=== PATIENT | female | born 1980 | race Caucasian/White ===

== ENCOUNTER 2020-03-01 20:25 | Emergency (ER) | payer BC, SELFPAY ==
--- NOTE | ~2020-03-01 | CT_ITS ---
EXAMINATION: CT abdomen pelvis wo con DATE: 03/01/2020 22:30 INDICATION: Left flank pain TECHNIQUE: Computed tomography (CT) of the abdomen and pelvis was performed without intravenous contr ast. The dose-length product (DLP) was 443.23 mGy-cm. Automated exposure control and iterative recons truction technique were employed. COMPARISON: 12/14/2018 FINDINGS: The lung bases are clear. The heart size is normal. The liver, spleen, pancreas, gallbladde r, and adrenal glands are normal. The right kidney is unremarkable. There are nonobstructing stones o f the left kidney measuring up to 2 mm. No stones are identified in the ureters or bladder. There is no hydronephrosis or hydroureter. No pathologically enlarged abdominal or pelvic lymph nodes are iden tified. There is no free intraperitoneal gas or evidence of bowel obstruction. There is calcified ath erosclerosis of the aorta and many of the other arteries. There is liquid stool throughout much of th e colon which can reflect diarrhea. IMPRESSION: 1. Nonobstructing left nephrolithiasis. No correlate for left flank pain. No hydronephrosis or hydrou reter. Reviewed, dictated and finalized at location A. IMPRESSION: 1. Nonobstructing left nephrolithiasis. No correlate for left flank pain. No hy dronephrosis or hydroureter.
[2020-03-01 20:27] VITALS: BP 136/99; PULSE 77; RESP 19; TEMP 36.9; O2SAT 100
[2020-03-01 20:37] LABS: Basophils Absolute Auto 0.1 K/mm3 (0.0-0.1); Basophils Percent Auto 0.5 % (0.2-1.2); Eosinophils Absolute Auto 0.2 K/mm3 (0-0.3); Eosinophils Percent Auto 1.3 % (0-4.4); Hemoglobin 15.6 g/dL (12.0-15.0); Immature Granulocyte Absolute 0.05 K/mm3 (0.00-0.031); Immature Granulocyte Percent A 0.4 % (0-0.5); Lymphocytes Percent Auto 26.8 % (18.3-44.2); Mean Corpuscular HGB Conc 35.5 g/dl (32-36); Mean Corpuscular Volume 90.3 fl (80-100); Monocytes Absolute Auto 1.1 K/mm3 (0.1-0.6); Monocytes Percent Auto 7.6 % (2.6-8.5); Neutrophils Absolute Auto 8.8 K/mm3 (1.3-6.7); Neutrophils Percent Auto 63.4 % (45.5-73.1); Platelet Count Result 275 k/mm3 (150-375); Red Blood Count 4.87 M/mm3 (4.2-5.4); Red Cell Distribution Width 12.4 % (11.5-14.5); White Blood Count 13.8 K/mm3 (4.5-10.0)
[2020-03-01 20:48] LABS: Add Urine Microscopic? YES; Appearance Urine Clear (Clear); Bacteria Urine Trace /hpf; Bilirubin Urine Negative (Negative); Blood Urine 1+ (Negative); Color Urine Yellow (Yellow); Glucose Urine UA Negative (Negative); Ketones Urine Negative (Negative); Leukocyte Esterase Ur Negative LEU/UL (Negative); Mucus Urine Rare /lpf; Nitrate Urine Negative (Negative); Protein Urine Negative (Negative); RBC Urine 0-2 /hpf (0-2); Specific Grav Ur 1.021 (1.001-1.035); Squamous Epithelial Cell Urine Occasional /hpf (Few); Urobilinogen Urine Negative mg/dL (<2.0); WBC Urine 0-3 /hpf
[2020-03-01 20:50] LABS: Blood Urea Nitrogen 16 mg/dL (7-17); Calcium 9.4 mg/dL (8.4-10.2); Carbon Dioxide 21 mmol/L (22-30); Chloride 105 mmol/L (98-107); Estimated CRCL calculation 90 ml/min; Estimated Glomerular Filt Rate > 60; Glucose 91 mg/dL (65-105); Potassium 3.9 mmol/L (3.4-5.0); Sodium 138 mmol/L (137-145)
--- NOTE | 2020-03-01 21:51 | ED.ABDPAIN ---
HPI - Abdominal Pain General Chief Complaint: Abdominal Pain Stated Complaint: kidney stone left side Time Seen by Provider: 03/01/20 21:50 History of Present Illness HPI narrative: Left flank pain for a couple days. Radiating to the LLQ. Associated with nausea. Feels like a kidney stone. Additionally she noted darker urine. She does report urinary frequency, but no more than usual. No fever, dysuria. Related Data Home Medications Medication Instructions Recorded Confirmed Daily Multivitamin 09/02/19 lisinopril 09/02/19 omeprazole 09/02/19 Allergies Allergy/AdvReac Type Severity Reaction Status Date / Time ketorolac Allergy Mild VOMIT Verified 05/31/19 13:03 tramadol Allergy Mild VOMITING Verified 05/31/19 13:03 Review of Systems Review of Systems: All systems reviewed & are unremarkable except as noted in HPI and below Constitutional: Constitutional: Denies fever(s) Cardiovascular: Cardiovascular: Denies chest pain Respiratory: Respiratory: Denies dyspnea Gastrointestinal: Gastrointestinal: Reports nausea Genitourinary: Genitourinary: Denies hematuria, Reports nocturia, Denies dysuria and Reports flank pain Neurologic: Denies numbness and Denies weakness [facility] Past Medical History Medical History Cholecystitis Depression GERD (gastroesophageal reflux disease) HTN (hypertension) Multiple kidney stones Neuropathy Documented in past medical history, patient unsure induced hypertension Radial head fracture Seasonal allergies Surgical History Surgical History H/O: X3 H/O: hysterectomy Status post cystoscopy with ureteral stent placement Family History Family History Mother Diabetes mellitus Social History Social History Smoking status: Current every day smoker Tobacco type: cigarettes Alcohol intake: current Substance use: never Gender identity (if verbalized by the patient): Female Exam Const: General: healthy appearing, no acute distress and alert Orientation/consciousness: patient oriented x3 HENMT: Head: normal to inspection Neck: Neck: normal visual inspection and no lymphadenopathy Chest: Chest palpation & inspection: no tenderness Resp: Effort & Inspection: normal respiratory effort Auscultation: clear to auscultation bilaterally, no rales, no rhonchi and no wheezes Cardio: Jugular venous distension: no JVD Rate: regular rate Rhythm: regular rhythm Heart sounds: no murmurs GI: Inspection: non-distended GI Palp: Yes Soft to palpation and No Tenderness to palpation present (GI) Skin: General skin exam: normal color Neuro: General: patient oriented x3 and moves all extremities Speech: normal speech Extrem: General: no edema Psych: Appearance: well kempt Affect: normal affect Course Vital Signs Vital signs: Vital Signs Temperature 36.9 C 03/01/20 20:27 Pulse Rate 77 03/01/20 20:27 Respiratory Rate 19 03/01/20 20:27 Blood Pressure 136/99 H 03/01/20 20:27 Pulse Oximetry 100 03/01/20 20:27 Temperature 36.9 C 03/01/20 20:27 Pulse Rate 77 03/01/20 20:27 Respiratory Rate 19 03/01/20 20:27 Blood Pressure 136/99 H 03/01/20 20:27 Pulse Oximetry 100 03/01/20 20:27 MDM - Abdominal Pain Differential Diagnosis Differential diagnosis: Likely calculus of kidney, constipation and diverticulitis Medical Records Attestation: I reviewed the patient's medical records. Lab Data Attestation: I reviewed the patient's lab results. Result diagrams: 03/01/20 20:30 03/01/20 20:30 Labs: Lab Results 03/01/20 03/01/20 03/01/20 Range/Units 20:30 20:30 20:37 WBC 13.8 H (4.5-10.0) K/mm3 RBC 4.87 (4.2-5.4) M/mm3 Hgb 15.6 H (12.0-15.0) g
--- NOTE | 2020-03-02 | PC.NURSE ---
LATE ENTRY; ON 03/01/2020 AT APPROX 2341 PT STATES THAT HER PAIN IS UNCHANGED AFTER THE 1G OFIRMEV. THIS RN INSTRUCTED PT THAT THE EDP HAS HER UP FOR ADMISSION. PT STATES NO, THERE IS SOMETHING WRONG WITH MY KIDNEY, I NEED SOMETHING FOR THIS PAIN . EDP AWARE.
== END 2020-03-02 00:15 | disposition home or self-care (01) ==
PROVIDERS: Emergency Provider Emergency Medicine; PCP Internal Medicine
DX: R10.9 Unspecified abdominal pain (principal); Z87.442 Personal history of urinary calculi; F17.210 Nicotine dependence, cigarettes, uncomplicated; K21.9 Gastro-esophageal reflux disease without esophagitis; I10 Essential (primary) hypertension
CPT/HCPCS: 36415; 74176; 80048; 81001; 85025; 96374; 96375; 99284; J0131; J3010

== ENCOUNTER 2020-11-26 17:04 | Emergency (ER) | payer BC, MEDICAID, SELFPAY ==
[2020-11-26 17:06] VITALS: PULSE 120; RESP 18; TEMP 36.4; O2SAT 98
[2020-11-26 17:55] LABS: Add Urine Microscopic? YES; Appearance Urine Clear (Clear); Bacteria Urine 1+ /hpf; Bilirubin Urine Negative (Negative); Blood Urine Negative (Negative); Color Urine Colorless (Yellow); Glucose Urine UA Negative (Negative); Ketones Urine Negative (Negative); Leukocyte Esterase Ur 1+ LEU/UL (Negative); Mucus Urine Rare /lpf; Nitrate Urine Negative (Negative); Protein Urine Negative (Negative); RBC Urine 0-2 /hpf (0-2); Specific Grav Ur 1.005 (1.001-1.035); Squamous Epithelial Cell Urine Few /hpf (Few); Urobilinogen Urine Negative mg/dL (<2.0)
[2020-11-26] MEDS: ONDANSETRON HCL ODT 4 MG TABLET PO (18:19)
[2020-11-26] MEDS: HYDROmorphone HCL INJ (*CRX) 1 MG/ML SYR IM (18:20)
[2020-11-26] MEDS: predniSONE 20 MG TABLET 60 MG PO (18:20)
--- NOTE | 2020-11-26 18:22 | ED.GENADULT ---
HPI - General Adult General Chief complaint: Extremity Injury, Lower Stated complaint: LEFT LEG PAIN/DECREASED URINE OUTPUT Time Seen by Provider: 11/26/20 17:18 Source: patient Mode of arrival: ambulatory Limitations: no limitations History of Present Illness HPI narrative: Patient is 40 years old white female presented to the ED with sharp stabbing pain at the left thigh posteriorly started roughly 6 days ago. Gets worse with standing, better with ice and the steroid. Few days ago patient started on penicillin and prednisone for dental abscess and is telling me that the prednisone make her leg pain less potent. This morning patient noted that her urine output is not enough as usual. patient denies bowel dysfunction, bladder dysfunction, altered sensation, focal weakness, or saddle numbness, as well Patient denies any fever, chills, nausea, vomiting, diarrhea, constipation, abdominal pain. Patient had history of chronic lower back pain for years. He is to have an injection at L5-S1. Patient is telling me that she had lower back pain almost daily for years, sometime please once a month which lasted for about 10 days. History of hypertension, and smoking. Patient drove to the emergency room by her . Related Data Home Medications Medication Instructions Recorded Confirmed lisinopril 09/02/19 cyclobenzaprine mg 11/26/20 penicillin V potassium 11/26/20 Allergies Allergy/AdvReac Type Severity Reaction Status Date / Time ketorolac Allergy Mild VOMIT Verified 11/26/20 17:08 tramadol Allergy Mild VOMITING Verified 11/26/20 17:08 Review of Systems Review of Systems: Narrative: CONSTITUTIONAL: Denies fever, chills, or sweats. EYES: Denies visual changes, redness, or discharge. ENT: Denies rhinorrhea, congestion, sore throat, or otalgia. CARDIOVASCULAR: Denies chest pain, palpitations, or edema. RESPIRATORY: Denies cough or dyspnea. GASTROINTESTINAL: Denies abdominal pain, nausea, vomiting, or diarrhea. GENITOURINARY: Denies dysuria or hematuria. SKIN: Denies rash or itching. MUSCULOSKELETAL: Denies back pain, joint pain, or myalgia. NEUROLOGIC: Denies headache, numbness, or weakness. PSYCHIATRIC: Denies anxiety or depression. [facility] Past Medical History Medical History (Updated 11/26/20 @ 18:30 by Nataliia Santiago MD) Cholecystitis Depression GERD (gastroesophageal reflux disease) HTN (hypertension) Multiple kidney stones Neuropathy Documented in past medical history, patient unsure induced hypertension Radial head fracture Seasonal allergies Surgical History Surgical History H/O: X3 H/O: hysterectomy Status post cystoscopy with ureteral stent placement Family History Family History Mother Diabetes mellitus Social History Social History Smoking status: Current every day smoker Tobacco type: cigarettes Alcohol intake: current Substance use: never Gender identity (if verbalized by the patient): Female Exam Narrative: Exam Narrative: General appearance: Well-developed, well-nourished Skin: Normal color Head: Normocephalic, nontraumatic Eyes: Clear conjunctiva ENT: Oropharynx normal, ears normal, nose normal Neck: Supple, nontender Chest and respiratory: Airway patent, no respiratory distress, no accessory muscle use Heart: Regular rate/rhythm Abdomen: Soft, nontender, no organomegaly, quiet bowel sounds Vascular: Normal peripheral pulses, normal capillary refill. Musculoskeletal: Slight limited range of motion of left hip because of pain. Diffuse tenderness across lumbar area and in the middle of left buttock. Neurologic: Alert and oriented ?3, CALCULATION REVIEWER is normal as tested, no gross motor deficit, positive leg straight test on the left side.
[2020-11-26 18:48] VITALS: BP 150/90; PULSE 75; O2SAT 100
== END 2020-11-26 18:49 | disposition home or self-care (01) ==
PROVIDERS: Emergency Provider Emergency Medicine; PCP Internal Medicine
DX: M54.16 Radiculopathy, lumbar region (principal); I10 Essential (primary) hypertension; K21.9 Gastro-esophageal reflux disease without esophagitis; Z87.442 Personal history of urinary calculi; F17.210 Nicotine dependence, cigarettes, uncomplicated; Z96.0 Presence of urogenital implants
CPT/HCPCS: 81001; 96372; 99283; A9270; J1170; J7512

== ENCOUNTER 2020-12-26 21:44 | Emergency (ER) | payer BC, MEDICAID, SELFPAY ==
--- NOTE | ~2020-12-26 | CT_ITS ---
EXAMINATION: CT abdomen pelvis wo con DATE: 12/26/2020 23:02 INDICATION: Left flank pain TECHNIQUE: Computed tomography (CT) of the abdomen and pelvis was performed without intravenous contr ast. The dose-length product (DLP) was 231.06 mGy-cm. Automated exposure control and iterative recons truction technique were employed. COMPARISON: 03/01/2020 FINDINGS: The lung bases are clear. The heart size is normal. The liver, spleen, pancreas, gallbladde r, and adrenal glands are normal. There is a 6 mm nonobstructing stone of the left kidney. The right kidney is normal. There is a 6 mm stone in the proximal left ureter with mild hydroureter. No patholo gically enlarged abdominal or pelvic lymph nodes are identified. Colonic diverticulosis is present wi thout evidence of diverticulitis. The appendix is normal. There is mild lumbar spondylosis. IMPRESSION: 1. 6 mm stone of the left proximal ureter causing mild left hydroureter. Consider KUB for treatment p cecil purposes. 2. Nonobstructing left nephrolithiasis. Reviewed, dictated and finalized at location A. IMPRESSION: 1. 6 mm stone of the left proximal ureter causing mild left hydroureter. Consid er KUB for treatment planning purposes. 2. Nonobstructing left nephrolithiasis.
[2020-12-26 21:47] VITALS: BP 186/117; PULSE 70; RESP 18; TEMP 36.4; O2SAT 98
[2020-12-26 22:20] LABS: Anion Gap 7 mmol/L (8-16); Blood Urea Nitrogen 13 mg/dL (7-17); Calcium 9.2 mg/dL (8.4-10.2); Carbon Dioxide 20 mmol/L (22-30); Chloride 110 mmol/L (98-107); Estimated CRCL calculation 103 ml/min; Estimated Glomerular Filt Rate > 60; Glucose 83 mg/dL (65-105); Potassium 3.7 mmol/L (3.4-5.0); Sodium 137 mmol/L (137-145)
[2020-12-26 22:34] VITALS: PULSE 61; RESP 18; O2SAT 98
[2020-12-26] MEDS: SODIUM CHLORIDE 0.9% IV 1,000 ML 999 ML IV CONT (22:52)
[2020-12-26] MEDS: ONDANSETRON INJ 4 MG/2 ML VIAL IV PUSH (22:53)
[2020-12-26 22:54] LABS: Basophils Percent Auto 0.3 % (0.2-1.2); Eosinophils Absolute Auto 0.2 K/mm3 (0-0.3); Hematocrit 38.6 % (37.0-47.0); Hemoglobin 13.8 g/dL (12.0-15.0); Immature Granulocyte Absolute 0.02 K/mm3 (0.00-0.031); Immature Granulocyte Percent A 0.2 % (0-0.5); Lymphocytes Absolute Auto 3.65 K/mm3 (0.9-3.2); Lymphocytes Percent Auto 38.3 % (18.3-44.2); Mean Corpuscular HGB Conc 35.8 g/dl (32-36); Mean Corpuscular Hemoglobin 31.7 pg (26-34); Mean Corpuscular Volume 88.7 fl (80-100); Mean Platelet Volume 10.2 fl (7.4-10.4); Monocytes Absolute Auto 0.8 K/mm3 (0.1-0.6); Monocytes Percent Auto 8.7 % (2.6-8.5); Neutrophils Absolute Auto 4.8 K/mm3 (1.3-6.7); Neutrophils Percent Auto 50.5 % (45.5-73.1); Platelet Count Result 293 k/mm3 (150-375); Red Blood Count 4.35 M/mm3 (4.2-5.4); White Blood Count 9.5 K/mm3 (4.5-10.0)
[2020-12-26] MEDS: MORPHINE SULFATE (*CRX) 4 MG/ML INJ IV PUSH ×2 (22:54→23:54)
[2020-12-26 23:07] LABS: Add Urine Microscopic? YES; Appearance Urine Cloudy (Clear); Bacteria Urine Trace /hpf; Bilirubin Urine Negative (Negative); Blood Urine 1+ (Negative); Calcium Oxalate Crystals Urine Present /hpf; Color Urine Yellow (Yellow); Glucose Urine UA Negative (Negative); Ketones Urine Negative (Negative); Leukocyte Esterase Ur Trace LEU/UL (Negative); Mucus Urine Heavy /lpf; Nitrate Urine Negative (Negative); Protein Urine 2+ mg/dL (Negative); RBC Urine 21-50 /hpf (0-2); Specific Grav Ur 1.028 (1.001-1.035); Squamous Epithelial Cell Urine Many /hpf (Few); WBC Urine 16-20 /hpf
--- NOTE | 2020-12-26 23:13 | PC.NURSE ---
Report to KHADAR Savage, to continue care.
--- NOTE | 2020-12-26 23:36 | ED.GENADULT ---
HPI - General Adult General Chief complaint: Abdominal Pain Stated complaint: kidney stone Time Seen by Provider: 12/26/20 22:34 History of Present Illness HPI narrative: Patient 40-year-old female who presents to emergency department chief complaint of flank pain. Patient reports she has pain on the left side reports it feels similar to whenever she had kidney stones before in the past. Reports that she has had up to a 7 mm stone is been able to pass independently but has required stents before in the past and also other urological procedures stone patient reports that she has a urologist that she is well-known to and is of started taking her Flomax at home already. Related Data Home Medications Medication Instructions Recorded Confirmed lisinopril 09/02/19 cyclobenzaprine mg 11/26/20 penicillin V potassium 11/26/20 Allergies Allergy/AdvReac Type Severity Reaction Status Date / Time ketorolac AdvReac Mild VOMIT Verified 12/26/20 22:52 tramadol AdvReac Mild VOMITING Verified 12/26/20 22:52 Review of Systems Review of Systems: Narrative: A 10 system review of systems was completed on the patient and is negative except for what is stated in the HPI. Nursing and ancillary documentation was reviewed. [facility] Past Medical History Medical History (Updated 12/26/20 @ 23:39 by Jose Roa MD) Cholecystitis Depression GERD (gastroesophageal reflux disease) HTN (hypertension) Multiple kidney stones Neuropathy Documented in past medical history, patient unsure induced hypertension Radial head fracture Seasonal allergies Surgical History Surgical History H/O: X3 H/O: hysterectomy Status post cystoscopy with ureteral stent placement Family History Family History Mother Diabetes mellitus Social History Social History Smoking status: Current every day smoker Tobacco type: cigarettes Alcohol intake: current Substance use: never Gender identity (if verbalized by the patient): Female Exam Narrative: Exam Narrative: GENERAL: Well-appearing, well-nourished, and in no acute distress. HEAD: Normocephalic, atraumatic. EYES: PERRLA and EOMI. ENT: Nares clear, no rhinorrhea or epistaxis. Mucous membranes moist. NECK: Supple. CHEST: Clear to auscultation. No respiratory distress. HEART: Regular rate and rhythm. No murmur heard. Normal peripheral pulses. ABDOMEN: Soft, nontender, nondistended, normal active bowel sounds. EXTREMITIES: Normal range of motion. No edema. SKIN: Warm, dry, no rash. NEURO: No focal deficits. Alert and oriented x3. PSYCH: Normal mood and affect. Course Course Emergency Course: Patient is feeling much better at this time. Vital Signs Vital signs: Vital Signs Temperature 36.4 C L 12/26/20 21:47 Pulse Rate 70 12/26/20 21:47 Respiratory Rate 18 12/26/20 21:47 Blood Pressure 186/117 H 12/26/20 21:47 Pulse Oximetry 98 12/26/20 21:47 Temperature 36.4 C L 12/26/20 21:47 Pulse Rate 61 12/26/20 22:34 Respiratory Rate 18 12/26/20 22:34 Blood Pressure 186/117 H 12/26/20 21:47 Pulse Oximetry 98 12/26/20 22:34 Medical Decision Making Vital Signs Vital Signs: Vital Signs Temperature 36.4 C L 12/26/20 21:47 Pulse Rate 70 12/26/20 21:47 Respiratory Rate 18 12/26/20 21:47 Blood Pressure 186/117 H 12/26/20 21:47 Pulse Oximetry 98 12/26/20 21:47 Temperature 36.4 C L 12/26/20 21:47 Pulse Rate 61 12/26/20 22:34 Respiratory Rate 18 12/26/20 22:34 Blood Pressure 186/117 H 12/26/20 21:47 Pulse Oximetry 98 12/26/20 22:34 Lab Data Result diagrams: 12/26/20 22:46 12/26/20 21:59 Labs: Lab Results 12/26/20 12/26/20 12/26/20 Range/Units 21:59 22:46 22:47 WBC 9
[2020-12-26] MEDS: CIPROFLOXACIN 500 MG TAB PO (23:55)
[2020-12-27] VITALS: BP 180/110; PULSE 57; RESP 12; O2SAT 96
== END 2020-12-27 | disposition home or self-care (01) ==
PROVIDERS: Emergency Provider Emergency Medicine; PCP Internal Medicine
DX: N20.1 Calculus of ureter (principal); N39.0 Urinary tract infection, site not specified; K21.9 Gastro-esophageal reflux disease without esophagitis; I10 Essential (primary) hypertension; G62.9 Polyneuropathy, unspecified
CPT/HCPCS: 36415; 74176; 80048; 81001; 85025; 87086; 87088; 96361; 96374; 96375; 99284; A9270; J2270; J2405; J7030

== ENCOUNTER 2020-12-28 12:42 | Outpatient (CLI) | payer BC, MEDICAID, SELFPAY ==
--- NOTE | ~2020-12-28 | XR_ITS ---
EXAMINATION: XR abdomen/kub 1V INDICATION: Left ureteral stone TECHNIQUE: Supine views of the abdomen were obtained on 2 radiographs. COMPARISON: CT, 12/26/2020 FINDINGS: A subtle 6 mm calcification projects between the left L2 and L3 transverse processes in the expected location of the proximal left ureter and corresponding to the expected position of the left ureteral stone identified on the comparison CT. No additional urolithiasis is identified. There are phleboliths of the pelvis. The bowel gas pattern is normal. The lung bases are clear. The visualized osseous structures are unremarkable. IMPRESSION: 1. 6 mm stone projecting in the expected location of the proximal left ureter. Reviewed, dictated and finalized at location A.
== END 2020-12-28 12:43 | disposition home or self-care (01) ==
PROVIDERS: PCP Internal Medicine; Visit Provider Nurse Practitioner Adult Health
DX: N20.1 Calculus of ureter (principal)
CPT/HCPCS: 74018

== ENCOUNTER 2020-12-29 02:12 | Day surgery (SDC) | payer BC, MEDICAID, SELFPAY ==
[2020-12-28 13:42] VITALS: BMI 30.1
[2020-12-29] VITALS (9 sets, daily range): BP systolic 156–194; BP diastolic 103–119; PULSE 60–83; RESP 13–20; TEMP 36.4–36.6; O2SAT 95–99
--- NOTE | ~2020-12-29 | XR_ITS ---
EXAMINATION: XR fluoroscopy no charge INDICATION: Left-sided stone extraction TECHNIQUE: Four intraoperative fluoroscopic images are submitted for review. Total fluoroscopic time was 23.8 seconds. COMPARISON: 12/28/2020 FINDINGS: The central melt specialist fluoroscopic image is unremarkable. The left ureter is cannulated on one of the p rovided fluoroscopic images. IMPRESSION: 1. Please refer to procedure note for full details. Reviewed, dictated and finalized at location A.
--- NOTE | 2020-12-29 06:25 | ECG_ITS ---
Measurements Intervals [place] Rate: 66 P: -2 [place]: 177 QRS: 12 QRSD: 101 T: 20 QT: 415 QTc: 437 Interpretive Statements SINUS RHYTHM NORMAL ECG Electronically Signed On 12-29-2020 14:15:47 CDT by Leonel Méndez D.O.
--- NOTE | 2020-12-29 06:43 | WPDHPUPDATE1 ---
History and Physical Update Update Date/Time: 12/29/20 06:43 History and Physical has been reviewed, including an updated exam of the patient. There are NO changes in the patient's condition. Risks, benefits, and alternatives have been discussed and questions answered. Patient agrees to proceed with procedure.
--- NOTE | 2020-12-29 06:49 | WPDHPUPDATE1 ---
History and Physical Update Update Date/Time: 12/29/20 06:49 History and Physical has been reviewed, including an updated exam of the patient. There are NO changes in the patient's condition. Risks, benefits, and alternatives have been discussed and questions answered. Patient agrees to proceed with procedure.
--- NOTE | 2020-12-29 13:21 | WPDANESEPPF ---
Anes - Initial Pre Proc Eval Procedure: Operation Date: 12/29/20 15:30 Proposed Procedures p Cystoscopy, Left Ureteroscopy, Left Retrograde Pyelogram, Left Stone Extraction, Left Stent Placement - Maximino Gonzalez MD s Possible Holmium Laser Procedure - Maximino Gonzalez MD Date/Time: 12/29/20 13:21 Surgeon: Maximino Gonzalez MD Pre Op Diagnosis: left renal stone/Ureteral Stone Patient Data Age: 40 Gender: F Height: 1.6 m Weight: 77.11 kg Allergies Allergy/AdvReac Type Severity Reaction Status Date / Time ketorolac AdvReac Mild VOMITING/HE Verified 12/29/20 13:39 ADACHE tramadol AdvReac Mild VOMITING/HE Verified 12/29/20 13:39 ADACHE Home Medications Medication Instructions Recorded Confirmed Type hydrocodone-acetaminophen 1 tablet PO Q6H PRN 3 Days #12 12/26/20 12/29/20 Rx tablet ondansetron 4 mg PO Q8H PRN #10 tablet 12/26/20 12/29/20 Rx ciprofloxacin HCl [Cipro] 500 mg PO BID 12/28/20 12/29/20 History lisinopril-hydrochlorothiazide 1 tablet PO BID 12/28/20 12/29/20 History omeprazole 20 mg PO DAILY 12/28/20 12/29/20 History tamsulosin [Flomax] 0.4 mg PO DAILY 12/28/20 12/29/20 History Patient hx anesthesia problems: none Family hx anesthesia problems: none PMFSH Past Medical History Medical History Cholecystitis Depression GERD (gastroesophageal reflux disease) HTN (hypertension) Multiple kidney stones Neuropathy Documented in past medical history, patient unsure Obesity induced hypertension Radial head fracture Seasonal allergies Smoker Surgical History Surgical History H/O: X3 H/O: hysterectomy Status post cystoscopy with ureteral stent placement Family History Family History Mother Diabetes mellitus Social History Social History Smoking packs per day: 0.5 Smoking cigarettes per day: 10.0 Years smoked: 25 Smoking pack-years: 12.50 Smoking status: Current every day smoker Tobacco type: cigarettes Alcohol intake: never Substance use: never Substance use type: does not use Living arrangements: with family Gender identity (if verbalized by the patient): Female Spiritual care concerns: No Anes - Eval Final PreProcedure Day of Procedure 12/29/20 13:21 Patient weight: obese Heart: regular rate and rhythm Lungs: clear to auscultation and normal air movement Airway: Mallampati scale class II Neurological: alert and oriented Last oral intake: >/= 8 hours ASA classification: III Emergent: no Anesthetic plan: proceed Anesthesia type and monitoring: general LMA Informed Consent: The patient's anesthetic plan and its attendant risks and benefits were discussed with the patient/family/POA. Questions were solicited and answers provided to the satisfaction of the patient/family/POA.
[2020-12-29] MEDS: LACTATED RINGERS 1,000 ML 30 ML IV CONT (14:35)
[2020-12-29] MEDS: fentaNYL CITRATE INJ (*CRX) 100 MCG/2 ML VIAL 50 MCG IV PUSH (14:36)
[2020-12-29] MEDS: ceFAZolin 2 GM/D5W 50 ML 2 GM/50 ML BAG IVPB (17:17)
[2020-12-29] MEDS: LIDOCAINE HCL 2% GEL UROJET 10 ML PKG MUCOUS MEM (17:44)
--- NOTE | 2020-12-29 17:48 | PM.PROC ---
Procedure Note - Detailed Date of procedure: 12/29/20 Pre-op diagnosis: left renal stone/Ureteral Stone Post-op diagnosis: same Procedure performed: Cystoscopy, left ureteroscopy with stone extraction Description of procedure: The patient was brought to the operative suite where she is prepped and draped in a routine sterile fashion while in the dorsal lithotomy position after the uneventful induction of a general LMA anesthetic. A 19F rigid cystoscope was placed in the bladder. The patient had no evidence of urethral stricture or bladder neck contracture. The bladder mucosa was endoscopically normal without hyperemia or neoplasm. There was a single, orthotopic ureteral orifice bilaterally. A 0.035 glidewire was advanced into the left renal pelvis under fluoroscopy. The distal ureter was dilated with an 8F/10F ureteral dilator. Ureteroscopy was undertaken with a short, tapered, semi-rigid ureteroscope and the left proximal ureteal stone was extracted with ease using a 1.9F Escape disposable stone basket. Due to the ease of this manipulation I opted not to place a ureteral stent. The patient's bladder was emptied and was taken to the recovery room having tolerated this procedure well. Anesthesia: GLMA Surgeon: Maximino Gonzalez MD Estimated blood loss (mL): 0 Drains: No Packing: No Pathology: yes Complications: No immediate complications Condition: stable Disposition: PACU
[2020-12-29] MEDS: fentaNYL CITRATE INJ (*CRX) 100 MCG/2 ML VIAL 25 MCG IV PUSH ×5 (17:57→18:35)
[2020-12-29] MEDS: hydrALAZINE HCL 20 MG/ML VIAL 10 MG IV PUSH (18:17)
[2020-12-29] MEDS: oxyCODONE HCL (*CRX) 5 MG TAB IR PO (19:05)
== END 2020-12-29 19:32 | disposition home or self-care (01) ==
PROVIDERS: PCP Internal Medicine; Visit Provider Urology
PROC: (CPT 52352; principal; 2020-12-29 15:30)
DX: N20.1 Calculus of ureter (principal); I10 Essential (primary) hypertension; K21.9 Gastro-esophageal reflux disease without esophagitis; F32.9 Major depressive disorder, single episode, unspecified; F17.210 Nicotine dependence, cigarettes, uncomplicated; E66.9 Obesity, unspecified; Z68.30 Body mass index [BMI] 30.0-30.9, adult
CPT/HCPCS: 52352; 82365; 88300; 93005; A9270; C1769; J0131; J0360; J0690; J1100; J2250; J2405; J2704; J3010; J7120; Q9966

== ENCOUNTER 2021-06-27 17:09 | Emergency (ER) | payer MEDICAID, SELFPAY ==
[2021-06-27 17:36] VITALS: BP 151/125; PULSE 106; RESP 17; TEMP 36.4; O2SAT 99
--- NOTE | 2021-06-27 19:59 | PC.NURSE ---
Pt called for XY at 1929, no answer. Pt called for vitals at 1958, no answer.
== END 2021-06-28 02:23 | disposition left against medical advice (07) ==
LOC: ANHED 20:09
PROVIDERS: PCP Internal Medicine
DX: M79.601 Pain in right arm (principal)
CPT/HCPCS: 99199

== ENCOUNTER 2021-08-08 21:33 | Emergency (ER) | payer OTHER, SELFPAY ==
[2021-08-08 21:52] VITALS: BP 192/132; PULSE 90; RESP 20; TEMP 36.3; O2SAT 98
== END 2021-08-09 03:28 | disposition left against medical advice (07) ==
PROVIDERS: PCP Internal Medicine
DX: Z53.21 Procedure and treatment not carried out due to patient leaving prior to being seen by health care provider (principal)
CPT/HCPCS: 99199

== ENCOUNTER 2021-08-20 14:29 | Emergency (ER) | payer OTHER, SELFPAY ==
[2021-08-20] VITALS (34 sets, daily range): BP systolic 136–202; BP diastolic 96–139; PULSE 65–190; RESP 11–26; TEMP 36.4; O2SAT 95–100
--- NOTE | ~2021-08-20 | CT_ITS ---
EXAMINATION: CT abdomen pelvis w con INDICATION: Severe right flank pain TECHNIQUE: Computed tomographic images of the abdomen and pelvis were obtained after the administrati on of 100 cc of Omnipaque 350 intravenous contrast. The dose-length product (DLP) was 595.13 mGy-cm. Automated exposure control and iterative reconstruction technique were employed. COMPARISON: CT from today and multiple prior abdomen and pelvis CT FINDINGS: The lung bases are clear. The heart size is normal. The liver, spleen, pancreas, gallbladde r, and adrenal glands are normal. The kidneys are unremarkable. No pathologically enlarged abdominal or pelvic lymph nodes are identified. There is no free intraperitoneal gas or evidence of bowel obstr uction. There is a small volume of liquid stool in the proximal colon. The appendix is normal. A romero us luteum is noted in the left ovary. There is mild lumbar spondylosis. IMPRESSION: 1. No CT correlate for the patient's symptoms. Reviewed, dictated and finalized at location F. S AND MARKETING AGENT
--- NOTE | ~2021-08-20 | CT_ITS ---
EXAMINATION: CT abdomen pelvis wo con DATE: 08/20/2021 16:52 INDICATION: Right flank pain TECHNIQUE: Computed tomography (CT) of the abdomen and pelvis was performed without intravenous contr ast. The dose-length product (DLP) was 232.04 mGy-cm. Automated exposure control and iterative recons truction technique were employed. COMPARISON: 12/26/2020 FINDINGS: The lung bases are clear. The heart size is normal. The liver, spleen, pancreas, gallbladde r, and adrenal glands are normal. The kidneys are unremarkable. No stones are identified in the kidne ys, ureters, or bladder. There is no hydronephrosis or hydroureter. Phleboliths are noted in the pelv is. No pathologically enlarged abdominal or pelvic lymph nodes are identified. There is no free intra peritoneal gas or evidence of bowel obstruction. There is mild lumbar spondylosis. IMPRESSION: 1. No CT correlate for the patient's symptoms. Reviewed, dictated and finalized at location F. ING MACHINE OPERATOR HELPER
--- NOTE | ~2021-08-20 | XR_ITS ---
EXAMINATION: XR chest 2V DATE: 08/20/2021 14:58 INDICATION: Heart palpitations TECHNIQUE: PA and lateral views of the chest are obtained. COMPARISON: 04/16/2017 FINDINGS: The lungs are free of acute opacities. There is no pleural effusion or pneumothorax. The ca rdiomediastinal silhouette is normal. There is mild thoracic spondylosis. IMPRESSION: 1. No acute cardiopulmonary abnormality. Reviewed, dictated and finalized at location F. MBLY LEAD PERSON
--- NOTE | 2021-08-20 14:36 | ECG_ITS ---
Measurements Intervals [place] Rate: 83 P: -11 [place]: 158 QRS: 16 QRSD: 93 T: 26 QT: 358 QTc: 423 Interpretive Statements SINUS RHYTHM DELAYED PRECORDIAL R/S TRANSITION BASELINE ARTIFACT- III, AVF BORDERLINE ECG Electronically Signed On 08-20-2021 16:07:46 BRIM POUNCER MACHINE OPERATOR by Leonel Méndez D.O.
--- NOTE | 2021-08-20 14:37 | ED.ABDPAIN ---
HPI - Abdominal Pain General Chief Complaint: Abdominal Pain Stated Complaint: flank pain Time Seen by Provider: 08/20/21 14:37 Source: patient Mode of arrival: ambulatory Limitations: no limitations History of Present Illness HPI narrative: The patient is a 41 yo female with a history of HTN, nephrolithiasis, recurrent UTI, presenting for evaluation of right flank pain. Patient reports decreased urination, cloudy urine. No dysuria. Denies fever or chills. She does report nausea without vomiting. Denies diarrhea. Reports some radiation of the pain into the right upper quadrant. Pt denies any chest pain. Of note, patient reported palpitations in the waiting room as well as lightheadedness. Of note, patient noted that her heart rate was 190 in triage, but currently 70s in room. Pt without history of arrhythmia. Denies any symptoms at this time. Patient with ureteral stent and stone removal in December [address] Gonzalez. Related Data Home Medications Medication Instructions Recorded Confirmed acetaminophen-codeine tablet 08/20/21 amoxicillin-pot clavulanate tablet 08/20/21 lisinopril-hydrochlorothiazide 1 tablet PO BID 08/20/21 08/20/21 Allergies Allergy/AdvReac Type Severity Reaction Status Date / Time ketorolac AdvReac Mild VOMITING/HE Verified 08/20/21 14:40 ADACHE tramadol AdvReac Mild VOMITING/HE Verified 08/20/21 14:40 ADACHE Review of Systems Review of Systems: CONSTITUTIONAL: Denies fever, chills, or sweats. EYES: Denies visual changes, redness, or discharge. ENT: Denies rhinorrhea, congestion, sore throat, or otalgia. CARDIOVASCULAR: Denies chest pain, denies current palpitations, or edema. RESPIRATORY: Denies cough or dyspnea. GASTROINTESTINAL: Reports rifling pain, nausea without vomiting GENITOURINARY: Denies dysuria or hematuria. Reports urinary hesitancy. SKIN: Denies rash or itching. MUSCULOSKELETAL: Denies other back pain, joint pain, or myalgia. NEUROLOGIC: Denies headache, numbness, or weakness. [facility] Past Medical History Medical History Cholecystitis Depression GERD (gastroesophageal reflux disease) HTN (hypertension) Multiple kidney stones Neuropathy Documented in past medical history, patient unsure Obesity induced hypertension Radial head fracture Seasonal allergies Smoker Surgical History Surgical History H/O: X3 H/O: hysterectomy Status post cystoscopy with ureteral stent placement Family History Family History Mother Diabetes mellitus Social History Social History Smoking packs per day: 0.5 Smoking cigarettes per day: 10.0 Years smoked: 25 Smoking pack-years: 12.50 Smoking status: Current every day smoker Tobacco type: cigarettes Alcohol intake: never Alcohol use details: Socially Substance use: never Substance use type: does not use Gender identity (if verbalized by the patient): Female Spiritual care concerns: No Exam Narrative: GENERAL: Awake, alert, conversant HEAD: Normocephalic, atraumatic. EYES: PERRLA and EOMI. ENT: Nares clear, no rhinorrhea or epistaxis. Mucous membranes moist. NECK: Supple. CHEST: No respiratory distress, breathing even and non labored HEART: Regular rate, sinus rhythm ABDOMEN:Non distended, right flank pain on exam EXTREMITIES: Normal range of motion. No edema. SKIN: Warm, dry, no rash. NEURO:No focal deficits. Alert and oriented x3 Course Vital Signs Vital signs: Vital Signs Temperature 36.4 C L 08/20/21 14:30 Pulse Rate 190 H 08/20/21 14:30 Respiratory Rate 19 08/20/21 14:30 Blood Pressure 153/132 H 08/20/21 14:30 Pulse Oximetry 100 08/20/21 14:30 Temperature 36.4 C L 08/20/21 14:30 Pulse Rate 72 08/20/21 18:31 Respiratory Rate 15 08/20/21 18:31 Blood Pressure 153/113 H
[2021-08-20 15:28] LABS: Basophils Percent Auto 0.4 % (0.2-1.2); Eosinophils Absolute Auto 0.1 K/mm3 (0-0.3); Eosinophils Percent Auto 0.8 % (0-4.4); Hematocrit 44.9 % (37.0-47.0); Hemoglobin 15.7 g/dL (12.0-15.0); Immature Granulocyte Absolute 0.05 K/mm3 (0.00-0.031); Immature Granulocyte Percent A 0.5 % (0-0.5); Lymphocytes Absolute Auto 3.02 K/mm3 (0.9-3.2); Lymphocytes Percent Auto 31.7 % (18.3-44.2); Mean Corpuscular Hemoglobin 31.7 pg (26-34); Mean Corpuscular Volume 90.7 fl (80-100); Monocytes Absolute Auto 0.8 K/mm3 (0.1-0.6); Monocytes Percent Auto 8.5 % (2.6-8.5); Neutrophils Absolute Auto 5.5 K/mm3 (1.3-6.7); Neutrophils Percent Auto 58.1 % (45.5-73.1); Platelet Count Result 272 k/mm3 (150-375); Red Blood Count 4.95 M/mm3 (4.2-5.4); Red Cell Distribution Width 12.6 % (11.5-14.5); White Blood Count 9.5 K/mm3 (4.5-10.0)
[2021-08-20] MEDS: ONDANSETRON INJ 4 MG/2 ML VIAL (15:32)
[2021-08-20] MEDS: MORPHINE SULFATE (*CRX) 4 MG/ML INJ (15:32)
[2021-08-20] MEDS: SODIUM CHLORIDE 0.9% IV 1,000 ML 999 ML (15:33)
[2021-08-20 15:39] LABS: Lactic Acid Reflex 1.2 mmol/L (0.7-2.1)
[2021-08-20 15:40] LABS: Alanine Aminotransferase 34 U/L (4-35); Albumin Level 4.9 g/dL (3.5-5.1); Alkaline Phosphatase 76 U/L (38-126); Anion Gap 13 mmol/L (8-16); Aspartate Amino Transferase 37 U/L (14-36); Bilirubin,Total 0.8 mg/dL (0.2-1.3); Blood Urea Nitrogen 12 mg/dL (7-17); Calcium 9.5 mg/dL (8.4-10.2); Carbon Dioxide 20 mmol/L (22-30); Chloride 106 mmol/L (98-107); Estimated CRCL calculation 89 ml/min; Estimated Glomerular Filt Rate > 60; Glucose 86 mg/dL (65-110); Potassium 3.7 mmol/L (3.4-5.0); Sodium 139 mmol/L (137-145)
[2021-08-20 15:50] LABS: Troponin I < 0.012 ng/mL (0.000-0.034)
[2021-08-20 16:25] LABS: Add Urine Microscopic? YES; Appearance Urine Cloudy (Clear); Bacteria Urine Trace /hpf; Bilirubin Urine Negative (Negative); Blood Urine Negative (Negative); Color Urine Yellow (Yellow); Glucose Urine UA Negative (Negative); Ketones Urine Negative (Negative); Leukocyte Esterase Ur Negative LEU/UL (Negative); Mucus Urine Few /lpf; Nitrate Urine Negative (Negative); Protein Urine Negative (Negative); Squamous Epithelial Cell Urine Many /hpf (Few); Urobilinogen Urine Negative mg/dL (<2.0); WBC Urine 0-3 /hpf
[2021-08-20 16:41] LABS: Troponin I < 0.012 ng/mL (0.000-0.034)
[2021-08-20] MEDS: HYDROmorphone HCL INJ (*CRX) 1 MG/ML SYR (17:11)
== END 2021-08-20 20:13 | disposition home or self-care (01) ==
PROVIDERS: Emergency Provider Emergency Medicine; PCP Internal Medicine
DX: R10.9 Unspecified abdominal pain (principal); I10 Essential (primary) hypertension; K21.9 Gastro-esophageal reflux disease without esophagitis; Z87.442 Personal history of urinary calculi; G62.9 Polyneuropathy, unspecified; E66.9 Obesity, unspecified; Z68.30 Body mass index [BMI] 30.0-30.9, adult; F17.210 Nicotine dependence, cigarettes, uncomplicated
CPT/HCPCS: 36415; 71046; 74176; 74177; 74178; 80053; 81001; 81025; 83605; 84443; 84484; 85025; 93005; 96361; 96374; 96375; 99284; J1170; J2270; J2405; J7030; Q9967

== ENCOUNTER 2021-11-28 17:08 | Emergency (ER) | payer OTHER, SELFPAY ==
--- NOTE | ~2021-11-28 | XR_ITS ---
EXAM: XR abdomen/kub 1V HISTORY: evaluate for resolved urolithiasis, RT SIDED PAIN X 2 DAYS COMPARISON: 12/28/2020. CT abdomen pelvis 08/20/2021. FINDINGS: Clear lung bases. Paucity of small bowel gas. Normal-appearing large bowel gas pattern. He patomegaly. Pelvic phleboliths. Regional bones and soft tissues normal for age. IMPRESSION: No radiographic evidence of nephrolithiasis. Reviewed, dictated and finalized at location K.
[2021-11-28 17:10] VITALS: BP 162/123; PULSE 98; RESP 17; TEMP 37.2; O2SAT 100
--- NOTE | 2021-11-28 19:47 | ED.ABDPAIN ---
HPI - Abdominal Pain General Chief Complaint: Abdominal Pain Stated Complaint: kidney stone Time Seen by Provider: 11/28/21 19:39 History of Present Illness HPI narrative: 41-year-old female presented the emergency room with complaints of right flank pain for 2 days. Patient has a known history of urolithiasis. Patient was seen at an outside emergency room and diagnosed with a kidney stone measuring 3 x 3 at the right UVJ. Patient states that she thinks she might of passed it following her emergency room visit the other day. But reports the pain is returned. Associated with decreased urine flow and nausea. Related Data Home Medications Medication Instructions Recorded Confirmed acetaminophen-codeine tablet 08/20/21 amoxicillin-pot clavulanate tablet 08/20/21 lisinopril-hydrochlorothiazide 1 tablet PO BID 08/20/21 08/20/21 Allergies Allergy/AdvReac Type Severity Reaction Status Date / Time tramadol AdvReac Mild VOMITING/HE Verified 08/20/21 14:40 ADACHE Review of Systems Review of Systems: CONSTITUTIONAL: Denies fever, chills, or sweats. EYES: Denies visual changes, redness, or discharge. ENT: Denies rhinorrhea, congestion, sore throat, or otalgia. CARDIOVASCULAR: Denies chest pain, palpitations, or edema. RESPIRATORY: Denies cough or dyspnea. GASTROINTESTINAL: Reports right flank pain, nausea GENITOURINARY: Denies dysuria or hematuria. SKIN: Denies rash or itching. MUSCULOSKELETAL: Denies back pain, joint pain, or myalgia. NEUROLOGIC: Denies headache, numbness, dizziness, or weakness. PSYCHIATRIC: Denies anxiety or depression. [facility] Past Medical History Medical History Cholecystitis Depression GERD (gastroesophageal reflux disease) HTN (hypertension) Multiple kidney stones Neuropathy Documented in past medical history, patient unsure Obesity induced hypertension Radial head fracture Seasonal allergies Smoker Surgical History Surgical History H/O: X3 H/O: hysterectomy Status post cystoscopy with ureteral stent placement Family History Family History Mother Diabetes mellitus Social History Social History Smoking packs per day: 0.5 Smoking cigarettes per day: 10.0 Years smoked: 25 Smoking pack-years: 12.50 Smoking status: Current every day smoker Tobacco type: cigarettes Alcohol intake: never Alcohol use details: Socially Substance use: never Substance use type: does not use Gender identity (if verbalized by the patient): Female Spiritual care concerns: No Exam Narrative: GENERAL: Well-appearing, well-nourished, and in no acute distress. HEAD: Normocephalic, atraumatic. EYES: PERRLA and EOMI. CHEST: Clear to auscultation. No respiratory distress. No wheezes rales or rhonchi HEART: Regular rate and rhythm. No murmur heard. Normal peripheral pulses. ABDOMEN: Soft, nontender, nondistended, normal active bowel sounds. Right CVA tenderness EXTREMITIES: Normal range of motion. No edema. SKIN: Warm, dry, no rash. NEURO: No focal deficits. Alert and oriented x3. PSYCH: Normal mood and affect. Course Vital Signs Vital signs: Vital Signs Temperature 37.2 C 11/28/21 17:10 Pulse Rate 98 11/28/21 17:10 Respiratory Rate 17 11/28/21 17:10 Blood Pressure 162/123 H 11/28/21 17:10 Pulse Oximetry 100 11/28/21 17:10 Temperature 37.2 C 11/28/21 17:10 Pulse Rate 75 11/28/21 20:17 Respiratory Rate 15 11/28/21 20:17 Blood Pressure 175/132 H 11/28/21 20:17 Pulse Oximetry 100 11/28/21 20:17 MDM - Abdominal Pain MDM Narrative Medical decision making narrative: 41-year-old female presented the emergency room with complaints of right flank pain. Patient states that she was seen at an outside emergency room 2 days ago, diagnosed with a urolithiasi
[2021-11-28] MEDS: KETOROLAC 30 MG/ML VIAL (*BKC) IV PUSH (20:08)
[2021-11-28] MEDS: ONDANSETRON INJ 4 MG/2 ML VIAL IV PUSH (20:09)
[2021-11-28] MEDS: diphenhydrAMINE HCl INJ 50 MG/ML VIAL 25 MG IV PUSH (20:09)
[2021-11-28] MEDS: SODIUM CHLORIDE 0.9% IV 1,000 ML 999 ML IV CONT (20:09)
[2021-11-28 20:17] VITALS: BP 175/132; PULSE 75; RESP 15; O2SAT 100
[2021-11-28 20:21] LABS: Basophils Absolute Auto 0.1 K/mm3 (0.0-0.1); Basophils Percent Auto 0.6 % (0.2-1.2); Eosinophils Absolute Auto 0.1 K/mm3 (0-0.3); Hematocrit 42.4 % (37.0-47.0); Hemoglobin 14.7 g/dL (12.0-15.0); Immature Granulocyte Absolute 0.04 K/mm3 (0.00-0.031); Immature Granulocyte Percent A 0.4 % (0-0.5); Lymphocytes Absolute Auto 3.88 K/mm3 (0.9-3.2); Lymphocytes Percent Auto 37.5 % (18.3-44.2); Mean Corpuscular HGB Conc 34.7 g/dl (32-36); Mean Corpuscular Hemoglobin 31.3 pg (26-34); Mean Corpuscular Volume 90.2 fl (80-100); Mean Platelet Volume 9.5 fl (7.4-10.4); Monocytes Absolute Auto 0.8 K/mm3 (0.1-0.6); Monocytes Percent Auto 7.3 % (2.6-8.5); Neutrophils Absolute Auto 5.5 K/mm3 (1.3-6.7); Neutrophils Percent Auto 53.2 % (45.5-73.1); Platelet Count Result 245 k/mm3 (150-375); White Blood Count 10.3 K/mm3 (4.5-10.0)
[2021-11-28 20:22] LABS: Appearance Urine Clear (Clear); Bilirubin Urine Negative (Negative); Blood Urine Negative (Negative); Color Urine Yellow (Yellow); Glucose Urine UA Negative (Negative); Ketones Urine Negative (Negative); Leukocyte Esterase Ur Negative LEU/UL (Negative); Nitrate Urine Negative (Negative); Protein Urine Negative (Negative); Urobilinogen Urine 0.2 mg/dL (<2.0); pH Urine 5.5 (5.0-9.0)
[2021-11-28 20:24] LABS: Add Urine Microscopic? NO
[2021-11-28 20:30] LABS: Alanine Aminotransferase 29 U/L (4-35); Albumin Level 4.7 g/dL (3.5-5.1); Alkaline Phosphatase 73 U/L (38-126); Anion Gap 8 mmol/L (8-16); Aspartate Amino Transferase 26 U/L (14-36); Bilirubin,Total 0.3 mg/dL (0.2-1.3); Blood Urea Nitrogen 10 mg/dL (7-17); Calcium 9.4 mg/dL (8.4-10.2); Carbon Dioxide 24 mmol/L (22-30); Chloride 106 mmol/L (98-107); Estimated CRCL calculation 89 ml/min; Estimated Glomerular Filt Rate > 60; Glucose 86 mg/dL (65-110); Potassium 3.7 mmol/L (3.4-5.0); Sodium 138 mmol/L (137-145)
[2021-11-28] MEDS: FAMOTIDINE 20 MG/2 ML VIAL IV PUSH (20:33)
[2021-11-28] MEDS: methylPREDNISolone SOD SUCC 125 MG VIAL IV PUSH (20:34)
[2021-11-28 21:53] VITALS: BP 169/88; PULSE 81; RESP 16; O2SAT 100
[2021-11-28] MEDS: MORPHINE SULFATE (*CRX) 4 MG/ML INJ IV PUSH (21:53)
== END 2021-11-28 22:36 | disposition home or self-care (01) ==
LOC: ANHED 19:54
PROVIDERS: Emergency Provider Nurse Practitioner Family; PCP Internal Medicine
DX: R10.9 Unspecified abdominal pain (principal); I10 Essential (primary) hypertension; K21.9 Gastro-esophageal reflux disease without esophagitis; E66.9 Obesity, unspecified; Z68.30 Body mass index [BMI] 30.0-30.9, adult; F17.210 Nicotine dependence, cigarettes, uncomplicated; Z87.442 Personal history of urinary calculi
CPT/HCPCS: 36415; 74018; 80053; 81003; 85025; 96361; 96374; 96375; 99284; J1200; J1885; J2270; J2405; J2930; J7030

== ENCOUNTER 2022-03-27 20:18 | Emergency (ER) | payer OTHER, SELFPAY ==
[2022-03-27] VITALS (12 sets, daily range): BP systolic 179–212; BP diastolic 109–135; PULSE 61–87; RESP 13–22; TEMP 36.7; O2SAT 96–100
--- NOTE | ~2022-03-27 | US_ITS ---
EXAMINATION: US pelvic complete w TV DATE: 03/27/2022 23:46 INDICATION: Left lower quadrant pain. Abnormal CT. Left ovarian cyst. Comparison:CT dated 03/27/2022 TECHNIQUE: Multiple transabdominal and endovaginal sonographic images of the pelvis performed. FINDINGS: The uterus and right ovary are surgically absent. Left ovary measures 4 x 3.8 x 3.7 cm and contains a cyst measuring 4 x 3.4 x 2.9 cm. There is no free fluid in the pelvis. There are no abnor mal masses seen on either side. IMPRESSION: 1. Slightly complicated 4 cm left ovarian cysts, likely benign. Follow-up ultrasound in 6-8 weeks rec ommended to assess resolution. Reviewed, dictated and finalized at location B. IMPRESSION: 1. Slightly complicated 4 cm left ovarian cysts, likely benign. Follow-up ultra sound in 6-8 weeks recommended to assess resolution.
--- NOTE | ~2022-03-27 | XR_ITS ---
EXAMINATION: XR abdomen/kub 1V DATE: 03/28/2022 01:01 INDICATION: 3 mm proximal left ureteral stone TECHNIQUE: A supine view of the abdomen on 2 radiographs was obtained. COMPARISON: CT dated 03/27/2022 FINDINGS: Subtle symmetric bilateral renal left grams and excreted contrast in the bilateral renal collecting s ystems, proximal ureters and in the bladder from the earlier contrast-enhanced CT. The stone previous ly noted in the proximal left ureter is unable to be identified and may be obscured by the excreted c ontrast. No hydronephrosis. Unchanged phleboliths in the left hemipelvis. Normal bowel gas pattern. L howie bases are clear. Heart size within normal limits for AP technique. Mild lumbar levocurvature. IMPRESSION: 1. Previous identified proximal left ureteral stone is unable to be identified but may be obscured by excreted contrast. No hydronephrosis or asymmetrically delayed left nephrogram to suggest a signific ant obstruction. Reviewed, dictated and finalized at location A. IMPRESSION: 1. Previous identified proximal left ureteral stone is unable to be identified but may be obscured by excreted contrast. No hydronephrosis or asymmetrically d elayed left nephrogram to suggest a significant obstruction.
--- NOTE | ~2022-03-27 | CT_ITS ---
EXAMINATION: CT abdomen pelvis w con DATE: 03/27/2022 21:45 INDICATION: Left lower quadrant abdominal pain. Left flank pain. TECHNIQUE: Computed tomography (CT) of the abdomen and pelvis was performed with 100 mL Omnipaque 350 intravenous contrast. Automated exposure control and iterative reconstruction technique were employe d. The dose-length product was 472.69 mGy-cm. COMPARISON: CT abdomen and pelvis 08/20/2021 FINDINGS: The visualized portions of the lung bases demonstrate mild atelectasis. No pleural effusion . The heart size is normal. No pericardial effusion. There is diffuse hepatic steatosis. The gallblad debra, spleen, pancreas, adrenal glands, and right kidney are normal. There is a 3 mm stone in proximal left ureter. There is a 3.3 cm cyst in left ovary. There is diverticulosis of the colon without evid ence of diverticulitis. There are no dilated loops of bowel. The appendix is normal. There are no pat hologically enlarged lymph nodes. There is no free intraperitoneal fluid. IMPRESSION: 1. 3 mm stone in proximal left ureter. No hydronephrosis. 2. 3.3 cm cyst in left ovary, likely a follicular cyst. Reviewed, dictated and finalized at location A.
--- NOTE | 2022-03-27 20:54 | ED.ABDPAIN ---
HPI - Abdominal Pain General Chief Complaint: Abdominal Pain Stated Complaint: flank pain Time Seen by Provider: 03/27/22 20:42 Source: patient Mode of arrival: ambulatory Limitations: no limitations History of Present Illness HPI narrative: Patient is a 42-year-old female who presents the ED with report of left flank pain, radiating around to her left lateral/left lower quadrant abdomen. Patient reports the pain began 3 days ago, but became worse tonight, prompting her presentation to the ED. Patient has history of numerous kidney stones, states pain feels similar, but does not feel like it has been traveling. She does also report diarrhea, urinary urgency, small volume urine, but denies dysuria, hematuria, rectal bleeding, nausea, vomiting, fevers. Patient sees Dr. Gonzalez and has an appointment next week with him. Related Data Home Medications Medication Instructions Recorded Confirmed acetaminophen 300 mg-codeine 30 mg tablet 08/20/21 tablet amoxicillin 875 mg-potassium tablet 08/20/21 clavulanate 125 mg tablet lisinopril 20 1 tablet PO BID 08/20/21 08/20/21 mg-hydrochlorothiazide 12.5 mg tablet Allergies Allergy/AdvReac Type Severity Reaction Status Date / Time tramadol AdvReac Mild VOMITING/HE Verified 03/27/22 21:20 ADACHE Review of Systems Review of Systems: CONSTITUTIONAL: Denies fever, chills, or sweats. CARDIOVASCULAR: Denies chest pain. RESPIRATORY: Denies dyspnea. GASTROINTESTINAL: Reports left lower quadrant abdominal pain, diarrhea. Denies constipation, rectal bleeding, nausea, vomiting. GENITOURINARY: Reports urinary frequency, small void urines. Denies dysuria or hematuria. MUSCULOSKELETAL: Reports left flank pain. All systems reviewed & are unremarkable except as noted in HPI and below PMFSH Past Medical History Medical History Cholecystitis Depression GERD (gastroesophageal reflux disease) HTN (hypertension) Multiple kidney stones Neuropathy Documented in past medical history, patient unsure Obesity induced hypertension Radial head fracture Seasonal allergies Smoker Surgical History Surgical History H/O: X3 H/O: hysterectomy Status post cystoscopy with ureteral stent placement Family History Family History Mother Diabetes mellitus Social History Social History Smoking packs per day: 0.5 Smoking cigarettes per day: 10.0 Years smoked: 25 Smoking pack-years: 12.50 Smoking status: Current every day smoker Tobacco type: cigarettes Alcohol intake: never Alcohol use details: Socially Substance use: never Substance use type: does not use Gender identity (if verbalized by the patient): Female Spiritual care concerns: No Exam Narrative: GENERAL: Well appearing, obese, non-toxic, in mild acute distress. HEAD: Normocephalic, atraumatic. NECK: Supple. No adenopathy, no masses. RESPIRATORY: Airway patent, respirations nonlabored. Clear to auscultation bilaterally, no rales, rhonchi, wheezing. CARDIOVASCULAR: Regular rate and rhythm without murmurs, rubs, or gallops. Peripheral pulses 2+ and equal bilaterally. ABDOMINAL: Soft, significant tenderness in LLQ, L lateral abdomen, L lower back/flank. Nondistended, no hepatosplenomegaly. Normoactive BS. MUSCULOSKELETAL: Moves all extremities. Strength/ROM intact without gross deformities. SKIN: Warm, dry, normal color. No rashes. NEURO: A&O X3. Speech clear. Cranial nerves II-XII grossly intact. Steady gait. No ataxic movements. PSYCHIATRIC: Appropriate mood and affect. Normal interaction. Course Vital Signs Vital signs: Vital Signs Temperature 98.1 F 03/27/22 20:34 Pulse Rate 70 03/27/22 20:34 Respiratory Rate 16 03/27/22 20:34 Blood Pressure 212/135 H 03/27/22 20:34 Pulse Oximetry 100 03/27
[2022-03-27] MEDS: SODIUM CHLORIDE 0.9% IV 1,000 ML 999 ML IV CONT (21:14)
[2022-03-27] MEDS: ONDANSETRON INJ 4 MG/2 ML VIAL IV PUSH (21:14)
[2022-03-27] MEDS: MORPHINE SULFATE (*CRX) 4 MG/ML INJ IV PUSH (21:14)
[2022-03-27 21:23] LABS: Basophils Absolute Auto 0.1 K/mm3 (0.0-0.1); Basophils Percent Auto 0.5 % (0.2-1.2); Eosinophils Absolute Auto 0.2 K/mm3 (0-0.3); Eosinophils Percent Auto 1.3 % (0-4.4); Hematocrit 44.3 % (37.0-47.0); Hemoglobin 15.5 g/dL (12.0-15.0); Immature Granulocyte Absolute 0.03 K/mm3 (0.00-0.031); Immature Granulocyte Percent A 0.3 % (0-0.5); Lymphocytes Absolute Auto 3.56 K/mm3 (0.9-3.2); Lymphocytes Percent Auto 30.9 % (18.3-44.2); Mean Corpuscular Hemoglobin 31.4 pg (26-34); Mean Corpuscular Volume 89.7 fl (80-100); Mean Platelet Volume 9.4 fl (7.4-10.4); Monocytes Absolute Auto 0.8 K/mm3 (0.1-0.6); Monocytes Percent Auto 6.8 % (2.6-8.5); Neutrophils Absolute Auto 6.9 K/mm3 (1.3-6.7); Neutrophils Percent Auto 60.2 % (45.5-73.1); Platelet Count Result 260 k/mm3 (150-375); Red Blood Count 4.94 M/mm3 (4.2-5.4); Red Cell Distribution Width 12.2 % (11.5-14.5); White Blood Count 11.5 K/mm3 (4.5-10.0)
[2022-03-27 21:25] LABS: Appearance Urine Cloudy (Clear); Bilirubin Urine 1+ (Negative); Blood Urine 3+ (Negative); Color Urine Yellow (Yellow); Glucose Urine UA Negative (Negative); Ketones Urine Negative (Negative); Leukocyte Esterase Ur Negative LEU/UL (Negative); Nitrate Urine Negative (Negative); Protein Urine 1+ mg/dL (Negative); Specific Grav Ur >= 1.030 (1.001-1.035); Urobilinogen Urine 0.2 mg/dL (<2.0); pH Urine 5.5 (5.0-9.0)
[2022-03-27 21:32] LABS: Bacteria Urine Trace /hpf; Calcium Oxalate Crystals Urine Present /hpf; Mucus Urine Heavy /lpf; RBC Urine >75 /hpf (0-2); Squamous Epithelial Cell Urine Occasional /hpf (Few)
[2022-03-27 21:33] LABS: Add Urine Microscopic? YES
[2022-03-27 21:34] LABS: Alanine Aminotransferase 59 U/L (6-35); Albumin Level 4.7 g/dL (3.5-5.1); Alkaline Phosphatase 76 U/L (38-126); Anion Gap 12 mmol/L (8-16); Aspartate Amino Transferase 46 U/L (14-36); Bilirubin,Total 0.4 mg/dL (0.2-1.3); Blood Urea Nitrogen 10 mg/dL (7-17); Calcium 8.8 mg/dL (8.4-10.2); Carbon Dioxide 22 mmol/L (22-30); Chloride 105 mmol/L (98-107); Estimated CRCL calculation 89 ml/min; Estimated Glomerular Filt Rate > 60; Glucose 92 mg/dL (65-110); Lipase 82 U/L (23-300); Potassium 3.6 mmol/L (3.4-5.0); Sodium 139 mmol/L (137-145)
[2022-03-27] MEDS: HYDROmorphone HCL INJ (*CRX) 1 MG/ML SYR 0.5 MG IV PUSH (22:54)
[2022-03-27] MEDS: lisinopriL 20 MG TABLET PO (22:55)
[2022-03-27] MEDS: hydroCHLOROthiazide 12.5 MG CAPSULE PO (23:10)
[2022-03-28] VITALS (8 sets, daily range): BP systolic 140–206; BP diastolic 98–115; PULSE 70–88; RESP 16–20; O2SAT 97–100
[2022-03-28] MEDS: hydrALAZINE HCL 20 MG/ML VIAL 10 MG IV PUSH (00:20)
--- NOTE | 2022-03-28 00:47 | PC.NURSE ---
Talked to [place] in lab at 00:47 to add on UC
[2022-03-28] MEDS: HYDROmorphone HCL INJ (*CRX) 1 MG/ML SYR IV PUSH (01:12)
[2022-03-28] MEDS: HYDROcodone/acetaminophen (*CRX) 5-325 MG TABLET 1 TAB PO (02:41)
[2022-03-28] MEDS: TAMSULOSIN HCL 0.4 MG CAPSULE PO (02:42)
== END 2022-03-28 03:14 | disposition home or self-care (01) ==
PROVIDERS: Physician Assistant; Emergency Provider Emergency Medicine; PCP Internal Medicine
DX: N20.1 Calculus of ureter (principal); N83.202 Unspecified ovarian cyst, left side; I10 Essential (primary) hypertension; K21.9 Gastro-esophageal reflux disease without esophagitis; E66.9 Obesity, unspecified; Z68.31 Body mass index [BMI] 31.0-31.9, adult; Z87.442 Personal history of urinary calculi; Z90.710 Acquired absence of both cervix and uterus; F17.210 Nicotine dependence, cigarettes, uncomplicated
CPT/HCPCS: 36415; 74018; 74177; 76830; 76856; 80053; 81001; 83690; 85025; 87086; 96361; 96365; 96374; 96375; 99284; A9270; J0131; J0360; J1170; J2270; J2405; J7030; Q9967

== ENCOUNTER 2022-03-30 00:44 | Day surgery (SDC) | payer OTHER, MEDICAID, SELFPAY ==
[2022-03-29 15:01] VITALS: BMI 31.2
--- NOTE | 2022-03-29 15:18 | PC.NURSE ---
Report to the Outpatient Waiting Room, entrance under the green pavilion located off [facility], at time _1300_ on date __03/30/22__. OR Time: __1500__. - You and your visitor will be asked to self-screen and do not enter if you have any COVID symptoms. - Only one visitor and NO children visitors are allowed at this time. - The patient visitor is requested to leave or wait in car when not with patient due to restrictions. - A mask is required within the hospital. Patients may have clear liquids (water, carbonated beverages, clear teas, apple juice) until 3 hours prior to surgery with a maximum of 20 ounces. - No food from midnight until time of surgery - Take the following medications with a SIP of water the morning of surgery: __N/A Medications to discontinue per physician N/A Date to take last dose Please no make-up, nail italian, hairspray, perfume, deodorant, or body powder the day of surgery. No jewelry (including any body piercings) or valuables the day of surgery, leave them at home. Please take a shower or bath the night before, or the morning of, surgery with an antibacterial soap. Wear comfortable, loose fitting clothing. - Jewelry must be removed prior to entering the operating room. Rings and piercings that are not removed may be cut off. - The hospital will not accept responsibility for valuables. - Please leave all valuables, including medications, at home the day of surgery. If you are going home after surgery, a licensed wedding transportation driver must drive you home. - NO public transportation without another adult. - We recommend that an adult stay with you for 24 hours following discharge. - We also recommend that you do not drive, make important decision, drink alcoholic beverages, or take any drugs that were not prescribed by your health care provider for at least 24 hours after your discharge time. Follow any additional instructions given to you from your surgeon. If you or anyone in your household have experienced Covid symptoms in the past week, please notify your surgeon or the nurse liaison at the phone number below for possible testing. Telephone instructions given to __TITA and asked if any additional questions and then verbalized understanding. Patient advised to call surgeon office or pre surgery nurse liaison [phone] if any additional questions.
[2022-03-30] VITALS (10 sets, daily range): BP systolic 158–186; BP diastolic 102–124; PULSE 64–87; RESP 10–16; TEMP 36.9–37; O2SAT 92–100
--- NOTE | ~2022-03-30 | XR_ITS ---
EXAMINATION: XR retrograde pyelo w/stent LT DATE: 03/30/2022 14:55 INDICATION: Left ureteral stent placement. TECHNIQUE: Fluoroscopic images from a left internal ureteral stent placement are submitted for review . 29 seconds of fluoroscopy time. 7 fluoroscopic images. FINDINGS: There is a left double-J internal ureteral stent projecting in expected position, with proximal Ellsworth loop at the level of the renal pelvis and distal loop in the pelvis within the bladder lumen. IMPRESSION: 1. Left internal ureteral stent placement. Please refer to real-time procedural findings for detail s. Reviewed, dictated and finalized at location B. IMPRESSION: 1. Left internal ureteral stent placement. Please refer to real-time procedur al findings for details.
--- NOTE | 2022-03-30 12:46 | WPDHPUPDATE1 ---
History and Physical Update Update Date/Time: 03/30/22 12:46 History and Physical has been reviewed, including an updated exam of the patient. There are NO changes in the patient's condition. Risks, benefits, and alternatives have been discussed and questions answered. Patient agrees to proceed with procedure. Proceed with cystoscopy, left retrograde pyelogram, left ureteroscopy with stone extraction, left ureteral stent placement, possible laser
--- NOTE | 2022-03-30 13:35 | WPDANESEPPF ---
Anes - Initial Pre Proc Eval Procedure: Operation Date: 03/30/22 15:00 Proposed Procedures p Cystoscopy, Left Ureteroscopy with Stone Extraction, Left Retrograde Pyelogram, Left Stent Placement, Possible Holmium Laser Procedure - Drew Alejandro MD Date/Time: 03/30/22 13:35 Surgeon: Drew Alejandro MD Pre Op Diagnosis: left ureteral stone Patient Data Age: 42 Gender: F Height: 1.6 m Weight: 83.25 kg Allergies Allergy/AdvReac Type Severity Reaction Status Date / Time tramadol AdvReac Mild VOMITING/HE Verified 03/30/22 13:28 ADACHE Home Medications Medication Instructions Recorded Confirmed Type lisinopril 20 1 tablet PO BID 08/20/21 03/30/22 History mg-hydrochlorothiazide 12.5 mg tablet Patient hx anesthesia problems: none Family hx anesthesia problems: none Results Review: All pre-operative results and documents have been reviewed as part of the pre-operative evaluation. [facility] Past Medical History Medical History Cholecystitis Depression GERD (gastroesophageal reflux disease) HTN (hypertension) Multiple kidney stones Neuropathy Documented in past medical history, patient unsure Obesity induced hypertension Radial head fracture Seasonal allergies Smoker Surgical History Surgical History H/O: X3 H/O: hysterectomy Status post cystoscopy with ureteral stent placement Family History Family History Mother Diabetes mellitus Social History Social History Smoking packs per day: 0.5 Smoking cigarettes per day: 10.0 Years smoked: 25 Smoking pack-years: 12.50 Smoking status: Light tobacco smoker Tobacco type: cigarettes Alcohol intake: never Alcohol use details: Socially Substance use: never Substance use type: does not use Living arrangements: with family Gender identity (if verbalized by the patient): Female Spiritual care concerns: No Anes - Eval Final PreProcedure Day of Procedure 03/30/22 13:35 Patient weight: obese Heart: regular rate and rhythm Lungs: clear to auscultation Airway: Mallampati scale class II Neurological: alert and oriented Last oral intake: >/= 8 hours ASA classification: II Emergent: no Anesthetic plan: proceed Anesthesia type and monitoring: general LMA and standard monitoring Results Review: All pre-operative results and documents have been reviewed as part of the pre-operative evaluation. Informed Consent: The patient's anesthetic plan and its attendant risks and benefits were discussed with the patient/family/POA. Questions were solicited and answers provided to the satisfaction of the patient/family/POA.
[2022-03-30] MEDS: fentaNYL CITRATE INJ (*CRX) 100 MCG/2 ML VIAL 50 MCG IV PUSH (13:39)
--- NOTE | 2022-03-30 13:47 | SUR.PREOP ---
dr hernandez aware elevated bp also pain to left flank 02/18,ordered pain med and given.
[2022-03-30] MEDS: LACTATED RINGERS 1,000 ML 30 ML IV CONT ×2 (13:49→15:14)
--- NOTE | 2022-03-30 13:55 | SUR.PREOP ---
dr hernandez aware of current bp 171/108 after 50mcg fentanyl and pain 12/19. no further orders.
[2022-03-30] MEDS: ceFAZolin 2 GM/D5W 50 ML 2 GM/50 ML BAG IVPB (14:23)
[2022-03-30] MEDS: LIDOCAINE HCL 2% GEL UROJET 10 ML PKG MUCOUS MEM (14:24)
--- NOTE | 2022-03-30 14:28 | SUR.OPER ---
LEFT URETER STENT 4.8FR 2025-01-15 EXP
--- NOTE | 2022-03-30 14:34 | W.PM.PROC2 ---
Procedure Note - Detailed Date of Procedure 03/30/22 Pre-op Diagnosis left ureteral stone Post-op Diagnosis Same Procedure Performed Cystoscopy, left retrograde pyelogram, left ureteroscopy with stone extraction, left ureteral stent placement 4.8 Faroese contour Surgeon Drew Alejandro MD Anesthesia General Description of Procedure Patient is taken to the operative suite correctly identified. Once anesthesia was obtained she was placed in the dorsal lithotomy position and prepped and draped usual sterile fashion. Twenty-two Faroese scope was inserted into the bladder. There were no tumors noted. The left orifice was cannulated with a guidewire. We dilated with an 8/10 dilator. The flexible ureteral scope was then inserted into left ureteral orifice. There were no ureteral stones as it may have been pushed back into the kidney. Inspection of the kidney reveals a small 3 mm stone. Using escape basket retrieved it and sent for analysis. Reinspection revealed no residual stones. Pyelogram was then performed. 4.8 Faroese contour stent was placed with proximal end coiled in the left renal pelvis and the distal in the bladder. Bladder was drained. 2% viscous lidocaine was inserted urethra patient is taken recovery stable condition. I should state that a string was left attached to the stent. Patient may removed that stent on Saturday if does not tolerated but would prefer to have her remove it on Saturday. Drains Yes Packing No Pathology Yes Complications No immediate complications Condition Stable Disposition PACU
[2022-03-30] MEDS: fentaNYL CITRATE INJ (*CRX) 100 MCG/2 ML VIAL 25 MCG IV PUSH ×6 (14:52→15:36)
[2022-03-30] MEDS: ONDANSETRON INJ 4 MG/2 ML VIAL IV PUSH (14:57)
[2022-03-30] MEDS: LABETALOL HCL INJ 100 MG/20 ML VIAL 10 MG IV PUSH (14:58)
[2022-03-30] MEDS: hydrALAZINE HCL 20 MG/ML VIAL 10 MG IV PUSH (15:35)
--- NOTE | 2022-03-30 16:45 | SUR.PHASEII ---
1649- Notified Dr. Sheets patient's BP remains elevated 168/[address] Sheets can discharge patient home. Instruct patient to take home dose of lisinopril.
== END 2022-03-30 17:01 | disposition home or self-care (01) ==
PROVIDERS: PCP Internal Medicine; Visit Provider Urology
PROC: (CPT 52352; principal; 2022-03-30 15:00)
DX: N20.1 Calculus of ureter (principal); R10.9 Unspecified abdominal pain; N39.0 Urinary tract infection, site not specified; F32.A Depression, unspecified; K21.9 Gastro-esophageal reflux disease without esophagitis; I10 Essential (primary) hypertension; G62.9 Polyneuropathy, unspecified; F17.210 Nicotine dependence, cigarettes, uncomplicated; E66.9 Obesity, unspecified; Z68.32 Body mass index [BMI] 32.0-32.9, adult
CPT/HCPCS: 52332; 52352; 74420; 82365; 88300; C1769; C2617; J0360; J0690; J1100; J2250; J2405; J2704; J3010; J7120; Q9966

== ENCOUNTER 2022-05-18 18:54 | Emergency (ER) | payer OTHER, MEDICAID, SELFPAY ==
[2022-05-18] VITALS (7 sets, daily range): BP systolic 229–239; BP diastolic 119–144; PULSE 72–101; RESP 13–23; TEMP 36.4; O2SAT 94–100
--- NOTE | ~2022-05-18 | XR_ITS ---
XR abdomen/kub 1V 05/18/2022 20:16 INDICATION: Right flank pain TECHNIQUE: KUB COMPARISON: Comparison to multiple prior studies sequentially, with oldest reviewed study dated 11/28. FINDINGS: Bowel gas pattern is normal. There is no evidence of free air, mass, organomegaly, ascites or obstruction. No abnormal calculi are seen. The bones appear intact. IMPRESSION: 1: No acute abdominal abnormality identified. Reviewed, dictated and finalized at location A.
--- NOTE | ~2022-05-18 | CT_ITS ---
EXAMINATION: CT abdomen pelvis wo con DATE: 05/18/2022 20:24 INDICATION: TECHNIQUE: Computed tomography (CT) of the abdomen and pelvis was performed without intravenous contr ast. The dose-length product was 266.16 mGy-cm. Automated exposure control and iterative reconstructi on technique were employed. COMPARISON: CT dated 03/27/2022 FINDINGS: Lung bases are unremarkable. Heart size is normal. The liver, spleen, pancreas, adrenal gla nds and kidneys are unremarkable. Punctate 2 mm nonobstructing left renal stone. No right renal stone s. No hydronephrosis. Stable appearance to pelvic phleboliths. Bladder is decompressed. No abnormal p elvic masses or fluid collections.. Normal appendix. No evidence for aortic aneurysm. No lymphadenopa thy. No free air or free fluid. Nonobstructive bowel pattern. No evidence for hernia. IMPRESSION: 1. Punctate 2 mm nonobstructing left renal stone. Reviewed, dictated and finalized at location A.
--- NOTE | 2022-05-18 19:20 | ECG_ITS ---
Measurements Intervals [place] Rate: 76 P: 14 MO: 171 QRS: 23 QRSD: 82 T: 27 QT: 389 QTc: 437 Interpretive Statements SINUS RHYTHM NONSPECIFIC ST ABNORMALITY COMPARED TO ECG 08/20/2021 14:39:27 NO SIGNIFICANT DIFFERENCE Electronically Signed On 05-19-2022 7:55:18 CDT by Damian Begum M.D.
--- NOTE | 2022-05-18 19:22 | ED.BACK ---
HPI - Back Pain/Injury General Chief Complaint: Back Pain/Injury Stated Complaint: right flank pain Time Seen by Provider: 05/18/22 19:09 Source: patient, RN notes reviewed and old records reviewed Mode of arrival: ambulatory Limitations: no limitations History of Present Illness HPI Narrative: This is a 42 year old female with history of hypertension and kidney stones who presents for evaluation of right flank pain. She developed pain approximately 4 hours ago and it has been constant. She reports pain is radiating around to her right side. She has not taken any medication for her pain. She reports nausea without vomiting. She denies fever or chills. She also reports she had some hematuria. Related Data Home Medications Medication Instructions Recorded Confirmed lisinopril 20 1 tablet PO BID 08/20/21 04/04/22 mg-hydrochlorothiazide 12.5 mg tablet multivitamin 1 tablet PO DAILY 04/04/22 04/04/22 omeprazole 20 mg capsule,delayed 20 mg PO DAILY 04/04/22 04/04/22 release Allergies Allergy/AdvReac Type Severity Reaction Status Date / Time ketorolac [From Toradol] Allergy Headache Verified 04/04/22 08:14 tramadol AdvReac Mild VOMITING/HE Verified 04/04/22 08:14 ADACHE Review of Systems Review of Systems: All systems reviewed & are unremarkable except as noted in HPI and below Constitutional: Constitutional: Denies chills, Denies fatigue and Denies fever(s) Cardiovascular: Cardiovascular: Denies chest pain and Denies radiating jaw, neck or arm pain Respiratory: Respiratory: Denies chest congestion, Denies cough and Denies dyspnea Gastrointestinal: Gastrointestinal: Reports abdominal pain, Reports nausea and Denies vomiting Genitourinary: Genitourinary: Reports hematuria and Reports flank pain Musculoskeletal: Musculoskeletal: Reports back pain [facility] Past Medical History Medical History Cholecystitis Depression GERD (gastroesophageal reflux disease) HTN (hypertension) Multiple kidney stones Neuropathy Documented in past medical history, patient unsure Obesity induced hypertension Radial head fracture Seasonal allergies Smoker Surgical History Surgical History H/O elbow surgery Screws in left elbow 2012 H/O: X3, 2001, 2002, 2009 H/O: hysterectomy 2016 Status post cystoscopy with ureteral stent placement Family History Family History Mother Diabetes mellitus Depression Alcoholism Father Hypertension Sibling Heart disease Son Asthma Grandparent Diabetes mellitus Cerebrovascular accident Social History Social History Smoking packs per day: 0.5 Smoking cigarettes per day: 10.0 Years smoked: 25 Smoking pack-years: 12.50 Smoking status: Current every day smoker Tobacco type: cigarettes Alcohol intake: never Alcohol use details: Socially Substance use: never Substance use type: does not use Gender identity (if verbalized by the patient): Female Sexual Orientation (if Verbalized by the Patient): Straight or Heterosexual Spiritual care concerns: No Exam Const: General: no acute distress and alert Nutritional Appearance: well nourished Orientation/consciousness: patient oriented x3 Limitations: no limitations HENMT: Head: normal to inspection Mouth: Yes Normal oral and palatal mucosa present Eyes: EOM: EOMs intact bilaterally Chest: Chest palpation & inspection: normal inspection of the chest Resp: Effort & Inspection: normal respiratory effort Auscultation: clear to auscultation bilaterally Cardio: Rate: regular rate Rhythm: regular rhythm Heart sounds: no murmurs GI: GI Palp: Yes Soft to palpation, No Tenderness to palpation present (GI), No Guarding due to palpation present (GI) and No Rigid due to palpation Auscultation: no
[2022-05-18] MEDS: HYDROmorphone HCL INJ (*CRX) 1 MG/ML SYR IV PUSH (19:52)
[2022-05-18] MEDS: ONDANSETRON INJ 4 MG/2 ML VIAL IV PUSH (19:52)
[2022-05-18 19:59] LABS: Basophils Percent Auto 0.5 % (0.2-1.2); Eosinophils Absolute Auto 0.1 K/mm3 (0-0.3); Eosinophils Percent Auto 1.6 % (0-4.4); Hematocrit 41.7 % (37.0-47.0); Hemoglobin 14.7 g/dL (12.0-15.0); Immature Granulocyte Absolute 0.03 K/mm3 (0.00-0.031); Immature Granulocyte Percent A 0.3 % (0-0.5); Lymphocytes Absolute Auto 3.09 K/mm3 (0.9-3.2); Lymphocytes Percent Auto 34.9 % (18.3-44.2); Mean Corpuscular HGB Conc 35.3 g/dl (32-36); Mean Corpuscular Hemoglobin 30.9 pg (26-34); Mean Corpuscular Volume 87.8 fl (80-100); Mean Platelet Volume 9.7 fl (7.4-10.4); Monocytes Absolute Auto 0.9 K/mm3 (0.1-0.6); Monocytes Percent Auto 10.3 % (2.6-8.5); Neutrophils Absolute Auto 4.7 K/mm3 (1.3-6.7); Neutrophils Percent Auto 52.4 % (45.5-73.1); Platelet Count Result 264 k/mm3 (150-375); Red Blood Count 4.75 M/mm3 (4.2-5.4); White Blood Count 8.9 K/mm3 (4.5-10.0)
[2022-05-18 20:06] LABS: Add Urine Microscopic? YES; Appearance Urine Cloudy (Clear); Bacteria Urine Trace /hpf; Bilirubin Urine Negative (Negative); Blood Urine Negative (Negative); Calcium Oxalate Crystals Urine Present /hpf; Color Urine Yellow (Yellow); Glucose Urine UA Negative (Negative); Ketones Urine Trace mg/dL (Negative); Leukocyte Esterase Ur Negative LEU/UL (Negative); Mucus Urine Few /lpf; Nitrate Urine Negative (Negative); Protein Urine Negative (Negative); Squamous Epithelial Cell Urine Rare /hpf (Few); Urobilinogen Urine Negative mg/dL (<2.0); WBC Urine 0-3 /hpf
[2022-05-18 20:08] LABS: Specific Grav Ur 1.032 (1.001-1.035)
[2022-05-18 20:09] LABS: INR 1.2; Prothrombin Time 14.6 Seconds (11.1-14.7)
[2022-05-18 20:10] LABS: Partial Thromboplastin Time 27.6 SECONDS (22.3-36.8)
[2022-05-18 20:11] LABS: Alanine Aminotransferase 43 U/L (6-35); Albumin Level 4.4 g/dL (3.5-5.1); Alkaline Phosphatase 78 U/L (38-126); Anion Gap 10 mmol/L (8-16); Aspartate Amino Transferase 34 U/L (14-36); Bilirubin,Total 0.2 mg/dL (0.2-1.3); Blood Urea Nitrogen 13 mg/dL (7-17); Calcium 8.9 mg/dL (8.4-10.2); Carbon Dioxide 22 mmol/L (22-30); Chloride 107 mmol/L (98-107); Estimated CRCL calculation 103 ml/min; Estimated Glomerular Filt Rate > 60; Glucose 83 mg/dL (65-110); Potassium 3.5 mmol/L (3.4-5.0); Sodium 139 mmol/L (137-145)
== END 2022-05-18 22:50 | disposition home or self-care (01) ==
PROVIDERS: Emergency Provider General Practice; PCP Internal Medicine
DX: N20.0 Calculus of kidney (principal); R10.9 Unspecified abdominal pain; I10 Essential (primary) hypertension; K21.9 Gastro-esophageal reflux disease without esophagitis; F32.A Depression, unspecified; E66.9 Obesity, unspecified; Z68.31 Body mass index [BMI] 31.0-31.9, adult; F17.210 Nicotine dependence, cigarettes, uncomplicated
CPT/HCPCS: 36415; 74018; 74176; 80053; 81001; 85025; 85610; 85730; 93005; 96374; 96375; 99284; J1170; J2405

== ENCOUNTER 2022-06-23 03:18 | Emergency (ER) | payer OTHER, MEDICAID, SELFPAY ==
[2022-06-23 03:23] VITALS: BP 187/142; PULSE 113; RESP 18; TEMP 36.6; O2SAT 98
[2022-06-23 04:39] LABS: Basophils Percent Auto 0.4 % (0.2-1.2); Eosinophils Absolute Auto 0.1 K/mm3 (0-0.3); Eosinophils Percent Auto 0.7 % (0-4.4); Hemoglobin 14.5 g/dL (12.0-15.0); Immature Granulocyte Absolute 0.02 K/mm3 (0.00-0.031); Immature Granulocyte Percent A 0.2 % (0-0.5); Lymphocytes Absolute Auto 2.19 K/mm3 (0.9-3.2); Lymphocytes Percent Auto 21.3 % (18.3-44.2); Mean Corpuscular HGB Conc 35.4 g/dl (32-36); Mean Corpuscular Hemoglobin 31.2 pg (26-34); Mean Corpuscular Volume 88.2 fl (80-100); Mean Platelet Volume 9.7 fl (7.4-10.4); Monocytes Absolute Auto 0.8 K/mm3 (0.1-0.6); Monocytes Percent Auto 8.1 % (2.6-8.5); Neutrophils Absolute Auto 7.2 K/mm3 (1.3-6.7); Neutrophils Percent Auto 69.3 % (45.5-73.1); Platelet Count Result 264 k/mm3 (150-375); Red Blood Count 4.65 M/mm3 (4.2-5.4); Red Cell Distribution Width 12.6 % (11.5-14.5); White Blood Count 10.3 K/mm3 (4.5-10.0)
[2022-06-23 04:47] LABS: Appearance Urine Clear (Clear); Bilirubin Urine 1+ (Negative); Blood Urine Negative (Negative); Color Urine Yellow (Yellow); Glucose Urine UA Negative (Negative); Ketones Urine 1+ mg/dL (Negative); Leukocyte Esterase Ur Negative LEU/UL (Negative); Nitrate Urine Negative (Negative); Protein Urine 1+ mg/dL (Negative); Specific Grav Ur 1.025 (1.001-1.035); Urobilinogen Urine 0.2 mg/dL (<2.0); pH Urine 5.5 (5.0-9.0)
[2022-06-23 04:50] LABS: Calcium Oxalate Crystals Urine Present /hpf; Mucus Urine Moderate /lpf; RBC Urine 0-2 /hpf (0-2); Squamous Epithelial Cell Urine Moderate /hpf (Few)
[2022-06-23 04:51] LABS: Add Urine Microscopic? YES
[2022-06-23 04:53] LABS: Alanine Aminotransferase 30 U/L (6-35); Albumin Level 4.4 g/dL (3.5-5.1); Alkaline Phosphatase 80 U/L (38-126); Anion Gap 10 mmol/L (8-16); Aspartate Amino Transferase 31 U/L (14-36); Bilirubin,Total 0.4 mg/dL (0.2-1.3); Blood Urea Nitrogen 14 mg/dL (7-17); Calcium 9.3 mg/dL (8.4-10.2); Carbon Dioxide 22 mmol/L (22-30); Chloride 105 mmol/L (98-107); Creatine Kinase 66 U/L (30-135); Estimated CRCL calculation 102 ml/min; Estimated Glomerular Filt Rate > 60; Glucose 104 mg/dL (65-110); Magnesium 1.9 mg/dL (1.6-2.3); Potassium 3.6 mmol/L (3.4-5.0); Sodium 137 mmol/L (137-145)
[2022-06-23 05:15] LABS: Influenza A QL RT-PCR Negative (Negative); Influenza B QL RT-PCR Negative (Negative); SARS-CoV-2 RNA PCR Negative
--- NOTE | 2022-06-23 05:17 | ED.GENADULT ---
HPI - General Adult General Chief complaint: Unspecified Stated complaint: bilateral leg/ arm pain Time Seen by Provider: 06/23/22 04:01 History of Present Illness HPI narrative: 42-year-old female presented to the emergency department for evaluation of numbness to her right arm for 4 months and decree sensation to her left leg for the last 4 days. Patient states that she began having decrease in station of the left leg over the last few days. Patient states it feels like the leg is asleep. Patient denies any falls or injuries. Patient does have history of previous back surgery. Patient denies any recent falls or injuries. Patient denies any loss of bowel or bladder control. Patient denies any changes in medications other than stopping her hydrochlorothiazide. Patient denies any recent immunizations. Patient denies any prior history of Asya Murdock. Related Data Home Medications Medication Instructions Recorded Confirmed lisinopril 20 1 tablet PO BID 08/20/21 04/04/22 mg-hydrochlorothiazide 12.5 mg tablet multivitamin 1 tablet PO DAILY 04/04/22 04/04/22 omeprazole 20 mg capsule,delayed 20 mg PO DAILY 04/04/22 04/04/22 release Allergies Allergy/AdvReac Type Severity Reaction Status Date / Time ketorolac [From Toradol] Allergy Headache Verified 06/23/22 05:51 tramadol AdvReac Mild VOMITING/HE Verified 06/23/22 05:51 ADACHE Review of Systems Review of Systems: CONSTITUTIONAL: Denies fever, chills, or sweats. EYES: Denies visual changes, redness, or discharge. ENT: Denies rhinorrhea, congestion, sore throat, or otalgia. CARDIOVASCULAR: Denies chest pain, palpitations, or edema. RESPIRATORY: Denies cough or dyspnea. GASTROINTESTINAL: Denies abdominal pain, nausea, vomiting, or diarrhea. GENITOURINARY: Denies dysuria or hematuria. SKIN: Denies rash or itching. MUSCULOSKELETAL: Denies back pain, joint pain, or myalgia. NEUROLOGIC: See HPI [facility] Past Medical History Medical History Cholecystitis Depression GERD (gastroesophageal reflux disease) HTN (hypertension) Multiple kidney stones Neuropathy Documented in past medical history, patient unsure Obesity induced hypertension Radial head fracture Seasonal allergies Smoker Surgical History Surgical History H/O elbow surgery Screws in left elbow 2012 H/O: X3, 2001, 2001, 2009 H/O: hysterectomy 2016 Status post cystoscopy with ureteral stent placement Family History Family History Mother Diabetes mellitus Depression Alcoholism Father Hypertension Sibling Heart disease Son Asthma Grandparent Diabetes mellitus Cerebrovascular accident Social History Social History Smoking packs per day: 0.5 Smoking cigarettes per day: 10.0 Years smoked: 25 Smoking pack-years: 12.50 Smoking status: Current every day smoker Tobacco type: cigarettes Alcohol intake: never Alcohol use details: Socially Substance use: never Substance use type: does not use Gender identity (if verbalized by the patient): Female Sexual Orientation (if Verbalized by the Patient): Straight or Heterosexual Spiritual care concerns: No Exam Narrative: APPEARANCE: Well appearing, no pain, no distress, well-nourished. HEAD: normocephalic, atraumatic. EYES: PERRLA/EOMI, conjunctivae clear. NOSE: Normal no drainage NECK: Supple. No adenopathy, no masses. RESPIRATORY: Airway patent, respirations nonlabored. Clear to auscultation bilaterally, no rales, rhonchi, wheezing. CARDIOVASCULAR: Regular rate and rhythm without murmurs rubs or gallops. ABDOMINAL: Soft, nontender, nondistended, normal bowel sounds MUSCULOSKELETAL: Moves all extremities. Strength/ROM intact, No edema, No calf tenderness. NEURO: Alert. Cranial nerves II through XII intact. Normal stren
[2022-06-23 05:51] VITALS: BP 210/108; PULSE 79; RESP 18; O2SAT 99
[2022-06-23] MEDS: lisinopriL 20 MG TABLET PO (05:54)
[2022-06-23] MEDS: IBUPROFEN 600 MG TABLET PO (05:59)
--- NOTE | 2022-06-23 06:05 | PC.NURSE ---
Talked to Connie in lab to add on UC at 06:04
[2022-06-23 06:32] VITALS: BP 198/110
== END 2022-06-23 06:33 | disposition home or self-care (01) ==
PROVIDERS: Emergency Provider Emergency Medicine; PCP Internal Medicine
DX: R20.0 Anesthesia of skin (principal); I10 Essential (primary) hypertension; F17.210 Nicotine dependence, cigarettes, uncomplicated; Z20.822 Contact with and (suspected) exposure to COVID-19
CPT/HCPCS: 36415; 80053; 81001; 82550; 83735; 84443; 85025; 87086; 87088; 87636; 99283; A9270

== ENCOUNTER 2022-08-19 21:11 | Emergency (ER) | payer OTHER, MEDICAID, SELFPAY ==
--- NOTE | ~2022-08-19 | XR_ITS ---
EXAMINATION: XR abdomen/kub 1V DATE: 08/20/2022 01:24 INDICATION: Right kidney stone. TECHNIQUE: A supine view of the abdomen was obtained. COMPARISON: CT abdomen and pelvis 05/18/2022 FINDINGS: There are no dilated loops of bowel. There are phleboliths in the pelvis. IMPRESSION: 1. No visible urolithiasis. Reviewed, dictated and finalized at location A. 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 No visible urolithiasis.
[2022-08-19 21:41] VITALS: BP 197/136; PULSE 120; RESP 20; TEMP 36.7; O2SAT 99
[2022-08-19 22:15] LABS: Add Urine Microscopic? NO; Appearance Urine Clear (Clear); Basophils Absolute Auto 0.1 K/mm3 (0.0-0.1); Basophils Percent Auto 0.5 % (0.2-1.2); Bilirubin Urine Negative (Negative); Blood Urine Negative (Negative); Color Urine Yellow (Yellow); Eosinophils Absolute Auto 0.1 K/mm3 (0-0.3); Glucose Urine UA Negative (Negative); Hematocrit 44.3 % (37.0-47.0); Hemoglobin 15.4 g/dL (12.0-15.0); Immature Granulocyte Absolute 0.03 K/mm3 (0.00-0.031); Immature Granulocyte Percent A 0.3 % (0-0.5); Ketones Urine Negative (Negative); Leukocyte Esterase Ur Negative LEU/UL (Negative); Mean Corpuscular HGB Conc 34.8 g/dl (32-36); Mean Corpuscular Hemoglobin 31.6 pg (26-34); Mean Platelet Volume 9.3 fl (7.4-10.4); Monocytes Percent Auto 8.8 % (2.6-8.5); Neutrophils Absolute Auto 6.7 K/mm3 (1.3-6.7); Neutrophils Percent Auto 62.4 % (45.5-73.1); Nitrate Urine Negative (Negative); Platelet Count Result 303 k/mm3 (150-375); Protein Urine Negative (Negative); Red Blood Count 4.87 M/mm3 (4.2-5.4); Red Cell Distribution Width 12.3 % (11.5-14.5); Specific Grav Ur 1.015 (1.001-1.035); Urobilinogen Urine 0.2 mg/dL (<2.0); White Blood Count 10.8 K/mm3 (4.5-10.0); pH Urine 7.5 (5.0-9.0)
[2022-08-19 22:21] LABS: Mucus Urine Rare /lpf; RBC Urine 0-2 /hpf (0-2); Squamous Epithelial Cell Urine Rare /hpf (Few); WBC Urine 0-3 /hpf
[2022-08-19 22:24] LABS: Alanine Aminotransferase 36 U/L (6-35); Albumin Level 4.7 g/dL (3.5-5.1); Alkaline Phosphatase 84 U/L (38-126); Anion Gap 9 mmol/L (8-16); Aspartate Amino Transferase 34 U/L (14-36); Bilirubin,Total 0.3 mg/dL (0.2-1.3); Blood Urea Nitrogen 13 mg/dL (7-17); Calcium 9.3 mg/dL (8.4-10.2); Carbon Dioxide 25 mmol/L (22-30); Chloride 103 mmol/L (98-107); Estimated CRCL calculation 123 ml/min; Estimated Glomerular Filt Rate > 60; Glucose 100 mg/dL (65-110); Potassium 3.8 mmol/L (3.4-5.0); Sodium 137 mmol/L (137-145)
--- NOTE | 2022-08-20 00:17 | ECG_ITS ---
Measurements Intervals [place] Rate: 80 P: 2 WV: 187 QRS: 10 QRSD: 97 T: 26 QT: 382 QTc: 442 Interpretive Statements SINUS RHYTHM DELAYED PRECORDIAL R/S TRANSITION NONSPECIFIC T-WAVE ABNORMALITY- INF/LAT LEADS BORDERLINE ECG COMPARED TO ECG 05/18/2022 19:35:55 T-WAVE ABNORMALITY NOW PRESENT Electronically Signed On 08-20-2022 6:39:16 [employer] by Leonel Méndez D.O.
[2022-08-20] MEDS: SODIUM CHLORIDE 0.9% IV 2,000 ML 999 ML IV CONT (00:51)
[2022-08-20] MEDS: HYDROmorphone HCL INJ (*CRX) 1 MG/ML SYR 0.5 MG IV PUSH (00:51)
[2022-08-20] MEDS: ONDANSETRON INJ 4 MG/2 ML VIAL IV PUSH (00:53)
[2022-08-20 00:57] LABS: Basophils Absolute Auto 0.1 K/mm3 (0.0-0.1); Basophils Percent Auto 0.6 % (0.2-1.2); Eosinophils Absolute Auto 0.1 K/mm3 (0-0.3); Eosinophils Percent Auto 1.1 % (0-4.4); Hematocrit 44.6 % (37.0-47.0); Hemoglobin 15.4 g/dL (12.0-15.0); Immature Granulocyte Absolute 0.04 K/mm3 (0.00-0.031); Immature Granulocyte Percent A 0.4 % (0-0.5); Lymphocytes Percent Auto 27.3 % (18.3-44.2); Mean Corpuscular HGB Conc 34.5 g/dl (32-36); Mean Corpuscular Hemoglobin 31.2 pg (26-34); Mean Corpuscular Volume 90.5 fl (80-100); Mean Platelet Volume 9.1 fl (7.4-10.4); Monocytes Percent Auto 8.7 % (2.6-8.5); Neutrophils Absolute Auto 6.8 K/mm3 (1.3-6.7); Neutrophils Percent Auto 61.9 % (45.5-73.1); Platelet Count Result 298 k/mm3 (150-375); Red Blood Count 4.93 M/mm3 (4.2-5.4); Red Cell Distribution Width 12.4 % (11.5-14.5)
[2022-08-20 01:13] LABS: Anion Gap 11 mmol/L (8-16); Blood Urea Nitrogen 14 mg/dL (7-17); Calcium 9.2 mg/dL (8.4-10.2); Carbon Dioxide 25 mmol/L (22-30); Chloride 105 mmol/L (98-107); Estimated CRCL calculation 123 ml/min; Estimated Glomerular Filt Rate > 60; Glucose 99 mg/dL (65-110); Potassium 3.7 mmol/L (3.4-5.0); Sodium 141 mmol/L (137-145)
--- NOTE | 2022-08-20 01:37 | ED.GENADULT ---
HPI - General Adult General Chief complaint: Urogenital-Female Stated complaint: right flank pain Time Seen by Provider: 08/19/22 23:54 History of Present Illness HPI narrative: this is a 42-year-old female presenting ED with right flank pain. The patient was seen at [facility] for pyelonephritis and kidney stones. She was admitted and treated with IV antibiotics and discharged. This morning she started to have right lower back pain and nausea and vomiting. She did take [place] during that time which controlled her pain but she is concerned that she has infected kidney stone. she was not given Zofran. She is almost out of [place]. She came to our emergency department [facility] because we are closer to her home. The patient's urologist is Dr. Gonzalez. Patient is currently denying fever, chills, urinary symptoms, diarrhea, body aches. Related Data Home Medications Medication Instructions Recorded Confirmed lisinopril 20 1 tablet PO BID 08/20/21 04/04/22 mg-hydrochlorothiazide 12.5 mg tablet multivitamin 1 tablet PO DAILY 04/04/22 04/04/22 omeprazole 20 mg capsule,delayed 20 mg PO DAILY 04/04/22 04/04/22 release Allergies Allergy/AdvReac Type Severity Reaction Status Date / Time ketorolac [From Toradol] Allergy Headache Verified 06/23/22 05:51 tramadol AdvReac Mild VOMITING/HE Verified 06/23/22 05:51 ADACHE PMFSH Past Medical History Medical History Cholecystitis Depression GERD (gastroesophageal reflux disease) HTN (hypertension) Multiple kidney stones Neuropathy Documented in past medical history, patient unsure Obesity induced hypertension Radial head fracture Seasonal allergies Smoker Surgical History Surgical History H/O elbow surgery Screws in left elbow 2012 H/O: X3, 2001, 2002, 2010 H/O: hysterectomy 2016 Status post cystoscopy with ureteral stent placement Family History Family History Mother Diabetes mellitus Depression Alcoholism Father Hypertension Sibling Heart disease Son Asthma Grandparent Diabetes mellitus Cerebrovascular accident Social History Social History Smoking packs per day: 0.5 Smoking cigarettes per day: 10.0 Years smoked: 25 Smoking pack-years: 12.50 Smoking status: Current every day smoker Tobacco type: cigarettes Alcohol intake: never Alcohol use details: Socially Substance use: never Substance use type: does not use Gender identity (if verbalized by the patient): Female Sexual Orientation (if Verbalized by the Patient): Straight or Heterosexual Spiritual care concerns: No Exam Narrative: APPEARANCE: No apparent distress. Head: atraumatic. EYES: EOMI, NOSE: Atraumatic NECK: Trachea midline RESPIRATORY: No increased rate of breathing CARDIOVASCULAR: RRR, ABDOMINAL: Abdomen is soft and nontender no guarding or rebound. There is CVA tenderness on the right. MUSCULOSKELETAL: No obvious deformities NEURO: Alert. Moving 4/4 extremities SKIN:: Warm, dry. Normal color PSYCHIATRIC: Normal affect Course Vital Signs Vital signs: Vital Signs Temperature 98.0 F 08/19/22 21:41 Pulse Rate 120 H 08/19/22 21:41 Respiratory Rate 20 08/19/22 21:41 Blood Pressure 197/136 H 08/19/22 21:41 Pulse Oximetry 99 08/19/22 21:41 Oxygen Delivery Room Air 08/19/22 21:41 Temperature 98.0 F 08/19/22 21:41 Pulse Rate 120 H 08/19/22 21:41 Respiratory Rate 20 08/19/22 21:41 Blood Pressure 197/136 H 08/19/22 21:41 Pulse Oximetry 99 08/19/22 21:41 Oxygen Delivery Room Air 08/19/22 21:41 Medical Decision Making [facility] Narrative Medical decision making narrative: -Presentation: 42-year-old with known kidney stones presenting ED with flank pain and concerns for infection. -DDX includes bu
== END 2022-08-20 02:16 | disposition home or self-care (01) ==
PROVIDERS: Emergency Provider Emergency Medicine; PCP Internal Medicine
DX: N20.0 Calculus of kidney (principal); F41.9 Anxiety disorder, unspecified; I10 Essential (primary) hypertension; K21.9 Gastro-esophageal reflux disease without esophagitis; E66.9 Obesity, unspecified; Z68.31 Body mass index [BMI] 31.0-31.9, adult; Z90.710 Acquired absence of both cervix and uterus; F17.210 Nicotine dependence, cigarettes, uncomplicated; Z87.442 Personal history of urinary calculi; R94.31 Abnormal electrocardiogram [ECG] [EKG]
CPT/HCPCS: 36415; 74018; 80048; 80053; 81003; 85025; 93005; 96361; 96365; 96375; 99284; J0131; J1170; J2405; J7030

== ENCOUNTER 2022-10-17 18:33 | Emergency (ER) | payer OTHER, SELFPAY ==
[2022-10-17] VITALS (12 sets, daily range): BP systolic 194–235; BP diastolic 113–127; PULSE 80; RESP 18; TEMP 36.8; O2SAT 95–100
--- NOTE | ~2022-10-17 | CT_ITS ---
EXAMINATION: CT abdomen pelvis wo con DATE: 10/17/2022 20:45 INDICATION: R/O kidney stone TECHNIQUE: Computed tomography (CT) of the abdomen and pelvis was performed without intravenous contr ast. Automated exposure control and iterative reconstruction technique were employed. The dose-length product was 390.25 mGy-cm. COMPARISON: None. FINDINGS: Lower thorax: Unremarkable Liver: Enlarged. Biliary/Gallbladder: Gallbladder is collapsed. No bile duct dilation. Pancreas: No mass or duct dilation. Spleen: Normal. Adrenals:No mass. Kidneys: Punctate nonobstructing left midpole calcification. No suspicious mass. No hydronephrosis. GI tract: No small or large bowel dilation. Normal appendix. Diverticulosis without diverticulitis. Mesentery/Peritoneum: No ascites, mass, or free air. Retroperitoneum: No mass. Atherosclerotic abdominal aortic and/or arterial calcifications. Pelvis: Uterus surgically absent. Decompressed urinary bladder. Multiple left ovarian cysts, the larg est measures up to 3.7 cm, not definitively simple in this CT exam. Right ovary not confidently visua lized. Stable pelvic phleboliths. Soft Tissues: Soft tissues and body wall unremarkable. Bones: No acute osseous finding. IMPRESSION: No acute abdominopelvic process. Hepatomegaly. Collapsed gallbladder, not well evaluated. Multiple le ft ovarian cysts, largest measuring 3.7 cm, recommend nonemergent, outpatient pelvic ultrasound for f urther characterization. Reviewed, dictated and finalized at location K. 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 Hepatomegaly. Collapsed gallbladder, not well evaluated. Multiple left ovarian cysts, largest measuring 3.7 cm, recommend non emergent, outpatient pelvic ultrasound for further characterization.
--- NOTE | ~2022-10-17 | CT_ITS ---
EXAMINATION: CT brain wo con DATE: 10/17/2022 19:22 INDICATION: headache . TECHNIQUE: Computed tomography (CT) of the head was performed without intravenous contrast. The mA wa s adjusted according to patient size. Iterative reconstruction technique was employed. The dose-lengt h product was 605.33 mGy-cm. COMPARISON: 09/02/2019. FINDINGS: No acute intracranial hemorrhage or extra-axial fluid collection. No hydrocephalus, mass, or herniation. No acute ischemic infarct. Unremarkable dural venous sinus attenuation. No acute osseous abnormality. Trace left mastoid fluid, the remaining aerated spaces are clear. IMPRESSION: No acute intracranial process. Reviewed, dictated and finalized at location K. ER
--- NOTE | 2022-10-17 19:04 | ECG_ITS ---
Measurements Intervals [place] Rate: 72 P: 28 GA: 168 QRS: 38 QRSD: 84 T: 1 QT: 401 QTc: 440 Interpretive Statements SINUS RHYTHM NONSPECIFIC ST & T-WAVE ABNORMALITY- DIFFUSE LEADS BORDERLINE ECG COMPARED TO ECG 08/20/2022 01:28:21 NO SIGNIFICANT CHANGES Electronically Signed On 10-18-2022 14:56:44 EXPERT WITNESS by Leonel Méndez D.O.
[2022-10-17 19:43] LABS: Basophils Absolute Auto 0.1 K/mm3 (0.0-0.1); Basophils Percent Auto 0.5 % (0.2-1.2); Eosinophils Absolute Auto 0.2 K/mm3 (0-0.3); Eosinophils Percent Auto 1.5 % (0-4.4); Hemoglobin 15.2 g/dL (12.0-15.0); Immature Granulocyte Absolute 0.02 K/mm3 (0.00-0.031); Immature Granulocyte Percent A 0.2 % (0-0.5); Lymphocytes Absolute Auto 2.93 K/mm3 (0.9-3.2); Lymphocytes Percent Auto 29.1 % (18.3-44.2); Mean Corpuscular HGB Conc 35.3 g/dl (32-36); Mean Corpuscular Hemoglobin 30.9 pg (26-34); Mean Corpuscular Volume 87.4 fl (80-100); Mean Platelet Volume 9.4 fl (7.4-10.4); Monocytes Absolute Auto 0.9 K/mm3 (0.1-0.6); Monocytes Percent Auto 9.2 % (2.6-8.5); Neutrophils Percent Auto 59.5 % (45.5-73.1); Platelet Count Result 300 k/mm3 (150-375); Red Blood Count 4.92 M/mm3 (4.2-5.4); Red Cell Distribution Width 12.1 % (11.5-14.5); White Blood Count 10.1 K/mm3 (4.5-10.0)
[2022-10-17 19:53] LABS: Alanine Aminotransferase 35 U/L (6-35); Albumin Level 4.6 g/dL (3.5-5.1); Alkaline Phosphatase 98 U/L (38-126); Anion Gap 7 mmol/L (8-16); Aspartate Amino Transferase 32 U/L (14-36); Bilirubin,Total 0.4 mg/dL (0.2-1.3); Blood Urea Nitrogen 11 mg/dL (7-17); Calcium 9.3 mg/dL (8.4-10.2); Carbon Dioxide 26 mmol/L (22-30); Chloride 103 mmol/L (98-107); Estimated CRCL calculation 122 ml/min; Estimated Glomerular Filt Rate > 60; Glucose 89 mg/dL (65-110); Potassium 3.2 mmol/L (3.4-5.0); Sodium 136 mmol/L (137-145)
[2022-10-17 20:34] LABS: Appearance Urine Slightly Cloudy (Clear); Bilirubin Urine 1+ (Negative); Blood Urine Trace-lysed (Negative); Color Urine Amber (Yellow); Glucose Urine UA Negative (Negative); Ketones Urine 1+ mg/dL (Negative); Leukocyte Esterase Ur Negative LEU/UL (Negative); Nitrate Urine Negative (Negative); Protein Urine 1+ mg/dL (Negative); Specific Grav Ur >= 1.030 (1.001-1.035); Urobilinogen Urine 0.2 mg/dL (<2.0)
--- NOTE | 2022-10-17 20:36 | ED.GENADULT ---
HPI - General Adult General Chief complaint: Abdominal Pain Stated complaint: stone or severe infection in right kidney Time Seen by Provider: 10/17/22 20:14 History of Present Illness HPI narrative: This is a 42-year-old female presenting ED with chief complaint of right-sided flank pain. Patient has history of multiple kidney stones in the past. Pain started 2:00 a.m. this morning stabbing pain in the right flank that radiates down to her right groin. It is 8/10 intensity and constant. She says this feels like when she has had kidney stones in the past. It is worse with movement and there are no alleviating factors. She took Motrin at 2:30 a.m. with minimal relief. She has nausea but no vomiting. No fever no chills no diarrhea no dysuria urgency or frequency. Related Data Home Medications Medication Instructions Recorded Confirmed lisinopril 20 1 tablet PO BID 08/20/21 04/04/22 mg-hydrochlorothiazide 12.5 mg tablet multivitamin 1 tablet PO DAILY 04/04/22 04/04/22 omeprazole 20 mg capsule,delayed 20 mg PO DAILY 04/04/22 04/04/22 release Allergies Allergy/AdvReac Type Severity Reaction Status Date / Time ketorolac [From Toradol] Allergy Headache Verified 06/23/22 05:51 tramadol AdvReac Mild VOMITING/HE Verified 06/23/22 05:51 ADACHE PMFSH Past Medical History Medical History Cholecystitis Depression GERD (gastroesophageal reflux disease) HTN (hypertension) Multiple kidney stones Neuropathy Documented in past medical history, patient unsure Obesity induced hypertension Radial head fracture Seasonal allergies Smoker Surgical History Surgical History H/O elbow surgery Screws in left elbow 2012 H/O: X3, 2001, 2002, 2010 H/O: hysterectomy 2016 Status post cystoscopy with ureteral stent placement Family History Family History Mother Diabetes mellitus Depression Alcoholism Father Hypertension Sibling Heart disease Son Asthma Grandparent Diabetes mellitus Cerebrovascular accident Social History Social History Smoking packs per day: 0.5 Smoking cigarettes per day: 10.0 Years smoked: 25 Smoking pack-years: 12.50 Smoking status: Current every day smoker Tobacco type: cigarettes Alcohol intake: never Alcohol use details: Socially Substance use: never Substance use type: does not use Living arrangements: with family Gender identity (if verbalized by the patient): Female Sexual Orientation (if Verbalized by the Patient): Straight or Heterosexual Spiritual care concerns: No Exam Narrative: APPEARANCE: No apparent distress. Head: atraumatic. EYES: EOMI, NOSE: Atraumatic NECK: Trachea midline RESPIRATORY: No increased rate of breathing CARDIOVASCULAR: RRR, ABDOMINAL: Right CVA tenderness, abdomen is soft nontender with no guarding or rebound MUSCULOSKELETAl: No obvious deformities NEURO: Alert. Moving 4/4 extremities SKIN:: Warm, dry. Normal color PSYCHIATRIC: Normal affect Course Vital Signs Vital signs: Vital Signs Temperature 98.3 F 10/17/22 18:58 Pulse Rate 80 10/17/22 18:58 Respiratory Rate 18 10/17/22 18:58 Blood Pressure 235/127 H 10/17/22 18:58 Pulse Oximetry 100 10/17/22 18:58 Oxygen Delivery Room Air 10/17/22 18:58 Temperature 98.3 F 10/17/22 18:58 Pulse Rate 80 10/17/22 18:58 Respiratory Rate 18 10/17/22 18:58 Blood Pressure 194/127 H 10/17/22 21:31 Pulse Oximetry 97 10/17/22 21:59 Oxygen Delivery Room Air 10/17/22 18:58 Medical Decision Making MDM Narrative Medical decision making narrative: -Presentation: 42-year-old female with a history of kidney stones and pyelonephritis presenting with right-sided flank pain. CT on pelvis without contrast, lab work and urinalysis been ordered.
[2022-10-17 20:47] LABS: Troponin I < 0.012 ng/mL (0.000-0.034)
[2022-10-17 21:14] LABS: Add Urine Microscopic? YES; RBC Urine 0-2 /hpf (0-2); WBC Urine 0-3 /hpf
[2022-10-17 21:15] LABS: Mucus Urine Moderate /lpf; Squamous Epithelial Cell Urine Moderate /hpf (Few)
[2022-10-17] MEDS: HYDROmorphone HCL INJ (*CRX) 1 MG/ML SYR 0.5 MG IV PUSH (21:24)
[2022-10-17] MEDS: POTASSIUM CHLORIDE 20 MEQ TABLET 40 MEQ PO (23:31)
== END 2022-10-17 23:40 | disposition home or self-care (01) ==
PROVIDERS: Emergency Medicine; Emergency Provider Emergency Medicine; PCP Internal Medicine
DX: R10.9 Unspecified abdominal pain (principal); N83.202 Unspecified ovarian cyst, left side; I10 Essential (primary) hypertension; E66.9 Obesity, unspecified; K21.9 Gastro-esophageal reflux disease without esophagitis; Z68.31 Body mass index [BMI] 31.0-31.9, adult; F17.210 Nicotine dependence, cigarettes, uncomplicated; Z87.442 Personal history of urinary calculi; Z90.710 Acquired absence of both cervix and uterus; R16.0 Hepatomegaly, not elsewhere classified; K82.8 Other specified diseases of gallbladder
CPT/HCPCS: 36415; 70450; 74176; 80053; 81001; 84484; 85025; 93005; 96365; 96375; 99284; A9270; J0131; J1170

== ENCOUNTER 2022-12-05 20:39 | Emergency (ER) | payer OTHER, SELFPAY ==
[2022-12-05 20:41] VITALS: BP 145/116; PULSE 89; RESP 19; TEMP 36.6; O2SAT 100
[2022-12-05] MEDS: METOCLOPRAMIDE HCL INJ 10 MG/2 ML VIAL IV PUSH (22:16)
[2022-12-05] MEDS: diphenhydrAMINE HCl INJ 50 MG/ML VIAL 25 MG IV PUSH (22:16)
[2022-12-05] MEDS: SODIUM CHLORIDE 0.9% IV 1,000 ML 999 ML IV CONT (22:17)
--- NOTE | 2022-12-05 22:34 | ED.HA ---
HPI - Headache General Chief Complaint: Headache <ASHA Velasquez Last Filed: 12/06/22 01:28> Stated Complaint: headache <ASHA Velasquez Last Filed: 12/06/22 01:28> Time Seen by Provider: 12/05/22 21:29 <ASHA Velasquez Last Filed: 12/06/22 01:28> Source: patient <ASHA Velasuqez Last Filed: 12/06/22 01:28> Mode of arrival: ambulatory <ASHA Velasquez Last Filed: 12/06/22 01:28> Limitations: no limitations <ASHA Velasquez Last Filed: 12/06/22 01:28> History of Present Illness HPI Narrative: Patient is a 42-year-old female who presents ED with report of headache. Patient reports she has been dealing with sinus issues for the last 2 weeks. She was seen at [facility] this morning for this at which time she was also noted to have elevated blood pressures. Patient does have a history of hypertension and takes amlodipine and hydralazine. She states she was given additional hydralazine in the ED there and pressures improved. She notes her pressures typically run around 140s to 150s systolic. She tested negative for strep, COVID, influenza, had a negative chest x-ray, and was discharged. She woke up from a nap around 12:30 PM this afternoon at which time she reported having a frontal headache. She took ibuprofen and Benadryl at home, but denied improvement. Pain continued to worsen and patient developed nausea and vomiting, which prompted her presentation. She does have a history of migraines and states this feels similar. She complains of photophobia and phonophobia, but denies vision changes, dizziness, lightheadedness, abdominal pain, chest pain, difficulty breathing, weakness, numbness, fevers, neck pain. <ASHA Velasquez Last Filed: 12/06/22 01:28> Related Data Home Medications: Home Medications Medication Instructions Recorded Confirmed multivitamin 1 tablet PO DAILY 04/04/22 10/22/22 omeprazole 20 mg capsule,delayed 20 mg PO DAILY 04/04/22 10/22/22 release amlodipine 10 mg tablet 10 mg PO DAILY 10/22/22 10/22/22 hydralazine 25 mg tablet 25 mg PO TID 10/22/22 10/22/22 <Nubia Gomez PA-C - Last Filed: 12/06/22 01:28> Allergies/Adverse Reactions: Allergies Allergy/AdvReac Type Severity Reaction Status Date / Time ketorolac [From Toradol] Allergy Headache Verified 10/22/22 11:12 tramadol AdvReac Mild VOMITING/HE Verified 10/22/22 11:12 ADACHE <Nubia Gomez PA-C - Last Filed: 12/06/22 01:28> Review of Systems Review of Systems: CONSTITUTIONAL: Denies fever, chills, or sweats. EYES: See HPI. ENT: See HPI. CARDIOVASCULAR: Denies chest pain, palpitations, or edema. RESPIRATORY: Denies cough or dyspnea. GASTROINTESTINAL: See HPI. GENITOURINARY: Denies dysuria or hematuria. SKIN: Denies rash or itching. MUSCULOSKELETAL: Denies back pain, joint pain, or myalgia. NEUROLOGIC: See HPI. <Nubia Gomez PA-C - Last Filed: 12/06/22 01:28> All systems reviewed & are unremarkable except as noted in HPI and below <ASHA Velasquez Last Filed: 12/06/22 01:28> [facility] Past Medical History Medical History: Medical History Cholecystitis Depression GERD (gastroesophageal reflux disease) HTN (hypertension) Multiple kidney stones Neuropathy Documented in past medical history, patient unsure Obesity induced hypertension Radial head fracture Seasonal allergies Sleep paralysis, recurrent isolated Smoker <Nubia Gomez PA-C - Last Filed: 12/06/22 01:28> Surgical History Surgical History: Surgical History H/O elbow surgery Screws in left elbow 2012 H/O: X3, 2001, 2002, 2010 H/O: hysterectomy 2016 Status post cystoscopy with ureteral stent placement <Nubia Gomez PA-C - Last Filed: 12/06/22 01:28>
[2022-12-05] MEDS: IBUPROFEN IV 400 MG in SODIUM CHLORIDE 0.9% IV 100 ML 208 MG IVPB (23:11)
[2022-12-06 01:24] VITALS: BP 171/94; PULSE 77; RESP 18; TEMP 36.6; O2SAT 99
== END 2022-12-06 01:24 | disposition home or self-care (01) ==
PROVIDERS: Emergency Provider Physician Assistant; PCP Internal Medicine
DX: G43.009 Migraine without aura, not intractable, without status migrainosus (principal); I10 Essential (primary) hypertension; K21.9 Gastro-esophageal reflux disease without esophagitis; Z87.442 Personal history of urinary calculi; E66.9 Obesity, unspecified; Z68.30 Body mass index [BMI] 30.0-30.9, adult; Z90.710 Acquired absence of both cervix and uterus; F17.210 Nicotine dependence, cigarettes, uncomplicated
CPT/HCPCS: 96360; 96365; 96367; 96375; 99283; 99284; J0131; J1100; J1200; J1741; J2765; J7030

== ENCOUNTER 2022-12-11 11:29 | Outpatient (CLI) | payer OTHER, SELFPAY ==
[2022-12-11 19:39] LABS: Anion Gap 4 mmol/L (8-16); Blood Urea Nitrogen 11 mg/dL (7-17); CRP 0.6 mg/dL (<1.0); Carbon Dioxide 29 mmol/L (22-30); Chloride 103 mmol/L (98-107); Estimated Glomerular Filt Rate > 60; Glucose 79 mg/dL (65-110); Potassium 3.8 mmol/L (3.4-5.0); Sodium 136 mmol/L (137-145)
[2022-12-11 19:51] LABS: Immunoglobulin G 774 mg/dL (700-1600); Rheumatoid Factor < 12.0 IU/ML (<12)
[2022-12-11 20:16] LABS: Erythrocyte Sedimentation Rate 9 mm/hr (0-20)
[2022-12-11 21:33] LABS: Hepatitis C Virus Antibody Negative (Negative)
[2022-12-14 12:14] LABS: ANA Cascade Screen Negative (Negative)
[2022-12-15 02:31] LABS: Albumin 4.1 g/dL (3.8-4.8); Alpha 1 Globulin 0.3 g/dL (0.2-0.3); Alpha 2 Globulin 0.7 g/dL (0.5-0.9); Beta 1 Globulin 0.5 g/dL (0.4-0.6); Gamma Globulin 0.8 g/dL (0.8-1.7); Protein, Total 6.9 g/dL (6.1-8.1)
[2022-12-15 12:05] LABS: Kappa\\Lambda Light Chains 1.23 (0.26-1.65)
== END 2022-12-11 11:30 | disposition home or self-care (01) ==
LOC: ANHGOSHLAB 11:31
PROVIDERS: PCP Internal Medicine; Visit Provider Internal Medicine
DX: M25.50 Pain in unspecified joint (principal); G62.9 Polyneuropathy, unspecified; R10.9 Unspecified abdominal pain; E87.6 Hypokalemia
CPT/HCPCS: 36415; 80048; 82607; 82784; 83883; 84155; 84165; 85652; 86038; 86140; 86430; 86803

== ENCOUNTER 2022-12-25 16:17 | Emergency (ER) | payer OTHER, SELFPAY ==
[2022-12-25] VITALS (7 sets, daily range): BP systolic 152–176; BP diastolic 103–126; PULSE 73–90; RESP 16–20; TEMP 36.6; O2SAT 96–100
--- NOTE | ~2022-12-25 | CT_ITS ---
EXAMINATION: CT abdomen pelvis wo con DATE: 12/25/2022 19:50 INDICATION: Right flank pain TECHNIQUE: Computed tomography (CT) of the abdomen and pelvis was performed without intravenous contr ast. Automated exposure control and iterative reconstruction technique were employed. The dose-length product was 557.62 mGy-cm. COMPARISON: 10/17/2022 FINDINGS: Mild atelectasis at the medial right middle lobe. Heart size is normal. No pericardial or pleural eff usion. Diffuse hepatic steatosis with focal sparing along the gallbladder fossa. Gallbladder, spleen, pancreas, bilateral adrenal glands and right kidney are normal. 2 mm nonobstructing stone at an uppe r pole calyx of the left kidney. No ureteral stones or hydronephrosis. There are few phleboliths in t he pelvis and one along the right gonadal vein. There is some mild wall thickening along the sigmoid colon with mild hyperemia along the associated vascular activity suspicious for a distal colitis. The re are also few sigmoid diverticula but without focal surrounding inflammatory stranding to suggest d iverticulitis. The more proximal colon, small bowel and appendix are normal. 2.7 cm left adnexal cyst /follicle. Uterus and right ovary are not visualized and have likely been resected. Bladder is normal . No free intraperitoneal gas or fluid. No pathologically enlarged abdominal or pelvic lymphadenopath y. Mild lumbar and moderate lower thoracic spondylosis. IMPRESSION: 1. Suggestion of a mild distal colitis. 2. 2 mm nonobstructing left renal stone. 3. Diffuse hepatic steatosis. Reviewed, dictated and finalized at location A.
[2022-12-25 17:08] LABS: Basophils Percent Auto 0.5 % (0.2-1.2); Eosinophils Absolute Auto 0.2 K/mm3 (0-0.3); Eosinophils Percent Auto 1.8 % (0-4.4); Hematocrit 42.4 % (37.0-47.0); Hemoglobin 14.8 g/dL (12.0-15.0); Immature Granulocyte Absolute 0.02 K/mm3 (0.00-0.031); Immature Granulocyte Percent A 0.2 % (0-0.5); Lymphocytes Absolute Auto 2.66 K/mm3 (0.9-3.2); Mean Corpuscular HGB Conc 34.9 g/dl (32-36); Mean Corpuscular Hemoglobin 30.8 pg (26-34); Mean Corpuscular Volume 88.3 fl (80-100); Mean Platelet Volume 9.3 fl (7.4-10.4); Monocytes Absolute Auto 0.7 K/mm3 (0.1-0.6); Monocytes Percent Auto 7.8 % (2.6-8.5); Neutrophils Absolute Auto 5.3 K/mm3 (1.3-6.7); Neutrophils Percent Auto 59.7 % (45.5-73.1); Platelet Count Result 251 k/mm3 (150-375); Red Cell Distribution Width 12.8 % (11.5-14.5); White Blood Count 8.9 K/mm3 (4.5-10.0)
[2022-12-25 17:11] LABS: Appearance Urine Clear (Clear); Bilirubin Urine Negative (Negative); Blood Urine Negative (Negative); Color Urine Yellow (Yellow); Glucose Urine UA Negative (Negative); Ketones Urine Negative (Negative); Leukocyte Esterase Ur Negative LEU/UL (Negative); Nitrate Urine Negative (Negative); Protein Urine Negative (Negative); Specific Grav Ur 1.016 (1.001-1.035); Urobilinogen Urine 0.2 mg/dL (<2.0); pH Urine 5.5 (5.0-9.0)
[2022-12-25 17:20] LABS: Add Urine Microscopic? NO
[2022-12-25 17:21] LABS: Alanine Aminotransferase 39 U/L (6-35); Albumin Level 4.4 g/dL (3.5-5.1); Alkaline Phosphatase 73 U/L (38-126); Anion Gap 8 mmol/L (8-16); Aspartate Amino Transferase 33 U/L (14-36); Bilirubin,Total 0.4 mg/dL (0.2-1.3); Blood Urea Nitrogen 11 mg/dL (7-17); Calcium 9.2 mg/dL (8.4-10.2); Carbon Dioxide 27 mmol/L (22-30); Chloride 103 mmol/L (98-107); Estimated CRCL calculation 104 ml/min; Estimated Glomerular Filt Rate > 60; Glucose 98 mg/dL (65-110); Potassium 3.5 mmol/L (3.4-5.0); Sodium 138 mmol/L (137-145)
[2022-12-25] MEDS: IBUPROFEN 400 MG TABLET 800 MG PO (19:34)
[2022-12-25] MEDS: ACETAMINOPHEN 500 MG TABLET 1000 MG PO (19:35)
[2022-12-25] MEDS: ONDANSETRON INJ 4 MG/2 ML VIAL IV PUSH (19:35)
[2022-12-25] MEDS: HYDROmorphone HCL INJ (*CRX) 1 MG/ML SYR 0.5 MG IV PUSH ×2 (19:35→20:49)
[2022-12-25] MEDS: SODIUM CHLORIDE 0.9% IV 1,000 ML 999 ML IV CONT (19:36)
--- NOTE | 2022-12-25 20:57 | ED.GENADULT ---
HPI - General Adult General Chief complaint: Back Pain/Injury Stated complaint: Flank pain Time Seen by Provider: 12/25/22 19:07 History of Present Illness HPI narrative: This is a 42-year-old female with a history of kidney stones presenting with right flank pain. Patient says that at 10:00 a.m. while she was working start of a stabbing pain and right flank. It is nonradiating 10 out 10 intensity getting worse. Feels similar to previous kidney stones. No exacerbating alleviating factors. She has had some nausea but no vomiting. No fever chills or urinary symptoms. Related Data Home Medications Medication Instructions Recorded Confirmed multivitamin 1 tablet PO DAILY 04/04/22 10/22/22 omeprazole 20 mg capsule,delayed 20 mg PO DAILY 04/04/22 10/22/22 release amlodipine 10 mg tablet 10 mg PO DAILY 10/22/22 10/22/22 hydralazine 25 mg tablet 25 mg PO TID 10/22/22 10/22/22 Allergies Allergy/AdvReac Type Severity Reaction Status Date / Time ketorolac [From Toradol] Allergy Headache Verified 10/22/22 11:12 tramadol AdvReac Mild VOMITING/HE Verified 10/22/22 11:12 ADACHE PMFSH Past Medical History Medical History Cholecystitis Depression GERD (gastroesophageal reflux disease) HTN (hypertension) Multiple kidney stones Neuropathy Documented in past medical history, patient unsure Obesity induced hypertension Radial head fracture Seasonal allergies Sleep paralysis, recurrent isolated Smoker Surgical History Surgical History H/O elbow surgery Screws in left elbow 2012 H/O: X3, 2001, 2002, 2009 H/O: hysterectomy 2016 Status post cystoscopy with ureteral stent placement Family History Family History Mother Diabetes mellitus Depression Alcoholism Father Hypertension Sibling Heart disease Son Asthma Grandparent Diabetes mellitus Cerebrovascular accident Social History Social History Smoking packs per day: 0.5 Smoking cigarettes per day: 10.0 Years smoked: 25 Smoking pack-years: 12.50 Smoking status: Current every day smoker Tobacco type: cigarettes Alcohol intake: never Alcohol use details: Socially Substance use: never Substance use type: does not use Lack of Transportation: No Lack of Food: Never True Current Housing: I Have Housing Concerned About Future Housing: No Difficulty Paying Gas/Electric Bills: No Difficulty Paying for Meds: No Currently Unemployed: No Education: High School Diploma/GED Difficulty w/ Childcare or Family Care: No Living arrangements: with family Gender identity (if verbalized by the patient): Female Sexual Orientation (if Verbalized by the Patient): Straight or Heterosexual Spiritual care concerns: No Exam Narrative: APPEARANCE: No apparent distress. Head: atraumatic. EYES: EOMI, NOSE: Atraumatic NECK: Trachea midline RESPIRATORY: No increased rate of breathing CTAB CARDIOVASCULAR: RRR, ABDOMINAL: Non-distended soft nontender no guarding or rebound, right CVA tenderness MUSCULOSKELETAl: No obvious deformities NEURO: Alert. Moving 4/4 extremities SKIN:: Warm, dry. Normal color PSYCHIATRIC: Normal affect Course Vital Signs Vital signs: Vital Signs Temperature 97.9 F 12/25/22 16:39 Pulse Rate 90 12/25/22 16:39 Respiratory Rate 20 12/25/22 16:39 Blood Pressure 166/107 H 12/25/22 16:39 Pulse Oximetry 99 12/25/22 16:39 Oxygen Delivery Room Air 12/25/22 16:39 Temperature 97.9 F 12/25/22 16:39 Pulse Rate 73 12/25/22 20:16 Respiratory Rate 16 12/25/22 20:16 Blood Pressure 152/103 H 12/25/22 20:16 Pulse Oximetry 97 12/25/22 20:16 Oxygen Delivery Room Air 12/25/22 16:39 Medical Decision Making [facility] Narrative Medical decision making narrative: -Presentatio
[2022-12-25] MEDS: methocarbamoL 750 MG TABLET 1500 MG PO (21:22)
== END 2022-12-25 21:26 | disposition home or self-care (01) ==
PROVIDERS: Emergency Medicine; Emergency Provider Emergency Medicine; PCP Internal Medicine
DX: R10.9 Unspecified abdominal pain (principal); I10 Essential (primary) hypertension; E66.9 Obesity, unspecified; Z68.31 Body mass index [BMI] 31.0-31.9, adult; Z90.710 Acquired absence of both cervix and uterus; K21.9 Gastro-esophageal reflux disease without esophagitis; F17.210 Nicotine dependence, cigarettes, uncomplicated; Z87.442 Personal history of urinary calculi; K76.0 Fatty (change of) liver, not elsewhere classified; N20.0 Calculus of kidney; R93.3 Abnormal findings on diagnostic imaging of other parts of digestive tract
CPT/HCPCS: 36415; 74176; 80053; 81003; 81025; 85025; 96361; 96374; 96375; 99284; A9270; J1170; J2405; J7030

== ENCOUNTER 2022-12-31 10:21 | Observation (INO) | payer OTHER, SELFPAY ==
[2022-12-31] VITALS (24 sets, daily range): BP systolic 136–223; BP diastolic 79–129; PULSE 61–110; RESP 13–20; TEMP 35.9–36.8; O2SAT 94–99; BMI 30.5
--- NOTE | ~2022-12-31 | US_ITS ---
EXAMINATION: US retroperitoneal duplex ltd DATE: 01/01/2023 13:35 INDICATION: Hypertension. TECHNIQUE: Multiple grayscale, color Doppler, and pulsed Doppler images of the kidneys and renal rian rick were obtained. COMPARISON: CT abdomen and pelvis 03/27/2022 FINDINGS: The aorta peak systolic velocity is 109 cm/s. The right renal artery peak systolic velocity is 84 cm/ s in the proximal segment, 146 cm/s in the mid segment, and 241 cm/s in the distal segment. The left renal artery peak systolic velocity is 87 cm/s in the proximal segment, 98 cm/s in the mid segment, a nd 59 cm/s in the distal segment. IMPRESSION: 1. Increased peak systolic velocity in distal right renal artery suspicious for renal artery stenosi s. Consider abdomen CTA. Reviewed, dictated and finalized at location A. IMPRESSION: 1. Increased peak systolic velocity in distal right renal artery suspicious fo r renal artery stenosis. Consider abdomen CTA.
--- NOTE | ~2022-12-31 | US_ITS ---
EXAMINATION: US right upper quadrant DATE: 01/01/2023 13:37 INDICATION: Right upper quadrant abdominal pain. TECHNIQUE: Multiple grayscale and Doppler ultrasound images of the abdomen were obtained. COMPARISON: CT abdomen and pelvis 12/25/2022 FINDINGS: The visualized portions of the head and body of the pancreas are normal. There is diffuse h epatic steatosis. No liver surface nodularity. There is normal flow in main portal vein. There is nor mal flow in main portal vein. The gallbladder is normal in size. No gallstones or gallbladder wall th ickening. There is no sonographic Palm sign. The common duct is normal and measures 5 mm. IMPRESSION: 1. Diffuse hepatic steatosis. Reviewed, dictated and finalized at location A.
--- NOTE | ~2022-12-31 | XR_ITS ---
EXAMINATION: XR chest 2V 12/31/2022 11:09 INDICATION: Hypertension. Right-sided chest pain. Blurred vision. PROCEDURE: 2 view chest COMPARISON: 08/20/2021 FINDINGS: The lungs are clear. The cardiomediastinal silhouette is within normal limits. There are no pleural effusions. There is no pneumothorax suspected. IMPRESSION: 1: NO ACUTE CARDIOPULMONARY DISEASE. Reviewed, dictated and finalized at location B.
--- NOTE | ~2022-12-31 | CT_ITS ---
EXAMINATION: CTA abdomen DATE: 01/02/2023 08:46 INDICATION: Abdominal aortic aneurysm TECHNIQUE: Computed tomographic angiography (CTA) of the abdomen was performed with 100 mL Omnipaque- 350 intravenous contrast. Volume-rendered 3D-reconstructions of the aorta and large arteries were con structed by the technologist on a separate workstation. Automated exposure control and iterative daniel nstruction technique were employed. The dose-length product was 267.46 mGy-cm. COMPARISON: None FINDINGS: Lung bases are clear. Heart size is normal. No pericardial or pleural effusion. Diffuse hepatic steat osis. Gallbladder, spleen, pancreas, bilateral adrenal glands and kidneys are normal. Visualized port ions of bowels are unremarkable. No pathologically enlarged abdominal lymphadenopathy. Abdominal aort a is normal in caliber with minimal atherosclerotic calcification along the infrarenal aorta. No evid ent plaque or hemodynamically significant stenosis at the celiac axis, superior mesenteric, inferior mesenteric or the left or right renal arteries including smaller caliber left accessory renal artery which supplies the lower pole of the left kidney. Chronic likely physiologic mild anterior wedging at T11 and T12. Mild to moderate lower thoracic spondylosis. IMPRESSION: 1. Normal caliber abdominal aorta with minimal nonhemodynamically significant plaque in the infrarena l aorta. The arteries arising from the aorta including the bilateral renal arteries and accessory lef t renal artery all appear widely patent. Reviewed, dictated and finalized at location A. IMPRESSION: 1. Normal caliber abdominal aorta with minimal nonhemodynamically significant p laque in the infrarenal aorta. The arteries arising from the aorta including th e bilateral renal arteries and accessory left renal artery all appear widely pa tent.
--- NOTE | 2022-12-31 10:47 | ECG_ITS ---
Measurements Intervals [place] Rate: 71 P: 2 NE: 174 QRS: 3 QRSD: 87 T: 60 QT: 388 QTc: 423 Interpretive Statements SINUS RHYTHM DELAYED PRECORDIAL R/S TRANSITION LEFT VENTRICULAR HYPERTROPHY WITH ST-T CHANGES BORDERLINE ECG COMPARED TO ECG 10/17/2022 19:13:09 NO SIGNIFICANT CHANGES Electronically Signed On 12-31-2022 11:36:40 CDT by Leonel Méndez D.O.
[2022-12-31 11:27] LABS: Basophils Absolute Auto 0.1 K/mm3 (0.0-0.1); Basophils Percent Auto 0.7 % (0.2-1.2); Eosinophils Absolute Auto 0.1 K/mm3 (0-0.3); Eosinophils Percent Auto 1.7 % (0-4.4); Hematocrit 41.8 % (37.0-47.0); Hemoglobin 14.6 g/dL (12.0-15.0); Immature Granulocyte Absolute 0.01 K/mm3 (0.00-0.031); Immature Granulocyte Percent A 0.1 % (0-0.5); Lymphocytes Percent Auto 29.3 % (18.3-44.2); Mean Corpuscular HGB Conc 34.9 g/dl (32-36); Mean Corpuscular Hemoglobin 30.7 pg (26-34); Mean Platelet Volume 9.3 fl (7.4-10.4); Monocytes Absolute Auto 0.6 K/mm3 (0.1-0.6); Monocytes Percent Auto 7.7 % (2.6-8.5); Neutrophils Absolute Auto 4.5 K/mm3 (1.3-6.7); Neutrophils Percent Auto 60.5 % (45.5-73.1); Platelet Count Result 252 k/mm3 (150-375); Red Blood Count 4.75 M/mm3 (4.2-5.4); Red Cell Distribution Width 12.5 % (11.5-14.5); White Blood Count 7.5 K/mm3 (4.5-10.0)
[2022-12-31] MEDS: hydrALAZINE HCL 20 MG/ML VIAL 10 MG IV PUSH ×2 (11:33→15:07)
[2022-12-31 11:37] LABS: Alanine Aminotransferase 36 U/L (6-35); Albumin Level 4.5 g/dL (3.5-5.1); Alkaline Phosphatase 78 U/L (38-126); Anion Gap 6 mmol/L (8-16); Aspartate Amino Transferase 28 U/L (14-36); Bilirubin,Total 0.5 mg/dL (0.2-1.3); Blood Urea Nitrogen 10 mg/dL (7-17); Calcium 8.7 mg/dL (8.4-10.2); Carbon Dioxide 26 mmol/L (22-30); Chloride 105 mmol/L (98-107); Estimated CRCL calculation 121 ml/min; Estimated Glomerular Filt Rate > 60; Glucose 82 mg/dL (65-110); Potassium 3.9 mmol/L (3.4-5.0); Sodium 137 mmol/L (137-145)
[2022-12-31 11:44] LABS: Prothrombin Time 13.9 Seconds (11.1-14.7)
[2022-12-31 11:45] LABS: Partial Thromboplastin Time 27.6 SECONDS (22.3-36.8)
[2022-12-31 11:49] LABS: Troponin I < 0.012 ng/mL (0.000-0.034)
[2022-12-31 12:06] LABS: Amphetamine Screen Urine Negative (Negative); Barbiturate Screen Urine Negative (Negative); Benzodiazepines Screen Urine Negative (Negative); Cannabinoid Screen Urine Negative (Negative); Cocaine Screen Urine Negative (Negative); Methadone Screen Urine Negative (Negative); Opiate Screen Urine Positive (Negative); Phencyclidine Screen Urine Negative (Negative)
--- NOTE | 2022-12-31 12:34 | ED.GENADULT ---
HPI - General Adult General Chief complaint: Recheck/Abnormal Lab/Rx Stated complaint: high BP Time Seen by Provider: 12/31/22 10:46 History of Present Illness HPI narrative: Patient is a 42-year-old female who presents ER with elevated blood pressure from her PCPs office. Blood pressure running in the 220s systolic after multiple checks. Patient reports she has had mild headache behind her eyes for the last 4 days and when she blinks over the last 3 days she will see some white spots. No chest pain or chest pressure. No difficulty breathing. No nausea or vomiting. She takes hydralazine at home as well as amlodipine. She took her last dose of amlodipine yesterday evening and she took her morning dose of hydralazine already. Related Data Home Medications Medication Instructions Recorded Confirmed multivitamin 1 tablet PO DAILY 04/04/22 12/31/22 omeprazole 20 mg capsule,delayed 20 mg PO DAILY 04/04/22 12/31/22 release hydralazine 25 mg tablet 25 mg PO TID 10/22/22 12/31/22 acetaminophen 650 mg 650 mg PO Q8H 12/31/22 12/31/22 tablet,extended release amlodipine 10 mg tablet 10 mg PO BID 12/31/22 12/31/22 Allergies Allergy/AdvReac Type Severity Reaction Status Date / Time ketorolac [From Toradol] Allergy Headache Verified 10/22/22 11:12 tramadol AdvReac Mild VOMITING/HE Verified 10/22/22 11:12 ADACHE Review of Systems Review of Systems: All systems reviewed & are unremarkable except as noted in HPI and below Constitutional: Constitutional: Denies chills, Denies fatigue and Denies fever(s) Eyes: Comments: White spots when blinking the eyes ENT: Denies nasal congestion and Denies sore throat Cardiovascular: Cardiovascular: Denies chest pain and Denies radiating jaw, neck or arm pain Respiratory: Respiratory: Denies cough and Denies dyspnea Gastrointestinal: Gastrointestinal: Denies abdominal pain, Denies nausea and Denies vomiting Neurologic: Reports headache(s), Denies focal weakness and Denies numbness PMFSH Past Medical History Medical History Cholecystitis Depression GERD (gastroesophageal reflux disease) HTN (hypertension) Multiple kidney stones Neuropathy Documented in past medical history, patient unsure Obesity induced hypertension Radial head fracture Seasonal allergies Sleep paralysis, recurrent isolated Smoker Surgical History Surgical History H/O elbow surgery Screws in left elbow 2012 H/O: X3, 2001, 2002, 2009 H/O: hysterectomy 2016 Status post cystoscopy with ureteral stent placement Family History Family History Mother Diabetes mellitus Depression Alcoholism Father Hypertension Sibling Heart disease Son Asthma Grandparent Diabetes mellitus Cerebrovascular accident Social History Social History (Updated 12/31/22 @ 09:09 by Connie Orlando [facility]) Smoking packs per day: 0.5 Smoking cigarettes per day: 10.0 Years smoked: 25 Smoking pack-years: 12.50 Smoking status: Current every day smoker Tobacco type: cigarettes Alcohol intake: never Alcohol use details: Socially Substance use: never Substance use type: does not use Lack of Transportation: No Lack of Food: Never True Current Housing: I Have Housing Concerned About Future Housing: No Difficulty Paying Gas/Electric Bills: No Difficulty Paying for Meds: No Currently Unemployed: No Education: Associate Degree Difficulty w/ Childcare or Family Care: No Living arrangements: with family Gender identity (if verbalized by the patient): Female Sexual Orientation (if Verbalized by the Patient): Straight or Heterosexual Spiritual care concerns: No Exam Narrative: GENERAL: Well-appearing, well-nourished, and in no acute distress. HEAD: Normocephalic, atraumatic. EYES: PERRL and EOMI. ENT: Mucous membranes moist. CHES
--- NOTE | 2022-12-31 14:28 | PM.IMHP ---
H&P: HPI History of Present Illness Date/Time: 12/31/22 14:30 Chief Complaint: High blood pressure with blurry vision and headache. Narrative: This is a 42-year-old female with historically poorly controlled hypertension who presented to the emergency department from her doctor's office for evaluation after she was found to have significantly elevated blood pressures in conjunction with blurry vision and headaches. Historically she has poorly controlled hypertension on review of her EMR. She was on lisinopril-hydrochlorothiazide but that apparently had no effect on her blood pressure and she was started on amlodipine and hydralazine while in the hospital at [facility] this year in which she was treated for a kidney infection. She is compliant with her medications but her blood pressures remain poorly controlled. She saw her doctor in the office today for follow-up after an ER visit for right flank pain which she thinks is related to her gallbladder. While at her doctor's office she mentioned that she was having headache and that she has been seeing floaters in her vision. Her blood pressure was as high as 223/129 and she was directed to the ER where she was given IV hydralazine with some improvement. She is being admitted in this setting for judicious lowering of her blood pressure. With further questioning it is not unusual for her to have headaches and she describes a pressure-like discomfort over the crown of the head. She does get floaters on occasion when her blood pressures are high. Her biggest complaint however is that of continued right-sided pain which seems to be related to meals. She has had an upper quadrant ultrasound done previously (not at this facility) and has no gallstones but she was told that she may have sludge in that her gallbladder does not seem to function well. She thinks the pain that she is having is likely driving up her blood pressures. She denies fever, chills, sweats, vertigo, focal weakness, paresthesias, facial droop, difficulty speaking and swallowing, chest pain, shortness a breath, orthopnea, lower extremity edema, hematuria, and foamy urine. Review of Systems Review of Systems: Twelve systems were reviewed and are negative except for as per HPI. [facility] Past Medical History Medical History Depression Gastroesophageal reflux disease Hypertension Multiple kidney stones Obesity Seasonal allergies Sleep paralysis, recurrent isolated Smoker Surgical History Surgical History (Updated 12/31/22 @ 14:31 by Pema Brantley PA-C) History of section 2000, 2002, 2010 History of endometrial ablation (2009) History of hysterectomy (2016) History of open reduction and internal fixation (ORIF) procedure (2012) Left elbow. History of tubal ligation Status post cystoscopy with ureteral stent placement Family History Family History Mother Diabetes mellitus Depression Alcoholism Father Hypertension Sibling Congenital heart disease Son Asthma Grandparent Diabetes mellitus Cerebrovascular accident Social History Social History (Updated 01/01/23 @ 20:47 by ePma Brantley PA-C) Social History: Surrogate medical decision maker: Bang Luke, spouse. Code status: Full code. Smoking packs per day: 0.5 Smoking cigarettes per day: 10.0 Years smoked: 30 Smoking pack-years: 15.00 Smoking status: Former smoker Tobacco type: cigarettes Alcohol intake: current Alcohol use details: Social alcohol use in moderation. Substance use: never Substance use type: does not use Lack of Transportation: No Lack of Food: Never True Current Housing: I Have Housing Concerned About Future Housing: No Difficulty Paying Gas/Electric Bills: No Difficulty Paying for Meds: No Currently Unemployed: No Education: High School Diploma/GED Difficulty w/ Childcare or Family Care: No Living a
[2022-12-31] MEDS: HYDROcodone/acetaminophen (*CRX) 5-325 MG TABLET 1 TAB PO (15:07)
[2022-12-31] MEDS: LOSARTAN POTASSIUM 25 MG TABLET PO (16:41)
[2022-12-31] MEDS: hydrALAZINE HCL 25 MG TABLET PO (16:42)
[2022-12-31] MEDS: amLODIPine BESYLATE 5 MG TABLET PO (16:42)
[2022-12-31] MEDS: ONDANSETRON INJ 4 MG/2 ML VIAL IV PUSH (16:45)
--- NOTE | 2022-12-31 19:03 | ADMGEN ---
This patient, Renee Luke, was admitted to IMU Room 201-01 at 1438. Patient/family oriented to hospital policies and general routines including ID bracelet, bed and alarms, visiting hours, pain management, procedures, bathroom and other care routines, personal items, smoking policy, room service/diet, and visiting hours. Information on how to activate the Rapid Response Team has been discussed. Patient/Family are encouraged to report perceived risks to care and to ask questions if they do not understand what they are told or what they should do.
[2022-12-31] MEDS: ACETAMINOPHEN 325 MG TABLET 650 MG PO (20:52)
[2022-12-31] MEDS: methocarbamoL 750 MG TABLET 1500 MG PO (20:52)
[2023-01-01] VITALS (15 sets, daily range): BP systolic 120–168; BP diastolic 80–109; PULSE 66–87; RESP 14–18; TEMP 36.2–36.7; O2SAT 94–99
[2023-01-01 05:19] LABS: Anion Gap 6 mmol/L (8-16); Blood Urea Nitrogen 10 mg/dL (7-17); Calcium 8.7 mg/dL (8.4-10.2); Carbon Dioxide 26 mmol/L (22-30); Chloride 105 mmol/L (98-107); Estimated CRCL calculation 120 ml/min; Estimated Glomerular Filt Rate > 60; Glucose 89 mg/dL (65-110); Magnesium 2.2 mg/dL (1.6-2.3); Potassium 3.8 mmol/L (3.4-5.0); Sodium 137 mmol/L (137-145)
[2023-01-01 06:04] LABS: Thyroid Stimulating Hormone Reflex 0.496 uIU/mL (0.465-4.68)
--- NOTE | 2023-01-01 08:00 | ECHO_ITS ---
Patient Info Name: Renee Luke Age: 42 years : 1980 Gender: Female Ht: 63 in Wt: 176 lbs BSA: 1.91 m2 HR: 73 bpm BP: 150 / 92 mmHg Technical Quality: Good Exam Date: 01/01/2023 11:23 AM Exam Location: [facility] Pulmonary Exam Room: 201 Patient Status: Inpatient Admit Date: 12/31/2022 Staff Ordering Physician: Pema Brantley PA-C Intake Clerk: Emma Mead RDCS Attending Provider: Celine Chavis DO Referring Physician: Karon LONG; Exam Type: CA echo doppler color flow Study Info Indications - hypertensive urgency ekg changes Complete two-dimensional, color flow and Doppler transthoracic echocardiogram is performed. Summary 1. Complete two-dimensional, color flow and Doppler transthoracic echocardiogram is performed. 2. Left ventricular chamber dimension is normal. 3. Left ventricular systolic function is normal, estimated at 60-65%. 4. There is mild concentric increased left ventricular wall thickness. 5. The left ventricular diastolic function is abnormal. 6. E/e' 12 is mildly elevated. 7. Left atrial chamber dimension is mildly enlarged. 8. There is trace mitral valve regurgitation. 9. There is trace tricuspid valve regurgitation. 10. No pulmonary hypertension, estimated pulmonary arterial systolic pressure is 27 mmHg. Left Ventricle E/e' 12 is mildly elevated. Left ventricular chamber dimension is normal. Left ventricular systolic function is normal, estimated at 60-65%. There is mild concentric increased left ventricular wall thickness. The left ventricular diastolic function is abnormal. Right Ventricle Right ventricular chamber dimension is normal. Right ventricular systolic function is normal. Left Atria Left atrial chamber dimension is mildly enlarged. Right Atria Right atrial chamber dimension is normal. Aortic Valve The aortic valve is trileaflet. There is no aortic valve stenosis. There is no aortic valve regurgitation. Pulmonic Valve There is no pulmonic regurgitation. Mitral Valve There is no mitral valve stenosis. There is trace mitral valve regurgitation. Tricuspid Valve There is trace tricuspid valve regurgitation. No pulmonary hypertension, estimated pulmonary arterial systolic pressure is 27 mmHg. Pericardium/Pleural There is no pericardial effusion. Inferior Vena Cava Normal inferior vena cava with >50% collapse upon inspiration consistent with normal right atrial pressure, 5 mmHg. Aorta The aortic root size at the sinus of Valsalva is normal. Left Ventricular Outflow Tract Name Value Normal LVOT 2D LVOT Diameter 2.0 cm LVOT Doppler LVOT Peak Gradient 5 mmHg LVOT Mean Gradient 3 mmHg LVOT VTI 20 cm LVOT VTI/AV VTI Ratio 0.9 LVOT Stroke Volume 62 ml LVOT CO 15.0 l/min LVOT CI 7.9 l/min/m2 Pulmonic Valve Name Value Normal RVOT D
[2023-01-01] MEDS: MULTIVITAMINS THERAPEUTIC TAB (*BKC) 1 TABLET PO (09:09)
[2023-01-01] MEDS: hydroCHLOROthiazide 12.5 MG CAPSULE PO (09:09)
[2023-01-01] MEDS: PANTOPRAZOLE 40 MG TABLET PO (09:09)
[2023-01-01] MEDS: LOSARTAN POTASSIUM 25 MG TABLET PO ×2 (09:09→13:48)
[2023-01-01] MEDS: amLODIPine BESYLATE 5 MG TABLET 10 MG PO (09:09)
--- NOTE | 2023-01-01 12:32 | PM.IMPN ---
Progress Note: A&P Assessment and Plan (1) Hypertensive urgency: Code(s): I16.0 - Hypertensive urgency Status: Acute Assessment and Plan: Previously on hydrochlorothiazide-lisinopril but that ?stopped working? in she was switched to amlodipine and hydralazine. Blood pressures remain poorly controlled in the low 200s over low 100s. Continue amlodipine. Add losartan and hydrochlorothiazide which can be titrated. Stop hydralazine if tolerated as this seems to make her heart race when she takes it. Echocardiogram ordered given changes noted on EKG. Renal duplex ordered as well. Will increase losartan to 50 mg continue hydrochlorothiazide and amlodipine as ordered (2) Abnormal EKG: Code(s): R94.31 - Abnormal electrocardiogram [ECG] [EKG] Status: Acute Assessment and Plan: Plan is as detailed above. Changes are likely related to longstanding history of poorly controlled hypertension. No chest pain. (3) Right sided abdominal pain: Code(s): R10.9 - Unspecified abdominal pain Status: Acute Assessment and Plan: An ongoing problem for the patient. She believes it is likely related to her gallbladder. She thinks her blood pressures continue to run high due to daily pain. No evidence of acute cholecystitis at this time. Get right upper quadrant ultrasound. Previous gallbladder ultrasound in the past showed diffuse hepatic steatosis. Subjective Date/time seen: 01/01/23 12:32 Interval history: Feeling better. Still has right upper quadrant pain. She has chronic hypertension on multiple different medications. Intermittent nausea and vomiting. Chart reviewed repeated ER visit for right flank pain. LFT normal troponin negative TSH normal. Chest x-ray is negative CT abdomen pelvis on 12/25/2022 with mild distal colitis on left side 2 mm nonobstructing left renal stone diffuse hepatic steatosis. No history of alcohol abuse. History of recurrent kidney stones with history of obstructive uropathy needing stent placement dated back in 03/2022. Removal of right ovary. History of left ovarian cyst Review of Systems Review of Systems: All systems reviewed & are unremarkable except as noted in HPI and below Exam Narrative: General: Well-developed, nontoxic-appearing female sitting up in bed. HEENT: PERRL, EOMI. Sclera anicteric. Oral mucosa moist. Neck: Supple. No carotid bruits. Respiratory: Lungs are clear to auscultation bilaterally. No respiratory distress Cardiovascular: Regular rate and rhythm with S1-S2. Gastrointestinal: Abdomen is soft, tender right upper quadrant, and nondistended with positive bowel sounds. Negative Palm sign. Skin: Warm and dry. No rash or lesions on limited exam. Extremities: No cyanosis, clubbing, or edema. Radial and pedal pulses intact. Neurological: Alert. Cranial nerves 2-12 are grossly intact. No gross focal deficits to casual conversation. Psychiatric: Pleasant and cooperative with normal mood and affect. Judgment and insight intact. Objective Data Vital Signs Vital Signs: Vital Signs - 24 hr 12/31/22 12:39 12/31/22 12:45 12/31/22 12:46 Temperature Pulse Rate 77 76 77 Respiratory Rate 16 18 20 Blood Pressure 186/113 H Pulse Oximetry 98 98 97 Oxygen Delivery 12/31/22 13:00 12/31/22 13:01 12/31/22 14:05 Temperature Pulse Rate 74 85 82 Respiratory Rate 15 14 18 Blood Pressure 165/116 H 163/107 H Pulse Oximetry 97 98 98 Oxygen Delivery 12/31/22 15:12 12/31/22 16:09 12/31/22 16:00 Temperature 96.8 F L 96.7 F L Pulse Rate 82 91 83 Respiratory Rate 20 20 Blood Pressure 216/117 H 175/106 H Pulse Oximetry 98 96 Oxygen Delivery 12/31/22 18:11 12/31/22 16:00 12/31/22 18:00 Temperature Pulse Rate 96 Respiratory Rate Blood Pressure 141/79 H Pulse Oximetry Oxygen Delivery Room Air 12/31/22 20:00 12/31/22 20:00 12/31/22 20:00 Temperature 97.0 F L Pulse Rate
[2023-01-01] MEDS: HYDROcodone/acetaminophen (*CRX) 5-325 MG TABLET 1 TAB PO ×2 (13:54→20:21)
[2023-01-01] MEDS: methocarbamoL 750 MG TABLET 1500 MG PO (20:21)
[2023-01-02] VITALS (8 sets, daily range): BP systolic 124–159; BP diastolic 84–106; PULSE 66–81; RESP 16–20; TEMP 36.2–36.7; O2SAT 93–96
[2023-01-02 05:15] LABS: Basophils Percent Auto 0.4 % (0.2-1.2); Eosinophils Absolute Auto 0.2 K/mm3 (0-0.3); Eosinophils Percent Auto 2.7 % (0-4.4); Hematocrit 41.5 % (37.0-47.0); Immature Granulocyte Absolute 0.02 K/mm3 (0.00-0.031); Immature Granulocyte Percent A 0.3 % (0-0.5); Lymphocytes Absolute Auto 2.62 K/mm3 (0.9-3.2); Lymphocytes Percent Auto 36.8 % (18.3-44.2); Mean Corpuscular HGB Conc 33.7 g/dl (32-36); Mean Corpuscular Hemoglobin 30.6 pg (26-34); Mean Corpuscular Volume 90.6 fl (80-100); Mean Platelet Volume 9.8 fl (7.4-10.4); Monocytes Absolute Auto 0.7 K/mm3 (0.1-0.6); Monocytes Percent Auto 9.3 % (2.6-8.5); Neutrophils Absolute Auto 3.6 K/mm3 (1.3-6.7); Neutrophils Percent Auto 50.5 % (45.5-73.1); Platelet Count Result 240 k/mm3 (150-375); Red Blood Count 4.58 M/mm3 (4.2-5.4); Red Cell Distribution Width 12.9 % (11.5-14.5); White Blood Count 7.1 K/mm3 (4.5-10.0)
[2023-01-02 05:28] LABS: Alanine Aminotransferase 32 U/L (6-35); Albumin Level 3.9 g/dL (3.5-5.1); Alkaline Phosphatase 68 U/L (38-126); Anion Gap 5 mmol/L (8-16); Aspartate Amino Transferase 25 U/L (14-36); Bilirubin,Total 0.6 mg/dL (0.2-1.3); Blood Urea Nitrogen 16 mg/dL (7-17); Calcium 8.5 mg/dL (8.4-10.2); Carbon Dioxide 27 mmol/L (22-30); Chloride 105 mmol/L (98-107); Estimated CRCL calculation 89 ml/min; Estimated Glomerular Filt Rate > 60; Glucose 84 mg/dL (65-110); Magnesium 2.1 mg/dL (1.6-2.3); Potassium 3.5 mmol/L (3.4-5.0); Sodium 137 mmol/L (137-145)
[2023-01-02] MEDS: MULTIVITAMINS THERAPEUTIC TAB (*BKC) 1 TABLET PO (08:22)
[2023-01-02] MEDS: HYDROcodone/acetaminophen (*CRX) 5-325 MG TABLET 1 TAB PO (08:22)
[2023-01-02] MEDS: amLODIPine BESYLATE 5 MG TABLET 10 MG PO (08:22)
[2023-01-02] MEDS: PANTOPRAZOLE 40 MG TABLET PO (08:23)
[2023-01-02] MEDS: hydroCHLOROthiazide 12.5 MG CAPSULE PO ×2 (08:23→09:31)
[2023-01-02] MEDS: LOSARTAN POTASSIUM 25 MG TABLET 50 MG PO (08:33)
[2023-01-02] MEDS: MORPHINE SULFATE (*CRX) 2 MG/ML INJ 1 MG IV PUSH (09:31)
--- NOTE | 2023-01-02 13:15 | PCCCNOTE ---
On 01/02/23, the student, [Claudia Paniagua], provided care and completed [facility] documentation on this patient. I have reviewed the student's documentation and agree with the findings.
--- NOTE | 2023-01-02 13:30 | PM.DS ---
DS: Admitting Diagnosis Discharge Date 01/02/23 Admitting Diagnosis HTN urgency DS: Discharge Diagnosis Discharge Diagnosis (1) Hypertensive urgency: Code(s): I16.0 - Hypertensive urgency Status: Acute (2) Right sided abdominal pain: Code(s): R10.9 - Unspecified abdominal pain Status: Acute DS: Summary Hospital Course Hospital Course: This is a 42-year-old female with historically poorly controlled hypertension who presented to the emergency department from her doctor's office for evaluation after she was found to have significantly elevated blood pressures in conjunction with blurry vision and headaches. She was on lisinopril-hydrochlorothiazide but that apparently had no effect on her blood pressure and she was started on amlodipine and hydralazine while in the hospital at [facility] this year in which she was treated for a kidney infection. She is compliant with her medications but her blood pressures remain poorly controlled. Her blood pressure was as high as 223/129 and she was directed to the ER where she was given IV hydralazine with some improvement. Her biggest complaint however is that of continued right-sided pain which seems to be related to meals.? She has had an upper quadrant ultrasound done which was unremarkable. For the blood pressure patient was started on hydrochlorothiazide and losartan. She had a renal artery duplex which showed possibility of a right renal artery stenosis. Patient underwent a CTA which is reported as: 1. Normal caliber abdominal aorta with minimal nonhemodynamically significant plaque in the infrarenal aorta. The arteries arising from the aorta including the bilateral renal arteries and accessory left renal artery all appear widely patent. Patient's blood pressure is much better now. it is not within normal limits but it is much improved. Patient has been advised that she needs to keep log of her blood pressure readings at home so her meds can be adjusted by primary care physician. She has right-sided tenderness to palpation upon her lower ribs, it is likely musculoskeletal. Patient is clinically stable and is being discharged home Time Spent with Patient Time attestation: Total time spent providing and/or coordinating discharge services: Exam Narrative: General: Well-developed, nontoxic-appearing female sitting up in bed. HEENT: PERRL, EOMI. Sclera anicteric. Oral mucosa moist. Neck: Supple. No carotid bruits. Respiratory: Lungs are clear to auscultation bilaterally. No respiratory distress Cardiovascular: Regular rate and rhythm with S1-S2. Gastrointestinal: Abdomen is soft, tender right upper quadrant, and nondistended with positive bowel sounds. Negative Palm sign. Skin: Warm and dry. No rash or lesions on limited exam. Extremities: No cyanosis, clubbing, or edema. Radial and pedal pulses intact. Neurological: Alert. Cranial nerves 2-12 are grossly intact. No gross focal deficits to casual conversation. Psychiatric: Pleasant and cooperative with normal mood and affect. Judgment and insight intact. DS: Data Data Completed and Pending Labs on day of discharge: Labs from last 24 hours 01/02/23 04:23 WBC 7.1 RBC 4.58 Hgb 14.0 Hct 41.5 MCV 90.6 MCH 30.6 MCHC 33.7 RDW 12.9 Plt Count 240 MPV 9.8 Immature Gran % (Auto) 0.3 Neut % (Auto) 50.5 Lymph % (Auto) 36.8 [place] % (Auto) 9.3 H Eos % (Auto) 2.7 Baso % (Auto) 0.4 Lymph # (Auto) 2.62 [place] # (Auto) 0.7 H Eos # (Auto) 0.2 Baso # (Auto) 0.0 Abs Immat Gran (auto) 0.02 Absolute Neuts (auto) 3.6 Absolute Nucleated RBC 0.0 Nucleated RBC % 0.0 Sodium 137 Potassium 3.5 Chloride 105 Carbon Dioxide 27 Anion Gap 5 L BUN 16 Creatinine 0.70 Estim Creat Clear Calc 89 Estimated GFR > 60 Glucose 84 Calcium 8.5 Magnesium 2.1 Total Bilirubin 0.6 AST 25 ALT 32 Alkaline Phosphatase 68 Total Protein 7.0 Albumin 3.9 Discharge
== END 2023-01-02 14:23 | disposition home or self-care (01) ==
LOC: ANHED 12:35 → ANHIMU 14:30
PROVIDERS: Internal Medicine; Physician Assistant; Admitting Provider Student in an Organized Health Care Education/Training Program; Emergency Provider Emergency Medicine; PCP Internal Medicine; Visit Provider Hospitalist
DX: I16.0 Hypertensive urgency (principal); R94.31 Abnormal electrocardiogram [ECG] [EKG]; R10.9 Unspecified abdominal pain; K76.0 Fatty (change of) liver, not elsewhere classified; R51.9 Headache, unspecified; H43.399 Other vitreous opacities, unspecified eye; F32.A Depression, unspecified; K21.9 Gastro-esophageal reflux disease without esophagitis; G62.9 Polyneuropathy, unspecified; E66.9 Obesity, unspecified; Z68.31 Body mass index [BMI] 31.0-31.9, adult; G47.53 Recurrent isolated sleep paralysis; F17.210 Nicotine dependence, cigarettes, uncomplicated; Z79.1 Long term (current) use of non-steroidal anti-inflammatories (NSAID); Z79.891 Long term (current) use of opiate analgesic; Z79.899 Other long term (current) 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; Z81.8 Family history of other mental and behavioral disorders; Z82.49 Family history of ischemic heart disease and other diseases of the circulatory system
CPT/HCPCS: 36415; 71046; 74175; 76705; 80048; 80053; 80307; 83735; 84443; 84484; 85025; 85610; 85730; 93005; 93306; 93976; 96374; 96375; 99285; A9270; G0378; G0379; J0360; J2270; J2405; Q9967

== ENCOUNTER 2023-02-07 09:28 | Outpatient (CLI) | payer OTHER, SELFPAY ==
--- NOTE | ~2023-02-07 | NM_ITS ---
EXAMINATION: NM hepatobiliary wo pharm DATE: 02/07/2023 11:59 INDICATION: Right upper quadrant abdominal pain COMPARISON: None. TECHNIQUE: 5 mCi Tc-99m mebrofenin (Choletec) was administered intravenously. Scintigraphic images o f the abdomen were obtained for one hour. At the 1 hour time point, the patient drank 8 oz Ensure, an d imaging was continued for 60 minutes. Gallbladder ejection fraction was calculated by the technolog ist. FINDINGS: There is normal clearance of radiotracer from the blood pool. There is homogeneous tracer u ptake by the liver. Activity progresses to the bowel and gallbladder. The gallbladder ejection fract ion (GBEF) is 46%. Note that with this technique, normal GBEF >= 33%. IMPRESSION: 1. Normal hepatobiliary scan. Reviewed, dictated and finalized at location A.
== END 2023-02-07 09:29 | disposition home or self-care (01) ==
PROVIDERS: PCP Internal Medicine; Visit Provider Clinical Nurse Specialist
DX: R10.11 Right upper quadrant pain (principal)
CPT/HCPCS: 78226; A9537

== ENCOUNTER 2023-03-12 18:34 | Emergency (ER) | payer OTHER, SELFPAY ==
--- NOTE | ~2023-03-12 | XR_ITS ---
EXAMINATION: XR chest 1V Exam Date/Time: 03/12/2023 20:05 CDT HISTORY: shortness of breath WITH FEELING OF ABDOMINAL FULLNESS Comparison: 12/31/2022. RESULT: Lines, tubes, and devices: None. Lungs and pleura: Clear. Cardiomediastinal silhouette: Stable. Other: No dilated small bowel in the upper abdomen. No acute osseous finding. IMPRESSION: No acute cardiopulmonary process. Small bowel ileus or obstruction. Consider three-view radiograph series for further evaluation. Reviewed, dictated and finalized at location K. IMPRESSION: No acute cardiopulmonary process. Small bowel ileus or obstruction. Consider three-view radiograph series for fur ther evaluation.
--- NOTE | ~2023-03-12 | CT_ITS ---
EXAMINATION: CT abdomen pelvis wo con DATE: 03/12/2023 19:59 INDICATION: abdominal pain/flank pain hx of stones TECHNIQUE: Computed tomography (CT) of the abdomen and pelvis was performed without intravenous contr ast. Automated exposure control and iterative reconstruction technique were employed. The dose-length product was 558.14 mGy-cm. COMPARISON: 12/25/2022. FINDINGS: Lower thorax: Scattered areas of atelectasis. Liver: Diffuse fatty infiltration. Biliary/Gallbladder: Gallbladder is partially contracted. No bile duct dilation. Pancreas: No mass or duct dilation. Spleen: Normal. Adrenals:No mass. Kidneys: No suspicious mass. No hydronephrosis. Punctate nonobstructing left midpole calcification GI tract: No small or large bowel dilation. Normal appendix. Diverticulosis without diverticulitis. Mesentery/Peritoneum: No ascites, mass, or free air. Retroperitoneum: No mass. Atherosclerotic abdominal aortic and/or arterial calcifications. Pelvis: Pelvic organs are within normal limits. Stable benign left ovarian cyst. Soft Tissues: Soft tissues and body wall unremarkable. Bones: No acute osseous finding. IMPRESSION: Hepatic steatosis. Left nephrolithiasis. No evidence of obstructive uropathy. Reviewed, dictated and finalized at location K.
[2023-03-12 18:37] VITALS: BP 146/102; PULSE 87; RESP 20; TEMP 36.6; O2SAT 100
[2023-03-12 19:15] LABS: Basophils Percent Auto 0.5 % (0.2-1.2); Eosinophils Absolute Auto 0.2 K/mm3 (0-0.3); Eosinophils Percent Auto 1.9 % (0-4.4); Hematocrit 40.7 % (37.0-47.0); Hemoglobin 14.1 g/dL (12.0-15.0); Immature Granulocyte Absolute 0.02 K/mm3 (0.00-0.031); Immature Granulocyte Percent A 0.2 % (0-0.5); Lymphocytes Absolute Auto 3.53 K/mm3 (0.9-3.2); Lymphocytes Percent Auto 40.9 % (18.3-44.2); Mean Corpuscular HGB Conc 34.6 g/dl (32-36); Mean Corpuscular Hemoglobin 30.9 pg (26-34); Mean Corpuscular Volume 89.3 fl (80-100); Mean Platelet Volume 9.6 fl (7.4-10.4); Monocytes Absolute Auto 0.8 K/mm3 (0.1-0.6); Monocytes Percent Auto 9.4 % (2.6-8.5); Neutrophils Absolute Auto 4.1 K/mm3 (1.3-6.7); Neutrophils Percent Auto 47.1 % (45.5-73.1); Platelet Count Result 281 k/mm3 (150-375); Red Blood Count 4.56 M/mm3 (4.2-5.4); Red Cell Distribution Width 12.8 % (11.5-14.5); White Blood Count 8.6 K/mm3 (4.5-10.0)
[2023-03-12 19:25] VITALS: PULSE 86; RESP 18; O2SAT 97
[2023-03-12 19:27] LABS: Alanine Aminotransferase 46 U/L (6-35); Albumin Level 4.4 g/dL (3.5-5.1); Alkaline Phosphatase 68 U/L (38-126); Anion Gap 7 mmol/L (8-16); Aspartate Amino Transferase 37 U/L (14-36); Bilirubin,Total 0.3 mg/dL (0.2-1.3); Blood Urea Nitrogen 10 mg/dL (7-17); Carbon Dioxide 22 mmol/L (22-30); Chloride 104 mmol/L (98-107); Estimated CRCL calculation 84 ml/min; Estimated Glomerular Filt Rate > 60; Glucose 82 mg/dL (65-110); Potassium 3.8 mmol/L (3.4-5.0); Sodium 133 mmol/L (137-145)
--- NOTE | 2023-03-12 19:44 | ECG_ITS ---
Measurements Intervals [place] Rate: 78 P: -8 TX: 178 QRS: -3 QRSD: 105 T: 15 QT: 397 QTc: 452 Interpretive Statements SINUS RHYTHM VOLTAGE CRITERIA FOR LVH [MEETS CRITERIA IN ONE OF: R(aVL), S(V1), R(V5), R(V5/V6)+S(V1)] BORDERLINE ECG COMPARED TO ECG 12/31/2022 11:14:10 NO SIGNIFICANT CHANGES Electronically Signed On 03-13-2023 7:44:56 CDT by Damian Begum M.D.
[2023-03-12 19:51] LABS: Appearance Urine Clear (Clear); Bilirubin Urine Negative (Negative); Blood Urine Negative (Negative); Color Urine Yellow (Yellow); Glucose Urine UA Negative (Negative); Ketones Urine Negative (Negative); Leukocyte Esterase Ur Negative LEU/UL (Negative); Nitrate Urine Negative (Negative); Protein Urine Negative (Negative); Specific Grav Ur 1.028 (1.001-1.035); Urobilinogen Urine 0.2 mg/dL (<2.0); pH Urine 5.5 (5.0-9.0)
[2023-03-12 19:56] LABS: Add Urine Microscopic? NO
[2023-03-12 20:01] LABS: Lipase 95 U/L (23-300)
[2023-03-12 20:15] LABS: NT Pro B Type Natriuretic Pept < 20 pg/mL (19.9-100); Troponin I < 0.012 ng/mL (0.000-0.034)
[2023-03-12 20:20] LABS: Beta HCG Quantitative < 2.39 mIU/ML
--- NOTE | 2023-03-12 20:36 | ED.GENADULT ---
HPI - General Adult General Chief complaint: Urogenital-Female Stated complaint: suprapubic pain Time Seen by Provider: 03/12/23 19:33 History of Present Illness HPI narrative: Patient 43-year-old female who presents the emergency department with chief complaint of abdominal discomfort and feeling bloated. Patient reports that she started having some discomfort in her bladder and reports that she was concerned that she may have a kidney stone the patient reports she started drinking lots of fluids and had multiple bottles of water and drink about 80 ounces of water today patient reports that she feels bloated and feels as though her abdomen is full and reports she feels like she is a little swollen. Related Data Home Medications Medication Instructions Recorded Confirmed multivitamin 1 tablet PO DAILY 04/04/22 01/30/23 omeprazole 20 mg capsule,delayed 20 mg PO DAILY 04/04/22 01/30/23 release acetaminophen 650 mg 650 mg PO Q8H 12/31/22 01/30/23 tablet,extended release ibuprofen 800 mg tablet 200 mg PO TID PRN pain 12/31/22 01/30/23 methocarbamol 750 mg tablet 1,500 mg PO HS 12/31/22 01/30/23 Allergies Allergy/AdvReac Type Severity Reaction Status Date / Time ketorolac [From Toradol] Allergy Headache Verified 01/30/23 07:59 tramadol AdvReac Mild VOMITING/HE Verified 01/30/23 07:59 ADACHE Review of Systems Review of Systems: A 10 system review of systems was completed on the patient and is negative except for what is stated in the HPI. Nursing and ancillary documentation was reviewed. PMFSH Past Medical History Medical History Depression Gastroesophageal reflux disease Hypertension Multiple kidney stones Obesity Seasonal allergies Sleep paralysis, recurrent isolated Smoker Surgical History Surgical History History of section 2001, 2002, 2010 History of endometrial ablation (2009) History of hysterectomy (2015) History of open reduction and internal fixation (ORIF) procedure (2012) Left elbow. History of tubal ligation Status post cystoscopy with ureteral stent placement Family History Family History Mother Diabetes mellitus Depression Alcoholism Father Hypertension Sibling Congenital heart disease Son Asthma Grandparent Diabetes mellitus Cerebrovascular accident Social History Social History Social History: Surrogate medical decision maker: Bang Luke, spouse. Code status: Full code. Smoking packs per day: 0.5 Smoking cigarettes per day: 10.0 Years smoked: 30 Smoking pack-years: 15.00 Smoking status: Current every day smoker Tobacco type: cigarettes Alcohol intake: current Alcohol use details: Social alcohol use in moderation. Substance use: never Substance use type: does not use Lack of Transportation: No Lack of Food: Never True Current Housing: I Have Housing Concerned About Future Housing: No Difficulty Paying Gas/Electric Bills: No Difficulty Paying for Meds: No Currently Unemployed: No Education: High School Diploma/GED Difficulty w/ Childcare or Family Care: No Living arrangements: with family Spiritual care concerns: No Exam Narrative: GENERAL: Well-appearing, well-nourished, and in no acute distress. HEAD: Normocephalic, atraumatic. EYES: PERRLA and EOMI. ENT: Nares clear, no rhinorrhea or epistaxis. Mucous membranes moist. NECK: Supple. CHEST: Clear to auscultation. No respiratory distress. HEART: Regular rate and rhythm. No murmur heard. Normal peripheral pulses. ABDOMEN: Soft, nontender, nondistended, normal active bowel sounds. EXTREMITIES: Normal range of motion. No edema. SKIN: Warm, dry, no rash. NEURO: No focal deficits. Alert and oriented x3. PSYCH: Normal mood and affect. Course Vital
== END 2023-03-12 20:52 | disposition home or self-care (01) ==
PROVIDERS: Emergency Medicine; Emergency Provider Emergency Medicine; PCP Internal Medicine
DX: R10.84 Generalized abdominal pain (principal); R39.89 Other symptoms and signs involving the genitourinary system; I10 Essential (primary) hypertension; F17.210 Nicotine dependence, cigarettes, uncomplicated
CPT/HCPCS: 36415; 71045; 74176; 80053; 81003; 83690; 83880; 84484; 84702; 85025; 93005; 99284

== ENCOUNTER 2023-03-19 10:42 | Outpatient (CLI) | payer OTHER, SELFPAY ==
[2023-03-19 11:23] LABS: CRP < 0.5 mg/dL (<1.0)
[2023-03-23 10:01] LABS: Immunoglobulin A 451 mg/dL (47-310); TTG IGA AB <1.0 U/mL (<15.0)
[2023-03-25 22:10] LABS: ANCA Screen Negative (Negative); Myeloperoxidase Ab <1.0 AI (<1.0); Proteinase-3 Ab <1.0 AI (<1.0); S cerevisiae Ab (IgA) 11.4 U (<=20.0); S cerevisiae Ab (IgG) 6.6 U (<=20.0)
== END 2023-03-19 10:43 | disposition home or self-care (01) ==
LOC: ANHLAB 10:44
PROVIDERS: PCP Internal Medicine; Visit Provider Internal Medicine Gastroenterology
DX: R19.4 Change in bowel habit (principal)
CPT/HCPCS: 36415; 82784; 86036; 86140; 86364; 86671

== ENCOUNTER 2023-04-20 09:29 | Outpatient (CLI) | payer OTHER, SELFPAY ==
[2023-04-20 09:58] LABS: Alanine Aminotransferase 73 U/L (6-35); Albumin Level 4.3 g/dL (3.5-5.1); Alkaline Phosphatase 59 U/L (38-126); Amylase 64 U/L (30-110); Anion Gap 8 mmol/L (8-16); Aspartate Amino Transferase 52 U/L (14-36); Bilirubin,Total 0.5 mg/dL (0.2-1.3); Blood Urea Nitrogen 13 mg/dL (7-17); Calcium 8.6 mg/dL (8.4-10.2); Carbon Dioxide 23 mmol/L (22-30); Chloride 107 mmol/L (98-107); Estimated Glomerular Filt Rate > 60; Glucose 90 mg/dL (65-110); Potassium 4.3 mmol/L (3.4-5.0); Sodium 138 mmol/L (137-145)
== END 2023-04-20 09:30 | disposition home or self-care (01) ==
LOC: ANHSURGERY 09:31
PROVIDERS: Anesthesiology; PCP Internal Medicine; Visit Provider Surgery
DX: K81.1 Chronic cholecystitis (principal); I10 Essential (primary) hypertension; Z01.818 Encounter for other preprocedural examination
CPT/HCPCS: 36415; 80048; 80076; 82150; 86850; 86900; 86901

== ENCOUNTER 2023-04-22 14:55 | Emergency (ER) | payer OTHER, SELFPAY ==
[2023-04-22] VITALS (12 sets, daily range): BP systolic 173–206; BP diastolic 110–140; PULSE 76–97; RESP 13–23; TEMP 36.8; O2SAT 96–100
--- NOTE | ~2023-04-22 | CT_ITS ---
EXAMINATION: CT abdomen pelvis w con DATE: 04/22/2023 21:56 INDICATION: RUQ pain, n/v, hx GB issues TECHNIQUE: Computed tomography (CT) of the abdomen and pelvis was performed with 100 mL Omnipaque-350 intravenous contrast. Automated exposure control and iterative reconstruction technique were employe d. The dose-length product was 650.04 mGy-cm. COMPARISON: 03/12/2023. FINDINGS: Lower thorax: Enlarged, diffusely fatty infiltrated Liver: Normal. Biliary/Gallbladder: Gallbladder is normal. No bile duct dilation. Pancreas: No mass or duct dilation. Spleen: Normal. Adrenals:No mass. Kidneys: Punctate bilateral nonobstructing calculi. Subcentimeter right midpole hypodensity, too smal l to characterize but most likely represents a cyst No suspicious mass, obstructing stone, or hydrone phrosis. GI tract: No small or large bowel dilation. Normal appendix. Diverticulosis without diverticulitis. Mesentery/Peritoneum: No ascites, mass, or free air. Retroperitoneum: No mass. Atherosclerotic abdominal aortic and/or arterial calcifications. Pelvis: Surgically absent uterus. The right ovary is not confidently visualized and may be surgically absent. 2.7 cm simple appearing left appearing cyst. Normal appearing urinary bladder Soft Tissues: Soft tissues and body wall unremarkable. Bones: No acute osseous finding. IMPRESSION: Hepatomegaly with steatosis. Nonobstructive left nephrolithiasis. Mild diverticulosis, without CT evidence of diverticulitis. Simple appearing 2.7 cm left ovarian cyst, requiring no additional imaging at this time. Reviewed, dictated and finalized at location K. IMPRESSION: Hepatomegaly with steatosis. Nonobstructive left nephrolithiasis. Mild diverticulosis, without CT evidence of diverticulitis. Simple appearing 2.7 cm left ovarian cyst, requiring no additional imaging at t his time.
--- NOTE | 2023-04-22 19:09 | ECG_ITS ---
Measurements Intervals [place] Rate: 88 P: 18 NE: 181 QRS: 12 QRSD: 100 T: 28 QT: 377 QTc: 457 Interpretive Statements SINUS RHYTHM DELAYED PRECORDIAL R/S TRANSITION VOLTAGE CRITERIA FOR LVH BORDERLINE ECG COMPARED TO ECG 03/12/2023 19:51:14 NO SIGNIFICANT CHANGES Electronically Signed On 04-22-2023 19:44:09 CDT by Leonel Méndez D.O.
[2023-04-22 19:35] LABS: Appearance Urine Clear (Clear); Blood Urine Negative (Negative); Color Urine Yellow (Yellow); Glucose Urine UA Negative (Negative); Ketones Urine Negative (Negative); Nitrate Urine Negative (Negative); Protein Urine Negative (Negative); Specific Grav Ur 1.015 (1.001-1.035); pH Urine 5.5 (5.0-9.0)
[2023-04-22 19:36] LABS: Bilirubin Urine Negative (Negative); Leukocyte Esterase Ur Negative LEU/UL (Negative); Urobilinogen Urine 0.2 mg/dL (<2.0)
[2023-04-22 19:38] LABS: Basophils Percent Auto 0.3 % (0.2-1.2); Eosinophils Absolute Auto 0.1 K/mm3 (0-0.3); Eosinophils Percent Auto 1.4 % (0-4.4); Hematocrit 40.9 % (37.0-47.0); Hemoglobin 14.3 g/dL (12.0-15.0); Immature Granulocyte Absolute 0.02 K/mm3 (0.00-0.031); Immature Granulocyte Percent A 0.2 % (0-0.5); Lymphocytes Absolute Auto 2.22 K/mm3 (0.9-3.2); Lymphocytes Percent Auto 25.1 % (18.3-44.2); Mean Corpuscular Hemoglobin 31.5 pg (26-34); Mean Corpuscular Volume 90.1 fl (80-100); Mean Platelet Volume 9.9 fl (7.4-10.4); Monocytes Absolute Auto 0.7 K/mm3 (0.1-0.6); Monocytes Percent Auto 7.5 % (2.6-8.5); Neutrophils Absolute Auto 5.8 K/mm3 (1.3-6.7); Neutrophils Percent Auto 65.5 % (45.5-73.1); Platelet Count Result 224 k/mm3 (150-375); Red Blood Count 4.54 M/mm3 (4.2-5.4); White Blood Count 8.9 K/mm3 (4.5-10.0)
[2023-04-22 19:45] LABS: Alanine Aminotransferase 66 U/L (6-35); Albumin Level 4.3 g/dL (3.5-5.1); Alkaline Phosphatase 68 U/L (38-126); Anion Gap 9 mmol/L (8-16); Aspartate Amino Transferase 50 U/L (14-36); Bilirubin,Total 0.4 mg/dL (0.2-1.3); Blood Urea Nitrogen 14 mg/dL (7-17); Calcium 9.2 mg/dL (8.4-10.2); Carbon Dioxide 23 mmol/L (22-30); Chloride 108 mmol/L (98-107); Estimated CRCL calculation 104 ml/min; Estimated Glomerular Filt Rate > 60; Glucose 85 mg/dL (65-110); Lipase 120 U/L (23-300); Potassium 3.6 mmol/L (3.4-5.0); Sodium 140 mmol/L (137-145)
[2023-04-22 19:49] LABS: Add Urine Microscopic? NO
--- NOTE | 2023-04-22 20:42 | ED.ABDPAIN ---
HPI - Abdominal Pain General Chief Complaint: Abdominal Pain Stated Complaint: abdominal pain Time Seen by Provider: 04/22/23 19:07 Source: patient and old records reviewed Mode of arrival: ambulatory Limitations: no limitations History of Present Illness HPI narrative: Patient is a 43-year-old female who presents to the ED with report of right upper quadrant abdominal pain. Patient reports she has had chronic issues with her gallbladder. She is scheduled to undergo elective cholecystectomy with Dr. Boyd on , 04/25. Patient reports she developed worsening pain in her right upper quadrant this morning, which has been constant all day. She tried taking Tylenol, but was unable to keep this down. She reports frequent vomiting today with persistent nausea upon my evaluation. She contacted Dr. Boyd's office today and was referred here for further evaluation. Patient denies any diarrhea, constipation, fevers, urinary symptoms. Related Data Home Medications Medication Instructions Recorded Confirmed multivitamin 1 tablet PO DAILY 04/04/22 04/19/23 omeprazole 20 mg capsule,delayed 20 mg PO DAILY 04/04/22 04/19/23 release acetaminophen 650 mg 650 mg PO Q8H PRN Pain 12/31/22 04/19/23 tablet,extended release ibuprofen 800 mg tablet 200 mg PO TID PRN pain 12/31/22 04/19/23 dicyclomine 10 mg capsule 10 mg PO BID 04/19/23 04/19/23 Allergies Allergy/AdvReac Type Severity Reaction Status Date / Time ketorolac [From Toradol] Allergy Headache Verified 04/22/23 19:13 tramadol AdvReac Mild VOMITING/HE Verified 04/22/23 19:13 ADACHE Review of Systems Review of Systems: CONSTITUTIONAL: Denies fever, chills, or sweats. CARDIOVASCULAR: Denies chest pain. RESPIRATORY: Denies dyspnea. GASTROINTESTINAL: See HPI. GENITOURINARY: Denies dysuria or hematuria. MUSCULOSKELETAL: Denies back pain, joint pain, or myalgia. NEUROLOGIC: Denies headache, numbness, or weakness. All systems reviewed & are unremarkable except as noted in HPI and below PMFSH Past Medical History Medical History Depression Gastroesophageal reflux disease Hypertension Multiple kidney stones Obesity Seasonal allergies Sleep paralysis, recurrent isolated Smoker Surgical History Surgical History History of section 2000, 2002, 2010 History of endometrial ablation (2010) History of hysterectomy (2016) History of open reduction and internal fixation (ORIF) procedure (2013) Left elbow. History of tubal ligation Status post cystoscopy with ureteral stent placement Family History Family History Mother Diabetes mellitus Depression Alcoholism Father Hypertension Sibling Congenital heart disease Son Asthma Grandparent Diabetes mellitus Cerebrovascular accident Social History Social History Social History: Surrogate medical decision maker: Bang Luke, spouse. Code status: Full code. Smoking packs per day: 0.5 Smoking cigarettes per day: 10.0 Years smoked: 25 Smoking pack-years: 12.50 Smoking status: Current every day smoker Tobacco type: cigarettes Alcohol intake: never Alcohol use details: Social alcohol use in moderation. Substance use: never Substance use type: does not use Lack of Transportation: No Lack of Food: Never True Current Housing: I Have Housing Concerned About Future Housing: No Difficulty Paying Gas/Electric Bills: No Difficulty Paying for Meds: No Currently Unemployed: No Education: High School Diploma/GED Difficulty w/ Childcare or Family Care: No Living arrangements: with family Spiritual care concerns: No Exam Narrative: GENERAL: Well appearing, obese with BMI of 32.8, non-toxic, in no acute distress. HEAD: Normocephalic, atraumatic. NECK: Supple. No adenopathy,
[2023-04-22] MEDS: SODIUM CHLORIDE 0.9% IV 1,000 ML 999 ML IV CONT (21:02)
[2023-04-22] MEDS: MORPHINE SULFATE (*CRX) 4 MG/ML INJ IV PUSH (21:04)
[2023-04-22] MEDS: ONDANSETRON INJ 4 MG/2 ML VIAL IV PUSH ×2 (21:04→22:52)
[2023-04-22] MEDS: HYDROmorphone HCL INJ (*CRX) 1 MG/ML SYR 0.5 MG IV PUSH (22:52)
[2023-04-22] MEDS: LOSARTAN POTASSIUM 50 MG TABLET PO (22:53)
[2023-04-22] MEDS: amLODIPine BESYLATE 5 MG TABLET 10 MG PO (22:53)
== END 2023-04-22 23:30 | disposition home or self-care (01) ==
PROVIDERS: Emergency Provider Physician Assistant; PCP Internal Medicine
DX: K81.1 Chronic cholecystitis (principal); R10.11 Right upper quadrant pain; I10 Essential (primary) hypertension; K21.9 Gastro-esophageal reflux disease without esophagitis; E66.9 Obesity, unspecified; Z68.32 Body mass index [BMI] 32.0-32.9, adult; F17.210 Nicotine dependence, cigarettes, uncomplicated
CPT/HCPCS: 36415; 74177; 80053; 81003; 83690; 85025; 93005; 96361; 96374; 96375; 96376; 99284; A9270; J1170; J2270; J2405; J7030; Q9967

== ENCOUNTER 2023-04-25 01:20 | Day surgery (SDC) | payer OTHER, SELFPAY ==
[2023-04-19 15:24] VITALS: BMI 32.8
--- NOTE | 2023-04-19 15:39 | PC.NURSE ---
Report to the Outpatient Waiting Room, entrance under the green pavilion located off [facility], at time 0630__ on date _04/25/23__. Planned Procedure Time: __0830 . Time changes happen often and if your time is changed the preop area will call you the afternoon before. - You and your visitor will be asked to self-screen and do not enter if you have any COVID symptoms. - A mask is optional within the hospital at this time. Patients may have clear liquids (water, carbonated beverages, clear teas, apple juice) until 3 hours prior to surgery with a maximum of 20 ounces. - No food from midnight until time of surgery. Take the following medications with a SIP of water the morning of surgery: ___N/A DO NOT STOP ANY OF YOUR OTHER PRESCRIPTION MEDICATIONS PRIOR TO SURGERY ?EXCEPT THE FOLLOWING Medications to discontinue per physician _STOP VITAMINS AND IBUPROFFEN____04/22/23 Date to take last dose__04/22/23___ Please no make-up, nail hebrew, hairspray, perfume, deodorant, or body powder the day of surgery. No jewelry (including any body piercings) or valuables the day of surgery, leave them at home. Please take a shower or bath the night before, or the morning of, surgery with HIBICLENS or CHLORHEXIDINE GLUCONATE soap. Wear comfortable, loose fitting clothing. - Jewelry must be removed prior to entering the operating room. Rings and piercings that are not removed may be cut off. - The hospital will not accept responsibility for valuables. - Please leave all valuables, including medications, at home the day of surgery. If you are going home after surgery, a licensed ambulance driver must drive you home. - NO public transportation without another adult if you receive anesthesia. - We recommend that an adult stay with you for 24 hours following discharge. - We also recommend that you do not drive, make important decision, drink alcoholic beverages, or take any drugs that were not prescribed by your health care provider for at least 24 hours after your discharge time. Follow any additional instructions given to you from your surgeon. If you or anyone in your household have experienced Covid symptoms in the past week, please notify your surgeon or the nurse liaison at the phone number below for possible testing. Telephone instructions given to __TITA__and asked if any additional questions and then verbalized understanding. Patient advised to call surgeon office or pre surgery nurse liaison [phone] if any additional questions.
[2023-04-25] VITALS (11 sets, daily range): BP systolic 114–188; BP diastolic 73–132; PULSE 66–83; RESP 12–19; TEMP 36.1–36.4; O2SAT 99–100
[2023-04-25] MEDS: ACETAMINOPHEN 500 MG TABLET 1000 MG PO (07:02)
[2023-04-25] MEDS: hydrALAZINE HCL 20 MG/ML VIAL 10 MG IV PUSH (07:18)
--- NOTE | 2023-04-25 07:25 | WPDHPUPDATE1 ---
History and Physical Update Update Date/Time: 04/25/23 07:25 History and Physical has been reviewed, including an updated exam of the patient. There are NO changes in the patient's condition. Risks, benefits, and alternatives have been discussed and questions answered. Patient agrees to proceed with procedure.
[2023-04-25] MEDS: LABETALOL HCL INJ 100 MG/20 ML VIAL IV PUSH (08:09)
--- NOTE | 2023-04-25 08:33 | WPDANESEPPF ---
Anes - Initial Pre Proc Eval Procedure: Operation Date: 04/25/23 08:30 Proposed Procedures p Laparoscopic Cholecystectomy - Naomie Boyd MD Date/Time: 04/25/23 08:33 Surgeon: Naomie Boyd MD Pre Op Diagnosis: chronic cholecystitis Patient Data Age: 43 Gender: F Height: 1.6 m Weight: 84.4 kg Last Vital Signs Temp 36.4 C 04/25/23 06:43 Pulse 76 04/25/23 06:43 Resp 16 04/25/23 06:43 BP 167/107 H 04/25/23 08:31 Pulse Ox 100 04/25/23 06:43 O2 Del Method Room Air 04/25/23 06:43 Allergies Allergy/AdvReac Type Severity Reaction Status Date / Time ketorolac [From Toradol] Allergy Headache Verified 04/25/23 06:51 tramadol AdvReac Mild VOMITING/HE Verified 04/25/23 06:51 ADACHE Home Medications Medication Instructions Recorded Confirmed Type multivitamin 1 tablet PO DAILY 04/04/22 04/25/23 History omeprazole 20 mg capsule,delayed 20 mg PO DAILY 04/04/22 04/25/23 History release ondansetron 4 mg disintegrating 4 mg PO Q8H PRN nausea and 08/20/22 04/25/23 Rx tablet vomiting #30 tabs acetaminophen 650 mg 650 mg PO Q8H PRN Pain 12/31/22 04/25/23 History tablet,extended release ibuprofen 800 mg tablet 200 mg PO TID PRN pain 12/31/22 04/25/23 History hydrochlorothiazide 25 mg tablet 25 mg PO QAM #90 tabs 02/08/23 04/25/23 Rx losartan 50 mg tablet 50 mg PO BID #180 tabs 02/08/23 04/25/23 Rx dicyclomine 10 mg capsule 10 mg PO BID 04/19/23 04/25/23 History hydrocodone 5 mg-acetaminophen 325 1 tablet PO Q6H PRN pain #6 tabs 04/22/23 Rx mg tablet ondansetron 4 mg disintegrating 4 mg PO Q8H PRN nausea and 04/22/23 04/25/23 Rx tablet vomiting #10 tabs amlodipine 10 mg tablet 10 mg PO HS 04/25/23 04/25/23 History Patient hx anesthesia problems: none Family hx anesthesia problems: none Results Review: All pre-operative results and documents have been reviewed as part of the pre-operative evaluation. [facility] Past Medical History Medical History Depression Gastroesophageal reflux disease Hypertension Multiple kidney stones Obesity Seasonal allergies Sleep paralysis, recurrent isolated Smoker Surgical History Surgical History History of section 2000, 2001, 2009 History of endometrial ablation (2009) History of hysterectomy (2015) History of open reduction and internal fixation (ORIF) procedure (2012) Left elbow. History of tubal ligation Status post cystoscopy with ureteral stent placement Family History Family History Mother Diabetes mellitus Depression Alcoholism Father Hypertension Sibling Congenital heart disease Son Asthma Grandparent Diabetes mellitus Cerebrovascular accident Social History Social History Social History: Surrogate medical decision maker: Bang Luke, spouse. Code status: Full code. Smoking packs per day: 0.5 Smoking cigarettes per day: 10.0 Years smoked: 25 Smoking pack-years: 12.50 Smoking status: Current every day smoker Tobacco type: cigarettes Alcohol intake: never Alcohol use details: Social alcohol use in moderation. Substance use: never Substance use type: does not use Lack of Transportation: No Lack of Food: Never True Current Housing: I Have Housing Concerned About Future Housing: No Difficulty Paying Gas/Electric Bills: No Difficulty Paying for Meds: No Currently Unemployed: No Education: High School Diploma/GED Difficulty w/ Childcare or Family Care: No Living arrangements: with family Spiritual care concerns: No Anes - Eval Final PreProcedure Day of Procedure 04/25/23 08:33 Patient weight: obese Heart: regular rate and rhythm Lungs: clear to auscultation Airway: Mallampati scale class II Neurological: alert and oriented Last oral intake: >/= 8 hours ASA class
[2023-04-25] MEDS: ceFAZolin 2 GM/D5W 50 ML 2 GM/50 ML BAG IVPB (08:40)
[2023-04-25] MEDS: BUPIVACAINE/EPINEPHRINE 0.5% 50 ML VIAL 30 ML INFILTRATE (09:18)
--- NOTE | 2023-04-25 09:39 | W.PM.PROC2 ---
Procedure Note - Detailed Date of Procedure 04/25/23 Pre-op Diagnosis chronic cholecystitis Post-op Diagnosis Same Procedure Performed Laparoscopic cholecystectomy Surgeon Naomie Boyd MD Anesthesia General Indications 43-year-old female presented to the office complaining of postprandial right upper quadrant abdominal pain associated with nausea and vomiting. Workup including imaging significant for chronic cholecystitis. Findings chronic cholecystitis Description of Procedure The patient was taken to the operating room placed in the supine position. After adequate induction of general anesthesia, the patient was prepped and draped in normal sterile fashion. A time-out was then performed to verify the patient's identity as well as the procedure being performed. I then made a 5 mm incision in the infraumbilical region. Through this, a Veress needle was placed into the peritoneal cavity and CO2 gas was then insufflated. After adequate pneumoperitoneum was achieved, the Veress needle was removed and a 5 mm optiview trocar was placed through this incision under direct visualization. I then placed the laparoscope through this trocar site and under direct visualization placed a further 12 mm subxiphoid port as well as 2 additional 5 mm ports in the right upper abdomen. The gallbladder was then identified and was noted to be moderately inflamed and distended. I was able to place a grasper at the dome of the gallbladder and this was retracted anterior and cephalad up over the liver. A 2nd retractor was then placed at the infundibulum and retracted laterally, this allowed visualization of the triangle of Calot. I then was able to visualize the cystic duct in its entirety from its proximal insertion into the gallbladder, to its distal junction with the common hepatic/common bile duct junction. At this point, I carefully skeletonized the proximal cystic duct with the [place] dissector. I then clipped and transected the proximal cystic duct. Next I visualized the cystic artery. Again the artery was skeletonized, clipped, and transected. I then used the Bovie cautery to take down the peritoneal attachments of the gallbladder off the liver bed. Once the gallbladder specimen was completely detached, an endo-pouch was placed through the 12 mm port site. I then placed the gallbladder specimen into the Endo pouch and removed the endo-pouch from the 12 mm port site. The specimen will now be sent to pathology for further review. I then copiously irrigated the right upper quadrant. Some mild oozing was noted in the liver bed and this was controlled with the bovie cautery. Hemostasis was noted in the liver bed, the clips were noted to be in good position on both the cystic duct stump and the cystic artery stump. No other pathology was noted in the right upper quadrant. I then moved the laparoscope to the subxiphoid port. No iatrogenic injury or other pathology was noted in the lower abdomen. I then closed the 12 mm trocar site under direct visualization using the Alireza cone and 0 Vicryl suture. At this point, the abdomen was desufflated and all ports removed. All port sites were then closed with 4.O Monocryl subcuticular sutures. Dermabond was placed on each incision. The patient tolerated the procedure well, was extubated in the operating room postoperative and will be transferred to the recovery room in stable condition Estimated Blood Loss 10 Drains No Packing No Pathology Yes Complications No immediate complications Condition Stable Disposition PACU [facility] Billing Surgery - Charge Forward: Surgery Billing
[2023-04-25] MEDS: LACTATED RINGERS 1,000 ML 30 ML IV CONT (09:40)
[2023-04-25] MEDS: fentaNYL CITRATE INJ (*CRX) 100 MCG/2 ML VIAL 25 MCG IV PUSH ×8 (10:02→10:27)
[2023-04-25] MEDS: ONDANSETRON INJ 4 MG/2 ML VIAL IV PUSH (10:13)
[2023-04-25] MEDS: oxyCODONE HCL (*CRX) 5 MG TAB IR PO (10:47)
== END 2023-04-25 11:30 | disposition home or self-care (01) ==
PROVIDERS: PCP Internal Medicine; Visit Provider Surgery
PROC: 0FT44ZZ Resection of Gallbladder, Percutaneous Endoscopic Approach (ICD-10-PCS; CPT 47562; principal; 2023-04-25 08:30)
DX: K81.1 Chronic cholecystitis (principal); K76.0 Fatty (change of) liver, not elsewhere classified; I10 Essential (primary) hypertension; K21.9 Gastro-esophageal reflux disease without esophagitis; F17.210 Nicotine dependence, cigarettes, uncomplicated
CPT/HCPCS: 47562; 36415; 80048; 80076; 82150; 86850; 86900; 86901; 88304; A9270; J0360; J0690; J1100; J2250; J2405; J2704; J3010; J7030; J7120

== ENCOUNTER 2023-07-29 17:34 | Emergency (ER) | payer BC, MEDICAID, SELFPAY ==
[2023-07-29 18:06] VITALS: BP 215/125; PULSE 86; RESP 20; TEMP 36.9; O2SAT 98
== END 2023-07-30 | disposition left against medical advice (07) ==
LOC: ANHED 07-30 01:09
PROVIDERS: PCP Internal Medicine
DX: R10.9 Unspecified abdominal pain (principal)
CPT/HCPCS: 99199

== ENCOUNTER 2023-09-18 13:31 | Emergency (ER) | payer BC, MEDICAID, SELFPAY ==
[2023-09-18] VITALS (10 sets, daily range): BP systolic 202–232; BP diastolic 106–137; PULSE 67–110; RESP 15–20; TEMP 36.5–36.8; O2SAT 96–100
--- NOTE | ~2023-09-18 | US_ITS ---
EXAMINATION: US pelvic complete DATE: 09/18/2023 16:43 INDICATION: Left lower quadrant abdominal pain. TECHNIQUE: Multiple transabdominal sonographic images of the pelvis were obtained. COMPARISON: CT abdomen and pelvis 04/22/2023 FINDINGS: The uterus is absent. There is no free fluid in the pelvis. The right ovary is absent. The left ovary measures 3.5 x 3.9 x 3.1 cm. There is normal vascular flow in left ovary. IMPRESSION: 1. Normal left ovary. 2. Absent uterus and right ovary. Reviewed, dictated and finalized at location E. RONMENTAL MAINTENANCE WORKER
--- NOTE | ~2023-09-18 | CT_ITS ---
EXAMINATION: CT abdomen pelvis w con DATE: 09/18/2023 17:40 INDICATION: Left lower quadrant abdominal pain. TECHNIQUE: Computed tomography (CT) of the abdomen and pelvis was performed with 100 mL Omnipaque 350 intravenous contrast. Automated exposure control and iterative reconstruction technique were employe d. The dose-length product was 609.55 mGy-cm. COMPARISON: CT abdomen and pelvis 04/22/2023 FINDINGS: The visualized portions of the lung bases demonstrate mild atelectasis. No pleural effusion . The heart size is normal. No pericardial effusion. There is diffuse hepatic steatosis. There are ch anges of cholecystectomy. The spleen, pancreas, adrenal glands, and kidneys are normal. There is a 4 mm stone at left ureteropelvic junction. There are no dilated loops of bowel. The appendix is normal. Mild aortic atherosclerosis is noted. There are no pathologically enlarged lymph nodes. There is no free intraperitoneal fluid. There is a 2.3 cm dominant follicle in left ovary. There is mild thoracic and lumbar spondylosis. IMPRESSION: 1. 4 mm stone at left ureteropelvic junction. No hydronephrosis. Reviewed, dictated and finalized at location E. HEAD HAND
[2023-09-18 14:29] LABS: Appearance Urine Clear (Clear); Bilirubin Urine Negative (Negative); Blood Urine Negative (Negative); Color Urine Yellow (Yellow); Glucose Urine UA Negative (Negative); Ketones Urine Negative (Negative); Leukocyte Esterase Ur Negative LEU/UL (Negative); Nitrate Urine Negative (Negative); Protein Urine Negative (Negative); Urobilinogen Urine 0.2 mg/dL (<2.0); pH Urine 5.5 (5.0-9.0)
[2023-09-18 14:33] LABS: Add Urine Microscopic? NO
[2023-09-18 15:24] LABS: Basophils Absolute Auto 0.1 K/mm3 (0.0-0.1); Basophils Percent Auto 0.5 % (0.2-1.2); Eosinophils Absolute Auto 0.1 K/mm3 (0-0.3); Eosinophils Percent Auto 1.3 % (0-4.4); Hematocrit 40.5 % (37.0-47.0); Hemoglobin 14.3 g/dL (12.0-15.0); Immature Granulocyte Absolute 0.03 K/mm3 (0.00-0.031); Immature Granulocyte Percent A 0.3 % (0-0.5); Lymphocytes Absolute Auto 1.98 K/mm3 (0.9-3.2); Lymphocytes Percent Auto 20.2 % (18.3-44.2); Mean Corpuscular HGB Conc 35.3 g/dl (32-36); Mean Corpuscular Hemoglobin 31.2 pg (26-34); Mean Corpuscular Volume 88.2 fl (80-100); Mean Platelet Volume 9.5 fl (7.4-10.4); Monocytes Absolute Auto 0.7 K/mm3 (0.1-0.6); Monocytes Percent Auto 7.2 % (2.6-8.5); Neutrophils Absolute Auto 6.9 K/mm3 (1.3-6.7); Neutrophils Percent Auto 70.5 % (45.5-73.1); Platelet Count Result 237 k/mm3 (150-375); Red Blood Count 4.59 M/mm3 (4.2-5.4); Red Cell Distribution Width 12.1 % (11.5-14.5); White Blood Count 9.8 K/mm3 (4.5-10.0)
[2023-09-18 15:36] LABS: Alanine Aminotransferase 33 U/L (6-35); Albumin Level 3.8 g/dL (3.5-5.1); Alkaline Phosphatase 81 U/L (38-126); Anion Gap 7 mmol/L (8-16); Aspartate Amino Transferase 30 U/L (14-36); Bilirubin,Total 0.4 mg/dL (0.2-1.3); Blood Urea Nitrogen 13 mg/dL (7-17); Calcium 9.2 mg/dL (8.4-10.2); Carbon Dioxide 22 mmol/L (22-30); Chloride 108 mmol/L (98-107); Estimated CRCL calculation 103 ml/min; Estimated Glomerular Filt Rate > 60; Glucose 84 mg/dL (65-110); Lipase 88 U/L (23-300); Potassium 3.8 mmol/L (3.4-5.0); Sodium 137 mmol/L (137-145)
--- NOTE | 2023-09-18 16:13 | ED.FEMALEGU ---
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 Patient states that for the last 3 days she has had severe left lower quadrant pain. States that it feels similar to an episode of ovarian torsion that ultimately required her to have an oophorectomy on the right. Complains of nausea but no vomiting. No dysuria or hematuria. States that she has had kidney stones in the past and this feels differently. No constipation or diarrhea. No vaginal discharge or bleeding. No further complaints. Related Data Home Medications Medication Instructions Recorded Confirmed multivitamin 1 tablet PO DAILY 04/04/22 09/21/23 acetaminophen 650 mg 650 mg PO Q8H PRN Pain 12/31/22 09/21/23 tablet,extended release ibuprofen 800 mg tablet 200 mg PO TID PRN pain 12/31/22 09/21/23 tamsulosin 0.4 mg capsule (Flomax) 0.4 mg PO DAILY 09/21/23 09/21/23 Allergies Allergy/AdvReac Type Severity Reaction Status Date / Time ketorolac [From Toradol] Allergy Headache,Rash, Verified 09/21/23 11:58 Swollen tongue tramadol AdvReac Mild VOMITING/HE Verified 09/18/23 14:15 ADACHE hydralazine AdvReac Headache Verified 09/18/23 14:15 Review of Systems Review of Systems: All systems reviewed & are unremarkable except as noted in HPI and below PMFSH Past Medical History Medical History Depression Gastroesophageal reflux disease Hypertension Multiple kidney stones Obesity Seasonal allergies Sleep paralysis, recurrent isolated Smoker Surgical History Surgical History History of section 2000, 2002, 2010 History of endometrial ablation (2009) History of hysterectomy (2015) History of laparoscopic cholecystectomy on 04/25/23 PDC History of open reduction and internal fixation (ORIF) procedure (2012) Left elbow. History of tubal ligation Status post cystoscopy with ureteral stent placement Family History Family History Mother Diabetes mellitus Depression Alcoholism Father Hypertension Sibling Congenital heart disease Son Asthma Grandparent Diabetes mellitus Cerebrovascular accident Social History Social History Social History: Surrogate medical decision maker: Bang Luke, spouse. Code status: Full code. Smoking packs per day: 0.5 Smoking cigarettes per day: 10.0 Years smoked: 32 Smoking pack-years: 16.00 Smoking status: Current every day smoker Tobacco type: cigarettes Alcohol intake: never Alcohol use details: Social alcohol use in moderation. Substance use: never Substance use type: does not use Do You Feel Safe in your Home?: Yes Lack of Transportation: No Lack of Food: Never True Current Housing: I Have Housing Concerned About Future Housing: No Difficulty Paying Gas/Electric Bills: No Difficulty Paying for Meds: No Currently Unemployed: No Education: High School Diploma/GED Difficulty w/ Childcare or Family Care: No Living arrangements: with family Spiritual care concerns: No Exam Narrative: GENERAL: Well-appearing, in no acute distress, pleasant cooperative HEAD: Normocephalic, atraumatic. EYES: PERRLA and EOMI. ENT: Mucous membranes moist. NECK: Supple. CHEST: Clear to auscultation. No respiratory distress. HEART: Regular rate and rhythm. No murmur heard. Normal peripheral pulses. ABDOMEN: Soft, +LLQ tenderness, no guarding or rebound, no CVA tenderness EXTREMITIES: Normal range of motion. No edema. SKIN: Warm, dry, no rash. NEURO: No focal deficits. Alert and oriented x3. PSYCH: Normal mood and affect. Course Vital Signs Vital signs: Vital Signs
[2023-09-18] MEDS: SODIUM CHLORIDE 0.9% IV 1,000 ML 999 ML IV CONT (16:19)
[2023-09-18] MEDS: MORPHINE SULFATE (*CRX) 4 MG/ML INJ IV PUSH (16:23)
[2023-09-18] MEDS: ONDANSETRON INJ 4 MG/2 ML VIAL IV PUSH (16:23)
--- NOTE | 2023-09-18 16:27 | PC.NURSE ---
a hard stop came up on OCT prior to morphine administration stating similarity to tramadol. pt states they have had morphine several times and have never had an adverse reaction or allergy and would like the pain medication. notified
[2023-09-18] MEDS: oxyCODONE/ACETAMINOPHEN (*CRX) 5-325 MG TABLET 1 TABLET PO (19:10)
== END 2023-09-18 20:56 | disposition home or self-care (01) ==
PROVIDERS: Student in an Organized Health Care Education/Training Program; Emergency Provider Emergency Medicine; PCP Internal Medicine
DX: N20.1 Calculus of ureter (principal); I10 Essential (primary) hypertension; F17.210 Nicotine dependence, cigarettes, uncomplicated; Z79.899 Other long term (current) 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; Z79.1 Long term (current) use of non-steroidal anti-inflammatories (NSAID)
CPT/HCPCS: 36415; 74177; 76856; 80053; 81003; 83690; 85025; 96361; 96374; 96375; 99284; A9270; J2270; J2405; J7030; Q9967

== ENCOUNTER 2023-09-20 19:51 | Observation (INO) | payer BC, MEDICAID, SELFPAY ==
--- NOTE | ~2023-09-20 | CT_ITS ---
EXAMINATION: CT brain wo con INDICATION: Headache, hypertension COMPARISON: 10/17/2022 TECHNIQUE: Standard unenhanced head CT. The dose-length product (DLP) was 681.00 mGy-cm. The mA was a djusted according to patient size. Iterative reconstruction technique was employed. FINDINGS: No intracranial hemorrhage, acute infarction, or abnormal mass lesion. The ventricles are n ormal. No abnormal mass effect or midline shift. The basilio-white matter differentiation is normal. The basal cisterns are patent. The orbits are normal. The paranasal sinuses, mastoids and calvarium are normal. IMPRESSION: 1. No acute intracranial abnormality. Reviewed, dictated and finalized at location F. L ENGINE SPECIALIST
--- NOTE | ~2023-09-20 | CT_ITS ---
EXAMINATION: CT abdomen pelvis wo con DATE: 09/21/2023 01:29 INDICATION: Left in the stomach TECHNIQUE: Computed tomography (CT) of the abdomen and pelvis was performed without intravenous contr ast. The dose-length product (DLP) was 584.56 mGy-cm. Automated exposure control and iterative recons truction technique were employed. COMPARISON: 09/18/2023 FINDINGS: Minimal dependent atelectasis is present in the lung bases. The heart size is normal. The l iver is diffusely low in attenuation when compared with the spleen, consistent with hepatic steatosis . Changes of cholecystectomy. The spleen, pancreas, and adrenal glands are normal. The kidneys are un remarkable. Again noted is a 4 mm stone at the left ureteropelvic junction. No pathologically enlarge d abdominal or pelvic lymph nodes are identified. No free intraperitoneal gas or evidence of bowel ob struction. There is liquid stool throughout the colon to the level of the rectum. Colonic diverticulo sis is present without evidence of diverticulitis. There is mild lumbar spondylosis. IMPRESSION: 1. 4 mm stone at the left ureteropelvic junction. 2. Liquid stool in the colon to the level of the rectum which could reflect diarrhea. 3. Diffuse hepatic steatosis. Reviewed, dictated and finalized at location F. OWAVE RADIO TECHNICIAN IMPRESSION: 1. 4 mm stone at the left ureteropelvic junction. 2. Liquid stool in the colon to the level of the rectum which could reflect you rrhea. 3. Diffuse hepatic steatosis.
--- NOTE | ~2023-09-20 | XR_ITS ---
EXAMINATION: XR retrograde pyelo w/stent LT DATE: 09/21/2023 14:16 INDICATION: Left ureteral stone. TECHNIQUE: 16 intraoperative fluoroscopic views of the abdomen and pelvis were obtained. I was not pr esent. Fluoroscopy exposure time was 51 seconds. COMPARISON: CT abdomen and pelvis 09/21/2023 FINDINGS: The left-sided retrograde pyelogram is unremarkable. The final images demonstrate a left in ternal ureteral stent in expected position. IMPRESSION: 1. Left internal ureteral stent in expected position. Reviewed, dictated and finalized at location A. FARM WORKER
[2023-09-20 20:05] VITALS: BP 154/140; PULSE 84; RESP 15; TEMP 36.4; O2SAT 100
[2023-09-20 20:31] LABS: Basophils Percent Auto 0.4 % (0.2-1.2); Eosinophils Absolute Auto 0.2 K/mm3 (0-0.3); Eosinophils Percent Auto 1.8 % (0-4.4); Hematocrit 41.1 % (37.0-47.0); Hemoglobin 14.4 g/dL (12.0-15.0); Immature Granulocyte Absolute 0.03 K/mm3 (0.00-0.031); Immature Granulocyte Percent A 0.3 % (0-0.5); Lymphocytes Absolute Auto 2.09 K/mm3 (0.9-3.2); Lymphocytes Percent Auto 21.5 % (18.3-44.2); Mean Corpuscular Volume 88.4 fl (80-100); Mean Platelet Volume 9.5 fl (7.4-10.4); Monocytes Absolute Auto 0.7 K/mm3 (0.1-0.6); Neutrophils Absolute Auto 6.7 K/mm3 (1.3-6.7); Platelet Count Result 237 k/mm3 (150-375); Red Blood Count 4.65 M/mm3 (4.2-5.4); Red Cell Distribution Width 12.4 % (11.5-14.5); White Blood Count 9.7 K/mm3 (4.5-10.0)
[2023-09-20 20:41] LABS: Alanine Aminotransferase 31 U/L (6-35); Albumin Level 4.2 g/dL (3.5-5.1); Alkaline Phosphatase 81 U/L (38-126); Anion Gap 8 mmol/L (8-16); Aspartate Amino Transferase 31 U/L (14-36); Bilirubin,Total 0.6 mg/dL (0.2-1.3); Blood Urea Nitrogen 8 mg/dL (7-17); Calcium 8.9 mg/dL (8.4-10.2); Carbon Dioxide 21 mmol/L (22-30); Chloride 107 mmol/L (98-107); Estimated CRCL calculation 121 ml/min; Estimated Glomerular Filt Rate > 60; Glucose 79 mg/dL (65-110); Potassium 3.4 mmol/L (3.4-5.0); Sodium 136 mmol/L (137-145)
[2023-09-20 20:43] LABS: Appearance Urine Cloudy (Clear); Bacteria Urine 1+ /hpf; Bilirubin Urine Negative (Negative); Blood Urine Trace (Negative); Color Urine Yellow (Yellow); Glucose Urine UA Negative (Negative); Ketones Urine Negative (Negative); Leukocyte Esterase Ur Trace LEU/UL (Negative); Nitrate Urine Negative (Negative); Non Pathogenic Casts 0-2; Protein Urine Negative (Negative); RBC Urine 0-2 /hpf (0-2); Specific Grav Ur 1.008 (1.001-1.035); Squamous Epithelial Cell Urine Many /hpf (Few); Urobilinogen Urine 0.2 mg/dL (<2.0)
[2023-09-20 21:00] LABS: Add Urine Microscopic? YES
[2023-09-21] VITALS (33 sets, daily range): BP systolic 122–236; BP diastolic 82–168; PULSE 59–91; RESP 12–20; TEMP 36–36.9; O2SAT 93–100; BMI 32.2
--- NOTE | 2023-09-21 01:12 | ECG_ITS ---
Measurements Intervals [place] Rate: 55 P: 10 IN: 191 QRS: 5 QRSD: 95 T: 16 QT: 456 QTc: 439 Interpretive Statements SINUS BRADYCARDIA MODERATE VOLTAGE CRITERIA FOR LVH, CONSIDER NORMAL VARIANT [MEETS CRITERIA IN ONE OF: R(aVL), S(V1), R(V5), R(V5/V6)+S(V1)] ABNORMAL ECG COMPARED TO ECG 04/22/2023 19:33:26 SINUS BRADYCARDIA NOW PRESENT Electronically Signed On 09-21-2023 8:04:45 SENIOR [employer] NET DEVELOPER by Kevin Quiroz M.D.
--- NOTE | 2023-09-21 01:19 | ED.ABDPAIN ---
HPI - Abdominal Pain General Chief Complaint: Abdominal Pain Stated Complaint: left flank pain Time Seen by Provider: 09/21/23 00:30 Source: patient and old records reviewed Mode of arrival: ambulatory Limitations: no limitations History of Present Illness HPI narrative: Patient is a 43 y/o female, with pmh of kidney stones, poorly controlled HTN, who presents to the ED with c/o L flank pain and HTN. Patient reports she was seen in the ED here on 09/18 and diagnosed with 4mm L proximal stone. She was scheduled to f/u with urology today but began having worsening pain, N/V around dinner time. She has been taking oxycodone at home without much improvement. Still feels nauseous currently. Patient reports the pain is causing her blood pressure to become elevated. Patient has been seen in the ED several times for elevated blood pressures. She does report she has been having headaches and intermittent black spots in her vision, which she has experienced in the past with her BP being elevated. patient takes amlodipine, hydrochlorothiazide, losartan for her blood pressure. Reports compliance with these medications. Also reports oliguria, denies hematuria, fevers. Related Data Home Medications Medication Instructions Recorded Confirmed multivitamin 1 tablet PO DAILY 04/04/22 09/21/23 acetaminophen 650 mg 650 mg PO Q8H PRN Pain 12/31/22 09/21/23 tablet,extended release ibuprofen 800 mg tablet 200 mg PO TID PRN pain 12/31/22 09/21/23 tamsulosin 0.4 mg capsule (Flomax) 0.4 mg PO DAILY 09/21/23 09/21/23 Allergies Allergy/AdvReac Type Severity Reaction Status Date / Time ketorolac [From Toradol] Allergy Headache,Rash, Verified 09/21/23 11:58 Swollen tongue tramadol AdvReac Mild VOMITING/HE Verified 09/18/23 14:15 ADACHE hydralazine AdvReac Headache Verified 09/18/23 14:15 Review of Systems Review of Systems: CONSTITUTIONAL: Denies fever, chills, or sweats. EENT: See HPI CARDIOVASCULAR: Denies chest pain. RESPIRATORY: Denies dyspnea. GASTROINTESTINAL: See HPI. GENITOURINARY: Denies dysuria or hematuria. MUSCULOSKELETAL: See HPI. NEUROLOGIC: See HPI. All systems reviewed & are unremarkable except as noted in HPI and below PMFSH Past Medical History Medical History Depression Gastroesophageal reflux disease Hypertension Multiple kidney stones Obesity Seasonal allergies Sleep paralysis, recurrent isolated Smoker Surgical History Surgical History History of section 2000, 2001, 2009 History of endometrial ablation (2009) History of hysterectomy (2016) History of laparoscopic cholecystectomy on 04/25/23 PDC History of open reduction and internal fixation (ORIF) procedure (2012) Left elbow. History of tubal ligation Status post cystoscopy with ureteral stent placement Family History Family History Mother Diabetes mellitus Depression Alcoholism Father Hypertension Sibling Congenital heart disease Son Asthma Grandparent Diabetes mellitus Cerebrovascular accident Social History Social History Social History: Surrogate medical decision maker: Bang Luke, spouse. Code status: Full code. Smoking packs per day: 0.5 Smoking cigarettes per day: 10.0 Years smoked: 32 Smoking pack-years: 16.00 Smoking status: Current every day smoker Tobacco type: cigarettes Alcohol intake: never Alcohol use details: Social alcohol use in moderation. Substance use: never Substance use type: does not use Do You Feel Safe in your Home?: Yes Lack of Transportation: No Lack of Food: Never True Current Housing: I Have Housing Concerned About Future Housing: No Difficulty Paying Gas/Electric Bills: No Difficulty Paying for Meds: No Currently Unemployed: No Education: High School Diploma/GE
[2023-09-21] MEDS: ONDANSETRON INJ 4 MG/2 ML VIAL IV PUSH ×3 (01:31→15:54)
[2023-09-21] MEDS: SODIUM CHLORIDE 0.9% IV 1,000 ML 999 ML IV CONT (01:31)
[2023-09-21] MEDS: MORPHINE SULFATE (*CRX) 4 MG/ML INJ IV PUSH ×2 (01:32→08:08)
[2023-09-21] MEDS: hydrALAZINE HCL 20 MG/ML VIAL 10 MG IV PUSH ×2 (02:06→06:34)
[2023-09-21] MEDS: HYDROmorphone HCL INJ (*CRX) 1 MG/ML SYR IV PUSH ×5 (03:13→22:13)
[2023-09-21 03:17] LABS: Troponin I < 0.012 ng/mL (0.000-0.034)
[2023-09-21] MEDS: LOSARTAN POTASSIUM 50 MG TABLET PO ×2 (03:41→08:55)
[2023-09-21] MEDS: amLODIPine BESYLATE 5 MG TABLET 10 MG PO (03:41)
--- NOTE | 2023-09-21 06:08 | PC.NURSE ---
This patient, Renee Luke, was admitted to Virtual Bed 3rd Floor-1. Patient/family oriented to hospital policies and general routines including ID bracelet, bed and alarms, visiting hours, pain management, procedures, bathroom and other care routines, personal items, smoking policy, room service/diet, and visiting hours. Information on how to activate the Rapid Response Team has been discussed. Patient/Family are encouraged to report perceived risks to care and to ask questions if they do not understand what they are told or what they should do.
[2023-09-21] MEDS: ACETAMINOPHEN 325 MG TABLET 650 MG PO ×2 (12:22→21:00)
--- NOTE | 2023-09-21 12:58 | WPDURCON ---
Assessment and Plan Assessment and plan (1) Flank pain, acute: Code(s): R10.9 - Unspecified abdominal pain Status: Acute (2) Left ureteral stone: Code(s): N20.1 - Calculus of ureter Status: Acute Plan 43 year old female with persistent 4 mm L UPJ stone requiring multiple doses of narcotics. Due to ongoing pain, she elects to proceed with cystoscopy, left ureteroscopy with possible laser lithotripsy, and left stent placement today. She understood the risks including but not limited to bleeding, infection, damage to urinary tract, stent irritation, and risks of anesthesia. She understands that if I am not able to advance the ureteroscope to the level of the ureteral stone, I will place a stent and plan for definitive ureteroscopy with Dr Gonzalez once the ureter passively dilates. Anticipate she will be OK to d/c from perspective later today but will defer to hospitalist re: BP issues and dispo planning Urology Consult Note HPI Date Seen: 09/21/23 Requesting Physician: Chalino Contreras MD Primary Care Provider: Lucas Carter DO Consult Narrative Narrative: Renee Luke is a 43 year old female who initially presented to ER 09/18/23 with left flank pain. At that time, was diagnosed with 4 mm L UPJ stone. Pain was controlled and was discharged home. Has long history of stones and follows up with Dr. Gonzalez. Has required ureteroscopies and ESWL in the past. Also having issues with blood pressure control. She represented overnight with worsening left lower back pain radiating to left lower quadrant. Has has associated nausea but no emesis. No fevers, chills, dysuria or hematuria. CT this AM shows stable 4 mm L UPJ stone with minimal left hydro. Was admitted for BP control. Is requiring multiple doses of IV narcotics for her renal colic. Review of Systems Review of Systems: CONSTITUTIONAL: Denies fever, chills, or sweats. EENT: See HPI CARDIOVASCULAR: Denies chest pain. RESPIRATORY: Denies dyspnea. GASTROINTESTINAL: See HPI. GENITOURINARY: Denies dysuria or hematuria. MUSCULOSKELETAL: See HPI. NEUROLOGIC: See HPI. All systems reviewed & are unremarkable except as noted in HPI and below PMFSH Past Medical History Medical History Depression Gastroesophageal reflux disease Hypertension Multiple kidney stones Obesity Seasonal allergies Sleep paralysis, recurrent isolated Smoker Surgical History Surgical History History of section 2001, 2001, 2009 History of endometrial ablation (2009) History of hysterectomy (2015) History of laparoscopic cholecystectomy on 04/25/23 PDC History of open reduction and internal fixation (ORIF) procedure (2012) Left elbow. History of tubal ligation Status post cystoscopy with ureteral stent placement Family History Family History Mother Diabetes mellitus Depression Alcoholism Father Hypertension Sibling Congenital heart disease Son Asthma Grandparent Diabetes mellitus Cerebrovascular accident Social History Social History Social History: Surrogate medical decision maker: Bang Luke, spouse. Code status: Full code. Smoking packs per day: 0.5 Smoking cigarettes per day: 10.0 Years smoked: 32 Smoking pack-years: 16.00 Smoking status: Current every day smoker Tobacco type: cigarettes Alcohol intake: never Alcohol use details: Social alcohol use in moderation. Substance use: never Substance use type: does not use Do You Feel Safe in your Home?: Yes Lack of Transportation: No Lack of Food: Never True Current Housing: I Have Housing Concerned About Future Housing: No Difficulty Paying Gas/Electric Bills: No Difficulty Paying for Meds: No Currently Unemployed: No Education: High School Diplo
--- NOTE | 2023-09-21 13:12 | WPDANESEPP ---
Anes - Eval Pre Procedure Procedure: Cystoscopy, left ureteral stent, poss laser Date/Time: 09/21/23 13:12 Surgeon: Radu Preop Diagnosis: left ureteral stone Pre Op Diagnosis: left flank pain Patient Data Age: 43 Gender: F Height: 1.6 m Weight: 82.6 kg Last Vital Signs Temp 97.1 F L 09/21/23 08:00 Pulse 74 09/21/23 08:00 Resp 20 09/21/23 08:00 BP 142/95 H 09/21/23 08:00 Pulse Ox 98 09/21/23 08:00 O2 Del Method Room Air 09/21/23 08:00 Allergies Allergy/AdvReac Type Severity Reaction Status Date / Time ketorolac [From Toradol] Allergy Headache,Rash, Verified 09/21/23 11:58 Swollen tongue tramadol AdvReac Mild VOMITING/HE Verified 09/18/23 14:15 ADACHE hydralazine AdvReac Headache Verified 09/18/23 14:15 Home Medications Medication Instructions Recorded Confirmed Type multivitamin 1 tablet PO DAILY 04/04/22 09/21/23 History ondansetron 4 mg disintegrating 4 mg PO Q8H PRN nausea and 08/20/22 09/21/23 Rx tablet vomiting #30 tabs acetaminophen 650 mg 650 mg PO Q8H PRN Pain 12/31/22 09/21/23 History tablet,extended release ibuprofen 800 mg tablet 200 mg PO TID PRN pain 12/31/22 09/21/23 History losartan 50 mg tablet 50 mg PO BID #180 tabs 02/08/23 09/21/23 Rx hydrochlorothiazide 25 mg tablet 25 mg PO QAM #90 tabs 05/06/23 09/21/23 Rx oxycodone-acetaminophen 5 mg-325 1 tablet PO Q6H PRN pain #14 tabs 09/18/23 09/21/23 Rx mg tablet (Endocet) tamsulosin 0.4 mg capsule (Flomax) 0.4 mg PO DAILY 09/21/23 09/21/23 History Laboratory Tests 09/20/23 09/20/23 20:23 20:33 WBC 9.7 K/mm3 (4.5-10.0) RBC 4.65 M/mm3 (4.2-5.4) Hgb 14.4 g/dL (12.0-15.0) Hct 41.1 % (37.0-47.0) MCV 88.4 fl (80-100) MCH 31.0 pg (26-34) MCHC 35.0 g/dl (32-36) RDW 12.4 % (11.5-14.5) Plt Count 237 k/mm3 (150-375) MPV 9.5 fl (7.4-10.4) Immature Gran % (Auto) 0.3 % (0-0.5) Neut % (Auto) 69.0 % (45.5-73.1) Lymph % (Auto) 21.5 % (18.3-44.2) [place] % (Auto) 7.0 % (2.6-8.5) Eos % (Auto) 1.8 % (0-4.4) Baso % (Auto) 0.4 % (0.2-1.2) Lymph # (Auto) 2.09 K/mm3 (0.9-3.2) [place] # (Auto) 0.7 H K/mm3 (0.1-0.6) Eos # (Auto) 0.2 K/mm3 (0-0.3) Baso # (Auto) 0.0 K/mm3 (0.0-0.1) Abs Immat Gran (auto) 0.03 K/mm3 (0.00-0.031) Absolute Neuts (auto) 6.7 K/mm3 (1.3-6.7) Absolute Nucleated RBC 0.0 K/mm3 (0.0-0.012) Nucleated RBC % 0.0 % (0.0-0.2) Sodium 136 L mmol/L (137-145) Potassium 3.4 mmol/L (3.4-5.0) Chloride 107 mmol/L (98-107) Carbon Dioxide 21 L mmol/L (22-30) Anion Gap 8 mmol/L (8-16) BUN 8 D mg/dL (7-17) Creatinine 0.50 L mg/dL (0.7-1.0) Estim Creat Clear Calc 121 ml/min Estimated GFR > 60 (59 - ) Glucose 79 mg/dL (65-110) Calcium 8.9 mg/dL (8.4-10.2) Total Bilirubin 0.6 mg/dL (0.2-1.3) AST 31 U/L (14-36) ALT 31 U/L (6-35) Alkaline Phosphatase 81 U/L (38-126) Troponin I < 0.012 ng/mL (0.000-0.034) Total Protein 7.0 g/dL (6.3-8.2) Albumin 4.2 g/dL (3.5-5.1) Urine Color Yellow (Yellow) Urine Appearance Cloudy H (Clear) Urine pH 6.0 (5.0-9.0) Ur Specific [place] 1.008 (1.001-1.035) Urine Protein Negative mg/dL (Negative) Urine Glucose (UA) Negative mg/dL (Negative) Urine Ketones Negative mg/dL (Negative) Ur Blood (Man) Trace (Negative) Urine Nitrate Negative (Negative) Urine Bilirubin Negative (Negative) Urine Urobilinogen 0.2 mg/dL (<2.0) Leukocyte Esterase Rfl Trace H ALEKSANDRA/UL (Negative) Urine RBC 0-2 /hpf (0-2) Urine WBC 6-10 H /hpf Ur Squamous Epith Cells Many H /hpf (Few) Urine Bacteria 1+ H /h
--- NOTE | 2023-09-21 13:50 | WPDANESEPPF ---
Anes - Initial Pre Proc Eval Procedure: Operation Date: 09/21/23 14:00 Proposed Procedures p Cysto, RPG, Stone Ext, Stent Placement(Left) - Darcy Lovelace MD Date/Time: 09/21/23 13:50 Surgeon: Chalino Contreras MD Pre Op Diagnosis: left flank pain Patient Data Age: 43 Gender: F Height: 1.6 m Weight: 82.6 kg Last Vital Signs Temp 36.2 C L 09/21/23 08:00 Pulse 74 09/21/23 08:00 Resp 20 09/21/23 08:00 BP 142/95 H 09/21/23 08:00 Pulse Ox 98 09/21/23 08:00 O2 Del Method Room Air 09/21/23 08:00 Allergies Allergy/AdvReac Type Severity Reaction Status Date / Time ketorolac [From Toradol] Allergy Headache,Rash, Verified 09/21/23 11:58 Swollen tongue tramadol AdvReac Mild VOMITING/HE Verified 09/18/23 14:15 ADACHE hydralazine AdvReac Headache Verified 09/18/23 14:15 Home Medications Medication Instructions Recorded Confirmed Type multivitamin 1 tablet PO DAILY 04/04/22 09/21/23 History ondansetron 4 mg disintegrating 4 mg PO Q8H PRN nausea and 08/20/22 09/21/23 Rx tablet vomiting #30 tabs acetaminophen 650 mg 650 mg PO Q8H PRN Pain 12/31/22 09/21/23 History tablet,extended release ibuprofen 800 mg tablet 200 mg PO TID PRN pain 12/31/22 09/21/23 History losartan 50 mg tablet 50 mg PO BID #180 tabs 02/08/23 09/21/23 Rx hydrochlorothiazide 25 mg tablet 25 mg PO QAM #90 tabs 05/06/23 09/21/23 Rx oxycodone-acetaminophen 5 mg-325 1 tablet PO Q6H PRN pain #14 tabs 09/18/23 09/21/23 Rx mg tablet (Endocet) tamsulosin 0.4 mg capsule (Flomax) 0.4 mg PO DAILY 09/21/23 09/21/23 History Laboratory Tests 09/20/23 09/20/23 20:23 20:33 WBC 9.7 K/mm3 (4.5-10.0) RBC 4.65 M/mm3 (4.2-5.4) Hgb 14.4 g/dL (12.0-15.0) Hct 41.1 % (37.0-47.0) MCV 88.4 fl (80-100) MCH 31.0 pg (26-34) MCHC 35.0 g/dl (32-36) RDW 12.4 % (11.5-14.5) Plt Count 237 k/mm3 (150-375) MPV 9.5 fl (7.4-10.4) Immature Gran % (Auto) 0.3 % (0-0.5) Neut % (Auto) 69.0 % (45.5-73.1) Lymph % (Auto) 21.5 % (18.3-44.2) [place] % (Auto) 7.0 % (2.6-8.5) Eos % (Auto) 1.8 % (0-4.4) Baso % (Auto) 0.4 % (0.2-1.2) Lymph # (Auto) 2.09 K/mm3 (0.9-3.2) [place] # (Auto) 0.7 H K/mm3 (0.1-0.6) Eos # (Auto) 0.2 K/mm3 (0-0.3) Baso # (Auto) 0.0 K/mm3 (0.0-0.1) Abs Immat Gran (auto) 0.03 K/mm3 (0.00-0.031) Absolute Neuts (auto) 6.7 K/mm3 (1.3-6.7) Absolute Nucleated RBC 0.0 K/mm3 (0.0-0.012) Nucleated RBC % 0.0 % (0.0-0.2) Sodium 136 L mmol/L (137-145) Potassium 3.4 mmol/L (3.4-5.0) Chloride 107 mmol/L (98-107) Carbon Dioxide 21 L mmol/L (22-30) Anion Gap 8 mmol/L (8-16) BUN 8 D mg/dL (7-17) Creatinine 0.50 L mg/dL (0.7-1.0) Estim Creat Clear Calc 121 ml/min Estimated GFR > 60 (59 - ) Glucose 79 mg/dL (65-110) Calcium 8.9 mg/dL (8.4-10.2) Total Bilirubin 0.6 mg/dL (0.2-1.3) AST 31 U/L (14-36) ALT 31 U/L (6-35) Alkaline Phosphatase 81 U/L (38-126) Troponin I < 0.012 ng/mL (0.000-0.034) Total Protein 7.0 g/dL (6.3-8.2) Albumin 4.2 g/dL (3.5-5.1) Urine Color Yellow (Yellow) Urine Appearance Cloudy H (Clear) Urine pH 6.0 (5.0-9.0) Ur Specific [place] 1.008 (1.001-1.035) Urine Protein Negative mg/dL (Negative) Urine Glucose (UA) Negative mg/dL (Negative) Urine Ketones Negative mg/dL (Negative) Ur Blood (Man) Trace (Negative) Urine Nitrate Negative (Negative) Urine Bilirubin Negative (Negative) Urine Urobilinogen 0.2 mg/dL (<2.0) Leukocyte Esterase Rfl Trace H ALEKSANDRA/UL (Negative) Urine RBC 0-2 /hpf (0-2) Urine WBC 6-10 H /hpf Ur Squa
[2023-09-21] MEDS: ceFAZolin 2 GM/D5W 50 ML 2 GM/50 ML BAG IVPB (13:53)
[2023-09-21] MEDS: LACTATED RINGERS 1,000 ML 30 ML IV CONT (13:53)
[2023-09-21] MEDS: LIDOCAINE HCL 2% GEL UROJET 10 ML PKG MUCOUS MEM (14:06)
--- NOTE | 2023-09-21 14:17 | P.OP_ITS ---
Procedure Note - Detailed Date of Procedure 09/21/23 Pre-op Diagnosis left proximal ureteral stone and renal colic Post-op Diagnosis Same Procedure Performed cystoscopy, left ureteroscopy with stone extraction, left retrograde pyelogram a nd placement of left 4.8Fr VL stent Surgeon Darcy Lovelace MD Anesthesia General and Local Indications 43 yr old female with 4 mm left UPJ stone with ongoing renal colic. After discussion regarding options, she elects for ureteroscopic stone extraction and stent placement. She understands the risks including but not limited to bleeding, infection, damage to urinary tract, stent irritation, and risks of anesthesia. She elects to proceed. Findings 4 mm left proximal ureteral stone Description of Procedure Patient was corrected identified and informed consent was obtained. She was brought to the OR and a formal timeout was performed. General anesthesia was induced. She received intravenous antibiotics. She was placed in the dorsal lithotomy position and was prepped and draped in a sterile fashion. A rigid cystoscope was inserted through the urethra into the bladder. There were no masses, stones or tumors identified. The left UO was intubated with a sensor wire which was advanced under fluoroscopy into the left kidney. I then dilated the ureter with an 8/10 coaxial dilator. I advanced the rigid ureteroscope up to the level of the proximal ureter and encountered the 4 mm left proximal ureteral stone. Using a nitinol basket, the stone was grasped and removed intact. No additional ureteral fragments were seen. I used the 8fr coaxial dilator to shoot a gentle retrograde pyelogram to delineate the renal anatomy. She was noted to have mild left hydronephrosis. I then placed a 4.8Fr VL stent under fluoroscopic guidance with a curl in the renal pelvic and another curl in the bladder. The bladder was drained of its contents. 2% lidocaine jelly was instilled. She was awaken and taken to the recovery room in a stable condition. Implants 4.8Fr VL stent Estimated Blood Loss 5 Pathology Yes (stone for chemical analysis) Condition Stable Disposition PACU
[2023-09-21] MEDS: fentaNYL CITRATE INJ (*CRX) 100 MCG/2 ML VIAL 25 MCG IV PUSH (14:20)
--- NOTE | 2023-09-21 16:52 | PM.IMHP ---
H&P: HPI History of Present Illness Date/Time: 09/21/23 16:53 Chief Complaint: Left flank pain, >1 week Narrative: Renee Luke is a 43 y/o female, with pmh of kidney stones, poorly controlled HTN, who presents to the ED with c/o L flank pain. After presenting to the ED on 09/18/23, during that encounter Exam demonstrated left flank tenderness.? Blood work is unremarkable.? UA without any evidence of blood.? Pelvic Ultrasound without acute abnormalities.? CT abdomen pelvis shows a 4 mm stone at the left UVJ.? No hydro.? Her urine is clean. Her pain was controlled with Percocet.? Patient has Flomax and Zofran at home.? She is safe for outpatient management.? She was advised to f/u with Dr. Gonzalez and she was discharged in stable condition. She was scheduled to f/u with urology on 09/20/23 but began having worsening pain, N/V around dinner time. ? She has been taking oxycodone at home without much improvement.? Still feels nauseous currently.? Patient reports the pain is causing her blood pressure to become elevated.? During the ED evaluation, her BP was found to be elevated and this improved with Hydralazine; at home she takes amlodipine, hydrochlorothiazide, losartan for her blood pressure.? Reports compliance with these medications.? Also reports oliguria, denies hematuria, fevers. She smokes about 0.5-1ppd of cigarettes, denies alcohol or recreational drug use; her family Hx is not contributory to the PC Significant findings: UA: Trace LE; 6-10 WBC, +bacteria WBC 9.7 Hb 14 PLT 237 Na 136 K 3.4 AG 8 GFR >60 CTAP: 1. 4 mm stone at the left ureteropelvic junction. 2. Liquid stool in the colon to the level of the rectum which could reflect diarrhea. 3. Diffuse hepatic steatosis. CT head: 1. No acute intracranial abnormality. She will be admitted, evaluated and managed for left flank pain, nephrolithiasis. Review of Systems Review of Systems: All systems reviewed & are unremarkable except as noted in HPI and below Constitutional: Constitutional: Reports fatigue Eyes: Eyes: Reports no additional eye complaints ENT: Reports system reviewed and no additional complaints, except as documented Cardiovascular: Cardiovascular: Reports no additional cardiovascular complaints Respiratory: Respiratory: Reports no additional respiratory complaints Gastrointestinal: Gastrointestinal: Reports no additional gastrointestinal complaints Genitourinary: Genitourinary: Denies hematuria, Reports flank pain (Left) and Denies urinary incontinence Musculoskeletal: Musculoskeletal: Reports no additional musculoskeletal complaints Integumentary/Breasts: Skin/Breast: Reports system reviewed and no additional complaints, except as docu Neurologic: Reports system reviewed and no additional complaints, except as documented Psychiatric: Psychiatric: Reports no additional psychiatric complaints PMFSH Past Medical History Medical History Depression Gastroesophageal reflux disease Hypertension Multiple kidney stones Obesity Seasonal allergies Sleep paralysis, recurrent isolated Smoker Surgical History Surgical History History of section 2000, 2001, 2009 History of endometrial ablation (2009) History of hysterectomy (2015) History of laparoscopic cholecystectomy on 04/25/23 PDC History of open reduction and internal fixation (ORIF) procedure (2012) Left elbow. History of tubal ligation Status post cystoscopy with ureteral stent placement Family History Family History Mother Diabetes mellitus Depression Alcoholism Father Hypertension Sibling Congenital heart disease Son Asthma Grandparent Diabetes mellitus Cerebrovascular accident Social History Social History Social History: Surrogate medical decision maker: Bang Luke, spouse. Code sta
[2023-09-21] MEDS: LORazepam INJ (*CRX) 2 MG/ML VIAL 0.5 MG IV PUSH (17:52)
[2023-09-21] MEDS: HYDROcodone/acetaminophen (*CRX) 5-325 MG TABLET 1 TAB PO (21:00)
[2023-09-22] VITALS (12 sets, daily range): BP systolic 158–198; BP diastolic 85–107; PULSE 70–97; RESP 16–19; TEMP 36.3–37.1; O2SAT 96–98
[2023-09-22] MEDS: HYDROmorphone HCL INJ (*CRX) 1 MG/ML SYR IV PUSH ×5 (03:42→20:45)
[2023-09-22] MEDS: hydrALAZINE HCL 20 MG/ML VIAL 10 MG IV PUSH (05:37)
[2023-09-22 06:57] LABS: Basophils Percent Auto 0.2 % (0.2-1.2); Eosinophils Absolute Auto 0.1 K/mm3 (0-0.3); Eosinophils Percent Auto 0.5 % (0-4.4); Hematocrit 40.7 % (37.0-47.0); Hemoglobin 14.1 g/dL (12.0-15.0); Immature Granulocyte Absolute 0.04 K/mm3 (0.00-0.031); Immature Granulocyte Percent A 0.3 % (0-0.5); Lymphocytes Absolute Auto 2.13 K/mm3 (0.9-3.2); Lymphocytes Percent Auto 18.3 % (18.3-44.2); Mean Corpuscular HGB Conc 34.6 g/dl (32-36); Mean Corpuscular Volume 89.5 fl (80-100); Mean Platelet Volume 9.7 fl (7.4-10.4); Monocytes Absolute Auto 0.9 K/mm3 (0.1-0.6); Monocytes Percent Auto 7.5 % (2.6-8.5); Neutrophils Absolute Auto 8.5 K/mm3 (1.3-6.7); Neutrophils Percent Auto 73.2 % (45.5-73.1); Platelet Count Result 224 k/mm3 (150-375); Red Blood Count 4.55 M/mm3 (4.2-5.4); Red Cell Distribution Width 12.4 % (11.5-14.5); White Blood Count 11.6 K/mm3 (4.5-10.0)
[2023-09-22 07:16] LABS: Alanine Aminotransferase 25 U/L (6-35); Albumin Level 3.9 g/dL (3.5-5.1); Alkaline Phosphatase 81 U/L (38-126); Anion Gap 10 mmol/L (8-16); Aspartate Amino Transferase 26 U/L (14-36); Blood Urea Nitrogen 7 mg/dL (7-17); Calcium 8.7 mg/dL (8.4-10.2); Carbon Dioxide 21 mmol/L (22-30); Chloride 105 mmol/L (98-107); Estimated CRCL calculation 122 ml/min; Estimated Glomerular Filt Rate > 60; Glucose 96 mg/dL (65-110); Potassium 3.1 mmol/L (3.4-5.0); Sodium 136 mmol/L (137-145)
[2023-09-22] MEDS: LOSARTAN POTASSIUM 50 MG TABLET PO ×2 (08:39→17:37)
[2023-09-22] MEDS: SUMAtriptan SUCCINATE 25 MG TABLET 50 MG PO (08:40)
[2023-09-22] MEDS: hydroCHLOROthiazide 25 MG TABLET PO (08:40)
[2023-09-22] MEDS: ENOXAPARIN 40 MG/0.4 ML SYRINGE SUB-Q (08:48)
[2023-09-22] MEDS: amLODIPine BESYLATE 2.5 MG, amLODIPine BESYLATE 5 MG 7.5 MG PO (10:39)
--- NOTE | 2023-09-22 10:50 | WPDUROPN2 ---
Progress Note: A&P Assessment and Plan (1) Renal colic on left side: Code(s): N23 - Unspecified renal colic Status: Acute (2) Left ureteral stone: Code(s): N20.1 - Calculus of ureter Status: Acute Plan POD#1 s/p left ureteroscopy with stone extraction and left stent placement - having stent pain and has allergy to toradol. Switched her from norco to percocet - issues with uncontrolled BP- will defer to hospitalist - she will f/u with Carlos or Javon later this week for stent removal in the office Subjective Subjective Date/Time Seen: 09/22/23 10:50 Interval history: Having stent pain. States norco does not help enough. Still having issues with uncontrolled BP Review of Systems Review of Systems: CONSTITUTIONAL: Denies fever, chills, or sweats. EENT: See HPI CARDIOVASCULAR: Denies chest pain. RESPIRATORY: Denies dyspnea. GASTROINTESTINAL: See HPI. GENITOURINARY: Denies dysuria or hematuria. MUSCULOSKELETAL: See HPI. NEUROLOGIC: See HPI. All systems reviewed & are unremarkable except as noted in HPI and below Exam Narrative: GENERAL: Well appearing, obese with BMI of 31.9, non-toxic, in no acute distress. HEAD: Normocephalic, atraumatic. EYES: EOMI, conjunctiva clear RESPIRATORY: Airway patent, respirations nonlabored. CARDIOVASCULAR: Regular rate. ABDOMINAL: Soft, mild L CVAT MUSCULOSKELETAL: Moves all extremities. No gross deformities. SKIN: Warm, dry, normal color. NEURO: A&O X3. Speech clear. Cranial nerves II-XII grossly intact. Steady gait. No ataxic movements. No focal deficits. PSYCHIATRIC: Appropriate mood and affect. Normal interaction. Objective Data Vital Signs Vital Signs: Vital Signs - 24 hr 09/21/23 13:50 09/21/23 14:19 09/21/23 14:33 Temperature 36.0 C L 36.1 C L Pulse Rate 61 70 75 Respiratory Rate 18 16 14 Blood Pressure 149/82 H 122/85 135/94 H Pulse Oximetry 98 100 100 Oxygen Delivery Simple Face Mask Simple Face Mask Oxygen Flow Rate 6 6 09/21/23 14:45 09/21/23 15:00 09/21/23 14:00 Temperature 36.0 C L Pulse Rate 74 67 61 Respiratory Rate 16 15 18 Blood Pressure 150/97 H 154/95 H 149/82 H Pulse Oximetry 97 98 98 Oxygen Delivery Room Air Room Air Oxygen Flow Rate 09/21/23 12:00 09/21/23 21:00 09/21/23 20:00 Temperature 36.9 C Pulse Rate 67 69 Respiratory Rate 14 Blood Pressure 187/106 H Pulse Oximetry 97 Oxygen Delivery Room Air Oxygen Flow Rate 09/21/23 20:00 09/22/23 00:00 09/22/23 01:00 Temperature 37.1 C Pulse Rate 74 74 72 Respiratory Rate 16 Blood Pressure 158/85 H Pulse Oximetry 96 Oxygen Delivery Oxygen Flow Rate 09/22/23 04:00 09/22/23 06:00 09/22/23 07:00 Temperature 37.1 C Pulse Rate 73 80 Respiratory Rate 16 Blood Pressure 198/103 H 178/85 H Pulse Oximetry 98 Oxygen Delivery Oxygen Flow Rate Intake/Output Intake/Output: Intake & Output 09/19/23 09/20/23 09/21/23 09/22/23 23:59 23:59 23:59 23:59 Intake Total 1490 480 Output Total 400 750 Balance 1090 -270 Meds/Results Medications: Active Medications Generic Name Dose Route Start Last Admin Trade Name Freq PRN Reason Stop Dose Admin Acetaminophen 650 mg 09/21/23 10:55 09/21/23 21:00 Acetaminophen 325 Mg Tablet PO 650 mg Q4H PRN Administration Headache Amlodipine Besylate 2.5 mg/ 7.5 mg 09/22/23 09:00 09/22/23 10:39 Amlodipine Besylate 5 mg PO 7.5 mg DAILY MARINA Administration Enoxaparin Sodium 40 mg 09/22/23 09:00 09/22/23 08:48 Enoxaparin 40 Mg/0.4 Ml Syringe SUB-Q 40 mg DAILY MARINA Administration Hydralazine HCl 10 mg 09/21/23 03:26 09/22/23 05:37 Hydralazine Hcl 20 Mg/Ml Vial IV PUSH 10 mg Q8H PRN Administration systolic BP > 190 Hydrochlorothiazide 25 mg 09/22/23 09:00 09/22/23 08:40 Hydrochlorothiazide 25 Mg Tablet PO 25 mg QAM MARINA Administration Ceftriaxone Sodium 1 gm in 50 mls @ 100
[2023-09-22] MEDS: oxyCODONE/ACETAMINOPHEN (*CRX) 5-325 MG TABLET 1 TABLET PO ×2 (12:18→17:36)
--- NOTE | 2023-09-22 17:09 | PM.IMPN ---
Progress Note: A&P Assessment and Plan (1) Renal colic on left side: Code(s): N23 - Unspecified renal colic Status: Acute (2) Left flank mass: Code(s): R19.00 - Intra-abdominal and pelvic swelling, mass and lump, unspecified site Status: Acute (3) Obesity (BMI 30-39.9): Code(s): E66.9 - Obesity, unspecified Status: Acute Assessment and Plan: Diet and lifestyle modification (4) Tobacco abuse: Code(s): Z72.0 - Tobacco use Status: Acute (5) Hypertensive urgency: Code(s): I16.0 - Hypertensive urgency Status: Acute Assessment and Plan: Amlodipine, Losartan, HCTZ Plan Acute and principal conditions 1. Left renal colic 2. Left nephrolithiasis 3. UTI 4. Migraines 5. Hypertensive Urgency s/p cystoscopy, left ureteroscopy with stone extraction, left retrograde pyelogram and placement of left 4.8Fr VL stent. 09/21/23 Losartan, Amlodipine, Hydralazine Ceftriaxone Ativan for bladder spasms 09/22/23: Amlodipine, Losartan, Nephrology consulted Chronic and stable conditions 1. Nicotine dependence with current daily use 2. Obesity,BMI 32 3. Hypertension Time Spent With Patient Time with patient: 25 - 35 minutes Subjective Date/time seen: 09/22/23 17:09 Interval history: Having stent pain. States norco does not help enough. Still having issues with uncontrolled BP Review of Systems Review of Systems: All systems reviewed & are unremarkable except as noted in HPI and below Constitutional: Constitutional: Reports fatigue Eyes: Eyes: Reports no additional eye complaints ENT: Reports system reviewed and no additional complaints, except as documented Cardiovascular: Cardiovascular: Reports no additional cardiovascular complaints Respiratory: Respiratory: Reports no additional respiratory complaints Gastrointestinal: Gastrointestinal: Reports no additional gastrointestinal complaints Genitourinary: Genitourinary: Denies hematuria, Reports flank pain (Left) and Denies urinary incontinence Musculoskeletal: Musculoskeletal: Reports no additional musculoskeletal complaints Integumentary/Breasts: Skin/Breast: Reports system reviewed and no additional complaints, except as docu Neurologic: Reports system reviewed and no additional complaints, except as documented Psychiatric: Psychiatric: Reports no additional psychiatric complaints Endocrine: Endocrine: Reports fatigue Exam Const: General: in distress HENMT: Ears: TM's normal bilaterally Eyes: General: appearance normal, both eyes and all related structures Pupils: Equal, round and reactive pupils present Neck: Neck: supple Resp: Effort & Inspection: normal respiratory effort Cardio: Rate: regular rate Skin: General skin exam: normal color Neuro: General: gait normal Cranial nerves: Yes Equal, round and reactive pupils present Motor exam (neuro): 5/5 motor strength present throughout Extrem: General: normal to inspection Psych: Mental Status: mental status grossly normal Objective Data Vital Signs Vital Signs: Vital Signs - 24 hr 09/21/23 21:00 09/21/23 20:00 09/21/23 20:00 Temperature 98.5 F Pulse Rate 69 74 Respiratory Rate 14 Blood Pressure 187/106 H Pulse Oximetry 97 Oxygen Delivery Room Air 09/22/23 00:00 09/22/23 01:00 09/22/23 04:00 Temperature 98.8 F Pulse Rate 74 72 73 Respiratory Rate 16 Blood Pressure 158/85 H Pulse Oximetry 96 Oxygen Delivery 09/22/23 06:00 09/22/23 07:00 09/22/23 12:20 Temperature 98.7 F Pulse Rate 80 Respiratory Rate 16 Blood Pressure 198/103 H 178/85 H 171/107 H Pulse Oximetry 98 Oxygen Delivery 09/22/23 14:00 09/22/23 08:10 Temperature 97.4 F L Pulse Rate 97 Respiratory Rate 19 Blood Pressure 162/107 H Pulse Oximetry 97 Oxygen Delivery Room Air Intake/Output Intake/Output: Intake & Output 09/19/23 09/20/23 09/21/23 09/22/23 23:59 23:59 23:59 23:5
[2023-09-23] VITALS (8 sets, daily range): BP systolic 128–155; BP diastolic 87–102; PULSE 69–98; RESP 14–16; TEMP 36.6; O2SAT 95
[2023-09-23] MEDS: HYDROmorphone HCL INJ (*CRX) 1 MG/ML SYR IV PUSH ×4 (00:47→15:38)
[2023-09-23] MEDS: oxyCODONE/ACETAMINOPHEN (*CRX) 5-325 MG TABLET 1 TABLET PO ×2 (03:18→11:38)
[2023-09-23 06:40] LABS: Basophils Percent Auto 0.4 % (0.2-1.2); Eosinophils Absolute Auto 0.2 K/mm3 (0-0.3); Hematocrit 41.7 % (37.0-47.0); Hemoglobin 14.4 g/dL (12.0-15.0); Immature Granulocyte Absolute 0.03 K/mm3 (0.00-0.031); Immature Granulocyte Percent A 0.3 % (0-0.5); Lymphocytes Absolute Auto 2.68 K/mm3 (0.9-3.2); Lymphocytes Percent Auto 25.4 % (18.3-44.2); Mean Corpuscular HGB Conc 34.5 g/dl (32-36); Mean Corpuscular Hemoglobin 30.8 pg (26-34); Mean Corpuscular Volume 89.1 fl (80-100); Mean Platelet Volume 9.4 fl (7.4-10.4); Monocytes Absolute Auto 0.9 K/mm3 (0.1-0.6); Monocytes Percent Auto 8.8 % (2.6-8.5); Neutrophils Absolute Auto 6.7 K/mm3 (1.3-6.7); Neutrophils Percent Auto 63.1 % (45.5-73.1); Platelet Count Result 235 k/mm3 (150-375); Red Blood Count 4.68 M/mm3 (4.2-5.4); Red Cell Distribution Width 12.5 % (11.5-14.5); White Blood Count 10.5 K/mm3 (4.5-10.0)
[2023-09-23 07:01] LABS: Alanine Aminotransferase 24 U/L (6-35); Alkaline Phosphatase 66 U/L (38-126); Anion Gap 8 mmol/L (8-16); Aspartate Amino Transferase 32 U/L (14-36); Bilirubin,Total 0.9 mg/dL (0.2-1.3); Blood Urea Nitrogen 12 mg/dL (7-17); Calcium 8.8 mg/dL (8.4-10.2); Carbon Dioxide 25 mmol/L (22-30); Chloride 101 mmol/L (98-107); Estimated CRCL calculation 104 ml/min; Estimated Glomerular Filt Rate > 60; Glucose 92 mg/dL (65-110); Sodium 134 mmol/L (137-145)
[2023-09-23] MEDS: ENOXAPARIN 40 MG/0.4 ML SYRINGE SUB-Q (08:42)
[2023-09-23] MEDS: LOSARTAN POTASSIUM 50 MG TABLET PO (08:42)
[2023-09-23] MEDS: amLODIPine BESYLATE 2.5 MG, amLODIPine BESYLATE 5 MG 7.5 MG PO (08:42)
[2023-09-23] MEDS: hydroCHLOROthiazide 25 MG TABLET PO (08:42)
--- NOTE | 2023-09-23 09:44 | WPDUROPN2 ---
Progress Note: A&P Assessment and Plan (1) Renal colic on left side: Code(s): N23 - Unspecified renal colic Status: Acute (2) Left ureteral stone: Code(s): N20.1 - Calculus of ureter Status: Acute Plan POD#2 s/p left ureteroscopy with stone extraction and left stent placement - reports improvement in stent pain - issues with uncontrolled BP - will defer to hospitalist - she will be scheduled for outpatient follow-up with Dr. Gonzalez for stent removal in the office Subjective Subjective Date/Time Seen: 09/23/23 09:44 Interval history: Reene is feeling improved today. She does complain of some stent discomfort and bladder spasms with urination. States her urine is light pink. Denies dysuria. Does complain of some suprapubic tenderness. Denies nausea vomiting, fever, or chills. She is tolerating her diet. WBC has improved to 10.5. Creatinine remaining stable, 0.6. She is afebrile. BP remains elevated Review of Systems Review of Systems: All systems reviewed & are unremarkable except as noted in HPI and below Exam Narrative: General: Awake, alert, comfortable, no acute distress HEENT: Normocephalic, atraumatic, sclerae anicteric Respiratory: Normal respiratory effort, no accessory muscle use Abdomen: Nondistended, soft, nontender Skin: Normal coloration, warm and dry Neurologic: No focal neuro deficits noted Psychiatric: Appropriate mood and affect, judgment and insight intact Objective Data Vital Signs Vital Signs: Vital Signs - 24 hr 09/22/23 12:20 09/22/23 14:00 09/22/23 12:00 Temperature 97.4 F L Pulse Rate 97 87 Respiratory Rate 19 Blood Pressure 171/107 H 162/107 H Pulse Oximetry 97 Oxygen Delivery 09/22/23 16:00 09/22/23 20:00 09/22/23 20:00 Temperature Pulse Rate 70 81 Respiratory Rate Blood Pressure Pulse Oximetry Oxygen Delivery Room Air 09/22/23 22:00 09/23/23 00:00 09/23/23 04:00 Temperature 97.3 F L Pulse Rate 75 69 73 Respiratory Rate 16 Blood Pressure 162/94 H Pulse Oximetry 98 Oxygen Delivery 09/23/23 06:00 Temperature 97.8 F Pulse Rate 98 Respiratory Rate 16 Blood Pressure 155/102 H Pulse Oximetry 95 Oxygen Delivery Intake/Output Intake/Output: Intake & Output 09/20/23 09/21/23 09/22/23 09/23/23 23:59 23:59 23:59 23:59 Intake Total 1490 1010 Output Total 400 1350 Balance 1090 -340 Meds/Results Medications: Active Medications Generic Name Dose Route Start Last Admin Trade Name Freq PRN Reason Stop Dose Admin Acetaminophen 650 mg 09/21/23 10:55 09/21/23 21:00 Acetaminophen 325 Mg Tablet PO 650 mg Q4H PRN Administration Headache Amlodipine Besylate 2.5 mg/ 7.5 mg 09/22/23 09:00 09/23/23 08:42 Amlodipine Besylate 5 mg PO 7.5 mg DAILY MARINA Administration Enoxaparin Sodium 40 mg 09/22/23 09:00 09/23/23 08:42 Enoxaparin 40 Mg/0.4 Ml Syringe SUB-Q 40 mg DAILY MARINA Administration Hydralazine HCl 10 mg 09/21/23 03:26 09/22/23 05:37 Hydralazine Hcl 20 Mg/Ml Vial IV PUSH 10 mg Q8H PRN Administration systolic BP > 190 Hydrochlorothiazide 25 mg 09/22/23 09:00 09/23/23 08:42 Hydrochlorothiazide 25 Mg Tablet PO 25 mg QAM MARINA Administration Hydromorphone HCl 1 mg 09/22/23 10:50 09/23/23 08:45 Hydromorphone Hcl Inj (*Crx) 1 Mg/Ml Syr IV PUSH 1 mg Q2H PRN Administration Pain Rated 7-10 Ceftriaxone Sodium 1 gm in 50 mls @ 100 mls/hr 09/21/23 18:00 09/22/23 18:07 Rocephin 1 Gm/Ns 50 Ml IVPB 09/25/23 18:29 Infused Q24H MARINA Infusion Losartan Potassium 50 mg 09/22/23 09:00 09/23/23 08:42 Losartan Potassium 50 Mg Tablet PO 50 mg BID MARINA Administration Ondansetron HCl 4 mg 09/21/23 11:53 09/21/23 15:54 Ondansetron Inj 4 Mg/2 Ml Vial IV PUSH 4 mg Q4H PRN Administration Nausea And Vomiting Oxycodone/Acetaminophen 1 tablet 09/22/23 10:50 09/23/23 03:18
--- NOTE | 2023-09-23 10:35 | PM.CNNEP ---
Assessment and Plan Assessment and plan (1) HTN (hypertension): Qualifiers: Hypertension type: primary hypertension Qualified Code(s): I10 - Essential (primary) hypertension Code(s): I10 - Essential (primary) hypertension Status: Acute Assessment and Plan: has had hypertension for at least 10 years or more reports home readings running ~ 150/90s range with home medications of losartan and HCTZ states that pain issues have notoriously caused higher BP readings in the past amlodipine recently added - would maximize this versus considering adding another agent follow trend of hemodynamics (2) Left ureteral stone: Code(s): N20.1 - Calculus of ureter Status: Acute Assessment and Plan: Urology following s/p cystoscopy, left ureteroscopy with stone extraction, left retrograde pyelogram and placement of left ureteral stent on 09/21/23 (3) Renal colic on left side: Code(s): N23 - Unspecified renal colic Status: Acute Assessment and Plan: presumably due to left nephrolithiasis and stenting pain is apparently quite persistently per nursing on narcotics for pain control I will continue follow the patient with you while she remains hospitalized make further recommendations as deemed necessary. Thank you for allowing me to participate in care of this patient. History of Present Illness Reason for Consult Consult date: 09/23/23 Reason for consult: Other (hypertension) Chief Complaint Chief complaint: left flank pain History of Present Illness Narrative: The patient is a 43-year-old female with a past medical history as outlined below who presented to [facility] Emergency room due to complaints of left flank pain. The flank pain had been going on for at least 5-7 days if not longer and as the pain continued to get worse, she finally decided to come to the emergency room for further assessment. Subsequent workup and evaluation demonstrated no significant laboratory abnormalities and a urinalysis without blood. She did undergo a pelvic ultrasound also showed no abnormalities because of the persistence of her flank pain, she had a CT scan of the abdomen pelvis which demonstrated a 4 mm kidney stone at the left ureterovesical junction. There is no evidence of hydronephrosis on this imaging study. She was given pain medications as well as Flomax and Zofran and she was discharged with the plan for outpatient follow-up with Urology. Unfortunately, her left flank continued to worsen in association with nausea and vomiting after she was discharged. The pain medication she was given did not seem to help with her left flank pain. she return to the emergency room on the day of admission with the same symptoms. Workup and evaluation at that time demonstrated her blood pressure be quite elevated and she was given IV hydralazine with improvement. Repeat urinalysis demonstrated trace leukocyte esterase, pyuria, and bacteria. Given the persistence of her left flank pain and her 2nd ER visit at this time, she was admitted the hospital for further evaluation and therapy. Since her admission, Urology was consulted and she underwent cystoscopy as well as left ureteral stent placement for definitive treatment of her left kidney stone. Unfortunately, her blood pressure remains elevated during this hospital stay with her current medications. Nephrology was consulted due to concerns of her blood pressure and persistent elevation despite ongoing medical therapy. From my discussion with the patient, she has had high blood pressure least 10+ years and her blood pressure normally runs in the 150s/90s with her current home medications. She remains on her home medications with the addition of amlodipine and her blood pressure seems to be running around what she normally does at home although she freely admits that when she has any type of pain in general, her blood pressure ri
--- NOTE | 2023-09-23 15:37 | PM.DS ---
DS: Admitting Diagnosis Discharge Date 09/23/23 Admitting Diagnosis 1. Left renal colic 2. Left nephrolithiasis 3. UTI 4. Migraines 5. Hypertensive Urgency DS: Discharge Diagnosis Discharge Diagnosis (1) Renal colic on left side: Code(s): N23 - Unspecified renal colic Status: Acute (2) Left ureteral stone: Code(s): N20.1 - Calculus of ureter Status: Acute (3) Hypertensive urgency, malignant: Code(s): I16.0 - Hypertensive urgency Status: Acute (4) Obesity (BMI 30-39.9): Code(s): E66.9 - Obesity, unspecified Status: Acute Plan 1. Left renal colic 2. Left nephrolithiasis 3. UTI 4. Migraines 5. Hypertensive Urgency DS: Summary Hospital Course Reason for hospitalization: 1. Left renal colic 2. Left nephrolithiasis 3. UTI 4. Migraines 5. Hypertensive Urgency Hospital Course: Chief Complaint: Left flank pain, >1 week Narrative: Renee Luke is a 43 y/o female, with pmh of kidney stones, poorly controlled HTN, who presents to the ED with c/o L flank pain. After presenting to the ED on 09/18/23, during that encounter Exam demonstrated left flank tenderness.? Blood work is unremarkable.? UA without any evidence of blood.? Pelvic Ultrasound without acute abnormalities.? CT abdomen pelvis shows a 4 mm stone at the left UVJ.? No hydro.? Her urine is clean. Her pain was controlled with Percocet.? Patient has Flomax and Zofran at home.? She is safe for outpatient management.? She was advised to f/u with? Dr. Gonzalez and she was discharged in stable condition. ?She was scheduled to f/u with urology on 09/20/23 but began having worsening pain, N/V around dinner time. ? She has been taking oxycodone at home without much improvement.? Still feels nauseous currently.? Patient reports the pain is causing her blood pressure to become elevated.? During the ED evaluation, her BP was found to be elevated and this improved with Hydralazine; at home she takes amlodipine, hydrochlorothiazide, losartan for her blood pressure.? Reports compliance with these medications.? Also reports oliguria, denies hematuria, fevers. She smokes about 0.5-1ppd of cigarettes, denies alcohol or recreational drug use; her family Hx is not contributory to the PC Significant findings: UA: Trace LE; 6-10 WBC, +bacteria WBC 9.7 Hb 14 PLT 237 Na 136 K 3.4 AG 8 GFR >60 CTAP: 1. 4 mm stone at the left ureteropelvic junction. 2. Liquid stool in the colon to the level of the rectum which could reflect diarrhea. 3. Diffuse hepatic steatosis. CT head: 1. No acute intracranial abnormality. She will be admitted, evaluated and managed for left flank pain, nephrolithiasis. Acute and principal conditions 1. Left renal colic 2. Left nephrolithiasis 3. UTI 4. Migraines 5. Hypertensive Urgency s/p?cystoscopy, left ureteroscopy with stone extraction, left retrograde pyelogram and placement of left 4.8Fr VL stent. 09/21/23 Losartan, Amlodipine, Hydralazine Ceftriaxone Ativan for bladder spasms 09/22/23: Amlodipine, Losartan, Nephrology consulted Chronic and stable conditions 1. Nicotine dependence with current daily use 2.?Obesity,BMI 32 3.?Hypertension Treatment rendered: Sumatriptan; s/p?cystoscopy, left ureteroscopy with stone extraction, left retrograde pyelogram and placement of left 4.8Fr VL stent. 09/21/23 Procedures performed: s/p?cystoscopy, left ureteroscopy with stone extraction, left retrograde pyelogram and placement of left 4.8Fr VL stent. 09/21/23 Status at Discharge Functional status at discharge: independent ambulation Overall status at discharge: patient is progressing back to baseline Time Spent with Patient Time attestation: Total time spent providing and/or coordinating discharge services: Time spent: Greater than 30 minutes Exam Narrative: General: Awake, alert, comfortable, no acute distress HEENT: Normocephalic, atraumatic, sclerae anicteric Respiratory: Normal respiratory effort, n
--- NOTE | 2023-09-23 17:16 | PC.NURSE ---
iv out, d/c instructions discussed, all belongings with her. leaving with in private car.
== END 2023-09-23 16:45 | disposition home or self-care (01) ==
LOC: ANHED 09-21 03:05 → ANH3MEDSUR 09-21 05:35
PROVIDERS: Emergency Medicine; Urology; Admitting Provider Internal Medicine; Emergency Provider Physician Assistant; PCP Internal Medicine; Visit Provider Internal Medicine
PROC: (CPT 52352; principal; 2023-09-21 14:00)
DX: N23 Unspecified renal colic (principal); N20.1 Calculus of ureter; N39.0 Urinary tract infection, site not specified; F32.A Depression, unspecified; G43.909 Migraine, unspecified, not intractable, without status migrainosus; I16.0 Hypertensive urgency; K76.0 Fatty (change of) liver, not elsewhere classified; R94.31 Abnormal electrocardiogram [ECG] [EKG]; I10 Essential (primary) hypertension; K21.9 Gastro-esophageal reflux disease without esophagitis; E66.9 Obesity, unspecified; Z68.32 Body mass index [BMI] 32.0-32.9, adult; Z98.890 Other specified postprocedural states; F17.210 Nicotine dependence, cigarettes, uncomplicated; Z79.1 Long term (current) use of non-steroidal anti-inflammatories (NSAID); Z79.891 Long term (current) use of opiate analgesic; Z79.899 Other long term (current) 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; Z82.49 Family history of ischemic heart disease and other diseases of the circulatory system
CPT/HCPCS: 52352; 52332; 36415; 70450; 74176; 74420; 80053; 81001; 82365; 84484; 85025; 87086; 88300; 93005; 96361; 96374; 96375; 96376; 99285; A9270; C1769; C2617; G0378; J0360; J0690; J0696; J1170; J1650; J2060; J2250; J2270; J2405; J2704; J3010; J7030; J7120; Q9966

== ENCOUNTER 2023-10-14 12:43 | Emergency (ER) | payer BC, MEDICAID, SELFPAY ==
--- NOTE | ~2023-10-14 | CT_ITS ---
EXAMINATION: CT abdomen pelvis wo con DATE: 10/14/2023 14:30 INDICATION: Flank pain TECHNIQUE: Computed tomography (CT) of the abdomen and pelvis was performed without intravenous contr ast. The dose-length product (DLP) was 241.89 mGy-cm. Automated exposure control and iterative recons truction technique were employed. COMPARISON: 09/21/2023 FINDINGS: Minimal dependent atelectasis is present in the lung bases. The heart size is normal. Jackson es of cholecystectomy are noted. The liver is diffusely low in attenuation when compared with the spl een, consistent with hepatic steatosis. The spleen, pancreas, and adrenal glands are normal. The kidn eys are unremarkable. No stones are identified in the kidneys, ureters, or bladder. No hydronephrosis or hydroureter. There has been interval treatment of the previously described left ureteropelvic carlyn ction stone. No pathologically enlarged abdominal or pelvic lymph nodes are identified. No free intra peritoneal gas or evidence of bowel obstruction. There is mild lumbar spondylosis. IMPRESSION: 1. Interval treatment of the previously described left ureteropelvic junction stone. 2. Diffuse hepatic steatosis. Reviewed, dictated and finalized at location B. OGICAL TECHNICAL OFFICER IMPRESSION: 1. Interval treatment of the previously described left ureteropelvic junction s tone. 2. Diffuse hepatic steatosis.
[2023-10-14 12:50] VITALS: BP 148/121; PULSE 110; RESP 20; TEMP 36.4; O2SAT 100
[2023-10-14 13:41] LABS: Appearance Urine Cloudy (Clear); Bacteria Urine 2+ /hpf; Bilirubin Urine Negative (Negative); Blood Urine 1+ (Negative); Color Urine Yellow (Yellow); Glucose Urine UA Negative (Negative); Ketones Urine Negative (Negative); Leukocyte Esterase Ur 3+ LEU/UL (Negative); Nitrate Urine Negative (Negative); Protein Urine Trace mg/dL (Negative); Squamous Epithelial Cell Urine Occasional /hpf (Few); Urobilinogen Urine 0.2 mg/dL (<2.0); WBC Urine >100 /hpf; pH Urine 5.5 (5.0-9.0)
[2023-10-14 13:42] LABS: Add Urine Microscopic? YES
[2023-10-14 14:13] VITALS: BP 152/121; PULSE 85; RESP 22; O2SAT 98
[2023-10-14 14:31] LABS: Basophils Percent Auto 0.3 % (0.2-1.2); Eosinophils Absolute Auto 0.1 K/mm3 (0-0.3); Eosinophils Percent Auto 1.1 % (0-4.4); Hematocrit 42.3 % (37.0-47.0); Hemoglobin 14.6 g/dL (12.0-15.0); Immature Granulocyte Absolute 0.02 K/mm3 (0.00-0.031); Immature Granulocyte Percent A 0.2 % (0-0.5); Lymphocytes Absolute Auto 1.88 K/mm3 (0.9-3.2); Lymphocytes Percent Auto 21.5 % (18.3-44.2); Mean Corpuscular HGB Conc 34.5 g/dl (32-36); Mean Corpuscular Hemoglobin 30.9 pg (26-34); Mean Corpuscular Volume 89.6 fl (80-100); Mean Platelet Volume 9.5 fl (7.4-10.4); Monocytes Absolute Auto 0.6 K/mm3 (0.1-0.6); Monocytes Percent Auto 6.8 % (2.6-8.5); Neutrophils Absolute Auto 6.1 K/mm3 (1.3-6.7); Neutrophils Percent Auto 70.1 % (45.5-73.1); Platelet Count Result 275 k/mm3 (150-375); Red Blood Count 4.72 M/mm3 (4.2-5.4); Red Cell Distribution Width 11.8 % (11.5-14.5); White Blood Count 8.7 K/mm3 (4.5-10.0)
[2023-10-14 14:34] VITALS: BP 132/109; PULSE 93; RESP 21; O2SAT 96
[2023-10-14] MEDS: SODIUM CHLORIDE 0.9% IV 1,000 ML 999 ML IV CONT (14:39)
[2023-10-14] MEDS: ONDANSETRON INJ 4 MG/2 ML VIAL IV PUSH (14:39)
[2023-10-14] MEDS: HYDROmorphone HCL INJ (*CRX) 1 MG/ML SYR IV PUSH (14:41)
[2023-10-14 14:43] LABS: Alanine Aminotransferase 32 U/L (6-35); Albumin Level 4.5 g/dL (3.5-5.1); Alkaline Phosphatase 80 U/L (38-126); Anion Gap 6 mmol/L (8-16); Aspartate Amino Transferase 26 U/L (14-36); Bilirubin,Total 0.4 mg/dL (0.2-1.3); Blood Urea Nitrogen 15 mg/dL (7-17); Calcium 9.5 mg/dL (8.4-10.2); Carbon Dioxide 24 mmol/L (22-30); Chloride 108 mmol/L (98-107); Estimated CRCL calculation 102 ml/min; Estimated Glomerular Filt Rate > 60; Glucose 112 mg/dL (65-110); Potassium 3.7 mmol/L (3.4-5.0); Sodium 138 mmol/L (137-145)
[2023-10-14 14:46] VITALS: BP 146/104; PULSE 72; RESP 18; O2SAT 97
--- NOTE | 2023-10-14 14:58 | ED.GENADULT ---
HPI - General Adult General Chief complaint: Urogenital-Female Stated complaint: Decrease urine Time Seen by Provider: 10/14/23 14:10 History of Present Illness HPI narrative: 43-year-old female with history of kidney stones presented to the emergency department for evaluation of worsening left flank pain and suprapubic abdominal pain. Patient states approximately 3 days ago she began having some left flank pain. Two weeks ago patient had a stent placed by Dr Gonzalez, stent was removed and patient states she did feel improved. Patient reports over the last week she began having increased left flank pain and increased urinary frequency that has continued to worsen over the last 3 days. Related Data Home Medications Medication Instructions Recorded Confirmed multivitamin 1 tablet PO DAILY 04/04/22 09/21/23 acetaminophen 650 mg 650 mg PO Q8H PRN Pain 12/31/22 09/21/23 tablet,extended release ibuprofen 800 mg tablet 200 mg PO TID PRN pain 12/31/22 09/21/23 tamsulosin 0.4 mg capsule (Flomax) 0.4 mg PO DAILY 09/21/23 09/21/23 Allergies Allergy/AdvReac Type Severity Reaction Status Date / Time ketorolac [From Toradol] Allergy Headache,Rash, Verified 10/14/23 12:54 Swollen tongue tramadol AdvReac Mild VOMITING/HE Verified 10/14/23 12:54 ADACHE hydralazine AdvReac Headache Verified 10/14/23 12:54 Review of Systems Review of Systems: All systems reviewed & are unremarkable except as noted in HPI and below PMFSH Past Medical History Medical History Depression Gastroesophageal reflux disease Hypertension Multiple kidney stones Obesity Seasonal allergies Sleep paralysis, recurrent isolated Smoker Surgical History Surgical History History of section 2000, 2002, 2009 History of endometrial ablation (2009) History of hysterectomy (2015) History of laparoscopic cholecystectomy on 04/25/23 PDC History of open reduction and internal fixation (ORIF) procedure (2012) Left elbow. History of tubal ligation Status post cystoscopy with ureteral stent placement Family History Family History Mother Diabetes mellitus Depression Alcoholism Father Hypertension Sibling Congenital heart disease Son Asthma Grandparent Diabetes mellitus Cerebrovascular accident Social History Social History Social History: Surrogate medical decision maker: Bang Luke, spouse. Code status: Full code. Smoking packs per day: 0.5 Smoking cigarettes per day: 10.0 Years smoked: 32 Smoking pack-years: 16.00 Smoking status: Current every day smoker Tobacco type: cigarettes Alcohol intake: never Alcohol use details: Social alcohol use in moderation. Substance use: never Substance use type: does not use Do You Feel Safe in your Home?: Yes Lack of Transportation: No Lack of Food: Never True Current Housing: I Have Housing Concerned About Future Housing: No Difficulty Paying Gas/Electric Bills: No Difficulty Paying for Meds: No Currently Unemployed: No Education: High School Diploma/GED Difficulty w/ Childcare or Family Care: No Living arrangements: with family Spiritual care concerns: No Exam Narrative: APPEARANCE: Well appearing, no pain, no distress, well-nourished. HEAD: normocephalic, atraumatic. EYES: PERRLA/EOMI, conjunctivae clear. NOSE: Normal no drainage EARS:TMS clear with good light reflex. THROAT: Pharynx clear, no exudate. NECK: Supple. No adenopathy, no masses. RESPIRATORY: Airway patent, respirations nonlabored. Clear to auscultation bilaterally, no rales, rhonchi, wheezing. CARDIOVASCULAR: Regular rate and rhythm without murmurs rubs or gallops. ABDOMINAL: Suprapubic abdominal pain MUSCULOSKELETAL: Moves all extremities. Strength/ROM intact, No edema, No calf tenderness. NEURO
[2023-10-14] MEDS: PHENAZOPYRIDINE HCL 100 MG TABLET 200 MG PO (15:14)
[2023-10-14 15:16] VITALS: BP 153/110; O2SAT 95
[2023-10-14 15:56] VITALS: BP 131/101; PULSE 69; RESP 16; TEMP 36.8; O2SAT 99
== END 2023-10-14 15:58 | disposition home or self-care (01) ==
PROVIDERS: Emergency Medicine; Emergency Provider Emergency Medicine; PCP Internal Medicine
DX: N39.0 Urinary tract infection, site not specified (principal); I10 Essential (primary) hypertension; E66.9 Obesity, unspecified; Z68.31 Body mass index [BMI] 31.0-31.9, adult; K21.9 Gastro-esophageal reflux disease without esophagitis; F17.210 Nicotine dependence, cigarettes, uncomplicated; Z87.442 Personal history of urinary calculi; Z90.710 Acquired absence of both cervix and uterus; K76.0 Fatty (change of) liver, not elsewhere classified
CPT/HCPCS: 36415; 74176; 80053; 81001; 85025; 87077; 87086; 87088; 87186; 96361; 96374; 96375; 99284; A9270; J0696; J1170; J2405; J7030

== ENCOUNTER 2023-11-11 03:17 | Emergency (ER) | payer BC, MEDICAID, SELFPAY ==
--- NOTE | ~2023-11-11 | CT_ITS ---
EXAMINATION: CT abdomen pelvis wo con DATE: 11/11/2023 05:31 INDICATION: Left flank pain. TECHNIQUE: Computed tomography (CT) of the abdomen and pelvis was performed without intravenous contr ast. Automated exposure control and iterative reconstruction technique were employed. The dose-length product was 475.44 mGy-cm. COMPARISON: CT abdomen and pelvis 10/14/2023 FINDINGS: The visualized portions of the lung bases demonstrate minimal atelectasis. No pleural effus ion. The heart size is normal. No pericardial effusion. There is diffuse hepatic steatosis. There are changes of cholecystectomy. The spleen, pancreas, adrenal glands, and kidneys are normal. There is a urolithiasis. There are no dilated loops of bowel. The appendix is normal. There is mild aortic athe rosclerosis. There are no pathologically enlarged lymph nodes. There is no free intraperitoneal fluid . There is mild chronic anterior wedging of multiple vertebral bodies. There is mild lumbar and thora cic spondylosis. IMPRESSION: 1. No urolithiasis. 2. Diffuse hepatic steatosis. Reviewed, dictated and finalized at location A.
[2023-11-11 03:18] VITALS: BP 193/114; PULSE 76; RESP 16; TEMP 36.6; O2SAT 100
[2023-11-11 03:29] VITALS: BP 165/117
[2023-11-11 03:33] LABS: Basophils Absolute Auto 0.1 K/mm3 (0.0-0.1); Basophils Percent Auto 0.6 % (0.2-1.2); Eosinophils Absolute Auto 0.2 K/mm3 (0-0.3); Eosinophils Percent Auto 1.8 % (0-4.4); Hematocrit 44.5 % (37.0-47.0); Hemoglobin 15.6 g/dL (12.0-15.0); Immature Granulocyte Absolute 0.01 K/mm3 (0.00-0.031); Immature Granulocyte Percent A 0.1 % (0-0.5); Lymphocytes Absolute Auto 3.96 K/mm3 (0.9-3.2); Lymphocytes Percent Auto 41.3 % (18.3-44.2); Mean Corpuscular HGB Conc 35.1 g/dl (32-36); Mean Corpuscular Hemoglobin 31.1 pg (26-34); Mean Corpuscular Volume 88.8 fl (80-100); Mean Platelet Volume 9.5 fl (7.4-10.4); Monocytes Absolute Auto 0.8 K/mm3 (0.1-0.6); Neutrophils Absolute Auto 4.6 K/mm3 (1.3-6.7); Neutrophils Percent Auto 48.2 % (45.5-73.1); Platelet Count Result 304 k/mm3 (150-375); Red Blood Count 5.01 M/mm3 (4.2-5.4); Red Cell Distribution Width 12.6 % (11.5-14.5); White Blood Count 9.6 K/mm3 (4.5-10.0)
[2023-11-11 03:46] LABS: Alanine Aminotransferase 45 U/L (6-35); Albumin Level 4.9 g/dL (3.5-5.1); Alkaline Phosphatase 101 U/L (38-126); Anion Gap 9 mmol/L (4-12); Aspartate Amino Transferase 31 U/L (14-36); Bilirubin,Total 0.6 mg/dL (0.2-1.3); Blood Urea Nitrogen 13 mg/dL (7-17); Calcium 9.7 mg/dL (8.4-10.2); Carbon Dioxide 24 mmol/L (22-30); Chloride 105 mmol/L (98-107); Estimated CRCL calculation 102 ml/min; Estimated Glomerular Filt Rate > 60; Glucose 91 mg/dL (65-110); Lipase 152 U/L (23-300); Potassium 3.4 mmol/L (3.4-5.0); Sodium 138 mmol/L (137-145)
[2023-11-11 03:53] LABS: Appearance Urine Cloudy (Clear); Bacteria Urine None Seen /hpf; Bilirubin Urine Negative (Negative); Blood Urine Negative (Negative); Color Urine Yellow (Yellow); Glucose Urine UA Negative (Negative); Ketones Urine Negative (Negative); Leukocyte Esterase Ur Negative LEU/UL (Negative); Nitrate Urine Negative (Negative); Non Pathogenic Casts 0-2; Protein Urine Trace mg/dL (Negative); RBC Urine 0-2 /hpf (0-2); Squamous Epithelial Cell Urine Few /hpf (Few); pH Urine 5.5 (5.0-9.0)
[2023-11-11 04:31] LABS: Specific Grav Ur 1.034 (1.001-1.035)
[2023-11-11 04:32] VITALS: BP 196/122; PULSE 77; RESP 14; TEMP 36.6; O2SAT 99
[2023-11-11 04:32] LABS: Add Urine Microscopic? YES
[2023-11-11] MEDS: SODIUM CHLORIDE 0.9% IV 1,000 ML 999 ML IV CONT (05:12)
[2023-11-11] MEDS: ONDANSETRON INJ 4 MG/2 ML VIAL IV PUSH (05:13)
[2023-11-11] MEDS: HYDROmorphone HCL INJ (*CRX) 1 MG/ML SYR IV PUSH (05:14)
[2023-11-11] MEDS: ACETAMINOPHEN 500 MG TABLET 1000 MG PO (05:15)
[2023-11-11 06:35] VITALS: BP 173/107; PULSE 66; RESP 17; O2SAT 97
--- NOTE | 2023-11-11 06:53 | ED.GENADULT ---
HPI - General Adult General Chief complaint: Abdominal Pain Stated complaint: kidney stone Time Seen by Provider: 11/11/23 05:07 History of Present Illness HPI narrative: This is a 43-year-old female history of frequent kidney stones and urinary tract infections presenting with left-sided flank pain. Woke up from sleep at 3:00 a.m.. Sharp pain in the left lower quadrant and left lower back. She relates this to previous kidney stone pain. Patient notes urinary urgency and frequency but no dysuria. Related Data Home Medications Medication Instructions Recorded Confirmed multivitamin 1 tablet PO DAILY 04/04/22 09/21/23 acetaminophen 650 mg 650 mg PO Q8H PRN Pain 12/31/22 09/21/23 tablet,extended release ibuprofen 800 mg tablet 200 mg PO TID PRN pain 12/31/22 09/21/23 tamsulosin 0.4 mg capsule (Flomax) 0.4 mg PO DAILY 09/21/23 09/21/23 Allergies Allergy/AdvReac Type Severity Reaction Status Date / Time ketorolac [From Toradol] Allergy Headache,Rash, Verified 10/14/23 12:54 Swollen tongue tramadol AdvReac Mild VOMITING/HE Verified 10/14/23 12:54 ADACHE hydralazine AdvReac Headache Verified 10/14/23 12:54 PMFSH Past Medical History Medical History Depression Gastroesophageal reflux disease Hypertension Multiple kidney stones Obesity Seasonal allergies Sleep paralysis, recurrent isolated Smoker Surgical History Surgical History History of section 2000, 2001, 2009 History of endometrial ablation (2009) History of hysterectomy (2015) History of laparoscopic cholecystectomy on 04/25/23 PDC History of open reduction and internal fixation (ORIF) procedure (2012) Left elbow. History of tubal ligation Status post cystoscopy with ureteral stent placement Family History Family History Mother Diabetes mellitus Depression Alcoholism Father Hypertension Sibling Congenital heart disease Son Asthma Grandparent Diabetes mellitus Cerebrovascular accident Social History Social History Social History: Surrogate medical decision maker: Bang Luke, spouse. Code status: Full code. Smoking packs per day: 0.5 Smoking cigarettes per day: 10.0 Years smoked: 32 Smoking pack-years: 16.00 Smoking status: Current every day smoker Tobacco type: cigarettes Alcohol intake: never Alcohol use details: Social alcohol use in moderation. Substance use: never Substance use type: does not use Do You Feel Safe in your Home?: Yes Lack of Transportation: No Lack of Food: Never True Current Housing: I Have Housing Concerned About Future Housing: No Difficulty Paying Gas/Electric Bills: No Difficulty Paying for Meds: No Currently Unemployed: No Education: High School Diploma/GED Difficulty w/ Childcare or Family Care: No Living arrangements: with family Spiritual care concerns: No Exam Narrative: APPEARANCE: No apparent distress. Head: atraumatic. EYES: EOMI, NOSE: Atraumatic NECK: Trachea midline RESPIRATORY: No increased rate of breathing CARDIOVASCULAR: RRR, ABDOMINAL: Abdomen is soft nontender no guarding or rebound, no CVA time MUSCULOSKELETAl: No obvious deformities NEURO: Alert. Moving 4/4 extremities SKIN:: Warm, dry. Normal color PSYCHIATRIC: Normal affect Course Vital Signs Vital signs: Vital Signs Temperature 97.8 F 11/11/23 03:18 Pulse Rate 76 11/11/23 03:18 Respiratory Rate 16 11/11/23 03:18 Blood Pressure 193/114 H 11/11/23 03:18 Pulse Oximetry 100 11/11/23 03:18 Oxygen Delivery Room Air 11/11/23 03:18 Temperature 97.8 F 11/11/23 04:32 Pulse Rate 66 11/11/23 06:35 Respiratory Rate 17 11/11/23 06:35 Blood Pressure 173/107 H 11/11/23 06:35 Pulse Oximetry 97 11/11/23 06:35 Oxygen Delivery Room Air 11/11/23 03
== END 2023-11-11 07:17 | disposition home or self-care (01) ==
PROVIDERS: Emergency Provider Emergency Medicine; PCP Internal Medicine
DX: R10.32 Left lower quadrant pain (principal); M54.50 Low back pain, unspecified; I10 Essential (primary) hypertension; E66.9 Obesity, unspecified; Z68.31 Body mass index [BMI] 31.0-31.9, adult; K21.9 Gastro-esophageal reflux disease without esophagitis; G47.53 Recurrent isolated sleep paralysis; F17.210 Nicotine dependence, cigarettes, uncomplicated; Z87.442 Personal history of urinary calculi; Z90.49 Acquired absence of other specified parts of digestive tract; Z90.710 Acquired absence of both cervix and uterus; K76.0 Fatty (change of) liver, not elsewhere classified
CPT/HCPCS: 36415; 74176; 80053; 81001; 81025; 83690; 85025; 87086; 96361; 96374; 96375; 99284; A9270; J1170; J2405; J7030

== ENCOUNTER 2023-12-14 15:38 | Emergency (ER) | payer MEDICAID, SELFPAY ==
[2023-12-14] VITALS (20 sets, daily range): BP systolic 175–227; BP diastolic 110–147; PULSE 69–96; RESP 10–24; TEMP 36.7; O2SAT 92–99
--- NOTE | ~2023-12-14 | CT_ITS ---
EXAMINATION: CT abdomen pelvis w con DATE: 12/14/2023 17:14 INDICATION: left flank pain, vomiting TECHNIQUE: Computed tomography (CT) of the abdomen and pelvis was performed with 100 mL Omnipaque-350 intravenous contrast. Automated exposure control and iterative reconstruction technique were employe d. The dose-length product was 530.24 mGy-cm. COMPARISON: 11/11/2023. FINDINGS: Lower thorax: Unremarkable Liver: Enlarged. Diffusely low-density parenchyma. Biliary/Gallbladder: Gallbladder is absent. No bile duct dilation. Pancreas: No mass or duct dilation. Spleen: Normal. Adrenals:No mass. Kidneys: No suspicious mass, obstructing stone, or hydronephrosis. Right midpole hypodensity, too sma ll to characterize but likely represents a cyst. GI tract: Fat fluid levels noted in multiple loops of small bowel. No small or large bowel dilation o r wall thickening. Normal appendix. Diverticulosis without diverticulitis. Mesentery/Peritoneum: No ascites, mass, or free air. Retroperitoneum: No mass. Pelvis: Absent uterus. Normal left ovary with a simple appearing 3.6 cm ovarian cyst. Right ovary not visualized. Mostly empty urinary bladder. Soft Tissues: Soft tissues and body wall unremarkable. Bones: No acute osseous finding. IMPRESSION: Hepatomegaly with steatosis. Fat fluid levels in multiple loops of small bowel, may represent ingested material or some component of acute/chronic malabsorption. Reviewed, dictated and finalized at location K. IMPRESSION: Hepatomegaly with steatosis. Fat fluid levels in multiple loops of small bowel, may represent ingested mater ial or some component of acute/chronic malabsorption.
--- NOTE | ~2023-12-14 | US_ITS ---
EXAMINATION: US pelvic limited DATE: 12/14/2023 18:28 INDICATION: left abdominal pain/flank pain, r/o torsion TECHNIQUE: Multiple transabdominal and endovaginal sonographic images of the pelvis were obtained. COMPARISON: CT abdomen and pelvis, same date. FINDINGS: Uterus: Surgically absent. Right Ovary: Surgically absent. No adnexal mass. Left Ovary: 4.3 x 3.5 x 2.8 cm. Vascular flow is present. 3.5 cm simple cyst. There is no free fluid in the pelvis. IMPRESSION: Status post hysterectomy and right oophorectomy. Otherwise normal pelvic ultrasound findings. Reviewed, dictated and finalized at location K. IMPRESSION: Status post hysterectomy and right oophorectomy. Otherwise normal pelvic ultras ound findings.
--- NOTE | 2023-12-14 15:52 | PC.NURSE ---
Notified Glo Marrufo of patient blood pressure being 200s/100s. Patient has history of HTN and denies any other complaints besides left flank pain at this time. Patient alert and oriented x4.
[2023-12-14] MEDS: MORPHINE SULFATE (*CRX) 4 MG/ML INJ IV PUSH (16:04)
[2023-12-14] MEDS: ONDANSETRON INJ 4 MG/2 ML VIAL IV PUSH (16:05)
[2023-12-14 16:06] LABS: Basophils Absolute Auto 0.1 K/mm3 (0.0-0.1); Basophils Percent Auto 0.6 % (0.2-1.2); Eosinophils Absolute Auto 0.1 K/mm3 (0-0.3); Eosinophils Percent Auto 1.3 % (0-4.4); Hematocrit 42.9 % (37.0-47.0); Hemoglobin 14.8 g/dL (12.0-15.0); Immature Granulocyte Absolute 0.03 K/mm3 (0.00-0.031); Immature Granulocyte Percent A 0.3 % (0-0.5); Lymphocytes Absolute Auto 2.13 K/mm3 (0.9-3.2); Lymphocytes Percent Auto 21.7 % (18.3-44.2); Mean Corpuscular HGB Conc 34.5 g/dl (32-36); Mean Corpuscular Hemoglobin 30.9 pg (26-34); Mean Corpuscular Volume 89.6 fl (80-100); Mean Platelet Volume 9.5 fl (7.4-10.4); Monocytes Absolute Auto 0.8 K/mm3 (0.1-0.6); Neutrophils Absolute Auto 6.7 K/mm3 (1.3-6.7); Neutrophils Percent Auto 68.1 % (45.5-73.1); Platelet Count Result 262 k/mm3 (150-375); Red Blood Count 4.79 M/mm3 (4.2-5.4); Red Cell Distribution Width 12.5 % (11.5-14.5); White Blood Count 9.8 K/mm3 (4.5-10.0)
[2023-12-14 16:20] LABS: Appearance Urine Cloudy (Clear); Bacteria Urine Rare /hpf; Bilirubin Urine Negative (Negative); Blood Urine Negative (Negative); Color Urine Yellow (Yellow); Glucose Urine UA Negative (Negative); Ketones Urine Trace mg/dL (Negative); Leukocyte Esterase Ur Negative LEU/UL (Negative); Nitrate Urine Negative (Negative); Non Pathogenic Casts 0-2; Protein Urine Negative (Negative); RBC Urine 0-2 /hpf (0-2); Specific Grav Ur 1.028 (1.001-1.035); Squamous Epithelial Cell Urine Few /hpf (Few); WBC Urine 0-5 /hpf (0-3); pH Urine 5.5 (5.0-9.0)
[2023-12-14 16:24] LABS: Alanine Aminotransferase 45 U/L (6-35); Albumin Level 4.7 g/dL (3.5-5.1); Alkaline Phosphatase 83 U/L (38-126); Anion Gap 10 mmol/L (4-12); Aspartate Amino Transferase 35 U/L (14-36); Bilirubin,Total 0.6 mg/dL (0.2-1.3); Blood Urea Nitrogen 14 mg/dL (7-17); Calcium 9.5 mg/dL (8.4-10.2); Carbon Dioxide 20 mmol/L (22-30); Chloride 111 mmol/L (98-107); Estimated CRCL calculation 103 ml/min; Estimated Glomerular Filt Rate > 60; Glucose 96 mg/dL (65-110); Lipase 128 U/L (23-300); Potassium 3.6 mmol/L (3.4-5.0); Sodium 141 mmol/L (137-145)
--- NOTE | 2023-12-14 16:25 | ED.BACK ---
HPI - Back Pain/Injury General Chief Complaint: Back Pain/Injury Stated Complaint: left flank pain Time Seen by Provider: 12/14/23 15:48 Source: patient Mode of arrival: ambulatory Limitations: no limitations History of Present Illness HPI Narrative: This is a 43 year old female that presents to the ER for left flank pain. Ongoing since yesterday. Associated with nausea and vomiting. Reports history of kidney stones. Reports some difficulty urinating. Denies fever or hematuria. Related Data Home Medications Medication Instructions Recorded Confirmed multivitamin 1 tablet PO DAILY 04/04/22 09/21/23 acetaminophen 650 mg 650 mg PO Q8H PRN Pain 12/31/22 09/21/23 tablet,extended release ibuprofen 800 mg tablet 200 mg PO TID PRN pain 12/31/22 09/21/23 tamsulosin 0.4 mg capsule (Flomax) 0.4 mg PO DAILY 09/21/23 09/21/23 Allergies Allergy/AdvReac Type Severity Reaction Status Date / Time ketorolac [From Toradol] Allergy Headache,Rash, Verified 12/14/23 15:43 Swollen tongue tramadol AdvReac Mild VOMITING/HE Verified 12/14/23 15:43 ADACHE hydralazine AdvReac Headache Verified 12/14/23 15:43 Review of Systems Review of Systems: CONSTITUTIONAL: Denies fever GASTROINTESTINAL: Reports abdominal pain, nausea, vomiting GENITOURINARY: Denies dysuria or hematuria. All systems reviewed & are unremarkable except as noted in HPI and below PMFSH Past Medical History Medical History Depression Gastroesophageal reflux disease Hypertension Multiple kidney stones Obesity Seasonal allergies Sleep paralysis, recurrent isolated Smoker Surgical History Surgical History History of section 2001, 2002, 2010 History of endometrial ablation (2009) History of hysterectomy (2015) History of laparoscopic cholecystectomy on 04/25/23 PDC History of open reduction and internal fixation (ORIF) procedure (2012) Left elbow. History of tubal ligation Status post cystoscopy with ureteral stent placement Family History Family History Mother Diabetes mellitus Depression Alcoholism Father Hypertension Sibling Congenital heart disease Son Asthma Grandparent Diabetes mellitus Cerebrovascular accident Social History Social History Social History: Surrogate medical decision maker: Bang Luke, spouse. Code status: Full code. Smoking packs per day: 0.5 Smoking cigarettes per day: 10.0 Years smoked: 32 Smoking pack-years: 16.00 Smoking status: Current every day smoker Tobacco type: cigarettes Alcohol intake: never Alcohol use details: Social alcohol use in moderation. Substance use: never Substance use type: does not use Do You Feel Safe in your Home?: Yes Lack of Transportation: No Lack of Food: Never True Current Housing: I Have Housing Concerned About Future Housing: No Difficulty Paying Gas/Electric Bills: No Difficulty Paying for Meds: No Currently Unemployed: No Education: High School Diploma/GED Difficulty w/ Childcare or Family Care: No Living arrangements: with family Spiritual care concerns: No Exam Narrative: GENERAL: Well-appearing, well-nourished, and in no acute distress. HEAD: Normocephalic, atraumatic. EYES: EOMI. CHEST: Clear to auscultation. No respiratory distress. No wheezes rales or rhonchi HEART: Regular rate and rhythm. No murmur heard. Normal peripheral pulses. ABDOMEN: Soft, nontender, nondistended, normal active bowel sounds. No CVA tenderness EXTREMITIES: Normal range of motion. No edema. SKIN: Warm, dry, no rash. NEURO: No focal deficits. Alert and oriented x3. Normal gait PSYCH: Normal mood and affect Course Vital Signs Vital signs: Vital Signs Temperature 98.0 F 12/14/23 15:40 Pulse Rate 91 12/14/23 15:40 Respiratory Rate 18 0
[2023-12-14 16:42] LABS: Add Urine Microscopic? YES
[2023-12-14] MEDS: SODIUM CHLORIDE 0.9% IV 1,000 ML 999 ML IV CONT (16:55)
[2023-12-14] MEDS: HYDROmorphone HCL INJ (*CRX) 1 MG/ML SYR 0.5 MG IV PUSH (17:27)
[2023-12-14] MEDS: LOSARTAN POTASSIUM 50 MG TABLET PO (19:20)
[2023-12-14] MEDS: diazePAM INJ (*CRX) 10 MG/2 ML SYRINGE 5 MG IV PUSH (19:20)
== END 2023-12-14 19:45 | disposition home or self-care (01) ==
PROVIDERS: Emergency Provider Physician Assistant; PCP Internal Medicine
DX: R10.9 Unspecified abdominal pain (principal); G89.29 Other chronic pain; I10 Essential (primary) hypertension; E66.9 Obesity, unspecified; Z68.31 Body mass index [BMI] 31.0-31.9, adult; K21.9 Gastro-esophageal reflux disease without esophagitis; G47.53 Recurrent isolated sleep paralysis; F17.210 Nicotine dependence, cigarettes, uncomplicated; Z87.442 Personal history of urinary calculi; Z90.710 Acquired absence of both cervix and uterus; K76.0 Fatty (change of) liver, not elsewhere classified; Z90.721 Acquired absence of ovaries, unilateral
CPT/HCPCS: 36415; 74177; 76857; 80053; 81001; 81025; 83690; 85025; 96361; 96374; 96375; 99284; A9270; J1170; J2270; J2405; J3360; J7030; Q9967

== ENCOUNTER 2024-02-07 19:57 | Emergency (ER) | payer OTHER, SELFPAY ==
--- NOTE | ~2024-02-07 | CT_ITS ---
CT abdomen pelvis wo con Ordering provider: Jose Roa MD History: 43 years Female with . Right flank pain, recent kidney stone . Comparison: December 14, 2023 Technique: CT abdomen and pelvis with IV and without oral contrast. Automated exposure control and it erative reconstruction technique were employed. The dose-length product was 464.73 mGy-cm. Findings: VISUALIZED LOWER CHEST: Normal. UPPER ABDOMINAL ORGANS: Liver: Fat infiltration. Hepatomegaly. Gallbladder: Status post cholecystectomy Spleen: Normal. Stomach/duodenum: Normal. Pancreas: Normal. Adrenals: Normal. Kidneys: Normal. PELVIC ORGANS: The bladder is normal. Left ovarian cyst measuring 3.4 cm. BOWEL AND MESENTERY: Colon: Mild sigmoid diverticulosis without diverticulitis. Fluid seen in the large bowel which may in dicate diarrhea. Normal appendix. Small Bowel: Fluid seen in the small bowel with minimal dilatation the genital area. Enteritis is not excluded. Follow-up advised. No obstruction. Peritoneum/mesentery: No free air or free fluid. No mesenteric lymphadenopathy. RETROPERITONEUM: Mild atheromatous disease of the abdominal aorta. No retroperitoneal lymphadenopat hy. MUSCULOSKELETAL: Superficial soft tissues: The superficial soft tissues are normal. Bones: Age appropriate degenerative changes of the spine. Left sacroiliitis. IMPRESSION: 1. Fluid in the right side of the colon with fluid in the small bowel and minimal dilatation of the jejunal loops which may indicate enteritis. Follow-up advised. The area is also possible. Clinical co rrelation advised. 2. Hepatomegaly. Fat infiltration. 3. No kidney stones. Reviewed, dictated and finalized at location A. IMPRESSION: 1. Fluid in the right side of the colon with fluid in the small bowel and mini mal dilatation of the jejunal loops which may indicate enteritis. Follow-up adv ised. The area is also possible. Clinical correlation advised. 2. Hepatomegaly. Fat infiltration. 3. No kidney stones.
[2024-02-07 20:26] VITALS: BP 174/117; PULSE 90; RESP 19; TEMP 36.5; O2SAT 100
[2024-02-07 22:35] LABS: Basophils Percent Auto 0.4 % (0.2-1.2); Eosinophils Absolute Auto 0.2 K/mm3 (0-0.3); Hematocrit 40.7 % (37.0-47.0); Hemoglobin 14.4 g/dL (12.0-15.0); Immature Granulocyte Absolute 0.02 K/mm3 (0.00-0.031); Immature Granulocyte Percent A 0.2 % (0-0.5); Lymphocytes Absolute Auto 2.15 K/mm3 (0.9-3.2); Lymphocytes Percent Auto 26.7 % (18.3-44.2); Mean Corpuscular HGB Conc 35.4 g/dl (32-36); Mean Corpuscular Hemoglobin 30.6 pg (26-34); Mean Corpuscular Volume 86.6 fl (80-100); Mean Platelet Volume 9.1 fl (7.4-10.4); Monocytes Absolute Auto 0.8 K/mm3 (0.1-0.6); Monocytes Percent Auto 9.7 % (2.6-8.5); Neutrophils Absolute Auto 4.9 K/mm3 (1.3-6.7); Platelet Count Result 232 k/mm3 (150-375); Red Cell Distribution Width 11.8 % (11.5-14.5); White Blood Count 8.1 K/mm3 (4.5-10.0)
[2024-02-07 22:55] LABS: Alanine Aminotransferase 53 U/L (6-35); Albumin Level 4.2 g/dL (3.5-5.1); Alkaline Phosphatase 83 U/L (38-126); Anion Gap 7 mmol/L (4-12); Aspartate Amino Transferase 31 U/L (14-36); Bilirubin,Total 0.5 mg/dL (0.2-1.3); Blood Urea Nitrogen 13 mg/dL (7-17); Calcium 9.1 mg/dL (8.4-10.2); Carbon Dioxide 27 mmol/L (22-30); Chloride 105 mmol/L (98-107); Estimated CRCL calculation 103 ml/min; Estimated Glomerular Filt Rate > 60; Glucose 80 mg/dL (65-110); Potassium 3.3 mmol/L (3.4-5.0); Sodium 139 mmol/L (137-145)
[2024-02-07] MEDS: HYDROmorphone HCL INJ (*CRX) 1 MG/ML SYR IV PUSH (23:05)
[2024-02-07] MEDS: ONDANSETRON INJ 4 MG/2 ML VIAL IV PUSH (23:05)
[2024-02-07] MEDS: SODIUM CHLORIDE 0.9% IV 1,000 ML 999 ML IV CONT (23:05)
--- NOTE | 2024-02-08 00:03 | ED.GENADULT ---
HPI - General Adult General Chief complaint: Urogenital-Female Stated complaint: flank pain Time Seen by Provider: 02/07/24 22:30 History of Present Illness HPI narrative: Patient a 43-year-old female presents emergency department with chief complaint of flank pain. Patient reports he is having pain in the right flank area patient reports she was seen [facility] and found to have a small 2 mm stone patient reports that she called her urologist and reports she was still having worsening pain and some nausea vomiting patient denies fever denies blood in her urine denies dysuria Related Data Home Medications Medication Instructions Recorded Confirmed multivitamin 1 tablet PO DAILY 04/04/22 12/31/23 acetaminophen 650 mg 650 mg PO Q8H PRN Pain 12/31/22 12/31/23 tablet,extended release ibuprofen 800 mg tablet 200 mg PO TID PRN pain 12/31/22 12/31/23 tamsulosin 0.4 mg capsule (Flomax) 0.4 mg PO DAILY 09/21/23 12/31/23 Allergies Allergy/AdvReac Type Severity Reaction Status Date / Time ketorolac [From Toradol] Allergy Headache,Rash, Verified 02/07/24 20:32 Swollen tongue tramadol AdvReac Mild VOMITING/HE Verified 02/07/24 20:32 ADACHE hydralazine AdvReac Headache Verified 02/07/24 20:32 Review of Systems Review of Systems: A 10 system review of systems was completed on the patient and is negative except for what is stated in the HPI. Nursing and ancillary documentation was reviewed. PMFSH Past Medical History Medical History Depression Gastroesophageal reflux disease Hypertension Multiple kidney stones Obesity Seasonal allergies Sleep paralysis, recurrent isolated Smoker Surgical History Surgical History History of section 2001, 2002, 2010 History of endometrial ablation (2009) History of hysterectomy (2015) History of laparoscopic cholecystectomy on 04/25/23 PDC History of open reduction and internal fixation (ORIF) procedure (2012) Left elbow. History of tubal ligation Status post cystoscopy with ureteral stent placement Family History Family History Mother Diabetes mellitus Depression Alcoholism Father Hypertension Sibling Congenital heart disease Son Asthma Grandparent Diabetes mellitus Cerebrovascular accident Social History Social History Social History: Surrogate medical decision maker: Bang Luke, spouse. Code status: Full code. Smoking packs per day: 0.5 Smoking cigarettes per day: 10.0 Years smoked: 32 Smoking pack-years: 16.00 Smoking status: Current every day smoker Tobacco type: cigarettes Alcohol intake: never Alcohol use details: Social alcohol use in moderation. Substance use: never Substance use type: does not use Do You Feel Safe in your Home?: Yes Lack of Transportation: No Lack of Food: Never True Current Housing: I Have Housing Concerned About Future Housing: No Difficulty Paying Gas/Electric Bills: No Difficulty Paying for Meds: No Currently Unemployed: No Education: High School Diploma/GED Difficulty w/ Childcare or Family Care: No Living arrangements: with family Spiritual care concerns: No Exam Narrative: GENERAL: Well-appearing, well-nourished, and in no acute distress. HEAD: Normocephalic, atraumatic. EYES: PERRLA and EOMI. ENT: Nares clear, no rhinorrhea or epistaxis. Mucous membranes moist. NECK: Supple. CHEST: Clear to auscultation. No respiratory distress. HEART: Regular rate and rhythm. No murmur heard. Normal peripheral pulses. ABDOMEN: Soft, nontender, nondistended, normal active bowel sounds. EXTREMITIES: Normal range of motion. No edema. SKIN: Warm, dry, no rash. NEURO: No focal deficits. Alert and oriented x3. PSYCH: Normal mood and affect. Course Vital Si
[2024-02-08 01:36] LABS: Appearance Urine Turbid (Clear); Bacteria Urine 2+ /hpf; Bilirubin Urine Negative (Negative); Blood Urine Non-Hemolyzed Trace (Negative); Calcium Oxalate Crystals Urine Present /hpf; Color Urine Yellow (Yellow); Glucose Urine UA Negative (Negative); Ketones Urine Trace mg/dL (Negative); Leukocyte Esterase Ur Negative LEU/UL (Negative); Need Manual Microscopic Reviewed; Nitrate Urine Negative (Negative); Non Pathogenic Casts 0-2; Protein Urine Negative (Negative); Specific Grav Ur 1.028 (1.001-1.035); Squamous Epithelial Cell Urine Few /hpf (Few); Urobilinogen Urine 0.2 mg/dL (<2.0); WBC Urine 0-5 /hpf (0-3); pH Urine 5.5 (5.0-9.0)
[2024-02-08 01:42] LABS: Add Urine Microscopic? YES
[2024-02-08] MEDS: HYDROmorphone HCL INJ (*CRX) 1 MG/ML SYR IV PUSH (02:00)
== END 2024-02-08 02:35 | disposition home or self-care (01) ==
PROVIDERS: Emergency Provider Emergency Medicine; PCP Internal Medicine
DX: R10.9 Unspecified abdominal pain (principal); I10 Essential (primary) hypertension; E66.9 Obesity, unspecified; Z68.31 Body mass index [BMI] 31.0-31.9, adult; K21.9 Gastro-esophageal reflux disease without esophagitis; G47.53 Recurrent isolated sleep paralysis; F17.210 Nicotine dependence, cigarettes, uncomplicated; Z87.442 Personal history of urinary calculi; Z90.49 Acquired absence of other specified parts of digestive tract; Z90.710 Acquired absence of both cervix and uterus; Z79.899 Other long term (current) 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; K76.0 Fatty (change of) liver, not elsewhere classified
CPT/HCPCS: 36415; 74176; 80053; 81001; 81025; 85025; 96361; 96374; 96375; 99284; J1170; J2405; J7030

== ENCOUNTER 2024-02-14 19:40 | Emergency (ER) | payer OTHER, SELFPAY ==
[2024-02-14 19:55] VITALS: BP 218/125; PULSE 89; RESP 20; TEMP 36.4; O2SAT 100
[2024-02-14 20:42] LABS: Appearance Urine Cloudy (Clear); Bacteria Urine None Seen /hpf; Bilirubin Urine Negative (Negative); Blood Urine 2+ (Negative); Color Urine Yellow (Yellow); Glucose Urine UA Negative (Negative); Ketones Urine Negative (Negative); Leukocyte Esterase Ur Trace LEU/UL (Negative); Nitrate Urine Negative (Negative); Non Pathogenic Casts 0-2; Protein Urine Negative (Negative); RBC Urine 21-50 /hpf (0-2); Specific Grav Ur 1.015 (1.001-1.035); Squamous Epithelial Cell Urine Moderate /hpf (Few); Urobilinogen Urine 0.2 mg/dL (<2.0); pH Urine 5.5 (5.0-9.0)
[2024-02-14] MEDS: LABETALOL HCL INJ 100 MG/20 ML VIAL 20 MG IV PUSH (20:51)
[2024-02-14 20:54] LABS: Basophils Percent Auto 0.3 % (0.2-1.2); Eosinophils Absolute Auto 0.1 K/mm3 (0-0.3); Eosinophils Percent Auto 1.7 % (0-4.4); Hematocrit 40.9 % (37.0-47.0); Hemoglobin 14.4 g/dL (12.0-15.0); Immature Granulocyte Absolute 0.03 K/mm3 (0.00-0.031); Immature Granulocyte Percent A 0.4 % (0-0.5); Lymphocytes Absolute Auto 1.57 K/mm3 (0.9-3.2); Lymphocytes Percent Auto 20.8 % (18.3-44.2); Mean Corpuscular HGB Conc 35.2 g/dl (32-36); Mean Corpuscular Hemoglobin 30.8 pg (26-34); Mean Corpuscular Volume 87.4 fl (80-100); Mean Platelet Volume 9.2 fl (7.4-10.4); Monocytes Absolute Auto 0.5 K/mm3 (0.1-0.6); Monocytes Percent Auto 6.6 % (2.6-8.5); Neutrophils Absolute Auto 5.3 K/mm3 (1.3-6.7); Neutrophils Percent Auto 70.2 % (45.5-73.1); Platelet Count Result 236 k/mm3 (150-375); Red Blood Count 4.68 M/mm3 (4.2-5.4); Red Cell Distribution Width 12.1 % (11.5-14.5); White Blood Count 7.6 K/mm3 (4.5-10.0)
[2024-02-14 20:57] LABS: Add Urine Microscopic? YES
[2024-02-14 21:05] LABS: Alanine Aminotransferase 41 U/L (6-35); Albumin Level 4.4 g/dL (3.5-5.1); Alkaline Phosphatase 82 U/L (38-126); Anion Gap 7 mmol/L (4-12); Aspartate Amino Transferase 34 U/L (14-36); Bilirubin,Total 0.4 mg/dL (0.2-1.3); Blood Urea Nitrogen 10 mg/dL (7-17); Calcium 9.5 mg/dL (8.4-10.2); Carbon Dioxide 25 mmol/L (22-30); Chloride 107 mmol/L (98-107); Estimated CRCL calculation 104 ml/min; Estimated Glomerular Filt Rate > 60; Glucose 123 mg/dL (65-110); Potassium 3.6 mmol/L (3.4-5.0); Sodium 139 mmol/L (137-145)
[2024-02-14 21:08] VITALS: BP 192/109; PULSE 71; RESP 18; O2SAT 95
[2024-02-14] MEDS: LABETALOL HCL INJ 100 MG/20 ML VIAL 40 MG IV PUSH (21:32)
[2024-02-14] MEDS: SODIUM CHLORIDE 0.9% IV 1,000 ML 999 ML IV CONT (21:34)
[2024-02-14] MEDS: HYDROcodone/acetaminophen (*CRX) 5-325 MG TABLET 1 TAB PO (21:39)
--- NOTE | 2024-02-14 21:41 | ED.ABDPAIN ---
HPI - Abdominal Pain General Chief Complaint: Abdominal Pain Stated Complaint: kidney stones Time Seen by Provider: 02/14/24 20:30 History of Present Illness HPI narrative: Patient is a 43-year-old female who presents to the emergency department this afternoon complaining of left flank pain. Patient states that she has a long history of kidney stones and follows up with Dr. Murphy. Patient states that she was here approximately 1 week ago and prior to that she passed a kidney stone and since then she has been having some residual pain on her right flank but worse on her left flank. Patient believes that she is now developing another small kidney stone on the left flank. She admits that lot of the times due to some scar tissue and the size of her kidney stones which are usually pretty small, CTs is not always pick them up. Patient states that she is currently taking the Flomax and ibuprofen for the pain but it is not completely helping and that she ran out of her [place] and has an appointment with Dr. Gonzalez in 3 days. She called his office today but he is not a office until. Patient is requesting pain control and a refill for her [place] until she can see her urologist. Denies any fevers or chills at home, any urinary symptoms including dysuria and denies any additional symptoms or concerns at this time. Patient recently finished a course of antibiotics that her urologist put her on. Related Data Home Medications Medication Instructions Recorded Confirmed multivitamin 1 tablet PO DAILY 04/04/22 12/31/23 acetaminophen 650 mg 650 mg PO Q8H PRN Pain 12/31/22 12/31/23 tablet,extended release ibuprofen 800 mg tablet 200 mg PO TID PRN pain 12/31/22 12/31/23 tamsulosin 0.4 mg capsule (Flomax) 0.4 mg PO DAILY 09/21/23 12/31/23 Allergies Allergy/AdvReac Type Severity Reaction Status Date / Time ketorolac [From Toradol] Allergy Headache,Rash, Verified 02/14/24 19:59 Swollen tongue tramadol AdvReac Mild VOMITING/HE Verified 02/14/24 19:59 ADACHE hydralazine AdvReac Headache Verified 02/14/24 19:59 Review of Systems Review of Systems: All systems are reviewed and are negative unless stated otherwise in the HPI. [facility] Past Medical History Medical History Depression Gastroesophageal reflux disease Hypertension Multiple kidney stones Obesity Seasonal allergies Sleep paralysis, recurrent isolated Smoker Surgical History Surgical History History of section 2001, 2001, 2009 History of endometrial ablation (2009) History of hysterectomy (2015) History of laparoscopic cholecystectomy on 04/25/23 PDC History of open reduction and internal fixation (ORIF) procedure (2012) Left elbow. History of tubal ligation Status post cystoscopy with ureteral stent placement Family History Family History Mother Diabetes mellitus Depression Alcoholism Father Hypertension Sibling Congenital heart disease Son Asthma Grandparent Diabetes mellitus Cerebrovascular accident Social History Social History Social History: Surrogate medical decision maker: Bang Luke, spouse. Code status: Full code. Smoking packs per day: 0.5 Smoking cigarettes per day: 10.0 Years smoked: 32 Smoking pack-years: 16.00 Smoking status: Current every day smoker Tobacco type: cigarettes Alcohol intake: never Alcohol use details: Social alcohol use in moderation. Substance use: never Substance use type: does not use Do You Feel Safe in your Home?: Yes Lack of Transportation: No Lack of Food: Never True Current Housing: I Have Housing Concerned About Future Housing: No Difficulty Paying Gas/Electric Bills: No Difficulty Paying for Meds: No Currently Unemployed: No Education: High School Diploma/GED Difficulty w/
[2024-02-14 22:00] VITALS: BP 191/109; PULSE 78; RESP 16; O2SAT 99
--- NOTE | 2024-02-14 22:05 | PC.NURSE ---
Patient's blood pressure at discharge was 191/109. Notified EDP Dr. Dillon who advised that patient cab be discharge and is instructed to take her blood pressure medications as soon as she gets home. Patient instructed to take her blood pressure medication and agrees to do so when she gets home.
== END 2024-02-14 22:07 | disposition home or self-care (01) ==
LOC: ANHED 21:48
PROVIDERS: Student in an Organized Health Care Education/Training Program; Emergency Provider Emergency Medicine; PCP Internal Medicine
DX: R10.9 Unspecified abdominal pain (principal); R31.9 Hematuria, unspecified; I10 Essential (primary) hypertension; E66.9 Obesity, unspecified; Z68.32 Body mass index [BMI] 32.0-32.9, adult; K21.9 Gastro-esophageal reflux disease without esophagitis; F17.210 Nicotine dependence, cigarettes, uncomplicated; Z87.442 Personal history of urinary calculi; Z90.710 Acquired absence of both cervix and uterus; Z90.49 Acquired absence of other specified parts of digestive tract; Z79.899 Other long term (current) 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
CPT/HCPCS: 36415; 80053; 81001; 81025; 85025; 87086; 96361; 96374; 96375; 99284; A9270; J7030

== ENCOUNTER 2024-03-21 16:39 | Emergency (ER) | payer MEDICAID, SELFPAY ==
--- NOTE | ~2024-03-21 | XR_ITS ---
EXAMINATION: XR elbow RT min 3V DATE: 03/21/2024 17:07 INDICATION: Right elbow pain. TECHNIQUE: 5 views of right elbow were obtained. COMPARISON: None. FINDINGS: Bone alignment is normal. No fracture. There is mild elbow joint osteoarthritis. No elbow j oint effusion. IMPRESSION: 1. Mild elbow joint osteoarthritis. Reviewed, dictated and finalized at location E.
[2024-03-21 16:40] VITALS: BP 153/113; PULSE 105; RESP 20; TEMP 36.8; O2SAT 99
--- NOTE | 2024-03-21 16:43 | PC.NURSE ---
ice pack provided
--- NOTE | 2024-03-21 19:07 | ED.UPPEXIN ---
HPI - Extremity Injury (Upper) General Chief Complaint: Extremity Injury, Upper Stated Complaint: FALL-ELBOW PAIN Time Seen by Provider: 03/21/24 18:56 History of Present Illness HPI narrative: 44-year-old female presents emergency department for right elbow pain. States prior to arrival she was about 3 ft on a step stool when she turned too quickly and stepped off a step stool, lost her balance and landed on her right upper extremity. She denies hitting her head or losing consciousness. She is reporting pain to her elbow that shoots up into her shoulder and down her forearm. She states she has tingling in her 1st through 3rd fingers and does report a known history of carpal tunnel. States it feels like carpal tunnel. She denies neck pain. She is reporting mild pain to her low back but states this is chronic. Denies saddle anesthesia, bowel or bladder incontinence or retention, lower extremity weakness. Denies other injuries acquired. She is not anticoagulated. Related Data Home Medications Medication Instructions Recorded Confirmed multivitamin 1 tablet PO DAILY 04/04/22 02/21/24 acetaminophen 650 mg 650 mg PO Q8H PRN Pain 12/31/22 02/21/24 tablet,extended release ibuprofen 800 mg tablet 200 mg PO TID PRN pain 12/31/22 02/21/24 tamsulosin 0.4 mg capsule (Flomax) 0.4 mg PO DAILY 09/21/23 02/21/24 amlodipine 10 mg tablet 10 mg PO DAILY 02/21/24 02/21/24 pregabalin 150 mg capsule 150 mg PO ONCE 02/21/24 02/21/24 Allergies Allergy/AdvReac Type Severity Reaction Status Date / Time ketorolac [From Toradol] Allergy Headache,Rash, Verified 03/21/24 16:42 Swollen tongue tramadol AdvReac Mild VOMITING/HE Verified 03/21/24 16:42 ADACHE hydralazine AdvReac Headache Verified 03/21/24 16:42 Review of Systems Review of Systems: All systems reviewed & are unremarkable except as noted in HPI and below PMFSH Past Medical History Medical History Depression Gastroesophageal reflux disease Hypertension Multiple kidney stones Obesity Seasonal allergies Sleep paralysis, recurrent isolated Smoker Surgical History Surgical History History of section 2000, 2001, 2009 History of endometrial ablation (2010) History of hysterectomy (2016) History of laparoscopic cholecystectomy on 04/25/23 PDC History of open reduction and internal fixation (ORIF) procedure (2012) Left elbow. History of tubal ligation Status post cystoscopy with ureteral stent placement Family History Family History Mother Diabetes mellitus Depression Alcoholism Father Hypertension Sibling Congenital heart disease Son Asthma Grandparent Diabetes mellitus Cerebrovascular accident Social History Social History Social History: Surrogate medical decision maker: Bang Ti, spouse. Code status: Full code. Smoking packs per day: 0.5 Smoking cigarettes per day: 10.0 Years smoked: 32 Smoking pack-years: 16.00 Smoking status: Current every day smoker Tobacco type: cigarettes Alcohol intake: never Alcohol use details: Social alcohol use in moderation. Substance use: never Substance use type: does not use Do You Feel Safe in your Home?: Yes Lack of Transportation: No Lack of Food: Never True Current Housing: I Have Housing Concerned About Future Housing: No Difficulty Paying Gas/Electric Bills: No Difficulty Paying for Meds: No Currently Unemployed: No Education: High School Diploma/GED Difficulty w/ Childcare or Family Care: No Living arrangements: with family Spiritual care concerns: No Exam Narrative: GENERAL: Well-appearing, well-nourished, and in no acute distress. HEAD: Normocephalic, atraumatic. EYES: PERRLA and EOMI. ENT: Nares clear, no rhinorrhea or epistaxis. Mucous membrane
== END 2024-03-21 19:47 | disposition home or self-care (01) ==
PROVIDERS: Emergency Provider Physician Assistant; PCP Internal Medicine
DX: M25.521 Pain in right elbow (principal); G56.01 Carpal tunnel syndrome, right upper limb; I10 Essential (primary) hypertension; F17.210 Nicotine dependence, cigarettes, uncomplicated
CPT/HCPCS: 73080; 99283

== ENCOUNTER 2024-03-23 03:29 | Emergency (ER) | payer MEDICAID, SELFPAY ==
[2024-03-23] VITALS (8 sets, daily range): BP systolic 176–224; BP diastolic 111–130; PULSE 73–103; RESP 14–22; TEMP 36.6; O2SAT 95–99
--- NOTE | ~2024-03-23 | CT_ITS ---
EXAMINATION: CT abdomen pelvis wo con DATE: 03/23/2024 04:06 INDICATION: Left flank pain. TECHNIQUE: Computed tomography (CT) of the abdomen and pelvis was performed without intravenous contr ast. Automated exposure control and iterative reconstruction technique were employed. The dose-length product was 580.35 mGy-cm. COMPARISON: CT abdomen and pelvis 02/07/2024 FINDINGS: The visualized portions of lung bases demonstrate mild atelectasis. No pleural effusion. Th e heart size is normal. No pericardial effusion. There is diffuse hepatic steatosis. There are change s of cholecystectomy. The spleen, pancreas, adrenal glands, and kidneys are normal. There is no uroli thiasis. There is diverticulosis of the colon without evidence of diverticulitis. There are no dilate d loops of bowel. The appendix is normal. There are no pathologically enlarged lymph nodes. There is no free intraperitoneal fluid. There is mild chronic anterior wedging of T12 and T11 vertebral bodies . There is moderate thoracic and lumbar spondylosis. IMPRESSION: 1. No urolithiasis. 2. Diffuse hepatic steatosis. Reviewed, dictated and finalized at location A.
[2024-03-23 03:57] LABS: Basophils Absolute Auto 0.1 K/mm3 (0.0-0.1); Basophils Percent Auto 0.5 % (0.2-1.2); Eosinophils Absolute Auto 0.3 K/mm3 (0-0.3); Eosinophils Percent Auto 2.5 % (0-4.4); Hematocrit 43.4 % (37.0-47.0); Hemoglobin 15.3 g/dL (12.0-15.0); Immature Granulocyte Absolute 0.03 K/mm3 (0.00-0.031); Immature Granulocyte Percent A 0.3 % (0-0.5); Lymphocytes Absolute Auto 3.59 K/mm3 (0.9-3.2); Lymphocytes Percent Auto 36.5 % (18.3-44.2); Mean Corpuscular HGB Conc 35.3 g/dl (32-36); Mean Corpuscular Hemoglobin 31.2 pg (26-34); Mean Corpuscular Volume 88.4 fl (80-100); Mean Platelet Volume 9.7 fl (7.4-10.4); Monocytes Absolute Auto 0.9 K/mm3 (0.1-0.6); Monocytes Percent Auto 8.7 % (2.6-8.5); Neutrophils Absolute Auto 5.1 K/mm3 (1.3-6.7); Neutrophils Percent Auto 51.5 % (45.5-73.1); Platelet Count Result 281 k/mm3 (150-375); Red Blood Count 4.91 M/mm3 (4.2-5.4); Red Cell Distribution Width 13.1 % (11.5-14.5); White Blood Count 9.8 K/mm3 (4.5-10.0)
[2024-03-23] MEDS: ONDANSETRON INJ 4 MG/2 ML VIAL IV PUSH (03:57)
[2024-03-23] MEDS: LACTATED RINGERS 1,000 ML 999 ML IV CONT (03:57)
[2024-03-23] MEDS: MORPHINE SULFATE (*CRX) 4 MG/ML INJ IV PUSH (03:57)
--- NOTE | 2024-03-23 04:01 | PC.NURSE ---
Patient taken to CT at this time via stretcher.
[2024-03-23 04:14] LABS: Alanine Aminotransferase 57 U/L (6-35); Albumin Level 4.8 g/dL (3.5-5.1); Alkaline Phosphatase 83 U/L (38-126); Anion Gap 14 mmol/L (4-12); Aspartate Amino Transferase 44 U/L (14-36); Bilirubin,Total 0.5 mg/dL (0.2-1.3); Blood Urea Nitrogen 13 mg/dL (7-17); Calcium 9.4 mg/dL (8.4-10.2); Carbon Dioxide 23 mmol/L (22-30); Chloride 103 mmol/L (98-107); Estimated CRCL calculation 102 ml/min; Estimated Glomerular Filt Rate > 60; Glucose 115 mg/dL (65-110); Lipase 141 U/L (23-300); Potassium 3.3 mmol/L (3.4-5.0); Sodium 140 mmol/L (137-145)
--- NOTE | 2024-03-23 04:29 | PC.NURSE ---
ERP aware of patients BP, no new orders.
[2024-03-23 04:42] LABS: Add Urine Microscopic? YES; Appearance Urine Cloudy (Clear); Bacteria Urine 1+ /hpf; Bilirubin Urine Negative (Negative); Blood Urine Negative (Negative); Color Urine Yellow (Yellow); Glucose Urine UA Negative (Negative); Ketones Urine Trace mg/dL (Negative); Leukocyte Esterase Ur Negative LEU/UL (Negative); Need Manual Microscopic Reviewed; Nitrate Urine Negative (Negative); Non Pathogenic Casts 0-2; Protein Urine Trace mg/dL (Negative); Specific Grav Ur 1.035 (1.001-1.035); Squamous Epithelial Cell Urine Moderate /hpf (Few); pH Urine 5.5 (5.0-9.0)
[2024-03-23] MEDS: HYDROmorphone HCL INJ (*CRX) 1 MG/ML SYR 0.5 MG IV PUSH (04:57)
--- NOTE | 2024-03-23 05:13 | ED.FEMALEGU ---
HPI - Female Genitourinary General Chief complaint: Urogenital-Female Stated complaint: flank pain Time Seen by Provider: 03/23/24 03:40 History of Present Illness HPI Narrative: Patient with history of kidney stones presents with sudden onset severe left flank pain with nausea vomiting, feels like her kidney stones. Related Data Home Medications Medication Instructions Recorded Confirmed multivitamin 1 tablet PO DAILY 04/04/22 02/21/24 acetaminophen 650 mg 650 mg PO Q8H PRN Pain 12/31/22 02/21/24 tablet,extended release ibuprofen 800 mg tablet 200 mg PO TID PRN pain 12/31/22 02/21/24 tamsulosin 0.4 mg capsule (Flomax) 0.4 mg PO DAILY 09/21/23 02/21/24 amlodipine 10 mg tablet 10 mg PO DAILY 02/21/24 02/21/24 pregabalin 150 mg capsule 150 mg PO ONCE 02/21/24 02/21/24 Allergies Allergy/AdvReac Type Severity Reaction Status Date / Time ketorolac [From Toradol] Allergy Headache,Rash, Verified 03/23/24 03:38 Swollen tongue tramadol AdvReac Mild VOMITING/HE Verified 03/23/24 03:38 ADACHE hydralazine AdvReac Headache Verified 03/23/24 03:38 Review of Systems Review of Systems: All systems reviewed & are unremarkable except as noted in HPI and below PMFSH Past Medical History Medical History Depression Gastroesophageal reflux disease Hypertension Multiple kidney stones Obesity Seasonal allergies Sleep paralysis, recurrent isolated Smoker Surgical History Surgical History History of section 2000, 2001, 2009 History of endometrial ablation (2009) History of hysterectomy (2015) History of laparoscopic cholecystectomy on 04/25/23 PDC History of open reduction and internal fixation (ORIF) procedure (2012) Left elbow. History of tubal ligation Status post cystoscopy with ureteral stent placement Family History Family History Mother Diabetes mellitus Depression Alcoholism Father Hypertension Sibling Congenital heart disease Son Asthma Grandparent Diabetes mellitus Cerebrovascular accident Social History Social History Social History: Surrogate medical decision maker: Bang Luke, spouse. Code status: Full code. Smoking packs per day: 0.5 Smoking cigarettes per day: 10.0 Years smoked: 32 Smoking pack-years: 16.00 Smoking status: Current every day smoker Tobacco type: cigarettes Alcohol intake: never Alcohol use details: Social alcohol use in moderation. Substance use: never Substance use type: does not use Do You Feel Safe in your Home?: Yes Lack of Transportation: No Lack of Food: Never True Current Housing: I Have Housing Concerned About Future Housing: No Difficulty Paying Gas/Electric Bills: No Difficulty Paying for Meds: No Currently Unemployed: No Education: High School Diploma/GED Difficulty w/ Childcare or Family Care: No Living arrangements: with family Spiritual care concerns: No Exam Narrative: EXAMINATION OF ORGAN SYSTEMS/BODY AREAS: Constitutional: Vital signs per nursing GENERAL: Appears extremely uncomfortable HEAD: Normal with no signs of head trauma. EYES: EOMI, conjunctiva normal ENT: Hearing grossly intact LUNGS: Nonlabored breathing. HEART: [Regular rate and rhythm] ABD: [Soft], CVA tenderness left EXT: Normal range of motion SKIN: [No rashes or lesions.] NEURO: [Alert and oriented x 3. No gross focal sensory or strength deficits.] PSYCH: Normal affect Course Vital Signs Vital signs: Vital Signs Temperature 97.8 F 03/23/24 03:32 Pulse Rate 96 03/23/24 03:32 Respiratory Rate 22 H 03/23/24 03:32 Blood Pressure 224/130 H 03/23/24 03:32 Pulse Oximetry 99 03/23/24 03:32 Oxygen Delivery Room Air 03/23/24 03:32 Temperature 97.8 F 03/23/24 03:32 Pulse Rate 73 03/23/24 05:3
[2024-03-23] MEDS: POTASSIUM CHLORIDE 20 MEQ ER TABLET 40 MEQ PO (05:47)
== END 2024-03-23 06:21 | disposition home or self-care (01) ==
PROVIDERS: Emergency Provider Emergency Medicine; PCP Internal Medicine
DX: N39.0 Urinary tract infection, site not specified (principal); R10.9 Unspecified abdominal pain; I10 Essential (primary) hypertension; E66.9 Obesity, unspecified; Z68.31 Body mass index [BMI] 31.0-31.9, adult; K21.9 Gastro-esophageal reflux disease without esophagitis; G47.53 Recurrent isolated sleep paralysis; F51.9 Sleep disorder not due to a substance or known physiological condition, unspecified; Z87.442 Personal history of urinary calculi; F17.210 Nicotine dependence, cigarettes, uncomplicated; Z90.710 Acquired absence of both cervix and uterus; Z90.49 Acquired absence of other specified parts of digestive tract; Z79.899 Other long term (current) 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; K76.0 Fatty (change of) liver, not elsewhere classified
CPT/HCPCS: 36415; 74176; 80053; 81001; 83690; 85025; 87086; 87088; 96361; 96365; 96375; 99284; A9270; J0696; J1170; J2270; J2405; J7120

== ENCOUNTER 2024-04-25 15:35 | Emergency (ER) | payer MEDICAID, SELFPAY ==
[2024-04-25] VITALS (10 sets, daily range): BP systolic 162; BP diastolic 111; PULSE 79–86; RESP 13–19; O2SAT 94–99
--- NOTE | ~2024-04-25 | CT_ITS ---
CT abdomen pelvis w con Ordering provider: Cecelia Fall APRN History: 44 years Female with . abdominal, back pain . Comparison: None. Technique: CT abdomen and pelvis with IV and without oral contrast. Automated exposure control and it erative reconstruction technique were employed. The dose-length product was 587.61 mGy-cm. 100 mL Omn ipaque 350 was given IV. Findings: VISUALIZED LOWER CHEST: Normal. UPPER ABDOMINAL ORGANS: Liver: Fat infiltration. Hepatomegaly. CBD measures 1 cm. Gallbladder: Status post cholecystectomy. Spleen: Normal. Stomach/duodenum: Normal. Pancreas: Normal. Adrenals: Normal. Kidneys: Normal. PELVIC ORGANS: The bladder is normal. Left ovarian cyst measuring 3.6 cm. BOWEL AND MESENTERY: Colon: No evidence of diverticulitis. Normal appendix. Small Bowel: Normal. No obstruction. Peritoneum/mesentery: No free air or free fluid. No mesenteric lymphadenopathy. RETROPERITONEUM: Mild atheromatous disease of the abdominal aorta. No retroperitoneal lymphadenopat hy. MUSCULOSKELETAL: Superficial soft tissues: The superficial soft tissues are normal. Bones: Age appropriate degenerative changes of the spine. Bilateral facet joint disease at the level of L4-L5 and L5-S1. IMPRESSION: 1. No evidence of appendicitis, diverticulitis or intestinal obstruction. 2. Fat infiltration of the liver. Hepatomegaly. 3. Left ovarian cyst. Reviewed, dictated and finalized at location A.
--- NOTE | ~2024-04-25 | XR_ITS ---
XR abdomen/kub 1V Ordering provider: Cecelia Fall APRN History: . R flank pain . Comparison: August 20, 2022 FINDINGS: BOWEL: Nonobstructive bowel gas pattern. ORGANOMEGALY: None. SIGNIFICANT PATHOLOGIC CALCIFICATIONS: Calcification of postoperative changes seen projecting over th e right kidney. OTHER: No free air is seen under the diaphragm. Contrast is seen In both pelvic calyceal systems and in the urinary bladder. No evidence of obstruction is seen in the pelvic calyceal system. IMPRESSION: NO ACUTE ABDOMINAL FINDINGS. Calcific area projecting over the right kidney which may be a stone, artifact or postoperative change . No obstruction seen in the pelvic calyceal system bilaterally. Reviewed, dictated and finalized at location A. IMPRESSION: NO ACUTE ABDOMINAL FINDINGS. Calcific area projecting over the right kidney which may be a stone, artifact o r postoperative change. No obstruction seen in the pelvic calyceal system bilaterally.
[2024-04-25 16:20] LABS: Basophils Absolute Auto 0.1 K/mm3 (0.0-0.1); Basophils Percent Auto 0.5 % (0.2-1.2); Eosinophils Absolute Auto 0.3 K/mm3 (0-0.3); Eosinophils Percent Auto 2.7 % (0-4.4); Hematocrit 39.2 % (37.0-47.0); Hemoglobin 14.2 g/dL (12.0-15.0); Immature Granulocyte Absolute 0.04 K/mm3 (0.00-0.031); Immature Granulocyte Percent A 0.3 % (0-0.5); Lymphocytes Absolute Auto 2.76 K/mm3 (0.9-3.2); Lymphocytes Percent Auto 23.4 % (18.3-44.2); Mean Corpuscular HGB Conc 36.2 g/dl (32-36); Mean Corpuscular Hemoglobin 31.3 pg (26-34); Mean Corpuscular Volume 86.3 fl (80-100); Mean Platelet Volume 9.4 fl (7.4-10.4); Monocytes Absolute Auto 0.9 K/mm3 (0.1-0.6); Monocytes Percent Auto 7.6 % (2.6-8.5); Neutrophils Absolute Auto 7.7 K/mm3 (1.3-6.7); Neutrophils Percent Auto 65.5 % (45.5-73.1); Platelet Count Result 250 k/mm3 (150-375); Red Blood Count 4.54 M/mm3 (4.2-5.4); Red Cell Distribution Width 12.2 % (11.5-14.5); White Blood Count 11.8 K/mm3 (4.5-10.0)
[2024-04-25 16:38] LABS: Add Urine Microscopic? YES; Appearance Urine Cloudy (Clear); Bacteria Urine Rare /hpf; Bilirubin Urine Negative (Negative); Blood Urine 1+ (Negative); Color Urine Yellow (Yellow); Glucose Urine UA Negative (Negative); Ketones Urine Trace mg/dL (Negative); Leukocyte Esterase Ur Negative LEU/UL (Negative); Nitrate Urine Negative (Negative); Non Pathogenic Casts 0-2; Protein Urine Trace mg/dL (Negative); Specific Grav Ur 1.027 (1.001-1.035); Squamous Epithelial Cell Urine Moderate /hpf (Few); WBC Urine 0-5 /hpf (0-3); pH Urine 5.5 (5.0-9.0)
[2024-04-25 16:44] LABS: Alanine Aminotransferase 49 U/L (6-35); Albumin Level 4.4 g/dL (3.5-5.1); Alkaline Phosphatase 87 U/L (38-126); Anion Gap 12 mmol/L (4-12); Aspartate Amino Transferase 40 U/L (14-36); Bilirubin,Total 0.7 mg/dL (0.2-1.3); Blood Urea Nitrogen 15 mg/dL (7-17); Calcium 9.2 mg/dL (8.4-10.2); Carbon Dioxide 20 mmol/L (22-30); Chloride 104 mmol/L (98-107); Estimated CRCL calculation 103 ml/min; Estimated Glomerular Filt Rate > 60; Glucose 88 mg/dL (65-110); Potassium 3.5 mmol/L (3.4-5.0); Sodium 136 mmol/L (137-145)
[2024-04-25] MEDS: SODIUM CHLORIDE 0.9% IV 1,000 ML 999 ML IV CONT ×2 (17:57→23:17)
[2024-04-25] MEDS: MORPHINE SULFATE (*CRX) 4 MG/ML INJ IV PUSH (17:57)
[2024-04-25] MEDS: ONDANSETRON INJ 4 MG/2 ML VIAL IV PUSH (17:57)
--- NOTE | 2024-04-25 18:17 | ED.BACK ---
HPI - Back Pain/Injury General Chief Complaint: Back Pain/Injury Stated Complaint: kidney stone Time Seen by Provider: 04/25/24 15:57 Source: patient Mode of arrival: ambulatory Limitations: no limitations History of Present Illness HPI Narrative: Patient is a 44-year-old female who presents to the ER with complaints right-sided flank pain. She endorses a history of multiple kidney stones in the past, high blood pressure, and diabetes. Her last kidney stone was diagnosed in August 2023. Patient reports her pain came on abruptly around 12:30 p.m. today. She has concerns that she is dehydrated. Pt denies any visible blood in her urine. Patient denies shortness of breath and chest pain. She does endorse a mild headache. MD elicited complaint: back pain Pertinent past history: kidney stones Onset (ago): hour(s) Timing: constant Severity: severe Pain scale (0-10): 10 Related Data Home Medications Medication Instructions Recorded Confirmed multivitamin 1 tablet PO DAILY 04/04/22 02/21/24 acetaminophen 650 mg 650 mg PO Q8H PRN Pain 12/31/22 02/21/24 tablet,extended release ibuprofen 800 mg tablet 200 mg PO TID PRN pain 12/31/22 02/21/24 tamsulosin 0.4 mg capsule (Flomax) 0.4 mg PO DAILY 09/21/23 02/21/24 amlodipine 10 mg tablet 10 mg PO DAILY 02/21/24 02/21/24 pregabalin 150 mg capsule 150 mg PO ONCE 02/21/24 02/21/24 Allergies Allergy/AdvReac Type Severity Reaction Status Date / Time ketorolac [From Toradol] Allergy Headache,Rash, Verified 04/25/24 16:04 Swollen tongue tramadol AdvReac Mild VOMITING/HE Verified 04/25/24 16:04 ADACHE hydralazine AdvReac Headache Verified 04/25/24 16:04 Review of Systems Review of Systems: All systems reviewed & are unremarkable except as noted in HPI and below PMFSH Past Medical History Medical History Depression Gastroesophageal reflux disease Hypertension Multiple kidney stones Obesity Seasonal allergies Sleep paralysis, recurrent isolated Smoker Surgical History Surgical History History of section 2000, 2001, 2009 History of endometrial ablation (2009) History of hysterectomy (2016) History of laparoscopic cholecystectomy on 04/25/23 PDC History of open reduction and internal fixation (ORIF) procedure (2013) Left elbow. History of tubal ligation Status post cystoscopy with ureteral stent placement Family History Family History Mother Diabetes mellitus Depression Alcoholism Father Hypertension Sibling Congenital heart disease Son Asthma Grandparent Diabetes mellitus Cerebrovascular accident Social History Social History Social History: Surrogate medical decision maker: Bang Luke, spouse. Code status: Full code. Smoking packs per day: 0.5 Smoking cigarettes per day: 10.0 Years smoked: 32 Smoking pack-years: 16.00 Smoking status: Current every day smoker Tobacco type: cigarettes Alcohol intake: never Alcohol use details: Social alcohol use in moderation. Substance use: never Substance use type: does not use Do You Feel Safe in your Home?: Yes Lack of Transportation: No Lack of Food: Never True Current Housing: I Have Housing Concerned About Future Housing: No Difficulty Paying Gas/Electric Bills: No Difficulty Paying for Meds: No Currently Unemployed: No Education: High School Diploma/GED Difficulty w/ Childcare or Family Care: No Living arrangements: with family Spiritual care concerns: No Exam Narrative: GENERAL: Well appearing, well-nourished, non-toxic, in no acute distress. RESPIRATORY: Airway patent, respirations nonlabored. Clear to auscultation bilaterally, no rales, rhonchi, wheezing. CARDIOVASCULAR: Regular rate and rhythm without murmurs, rubs, or gallops. Periphe
[2024-04-25 19:06] LABS: INR 1.1; Partial Thromboplastin Time 27.4 Seconds (22.3-36.8); Prothrombin Time 14.8 Seconds (11.1-14.7)
[2024-04-25 19:13] LABS: Lactic Acid Reflex 1.4 mmol/L (0.7-2.0)
[2024-04-25] MEDS: cefTRIAXone 1 GM VIAL 0.5 GM IM (19:15)
[2024-04-25] MEDS: LIDOCAINE HCL 1% LOCAL INJ 2 ML AMPUL 2.1 ML XX (19:17)
[2024-04-25] MEDS: HYDROmorphone HCL INJ (*CRX) 1 MG/ML SYR IV PUSH ×2 (19:38→23:17)
[2024-04-26 01:01] VITALS: BP 167/102; PULSE 81; RESP 16; TEMP 36.8; O2SAT 98
== END 2024-04-26 01:02 | disposition home or self-care (01) ==
PROVIDERS: Emergency Medicine; Emergency Provider Registered Nurse; PCP Internal Medicine
DX: R10.9 Unspecified abdominal pain (principal); I10 Essential (primary) hypertension; E11.9 Type 2 diabetes mellitus without complications; E66.9 Obesity, unspecified; Z68.32 Body mass index [BMI] 32.0-32.9, adult; K21.9 Gastro-esophageal reflux disease without esophagitis; G47.53 Recurrent isolated sleep paralysis; F17.210 Nicotine dependence, cigarettes, uncomplicated; Z87.442 Personal history of urinary calculi; Z90.710 Acquired absence of both cervix and uterus; Z90.49 Acquired absence of other specified parts of digestive tract; N83.202 Unspecified ovarian cyst, left side; K76.0 Fatty (change of) liver, not elsewhere classified; Z79.899 Other long term (current) 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
CPT/HCPCS: 36415; 74018; 74177; 80053; 81001; 83605; 85025; 85610; 85730; 87040; 96361; 96372; 96374; 96375; 96376; 99284; J0696; J1170; J2270; J2405; J7030; Q9967

== ENCOUNTER 2024-05-13 09:14 | Emergency (ER) | payer OTHER, SELFPAY ==
[2024-05-13 09:25] VITALS: BP 181/122; PULSE 106; RESP 16; TEMP 36.4; O2SAT 98
--- NOTE | 2024-05-13 11:40 | PC.NURSE ---
Patient not found in lobby when called for.
--- NOTE | 2024-05-13 11:50 | PC.NURSE ---
called out @ [id number]. no answer.
== END 2024-05-13 13:17 | disposition left against medical advice (07) ==
LOC: ANHED 12:40
PROVIDERS: PCP Internal Medicine
DX: R10.9 Unspecified abdominal pain (principal)
CPT/HCPCS: 99199

== ENCOUNTER 2024-05-21 05:18 | Emergency (ER) | payer OTHER, SELFPAY ==
--- NOTE | ~2024-05-21 | CT_ITS ---
Non-contrast CT scan of the Abdomen and Pelvis Clinical indication: UTI, kidney stone Technique: 2.5 mm axial scans were obtained through the abdomen and pelvis without intravenous or or al contrast. Dose reduction technique was used on this scan by utilizing automated exposure control a nd iterative reconstruction technique. The dose-length product (DLP) was 265.24 mGy-cm. COMPARISON: 04/25/2024 Findings: Images through the lung bases reveal no abnormalities. There is no evidence of renal or ureteral calculi. The kidneys and the ureters are nondilated. Diffuse hepatic steatosis noted. Cholecystectomy clips are present. The spleen, pancreas, and adrenal s appear normal. There is no aortic aneurysm. There is no evidence of bowel obstruction. Images through the pelvis were performed. There is no evidence of ascites or lymphadenopathy. Urinary bladder unremarkable. No pelvic mass seen. Impression: No renal, ureteral, or bladder stone seen. No hydronephrosis. Diffuse hepatic steatosis. Reviewed, dictated and finalized at [facility]. Impression: No renal, ureteral, or bladder stone seen. No hydronephrosis. Diffuse hepatic steatosis.
[2024-05-21 05:19] VITALS: BP 198/82; PULSE 100; RESP 14; TEMP 36.1; O2SAT 98
[2024-05-21 05:49] VITALS: BP 176/127; PULSE 97; RESP 16; TEMP 36.5; O2SAT 97
[2024-05-21 05:50] LABS: BEDSIDEPREGUCG Negative (Negative)
[2024-05-21 05:51] LABS: Basophils Absolute Auto 0.1 K/mm3 (0.0-0.1); Basophils Percent Auto 0.5 % (0.2-1.2); Eosinophils Absolute Auto 0.2 K/mm3 (0-0.3); Eosinophils Percent Auto 2.2 % (0-4.4); Hematocrit 43.1 % (37.0-47.0); Hemoglobin 15.6 g/dL (12.0-15.0); Immature Granulocyte Absolute 0.03 K/mm3 (0.00-0.031); Immature Granulocyte Percent A 0.3 % (0-0.5); Lymphocytes Absolute Auto 3.22 K/mm3 (0.9-3.2); Lymphocytes Percent Auto 29.6 % (18.3-44.2); Mean Corpuscular HGB Conc 36.2 g/dl (32-36); Mean Corpuscular Hemoglobin 31.5 pg (26-34); Mean Corpuscular Volume 86.9 fl (80-100); Mean Platelet Volume 9.4 fl (7.4-10.4); Monocytes Absolute Auto 0.8 K/mm3 (0.1-0.6); Monocytes Percent Auto 7.3 % (2.6-8.5); Neutrophils Absolute Auto 6.5 K/mm3 (1.3-6.7); Neutrophils Percent Auto 60.1 % (45.5-73.1); Platelet Count Result 255 k/mm3 (150-375); Red Blood Count 4.96 M/mm3 (4.2-5.4); Red Cell Distribution Width 12.3 % (11.5-14.5); White Blood Count 10.9 K/mm3 (4.5-10.0)
[2024-05-21 06:06] LABS: Alanine Aminotransferase 59 U/L (6-35); Albumin Level 4.7 g/dL (3.5-5.1); Alkaline Phosphatase 80 U/L (38-126); Anion Gap 7 mmol/L (4-12); Aspartate Amino Transferase 42 U/L (14-36); Bilirubin,Total 0.4 mg/dL (0.2-1.3); Blood Urea Nitrogen 12 mg/dL (7-17); Calcium 10.1 mg/dL (8.4-10.2); Carbon Dioxide 26 mmol/L (22-30); Chloride 102 mmol/L (98-107); Estimated CRCL calculation 103 ml/min; Estimated Glomerular Filt Rate > 60; Glucose 109 mg/dL (65-110); Potassium 3.7 mmol/L (3.4-5.0); Sodium 135 mmol/L (137-145)
[2024-05-21 06:28] LABS: Add Urine Microscopic? YES; Appearance Urine Cloudy (Clear); Bacteria Urine 2+ /hpf; Bilirubin Urine Negative (Negative); Blood Urine 1+ (Negative); Color Urine Yellow (Yellow); Glucose Urine UA Negative (Negative); Ketones Urine Negative (Negative); Leukocyte Esterase Ur Negative LEU/UL (Negative); Mucus Urine Present /lpf; Need Manual Microscopic Reviewed; Nitrate Urine Negative (Negative); Non Pathogenic Casts 0-2; Protein Urine Negative (Negative); Specific Grav Ur 1.013 (1.001-1.035); Squamous Epithelial Cell Urine Many /hpf (Few); Urobilinogen Urine 0.2 mg/dL (<2.0); pH Urine 5.5 (5.0-9.0)
--- NOTE | 2024-05-21 07:30 | ED.FEMALEGU ---
HPI - Female Genitourinary General Chief complaint: Urogenital-Female Stated complaint: kidney stone Time Seen by Provider: 05/21/24 07:03 History of Present Illness HPI Narrative: Patient with history of kidney stones presents here with several days of increasing pain to her right side that feels like her kidney stone pain, developing some nausea. history of stones and stents Related Data Home Medications Medication Instructions Recorded Confirmed multivitamin 1 tablet PO DAILY 04/04/22 02/21/24 acetaminophen 650 mg 650 mg PO Q8H PRN Pain 12/31/22 02/21/24 tablet,extended release ibuprofen 800 mg tablet 200 mg PO TID PRN pain 12/31/22 02/21/24 tamsulosin 0.4 mg capsule (Flomax) 0.4 mg PO DAILY 09/21/23 02/21/24 amlodipine 10 mg tablet 10 mg PO DAILY 02/21/24 02/21/24 pregabalin 150 mg capsule 150 mg PO ONCE 02/21/24 02/21/24 Allergies Allergy/AdvReac Type Severity Reaction Status Date / Time ketorolac [From Toradol] Allergy Headache,Rash, Verified 05/21/24 05:18 Swollen tongue tramadol AdvReac Mild VOMITING/HE Verified 05/21/24 05:18 ADACHE hydralazine AdvReac Headache Verified 05/21/24 05:18 Review of Systems Review of Systems: All systems reviewed & are unremarkable except as noted in HPI and below PMFSH Past Medical History Medical History Depression Gastroesophageal reflux disease Hypertension Multiple kidney stones Obesity Seasonal allergies Sleep paralysis, recurrent isolated Smoker Surgical History Surgical History History of section 2000, 2002, 2009 History of endometrial ablation (2009) History of hysterectomy (2015) History of laparoscopic cholecystectomy on 04/25/23 PDC History of open reduction and internal fixation (ORIF) procedure (2012) Left elbow. History of tubal ligation Status post cystoscopy with ureteral stent placement Family History Family History Mother Diabetes mellitus Depression Alcoholism Father Hypertension Sibling Congenital heart disease Son Asthma Grandparent Diabetes mellitus Cerebrovascular accident Social History Social History Social History: Surrogate medical decision maker: Bang Luke, spouse. Code status: Full code. Smoking packs per day: 0.5 Smoking cigarettes per day: 10.0 Years smoked: 32 Smoking pack-years: 16.00 Smoking status: Current every day smoker Tobacco type: cigarettes Alcohol intake: never Alcohol use details: Social alcohol use in moderation. Substance use: never Substance use type: does not use Do You Feel Safe in your Home?: Yes Lack of Transportation: No Lack of Food: Never True Current Housing: I Have Housing Concerned About Future Housing: No Difficulty Paying Gas/Electric Bills: No Difficulty Paying for Meds: No Currently Unemployed: No Education: High School Diploma/GED Difficulty w/ Childcare or Family Care: No Living arrangements: with family Spiritual care concerns: No Exam Narrative: EXAMINATION OF ORGAN SYSTEMS/BODY AREAS: Constitutional: Vital signs per nursing GENERAL: appears slightly uncomfortable in the bed HEAD: Normal with no signs of head trauma. EYES: EOMI, conjunctiva normal ENT: Hearing grossly intact LUNGS: Nonlabored breathing. HEART: [Regular rate and rhythm] ABD: [Soft], [nontender to palpation] EXT: Normal range of motion SKIN: [No rashes or lesions.] NEURO: [Alert and oriented x 3. No gross focal sensory or strength deficits.] PSYCH: Normal affect Course Vital Signs Vital signs: Vital Signs Temperature 97.0 F L 05/21/24 05:19 Pulse Rate 100 05/21/24 05:19 Respiratory Rate 14 05/21/24 05:19 Blood Pressure 198/82 H 05/21/24 05:19 Pulse Oximetry 98 05/21/24 05:19 Oxygen Delivery Room Air 05/21/24 05:19
[2024-05-21] MEDS: MORPHINE SULFATE (*CRX) 4 MG/ML INJ IV PUSH (07:38)
[2024-05-21] MEDS: cefTRIAXone 2 GM/NS 100 ML 2 GM/100 ML BAG IVPB (07:38)
[2024-05-21] MEDS: ONDANSETRON INJ 4 MG/2 ML VIAL IV PUSH (07:38)
[2024-05-21 08:25] VITALS: BP 158/108; PULSE 86; RESP 20; TEMP 37; O2SAT 100
== END 2024-05-21 08:27 | disposition home or self-care (01) ==
LOC: ANHED 08:02
PROVIDERS: Emergency Medicine; Emergency Provider Emergency Medicine; PCP Internal Medicine
DX: N12 Tubulo-interstitial nephritis, not specified as acute or chronic (principal); I10 Essential (primary) hypertension; E66.9 Obesity, unspecified; Z68.32 Body mass index [BMI] 32.0-32.9, adult; G47.53 Recurrent isolated sleep paralysis; K21.9 Gastro-esophageal reflux disease without esophagitis; F17.210 Nicotine dependence, cigarettes, uncomplicated; Z87.442 Personal history of urinary calculi; Z90.710 Acquired absence of both cervix and uterus; Z90.49 Acquired absence of other specified parts of digestive tract; Z79.899 Other long term (current) 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; K76.0 Fatty (change of) liver, not elsewhere classified
CPT/HCPCS: 36415; 74176; 80053; 81001; 81025; 85025; 87086; 96365; 96375; 99284; J0696; J2270; J2405

== ENCOUNTER 2024-06-23 17:36 | Emergency (ER) | payer OTHER, SELFPAY ==
--- NOTE | ~2024-06-23 | CT_ITS ---
CLINICAL INDICATION: Right flank pain and hematuria COMPARISON: . TECHNIQUE: Multiple contiguous axial images of the abdomen and pelvis were performed without the admi nistration of intravenous contrast The dose-length product (DLP) was 497.15 mGy-cm. Automated exposure control and iterative reconstruction technique were employed. FINDINGS/OBSERVATIONS: Visualized lower thorax: The bilateral lung bases are clear. The heart is of normal size, without pericardial effusion. Small hiatal hernia is present. Liver: The liver is enlarged measuring 21 cm in longitudinal dimension. The liver demonstrates homogeneous a ttenuation. Gallbladder and biliary system: The gallbladder is surgically absent. Pancreas: Limited evaluation of the pancreas secondary to the lack of intravenous contrast. Spleen: The spleen demonstrates homogeneous attenuation and is not enlarged measuring 10 cm in longitudinal d imension. Kidneys: 3 mm calculus within the upper pole of the right kidney. 2 mm calculus within the lower pole of the left kidney. 2 mm calculus within the interpolar region of the left kidney. Mild bilateral hydroureteronephrosis without a calcified obstructing stone detected. Adrenal glands: Unremarkable. Gastrointestinal tract: Colonic diverticulosis without surrounding inflammatory change. Fecal stasis within the colon. Appendix: The appendix is not definitively visualized. However, no pericecal inflammatory change is identified suggest the presence of acute appendicitis. Vasculature: Unremarkable. Lymph nodes: No pathologically enlarged or morphologically suspicious lymph nodes within the retroperitoneum or at the root of the mesentery. Pelvic structures: The bladder is distended, and otherwise unremarkable. Multiple phleboliths are identified within the pelvis, unchanged in positioning and morphology since previous examination dated 05/21/2024. The uterus is either surgically absent or markedly atrophic. Body wall and musculoskeletal: Small fat-containing umbilical hernia. No significant degenerative disease within the lower thoracic or lumbosacral spine. IMPRESSION: No obstructive uropathy. Small bilateral renal calculi, an interval change from 05/21/2024 examination. Hepatomegaly Reviewed, dictated and finalized at location [facility]. [facility]
[2024-06-23 17:38] VITALS: BP 200/125; PULSE 113; RESP 16; TEMP 36.4; O2SAT 98
--- NOTE | 2024-06-23 17:41 | ED_ITS ---
HPI - Abdominal Pain General Chief Complaint: Urogenital-Female <Glo Marrufo PA-C - Last Filed: 06/24/24 09:53> Stated Complaint: hematuria, R flank pain <Glo Marrufo PA-C - Last Filed: 06/24/24 09:53> Time Seen by Provider: 06/23/24 17:41 <Glo Marrufo PA-C - Last Filed: 06/24/24 09:53> Focused HPI: This is a 44 year old female that presents to the ER for flank pain. Ongoing over the last week. Reports history of kidney stones and her pain feels similar. Reports hematuria and nausea. GENERAL: Well-appearing, well-nourished, and in no acute distress. HEAD: Normocephalic, atraumatic. CHEST: Clear to auscultation. ?No respiratory distress. HEART: Regular rate and rhythm.? NEURO: ?Alert and oriented x3. Patient screened in triage and initial orders placed.? ?Additional care and disposition to be based upon?diagnostic testing and treatment. <Glo Marrufo PA-C - Last Filed: 06/24/24 09:53> History of Present Illness HPI narrative: 44-year-old female with history of recurrent kidney stones in subtle previous stent placements presents to emergency department for right flank pain for the past few days, worsening yesterday. Please reports she nausea or vomiting. States she is concerned she has a kidney stone. Also reporting some left-sided pain. Her urologist is Dr. Gonzalez. She has not have any current stents placed. She denies dysuria, hematuria, frequency urgency, fever. States she ran out of her Flomax she takes regularly as well as her pain medications and Zofran.. <Winnie Bowers PA-C - Last Filed: 06/24/24 01:15> Related Data Home Medications: Home Medications Medication Instructions Recorded Confirmed multivitamin 1 tablet PO DAILY 04/04/22 02/21/24 acetaminophen 650 mg 650 mg PO Q8H PRN Pain 12/31/22 02/21/24 tablet,extended release ibuprofen 800 mg tablet 200 mg PO TID PRN pain 12/31/22 02/21/24 tamsulosin 0.4 mg capsule (Flomax) 0.4 mg PO DAILY 09/21/23 02/21/24 amlodipine 10 mg tablet 10 mg PO DAILY 02/21/24 02/21/24 pregabalin 150 mg capsule 150 mg PO ONCE 02/21/24 02/21/24 <Glo Marrufo PA-C - Last Filed: 06/24/24 09:53> Allergies/Adverse Reactions: Allergies Allergy/AdvReac Type Severity Reaction Status Date / Time ketorolac [From Toradol] Allergy Headache,Rash, Verified 05/21/24 05:18 Swollen tongue tramadol AdvReac Mild VOMITING/HE Verified 05/21/24 05:18 ADACHE hydralazine AdvReac Headache Verified 05/21/24 05:18 <Glo Marrufo PA-C - Last Filed: 06/24/24 09:53> Review of Systems Review of Systems: All systems reviewed & are unremarkable except as noted in HPI and below <Winnie Bowers PA-C - Last Filed: 06/24/24 01:15> [facility] Past Medical History Medical History: Medical History Depression Gastroesophageal reflux disease Hypertension Multiple kidney stones Obesity Seasonal allergies Sleep paralysis, recurrent isolated Smoker <Glo Marrufo PA-C - Last Filed: 06/24/24 09:53> Surgical History Surgical History: Surgical History History of section 2000, 2001, 2009 History of endometrial ablation (2009) History of hysterectomy (2015) History of laparoscopic cholecystectomy on 04/25/23 PDC History of open reduction and internal fixation (ORIF) procedure (2012) Left elbow. History of tubal ligation Status post cystoscopy with ureteral stent placement <Glo Marrufo PA-C - Last Filed: 06/24/24 09:53> Family History Family History: Family History Mother Diabetes mellitus Depression Alcoholism Father Hypertension Sibling Congenital heart disease Son Asthma Grandparent Diabetes mellitus Cerebrovascular accident <Glo Marrufo PA-C - Last Filed: 06/24/24 09:53> Social History Social History: Social History Social History: Surrogate medical decision maker: Bang Luke, spouse. Code status: Full code. Smoking packs per day: 0.5 Smoking cigarettes per day: 10.0 Years smoked: 32 Smoking pack-years: 16.00 Smoking status: Current every day smoker Tobacco type: cigarettes Alcohol intake: never Alcohol use details: Social alcohol use in moderation. Substance use: never Substance use type: does not use Do You Feel Safe in your Home?: Yes Lack of Transportation: No Lack of Food: Never True Current Housing: I Have Housing Concerned About Future Housing: No Difficulty Paying Gas/Electric Bills: No Difficulty Paying for Meds: No Currently Unemployed: No Education: High School Diploma/GED Difficulty w/ Childcare or Family Care: No Living arrangements: with family Spiritual care concerns: No <Glo Marrufo PA-C - Last Filed: 06/24/24 09:53> Exam Narrative: GENERAL: Well-appearing, well-nourished, and in no acute distress. HEAD: Normocephalic, atraumatic. EYES: EOMI. ENT: Nares clear, no rhinorrhea or epistaxis. Mucous membranes moist. NECK: Supple. CHEST: Clear to auscultation. No respiratory distress. HEART: Regular rate and rhythm. No murmur heard. Normal peripheral pulses. ABDOMEN: Soft, nontender, nondistended, normal active bowel sounds. No rebound, guarding or rigidity. Right CVA tenderness EXTREMITIES: Normal range of motion. No edema. SKIN: Warm, dry, no rash. NEURO: No focal deficits. Alert and oriented x3 <Winnie Bowers PA-C - Last Filed: 06/24/24 01:15> Course Vital Signs Vital signs: Vital Signs Temperature 97.5 F L 06/23/24 17:38 Pulse Rate 113 H 06/23/24 17:38 Respiratory Rate 16 06/23/24 17:38 Blood Pressure 200/125 H 06/23/24 17:38 Pulse Oximetry 98 06/23/24 17:38 Oxygen Delivery Room Air 06/23/24 17:38 Temperature 97.9 F 06/23/24 21:09 Pulse Rate 96 06/23/24 21:09 Respiratory Rate 14 06/23/24 21:09 Blood Pressure 126/61 06/23/24 21:09 Pulse Oximetry 100 06/23/24 21:09 Oxygen Delivery Room Air 06/23/24 17:38 <Glo Marrufo PA-C - Last Filed: 06/24/24 09:53> Vital Signs Temperature 97.5 F L 06/23/24 17:38 Pulse Rate 113 H 06/23/24 17:38 Respiratory Rate 16 06/23/24 17:38 Blood Pressure 200/125 H 06/23/24 17:38 Pulse Oximetry 98 06/23/24 17:38 Oxygen Delivery Room Air 06/23/24 17:38 Temperature 97.9 F 06/23/24 21:09 Pulse Rate 96 06/23/24 21:09 Respiratory Rate 14 06/23/24 21:09 Blood Pressure 126/61 06/23/24 21:09 Pulse Oximetry 100 06/23/24 21:09 Oxygen Delivery Room Air 06/23/24 17:38 <Winnie Bowers PA-C - Last Filed: 06/24/24 01:15> MDM - Abdominal Pain MDM Narrative Medical decision making narrative: 44-year-old female with history of recurrent kidney stones presents to emergency department for right-sided flank pain and abdominal pain for the past few days, worsening yesterday. Vital signs remarkable for tachycardia 113 and hypertension of 200/125. Patient is afebrile nontoxic appearing. She is prescribed several antihypertensives which she states she has been taking r egularly. She is due for her nighttime doses. She denies chest pain or shortness of breath, vision changes, headache. Plan to provide her with her nighttime doses of blood pressure medications and will obtain UA, labs and CT with contrast to evaluate for ureterolithiasis. CBC shows no leukocytosis. She is hemoconcentrated hemoglobin of 16 point Rue 20 secondary to dehydration. Chemistries also revealed mild hypokalemia of 3, this is been orally repleted. Magnesium is within normal limits. AST and ALT are chronically elevated. UA without infection or hematuria. Lipase is normal. CT without contrast shows no obstructive uropathy, small bilateral renal calculi and hepatomegaly. Patient updated on workup. She received ibuprofen and Zofran. She is tolerating p.o. intake. Her blood pressure has improved after her nighttime medication to 128/57. Tachycardia resolved. Discussed at pain may be secondary to MSK etiology advised her to take Flexeril and ibuprofen at home. Patient is prescribed these. She is requesting refill on her Flomax and Zofran which is been provided. Advised to follow-up with her PCP and urologist. Return precautions discussed. She is agreeable to plan verbalized understanding. Discharged in stable condition. <Winnie Bowers PA-C - Last Filed: 06/24/24 01:15> Lab Data Result diagrams: 06/23/24 18:05 06/23/24 18:05 <Glo Marrufo PA-C - Last Filed: 06/24/24 09:53> Labs: Lab Results 06/23/24 Range/Units 18:05 WBC 9.8 (4.5-10.0) K/mm3 RBC 5.18 (4.2-5.4) M/mm3 Hgb 16.3 H (12.0-15.0) g/dL Hct 45.0 (37.0-47.0) % MCV 86.9 (80-100) fl MCH 31.5 (26-34) pg MCHC 36.2 H (32-36) g/dl RDW 12.3 (11.5-14.5) % Plt Count 246 (150-375) k/mm3 MPV 9.7 (7.4-10.4) fl Immature Gran % (Auto) 0.2 (0-0.5) % Neut % (Auto) 73.4 H (45.5-73.1) % Lymph % (Auto) 19.7 (18.3-44.2) % [place] % (Auto) 5.6 (2.6-8.5) % Eos % (Auto) 0.6 (0-4.4) % Baso % (Auto) 0.5 (0.2-1.2) % Lymph # (Auto) 1.92 (0.9-3.2) K/mm3 [place] # (Auto) 0.6 (0.1-0.6) K/mm3 Eos # (Auto) 0.1 (0-0.3) K/mm3 Baso # (Auto) 0.1 (0.0-0.1) K/mm3 Abs Immat Gran (auto) 0.02 (0.00-0.031) K/mm3 Absolute Neuts (auto) 7.2 H (1.3-6.7) K/mm3 Absolute Nucleated RBC 0.000 (0.0-0.012) K/mm3 Nucleated RBC % 0.0 (0.0-0.2) % Sodium 138 (137-145) mmol/L Potassium 3.0 L (3.4-5.0) mmol/L Chloride 105 (98-107) mmol/L Carbon Dioxide 22 (22-30) mmol/L Anion Gap 11 (4-12) mmol/L BUN 12 (7-17) mg/dL Creatinine 0.70 (0.7-1.0) mg/dL Estim Creat Clear Calc 89 ml/min Estimated GFR > 60 (59 - ) Glucose 115 H (65-110) mg/dL Calcium 10.1 (8.4-10.2) mg/dL Magnesium 1.8 (1.6-2.3) mg/dL Total Bilirubin 0.7 (0.2-1.3) mg/dL AST 56 H (14-36) U/L ALT 71 H (6-35) U/L Alkaline Phosphatase 82 (38-126) U/L Total Protein 9.0 H (6.3-8.2) g/dL Albumin 4.9 (3.5-5.1) g/dL Lipase 125 (23-300) U/L Urine Color Yellow (Yellow) Urine Appearance Clear (Clear) Urine pH 6.0 (5.0-9.0) Ur Specific [place] 1.006 (1.001-1.035) Urine Protein Negative (Negative) mg/dL Urine Glucose (UA) Negative (Negative) mg/dL Urine Ketones Negative (Negative) mg/dL Ur Blood (Man) Negative (Negative) Urine Nitrate Negative (Negative) Urine Bilirubin Negative (Negative) Urine Urobilinogen 0.2 (<2.0) mg/dL Leukocyte Esterase Rfl Negative (Negative) ALEKSANDRA/UL <Glo Marrufo PA-C - Last Filed: 06/24/24 09:53> Lab Results 06/23/24 Range/Units 18:05 WBC 9.8 (4.5-10.0) K/mm3 RBC 5.18 (4.2-5.4) M/mm3 Hgb 16.3 H (12.0-15.0) g/dL Hct 45.0 (37.0-47.0) % MCV 86.9 (80-100) fl MCH 31.5 (26-34) pg MCHC 36.2 H (32-36) g/dl RDW 12.3 (11.5-14.5) % Plt Count 246 (150-375) k/mm3 MPV 9.7 (7.4-10.4) fl Immature Gran % (Auto) 0.2 (0-0.5) % Neut % (Auto) 73.4 H (45.5-73.1) % Lymph % (Auto) 19.7 (18.3-44.2) % [place] % (Auto) 5.6 (2.6-8.5) % Eos % (Auto) 0.6 (0-4.4) % Baso % (Auto) 0.5 (0.2-1.2) % Lymph # (Auto) 1.92 (0.9-3.2) K/mm3 [place] # (Auto) 0.6 (0.1-0.6) K/mm3 Eos # (Auto) 0.1 (0-0.3) K/mm3 Baso # (Auto) 0.1 (0.0-0.1) K/mm3 Abs Immat Gran (auto) 0.02 (0.00-0.031) K/mm3 Absolute Neuts (auto) 7.2 H (1.3-6.7) K/mm3 Absolute Nucleated RBC 0.000 (0.0-0.012) K/mm3 Nucleated RBC % 0.0 (0.0-0.2) % Sodium 138 (137-145) mmol/L Potassium 3.0 L (3.4-5.0) mmol/L Chloride 105 (98-107) mmol/L Carbon Dioxide 22 (22-30) mmol/L Anion Gap 11 (4-12) mmol/L BUN 12 (7-17) mg/dL Creatinine 0.70 (0.7-1.0) mg/dL Estim Creat Clear Calc 89 ml/min Estimated GFR > 60 (59 - ) Glucose 115 H (65-110) mg/dL Calcium 10.1 (8.4-10.2) mg/dL Magnesium 1.8 (1.6-2.3) mg/dL Total Bilirubin 0.7 (0.2-1.3) mg/dL AST 56 H (14-36) U/L ALT 71 H (6-35) U/L Alkaline Phosphatase 82 (38-126) U/L Total Protein 9.0 H (6.3-8.2) g/dL Albumin 4.9 (3.5-5.1) g/dL Lipase 125 (23-300) U/L Urine Color Yellow (Yellow) Urine Appearance Clear (Clear) Urine pH 6.0 (5.0-9.0) Ur Specific [place] 1.006 (1.001-1.035) Urine Protein Negative (Negative) mg/dL Urine Glucose (UA) Negative (Negative) mg/dL Urine Ketones Negative (Negative) mg/dL Ur Blood (Man) Negative (Negative) Urine Nitrate Negative (Negative) Urine Bilirubin Negative (Negative) Urine Urobilinogen 0.2 (<2.0) mg/dL Leukocyte Esterase Rfl Negative (Negative) ALEKSANDRA/UL <Winnie Bowres PA-C - Last Filed: 06/24/24 01:15> Imaging Data Radiologist's impression: ITS Impressions Abdomen/Pelvis CT 06/23/24 18:02 IMPRESSION: No obstructive uropathy. Small bilateral renal calculi, an interval change from 05/21/2024 examination. Hepatomegaly <ASHA Jiménez Last Filed: 06/24/24 09:53> ITS Impressions Abdomen/Pelvis CT 06/23/24 18:02 IMPRESSION: No obstructive uropathy. Small bilateral renal calculi, an interval change from 05/21/2024 examination. Hepatomegaly <ASHA Man Last Filed: 06/24/24 01:15> Critical Care Time Critical Care Time Critical Care Time: No <ASHA Jiménez Last Filed: 06/24/24 09:53> Discharge Plan Discharge Clinical Impression: Acute right flank pain, Acute hypokalemia <ASHA Jiménez Last Filed: 06/24/24 09:53> Patient Disposition: Home, Self-Care <ASHA Jiménez Last Filed: 06/24/24 09:53> Condition: Stable <Glo Marrufo PA-C - Last Filed: 06/24/24 09:53> Instructions: Antibiotic Form, Flank Pain (ED) <Glo Marrufo PA-C - Last Filed: 06/24/24 09:53> Additional Instructions: Your evaluated in the emergency department for right flank pain. Her lab work showed dehydration and low potassium which has been repleted. Please make sure to drink plenty of fluids including water, Gatorade and Pedialyte. The CT scan shows small kidney stones in both kidneys but now obstructive uropathy as discussed. There is no evidence of UTI. Please take medications as directed follow-up with your PCP and urologist. Return to the emergency department if you develop worsening pain, fever, you are unable to tolerate food or fluids, or other concerning symptoms. <Glo Marrufo PA-C - Last Filed: 06/24/24 09:53> Prescriptions: New tamsulosin [Flomax] 0.4 mg capsule 0.4 mg PO HS Qty: 14 0RF ondansetron 4 mg tablet,disintegrating 4 mg PO Q8H Qty: 14 0RF No Action multivitamin Tablet 1 tablet PO DAILY acetaminophen 650 mg tablet extended release 650 mg PO Q8H PRN (Reason: Pain) Rx Instructions: take with 800mg ibuprofen pregabalin 150 mg capsule 150 mg PO ONCE varenicline [Chantix Starting Month Box] 0.5 mg (11)- 1 mg (42) tablets,dose pack See Rx Instructions PO PER PKG DIR Qty: 53 0RF Rx Instructions: PO PER PKG DIR amlodipine 10 mg tablet 10 mg PO DAILY nebivolol [Bystolic] 10 mg tablet 10 mg PO BID 30 Days Qty: 60 1RF ondansetron 4 mg tablet,disintegrating 4 mg PO Q8H PRN (Reason: nausea and vomiting) Qty: 30 0RF ondansetron 4 mg tablet,disintegrating 4 mg PO Q8H PRN (Reason: nausea and vomiting) Qty: 10 0RF cefdinir 300 mg capsule 300 mg PO Q12H Qty: 14 0RF dicyclomine 20 mg tablet 20 mg PO TID PRN (Reason: abdominal pain) Qty: 30 0RF cefdinir 300 mg capsule 300 mg PO Q12H Qty: 14 0RF ondansetron 4 mg tablet,disintegrating 4 mg PO Q8H PRN (Reason: nausea and vomiting) Qty: 10 0RF ibuprofen 800 mg tablet 200 mg PO TID PRN (Reason: pain) tamsulosin [Flomax] 0.4 mg Capsule 0.4 mg PO DAILY potassium chloride 20 mEq tablet extended release 20 meq PO DAILY Qty: 30 0RF phenazopyridine [Pyridium] 100 mg tablet 100 mg PO TID PRN (Reason: pain) Qty: 6 0RF cyclobenzaprine 10 mg tablet 10 mg PO TID PRN (Reason: muscle spasm) Qty: 14 0RF ondansetron 4 mg tablet,disintegrating 4 mg PO Q8H PRN (Reason: nausea and vomiting) Qty: 10 0RF hydrocodone-acetaminophen 5-325 mg tablet 1 tablet PO Q6H PRN (Reason: pain) Qty: 7 0RF hydrochlorothiazide 25 mg tablet 25 mg PO QAM Qty: 90 1RF losartan 50 mg tablet 50 mg PO BID Qty: 180 0RF <Glo Marrufo PA-C - Last Filed: 06/24/24 09:53> Follow-up/Referrals: Lucas Carter DO [Primary Care Provider] - <Glo Marrufo PA-C - Last Filed: 06/24/24 09:53>
[2024-06-23 18:15] LABS: Basophils Absolute Auto 0.1 K/mm3 (0.0-0.1); Basophils Percent Auto 0.5 % (0.2-1.2); Eosinophils Absolute Auto 0.1 K/mm3 (0-0.3); Eosinophils Percent Auto 0.6 % (0-4.4); Hemoglobin 16.3 g/dL (12.0-15.0); Immature Granulocyte Absolute 0.02 K/mm3 (0.00-0.031); Immature Granulocyte Percent A 0.2 % (0-0.5); Lymphocytes Absolute Auto 1.92 K/mm3 (0.9-3.2); Lymphocytes Percent Auto 19.7 % (18.3-44.2); Mean Corpuscular HGB Conc 36.2 g/dl (32-36); Mean Corpuscular Hemoglobin 31.5 pg (26-34); Mean Corpuscular Volume 86.9 fl (80-100); Mean Platelet Volume 9.7 fl (7.4-10.4); Monocytes Absolute Auto 0.6 K/mm3 (0.1-0.6); Monocytes Percent Auto 5.6 % (2.6-8.5); Neutrophils Absolute Auto 7.2 K/mm3 (1.3-6.7); Neutrophils Percent Auto 73.4 % (45.5-73.1); Platelet Count Result 246 k/mm3 (150-375); Red Blood Count 5.18 M/mm3 (4.2-5.4); Red Cell Distribution Width 12.3 % (11.5-14.5); White Blood Count 9.8 K/mm3 (4.5-10.0)
[2024-06-23 18:21] LABS: Add Urine Microscopic? NO; Appearance Urine Clear (Clear); Bilirubin Urine Negative (Negative); Blood Urine Negative (Negative); Color Urine Yellow (Yellow); Glucose Urine UA Negative (Negative); Ketones Urine Negative (Negative); Leukocyte Esterase Ur Negative LEU/UL (Negative); Nitrate Urine Negative (Negative); Protein Urine Negative (Negative); Specific Grav Ur 1.006 (1.001-1.035); Urobilinogen Urine 0.2 mg/dL (<2.0)
[2024-06-23 18:28] LABS: Alanine Aminotransferase 71 U/L (6-35); Albumin Level 4.9 g/dL (3.5-5.1); Alkaline Phosphatase 82 U/L (38-126); Anion Gap 11 mmol/L (4-12); Aspartate Amino Transferase 56 U/L (14-36); Bilirubin,Total 0.7 mg/dL (0.2-1.3); Blood Urea Nitrogen 12 mg/dL (7-17); Calcium 10.1 mg/dL (8.4-10.2); Carbon Dioxide 22 mmol/L (22-30); Chloride 105 mmol/L (98-107); Estimated CRCL calculation 89 ml/min; Estimated Glomerular Filt Rate > 60; Glucose 115 mg/dL (65-110); Lipase 125 U/L (23-300); Sodium 138 mmol/L (137-145)
[2024-06-23 19:05] LABS: Magnesium 1.8 mg/dL (1.6-2.3)
[2024-06-23 19:10] VITALS: BP 175/135; PULSE 100; RESP 16; TEMP 36.6; O2SAT 98
[2024-06-23 19:22] VITALS: PULSE 100
[2024-06-23] MEDS: NEBIVOLOL HCL 5 MG TABLET 10 MG PO (19:22)
[2024-06-23] MEDS: IBUPROFEN 400 MG TABLET 800 MG PO (19:22)
[2024-06-23] MEDS: amLODIPine BESYLATE 10 MG TABLET PO (19:23)
[2024-06-23] MEDS: POTASSIUM CHLORIDE 20 MEQ PACKET (FOR LIQUID) 40 MEQ PO (19:23)
[2024-06-23] MEDS: ONDANSETRON HCL ODT 4 MG TABLET PO (19:23)
[2024-06-23] MEDS: LOSARTAN POTASSIUM 50 MG TABLET PO (19:23)
[2024-06-23 20:14] VITALS: BP 128/57; PULSE 103; RESP 20; O2SAT 98
[2024-06-23 21:09] VITALS: BP 126/61; PULSE 96; RESP 14; TEMP 36.6; O2SAT 100
== END 2024-06-23 21:09 | disposition home or self-care (01) ==
PROVIDERS: Physician Assistant; Emergency Provider Physician Assistant; PCP Internal Medicine
DX: E87.6 Hypokalemia (principal); R10.9 Unspecified abdominal pain; F17.210 Nicotine dependence, cigarettes, uncomplicated; F32.A Depression, unspecified; K21.9 Gastro-esophageal reflux disease without esophagitis; I10 Essential (primary) hypertension; Z87.442 Personal history of urinary calculi
CPT/HCPCS: 36415; 74176; 80053; 81003; 83690; 83735; 85025; 99284; A9270

== ENCOUNTER 2024-08-09 22:30 | Emergency (ER) | payer OTHER, SELFPAY ==
--- NOTE | ~2024-08-09 | CT_ITS ---
Non-contrast CT scan of the Abdomen and Pelvis Clinical indication: Left flank pain Technique: 2.5 mm axial scans were obtained through the abdomen and pelvis without intravenous or or al contrast. Dose reduction technique was used on this scan by utilizing automated exposure control a nd iterative reconstruction technique. The dose-length product (DLP) was 543.79 mGy-cm. COMPARISON: 06/23/2024 Findings: Images through the lung bases reveal no abnormalities. Small bilateral nonobstructing renal stones are present, largest measuring 3 mm the right kidney. No ureteral stone or hydronephrosis on either side. There is diffuse hepatic steatosis. Cholecystectomy clips are present. The spleen, pancreas, and adre nals appear normal. There is no aortic aneurysm. There is no evidence of bowel obstruction. Images through the pelvis were performed. There is no evidence of ascites or lymphadenopathy. Urinary bladder unremarkable. No pelvic mass seen. Impression: Small bilateral nonobstructing renal stones. No ureteral stone or hydronephrosis on either side. Diffuse hepatic steatosis. Reviewed, dictated and finalized at [facility]. PER FEEDER Impression: Small bilateral nonobstructing renal stones. No ureteral stone or hydronephrosi s on either side. Diffuse hepatic steatosis.
[2024-08-09 22:32] VITALS: BP 216/138; PULSE 87; RESP 18; O2SAT 100
--- NOTE | 2024-08-09 22:39 | ECG_ITS ---
Test Date: 2024-08-09 22:43:42 Measurements Intervals Busy Rate: 83 P: 18 ND: 189 QRS: 22 QRSD: 82 T: 43 QT: 376 QTc: 442 Interpretive Statements SINUS RHYTHM NONSPECIFIC T-WAVE ABNORMALITY No previous ECG available for comparison Electronically Signed On 08-10-2024 18:19:57 [employer] by Chelsey Acosta M.D.
[2024-08-09 23:08] VITALS: BP 208/113; PULSE 91; RESP 14; O2SAT 100
[2024-08-09 23:23] LABS: Basophils Absolute Auto 0.1 K/mm3 (0.0-0.1); Basophils Percent Auto 0.8 % (0.2-1.2); Eosinophils Absolute Auto 0.2 K/mm3 (0-0.3); Eosinophils Percent Auto 2.5 % (0-4.4); Hematocrit 40.3 % (37.0-47.0); Hemoglobin 14.5 g/dL (12.0-15.0); Immature Granulocyte Absolute 0.02 K/mm3 (0.00-0.031); Immature Granulocyte Percent A 0.3 % (0-0.5); Lymphocytes Absolute Auto 2.81 K/mm3 (0.9-3.2); Lymphocytes Percent Auto 37.7 % (18.3-44.2); Mean Corpuscular Hemoglobin 31.4 pg (26-34); Mean Corpuscular Volume 87.2 fl (80-100); Mean Platelet Volume 9.5 fl (7.4-10.4); Monocytes Absolute Auto 0.7 K/mm3 (0.1-0.6); Monocytes Percent Auto 9.1 % (2.6-8.5); Neutrophils Absolute Auto 3.7 K/mm3 (1.3-6.7); Neutrophils Percent Auto 49.6 % (45.5-73.1); Platelet Count Result 234 k/mm3 (150-375); Red Blood Count 4.62 M/mm3 (4.2-5.4); Red Cell Distribution Width 12.6 % (11.5-14.5); White Blood Count 7.5 K/mm3 (4.5-10.0)
[2024-08-09 23:42] LABS: Alanine Aminotransferase 43 U/L (6-35); Albumin Level 4.3 g/dL (3.5-5.1); Alkaline Phosphatase 81 U/L (38-126); Anion Gap 3 mmol/L (4-12); Aspartate Amino Transferase 36 U/L (14-36); Bilirubin,Total 0.4 mg/dL (0.2-1.3); Blood Urea Nitrogen 18 mg/dL (7-17); Calcium 9.4 mg/dL (8.4-10.2); Carbon Dioxide 26 mmol/L (22-30); Chloride 107 mmol/L (98-107); Estimated CRCL calculation 90 ml/min; Estimated Glomerular Filt Rate > 60; Glucose 96 mg/dL (65-110); Potassium 3.9 mmol/L (3.4-5.0); Sodium 136 mmol/L (137-145)
[2024-08-10 00:17] LABS: BEDSIDEPREGUCG Negative (Negative)
--- NOTE | 2024-08-10 00:37 | ED.GENADULT ---
HPI - General Adult General Chief complaint: Back Pain/Injury Stated complaint: L kidney pain, swelling in L leg/foot Time Seen by Provider: 08/10/24 00:05 History of Present Illness HPI narrative: Patient is a 44-year-old female who presents emergency department with chief complaint of flank pain patient reports she has prior history of kidney stones reports that she has a large stone on the left side reports she sees Urology locally and reports that she started having severe pain Related Data Home Medications ?Medication ?Instructions ?Recorded ?Confirmed ?Last Taken ?Type multivitamin 1 tablet PO DAILY 04/04/22 02/21/24 Unknown History acetaminophen 650 mg 650 mg PO Q8H PRN Pain 12/31/22 02/21/24 Unknown History tablet,extended release ibuprofen 800 mg tablet 200 mg PO TID PRN pain 12/31/22 02/21/24 Unknown History tamsulosin 0.4 mg capsule (Flomax) 0.4 mg PO DAILY 09/21/23 02/21/24 Unknown History amlodipine 10 mg tablet 10 mg PO DAILY 02/21/24 02/21/24 Unknown History pregabalin 150 mg capsule 150 mg PO ONCE 02/21/24 02/21/24 Unknown History Allergies Allergy/AdvReac Type Severity Reaction Status Date / Time ketorolac (From Toradol) Allergy Headache,Rash, Verified 05/21/24 05:18 Swollen tongue tramadol AdvReac Mild VOMITING/HE Verified 05/21/24 05:18 ADACHE hydralazine AdvReac Headache Verified 05/21/24 05:18 Review of Systems Review of Systems: A 10 system review of systems was completed on the patient and is negative except for what is stated in the HPI. Nursing and ancillary documentation was reviewed. [facility] Past Medical History Medical History Hypertension Gastroesophageal reflux disease Sleep paralysis, recurrent isolated Smoker Obesity Depression Multiple kidney stones Seasonal allergies Surgical History Surgical History History of laparoscopic cholecystectomy on 04/25/23 PDC History of tubal ligation History of endometrial ablation (2009) History of hysterectomy (2015) History of open reduction and internal fixation (ORIF) procedure (2012) Left elbow. History of section 2000, 2001, 2009 Status post cystoscopy with ureteral stent placement Family History Family History Mother Diabetes mellitus Depression Alcoholism Father Hypertension Sibling Congenital heart disease Son Asthma Grandparent Diabetes mellitus Cerebrovascular accident Social History Social History Social History: Surrogate medical decision maker: Bang Luke, spouse. Code status: Full code. Smoking packs per day: 0.5 Smoking cigarettes per day: 10.0 Years smoked: 32 Smoking pack-years: 16.00 Smoking status: Current every day smoker Tobacco type: cigarettes Alcohol intake: never Alcohol use details: Social alcohol use in moderation. Substance use: never Substance use type: does not use Do You Feel Safe in your Home?: Yes Lack of Transportation: No Lack of Food: Never True Current Housing: I Have Housing Concerned About Future Housing: No Difficulty Paying Gas/Electric Bills: No Difficulty Paying for Meds: No Currently Unemployed: No Education: High School Diploma/GED Difficulty w/ Childcare or Family Care: No Living arrangements: with family Spiritual care concerns: No Exam Narrative: GENERAL: Well-appearing, well-nourished, and in no acute distress. HEAD: Normocephalic, atraumatic. EYES: PERRLA and EOMI. ENT: Nares clear, no rhinorrhea or epistaxis. Mucous membranes moist. NECK: Supple. CHEST: Clear to auscultation. No respiratory distress. HEART: Regular rate and rhythm. No murmur heard. Normal peripheral pulses. ABDOMEN: Soft, nontender, nondistended, normal active bowel sounds. EXTREMITIES: Normal range of motion. No edema. SKIN: Warm, dry, no rash. NEURO: No focal deficits. Alert and oriented x3. PSYCH: Normal mood and affect. Course Vital Signs Vital signs: Vital Signs Pulse Rate 87 08/09/24 22:32 Respiratory Rate 18 08/09/24 22:32 Blood Pressure 216/138 H 08/09/24 22:32 Pulse Oximetry 100 08/09/24 22:32 Oxygen Delivery Room Air 08/09/24 22:32 Temperature 36.6 C 08/10/24 00:47 Pulse Rate 78 08/10/24 03:42 Respiratory Rate 19 08/10/24 03:42 Blood Pressure 203/129 H 08/10/24 03:42 Pulse Oximetry 98 08/10/24 03:42 Oxygen Delivery Room Air 08/09/24 22:32 Medical Decision Making MDM Narrative Medical decision making narrative: Differential diagnosis includes ureterolithiasis UTI, pyelonephritis Laboratory studies were obtained on the patient showed evidence of a UTI with 21-50 white blood cells in the urine electrolytes showed normal renal function with a creatinine is 0.7 CBC showed white count 7.5 CT scan of the abdomen pelvis showed no evidence of obstructing stone. Vital Signs Vital Signs: Vital Signs Pulse Rate 87 08/09/24 22:32 Respiratory Rate 18 08/09/24 22:32 Blood Pressure 216/138 H 08/09/24 22:32 Pulse Oximetry 100 08/09/24 22:32 Oxygen Delivery Room Air 08/09/24 22:32 Temperature 36.6 C 08/10/24 00:47 Pulse Rate 78 08/10/24 03:42 Respiratory Rate 19 08/10/24 03:42 Blood Pressure 203/129 H 08/10/24 03:42 Pulse Oximetry 98 08/10/24 03:42 Oxygen Delivery Room Air 08/09/24 22:32 Lab Data 08/09/24 23:17 08/09/24 23:17 Labs: Lab Results 08/09/24 08/10/24 08/10/24 Range/Units 23:17 00:07 00:09 WBC 7.5 (4.5-10.0) K/mm3 RBC 4.62 (4.2-5.4) M/mm3 Hgb 14.5 (12.0-15.0) g/dL Hct 40.3 (37.0-47.0) % MCV 87.2 (80-100) fl MCH 31.4 (26-34) pg MCHC 36.0 (32-36) g/dl RDW 12.6 (11.5-14.5) % Plt Count 234 (150-375) k/mm3 MPV 9.5 (7.4-10.4) fl Immature Gran % (Auto) 0.3 (0-0.5) % Neut % (Auto) 49.6 (45.5-73.1) % Lymph % (Auto) 37.7 (18.3-44.2) % Randall % (Auto) 9.1 H (2.6-8.5) % Eos % (Auto) 2.5 (0-4.4) % Baso % (Auto) 0.8 (0.2-1.2) % Lymph # (Auto) 2.81 (0.9-3.2) K/mm3 Randall # (Auto) 0.7 H (0.1-0.6) K/mm3 Eos # (Auto) 0.2 (0-0.3) K/mm3 Baso # (Auto) 0.1 (0.0-0.1) K/mm3 Abs Immat Gran (auto) 0.02 (0.00-0.031) K/mm3 Absolute Neuts (auto) 3.7 (1.3-6.7) K/mm3 Absolute Nucleated RBC 0.000 (0.0-0.012) K/mm3 Nucleated RBC % 0.0 (0.0-0.2) % Sodium 136 L (137-145) mmol/L Potassium 3.9 (3.4-5.0) mmol/L Chloride 107 (98-107) mmol/L Carbon Dioxide 26 (22-30) mmol/L Anion Gap 3 L (4-12) mmol/L BUN 18 H (7-17) mg/dL Creatinine 0.70 (0.7-1.0) mg/dL Estim Creat Clear Calc 90 ml/min Estimated GFR > 60 (59 - ) Glucose 96 (65-110) mg/dL Calcium 9.4 (8.4-10.2) mg/dL Total Bilirubin 0.4 (0.2-1.3) mg/dL AST 36 (14-36) U/L ALT 43 H (6-35) U/L Alkaline Phosphatase 81 (38-126) U/L Total Protein 7.0 (6.3-8.2) g/dL Albumin 4.3 (3.5-5.1) g/dL Urine Color Yellow (Yellow) Urine Appearance Cloudy H (Clear) Urine pH 6.0 (5.0-9.0) Ur Specific [place] 1.024 (1.001-1.035) Urine Protein Negative (Negative) mg/dL Urine Glucose (UA) Negative (Negative) mg/dL Urine Ketones Negative (Negative) mg/dL Ur Blood (Man) Negative (Negative) Urine Nitrate Negative (Negative) Urine Bilirubin Negative (Negative) Urine Urobilinogen 0.2 (<2.0) mg/dL Add Ur Microanalysis Reviewed Leukocyte Esterase Rfl Negative (Negative) ALEKSANDRA/UL Urine RBC 3-5 H (0-2) /hpf Urine WBC 21-50 H (0-3) /hpf Ur Squamous Epith Cells Many H (Few) /hpf Urine Bacteria 3+ H /hpf Urine Casts 0-2 POC Urine HCG, Qual Negative (Negative) Discharge Plan Discharge Clinical Impression: UTI (urinary tract infection) Patient Disposition: Home, Self-Care Condition: Stable Instructions: Antibiotic Form, Urinary Tract Infection in Women (ED), Back Pain (ED) Patient Language: [place] Prescriptions: New cefdinir 300 mg capsule 300 mg PO Q12H 10 Days Qty: 20 0RF tamsulosin [Flomax] 0.4 mg capsule 0.4 mg PO DAILY Qty: 20 0RF hydrocodone-acetaminophen 5-325 mg tablet 1 tablet PO Q6H PRN (Reason: pain) 3 Days Qty: 12 0RF No Action multivitamin Tablet 1 tablet PO DAILY acetaminophen 650 mg tablet extended release 650 mg PO Q8H PRN (Reason: Pain) Rx Instructions: take with 800mg ibuprofen pregabalin 150 mg capsule 150 mg PO ONCE varenicline [Chantix Starting Month Box] 0.5 mg (11)- 1 mg (42) tablets,dose pack See Rx Instructions PO PER PKG DIR Qty: 53 0RF Rx Instructions: PO PER PKG DIR amlodipine 10 mg tablet 10 mg PO DAILY nebivolol [Bystolic] 10 mg tablet 10 mg PO BID 30 Days Qty: 60 1RF ondansetron 4 mg tablet,disintegrating 4 mg PO Q8H PRN (Reason: nausea and vomiting) Qty: 30 0RF ondansetron 4 mg tablet,disintegrating 4 mg PO Q8H PRN (Reason: nausea and vomiting) Qty: 10 0RF cefdinir 300 mg capsule 300 mg PO Q12H Qty: 14 0RF dicyclomine 20 mg tablet 20 mg PO TID PRN (Reason: abdominal pain) Qty: 30 0RF cefdinir 300 mg capsule 300 mg PO Q12H Qty: 14 0RF ondansetron 4 mg tablet,disintegrating 4 mg PO Q8H PRN (Reason: nausea and vomiting) Qty: 10 0RF ibuprofen 800 mg tablet 200 mg PO TID PRN (Reason: pain) tamsulosin [Flomax] 0.4 mg Capsule 0.4 mg PO DAILY potassium chloride 20 mEq tablet extended release 20 meq PO DAILY Qty: 30 0RF phenazopyridine [Pyridium] 100 mg tablet 100 mg PO TID PRN (Reason: pain) Qty: 6 0RF cyclobenzaprine 10 mg tablet 10 mg PO TID PRN (Reason: muscle spasm) Qty: 14 0RF ondansetron 4 mg tablet,disintegrating 4 mg PO Q8H PRN (Reason: nausea and vomiting) Qty: 10 0RF hydrocodone-acetaminophen 5-325 mg tablet 1 tablet PO Q6H PRN (Reason: pain) Qty: 7 0RF tamsulosin [Flomax] 0.4 mg capsule 0.4 mg PO HS Qty: 14 0RF ondansetron 4 mg tablet,disintegrating 4 mg PO Q8H Qty: 14 0RF hydrochlorothiazide 25 mg tablet 25 mg PO QAM Qty: 90 1RF losartan 50 mg tablet 50 mg PO BID Qty: 180 0RF Follow-up/Referrals: Lucas Carter DO [Primary Care Provider] -
[2024-08-10] MEDS: SODIUM CHLORIDE 0.9% IV 1,000 ML 999 ML IV CONT (00:38)
[2024-08-10] MEDS: ONDANSETRON INJ 4 MG/2 ML VIAL IV PUSH (00:38)
[2024-08-10] MEDS: HYDROmorphone HCL INJ (*CRX) 1 MG/ML SYR IV PUSH (00:38)
[2024-08-10 00:39] VITALS: PULSE 83; RESP 15; O2SAT 99
[2024-08-10 00:41] LABS: Add Urine Microscopic? YES; Appearance Urine Cloudy (Clear); Bacteria Urine 3+ /hpf; Bilirubin Urine Negative (Negative); Blood Urine Negative (Negative); Color Urine Yellow (Yellow); Glucose Urine UA Negative (Negative); Ketones Urine Negative (Negative); Leukocyte Esterase Ur Negative LEU/UL (Negative); Need Manual Microscopic Reviewed; Nitrate Urine Negative (Negative); Non Pathogenic Casts 0-2; Protein Urine Negative (Negative); Specific Grav Ur 1.024 (1.001-1.035); Squamous Epithelial Cell Urine Many /hpf (Few); Urobilinogen Urine 0.2 mg/dL (<2.0); WBC Urine 21-50 /hpf (0-3)
[2024-08-10 00:47] VITALS: TEMP 36.6
[2024-08-10 01:17] VITALS: BP 156/127; PULSE 80; RESP 16; O2SAT 95
[2024-08-10 03:42] VITALS: BP 203/129; PULSE 78; RESP 19; O2SAT 98
[2024-08-10] MEDS: HYDROcodone/acetaminophen (*CRX) 5-325 MG TABLET 1 TAB PO (03:43)
[2024-08-10] MEDS: FUROSEMIDE 20 MG TABLET PO (03:53)
--- NOTE | 2024-08-10 03:59 | PC.NURSE ---
provider aware of patient blood pressure at time of discharge. pt verbalized understanding. pt verbalized being okay. pt states she will take her blood pressure medication when she arrives at home. edp dr. love ordered 20mg lasix prior to patient discharge as requested by patient.
--- OUTSIDE RECORDS SUMMARY | 2024-08-17 01:52 | XMS_ITS | Encounter Summary ---
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 - s tarted 1 year ago Headache at least 2x a week Fatigue a lot Encounter Details Date Type Department Care Team (Late st Contact Info) Description 08/27/2016 2:00 PM CROP OR 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 FARMER Office Visit [facility] [id number] [address] [place] [address] [facility] [address] [address] Headache disorder (Primary Dx); Numbness; Leg weakness, bilateral; Arm weakness Social History Tobacco Use Types Packs/Day Years Used Date Smoking Tobacco: Every Day Cigarettes Smokeless Tobacco: Never Alcohol Use Standard Drinks/Week Comments No 0 (1 standard drink = 0.6 oz pur e alcohol) Sex and Gender Information Value Date Recorded Sex Assigned at Not on file Gender Identity Not on file Sexual Orientation Not on file documented as of this encounter Last Filed Vital Signs Vital Sign Reading Time Taken Comments Blood Pressure 142/96 08/27/2016 2:29 PM CROP OR GRAIN FARMER Pulse 88 08/27/2016 2:29 PM CROP OR GRAIN FARMER Temperature - - Respiratory Rate 16 08/27/2016 2:29 PM CROP OR GRAIN FARMER Oxygen Saturation - - Inhaled Oxygen Concentration - - Weight 74.8 kg (165 lb) 08/27/2016 2:29 PM CROP OR GRAIN FARMER Height 160 cm (5' 3 ) 08/27/2016 2:29 PM CROP OR GRAIN FARMER Body Mass Index 29.23 08/27/2016 2:29 PM CROP OR GRAIN FARMER documented in this encounter Patient Instructions * Patient Instructions* Dunia Diez - 08/27/2016 3:22 PM CROP OR GRAIN FARMER Call physician if symptoms worsen or with any questions. Take Medications as prescribed. For descriptions of a variety of neurological conditions please visit: [email or web address] Scheduling department will contact you to schedule your MRI. If you have not heard from them [email or web address] hours then please contact [phone]. *Please contact our office 48 hours after MRI testing is complete for results. Blood work can be done at your convenience. You can walk in or call [facility] to make an appointment if need be. *Please contact our office 1 week after blood work is complete for results. GABAPENTIN INSTRUCTIONS: Step 1 - Take 1 cap at bedtime for 3 days Step 2 - Take 1 cap in the morning and 1 cap at bedtime for 3 days Step 3 - Take 1 cap in the morning, 1 cap at noon, and 1 cap at bedtime for 3 days Until you reach your daily dosage of: Gabapentin 100 mg cap - take 1 caps by mouth TID. EMG INSTRUCTIONS: PLEASE DO NOT PUT ANY LOTIONS. CREAMS, OILS, OR VASELINE ON THE EXTREMITIES BEING TESTED. OR GRAIN FARMER documented in this encounter Progress Notes * Dunia Diez - 09/06/2016 4:54 PM CST Called patient left detailed message of results per HIPAA. OR GRAIN FARMER * Albert Hutchinson MD - 09/05/2016 12:48 PM CST TSH is slightly low,have her follow up with her pcp regarding this. May need a repeat study. IgA Slightly high, will watch for now .other labs normal OR GRAIN FARMER * Albert Hutchinson MD - 08/27/2016 2:36 PM CST 08/27/2016 Renee Luke 36 y.o. Referring Physician: Dr. Damian Sadler MD MD Chief Complaint: Chief Complaint Patient presents with ??? Consultation ??? Numbness both arms and legs - constantly ??? Pain both arms and legs - different types of pain everyday ??? 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 Headache at least 2x a week ??? Fatigue a lot HPI: Renee Lukeis a 36 y.o. white woman was consulted for headache, arm/leg pain for over 1 year. Headache is at the back of head, up to 7/10 stabbing pain, Not associated with nausea/vomiting or light sensitivity. 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 She had heavy leg pain from tail bone to her heels with weakness . Her hands intermittently sleep and go numb/tingling at times. She also had numbness/tingling in her feet and up to her knee cap. She has noneck pain. She has lower back pain. She had mr spine at [facility] 05/27 reporting mass without pushing onspinal cord or fluids. No surgery was recommended. 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 She had cervical injection with some relief. She was given steroids, hydrocodone and gabapentin without much pain for about 4-5 weeks. She drinks some herb teas in the morning with relief of her pain. She denies double-vision, slurred speech, incontinence of bowel bladder, tremor, unsteady gait, memory loss. Past Medical History Diagnosis Date ??? Hypertension ??? Migraine headache pressure ??? Tension headache Past Surgical History Procedure Laterality Date ??? section ??? section ??? section ??? Hysterectomy Right ??? Elbow procedure/surgery Left 2 SCREWS Current Outpatient Prescriptions Medication Sig Dispense Refill ??? ibuprofen (MOTRIN) 800 MG tablet Take 800 mg by mouth every 6 hours as needed 0 ??? ondansetron (ZOFRAN) 4 MG tablet Take 4 mg by mouth every 4 hours as needed 0 ??? lisinopril (PRINIVIL; ZESTRIL) 20 MG tablet Take 20 mg by mouth once daily ??? omeprazole (PRILOSEC) 20 MG capsule Take 20 mg by mouth daily 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 ??? HYDROcodone-acetaminophen (NORCO) 5-325 MG tablet Take 1 Tab by mouth 3 times daily as needed Reported on 08/27/2016 0 ??? acetaminophen-codeine (TYLENOL #3) 300-30 MG tablet Take 1-2 Tabs by mouth every 4 hours as needed Reported on 08/27/2016 0 ??? oxyCODONE-acetaminophen (PERCOCET) 5-325 MG tablet Take 1 Tab by mouth every 6 hours as needed Reported on 08/27/2016 0 No current facility-administered medications for this visit. Allergies Allergen Reactions ??? Tramadol Urticaria History Social History ??? Marital status: Spouse name: BANG ??? Number of children: 3 ??? Years of education: N/A Occupational History ??? DISPATCH/OPERATIONS Social History Main Topics ??? Smoking status: Current Every Day Smoker Packs/day: 0.50 Types: Cigarettes ??? Smokeless tobacco: Never Used ??? Alcohol use: No ??? Drug use: No ??? Sexual activity: Not on file Other Topics Concern ??? Not on file Social History Narrative Family Status Relation Status ??? Mother ??? Father Family History Problem Relation Age of Onset ??? Hypertension Mother ??? Hypertension Father Current Outpatient Prescriptions Medication ??? ibuprofen (MOTRIN) 800 MG tablet ??? ondansetron (ZOFRAN) 4 MG tablet ??? lisinopril (PRINIVIL; ZESTRIL) 20 MG tablet ??? omeprazole (PRILOSEC) 20 MG capsule ??? HYDROcodone-acetaminophen (NORCO) 5-325 MG tablet ??? acetaminophen-codeine (TYLENOL #3) 300-30 MG tablet ??? oxyCODONE-acetaminophen (PERCOCET) 5-325 MG tablet No current facility-administered medications for this visit. REVIEW OF SYSTEMS: Bolded are positive: Review of Systems Constitutional: Excessive sweating, weight loss, fever Eyes: Blurred vision, double vision, cataracts, glaucoma. Ears, Nose, Mouth, Throat: Ringing in ears, hearing loss, vertigo Cardiovascular: Irregular heartbeat, chest pain, fainting Respiratory: Asthma, shortness of breath, cough Genitourinary: Pain with urination, difficulty urinating, incontinence, kidney stone. Endocrine: hot/cold intolerance, increased urination, skin changes. Gastrointestinal: Abdominal pain, Nausea, vomiting Musculoskeletal: Joint pain, muscle pain, back pain, neck pain, limb pain Psychiatric: Anxiety, Depression, Mood swings. Contraception (For child-bearing woman): Pills, Depo, IUD, tubal ligation, partner had vasectomy, hysterectomy. EXAMINATION: BP 142/96 (BP SITE: LEFT ARM, BP POSITION: SITTING, BP CUFF SIZE: Large Adult) Pulse 88 Resp 16 Ht 1.6 m (5' 3 ) Wt 74.8 kg (165 lb) BMI 29.23 kg/m2 General: General appearance: well developed, in no distress CVS: No carotid bruit. Resp: Lung clear bilaterally. Abd: Non Tender. Neurological Examination: Mental Status: Awake, Alert. Oriented. Follows commands, Speech clear. Has good fund of knowledge, attention, comprehension and insight. Cranial Nerves: VFF to confrontation, Fundi normal, PERRL, EOMI, no ptosis, nystagmus or diplopia. Facial sensationintact bilaterally; Face symmetric, hearing intact bilaterally, palate symmetric Uvula, shoulder shrug symmetric, and tongue midline. Motor: Strength normal bl UEs/LEs. No asterixis, tremor or myoclonus. Normal tone. No atrophy. No Clonus. Sensation: Intact to light touch, temperature. + allodynia at bl UEs/LEs. Vibration intact. Sensorylevel to pp at bl T2-T6 in the back. Reflexes: DTRs 1. Triceps(C7) -trace-1 2. Biceps (C5,6) - 2+ 2. Brachioradialis (C6) 1+ 3. Patellar (L4) - 2+ 4. Achilles (S1) - 1+ 5. Plantar responses down going bilaterally. Coordination/Cerebellar: Intact to [id number]. Gait: walks heel and toe without difficulty, normal tandem gait and Romberg test. Station: steady. Imaging/Laboratory review: No results for input(s): SODIUM, POTASSIUM, CHLORIDE, CO2, BUN, CREATININE, GLUCOSE, CALCIUM in thelast 75432 hours. No results for input(s): WBC, HGB, HCT, PLTCOUNT in the last 46331 hours. No results for input(s): TSH in the last 97019 hours. No results for input(s): CK in the last 35572 hours. No results for input(s): PHENYTOIN in the last 38364 hours. No results for input(s): VPA in the last 80351 hours. No results for input(s): ALBUMIN, ALKPHOS, ALT, AST, TBIL, DBIL, TPROT in the last 22799 hours. No results for input(s): CHOL, TRIG, HDL, LDLCALC, LDLDIRECT in the last 18931 hours. No results for input(s): HGBA1C in the last 56480 hours. No results for input(s): WPSJTEYX61 in the last 68476 hours. No results for input(s): AMMONIA in the last 06684 hours. No results for input(s): IJZJRBZRA9VJ, NOSSEVAS9RN, WJGCUDQZ7HK, ELZ3SUMX24, JHGLUJQKLM6R, IKKFBCWRCG8C, RFZQPJUNTX1H, SSWHVSPNB7RM, CNNNCEBAR2KP, JIFRVL8CV, VKNALSRIDK9P in the last 36350 hours. No results for input(s): COLORUA, CLARITYUA, SPECGRAVUA, PHUA, PROTEINUA, BLOODUA, LEUKOCYTEUA, NITRITEUA, GLUCOSEUA, KETONEUA, BILIRUBINUA, UROBILINUA, REDSUBUA, WBCUA, RBCUA, EPITHUA, MUCUSUA, BACTUA, YEASTUA, TRICHUA in the last 45749 hours. No results for input(s): WBC, RBC, HGB, HCT, MCV, MCHC, RDW, RDWCV, PLTCOUNT, NEUTPCT, LYMPHPCT, MONOCYTPCT, EOSINPCT, BASOPHILPCT, GRANSIMMPCT, LYMPHABS, MONOCYTABS, EOSINABS, BASOABS, IMMGRANSABS, NRBCAUTO in the last 88768 hours. No results for input(s): SEDRATE in the last 24270 hours. No results for input(s): CRP in the last 42400 hours. No results for input(s): INR in the last 04199 hours. Imaging No results found. Impression: 1) headache Possible neuropathic pain 2) numbness 3) weakness Possible T2-T6 sensory level Possible spine mass Discussion: Pt came with multiple complaints as in HPI. Will need brain imaging for possible acute intracranial process contributing to headaches and numbness. This will be further evaluated by labs (for possible metabolic/nutritional/inflammatory/paraproeinmia etiology contributing to numbness) and EMG nerve conduction studies for numbness and possible neuropathy. On exam she has some sensory level around T2-T6 with decreased PP, this will be further evaluated with MR c/T spine for possible mass, given that report of T11- T12 mass on prior study. I made the following recommendations: 1) MR brain for possible acute intracranial process contributing to headache and nubmenss. 2) MR C/T spine for possible spinal lesions. 3) labs. Emg/ncv of bl UEs/LEs. Gabapentin 300mg po tid. Add 1 Pill every one to three days to target dose as tolerated. No drivingwhen drowsy. RTC 6 weeks. come to ER for neurologic deficit call for questions. The prescribed medications were discussed with the patient. Dosage and usage was explained. Warnings in regard to side effects and adverse reactions were given. The patient was advised to contact theprescribing physician with questions or concerns. When applicable, the need, benefit and risk of procedures were explained in detail, agreeable with patient. Sig. time was spent reviewing imaging and laboratory results as well as discussion of the pathophysiology of disease process, diagnostic studies and prognosis of the diagnosed condition. All pertinent questions were answered to patient's satisfaction during this clinical visit. Patient is to closely follow with primary physician for the medical needs. Thank you for involving me in Renee Luke's care Albert Hutchinson MD PhD OR GRAIN FARMER documented in this encounter Plan of Treatment Not on file documented as of this encounter Procedures Procedure Name Priority Date/Time Associated Diagnosis Comments IMMUNOFIXATION BLOOD Routine 08/27/2016 3:46 PM CROP OR GRAIN FARMER Numbness RPR Routine 08/27/2016 3:46 PM CROP OR GRAIN FARMER Numbness C-REACTIVE PROTEIN Routine 08/27/2016 3: 46 PM CROP OR GRAIN FARMER Numbness VITAMIN B6 Routine 08/27/2016 3:46 PM CROP OR GRAIN FARMER Numbness ERYTHROCYTE SEDIMENTATION RATE Routine 08/27/2016 3:46 PM CROP OR GRAIN FARMER Numbness VITAMIN B12 FOLATE PANEL Routine 08/27/2016 3:46 PM CROP OR GRAIN FARMER Numbness TSH Routine 08/27/2016 3:46 PM CROP OR GRAIN FARMER Numbness PROTEIN ELECTROPHORESIS BLOOD Routine 08/27/2016 3:46 PM CROP OR GRAIN FARMER Numbness documented in this encounter Results * VITAMIN B6 (08/27/2016 3:46 PM CROP OR GRAIN FARMER) Vitamin B6 14.9 2.0 - 32.8 ug/L [facility] ACCOUNT BILL Blood BLOOD SPECIMEN / Unknown 08/27/2016 3:46 PM CROP OR GRAIN FARMER 08/27/2016 Narrative Resulting Agency Comment [facility] [address] ??[facility] [phone] Albert Hutchinson MD LAB - CHEMISTRY TOBY BILLY [facility] Organization Address City/State/ZIP Co de Phone Number [facility] ACCOUNT BILL [address] [place] [address] * PROTEIN ELECTROPHORESIS BLOOD (08/27/2016 3:46 PM CROP OR GRAIN FARMER) Protein Total 6.9 6.0 - 8.5 g/dL [facility] ACCOUNT BILL Albumin 3.8 2.9 - 4.4 g/dL [facility] ACCOUNT BILL Alpha-1 Globulin 0.2 0.0 - 0.4 g/dL [facility] ACCOUNT BILL Gdkrp-1-Pruiannj 0.7 0.4 - 1.0 g/dL [facility] ACCOUNT BILL Beta-Globulin 1.3 0.7 - 1.3 g/dL [facility] ACCOUNT BILL Gamma Globulin 0.9 0.4 - 1.8 g/dL [facility] ACCOUNT BILL M-Juan Antonio Not Observed Not Observed g/dL [facility] ACCOUNT BILL Globulin Total 3.1 2.2 - 3.9 g/dL [facility] ACCOUNT BILL Albumin/Globulin Ratio 1.2 0.7 - 1.7 [facility] ACCOUNT BILL Please Note [facility] ACCOUNT BILL Comment: Protein electrophoresis scan will follow via computer, mail, or driving instructor delivery. P E Interpretation, S [facility] ACCOUNT BILL Comment: The SPE pattern appears essentially unremarkable. Evidence of monoclonal protein is not apparent. Blood BLOOD SPECIMEN / Unknown 08/27/2016 3:46 PM CROP OR GRAIN FARMER 08/27/2016 Narrative Resulting Agency Comment [facility] [place] [address] ??[facility], [facility] [phone] Albert Hutchinson MD LAB - CHEMISTRY TOBY BILLY Performing Organization Address [facility]/ZIP Co de Phone Number [facility] ACCOUNT BILL [address] [place] [address] * (ABNORMAL) IMMUNOFIXATION (08/27/2016 3:46 PM CROP OR GRAIN FARMER) Immunofixation Result [facility] ACCOUNT BILL Comment:No monoclonality det ected. IgG Quantitative 720 700 - 1,600 mg/dL [facility] ACCOUNT BILL IgA Quantitative 369(H) 87 - 352 mg/dL [facility] ACCOUNT BILL IgM Quantitative 115 26 - 217 mg/dL [facility] ACCOUNT BILL Blood BLOOD SPECIMEN / Unknown 08/27/2016 3:46 PM CROP OR GRAIN FARMER 08/27/2016 Narrative Resulting Agency Comment [facility] [place] [address] ??[facility], [facility] [phone] Albert Hutchinson MD LAB - CHEMISTRY TBOY BILLY Performing Organization Address [facility] Co de Phone Number [facility] ACCOUNT BILL [address] [place] [address] * VITAMIN B12 FOLATE PANEL (08/27/2016 3:46 PM CROP OR GRAIN FARMER) Vitamin B12 879 211 - 911 pg/mL [facility] ACCOUNT BILL Folate 13.6 3.1 - 17.5 ng/mL [facility] ACCOUNT BILL Blood BLOOD SPECIMEN / Unknown 08/27/2016 3:46 PM CROP OR GRAIN FARMER 08/27/2016 Narrative Resulting Agency Comment [facility] [address] [address] ??[place] [phone] Albert Hutchinson MD LAB - CHEMISTRY TOBY BILLY Performing Organization Address City/[facility]/ZIP Co de Phone Number [facility] ACCOUNT BILL [address] [place] [address] * (ABNORMAL) TSH (08/27/2016 3:46 PM CROP OR GRAIN FARMER) TSH 0.280(L) 0.358 - 3.740 uIU/mL [facility] ACCOUNT BILL Blood BLOOD SPECIMEN / Unknown 08/27/2016 3:46 PM CROP OR GRAIN FARMER 08/27/2016 Narrative Resulting Agency Comment [facility] [address] ??[place] [id number] Albert Hutchinson MD LAB - CHEMISTRY TOBY BILLY [facility] ACCOUNT BILL [address] [place] [address] * RPR (08/27/2016 3:46 PM CROP OR GRAIN FARMER) RPR Non Reactive Non Reactive [facility] ACCOUNT BILL Blood BLOOD SPECIMEN / Unknown 08/27/2016 3:46 PM CROP OR GRAIN FARMER 08/27/2016 Narrative Resulting Agency Comment [facility] [address] ??[place] [phone] Albert Hutchinson MD LAB - CHEMISTRY TOBY BILLY [facility] ACCOUNT BILL [address] [place] [address] * C-REACTIVE PROTEIN (08/27/2016 3:46 PM CROP OR GRAIN FARMER) C-Reactive Protein <0.29 <0.30 mg/dL [facility] ACCOUNT BILL Blood BLOOD SPECIMEN / Unknown 08/27/2016 3:46 PM CROP OR GRAIN FARMER 08/27/2016 Narrative Resulting Agency Comment [facility] [address] ??[place] [id number] Albert Hutchinson MD LAB - CHEMISTRY TOBY BILLY [facility] ACCOUNT BILL [address] [place] [address] * SED RATE WESTERGREN (08/27/2016 3:46 PM CROP OR GRAIN FARMER) Erythrocyte Sedimentation Rate Westergren 5 0 - 20 mm/hr [facility] ACCOUNT BILL Blood BLOOD SPECIMEN / Unknown 08/27/2016 3:46 PM CROP OR GRAIN FARMER 08/27/2016 Narrative Resulting Agency Comment [facility] [address] [facility] ??[place] [phone] Albert Hutchinson MD LAB - HEMATOLOGY ORD ERABLES [facility] ACCOUNT BILL [address] [place] [address] documented in this encounter Visit Diagnoses Diagnosis Headache disorder- Primary Headache Numbness Disturbance of skin sensation Leg weakness, bilateral Other musculoskeletal symptoms referable to limbs Arm weakness Other musculoskeletal symptoms referable to limbs documented in this encounter Care Teams [employer]ision Instrument Maker And Repairer Relationship Specialty Start Date End Date Damian Sadler MD PCP - General Internal Medicine 07/04/16 documented as of this encounter
--- OUTSIDE RECORDS SUMMARY | 2024-08-17 01:52 | XMS_ITS | Encounter Summary ---
Author Organization [facility] Healthcare Address [address] [place] [address] Care Team Providers Care Document Reviewer Name Role Phone Lucas Carter DO Primary Care Provider [phone] Reason for Visit * Auth/Cert (Routine) Specialty Diagnoses / Procedures Referred By Contac t Referred To Contact Diagnoses Left carpal tunnel syndrome Left carpal tunnel syndrome [G56.02] Procedures [facility] N/CARPAL TUNNEL SURG LEFT CARPAL TUNNEL RELEASE Referral ID Status Reason Start Date Expiration Date Visits Re quested Visits Authorized [id number] 1 1 Encounter Details Date Type Department Care Team (Late st Contact Info) Description 06/29/2024 9:00 AM FREELANCE COPYWRITER - 06/29/2024 9:30 AM FREELANCE COPYWRITER [facility] [address] [place] [id number] Mynor Francisco MD [facility] [address] [place] [address] LEFT CARPAL TUNNEL RELEASE Surgery Details Date/Time Status Location OR Service Patient Class Case Class Case Type Trauma Case? 06/29/2024 9:00 AM Posted [facility] OPERATING ROOM OR 4 Orthopaedics Outpatient Elective Panel 1 Procedure LRB Anes Op Region Wound Class Comments LEFT CARPAL TUNNEL RELEASE Left Choice Wrist Cla ss I - Clean Surgeon Surgeon Role Service Panel Mynor Francisco MD Primary Orthopaedics 1 Rylie Poole MD Resident - Assisting Ortho paedics 1 documented in this encounter Social History Tobacco Use Types Packs/Day Years Used Date Smoking Tobacco: Every Day Cigarettes 0.8 32.8 Started: 11/11/1991 Smokeless Tobacco: Never Alcohol Use Standard Drinks/Week Comments No 0 (1 standard drink = 0.6 oz pur e alcohol) AUDIT-C Answer Date Recorded Q1: How often do you have a drink containing alcohol? Never 06/23/2024 Q2: How many drinks containi ng alcohol do you have on a typical day when you are drinking? Patient does not drink Q3: How often do you have si x or more drinks on one occasion? Never 06/23/2024 Personal Safety Answer Date Recorded Have you ever been in or are you currently in a harmful physical or emotional relationship or is someone making you feel afraid or unsafe? Denies 06/29/2024 Comments No Sex and Gender Information Value Date Recorded Sex Assigned at Not on file Legal Sex Female 9:06 PM FREELANCE COPYWRITER Gender Identity Female 10/01/2023 8:44 AM FREELANCE COPYWRITER Sexual Orientation Straight 10/01/2023 8: 44 AM FREELANCE COPYWRITER documented as of this encounter Last Filed Vital Signs Vital Sign Reading Time Taken Comments Blood Pressure 118/85 06/29/2024 9:28 AM FREELANCE COPYWRITER Pulse 68 06/29/2024 9:30 AM FREELANCE COPYWRITER Temperature 36.2 ??C (97.2 ??F) 06/29/2024 9:28 AM CS T Respiratory Rate 19 06/29/2024 9:30 AM FREELANCE COPYWRITER Oxygen Saturation 99% 06/29/2024 9:30 AM FREELANCE COPYWRITER Inhaled Oxygen Concentration - - Weight 83.4 kg (183 lb 12.8 oz) 06/29/2024 7:50 AM FREELANCE COPYWRITER Height 160 cm (5' 3 ) 06/29/2024 7:50 AM FREELANCE COPYWRITER Body Mass Index 32.56 06/29/2024 7:50 AM FREELANCE COPYWRITER documented in this encounter Discharge Instructions * Discharge Instructions* Elizabeth Escobar CMA - 06/22/2024 11:10 AM FREELANCE COPYWRITER [facility] Postoperative Instructions Although you are typically numb when you go home I would recommend taking Tylenol and ibuprofen on a consistent basis today and tomorrow if you normally tolerate those medications. This will keep pain more controlled when the anesthesia wears off. POSTOPERATIVE PHYSICAL THERAPY APPOINTMENT Not needed DRESSING/WOUND CARE A large dressing has been placed on your arm to reduce motion and control swelling. Keep your dressing clean and dry. You may remove the dressing 5 days after surgery and replace with Band-Aids. Keep wound dry. No showering/bathing - do not get it wet until the sutures are removed in the office. Wear a plastic bag over your dressing/splint whenever you take a shower or bath SWELLING Swelling is normal after surgery, the amount of which is highly variable. ELEVATE the extremity above the level of your heart whenever possible to decrease swelling after surgery. For hand surgery, your hand should be higher than your elbow to take swelling away from the hand. Swelling is like water; it runs downhill. Prop hand/arm up on pillows to elevate with your fingers pointing towards the ceiling. If you are experiencing pain, be sure you are elevating as often as possible. If dressing feels too tight in spite of elevation, you may loosen outer wrap but do not remove the entire dressing. COLD THERAPY Icing is very important and should begin immediately after surgery to help limit pain and reduce swelling. Be sure cold therapy (ice bags, gel packs, or ice machine) is waterproof so that it does not leak on your dressing.A simple ice pack can be made by adding ten cubes and a small amount of water in a small zip-lock bag. Seal this small bag tightly. Place this small bag in a larger zip lock bag. Applyto the area in pain. Once dressing is removed, make sure there is a barrier between ice & skin to reduce risk of skin irritation. Discontinue the cold therapy if you develop blisters or other symptoms attributable to the cold therapy. Cold therapy can be used for 20min every hour while awake. ACTIVITIES Rest today, take it easy. Do not return to intense exercise until after MD clearance. If you had anesthesia, do not drive or make major decisions today and a responsible adult should bewith you for 24 hours Bend and straighten the parts of your hand/arm that are not included in your surgical dressing or splint. Do this at least 6 times a day, as this will help decrease swelling and speed up your recovery. This includes your fingers when exposed so that you make a full fist. If your fingers are not covered in the dressing please work on making a full fist and fully straightening them. You can use your other hand to help them along as needed. DIET Begin with clear liquids and light diet today, advance as you are able. Avoid greasy & spicy foods. Please be aware that nausea can commonly follow anesthesia and pain medications for the first few days. Always take narcotics with food to assist with nausea, DO NOT take on an empty stomach. If vomitingoccurs and does not resolve, please contact your doctor's office to obtain a nausea medication prescription. Be sure to drink plenty of liquids and NO ALCOHOLIC BEVERAGES FOR 24 HOURS or while taking narcotics. SPECIAL INSTRUCTION When taking medication, be careful as you walk, drive, climb stairs. Dizziness is not unusual, drowsiness is common. Driving should be undertaken carefully due to the effects of narcotic medications, pain, and diminished reflexes. We cannot formally approve your ability to drive. You should not drive on the day of surgery due to the effects of anesthesia. Constipation is common following anesthesia and while on narcotics. You may use over the counter stool softeners (like Colace or Senna Katarzyna) while taking narcotics to assist with constipation and difficult bowel movements. You may experience temporary numbness if you received a nerve block on the day of surgery (usually lasting 12-24 hours) or local anesthetic (usually lasting 6- 8 hours), this is normal (it is not uncommon for patients to encounter more pain on the 1st or 2nd day after surgery as anesthetic wears offand swelling peaks). Call your provider or seek immediate medical attention if you experience any of the following: Difficulty breathing Chest pain, heaviness or tightness Chills or fever over 101 degrees F Persistent nausea or vomiting Persistent or increased pain not resolved with medication PLEASE CALL if you develop symptoms of: Excessive bleeding that is expanding. (A small amount of bleeding within the first 48 hours after surgery can be expected, but DO NOT be alarmed. If bleeding is noted, ana luisa the dressing with a pen and if the amount is excessive or is expanding outside of pen marking, please call your doctor.) Excessive swelling/circulation issues. If the affected extremity becomes cold to touch, blue, tingly or numb, if you have excessive swelling/pain, or if the dressing feels too tight, you may loosen the outer dressing and elevate immediately for 20-30 minutes. If it does not improve, please call theoffice. Signs and symptoms of infection: redness, swelling, foul odor or drainage from the dressing, fever of 101-102F a few days following surgery. (Or drainage lasting longer than 5 days for shoulder surgery.) Severe and unmanageable pain despite pain medications, ice, and elevation. Pain is a normal part ofrecovery following surgery. You will NOT be pain free. Pain medication helps to decrease the discomfort and make pain more tolerable but will not completely eliminate pain. Our goal is to get your pain to a tolerable level (5 or less on 1-10 pain scale and ability to be distracted). If pain is excessive and unrelenting, please contact the surgeon's office. PAIN MEDICATION Do not take any prescription pain medication on an empty stomach. You should not drive while taking narcotic pain medication Your pain should decrease over the first few days after surgery which will allow you to take less pain medicine, increase the time between doses of medication, or stop taking all pain medicine Any request for medication refill will only be handled during normal business hours Questions - OFFICE CONTACT NUMBERS: DURING BUSINESS HOURS: Saturday - Saturday 8:00 - 4:30 Supervisor [employer] Handling: Tania phone: [phone] AFTER HOURS/WEEKEND - EMERGENCIES ONLY (NO MEDICATION REFILLS): [employer]: [phone] or toll-free The designated on-call physician will contact you. (- it may or may not be your surgeon, since all the surgeons rotate call). If you have an emergency that requires immediate attention, please proceed to the nearest emergency room. Perioperative Narcotic Considerations The Orthopedic hand surgeons of [facility] manage perioperative pain as wellas the pain after an acute injury. Our surgeons do not manage chronic pain (pain three months afterthe injury/surgery), and will refer patients seeking longer term care for their painful condition to a pain management service or their primary physician as those physicians typically establish chcf treatment relationships with patients. Following elective hand and upper extremity surgery, a prescription for an opioid-based medication may be provided. ???Minor??? procedures such as carpal tunnel release, trigger finger release and ganglion excisions will often just have over the counter medications recommended. Your surgeon will decide what is most appropriate. There are many things that a patient can do to manage their pain after surgery or after an acute injury: Move the shoulder, elbow and all other joints that are not immobilized by the post-operative dressing as much as possible. Elevate the operated hand and wrist so that swelling can be reduced. Place ice and a few ounces of tap water in a small sealed plastic bag, and place it on the outside of the surgical dressing. Keep it there until the operated part under the ice bag starts to feel cold. This can reduce both pain and swelling. Anti-inflammatory pain medication such as Advil, Aleve, generic Ibuprofen, generic Naproxen or generic Naprosyn can all be used in addition to any narcotic. Prescription anti-inflammatory pain medication can be called in to your pharmacy if ???ufpu-jso-wrijiup??? anti-inflammatory pain medication do not decrease the pain even when taken on a regular basis. These can be called in during the hours 9am to 4pm, during the workweek. ???Alternative??? treatments such as acupuncture, meditation and biofeedback can all be used to decrease post-operative pain. The Orthopedic hand surgeons of [facility] want you to be as comfortable as possible following your operation, and we want you to return to your level of active function as quickly as possible. Although narcotics (opioid medications) can have a role in obtaining pain relief after surgery or injury, the prolonged use of these highly addictive medications can- and do- have severe side effects. Even in patients who are not addicted, narcotics become less effective over time as the body becomes tolerant to the drug and there is evidence that prolonged use may increase the body???s interpretation of pain. The ???opioid epidemic??? in [place] is very real, and we as physicians are duty-bound to be as appropriate as can be in the administration of narcotics. When prescribed narcotics, you should start with a plan of how to wean off of them and where you will keep the drug to avoid any misuse by those around you. If you have any questions about our philosophy regarding the prescriptions of narcotic medications for the relief of pain following surgery orinjury, please talk to your surgeon or his/her nurse or MA. LANCE COPYWRITER documented in this encounter Medications at Time of Discharge amLODIPine (NORVASC) 10 mg tabletIndications:hy pertension Take 1 tablet (10 mg total) by mouth nightly 03/03/2024 cyclobenzaprine (FLEXERIL) 10 mg tablet Take 1 tablet (10 mg total) by mouth 3 (three) times a day as needed for muscle spasms 90 tablet 1 01/29/2024 hydroCHLOROthiazide (HYDRODIURIL) 25 mg tabletIndications:hy pertension Take 1 tablet (25 mg total) by mouth caddy 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 ibuprofen 200 mg tab/cap Take 2 tablet/capsule (400 mg total) by mouth every 6 (six) hours as needed for pain losartan (COZAAR) 50 mg tabletIndications:hy pertension Take 1 tablet (50 mg total) by mouth 2 (two) times a day MULTIVIT-MINERALS/FE RROUS FUM (MULTI VITAMIN ORAL)Indications:hea lth Take 1 tablet by mouth caddy 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 nebivoloL (BYSTOLIC) 10 mg tabletIndications:hy pertension Take 1 tablet (10 mg total) by mouth every other day 01/03/2024 omeprazole (PriLOSEC) 20 mg capsuleIndications:T reatment of Non-Bleeding Gastric Disorder Take 1 capsule (20 mg total) by mouth caddy 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 pregabalin (LYRICA) 150 mg capsule TAKE 1 CAPSULE(150 MG) BY MOUTH TWICE DAILY 60 capsule 3 05/08/2024 ondansetron ODT (ZOFRAN-ODT) 4 mg disintegrating tablet Take 1 tablet (4 mg total) by mouth every 8 (eight) hours as needed for nausea or vomiting 20 tablet 08/10/2023 HYDROcodone-acetamin ophen (NORCO) 5-325 mg per tabletIndications:Pa in Take 1 tablet by mouth every 6 (six) hours as needed for pain for up to 5 doses 5 tablet 06/29/2024 4 documented as of this encounter Ordered Prescriptions Prescription Sig Dispense Quantity Refills Last Filled Start Date End Date HYDROcodone-acetam inophen (NORCO) 5-325 mg per tabletIndications: Pain Take 1 tablet by mouth every 6 (six) hours as needed for pain for up to 5 doses 5 tablet 06/29/2024 06/30/2024 documented in this encounter Discharge Disposition Disposition Code Departure Means Destination Comment s Discharge to home or self care documented in this encounter H&P Notes * Sparkle Drake NP - 06/29/2024 7:51 AM CST Outpatient Pre-Procedure History and Physical Subjective Patient is a 44 y.o. female with chief complaint of left hand pain. Indication For Procedure: Pre-op Diagnosis * Left carpal tunnel syndrome [G56.02] Planned Procedure LEFT CARPAL TUNNEL RELEASE (L) HPI: 44 yo female with left carpal tunnel syndrome presents today for left carpal tunnel release. Past Medical History: Diagnosis Date GERD (gastroesophageal reflux disease) Hypertension Kidney stone Migraine Past Surgical History: Procedure Laterality Date CARPAL TUNNEL RELEASE Right 04/2024 SECTION x3 CHOLECYSTECTOMY 03/2023 ELBOW SURGERY Left 2012 HYSTERECTOMY 2016 KIDNEY SURGERY 2022 multiple procedures for Kidney stones Medications Prior to Admission Medication Sig Dispense Refill Last Dose/Taking amLODIPine (NORVASC) 10 mg tablet Take 1 tablet (10 mg total) by mouth nightly 06/28/2024 cyclobenzaprine (FLEXERIL) 10 mg tablet Take 1 tablet (10 mg total) by mouth 3 (three) times a day as needed for muscle spasms (Patient taking differently: Take 1 tablet (10 mg total) by mouth 3 (three) times a day as needed for muscle spasms) 90 tablet 1 Past Month hydroCHLOROthiazide (HYDRODIURIL) 25 mg tablet Take 1 tablet (25 mg total) by mouth caddy 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 06/28/2024 ibuprofen 200 mg tab/cap Take 2 tablet/capsule (400 mg total) by mouth every 6 (six) hours as needed for pain 06/28/2024 losartan (COZAAR) 50 mg tablet Take 1 tablet (50 mg total) by mouth 2 (two) times a day 06/29/2024 Morning MULTIVIT-MINERALS/FERROUS FUM (MULTI VITAMIN ORAL) Take 1 tablet by mouth caddy 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 06/28/2024 nebivoloL (BYSTOLIC) 10 mg tablet Take 1 tablet (10 mg total) by mouth every other day 06/28/2024 omeprazole (PriLOSEC) 20 mg capsule Take 1 capsule (20 mg total) by mouth caddy 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 06/28/2024 pregabalin (LYRICA) 150 mg capsule TAKE 1 CAPSULE(150 MG) BY MOUTH TWICE DAILY (Patient taking differently: Take 1 capsule (150 mg total) by mouth 2 (two) times a day as needed (neuropathy)) 60 capsule 3 Past Month ondansetron ODT (ZOFRAN-ODT) 4 mg disintegrating tablet Take 1 tablet (4 mg total) by mouth every 8(eight) hours as needed for nausea or vomiting 20 tablet 0 More than a month Allergies Allergen Reactions Ketorolac Hives and Itching Tramadol Hives and Urticaria Hydralazine Headache and Vomiting Social History Tobacco Use Smoking status: Every Day Current packs/day: 0.75 Average packs/day: 0.8 packs/day for 32.6 years (24.5 ttl pk-yrs) Types: Cigarettes Start date: 11/11/1991 Smokeless tobacco: Never Substance and Sexual Activity Drug use: Not Currently Sexual activity: Yes Partners: Male control/protection: Surgical Comment: hysterectomy Alcohol Use: Not At Risk (06/23/2024) AUDIT-C Frequency of Alcohol Consumption: Never Average Number of Drinks: Patient does not drink Frequency of Binge Drinking: Never Social History Substance and Sexual Activity Drug Use Not Currently Vitals: 06/23/24 1545 06/29/24 0750 BP: 147/99 BP Location: Right arm Patient Position: Lying Pulse: 70 Resp: 15 Temp: 36.2 ??C (97.2 ??F) TempSrc: Temporal SpO2: 95% Weight: 81.6 kg (180 lb) 83.4 kg (183 lb 12.8 oz) Height: 160 cm (5' 3 ) 160 cm (5' 3 ) Review of Systems: Review of systems per HPI and otherwise all other systems are negative Physical exam: Lungs: clear to auscultation bilaterally Heart: regular rate and rhythm, S1, S2 normal, no murmur, click, rub or gallop Neurologic: Alert and oriented x4, grossly intact Sparkle Drake NP Cosigned by Mynor Francisco MD at 06/29/2024 8:51 AM FREELANCE COPYWRITER LANCE COPYWRITER LANCE COPYWRITER documented in this encounter Miscellaneous Notes * Perioperative Nursing Note - Shira Rodriguez RN - 06/29/2024 9:47 AM FREELANCE COPYWRITER 0928 - Pt arrived to PACU w/ anesthesia and [employer]. Received report from [employer]. Pt is (arousalable or still sedated?) with spontaneous respirations on 6l mask O2. VS stable and within normal range. Surgical dressing in place on left wrist, left arm elevated on pillow. Left radial pulse 3+ with good capillary refill present left fingers warm and dry w/ good capillaryrefill. Ice applied to left wrist. Pt in bed in lowest position locked with both side rails up, nonslip socks applied, curtain open and patient near nurses station. Pt will not be left behind curtainalone. Pt assisted in all cares in recovery. Marcos score based on pre-op condition. 0949 - Pt alert and calm. Pt stated pain is 0. Pt tolerating PO liquids and crackers. Pt moved to phase II of care. 0955 - Daughter-John is at bedside. C/o pain norco 1 given. 1010 - AVS reviewed. Pt and family verbalized understanding of D/C instructions. Pt and family informed that patient is to not drive/operate heavy machinery for 24 hours. Do not make sign/authorize major decision for 24 hours. A responsible adult must be present for the first 24 hours after surgery. Have assistance with ambulation for first 24 hours after surgery. All questions answered. Pt stated pain is now 5 and nausea tolerable for D/C. No changes since previous assessment. To prepare for D/C. 1017 - Desires discharge, IV removed insyte intact dressing placed. Monitors discontinued assisted with dressing for discharge. 1030 - Pt assisted via wheelchair by RN to bathroom to void and then to car to discharge home with lamar Lopez LANCE COPYWRITER * Op Note - Mynor Francisco MD - 06/29/2024 9:12 AM CST SURGEON Mynor Francisco MD HALFWAY HOUSE COUNSELOR Rylie Poole MD PREOPERATIVE DIAGNOSIS left carpal tunnel syndrome. POSTOPERATIVE DIAGNOSIS Left carpal tunnel syndrome. PROCEDURE Left carpal tunnel release. ANESTHESIA [place] block. COMPLICATIONS None. CONDITION Stable to recovery. COUNTS Correct. SPECIMENS None. FLUIDS Per the anesthesia record. EBL: None OPERATIVE FINDINGS Thick transverse carpal ligament PREOPERATIVE INDICATION This patient has had carpal tunnel syndrome on the left side. I offered them the above release at this point. I went over the risks and benefits of surgery with risks including but not limited to risk of anesthesia, bleeding, infection, nerve injury, tendon injury, possibility of persistent pain or symptoms. They understood and wished to proceed. OPERATIVE COURSE After consent was reviewed and the operative site was marked, the patient was brought to the operating room and placed upon the operative stretcher. They underwent induction of [place] block anesthesia with a forearm tourniquet on the left side. Prepped and draped with chlorhexidine. We had a verbal time-out to verify the above information. I made a longitudinal incision in the palm radial to the hook of the hamate. This was carried sharply through the skin, subcutaneous tissue, and palmar fascia. I visualized the transverse carpal ligament. There were no aberrant motor nerve branches seen. I incised the ligament under direct vision along its ulnar border into the fat pad of the palm distally and through the antebrachial fascia of the forearm proximally. Contents of canal were normal. The transverse carpal ligament was thick and fibrotic. We irrigated the wound. Closed the skin with nylon suture. Local anesthetic injected. Soft dressing applied. Tourniquet let down. The patient was taken to recovery in stable condition. I was present for the entire case. LANCE COPYWRITER * Perioperative Nursing Note - Liudmila Mcgrath RN - 06/29/2024 7:46 AM FREELANCE COPYWRITER Pt in bed in lowest position locked with both side rails up, nonslip socks applied, curtain open and patient near nurses station. Pt will not be left behind curtain alone. Pt's dtr, john with pt. Pt states daughter, Tania, will care for and remain with pt for 24 hours post surgery. LANCE COPYWRITER * Pre-Procedure Instructions - Chasity Tafoya RN - 06/26/2024 11:42 AM FREELANCE COPYWRITER We are pleased that you and your doctor have chosen [facility] for your surgery. We hope the following information will help make your visit a pleasant one. The name of the building is [facility] [place] in [place]. Directions to facility ([place] [address] [place] [address] When you enter the building, look directly to your left, you will see 2 glass double doors. These double doors say [address]. Go through those double doors and check in with the legal receptionist. PT STATES SHE WAS SEEN IN ED ON 06/24 FOR HIGH KIDNEY STONES. STATES NO INTERVENTION WAS REQUIRED AND WAS TOLD HER [facility]A SHOWED NO SX OF INFECTION. NO MEDICATIONS PRESCRIBED. STATES PAIN HAS RESOLVEDAND CONT TO DENY SX OF UTI. PT WILL CALL OVER THE WEEKEND IF PAIN OR SX OF UTI OCCUR. Bring pillows, leave in car. Wear loose-fitting clothes. Something with an elastic waist on the bottom, such as gym shorts or sweat pants depending on the weather. T-shirt on top or a shirt with a loose sleeve unless you are having shoulder surgery then wear a loose- fitting button-down shirt or a shirt that zips up the front. Pt instructed by CPAP not to eat anything after Midnight. CPAP instructed pt.-->You may have clear liquids on the day of surgery until two hours before your arrival to the Orthopedic center, clear liquids until 0500. Acceptable clear liquids include water, clear sports drinks, unsweetened tea, black coffee or clear soda. Do NOT drink Milk, creamer or Alcohol. You MUST STOP drinking two hours before you arrive to the Orthopedic center. No gum, no mints , no candy, no cough drops, no CBD oil, no marijuana, no Chewing tobacco, or vaping. No ice or water. You may brush your teeth, just make sure you spit it all out. Instructed to patient to refer to [facility] surgery guide page 6 for any questions regarding eating and drinking day of surgery. For medications that the Nurse Practitioner instructed you to take on the morning of surgery, take the medications with a few sips of water. Pt's. ADULT DAUGHTER JOHN [phone] will be with patient and HER WILL care for patientfor the first 24 hours post-op. Pt. Instructed to arrive at 0700 for 0900 procedure. Procedure is scheduled for 1/2 hour(s). Pt. Denies any of the following symptoms: Nausea/vomiting/diarrhea, loss of taste or smell, rash orsores, body/muscle/joint aches, cough, sore throat, fever/chills, severe headache or Shortness of breath. Pt. is asymptomatic and denies any exposure to Covid or any Covid symptoms. Explained to patient, if you develop any symptoms of fever, chills, headache, cough, sore throat, body aches or is exposed to anyone that has been diagnosed, tested or quarantined for the COVID-19 you will not be allowed to enter the building or to have your surgery per anesthesia's guidelines. Explained to patient to please call the morning of surgery, any time after 5:30 a.m. if you or your caregiver develops any of these symptoms or is exposed to anyone that has been diagnosed, tested or quarantined for COVID-19. Pt. Reports understanding. Once your physician has completed your surgery, he will call your caregiver to notify them your surgery is complete, and you are heading to the Recovery room. Your caregiver will not be called back to be with you until you are awake and ready for discharge. The nurse who is caring for you will callyour caregiver to come back to be with you for discharge instructions. Explained to patient that the self-serve cafe is across the park from the surgery center. Explainedto patient if their caregiver would like anything to eat or drink, they may bring their own or purchase it from the refreshment area. LANCE COPYWRITER * Pre-Procedure Instructions - Blanquita Centeno NP - 06/24/2024 2:58 PM CST [facility] Location: [facility] The night before your surgery: * Do not eat anything after midnight the night before your procedure. The morning of your surgery: * You may have clear liquids on your surgery day. You must stop drinking two hours before you arrive to the surgery facility. Acceptable clear liquids include water, clear sports drinks, black coffee, tea, or clear soda. DO NOT drink any milk, creamer, or alcohol. * Your surgeon's office may have provided additional instructions or restrictions. Please follow those instructions. * You may brush your teeth and rinse your mouth out. * Do not glue your dentures. * Do not wear jewelry, body piercings, makeup, hairpins, false eyelashes or contact lenses to the hospital. * Leave any valuables at home or with your family. * If you are still having menstrual cycles, you should come with a full bladder on the morning of surgery in order to provide a urine sample. Outpatient Surgery: * You must have a responsible adult drive you home and stay with you for 24 hours after your surgery * You cannot be alone at home or in a hotel * Please call your surgeon's office if you do not have someone to drive you home and/or stay with you after surgery * Please bring any items you may need to spend the night in the hospital. Sometimes patients need to be cared for in the hospital overnight. If you are a smoker: * You should prepare for your surgery and recovery well ahead of time. Stop smoking at least 2 weeks before surgery to help prevent infection and help your body recover faster. Ask your surgeon for tools to help you quit or call 5-390-XMHSDQN ( ). Visit Smokefree.gov for more information. * Do not smoke during the 24 hours before surgery. Instructions For Your Medications: Pre-Surgery Instructions: Medication Instructions amLODIPine (NORVASC) 10 mg tablet Per usual schedule cyclobenzaprine (FLEXERIL) 10 mg tablet Don't take on day of surgery hydroCHLOROthiazide (HYDRODIURIL) 25 mg tablet Per usual schedule ibuprofen 200 mg tab/cap Don't take on day of surgery losartan (COZAAR) 50 mg tablet Per usual schedule MULTIVIT-MINERALS/FERROUS FUM (MULTI VITAMIN ORAL) Don't take on day of surgery nebivoloL (BYSTOLIC) 10 mg tablet Per usual schedule omeprazole (PriLOSEC) 20 mg capsule Per usual schedule ondansetron ODT (ZOFRAN-ODT) 4 mg disintegrating tablet Take on day of surgery if needed pregabalin (LYRICA) 150 mg capsule Take on day of surgery if needed General Instructions For Medications: For medications that you are instructed to take on the morning of surgery, take the medications with a few sips of water. Stop all of these medications 7-14 days prior to your surgery: Vitamin E, Herbal medicines, Diet Pills If you have pain, you may take tylenol (acetaminophen). Do not take more than 6 tablets or 3000 mg (3 g) within a 24 period. Call your surgeon and the CPAP clinic if any of the following happens before surgery: Any changes in your health You have a fever You have any signs of an infection (chest, urinary tract or tooth) You have been to the Emergency Room or were in the hospital You have started taking any new medications If laboratory testing was completed during your visit, we will only contact you regarding any results that require you to take additional action prior to your planned procedure. LANCE COPYWRITER LANCE COPYWRITER * Perioperative Nursing Note - Judit Iniguez RN - 06/23/2024 3:53 PM FREELANCE COPYWRITER [place] for Preoperative Assessment and Planning Perioperative Nursing Note Telephone Preoperative Evaluation ([facility]) - TELEPHONE ONLY, NO PHYSICAL EXAM Date: 06/23/24 This assessment was completed with the patient. Vitals: 06/23/24 1545 Weight: 81.6 kg (180 lb) Height: 160 cm (5' 3 ) CHEST CIRCUMFERENCE: Social History Tobacco Use Smoking Status Every Day Current packs/day: 0.75 Average packs/day: 0.8 packs/day for 32.6 years (24.5 ttl pk-yrs) Types: Cigarettes Start date: 11/11/1991 Smokeless Tobacco Never Substance and Sexual Activity Drug Use Never Alcohol Use Q1: How often do you have a drink containing alcohol?: Never Q2: How many drinks containing alcohol do you have on a typical day when you are drinking?: Patientdoes not drink Q3: How often do you have six or more drinks on one occasion?: Never Outpatient Medications Marked as Taking for the 06/29/24 encounter (Hospital Encounter) Medication Sig Dispense Refill ibuprofen 200 mg tab/cap Take 2 tablet/capsule (400 mg total) by mouth every 6 (six) hours as needed for pain amLODIPine (NORVASC) 10 mg tablet Take 1 tablet (10 mg total) by mouth nightly cyclobenzaprine (FLEXERIL) 10 mg tablet Take 1 tablet (10 mg total) by mouth 3 (three) times a day as needed for muscle spasms (Patient taking differently: Take 1 tablet (10 mg total) by mouth 3 (three) times a day as needed for muscle spasms) 90 tablet 1 hydroCHLOROthiazide (HYDRODIURIL) 25 mg tablet Take 1 tablet (25 mg total) by mouth caddy 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 losartan (COZAAR) 50 mg tablet Take 1 tablet (50 mg total) by mouth 2 (two) times a day MULTIVIT-MINERALS/FERROUS FUM (MULTI VITAMIN ORAL) Take 1 tablet by mouth caddy 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 nebivoloL (BYSTOLIC) 10 mg tablet Take 1 tablet (10 mg total) by mouth every other day omeprazole (PriLOSEC) 20 mg capsule Take 1 capsule (20 mg total) by mouth caddy 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 ondansetron ODT (ZOFRAN-ODT) 4 mg disintegrating tablet Take 1 tablet (4 mg total) by mouth every 8(eight) hours as needed for nausea or vomiting 20 tablet 0 pregabalin (LYRICA) 150 mg capsule TAKE 1 CAPSULE(150 MG) BY MOUTH TWICE DAILY (Patient taking differently: Take 1 capsule (150 mg total) by mouth 2 (two) times a day as needed (neuropathy)) 60 capsule 3 Implants Type Not Specified Screw - Implanted (Left) Elbow As of 04/20/2024 Status: Implanted SKIN Piercings Remaining: Yes Wound (LDAs) Type of Wound (LDA): (none) SCREENINGS Sohail index score: 100 NUTRITION PATIENT CARE PLANNING Advance Directives (For Healthcare) Have you reviewed your Advance Directive and is it valid for this stay?: Not applicable Advance Directive: Patient does not have advance directive Information Provided on Healthcare Directives: No Communication/[employer] Needs Communication Needs: Glasses Does caregiver's language differ from patient's?: No Assistive Devices/DME: Eyeglasses Discharge Planning Type of Residence: Private residence Living Arrangements: Spouse/significant other Support Systems: Spouse/significant other Assistance Needed: Daughter to provide discharge transportation Patient expects to be discharged to: Private residence 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 Arrival time and surgical time will be provided to the patient by their surgeon. You should wear clothing that is clean, loose, comfortable and easy to get in and out of on the dayof surgery. You should remove nail coverings, artificial nails and nail mexican prior to the day of surgery. This is to lower your risk of infection and to allow the day of surgery team to monitor your oxygen levels. You should leave your valuables and any jewelry at home. No metal or piercings are allowed in the operating room. You should bring your insurance card, a photo ID (example: Reproductive Healthcare Assistant's License) and a method of payment for any insurance copay, deductible or copay for discharge medications. You should bring a complete, up-to-date, list of all your medications on the day of surgery, including any over the counter medications or supplements you may take. Please note on your medication list, the last date & time you took each medication. The healthcare team, on the day of surgery, will ask for this information. You should bring your Advanced Directive and/or Living Will with you on the day of surgery if you have not verified a copy is already in your Epic Chart. If you are having surgery at [facility], please arrive on the day of surgery with the name and phone number of your local 24 hour pharmacy. Due to evening discharges, your routine pharmacy may be closed. In order to obtain your prescriptions that evening, your surgeon may need to send prescriptions to this pharmacy or have you take prescriptions to this pharmacy when you are discharged. Without this information, you may not be able to obtain your prescriptions that evening. A Guide for Patients Having Surgery: Your Pathway to Excellent Care OUR GOAL IS TO PROVIDE YOU WITH EXCELLENT CARE Use this guide to learn about what you can do before, during and after surgery to help your recovery. You are the most important person on your health care team. By becoming informed and involved, you can contribute to the success of your surgery. If your surgeon's directions are different than those in this guide, talk with your nurse or surgeon to confirm the information. It is important that you understand how to take care of yourself at home after surgery. Be sure to bring this guide with you on the day of surgery and take it home with you after surgery. Write down questions for your nurse or surgeon on the last page of this booklet. Important pages to be reviewed BEFORE surgery: Page 1: QR codes for Surgery Center maps Page 3: Types of Anesthesia Page 5: Tips for the day & night before surgery Page 6: When to stop eating BEFORE surgery and examples of clear liquids Page 7-10: Preventing Infection: Chlorhexidine Gluconate (CHG) Bathing Instructions You may access A Guide for Patients Having Surgery: Your Pathway to Excellent Care by the followinglink: [email or web address] How To Prepare Your Skin For Surgery Below is the Pre-Surgical Bathing Protocol you should follow for your surgery. If your surgeon provides you different bathing instructions, please follow your surgeon's orders. Normal Bathing Normal Bathing Protocol Bathe with your normal soap the night before and/or the morning of surgery. Wear clean clothes or pajamas to sleep in. After showering DO NOT put on deodorant, hair products, conditioners, lotions, creams, powders, Vaseline or any non-essential products. Remove nail coverings, artificial nails and nail mexican. Place clean linens on your bed the night before surgery. Shaving: You may shave your face, legs and underarms during your evening shower. Avoid shaving on the day of surgery. Travel/Exposure Screening: Travel Screening Have you traveled outside the [place] in the last 6 months?: No Exposure Screening Have you been exposed to anyone who is sick in the last 30 days?: No Have you been exposed to or tested positive for COVID-19 within the last 10 days?: No Infectious Disease Screening Are you having any of the following:: None As of 06/05/2022 any COVID TESTING required for surgery will be set up by your surgeon's office. Please reach out to your surgeon's office if you develop any COVID symptoms, test positive for COVID or are exposed to a COVID positive person. If you have questions, please call the CPAP Staff at [phone], Saturday-Saturday 8am-4:30pm. All patients should read the below section: Information on [facility] & the Orthopedic Center: Please view [email or web address] (Patient & Visitor Information) for additional details regarding Advanced Directive forms, AWARE, directions, parking information, lodging, Internet access, dining and more. Information on [facility] or [facility] ([facility]): Please view [email or web address] (Patient and Visitor Information) for parking, directions, lodging and more. For MyChart information, to activate account or password recovery, please go to [email or web address] or call [phone] (toll-free: [phone]), Sat- Saturday 8am-5pm. Information for Suicide Prevention: National Suicide Prevention Lifeline (4-802- 935-LGUZ (3491)) or call or text 078. Zkatter resources: [email or web address] [email or web address]. Surgery Times: For patients having surgery @ The [facility], if your surgeon's office has not notified you of your surgery time by NOON THE BUSINESS DAY BEFORE your surgery, please call the surgery center [phone]. The [facility] for Preoperative Assessment & Planning ([facility]) does not provide arrival times for theday of surgery or provide the duration of surgery. This information is provided by your surgeon's office or by the center where you are having surgery. We appreciate your understanding. LANCE COPYWRITER documented in this encounter Plan of Treatment Not on file documented as of this encounter Goals Goal Patient Goal Type Associated Problems Recent Progress Patient-Stated? Author CCM Chronic Pain Care Plan Chronic Care Management No Steph Millard, KHADAR Note: Problem: Chronic Pain Goals: 1. Minimize further functional decline 2. Maximize quality of life 3. Control pain Strategies: - Activity/exercise program recommendation - Conservative stepwise pain medicine strategy with multi-disciplinary approach - Recommend healthy lifestyle strategies and compensatory methods as needed Reduce the likelihood of falling Lifestyle No Steph Millard, KHADAR Note: Below are four things you can do to prevent falls: Begin an exercise program to improve your leg strength & balance Ask your doctor or pharmacist to review your medicines Get annual eye check-ups & update your eyeglasses Make your home safer by: Removing clutter & tripping hazards Putting railings on all stairs & adding grab bars in the bathroom Having good lighting, especially on stairs Contact your local community or senior center for information on exercise, fall prevention programs, or options for improving home safety. documented as of this encounter Procedures Procedure Name Priority Date/Time Associated Diagnosis Comments RELEASE CARPAL TUNNEL 06/29/2024 9:03 AM FREELANCE COPYWRITER Left carpal tunnel syndrome POCT PREOP SCREEN ([id number]- HBG-HCT) Routine 06/29/2024 8:12 AM FREELANCE COPYWRITER documented in this encounter Results * POCT Preop screen ([id number]) (06/29/2024 8:12 AM FREELANCE COPYWRITER) K POC 3.7 3.3 - 4.9 mmol/L Comment: Interpretive Data This method is not able to assess for hemolysis, which may falsely increase potassium concentrations. If further testing is needed to evaluate this result, consider in-laboratory plasma potassium. Current Interpretive Data was last revised on 2022. Blood 06/29/2024 8:12 AM FREELANCE COPYWRITER 06/29/2024 8:12 AM FREELANCE COPYWRITER us Mynor Francisco MD LAB POCT ORDERABLES - DEV ICE Final Result [facility] Department [place] [address] documented in this encounter Visit Diagnoses Diagnosis Left carpal tunnel syndrome- Primary Carpal tunnel syndrome Left carpal tunnel syndrome Carpal tunnel syndrome Left carpal tunnel syndrome Carpal tunnel syndrome documented in this encounter Admitting Diagnoses Diagnosis Left carpal tunnel syndrome Carpal tunnel syndrome documented in this encounter Administered Medications Inactive Administered Medications - up to 3 most recent administrations Medication Order MAR Action Action Date Dose Rate Site HYDROcodone-acetaminophen (NORCO) 5-325 mg per tablet 1 tablet 1 tablet, oral, Every 30 min PRN, 2nd line for pain, Starting on Sat06/29/24 at 0935, For 2 doses, Phase I, Indications: PainIndications:Pain Given 06/29/2024 9:55 AM FREELANCE COPYWRITER 1 tablet Lactated Ringer's (LR) infusion 30 mL/hr, intravenous, Continuous, Starting on Sat06/29/24 at 0815, Pre-Op, Use a 500 ml bag for End Stage Renal Disease Patients Restarted 06/29/2024 9:01 AM FREELANCE COPYWRITER New Bag 06/29/2024 8:12 AM FREELANCE COPYWRITER 30 mL/hr 30 mL/hr lidocaine (PF) (XYLOCAINE) 10 mg/mL (1 %) preservative free injection 2-10 mg 2-10 mg (0.2-1 mL), subcutaneous, Once as needed, pain with IV placement, Starting on Sat06/29/24 at 0740, For 1 dose, Pre-Op, Administer volume needed to infiltrate IV site. Given 06/29/2024 8:12 AM FREELANCE COPYWRITER 2 mg Right Hand ROPivacaine (NAROPIN) 5 mg/mL (0.5 %) preservative free injection As needed, Starting on Sat06/29/24 at 0922, Intra-Op Given 06/29/2024 9:22 AM FREELANCE COPYWRITER 8 mL Surgical Site sodium chloride 0.9% irrigation As needed, Starting on Sat06/29/24 at 0920, Intra-Op Given 06/29/2024 9:20 AM FREELANCE COPYWRITER 500 mL Surgical Site documented in this encounter Discontinued Medications Medication Sig Discontinue Reason Start Date End Da te HYDROcodone-acetaminophe n (NORCO) 5-325 mg per tabletIndications:Pain Take 1 tablet by mouth every 6 (six) hours as needed for pain Therapy completed 04/20/2024 06/23/2024 documented as of this encounter Historical Medications * This list may reflect changes made after this encounter. ibuprofen 200 mg tab/cap Take 2 tablet/capsul e (400 mg total) by mouth every 6 (six) hours as needed for pain added in this encounter Active and Recently Administered Medications Times are shown in FREELANCE COPYWRITER. Scheduled Medication Order 06/27/2024 06/28/2024 06/29/2024 scopolamine patch 72 hour 1 patch 1 patch, transdermal, Administer over 72 Hours, Once, On Sat06/29/24 at 0815, For 1 dose, Pre-Op, Apply for patients with motion sickness, h/o PONV, and for beach-chair shoulder cases Avoid for patients with BPH or glaucoma. , Indications: Prevention of Post-Operative Nausea and Vomiting 0815 (Due) Continuous Medication Order 06/27/2024 06/28/2024 06/29/2024 Lactated Ringer's (LR) infusion 30 mL/hr, intravenous, Continuous, Starting on Sat06/29/24 at 0815, Pre-Op, Use a 500 ml bag for End Stage Renal Disease Patients 0812 (New Bag - Prov ider: Liudmila Mcgrtah RN)0900 (Paused - Provider: Priscilla Connolly CRNA - Comment: Switch to gravity)09 (Restarted - Provider: Priscilla Connolly CRNA)09 (Anesthesia Volume Adjustment - Provider: Priscilla Connolly CRNA)0935 (Stopped - Provider: Shira Rodriguez RN) Lactated Ringer's (LR) infusion 125 mL/hr, intravenous, Continuous, Starting on Sat06/29/24 at 1015, Phase I 09 (Continued from OR - Provider: Shira Rodriguez RN)101 (Stopped - Provider: Shira Rodriguez RN) PRN Medication Order 06/27/2024 06/28/2024 06/29/2024 diphenhydrAMINE (BENADRYL) 50 mg/mL injection 12.5 mg 12.5 mg, intravenous, Administer over 1 Minutes, Every 5 min PRN, itching, other, For Nausea, administer 25 mg IV., Starting on Sat06/29/24 at 0935, For 4 doses, Phase I, Max cumulative dose 50 mg., Indications: Itching fentaNYL (SUBLIMAZE) preservative free syringe 25 mcg 25 mcg, intravenous, Every 10 min PRN, 1st line for pain, Starting on Sat06/29/24 at 0935, For 4 doses, Phase I, Notify anesthesiologist if total PACU dose reaches 100 mcg AND pain score 5/10 or more. When patient able to tolerate PO, proceed to 2nd line analgesic agent for pain management., Indications: Pain hydrALAZINE (APRESOLINE) injection 5 mg 5 mg, intravenous, Administer over 2 Minutes, Every 5 min PRN, high blood pressure, Starting on Sat06/29/24 at 0935, Phase I, Max cumulative dose 20 mg. Dose if systolic BP greater than 180 AND heart rate less than 70., Indications: hypertension HYDROcodone-acetaminophen (NORCO) 5-325 mg per tablet 1 tablet 1 tablet, oral, Every 30 min PRN, 2nd line for pain, Starting on Sat06/29/24 at 0935, For 2 doses, Phase I, Indications: Pain 0955 (Given - Provid er: Shira Rodriguez RN) labetaloL (NORMODYNE,TRANDATE) injection 5 mg 5 mg, intravenous, Every 5 min PRN, high blood pressure, Starting on Sat06/29/24 at 0935, For 4 doses, Phase I, Max cumulative dose 20 mg. Dose if systolic blood pressure greater than 180 AND HR greater than 70. lidocaine (PF) (XYLOCAINE) 10 mg/mL (1 %) preservative free injection 2-10 mg (COMPLETED) 2-10 mg (0.2-1 mL), subcutaneous, Once as needed, pain with IV placement, Starting on Sat06/29/24 at 0740, For 1 dose, Pre-Op, Administer volume needed to infiltrate IV site. 0812 (Given - Provid er: Liudmila Mcgrath RN) meperidine (DEMEROL) preservative free injection 12.5 mg 12.5 mg, intravenous, Administer over 5 Minutes, Every 10 min PRN, shivering, Starting on Sat06/29/24 at 0935, For 2 doses, Phase I, Max cumulative dose 25 mg., Indications: Shivering naloxone (NARCAN) 0.4 mg/mL injection 0.04-0.4 mg 0.04-0.4 mg, intravenous, Once as needed, other, excessive sedation/respiratory depression, Starting on Sat06/29/24 at 0935, For 1 dose, Phase I, Dilute 0.4 mg with 9 mL NS (final concentration 0.04 mg/mL). For respiratory depression (respiratory rate less than 6), administer 0.4 mg IVP over 30 seconds. For excessive sedation administer 0.04 mg (1 mL) every 1 minute until desired level of alertness. Consult with Anesthesiologist before administration. Administer 40 mics at a time. For IV, administer over 30 seconds., Indications: Opioid Toxicity ondansetron (ZOFRAN) injection 4 mg 4 mg, intravenous, Administer over 2 Minutes, Once as needed, nausea, vomiting, Starting on Sat06/29/24 at 0935, For 1 dose, Phase I, Proceed to prochlorperazine if ondansetron has been given within the last 6 hours. prochlorperazine (COMPAZINE) injection 5 mg 5 mg, intravenous, Administer over 2 Minutes, Once as needed, nausea, vomiting, May give second 5 mg dose if nausea not improved after 15 minutes., Starting on Sat06/29/24 at 0935, For 2 doses, Phase I, If nausea/vomiting not relieved by ondansetron within 30 minutes or if ondansetron has been given within the last 6 hours. ROPivacaine (NAROPIN) 5 mg/mL (0.5 %) preservative free injection (CANCELED) As needed, Starting on Sat06/29/24 at 0922, Intra-Op 0922 (Given - Provid er: Mynor Francisco MD) sodium chloride 0.9% flush 0.5-20 mL 0.5-20 mL, intra-catheter, As needed, line care, Flush Kelly Block Hep Locks to keep vein open., Starting on Sat06/29/24 at 0740, Pre-Op, Flush volume based on line type and size. Flush before and after each use. , Indications: Flushing sodium chloride 0.9% irrigation (CANCELED) As needed, Starting on Sat06/29/24 at 0920, Intra-Op 0920 (Given - Provid er: Mynor Francisco MD) documented in this encounter Orders Medications Ordered That Noe ht Not Have Been Administered Count Last Ordered Date First Ordered Date diphenhydrAMINE (BENADRYL) 5 0 mg/mL injection 12.5 mg 1 06/29/2024 fentaNYL (SUBLIMAZE) preserv ative free syringe 25 mcg 1 06/29/2024 hydrALAZINE (APRESOLINE) injection 5 mg 1 1 08/29/2023 labetaloL (NORMODYNE,TRANDAT E) injection 5 mg 1 06/29/2024 Lactated Ringer's (LR) infusion 1 meperidine (DEMEROL) preserv ative free injection 12.5 mg 1 06/29/2024 naloxone (NARCAN) 0.4 mg/mL injection 0.04-0.4 mg 1 06/29/2024 ondansetron (ZOFRAN) injection 4 mg 1 06/29 prochlorperazine (COMPAZINE) injection 5 mg 1 06/29/2024 scopolamine patch 72 hour 1 patch 1 024 sodium chloride 0.9% flush 0.5-20 mL 1 06/12 documented in this encounter Care Teams Document Reviewer Relationship Specialty Start Date End Date Lucas Carter DO PCP - General Internal Medicine 08/15/22 documented as of this encounter
--- OUTSIDE RECORDS SUMMARY | 2024-08-17 01:52 | XMS_ITS | Patient Health Summary ---
Author Organization [facility] Address [address] [place] [address] Care Team Providers Care Marriage Performer Name Role Phone Damian Sadler MD Primary Care Provider [phone] Note from [facility],non-owned Affiliates and Associated Physician Practices is amultiple site organization consisting of ambulatory clinics and hospital sitesin [place], [place], [place] and [place]. This disclosure is being madepursuant to the Care Everywhere program and may not contain all information available regarding this patient. Last updated 18.[facility] Allergies * Hydralazine(Vomiting) * Ketorolac(Itching) * Tramadol(Urticaria) -Medium Criticality Medications * Be aware that medications may not be up to date on this document. Alwaysverify current medications with the patient. * omeprazole (PRILOSEC) 20 MG capsule Take 1 (one) capsule by mouth daily 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 * tamsulosin (Flomax) 0.4 MG capsule(Started 02/03/2024) Take 1 (one) capsule by mouth once daily after breakfast At the same time every day after a meal. * ondansetron, disintegrating, (Zofran ODT) 4 MG tablet(Started 02/03/2024) Take 1 (one) tablet by mouth every 6 hours as needed for Nausea/Vomiting Allow tablet to dissolve on the tongue Active Problems Problem Noted Date Diagnosed Date Headache disorder 08/27/2016 Numbness 08/27/2016 Arm weakness 08/27/2016 Leg weakness, bilateral 08/27/2016 Social History Tobacco Use Types Packs/Day Years Used Date Smoking Tobacco: Every Day Cigarettes Smokeless Tobacco: Never Tobacco Cessation:Ready to Q uit: Not Asked; Counseling Given: Not Answered Alcohol Use Standard Drinks/Week Comments No 0 (1 standard drink = 0.6 oz pur e alcohol) AUDIT-C Answer Date Recorded Frequency of Alcohol Consumption Not on file 02/02/2024 Q2: How many drinks containi ng alcohol do you have on a typical day when you are drinking? Patient does not drink Frequency of Binge Drinking Not on file 01/11 Sex and Gender Information Value Date Recorded Sex Assigned at Not on file Gender Identity Not on file Sexual Orientation Not on file Last Filed Vital Signs Vital Sign Reading Time Taken Comments Blood Pressure 172/92 02/20/2024 9:18 AM CDT Pulse 86 02/20/2024 9:18 AM CDT Temperature 36.2 ??C (97.1 ??F) 02/03/2024 2:00 AM CD T Respiratory Rate 16 02/20/2024 9:18 AM CDT Oxygen Saturation 97% 02/20/2024 9:18 AM CDT Inhaled Oxygen Concentration - - Weight 81.6 kg (180 lb) 02/20/2024 9:18 AM CDT Height 160 cm (5' 3 ) 02/20/2024 9:18 AM CDT Body Mass Index 31.89 02/20/2024 9:18 AM CDT Procedures * XR SI JOINTS 3VW OR MORE(Performed 02/20/2024) Performed for Polyarthralgia, Numbness, Myalgia, multiple sites, Other low back pain, Cervicalgia, Other fatigue, Encounter for long-term (current) use of high- risk medication * XR LUMBAR SPINE 2 OR 3VW(Performed 02/20/2024) Performed for Polyarthralgia, Numbness, Myalgia, multiple sites, Other low back pain, Cervicalgia, Other fatigue, Encounter for long-term (current) use of high- risk medication * XR HAND BILAT 2VW(Performed 02/20/2024) Performed for Polyarthralgia, Numbness, Myalgia, multiple sites, Other low back pain, Cervicalgia, Other fatigue, Encounter for long-term (current) use of high- risk medication * FERRITIN(Performed 02/20/2024) Performed for Polyarthralgia, Numbness, Myalgia, multiple sites, Other low back pain, Cervicalgia, Other fatigue, Encounter for long-term (current) use of high- risk medication * INTERPRETATION REFLEXED(Performed 02/20/2024) Performed for Polyarthralgia, Numbness, Myalgia, multiple sites, Other low back pain, Cervicalgia, Other fatigue, Encounter for long-term (current) use of high- risk medication * RHEUMATOID FACTOR BLOOD QUANTITATIVE(Performed 02/20/2024) Performed for Polyarthralgia, Numbness, Myalgia, multiple sites, Other low back pain, Cervicalgia, Other fatigue, Encounter for long-term (current) use of high- risk medication * PROTEIN ELECTROPHORESIS BLOOD(Performed 02/20/2024) Performed for Polyarthralgia, Numbness, Myalgia, multiple sites, Other low back pain, Cervicalgia, Other fatigue, Encounter for long-term (current) use of high- risk medication * RHEUMATOID ARTHRITIS 14-3-3 ETA(Performed 02/20/2024) Performed for Polyarthralgia, Numbness, Myalgia, multiple sites, Other low back pain, Cervicalgia, Other fatigue, Encounter for long-term (current) use of high- risk medication * IMMUNOFIXATION BLOOD(Performed 02/20/2024) Performed for Polyarthralgia, Numbness, Myalgia, multiple sites, Other low back pain, Cervicalgia, Other fatigue, Encounter for long-term (current) use of high- risk medication * HLA TYPING B27(Performed 02/20/2024) Performed for Polyarthralgia, Numbness, Myalgia, multiple sites, Other low back pain, Cervicalgia, Other fatigue, Encounter for long-term (current) use of high- risk medication * HEPATITIS SCREEN ACUTE ([facility])(Performed 02/20/2024) Performed for Polyarthralgia, Numbness, Myalgia, multiple sites, Other low back pain, Cervicalgia, Other fatigue, Encounter for long-term (current) use of high- risk medication * ERYTHROCYTE SEDIMENTATION RATE(Performed 02/20/2024) Performed for Polyarthralgia, Numbness, Myalgia, multiple sites, Other low back pain, Cervicalgia, Other fatigue, Encounter for long-term (current) use of high- risk medication * CYCLIC CITRULLINATED PEPTIDE([facility]P) AB IGG(Performed 02/20/2024) Performed for Polyarthralgia, Numbness, Myalgia, multiple sites, Other low back pain, Cervicalgia, Other fatigue, Encounter for long-term (current) use of high- risk medication * C-REACTIVE PROTEIN(Performed 02/20/2024) Performed for Polyarthralgia, Numbness, Myalgia, multiple sites, Other low back pain, Cervicalgia, Other fatigue, Encounter for long-term (current) use of high- risk medication * COMPLEMENT C4(Performed 02/20/2024) Performed for Polyarthralgia, Numbness, Myalgia, multiple sites, Other low back pain, Cervicalgia, Other fatigue, Encounter for long-term (current) use of high- risk medication * COMPLEMENT C3(Performed 02/20/2024) Performed for Polyarthralgia, Numbness, Myalgia, multiple sites, Other low back pain, Cervicalgia, Other fatigue, Encounter for long-term (current) use of high- risk medication * CK BLOOD(Performed 02/20/2024) Performed for Polyarthralgia, Numbness, Myalgia, multiple sites, Other low back pain, Cervicalgia, Other fatigue, Encounter for long-term (current) use of high- risk medication * ANGIOTENSIN CONVERTING ENZYME BLOOD(Performed 02/20/2024) Performed for Polyarthralgia, Numbness, Myalgia, multiple sites, Other low back pain, Cervicalgia, Other fatigue, Encounter for long-term (current) use of high- risk medication * ALDOLASE(Performed 02/20/2024) Performed for Polyarthralgia, Numbness, Myalgia, multiple sites, Other low back pain, Cervicalgia, Other fatigue, Encounter for long-term (current) use of high- risk medication * MERLIN PANEL COMPREHENSIVE(Performed 02/20/2024) Performed for Polyarthralgia, Numbness, Myalgia, multiple sites, Other low back pain, Cervicalgia, Other fatigue, Encounter for long-term (current) use of high- risk medication * ANCA VASCULITIS PANEL(Performed 02/20/2024) Performed for Polyarthralgia, Numbness, Myalgia, multiple sites, Other low back pain, Cervicalgia, Other fatigue, Encounter for long-term (current) use of high- risk medication * THIOPURINE METHYLTRANSFERASE(Performed 02/20/2024) Performed for Polyarthralgia, Numbness, Myalgia, multiple sites, Other low back pain, Cervicalgia, Other fatigue, Encounter for long-term (current) use of high- risk medication * IRON + TIBC PANEL(Performed 02/20/2024) Performed for Polyarthralgia, Numbness, Myalgia, multiple sites, Other low back pain, Cervicalgia, Other fatigue, Encounter for long-term (current) use of high- risk medication * COMPREHENSIVE METABOLIC PANEL(Performed 02/03/2024) * CBC W AUTO DIFFERENTIAL(Performed 02/03/2024) * URINALYSIS W/MICROSCOPIC NO CULTURE(Performed 02/03/2024) * CT RENAL STONE(Performed 02/03/2024) Performed for Flank pain * HCG URINE QUAL POCT NOTIFICATION(Performed 06/04/2019) * CT ABDOMEN PELVIS W CONTRAST(Performed 06/04/2019) Performed for Abdominal pain, right lower quadrant * URINALYSIS REFLEX MICROSCOPIC REFLEX CULTURE(Performed 06/04/2019) * HCG URINE QUALITATIVE - POCT (IP) INTERFACED(Performed 06/04/2019) * LIPASE BLOOD(Performed 06/04/2019) * COMPREHENSIVE METABOLIC PANEL(Performed 06/04/2019) * CBC W AUTO DIFFERENTIAL(Performed 06/04/2019) * VITAMIN B6(Performed 08/27/2016) Performed for Numbness * PROTEIN ELECTROPHORESIS BLOOD(Performed 08/27/2016) Performed for Numbness * IMMUNOFIXATION BLOOD(Performed 08/27/2016) Performed for Numbness * VITAMIN B12 FOLATE PANEL(Performed 08/27/2016) Performed for Numbness * TSH(Performed 08/27/2016) Performed for Numbness * RPR(Performed 08/27/2016) Performed for Numbness * C-REACTIVE PROTEIN(Performed 08/27/2016) Performed for Numbness * ERYTHROCYTE SEDIMENTATION RATE(Performed 08/27/2016) Performed for Numbness * IMAGING/RADIOLOGY/XRAY RESULTS ORDER(Performed 10/20/2009) * CHROMOSOME ANALYSIS AMNIOTIC FLUID(Performed 08/31/2009) Performed for Unspecified Complication of , Antepartum (HCC) * SONOGRAM - COMPLETE(Performed 08/31/2009) Results * XR HAND BILAT 2VW (02/20/2024 11:45 AM CDT) Anatomical Region Laterality Modality Wrist / Hand, Upper Extremity Ra diographic Imaging 02/20/2024 12:0 2 PM CDT Impressions 02/20/2024 12:05 PM CDT IMPRESSION: Normal hand radiographs. > Interpreting Provider: Darcy Alfaro MD on 02/20/2024 12:05 PM Narrative 02/20/2024 12:05 PM CDT PROCEDURE: ??XR HAND BILAT 2VW DATE/TIME OF EXAM: ??02/20/2024 11:46 AM CLINICAL INFORMATION: None relevant/not provided if blank. Indication: M25.50: Pain in unspecified joint R20.0: Anesthesia of skin M79.18: Myalgia, other site M54.59: Other low back pain M54.2: Cervicalgia R53.83: Other fatigue Z79.899: Other fci (current) 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 Additional History: COMPARISON: None. FINDINGS: There is no fracture. Alignment is normal. Joint spaces are normal. There is no appreciable soft tissue abnormality. There are no erosions. Procedure Note Darcy Alfaro MD - 02/20/2024 PROCEDURE: XR HAND BILAT 2VW DATE/TIME OF EXAM: 02/20/2024 11:46 AM CLINICAL INFORMATION: None relevant/not provided if blank. Indication: M25.50: Pain in unspecified joint R20.0: Anesthesia of skin M79.18: Myalgia, other site M54.59: Other low back pain M54.2: Cervicalgia R53.83: Other fatigue Z79.899: Other supervisor intermediates (current) 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 Additional History: COMPARISON: None. FINDINGS: There is no fracture. Alignment is normal. Joint spaces are normal. There is no appreciable soft tissue abnormality. There are no erosions. IMPRESSION: Normal hand radiographs. > Interpreting Provider: Darcy Alfaro MD on 02/20/2024 12:05 PM Nancy Cotto MD DIAGNOSTIC IMAGING O RDERABLES * XR SI JOINTS 3VW OR MORE (02/20/2024 11:45 AM CDT) Anatomical Region Laterality Modality Pelvis, Lower Extremity Radiogra phic Imaging 02/20/2024 12:0 0 PM CDT Impressions 02/20/2024 12:18 PM CDT IMPRESSION: 1. Radiographically normal sacroiliac joints. 2. Lumbar degenerative change. Edited by Olivia Salter on 02/20/2024 12:03 PM > Interpreting Provider: Darcy Alfaro MD on 02/20/2024 12:18 PM Narrative 02/20/2024 12:18 PM CDT PROCEDURE: ??XR SI JOINTS 3VW OR MORE, XR LUMBAR SPINE 2 OR 3VW DATE/TIME OF EXAM: ??02/20/2024 11:46 AM CLINICAL INFORMATION: None relevant/not provided if blank. Indication: M25.50: Pain in unspecified joint. R20.0: Anesthesia of skin. M79.18: Myalgia, other site. M54.59: Other low back pain. M54.2: Cervicalgia. R53.83: Other fatigue. Z79.899: Other supervisor intermediates (current) 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. Additional History: COMPARISON: None. FINDINGS: SACROILIAC JOINTS: The sacroiliac joints are radiographically normal. There is no ankylosis or sclerosis. There is no erosion or widening. LUMBAR SPINE: There is mild multilevel disc space narrowing. There is mid and lower lumbar facet arthritis. Alignment is normal with the exception of exaggerated kyphosis at the thoracolumbar junction. Vertebral body heights are normal. Procedure Note Darcy Alfaro MD - 02/20/2024 PROCEDURE: XR SI JOINTS 3VW OR MORE, XR LUMBAR SPINE 2 OR 3VW DATE/TIME OF EXAM: 02/20/2024 11:46 AM CLINICAL INFORMATION: None relevant/not provided if blank. Indication: M25.50: Pain in unspecified joint. R20.0: Anesthesia of skin. M79.18: Myalgia, other site. M54.59: Other low back pain. M54.2: Cervicalgia. R53.83: Other fatigue. Z79.899: Other fci (current) 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. Additional History: COMPARISON: None. FINDINGS: SACROILIAC JOINTS: The sacroiliac joints are radiographically normal. There is no ankylosisor sclerosis. There is no erosion or widening. LUMBAR SPINE: There is mild multilevel disc space narrowing. There is mid and lower lumbar facet arthritis. Alignment is normal with the exception of exaggerated kyphosis at the thoracolumbar junction. Vertebral bodyheights are normal. IMPRESSION: 1. Radiographically normal sacroiliac joints. 2. Lumbar degenerative change. Edited by Olivia Salter on 02/20/2024 12:03 PM > Interpreting Provider: Darcy Alfaro MD on 02/20/2024 12:18 PM Nancy Cotto MD DIAGNOSTIC IMAGING O RDERABLES * XR LUMBAR SPINE 2 OR 3VW (02/20/2024 11:45 AM CDT) Anatomical Region Laterality Modality Spine Radiographic Sweta ging 02/20/2024 12:0 0 PM CDT Impressions 02/20/2024 12:18 PM CDT IMPRESSION: 1. Radiographically normal sacroiliac joints. 2. Lumbar degenerative change. Edited by Olivia Salter on 02/20/2024 12:03 PM > Interpreting Provider: Darcy Alfaro MD on 02/20/2024 12:18 PM Narrative 02/20/2024 12:18 PM CDT PROCEDURE: ??XR SI JOINTS 3VW OR MORE, XR LUMBAR SPINE 2 OR 3VW DATE/TIME OF EXAM: ??02/20/2024 11:46 AM CLINICAL INFORMATION: None relevant/not provided if blank. Indication: M25.50: Pain in unspecified joint. R20.0: Anesthesia of skin. M79.18: Myalgia, other site. M54.59: Other low back pain. M54.2: Cervicalgia. R53.83: Other fatigue. Z79.899: Other fci (current) 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. Additional History: COMPARISON: None. FINDINGS: SACROILIAC JOINTS: The sacroiliac joints are radiographically normal. There is no ankylosis or sclerosis. There is no erosion or widening. LUMBAR SPINE: There is mild multilevel disc space narrowing. There is mid and lower lumbar facet arthritis. Alignment is normal with the exception of exaggerated kyphosis at the thoracolumbar junction. Vertebral body heights are normal. Procedure Note Darcy Alfaro MD - 02/20/2024 PROCEDURE: XR SI JOINTS 3VW OR MORE, XR LUMBAR SPINE 2 OR 3VW DATE/TIME OF EXAM: 02/20/2024 11:46 AM CLINICAL INFORMATION: None relevant/not provided if blank. Indication: M25.50: Pain in unspecified joint. R20.0: Anesthesia of skin. M79.18: Myalgia, other site. M54.59: Other low back pain. M54.2: Cervicalgia. R53.83: Other fatigue. Z79.899: Other supervisor intermediates (current) 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. Additional History: COMPARISON: None. FINDINGS: SACROILIAC JOINTS: The sacroiliac joints are radiographically normal. There is no ankylosisor sclerosis. There is no erosion or widening. LUMBAR SPINE: There is mild multilevel disc space narrowing. There is mid and lower lumbar facet arthritis. Alignment is normal with the exception of exaggerated kyphosis at the thoracolumbar junction. Vertebral bodyheights are normal. IMPRESSION: 1. Radiographically normal sacroiliac joints. 2. Lumbar degenerative change. Edited by Olivia Salter on 02/20/2024 12:03 PM > Interpreting Provider: Darcy Alfaro MD on 02/20/2024 12:18 PM Nancy Cotto MD DIAGNOSTIC IMAGING O RDERABLES * FERRITIN (02/20/2024 10:48 AM CDT) Ferritin 53 15 - 150 ng/mL [facility] INSURANCE BILL Blood BLOOD SPECIMEN / Unknown 02/20/2024 10:48 AM CDT 02/20/2024 Narrative Resulting Agency Comment Lab Testing performed at: [facility] [address] ??[facility] [phone] Nancy Cotto MD LAB - CHEMISTRY TOBY BILLY [facility] Organization Address City/State/ZIP Co de Phone Number [facility] INSURANCE BILL [address] [place] [address] * HEPATITIS SCREEN ACUTE ([facility]) (02/20/2024 10:47 AM CDT) Hepatitis A Virus Antibody IgM Negative Negative [facility] INSURANCE BILL Hepatitis B Virus Surface Antigen Negative Negative [facility] INSURANCE BILL Hepatitis B Core Virus Antibody IgM Negative Negative [facility] INSURANCE BILL Hepatitis C Antibody Non Reactive Non Reactive [facility] INSURANCE BILL Blood BLOOD SPECIMEN / Unknown 02/20/2024 10:47 AM CDT 02/20/2024 Narrative Resulting Agency Comment Lab Testing performed at: [facility] [address] ??[facility] [id number] Nancy Cotto MD LAB - CHEMISTRY TOBY BILLY [facility] INSURANCE BILL [address] [place] [address] * RHEUMATOID ARTHRITIS 14-3-3 ETA (02/20/2024 10:47 AM CDT) Pathologist [facility] 14.3.3 eta Protein <0.20 ng/mL [facility] INSURANCE BILL Comment: Reference Range: < 0.20 Comments: 14-3-3 eta protein is a joint-derived, proinflammatory retail merchandising specialist that is implicated in the joint erosion process and pathogenesis of RA. ??Serum 14-3-3 eta is elevated in both early and established RA. - Diagnostic value: ??14-3-3 eta is highly specific for RA. ??Serum 14-3-3 eta may be especially helpful in identifying ??patients with early RA where it provides a 15% incremental ??benefit to the diagnostic sensitivity of markers, ??Rheumatoid Arthritis (RA) Factor and Cyclic Citrullinated ??Peptide (CCP) Antibodies, i.e. An additional 15% of early ??RA patients may be detected by 14-3-3 eta (1). - Correlation with radiographic evidence of joint damage. ??Positive serum 14-3-3 eta levels are associated with ??higher rates of joint damage as measured by radiographic ??assessments (Sharp/van debra Heijde Score) (2). - Serum 14-3-3 eta levels above a threshold of 0.50 ng/ml ??identify RA patients who will have more rapid radiographic ??progression, even those who may be in SDAI remission (1). References: 1. Faustina Gold, et al. Serum levels of 14-3-3 eta protein ?? supplement C-reactive protein and rheumatoid arthritis- ?? associated antibodies to predict clinical and ?? radiographic outcomes in a ??prospective cohort of ?? patients with recent-onset inflammatory polyarthritis. ?? Arthritis Res Ther 2016;18:37 2. Rivas SOTO, et al. 14-3-3 eta is a novel retail merchandising specialist ?? associated with the pathogenesis of rheumatoid arthritis ?? and joint damage. Arthritis Res Ther 2014;16:R99. This test was developed and its performance characteristics determined by [facility]. It has not been cleared or approved by the Food and Drug Administration. Blood BLOOD SPECIMEN / Unknown 02/20/2024 10:47 AM CDT 02/20/2024 Narrative Resulting Agency Comment Lab Testing performed at: [facility] [address] [place] [address] ??[facility] [phone] Nancy Cotto MD LAB - CHEMISTRY ORDE WENCESLAO Performing Organization Address City/[facility] Co de Phone Number [facility] INSURANCE BILL [address] [place] [address] * INTERPRETATION REFLEXED (02/20/2024 10:47 AM CDT) Interpretation [facility] INSURANCE BILL Comment: Not infected with HCV unless early or acute infection is suspected (which may be delayed in an immunocompromised individual), or other evidence exists to indicate HCV infection. 02/20/2024 10:4 7 AM CDT 02/20/2024 Narrative Resulting Agency Comment Lab Testing performed at: [facility] [address] ??[facility] [phone] Nancy Cotto MD LAB - SEROLOGY ORDER ROLANDA Performing Organization Address City/[facility]/ZIP Co de Phone Number [facility] INSURANCE BILL [address] [place] [address] * (ABNORMAL) IMMUNOFIXATION BLOOD (02/20/2024 10:47 AM CDT) Only the most recent of2 resultswithin the time period is included. Immunofixation Result [facility] INSURANCE BILL Comment:No monoclonality det ected. IgG Quantitative 814 586 - 1,602 mg/dL [facility] INSURANCE BILL IgA Quantitative 429(H) 87 - 352 mg/dL [facility] INSURANCE BILL IgM Quantitative 112 26 - 217 mg/dL [facility] INSURANCE BILL Blood BLOOD SPECIMEN / Unknown 02/20/2024 10:47 AM CDT 02/20/2024 Narrative Resulting Agency Comment Lab Testing performed at: [facility] [address] ??[facility] [id number] Nancy Cotto MD LAB - CHEMISTRY TOBY BILLY [facility] INSURANCE BILL [address] [place] [address] * RHEUMATOID FACTOR BLOOD QUANTITATIVE (02/20/2024 10:47 AM CDT) Rheumatoid Factor <10.0 <14.0 IU/mL [facility] INSURANCE BILL Blood BLOOD SPECIMEN / Unknown 02/20/2024 10:47 AM CDT 02/20/2024 Narrative Resulting Agency Comment Lab Testing performed at: [facility] [address] ??[facility] [id number] Nancy Cotto MD LAB - CHEMISTRY TOBY BILLY [facility] INSURANCE BILL [address] [place] [address] * C-REACTIVE PROTEIN (02/20/2024 10:47 AM CDT) Only the most recent of2 resultswithin the time period is included. C-Reactive Protein <1 0 - 10 mg/L [facility] INSURANCE BILL Blood BLOOD SPECIMEN / Unknown 02/20/2024 10:47 AM CDT 02/20/2024 Narrative Resulting Agency Comment Lab Testing performed at: [facility] [address] ??[facility] [id number] Nancy Cotto MD LAB - CHEMISTRY TOBY BILLY [facility] INSURANCE BILL [address] [place] [address] * HLA TYPING B27 (02/20/2024 10:47 AM CDT) HLA-B27 Negative [facility] INSURANCE BILL Comment: HLA-B*27 Negative B27 allele interpretation for all loci based on IMGT/HLA database version 3.51.0 This test was developed and its performance characteristics determined by [facility]. ??It has not been cleared or approved by the Food and Drug Administration. [facility] CLIA ID Number [id number] This test was performed using Polymerase Chain Reaction (PCR) and Sequence Specific Oligonucleotide Probes (SSOP) technique. Sequence Based Typing (SBT) may be used as a supplemental method when necessary. If you have questions, please call [facility] customer service at or email at [email or web address] Blood BLOOD SPECIMEN / Unknown 02/20/2024 10:47 AM CDT 02/20/2024 Narrative Resulting Agency Comment Lab Testing performed at: [facility] 7967[facility] ??[facility] [id number] Nancy Cotot MD LAB - CHEMISTRY TOBY BILLY [facility] INSURANCE BILL [address] [place] [address] * ANGIOTENSIN CONVERTING ENZYME BLOOD (02/20/2024 10:47 AM CDT) Pathologist [facility] Angiotensin-Con verting Enzyme 77 14 - 82 U/L [facility] Blood BLOOD SPECIMEN / Unknown 02/20/2024 10:47 AM CDT 02/20/2024 Narrative Resulting Agency Comment Lab Testing performed at: [facility] [address] ??[facility] [id number] Nancy Cotto MD LAB - CHEMISTRY TOBY BILLY [facility] INSURANCE BILL [address] [place] [address] * ALDOLASE (02/20/2024 10:47 AM CDT) Pathologist [facility] Aldolase 6.9 3.3 - 10.3 U/L [facility] INSURANCE BILL Blood BLOOD SPECIMEN / Unknown 02/20/2024 10:47 AM CDT 02/20/2024 Narrative Resulting Agency Comment Lab Testing performed at: [facility] [address] ??[facility] [phone] Nancy Cotto MD LAB - CHEMISTRY TOBY BILLY Performing Organization Address City/[facility]/ZIP Co de Phone Number [facility] INSURANCE BILL [address] [place] [address] * CYCLIC CITRULLINATED PEPTIDE(CCP) AB IGG (02/20/2024 10:47 AM CDT) CCP Antibodies IgG/IgA <20 <20 Units [facility] INSURANCE BILL Comment: ? Negative: <20 ? Weak Positive: 20-39 ? Moderate Positive: 40-59 ??Strong Positive: >59 Blood BLOOD SPECIMEN / Unknown 02/20/2024 10:47 AM CDT 02/20/2024 Narrative Resulting Agency Comment Lab Testing performed at: [facility] [address] [place] [address] ??[facility] [id number] Nancy Cotto MD LAB - CHEMISTRY TOBY BILLY Performing Organization Address City/[facility]/ZIP Co de Phone Number [facility] INSURANCE BILL [address] [place] [address] * ERYTHROCYTE SEDIMENTATION RATE (02/20/2024 10:47 AM CDT) Only the most recent of2 resultswithin the time period is included. Erythrocyte Sedimentation Rate Westergren 10 0 - 32 mm/hr [facility] INSURANCE BILL Blood BLOOD SPECIMEN / Unknown 02/20/2024 10:47 AM CDT 02/20/2024 Narrative Resulting Agency Comment Lab Testing performed at: [facility] [address] [facility] ??[facility] [phone] Nancy Cotto MD LAB - HEMATOLOGY ORD ERABLES [facility] INSURANCE BILL [address] [place] [address] * COMPLEMENT C4 (02/20/2024 10:47 AM CDT) Complement C4 26 14 - 44 mg/dL [facility] INSURANCE BILL Blood BLOOD SPECIMEN / Unknown 02/20/2024 10:47 AM CDT 02/20/2024 Narrative Resulting Agency Comment Lab Testing performed at: [facility] [address] [place] [address] ??[facility] [phone] Nancy Cotto MD LAB - SEROLOGY ORDER ROLANDA Performing Organization Address City/[facility] Co de Phone Number [facility] INSURANCE BILL [address] [place] [address] * CK BLOOD (02/20/2024 10:47 AM CDT) CK 73 32 - 182 U/L [facility] INSURANCE BILL Blood BLOOD SPECIMEN / Unknown 02/20/2024 10:47 AM CDT 02/20/2024 Narrative Resulting Agency Comment Lab Testing performed [facility]: [facility] [address] ??[facility] [phone] Nancy Cotto MD LAB - CHEMISTRY ORDE RABLES Performing Organization Address City/[facility] Co de Phone Number [facility] INSURANCE BILL [address] [place] [address] * PROTEIN ELECTROPHORESIS BLOOD (02/20/2024 10:47 AM CDT) Only the most recent of2 resultswithin the time period is included. Protein Total 6.7 6.0 - 8.5 g/dL [facility] INSURANCE BILL Albumin 3.8 2.9 - 4.4 g/dL [facility] INSURANCE BILL Alpha-1 Globulin 0.2 0.0 - 0.4 g/dL [facility] INSURANCE BILL Vbzfg-7-Icstjixj 0.6 0.4 - 1.0 g/dL [facility] INSURANCE BILL Beta-Globulin 1.3 0.7 - 1.3 g/dL [facility] INSURANCE BILL Gamma Globulin 0.8 0.4 - 1.8 g/dL [facility] INSURANCE BILL M-Juan Antonio Not Observed Not Observed g/dL [facility] INSURANCE BILL Globulin Total 2.9 2.2 - 3.9 g/dL [facility] INSURANCE BILL Albumin/Globulin Ratio 1.3 0.7 - 1.7 [facility] INSURANCE BILL Please Note [facility] INSURANCE BILL Comment: Protein electrophoresis scan will follow via computer, mail, or esthetician/owner delivery. P E Interpretation, S [facility] INSURANCE BILL Comment: The SPE pattern appears unremarkable. Evidence of monoclonal protein is not apparent. Blood BLOOD SPECIMEN / Unknown 02/20/2024 10:47 AM CDT 02/20/2024 Narrative Resulting Agency Comment Lab Testing performed at: [facility] ??[facility] [phone] Nancy Cotto MD LAB - CHEMISTRY TOBY BILLY Performing Organization Address [facility] de Phone Number [facility] INSURANCE BILL [address] [place] [address] * (ABNORMAL) COMPLEMENT C3 (02/20/2024 10:47 AM CDT) Complement C3 187(H) 82 - 167 mg/dL [facility] INSURANCE BILL Blood BLOOD SPECIMEN / Unknown 02/20/2024 10:47 AM CDT 02/20/2024 Narrative Resulting Agency Comment Lab Testing performed at: [facility] [address] [place] [address] ??[facility] [phone] Nancy Cotto MD LAB - CHEMISTRY TOBY BILLY Performing Organization Address [facility] Co de Phone Number [facility] INSURANCE BILL [address] [place] [address] * MERLIN PANEL COMPREHENSIVE (02/20/2024 10:46 AM CDT) Anti-dsDNA Quantitative <1 0 - 9 IU/mL [facility] INSURANCE BILL Comment: ?Negative ?<5 ?Equivocal ??5 - 9 ?Positive ?>9 EXECUTIVE VICE PRESIDENT Antibody 0.2 0.0 - 0.9 AI [facility] INSURANCE BILL Tellez (AFTAB) Antibody <0.2 0.0 - 0.9 AI [facility] INSURANCE BILL Antiscleroderma-70 Antibody <0.2 0.0 - 0.9 AI [facility] INSURANCE BILL Sjogren's Antibodies (SSA) <0.2 0.0 - 0.9 AI [facility] INSURANCE BILL Sjogren's Antibodies (SSB) <0.2 0.0 - 0.9 AI [facility] INSURANCE BILL Antichromatin Antibodies <0.2 0.0 - 0.9 AI [facility] INSURANCE BILL Lorna-1 Antibody <0.2 0.0 - 0.9 AI [facility] INSURANCE BILL Centromere B Antibody <0.2 0.0 - 0.9 AI [facility] INSURANCE BILL See Below [facility] INSURANCE BILL Comment: Autoantibody ? Disease Association ?Condition ?Frequency ? --------- Antinuclear Antibody, ?SLE, mixed connective Direct (MERLIN-D) ? tissue diseases ? --------- dsDNA ?SLE ?40 - 60% ? --------- Chromatin ?Drug induced SLE ?90% ? SLE ?48 - 97% ? --------- SSA (Ro) ? SLE ?25 - 35% ? Sjogren's Syndrome ? 40 - 70% ? Lupus ? 100% ? --------- SSB (La) ? SLE ? 10% ? Sjogren's Syndrome ?30% ?--------- Sm (anti-Tellez) ?SLE ?15 - 30% ?--------- EXECUTIVE VICE PRESIDENT ?Mixed Connective Tissue ? Disease ? 95% (U1 nRNP, ?SLE ?30 - 50% anti-ribonucleoprotein) ??Polymyositis and/or ? Dermatomyositis ? 20% ? --------- Scl-70 (antiDNA ?Scleroderma (diffuse) ?20 - 35% topoisomerase) ? Crest ? 13% ? --------- Lorna-1 ? Polymyositis and/or ? Dermatomyositis ?20 - 40% ? --------- Centromere B ? Scleroderma - Crest ? variant ? 80% Blood BLOOD SPECIMEN / Unknown 02/20/2024 10:46 AM CDT 02/20/2024 Narrative Resulting Agency Comment Lab Testing performed at: [facility] [address] ??[facility] [phone] Nancy Cotto MD LAB - SEROLOGY ORDER ROLANDA [facility] INSURANCE BILL [address] [place] [address] * ANCA VASCULITIS PANEL (02/20/2024 10:46 AM CDT) Myeloperoxidase Antibody <0.2 0.0 - 0.9 units [facility] INSURANCE BILL Proteinase 3 Antibody <0.2 0.0 - 0.9 units [facility] INSURANCE BILL Cytoplasmic (C-ANCA) <1:20 Neg:<1:20 titer [facility] INSURANCE BILL p-ANCA Titer <1:20 Neg:<1:20 titer [facility] INSURANCE BILL Comment: The presence of positive fluorescence exhibiting P-ANCA or C-ANCA patterns alone is not specific for the diagnosis of Horacio's Granulomatosis (WG) or microscopic polyangiitis. Decisions about treatment should not be based solely on ANCA IFA results. ??The International ANCA Group Consensus recommends follow up testing of positive sera with both DE-3 and MPO-ANCA enzyme immunoassays. As many as 5% serum samples are positive only by EIA. Ref. AM J Clin Pathol 1999;111:507-513. Atypical p-ANCA Titer <1:20 Neg:<1:20 titer [facility] INSURANCE BILL Comment: The atypical pANCA pattern has been observed in a significant percentage of patients with ulcerative colitis, primary sclerosing cholangitis and autoimmune hepatitis. Blood BLOOD SPECIMEN / Unknown 02/20/2024 10:46 AM CDT 02/20/2024 Narrative Resulting Agency Comment Lab Testing performed at: [address] ??[facility] [phone] Nancy Cotto MD LAB - CHEMISTRY TOBY BILLY [facility] INSURANCE BILL [address] [place] [address] * THIOPURINE METHYLTRANSFERASE (02/20/2024 10:46 AM CDT) TPMT Activity 25.6 Units/mL RBC [facility] INSURANCE BILL Comment: Reference Range: Normal: 15.1 - 26.4 Heterozygous for low TPMT variant: 6.3 - 15.0 Homozygous for low TPMT variant: <6.3 Interpretation [facility] INSURANCE BILL Comment: The above results can be interpreted as Normal for red blood cell Thiopurine Methyltransferase activity. For patients having an intrinsic low level of TPMT, recent RBC transfusion can variably increase their assayed enzymatic activity depending on the amount and circulating half-life of the transfused red blood cells. This test was developed and its performance characteristics determined by [employer]. It has not been cleared or approved by the Food and Drug Administration. This case has been reviewed, approved, interpreted and electronically signed by Kodi Weldon, PhD, [facility]. Methodology [facility] INSURANCE BILL Comment: Enzymatic Endpoint/Liquid Chromatography - Tandem Mass Spectrometry (LC-MS/MS) Blood BLOOD SPECIMEN / Unknown 02/20/2024 10:46 AM CDT 02/20/2024 Narrative Resulting Agency Comment Lab Testing performed at: [facility] [address] [place] [address] ??[facility] [phone] Nancy Cotto MD LAB - CHEMISTRY TOBY BILLY Performing Organization Address City/[facility]/ZIP Co de Phone Number [facility] INSURANCE BILL [address] [place] [address] * IRON + TIBC PANEL (02/20/2024 10:46 AM CDT) TIBC 391 250 - 450 ug/dL [facility] INSURANCE BILL UIBC 325 131 - 425 ug/dL [facility] INSURANCE BILL Iron 66 27 - 159 ug/dL [facility] INSURANCE BILL Iron Saturation 17 15 - 55 % [facility] INSURANCE BILL Blood BLOOD SPECIMEN / Unknown 02/20/2024 10:46 AM CDT 02/20/2024 Narrative Resulting Agency Comment Lab Testing performed at: [employer] [address] ??[facility] [phone] Nancy Cotto MD LAB - CHEMISTRY TOBY BILLY Performing Organization Address City/[facility]/ZIP Co de Phone Number [facility] INSURANCE BILL [address] [place] [address] * CBC W AUTO DIFFERENTIAL (02/03/2024 1:03 AM CDT) Only the most recent of2 resultswithin the time period is included. WBC 7.8 4.0 - 10.7 x10E9/L 02/03/2024 1:27 AM [facility] RBC Count 5.03 3.90 - 5.20 x10E12/L 02/03/2024 1:27 AM [facility] Hemoglobin 15.3 11.9 - 15.8 g/dL 02/03/2024 1:27 AM [facility] Hematocrit 42.7 34.8 - 46.1 % 02/03/2024 1:27 AM [facility] MCV 84.9 80.0 - 98.0 fL 02/03/2024 1:27 AM [facility] MCH 30.4 26.7 - 33.6 pg 02/03/2024 1:27 AM [facility] MCHC 35.8 31.7 - 36.3 g/dL 02/03/2024 1:27 AM [facility] RDW-CV 11.7 11.3 - 14.8 % 02/03/2024 1:27 AM [facility] Platelet Count 273 150 - 420 x10E9/L 02/03/2024 1:27 AM [facility] MPV 9.4 7.8 - 11.4 fL 02/03/2024 1:27 AM [facility] Neutrophil % 61.8 41.0 - 74.0 % 02/03/2024 1:27 AM [facility] Lymphocyte % 28.0 17.0 - 47.0 % 02/03/2024 1:27 AM [facility] Monocyte % 7.7 3.0 - 11.0 % 02/03/2024 1:27 AM [facility] Eosinophil % 2.0 0.0 - 7.0 % 02/03/2024 1:27 AM [facility] Basophil % 0.4 0.0 - 1.6 % 02/03/2024 1:27 AM [facility] Immature Granulocytes % 0.1 0.0 - 1.0 % 02/03/2024 1:27 AM [facility] Neutrophil Absolute 4.84 1.60 - 7.50 x10E9/L 02/03/2024 1:27 AM [facility] Lymphocyte Absolute 2.19 1.00 - 4.40 x10E9/L 02/03/2024 1:27 AM [facility] Monocyte Absolute 0.60 0.15 - 1.00 x10E9/L 02/03/2024 1:27 AM [facility] Eosinophil Absolute 0.16 0.00 - 0.60 x10E9/L 02/03/2024 1:27 AM [facility] Basophil Absolute 0.03 0.00 - 0.13 x10E9/L 02/03/2024 1:27 AM [facility] Blood BLOOD SPECIMEN / Unknown Venipuncture / Unknown 02/03/2024 1:03 AM CDT 02/03/2024 1:17 AM T Kaylee Reyes MD LAB - HEMATOLOGY ORD ERABLES [facility] [address] [place] [address], [facility] [phone] * (ABNORMAL) COMPREHENSIVE METABOLIC PANEL (02/03/2024 1:03 AM T) Only the most recent of2 resultswithin the time period is included. BUN 9 7 - 26 mg/dL 02/03/2024 1:45 AM [facility] Creatinine 0.64 0.56 - 0.96 mg/dL 02/03/2024 1:45 AM [facility] Sodium 139 136 - 145 mmol/L 02/03/2024 1:45 AM [facility] Potassium 3.4(L) 3.5 - 4.5 mmol/L 02/03/2024 1:45 AM [facility] Chloride 107 98 - 107 mmol/L 02/03/2024 1:45 AM [facility] CO2 21(L) 22 - 29 mmol/L 02/03/2024 1:45 AM [facility] Glucose 78 70 - 115 mg/dL 02/03/2024 1:45 AM [facility] Calcium 9.9 8.4 - 10.2 mg/dL 02/03/2024 1:45 AM [facility] Protein Total 7.7 6.0 - 8.3 g/dL 02/03/2024 1:45 AM [facility] Albumin 4.4 3.4 - 5.0 g/dL 02/03/2024 1:45 AM [facility] Bilirubin Total 0.4 0.2 - 1.2 mg/dL 02/03/2024 1:45 AM [facility] Alkaline Phosphatase 81 40 - 150 U/L 02/03/2024 1:45 AM [facility] ALT 58(H) 5 - 55 U/L 02/03/2024 1:45 AM [facility] AST 33 5 - 34 U/L 02/03/2024 1:45 AM [facility] Anion Gap 11 6 - 16 02/03/2024 1:45 AM [facility] BUN/Creatinine Ratio 14 7 - 23 02/03/2024 1:45 AM [facility] Osmolality Calculated 286 275 - 295 mOsm/kg 02/03/2024 1:45 AM [facility] Albumin/Globulin Ratio 1.3 1.1 - 2.3 02/03/2024 1:45 AM [facility] eGFR by CKD-EPI >90 >=90 mL/min/1.7 3 m2 02/03/2024 1:45 AM [facility] Blood BLOOD SPECIMEN / Unknown Venipuncture / Unknown 02/03/2024 1:03 AM CDT 02/03/2024 1:17 AM T Kaylee Reyes MD LAB - CHEMISTRY TOBY [facility] Organization Address City/State/[facility] Co de Phone Number [facility] [address] [place] [address], [facility] [phone] * (ABNORMAL) URINALYSIS W/MICROSCOPIC NO CULTURE (02/03/2024 12:57 AM T) Color UA Yellow Straw, Yellow 02/03/2024 1:40 AM [facility] Clarity UA t Cloudy(A) Clear 02/03/2024 1:40 AM [facility] Specific Belden UA 1.020 1.005 - 1.030 02/03/2024 1:40 AM [facility] pH UA 5.0 5.0 - 8.0 pH 02/03/2024 1:40 AM [facility] Protein UA Negative Negative 02/03/2024 1:40 AM [facility] Glucose UA Negative Negative 02/03/2024 1:40 AM [facility] Ketone UA Negative Negative 02/03/2024 1:40 AM [facility] Bilirubin UA Negative Negative 02/03/2024 1:40 AM [facility] Blood UA Negative Negative 02/03/2024 1:40 AM [facility] Nitrite UA Negative Negative 02/03/2024 1:40 AM [facility] Leukocyte Esterase Negative Negative 02/03/2024 1:40 AM [facility] Urobilinogen UA Negative Negative mg/dL 02/03/2024 1:40 AM [facility] RBC UA 6-10(A) None Seen, 0-2, 3-5 /HPF 02/03/2024 1:40 AM [facility] WBC UA 0-5 None Seen, 0-5 /HPF 02/03/2024 1:40 AM [facility] Squamous Epithelial Cells UA 6-10(A) None Seen, 0-2, 3-5 /HPF 02/03/2024 1:40 AM [facility] Mucus UA 2+ /LPF 02/03/2024 1:40 AM [facility] Urine URINE SPECIMEN OBTAINED BY CLEAN CATCH PROCEDURE / Unknown Collection / Unknown 02/03/2024 12:57 AM CDT 02/03/2024 1:13 AM [facility] - 02/03/2024 1:40 AM T Kaylee Reyes MD LAB - URINALYSIS ORD ERABLES [facility] [address] [place] [address], [facility] [phone] * CT RENAL STONE (02/03/2024 12:19 AM CDT) Anatomical Region Laterality Modality Abdomen Computed Tomogra phy 02/03/2024 1:57 AM CDT Impressions 02/03/2024 10:15 AM CDT Impression: 1.A 2 mm radiopaque shadows noted in the retroperitoneum adjacent to the course of the right ureter (image 99 series 1). Another small calcification is noted immediately inferior to the larger one. This could be small phleboliths; however, correlation with clinical data is suggested to exclude small ureteric stones. 2.No renal stones seen. 3.No acute process in the abdomen or pelvis. > Dictated by Samy Johnson MD, PhD (presidential helicopter crew chief). I, Haylee Lopez MD have personally reviewed and interpreted this examination/study. > Interpreting Provider: Haylee Lopez MD on 02/03/2024 10:15 AM Narrative 02/03/2024 10:15 AM CDT PROCEDURE: ??CT RENAL STONE, DATE/TIME OF EXAM: ??02/03/2024 12:19 AM, LOCATION ??[facility] INDICATION: R10.9: Flank pain ADDITIONAL CLINICAL INFORMATION: Ordering Provider Reason For Exam: ??r/o stone/ Technologist Note: Additional: COMPARISON: None. TECHNIQUE: CT of the abdomen and pelvis was performed without contrast according to renal stone protocol. MIP reformats were produced. Findings: Evaluation of visceral and vascular structures is degraded due to lack of intravenous contrast administration. Lower Chest: Normal. Liver: Hepatomegaly with diffuse fatty change in the liver. Gallbladder and Bile Ducts: The gallbladder is absent. Spleen: Normal. Pancreas: Normal. Adrenals: Normal. Right Genitourinary Kidney: No calculi. Ureter: A 2 mm radiopaque shadows noted in the retroperitoneum adjacent to the course of the right ureter (image 99 series 1). A small calcification is noted immediately inferior to the larger one. This could be small phleboliths; however, correlation with clinical data is suggested to exclude small ureteric stones. Obstruction/Hydronephrosis: None. Left Genitourinary Kidney: No calculi. Ureter: No calculi. Obstruction/Hydronephrosis: None. Urinary Bladder: Bladder decompressed limiting evaluation. No calculi. Gastrointestinal: The stomach and visualized loops of small bowel are unremarkable. Colonic diverticulosis without evidence of diverticulitis is seen. Normal appendix. Mesentery/Peritoneum/Retroperitoneum: Normal. Reproductive Organs: The uterus is not seen. Vasculature: No vascular abnormality is present. Bones: Bone windows demonstrate no suspicious lytic or blastic lesions. The visible osseous structures are intact. Degenerative changes are seen in the spine. Soft tissues: Normal. Procedure Note Haylee Lopez MD - 02/03/2024 PROCEDURE: CT RENAL STONE, DATE/TIME OF EXAM: 02/03/2024 12:19 AM, LOCATION [facility] INDICATION: R10.9: Flank pain ADDITIONAL CLINICAL INFORMATION: Ordering Provider Reason For Exam: r/o stone/ Technologist Note: Additional: COMPARISON: None. TECHNIQUE: CT of the abdomen and pelvis was performed without contrast according to renal stone protocol. MIP reformats were produced. Findings: Evaluation of visceral and vascular structures is degraded due to lackof intravenous contrast administration. Lower Chest: Normal. Liver: Hepatomegaly with diffuse fatty change in the liver. Gallbladder and Bile Ducts: The gallbladder is absent. Spleen: Normal. Pancreas: Normal. Adrenals: Normal. Right Genitourinary Kidney: No calculi. Ureter: A 2 mm radiopaque shadows noted in the retroperitoneum adjacentto the course of the right ureter (image 99 series 1). A smallcalcification is noted immediately inferior to the larger one. This could be small phleboliths; however, correlation with clinical data is suggested to exclude small ureteric stones. Obstruction/Hydronephrosis: None. Left Genitourinary Kidney: No calculi. Ureter: No calculi. Obstruction/Hydronephrosis: None. Urinary Bladder: Bladder decompressed limiting evaluation. No calculi. Gastrointestinal: The stomach and visualized loops of small bowel are unremarkable.Colonic diverticulosis without evidence of diverticulitis is seen. Normalappendix. Mesentery/Peritoneum/Retroperitoneum: Normal. Reproductive Organs: The uterus is not seen. Vasculature: No vascular abnormality is present. Bones: Bone windows demonstrate no suspicious lytic or blastic lesions. The visible osseous structures are intact. Degenerative changes are seen inthe spine. Soft tissues: Normal. Impression: 1.A 2 mm radiopaque shadows noted in the retroperitoneum adjacent to the course of the right ureter (image 99 series 1). Another smallcalcification is noted immediately inferior to the larger one. This could be small phleboliths; however, correlation with clinical data is suggested to exclude small ureteric stones. 2.No renal stones seen. 3.No acute process in the abdomen or pelvis. > Dictated by Samy Johnson MD, PhD (presidential helicopter crew chief). I, Haylee Lopez MD have personally reviewed and interpreted this examination/study. > Interpreting Provider: Haylee Lopez MD on 410:15 AM Kaylee Reyes MD CT ORDERABLES * HCG URINE QUAL POCT NOTIFICATION (06/04/2019 1:02 PM CDT) Comment Notification Label Only - See Separate Report 06/04/2019 1:02 PM CDT [facility] Urine URINE / Unknown 11:47 AM CDT Tarun Garcia MD LAB - URINALYSIS OR DERABLES [facility] [address] [place] [address] * CT ABDOMEN AND PELVIS WITH IV CONTRAST (06/04/2019 12:56 PM CDT) Anatomical Region Laterality Modality Abdomen, Pelvis Computed Tomogra phy 06/04/2019 1:02 PM CDT Impressions 06/04/2019 1:11 PM CDT Bilateral ovarian cysts which may be mildly complicated with the largest measuring approximately 1.8 cm and are probably incidental. No acute changes are seen. Reading Radiologist: Laurie Rendon MD on 06/04/2019 at 1:11 PM Narrative 06/04/2019 1:11 PM CDT Examination: CT abdomen and pelvis with contrast HISTORY: Right lower quadrant abdominal pain There are no prior studies available for comparison. Patient was injected with 1 cc of Isovue-370 IV. Lung bases and lower mediastinal structures appear be unremarkable. Liver demonstrates no mass or biliary dilatation. The spleen, gallbladder, pancreas and adrenal glands are unremarkable. The kidneys demonstrate no mass, hydronephrosis or calculi. The visualized GI structures demonstrates no obstruction. No inflammatory changes are seen. The appendix is visualized and appears to be unremarkable. The bladder is unremarkable. Patient is status post hysterectomy. Small bilateral ovarian cysts noted with the larger cyst measuring approximately 1.8 cm on the right and may be mildly complicated. Procedure Note Valentin Rendon MD - 06/04/2019 Examination: CT abdomen and pelvis with contrast HISTORY: Right lower quadrant abdominal pain There are no prior studies available for comparison. Patient was injected with 1 cc of Isovue-370 IV. Lung bases and lower mediastinal structures appear be unremarkable. Liver demonstrates no mass or biliary dilatation. The spleen, gallbladder, pancreas and adrenal glands are unremarkable. The kidneys demonstrate no mass, hydronephrosis or calculi. The visualized GI structures demonstrates no obstruction. No inflammatory changes are seen. The appendix is visualized and appears to be unremarkable. The bladder is unremarkable. Patient is status post hysterectomy. Small bilateral ovarian cysts noted with the larger cyst measuring approximately 1.8 cm on the right and may be mildly complicated. IMPRESSION Bilateral ovarian cysts which may be mildly complicated with the largest measuring approximately 1.8 cm and are probably incidental. No acute changes are seen. Reading Radiologist: Laurie Rendon MD on 06/04/2019 at 1:11 PM Luna Durant [employer] CT ORDERABLES * URINALYSIS REFLEX MICROSCOPIC REFLEX CULTURE (06/04/2019 12:07 PM CDT) Color UA Straw Straw, Yellow 06/04/2019 12:14 PM [facility] Clarity UA Clear Clear 06/04/2019 12:14 PM CDT [facility] Glucose UA Negative Negative 06/04/2019 12:14 PM CDT [facility] Bilirubin UA Negative Negative 06/04/2019 12:14 PM CDT [facility] Ketone UA Negative Negative 06/04/2019 12:14 [facility] Specific Belden UA 1.006 1.005 - 1.030 06/04/2019 12:14 PM CDT [facility] Blood UA Negative Negative 06/04/2019 12:14 PM CDT [facility] pH UA 7.0 5.0 - 8.0 pH 06/04/2019 12:14 PM CDT [facility] Protein UA Negative Negative 06/04/2019 12:14 PM CDT [facility] Urobilinogen UA Negative Negative mg/dL 06/04/2019 12:14 PM CDT [facility] Nitrite UA Negative Negative 06/04/2019 12:14 PM CDT [facility] Leukocyte UA Negative Negative 06/04/2019 12:14 PM CDT [facility] Urine Microscopy Urine microscopy not indicated 06/04/2019 12:14 PM CDT [facility] Reflex Status Culture not indicated 06/04/2019 12:14 PM CDT [facility] Urine URINE SPECIMEN OBTAINED BY CLEAN CATCH PROCEDURE / Unknown Collection / Unknown 06/04/2019 12:07 PM CDT 06/04/2019 12:09 PM CDT Narrative [facility] - 06/04/2019 12:14 PM CDT Tarun Garcia MD LAB - URINALYSIS OR DERABLES [facility] [address] [place] [address] * HCG URINE QUALITATIVE - POCT (IP) INTERFACED (06/04/2019 12:06 PM CDT) HCG Qual Urine Negative Negative 06/04/2019 12:12 PM CDT [facility] Urine URINE / Unknown 06/04/2019 1 2:06 PM CDT 06/04/2019 12:12 PM CDT Provider Unknown LAB - POINT OF CARE ORDERABLES [facility] [facility] [address] [place] [address] * LIPASE BLOOD (06/04/2019 11:56 AM CDT) Lipase 29 8 - 78 U/L 06/04/2019 12:59 PM CDT [facility] Blood BLOOD SPECIMEN / Unknown Venipuncture / Unknown 06/04/2019 11:56 AM CDT 06/04/2019 12:06 PM CDT Luna Durant [employer] LAB - CHEMISTRY O RDERABLES [facility] [address] [place] [address] * RPR (08/27/2016 3:46 PM BRANCH LENDING MANAGER) RPR Non Reactive Non Reactive [facility] ACCOUNT BILL Blood BLOOD SPECIMEN / Unknown 08/27/2016 3:46 PM BRANCH LENDING MANAGER 08/27/2016 Narrative Resulting Agency Comment [facility] [address] [address] ??Diony GOULD [phone] Albert Hutchinson MD LAB - CHEMISTRY TOBY BILLY Performing Organization Address City/[facility]/ZIP Co de Phone Number [facility] ACCOUNT BILL [address] [place] [address] * VITAMIN B6 (08/27/2016 3:46 PM BRANCH LENDING MANAGER) Vitamin B6 14.9 2.0 - 32.8 ug/L [facility] ACCOUNT BILL Blood BLOOD SPECIMEN / Unknown 08/27/2016 3:46 PM BRANCH LENDING MANAGER 08/27/2016 Narrative Resulting Agency Comment [facility] [address] ??[facility] [phone] Albert Hutchinson MD LAB - CHEMISTRY TOBY BILLY Performing Organization Address [facility] Co de Phone Number [facility] ACCOUNT BILL [address] [place] [address] * VITAMIN B12 FOLATE PANEL (08/27/2016 3:46 PM BRANCH LENDING MANAGER) Vitamin B12 879 211 - 911 pg/mL [facility] ACCOUNT BILL Folate 13.6 3.1 - 17.5 ng/mL [facility] ACCOUNT BILL Blood BLOOD SPECIMEN / Unknown 08/27/2016 3:46 PM BRANCH LENDING MANAGER 08/27/2016 Narrative Resulting Agency Comment [facility] [address] [address] ??Diony GOULD [phone] Albert Hutchinson MD LAB - CHEMISTRY TOBY BILLY [facility] ACCOUNT BILL [address] [place] [address] * (ABNORMAL) TSH (08/27/2016 3:46 PM BRANCH LENDING MANAGER) TSH 0.280(L) 0.358 - 3.740 uIU/mL [facility] ACCOUNT BILL Blood BLOOD SPECIMEN / Unknown 08/27/2016 3:46 PM BRANCH LENDING MANAGER 08/27/2016 Narrative Resulting Agency Comment [facility] [address] [facility] ??[facility] [phone] Albert Hutchinson MD LAB - CHEMISTRY TOBY BILLY [facility] ACCOUNT BILL [address] [address] * IMAGING/RADIOLOGY/XRAY RESULTS ORDER (10/20/2009 6:02 AM BRANCH LENDING MANAGER) Anatomical Region Laterality Modality Other Narrative 10/20/2009 6:02 AM BRANCH LENDING MANAGER Ordered by an unspecified provider. Transcriptions Document, Scanned - 09/20/2009 12:00 AM BRANCH LENDING MANAGER Scanned Document IMAGING * CHROMOSOME ANALYSIS AMNIO PANEL (08/31/2009 12:00 PM BRANCH LENDING MANAGER) Chromosome Analysis Amniotic Fluid See Scanned Report [facility] Comment Amniotic Fluid [facility] AMNIOTIC FLUID SPECIMEN / Unknown 08/31/2009 12:00 PM BRANCH LENDING MANAGER 08/31/2009 12:40 PM BRANCH LENDING MANAGER Arvin Anderson MD LAB - PATHOLOGY/CYTO LOGY ORDERABLES [facility] [address] [place] [address] Care Teams Marriage Performer Relationship Specialty Start Date End Date Damian Sadler MD PCP - General Internal Medicine 07/04/16
--- OUTSIDE RECORDS SUMMARY | 2024-08-17 01:52 | XMS_ITS | Encounter Summary ---
Author Organization [facility] Address [address] [place] [address] Care Team Providers Care Insole Doubler Name Role Phone Damian Sadler MD Primary Care Provider [phone] Reason for Visit * Reason Comments Polyarthralgia Encounter Details Date Type Department Care Team (Late st Contact Info) Description 02/20/2024 9:20 AM CDT Office Visit [facility] - Rheumatology [address], [address] [place] [address] [place] [address] [place] [address] [address] [place] [address] Polyarthralgia (Primary Dx); Numbness; Myalgia, multiple sites; Other low back pain; Cervicalgia; Other fatigue; Encounter for long-term (current) use of high-risk medication Social History Tobacco Use Types Packs/Day Years [...] Pulse 86 02/20/2024 9:18 AM CDT Temperature - - Respiratory Rate 16 02/20/2024 9:18 AM CDT Oxygen Saturation 97% 02/20/2024 9:18 AM CDT Inhaled Oxygen Concentration - - Weight 81.6 kg (180 lb) 02/20/2024 9:18 AM CDT Height 160 cm (5' 3 ) 02/20/2024 9:18 AM CDT Body Mass Index 31.89 02/20/2024 9:18 AM CDT documented in this encounter Patient Instructions * Patient Instructions* Nancy Cotto MD - 02/20/2024 9:32 AM CDT Please contact your primary care physician regarding blood pressure. Please go to the emergency room if you develop chest pain shortness of breath severe headache, dizziness, vision issues, one-sided weakness. Labs and x-rays today Please read information on osteoarthritis, rheumatoid arthritis lupus psoriatic arthritis hydroxychloroquine methotrexate azathioprine. Please quit smoking and talk to your PCP regarding help. We will call you with the lab results in about 3-4 weeks. Please call us if you do not hear from usin a month. documented in this encounter Progress Notes * Nancy Cotto MD - 02/24/2024 11:11 PM CDT Initial Rheumatology Office Note Date of Visit: February 20, 2024 Patient's Primary Care Physician: Damian Sadler MD Referring physician: PCP Chief Complaint/History of Present Illness Subjective Renee Luke is a 43 year old female here sent by PCP regarding joint pains Long history of chronic low back pain worse with activity for which she sees pain management and has had steroid injections. Recently having more muscle pain joint pain weakness. She saw a hand surgeon for decreased strength and rn urgent care of the hands. Has noticed some swelling of the small joints of the hands feet and wrists. She had some nodules on the hands and the wrist which went away after trauma. She was told by her mother that her father also had these nodules which would disappear after hitby a book She is chronic pain and has not worked for a while. Takes Flexeril. Previously she took gabapentin and Lyrica. She was given prednisone few times which seemed to help joint pains. Morning stiffness is for 1 hour Family history is positive for mother with psoriasis history of DVT pulmonary embolism stroke No miscarriages She smokes cigarettes, advised to quit, no alcohol Previous Report(s) Reviewed: I reviewed patient's past medical history, past surgical history,family history,allergies, social history, OBGYN history in females in [facility]. They are noted as follows. Past Medical History: Diagnosis Date Hypertension Kidney stones Migraine headache pressure Tension headache Past Surgical History: Procedure Laterality Date Section Section Section Cholecystectomy ELBOW PROCEDURE/SURGERY Left 2 SCREWS Hysterectomy Right Family History Problem Relation Name Age of Onset Hypertension Mother Hypertension Father Allergies Allergen Reactions Tramadol Urticaria Hydralazine Vomiting Toradol [Ketorolac] Itching Social History Socioeconomic History Marital status: Spouse name: MANSI Number of children: 3 Years of education: Not on file Highest education level: Not on file Occupational History 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 Review of Systems Positive for joint pain swelling morning stiffness neck pain midback pain low back pain muscle weakness muscle pain fatigue headaches numbness blood in the urine. Negative for fever more than 101 deafness sudden blindness dry eyes dry mouth multiple mucosal ulcers malar rash Raynaud's phenomena seizures anxiety depression blood in the stool dysphagia diabetes thyroid parathyroid problems shortness of breath hemoptysis Objective Objective: BP 172/92 Pulse 86 Resp 16 Ht 1.6 m (5' 3 ) Wt 81.6 kg (180 lb) SpO2 97% GENERAL: no distress , overweight HEENT: No obvious abnormality or lesion SKIN: No rash or vasculitic lesion visible NEURO: nonfocal examination PSYCH: alert and oriented into 3 EXTREMITIES: no edema clubbing or cyanosis MUSCULOSKELETAL: Mild tenderness over multiple small joints of the hands. Hard to evaluate for synovitis due to her weight Lab Review Recent Labs Component Name 02/03/24 0103 WBC 7.8 Recent Labs Component Name 02/03/24 0103 06/04/19 1156 WBC 7.8 10.3 HGB 15.3 14.7 HCT 42.7 41.4 PLTCOUNT 273 317 Neutrophil Absolute Date Value Ref Range Status 02/03/2024 4.84 1.60 - 7.50 x10E9/L Final Recent Labs Component Name 02/20/24 1047 02/03/24 0103 06/04/19 1156 SODIUM - - 142 POTASSIUM - 3.4* 3.9 CHLORIDE - - 108* CO2 - 21* 23 BUN - 9 10 CREATININE - 0.64 0.72 CALCIUM - 9.9 9.9 ALBUMIN 3.8 - 4.4 ALT - 58* 25 AST - 33 16 GLUCOSE - 78 75 Recent Labs Component Name 02/03/24 0103 06/04/19 1156 SODIUM - 142 POTASSIUM 3.4* 3.9 CHLORIDE - 108* CO2 21* 23 BUN 9 10 CREATININE 0.64 0.72 EGFR >90 >60 GLUCOSE 78 75 CALCIUM 9.9 9.9 Assessment Assessment: Polyarthralgia - Plan: ALDOLASE, ANGIOTENSIN CONVERTING ENZYME BLOOD, CK BLOOD, COMPLEMENT C3, COMPLEMENT C4, C-REACTIVE PROTEIN, CYCLIC CITRULLINATED PEPTIDE([facility]) AB IGG, ERYTHROCYTE SEDIMENTATION RATE, HEPATITIS SCREEN ACUTE ([facility]), HLA TYPING B27, IMMUNOFIXATION BLOOD, RHEUMATOID ARTHRITIS 14-3-3 ETA, PROTEIN ELECTROPHORESIS BLOOD, RHEUMATOID FACTOR BLOOD QUANTITATIVE, XR HAND BILAT 2VW, XRLUMBAR SPINE 2 OR 3VW, XR SI JOINTS 3VW OR MORE, FERRITIN, IRON + TIBC PANEL, THIOPURINE METHYLTRANSFERASE, ANCA VASCULITIS PANEL, MERLIN PANEL COMPREHENSIVE, INTERPRETATION REFLEXED Numbness - Plan: ALDOLASE, ANGIOTENSIN CONVERTING ENZYME BLOOD, CK BLOOD, COMPLEMENT C3, COMPLEMENTC4, C-REACTIVE PROTEIN, CYCLIC CITRULLINATED PEPTIDE([facility]) AB IGG, ERYTHROCYTE SEDIMENTATION RATE, HEPATITIS SCREEN ACUTE ([facility]), HLA TYPING B27, IMMUNOFIXATION BLOOD, RHEUMATOID ARTHRITIS 14-3-3 ET A, PROTEIN ELECTROPHORESIS BLOOD, RHEUMATOID FACTOR BLOOD QUANTITATIVE, XR HAND BILAT 2VW, XR LUMBAR SPINE 2 OR 3VW, XR SI JOINTS 3VW OR MORE, FERRITIN, IRON + TIBC PANEL, THIOPURINE METHYLTRANSFERASE, ANCA VASCULITIS PANEL, MERLIN PANEL COMPREHENSIVE, INTERPRETATION REFLEXED Myalgia, multiple sites - Plan: ALDOLASE, ANGIOTENSIN CONVERTING ENZYME BLOOD, CK BLOOD, COMPLEMENTC3, COMPLEMENT C4, C-REACTIVE PROTEIN, CYCLIC CITRULLINATED PEPTIDE([facility]) AB IGG, ERYTHROCYTE SEDIMENTATION RATE, HEPATITIS SCREEN ACUTE ([facility]), HLA TYPING B27, IMMUNOFIXATION BLOOD, RHEUMATOID ARTHRITIS 14-3-3 ETA, PROTEIN ELECTROPHORESIS BLOOD, RHEUMATOID FACTOR BLOOD QUANTITATIVE, XR HAND BILAT 2VW, XR LUMBAR SPINE 2 OR 3VW, XR SI JOINTS 3VW OR MORE, FERRITIN, IRON + TIBC PANEL, THIOPURINE METHYLTRANSFERASE, ANCA VASCULITIS PANEL, MERLIN PANEL COMPREHENSIVE, INTERPRETATION REFLEXED Other low back pain - Plan: ALDOLASE, ANGIOTENSIN CONVERTING ENZYME BLOOD, CK BLOOD, COMPLEMENT C3,COMPLEMENT C4, C-REACTIVE PROTEIN, CYCLIC CITRULLINATED PEPTIDE([facility]) AB IGG, ERYTHROCYTE SEDIMENTATION RATE, HEPATITIS SCREEN ACUTE ([facility]), HLA TYPING B27, IMMUNOFIXATION BLOOD, RHEUMATOID ARTHRITIS 14-3-3 ETA, PROTEIN ELECTROPHORESIS BLOOD, RHEUMATOID FACTOR BLOOD QUANTITATIVE, XR HAND BILAT 2VW, XR LUMBAR SPINE 2 OR 3VW, XR SI JOINTS 3VW OR MORE, FERRITIN, IRON + TIBC PANEL, THIOPURINE METHYLTRANSFERASE, ANCA VASCULITIS PANEL, MERLIN PANEL COMPREHENSIVE, INTERPRETATION REFLEXED Cervicalgia - Plan: ALDOLASE, ANGIOTENSIN CONVERTING ENZYME BLOOD, CK BLOOD, COMPLEMENT C3, COMPLEMENT C4, C-REACTIVE PROTEIN, CYCLIC CITRULLINATED PEPTIDE([facility]) AB IGG, ERYTHROCYTE SEDIMENTATION RATE, HEPATITIS SCREEN ACUTE ([facility]), HLA TYPING B27, IMMUNOFIXATION BLOOD, RHEUMATOID ARTHRITIS 14-3-3 ETA, PROTEIN ELECTROPHORESIS BLOOD, RHEUMATOID FACTOR BLOOD QUANTITATIVE, XR HAND BILAT 2VW, XR LUMBAR SPINE 2 OR 3VW, XR SI JOINTS 3VW OR MORE, FERRITIN, IRON + TIBC PANEL, THIOPURINE METHYLTRANSFERASE, ANCA VASCULITIS PANEL, MERLIN PANEL COMPREHENSIVE, INTERPRETATION REFLEXED Other fatigue - Plan: ALDOLASE, ANGIOTENSIN CONVERTING ENZYME BLOOD, CK BLOOD, COMPLEMENT C3, COMPLEMENT C4, C-REACTIVE PROTEIN, CYCLIC CITRULLINATED PEPTIDE([facility]P) AB IGG, ERYTHROCYTE SEDIMENTATION RATE, HEPATITIS SCREEN ACUTE ([facility]), HLA TYPING B27, IMMUNOFIXATION BLOOD, RHEUMATOID ARTHRITIS 14-3-3 ETA, PROTEIN ELECTROPHORESIS BLOOD, RHEUMATOID FACTOR BLOOD QUANTITATIVE, XR HAND BILAT 2VW, XR LUMBAR SPINE 2 OR 3VW, XR SI JOINTS 3VW OR MORE, FERRITIN, IRON + TIBC PANEL, THIOPURINE METHYLTRANSFERASE, ANCA VASCULITIS PANEL, MERLIN PANEL COMPREHENSIVE, INTERPRETATION REFLEXED Encounter for long-term (current) use of high-risk medication - Plan: ALDOLASE, ANGIOTENSIN CONVERTING ENZYME BLOOD, CK BLOOD, COMPLEMENT C3, COMPLEMENT C4, C- REACTIVE PROTEIN, CYCLIC CITRULLINATED PEPTIDE([facility]P) AB IGG, ERYTHROCYTE SEDIMENTATION RATE, HEPATITIS SCREEN ACUTE ([facility]), HLA TYPING B27, IMMUNOFIXATION BLOOD, RHEUMATOID ARTHRITIS 14-3-3 ETA, PROTEIN ELECTROPHORESIS BLOOD, RHEUMATOID FACTOR BLOOD QUANTITATIVE, XR HAND BILAT 2VW, XR LUMBAR SPINE 2 OR 3VW, XR SI JOINTS 3VW OR MORE, FERRITIN, IRON + TIBC PANEL, THIOPURINE METHYLTRANSFERASE, ANCA VASCULITIS PANEL, MERLIN PANEL COMPREHENSIVE, INTERPRETATION REFLEXED Long history of aches and pains which is getting worse. Previous use of Flexeril gabapentin Lyrica for chronic pain. Differential diagnoses include noninflammatory pain like osteoarthritis versus inflammatory arthritis and connective tissue disease like lupus rheumatoid arthritis vasculitis and paraneoplastic syndrome. I have advised routine medical care and cancer screening appropriate for age and risk factors through PCP. We discussed doing work-up to rule out autoimmune diseases the patient agrees. I will make further plan regarding diagnosis and follow-up and treatment after going over the workup ordered today. If she is found to have inflammatory arthritis or autoimmune disease we will have her come back to discuss diagnosis and treatment. If workup negative for autoimmune disease she will follow up with PCP. Advised to keep ideal body weight and do daily stretching. Patient should keep on seeing Primary Care Provider for routine medical care and cancer screening appropriate for age and risk factors Thank you for referral, I hope that I will be off benefit in care for this pleasant patient. Pleasefeel free to call for any questions. Plan Plan: Medications Discontinued During This Encounter Medication Reason acetaminophen-codeine (TYLENOL #3) 300-30 MG tablet No Pharm No AV[facility] gabapentin (NEURONTIN) 100 MG capsule No Pharm No AVS HYDROcodone-acetaminophen ([place]) 5-325 MG tablet No Pharm No [facility] ibuprofen (MOTRIN) 800 MG tablet No Pharm No [facility] lisinopril (PRINIVIL; ZESTRIL) 20 MG tablet No Pharm No [facility]S ondansetron (ZOFRAN) 4 MG tablet No Pharm No AVS oxyCODONE-acetaminophen (PERCOCET) 5-325 MG tablet No Pharm No AVS Current Outpatient Medications Medication Sig Dispense Refill omeprazole (PRILOSEC) 20 MG capsule Take 1 (one) capsule by mouth daily 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 ondansetron, disintegrating, (Zofran ODT) 4 MG tablet Take 1 (one) tablet by mouth every 6 hours asneeded for Nausea/Vomiting Allow tablet to dissolve on the tongue 20 tablet 0 tamsulosin (Flomax) 0.4 MG capsule Take 1 (one) capsule by mouth once daily after breakfast At the same time every day after a meal. 30 capsule 0 No current facility-administered medications for this visit. Orders Placed This Encounter XR HAND BILAT 2VW Standing Status: Future Number of Occurrences: 1 Standing Expiration Date: 02/19/2025 Order Specific Question: Release to patient Answer: Immediate XR LUMBAR SPINE 2 OR 3VW Standing Status: Future Number of Occurrences: 1 Standing Expiration Date: 02/19/2025 Order Specific Question: Release to patient Answer: Immediate Order Specific Question: Which views are required? Answer: Radiologist Protocol Views XR SI JOINTS 3VW OR MORE Standing Status: Future Number of Occurrences: 1 Standing Expiration Date: 02/19/2025 Order Specific Question: Release to patient Answer: Immediate ALDOLASE Order Specific Question: Release to patient Answer: Immediate ANGIOTENSIN CONVERTING ENZYME BLOOD Order Specific Question: Release to patient Answer: Immediate CK BLOOD Order Specific Question: Release to patient Answer: Immediate COMPLEMENT C3 Order Specific Question: Release to patient Answer: Immediate COMPLEMENT C4 Order Specific Question: Release to patient Answer: Immediate C-REACTIVE PROTEIN Order Specific Question: Release to patient Answer: Immediate CYCLIC CITRULLINATED PEPTIDE([facility]) AB IGG Order Specific Question: Release to patient Answer: Immediate ERYTHROCYTE SEDIMENTATION RATE Order Specific Question: Release to patient Answer: Immediate HEPATITIS SCREEN ACUTE ([facility]) Order Specific Question: Release to patient Answer: Immediate HLA TYPING B27 Order Specific Question: Release to patient Answer: Immediate IMMUNOFIXATION BLOOD Order Specific Question: Release to patient Answer: Immediate RHEUMATOID ARTHRITIS 14-3-3 ETA Order Specific Question: Release to patient Answer: Immediate PROTEIN ELECTROPHORESIS BLOOD Order Specific Question: Release to patient Answer: Immediate RHEUMATOID FACTOR BLOOD QUANTITATIVE Order Specific Question: Release to patient Answer: Immediate FERRITIN Order Specific Question: Release to patient Answer: Immediate IRON + TIBC PANEL Order Specific Question: Release to patient Answer: Immediate THIOPURINE METHYLTRANSFERASE Order Specific Question: Release to patient Answer: Immediate ANCA VASCULITIS PANEL Order Specific Question: Release to patient Answer: Immediate MERLIN PANEL COMPREHENSIVE Order Specific Question: Release to patient Answer: Immediate INTERPRETATION REFLEXED Patient will call us in 4 weeks if she does not hear from us Return if symptoms worsen or fail to improve. Cc PCP documented in this encounter Plan of Treatment Not on file documented as of this encounter Procedures Procedure Name Priority Date/Time Associated Diagnosis Comments FERRITIN Routine 02/20/2024 10:48 AM CDT Polyarthralgia Numbness Myalgia, multiple sites Other low back pain Cervicalgia Other fatigue Encounter for long-term (current) use of high-risk medication HEPATITIS SCREEN ACUTE ([facility]) Routine 02/20/2024 10:47 AM CDT Polyarthralgia Numbness Myalgia, multiple sites Other low back pain Cervicalgia Other fatigue Encounter for long-term (current) use of high-risk medication RHEUMATOID ARTHRITIS 14-3-3 ETA Routine 02/20/2024 10:47 AM CDT Polyarthralgia Numbness Myalgia, multiple sites Other low back pain Cervicalgia Other fatigue Encounter for long-term (current) use of high-risk medication INTERPRETATION REFLEXED Routine 02/20/20 10:47 AM CDT Polyarthralgia Numbness Myalgia, multiple sites Other low back pain Cervicalgia Other fatigue Encounter for long-term (current) use of high-risk medication IMMUNOFIXATION BLOOD Routine 02/20/2024 10:47 AM CDT Polyarthralgia Numbness Myalgia, multiple sites Other low back pain Cervicalgia Other fatigue Encounter for long-term (current) use of high-risk medication RHEUMATOID FACTOR BLOOD QUANTITATIVE Routine 02/20/2024 10:47 AM CDT Polyarthralgia Numbness Myalgia, multiple sites Other low back pain Cervicalgia Other fatigue Encounter for long-term (current) use of high-risk medication C-REACTIVE PROTEIN Routine 02/20/2024 10 :47 AM CDT Polyarthralgia Numbness Myalgia, multiple sites Other low back pain Cervicalgia Other fatigue Encounter for long-term (current) use of high-risk medication HLA TYPING B27 Routine 02/20/2024 10:47 AM CDT Polyarthralgia Numbness Myalgia, multiple sites Other low back pain Cervicalgia Other fatigue Encounter for long-term (current) use of high-risk medication ANGIOTENSIN CONVERTING ENZYME BLOOD Routine 02/20/2024 10:47 AM CDT Polyarthralgia Numbness Myalgia, multiple sites Other low back pain Cervicalgia Other fatigue Encounter for long-term (current) use of high-risk medication ALDOLASE Routine 02/20/2024 10:47 AM CDT Polyarthralgia Numbness Myalgia, multiple sites Other low back pain Cervicalgia Other fatigue Encounter for long-term (current) use of high-risk medication CYCLIC CITRULLINATED PEPTIDE([facility]P) AB IGG Routine 02/20/2024 10:47 AM CDT Polyarthralgia Numbness Myalgia, multiple sites Other low back pain Cervicalgia Other fatigue Encounter for long-term (current) use of high-risk medication ERYTHROCYTE SEDIMENTATION RATE Routine 02/20/2024 10:47 AM CDT Polyarthralgia Numbness Myalgia, multiple sites Other low back pain Cervicalgia Other fatigue Encounter for long-term (current) use of high-risk medication COMPLEMENT C4 Routine 02/20/2024 10:47 AM CDT Polyarthralgia Numbness Myalgia, multiple sites Other low back pain Cervicalgia Other fatigue Encounter for long-term (current) use of high-risk medication CK BLOOD Routine 02/20/2024 10:47 AM CDT Polyarthralgia Numbness Myalgia, multiple sites Other low back pain Cervicalgia Other fatigue Encounter for long-term (current) use of high-risk medication PROTEIN ELECTROPHORESIS BLOOD Routine 02/20/2024 10:47 AM CDT Polyarthralgia Numbness Myalgia, multiple sites Other low back pain Cervicalgia Other fatigue Encounter for long-term (current) use of high-risk medication COMPLEMENT C3 Routine 02/20/2024 10:47 AM CDT Polyarthralgia Numbness Myalgia, multiple sites Other low back pain Cervicalgia Other fatigue Encounter for long-term (current) use of high-risk medication MERLIN PANEL COMPREHENSIVE Routine 02/20/20 10:46 AM CDT Polyarthralgia Numbness Myalgia, multiple sites Other low back pain Cervicalgia Other fatigue Encounter for long-term (current) use of high-risk medication ANCA VASCULITIS PANEL Routine 02/20/2024 10:46 AM CDT Polyarthralgia Numbness Myalgia, multiple sites Other low back pain Cervicalgia Other fatigue Encounter for long-term (current) use of high-risk medication THIOPURINE METHYLTRANSFERASE Routine 02/20/2024 10:46 AM CDT Polyarthralgia Numbness Myalgia, multiple sites Other low back pain Cervicalgia Other fatigue Encounter for long-term (current) use of high-risk medication IRON + TIBC PANEL Routine 02/20/2024 10: 46 AM CDT Polyarthralgia Numbness Myalgia, multiple sites Other low back pain Cervicalgia Other fatigue Encounter for long-term (current) use of high-risk medication documented in this encounter Results * XR SI JOINTS 3VW OR MORE (02/20/2024 11:45 AM CDT) Anatomical Region Laterality Modality Pelvis, Lower Extremity [facility] 02/20/2024 12:0 0 PM CDT Impressions [...] M54.2: Cervicalgia. R53.83: Other fatigue. Z79.899: Other custodial (current) 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. Additional History: COMPARISON: None. [...] M54.2: Cervicalgia. R53.83: Other fatigue. 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 Additional History: COMPARISON: None. [...] M54.2: Cervicalgia. R53.83: Other fatigue. 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 Additional History: COMPARISON: None. [...] M54.2: Cervicalgia. R53.83: Other fatigue. 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 Additional History: COMPARISON: None. [...] MD DIAGNOSTIC IMAGING O RDERABLES * XR HAND BILAT 2VW (02/20/2024 11:45 [...] M54.2: Cervicalgia R53.83: Other fatigue Z79.899: Other custodial (current) 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 Additional History: COMPARISON: None. 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 [...] Resulting Agency Comment Lab Testing performed at: [facility] ??[facility] [id number] Nancy Cotto MD LAB - [facility] INSURANCE BILL [address] [place] [address] * INTERPRETATION REFLEXED (02/20/2024 10:47 AM CDT) Interpretation [facility] INSURANCE BILL Comment: Not infected with HCV unless early or acute infection is suspected (which may be delayed in an immunocompromised individual), or other evidence exists to indicate HCV infection. 02/20/2024 10:4 7 AM CDT 02/20/2024 Narrative Resulting Agency Comment Lab Testing performed at: [facility] [address] ??[facility] [id number] Nancy Cotto MD LAB - SEROLOGY ORDER ROLANDA [facility] INSURANCE BILL [address] [place] [address] * RHEUMATOID FACTOR BLOOD QUANTITATIVE (02/20/2024 10:47 AM CDT) Pathologist [facility] Rheumatoid Factor <10.0 <14.0 IU/mL [facility] INSURANCE BILL Blood BLOOD SPECIMEN / Unknown 02/20/2024 10:47 AM CDT 02/20/2024 Narrative Resulting Agency Comment Lab Testing performed at: [facility] [address] [place] [address] ??[facility] [id number] Nancy Cotto MD LAB - CHEMISTRY ORDE RABLES Performing Organization Address City/[facility]/ZIP Co de Phone Number [facility] INSURANCE BILL [address] [place] [address] * PROTEIN ELECTROPHORESIS BLOOD (02/20/2024 10:47 AM CDT) Protein Total 6.7 6.0 - 8.5 g/dL [facility] INSURANCE BILL Albumin 3.8 2.9 - 4.4 g/dL [facility] INSURANCE BILL Alpha-1 Globulin 0.2 0.0 - 0.4 g/dL [facility] INSURANCE BILL Txuxg-0-Wedecyvp 0.6 0.4 - 1.0 g/dL [facility] INSURANCE [...] scan will follow via computer, mail, or boss dyer delivery. P E Interpretation, S [facility] INSURANCE BILL Comment: The SPE pattern appears unremarkable. Evidence of monoclonal protein is not apparent. Blood BLOOD SPECIMEN / Unknown 02/20/2024 10:47 AM CDT 02/20/2024 Narrative Resulting Agency Comment [facility]: [facility] [address] ??[place] [id number] Nancy Cotto MD LAB - CHEMISTRY TOBY BILLY [facility] INSURANCE BILL [address] [place] [address] * RHEUMATOID ARTHRITIS 14-3-3 ETA (02/20/2024 10:47 AM CDT) 14.3.3 eta Protein <0.20 ng/mL [facility] INSURANCE BILL Comment: Reference Range: < 0.20 Comments: 14-3-3 eta protein is a joint-derived, proinflammatory neurology tech that is implicated in the joint erosion [...] in SDAI remission (1). References: 1. Faustina N, et al. Serum levels of 14-3-3 eta protein ?? supplement C-reactive protein and rheumatoid arthritis- ?? associated antibodies to predict clinical and ?? radiographic outcomes in a ??prospective cohort of ?? patients with recent-onset inflammatory polyarthritis. ?? Arthritis Res Ther 2016;18:37 2. Rivas SOTO, et al. 14-3-3 eta is a novel neurology tech ?? associated with the pathogenesis of rheumatoid arthritis ?? and joint damage. Arthritis Res Ther 2014;16:R99. This test was developed and its performance characteristics determined by [facility]. It has not been cleared or approved by the Food and Drug Administration. Blood BLOOD SPECIMEN / Unknown 02/20/2024 10:47 AM CDT 02/20/2024 Narrative Resulting Agency Comment Lab Testing performed at: [facility] [address] [place] [address] ??[facility] [id number] Nancy Cotto MD LAB - CHEMISTRY TOBY BILLY Performing Organization Address [facility] [facility] Co de Phone Number [facility] INSURANCE BILL [address] [place] [address] * (ABNORMAL) IMMUNOFIXATION BLOOD (02/20/2024 10:47 AM CDT) Immunofixation Result [facility] INSURANCE BILL Comment:No monoclonality det ected. IgG Quantitative 814 586 - 1,602 mg/dL [facility] INSURANCE BILL IgA Quantitative 429(H) 87 - 352 mg/dL [facility] INSURANCE BILL IgM Quantitative 112 26 - 217 mg/dL [facility] INSURANCE BILL Blood BLOOD SPECIMEN / Unknown 02/20/2024 10:47 AM CDT 02/20/2024 Narrative Resulting Agency Comment Lab Testing performed at: [facility] [address] ??[facility] [id number] Nancy Cotto MD LAB - CHEMISTRY TOBY BILLY Performing Organization Address City/[facility]/ZIP Co de Phone Number [facility] INSURANCE BILL [address] [place] [address] * HLA TYPING B27 (02/20/2024 10:47 AM CDT) HLA-B27 Negative [facility] INSURANCE BILL Comment: HLA-B*27 Negative B27 allele interpretation for all loci based on IMGT/HLA database version 3.51.0 This test was developed and its performance characteristics determined by [facility]. ??It has not been cleared or approved by the Food and Drug Administration. HLA Lab CLIA ID Number [id number] This test was performed using Polymerase Chain Reaction (PCR) and Sequence Specific Oligonucleotide Probes (SSOP) technique. Sequence Based Typing (SBT) may be used as a supplemental method when necessary. If you have questions, please call [facility] customer service at or email at [email or web address] Blood BLOOD SPECIMEN / Unknown 02/20/2024 10:47 AM CDT 02/20/2024 Narrative Resulting Agency Comment Lab Testing performed at: [facility] ??[facility] [id number] Nancy Cotto MD LAB - CHEMISTRY TOBY BILLY Performing Organization Address City/[facility]/ZIP Co de Phone Number [facility] INSURANCE BILL [address] [place] [address] * HEPATITIS SCREEN ACUTE ([facility]) (02/20/2024 10:47 AM CDT) Hepatitis A Virus Antibody IgM Negative Negative [facility] INSURANCE BILL Hepatitis B Virus Surface Antigen Negative Negative [facility] INSURANCE BILL Hepatitis B Core Virus Antibody IgM Negative Negative [facility] INSURANCE BILL Hepatitis C Antibody Non Reactive Non Reactive [facility] INSURANCE BILL Blood BLOOD SPECIMEN / Unknown 02/20/2024 10:47 AM CDT 02/20/2024 Narrative Resulting Agency Comment Lab Testing performed at: [facility] [address] [place] [address] ??[facility] [phone] Nancy Cotto MD LAB - CHEMISTRY TOBY BILLY Performing Organization Address City/[facility]/ZIP Co de Phone Number [facility] INSURANCE BILL [address] [place] [address] * ERYTHROCYTE SEDIMENTATION RATE (02/20/2024 10:47 AM CDT) Erythrocyte Sedimentation Rate Westergren 10 0 - 32 mm/hr [facility] INSURANCE BILL Blood BLOOD SPECIMEN / Unknown 02/20/2024 10:47 AM CDT 02/20/2024 Narrative Resulting Agency Comment Lab Testing performed at: [facility] [address] ??[facility] [phone] Nancy Cotto MD LAB - HEMATOLOGY ORD ERAJAZZMINE [facility] INSURANCE BILL [address] [place] [address] * CYCLIC CITRULLINATED PEPTIDE(CCP) AB IGG (02/20/2024 10:47 AM CDT) CCP Antibodies IgG/IgA <20 <20 Units [facility] INSURANCE BILL Comment: ? Negative: <20 ? Weak Positive: 20-39 ? Moderate Positive: 40-59 ??Strong Positive: >59 Blood BLOOD SPECIMEN / Unknown 02/20/2024 10:47 AM CDT 02/20/2024 Narrative Resulting Agency Comment Lab Testing performed at: [facility] [address] [place] [address] ??[facility] [phone] Nancy Cotto MD LAB - CHEMISTRY TOBY BILLY Performing Organization Address City/[facility]/ZIP Co de Phone Number [facility] INSURANCE BILL [address] [place] [address] * C-REACTIVE PROTEIN (02/20/2024 10:47 AM CDT) C-Reactive Protein <1 0 - 10 mg/L [facility] INSURANCE BILL Blood BLOOD SPECIMEN / Unknown 02/20/2024 10:47 AM CDT 02/20/2024 Narrative Resulting Agency Comment Lab Testing performed at: [facility] [address] ??[facility] [phone] Nancy Cotto MD LAB - CHEMISTRY TOBY BILLY [facility] INSURANCE BILL [address] [place] [address] * COMPLEMENT C4 (02/20/2024 10:47 AM CDT) Complement C4 26 14 - 44 mg/dL [facility] INSURANCE BILL Blood BLOOD SPECIMEN / Unknown 02/20/2024 10:47 AM CDT 02/20/2024 Narrative Resulting Agency Comment Lab Testing performed at: [facility] [facility] [address] [place] [address] ??[facility] [phone] Nancy Cotto MD LAB - SEROLOGY ORDER ROLANDA [facility] INSURANCE BILL [address] [place] [address] * (ABNORMAL) COMPLEMENT C3 (02/20/2024 10:47 AM CDT) Complement C3 187(H) 82 - 167 mg/dL [facility] INSURANCE BILL Blood BLOOD SPECIMEN / Unknown 02/20/2024 10:47 AM CDT 02/20/2024 Narrative Resulting Agency Comment Lab Testing performed at: [employer] [address] [place] [address] ??[facility] [phone] Nancy Cotto MD LAB - CHEMISTRY TOBY BILLY Performing Organization Address [facility]/ZIP Co de Phone Number [facility] INSURANCE BILL [address] [place] [address] * CK BLOOD (02/20/2024 10:47 AM CDT) CK 73 32 - 182 U/L [facility] INSURANCE BILL Blood BLOOD SPECIMEN / Unknown 02/20/2024 10:47 AM CDT 02/20/2024 Narrative Resulting Agency Comment Lab Testing performed at: [facility] [address] ??[facility] [id number] Nancy Cotto MD LAB - CHEMISTRY TOBY BILLY Performing Organization Address City/[facility]/ZIP Co de Phone Number [facility] INSURANCE BILL [address] [place] [address] * ANGIOTENSIN CONVERTING ENZYME BLOOD (02/20/2024 10:47 AM CDT) Angiotensin-Con verting Enzyme 77 14 - 82 U/L [facility] INSURANCE BILL Blood BLOOD SPECIMEN / Unknown 02/20/2024 10:47 AM CDT 02/20/2024 Narrative Resulting Agency Comment Lab Testing performed at: [facility] [address] ??[place] [id number] Nancy Cotto MD LAB - CHEMISTRY TOBY BILLY Performing Organization Address [facility]/ZIP Co de Phone Number [facility] INSURANCE BILL [address] [place] [address] * ALDOLASE (02/20/2024 10:47 AM CDT) Pathologist [facility] Aldolase 6.9 3.3 - 10.3 U/L [facility] INSURANCE BILL Blood BLOOD SPECIMEN / Unknown 02/20/2024 10:47 AM CDT 02/20/2024 Narrative Resulting Agency Comment Lab Testing performed at: [facility] [address] ??[place] [phone] Nancy Cotto MD LAB - CHEMISTRY TOBY BILLY Performing Organization Address [facility] Co de Phone Number [facility] INSURANCE BILL [address] [place] [address] * MERLIN PANEL COMPREHENSIVE (02/20/2024 10:46 AM CDT) Pathologist [facility] Anti-dsDNA Quantitative <1 0 - 9 IU/mL [facility] INSURANCE BILL Comment: ?Negative ?<5 ?Equivocal ??5 - 9 ?Positive ?>9 GEOLOGICAL MANAGER Antibody 0.2 0.0 - 0.9 AI [facility] [...] Sm (anti-Tellez) ?SLE ?15 - 30% ?--------- GEOLOGICAL MANAGER ?Mixed Connective Tissue ? Disease ? 95% [...] Resulting Agency Comment Lab Testing performed at: [facility] [address] ??[facility] [phone] Nancy Cotto MD LAB - SEROLOGY ORDER ROLANDA [facility] INSURANCE BILL [address] [place] [address] * ANCA VASCULITIS PANEL (02/20/2024 10:46 AM [...] up testing of positive sera with both SC-3 and MPO-ANCA enzyme immunoassays. As many as 5% serum samples are positive only by EIA. Ref. AM J Clin Pathol 1999;111:507-513. Atypical p-ANCA Titer <1:20 Neg:<1:20 titer [facility] Comment: The atypical pANCA pattern has been observed in a significant percentage of patients with ulcerative colitis, primary sclerosing cholangitis and autoimmune hepatitis. Blood BLOOD SPECIMEN / Unknown 02/20/2024 10:46 AM CDT 02/20/2024 Narrative Resulting Agency Comment Lab Testing performed at: [address] ??[facility] [id number] Nancy Cotto MD LAB - CHEMISTRY TOBY BILLY [facility] INSURANCE BILL [address] [place] [address] * THIOPURINE METHYLTRANSFERASE (02/20/2024 10:46 AM CDT) TPMT Activity 25.6 Units/mL RBC [facility] Comment: Reference Range: Normal: 15.1 - 26.4 Heterozygous for low TPMT variant: 6.3 - 15.0 Homozygous for low TPMT variant: <6.3 Interpretation [facility] Comment: The above results can be interpreted as Normal for red blood cell Thiopurine Methyltransferase activity. For patients having an intrinsic low level of TPMT, recent RBC transfusion can variably increase their assayed enzymatic activity depending on the amount and circulating half-life of the transfused red blood cells. This test was developed and its performance characteristics determined by [facility]. It has not been cleared or approved by the Food and Drug Administration. This case has been reviewed, approved, interpreted and electronically signed by Kodi Weldon, PhD, [facility]. Methodology [facility] INSURANCE BILL Comment: Enzymatic Endpoint/Liquid Chromatography - Tandem Mass Spectrometry (LC-MS/MS) Blood BLOOD SPECIMEN / Unknown 02/20/2024 10:46 AM CDT 02/20/2024 Narrative Resulting Agency Comment Lab Testing performed at: [employer] [address] [facility] ??[facility] [id number] Nancy Cotto MD LAB - CHEMISTRY TOBY BILLY [facility] INSURANCE BILL [address] [place] [address] * IRON + TIBC PANEL (02/20/2024 10:46 [...] Resulting Agency Comment Lab Testing performed at: [facility] ??[facility] [id number] Nancy Cotto MD LAB - CHEMISTRY TOBY BILLY Performing Organization Address [facility] Co de Phone Number [facility] INSURANCE BILL [address] [place] [address] documented in this encounter Visit Diagnoses Diagnosis Polyarthralgia- Primary Pain in joint, multiple sites Numbness Disturbance of skin sensation Myalgia, multiple sites Other low back pain Cervicalgia Other fatigue Encounter for long-term (current) use of high-risk medication Encounter for long-term (current) use of other medications Polyarthralgia Pain in joint, multiple sites Numbness Disturbance of skin sensation Myalgia, multiple sites Other low back pain Cervicalgia Other fatigue Encounter for long-term (current) use of high-risk medication Encounter for long-term (current) use of other medications documented in this encounter Care Teams Insole Doubler Relationship Specialty Start Date End Date Damian Sadler MD PCP - General Internal Medicine 07/04/16 documented as of this encounter
--- OUTSIDE RECORDS SUMMARY | 2024-08-17 01:52 | XMS_ITS | Clinical Summary ---
Author Organization [facility] Address [address] [place] [address] Care Team Providers Care Quill Machine Operator Name Role Phone Damian Sadler MD Primary Care Provider [phone] Source Comments [facility],non-owned Affiliates and Associated Physician Practices is amultiple site organization consisting of ambulatory clinics and hospital sitesin [place], [place], [place] and [place]. This disclosure is being madepursuant to the Care Everywhere program and may not contain all information available regarding this patient. Last updated 18.[facility] Allergies Active Allergy Reactions Criticality Noted Date Comments Hydralazine Vomiting 02/02/2024 Ketorolac Itching 06/04/2019 Tramadol Urticaria Medium 08/27/2016 Medications * Be aware that medications may not be up to date on this document. Always verify current medications with the patient. Medication Sig Dispensed Refills Start Date End Date Status omeprazole (PRILOSEC) 20 MG capsule Take 1 (one) capsule by mouth daily 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 Active tamsulosin (Flomax) 0.4 MG capsule Take 1 (one) capsule by mouth once daily after breakfast At the same time every day after a meal. 30 capsule 02/03/2024 Active ondansetron, disintegrating, (Zofran ODT) 4 MG tablet Take 1 (one) tablet by mouth every 6 hours as needed for Nausea/Vomiting Allow tablet to dissolve on the tongue 20 tablet 02/03/2024 Active Active Problems Problem Noted Date Diagnosed Date Headache disorder 08/27/2016 Numbness 08/27/2016 Arm weakness 08/27/2016 Leg weakness, bilateral 08/27/2016 Family History Medical History Relation Name Comments Hypertension Father Hypertension Mother Relation Name Status Comments Father Mother Social History Tobacco Use Types Packs/Day Years [...] Mass Index 31.89 02/20/2024 9:18 AM CDT Plan of Treatment Health Maintenance Due Date Last Done Comments COLOGUARD (AGES 45-75) - COL ON CA SCREENING 1979 COLON MONITORING 1979 COLONOSCOPY - COLON CA SCREENING 1979 CT COLONOGRAPHY - COLON CA SCREENING 1979 Colorectal Cancer Screening 1979 FIT - COLON CA SCREENING 1979 FLEX SIG - COLON CA SCREENING 1979 LIPID TESTING 1979 MAMMOGRAM 1979 PAP SMEAR 1979 PNEUMOCOCCAL VACCINE (1 of 2 - PCV) 1985 HIV SCREENING 1994 DTAP/TDAP/TD VACCINES (1 - Tdap) 1998 HEPATITIS B VACCINE (1 of 3 - 19+ 3-dose series) 1998 DEPRESSION SCREENING 08/12/2023 COVID-19 VACCINE (1 2023-2 5 season) 2024 INFLUENZA VACCINE (#1) 2024 5, 05/12/2015 SCREENING FOR DIABETES 02/02/2027 4, 06/04/2019 ZOSTER VACCINE (1 of 2) 2029 HEPATITIS C SCREENING Completed 02/20/2024 HIB VACCINE Aged Out No longer eligi ble based on patient's age to complete this topic HPV VACCINE Aged Out No longer eligi ble based on patient's age to complete this topic MENINGOCOCCAL VACCINE Aged Out No huyen afua eligible based on patient's age to complete this topic Procedures Procedure Name Priority Date/Time Associated Diagnosis Comments HEPATITIS SCREEN ACUTE ([facility]) Routine 02/20/2024 10:47 AM CDT Polyarthralgia Numbness Myalgia, multiple sites Other low back pain Cervicalgia Other fatigue Encounter for long-term (current) use of high-risk medication COMPREHENSIVE METABOLIC PANEL STAT 02/03/2024 1:03 AM CDT from Last 3 Months or Most Recently Relevant to Health Maintenance Results * HEPATITIS SCREEN ACUTE ([facility]) (02/20/2024 10:47 [...] Resulting Agency Comment [facility]: [facility] [address] [facility] ??[facility] [phone] Nancy Cotto MD LAB - CHEMISTRY TOBY BILLY [facility] INSURANCE BILL [address] [place] [address] * (ABNORMAL) COMPREHENSIVE METABOLIC PANEL (02/03/2024 1:03 AM CDT) BUN 9 7 - 26 mg/dL 02/03/2024 1:45 AM [facility] Creatinine 0.64 0.56 - 0.96 mg/dL 02/03/2024 1:45 AM [facility] Sodium 139 136 - 145 mmol/L 02/03/2024 1:45 AM [facility] Potassium 3.4(L) 3.5 - 4.5 mmol/L 02/03/2024 1:45 AM [facility] Chloride 107 98 - 107 mmol/L 02/03/2024 1:45 AM [facility] CO2 21(L) 22 - 29 mmol/L 02/03/2024 1:45 AM [facility] Glucose 78 70 - 115 mg/dL 02/03/2024 1:45 AM [facility] Calcium 9.9 8.4 - 10.2 mg/dL 02/03/2024 1:45 AM [facility] Protein Total 7.7 6.0 - 8.3 g/dL 02/03/2024 1:45 AM [facility] Albumin 4.4 3.4 - 5.0 g/dL 02/03/2024 1:45 AM [facility] Bilirubin Total 0.4 0.2 - 1.2 mg/dL 02/03/2024 1:45 AM [facility] Alkaline Phosphatase 81 40 - 150 U/L 02/03/2024 1:45 AM [facility] ALT 58(H) 5 - 55 U/L 02/03/2024 1:45 AM [facility] AST 33 5 - 34 U/L 02/03/2024 1:45 AM [facility] Anion Gap 11 6 - 16 02/03/2024 1:45 AM [facility] BUN/Creatinine Ratio 14 7 - 23 02/03/2024 1:45 AM [facility] Osmolality Calculated 286 275 - 295 mOsm/kg 02/03/2024 1:45 AM [facility] Albumin/Globulin Ratio 1.3 1.1 - 2.3 02/03/2024 1:45 AM [facility] eGFR by CKD-EPI >90 >=90 mL/min/1.7 3 m2 02/03/2024 1:45 AM CDT [facility] Blood BLOOD SPECIMEN / Unknown Venipuncture / Unknown 02/03/2024 1:03 AM CDT 02/03/2024 1:17 AM CDT Kaylee Reyes MD LAB - CHEMISTRY TOBY BILLY [facility] [address] [place] [address], [facility] [phone] from Last 3 Months or Most Recently Relevant to Health Maintenance Care Teams Quill Machine Operator Relationship Specialty Start Date End Date Damian Sadler MD PCP - General Internal Medicine 07/04/16
--- OUTSIDE RECORDS SUMMARY | 2024-08-17 01:52 | XMS_ITS | Encounter Summary ---
Author Organization [facility] Address [address] [place] [address] Care Team Providers Care Dining Chair Seat Cushion Trimmer Name Role Phone Damian Sadler MD Primary Care Provider [phone] Reason for Visit * Reason Comments Pain Flank right sided flank hx kidney stones reports hematuria denies frequency urgency and dysuria low grade fevers Diarrhea has abscess in her m outh and has been on augmentin denies abdminal pain Encounter Details Date Type Department Care Team (Late st Contact Info) Description 06/04/2019 11:06 AM CDT - 06/04/2019 1:55 PM CDT Emergency ER at [facility] [address] [place] [address] Flank pain (Primary Dx); Abdominal pain, right lower quadrant; Bilateral ovarian cysts Discharge Disposition: Home or Self Care Social History Tobacco Use Types Packs/Day Years [...] Sign Reading Time Taken Comments Blood Pressure 158/99 06/04/2019 1:30 PM CDT Pulse 85 06/04/2019 11:23 AM CDT Temperature 37.2 ??C (98.9 ??F) 06/04/2019 11:23 AM C DT Respiratory Rate 16 06/04/2019 11:23 AM CDT Oxygen Saturation 100% 06/04/2019 1:30 PM CDT Inhaled Oxygen Concentration - - Weight 76.9 kg (169 lb 9.6 oz) 06/04/2019 11:27 AM CDT Height 160 cm (5' 3 ) 06/04/2019 11:23 AM CDT Body Mass Index 30.04 06/04/2019 11:23 AM CDT documented in this encounter Discharge Instructions * Discharge Instructions* Luna Durant APRN-CNP - 06/04/2019 1:43 PM CDT Follow up with your OBGYN regarding bilateral ovarian cysts. I suspect your flank pain may be from passing a kidney stone. Take ibuprofen for residual pain. Increase water intake. If any worsening pain, fever, chills or vomiting, come back to the ER. * Attachments The following attachments cannot be sent through Care Everywhere. * Ovarian Cyst (AfterCare(R) Instructions(ER/ED)) (Haitian) * Acute Abdominal Pain (AfterCare(R) Instructions(ER/ED)) (Haitian) documented in this encounter Medications at Time of Discharge Medication Sig Dispensed Refills Start Date End Date omeprazole (PRILOSEC) 20 MG capsule Take 1 (one) capsule by mouth daily 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 acetaminophen-codeine (TYLENOL #3) 300-30 MG tablet Take 1-2 Tabs by mouth every 4 hours as needed Reported on 08/27/2016 0 04/30/2016 02/20/2024 gabapentin (NEURONTIN) 100 MG capsuleIndications:Head ache disorder Take 1 Cap by mouth 3 times daily 270 Cap 3 08/27/2016 02/20/2024 HYDROcodone-acetaminoph en (NORCO) 5-325 MG tablet Take 1 Tab by mouth 3 times daily as needed Reported on 08/27/2016 0 07/03/2016 02/03/2024 ibuprofen (MOTRIN) 800 MG tablet Take 800 mg by mouth every 6 hours as needed 0 06/12/2016 02/20/2024 lisinopril (PRINIVIL; ZESTRIL) 20 MG tablet Take 20 mg by mouth once daily 02/20/2024 ondansetron (ZOFRAN) 4 MG tablet Take 4 mg by mouth every 4 hours as needed 0 05/15/2016 02/20/2024 oxyCODONE-acetaminophen (PERCOCET) 5-325 MG tablet Take 1 Tab by mouth every 6 hours as needed Reported on 08/27/2016 0 05/15/2016 02/20/2024 documented as of this encounter ED Notes * Bang Paniagua RN - 06/04/2019 1:53 PM CDT Pt verbalized understanding of dc instructions all questions answered at time of dc. Pt able to ambulate out of the ed without any problems. * Luna Durant, GROMMET WORKER-RADIO MESSAGE ROUTER - 06/04/2019 12:32 PM CDT Renee Luke [id number] [facility] EMERGENCY DEPARTMENT History Chief Complaint Patient presents with ??? Pain Flank right sided flank hx kidney stones reports hematuria denies frequency urgency and dysuria low gradefevers ??? Diarrhea has abscess in her mouth and has been on augmentin denies abdminal pain HPI 39-year-old female presents to the ED complaining of intermittent right flank pain that radiates tothe right lower quadrant of her abdomen since yesterday afternoon. States that she had this same pain that occurred 4 days ago for few hours but then resolved. The 1st episode she did have some some nausea and vomiting with it. She has not had any vomiting since pain started last night. History of kidney stones and states this feels the same. She did have some hematuria with this today. She does note that she has been on 3 different antibiotics in the past couple weeks for dental infections. Was on penicillin, amoxicillin and lastly Augmentin. Stopped Augmentin for 6 days ago. States she has had mild diarrhea since being on Augmentin. No longer having dental pain or abscess. She denies any fever, blood in stool, body aches, chills, back pain, dysuria, urinary urgency, urinary frequency and all other symptoms at this time. Past Medical History: Diagnosis Date ??? Hypertension ??? Migraine headache pressure ??? Tension headache Past Surgical History: Procedure Laterality Date ??? Section ??? Section ??? Section ??? ELBOW PROCEDURE/SURGERY Left 2 SCREWS ??? Hysterectomy Right Family History Problem Relation Age of Onset ??? Hypertension Mother ??? Hypertension Father Social History Socioeconomic History ??? Marital status: Spouse name: BANG ??? Number of children: 3 ??? Years of education: Not on file ??? Highest education level: Not on file Occupational History ??? 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 Financial resource strain: Not on file ??? Food insecurity: Worry: Not on file Inability: Not on file ??? Transportation needs: Medical: Not on file Non-medical: Not on file Tobacco Use ??? Smoking status: Current Every Day Smoker Packs/day: 0.50 Types: Cigarettes ??? Smokeless tobacco: Never Used Substance and Sexual Activity ??? Alcohol use: No ??? Drug use: No ??? Sexual activity: Not on file Lifestyle ??? Physical activity: Days per week: Not on file Minutes per session: Not on file ??? Stress: Not on file Relationships ??? Social connections: Talks on phone: Not on file Gets together: Not on file Attends taoism service: Not on file Active member of club or organization: Not on file Attends meetings of clubs or organizations: Not on file Relationship status: Not on file ??? Intimate partner violence: Fear of current or ex partner: Not on file Emotionally abused: Not on file Physically abused: Not on file Forced sexual activity: Not on file Other Topics Concern ??? Not on file Social History Narrative ??? Not on file Review of Systems Review of Systems Constitutional: Negative for chills, fever and malaise/fatigue. HENT: Negative for sore throat. Respiratory: Negative for shortness of breath. Cardiovascular: Negative for chest pain and palpitations. Gastrointestinal: Positive for abdominal pain, diarrhea, nausea and vomiting. Negative for blood instool, constipation and heartburn. Genitourinary: Positive for flank pain and hematuria. Negative for dysuria, frequency and urgency. Musculoskeletal: Negative for back pain, myalgias and neck pain. Skin: Negative for rash. Neurological: Negative for dizziness, weakness and headaches. All other systems reviewed and are negative. Physical Exam BP 158/99 Pulse 85 Temp 98.9 ??F (37.2 ??C) (Oral) Resp 16 Ht 1.6 m (5' 3 ) Wt 76.9 kg (169 lb 9.6 oz) SpO2 100% BMI 30.04 kg/m?? Physical Exam Constitutional: She is oriented to person, place, and time. Vital signs are normal. She appears well-developed and well-nourished. She is cooperative. Non- toxic appearance. She does not have a sicklyappearance. She does not appear ill. No distress. HENT: Head: Normocephalic and atraumatic. Cardiovascular: Normal rate, regular rhythm, S1 normal, S2 normal and normal heart sounds. No murmur heard. Pulmonary/Chest: Effort normal and breath sounds normal. No accessory muscle usage. No tachypnea. No respiratory distress. She has no decreased breath sounds. She has no wheezes. She has no rhonchi. She has no rales. Abdominal: Soft. Normal appearance and bowel sounds are normal. She exhibits no distension and no mass. There is no hepatosplenomegaly. There is tenderness in the right lower quadrant. There is no rigidity, no rebound, no guarding, no CVA tenderness, no tenderness at McBurney's point and negative Palm's sign. No hernia. Musculoskeletal: Normal range of motion. Neurological: She is alert and oriented to person, place, and time. Skin: Skin is warm. She is not diaphoretic. Psychiatric: She has a normal mood and affect. Her behavior is normal. Judgment and thought contentnormal. Nursing note and vitals reviewed. Medications Current Outpatient Medications Medication Sig Dispense Refill ??? acetaminophen-codeine (TYLENOL #3) 300-30 MG tablet Take 1-2 Tabs by mouth every 4 hours as needed Reported on 08/27/2016 0 ??? gabapentin (NEURONTIN) 100 MG capsule Take 1 Cap by mouth 3 times daily 270 Cap 3 ??? HYDROcodone-acetaminophen (NORCO) 5-325 MG tablet Take 1 Tab by mouth 3 times daily as needed Reported on 08/27/2016 0 ??? ibuprofen (MOTRIN) 800 MG tablet Take 800 mg by mouth every 6 hours as needed 0 ??? lisinopril (PRINIVIL; ZESTRIL) 20 MG tablet Take 20 mg by mouth once daily ??? omeprazole (PRILOSEC) 20 MG capsule Take 20 mg by mouth daily 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 ??? ondansetron (ZOFRAN) 4 MG tablet Take 4 mg by mouth every 4 hours as needed 0 ??? oxyCODONE-acetaminophen (PERCOCET) 5-325 MG tablet Take 1 Tab by mouth every 6 hours as needed Reported on 08/27/2016 0 Procedures Procedures Lab/SPO2 Interpretation Hospital Encounter on 06/04/19 CBC W AUTO DIFFERENTIAL Result Value Ref Range WBC 10.3 4.4 - 10.7 x10E9/L WBC Corrected RBC 4.81 3.80 - 5.20 x10E12/L Hemoglobin 14.7 12.0 - 15.6 gm/dL Hematocrit 41.4 35.9 - 45.5 % MCV 86.1 80.7 - 98.3 fl MCH 30.6 26.7 - 34.0 pg MCHC 35.5 30.8 - 35.9 gm/dL Platelet Count 317 153 - 416 x10E9/L RDW-CV 11.4 (L) 12.1 - 14.9 % MPV 9.4 9.4 - 12.9 fl Neutrophils % 68.9 44.0 - 73.0 % Lymphocytes % 23.6 20.0 - 43.0 % Monocytes % 6.4 5.0 - 13.0 % Eosinophils % 0.5 0.0 - 6.0 % Basophils % 0.4 0.0 - 2.0 % Immature Granulocytes 0.2 0 - 1 % Neutrophil Absolute 7.08 2.01 - 7.14 x10E9/L Lymphocytes Absolute 2.43 1.07 - 3.94 x10E9/L Monocytes Absolute 0.66 0.26 - 1.07 x10E9/L Eosinophils Absolute 0.05 0 - 0.47 x10E9/L Basophils Absolute 0.04 0 - 0.08 x10E9/L Immature Granulocytes Absolute 0.02 0.00 - 0.06 x10E9/L nRBC Auto 0 /100 WBC COMPREHENSIVE METABOLIC PANEL Result Value Ref Range Glucose 75 70 - 105 mg/dL Sodium 142 136 - 145 mmol/L Potassium 3.9 3.5 - 4.7 mmol/L Chloride 108 (H) 98 - 107 mmol/L CO2 23 23 - 31 mmol/L Calcium 9.9 8.4 - 10.4 mg/dL Anion Gap 11 8 - 16 mmol/L BUN 10 7 - 18.7 mg/dL Creatinine 0.72 0.57 - 1.11 mg/dL Alkaline Phosphatase 81 40 - 150 U/L ALT 25 0 - 61 U/L AST 16 5 - 34 U/L Protein Total 7.6 6.4 - 8.3 gm/dL Albumin 4.4 3.5 - 5.2 gm/dL Bilirubin Total 0.3 0.2 - 1.0 mg/dL eGFR by MDRD >60 >60 mL/min/1.73m2 eGFR by MDRD >60 >60 mL/min/1.73m2 URINALYSIS REFLEX MICROSCOPIC REFLEX CULTURE Result Value Ref Range Color UA Straw Straw, Yellow Clarity UA Clear Clear Glucose UA Negative Negative Bilirubin UA Negative Negative Ketone UA Negative Negative Specific [place] UA 1.006 1.005 - 1.030 Blood UA Negative Negative pH UA 7.0 5.0 - 8.0 pH Protein UA Negative Negative Urobilinogen UA Negative Negative mg/dL Nitrite UA Negative Negative Leukocyte UA Negative Negative Urine Microscopy Urine microscopy not indicated Reflex Status Culture not indicated HCG URINE QUAL POCT NOTIFICATION Result Value Ref Range Comment Notification Label Only - See Separate Report LIPASE BLOOD Result Value Ref Range Lipase 29 8 - 78 U/L HCG URINE QUALITATIVE - POCT (IP) INTERFACED Result Value Ref Range HCG Qual Urine Negative Negative CT ABDOMEN AND PELVIS WITH IV CONTRAST Final Result Examination: CT abdomen and pelvis with contrast [...] Rendon MD on 06/04/2019 at 1:11 PM Progress Notes CBC, CMP, UA negative. Re-eval-- pain improved w/ pain medication. Informed of normal lab work. CT completely negative. Incidental ovarian cysts found. Discussed with patient that her pain is unlikely due to these ovarian cyst. May have been a kidney stone that passed but is no longer evident on CT. She appears comfortable and no longer in pain. Okay to discharge. Advised following up with OBGYN regarding ovarian cysts. ED Course Follow up with your OBGYN regarding bilateral ovarian cysts. I suspect your flank pain may be from passing a kidney stone. Take ibuprofen for residual pain. Increase water intake. If any worsening pain, fever, chills or vomiting, come back to the ER. Clinical Impressions as of Jun 04 1812 Abdominal pain, right lower quadrant Flank pain Bilateral ovarian cysts Medical Decision Making I have reviewed the: Previous Chart, Nursing Notes, Vitals. I have interpreted the following results: Labs, CT Scans and Oxygen Saturation. Orders Placed This Encounter ??? CT ABDOMEN AND PELVIS WITH IV CONTRAST ??? CBC W AUTO DIFFERENTIAL ??? COMPREHENSIVE METABOLIC PANEL ??? URINALYSIS REFLEX MICROSCOPIC REFLEX CULTURE ??? HCG URINE QUAL POCT NOTIFICATION ??? LIPASE BLOOD ??? DISCONTD: 0.9% NaCl injection 3 mL ??? DISCONTD: 0.9% NaCl injection 1-10 mL ??? ondansetron (ZOFRAN) injection 4 mg ??? 0.9% NaCl IV Bolus ??? morphine injection 4 mg ??? DISCONTD: 0.9% NaCl injection 3 mL ??? DISCONTD: 0.9% NaCl injection 1-10 mL ??? DISCONTD: iopamidol (ISOVUE 370) 76 % contrast Follow-up Information Follow-up With Details Why Contact Info Damian Sadler MD In 1 week [address] [phone] OBGYN In 1 week User Date/Time Luna Durant, GROMMET WORKER-RADIO MESSAGE ROUTER [place] Jun 04, 2019 1:41 PM * Celina Hernandez, RN - 06/04/2019 12:03 PM CDT Pt c/o R flank pain, R back pain and LRQ abdominal pain that radiates up above my belly button Onset Saturday. Pt has had extreme diarrhea x4 days. Pt denies N/V. Pt reports 7/10 pain att. Pt states that pressing on it seems to make the pain better. Pt reports low grade fevers of 99-101 off and on . documented in this encounter Plan of Treatment Not on file documented as of this encounter Procedures Procedure Name Priority Date/Time Associated Diagnosis Comments HCG URINE QUAL POCT NOTIFICATION STAT 06/04/2019 1:[address] ABDOMEN PELVIS W CONTRAST STAT 06/04/2019 12:56 PM CDT Abdominal pain, right lower quadrant URINALYSIS REFLEX MICROSCOPIC REFLEX CULTURE STAT 06/04/2019 12:07 PM CDT HCG URINE QUALITATIVE - POCT (IP) INTERFACED Routine 06/04/2019 12:06 PM CDT CBC W AUTO DIFFERENTIAL STAT 06/04/2019 11:56 AM CDT COMPREHENSIVE METABOLIC PANEL STAT 06/04/2019 11:56 AM CDT LIPASE BLOOD Add on 06/04/2019 11:56 AM CDT documented in this encounter Results * HCG URINE QUAL POCT NOTIFICATION (06/04/2019 1:02 PM CDT) Comment Notification Label Only - See Separate Report 06/04/2019 1:02 PM CDT [facility] Urine URINE / Unknown 9 11:47 AM CDT Tarun Garcia MD LAB - URINALYSIS OR DERABLES [facility] [address] [place] [address] * CT ABDOMEN AND PELVIS WITH IV [...] MD on 06/04/2019 at 1:11 PM Luna Donald Durant GROMMET WORKER-RADIO MESSAGE ROUTER CT ORDERABLES * URINALYSIS REFLEX MICROSCOPIC REFLEX CULTURE (06/04/2019 12:07 PM CDT) Color UA Straw Straw, Yellow 06/04/2019 12:14 PM CDT [facility] Clarity UA Clear Clear 06/04/2019 12:14 PM CDT [facility] Glucose UA Negative Negative 06/04/2019 12:14 PM CDT [facility] Bilirubin UA Negative Negative 06/04/2019 12:14 PM CDT [facility] Ketone UA Negative Negative 06/04/2019 12:14 PM CDT [facility] Specific [place] UA 1.006 1.005 - 1.030 06/04/2019 12:14 PM CDT [facility] Blood UA Negative Negative 06/04/2019 12:14 PM CDT [facility] pH UA 7.0 5.0 - 8.0 pH 06/04/2019 12:14 PM CDT [facility] Protein UA Negative Negative 06/04/2019 12:14 PM CDT [facility] Urobilinogen UA Negative Negative mg/dL 06/04/2019 12:14 PM CDT [facility] Nitrite UA Negative Negative 06/04/2019 12:14 PM CDT [facility] Leukocyte UA Negative Negative 06/04/2019 12:14 PM CDT [facility] Urine Microscopy Urine microscopy not indicated 06/04/2019 12:14 PM CDT [facility] Reflex Status Culture not indicated 06/04/2019 12:14 PM CDT [facility] Urine URINE SPECIMEN OBTAINED BY CLEAN CATCH PROCEDURE / Unknown Collection / Unknown 06/04/2019 12:07 PM CDT 06/04/2019 12:09 PM CDT Narrative [facility] - 06/04/2019 12:14 PM CDT Tarun Garcia MD LAB - URINALYSIS OR DERABLES [facility] [address] [place] [address] * HCG URINE QUALITATIVE - POCT (IP) INTERFACED (06/04/2019 12:06 PM CDT) HCG Qual Urine Negative Negative 06/04/2019 12:12 PM CDT [facility] Urine URINE / Unknown 06/04/2019 1 2:06 PM CDT 06/04/2019 12:12 PM CDT Provider Unknown LAB - POINT OF CARE ORDERABLES Performing Organization Address [facility]/ZIP Co de Phone Number [facility] [address] [place] [address] * LIPASE BLOOD (06/04/2019 11:56 AM CDT) [facility] Lipase 29 8 - 78 U/L 06/04/2019 12:59 PM T [facility] Blood BLOOD SPECIMEN / Unknown Venipuncture / Unknown 06/04/2019 11:56 AM CDT 06/04/2019 12:06 PM CDT Luna Durant GROMMET WORKER-RADIO MESSAGE ROUTER LAB - CHEMISTRY O RDERABLES Performing Organization Address [facility]/ZIP Co de Phone Number [facility] [address] [place] [address] * (ABNORMAL) COMPREHENSIVE METABOLIC PANEL (06/04/2019 11:56 AM CDT) [facility] Glucose 75 70 - 105 mg/dL 06/04/2019 12:26 PM [facility] Sodium 142 136 - 145 mmol/L 06/04/2019 12:26 PM [facility] Potassium 3.9 3.5 - 4.7 mmol/L 06/04/2019 12:26 PM [facility] Chloride 108(H) 98 - 107 mmol/L 06/04/2019 12:26 PM [facility] CO2 23 23 - 31 mmol/L 06/04/2019 12:26 PM T [facility] Calcium 9.9 8.4 - 10.4 mg/dL 06/04/2019 12:26 PM [facility] Anion Gap 11 8 - 16 mmol/L 06/04/2019 12:26 PM [facility] BUN 10 7 - 18.7 mg/dL 06/04/2019 12:26 PM [facility] Creatinine 0.72 0.57 - 1.11 mg/dL 06/04/2019 12:26 PM CDT [facility] Alkaline Phosphatase 81 40 - 150 U/L 06/04/2019 12:26 PM CDT [facility] ALT 25 0 - 61 U/L 06/04/2019 12:26 PM CDT [facility] AST 16 5 - 34 U/L 06/04/2019 12:26 PM CDT [facility] Protein Total 7.6 6.4 - 8.3 gm/dL 06/04/2019 12:26 PM CDT [facility] Albumin 4.4 3.5 - 5.2 gm/dL 06/04/2019 12:26 PM CDT [facility] Bilirubin Total 0.3 0.2 - 1.0 mg/dL 06/04/2019 12:26 PM CDT [facility] eGFR by MDRD >60 >60 mL/min/1.7 3m2 06/04/2019 12:26 PM CDT [facility] eGFR by MDRD >60 >60 mL/min/1.7 3m2 06/04/2019 12:26 PM CDT [facility] Blood BLOOD SPECIMEN / Unknown Venipuncture / Unknown 06/04/2019 11:56 AM CDT 06/04/2019 12:06 PM CDT Tarun Garcia MD LAB - CHEMISTRY ORD ERABLES [facility] [address] [place], [place] [id number] * (ABNORMAL) CBC W AUTO DIFFERENTIAL (06/04/2019 11:56 AM CDT) WBC 10.3 4.4 - 10.7 x10E9/L 06/04/2019 12:08 PM CDT [facility] WBC Corrected 06/04/2019 12:08 PM CDT [facility] RBC 4.81 3.80 - 5.20 x10E12/L 06/04/2019 12:08 PM CDT [facility] Hemoglobin 14.7 12.0 - 15.6 gm/dL 06/04/2019 12:08 PM CDT [facility] Hematocrit 41.4 35.9 - 45.5 % 06/04/2019 12:08 PM CDT [facility] MCV 86.1 80.7 - 98.3 fl 06/04/2019 12:08 PM [facility] MCH 30.6 26.7 - 34.0 pg 06/04/2019 12:08 PM [facility] MCHC 35.5 30.8 - 35.9 gm/dL 06/04/2019 12:08 PM [facility] Platelet Count 317 153 - 416 x10E9/L 06/04/2019 12:08 PM [facility] RDW-CV 11.4(L) 12.1 - 14.9 % 06/04/2019 12:08 PM [facility] MPV 9.4 9.4 - 12.9 fl 06/04/2019 12:08 PM [facility] Neutrophils % 68.9 44.0 - 73.0 % 06/04/2019 12:08 PM [facility] Lymphocytes % 23.6 20.0 - 43.0 % 06/04/2019 12:08 PM [facility] Monocytes % 6.4 5.0 - 13.0 % 06/04/2019 12:08 PM [facility] Eosinophils % 0.5 0.0 - 6.0 % 06/04/2019 12:08 PM [facility] Basophils % 0.4 0.0 - 2.0 % 06/04/2019 12:08 PM [facility] Immature Granulocytes 0.2 0 - 1 % 06/04/2019 12:08 PM [facility] Neutrophil Absolute 7.08 2.01 - 7.14 x10E9/L 06/04/2019 12:08 PM [facility] Lymphocytes Absolute 2.43 1.07 - 3.94 x10E9/L 06/04/2019 12:08 PM [facility] Monocytes Absolute 0.66 0.26 - 1.07 x10E9/L 06/04/2019 12:08 PM [facility] Eosinophils Absolute 0.05 0 - 0.47 x10E9/L 06/04/2019 12:08 PM [facility] Basophils Absolute 0.04 0 - 0.08 x10E9/L 06/04/2019 12:08 PM [facility] Immature Granulocytes Absolute 0.02 0.00 - 0.06 x10E9/L 06/04/2019 12:08 PM CDT [facility] nRBC Auto 0 /100 WBC 06/04/2019 12:08 PM CDT [facility] Blood BLOOD SPECIMEN / Unknown Venipuncture / Unknown 06/04/2019 11:56 AM CDT 06/04/2019 12:06 PM CDT Tarun Garcia MD LAB - HEMATOLOGY OR DERABLES [facility] [address] [place] [address] documented in this encounter Visit Diagnoses Diagnosis Flank pain- Primary Abdominal pain, unspecified site Abdominal pain, right lower quadrant Bilateral ovarian cysts Other and unspecified ovarian cyst documented in this encounter Administered Medications Inactive Administered Medications - up to 3 most recent administrations Medication Order MAR Action Action Date Dose Rate Site 0.9% NaCl injection 1-10 mL 1-10 mL, Intracatheter, PRN, Other, peripheral line flush, Starting on Sat06/04/19 at 1124, Until Sat06/04/19 at 1456, Flush peripheral IV catheter with 1-10 mL of normal saline before and after medications and prn to clear blood from the line or to verify patency. 0.9% NaCl injection 1-10 mL 1-10 mL, Intracatheter, PRN, Other, peripheral line flush, Starting on Sat06/04/19 at 1235, Until Sat06/04/19 at 1456, Flush peripheral IV catheter with 1-10 mL of normal saline before and after medications and prn to clear blood from the line or to verify patency. 0.9% NaCl injection 3 mL 3 mL, Intracatheter, EVERY 8 HOURS, First dose on Sat06/04/19 at 1400, Until Discontinued, Flush peripheral IV catheter with 3 mL of normal saline every 8 hours. 0.9% NaCl injection 3 mL 3 mL, Intracatheter, EVERY 8 HOURS, First dose on Sat06/04/19 at 1400, Until Discontinued, Flush peripheral IV catheter with 3 mL of normal saline every 8 hours. 0.9% NaCl IV Bolus 1,000 mL, at 983.61 mL/hr, Administer over 61 Minutes, NOW, 1 dose, On Sat06/04/19 at 1245 $ New Bag/Syringe 06/04/2019 1:12 PM CDT 1,000 mL 983.61 mL/hr iopamidol (ISOVUE 370) 76 % contrast Intravenous, CONTRAST ONCE, Starting on [place] 06/04/19 at 1235, Until [place] 06/04/19 at 1456 $ Given - Contrast 06/04/2019 12:56 PM CDT 100 mL morphine injection 4 mg 4 mg, Intravenous, NOW, 1 dose, On [place] 06/04/19 at 1245 $ Given 06/04/2019 1:12 PM CDT 4 mg ondansetron (ZOFRAN) injection 4 mg 4 mg, Intravenous, NOW, 1 dose, On [place] 06/04/19 at 1245, Administer over 2 to 5 minutes. $ Given 06/04/2019 1:12 PM CDT 4 mg documented in this encounter Active and Recently Administered Medications Times are shown in CDT. Scheduled Medication Order 06/02/2019 06/03/2019 06/04/2019 0.9% NaCl injection 3 mL(Linked Group 1) 3 mL, Intracatheter, EVERY 8 HOURS, First dose on Seble 06/04/19 at 1400, Until Discontinued, Flush peripheral IV catheter with 3 mL of normal saline every 8 hours. 0.9% NaCl injection 3 mL(Linked Group 2) 3 mL, Intracatheter, EVERY 8 HOURS, First dose on Seble 06/04/19 at 1400, Until Discontinued, Flush peripheral IV catheter with 3 mL of normal saline every 8 hours. 0.9% NaCl IV Bolus (COMPLETED) 1,000 mL, at 983.61 mL/hr, Administer over 61 Minutes, NOW, 1 dose, On Seble 06/04/19 at 1245 1312 ($ New Bag/Syri nge - Provider: Bang Paniagua, RN)1355 (Stopped - Provider: Bang Paniagua, RN) iopamidol (ISOVUE 370) 76 % contrast Intravenous, CONTRAST ONCE, Starting on Seble 06/04/19 at 1235, Until Seble 06/04/19 at 1456 1256 ($ Given - Cont rast - Provider: Arlen Win, RT(R)) morphine injection 4 mg (COMPLETED) 4 mg, Intravenous, NOW, 1 dose, On Seble 06/04/19 at 1245 1312 ($ Given - Prov ider: Bang Paniagua, RN) ondansetron (ZOFRAN) injection 4 mg (COMPLETED) 4 mg, Intravenous, NOW, 1 dose, On Seble 06/04/19 at 1245, Administer over 2 to 5 minutes. 1312 ($ Given - Prov ider: Bang Paniagua RN) PRN Medication Order 06/02/2019 06/03/2019 06/04/2019 0.9% NaCl injection 1-10 mL(Linked Group 1) 1-10 mL, Intracatheter, PRN, Other, peripheral line flush, Starting on Seble 06/04/19 at 1124, Until Seble 06/04/19 at 1456, Flush peripheral IV catheter with 1-10 mL of normal saline before and after medications and prn to clear blood from the line or to verify patency. 0.9% NaCl injection 1-10 mL(Linked Group 2) 1-10 mL, Intracatheter, PRN, Other, peripheral line flush, Starting on Seble 06/04/19 at 1235, Until Seble 06/04/19 at 1456, Flush peripheral IV catheter with 1-10 mL of normal saline before and after medications and prn to clear blood from the line or to verify patency. Linked Groups Order Group 1: SALINE LOCK, INSERT AND MAINTAIN (COMPLETED) Routine, CONTINUOUS, Starting on Seble 06/04/19 at 1130, Until Specified, New collection And 0.9% NaCl injection 3 mLJump to med 3 mL, Intracatheter, EVERY 8 HOURS, First dose on Seble 06/04/19 at 1400, Until Discontinued, Flush peripheral IV catheter with 3 mL of normal saline every 8 hours. And 0.9% NaCl injection 1-10 mLJump to med 1-10 mL, Intracatheter, PRN, Other, peripheral line flush, Starting on Seble 06/04/19 at 1124, Until Seble 06/04/19 at 1456, Flush peripheral IV catheter with 1-10 mL of normal saline before and after medications and prn to clear blood from the line or to verify patency. Group 2: SALINE LOCK, INSERT AND MAINTAIN (CANCELED) Routine, CONTINUOUS, Starting on Seble 06/04/19 at 1245, Until Specified, New collection And 0.9% NaCl injection 3 mLJump to med 3 mL, Intracatheter, EVERY 8 HOURS, First dose on Seble 06/04/19 at 1400, Until Discontinued, Flush peripheral IV catheter with 3 mL of normal saline every 8 hours. And 0.9% NaCl injection 1-10 mLJump to med 1-10 mL, Intracatheter, PRN, Other, peripheral line flush, Starting on Seble 06/04/19 at 1235, Until Seble 06/04/19 at 1456, Flush peripheral IV catheter with 1-10 mL of normal saline before and after medications and prn to clear blood from the line or to verify patency. documented in this encounter Care Teams Dining Chair Seat Cushion Trimmer Relationship Specialty Start Date End Date Damian Sadler MD PCP - General Internal Medicine 07/04/16 documented as of this encounter
--- OUTSIDE RECORDS SUMMARY | 2024-08-17 01:52 | XMS_ITS | Encounter Summary ---
Author Organization [facility] Address [address] [place] [address] Phone Care Team Providers Care Special Deputy Sheriff Name Role Phone Lucas Carter DO Primary Care Provider [phone] Encounter Details Date Type Department Care Team (Late st Contact Info) Description 04/21/2024 Telephone [facility] Orthopaedic Surgery [address] [facility] 2nd [address] [place] [address] Mynor Francisco MD [address] [facility] [address] [place] [address] Social History Tobacco Use Types Packs/Day Years Used Date Smoking Tobacco: Every Day Cigarettes 0.8 32.8 Started: 11/11/1991 Smokeless Tobacco: Never Alcohol Use Standard Drinks/Week Comments No 0 (1 standard drink = 0.6 oz pur e alcohol) AUDIT-C Answer Date Recorded Q1: How often do you have a drink containing alcohol? Never 04/20/2024 Q2: How many drinks containi ng alcohol do you have on a typical day when you are drinking? Patient does not drink Q3: How often do you have si x or more drinks on one occasion? Never 04/20/2024 Personal Safety Answer Date Recorded Have you ever been in or are you currently in a harmful physical or emotional relationship or is someone making you feel afraid or unsafe? Denies 04/20/2024 Comments No Sex and Gender Information Value Date Recorded Sex Assigned at Not on file Legal Sex Female 9:06 PM HEAD WAITER Gender Identity Female 10/01/2023 8:44 AM HEAD WAITER Sexual Orientation Straight 10/01/2023 8: 44 AM HEAD WAITER documented as of this encounter Miscellaneous Notes * Telephone Encounter - Elizabeth Escobar CMA - 04/21/2024 6:39 AM CDT I spoke with manuel yesterday new script has been sent to [facility]. Follow up following her my chart message below. I called patient. 78, I had my surgery today, Dr francisco sent over a prescription for hydrocodone 5mg, which the pharmacy has on backorder. The pharmacy does have 10mg hydrocodone and they have 5mg oxycodone. Can you please send over a new prescription for one of these two medications to the [facility] on [facility] in [place]. Please advise here, or call me...I also left you a message. documented in this encounter Plan of Treatment [...] home safety. documented as of this encounter Visit Diagnoses Not on filedocumented in this encounter Care Teams Special Deputy Sheriff Relationship Specialty Start Date End Date Lucas Carter DO PCP - General Internal Medicine 08/15/22 documented as of this encounter
--- OUTSIDE RECORDS SUMMARY | 2024-08-17 01:52 | XMS_ITS | Referral Summary ---
Author Organization [facility] Address [address] [place] [address] Care Team Providers Care Sports Broadcasting Internship Name Role Phone Damian Sadler MD Primary Care Provider [phone] Source Comments [facility],non-owned Affiliates and Associated Physician Practices is amultiple site organization consisting of ambulatory clinics and hospital sitesin [place], [place], [place] and [place]. This disclosure is being madepursuant to the Care Everywhere program and may not contain all information available regarding this patient. Last updated 18.[facility] Allergies Active Allergy Reactions Criticality Noted Date Comments Hydralazine Vomiting 02/02/2024 Ketorolac Itching 06/04/2019 Tramadol Urticaria Medium 08/27/2016 Medications * Be aware that medications may not be up to date on this document. Alwaysverify current medications with the patient. Medication Sig [...] 02/20/2024 9:18 AM CDT Plan of Treatment Not on file Procedures Procedure Name Priority Date/Time Associated Diagnosis [...] Resulting Agency Comment [facility]: [facility] [address] ??[facility] [id number] Nancy Cotto MD LAB - CHEMISTRY [facility] INSURANCE BILL [address] [place] [address] * (ABNORMAL) COMPREHENSIVE METABOLIC PANEL (02/03/2024 1:03 AM CDT) BUN 9 7 - 26 mg/dL 02/03/2024 1:45 AM [facility] Creatinine 0.64 0.56 - 0.96 mg/dL 02/03/2024 1:45 AM [facility] Sodium 139 136 - 145 mmol/L 02/03/2024 1:45 AM [facility] Potassium 3.4(L) 3.5 - 4.5 mmol/L 02/03/2024 1:45 AM [facility] Chloride 107 98 - 107 mmol/L 02/03/2024 1:45 AM [facility] CO2 21(L) 22 - 29 mmol/L 02/03/2024 1:45 AM [facility] Glucose 78 70 - 115 mg/dL 02/03/2024 1:45 AM [facility] Calcium 9.9 8.4 - 10.2 mg/dL 02/03/2024 1:45 AM [facility] Protein Total 7.7 6.0 - 8.3 g/dL 02/03/2024 1:45 AM [facility] Albumin 4.4 3.4 - 5.0 g/dL 02/03/2024 1:45 AM [facility] Bilirubin Total 0.4 0.2 - 1.2 mg/dL 02/03/2024 1:45 AM [facility] Alkaline Phosphatase 81 40 - 150 U/L 02/03/2024 1:45 AM [facility] ALT 58(H) 5 - 55 U/L 02/03/2024 1:45 AM [facility] AST 33 5 - 34 U/L 02/03/2024 1:45 AM [facility] Anion Gap 11 6 - 16 02/03/2024 1:45 AM [facility] BUN/Creatinine Ratio 14 7 - 23 02/03/2024 1:45 AM [facility] Osmolality Calculated 286 275 - 295 mOsm/kg 02/03/2024 1:45 AM [facility] Albumin/Globulin Ratio 1.3 1.1 - 2.3 02/03/2024 1:45 AM [facility] eGFR by CKD-EPI >90 >=90 mL/min/1.7 3 m2 02/03/2024 1:45 AM [facility] Blood BLOOD SPECIMEN / Unknown Venipuncture / Unknown 02/03/2024 1:03 AM T 02/03/2024 1:17 AM [facility] Kaylee Reyes MD LAB - CHEMISTRY [facility] Organization Address City/State/ZIP Co de Phone Number [facility] [address] [place] [address], [facility] [phone] from Last 3 Months or Most Recently Relevant to Health Maintenance Care Teams Sports Broadcasting Internship Relationship Specialty Start Date End Date Damian Sadler MD PCP - General Internal Medicine 07/04/16
--- OUTSIDE RECORDS SUMMARY | 2024-08-17 01:52 | XMS_ITS | Encounter Summary ---
Author Organization [facility] Address [address] [place] [address] Care Team Providers Care Real Estate Marketing Coordinator Name Role Phone Lucas Carter DO Primary Care Provider [phone] Reason for Visit * Auth/Cert (Routine) Specialty Diagnoses / Procedures Referred By Lluvia t Referred To Contact Diagnoses Right carpal tunnel syndrome Right carpal tunnel syndrome [G56.01] Procedures ME REVISE MEDIAN N/CARPAL TUNNEL SURG ME NEUROPLASTY &/TRANSPOS MEDIAN NRV CARPAL TUNNE RIGHT CARPAL TUNNEL RELEASE Referral ID Status Reason Start Date Expiration Date Visits Re quested Visits Authorized [id number] 1 1 Encounter Details Date Type Department Care Team (Latest Contact Info) Description 04/20/2024 11:56 AM CDT - 04/20/2024 2:41 PM CDT Hospital Encounter [facility] [address] [place] [id number] Mynor Francisco MD [address] [facility] [address] [place] [address] Right carpal tunnel syndrome (Primary Dx) Discharge Disposition: Discharge to home or self care Social History Tobacco Use Types Packs/Day Years [...] on file Legal Sex Female 9:06 PM PERSONAL SUPPORT WORKER Gender Identity Female 10/01/2023 8:44 AM PERSONAL SUPPORT WORKER Sexual Orientation Straight 10/01/2023 8: 44 AM PERSONAL SUPPORT WORKER documented as of this encounter Last Filed Vital Signs Vital Sign Reading Time Taken Comments Blood Pressure 118/85 04/20/2024 2:10 PM CDT Pulse 77 04/20/2024 2:35 PM CDT Temperature 36.4 ??C (97.5 ??F) 04/20/2024 1:45 PM CD T Respiratory Rate 12 04/20/2024 2:35 PM CDT Oxygen Saturation 99% 04/20/2024 2:35 PM CDT Inhaled Oxygen Concentration - - Weight 80.6 kg (177 lb 9.6 oz) 04/20/2024 12:17 PM CDT Height 160 cm (5' 3 ) 04/20/2024 12:17 PM CDT Body Mass Index 31.46 04/20/2024 12:17 PM CDT documented in this encounter Discharge Instructions * Discharge Instructions* Sudha Larose RN - 04/20/2024 1:38 PM CDT [facility] Hand [facility] Division Do not drive/operate heavy machinery for 24 hours. Do not make sign/authorize major decision for 24 hours. A responsible adult must be present for the first 24 hours after surgery. Have assistance with ambulation for first 24 hours after surgery Postoperative Instructions Although you are typically numb when you go home I would recommend taking Tylenol and ibuprofen on a consistent basis today and tomorrow if you normally tolerate those medications. This will keep thepain more controlled when the anesthesia wears off. POSTOPERATIVE PHYSICAL THERAPY APPOINTMENT: Not needed Dressing/Wound Care: A large dressing has been placed on [...] whenever you take a shower or bath Swelling is normal after surgery. Elevate your hand/arm so the surgical site is above your heart todecrease the swelling. Swelling is like water, it runs downhill. This is especially important for the first 72 hours after surgery. The best way to elevate your hand/arm is with your fingers pointing towards the ceiling and your hand/arm above the level of the heart. You can use pillows to help prop your hand/arm up when sitting or lying down. If you are experiencing pain, be sure you are elevating your hand/arm as often as possible. Apply an ice pack over your dressing/splint for 20 minutes of every hour for the first few days when you are awake. This can help to reduce swelling and inflammation. Be sure the ice pack is waterproof so it does not leak on the dressing/splint. A simple ice pack can be made by adding ten cubes bienvenido small amount of water in a small zip-lock bag. Seal this small bag tightly. Place this small bag in a larger zip lock bag. Apply to the area in pain. If the dressing feels too tight in spite of elevation, loosen the outer wrap but do not remove the entire dressing. ACTIVITIES: Bend and straighten the parts of your [...] hand to help them along as needed. DIET: Please feel free to eat as tolerated, no specific restrictions are needed. You may just want to start gradually as you can have some nausea after surgery. POSTOPERATIVE CARE/CONCERNS: You may experience some temporary numbness in your fingers. You should have very little to no bleeding on your dressing. Notify the office for any of the following: Excessive pain not relieved by rest, elevation, and pain medications Feeling that the dressing is too tight in spite of adequately elevating hand/arm Active bleeding through the dressing Drainage from the wound site or pin sites Foul odor from the dressing/wound Temperature greater that 101? F or chills Blue or excessively cold fingertips Numbness of the fingertips that does not improve in spite of adequately elevating hand/arm PAIN MEDICATION: Do not take any prescription pain medication on an empty stomach. You should not drive while taking narcotic pain medication Pain is a normal part of the recovery after surgery. The pain medication provided to you will help to decrease the discomfort but will not completely eliminate the pain. Your pain should decrease over the first few days after surgery which will allow you to take less pain medicine, increase the time between doses of medication, or stop taking all pain medicine Any request for medication refill will only be handled during normal business hours OFFICE CONTACT NUMBERS: DURING BUSINESS HOURS: Saturday - Saturday 8:00 - 4:30 Recording Clerk: Tania phone: [phone] AFTER HOURS/WEEKEND - EMERGENCIES ONLY (NO MEDICATION REFILLS): Medical Exchange: [phone] or toll-free Perioperative Narcotic Considerations The Orthopedic hand surgeons of [facility] manage perioperative pain as wellas the pain after an acute injury. Our surgeons do not manage chronic pain (pain three months afterthe injury/surgery), and will refer patients seeking longer term care for their painful condition to a pain management service or their primary physician as those physicians typically establish superintendent container terminal treatment relationships with patients. Following elective hand and upper extremity surgery, a prescription for an opioid-based medication may be given to the patient. ???Minor??? procedures such as carpal tunnel release, [...] to any narcotic. Prescription anti-inflammatory pain medication such as Celebrex, Indocin or Toradol can be called in to your pharmacy if ???jnvc-oly-jiynuir??? anti- inflammatory pain medication do not decrease the pain even when taken on a regular basis. These can be called in during the hours 9am to 4pm, during the workweek. ???Alternative??? treatments such as acupuncture, meditation and biofeedback can all be used to decrease post-operative pain. The Orthopedic hand surgeons of [facility] want you to be as comfortable as possible following your operation or your injury, and we want you to return to [...] and there is evidence that prolonged use mayincrease the body???s interpretation of pain. The ???opioid epidemic??? in [place] is very real, and we as physicians [...] your surgeon or his/her nurse or MA. documented in this encounter Medications at Time [...] 1 tablet (25 mg total) by mouth early childhood director 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 losartan (COZAAR) 50 mg tabletIndications:hy pertension Take 1 tablet (50 mg total) by mouth 2 (two) times a day MULTIVIT-MINERALS/FE RROUS FUM (MULTI VITAMIN ORAL)Indications:hea lth Take 1 tablet by mouth early childhood director 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 nebivoloL (BYSTOLIC) 10 mg tabletIndications:hy pertension Take 1 tablet (10 mg total) by mouth every other day 01/03/2024 omeprazole (PriLOSEC) 20 mg capsuleIndications:T reatment of Non-Bleeding Gastric Disorder Take 1 capsule (20 mg total) by mouth early childhood director 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 ondansetron ODT (ZOFRAN-ODT) 4 mg disintegrating tablet Take 1 tablet (4 mg total) by mouth every 8 (eight) hours as needed for nausea or vomiting 20 tablet 08/10/2023 pregabalin (LYRICA) 150 mg capsule Take 1 capsule (150 mg total) by mouth 2 (two) times a day 60 capsule 2 01/29/2024 4 documented as of this encounter Discharge Disposition Disposition Code Departure Means Destination Comment s Discharge to home or self care Car documented in this encounter H&P Notes * Mynor Francisco MD - 04/20/2024 1:11 PM CDT I have reviewed the H&P, examined the patient, and endorse the findings as written. Plan of Care : Based on the above findings, I consider Renee Luke to be an acceptable risk for : Procedure(s): RIGHT CARPAL TUNNEL RELEASE Source Note - Keara Cee MD - 04/20/2024 12:46 PM CDT Images from the original note were not included. Anesthesia Evaluation Renee Luke is a 44 y.o. female RIGHT CARPAL TUNNEL RELEASE (Right: Wrist) Pre-Op Diagnosis Codes: * Right carpal tunnel syndrome [G56.01] Patient Active Problem List Diagnosis Date Noted Right carpal tunnel syndrome 04/01/2024 Pyelonephritis 08/15/2022 Hypertensive urgency 08/15/2022 Acute right flank pain 11/11/2018 Strain of flank 11/11/2018 Atypical migraine 10/17/2017 Hypertension 10/17/2017 Arm weakness 08/27/2016 Leg weakness, bilateral 08/27/2016 Numbness 08/27/2016 Arachnoid cyst 06/07/2016 Degeneration of intervertebral disc of cervical region 06/07/2016 Neck pain 06/04/2016 Surgical follow-up care 02/20/2016 Female genital symptoms 01/13/2016 Torsion of ovary 01/13/2016 Abdominal pain 01/06/2016 Increased frequency of urination 01/06/2016 Pain in female pelvis 01/06/2016 Fracture of head of radius 08/31/2014 Past Medical History: Diagnosis Date GERD (gastroesophageal reflux disease) Hypertension Kidney stone Migraine Past Surgical History: Procedure Laterality Date SECTION x3 CHOLECYSTECTOMY 03/2023 ELBOW SURGERY Left 2013 HYSTERECTOMY 2016 KIDNEY SURGERY 2022 multiple procedures for Kidney stones OB History 3 Para 3 Term 3 AB Living 3 SAB IAB Ectopic Multiple Live Births 3 Allergies Allergen Reactions Ketorolac Hives and Itching Tramadol Hives and Urticaria Hydralazine Headache and Vomiting Taking? Last Dose Start Date End Date Provider amLODIPine (NORVASC) 10 mg tablet 04/19/2024 03/03/24 -- Margarita Bunch MD cyclobenzaprine (FLEXERIL) 10 mg tablet 04/19/2024 01/29/24 -- Kevin Dunn MD Take 1 tablet (10 mg total) by mouth 3 (three) times a day as needed for muscle spasms Patient taking differently: Take 1 tablet (10 mg total) by mouth 3 (three) times a day as needed for muscle spasms hydroCHLOROthiazide (HYDRODIURIL) 25 mg tablet 04/20/2024 -- -- Margarita Bunch MD losartan (COZAAR) 50 mg tablet 04/20/2024 -- -- Margarita Bunch MD MULTIVIT-MINERALS/FERROUS FUM (MULTI VITAMIN ORAL) 04/20/2024 -- -- Margarita Bunch MD nebivoloL (BYSTOLIC) 10 mg tablet 04/19/2024 01/03/24 -- ProviderMargarita MD omeprazole (PriLOSEC) 20 mg capsule 04/19/2024 -- -- ProviderMargarita MD ondansetron ODT (ZOFRAN-ODT) 4 mg disintegrating tablet Past Month 08/10/23 -- Jamila Clements PA Take 1 tablet (4 mg total) by mouth every 8 (eight) hours as needed for nausea or vomiting pregabalin (LYRICA) 150 mg capsule Past Week 01/29/24 -- Kevin Dunn MD Take 1 capsule (150 mg total) by mouth 2 (two) times a day Patient taking differently: Take 1 capsule (150 mg total) by mouth 2 (two) times a day Current Facility-Administered Medications: Lactated Ringer's (LR) infusion, 30 mL/hr, intravenous, Continuous, Last Rate: 30 mL/hr at 235, 30 mL/hr at 04/20/24 1235 scopolamine patch 72 hour 1 patch, 1 patch, transdermal, Once PRN Social History Tobacco Use Smoking Status Every Day Current packs/day: 0.75 Average packs/day: 0.8 packs/day for 32.4 years (24.3 ttl pk-yrs) Types: Cigarettes Start date: 11/11/1991 Smokeless Tobacco Never Alcohol Use: Not At Risk (04/20/2024) AUDIT-C Frequency of Alcohol Consumption: Never Average Number of Drinks: Patient does not drink Frequency of Binge Drinking: Never Substance and Sexual Activity Drug Use No Family History Problem Relation Age of Onset Hypertension Father Alcohol abuse Mother Arthritis Mother COPD Mother Depression Mother Hearing loss Mother Obesity Mother Diabetes Maternal Grandfather Heart attack Maternal Grandfather Heart disease Maternal Grandfather Hearing loss Maternal Grandmother Stroke Paternal Grandfather Obesity Sister Obesity Brother Vitals: 04/20/24 1217 04/20/24 1230 BP: 122/99 Pulse: 101 Resp: 18 Temp: 36.3 ??C (97.3 ??F) SpO2: 97% PT: No results found for requested labs within last 30 days. INR: No results found for requested labs within last 30 days. APTT: No results found for requested labs within last 30 days. Hgb A1C: No results found for requested labs within last 30 days. CBC RBC: No results found for requested labs within last 30 days. RDW: No results found for requested labs within last 30 days. MCHC: No results found for requested labs within last 30 days. MCH: No results found for requested labs within last 30 days. MCV: No results found for requested labs within last 30 days. Hct: No results found for requested labs within last 30 days. Hgb: No results found for requested labs within last 30 days. WBC: No results found for requested labs within last 30 days. MPV: No results found for requested labs within last 30 days. Platelets: No results found for requested labs within last 30 days. RDW CV: No results found for requested labs within last 30 days. RDW Sd: No results found for requested labs within last 30 days. BMP Glucose: No results found for requested labs within last 30 days. Calcium: No results found for requested labs within last 30 days. Sodium: No results found for requested labs within last 30 days. Potassium: No results found for requested labs within last 30 days. CO2: No results found for requested labs within last 30 days. Chloride: No results found for requested labs within last 30 days. BUN: No results found for requested labs within last 30 days. Creatinine: No results found for requested labs within last 30 days. DOS Physical Exam Medical history, medications, and allergies reviewed. Attestation: This PAT evaluation Airway Exam: Mallampati: II Cervical ROM: FROM Patient presents with thick neck. Cardiovascular Exam: Rate: regular Rhythm: regular Pulmonary Exam: LCTA, bilat Anesthesia Plan ASA 2 My patient is approved for the Anesthesia Controlled Medication protocol when under care of a GAMING MANAGER Planned anesthesia: Regional as primary anesthetic and IV regional Informed Consent: Anesthesia plan and risks discussed with patient. Consent and Attending signature: I and/or my designee have discussed the anesthesia plan, benefits, possible alternatives, parental presence at time of induction (if indicated), and clinically relevant risks that may include dental injury, unintentional awareness, and/or other complications. The patient and/or parent/legal guardian understand, and agree to proceed. All questions answered. * Mynor Francisco MD - 04/20/2024 12:19 PM CDT I have reviewed the H&P, examined the patient, and endorse the findings as written. Plan of Care : Based on the above findings, I consider Renee Luke to be an acceptable risk for : Procedure(s): RIGHT CARPAL TUNNEL RELEASE Source Note - Mynor Francisco MD - 04/01/2024 2:40 PM CDT CHIEF COMPLAINT Carpal tunnel syndrome HISTORY OF PRESENT ILLNESS This patient is right-hand dominant not currently working. She has been out of work since October. 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 The right side is terrible and worse than the left. She does not have diabetes. She says she got a workup with her neck showing some pinching because she has had neck pain but they did not think it explains the hand and she was recommended to come get the hand treated before the neck. She says that she has had symptoms for probably 2 years with numbness and tingling. Getting worse over the last 6 months. Left side bothers her 2 to 3 times a week the right side is constant thumbthrough long finger always numb. This has been constantly numb for about 3-4 months now. Sometimes it pain really comes through the right hand it shoots up to the elbow. She gets pains that are keeping her up at night. She also has trouble with right-sided neck pain although it does not seem to shoot down to the hands. She does have some numbness in her feet related to her vertebrae in the low jacob k. She did have a fall injuring the right side but got x-rays there was no fracture she says that is okay. She does take half of a Flexeril tablet that she was given for her back sometimes it helps the cramping in the hand at night. She also has right shoulder and neck pain that prevents her from lifting the arm easily above her head on the right side. She has been on multiple anti inflammatory medications and Lyrica. Very happy with her left elbow that I did fixation for a fracture 10 years ago. PAST MEDICAL HISTORY She has a past medical history of GERD (gastroesophageal reflux disease), Hypertension, Kidney stone, and Migraine. PAST SURGICAL HISTORY She has a past surgical history that includes Hysterectomy; section; Kidney surgery; and Cholecystectomy. INITIAL REVIEW OF MEDICATIONS She has a current medication list which includes the following prescription(s): varenicline tartrate, amlodipine, celecoxib, cyclobenzaprine, hydrochlorothiazide, losartan, multivit-min/ferrous fumarate, nebivolol, omeprazole, ondansetron odt, pregabalin, sulfamethoxazole-trimethoprim, and tamsulosin. DRUG ALLERGIES She is allergic to ketorolac, tramadol, and hydralazine. FAMILY HISTORY Her family history includes Alcohol abuse in her mother; Arthritis in her mother; COPD in her mother; Depression in her mother; Diabetes in her maternal grandfather; Hearing loss in her maternal grandmother and mother; Heart attack in her maternal grandfather; Heart disease in her maternal grandfather; Hypertension in her father; Obesity in her brother, mother, and sister; Stroke in her paternal grandfather. SOCIAL HISTORY reports that she has been smoking cigarettes. She started smoking about 32 years ago. She has a 16.2 pack-year smoking history. She has never used smokeless tobacco. She reports that she does not usedrugs. PHYSICAL EXAM The patient was alert and oriented normally. Normal affect. Skin is intact, pulses normal, and neurologically notable for constant numbness thumb through long finger on the right. No atrophy noted. Good thenar strength and interosseous strength on the right. Positive Durkan's test negative Tinel test over the carpal tunnel. At the elbow good motion negative Tinel over the cubital tunnel. Spurlingmaneuver causes pain on the right side of the neck but nothing shooting down into the hand. I did review the report of her MRI from October demonstrating some central prominent C4-5 and then some degeneration C5 through C7 but mild ASSESSMENT AND PLAN: This patient has a lot of nerve symptoms which I believe is mainly carpal tunnel syndrome right worse than left. She does have some neck pain and probably has some comorbid cervical radiculopathy in that area but really it does seem like to things that are going on. She was recommended to come see us after the neck evaluation I think it would be proper to offer a carpal tunnel release given the fact that she has been bracing for some time and still unable to sleep and having constant numbness especially on the right hand. I would start on the right side. She would like to get this done as soon as possible. She knows that the nighttime symptoms probably will improve but the numbness that is constant may take a long time to see what will happen with that. Unfortunately her mother just yesterday. They are going to have a service over the weekend she would otherwise after that like to get this done as soon as possible. I explained that this would be an outpatient surgery done under sedation and numbing the arm from the elbow down. I would make an inch and a half incision in the palm to release the pressure on the carpal tunnel. They would get a few stitches and Forrest wrap and gauze. They would keep the area clean and dry for at least a week. We would probably be protecting the hand a little bit for about a month or so from anything heavy because it would be sore. Sometimes we can get some early improvement in nerve function but other times we may be watching for up to year to see what the nerve can do in terms of healing itself. As surgeons, we can get pressure off of the nerve but there isn't any way to make the nerve heal itself so we have to see what the body can do. I know that they are always risks with surgery including this one but it is rare to see things like infection or hurting nerves or tendons or having something not heal. There can be an aching at the surgery site for many months but that is expected to resolve over time. Dr. Mynor Francisco dictating with [employer]. Wood Floor Layer variances may occur. Mynor Francisco M.D. Professor Hand and Upper Extremity Surgery [facility] documented in this encounter Miscellaneous Notes * Perioperative Nursing Note - Sudha Larose RN - 04/20/2024 1:45 PM CDT Pt in bed in lowest position locked with both side rails up, nonslip socks applied, curtain open and patient near nurses station. Pt will not be left behind curtain alone. Pt assisted in all cares inrecovery. Marcos score based on pre-op condition. 1355 Patient awake and alert, tolerating po. Friend Roberto called to bedside, will care for patient at home until patient arrives home. 1415Pt and family verbalized understanding of D/C instructions. All questions answered. Pt stated pain and nausea tolerable for D/C. No changes since previous assessment. To prepare for D/C. For 24 hrs. After surgery and while on narcotics; no driving, drinking alcohol, operating power tools or hazardous machinery or signing legal documents. Ice pack given for home use. Voided prior to discharge. * Op Note - Nolan, Mynor Gibbs MD - 04/20/2024 1:30 PM CDT SURGEON Mynor Francisco MD BEAD WORKER SEWING Nola Alarcon MD PREOPERATIVE DIAGNOSIS Right carpal tunnel syndrome. POSTOPERATIVE DIAGNOSIS Right carpal tunnel syndrome. PROCEDURE Right carpal tunnel release. ANESTHESIA Kelly block. COMPLICATIONS None. CONDITION Stable to recovery. COUNTS Correct. SPECIMENS None. FLUIDS Per the anesthesia record. EBL: None OPERATIVE FINDINGS Thick transverse carpal ligament PREOPERATIVE INDICATION This patient has had carpal tunnel syndrome on the right side. I offered them the above release [...] the operative stretcher. They underwent induction of Kelly block anesthesia with a forearm tourniquet on the right side. Prepped and draped with chlorhexidine. We [...] the forearm proximally. Contents of canal were normal although the median nerve was a bit hyperemic. The transverse carpal ligament was thickened throughout. We irrigated the wound. Closed the skin with nylon suture. Local anesthetic injected. Soft dressing applied. Tourniquet let down. The patient was taken to recovery in stable condition. I was present for the entire case. * Perioperative Nursing Note - Jana Lombardo RN - 04/20/2024 12:50 PM CDT Pt in bed in lowest position locked with both side rails up, nonslip socks applied, curtain open and patient near nurses station. Pt will not be left behind curtain alone. Pt's daughter, Roberto, with pt. Pt states will care for and remain with pt for 24 hours post surgery. * Pre-Procedure Instructions - Chasity Tafoya RN - 04/17/2024 2:37 PM CDT We are pleased that you and your doctor have chosen [facility] for your surgery. We hope the following information will help make your visit a pleasant one. The name of the building is [facility] in [place]. Directions to facility (address [address] [address] [address], [address] [facility] exit. Zip [address] When you enter the building, look directly to your left, you will see 2 glass double doors. These double doors say [address]. Go through those double doors and check in with the office receptionist. [facility] ARE NOW 120'S/80'S. Bring pillows, leave in car. Wear loose-fitting [...] to the Orthopedic center, clear liquids until 1015. Acceptable clear liquids include water, clear sports [...] out. Instructed to patient to refer to [facility] surgery guide page 6 for any questions regarding eating and drinking day of surgery. For medications that the Nurse Practitioner instructed you to take on the morning of surgery, take the medications with a few sips of water. Pt's. MANSI [phone] OR BEST FRIEND ROBERTO will be with patient and HER WILL care for patient for the first 24 hours post-op. Pt. Instructed to arrive at 1215 for 1415 procedure. Procedure is scheduled for 1/2 hour(s). [...] or purchase it from the refreshment area. documented in this encounter Plan of Treatment Not on file documented as of this encounter Goals Goal Patient Goal Type Associated Problems Recent Progress Patient-Stated? Author CCM Chronic Pain Care Plan Chronic Care Management No Steph Millard RN Note: Problem: Chronic Pain Goals: 1. Minimize [...] on stairs Contact your local community or [facility] for information on exercise, fall prevention programs, or options for improving home safety. documented as of this encounter Procedures Procedure Name Priority Date/Time Associated Diagnosis Comments RELEASE CARPAL TUNNEL 04/20/2024 1:18 PM CDT Right carpal tunnel syndrome documented in this encounter Visit Diagnoses Diagnosis Right carpal tunnel syndrome- Primary Carpal tunnel syndrome Right carpal tunnel syndrome Carpal tunnel syndrome documented in this encounter Admitting Diagnoses Diagnosis Right carpal tunnel syndrome Carpal tunnel syndrome documented in this encounter Administered Medications Inactive Administered Medications - up to 3 most recent administrations Medication Order MAR Action Action Date Dose Rate Site Lactated Ringer's (LR) infusion 30 mL/hr, intravenous, Continuous, Starting on Sat04/20/24 at 1245, Pre-Op Restarted 04/20/2024 1:38 PM CDT Rate/Dose Verify 04/20/2024 1:14 PM CDT 30 mL/h r New Bag 04/20/2024 12:35 PM CDT 30 mL/hr 30 mL/hr documented in this encounter Discontinued Medications Medication Sig Discontinue Reason Start Date End Da te celecoxib (CeleBREX) 200 mg capsule Take 1 capsule (200 mg total) by mouth daily Therapy completed 03/26/2024 04/20/2024 sulfamethoxazole-trimeth oprim (BACTRIM DS) 800-160 mg per tabletIndications:Upper Respiratory/HEENT Infection Take 1 tablet by mouth as needed Therapy completed 01/20/2024 04/20/2024 tamsulosin (FLOMAX) 0.4 mg extended release capsuleIndications:Uroli thiasis Take 1 capsule (0.4 mg total) by mouth daily as needed (Kidney stones) Therapy completed 04/20/2024 documented as of this encounter Active and Recently Administered Medications Times are shown in CDT. Continuous Medication Order 04/18/2024 04/19/2024 04/20/2024 Lactated Ringer's (LR) infusion 30 mL/hr, intravenous, Continuous, Starting on Sat04/20/24 at 1245, Pre-Op 1235 (New Bag - Prov ider: Jana Lombardo RN)1314 (Rate/Dose Verify - Provider: Janice Giles CRNA)1337 (Paused - Provider: Janice Giles CRNA - Comment: Switch to gravity)1338 (Restarted - Provider: Janice Giles CRNA)1340 (Anesthesia Volume Adjustment - Provider: Janice Giles CRNA)1345 (Stopped - Provider: Sudha Larose RN) Lactated Ringer's (LR) infusion 125 mL/hr, intravenous, Continuous, Starting on Sat04/20/24 at 1430, Phase I 1345 (Continued from OR - Provider: Sudha Larose RN)1430 (Due)1435 (Stopped - Provider: Sudha Larose RN) PRN Medication Order 04/18/2024 04/19/2024 04/20/2024 BUPivacaine (MARCAINE) 0.5 % (5 mg/mL) preservative free injection (CANCELED) As needed, Starting on Sat04/20/24 at 1339, Intra-Op 1339 (Given - Provid er: Mynor Francisco MD) diphenhydrAMINE (BENADRYL) 50 mg/mL injection 12.5 mg 12.5 mg, intravenous, Administer over 1 Minutes, Every 5 min PRN, itching, other, For Nausea, administer 25 mg IV., Starting on Sat04/20/24 at 1350, For 4 doses, Phase I, Max cumulative dose 50 mg., Indications: Itching fentaNYL (SUBLIMAZE) preservative free syringe 25 mcg 25 mcg, intravenous, Every 10 min PRN, 1st line for pain, Starting on Sat04/20/24 at 1350, For 4 doses, Phase I, Notify anesthesiologist if total PACU dose reaches 100 mcg AND pain score 5/10 or more. When patient able to tolerate PO, proceed to 2nd line analgesic agent for pain management., Indications: Pain hydrALAZINE (APRESOLINE) injection 5 mg 5 mg, intravenous, Administer over 2 Minutes, Every 5 min PRN, high blood pressure, Starting on Sat04/20/24 at 1350, Phase I, Max cumulative dose 20 mg. Dose if systolic BP greater than 180 AND heart rate less than 70., Indications: hypertension HYDROcodone-acetaminophen (NORCO) 5-325 mg per tablet 1 tablet 1 tablet, oral, Every 30 min PRN, 2nd line for pain, Starting on Sat04/20/24 at 1350, For 2 doses, Phase I, Indications: Pain labetaloL (NORMODYNE,TRANDATE) injection 5 mg 5 mg, intravenous, Every 5 min PRN, high blood pressure, Starting on Sat04/20/24 at 1350, For 4 doses, Phase I, Max cumulative dose 20 mg. Dose if systolic blood pressure greater than 180 AND HR greater than 70. meperidine (DEMEROL) preservative free injection 12.5 mg 12.5 mg, intravenous, Administer over 5 Minutes, Every 10 min PRN, shivering, Starting on Sat04/20/24 at 1350, For 2 doses, Phase I, Max cumulative dose 25 mg., Indications: Shivering naloxone (NARCAN) 0.4 mg/mL injection 0.04-0.4 mg 0.04-0.4 mg, intravenous, Once as needed, other, excessive sedation/respiratory depression, Starting on Sat04/20/24 at 1350, For 1 dose, Phase I, Dilute 0.4 [...] Once as needed, nausea, vomiting, Starting on Sat04/20/24 at 1350, For 1 dose, Phase I, Proceed to prochlorperazine if ondansetron has been given within the last 6 hours. prochlorperazine (COMPAZINE) injection 5 mg 5 mg, intravenous, Administer over 2 Minutes, Once as needed, nausea, vomiting, May give second 5 mg dose if nausea not improved after 15 minutes., Starting on Sat04/20/24 at 1350, For 2 doses, Phase I, If nausea/vomiting not relieved by ondansetron within 30 minutes or if ondansetron has been given within the last 6 hours. scopolamine patch 72 hour 1 patch 1 patch, transdermal, Administer over 72 Hours, Once as needed, Apply only after consulting Anesthesiologist, Starting on Sat04/20/24 at 1214, For 1 dose, Pre-Op, Please place for all shoulder surgeries, patients with history of PONV and Motion Sickness, unless history of BPH, urinary retention, or Glaucoma., Indications: Prevention of Post-Operative Nausea and Vomiting sodium chloride 0.9% irrigation (CANCELED) As needed, Starting on Sat04/20/24 at 1335, Intra-Op 1335 (Given - Provid er: Mynor Francisco MD) documented in this encounter Orders Medications Ordered That Noe ht Not Have Been Administered Count Last Ordered Date First Ordered Date BUPivacaine (MARCAINE) 0.5 % (5 mg/mL) preservative free injection 1 04/20/2024 diphenhydrAMINE (BENADRYL) 5 0 mg/mL injection 12.5 mg 1 04/20/2024 fentaNYL (SUBLIMAZE) preserv ative free syringe 25 mcg 1 04/20/2024 hydrALAZINE (APRESOLINE) injection 5 mg 1 0 04/20/2024 HYDROcodone-acetaminophen (N ORCO) 5-325 mg per tablet 1 tablet 1 04/20/2024 labetaloL (NORMODYNE,TRANDAT E) injection 5 mg 1 04/20/2024 Lactated Ringer's (LR) infusion 1 meperidine (DEMEROL) preserv ative free injection 12.5 mg 1 04/20/2024 naloxone (NARCAN) 0.4 mg/mL injection 0.04-0.4 mg 1 04/20/2024 ondansetron (ZOFRAN) injection 4 mg 1 04/20 prochlorperazine (COMPAZINE) injection 5 mg 1 04/20/2024 scopolamine patch 72 hour 1 patch 1 024 sodium chloride 0.9% irrigation 1 4 documented in this encounter Care Teams Real Estate Marketing Coordinator Relationship Specialty Start Date End Date Lucas Carter DO PCP - General Internal Medicine 08/15/22 documented as of this encounter
--- OUTSIDE RECORDS SUMMARY | 2024-08-17 01:52 | XMS_ITS | Encounter Summary ---
Author Organization [facility] Address [address] [place] [address] Care Team Providers Care Serging Machine Operator Name Role Phone Unknown, Provider Primary Care Provider Unavaila ble Encounter Details Date Type Department Care Team (Latest Contact Info) Description 08/31/2009 9:54 AM REDUCING MACHINE OPERATOR - 08/31/2009 11:59 PM REDUCING MACHINE OPERATOR Hospital Encounter HC EVAL/TRTMNT [address] [place] [address] Arvin Anderson MD [address] [place] [address] Obstetrics Discharge Disposition: Home or Self Care Social History Tobacco Use Types Packs/Day Years Used Date Smoking Tobacco: Never Assessed Sex and Gender Information Value Date Recorded Sex Assigned at Not on file Gender Identity Not on file Sexual Orientation Not on file documented as of this encounter Progress Notes * Cynthia Cabrales - 08/31/2009 11:40 AM CST Genetic counseling for risk of Down syndrome and family history of congenital heart defect. See Letters. CING MACHINE OPERATOR * Document, Scanned - 08/31/2009 12:00 AM REDUCING MACHINE OPERATOR documented in this encounter Procedure Notes * Sis Amaro RN - 08/31/2009 12:32 PM CST Patient was seen on 08/31/2009 for ultrasound order# [id number] CING MACHINE OPERATOR documented in this encounter Consult Notes * Destinee King S - 10/25/2009 2:51 PM CDT Amnio results are normal, 46XX. Result communicated to patient on 09/20/09. Please see result letter. documented in this encounter Miscellaneous Notes * Miscellaneous Scans - Document, Scanned - 08/31/2009 12:00 AM REDUCING MACHINE OPERATOR * Miscellaneous Scans - Document, Scanned - 08/31/2009 12:00 AM REDUCING MACHINE OPERATOR documented in this encounter Plan of Treatment Pending Results Name Type Priority Associated Diagnoses Date /Time SONOGRAM - COMPLETE [facility] MED Routine 08/31/2009 documented as of this encounter Procedures Procedure Name Priority Date/Time Associated Diagnosis Comments CHROMOSOME ANALYSIS AMNIOTIC FLUID STAT 08/31/2009 12:00 PM REDUCING MACHINE OPERATOR Unspecified Complication of , Antepartum (HCC) SONOGRAM - COMPLETE Routine 08/31/2009 documented in this encounter Results * CHROMOSOME ANALYSIS AMNIO PANEL (08/31/2009 12:00 PM REDUCING MACHINE OPERATOR) Chromosome Analysis Amniotic Fluid See Scanned Report [facility] Comment Amniotic Fluid [facility] AMNIOTIC FLUID SPECIMEN / Unknown 08/31/2009 12:00 PM REDUCING MACHINE OPERATOR 08/31/2009 12:40 PM REDUCING MACHINE OPERATOR Arvin Anderson MD LAB - PATHOLOGY/CYTO LOGY ORDERABLES [facility] [address] [place] [address] documented in this encounter Visit Diagnoses Diagnosis Unspecified complication of , antepartum (HCC) Unspecified complication of , antepartum documented in this encounter Care Teams Serging Machine Operator Relationship Specialty Start Date End Date Unknown, Provider PCP - General 08/31/09 12/29/13 documented as of this encounter
--- OUTSIDE RECORDS SUMMARY | 2024-08-17 01:52 | XMS_ITS | Clinical Summary ---
Author Organization [facility] al Address [address] [place] [address] Care Team Providers Care Hobbing Press Operator Name Role Phone Lucas Carter DO Primary Care Provider [phone] Allergies Active Allergy Reactions Criticality Noted Date Comments Hydralazine Headache,Vomiting Low 01/21/2024 Ketorolac Hives,Itching Medium 10/17/2017 Tramadol Hives,Urticaria Medium 08/27/2016 Medications omeprazole (PriLOSEC) 20 mg capsuleIndications :Treatment of Non-Bleeding Gastric Disorder Take 1 capsule (20 mg total) by mouth machine sander 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 Active MULTIVIT-MINERALS/ FERROUS FUM (MULTI VITAMIN ORAL)Indications:h ealth Take 1 tablet by mouth machine sander 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 Active ondansetron ODT (ZOFRAN-ODT) 4 mg disintegrating tablet Take 1 tablet (4 mg total) by mouth every 8 (eight) hours as needed for nausea or vomiting 20 tablet 08/10/20 23 Active losartan (COZAAR) 50 mg tabletIndications: hypertension Take 1 tablet (50 mg total) by mouth 2 (two) times a day Active hydroCHLOROthiazid e (HYDRODIURIL) 25 mg tabletIndications: hypertension Take 1 tablet (25 mg total) by mouth machine sander 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 Active nebivoloL (BYSTOLIC) 10 mg tabletIndications: hypertension Take 1 tablet (10 mg total) by mouth every other day 01/03/20 24 Active cyclobenzaprine (FLEXERIL) 10 mg tablet Take 1 tablet (10 mg total) by mouth 3 (three) times a day as needed for muscle spasms 90 tablet 1 01/29/20 24 Active Additional Information Patient taking differently:10 mg oral 3 times daily PRN, muscle spasms,Indications: Muscle Spasm, Informant: Self, Reported on 06/23/2024 amLODIPine (NORVASC) 10 mg tabletIndications: hypertension Take 1 tablet (10 mg total) by mouth nightly 03/03/20 Active pregabalin (LYRICA) 150 mg capsule TAKE 1 CAPSULE(150 MG) BY MOUTH TWICE DAILY 60 capsule 3 05/08/20 24 Active Additional Information Patient taking differently: 150 mg oral 2 times daily PRN, neuropathy, Informant: Self, Reported on 06/29/2024 ibuprofen 200 mg tab/cap Take 2 tablet/capsule (400 mg total) by mouth every 6 (six) hours as needed for pain Active HYDROcodone-acetam inophen (NORCO) 5-325 mg per tabletIndications: Pain Take 1 tablet by mouth every 6 (six) hours as needed for pain 8 tablet 07/01/20 24 Active Active Problems Problem Noted Date Diagnosed Date Left carpal tunnel syndrome 06/22/2024 Right carpal tunnel syndrome 04/01/2024 Pyelonephritis 08/15/2022 [...] 01/06/2016 Fracture of head of radius 08/31/2014 Encounters Date Type Department Care Team Description 07/07/2024 10:10 AM TECHNICIANS AND TRADES WORKERS Office Visit [facility] Orthopaedic Surgery [address] [place] [address] Floor [address] [place] [phone] Mynor Francisco MD Carpal tunnel syndrome, bilateral (Primary Dx) 07/01/2024 Orders Only [facility] Orthopaedic Surgery [address] [place] [address] Floor [address] [place] [address] Mynor Francisco MD 06/29/2024 9:01 AM TECHNICIANS AND TRADES WORKERS Anesthesia Event [facility] [address] [place] [id number] Mynor Perez MD Sargent, Brooke Lynae, NP 06/29/2024 9:00 AM TECHNICIANS AND TRADES WORKERS - 06/29/2024 9:30 AM TECHNICIANS AND TRADES WORKERS Surgery [facility] [address] [place] [id number] Mynor Francisco MD LEFT CARPAL TUNNEL RELEASE 06/29/2024 7:02 AM TECHNICIANS AND TRADES WORKERS - 06/29/2024 10:31 AM TECHNICIANS AND TRADES WORKERS Hospital Encounter [facility] [address] [place] [phone] Mynor Francisco MD Left carpal tunnel syndrome (Primary Dx) Discharge Disposition: Discharge to home or self care from Last 3 Months Immunizations Name Administration Dates Next Due Influenza, Trivalent, Preservative Free, Intramu scular 05/12/2015 Surgical History Surgery Date Site/Laterality Comments HYSTERECTOMY 08/12/2015 - 08/11/2016 SECTION x3 KIDNEY SURGERY 08/12/2022 - 08/11/2023 multiple procedures for Kidney stones CHOLECYSTECTOMY 03/12/2023 - 04/11/2023 ELBOW SURGERY 08/12/2012 - 08/11/2013 Left CARPAL TUNNEL RELEASE 04/12/2024 - 05/11/2024 Right Medical History Medical History Date Comments Hypertension Migraine GERD (gastroesophageal reflux disease) Kidney stone Family History Medical History Relation Name Comments Obesity Brother Dusty Hypertension Father Israel Diabetes Maternal Grandfather Beka Sr. Heart attack Maternal Grandfather Beka Sr. Heart disease Maternal Grandfather Beka Sr. Hearing loss Maternal Grandmother [place] Alcohol abuse Mother Melodye Arthritis Mother Melodye COPD Mother Melodye Depression Mother Melodye Hearing loss Mother Melodye Obesity Mother Melodye Stroke Paternal Grandfather Dusty Obesity Sister Sarai Relation Name Status Comments Brother Dusty Father Israel Maternal Grandfather Beka Sr. Maternal Grandmother Cinthya Mother Melodye Paternal Grandfather Dusty Sister Sarai Social History Tobacco Use Types Packs/Day Years Used Date Smoking Tobacco: Every Day Cigarettes 0.8 32.8 Started: 11/11/1991 Smokeless Tobacco: Never Tobacco Cessation:Ready to Q [...] on file Legal Sex Female 9:06 PM TECHNICIANS AND TRADES WORKERS Gender Identity Female 10/01/2023 8:44 AM TECHNICIANS AND TRADES WORKERS Sexual Orientation Straight 10/01/2023 8: 44 AM TECHNICIANS AND TRADES WORKERS Obstetrics History Para Term AB IAB SAB Ectopic Multiple Livin g Live Births 3 3 3 3 3 Date Outcome GA Total Labor Labor/2nd/3rd Weight Sex Type Anes PTL Marcie A1 A5 Name Clin 2000 Term F CS-Un spec Living Complications:Gestational hy pertension 2001 Term M CS-Un spec Living Complications:None 2009 Term F CS-Un spec Living Complications:None Last Filed Vital Signs Vital Sign Reading Time Taken Comments Blood Pressure 125/82 06/29/2024 10:05 AM TECHNICIANS AND TRADES WORKERS Pulse 75 06/29/2024 10:05 AM TECHNICIANS AND TRADES WORKERS Temperature 36.2 ??C (97.2 ??F) 06/29/2024 9:28 AM CS T Respiratory Rate 15 06/29/2024 10:0 5 AM TECHNICIANS AND TRADES WORKERS Oxygen Saturation 96% 06/29/2024 10: 05 AM TECHNICIANS AND TRADES WORKERS Inhaled Oxygen Concentration - - Weight 83.4 kg (183 lb 12.8 oz) 06/29/2024 7:50 AM TECHNICIANS AND TRADES WORKERS Height 160 cm (5' 3 ) 06/29/2024 7:50 AM TECHNICIANS AND TRADES WORKERS Body Mass Index 32.56 06/29/2024 7:50 AM TECHNICIANS AND TRADES WORKERS Plan of Treatment Health Maintenance Due Date Last Done Comments Breast Cancer Screening-Mammogram 1979 Colon Cancer Screening-Colonoscopy 1979 Depression Screening 1979 Hepatitis C Screening 1979 Pneumococcal vaccine <65 (1 of 2 - PCV) 1985 DTaP/Tdap/Td Vaccine (1 - Tdap) 1990 Hepatitis B Screening 1997 Regular Well Visit/Exam 18-64 10/08/2020 10/08/2019 Influenza Vaccine (#1) 2024 5, 05/12/2015 HPV Vaccines Aged Out No longer eligi ble based on patient's age to complete this topic Goals Goal Patient Goal Type Associated Problems Recent Progress Patient-Stated? Author CCM Chronic Pain Care Plan Chronic Care Management No Steph Millard, RN Note: Problem: Chronic Pain Goals: 1. Minimize further functional decline 2. Maximize quality of life 3. Control pain Strategies: - Activity/exercise program recommendation - Conservative stepwise pain medicine strategy with multi-disciplinary approach - Recommend healthy lifestyle strategies and compensatory methods as needed Reduce the likelihood of falling Lifestyle No Steph Millard, RN Note: Below are four things you can [...] programs, or options for improving home safety. Medical Devices Implanted Type Area Student Support Advisor Device Identifier Shelf Expiration Date Model / Serial / Lot Screw Left: Elbow Procedures Procedure Name Priority Date/Time Associated Diagnosis Comments AK AN PROCEDURE PLACEHOLDER Routine 06/29/2024 9:09 AM TECHNICIANS AND TRADES WORKERS RELEASE CARPAL TUNNEL 06/29/2024 9:03 AM TECHNICIANS AND TRADES WORKERS Left carpal tunnel syndrome POCT PREOP SCREEN ([id number]) Routine 06/29/2024 8:12 AM TECHNICIANS AND TRADES WORKERS from Last 3 Months Results * AK AN PROCEDURE PLACEHOLDER (06/29/2024 9:09 AM TECHNICIANS AND TRADES WORKERS) Narrative Priscilla Connolly CRNA - 06/29/2024 9:09 AM TECHNICIANS AND TRADES WORKERS Priscilla Connolly CRNA ? 06/29/2024 ??9:10 AM Kelly Block Anesthesia Reason for block: primary anesthetic Staff: Placed by: BURIAL NEEDS SALESPERSON: Priscilla Connolly CRNA Procedure prep: Preprocedure checklist: ??patient identified, patient appropriate for plan, informed consent obtained, surgical consent, risks and benefits discussed, monitors and equipment checked and timeout performed Prep solution: chlorhexadine/alcohol [place] block: Site: left upper extremity Medication injected through: IV placed preoperatively IV gauge: 22g Procedure details: tourniquet - single cuff, esmarch applied to extremity, tourniquet inflation verified, local anesthetic injected, injection IV removed and patient tolerated procedure well Assessment: Events: patient tolerated procedure well without complications us Mynor Perez MD ANESTHESIA ORDERABLES Final Resu lt * POCT Preop screen ([id number]-Hct) (06/29/2024 8:12 AM TECHNICIANS AND TRADES WORKERS) [facility] K POC 3.7 3.3 - 4.9 mmol/L Comment: Interpretive Data This method is not able to assess for hemolysis, which may falsely increase potassium concentrations. If further testing is needed to evaluate this result, consider in-laboratory plasma potassium. Current Interpretive Data was last revised on 2022. Blood 06/29/2024 8:12 AM TECHNICIANS AND TRADES WORKERS 06/29/2024 8:12 AM TECHNICIANS AND TRADES WORKERS us Mynor Francisco MD LAB POCT ORDERABLES - DEV ICE Final Result [facility] Department [place] [address] from Last 3 Months Insurance IDPA [facility] CHOICE PLUS [facility] Advance Directives For more information, please contact: [phone] * Full Code (Latest Code Status on File) Date Activated Date Inactivated Comments 08/15/2022 3:10 PM 08/18/2022 6:09 PM Care Teams Hobbing Press Operator Relationship Specialty Start Date End Date Lucas Carter DO PCP - General Internal Medicine 08/15/22
--- OUTSIDE RECORDS SUMMARY | 2024-08-17 01:52 | XMS_ITS | Encounter Summary ---
Author Organization [facility] Address [address] [place] [address] Phone Care Team Providers Care Supervisor Cytogenetic Laboratory Name Role Phone Lucas Carter DO Primary Care Provider [phone] Encounter Details Date Type Department Care Team (Late st Contact Info) Description 07/07/2024 10:10 AM TOP COLLAR MAKER Office Visit [facility] Orthopaedic Surgery [address] [place] [address] Mynor Francisco MD [facility] [place] [address] Carpal tunnel syndrome, bilateral (Primary Dx) Social History Tobacco Use Types Packs/Day Years [...] on file Legal Sex Female 9:06 PM TOP COLLAR MAKER Gender Identity Female 10/01/2023 8:44 AM TOP COLLAR MAKER Sexual Orientation Straight 10/01/2023 8: 44 AM TOP COLLAR MAKER documented as of this encounter Progress Notes * Mynor Francisco MD - 07/07/2024 10:10 AM CST SUBJECTIVE 44-year-old female returning for follow up after left carpal tunnel release on 06/29/2024. She reports no issues postoperatively. She did not use any pain medications. She says that her other incision from her prior contralateral carpal tunnel was somewhat slow to heal. She has had more swelling and bruising with the surgery though is able to move her hand better than the previous and better thanshe was doing on the right side after surgery. PHYSICAL EXAM The patient was alert and oriented normally. Normal affect. Her incision is healing well with no surrounding erythema or warmth. There is no drainage. She has a DPC of 0 in his moving her fingers very well. Her sensation is intact to light touch. Her fingers are warm and well perfused. ASSESSMENT AND PLAN 44-year-old female status post left carpal tunnel release on 06/29/2020 104. We discussed that she is doing very well. She may begin to shower and wash her hands. She may let water run over her incisions but should not scrub in to them or do any soaking. Once her wound is well healed, she may beginscar massage. She can progress her activity as tolerated but should take it easy over the next couple weeks to allow her incision to heal. All questions were answered. We will see her back as needed. Rylie Poole MD Orthopaedic Surgery PGY-3 I was present for the critical portion of the history, physical examination and all radiographic studies were personally interpreted by me and I determined the diagnosis and treatment plan and communicated them to the patient. I agree with this report which was generated with the assistance of Dr. Tom. Mynor Francisco MD COLLAR MAKER documented in this encounter Plan of Treatment [...] on stairs Contact your local community or [facility] for information on exercise, fall prevention programs, or options for improving home safety. documented as of this encounter Visit Diagnoses Diagnosis Carpal tunnel syndrome, bilateral- Primary Carpal tunnel syndrome documented in this encounter Care Teams Supervisor Cytogenetic Laboratory Relationship Specialty Start Date End Date Lucas Carter DO PCP - General Internal Medicine 08/15/22 documented as of this encounter
--- OUTSIDE RECORDS SUMMARY | 2024-08-17 01:52 | XMS_ITS | Encounter Summary ---
Author Organization [facility] Address [address] [place] [address] Care Team Providers Care Practical Nursing Teacher Name Role Phone Damian Sadler MD Primary Care Provider [phone] Reason for Visit * Reason Comments Pain Back pt c/o of chronic ba ck pain that is worse today than usual after moving over the weekend. pt also c/o of numbness that she sometimes gets from her back pain that is worse. pt states he does not have feeling in her R lower leg or L foot. Encounter Details Date Type Department Care Team (Late st Contact Info) Description 08/26/2019 11:54 AM NUTRITION CLUB AMBASSADOR - 08/26/2019 1:02 PM [facility] Emergency [facility] EMERGENCY DEPARTMENT [address] [place] [address] Rocio Thompson MD [facility] [facility] [place] [address] Exacerbation of chronic back pain; Sciatica of right side Discharge Disposition: Home or Self Care Social [...] Sign Reading Time Taken Comments Blood Pressure 184/100 08/26/2019 1:01 PM NUTRITION CLUB AMBASSADOR Pulse 75 08/26/2019 1:01 PM NUTRITION CLUB AMBASSADOR Temperature 36.7 ??C (98.1 ??F) 08/26/2019 8:36 AM CS T Respiratory Rate 18 08/26/2019 1:01 PM NUTRITION CLUB AMBASSADOR Oxygen Saturation 99% 08/26/2019 1:01 PM NUTR[facility]UB AMBASSADOR Inhaled Oxygen Concentration - - Weight 79.4 kg (175 lb) 08/26/2019 8:36 AM NUTRITION CLUB AMBASSADOR Height 160 cm (5' 3 ) 08/26/2019 8:36 AM NUTRITION CLUB AMBASSADOR Body Mass Index 31 08/26/2019 8:36 AM NUTRITION CLUB AMBASSADOR documented in this encounter Discharge Instructions * Attachments The following attachments cannot be sent through Care Everywhere. * Back Pain (AfterCare(R) Instructions(ER/ED)) (Namibian) * Sciatica (General Information) (Namibian) documented in this encounter Medications at Time [...] as of this encounter ED Notes * Pili Ferguson, KHADAR - 08/26/2019 1:02 PM CST Pt to be discharged at this time. Given D/C paperwork. Pt educated on follow up and signs and symptoms to require return trip to ED. All questions answered. Pt verbalized understanding. Pt visualizedambulating out of department with steady gait. [employer] AMBASSADOR * Rocio Thompson MD - 08/26/2019 11:55 AM CST Renee Luke [id number] [facility] EM[facility]PART[facility] History Chief Complaint Patient presents with ??? Pain Back pt c/o of chronic back pain that is worse today than usual after moving over the weekend. pt also c/o of numbness that she sometimes gets from her back pain that is worse. pt states he does not have feeling in her R lower leg or L foot. Sis Luke is a 39-year-old female with a PMHx of HTN, migraines and chronic back pain presents today with constant sharp central back pain, numbness, and bilateral LE swelling for the past 4 days. Denies injury, heavy lifting. Patient states she has had chronic back pain for the past 3 years. Called PCP but unable to get in because he is out of town . She has tried Ibuprofen without relief. Last took 800mg at 8am with no relief. She has numbness in lower extremities with R>L, and abdominal pain described as squeezing with breathing. She has had prior similar back pain 3 months ago Shedenies, bowel or bladder incontinence. No focal weakness.. Smokes half a pack a day, denies alcohol. These symptoms are effecting her sleep. She has tingling, right foot numbness, and left toe numbness. Denies saddle anesthesia, CP, SOB, blood in the urine, dysuria, fever, chills, weight loss. Past Medical History: Diagnosis Date ??? Hypertension ??? Migraine headache pressure ??? Tension headache Past Surgical History: Procedure Laterality Date ??? Section ??? Section ??? Section ??? ELBOW PROCEDURE/SURGERY Left 2 SCREWS ??? Hysterectomy Right Family History Problem Relation Name Age of Onset ??? Hypertension Mother ??? [...] file Gets together: Not on file Attends voodoo service: Not on file Active member of [...] Review of Systems Review of Systems Constitutional: Negative. HENT: Negative. Eyes: Negative. Respiratory: Negative. Negative for shortness of breath. Cardiovascular: Negative. Negative for chest pain and palpitations. Gastrointestinal: Negative. Negative for blood in stool and diarrhea. Genitourinary: Negative. Negative for dysuria, frequency, hematuria and urgency. Musculoskeletal: Positive for back pain. Negative for falls. Skin: Negative. Neurological: Positive for tingling. Negative for dizziness, speech change and focal weakness. Numbness R foot, L toe. Endo/Heme/Allergies: Negative. Psychiatric/Behavioral: Negative. Negative for substance abuse. Physical Exam BP (!) 194/116 Pulse 77 Temp 98.1 ??F (36.7 ??C) (Oral) Resp 20 Ht 1.6 m (5' 3 ) Wt 79.4 kg (175 lb) SpO2 98% BMI 31.00 kg/m?? Physical Exam Constitutional: She is oriented to person, place, and time. She appears well- developed and well-nourished. No distress. HENT: Head: Normocephalic and atraumatic. Mouth/Throat: Oropharynx is clear and moist. Eyes: Pupils are equal, round, and reactive to light. EOM are normal. Neck: Normal range of motion. Neck supple. No c-spine tenderness Cardiovascular: Normal rate, regular rhythm, normal heart sounds and intact distal pulses. Pulmonary/Chest: Effort normal and breath sounds normal. She exhibits no tenderness. Abdominal: Soft. There is no tenderness. There is no guarding. Musculoskeletal: Normal range of motion. She exhibits no edema, tenderness or deformity. No spine tenderness/step-offs Neurological: She is alert and oriented to person, place, and time. No cranial nerve deficit or sensory deficit. She exhibits normal muscle tone. Coordination normal. Sensation is intact and symmetrical to touch, MS 5/5 and sym., patellar reflexes 1+and sym., c/o tingling in right LE and toe (subjective) Skin: Skin is warm and dry. No rash noted. She is not diaphoretic. Psychiatric: She has a normal mood and affect. Her behavior is normal. Medications Current Outpatient Medications Medication Sig Dispense Refill ??? acetaminophen-codeine (TYLENOL #3) 300-30 MG tablet Take 1-2 Tabs by mouth every 4 hours as needed Reported on 08/27/2016 0 ??? gabapentin (NEURONTIN) 100 MG capsule Take 1 Cap by mouth 3 times daily (Patient not taking: Reported on 08/26/2019) 270 Cap 3 ??? HYDROcodone-acetaminophen (NORCO) 5-325 [...] hours as needed Reported on 08/27/2016 0 Lab Interpretation Oxygen Saturation Interpretation The oxygen saturation level is: 98%. The patient was on Room Air for the saturation measurement. Measurement frequency: Spot Check. Oxygen saturation interpretation is Normal. No results found for this visit on 08/26/19. No orders to display Progress Notes A: 39 year old female with chronic back pain and HTN here with c/o subjective feeling of leg swelling, exacerbation of back pain and radiating tingling c/w with sciatic. Plan: PE unremarkable. Has been treated with steroids in the past for the pain. Would like pain meds. Offered pain meds and an injection of steroids to decrease inflammation and pain. Recommended that she call her PCP's office and possible see the person covering for her PCP. Patient is agreeable to this plan. Also advised cool or warm compresses or topical analgesia as needed. ED Course Clinical Impressions as of Aug 26 1243 Exacerbation of chronic back pain Sciatica of right side Orders Placed This Encounter ??? HIV-1 HIV-2 ANTIGEN/ANTIBODY ??? predniSONE (DELTASONE) tablet 20 mg ??? acetaminophen (TYLENOL) tablet 975 mg ??? DISCONTD: lidocaine (LIDODERM) 5 % patch 1 patch Disposition Discharge [employer] AMBASSADOR documented in this encounter Plan of Treatment Not on file documented as of this encounter Visit Diagnoses Diagnosis Exacerbation of chronic back pain Backache, unspecified Sciatica of right side Sciatica Dorsalgia, unspecified Other chronic pain documented in this encounter Administered Medications Inactive Administered Medications - up to 3 most recent administrations Medication Order MAR Action Action Date Dose Rate Site acetaminophen (TYLENOL) tablet 975 mg 975 mg, Oral, NOW, 1 dose, On Sat08/26/19 at 1245 $ Given 08/26/2019 12:43 PM NUTRITION CLUB AMBASSADOR 975 mg lidocaine (LIDODERM) 5 % patch 1 patch 1 patch, Administer over 12 Hours, NOW, 1 dose, On Sat08/26/19 at 1245, Apply to affected area and remove patch after a max of 12 hours of application within a 24 hour period. $ Applied 08/26/2019 12:44 PM NUTRITION CLUB AMBASSADOR 1 patch Back predniSONE (DELTASONE) tablet 20 mg 20 mg, Oral, NOW, 1 dose, On Sat08/26/19 at 1245 $ Given 08/26/2019 12:43 PM NUTRITION CLUB AMBASSADOR 20 mg documented in this encounter Active and Recently Administered Medications Times are shown in NUTRITION CLUB AMBASSADOR. Scheduled Medication Order 08/24/2019 08/25/2019 08/26/2019 acetaminophen (TYLENOL) tablet 975 mg (COMPLETED) 975 mg, Oral, NOW, 1 dose, On Sat08/26/19 at 1245 1243 ($ Given - Prov ider: Pili Ferguson RN) lidocaine (LIDODERM) 5 % patch 1 patch 1 patch, Administer over 12 Hours, NOW, 1 dose, On Sat08/26/19 at 1245, Apply to affected area and remove patch after a max of 12 hours of application within a 24 hour period. 1244 ($ Applied - Pr ovider: Pili Ferguson RN) predniSONE (DELTASONE) tablet 20 mg (COMPLETED) 20 mg, Oral, NOW, 1 dose, On Sat08/26/19 at 1245 1243 ($ Given - Prov ider: Pili Ferguson RN) documented in this encounter Care Teams Practical Nursing Teacher Relationship Specialty Start Date End Date Damian Sadler MD PCP - General Internal Medicine 07/04/16 documented as of this encounter
--- OUTSIDE RECORDS SUMMARY | 2024-08-17 01:52 | XMS_ITS | Encounter Summary ---
Author Organization [facility] Healthcare Address [address] [place] [address] Care Team Providers Care Shredder Picker Name Role Phone Lucas Carter DO Primary Care Provider [phone] Reason for Visit * Auth/Cert (Routine) Specialty Diagnoses / Procedures Referred By Contac t Referred To Contact Diagnoses Left carpal tunnel syndrome Left carpal tunnel syndrome [G56.02] Procedures [place] REVISE MEDIAN N/CARPAL TUNNEL SURG LEFT CARPAL TUNNEL RELEASE Referral ID Status Reason Start Date Expiration Date Visits Re quested Visits Authorized [id number] 1 1 Encounter Details Date Type Department Care Team (Late st Contact Info) Description 06/29/2024 9:01 AM CHILD SPECIALIST Anesthesia Event [facility] [address] [place] [id number] Mynor Perez MD [address] [place] [address] Blanquita Centeno NP [address] [facility] [id number] [place] [address] Anesthesia Record Procedure Summary Procedure Name Responsible Anesthesiologist Anesthesia Start Time Anesthesia Stop Time LEFT CARPAL TUNNEL RELEASE (Left: Wrist) Mynor Perez MD 06/29/24 0901 06/29/24 0929 Events Date Time Event Comment 06/29/2024 0842 0842 AN Equip Check 0901 An Start 0903 An Start Data 0903 In Room 0904 Start Supplemental O2 0904 Time out - Regional 0904 An Block Induction The patie nt was reevaluated immediately before moderate or deep sedation and before anesthesia induction. 0907 Mecca block placed 09 Anesthesia Ready 910 Proc Start 911 Incision Start 922 an stop data 09 Proc Fin 09 Out of Room 0929 Handoff to RN I completed my handoff to the receiving nurse during which we: 1. Patient identified 2. Responsible provider identified 3. Pertinent medical history reviewed 4. Procedure type and surgical course discussed 5. Intraoperative anesthetic management and any significant issues discussed 6. Expectations and concerns for postop period discussed 7. Questions solicited from receiving nurse 8. Patient disposition at the time of handoff: PACU 928 An Stop Meds Name Total midazolam 2 mg/2 mL 2 mg fentaNYL PF 100 mcg propofol 150 mg lidocaine 0.5% PF 30 mL ondansetron PF 4 mg lidocaine 2 % 20 mg Lactated Ringer's (LR) infusion 300 mL * Agents Name O2 N2O Air * Blood No blood administrations on file. Lines, Drains, and Airways Type Details Placement Removal Peripheral IV Placement Date: 06/12 04/04; Placement Time: 0800; Catheter Size: 20 G; Orientation: Right; Location: Hand; Site Prep: Chlorhexidine; Insertion Attempts: 1; Patient Tolerance: Tolerated well; Removal Date: 06/29/24; Removal Time: 101; Removal Reason: Discharge 06/29/24 0800 by Liudmila Mcgrath RN 06/29/24 1012 by Shira Rodriguez RN Peripheral IV Placement Date: 06/12 04/04; Placement Time: 08; Catheter Size: 22 G; Orientation: Left; Location: Hand; Site Prep: Chlorhexidine; Insertion Attempts: 1; Patient Tolerance: Tolerated well; Removal Date: 06/29/24; Removal Time: 0912; Removal Reason: Therapy completed 06/29/24 0806 by Liudmila Mcgrath RN 06/29/24 09 by Pili Oseguera RN Wound 06/29/24; 0917; N; Incision; Palm; Left; 06/29/24; 1012 06/29/24 0917 by Pili Oseguera RN 06/29/24 1012 by Shira Rodriguez RN documented in this encounter Social History Tobacco [...] on file Legal Sex Female 9:06 PM CHILD SPECIALIST Gender Identity Female 10/01/2023 8:44 AM CHILD SPECIALIST Sexual Orientation Straight 10/01/2023 8: 44 AM CHILD SPECIALIST documented as of this encounter OR Notes * Anesthesia Postprocedure Evaluation - Mynor Perez MD - 06/29/2024 10:08 AM CST Patient: Renee Luke Procedure Summary Date: 06/29/24 Room / Location: [facility] OPERATING ROOM 4 / [facility] OPERATING ROOM Anesthesia Start: 900 Anesthesia Stop: 928 Procedure: LEFT CARPAL TUNNEL RELEASE (Left: Wrist) Diagnosis: Left carpal tunnel syndrome (Left carpal tunnel syndrome [G56.02]) Providers: Mynor Francisco MD Responsible Provider: Mynor Perez MD Anesthesia Type: MAC, regional as primary anesthetic, IV regional ASA Status: 2 Anesthesia Type: MAC, regional as primary anesthetic, IV regional Last vitals BP 118/85 (BP Location: Right arm, Patient Position: HOB 30 degrees) Pulse 70 Temp 36.2 ??C (97.2 ??F) (Temporal) Resp 15 SpO2 95% Anesthesia Post Evaluation Patient location during evaluation: PACU Patient participation: complete - patient participated Level of consciousness: fully awake Pain management: satisfactory to patient Airway patency: adequate Evidence of recall: no Cardiovascular status: hemodynamically stable Respiratory status: non-labored ventilation Hydration status: stable Pt is: normothermic Nausea/Vomiting status: none No notable events documented. D SPECIALIST * Anesthesia Procedure Notes - Priscilla Connolly CRNA - 06/29/2024 9:09 AM CSTAssociated Order(s): Kelly Block Anesthesia Kelly Block Anesthesia Reason for block: primary anesthetic Staff: Placed by: WOOD SHOP TEACHER: Priscilla Connolly CRNA Procedure prep: Preprocedure checklist: patient identified, patient appropriate for plan, informed consent obtained, surgical consent, risks and benefits discussed, monitors and equipment checked and timeout performed Prep solution: chlorhexadine/alcohol Kelly block: Site: left upper extremity Medication injected through: IV placed preoperatively IV gauge: 22g Procedure details: tourniquet - single cuff, esmarch applied to extremity, tourniquet inflation verified, local anesthetic injected, injection IV removed and patient tolerated procedure well Assessment: Events: patient tolerated procedure well without complications D SPECIALIST * Anesthesia Preprocedure Evaluation - Mynor Perez MD - 06/24/2024 3:01 PM CHILD SPECIALIST Images from the original note were not included. [facility] Preoperative [facility] and Planning Preoperative Evaluation Record Evaluation type/location: [facility] from [facility] Planned procedure site: [facility] Date: 06/24/24 Anesthesia Evaluation Renee Luke is a 44 y.o. female LEFT CARPAL TUNNEL RELEASE (Left: Wrist) Pre-Op Diagnosis Codes: * Left carpal tunnel syndrome [G56.02] HISTORY HPI Renee Lkue is a 44 yo female who is being evaluated prior to undergoing LEFT CARPAL TUNNEL RELEASE. Past Medical History Information obtained from: patient and chart. Information obtained during: Telephone Visit NOTE: This note represents a preoperative evaluation initiated via virtual (video or telephone) interview. NO PHYSICAL EXAM was performed at the time of initial assessment. A physical exam may be added to this note and documented below. Neurological Pertinent negatives: neuromuscular disease; CVA/stroke and TIA Cardiovascular + Hypertension (Elevated with pain) Typical systolic BP - 127 Typical diastolic BP - 87 Pertinent negatives: CAD ; AK ; CABG ; valvular heart disease; atrial fibrillation; pacemaker/ICD; DVT/PE; negative for CHF; drug-eluting stent(s) and bare metal stent(s) Respiratory + Current smoker - Counseled to abstain from smoking the day of surgery. Pertinent negatives: COPD; sleep apnea (CARIDAD); pulmonary hypertension; no O2 use outside the hospital and no tracheostomy Hepatic / Heme Pertinent negatives: liver disease Gastrointestinal + GERD - on daily therapy. Asymptomatic. Renal / + Nephrolithiasis (history of) Pertinent negatives: renal disease and dialysis Musculoskeletal/Pain + Chronic pain (Generalized. F/b pain management.) - neck pain and back pain. + Osteoarthritis Endocrine / Other + Obesity (BMI >30) (BMI 31.89) Pertinent negatives: diabetes mellitus; thyroid disease; cancer history; transplanted organ and infectious disease Functional Capacity Functional capacity: 4-6 METs Comments: No formal activity, independent with general ophthalmologist and ADLs. No CP.SOB with grocery shopping, vacuuming, laundry. Denies functional limitations. Day of Surgery assessments + Possibility of assessed (s/p hysterectomy) - ruled out by patient's provided history. Review of Systems + chronic pain (Generalized. F/b pain management.) + numbness/tingling (r/t surgical etiology) Pertinent negatives: productive cough; SOB; recent cold/flu; fever; chest pain; orthopnea; PND; previous transfusion; bleeding problems and syncope PAT Summary and Plans Cardiac risk classification of planned procedure: low cardiac risk. Preoperative assessment status: complete. Additional comments: Renee Luke is a 44 y.o. female who is being evaluated prior to undergoing a low cardiac risk surgery. Revised Cardiac Risk Index factors are (none) for a total RCRI of 0 out of6. Functional capacity is 4-6 METs. Obstructive sleep apnea (CARIDAD) screening status is STOP-BANG incomplete but suspected to be 0-2 suggesting low risk for CARIDAD. Neck circumference pending.. This assessment was performed via telephone. Therefore the physical exam has been deferred to the day of surgery team. The patient was provided with preoperative instructions for their medications. The patient was informed that instructions regarding stopping any therapeutic antiplatelet or anticoagulant medications will be provided by the surgeon's office. Patient instructions were provided by telephone and electronically sent via [employer]. Patient verbalized understanding of instructions. Blood bank needs for day of procedure: No type and screen needed Pending labs/tests include: None >>Pt R CTR was cancelled 03/2024 d/t elevated BP. Pt reports after PCP eval was started on bystolic. Case was rescheduled on 04/20/24 with BP 130/88 and no anesthesia complications. Pt reports complaint with all BP meds and instructed to continue usual schedule on DOS. She reports BP at home last night was 127/87. Preoperative evaluation performed by Blanquita Centeno NP on 06/24/24 at 3:06 PM . Patient Active Problem List Diagnosis Date Noted Left carpal tunnel syndrome 06/22/2024 Right carpal [...] Date Provider amLODIPine (NORVASC) 10 mg tablet 06/22/2024 03/03/24 -- Margarita Bunch MD cyclobenzaprine (FLEXERIL) 10 mg tablet Past Month 01/29/24 -- Kevin Dunn MD Take 1 tablet (10 mg total) by mouth 3 (three) times a day as needed for muscle spasms Patient taking differently: Take 1 tablet (10 mg total) by mouth 3 (three) times a day as needed for muscle spasms hydroCHLOROthiazide (HYDRODIURIL) 25 mg tablet 06/23/2024 -- -- Margarita Bunch MD ibuprofen 200 mg tab/cap 06/22/2024 -- -- Margarita Bunch MD losartan (COZAAR) 50 mg tablet 06/23/2024 -- -- Margarita Bunch MD MULTIVIT-MINERALS/FERROUS FUM (MULTI VITAMIN ORAL) 06/23/2024 -- -- Margarita Bunch MD nebivoloL (BYSTOLIC) 10 mg tablet 06/23/2024 01/03/24 -- Margarita Bunch MD omeprazole (PriLOSEC) 20 mg capsule 06/23/2024 -- -- Margarita Bunch MD ondansetron ODT (ZOFRAN-ODT) 4 mg disintegrating tablet -- 08/10/23 -- Jamila Clements PA Take 1 tablet (4 mg total) by mouth every 8 (eight) hours as needed for nausea or vomiting pregabalin (LYRICA) 150 mg capsule Past Week 05/08/24 -- Kevin Dunn MD TAKE 1 CAPSULE(150 MG) BY MOUTH TWICE DAILY Patient taking differently: Take 1 capsule (150 mg total) by mouth 2 (two) times a day as needed (neuropathy) No current facility-administered medications for this encounter. Current Outpatient Medications: amLODIPine (NORVASC) 10 mg tablet cyclobenzaprine (FLEXERIL) 10 mg tablet hydroCHLOROthiazide (HYDRODIURIL) 25 mg tablet ibuprofen 200 mg tab/cap losartan (COZAAR) 50 mg tablet MULTIVIT-MINERALS/FERROUS FUM (MULTI VITAMIN ORAL) nebivoloL (BYSTOLIC) 10 mg tablet omeprazole (PriLOSEC) 20 mg capsule ondansetron ODT (ZOFRAN-ODT) 4 mg disintegrating tablet pregabalin (LYRICA) 150 mg capsule Social History Tobacco Use Smoking Status Every Day Current packs/day: 0.75 Average packs/day: 0.8 packs/day for 32.6 years (24.5 ttl pk-yrs) Types: Cigarettes Start date: 11/11/1991 Smokeless Tobacco Never Alcohol Use: Not At Risk (06/23/2024) AUDIT-C Frequency of Alcohol Consumption: Never Average Number of Drinks: Patient does not drink Frequency of Binge Drinking: Never Substance and Sexual Activity Drug Use Never Family History Problem Relation Age of Onset Hypertension Father Alcohol abuse Mother Arthritis Mother COPD Mother Depression Mother Hearing loss Mother Obesity Mother Diabetes Maternal Grandfather Heart attack Maternal Grandfather Heart disease Maternal Grandfather Hearing loss Maternal Grandmother Stroke Paternal Grandfather Obesity Sister Obesity Brother There were no vitals filed for this visit. PT: No results found for requested labs [...] for requested labs within last 30 days. Sohail index score: 100 DOS Physical Exam Medical history, medications, and allergies reviewed. Attestation: This PAT evaluation Airway Exam: Mallampati: III Cervical ROM: FROM Cardiovascular Exam: Rate: regular Rhythm: regular Pulmonary Exam: LCTA Anesthesia Plan ASA 2 My patient is approved for the Anesthesia Controlled Medication protocol when under care of a WOOD SHOP TEACHER Planned anesthesia: MAC Consent and Attending signature: I and/or my designee have discussed the anesthesia plan, benefits, possible alternatives, parental presence at time of induction (if indicated), and clinically relevant risks that may include dental injury, unintentional awareness, and/or other complications. The patient and/or parent/legal guardian understand, and agree to proceed. All questions answered. D SPECIALIST D SPECIALIST documented in this encounter Plan of Treatment [...] the likelihood of falling Lifestyle No Steph Millard RN Note: Below are four things you [...] stairs Contact your local community or senior [place] for information on exercise, fall prevention programs, or options for improving home safety. documented as of this encounter Procedures Procedure Name Priority Date/Time Associated Diagnosis Comments [place] AN PROCEDURE PLACEHOLDER Routine 06/29/2024 9:09 AM CHILD SPECIALIST documented in this encounter Results * [place] AN PROCEDURE PLACEHOLDER (06/29/2024 9:09 AM CHILD SPECIALIST) Narrative Priscilla Connolly CRNA - 06/29/2024 9:09 AM CHILD SPECIALIST Priscilla Connolly CRNA ? 06/29/2024 ??9:10 AM Kelly Block Anesthesia Reason for block: primary anesthetic Staff: Placed by: SOURAV: Priscilla Connolly CRNA Procedure prep: Preprocedure checklist: ??patient identified, patient appropriate for plan, informed consent obtained, surgical consent, risks and benefits discussed, monitors and equipment checked and timeout performed Prep solution: chlorhexadine/alcohol Kelly block: Site: left upper extremity Medication injected through: IV placed preoperatively IV gauge: 22g Procedure details: tourniquet - single cuff, esmarch applied to extremity, tourniquet inflation verified, local anesthetic injected, injection IV removed and patient tolerated procedure well Assessment: Events: patient tolerated procedure well without complications Mynor Peerz MD ANESTHESIA ORDERABLES Final Resu lt documented in this encounter Visit Diagnoses Not on filedocumented in this encounter Administered Medications Inactive Administered Medications - up to 3 most recent administrations Medication Order MAR Action Action Date Dose Rate Site fentaNYL (SUBLIMAZE) preservative free injection intravenous, As needed, Starting on Sat06/29/24 at 0901, Anesthesia Intra-op Given 06/29/2024 9:01 AM CHILD SPECIALIST 100 mcg Lactated Ringer's (LR) infusion 30 mL/hr, intravenous, Continuous, Starting on Sat06/29/24 at 0815, Pre-Op, Use a 500 ml bag for End Stage Renal Disease Patients Restarted 06/29/2024 9:01 AM CHILD SPECIALIST New Bag 06/29/2024 8:12 AM CHILD SPECIALIST 30 mL/hr 30 mL/hr lidocaine (PF) (XYLOCAINE) 5 mg/mL (0.5 %) preservative free injection intravenous, As needed, Starting on Sat06/29/24 at 0907, Anesthesia Intra-op, Indications: Administration of Local AnesthesiaIndications:Administration of Local Anesthesia Given 06/29/2024 9:07 AM CHILD SPECIALIST 30 mL lidocaine (XYLOCAINE) 20 mg/mL (2 %) injection intravenous, As needed, Starting on Sat06/29/24 at 0907, Anesthesia Intra-op, Indications: Administration of Local AnesthesiaIndications:Administration of Local Anesthesia Given 06/29/2024 9:07 AM CHILD SPECIALIST 20 mg midazolam (VERSED) 1 mg/mL injection intravenous, As needed, Starting on Sat06/29/24 at 0901, Anesthesia Intra-op Given 06/29/2024 9:01 AM CHILD SPECIALIST 2 mg ondansetron (ZOFRAN) injection intravenous, Administer over 2 Minutes, As needed, Starting on Sat06/29/24 at 0908, Anesthesia Intra-op Given 06/29/2024 9:08 AM CHILD SPECIALIST 4 mg propofoL (DIPRIVAN) 10 mg/mL IV intravenous, As needed, Starting on Sat06/29/24 at 0907, Anesthesia Intra-op Given 06/29/2024 9:21 AM CHILD SPECIALIST 50 mg Given 06/29/2024 9:13 AM CHILD SPECIALIST 50 mg Given 06/29/2024 9:07 AM CHILD SPECIALIST 50 mg documented in this encounter Care Teams Shredder Picker Relationship Specialty Start Date End Date Lucas Carter DO PCP - General Internal Medicine 08/15/22 documented as of this encounter
--- OUTSIDE RECORDS SUMMARY | 2024-08-17 01:52 | XMS_ITS | Encounter Summary ---
Author Organization [facility] Address [address] [place] [address] Care Team Providers Care Forester Aide Name Role Phone Damian Sadler MD Primary Care Provider Reason for Visit * Reason Comments Pain Urinary Pt BIBself for urina ry pain. Pt states she has a history of kidney stones and says it feels like she is passing one. Pt states her urine is dark. Aox4. Pt states she has not been urinating as much as she usually does. Encounter Details Date Type Department Care Team (Late st Contact Info) Description 02/03/2024 3:30 AM CDT - 02/03/2024 5:34 AM CDT Emergency [facility] EMERGENCY DEPARTMENT [address] [place] [phone] Eh Villar MD [address] [place] [address] [place] [phone] Nephrolithiasis (Primary Dx); Flank pain; Hypertension, unspecified type Discharge Disposition: Home or Self Care Social [...] Sign Reading Time Taken Comments Blood Pressure 184/125 02/03/2024 5:31 AM CDT Pulse 95 02/03/2024 2:00 AM CDT Temperature 36.2 ??C (97.1 ??F) 02/03/2024 2:00 AM CD T Respiratory Rate 18 02/03/2024 5:31 AM CDT Oxygen Saturation 96% 02/03/2024 5:31 AM CDT Inhaled Oxygen Concentration - - Weight 81.6 kg (180 lb) 02/02/2024 11:16 PM CDT Height 160 cm (5' 3 ) 02/02/2024 11:16 PM CDT Body Mass Index 31.89 02/02/2024 11:16 PM CDT documented in this encounter Discharge Instructions * Discharge Instructions* Melvin Goss MD - 02/03/2024 4:44 AM CDT You were seen at the [facility] Emergency Department for flank pain. The diagnostic studies obtained during this visit showed a kidney stone on the right side. Use the [place] as needed for pain. Use the Flomax as prescribed to help pass the stone. Use the Zofran as needed for nausea. Follow up with your primary doctor right away to discuss this visit and any follow-up appointments with them. Return to [facility] Emergency Department as needed for worsening of your symptoms or new fevers, chest pain, shortness of breath, or injury. documented in this encounter Medications at Time of Discharge Medication Sig Dispensed Refills Start Date End Date omeprazole (PRILOSEC) 20 MG capsule Take 1 (one) capsule by mouth daily 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 ondansetron, disintegrating, (Zofran ODT) 4 MG tablet Take 1 (one) tablet by mouth every 6 hours as needed for Nausea/Vomiting Allow tablet to dissolve on the tongue 20 tablet 02/03/2024 tamsulosin (Flomax) 0.4 MG capsule Take 1 (one) capsule by mouth once daily after breakfast At the same time every day after a meal. 30 capsule 02/03/2024 acetaminophen-codeine (TYLENOL #3) 300-30 MG tablet Take 1-2 Tabs by mouth every 4 hours as needed Reported on 08/27/2016 0 04/30/2016 02/20/2024 gabapentin (NEURONTIN) 100 MG capsuleIndications:Hea dache disorder Take 1 Cap by mouth 3 times daily 270 Cap 3 08/27/2016 02/20/2024 HYDROcodone-acetaminop hen ([place]) 5-325 MG tabletIndications:Neph rolithiasis Take 1 (one) tablet by mouth every 6 hours as needed for Pain 12 tablet 02/03/2024 02/20/2024 ibuprofen (MOTRIN) 800 MG tablet Take 800 mg by mouth every 6 hours as needed 0 06/12/2016 02/20/2024 lisinopril (PRINIVIL; ZESTRIL) 20 MG tablet Take 20 mg by mouth once daily 02/20/2024 ondansetron (ZOFRAN) 4 MG tablet Take 4 mg by mouth every 4 hours as needed 0 05/15/2016 02/20/2024 oxyCODONE-acetaminophe n (PERCOCET) 5-325 MG tablet Take 1 Tab by mouth every 6 hours as needed Reported on 08/27/2016 0 05/15/2016 02/20/2024 documented as of this encounter ED Notes * Eh Villar MD - 02/03/2024 5:34 AM CDT Emergency Physician note I have performed an independent history and physical examination and discussed the patient's management with the resident. I agree with the findings, assessment and plan of care as documented by the resident except as noted below. Any radiology studies performed during the patient's Emergency Department stay were ordered and reviewed directly under my supervision. History: Patient presents with complaint of acute onset severe low back pain especially on the right. Patient has been feeling some pain similar to previous kidney stones but was not severe until just prior to arrival. Patient was visiting at the [facility] across the street and when pain struck suddenly she came for evaluation. Denies fever denies nausea vomiting denies diarrhea. Past medical history positive for renal stones, patient states multiple previous procedures Past Medical History: Diagnosis Date Hypertension Migraine headache pressure Tension headache Past Surgical History: Procedure Laterality Date Section Section Section ELBOW PROCEDURE/SURGERY Left 2 SCREWS Hysterectomy Right Social History Tobacco Use Smoking status: Every Day Packs/day: .5 Types: Cigarettes Smokeless tobacco: Never Substance Use Topics Alcohol use: No Drug use: No Allergies Allergen Reactions Tramadol Urticaria Hydralazine Vomiting Toradol [Ketorolac] Itching No current facility-administered medications for this encounter. Current Outpatient Medications Medication Sig acetaminophen-codeine (TYLENOL #3) 300-30 MG tablet Take 1-2 Tabs by mouth every 4 hours as needed Reported on 08/27/2016 gabapentin (NEURONTIN) 100 MG capsule Take 1 Cap by mouth 3 times daily (Patient not taking: Reported on 08/26/2019) HYDROcodone-acetaminophen ([place]) 5-325 MG tablet Take 1 (one) tablet by mouth every 6 hours as needed for Pain ibuprofen (MOTRIN) 800 MG tablet Take 800 mg by mouth every 6 hours as needed lisinopril (PRINIVIL; ZESTRIL) 20 MG tablet Take 20 mg by mouth once daily omeprazole (PRILOSEC) 20 MG capsule Take 20 mg by mouth daily 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 ondansetron (ZOFRAN) 4 MG tablet Take 4 mg by mouth every 4 hours as needed ondansetron, disintegrating, (Zofran ODT) 4 MG tablet Take 1 (one) tablet by mouth every 6 hours asneeded for Nausea/Vomiting Allow tablet to dissolve on the tongue oxyCODONE-acetaminophen (PERCOCET) 5-325 MG tablet Take 1 Tab by mouth every 6 hours as needed Reported on 08/27/2016 tamsulosin (Flomax) 0.4 MG capsule Take 1 (one) capsule by mouth once daily after breakfast At the same time every day after a meal. Exam: Vitals: 02/02/24 2316 02/03/24 0200 02/03/24 0531 BP: (!) 194/136 (!) 195/143 (!) 184/125 Pulse: 107 95 Resp: 16 18 Temp: 97.6 ??F (36.4 ??C) 97.1 ??F (36.2 ??C) SpO2: 100% 99% 96% Weight: 81.6 kg (180 lb) Height: 1.6 m (5' 3 ) Gen- seen after pain meds, afebrile, no acute distress Eyes- normal conjunctiva Ent- no neck swelling Cv- heart without murmur, normal pulses bilateral radial Resp- lung clear to auscultation Abd- soft, nontender, normal bowel sounds Back- nontender Ms- no ext swelling Neuro- normal motor all 4 MDM: DDx: Back pain-kidney stone versus UTI versus pyelo versus muscle strain versus other Plan: Labs and CT DATA REVIEW: Labs Reviewed COMPREHENSIVE METABOLIC PANEL - Abnormal; Notable for the following components: Result Value Potassium 3.4 (*) CO2 21 (*) ALT 58 (*) All other components within normal limits URINALYSIS W/MICROSCOPIC NO CULTURE - Abnormal; Notable for the following components: Clarity UA Slt Cloudy (*) RBC UA 6-10 (*) Squamous Epithelial Cells UA 6-10 (*) All other components within normal limits Narrative: CBC W AUTO DIFFERENTIAL - Normal Lab interpret: Benign by my review CT RENAL STONE (Results Pending) Rad interpret: CT by my review and per Radiology with 1-2 mm right distal ureter stone without obstruction ED COURSE Patient presented with acute onset pain. Workup revealed nonobstructing kidney stone. Patient be discharged with symptomatic care and outpatient follow-up. pt counseled on findings and plan Clinical Impression: Acute right renal stone Disposition: Discharged Eh Villar MD 02/03/2024 8:32 AM * Gwen Mcdonnell RN - 02/03/2024 5:33 AM CDT Pt is awake and alert GCS 15. Breathing is regular and nonlabored. Skin is warm and dry. Gait is steady with no assistance. Proper discharge clothing. Discharge teaching successful as evidence by no further questions/concerns/needs. Pt ready for discharge. * Melvin Goss MD - 02/03/2024 3:43 AM CDT [facility] Emergency Department Emergency Medicine Resident Note Chief Complaint Patient presents with Pain Urinary Pt BIBself for urinary pain. Pt states she has a history of kidney stones and says it feels like she is passing one. Pt states her urine is dark. Aox4. Pt states she has not been urinating as much asshe usually does. HISTORY History obtained from: Patient Renee Luke is a 43 year old female with h/o HTN, recurrent kidney stones who presents with c/o 2 days of right-sided flank pain that acutely worsened prior to arrival as well as 1 day of nausea. She states that this feels like kidney stone she has had in the past. She denies dysuria but reports decreased urine output. She denies fevers, chills, abdominal pain, vomiting, chest pain, shortness of breath. Past Medical History: Diagnosis Date Hypertension Migraine headache pressure Tension headache Past Surgical History: Procedure Laterality Date Section Section Section ELBOW PROCEDURE/SURGERY Left 2 SCREWS Hysterectomy Right Family History Problem Relation Name Age of Onset Hypertension Mother Hypertension Father Social History Socioeconomic History Marital status: Spouse [...] on file Housing Stability: Not on file ROS -See HPI PHYSICAL EXAM BP (!) 184/125 Pulse 95 Temp 97.1 ??F (36.2 ??C) Resp 18 Ht 1.6 m (5' 3 ) Wt 81.6 kg (180lb) SpO2 96% Physical Exam Constitutional: General: She is not in acute distress. Appearance: She is normal weight. HENT: Head: Normocephalic and atraumatic. Nose: Nose normal. No congestion. Mouth/Throat: Mouth: Mucous membranes are moist. Pharynx: Oropharynx is clear. Eyes: Extraocular Movements: Extraocular movements intact. Pupils: Pupils are equal, round, and reactive to light. Cardiovascular: Rate and Rhythm: Normal rate and regular rhythm. Pulses: Normal pulses. Heart sounds: Normal heart sounds. No murmur heard. Pulmonary: Effort: Pulmonary effort is normal. Breath sounds: Normal breath sounds. No wheezing. Abdominal: General: Abdomen is flat. There is no distension. Palpations: Abdomen is soft. Tenderness: There is no abdominal tenderness. There is right CVA tenderness. There is no guarding. Musculoskeletal: General: Normal range of motion. Cervical back: Normal range of motion. Right lower leg: No edema. Left lower leg: No edema. Skin: General: Skin is warm and dry. Capillary Refill: Capillary refill takes less than 2 seconds. Coloration: Skin is not jaundiced. Neurological: General: No focal deficit present. Mental Status: She is alert and oriented to person, place, and time. Cranial Nerves: No cranial nerve deficit. Psychiatric: Mood and Affect: Mood normal. Behavior: Behavior normal. Medical Decision Making: Problem List: Flank pain Differential Diagnosis: Pyelonephritis, nephrolithiasis, UTI, other Plan: Labs, Imaging, symptom control, re-evaluation Pulse Oximetry: Saturation: 99% Oxygen Delivery: Room Air Interpretation: No hypoxia at this time RESULTS Labs Reviewed COMPREHENSIVE METABOLIC PANEL - Abnormal; Notable for the following components: Result Value Potassium 3.4 (*) CO2 21 (*) ALT 58 (*) All other components within normal limits URINALYSIS W/MICROSCOPIC NO CULTURE - Abnormal; Notable for the following components: Clarity UA Slt Cloudy (*) RBC UA 6-10 (*) Squamous Epithelial Cells UA 6-10 (*) All other components within normal limits Narrative: CBC W AUTO DIFFERENTIAL - Normal CT RENAL STONE (Results Pending) INTERVENTIONS Medications ondansetron (Zofran) injection 4 mg (4 mg Intravenous $ Given 02/03/24410) 0.9% NaCl IV bolus (1,000 mL Intravenous $ New Bag/Syringe 02/03/24410) tamsulosin (Flomax) capsule 0.4 mg (0.4 mg Oral $ Given 02/03/24410) HYDROmorphone (Dilaudid) injection 0.5 mg (0.5 mg Intravenous $ Given 02/03/24411) Procedures ED Course and Summary: 3:43 AM Patient seen and evaluated, available studies reviewed and interpreted by me. Labs obtained in triage are largely unremarkable, UA shows no signs of infection, CT imaging shows a nonobstructing 2 mm stone in the right ureter.. Patient was given IV fluids and symptomatic control and discharged supportive care and urology follow-up. I personally discussed this case with the following Physicians/consultants: N/A Medications given in ED: Yes - see MAR Medications prescribed: Yes Revised home medications: No Social determinants of health: No Limiting social determinants of health: None. Amount and/or Complexity of Data Reviewed medical complexity: medical complexity, Triage notes and available nursing notes reviewed , Clinical lab tests: ordered and reviewed, Tests in the radiology section of CPT??: ordered and independent interpretation, and Independent visualization of images: yes . ED FINAL DIAGNOSIS 1. Nephrolithiasis 2. Flank pain 3. Hypertension, unspecified type DISPOSITION Discharge Melvin Goss MD Emergency Medicine, PGY-3 * Melvin Goss MD - 02/03/2024 3:30 AM CDT Bed: [facility] Expected date: Expected time: Means of arrival: Comments: Meme Luke * Placido Rudd - 02/03/2024 12:11 AM CDT Call x1 for labs * Evette Ness RN - 02/02/2024 11:42 PM CDT Pt BIBself for urinary pain. Pt states she has a history of kidney stones and says it feels like she is passing one. Pt states her urine is dark. Aox4. Pt states she has not been urinating as much asshe usually does. documented in this encounter Plan of Treatment Not on file documented as of this encounter Procedures Procedure Name Priority Date/Time Associated Diagnosis Comments CBC W AUTO DIFFERENTIAL STAT 02/03/2024 1:03 AM CDT COMPREHENSIVE METABOLIC PANEL STAT 02/03/2024 1:03 AM CDT URINALYSIS W/MICROSCOPIC NO CULTURE STAT 02/03/2024 12:[address] RENAL STONE STAT 02/03/2024 12:19 AM CDT Flank pain documented in this encounter Results * (ABNORMAL) COMPREHENSIVE METABOLIC PANEL (02/03/2024 1:03 AM CDT) BUN 9 7 - 26 mg/dL 02/03/2024 1:45 AM [facility] Creatinine 0.64 0.56 - 0.96 mg/dL 02/03/2024 1:45 AM [facility] Sodium 139 136 - 145 mmol/L 02/03/2024 1:45 AM [facility] Potassium 3.4(L) 3.5 - 4.5 mmol/L 02/03/2024 1:45 AM [facility] Chloride 107 98 - 107 mmol/L 02/03/2024 1:45 AM [facility] CO2 21(L) 22 - 29 mmol/L 02/03/2024 1:45 AM [facility] Glucose 78 70 - 115 mg/dL 02/03/2024 1:45 AM [facility] Calcium 9.9 8.4 - 10.2 mg/dL 02/03/2024 1:45 AM [facility] Protein Total 7.7 6.0 - 8.3 g/dL 02/03/2024 1:45 AM [facility] Albumin 4.4 3.4 - 5.0 g/dL 02/03/2024 1:45 AM [facility] Bilirubin Total 0.4 0.2 - 1.2 mg/dL 02/03/2024 1:45 AM [facility] Alkaline Phosphatase 81 40 - 150 U/L 02/03/2024 1:45 AM [facility] ALT 58(H) 5 - 55 U/L 02/03/2024 1:45 AM [facility] AST 33 5 - 34 U/L 02/03/2024 1:45 AM [facility] Anion Gap 11 6 - 16 02/03/2024 1:45 AM [facility] BUN/Creatinine Ratio 14 7 - 23 02/03/2024 1:45 AM [facility] Osmolality Calculated 286 275 - 295 mOsm/kg 02/03/2024 1:45 AM [facility] Albumin/Globulin Ratio 1.3 1.1 - 2.3 02/03/2024 1:45 AM [facility] eGFR by CKD-EPI >90 >=90 mL/min/1.7 3 m2 02/03/2024 1:45 AM [facility] Blood BLOOD SPECIMEN / Unknown Venipuncture / Unknown 02/03/2024 1:03 AM CDT 02/03/2024 1:17 AM T Kaylee Reyes MD LAB - CHEMISTRY ORDE WENCES[place]O [facility] Organization Address City/State/ZIP Co de Phone Number [facility] [address] [place] [phone], [facility] [phone] * CBC W AUTO DIFFERENTIAL (02/03/2024 1:03 AM [facility]) WBC 7.8 4.0 - 10.7 x10E9/L 02/03/2024 1:27 AM [facility] RBC Count 5.03 3.90 - 5.20 x10E12/L 02/03/2024 1:27 AM [facility] Hemoglobin 15.3 11.9 - 15.8 g/dL 02/03/2024 1:27 AM [facility] Hematocrit 42.7 34.8 - 46.1 % 02/03/2024 1:27 AM [facility] MCV 84.9 80.0 - 98.0 fL 02/03/2024 1:27 AM [facility] MCH 30.4 26.7 - 33.6 pg 02/03/2024 1:27 AM [facility] MCHC 35.8 31.7 - 36.3 g/dL 02/03/2024 1:27 AM [facility] RDW-CV 11.7 11.3 - 14.8 % 02/03/2024 1:27 AM [facility] Platelet Count 273 150 - 420 x10E9/L 02/03/2024 1:27 AM [facility] MPV 9.4 7.8 - 11.4 fL 02/03/2024 1:27 AM [facility] Neutrophil % 61.8 41.0 - 74.0 % 02/03/2024 1:27 AM [facility] Lymphocyte % 28.0 17.0 - 47.0 % 02/03/2024 1:27 AM [facility] Monocyte % 7.7 3.0 - 11.0 % 02/03/2024 1:27 AM [facility] Eosinophil % 2.0 0.0 - 7.0 % 02/03/2024 1:27 AM [facility] Basophil % 0.4 0.0 - 1.6 % 02/03/2024 1:27 AM [facility] Immature Granulocytes % 0.1 0.0 - 1.0 % 02/03/2024 1:27 AM [facility] Neutrophil Absolute 4.84 1.60 - 7.50 x10E9/L 02/03/2024 1:27 AM [facility] Lymphocyte Absolute 2.19 1.00 - 4.40 x10E9/L 02/03/2024 1:27 AM [facility] Monocyte Absolute 0.60 0.15 - 1.00 x10E9/L 02/03/2024 1:27 AM [facility] Eosinophil Absolute 0.16 0.00 - 0.60 x10E9/L 02/03/2024 1:27 AM [facility] Basophil Absolute 0.03 0.00 - 0.13 x10E9/L 02/03/2024 1:27 AM [facility] Blood BLOOD SPECIMEN / Unknown Venipuncture / Unknown 02/03/2024 1:03 AM [facility] 02/03/2024 1:17 AM [facility] Kaylee Reyes MD LAB - HEMATOLOGY ORD ERABLES [facility] [address] [place] [address] [phone] * (ABNORMAL) URINALYSIS W/MICROSCOPIC NO CULTURE (02/03/2024 12:57 AM T) Color UA Yellow Straw, Yellow 02/03/2024 1:40 AM [facility] Clarity UA t Cloudy(A) Clear 02/03/2024 1:40 AM [facility] Specific [place] UA 1.020 1.005 - 1.030 02/03/2024 1:40 AM [facility] pH UA 5.0 5.0 - 8.0 pH 02/03/2024 1:40 AM [facility] Protein UA Negative Negative 02/03/2024 1:40 AM [facility] Glucose UA Negative Negative 02/03/2024 1:40 AM [facility] Ketone UA Negative Negative 02/03/2024 1:40 AM [facility] Bilirubin UA Negative Negative 02/03/2024 1:40 AM [facility] Blood UA Negative Negative 02/03/2024 1:40 AM [facility] Nitrite UA Negative Negative 02/03/2024 1:40 AM [facility] Leukocyte Esterase Negative Negative 02/03/2024 1:40 AM [facility] Urobilinogen UA Negative Negative mg/dL 02/03/2024 1:40 AM [facility] RBC UA 6-10(A) None Seen, 0-2, 3-5 /HPF 02/03/2024 1:40 AM [facility] WBC UA 0-5 None Seen, 0-5 /HPF 02/03/2024 1:40 AM [facility] Squamous Epithelial Cells UA 6-10(A) None Seen, 0-2, 3-5 /HPF 02/03/2024 1:40 AM [facility] Mucus UA 2+ /LPF 02/03/2024 1:40 AM [facility] Urine URINE SPECIMEN OBTAINED BY CLEAN CATCH PROCEDURE / Unknown Collection / Unknown 02/03/2024 12:57 AM T 02/03/2024 1:13 AM [facility] - 02/03/2024 1:40 AM CDT Kaylee Reyes MD LAB - URINALYSIS ORD ERABLES [facility] [address] [place] [address], [facility] [phone] * CT RENAL STONE (02/03/2024 12:19 AM [...] > Dictated by Samy Johnson MD, PhD (residential roofer). I, Haylee Lopez MD have personally reviewed and interpreted this examination/study. > Interpreting Provider: Haylee Lopez MD on 02/03/2024 10:15 AM Narrative 02/03/2024 10:15 AM CDT PROCEDURE: ??CT RENAL STONE, DATE/TIME OF EXAM: ??02/03/2024 12:19 AM, LOCATION ??[facility] INDICATION: R10.9: Flank pain [...] DATE/TIME OF EXAM: 02/03/2024 12:19 AM, LOCATION [facility] INDICATION: R10.9: Flank pain [...] > Dictated by Samy Johnson MD, PhD (residential roofer). I, Haylee Lopez MD have personally reviewed and interpreted this examination/study. > Interpreting Provider: Haylee Lopez MD on 410:15 AM Kaylee Reyes MD [address] ORDERABLES documented in this encounter Visit Diagnoses Diagnosis Nephrolithiasis- Primary Calculus of kidney Flank pain Abdominal pain, unspecified site Hypertension, unspecified type documented in this encounter Administered Medications Inactive Administered Medications - up to 3 most recent administrations Medication Order MAR Action Action Date Dose Rate Site 0.9% NaCl IV bolus 1,000 mL, at 1,935.48 mL/hr, Administer over 31 Minutes, ONCE, 1 dose, On Sat02/03/24 at 0000 $ New Bag/Syringe 02/03/2024 4:11 AM CDT 1,000 mL 1935.48 mL/hr HYDROmorphone (Dilaudid) injection 0.5 mg 0.5 mg, Intravenous, NOW, 1 dose, On Sat02/03/24 at 0400, Patient preference for lesser PRN pain meds may be honored when the patient requests a less strong medication, a lower dose, or a less intrusive route of administration when the lesser drug, dose and route have been ordered for the patient. This patient request must be documented in the MAR. If both oral and IV options are ordered for the same pain severity, give oral first unless patient cannot tolerate oral intake $ Given 02/03/2024 4:12 AM CDT 0.5 mg ondansetron (Zofran) injection 4 mg 4 mg, Intravenous, NOW, 1 dose, On Sat02/02/24 at 2345, Administer over 2 to 5 minutes. $ Given 02/03/2024 4:11 AM CDT 4 mg tamsulosin (Flomax) capsule 0.4 mg 0.4 mg, Oral, NOW, 1 dose, On Sat02/03/24 at 0400, At the same time every day after a meal. Do not crush or chew. May open capsule and administer contents per tube. J-tube administration is not appropriate as the small lumen would necessitate crushing of granules. $ Given 02/03/2024 4:11 AM CDT 0.4 mg documented in this encounter Active and Recently Administered Medications Times are shown in CDT. Scheduled Medication Order 02/01/2024 02/02/2024 02/03/2024 0.9% NaCl IV bolus (COMPLETED) 1,000 mL, at 1,935.48 mL/hr, Administer over 31 Minutes, ONCE, 1 dose, On Sat02/03/24 at 0000 0411 ($ New Bag/Syri nge - Provider: Keith Freedman Nurse)0442 (Due: Stopped - Provider: Keith Freedman Nurse) HYDROmorphone (Dilaudid) injection 0.5 mg (COMPLETED) 0.5 mg, Intravenous, NOW, 1 dose, On Sat02/03/24 at 0400, Patient preference for lesser PRN pain meds may be honored when the patient requests a less strong medication, a lower dose, or a less intrusive route of administration when the lesser drug, dose and route have been ordered for the patient. This patient request must be documented in the MAR. If both oral and IV options are ordered for the same pain severity, give oral first unless patient cannot tolerate oral intake 0412 ($ Given - Prov ider: Keith Freedman Nurse) ondansetron (Zofran) injection 4 mg (COMPLETED) 4 mg, Intravenous, NOW, 1 dose, On Sat02/02/24 at 2345, Administer over 2 to 5 minutes. 0411 ($ Given - Prov ider: Keith Freedman Nurse) tamsulosin (Flomax) capsule 0.4 mg (COMPLETED) 0.4 mg, Oral, NOW, 1 dose, On Sat02/03/24 at 0400, At the same time every day after a meal. Do not crush or chew. May open capsule and administer contents per tube. J-tube administration is not appropriate as the small lumen would necessitate crushing of granules. 0411 ($ Given - Prov ider: Keith Freedman) documented in this encounter Care Teams Forester Aide Relationship Specialty Start Date End Date Damian Sadler MD PCP - General Internal Medicine 07/04/16 documented as of this encounter
--- OUTSIDE RECORDS SUMMARY | 2024-08-17 01:52 | XMS_ITS | Encounter Summary ---
Author Organization [facility] Address [address] [place] [address] Care Team Providers Care Barrel Washer Machine Name Role Phone Unavailable Primary Care Provider Unavailabl e Encounter Details Date Type Department Care Team (Latest Contact Info) Description 08/21/2009 3:33 PM WARD ASSISTANT - 08/21/2009 3:34 PM WARD ASSISTANT Hospital Encounter [facility] [address] [place] [address] Unknown, Provider Medical Inpatient Discharge Disposition: Home or Self Care Social History Tobacco Use Types Packs/Day Years Used Date Smoking Tobacco: Never Assessed Sex and Gender Information Value Date Recorded Sex Assigned at Not on file Gender Identity Not on file Sexual Orientation Not on file documented as of this encounter Miscellaneous Notes * Miscellaneous Scans - Document, Scanned - 07/11/2010 11:10 AM WARD ASSISTANT documented in this encounter Plan of Treatment Not on file documented as of this encounter Visit Diagnoses Not on filedocumented in this encounter
--- OUTSIDE RECORDS SUMMARY | 2024-08-17 01:52 | XMS_ITS | Encounter Summary ---
Author Organization [facility] Healthcare Address [address] [place] [address] Care Team Providers Care Animal Rehabilitator Name Role Phone Lucas Carter DO Primary Care Provider [phone] Reason for Visit * Auth/Cert (Routine) Specialty Diagnoses / Procedures Referred By Lluvia t Referred To Contact Diagnoses Left carpal tunnel syndrome Left carpal tunnel syndrome [G56.02] Procedures MS REVISE MEDIAN N/CARPAL TUNNEL SURG LEFT CARPAL TUNNEL RELEASE Referral ID Status Reason Start Date Expiration Date Visits Re quested Visits Authorized [id number] 1 1 Encounter Details Date Type Department Care Team (Latest Contact Info) Description 06/29/2024 7:02 AM INSTRUCTOR BRIDGE - 06/29/2024 10:31 AM INSTRUCTOR BRIDGE Hospital Encounter [facility] [address] [place] [id number] Mynor Francisco MD [address] [facility] [place] [address] Left carpal tunnel syndrome (Primary Dx) Discharge [...] on file Legal Sex Female 9:06 PM INSTRUCTOR BRIDGE Gender Identity Female 10/01/2023 8:44 AM INSTRUCTOR BRIDGE Sexual Orientation Straight 10/01/2023 8: 44 AM INSTRUCTOR BRIDGE documented as of this encounter Last Filed Vital Signs Vital Sign Reading Time Taken Comments Blood Pressure 125/82 06/29/2024 10:05 AM INSTRUCTOR BRIDGE Pulse 75 06/29/2024 10:05 AM INSTRUCTOR BRIDGE Temperature 36.2 ??C (97.2 ??F) 06/29/2024 9:28 AM CS T Respiratory Rate 15 06/29/2024 10:0 5 AM INSTRUCTOR BRIDGE Oxygen Saturation 96% 06/29/2024 10: 05 AM INSTRUCTOR BRIDGE Inhaled Oxygen Concentration - - Weight 83.4 kg (183 lb 12.8 oz) 06/29/2024 7:50 AM INSTRUCTOR BRIDGE Height 160 cm (5' 3 ) 06/29/2024 7:50 AM INSTRUCTOR BRIDGE Body Mass Index 32.56 06/29/2024 7:50 AM INSTRUCTOR BRIDGE documented in this encounter Discharge Instructions * Discharge Instructions* Elizabeth Escobar, ELECTRONICS INSTRUCTOR - 06/22/2024 11:10 AM INSTRUCTOR BRIDGE [facility] Postoperative Instructions [...] HOURS: Saturday - Saturday 8:00 - 4:30 Votator Machine Operator: Tania phone: [phone] AFTER HOURS/WEEKEND - EMERGENCIES ONLY (NO MEDICATION REFILLS): Medical Exchange: [phone] or toll-free The designated on-call physician will contact you. (- it may or may not be your surgeon, since all the surgeons rotate call). If you have an emergency that requires immediate attention, please proceed to the nearest emergency room. Perioperative Narcotic Considerations The Orthopedic hand surgeons of [facility] manage perioperative pain as wellas the pain after an acute injury. Our surgeons do not manage chronic pain (pain three months afterthe injury/surgery), and will refer patients seeking longer term care for their painful condition to a pain management service or their primary physician as those physicians typically establish alf treatment relationships with patients. Following elective hand [...] be called in to your pharmacy if ???[id number]-[id number]??? anti-inflammatory pain medication do not decrease the pain even when taken on a regular basis. These can be called in during the hours 9am to 4pm, during the workweek. ???Alternative??? treatments such as acupuncture, meditation and biofeedback can all be used to decrease post-operative pain. The Orthopedic hand surgeons of [facility] want you to be as comfortable [...] of pain. The ???opioid epidemic??? in [place] is very real, and we as physicians [...] your surgeon or his/her nurse or MA. RUCTOR BRIDGE documented in this encounter Medications at Time [...] 1 tablet (25 mg total) by mouth office assistance 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 ibuprofen 200 mg tab/cap Take 2 tablet/capsule (400 mg total) by mouth every 6 (six) hours as needed for pain losartan (COZAAR) 50 mg tabletIndications:hy pertension Take 1 tablet (50 mg total) by mouth 2 (two) times a day MULTIVIT-MINERALS/FE RROUS FUM (MULTI VITAMIN ORAL)Indications:hea lth Take 1 tablet by mouth office assistance 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 nebivoloL (BYSTOLIC) 10 mg tabletIndications:hy pertension Take 1 tablet (10 mg total) by mouth every other day 01/03/2024 omeprazole (PriLOSEC) 20 mg capsuleIndications:T reatment of Non-Bleeding Gastric Disorder Take 1 capsule (20 mg total) by mouth office assistance 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 pregabalin (LYRICA) 150 mg capsule [...] 1 tablet (25 mg total) by mouth office assistance 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 06/28/2024 ibuprofen 200 mg tab/cap Take 2 tablet/capsule (400 mg total) by mouth every 6 (six) hours as needed for pain 06/28/2024 losartan (COZAAR) 50 mg tablet Take 1 tablet (50 mg total) by mouth 2 (two) times a day 06/29/2024 Morning MULTIVIT-MINERALS/FERROUS FUM (MULTI VITAMIN ORAL) Take 1 tablet by mouth office assistance 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 06/28/2024 nebivoloL (BYSTOLIC) 10 mg tablet Take 1 tablet (10 mg total) by mouth every other day 06/28/2024 omeprazole (PriLOSEC) 20 mg capsule Take 1 capsule (20 mg total) by mouth office assistance 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 06/28/2024 pregabalin (LYRICA) 150 mg [...] Mynor Francisco MD at 06/29/2024 8:51 AM INSTRUCTOR BRIDGE RUCTOR BRIDGE RUCTOR BRIDGE documented in this encounter Miscellaneous Notes * Perioperative Nursing Note - Shira Rodriguez RN - 06/29/2024 9:47 AM INSTRUCTOR BRIDGE 0928 - Pt arrived to PACU w/ anesthesia and MANAGER LIFE SCIENCES. Received report from MANAGER LIFE SCIENCES. Pt is (arousalable or still sedated?) with [...] car to discharge home with lamar Lopez RUCTOR BRIDGE * Op Note - Mynor Francisco MD - 06/29/2024 9:12 AM CST SURGEON Mynor Francisco MD CYLINDER STEAMER Rylie Poole MD PREOPERATIVE DIAGNOSIS left carpal tunnel syndrome. POSTOPERATIVE DIAGNOSIS Left carpal tunnel syndrome. PROCEDURE Left carpal tunnel release. ANESTHESIA Kelly block. COMPLICATIONS [...] the operative stretcher. They underwent induction of Foxworth block anesthesia with a forearm tourniquet on [...] I was present for the entire case. RUCTOR BRIDGE * Perioperative Nursing Note - Liudmila Mcgrath RN - 06/29/2024 7:46 AM INSTRUCTOR BRIDGE Pt in bed in lowest position locked with both side rails up, nonslip socks applied, curtain open and patient near nurses station. Pt will not be left behind curtain alone. Pt's dtr, john with pt. Pt states daughter, Tania, will care for and remain with pt for 24 hours post surgery. RUCTOR BRIDGE * Pre-Procedure Instructions - Chasity Tafoya RN - 06/26/2024 11:42 AM INSTRUCTOR BRIDGE We are pleased that you and your doctor have chosen [facility] for your surgery. We hope the following information will help make your visit a pleasant one. The name of the building is [facility] [place] in [place]. Directions to facility (address [place] [id number] [place] [address], [address]). [facility] exit. Zip [address] When you enter the building, look directly to your left, you will see 2 glass double doors. These double doors say [address]. Go through those double doors and check in with the trackmobile operator. PT STATES SHE WAS SEEN IN ED [...] out. Instructed to patient to refer to [facility] surgery guide page 6 for any questions regarding eating and drinking day of surgery. For medications that the Nurse Practitioner instructed you to take on the morning of surgery, take the medications with a few sips of water. Pt's. ADULT DAUGHTER JOHN [phone] will be with patient and HER WILL [...] or purchase it from the refreshment area. RUCTOR BRIDGE * Pre-Procedure Instructions - Blanquita Centeno NP - 06/24/2024 2:58 PM CST [facility] CPAP Clinic Location: [facility] The night before your surgery: [...] tools to help you quit or call 9-633-OOAMOZL ( ). Visit Smokefree.gov for more information. [...] additional action prior to your planned procedure. RUCTOR BRIDGE RUCTOR BRIDGE * Perioperative Nursing Note - Judit Iniguez RN - 06/23/2024 3:53 PM INSTRUCTOR BRIDGE [facility] Perioperative Nursing Note Telephone Preoperative Evaluation ([facility]) - TELEPHONE ONLY, NO PHYSICAL EXAM [...] 1 tablet (25 mg total) by mouth office assistance 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 losartan (COZAAR) 50 mg tablet Take 1 tablet (50 mg total) by mouth 2 (two) times a day MULTIVIT-MINERALS/FERROUS FUM (MULTI VITAMIN ORAL) Take 1 tablet by mouth office assistance 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 nebivoloL (BYSTOLIC) 10 mg tablet Take 1 tablet (10 mg total) by mouth every other day omeprazole (PriLOSEC) 20 mg capsule Take 1 capsule (20 mg total) by mouth office assistance 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 ondansetron ODT (ZOFRAN-ODT) 4 mg [...] directive Information Provided on Healthcare Directives: No Communication/Reproduction Machine Loader Needs Communication Needs: Glasses Does caregiver's language differ from patient's?: No Assistive Devices/DME: Eyeglasses Discharge Planning Type of Residence: Private residence Living Arrangements: Spouse/significant other Support Systems: Spouse/significant other Assistance Needed: Daughter to provide discharge transportation Patient expects to be discharged to: Private residence BROOM MAKER NO ADDITIONAL COMMENTS/ FOLLOW UP RUCTOR BRIDGE * Pre-Procedure Instructions - Judit Iniguez RN - 06/23/2024 3:53 PM INSTRUCTOR BRIDGE [facility] (CPAP) [...] remove nail coverings, artificial nails and nail honduran prior to the day of surgery. This is to lower your risk of infection and to allow the day of surgery team to monitor your oxygen levels. You should leave your valuables and any jewelry at home. No metal or piercings are allowed in the operating room. You should bring your insurance card, a photo ID (example: Lab Director's License) and a method of payment for [...] Chart. If you are having surgery at [facility], please arrive on the day of surgery [...] Remove nail coverings, artificial nails and nail honduran. Place clean linens on your bed the [...] questions, please call the CPAP Staff at [phone], Saturday-Saturday 8am-4:30pm. All patients should read the below section: Information on [facility] & the Orthopedic Center: Please view [email or web address] (Patient & Visitor Information) for additional details regarding Advanced Directive forms, AWARE, directions, parking information, lodging, Internet access, dining and more. Information on [facility] or [facility] ([facility]): Please view [email or web address] (Patient and Visitor Information) for parking, directions, lodging and more. For MyChart information, to activate account or password recovery, please go to [email or web address] or call [phone] (toll-free: [phone]), Sat- Saturday 8am-5pm. Information for Suicide Prevention: National Suicide Prevention Lifeline (1-641- 725-DWCY (6964)) or call or text 514. Chat resources: Intaleline.org. Surgery Times: For patients having surgery @ The [facility], if your surgeon's office has not notified you of your surgery time by NOON THE BUSINESS DAY BEFORE your surgery, please call the surgery center [phone]. The [facility] Planning ([facility]) does not provide arrival times for theday of surgery or provide the duration of surgery. This information is provided by your surgeon's office or by the center where you are having surgery. We appreciate your understanding. RUCTOR BRIDGE documented in this encounter Plan of Treatment [...] on stairs Contact your local community or [facility] for information on exercise, fall prevention programs, or options for improving home safety. documented as of this encounter Procedures Procedure Name Priority Date/Time Associated Diagnosis Comments RELEASE CARPAL TUNNEL 06/29/2024 9:03 AM INSTRUCTOR BRIDGE Left carpal tunnel syndrome POCT PREOP SCREEN (TYL-FB-HHS-BUN-CR- HBG-HCT) Routine 06/29/2024 8:12 AM INSTRUCTOR BRIDGE documented in this encounter Results * POCT Preop screen (ckord-It-Phi-VQO-Vu-Lnl-Hct) (06/29/2024 8:12 AM INSTRUCTOR BRIDGE) K POC 3.7 3.3 - 4.9 mmol/L Comment: Interpretive Data This method is not able to assess for hemolysis, which may falsely increase potassium concentrations. If further testing is needed to evaluate this result, consider in-laboratory plasma potassium. Current Interpretive Data was last revised on 2022. Blood 06/29/2024 8:12 AM INSTRUCTOR BRIDGE 06/29/2024 8:12 AM INSTRUCTOR BRIDGE us Mynor Francisco MD LAB POCT ORDERABLES - DEV ICE Final Result [facility] [address] [facility] Department [place] [address] documented in this encounter Visit Diagnoses Diagnosis [...] I, Indications: PainIndications:Pain Given 06/29/2024 9:55 AM INSTRUCTOR BRIDGE 1 tablet Lactated Ringer's (LR) infusion 30 mL/hr, intravenous, Continuous, Starting on Sat06/29/24 at 0815, Pre-Op, Use a 500 ml bag for End Stage Renal Disease Patients Restarted 06/29/2024 9:01 AM INSTRUCTOR BRIDGE New Bag 06/29/2024 8:12 AM INSTRUCTOR BRIDGE 30 mL/hr 30 mL/hr lidocaine (PF) (XYLOCAINE) 10 mg/mL (1 %) preservative free injection 2-10 mg 2-10 mg (0.2-1 mL), subcutaneous, Once as needed, pain with IV placement, Starting on Sat06/29/24 at 0740, For 1 dose, Pre-Op, Administer volume needed to infiltrate IV site. Given 06/29/2024 8:12 AM INSTRUCTOR BRIDGE 2 mg Right Hand documented in this encounter Discontinued Medications Medication [...] Recently Administered Medications Times are shown in INSTRUCTOR BRIDGE. Scheduled Medication Order 06/27/2024 06/28/2024 06/29/2024 scopolamine [...] 0812 (New Bag - Prov ider: Liudmila Mcgrath RN)0900 (Paused - Provider: Priscilla Connolly CRNA - Comment: Switch to gravity)0901 (Restarted - Provider: Priscilla Connolly CRNA)0923 (Anesthesia Volume Adjustment - Provider: Priscilla Connolly CRNA)0935 (Stopped - Provider: Shira Rodriguez RN) Lactated Ringer's (LR) infusion 125 mL/hr, intravenous, Continuous, Starting on Sat06/29/24 at 1015, Phase I 0935 (Continued from OR - Provider: Shira Rodriguez RN)1011 (Stopped - Provider: Shira Rodriguez RN) PRN [...] mL, intra-catheter, As needed, line care, Flush Foxworth Block Hep Locks to keep vein open., [...] prochlorperazine (COMPAZINE) injection 5 mg 1 06/29/2024 ROPivacaine (NAROPIN) 5 mg/m L (0.5 %) preservative free injection 1 06/29/2024 scopolamine patch 72 hour 1 patch 1 024 sodium chloride 0.9% flush 0.5-20 mL 1 06/12 sodium chloride 0.9% irrigation 1 4 documented in this encounter Care Teams Animal Rehabilitator Relationship Specialty Start Date End Date Lucas Carter DO PCP - General Internal Medicine 08/15/22 documented as of this encounter
--- OUTSIDE RECORDS SUMMARY | 2024-08-17 01:52 | XMS_ITS | Encounter Summary ---
Author Organization [facility] Health Address [address] [place] [address] Care Team Providers Care Professor Of Theater Name Role Phone Damian Sadler MD Primary Care Provider [phone] Encounter Details Date Type Department Care Team (Latest Contact Info) Description 02/20/2024 11:25 AM CDT - 02/20/2024 11:59 PM T Hospital Encounter [facility] Imaging Services [address] [place] [address] Unknown, Provider Discharge Disposition: Home or Self Care Social [...] on file documented as of this encounter Medications at Time of Discharge [...] day after a meal. 30 capsule 02/03/2024 documented as of this encounter Plan of Treatment Not on file documented as of this encounter Procedures Procedure Name Priority Date/Time Associated Diagnosis Comments XR HAND BILAT 2VW Routine 02/20/2024 11: 45 AM CDT Polyarthralgia Numbness Myalgia, multiple sites Other low back pain Cervicalgia Other fatigue Encounter for long-term (current) use of high-risk medication XR SI JOINTS 3VW OR MORE Routine 02/20/2024 11:45 AM CDT Polyarthralgia Numbness Myalgia, multiple sites Other low back pain Cervicalgia Other fatigue Encounter for long-term (current) use of high-risk medication XR LUMBAR SPINE 2 OR 3VW Routine 02/20/2024 11:45 AM CDT Polyarthralgia Numbness Myalgia, multiple sites Other low back pain Cervicalgia Other fatigue Encounter for long-term (current) use of high-risk medication documented in this encounter Results * XR SI JOINTS 3VW OR MORE (02/20/2024 11:45 AM CDT) Anatomical Region Laterality Modality Pelvis, Lower Extremity [facility] 02/20/2024 12:0 0 PM CDT Impressions [...] M54.2: Cervicalgia. R53.83: Other fatigue. Z79.899: Other assisted (current) 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. Additional History: COMPARISON: None. [...] M54.2: Cervicalgia. R53.83: Other fatigue. Z79.899: Other assisted (current) 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. Additional History: COMPARISON: None. [...] M54.2: Cervicalgia. R53.83: Other fatigue. Z79.899: Other intermediate teacher (current) 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. Additional History: COMPARISON: None. [...] M54.2: Cervicalgia. R53.83: Other fatigue. Z79.899: Other assisted (current) 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. Additional History: COMPARISON: None. [...] M54.2: Cervicalgia R53.83: Other fatigue Z79.899: Other assisted (current) 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 Additional History: COMPARISON: None. [...] M54.2: Cervicalgia R53.83: Other fatigue Z79.899: Other intermediate teacher (current) 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 Additional History: COMPARISON: None. FINDINGS: There is no fracture. Alignment is normal. Joint spaces are normal. There is no appreciable soft tissue abnormality. There are no erosions. IMPRESSION: Normal hand radiographs. > Interpreting Provider: Darcy Alfaro MD on 02/20/2024 12:05 PM Nancy Cotto MD DIAGNOSTIC IMAGING O RDERABLES documented in this encounter Visit Diagnoses Diagnosis Polyarthralgia Pain in joint, multiple sites Numbness Disturbance of skin sensation Myalgia, multiple sites Other low back pain Cervicalgia Other fatigue Encounter for long-term (current) use of high-risk medication Encounter for long-term (current) use of other medications documented in this encounter Care Teams Professor Of Theater Relationship Specialty Start Date End Date Damian Sadler MD PCP - General Internal Medicine 07/04/16 documented as of this encounter
--- OUTSIDE RECORDS SUMMARY | 2024-08-17 01:52 | XMS_ITS | Encounter Summary ---
Author Organization [facility] Address [address] [place] [address] Phone Care Team Providers Care Air Motor Repairer Name Role Phone Lucas Carter DO Primary Care Provider [phone] Reason for Visit * Reason Comments Carpal Tunnel Follow-up Encounter Details Date Type Department Care Team (Late st Contact Info) Description 04/28/2024 8:50 AM CDT Office Visit [facility] Orthopaedic Surgery [address] [place] [address] Mynor Francisco MD [address] [facility] [address] Carpal tunnel syndrome, bilateral (Primary Dx) Social [...] on file Legal Sex Female 9:06 PM GOLF CART ATTENDANT Gender Identity Female 10/01/2023 8:44 AM GOLF CART ATTENDANT Sexual Orientation Straight 10/01/2023 8: 44 AM GOLF CART ATTENDANT documented as of this encounter Progress Notes * Mynor Francisco MD - 04/28/2024 8:50 AM CDT Images from the original note were not included. Subjective: Feeling well since surgery. No fevers or chills. No new injury. Not awakening at night with symptoms. Thumb still has some numbness but the others are good she says. Physical Examination: The patients hand has a well healing incision. Sutures are removed and steri-strips applied. No signs of infection. The patient can make a full fist and fires the thenar musculature normally. Assessment and Plan: The patient is doing very well following right carpal tunnel release. They have been instructed on scar massage and can expect aching to go down over the next month. I will see the patient back in 6 weeks. She also mentions having left knee pain that is really bothering her after sitting down awkwardly and really jamming the left knee. I gave her the phone number for an appointment with 1 of our other partners who treats knees. documented in this encounter Plan of Treatment [...] syndrome documented in this encounter Care Teams Air Motor Repairer Relationship Specialty Start Date End Date Lucas Carter DO PCP - General Internal Medicine 08/15/22 documented as of this encounter
--- OUTSIDE RECORDS SUMMARY | 2024-08-17 01:52 | XMS_ITS | Encounter Summary ---
Author Organization [facility] Healthcare Address [address] [place] [address] Care Team Prov[address] Care [address] Manager Name Role Phone Lucas Carter DO Primary Care Provider +1- [phone] Reason for Visit * Auth/Cert (Routine) Specialty Diagnoses / Procedures Referred By Lluvia t Referred To Contact Diagnoses Right carpal tunnel syndrome Right carpal tunnel syndrome [G56.01] Procedures [place] REVISE MEDIAN N/CARPAL TUNNEL SURG [place] NEUROPLASTY &/TRANSPOS MEDIAN NRV CARPAL TUNNE RIGHT CARPAL TUNNEL RELEASE Referral ID Status Reason Start Date Expiration Date Visits Re quested Visits Authorized [id number] 1 1 Encounter Details Date Type Department Care Team (Late st Contact Info) Description 04/20/2024 2:15 PM CDT - 04/20/2024 2:45 PM CDT Surgery [facility] [address] [place] [address] Mynor Francisco MD [address] [facility] [address] [place] [address] RIGHT CARPAL TUNNEL RELEASE Surgery Details Date/Time Status Location OR Service Patient Class Case Class Case Type Trauma Case? 04/20/2024 2:15 PM Posted [facility] OPERATING ROOM OR 5 Orthopaedics Outpatient Elective Panel 1 Procedure LRB Anes Op Region Wound Class Comments RIGHT CARPAL TUNNEL RELEASE Right Choice Wrist Cl ass I - Clean Surgeon Surgeon Role Service Panel Mynor Francisco MD Primary Orthopaedics 1 Nola Alarcon MD Resident - Assisting Orthopae dics 1 documented in this encounter Social History [...] on file Legal Sex Female 9:06 PM EXECUTIVE ADMIN Gender Identity Female 10/01/2023 8:44 AM EXECUTIVE ADMIN Sexual Orientation Straight 10/01/2023 8: 44 AM EXECUTIVE ADMIN documented as of this encounter Last Filed [...] Larose RN - 04/20/2024 1:[address] [facility] Hand & Microsurgery Division Do not [...] HOURS: Saturday - Saturday 8:00 - 4:30 Art Supervisor: Tania phone: [phone] AFTER HOURS/WEEKEND - EMERGENCIES ONLY (NO MEDICATION REFILLS): Medical Exchange: [phone] or toll-free Perioperative Narcotic Considerations The Orthopedic hand surgeons of [facility] manage perioperative pain as wellas the pain after an acute injury. Our surgeons do not manage chronic pain (pain three months afterthe injury/surgery), and will refer patients seeking longer term care for their painful condition to a pain management service or their primary physician as those physicians typically establish fpc treatment relationships with patients. Following elective hand [...] be called in to your pharmacy if ???[id number]-[id number]-[id number]??? anti- inflammatory pain medication do not decrease the pain even when taken on a regular basis. These can be called in during the hours 9am to 4pm, during the workweek. ???Alternative??? treatments such as acupuncture, meditation and biofeedback can all be used to decrease post-operative pain. The Orthopedic hand surgeons of [facility] want you to be as comfortable [...] interpretation of pain. The ???opioid epidemic??? in [place] is very real, and we as physicians [...] 1 tablet (25 mg total) by mouth county sheriff 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 losartan (COZAAR) 50 mg tabletIndications:hy pertension Take 1 tablet (50 mg total) by mouth 2 (two) times a day MULTIVIT-MINERALS/FE RROUS FUM (MULTI VITAMIN ORAL)Indications:hea lth Take 1 tablet by mouth county sheriff 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 nebivoloL (BYSTOLIC) 10 mg tabletIndications:hy pertension Take 1 tablet (10 mg total) by mouth every other day 01/03/2024 omeprazole (PriLOSEC) 20 mg capsuleIndications:T reatment of Non-Bleeding Gastric Disorder Take 1 capsule (20 mg total) by mouth county sheriff 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 ondansetron ODT (ZOFRAN-ODT) 4 mg [...] (NORVASC) 10 mg tablet 04/19/2024 03/03/24 -- Provider, MD Margarita cyclobenzaprine (FLEXERIL) 10 mg tablet 04/19/2024 01/29/24 -- Kevin Dunn MD Take 1 tablet (10 mg total) by mouth 3 (three) times a day as needed for muscle spasms Patient taking differently: Take 1 tablet (10 mg total) by mouth 3 (three) times a day as needed for muscle spasms hydroCHLOROthiazide (HYDRODIURIL) 25 mg tablet 04/20/2024 -- -- ProviderMargarita MD losartan (COZAAR) 50 mg tablet 04/20/2024 -- -- ProviderMargarita MD MULTIVIT-MINERALS/FERROUS FUM (MULTI VITAMIN ORAL) 04/20/2024 -- -- Margarita Bunch MD nebivoloL (BYSTOLIC) 10 mg tablet 04/19/2024 01/03/24 -- Margarita Bunch MD omeprazole (PriLOSEC) 20 mg capsule 04/19/2024 [...] Medication protocol when under care of a CAD INTERN Planned anesthesia: Regional as primary anesthetic and [...] the left. She does not have diabetes. Shesays she got a workup with her neck showing some pinching because she has had neck pain but they did not think it explains the hand and she was recommended to come get the hand treated before the neck. She says that she has had symptoms for probably 2 years with numbness and tingling. Getting worseover the last 6 months. Left side bothers her 2 to 3 times a week the right side is constant thumb through long finger always numb. This has been [...] related to her vertebrae in the low back. She did have a fall injuring the right side but got x-rays there was no fracture she says that isokay. She does take half of a Flexeril [...] motion negative Tinel over the cubital tunnel. Spurling maneuver causes pain on the right side of [...] Dr. Mynor Francisco dictating with Fluency Direct. Autocad Technician variances may occur. Mynor Francisco M.D. Professor Hand and Upper Extremity Surgery [facility] documented in this encounter Miscellaneous Notes [...] prior to discharge. * Op Note - Mynor Francisco MD - 04/20/2024 1:30 PM CDT SURGEON Mynor Francisco MD SALES SERVICE COORDINATOR Nola Alarcon MD PREOPERATIVE DIAGNOSIS Right carpal [...] that you and your doctor have chosen [facility] for your surgery. We hope the following information will help make your visit a pleasant one. The name of the building is [facility] in [place]. Directions to facility (address [place] [id number] [place] [address], [address] [facility] exit. Zip [address] When you enter the building, look directly to your left, you will see 2 glass double doors. These double doors say [address]. Go through those double doors and check in with the legal secretary receptionist. STATES HOME BP'S ARE NOW 120'S/80'S. [...] out. Instructed to patient to refer to [facility] surgery guide page 6 for any questions regarding eating and drinking day of surgery. For medications that the Nurse Practitioner instructed you to take on the morning of surgery, take the medications with a few sips of water. Pt's. MANSI [phone] OR BEST FRIEND ROBERTO will be with [...] Right carpal tunnel syndrome Carpal tunnel syndrome Right carpal tunnel syndrome Carpal tunnel syndrome documented in this encounter Admitting Diagnoses Diagnosis Right carpal tunnel syndrome Carpal tunnel syndrome documented in this encounter Administered Medications Inactive Administered Medications - up to 3 most recent administrations Medication Order MAR Action Action Date Dose Rate Site BUPivacaine (MARCAINE) 0.5 % (5 mg/mL) preservative free injection As needed, Starting on Sat04/20/24 at 1339, Intra-Op Given 04/20/2024 1:39 PM CDT 7 mL Surgical Site Lactated Ringer's (LR) infusion 30 mL/hr, intravenous, Continuous, Starting on Sat04/20/24 at 1245, Pre-Op Restarted 04/20/2024 1:38 PM CDT Rate/Dose Verify 04/20/2024 1:14 PM CDT 30 mL/h r New Bag 04/20/2024 12:35 PM CDT 30 mL/hr 30 mL/hr sodium chloride 0.9% irrigation As needed, Starting on Sat04/20/24 at 1335, Intra-Op Given 04/20/2024 1:35 PM CDT 120 mL documented in this encounter Discontinued Medications Medication [...] 0.9% irrigation (CANCELED) As needed, Starting on 04/20/24 at 1335, Intra-Op 1335 (Given - Provid er: Mnyor Francisco MD) documented in this encounter Orders Medications Ordered That Neo ht Not Have Been Administered Count Last [...] patch 72 hour 1 patch 1 024 documented in this encounter Care Teams Rd Manager Relationship Specialty Start Date End Date Lucas Carter DO PCP - General Internal Medicine 08/15/22 documented as of this encounter
--- OUTSIDE RECORDS SUMMARY | 2024-08-17 01:52 | XMS_ITS | Encounter Summary ---
Author Organization [facility] Health Address [address] [facility] [place] [address] Care Team Providers Care Commercial Engineer Name Role Phone Unknown, Provider Primary Care Provider Unavaila ble Encounter Details Date Type Department Care Team (Late st Contact Info) Description 08/31/2009 Hospital Encounter CG DEFAULT [address] [place] [address] Unknown, Provider Medical Inpatient Discharge Disposition: Home or Self Care Social History Tobacco Use Types Packs/Day Years Used Date Smoking Tobacco: Never Assessed Sex and Gender Information Value Date Recorded Sex Assigned at Not on file Gender Identity Not on file Sexual Orientation Not on file documented as of this encounter Miscellaneous Notes * Miscellaneous Scans - Document, Scanned - 05/24/2010 6:13 PM CDT documented in this encounter Plan of Treatment Not on file documented as of this encounter Visit Diagnoses Not on filedocumented in this encounter Care Teams Commercial Engineer Relationship Specialty Start Date End Date Unknown, Provider PCP - General 08/31/09 12/29/13 documented as of this encounter
--- OUTSIDE RECORDS SUMMARY | 2024-08-17 01:52 | XMS_ITS | CONTINUITY OF CARE DOCUMENT ---
Author Name [email or web address] Address Unknown Organization [facility] Address [address] [facility] [address] [place] [address] Phone [phone] Care Team Providers Care Family Preservation Worker Name Role Phone William CURIEL, Herlinda Unavailable SHAWNEE CURIEL, NABIL Schmidt Unavailable INSURANCE PROVIDERS Payer name Policy type / Coverage type Bj red libertarian [place] [employer] Medicaid [id number] [facility] [id number]
--- OUTSIDE RECORDS SUMMARY | 2024-08-17 01:52 | XMS_ITS | Encounter Summary ---
Author Organization [facility] Address [address] [place] [address] Phone Care Team Providers Care Wired Music Operator Name Role Phone Lucas Carter DO Primary Care Provider +1- [phone] Encounter Details Date Type Department Care Team (Late st Contact Info) Description 07/01/2024 Orders Only [facility] Orthopaedic Surgery [address] [facility] 2nd Floor [address] [place] [address] Mynor Francisco MD [address] [facility] [address] [place] [address] Social History Tobacco Use Types [...] on file Legal Sex Female 9:06 PM MESSENGER FLOORPERSON Gender Identity Female 10/01/2023 8:44 AM MESSENGER FLOORPERSON Sexual Orientation Straight 10/01/2023 8: 44 AM MESSENGER FLOORPERSON documented as of this encounter Plan of [...] on filedocumented in this encounter Care Teams Wired Music Operator Relationship Specialty Start Date End Date Lucas Carter DO PCP - General Internal Medicine 08/15/22 documented as of this encounter
--- OUTSIDE RECORDS SUMMARY | 2024-08-17 01:52 | XMS_ITS | Referral Summary ---
Author Organization [facility] Address [address] [place] [address] Care Team Providers Care Terrazzo Roller Name Role Phone Lucas Carter DO Primary Care Provider +1- [phone] Encounters Date Type Department Care Team Description 07/07/2024 10:10 AM INTERACTIVE MEDIA SPECIALIST Office Visit [facility] Orthopaedic Surgery [address] [place] [address] 2nd Floor [address] [place] [phone] Mynor Francisco MD Carpal tunnel syndrome, bilateral (Primary Dx) 07/01/2024 Orders Only [facility] Orthopaedic Surgery [address] [place] [address] Floor [address] [place] [phone] Mynor Francisco MD 06/29/2024 9:00 AM INTERACTIVE MEDIA SPECIALIST - 06/29/2024 9:30 AM INTERACTIVE MEDIA SPECIALIST Surgery [facility] Operating Room at the Orthopedic [address] [address] Mynor Francisco MD LEFT CARPAL TUNNEL RELEASE 06/29/2024 9:01 AM INTERACTIVE MEDIA SPECIALIST Anesthesia Event [facility] Operating Room at the Orthopedic [address] [address] Mynor Perez MD Sargent, Brooke Lynae, NP 06/29/2024 7:02 AM INTERACTIVE MEDIA SPECIALIST - 06/29/2024 10:31 AM INTERACTIVE MEDIA SPECIALIST Hospital Encounter [facility] [address] [place] [id number] Mynor Francisco MD Left carpal tunnel syndrome (Primary Dx) Discharge Disposition: Discharge to home or self care from Last 3 Months Allergies Active Allergy Reactions Criticality Noted Date Comments Hydralazine Headache,Vomiting Low 01/21/2024 Ketorolac Hives,Itching Medium 10/17/2017 Tramadol Hives,Urticaria Medium 08/27/2016 Medications omeprazole (PriLOSEC) 20 mg capsuleIndications :Treatment of Non-Bleeding Gastric Disorder Take 1 capsule (20 mg total) by mouth special certificate dictator 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 Active MULTIVIT-MINERALS/ FERROUS FUM (MULTI VITAMIN ORAL)Indications:h ealth Take 1 tablet by mouth special certificate dictator 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 Active ondansetron ODT (ZOFRAN-ODT) 4 [...] 1 tablet (25 mg total) by mouth special certificate dictator 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 Active nebivoloL (BYSTOLIC) 10 mg [...] (10 mg total) by mouth nightly 03/03/20 24 Active pregabalin (LYRICA) 150 mg capsule TAKE [...] as needed for pain 8 tablet 07/01/20 Active Active Problems Problem Noted Date Diagnosed [...] 01/06/2016 Fracture of head of radius 08/31/2014 Immunizations Name Administration Dates Next Due Influenza, Trivalent, Preservative Free, Intramu scular 05/12/2015 Social History Tobacco Use Types Packs/Day Years [...] on file Legal Sex Female 9:06 PM INTERACTIVE MEDIA SPECIALIST Gender Identity Female 10/01/2023 8:44 AM INTERACTIVE MEDIA SPECIALIST Sexual Orientation Straight 10/01/2023 8: 44 AM INTERACTIVE MEDIA SPECIALIST Last Filed Vital Signs Vital Sign Reading Time Taken Comments Blood Pressure 125/82 06/29/2024 10:05 AM INTERACTIVE MEDIA SPECIALIST Pulse 75 06/29/2024 10:05 AM INTERACTIVE MEDIA SPECIALIST Temperature 36.2 ??C (97.2 ??F) 06/29/2024 9:28 AM CS T Respiratory Rate 15 06/29/2024 10:0 5 AM INTERACTIVE MEDIA SPECIALIST Oxygen Saturation 96% 06/29/2024 10: 05 AM INTERACTIVE MEDIA SPECIALIST Inhaled Oxygen Concentration - - Weight 83.4 kg (183 lb 12.8 oz) 06/29/2024 7:50 AM INTERACTIVE MEDIA SPECIALIST Height 160 cm (5' 3 ) 06/29/2024 7:50 AM INTERACTIVE MEDIA SPECIALIST Body Mass Index 32.56 06/29/2024 7:50 AM INTERACTIVE MEDIA SPECIALIST Plan of Treatment Not on file Goals Goal Patient Goal Type Associated Problems [...] home safety. Medical Devices Implanted Type Area Cinder Pit Worker Device Identifier Shelf Expiration Date Model / Serial / Lot Screw Left: Elbow Procedures Procedure Name Priority Date/Time Associated Diagnosis Comments NE AN PROCEDURE PLACEHOLDER Routine 06/29/2024 9:09 AM INTERACTIVE MEDIA SPECIALIST RELEASE CARPAL TUNNEL 06/29/2024 9:03 AM INTERACTIVE MEDIA SPECIALIST Left carpal tunnel syndrome POCT PREOP SCREEN ([id number] BG-HCT) Routine 06/29/2024 8:12 AM INTERACTIVE MEDIA SPECIALIST from Last 3 Months Results * NE AN PROCEDURE PLACEHOLDER (06/29/2024 9:09 AM INTERACTIVE MEDIA SPECIALIST) Narrative Priscilla Connolly CRNA - 06/29/2024 9:09 AM INTERACTIVE MEDIA SPECIALIST Priscilla Connolly CRNA ? 06/29/2024 ??9:10 AM [place] Block Anesthesia Reason for block: primary anesthetic Staff: Placed by: LABORER [employer]Y [employer]ARM: Priscilla Connolly CRNA Procedure prep: Preprocedure checklist: ??patient identified, patient appropriate for plan, informed consent obtained, surgical consent, risks and benefits discussed, monitors and equipment checked and timeout performed Prep solution: chlorhexadine/alcohol [place] block: Site: left upper extremity Medication injected through: IV placed preoperatively IV gauge: 22g Procedure details: tourniquet - single cuff, esmarch applied to extremity, tourniquet inflation verified, local anesthetic injected, injection IV removed and patient tolerated procedure well Assessment: Events: patient tolerated procedure well without complications us Mynor Perez MD ANESTHESIA ORDERABLES Final Resu lt * POCT Preop screen ([id number]-[id number]-Em-Def-Hct) (06/29/2024 8:12 AM INTERACTIVE MEDIA SPECIALIST) [facility] K POC 3.7 3.3 - 4.9 mmol/L Comment: Interpretive Data This method is not able to assess for hemolysis, which may falsely increase potassium concentrations. If further testing is needed to evaluate this result, consider in-laboratory plasma potassium. Current Interpretive Data was last revised on 2022. Blood 06/29/2024 8:12 AM INTERACTIVE MEDIA SPECIALIST 06/29/2024 8:12 AM INTERACTIVE MEDIA SPECIALIST us Mynor Francisco MD LAB POCT ORDERABLES - DEV ICE Final Result [facility] [address] [facility] [place] [address] from Last 3 Months Insurance [employer] CHOICE PLUS [facility] Advance Directives For more information, please contact: [phone] * Full Code (Latest Code Status on File) Date Activated Date Inactivated Comments 08/15/2022 3:10 PM 08/18/2022 6:09 PM Care Teams Terrazzo Roller Relationship Specialty Start Date End Date Lucas Carter DO PCP - General Internal Medicine 08/15/22
--- OUTSIDE RECORDS SUMMARY | 2024-08-17 01:52 | XMS_ITS | Encounter Summary ---
Author Organization [facility] Healthcare Address [address] [place] [address] Care Team Providers Care Clinical Instructor Name Role Phone Lucas Carter DO Primary Care Provider [phone]- [phone] Reason for Visit * Auth/Cert (Routine) Specialty Diagnoses / Procedures Referred By Contsandhya t Referred To Contact Diagnoses Right carpal tunnel syndrome Right carpal tunnel syndrome [G56.01] Procedures NM REVISE MEDIAN N/CARPAL TUNNEL SURG NM NEUROPLASTY &/TRANSPOS MEDIAN NRV CARPAL TUNNE RIGHT CARPAL TUNNEL RELEASE Referral ID Status Reason Start Date Expiration Date Visits Re quested Visits Authorized [id number] 1 1 Encounter Details Date Type Department Care Team (Late st Contact Info) Description 04/20/2024 1:14 PM CDT Anesthesia Event [facility] [address] [place] [id number] Keara Cee MD [address] [place] [address] Alejandra Quispe NP [address] [facility] [phone] [place] [address] Anesthesia Record Procedure Summary Procedure Name Responsible Anesthesiologist Anesthesia Start Time Anesthesia Stop Time RIGHT CARPAL TUNNEL RELEASE (Right: Wrist) Keara Cee MD 04/20/24 1314 04/20/24 1346 Events Date Time Event Comment 04/20/2024 1220 AN Equip Check 1246 1314 An Start 1318 In Room 1318 An Start Data 1318 Start Supplemental O2 1320 Time out - Regional 1322 An Block Induction The patie nt was reevaluated immediately before moderate or deep sedation and before anesthesia induction. 1322 Kelly block placed 1322 Proc Start 1324 Anesthesia Ready 1330 Incision Start 1340 Proc Fin 1341 an stop data 1342 Out of Room 1346 Handoff to RN I completed my handoff [...] Patient disposition at the time of handoff: No value filed. 1346 An Stop Meds Name Total midazolam 2 mg/2 mL 2 mg fentaNYL PF 100 mcg propofol 40 mg lidocaine 0.5% PF 30 mL Lactated Ringer's (LR) infusion 600 mL * Agents Name O2 N2O Air * Blood No blood administrations on file. Lines, Drains, and Airways Type Details Placement Removal Peripheral IV Placement Date: 05/05; Placement Time: 1235; Catheter Size: 20 G; Orientation: Left, Posterior; Location: Hand; Site Prep: Chlorhexidine; Technique: Anatomical landmarks; Inserted by: KHADAR Bates; Insertion Attempts: 1; Patient Tolerance: Tolerated well; Removal Date: 04/20/24; Removal Time: 1435 (angiocth intact, no redness at site, dressing applied) 04/20/24 1235 by Jana Lombardo RN 04/20/24 1435 by Sudha Larose RN Peripheral IV Placement Date: 05/05; Placement Time: 1240; Catheter Size: 22 G; Orientation: Posterior, Right; Location: Hand; Site Prep: Chlorhexidine; Technique: Anatomical landmarks; Inserted by: KHADAR Bates; Insertion Attempts: 1; Patient Tolerance: Tolerated well; Removal Date: 04/20/24; Removal Time: 1340; Removal Reason: Therapy completed 04/20/24 1240 by Jana Lombardo RN 04/20/24 1340 by Sudha Larose RN Wound 04/20/24; 1330; N; Incision; Palm; Right; 04/20/24; 1438 04/20/24 1330 by Raine Lang RN 04/20/24 1438 by Sudha Larose RN documented in this encounter Social History [...] on file Legal Sex Female 9:06 PM CASINO HOST Gender Identity Female 10/01/2023 8:44 AM CASINO HOST Sexual Orientation Straight 10/01/2023 8: 44 AM CASINO HOST documented as of this encounter OR Notes * Anesthesia Postprocedure Evaluation - Keara Cee MD - 04/20/2024 2:08 PM CDT Patient: Renee Luke Procedure Summary Date: 04/20/24 Room / Location: [facility] OPERATING ROOM 5 / [facility]PER[facility] Anesthesia Start: 1314 Anesthesia Stop: 1346 Procedure: RIGHT CARPAL TUNNEL RELEASE (Right: Wrist) Diagnosis: Right carpal tunnel syndrome (Right carpal tunnel syndrome [G56.01]) Providers: Mynor Francisco MD Responsible Provider: Keara Cee MD Anesthesia Type: regional as primary anesthetic, IV regional ASA Status: 2 Anesthesia Type: regional as primary anesthetic, IV regional Last vitals BP 124/93 Pulse 88 Temp 36.4 ??C (97.5 ??F) (Temporal) Resp 19 SpO2 94% Anesthesia Post Evaluation Patient location during evaluation: PACU Patient participation: complete - patient participated Level of consciousness: fully awake Pain score: 0 Pain management: adequate Airway patency: adequate Evidence of recall: no Cardiovascular status: hemodynamically stable and acceptable Respiratory status: acceptable and room air Hydration status: acceptable Pt is: normothermic Nausea/Vomiting status: none No notable events documented. * Anesthesia Procedure Notes - Janice Giles CRNA - 04/20/2024 1:25 PM CDTAssociated Order(s): [place] Block Anesthesia [place] Block Anesthesia Reason for block: primary anesthetic Procedure prep: Preprocedure checklist: patient identified, patient appropriate for plan, informed consent obtained, surgical consent, risks and benefits discussed, monitors and equipment checked and timeout performed Prep solution: alcohol Kelly block: Site: right upper extremity Other site: forearm Medication injected through: IV placed preoperatively IV gauge: 22g Procedure details: tourniquet - single cuff, esmarch applied to extremity, tourniquet inflation verified, local anesthetic injected, injection IV removed and patient tolerated procedure well Tourniquet inflation pressure: 250 mmHg Assessment: Events: patient tolerated procedure well without complications * Anesthesia Preprocedure Evaluation - Keara Cee MD - 04/20/2024 12:46 [...] (NORVASC) 10 mg tablet 04/19/2024 03/03/24 -- ProviderMargarita MD cyclobenzaprine (FLEXERIL) 10 mg tablet 04/19/2024 [...] FUM (MULTI VITAMIN ORAL) 04/20/2024 -- -- ProviderMargarita MD nebivoloL (BYSTOLIC) 10 mg tablet 04/19/2024 01/03/24 -- Margarita Bunch MD omeprazole (PriLOSEC) 20 mg capsule 04/19/2024 -- -- Margarita Bunch MD ondansetron ODT (ZOFRAN-ODT) 4 mg disintegrating tablet Past Month 08/10/23 -- Jamila Clements PA Take 1 tablet (4 mg total) by mouth every 8 (eight) hours as needed for nausea or vomiting pregabalin (LYRICA) 150 mg capsule Past Week 01/29/24 -- SanKevin rizzo MD Take 1 capsule (150 mg total) [...] Medication protocol when under care of a SALES COMPENSATION ANALYST Planned anesthesia: Regional as primary anesthetic and [...] and agree to proceed. All questions answered. documented in this encounter Plan of Treatment [...] on stairs Contact your local community or [facility] for information on exercise, fall prevention programs, or options for improving home safety. documented as of this encounter Procedures Procedure Name Priority Date/Time Associated Diagnosis Comments NM AN PROCEDURE PLACEHOLDER Routine 04/20/2024 1:25 PM CDT documented in this encounter Results * NM AN PROCEDURE PLACEHOLDER (04/20/2024 1:25 PM CDT) Narrative Janice Giles CRNA - 04/20/2024 1:25 PM CDT Janice Giles CRNA ? 04/20/2024 ??1:25 PM [place] Block Anesthesia Reason for block: primary anesthetic Procedure prep: Preprocedure checklist: ??patient identified, patient appropriate for plan, informed consent obtained, surgical consent, risks and benefits discussed, monitors and equipment checked and timeout performed Prep solution: alcohol Kelly block: Site: right upper extremity Other site: forearm Medication injected through: IV placed preoperatively IV gauge: 22g Procedure details: tourniquet - single cuff, esmarch applied to extremity, tourniquet inflation verified, local anesthetic injected, injection IV removed and patient tolerated procedure well Tourniquet inflation pressure: 250 mmHg Assessment: Events: patient tolerated procedure well without complications Keara Cee MD ANESTHESIA ORDERABLES Fi nal Result documented in this encounter Visit Diagnoses Not on filedocumented in this encounter Administered Medications Inactive Administered Medications - up to 3 most recent administrations Medication Order MAR Action Action Date Dose Rate Site fentaNYL (SUBLIMAZE) preservative free injection intravenous, As needed, Starting on Sat04/20/24 at 1314, Anesthesia Intra-op Given 04/20/2024 1:14 PM CDT 100 mcg Lactated Ringer's (LR) infusion 30 mL/hr, intravenous, Continuous, Starting on Sat04/20/24 at 1245, Pre-Op Restarted 04/20/2024 1:38 PM CDT Rate/Dose Verify 04/20/2024 1:14 PM CDT 30 mL/h r New Bag 04/20/2024 12:35 PM CDT 30 mL/hr 30 mL/hr lidocaine (PF) (XYLOCAINE) 5 mg/mL (0.5 %) preservative free injection intravenous, As needed, Starting on Sat04/20/24 at 1322, Anesthesia Intra-op, Indications: Administration of Local AnesthesiaIndications:Administration of Local Anesthesia Given 04/20/2024 1:22 PM CDT 30 mL midazolam (VERSED) 1 mg/mL injection intravenous, As needed, Starting on Sat04/20/24 at 1314, Anesthesia Intra-op Given 04/20/2024 1:14 PM CDT 2 mg propofoL (DIPRIVAN) 10 mg/mL IV intravenous, As needed, Starting on Sat04/20/24 at 1320, Anesthesia Intra-op Given 04/20/2024 1:33 PM CDT 10 mg Given 04/20/2024 1:29 PM CDT 10 mg Given 04/20/2024 1:26 PM CDT 5 mg documented in this encounter Care Teams Clinical Instructor Relationship Specialty Start Date End Date Lucas Carter DO PCP - General Internal Medicine 08/15/22 documented as of this encounter
--- OUTSIDE RECORDS SUMMARY | 2024-08-17 01:52 | XMS_ITS | Encounter Summary ---
Author Organization [facility] Address [address] [place] [address] Care Team Providers Care Litigation Services Manager Name Role Phone Damian Sadler MD Primary Care Provider [phone] Reason for Visit * Reason Onset Date Comments Referral 02/12/2024 Encounter Details Date Type Department Care Team (Late st Contact Info) Description 02/12/2024 Telephone [facility] Medical [facility] - Rheumatology [address] [place] [address], [address] [place] [address] Group, [facility] Medical Referral Social History Tobacco Use Types Packs/Day Years [...] encounter Miscellaneous Notes * Telephone Encounter - Mynor Ambrosio RN - 02/19/2024 9:52 AM CDT Patient scheduled for 02/20/[address] 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 * Telephone Encounter - Mynor Ambrosio RN - 02/18/2024 10:09 AM CDT Patient called, no answer, unable to LMOR for patient to contact the office back in order to request additional office notes to support referral and labs if drawn. Called referral x2. * Telephone Encounter - Mynor Ambrosio RN - 02/12/2024 10:25 AM CDT Received a referral in the electronic workque from Dr. Lucas Carter requesting patient be evaluated by rheumatology for polyarthralgia. Patient called, no answer, unable to LMOR for patient to contact the office back in order to request additional office notes to support referral and labs if drawn. Called referral x1. documented in this encounter Plan of Treatment Not on file documented as of this encounter Visit Diagnoses Not on filedocumented in this encounter Care Teams Litigation Services Manager Relationship Specialty Start Date End Date Damian Sadler MD PCP - General Internal Medicine 07/04/16 documented as of this encounter
--- OUTSIDE RECORDS SUMMARY | 2024-08-17 01:52 | XMS_ITS | Encounter Summary ---
Author Organization [facility] Address [address] [facility] [place] [address] Care Team Providers Care Wet Machine Cutter Name Role Phone Unknown, Provider Primary Care Provider Unavaila ble Encounter Details Date Type Department Care Team (Latest Contact Info) Description 09/20/2009 10:15 AM ADDICTION NURSE - 09/20/2009 11:59 PM ADDICTION NURSE Hospital Encounter HC EVAL/TRTMNT [address] [place] [address] Arvin Anderson MD [address] [facility] [address] [place] [address] Obstetrics Discharge Disposition: Home or Self Care Social History Tobacco Use Types Packs/Day Years Used Date Smoking Tobacco: Never Assessed Sex and Gender Information Value Date Recorded Sex Assigned at Not on file Gender Identity Not on file Sexual Orientation Not on file documented as of this encounter Progress Notes * Nan Ashley MD - 09/20/2009 11:25 AM CST Echocardiography Report: Institution: [facility] Tape/CD Number: Perinatologist: Referring Physician: Arvin Andesron Indications: Family history of CHD : single Estimated Date of Delivery: 12/23/2009 Age 25 w 4 d Doppler Pulsatility Index Umbillical artery 1.61 Ductus arteriosus 2.71 Aortic isthmus 3.12 Ductus venosus 1.19 Middle cerebral artery Umbillical artery (systolic/diastolic): Doppler Velocity (meters/second) E wave A wave Biventricular Diameter 2.5 mm Mitral valve 39 cm/sec 43 cm/sec Heart Rate bpm Tricuspid valve 32 cm/sec 49 cm/sec Cardiac thoracic ratio 0.5 Maximal velocity Aortic valve cm/sec Left Ventricular shortening fraction Pulmonic valve cm/sec Functional Studies Rt. ventricle: Myocardial performance index GA interval heart failure score 10 Lft. ventrical: Myocardial perf. index Oxygen Test Done (via non-rebreather mask) Room Air With oxygen Right Pulmonary artery pulsatility index 3.63 Left pulmonary arteryPA Plx Ductal Plx 2.71 Morphology Normal: There was normal heart anatomy and hemodynamics. There was normal heart size and situs. There was normal atrio-ventricular and ventriculo-arterial connections. There was normal systemicvenous and pulmonary venous return. There was normal relatonship of the great vessels with normal flow velocity across the outlow tract. A normal ductus arteriosus and aortic arch was appreciated. There was normal sinus rhythm. There was normal flow in the umbilical vessels and ductus venosus. Diagnosis: Normal intracardiac anatomy. Recommendations Follow as needed. Limitations of Echocardiography: Follwing factors may interfere with optimum evaluation of the heart: 1. Poor acoustic window due to increased amniotic fluid, acoustic impedance and scatter due to adipose tissue, lie and multiple pregnancies. 2. Some cardiac malformations may not be ruled out or diagnosed with certainty due to false positive and false negative findings: e.g., small ventricular septal defect, mild valvular and supravalvular lesions of outflow tracts, coarctation of the aorta, total anomalous pulmonary venous connections,ect. CTION NURSE documented in this encounter Procedure Notes * Document, Scanned - 09/20/2009 12:00 AM CSTAssociated Order(s): IMAGING/RADIOLOGY/XRAY RESULTS ORDER documented in this encounter Miscellaneous Notes * Miscellaneous Scans - Document, Scanned - 09/20/2009 12:00 AM ADDICTION NURSE * Miscellaneous Scans - Document, Scanned - 09/20/2009 12:00 AM ADDICTION NURSE documented in this encounter Plan of Treatment Not on file documented as of this encounter Procedures Procedure Name Priority Date/Time Associated Diagnosis Comments IMAGING/RADIOLOGY/X RAY RESULTS ORDER 10/20/2009 6:02 AM ADDICTION NURSE documented in this encounter Results * IMAGING/RADIOLOGY/XRAY RESULTS ORDER (10/20/2009 6:02 AM ADDICTION NURSE) Anatomical Region Laterality Modality Other Narrative 10/20/2009 6:02 AM ADDICTION NURSE Ordered by an unspecified provider. Transcriptions Document, Scanned - 09/20/2009 12:00 AM ADDICTION NURSE Scanned Document IMAGING documented in this encounter Visit Diagnoses Not on filedocumented in this encounter Care Teams Wet Machine Cutter Relationship Specialty Start Date End Date Unknown, Provider PCP - General 08/31/09 12/29/13 documented as of this encounter
--- OUTSIDE RECORDS SUMMARY | 2024-08-17 01:53 | XMS_ITS | Encounter Summary ---
Author Organization [facility] Address [address] [facility] [address] [place] [address] Phone Care Team Providers Care Proctologist Name Role Phone Lucas Carter DO Primary Care Provider [phone] Reason for Visit * Reason Onset Date Comments Referral [facility] 11/14/2023 Encounter Details Date Type Department Care Team (Late st Contact Info) Description 11/14/2023 Telephone [facility] Orthopaedic Surgery [address] [facility] [address]th [place] [address] [place] [address] Lucas Das MD [address] [facility] [id number] [place] [address] Referral [facility] Social History Tobacco Use Types Packs/Day Years Used Date Smoking Tobacco: Every Day Cigarettes 0.5 32.8 Started: 11/11/1991 Smokeless Tobacco: Never Alcohol Use Standard Drinks/Week Comments No 0 (1 standard drink = 0.6 oz pur e alcohol) Personal Safety Answer Date Recorded Have you ever been in or are you currently in a harmful physical or emotional relationship or is someone making you feel afraid or unsafe? Denies 11/11/2023 Comments No Sex and Gender Information Value Date Recorded Sex Assigned at Not on file Legal Sex Female 9:06 PM UNIVERSITY REGISTRAR Gender Identity Female 10/01/2023 8:44 AM UNIVERSITY REGISTRAR Sexual Orientation Straight 10/01/2023 8: 44 AM UNIVERSITY REGISTRAR documented as of this encounter Miscellaneous Notes * Telephone Encounter - Bernabe Hensley CMA - 11/19/2023 12:40 PM CDT I tried calling Renee once again but got her vm. I left her another message with my p# for a r/t call to get scheduled with the [facility]. * Telephone Encounter - Bernabe Hensley CMA - 11/14/2023 1:05 PM CDT I tried calling to get Renee scheduled with the [facility] but had to leave a message for a return call. I left my ph# for a the return call. documented in this encounter Plan of Treatment Not on file documented as of this encounter Visit Diagnoses Not on filedocumented in this encounter Care Teams Proctologist Relationship Specialty Start Date End Date Lucas Carter DO PCP - General Internal Medicine 08/15/22 documented as of this encounter
--- OUTSIDE RECORDS SUMMARY | 2024-08-17 01:53 | XMS_ITS | Encounter Summary ---
Author Organization [facility] Address [address] [place] [address] Phone Care Team Providers Care Head Bone Grinder Name Role Phone Lucas Carter DO Primary Care Provider [phone] Encounter Details Date Type Department Care Team (Late st Contact Info) Description 04/02/2024 Telephone [facility] Orthopaedic Surgery [address] [facility] 1st [address] [place] [address] Mynor Francisco MD [address] [place] [address] Social History Tobacco Use Types Packs/Day Years Used Date Smoking Tobacco: Every Day Cigarettes 0.5 32.8 Started: 11/11/1991 Smokeless Tobacco: Never Alcohol Use Standard Drinks/Week Comments No 0 (1 standard drink = 0.6 oz pur e alcohol) AUDIT-C Answer Date Recorded Q1: How often do you have a drink containing alcohol? Never 04/01/2024 Q2: How many drinks containi ng alcohol do you have on a typical day when you are drinking? Patient does not drink Q3: How often do you have si x or more drinks on one occasion? Never 04/01/2024 Personal Safety Answer Date Recorded Have you ever been in or are you currently in a harmful physical or emotional relationship or is someone making you feel afraid or unsafe? Denies 01/21/2024 Comments No Sex and Gender Information Value Date Recorded Sex Assigned at Not on file Legal Sex Female 9:06 PM FILER METAL PATTERNS Gender Identity Female 10/01/2023 8:44 AM FILER METAL PATTERNS Sexual Orientation Straight 10/01/2023 8: 44 AM FILER METAL PATTERNS documented as of this encounter Miscellaneous Notes * Telephone Encounter - Elizabeth Escobar CMA - 04/02/2024 8:14 AM CDT I tried to reach out to Renee in regard to her insurance. It looks like currently she does not haveany active insurance on file. I attempted to reach her to see if she is going to do the surgery as self pay? I was unable to reach her and her mailbox is full. I will try to reach her via my chart. documented in this encounter Plan of Treatment [...] on filedocumented in this encounter Care Teams Head Bone Grinder Relationship Specialty Start Date End Date Lucas Carter DO PCP - General Internal Medicine 08/15/22 documented as of this encounter
--- OUTSIDE RECORDS SUMMARY | 2024-08-17 01:53 | XMS_ITS | Encounter Summary ---
Author Organization [facility] Healthcare Address [address] [place] [address] Care Team Providers Care Bone Grinder Name Role Phone Lucas Carter DO Primary Care Provider [phone]- [phone] Reason for Visit * Reason Comments Follow-up Encounter Details Date Type Department Care Team (Latest Contact Info) Description 03/26/2024 9:58 AM CDT - 03/26/2024 11:59 PM CDT Hospital Encounter [facility] [address], [address] [place] [address] Kevin Dunn MD [address] [address] Chronic pain syndrome (Primary Dx); Cervicalgia Discharge Disposition: Discharge to home or self [...] on file Legal Sex Female 9:06 PM [employer] Gender Identity Female 10/01/2023 8:44 AM [employer] Sexual Orientation Straight 10/01/2023 8: 44 AM [employer] documented as of this encounter Last Filed Vital Signs Vital Sign Reading Time Taken Comments Blood Pressure - - Pulse 86 03/26/2024 10:01 AM CDT Temperature 36.4 ??C (97.6 ??F) 03/26/2024 10:01 AM C DT Respiratory Rate 18 03/26/2024 10:01 AM CDT Oxygen Saturation 96% 03/26/2024 10:01 AM CDT Inhaled Oxygen Concentration - - Weight 81.6 kg (180 lb) 03/26/2024 10:01 AM CDT Height - - Body Mass Index 31.89 11/11/2023 9:51 PM CDT documented in this encounter Discharge Instructions * Patient Instructions* Usha Curiel RN - 03/26/2024 10:00 AM CDT [facility] DISCHARGE INSTRUCTIONS [phone] (Saturday-Saturday 7:30 am - 4:00 pm) PLAN: Start Celebrex 200 mg once a day FOLLOW UP: 6 weeks The [facility] is committed to providing your medication refills in a timely manner. When submitting a refill request, please note the following guidelines: Federal guidelines recommend patients with chronic pain, for whom opioid medications are prescribed, be evaluated at least once every two-three months.The [facility] adheres to these guidelines and patients should plan to be seen at least every two-three months (or more frequently, as deemed appropriate by the prescribing provider). To allow timely scheduling of evaluations, please contact the office to schedule your appointment 6-8 weeks in advance. For all opioid/narcotic prescription refills, please contact the [facility] at least 7 days prior to the date of need. Call [phone] choose option #5 and leave the following information: Name, date of , and phone number Name(s) of the medication(s) needing refill Name and number for the pharmacy where the refill(s) should be sent All non-opioid/non-narcotic refill requests should be submitted directly to the pharmacy. The pharmacy will then contact the [facility] with the necessary information. For any questions about your visit or your procedure, please call the [facility] Management Center [phone] (Saturday-Saturday 7:30 am - 4:00 pm). Please leave a message on the Nurse Line for ALL Non Urgent matters (option #5). If you have an urgent matter during normal business hours please choose option #4 for current patients. If you need urgent attention after 4 pm, on the weekends, or a holiday that can not wait until the office opens: Please call 911 or go to the nearest Emergency Room. * Attachments The following attachments cannot be sent through Care Everywhere. * Celecoxib (By mouth) (Gambian) documented in this encounter Medications at Time [...] 1 tablet (25 mg total) by mouth metal reclamation kettle tender 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 losartan (COZAAR) 50 mg tabletIndications:hy pertension Take 1 tablet (50 mg total) by mouth 2 (two) times a day MULTIVIT-MINERALS/FE RROUS FUM (MULTI VITAMIN ORAL)Indications:hea lth Take 1 tablet by mouth metal reclamation kettle tender 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 nebivoloL (BYSTOLIC) 10 mg tabletIndications:hy pertension Take 1 tablet (10 mg total) by mouth every other day 01/03/2024 omeprazole (PriLOSEC) 20 mg capsuleIndications:T reatment of Non-Bleeding Gastric Disorder Take 1 capsule (20 mg total) by mouth metal reclamation kettle tender 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 ondansetron ODT (ZOFRAN-ODT) 4 mg disintegrating tablet Take 1 tablet (4 mg total) by mouth every 8 (eight) hours as needed for nausea or vomiting 20 tablet 08/10/2023 celecoxib (CeleBREX) 200 mg capsule Take 1 capsule (200 mg total) by mouth daily 30 capsule 03/26/2024 4 pregabalin (LYRICA) 150 mg capsule Take 1 capsule (150 mg total) by mouth 2 (two) times a day 60 capsule 2 01/29/2024 4 sulfamethoxazole-tri methoprim (BACTRIM DS) 800-160 mg per tabletIndications:Up per Respiratory/HEENT Infection Take 1 tablet by mouth as needed 01/20/2024 4 tamsulosin (FLOMAX) 0.4 mg extended release capsuleIndications:U rolithiasis Take 1 capsule (0.4 mg total) by mouth daily as needed (Kidney stones) 4 varenicline tartrate (CHANTIX RON) 0.5 mg (11)- 1 mg (42) tablet Take by mouth as directed 02/21/2024 4 documented as of this encounter Ordered Prescriptions Prescription Sig Dispense Quantity Refills Last Filled Start Date End Date celecoxib (CeleBREX) 200 mg capsule Take 1 capsule (200 mg total) by mouth daily 30 capsule 03/26/2024 4 documented in this encounter Discharge Disposition Disposition Code Departure Means Destination Discharge to home or self care documented in this encounter Progress Notes * Kevin Dunn MD - 03/26/2024 10:00 AM CDT Patient Name: Renee Luke : 1980 Today's Date: 03/26/2024 PCP: Lucas Carter DO Referring: Lucas Carter DO Chief Complaint Patient presents with Follow-up Historical Information: Ms. Renee Luke is a 44 y.o. female who was referred for consultation regarding treatment recommendations for management of low back pain and neck pain. Patient has a very long history of this dating back at least a decade. Patient was previously seen by Dr. Brown and underwent some sort of cervical injections which she reports helped for about 3 months at a time. Patient was also seen by physiatry somewhat briefly here. The worst of her pain is in her neck. Patient reports limited range of motion turning her neck [id number] in addition to looking up. Patient reports that when she looks down she feels a shooting pain traveled down her back down the bilateral lower extremities. Fortunately, the patient has had an MRI of her cervical spine--as well as lumbar and thoracic spines--which does not show any demyelinating lesions that would necessarily explain that symptom. In addition, she has had cervical spine films that show no translation on flexion or extension. I also did try to discuss some of her findings of the MRI cervical spine that while she does have some age-related changes that they are overall pretty mild. For the patient's low back pain, she reports that this is overall a little bit more manageable for her--we did not talk all that much about this--however, she describes this as more like sciatica. Finally, patient reports hqazr-drfmhns-khfx-left symptoms consistent with carpal tunnel. She will be evaluated by ortho surgery for this. Patient reports previously being on Flexeril, hydrocodone, and gabapentin which he feels as though the combination of those medications essentially eliminated her pain--or at least that is what she reports today. Previous injections: Unknown cervical Prior pain medications: Gabapentin Lyrica Duloxetine Tramadol APAP Ibuprofen Naproxen Meloxicam Flexeril Physical Therapy: Has completed 6 weeks of PT within the past 6 months October 2023 for neck, November 2023 for low back Imaging: IMPRESSION: 1. Slight interval increase in left central C4-C5 disc protrusion now effacing the anterior and posterior thecal sac and creating subtle deformity of the anterior margin of the spinal cord. Cervical spinal cord signal intensity remains normal. Stable mild C5-C6 degenerative disc disease above a C6-C7 congenital interbody fusion. 2. T10-T11 and T11-T12 leptomeningeal cyst exerting mass effect on the right posterior lateral thecal sac. This in combination with a T11-T12 disc herniation causes mild distal thoracic spinal cord compression without cord signal abnormality. See additional details above. Appearance is unchanged compared to the previous study. 3. Stable lumbar facet arthropathies and L5-S1 degenerative disc disease with mild exiting left L4 nerve root impingement and disc osteophyte complex in contact with the descending left S1 nerve root in the lateral recess without compression. Interval History (03/26/2024) Patient returns to the [facility] today for ongoing management of chronic widespread body pain worse in the neck and arms. At the patient's last visit she was started on Lyrica which she feels has been helpful for her at night; however, she is unable to take the 150 mg in the morning secondary to fatigue. Patient has a similar issue with the Flexeril. Pain Assessment Pain Score: 7 Pain Location: Back (Cervical) Pain Descriptors: Aching, Burning, Sharp, Shooting Pain Frequency: Constant/continuous Pain Onset: Ongoing Patient's Medications New Prescriptions CELECOXIB (CELEBREX) 200 MG CAPSULE Take 1 capsule (200 mg total) by mouth daily Authorizing Provider: Kevin Dunn MD Notes: -- Previous Medications AMLODIPINE (NORVASC) 10 MG TABLET Take 1 tablet (10 mg total) by mouth daily Authorizing Provider: Margarita Bunch MD Notes: -- CYCLOBENZAPRINE (FLEXERIL) 10 MG TABLET Take 1 tablet (10 mg total) by mouth 3 (three) times a day as needed for muscle spasms Authorizing Provider: Kevin Dunn MD Notes: -- HYDROCHLOROTHIAZIDE (HYDRODIURIL) 25 MG TABLET Take 1 tablet (25 mg total) by mouth daily Authorizing Provider: Margarita Bunch MD Notes: -- LOSARTAN (COZAAR) 50 MG TABLET Take 1 tablet (50 mg total) by mouth 2 (two) times a day Authorizing Provider: Margarita Bunch MD Notes: -- MULTIVIT-MINERALS/FERROUS FUM (MULTI VITAMIN ORAL) Take 1 tablet by mouth daily Authorizing Provider: Margarita Bunch MD Notes: -- NEBIVOLOL (BYSTOLIC) 10 MG TABLET Take 1 tablet (10 mg total) by mouth daily Authorizing Provider: Margarita Bunch MD Notes: -- OMEPRAZOLE (PRILOSEC) 20 MG CAPSULE Take 1 capsule (20 mg total) by mouth daily Authorizing Provider: Margarita Bunch MD Notes: -- ONDANSETRON ODT (ZOFRAN-ODT) 4 MG DISINTEGRATING TABLET Take 1 tablet (4 mg total) by mouth every 8(eight) hours as needed for nausea or vomiting Authorizing Provider: Jamila Clements PA Notes: -- PREGABALIN (LYRICA) 150 MG CAPSULE Take 1 capsule (150 mg total) by mouth 2 (two) times a day Authorizing Provider: Kevin Dunn MD Notes: -- SULFAMETHOXAZOLE-TRIMETHOPRIM (BACTRIM DS) 800-160 MG PER TABLET Take 1 tablet by mouth every 12 (twelve) hours for 10 days Authorizing Provider: Margarita Bunch MD Notes: -- TAMSULOSIN (FLOMAX) 0.4 MG EXTENDED RELEASE CAPSULE Take 1 capsule (0.4 mg total) by mouth daily asneeded (Kidney stones) Authorizing Provider: Margarita Bunch MD Notes: -- Modified Medications No medications on file Discontinued Medications CELECOXIB (CELEBREX) 50 MG CAPSULE Take 1 capsule (50 mg total) by mouth 2 (two) times a day Authorizing Provider: Laci Vo MD Notes: -- HYDROCODONE-ACETAMINOPHEN (NORCO) 5-325 MG PER TABLET Take 1 tablet by mouth every 6 (six) hours asneeded for pain Authorizing Provider: Brice Carmona PA Notes: -- MELOXICAM (MOBIC) 15 MG TABLET TAKE 1 TABLET(15 MG) BY MOUTH DAILY Authorizing Provider: Catherine Teague MD Notes: -- Allergies Allergen Reactions Ketorolac Hives and Itching Tramadol Hives and Urticaria Hydralazine Headache Past Medical History: Diagnosis Date GERD (gastroesophageal reflux disease) Hypertension Kidney stone Migraine Past Surgical History: Procedure Laterality Date SECTION CHOLECYSTECTOMY HYSTERECTOMY KIDNEY SURGERY Family History Problem Relation Age of Onset Hypertension Father Alcohol abuse Mother Arthritis Mother COPD Mother Depression Mother Hearing loss Mother Obesity Mother Diabetes Maternal Grandfather Heart attack Maternal Grandfather Heart disease Maternal Grandfather Hearing loss Maternal Grandmother Stroke Paternal Grandfather Obesity Sister Obesity Brother Social History Tobacco Use Smoking status: Every Day Current packs/day: 0.50 Average packs/day: 0.5 packs/day for 32.4 years (16.2 ttl pk-yrs) Types: Cigarettes Start date: 11/11/1991 Smokeless tobacco: Never Substance and Sexual Activity Drug use: No Sexual activity: Yes Partners: Male control/protection: Surgical Comment: hysterectomy Alcohol Use: Unknown (02/02/2024) Received from [facility] Health AUDIT-C Frequency of Alcohol Consumption: Not on file Average Number of Drinks: Patient does not drink Frequency of Binge Drinking: Not on file Review of Systems: ROS Lab Results Component Value Date WBC 7.2 01/21/2024 HGB 14.7 01/21/2024 HCT 43.3 01/21/2024 MCV 89.6 01/21/2024 LABPLAT 249 01/21/2024 Most Recent : Vitals Pulse 86 Temp 97.6 ??F (36.4 ??C) (Transdermal) Resp 18 Wt 81.6 kg (180 lb) SpO2 96% BMI 31.89 kg/m?? Physical Exam: General: No acute distress, conversant HEENT: Anicteric sclerae. Normocephalic, atraumatic. Hearing grossly normal. Neck: Trachea midline. Cardiovascular: No edema or cyanosis noted Respiratory: Unlabored breathing. Normal effort. No audible wheeze/stridor. Abdomen: Not examined Musculoskeletal: Gait: normal Paraspinal muscle tenderness on palpation of the cervical paraspinal muscles. Neurologic: Motor: 5/5 Lobo UEs and LEs. Tinel's over the right carpal tunnel positive Clemente's negative bilaterally. No ankle clonus. Psychiatric: Normal mood, affect, insight. Skin: Warm. No rashes or lesions in the visible skin. Lab/Radiology/Diagnostic Review: Lab and Radiology Findings reviewed, Clinical significance noticed. Lab Results Component Value Date CREATININE 0.66 01/21/2024 CT Abdomen Pelvis WO Contrast Result Date: 01/22/2024 Narrative: EXAMINATION: CT ABDOMEN PELVIS WO CONTRAST DATE: 01/22/2024 3:00 AM CLINICAL HISTORY: Flank pain, kidney stone suspected TECHNIQUE: Axial CT imaging of the abdomen and pelvis performed without oral or intravenous contrast. 2-D Reformatted images are obtained. Evaluation of solid organs, bowel wall and vascular structures is limited due to the lack of IV contrast. COMPARISON: CT ABDOMEN PELVIS W CONTRAST 11/12/2023 FINDINGS: Liver: Enlarged liver with suggestion diffuse fatty infiltration. Gallbladder and bile ducts: Status post cholecystectomy. Pancreas: Unremarkable. No ductal dilation. Spleen: Unremarkable. No mass. Adrenal glands: Unremarkable. No mass. Kidneys and ureters: Unremarkable. No stone or hydronephrosis. Stomach and bowel: Colonic diverticulosis. No acute diverticulitis. No significant mucosal thickening. No bowel obstruction. Appendix: No evidence of appendicitis.Intraperitoneal space: No free air. No significant fluid collection. Vasculature: No abdominal aortic aneurysm. Lymph nodes: No enlarged lymph nodes. Urinary bladder: Unremarkable as visualized. Reproductive: Status post hysterectomy. Bones/joints: No acute fracture. No suspicious lesion. Soft tissues: No bowel containing hernia. Impression: 1. No renal stones or hydronephrosis. 2. Enlarged fatty liver. 3. Colonic diverticulosis. Electronically signed by: Kevan Jones M.D. ASSESSMENTS: No diagnosis found. The above note documents my personal evaluation of this patient. In addition, I have reviewed and confirmed with the patient and nurse the supportive information documented in today's scanned PatientHealth Questionnaire and Office Note. PLAN: Following treatment recommendations were discussed in detail with patient. Analgesics: Stop Mobic. Start Celebrex 200 mg once daily. Continue Lyrica at night. Potential to split dose this to 3 times a day--50mg TID. Interventions: Defer at this time. Could consider cervical epidural steroid injections in the future given previous benefit PT and Pain Psychology: Encourage HEP Images and Labs: Reviewed Referrals including surgery, neurology, rheumatology and other specialty referrals: None Other modalities (including implants) None Follow ups: 8 weeks Kevin Dunn MD Attending Physician, Pain Management [facility], [facility] documented in this encounter Miscellaneous Notes * Perioperative Nursing Note - Usha Curiel RN - 03/26/2024 10:43 AM CDT Patient's blood pressure was 236/115. Recheck with manual blood pressure was 210/120. Patient states she is in a lot of pain. Denies blurry vision, ringing in ears, headache. MD aware. * Perioperative Nursing Note - Usha Curiel RN - 03/26/2024 10:39 AM CDT Escorted patient to exam room. Obtained vital signs. Reviewed patient's allergies and current medications. Obtained and verified patient's simple medical/surgical history. Confirmed the reason for visit with the patient. Obtained the following screening assessments: [x] Modified Oswestry Low Back Pain Questionnaire [] PMC Intake Questionnaire [x] PMC Follow up Questionnaire [x] Fall Risk Assessment (Macie Guzman Steadi) [] Depression/Anxiety Assessment (GAD7, PHQ-9, [place] Suicide, [place] Depression) [] Disability Scale [] CAGE [] SOAPP-R Additional tasks included: [] Random medication adherence check (pill verification by two nurses) [] Work/school note written [] Pended CT/MRI/MRA order [] Pain assessment for multiple sites [] Vital Signs Temp: 97.6 ??F (36.4 ??C) Temp src: Transdermal Pulse: 86 Resp: 18 SpO2: 96 % Post-visit transport confirmed with the patient. Total time spent for patient care, education, and care coordination was approximately 11-20 minutes. documented in this encounter Plan of Treatment [...] as of this encounter Visit Diagnoses Diagnosis Chronic pain syndrome- Primary Cervicalgia documented in this encounter Discontinued Medications Medication Sig Discontinue Reason Start Date End Da te HYDROcodone-acetaminophe n (NORCO) 5-325 mg per tabletIndications:Pain Take 1 tablet by mouth every 6 (six) hours as needed for pain Therapy completed 01/22/2024 03/26/2024 celecoxib (CeleBREX) 50 mg capsule Take 1 capsule (50 mg total) by mouth 2 (two) times a day 06/26/2022 07/26/2022 meloxicam (MOBIC) 15 mg tablet TAKE 1 TABLET(15 MG) BY MOUTH DAILY 02/27/2024 03/26/2024 documented as of this encounter Historical Medications * This list may reflect changes made after this encounter. amLODIPine (NORVASC) 10 mg tabletIndications :hypertension Take 1 tablet (10 mg total) by mouth nightly 03/03/2024 added in this encounter Care Teams Bone Grinder Relationship Specialty Start Date End Date Lucas Carter DO PCP - General Internal Medicine 08/15/22 documented as of this encounter
--- OUTSIDE RECORDS SUMMARY | 2024-08-17 01:53 | XMS_ITS | Encounter Summary ---
Author Organization [facility] Healthcare Address [address] [place] [address] Care Team Providers Care Paediatrician Name Role Phone Lucas Carter DO Primary Care Provider [phone] Reason for Visit * Reason Comments Abdominal Pain Encounter Details Date Type Department Care Team (Late st Contact Info) Description 11/11/2023 11:37 PM CDT - 11/12/2023 3:49 AM CDT Emergency [facility] Emergency Department [address] [place] [address] Carlyle Miranda Jr., MD [address] 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 REPAIRER Sexual Orientation Straight 10/01/2023 8: 44 AM AIRCRAFT INSTRUMENT REPAIRER documented as of this encounter Last Filed Vital Signs Vital Sign Reading Time Taken Comments Blood Pressure 164/111 11/12/2023 3:00 AM CDT Pulse 73 11/12/2023 3:00 AM CDT Temperature 36.6 ??C (97.9 ??F) 11/11/2023 11:05 PM C DT Respiratory Rate 17 11/12/2023 3:00 AM CDT Oxygen Saturation 95% 11/12/2023 3:00 AM CDT Inhaled Oxygen Concentration - - Weight 81.6 kg (180 lb) 11/11/2023 9:51 PM CDT Height 160 cm (5' 3 ) 11/11/2023 9:51 PM CDT Body Mass Index 31.89 11/11/2023 9:51 PM CDT documented in this encounter Discharge Instructions * Discharge Instructions* Damian Robles MD - 11/12/2023 3:37 AM CDT Your test results today did not show any signs of a worrying cause for your belly pain. Take [id number]-[id number] pain medication as needed, drink plenty of fluids to stay hydrated, and call your primarydoctor tomorrow to follow up. If you start having unbearable pain even with medicines, severe nausea and vomiting and cannot keepany fluids down, new black or bloody stools, or other worrying symptoms, you may be having a serious medical complication and should come back to the ER as soon as possible. We recommend you take 400mg ibuprofen every 6 hours or tylenol 1000 mg every 6 hours as needed for pain. If needed, you can alternate these medications so that you take one medication every 3 hours. For instance, at noon take ibuprofen, then at 3pm take tylenol, then at 6pm take ibuprofen. * Attachments The following attachments cannot be sent through Care Everywhere. * Ovarian Cyst ([place]) * Headache, Unspecified ([place]) documented in this encounter Medications at Time of Discharge hydroCHLOROthiazide (HYDRODIURIL) 25 mg tabletIndications:h ypertension Take 1 tablet (25 mg total) by mouth early childhood associate teacher 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 losartan (COZAAR) 50 mg tabletIndications:h ypertension Take 1 tablet (50 mg total) by mouth 2 (two) times a day MULTIVIT-MINERALS/F ERROUS FUM (MULTI VITAMIN ORAL)Indications:he alth Take 1 tablet by mouth early childhood associate teacher 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 omeprazole (PriLOSEC) 20 mg capsuleIndications: Treatment of Non-Bleeding Gastric Disorder Take 1 capsule (20 mg total) by mouth early childhood associate teacher 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 ondansetron ODT (ZOFRAN-ODT) 4 mg disintegrating tablet Take 1 tablet (4 mg total) by mouth every 8 (eight) hours as needed for nausea or vomiting 20 tablet 08/10/2023 acetaminophen (TYLENOL) 500 mg tablet Take 1 tablet (500 mg total) by mouth every 6 (six) hours as needed for pain, headaches or fever 30 tablet 08/23/2023 4 amLODIPine (NORVASC) 10 mg tablet Take 1 tablet (10 mg total) by mouth daily 30 tablet 08/19/2022 4 cyclobenzaprine (FLEXERIL) 10 mg tablet Take 10 mg by mouth nightly as needed for muscle spasms 4 dicyclomine (BENTYL) 20 mg tablet Take 1 tablet (20 mg total) by mouth every 6 (six) hours as needed (abdominal pain) 30 tablet 08/23/2023 4 fluconazole (DIFLUCAN) 150 mg tablet Take 1 tablet orally as directed. 1 tablet 11/07/2022 4 gabapentin (NEURONTIN) 300 mg capsule Take 1 capsule (300 mg total) by mouth 3 (three) times a day For post-herpetic neuralgia: Take 1 tablet on day 1, Then take 2 tablets on day 2, Then take 3 tablets on day 3 and every day after that as instructed by your doctor. 90 capsule 11 06/26/2022 4 hydrALAZINE (APRESOLINE) 25 mg tabletIndications:h ypertension Take 1 tablet (25 mg total) by mouth 3 (three) times a day 90 tablet 08/18/2022 4 HYDROcodone-acetami nophen (NORCO) 5-325 mg per tabletIndications:P ain Take 1 tablet by mouth every 6 (six) hours as needed for pain for up to 8 doses 8 tablet 08/10/2023 4 ibuprofen (ADVIL,MOTRIN) 400 mg tablet Take 1 tablet (400 mg total) by mouth every 6 (six) hours as needed for pain 30 tablet 08/23/2023 4 meloxicam (MOBIC) 15 mg tabletIndications:a nti-inflammatory Take 1 tablet (15 mg total) by mouth daily 30 tablet 09/13/2023 4 oxyCODONE (ROXICODONE) 5 mg immediate release tabletIndications:P ain Take 1 tablet (5 mg total) by mouth every 6 (six) hours as needed (severe pain) 12 tablet 08/23/2023 4 predniSONE (DELTASONE) 10 mg tablet 3 tabs bid x 3 days, 2 tabs bid x 3 days, 1 tab bid x 3 days, 1 tab every day then stop. Take with food. 39 tablet 11/01/2023 4 tamsulosin (FLOMAX) 0.4 mg extended release capsuleIndications: Urolithiasis Take 1 capsule (0.4 mg total) by mouth daily as needed (Kidney stones) 4 documented as of this encounter Discharge Disposition Disposition Code Departure Means Destination Comment s Discharge to home or self care documented in this encounter Consult Notes * Glenda Daniels MD - 11/12/2023 12:32 AM CDT Hyperacute Stroke Team - HASTE Consult Note Initial information: Narrative: Ms. Luke is a 43 y.o. female who presents as an acute stroke page. Requesting provider: Dr. Miranda Reason for consult: Acute stroke suspected Page time (24h format): 11/12/20234 Last known well Date Last Known Well : 11/11/23 Time Last Known Well: 2300 Discovery of Symptoms - Date: 11/11/23 Discovery of Symptoms - Time: 2300 (11/11/232320) Chief complaint: L eye flashers, posterior headache HPI Renee Luke is a 43yr F PMHx HTN, chart history of migraines however patient denies, chronic low back pain presenting to the emergency room initially for left lower quadrant pain. The patient notes that she has experienced this kind of pain before in her right lower quadrant in the past and had to have her right ovary and uterus removed. She initially notes spots in her visionstarting around 4:00 p.m. today. While she was waiting in the emergency room, she had felt this spots and flashing lights in her left eye had worsened and she now had a worse posterior headache. For this reason stroke pager was activated. The patient denies symptoms like this happening before, she notes that she does typically get headaches like this with her blood pressure being very high however it has never back to her vision. She denies any dizziness, feeling like the room spinning. She endorses feeling shaky in her left arm and leg and does endorse nausea. Stroke risk factors: Hypertension Notable home meds (i.e., anticoagulation): none Past medical history, past surgical history, current medications, allergies, family history and social history were reviewed, and are noted at the end of this note. Vitals: 11/11/23 2355 BP: Pulse: 80 Resp: Temp: SpO2: 96% NIH Stroke Scale Level of Consciousness (1a.): Alert, keenly responsive LOC Questions (1b.): Answers both questions correctly LOC Commands (1c.): Performs both tasks correctly Best Gaze (2.): Normal Visual (3.): Partial hemianopia Facial Palsy (4.): Normal symmetrical movements Motor Arm, Left (5a.): No drift Motor Arm, Right (5b.): No drift Motor Leg, Left (6a.): No drift Motor Leg, Right (6b.): No drift Limb Ataxia (7.): Absent Sensory (8.): Normal, no sensory loss Best Language (9.): No aphasia Dysarthria (10.): Normal Extinction and Inattention (11.) (Formerly Neglect): No abnormality Total: 1 (11/12/23 0018) Martinez labs (FSBG, INR, platelets, Xa): Lab Results Lab Value Date/Time GLUCOSE 106 11/11/2023 2344 GLUCOSE 115 11/11/2023 2325 INR 1.1 05/21/2022 1746 HCT findings: no acute intracranial abnormality Thrombolytic (alteplase/tenecteplase) decision: Thrombolytic decision: NO GO. Rationale: Diagnosis is not likely stroke, more likely a stroke mimic Thrombolytic decision time (24 hour format): 2325 Thrombolytic bolus time (24 hour format): N/A, thrombolytics not given BP prior to thrombolytic bolus: N/A, thrombolytics not given Reason for thrombolytic delay (>30 mins [id number], if applicable): N/A, patient did not receive thrombolytics Thrombectomy decision: LVO on CTA?: N/A, patient did not have a CTA CTA read time/fellow: N/A, patient was not a candidate for CTA CTP: Core volume: N/A, CT perfusion not performed mL Penumbra volume: N/A, CT perfusion not performed mL Mismatch ratio: N/A, CT perfusion not performed Baseline functional status: MRS 0: The patient has no symptoms. Intervention: NO-GO: Rationale: NIHSS <6 Neuro-IR contact time: N/A, Patient NO-GO for intervention Reason for thrombectomy attempt delay (>90 minutes [id number], if applicable): N/A: Patient did not receive thrombectomy or no significant delays Hyperacute MRI: Hyperacute MRI Indication: Not performed Findings: N/A, not performed Wake-up stroke: Time of symptom discovery (24h format): N/A, patient not a candidate for WAKE-UP protocol DWI-FLAIR mismatch: N/A, patient not a candidate for protocol MRI read time/fellow: N/A, patient was not a candidate for protocol Physical Examination: BP (!) 181/138 Pulse 80 Temp 36.6 ??C (97.9 ??F) (Oral) Resp 20 Ht 160 cm (5' 3 ) Wt 81.6 kg (180 lb) SpO2 96% BMI 31.89 kg/m?? GEN: NAD HEENT: NC/AT, MMM CV: Regular rate and rhythm PULM: No increased work of breathing ABD: Soft, nontender, nondistended EXT: Warm and well-perfused SKIN: Warm and dry Neurologic Examination: Mental status: Awake, Alert, Oriented x 3 (person, place and time) Speech: Normal fluency, repetition, and comprehension. Cranial Nerves: II: Pupils equal and reactive bilaterally, visual moreno full, III/IV/: Extraocular movements intact without nystagmus but with pain on L gaze, V: Facial sensation normal bilaterally, VII: Facial muscle activation normal bilaterally, and VIII: hearing intact bilaterally Motor: Normal bulk and tone of the four extremities. 5/5 strength in the bilateral upper and lower extremities, no pronator drift Sensory: Normal sensation to light touch in the four extremities Coordination Gait: Finger to nose intact bilaterally without ataxia, Heel to ricardo intact bilaterally without ataxia, Normal gait and station Inattention: No extinction/inattention to double simultaneous tactile stimulation Other: Able to ambulate to CT scanner with slight hesitancy but with no ataxia Assessment & Plan: Ms. Luke is a 43 y.o. year old female PMHx HTN, chart history of migraines however patient denies, chronic low back pain presenting to the emergency room initially for left lower quadrant pain. NIHSS1 for partial hemianopia in the setting of flashing lights in the left visual field of her L eye. Her NIHSS otherwise unremarkable and she had no concerning findings of a posterior circulation strokesuch as nystagmus, vertigo, ocular misalignment, ataxia, gait imbalance. CTH was unremarkable and CTA H&N was not pursued due to low NIHSS, no other posterior circulation signs, and low suspicionfor stroke. NO GO x2. Her symptoms were thought to be most likely due to HTN urgency/emergency, as her systolic blood pressure was >200 on arrival and was complicated by the significant amount of pain that the patient endorsed being in. Recommendations: - blood pressure and pain control per primary Disposition: per ED We will staff this patient in the morning with Dr. Jay. Please do not hesitate to contact us with any questions or concerns. Recommendations are preliminary until staffed. If the patient is to be discharged from the ED, please inform the neurology consult team so this patient can be staffed for discharge. Case discussed with chief overnight, Dr. Ton Daniels MD 11/12/2023, 12:32 AM Subjective Past Medical History: Past Medical History: Diagnosis Date GERD (gastroesophageal reflux disease) Hypertension Kidney stone Migraine Past Surgical History: Past Surgical History: Procedure Laterality Date SECTION CHOLECYSTECTOMY HYSTERECTOMY KIDNEY SURGERY Medications: No current facility-administered medications on file prior to encounter. Current Outpatient Medications on File Prior to Encounter Medication Sig Dispense Refill acetaminophen (TYLENOL) 500 mg tablet Take 1 tablet (500 mg total) by mouth every 6 (six) hours as needed for pain, headaches or fever 30 tablet 0 amLODIPine (NORVASC) 10 mg tablet Take 1 tablet (10 mg total) by mouth daily 30 tablet 0 cyclobenzaprine (FLEXERIL) 10 mg tablet Take 10 mg by mouth nightly as needed for muscle spasms (Patient not taking: Reported on 09/10/2023) dicyclomine (BENTYL) 20 mg tablet Take 1 tablet (20 mg total) by mouth every 6 (six) hours as needed (abdominal pain) (Patient not taking: Reported on 09/10/2023) 30 tablet 0 fluconazole (DIFLUCAN) 150 mg tablet Take 1 tablet orally as directed. (Patient not taking: Reported on 09/10/2023) 1 tablet 0 gabapentin (NEURONTIN) 300 mg capsule Take 1 capsule (300 mg total) by mouth 3 (three) times a day For post-herpetic neuralgia: Take 1 tablet on day 1, Then take 2 tablets on day 2, Then take 3 tablets on day 3 and every day after that as instructed by your doctor. (Patient taking differently: [id number] mg by mouth daily as needed) 90 capsule 11 hydrALAZINE (APRESOLINE) 25 mg tablet Take 1 tablet (25 mg total) by mouth 3 (three) times a day 90tablet 0 hydroCHLOROthiazide (HYDRODIURIL) 25 mg tablet Take 1 tablet (25 mg total) by mouth daily HYDROcodone-acetaminophen (NORCO) 5-325 mg per tablet Take 1 tablet by mouth every 6 (six) hours asneeded for pain for up to 8 doses 8 tablet 0 ibuprofen (ADVIL,MOTRIN) 400 mg tablet Take 1 tablet (400 mg total) by mouth every 6 (six) hours asneeded for pain 30 tablet 0 losartan (COZAAR) 50 mg tablet Take 1 tablet (50 mg total) by mouth 2 (two) times a day meloxicam (MOBIC) 15 mg tablet Take 1 tablet (15 mg total) by mouth daily 30 tablet 0 MULTIVIT-MINERALS/FERROUS FUM (MULTI VITAMIN ORAL) Take 1 tablet by mouth daily omeprazole (PriLOSEC) 20 mg capsule Take 1 capsule (20 mg total) by mouth daily ondansetron ODT (ZOFRAN-ODT) 4 mg disintegrating tablet Take 1 tablet (4 mg total) by mouth every 8(eight) hours as needed for nausea or vomiting 20 tablet 0 oxyCODONE (ROXICODONE) 5 mg immediate release tablet Take 1 tablet (5 mg total) by mouth every 6 (six) hours as needed (severe pain) (Patient not taking: Reported on 09/10/2023) 12 tablet 0 predniSONE (DELTASONE) 10 mg tablet 3 tabs bid x 3 days, 2 tabs bid x 3 days, 1 tab bid x 3 days, 1tab every day then stop. Take with food. 39 tablet 0 tamsulosin (FLOMAX) 0.4 mg extended release capsule Take 1 capsule (0.4 mg total) by mouth daily asneeded (Kidney stones) Allergies: Allergies Allergen Reactions Ketorolac Hives and Itching Tramadol Hives and Urticaria Family History: Family History Problem Relation Age of Onset Hypertension Father Alcohol abuse Mother Arthritis Mother COPD Mother Depression Mother Hearing loss Mother Obesity Mother Diabetes Maternal Grandfather Heart attack Maternal Grandfather Heart disease Maternal Grandfather Hearing loss Maternal Grandmother Stroke Paternal Grandfather Obesity Sister Obesity Brother Social History: Social History Tobacco Use Smoking status: Every Day Current packs/day: 0.50 Average packs/day: 0.5 packs/day for 32.0 years (16.0 ttl pk-yrs) Types: Cigarettes Start date: 11/11/1991 Smokeless tobacco: Never Substance and Sexual Activity Drug use: No Sexual activity: Yes Partners: Male control/protection: Surgical Comment: hysterectomy Alcohol Use: Not on file Review of Systems: A complete review of systems was performed including symptoms pertaining to the following systems: constitutional, cardiovascular, respiratory, gastrointestinal, genitourinary, musculoskeletal, neurological, psychiatric, endocrine, immunologic, integumentary, hematological, eyes, and ears, nose, rich th, and throat. All systems were negative except as noted in the History of Presenting Illness (HPI). Cosigned by Brice Mckeon MD at 11/12/2023 8:29 AM CDT Associated attestation - Brice Mckeon MD - 11/12/2023 8:29 AM CDT Patient was discharged from the ER prior to discussion with Neurology resident. I did not personally examine the patient. Brice Jay MD, MSc Boiler Control Room Operator of Neurology Movement Disorders Department of Neurology [facility] documented in this encounter ED Notes * Kim Willoughby RN - 11/11/2023 11:37 PM CDT Bed: [facility] Expected date: Expected time: Means of arrival: Comments: Triage/stroke Kim Willoughby RN 11/11/23 5031 * Carlyle Miranda Jr., MD - 11/11/2023 11:23 PM CDT HPI Chief Complaint Patient presents with ??? Abdominal Pain TRIAGE NOTE: Patient BIB car to ED. Patient with left lower abdominal pain. Patient believes it is her ovarian cyst. Patient has right ovary and uterus removed. Patient with nausea. Patient in visible discomfort. Hypertensive and tachycardic on arrival. Ambulatory. GCS 15. PMHx kidney stones, HTN. ???Portions of the record may have been created with voice recognition software. Occasional wrong-word or ???[id number]??? substitutions may have occurred due to the inherent limitations of voice recognition software. Read the chart carefully and recognize, using context, where substitutions haveoccurred.?? HPI 43F with a PMH of HTN, obesity, GERD, RSO and TLH in 2016 here w/ a chief complaint of abdominal pain. Patient has developed left lower quadrant pain similar to prior episodes. She was last seen for this chief complaint in August of this year, assessed by OBGYN, and determine at that time (per chart review) to not have ovarian torsion. She was instructed to follow-up with OBGYN on outpatient basis, but has not had an opportunity to see them. She denies nausea or vomiting. Patient also notes a headache with white flashes in her left visual field. Patient otherwise denies nausea or vomiting. She denies vaginal bleeding or discharge. Patient History: Patient Active Problem List Diagnosis Date Noted ??? Pyelonephritis 08/15/2022 ??? Hypertensive urgency 08/15/2022 ??? Acute right flank pain 11/11/2018 ??? Strain of flank 11/11/2018 ??? Atypical migraine 10/17/2017 ??? Hypertension 10/17/2017 ??? Arm weakness 08/27/2016 ??? Leg weakness, bilateral 08/27/2016 ??? Numbness 08/27/2016 ??? Arachnoid cyst 06/07/2016 ??? Degeneration of intervertebral disc of cervical region 06/07/2016 ??? Neck pain 06/04/2016 ??? Surgical follow-up care 02/20/2016 ??? Female genital symptoms 01/13/2016 ??? Torsion of ovary 01/13/2016 ??? Abdominal pain 01/06/2016 ??? Increased frequency of urination 01/06/2016 ??? Pain in female pelvis 01/06/2016 ??? Fracture of head of radius 08/31/2014 Past Medical History: Diagnosis Date ??? GERD (gastroesophageal reflux disease) ??? Hypertension ??? Kidney stone ??? Migraine Past Surgical History: Procedure Laterality Date ??? SECTION ??? CHOLECYSTECTOMY ??? HYSTERECTOMY ??? KIDNEY SURGERY Family History Problem Relation Age of Onset ??? Hypertension Father ??? Alcohol abuse Mother ??? Arthritis Mother ??? COPD Mother ??? Depression Mother ??? Hearing loss Mother ??? Obesity Mother ??? Diabetes Maternal Grandfather ??? Heart attack Maternal Grandfather ??? Heart disease Maternal Grandfather ??? Hearing loss Maternal Grandmother ??? Stroke Paternal Grandfather ??? Obesity Sister ??? Obesity Brother Social History Tobacco Use ??? Smoking status: Every Day Current packs/day: 0.50 Average packs/day: 0.5 packs/day for 32.0 years (16.0 ttl pk-yrs) Types: Cigarettes Start date: 11/11/1991 ??? Smokeless tobacco: Never Substance and Sexual Activity ??? Alcohol use: No ??? Drug use: No ??? Sexual activity: Yes Partners: Male control/protection: Surgical Comment: hysterectomy Social History Social History Narrative ??? Not on file Review of Systems Review of Systems Physical Exam ED Triage Vitals Temp Pulse Resp BP SpO2 11/11/23214711/11/23214711/11/23214711/11/23214711/11/232147 36.6 ??C (97.9 ??F) 109 16 (!) 200/129 98 % Temp src Heart Rate Source Patient Position BP Location FiO2 (%) 11/11/232147 -- -- -- -- Oral Height Height Method Weight Weight Method 11/11/23215011/11/23215011/11/232150 -- 1.6 m (5' 3 ) Stated 81.6 kg (180 lb) Physical Exam Constitutional: General: She is not in acute distress. Appearance: Normal appearance. She is obese. HENT: Head: Normocephalic and atraumatic. Right Ear: External ear normal. Left Ear: External ear normal. Nose: Nose normal. No congestion or rhinorrhea. Mouth/Throat: Mouth: Mucous membranes are moist. Pharynx: No oropharyngeal exudate or posterior oropharyngeal erythema. Eyes: General: No scleral icterus. Conjunctiva/sclera: Conjunctivae normal. Cardiovascular: Rate and Rhythm: Normal rate and regular rhythm. Heart sounds: Normal heart sounds. No murmur heard. Pulmonary: Effort: Pulmonary effort is normal. No respiratory distress. Breath sounds: Normal breath sounds. Abdominal: General: Abdomen is flat. Bowel sounds are normal. There is no distension. Tenderness: There is abdominal tenderness (LLQ TTP). Musculoskeletal: General: No swelling, tenderness or deformity. Normal range of motion. Cervical back: Normal range of motion. Skin: General: Skin is warm and dry. Coloration: Skin is not jaundiced. Neurological: General: No focal deficit present. Mental Status: She is alert and oriented to person, place, and time. Cranial Nerves: No cranial nerve deficit. Motor: No weakness. Psychiatric: Mood and Affect: Mood normal. Behavior: Behavior normal. MDM NIH Score Interval: Baseline Level of Consciousness (1a.): 0 LOC Questions (1b.): 0 LOC Commands (1c.): 0 Best Gaze (2.): 0 Visual (3.): 1 Facial Palsy (4.): 0 Motor Arm, Left (5a.): 0 Motor Arm, Right (5b.): 0 Motor Leg, Left (6a.): 0 Motor Leg, Right (6b.): 0 Limb Ataxia (7.): 0 Sensory (8.): 0 Best Language (9.): 0 Dysarthria (10.): 0 Extinction and Inattention (11.) (Formerly Neglect): 0 Total: 1 Medical Decision Making 43F with a PMH of HTN, obesity, GERD, RSO and TLH in 2016 here w/ a chief complaint of abdominal pain. Patient has developed left lower quadrant pain similar to prior episodes. She was last seen for this chief complaint in August of this year, assessed by OBGYN, and determine at that time (per chart review) to not have ovarian torsion. She was instructed to follow-up with OBGYN on outpatient basis, but has not had an opportunity to see them. She denies nausea or vomiting. Patient also notes a headache with white flashes in her left visual field. Patient otherwise denies nausea or vomiting. She denies vaginal bleeding or discharge. On exam, the patient has an intact neurologic exam with an NIH stroke scale 1. Low suspicion of stroke based on the patient's exam. CT scan without any acute intracranial pathology eliminating the possibility of subarachnoid hemorrhage as etiology of the patient's headache. Patient is markedly hypertensive on her vital signs, and her symptoms may be due to hypertensive urgency. Plan to treat the patient's blood pressure. With respect to the patient's abdominal pain, prior CT scan did not revealany acute pathology or explanation of the patient's pain. However due to the patient's known ovarian cyst on the left, history of ovarian torsion, plan to obtain CT scan to evaluate for evidence of edema of the ovary that may suggest torsion. Anticipate OBGYN consult prior to likely discharge pending symptomatic improvement. Amount and/or Complexity of Data Reviewed External Data Reviewed: notes. Details: Reviewed prior OBGYN notes Labs: ordered. Decision-making details documented in ED Course. Radiology: ordered. ECG/medicine tests: ordered and independent interpretation performed. Risk Prescription drug management. Decision regarding hospitalization. Attending Summary of Care ED Course as of 11/12/23 1116 Time: 11/10 2335 Comment: IMPRESSION: No acute intracranial process. By: Damian Robles MD Time: 11/10 2341 Comment: 43 yo female originally arrived to the ED with LLQ maybe slight vision changes started around 4:15pm. Pt states the LLQ significant pain makes her blood pressure elevate, Pain feels similar to the pain she had a couple months ago on the opposite side she had followed-up with [facility] about, At 11:00pm pt developed a posterior headache and more prominent left sided visual changes, she was made a code stroke. NIHSS was 1, symptoms atypical of a CVA, Head CT done, pt evaluated by EM and stroke and pt not a tPA or a thrombectomy candidate., Plan- workup of lower abdominal pain, headache, vision changes, control blood pressure, By: Carlyle Miranda Jr., MD Time: 11/11 020 Comment: Patient reassessed. Headache is now gone and her vision is back to normal. Her left lower quadrant pain was briefly relieved by dose of morphine, but is now coming back. By: Damian Robles MD Time: 11/11 238 Comment: IMPRESSION: 1. No acute findings in abdomen or pelvis. 2. Left ovarian cyst is slightly decreased in size. By: Damian Robles MD Time: 11/11 245 Comment: Patient discussed with [facility]. Given small size of cyst and reassuring past work-up, low concern for torsion. Recommend symptomatic treatment and outpatient follow-up for further pelvic painworkup. By: Damian Robles MD Time: 11/11 312 Value: Urinalysis reflex to microscopic(!): Color, ur Straw Clarity, ur Clear Specific gravity, ur >1.042(!) pH, urine 6.5 Protein, ur ql 1+(!) Glucose, ur ql Negative Ketones, ur Negative Bilirubin, ur Negative Blood, ur Negative Urobilinogen, ur <2.0 Nitrite, ur Negative Leukocyte esterase, ur Negative UA reflex comment Reflex to microscopic UA will be performed. Comment: Low concern for cystitis based on urine. By: Damian Robles MD Time: 11/11 336 Comment: I discussed the patient's reassuring workup with her. I discussed return precautions as well as instruct the patient to follow-up with OBGYN for further evaluation of her pelvic pain. Patient was agreeable with plan voiced understanding. All questions answered. By: Damian Robles MD Time: 11/12 339 Comment: Patients visual symptoms and headache improved and resolved throughout the ED visit. Patient's head CT showed nothing acute. Abdominal CT showed nothing acute. BP gradually lowered with medication pain control and labetalol. Patient states when she is in pain her blood pressure typically raises significantly. Pt stable for discharge to closely monitor her blood pressure an discuss further management with her primary care provider, pt to follow-up with OBGYN in regards to her acute on chronic lower abdominal pain. Lab work reviewed, NO STD symptoms, pt will return to the ED if she develops any neuro deficits, stroke symptoms, and/or abdominal pain worsens, Patient with chronic LLQ abdominal pain and back pain, pt follows with PM&R and pain management and has previously seen [facility] for the LLQ pain, see previous EPIC notes detailing the visits with these specialists over the past few months. Pt with no visual field deficits, vision back to baseline at discharge, PERRLA, EOMI, no corneal or retinal issues noted. Pt to f/u as instructed. By: Carlyle Miranda Jr., MD Abdominal pain Left lower quadrant pain Cyst of left ovary Nonintractable headache, unspecified chronicity pattern, unspecified headache type Damian Robles MD Resident 11/12/23 0338 I have seen and examined the patient on 11/11/2023 and 11/12/2023. I agree with the findings and plan of care as documented in the resident's note. Carlyle Miranda Jr., MD 11/12/23 1103 * Gerardo Carvalho RN - 11/11/2023 9:44 PM CDT Patient BIB car to ED. Patient with left lower abdominal pain. Patient believes it is her ovarian cyst. Patient has right ovary and uterus removed. Patient with nausea. Patient in visible discomfort. Hypertensive and tachycardic on arrival. Ambulatory. GCS 15. PMHx kidney stones, HTN. documented in this encounter Miscellaneous Notes * ED Procedure Note - Carlyle Miranda Jr., MD - 11/12/2023 3:49 AM CDT Associated Order(s): Critical Care Procedure Critical Care Performed by: Carlyle Miranda Jr., MD Authorized by: Carlyle Miranda Jr., MD Critical care provider statement: As reflected in the history, physical exam, orders, notes, and/or MDM, I was personally present while the patient was critically ill and provided critical care services for 32 minutes, excluding timeinvolved in separately billable procedures. Critical care was necessary to treat or prevent imminent or life- threatening deterioration of the following condition(s): Acute code stroke activation, eval and reeval Critical care was time spent by me providing the following: continuous telemetry, continuous pulse oximetry, interpretation of bedside monitors, imaging, and arterial/venous lab draws and serial bedside patient exams frequent neurologic exams and decision regarding acute lytic therapy Eval and reeval, acute code stroke eval, d/w neuro code stroke team, making decision no go for thrombolytics, evaluating acute abdominal pain, d/w [employer] given previous workup and management by information security engineer, d/wpatient, reviewing workup results, multiple d/w patient. serial abdominal exams acute pain control I provided emergent necessary critical care medicine services to this patient. I ordered and reviewed test results and/or imaging studies. I spent time discussing the management of this critically ill patient with consultants and the medical staff. I spent time discussing the management and therapeutic options for this critically ill patient with the patient themselves or with the appropriate designated surrogate decision-maker. I spent time documenting in the medical record. Carlyle Miranda Jr., MD 11/12/23 1120 * ED Procedure Note - Carlyle Miranda Jr., MD - 11/12/2023 12:50 AM CDT Associated Order(s): ECG 12 lead Procedure ECG 12 lead Date/Time: 11/12/2023 12:50 AM Performed by: Damian Robles MD Authorized by: Dmaian Robles MD Quality: Tracing quality: Limited by artifact Rate: ECG rate: 75 ECG rate assessment: normal Rhythm: Rhythm: sinus rhythm Ectopy: Ectopy: none QRS: QRS axis: Normal QRS intervals: Normal Conduction: Conduction: normal ST segments: ST segments: Non-specific Elevation: AVR T waves: T waves: flattening and inverted Flattening: III Inverted: AVR Q waves: Q waves: AVR and V1 Previous ECG: Previous ECG: Compared to current Date of previous EC11/11/2023 Similarity: No change Recommended Follow-up: Recommended follow up: further workup in the ED Normal sinus rhythm with a ventricular rate of 75. QRS duration 82 milliseconds. QTC 435 milliseconds. Normal QRS axis. No ST segment elevation or depression. No abnormal T-wave morphology. Interpretation: Normal EKG No change compared to prior EKG obtained 06/25/2022. Indication for EKG: Stroke workup Damian Robles MD Resident 11/12/23 0051 I have personally reviewed the tracing and the resident's interpretation. I agree with the findings. Carlyle Miranda Jr., MD 11/12/23 0149 * ED Procedure Note - Shaquille Alfonso MD - 11/11/2023 10:06 PM CDT Associated Order(s): ECG 12 lead Procedure ECG 12 lead Date/Time: 11/11/2023 10:06 PM Performed by: Shaquille Alfonso MD Authorized by: Casey Benton MD Comments: Electrocardiogram manifest normal sinus rhythm with sinus arrhythmia rate of 84; normal MI, QRS, QTC interval; normal P, R, T-wave axis; no evidence of atrial enlargement or ventricular hypertrophy; nonspecific ST abnormalities noted in limb leads 3 and AVF but without evidence of active myocardialischemia; no Q- waves premature loss of R-wave to suggest prior myocardial infarction indeterminate age. Compared with prior electrocardiogram from June 25, 2022 no significant changes are noted. Moderate risk for acute coronary syndrome Shaquille Alfonso MD 11/11/23 documented in this encounter Plan of Treatment Not on file documented as of this encounter Procedures Procedure Name Priority Date/Time Associated Diagnosis Comments [place] CRITICAL CARE ILL/INJURED PATIENT INIT 30-74 MIN Routine 11/12/2023 3:49 AM CDT DRUGS OF ABUSE SCREEN, URINE WITHOUT CONFIRMATION STAT 11/12/2023 3:32 AM CDT TROPONIN I HIGH-SENSITIVITY 2-HOUR Timed 11/12/2023 1:27 AM CDT N. GONORRHOEAE/C. TRACHOMATIS AMPLIFICATION STAT 11/12/2023 1:15 AM CDT TRICHOMONAS VAGINALIS PCR STAT 11/12/2023 1:15 AM CDT URINALYSIS AND REFLEX TO MICROSCOPIC STAT 11/12/2023 1:15 AM CDT URINALYSIS, MICROSCOPIC ONLY STAT 11/12/2023 1:[address] ABDOMEN PELVIS W CONTRAST ED 11/12/2023 12:55 AM CDT ECG 12-LEAD STAT 11/12/2023 12:50 AM CDT EGFR STAT 11/11/2023 11:44 PM CDT DIFFERENTIAL AUTO STAT 11/11/2023 11: 44 PM CDT CBC WITH AUTO DIFFERENTIAL STAT 11/11/2023 11:44 PM CDT RPR STAT 11/11/2023 11:44 PM CDT COMPREHENSIVE METABOLIC PANEL STAT 11/11/2023 11:[address] STROKE PROTOCOL WO CONTRAST Critical/Life-T hreatening 11/11/2023 11:29 PM CDT TROPONIN I HIGH-SENSITIVITY SERIES (BASELINE, 2HR, 4HR, 6HR) STAT 11/11/2023 11:26 PM CDT EGFR STAT 11/11/2023 11:26 PM CDT DIFFERENTIAL AUTO STAT 11/11/2023 11: 26 PM CDT CBC WITH AUTO DIFFERENTIAL STAT 11/11/2023 11:26 PM CDT APTT STAT 11/11/2023 11:26 PM CDT COMPREHENSIVE METABOLIC PANEL STAT 11/11/2023 11:26 PM CDT POCT GLUCOSE DEVICE Routine 11/11/2023 1 1:25 PM CDT ECG 12-LEAD STAT 11/11/2023 10:06 PM CDT documented in this encounter Results * [place] CRITICAL CARE ILL/INJURED PATIENT INIT 30-74 MIN (11/12/2023 3:49 AM CDT) Narrative Carlyle Miranda Jr., MD - 11/12/2023 3:49 AM CDT Carlyle Miranda Jr., MD ? 11/12/2023 11:20 AM Critical Care Performed by: Carlyle Miranda Jr., MD Authorized by: Carlyle Miranda Jr., MD ?? Critical care provider statement: As reflected in the history, physical exam, orders, notes, and/or MDM, I was personally present while the patient was critically ill and provided critical care services for 32 minutes, excluding time involved in separately billable procedures. ??Critical care was necessary to treat or prevent imminent or life-threatening deterioration of the following condition(s): ?? Acute code stroke activation, eval and reeval ??Critical care was time spent by me providing the following: ? continuous telemetry, continuous pulse oximetry, interpretation of bedside monitors, imaging, and arterial/venous lab draws and serial bedside patient exams ?? frequent neurologic exams and decision regarding acute lytic therapy ?? Eval and reeval, acute code stroke eval, d/w neuro code stroke team, making decision no go for thrombolytics, evaluating acute abdominal pain, d/w [employer] given previous workup and management by information security engineer, d/w patient, reviewing workup results, multiple d/w patient. ?? serial abdominal exams ?? acute pain control ?? I provided emergent necessary critical care medicine services to this patient. I ordered and reviewed test results and/or imaging studies. I spent time discussing the management of this critically ill patient with consultants and the medical staff. I spent time discussing the management and therapeutic options for this critically ill patient with the patient themselves or with the appropriate designated surrogate decision-maker. I spent time documenting in the medical record. us Carlyle Miranda Jr., MD [facility] Final Result * (ABNORMAL) Drugs of Abuse Screen, Urine without Confirmation (11/12/2023 3:32 AM CDT) Amphetamine, ur Not Detected CutOff 500ng/mL Comment: Interpretive Data - Amphetamines: ??Samples containing greater than 500 ng/mL d-methamphetamine ??or other cross-reacting amphetamine compounds are reported as positive. ??Amphetamine immunoassays are subject to significant false positive rates due to cross-reactivity of non-amphetamine drugs. Confirmatory testing required for definitive results. Current Interpretive Data was last reviewed 2023. Barbiturates, ur Not Detected CutOff 200ng/mL [facility] Comment: Interpretive Data - Barbiturates: ??Samples containing greater than 200 ng/mL secobarbital or other cross-reacting barbiturate compounds are reported as positive. ??False positive and false negative results are possible. Confirmatory testing required for definitive results. Current Interpretive Data was last reviewed 2023. Benzodiazepines, ur Not Detected CutOff 100ng/mL [facility] Comment: Interpretive Data - Benzodiazepines: ??Samples containing greater than 100 ng/mL nordiazepam or other cross-reacting compounds are reported as positive. False positive and false negative results are possible. Confirmatory testing required for definitive results. Current Interpretive Data was last reviewed 2023. Cannabinoids, ur Not Detected CutOff 50 ng/mL [facility] Comment: Interpretive Data - Cannabinoids: ??Samples containing greater than 50 ng/mL delta-9 THC -COOH or other cross-reacting compounds are reported as positive. ??False positive and false negative results are possible. ??Confirmatory testing required for definitive results. Current Interpretive Data was last reviewed 2023. Cocaine, ur Not Detected CutOff 150ng/mL [facility] Comment: Interpretive Data - Cocaine: ??Samples containing greater than 150 ng/mL benzoylecgonine or other cross-reacting compounds are reported as positive. False positive and false negative results are possible. Confirmatory testing required for definitive results. Current Interpretive Data was last reviewed 2023. Fentanyl, Ur Not Detected Cutoff 1 ng/mL [facility] Comment: Interpretive Data - Fentanyl: ??Samples containing greater than 1 ng/mL fentanyl or other cross-reacting fentanyl compounds are reported as positive. ??False positive and false negative results are possible. Confirmatory testing required for definitive results. Current Interpretive Data was last reviewed 2023. Methadone, ur Not Detected CutOff 300ng/mL [facility] Comment: Interpretive Data - Methadone: ??Samples containing greater than 300 ng/mL d,l-methadone or other cross-reacting compounds are reported as positive. ??False positive and false negative results are possible. Confirmatory testing required for definitive results. Current Interpretive Data was last reviewed 2023. Opiates, ur Screen Positive, presumptive (A) CutOff 300ng/mL [facility] Comment: Interpretive Data - Opiates: ??Samples containing greater than 300 ng/mL morphine or other cross-reacting compounds are reported as positive. ??False positive and false negative results are possible. Confirmatory testing required for definitive results. Current Interpretive Data was last reviewed 2023. Oxycodone, ur Not Detected CutOff 100ng/mL [facility] Comment: Interpretive Data - Oxycodone: ??Samples containing greater than 100 ng/mL oxycodone or other cross-reacting compounds are reported as ??positive. ??False positive and false negative results are possible. Confirmatory testing required for definitive results. Current Interpretive Data was last reviewed 2023. Phencyclidine, ur Not Detected CutOff 25 ng/mL [facility] Comment: Interpretive Data - Phencyclidine: ??Samples containing greater than 25 ng/mL phencyclidine or other cross-reacting compounds are reported as positive. ??False positive and false negative results are possible. Confirmatory testing required for definitive results. Current Interpretive Data was last reviewed 2023. Urine Creatinine 140 mg/dL [facility] Comment: Interpretive Data Urine Creatinine: < 10 mg/dL is extremely dilute = or > 10 but < 20 mg/dL is dilute = or > 20 mg/dL is normal Current Interpretive Data was last revised on 2017. Urine 11/12/2023 3:32 AM CDT 11/12/2023 3:46 AM CDT Narrative [facility] - 11/12/2023 4:34 AM CDT Drug of Abuse screening is performed by immunoassay for medical purposes only. ??This is not to be used for Pain Management purposes. us Carlyle Miranda Jr., MD LAB URINE ORDERABLES F inal Result Performing Organization Address City/[facility] Co de Phone Number [facility] Department [place] [address] * Troponin I high-sensitivity 2-hour (11/12/2023 1:27 AM CDT) Trop I hs <4 <=17 ng/L Comment: Interpretive Data For further [facility] resources including the diagnostic algorithm and an aid in interpretation, copy and paste this link: https://[email or web address].testcatalog.org/show/[email or web address] Current Interpretive Data last revised 2020. Trop I hs delta 0 ng/L [facility] Trop I hs interp Insignificant [facility] Blood 11/12/2023 1:27 AM CDT 11/12/2023 1:42 AM CDT us Damian Robles MD LAB BLOOD [place] [address] * (ABNORMAL) Urinalysis, microscopic only (11/12/2023 1:15 AM CDT) WBC, ur 0-5 0 - 5 /HPF RBC, ur 6-10(A) 0 - 2 /HPF [facility] Epithelial cells, squamous, ur 11-20(A) 0 - 5 /HPF [facility] Comment:Suggestive of contam ination. Consider recollection by clean catch. Bacteria, ur Trace(A) [facility] Mucous, ur Present(A ) [facility] Urine 11/12/2023 1:15 AM CDT 11/12/2023 1:23 AM CDT Damian Robles MD LAB URINE ORDERABLES Sandra l Result Performing Organization Address [facility] [place] [address] * Trichomonas vaginalis PCR Urine (11/12/2023 1:15 AM CDT) Pathologist [facility] Trichomonas DNA Not Detected Not Detected [facility] Comment: Interpretive Data This assay detects Trichomonas vaginalis by nucleic acid amplification testing (NAAT). This assay has been cleared by the [place] Food and Drug administration. The performance characteristics of this test have been verified by the [facility] Molecular Infectious Disease laboratory. Excess blood in specimens may be inhibitory and result in false negative results. ??The performance of this test has not been evaluated in women or individuals less than 18 years of age. Current Interpretive Data last revised 2023. Urine 11/12/2023 1:15 AM CDT 11/12/2023 1:25 AM CDT Damian Robles MD LAB MICROBIOLOGY - GENERA L ORDERABLES Final Result Performing Organization Address [facility] de Phone Number [facility] [place] [address] [facility] * N. gonorrhoeae/C. trachomatis Amplification Urine (11/12/2023 1:15 AM CDT) Pathologist [facility] C. trachomatis Not Detected Not Detected [facility] N. gonorrhoeae Not Detected Not Detected [facility] Comment: Interpretive Data This assay detects Chlamydia trachomatis and Neisseria gonorrhoeae by nucleic acid amplification testing (NAAT). This assay has been cleared by the [place] Food and Drug administration. The performance characteristics of this test have been verified by the [facility] Molecular Infectious Disease laboratory. The performance characteristics of this test have not been evaluated in individuals less than 14 years of age. Current Interpretive Data last revised 2023. Urine (None) 11/12/2023 1:15 AM CDT 11/12/2023 1:26 AM CDT Damian Robles MD LAB MICROBIOLOGY - GENERA L ORDERABLES Final Result [facility] [place] [address] [facility] * (ABNORMAL) Urinalysis reflex to microscopic (11/12/2023 1:15 AM CDT) Pathologist [facility] Color, ur Straw Yellow Clarity, ur Clear Clear [facility] Specific gravity, ur >1.042(H) 1.003 - 1.030 [facility] pH, urine 6.5 [facility] Comment: Interpretive Data ? Urine pH is affected by diet, medications, systemic acid-base disturbances, and renal tubular function. ??pH may affect urinary stone formation. ??For example, urine pH below 6.0 may help reduce the tendency for calcium phosphate stones and pH greater than 6.0 may reduce the tendency for uric acid stone formation. Source: [facility] [employer] Current Interpretive Data was last revised on 2017 Protein, ur ql 1+(A) Negative [facility] Glucose, ur ql Negative Negative [facility] Ketones, ur Negative Negative [facility] Bilirubin, ur Negative Negative [facility] Blood, ur Negative Negative [facility] Urobilinogen, ur <2.0 <2.0 mg/dL [facility] Nitrite, ur Negative Negative [facility] Leukocyte esterase, ur Negative Negative [facility] UA reflex comment Reflex to microscopic UA will be performed. [facility] Urine 11/12/2023 1:15 AM CDT 11/12/2023 1:23 AM CDT us Damian Robles MD LAB URINE ORDERABLES Sandra clifton Result [facility] Department [place] [address] * CT Abdomen Pelvis W Contrast (11/12/2023 12:55 AM CDT) Anatomical Region Laterality Modality Body N/A Computed Tomogra phy 11/12/2023 2:29 AM CDT Impressions 11/12/2023 11:33 AM CDT 1. ??No acute findings in abdomen or pelvis. 2. ??Left ovarian cyst is slightly decreased in size. 3. ??Hepatic steatosis. Dictated by: Kevin Hummel M.D. The radiology attending physician has personally reviewed this study, and had reviewed and/or edited this written report and agrees with it. Electronically signed by: Cam Smith M.D. Narrative 11/12/2023 11:33 AM CDT EXAMINATION: ??Computed tomography of the abdomen and pelvis with intravenous contrast HISTORY: Left lower quadrant abdominal pain TECHNIQUE: ??Transaxial computed tomographic images of the abdomen and pelvis were obtained with intravenous contrast according to the standard protocol after the uneventful administration of 75 mL Opti-Ray 350 intravenous contrast. COMPARISON: 08/23/2023 CT FINDINGS: Lung bases are clear. ??Heart size is normal. Hepatic steatosis. Liver otherwise normal. Gallbladder is absent. Spleen, pancreas, adrenal glands appear normal. Kidneys enhance symmetrically without hydronephrosis. ??Mild ureteral mucosal enhancement and stranding. ??Urinary bladder appears normal. Uterus is absent. ??Slightly decreased size of a 2.5 cm left adnexal cyst. ??No new suspicious adnexal lesions. The colon and small bowel are normal in course and caliber. ??Appendix appears normal. ??Colonic diverticulosis without evidence of diverticulitis. Abdominal aorta is normal in course and caliber. ??No pathologically enlarged abdominal or pelvic lymph nodes. No suspicious osseous lesions. ??Mild multilevel degenerative changes of the spine. Procedure Note Cam Smith MD - 11/12/2023 EXAMINATION: Computed tomography of the abdomen and pelvis with intravenous contrast HISTORY: Left lower quadrant abdominal pain TECHNIQUE: Transaxial computed tomographic images of the abdomen and pelvis were obtained with intravenous contrast according to the standard protocol after the uneventful administration of 75 mL Opti-Ray 350 intravenous contrast. COMPARISON: 08/23/2023 CT FINDINGS: Lung bases are clear. Heart size is normal. Hepatic steatosis. Liver otherwise normal. Gallbladder is absent. Spleen, pancreas, adrenal glands appear normal. Kidneys enhance symmetrically without hydronephrosis. Mild ureteral mucosal enhancement and stranding. Urinary bladder appears normal. Uterus is absent. Slightly decreased size of a 2.5 cm left adnexal cyst. No new suspicious adnexal lesions. The colon and small bowel are normal in course and caliber. Appendix appears normal. Colonic diverticulosis without evidence of diverticulitis. Abdominal aorta is normal in course and caliber. No pathologically enlarged abdominal or pelvic lymph nodes. No suspicious osseous lesions. Mild multilevel degenerative changes of the spine. IMPRESSION: 1. No acute findings in abdomen or pelvis. 2. Left ovarian cyst is slightly decreased in size. 3. Hepatic steatosis. Dictated by: Kevin Hummel M.D. The radiology attending physician has personally reviewed this study, and had reviewed and/or edited this written report and agrees with it. Electronically signed by: Cam Smith M.D. us Damian Robles MD IM CT PROCEDURES Final R esult * ECG 12-LEAD (11/12/2023 12:50 AM CDT) Narrative [facility] - 11/12/2023 12:50 AM CDT Carlyle Miranda Jr., MD ? 11/12/2023 ??1:49 AM ECG 12 lead Date/Time: 11/12/2023 12:50 AM Performed by: Damian Robles MD Authorized by: Damian Robles MD ?? Quality: ??Tracing quality: ??Limited by artifact Rate: ??ECG rate: ??75 ??ECG rate assessment: normal ?? Rhythm: ??Rhythm: sinus rhythm ?? Ectopy: ??Ectopy: none ?? QRS: ??QRS axis: ??Normal ??QRS intervals: ??Normal Conduction: ??Conduction: normal ?? ST segments: ??ST segments: ??Non-specific ??Elevation: ??AVR T waves: ??T waves: flattening and inverted ?Flattening: ??III ??Inverted: ??AVR Q waves: ??Q waves: ??AVR and V1 Previous ECG: ??Previous ECG: ??Compared to current ??Date of previous ECG: ??11/11/2023 ??Similarity: ??No change Recommended Follow-up: ??Recommended follow up: further workup in the ED ?? Procedure Note Carlyle Miranda Jr., MD - 11/12/2023 12:50 AM CDT Procedure ECG 12 lead Date/Time: 11/12/2023 12:50 AM Performed by: Damian Robles MD Authorized by: Damian Robles MD Quality: Tracing quality: Limited by artifact Rate: ECG rate: 75 ECG rate assessment: normal Rhythm: Rhythm: sinus rhythm Ectopy: Ectopy: none QRS: QRS axis: Normal QRS intervals: Normal Conduction: Conduction: normal ST segments: ST segments: Non-specific Elevation: AVR T waves: T waves: flattening and inverted Flattening: III Inverted: AVR Q waves: Q waves: AVR and V1 Previous ECG: Previous ECG: Compared to current Date of previous EC11/11/2023 Similarity: No change Recommended Follow-up: Recommended follow up: further workup in the ED Normal sinus rhythm with a ventricular rate of 75. QRS duration 82milliseconds. QTC 435 milliseconds. Normal QRS axis. No ST segmentelevation or depression. No abnormal T-wave morphology. Interpretation: Normal EKG No change compared to prior EKG obtained 06/25/2022. Indication for EKG: Stroke workup Damian Robles MD Resident 11/12/23 0051 I have personally reviewed the tracing and the resident's interpretation.I agree with the findings. Carlyle Miranda Jr., MD 11/12/23 0149 us Damian Robles MD ECG ORDERABLES Final Res ult Performing Organization Address [facility] Co de Phone Number [facility] * eGFR (11/11/2023 11:44 PM CDT) eGFR >90 >=60 mL/min/1. 73 m2 Comment: Interpretive Data Reference Interval Normal ?>/= 90 mL/min/1.73m2 Mildly decreased* ? 60 - 89 mL/min/1.73m2 Mildly to moderately decreased ?45 - 59 mL/min/1.73m2 Moderately to severely decreased ??30 - 44 mL/min/1.73m2 Severely decreased ?15 - 29 mL/min/1.73m2 Kidney Failure ?< 15 ??mL/min/1.73m2 *Relative to young adult level Estimated glomerular filtration rate is determined by the 2020 CKD-EPI equation recommended by the National Kidney Foundation (A Unifying Approach to GFR Estimation: Recommendations of the NKF-ASK Task Force on Reassessing the Inclusion of Race in Diagnosing Kidney Disease, JASN 2020). The CKD-EPI equation should not be used for patients with unstable renal function and has not been validated in children and those over 70. Current interpretive data was last reviewed 2021. Blood 11/11/2023 11:4 4 PM CDT 11/11/2023 11:57 PM CDT us Casey Benton MD LAB BLOOD ORDERABLES Final Res ult Performing Organization Address [facility] Co de Phone Number [facility] Department [place] [address] * (ABNORMAL) Differential, auto (11/11/2023 11:44 PM CDT) Neutrophil abs 7.7(H) 1.5 - 6.5 K/cumm Imm gran abs 0.0 0.0 - 0.1 K/cumm [facility] Lymphocyte abs 2.2 0.8 - 3.3 K/cumm [facility] Monocyte abs 0.5 0.2 - 0.8 K/cumm [facility] Eosinophil abs 0.1 0.0 - 0.5 K/cumm [facility] Basophil abs 0.0 0.0 - 0.1 K/cumm [facility] Neutrophil pct 73.0 % [facility] Comment: Interpretive Data Percent cell count reference ranges are not reported, since discordance with absolute values may lead to misinterpretation of CBC data. Current Interpretive Data was last revised on 2017. Imm gran pct 0.3 % [facility] Comment: Interpretive Data Percent cell count reference ranges are not reported, since discordance with absolute values may lead to misinterpretation of CBC data. Current Interpretive Data was last revised on 2017. Lymphocyte pct 20.9 % [facility] Comment: Interpretive Data Percent cell count reference ranges are not reported, since discordance with absolute values may lead to misinterpretation of CBC data. Current Interpretive Data was last revised on 2017. Monocyte pct 4.8 % [facility] Comment: Interpretive Data Percent cell count reference ranges are not reported, since discordance with absolute values may lead to misinterpretation of CBC data. Current Interpretive Data was last revised on 2017. Eosinophil pct 0.6 % [facility] Comment: Interpretive Data Percent cell count reference ranges are not reported, since discordance with absolute values may lead to misinterpretation of CBC data. Current Interpretive Data was last revised on 2017. Basophil pct 0.4 % [facility] Comment: Interpretive Data Percent cell count reference ranges are not reported, since discordance with absolute values may lead to misinterpretation of CBC data. Current Interpretive Data was last revised on 2017. Blood 11/11/2023 11:4 4 PM CDT 11/11/2023 11:57 PM CDT Casey Benton MD LAB BLOOD ORDERABLES Final Res ult Performing Organization Address [facility] Co de Phone Number [facility] Department [place] [address] * RPR Blood (11/11/2023 11:44 PM CDT) Pathologist [facility] RPR Nonreactive Nonreactive Blood 11/11/2023 11:4 4 PM CDT 11/11/2023 11:57 PM CDT Damian Robles MD LAB MICROBIOLOGY - GENERA L ORDERABLES Final Result Performing Organization Address [facility] de Phone Number [facility] Department [place] [address] * Comprehensive metabolic panel (11/11/2023 11:44 PM CDT) [facility] Sodium 141 135 - 145 mmol/L Potassium, pl 3.5 3.3 - 4.9 mmol/L [facility] Chloride 107 97 - 110 mmol/L [facility] CO2 24 22 - 32 mmol/L [facility] Anion gap 10 2 - 15 mmol/L [facility] BUN 9 6 - 25 mg/dL [facility] Creatinine 0.76 0.60 - 1.10 mg/dL [facility] Glucose 106 70 - 199 mg/dL [facility] Comment: Interpretive Data Fasting glucose >/= 126 mg/dl is diagnostic for diabetes. ?? Fasting is defined as no caloric intake for at least 8 hours. Fasting glucose between 100 mg/dl to 125 mg/dl is diagnostic of prediabetes. In a patient with classic symptoms of hyperglycemia or hyperglycemic crisis, a random glucose >/= 200 mg/dl is diagnostic for diabetes. In the absence of unequivocal hyperglycemia, results should be confirmed by repeat testing. The classification and Diagnosis of Diabetes Diabetes Care 2021; 46: S19-S40. Current interpretive data was last revised 2022. Calcium 9.4 8.5 - 10.3 mg/dL [facility] Bilirubin, total 0.3 0.1 - 1.2 mg/dL [facility] Protein, pl 6.8 6.5 - 8.5 g/dL [facility] Albumin 3.9 3.5 - 5.0 g/dL [facility] Alk phos 85 40 - 130 Units/L [facility] ALT 38 7 - 45 Units/L [facility] AST 28 10 - 45 Units/L [facility] Blood (Blood, Venous) 11/11/2023 11:44 PM CDT 11/11/2023 11:57 PM CDT us Carlyle Miranda Jr., MD LAB BLOOD ORDERABLES F inal Result [facility] Department [place] [address] * (ABNORMAL) CBC with auto differential (11/11/2023 11:44 PM CDT) WBC 10.6(H) 3.8 - 9.9 K/cumm Hgb 13.9 11.9 - 15.5 g/dL [facility] Hct 38.7 35.6 - 45.5 % [facility] Plt 273 150 - 400 K/cumm [facility] MPV 9.6 9.1 - 12.3 fL [facility] RBC 4.46 3.90 - 5.20 M/cumm [facility] MCV 86.8 81.3 - 96.4 fL [facility] MCH 31.2 27.1 - 33.3 pg [facility] MCHC 35.9(H) 32.3 - 35.7 g/dL [facility] RDW CV 12.3 11.1 - 14.9 % [facility] RDW SD 39.0 35.7 - 48.1 fL [facility] NRBC abs 0.00 0.00 - 0.01 K/cumm [facility] Blood (Blood, Venous) 11/11/2023 11:44 PM CDT 11/11/2023 11:57 PM CDT us Carlyle Miranda Jr., MD LAB BLOOD ORDERABLES F inal Result [facility] Department [place] [address] * CT Stroke Head WO Contrast (11/11/2023 11:29 PM CDT) Anatomical Region Laterality Modality Head N/A Computed Tomogra phy 11/11/2023 11:3 3 PM CDT Impressions 11/12/2023 3:31 PM CDT No acute intracranial process. The Non Critical results were discussed with Dr. Daniels by Dr. Prince on 11/11/2023 11:30 PM Dictated by: Levy Prince M.D. The radiology attending physician has personally reviewed this study, and had reviewed and/or edited this written report and agrees with it. Electronically signed by: Johan Lake MD, PHD Narrative 11/12/2023 3:31 PM CDT EXAMINATION: CT head without contrast HISTORY: Left-sided vision changes TECHNIQUE: CT of the head was performed with images acquired from skull base to vertex without intravenous contrast. COMPARISON: None Available. FINDINGS: No acute intracranial hemorrhage. ??No surrounding mass effect or midline shift. ??Encarnacion-white matter differentiation is preserved. Orbits, mastoids, and paranasal sinuses are within normal limits with the exception of minimal mucosal thickening in the left maxillary sinus. ??No acute fracture. Procedure Note Johan Lake MD PhD - 11/12/2023 EXAMINATION: CT head without contrast HISTORY: Left-sided vision changes TECHNIQUE: CT of the head was performed with images acquired from skull base to vertex without intravenous contrast. COMPARISON: None Available. FINDINGS: No acute intracranial hemorrhage. No surrounding mass effect or midline shift. Encarnacion-white matter differentiation is preserved. Orbits, mastoids, and paranasal sinuses are within normal limits with the exception of minimal mucosal thickening in the left maxillary sinus. No acute fracture. IMPRESSION: No acute intracranial process. The Non Critical results were discussed with Dr. Daniels by Dr. Prince on 11/11/2023 11:30 PM Dictated by: Levy Prince M.D. The radiology attending physician has personally reviewed this study, and had reviewed and/or edited this written report and agrees with it. Electronically signed by: Johan Lake MD, PHD Damian Robles MD IMG CT PROCEDURES Final R esult * eGFR (11/11/2023 11:26 PM CDT) [facility] eGFR >90 >=60 mL/min/1. 73 m2 Comment: Interpretive Data Reference Interval Normal ?>/= 90 mL/min/1.73m2 Mildly decreased* ? 60 - 89 mL/min/1.73m2 Mildly to moderately decreased ?45 - 59 mL/min/1.73m2 Moderately to severely decreased ??30 - 44 mL/min/1.73m2 Severely decreased ?15 - 29 mL/min/1.73m2 Kidney Failure ?< 15 ??mL/min/1.73m2 *Relative to young adult level Estimated glomerular filtration rate is determined by the 2020 CKD-EPI equation recommended by the National Kidney Foundation (A Unifying Approach to GFR Estimation: Recommendations of the NKF-ASK Task Force on Reassessing the Inclusion of Race in Diagnosing Kidney Disease, JASN 2020). The CKD-EPI equation should not be used for patients with unstable renal function and has not been validated in children and those over 70. Current interpretive data was last reviewed 2021. Blood 11/11/2023 11:2 6 PM CDT 11/11/2023 11:31 PM CDT Damian Robles MD LAB BLOOD ORDERABLES Sandra clifton Result [facility] Department [place] [address] * (ABNORMAL) Differential, auto (11/11/2023 11:26 PM CDT) Neutrophil abs 9.1(H) 1.5 - 6.5 K/cumm Imm gran abs 0.0 0.0 - 0.1 K/cumm [facility] Lymphocyte abs 2.4 0.8 - 3.3 K/cumm [facility] Monocyte abs 0.7 0.2 - 0.8 K/cumm [facility] Eosinophil abs 0.1 0.0 - 0.5 K/cumm [facility] Basophil abs 0.0 0.0 - 0.1 K/cumm [facility] Neutrophil pct 73.4 % [facility] Comment: Interpretive Data Percent cell count reference ranges are not reported, since discordance with absolute values may lead to misinterpretation of CBC data. Current Interpretive Data was last revised on 2017. Imm gran pct 0.2 % [facility] Comment: Interpretive Data Percent cell count reference ranges are not reported, since discordance with absolute values may lead to misinterpretation of CBC data. Current Interpretive Data was last revised on 2017. Lymphocyte pct 19.6 % [facility] Comment: Interpretive Data Percent cell count reference ranges are not reported, since discordance with absolute values may lead to misinterpretation of CBC data. Current Interpretive Data was last revised on 2017. Monocyte pct 5.9 % [facility] Comment: Interpretive Data Percent cell count reference ranges are not reported, since discordance with absolute values may lead to misinterpretation of CBC data. Current Interpretive Data was last revised on 2017. Eosinophil pct 0.6 % [facility] Comment: Interpretive Data Percent cell count reference ranges are not reported, since discordance with absolute values may lead to misinterpretation of CBC data. Current Interpretive Data was last revised on 2017. Basophil pct 0.3 % [facility] Comment: Interpretive Data Percent cell count reference ranges are not reported, since discordance with absolute values may lead to misinterpretation of CBC data. Current Interpretive Data was last revised on 2017. Blood 11/11/2023 11:2 6 PM CDT 11/11/2023 11:31 PM CDT Damian Robles MD LAB BLOOD ORDERABLES Sandra l Result Performing Organization Address [facility] de Phone Number [facility] [place] [address] * Troponin I high-sensitivity series (baseline, 2hr, 4hr, 6hr) (11/11/2023 11:26 PM CDT) Trop I hs 4 <=17 ng/L Comment: Code Blue Specimen Interpretive Data For further hscTnI resources including the diagnostic algorithm and an aid in interpretation, copy and paste this link: https://bjhlab.testcatalog.org/show/[email or web address] Current Interpretive Data last revised 2020. Blood 11/11/2023 11:2 6 PM CDT 11/11/2023 11:31 PM CDT Damian Robles MD LAB BLOOD ORDERABLES Sandra l Result Performing Organization Address [facility] de Phone Number [facility] [place] [place] [address] * aPTT (11/11/2023 11:26 PM CDT) aPTT 31 28 - 38 sec Comment: Interpretive Data Heparin therapeutic range: 66.0 - 100.0 seconds. Range based on correlation with therapeutic heparin activity range of 0.3 - 0.7 Units/mL. Current interpretive data was last revised on 2023. Blood (Blood, Venous) 11/11/2023 11:26 PM CDT 11/11/2023 11:31 PM CDT Narrative [facility] - 11/11/2023 11:46 PM CDT Potential stroke patient. Damian Robles MD LAB BLOOD ORDERABLES Sandra clifton Result [facility] Department [place] [address] * Comprehensive metabolic panel (11/11/2023 11:26 PM CDT) Sodium 144 135 - 145 mmol/L Comment:Code Blue Specimen Potassium, pl 3.7 3.3 - 4.9 mmol/L [facility] Comment:Code Blue Specimen Chloride 106 97 - 110 mmol/L [facility] Comment:Code Blue Specimen CO2 27 22 - 32 mmol/L [facility] Comment:Code Blue Specimen Anion gap 11 2 - 15 mmol/L [facility] Comment:Code Blue Specimen BUN 9 6 - 25 mg/dL [facility] Comment:Code Blue Specimen Creatinine 0.79 0.60 - 1.10 mg/dL [facility] Comment:Code Blue Specimen Glucose 115 70 - 199 mg/dL [facility] Comment: Code Blue Specimen Interpretive Data Fasting glucose >/= 126 mg/dl is diagnostic for diabetes. ?? Fasting is defined as no caloric intake for at least 8 hours. Fasting glucose between 100 mg/dl to 125 mg/dl is diagnostic of prediabetes. In a patient with classic symptoms of hyperglycemia or hyperglycemic crisis, a random glucose >/= 200 mg/dl is diagnostic for diabetes. In the absence of unequivocal hyperglycemia, results should be confirmed by repeat testing. The classification and Diagnosis of Diabetes Diabetes Care 2021; 46: S19-S40. Current interpretive data was last revised 2022. Calcium 9.5 8.5 - 10.3 mg/dL [facility] Comment:Code Blue Specimen Bilirubin, total 0.3 0.1 - 1.2 mg/dL [facility] Comment:Code Blue Specimen Protein, pl 7.0 6.5 - 8.5 g/dL [facility] Comment:Code Blue Specimen Albumin 4.2 3.5 - 5.0 g/dL [facility] Comment:Code Blue Specimen Alk phos 87 40 - 130 Units/L [facility] Comment:Code Blue Specimen ALT 41 7 - 45 Units/L [facility] Comment:Code Blue Specimen AST 34 10 - 45 Units/L [facility] Comment:Code Blue Specimen Blood (Blood, Venous) 11/11/2023 11:26 PM CDT 11/11/2023 11:31 PM CDT Narrative [facility] - 11/12/2023 12:03 AM CDT Potential Stroke Patient Damian Robles MD LAB BLOOD ORDERABLES Sandra l Result [facility] Department [place] [address] * (ABNORMAL) CBC with auto differential (11/11/2023 11:26 PM CDT) WBC 12.4(H) 3.8 - 9.9 K/cumm Comment:Code Blue Specimen Hgb 14.5 11.9 - 15.5 g/dL [facility] Hct 40.1 35.6 - 45.5 % [facility] Plt 289 150 - 400 K/cumm [facility] MPV 9.4 9.1 - 12.3 fL [facility] RBC 4.60 3.90 - 5.20 M/cumm [facility] MCV 87.2 81.3 - 96.4 fL [facility] MCH 31.5 27.1 - 33.3 pg [facility] MCHC 36.2(H) 32.3 - 35.7 g/dL [facility] RDW CV 12.5 11.1 - 14.9 % [facility] RDW SD 39.4 35.7 - 48.1 fL [facility] NRBC abs 0.00 0.00 - 0.01 K/cumm [facility] Blood (Blood, Venous) 11/11/2023 11:26 PM CDT 11/11/2023 11:31 PM CDT Narrative [facility] - 11/11/2023 11:38 PM CDT Potential Stroke Patient Damian Robles MD LAB BLOOD ORDERABLES Sandra l Result [facility] Department [place] [address] * POCT glucose (11/11/2023 11:25 PM CDT) Glucose, POC 115 70 - 199 mg/dL Blood 11/11/2023 11:2 5 PM CDT 11/11/2023 11:25 PM CDT us Notinfile Unknown LAB POCT ORDERABLES - DEVICE F inal Result [facility] Department [place] [address] * ECG 12-LEAD (11/11/2023 10:06 PM CDT) Narrative [facility] - 11/11/2023 10:06 PM CDT Shaquille Alfonso MD ? 11/11/2023 10:07 PM ECG 12 lead Date/Time: 11/11/2023 10:06 PM Performed by: Shaquille Alfonso MD Authorized by: Casey Benton MD ?? Comments: ?? Electrocardiogram manifest normal sinus rhythm with sinus arrhythmia rate of 84; normal MI, QRS, QTC interval; normal P, R, T-wave axis; no evidence of atrial enlargement or ventricular hypertrophy; nonspecific ST abnormalities noted in limb leads 3 and AVF but without evidence of active myocardial ischemia; no Q-waves premature loss of R-wave to suggest prior myocardial infarction indeterminate age. ??Compared with prior electrocardiogram from June 25, 2022 no significant changes are noted. Moderate risk for acute coronary syndrome Procedure Note Shaquille Alfonso MD - 11/11/2023 10:06 PM CDT Procedure ECG 12 lead Date/Time: 11/11/2023 10:06 PM Performed by: Shaquille Alfonso MD Authorized by: Casey Benton MD Comments: Electrocardiogram manifest normal sinus rhythm with sinus arrhythmiarate of 84; normal MI, QRS, QTC interval; normal P, R, T-wave axis; noevidence of atrial enlargement or ventricular hypertrophy; nonspecific STabnormalities noted in limb leads 3 and AVF but without evidence of activemyocardial ischemia; no Q-waves premature loss of R-wave to suggest priormyocardial infarction indeterminate age. Compared with priorelectrocardiogram from June 25, 2022 no significant changes are noted.Moderate risk for acute coronary syndrome Shaquille Alfonso MD 11/11/232 us Carlyle Miranda Jr., MD ECG ORDERABLES Final Result [facility] documented in this encounter Visit Diagnoses Diagnosis Abdominal pain- Primary Abdominal pain, unspecified site Left lower quadrant pain Abdominal pain, left lower quadrant Cyst of left ovary Other and unspecified ovarian cyst Nonintractable headache, unspecified chronicity pattern, unspecified headache type Vision changes Hypertensive emergency documented in this encounter Administered Medications Inactive Administered Medications - up to 3 most recent administrations Medication Order MAR Action Action Date Dose Rate Site al & mag hydroxide nxknxhuqagj-dkcvbohju-dbrlot mine (GI COCKTAIL WITH ANTISPASMODIC) suspension 45 mL 45 mL, oral, Once, On Sat11/11/23 at 2229, For 1 dose, shake well Given 11/11/2023 11:59 PM CDT 45 mL droPERidol (INAPSINE) injection 2.5 mg 2.5 mg, intravenous, Administer over 5 Minutes, Once, On Sat11/11/23 at 2351, For 1 dose Given 11/11/2023 11:58 PM CDT 2.5 mg ioversoL (OPTIRAY 350) syringe 75 mL 75 mL, intravenous, Once in imaging, contrast, Starting on Sat11/12/23 at 0055, For 1 dose Contrast Given 11/12/2023 12:55 AM CDT 75 mL labetaloL (NORMODYNE,TRANDATE) injection 10 mg 10 mg, intravenous, at 60 mL/hr, Administer over 2 Minutes, Once, On Sat11/11/23 at 2339, For 1 dose Given 11/11/2023 11:58 PM CDT 10 mg 60 mL/hr Lactated Ringer's (LR) bolus 1,000 mL 1,000 mL, intravenous, Once, On Sat11/11/23 at 2351, For 1 dose New Bag 11/11/2023 11:58 PM CDT 1,000 mL morphine injection 4 mg 4 mg, intravenous, Administer over 4 Minutes, Once, On Sat11/12/23 at 0035, For 1 dose Given 11/12/2023 12:41 AM CDT 4 mg ondansetron (ZOFRAN) injection 4 mg 4 mg, intravenous, Administer over 2 Minutes, Once as needed, nausea, vomiting, If patient unable to tolerate PO, Starting on Sat11/11/23 at 2150, For 1 dose, Do not administer if patient had 8mg administered within 6 hours of patient presenting to ED Do not administer if patient was formally diagnosed with prolonged QT syndrome ondansetron ODT (ZOFRAN-ODT) disintegrating tablet 4 mg 4 mg, oral, Once as needed, nausea, vomiting, If able to tolerate PO, Starting on Sat11/11/23 at 2150, For 1 dose, Do not administer if patient had 8mg administered within 6 hours of patient presenting to ED Do not administer if patient was formally diagnosed with prolonged QT syndrome documented in this encounter Active and Recently Administered Medications Times are shown in CDT. Scheduled Medication Order 11/10/2023 11/11/2023 11/12/2023 acetaminophen (TYLENOL) tablet 1,000 mg 1,000 mg, oral, Once, On Sat11/11/23 at 2229, For 1 dose 0041 (Not Given - Provider: Vanessa Guillory RN - Reason: Patient/family refused) al & mag hydroxide iivvknjidcx-jnzvqrtti-xqc scamine (GI COCKTAIL WITH ANTISPASMODIC) suspension 45 mL (COMPLETED) 45 mL, oral, Once, On Sat11/11/23 at 2229, For 1 dose, shake well 2359 (Given - Provider: Vanessa Guillory, KHADAR) droPERidol (INAPSINE) injection 2.5 mg (COMPLETED) 2.5 mg, intravenous, Administer over 5 Minutes, Once, On Sat11/11/23 at 2351, For 1 dose 2358 (Given - Provider: Vanessa Guillory, KHADAR) labetaloL (NORMODYNE,TRANDATE) injection 10 mg (COMPLETED) 10 mg, intravenous, at 60 mL/hr, Administer over 2 Minutes, Once, On Sat11/11/23 at 2339, For 1 dose 2358 (Given - Provider: Vanessa Guillory RN) Lactated Ringer's (LR) bolus 1,000 mL (COMPLETED) 1,000 mL, intravenous, Once, On Sat11/11/23 at 2351, For 1 dose 2358 (New Bag - Provider: Vanessa Guillory RN) 0200 (Stopped - Provider: Vanessa Guillory RN) morphine injection 4 mg (COMPLETED) 4 mg, intravenous, Administer over 4 Minutes, Once, On Sat11/12/23 at 0035, For 1 dose 0041 (Given - Provid er: Vanessa Guillory RN) PRN Medication Order 11/10/2023 11/11/2023 11/12/2023 ioversoL (OPTIRAY 350) syringe 75 mL (COMPLETED) 75 mL, intravenous, Once in imaging, contrast, Starting on Sat11/12/23 at 0055, For 1 dose 0055 (Contrast Given - Provider: Blanquita Lamar RT) ondansetron (ZOFRAN) injection 4 mg 4 mg, intravenous, Administer over 2 Minutes, Once as needed, nausea, vomiting, If patient unable to tolerate PO, Starting on Sat11/11/23 at 2150, For 1 dose, Do not administer if patient had 8mg administered within 6 hours of patient presenting to ED Do not administer if patient was formally diagnosed with prolonged QT syndrome ondansetron ODT (ZOFRAN-ODT) disintegrating tablet 4 mg 4 mg, oral, Once as needed, nausea, vomiting, If able to tolerate PO, Starting on Sat11/11/23 at 2150, For 1 dose, Do not administer if patient had 8mg administered within 6 hours of patient presenting to ED Do not administer if patient was formally diagnosed with prolonged QT syndrome documented in this encounter Orders Medications Ordered That Noe ht Not Have Been Administered Count Last Ordered Date First Ordered Date acetaminophen (TYLENOL) tablet 1,000 mg 1 0 11/11/2023 ondansetron (ZOFRAN) injection 4 mg 1 11/10 ondansetron ODT (ZOFRAN-ODT) disintegrating tablet 4 mg 1 11/11/2023 Lab Orders Without Results Count Last Ordered D ate First Ordered Date POCT GLUCOSE DEVICE 1 11/11/2023 POCT PROTHROMBIN TIME, WHOLE BLOOD 1 2023 Nursing Count Last Ordered Date First Orde red Date CARDIORESPIRATORY MONITOR 1 11/11/2023 NURSING SWALLOW ASSESSMENT 1 11/11/2023 WEIGH PATIENT 1 11/11/2023 IV Count Last Ordered Date First Orde red Date SALINE LOCK IV 3 11/11/2023 documented in this encounter Care Teams Paediatrician Relationship Specialty Start Date End Date Lucas Carter DO PCP - General Internal Medicine 08/15/22 documented as of this encounter
--- OUTSIDE RECORDS SUMMARY | 2024-08-17 01:53 | XMS_ITS | Encounter Summary ---
Author Organization [facility] Healthcare Address [address] [place] [address] Care Team Providers Care Wrong Address Clerk Name Role Phone Lucas Carter DO Primary Care Provider [phone] Reason for Visit * Auth/Cert (Routine) Specialty Diagnoses / Procedures Referred By Lluvia t Referred To Contact Diagnoses Right carpal tunnel syndrome Right carpal tunnel syndrome [G56.01] Procedures [facility] N/CARPAL TUNNEL SURG RIGHT CARPAL TUNNEL RELEASE Referral ID Status Reason Start Date Expiration Date Visits Re quested Visits Authorized [id number] 1 1 Encounter Details Date Type Department Care Team (Latest Contact Info) Description 04/06/2024 1:40 PM CDT - 04/06/2024 3:12 PM CDT Hospital Encounter [facility] [address] [place] [id number] Mynor Francisco MD [address] [facility] [place] [address] Discharge Disposition: Discharge to home or self [...] often do you have a drink containing alc ohol? Monthly or less 04/06/2024 Q2: How many drinks containi ng alcohol do you have on a typical day when you are drinking? 1 or 2 04/06/2024 Q3: How often do you have si x or more drinks on one occasion? Never 04/06/2024 Personal Safety Answer Date Recorded Have you ever been in or are you currently in a harmful physical or emotional relationship or is someone making you feel afraid or unsafe? Denies 04/06/2024 Comments No Sex and Gender Information Value Date Recorded Sex Assigned at Not on file Legal Sex Female 9:06 PM CAVALRY OFFICER Gender Identity Female 10/01/2023 8:44 AM CAVALRY OFFICER Sexual Orientation Straight 10/01/2023 8: 44 AM CAVALRY OFFICER documented as of this encounter Last Filed Vital Signs Vital Sign Reading Time Taken Comments Blood Pressure 197/120 04/06/2024 2:46 PM CDT Pulse 75 04/06/2024 2:50 PM CDT Temperature 36.5 ??C (97.7 ??F) 04/06/2024 1:44 PM CD T Respiratory Rate 18 04/06/2024 1:55 PM CDT Oxygen Saturation 97% 04/06/2024 2:50 PM CDT Inhaled Oxygen Concentration - - Weight 81.7 kg (180 lb 1.6 oz) 04/06/2024 1:44 P M CDT Height 160 cm (5' 3 ) 04/06/2024 1:44 PM CDT Body Mass Index 31.9 04/06/2024 1:44 PM CDT documented in this encounter Discharge Instructions * Discharge Instructions* Elizabeth Escobar, [facility] - 04/01/2024 3:23 PM CDT [facility] Hand & Microsurgery Division Postoperative Instructions [...] HOURS: Saturday - Saturday 8:00 - 4:30 Hull Drafter: Tania phone: [phone] AFTER HOURS/WEEKEND - EMERGENCIES ONLY (NO MEDICATION REFILLS): Medical Exchange: [phone] or toll-free Perioperative Narcotic Considerations The Orthopedic hand surgeons of [facility] manage perioperative pain as wellas the pain after an acute injury. Our surgeons do not manage chronic pain (pain three months afterthe injury/surgery), and will refer patients seeking longer term care for their painful condition to a pain management service or their primary physician as those physicians typically establish trim setter helper treatment relationships with patients. Following elective hand [...] be called in to your pharmacy if ???xysy-saq-hiqziwz??? anti- inflammatory pain medication do not decrease the pain even when taken on a regular basis. These can be called in during the hours 9am to 4pm, during the workweek. ???Alternative??? treatments such as acupuncture, meditation and biofeedback can all be used to decrease post-operative pain. The Orthopedic hand surgeons of [facility] want you to be as comfortable [...] interpretation of pain. The ???opioid epidemic??? in [place] is very real, and we as physicians [...] 1 tablet (25 mg total) by mouth blasting entryman 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 losartan (COZAAR) 50 mg tabletIndications:hy pertension Take 1 tablet (50 mg total) by mouth 2 (two) times a day MULTIVIT-MINERALS/FE RROUS FUM (MULTI VITAMIN ORAL)Indications:hea lth Take 1 tablet by mouth blasting entryman 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 nebivoloL (BYSTOLIC) 10 mg tabletIndications:hy pertension Take 1 tablet (10 mg total) by mouth every other day 01/03/2024 omeprazole (PriLOSEC) 20 mg capsuleIndications:T reatment of Non-Bleeding Gastric Disorder Take 1 capsule (20 mg total) by mouth blasting entryman 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 ondansetron ODT (ZOFRAN-ODT) 4 mg [...] in this encounter H&P Notes * Sparkle Drake, CARLO - 04/06/2024 1:49 PM CDT Outpatient Pre-Procedure History and Physical Subjective Patient is a 44 y.o. female with chief complaint of right hand pain. Indication For Procedure: Pre-op Diagnosis * Right carpal tunnel syndrome [G56.01] Planned Procedure RIGHT CARPAL TUNNEL RELEASE (R) HPI: Patient is a 44 year old female wotj right carpal tunnel syndrome who presents today for rightcarpal tunnel release. Past Medical History: Diagnosis Date GERD (gastroesophageal reflux disease) Hypertension Kidney stone Migraine Past Surgical History: Procedure Laterality Date SECTION x3 CHOLECYSTECTOMY 03/2023 ELBOW SURGERY Left 2013 HYSTERECTOMY 2016 KIDNEY SURGERY 2022 multiple procedures for Kidney stones Medications Prior to Admission Medication Sig Dispense Refill Last Dose amLODIPine (NORVASC) 10 mg tablet Take 1 tablet (10 mg total) by mouth nightly 04/05/2024 cyclobenzaprine (FLEXERIL) 10 mg tablet Take 1 tablet (10 mg total) by mouth 3 (three) times a day as needed for muscle spasms (Patient taking differently: Take 1 tablet (10 mg total) by mouth 3 (three) times a day as needed for muscle spasms) 90 tablet 1 Past Week hydroCHLOROthiazide (HYDRODIURIL) 25 mg tablet Take 1 tablet (25 mg total) by mouth blasting entryman 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 04/05/2024 losartan (COZAAR) 50 mg tablet Take 1 tablet (50 mg total) by mouth 2 (two) times a day 04/05/2024 MULTIVIT-MINERALS/FERROUS FUM (MULTI VITAMIN ORAL) Take 1 tablet by mouth blasting entryman 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 04/05/2024 nebivoloL (BYSTOLIC) 10 mg tablet Take 1 tablet (10 mg total) by mouth every other day 04/05/2024 omeprazole (PriLOSEC) 20 mg capsule Take 1 capsule (20 mg total) by mouth blasting entryman 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 04/05/2024 ondansetron ODT (ZOFRAN-ODT) 4 mg disintegrating tablet Take 1 tablet (4 mg total) by mouth every 8(eight) hours as needed for nausea or vomiting 20 tablet 0 Past Month pregabalin (LYRICA) 150 mg capsule Take 1 capsule (150 mg total) by mouth 2 (two) times a day (Patient taking differently: Take 1 capsule (150 mg total) by mouth 2 (two) times a day) 60 capsule 2 Past Week celecoxib (CeleBREX) 200 mg capsule Take 1 capsule (200 mg total) by mouth daily (Patient taking differently: Take 1 capsule (200 mg total) by mouth blasting entryman 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) 30 capsule 0 sulfamethoxazole-trimethoprim (BACTRIM DS) 800-160 mg per tablet Take 1 tablet by mouth as needed More than a month tamsulosin (FLOMAX) 0.4 mg extended release capsule Take 1 capsule (0.4 mg total) by mouth daily asneeded (Kidney stones) More than a month Allergies Allergen Reactions [...] Comment: hysterectomy Alcohol Use: Not At Risk (04/06/2024) AUDIT-C Frequency of Alcohol Consumption: Monthly or less Average Number of Drinks: 1 or 2 Frequency of Binge Drinking: Never Social History Substance and Sexual Activity Drug Use No Vitals: 04/06/24 1420 04/06/24 1425 04/06/24 1430 04/06/24 1435 BP: (!) 195/115 (!) 210/122 BP Location: Right arm Right arm Pulse: 73 73 73 75 Resp: Temp: TempSrc: SpO2: 95% 94% 96% 97% Weight: Height: -- Elevated BP. Denies symptoms. Being treated per anesthesia, Dr Murray at bedside. Review of Systems: Review of systems per HPI and otherwise all other systems are negative Physical exam: Lungs: clear to auscultation bilaterally Heart: regular rate and rhythm, S1, S2 normal, no murmur, click, rub or gallop Neurologic: Alert and oriented x4, grossly intact S/P HYSTERECTOMY Sparkle Drake NP Cosigned by Mynor Francisco MD at 04/06/2024 3:55 PM CDT documented in this encounter Miscellaneous Notes * Perioperative Nursing Note - Jana Lombardo RN - 04/06/2024 2:54 PM CDT Pt BP noted to be elevated. Dr. Murray aware. Multiple IV medications administered without improvement in BP. Dr. Murray at the bedside to update on need to cancel surgery at this time. * Perioperative Nursing Note - Shira Rodriguez RN - 04/03/2024 1:21 PM CDT We are pleased that you and your doctor have chosen [facility] for your surgery. We hope the following information will help make your visit a pleasant one. The name of the building is [facility] and [facility] in [place]. Directions to facility (address [place] [address] [place]. [place] [address] When you enter the building, look directly to your left, you will see 2 glass double doors. These double doors say [address]. Go through those double doors and check in with the painter bottom. Bring glass case Bring pillows, leave in car. Patient has ice/gel packs for home. Remove make-up, perfume, lotions, powders, lipstick and nail malian. Shower the night before and morning of surgery with anti-bacterial soap such as Dial or Phisohex/ Hibiclens. Any soap that says Anti-bacterial. Change linens and pillow cases on bed. Wear clean pajamas to bed. This is for infection prevention. All jewelry and piercings MUST be removed prior to arrival for surgery. Leave jewelry and valuables at home EXCEPT [employer] Copyist's license and Insurance card. You may bring your cell phone, family will hold onto it while you have your procedure. Wear loose-fitting clothes. Something with an elastic waist on the bottom, such as gym shorts or sweat pants depending on the weather. T-shirt on top or a shirt with a loose sleeve unless you are having shoulder surgery then wear a loose fitting button down shirt or a shirt that zips up the front. You may have clear liquids on the day of surgery until two hours before your arrival (1145) to the Orthopedic center. Acceptable clear liquids include water, clear sports drinks, unsweetened tea, black coffee or clear soda. Do Not drink Milk, creamer or Alcohol. You MUST STOP drinking two hours before you arrive to the Orthopedic center. No gums, mints, candy, cough drops, CBD oil, marijuana or chewing tobacco. No ice or water. You may brush your teeth, just make sure you spit it all out. Nothing to eat after Midnight. For medications that the Nurse Practitioner instructed you to take on the morning of surgery, take the medications with a few sips of water t's. will be with patient and care for patient for the first 24 hours post-op. Pt. Instructed to arrive at 1345 for 1545 procedure. Procedure is scheduled for .5 hour(s). Explained to patient, if you develop any [...] or purchase it from the refreshment area. * Perioperative Nursing Note - Anjelica Gallegos RN - 04/01/2024 4:11 PM CDT [facility] Perioperative Nursing Note Telephone Preoperative Evaluation ([facility]) - TELEPHONE ONLY, NO PHYSICAL EXAM Date: 04/01/24 This assessment was completed with the patient. Vitals: 04/01/24 1610 Weight: 81.6 kg (180 lb) Height: 160 cm (5' 3 ) CHEST CIRCUMFERENCE: Social History Tobacco Use Smoking Status Every Day Current packs/day: 0.50 Average packs/day: 0.5 packs/day for 32.4 years (16.2 ttl pk-yrs) Types: Cigarettes Start date: 11/11/1991 Smokeless Tobacco Never Substance and Sexual Activity Drug Use No Alcohol Use Q1: How often do you have a drink containing alcohol?: Never Q2: How many drinks containing alcohol do you have on a typical day when you are drinking?: Patientdoes not drink Q3: How often do you have six or more drinks on one occasion?: Never Outpatient Medications Marked as Taking for the 04/06/24 encounter (Hospital Encounter) Medication Sig Dispense Refill amLODIPine (NORVASC) 10 mg tablet Take 1 [...] 1 tablet (25 mg total) by mouth blasting entryman 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 losartan (COZAAR) 50 mg tablet Take 1 tablet (50 mg total) by mouth 2 (two) times a day MULTIVIT-MINERALS/FERROUS FUM (MULTI VITAMIN ORAL) Take 1 tablet by mouth blasting entryman 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 nebivoloL (BYSTOLIC) 10 mg tablet Take 1 tablet (10 mg total) by mouth every other day omeprazole (PriLOSEC) 20 mg capsule Take 1 capsule (20 mg total) by mouth blasting entryman 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 ondansetron ODT (ZOFRAN-ODT) 4 mg disintegrating tablet Take 1 tablet (4 mg total) by mouth every 8(eight) hours as needed for nausea or vomiting 20 tablet 0 pregabalin (LYRICA) 150 mg capsule Take 1 capsule (150 mg total) by mouth 2 (two) times a day (Patient taking differently: Take 1 capsule (150 mg total) by mouth 2 (two) times a day) 60 capsule 2 tamsulosin (FLOMAX) 0.4 mg extended release capsule Take 1 capsule (0.4 mg total) by mouth daily asneeded (Kidney stones) Implants No active implants to display in this view. SKIN Piercings Remaining: Yes Wound (LDAs) Type of Wound (LDA): (denies) SCREENINGS Sohail index score: 100 PATIENT CARE PLANNING Advance Directives (For Healthcare) Have you reviewed your Advance Directive and is it valid for this stay?: No Advance Directive: Patient does not have advance directive Communication/Skin Peeling Machine Operator Needs Communication Needs: Glasses Assistive Devices/DME: Eyeglasses Hearing - Right Ear: Functional Hearing - Left Ear: Functional Discharge Planning Type of Residence: Private residence Living Arrangements: Spouse/significant other Support Systems: Spouse/significant other 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 This is to lower your risk of infection and to allow the day of surgery team to monitor your oxygen levels. You should leave your valuables and any jewelry at home. No metal or piercings are allowed in the operating room. You should bring your insurance card, a photo ID (example: [employer] Copyist's License) and a method of payment for [...] copy is already in your Epic Chart. A Guide for Patients Having Surgery: Your [...] instructions, please follow your surgeon's orders. Normal Bathing: Bathe with regular soap the night before and/or day of surgery. Normal Bathing Protocol Bathe with your normal soap the night before and/or the morning of surgery. Wear clean clothes or pajamas to sleep in. After showering DO NOT put on deodorant, hair products, conditioners, lotions, creams, powders, Vaseline or any non-essential products. Remove nail coverings, artificial nails and nail malian. Place clean linens on your bed the [...] questions, please call the CPAP Staff at [phone], Saturday-Saturday 8am-4:30pm. All patients should read the below section: Information on [facility] & the Orthopedic Center: Please view [email or web address] (Patient & Visitor Information) for additional details regarding Advanced Directive forms, AWARE, directions, parking information, lodging, Internet access, dining and more. Information on [facility] or [facility] ([facility]): Please view [email or web address] (Patient and Visitor Information) for parking/directions and more. For MyChart information, to activate account or password recovery, please go to [email or web address] or call [phone] (toll-free: [phone]), Sat- Saturday 8am-5pm. Information for Suicide Prevention: National Suicide Prevention Lifeline (2-240- 721-NFVW (1353)) or call or text 857. Chat resources: [employer]. Surgery Times: For patients having surgery @ The [facility], if your surgeon's office has not notified you of your surgery time by NOON THE BUSINESS DAY BEFORE your surgery, please call the surgery center [phone]. The [facility] ([facility]) does not provide arrival times for the day of surgery or provide the duration of surgery. This information is provided by your surgeon'soffice or by the center where you are having surgery. We appreciate your understanding. documented in this encounter Plan of Treatment [...] as of this encounter Visit Diagnoses Diagnosis Right carpal tunnel syndrome- Primary Carpal tunnel syndrome documented in this encounter Admitting Diagnoses Diagnosis Right carpal tunnel syndrome Carpal tunnel syndrome documented in this encounter Administered Medications Inactive Administered Medications - up to 3 most recent administrations Medication Order MAR Action Action Date Dose Rate Site enalaprilat (VASOTEC) injection 1.25 mg 1.25 mg, intravenous, Administer over 5 Minutes, Once, On Sat04/06/24 at 1500, For 1 dose, Pre-Op Given 04/06/2024 2:30 PM CDT 1.25 mg labetaloL (NORMODYNE,TRANDATE) injection 10 mg 10 mg, intravenous, at 60 mL/hr, Administer over 2 Minutes, As needed, high blood pressure, diastolic over 100, Starting on Sat04/06/24 at 1405, For 3 doses, Pre-Op Given 04/06/2024 2:13 PM CDT 10 mg 60 mL/hr Lactated Ringer's (LR) infusion 30 mL/hr, intravenous, Continuous, Starting on Sat04/06/24 at 1415, Pre-Op, Use a 500 ml bag for End Stage Renal Disease Patients New Bag 04/06/2024 2:10 PM CDT 30 mL/hr 30 mL/hr lidocaine (PF) (XYLOCAINE) 10 mg/mL (1 %) preservative free injection 2-10 mg 2-10 mg (0.2-1 mL), subcutaneous, Once as needed, pain with IV placement, Starting on Sat04/06/24 at 1342, For 1 dose, Pre-Op, Administer volume needed to infiltrate IV site. Given 04/06/2024 2:10 PM CDT 2 mg Left Forearm documented in this encounter Discontinued Medications Medication Sig Discontinue Reason Start Date End Da te varenicline tartrate (CHANTIX RON) 0.5 mg (11)- 1 mg (42) tablet Take by mouth as directed 02/21/2024 04/01/2024 documented as of this encounter Active and Recently Administered Medications Times are shown in CDT. Scheduled Medication Order 04/04/2024 04/05/2024 04/06/2024 enalaprilat (VASOTEC) injection 1.25 mg (COMPLETED) 1.25 mg, intravenous, Administer over 5 Minutes, Once, On Sat04/06/24 at 1500, For 1 dose, Pre-Op 1430 (Given - Provid er: Jana Lombardo RN) scopolamine patch 72 hour 1 patch 1 patch, transdermal, Administer over 72 Hours, Once, On Sat04/06/24 at 1415, For 1 dose, Pre-Op, Apply to beach-chair position shoulder surgery patients, and to patients with a history of PONV and/or Motion Sickness. Do NOT administer to patients with a history of BPH or Glaucoma. Consult Anesthesiologist with any questions. In case of urinary retention, remove patch immediately and clean patch site with alcohol., Indications: Motion Sickness, Prevention of Motion Sickness, Prevention of Post-Operative Nausea and Vomiting 141 (Due) Continuous Medication Order 04/04/2024 04/05/2024 04/06/2024 Lactated Ringer's (LR) infusion 30 mL/hr, intravenous, Continuous, Starting on Sat04/06/24 at 1415, Pre-Op, Use a 500 ml bag for End Stage Renal Disease Patients 141 (New Bag - Prov ider: Jana Lombardo RN)1913 (Due: Stopped) PRN Medication Order 04/04/2024 04/05/2024 04/06/2024 labetaloL (NORMODYNE,TRANDATE) injection 10 mg 10 mg, intravenous, at 60 mL/hr, Administer over 2 Minutes, As needed, high blood pressure, diastolic over 100, Starting on Sat04/06/24 at 1405, For 3 doses, Pre-Op 1413 (Given - Provid er: Jana Lombardo RN) lidocaine (PF) (XYLOCAINE) 10 mg/mL (1 %) preservative free injection 2-10 mg (COMPLETED) 2-10 mg (0.2-1 mL), subcutaneous, Once as needed, pain with IV placement, Starting on Sat04/06/24 at 1342, For 1 dose, Pre-Op, Administer volume needed to infiltrate IV site. 1410 (Given - Provid er: Jana Lombardo RN) sodium chloride 0.9% flush 0.5-20 mL 0.5-20 mL, intra-catheter, As needed, line care, Flush [place] Block Hep Locks to keep vein open., Starting on 04/06/24 at 1342, Pre-Op, Flush volume based on line type and size. Flush before and after each use. , Indications: Flushing documented in this encounter Orders Medications Ordered That Noe ht Not Have Been Administered Count Last Ordered Date First Ordered Date scopolamine patch 72 hour 1 patch 1 024 sodium chloride 0.9% flush 0.5-20 mL 1 03/13 documented in this encounter Care Teams Wrong Address Clerk Relationship Specialty Start Date End Date Lucas Carter DO PCP - General Internal Medicine 08/15/22 documented as of this encounter
--- OUTSIDE RECORDS SUMMARY | 2024-08-17 01:53 | XMS_ITS | Encounter Summary ---
Author Organization [facility] Address [address] [place] [address] Phone Care Team Providers Care Inspector And Hand Packager Name Role Phone Lucas Carter DO Primary Care Provider +1- [phone] Reason for Visit * Reason Comments Pain Numbness * Consultation (Routine) - Pending Review Specialty Diagnoses / Procedures Referred By Lluvia webb Referred To Contact Orthopedic Surgery Diagnoses B[place] [address] [place] [address] Phone: tel: fax: Mynor Francisco MD [address] [facility] [address] [place] [address] Phone: tel: fax: Referral ID Status Reason Start Date Expiration Date Visits Requested Visits Authorized [id number] Pending Review Specialty Services Required 12/31/2023 01/29/2025 1 1 Encounter Details Date Type Department Care Team (Late st Contact Info) Description 04/01/2024 2:40 PM CDT Office Visit [facility] Orthopaedic Surgery [address] [place] [address] 6th [place] [address] [place] [id number] Mynor Francisco MD [address] [facility] [address] [place] [address] Carpal tunnel syndrome, bilateral (Primary Dx); Bilateral hand numbness Social History Tobacco Use Types Packs/Day Years Used Date Smoking Tobacco: Every Day Cigarettes 0.5 32.8 Started: 11/11/1991 Smokeless Tobacco: Never Tobacco Cessation:Ready to Q uit: Yes; Counseling Given: Not Answered Alcohol Use Standard [...] on file Legal Sex Female 9:06 PM 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 Very happy with her left [...] Dr. Mynor Francisco dictating with [employer]. Internet Webmaster variances may occur. Mynor Francisco M.D. Professor Hand and Upper Extremity Surgery [facility] Orthopedics documented in this encounter Plan of Treatment [...] on stairs Contact your local community or [facility] for information on exercise, fall prevention programs, or options for improving home safety. documented as of this encounter Visit Diagnoses Diagnosis Carpal tunnel syndrome, bilateral- Primary Carpal tunnel syndrome Bilateral hand numbness Disturbance of skin sensation documented in this encounter Historical Medications * This list may reflect changes made after this encounter. varenicline tartrate (CHANTIX RON) 0.5 mg (11)- 1 mg (42) tablet Take by mouth as directed 02/21/2024 04/01/2024 added in this encounter Orders Outpatient Referral Count Last Ordered Date Fir st Ordered Date AMB REFERRAL TO ORTHOPEDIC HAND 1 4 documented in this encounter Care Teams Inspector And Hand Packager Relationship Specialty Start Date End Date Lucas Carter DO PCP - General Internal Medicine 08/15/22 documented as of this encounter
--- OUTSIDE RECORDS SUMMARY | 2024-08-17 01:53 | XMS_ITS | Encounter Summary ---
Author Organization [facility] Healthcare Address [address] [place] [address] Care Team Providers Care Medical Communication Specialist Name Role Phone Lucas Carter DO Primary Care Provider [phone]- [phone] Reason for Visit * Reason Onset Date Comments PMC Intake Assessment 11/11/2023 Encounter Details Date Type Department Care Team (Late st Contact Info) Description 11/11/2023 Telephone [facility] [place] [id number] [address], [address] [place] [id number] Darlene Galindo RN [facility] Intake Assessment Social History Tobacco Use Types Packs/Day Years [...] on file Legal Sex Female 9:06 PM AUTOMOTIVE WHOLESALE 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 Neck pain , lower back pain Do you have any numbness, tingling, or weakness? Right and left hand numbness. Numbness is primarily in the left hand-1st through 3rd digits , some weakness in the legs How long have has the pain been going on? Chronic Was there any accident or injury that started the pain? Denies What would you rate your pain on the number scale 1-10 with 10 being the most severe/ you can give me a range from your best to your worst? 6-8/10 Have you had any physical therapy/ when did you complete it/ how many sessions/was it helpful? Has had PT in the past but not recently Are you doing home exercises? Yes What medications are you currently taking for the pain and what medications have you tried? Has tried cyclobenzaprine, gabapentin- had bad side effects, oral steroids, hydrocodone-apap 5/325 mg * discussed medication policy with pt, no opioids would be prescribed- pt verbalized understanding Have you had pain management before? Yes What is the name and location of previous pain management? Approx 10 years ago, had both cervical and lumbar injections, lumbar inj helped the most : pt expressed interest in trying injections again Have you had any injections in the past 12 months? Denies Have you had any imaging done? EXAMINATION: 1. Magnetic resonance imaging (MRI) of the cervical spine without contrast 2. Magnetic resonance imaging (MRI) of the thoracic spine without contrast 3. Magnetic resonance imaging (MRI) of the lumbar spine without contrast HISTORY: Spinal stenosis. TECHNIQUE: Multiplanar multi-weighted MRI of the cervical spine was performed without intravenous contrast using the standard protocol. Multiplanar multi-weighted MRI of the thoracic spine was performed without intravenous contrast using the standard protocol. Multiplanar multi-weighted MRI of the lumbar spine was performed without intravenous contrast using the standard protocol. COMPARISON: 05/15/2016 FINDINGS: CERVICAL SPINE: Normal craniocervical junction. 2 mm of C4 on C5 and C5 on C6 posterior subluxation is stable. Congenital interbody C6-C7 fusion again noted. Bone marrow signal intensity is normal. Cervical spinal cord signal intensity is normal. Slight interval enlargement of left central C4-C5 disc protrusion with a punctate T2 hyperintense annular fissure effacing the anterior and posterior thecal sac with subtle deformity of the anterior spinal cord margin. Normal spinal cord signal intensity. No neural foraminal stenosis at this level. The facets are normal despite the subluxation. Stable small C5-C6 posterior disc osteophyte complex with mild bilateral neural foraminal stenosis resulting from uncovertebral hypertrophy with normal facet joints. Moderate bilateral C7-T1 facet arthropathy. No edema. The cervical spine is otherwise unremarkable. THORACIC SPINE: Thoracic alignment is normal. Bone marrow signal intensity is normal. Spinal cord signal intensity is normal. See details of mild compression below. Slight interval enlargement of T6-T7 central disc protrusion with no central canal stenosis. T10-T11 and T11-T12 central disc extrusions are stable. A multilobulated right posterior lateral leptomeningeal cyst measuring 3.8 cm craniocaudal x8.3 mm transverse is unchanged. The fluid collection insinuates into the right T12 pedicle where there is smooth margination within the bone. Thin septa are visible within the cyst. The cyst exerts mass effect on the right posterior lateral thecal sac which in combination with disc herniation creates mild distal spinal cord compression at the T11-T12 interspace. Buckling of the ligamentum flavum and disc herniation T8-T10-T11 effaces the anterior and posterior thecal sac but there is no cord compression at this level. Moderate right facet arthropathy again noted at T10-T11. LUMBAR SPINE: Alignment is normal. No fracture. Bone marrow signal intensity is normal. Next Small posteriorly directed left L2-L3 cyst associated with the lateral facet joint not seen on the previous study. Stable mild bilateral L3-L4 facet arthropathy. Next Moderate bilateral L4-L5 facet arthropathy with tiny joint effusions but no associated marrow edema. The facets appears similar on the previous study. L5-S1 disc desiccation and left lateral recess/foraminal disc osteophyte complex abutting the left descending S1 nerve root without compression in the lateral recess. No central canal or right lateral recess stenosis. Moderate left L5-S1 neural foraminal stenosis results from endplate spur which mildly deforms the inferior margin of the exiting L5 nerve root. A thin rim of fat is still visible anterior, superior and inferior to the nerve root. IMPRESSION: 1. Slight interval increase in left [...] root in the lateral recess without compression. Are you on a prescription blood thinner/ who prescribes? denies You have been referred for evaluation NPP mailed * Telephone Encounter - Darlene Galindo RN - 11/11/2023 9:43 AM CDT Unable to leave voicemail, mailbox full. documented in this encounter Plan of Treatment Not on file documented as of this encounter Visit Diagnoses Not on filedocumented in this encounter Care Teams Medical Communication Specialist Relationship Specialty Start Date End Date Lucas Carter DO PCP - General Internal Medicine 08/15/22 documented as of this encounter
--- OUTSIDE RECORDS SUMMARY | 2024-08-17 01:53 | XMS_ITS | Encounter Summary ---
Author Organization [facility] Healthcare Address [address] [place] [address] Care Team Providers Care Air Valve Mechanic Name Role Phone Lucas Carter DO Primary Care Provider [phone]- [phone] Reason for Referral * MRI/CAT/PET Scan (Routine) - Closed Specialty Diagnoses / Procedures Referred By Contac t Referred To Contact Radiology Diagnoses Spinal stenosis, multiple sites in spine Procedures MRI Spine [place] [address] [place] [address] Phone: tel: fax: [address] [address] Referral ID Status Reason Start Date Expiration Date Visits Re quested Visits Authorized [id number] Closed 10/11/2023 12/09/2023 1 1 Reason for Visit * MRI/CAT/PET Scan (Routine) - Closed Specialty Diagnoses / Procedures Referred By Contac t Referred To Contact Radiology Diagnoses Spinal stenosis, multiple sites in spine Procedures MRI Spine [place] [address] [place] [address] Phone: tel: fax: [address] [address] Referral ID Status Reason Start Date Expiration Date Visits Re quested Visits Authorized [id number] Closed 10/11/2023 12/09/2023 1 1 Encounter Details Date Type Department Care Team (Latest Contact Info) Description 10/21/2023 4:32 PM CDT - 10/21/2023 11:59 PM CDT Hospital Encounter [facility] [id number] [place] [id number] Spinal stenosis, multiple sites in spine Discharge Disposition: Discharge to home or self [...] making you feel afraid or unsafe? Denies 08/23/2023 Comments No Sex and Gender Information Value Date Recorded Sex Assigned at Not on file Legal Sex Female 9:06 PM DECORATOR MANNEQUIN Gender Identity Female 10/01/2023 8:44 AM DECORATOR MANNEQUIN Sexual Orientation Straight 10/01/2023 8: 44 AM DECORATOR MANNEQUIN documented as of this encounter Medications at Time of Discharge hydroCHLOROthiazide (HYDRODIURIL) 25 mg tabletIndications:h ypertension Take 1 tablet (25 mg total) by mouth early childhood educator aide 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 losartan (COZAAR) 50 mg tabletIndications:h ypertension Take 1 tablet (50 mg total) by mouth 2 (two) times a day MULTIVIT-MINERALS/F ERROUS FUM (MULTI VITAMIN ORAL)Indications:he alth Take 1 tablet by mouth early childhood educator aide 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 omeprazole (PriLOSEC) 20 mg capsuleIndications: Treatment of Non-Bleeding Gastric Disorder Take 1 capsule (20 mg total) by mouth early childhood educator aide 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 ondansetron ODT (ZOFRAN-ODT) 4 mg disintegrating tablet Take 1 tablet (4 mg total) by mouth every 8 (eight) hours as needed for nausea or vomiting 20 tablet 3 acetaminophen (TYLENOL) 500 mg tablet Take 1 tablet (500 mg total) by mouth every 6 (six) hours as needed for pain, headaches or fever 30 tablet 4 01/29/20 24 amLODIPine (NORVASC) 10 mg tablet Take 1 tablet (10 mg total) by mouth daily 30 tablet 3 01/29/20 24 cyclobenzaprine (FLEXERIL) 10 mg tablet Take 10 mg by mouth nightly as needed for muscle spasms 01/29/20 24 dicyclomine (BENTYL) 20 mg tablet Take 1 tablet (20 mg total) by mouth every 6 (six) hours as needed (abdominal pain) 30 tablet 4 01/29/20 24 fluconazole (DIFLUCAN) 150 mg tablet Take 1 tablet orally as directed. 1 tablet 3 01/29/20 24 gabapentin (NEURONTIN) 300 mg capsule Take 1 capsule (300 mg total) by mouth 3 (three) times a day For post-herpetic neuralgia: Take 1 tablet on day 1, Then take 2 tablets on day 2, Then take 3 tablets on day 3 and every day after that as instructed by your doctor. 90 capsule 11 2 01/29/20 24 hydrALAZINE (APRESOLINE) 25 mg tabletIndications:h ypertension Take 1 tablet (25 mg total) by mouth 3 (three) times a day 90 tablet 3 01/29/20 24 HYDROcodone-acetami nophen (NORCO) 5-325 mg per tabletIndications:P ain Take 1 tablet by mouth every 6 (six) hours as needed for pain for up to 8 doses 8 tablet 3 01/29/20 24 ibuprofen (ADVIL,MOTRIN) 400 mg tablet Take 1 tablet (400 mg total) by mouth every 6 (six) hours as needed for pain 30 tablet 4 01/29/20 24 meloxicam (MOBIC) 15 mg tabletIndications:a nti-inflammatory Take 1 tablet (15 mg total) by mouth daily 30 tablet 4 02/27/20 24 methylPREDNISolone (MEDROL DOSEPACK) 4 mg Dosepack Use as directed by package instructions 21 tablet 4 11/01/19 24 oxyCODONE (ROXICODONE) 5 mg immediate release tabletIndications:P ain Take 1 tablet (5 mg total) by mouth every 6 (six) hours as needed (severe pain) 12 tablet 4 01/29/20 24 tamsulosin (FLOMAX) 0.4 mg extended release capsuleIndications: Urolithiasis Take 1 capsule (0.4 mg total) by mouth daily as needed (Kidney stones) 04/20/20 24 documented as of this encounter Discharge Disposition Disposition Code Departure Means Destination Discharge to home or self care documented in this encounter Plan of Treatment Not on file documented as of this encounter Procedures Procedure Name Priority Date/Time Associated Diagnosis Comments MRI SPINE TOTAL COMPLETE WO CONTRAST Schedule Routine, Read Routine (OP Routine) 10/21/2023 6:45 PM CDT Spinal stenosis, multiple sites in spine documented in this encounter Results * MRI Spine Total Complete WO Contrast (10/21/2023 6:45 PM CDT) Anatomical Region Laterality Modality Spine N/A Magnetic Resonan ce 10/22/2023 8:08 AM CDT Impressions 10/22/2023 8:08 AM CDT 1. ??Slight interval increase in left central C4-C5 disc protrusion now effacing the anterior and posterior thecal sac and creating subtle deformity of the anterior margin of the spinal cord. ??Cervical spinal cord signal intensity remains normal. ??Stable mild C5-C6 degenerative disc disease above a C6-C7 congenital interbody fusion. 2. T10-T11 and T11-T12 leptomeningeal cyst exerting mass effect on the right posterior lateral thecal sac. ??This in combination with a T11-T12 disc herniation causes mild distal thoracic spinal cord compression without cord signal abnormality. ??See additional details above. ??Appearance is unchanged compared to the previous study. 3. Stable lumbar facet arthropathies and L5-S1 degenerative disc disease with mild exiting left L4 nerve root impingement and disc osteophyte complex in contact with the descending left S1 nerve root in the lateral recess without compression. Electronically signed by: MD Braden Mclean 10/22/2023 8:08 AM CDT EXAMINATION: 1. Magnetic resonance imaging (MRI) of [...] 05/15/2016 FINDINGS: CERVICAL SPINE: Normal craniocervical junction. ??2 mm of C4 on C5 and C5 on C6 posterior subluxation is stable. ??Congenital interbody C6-C7 fusion again noted. ??Bone marrow signal intensity is normal. ?? Cervical spinal cord signal intensity is normal. Slight interval enlargement of left central C4-C5 disc protrusion with a punctate T2 hyperintense annular fissure effacing the anterior and posterior thecal sac with subtle deformity of the anterior spinal cord margin. ??Normal spinal cord signal intensity. ??No neural foraminal stenosis at this level. ??The facets are normal despite the subluxation. Stable small C5-C6 posterior disc osteophyte complex with mild bilateral neural foraminal stenosis resulting from uncovertebral hypertrophy with normal facet joints. Moderate bilateral C7-T1 facet arthropathy. ??No edema. The cervical spine is otherwise unremarkable. THORACIC SPINE: Thoracic alignment is normal. ??Bone marrow signal intensity is normal. Spinal cord signal intensity is normal. ??See details of mild compression below. Slight interval enlargement of T6-T7 central disc protrusion with no central canal stenosis. T10-T11 and T11-T12 central disc extrusions are stable. ??A multilobulated right posterior lateral leptomeningeal cyst measuring 3.8 cm craniocaudal x8.3 mm transverse is unchanged. ??The fluid collection insinuates into the right T12 pedicle where there is smooth margination within the bone. ??Thin septa are visible within the cyst. ??The cyst exerts mass effect on the right posterior lateral thecal sac which in combination with disc herniation creates mild distal spinal cord compression at the T11-T12 interspace. ??Buckling of the ligamentum flavum and disc herniation T8-T10-T11 effaces the anterior and posterior thecal sac but there is no cord compression at this level. ??Moderate right facet arthropathy again noted at T10-T11. LUMBAR SPINE: Alignment is normal. ??No fracture. ??Bone marrow signal intensity is normal. ??Next Small posteriorly directed left L2-L3 cyst associated with the lateral facet joint not seen on the previous study. Stable mild bilateral L3-L4 facet arthropathy. ??Next Moderate bilateral L4-L5 facet arthropathy with tiny joint effusions but no associated marrow edema. ??The facets appears similar on the previous study. L5-S1 disc desiccation and left lateral recess/foraminal disc osteophyte complex abutting the left descending S1 nerve root without compression in the lateral recess. ??No central canal or right lateral recess stenosis. ??Moderate left L5-S1 neural foraminal stenosis results from endplate spur which mildly deforms the inferior margin of the exiting L5 nerve root. ??A thin rim of fat is still visible anterior, superior and inferior to the nerve root. ?? Procedure Note Lucas Phillips MD PhD - 10/22/2023 EXAMINATION: 1. Magnetic resonance imaging (MRI) of [...] root in the lateral recess without compression. Electronically signed by: Lucas Phillips MD Catherine Teague MD IMG MRI PROCEDURES Final Result documented in this encounter Visit Diagnoses Diagnosis Spinal stenosis, multiple sites in spine documented in this encounter Care Teams Air Valve Mechanic Relationship Specialty Start Date End Date Lucas Carter DO PCP - General Internal Medicine 08/15/22 documented as of this encounter
--- OUTSIDE RECORDS SUMMARY | 2024-08-17 01:53 | XMS_ITS | Encounter Summary ---
Author Organization [facility] Healthcare Address [address] [place] [address] Care Team Providers Care Director Of Student Aid Name Role Phone Lucas Carter DO Primary Care Provider [phone]- [phone] Encounter Details Date Type Department Care Team (Late st Contact Info) Description 02/18/2024 Telephone [facility] [place] [facility] [address] [facility] [address] [place] [address] Kevin Dunn MD [address] [facility] [address] [place], [place] [id number] Social History Tobacco Use Types Packs/Day Years [...] on file Legal Sex Female 9:06 PM PRINCIPAL NETWORK ENGINEER Gender Identity Female 10/01/2023 8:44 AM PRINCIPAL NETWORK ENGINEER Sexual Orientation Straight 10/01/2023 8: 44 AM PRINCIPAL NETWORK ENGINEER documented as of this encounter Miscellaneous Notes * Telephone Encounter - Keisha Johnson RN - 02/18/2024 4:36 PM CDT See MyChart message dated 01/29/24. Thread goes through 02/18/24. documented in this encounter Plan of Treatment [...] on filedocumented in this encounter Care Teams Director Of Student Aid Relationship Specialty Start Date End Date Lucas Carter DO PCP - General Internal Medicine 08/15/22 documented as of this encounter
--- OUTSIDE RECORDS SUMMARY | 2024-08-17 01:53 | XMS_ITS | Encounter Summary ---
Author Organization [facility] Healthcare Address [address] [place] [address] Care Team Providers Care Head Of Academic Technology Name Role Phone Lucas Carter DO Primary Care Provider [phone]- [phone] Reason for Visit * Auth/Cert (Routine) Specialty Diagnoses / Procedures Referred By Contsandhya t Referred To Contact Diagnoses Right carpal tunnel syndrome Right carpal tunnel syndrome [G56.01] Procedures ME REVISE MEDIAN N/CARPAL TUNNEL SURG RIGHT CARPAL TUNNEL RELEASE Referral ID Status Reason Start Date Expiration Date Visits Re quested Visits Authorized [id number] 1 1 Encounter Details Date Type Department Care Team (Late st Contact Info) Description 04/06/2024 3:45 PM CDT Anesthesia Event [facility] [address] [place] [id number] Valeriano Murray MD [address] [place] [address] Olivia Monk NP [address] [facility] [phone] [place] [address] Anesthesia Record Procedure Summary Procedure Name Responsible Anesthesiologist Anesthesia Start Time Anesthesia Stop Time RIGHT CARPAL TUNNEL RELEASE (Right: Wrist) Events Date Time Event Comment 04/06/2024 1358 AN Equip Check [phone] Case Cancelled in Pre-op Pat ient's blood pressure elevated despite treatment. Case canceled. Attempted to contact her primary MD but was unsuccessful. Patient communicates regularly with his office on [place] so she was advised to take all her BP meds today as usual and contact her physician to get meds adjusted. She states her blood pressure runs where she is today despite taking medications as directed. Meds Name Total Lactated Ringer's (LR) infusion 0 mL * Agents No agents on file. * Blood No blood administrations on file. Lines, Drains, and Airways No LDAs on file. 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 [facility] Pre[facility] Planning Preoperative Evaluation Record Evaluation type/location: TPAP from [facility] Planned procedure site: [facility] Date: 04/03/24 NOTE: This note represents a preoperative evaluation initiated via telephone interview. NO PHYSICALEXAM was performed at the time of initial assessment. A physical exam may be added to this note anddocumented below. Anesthesia Evaluation Renee Luke is a 44 y.o. female RIGHT CARPAL TUNNEL RELEASE (Right: Wrist) Pre-Op Diagnosis Codes: * Right carpal tunnel syndrome [G56.01] HISTORY HPI Renee Luke is a 44 yo female who is being evaluated prior to undergoing right CTR for CTS Past Medical History Information obtained from: patient [...] (Elevated with pain) Typical systolic BP - 140 Typical diastolic BP - 90 Pertinent negatives: CAD ; NE ; CABG ; valvular heart disease; atrial fibrillation; pacemaker/ICD; DVT/PE; negative for CHF; drug-eluting stent(s) and bare metal stent(s) Respiratory + Current smoker - Counseled to abstain from smoking the day of surgery. Patient smoked on day of surgery. Pertinent negatives: COPD; sleep apnea (CARIDAD); pulmonary hypertension; no O2 use outside the hospital and no tracheostomy Hepatic / Heme Pertinent negatives: liver disease Gastrointestinal + GERD - on daily therapy. Asymptomatic. Renal / + Nephrolithiasis (history) Pertinent negatives: renal disease and dialysis Musculoskeletal/Pain + Chronic pain (Generalized. F/b pain management.) - neck pain and back pain. 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 No CP.SOB with grocery shopping, [...] problems and syncope PAT Summary and Plans Additional comments: Renee Luke is a 44 y.o. female who is being evaluated prior to undergoing a low cardiac risk surgery. Revised Cardiac Risk Index factors are (none) for a total RCRI of 0 out of6. Functional capacity is 4-6 METs. NOTE: This note represents a preoperative evaluation initiated via telephone interview. NO PHYSICALEXAM was performed at the time of initial assessment. A physical exam may be added to this note anddocumented below. Obstructive sleep apnea (CARIDAD) screening status is STOP-BANG incomplete but suspected to be 0-2 suggesting low risk for CARIDAD. Neck circumference pending.. Blood bank needs for day of procedure: No type and screen needed Pending labs/tests include: None Patient instructions were provided via telephone and in writing sent via [employer]. Patient verbalized understanding of DOS instruction. -Pt with elevated BP on chart review- BP at pain management appt 03/26 was 236/115. Recheck with manual blood pressure was 210/120. Pt reports elevated BP when she does not take BP medications and with increased pain and bouts of inflammation. Reports pain is better controlled after visit with pain m anagement- home BP Good with average of 130-140/90 when taking BP medication. Instructed patient to continue all BP medication and pain medication perioperatively, at risk for cancellation on DOS if BP significantly elevated. Pt verbalized understanding. TPAP Complete Preoperative evaluation performed by Olivia Monk NP on 04/03/24 at 8:19 AM . Patient Active Problem List Diagnosis Date [...] Hives and Urticaria Hydralazine Headache and Vomiting Med List Status: Nurse Complete Set By: Anjelica Gallegos RN at 04/01/2024 4:07 PM Taking? 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 Notes: Has not started cyclobenzaprine (FLEXERIL) 10 mg tablet 03/31/2024 01/29/24 -- Kevin Dunn MD Take 1 tablet (10 mg total) by mouth 3 (three) times a day as needed for muscle spasms Patient taking differently: Take 1 tablet (10 mg total) by mouth 3 (three) times a day as needed for muscle spasms hydroCHLOROthiazide (HYDRODIURIL) 25 mg tablet 04/01/2024 -- -- ProviderMargarita MD losartan (COZAAR) 50 mg tablet 04/01/2024 -- -- Margarita Bunch MD MULTIVIT-MINERALS/FERROUS FUM (MULTI VITAMIN ORAL) 04/01/2024 -- -- Margarita Bunch MD nebivoloL (BYSTOLIC) 10 mg tablet 03/31/2024 01/03/24 -- Margarita Bunch MD omeprazole (PriLOSEC) 20 mg capsule 04/01/2024 -- -- Margarita Bunch MD ondansetron ODT (ZOFRAN-ODT) 4 mg disintegrating tablet Past Month 08/10/23 -- Jamila Clements PA Take 1 tablet (4 mg total) by mouth every 8 (eight) hours as needed for nausea or vomiting pregabalin (LYRICA) 150 mg capsule 04/01/2024 01/29/24 -- Kevin Dunn MD Take 1 capsule (150 mg total) by mouth 2 (two) times a day Patient taking differently: Take 1 capsule (150 mg total) by mouth 2 (two) times a day sulfamethoxazole-trimethoprim (BACTRIM DS) 800-160 mg per tablet More than a month 01/20/24 -- ProviderMargarita MD tamsulosin (FLOMAX) 0.4 mg extended release capsule Past Month -- -- ProviderMargarita MD No current facility-administered medications for this encounter. Current Outpatient Medications: amLODIPine (NORVASC) 10 mg tablet cyclobenzaprine (FLEXERIL) 10 mg tablet hydroCHLOROthiazide (HYDRODIURIL) 25 mg tablet losartan (COZAAR) 50 mg tablet MULTIVIT-MINERALS/FERROUS FUM (MULTI VITAMIN ORAL) nebivoloL (BYSTOLIC) 10 mg tablet omeprazole (PriLOSEC) 20 mg capsule ondansetron ODT (ZOFRAN-ODT) 4 mg disintegrating tablet pregabalin (LYRICA) 150 mg capsule tamsulosin (FLOMAX) 0.4 mg extended release capsule celecoxib (CeleBREX) 200 mg capsule sulfamethoxazole-trimethoprim (BACTRIM DS) 800-160 mg per tablet Social History Tobacco Use Smoking Status Every Day Current packs/day: 0.50 Average packs/day: 0.5 packs/day for 32.4 years (16.2 ttl pk-yrs) Types: Cigarettes Start date: 11/11/1991 Smokeless Tobacco Never Alcohol Use: Not At Risk (04/01/2024) AUDIT-C Frequency of Alcohol Consumption: Never Average [...] and allergies reviewed. Attestation: This PAT evaluation 04/06/2024. Airway Exam: Mallampati: II Cervical ROM: FROM TM distance: 3 Cardiovascular Exam: Rate: regular Rhythm: regular Pulmonary Exam: LCTA, bilat Dental Exam: Appears intact Anesthesia Plan ASA 3 My patient is approved for the Anesthesia Controlled Medication protocol when under care of a POLYSOMNOGRAPHIC TECH Planned anesthesia: Regional as primary anesthetic and [...] stairs Contact your local community or senior jackson for information on exercise, fall prevention programs, or options for improving home safety. documented as of this encounter Visit Diagnoses Not on filedocumented in this encounter Care Teams Head Of Academic Technology Relationship Specialty Start Date End Date Lucas Carter DO PCP - General Internal Medicine 08/15/22 documented as of this encounter
--- OUTSIDE RECORDS SUMMARY | 2024-08-17 01:53 | XMS_ITS | Encounter Summary ---
Author Organization [facility] Address [address] [place] [address] Phone Care Team Providers Care Biomedical Engineer Name Role Phone Lucas Carter DO Primary Care Provider +1- [phone] Reason for Referral * Consultation (Routine) - Pending Review Specialty Diagnoses / Procedures Referred By Lluvia webb Referred To Contact Pain Management Diagnoses Chronic bilateral low back pain without sciatica Chronic neck pain Bilateral [place] [address] [place] [address] Phone: tel: fax: [place] [address] [place] [id number] Referral ID Status Reason Start Date Expiration Date Visits Requested Visits Authorized [id number] Pending Review Specialty Services Required 11/07/2023 12/06/2024 1 1 Question Answer Please select the performing region: [facility] [[id number]] # of visits: 1 Comments First available for Medication Management for neck, low back pain and hand numbness Encounter Details Date Type Department Care Team (Late st Contact Info) Description 11/07/2023 Orders Only [facility] Orthopaedic Surgery [facility] Office Building [address] [place] [address] [place] [address] [place] [address] Chronic bilateral low back pain without sciatica (Primary Dx); Chronic neck pain; Bilateral hand numbness Social History Tobacco Use [...] on file 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 Gender Identity Female 10/01/2023 8:44 AM PURE PAK MACHINE OPERATOR Sexual Orientation Straight 10/01/2023 8: 44 AM PURE PAK MACHINE OPERATOR documented as of this encounter Plan of Treatment Scheduled Referrals Name Type Priority Associated Diagnoses Order Schedule Ambulatory referral to Pain Management Outpatient Referral Routine Chronic bilateral low back pain without sciatica Chronic neck pain Bilateral hand numbness Expected: 11/21/2023 (Approximate), Expires: 11/06/2024 documented as of this encounter Visit Diagnoses Diagnosis Chronic bilateral low back pain without sciatica- Primary Chronic neck pain Cervicalgia Bilateral hand numbness Disturbance of skin sensation documented in this encounter Care Teams Biomedical Engineer Relationship Specialty Start Date End Date Lucas Carter DO PCP - General Internal Medicine 08/15/22 documented as of this encounter
--- OUTSIDE RECORDS SUMMARY | 2024-08-17 01:53 | XMS_ITS | Encounter Summary ---
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 Please call us at your earliest convenience to discuss scheduling your appointment with our [facility]. If you have insurance, please be prepared to provide us with your most recent, active insurance information. We will also need you to provide a working phone number, when you call. We can be contacted at [phone]. We look forward to hearing from you. Sincerely, [facility] documented in this encounter Plan of Treatment Not on file documented as of this encounter Visit Diagnoses Not on filedocumented in this encounter Care Teams Wardsperson Relationship Specialty Start Date End Date Lucas Carter DO PCP - General Internal Medicine 08/15/22 documented as of this encounter
--- OUTSIDE RECORDS SUMMARY | 2024-08-17 01:53 | XMS_ITS | Encounter Summary ---
Author Organization [facility] Healthcare Address [address] [place] [address] Care Team Providers Care [employer] Repairer Name Role Phone Lucas Carter DO Primary Care Provider [phone] Reason for Visit * Reason Comments Flank Pain Numbness Encounter Details Date Type Department Care Team (Late st Contact Info) Description 01/21/2024 10:32 PM CDT - 01/22/2024 5:16 AM CDT Emergency [facility] Emergency Department [address] [place] [address] Acute cystitis without hematuria; Flank pain Discharge Disposition: Discharge to home or self [...] on file Legal Sex Female 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 [employer] Gender Identity Female 10/01/2023 8:44 AM SALESPERSON [employer] Sexual Orientation Straight 10/01/2023 8: 44 AM SALESPERSON [employer] documented as of this encounter Last Filed Vital Signs Vital Sign Reading Time Taken Comments Blood Pressure 157/113 01/22/2024 4:40 AM CDT Pulse 67 01/22/2024 4:40 AM CDT Temperature 36.7 ??C (98 ??F) 01/21/2024 8:19 PM CDT Respiratory Rate 18 01/21/2024 8:19 PM CDT Oxygen Saturation 95% 01/22/2024 4:40 AM CDT Inhaled Oxygen Concentration - - Weight - - Height - - Body Mass Index - - documented in this encounter Discharge Instructions * Attachments The following attachments cannot be sent through Care Everywhere. * Flank Pain, Uncertain Cause (Slovenian) documented in this encounter Medications at Time of Discharge hydroCHLOROthiazide (HYDRODIURIL) 25 mg tabletIndications:h ypertension Take 1 tablet (25 mg total) by mouth scrap wheeler 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 losartan (COZAAR) 50 mg tabletIndications:h ypertension Take 1 tablet (50 mg total) by mouth 2 (two) times a day MULTIVIT-MINERALS/F ERROUS FUM (MULTI VITAMIN ORAL)Indications:he alth Take 1 tablet by mouth scrap wheeler 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 nebivoloL (BYSTOLIC) 10 mg tabletIndications:h ypertension Take 1 tablet (10 mg total) by mouth every other day 01/03/2024 omeprazole (PriLOSEC) 20 mg capsuleIndications: Treatment of Non-Bleeding Gastric Disorder Take 1 capsule (20 mg total) by mouth scrap wheeler 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 ondansetron ODT (ZOFRAN-ODT) 4 mg disintegrating tablet Take 1 tablet (4 mg total) by mouth every 8 (eight) hours as needed for nausea or vomiting 20 tablet 08/10/2023 cephalexin (KEFLEX) 500 mg capsule Take 1 capsule (500 mg total) by mouth 2 (two) times a day for 7 days 14 capsule 01/22/2024 4 acetaminophen (TYLENOL) 500 mg tablet Take 1 [...] to 8 doses 8 tablet 08/10/2023 4 HYDROcodone-acetami nophen (NORCO) 5-325 mg per tabletIndications:P ain Take 1 tablet by mouth every 6 (six) hours as needed for pain 10 tablet 01/22/2024 4 ibuprofen (ADVIL,MOTRIN) 400 mg tablet Take [...] Take with food. 39 tablet 11/01/2023 4 pregabalin (LYRICA) 75 mg capsule Take 1 capsule (75 mg total) by mouth 2 (two) times a day 12/31/2023 4 sulfamethoxazole-tr imethoprim (BACTRIM DS) 800-160 mg per tabletIndications:U pper Respiratory/HEENT Infection Take 1 tablet by mouth as needed 01/20/2024 4 tamsulosin (FLOMAX) 0.4 mg extended release capsuleIndications: Urolithiasis Take 1 capsule (0.4 mg total) by mouth daily as needed (Kidney stones) 4 documented as of this encounter Ordered Prescriptions Prescription Sig Dispense Quantity Refills Last Filled Start Date End Date HYDROcodone-acetam inophen (NORCO) 5-325 mg per tabletIndications: Pain Take 1 tablet by mouth every 6 (six) hours as needed for pain 10 tablet 01/22/2024 4 acetaminophen-code ine (TYLENOL with CODEINE #3) 300-30 mg per tablet Take 1 tablet by mouth every 4 (four) hours as needed for pain 10 tablet 01/22/2024 4 cephalexin (KEFLEX) 500 mg capsule Take 1 capsule (500 mg total) by mouth 2 (two) times a day for 7 days 14 capsule 01/22/2024 4 documented in this encounter Discharge Disposition Disposition Code Departure Means Destination Comment s Discharge to home or self care documented in this encounter ED Notes * Brice Carmona PA - 01/22/2024 2:49 AM CDT Renee Luke [id number] History Chief Complaint Patient presents with Flank Pain Numbness 43 F presents with several days of left-sided flank pain. Associated darker colored urine. Patient reports a frequent history of kidney stones and suspects having another. Patient reports previous stent placement and scarring to her kidneys. Denies fever, dysuria, or hematuria. Past Medical History: Diagnosis Date GERD (gastroesophageal [...] Stroke Paternal Grandfather Obesity Sister Obesity Brother Review of Systems ROS Physical Exam Vitals: 01/22/24 0215 01/22/24 0230 01/22/24 0245 01/22/24 0440 BP: (!) 183/106 (!) 164/126 (!) 180/124 (!) 157/113 Pulse: 80 70 82 67 Resp: Temp: TempSrc: SpO2: 97% 98% 99% 95% Physical Exam Vitals and nursing note reviewed. Constitutional: General: She is not in acute distress. Appearance: She is well-developed. HENT: Head: Normocephalic and atraumatic. Eyes: Conjunctiva/sclera: Conjunctivae normal. Cardiovascular: Rate and Rhythm: Normal rate and regular rhythm. Heart sounds: No murmur heard. Pulmonary: Effort: Pulmonary effort is normal. No respiratory distress. Breath sounds: Normal breath sounds. Abdominal: Palpations: Abdomen is soft. Tenderness: There is no abdominal tenderness. There is left CVA tenderness. There is no right CVA tenderness or guarding. Negative signs include Palm's sign and McBurney's sign. Musculoskeletal: Cervical back: Neck supple. Skin: General: Skin is warm and dry. Neurological: Mental Status: She is alert. Procedures Procedures Results for orders placed or performed during the hospital encounter of 01/21/24 Urinalysis reflex to microscopic and culture Urine Specimen: Urine Result Value Ref Range Color, ur Yellow Yellow Clarity, ur Clear Clear Specific gravity, ur 1.021 1.003 - 1.030 pH, urine 6.0 Protein, ur ql Negative Negative Glucose, ur ql Negative Negative Ketones, ur Negative Negative Bilirubin, ur Negative Negative Blood, ur Negative Negative Urobilinogen, ur <2.0 <2.0 mg/dL Nitrite, ur Negative Negative Leukocyte esterase, ur 1+ (A) Negative UA reflex comment Reflex to microscopic UA will be performed. Comprehensive metabolic panel Result Value Ref Range Sodium 139 135 - 145 mmol/L Potassium, pl 3.6 3.3 - 4.9 mmol/L Chloride 103 97 - 110 mmol/L CO2 22 22 - 32 mmol/L Anion gap 14 2 - 15 mmol/L BUN 12 6 - 25 mg/dL Creatinine 0.66 0.60 - 1.10 mg/dL Glucose 87 70 - 199 mg/dL Calcium 9.6 8.5 - 10.3 mg/dL Bilirubin, total 0.3 0.1 - 1.2 mg/dL Protein, pl 7.1 6.5 - 8.5 g/dL Albumin 4.3 3.5 - 5.0 g/dL Alk phos 88 40 - 130 Units/L ALT 53 (H) 7 - 45 Units/L AST 37 10 - 45 Units/L CBC with auto differential Result Value Ref Range WBC 7.2 3.8 - 9.9 K/cumm Hgb 14.7 11.9 - 15.5 g/dL Hct 43.3 35.6 - 45.5 % Plt 249 150 - 400 K/cumm MPV 10.0 9.1 - 12.3 fL RBC 4.83 3.90 - 5.20 M/cumm MCV 89.6 81.3 - 96.4 fL MCH 30.4 27.1 - 33.3 pg MCHC 33.9 32.3 - 35.7 g/dL RDW CV 11.9 11.1 - 14.9 % RDW SD 38.6 35.7 - 48.1 fL NRBC abs 0.00 0.00 - 0.01 K/cumm Differential, auto Result Value Ref Range Neutrophil abs 3.8 1.5 - 6.5 K/cumm Imm gran abs 0.0 0.0 - 0.1 K/cumm Lymphocyte abs 2.6 0.8 - 3.3 K/cumm Monocyte abs 0.6 0.2 - 0.8 K/cumm Eosinophil abs 0.2 0.0 - 0.5 K/cumm Basophil abs 0.1 0.0 - 0.1 K/cumm Neutrophil pct 52.4 % Imm gran pct 0.1 % Lymphocyte pct 35.7 % Monocyte pct 8.0 % Eosinophil pct 3.1 % Basophil pct 0.7 % Urinalysis, microscopic only Result Value Ref Range WBC, ur 11-20 (A) 0 - 5 /HPF RBC, ur 3-5 (A) 0 - 2 /HPF Epithelial cells, squamous, ur 11-20 (A) 0 - 5 /HPF Mucous, ur Present (A) Calcium oxalate crystals, ur 1+ (A) Culture Reflex Comment Reflex to urine culture will be performed. eGFR Result Value Ref Range eGFR >90 >=60 mL/min/1.[address] Abdomen Pelvis WO Contrast ED Interpretation PROCEDURE INFORMATION: Exam: CT Abdomen And Pelvis Without Contrast Exam date and time: 01/22/2024 2:57 AM Age: 43 years old Clinical indication: Abdominal pain; Additional info: Flank pain, kidney stone suspected TECHNIQUE: Imaging protocol: Computed tomography of the abdomen and pelvis without contrast. COMPARISON: CT ABDOMEN PELVIS W CONTRAST 11/12/2023 12:48 AM FINDINGS: Liver: Enlarged liver with suggestion diffuse fatty infiltration. Gallbladder and bile ducts: Status post cholecystectomy. Pancreas: Unremarkable. No ductal dilation. Spleen: Unremarkable. No mass. Adrenal glands: Unremarkable. No mass. Kidneys and ureters: Unremarkable. No stone or hydronephrosis. Stomach and bowel: Colonic diverticulosis. No acute diverticulitis. No significant mucosal thickening. No bowel obstruction. Appendix: No evidence of appendicitis. Intraperitoneal space: No free air. No significant fluid collection. Vasculature: No abdominal aortic aneurysm. Lymph nodes: No enlarged lymph nodes. Urinary bladder: Unremarkable as visualized. Reproductive: Status post hysterectomy. Bones/joints: No acute fracture. No suspicious lesion. Soft tissues: No bowel containing hernia. IMPRESSION: 1. No renal stones or hydronephrosis. 2. Enlarged fatty liver. 3. Colonic diverticulosis. THIS DOCUMENT HAS BEEN ELECTRONICALLY SIGNED BY COLEMAN POWELL MD THIS DOCUMENT WAS READ BY A AD RADIOLOGIST, ANY QUESTIONS PLEASE CALL [phone] Medical Decision Making Amount and/or Complexity of Data Reviewed Radiology: ordered and independent interpretation performed. Risk Prescription drug management. Medical Decision Making Sources of Information Patient information was obtained via the patient I reviewed records in Care Everywhere from an external health system which showed procedures, test results and clinic visits. I reviewed nursing triage notes and vital signs. I performed a limited review of the electronic medical record, including allergies, past medical history, prior labs, imaging, and recent ED notes if applicable. This is a 43 y.o. female presenting to the ED with flank pain. Relevant PE findings: see above Differential diagnosis includes nephrolithiasis, UTI, pyelonephritis, musculoskeletal pain, other. Plan: Labs, CT, disposition pending Code status patient/POA: Full code Studies and Interpretation Vital Signs: BP (!) 157/113 Pulse 67 Temp 36.7 ??C (98 ??F) (Tympanic) Resp 18 SpO2 95% NL Lab: (pertinent labs reviewed), Significant for: CBC and CMP unremarkable. UA consistent with possible infection and calcium oxalate crystals present Conclusion and Disposition: 5:57 AM: CT is unremarkable. UA with calcium oxalate crystals present also with leukocytes and 11-20 WBCs. Possibly passed stone. Will provide outpatient antibiotics. Patient is otherwise afebrile and nontoxic in appearance. Pt is medically stable for discharge. I have given patient discharge instructions regarding their diagnosis and results. Patient has beeninformed to return to the ED with any worsening/persisting symptoms and to follow up with their PCPor their provided follow up provider. All questions answered. Critical Care (if any): located in the CC section of the chart Management Discussions, Medical Complexity, and Risk See applicable ED consultations above. Orders Placed This Encounter Procedures Urinalysis reflex to microscopic and culture Urine Urine culture CT Abdomen Pelvis WO Contrast Comprehensive metabolic panel CBC with auto differential Differential, auto Urinalysis, microscopic only eGFR Final Diagnosis: 1. Acute cystitis without hematuria 2. Flank pain Discharge Medication List as of 01/22/2024 4:21 AM START taking these medications Details cephalexin (KEFLEX) 500 mg capsule Take 1 capsule (500 mg total) by mouth 2 (two) times a day for 7days, Starting 01/22/2024, Until Sat01/29/2024, Print Lucas Carter, DO [address] [facility] [place] [id number] [facility] Emergency Department [address] [facility] [id number] Go today If symptoms worsen Disposition: Discharged This note was created with the aid of dictation software, please excuse any word substitutions or errors. Brice Carmona PA 01/22/24 0557 Cosigned by Bernabe Rose DO at 01/24/2024 7:00 AM CDT Associated attestation - Bernabe Rose DO - 01/24/2024 7:00 AM CDT ED Attestation Based on the medical record the care appears appropriate. * Evangelina Nugent, KHADAR - 01/21/2024 8:20 PM CDT Pt states she has had left flank pain x4 days. Hx of kidney stones. Pt states she was doing the dishes around 1600 when she had a pop at the base of her neck and since then she has been having numbness in both hands, unable to turn neck from side to side, unable to lift arms above head and seeing squiggles in her vision. Pt ambulatory to triage A&Ox4 documented in this encounter Plan of Treatment Not on file documented as of this encounter Procedures Procedure Name Priority Date/Time Associated Diagnosis Comments CT ABDOMEN PELVIS WO CONTRAST ED 01/22/2024 3:04 AM CDT EGFR STAT 01/21/2024 10:59 PM CDT DIFFERENTIAL AUTO STAT 01/21/2024 10: 59 PM CDT URINALYSIS AND REFLEX TO MICROSCOPIC AND CULTURE STAT 01/21/2024 10:59 PM CDT CBC WITH AUTO DIFFERENTIAL STAT 01/21/2024 10:59 PM CDT URINALYSIS, MICROSCOPIC ONLY STAT 01/21/2024 10:59 PM CDT URINE CULTURE STAT 01/21/2024 10:59 PM CDT COMPREHENSIVE METABOLIC PANEL STAT 01/21/2024 10:59 PM CDT documented in this encounter Results * CT Abdomen Pelvis WO Contrast (01/22/2024 3:04 AM CDT) Anatomical Region Laterality Modality Body N/A Computed Tomogra phy 01/22/2024 2:57 AM CDT Impressions 01/22/2024 8:59 AM CDT 1. ?? No renal stones or hydronephrosis. 2. ?? Enlarged fatty liver. 3. ?? Colonic diverticulosis. Electronically signed by: Kevan Jones M.D. Narrative 01/22/2024 8:59 AM CDT EXAMINATION: CT ABDOMEN PELVIS WO CONTRAST DATE: 01/22/2024 3:00 AM CLINICAL HISTORY: Flank pain, kidney stone suspected TECHNIQUE: Axial CT imaging of the abdomen and pelvis performed without oral or intravenous contrast. ??2-D Reformatted images are obtained. Evaluation of solid [...] No bowel obstruction. Appendix: No evidence of appendicitis. Intraperitoneal space: No free air. No significant fluid collection. Vasculature: No abdominal aortic aneurysm. Lymph nodes: No enlarged lymph nodes. Urinary bladder: Unremarkable as visualized. Reproductive: Status post hysterectomy. Bones/joints: No acute fracture. No suspicious lesion. ?? Soft tissues: No bowel containing hernia. ?? Procedure Note Kevan Jones MD - 01/22/2024 EXAMINATION: CT ABDOMEN PELVIS WO CONTRAST DATE: [...] No bowel obstruction. Appendix: No evidence of appendicitis. Intraperitoneal space: No free air. No significant fluid collection. Vasculature: No abdominal aortic aneurysm. Lymph nodes: No enlarged lymph nodes. Urinary bladder: Unremarkable as visualized. Reproductive: Status post hysterectomy. Bones/joints: No acute fracture. No suspicious lesion. Soft tissues: No bowel containing hernia. IMPRESSION: 1. No renal stones or hydronephrosis. 2. Enlarged fatty liver. 3. Colonic diverticulosis. Electronically signed by: Kevan Jones M.D. [facility] PROCEDURES Fin al Result * eGFR (01/21/2024 10:59 PM CDT) eGFR >90 >=60 mL/min/1. 73 [...] of Race in Diagnosing Kidney Disease, JASN 202). The CKD-EPI equation should not be used for patients with unstable renal function and has not been validated in children and those over 70. Current interpretive data was last reviewed 2021. Blood 01/21/2024 10:5 9 PM CDT 01/21/2024 11:04 PM CDT us Chey Vidales MD LAB BLOOD ORDERABLES F inal Result [facility] [place]LL [address] Department [place] [address] * Urine culture Urine (01/21/2024 10:59 PM CDT) Report Final Report: Less than 100,000 colonies/mL (clinically insignificant growth based on current clinical standards) Comment:Testing performed by : [facility], [address] [place]., [address] Organism (CLINICALLY INSIGNIFICANT GROWTH [facility] Urine 01/21/2024 10:5 9 PM CDT 01/22/2024 7:43 AM CDT Narrative [facility] - 01/23/2024 5:46 PM CDT Urine culture reflexed based upon urinalysis results. Testing performed by [facility] ([phone]) us Chey Vidales MD LAB MICROBIOLOGY - GEN ERAL ORDERABLES Final Result [facility] [place]LL [address] Department [place] [address] * (ABNORMAL) Urinalysis, microscopic only (01/21/2024 10:59 PM CDT) WBC, ur 11-20(A) 0 - 5 /HPF RBC, ur 3-5(A) 0 - 2 /HPF [facility] Epithelial cells, squamous, ur 11-20(A) 0 - 5 /HPF [facility] Comment:Suggestive of contam ination. Consider recollection by clean catch. Mucous, ur Present(A) [facility] Calcium oxalate crystals, ur 1+(A) [facility] Reflex Comment Reflex to urine culture will be performed. [facility] Urine 01/21/2024 10:5 9 PM CDT 01/21/2024 11:02 PM CDT us Chey Vidales MD LAB URINE ORDERABLES F inal Result [facility] [address] Department [place] [address] * Differential, auto (01/21/2024 10:59 PM CDT) Neutrophil abs 3.8 1.5 - 6.5 K/cumm Imm gran abs 0.0 0.0 - 0.1 K/cumm [facility] Lymphocyte abs 2.6 0.8 - 3.3 K/cumm [facility] Monocyte abs 0.6 0.2 - 0.8 K/cumm [facility] Eosinophil abs 0.2 0.0 - 0.5 K/cumm [facility] Basophil abs 0.1 0.0 - 0.1 K/cumm [facility] Neutrophil pct 52.4 % [facility] Comment: Interpretive Data Percent cell count reference ranges are not reported, since discordance with absolute values may lead to misinterpretation of CBC data. Current Interpretive Data was last revised on 2017. Imm gran pct 0.1 % [facility] Comment: Interpretive Data Percent cell count reference ranges are not reported, since discordance with absolute values may lead to misinterpretation of CBC data. Current Interpretive Data was last revised on 2017. Lymphocyte pct 35.7 % [facility] Comment: Interpretive Data Percent cell count reference ranges are not reported, since discordance with absolute values may lead to misinterpretation of CBC data. Current Interpretive Data was last revised on 2017. Monocyte pct 8.0 % [facility] Comment: Interpretive Data Percent cell count reference ranges are not reported, since discordance with absolute values may lead to misinterpretation of CBC data. Current Interpretive Data was last revised on 2017. Eosinophil pct 3.1 % [facility] Comment: Interpretive Data Percent cell count reference ranges are not reported, since discordance with absolute values may lead to misinterpretation of CBC data. Current Interpretive Data was last revised on 2017. Basophil pct 0.7 % [facility] Comment: Interpretive Data Percent cell count reference ranges are not reported, since discordance with absolute values may lead to misinterpretation of CBC data. Current Interpretive Data was last revised on 2017. Blood 01/21/2024 10:5 9 PM CDT 01/21/2024 11:02 PM CDT Chey Vidales MD LAB BLOOD ORDERABLES F inal Result Performing Organization Address [facility] Co de Phone Number CHARLEEN [address] [place] [address] * (ABNORMAL) Urinalysis reflex to microscopic and culture Urine (01/21/2024 10:59 PM CDT) Color, ur Yellow Yellow Clarity, ur Clear Clear [facility] Specific gravity, ur 1.021 1.003 - 1.030 [facility] pH, urine 6.0 [facility] Comment: Interpretive Data ? Urine pH is affected by diet, medications, systemic acid-base disturbances, and renal tubular function. ??pH may affect urinary stone formation. ??For example, urine pH below 6.0 may help reduce the tendency for calcium phosphate stones and pH greater than 6.0 may reduce the tendency for uric acid stone formation. Source: [facility] Current Interpretive Data was last revised on 2017 Protein, ur ql Negative Negative [facility] Glucose, ur ql Negative Negative [facility] Ketones, ur Negative Negative [facility] Bilirubin, ur Negative Negative [facility] Blood, ur Negative Negative [facility] Urobilinogen, ur <2.0 <2.0 mg/dL [facility] Nitrite, ur Negative Negative [facility] Leukocyte esterase, ur 1+(A) Negative [facility] UA reflex comment Reflex to microscopic UA will be performed. [facility] Urine 01/21/2024 10:5 9 PM CDT 01/21/2024 11:01 PM CDT Chey Vidales MD LAB MICROBIOLOGY - GEN ERAL ORDERABLES Final Result Performing Organization Address [facility]/ZIP Co de Phone Number CHARLEEN [address] [place] [address] * CBC with auto differential (01/21/2024 10:59 PM CDT) Pathologist [facility] WBC 7.2 3.8 - 9.9 K/cumm Hgb 14.7 11.9 - 15.5 g/dL [facility] Hct 43.3 35.6 - 45.5 % [facility] Plt 249 150 - 400 K/cumm [facility] MPV 10.0 9.1 - 12.3 fL [facility] RBC 4.83 3.90 - 5.20 M/cumm [facility] MCV 89.6 81.3 - 96.4 fL [facility] MCH 30.4 27.1 - 33.3 pg [facility] MCHC 33.9 32.3 - 35.7 g/dL [facility] RDW CV 11.9 11.1 - 14.9 % [facility] RDW SD 38.6 35.7 - 48.1 fL [facility] NRBC abs 0.00 0.00 - 0.01 K/cumm [facility] Blood (Blood, Venous) 01/21/2024 10:59 PM CDT 01/21/2024 11:02 PM CDT Chey Vidales MD LAB BLOOD ORDERABLES F inal Result [facility] [address] Department [place] [address] * (ABNORMAL) Comprehensive metabolic panel (01/21/2024 10:59 PM CDT) Pathologist [facility] [place] Sodium 139 135 - 145 mmol/L Potassium, pl 3.6 3.3 - 4.9 mmol/L [facility] Chloride 103 97 - 110 mmol/L [facility] CO2 22 22 - 32 mmol/L [facility] Anion gap 14 2 - 15 mmol/L [facility] BUN 12 6 - 25 mg/dL [facility] Creatinine 0.66 0.60 - 1.10 mg/dL [facility] Glucose 87 70 - 199 mg/dL [facility] Comment: Interpretive Data Fasting glucose >/= 126 [...] interpretive data was last revised 2022. Calcium 9.6 8.5 - 10.3 mg/dL [facility] Bilirubin, total 0.3 0.1 - 1.2 mg/dL [facility] Protein, pl 7.1 6.5 - 8.5 g/dL [facility] Albumin 4.3 3.5 - 5.0 g/dL [facility] Alk phos 88 40 - 130 Units/L [facility] ALT 53(H) 7 - 45 Units/L [facility] AST 37 10 - 45 Units/L [facility] Blood 01/21/2024 10:5 9 PM CDT 01/21/2024 11:02 PM CDT us Chey Vidales MD LAB BLOOD ORDERABLES F inal Result CHAR[facility]EN [address] [place] [address] documented in this encounter Visit Diagnoses Diagnosis Acute cystitis without hematuria Flank pain Abdominal pain, unspecified site documented in this encounter Administered Medications Inactive Administered Medications - up to 3 most recent administrations Medication Order MAR Action Action Date Dose Rate Site morphine injection 4 mg 4 mg, intravenous, Administer over 4 Minutes, Every 2 hours PRN, 1st line for pain, Starting on Sat01/22/24 at 0246 Given 01/22/2024 2:51 AM CDT 4 mg ondansetron (ZOFRAN) injection 4 mg 4 mg, intravenous, Administer over 2 Minutes, Once, On Sat01/22/24 at 0207, For 1 dose, Indications: Nausea, VomitingIndications:Nausea, Vomiting Given 01/22/2024 2:26 AM CDT 4 mg sodium chloride 0.9% bolus 1,000 mL 1,000 mL, intravenous, at 1,000 mL/hr, Administer over 1 Hours, Once, On Sat01/22/24 at 0205, For 1 dose New Bag 01/22/2024 2:27 AM CDT 1,000 mL 100 0 mL/hr documented in this encounter Discontinued Medications Medication Sig Discontinue Reason Start Date End Da te acetaminophen-codeine (TYLENOL with CODEINE #3) 300-30 mg per tablet Take 1 tablet by mouth every 4 (four) hours as needed for pain Other 01/22/2024 01/22/2024 documented as of this encounter Active and Recently Administered Medications Times are shown in CDT. Scheduled Medication Order 01/20/2024 01/21/2024 01/22/2024 ondansetron (ZOFRAN) injection 4 mg (COMPLETED) 4 mg, intravenous, Administer over 2 Minutes, Once, On Sat01/22/24 at 0207, For 1 dose, Indications: Nausea, Vomiting 0226 (Given - Provid er: Thea Glass RN) sodium chloride 0.9% bolus 1,000 mL (COMPLETED) 1,000 mL, intravenous, at 1,000 mL/hr, Administer over 1 Hours, Once, On Sat01/22/24 at 0205, For 1 dose 0227 (New Bag - Prov ider: Thea Glass RN)0418 (Stopped - Provider: Thea Glass RN) PRN Medication Order 01/20/2024 01/21/2024 01/22/2024 morphine injection 4 mg 4 mg, intravenous, Administer over 4 Minutes, Every 2 hours PRN, 1st line for pain, Starting on Sat01/22/24 at 0246 0251 (Given - Provid er: Thea Glass RN) documented in this encounter Care Teams Venetian Blind Cleaner And Repairer Relationship Specialty Start Date End Date Lucas Carter DO PCP - General Internal Medicine 08/15/22 documented as of this encounter
--- OUTSIDE RECORDS SUMMARY | 2024-08-17 01:53 | XMS_ITS | Encounter Summary ---
Author Organization [facility] Address [address] [place] [address] Phone Care Team Providers Care Research Nurse Practitioner Name Role Phone Lucas Carter DO Primary Care Provider [phone]- [phone] Encounter Details Date Type Department Care Team (Late st Contact Info) Description 11/01/[address] [facility] Orthopaedic Surgery [address] [facility] [address] [place] [address] Annette Longoria MD [facility] 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 Take with food. 39 tablet 11/01/2023 01/29/2024 documented in this encounter Plan of Treatment Not on file documented as of this encounter Visit Diagnoses Not on filedocumented in this encounter Discontinued Medications Medication Sig Discontinue Reason Start Date End Da te methylPREDNISolone (MEDROL DOSEPACK) 4 mg Dosepack Use as directed by package instructions Alternate therapy 10/01/2023 11/01/2023 documented as of this encounter Care Teams Research Nurse Practitioner Relationship Specialty Start Date End Date Lucas Carter DO PCP - General Internal Medicine 08/15/22 documented as of this encounter
--- OUTSIDE RECORDS SUMMARY | 2024-08-17 01:53 | XMS_ITS | Encounter Summary ---
Author Organization [facility] Address [address] [place] [address] Care Team Providers Care Skilled Nursing Case Manager Name Role Phone Lucas Carter DO Primary Care Provider [phone]- [phone] Reason for Referral * Consultation (Routine) - Pending Review Specialty Diagnoses / Procedures Referred By Lluvia t Referred To Contact Pain Management Diagnoses Chronic bilateral low back pain without sciatica Chronic neck pain B[place] [address] [place] [address] Phone: tel: fax: [place] [address] [place] [address] Referral ID Status Reason Start Date Expiration Date Visits Requested Visits Authorized [id number] Pending Review Specialty Services Required 11/07/2023 12/06/2024 1 1 Question Answer Please select the performing region: [facility] [[id number]] # of visits: 1 Comments First available for Medication Management for neck, low back pain and hand numbness Reason for Visit * Reason Comments Initial Consult * Consultation (Routine) - Closed Specialty Diagnoses / Procedures Referred By Contac t Referred To Contact Pain Management Diagnoses Chronic pain syndrome Arthralgia, unspecified joint Polymyalgia rheumatica (CMS/HCC) (HCC) Lucas Carter, Phone: tel: fax: Juan Rodriguez MD PhD [address] [facility] [address] [facility] [id number] [place] [address] Phone: tel: fax: Referral ID Status Reason Start Date Expiration Date V isits Requested Visits Authorized [id number] Closed Specialty Services Required 08/17/2023 09/15/2024 1 1 Encounter Details Date Type Department Care Team (Latest Contact Info) Description 01/29/2024 8:15 AM CDT - 01/29/2024 11:59 PM CDT Hospital Encounter [facility] [address] [place] [address] Kevin Dunn MD [address] [facility] [place] [address] Chronic bilateral low back pain without sciatica; Chronic neck pain; Bilateral hand numbness Discharge Disposition: Discharge to home or self [...] on file 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 Gender Identity Female 10/01/2023 8:44 AM PRODUCE LABORER Sexual Orientation Straight 10/01/2023 8: 44 AM PRODUCE LABORER documented as of this encounter Last Filed Vital Signs Vital Sign Reading Time Taken Comments Blood Pressure 180/90 01/29/2024 8:22 AM CDT Pulse 83 01/29/2024 8:22 AM CDT Temperature 36.3 ??C (97.3 ??F) 01/29/2024 8:22 AM CD T Respiratory Rate 18 01/29/2024 8:22 AM CDT Oxygen Saturation 98% 01/29/2024 8:22 AM CDT Inhaled Oxygen Concentration - - Weight 81.6 kg (180 lb) 01/29/2024 8:22 AM CDT Height - - Body Mass Index 31.89 11/11/2023 9:51 PM CDT documented in this encounter Discharge Instructions * Patient Instructions* Sheila Grace RN - 01/29/2024 8:15 AM CDT [facility] DISCHARGE INSTRUCTIONS [phone] (Saturday-Saturday 7:30 am - 4:00 pm) PLAN: Lyrica 150 mg 2 x a day. Flexeril 10 mg 3 x a day as needed. FOLLOW UP: 8 weeks The [facility] Management [facility] is committed [...] prior to the date of need. Call [phone] choose option #5 and leave the following [...] procedure, please call the Pain Management Center [phone] (Saturday-Saturday 7:30 am - 4:00 pm). Please [...] cannot be sent through Care Everywhere. * Pregabalin (By mouth) (Iranian) * Cyclobenzaprine (By mouth) (Iranian) documented in this encounter Medications at Time of Discharge cyclobenzaprine (FLEXERIL) 10 mg tablet Take 1 tablet (10 mg total) by mouth 3 (three) times a day as needed for muscle spasms 90 tablet 1 01/29/2024 hydroCHLOROthiazide (HYDRODIURIL) 25 mg tabletIndications:hy pertension Take 1 tablet (25 mg total) by mouth hydro plant technician 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 losartan (COZAAR) 50 mg tabletIndications:hy pertension Take 1 tablet (50 mg total) by mouth 2 (two) times a day MULTIVIT-MINERALS/FE RROUS FUM (MULTI VITAMIN ORAL)Indications:hea lth Take 1 tablet by mouth hydro plant technician 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 nebivoloL (BYSTOLIC) 10 mg tabletIndications:hy pertension Take 1 tablet (10 mg total) by mouth every other day 01/03/2024 omeprazole (PriLOSEC) 20 mg capsuleIndications:T reatment of Non-Bleeding Gastric Disorder Take 1 capsule (20 mg total) by mouth hydro plant technician 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 ondansetron ODT (ZOFRAN-ODT) 4 mg disintegrating tablet Take 1 tablet (4 mg total) by mouth every 8 (eight) hours as needed for nausea or vomiting 20 tablet 08/10/2023 pregabalin (LYRICA) 150 mg capsule Take 1 capsule (150 mg total) by mouth 2 (two) times a day 60 capsule 2 01/29/2024 4 HYDROcodone-acetamin ophen (NORCO) 5-325 mg per tabletIndications:Pa in Take 1 tablet by mouth every 6 (six) hours as needed for pain 10 tablet 01/22/2024 4 meloxicam (MOBIC) 15 mg tabletIndications:an ti-inflammatory Take 1 tablet (15 mg total) by mouth daily 30 tablet 09/13/2023 4 sulfamethoxazole-tri methoprim (BACTRIM DS) 800-160 mg per tabletIndications:Up per Respiratory/HEENT Infection Take 1 tablet by mouth as needed 01/20/2024 4 tamsulosin (FLOMAX) 0.4 mg extended release capsuleIndications:U rolithiasis Take 1 capsule (0.4 mg total) by mouth daily as needed (Kidney stones) 4 documented as of this encounter Ordered Prescriptions Prescription Sig Dispense Quantity Refills Last Filled Start Date End Date cyclobenzaprine (FLEXERIL) 10 mg tablet Take 1 tablet (10 mg total) by mouth 3 (three) times a day as needed for muscle spasms 90 tablet 1 01/29/2024 pregabalin (LYRICA) 150 mg capsule Take 1 capsule (150 mg total) by mouth 2 (two) times a day 60 capsule 2 01/29/2024 4 documented in this encounter Discharge Disposition Disposition Code Departure Means Destination Discharge to home or self care documented in this encounter Progress Notes * Kevin Dunn MD - 01/29/2024 8:15 AM CDT Patient Name: Renee Luke : 1980 Today's Date: 01/29/2024 PCP: Lucas Carter DO Referring: Catherine Teague MD Chief Complaint Patient presents with Initial Consult HPI: Ms. Renee Luke is a 43 y.o. female who was referred for consultation [...] limited range of motion turning her neck [id number] in addition to looking up. Patient reports [...] as more like sciatica. Finally, patient reports bfdxn-iqmowwb-qure-left symptoms consistent with carpal tunnel. She will be evaluated by ortho surgery for this. Patient reports previously being on Flexeril, hydrocodone, and gabapentin which he feels as though the combination of those medications essentially eliminated her pain--or at least that is what she reports today. Pain Assessment Pain Score: 7 Pain Location: Back (Cervical) Pain Radiating Towards: bilat shoulders Pain Descriptors: Aching, Burning, Sharp, Shooting, Radiating Pain Frequency: Constant/continuous Pain Onset: Ongoing Previous injections: Unknown cervical Prior pain medications: [...] root in the lateral recess without compression. Patient's Medications New Prescriptions No medications on file Previous Medications CEPHALEXIN (KEFLEX) 500 MG CAPSULE Take 1 capsule (500 mg total) by mouth 2 (two) times a day for 7days Authorizing Provider: Brice Carmona PA Notes: -- HYDROCHLOROTHIAZIDE (HYDRODIURIL) 25 MG TABLET Take 1 tablet (25 mg total) by mouth daily Authorizing Provider: Margarita Bunch MD Notes: -- HYDROCODONE-ACETAMINOPHEN (NORCO) 5-325 MG PER TABLET Take 1 tablet by mouth every 6 (six) hours asneeded for pain Authorizing Provider: Brice Carmona PA Notes: -- LOSARTAN (COZAAR) 50 MG TABLET Take 1 tablet (50 mg total) by mouth 2 (two) times a day Authorizing Provider: Margarita Bunch MD Notes: -- MELOXICAM (MOBIC) 15 MG TABLET Take 1 tablet (15 mg total) by mouth daily Authorizing Provider: Catherine Teague MD Notes: -- MULTIVIT-MINERALS/FERROUS FUM (MULTI VITAMIN [...] Authorizing Provider: Jamila Clements PA Notes: -- SULFAMETHOXAZOLE-TRIMETHOPRIM (BACTRIM DS) 800-160 MG PER TABLET Take 1 tablet by mouth every 12 (twelve) hours for 10 days Authorizing Provider: Margarita Bunch MD Notes: -- TAMSULOSIN (FLOMAX) 0.4 MG EXTENDED RELEASE CAPSULE Take 1 capsule (0.4 mg total) by mouth daily asneeded (Kidney stones) Authorizing Provider: Margarita Bunch MD Notes: -- Modified Medications Modified Medication Previous Medication CYCLOBENZAPRINE (FLEXERIL) 10 MG TABLET cyclobenzaprine (FLEXERIL) 10 mg tablet Take 1 tablet (10 mg total) by mouth 3 (three) times a day as needed for muscle spasms Take 10 mg by mouth nightly as needed for muscle spasms Authorizing Provider: Kevin Dunn MD Authorizing Provider: Margarita Bunch MD Notes: -- Notes: -- PREGABALIN (LYRICA) 150 MG CAPSULE pregabalin (LYRICA) 75 mg capsule Take 1 capsule (150 mg total) by mouth 2 (two) times a day Take 1 capsule (75 mg total) by mouth 2 (two) times a day Authorizing Provider: Kevin Dunn MD Authorizing Provider: Margarita Bunch MD Notes: -- Notes: -- Discontinued Medications ACETAMINOPHEN (TYLENOL) 500 MG TABLET Take 1 tablet (500 mg total) by mouth every 6 (six) hours as needed for pain, headaches or fever Authorizing Provider: Rebecca Hudson MD Notes: -- AMLODIPINE (NORVASC) 10 MG TABLET Take 1 tablet (10 mg total) by mouth daily Authorizing Provider: Maryann Lima MD Notes: -- DICYCLOMINE (BENTYL) 20 MG TABLET Take 1 tablet (20 mg total) by mouth every 6 (six) hours as needed (abdominal pain) Authorizing Provider: Rebecca Hudson MD Notes: -- FLUCONAZOLE (DIFLUCAN) 150 MG TABLET Take 1 tablet orally as directed. Authorizing Provider: Crow Rosa MD Notes: -- GABAPENTIN (NEURONTIN) 300 MG CAPSULE Take 1 capsule (300 mg total) by mouth 3 (three) times a day For post-herpetic neuralgia: Take 1 tablet on day 1, Then take 2 tablets on day 2, Then take 3 tablets on day 3 and every day after that as instructed by your doctor. Authorizing Provider: Laci Vo MD Notes: -- HYDRALAZINE (APRESOLINE) 25 MG TABLET Take 1 tablet (25 mg total) by mouth 3 (three) times a day Authorizing Provider: Maryann Lima MD Notes: -- HYDROCODONE-ACETAMINOPHEN (NORCO) 5-325 MG PER TABLET Take 1 tablet by mouth every 6 (six) hours asneeded for pain for up to 8 doses Authorizing Provider: Jamila Clements PA Notes: -- IBUPROFEN (ADVIL,MOTRIN) 400 MG TABLET Take 1 tablet (400 mg total) by mouth every 6 (six) hours asneeded for pain Authorizing Provider: Rebecca Hudson MD Notes: -- OXYCODONE (ROXICODONE) 5 MG IMMEDIATE RELEASE TABLET Take 1 tablet (5 mg total) by mouth every 6 (six) hours as needed (severe pain) Authorizing Provider: Rebecca Hudson MD Notes: -- PREDNISONE (DELTASONE) 10 MG TABLET 3 tabs bid x 3 days, 2 tabs bid x 3 days, 1 tab bid x 3 days, 1tab every day then stop. Take with food. Authorizing Provider: Annette Longoria MD Notes: -- Allergies Allergen Reactions Ketorolac [...] packs/day: 0.50 Average packs/day: 0.5 packs/day for 32.2 years (16.1 ttl pk-yrs) Types: Cigarettes Start date: 11/11/1991 Smokeless tobacco: Never Substance and Sexual Activity Drug use: No Sexual activity: Yes Partners: Male control/protection: Surgical Comment: hysterectomy Alcohol Use: Not on file Review of Systems: ROS Lab Results Component Value Date WBC 7.2 01/21/2024 HGB 14.7 01/21/2024 HCT 43.3 01/21/2024 MCV 89.6 01/21/2024 LABPLAT 249 01/21/2024 Most Recent : Vitals BP (!) 180/90 Pulse 83 Temp 97.3 ??F (36.3 ??C) (Transdermal) Resp 18 Wt 81.6 kg (180 lb) SpO2 98% BMI 31.89 kg/m?? Physical Exam: General: No [...] Results Component Value Date CREATININE 0.66 01/21/2024 X-ray cervical spine complete 4 or 5 vw 09/10/2023 CT Abdomen Pelvis WO Contrast Result Date: [...] Electronically signed by: Kevan Jones M.D. ASSESSMENTS: Encounter Diagnoses Name Primary? Chronic bilateral low back pain without sciatica Chronic neck pain Bilateral hand numbness The above note documents my personal evaluation of this patient. In addition, I have reviewed and confirmed with the patient and nurse the supportive information documented in today's scanned PatientHealth Questionnaire and Office Note. PLAN: Following treatment recommendations were discussed in detail with patient. Analgesics: Flexeril 10 mg t.i.d.. Increase Lyrica to 150 mg b.i.d. Interventions: Defer at this time. Could consider cervical epidural steroid injections in the future given previous benefit PT and Pain Psychology: Encourage HEP Images and Labs: Reviewed Referrals including surgery, neurology, rheumatology and other specialty referrals: None Other modalities (including implants) None Follow ups: 8 weeks Kevin Dunn MD Attending Physician, Pain Management [facility] documented in this encounter Plan of Treatment Scheduled Referrals Name Type Priority Associated Diagnoses Order Schedule Ambulatory referral to Pain Management Outpatient Referral Routine Chronic bilateral low back pain without sciatica Chronic neck pain Bilateral hand numbness Once for 1 Occurrences starting 01/29/2024 until 01/29/2024 documented as of this encounter Goals Goal [...] Diagnosis Chronic bilateral low back pain without sciatica Chronic neck pain Cervicalgia Bilateral hand numbness Disturbance of skin sensation documented in this encounter Discontinued Medications Medication Sig Discontinue Reason Start Date End Da te acetaminophen (TYLENOL) 500 mg tablet Take 1 tablet (500 mg total) by mouth every 6 (six) hours as needed for pain, headaches or fever Therapy completed 08/23/2023 01/29/2024 amLODIPine (NORVASC) 10 mg tablet Take 1 tablet (10 mg total) by mouth daily Therapy completed 08/19/2022 01/29/2024 dicyclomine (BENTYL) 20 mg tablet Take 1 tablet (20 mg total) by mouth every 6 (six) hours as needed (abdominal pain) Therapy completed 08/23/2023 01/29/2024 fluconazole (DIFLUCAN) 150 mg tablet Take 1 tablet orally as directed. Therapy completed 11/07/2022 01/29/2024 gabapentin (NEURONTIN) 300 mg capsule Take 1 capsule (300 mg total) by mouth 3 (three) times a day For post-herpetic neuralgia: Take 1 tablet on day 1, Then take 2 tablets on day 2, Then take 3 tablets on day 3 and every day after that as instructed by your doctor. Therapy completed 06/26/2022 01/29/2024 hydrALAZINE (APRESOLINE) 25 mg tabletIndications:hype rtension Take 1 tablet (25 mg total) by mouth 3 (three) times a day Therapy completed 08/18/2022 01/29/2024 HYDROcodone-acetaminop hen (NORCO) 5-325 mg per tabletIndications:Pain Take 1 tablet by mouth every 6 (six) hours as needed for pain for up to 8 doses Therapy completed 08/10/2023 01/29/2024 ibuprofen (ADVIL,MOTRIN) 400 mg tablet Take 1 tablet (400 mg total) by mouth every 6 (six) hours as needed for pain Therapy completed 08/23/2023 01/29/2024 oxyCODONE (ROXICODONE) 5 mg immediate release tabletIndications:Pain Take 1 tablet (5 mg total) by mouth every 6 (six) hours as needed (severe pain) Therapy completed 08/23/2023 01/29/2024 predniSONE (DELTASONE) 10 mg tablet 3 tabs bid x 3 days, 2 tabs bid x 3 days, 1 tab bid x 3 days, 1 tab every day then stop. Take with food. Therapy completed 11/01/2023 01/29/2024 cyclobenzaprine (FLEXERIL) 10 mg tablet Take 10 mg by mouth nightly as needed for muscle spasms Reorder 01/29/2024 pregabalin (LYRICA) 75 mg capsule Take 1 capsule (75 mg total) by mouth 2 (two) times a day Reorder 12/31/2023 01/29/2024 documented as of this encounter Historical Medications * This list may reflect changes made after this encounter. nebivoloL (BYSTOLIC) 10 mg tabletIndications :hypertension Take 1 tablet (10 mg total) by mouth every other day 01/03/2024 sulfamethoxazole- trimethoprim (BACTRIM DS) 800-160 mg per tabletIndications :Upper Respiratory/HEENT Infection Take 1 tablet by mouth as needed 01/20/2024 04/20/2024 pregabalin (LYRICA) 75 mg capsule Take 1 capsule (75 mg total) by mouth 2 (two) times a day 12/31/2023 01/29/2024 added in this encounter Care Teams Skilled Nursing Case Manager Relationship Specialty Start Date End Date Lucas Carter DO PCP - General Internal Medicine 08/15/22 documented as of this encounter
--- OUTSIDE RECORDS SUMMARY | 2024-08-17 01:53 | XMS_ITS | Encounter Summary ---
Author Organization [facility] Address [address] [place] [address] Phone Care Team Providers Care Paint Spray Tender Name Role Phone Lucas Carter DO Primary Care Provider [phone]- [phone] Reason for Referral * Consultation (Routine) - Pending Review Specialty Diagnoses / Procedures Referred By Lluvia webb Referred To Contact Orthopedic Surgery Diagnoses [place] [address] [place] [address] Phone: tel: fax: Pooja Francisco MD [address] [facility] [address] [place] [address] Phone: tel: fax: Referral ID Status Reason Start Date Expiration Date Visits Requested Visits Authorized [id number] Pending Review Specialty Services Required 12/31/2023 01/29/2025 1 1 Question Answer Please select the performing region: [facility] (All Locations) [[id number]] To provider: POOJA FRANCISCO [[id number]] # of visits: 1 Comments Eval for CTS (R) Encounter Details Date Type Department Care Team (Late st Contact Info) Description 12/31/2023 Orders Only [facility] Orthopaedic Surgery [address] [facility] [address] [place] [address] [place] [address] [place] [address] Bilateral hand numbness (Primary Dx) Social History Tobacco Use Types [...] on file 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 Gender Identity Female 10/01/2023 8:44 AM LEATHER WORKER Sexual Orientation Straight 10/01/2023 8: 44 AM LEATHER WORKER documented as of this encounter Plan of Treatment Scheduled Referrals Name Type Priority Associated Diagnoses Order Schedule Ambulatory referral to Orthopedic Hand Outpatient Referral Routine Bilateral hand numbness Expected: 01/14/2024 (Approximate), Expires: 12/30/2024 documented as of this encounter Visit Diagnoses Diagnosis Bilateral hand numbness- Primary Disturbance of skin sensation documented in this encounter Care Teams Paint Spray Tender Relationship Specialty Start Date End Date Lucas Carter DO PCP - General Internal Medicine 08/15/22 documented as of this encounter
--- OUTSIDE RECORDS SUMMARY | 2024-08-17 01:53 | XMS_ITS | Encounter Summary ---
Author Organization [facility] Address [address] [place] [address] Phone Care Team Providers Care Care Management Specialist Name Role Phone Lucas Carter DO Primary Care Provider [phone]- [phone] Reason for Referral * Consultation (Routine) - Pending Review Specialty Diagnoses / Procedures Referred By Lluvia webb Referred To Contact Orthopedic Surgery Diagnoses Chronic neck pain Bilateral hand numbness Thoracic stenosis Spinal stenosis [place] [address] [place] [address] Phone: tel: fax: [facility] [address] [facility] [address] [place] [address] Phone: tel: fax: Referral ID Status Reason Start Date Expiration Date Visits Requested Visits Authorized [id number] Pending Review Specialty Services Required 11/11/2023 12/10/2024 1 1 Question Answer Please select the performing region: [facility] (All Locations) [[id number]] # of visits: 1 Comments Juani Cervical and Thoracic Stenosis Encounter Details Date Type Department Care Team (Late st Contact Info) Description 11/11/2023 Orders Only [facility] Orthopaedic Surgery [address] [facility] [address] [place] [address] [place] [address] [place] [address] Chronic neck pain (Primary Dx); Bilateral hand numbness; Thoracic stenosis; Spinal stenosis in cervical region Social History Tobacco Use Types Packs/Day Years [...] on file 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 Gender Identity Female 10/01/2023 8:44 AM CUSTOMER LOGISTICS MANAGER Sexual Orientation Straight 10/01/2023 8: 44 AM CUSTOMER LOGISTICS MANAGER documented as of this encounter Plan of Treatment Scheduled Referrals Name Type Priority Associated Diagnoses Order Schedule Ambulatory referral to Orthopedic Spine Outpatient Referral Routine Chronic neck pain Bilateral hand numbness Thoracic stenosis Spinal stenosis in cervical region Expected: 11/25/2023 (Approximate), Expires: 11/10/2024 documented as of this encounter Visit Diagnoses Diagnosis Chronic neck pain- Primary Cervicalgia Bilateral hand numbness Disturbance of skin sensation Thoracic stenosis Spinal stenosis of thoracic region Spinal stenosis in cervical region documented in this encounter Care Teams Care Management Specialist Relationship Specialty Start Date End Date Lucas Carter DO PCP - General Internal Medicine 08/15/22 documented as of this encounter
--- OUTSIDE RECORDS SUMMARY | 2024-08-17 01:54 | XMS_ITS | Encounter Summary ---
Author Organization [facility] Healthcare Address [address] [place] [address] Care Team Providers Care Tool Hardener Name Role Phone Lucas Carter DO Primary Care Provider [phone] Reason for Visit * Reason Comments Flank Pain * Auth/Cert Specialty Diagnoses / Procedures Referred By Contac t Referred To Contact Diagnoses Pyelonephritis Procedures NA Referral ID Status Reason Start Date Expiration Date Visits Re quested Visits Authorized [id number] 1 1 Encounter Details Date Type Department Care Team (Latest Contact Info) Description 08/15/2022 9:54 AM ROBOTIC MAINTENANCE TECHNICIAN - 08/18/2022 2:03 PM ROBOTIC MAINTENANCE TECHNICIAN Hospital Encounter [address] [id number] Juliette Thomas MD [address] [place] [id number] Maryann Lima MD [address] [place] [phone] Pyelonephritis (Primary Dx) Discharge Disposition: Discharge to home or self care Social History Tobacco Use Types Packs/Day Years Used Date Smoking Tobacco: Every Day Cigarettes Smokeless Tobacco: Never Alcohol Use Standard Drinks/Week Comments No 0 (1 standard drink = 0.6 oz pur e alcohol) Comments No Sex and Gender Information Value Date Recorded Sex Assigned at Not on file Legal Sex Female 9:06 PM ROBOTIC MAINTENANCE TECHNICIAN Gender Identity Female 10/01/2023 8:44 AM ROBOTIC MAINTENANCE TECHNICIAN Sexual Orientation Straight 10/01/2023 8: 44 AM ROBOTIC MAINTENANCE TECHNICIAN documented as of this encounter Last Filed Vital Signs Vital Sign Reading Time Taken Comments Blood Pressure 131/75 08/18/2022 10:54 AM ROBOTIC MAINTENANCE TECHNICIAN Pulse 88 08/18/2022 10:54 AM ROBOTIC MAINTENANCE TECHNICIAN Temperature 36.9 ??C (98.5 ??F) 08/18/2022 10:[address] Respiratory Rate 16 08/18/2022 10:54 AM ROBOTIC MAINTENANCE TECHNICIAN Oxygen Saturation 95% 08/18/2022 10:54 AM ROBOTIC MAINTENANCE TECHNICIAN Inhaled Oxygen Concentration - - Weight 77.6 kg (171 lb) 08/15/2022 5:15 PM ROBOTIC MAINTENANCE TECHNICIAN Height 160 cm (5' 3 ) 08/15/2022 5:15 PM ROBOTIC MAINTENANCE TECHNICIAN Body Mass Index 30.29 08/15/2022 5:15 PM ROBOTIC MAINTENANCE TECHNICIAN documented in this encounter Discharge Summaries * Maryann Lima MD - 08/18/2022 10:21 AM CST Inpatient Discharge Summary Patient Name - Renee Marsh Patient Age - 42 yrs Patient - [id number] [facility] - [id number] Document Creation Date: 08/18/2022 Admitting Provider, MD: Juliette Thomas MD Discharge Provider, MD: Maryann Lima MD Primary Care Physician at Discharge: Lucas Carter DO [phone] Admission Date: 08/15/2022 Discharge Date/time: 08/18/2022 Admission Location: [facility] LOS - LOS: 3 days DETAILS OF HOSPITAL STAY Hospital Problems/Diagnoses Principal Problem: Pyelonephritis Active Problems: Acute right flank pain Hypertensive urgency Reason for Hospitalization: Acute pyelonephritis Acute right flank pain Asymptomatic hypertensive urgency Tobacco dependence Hospital Course: This is 42-year-old female with past medical history of kidney stones who presented to emergency room with complaint of right flank pain and was found to have punctate stone with no hydronephrosis but right-sided pyelonephritis. Patient admitted initial assessment of acute pyelonephritis. Was started on IV fluids, IV antibiotic, urine as well as blood cultures were obtained. Blood pressure was elevated at time of presentation to ED likely due to pain and underlying historyof hypertension. Patient was started on amlodipine and p.o. hydralazine while inpatient for elevated blood pressure. Patient remains hemodynamically stable Remains afebrile Leukocytosis resolved Blood cultures are negative Urine culture is growing E coli which is sensitive to Rocephin and cefdinir. Electrolytes are within acceptable range. Flank pain has resolved. Patient is hemodynamically stable for discharge. She will be discharged home on oral antibiotics. Patient is requested to make a follow-up appointment with her urologist as soon as possible upon discharge from hospital. Patient verbalized understanding of given instructions. Discharge Details Physical Exam at Discharge: Discharge Condition: stable Pulse: 81 Resp: 16 BP: 158/99 Temp: 36.6 ??C (97.8 ??F) Weight: 77.6 kg (171 lb) Pertinent Exam Findings at Discharge: No acute distress Resting comfortably in bed Does not appear to be in pain Ear nose throat: Normal Mucosa is moist Neck supple Cardiovascular S2 Chest: Clear to auscultation bilaterally, bowel sounds present, minimal right flank tenderness Neuro: No focal deficit Psych: Alert and oriented x3 Discharge Disposition: Discharge to home or self long-term Code Status at Discharge: Full Code Active Issues & Recommended Plan for Follow-up: urologist Allergies: Ketorolac and Tramadol Discharge Medications: Your medication list START taking these medications Instructions Last Dose Given Next Dose Due amLODIPine 10 mg tablet Commonly known as: NORVASC Start taking on: August 19, 2022 10 mg, oral, Daily cefdinir 300 mg capsule Commonly known as: OMNICEF 300 mg, oral, 2 times daily hydrALAZINE 25 mg tablet Commonly known as: APRESOLINE 25 mg, oral, 3 times daily HYDROcodone-acetaminophen 5-325 mg per tablet Commonly known as: NORCO 1 tablet, oral, Every 8 hours PRN CONTINUE taking these medications Instructions Last Dose Given Next Dose Due cyclobenzaprine 10 mg tablet Commonly known as: FLEXERIL 10 mg, oral, Nightly PRN MULTI VITAMIN ORAL 1 tablet, oral, Daily omeprazole 20 mg capsule Commonly known as: PriLOSEC 20 mg, oral, Daily ondansetron ODT 4 mg disintegrating tablet Commonly known as: ZOFRAN-ODT 4 mg, oral, Every 8 hours PRN tamsulosin 0.4 mg extended release capsule Commonly known as: FLOMAX 0.4 mg, oral, Daily PRN ASK your doctor about these medications Instructions Last Dose Given Next Dose Due gabapentin 300 mg capsule Commonly known as: NEURONTIN 300 mg, oral, 3 times daily, For post-herpetic neuralgia: Take 1 tablet on day 1, Then take 2 tablets on day 2, Then take 3 tablets on day 3 and every day after that as instructed by your doctor. Where to Get Your Medications These medications were sent to [id number] - [place], [place] - [address], [facility] [id number] amLODIPine 10 mg tablet cefdinir 300 mg capsule hydrALAZINE 25 mg tablet HYDROcodone-acetaminophen 5-325 mg per tablet Time Spent in Discharge Process: I have spent 35 minutes on discharge planning activities. Test Results Pending at Discharge (If Blank, None Found): Pending Labs Order Current Status Blood culture Blood Preliminary result Blood culture Blood Antecubital, right Preliminary result Operative Procedures Performed (If Blank, None Found): Outpatient Follow-Up: Contact Information for Follow-ups Urologist Next Steps: Schedule an appointment as soon as possible for a visit Instructions: Please make an appointment to follow-up with urologist as soon as possible upon discharge from hospital. Please schedule an appointment with the following provider(s): Urologist Schedule an appointment as soon as possible for a visit Please make an appointment to follow-up with urologist as soon as possible upon discharge from hospital. ANCILLARY INFORMATION Other Procedures & Diagnostic Tests: CT Abdomen Pelvis WO Contrast Result Date: 08/15/2022 EXAM DESCRIPTION: CT ABDOMEN PELVIS WO CONTRAST REASON FOR STUDY: Flank pain, kidney stone suspected Pt states onset of R sided flank pain yesterday. Pt states hx of stents due to stones. Surg hx: , hysterectomy TECHNIQUE: CT scan of the abdomen and pelvis performed without intravenous andwithout oral contrast using helical scanning technique. Reconstructed coronal and sagittal MPR images reviewed. All images stored on PACS. Automated exposure control was used as a dose optimization technique for this examination. COMPARISON: 06/25/2022 FINDINGS: The sensitivity for detection of visceral lesions is diminished without the use of intravenous contrast. LOWER CHEST: No significant pulmonary abnormalities. No effusion. LIVER: The liver is normal in size. There is likely hepatic steatosis. No definite liver lesion is seen. GALLBLADDER: Gallbladder is partially distended. Sludge or cholelithiasis. No wall thickening, stranding or pericholecystic fluid to suggest acute cholecystitis. BILE DUCTS: No gross biliary ductal dilatation. SPLEEN: Spleen is normal in size. PANCREAS: Pancreas is normal in size. No significant peripancreatic stranding or main ductal dilatation. ADRENALS: Normal. KIDNEYS/URINARY TRACT: The kidneys are normal in size mild right perinephric and periureteralstranding. There is no associated right hydronephrosis. There are possible punctate stones within the distal right ureter (122). No right renal stone is seen. No left hydronephrosis or nephrolithiasis. The urinary bladder is partially distended without substantial thickening or stranding. GI: Scattered colonic diverticula without CT evidence of diverticulitis. Appendix is nondilated. The small bowel is nondilated minimal. Borderline thickening of loops of jejunum within the left upper quadrant,likely due to under distension. No evidence of bowel obstruction. PERITONEUM: No free air. No ascites. No mesenteric lymphadenopathy. RETROPERITONEUM: No retroperitoneal or inguinal lymphadenopathy is seen. REPRODUCTIVE: Uterus is absent. Grossly stable 3 cm left ovarian cyst. VASCULATURE: Aorta isnormal caliber. MUSCULOSKELETAL: Bone windows demonstrate no suspicious lytic or sclerotic lesion. No acute fracture seen. OTHER: No other abnormality. IMPRESSION: 1. Mild right perinephric/periureteral stranding. This is evidence for inflammation which may be due to possible punctate stones within the distal right ureter or pyelonephritis. Recommend correlation with urinalysis. No right hydronephrosis. REFERENCE: Unless otherwise specified, no follow-up imaging is recommended for incidental renal and adrenal lesions per consensus recommendations based on imaging criteria. Further lab evaluation could be pursued based on clinical findings. Management of the Incidental Renal Mass on CT: A White Paper of the ACR Incidental Findings Committee. J Am Haris Radiol. 2018 Sep;15(2):264-273. Management of Incidental Adrenal Masses: A White Paper of the ACR Incidental Findings Committee. J Am CollRadiol. 2017 Mar;14(8):5462-7024. THIS IS AN ELECTRONICALLY VERIFIED FINAL REPORT 08/15/2022 11:43 AM- Electronically signed by Laci Alonso M.D. AG T: Report ID: [id number] Reading Location: [id number] Recent Labs: Recent Labs Lab Units 08/18/22 0739 08/17/22 0650 08/16/22 0746 WBC K/cumm 7.6 9.9 10.0* HEMOGLOBIN g/dL 13.8 14.4 12.9 HEMATOCRIT % 40.0 41.4 37.4 PLATELETS K/cumm 256 227 218 Recent Labs Lab Units 08/18/22 0739 08/17/22 0650 08/16/22 0746 WBC K/cumm 7.6 9.9 10.0* HEMOGLOBIN g/dL 13.8 14.4 12.9 HEMATOCRIT % 40.0 41.4 37.4 PLATELETS K/cumm 256 227 218 NEUTROS PCT % 64.5 81.3 70.0 LYMPHS PCT % 25.4 12.7 19.9 MONOS PCT % 8.3 5.0 8.8 EOS PCT % 1.2 0.3 0.7 Recent Labs Lab Units 08/18/2239 08/17/22 0650 08/16/22 0746 SODIUM mmol/L 138 137 134* POTASSIUM PLASMA mmol/L 3.6 4.3 3.2* CHLORIDE mmol/L 104 104 103 CO2 mmol/L 26 24 25 BUN SERUM mg/dL 7* 6* 11 CREATININE mg/dL 0.60 0.50* 0.60 GGP-[id number]-GBLGOGL mL/min/1.73 m2 114 119 114 GLUCOSE mg/dL 93 122 94 CALCIUM mg/dL 9.5 9.3 8.7 ALBUMIN g/dL 4.0 4.1 3.6 Recent Labs Lab Units 08/18/22 0739 08/17/22 0650 08/16/22 0746 SODIUM mmol/L 138 137 134* POTASSIUM PLASMA mmol/L 3.6 4.3 3.2* CHLORIDE mmol/L 104 104 103 CO2 mmol/L 26 24 25 ANIONGAP mmol/L 8 9 6 GLUCOSE mg/dL 93 122 94 BUN SERUM mg/dL 7* 6* 11 CREATININE mg/dL 0.60 0.50* 0.60 CALCIUM mg/dL 9.5 9.3 8.7 ALBUMIN g/dL 4.0 4.1 3.6 ALK PHOS Units/L 86 88 111 ALT Units/L 23 22 16 AST Units/L 21 21 14 BILIRUBIN TOTAL mg/dL 0.5 0.3 0.4 Recent Labs Lab Units 08/18/22 0739 08/17/22 0650 08/16/22 0746 ALK PHOS Units/L 86 88 111 BILIRUBIN TOTAL mg/dL 0.5 0.3 0.4 TOTAL PROTEIN g/dL 6.9 7.0 6.2* ALT Units/L 23 22 16 AST Units/L 21 21 14 Recent Labs Lab Units 08/18/22 0739 08/17/22 0650 08/16/22 0746 MAGNESIUM mg/dL 2.1 2.2 2.0 Lab Results Component Value Date GLUCOSE 93 08/18/2022 GLUCOSE 122 08/17/2022 GLUCOSE 94 08/16/2022 Implant: Implants No active implants to display in this view. General Precautions (If Blank, None Found): Isolation Status: No active isolations Nutritional Status and in-house recommendations: Dietary Orders (From admission, onward) Start Ordered 08/18/22 08 Diet message Once (Routine) Comments: Please send tray now 08/18/22 0826 08/15/22 1720 Diet message Once (Routine) Comments: Send dinner tray please 08/15/22 1719 08/15/22 1612 Adult Diet Regular Diet effective now Question: (MHB/MHE/SKILLED NURSING) Diet type Answer: Regular 08/15/22 1611 Anticoagulation Indication: INR: No results found for requested labs within last 720 hours. Warfarin Administrations (last 168 hours) None Oxygen Status: O2 Therapy for the past 12 hrs: O2 Therapy 08/18/22 0704 None (Room air) Wound Care Instructions Active LDAs (If Blank, None Found): Peripheral IV 08/15/22 18 G Left Antecubital (Active) Placement Date: 08/15/22 Type: Angiocath Size (Gauge): 18 G Location Orientation: Left Location: Antecubital Technique: Anatomical landmarks Inserted by: Janiya RUBALCAVA Insertion attempts: 1 Patient Emergency Contact: Primary Emergency Contact: MANSI MARSH Immunization Status at Discharge Immunization History Administered Date(s) Administered Influenza, Trivalent, Preservative Free, Intramuscular 05/12/2015 Maryann Lima MD TIC MAINTENANCE TECHNICIAN documented in this encounter Discharge Instructions * Appointments* Sandra Kimble RN - 08/18/2022 12:10 PM ROBOTIC MAINTENANCE TECHNICIAN See primary care Dr in 1 week Continue to hydrate self, strain urine for stones See urologist within 2 weeks Return to hospital if bloody urine or inability to pass urine TIC MAINTENANCE TECHNICIAN * Attachments The following attachments cannot be sent through Care Everywhere. * Kidney Infection (AfterCare(R) Instructions(ER/ED)) (Botswanan) * Kidney Stones (Head Pumper) (Botswanan) documented in this encounter Medications at Time of Discharge MULTIVIT-MINERALS/F ERROUS FUM (MULTI VITAMIN ORAL)Indications:he alth Take 1 tablet by mouth care advocate 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 omeprazole (PriLOSEC) 20 mg capsuleIndications: Treatment of Non-Bleeding Gastric Disorder Take 1 capsule (20 mg total) by mouth care advocate 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 cefdinir (OMNICEF) 300 mg capsule Take 1 capsule (300 mg total) by mouth 2 (two) times a day for 7 days 14 capsule 08/18/2022 3 amLODIPine (NORVASC) 10 mg tablet Take 1 tablet (10 mg total) by mouth daily 30 tablet 08/19/2022 4 cyclobenzaprine (FLEXERIL) 10 mg tablet Take 10 mg by mouth nightly as needed for muscle spasms 4 gabapentin (NEURONTIN) 300 mg capsule Take [...] ain Take 1 tablet by mouth every 8 (eight) hours as needed for pain for up to 8 doses 8 tablet 08/18/2022 3 ondansetron ODT (ZOFRAN-ODT) 4 mg disintegrating tablet Take 1 tablet (4 mg total) by mouth every 8 (eight) hours as needed for nausea or vomiting 20 tablet 04/10/2022 3 tamsulosin (FLOMAX) 0.4 mg extended release capsuleIndications: Urolithiasis Take 1 capsule (0.4 mg total) by mouth daily as needed (Kidney stones) 4 documented as of this encounter Ordered Prescriptions Prescription Sig Dispense Quantity Refills Last Filled Start Date End Date cefdinir (OMNICEF) 300 mg capsule Take 1 capsule (300 mg total) by mouth 2 (two) times a day for 7 days 14 capsule 08/18/2022 3 HYDROcodone-acetam inophen (NORCO) 5-325 mg per tabletIndications: Pain Take 1 tablet by mouth every 8 (eight) hours as needed for pain for up to 8 doses 8 tablet 08/18/2022 3 hydrALAZINE (APRESOLINE) 25 mg tabletIndications: hypertension Take 1 tablet (25 mg total) by mouth 3 (three) times a day 90 tablet 08/18/2022 4 amLODIPine (NORVASC) 10 mg tablet Take 1 tablet (10 mg total) by mouth daily 30 tablet 08/19/2022 4 documented in this encounter Discharge Disposition Disposition Code Departure Means Destination Discharge to home or self care documented in this encounter Progress Notes * Sumaya Nuñez RN - 08/17/2022 1:09 PM CST CM Initial Assessment Interview Note Information Obtained From: Patient (08/17/22 1309) Admission Source: ED Impression: Presented to the ED from home with abdominal and flank pain. Patient is A/Ox4, VSS on RA. Found to have pyelonephritis with positive E. Coli. Waiting on sensitivity. Labs in chart were reviewed. Lab Results Component Value Date WBC 9.9 08/17/2022 HGB 14.4 08/17/2022 HCT 41.4 08/17/2022 MCV 90.4 08/17/2022 LABPLAT 227 08/17/2022 Lab Results Component Value Date GLUCOSE 122 08/17/2022 CALCIUM 9.3 08/17/2022 SODIUM 137 08/17/2022 POTASSIUM 4.3 08/17/2022 CO2 24 08/17/2022 CHLORIDE 104 08/17/2022 BUNSER 6 (L) 08/17/2022 CREATININE 0.50 (L) 08/17/2022 Lab Results Component Value Date AST 21 08/17/2022 ALT 22 08/17/2022 ALKPHOS 88 08/17/2022 No results found for: APTT, INR Lab Results Component Value Date COLORU Yellow 08/15/2022 CLARITYU Cloudy (A) 08/15/2022 KETONESU Negative 08/15/2022 BILIRUBINUR Negative 08/15/2022 UROBILINOGEN <2.0 08/15/2022 No results found for: CK, TROPONINT, TROPTHS, TROPONINI, BNP No components found for: HGBA1C;2 No components found for: TSH;2 @LASTURINETOX@ @LASTCHEMISTRY@ Lab Results Component Value Date TROPONINI <0.03 10/08/2017 Plan Includes: IVF, IV Abx, blood pressure control Primary Source of Transportation: Does the patient need discharge transport arranged?: No Has discharge transport been arranged?: No (08/17/22 130) Health Insurance Coverage: [employer] Prescription Coverage: same Pharmacy: [id number] - [place], [place] - [facility] [place] [id number] [facility] [id number] Primary Care Provider: Lucas Carter DO Prior to Admission: Primary Caregiver: Self Who does the patient or legal guardian want to receive education instruction and discharge plans for after care assistance?: Decline Support System: Spouse/Significant Other Home Care Services: No Durable Medical Equipment: None Living Arrangements: Spouse/significant other Type of Residence: Private residence (08/17/22 1309) Potential discharge needs include: no needs at this time Patient expects to be Discharged to: Private residence, (08/17/22 130) Patient's Identified Problem/Goal Problem: Ensure acute medical needs are met and that patient has a safe discharge plan. Goal: Secure a discharge plan that patient/family are agreeable with and ensure patient has continuum of care. Case management will follow for discharge planning and send referrals as needed. Goals include: To assure continuity of care, To maximize coping skills, To assure patient is in a safe environment and To assure access to community resources. Plan includes: 1. Collaboration with patient, MD, direct care nurse, Glass Blowing Instructor, and other members of the health care team to assure needed interventions completed. 2. Return patient to optimal level of self-care post discharge. 3. Net Software Developer will follow for Discharge Planning - interventions as needed 4. Anticipated level of care at discharge 5. Planned Discharge Disposition Sumaya Nuñez RN TIC MAINTENANCE TECHNICIAN * Juliette Thomas MD - 08/17/2022 9:02 AM CST Images from the original note were not included. General Medicine Daily Progress Subjective Chief complaint of right flank pain Interval History: flank pain has resolved, headache, episode of vomiting overnight Past Medical History: Diagnosis Date Hypertension Migraine Objective Vitals: 24hr Min/Max: Temp Min: 36.6 ??C (97.8 ??F) Max: 36.9 ??C (98.4 ??F) Pulse Min: 71 Max: 82 BP Min: 146/95 Max: 171/135 Resp Min: 16 Max: 18 SpO2 Min: 94 % Max: 97 % Most Recent : Vitals: 08/17/22 0733 BP: 152/88 Pulse: 82 Resp: 16 Temp: 36.7 ??C (98 ??F) SpO2: 97% No intake/output data recorded. No intake/output data recorded. Physical Exam: Physical Exam Constitutional: General: She is not in acute distress. HENT: Head: Normocephalic and atraumatic. Mouth/Throat: Pharynx: Oropharynx is clear. No oropharyngeal exudate. Eyes: General: No scleral icterus. Pupils: Pupils are equal, round, and reactive to light. Cardiovascular: Rate and Rhythm: Normal rate and regular rhythm. Pulmonary: Breath sounds: Normal breath sounds. No wheezing or rhonchi. Abdominal: General: Bowel sounds are normal. Palpations: Abdomen is soft. Tenderness: There is no left or right CVA tenderness. Musculoskeletal: Cervical back: Neck supple. Right lower leg: No edema. Left lower leg: No edema. Skin: General: Skin is warm and dry. Neurological: General: No focal deficit present. Mental Status: She is alert and oriented to person, place, and time. Psychiatric: Mood and Affect: Mood normal. Lab/Radiology/Diagnostic Review: Recent Results (from the past 24 hour(s)) CBC with auto differential Collection Time: 08/17/22 6:50 AM Result Value Ref Range WBC 9.9 3.8 - 9.9 K/cumm Hgb 14.4 11.9 - 15.5 g/dL Hct 41.4 35.6 - 45.5 % Plt 227 150 - 400 K/cumm MPV 9.8 9.1 - 12.3 fL RBC 4.58 3.90 - 5.20 M/cumm MCV 90.4 81.3 - 96.4 fL MCH 31.4 27.1 - 33.3 pg MCHC 34.8 32.3 - 35.7 g/dL RDW CV 12.7 11.1 - 14.9 % RDW SD 41.9 35.7 - 48.1 fL NRBC abs 0.00 0.00 - 0.01 K/cumm Comprehensive metabolic panel Collection Time: 08/17/22 6:50 AM Result Value Ref Range Sodium 137 135 - 145 mmol/L Potassium, pl 4.3 3.3 - 4.9 mmol/L Chloride 104 97 - 110 mmol/L CO2 24 22 - 32 mmol/L Anion gap 9 2 - 15 mmol/L BUN 6 (L) 8 - 25 mg/dL Creatinine 0.50 (L) 0.60 - 1.10 mg/dL Glucose 122 70 - 199 mg/dL Calcium 9.3 8.5 - 10.3 mg/dL Bilirubin, total 0.3 0.1 - 1.2 mg/dL Protein, pl 7.0 6.5 - 8.5 g/dL Albumin 4.1 3.5 - 5.0 g/dL Alk phos 88 40 - 130 Units/L ALT 22 7 - 45 Units/L AST 21 10 - 45 Units/L Magnesium Collection Time: 08/17/22 6:50 AM Result Value Ref Range Magnesium 2.2 1.4 - 2.5 mg/dL Differential, auto Collection Time: 08/17/22 6:50 AM Result Value Ref Range Neutrophil abs 8.1 (H) 1.7 - 6.5 K/cumm Imm gran abs 0.0 0.0 - 0.1 K/cumm Lymphocyte abs 1.3 0.8 - 3.3 K/cumm Monocyte abs 0.5 0.2 - 0.8 K/cumm Eosinophil abs 0.0 0.0 - 0.5 K/cumm Basophil abs 0.0 0.0 - 0.1 K/cumm Neutrophil pct 81.3 % Imm gran pct 0.3 % Lymphocyte pct 12.7 % Monocyte pct 5.0 % Eosinophil pct 0.3 % Basophil pct 0.4 % eGFR Collection Time: 08/17/22 6:50 AM Result Value Ref Range eGFR 119 mL/min/1.73 m2 Current Facility-Administered Medications Medication Dose Route Frequency Provider Last Rate Last Admin amLODIPine (NORVASC) tablet 10 mg 10 mg oral Daily Juliette Thomas MD sodium chloride 0.9% flush 0.5-20 mL 0.5-20 mL intra-catheter Q8H [facility] Jo Ann Tolbert NP 10 mL at 08/16/22 1610 And sodium chloride 0.9% flush 0.5-20 mL 0.5-20 mL intra-catheter PRN Jo Ann Tolbert NP And Carrier Fluids for Secondary Infusion - 0.9% Sodium Chloride 30 mL intravenous PRN Jo Ann Tolbert NP cefTRIAXone (ROCEPHIN) 2,000 mg/20 mL in sterile water (premix) 2,000 mg 2,000 mg intravenous Q24H [facility] Juliette Thomas MD 2,000 mg at 08/17/22 0822 docusate sodium (COLACE) capsule 100 mg 100 mg oral BID PRN Jo Ann Tolbert NP enoxaparin (LOVENOX) syringe 40 mg 40 mg subcutaneous Daily-2100 Jo Ann Tolbert NP 40 mg at 08/16/22 2030 hydrALAZINE (APRESOLINE) injection 10 mg 10 mg intravenous Q4H PRN Juliette Thomas MD 10 mg at 08/17/22 0507 hydrALAZINE (APRESOLINE) tablet 25 mg 25 mg oral TID Juliette Thomas MD HYDROmorphone (DILAUDID) injection 0.5 mg 0.5 mg intravenous Q2H PRN Juliette Thomas MD 0.5 mg at 08/17/22 0821 ibuprofen (ADVIL,MOTRIN) tablet 400 mg 400 mg oral TID PRN Juliette Thomas MD ondansetron ODT (ZOFRAN-ODT) disintegrating tablet 4 mg 4 mg oral Q6H PRN Jo Ann Tolbert NP Or ondansetron (ZOFRAN) injection 4 mg 4 mg intravenous Q6H PRN Jo Ann Tolbert NP 4 mg at 08/17/22 0217 oxyCODONE-acetaminophen (PERCOCET) 5-325 mg per tablet 1 tablet 1 tablet oral Q4H PRN Juliette Thomas MD 1 tablet at 08/17/22 0112 prochlorperazine (COMPAZINE) injection 5 mg 5 mg intravenous Q6H PRN Juliette Thomas MD 5 mg at 08/15/22 1726 tamsulosin (FLOMAX) extended release capsule 0.4 mg 0.4 mg oral Daily with dinner Juliette Thomas MD 0.4 mg at 08/16/22 1742 Assessment/Plan 42 years old F with PMH of kidney stone presented with right flank pain, found to have punctate stone with no hydronephrosis but right sided pyelonephritis. 1)Acute Right Sided Pyelonephritis: Improving symptoms Urine culture growing E.coli Blood culture negative till date C/w Ceftriaxone C/w flomax D/c IV fluids Pain control 2)HTN: C/w Hydralazine(increased dose) Add Norvasc 3)DVT ppx: Lovenox 4)Code:Full 5)Dispo:anticipate discharge in AM if doing ok Juliette Thomas MD 08/17/2022 1:52 PM TIC MAINTENANCE TECHNICIAN * Juliette Thomas MD - 08/16/2022 8:32 AM CST Images from the original note were not included. General Medicine Daily Progress Subjective Chief complaint of right flank pain Interval History: feeling much better today, pain is remarkably better Past Medical History: Diagnosis Date Hypertension Migraine Objective Vitals: 24hr Min/Max: Temp Min: 36.9 ??C (98.4 ??F) Max: 37.2 ??C (99 ??F) Pulse Min: 76 Max: 98 BP Min: 129/82 Max: 191/110 Resp Min: 16 Max: 20 SpO2 Min: 94 % Max: 99 % Most Recent : Vitals: 08/16/22 0903 BP: 156/99 Pulse: 94 Resp: Temp: SpO2: 95% I/O last 2 completed shifts: In: 360 [P.O.:360] Out: 1000 [Urine:1000] No intake/output data recorded. Physical Exam: Physical Exam Constitutional: General: She is not in acute distress. HENT: Head: Normocephalic and atraumatic. Mouth/Throat: Pharynx: Oropharynx is clear. No oropharyngeal exudate. Eyes: General: No scleral icterus. Pupils: Pupils are equal, round, and reactive to light. Cardiovascular: Rate and Rhythm: Normal rate and regular rhythm. Pulmonary: Breath sounds: Normal breath sounds. No wheezing or rhonchi. Abdominal: General: Bowel sounds are normal. Palpations: Abdomen is soft. Tenderness: There is right CVA tenderness. There is no left CVA tenderness. Musculoskeletal: Cervical back: Neck supple. Right lower leg: No edema. Left lower leg: No edema. Skin: General: Skin is warm and dry. Neurological: General: No focal deficit present. Mental Status: She is alert and oriented to person, place, and time. Psychiatric: Mood and Affect: Mood normal. Lab/Radiology/Diagnostic Review: Recent Results (from the past 24 hour(s)) Influenza A/B, RSV, and COVID-19 PCR Nasopharyngeal Collection Time: 08/15/22 3:28 PM Specimen: Nasopharyngeal Result Value Ref Range COVID-19 RNA Negative Negative Influenza A RNA Negative Negative Influenza B RNA Negative Negative RSV RNA Negative Negative Blood culture Blood Antecubital, right Collection Time: 08/15/22 4:07 PM Specimen: Antecubital, right; Blood Result Value Ref Range Report Preliminary Report: No growth to date. CBC with auto differential Collection Time: 08/16/22 7:46 AM Result Value Ref Range WBC 10.0 (H) 3.8 - 9.9 K/cumm Hgb 12.9 11.9 - 15.5 g/dL Hct 37.4 35.6 - 45.5 % Plt 218 150 - 400 K/cumm MPV 10.0 9.1 - 12.3 fL RBC 4.13 3.90 - 5.20 M/cumm MCV 90.6 81.3 - 96.4 fL MCH 31.2 27.1 - 33.3 pg MCHC 34.5 32.3 - 35.7 g/dL RDW CV 12.9 11.1 - 14.9 % RDW SD 42.4 35.7 - 48.1 fL NRBC abs 0.00 0.00 - 0.01 K/cumm Comprehensive metabolic panel Collection Time: 08/16/22 7:46 AM Result Value Ref Range Sodium 134 (L) 135 - 145 mmol/L Potassium, pl 3.2 (L) 3.3 - 4.9 mmol/L Chloride 103 97 - 110 mmol/L CO2 25 22 - 32 mmol/L Anion gap 6 2 - 15 mmol/L BUN 11 8 - 25 mg/dL Creatinine 0.60 0.60 - 1.10 mg/dL Glucose 94 70 - 199 mg/dL Calcium 8.7 8.5 - 10.3 mg/dL Bilirubin, total 0.4 0.1 - 1.2 mg/dL Protein, pl 6.2 (L) 6.5 - 8.5 g/dL Albumin 3.6 3.5 - 5.0 g/dL Alk phos 111 40 - 130 Units/L ALT 16 7 - 45 Units/L AST 14 10 - 45 Units/L Magnesium Collection Time: 08/16/22 7:46 AM Result Value Ref Range Magnesium 2.0 1.4 - 2.5 mg/dL Differential, auto Collection Time: 08/16/22 7:46 AM Result Value Ref Range Neutrophil abs 7.0 (H) 1.7 - 6.5 K/cumm Imm gran abs 0.0 0.0 - 0.1 K/cumm Lymphocyte abs 2.0 0.8 - 3.3 K/cumm Monocyte abs 0.9 (H) 0.2 - 0.8 K/cumm Eosinophil abs 0.1 0.0 - 0.5 K/cumm Basophil abs 0.0 0.0 - 0.1 K/cumm Neutrophil pct 70.0 % Imm gran pct 0.3 % Lymphocyte pct 19.9 % Monocyte pct 8.8 % Eosinophil pct 0.7 % Basophil pct 0.3 % eGFR Collection Time: 08/16/22 7:46 AM Result Value Ref Range eGFR 114 mL/min/1.73 m2 Current Facility-Administered Medications Medication Dose Route Frequency Provider Last Rate Last Admin sodium chloride 0.9% flush 0.5-20 mL 0.5-20 mL intra-catheter Q8H [facility] Jo Ann Tolbert NP And sodium chloride 0.9% flush 0.5-20 mL 0.5-20 mL intra-catheter PRN Jo Ann Tolbert NP And Carrier Fluids for Secondary Infusion - 0.9% Sodium Chloride 30 mL intravenous PRN Jo Ann Tolbert NP cefTRIAXone (ROCEPHIN) 2,000 mg/20 mL in sterile water (premix) 2,000 mg 2,000 mg intravenous Q24H [facility] Juliette Thomas MD docusate sodium (COLACE) capsule 100 mg 100 mg oral BID PRN Jo Ann Tolbert NP enoxaparin (LOVENOX) syringe 40 mg 40 mg subcutaneous Daily-2100 Jo Ann Tolbert NP 40 mg at 08/15/222126 hydrALAZINE (APRESOLINE) injection 10 mg 10 mg intravenous Q4H PRN Juliette Thomas MD hydrALAZINE (APRESOLINE) tablet 10 mg 10 mg oral TID Jo Ann Tolbert NP 10 mg at 08/15/222126 HYDROmorphone (DILAUDID) injection 0.5 mg 0.5 mg intravenous Q2H PRN Juliette Thomas MD 0.5 mg at 08/15/22 172 ondansetron ODT (ZOFRAN-ODT) disintegrating tablet 4 mg 4 mg oral Q6H PRN Jo Ann Tolbert NP Or ondansetron (ZOFRAN) injection 4 mg 4 mg intravenous Q6H PRN Jo Ann Tolbert NP oxyCODONE-acetaminophen (PERCOCET) 5-325 mg per tablet 1 tablet 1 tablet oral Q4H PRN Juliette Thomas MD prochlorperazine (COMPAZINE) injection 5 mg 5 mg intravenous Q6H PRN Juliette Thomas MD 5 mg at 08/15/22 1726 sodium chloride 0.9% infusion 75 mL/hr intravenous Continuous Juliette Thomas MD 75 mL/hr at 08/16/22 0225 75 mL/hr at 08/16/22 0225 tamsulosin (FLOMAX) extended release capsule 0.4 mg 0.4 mg oral Daily with dinner Juliette Thomas MD 0.4 mg at 08/15/22 1726 Assessment/Plan 42 years old F with PMH of kidney stone presented with right flank pain, found to have punctate stone with no hydronephrosis but right sided pyelonephritis. 1)Acute Right Sided Pyelonephritis: Improving symptoms F/u urine and blood culture C/w Ceftriaxone C/w flomax C/w IV fluids Supplement mag Pain control 2)HTN: C/w Hydralazine 3)DVT ppx: Lovenox 4)Code:Full 5)Dispo:pending improvement Juliette Thomas MD 08/16/2022 1:10 PM TIC MAINTENANCE TECHNICIAN * Christina Lilly, KHADAR - 08/15/2022 5:15 PM CST Pt arrives to room 256 via stretcher with transport staff. Pt A/Ox4 with c/o 7/10 pain to R flank and nausea. Pt BP elevated; will recheck after pain medication administration. Pt oriented to room and call light. TIC MAINTENANCE TECHNICIAN documented in this encounter H&P Notes * Jo Ann Tolbert NP - 08/15/2022 3:25 PM CST Images from the original note were not included. History and Physical Date of Service: 08/15/2022 Primary Care Physician: Lucas Carter DO [phone] CHIEF COMPLAINT: Presents to the ED with a chief complaint of severe right flank pain. HPI: Patient is a 42 y.o. female with a PMHx significant for hypertension, migraines, nephrolithiasis with stents, and GERD. The patient states that her right-sided flank pain started around noon yesterday and has not been associated with fever or chills. She also says she was not experiencing any dysuria but was experiencing frequency. On presentation to the emergency department she stated that her pain was a 7/10, she states that it worsened to a 10/10 and that she received a dose of Dilaudid which decreased it to a 5/10 which is the lowest she has noted since yesterday. She describes her pain as shooting and sharp like being stabbed. She also endorses nausea without vomiting or diarrhea. She denies any known sick contacts. She has had stones requiring stenting in the past. Lab evaluation onadmission was significant for leukocytosis with a white blood cell count of 12.5 and a positive UA.CT of the abdomen and pelvis demonstrated perinephritic stranding with possible punctate stones in the right distal ureter without evidence of hydronephrosis. She is a half a pack per day smoker for the last 25 years but denies a need of a nicotine patch on admission. Additionally, the patient has been significantly hypertensive with a blood pressure of 207/150 in the emergency department. She has received 10 mg of IV hydralazine with some improvement. Improvement has also been noted with pain medication. She received 2 g of IV Rocephin in the emergency department. Past Medical History: Diagnosis Date Hypertension Migraine Past Surgical History: Procedure Laterality Date SECTION HYSTERECTOMY KIDNEY SURGERY (Not in a hospital admission) Allergies Allergen Reactions Ketorolac Hives and Itching Tramadol Hives and Urticaria Social History Tobacco Use Smoking status: Every Day Packs/day: 0.50 Types: Cigarettes Smokeless tobacco: Never Substance and Sexual Activity Drug use: No Sexual activity: Yes Partners: Male control/protection: Hysterectomy Alcohol Use: Not on file Family History Problem Relation Age of Onset Hypertension Father Diabetes Neg Hx Review of Systems: Review of Systems Constitutional: Positive for fatigue. Negative for activity change, appetite change, chills, diaphoresis and fever. HENT: Negative. Eyes: Negative. Respiratory: Negative. Cardiovascular: Negative for chest pain, palpitations and leg swelling. Hypertension Gastrointestinal: Positive for nausea. Negative for constipation, diarrhea and vomiting. Endocrine: Negative. Genitourinary: Positive for flank pain (Right-sided, severe), frequency and urgency. Negative for dysuria. Musculoskeletal: Positive for back pain. Negative for joint swelling and myalgias. Skin: Negative. Neurological: Negative. Psychiatric/Behavioral: Negative. OBJECTIVE: Vitals: Arrival Vitals [08/15/22 0929] Temp 36.7 ??C (98 ??F) Pulse 80 Resp 18 BP (!) 207/150 SpO2 96 % Temp src Oral Heart Rate Source Monitor Patient Position Sitting BP Location Right arm FiO2 (%) Most Recent : Vitals: 08/15/22 1300 08/15/22 1417 08/15/22 1446 08/15/22 1455 BP: (!) 177/125 (!) 191/110 (!) 169/109 (!) 156/105 BP Location: Right arm Right arm Patient Position: Sitting Pulse: 79 76 81 Resp: 19 18 20 Temp: TempSrc: SpO2: 97% 96% 99% Weight: Height: No intake/output data recorded. No intake/output data recorded. Physical Exam: Physical Exam Vitals and nursing note reviewed. Constitutional: Appearance: Normal appearance. She is obese. HENT: Head: Normocephalic and atraumatic. Nose: Nose normal. Mouth/Throat: Mouth: Mucous membranes are dry. Eyes: Extraocular Movements: Extraocular movements intact. Conjunctiva/sclera: Conjunctivae normal. Pupils: Pupils are equal, round, and reactive to light. Cardiovascular: Rate and Rhythm: Normal rate and regular rhythm. Pulses: Normal pulses. Heart sounds: Normal heart sounds. Pulmonary: Effort: Pulmonary effort is normal. Breath sounds: Normal breath sounds. Comments: On room air Abdominal: General: Bowel sounds are normal. There is no distension. Palpations: Abdomen is soft. Tenderness: There is right CVA tenderness. Musculoskeletal: Cervical back: Normal range of motion and neck supple. Skin: General: Skin is warm and dry. Capillary Refill: Capillary refill takes less than 2 seconds. Neurological: General: No focal deficit present. Mental Status: She is alert and oriented to person, place, and time. Psychiatric: Mood and Affect: Mood normal. Behavior: Behavior normal. Lab/Radiology/Diagnostic Review: Recent Results (from the past 24 hour(s)) CBC with auto differential Collection Time: 08/15/22 9:47 AM Result Value Ref Range WBC 12.5 (H) 3.8 - 9.9 K/cumm Hgb 15.9 (H) 11.9 - 15.5 g/dL Hct 44.8 35.6 - 45.5 % Plt 267 150 - 400 K/cumm MPV 9.2 9.1 - 12.3 fL RBC 5.05 3.90 - 5.20 M/cumm MCV 88.7 81.3 - 96.4 fL MCH 31.5 27.1 - 33.3 pg MCHC 35.5 32.3 - 35.7 g/dL RDW CV 12.6 11.1 - 14.9 % RDW SD 40.6 35.7 - 48.1 fL NRBC abs 0.00 0.00 - 0.01 K/cumm Comprehensive metabolic panel Collection Time: 08/15/22 9:47 AM Result Value Ref Range Sodium 136 135 - 145 mmol/L Potassium, pl 4.0 3.3 - 4.9 mmol/L Chloride 103 97 - 110 mmol/L CO2 25 22 - 32 mmol/L Anion gap 8 2 - 15 mmol/L BUN 15 8 - 25 mg/dL Creatinine 0.70 0.60 - 1.10 mg/dL Glucose 97 70 - 199 mg/dL Calcium 9.7 8.5 - 10.3 mg/dL Bilirubin, total 0.7 0.1 - 1.2 mg/dL Protein, pl 7.7 6.5 - 8.5 g/dL Albumin 4.5 3.5 - 5.0 g/dL Alk phos 102 40 - 130 Units/L ALT 23 7 - 45 Units/L AST 19 10 - 45 Units/L Lipase Collection Time: 08/15/22 9:47 AM Result Value Ref Range Lipase 22 10 - 99 Units/L Differential, auto Collection Time: 08/15/22 9:47 AM Result Value Ref Range Neutrophil abs 8.9 (H) 1.7 - 6.5 K/cumm Imm gran abs 0.0 0.0 - 0.1 K/cumm Lymphocyte abs 2.5 0.8 - 3.3 K/cumm Monocyte abs 0.9 (H) 0.2 - 0.8 K/cumm Eosinophil abs 0.1 0.0 - 0.5 K/cumm Basophil abs 0.1 0.0 - 0.1 K/cumm Neutrophil pct 70.7 % Imm gran pct 0.3 % Lymphocyte pct 20.1 % Monocyte pct 7.4 % Eosinophil pct 1.0 % Basophil pct 0.5 % eGFR Collection Time: 08/15/22 9:47 AM Result Value Ref Range eGFR 110 mL/min/1.73 m2 Urinalysis reflex to microscopic and culture Urine Collection Time: 08/15/22 10:25 AM Specimen: Urine Result Value Ref Range Color, ur Yellow Yellow Clarity, ur Cloudy (A) Clear Specific gravity, ur 1.018 1.003 - 1.030 pH, urine 5.0 Protein, ur ql 2+ (A) Negative Glucose, ur ql Negative Negative Ketones, ur Negative Negative Bilirubin, ur Negative Negative Blood, ur 3+ (A) Negative Urobilinogen, ur <2.0 <2.0 mg/dL Nitrite, ur Positive (A) Negative Leukocyte esterase, ur 4+ (A) Negative UA reflex comment Reflex to microscopic UA will be performed. Urinalysis, microscopic only Collection Time: 08/15/22 10:25 AM Result Value Ref Range WBC, ur >50 (A) 0 - 5 /HPF RBC, ur >50 (A) 0 - 2 /HPF Epithelial cells, squamous, ur 1-5 0 - 5 /HPF Mucous, ur Present (A) Culture Reflex Comment Reflex to urine culture will be performed. CT Abdomen Pelvis WO Contrast Result Date: 08/15/2022 Narrative: EXAM DESCRIPTION: CT ABDOMEN PELVIS WO CONTRAST REASON FOR STUDY: Flank pain, kidney stone suspected Pt states onset of R sided flank pain yesterday. Pt states hx of stents due to stones. Surg hx: , hysterectomy TECHNIQUE: CT scan of the abdomen and pelvis performed without intravenous and without oral contrast using helical scanning technique. Reconstructed coronal and sagittal MPR images reviewed. All images stored on PACS. Automated exposure control was used as a dose optimization technique for this examination. COMPARISON: 06/25/2022 FINDINGS: The sensitivity for detection of visceral lesions is diminished without the use of intravenous contrast. LOWER CHEST: No significant pulmonary abnormalities. No effusion. LIVER: The liver is normal in size. There is likely hepatic steatosis. No definite liver lesion is seen. GALLBLADDER: Gallbladder is partially distended. Sludge or cholelithiasis. No wall thickening, stranding or pericholecystic fluid to suggest acute cho lecystitis. BILE DUCTS: No gross biliary ductal dilatation. SPLEEN: Spleen is normal in size. PANCREAS: Pancreas is normal in size. No significant peripancreatic stranding or main ductal dilatation. ADRENALS: Normal. KIDNEYS/URINARY TRACT: The kidneys are normal in size mild right perinephric and periureteral stranding. There is no associated right hydronephrosis. There are possible punctate stones within the distal right ureter (122). No right renal stone is seen. No left hydronephrosis or nephrolithiasis. The urinary bladder is partially distended without substantial thickening or stranding. GI: Scattered colonic diverticula without CT evidence of diverticulitis. Appendix is nondilated. The small bowel is nondilated minimal. Borderline thickening of loops of jejunum within the left upper quadrant, likely due to under distension. No evidence of bowel obstruction. PERITONEUM: No free air. No ascites. No mesenteric lymphadenopathy. RETROPERITONEUM: No retroperitoneal or inguinal lymphadenopathy is seen. REPRODUCTIVE: Uterus is absent. Grossly stable 3 cm left ovarian cyst. VASCULATURE: Aorta is normal caliber. MUSCULOSKELETAL: Bone windows demonstrate no suspicious lytic or sclerotic lesion. No acute fracture seen. OTHER: No other abnormality. IMPRESSION: 1. Mild right perinephric /periureteral stranding. This is evidence for inflammation which may be due to possible punctate stones within the distal right ureter or pyelonephritis. Recommend correlation with urinalysis. No right hydronephrosis. REFERENCE: Unless otherwise specified, no follow-up imaging is recommended for incidental renal and adrenal lesions per consensus recommendations based on imaging criteria. Further lab evaluation could be pursued based on clinical findings. Management of the Incidental Renal Mass on CT: A White Paper of the ACR Incidental Findings Committee. J Am Haris Radiol. 2018 Sep;15(2):264-273. Management of Incidental Adrenal Masses: A White Paper of the ACR Incidental Findings Committee. J Am Haris Radiol. 2017 Mar;14(8):7756-4313. THIS IS AN ELECTRONICALLY VERIFIED FINAL REPORT 08/15/2022 11:43 AM - Electronically signed by Laci Alonso M.D. AG T: Report ID: [id number] Reading Location: [place] [address] ASSESSMENT/PLAN: Principal Problem: Pyelonephritis Active Problems: Acute right flank pain Hypertensive urgency Resolved Problems: No resolved hospital problems. Full Code 1. Pyelonephritis -IV Rocephin -CT abdomen and pelvis reviewed, no evidence of hydronephrosis -maintenance IV fluids with LR at 75 -advance diet as tolerated -Compazine 2. Acute right flank pain -pain control -acetaminophen p.r.n. -oxycodone p.r.n. -Dilaudid p.r.n. 3. Asymptomatic hypertensive urgency -IV hydralazine p.r.n. -hold home lisinopril-HCTZ secondary to decreased fluid volume status and risk for kidney injury -p.o. hydralazine t.i.d. scheduled -likely partially due to severe pain 4. Tobacco dependence -half a pack per day smoker times 25 years -tobacco cessation counseling -patient declined nicotine patch ESTIMATED LENGTH OF STAY: Greater than 2 midnights Approximate time spent for chart review, assessment, interview, and note - 30 min DVT prophylaxis: [employer]-Sn[employer]! Voice recognition software [employer] may have been used to dictate and transcribe this document. Candy Supervisor variances may occur. Despite proofreading, typographical errors may occur. Jo Ann Tolbert NP 08/15/2022 3:34 PM Cosigned by Juliette Thomas MD at 08/15/2022 5:39 PM ROBOTIC MAINTENANCE TECHNICIAN TIC MAINTENANCE TECHNICIAN TIC MAINTENANCE TECHNICIAN Associated attestation - Juliette Thomas MD - 08/15/2022 5:39 PM ROBOTIC MAINTENANCE TECHNICIAN I saw and evaluated the patient independently and agree with plan outlined. Briefly 42 years old F with PMH of recurrent kidney stone presented with severe right flank pain which started yesterday. Associated with nausea, but no fever, or vomiting. Exam: General: in distress due to pain, diaphoretic HEENT:SARAH,EOMI CVS:S1S2 present Resp:B/L CTA Abd:Soft, right flank tenderness+ Ext: no edema A&P: 42 years old F with PMH of kidney stone presented with right flank pain, found to have punctate stone with no hydronephrosis but right sided pyelonephritis. 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 Juliette Thomas MD 08/15/2022 documented in this encounter Nursing Notes * Sandra Kimble RN - 08/18/2022 2:03 PM CST Pt ready for discharge and all belongings with pt. Alert and discharged per ambulatory per request and jhon well TIC MAINTENANCE TECHNICIAN * Sandra Kimble RN - 08/18/2022 1:19 PM CST Pt alert and up in room without hematuria or temp. Reviewed all discharge instructions and gave herstrainer and cup if passing stone at home. Pt understands and no questions. Medicated earlier for pain and encouraging fluids TIC MAINTENANCE TECHNICIAN * Miranda Gordillo RN - 08/17/2022 1:48 PM CST Patient was offered an opportunity to wash up at the bedside or to take a shower independently and she refused all throughout the shift. Will monitor. TIC MAINTENANCE TECHNICIAN documented in this encounter ED Notes * Rocky Rosen NP - 08/15/2022 3:21 PM CST HPI Chief Complaint Patient presents with Flank Pain HPI 3:24 PM Renee Marsh is a 42 y.o. female presenting to the ED c/o right flank pain. She states thatsince last night she is having right flank pain along with urinary hesitancy that is progressively getting worse. She also complaining of nausea. She states that she is a history of frequent kidney stone and this appeared to be kidney stone. She denies any fever or chill. Denies any urinary urgencyor dysuria or frequency or hematuria. Denies any chest pain, shortness of breath, dizziness or weakness. Denies any other complaint. Patient History: Past Medical History: Diagnosis Date Hypertension Migraine Past Surgical History: Procedure Laterality Date SECTION HYSTERECTOMY KIDNEY SURGERY Family History Problem Relation Age of Onset Hypertension Father Diabetes Neg Hx Social History Tobacco Use Smoking status: Every Day Packs/day: 0.50 Types: Cigarettes Smokeless tobacco: Never Substance and Sexual Activity Drug use: No Sexual activity: Yes Partners: Male control/protection: Hysterectomy Alcohol Use: Not on file Current Facility-Administered Medications: acetaminophen (TYLENOL) tablet 975 mg, 975 mg, oral, Q6H PRN [START ON 08/16/2022] cefTRIAXone (ROCEPHIN) 2,000 mg/20 mL in sterile water (premix) 2,000 mg, 2,000mg, intravenous, Q24H [facility] hydrALAZINE (APRESOLINE) injection 10 mg, 10 mg, intravenous, Q4H PRN HYDROmorphone (DILAUDID) injection 0.5 mg, 0.5 mg, intravenous, Q2H PRN oxyCODONE-acetaminophen (PERCOCET) 5-325 mg per tablet 1 tablet, 1 tablet, oral, Q4H PRN prochlorperazine (COMPAZINE) injection 5 mg, 5 mg, intravenous, Q6H PRN sodium chloride 0.9% infusion, 75 mL/hr, intravenous, Continuous tamsulosin (FLOMAX) extended release capsule 0.4 mg, 0.4 mg, oral, Daily with dinner Current Outpatient Medications: diclofenac sodium (VOLTAREN) 1 % gel gabapentin (NEURONTIN) 300 mg capsule HYDROcodone-acetaminophen (NORCO) 5-325 mg per tablet hydrocortisone (Anusol-HC) 2.5 % rectal cream lidocaine (GLYDO) 2 % jelly in applicator lisinopril-hydroCHLOROthiazide (ZESTORETIC) 20-12.5 mg per tablet mesalamine (CANASA) 1,000 mg suppository MULTIVIT-MINERALS/FERROUS FUM (MULTI VITAMIN ORAL) omeprazole (PriLOSEC) 20 mg capsule ondansetron ODT (ZOFRAN-ODT) 4 mg disintegrating tablet oxyCODONE-acetaminophen (PERCOCET) 5-325 mg per tablet Review of Systems Review of Systems Constitutional: Negative for chills and fever. HENT: Negative for ear pain and sore throat. Eyes: Negative for pain and visual disturbance. Respiratory: Negative for cough and shortness of breath. Cardiovascular: Negative for chest pain and palpitations. Gastrointestinal: Positive for abdominal pain and nausea. Negative for vomiting. Genitourinary: Positive for decreased urine volume and flank pain. Negative for dysuria and hematuria. Musculoskeletal: Negative for arthralgias and back pain. Skin: Negative for color change and rash. Neurological: Negative for seizures and syncope. All other systems reviewed and are negative. Physical Exam ED Triage Vitals [08/15/22 0929] Temp Pulse Resp BP SpO2 36.7 ??C (98 ??F) 80 18 (!) 207/150 96 % Temp src Heart Rate Source Patient Position BP Location FiO2 (%) Oral Monitor Sitting Right arm -- Height Height Method Weight Weight Method 1.6 m (5' 3 ) Stated 78 kg (171 lb 15.3 oz) Standing scale Physical Exam Vitals and nursing note reviewed. Constitutional: General: She is not in acute distress. Appearance: Normal appearance. She is well-developed. She is not ill-appearing, toxic-appearing or diaphoretic. HENT: Head: Normocephalic and atraumatic. Jaw: There is normal jaw occlusion. Right Ear: Hearing and external ear normal. Left Ear: Hearing and external ear normal. Nose: Nose normal. Mouth/Throat: Mouth: Mucous membranes are dry. Eyes: General: Lids are normal. Vision grossly intact. Extraocular Movements: Extraocular movements intact. Conjunctiva/sclera: Conjunctivae normal. Neck: Trachea: Trachea and phonation normal. Cardiovascular: Rate and Rhythm: Normal rate and regular rhythm. Pulses: Normal pulses. Radial pulses are 2+ on the right side and 2+ on the left side. Heart sounds: Normal heart sounds. No murmur heard. Pulmonary: Effort: Pulmonary effort is normal. No respiratory distress. Breath sounds: Normal breath sounds and air entry. Abdominal: General: Bowel sounds are normal. There is no distension. Palpations: Abdomen is soft. Tenderness: There is right CVA tenderness. There is no guarding. Musculoskeletal: Cervical back: Full passive range of motion without pain, normal range of motion and neck supple. Skin: General: Skin is warm and dry. Capillary Refill: Capillary refill takes less than 2 seconds. Neurological: General: No focal deficit present. Mental Status: She is alert and oriented to person, place, and time. GCS: GCS eye subscore is 4. GCS verbal subscore is 5. GCS motor subscore is 6. Cranial Nerves: Cranial nerves 2-12 are intact. Sensory: Sensation is intact. Motor: Motor function is intact. Coordination: Coordination is intact. Gait: Gait is intact. Psychiatric: Attention and Perception: Attention normal. Mood and Affect: Mood normal. Speech: Speech normal. Behavior: Behavior normal. Behavior is cooperative. Thought Content: Thought content normal. Procedures [facility] Labs Reviewed URINALYSIS AND REFLEX TO MICROSCOPIC AND CULTURE - Abnormal Result Value Color, ur Yellow Clarity, ur Cloudy (*) Specific gravity, ur 1.018 pH, urine 5.0 Protein, ur ql 2+ (*) Glucose, ur ql Negative Ketones, ur Negative Bilirubin, ur Negative Blood, ur 3+ (*) Urobilinogen, ur <2.0 Nitrite, ur Positive (*) Leukocyte esterase, ur 4+ (*) UA reflex comment Reflex to microscopic UA will be performed. Narrative: Urine pH is affected by diet, medications, systemic acid-base disturbances, and renal tubular function. pH may affect urinary stone formation. For example, urine pH below 6.0 may help reduce the tendency for calcium phosphate stones and pH greater than 6.0 may reduce the tendency for uric acid stone formation. Source: [facility] [employer].Last revised 08-22-2017 CBC WITH AUTO DIFFERENTIAL - Abnormal WBC 12.5 (*) Hgb 15.9 (*) Hct 44.8 Plt 267 MPV 9.2 RBC 5.05 MCV 88.7 MCH 31.5 MCHC 35.5 RDW CV 12.6 RDW SD 40.6 NRBC abs 0.00 DIFFERENTIAL AUTO - Abnormal Neutrophil abs 8.9 (*) Imm gran abs 0.0 Lymphocyte abs 2.5 Monocyte abs 0.9 (*) Eosinophil abs 0.1 Basophil abs 0.1 Neutrophil pct 70.7 Imm gran pct 0.3 Lymphocyte pct 20.1 Monocyte pct 7.4 Eosinophil pct 1.0 Basophil pct 0.5 URINALYSIS, MICROSCOPIC ONLY - Abnormal WBC, ur >50 (*) RBC, ur >50 (*) Epithelial cells, squamous, ur 1-5 Mucous, ur Present (*) Culture Reflex Comment Reflex to urine culture will be performed. URINE CULTURE BLOOD CULTURE BLOOD CULTURE COMPREHENSIVE METABOLIC PANEL Sodium 136 Potassium, pl 4.0 Chloride 103 CO2 25 Anion gap 8 BUN 15 Creatinine 0.70 Glucose 97 Calcium 9.7 Bilirubin, total 0.7 Protein, pl 7.7 Albumin 4.5 Alk phos 102 ALT 23 AST 19 LIPASE Lipase [address] Abdomen Pelvis WO Contrast Final Result BP (!) 156/105 Pulse 81 Temp 36.7 ??C (98 ??F) (Oral) Resp 20 Ht 160 cm (5' 3 ) Wt 78 kg (171 lb 15.3 oz) SpO2 99% BMI 30.46 kg/m?? ED Course: Disposition: This examination was transcribed using the [employer] voice recognition system without human staff assistant. In an effort to expedite patient care, this report has not been adjusted for typographical, grammatical, and syntax by a trained medical voucher clerk. Clinical Impression: Pyelonephritis Rocky Rosen NP 08/15/22 1524 Cosigned by Jorge Rodrigez II, MD at 08/15/2022 3:29 PM ROBOTIC MAINTENANCE TECHNICIAN TIC MAINTENANCE TECHNICIAN TIC MAINTENANCE TECHNICIAN * Janiya Díaz RN - 08/15/2022 9:35 AM CST Pt states onset of R sided flank pain yesterday. Pt states hx of stents due to stones. Pt reports use of flomax yesterday. TIC MAINTENANCE TECHNICIAN documented in this encounter Miscellaneous Notes * Plan of Care - Sandra Kimble RN - 08/18/2022 11:57 AM CST Problem: Facility Isolation Psychosocial Wellbeing Description: Resident at risk for psychosocial wellbeing concern related to medical and visitation restrictions secondary to COVID-19 Goal: Resident will not show a decline in psychosocial wellbeing or experience adverse effects through next review Description: 1. Educate resident, family, resident representatives, staff and visitors of COVID-19 signs and symptoms and precautions 2. Provide emotional support and allow resident to express feelings, fears, and concerns 3. Observe for psychosocial and mental status changes, document and update high school social studies teacher and MD as needed 4. Provide in room activities of choice if indicated 5. Provide alternative methods of communication with family/visitors 6. Assure resident, family, and resident representatives facility is taking precautions to keep them safe 7. Update resident, family, and resident representatives as needed Outcome: Progressing Problem: COVID-19 Prevention and Monitoring Description: Resident requires monitoring and prevention as they relate to COVID-19 Goal: Resident will show no signs or symptoms of COVID-19 Description: 1. Monitor frequently for potential symptoms including fever and respiratory symptoms 2. Educate resident, family, resident representatives, staff and visitors of COVID-19 signs and symptoms and precautions 3. Remind residents to report if they feel feverish or have symptoms of respiratory infection 4. Reinforce no visitor policy and non-essential health care personnel policy, except for certain compassionate care situations 5. When visitors are necessary and meet exception to no visitor policy, limit to a specified room, encourage social distancing with no handshakes, physical contact, and remaining 6 feet apart 6. Update resident, family, and resident representatives as needed Outcome: Progressing Problem: Lack of Knowledge: Goal: Ability to develop a pain control plan will improve Outcome: Progressing Goal: Ability to identify pain intensity on a pain scale and rate it consistently will improve Outcome: Progressing Goal: Ability to notify healthcare provider of pain before it becomes unmanageable or unbearable will improve Outcome: Progressing Problem: Medication: Goal: Satisfaction with pain management regimen will improve Outcome: Progressing Problem: Sensory: Goal: Ability to identify factors that increase the pain will improve Outcome: Progressing Goal: Pain level will decrease Outcome: Progressing Problem: Activity: Goal: Ability to return to normal activity level will improve Outcome: Progressing Problem: Lack of Knowledge: Goal: Knowledge of the prescribed therapeutic regimen will improve Outcome: Progressing Problem: Coping: Goal: Ability to cope will improve Outcome: Progressing Problem: Health Behavior: Goal: Identification of resources available to assist in meeting health care needs will improve Outcome: Progressing Problem: Sensory: Goal: Pain level will decrease Outcome: Progressing Problem: Health Behavior: Goal: Understanding of discharge needs will improve Outcome: Progressing Goals: Clinical Goals for the Shift: pain control, VSS, restful night Summary:review urinary care, stones TIC MAINTENANCE TECHNICIAN * Plan of Care - Clouser, Joycelyn, RN - 08/18/2022 4:06 AM CST Goals: Clinical Goals for the Shift: pain control, VSS, restful night Problem: Lack of Knowledge: Goal: Ability to develop a pain control plan will improve Outcome: Progressing Goal: Ability to identify pain intensity on a pain scale and rate it consistently will improve Outcome: Progressing Goal: Ability to notify healthcare provider of pain before it becomes unmanageable or unbearable will improve Outcome: Progressing Problem: Medication: Goal: Satisfaction with pain management regimen will improve Outcome: Progressing Summary: VSS. Patient complaining of abdominal discomfort and given PRN medications. Still straining urine. No complaints at this time. Currently resting in bed. TIC MAINTENANCE TECHNICIAN * Plan of Care - Miranda Gordillo RN - 08/17/2022 4:41 PM CST Problem: Facility Isolation Psychosocial Wellbeing Description: Resident at risk for psychosocial wellbeing concern related to medical and visitation restrictions secondary to COVID-19 Goal: Resident will not show a decline in psychosocial wellbeing or experience adverse effects through next review Description: 1. Educate resident, family, resident representatives, staff and visitors of COVID-19 signs and symptoms and precautions 2. Provide emotional support and allow resident to express feelings, fears, and concerns 3. Observe for psychosocial and mental status changes, document and update high school social studies teacher and MD as needed 4. Provide in room activities of choice if indicated 5. Provide alternative methods of communication with family/visitors 6. Assure resident, family, and resident representatives facility is taking precautions to keep them safe 7. Update resident, family, and resident representatives as needed Outcome: Progressing Problem: COVID-19 Prevention and Monitoring Description: Resident requires monitoring and prevention as they relate to COVID-19 Goal: Resident will show no signs or symptoms of COVID-19 Description: 1. Monitor frequently for potential symptoms including fever and respiratory symptoms 2. Educate resident, family, resident representatives, staff and visitors of COVID-19 signs and symptoms and precautions 3. Remind residents to report if they feel feverish or have symptoms of respiratory infection 4. Reinforce no visitor policy and non-essential health care personnel policy, except for certain compassionate care situations 5. When visitors are necessary and meet exception to no visitor policy, limit to a specified room, encourage social distancing with no handshakes, physical contact, and remaining 6 feet apart 6. Update resident, family, and resident representatives as needed Outcome: Progressing Problem: Lack of Knowledge: Goal: Ability to develop a pain control plan will improve Outcome: Progressing Goal: Ability to identify pain intensity on a pain scale and rate it consistently will improve Outcome: Progressing Goal: Ability to notify healthcare provider of pain before it becomes unmanageable or unbearable will improve Outcome: Progressing Problem: Medication: Goal: Satisfaction with pain management regimen will improve Outcome: Progressing Problem: Sensory: Goal: Ability to identify factors that increase the pain will improve Outcome: Progressing Goal: Pain level will decrease Outcome: Progressing Problem: Activity: Goal: Ability to return to normal activity level will improve Outcome: Progressing Problem: Lack of Knowledge: Goal: Knowledge of the prescribed therapeutic regimen will improve Outcome: Progressing Problem: Coping: Goal: Ability to cope will improve Outcome: Progressing Problem: Health Behavior: Goal: Identification of resources available to assist in meeting health care needs will improve Outcome: Progressing Problem: Sensory: Goal: Pain level will decrease Outcome: Progressing Problem: Health Behavior: Goal: Understanding of discharge needs will improve Outcome: Progressing Goals: Clinical Goals for the Shift: stablilize BP; pain and nausea control TIC MAINTENANCE TECHNICIAN * Plan of Care - Van Braxton RN - 08/16/2022 8:15 PM CST Problem: Facility Isolation Psychosocial Wellbeing Description: Resident at risk for psychosocial wellbeing concern related to medical and visitation restrictions secondary to COVID-19 Goal: Resident will not show a decline in psychosocial wellbeing or experience adverse effects through next review Description: 1. Educate resident, family, resident representatives, staff and visitors of COVID-19 signs and symptoms and precautions 2. Provide emotional support and allow resident to express feelings, fears, and concerns 3. Observe for psychosocial and mental status changes, document and update high school social studies teacher and MD as needed 4. Provide in room activities of choice if indicated 5. Provide alternative methods of communication with family/visitors 6. Assure resident, family, and resident representatives facility is taking precautions to keep them safe 7. Update resident, family, and resident representatives as needed 08/16/20222014 by Van Braxton RN Outcome: Progressing 08/16/20222014 by Van Braxton RN Outcome: Progressing Problem: COVID-19 Prevention and Monitoring Description: Resident requires monitoring and prevention as they relate to COVID-19 Goal: Resident will show no signs or symptoms of COVID-19 Description: 1. Monitor frequently for potential symptoms including fever and respiratory symptoms 2. Educate resident, family, resident representatives, staff and visitors of COVID-19 signs and symptoms and precautions 3. Remind residents to report if they feel feverish or have symptoms of respiratory infection 4. Reinforce no visitor policy and non-essential health care personnel policy, except for certain compassionate care situations 5. When visitors are necessary and meet exception to no visitor policy, limit to a specified room, encourage social distancing with no handshakes, physical contact, and remaining 6 feet apart 6. Update resident, family, and resident representatives as needed 08/16/20222014 by Van Braxton RN Outcome: Progressing 08/16/20222014 by Van Braxton RN Outcome: Progressing Problem: Lack of Knowledge: Goal: Ability to develop a pain control plan will improve 08/16/20222014 by Van Braxton RN Outcome: Progressing 08/16/20222014 by Van Braxton RN Outcome: Progressing Goal: Ability to identify pain intensity on a pain scale and rate it consistently will improve 08/16/20222014 by Van Braxton RN Outcome: Progressing 08/16/20222014 by Van Braxton RN Outcome: Progressing Goal: Ability to notify healthcare provider of pain before it becomes unmanageable or unbearable will improve 08/16/20222014 by Van Braxton RN Outcome: Progressing 08/16/20222014 by Van Braxton RN Outcome: Progressing Problem: Medication: Goal: Satisfaction with pain management regimen will improve 08/16/20222014 by Van Braxton RN Outcome: Progressing 08/16/20222014 by Van Braxton RN Outcome: Progressing Problem: Sensory: Goal: Ability to identify factors that increase the pain will improve 08/16/20222014 by Van Braxton RN Outcome: Progressing 08/16/20222014 by Van Braxton RN Outcome: Progressing Goal: Pain level will decrease 08/16/20222014 by Van Braxton RN Outcome: Progressing 08/16/20222014 by Van Braxton RN Outcome: Progressing Problem: Activity: Goal: Ability to return to normal activity level will improve 08/16/20222014 by Van Braxton RN Outcome: Progressing 08/16/20222014 by Van Braxton RN Outcome: Progressing Problem: Lack of Knowledge: Goal: Knowledge of the prescribed therapeutic regimen will improve 08/16/20222014 by Van Braxton RN Outcome: Progressing 08/16/20222014 by Van Braxton RN Outcome: Progressing Problem: Coping: Goal: Ability to cope will improve 08/16/20222014 by Van Braxton RN Outcome: Progressing 08/16/20222014 by Van Braxton RN Outcome: Progressing Problem: Health Behavior: Goal: Identification of resources available to assist in meeting health care needs will improve 08/16/20222014 by Van Braxton RN Outcome: Progressing 08/16/20222014 by Van Braxton RN Outcome: Progressing Problem: Sensory: Goal: Pain level will decrease 08/16/20222014 by Van Braxton RN Outcome: Progressing 08/16/20222014 by Van Braxton RN Outcome: Progressing Goals: Clinical Goals for the Shift: stablilize BP; pain and nausea control Summary: TIC MAINTENANCE TECHNICIAN * Plan of Care - Van Braxton RN - 08/16/2022 8:15 PM CST Problem: Facility Isolation Psychosocial Wellbeing Description: Resident at risk for psychosocial wellbeing concern related to medical and visitation restrictions secondary to COVID-19 Goal: Resident will not show a decline in psychosocial wellbeing or experience adverse effects through next review Description: 1. Educate resident, family, resident representatives, staff and visitors of COVID-19 signs and symptoms and precautions 2. Provide emotional support and allow resident to express feelings, fears, and concerns 3. Observe for psychosocial and mental status changes, document and update high school social studies teacher and MD as needed 4. Provide in room activities of choice if indicated 5. Provide alternative methods of communication with family/visitors 6. Assure resident, family, and resident representatives facility is taking precautions to keep them safe 7. Update resident, family, and resident representatives as needed Outcome: Progressing Problem: COVID-19 Prevention and Monitoring Description: Resident requires monitoring and prevention as they relate to COVID-19 Goal: Resident will show no signs or symptoms of COVID-19 Description: 1. Monitor frequently for potential symptoms including fever and respiratory symptoms 2. Educate resident, family, resident representatives, staff and visitors of COVID-19 signs and symptoms and precautions 3. Remind residents to report if they feel feverish or have symptoms of respiratory infection 4. Reinforce no visitor policy and non-essential health care personnel policy, except for certain compassionate care situations 5. When visitors are necessary and meet exception to no visitor policy, limit to a specified room, encourage social distancing with no handshakes, physical contact, and remaining 6 feet apart 6. Update resident, family, and resident representatives as needed Outcome: Progressing Problem: Lack of Knowledge: Goal: Ability to develop a pain control plan will improve Outcome: Progressing Goal: Ability to identify pain intensity on a pain scale and rate it consistently will improve Outcome: Progressing Goal: Ability to notify healthcare provider of pain before it becomes unmanageable or unbearable will improve Outcome: Progressing Problem: Medication: Goal: Satisfaction with pain management regimen will improve Outcome: Progressing Problem: Sensory: Goal: Ability to identify factors that increase the pain will improve Outcome: Progressing Goal: Pain level will decrease Outcome: Progressing Problem: Activity: Goal: Ability to return to normal activity level will improve Outcome: Progressing Problem: Lack of Knowledge: Goal: Knowledge of the prescribed therapeutic regimen will improve Outcome: Progressing Problem: Coping: Goal: Ability to cope will improve Outcome: Progressing Problem: Health Behavior: Goal: Identification of resources available to assist in meeting health care needs will improve Outcome: Progressing Problem: Sensory: Goal: Pain level will decrease Outcome: Progressing Goals: Clinical Goals for the Shift: stablilize BP; pain and nausea control Summary: TIC MAINTENANCE TECHNICIAN * Plan of Care Miranda Anaya RN - 08/16/2022 2:17 PM CST Problem: Facility Isolation Psychosocial Wellbeing Description: Resident at risk for psychosocial wellbeing concern related to medical and visitation restrictions secondary to COVID-19 Goal: Resident will not show a decline in psychosocial wellbeing or experience adverse effects through next review Description: 1. Educate resident, family, resident representatives, staff and visitors of COVID-19 signs and symptoms and precautions 2. Provide emotional support and allow resident to express feelings, fears, and concerns 3. Observe for psychosocial and mental status changes, document and update high school social studies teacher and MD as needed 4. Provide in room activities of choice if indicated 5. Provide alternative methods of communication with family/visitors 6. Assure resident, family, and resident representatives facility is taking precautions to keep them safe 7. Update resident, family, and resident representatives as needed Outcome: Progressing Problem: COVID-19 Prevention and Monitoring Description: Resident requires monitoring and prevention as they relate to COVID-19 Goal: Resident will show no signs or symptoms of COVID-19 Description: 1. Monitor frequently for potential symptoms including fever and respiratory symptoms 2. Educate resident, family, resident representatives, staff and visitors of COVID-19 signs and symptoms and precautions 3. Remind residents to report if they feel feverish or have symptoms of respiratory infection 4. Reinforce no visitor policy and non-essential health care personnel policy, except for certain compassionate care situations 5. When visitors are necessary and meet exception to no visitor policy, limit to a specified room, encourage social distancing with no handshakes, physical contact, and remaining 6 feet apart 6. Update resident, family, and resident representatives as needed Outcome: Progressing Problem: Lack of Knowledge: Goal: Ability to develop a pain control plan will improve Outcome: Progressing Goal: Ability to identify pain intensity on a pain scale and rate it consistently will improve Outcome: Progressing Goal: Ability to notify healthcare provider of pain before it becomes unmanageable or unbearable will improve Outcome: Progressing Problem: Medication: Goal: Satisfaction with pain management regimen will improve Outcome: Progressing Problem: Sensory: Goal: Ability to identify factors that increase the pain will improve Outcome: Progressing Goal: Pain level will decrease Outcome: Progressing Problem: Activity: Goal: Ability to return to normal activity level will improve Outcome: Progressing Problem: Lack of Knowledge: Goal: Knowledge of the prescribed therapeutic regimen will improve Outcome: Progressing Problem: Coping: Goal: Ability to cope will improve Outcome: Progressing Problem: Health Behavior: Goal: Identification of resources available to assist in meeting health care needs will improve Outcome: Progressing Problem: Sensory: Goal: Pain level will decrease Outcome: Progressing Goals: Clinical Goals for the Shift: stablilize BP; pain and nausea control TIC MAINTENANCE TECHNICIAN * Plan of Care - Nicole Ramirez RN - 08/16/2022 5:19 AM CST Patient reports right flank pain rated 6, declined pain medication. No nausea. Good appetite. Up adlib. Urine yellow, cloudy. TIC MAINTENANCE TECHNICIAN * Plan of Care - Christina Lilly RN - 08/15/2022 7:01 PM CST Goals: Clinical Goals for the Shift: stablilize BP; pain and nausea control Summary: BP was elevated on arrival. PRN pain and nausea medication given. BP now stable and pt reports pain and nausea relief Problem: Facility Isolation Psychosocial Wellbeing Description: Resident at risk for psychosocial wellbeing concern related to medical and visitation restrictions secondary to COVID-19 Goal: Resident will not show a decline in psychosocial wellbeing or experience adverse effects through next review Description: 1. Educate resident, family, resident representatives, staff and visitors of COVID-19 signs and symptoms and precautions 2. Provide emotional support and allow resident to express feelings, fears, and concerns 3. Observe for psychosocial and mental status changes, document and update high school social studies teacher and MD as needed 4. Provide in room activities of choice if indicated 5. Provide alternative methods of communication with family/visitors 6. Assure resident, family, and resident representatives facility is taking precautions to keep them safe 7. Update resident, family, and resident representatives as needed Outcome: Progressing Problem: COVID-19 Prevention and Monitoring Description: Resident requires monitoring and prevention as they relate to COVID-19 Goal: Resident will show no signs or symptoms of COVID-19 Description: 1. Monitor frequently for potential symptoms including fever and respiratory symptoms 2. Educate resident, family, resident representatives, staff and visitors of COVID-19 signs and symptoms and precautions 3. Remind residents to report if they feel feverish or have symptoms of respiratory infection 4. Reinforce no visitor policy and non-essential health care personnel policy, except for certain compassionate care situations 5. When visitors are necessary and meet exception to no visitor policy, limit to a specified room, encourage social distancing with no handshakes, physical contact, and remaining 6 feet apart 6. Update resident, family, and resident representatives as needed Outcome: Progressing Problem: Lack of Knowledge: Goal: Ability to develop a pain control plan will improve Outcome: Progressing Goal: Ability to identify pain intensity on a pain scale and rate it consistently will improve Outcome: Progressing Goal: Ability to notify healthcare provider of pain before it becomes unmanageable or unbearable will improve Outcome: Progressing Problem: Medication: Goal: Satisfaction with pain management regimen will improve Outcome: Progressing Problem: Sensory: Goal: Ability to identify factors that increase the pain will improve Outcome: Progressing Goal: Pain level will decrease Outcome: Progressing Problem: Activity: Goal: Ability to return to normal activity level will improve Outcome: Progressing Problem: Lack of Knowledge: Goal: Knowledge of the prescribed therapeutic regimen will improve Outcome: Progressing Problem: Coping: Goal: Ability to cope will improve Outcome: Progressing Problem: Health Behavior: Goal: Identification of resources available to assist in meeting health care needs will improve Outcome: Progressing Problem: Sensory: Goal: Pain level will decrease Outcome: Progressing TIC MAINTENANCE TECHNICIAN documented in this encounter Plan of Treatment Not on file documented as of this encounter Procedures Procedure Name Priority Date/Time Associated Diagnosis Comments EGFR Routine 08/18/2022 7:39 AM ROBOTIC MAINTENANCE TECHNICIAN DIFFERENTIAL AUTO Routine 08/18/2022 7:3 9 AM ROBOTIC MAINTENANCE TECHNICIAN CBC WITH AUTO DIFFERENTIAL Routine 08/18/2022 7:39 AM ROBOTIC MAINTENANCE TECHNICIAN MAGNESIUM Routine 08/18/2022 7:39 AM ROBOTIC MAINTENANCE TECHNICIAN COMPREHENSIVE METABOLIC PANEL Routine 08/18/2022 7:39 AM ROBOTIC MAINTENANCE TECHNICIAN EGFR Routine 08/17/2022 6:50 AM ROBOTIC MAINTENANCE TECHNICIAN DIFFERENTIAL AUTO Routine 08/17/2022 6:5 0 AM ROBOTIC MAINTENANCE TECHNICIAN CBC WITH AUTO DIFFERENTIAL Routine 08/17/2022 6:50 AM ROBOTIC MAINTENANCE TECHNICIAN MAGNESIUM Routine 08/17/2022 6:50 AM ROBOTIC MAINTENANCE TECHNICIAN COMPREHENSIVE METABOLIC PANEL Routine 08/17/2022 6:50 AM ROBOTIC MAINTENANCE TECHNICIAN EGFR Routine 08/16/2022 7:46 AM ROBOTIC MAINTENANCE TECHNICIAN DIFFERENTIAL AUTO Routine 08/16/2022 7:4 6 AM ROBOTIC MAINTENANCE TECHNICIAN CBC WITH AUTO DIFFERENTIAL Routine 08/16/2022 7:46 AM ROBOTIC MAINTENANCE TECHNICIAN BLOOD CULTURE Routine 08/16/2022 7:46 AM ROBOTIC MAINTENANCE TECHNICIAN MAGNESIUM Routine 08/16/2022 7:46 AM ROBOTIC MAINTENANCE TECHNICIAN COMPREHENSIVE METABOLIC PANEL Routine 08/16/2022 7:46 AM ROBOTIC MAINTENANCE TECHNICIAN BLOOD CULTURE Routine 08/15/2022 4:07 PM ROBOTIC MAINTENANCE TECHNICIAN INFLUENZA A/B, RSV, AND COVID-19 PCR Routine 08/15/2022 3:28 PM ROBOTIC MAINTENANCE TECHNICIAN CT ABDOMEN PELVIS WO CONTRAST ED 08/15/2022 11:30 AM ROBOTIC MAINTENANCE TECHNICIAN URINALYSIS AND REFLEX TO MICROSCOPIC AND CULTURE STAT 08/15/2022 10:25 AM ROBOTIC MAINTENANCE TECHNICIAN URINALYSIS, MICROSCOPIC ONLY STAT 08/15/2022 10:25 AM ROBOTIC MAINTENANCE TECHNICIAN URINE CULTURE STAT 08/15/2022 10:25 AM ROBOTIC MAINTENANCE TECHNICIAN EGFR STAT 08/15/2022 9:47 AM ROBOTIC MAINTENANCE TECHNICIAN DIFFERENTIAL AUTO STAT 08/15/2022 9:4 7 AM ROBOTIC MAINTENANCE TECHNICIAN CBC WITH AUTO DIFFERENTIAL STAT 08/15/2022 9:47 AM ROBOTIC MAINTENANCE TECHNICIAN LIPASE STAT 08/15/2022 9:47 AM ROBOTIC MAINTENANCE TECHNICIAN COMPREHENSIVE METABOLIC PANEL STAT 08/15/2022 9:47 AM ROBOTIC MAINTENANCE TECHNICIAN documented in this encounter Results * eGFR (08/18/2022 7:39 AM ROBOTIC MAINTENANCE TECHNICIAN) Pathologist [facility] eGFR 114 mL/min/1. 73 m2 [facility] WILKINSON Comment: Interpretive Data Reference Interval Normal ?>/= [...] interpretive data was last reviewed 2021. Blood 08/18/2022 7:39 AM ROBOTIC MAINTENANCE TECHNICIAN 08/18/2022 8:07 AM ROBOTIC MAINTENANCE TECHNICIAN us Juliette Thomas MD LAB BLOOD ORDERABLES Final Resu lt [facility] [address] [facility] Department [place] [address] * Differential, auto (08/18/2022 7:39 AM ROBOTIC MAINTENANCE TECHNICIAN) Neutrophil abs 4.9 1.7 - 6.5 K/cumm [facility] Imm gran abs 0.0 0.0 - 0.1 K/cumm [facility] Lymphocyte abs 1.9 0.8 - 3.3 K/cumm [facility] Monocyte abs 0.6 0.2 - 0.8 K/cumm [facility] Eosinophil abs 0.1 0.0 - 0.5 K/cumm [facility] Basophil abs 0.0 0.0 - 0.1 K/cumm [facility] Neutrophil pct 64.5 % [facility] Comment: Interpretive Data Percent cell count reference ranges are not reported, since discordance with absolute values may lead to misinterpretation of CBC data. Current Interpretive Data was last revised on 2017. Imm gran pct 0.3 % [facility] Comment: Interpretive Data Percent cell count reference ranges are not reported, since discordance with absolute values may lead to misinterpretation of CBC data. Current Interpretive Data was last revised on 2017. Lymphocyte pct 25.4 % [facility] Comment: Interpretive Data Percent cell count reference ranges are not reported, since discordance with absolute values may lead to misinterpretation of CBC data. Current Interpretive Data was last revised on 2017. Monocyte pct 8.3 % [facility] Comment: Interpretive Data Percent cell count reference ranges are not reported, since discordance with absolute values may lead to misinterpretation of CBC data. Current Interpretive Data was last revised on 2017. Eosinophil pct 1.2 % [facility] Comment: Interpretive Data Percent cell count reference ranges are not reported, since discordance with absolute values may lead to misinterpretation of CBC data. Current Interpretive Data was last revised on 2017. Basophil pct 0.3 % [facility] Comment: Interpretive Data Percent cell count reference ranges are not reported, since discordance with absolute values may lead to misinterpretation of CBC data. Current Interpretive Data was last revised on 2017. Blood 08/18/2022 7:39 AM ROBOTIC MAINTENANCE TECHNICIAN 08/18/2022 8:07 AM ROBOTIC MAINTENANCE TECHNICIAN us Juliette Tohmas MD LAB BLOOD ORDERABLES Final Resu lt [facility] [address] [facility] [place] [address] * Magnesium (08/18/2022 7:39 AM ROBOTIC MAINTENANCE TECHNICIAN) [facility] Magnesium 2.1 1.4 - 2.5 mg/dL [facility] Blood 08/18/2022 7:39 AM ROBOTIC MAINTENANCE TECHNICIAN 08/18/2022 8:07 AM ROBOTIC MAINTENANCE TECHNICIAN us Juliette Thomas MD LAB BLOOD ORDERABLES Final Resu lt Performing Organization Address City/State/[facility] Co de Phone Number [facility] [address] [place] [address] * (ABNORMAL) Comprehensive metabolic panel (08/18/2022 7:39 AM ROBOTIC MAINTENANCE TECHNICIAN) [facility] Sodium 138 135 - 145 mmol/L [facility] Potassium, pl 3.6 3.3 - 4.9 mmol/L [facility] Chloride 104 97 - 110 mmol/L [facility] CO2 26 22 - 32 mmol/L [facility] Anion gap 8 2 - 15 mmol/L [facility] BUN 7(L) 8 - 25 mg/dL [facility] Creatinine 0.60 0.60 - 1.10 mg/dL [facility] Glucose 93 70 - 199 mg/dL [facility] Comment: Interpretive Data Fasting glucose >/= 126 [...] classification and Diagnosis of Diabetes Diabetes Care 2017;40 (Suppl. 1):S11. Current interpretive data was last revised 2017. Calcium 9.5 8.5 - 10.3 mg/dL [facility] Bilirubin, total 0.5 0.1 - 1.2 mg/dL [facility] Protein, pl 6.9 6.5 - 8.5 g/dL [facility] Albumin 4.0 3.5 - 5.0 g/dL [facility] Alk phos 86 40 - 130 Units/L [facility] ALT 23 7 - 45 Units/L [facility] AST 21 10 - 45 Units/L [facility] Blood 08/18/2022 7:39 AM ROBOTIC MAINTENANCE TECHNICIAN 08/18/2022 8:07 AM ROBOTIC MAINTENANCE TECHNICIAN Juliette Thomas MD LAB BLOOD ORDERABLES Final Resu lt Performing Organization Address [facility] Co de Phone Number CHARLEEN [address] [place] [employer] [place] [address] * CBC with auto differential (08/18/2022 7:39 AM ROBOTIC MAINTENANCE TECHNICIAN) WBC 7.6 3.8 - 9.9 K/cumm [facility] Hgb 13.8 11.9 - 15.5 g/dL [facility] Hct 40.0 35.6 - 45.5 % [facility] Plt 256 150 - 400 K/cumm [facility] MPV 9.7 9.1 - 12.3 fL [facility] RBC 4.45 3.90 - 5.20 M/cumm [facility] MCV 89.9 81.3 - 96.4 fL [facility] MCH 31.0 27.1 - 33.3 pg [facility] MCHC 34.5 32.3 - 35.7 g/dL [facility] RDW CV 12.4 11.1 - 14.9 % [facility] RDW SD 40.8 35.7 - 48.1 fL [facility] NRBC abs 0.00 0.00 - 0.01 K/cumm [facility] Blood 08/18/2022 7:39 AM ROBOTIC MAINTENANCE TECHNICIAN 08/18/2022 8:07 AM ROBOTIC MAINTENANCE TECHNICIAN Juliette Thomas MD LAB BLOOD ORDERABLES Final Resu lt Performing Organization Address [facility] Co de Phone Number CHARLEEN [address] [place] [address] * eGFR (08/17/2022 6:50 AM ROBOTIC MAINTENANCE TECHNICIAN) Pathologist [facility] eGFR 119 mL/min/1. 73 m2 [facility] Comment: Interpretive Data Reference Interval Normal ?>/= [...] interpretive data was last reviewed 2021. Blood 08/17/2022 6:50 AM ROBOTIC MAINTENANCE TECHNICIAN 08/17/2022 7:17 AM ROBOTIC MAINTENANCE TECHNICIAN us Juliette Thomas MD LAB BLOOD ORDERABLES Final Resu lt [facility] [address] [facility] Department [place] [address] * (ABNORMAL) Differential, auto (08/17/2022 6:50 AM ROBOTIC MAINTENANCE TECHNICIAN) Neutrophil abs 8.1(H) 1.7 - 6.5 K/cumm [facility] Imm gran abs 0.0 0.0 - 0.1 K/cumm [facility] Lymphocyte abs 1.3 0.8 - 3.3 K/cumm [facility] Monocyte abs 0.5 0.2 - 0.8 K/cumm [facility] Eosinophil abs 0.0 0.0 - 0.5 K/cumm [facility] Basophil abs 0.0 0.0 - 0.1 K/cumm [facility] Neutrophil pct 81.3 % [facility] Comment: Interpretive Data Percent cell count reference ranges are not reported, since discordance with absolute values may lead to misinterpretation of CBC data. Current Interpretive Data was last revised on 2017. Imm gran pct 0.3 % [facility] Comment: Interpretive Data Percent cell count reference ranges are not reported, since discordance with absolute values may lead to misinterpretation of CBC data. Current Interpretive Data was last revised on 2017. Lymphocyte pct 12.7 % [facility] Comment: Interpretive Data Percent cell count reference ranges are not reported, since discordance with absolute values may lead to misinterpretation of CBC data. Current Interpretive Data was last revised on 2017. Monocyte pct 5.0 % [facility] Comment: Interpretive Data Percent cell count reference ranges are not reported, since discordance with absolute values may lead to misinterpretation of CBC data. Current Interpretive Data was last revised on 2017. Eosinophil pct 0.3 % [facility] Comment: Interpretive Data Percent cell count reference ranges are not reported, since discordance with absolute values may lead to misinterpretation of CBC data. Current Interpretive Data was last revised on 2017. Basophil pct 0.4 % [facility] Comment: Interpretive Data Percent cell count reference ranges are not reported, since discordance with absolute values may lead to misinterpretation of CBC data. Current Interpretive Data was last revised on 2017. Blood 08/17/2022 6:50 AM ROBOTIC MAINTENANCE TECHNICIAN 08/17/2022 7:17 AM ROBOTIC MAINTENANCE TECHNICIAN us Juliette Thomas MD LAB BLOOD ORDERABLES Final Resu lt [facility] [address] [facility] Department [place] [address] * Magnesium (08/17/2022 6:50 AM ROBOTIC MAINTENANCE TECHNICIAN) Magnesium 2.2 1.4 - 2.5 mg/dL [facility] Blood 08/17/2022 6:50 AM ROBOTIC MAINTENANCE TECHNICIAN 08/17/2022 7:17 AM ROBOTIC MAINTENANCE TECHNICIAN Juliette Thomas MD LAB BLOOD ORDERABLES Final Resu lt [facility] [address] [facility] Department [place] [address] * (ABNORMAL) Comprehensive metabolic panel (08/17/2022 6:50 AM ROBOTIC MAINTENANCE TECHNICIAN) Pathologist [facility] Sodium 137 135 - 145 mmol/L [facility] Potassium, pl 4.3 3.3 - 4.9 mmol/L [facility] Comment:Delta - Results Revi ewed Chloride 104 97 - 110 mmol/L [facility] CO2 24 22 - 32 mmol/L [facility] Anion gap 9 2 - 15 mmol/L [facility] BUN 6(L) 8 - 25 mg/dL [facility] Creatinine 0.50(L) 0.60 - 1.10 mg/dL [facility] Glucose 122 70 - 199 mg/dL [facility] Comment: Interpretive Data Fasting glucose >/= 126 [...] classification and Diagnosis of Diabetes Diabetes Care 2017;40 (Suppl. 1):S11. Current interpretive data was last revised 2017. Calcium 9.3 8.5 - 10.3 mg/dL [facility] Bilirubin, total 0.3 0.1 - 1.2 mg/dL [facility] Protein, pl 7.0 6.5 - 8.5 g/dL [facility] Albumin 4.1 3.5 - 5.0 g/dL [facility] Alk phos 88 40 - 130 Units/L [facility] ALT 22 7 - 45 Units/L [facility] AST 21 10 - 45 Units/L [facility] Blood 08/17/2022 6:50 AM ROBOTIC MAINTENANCE TECHNICIAN 08/17/2022 7:17 AM ROBOTIC MAINTENANCE TECHNICIAN Juliette Thomas MD LAB BLOOD ORDERABLES Final Resu lt Performing Organization Address [facility] de Phone Number [facility] [address] [facility] [employer] [place] [address] * CBC with auto differential (08/17/2022 6:50 AM ROBOTIC MAINTENANCE TECHNICIAN) Pathologist [facility] WBC 9.9 3.8 - 9.9 K/cumm [facility] Hgb 14.4 11.9 - 15.5 g/dL [facility] Hct 41.4 35.6 - 45.5 % [facility] Plt 227 150 - 400 K/cumm [facility] MPV 9.8 9.1 - 12.3 fL [facility] RBC 4.58 3.90 - 5.20 M/cumm [facility] MCV 90.4 81.3 - 96.4 fL [facility] MCH 31.4 27.1 - 33.3 pg [facility] MCHC 34.8 32.3 - 35.7 g/dL [facility] RDW CV 12.7 11.1 - 14.9 % [facility] RDW SD 41.9 35.7 - 48.1 fL [facility] NRBC abs 0.00 0.00 - 0.01 K/cumm [facility] Blood 08/17/2022 6:50 AM ROBOTIC MAINTENANCE TECHNICIAN 08/17/2022 7:17 AM ROBOTIC MAINTENANCE TECHNICIAN Juliette Thomas MD LAB BLOOD ORDERABLES Final Resu lt Performing Organization Address [facility] de Phone Number [facility] [address] [facility] [place] [address] * eGFR (08/16/2022 7:46 AM ROBOTIC MAINTENANCE TECHNICIAN) eGFR 114 mL/min/1. 73 m2 [facility] Comment: Interpretive Data Reference Interval Normal ?>/= [...] interpretive data was last reviewed 2021. Blood 08/16/2022 7:46 AM ROBOTIC MAINTENANCE TECHNICIAN 08/16/2022 9:53 AM ROBOTIC MAINTENANCE TECHNICIAN us Juliette Thomas MD LAB BLOOD ORDERABLES Final Resu lt [facility] [address] [facility] Department [place] [address] * (ABNORMAL) Differential, auto (08/16/2022 7:46 AM ROBOTIC MAINTENANCE TECHNICIAN) Pathologist [facility] Neutrophil abs 7.0(H) 1.7 - 6.5 K/cumm [facility] Imm gran abs 0.0 0.0 - 0.1 K/cumm [facility] Lymphocyte abs 2.0 0.8 - 3.3 K/cumm [facility] Monocyte abs 0.9(H) 0.2 - 0.8 K/cumm [facility] Eosinophil abs 0.1 0.0 - 0.5 K/cumm [facility] Basophil abs 0.0 0.0 - 0.1 K/cumm [facility] Neutrophil pct 70.0 % [facility] Comment: Interpretive Data Percent cell count reference ranges are not reported, since discordance with absolute values may lead to misinterpretation of CBC data. Current Interpretive Data was last revised on 2017. Imm gran pct 0.3 % [facility] Comment: Interpretive Data Percent cell count reference ranges are not reported, since discordance with absolute values may lead to misinterpretation of CBC data. Current Interpretive Data was last revised on 2017. Lymphocyte pct 19.9 % [facility] Comment: Interpretive Data Percent cell count reference ranges are not reported, since discordance with absolute values may lead to misinterpretation of CBC data. Current Interpretive Data was last revised on 2017. Monocyte pct 8.8 % [facility] Comment: Interpretive Data Percent cell count reference ranges are not reported, since discordance with absolute values may lead to misinterpretation of CBC data. Current Interpretive Data was last revised on 2017. Eosinophil pct 0.7 % [facility] Comment: Interpretive Data Percent cell count reference ranges are not reported, since discordance with absolute values may lead to misinterpretation of CBC data. Current Interpretive Data was last revised on 2017. Basophil pct 0.3 % [facility] Comment: Interpretive Data Percent cell count reference ranges are not reported, since discordance with absolute values may lead to misinterpretation of CBC data. Current Interpretive Data was last revised on 2017. Blood 08/16/2022 7:46 AM ROBOTIC MAINTENANCE TECHNICIAN 08/16/2022 9:53 AM ROBOTIC MAINTENANCE TECHNICIAN us Juliette Thomas MD LAB BLOOD ORDERABLES Final Resu lt [facility] [address] [facility] Department [place] [address] * (ABNORMAL) Comprehensive metabolic panel (08/16/2022 7:46 AM ROBOTIC MAINTENANCE TECHNICIAN) Sodium 134(L) 135 - 145 mmol/L [facility] Potassium, pl 3.2(L) 3.3 - 4.9 mmol/L [facility] Chloride 103 97 - 110 mmol/L [facility] CO2 25 22 - 32 mmol/L [facility] Anion gap 6 2 - 15 mmol/L [facility] BUN 11 8 - 25 mg/dL [facility] Creatinine 0.60 0.60 - 1.10 mg/dL [facility] Glucose 94 70 - 199 mg/dL [facility] Comment: Interpretive Data Fasting glucose >/= 126 [...] classification and Diagnosis of Diabetes Diabetes Care 2017;40 (Suppl. 1):S11. Current interpretive data was last revised 2017. Calcium 8.7 8.5 - 10.3 mg/dL [facility] Bilirubin, total 0.4 0.1 - 1.2 mg/dL [facility] Protein, pl 6.2(L) 6.5 - 8.5 g/dL [facility] Albumin 3.6 3.5 - 5.0 g/dL [facility] Alk phos 111 40 - 130 Units/L [facility] ALT 16 7 - 45 Units/L [facility] AST 14 10 - 45 Units/L [facility] Blood 08/16/2022 7:46 AM ROBOTIC MAINTENANCE TECHNICIAN 08/16/2022 9:53 AM ROBOTIC MAINTENANCE TECHNICIAN us Juliette Thomas MD LAB BLOOD ORDERABLES Final Resu lt [facility] [address] [facility] Department of Laboratories [place], [place] [id number] * (ABNORMAL) CBC with auto differential (08/16/2022 7:46 AM ROBOTIC MAINTENANCE TECHNICIAN) WBC 10.0(H) 3.8 - 9.9 K/cumm [facility] Hgb 12.9 11.9 - 15.5 g/dL [facility] Hct 37.4 35.6 - 45.5 % [facility] Plt 218 150 - 400 K/cumm [facility] MPV 10.0 9.1 - 12.3 fL [facility] RBC 4.13 3.90 - 5.20 M/cumm [facility] MCV 90.6 81.3 - 96.4 fL [facility] MCH 31.2 27.1 - 33.3 pg [facility] MCHC 34.5 32.3 - 35.7 g/dL [facility] RDW CV 12.9 11.1 - 14.9 % [facility] RDW SD 42.4 35.7 - 48.1 fL [facility] NRBC abs 0.00 0.00 - 0.01 K/cumm [facility] Blood 08/16/2022 7:46 AM ROBOTIC MAINTENANCE TECHNICIAN 08/16/2022 9:53 AM ROBOTIC MAINTENANCE TECHNICIAN Juliette Thomas MD LAB BLOOD ORDERABLES Final Resu lt Performing Organization Address City/[facility]/ZIP Co de Phone Number [address] [place] [address] * Magnesium (08/16/2022 7:46 AM ROBOTIC MAINTENANCE TECHNICIAN) Magnesium 2.0 1.4 - 2.5 mg/dL [facility] Blood 08/16/2022 7:46 AM ROBOTIC MAINTENANCE TECHNICIAN 08/16/2022 9:53 AM ROBOTIC MAINTENANCE TECHNICIAN Jo Ann Tolbert NP LAB BLOOD ORDERABLES Sandra l Result Performing Organization Address [facility] Co de Phone Number [address] [employer] [place] [address] * Blood culture Blood (08/16/2022 7:46 AM ROBOTIC MAINTENANCE TECHNICIAN) Report Final Report: No growth [facility] Comment:Testing performed by : [facility], [address] [facility], [place]., [address] Blood 08/16/2022 7:46 AM ROBOTIC MAINTENANCE TECHNICIAN 08/16/2022 1:11 PM ROBOTIC MAINTENANCE TECHNICIAN Narrative [facility] - 08/20/2022 4:00 PM ROBOTIC MAINTENANCE TECHNICIAN From a different site than #1. 1. ?Blood cultures are incubated for 4 days on a continuously monitored blood culture system. The first report of a negative culture is issued within 24 hours of receipt of the specimen in the laboratory. 2. ?Positive culture results are reported as soon as they are detected. 3. ?The most important factor for detection of microbes in the setting of bloodstream infection is the volume of blood submitted for culture. Failure to collect an optimal blood volume can result in false negative blood cultures. For pediatric patients, the recommended blood volume to collect is 1 mL of blood per year of patient age (up to 20 mL) per blood culture set. For adult patients, 20 mL of blood, divided equally between aerobic and anaerobic blood culture bottles, is recommended for each blood culture set. 4. ?For blood cultures with Gram-positive cocci, a rapid molecular test for organism identification may be performed using the [email or web address] Gram-Positive Blood Culture Assay. This assay detects microbial DNA in positive blood culture broth via hybridization of target DNA to capture oligonucleotides on a microarray. This assay has been cleared by the [place] Food and Drug Administration and its performance characteristics have been verified by the [facility] Microbiology Laboratory. 5. ?For questions about this culture, contact the Microbiology Laboratory at [phone]. Interpretive data was last revised on 2019. Juliette Thomas MD LAB MICROBIOLOGY - GENERAL [facility] Final Result [facility] WILKINSON [address] [facility] Department [place] [address] * Blood culture Blood Antecubital, right (08/15/2022 4:07 PM ROBOTIC MAINTENANCE TECHNICIAN) Report Final Report: No growth [facility]IN[facility] Comment:Testing performed by : [facility], [address] [place] [address] Blood (Antecubital, right) 08/15/2022 4:07 PM ROBOTIC MAINTENANCE TECHNICIAN 08/15/2022 8:57 PM ROBOTIC MAINTENANCE TECHNICIAN Narrative [facility] WILKINSON - 08/20/2022 7:00 AM ROBOTIC MAINTENANCE TECHNICIAN 1. ?Blood cultures are incubated for 4 days on a continuously monitored blood culture system. The first report of a negative culture is issued within 24 hours of receipt of the specimen in the laboratory. 2. ?Positive culture results are reported as soon as they are detected. 3. ?The most important factor for detection of microbes in the setting of bloodstream infection is the volume of blood submitted for culture. Failure to collect an optimal blood volume can result in false negative blood cultures. For pediatric patients, the recommended blood volume to collect is 1 mL of blood per year of patient age (up to 20 mL) per blood culture set. For adult patients, 20 mL of blood, divided equally between aerobic and anaerobic blood culture bottles, is recommended for each blood culture set. 4. ?For blood cultures with Gram-positive cocci, a rapid molecular test for organism identification may be performed using the [email or web address] Gram-Positive Blood Culture Assay. This assay detects microbial DNA in positive blood culture broth via hybridization of target DNA to capture oligonucleotides on a microarray. This assay has been cleared by the [place] Food and Drug Administration and its performance characteristics have been verified by the [facility] Microbiology Laboratory. 5. ?For questions about this culture, contact the Microbiology Laboratory at [phone]. Interpretive data was last revised on 2019. Juliette Thomas MD LAB MICROBIOLOGY - [facility]AL [facility] Final Result [facility] [address] [facility] Department [place] [address] * Influenza A/B, RSV, and COVID-19 PCR Nasopharyngeal (08/15/2022 3:28 PM ROBOTIC MAINTENANCE TECHNICIAN) COVID-19 RNA Negative Negative [facility] Influenza A RNA Negative Negative [facility] Influenza B RNA Negative Negative [facility] RSV RNA Negative Negative [facility] Comment: Interpretive data: This test is performed using the [employer] Xpert Xpress CoV-2/Flu/RSV plus assay. This is a multiplex, real-time reverse transcriptase PCR assay intended for the qualitative detection of nucleic acid from SARS-CoV-2, influenza A, influenza B, and respiratory syncytial virus. This assay has been reviewed by the FDA for Emergency Use Authorization (EUA). The performance characteristics have been verified by the performing laboratory. Results must be considered in the clinical context, and a negative result does not rule out infection. Interpretive Data last revised 2021. Nasopharyngeal 08/15/2022 3: 28 PM ROBOTIC MAINTENANCE TECHNICIAN 08/15/2022 3:30 PM ROBOTIC MAINTENANCE TECHNICIAN Narrative CHARLEEN WILKINSON - 08/15/2022 4:10 PM ROBOTIC MAINTENANCE TECHNICIAN Is the Patient experiencing symptoms consistent with COVID?->No Reason for testing?->Bed placement or semi-private room Juliette Thomas MD LAB MICROBIOLOGY - GENERAL TOBY BILLY Final Result CHARLEEN WILKINSON [address] [facility] Department [place] [address] * CT Abdomen Pelvis WO Contrast (08/15/2022 11:30 AM ROBOTIC MAINTENANCE TECHNICIAN) Anatomical Region Laterality Modality Body N/A Computed Tomogra phy 08/15/2022 11:3 3 AM ROBOTIC MAINTENANCE TECHNICIAN Narrative 08/15/2022 11:43 AM ROBOTIC MAINTENANCE TECHNICIAN EXAM DESCRIPTION: ?? CT ABDOMEN PELVIS WO CONTRAST REASON FOR STUDY: ?? Flank pain, kidney stone suspected ?? Pt states onset of R sided flank pain yesterday. Pt states hx of stents due to stones. ? Surg hx: , hysterectomy ? TECHNIQUE: CT scan of the abdomen and pelvis performed without intravenous and ??without ??oral contrast using helical scanning technique. Reconstructed coronal and sagittal MPR images reviewed. All images stored on PACS. ?? Automated exposure control was used as a dose optimization technique for this examination. COMPARISON: ?? 06/25/2022 FINDINGS: The sensitivity for detection of visceral lesions is diminished without the use of intravenous contrast. LOWER CHEST: ?? No significant pulmonary abnormalities. No effusion. LIVER: ?? The liver is normal in size. ??There is likely hepatic steatosis. ??No definite liver lesion is seen. GALLBLADDER: ?? Gallbladder is partially distended. ??Sludge or cholelithiasis. ?? No wall thickening, stranding or pericholecystic fluid to suggest acute cholecystitis. BILE DUCTS: ?? No gross biliary ductal dilatation. SPLEEN: ?? Spleen is normal in size. PANCREAS: ?? Pancreas is normal in size. ??No significant peripancreatic stranding or main ductal dilatation. ADRENALS: ?? Normal. KIDNEYS/URINARY TRACT: ?? The kidneys are normal in size mild right perinephric and periureteral stranding. ??There is no associated right hydronephrosis. ?? There are possible punctate stones within the distal right ureter (122). ??No right renal stone is seen. ??No left hydronephrosis or nephrolithiasis. ??The urinary bladder is partially distended without substantial thickening or stranding. GI: ?? Scattered colonic diverticula without CT evidence of diverticulitis. ?? Appendix is nondilated. ??The small bowel is nondilated minimal. ??Borderline thickening of loops of jejunum within the left upper quadrant, likely due to under distension. ??No evidence of bowel obstruction. PERITONEUM: ?? No free air. ??No ascites. ??No mesenteric lymphadenopathy. RETROPERITONEUM: ?? No retroperitoneal or inguinal lymphadenopathy is seen. REPRODUCTIVE: ?? Uterus is absent. ??Grossly stable 3 cm left ovarian cyst. VASCULATURE: ?? Aorta is normal caliber. MUSCULOSKELETAL: ?? Bone windows demonstrate no suspicious lytic or sclerotic lesion. ??No acute fracture seen. OTHER: ?? No other abnormality. IMPRESSION: 1. ?? Mild right perinephric/periureteral stranding. ??This is evidence for inflammation which may be due to possible punctate stones within the distal right ureter or pyelonephritis. ??Recommend correlation with urinalysis. ??No right hydronephrosis. REFERENCE: Unless otherwise specified, no follow-up imaging is recommended for incidental renal and adrenal lesions per consensus recommendations based on imaging criteria. Further lab evaluation could be pursued based on clinical findings. Management of the Incidental Renal Mass on CT: A White Paper of the ACR Incidental Findings Committee. J Am Harsi Radiol. 2018 Sep;15(2):264-273. Management of Incidental Adrenal Masses: A White Paper of the ACR Incidental Findings Committee. J Am Haris Radiol. 2017 Mar;14(8):7836-7352. THIS IS AN ELECTRONICALLY VERIFIED FINAL REPORT 08/15/2022 11:43 AM - Electronically signed by ??Laci BAILEY D: ??08/15/2022 11:43 AM T: Report ID: [id number] Reading Location: ??[id number] Procedure Note Laci Alonso MD - 08/15/2022 EXAM DESCRIPTION: CT ABDOMEN PELVIS WO CONTRAST REASON FOR STUDY: Flank pain, kidney stone suspected Pt states onset of R sided flank pain yesterday. Pt states hx of stentsdue to stones. Surg hx: , hysterectomy TECHNIQUE: CT scan of the abdomen and pelvis performed without intravenousand without oral contrast using helical scanning technique. Reconstructed coronal and sagittal MPR images reviewed. All images stored on PACS. Automated exposure control was used as a dose optimization technique forthis examination. COMPARISON: 06/25/2022 FINDINGS: The sensitivity for detection of visceral lesions is diminished without the use of intravenous contrast. LOWER CHEST: No significant pulmonary abnormalities. No effusion. LIVER: The liver is normal in size. There is likely hepatic steatosis.No definite liver lesion is seen. GALLBLADDER: Gallbladder is partially distended. Sludge orcholelithiasis. No wall thickening, stranding or pericholecystic fluid to suggest acute cholecystitis. BILE DUCTS: No gross biliary ductal dilatation. SPLEEN: Spleen is normal in size. PANCREAS: Pancreas is normal in size. No significant peripancreatic stranding or main ductal dilatation. ADRENALS: Normal. KIDNEYS/URINARY TRACT: The kidneys are normal in size mild rightperinephric and periureteral stranding. There is no associated right hydronephrosis. There are possible punctate stones within the distal right ureter (122).No right renal stone is seen. No left hydronephrosis or nephrolithiasis.The urinary bladder is partially distended without substantial thickening or stranding. GI: Scattered colonic diverticula without CT evidence of diverticulitis. Appendix is nondilated. The small bowel is nondilated minimal.Borderline thickening of loops of jejunum within the left upper quadrant, likely dueto under distension. No evidence of bowel obstruction. PERITONEUM: No free air. No ascites. No mesenteric lymphadenopathy. RETROPERITONEUM: No retroperitoneal or inguinal lymphadenopathy is seen. REPRODUCTIVE: Uterus is absent. Grossly stable 3 cm left ovarian cyst. VASCULATURE: Aorta is normal caliber. MUSCULOSKELETAL: Bone windows demonstrate no suspicious lytic orsclerotic lesion. No acute fracture seen. OTHER: No other abnormality. IMPRESSION: 1. Mild right perinephric/periureteral stranding. This is evidence for inflammation which may be due to possible punctate stones within thedistal right ureter or pyelonephritis. Recommend correlation with urinalysis.No right hydronephrosis. REFERENCE: Unless otherwise specified, no follow-up imaging is recommendedfor incidental renal and adrenal lesions per consensus recommendations basedon imaging criteria. Further lab evaluation could be pursued based onclinical findings. Management of the Incidental Renal Mass on CT: A White Paper of the ACR Incidental Findings Committee. J Am Haris Radiol. 2018 Sep;15(2):264-273. Management of Incidental Adrenal Masses: A White Paper of the ACRIncidental Findings Committee. J Am Haris Radiol. 2017 Mar;14(8):2764-5600. THIS IS AN ELECTRONICALLY VERIFIED FINAL REPORT 08/15/2022 11:43 AM - Electronically signed by Laci Alonso M.D. AG T: Report ID: [id number] Reading Location: [place] [address] Rocky Rosen NP IMG [address] PROCEDURES Final Result * (ABNORMAL) Urine culture Urine (08/15/2022 10:25 AM ROBOTIC MAINTENANCE TECHNICIAN) Report Final Report: Greater than or equal to 100,000 colonies/mL of Escherichia coli Plus growth of clinically insignificant bacterial kalyani. (.) CHARLEEN WILKINSON Comment:Testing performed by : [facility], [address] [place] [address] Organism ESCHERICHIA COLI CHARLEEN Organism PLUS GROWTH OF CLINICALLY INSIGNIFICANT KALYANI. CHARLEEN WILKINSON Urine 08/15/2022 10:2 5 AM ROBOTIC MAINTENANCE TECHNICIAN 08/15/2022 1:12 PM ROBOTIC MAINTENANCE TECHNICIAN Narrative CHARLEEN - 08/17/2022 2:18 PM ROBOTIC MAINTENANCE TECHNICIAN Urine culture reflexed based upon urinalysis results. Testing performed by [facility] Microbiology Laboratory ([phone]) Organism Antibiotic Method Susceptibility Escherichia coli Ampicillin INTERPRETATION Resistant Escherichia coli Cefazolin INTERPRETATION Susceptible Escherichia coli Nitrofurantoin INTERPRETATION Susceptible Escherichia coli Gentamicin INTERPRETATION Resistant Escherichia coli Trimethoprim with Sulfamethoxazole IN TERPRETATION Resistant Escherichia coli Meropenem INTERPRETATION Susceptible Escherichia coli Cefepime INTERPRETATION Susceptible Escherichia coli Ceftazidime INTERPRETATION Susceptible Escherichia coli Ceftriaxone INTERPRETATION Susceptible Escherichia coli Piperacillin/Tazobactam INTERPRETATIO N Susceptible Escherichia coli Cephalexin INTERPRETATION Susceptible Escherichia coli Cefuroxime-axetil INTERPRETATION Susceptible Escherichia coli Cefdinir INTERPRETATION Susceptible Escherichia coli Levofloxacin INTERPRETATION Susceptible us Rocky Rosen NP LAB MICROBIOLOGY - GENERAL ORDER ROLANDA Final Result Performing Organization Address [facility] de Phone Number [address] [address] * (ABNORMAL) Urinalysis, microscopic only (08/15/2022 10:25 AM ROBOTIC MAINTENANCE TECHNICIAN) WBC, ur >50(A) 0 - 5 /HPF [facility] RBC, ur >50(A) 0 - 2 /HPF [facility] Epithelial cells, squamous, ur 1-5 0 - 5 /HPF [facility] Mucous, ur Present(A) [facility] Culture Reflex Comment Reflex to urine culture will be performed. [facility] Urine 08/15/2022 10:2 5 AM ROBOTIC MAINTENANCE TECHNICIAN 08/15/2022 10:27 AM ROBOTIC MAINTENANCE TECHNICIAN us Juliette Thomas MD LAB URINE ORDERABLES Final Resu lt Performing Organization Address [facility] de Phone Number [address] [address] * (ABNORMAL) Urinalysis reflex to microscopic and culture Urine (08/15/2022 10:25 AM ROBOTIC MAINTENANCE TECHNICIAN) Color, ur Yellow Yellow [facility] Clarity, ur Cloudy(A) Clear [facility] Specific gravity, ur 1.018 1.003 - 1.030 [facility] pH, urine 5.0 [facility] Protein, ur ql 2+(A) Negative [facility] Glucose, ur ql Negative Negative [facility] Ketones, ur Negative Negative [facility] Bilirubin, ur Negative Negative [facility] Blood, ur 3+(A) Negative [facility] Urobilinogen, ur <2.0 <2.0 mg/dL [facility] Nitrite, ur Positive(A) Negative [facility] Leukocyte esterase, ur 4+(A) Negative [facility] UA reflex comment Reflex to microscopic UA will be performed. [facility] Urine 08/15/2022 10:2 5 AM ROBOTIC MAINTENANCE TECHNICIAN 08/15/2022 10:27 AM ROBOTIC MAINTENANCE TECHNICIAN Narrative CHARLEEN - 08/15/2022 10:34 AM ROBOTIC MAINTENANCE TECHNICIAN ?? Urine pH is affected by diet, medications, systemic acid-base disturbances, and renal tubular function. ??pH may affect urinary stone formation. ??For example, urine pH below 6.0 may help reduce the tendency for calcium phosphate stones and pH greater than 6.0 may reduce the tendency for uric acid stone formation. Source: [facility] [employer]. Last revised 08-22-2017 Juliette Thomas MD LAB MICROBIOLOGY - GENERAL TOBY BILLY Final Result CHARLEEN [address] [facility] Department [place] [address] * eGFR (08/15/2022 9:47 AM ROBOTIC MAINTENANCE TECHNICIAN) eGFR 110 mL/min/1. 73 m2 CHARLEEN Comment: Interpretive Data Reference Interval Normal ?>/= [...] interpretive data was last reviewed 2021. Blood 08/15/2022 9:47 AM ROBOTIC MAINTENANCE TECHNICIAN 08/15/2022 9:50 AM ROBOTIC MAINTENANCE TECHNICIAN us Juliette Thomas MD LAB BLOOD ORDERABLES Final Resu lt CHARLEEN [address] [facility] Department [place] [address] * (ABNORMAL) Differential, auto (08/15/2022 9:47 AM ROBOTIC MAINTENANCE TECHNICIAN) Neutrophil abs 8.9(H) 1.7 - 6.5 K/cumm [facility] Imm gran abs 0.0 0.0 - 0.1 K/cumm [facility] Lymphocyte abs 2.5 0.8 - 3.3 K/cumm [facility] Monocyte abs 0.9(H) 0.2 - 0.8 K/cumm [facility] Eosinophil abs 0.1 0.0 - 0.5 K/cumm [facility] Basophil abs 0.1 0.0 - 0.1 K/cumm [facility] Neutrophil pct 70.7 % [facility] Comment: Interpretive Data Percent cell count reference ranges are not reported, since discordance with absolute values may lead to misinterpretation of CBC data. Current Interpretive Data was last revised on 2017. Imm gran pct 0.3 % [facility] Comment: Interpretive Data Percent cell count reference ranges are not reported, since discordance with absolute values may lead to misinterpretation of CBC data. Current Interpretive Data was last revised on 2017. Lymphocyte pct 20.1 % [facility] Comment: Interpretive Data Percent cell count reference ranges are not reported, since discordance with absolute values may lead to misinterpretation of CBC data. Current Interpretive Data was last revised on 2017. Monocyte pct 7.4 % [facility] Comment: Interpretive Data Percent cell count reference ranges are not reported, since discordance with absolute values may lead to misinterpretation of CBC data. Current Interpretive Data was last revised on 2017. Eosinophil pct 1.0 % [facility] Comment: Interpretive Data Percent cell count reference ranges are not reported, since discordance with absolute values may lead to misinterpretation of CBC data. Current Interpretive Data was last revised on 2017. Basophil pct 0.5 % [facility] Comment: Interpretive Data Percent cell count reference ranges are not reported, since discordance with absolute values may lead to misinterpretation of CBC data. Current Interpretive Data was last revised on 2017. Blood 08/15/2022 9:47 AM ROBOTIC MAINTENANCE TECHNICIAN 08/15/2022 9:50 AM ROBOTIC MAINTENANCE TECHNICIAN Juliette Thomas MD LAB BLOOD ORDERABLES Final Resu lt Performing Organization Address [facility] de Phone Number [address] [employer] [place] [address] * Lipase (08/15/2022 9:47 AM ROBOTIC MAINTENANCE TECHNICIAN) Pathologist [facility] Lipase 22 10 - 99 Units/L [facility] Blood (Blood, Venous) 08/15/2022 9:47 AM ROBOTIC MAINTENANCE TECHNICIAN 08/15/2022 9:50 AM ROBOTIC MAINTENANCE TECHNICIAN Juliette Thomas MD LAB BLOOD ORDERABLES Final Resu lt Performing Organization Address [facility] de Phone Number [address] [employer] [place] [address] * Comprehensive metabolic panel (08/15/2022 9:47 AM ROBOTIC MAINTENANCE TECHNICIAN) [facility] Sodium 136 135 - 145 mmol/L [facility] Potassium, pl 4.0 3.3 - 4.9 mmol/L [facility] Chloride 103 97 - 110 mmol/L [facility] CO2 25 22 - 32 mmol/L [facility] Anion gap 8 2 - 15 mmol/L [facility] BUN 15 8 - 25 mg/dL [facility] Creatinine 0.70 0.60 - 1.10 mg/dL [facility] Glucose 97 70 - 199 mg/dL [facility] Comment: Interpretive Data Fasting glucose >/= 126 [...] classification and Diagnosis of Diabetes Diabetes Care 2017;40 (Suppl. 1):S11. Current interpretive data was last revised 2017. Calcium 9.7 8.5 - 10.3 mg/dL [facility] Bilirubin, total 0.7 0.1 - 1.2 mg/dL [facility] Protein, pl 7.7 6.5 - 8.5 g/dL [facility] Albumin 4.5 3.5 - 5.0 g/dL [facility] Alk phos 102 40 - 130 Units/L [facility] ALT 23 7 - 45 Units/L [facility] AST 19 10 - 45 Units/L [facility] Blood (Blood, Venous) 08/15/2022 9:47 AM ROBOTIC MAINTENANCE TECHNICIAN 08/15/2022 9:50 AM ROBOTIC MAINTENANCE TECHNICIAN us Juliette Thomas MD LAB BLOOD ORDERABLES Final Resu lt [place] [id number] [facility] Department [place] [address] * (ABNORMAL) CBC with auto differential (08/15/2022 9:47 AM ROBOTIC MAINTENANCE TECHNICIAN) WBC 12.5(H) 3.8 - 9.9 K/cumm [facility] Hgb 15.9(H) 11.9 - 15.5 g/dL [facility] Hct 44.8 35.6 - 45.5 % [facility] Plt 267 150 - 400 K/cumm [facility] MPV 9.2 9.1 - 12.3 fL [facility] RBC 5.05 3.90 - 5.20 M/cumm [facility] MCV 88.7 81.3 - 96.4 fL [facility] MCH 31.5 27.1 - 33.3 pg [facility] MCHC 35.5 32.3 - 35.7 g/dL [facility] RDW CV 12.6 11.1 - 14.9 % [facility] RDW SD 40.6 35.7 - 48.1 fL [facility] NRBC abs 0.00 0.00 - 0.01 K/cumm [facility] Blood (Blood, Venous) 08/15/2022 9:47 AM ROBOTIC MAINTENANCE TECHNICIAN 08/15/2022 9:50 AM ROBOTIC MAINTENANCE TECHNICIAN us Juliette Thomas MD LAB BLOOD ORDERABLES Final Resu lt CHARLEEN WILKINSON [address] [facility] Department [place] [address] documented in this encounter Visit Diagnoses Diagnosis Pyelonephritis- Primary Unspecified pyelonephritis Pyelonephritis Unspecified pyelonephritis Hypertensive urgency Acute right flank pain documented in this encounter Admitting Diagnoses Diagnosis Pyelonephritis Unspecified pyelonephritis documented in this encounter Administered Medications Inactive Administered Medications - up to 3 most recent administrations Medication Order MAR Action Action Date Dose Rate Site amLODIPine (NORVASC) tablet 10 mg 10 mg, oral, Daily, First dose on Sat08/17/22 at 0945 Given 08/18/2022 8:19 AM ROBOTIC MAINTENANCE TECHNICIAN 10 mg Given 08/17/2022 10:11 AM ROBOTIC MAINTENANCE TECHNICIAN 10 mg Carrier Fluids for Secondary Infusion - 0.9% Sodium Chloride 30 mL, intravenous, As needed, For priming tubing and/or flushing, Starting on Sat08/15/22 at 1611, 0-250 ml/hr to flush line after IV infusions when no maintenance IV ordered. Infuse 30mL at the same rate as the secondary infusion. Run as primary IV, not intended for KVO. cefTRIAXone (ROCEPHIN) 2,000 mg/20 mL in sterile water (premix) 2,000 mg 2,000 mg, intravenous, at 1,200 mL/hr, Administer over 1 Minutes, Once, On Sat08/15/22 at 1107, For 1 dose, Indications: Urinary Tract/Genitourinary InfectionIndications:Urinary Tract/Genitourinary Infection Given 08/15/2022 11:32 AM ROBOTIC MAINTENANCE TECHNICIAN 2,000 mg 1200 mL/hr cefTRIAXone (ROCEPHIN) 2,000 mg/20 mL in sterile water (premix) 2,000 mg 2,000 mg, intravenous, at 1,200 mL/hr, Administer over 1 Minutes, Every 24 hours scheduled, First dose (after last reorder) on [place] 08/16/22 at 0900, Indications: Urinary Tract/Genitourinary InfectionIndications:Urinary Tract/Genitourinary Infection Given 08/18/2022 8:20 AM ROBOTIC MAINTENANCE TECHNICIAN 2,000 mg 1 200 mL/hr Given 08/17/2022 8:22 AM ROBOTIC MAINTENANCE TECHNICIAN 2,000 mg 1200 mL/hr Given 08/16/2022 9:03 AM ROBOTIC MAINTENANCE TECHNICIAN 2,000 mg 1200 mL/hr enoxaparin (LOVENOX) syringe 40 mg 40 mg, subcutaneous, Daily (for enoxaparin), First dose on Sat08/15/22 at 2100, Indications: Deep Vein Thrombosis PreventionIndications:Deep Vein Thrombosis Prevention Given 08/17/2022 8:33 PM ROBOTIC MAINTENANCE TECHNICIAN 40 mg Left Lower Abdomen Given 08/16/2022 8:30 PM ROBOTIC MAINTENANCE TECHNICIAN 40 mg Le ft Lower Abdomen Given 08/15/2022 9:27 PM ROBOTIC MAINTENANCE TECHNICIAN 40 mg Ri ght Upper Arm hydrALAZINE (APRESOLINE) injection 10 mg 10 mg, intravenous, Administer over 2 Minutes, Once, On Sat08/15/22 at 1349, For 1 dose, Indications: hypertensionIndications:hypertension Given 08/15/2022 2:20 PM ROBOTIC MAINTENANCE TECHNICIAN 10 mg hydrALAZINE (APRESOLINE) injection 10 mg 10 mg, intravenous, Administer over 2 Minutes, Every 4 hours PRN, high blood pressure, for BP>160/90, Starting on Sat08/15/22 at 1500, Indications: hypertensionIndications:hypertension Given 08/17/2022 5:07 AM ROBOTIC MAINTENANCE TECHNICIAN 10 mg Given 08/16/2022 11:57 PM ROBOTIC MAINTENANCE TECHNICIAN 10 mg hydrALAZINE (APRESOLINE) tablet 10 mg 10 mg, oral, 3 times daily, First dose on Sat08/15/22 at 1612, Indications: hypertensionIndications:hypertension Given 08/17/2022 8:21 AM ROBOTIC MAINTENANCE TECHNICIAN 10 mg Given 08/16/2022 8:30 PM ROBOTIC MAINTENANCE TECHNICIAN 10 mg Given 08/16/2022 4:09 PM ROBOTIC MAINTENANCE TECHNICIAN 10 mg hydrALAZINE (APRESOLINE) tablet 25 mg 25 mg, oral, 3 times daily, First dose (after last modification) on Sat08/17/22 at 1600, Indications: hypertensionIndications:hypertension Given 08/18/2022 8:19 AM ROBOTIC MAINTENANCE TECHNICIAN 25 mg Given 08/17/2022 8:33 PM ROBOTIC MAINTENANCE TECHNICIAN 25 mg Given 08/17/2022 5:32 PM ROBOTIC MAINTENANCE TECHNICIAN 25 mg HYDROmorphone (DILAUDID) injection 0.5 mg 0.5 mg, intravenous, Administer over 2 Minutes, Once, On Sat08/15/22 at 1459, For 1 dose, Indications: Severe Pain with Opioid ToleranceIndications:Severe Pain with Opioid Tolerance Given 08/15/2022 3:02 PM ROBOTIC MAINTENANCE TECHNICIAN 0.5 mg HYDROmorphone (DILAUDID) injection 0.5 mg 0.5 mg, intravenous, Administer over 2 Minutes, Every 2 hours PRN, 3rd line for pain, Starting on Sat08/15/22 at 1714 Given 08/17/2022 8:21 AM ROBOTIC MAINTENANCE TECHNICIAN 0.5 mg Given 08/17/2022 5:07 AM ROBOTIC MAINTENANCE TECHNICIAN 0.5 mg Given 08/17/2022 2:18 AM ROBOTIC MAINTENANCE TECHNICIAN 0.5 mg ibuprofen (ADVIL,MOTRIN) tablet 400 mg 400 mg, oral, 3 times daily PRN, 2nd line for pain, headaches, 1st line for pain, fever, Starting on Sat08/17/22 at 0901, For 5 doses, Do not crush, break, or open. Given 08/17/2022 10:10 AM ROBOTIC MAINTENANCE TECHNICIAN 400 mg labetaloL (NORMODYNE,TRANDATE) injection 10 mg 10 mg, intravenous, at 60 mL/hr, Administer over 2 Minutes, Once, On Sat08/15/22 at 1612, For 1 dose Given 08/15/2022 4:21 PM ROBOTIC MAINTENANCE TECHNICIAN 10 mg 60 mL/hr morphine injection 4 mg 4 mg, intravenous, Administer over 4 Minutes, Once, On Sat08/15/22 at 1107, For 1 dose Given 08/15/2022 11:11 AM ROBOTIC MAINTENANCE TECHNICIAN 4 mg morphine injection 4 mg 4 mg, intravenous, Administer over 4 Minutes, Once, On Sat08/15/22 at 1319, For 1 dose Given 08/15/2022 1:32 PM ROBOTIC MAINTENANCE TECHNICIAN 4 mg ondansetron (ZOFRAN) injection 4 mg 4 mg, intravenous, Administer over 2 Minutes, Once as needed, nausea, vomiting, If patient unable to tolerate PO, Starting on Sat08/15/22 at 0938, For 1 dose, Do not administer if patient had 8mg administered within 6 hours of patient presenting to ED Do not administer if patient was formally diagnosed with prolonged QT syndrome Given 08/15/2022 9:46 AM ROBOTIC MAINTENANCE TECHNICIAN 4 mg ondansetron (ZOFRAN) injection 4 mg 4 mg, intravenous, Administer over 2 Minutes, Once, On Sat08/15/22 at 1459, For 1 dose Given 08/15/2022 3:05 PM ROBOTIC MAINTENANCE TECHNICIAN 4 mg ondansetron (ZOFRAN) injection 4 mg 4 mg, intravenous, Administer over 2 Minutes, Every 6 hours PRN, nausea, vomiting, if not tolerating PO, Starting on Sat08/15/22 at 1611, Indications: Nausea and VomitingIndications:Nausea and Vomiting Given 08/17/2022 10:14 AM ROBOTIC MAINTENANCE TECHNICIAN 4 mg Given 08/17/2022 2:17 AM ROBOTIC MAINTENANCE TECHNICIAN 4 mg ondansetron ODT (ZOFRAN-ODT) disintegrating tablet 4 mg 4 mg, oral, Once as needed, nausea, vomiting, If able to tolerate PO, Starting on Sat08/15/22 at 0938, For 1 dose, Do not administer if patient had 8mg administered within 6 hours of patient presenting to ED Do not administer if patient was formally diagnosed with prolonged QT syndrome Given 08/15/2022 2:19 PM ROBOTIC MAINTENANCE TECHNICIAN 4 mg ondansetron ODT (ZOFRAN-ODT) disintegrating tablet 4 mg 4 mg, oral, Every 6 hours PRN, nausea, vomiting, Starting on Sat08/15/22 at 1611, Indications: Nausea and VomitingIndications:Nausea and Vomiting oxyCODONE-acetaminophen (PERCOCET) 5-325 mg per tablet 1 tablet 1 tablet, oral, Every 4 hours PRN, 2nd line for pain, 3rd line for pain, Starting on Sat08/15/22 at 1458, Indications: PainIndications:Pain Given 08/15/2022 4:20 PM ROBOTIC MAINTENANCE TECHNICIAN 1 tablet oxyCODONE-acetaminophen (PERCOCET) 5-325 mg per tablet 1 tablet 1 tablet, oral, Every 4 hours PRN, 2nd line for pain, Starting on Sat08/15/22 at 1714, Max 4,000 mg of acetaminophen in 24 hour period from all sources of acetaminophen. Be mindful of combination products that also contain acetaminophen., Indications: PainIndications:Pain Given 08/18/2022 12:45 PM ROBOTIC MAINTENANCE TECHNICIAN 1 tablet Given 08/18/2022 8:19 AM ROBOTIC MAINTENANCE TECHNICIAN 1 tablet Given 08/17/2022 9:33 PM ROBOTIC MAINTENANCE TECHNICIAN 1 tablet potassium chloride ER (KLOR-CON) extended release tablet 40 mEq 40 mEq, oral, Every 2 hours, First dose on [place] 08/16/23 at 1400, For 3 doses, Do not crush, chew, cut, dissolve, open or otherwise manipulate tablet/capsule. Given 08/16/2022 7:17 PM ROBOTIC MAINTENANCE TECHNICIAN 40 mEq Given 08/16/2022 5:02 PM ROBOTIC MAINTENANCE TECHNICIAN 40 mEq Given 08/16/2022 2:40 PM ROBOTIC MAINTENANCE TECHNICIAN 40 mEq prochlorperazine (COMPAZINE) injection 5 mg 5 mg, intravenous, Administer over 2 Minutes, Every 6 hours PRN, nausea, vomiting, Starting on Sat08/15/22 at 1512 Given 08/15/2022 5:26 PM ROBOTIC MAINTENANCE TECHNICIAN 5 mg sodium chloride 0.9% flush 0.5-20 mL 0.5-20 mL, intra-catheter, Every 8 hours scheduled, First dose on Sat08/15/22 at 1612, Flush volume based on line type and size. Given 08/16/2022 4:10 PM ROBOTIC MAINTENANCE TECHNICIAN 10 mL sodium chloride 0.9% flush 0.5-20 mL 0.5-20 mL, intra-catheter, As needed, line care, Starting on Sat08/15/22 at 1611, Flush volume based on line type and size. Flush before and after each use. sodium chloride 0.9% infusion 75 mL/hr, intravenous, Continuous, Starting on Sat08/15/22 at 1513 New Bag 08/16/2022 4:04 PM ROBOTIC MAINTENANCE TECHNICIAN 75 mL/hr 75 mL/hr New Bag 08/16/2022 2:25 AM ROBOTIC MAINTENANCE TECHNICIAN 75 mL/hr 75 mL/hr New Bag 08/15/2022 3:26 PM ROBOTIC MAINTENANCE TECHNICIAN 75 mL/hr 75 mL/hr tamsulosin (FLOMAX) extended release capsule 0.4 mg 0.4 mg, oral, Daily with dinner, First dose on Sat08/15/22 at 1800, Do not crush, chew, cut, dissolve, open or otherwise manipulate tablet/capsule. Given 08/17/2022 5:32 PM ROBOTIC MAINTENANCE TECHNICIAN 0.4 mg Given 08/16/2022 5:42 PM ROBOTIC MAINTENANCE TECHNICIAN 0.4 mg Given 08/15/2022 5:26 PM ROBOTIC MAINTENANCE TECHNICIAN 0.4 mg documented in this encounter Discontinued Medications Medication Sig Discontinue Reason Start Date End Da te lisinopril-hydroCHLORO thiazide (ZESTORETIC) 20-12.5 mg per tabletIndications:hype rtension Take 1 tablet by mouth 2 (two) times a day 08/15/2022 mesalamine (CANASA) 1,000 mg suppositoryIndications :Ulcerative Proctitis Insert 1 suppository (1,000 mg total) into the rectum nightly Therapy completed 05/19/2022 08/15/2022 oxyCODONE-acetaminophe n (PERCOCET) 5-325 mg per tabletIndications:Pain Take 1-2 tablets by mouth every 6 (six) hours as needed for pain Therapy completed 05/19/2022 08/15/2022 lidocaine (GLYDO) 2 % jelly in applicator Apply 10 mL (200 mg total) topically nightly Therapy completed 05/22/2022 08/15/2022 hydrocortisone (Anusol-HC) 2.5 % rectal cream Insert into the rectum 3 (three) times a day to affected areas Therapy completed 05/22/2022 08/15/2022 HYDROcodone-acetaminop hen (NORCO) 5-325 mg per tabletIndications:Pain Take 1-2 tablets by mouth every 4 (four) hours as needed for pain (1 tablet for mild to moderate pain or 2 tablets for severe pain) Do not exceed 8 tablets/day. Therapy completed 05/27/2022 08/15/2022 diclofenac sodium (VOLTAREN) 1 % gel Apply 2 g topically 3 (three) times a day Therapy completed 06/26/2022 08/15/2022 documented as of this encounter Historical Medications * This list may reflect changes made after this encounter. tamsulosin (FLOMAX) 0.4 mg extended release capsuleIndication s:Urolithiasis Take 1 capsule (0.4 mg total) by mouth daily as needed (Kidney stones) 04/20/2024 cyclobenzaprine (FLEXERIL) 10 mg tablet Take 10 mg by mouth nightly as needed for muscle spasms 01/29/2024 added in this encounter Active and Recently Administered Medications Times are shown in ROBOTIC MAINTENANCE TECHNICIAN. Scheduled Medication Order 08/16/2022 08/17/2022 08/18/2022 amLODIPine (NORVASC) tablet 10 mg 10 mg, oral, Daily, First dose on Sat08/17/22 at 0945 1011 (Given - Provider: Miranda Gordillo RN) 0819 (Given - Provider: Sandra Kimble, KHADAR) cefTRIAXone (ROCEPHIN) 2,000 mg/20 mL in sterile water (premix) 2,000 mg 2,000 mg, intravenous, at 1,200 mL/hr, Administer over 1 Minutes, Every 24 hours scheduled, First dose (after last reorder) on Sat08/16/22 at 0900, Indications: Urinary Tract/Genitourinary Infection 0903 (Given - Provider: Miranda Gordillo RN) 08 (Given - Provider: Miranda Gordillo RN) 08 (Given - Provider: Sandra Kimble, KHADAR) enoxaparin (LOVENOX) syringe 40 mg 40 mg, subcutaneous, Daily (for enoxaparin), First dose on Sat08/15/22 at 2100, Indications: Deep Vein Thrombosis Prevention 2030 (Given - Provider: Van Braxton RN) 2032 (Given - Provider: Joycelyn Welch RN) hydrALAZINE (APRESOLINE) tablet 10 mg (CANCELED) 10 mg, oral, 3 times daily, First dose on Sat08/15/22 at 1612, Indications: hypertension 0903 (Given - Provider: Miranda Gordillo RN)1609 (Given - Provider: Miranda Gordillo RN)2029 (Given - Provider: Van Braxton RN) 08 (Given - Provider: Miranda Gordillo RN) hydrALAZINE (APRESOLINE) tablet 25 mg 25 mg, oral, 3 times daily, First dose (after last modification) on Sat08/17/22 at 1600, Indications: hypertension 1732 (Given - Provider: Miranda Gordillo RN)2032 (Given - Provider: Joycelyn Welch RN) 08 (Given - Provider: Sandra Kimble, KHADAR) potassium chloride ER (KLOR-CON) extended release tablet 40 mEq (COMPLETED) 40 mEq, oral, Every 2 hours, First dose on Sat08/16/22 at 1400, For 3 doses, Do not crush, chew, cut, dissolve, open or otherwise manipulate tablet/capsule. 1440 (Given - Provider: Miranda Gordillo RN)1702 (Given - Provider: Miranda Gordillo RN)1917 (Given - Provider: Miranda Gordillo RN) sodium chloride 0.9% flush 0.5-20 mL(Linked Group 1) 0.5-20 mL, intra-catheter, Every 8 hours scheduled, First dose on Sat08/15/22 at 1612, Flush volume based on line type and size. 0518 (Not Given - Provider: Nicole Ramirez RN - Reason: IV Infusing)1610 (Given - Provider: Miranda Gordillo RN)203 (Not Given - Provider: Van Braxton RN - Reason: IV Infusing) 0413 (Not Given - Provider: Van Braxton RN - Reason: IV Infusing)1733 (Not Given - Provider: Miranda Gordillo RN - Reason: Other)203 (Not Given - Provider: Joycelyn Welch RN - Reason: Other) 0503 (Not Given - Provider: Joycelyn Welch RN - Reason: Other)1400 (Due) tamsulosin (FLOMAX) extended release capsule 0.4 mg 0.4 mg, oral, Daily with dinner, First dose on Sat08/15/22 at 1800, Do not crush, chew, cut, dissolve, open or otherwise manipulate tablet/capsule. 1742 (Given - Provider: Miranda Gordillo RN) 1732 (Given - Provider: Miranda Gordillo RN) Continuous Medication Order 08/16/2022 08/17/2022 08/18/2022 sodium chloride 0.9% infusion (CANCELED) 75 mL/hr, intravenous, Continuous, Starting on Sat08/15/22 at 1513 0225 (New Bag - Provider: Nicole Ramirez RN)1604 (New Bag - Provider: Miranda Gordillo RN) 0820 (Not Given - Provider: Miranda Gordillo RN - Reason: Other)0915 (Stopped - Provider: Miranda Gordillo RN) PRN Medication Order 08/16/2022 08/17/2022 08/18/2022 Carrier Fluids for Secondary Infusion - 0.9% Sodium Chloride(Linked Group 1) 30 mL, intravenous, As needed, For priming tubing and/or flushing, Starting on Sat08/15/22 at 1611, 0-250 ml/hr to flush line after IV infusions when no maintenance IV ordered. Infuse 30mL at the same rate as the secondary infusion. Run as primary IV, not intended for KVO. docusate sodium (COLACE) capsule 100 mg 100 mg, oral, 2 times daily PRN, constipation, Starting on Sat08/15/22 at 1611, Indications: constipation hydrALAZINE (APRESOLINE) injection 10 mg 10 mg, intravenous, Administer over 2 Minutes, Every 4 hours PRN, high blood pressure, for BP>160/90, Starting on Sat08/15/22 at 1500, Indications: hypertension 2357 (Given - Provider: Van Braxton RN) 0507 (Given - Provider: Van Braxton RN) HYDROmorphone (DILAUDID) injection 0.5 mg (CANCELED) 0.5 mg, intravenous, Administer over 2 Minutes, Every 2 hours PRN, 3rd line for pain, Starting on Sat08/15/22 at 1714 0903 (Given - Provider: Miranda Gordillo RN)1444 (Given - Provider: Miranda Gordillo RN)2030 (Given - Provider: Van Braxton RN) 0218 (Given - Provider: Van Braxton RN)0507 (Given - Provider: Van Braxton RN)0821 (Given - Provider: Miranda Gordillo RN) ibuprofen (ADVIL,MOTRIN) tablet 400 mg 400 mg, oral, 3 times daily PRN, 2nd line for pain, headaches, 1st line for pain, fever, Starting on Sat08/17/22 at 0901, For 5 doses, Do not crush, break, or open. 1010 (Given - Provider: Miranda Gordillo RN) ondansetron (ZOFRAN) injection 4 mg(Linked Group 2) 4 mg, intravenous, Administer over 2 Minutes, Every 6 hours PRN, nausea, vomiting, if not tolerating PO, Starting on Sat08/15/22 at 1611, Indications: Nausea and Vomiting 0217 (Given - Provider: Van Braxton RN)1014 (Given - Provider: Miranda Gordillo RN) ondansetron ODT (ZOFRAN-ODT) disintegrating tablet 4 mg(Linked Group 2) 4 mg, oral, Every 6 hours PRN, nausea, vomiting, Starting on Sat08/15/22 at 1611, Indications: Nausea and Vomiting 0217 (See Alternative - Provider: Van Braxton RN)1014 (See Alternative - Provider: Miranda Gordillo RN) oxyCODONE-acetaminophen (PERCOCET) 5-325 mg per tablet 1 tablet 1 tablet, oral, Every 4 hours PRN, 2nd line for pain, Starting on Sat08/15/22 at 1714, Max 4,000 mg of acetaminophen in 24 hour period from all sources of acetaminophen. Be mindful of combination products that also contain acetaminophen., Indications: Pain 1203 (Given - Provider: Miranda Gordillo RN)1742 (Given - Provider: Miranda Gordillo RN) 0112 (Given - Provider: Van rBaxton RN)1304 (Given - Provider: Miranda Gordillo RN)1732 (Given - Provider: Miranda Gordillo RN)2133 (Given - Provider: Joycelyn Welch RN) 0819 (Given - Provider: Sandra Kimble RN - Comment: r flank)1244 (Canceled Entry - Provider: Sandra Kimble RN)1245 (Given - Provider: Sandra Kimble RN - Comment: headache/r flank) prochlorperazine (COMPAZINE) injection 5 mg 5 mg, intravenous, Administer over 2 Minutes, Every 6 hours PRN, nausea, vomiting, Starting on Sat08/15/22 at 1512 sodium chloride 0.9% flush 0.5-20 mL(Linked Group 1) 0.5-20 mL, intra-catheter, As needed, line care, Starting on Sat08/15/22 at 1611, Flush volume based on line type and size. Flush before and after each use. Linked Groups Order Group 1: Saline lock IV (COMPLETED) Routine, Once (Routine), On Sat08/15/22 at 1612, For 1 occurrence And sodium chloride 0.9% flush 0.5-20 mLJump to med 0.5-20 mL, intra-catheter, Every 8 hours scheduled, First dose on Sat08/15/22 at 1612, Flush volume based on line type and size. And sodium chloride 0.9% flush 0.5-20 mLJump to med 0.5-20 mL, intra-catheter, As needed, line care, Starting on Sat08/15/22 at 1611, Flush volume based on line type and size. Flush before and after each use. And Carrier Fluids for Secondary Infusion - 0.9% Sodium ChlorideJump to med 30 mL, intravenous, As needed, For priming tubing and/or flushing, Starting on Sat08/15/22 at 1611, 0-250 ml/hr to flush line after IV infusions when no maintenance IV ordered. Infuse 30mL at the same rate as the secondary infusion. Run as primary IV, not intended for KVO. Group 2: ondansetron ODT (ZOFRAN-ODT) disintegrating tablet 4 mgJump to med 4 mg, oral, Every 6 hours PRN, nausea, vomiting, Starting on Sat08/15/22 at 1611, Indications: Nausea and Vomiting Or ondansetron (ZOFRAN) injection 4 mgJump to med 4 mg, intravenous, Administer over 2 Minutes, Every 6 hours PRN, nausea, vomiting, if not tolerating PO, Starting on Sat08/15/22 at 1611, Indications: Nausea and Vomiting documented in this encounter Orders Medications Ordered That Noe ht Not Have Been Administered Count Last Ordered Date First Ordered Date acetaminophen (TYLENOL) tablet 975 mg 1 11/2022 Carrier Fluids for Secondary Infusion - 0.9% Sodium Chloride 1 08/15/2022 docusate sodium (COLACE) capsule 100 mg 1 0 08/15/2022 HYDROmorphone (DILAUDID) injection 0.5 mg 1 08/15/2022 morphine injection 2 mg 1 08/15/2022 ondansetron ODT (ZOFRAN-ODT) disintegrating tablet 4 mg 1 08/15/2022 sodium chloride 0.9% flush 0.5-20 mL 1 11/2022 Nursing Count Last Ordered Date First Orde red Date ACTIVITY 1 08/15/2022 NOTIFY PROVIDER (SPECIFY) 08/15/2022 WEIGH PATIENT 1 08/15/2022 IV Count Last Ordered Date First Orde red Date SALINE LOCK IV 2 08/15/2022 Admission Count Last Ordered Date First Orde red Date ADMIT TO INPATIENT 1 08/15/2022 Transfer Count Last Ordered Date First Orde red Date ED TO FLOOR BED REQUEST 1 08/15/2022 Discharge Count Last Ordered Date First Orde red Date DISCHARGE PATIENT 1 08/18/2022 documented in this encounter Care Teams Tool Hardener Relationship Specialty Start Date End Date Lucas Carter DO PCP - General Internal Medicine 08/15/22 documented as of this encounter
--- OUTSIDE RECORDS SUMMARY | 2024-08-17 01:54 | XMS_ITS | Encounter Summary ---
Author Organization [facility] Address [address] [place] [address] Phone Care Team Providers Care Hand Tufter Name Role Phone Lucas Carter DO Primary Care Provider [phone]- [phone] Reason for Referral * MRI/CAT/PET Scan (Routine) - Closed Specialty Diagnoses / Procedures Referred By Lluvia t Referred To Contact Radiology Diagnoses Spinal stenosis, multiple sites in spine Procedures MRI Spine [place] [id number] [place] [address] Phone: tel: fax: [address] [address] Referral ID Status Reason Start Date Expiration Date Visits Re quested Visits Authorized [id number] Closed 10/11/2023 12/09/2023 1 1 ONAL ASSISTANT Encounter Details Date Type Department Care Team (Late st Contact Info) Description 10/11/2023 Orders Only [facility] Orthopaedic Surgery [address] [place] [address] [place] [address] [place] [address] Spinal stenosis, multiple sites in spine (Primary Dx) Social History Tobacco Use Types [...] file Legal Sex Female 9:06 PM PERSONAL ASSISTANT Gender Identity Female 10/01/2023 8:44 AM PERSONAL ASSISTANT Sexual Orientation Straight 10/01/2023 8: 44 AM PERSONAL ASSISTANT documented as of this encounter Plan of Treatment Not on file documented as of this encounter Results * MRI Spine Total [...] Diagnoses Diagnosis Spinal stenosis, multiple sites in spine- Primary Spinal stenosis, multiple sites in spine documented in this encounter Care Teams Hand Tufter Relationship Specialty Start Date End Date Lucas Carter DO PCP - General Internal Medicine 08/15/22 documented as of this encounter
--- OUTSIDE RECORDS SUMMARY | 2024-08-17 01:54 | XMS_ITS | Encounter Summary ---
Author Organization [facility] Healthcare Address [address] [place] [address] Care Team Providers Care Traveling Electrician Name Role Phone Lucas Carter DO Primary Care Provider [phone]- [phone] Encounter Details Date Type Department Care Team (Latest Contact Info) Description 09/10/2023 11:43 AM WILDLIFE TECHNICIAN - 09/10/2023 11:59 PM WILDLIFE TECHNICIAN Hospital Encounter [id number] Radiology [address] [place] [id number] Discharge Disposition: Discharge to home or self [...] on file Legal Sex Female 9:06 PM WILDLIFE TECHNICIAN Gender Identity Female 10/01/2023 8:44 AM WILDLIFE TECHNICIAN Sexual Orientation Straight 10/01/2023 8: 44 AM WILDLIFE TECHNICIAN documented as of this encounter Medications at Time of Discharge hydroCHLOROthiazide (HYDRODIURIL) 25 mg tabletIndications:h ypertension Take 1 tablet (25 mg total) by mouth human services supervisor 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 losartan (COZAAR) 50 mg tabletIndications:h ypertension Take 1 tablet (50 mg total) by mouth 2 (two) times a day MULTIVIT-MINERALS/F ERROUS FUM (MULTI VITAMIN ORAL)Indications:he alth Take 1 tablet by mouth human services supervisor 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 omeprazole (PriLOSEC) 20 mg capsuleIndications: Treatment of Non-Bleeding Gastric Disorder Take 1 capsule (20 mg total) by mouth human services supervisor 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 ondansetron ODT (ZOFRAN-ODT) 4 mg [...] needed for pain 30 tablet 08/23/2023 4 oxyCODONE (ROXICODONE) 5 mg immediate release tabletIndications:P ain Take 1 tablet (5 mg total) by mouth every 6 (six) hours as needed (severe pain) 12 tablet 08/23/2023 4 tamsulosin (FLOMAX) 0.4 mg extended release [...] Name Priority Date/Time Associated Diagnosis Comments XR SPINE CERVICAL COMPLETE 4 OR 5 VW Schedule Routine, Read Routine (OP Routine) 09/10/2023 11:50 AM WILDLIFE TECHNICIAN Chronic neck pain documented in this encounter Results * X-ray cervical spine complete 4 or 5 vw (09/10/2023 11:50 AM WILDLIFE TECHNICIAN) Anatomical Region Laterality Modality Spine N/A Computed Radiogr aphy 09/10/2023 12:3 8 PM WILDLIFE TECHNICIAN Impressions 09/10/2023 12:38 PM WILDLIFE TECHNICIAN 1. ??Mild multilevel degenerative disc in the cervical spine. Electronically signed by: Antoni Ayala MD Narrative 09/10/2023 12:38 PM WILDLIFE TECHNICIAN EXAMINATION: XR SPINE CERVICAL COMPLETE 4 OR 5 VW HISTORY: ??Neck pain TECHNIQUE: 4 radiographs of the cervical spine COMPARISON: 06/07/2016 FINDINGS: Vertebral body heights are normal. ??There is mild multilevel degenerative disc disease. ??Nonulcerated fusion C6-C7. ??No significant listhesis. ??No significant abnormal translation on flexion or extension. ??Vascular calcifications. Procedure Note Antoni Ayala MD - 09/10/2023 EXAMINATION: XR SPINE CERVICAL COMPLETE 4 OR 5 VW HISTORY: Neck pain TECHNIQUE: 4 radiographs of the cervical spine COMPARISON: 06/07/2016 FINDINGS: Vertebral body heights are normal. There is mild multilevel degenerative disc disease. Nonulcerated fusion C6-C7. No significant listhesis. No significant abnormal translation on flexion or extension. Vascular calcifications. IMPRESSION: 1. Mild multilevel degenerative disc in the cervical spine. Electronically signed by: Antoni Ayala MD Catherine Teague MD IMG XR PROCEDURES Final Result documented in this encounter Visit Diagnoses Not on filedocumented in this encounter Care Teams Traveling Electrician Relationship Specialty Start Date End Date Lucas Carter DO PCP - General Internal Medicine 08/15/22 documented as of this encounter
--- OUTSIDE RECORDS SUMMARY | 2024-08-17 01:54 | XMS_ITS | Encounter Summary ---
Author Organization [facility] Healthcare Address [address] [place] [address] Care Team Providers Care Restaurant Hourly Team Member Name Role Phone Lucas Carter DO Primary Care Provider [phone]- [phone] Reason for Visit * Reason Comments Abdominal Pain Encounter Details Date Type Department Care Team (Late st Contact Info) Description 11/07/2022 9:38 AM CDT - 11/07/2022 3:08 PM CDT Emergency [facility] Emergency Department [address] [place] [address] Valeriano Danielson MD [address] [facility] [address] [place] [address] Vulvovaginal candidiasis (Primary Dx); Abdominal pain; Primary hypertension Discharge Disposition: Discharge to home or self care Social History Tobacco Use Types Packs/Day Years Used Date Smoking Tobacco: Every Day Cigarettes Smokeless Tobacco: Never Alcohol Use Standard Drinks/Week Comments No 0 (1 standard drink = 0.6 oz pur e alcohol) Comments No Sex and Gender Information Value Date Recorded Sex Assigned at Not on file Legal Sex Female 9:06 PM ENVIRONMENTAL CONFLICT MANAGER Gender Identity Female 10/01/2023 8:44 AM ENVIRONMENTAL CONFLICT MANAGER Sexual Orientation Straight 10/01/2023 8: 44 AM ENVIRONMENTAL CONFLICT MANAGER documented as of this encounter Last Filed Vital Signs Vital Sign Reading Time Taken Comments Blood Pressure 216/131 11/07/2022 10:00 AM CDT Pulse 83 11/07/2022 10:00 AM CDT Temperature 36.9 ??C (98.5 ??F) 11/07/2022 9:07 AM CD T Respiratory Rate 15 11/07/2022 10:00 AM CDT Oxygen Saturation 97% 11/07/2022 10:00 AM CDT Inhaled Oxygen Concentration - - Weight 79.4 kg (175 lb) 11/07/2022 8:17 AM CDT Height 160 cm (5' 3 ) 11/07/2022 8:17 AM CDT Body Mass Index 31 11/07/2022 8:17 AM CDT documented in this encounter Discharge Instructions * Discharge Instructions* Crow Rosa MD - 11/07/2022 1:44 PM CDT You came to the emergency department for acute onset abdominal pain concerning for ovarian problems. We obtained labs and various imaging to rule out any serious problem in your bladder, ovary, or colon that could explain your symptoms. A pelvic exam was performed, and findings were concerning for nestor (yeast infection). You were prescribed one dose of fluconazole that should treat your symptoms. Please take tylenol and ibuprofen as needed for pain control and follow up with your TRIM AND BURR OPERATOR to discuss possible next steps. Please return to the ER if you experience fevers, chills, worsening pain, continued vaginal discharge/pain. Please follow up with your PCP as soon as able. documented in this encounter Medications at Time of Discharge MULTIVIT-MINERALS/F ERROUS FUM (MULTI VITAMIN ORAL)Indications:he alth Take 1 tablet by mouth research professor 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 omeprazole (PriLOSEC) 20 mg capsuleIndications: Treatment of Non-Bleeding Gastric Disorder Take 1 capsule (20 mg total) by mouth research professor 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 amLODIPine (NORVASC) 10 mg tablet Take 1 tablet (10 mg total) by mouth daily 30 tablet 08/19/2022 4 cyclobenzaprine (FLEXERIL) 10 mg tablet Take 10 mg by mouth nightly as needed for muscle spasms 4 fluconazole (DIFLUCAN) 150 mg tablet Take [...] Refills Last Filled Start Date End Date fluconazole (DIFLUCAN) 150 mg tablet Take 1 tablet orally as directed. 1 tablet 11/07/2022 01/29/2024 documented in this encounter Discharge Disposition Disposition Code Departure Means Destination Comment s Discharge to home or self care documented in this encounter ED Notes * Shaye Roberts RN - 11/07/2022 1:44 PM CDT Bed: ED1-13 Expected date: 11/07/22 Expected time: Means of arrival: Comments: Meme Luke Kara Brennan, RN 11/07/22 1344 * Crow Rosa MD - 11/07/2022 9:46 AM CDT HPI Chief Complaint Patient presents with Abdominal Pain 42F PMH left ovarian cyst, right salpingectomy with hysterectomy, recurrent kidney stones, HTN who presents with acute onset LLQ pain starting at 230AM 11/07. Woke her out of deep sleep. Constant, throbbing pain associated with nausea and one episode of vomiting after taking morning medications. Pain is in different location than prior stones, and does not radiate. Denies any hematuria, dysuria, fevers, chills, back pain, constipation, diarrhea, BRBPR, melena. History provided by: Patient Patient History: Patient Active Problem List Diagnosis Date Noted Pyelonephritis 08/15/2022 Hypertensive urgency 08/15/2022 Acute right [...] radius 08/31/2014 Past Medical History: Diagnosis Date Hypertension Migraine Past Surgical History: Procedure Laterality Date SECTION HYSTERECTOMY KIDNEY SURGERY Family History Problem Relation Age of Onset Hypertension Father Diabetes Neg Hx Social History Tobacco Use Smoking status: Every Day Packs/day: 0.50 Types: Cigarettes Smokeless tobacco: Never Substance and Sexual Activity Alcohol use: No Drug use: No Sexual activity: Yes Partners: Male control/protection: Hysterectomy Social History Social History Narrative Not on file Review of Systems Review of Systems Physical Exam ED Triage Vitals [11/07/22 0817] Temp Pulse Resp BP SpO2 36.4 ??C (97.6 ??F) 86 18 (!) 230/148 97 % Temp src Heart Rate Source Patient Position BP Location FiO2 (%) Oral -- -- -- -- Height Height Method Weight Weight Method 1.6 m (5' 3 ) Stated 79.4 kg (175 lb) Stated Physical Exam Constitutional: General: She is in acute distress. Appearance: She is well-developed. HENT: Head: Normocephalic and atraumatic. Cardiovascular: Rate and Rhythm: Normal rate and regular rhythm. Heart sounds: Normal heart sounds. Pulmonary: Effort: Pulmonary effort is normal. Breath sounds: Normal breath sounds. Abdominal: General: Abdomen is flat. There is abdominal bruit. There is no distension. There are no signs of injury. Tenderness: There is no right CVA tenderness or left CVA tenderness. Hernia: No hernia is present. Comments: LLQ TTP on superficial and deep palpation, voluntary guarding. No peritoneal signs Skin: General: Skin is warm and dry. Neurological: Mental Status: She is alert and oriented to person, place, and time. Motor: No weakness. Psychiatric: Mood and Affect: Mood normal. Behavior: Behavior normal. [facility] Medical Decision Making 42F with PMH known 3cm left ovarian cyst, recurrent kidney stones presenting with acute onset LLQ pain starting early this morning with nausea. No other symptoms. Hypertensive on arrival, unable to tolerate PO meds this morning. PE with LLQ TTP without peritonitis. DDx ovarian torsion, cyst rupture, TOA, diverticulitis, renal stone. Labs: cbc, bmp, lipase, UA Imaging: CTAP Amount and/or Complexity of Data Reviewed Labs: ordered. Radiology: ordered. Risk OTC drugs. Prescription drug management. Attending Summary of Care ED Course as of 11/07/22 1446 Time: 11/07 1341 Comment: CT scan without any acute findings, TVUS without torsion. By: Crow Rosa MD Time: 11/07 1342 Comment: Plan for tylenol/ibuprofen for pain control By: Crow Rosa MD Time: 11/07 1342 Comment: Pelvic exam with thick, white discharge concerning for candidal vaginitis. Prescribe outpatient diflucan and discharge. By: Crow Rosa MD Vulvovaginal candidiasis Abdominal pain Primary hypertension Crow Rosa MD Resident 11/07/22 1446 Cosigned by Valeriano Danielson MD at 11/08/2022 11:34 PM CDT Associated attestation - Valeriano Danielson MD - 11/08/2022 11:34 PM CDT I have seen and examined the patient on 11/07/2022. I agree with the findings and plan of care as documented in the resident's note. * Natalie Sarabia RN - 11/07/2022 9:38 AM CDT Bed: ED1-13 Expected date: Expected time: Means of arrival: Comments: Natalie Persaud RN 11/07/22 0938 * Jana Mccain RN - 11/07/2022 8:13 AM CDT Pt to ED d/t LLQ 10/10 abdominal pain starting 2:30 this morning, N/V. Pt took zofran this am. Elevated BP possibly d/t vomiting BP and pain meds. Pt has h/o hysterectomy and right ovary removal about 6 years ago. documented in this encounter Plan of Treatment Not on file documented as of this encounter Procedures Procedure Name Priority Date/Time Associated Diagnosis Comments US TRANSVAGINAL ED Urgent/IP Urgent 11/07/2022 1:[address] ABDOMEN PELVIS W CONTRAST ED Urgent/IP Urgent 11/07/2022 10:46 AM CDT POCT HCG, URINE Routine 11/07/2022 9:08 AM CDT URINALYSIS AND REFLEX TO MICROSCOPIC STAT 11/07/2022 9:01 AM CDT EGFR STAT 11/07/2022 8:58 AM CDT DIFFERENTIAL AUTO STAT 11/07/2022 8:5 8 AM CDT CBC WITH AUTO DIFFERENTIAL STAT 11/07/2022 8:58 AM CDT LIPASE STAT 11/07/2022 8:58 AM CDT COMPREHENSIVE METABOLIC PANEL STAT 11/07/2022 8:58 AM CDT documented in this encounter Results * US Transvaginal (11/07/2022 1:20 PM CDT) Anatomical Region Laterality Modality Pelvis N/A Ultrasound 11/07/2022 1:26 PM CDT Impressions 11/07/2022 1:35 PM CDT 1. ??Normal examination. ??No change from prior CT and no findings suspicious for ovarian torsion. Dictated by: Tere Pang M.D. The radiology attending physician has personally reviewed this study, and had reviewed and/or edited this written report and agrees with it. Electronically signed by: Bang Bruce M.D. Narrative 11/07/2022 1:35 PM CDT EXAMINATION: TRANSVAGINAL PELVIC SONOGRAM AND DOPPLER HISTORY: ??42-year-old female with history of hysterectomy, right salpingectomy, left ovarian cyst, presenting with left lower quadrant abdominal pain. ??Evaluate for ovarian torsion. ??A simple cyst that had enlarged slightly over a 3 month. ??Was noted on same-day CT COMPARISON: ??Same day 11/07/[address] Prior 08/15/[address]22 CT examination. FINDINGS: PELVIC SONOGRAM: Uterus: The uterus is surgically absent. ?? Right ovary: The right ovary is surgically absent. Left ovary: The left ovary measures ??4.6 cm x 3.6 cm x 2.9 cm. The dominant left ovarian cyst in on CT measures 3.0 cm x 3.0 cm x 2.2 cm. Other: No abnormal masses or fluid collections are visualized in either adnexal region. PELVIC DOPPLER: 2-D color Doppler imaging and pulse Doppler spectral analysis was performed. ??There is detectable arterial and venous flow in the left ovary. Procedure Note Bang Bruce MD - 11/07/2022 EXAMINATION: TRANSVAGINAL PELVIC SONOGRAM AND DOPPLER HISTORY: 42-year-old female with history of hysterectomy, right salpingectomy, left ovarian cyst, presenting with left lower quadrant abdominal pain. Evaluate for ovarian torsion. A simple cyst that had enlarged slightly over a 3 month. Was noted on same-day CT COMPARISON: Same day 11/07/[address] Prior 08/15/2022 CT examination. FINDINGS: PELVIC SONOGRAM: Uterus: The uterus is surgically absent. Right ovary: The right ovary is surgically absent. Left ovary: The left ovary measures 4.6 cm x 3.6 cm x 2.9 cm. The dominant left ovarian cyst in on CT measures 3.0 cm x 3.0 cm x 2.2 cm. Other: No abnormal masses or fluid collections are visualized in either adnexal region. PELVIC DOPPLER: 2-D color Doppler imaging and pulse Doppler spectral analysis was performed. There is detectable arterial and venous flow in the left ovary. IMPRESSION: 1. Normal examination. No change from prior CT and no findings suspicious for ovarian torsion. Dictated by: Tere Pang M.D. The radiology attending physician has personally reviewed this study, and had reviewed and/or edited this written report and agrees with it. Electronically signed by: Bang Bruce M.D. Crow Rosa MD IMG US PROCEDURE S Final Result * CT Abdomen Pelvis W Contrast (11/07/2022 10:46 AM CDT) Anatomical Region Laterality Modality Body N/A Computed Tomogra phy 11/07/2022 11:3 4 AM CDT Impressions 11/07/2022 11:34 AM CDT 3.5 cm left ovarian simple cyst, mildly increased in size from the prior study dated 08/15/2022. ??There is a 1.4 cm left ovarian simple cyst that is new. Otherwise, no acute finding in the abdomen or pelvis. Electronically signed by: Taryn Villanueva M.D. Narrative 11/07/2022 11:34 AM CDT EXAMINATION: CT ABDOMEN PELVIS W CONTRAST HISTORY: LLQ abdominal pain, diverticulitis suspected, nausea and one episode of vomiting; history of hysterectomy and right Nephrectomy TECHNIQUE: Transaxial computed tomographic images of the abdomen and pelvis were obtained with intravenous contrast according to the standard protocol after the uneventful administration of 72 mL Opti-Ray 350 intravenous contrast. COMPARISON: 08/15/2022 FINDINGS: There is a 3.2 cm right to left by 3.6 cm AP (series 2 image 176) by 3.3 cm CC (sagittal image 55) simple cyst within the left ovary, mildly increased in size. There is a separate 1.1 cm transverse (series 2 image 161) by 1.4 cm CC (sagittal image 55) simple cyst within left ovary, new from the prior study. There is no adjacent fluid. The uterus and right ovary are surgically absent. No hydronephrosis, nephrolithiasis, or ureterolithiasis is seen. There are multiple calcified phleboliths within the pelvis, unchanged The liver is enlarged and demonstrates diffusely decreased density, consistent with fat deposition, with areas of sparing around the gallbladder fossa. The abdominal and pelvic solid viscera are otherwise unremarkable. The gallbladder and urinary bladder are unremarkable. There is fluid within the proximal ascending colon without significant wall thickening. The rest the colon is decompressed. There are scattered distal colonic diverticula without evidence of diverticulitis. There is no small bowel dilatation or bowel wall thickening. The appendix is identified and is normal. There is no free fluid or pneumoperitoneum. There is no lymphadenopathy. The vasculature is unremarkable. The lung bases demonstrate mosaic attenuation, likely representing focal areas of air trapping related to small airways disease. No significant skeletal abnormalities are identified. Procedure Note Taryn Villanueva MD - 11/07/2022 EXAMINATION: CT ABDOMEN PELVIS W CONTRAST HISTORY: LLQ abdominal pain, diverticulitis suspected, nausea and one episode of vomiting; history of hysterectomy and right Nephrectomy TECHNIQUE: Transaxial computed tomographic images of the abdomen and pelvis were obtained with intravenous contrast according to the standard protocol after the uneventful administration of 72 mL Opti-Ray 350 intravenous contrast. COMPARISON: 08/15/2022 FINDINGS: There is a 3.2 cm right to left by 3.6 cm AP (series 2 image 176) by 3.3 cm CC (sagittal image 55) simple cyst within the left ovary, mildly increased in size. There is a separate 1.1 cm transverse (series 2 image 161) by 1.4 cm CC (sagittal image 55) simple cyst within left ovary, new from the prior study. There is no adjacent fluid. The uterus and right ovary are surgically absent. No hydronephrosis, nephrolithiasis, or ureterolithiasis is seen. There are multiple calcified phleboliths within the pelvis, unchanged The liver is enlarged and demonstrates diffusely decreased density, consistent with fat deposition, with areas of sparing around the gallbladder fossa. The abdominal and pelvic solid viscera are otherwise unremarkable. The gallbladder and urinary bladder are unremarkable. There is fluid within the proximal ascending colon without significant wall thickening. The rest the colon is decompressed. There are scattered distal colonic diverticula without evidence of diverticulitis. There is no small bowel dilatation or bowel wall thickening. The appendix is identified and is normal. There is no free fluid or pneumoperitoneum. There is no lymphadenopathy. The vasculature is unremarkable. The lung bases demonstrate mosaic attenuation, likely representing focal areas of air trapping related to small airways disease. No significant skeletal abnormalities are identified. IMPRESSION: 3.5 cm left ovarian simple cyst, mildly increased in size from the prior study dated 08/15/2022. There is a 1.4 cm left ovarian simple cyst that is new. Otherwise, no acute finding in the abdomen or pelvis. Electronically signed by: Taryn Villanueva M.D. us Crow Rosa MD IMG CT PROCEDURE S Final Result * POCT hCG, urine (11/07/2022 9:08 AM CDT) HCG, ur, POC Negative Lot Number [id number] QC Backgroud Clear Acceptable QC Control Line Acceptable Urine 11/07/2022 9:08 AM CDT Valeriano Danielson MD POINT OF CARE TEST ORDERABLES Final Result * Urinalysis reflex to microscopic (11/07/2022 9:01 AM CDT) Color, ur Straw Yellow [facility] Clarity, ur Clear Clear [facility] Specific gravity, ur 1.012 1.003 - 1.030 [facility] pH, urine [facility].[address] [facility] Protein, ur ql Negative Negative [facility] Glucose, ur ql Negative Negative [facility] Ketones, ur Negative Negative [facility] Bilirubin, ur Negative Negative [facility] Blood, ur Negative Negative [facility] Urobilinogen, ur <2.0 <2.0 mg/dL [facility] Nitrite, ur Negative Negative [facility] Leukocyte esterase, ur Negative Negative [facility] UA reflex comment Reflex conditions for microscopic UA and culture not met. [facility] Urine 11/07/2022 9:01 AM CDT 11/07/2022 9:08 AM CDT Narrative [facility] - 11/07/2022 9:16 AM CDT ?? Urine pH is affected by diet, medications, systemic acid-base disturbances, and renal tubular function. ??pH may affect urinary stone formation. ??For example, urine pH below 6.0 may help reduce the tendency for calcium phosphate stones and pH greater than 6.0 may reduce the tendency for uric acid stone formation. Source: [facility]. Last revised 08-22-2017 us Valeriano Danielson MD LAB URINE ORDERABLES Final Re sult [facility] Department [place] [address] * eGFR (11/07/2022 8:58 AM CDT) eGFR >90 90 - 130 mL/min/1. 73 m2 [facility] Comment: Interpretive Data Reference Interval Normal ?>/= [...] interpretive data was last reviewed 2021. Blood 11/07/2022 8:58 AM CDT 11/07/2022 9:08 AM CDT us Valeriano Danielson MD LAB BLOOD ORDERABLES Final Re sult [facility] Department of Laboratories [place], [place] [id number] * Differential, auto (11/07/2022 8:58 AM CDT) Neutrophil abs 5.8 1.7 - 6.5 K/cumm [facility] Imm gran abs 0.0 0.0 - 0.1 K/cumm [facility] Lymphocyte abs 2.0 0.8 - 3.3 K/cumm [facility] Monocyte abs 0.5 0.2 - 0.8 K/cumm [facility] Eosinophil abs 0.2 0.0 - 0.5 K/cumm [facility] Basophil abs 0.1 0.0 - 0.1 K/cumm [facility] Neutrophil pct 67.4 % [facility] Comment: Interpretive Data Percent cell count reference ranges are not reported, since discordance with absolute values may lead to misinterpretation of CBC data. Current Interpretive Data was last revised on 2017. Imm gran pct 0.2 % [facility] Comment: Interpretive Data Percent cell count reference ranges are not reported, since discordance with absolute values may lead to misinterpretation of CBC data. Current Interpretive Data was last revised on 2017. Lymphocyte pct 23.7 % [facility] Comment: Interpretive Data Percent cell count reference ranges are not reported, since discordance with absolute values may lead to misinterpretation of CBC data. Current Interpretive Data was last revised on 2017. Monocyte pct 6.2 % [facility] Comment: Interpretive Data Percent cell count reference ranges are not reported, since discordance with absolute values may lead to misinterpretation of CBC data. Current Interpretive Data was last revised on 2017. Eosinophil pct 1.8 % [facility] Comment: Interpretive Data Percent cell count reference ranges are not reported, since discordance with absolute values may lead to misinterpretation of CBC data. Current Interpretive Data was last revised on 2017. Basophil pct 0.7 % [facility] Comment: Interpretive Data Percent cell count reference ranges are not reported, since discordance with absolute values may lead to misinterpretation of CBC data. Current Interpretive Data was last revised on 2017. Blood 11/07/2022 8:58 AM CDT 11/07/2022 9:08 AM CDT us Valeriano Danielson MD LAB BLOOD ORDERABLES Final Re sult [facility] Department [place] [address] * Lipase (11/07/2022 8:58 AM CDT) Lipase 31 10 - 99 Units/L [facility] Blood (Blood, Venous) 11/07/2022 8:58 AM CDT 11/07/2022 9:08 AM CDT Valeriano Danielson MD LAB BLOOD ORDERABLES Final Re sult [facility] Department [place] [address] * Comprehensive metabolic panel (11/07/2022 8:58 AM CDT) Pathologist [facility] Sodium 140 135 - 145 mmol/L [facility] Potassium, pl 4.2 3.3 - 4.9 mmol/L [facility] Chloride 106 97 - 110 mmol/L [facility] CO2 27 22 - 32 mmol/L [facility] Anion gap 7 2 - 15 mmol/L [facility] BUN 9 8 - 25 mg/dL [facility] Creatinine 0.64 0.60 - 1.10 mg/dL [facility] Glucose 86 70 - 199 mg/dL [facility] Comment: Interpretive Data Fasting glucose >/= 126 [...] interpretive data was last revised 2022. Calcium 9.0 8.5 - 10.3 mg/dL [facility] Bilirubin, total 0.3 0.1 - 1.2 mg/dL [facility] Protein, pl 7.2 6.5 - 8.5 g/dL [facility] Albumin 4.3 3.5 - 5.0 g/dL [facility] Alk phos 88 40 - 130 Units/L [facility] ALT 30 7 - 45 Units/L [facility] AST 29 10 - 45 Units/L [facility] Blood 11/07/2022 8:58 AM CDT 11/07/2022 9:08 AM CDT Valeriano Danielson MD LAB BLOOD ORDERABLES Final Re sult Performing Organization Address City/[facility]/ZIP Co de Phone Number [facility] Department of [facility] [place] [address] * CBC with auto differential (11/07/2022 8:58 AM CDT) WBC 8.6 3.8 - 9.9 K/cumm [facility] Hgb 14.8 11.9 - 15.5 g/dL [facility] Hct 42.1 35.6 - 45.5 % [facility] Plt 264 150 - 400 K/cumm [facility] MPV 9.9 9.1 - 12.3 fL [facility] RBC 4.89 3.90 - 5.20 M/cumm [facility] MCV 86.1 81.3 - 96.4 fL [facility] MCH 30.3 27.1 - 33.3 pg [facility] MCHC 35.2 32.3 - 35.7 g/dL [facility] RDW CV 12.3 11.1 - 14.9 % [facility] RDW SD 38.7 35.7 - 48.1 fL [facility] NRBC abs 0.00 0.00 - 0.01 K/cumm [facility] Blood (Blood, Venous) 11/07/2022 8:58 AM CDT 11/07/2022 9:08 AM CDT Valeriano Danielson MD LAB BLOOD ORDERABLES Final Re sult Performing Organization Address City/[facility]/ZIP Co de Phone Number [facility] [place] [address] documented in this encounter Visit Diagnoses Diagnosis Vulvovaginal candidiasis- Primary Abdominal pain Abdominal pain, unspecified site Primary hypertension Unspecified essential hypertension documented in this encounter Administered Medications Inactive Administered Medications - up to 3 most recent administrations Medication Order MAR Action Action Date Dose Rate Site acetaminophen (TYLENOL) tablet 1,000 mg 1,000 mg, oral, Every 6 hours scheduled, First dose on Sat11/07/22 at 1342 Given 11/07/2022 1:26 PM CDT 1,000 mg HYDROmorphone (DILAUDID) injection 0.5 mg 0.5 mg, intravenous, Administer over 2 Minutes, Once, On Sat11/07/22 at 0957, For 1 dose, Indications: PainIndications:Pain Given 11/07/2022 10:27 AM CDT 0.5 mg ibuprofen (ADVIL,MOTRIN) tablet 600 mg 600 mg, oral, 3 times daily, First dose on Sat11/07/22 at 1342, Do not crush, break, or open. Given 11/07/2022 1:51 PM CDT 600 mg ioversoL (OPTIRAY 350) syringe 75 mL 75 mL, intravenous, Once in imaging, contrast, Starting on Sat11/07/22 at 1044, For 1 dose Contrast Given 11/07/2022 10:45 AM CDT 72 mL ondansetron (ZOFRAN) injection 4 mg 4 mg, intravenous, Administer over 2 Minutes, Every 4 hours PRN, nausea, vomiting, Starting on Sat11/07/22 at 0955 Given 11/07/2022 10:24 AM CDT 4 mg documented in this encounter Active and Recently Administered Medications Times are shown in CDT. Scheduled Medication Order 11/05/2022 11/06/2022 11/07/2022 acetaminophen (TYLENOL) tablet 1,000 mg 1,000 mg, oral, Every 6 hours scheduled, First dose on Sat11/07/22 at 1342 1326 (Given - Provid er: Chris Umaña RN) HYDROmorphone (DILAUDID) injection 0.5 mg (COMPLETED) 0.5 mg, intravenous, Administer over 2 Minutes, Once, On Sat11/07/22 at 0957, For 1 dose, Indications: Pain 1027 (Given - Provid er: Chris Umaña RN - Comment: stop time 1030) ibuprofen (ADVIL,MOTRIN) tablet 600 mg 600 mg, oral, 3 times daily, First dose on Sat11/07/22 at 1342, Do not crush, break, or open. 1351 (Given - Provid er: Chris Umaña RN) PRN Medication Order 11/05/2022 11/06/2022 11/07/2022 ioversoL (OPTIRAY 350) syringe 75 mL (COMPLETED) 75 mL, intravenous, Once in imaging, contrast, Starting on Sat11/07/22 at 1044, For 1 dose 1045 (Contrast Given - Provider: Gerardo Vázquez, RT) ondansetron (ZOFRAN) injection 4 mg 4 mg, intravenous, Administer over 2 Minutes, Every 4 hours PRN, nausea, vomiting, Starting on Sat11/07/22 at 0955 1024 (Given - Provid er: Chris Umaña RN - Comment: stop time 1028) documented in this encounter Orders Medications Ordered That Noe ht Not Have Been Administered Count Last Ordered Date First Ordered Date fluconazole (DIFLUCAN) tablet 150 mg 1 10/11 documented in this encounter Care Teams [employer] Team Member Relationship Specialty Start Date End Date Lucas Carter DO PCP - General Internal Medicine 08/15/22 documented as of this encounter
--- OUTSIDE RECORDS SUMMARY | 2024-08-17 01:54 | XMS_ITS | Encounter Summary ---
Author Organization [facility] Healthcare Address [address] [place] [address] Care Team Providers Care Lead Retail Sales Associate Name Role Phone Damian Sadler MD Primary Care Provider [phone] Reason for Visit * Reason Comments Flank Pain Encounter Details Date Type Department Care Team (Late st Contact Info) Description 01/23/2022 1:32 PM CDT - 01/23/2022 5:33 PM CDT Emergency [facility] Emergency Department [address] [place] [address] Right flank pain (Primary Dx); Hypertension, unspecified type Discharge Disposition: Discharge to home or self care Social History Tobacco Use Types Packs/Day Years Used Date Smoking Tobacco: Every Day Cigarettes Smokeless Tobacco: Never Alcohol Use Standard Drinks/Week Comments No 0 (1 standard drink = 0.6 oz pur e alcohol) Comments No Sex and Gender Information Value Date Recorded Sex Assigned at Not on file Legal Sex Female 9:06 PM 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 MANAGER Gender Identity Female 10/01/2023 8:44 AM REPAIR DEPARTMENT MANAGER Sexual Orientation Straight 10/01/2023 8: 44 AM REPAIR DEPARTMENT MANAGER documented as of this encounter Last Filed Vital Signs Vital Sign Reading Time Taken Comments Blood Pressure 178/112 01/23/2022 5:15 PM CDT Pulse 74 01/23/2022 5:15 PM CDT Temperature 36.8 ??C (98.3 ??F) 01/23/2022 1:08 PM CD T Respiratory Rate 14 01/23/2022 5:15 PM CDT Oxygen Saturation 97% 01/23/2022 5:15 PM CDT Inhaled Oxygen Concentration - - Weight 82.6 kg (182 lb 1.6 oz) 01/23/2022 1:08 P M CDT Height 160 cm (5' 3 ) 01/23/2022 1:08 PM CDT Body Mass Index 32.26 01/23/2022 1:08 PM CDT documented in this encounter Discharge Instructions * Discharge Instructions* Glo Ford PA - 01/23/2022 5:18 PM CDT Continue previously prescribed hypertension medications and keep appointment with your urologist this week. Consider seeing a marketing coordinator for uncontrolled hypertension or follow-up with your primarycare provider in the next week for further evaluation. Return if you develop new or worsening symptoms. You can take [id number] Tylenol and ibuprofen for pain relief if needed. Follow-up as recommended is mandatory. You have received emergency care only at your visit today. This is not a substitute for ongoing care, further evaluation and treatment and therefore follow-up as directed is not optional but mandatory You MUST follow up for further evaluation of all incidental abnormal radiographic and laboratory findings, Have your physician obtain records from this visit and address all the incidental abnormal findings. This may include final results of lab testing, cultures, final x-ray reports which may not have been available during the time of the visit. Return immediately for any new symptoms, worsening of symptoms, or persistent symptoms * Attachments The following attachments cannot be sent through Care Everywhere. * Chronic Hypertension (AfterCare(R) Instructions(ER/ED)) (Tanzanian) documented in this encounter Medications at Time of Discharge MULTIVIT-MINERAL S/FERROUS FUM (MULTI VITAMIN ORAL)Indications :health Take 1 tablet by mouth medicine tech 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 omeprazole (PriLOSEC) 20 mg capsuleIndicatio ns:Treatment of Non-Bleeding Gastric Disorder Take 1 capsule (20 mg total) by mouth medicine tech 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 lisinopril-hydro CHLOROthiazide (ZESTORETIC) 20-12.5 mg per tabletIndication s:hypertension Take 1 tablet by mouth 2 (two) times a day 3 documented as of this encounter Discharge Disposition Disposition Code Departure Means Destination Discharge to home or self care documented in this encounter ED Notes * Glo Ford PA - 01/23/2022 2:36 PM CDT HPI Chief Complaint Patient presents with ??? Flank Pain HPI 2:36 PM Renee Luke is a 41 y.o. female presenting to the ED c/o right flank pain for the last 3 days but states that is getting worse. Patient states she has a history of kidney stones and has beentrying to drink a lot of water to flush it out. Also has a history of hypertension, denies any other health conditions. Patient states she took her blood pressure medication today. Denies nausea, vomiting, changes in vision. Denies pain or burning with urination, no noted blood in urine. Denies chest pain or shortness of breath, no other cardiac conditions. Patient states pain to her lower back is worse with weight-bearing on her right lower extremity. Patient History: Past Medical History: Diagnosis Date ??? Hypertension ??? Migraine Past Surgical History: Procedure Laterality Date ??? SECTION ??? HYSTERECTOMY ??? KIDNEY SURGERY Family History Problem Relation Age of Onset ??? Diabetes Neg Hx Social History Tobacco Use ??? Smoking status: Current Every Day Smoker Packs/day: 0.50 ??? Smokeless tobacco: Never Used Substance Use Topics ??? Alcohol use: No ??? Drug use: No Current Facility-Administered Medications: ??? lidocaine (LIDODERM) 5 % patch 1 patch, 1 patch, transdermal, Daily, 1 patch at 01/23/22 1413 Current Outpatient Medications: ??? lisinopril-hydroCHLOROthiazide (ZESTORETIC) 20-12.5 mg per tablet ??? MULTIVIT-MINERALS/FERROUS FUM (MULTI VITAMIN ORAL) ??? omeprazole (PriLOSEC) 20 mg capsule Review of Systems Review of Systems All systems reviewed and are neg or non contributory for this patients presentation today other than as stated in the HPI . Physical Exam ED Triage Vitals Temp Pulse Resp BP SpO2 01/23/22 1308 01/23/22 1308 01/23/22 1308 01/23/22 1310 01/23/22 1308 36.8 ??C (98.3 ??F) 97 20 (!) 196/153 96 % Temp src Heart Rate Source Patient Position BP Location FiO2 (%) -- 01/23/22 1348 01/23/22 1348 01/23/22 1348 -- Monitor Sitting Left arm Height Height Method Weight Weight Method 01/23/22 1308 01/23/22 1308 01/23/22 1308 01/23/22 1308 1.6 m (5' 3 ) Stated 82.6 kg (182 lb 1.6 oz) Standing scale Physical Exam Vitals and [...] Breath sounds: Normal breath sounds. Abdominal: General: There is no distension. Palpations: Abdomen is soft. Tenderness: There is no abdominal tenderness. There is no guarding. Musculoskeletal: Cervical back: Neck supple. Skin: General: Skin is warm and dry. Neurological: Mental Status: She is alert and oriented to person, place, and time. Procedures MDM Labs Reviewed DIFFERENTIAL AUTO - Abnormal Result Value Neutrophil abs 6.8 (*) Imm gran abs 0.0 Lymphocyte abs 2.1 Monocyte abs 0.7 Eosinophil abs 0.1 Basophil abs 0.0 Neutrophil pct 69.7 Imm gran pct 0.2 Lymphocyte pct 21.8 Monocyte pct 7.3 Eosinophil pct 0.7 Basophil pct 0.3 URINALYSIS AND REFLEX TO MICROSCOPIC AND CULTURE Color, ur Yellow Clarity, ur Clear Specific gravity, ur 1.015 pH, urine 8.5 Protein, ur ql Negative Glucose, ur ql Negative Ketones, ur Negative Bilirubin, ur Negative Blood, ur Negative Urobilinogen, ur 0.2 Nitrite, ur Negative Leukocyte esterase, ur Negative UA reflex comment Value: Reflex conditions for microscopic UA and culture not met. Narrative: Urine pH is affected by diet, medications, systemic acid-base disturbances, and renal tubular function. pH may affect urinary stone formation. For example, urine pH below 6.0 may help reduce the tendency for calcium phosphate stones and pH greater than 6.0 may reduce the tendency for uric acid stone formation. Source: [place] [employer].Last revised 08-22-2017 CBC WITH AUTO DIFFERENTIAL WBC 9.8 Hgb 15.2 Hct 43.0 Plt 294 MPV 9.2 RBC 4.97 MCV 86.5 MCH 30.6 MCHC 35.3 RDW CV 12.1 RDW SD 38.2 NRBC abs 0.00 COMPREHENSIVE METABOLIC PANEL Sodium 139 Potassium, pl 3.7 Chloride 104 CO2 24 Anion gap 11 BUN 11 Creatinine 0.60 Glucose 99 Calcium 9.6 Bilirubin, total 0.3 Protein, pl 7.7 Albumin 4.7 Alk phos 92 ALT 38 AST 31 TROPONIN T HIGH-SENSITIVITY SERIES (BASELINE, 2HR, 4HR, 6HR) Trop T hs <6 TROPONIN T HIGH-SENSITIVITY 2-HOUR Trop T hs 7 Trop T hs delta 1 Trop T hs interp Insignificant EGFR eGFR 115 TROPONIN T HIGH-SENSITIVITY 4-HR TROPONIN T HIGH-SENSITIVITY 6-HOUR CT Abdomen Pelvis WO Contrast Final Result EXAM DESCRIPTION: CT ABDOMEN PELVIS WO CONTRAST REASON FOR STUDY: Flank pain, kidney stone suspected ?? Rt flank pain for 3 days and getting worse. Hx Kidney stones. Drinking a lot of water to flush TECHNIQUE: CT scan of the abdomen and pelvis performed without intravenous and without oral contrast using helical scanning technique. Reconstructed coronal and sagittal MPR images reviewed. All images stored on PACS. Automated exposure control was used as a dose optimization technique for this examination. ? COMPARISON: Abdomen pelvis CT 11/26/2021 ? FINDINGS: The sensitivity for detection of visceral lesions is diminished without the use of intravenous contrast. ? LOWER CHEST: No significant pulmonary abnormalities. No effusion. ? LIVER: Hepatomegaly with diffuse hepatic steatosis and no focal lesion identified. ? GALLBLADDER: Normal size with subtle layering intraluminal hyperdensity that is nonspecific but suspect sludge and present on the 11/26/2021 exam. Otherwise unremarkable noncontrast appearance of the gallbladder. ? BILE DUCTS: No intrahepatic or extrahepatic ductal dilatation. ? SPLEEN: Normal size. No focal lesions. ? PANCREAS: No identified cystic or solid masses. No significant calcifications. No adjacent inflammation or peripancreatic fluid collections. Pancreatic duct not dilated. ? ADRENALS: Normal. ? KIDNEYS/URINARY TRACT: Kidneys are normal size without perinephric stranding. 4 mm left upper pole nonobstructive renal calculus. No additional renal or ureteral calculus. No hydronephrosis. Ureters normal diameter. Decompressed but otherwise normal appearance of the bladder. Noted several pelvic phleboliths around the bladder that do not represent distal ureteral calculi. ? GI: No dilated bowel loops. No obvious wall thickening. Normal appendix. Sigmoid colon diverticulosis without evidence of diverticulitis. ? PERITONEUM: No ascites or free air. ? RETROPERITONEUM: No mass or adenopathy. ? REPRODUCTIVE: No significant abnormality. ? VASCULATURE: No abdominal aortic aneurysm. ? MUSCULOSKELETAL: No acute finding or concerning lesion. Mild thoracolumbar degenerative disc disease. ? OTHER: No other abnormality. ? IMPRESSION: ? 1. No acute finding in the abdomen or pelvis. ?? 2. No obstructive uropathy or right-sided calculus. 4 mm left nonobstructing renal calculus. ?? 3. Hepatomegaly and hepatic steatosis. ?? 4. Sigmoid colon diverticulosis. BP (!) 178/112 (BP Location: Right arm, Patient Position: Sitting) Pulse 74 Temp 36.8 ??C (98.3??F) Resp 14 Ht 160 cm (5' 3 ) Wt 82.6 kg (182 lb 1.6 oz) SpO2 97% BMI 32.26 kg/m?? [facility] Course as of 01/23/22 1753 Time: 01/23 1359 Value: Urinalysis reflex to microscopic and culture Urine: Color, ur Yellow Clarity, ur Clear Specific gravity, ur 1.015 pH, urine 8.5 Protein, ur ql Negative Glucose, ur ql Negative Ketones, ur Negative Bilirubin, ur Negative Blood, ur Negative Urobilinogen, ur 0.2 Nitrite, ur Negative Leukocyte esterase, ur Negative UA reflex comment Reflex conditions for microscopic UA and culture not met. Comment: (Reviewed) By: Glo Ford PA Time: 01/23 1551 Value: Troponin T high-sensitivity 2-hour: Trop T hs 7 Trop T hs delta 1 Trop T hs interp Insignificant Comment: (Reviewed) By: Glo Ford PA Time: 01/23 1605 Value: CT Abdomen Pelvis WO Contrast Comment: IMPRESSION: ? 1. No acute finding in the abdomen or pelvis. ?? 2. No obstructive uropathy or right-sided calculus. 4 mm left nonobstructing renal calculus. ?? 3. Hepatomegaly and hepatic steatosis. ?? 4. Sigmoid colon diverticulosis. By: Glo Ford PA Time: 01/23 160 Comment: Blood pressure has decreased with medications given in ED, patient states pain is still about a 6/10. Discussed no CT findings to explain pain and kidney stones. Patient states she has an appointment with her urologist this Saturday. Discussed possible musculoskeletal relation of pain due toworse with certain movements. By: Glo Ford PA Time: 01/23 2990 Comment: All results were discussed with patient who states she has follow-up appointment with her urologist this Saturday. Instructed to keep this appointment for further evaluation of pain as well astake [id number] Tylenol and ibuprofen for further pain relief. Instructed to follow-up with PCP for further evaluation of hypertension, referral also sent to marketing coordinator for further evaluationand management of hypertension if it is persistent. Strict return precautions given. Patient expressed understanding and is agreeable to plan and discharge. All questions answered. By: Glo Ford PA This examination was transcribed using the Dot[employer] voice recognition system without human publication editor. In an effort to expedite patient care, this report has not been adjusted for typographical, grammatical, and syntax by a trained medical record coder. Close outpatient follow-up with a low threshold to return has been mandated , concerning symptoms have been emphasized in detail, and this patient expresses understanding Clinical Impression: Right flank pain Hypertension, unspecified type Glo Ford PA 01/23/22 676 Cosigned by Raghavendra Perdomo MD at 01/25/2022 7:32 AM CDT Associated attestation - Raghavendra Perdomo MD - 01/25/2022 7:32 AM CDT ED Attestation I did not see this patient. However, I was personally available for consultation in the ED for thispatient if the Advanced Practice Provider (ZE) needed any assistance. The ZE evaluated the patient independently and completed their own examination, documentation, and disposition. * Sandra Patel RN - 01/23/2022 1:07 PM CDT Rt flank pain for 3 days and getting worse. Hx Kidney stones. Drinking a lot of water to flush documented in this encounter Plan of Treatment Not on file documented as of this encounter Procedures Procedure Name Priority Date/Time Associated Diagnosis Comments TROPONIN T HIGH-SENSITIVITY 2-HOUR Timed 01/23/2022 3:[address] ABDOMEN PELVIS WO CONTRAST ED 01/23/2022 1:35 PM CDT URINALYSIS AND REFLEX TO MICROSCOPIC AND CULTURE STAT 01/23/2022 1:29 PM CDT ECG 12-LEAD STAT 01/23/2022 1:22 PM CDT TROPONIN T HIGH-SENSITIVITY SERIES (BASELINE, 2HR, 4HR, 6HR) STAT 01/23/2022 1:17 PM CDT EGFR STAT 01/23/2022 1:17 PM CDT DIFFERENTIAL AUTO STAT 01/23/2022 1:1 7 PM CDT CBC WITH AUTO DIFFERENTIAL STAT 01/23/2022 1:17 PM CDT COMPREHENSIVE METABOLIC PANEL STAT 01/23/2022 1:17 PM CDT documented in this encounter Results * Troponin T high-sensitivity 2-hour (01/23/2022 3:09 PM CDT) Trop T hs 7 <=14 ng/L CHARLEEN WILKINSON Comment: Interpretive Data For further hscTnT resources including the diagnostic algorithm and an aid in interpretation, copy and paste this link: https://nrl.testcatalog.org/show/hsTrop Current Interpretive Data last revised 2020. Testing performed by: [address] [address] Trop T hs delta 1 ng/L CHARLEEN Comment:Testing performed by : [address] [address] Trop T hs interp Insignificant CHARLEEN Comment:Testing performed by : [address] [address] Blood 01/23/2022 3:09 PM CDT 01/23/2022 3:13 PM CDT us [facility] BLOOD ORDERABLES Final Result CHARLEEN [address] [facility] Department [place] [address] * CT Abdomen Pelvis WO Contrast (01/23/2022 1:35 PM CDT) Anatomical Region Laterality Modality Body N/A Computed Tomogra phy 01/23/2022 1:42 PM CDT Narrative 01/23/2022 1:57 PM CDT EXAM DESCRIPTION: ?? CT ABDOMEN PELVIS WO CONTRAST REASON FOR STUDY: ?? Flank pain, kidney stone suspected ?? Rt flank pain for 3 days and getting worse. Hx Kidney stones. ??Drinking a lot of water to flush ?? TECHNIQUE: CT scan of the abdomen and pelvis performed without intravenous and ??without ??oral contrast using helical scanning technique. Reconstructed coronal and sagittal MPR images reviewed. All images stored on PACS. ?? Automated exposure control was used as a dose optimization technique for this examination. COMPARISON: ?? Abdomen pelvis CT 11/26/2021 FINDINGS: The sensitivity for detection of visceral lesions is diminished without the use of intravenous contrast. LOWER CHEST: ?? No significant pulmonary abnormalities. No effusion. LIVER: ?? Hepatomegaly with diffuse hepatic steatosis ??and no focal lesion identified. GALLBLADDER: ?? Normal size with subtle layering intraluminal hyperdensity ?? that is nonspecific but suspect sludge and present on the 11/26/2021 exam. ?? Otherwise unremarkable noncontrast appearance of the gallbladder. BILE DUCTS: ?? No intrahepatic or extrahepatic ductal dilatation. SPLEEN: ?? Normal size. ??No focal lesions. PANCREAS: ?? No identified cystic or solid masses. ??No significant calcifications. No adjacent inflammation or peripancreatic fluid collections. Pancreatic duct not dilated. ADRENALS: ?? Normal. KIDNEYS/URINARY TRACT: ?? Kidneys are normal size without perinephric stranding. ??4 mm left upper pole nonobstructive renal calculus. ??No additional renal or ureteral calculus. ??No hydronephrosis. ??Ureters normal diameter. ?? Decompressed but otherwise normal appearance of the bladder. ??Noted several pelvic phleboliths around the bladder that do not represent distal ureteral calculi. GI: ?? No dilated bowel loops. No obvious wall thickening. ??Normal appendix. ?? Sigmoid colon diverticulosis without evidence of diverticulitis. PERITONEUM: ?? No ascites or free air. RETROPERITONEUM: ?? No mass or adenopathy. REPRODUCTIVE: ?? No significant abnormality. VASCULATURE: ?? No abdominal aortic aneurysm. MUSCULOSKELETAL: ?? No acute finding or concerning lesion. ??Mild thoracolumbar degenerative disc disease. OTHER: ?? No other abnormality. IMPRESSION: 1. ?? No acute finding in the abdomen or pelvis. 2. ?? No obstructive uropathy or right-sided calculus. ??4 mm left nonobstructing renal calculus. 3. ?? Hepatomegaly and hepatic steatosis. 4. ?? Sigmoid colon diverticulosis. THIS IS AN ELECTRONICALLY VERIFIED FINAL REPORT 01/23/2022 1:57 PM - Electronically signed by ??Ishan Ernandez M.D. AG: AG D: ??01/23/2022 1:57 PM T: ??01/23/2022 1:57 PM Report ID: [id number] Reading Location: ??[id number] Procedure Note Ishan Ernandez MD - 01/23/2022 EXAM DESCRIPTION: CT ABDOMEN PELVIS WO CONTRAST REASON FOR STUDY: Flank pain, kidney stone suspected Rt flank pain for 3 days and getting worse. Hx Kidney stones. Drinking alot of water to flush TECHNIQUE: CT scan of the abdomen and pelvis performed without intravenousand without oral contrast using helical scanning technique. Reconstructed coronal and sagittal MPR images reviewed. All images stored on PACS. Automated exposure control was used as a dose optimization technique forthis examination. COMPARISON: Abdomen pelvis CT 11/26/2021 FINDINGS: The sensitivity for detection of visceral lesions is diminished without the use of intravenous contrast. LOWER CHEST: No significant pulmonary abnormalities. No effusion. LIVER: Hepatomegaly with diffuse hepatic steatosis and no focal lesion identified. GALLBLADDER: Normal size with subtle layering intraluminal hyperdensity that is nonspecific but suspect sludge and present on the 11/26/2021 exam. Otherwise unremarkable noncontrast appearance of the gallbladder. BILE DUCTS: No intrahepatic or extrahepatic ductal dilatation. SPLEEN: Normal size. No focal lesions. PANCREAS: No identified cystic or solid masses. No significant calcifications. No adjacent inflammation or peripancreatic fluidcollections. Pancreatic duct not dilated. ADRENALS: Normal. KIDNEYS/URINARY TRACT: Kidneys are normal size without perinephric stranding. 4 mm left upper pole nonobstructive renal calculus. Noadditional renal or ureteral calculus. No hydronephrosis. Ureters normal diameter. Decompressed but otherwise normal appearance of the bladder. Notedseveral pelvic phleboliths around the bladder that do not represent distalureteral calculi. GI: No dilated bowel loops. No obvious wall thickening. Normalappendix. Sigmoid colon diverticulosis without evidence of diverticulitis. PERITONEUM: No ascites or free air. RETROPERITONEUM: No mass or adenopathy. REPRODUCTIVE: No significant abnormality. VASCULATURE: No abdominal aortic aneurysm. MUSCULOSKELETAL: No acute finding or concerning lesion. Mildthoracolumbar degenerative disc disease. OTHER: No other abnormality. IMPRESSION: 1. No acute finding in the abdomen or pelvis. 2. No obstructive uropathy or right-sided calculus. 4 mm left nonobstructing renal calculus. 3. Hepatomegaly and hepatic steatosis. 4. Sigmoid colon diverticulosis. THIS IS AN ELECTRONICALLY VERIFIED FINAL REPORT 01/23/2022 1:57 PM - Electronically signed by Ishan Ernandez M.D. AG: LEO Report ID: [id number] Reading Location: [place] [address] [facility] CT PROCEDURES Final Res ult * Urinalysis reflex to microscopic and culture Urine (01/23/2022 1:29 PM CDT) Color, ur Yellow Yellow CHARLEEN WILKINSON Comment:Testing performed by : [address] [address] Clarity, ur Clear Clear CHARLEEN WILKINSON Comment:Testing performed by : [address] [address] Specific gravity, ur 1.015 1.003 - 1.030 CHARLEEN WILKINSON Comment:Testing performed by : [address] [address] pH, urine 8.5 CHARLEEN Comment:Testing performed by : [facility] [address] [place] [address], [place]., [address] Protein, ur ql Negative Negative CHARLEEN Comment:Testing performed by : [facility], [address] [place] [address], [place]., [address] Glucose, ur ql Negative Negative CHARLEEN Comment:Testing performed by : [address], [place]., [address] Ketones, ur Negative Negative CHARLEEN Comment:Testing performed by : [facility], [address] [place] [address], [place]., [address] Bilirubin, ur Negative Negative CHARLEEN Comment:Testing performed by : [address], [place]., [address] Blood, ur Negative Negative CHARLEEN Comment:Testing performed by : [address], [place]., [address] Urobilinogen, ur 0.2 <2.0 mg/dL CHARLEEN Comment:Testing performed by : [address], [place]., [address] Nitrite, ur Negative Negative CHARLEEN Comment:Testing performed by : [address], [place]., [address] Leukocyte esterase, ur Negative Negative CHARLEEN Comment:Testing performed by : [address], [place]., [address] UA reflex comment Reflex conditions for microscopic UA and culture not met. CHARLEEN Comment:Testing performed by : [address], [place]., [address] Urine 01/23/2022 1:29 PM CDT 01/23/2022 1:31 PM CDT Narrative CHARLEEN - 01/23/2022 1:40 PM CDT ?? Urine pH is affected by diet, medications, systemic acid-base disturbances, and renal tubular function. ??pH may affect urinary stone formation. ??For example, urine pH below 6.0 may help reduce the tendency for calcium phosphate stones and pH greater than 6.0 may reduce the tendency for uric acid stone formation. Source: [employer]. Last revised 08-22-2017 us [facility] MICROBIOLOGY - GENERAL ORDERABLES Final Result Performing Organization Address [facility] de Phone Number CHARLEEN [address] [facility] Department [place] [address] * ECG 12 lead (01/23/2022 1:22 PM CDT) Pathologist [facility] Ventricular Rate EKG/Min 87 BPM [facility] Atrial Rate 87 BPM [facility] DE-Interval (MSEC) 158 ms [facility] QRS-Interval (MSEC) 80 ms [facility] QT-Interval (MSEC) 382 ms [facility] QTc 459 ms [facility] P [place] 12 degrees [facility] R [place] 10 degrees [facility] T [place] 16 degrees [facility] Diagnosis Normal sinus rhythm Minimal voltage criteria for LVH, may be normal variant Borderline ECG No previous ECGs available [facility] 01/23/2022 1:22 PM CDT 01/23/2022 9:05 PM CDT us [facility] ECG ORDERABLES Final Resul t Performing Organization Address [facility] de Phone Number [facility] * eGFR (01/23/2022 1:17 PM CDT) Pathologist [facility] Health eGFR 115 mL/min/1. 73 m2 [facility] WILKINSON Comment: Interpretive [...] Current interpretive data was last reviewed 2021. Testing performed by: [address] [id number] Blood 01/23/2022 1:17 PM CDT 01/23/2022 1:25 PM CDT us [facility] BLO[facility] ORDERABLES Final Result [facility] [place] [address] * (ABNORMAL) Differential, auto (01/23/2022 1:17 PM CDT) Neutrophil abs 6.8(H) 1.7 - 6.5 K/cumm CHARLEEN Comment:Testing performed by : [address] [address] Imm gran abs 0.0 0.0 - 0.1 K/cumm CHARLEEN Comment:Testing performed by : [address] [address] Lymphocyte abs 2.1 0.8 - 3.3 K/cumm CHARLEEN Comment:Testing performed by : [address] [address] Monocyte abs 0.7 0.2 - 0.8 K/cumm CHARLEEN Comment:Testing performed by : [address] [address] Eosinophil abs 0.1 0.0 - 0.5 K/cumm CHARLEEN Comment:Testing performed by : [address] [address] Basophil abs 0.0 0.0 - 0.1 K/cumm CHARLEEN Comment:Testing performed by : [address] [address] Neutrophil pct 69.7 % [facility] Comment: Interpretive Data Percent cell count reference ranges are not reported, since discordance with absolute values may lead to misinterpretation of CBC data. Current Interpretive Data was last revised on 2017. Testing performed by: [address] [address] Imm gran pct 0.2 % [facility] Comment: Interpretive Data Percent cell count reference ranges are not reported, since discordance with absolute values may lead to misinterpretation of CBC data. Current Interpretive Data was last revised on 2017. Testing performed by: [address] [address] Lymphocyte pct 21.8 % [facility] Comment: Interpretive Data Percent cell count reference ranges are not reported, since discordance with absolute values may lead to misinterpretation of CBC data. Current Interpretive Data was last revised on 2017. Testing performed by: [address] [address] Monocyte pct 7.3 % [facility] Comment: Interpretive Data Percent cell count reference ranges are not reported, since discordance with absolute values may lead to misinterpretation of CBC data. Current Interpretive Data was last revised on 2017. Testing performed by: [address] [address] Eosinophil pct 0.7 % [facility] Comment: Interpretive Data Percent cell count reference ranges are not reported, since discordance with absolute values may lead to misinterpretation of CBC data. Current Interpretive Data was last revised on 2017. Testing performed by: [address] [address] Basophil pct 0.3 % [facility] Comment: Interpretive Data Percent cell count reference ranges are not reported, since discordance with absolute values may lead to misinterpretation of CBC data. Current Interpretive Data was last revised on 2017. Testing performed by: [address] [address] Blood 01/23/2022 1:17 PM CDT 01/23/2022 1:25 PM CDT [facility] ORDER[facility] Final Result Performing Organization Address [facility] Co de Phone Number [facility] [place] [address] * Troponin T high-sensitivity series (baseline, 2hr, 4hr, 6hr) (01/23/2022 1:17 PM CDT) Trop T hs <6 <=14 ng/L [facility]LEEN Comment: Interpretive Data For further hscTnT resources including the diagnostic algorithm and an aid in interpretation, copy and paste this link: https://nrl.testcatalog.org/show/hsTrop Current Interpretive Data last revised 2020. Testing performed by: [address] [address] Blood 01/23/2022 1:17 PM CDT 01/23/2022 1:25 PM CDT us [facility] ORDER[facility] Final Result Performing Organization Address [facility] Co de Phone Number CHARLEEN [address] [place] [address] * Comprehensive metabolic panel (01/23/2022 1:17 PM CDT) Sodium 139 135 - 145 mmol/L CHARLEEN Comment:Testing performed by : [address] [address] Potassium, pl 3.7 3.3 - 4.9 mmol/L [facility]LEEN Comment:Testing performed by : [address] [address] Chloride 104 97 - 110 mmol/L CHARLEEN Comment:Testing performed by : [address] [address] CO2 24 22 - 32 mmol/L [facility]EN Comment:Testing performed by : [address] [address] Anion gap 11 2 - 15 mmol/L [facility]EN Comment:Testing performed by : [address] [address] BUN 11 8 - 25 mg/dL [facility]LEEN Comment:Testing performed by : [address] [address] Creatinine 0.60 0.60 - 1.10 mg/dL [facility]LEEN Comment:Testing performed by : [address] [address] Glucose 99 70 - 199 mg/dL [facility] Comment: Interpretive Data Fasting glucose >/= 126 [...] Current interpretive data was last revised 2017. Testing performed by: [address] [address] Calcium 9.6 8.5 - 10.3 mg/dL CHARLEEN Comment:Testing performed by : [address] [address] Bilirubin, total 0.3 0.1 - 1.2 mg/dL [facility]EN Comment:Testing performed by : [address] [address] Protein, pl 7.7 6.5 - 8.5 g/dL [facility]LEEN Comment:Testing performed by : [address] [address] Albumin 4.7 3.5 - 5.0 g/dL [facility]EN Comment:Testing performed by : [address] [address] Alk phos 92 40 - 130 Units/L CHARLEEN Comment:Testing performed by : [address] [address] ALT 38 7 - 45 Units/L CHARLEEN Comment:Testing performed by : [address] [address] AST 31 10 - 45 Units/L CHARLEEN Comment:Testing performed by : [address] [address] Blood 01/23/2022 1:17 PM CDT 01/23/2022 1:25 PM CDT us [facility]LOOD ORDER[facility] Final Result [facility] [address] [facility] Department [place] [address] * CBC with auto differential (01/23/2022 1:17 PM CDT) WBC 9.8 3.8 - 9.9 K/cumm CHARLEEN Comment:Testing performed by : [address] [address] Hgb 15.2 11.9 - 15.5 g/dL [facility]LEEN Comment:Testing performed by : [address] [address] Hct 43.0 35.6 - 45.5 % [facility]LEEN Comment:Testing performed by : [address] [address] Plt 294 150 - 400 K/cumm CHARLEEN Comment:Testing performed by : [address] [address] MPV 9.2 9.1 - 12.3 fL CHARLEEN Comment:Testing performed by : [address] [address] RBC 4.97 3.90 - 5.20 M/cumm CHARLEEN Comment:Testing performed by : [address] [address] MCV 86.5 81.3 - 96.4 fL CHARLEEN Comment:Testing performed by : [address] [address] MCH 30.6 27.1 - 33.3 pg [facility] WILKINSON Comment:Testing performed by : [address], [address] MCHC 35.3 32.3 - 35.7 g/dL [facility] WILKINSON Comment:Testing performed by : [facility], [address] [place] [address]., [address] RDW CV 12.1 11.1 - 14.9 % CHARLEEN WILKINSON Comment:Testing performed by : [address] [address] RDW SD 38.2 35.7 - 48.1 fL CHARLEEN WILKINSON Comment:Testing performed by : [address] [address] NRBC abs 0.00 0.00 - 0.01 K/cumm CHARLEEN WILKINSON Comment:Testing performed by : [address] [address] Blood 01/23/2022 1:17 PM CDT 01/23/2022 1:25 PM CDT [facility]LOOD ORDER[facility] Final Result Performing Organization Address City/State/[facility] Co de Phone Number [facility]LE[facility] [address] [facility] Department [place] [address] documented in this encounter Visit Diagnoses Diagnosis Right flank pain- Primary Abdominal pain, unspecified site Hypertension, unspecified type documented in this encounter Administered Medications Inactive Administered Medications - up to 3 most recent administrations Medication Order MAR Action Action Date Dose Rate Site hydrALAZINE (APRESOLINE) injection 10 mg 10 mg, intravenous, Administer over 2 Minutes, Once, On Sat01/23/22 at 1316, For 1 dose, Indications: hypertensionIndicat ions:hypertension Given 01/23/2022 2:02 PM CDT 10 mg labetaloL (NORMODYNE,TRANDATE ) injection 20 mg 20 mg, intravenous, at 120 mL/hr, Administer over 2 Minutes, Once, On Sat01/23/22 at 1553, For 1 dose Given 01/23/2022 4:30 PM CDT 20 mg 120 mL/hr labetaloL (NORMODYNE,TRANDATE ) injection 40 mg 40 mg, intravenous, at 240 mL/hr, Administer over 2 Minutes, Once, On Sat01/23/22 at 1437, For 1 dose Given 01/23/2022 2:44 PM CDT 40 mg 240 mL/hr lidocaine (LIDODERM) 5 % patch 1 patch 1 patch, transdermal, Administer over 12 Hours, Daily, First dose on Sat01/23/22 at 1408, Do not cover the holes on the top side of the patch., Apply to affected area: back Medication Applied 01/23/2022 2:13 PM CDT 1 patch Other (Comment) morphine injection 2 mg 2 mg, intravenous, Administer over 4 Minutes, Once, On Sat01/23/22 at 1316, For 1 dose, Indications: PainIndications:Devante n Given 01/23/2022 1:28 PM CDT 2 mg morphine injection 2 mg 2 mg, intravenous, Administer over 4 Minutes, Once, On Sat01/23/22 at 1553, For 1 dose, Indications: PainIndications:Devante n Given 01/23/2022 4:28 PM CDT 2 mg documented in this encounter Discontinued Medications Medication Sig Discontinue Reason Start Date End Da te cyclobenzaprine (FLEXERIL) 10 mg tablet Take 1 tablet (10 mg total) by mouth every 8 (eight) hours as needed for muscle spasms Therapy completed 10/31/2020 01/23/2022 lisinopril (PRINIVIL,ZESTRIL) 20 mg tablet Take 20 mg by mouth daily. Alternate therapy 01/23/2022 ondansetron (ZOFRAN) 4 mg tablet Take 1 tablet (4 mg total) by mouth every 6 (six) hours Therapy completed 11/26/2021 01/23/2022 tamsulosin (FLOMAX) 0.4 mg extended release capsule Take 1 capsule (0.4 mg total) by mouth daily for 14 days Therapy completed 11/26/2021 01/23/2022 documented as of this encounter Historical Medications * This list may reflect changes made after this encounter. lisinopril-hydroC HLOROthiazide (ZESTORETIC) 20-12.5 mg per tabletIndications :hypertension Take 1 tablet by mouth 2 (two) times a day 08/15/2022 added in this encounter Active and Recently Administered Medications Times are shown in CDT. Scheduled Medication Order 01/21/2022 01/22/2022 01/23/2022 hydrALAZINE (APRESOLINE) injection 10 mg (COMPLETED) 10 mg, intravenous, Administer over 2 Minutes, Once, On Sat01/23/22 at 1316, For 1 dose, Indications: hypertension 1402 (Given - Provid er: Kelly Medina RN) labetaloL (NORMODYNE,TRANDATE) injection 20 mg (COMPLETED) 20 mg, intravenous, at 120 mL/hr, Administer over 2 Minutes, Once, On Sat01/23/22 at 1553, For 1 dose 1630 (Given - Provid er: Patti Bryan, KHADAR) labetaloL (NORMODYNE,TRANDATE) injection 40 mg (COMPLETED) 40 mg, intravenous, at 240 mL/hr, Administer over 2 Minutes, Once, On Sat01/23/22 at 1437, For 1 dose 1444 (Given - Provid er: Kelly Medina RN) lidocaine (LIDODERM) 5 % patch 1 patch 1 patch, transdermal, Administer over 12 Hours, Daily, First dose on Sat01/23/22 at 1408, Do not cover the holes on the top side of the patch., Apply to affected area: back 1413 (Medication Ze lied - Provider: Kelly Medina RN - Comment: right flank)1733 (Due: Medication Removed - Provider: Automatic Discharge Provider - Comment: Time automatically adjusted from order being discontinued) morphine injection 2 mg (COMPLETED) 2 mg, intravenous, Administer over 4 Minutes, Once, On Sat01/23/22 at 1316, For 1 dose, Indications: Pain 1328 (Given - Provid er: Tasia Díaz RN) morphine injection 2 mg (COMPLETED) 2 mg, intravenous, Administer over 4 Minutes, Once, On Sat01/23/22 at 1553, For 1 dose, Indications: Pain 1628 (Given - Provid er: Patti Bryan RN) documented in this encounter Care Teams Lead Retail Sales Associate Relationship Specialty Start Date End Date Damian Sadler MD PCP - General 11/29/16 05/18/22 documented as of this encounter
--- OUTSIDE RECORDS SUMMARY | 2024-08-17 01:54 | XMS_ITS | Encounter Summary ---
Author Organization [facility] Healthcare Address [address] [place] [address] Care Team Providers Care Power Reactor Supervisor Name Role Phone Miscellaneous, Not In File Primary Care Provider Unavailable Reason for Visit * Reason Comments Abdominal Pain Flank Pain Encounter Details Date Type Department Care Team (Late st Contact Info) Description 06/25/2022 10:50 AM REC THERAPIST - 06/25/2022 1:56 PM [facility] Emergency [facility] Emergency Department [facility] [place] [address] Ishan Rodriguez, DO [address] [facility] [place] [address] Pelvic pain (Primary Dx); Primary hypertension Discharge Disposition: Discharge to home or self care Social History Tobacco Use Types Packs/Day Years Used Date Smoking Tobacco: Every Day Cigarettes Smokeless Tobacco: Never Alcohol Use Standard Drinks/Week Comments No 0 (1 standard drink = 0.6 oz pur e alcohol) Comments No Sex and Gender Information Value Date Recorded Sex Assigned at Not on file Legal Sex Female 9:06 PM REC THERAPIST Gender Identity Female 10/01/2023 8:44 AM REC THERAPIST Sexual Orientation Straight 10/01/2023 8: 44 AM REC THERAPIST documented as of this encounter Last Filed Vital Signs Vital Sign Reading Time Taken Comments Blood Pressure 194/108 06/25/2022 1:35 PM REC THERAPIST Pulse 72 06/25/2022 1:35 PM REC THERAPIST Temperature 36.3 ??C (97.4 ??F) 06/25/2022 10:[address] Respiratory Rate 16 06/25/2022 1:35 PM REC THERAPIST Oxygen Saturation 95% 06/25/2022 1:35 PM REC THERAPIST Inhaled Oxygen Concentration - - Weight 79.9 kg (176 lb 2.4 oz) 06/25/2022 10:37 AM REC THERAPIST Height 160 cm (5' 3 ) 06/25/2022 10:37 AM REC THERAPIST Body Mass Index 31.2 06/25/2022 10:37 AM REC THERAPIST documented in this encounter Discharge Instructions * Discharge Instructions* Ishan Rodriguez DO - 06/25/2022 1:40 PM REC THERAPIST Call your primary care provider and transportation project manager to schedule follow-up for your high blood pressureand pelvic pain. Take ibuprofen as needed for pain. Return to the emergency room if new symptoms orconcerns. THERAPIST * Attachments The following attachments cannot be sent through Care Everywhere. * Chronic Hypertension (AfterCare(R) Instructions(ER/ED)) ([place]) * Pelvic Pain (AfterCare(R) Instructions(ER/ED)) ([place]) documented in this encounter Medications at Time of Discharge MULTIVIT-MINERALS/F ERROUS FUM (MULTI VITAMIN ORAL)Indications:he alth Take 1 tablet by mouth clinical documentation nurse 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 omeprazole (PriLOSEC) 20 mg capsuleIndications: Treatment of Non-Bleeding Gastric Disorder Take 1 capsule (20 mg total) by mouth clinical documentation nurse 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 lidocaine (GLYDO) 2 % jelly in applicator Apply 10 mL (200 mg total) topically nightly 1 applicator 2 06/26/20 22 HYDROcodone-acetami nophen (NORCO) 5-325 mg per tabletIndications:P ain Take 1-2 tablets by mouth every 4 (four) hours as needed for pain (1 tablet for mild to moderate pain or 2 tablets for severe pain) Do not exceed 8 tablets/day. 12 tablet 2 08/15/19 23 hydrocortisone (Anusol-HC) 2.5 % rectal cream Insert into the rectum 3 (three) times a day to affected areas 30 g 2 08/15/19 23 lidocaine (GLYDO) 2 % jelly in applicator Apply 10 mL (200 mg total) topically nightly 1 applicator 2 08/15/19 23 lisinopril-hydroCHL OROthiazide (ZESTORETIC) 20-12.5 mg per tabletIndications:h ypertension Take 1 tablet by mouth 2 (two) times a day 08/15/19 23 mesalamine (CANASA) 1,000 mg suppositoryIndicati ons:Ulcerative Proctitis Insert 1 suppository (1,000 mg total) into the rectum nightly 30 suppository 2 08/15/19 23 ondansetron ODT (ZOFRAN-ODT) 4 mg disintegrating tablet Take 1 tablet (4 mg total) by mouth every 8 (eight) hours as needed for nausea or vomiting 20 tablet 2 08/10/20 23 oxyCODONE-acetamino phen (PERCOCET) 5-325 mg per tabletIndications:P ain Take 1-2 tablets by mouth every 6 (six) hours as needed for pain 10 tablet 2 08/15/19 23 documented as of this encounter Discharge Disposition Disposition Code Departure Means Destination Discharge to home or self care documented in this encounter ED Notes * Ishan Rodriguez, DO - 06/25/2022 11:06 AM CST HPI Chief Complaint Patient presents with Abdominal Pain Flank Pain HPI 11:06 AM Renee Luke is a 42 y.o. female presenting to the ED c/o pelvic pain. Patient states pain in suprapubic region radiating to bilateral low back/flank. Pain is worse on the left. She states history of kidney stones. Pain started a 830 this morning. She denies any hematuria or other changesin urine. She has had some nausea, but attributes this to pain. No vomiting, diarrhea, constipation. She took her blood pressure medications this morning. Patient History: Past Medical History: Diagnosis Date Hypertension Migraine Past Surgical History: Procedure Laterality Date SECTION HYSTERECTOMY KIDNEY SURGERY Family History Problem Relation Age of Onset Diabetes Neg Hx Social History Tobacco Use Smoking status: Every Day Packs/day: 0.50 Types: Cigarettes Smokeless tobacco: Never Substance and Sexual Activity Drug use: No Sexual activity: Yes Partners: Male control/protection: Hysterectomy Alcohol Use: Not on file No current facility-administered medications for this encounter. Current Outpatient Medications: HYDROcodone-acetaminophen (NORCO) 5-325 mg per tablet hydrocortisone (Anusol-HC) 2.5 % rectal cream lidocaine (GLYDO) 2 % jelly in applicator lidocaine (GLYDO) 2 % jelly in applicator lisinopril-hydroCHLOROthiazide (ZESTORETIC) 20-12.5 mg per tablet mesalamine (CANASA) 1,000 mg suppository MULTIVIT-MINERALS/FERROUS FUM (MULTI VITAMIN ORAL) omeprazole (PriLOSEC) 20 mg capsule ondansetron ODT (ZOFRAN-ODT) 4 mg disintegrating tablet oxyCODONE-acetaminophen (PERCOCET) 5-325 mg per tablet Review of Systems Review of Systems Constitutional: Negative for fever. HENT: Negative for congestion. Eyes: Negative for visual disturbance. Respiratory: Negative for cough and shortness of breath. Cardiovascular: Negative for chest pain. Gastrointestinal: Positive for abdominal pain. Negative for vomiting. Genitourinary: Negative for difficulty urinating. Musculoskeletal: Negative for myalgias. Neurological: Negative for headaches. All other systems reviewed and are negative. Physical Exam ED Triage Vitals [06/25/22 1037] Temp Pulse Resp BP SpO2 36.3 ??C (97.4 ??F) 89 20 (!) 217/132 99 % Temp src Heart Rate Source Patient Position BP Location FiO2 (%) Oral -- -- -- -- Height Height Method Weight Weight Method 1.6 m (5' 3 ) Stated 79.9 kg (176 lb 2.4 oz) Standing scale Physical Exam Vitals and nursing note reviewed. Constitutional: Appearance: Normal appearance. She is well-developed. HENT: Head: Normocephalic and atraumatic. Nose: Nose normal. Mouth/Throat: Mouth: Mucous membranes are moist. Eyes: Pupils: Pupils are equal, round, and reactive to light. Cardiovascular: Rate and Rhythm: Normal rate and regular rhythm. Heart sounds: Normal heart sounds. Pulmonary: Effort: Pulmonary effort is normal. Breath sounds: Normal breath sounds. Abdominal: Palpations: Abdomen is soft. Tenderness: There is abdominal tenderness in the suprapubic area and left lower quadrant. There is no guarding or rebound. Musculoskeletal: General: No swelling. Cervical back: Neck supple. Skin: General: Skin is warm and dry. Neurological: Mental Status: She is alert. Mental status is at baseline. Psychiatric: Mood and Affect: Mood normal. Behavior: Behavior normal. Procedures MDM Labs Reviewed URINALYSIS AND REFLEX TO MICROSCOPIC AND CULTURE - Abnormal Result Value Color, ur Yellow Clarity, ur Clear Specific gravity, ur 1.015 pH, urine 5.0 Protein, ur ql Negative Glucose, ur ql 3+ (*) Ketones, ur Negative Bilirubin, ur Negative Blood, ur 1+ (*) Urobilinogen, ur <2.0 Nitrite, ur Negative Leukocyte [...] formation. Source: [facility] [employer].Last revised 08-22-2017 COMPREHENSIVE METABOLIC PANEL - Abnormal Sodium 142 Potassium, pl 3.9 Chloride 102 CO2 22 Anion gap 18 (*) BUN 9 Creatinine 0.50 (*) Glucose 138 Calcium 9.0 Bilirubin, total 0.2 Protein, pl 6.9 Albumin 4.3 Alk phos 85 ALT 27 AST 24 URINALYSIS, MICROSCOPIC ONLY - Abnormal WBC, ur 0-5 RBC, ur 0-2 Epithelial cells, squamous, ur 1-5 Bacteria, ur Trace (*) Mucous, ur Present (*) Culture Reflex Comment Value: Reflex conditions for urine culture (WBC >10) not met. CBC WITH AUTO DIFFERENTIAL WBC 8.6 Hgb 14.2 Hct 40.0 Plt 233 MPV 9.5 RBC 4.57 MCV 87.5 MCH 31.1 MCHC 35.5 RDW CV 12.3 RDW SD 39.5 NRBC abs 0.00 DIFFERENTIAL AUTO Neutrophil abs 6.2 Imm gran abs 0.0 Lymphocyte abs 1.7 Monocyte abs 0.5 Eosinophil abs 0.1 Basophil abs 0.0 Neutrophil pct 72.6 Imm gran pct 0.2 Lymphocyte pct 19.9 Monocyte pct 6.2 Eosinophil pct 0.8 Basophil pct 0.3 TROPONIN T HIGH-SENSITIVITY 2-HOUR Trop T hs <6 Trop T hs delta 0 Trop T hs interp Insignificant EGFR eGFR 119 TROPONIN T HIGH-SENSITIVITY SERIES (BASELINE, 2HR, 4HR, 6HR) Trop T hs <6 TROPONIN T HIGH-SENSITIVITY SERIES (BASELINE, 2HR, 4HR, 6HR) CT Abdomen Pelvis WO Contrast Final Result BP (!) 198/122 Pulse 59 Temp 36.3 ??C (97.4 ??F) (Oral) Resp 18 Ht 160 cm (5' 3 ) Wt 79.9kg (176 lb 2.4 oz) SpO2 97% BMI 31.20 kg/m?? MDM Amount and/or Complexity of Data Reviewed Clinical lab tests: reviewed Tests in the radiology section of CPT??: reviewed ED Course as of 06/25/22 1340 Time: 06/25 1337 Comment: Previous diagnosis states pelvic pain, but no documentation of kidney stones. Scan today negative with exception to simple appearing cyst of left ovary. Patient states history of hysterectomy and right ovary removal due to fibroids. Patient still sees gynecology for pelvic pain and monitoring of ovary. She is comfortable after pain medications. I am not concerned about torsion at this time. Stressed follow-up with gynecology and PCP for hypertension as blood pressure is still 194/108. By: Ishan Rodriguez DO This examination was transcribed using the [email or web address] voice recognition system without human grooming assistant. In an effort to expedite patient care, this report has not been adjusted for typographical, grammatical, and syntax by a trained medical assistant per diem. Clinical Impression: Pelvic pain Primary hypertension Ishan Rodriguez DO 06/25/22 1340 THERAPIST * Kelly Medina, KHADAR - 06/25/2022 10:36 AM CST Patient arrived to ED with complaints of bilateral flank pain that radiates into bilateral lower abdomen. Reports blood in stool but states it is from her hemorrhoid. Denies urinary symptoms. No painmedication taken prior to arrival. THERAPIST documented in this encounter Plan of Treatment Pending Results Name Type Priority Associated Diagnoses Date /Time Troponin T high-sensitivity series (baseline, 2hr, 4hr, 6hr) Lab STAT 2021 10:45 AM REC THERAPIST Scheduled Orders Name Type Priority Associated Diagnoses Orde r Schedule Troponin T high-sensitivity series (baseline, 2hr, 4hr, 6hr) Lab STAT Once for 1 Occur rences starting 06/25/2022 until 06/25/2022 documented as of this encounter Procedures Procedure Name Priority Date/Time Associated Diagnosis Comments TROPONIN T HIGH-SENSITIVITY 2-HOUR Timed 06/25/2022 12:[address] ABDOMEN PELVIS WO CONTRAST ED 06/25/2022 12:02 PM REC THERAPIST URINALYSIS AND REFLEX TO MICROSCOPIC AND CULTURE STAT 06/25/2022 11:11 AM REC THERAPIST URINALYSIS, MICROSCOPIC ONLY STAT 06/25/2022 11:11 AM REC THERAPIST ECG 12-LEAD STAT 06/25/2022 10:46 AM REC THERAPIST TROPONIN T HIGH-SENSITIVITY SERIES (BASELINE, 2HR, 4HR, 6HR) STAT 06/25/2022 10:45 AM REC THERAPIST EGFR STAT 06/25/2022 10:45 AM REC THERAPIST DIFFERENTIAL AUTO STAT 06/25/2022 10: 45 AM REC THERAPIST CBC WITH AUTO DIFFERENTIAL STAT 06/25/2022 10:45 AM REC THERAPIST COMPREHENSIVE METABOLIC PANEL STAT 06/25/2022 10:45 AM REC THERAPIST documented in this encounter Results * Troponin T high-sensitivity 2-hour (06/25/2022 12:19 PM REC THERAPIST) Trop T hs <6 <=14 ng/L CHARLEEN WILKINSON Comment: Interpretive Data For further hscTnT resources including the diagnostic algorithm and an aid in interpretation, copy and paste this link: https://nrl.testcatalog.org/show/hsTrop Current Interpretive Data last revised 2020. Testing performed by: [facility], [address] [place] [address]., [id number] Trop T hs delta 0 ng/L CHARLEEN WILKINSON Comment:Testing performed by : [facility], [address] [place] [address]., [id number] Trop T hs interp Insignificant CHARLEEN WILKINSON Comment:Testing performed by : [address] [address] Blood 06/25/2022 12:1 9 PM REC THERAPIST 06/25/2022 12:26 PM REC THERAPIST [facility] BLOOD ORDERABLES Sandra clifton Result Performing Organization Address City/State/[facility] Co de Phone Number CHARLEEN WILKINSON [address] [facility] Department [place] [address] * CT Abdomen Pelvis WO Contrast (06/25/2022 12:02 PM REC THERAPIST) Anatomical Region Laterality Modality Body N/A Computed Tomogra phy 06/25/2022 12:4 6 PM REC THERAPIST Narrative 06/25/2022 12:53 PM REC THERAPIST EXAM DESCRIPTION: ?? CT ABDOMEN PELVIS WO CONTRAST REASON FOR STUDY: ?? Flank pain, kidney stone suspected, Abdominal pain, acute, nonlocalized ?? c/o pelvic pain. ??Patient states pain in suprapubic region radiating to bilateral low back/flank. ??Pain is worse on the left. ??She states history of kidney stones. ??Pain started a 830 this morning. ??She denies any hematuria or other changes in urine. ?She has had some nausea, but attributes this to pain. ??No vomiting, diarrhea, constipation. ??She took her blood pressure medications this morning. ?? TECHNIQUE: CT scan of the abdomen and pelvis performed without intravenous and ??without ??oral contrast using helical scanning technique. Reconstructed coronal and sagittal MPR images reviewed. All images stored on PACS. ?? Automated exposure control was used as a dose optimization technique for this examination. COMPARISON: ?? 05/22/2022 FINDINGS: The sensitivity for detection of visceral lesions is diminished without the use of intravenous contrast. LOWER CHEST: ?? Lung bases are clear. ??The heart base appears normal. LIVER: ?? Mild hepatic steatosis. GALLBLADDER: ?? Mild sludge in the gallbladder. BILE DUCTS: ?? No intrahepatic or extrahepatic ductal dilatation. SPLEEN: ?? Normal size. ??No focal lesions. PANCREAS: ?? No identified cystic or solid masses. ??No significant calcifications. No adjacent inflammation or peripancreatic fluid collections. Pancreatic duct not dilated. ADRENALS: ?? Normal. KIDNEYS/URINARY TRACT: ?? No identified significant cystic or solid masses. No stones. No hydronephrosis or hydroureter. ?Urinary bladder is unremarkable. GI: ?? Normal appendix. ??No evidence of obstruction. ??No bowel wall thickening. Mild diverticulosis. PERITONEUM: ?? No ascites or free air. RETROPERITONEUM: ?? No mass or adenopathy. REPRODUCTIVE: ?? There is a 3.5 cm cyst in the left adnexa. ??The uterus is absent. VASCULATURE: ?? Atherosclerosis is seen in the great vessels, ??mild in severity. ?? MUSCULOSKELETAL: ?? No significant abnormality. OTHER: ?? No other abnormality. IMPRESSION: ?? 1. ?? No nephrolithiasis or acute abnormality. 2. ?? Simple, benign-appearing left adnexal cyst. REFERENCE: Unless otherwise specified, no follow-up imaging [...] Findings Committee. J Am Haris Radiol. 2017 Mar;14(8):8626-2939. THIS IS AN ELECTRONICALLY VERIFIED FINAL REPORT 06/25/2022 12:53 PM - Electronically signed by ??Jose R Acosta M.D. KN: DEMARCO D: ??06/25/2022 12:53 PM T: ??06/25/2022 12:53 PM Report ID: [id number] Reading Location: ??[id number] Procedure Note Jose R Acosta MD - 06/25/2022 EXAM DESCRIPTION: CT ABDOMEN PELVIS WO CONTRAST REASON FOR STUDY: Flank pain, kidney stone suspected, Abdominal pain,acute, nonlocalized c/o pelvic pain. Patient states pain in suprapubic region radiating to bilateral low back/flank. Pain is worse on the left. She states historyof kidney stones. Pain started a 830 this morning. She denies any hematuriaor other changes in urine. She has had some nausea, but attributes this to pain. No vomiting, diarrhea, constipation. She took her blood pressure medications this morning. TECHNIQUE: CT scan of the abdomen and pelvis performed without intravenousand without oral contrast using helical scanning technique. Reconstructed coronal and sagittal MPR images reviewed. All images stored on PACS. Automated exposure control was used as a dose optimization technique forthis examination. COMPARISON: 05/22/2022 FINDINGS: The sensitivity for detection of visceral lesions is diminished without the use of intravenous contrast. LOWER CHEST: Lung bases are clear. The heart base appears normal. LIVER: Mild hepatic steatosis. GALLBLADDER: Mild sludge in the gallbladder. BILE DUCTS: No intrahepatic or extrahepatic ductal dilatation. SPLEEN: Normal size. No focal lesions. PANCREAS: No identified cystic or solid masses. No significant calcifications. No adjacent inflammation or peripancreatic fluidcollections. Pancreatic duct not dilated. ADRENALS: Normal. KIDNEYS/URINARY TRACT: No identified significant cystic or solid masses.No stones. No hydronephrosis or hydroureter. Urinary bladder isunremarkable. GI: Normal appendix. No evidence of obstruction. No bowel wallthickening. Mild diverticulosis. PERITONEUM: No ascites or free air. RETROPERITONEUM: No mass or adenopathy. REPRODUCTIVE: There is a 3.5 cm cyst in the left adnexa. The uterus is absent. VASCULATURE: Atherosclerosis is seen in the great vessels, mild in severity. MUSCULOSKELETAL: No significant abnormality. OTHER: No other abnormality. IMPRESSION: 1. No nephrolithiasis or acute abnormality. 2. Simple, benign-appearing left adnexal cyst. REFERENCE: Unless otherwise specified, no follow-up imaging is recommendedfor incidental renal and adrenal lesions per consensus recommendations basedon imaging criteria. Further lab evaluation could be pursued based onclinical findings. Management of the Incidental Renal Mass on CT: A White Paper of the ACR Incidental Findings Committee. J Am Haris Radiol. 2018 Feb;15(2):264-273. Management of Incidental Adrenal Masses: A White Paper of the ACRIncidental Findings Committee. J Am Haris Radiol. 2017 Mar;14(8):6283-7915. THIS IS AN ELECTRONICALLY VERIFIED FINAL REPORT 06/25/2022 12:53 PM - Electronically signed by Jose R Acosta M.D. KN: DEMARCO Report ID: [id number] Reading Location: [place] [address] [facility] [address] PROCEDURES Final R esult * (ABNORMAL) Urinalysis, microscopic only (06/25/2022 11:11 AM REC THERAPIST) WBC, ur 0-5 0 - 5 /HPF CHARLEEN Comment:Testing performed by : [address] [address] RBC, ur 0-2 0 - 2 /HPF CHARLEEN Comment:Testing performed by : [address] [address] Epithelial cells, squamous, ur 1-5 0 - 5 /HPF CHARLEEN Comment:Testing performed by : [address] [address] Bacteria, ur Trace(A) CHARLEEN Comment:Testing performed by : [address] [address] Mucous, ur Present(A) CHARLEEN Comment:Testing performed by : [address] [address] Culture Reflex Comment Reflex conditions for urine culture (WBC >10) not met. CHARLEEN Comment:Testing performed by : [address] [address] Urine 06/25/2022 11:1 1 AM REC THERAPIST 06/25/2022 11:16 AM REC THERAPIST [facility] URINE ORDERABLES Sandra l Result CHARLEEN [address] [facility] Department [place] [address] * (ABNORMAL) Urinalysis reflex to microscopic and culture Urine (06/25/2022 11:11 AM REC THERAPIST) Color, ur Yellow Yellow CHARLEEN WILKINSON Comment:Testing performed by : [facility] [address] [place] [address]., [id number] Clarity, ur Clear Clear CHARLEEN Comment:Testing performed by : [address] [address] Specific gravity, ur 1.015 1.003 - 1.030 CHARLEEN Comment:Testing performed by : [address] [address] pH, urine 5.0 CHARLEEN Comment:Testing performed by : [address], [place]., [address] Protein, ur ql Negative Negative CHARLEEN Comment:Testing performed by : [address] [address] Glucose, ur ql 3+(A) Negative CHARLEEN Comment:Testing performed by : [address] [address] Ketones, ur Negative Negative CHARLEEN Comment:Testing performed by : [address] [address] Bilirubin, ur Negative Negative CHARLEEN Comment:Testing performed by : [address] [address] Blood, ur 1+(A) Negative CHARLEEN Comment:Testing performed by : [address] [address] Urobilinogen, ur <2.0 <2.0 mg/dL CHARLEEN Comment:Testing performed by : [address] [address] Nitrite, ur Negative Negative CHARLEEN Comment:Testing performed by : [address] [address] Leukocyte esterase, ur Negative Negative CHARLEEN Comment:Testing performed by : [address] [address] UA reflex comment Reflex to microscopic UA will be performed. CERNER Comment:Testing performed by : [facility], [address] [place] [address], [place]., [address] Urine 06/25/2022 11:1 1 AM REC THERAPIST 06/25/2022 11:16 AM REC THERAPIST Narrative CHARLEEN - 06/25/2022 11:53 AM REC THERAPIST ?? Urine pH is affected by diet, medications, systemic acid-base disturbances, and renal tubular function. ??pH may affect urinary stone formation. ??For example, urine pH below 6.0 may help reduce the tendency for calcium phosphate stones and pH greater than 6.0 may reduce the tendency for uric acid stone formation. Source: [facility] [employer]. Last revised 08-22-2017 [facility] MICROBIOLOGY - GENERA L ORDERABLES Final Result Performing Organization Address [facility] Co de Phone Number CHARLEEN [address] [facility] Department [place] [address] * ECG 12 lead (06/25/2022 10:46 AM REC THERAPIST) Ventricular Rate EKG/Min 73 BPM [facility] Atrial Rate 73 BPM [facility] PA-Interval (MSEC) 156 ms [facility] QRS-Interval (MSEC) 78 ms [facility] QT-Interval (MSEC) 388 ms [facility] QTc 427 ms [facility] P [place] 15 degrees [facility] R [place] 24 degrees [facility] T [place] 2 degrees [facility] Diagnosis Normal sinus rhythm Nonspecific ST abnormality Abnormal ECG When compared with ECG of 23-JAN-2022 13:22, No significant change was found [facility] 06/25/2022 10:4 6 AM REC THERAPIST 06/25/2022 6:51 PM REC THERAPIST Sh[facility] ORDERABLES Final Res ult Performing Organization Address [facility] Co de Phone Number [facility] * Troponin T high-sensitivity series (baseline, 2hr, 4hr, 6hr) (06/25/2022 10:45 AM REC THERAPIST) Trop T hs <6 <=14 ng/L CHARLEEN WILKINSON Comment: Interpretive Data For further hscTnT resources including the diagnostic algorithm and an aid in interpretation, copy and paste this link: https://nrl.testcatalog.org/show/hsTrop Current Interpretive Data last revised 2020. Testing performed by: [facility], [address] [place] [address]., [id number] Blood 06/25/2022 10:4 5 AM REC THERAPIST 06/25/2022 10:51 AM REC THERAPIST us Shab[facility] BLOOD ORDERABLES Sandra clifton Result CHARLEEN WILKINSON [address] [facility] Department [place] [address] * eGFR (06/25/2022 10:45 AM REC THERAPIST) [facility] eGFR 119 mL/min/1. 73 m2 CHARLEEN WILKINSON Comment: Interpretive [...] was last reviewed 2021. Testing performed by: [address] [address] Blood 06/25/2022 10:4 5 AM REC THERAPIST 06/25/2022 10:51 AM REC THERAPIST [facility] BLOOD ORDERABLES Sandra etienne Result [facility] [address] [facility] [facility] [place] [address] * Differential, auto (06/25/2022 10:45 AM REC THERAPIST) Neutrophil abs 6.2 1.7 - 6.5 K/cumm [facility] Comment:Testing performed by : [address] [address] Imm gran abs 0.0 0.0 - 0.1 K/cumm [facility] Comment:Testing performed by : [address] [address] Lymphocyte abs 1.7 0.8 - 3.3 K/cumm [facility] Comment:Testing performed by : [address] [address] Monocyte abs 0.5 0.2 - 0.8 K/cumm [facility] Comment:Testing performed by : [address] [address] Eosinophil abs 0.1 0.0 - 0.5 K/cumm [place] Comment:Testing performed by : [address] [address] Basophil abs 0.0 0.0 - 0.1 K/cumm [place] Comment:Testing performed by : [address] [address] Neutrophil pct 72.6 % [facility] Comment: Interpretive Data Percent cell count reference ranges are not reported, since discordance with absolute values may lead to misinterpretation of CBC data. Current Interpretive Data was last revised on 2017. Testing performed by: [address] [place] [address] Imm gran pct 0.2 % [facility] Comment: Interpretive Data Percent cell count reference ranges are not reported, since discordance with absolute values may lead to misinterpretation of CBC data. Current Interpretive Data was last revised on 2017. Testing performed by: [address] [address] Lymphocyte pct 19.9 % [facility] Comment: Interpretive Data Percent cell count reference ranges are not reported, since discordance with absolute values may lead to misinterpretation of CBC data. Current Interpretive Data was last revised on 2017. Testing performed by: [address] [address] Monocyte pct 6.2 % [facility] Comment: Interpretive Data Percent cell count reference ranges are not reported, since discordance with absolute values may lead to misinterpretation of CBC data. Current Interpretive Data was last revised on 2017. Testing performed by: [address] [address] Eosinophil pct 0.8 % [facility] Comment: Interpretive Data Percent cell count reference ranges are not reported, since discordance with absolute values may lead to misinterpretation of CBC data. Current Interpretive Data was last revised on 2017. Testing performed by: [address] [address] Basophil pct 0.3 % [facility] Comment: Interpretive Data Percent cell count reference ranges are not reported, since discordance with absolute values may lead to misinterpretation of CBC data. Current Interpretive Data was last revised on 2017. Testing performed by: [address] [address] Blood 06/25/2022 10:4 5 AM REC THERAPIST 06/25/2022 10:51 AM REC THERAPIST us Shabnam [facility] BLOOD ORDERABLES Sandra clifton Result [facility] [address] [facility] Department of Laboratories [place], [place] [id number] * CBC with auto differential (06/25/2022 10:45 AM REC THERAPIST) [facility] Signature WBC 8.6 3.8 - 9.9 K/cumm [facility] WIL[facility]INSON Comment:Testing performed by : [address], [address] Hgb 14.2 11.9 - 15.5 g/dL [facility] Comment:Testing performed by : [address], [address] Hct 40.0 35.6 - 45.5 % [facility] Comment:Testing performed by : [address], [address] Plt 233 150 - 400 K/cumm [facility] Comment:Testing performed by : [address], [address] MPV 9.5 9.1 - 12.3 fL [facility] Comment:Testing performed by : [address], [address] RBC 4.57 3.90 - 5.20 M/cumm [facility] Comment:Testing performed by : [address], [address] MCV 87.5 81.3 - 96.4 fL [facility] Comment:Testing performed by : [address], [address] MCH 31.1 27.1 - 33.3 pg [facility] Comment:Testing performed by : [address], [address] MCHC 35.5 32.3 - 35.7 g/dL [facility] Comment:Testing performed by : [address], [address] RDW CV 12.3 11.1 - 14.9 % [facility] Comment:Testing performed by : [address], [address] RDW SD 39.5 35.7 - 48.1 fL [facility] Comment:Testing performed by : [address], [address] NRBC abs 0.00 0.00 - 0.01 K/cumm [facility] Comment:Testing performed by : [address] [address] Blood 06/25/2022 10:4 5 AM REC THERAPIST 06/25/2022 10:51 AM REC THERAPIST us Shabnam [facility] BLOOD ORDERABLES Sandra l Result [facility] [address] [facility] Department [place] [address] * (ABNORMAL) Comprehensive metabolic panel (06/25/2022 10:45 AM REC THERAPIST) Sodium 142 135 - 145 mmol/L [facility] Comment:Testing performed by : [address] [address] Potassium, pl 3.9 3.3 - 4.9 mmol/L [facility] Comment:Testing performed by : [address] [address] Chloride 102 97 - 110 mmol/L [facility] Comment:Testing performed by : [address] [address] CO2 22 22 - 32 mmol/L [facility] Comment:Testing performed by : [address] [address] Anion gap 18(H) 2 - 15 mmol/L [facility] Comment:Testing performed by : [address] [address] BUN 9 8 - 25 mg/dL [facility] Comment:Testing performed by : [address] [address] Creatinine 0.50(L) 0.60 - 1.10 mg/dL [facility] Comment:Testing performed by : [address] [address] Glucose 138 70 - 199 mg/dL [facility] Comment: Interpretive [...] was last revised 2017. Testing performed by: [address] [address] Calcium 9.0 8.5 - 10.3 mg/dL [facility] Comment:Testing performed by : [address] [address] Bilirubin, total 0.2 0.1 - 1.2 mg/dL [facility] Comment:Testing performed by : [address] [address] Protein, pl 6.9 6.5 - 8.5 g/dL [facility] Comment:Testing performed by : [address] [address] Albumin 4.3 3.5 - 5.0 g/dL [place] Comment:Testing performed by : [address] [address] Alk phos 85 40 - 130 Units/L [facility] Comment:Testing performed by : [address] [address] ALT 27 7 - 45 Units/L [facility] Comment:Testing performed by : [address] [address] AST 24 10 - 45 Units/L [facility] Comment:Testing performed by : [address] [address] Blood 06/25/2022 10:4 5 AM REC THERAPIST 06/25/2022 10:51 AM REC THERAPIST us Shabnam [facility] BLOOD ORDERABLES Sandra clifton Result [facility] WILKIN[facility] [address] [facility] Department [place] [address] documented in this encounter Visit Diagnoses Diagnosis Pelvic pain- Primary Primary hypertension Unspecified essential hypertension documented in this encounter Administered Medications Inactive Administered Medications - up to 3 most recent administrations Medication Order MAR Action Action Date Dose Rate Site HYDROmorphone (DILAUDID) injection 0.5 mg 0.5 mg, intravenous, Administer over 2 Minutes, Once, On Sat06/25/22 at 1107, For 1 dose Given 06/25/2022 11:15 AM REC THERAPIST 0.5 mg documented in this encounter Active and Recently Administered Medications Times are shown in REC THERAPIST. 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
--- OUTSIDE RECORDS SUMMARY | 2024-08-17 01:54 | XMS_ITS | Encounter Summary ---
Author Organization [facility] Healthcare Address [address] [place] [address] Care Team Providers Care Information Assurance Engineer Name Role Phone Miscellaneous, Not In File Primary Care Provider Unavailable Reason for Visit * Reason Comments Abdominal Pain Encounter Details Date Type Department Care Team (Late st Contact Info) Description 05/27/2022 1:56 PM CDT - 05/27/2022 7:32 PM CDT Emergency [facility] Emergency Department [address] [place] [phone] Rectal bleeding (Primary Dx); LLQ abdominal pain; Proctitis Discharge Disposition: Discharge to home or self care Social History Tobacco Use Types Packs/Day Years Used Date Smoking Tobacco: Every Day Cigarettes Smokeless Tobacco: Never Alcohol Use Standard Drinks/Week Comments No 0 (1 standard drink = 0.6 oz pur e alcohol) Comments No Sex and Gender Information Value Date Recorded Sex Assigned at Not on file Legal Sex Female 9:06 PM CNC SERVICE ENGINEER Gender Identity Female 10/01/2023 8:44 AM CNC SERVICE ENGINEER Sexual Orientation Straight 10/01/2023 8: 44 AM CNC SERVICE ENGINEER documented as of this encounter Last Filed Vital Signs Vital Sign Reading Time Taken Comments Blood Pressure 201/120 05/27/2022 7:00 PM CDT Pulse 70 05/27/2022 7:00 PM CDT Temperature 36.8 ??C (98.2 ??F) 05/27/2022 1:40 PM CD T Respiratory Rate 16 05/27/2022 7:00 PM CDT Oxygen Saturation 96% 05/27/2022 7:00 PM CDT Inhaled Oxygen Concentration - - Weight 79.4 kg (175 lb) 05/27/2022 1:40 PM CDT Height 160 cm (5' 3 ) 05/27/2022 1:40 PM CDT Body Mass Index 31 05/27/2022 1:40 PM CDT documented in this encounter Discharge Instructions * Discharge Instructions* Glo Corey PA - 05/27/2022 7:02 PM CDT You were seen here today for abdominal pain and rectal bleeding. Continue to use hydrocortisone, rectal suppositories. We have refilled your lidocaine - use 10ml topically on the rectum nightly. You may take Hydrocodone for severe pain. Otherwise, use tylenol as needed for pain. The max dose of Tylenol daily is 4000 mg. Since hydrocodone does contain Tylenol please keep this in mind when taking additional doses of Tylenol. You have an appointment with colorectal surgery at the beginning of nextmonth. Please keep this appointment. Return to the ER if you notice severe worsening of pain, fever above 100 degrees, severe rectal bleeding or pain, nausea, vomiting, or if your vomit contains blood or looks like coffee grounds. * Attachments The following attachments cannot be sent through Care Everywhere. * Proctitis (AfterCare(R) Instructions(ER/ED)) (Jordanian) * Gastrointestinal Bleeding (AfterCare(R) Instructions(ER/ED)) (Jordanian) documented in this encounter Medications at Time of Discharge MULTIVIT-MINERALS/F ERROUS FUM (MULTI VITAMIN ORAL)Indications:he alth Take 1 tablet by mouth sr. social media & mobile manager 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 omeprazole (PriLOSEC) 20 mg capsuleIndications: Treatment of Non-Bleeding Gastric Disorder Take 1 capsule (20 mg total) by mouth sr. social media & mobile manager 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 lidocaine (GLYDO) 2 % jelly [...] 08/15/19 23 documented as of this encounter Ordered Prescriptions Prescription Sig Dispense Quantity Refills Last Filled Start Date End Date lidocaine (GLYDO) 2 % jelly in applicator Apply 10 mL (200 mg total) topically nightly 1 applicator 05/27/2022 2 HYDROcodone-acetam inophen (NORCO) 5-325 mg per tabletIndications: Pain Take 1-2 tablets by mouth every 4 (four) hours as needed for pain (1 tablet for mild to moderate pain or 2 tablets for severe pain) Do not exceed 8 tablets/day. 12 tablet 05/27/2022 3 documented in this encounter Discharge Disposition Disposition Code Departure Means Destination Discharge to home or self care documented in this encounter ED Notes * Glo Corey PA - 05/27/2022 7:32 PM CDT HPI Chief Complaint Patient presents with Abdominal Pain HPI Renee Luke is a 42 y.o. female with history of uncontrolled hypertension, migraines, kidney stones, ovarian cyst, and external hemorrhoids, who presents with abdominal pain and rectal bleeding. Pain is located in the LLQ described as a pressure, crampy sensation that is continuous but fluctuates in severity. Pain seems to be worse after eating. No other modifying or alleviating factors. She also notes bloody diarrhea for the past week. She notes several liquid bowel movements per day (about 3per hour, sometimes less and usually every other or every third episode contains blood, as well). She notes associated nausea, but no vomiting. She has been seen 2 times in the ER here for similar symptoms - first on 05/19 at which time she had CT suggestive of proctitis. She was discharged with Mesalamine nightly along with Oxycodone 5-325 mg every 6h PRN. She says these did provide some improvement of symptoms. She was also given referral to colorectal surgery and internal medicine and was able to get an appointment for June 18 with colorectal surgery. She however returned to the ER on05/22 due to ongoing pain and new onset of bloody BMs. She was noted to have internal and external hemorrhoids on exam. At that time, given her known follow-up with colorectal and stable VS and hgb, she was discharged home with follow-up as already scheduled. She was sent home with hydrocortisone rectal suppos, lidocaine, and another refill of Oxycodone 5 mg q4h PRN. She reports significant relief with lidocaine and hydrocortisone. She did mention that she has run out of the Oxycodone that was most recently prescribed. Of note, patient has not had a colonoscopy. Pt states she ultimately came here today due to ongoing pain and concern that she will be unable to make it to her appointment on 06/18. She denies fever, chills, dysuria, hematuria, pain or burning with urination, abnormal vaginal bleeding, sweats, or weight loss. No lightheadedness, dizziness, chest pain, or SOB. Patient History: Patient Active Problem List Diagnosis Date Noted Acute right flank pain 11/11/2018 Strain of [...] fever. HENT: Negative for ear pain and trouble swallowing. Eyes: Negative for visual disturbance. Respiratory: Negative for cough, shortness of breath and wheezing. Cardiovascular: Negative for chest pain, palpitations and leg swelling. Gastrointestinal: Positive for abdominal pain, blood in stool, diarrhea and nausea. Negative for constipation and vomiting. Genitourinary: Negative for difficulty urinating, dysuria and hematuria. Musculoskeletal: Negative for back pain and neck pain. Skin: Negative for rash and wound. Neurological: Negative for dizziness, syncope, weakness, light-headedness, numbness and headaches. All other systems reviewed and are negative. Physical Exam ED Triage Vitals [05/27/22 1340] Temp Pulse Resp BP SpO2 36.8 ??C (98.2 ??F) 94 18 (!) 207/149 100 % Temp src Heart Rate Source Patient Position BP Location FiO2 (%) Oral -- -- -- -- Height Height Method Weight Weight Method 1.6 m (5' 3 ) Stated 79.4 kg (175 lb) Stated Physical Exam Vitals and nursing note reviewed. Constitutional: General: She is not in acute distress. Appearance: She is not ill-appearing. HENT: Head: Normocephalic and atraumatic. Mouth/Throat: Mouth: Mucous membranes are moist. Pharynx: Oropharynx is clear. Eyes: Conjunctiva/sclera: Conjunctivae normal. Cardiovascular: Rate and Rhythm: Normal rate and regular rhythm. Pulses: Normal pulses. Heart sounds: Normal heart sounds. No murmur heard. Pulmonary: Effort: Pulmonary effort is normal. Breath sounds: Normal breath sounds. No wheezing, rhonchi or rales. Abdominal: General: Abdomen is flat. Bowel sounds are normal. Palpations: Abdomen is soft. There is no mass. Tenderness: There is no right CVA tenderness or left CVA tenderness. Comments: Mild tenderness with palpation of LLQ no rebound or guarding Genitourinary: Rectum: Guaiac result negative. Comments: Several external hemorrhoids that are not thrombosed, no active bleeding Musculoskeletal: General: No swelling or tenderness. Normal range of motion. Cervical back: Normal range of motion and neck supple. Right lower leg: No edema. Left lower leg: No edema. Skin: General: Skin is warm and dry. Capillary Refill: Capillary refill takes less than 2 seconds. Neurological: General: No focal deficit present. Mental Status: She is alert and oriented to person, place, and time. [facility] Renee Luke is a 42 y.o. female with history of uncontrolled hypertension, migraines, kidney stones, ovarian cyst, and external hemorrhoids, who presents with LLQ abdominal pain described as pressure, crampy sensation for the past 2-3 weeks and diarrhea occasionally bloody x 1 week. Has already been seen twice for similar symptoms, initially on 05/19 at which time she had CT suggestive of proctitis. She was discharged with Mesalamine nightly along with Oxycodone 5-325 mg every 6h PRN with someimprovement of pain. She was also given referral to colorectal surgery and internal medicine and was able to get an appointment for June 18 with colorectal surgery. She however returned to the ER on 05/22 due to ongoing pain and new onset of bloody BMs. She was noted to have internal and external hemorrhoids on exam. At that time, given her known follow-up with colorectal and stable VS and Hgb, she was discharged home with follow-up as already scheduled. She was sent home with hydrocortisone rectal suppos, lidocaine, and another refill of Oxycodone 5 mg q4h PRN. She reports significant relief with lidocaine and hydrocortisone and has run out of pain meds. She ultimately reports that she is unsure she will be able to make it until her appointment on 06/18. Pt is hypertensive, but is otherwise hemodynamically stable, afebrile. On exam, RRR no murmur, LCTAB, abdomen minimally ttp in LLQ, several non-thrombosed external hemorrhoids, guaiac negative. Differential diagnosis includes proctitis, external or internal hemorrhoids, diverticulosis (less likely diverticulitis), ovarian cyst, UTI. Plan for CBC, CMP, UA. Patient had a CT abdomen/pelvis when here 5 days ago for identical complaints. Discussed that there would be no utility of repeating this scan given her pain has not changed, and has actually improved slightly with pain regimen, and no new fever or worsening symptoms. Dispo pending results. ED Course as of 06/11/22 0938 Time: 05/27 1846 Comment: EKG with NSR, rate 62, LVH, similar to prior EKG 02/2022. It appears per review of chart that patient has had elevated BP on other visits with similar complaints - likely uncontrolled at baseline and elevated given current pain. Discussed that regardless this high of blood pressure is concerning and can predispose to stroke heart attack, etc. She was given her home doses of BP meds here.She does have an appointment with her primary to adjust these medications soon. By: Glo Corey PA Time: 05/27 1854 Comment: Discussed all results with patient including labs that are wnl (hemoglobin stable). Discussed that we will defer further imaging with CT since she just had one when she was here 5 days ago. Will provide refill of lidocaine suppos that she ran out of and a very short course of hydrocodone to get her to her appointment in June. Discussed that she should use this sparingly and only for severe breakthrough pain. Pt voices understanding and is in agreement with plan. Strict return precautions were provided. By: Glo Corey PA Final diagnoses: LLQ abdominal pain Rectal bleeding Proctitis Glo Corey PA 06/11/2236 Glo Corey PA 06/11/2238 * Becca Bates RN - 05/27/2022 1:56 PM CDT Bed: ED3- Expected date: Expected time: Means of arrival: Car Comments: Becca Bates RN 05/27/22 1356 * Justice Nieto RN - 05/27/2022 1:42 PM CDT Patient presents to the ED with complain of abdominal pain and bloody stools. Patient states she was seen on the and told to follow up with colorectal surgery. Patient states she cannot get in to see them until Jun 18. Patient states the abdominal pain has increased and she has intermittent bloody stools. +Nausea. Hypertensive in triage to 207/194. A/Ox4. documented in this encounter Miscellaneous Notes * ED Procedure Note - Jeanne Gimenez MD - 05/27/2022 6:33 PM CDT Associated Order(s): ECG 12 lead Procedure ECG 12 lead Date/Time: 05/27/2022 6:33 PM Performed by: Jeanne Gimenez MD Authorized by: Glo Corey PA Rate: ECG rate: 62 ECG rate assessment: normal Rhythm: Rhythm: sinus rhythm Ectopy: Ectopy: none QRS: QRS axis: Normal QRS intervals: Normal Conduction: Conduction: normal ST segments: ST segments: Normal T waves: T waves: normal Other findings: Other findings: LVH Previous ECG: Previous ECG: Compared to current Date of previous EC02/22/2022 Similarity: No change Interpretation: Interpretation: No significant change Recommended Follow-up: Recommended follow up: further workup in the ED Comments: ECG obtained for abdominal pain Jeanne Gimenez MD 05/27/22 1835 documented in this encounter Plan of Treatment Not on file documented as of this encounter Procedures Procedure Name Priority Date/Time Associated Diagnosis Comments ECG 12-LEAD Routine 05/27/2022 6:33 PM CDT URINALYSIS AND REFLEX TO MICROSCOPIC STAT 05/27/2022 3:04 PM CDT URINALYSIS, MICROSCOPIC ONLY STAT 05/27/2022 3:04 PM CDT EGFR STAT 05/27/2022 2:32 PM CDT DIFFERENTIAL AUTO STAT 05/27/2022 2:3 2 PM CDT CBC WITH AUTO DIFFERENTIAL STAT 05/27/2022 2:32 PM CDT LIPASE STAT 05/27/2022 2:32 PM CDT COMPREHENSIVE METABOLIC PANEL STAT 05/27/2022 2:32 PM CDT documented in this encounter Results * ECG 12-LEAD (05/27/2022 6:33 PM CDT) Narrative MUSE C - 05/27/2022 6:33 PM CDT Jeanne Gimenez MD ? 05/27/2022 ??6:35 PM ECG 12 lead Date/Time: 05/27/2022 6:33 PM Performed by: Jeanne Gimenez MD Authorized by: Glo Corey PA Rate: ??ECG rate: ??62 ??ECG rate assessment: normal ?? Rhythm: ??Rhythm: sinus rhythm ?? Ectopy: ??Ectopy: none ?? QRS: ??QRS axis: ??Normal ??QRS intervals: ??Normal Conduction: ??Conduction: normal ?? ST segments: ??ST segments: ??Normal T waves: ??T waves: normal ?? Other findings: ??Other findings: LVH ?? Previous ECG: ??Previous ECG: ??Compared to current ??Date of previous ECG: ??02/22/2022 ??Similarity: ??No change Interpretation: ??Interpretation: No significant change ?? Recommended Follow-up: ??Recommended follow up: further workup in the ED ?? Comments: ?? ECG obtained for abdominal pain us Glo [place] ECG ORDERABLES Final Result Performing Organization Address [facility] de Phone Number [facility] * (ABNORMAL) Urinalysis, microscopic only (05/27/2022 3:04 PM CDT) WBC, ur 0-5 0 - 5 /HPF [facility] RBC, ur 0-2 0 - 2 /HPF [facility] Epithelial cells, squamous, ur 11-20(A) 0 - 5 /HPF [facility] Comment:Suggestive of contam ination. Consider recollection by clean catch. Bacteria, ur 1+(A) [facility] Mucous, ur Present(A ) [facility] Calcium oxalate crystals, ur 2+(A) [facility] Urine 05/27/2022 3:04 PM CDT 05/27/2022 3:24 PM CDT us Jameel Irene MD LAB URINE ORDERABLES Sandra l Result Performing Organization Address [facility] de Phone Number [facility] Department [place] [address] * (ABNORMAL) Urinalysis reflex to microscopic (05/27/2022 3:04 PM CDT) Color, ur Yellow Yellow [facility] Clarity, ur Clear Clear [facility] Specific gravity, ur 1.032(H) 1.003 - 1.030 [facility] pH, urine 6.5 [facility] Protein, ur ql 1+(A) Negative [facility] Glucose, ur ql Trace(A) Negative [facility] Ketones, ur Negative Negative [facility] Bilirubin, ur Negative Negative [facility] Blood, ur Negative Negative [facility] Urobilinogen, ur <2.0 <2.0 mg/dL [facility] Nitrite, ur Negative Negative [facility] Leukocyte esterase, ur Negative Negative [facility] UA reflex comment Reflex to microscopic UA will be performed. [facility] Urine 05/27/2022 3:04 PM CDT 05/27/2022 3:24 PM CDT Narrative [facility] - 05/27/2022 3:31 PM CDT ?? Urine pH is affected by diet, medications, systemic acid-base disturbances, and renal tubular function. ??pH may affect urinary stone formation. ??For example, urine pH below 6.0 may help reduce the tendency for calcium phosphate stones and pH greater than 6.0 may reduce the tendency for uric acid stone formation. Source: [facility] [place]. Last revised 08-22-2017 us Jameel Irene MD LAB URINE ORDERABLES Sandra clifton Result [facility] Department [place] [address] * eGFR (05/27/2022 2:32 PM CDT) Pathologist [facility] eGFR >90 90 - 130 mL/min/1. 73 m2 [facility] Comment: Interpretive Data Reference Interval Normal ?>/= [...] interpretive data was last reviewed 2021. Blood 05/27/2022 2:32 PM CDT 05/27/2022 2:49 PM CDT us Jameel Irene MD LAB BLOOD ORDERABLES Sandra clifton Result [facility] Department [place] [address] * Differential, auto (05/27/2022 2:32 PM CDT) Pathologist [facility] Neutrophil abs 6.2 1.7 - 6.5 K/cumm [facility] Imm gran abs 0.0 0.0 - 0.1 K/cumm [facility] Lymphocyte abs 2.7 0.8 - 3.3 K/cumm [facility] Monocyte abs 0.8 0.2 - 0.8 K/cumm [facility] Eosinophil abs 0.2 0.0 - 0.5 K/cumm [facility] Basophil abs 0.0 0.0 - 0.1 K/cumm [facility] Neutrophil pct 62.4 % [facility] Comment: Interpretive Data Percent cell count reference ranges are not reported, since discordance with absolute values may lead to misinterpretation of CBC data. Current Interpretive Data was last revised on 2017. Imm gran pct 0.3 % [facility] Comment: Interpretive Data Percent cell count reference ranges are not reported, since discordance with absolute values may lead to misinterpretation of CBC data. Current Interpretive Data was last revised on 2017. Lymphocyte pct 27.2 % [facility] Comment: Interpretive Data Percent cell count reference ranges are not reported, since discordance with absolute values may lead to misinterpretation of CBC data. Current Interpretive Data was last revised on 2017. Monocyte pct 8.2 % [facility] Comment: Interpretive Data Percent cell count reference ranges are not reported, since discordance with absolute values may lead to misinterpretation of CBC data. Current Interpretive Data was last revised on 2017. Eosinophil pct 1.5 % [facility] Comment: Interpretive Data Percent cell count reference ranges are not reported, since discordance with absolute values may lead to misinterpretation of CBC data. Current Interpretive Data was last revised on 2017. Basophil pct 0.4 % [facility] Comment: Interpretive Data Percent cell count reference ranges are not reported, since discordance with absolute values may lead to misinterpretation of CBC data. Current Interpretive Data was last revised on 2017. Blood 05/27/2022 2:32 PM CDT 05/27/2022 2:49 PM CDT Jameel Irene MD LAB BLOOD ORDERABLES Sandra clifton Result [facility] Department [place] [address] * Lipase (05/27/2022 2:32 PM CDT) Lipase 28 10 - 99 Units/L [facility] Blood (Blood, Venous) 05/27/2022 2:32 PM CDT 05/27/2022 2:49 PM CDT Jameel Irene MD LAB BLOOD ORDERABLES Sandra clifton Result [facility] Department [place] [address] * (ABNORMAL) Comprehensive metabolic panel (05/27/2022 2:32 PM CDT) Sodium 140 135 - 145 mmol/L [facility] Potassium, pl 3.9 3.3 - 4.9 mmol/L [facility] Chloride 107 97 - 110 mmol/L [facility] CO2 24 22 - 32 mmol/L [facility] Anion gap 9 2 - 15 mmol/L [facility] BUN 12 8 - 25 mg/dL [facility] Creatinine 0.59(L) 0.60 - 1.10 mg/dL [facility] Glucose 93 70 - 199 mg/dL [facility] Comment: Interpretive Data Fasting glucose >/= 126 [...] interpretive data was last revised 2017. Calcium 9.0 8.5 - 10.3 mg/dL [facility] Bilirubin, total 0.2 0.1 - 1.2 mg/dL [facility] Protein, pl 6.9 6.5 - 8.5 g/dL [facility] Albumin 4.2 3.5 - 5.0 g/dL [facility] Alk phos 84 40 - 130 Units/L [facility] ALT 26 7 - 45 Units/L [facility] AST 19 10 - 45 Units/L [facility] Blood 05/27/2022 2:32 PM CDT 05/27/2022 2:49 PM CDT Jameel Irene MD LAB BLOOD ORDERABLES Sandra l Result Performing Organization Address [facility] Co de Phone Number [facility] [place] [address] * (ABNORMAL) CBC with auto differential (05/27/2022 2:32 PM CDT) [facility] WBC 10.0(H) 3.8 - 9.9 K/cumm [facility] Hgb 14.1 11.9 - 15.5 g/dL [facility] Hct 39.9 35.6 - 45.5 % [facility] Plt 262 150 - 400 K/cumm [facility] MPV 9.9 9.1 - 12.3 fL [facility] RBC 4.67 3.90 - 5.20 M/cumm [facility] MCV 85.4 81.3 - 96.4 fL [facility] MCH 30.2 27.1 - 33.3 pg [facility] MCHC 35.3 32.3 - 35.7 g/dL [facility] RDW CV 12.1 11.1 - 14.9 % [facility] RDW SD 37.4 35.7 - 48.1 fL [facility] NRBC abs 0.00 0.00 - 0.01 K/cumm [facility] Blood (Blood, Venous) 05/27/2022 2:32 PM CDT 05/27/2022 2:49 PM CDT Jameel Irene MD LAB BLOOD ORDERABLES Sandra l Result Performing Organization Address [facility] Co de Phone Number [facility] [place] [address] documented in this encounter Visit Diagnoses Diagnosis Rectal bleeding- Primary Hemorrhage of rectum and anus LLQ abdominal pain Abdominal pain, left lower quadrant Proctitis Other specified disorder of rectum and anus documented in this encounter Administered Medications Inactive Administered Medications - up to 3 most recent administrations Medication Order MAR Action Action Date Dose Rate Site hydroCHLOROthiazide (HYDRODIURIL) tablet 12.5 mg 12.5 mg, oral, Once, On 05/27/22 at 1620, For 1 dose Given 05/27/2022 4:57 PM CDT 12.5 mg lisinopriL (PRINIVIL,ZESTRIL) tablet 20 mg 20 mg, oral, Once, On 05/27/22 at 1900, For 1 dose Given 05/27/2022 7:18 PM CDT 20 mg morphine injection 4 mg 4 mg, intravenous, Administer over 4 Minutes, Once, On 05/27/22 at 1620, For 1 dose Given 05/27/2022 4:57 PM CDT 4 mg documented in this encounter Active and Recently Administered Medications Times are shown in CDT. Scheduled Medication Order 05/25/2022 05/26/2022 05/27/2022 hydroCHLOROthiazide (HYDRODIURIL) tablet 12.5 mg (COMPLETED) 12.5 mg, oral, Once, On 05/27/22 at 1620, For 1 dose 1657 (Given - Provid er: Marisabel García RN) lisinopriL (PRINIVIL,ZESTRIL) tablet 20 mg (COMPLETED) 20 mg, oral, Once, On 05/27/22 at 1900, For 1 dose 1918 (Given - Provid er: Marisabel García RN) morphine injection 4 mg (COMPLETED) 4 mg, intravenous, Administer over 4 Minutes, Once, On 05/27/22 at 1620, For 1 dose 1657 (Given - Provid er: Marisabel García RN - Comment: endtime 1701) documented in this encounter Orders Nursing Count Last Ordered Date First Orde red Date MISCELLANEOUS NURSING CARE ORDER (SPECIFY) 1 05/27/2022 IV Count Last Ordered Date First Orde red Date SALINE LOCK IV 1 05/27/2022 documented in this encounter Care Teams Information Assurance Engineer Relationship Specialty Start Date End Date Miscellaneous, Not In File PCP - General 05/19/2208/14/ 3 documented as of this encounter
--- OUTSIDE RECORDS SUMMARY | 2024-08-17 01:54 | XMS_ITS | Encounter Summary ---
Author Organization [facility] Healthcare Address [address] [place] [address] Care Team Providers Care Rheostat Assembler Name Role Phone Miscellaneous, Not In File Primary Care Provider Unavailable Reason for Visit * Reason Comments Abdominal Pain Leg Pain Arm Pain Encounter Details Date Type Department Care Team (Late st Contact Info) Description 06/26/2022 8:49 AM ECHOCARDIOGRAPHY TECH - 06/26/2022 10:46 AM ECHOCARDIOGRAPHY TECH Emergency [facility] Emergency Department [address] [place] [address] Laci Vo MD [address] [address] [place] [address] Pain (Primary Dx); Abdominal pain, left lower quadrant; Sciatic pain, left Discharge Disposition: Discharge to home or self care Social History Tobacco Use Types Packs/Day Years Used Date Smoking Tobacco: Every Day Cigarettes Smokeless Tobacco: Never Alcohol Use Standard Drinks/Week Comments No 0 (1 standard drink = 0.6 oz pur e alcohol) Comments No Sex and Gender Information Value Date Recorded Sex Assigned at Not on file Legal Sex Female 9:06 PM ECHOCARDIOGRAPHY TECH Gender Identity Female 10/01/2023 8:44 AM ECHOCARDIOGRAPHY TECH Sexual Orientation Straight 10/01/2023 8: 44 AM ECHOCARDIOGRAPHY TECH documented as of this encounter Last Filed Vital Signs Vital Sign Reading Time Taken Comments Blood Pressure 203/130 06/26/2022 8:06 AM ECHOCARDIOGRAPHY TECH Pulse 87 06/26/2022 8:05 AM ECHOCARDIOGRAPHY TECH Temperature 36.8 ??C (98.2 ??F) 06/26/2022 8:05 AM CS T Respiratory Rate 14 06/26/2022 8:05 AM ECHOCARDIOGRAPHY TECH Oxygen Saturation 97% 06/26/2022 8:05 AM ECHOCARDIOGRAPHY TECH Inhaled Oxygen Concentration - - Weight 81.6 kg (180 lb) 06/26/2022 8:05 AM ECHOCARDIOGRAPHY TECH Height 160 cm (5' 3 ) 06/26/2022 8:05 AM ECHOCARDIOGRAPHY TECH Body Mass Index 31.89 06/26/2022 8:05 AM ECHOCARDIOGRAPHY TECH documented in this encounter Discharge Instructions * Discharge Instructions* Laci Vo MD - 06/26/2022 10:36 AM ECHOCARDIOGRAPHY TECH As we discussed we are going to take him multimodal pain approach to your ongoing pain. This will include taking the prescribed gabapentin, celecoxib medicine, using the Voltaren gel. These are 3 prescription medicines. Please also take scheduled Tylenol. Lidocaine patches may also be helpful. These are more expensive as a prescription then buying them [id number]. You can purchase 4% lidocaine patches at [employer] or [employer] or other drug stores. Please follow up very closely with your GI specialist on Saturday and then your OBGYN and family medicine doctor and the weeks following as we discussed. If you have sudden other worsening change in symptoms that are concerning to you please returnto medical care. CARDIOGRAPHY TECH documented in this encounter Medications at Time of Discharge MULTIVIT-MINERALS/F ERROUS FUM (MULTI VITAMIN ORAL)Indications:he alth Take 1 tablet by mouth early childhood special educator 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 omeprazole (PriLOSEC) 20 mg capsuleIndications: Treatment of Non-Bleeding Gastric Disorder Take 1 capsule (20 mg total) by mouth early childhood special educator 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 lidocaine (GLYDO) 2 % jelly in applicator Apply 10 mL (200 mg total) topically nightly 1 applicator 2 06/26/20 22 celecoxib (CeleBREX) 50 mg capsule Take 1 capsule (50 mg total) by mouth 2 (two) times a day 60 capsule 2 07/26/20 22 diclofenac sodium (VOLTAREN) 1 % gel Apply 2 g topically 3 (three) times a day 100 g 2 08/15/19 23 gabapentin (NEURONTIN) 300 mg capsule Take 1 capsule (300 mg total) by mouth 3 (three) times a day For post-herpetic neuralgia: Take 1 tablet on day 1, Then take 2 tablets on day 2, Then take 3 tablets on day 3 and every day after that as instructed by your doctor. 90 capsule 11 2 01/29/20 24 HYDROcodone-acetami nophen (NORCO) 5-325 mg [...] Refills Last Filled Start Date End Date diclofenac sodium (VOLTAREN) 1 % gel Apply 2 g topically 3 (three) times a day 100 g 06/26/2022 3 celecoxib (CeleBREX) 50 mg capsule Take 1 capsule (50 mg total) by mouth 2 (two) times a day 60 capsule 06/26/2022 2 gabapentin (NEURONTIN) 300 mg capsule Take 1 capsule (300 mg total) by mouth 3 (three) times a day For post-herpetic neuralgia: Take 1 tablet on day 1, Then take 2 tablets on day 2, Then take 3 tablets on day 3 and every day after that as instructed by your doctor. 90 capsule 11 06/26/2022 4 documented in this encounter Discharge Disposition Disposition Code Departure Means Destination Discharge to home or self care documented in this encounter ED Notes * Errol Velasquez MD - 06/26/2022 9:40 AM CST HPI Chief Complaint Patient presents with Abdominal Pain Leg Pain Arm Pain HPI The patient is a 42-year-old male with a past medical history of hypertension, migraines, kidney stones, ovarian cyst, hemorrhoids presenting to the emergency room today due to left leg pain and abdominal pain. Patient has presented to the emergency room multiple times in the past several months for abdominal pain. The pain she is experiencing today is unchanged from previous visits. Pain is locat ed in the left lower quadrant. Her leg pain which he says is new as of yesterday. Pain is located in the posterior were less leg. The pain is worse when she is sitting and then going from a sitting from standing position. She describes the pain as a shooting electric pain that goes from her left back down her left leg. Yesterday patient took Tylenol ibuprofen and says the pain was improved for about 3 hours. Patient also endorses bloody stools although that is not present in her stool mostly present after she wipes. Patient also has known hemorrhoids which she is seen Colorectal surgery for this Saturday. Patient History: Patient Active Problem List Diagnosis [...] and palpitations. Gastrointestinal: Positive for abdominal pain, blood in stool and diarrhea. Negative for vomiting. Genitourinary: Negative for dysuria and hematuria. Musculoskeletal: Positive for arthralgias and back pain. Skin: Negative for color change and rash. Neurological: Negative for seizures and syncope. All other systems reviewed and are negative. Physical Exam ED Triage Vitals Temp Pulse Resp BP SpO2 06/26/2280406/26/2280406/26/2280406/26/22 0806/26/22804 36.8 ??C (98.2 ??F) 87 14 (!) 203/130 97 % Temp src Heart Rate Source Patient Position BP Location FiO2 (%) 06/26/22804 -- -- -- -- Oral Height Height Method Weight Weight Method 06/26/22804 -- 06/26/22804 -- 1.6 m (5' 3 ) 81.6 kg (180 lb) Physical Exam Vitals and nursing note reviewed. Constitutional: General: She is not in acute distress. Appearance: She is well-developed. She is not ill-appearing. HENT: Head: Normocephalic and atraumatic. Eyes: Conjunctiva/sclera: Conjunctivae normal. Cardiovascular: Rate and Rhythm: Normal rate and regular rhythm. Heart sounds: No murmur heard. Pulmonary: Effort: Pulmonary effort is normal. No respiratory distress. Breath sounds: Normal breath sounds. Abdominal: Palpations: Abdomen is soft. Tenderness: There is abdominal tenderness in the left lower quadrant. There is guarding. Musculoskeletal: General: No swelling. Cervical back: Neck supple. Comments: On straight leg raise test patient is only able to lift her left leg about 30?? before she experiences pain. On straight leg test patient is able to raise her right leg to about 60-70 degrees without pain. She does not have any pain in the contralateral leg when lifting this leg. Patient states this has a numb sensation in her left lower extremity. Although arm numbness does not follow anatomical distribution of any nerve. Patient does not have saddle paresthesia. Patient has 5/5 strength in lower extremities. Skin: General: Skin is warm and dry. Capillary Refill: Capillary refill takes less than 2 seconds. Neurological: Mental Status: She is alert. Psychiatric: Mood and Affect: Mood normal. MDM The patient is a 42-year-old male with a past medical history of hypertension, migraines, kidney stones, ovarian cyst, hemorrhoids presenting to the emergency room today due to left leg pain and abdominal pain. Vital signs on arrival are stable. Physical exam listed above. As far as her abdominal pain goes this has been unchanged from previous visits. It appears that she is received opioids multiple times in the past for this condition although I fear that this is not beneficial to her as it has not improved her pain there is a high risk of dependence. I do not think that the patient necessitates opioid pain medications at this time. As far as patient's rectal bleeding it was already been worked up in the emergency room determined to be hemorrhoids and she has outpatient follow-up with colorectal surgery on Saturday. Her symptoms most likely fit to a radiculopathy. At this time I do not feel that the patient needs any further imaging as her last CT scan yesterday did not show any concerning findings. She is also received CT scan about a month ago that did not show any findings. I believe that the patient would benefit from celecoxib therapy outpatient. She is a long and knownhistory of GI irritation and upset from nonselective NSAIDs. Also I believe this is a better optionthan opiate pain medications for this patient's pain. The patient would greatly benefit from selective NSAID. She will also be treated with lidocaine patch, Voltaren gel, Tylenol to help with her pain. At this time she is safe for discharge as she has follow-up with GI, OBGYN in her family physician in the next week. Errol Velasquez MD Emergency Medicine PGY 1 Portions of the record may have been created with voice recognition software. Occasional wrong-word or '[id number]' substitutions may have occurred due to the inherent limitations of voice recognition software. Read the chart carefully and recognize, using context, where substitutions have occurred. Attending Summary of Care Pain Abdominal pain, left lower quadrant Sciatic pain, left Errol Velasquez MD Resident 06/26/22 1511 Cosigned by Laci Vo MD at 06/26/2022 3:28 PM ECHOCARDIOGRAPHY TECH CARDIOGRAPHY TECH CARDIOGRAPHY TECH Associated attestation - Laci Vo MD - 06/26/2022 3:28 PM ECHOCARDIOGRAPHY TECH I have seen and examined the patient on 06/26/2022. I agree with the findings and plan of care as documented in the resident's note. * Yanni Suarez RN - 06/26/2022 8:49 AM CST Bed: ED2[facility] Expected date: Expected time: Means of arrival: Car Comments: Yanni Suarez RN 06/26/22 0849 CARDIOGRAPHY TECH * Sabas Vargas RN - 06/26/2022 8:03 AM CST Patient coming to the ED with complaints of lower abdominal pain x 3 days. Patient reports that gordy is starting to have stabbing pain to her right arm and her left leg starting from her abdomen. Patient also states she is being treated for a protruding hemorrhoid. Ambulatory in triage does not appear to be in any distress. CARDIOGRAPHY TECH documented in this encounter Plan of Treatment Not on file documented as of this encounter Procedures Procedure Name Priority Date/Time Associated Diagnosis Comments POCT HCG, URINE Routine 06/26/2022 9:25 AM ECHOCARDIOGRAPHY TECH URINALYSIS AND REFLEX TO MICROSCOPIC STAT 06/26/2022 9:03 AM ECHOCARDIOGRAPHY TECH EGFR STAT 06/26/2022 8:22 AM ECHOCARDIOGRAPHY TECH DIFFERENTIAL AUTO STAT 06/26/2022 8:2 2 AM ECHOCARDIOGRAPHY TECH CBC WITH AUTO DIFFERENTIAL STAT 06/26/2022 8:22 AM ECHOCARDIOGRAPHY TECH LIPASE STAT 06/26/2022 8:22 AM ECHOCARDIOGRAPHY TECH COMPREHENSIVE METABOLIC PANEL STAT 06/26/2022 8:22 AM ECHOCARDIOGRAPHY TECH documented in this encounter Results * POCT hCG, urine (06/26/2022 9:25 AM ECHOCARDIOGRAPHY TECH) HCG, ur, POC Negative Lot Number [id number] QC Backgroud Clear Acceptable QC Control Line Acceptable Urine 06/26/2022 9:25 AM ECHOCARDIOGRAPHY TECH Laci Vo MD POINT OF CARE TEST ORDERABLES Final Result * Urinalysis reflex to microscopic (06/26/2022 9:03 AM ECHOCARDIOGRAPHY TECH) Color, ur Straw Yellow [facility] Clarity, ur Clear Clear [facility] Specific gravity, ur 1.009 1.003 - 1.030 [facility] pH, urine 6.0 [facility] Protein, ur ql Negative Negative [facility] Glucose, ur ql Negative Negative [facility] Ketones, ur Negative Negative [facility] Bilirubin, ur Negative Negative [facility] Blood, ur Negative Negative [facility] Urobilinogen, ur <2.0 <2.0 mg/dL [facility] Nitrite, ur Negative Negative [facility] Leukocyte esterase, ur Negative Negative [facility] UA reflex comment Reflex conditions for microscopic UA not met. [facility] Urine 06/26/2022 9:03 AM ECHOCARDIOGRAPHY TECH 06/26/2022 9:20 AM ECHOCARDIOGRAPHY TECH Narrative [facility] - 06/26/2022 9:43 AM ECHOCARDIOGRAPHY TECH ?? Urine pH is affected by diet, medications, systemic acid-base disturbances, and renal tubular function. ??pH may affect urinary stone formation. ??For example, urine pH below 6.0 may help reduce the tendency for calcium phosphate stones and pH greater than 6.0 may reduce the tendency for uric acid stone formation. Source: [place] [employer]. Last revised 08-22-2017 us Laci Vo MD LAB URINE ORDERABLES Final Re sult [facility] Department [place] [address] * eGFR (06/26/2022 8:22 AM ECHOCARDIOGRAPHY TECH) eGFR >90 90 - 130 mL/min/1. 73 m2 [facility] Comment: Interpretive Data Reference Interval Normal ?>/= [...] Inclusion of Race in Diagnosing Kidney Disease, SILVIAN 2020). The CKD-EPI equation should not be used for patients with unstable renal function and has not been validated in children and those over 70. Current interpretive data was last reviewed 2021. Blood 06/26/2022 8:22 AM ECHOCARDIOGRAPHY TECH 06/26/2022 8:49 AM ECHOCARDIOGRAPHY TECH Melia Mcmahan MD LAB BLOOD ORDERABLES Final Result [facility] Department [place] [address] * (ABNORMAL) Differential, auto (06/26/2022 8:22 AM ECHOCARDIOGRAPHY TECH) Neutrophil abs 7.3(H) 1.7 - 6.5 K/cumm [facility] Imm gran abs 0.1 0.0 - 0.1 K/cumm [facility] Lymphocyte abs 2.2 0.8 - 3.3 K/cumm [facility] Monocyte abs 0.5 0.2 - 0.8 K/cumm [facility] Eosinophil abs 0.1 0.0 - 0.5 K/cumm [facility] Basophil abs 0.0 0.0 - 0.1 K/cumm [facility] Neutrophil pct 71.8 % [facility] Comment: Interpretive Data Percent cell count reference ranges are not reported, since discordance with absolute values may lead to misinterpretation of CBC data. Current Interpretive Data was last revised on 2017. Imm gran pct 0.6 % [facility] Comment: Interpretive Data Percent cell count reference ranges are not reported, since discordance with absolute values may lead to misinterpretation of CBC data. Current Interpretive Data was last revised on 2017. Lymphocyte pct 21.2 % [facility] Comment: Interpretive Data Percent cell count reference ranges are not reported, since discordance with absolute values may lead to misinterpretation of CBC data. Current Interpretive Data was last revised on 2017. Monocyte pct 5.1 % [facility] Comment: Interpretive Data Percent cell count reference ranges are not reported, since discordance with absolute values may lead to misinterpretation of CBC data. Current Interpretive Data was last revised on 2017. Eosinophil pct 0.9 % [facility] Comment: Interpretive Data Percent cell count reference ranges are not reported, since discordance with absolute values may lead to misinterpretation of CBC data. Current Interpretive Data was last revised on 2017. Basophil pct 0.4 % [facility] Comment: Interpretive Data Percent cell count reference ranges are not reported, since discordance with absolute values may lead to misinterpretation of CBC data. Current Interpretive Data was last revised on 2017. Blood 06/26/2022 8:22 AM ECHOCARDIOGRAPHY TECH 06/26/2022 8:50 AM ECHOCARDIOGRAPHY TECH Melia Mcmahan MD LAB BLOOD ORDERABLES Final Result Performing Organization Address [facility]/ZIP Co de Phone Number [facility] Department [place] [address] * Lipase (06/26/2022 8:22 AM ECHOCARDIOGRAPHY TECH) [facility] Lipase 23 10 - 99 Units/L [facility] Blood (Blood, Venous) 06/26/2022 8:22 AM ECHOCARDIOGRAPHY TECH 06/26/2022 8:49 AM ECHOCARDIOGRAPHY TECH Laci Vo MD LAB BLOOD ORDERABLES Final Re sult Performing Organization Address [facility]/ZIP Co de Phone Number [facility] Department [place] [address] * (ABNORMAL) Comprehensive metabolic panel (06/26/2022 8:22 AM ECHOCARDIOGRAPHY TECH) [facility] Sodium 139 135 - 145 mmol/L [facility] Potassium, pl 4.0 3.3 - 4.9 mmol/L [facility] Chloride 105 97 - 110 mmol/L [facility] CO2 25 22 - 32 mmol/L [facility] Anion gap 9 2 - 15 mmol/L [facility] BUN 7(L) 8 - 25 mg/dL [facility] Creatinine 0.67 0.60 - 1.10 mg/dL [facility] Glucose 86 70 - 199 mg/dL [facility] Comment: Interpretive Data Fasting glucose >/= 126 [...] 2017. Calcium 9.5 8.5 - 10.3 mg/dL [facility] Bilirubin, total 0.3 0.1 - 1.2 mg/dL [facility] Protein, pl 7.7 6.5 - 8.5 g/dL [facility] Albumin 4.5 3.5 - 5.0 g/dL [facility] Alk phos 91 40 - 130 Units/L [facility] ALT 40 7 - 45 Units/L [facility] AST 35 10 - 45 Units/L [facility] Blood 06/26/2022 8:22 AM ECHOCARDIOGRAPHY TECH 06/26/2022 8:49 AM ECHOCARDIOGRAPHY TECH us Laci Vo MD LAB BLOOD ORDERABLES Final Re sult [facility] Department [place] [address] * (ABNORMAL) CBC with auto differential (06/26/2022 8:22 AM ECHOCARDIOGRAPHY TECH) WBC 10.2(H) 3.8 - 9.9 K/cumm [facility] Hgb 15.3 11.9 - 15.5 g/dL [facility] Hct 45.4 35.6 - 45.5 % [facility] Plt 263 150 - 400 K/cumm [facility] MPV 10.3 9.1 - 12.3 fL [facility] RBC 5.19 3.90 - 5.20 M/cumm [facility] MCV 87.5 81.3 - 96.4 fL [facility] MCH 29.5 27.1 - 33.3 pg [facility] MCHC 33.7 32.3 - 35.7 g/dL [facility] RDW CV 12.3 11.1 - 14.9 % [facility] RDW SD 39.2 35.7 - 48.1 fL [facility] NRBC abs 0.00 0.00 - 0.01 K/cumm [facility] Blood (Blood, Venous) 06/26/2022 8:22 AM ECHOCARDIOGRAPHY TECH 06/26/2022 8:50 AM ECHOCARDIOGRAPHY TECH us Laci Vo MD LAB BLOOD ORDERABLES Final Re sult [facility] Department [place] [address] documented in this encounter Visit Diagnoses Diagnosis Pain- Primary Generalized pain Abdominal pain, left lower quadrant Sciatic pain, left documented in this encounter Administered Medications Inactive Administered Medications - up to 3 most recent administrations Medication Order MAR Action Action Date Dose Rate Site acetaminophen (TYLENOL) tablet 1,000 mg 1,000 mg, oral, Once, On Sat06/26/22 at 0920, For 1 dose Given 06/26/2022 9:28 AM ECHOCARDIOGRAPHY TECH 1,000 mg ibuprofen (ADVIL,MOTRIN) tablet 400 mg 400 mg, oral, Once, On Sat06/26/22 at 0920, For 1 dose, Do not crush, break, or open. Given 06/26/2022 9:28 AM ECHOCARDIOGRAPHY TECH 400 mg oxyCODONE (ROXICODONE) tablet 5 mg 5 mg, oral, Once, On Sat06/26/22 at 1020, For 1 dose, Indications: PainIndications:Pain Given 06/26/2022 10:21 AM ECHOCARDIOGRAPHY TECH 5 mg documented in this encounter Active and Recently Administered Medications Times are shown in ECHOCARDIOGRAPHY TECH. Scheduled Medication Order 06/24/2022 06/25/2022 06/26/2022 acetaminophen (TYLENOL) tablet 1,000 mg (COMPLETED) 1,000 mg, oral, Once, On Sat06/26/22 at 0920, For 1 dose 0928 (Given - Provid er: Ayla Alcantara RN) ibuprofen (ADVIL,MOTRIN) tablet 400 mg (COMPLETED) 400 mg, oral, Once, On Sat06/26/22 at 0920, For 1 dose, Do not crush, break, or open. 0928 (Given - Provid er: Ayla Alcantara RN) oxyCODONE (ROXICODONE) tablet 5 mg (COMPLETED) 5 mg, oral, Once, On Sat06/26/22 at 1020, For 1 dose, Indications: Pain 1021 (Given - Provid er: Ayla Alcantara RN) documented in this encounter Orders Nursing Count Last Ordered Date First Orde red Date MISCELLANEOUS NURSING CARE ORDER (SPECIFY) 06/26/2022 IV Count Last Ordered Date First Orde red Date SALINE LOCK IV 1 06/26/2022 documented in this encounter Care Teams Rheostat Assembler Relationship Specialty Start Date End Date Miscellaneous, Not In File PCP - General 05/19/2208/14/ 3 documented as of this encounter
--- OUTSIDE RECORDS SUMMARY | 2024-08-17 01:54 | XMS_ITS | Encounter Summary ---
Author Organization 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 Name Role Phone Lucas Carter DO Primary Care Provider [phone] Reason for Visit * Reason Comments Hypertension Abdominal Pain Encounter Details Date Type Department Care Team (Late st Contact Info) Description 08/23/2023 6:00 PM STUDENT FINANCE SPECIALIST - 08/24/2023 12:05 AM STUDENT FINANCE SPECIALIST Emergency [facility] Emergency Department [address] [place] [address] Rebecca Hudson MD [address] [facility] [address] [place], [place] [id number] Cyst of left ovary (Primary Dx); LLQ abdominal pain; Elevated blood pressure reading Discharge Disposition: Discharge to home or self [...] on file Legal Sex Female 9:06 PM STUDENT FINANCE SPECIALIST Gender Identity Female 10/01/2023 8:44 AM STUDENT FINANCE SPECIALIST Sexual Orientation Straight 10/01/2023 8: 44 AM STUDENT FINANCE SPECIALIST documented as of this encounter Last Filed Vital Signs Vital Sign Reading Time Taken Comments Blood Pressure 178/125 08/24/2023 12:00 AM STUDENT FINANCE SPECIALIST Pulse 70 08/24/2023 12:00 AM STUDENT FINANCE SPECIALIST Temperature 36.7 ??C (98 ??F) 08/23/2023 1:03 PM STUDENT FINANCE SPECIALIST Respiratory Rate 20 08/23/2023 1:03 PM STUDENT FINANCE SPECIALIST Oxygen Saturation 96% 08/24/2023 12:00 AM STUDENT FINANCE SPECIALIST Inhaled Oxygen Concentration - - Weight 81.6 kg (180 lb) 08/23/2023 1:03 PM STUDENT FINANCE SPECIALIST Height 160 cm (5' 3 ) 08/23/2023 1:03 PM STUDENT FINANCE SPECIALIST Body Mass Index 31.89 08/23/2023 1:03 PM STUDENT FINANCE SPECIALIST documented in this encounter Discharge Instructions * Discharge Instructions* Rebecca Hudson MD - 08/23/2023 11:48 PM STUDENT FINANCE SPECIALIST While you are in the emergency department, your blood pressure was noted to be elevated. You do have a history of high blood pressure. I would like you to continue taking the medications prescribed by your doctor and follow up to have it rechecked to determine if you need to have medication adjustments. ENT FINANCE SPECIALIST ENT FINANCE SPECIALIST * Attachments The following attachments cannot be sent through Care Everywhere. * Ovarian Cyst ([place]) documented in this encounter Medications at Time of Discharge MULTIVIT-MINERALS/F ERROUS FUM (MULTI VITAMIN ORAL)Indications:he alth Take 1 tablet by mouth feltmaker and weigher 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 omeprazole (PriLOSEC) 20 mg capsuleIndications: Treatment of Non-Bleeding Gastric Disorder Take 1 capsule (20 mg total) by mouth feltmaker and weigher 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 ondansetron ODT (ZOFRAN-ODT) 4 mg disintegrating tablet Take 1 tablet (4 mg total) by mouth every 8 (eight) hours as needed for nausea or vomiting 20 tablet 08/10/2023 acetaminophen (TYLENOL) 500 mg tablet Take 1 tablet (500 mg total) by mouth every 6 (six) hours as needed for pain, headaches or fever 30 tablet 08/23/2023 06/19/202 4 amLODIPine (NORVASC) 10 mg tablet Take [...] Refills Last Filled Start Date End Date dicyclomine (BENTYL) 20 mg tablet Take 1 tablet (20 mg total) by mouth every 6 (six) hours as needed (abdominal pain) 30 tablet 08/23/2023 4 oxyCODONE (ROXICODONE) 5 mg immediate release tabletIndications: Pain Take 1 tablet (5 mg total) by mouth every 6 (six) hours as needed (severe pain) 12 tablet 08/23/2023 4 acetaminophen (TYLENOL) 500 mg tablet Take 1 tablet (500 mg total) by mouth every 6 (six) hours as needed for pain, headaches or fever 30 tablet 08/23/2023 4 ibuprofen (ADVIL,MOTRIN) 400 mg tablet Take 1 tablet (400 mg total) by mouth every 6 (six) hours as needed for pain 30 tablet 08/23/2023 4 documented in this encounter Discharge Disposition Disposition Code Departure Means Destination Comment s Discharge to home or self care documented in this encounter Consult Notes * Julee Alvarado MD - 08/23/2023 11:57 PM CSTAssociated Order(s): IP CONSULT TO CAT TENDER [facility] ED3-12/ED3-12 Call back number: [phone] Pelvic bed Yes CC: left-sided pelvic pain HPI: 43 y.o. post-menopausal [place] [facility] [place] for complex ovarian cyst, [facility] for pelvic pain (01/2016) presents to ED w/ left-sided pelvic pain/discomfort in the setting of known left ovarian cyst. Has been having left-sided pelvic pain/discomfort for month in the setting of known left cyst (first noted 2021). Has been [facility] get [facility], but had been told unable to get appointment until November. Awoke today with acute onset L-sided pelvic pain that felt similar to when had issue with other ovary . Describes as sudden sharp, cramping pains lasting 1-2 minutes, self resolve. Seemed to be increasing in frequency throughout the day as frequently as every 4-5 minutes. Have decreased in frequently since arriving to ED, trying to not focus on it . Improved with pain medication, though still present. Associated nausea with acute pain, no episodes of emesis. Denies any fevers/chills. No changes in BMs. On evaluation in ED, patient in NAD vital signs notable for hypertensive otherwise within normal limits. Benign abdominal exam with mild tenderness in LLQ, no rebound or guarding and pelvic exam with left adnexal fullness/tenderness. Labs notable for WBC 9. Imaging with CT A/P with L ovarian cyst (3.5 x 2.8 x 3.7) and formal TVUS L-ovarian cyst (4.6 x 2.6 x 5.5 cm) with no evidence of ovarian torsion. Of note, had prior lsc RSO due to concern for ovarian torsion in the setting of R ovarian cyst withoperative findings notable for no evidence of torsion in 12/2015. Had persistent pelvic pain following RSO with subsequent TLH in 01/2016. 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 Patient has had a hysterectomy. Menses: S/p hyst Pap History: S/p hyst Contraception: NA HRT: pre-menopausal HOME MEDICATIONS : amLODIPine (NORVASC) 10 mg tablet cyclobenzaprine (FLEXERIL) 10 mg tablet fluconazole (DIFLUCAN) 150 mg tablet gabapentin (NEURONTIN) 300 mg capsule hydrALAZINE (APRESOLINE) 25 mg tablet HYDROcodone-acetaminophen (NORCO) 5-325 mg per tablet MULTIVIT-MINERALS/FERROUS FUM (MULTI VITAMIN ORAL) omeprazole (PriLOSEC) 20 mg capsule ondansetron ODT (ZOFRAN-ODT) 4 mg disintegrating tablet tamsulosin (FLOMAX) 0.4 mg extended release capsule Allergies as of 08/23/2023 - Reviewed 08/23/2023 Allergen Reaction Noted Ketorolac Hives and Itching 10/17/2017 Tramadol Hives and Urticaria 08/27/2016 Social History Tobacco Use Smoking status: Every Day Packs/day: .5 Types: Cigarettes Smokeless tobacco: Never Substance and Sexual Activity Drug use: No Sexual activity: Yes Partners: Male control/protection: Hysterectomy Alcohol Use: Not on file Safe at home Yes Physical Exam: Temp: [36.7 ??C (98 ??F)] 36.7 ??C (98 ??F) Pulse: [58-78] 58 Resp: [20] 20 BP: (160-193)/(105-119) 168/106 General: NAD, mood appropriate Pulmonary: non-labored Cardiovascular: Regular rate and rhythm Abdomen: soft, TTP in LLQ, non-distended, without rebound or guarding Extremities: Warm and well perfused GENITAL EXAM: External:normal appearing and no lesions Vagina: no lesions and no discharge Cervix: surgically absent Uterus: surgically absent Adnexa: Left adnexal fullness with tenderness on exam Pelvic muscle (obturator internus & levator ani) assessment Retropubic L: 0/10 Retropubic R: 0/10 Right OI: 6/10 Right LA: 0/10 Left LA: 0/10 Left OI: 8/10 Lab Results Component Value Date ABORH B Positive 05/21/2022 Laboratory review: Lab results in the last 24 hours: Recent Results (from the past 24 hour(s)) Urinalysis reflex to microscopic Collection Time: 08/23/23 2:28 PM Result Value Ref Range Color, ur Yellow Yellow Clarity, ur Clear Clear Specific gravity, ur 1.030 1.003 - 1.030 pH, urine 6.0 Protein, ur ql 1+ (A) Negative Glucose, ur ql Negative Negative Ketones, ur Negative Negative Bilirubin, ur Negative Negative Blood, ur Negative Negative Urobilinogen, ur <2.0 <2.0 mg/dL Nitrite, ur Negative Negative Leukocyte esterase, ur Negative Negative UA reflex comment Reflex to microscopic UA will be performed. Urinalysis, microscopic only Collection Time: 08/23/23 2:28 PM Result Value Ref Range WBC, ur 0-5 0 - 5 /HPF RBC, ur 11-20 (A) 0 - 2 /HPF Epithelial cells, squamous, ur 11-20 (A) 0 - 5 /HPF Mucous, ur Present (A) Calcium oxalate crystals, ur 1+ (A) Hyaline casts, ur 1-5 0 - 10 /LPF Basic metabolic panel Collection Time: 08/23/23 6:35 PM Result Value Ref Range Sodium 141 135 - 145 mmol/L Potassium, pl 3.6 3.3 - 4.9 mmol/L Chloride 106 97 - 110 mmol/L CO2 25 22 - 32 mmol/L Anion gap 10 2 - 15 mmol/L BUN 12 6 - 25 mg/dL Creatinine 0.64 0.60 - 1.10 mg/dL Glucose 80 70 - 199 mg/dL Calcium 8.8 8.5 - 10.3 mg/dL CBC with auto differential Collection Time: 08/23/23 6:35 PM Result Value Ref Range WBC 9.0 3.8 - 9.9 K/cumm Hgb 14.4 11.9 - 15.5 g/dL Hct 40.4 35.6 - 45.5 % Plt 269 150 - 400 K/cumm MPV 9.6 9.1 - 12.3 fL RBC 4.64 3.90 - 5.20 M/cumm MCV 87.1 81.3 - 96.4 fL MCH 31.0 27.1 - 33.3 pg MCHC 35.6 32.3 - 35.7 g/dL RDW CV 12.6 11.1 - 14.9 % RDW SD 39.8 35.7 - 48.1 fL NRBC abs 0.00 0.00 - 0.01 K/cumm Lipase Collection Time: 08/23/23 6:35 PM Result Value Ref Range Lipase 32 10 - 99 Units/L Differential, auto Collection Time: 08/23/23 6:35 PM Result Value Ref Range Neutrophil abs 4.9 1.5 - 6.5 K/cumm Imm gran abs 0.0 0.0 - 0.1 K/cumm Lymphocyte abs 3.3 0.8 - 3.3 K/cumm Monocyte abs 0.6 0.2 - 0.8 K/cumm Eosinophil abs 0.2 0.0 - 0.5 K/cumm Basophil abs 0.1 0.0 - 0.1 K/cumm Neutrophil pct 53.9 % Imm gran pct 0.2 % Lymphocyte pct 36.5 % Monocyte pct 6.7 % Eosinophil pct 2.1 % Basophil pct 0.6 % eGFR Collection Time: 08/23/23 6:35 PM Result Value Ref Range eGFR >90 >=60 mL/min/1.73 m2 Imaging review: I have reviewed the result(s) : US Transvaginal [[id number]] Collected: 08/23/231644 Order Status: Completed Updated: 08/23/231646 Narrative: EXAMINATION: TRANSVAGINAL PELVIC SONOGRAM HISTORY: Evaluate for ovarian torsion. Status post hysterectomy and right oophorectomy. COMPARISON: Ultrasound performed on 11/07/2022 FINDINGS: Uterus: The uterus is surgically absent. Right ovary: The right ovary is surgically absent Left ovary: The left ovary demonstrates normal echotexture with internal flow demonstrated. It measures 4.6 x 2.6 x 5.5 cm and contains physiologic follicles in addition to a 3.5 cm cyst. No need for further follow-up per ACR guidelines in a functional ovary. Other: No abnormal masses or fluid collections are visualized in either adnexal region. Impression: No evidence of left ovarian torsion. Electronically signed by: Piedad Galo M.D. CT Abdomen Pelvis W Contrast [[id number]] Collected: 08/23/231934 Order Status: Completed Updated: 08/23/231946 Narrative: EXAMINATION: CT ABDOMEN PELVIS W CONTRAST HISTORY: Lower quadrant pain COMPARISON: 08/10/2023 CT, same day sonogram FINDINGS: No acute process in the partially imaged lung bases. Partially imaged heart size normal. There is no pericardial effusion. Diffuse hepatic steatosis. Hepatomegaly. Portal veins patent. No intra or extrahepatic biliary ductal dilatation. [place] effect of the common bile duct is noted. Spleen bilateral adrenal glands and pancreas normal. Cholecystectomy. Kidneys are symmetric in size and enhance normally. Small nonobstructive left renal calculus. There is no hydroureteronephrosis. Bladder normal. Multiple bilateral pelvic phleboliths. Uterus is present. There is a 3.5 x 2.8 x 3.7 cm left ovarian cyst, slightly increased in size from August 2022 were measured 2.6 x 2.8 x 3.3 cm. No definite solid enhancing mural components. Uterus is absent with normal appearing vaginal cuff. Right ovary is not seen. Multiple scattered colonic diverticula without evidence of diverticulitis. Fluid is noted within the descending colon. Appendix is normal. There is no bowel obstruction. Multiple fluid-filled loops of small bowel are noted. No intra-abdominal free air or fluid. There are no aggressive osseous lesions. Impression: 1. Left ovarian cyst measuring 3.5 x 2.8 x 3.7 , which is better characterized on same day sonography. Otherwise, no acute intra-abdominal or pelvic abnormality. Dictated by: Pedro Pablo Lerma M.D. The radiology attending physician has personally reviewed this study, and had reviewed and/or edited this written report and agrees with it. PLAN: 43 y.o. post-menopausal s/p lsc RSO (12/2015) for complex ovarian cyst, TLH for pelvic pain (01/2016) presents to ED w/ left-sided pelvic pain/discomfort in the setting of known left ovarian cyst. #L-sided pelvic pain -S/p RSO/TLH -Known left ovarian cyst, appears similar in size to prior imaging -No evidence of torsion on TVUS -Benign abdominal exam -Pelvic exam with L adnexal fullness, tenderness to palpation, e/o PFMD with moderate to severe discomfort of bilateral OI -Suspect pain may be multifactorial, secondary to adhesive disease vs cyst vs PFMD -No concern for ovarian torsion at this time given benign exam and TVUS w/ no evidence of ovarian torsion Plan -Discussed with patient unlikely to have torsion in the setting of hysterectomy and physical exam reassuring with no evidence of torsion or acute abdomen -Recommend outpatient follow-up with OBGYN. Will message [facility] schedulers to see if could be seen sooner given ED visit -Symptom management with NSAIDs/APAP. Consider trial of flexeril vs robaxin. -Return precautions provided Phone number for follow up: [phone] Julee Alvarado MD Cosigned by Alejandra Knowles MD at 08/24/2023 12:27 PM STUDENT FINANCE SPECIALIST ENT FINANCE SPECIALIST ENT FINANCE SPECIALIST Associated attestation - Alejandra Knowles MD - 08/24/2023 12:27 PM STUDENT FINANCE SPECIALIST The resident/fellow saw and examined the patient, we discussed their findings, and I am in agreement with the plan based on the discussion with the resident/fellow. I did not personally examine the patient. documented in this encounter ED Notes * Rebecca Hudson MD - 08/23/2023 6:45 PM CST HPI Chief Complaint Patient presents with Hypertension Abdominal Pain HPI 43 yo F with hx of HTN, nephrolithiasis, known ovarian cyst, prior R sided torsion s/p hysterectomyand salpingo-oophorectomy presents emergency department with severe left-sided abdominal pain. Awoke from sleep at 6:00 a.m. with pain is described as sharp. Has been constant through the day at a 5/10 with periods of worsening pain rated at 9-10/10. Feels that her blood pressures have been higher today. Did take her a.m. medications. Denies any vomiting but has nausea. Has been having normal bowel movements. Reports some dark vaginal discharge that appears like the end of a menstrual period. Denies vaginal pain or trauma. Denies any Prior abdominal surgeries are notable for hysterectomy as well as laparoscopic cholecystectomy. Was seen the end of July at an outside hospital and notify that her left- sided ovarian cyst wasenlarging. She has not been able to get into see her weapons officer naval activity this is the 1st time she has had this typeof pain. Patient has had a colonoscopy that by report was unremarkable. Sexually active with 1 male partner Patient History: Patient Active Problem List Diagnosis [...] Systems Constitutional: Negative for chills and fever. Respiratory: Negative for chest tightness and shortness of breath. Cardiovascular: Negative for chest pain. Gastrointestinal: Positive for abdominal pain and nausea. Negative for blood in stool, constipationand vomiting. Genitourinary: Positive for vaginal discharge. Negative for dysuria. Skin: Negative for rash. Allergic/Immunologic: Negative for immunocompromised state. All other systems reviewed and are negative. Physical Exam ED Triage Vitals Temp Pulse Resp BP SpO2 08/23/23 1303 08/23/23 1303 08/23/23 1303 08/23/23 1304 08/23/23 1303 36.7 ??C (98 ??F) 74 20 (!) 175/109 97 % Temp src Heart Rate Source Patient Position BP Location FiO2 (%) 08/23/23 1303 -- -- -- -- Oral Height Height Method Weight Weight Method 08/23/23 1303 08/23/23 1303 08/23/23 1303 08/23/23 1303 1.6 m (5' 3 ) Stated 81.6 kg (180 lb) Stated Physical Exam Vitals and nursing note reviewed. Constitutional: General: She is not in acute distress. Appearance: She is not diaphoretic. HENT: Head: Normocephalic and atraumatic. Mouth/Throat: Mouth: Mucous membranes are moist. Cardiovascular: Rate and Rhythm: Normal rate. Pulmonary: Effort: Pulmonary effort is normal. Abdominal: General: Bowel sounds are normal. Palpations: Abdomen is soft. Tenderness: There is abdominal tenderness in the left lower quadrant. There is no guarding or rebound. Hernia: No hernia is present. Musculoskeletal: General: No deformity. Cervical back: Neck supple. Neurological: Mental Status: She is alert. MDM 43-year-old female presents emergency department for evaluation of sudden onset severe left lower abdominal pain. Has history of both nephrolithiasis as well as known ovarian cyst. She is status posthysterectomy and right oophorectomy. She was noted to be significantly hypertensive and does have history of hypertension likely exacerbated by pain at this time. Prior to my evaluation patient was re ceived urine studies that show epithelial cells and red blood cells, not consistent with infection as well as a transvaginal ultrasound that demonstrates a large left-sided ovarian cyst but no torsion. Given her history of nephrolithiasis in the lateral aspect of her pain, this could represent kidney stone. Will obtain CT to elucidate possible alternative etiology however intermittent torsion remains on the differential. Given patient's post hysterectomy state, preservation of fertility is not a significant concern and she does report that she has been undergoing menopausal symptoms for last 4 years. Will plan for weapons officer naval activity consult if CT does not give alternative etiology for her significant pain. At this time morphine and Zofran ordered for her pain. Remainder of labs are pending. Medical Decision Making Amount and/or Complexity of Data Reviewed Labs: ordered. Radiology: ordered. Risk OTC drugs. Prescription drug management. ED Course as of 08/25/232031 Time: 08/23 1824 Comment: Radiology imaging and accompanying radiologist read reviewed with interpretation noted as:EXAMINATION: TRANSVAGINAL PELVIC SONOGRAM HISTORY: Evaluate for ovarian torsion. Status post hysterectomy and right oophorectomy. COMPARISON: Ultrasound performed on 11/07/2022 FINDINGS: Uterus: The uterus is surgically absent. Right ovary: The right ovary is surgically absent Left ovary: The left ovary demonstrates normal echotexture with internal flow demonstrated. It measures 4.6 x 2.6 x 5.5 cm and contains physiologic follicles in addition to a 3.5 cm cyst. No need for further follow-up per ACR guidelines in a functional ovary. Other: No abnormal masses or fluid collections are visualized in either adnexal region. IMPRESSION: No evidence of left ovarian torsion. Electronically signed by: Piedad Galo M.D. By: Rebecca Hudson MD Time: 08/23 2006 Comment: Radiology imaging and accompanying radiologist read reviewed with interpretation noted as:IMPRESSION: 1. Left ovarian cyst measuring 3.5 x 2.8 x 3.7 , which is better characterized on same day sonography. Otherwise, no acute intra-abdominal or pelvic abnormality. Dictated by: Pedro Pablo Lerma M.D. The radiology attending physician has personally reviewed this study, and had reviewed and/or edited this written report and agrees with it. Electronically signed by: Beka Martell M.D. By: Rebecca Hudson MD Time: 08/23 2008 Comment: Discussed CT findings with the patient. Continues to have waves of severe pain. Will re-dose morphine. Consult Gynecology By: Rebecca Hudson MD Time: 08/23 2020 Comment: Discussed with weapons officer naval activity who will see patient in the emergency depart By: Rebecca Hudson MD Time: 08/23 2346 Comment: Discussed with weapons officer naval activity. Unlikely torsion given hysterectomy. Ok for dc with pain control and will assist with arranging earlier follow up for symptomatic cyst. By: Rebecca Hudson MD Final diagnoses: LLQ abdominal pain Cyst of left ovary Elevated blood pressure reading Rebecca Hudson MD 08/25/232031 ENT FINANCE SPECIALIST * Silvano Andrew RN - 08/23/2023 6:00 PM CST Bed: ED3-12 Expected date: Expected time: Means of arrival: Comments: Renee Luke Maxton Garner, RN 08/23/23 1800 ENT FINANCE SPECIALIST * Braden Ramirez RN - 08/23/2023 1:01 PM CST Pt coming in with complaints of abd pain. Pt has hx of ovarian cyst. Pt has been having increased pain so has been trying to get a outpatient appointment but was unable to get one. Pt then woke up with increased pain, describes it as sharp and was worried about cyst rupturing. Dark brown vaginal discharge. Nausea, denies vomiting. ENT FINANCE SPECIALIST documented in this encounter Miscellaneous Notes * ED Procedure Note - Rebecca Hudson MD - 08/24/2023 12:05 AM STUDENT FINANCE SPECIALIST Associated Order(s): Critical Care Procedure Critical Care Performed by: Rebecca Hudson MD Authorized by: Rebecca Hudson MD Critical care provider statement: As reflected in the history, physical exam, orders, notes, and/or MDM, I was personally present while the patient was critically ill and provided critical care services for 33 minutes, excluding timeinvolved in separately billable procedures. Critical care was necessary to treat or prevent imminent or life- threatening deterioration of the following condition(s): Evaluation for acute ovarian torsion Severe pain Critical care was time spent by me providing the following: serial bedside patient exams acute pain control I provided emergent necessary critical care medicine services to this patient. I spent time discussing the management of this critically ill patient with consultants and the medical staff. I ordered and reviewed test results and/or imaging studies. I spent time discussing the management and therapeutic options for this critically ill patient with the patient themselves or with the appropriate designated surrogate decision-maker. I spent time documenting in the medical record. Rebecca Hudson MD 08/25/232032 ENT FINANCE SPECIALIST * ED Pre-Arrival Note - Cherelle Ureña RN - 08/23/2023 12:31 PM STUDENT FINANCE SPECIALIST Pre-Arrival Note Pt arrives with concerns of a ovary cyst rupture. Pt also having HTN issues with complaints of a massive headache. Pt took home meds this morning. Cherelle Ureña, RN ENT FINANCE SPECIALIST documented in this encounter Plan of Treatment Not on file documented as of this encounter Procedures Procedure Name Priority Date/Time Associated Diagnosis Comments [place] CRITICAL CARE ILL/INJURED PATIENT INIT 30-74 MIN Routine 08/24/2023 12:[address] ABDOMEN PELVIS W CONTRAST ED 08/23/2023 7:17 PM STUDENT FINANCE SPECIALIST EGFR STAT 08/23/2023 6:35 PM STUDENT FINANCE SPECIALIST DIFFERENTIAL AUTO STAT 08/23/2023 6:3 5 PM STUDENT FINANCE SPECIALIST CBC WITH AUTO DIFFERENTIAL STAT 08/23/2023 6:35 PM STUDENT FINANCE SPECIALIST LIPASE STAT 08/23/2023 6:35 PM STUDENT FINANCE SPECIALIST BASIC METABOLIC PANEL STAT 08/23/2023 6:35 PM STUDENT FINANCE SPECIALIST US TRANSVAGINAL ED 08/23/2023 4:38 PM STUDENT FINANCE SPECIALIST URINALYSIS AND REFLEX TO MICROSCOPIC STAT 08/23/2023 2:28 PM STUDENT FINANCE SPECIALIST URINALYSIS, MICROSCOPIC ONLY STAT 08/23/2023 2:28 PM STUDENT FINANCE SPECIALIST documented in this encounter Results * [place] CRITICAL CARE ILL/INJURED PATIENT INIT 30-74 MIN (08/24/2023 12:05 AM STUDENT FINANCE SPECIALIST) Narrative Rebecca Hudson MD - 08/24/2023 12:05 AM STUDENT FINANCE SPECIALIST Rebecca Hudson MD ? 08/25/2023 ??8:33 PM Critical Care Performed by: Rebecca Hudson MD Authorized by: Rebecca Hudson MD ?? Critical care provider statement: As reflected in the history, physical exam, orders, notes, and/or MDM, I was personally present while the patient was critically ill and provided critical care services for 33 minutes, excluding time involved in separately billable procedures. ??Critical care was necessary to treat or prevent imminent or life-threatening deterioration of the following condition(s): ?? Evaluation for acute ovarian torsion Severe pain ??Critical care was time spent by me providing the following: ? serial bedside patient exams ?? acute pain control ?? I provided emergent necessary critical care medicine services to this patient. I spent time discussing the management of this critically ill patient with consultants and the medical staff. I ordered and reviewed test results and/or imaging studies. I spent time discussing the management and therapeutic options for this critically ill patient with the patient themselves or with the appropriate designated surrogate decision-maker. I spent time documenting in the medical record. us Rebecca Hudson MD IN CLINIC/BEDSIDE ORD ERABLES Final Result * CT Abdomen Pelvis W Contrast (08/23/2023 7:17 PM STUDENT FINANCE SPECIALIST) Anatomical Region Laterality Modality Body N/A Computed Tomogra phy 08/23/2023 7:35 PM STUDENT FINANCE SPECIALIST Impressions 08/23/2023 7:45 PM STUDENT FINANCE SPECIALIST 1. ??Left ovarian cyst measuring 3.5 x 2.8 x 3.7 , which is better characterized on same day sonography. ??Otherwise, no acute intra-abdominal or pelvic abnormality. Dictated by: Pedro Pablo Lerma M.D. The radiology attending physician has personally reviewed this study, and had reviewed and/or edited this written report and agrees with it. Electronically signed by: Beka Martell M.D. Narrative 08/23/2023 7:45 PM STUDENT FINANCE SPECIALIST EXAMINATION: CT ABDOMEN PELVIS W CONTRAST HISTORY: Lower quadrant pain COMPARISON: 08/10/2023 CT, same day sonogram FINDINGS: No acute process in the partially imaged lung bases. Partially imaged heart size normal. ??There is no pericardial effusion. Diffuse hepatic steatosis. ??Hepatomegaly. ??Portal veins patent. ??No intra or extrahepatic biliary ductal dilatation. ??[place] effect of the common bile duct is noted. ??Spleen bilateral adrenal glands and pancreas normal. ??Cholecystectomy. Kidneys are symmetric in size and enhance normally. ??Small nonobstructive left renal calculus. ??There is no hydroureteronephrosis. ??Bladder normal. ??Multiple bilateral pelvic phleboliths. ??Uterus is present. ??There is a 3.5 x 2.8 x 3.7 cm left ovarian cyst, slightly increased in size from August 2022 were measured 2.6 x 2.8 x 3.3 cm. ??No definite solid enhancing mural components. ??Uterus is absent with normal appearing vaginal cuff. Right ovary is not seen. Multiple scattered colonic diverticula without evidence of diverticulitis. ??Fluid is noted within the descending colon. Appendix is normal. ??There is no bowel obstruction. ??Multiple fluid-filled loops of small bowel are noted. ??No intra-abdominal free air or fluid. There are no aggressive osseous lesions. Procedure Note Beka Martell MD - 08/23/2023 EXAMINATION: CT ABDOMEN PELVIS W CONTRAST HISTORY: Lower quadrant pain COMPARISON: 08/10/2023 CT, same day sonogram FINDINGS: No acute process in the partially imaged lung bases. Partially imaged heart size normal. There is no pericardial effusion. Diffuse hepatic steatosis. Hepatomegaly. Portal veins patent. No intra or extrahepatic biliary ductal dilatation. [place] effect of the common bile duct is noted. Spleen bilateral adrenal glands and pancreas normal. Cholecystectomy. Kidneys are symmetric in size and enhance normally. Small nonobstructive left renal calculus. There is no hydroureteronephrosis. Bladder normal. Multiple bilateral pelvic phleboliths. Uterus is present. There is a 3.5 x 2.8 x 3.7 cm left ovarian cyst, slightly increased in size from August 2022 were measured 2.6 x 2.8 x 3.3 cm. No definite solid enhancing mural components. Uterus is absent with normal appearing vaginal cuff. Right ovary is not seen. Multiple scattered colonic diverticula without evidence of diverticulitis. Fluid is noted within the descending colon. Appendix is normal. There is no bowel obstruction. Multiple fluid-filled loops of small bowel are noted. No intra-abdominal free air or fluid. There are no aggressive osseous lesions. IMPRESSION: 1. Left ovarian cyst measuring 3.5 x 2.8 x 3.7 , which is better characterized on same day sonography. Otherwise, no acute intra-abdominal or pelvic abnormality. Dictated by: Pedro Pablo Lerma M.D. The radiology attending physician has personally reviewed this study, and had reviewed and/or edited this written report and agrees with it. Electronically signed by: Beka Martell M.D. us Rebecca Hudson MD IMG CT PROCEDURES Fin al Result * eGFR (08/23/2023 6:35 PM STUDENT FINANCE SPECIALIST) Pathologist [facility] eGFR >90 >=60 mL/min/1. 73 m2 [facility] Comment: Interpretive Data Reference Interval Normal ?>/= [...] interpretive data was last reviewed 2021. Blood 08/23/2023 6:35 PM STUDENT FINANCE SPECIALIST 08/23/2023 6:45 PM STUDENT FINANCE SPECIALIST us Israel Brizuela MD LAB BLOOD ORDERABLES Sandra l Result [facility] [place] [address] * Differential, auto (08/23/2023 6:35 PM STUDENT FINANCE SPECIALIST) Neutrophil abs 4.9 1.5 - 6.5 K/cumm [facility] Imm gran abs 0.0 0.0 - 0.1 K/cumm [facility] Lymphocyte abs 3.3 0.8 - 3.3 K/cumm [facility] Monocyte abs 0.6 0.2 - 0.8 K/cumm [facility] Eosinophil abs 0.2 0.0 - 0.5 K/cumm [facility] Basophil abs 0.1 0.0 - 0.1 K/cumm [facility] Neutrophil pct 53.9 % [facility] Comment: Interpretive Data Percent cell count reference ranges are not reported, since discordance with absolute values may lead to misinterpretation of CBC data. Current Interpretive Data was last revised on 2017. Imm gran pct 0.2 % [facility] Comment: Interpretive Data Percent cell count reference ranges are not reported, since discordance with absolute values may lead to misinterpretation of CBC data. Current Interpretive Data was last revised on 2017. Lymphocyte pct 36.5 % [facility] Comment: Interpretive Data Percent cell count reference ranges are not reported, since discordance with absolute values may lead to misinterpretation of CBC data. Current Interpretive Data was last revised on 2017. Monocyte pct 6.7 % [facility] Comment: Interpretive Data Percent cell count reference ranges are not reported, since discordance with absolute values may lead to misinterpretation of CBC data. Current Interpretive Data was last revised on 2017. Eosinophil pct 2.1 % [facility] Comment: Interpretive Data Percent cell count reference ranges are not reported, since discordance with absolute values may lead to misinterpretation of CBC data. Current Interpretive Data was last revised on 2017. Basophil pct 0.6 % [facility] Comment: Interpretive Data Percent cell count reference ranges are not reported, since discordance with absolute values may lead to misinterpretation of CBC data. Current Interpretive Data was last revised on 2017. Blood 08/23/2023 6:35 PM STUDENT FINANCE SPECIALIST 08/23/2023 6:45 PM STUDENT FINANCE SPECIALIST us Israel Brizuela MD LAB BLOOD ORDERABLES Sandra l Result [facility] [place] [address] * Lipase (08/23/2023 6:35 PM STUDENT FINANCE SPECIALIST) Pathologist [facility] Lipase 32 10 - 99 Units/L [facility] Blood (Blood, Venous) 08/23/2023 6:35 PM STUDENT FINANCE SPECIALIST 08/23/2023 6:45 PM STUDENT FINANCE SPECIALIST us Rebecca Hudson MD LAB BLOOD ORDERABLES Final Result Performing Organization Address [facility] de Phone Number [facility] Department [place] [address] * CBC with auto differential (08/23/2023 6:35 PM STUDENT FINANCE SPECIALIST) [facility] WBC 9.0 3.8 - 9.9 K/cumm [facility] Hgb 14.4 11.9 - 15.5 g/dL [facility] Hct 40.4 35.6 - 45.5 % [facility] Plt 269 150 - 400 K/cumm [facility] MPV 9.6 9.1 - 12.3 fL [facility] RBC 4.64 3.90 - 5.20 M/cumm [facility] MCV 87.1 81.3 - 96.4 fL [facility] MCH 31.0 27.1 - 33.3 pg [facility] MCHC 35.6 32.3 - 35.7 g/dL [facility] RDW CV 12.6 11.1 - 14.9 % [facility] RDW SD 39.8 35.7 - 48.1 fL [facility] NRBC abs 0.00 0.00 - 0.01 K/cumm [facility] Blood 08/23/2023 6:35 PM STUDENT FINANCE SPECIALIST 08/23/2023 6:45 PM STUDENT FINANCE SPECIALIST Israel Brizuela MD LAB BLOOD ORDERABLES Sandra l Result Performing Organization Address City/[facility]/ZIP Co de Phone Number [facility] Department [place] [address] * Basic metabolic panel (08/23/2023 6:35 PM STUDENT FINANCE SPECIALIST) Pathologist [facility] Sodium 141 135 - 145 mmol/L [facility] Potassium, pl 3.6 3.3 - 4.9 mmol/L [facility] Chloride 106 97 - 110 mmol/L [facility] CO2 25 22 - 32 mmol/L [facility] Anion gap 10 2 - 15 mmol/L [facility] BUN 12 6 - 25 mg/dL [facility] Creatinine 0.64 0.60 - 1.10 mg/dL [facility] Glucose 80 70 - 199 mg/dL [facility] Comment: Interpretive Data Fasting glucose >/= [...] interpretive data was last revised 2022. Calcium 8.8 8.5 - 10.3 mg/dL [facility] Blood 08/23/2023 6:35 PM STUDENT FINANCE SPECIALIST 08/23/2023 6:45 PM STUDENT FINANCE SPECIALIST Israel Brizuela MD LAB BLOOD ORDERABLES Sandra l Result Performing Organization Address [facility] Co de Phone Number [facility] Department [place] [address] * US Transvaginal (08/23/2023 4:38 PM STUDENT FINANCE SPECIALIST) Anatomical Region Laterality Modality Pelvis N/A Ultrasound 08/23/2023 4:45 PM STUDENT FINANCE SPECIALIST Impressions 08/23/2023 4:45 PM STUDENT FINANCE SPECIALIST No evidence of left ovarian torsion. Electronically signed by: Piedad Galo M.D. Narrative 08/23/2023 4:45 PM STUDENT FINANCE SPECIALIST EXAMINATION: TRANSVAGINAL PELVIC SONOGRAM HISTORY: ??Evaluate for ovarian torsion. ??Status post hysterectomy and right oophorectomy. COMPARISON: ??Ultrasound performed on 11/07/2022 FINDINGS: Uterus: The uterus is surgically absent. ?? Right ovary: The right ovary is surgically absent Left ovary: The left ovary demonstrates normal echotexture with internal flow demonstrated. ??It measures 4.6 x 2.6 x 5.5 cm and contains physiologic follicles in addition to a 3.5 cm cyst. ??No need for further follow-up per ACR guidelines in a functional ovary. Other: No abnormal masses or fluid collections are visualized in either adnexal region. Procedure Note Piedad Galo MD - 08/23/2023 EXAMINATION: TRANSVAGINAL PELVIC SONOGRAM HISTORY: Evaluate for ovarian torsion. Status post hysterectomy and right oophorectomy. COMPARISON: Ultrasound performed on 11/07/2022 FINDINGS: Uterus: The uterus is surgically absent. Right ovary: The right ovary is surgically absent Left ovary: The left ovary demonstrates normal echotexture with internal flow demonstrated. It measures 4.6 x 2.6 x 5.5 cm and contains physiologic follicles in addition to a 3.5 cm cyst. No need for further follow-up per ACR guidelines in a functional ovary. Other: No abnormal masses or fluid collections are visualized in either adnexal region. IMPRESSION: No evidence of left ovarian torsion. Electronically signed by: Piedad Galo M.D. us Camelia Ahn DO IMG US PROCEDURES Fi nal Result * (ABNORMAL) Urinalysis, microscopic only (08/23/2023 2:28 PM STUDENT FINANCE SPECIALIST) WBC, ur 0-5 0 - 5 /HPF [facility] RBC, ur 11-20(A) 0 - 2 /HPF [facility] Epithelial cells, squamous, ur 11-20(A) 0 - 5 /HPF [facility] Comment:Suggestive of contam ination. Consider recollection by clean catch. Mucous, ur Present(A ) [facility] Calcium oxalate crystals, ur 1+(A) [facility] Hyaline casts, ur 1-5 0 - 10 /LPF [facility] Urine 08/23/2023 2:28 PM STUDENT FINANCE SPECIALIST 08/23/2023 2:33 PM STUDENT FINANCE SPECIALIST Rebecca Hudson MD LAB URINE ORDERABLES Final Result [facility] [place] [address] * (ABNORMAL) Urinalysis reflex to microscopic (08/23/2023 2:28 PM STUDENT FINANCE SPECIALIST) Color, ur Yellow Yellow [facility] Clarity, ur Clear Clear [facility] Specific gravity, ur 1.030 1.003 - 1.030 [facility] pH, urine 6.0 [facility] Comment: Interpretive Data ? Urine pH is affected by diet, medications, systemic acid-base disturbances, and renal tubular function. ??pH may affect urinary stone formation. ??For example, urine pH below 6.0 may help reduce the tendency for calcium phosphate stones and pH greater than 6.0 may reduce the tendency for uric acid stone formation. Source: [facility] [employer] Current Interpretive Data was last revised on 2017 Protein, ur ql 1+(A) Negative [facility] Glucose, ur ql Negative Negative [facility] Ketones, ur Negative Negative [facility] Bilirubin, ur Negative Negative [facility] Blood, ur Negative Negative [facility] Urobilinogen, ur <2.0 <2.0 mg/dL [facility] Nitrite, ur Negative Negative [facility] Leukocyte esterase, ur Negative Negative [facility] UA reflex comment Reflex to microscopic UA will be performed. [facility] Urine 08/23/2023 2:28 PM STUDENT FINANCE SPECIALIST 08/23/2023 2:33 PM STUDENT FINANCE SPECIALIST us Rebecca Hudson MD LAB URINE ORDERABLES Final Result [facility] Department [place] [address] documented in this encounter Visit Diagnoses Diagnosis Cyst of left ovary- Primary Other and unspecified ovarian cyst LLQ abdominal pain Abdominal pain, left lower quadrant Elevated blood pressure reading Elevated blood pressure reading without diagnosis of hypertension documented in this encounter Administered Medications Inactive Administered Medications - up to 3 most recent administrations Medication Order MAR Action Action Date Dose Rate Site ioversoL (OPTIRAY 350) syringe 100 mL 100 mL, intravenous, Once in imaging, contrast, Starting on Sat08/23/23 at 1915, For 1 dose Contrast Given 08/23/2023 7:17 PM STUDENT FINANCE SPECIALIST 100 mL morphine injection 6 mg 6 mg, intravenous, Administer over 4 Minutes, Once, On Sat08/23/23 at 1847, For 1 dose Given 08/23/2023 7:09 PM STUDENT FINANCE SPECIALIST 6 mg morphine injection 6 mg 6 mg, intravenous, Administer over 4 Minutes, Once, On Sat08/23/23 at 2009, For 1 dose Given 08/23/2023 8:32 PM STUDENT FINANCE SPECIALIST 6 mg ondansetron (ZOFRAN) injection 4 mg 4 mg, intravenous, Administer over 2 Minutes, Once, On Sat08/23/23 at 1847, For 1 dose Given 08/23/2023 7:09 PM STUDENT FINANCE SPECIALIST 4 mg oxyCODONE (ROXICODONE) tablet 5 mg 5 mg, oral, Once, On Sat08/23/23 at 2236, For 1 dose, Indications: PainIndications:Pain Given 08/23/2023 10:39 PM STUDENT FINANCE SPECIALIST 5 mg documented in this encounter Active and Recently Administered Medications Times are shown in STUDENT FINANCE SPECIALIST. Scheduled Medication Order 08/22/2023 08/23/2023 08/24/2023 morphine injection 6 mg (COMPLETED) 6 mg, intravenous, Administer over 4 Minutes, Once, On Sat08/23/23 at 1847, For 1 dose 1908 (Given - Provider: Krystian Mendenhall, RN) morphine injection 6 mg (COMPLETED) 6 mg, intravenous, Administer over 4 Minutes, Once, On Sat08/23/23 at 2009, For 1 dose 2031 (Given - Provider: Krystian Mendenhall, KHADAR) ondansetron (ZOFRAN) injection 4 mg (COMPLETED) 4 mg, intravenous, Administer over 2 Minutes, Once, On Sat08/23/23 at 1847, For 1 dose 1909 (Given - Provider: Krystian Mendenhall, KHADAR) oxyCODONE (ROXICODONE) tablet 5 mg (COMPLETED) 5 mg, oral, Once, On Sat08/23/23 at 2236, For 1 dose, Indications: Pain 223 (Given - Provider: Krystian Mendenhall, KHADAR) PRN Medication Order 08/22/2023 08/23/2023 08/24/2023 ioversoL (OPTIRAY 350) syringe 100 mL (COMPLETED) 100 mL, intravenous, Once in imaging, contrast, Starting on Sat08/23/23 at 1915, For 1 dose 1916 (Contrast Given - Provider: Brice Grady RT) documented in this encounter Orders Nursing Count Last Ordered Date First Orde red Date MISCELLANEOUS NURSING CARE ORDER (SPECIFY) 1 08/23/2023 Consult Count Last Ordered Date First Orde red Date IP CONSULT TO CAT TENDER 1 08/23/2023 IV Count Last Ordered Date First Orde red Date SALINE LOCK IV 1 08/23/2023 documented in this encounter Care Teams Meat Sales And Storage Manager Relationship Specialty Start Date End Date Lucas Carter DO PCP - General Internal Medicine 08/15/22 documented as of this encounter
--- OUTSIDE RECORDS SUMMARY | 2024-08-17 01:54 | XMS_ITS | Encounter Summary ---
Author Organization [facility] Healthcare Address [address] [place] [address] Care Team Providers Care Major Appliance Assembly Supervisor Name Role Phone Lucas Carter DO Primary Care Provider [phone] Encounter Details Date Type Department Care Team (Late st Contact Info) Description 12/26/[address] [address] Kelly Hawkins RN Social History Tobacco Use Types Packs/Day Years Used Date Smoking Tobacco: Every Day Cigarettes Smokeless Tobacco: Never Alcohol Use Standard Drinks/Week Comments No 0 (1 standard drink = 0.6 oz pur e alcohol) Comments No Sex and Gender Information Value Date Recorded Sex Assigned at Not on file Legal Sex Female 9:06 PM ROPE LAYING MACHINE OPERATOR Gender Identity Female 10/01/2023 8:44 AM ROPE LAYING MACHINE OPERATOR Sexual Orientation Straight 10/01/2023 8: 44 AM ROPE LAYING MACHINE OPERATOR documented as of this encounter ED Notes * Kelly Hawkins RN - 12/26/2022 12:09 PM CDT This RN attempted to call the pt as a [facility] follow up with no success. VM left with call back numberprovided. Kelly Hawkins RN 12/26/22 1210 documented in this encounter Plan of Treatment Not on file documented as of this encounter Visit Diagnoses Not on filedocumented in this encounter Care Teams Major Appliance Assembly Supervisor Relationship Specialty Start Date End Date Lucas Carter DO PCP - General Internal Medicine 08/15/22 documented as of this encounter
--- OUTSIDE RECORDS SUMMARY | 2024-08-17 01:54 | XMS_ITS | Encounter Summary ---
Author Organization [facility] Healthcare Address [address] [place] [address] Care Team Providers Care Gatekeeper Name Role Phone Lucas Carter DO Primary Care Provider [phone]- [phone] Reason for Visit * Reason Comments Vaginal Discharge Entered automaticall y based on patient selection in [employer]. Encounter Details Date Type Department Care Team (Late st Contact Info) Description 08/27/2023 11:30 AM FRONT END APPLICATION DEVELOPER E-Visit [facility] Virtual Care [address] [place] [phone] Tamera Epstein NP [id number] [place] [address] E-Visit for Vaginal Discharge / Irritation Social History Tobacco Use Types Packs/Day Years [...] on file Legal Sex Female 9:06 PM FRONT END APPLICATION DEVELOPER Gender Identity Female 10/01/2023 8:44 AM FRONT END APPLICATION DEVELOPER Sexual Orientation Straight 10/01/2023 8: 44 AM FRONT END APPLICATION DEVELOPER documented as of this encounter Miscellaneous Notes * E-Visit Note - Tamera Epstein NP - 08/27/2023 11:37 AM CST Renee Luke 08/27/2023 E-Visit Submission Subjective/Objective: Renee Luke contacted the office today via e-visit for Vaginal discharge/irritation. The patient-submitted questionnaire was assessed for pertinent information and the patient's problem list, medication list, and allergies were reviewed as part of the e-visit. The chart was updated to identify any changes in these areas. Reports foul smelling vaginal discharge with vaginal pain and belly pain. Assessment: Needs to be seen in-person for vaginal exam and swabs No diagnosis found. Plan: The patient was given information regarding any new medication(s) prescribed, if applicable, as well as any [id number] remedies. She was given instructions regarding follow up and timeframe if symptoms worsen or don???t improve. These instructions were included in the [employer] message reply tothe patient. Patient Instructions were included in the message reply to patient. My total encounter time on 08/27/2023 was 3 minutes which was spent in the activities documented inthe note. Tamera Epstein NP T END APPLICATION DEVELOPER documented in this encounter Plan of Treatment Not on file documented as of this encounter Visit Diagnoses Not on filedocumented in this encounter Care Teams Gatekeeper Relationship Specialty Start Date End Date Lucas Carter DO PCP - General Internal Medicine 08/15/22 documented as of this encounter
--- OUTSIDE RECORDS SUMMARY | 2024-08-17 01:54 | XMS_ITS | Encounter Summary ---
Author Organization [facility] Address [address] [place] [address] Phone Care Team Providers Care Supervisor Of Way Name Role Phone Miscellaneous, Not In File Primary Care Provider Unavailable Reason for Visit * Reason Onset Date Comments Scheduling Appointments 06/01/2022 ER refer ral in que Encounter Details Date Type Department Care Team (Late st Contact Info) Description 06/01/2022 Telephone [facility] Department of Surgery, Section of Colon and Rectal Surgery [address], [place] [address] Felisa Jordan BS Scheduling Appointments (ER referral in que ) Social History Tobacco Use Types Packs/Day Years Used Date Smoking Tobacco: Every Day Cigarettes Smokeless Tobacco: Never Alcohol Use Standard Drinks/Week Comments No 0 (1 standard drink = 0.6 oz pur e alcohol) Comments No Sex and Gender Information Value Date Recorded Sex Assigned at Not on file Legal Sex Female 9:06 PM AUTOMATIC DATA PROCESSING PLANNER Gender Identity Female 10/01/2023 8:44 AM AUTOMATIC DATA PROCESSING PLANNER Sexual Orientation Straight 10/01/2023 8: 44 AM AUTOMATIC DATA PROCESSING PLANNER documented as of this encounter Miscellaneous Notes * Telephone Encounter - Felisa Jordan - 06/01/2022 1:47 PM CDT The phone number does not ring when called. Called 3 times today, the line clicks and never rings. Will send [employer] message to the patient. documented in this encounter Plan of Treatment Not on file documented as of this encounter Visit Diagnoses Not on filedocumented in this encounter Care Teams Supervisor Of Way Relationship Specialty Start Date End Date Miscellaneous, Not In File PCP - General 05/19/2208/14/ 3 documented as of this encounter
--- OUTSIDE RECORDS SUMMARY | 2024-08-17 01:54 | XMS_ITS | Encounter Summary ---
Author Organization [facility] Address [address] [place] [address] Care Team Providers Care Palliative Senior Np Name Role Phone Miscellaneous, Not In File Primary Care Provider Unavailable Reason for Visit * Reason Comments Abdominal Pain Encounter Details Date Type Department Care Team (Late st Contact Info) Description 05/19/2022 9:21 AM CDT - 05/19/2022 12:30 PM CDT Emergency [facility] Emergency Department [address] [place] [id number] Acute proctitis (Primary Dx); Acute left flank pain; Left lower quadrant abdominal pain Discharge Disposition: Discharge to home or self care Social History Tobacco Use Types Packs/Day Years Used Date Smoking Tobacco: Every Day Cigarettes Smokeless Tobacco: Never Alcohol Use Standard Drinks/Week Comments No 0 (1 standard drink = 0.6 oz pur e alcohol) Comments No Sex and Gender Information Value Date Recorded Sex Assigned at Not on file Legal Sex Female 9:06 PM 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 COREMAKER Gender Identity Female 10/01/2023 8:44 AM SHELL COREMAKER Sexual Orientation Straight 10/01/2023 8: 44 AM SHELL COREMAKER documented as of this encounter Last Filed Vital Signs Vital Sign Reading Time Taken Comments Blood Pressure 231/131 05/19/2022 12:16 PM CDT Pulse 62 05/19/2022 12:12 PM CDT Temperature 36.8 ??C (98.2 ??F) 05/19/2022 9:12 AM CD T Respiratory Rate 20 05/19/2022 12:12 PM CDT Oxygen Saturation 96% 05/19/2022 9:12 AM CDT Inhaled Oxygen Concentration - - Weight 79.4 kg (175 lb) 05/19/2022 9:09 AM CDT Height 160 cm (5' 3 ) 05/19/2022 9:09 AM CDT Body Mass Index 31 05/19/2022 9:09 AM CDT documented in this encounter Discharge Instructions * Discharge Instructions* Lucas Grajeda PA - 05/19/2022 11:47 AM CDT Return to the ER for: Fever Nausea and vomiting Follow up with the primary care clinic in the next 3-5 days for re-evaluation. Juli Simpson [facility] (3) [facility]- [address] [phone] (M, , Th, F 8-5; W 8-8) [place] [facility]- [address] [facility] [phone] (M-W, F 8-5; Th 8-8) [facility]- [address] [facility] [phone] (, , F 8-5; W 8-8) Min $20/visit w/o insurance [facility]. (4) Main Number [phone] [facility]- [address] [facility]- 2220 [facility]- [address] [facility]- [address] [facility] (M, , Th, F 830-530; W 830-7) (Sa 9-1 @ [facility]) Min $20/visit w/o insurance [facility] (4) [facility]- [address] [phone] (M-Sa) [facility]- [address] [facility] [phone] (M-Sa) [facility]- [address] [facility] [phone] (M 9-2; 10-6; W 9-3;Th 10-4; Sa 8-12) [facility]- [address]; *Ages 13-24* [phone] (M-F 1p-5p) [place] (Amharic-speaking) [address] (M-F 9-5, Sa 9-2, [place] 1p-5p) $25/visit w/o insurance [facility] (3) [facility]- [address] [phone] (M, W-F 8-530; 8-830) [facility]- [address] [phone] (M, , Th, F 8-530; W 8-830) [facility]- [address] [phone] (M-W, F 8-530; 11-8) Min $25/visit w/o insurance [facility] (2) [place]- [address] [phone] (M, W, F 8-5; , 8-8; Sa 8-1) [facility]- [address] [phone] (M, W-F 830-5; 830-7; Sa 9-1) Min $20/visit w/o insurance [facility] (3) [facility]- [address] [facility] [address] [phone] (M-W, F 8-5; 8-6) [facility]- [address] [phone] (M, , Th, F 8-5; W 8-6) [facility]- [address] [facility] [address] [phone] (M, W-F 8-5; 8-6) [facility] ([email or web address]) (~40 centers) [address] [place] [address] [place], [place] [phone] (M-F830-5; Quick Care M-F 5p-830p, Sa 9-1230) [facility]- [address] [phone] (M-F 830-5;Late Hours M,W,F 6p-10p) [facility]- [address] [place] [phone] (M-F 830-5) Call 211 or go to [email or web address] to get help from the [facility] [email or web address] Can't connect? Dial [phone] TTY:016.103.6552 They can help with: Basic needs food pantries shelters utility assistance Physical and mental health resources Medicaid Medicare care children's health insurance programs crisis intervention support groups counseling alcohol and drug rehabilitation Support for seniors and those with disabilities centers for independent living adult day care meals at home respite care transportation and recreation home health care Support for children, youth and families after-school programs tutoring mentorship programs family resource centers protective services counseling mixed crop and livestock farmer learning programs attendant child activity referral centers disaster and weather heating and cooling shelters tornado, flooding and other natural disaster resources and information * Attachments The following attachments cannot be sent through Care Everywhere. * Proctitis (AfterCare(R) Instructions(ER/ED)) (Salvadorean) * Acute Abdominal Pain (Plastics Fabrication Supervisor) (Salvadorean) documented in this encounter Medications at Time of Discharge MULTIVIT-MINERALS/F ERROUS FUM (MULTI VITAMIN ORAL)Indications:he alth Take 1 tablet by mouth owner/photographer 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 omeprazole (PriLOSEC) 20 mg capsuleIndications: Treatment of Non-Bleeding Gastric Disorder Take 1 capsule (20 mg total) by mouth owner/photographer 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 lisinopril-hydroCHL OROthiazide (ZESTORETIC) 20-12.5 mg per tabletIndications:h [...] Refills Last Filled Start Date End Date oxyCODONE-acetami nophen (PERCOCET) 5-325 mg per tabletIndications :Pain Take 1-2 tablets by mouth every 6 (six) hours as needed for pain 10 tablet 2 08/15/19 23 mesalamine (CANASA) 1,000 mg suppositoryIndica tions:Ulcerative Proctitis Insert 1 suppository (1,000 mg total) into the rectum nightly 30 suppository 2 08/15/19 23 documented in this encounter Discharge Disposition Disposition Code Departure Means Destination Discharge to home or self care documented in this encounter ED Notes * Lucas Grajeda PA - 05/19/2022 10:32 AM CDT Visit Date: 05/19/22 Triage Time: 920 Age: 42 y.o. Service: Emergency Medicine ER Provider: AMISH Landers Patient Name: Renee Luke : 1980 Gender: female PCP: Miscellaneous, Not In File Code Status: No Order Allergies: Allergies Allergen Reactions Ketorolac Hives and Itching Tramadol Hives and Urticaria Chief Complaint Patient presents with Abdominal Pain HISTORY OF PRESENT ILLNESS This is a 42-year-old female comes emergency room with past medical history of hypertension, migrainous headaches, kidney stones, ovarian cyst. Patient states she was woken from sleep approximately 2:00 a.m. in the morning (7 hours ago). She states that the pain in the left flank, and left lower abdomen woke her up from sleep, causing some nausea , and no vomiting. Patient states that she has hadsimilar pain with kidney stones previously, also, similar pain with ovarian cyst. Therefore, patient came to emergency room for evaluation of left flank and lower abdominal pain that began this morning at 2:00 a.m., causing nausea, no vomiting, and no diarrhea. Patient denies any fever, cough, congestion or other upper respiratory infection symptoms. 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 SUBJECTIVE Review of Systems Constitutional: Negative. HENT: Negative. Eyes: Negative. Respiratory: Negative. Cardiovascular: Negative. Gastrointestinal: Positive for abdominal pain and nausea. Negative for blood in stool, diarrhea andvomiting. Endocrine: Negative. Genitourinary: Positive for flank pain. Skin: Negative. Allergic/Immunologic: Negative. Neurological: Negative. Hematological: Negative. Psychiatric/Behavioral: Negative. All other systems reviewed and are negative. OBJECTIVE ED Triage Vitals Temp Pulse Resp BP SpO2 05/19/22 0912 05/19/2291105/19/2291105/19/2291105/19/22911 36.8 ??C (98.2 ??F) 74 18 (!) 187/140 96 % Temp src Heart Rate Source Patient Position BP Location FiO2 (%) -- -- -- -- -- Height Height Method Weight Weight Method 05/19/22908 -- 05/19/22908 -- 1.6 m (5' 3 ) 79.4 kg (175 lb) Physical Exam Vitals and nursing note reviewed. Constitutional: Appearance: She is well-developed. She is obese. HENT: Head: Normocephalic and atraumatic. Mouth/Throat: Mouth: [...] rhonchi or rales. Abdominal: General: Abdomen is protuberant. Bowel sounds are normal. Palpations: Abdomen is soft. Tenderness: There is abdominal tenderness in the left lower quadrant. There is left CVA tenderness and guarding. There is no rebound. Hernia: No hernia is present. Skin: General: Skin is warm and dry. Capillary Refill: Capillary refill takes less than 2 seconds. Neurological: General: No focal deficit present. Mental Status: She is alert and oriented to person, place, and time. Psychiatric: Mood and Affect: Mood normal. Behavior: Behavior normal. Labs Ordered Labs Reviewed CBC WITH AUTO DIFFERENTIAL - Abnormal Result Value WBC 8.2 Hgb 14.9 Hct 41.6 Plt 247 MPV 9.9 RBC 4.85 MCV 85.8 MCH 30.7 MCHC 35.8 (*) RDW CV 12.2 RDW SD 38.2 NRBC abs 0.00 POCT HCG, URINE - Normal HCG, ur, POC Negative Lot Number [id number] QC Backgroud Clear Acceptable QC Control Line Acceptable URINALYSIS AND REFLEX TO MICROSCOPIC AND CULTURE Color, ur Straw Clarity, ur Clear Specific gravity, ur 1.008 pH, urine 6.0 Protein, ur ql Negative Glucose, ur ql [...] tendency for uric acid stone formation. Source: [employer].Last revised 08-22-2017 COMPREHENSIVE METABOLIC PANEL Sodium 140 Potassium, pl 3.8 Chloride 107 CO2 23 Anion gap 10 BUN 10 Creatinine 0.69 Glucose 88 Calcium 8.8 Bilirubin, total 0.3 Protein, pl 7.0 Albumin 4.2 Alk phos 83 ALT 45 AST 36 DIFFERENTIAL AUTO Neutrophil abs 5.7 Imm gran abs 0.0 Lymphocyte abs 1.8 Monocyte abs 0.6 Eosinophil abs 0.1 Basophil abs 0.0 Neutrophil pct 69.1 Imm gran pct 0.2 Lymphocyte pct 22.1 Monocyte pct 7.1 Eosinophil pct 1.0 Basophil pct 0.5 EGFR eGFR >90 POCT LACTATE - DEVICE POCT CREATININE - DEVICE POCT CREATININE - DEVICE Creatinine POC 0.6 POCT LACTATE - DEVICE Lactate POC i-STAT 2.0 Images Ordered XR Chest Pa Lateral 2 Vw Final Result Comparison is made to 03/19/2018. There is no pneumonic consolidation, effusion, or pneumothorax. There is minimal basilar atelectasis. Electronically signed by: Drew Haile M.D. CT Abdomen Pelvis W Contrast Final Result Bone windows show no suspicious lytic or blastic lesions. IMPRESSION: 1. Findings suggestive of proctitis. 2. Diffuse hepatic steatosis. Electronically signed by: Drew Haile M.D. ASSESSMENT & CARE Sequential Vitals Patient Vitals for the past 24 hrs: BP Temp Pulse Resp SpO2 Height Weight 05/19/2212 (!) 187/140 36.8 ??C (98.2 ??F) 74 18 96 % -- -- 05/19/22 0909 -- -- -- -- -- 160 cm (5' 3 ) 79.4 kg (175 lb) ED Course Medications Given in the ED ED Medication Administration from 05/19/2022 0908 to 05/19/2022 1150 Date/Time Order Dose Route Action Action by 05/19/2022 0950 CDT sodium chloride 0.9% bolus 1,000 mL 1,000 mL intravenous New Bag Anai Raza 05/19/2022 0956 CDT morphine injection 4 mg 4 mg intravenous Given Anai Raza 05/19/2022 0952 CDT ondansetron (ZOFRAN) injection 4 mg 4 mg intravenous Given Anai Raza 05/19/2022 1026 CDT ioversoL (OPTIRAY 320) intravenous syringe 100 mL 93 mL intravenous Contrast Given [place] Medical Decision Making MDM Number of Diagnoses or Management Options Acute left flank pain Acute proctitis Left lower quadrant abdominal pain Diagnosis management comments: Differential: 1. Likely kidney stone left side 2. Less likely left ovarian cyst 3. Possible left pyelonephritis Plan: 1. IV, labs, urinalysis 2. CT scan abdomen pelvis 3. Disposition guided by radiologic and laboratory findings. DISPOSITION Disposition Decision Discharge Outpatient Medications Prescribed ED Prescriptions Medication Sig Dispense Start Date End Date Auth. Provider mesalamine (CANASA) 1,000 mg suppository Insert 1 suppository (1,000 mg total) into the rectum nightly 30 suppository 05/19/2022 05/19/2023 Lucas Grajeda PA oxyCODONE-acetaminophen (PERCOCET) 5-325 mg per tablet Take 1-2 tablets by mouth every 6 (six) hours as needed for pain 10 tablet 05/19/2022 -- Israel Brizuela MD Final Diagnosis and Plan Final diagnoses: Acute proctitis Acute left flank pain Left lower quadrant abdominal pain Discharge Instructions Discharge Instructions Return to the ER for: Fever Nausea and vomiting Follow up with the primary care clinic in the next 3-5 days for re-evaluation. Juli Simpson [facility] (3) [facility]- [address] [phone] (M, , , F 8-5; W 8-8) [facility]- [address] [facility] [phone] (-W, F 8-5; 03-19) [facility]- [address] [facility] [phone] (, , F 8-5; W 8-8) Min $20/visit w/o insurance [email or web address] [facility] (4) Main Number [phone] [facility]- [address] [facility]- 2220 [facility]- 39[address] [facility]- [address] [facility] (M, , , F 830-530; W 830-7) (Sa 9-1 @ [facility]) Min $20/visit w/o insurance [facility]roductive Health (4) [facility]- [address] [phone] (M-Sa) [facility]- [address] [facility] [phone] (M-Sa) [facility]- [address] [phone] (M 9-2; 10-6; W 9-3; 10-4; Sa 8-12) [facility]- [address]; *Ages 13-24* [phone] (M-F 1p-5p) [place] (Amharic-speaking) [address] (M-F 9-5, Sa 9-2, [place] 1p-5p) $25/visit w/o insurance [facility] (3) [facility]- [address] [phone] (M, W-F 8-530; 8-830) [facility]- [address] [phone] (M, , , F 8-530; W 8-830) [facility]- [address] [phone] (M-W, F 8-530; 11-8) Min $25/visit w/o insurance [facility] (2) [facility]- [address] [phone] (M, W, F 8-5; , 8-8; Sa 8-1) [facility]- [address] [phone] (M, W-F 830-5; 830-7; Sa 9-1) Min $20/visit w/o insurance [facility] (3) [facility]- [address] [facility] [address] [facility] [address] [phone] (M-W, F 8-5; 8-6) [facility]- [address] [phone] (M, , Th, F 8-5; W 8-6) [facility]- [address] [facility] [address] [phone] (M, W-F 8-5; Tu 8-6) [facility] Centers ([email or web address]) (~40 centers) [address] [facility]- [address] [place], [place] [phone] (M-F830-5; Quick Care M-F 5p-830p, Sa 9-1230) [facility]- [address] [phone] (M-F 830-5;Late Hours M,W,F 6p-10p) [facility]- [address] [place] [address] (M-F 830-5) Call 211 or go to www.[employer] to get help from the [facility] [email or web address]/ Can't connect? Dial [phone] TTY:278.277.7744 They can help with: Basic needs food pantries shelters utility assistance Physical and mental health resources Medicaid Medicare care children's health insurance programs crisis intervention support groups counseling alcohol and drug rehabilitation Support for seniors and those with disabilities centers for independent living adult day care meals at home respite care transportation and recreation home health care Support for children, youth and families after-school programs tutoring mentorship programs family resource centers protective services counseling mixed crop and livestock farmer learning programs attendant child activity referral centers disaster and weather heating and cooling shelters tornado, flooding and other natural disaster resources and information Patient Instructed to Follow Up With [facility] Department of Surgery, Section of Colon and Rectal Surgery [address] [facility] Advanced Medicine 12th Floor, [address] [facility] [phone] In 3 days [facility] [address] [facility] [address] [facility] [phone] In 3 days Condition on Departure Vitals: 05/19/22 0912 BP: (!) 187/140 Pulse: 74 Resp: 18 Temp: 36.8 ??C (98.2 ??F) SpO2: 96% Lucas Grajeda MS, PA-C Emergency Medicine Lucas Grajeda PA 05/19/22 1150 * Apoorva Roberson RN - 05/19/2022 9:21 AM CDT Bed: ED3-11 Expected date: Expected time: Means of arrival: Car Comments: Apoorva Roberson RN 05/19/22 0921 * Cass Smalls RN - 05/19/2022 9:09 AM CDT Pt presents to ED c/o LLQ abdominal pain that woke her from sleep this morning. Pt reports known left ovarian cyst, states it's been giving me trouble for about a year but the pain is worse today. Denies urinary problems. documented in this encounter Plan of Treatment Not on file documented as of this encounter Procedures Procedure Name Priority Date/Time Associated Diagnosis Comments XR CHEST PA LATERAL 2 VIEWS ED 05/19/2022 10:[address] ABDOMEN PELVIS W CONTRAST ED 05/19/2022 10:26 AM CDT POCT HCG, URINE Routine 05/19/2022 10:20 AM CDT POCT LACTATE - DEVICE Routine 05/19/2022 10:18 AM CDT POCT CREATININE - DEVICE Routine 05/19/2022 10:13 AM CDT EGFR STAT 05/19/2022 9:58 AM CDT DIFFERENTIAL AUTO STAT 05/19/2022 9:5 8 AM CDT URINALYSIS AND REFLEX TO MICROSCOPIC AND CULTURE STAT 05/19/2022 9:58 AM CDT CBC WITH AUTO DIFFERENTIAL STAT 05/19/2022 9:58 AM CDT COMPREHENSIVE METABOLIC PANEL STAT 05/19/2022 9:58 AM CDT documented in this encounter Results * XR Chest Pa Lateral 2 Vw (05/19/2022 10:35 AM CDT) Anatomical Region Laterality Modality Body, Chest N/A Computed Radiogr aphy 05/19/2022 10:4 1 AM CDT Impressions 05/19/2022 10:41 AM CDT Comparison is made to 03/19/2018. There is no pneumonic consolidation, effusion, or pneumothorax. There is minimal basilar atelectasis. Electronically signed by: Drew Haile M.D. Narrative 05/19/2022 10:41 AM CDT EXAMINATION: 2 view chest radiograph Procedure Note Drew Haile MD - 05/19/2022 EXAMINATION: 2 view chest radiograph IMPRESSION: Comparison is made to 03/19/2018. There is no pneumonic consolidation, effusion, or pneumothorax. There is minimal basilar atelectasis. Electronically signed by: Drew Haile M.D. [facility] IMG XR PROCEDURES Final Resu lt * CT Abdomen Pelvis W Contrast (05/19/2022 10:26 AM CDT) Anatomical Region Laterality Modality Body N/A Computed Tomogra phy 05/19/2022 10:3 5 AM CDT Impressions 05/19/2022 10:35 AM CDT Bone windows show no suspicious lytic or blastic lesions. IMPRESSION: 1. Findings suggestive of proctitis. 2. Diffuse hepatic steatosis. Electronically signed by: Drew Haile M.D. Narrative 05/19/2022 10:35 AM CDT EXAMINATION: ??Computed tomography of the abdomen/pelvis with intravenous contrast HISTORY: Evaluate for abscess TECHNIQUE: ??Transaxial computed tomographic images of the abdomen/pelvis ??were obtained with intravenous contrast according to the standard protocol after the uneventful administration of 100 mL Opti-Ray 350 intravenous contrast. COMPARISON: 04/10/2022 FINDINGS: ?? The lung bases are clear. The heart size is normal. There is diffuse hepatic steatosis. The portal and superior mesenteric veins are patent. Stones and sludge are seen within the gallbladder. There is no evidence of cholecystitis. There is no biliary ductal dilatation. The pancreas is normal appearing. Both adrenal glands and the spleen are normal. Normal appearance of the kidneys without findings of hydronephrosis or suspicious lesions. The bladder is normal appearing. The previously noted findings of duodenitis are not as well apparent on today's examination.. There is mild thickening of the rectum with adjacent soft tissue stranding. There are no additional areas of abnormal bowel wall thickening or dilatation. The appendix is normal appearing. There is no abdominal or pelvic lymphadenopathy. There are left ovarian follicles with apparent decrease in size of a previously noted cyst. No free fluid or gas. Procedure Note Drew Haile MD - 05/19/2022 EXAMINATION: Computed tomography of the abdomen/pelvis with intravenous contrast HISTORY: Evaluate for abscess TECHNIQUE: Transaxial computed tomographic images of the abdomen/pelvis were obtained with intravenous contrast according to the standard protocol after the uneventful administration of 100 mL Opti-Ray 350 intravenous contrast. COMPARISON: 04/10/2022 FINDINGS: The lung bases are clear. The heart size is normal. There is diffuse hepatic steatosis. The portal and superior mesenteric veins are patent. Stones and sludge are seen within the gallbladder. There is no evidence of cholecystitis. There is no biliary ductal dilatation. The pancreas is normal appearing. Both adrenal glands and the spleen are normal. Normal appearance of the kidneys without findings of hydronephrosis or suspicious lesions. The bladder is normal appearing. The previously noted findings of duodenitis are not as well apparent on today's examination.. There is mild thickening of the rectum with adjacent soft tissue stranding. There are no additional areas of abnormal bowel wall thickening or dilatation. The appendix is normal appearing. There is no abdominal or pelvic lymphadenopathy. There are left ovarian follicles with apparent decrease in size of a previously noted cyst. No free fluid or gas. IMPRESSION: Bone windows show no suspicious lytic or blastic lesions. IMPRESSION: 1. Findings suggestive of proctitis. 2. Diffuse hepatic steatosis. Electronically signed by: Drew Haile M.D. [facility] IMG CT PROCEDURES Final Resu lt * POCT hCG, urine (05/19/2022 10:20 AM CDT) [facility] HCG, ur, POC Negative Lot Number [id number] QC Backgroud Clear Acceptable QC Control Line Acceptable Urine 05/19/2022 10:2 0 AM CDT Lucas [facility] POINT OF CARE TEST ORDERABLE S Final Result * POCT lactate (05/19/2022 10:18 AM CDT) [facility] Lactate POC i-STAT 2.0 0.7 - 2.2 mmol/L [facility] Blood 05/19/2022 10:1 8 AM CDT 05/19/2022 10:18 AM CDT us Notinfile Unknown LAB POCT ORDERABLES - DEVICE F inal Result Performing Organization Address [facility] Co de Phone Number [facility] [place] [address] * POCT creatinine (05/19/2022 10:13 AM CDT) [facility] Creatinine POC 0.6 0.6 - 1.1 mg/dL [facility] Blood 05/19/2022 10:1 3 AM CDT 05/19/2022 10:13 AM CDT Notinfile Unknown LAB POCT ORDERABLES - DEVICE F inal Result Performing Organization Address City/[facility]/ZIP Co de Phone Number [facility] [place] [address] * eGFR (05/19/2022 9:58 AM CDT) [facility] eGFR >90 90 - 130 mL/min/1. 73 m2 [facility] Comment: Interpretive Data Reference Interval Normal [...] interpretive data was last reviewed 2021. Blood 05/19/2022 9:58 AM CDT 05/19/2022 10:37 AM CDT [facility] BLOOD ORDERABLES Final R esult Performing Organization Address City/State/[facility] Co de Phone Number [facility] Department [place] [address] * Differential, auto (05/19/2022 9:58 AM CDT) Neutrophil abs 5.7 1.7 - 6.5 K/cumm [facility] Imm gran abs 0.0 0.0 - 0.1 K/cumm [facility] Lymphocyte abs 1.8 0.8 - 3.3 K/cumm [facility] Monocyte abs 0.6 0.2 - 0.8 K/cumm [facility] Eosinophil abs 0.1 0.0 - 0.5 K/cumm [facility] Basophil abs 0.0 0.0 - 0.1 K/cumm [facility] Neutrophil pct 69.1 % [facility] Comment: Interpretive Data Percent cell count reference ranges are not reported, since discordance with absolute values may lead to misinterpretation of CBC data. Current Interpretive Data was last revised on 2017. Imm gran pct 0.2 % [facility] Comment: Interpretive Data Percent cell count reference ranges are not reported, since discordance with absolute values may lead to misinterpretation of CBC data. Current Interpretive Data was last revised on 2017. Lymphocyte pct 22.1 % [facility] Comment: Interpretive Data Percent cell count reference ranges are not reported, since discordance with absolute values may lead to misinterpretation of CBC data. Current Interpretive Data was last revised on 2017. Monocyte pct 7.1 % [facility] Comment: Interpretive Data Percent cell count reference ranges are not reported, since discordance with absolute values may lead to misinterpretation of CBC data. Current Interpretive Data was last revised on 2017. Eosinophil pct 1.0 % [facility] Comment: Interpretive Data Percent cell count reference ranges are not reported, since discordance with absolute values may lead to misinterpretation of CBC data. Current Interpretive Data was last revised on 2017. Basophil pct 0.5 % [facility] Comment: Interpretive Data Percent cell count reference ranges are not reported, since discordance with absolute values may lead to misinterpretation of CBC data. Current Interpretive Data was last revised on 2017. Blood 05/19/2022 9:58 AM CDT 05/19/2022 10:37 AM CDT us [facility] BLOOD ORDERABLES Final R esult [facility] Department [place] [address] * Urinalysis reflex to microscopic and culture Urine (05/19/2022 9:58 AM CDT) Color, ur Straw Yellow [facility] Clarity, ur Clear Clear [facility] Specific gravity, ur 1.008 1.003 - 1.030 [facility] pH, urine 6.0 [facility] Protein, ur ql Negative Negative [facility] Glucose, ur ql Negative Negative [facility] Ketones, ur Negative Negative [facility] Bilirubin, ur Negative Negative [facility] Blood, ur Negative Negative [facility] Urobilinogen, ur <2.0 <2.0 mg/dL [facility] Nitrite, ur Negative Negative [facility] Leukocyte esterase, ur Negative Negative [facility] UA reflex comment Reflex conditions for microscopic UA and culture not met. [facility] Urine 05/19/2022 9:58 AM CDT 05/19/2022 10:17 AM CDT Narrative [facility] - 05/19/2022 10:27 AM CDT ?? Urine pH is affected by diet, medications, systemic acid-base disturbances, and renal tubular function. ??pH may affect urinary stone formation. ??For example, urine pH below 6.0 may help reduce the tendency for calcium phosphate stones and pH greater than 6.0 may reduce the tendency for uric acid stone formation. Source: [facility] Mobile Complete. Last revised 08-22-2017 [facility] MICROBIOLOGY - GENERAL O RDERABLES Final Result [facility] Department [place] [address] * Comprehensive metabolic panel (05/19/2022 9:58 AM CDT) Sodium 140 135 - 145 mmol/L [facility] Potassium, pl 3.8 3.3 - 4.9 mmol/L [facility] Chloride 107 97 - 110 mmol/L [facility] CO2 23 22 - 32 mmol/L [facility] Anion gap 10 2 - 15 mmol/L [facility] BUN 10 8 - 25 mg/dL [facility] Creatinine 0.69 0.60 - 1.10 mg/dL [facility] Glucose 88 70 - 199 mg/dL [facility] Comment: Interpretive Data Fasting glucose >/= [...] interpretive data was last revised 2017. Calcium 8.8 8.5 - 10.3 mg/dL [facility] Bilirubin, total 0.3 0.1 - 1.2 mg/dL [facility] Protein, pl 7.0 6.5 - 8.5 g/dL [facility] Albumin 4.2 3.5 - 5.0 g/dL [facility] Alk phos 83 40 - 130 Units/L [facility] ALT 45 7 - 45 Units/L [facility] AST 36 10 - 45 Units/L [facility] Blood 05/19/2022 9:58 AM CDT 05/19/2022 10:37 AM CDT [facility] BLOOD ORDERABLES Final R esult [facility] Department [place] [address] * (ABNORMAL) CBC with auto differential (05/19/2022 9:58 AM CDT) Pathologist [facility] WBC 8.2 3.8 - 9.9 K/cumm [facility] Hgb 14.9 11.9 - 15.5 g/dL [facility] Hct 41.6 35.6 - 45.5 % [facility] Plt 247 150 - 400 K/cumm [facility] MPV 9.9 9.1 - 12.3 fL [facility] RBC 4.85 3.90 - 5.20 M/cumm [facility] MCV 85.8 81.3 - 96.4 fL [facility] MCH 30.7 27.1 - 33.3 pg [facility] MCHC 35.8(H) 32.3 - 35.7 g/dL [facility] RDW CV 12.2 11.1 - 14.9 % [facility] RDW SD 38.2 35.7 - 48.1 fL [facility] NRBC abs 0.00 0.00 - 0.01 K/cumm [facility] Blood 05/19/2022 9:58 AM CDT 05/19/2022 10:37 AM CDT us [facility] BLOOD ORDERABLES Final R esult [facility] Department [place] [address] documented in this encounter Visit Diagnoses Diagnosis Acute proctitis- Primary Acute left flank pain Left lower quadrant abdominal pain documented in this encounter Administered Medications Inactive Administered Medications - up to 3 most recent administrations Medication Order MAR Action Action Date Dose Rate Site ioversoL (OPTIRAY 320) intravenous syringe 100 mL 100 mL, intravenous, Once in imaging, contrast, Starting on 05/19/22 at 1026, For 1 dose Contrast Given 05/19/2022 10:26 AM CDT 93 mL lisinopriL (PRINIVIL,ZESTRIL) tablet 20 mg 20 mg, oral, Once, On 05/19/22 at 1213, For 1 dose Given 05/19/2022 12:16 PM CDT 20 mg morphine injection 4 mg 4 mg, intravenous, Administer over 4 Minutes, Every 1 hour PRN, 1st line for pain, Starting on 05/19/22 at 0934, For 3 doses Given 05/19/2022 9:56 AM CDT 4 mg Left Forearm ondansetron (ZOFRAN) injection 4 mg 4 mg, intravenous, Administer over 2 Minutes, Once, On 05/19/22 at 0936, For 1 dose Given 05/19/2022 9:52 AM CDT 4 mg Left Forearm sodium chloride 0.9% bolus 1,000 mL 1,000 mL, intravenous, at 1,000 mL/hr, Administer over 1 Hours, Once, On 05/19/22 at 0933, For 1 dose New Bag 05/19/2022 9:50 AM CDT 1,000 mL 1000 mL/hr Left Forearm documented in this encounter Active and Recently Administered Medications Times are shown in CDT. Scheduled Medication Order 05/17/2022 05/18/2022 05/19/2022 lisinopriL (PRINIVIL,ZESTRIL) tablet 20 mg (COMPLETED) 20 mg, oral, Once, On 05/19/22 at 1213, For 1 dose 1216 (Given - Provid er: Lucas Raza RN) ondansetron (ZOFRAN) injection 4 mg (COMPLETED) 4 mg, intravenous, Administer over 2 Minutes, Once, On 05/19/22 at 0936, For 1 dose 0952 (Given - Provid er: Lucas Raza, RN - Comment: Stop 0954) sodium chloride 0.9% bolus 1,000 mL (COMPLETED) 1,000 mL, intravenous, at 1,000 mL/hr, Administer over 1 Hours, Once, On 05/19/22 at 0933, For 1 dose 0950 (New Bag - Prov ider: Lucas Raza RN)1130 (Stopped - Provider: Lucas Raza RN) PRN Medication Order 05/17/2022 05/18/2022 05/19/2022 ioversoL (OPTIRAY 320) intravenous syringe 100 mL (COMPLETED) 100 mL, intravenous, Once in imaging, contrast, Starting on 05/19/22 at 1026, For 1 dose 1026 (Contrast Given - Provider: Lexi Sprague, RT) morphine injection 4 mg 4 mg, intravenous, Administer over 4 Minutes, Every 1 hour PRN, 1st line for pain, Starting on 05/19/22 at 0934, For 3 doses 0956 (Given - Provid er: Lucas Raza RN - Comment: Stop 1000) documented in this encounter Orders Lab Orders Without Results Count Last Ordered D ate First Ordered Date POCT CREATININE - DEVICE 1 05/19/2022 POCT LACTATE - DEVICE 1 05/19/2022 IV Count Last Ordered Date First Orde red Date INSERT PERIPHERAL IV 1 05/19/2022 SALINE LOCK IV 1 05/19/2022 documented in this encounter Care Teams Palliative Senior Np Relationship Specialty Start Date End Date Miscellaneous, Not In File PCP - General 05/19/2208/14/ 3 documented as of this encounter
--- OUTSIDE RECORDS SUMMARY | 2024-08-17 01:54 | XMS_ITS | Encounter Summary ---
Author Organization [facility] Healthcare Address [address] [place] [address] Care Team Providers Care Pulmonologist Name Role Phone Miscellaneous, Not In File Primary Care Provider Unavailable Reason for Visit * Reason Comments Rectal Bleeding Encounter Details Date Type Department Care Team (Late st Contact Info) Description 05/22/2022 3:24 AM CDT - 05/22/2022 6:17 AM CDT Emergency [facility] Emergency Department [address] [place] [address] Rafael Greene MD [address] [facility] [address] [place] [address] Rectal bleeding (Primary Dx) Discharge Disposition: Discharge to home or self care Social History Tobacco Use Types Packs/Day Years Used Date Smoking Tobacco: Every Day Cigarettes Smokeless Tobacco: Never Alcohol Use Standard Drinks/Week Comments No 0 (1 standard drink = 0.6 oz pur e alcohol) Comments No Sex and Gender Information Value Date Recorded Sex Assigned at Not on file 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 Gender Identity Female 10/01/2023 8:44 AM 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 Sexual Orientation Straight 10/01/2023 8: 44 AM 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 documented as of this encounter Last Filed Vital Signs Vital Sign Reading Time Taken Comments Blood Pressure 159/111 05/22/2022 5:00 AM CDT Pulse 69 05/22/2022 5:00 AM CDT Temperature 36 ??C (96.8 ??F) 05/21/2022 10:06 PM CDT Respiratory Rate 18 05/22/2022 2:13 AM CDT Oxygen Saturation 96% 05/22/2022 5:00 AM CDT Inhaled Oxygen Concentration - - Weight 79.4 kg (175 lb) 05/21/2022 5:38 PM CDT Height 160 cm (5' 3 ) 05/21/2022 5:38 PM CDT Body Mass Index 31 05/21/2022 5:38 PM CDT documented in this encounter Discharge Instructions * Discharge Instructions* Errol Velasquez MD - 05/22/2022 5:46 AM CDT You were seen at [facility] emergency department due to rectal bleeding. On laboratory work and CT examination you do not have findings that were concerning enough to need to be admitted inpatienttoday. For your pain we will prescribe you cream that you be able to put anterior rectum. We will also give you a follow-up with a GI specialist. They will call you within the next week to make an appointment. If you are not able to follow up with them please let your PCP know that you need a colonoscopy. He will also be prescribed a opiate pain medication. It is important that you do not drive or operate machinery on this medication. You can also take Tylenol and ibuprofen as directed on the bottle. Please return to the emergency room if you feel that the bleeding significantly increases. Please return if you develop fevers or chills. Please return if you become lightheaded or feel like you may pass out. 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 oxyCODONE (ROXICODONE) 5 mg immediate release tabletIndications:P ain Take 1 tablet (5 mg total) by mouth every 4 (four) hours as needed for pain for up to 1 day 12 tablet 2 05/23/20 22 hydrocortisone (Anusol-HC) 2.5 % rectal cream Insert [...] Refills Last Filled Start Date End Date oxyCODONE (ROXICODONE) 5 mg immediate release tabletIndications: Pain Take 1 tablet (5 mg total) by mouth every 4 (four) hours as needed for pain for up to 1 day 12 tablet 05/22/2022 2 lidocaine (GLYDO) 2 % jelly in applicator Apply 10 mL (200 mg total) topically nightly 1 applicator 05/22/2022 3 hydrocortisone (Anusol-HC) 2.5 % rectal cream Insert into the rectum 3 (three) times a day to affected areas 30 g 05/22/2022 3 documented in this encounter Discharge Disposition Disposition Code Departure Means Destination Discharge to home or self care documented in this encounter ED Notes * Rafael Greene MD - 05/22/2022 3:27 AM CDT HPI Chief Complaint Patient presents with Rectal Bleeding HPI Patient is a 42-year-old female with a past medical history of hypertension, migraines, kidney stones, external hemorrhoids presenting to the emergency room today due to lower left quadrant pain and blood per rectum. Patient was seen in the emergency room on the of this month and was diagnosed with proctitis. Patient was discharged at that time but since discharge she is had increasing pain in her left lower quadrant that she describes as a cramping pain. And then as of 2:00 a.m. on Saturday she started to have bloody bowel movements. She was having about 8 liquid bowel movements per hour with every other bowel movement having blood mixed into the stool. On presentation now she is having about 3 bowel movements per hour with blood with every 3rd bowel movement. She still endorses lower left quadrant pain that feels crampy. She denies fevers, chills, chest pain, shortness of breath, dysuria. Patient History: Patient Active Problem List Diagnosis [...] Systems Constitutional: Negative for chills and fever. Eyes: Negative for pain and visual disturbance. Respiratory: Negative for cough and shortness of breath. Cardiovascular: Negative for chest pain and palpitations. Gastrointestinal: Positive for abdominal pain, blood in stool and diarrhea. Negative for nausea andvomiting. Genitourinary: Negative for dysuria and hematuria. Musculoskeletal: Negative for arthralgias and back pain. Skin: Negative for color change and rash. Neurological: Positive for headaches. Negative for syncope. All other systems reviewed and are negative. Physical Exam ED Triage Vitals Temp Pulse Resp BP SpO2 05/21/22173705/21/22173705/21/22173705/21/22173805/21/221737 36.9 ??C (98.5 ??F) 90 18 (!) 221/146 95 % Temp src Heart Rate Source Patient Position BP Location FiO2 (%) 05/21/222205 -- -- -- -- Oral Height Height Method Weight Weight Method 05/21/22173705/21/22173705/21/22173705/21/221737 1.6 m (5' 3 ) Stated 79.4 [...] Breath sounds: Normal breath sounds. Abdominal: General: Bowel sounds are normal. There is no distension. Palpations: Abdomen is soft. Tenderness: There is abdominal tenderness (Lower left quadrant). There is no guarding. Genitourinary: Rectum: External hemorrhoid and internal hemorrhoid present. No tenderness or anal fissure. Comments: On anoscopy internal hemorrhoids were visualized although these were not bleeding at thistime. No areas of focal erythema or bleeding. There is extensive external hemorrhoids circumferentially surrounding the anus. External hemorrhoids were not bleeding. Musculoskeletal: Cervical back: Neck supple. Skin: General: Skin is warm and dry. Neurological: Mental Status: She is alert and oriented to person, place, and time. MDM Patient is a 42-year-old female with a past medical history of hypertension, migraines, kidney stones, external hemorrhoids presenting to the emergency room today due to lower left quadrant pain and blood per rectum. Vital signs on arrival significant for hypertension. Physical exam listed above. Differential diagnosis includes worsening proctitis, diverticulitis, nephrolithiasis, UTI, bleeding from external or internal hemorrhoids although this is unlikely as no bleeding was seen on anoscopy. The patient will be worked up with a CBC, CMP, UA, and a CT abdomen and pelvis. For symptomatic relief patient will be started on opiate pain medication as well as receive antibiotics. Patient has also received blood pressure medications lisinopril and hydrochlorothiazide since she is been in the emergency room. Errol Velasquez MD Emergency Medicine PGY 1 Portions of the record may have been created with voice recognition software. Occasional wrong-word or '[id number]' substitutions may have occurred due to the inherent limitations of voice recognition software. Read the chart carefully and recognize, using context, where substitutions have occurred. Attending Summary of Care Physical exam was not significant for any sources of obvious bleeding although she did have many internal and external hemorrhoids. She does have an upcoming appointment with Colorectal surgery to address this. Cross-sectional imaging came back benign as noted below. Given the fact that the patienthas good follow- up with Colorectal surgery and a normal hemoglobin level, we feel that the patient would be safe for outpatient follow-up. she is extremely reliable and promises to come back to the emergency department immediately for any new or worsening symptoms whatsoever. We have also placed a GI referral for colonoscopy in the near future. ED Course as of 05/23/22 0954 Time: 05/22 1030 Comment: CT findings did not show any active cause for the patient's rectal bleeding. There was actually an interval improvement of the proctitis seen on CT scan. Patient's hemoglobin is 15. Other vital signs are stable. At this time we believe patient is safe for discharge with close follow-up with GI and need for a colonoscopy in the near future. By: Errol Velasquez MD Rectal bleeding Errol Velasquez MD Resident 05/22/22 0726 Rafael Greene MD 05/23/22 1654 I have seen and examined the patient on 05/22/2022. I agree with the findings and plan of care as documented in the resident's note. Rafael Greene MD 05/23/22 2205 * Kim Willoughby RN - 05/22/2022 3:24 AM CDT Bed: ED2- Expected date: Expected time: Means of arrival: Car Comments: Kim Willoughby RN 05/22/22 0324 * Kathie Ahumada RN - 05/21/2022 5:39 PM CDT Pt arrived to ED via car dropped off by her c/o rectal bleeding and bloody stools x today. Pt reports she was seen here at [facility] on Saturday for abdominal pain and was dx with proctitis. Pt states she has left lower abdominal pain with nausea and fatigue. Pt reports bright red bloody stools x8 episodes x today. Pt reports her BP is elevated, hx HTN and is compliant with BP meds. BP 221/146here in triage. Hx GERD but no other GI hx. Pt denies any urinary complaints. Pt denies any other complaints. Pt does not currently take any blood thinners. documented in this encounter Plan of Treatment Not on file documented as of this encounter Procedures Procedure Name Priority Date/Time Associated Diagnosis Comments CT ABDOMEN PELVIS W WO CONTRAST ED 05/22/2022 5:21 AM CDT EGFR STAT 05/21/2022 5:46 PM CDT DIFFERENTIAL AUTO STAT 05/21/2022 5:4 6 PM CDT CBC WITH AUTO DIFFERENTIAL STAT 05/21/2022 5:46 PM CDT APTT STAT 05/21/2022 5:46 PM CDT PROTIME-INR STAT 05/21/2022 5:46 PM CDT HC ANTIBODY SCREEN RBC STAT 5:46 PM CDT COMPREHENSIVE METABOLIC PANEL STAT 05/21/2022 5:46 PM CDT documented in this encounter Results * CT Abdomen Pelvis W WO Contrast (05/22/2022 5:21 AM CDT) Anatomical Region Laterality Modality Body N/A Computed Tomogra phy 05/22/2022 5:33 AM CDT Impressions 05/22/2022 7:53 AM CDT [address] evidence of hemorrhage or active extravasation. 2. Previously described findings of proctitis are slightly improved on today's examination. Dictated by: Mynor Molina M.D. The radiology attending physician has personally reviewed this study, and had reviewed and/or edited this written report and agrees with it. Electronically signed by: Shankar De M.D. Narrative 05/22/2022 7:53 AM CDT EXAMINATION: ??Computed tomography of the abdomen and pelvis with and without intravenous contrast HISTORY: Blood per rectum, left lower quadrant pain TECHNIQUE: ??Transaxial computed tomographic images of the abdomen and pelvis were obtained with and without intravenous contrast according to the ischemic bowel/GI bleeding protocol after the uneventful administration of 120 mL Opti-Ray 350 intravenous contrast. COMPARISON: 05/19/2022 FINDINGS: Minimal bibasilar atelectasis. No pleural effusion. Heart size normal with no pericardial effusion. Abdomen/pelvis: No suspicious focal hepatic lesions. Diffuse hepatic steatosis. The spleen, adrenal glands, pancreas, and gallbladder are normal. Kidneys enhance symmetrically and there is no hydronephrosis. Urinary bladder is unremarkable. No free fluid or free gas within the abdomen or pelvis. No bowel obstruction. Previously described rectal thickening with adjacent soft tissue stranding is less conspicuous on today's examination. There is colonic diverticulosis with no CT evidence of acute diverticulitis. The appendix is normal. No findings to suggest hemorrhage or active extravasation. Normal course and caliber of the abdominal aorta with minimal atherosclerotic calcification. No suspicious osseous lesions. There are mild degenerative changes in the visualized spine. Procedure Note Shankar De MD - 05/22/2022 EXAMINATION: Computed tomography of the abdomen and pelvis with and without intravenous contrast HISTORY: Blood per rectum, left lower quadrant pain TECHNIQUE: Transaxial computed tomographic images of the abdomen and pelvis were obtained with and without intravenous contrast according to the ischemic bowel/GI bleeding protocol after the uneventful administration of 120 mL Opti-Ray 350 intravenous contrast. COMPARISON: 05/19/2022 FINDINGS: Minimal bibasilar atelectasis. No pleural effusion. Heart size normal with no pericardial effusion. Abdomen/pelvis: No suspicious focal hepatic lesions. Diffuse hepatic steatosis. The spleen, adrenal glands, pancreas, and gallbladder are normal. Kidneys enhance symmetrically and there is no hydronephrosis. Urinary bladder is unremarkable. No free fluid or free gas within the abdomen or pelvis. No bowel obstruction. Previously described rectal thickening with adjacent soft tissue stranding is less conspicuous on today's examination. There is colonic diverticulosis with no CT evidence of acute diverticulitis. The appendix is normal. No findings to suggest hemorrhage or active extravasation. Normal course and caliber of the abdominal aorta with minimal atherosclerotic calcification. No suspicious osseous lesions. There are mild degenerative changes in the visualized spine. IMPRESSION: 1. No CT evidence of hemorrhage or active extravasation. 2. Previously described findings of proctitis are slightly improved on today's examination. Dictated by: Mynor Molina M.D. The radiology attending physician has personally reviewed this study, and had reviewed and/or edited this written report and agrees with it. Electronically signed by: Shankar De M.D. Errol Velasquez MD IMG CT PROCEDURES Final Re sult * eGFR (05/21/2022 5:46 PM CDT) Pathologist [facility] eGFR >90 90 - 130 mL/min/1. 73 m2 [facility] Comment: Interpretive Data Reference Interval Normal [...] interpretive data was last reviewed 2021. Blood 05/21/2022 5:46 PM CDT 05/21/2022 5:57 PM CDT us Brice Oconnell MD LAB BLOOD ORDERABLES Final Result [facility] Department [place] [address] * (ABNORMAL) Differential, auto (05/21/2022 5:46 PM CDT) [facility] Neutrophil abs 5.5 1.7 - 6.5 K/cumm [facility] Imm gran abs 0.0 0.0 - 0.1 K/cumm [facility] Lymphocyte abs 3.6(H) 0.8 - 3.3 K/cumm [facility] Monocyte abs 0.8 0.2 - 0.8 K/cumm [facility] Eosinophil abs 0.2 0.0 - 0.5 K/cumm [facility] Basophil abs 0.1 0.0 - 0.1 K/cumm [facility] Neutrophil pct 54.5 % [facility] Comment: Interpretive Data Percent cell count reference ranges are not reported, since discordance with absolute values may lead to misinterpretation of CBC data. Current Interpretive Data was last revised on 2017. Imm gran pct 0.2 % [facility] Comment: Interpretive Data Percent cell count reference ranges are not reported, since discordance with absolute values may lead to misinterpretation of CBC data. Current Interpretive Data was last revised on 2017. Lymphocyte pct 35.5 % [facility] Comment: Interpretive Data Percent cell count reference ranges are not reported, since discordance with absolute values may lead to misinterpretation of CBC data. Current Interpretive Data was last revised on 2017. Monocyte pct 7.6 % [facility] Comment: Interpretive Data Percent cell count reference ranges are not reported, since discordance with absolute values may lead to misinterpretation of CBC data. Current Interpretive Data was last revised on 2017. Eosinophil pct 1.7 % [facility] Comment: Interpretive Data Percent cell count reference ranges are not reported, since discordance with absolute values may lead to misinterpretation of CBC data. Current Interpretive Data was last revised on 2017. Basophil pct 0.5 % [facility] Comment: Interpretive Data Percent cell count reference ranges are not reported, since discordance with absolute values may lead to misinterpretation of CBC data. Current Interpretive Data was last revised on 2017. Blood 05/21/2022 5:46 PM CDT 05/21/2022 5:57 PM CDT us Brice Oconnell MD LAB BLOOD ORDERABLES Final Result [facility] Department [place] [address] * Protime-INR (05/21/2022 5:46 PM CDT) [facility] PT 11.8 9.2 - 13.5 sec [facility] INR 1.1 0.9 - 1.2 [facility] Comment: Interpretive data Oral anticoagulant therapeutic ranges: Venous thromboembolism prophylaxis or treatment: 2.0-3.0 CARDIOLOGY Standard range: 2.0-3.0 High-intensity range: 2.5-3.5 Refer to indication-specific guidelines for appropriate target ranges for prosthetic heart valve replacement. Current interpretive data was last revised on 2019. Blood 05/21/2022 5:46 PM CDT 05/21/2022 5:52 PM CDT Brice Oconnell MD LAB BLOOD ORDERABLES Final Result Performing Organization Address City/[facility] Co de Phone Number [facility] Department [place] [address] * aPTT (05/21/2022 5:46 PM CDT) [facility] aPTT 30 27 - 37 sec [facility] Comment: Interpretive Data Therapeutic heparin range: 60.0 - 94.0 seconds. Based on correlation with therapeutic heparin activity range of 0.3-0.7 Units/mL. Current interpretive data was last revised on 2020. Blood 05/21/2022 5:46 PM CDT 05/21/2022 5:52 PM CDT Brice Oconnell MD LAB BLOOD ORDERABLES Final Result Performing Organization Address City/State/[facility] Co de Phone Number [facility] [place] [address] * Type and screen (05/21/2022 5:46 PM CDT) Jorge, indirect Negative [facility] ABO Rh B Positive [facility] Blood 05/21/2022 5:46 PM CDT 05/21/2022 6:22 PM CDT Narrative [facility] - 05/21/2022 7:32 PM CDT Has the patient had Daratumumab or Isatuximab in the past 6 months?->Unknown Brice Oconnell MD LAB BLOOD BANK TEST ORDERA BLES Final Result [facility] Department [place] [address] * Comprehensive metabolic panel (05/21/2022 5:46 PM CDT) Pathologist [facility] Sodium 141 135 - 145 mmol/L [facility] Potassium, pl 3.4 3.3 - 4.9 mmol/L [facility] Chloride 105 97 - 110 mmol/L [facility] CO2 25 22 - 32 mmol/L [facility] Anion gap 11 2 - 15 mmol/L [facility] BUN 9 8 - 25 mg/dL [facility] Creatinine 0.74 0.60 - 1.10 mg/dL [facility] Glucose 96 70 - 199 mg/dL [facility] Comment: Interpretive Data Fasting glucose >/= [...] interpretive data was last revised 2017. Calcium 9.2 8.5 - 10.3 mg/dL [facility] Bilirubin, total 0.2 0.1 - 1.2 mg/dL [facility] Protein, pl 7.4 6.5 - 8.5 g/dL [facility] Albumin 4.8 3.5 - 5.0 g/dL [facility] Alk phos 90 40 - 130 Units/L [facility] ALT 43 7 - 45 Units/L [facility] AST 26 10 - 45 Units/L [facility] Blood 05/21/2022 5:46 PM CDT 05/21/2022 5:57 PM CDT Brice Oconnell MD LAB BLOOD ORDERABLES Final Result [facility] [place] [address] * (ABNORMAL) CBC with auto differential (05/21/2022 5:46 PM CDT) Pathologist [facility] WBC 10.1(H) 3.8 - 9.9 K/cumm [facility] Hgb 15.6(H) 11.9 - 15.5 g/dL [facility] Hct 44.0 35.6 - 45.5 % [facility] Plt 266 150 - 400 K/cumm [facility] MPV 10.0 9.1 - 12.3 fL [facility] RBC 5.11 3.90 - 5.20 M/cumm [facility] MCV 86.1 81.3 - 96.4 fL [facility] MCH 30.5 27.1 - 33.3 pg [facility] MCHC 35.5 32.3 - 35.7 g/dL [facility] RDW CV 12.0 11.1 - 14.9 % [facility] RDW SD 37.9 35.7 - 48.1 fL [facility] NRBC abs 0.00 0.00 - 0.01 K/cumm [facility] Blood 05/21/2022 5:46 PM CDT 05/21/2022 5:57 PM CDT Brice Oconnell MD LAB BLOOD ORDERABLES Final Result Performing Organization Address City/[facility]/ZIP Co de Phone Number [facility] [place] [address] documented in this encounter Visit Diagnoses Diagnosis Rectal bleeding- Primary Hemorrhage of rectum and anus documented in this encounter Administered Medications Inactive Administered Medications - up to 3 most recent administrations Medication Order MAR Action Action Date Dose Rate Site acetaminophen (TYLENOL) tablet 1,000 mg 1,000 mg, oral, Once, On Sat05/22/22 at 0211, For 1 dose Given 05/22/2022 2:14 AM CDT 1,000 mg ampicillin-sulbactam (UNASYN) 3 g/110 mL in sodium chloride 0.9% (premix) 3 g 3 g, intravenous, Administer over 30 Minutes, Every 6 hours scheduled, First dose on Sat05/22/22 at 0418, Indications: proctitisIndications:proctit is New Bag 05/22/2022 4:25 AM CDT 3 g hydroCHLOROthiazide (HYDRODIURIL) tablet 12.5 mg 12.5 mg, oral, Once, On Sat05/22/22 at 0106, For 1 dose Given 05/22/2022 2:14 AM CDT 12.5 mg ioversoL (OPTIRAY 350) syringe 120 mL 120 mL, intravenous, Once in imaging, contrast, Starting on Sat05/22/22 at 0521, For 1 dose Contrast Given 05/22/2022 5:21 AM CDT 120 mL lisinopriL (PRINIVIL,ZESTRIL) tablet 20 mg 20 mg, oral, Once, On Sat05/22/22 at 0106, For 1 dose Given 05/22/2022 2:15 AM CDT 20 mg morphine injection 4 mg 4 mg, intravenous, Administer over 4 Minutes, Once, On Sat05/22/22 at 0411, For 1 dose Given 05/22/2022 4:25 AM CDT 4 mg ondansetron (ZOFRAN) injection 4 mg 4 mg, intravenous, Administer over 2 Minutes, Once, On Sat05/22/22 at 0411, For 1 dose Given 05/22/2022 4:25 AM CDT 4 mg oxyCODONE (ROXICODONE) tablet 5 mg 5 mg, oral, Every 4 hours PRN, 1st line for pain, Starting on Sat05/22/22 at 0344, Indications: PainIndications:Pain Given 05/22/2022 3:51 AM CDT 5 mg documented in this encounter Active and Recently Administered Medications Times are shown in CDT. Scheduled Medication Order 05/20/2022 05/21/2022 05/22/2022 acetaminophen (TYLENOL) tablet 1,000 mg (COMPLETED) 1,000 mg, oral, Once, On Sat05/22/22 at 0211, For 1 dose 0214 (Given - Provid er: Kathie Ahumada RN) ampicillin-sulbactam (UNASYN) 3 g/110 mL in sodium chloride 0.9% (premix) 3 g 3 g, intravenous, Administer over 30 Minutes, Every 6 hours scheduled, First dose on Sat05/22/22 at 0418, Indications: proctitis 0425 (New Bag - Prov ider: Julee Delgado RN)0504 (Stopped - Provider: Julee Delgado RN) hydroCHLOROthiazide (HYDRODIURIL) tablet 12.5 mg (COMPLETED) 12.5 mg, oral, Once, On Sat05/22/22 at 0106, For 1 dose 0214 (Given - Provid er: Kathie Ahumada RN) lisinopriL (PRINIVIL,ZESTRIL) tablet 20 mg (COMPLETED) 20 mg, oral, Once, On Sat05/22/22 at 0106, For 1 dose 0215 (Given - Provid er: Kathie Ahumada RN) morphine injection 4 mg (COMPLETED) 4 mg, intravenous, Administer over 4 Minutes, Once, On Sat05/22/22 at 0411, For 1 dose 0425 (Given - Provid er: Julee Delgado RN) ondansetron (ZOFRAN) injection 4 mg (COMPLETED) 4 mg, intravenous, Administer over 2 Minutes, Once, On Sat05/22/22 at 0411, For 1 dose 0425 (Given - Provid er: Julee Delgado RN) PRN Medication Order 05/20/2022 05/21/2022 05/22/2022 ioversoL (OPTIRAY 350) syringe 120 mL (COMPLETED) 120 mL, intravenous, Once in imaging, contrast, Starting on Sat05/22/22 at 0521, For 1 dose 0521 (Contrast Given - Provider: Sirisha Helms, RT) oxyCODONE (ROXICODONE) tablet 5 mg 5 mg, oral, Every 4 hours PRN, 1st line for pain, Starting on Sat05/22/22 at 0344, Indications: Pain 0351 (Given - Provid er: Julee Delgado RN) documented in this encounter Orders IV Count Last Ordered Date First Orde red Date INSERT PERIPHERAL IV 1 05/21/2022 documented in this encounter Care Teams Pulmonologist Relationship Specialty Start Date End Date Miscellaneous, Not In File PCP - General 05/19/2208/14/ 3 documented as of this encounter
--- OUTSIDE RECORDS SUMMARY | 2024-08-17 01:54 | XMS_ITS | Encounter Summary ---
Author Organization [facility] Address [address] [place] [address] Phone Care Team Providers Care Geoduck Diver Name Role Phone Lucas Carter DO Primary Care Provider [phone]- [phone] Reason for Referral * Consultation (Routine) - Pending Review Specialty Diagnoses / Procedures Referred By Lluvia webb Referred To Contact Physical Therapy Diagnoses Chronic bilateral low back pain without sciatica Chronic neck pain B[place] [address] [place] [address] Phone: tel: fax: [facility] [place] [address] [facility] [address] [place] [address] Phone: tel: fax: Referral ID Status Reason Start Date Expiration Date Visits Requested Visits Authorized [id number] Pending Review Evaluate and Treat 09/10/2023 10/09/2024 24 24 Question Answer PTRFR PT Evaluate and Treat Reason for Visit Chronic low back pain, chronic neck pain, bilateral hand numbness Therapy options discussed with patient? Yes Location provided for therapy services is: Patient requested/Patient preferred Please select the performing region: [facility] [[id number]] Please select the performing department: [facility] [[id number]] # of visits: 24 Comments Possible L5-S1 facet mediated pain. Possible R carpal tunnel syndrome versus R cervical radiculitis. UNTS PAYABLE CLERK Encounter Details Date Type Department Care Team (Late st Contact Info) Description 09/10/2023 11:00 AM ACCOUNTS PAYABLE CLERK Office Visit [facility] [address] [facility] [address] [address] [place] [address] [place] [address] [place] [address] Chronic bilateral low back pain without sciatica [...] on file Legal Sex Female 9:06 PM ACCOUNTS PAYABLE CLERK Gender Identity Female 10/01/2023 8:44 AM ACCOUNTS PAYABLE CLERK Sexual Orientation Straight 10/01/2023 8: 44 AM ACCOUNTS PAYABLE CLERK documented as of this encounter Progress Notes * Catherine Teague MD - 09/10/2023 11:00 AM CST NEW PATIENT VISIT CHIEF COMPLAINT Low back pain, right worse than left hand numbness HISTORY OF PRESENT ILLNESS This is a 43-year-old female presenting with 2 main complaints. First, she reports history of chronic low back issues. About 10 years ago, she had physical therapy and some injections that did help. Over time, her pain has gotten progressively worse. Activities such as vacuuming seemed to make the symptoms worse. She also reports that first thing in the mornings, her legs feel shaky and they do not function right. When she walks around a little bit the legs feel better. Patient gets episodic flare-ups of back pain that last 4-5 days at a time to the point where it is difficult for her to work. This occurs maybe 2 times a month. She did recently go to a chiropractor 2 weeks ago, but she has n ot sure if this was helpful. Second, patient complains of 1 year history of right worse than left hand numbness. Numbness is primarily in the 1st through 3rd digits. There is also some right periscapular discomfort. She reports difficulty with turning her head to the right. She notes that when she has her arms up such as typing, this tends to make her hands go to sleep. She also notes that if sheflexes her neck all way forward, she feels a shooting pain down both legs. PAST MEDICAL HISTORY She has a past medical history of GERD (gastroesophageal reflux disease), Hypertension, Kidney stone, and Migraine. PAST SURGICAL HISTORY She has a past surgical history that includes Hysterectomy; section; Kidney surgery; and Cholecystectomy. INITIAL REVIEW OF MEDICATIONS She has a current medication list which includes the following prescription(s): acetaminophen, hydrochlorothiazide, hydrocodone-acetaminophen, ibuprofen, losartan, multivit-min/ferrous fumarate, omeprazole, ondansetron odt, tamsulosin, amlodipine, cyclobenzaprine, dicyclomine, fluconazole, gabapentin, hydralazine, and oxycodone. DRUG ALLERGIES She is allergic to ketorolac and tramadol. SOCIAL HISTORY Patient notes that her job involves sitting in one place for 14 hours out of the day. PHYSICAL EXAMINATION CONSTITUTIONAL: In general, patient is well appearing in no apparent distress. PSYCH: Mood and affect are appropriate. RESPIRATORY: Breathing is nonlabored with no audible wheezing. NEURO: Manual muscle testing of the upper extremities revealed strength to be 5/5 in all muscles groups tested for C5-T1 myotomes. Manual muscle testing of the lower extremities revealed strength to be 5/5 in all muscle groups tested for L2-S1 myotomes. Dyer's is negative bilaterally. MSK: On exam of her low back, pain is worsened with lumbar flexion. She localizes pain to the bilateral L5-S1 region. HILDA on the right also causes some back discomfort. On exam of her neck, this isworsened with cervical flexion, rotation right. Pain localizes to the C7 spinous process region with these movements. Spurling's to the right does cause some radiation to the right shoulder region, but not down to the hand. Carpal compression test is positive on the right with reproduction of her right hand tingling. Tinel's at the carpal tunnel and cubital tunnel are negative bilaterally. REVIEW OF X-RAYS/STUDIES I ordered and personally reviewed x-rays today. My independent interpretation of x-rays of the cervical spine are that it shows multilevel degenerative disc disease. There is auto fusion at C6-7 withobliteration of the disc space in between, and fusion of the spinous processes posteriorly. There is anterior bridging osteophyte at C5-6. There is straightening of the normal cervical lordosis. CT scan of the abdomen pelvis from 08/23/2023 was personally reviewed. My independent interpretation is that this shows multilevel lumbar degenerative disc disease, no level with spondylolisthesis. There is significant degenerative disc disease at T10-11 with calcified disc fragment. This appears to cause some central canal stenosis. IMPRESSION/DIAGNOSIS 43-year-old female with chronic low back pain that manifests as episodic severe low back pain with some associated leg dysfunction and shakiness. CT scan of her lumbar spine does show a calcified disc fragment at T10-11 that may cause some central canal stenosis. She also complains of neck pain andright worse than left hand numbness. X-rays of her cervical spine show auto fusion at C6-7. On exam, her right hand numbness seems like it could be related to carpal tunnel syndrome. TREATMENT PLAN Physical therapy: Patient was written a prescription for physical therapy. FOLLOW UP Patient is told the message back in 6 weeks with an update. If still having same symptoms, would potentially consider ordering MRI of the entire spine. Catherine Teague MD UNTS PAYABLE CLERK documented in this encounter Plan of Treatment Scheduled Referrals Name Type Priority Associated Diagnoses Order Schedule Ambulatory referral order to Physical Therapy - Outpatient Referral Routine Chronic bilateral low back pain without sciatica Chronic neck pain Bilateral hand numbness Expected: 09/10/2023 (Approximate), Expires: 09/10/2024 documented as of this encounter Procedures Procedure Name Priority Date/Time Associated Diagnosis Comments XR SPINE CERVICAL COMPLETE 4 OR 5 VW Schedule Routine, Read Routine (OP Routine) 09/10/2023 11:50 AM ACCOUNTS PAYABLE CLERK Chronic neck pain documented in this encounter Results * X-ray cervical spine complete 4 or 5 vw (09/10/2023 11:50 AM ACCOUNTS PAYABLE CLERK) Anatomical Region Laterality Modality Spine N/A Computed Radiogr aphy 09/10/2023 12:3 8 PM ACCOUNTS PAYABLE CLERK Impressions 09/10/2023 12:38 PM ACCOUNTS PAYABLE CLERK 1. ??Mild multilevel degenerative disc in the cervical spine. Electronically signed by: Antoni Ayala MD Narrative 09/10/2023 12:38 PM ACCOUNTS PAYABLE CLERK EXAMINATION: XR SPINE CERVICAL COMPLETE 4 OR [...] documented in this encounter Visit Diagnoses Diagnosis Chronic bilateral low back pain without sciatica- Primary Chronic neck pain Cervicalgia Bilateral hand numbness Disturbance of skin sensation documented in this encounter Historical Medications * This list may reflect changes made after this encounter. hydroCHLOROthiaz sandeep (HYDRODIURIL) 25 mg tabletIndication s:hypertension Take 1 tablet (25 mg total) by mouth sheep boner 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 losartan (COZAAR) 50 mg tabletIndication s:hypertension Take 1 tablet (50 mg total) by mouth 2 (two) times a day added in this encounter Care Teams Geoduck Diver Relationship Specialty Start Date End Date Lucas Carter DO PCP - General Internal Medicine 08/15/22 documented as of this encounter
--- OUTSIDE RECORDS SUMMARY | 2024-08-17 01:54 | XMS_ITS | Encounter Summary ---
Author Organization [facility] Address [address] [place] [address] Care Team Providers Care Lyric Writer Name Role Phone Lucas Carter DO Primary Care Provider [phone]- [phone] Encounter Details Date Type Department Care Team (Late st Contact Info) Description 08/27/2023 Patient Self-Triage [facility] [address] [place] [address] [place], [facility] Provider [address] [place], [place] [id number] Social History Tobacco Use Types Packs/Day Years [...] on file Legal Sex Female 9:06 PM SUPERVISOR SPRING UP Gender Identity Female 10/01/2023 8:44 AM SUPERVISOR SPRING UP Sexual Orientation Straight 10/01/2023 8: 44 AM SUPERVISOR SPRING UP documented as of this encounter Plan of Treatment Not on file documented as of this encounter Visit Diagnoses Not on filedocumented in this encounter Care Teams Lyric Writer Relationship Specialty Start Date End Date Lucas Carter DO PCP - General Internal Medicine 08/15/22 documented as of this encounter
--- OUTSIDE RECORDS SUMMARY | 2024-08-17 01:54 | XMS_ITS | Encounter Summary ---
Author Organization [facility] Healthcare Address [address] [place] [address] Care Team Providers Care Garbage Collection Supervisor Name Role Phone Lucas Carter DO Primary Care Provider [phone] Reason for Visit * Reason Comments Urinary Problem Encounter Details Date Type Department Care Team (Late st Contact Info) Description 08/10/2023 8:13 PM HARDWOOD FLOOR INSTALLATION HELPER - 08/10/2023 10:53 PM HARDWOOD FLOOR INSTALLATION HELPER Emergency [facility] Emergency Department [address] [place] [id number] Flank pain (Primary Dx) Discharge Disposition: Discharge to home or self care Social History Tobacco Use Types Packs/Day Years Used Date Smoking Tobacco: Every Day Cigarettes Smokeless Tobacco: Never Alcohol Use Standard Drinks/Week Comments No 0 (1 standard drink = 0.6 oz pur e alcohol) Personal Safety Answer Date Recorded Getting School Help Needed Denies 08/10 Comments No Sex and Gender Information Value Date Recorded Sex Assigned at Not on file Legal Sex Female 9:06 PM HARDWOOD FLOOR INSTALLATION HELPER Gender Identity Female 10/01/2023 8:44 AM HARDWOOD FLOOR INSTALLATION HELPER Sexual Orientation Straight 10/01/2023 8: 44 AM HARDWOOD FLOOR INSTALLATION HELPER documented as of this encounter Last Filed Vital Signs Vital Sign Reading Time Taken Comments Blood Pressure 169/134 08/10/2023 6:39 PM HARDWOOD FLOOR INSTALLATION HELPER Pulse 95 08/10/2023 6:39 PM HARDWOOD FLOOR INSTALLATION HELPER Temperature 36.8 ??C (98.2 ??F) 08/10/2023 6:39 PM CS T Respiratory Rate 17 08/10/2023 6:39 PM HARDWOOD FLOOR INSTALLATION HELPER Oxygen Saturation 99% 08/10/2023 6:39 PM HARDWOOD FLOOR INSTALLATION HELPER Inhaled Oxygen Concentration - - Weight 81.6 kg (180 lb) 08/10/2023 6:39 PM HARDWOOD FLOOR INSTALLATION HELPER Height 160 cm (5' 3 ) 08/10/2023 6:39 PM HARDWOOD FLOOR INSTALLATION HELPER Body Mass Index 31.89 08/10/2023 6:39 PM HARDWOOD FLOOR INSTALLATION HELPER documented in this encounter Discharge Instructions * Discharge Instructions* Jamila Clements PA - 08/10/2023 10:33 PM HARDWOOD FLOOR INSTALLATION HELPER You were seen today for evaluation of nausea and bilateral flank pain. Your lab work and physical exam reassuring. Your CT showed no change in your kidney stone. It did show a slight increase of yourovarian cyst. Please follow up with Urology and Gynecology for further management. To help with symptoms in the meantime I have sent you home with Zofran to help with nausea and Paige to help with pain. It was a pleasure taking care of you today. We thank you for entrusting our team with your healthcare needs WOOD FLOOR INSTALLATION HELPER documented in this encounter Medications at Time of Discharge MULTIVIT-MINERALS/F ERROUS FUM (MULTI VITAMIN ORAL)Indications:he alth Take 1 tablet by mouth order desk clerk 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 omeprazole (PriLOSEC) 20 mg capsuleIndications: Treatment of Non-Bleeding Gastric Disorder Take 1 capsule (20 mg total) by mouth order desk clerk 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 ondansetron ODT (ZOFRAN-ODT) 4 mg disintegrating tablet Take 1 tablet (4 mg total) by mouth every 8 (eight) hours as needed for nausea or vomiting 20 tablet 08/10/2023 amLODIPine (NORVASC) 10 mg tablet Take 1 [...] to 8 doses 8 tablet 08/10/2023 4 tamsulosin (FLOMAX) 0.4 mg extended release capsuleIndications: Urolithiasis Take 1 capsule (0.4 mg total) by mouth daily as needed (Kidney stones) 4 documented as of this encounter Ordered Prescriptions Prescription Sig Dispense Quantity Refills Last Filled Start Date End Date ondansetron ODT (ZOFRAN-ODT) 4 mg disintegrating tablet Take 1 tablet (4 mg total) by mouth every 8 (eight) hours as needed for nausea or vomiting 20 tablet 08/10/2023 HYDROcodone-acetamin ophen (NORCO) 5-325 mg per tabletIndications:David in Take 1 tablet by mouth every 6 (six) hours as needed for pain for up to 8 doses 8 tablet 08/10/2023 4 documented in this encounter Discharge Disposition Disposition Code Departure Means Destination Comment s Discharge to home or self care documented in this encounter ED Notes * Jamila Clements PA - 08/10/2023 10:53 PM CST HPI Chief Complaint Patient presents with Urinary Problem 43-year-old A&O x4 female patient with past medical history multiple kidney stones, hypertension presents for evaluation of bilateral flank pain and nausea with dysuria since this morning. Deniesfever, chills, dizziness, dyspnea, chest pain, emesis, diarrhea. Patient History: Patient Active Problem List Diagnosis [...] file Review of Systems Review of Systems Gastrointestinal: Positive for nausea. Genitourinary: Positive for dysuria and flank pain. All other systems reviewed and are negative. Physical Exam ED Triage Vitals [08/10/23 1839] Temp Pulse Resp BP SpO2 36.8 ??C (98.2 ??F) 95 17 (!) 169/134 99 % Temp src Heart Rate Source Patient Position BP Location FiO2 (%) Temporal -- -- -- -- Height Height Method Weight Weight Method 1.6 m (5' 3 ) Stated 81.6 kg (180 lb) Stated Physical Exam Vitals and nursing note reviewed. Constitutional: General: She is not in acute distress. Appearance: Normal appearance. She is normal weight. She is not ill-appearing or toxic-appearing. HENT: Head: Normocephalic and atraumatic. Eyes: Pupils: Pupils are equal, round, and reactive to light. Cardiovascular: Rate and Rhythm: Normal rate. Pulses: Normal pulses. Heart sounds: Normal heart sounds. No murmur heard. No friction rub. No gallop. Pulmonary: Effort: Pulmonary effort is normal. No respiratory distress. Breath sounds: Normal breath sounds. No stridor. No wheezing, rhonchi or rales. Chest: Chest wall: No tenderness. Abdominal: Tenderness: There is no abdominal tenderness. There is no right CVA tenderness or left CVA tenderness. Musculoskeletal: General: No swelling or tenderness. Normal range of motion. Cervical back: Normal range of motion. Skin: General: Skin is warm and dry. Capillary Refill: Capillary refill takes less than 2 seconds. Findings: No bruising, erythema or rash. Neurological: General: No focal deficit present. Mental Status: She is alert and oriented to person, place, and time. Cranial Nerves: No cranial nerve deficit. Sensory: No sensory deficit. Motor: No weakness. Coordination: Coordination normal. Gait: Gait normal. Deep Tendon Reflexes: Reflexes normal. [facility] Medical Decision Making 43-year-old A&O x4 female patient with past medical history multiple kidney stones with resulting scarring, hysterectomy, hypertension, presents for evaluation of bilateral flank pain since this morning. She denies fever, chills, dizziness, dyspnea, emesis, diarrhea, constipation. Does endorse nausea without emesis. States pain is more sharp on left, more dull on right. Does endorse dysuria. Denies urgency, retention, pyuria, hematuria. Physical exam shows well-appearing female patient. Lungs clear all morneo. Heart tones normal. No CVA tenderness. Abdomen soft nontender all quadrants. No swelling lower extremities Differential: Cystitis, pyelonephritis, nephrolithiasis, ovarian cyst, gastritis Plan: Labs, UA, CT, pain control ED course: Patient feeling better. 2 mm stone unchanged from previous. Cyst slightly increased but nothing significantly. No signs of torsion. We will send home with Annabelle. She has not upcoming appointment with her urologist in 3-4 days. Return precautions given. All questions answered at this time. OBGYN info given Amount and/or Complexity of Data Reviewed Labs: Decision-making details documented in ED Course. Radiology: ordered. Decision-making details documented in ED Course. Risk Prescription drug management. ED Course as of 08/10/23 2349 Time: 08/10 2020 Value: RBC, ur(!): 3-5 Comment: (Reviewed) By: Jamila Clements PA Time: 08/10 2227 Value: CBC with auto differential: WBC 8.7 Hgb 14.2 Hct 40.0 Plt 238 MPV 9.6 RBC 4.59 MCV 87.1 MCH 30.9 MCHC 35.5 RDW CV 12.7 RDW SD 40.2 NRBC abs 0.00 Comment: Unremarkable By: Jamila Clements PA Time: 08/10 2227 Value: Comprehensive metabolic panel(!): Sodium 139 Potassium, pl 3.3 Chloride 105 CO2 22 Anion gap 12 BUN 13 Creatinine 0.58(!) Glucose 81 Calcium 9.6 Bilirubin, total 0.3 Protein, pl 6.8 Albumin 4.0 Alk phos 88 ALT 58(!) AST 40 Comment: Elevated ALT By: Jamila Clemnets PA Time: 08/10 2228 Value: CT Abdomen Pelvis WO Contrast Comment: 1. Nonobstructive 2 mm calculus in the interpolar region of the left kidney. No hydronephrosis or hydroureter. 2. Sigmoid colonic diverticulosis. No CT evidence of acute diverticulitis. Normal appendix. 3. Left ovarian hypoattenuating lesion measuring approximately 5.3 cm which has increased in size compared to prior study. Dedicated pelvic ultrasound could be considered for further evaluation. By: Jamila Clements PA Time: 08/10 2229 Comment: Previous measuring of left ovarian cyst was 4.8 By: Jamila Clements PA Final diagnoses: Flank pain Jamila Clements PA 08/10/232348 Cosigned by Jamila Ramey MD at 08/15/2023 4:16 PM HARDWOOD FLOOR INSTALLATION HELPER WOOD FLOOR INSTALLATION HELPER WOOD FLOOR INSTALLATION HELPER Associated attestation - Jamila Ramey MD - 08/15/2023 4:16 PM HARDWOOD FLOOR INSTALLATION HELPER I agree with the physician central supply assistant's assessment and plan * Celina Young RN - 08/10/2023 6:38 PM CST Pt states that she thinks she has a kidney infection or kidney stones. Pt states she didn't go verymuch yesterday. Pt states that she has right sided flank pain and pain in her lower abdomen. WOOD FLOOR INSTALLATION HELPER documented in this encounter Plan of Treatment Not on file documented as of this encounter Procedures Procedure Name Priority Date/Time Associated Diagnosis Comments EGFR STAT 08/10/2023 9:43 PM HARDWOOD FLOOR INSTALLATION HELPER DIFFERENTIAL AUTO STAT 08/10/2023 9:4 3 PM HARDWOOD FLOOR INSTALLATION HELPER CBC WITH AUTO DIFFERENTIAL STAT 08/10/2023 9:43 PM HARDWOOD FLOOR INSTALLATION HELPER COMPREHENSIVE METABOLIC PANEL STAT 08/10/2023 9:43 PM HARDWOOD FLOOR INSTALLATION HELPER CT ABDOMEN PELVIS WO CONTRAST ED 08/10/2023 9:14 PM HARDWOOD FLOOR INSTALLATION HELPER URINALYSIS AND REFLEX TO MICROSCOPIC AND CULTURE STAT 08/10/2023 6:52 PM HARDWOOD FLOOR INSTALLATION HELPER URINALYSIS, MICROSCOPIC ONLY STAT 08/10/2023 6:52 PM HARDWOOD FLOOR INSTALLATION HELPER documented in this encounter Results * eGFR (08/10/2023 9:43 PM HARDWOOD FLOOR INSTALLATION HELPER) Pathologist [facility] eGFR 114 mL/min/1. 73 m2 [facility] ([place]) Comment: Interpretive Data Reference Interval Normal ?>/= [...] interpretive data was last reviewed 2021. Blood 08/10/2023 9:43 PM HARDWOOD FLOOR INSTALLATION HELPER 08/10/2023 9:46 PM HARDWOOD FLOOR INSTALLATION HELPER us Jamila [facility] BLOOD ORDERABLES Final Resu lt [facility] ([place]) [facility] Department [place] [address] * (ABNORMAL) Differential, auto (08/10/2023 9:43 PM HARDWOOD FLOOR INSTALLATION HELPER) Pathologist [facility] Neutrophil abs 4.6 1.5 - 6.5 K/cumm [facility] ([place]) Imm gran abs 0.0 0.0 - 0.1 K/cumm [facility] ([place]) Lymphocyte abs 2.9 0.8 - 3.3 K/cumm [facility] ([place]) Monocyte abs 1.1(H) 0.2 - 0.8 K/cumm [facility] ([place]) Eosinophil abs 0.2 0.0 - 0.5 K/cumm [facility] ([place]) Basophil abs 0.0 0.0 - 0.1 K/cumm [facility] ([place]) Neutrophil pct 52.4 % [facility] ([place]) Comment: Interpretive Data Percent cell count reference ranges are not reported, since discordance with absolute values may lead to misinterpretation of CBC data. Current Interpretive Data was last revised on 2017. Imm gran pct 0.2 % [facility] ([place]) Comment: Interpretive Data Percent cell count reference ranges are not reported, since discordance with absolute values may lead to misinterpretation of CBC data. Current Interpretive Data was last revised on 2017. Lymphocyte pct 33.1 % [facility] ([place]) Comment: Interpretive Data Percent cell count reference ranges are not reported, since discordance with absolute values may lead to misinterpretation of CBC data. Current Interpretive Data was last revised on 2017. Monocyte pct 12.1 % [facility] ([place]) Comment: Interpretive Data Percent cell count reference ranges are not reported, since discordance with absolute values may lead to misinterpretation of CBC data. Current Interpretive Data was last revised on 2017. Eosinophil pct 1.9 % [facility] ([place]) Comment: Interpretive Data Percent cell count reference ranges are not reported, since discordance with absolute values may lead to misinterpretation of CBC data. Current Interpretive Data was last revised on 2017. Basophil pct 0.3 % [facility] ([place]) Comment: Interpretive Data Percent cell count reference ranges are not reported, since discordance with absolute values may lead to misinterpretation of CBC data. Current Interpretive Data was last revised on 2017. Blood 08/10/2023 9:43 PM HARDWOOD FLOOR INSTALLATION HELPER 08/10/2023 9:46 PM HARDWOOD FLOOR INSTALLATION HELPER us Jamila [facility] BLOOD ORDERABLES Final Resu lt [facility] ([place]) [facility] Department [place] [address] * (ABNORMAL) Comprehensive metabolic panel (08/10/2023 9:43 PM HARDWOOD FLOOR INSTALLATION HELPER) Sodium 139 135 - 145 mmol/L [facility] ([place]) Potassium, pl 3.3 3.3 - 4.9 mmol/L [facility] ([place]) Chloride 105 97 - 110 mmol/L [facility] ([place]) CO2 22 22 - 32 mmol/L [facility] ([place]) Anion gap 12 2 - 15 mmol/L [facility] ([place]) BUN 13 6 - 25 mg/dL [facility] ([place]) Creatinine 0.58(L) 0.60 - 1.10 mg/dL [facility] ([place]) Glucose 81 70 - 199 mg/dL [facility] ([place]) Comment: Interpretive Data Fasting glucose >/= 126 [...] Calcium 9.6 8.5 - 10.3 mg/dL [facility] ([place]) Bilirubin, total 0.3 0.1 - 1.2 mg/dL [facility] ([place]) Protein, pl 6.8 6.5 - 8.5 g/dL [facility] ([place]) Albumin 4.0 3.5 - 5.0 g/dL [facility] ([place]) Alk phos 88 40 - 130 Units/L [facility] ([place]) ALT 58(H) 7 - 45 Units/L [facility] ([place]) AST 40 10 - 45 Units/L [facility] ([place]) Blood 08/10/2023 9:43 PM HARDWOOD FLOOR INSTALLATION HELPER 08/10/2023 9:46 PM HARDWOOD FLOOR INSTALLATION HELPER us Jamila [facility] BLOOD ORDERABLES Final Resu lt [facility] ([place]) [facility] Department [place] [address] * CBC with auto differential (08/10/2023 9:43 PM HARDWOOD FLOOR INSTALLATION HELPER) WBC 8.7 3.8 - 9.9 K/cumm [facility] ([place]) Hgb 14.2 11.9 - 15.5 g/dL [facility] ([place]) Hct 40.0 35.6 - 45.5 % [facility] ([place]) Plt 238 150 - 400 K/cumm [facility] ([place]) MPV 9.6 9.1 - 12.3 fL [facility] ([place]) RBC 4.59 3.90 - 5.20 M/cumm [facility] ([place]) MCV 87.1 81.3 - 96.4 fL [facility] ([place]) MCH 30.9 27.1 - 33.3 pg [facility] ([place]) MCHC 35.5 32.3 - 35.7 g/dL [facility] ([place]) RDW CV 12.7 11.1 - 14.9 % [facility] ([place]) RDW SD 40.2 35.7 - 48.1 fL [facility] ([place]) NRBC abs 0.00 0.00 - 0.01 K/cumm [facility] ([place]) Blood 08/10/2023 9:43 PM HARDWOOD FLOOR INSTALLATION HELPER 08/10/2023 9:46 PM HARDWOOD FLOOR INSTALLATION HELPER us Jamila [facility] BLOOD ORDERABLES Final Resu lt [facility] ([place]) [facility] Department [place] [address] * CT Abdomen Pelvis WO Contrast (08/10/2023 9:14 PM HARDWOOD FLOOR INSTALLATION HELPER) Anatomical Region Laterality Modality Body N/A Computed Tomogra phy 08/10/2023 10:0 3 PM HARDWOOD FLOOR INSTALLATION HELPER Narrative 08/10/2023 10:12 PM HARDWOOD FLOOR INSTALLATION HELPER EXAM DESCRIPTION: ?? CT ABDOMEN PELVIS WO CONTRAST REASON FOR STUDY: ?? Flank pain, kidney stone suspected ?? C/o right lower back pain and lower abdominal cramping since 08/08/23. Hx of kidney stones/stents, c-sections, cholecystectomy ? TECHNIQUE: CT scan of the abdomen and pelvis performed without intravenous and without ??oral contrast using helical scanning technique. Reconstructed coronal and sagittal MPR images reviewed. All images stored on PACS. Automated exposure control was used as a dose optimization technique for this examination. COMPARISON: ?? 12/24/2022 , 11/07/2022 REFERENCE: Per ACR white paper recommendations, unless otherwise specified no follow-up imaging is recommended for incidental renal and adrenal lesions per consensus recommendations based on imaging criteria. Further lab evaluation could be pursued based on clinical findings. FINDINGS: The sensitivity for detection of visceral lesions is diminished without the use of intravenous contrast. LOWER CHEST: ?? Mild subsegmental atelectasis and slight right middle lobe scarring. ??There has been interval development of subtle geographic regions of ground-glass attenuation in both lower lobes and right middle lobe which could reflect early atypical pneumonia or inflammatory pneumonitis. ??No pleural effusion. ??Imaged portions of the heart are normal. LIVER: ?? Mild hepatomegaly. ??Mild diffuse hepatic steatosis with focal fatty sparing. ??No identified cystic or solid masses. GALLBLADDER: Interval cholecystectomy. BILE DUCTS: ?? No intrahepatic or extrahepatic ductal dilatation. SPLEEN: ?? Normal size. ??No focal lesions. PANCREAS: ?? No identified cystic or solid masses. ??No significant calcifications. No adjacent inflammation or peripancreatic fluid collections. Pancreatic duct not dilated. ADRENALS: ?? Normal. KIDNEYS/URINARY TRACT: ?? No identified significant cystic or solid masses. ?? There is an unchanged nonobstructive 2 mm calculus in the interpolar region of the left kidney.. ??No hydronephrosis or hydroureter. ?Urinary bladder is unremarkable. GI: ?? The stomach is normal. ??The small bowel and colon are normal in course and caliber with no evidence of obstruction or inflammation. ??Sigmoid colonic diverticulosis with no CT evidence of acute diverticulitis. ??The appendix is normal. PERITONEUM: ?? No ascites or free air. ?? No lymphadenopathy. RETROPERITONEUM: ?? No mass or adenopathy. REPRODUCTIVE: ?? Prior hysterectomy. ??There is a left ovarian hypoattenuating lesion measuring approximately 5.3 ??Cm which has increased in size compared to prior study. VASCULATURE: ?? No abdominal aortic aneurysm. MUSCULOSKELETAL: ?? No acute fractures or aggressive osseous lesions. IMPRESSION: 1. Nonobstructive 2 mm calculus in the interpolar region of the left kidney. ?? No hydronephrosis or hydroureter. 2. ??Sigmoid colonic diverticulosis. ??No CT evidence of acute diverticulitis. ?? Normal appendix. 3. Left ovarian hypoattenuating lesion measuring approximately 5.3 cm which has increased in size compared to prior study. ??Dedicated pelvic ultrasound could be considered for further evaluation. THIS IS AN ELECTRONICALLY VERIFIED FINAL REPORT 08/10/2023 10:12 PM - Electronically signed by ??Lisa Matute M.D. AT: AT D: ??08/10/2023 10:12 PM T: ??08/10/2023 10:12 PM Report ID: [id number] Reading Location: ??[id number] Procedure Note Lisa Matute MD - 08/10/2023 EXAM DESCRIPTION: CT ABDOMEN PELVIS WO CONTRAST REASON FOR STUDY: Flank pain, kidney stone suspected C/o right lower back pain and lower abdominal cramping since 08/08/23. Hxof kidney stones/stents, c-sections, cholecystectomy TECHNIQUE: CT scan of the abdomen and pelvis performed without intravenousand without oral contrast using helical scanning technique. Reconstructed coronal and sagittal MPR images reviewed. All images stored on PACS.Automated exposure control was used as a dose optimization technique for this examination. COMPARISON: 12/24/2022 , 11/07/2022 REFERENCE: Per ACR white paper recommendations, unless otherwise specifiedno follow-up imaging is recommended for incidental renal and adrenal lesionsper consensus recommendations based on imaging criteria. Further labevaluation could be pursued based on clinical findings. FINDINGS: The sensitivity for detection of visceral lesions is diminished withoutthe use of intravenous contrast. LOWER CHEST: Mild subsegmental atelectasis and slight right middle lobe scarring. There has been interval development of subtle geographicregions of ground-glass attenuation in both lower lobes and right middle lobe whichcould reflect early atypical pneumonia or inflammatory pneumonitis. No pleural effusion. Imaged portions of the heart are normal. LIVER: Mild hepatomegaly. Mild diffuse hepatic steatosis with focalfatty sparing. No identified cystic or solid masses. GALLBLADDER: Interval cholecystectomy. BILE DUCTS: No intrahepatic or extrahepatic ductal dilatation. SPLEEN: Normal size. No focal lesions. PANCREAS: No identified cystic or solid masses. No significant calcifications. No adjacent inflammation or peripancreatic fluidcollections. Pancreatic duct not dilated. ADRENALS: Normal. KIDNEYS/URINARY TRACT: No identified significant cystic or solid masses. There is an unchanged nonobstructive 2 mm calculus in the interpolarregion of the left kidney.. No hydronephrosis or hydroureter. Urinary bladder is unremarkable. GI: The stomach is normal. The small bowel and colon are normal incourse and caliber with no evidence of obstruction or inflammation. Sigmoidcolonic diverticulosis with no CT evidence of acute diverticulitis. The appendixis normal. PERITONEUM: No ascites or free air. No lymphadenopathy. RETROPERITONEUM: No mass or adenopathy. REPRODUCTIVE: Prior hysterectomy. There is a left ovarianhypoattenuating lesion measuring approximately 5.3 Cm which has increased in sizecompared to prior study. VASCULATURE: No abdominal aortic aneurysm. MUSCULOSKELETAL: No acute fractures or aggressive osseous lesions. IMPRESSION: 1. Nonobstructive 2 mm calculus in the interpolar region of the leftkidney. No hydronephrosis or hydroureter. 2. Sigmoid colonic diverticulosis. No CT evidence of acutediverticulitis. Normal appendix. 3. Left ovarian hypoattenuating lesion measuring approximately 5.3 cmwhich has increased in size compared to prior study. Dedicated pelvicultrasound could be considered for further evaluation. THIS IS AN ELECTRONICALLY VERIFIED FINAL REPORT 08/10/2023 10:12 PM - Electronically signed by Lisa Matute M.D. AT: AT Report ID: [id number] Reading Location: [id number] Jamila [facility] IMG CT PROCEDURES Final Result * (ABNORMAL) Urinalysis, microscopic only (08/10/2023 6:52 PM HARDWOOD FLOOR INSTALLATION HELPER) WBC, ur 0-5 0 - 5 /HPF [facility] ([place]) RBC, ur 3-5(A) 0 - 2 /HPF [facility] ([place]) Epithelial cells, squamous, ur 6-10(A) 0 - 5 /HPF [facility] ([place]) Mucous, ur Present(A) [facility] ([place]) Hyaline casts, ur 1-5 0 - 10 /LPF [facility] ([place]) Culture Reflex Comment Reflex conditions for urine culture (WBC >10) not met. [facility] ([place]) Urine, clean voided 08/10/2023 6:52 PM HARDWOOD FLOOR INSTALLATION HELPER 08/10/2023 6:55 PM HARDWOOD FLOOR INSTALLATION HELPER Jamila Ramey MD LAB URINE ORDERABLES Sandra l Result [facility] ([place]) [facility] Department of Laboratories [place], [place] [id number] * (ABNORMAL) Urinalysis reflex to microscopic and culture Urine, clean voided (08/10/2023 6:52 PM HARDWOOD FLOOR INSTALLATION HELPER) Color, ur Yellow Yellow [facility] ([place]) Clarity, ur Turbid(A) Clear [facility] ([place]) Specific gravity, ur 1.034(H) 1.003 - 1.030 [facility] ([place]) pH, urine 6.0 [facility] ([place]) Comment: Interpretive Data ? Urine pH is affected by diet, medications, systemic acid-base disturbances, and renal tubular function. ??pH may affect urinary stone formation. ??For example, urine pH below 6.0 may help reduce the tendency for calcium phosphate stones and pH greater than 6.0 may reduce the tendency for uric acid stone formation. Source: [facility] Current Interpretive Data was last revised on 2017 Protein, ur ql 1+(A) Negative [facility] ([place]) Glucose, ur ql Negative Negative [facility] ([place]) Ketones, ur Negative Negative [facility] ([place]) Bilirubin, ur Negative Negative [facility] ([place]) Blood, ur 1+(A) Negative [facility] ([place]) Urobilinogen, ur <2.0 <2.0 mg/dL [facility] ([place]) Nitrite, ur Negative Negative [facility] ([place]) Leukocyte esterase, ur Negative Negative [facility] ([place]) UA reflex comment Reflex to microscopic UA will be performed. [facility] ([place]) Urine, clean voided 08/10/2023 6:52 PM [employer] 08/10/2023 6:55 PM [employer] us Jamila Ramey MD LAB MICROBIOLOGY - GENERA L ORDERABLES Final Result [facility] ([place] [address] [facility] Department [place] [address] documented in this encounter Visit Diagnoses Diagnosis Flank pain- Primary Abdominal pain, unspecified site documented in this encounter Administered Medications Inactive Administered Medications - up to 3 most recent administrations Medication Order MAR Action Action Date Dose Rate Site HYDROcodone-acetaminophen (NORCO) 5-325 mg per tablet 1 tablet 1 tablet, oral, Once, On 08/10/23 at 2134, For 1 dose, Indications: PainIndications:Pain Given 08/10/2023 9:48 PM [employer] 1 tablet ondansetron (ZOFRAN) injection 4 mg 4 mg, intravenous, Administer over 2 Minutes, Once, On 08/10/23 at 2134, For 1 dose Given 08/10/2023 9:48 PM [employer] 4 mg ondansetron ODT (ZOFRAN-ODT) disintegrating tablet 4 mg 4 mg, oral, Once, On 08/10/23 at 1842, For 1 dose Given 08/10/2023 6:43 PM [employer] 4 mg documented in this encounter Discontinued Medications Medication Sig Discontinue Reason Start Date End Da te ondansetron ODT (ZOFRAN-ODT) 4 mg disintegrating tablet Take 1 tablet (4 mg total) by mouth every 8 (eight) hours as needed for nausea or vomiting 04/10/2022 08/10/2023 HYDROcodone-acetaminophen (NORCO) 5-325 mg per tabletIndications:Pain Take 1 tablet by mouth every 8 (eight) hours as needed for pain for up to 8 doses 08/18/2022 08/10/2023 documented as of this encounter Active and Recently Administered Medications Times are shown in [employer]. Scheduled Medication Order 08/08/2023 08/09/2023 08/10/2023 HYDROcodone-acetaminophen (NORCO) 5-325 mg per tablet 1 tablet (COMPLETED) 1 tablet, oral, Once, On 08/10/23 at 2134, For 1 dose, Indications: Pain 2147 (Given - Provid er: Dunia Hennessy RN) ondansetron (ZOFRAN) injection 4 mg (COMPLETED) 4 mg, intravenous, Administer over 2 Minutes, Once, On 08/10/23 at 2134, For 1 dose 2147 (Given - Provid er: Dunia Hennessy RN) ondansetron ODT (ZOFRAN-ODT) disintegrating tablet 4 mg (COMPLETED) 4 mg, oral, Once, On 08/10/23 at 1842, For 1 dose 1843 (Given - Provid er: Celina Young RN) documented in this encounter Orders IV Count Last Ordered Date First Orde red Date SALINE LOCK IV 1 08/10/2023 documented in this encounter 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
--- OUTSIDE RECORDS SUMMARY | 2024-08-17 01:54 | XMS_ITS | Encounter Summary ---
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 Hand Name Role Phone Damian Sadler MD Primary Care Provider [phone] Reason for Visit * Reason Comments Groin Pain Encounter Details Date Type Department Care Team (Late st Contact Info) Description 04/10/2022 9:07 AM CDT - 04/10/2022 2:42 PM CDT Emergency [facility] Emergency Department [address] [place] [address] Damian Escalera, [address] [place] [address] Cyst of left ovary (Primary Dx); Duodenitis; Uncontrolled hypertension Discharge Disposition: Discharge to home or self care Social History Tobacco Use Types Packs/Day Years Used Date Smoking Tobacco: Every Day Cigarettes Smokeless Tobacco: Never Alcohol Use Standard Drinks/Week Comments No 0 (1 standard drink = 0.6 oz pur e alcohol) Comments No Sex and Gender Information Value Date Recorded Sex Assigned at Not on file Legal Sex Female 9:06 PM SURVEILLANCE AGENT Gender Identity Female 10/01/2023 8:44 AM SURVEILLANCE AGENT Sexual Orientation Straight 10/01/2023 8: 44 AM SURVEILLANCE AGENT documented as of this encounter Last Filed Vital Signs Vital Sign Reading Time Taken Comments Blood Pressure 177/116 04/10/2022 2:00 PM CDT Pulse 60 04/10/2022 2:00 PM CDT Temperature 37 ??C (98.6 ??F) 04/10/2022 7:54 AM CDT Respiratory Rate 18 04/10/2022 7:54 AM CDT Oxygen Saturation 98% 04/10/2022 2:00 PM CDT Inhaled Oxygen Concentration - - Weight 77.1 kg (170 lb) 04/10/2022 11:37 AM CDT Height 160 cm (5' 3 ) 04/10/2022 11:37 AM CDT Body Mass Index 30.11 04/10/2022 11:37 AM CDT documented in this encounter Discharge Instructions * Attachments The following attachments cannot be sent through Care Everywhere. * Hypertension, Established ([place]) * Duodenitis (AfterCare(R) Instructions(ER/ED)) ([place]) * Diet, [place] (Adult) ([place]) * Ovarian Cyst (AfterCare(R) Instructions(ER/ED)) ([place]) documented in this encounter Medications at Time of Discharge MULTIVIT-MINERALS/FE RROUS FUM (MULTI VITAMIN ORAL)Indications:hea lth Take 1 tablet by mouth division controller 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 omeprazole (PriLOSEC) 20 mg capsuleIndications:T reatment of Non-Bleeding Gastric Disorder Take 1 capsule (20 mg total) by mouth division controller 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 lisinopril-hydroCHLO ROthiazide (ZESTORETIC) 20-12.5 mg per tabletIndications:hy pertension Take 1 tablet by mouth 2 (two) times a day 3 ondansetron ODT (ZOFRAN-ODT) 4 mg disintegrating tablet Take 1 tablet (4 mg total) by mouth every 8 (eight) hours as needed for nausea or vomiting 20 tablet 04/10/2022 3 documented as of this encounter Ordered Prescriptions Prescription Sig Dispense Quantity Refills Last Filled Start Date End Date ondansetron ODT (ZOFRAN-ODT) 4 mg disintegrating tablet Take 1 tablet (4 mg total) by mouth every 8 (eight) hours as needed for nausea or vomiting 20 tablet 04/10/2022 3 documented in this encounter Discharge Disposition Disposition Code Departure Means Destination Discharge to home or self care documented in this encounter ED Notes * Sabas Vargas RN - 04/10/2022 10:44 AM CDT Bed: ED2-26 Expected date: Expected time: Means of arrival: Comments: Sabas Hernandez RN 04/10/22 1044 * Damian Escalera, DO - 04/10/2022 9:29 AM CDT HPI Chief Complaint Patient presents with Groin Pain HPI 42-year-old female with a past medical history of hypertension, migraine and previous right ovariantorsion status post oophorectomy that presents to the emergency department complaining of sudden onset left pelvic pain that started this morning around 6:00 a.m. while she was in the shower. The pain is associated with nausea. She states the pain feels very similar to her previous torsion on the right. She went to bed and woke up feeling well. No treatment prior to arrival. Denies associated fevers, chills, diarrhea, previous abdominal pain, vomiting and dysuria. Denies , history of hysterectomy. Patient History: Past Medical History: Diagnosis Date Hypertension Migraine Past Surgical History: Procedure Laterality Date SECTION HYSTERECTOMY KIDNEY SURGERY Family History Problem Relation Age of Onset Diabetes Neg Hx Social History Tobacco Use Smoking status: Every Day Packs/day: 0.50 Types: Cigarettes Smokeless tobacco: Never Substance and Sexual Activity Drug use: No Sexual activity: Yes Partners: Male control/protection: Hysterectomy Alcohol Use: Not on file Review of Systems Review of Systems Constitutional: Negative for chills and fever. HENT: Negative for congestion and rhinorrhea. Eyes: Negative for visual disturbance. Respiratory: Negative for cough. Cardiovascular: Negative for chest pain. Gastrointestinal: Positive for abdominal pain (Left lower) and nausea. Negative for vomiting. Genitourinary: Positive for pelvic pain (Left lower). Negative for dysuria. Musculoskeletal: Negative for back pain. Skin: Negative for rash. Neurological: Negative for headaches. Hematological: Does not bruise/bleed easily. Physical Exam ED Triage Vitals Temp Pulse Resp BP SpO2 04/10/22 0754 04/10/22 0754 04/10/22 0754 04/10/22 0754 04/10/22 0754 37 ??C (98.6 ??F) 79 18 (!) 208/137 98 % Temp src Heart Rate Source Patient Position BP Location FiO2 (%) 04/10/22 0754 -- -- -- -- Skin Height Height Method Weight Weight Method 04/10/22 1137 -- 04/10/22 1137 -- 1.6 m (5' 3 ) 77.1 kg (170 lb) Physical Exam Vitals and nursing note reviewed. Constitutional: General: She is in acute distress (Appears uncomfortable and in pain). HENT: Head: Normocephalic and atraumatic. Right Ear: External ear normal. Left Ear: External ear normal. Nose: Nose normal. Mouth/Throat: Mouth: Mucous membranes are moist. Eyes: Pupils: Pupils are equal, round, and reactive to light. Cardiovascular: Rate and Rhythm: Normal rate and regular rhythm. Pulmonary: Effort: Pulmonary effort is normal. Breath sounds: Normal breath sounds. Abdominal: General: Abdomen is flat. Palpations: Abdomen is soft. Tenderness: There is abdominal tenderness (Left lower quadrant/left pelvis, percussion tenderness).There is guarding (Mild, involuntary). Musculoskeletal: General: No deformity. Normal range of motion. Cervical back: Normal range of motion and neck supple. Skin: General: Skin is warm. Capillary Refill: Capillary refill takes less than 2 seconds. Neurological: General: No focal deficit present. Mental Status: She is alert and oriented to person, place, and time. Motor: No weakness. Coordination: Coordination normal. Gait: Gait abnormal (mild atalgic gait but otherwise normal). Psychiatric: Mood and Affect: Mood normal. Procedures O2 SATURATION INTERPRETATION Date: 04/10/2022 Time: 2:29 PM Performed by Damian Escalera DO Sa02: SpO2 Readings from Last 1 Encounters: 04/10/22 98% Oxygen: Room Air Interpretation: Normal MDM Labs Reviewed CBC WITH AUTO DIFFERENTIAL - Abnormal Result Value WBC 8.6 Hgb 16.2 (*) Hct 46.3 (*) Plt 304 MPV 9.7 RBC 5.34 (*) MCV 86.7 MCH 30.3 MCHC 35.0 RDW CV 11.9 RDW SD 37.8 NRBC abs 0.00 APTT - Abnormal aPTT 23 (*) COMPREHENSIVE METABOLIC PANEL - Abnormal Sodium 137 Potassium, pl 4.0 Chloride 101 CO2 26 Anion gap 10 BUN 8 Creatinine 0.69 Glucose 85 Calcium 9.7 Bilirubin, total 0.3 Protein, pl 8.1 Albumin 4.8 Alk phos 92 ALT 48 (*) AST 35 SEPSIS LACTATE WITH REFLEX - Abnormal Sepsis Lactate 2.2 (*) URINALYSIS AND REFLEX TO MICROSCOPIC AND CULTURE Color, ur Straw Clarity, ur Clear Specific gravity, ur 1.014 pH, urine 6.0 Protein, ur ql Negative [...] for uric acid stone formation. Source: [facility] [employer].Last revised 08-22-2017 COVID-19 CORONAVIRUS RNA COVID-19 RNA Negative Narrative: Is the patient experiencing any symptoms consistent with COVID (eg. Fever, cough, shortness of breath)?->No What is the reason for testing?->Placement in post-acute care setting (Rapid) Interpretive data: Synonyms for this test include: PCR and NAAT . This test is performed using the [employer] Xpert Xpress plus assay. This is a real-time RT-PCR test intended for the qualitative detection of nucleic acid from the SARS-CoV-2. This assay has been reviewed by the FDA for Emergency Use Authorization (EUA). The performance characteristics have been verified by the performing laboratory. Results must be considered in the clinical context and a negative result does not rule out infection. Interpretive data last revised January 10, 2022. Interpretive data: Synonyms for this test include: PCR and NAAT . This test is performed using the [employer] Xpert Xpress plus assay. This is a real-time RT-PCR test intended for the qualitative detection of nucleic acid from the SARS-CoV-2. This assay has been reviewed by the FDA for Emergency Use Authorization (EUA). The performance characteristics have been verified by the performing laboratory. Results must be considered in the clinical context and a negative result does not rule out infection. Interpretive data last revised January 10, 2022. PROTIME-INR PT 11.8 INR 1.1 TYPE AND SCREEN Jorge, indirect Negative ABO Rh B Positive Narrative: Has the patient had Daratumumab or Isatuximab in the past 6 months?->Unknown DIFFERENTIAL AUTO Neutrophil abs 5.6 Imm gran abs 0.0 Lymphocyte abs 2.4 Monocyte abs 0.5 Eosinophil abs 0.1 Basophil abs 0.0 Neutrophil pct 64.6 Imm gran pct 0.2 Lymphocyte pct 27.5 Monocyte pct 6.3 Eosinophil pct 0.9 Basophil pct 0.5 EGFR eGFR >90 SEPSIS [address] WITH REFLEX [address] Abdomen Pelvis W Contrast Final Result Possible mild duodenitis. Otherwise no acute process in the abdomen or pelvis. Electronically signed by: Piedad Galo M.D. US Transvaginal Final Result 1. No evidence of left ovarian torsion. 2. Given patient's history of ureteral stones and stent, limited sonogram of the left kidney was performed and demonstrates no hydronephrosis. Dictated by: Eva Meier M.D. The radiology attending physician has personally reviewed this study, and had reviewed and/or edited this written report and agrees with it. Electronically signed by: Shankar De M.D. BP (!) 177/116 Pulse 60 Temp 37 ??C (98.6 ??F) (Skin) Resp 18 Ht 160 cm (5' 3 ) Wt 77.1 kg (170 lb) SpO2 98% BMI 30.11 kg/m?? [facility] ED Course as of 04/10/22 1429 Time: 04/10 1100 Value: US Transvaginal Comment: FINDINGS: Uterus: The uterus is surgically absent. Right ovary: The right ovary is surgically absent. Left ovary: The left ovary measures 4.3 cm x 4.0 cm x 2.8 cm. There are multiple left ovarian cysts, the largest measuring 2.9 cm x 2.8 cm x 2.3 cm. There is arterial flow to the left ovary. Other: No abnormal masses or fluid collections are visualized in either adnexal region. Limited view of the left kidney demonstrates no hydronephrosis. IMPRESSION: 1. No evidence of left ovarian torsion. 2. Given patient's history of ureteral stones and stent, limited sonogram of the left kidney was performed and demonstrates no hydronephrosis. Dictated by: Eva Meier M.D. By: Damian Escalera DO Time: 04/10 1427 Comment: 42-year-old female, nontoxic, non-ill appearing and afebrile however she does appear in pain presents to the emergency department complaining of sudden onset left lower quadrant pelvic pain.She stated it felt like previous right-sided torsion. Pelvic ultrasound did not show torsion, good arterial flow to ovaries. Left ovarian cysts were seen without free fluid. Abdomen pelvis CT was performed that did not show any significant pathology in the left lower quadrant but did show possible duodenitis. Discussed findings with patient. Made plans for bland diet and to increase diet slowly. Also discussed that pain may be related to ovarian cysts. Pain much improved after multiple analgesics. Instructed to follow up with primary care physician within 1 week for re- evaluation and to take NSAIDs as tolerated for the left lower quadrant pain. Anticipatory guidance and strict return precautions provided. Patient agreeable with plan. By: Damian Escalera DO Impression: Final diagnoses: Cyst of left ovary Duodenitis Uncontrolled hypertension Damian Escalera DO 04/10/22 1429 * Jeana Shaikh RN - 04/10/2022 9:07 AM CDT Bed: ED2-26 Expected date: Expected time: Means of arrival: Car Comments: Jeana Shaikh RN 04/10/22 0907 * Natalie Sarabia RN - 04/10/2022 7:51 AM CDT Pt to ED with L sided groin pain. States she only had L ovary left and was diagnosed with ovarian cysts on the L ovary, R ovary was removed in 2019 due to cysts as well. Pt is A/O x4, PMH of HTN. documented in this encounter Plan of Treatment Not on file documented as of this encounter Procedures Procedure Name Priority Date/Time Associated Diagnosis Comments CT ABDOMEN PELVIS W CONTRAST ED 04/10/2022 11:51 AM CDT US TRANSVAGINAL Critical/Life-T hreatening 04/10/2022 10:31 AM CDT URINALYSIS AND REFLEX TO MICROSCOPIC AND CULTURE STAT 04/10/2022 9:46 AM CDT HC ANTIBODY SCREEN RBC STAT 04/10/2022 9:46 AM CDT COVID-19 CORONAVIRUS RNA Routine 04/10/2022 9:44 AM CDT SEPSIS LACTATE WITH REFLEX STAT 04/10/2022 9:44 AM CDT EGFR STAT 04/10/2022 9:44 AM CDT DIFFERENTIAL AUTO STAT 04/10/2022 9:4 4 AM CDT CBC WITH AUTO DIFFERENTIAL STAT 04/10/2022 9:44 AM CDT APTT STAT 04/10/2022 9:44 AM CDT PROTIME-INR STAT 04/10/2022 9:44 AM CDT COMPREHENSIVE METABOLIC PANEL STAT 04/10/2022 9:44 AM CDT documented in this encounter Results * CT Abdomen Pelvis W Contrast (04/10/2022 11:51 AM CDT) Anatomical Region Laterality Modality Body N/A Computed Tomogra phy 04/10/2022 12:5 3 PM CDT Impressions 04/10/2022 12:53 PM CDT Possible mild duodenitis. Otherwise no acute process in the abdomen or pelvis. Electronically signed by: Piedad Galo M.D. Narrative 04/10/2022 12:53 PM CDT EXAMINATION: ??Computed tomography of the abdomen and pelvis with intravenous contrast HISTORY: Abdominal pain in the left lower quadrant, concerning for infection kidney stone TECHNIQUE: ??Transaxial computed tomographic images of the abdomen and pelvis were obtained with intravenous contrast according to the standard protocol after the uneventful administration of 100 mL Opti-Ray 350 intravenous contrast. COMPARISON: CT abdomen pelvis from on 01/23/2022 FINDINGS: Images through the lower chest demonstrate mild bibasilar atelectasis. There is diffuse hepatic steatosis with areas of focal sparing around the gallbladder and liver hilum. Spleen, adrenal glands, and pancreas are normal. No contour deforming renal masses or hydronephrosis. No hyperdense kidney stones within limits of contrast enhanced study. No hyperdense gallstones or biliary dilation. There is apparent hyperenhancement of the duodenal mucosa. There is colonic diverticulosis. Stomach and bowel are otherwise unremarkable. No free fluid or enlarged lymph nodes are seen in the abnormal pelvis. Physiologic follicles are noted in the left ovary. Status post hysterectomy. Bladder is unremarkable. Abdominal aorta is of normal caliber with mild atherosclerotic calcifications. Portal veins are patent. No aggressive bone lesions. Procedure Note Piedad Galo MD - 04/10/2022 EXAMINATION: Computed tomography of the abdomen and pelvis with intravenous contrast HISTORY: Abdominal pain in the left lower quadrant, concerning for infection kidney stone TECHNIQUE: Transaxial computed tomographic images of the abdomen and pelvis were obtained with intravenous contrast according to the standard protocol after the uneventful administration of 100 mL Opti-Ray 350 intravenous contrast. COMPARISON: CT abdomen pelvis from on 01/23/2022 FINDINGS: Images through the lower chest demonstrate mild bibasilar atelectasis. There is diffuse hepatic steatosis with areas of focal sparing around the gallbladder and liver hilum. Spleen, adrenal glands, and pancreas are normal. No contour deforming renal masses or hydronephrosis. No hyperdense kidney stones within limits of contrast enhanced study. No hyperdense gallstones or biliary dilation. There is apparent hyperenhancement of the duodenal mucosa. There is colonic diverticulosis. Stomach and bowel are otherwise unremarkable. No free fluid or enlarged lymph nodes are seen in the abnormal pelvis. Physiologic follicles are noted in the left ovary. Status post hysterectomy. Bladder is unremarkable. Abdominal aorta is of normal caliber with mild atherosclerotic calcifications. Portal veins are patent. No aggressive bone lesions. IMPRESSION: Possible mild duodenitis. Otherwise no acute process in the abdomen or pelvis. Electronically signed by: Piedad Galo M.D. Damian Escalera DO IMG CT PROCEDURES Final Result * US Transvaginal (04/10/2022 10:31 AM CDT) Anatomical Region Laterality Modality Pelvis N/A Ultrasound 04/10/2022 10:4 7 AM CDT Impressions 04/10/2022 12:39 PM CDT 1. ??No evidence of left ovarian torsion. 2. ??Given patient's history of ureteral stones and stent, limited sonogram of the left kidney was performed and demonstrates no hydronephrosis. Dictated by: Eva Meier M.D. The radiology attending physician has personally reviewed this study, and had reviewed and/or edited this written report and agrees with it. Electronically signed by: Shankar De M.D. Narrative 04/10/2022 12:39 PM CDT EXAMINATION: TRANSVAGINAL PELVIC SONOGRAM HISTORY: ??42-year-old woman with sudden onset left pelvic pain. Patient has history of prior right ovarian torsion status post right oophorectomy and hysterectomy. Additional history includes ureteral stent for ureterolithiasis. COMPARISON: ??CT abdomen pelvis 01/23/2022. FINDINGS: Uterus: The uterus is surgically absent. Right ovary: The right ovary is surgically absent. Left ovary: The left ovary measures ??4.3 cm x 4.0 cm x 2.8 cm. There are multiple left ovarian cysts, the largest measuring 2.9 cm x 2.8 cm x 2.3 cm. ??There is arterial flow to the left ovary. Other: No abnormal masses or fluid collections are visualized in either adnexal region. ??Limited view of the left kidney demonstrates no hydronephrosis. Procedure Note Shankar De MD - 04/10/2022 EXAMINATION: TRANSVAGINAL PELVIC SONOGRAM HISTORY: 42-year-old woman with sudden onset left pelvic pain. Patient has history of prior right ovarian torsion status post right oophorectomy and hysterectomy. Additional history includes ureteral stent for ureterolithiasis. COMPARISON: CT abdomen pelvis 01/23/2022. FINDINGS: Uterus: The uterus is surgically absent. Right ovary: The right ovary is surgically absent. Left ovary: The left ovary measures 4.3 cm x 4.0 cm x 2.8 cm. There are multiple left ovarian cysts, the largest measuring 2.9 cm x 2.8 cm x 2.3 cm. There is arterial flow to the left ovary. Other: No abnormal masses or fluid collections are visualized in either adnexal region. Limited view of the left kidney demonstrates no hydronephrosis. IMPRESSION: 1. No evidence of left ovarian torsion. 2. Given patient's history of ureteral stones and stent, limited sonogram of the left kidney was performed and demonstrates no hydronephrosis. Dictated by: Eva Meier M.D. The radiology attending physician has personally reviewed this study, and had reviewed and/or edited this written report and agrees with it. Electronically signed by: Shankar De M.D. Damian Escalera DO IMG US PROCEDURES Final Result * Type and screen (04/10/2022 9:46 AM CDT) Jorge, indirect Negative CHARLEEN SINGH ABO Rh B Positive CHARLEEN SINGH Blood 04/10/2022 9:46 AM CDT 04/10/2022 10:05 AM CDT Narrative CHARLEEN SINGH - 04/10/2022 11:07 AM CDT Has the patient had Daratumumab or Isatuximab in the past 6 months?->Unknown Damian Escalera DO LAB BLOOD BANK TEST ORD ERABLES Final Result CHARLEEN SINGH [facility] Department [place] [address] * Urinalysis reflex to microscopic and culture Urine (04/10/2022 9:46 AM CDT) Pathologist [facility] [place] Color, ur Straw Yellow [facility] Clarity, ur Clear Clear [facility] Specific gravity, ur 1.014 1.003 - 1.030 [facility] pH, urine 6.0 [facility] Protein, ur ql Negative Negative [facility] Glucose, ur ql Negative Negative [facility] Ketones, ur Negative Negative [facility] Bilirubin, ur Negative Negative [facility] Blood, ur Negative Negative [facility] Urobilinogen, ur <2.0 <2.0 mg/dL [facility] Nitrite, ur Negative Negative [facility] Leukocyte esterase, ur Negative Negative [facility] UA reflex comment Reflex conditions for microscopic UA and culture not met. [facility] Urine 04/10/2022 9:46 AM CDT 04/10/2022 9:58 AM CDT Narrative [facility] - 04/10/2022 10:09 AM CDT ?? Urine pH is affected by diet, medications, systemic acid-base disturbances, and renal tubular function. ??pH may affect urinary stone formation. ??For example, urine pH below 6.0 may help reduce the tendency for calcium phosphate stones and pH greater than 6.0 may reduce the tendency for uric acid stone formation. Source: [facility] [employer]. Last revised 08-22-2017 us Damian Escalera DO LAB MICROBIOLOGY - GENE RAL ORDERABLES Final Result CHARLEEN SINGH [facility] Department [place] [address] * eGFR (04/10/2022 9:44 AM CDT) Pathologist [facility] [place] eGFR >90 90 - 130 mL/min/1. 73 m2 [facility] Comment: Interpretive Data Reference Interval Normal ?>/= [...] interpretive data was last reviewed 2021. Blood 04/10/2022 9:44 AM CDT 04/10/2022 9:49 AM CDT us Damian Escalera DO LAB BLOOD ORDERABLES Fi nal Result Performing Organization Address City/State/[facility] Co de Phone Number [facility] Department [place] [address] * Differential, auto (04/10/2022 9:44 AM CDT) Neutrophil abs 5.6 1.7 - 6.5 K/cumm [facility] Imm gran abs 0.0 0.0 - 0.1 K/cumm [facility] Lymphocyte abs 2.4 0.8 - 3.3 K/cumm [facility] Monocyte abs 0.5 0.2 - 0.8 K/cumm [facility] Eosinophil abs 0.1 0.0 - 0.5 K/cumm [facility] Basophil abs 0.0 0.0 - 0.1 K/cumm [facility] Neutrophil pct 64.6 % [facility] Comment: Interpretive Data Percent cell count reference ranges are not reported, since discordance with absolute values may lead to misinterpretation of CBC data. Current Interpretive Data was last revised on 2017. Imm gran pct 0.2 % [facility] Comment: Interpretive Data Percent cell count reference ranges are not reported, since discordance with absolute values may lead to misinterpretation of CBC data. Current Interpretive Data was last revised on 2017. Lymphocyte pct 27.5 % [facility] Comment: Interpretive Data Percent cell count reference ranges are not reported, since discordance with absolute values may lead to misinterpretation of CBC data. Current Interpretive Data was last revised on 2017. Monocyte pct 6.3 % [facility] Comment: Interpretive Data Percent cell count reference ranges are not reported, since discordance with absolute values may lead to misinterpretation of CBC data. Current Interpretive Data was last revised on 2017. Eosinophil pct 0.9 % [facility] Comment: Interpretive Data Percent cell count reference ranges are not reported, since discordance with absolute values may lead to misinterpretation of CBC data. Current Interpretive Data was last revised on 2017. Basophil pct 0.5 % [facility] Comment: Interpretive Data Percent cell count reference ranges are not reported, since discordance with absolute values may lead to misinterpretation of CBC data. Current Interpretive Data was last revised on 2017. Blood 04/10/2022 9:44 AM CDT 04/10/2022 9:49 AM CDT Damian Escalera DO LAB BLOOD ORDERABLES Fi nal Result [facility] Department [place] [address] * COVID-19 Coronavirus RNA Nasopharyngeal (04/10/2022 9:44 AM CDT) COVID-19 RNA Negative Negative [facility] Nasopharyngeal 04/10/2022 9: 44 AM CDT 04/10/2022 9:58 AM CDT Narrative [facility] - 04/10/2022 10:57 AM CDT Is the patient experiencing any symptoms consistent with COVID (eg. Fever, cough, shortness of breath)?->No What is the reason for testing?->Placement in post-acute care setting??(Rapid) ??Interpretive data: Synonyms for this test include: PCR and NAAT . ??This test is performed using the [employer] Xpert Xpress plus assay. This is a real-time RT-PCR test intended for the qualitative detection of nucleic acid from the SARS-CoV-2. This assay has been reviewed by the FDA for Emergency Use Authorization (EUA). The performance characteristics have been verified by the performing laboratory. Results must be considered in the clinical context and a negative result does not rule out infection. Interpretive data last revised January 10, 2022. ??Interpretive data: Synonyms for this test include: PCR and NAAT . ??This test is performed using the [employer] Xpert Xpress plus assay. This is a real-time RT-PCR test intended for the qualitative detection of nucleic acid from the SARS-CoV-2. This assay has been reviewed by the FDA for Emergency Use Authorization (EUA). The performance characteristics have been verified by the performing laboratory. Results must be considered in the clinical context and a negative result does not rule out infection. Interpretive data last revised January 10, 2022. Damian Escalera DO LAB MICROBIOLOGY - GENE RAL ORDERABLES Final Result Performing Organization Address City/State/[facility] Co de Phone Number [facility] Department [place] [address] * (ABNORMAL) Sepsis Lactate w/ Reflex (04/10/2022 9:44 AM CDT) Sepsis Lactate 2.2(H) 0.7 - 2.0 mmol/L [facility] Blood 04/10/2022 9:44 AM CDT 04/10/2022 9:52 AM CDT Damian Escalera DO LAB BLOOD ORDERABLES Fi nal Result [facility] Department [place] [address] * (ABNORMAL) Comprehensive metabolic panel (04/10/2022 9:44 AM CDT) Sodium 137 135 - 145 mmol/L [facility] Potassium, pl 4.0 3.3 - 4.9 mmol/L [facility] Chloride 101 97 - 110 mmol/L [facility] CO2 26 22 - 32 mmol/L [facility] Anion gap 10 2 - 15 mmol/L [facility] BUN 8 8 - 25 mg/dL [facility] Creatinine 0.69 0.60 - 1.10 mg/dL [facility] Glucose 85 70 - 199 mg/dL [facility] Comment: Interpretive Data Fasting glucose >/= 126 [...] 2017. Calcium 9.7 8.5 - 10.3 mg/dL [facility] Bilirubin, total 0.3 0.1 - 1.2 mg/dL [facility] Protein, pl 8.1 6.5 - 8.5 g/dL [facility] Albumin 4.8 3.5 - 5.0 g/dL [facility] Alk phos 92 40 - 130 Units/L [facility] ALT 48(H) 7 - 45 Units/L [facility] AST 35 10 - 45 Units/L [facility] Blood 04/10/2022 9:44 AM CDT 04/10/2022 9:49 AM CDT us Damian Escalera DO LAB BLOOD ORDERABLES Fi nal Result [facility] [place] [address] * (ABNORMAL) aPTT (04/10/2022 9:44 AM CDT) aPTT 23(L) 27 - 37 sec [facility] Comment: Interpretive Data Therapeutic heparin range: 60.0 - 94.0 seconds. Based on correlation with therapeutic heparin activity range of 0.3-0.7 Units/mL. Current interpretive data was last revised on 2020. Blood 04/10/2022 9:44 AM CDT 04/10/2022 9:53 AM CDT Damian King [facility] LAB BLOOD ORDERABLES Fi nal Result Performing Organization Address [facility] [place] [address] * Protime-INR (04/10/2022 9:44 AM CDT) PT 11.8 9.2 - 13.5 sec [facility] INR 1.1 0.9 - 1.2 [facility] Comment: Interpretive data Oral anticoagulant therapeutic ranges: Venous thromboembolism prophylaxis or treatment: 2.0-3.0 CARDIOLOGY Standard range: 2.0-3.0 High-intensity range: 2.5-3.5 Refer to indication-specific guidelines for appropriate target ranges for prosthetic heart valve replacement. Current interpretive data was last revised on 2019. Blood 04/10/2022 9:44 AM CDT 04/10/2022 9:53 AM CDT Damian Malik [facility] LAB BLOOD ORDERABLES Fi nal Result Performing Organization Address [facility] de Phone Number [facility] [place] [address] * (ABNORMAL) CBC with auto differential (04/10/2022 9:44 AM CDT) WBC 8.6 3.8 - 9.9 K/cumm [facility] Hgb 16.2(H) 11.9 - 15.5 g/dL [facility] Hct 46.3(H) 35.6 - 45.5 % [facility] Plt 304 150 - 400 K/cumm [facility] MPV 9.7 9.1 - 12.3 fL [facility] RBC 5.34(H) 3.90 - 5.20 M/cumm [facility] MCV 86.7 81.3 - 96.4 fL [facility] MCH 30.3 27.1 - 33.3 pg [facility] MCHC 35.0 32.3 - 35.7 g/dL [facility] RDW CV 11.9 11.1 - 14.9 % [facility] RDW SD 37.8 35.7 - 48.1 fL [facility] NRBC abs 0.00 0.00 - 0.01 K/cumm [facility] Blood (Blood, Venous) 04/10/2022 9:44 AM CDT 04/10/2022 9:49 AM CDT Damian Escalera DO LAB BLOOD ORDERABLES nal Result [facility] Department [place] [address] documented in this encounter Visit Diagnoses Diagnosis Cyst of left ovary- Primary Other and unspecified ovarian cyst Duodenitis Uncontrolled hypertension documented in this encounter Administered Medications Inactive Administered Medications - up to 3 most recent administrations Medication Order MAR Action Action Date Dose Rate Site fentaNYL (SUBLIMAZE) preservative free injection 50 mcg 50 mcg, intravenous, Once, On Sat04/10/22 at 0929, For 1 dose Given 04/10/2022 9:49 AM CDT 50 mcg ioversoL (OPTIRAY 350) syringe 125 mL 125 mL, intravenous, Once in imaging, contrast, Starting on Sat04/10/22 at 1151, For 1 dose Contrast Given 04/10/2022 11:51 AM CDT 100 mL morphine injection 4 mg 4 mg, intravenous, Administer over 4 Minutes, Once, On 04/10/22 at 1126, For 1 dose Given 04/10/2022 11:36 AM CDT 4 mg ondansetron (ZOFRAN) injection 4 mg 4 mg, intravenous, Administer over 2 Minutes, Once, On e 04/10/22 at 0929, For 1 dose Given 04/10/2022 9:49 AM CDT 4 mg sodium chloride 0.9% bolus 1,000 mL 1,000 mL, intravenous, Once, On Sat04/10/22 at 0929, For 1 dose New Bag 04/10/2022 11:57 AM CDT 1,000 mL documented in this encounter Active and Recently Administered Medications Times are shown in CDT. Scheduled Medication Order 04/08/2022 04/09/2022 04/10/2022 fentaNYL (SUBLIMAZE) preservative free injection 50 mcg (COMPLETED) 50 mcg, intravenous, Once, On e 04/10/22 at 0929, For 1 dose 0949 (Given - Provid er: Jamila Dixon RN) morphine injection 4 mg (COMPLETED) 4 mg, intravenous, Administer over 4 Minutes, Once, On e 04/10/22 at 1126, For 1 dose 1136 (Given - Provid er: Jamila Dixon RN) ondansetron (ZOFRAN) injection 4 mg (COMPLETED) 4 mg, intravenous, Administer over 2 Minutes, Once, On e 04/10/22 at 0929, For 1 dose 0949 (Given - Provid er: Jamila Dixon RN) sodium chloride 0.9% bolus 1,000 mL (COMPLETED) 1,000 mL, intravenous, Once, On e 04/10/22 at 0929, For 1 dose 1157 (New Bag - Prov ider: Jamila Dixon RN)[id number] (Stopped - Provider: Jamila Dixon RN) PRN Medication Order 04/08/2022 04/09/2022 04/10/2022 ioversoL (OPTIRAY 350) syringe 125 mL (COMPLETED) 125 mL, intravenous, Once in imaging, contrast, Starting on e 04/10/22 at 1151, For 1 dose 1151 (Contrast Given - Provider: Jose R Duncan) documented in this encounter Care Teams Flatwork Finisher Hand Relationship Specialty Start Date End Date Damian Sadler MD PCP - General 11/29/16 05/18/22 documented as of this encounter
--- OUTSIDE RECORDS SUMMARY | 2024-08-17 01:54 | XMS_ITS | Encounter Summary ---
Author Organization [facility] Address [address] [place] [address] Phone Care Team Providers Care Caramel Candy Maker Name Role Phone Miscellaneous, Not In File Primary Care Provider Unavailable Reason for Visit * Reason Onset Date Comments office referral 05/28/2022 Encounter Details Date Type Department Care Team (Late st Contact Info) Description 05/28/2022 Telephone [facility] Department of Surgery, Section of Colon and Rectal Surgery [address] [address], [place] [address] Naomi Stauffer CMA office referral Social History Tobacco Use Types Packs/Day Years Used Date Smoking Tobacco: Every Day Cigarettes Smokeless Tobacco: Never Alcohol Use Standard Drinks/Week Comments No 0 (1 standard drink = 0.6 oz pur e alcohol) Comments No Sex and Gender Information Value Date Recorded Sex Assigned at Not on file Legal Sex Female 9:06 PM DIRECTOR OF COMPLIANCE Gender Identity Female 10/01/2023 8:44 AM DIRECTOR OF COMPLIANCE Sexual Orientation Straight 10/01/2023 8: 44 AM DIRECTOR OF COMPLIANCE documented as of this encounter Miscellaneous Notes * Telephone Encounter - Naomi Stauffer CMA - 05/28/2022 2:30 PM CDT Left a voicemail for a return call. Referral in que/chart/OnBase and deferred for 2 days. documented in this encounter Plan of Treatment Not on file documented as of this encounter Visit Diagnoses Not on filedocumented in this encounter Care Teams Caramel Candy Maker Relationship Specialty Start Date End Date Miscellaneous, Not In File PCP - General 05/19/2208/14/ 3 documented as of this encounter
--- OUTSIDE RECORDS SUMMARY | 2024-08-17 01:54 | XMS_ITS | Encounter Summary ---
Author Organization [facility] Healthcare Address [address] [place] [address] Care Team Providers Care Supervisor Central Supply Name Role Phone Lucas Carter DO Primary Care Provider [phone] Reason for Visit * Reason Comments Flank Pain Back Pain Encounter Details Date Type Department Care Team (Late st Contact Info) Description 12/24/2022 5:36 PM CDT - 12/25/2022 1:20 AM CDT Emergency [address] [address] Discharge Disposition: Left Against Medical Advice Social History Tobacco Use Types Packs/Day Years Used Date Smoking Tobacco: Every Day Cigarettes Smokeless Tobacco: Never Alcohol Use Standard Drinks/Week Comments No 0 (1 standard drink = 0.6 oz pur e alcohol) Comments No Sex and Gender Information Value Date Recorded Sex Assigned at Not on file Legal Sex Female 9:06 PM CRAP SHOOTER Gender Identity Female 10/01/2023 8:44 AM CRAP SHOOTER Sexual Orientation Straight 10/01/2023 8: 44 AM CRAP SHOOTER documented as of this encounter Last Filed Vital Signs Vital Sign Reading Time Taken Comments Blood Pressure 187/133 12/24/2022 11:06 PM CDT Pulse 87 12/24/2022 11:06 PM CDT Temperature 36.8 ??C (98.3 ??F) 12/24/2022 5:37 PM CD T Respiratory Rate 18 12/24/2022 11:06 PM CDT Oxygen Saturation 97% 12/24/2022 11:06 PM CDT Inhaled Oxygen Concentration - - Weight 81.6 kg (180 lb) 12/24/2022 5:37 PM CDT Height 160 cm (5' 3 ) 12/24/2022 5:37 PM CDT Body Mass Index 31.89 12/24/2022 5:37 PM CDT documented in this encounter Medications at Time of Discharge MULTIVIT-MINERALS/F ERROUS FUM (MULTI VITAMIN ORAL)Indications:he alth Take 1 tablet by mouth lot boss 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 omeprazole (PriLOSEC) 20 mg capsuleIndications: Treatment of Non-Bleeding Gastric Disorder Take 1 capsule (20 mg total) by mouth lot boss 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 amLODIPine (NORVASC) 10 mg tablet [...] Discharge Disposition Disposition Code Departure Means Destination Left Against Medical Advice documented in this encounter ED Notes * Blanquita Vicente RN - 12/24/2022 6:15 PM CDT Pt presents to ED for lower back pain that radiates to bilateral sides of abdomen x 1 day Endorses: bilateral flank pain, lower back pain, nausea, urge to pee Denies: diarrhea, abdominal pain, cp/sob, fevers/chills RR even/nl. NAD. AAOX4. Ambulatory with steady gait to triage. PMHx: kidney stones, HTN documented in this encounter Plan of Treatment Not on file documented as of this encounter Procedures Procedure Name Priority Date/Time Associated Diagnosis Comments CT ABDOMEN PELVIS WO CONTRAST ED 12/24/2022 6:41 PM CDT EGFR STAT 12/24/2022 6:26 PM CDT DIFFERENTIAL AUTO STAT 12/24/2022 6:2 6 PM CDT URINALYSIS AND REFLEX TO MICROSCOPIC AND CULTURE STAT 12/24/2022 6:26 PM CDT CBC WITH AUTO DIFFERENTIAL STAT 12/24/2022 6:26 PM CDT LIPASE STAT 12/24/2022 6:26 PM CDT COMPREHENSIVE METABOLIC PANEL STAT 12/24/2022 6:26 PM CDT documented in this encounter Results * CT Abdomen Pelvis WO Contrast (12/24/2022 6:41 PM CDT) Anatomical Region Laterality Modality Body N/A Computed Tomogra phy 12/24/2022 6:52 PM CDT Narrative 12/24/2022 6:58 PM CDT EXAM DESCRIPTION: ?? CT ABDOMEN PELVIS WO CONTRAST REASON FOR STUDY: ?? Flank pain, kidney stone suspected, bilateral flank pain ?? Pt presents to ED for lower back pain that radiates to bilateral sides of abdomen x 1 day, hx of Hysterectomy ?? TECHNIQUE: CT scan of the abdomen and pelvis performed without intravenous and ??without ??oral contrast using helical scanning technique. Reconstructed coronal and sagittal MPR images reviewed. All images stored on PACS. ?? Automated exposure control was used as a dose optimization technique for this examination. COMPARISON: ?? 11/07/2022 REFERENCE: Per ACR white paper recommendations, [...] atelectasis and slight right middle lobe scarring. ??No pleural effusion. ??Imaged portions of the heart are normal. LIVER: ?? Mild hepatomegaly. ??Mild diffuse hepatic steatosis with focal fatty sparing adjacent to the gallbladder fossa. ??No identified cystic or solid masses. GALLBLADDER: ?? Decompressed but normal. BILE DUCTS: ?? No intrahepatic or extrahepatic ductal dilatation. SPLEEN: ?? Normal size. ??No focal lesions. PANCREAS: ?? No identified cystic or solid masses. ??No significant calcifications. No adjacent inflammation or peripancreatic fluid collections. Pancreatic duct not dilated. ADRENALS: ?? Normal. KIDNEYS/URINARY TRACT: ?? No identified significant cystic or solid masses. ?? There is a nonobstructive 2 mm calculus in the interpolar [...] a left ovarian hypoattenuating lesion measuring approximately 3 cm which has not substantially changed compared to prior study. VASCULATURE: ?? No abdominal aortic aneurysm. MUSCULOSKELETAL: ?? No acute fractures or aggressive osseous lesions. IMPRESSION: 1. ??Nonobstructive 2 mm calculus in the interpolar region of the left kidney.. ??No hydronephrosis or hydroureter. 2. ??Sigmoid colonic diverticulosis. ??No CT evidence of acute diverticulitis. ?? Normal appendix. 3. Left ovarian hypoattenuating lesion measuring approximately 3 cm which has not substantially changed compared to prior study common best characterized on dedicated pelvic sonogram on 11/07/2022. THIS IS AN ELECTRONICALLY VERIFIED FINAL REPORT 12/24/2022 6:58 PM - Electronically signed by ??Lisa Matute M.D. AT D: ??12/24/2022 6:58 PM T: Report ID: [id number] Reading Location: ??[id number] Procedure Note Lisa Matute MD - 12/24/2022 EXAM DESCRIPTION: CT ABDOMEN PELVIS WO CONTRAST REASON FOR STUDY: Flank pain, kidney stone suspected, bilateral flankpain Pt presents to ED for lower back pain that radiates to bilateral sides of abdomen x 1 day, hx of Hysterectomy TECHNIQUE: CT scan of the abdomen and pelvis performed without intravenousand without oral contrast using helical scanning technique. Reconstructed coronal and sagittal MPR images reviewed. All images stored on PACS. Automated exposure control was used as a dose optimization technique forthis examination. COMPARISON: 11/07/2022 REFERENCE: Per ACR white paper recommendations, unless otherwise specifiedno follow-up imaging is recommended for incidental renal and adrenal lesionsper consensus recommendations based on imaging criteria. Further labevaluation could be pursued based on clinical findings. FINDINGS: The sensitivity for detection of visceral lesions is diminished without the use of intravenous contrast. LOWER CHEST: Mild subsegmental atelectasis and slight right middle lobe scarring. No pleural effusion. Imaged portions of the heart are normal. LIVER: Mild hepatomegaly. Mild diffuse hepatic steatosis with focalfatty sparing adjacent to the gallbladder fossa. No identified cystic or solid masses. GALLBLADDER: Decompressed but normal. BILE DUCTS: No intrahepatic or extrahepatic ductal dilatation. SPLEEN: Normal size. No focal lesions. PANCREAS: No identified cystic or solid masses. No significant calcifications. No adjacent inflammation or peripancreatic fluidcollections. Pancreatic duct not dilated. ADRENALS: Normal. KIDNEYS/URINARY TRACT: No identified significant cystic or solid masses. There is a nonobstructive 2 mm calculus in the interpolar region of theleft kidney.. No hydronephrosis or hydroureter. Urinary bladder [...] is a left ovarianhypoattenuating lesion measuring approximately 3 cm which has not substantially changed compared to prior study. VASCULATURE: No abdominal aortic aneurysm. MUSCULOSKELETAL: No acute fractures or aggressive osseous lesions. IMPRESSION: 1. Nonobstructive 2 mm calculus in the interpolar region ofthe left kidney.. No hydronephrosis or hydroureter. 2. Sigmoid colonic diverticulosis. No CT evidence of acutediverticulitis. Normal appendix. 3. Left ovarian hypoattenuating lesion measuring approximately 3 cm whichhas not substantially changed compared to prior study common bestcharacterized on dedicated pelvic sonogram on 11/07/2022. THIS IS AN ELECTRONICALLY VERIFIED FINAL REPORT 12/24/2022 6:58 PM - Electronically signed by Lisa Matute M.D. AT T: Report ID: [id number] Reading Location: [place] [address] [facility] [address] PROCEDURES Final Resu lt * eGFR (12/24/2022 6:26 PM CDT) eGFR 114 mL/min/1. 73 m2 CHARLEEN WILKINSON [...] interpretive data was last reviewed 2021. Blood 12/24/2022 6:26 PM CDT 12/24/2022 6:38 PM CDT [facility] BLOOD ORDERABLES Final R esult [place] [id number] [facility] [place] [address] * Differential, auto (12/24/2022 6:26 PM CDT) Pathologist [facility] [place] Neutrophil abs 4.4 1.7 - 6.5 K/cumm [facility] Imm gran abs 0.0 0.0 - 0.1 K/cumm [facility] Lymphocyte abs 3.2 0.8 - 3.3 K/cumm [facility] Monocyte abs 0.7 0.2 - 0.8 K/cumm [facility] Eosinophil abs 0.2 0.0 - 0.5 K/cumm [facility] Basophil abs 0.0 0.0 - 0.1 K/cumm [facility] Neutrophil pct 51.4 % [facility] Comment: Interpretive Data Percent cell count reference ranges are not reported, since discordance with absolute values may lead to misinterpretation of CBC data. Current Interpretive Data was last revised on 2017. Imm gran pct 0.2 % [facility] Comment: Interpretive Data Percent cell count reference ranges are not reported, since discordance with absolute values may lead to misinterpretation of CBC data. Current Interpretive Data was last revised on 2017. Lymphocyte pct 37.2 % [facility] Comment: Interpretive Data Percent cell count reference ranges are not reported, since discordance with absolute values may lead to misinterpretation of CBC data. Current Interpretive Data was last revised on 2017. Monocyte pct 8.5 % [facility] Comment: Interpretive Data Percent cell count reference ranges are not reported, since discordance with absolute values may lead to misinterpretation of CBC data. Current Interpretive Data was last revised on 2017. Eosinophil pct 2.2 % [facility] Comment: Interpretive Data Percent cell count reference ranges are not reported, since discordance with absolute values may lead to misinterpretation of CBC data. Current Interpretive Data was last revised on 2017. Basophil pct 0.5 % [facility] Comment: Interpretive Data Percent cell count reference ranges are not reported, since discordance with absolute values may lead to misinterpretation of CBC data. Current Interpretive Data was last revised on 2017. Blood 12/24/2022 6:26 PM CDT 12/24/2022 6:38 PM CDT [facility] BLOOD ORDERABLES Final R esult [place] [id number] [facility] Department of Laboratories [place], [place] [id number] * (ABNORMAL) Urinalysis reflex to microscopic and culture Urine (12/24/2022 6:26 PM CDT) Color, ur Yellow Yellow [facility] Clarity, ur Cloudy(A) Clear [facility] Specific gravity, ur 1.028 1.003 - 1.030 [facility] pH, urine 5.0 [facility] Protein, ur ql Negative Negative [facility] Glucose, ur ql Negative Negative [facility] Ketones, ur Negative Negative [facility] Bilirubin, ur Negative Negative [facility] Blood, ur Negative Negative [facility] Urobilinogen, ur <2.0 <2.0 mg/dL [facility] Nitrite, ur Negative Negative [facility] Leukocyte esterase, ur Negative Negative [facility] UA reflex comment Reflex conditions for microscopic UA and culture not met. [facility] Urine 12/24/2022 6:26 PM CDT 12/24/2022 6:38 PM CDT Narrative [facility] - 12/24/2022 6:46 PM CDT ?? Urine pH is affected by diet, medications, systemic acid-base disturbances, and renal tubular function. ??pH may affect urinary stone formation. ??For example, urine pH below 6.0 may help reduce the tendency for calcium phosphate stones and pH greater than 6.0 may reduce the tendency for uric acid stone formation. Source: [facility] [employer]. Last revised 08-22-2017 [facility] MICROBIOLOGY - GENERAL O RDERABLES Final Result Performing Organization Address [facility] Co de Phone Number [address] [place] [address] * Lipase (12/24/2022 6:26 PM CDT) Pathologist [facility] [place] Lipase 34 10 - 99 Units/L [facility] Blood 12/24/2022 6:26 PM CDT 12/24/2022 6:38 PM CDT [facility] BLO[facility] ORDERAB[facility] Final R esult Performing Organization Address [facility] Co de Phone Number [address] [address] * Comprehensive metabolic panel (12/24/2022 6:26 PM CDT) Sodium 139 135 - 145 mmol/L [facility] Potassium, pl 4.0 3.3 - 4.9 mmol/L [facility] Chloride 104 97 - 110 mmol/L [facility] CO2 22 22 - 32 mmol/L [facility] Anion gap 13 2 - 15 mmol/L [facility] BUN 12 8 - 25 mg/dL [facility] Creatinine 0.60 0.60 - 1.10 mg/dL [facility] Glucose 85 70 - 199 mg/dL [facility] [...] 2022. Calcium 9.5 8.5 - 10.3 mg/dL [facility] Bilirubin, total <0.2 0.1 - 1.2 mg/dL [facility] Protein, pl 7.3 6.5 - 8.5 g/dL [facility] Albumin 4.4 3.5 - 5.0 g/dL [facility] Alk phos 88 40 - 130 Units/L [facility] ALT 28 7 - 45 Units/L [facility] AST 22 10 - 45 Units/L [facility] Blood 12/24/2022 6:26 PM CDT 12/24/2022 6:38 PM CDT us [facility] BLOOD ORDERABLES Final R esult [facility] [address] [facility] Department [place] [address] * (ABNORMAL) CBC with auto differential (12/24/2022 6:26 PM CDT) Pathologist [facility] WBC 8.6 3.8 - 9.9 K/cumm [facility] Hgb 14.7 11.9 - 15.5 g/dL [facility] Hct 41.1 35.6 - 45.5 % [facility] Plt 258 150 - 400 K/cumm [facility] MPV 9.5 9.1 - 12.3 fL [facility] RBC 4.66 3.90 - 5.20 M/cumm [facility] MCV 88.2 81.3 - 96.4 fL [facility] MCH 31.5 27.1 - 33.3 pg [facility] MCHC 35.8(H) 32.3 - 35.7 g/dL [facility] RDW CV 12.8 11.1 - 14.9 % [facility] RDW SD 41.0 35.7 - 48.1 fL [facility] NRBC abs 0.00 0.00 - 0.01 K/cumm [facility] Blood 12/24/2022 6:26 PM CDT 12/24/2022 6:38 PM CDT [facility] BLOOD ORDERABLES Final R esult [place] [address] [facility] Department of Laboratories [place], [place] [id number] documented in this encounter Visit Diagnoses Not on filedocumented in this encounter Administered Medications Inactive Administered Medications - up to 3 most recent administrations Medication Order MAR Action Action Date Dose Rate Site amLODIPine (NORVASC) tablet 10 mg 10 mg, oral, Once, On Sat12/24/22 at 1818, For 1 dose Given 12/24/2022 6:31 PM CDT 10 mg cloNIDine (CATAPRES) tablet 0.1 mg 0.1 mg, oral, Once, On Sat12/24/22 at 2046, For 1 dose Given 12/24/2022 9:27 PM CDT 0.1 mg hydrALAZINE (APRESOLINE) tablet 25 mg 25 mg, oral, Once, On Sat12/24/22 at 1818, For 1 dose, Indications: hypertensionIndications:hyperten rodney Given 12/24/2022 6:31 PM CDT 25 mg HYDROcodone-acetaminophen (NORCO) 5-325 mg per tablet 1 tablet 1 tablet, oral, Once, On Sat12/24/22 at 1818, For 1 dose, Indications: PainIndications:Pain Given 12/24/2022 6:31 PM CDT 1 tablet documented in this encounter Active and Recently Administered Medications Times are shown in CDT. Scheduled Medication Order 12/23/2022 12/24/2022 12/25/2022 amLODIPine (NORVASC) tablet 10 mg (COMPLETED) 10 mg, oral, Once, On Sat12/24/22 at 1818, For 1 dose 1831 (Given - Provider: Smiley Mancia RN) cloNIDine (CATAPRES) tablet 0.1 mg (COMPLETED) 0.1 mg, oral, Once, On Sat12/24/22 at 2046, For 1 dose 2126 (Given - Provider: Darcy Boothe RN) hydrALAZINE (APRESOLINE) tablet 25 mg (COMPLETED) 25 mg, oral, Once, On Sat12/24/22 at 1818, For 1 dose, Indications: hypertension 183 (Given - Provider: Smiley Mancia RN) HYDROcodone-acetaminophen (NORCO) 5-325 mg per tablet 1 tablet (COMPLETED) 1 tablet, oral, Once, On Sat12/24/22 at 1818, For 1 dose, Indications: Pain 183 (Given - Provider: Smiley Mancia RN) documented in this encounter Care Teams Supervisor Central Supply Relationship Specialty Start Date End Date Lucas Carter DO PCP - General Internal Medicine 08/15/22 documented as of this encounter
--- OUTSIDE RECORDS SUMMARY | 2024-08-17 01:55 | XMS_ITS | Encounter Summary ---
Author Organization [facility] Healthcare Address [address] [place] [address] Care Team Providers Care Accounts Payable Supervisor Name Role Phone Damian Sadler MD Primary Care Provider [phone] Encounter Details Date Type Department Care Team (Late st Contact Info) Description 06/06/2018 Telephone [facility] Emergency Department [address] [place] [address] Kristi Lilly RN Social History Tobacco Use Types Packs/Day Years Used Date Smoking Tobacco: Every Day Cigarettes Smokeless Tobacco: Never Alcohol Use Standard Drinks/Week Comments No 0 (1 standard drink = 0.6 oz pur e alcohol) Comments No Sex and Gender Information Value Date Recorded Sex Assigned at Not on file Legal Sex Female 9:06 PM TAPPER HAND Gender Identity Female 10/01/2023 8:44 AM TAPPER HAND Sexual Orientation Straight 10/01/2023 8: 44 AM TAPPER HAND documented as of this encounter ED Notes * Kristi Lilly RN - 06/06/2018 12:17 PM CDT Certified letter returned undeliverable. Kristi Lilly RN 06/06/18 1217 documented in this encounter Plan of Treatment Not on file documented as of this encounter Visit Diagnoses Not on filedocumented in this encounter Care Teams Accounts Payable Supervisor Relationship Specialty Start Date End Date Damian Sadler MD PCP - General 11/29/16 05/18/22 documented as of this encounter
--- OUTSIDE RECORDS SUMMARY | 2024-08-17 01:55 | XMS_ITS | Encounter Summary ---
Author Organization [facility] Care Team Providers Care Light Bulb Tester Name Role Phone Damian Sadler MD Primary Care Provider [phone] Encounter Details Date Type Department Care Team (Latest Contact Info) Description 07/20/2019 Travel Social History Tobacco Use Types Packs/Day Years Used Date Smoking Tobacco: Every Day Cigarettes Smokeless Tobacco: Never Alcohol Use Standard Drinks/Week Comments No 0 (1 standard drink = 0.6 oz pur e alcohol) Comments No Sex and Gender Information Value Date Recorded Sex Assigned at Not on file Legal Sex Female 9:06 PM PHARMACY TECH CUSTOMER SERVICE Gender Identity Female 10/01/2023 8:44 AM PHARMACY TECH CUSTOMER SERVICE Sexual Orientation Straight 10/01/2023 8: 44 AM PHARMACY TECH CUSTOMER SERVICE documented as of this encounter Plan of Treatment Not on file documented as of this encounter Visit Diagnoses Not on filedocumented in this encounter Care Teams Light Bulb Tester Relationship Specialty Start Date End Date Damian Sadler MD PCP - General 11/29/16 05/18/22 documented as of this encounter
--- OUTSIDE RECORDS SUMMARY | 2024-08-17 01:55 | XMS_ITS | Encounter Summary ---
Author Organization [facility] Address [address] [place] [address] Care Team Providers Care Maritime Officer Name Role Phone Damian Sadler MD Primary Care Provider Reason for Visit * Reason Comments Back Pain Encounter Details Date Type Department Care Team (Late st Contact Info) Description 11/11/2018 1:53 PM CDT - 11/11/2018 3:44 PM CDT Emergency [facility] Emergency Department [address] [place] [id number] Acute right flank pain (Primary Dx); Strain of flank, initial encounter Discharge Disposition: Discharge to home or self care Social History Tobacco Use Types Packs/Day Years Used Date Smoking Tobacco: Every Day Cigarettes Smokeless Tobacco: Never Alcohol Use Standard Drinks/Week Comments No 0 (1 standard drink = 0.6 oz pur e alcohol) Comments No Sex and Gender Information Value Date Recorded Sex Assigned at Not on file Legal Sex Female 9:06 PM ELECTRIC DEICER INSPECTOR Gender Identity Female 10/01/2023 8:44 AM ELECTRIC DEICER INSPECTOR Sexual Orientation Straight 10/01/2023 8: 44 AM ELECTRIC DEICER INSPECTOR documented as of this encounter Last Filed Vital Signs Vital Sign Reading Time Taken Comments Blood Pressure 152/126 11/11/2018 1:58 PM CDT Pulse 87 11/11/2018 1:58 PM CDT Temperature 36.6 ??C (97.8 ??F) 11/11/2018 1:58 PM CD T Respiratory Rate 18 11/11/2018 1:58 PM CDT Oxygen Saturation 98% 11/11/2018 1:58 PM CDT Inhaled Oxygen Concentration - - Weight 77.1 kg (170 lb) 11/11/2018 1:58 PM CDT Height 160 cm (5' 3 ) 11/11/2018 1:58 PM CDT Body Mass Index 30.11 11/11/2018 1:58 PM CDT documented in this encounter Discharge Instructions * Attachments The following attachments cannot be sent through Care Everywhere. * Muscle Strain (Energy Risk Management Analyst) ([place]) documented in this encounter Medications at Time of Discharge MULTIVIT-MINERALS/FE RROUS FUM (MULTI VITAMIN ORAL)Indications:hea lth Take 1 tablet by mouth special education math teacher 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 omeprazole (PriLOSEC) 20 mg capsuleIndications:T reatment of Non-Bleeding Gastric Disorder Take 1 capsule (20 mg total) by mouth special education math teacher 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 acetaminophen-codein e (TYLENOL with CODEINE #3) 300-30 mg per tablet Take 1 tablet by mouth every 6 (six) hours as needed for pain Take with food as directed for pain. 15 tablet 11/11/2018 0 cyclobenzaprine (FLEXERIL) 10 mg tablet Take 1 tablet (10 mg total) by mouth 2 (two) times a day as needed for muscle spasms. 20 tablet 03/19/2018 1 lisinopril (PRINIVIL,ZESTRIL) 20 mg tablet Take 20 mg by mouth daily. 2 ondansetron ODT (ZOFRAN-ODT) 4 mg disintegrating tablet Dissolve 1 tablet oral every 4 hours as needed for nausea or vomiting. 15 tablet 05/20/2018 0 tiZANidine (ZANAFLEX) 4 mg tablet Take 1 tablet (4 mg total) by mouth every 6 (six) hours as needed (To relax muscles) 20 tablet 11/11/2018 0 documented as of this encounter Ordered Prescriptions Prescription Sig Dispense Quantity Refills Last Filled Start Date End Date tiZANidine (ZANAFLEX) 4 mg tablet Take 1 tablet (4 mg total) by mouth every 6 (six) hours as needed (To relax muscles) 20 tablet 11/11/2018 0 acetaminophen-code ine (TYLENOL with CODEINE #3) 300-30 mg per tablet Take 1 tablet by mouth every 6 (six) hours as needed for pain Take with food as directed for pain. 15 tablet 11/11/2018 0 documented in this encounter Discharge Disposition Disposition Code Departure Means Destination Discharge to home or self care documented in this encounter ED Notes * Anson Hutchinson PA - 11/11/2018 2:07 PM CDT HPI Chief Complaint Patient presents with ??? Back Pain 38-year-old female with history of kidney stones presents with chief complaint of right flank pain.Acute onset around 2:00 a.m. this morning. Describes the pain as a constant, moderate to severe at times, and stabbing. Aggravated by urinating. Denies burning with urination or urinary frequency. Urine has been darker than usual. Took [id number] ibuprofen with minimal relief. Denies fever oror chills. Denies nausea or vomiting. Has not passed a kidney stone in nearly 2 years. Patient History Patient Active Problem List Diagnosis Date Noted ??? Acute right flank pain 11/11/2018 ??? Strain of flank 11/11/2018 Past Medical History: Diagnosis Date ??? Hypertension Past Surgical History: Procedure Laterality Date ??? SECTION ??? HYSTERECTOMY ??? KIDNEY SURGERY History reviewed. No pertinent family history. Social History Tobacco Use ??? Smoking status: Current Every Day Smoker Packs/day: 0.50 ??? Smokeless tobacco: Never Used Substance Use Topics ??? Alcohol use: No ??? Drug use: No Social History Social History Narrative ??? Not on file Review of Systems Review of Systems Constitutional: Negative. HENT: Negative. Eyes: Negative. Cardiovascular: Negative. All other systems reviewed negative. All available allergies, past medical history, past surgical history, social history, and medications reviewed from the medical record, nursing notes, and with patient Physical Exam ED Triage Vitals [11/11/18 1358] Temp Pulse Resp BP SpO2 36.6 ??C (97.8 ??F) 87 18 (!) 152/126 98 % Temp src Heart Rate Source Patient Position BP Location FiO2 (%) Oral -- -- -- -- Physical Exam Constitutional: She is oriented to person, place, and time. She appears well- developed and well-nourished. No distress. HENT: Head: Normocephalic. Right Ear: External ear normal. Left Ear: External ear normal. Nose: Nose normal. Mouth/Throat: Oropharynx is clear and moist. Eyes: Pupils are equal, round, and reactive to light. Conjunctivae are normal. Neck: Normal range of motion. Cardiovascular: Normal rate, regular rhythm, normal heart sounds and intact distal pulses. Pulmonary/Chest: Effort normal and breath sounds normal. Abdominal: Soft. Bowel sounds are normal. She exhibits no distension. There is no rebound and no guarding. Right CVA tenderness. Neurological: She is alert and oriented to person, place, and time. Skin: Skin is warm and dry. She is not diaphoretic. Psychiatric: She has a normal mood and affect. Her behavior is normal. Judgment and thought contentnormal. Nursing note and vitals reviewed. [facility] ED Course as of Nov 12 1527 Time: 11/11 152 Comment: Pre-hypertension/Hypertension: The patient has been informed that they may have pre-hypertension or Hypertension based on a blood pressure reading in the emergency department. I recommend that the patient call the primary care provider listed on their discharge instructions or a physician of their choice this week to arrange follow up for further evaluation of possible pre- hypertension or Hypertension. By: AMISH Walters Time: 11/11 152 Comment: Discussed with pt all findings as well as plan of care. Pt understands and is agreeable with plan for discharge. All questions and concerns addressed By: AMISH Walters Acute right flank pain Strain of flank, initial encounter AMISH Walters 11/11/18 1528 Cosigned by William Kelly MD at 11/11/2018 6:00 PM CDT Associated attestation - William Kelly MD - 11/11/2018 6:00 PM CDT ED Attestation Based on the medical record the care appears appropriate. * Christina Roach RN - 11/11/2018 1:56 PM CDT 38 y.o. Female pt to ED with complaint of back pain. Pt reports this began at 2am, pt thought she had over done it, took 2 ibu and had no relief, stabbing pain to R flank area began around 1030 am today. Pt denies any pain/burning with urination. documented in this encounter Plan of Treatment Not on file documented as of this encounter Procedures Procedure Name Priority Date/Time Associated Diagnosis Comments CT KUB STONE WO CONTRAST ED 11/11/2018 2:49 PM CDT URINALYSIS AND REFLEX TO MICROSCOPIC AND CULTURE STAT 11/11/2018 2:09 PM CDT documented in this encounter Results * CT KUB Stone WO Contrast (11/11/2018 2:49 PM CDT) Anatomical Region Laterality Modality Abdomen N/A Computed Tomogra phy 11/11/2018 3:04 PM CDT Impressions 11/11/2018 3:11 PM CDT 1. ??No urinary tract abnormality seen. 2. ??2-3 mm right ovarian vein phlebolith anterior to right psoas muscle. 3. ??Normal appendix. 4. ??Status post hysterectomy. 5. ??No other significant abdominal or pelvic findings. Electronically signed by: Cruzito Beauchamp Jr., M.D. Narrative 11/11/2018 3:[address] KUB STONE WO CONTRAST HISTORY: Right-sided flank pain. ??History of stones. ??Prior hysterectomy. COMPARISON: CT abdomen pelvis with contrast on 05/20/2018. TECHNIQUE: Noncontrast spiral axial scans from above kidneys to ischial tuberosities. ??Coronal and sagittal reformatted images. FINDINGS: No renal calcification is seen. ??A few bilateral pelvic phleboliths are noted. ??A 2-3 mm calcification anterior to the right psoas muscle at lumbosacral junction appears lateral to the course of the right ureter and compatible with an ovarian vein phlebolith. No renal mass, cyst or hydronephrosis/hydroureter is demonstrated. Partially filled urinary bladder appears normal. Visualized portions of liver and spleen are normal. Gallbladder is normal. ??Bile ducts are not dilated. Pancreas and adrenal glands appear normal. Uterus and ovaries are surgically absent. Appendix is normal. Stool quantity is normal. ??No dilated or thickened loops of colon or small bowel are seen. ??Stomach appears normal. Abdominal aorta is minimally arteriosclerotic. No lymphadenopathy or ascites is seen. ??No other abnormal abdominal mass or fluid collection is seen. Abdominal and pelvic wall structures appear intact. Visualized bony structures are unremarkable. Procedure Note Cruzito Beauchamp Jr., MD - 11/11/2018 CT KUB STONE WO CONTRAST HISTORY: Right-sided flank pain. History of stones. Prior hysterectomy. COMPARISON: CT abdomen pelvis with contrast on 05/20/2018. TECHNIQUE: Noncontrast spiral axial scans from above kidneys to ischial tuberosities. Coronal and sagittal reformatted images. FINDINGS: No renal calcification is seen. A few bilateral pelvic phleboliths are noted. A 2-3 mm calcification anterior to the right psoas muscle at lumbosacral junction appears lateral to the course of the right ureter and compatible with an ovarian vein phlebolith. No renal mass, cyst or hydronephrosis/hydroureter is demonstrated. Partially filled urinary bladder appears normal. Visualized portions of liver and spleen are normal. Gallbladder is normal. Bile ducts are not dilated. Pancreas and adrenal glands appear normal. Uterus and ovaries are surgically absent. Appendix is normal. Stool quantity is normal. No dilated or thickened loops of colon or small bowel are seen. Stomach appears normal. Abdominal aorta is minimally arteriosclerotic. No lymphadenopathy or ascites is seen. No other abnormal abdominal mass or fluid collection is seen. Abdominal and pelvic wall structures appear intact. Visualized bony structures are unremarkable. IMPRESSION: 1. No urinary tract abnormality seen. 2. 2-3 mm right ovarian vein phlebolith anterior to right psoas muscle. 3. Normal appendix. 4. Status post hysterectomy. 5. No other significant abdominal or pelvic findings. Electronically signed by: Cruzito Beauchamp Jr., M.D. [facility] PROCEDURES Final Resu lt * Urinalysis reflex to microscopic and culture Urine (11/11/2018 2:09 PM CDT) Color, ur Yellow Yellow [facility] Clarity, ur Clear Clear [facility] Specific gravity, ur 1.013 1.010 - 1.025 [facility] pH, urine 6.0 [facility] Protein, ur ql Negative Negative [facility] Glucose, ur ql Negative Negative [facility] Ketones, ur Negative Negative [facility] Bilirubin, ur Negative Negative [facility] Blood, ur Negative Negative [facility] Urobilinogen, ur 0.2 mg/dL [facility] Nitrite, ur Negative Negative [facility] Leukocyte esterase, ur Negative Negative [facility] Urine 11/11/2018 2:09 PM CDT 11/11/2018 2:11 PM CDT Narrative [facility] - 11/11/2018 2:17 PM CDT ?? Urine pH is affected by diet, medications, systemic acid-base disturbances, and renal tubular function. ??pH may affect urinary stone formation. ??For example, urine pH below 6.0 may help reduce the tendency for calcium phosphate stones and pH greater than 6.0 may reduce the tendency for uric acid stone formation. Source: [employer]. Last revised 08-22-2017 [facility] MICROBIOLOGY - GENERAL O RDERABLES Final Result [facility] [place] [address] documented in this encounter Visit Diagnoses Diagnosis Acute right flank pain- Primary Acute right flank pain Strain of flank, initial encounter Strain of flank documented in this encounter Care Teams Maritime Officer Relationship Specialty Start Date End Date Damian Sadler MD PCP - General 11/29/16 05/18/22 documented as of this encounter
--- OUTSIDE RECORDS SUMMARY | 2024-08-17 01:55 | XMS_ITS | Encounter Summary ---
Author Organization [facility] Healthcare Address [address] [place] [address] Care Team Providers Care Bisque Kiln Placer Name Role Phone Damian Sadler MD Primary Care Provider Reason for Visit * Reason Comments Dental Pain Encounter Details Date Type Department Care Team (Late st Contact Info) Description 07/20/2019 6:58 PM APPLIANCE FIXER - 07/20/2019 9:18 PM APPLIANCE FIXER Emergency [facility] Emergency Department [address] [place] [address] Brice Oconnell MD [address] [facility] [address] [place] [address] Dental abscess (Primary Dx) Discharge Disposition: Discharge to home or self care Social History Tobacco Use Types Packs/Day Years Used Date Smoking Tobacco: Every Day Cigarettes Smokeless Tobacco: Never Alcohol Use Standard Drinks/Week Comments No 0 (1 standard drink = 0.6 oz pur e alcohol) Comments No Sex and Gender Information Value Date Recorded Sex Assigned at Not on file Legal Sex Female 9:06 PM APPLIANCE FIXER Gender Identity Female 10/01/2023 8:44 AM APPLIANCE FIXER Sexual Orientation Straight 10/01/2023 8: 44 AM APPLIANCE FIXER documented as of this encounter Last Filed Vital Signs Vital Sign Reading Time Taken Comments Blood Pressure 145/95 07/20/2019 9:17 PM APPLIANCE FIXER Pulse 78 07/20/2019 9:17 PM APPLIANCE FIXER Temperature 36.8 ??C (98.2 ??F) 07/20/2019 6:16 PM CS T Respiratory Rate 16 07/20/2019 6:16 PM APPLIANCE FIXER Oxygen Saturation 100% 07/20/2019 9:17 PM APPLIANCE FIXER Inhaled Oxygen Concentration - - Weight 78.7 kg (173 lb 6.4 oz) 07/20/2019 6:14 P M APPLIANCE FIXER Height 160 cm (5' 3 ) 07/20/2019 6:14 PM APPLIANCE FIXER Body Mass Index 30.72 07/20/2019 6:14 PM APPLIANCE FIXER documented in this encounter Discharge Diagnoses Diagnosis Periapical abscess without sinus - PERIAPICAL ABSCESS WITHOUT SINUS Essential (primary) hypertension - ESSENTIAL (PRIMARY) HYPERTENSION Unspecified essential hypertension Nicotine dependence, cigarettes, uncomplicated - NICOTINE DEPENDENCE, CIGARETTES, UNCOMPLICATED 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 Take the antibiotic given until it is finished. Call your regular dentist or one of the dentists on the list given today to get a follow up appointment after you finish the antibiotics. If you develop unbearable pain even with medications, fever >101F, inability to swallow because of pain or swelling, or other concerning symptoms, you may be developing a serious infection and should return to the ER immediately. IANCE FIXER * Attachments The following attachments cannot be sent through Care Everywhere. * Dental Abscess (Instrument Adjuster) ([place]icarag[place]) documented in this encounter Medications at Time of Discharge MULTIVIT-MINERALS/FE RROUS FUM (MULTI VITAMIN ORAL)Indications:hea lth Take 1 tablet by mouth soil expert 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 omeprazole (PriLOSEC) 20 mg capsuleIndications:T reatment of Non-Bleeding Gastric Disorder Take 1 capsule (20 mg total) by mouth soil expert 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 penicillin v potassium (VEETID) 500 mg tabletIndications:Up per Respiratory/HEENT Infection Take 1 tablet (500 mg total) by mouth 2 (two) times a day for 7 days 14 tablet 07/20/2019 9 acetaminophen (TYLENOL) 500 mg tablet Take 1-2 tablets (500-1,000 mg total) by mouth every 6 (six) hours as needed for pain (1 tablet for mild to moderate pain. 2 tablets for severe pain) 30 tablet 06/05/2019 0 acetaminophen-codein e (TYLENOL with CODEINE #3) 300-30 mg per tablet Take 1 tablet by mouth every 6 (six) hours as needed for pain Take with food as directed for pain. 15 tablet 11/11/2018 0 acetaminophen-codein e (TYLENOL with CODEINE #3) 300-30 mg per tablet Take 1-2 tablets by mouth every 6 (six) hours as needed for pain 12 tablet 07/20/2019 0 chlorhexidine (PERIDEX) 0.12 % solution Swish 15 mL in mouth for 30 seconds then spit out twice a day after brushing teeth, 473 mL 06/05/2019 0 cyclobenzaprine (FLEXERIL) 10 mg tablet Take [...] Refills Last Filled Start Date End Date penicillin v potassium (VEETID) 500 mg tabletIndications: Upper Respiratory/HEENT Infection Take 1 tablet (500 mg total) by mouth 2 (two) times a day for 7 days 14 tablet 07/20/2019 9 acetaminophen-code ine (TYLENOL with CODEINE #3) 300-30 mg per tablet Take 1-2 tablets by mouth every 6 (six) hours as needed for pain 12 tablet 07/20/2019 0 penicillin v potassium (VEETID) 500 mg tabletIndications: Upper Respiratory/HEENT Infection Take 1 tablet (500 mg total) by mouth 2 (two) times a day for 7 days 14 tablet 07/20/2019 9 documented in this encounter Discharge Disposition Disposition Code Departure Means Destination Discharge to home or self care documented in this encounter ED Notes * Crow Johnson MD - 07/20/2019 7:29 PM CST HPI Chief Complaint Patient presents with ??? Dental Pain 39 yo female hx HTN, prior dental procedures presents with worsening left upper dental pain and swelling for past 3 days. Had bridge 18 months ago, failed and fracture tooth 3 months ago, then above-noted symptoms progressing over the past few days. No outer face swelling, no airway swelling, no neck swelling. No fevers or chills. Nausea as she has not been able the tolerate oral intake secondaryto the pain. Called her dentist, directed her to the emergency department for acute management. Hasa procedure scheduled for the 07 of August. Nothing is helping with the pain or swelling. Patient History Patient Active Problem List Diagnosis [...] No ??? Drug use: No Social History Patient does not qualify to have social determinant information on file (likely too young). Social History Narrative ??? Not on file Review of Systems Review of Systems Constitutional: Negative for chills, fatigue and fever. HENT: Negative for ear pain, trouble swallowing and voice change. Eyes: Negative for pain and visual disturbance. Respiratory: Negative for cough, chest tightness, shortness of breath and wheezing. Cardiovascular: Negative for chest pain, palpitations and leg swelling. Gastrointestinal: Negative for abdominal pain, blood in stool, constipation, diarrhea, nausea and vomiting. Genitourinary: Negative for dysuria. Musculoskeletal: Negative for back pain and neck pain. Skin: Negative for rash and wound. Neurological: Negative for dizziness, syncope, weakness, light-headedness, numbness and headaches. Psychiatric/Behavioral: Negative for agitation. Physical Exam ED Triage Vitals [07/20/191815] Temp Pulse Resp BP SpO2 36.8 ??C (98.2 ??F) 81 16 (!) 154/108 100 % Temp src Heart Rate Source Patient Position BP Location FiO2 (%) Oral -- -- -- -- Physical Exam Vitals signs and nursing note reviewed. Constitutional: General: She is not in acute distress. Appearance: She is well-developed. HENT: Head: Normocephalic and atraumatic. Mouth/Throat: Comments: Teeth 14 and 15 chronic traumatic fracture, buccal gingiva with focal purulence and abscess. No lingual swelling. No outer face or neck swelling. No uvular swelling or deviaion. No stridor or dyspnea Eyes: Conjunctiva/sclera: Conjunctivae normal. Neck: Musculoskeletal: Neck supple. Cardiovascular: Rate and Rhythm: Normal rate and regular rhythm. Heart sounds: Normal heart sounds. No murmur. Pulmonary: Effort: Pulmonary effort is normal. No respiratory distress. Breath sounds: Normal breath sounds. Abdominal: General: Bowel sounds are normal. There is no distension. Palpations: Abdomen is soft. Tenderness: There is no tenderness. There is no guarding. Skin: General: Skin is warm and dry. Neurological: Mental Status: She is alert and oriented to person, place, and time. MDM MDM Number of Diagnoses or Management Options Diagnosis management comments: 39-year-old female with dental abscess to the left upper molars, no airway compromise, no evidence of neck involvement or Scott's angina. Will plan for anesthesia, drainage at the bedside, antibiotics, p.o. challenge and likely discharge home with dental follow-up. Attending Summary of Care ED Course as of Jul 20 2058 Time: 07/20 2057 Comment: The patient prefers to use a short course of oral opioids if needed, I counseled on the proper storage and use of oral opioids as well as a possible habit-forming quality of these medications, even for a short course. The patient expressed understanding and preferred to use these medication despite these risks. By: Crow Johnson MD Dental abscess Crow Johnson MD Resident 07/20/192057 Cosigned by Brice Oconnell MD at 07/21/2019 1:20 AM APPLIANCE FIXER IANCE FIXER IANCE FIXER Associated attestation - Brice Oconnell MD - 07/21/2019 1:20 AM APPLIANCE FIXER I have seen and examined the patient on 07/20/2019 . I agree with the findings and plan of care as documented in the resident's note. Abscess on the left upper molar region secondary to poor dentition. No in plan is to insert injury and discharge the patient on antibiotics. * Tonja Mcgrath RN - 07/20/2019 6:15 PM CST Patient to ED c/o a left upper dental abscess. IANCE FIXER documented in this encounter Miscellaneous Notes * ED Procedure Note - Crow Johnson MD - 07/20/2019 8:51 PM APPLIANCE FIXER Associated Order(s): Incision and Drainage Procedure Incision and Drainage Date/Time: 07/20/2019 8:51 PM Performed by: Crow Johnson MD Authorized by: Brice Oconnell MD RN Notified of Procedure: yes Informed consent: Risks, benefits, alternatives discussed Patient's stated name/ matches armband: Yes Allergies confirmed: yes Consent form signed, dated, timed; matches correct patient, intended procedure and site: No consentform due to emergent status Imaging: N/a Lab/Diag test results: N/a Supplies, devices and special equipment are available: yes Site/side marked: yes Type: Abscess Size: 2 cm Location: Mouth Mouth location: left upper molar. Anesthesia method: Local infiltration Local anesthetic: Bupivacaine 0.5% (periapical block, 4 cc. Complete anesthesia) Needle aspiration: no Incision types: Stab incision Incision depth: Dermal Scalpel blade: 11 Wound management: Probed and deloculated Drainage: Bloody Drainage amount: Scant Wound treatment: Wound left open Packing materials: None Patient tolerance of procedure: Tolerated well, no immediate complications All guidewires, needles, sponges or other items are accounted for: yes Any special post procedure monitoring, testing or other considerations: n/a All specimens identified, labeled and matched to patient identification: n/a Responsible republican for transporting specimen(s) to lab determined: n/a Crow Johnson MD Resident 07/20/192054 Cosigned by Brice Oconnell MD at 07/21/2019 12:10 AM APPLIANCE FIXER IANCE FIXER IANCE FIXER Associated attestation - Brice Oconnell MD - 07/21/2019 12:10 AM APPLIANCE FIXER I was present for the millard portions of the procedure: blade insertion and remained immediately available for the remainder of the procedure. documented in this encounter Plan of Treatment Not on file documented as of this encounter Procedures Procedure Name Priority Date/Time Associated Diagnosis Comments CT INCISION & DRAINAGE ABSCESS SIMPLE/SINGLE Routine 07/20/2019 8:51 PM APPLIANCE FIXER documented in this encounter Results * CT INCISION & DRAINAGE ABSCESS SIMPLE/SINGLE (07/20/2019 8:51 PM APPLIANCE FIXER) Narrative Brice Oconnell MD - 07/20/2019 8:51 PM APPLIANCE FIXER Crow Johnson MD ? 07/20/2019 ??8:55 PM Incision and Drainage Date/Time: 07/20/2019 8:51 PM Performed by: Crow Johnson MD Authorized by: Brice Oconnell MD RN Notified of Procedure: yes ?? Informed consent: ??Risks, benefits, alternatives discussed Patient's stated name/ matches armband: ??Yes Allergies confirmed: yes ?? Consent form signed, dated, timed; matches correct patient, intended procedure and site: ??No consent form due to emergent status Imaging: ??N/a Lab/Diag test results: ??N/a Supplies, devices and special equipment are available: yes ?? Site/side marked: yes ?? Type: ??Abscess Size: ??2 cm Location: ??Mouth Mouth location: left upper molar. Anesthesia method: ??Local infiltration Local anesthetic: ??Bupivacaine 0.5% (periapical block, 4 cc. Complete anesthesia) Needle aspiration: no ?? Incision types: ??Stab incision Incision depth: ??Dermal Scalpel blade: ??11 Wound management: ??Probed and deloculated Drainage: ??Bloody Drainage amount: ??Scant Wound treatment: ??Wound left open Packing materials: ??None Patient tolerance of procedure: ??Tolerated well, no immediate complications All guidewires, needles, sponges or other items are accounted for: yes ?? Any special post procedure monitoring, testing or other considerations: n/a ?? All specimens identified, labeled and matched to patient identification: n/a ?? Responsible republican for transporting specimen(s) to lab determined: n/a ?? us Brice Oconnell MD IN CLINIC/BEDSIDE ORDERABL ES Final Result documented in this encounter Visit Diagnoses Diagnosis Dental abscess- Primary Periapical abscess without sinus documented in this encounter Administered Medications Inactive Administered Medications - up to 3 most recent administrations Medication Order MAR Action Action Date Dose Rate Site bupivacaine (MARCAINE) 0.5 % (5 mg/mL) preservative free injection 50 mg 50 mg (10 mL), infiltration, Once, On Sat07/20/19 at 1924, For 1 dose Given 07/20/2019 8:05 PM APPLIANCE FIXER 50 mg penicillin v potassium (VEETID) tablet 500 mg 500 mg, oral, Once, On Sat07/20/19 at 1924, For 1 dose, Administer on an empty stomach, Indications: Upper Respiratory/HEENT InfectionIndications:Upper Respiratory/HEENT Infection Given 07/20/2019 7:39 PM APPLIANCE FIXER 500 mg documented in this encounter Discontinued Medications Medication Sig Discontinue Reason Start Date End Da te penicillin v potassium (VEETID) 500 mg tabletIndications:Upper Respiratory/HEENT Infection Take 1 tablet (500 mg total) by mouth 2 (two) times a day for 7 days Reorder 07/20/2019 07/20/2019 documented as of this encounter Active and Recently Administered Medications Times are shown in APPLIANCE FIXER. Scheduled Medication Order 07/18/2019 07/19/2019 07/20/2019 bupivacaine (MARCAINE) 0.5 % (5 mg/mL) preservative free injection 50 mg (COMPLETED) 50 mg (10 mL), infiltration, Once, On 07/20/19 at 1924, For 1 dose 2004 (Given - Provid er: Shanon Tam RN - Comment: given by provider) penicillin v potassium (VEETID) tablet 500 mg (COMPLETED) 500 mg, oral, Once, On 07/20/19 at 1924, For 1 dose, Administer on an empty stomach, Indications: Upper Respiratory/HEENT Infection 1938 (Given - Provid er: Nubia Baltazar RN) documented in this encounter Care Teams Bisque Kiln Placer Relationship Specialty Start Date End Date Damian Sadler MD PCP - General 11/29/16 05/18/22 documented as of this encounter
--- OUTSIDE RECORDS SUMMARY | 2024-08-17 01:55 | XMS_ITS | Encounter Summary ---
Author Organization [facility] Healthcare Address [address] [place] [address] Care Team Providers Care Automotive Parts Counterperson Name Role Phone Damian Sadler MD Primary Care Provider [phone] Encounter Details Date Type Department Care Team (Late st Contact Info) Description 05/22/2018 Telephone [facility] Emergency Department [address] [place] [address] Destinee Mcgrath, CARLO [address] [place] [address] Social History Tobacco Use Types Packs/Day Years Used Date Smoking Tobacco: Every Day Cigarettes Smokeless Tobacco: Never Alcohol Use Standard Drinks/Week Comments No 0 (1 standard drink = 0.6 oz pur e alcohol) Comments No Sex and Gender Information Value Date Recorded Sex Assigned at Not on file Legal Sex Female 9:06 PM REFRIGERATION PLANT CORK INSULATOR Gender Identity Female 10/01/2023 8:44 AM REFRIGERATION PLANT CORK INSULATOR Sexual Orientation Straight 10/01/2023 8: 44 AM REFRIGERATION PLANT CORK INSULATOR documented as of this encounter Plan of Treatment Not on file documented as of this encounter Visit Diagnoses Not on filedocumented in this encounter Care Teams Automotive Parts Counterperson Relationship Specialty Start Date End Date Damian Sadler MD PCP - General 11/29/16 05/18/22 documented as of this encounter
--- OUTSIDE RECORDS SUMMARY | 2024-08-17 01:55 | XMS_ITS | Encounter Summary ---
Author Organization [facility] Healthcare Address [address] [place] [address] Care Team Providers Care Front Desk Host Name Role Phone Damian Sadler MD Primary Care Provider Reason for Visit * Reason Comments Flank Pain Encounter Details Date Type Department Care Team (Late st Contact Info) Description 11/08/2017 9:15 AM CDT - 11/08/2017 10:58 AM CDT Emergency [facility] Emergency Department [address] [place] [address] Anaid Hidalgo MD [address] [place] [address] Acute right flank pain (Primary Dx) Discharge Disposition: Discharge to home or self care Social History Tobacco Use Types Packs/Day Years Used Date Smoking Tobacco: Every Day Cigarettes Smokeless Tobacco: Never Comments No Sex and Gender Information Value Date Recorded Sex Assigned at Not on file Legal Sex Female 9:06 PM MAGNETO ELECTRICIAN Gender Identity Female 10/01/2023 8:44 AM MAGNETO ELECTRICIAN Sexual Orientation Straight 10/01/2023 8: 44 AM MAGNETO ELECTRICIAN documented as of this encounter Last Filed Vital Signs Vital Sign Reading Time Taken Comments Blood Pressure 133/104 11/08/2017 9:35 AM CDT Pulse 97 11/08/2017 9:35 AM CDT Temperature 36.8 ??C (98.3 ??F) 11/08/2017 9:35 AM CD T Respiratory Rate 20 11/08/2017 9:35 AM CDT Oxygen Saturation 98% 11/08/2017 9:35 AM CDT Inhaled Oxygen Concentration - - Weight 77.1 kg (170 lb) 11/08/2017 9:35 AM CDT Height 160 cm (5' 3 ) 11/08/2017 9:35 AM CDT Body Mass Index 30.11 11/08/2017 9:35 AM CDT documented in this encounter Discharge Instructions * Discharge Instructions* Anaid Hidalgo MD - 11/08/2017 10:31 AM CDT Drink plenty of clear liquids. Use Zofran and hydrocodone as directed for nausea and pain as needed. * Attachments The following attachments cannot be sent through Care Everywhere. * Abdominal Pain, Unknown Cause, (Female) (Georgian) documented in this encounter Medications at Time of Discharge MULTIVIT-MINERALS/FE RROUS FUM (MULTI VITAMIN ORAL)Indications:hea lth Take 1 tablet by mouth director of early childhood education 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 omeprazole (PriLOSEC) 20 mg capsuleIndications:T reatment of Non-Bleeding Gastric Disorder Take 1 capsule (20 mg total) by mouth director of early childhood education 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 HYDROcodone-acetamin ophen (NORCO) 5-325 mg per tabletIndications:Pa in Take 1-2 tablets by mouth every 4 (four) hours as needed for pain (1 tablet for mild to moderate pain or 2 tablets for severe pain). Do not exceed 8 tablets/day. 20 tablet 11/08/2017 8 lisinopril (PRINIVIL,ZESTRIL) 20 mg tablet Take 20 mg by mouth daily. 2 ondansetron ODT (ZOFRAN-ODT) 4 mg disintegrating tablet Dissolve 1 tablet for mild to moderate nausea or vomiting or 2 tablets for severe nausea or vomiting oral twice a day as needed. 15 tablet 11/08/2017 8 documented as of this encounter Ordered Prescriptions Prescription Sig Dispense Quantity Refills Last Filled Start Date End Date ondansetron ODT (ZOFRAN-ODT) 4 mg disintegrating tablet Dissolve 1 tablet for mild to moderate nausea or vomiting or 2 tablets for severe nausea or vomiting oral twice a day as needed. 15 tablet 11/08/2017 8 HYDROcodone-acetamin ophen (NORCO) 5-325 mg per tabletIndications:Pa in Take 1-2 tablets by mouth every 4 (four) hours as needed for pain (1 tablet for mild to moderate pain or 2 tablets for severe pain). Do not exceed 8 tablets/day. 20 tablet 11/08/2017 8 documented in this encounter Discharge Disposition Disposition Code Departure Means Destination Comment s Discharge to home or self care Pt ambulatory to Nuc med for test with this RN. NAD. IV lock left in place for scan documented in this encounter ED Notes * Kristi Lilly RN - 11/08/2017 10:58 AM CDT Pt c/o right flank pain non radiating. Pt has hx of kidney stones and sees a urologist. 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 ERP at bedside for eval * Anaid Hidalgo MD - 11/08/2017 9:23 AM CDT HPI Chief Complaint Patient presents with ??? Flank Pain HPI 9:25 AM Renee Luke is a 37 y.o. female with a history of hypertension, presenting to the ED c/o right flank pain that began yesterday, but worsened today. Her pain is described as squeezing/spasming in nature. Patient states she has a history of kidney stones and reports her current pain is similar to kidney stones she has had in the past. She reports additional symptoms of nausea and decreasedurine output. She denies fever or hematuria. Patient has taken Ibuprofen and Flomax with mild relief of her symptoms. Patient History Past Medical History: Diagnosis Date ??? Hypertension Past Surgical History: Procedure Laterality Date ??? SECTION ??? HYSTERECTOMY ??? KIDNEY SURGERY History reviewed. No pertinent family history. Social History Substance Use Topics ??? Smoking status: Current Every Day Smoker Packs/day: 0.50 ??? Smokeless tobacco: Never Used ??? Alcohol use Not on file Review of Systems Review of Systems Constitutional: Negative for chills, fatigue and fever. HENT: Negative for congestion, ear pain, rhinorrhea, sneezing and sore throat. Respiratory: Negative for cough, shortness of breath and wheezing. Cardiovascular: Negative for chest pain and palpitations. Gastrointestinal: Positive for nausea. Negative for abdominal pain, constipation, diarrhea and vomiting. Genitourinary: Positive for difficulty urinating and flank pain. Negative for frequency and hematuria. Musculoskeletal: Negative for arthralgias, back pain, myalgias and neck pain. Skin: Negative for color change, pallor, rash and wound. Neurological: Negative for dizziness, syncope, weakness, light-headedness and headaches. All other systems reviewed and are negative. Physical Exam ED Triage Vitals Temp Pulse Resp BP SpO2 -- -- -- -- -- Temp src Heart Rate Source Patient Position BP Location FiO2 (%) -- -- -- -- -- Physical Exam Constitutional: She is oriented to person, place, and time. She appears well- developed and well-nourished. No distress. HENT: Head: Normocephalic and atraumatic. Mouth/Throat: Oropharynx is clear and moist. Eyes: Conjunctivae and EOM are normal. Right eye exhibits no discharge. Left eye exhibits no discharge. Neck: Normal range of motion. Neck supple. Cardiovascular: Normal rate, regular rhythm, normal heart sounds and intact distal pulses. Exam reveals no gallop and no friction rub. No murmur heard. Pulmonary/Chest: Effort normal and breath sounds normal. No respiratory distress. She has no wheezes. She has no rales. Abdominal: Soft. She exhibits no distension and no mass. Bowel sounds are decreased. There is tenderness (right flank ). No hernia. Musculoskeletal: Normal range of motion. She exhibits no edema, tenderness or deformity. Neurological: She is alert and oriented to person, place, and time. Skin: Skin is warm and dry. Capillary refill takes less than 2 seconds. No rash noted. No erythema.No pallor. Psychiatric: She has a normal mood and affect. Her behavior is normal. Nursing note and vitals reviewed. Procedures ED Course & MDM Labs Reviewed CBC WITH AUTO DIFFERENTIAL - Abnormal Result Value WBC 7.4 RBC 5.10 Hgb 15.9 (*) Hct 43.1 MCV 84.5 MCH 31.2 MCHC 36.9 (*) RDW CV 11.8 RDW SD 35.8 Platelets 278 MPV 9.5 NRBC Abs 0.00 Narrative: BASIC METABOLIC PANEL - Abnormal Sodium 139 Potassium 3.7 Chloride 104 CO2 21 (*) BUN 9 Glucose 109 Creatinine 0.60 Calcium 9.6 Anion Gap 14 Narrative: URINALYSIS AND REFLEX TO MICROSCOPIC AND CULTURE Color, ur Yellow Clarity, ur Clear Specific gravity, ur 1.016 pH, ur 6.0 Protein, ur Negative Glucose, ur Negative Ketones, ur Negative Bilirubin, ur Negative Blood, ur Negative Urobilinogen, ur 0.2 Nitrites, ur Negative Leukocyte esterase, ur Negative Narrative: HCG, URINE, QUALITATIVE HCG, ur Negative Narrative: DIFFERENTIAL AUTO Neutrophils 64.2 Immature granulocytes 0.1 Lymphocytes 24.7 Monos 9.6 Eosinophils 0.9 Basophils 0.5 Neutrophil absolute 4.72 Immature granulocyte, abs 0.01 Lymphocytes, abs 1.82 Monos, abs 0.71 Eosinophils, abs 0.07 Basophils, abs 0.04 Narrative: EGFR GFR >60 Narrative: No orders to display BP 129/94 (Patient Position: Sitting) Pulse 96 Temp 36.8 ??C (98.3 ??F) (Temporal) Resp 18 Ht 160 cm (5' 3 ) Wt 77.1 kg (170 lb) SpO2 100% BMI 30.11 kg/m?? [facility] ED Course as of Nov 08 2130SatNov 08, 2017 1019 Urine is clear, WBC normal. Will discharge home to have nuc med study. [AD] [address] Holliday, urology, states patient has a history of kidney stones and suspects patient may have a right UPJ obstruction. He reviewed records and states patient had a negativeCT earlier this month to evaluate her complaint of right flank pain. He recommends she have a nuclear medicine mag 3 with lasix wash out. Contacted nuc med and state they can do this test today as outpatient [AD] 0614 Pre-hypertension/Hypertension: The patient has been informed that they may have pre-hypertension or Hypertension based on a blood pressure reading in the Emergency Department. I recommend that the patient call the primary care provider listed on their discharge instructions or a physician of their choice this week to arrange follow up for further evaluation of possible pre- hypertension or Hypertension. BP: (!) 133/104 [AD] ED Course User Index [AD] Viraj Peraza scribed for Anaid Hidalgo MD in the doctor's presence. I electronically signed this note at 9:31 PM on 11/08/2017. I, Anaid Hidalgo MD, have personally performed the services described in the documentation , reviewed the documentation, as recorded by the scribe in my presence, and it accurately and completely records my words and actions. Clinical Impression: Acute right flank pain Anaid Hidalgo MD 11/08/172130 Anaid Hidalgo MD 11/08/172132 documented in this encounter Plan of Treatment Not on file documented as of this encounter Procedures Procedure Name Priority Date/Time Associated Diagnosis Comments URINALYSIS AND REFLEX TO MICROSCOPIC AND CULTURE STAT 11/08/2017 10:04 AM CDT HCG, URINE, QUALITATIVE STAT 11/08/2017 10:04 AM CDT EGFR STAT 11/08/2017 9:42 AM CDT DIFFERENTIAL AUTO STAT 11/08/2017 9:4 2 AM CDT CBC WITH AUTO DIFFERENTIAL STAT 11/08/2017 9:42 AM CDT BASIC METABOLIC PANEL STAT 11/08/2017 9:42 AM CDT DISCHARGE LABORATORY CUMULATIVE REPORT 11/08/2017 12:00 AM CDT documented in this encounter Results * HCG, urine, qualitative (11/08/2017 10:04 AM CDT) HCG, ur Negative Negative [facility] ([place]) Urine 11/08/2017 10:0 4 AM CDT 11/08/2017 10:06 AM CDT Narrative [facility] ([place]) - 11/08/2017 10:46 AM CDT us Anaid Hidalgo MD LAB URINE ORDERABLES Final Result Performing Organization Address [facility] Co de Phone Number [facility] ([place]) 1 [facility] [employer] [place] [address] * Urinalysis reflex to microscopic and culture (11/08/2017 10:04 AM CDT) Color, ur Yellow Yellow [facility] ([place]) Clarity, ur Clear Clear [facility] ([place]) Specific gravity, ur 1.016 1.003 - 1.030 [facility] ([place]) Comment:Normal Ranges: 1.003 -1.030 pH, ur 6.0 4.5 - 8.0 [facility] ([place]) Comment:Normal ranges: 4.5-8 .0 Protein, ur ql Negative Negative mg/dL [facility] ([place]) Glucose, ur ql Negative Negative mg/dL [facility] ([place]) Ketones, ur Negative Negative [facility] ([place]) Bilirubin, ur Negative Negative [facility] ([place]) Blood, ur Negative Negative [facility] ([place]) Urobilinogen, ur 0.2 0.2 - 1.0 EhrUnit/dL [facility] ([place]) Comment:Normal Ranges: 0.2-1 .0 EU/dL Nitrites, ur Negative Negative [facility] ([place]) Leukocyte esterase, ur Negative Negative [facility] ([place]) Urine 11/08/2017 10:0 4 AM CDT 11/08/2017 10:06 AM CDT Narrative [facility] ([place]) - 11/08/2017 10:12 AM CDT us Anaid Hidalgo MD LAB MICROBIOLOGY - GENERAL ORDERABLES Final Result Performing Organization Address [facility] Co de Phone Number [facility] ([place]) 1 [facility] [place] [address] * eGFR (11/08/2017 9:42 AM CDT) eGFR >60 mL/min/1.7 3 m2 [facility] ([place]) Comment: Interpretive Data Reference Interval Normal ?>/= 90 mL/min/1.73m2 Mildly decreased* ? 60 - 89 mL/min/1.73m2 Mildly to moderately decreased ?45 - 59 mL/min/1.73m2 Moderately to severely decreased ??30 - 44 mL/min/1.73m2 Severely decreased ?15 - 29 mL/min/1.73m2 Kidney Failure ?< 15 ??mL/min/1.73m2 *Relative to young adult level If -Guyanese multiply value by 1.16. Estimated glomerular filtration rate is determined by the CKD-EPI equation recommended by the National Kidney Foundation (KDIGO 2012 Clinical Practice Guideline for the Evaluation and Management of Chronic Kidney Disease. Kidney Intnl Suppl Aug 2012;3:1). The CKD-EPI equation should not be used for patients with unstable renal function and has not been validated in children and those over 70. Current interpretive data was last reviewed 2016. Blood specimen (specimen) 11/08/2017 9:42 AM CDT 11/08/2017 9:46 AM CDT Narrative [facility] ([place]) - 11/08/2017 10:01 AM CDT us Anaid Hidalgo MD LAB BLOOD ORDERABLES Final Result [facility] ([place]) 1 [facility] [place] [address] * Differential, auto (11/08/2017 9:42 AM CDT) Neutrophil pct 64.2 44.0 - 80.0 % [facility] ([place]) Imm gran pct 0.1 0.0 - 1.0 % [facility] ([place]) Lymphocyte pct 24.7 13.0 - 44.0 % [facility] ([place]) Monocyte pct 9.6 2.0 - 11.0 % [facility] ([place]) Eosinophil pct 0.9 0.0 - 6.0 % [facility] ([place]) Basophil pct 0.5 0.0 - 3.0 % [facility] ([place]) Neutrophil abs 4.72 1.60 - 7.00 K/cumm [facility] ([place]) Imm gran abs 0.01 0.00 - 0.20 K/cumm [facility] ([place]) Lymphocyte abs 1.82 0.50 - 4.30 K/cumm [facility] ([place]) Monocyte abs 0.71 0.10 - 1.00 K/cumm [facility] ([place]) Eosinophil abs 0.07 0.00 - 0.60 K/cumm [facility] ([place]) Basophil abs 0.04 0.00 - 0.30 K/cumm [facility] ([place]) Blood specimen (specimen) 11/08/2017 9:42 AM CDT 11/08/2017 9:46 AM CDT Narrative [facility] ([place]) - 11/08/2017 9:56 AM CDT us Anaid Hidalgo MD LAB BLOOD ORDERABLES Final Result [facility] ([place]) 1 [facility] Department [place] [address] * (ABNORMAL) Basic metabolic panel (11/08/2017 9:42 AM CDT) Sodium 139 135 - 145 mmol/L [facility] ([place]) Potassium, pl 3.7 3.3 - 4.9 mmol/L [facility] ([place]) Chloride 104 97 - 110 mmol/L [facility] ([place]) CO2 21(L) 22 - 32 mmol/L [facility] ([place]) BUN 9 8 - 25 mg/dL [facility] ([place]) Glucose 109 70 - 199 mg/dL [facility] ([place]) [...] Current interpretive data was last revised 2017. Creatinine 0.60 0.60 - 1.10 mg/dL [facility] ([place]) Calcium 9.6 8.5 - 10.3 mg/dL [facility] ([place]) Anion gap 14 2 - 15 mmol/L [facility] ([place]) Blood specimen (specimen) 11/08/2017 9:42 AM CDT 11/08/2017 9:46 AM CDT Narrative [facility] ([place]) - 11/08/2017 10:01 AM CDT us Anaid Hidalgo MD LAB BLOOD ORDERABLES Final Result [facility] ([place]) 1 [facility] Department [place] [address] * (ABNORMAL) CBC with auto differential (11/08/2017 9:42 AM CDT) WBC 7.4 3.8 - 9.9 K/cumm [facility] ([place]) RBC 5.10 3.90 - 5.20 M/cumm [facility] ([place]) Hgb 15.9(H) 11.9 - 15.5 g/dL [facility] ([place]) Hct 43.1 35.6 - 45.5 % [facility] ([place]) MCV 84.5 81.3 - 96.4 fL [facility] ([place]) MCH 31.2 27.1 - 33.3 pg [facility] ([place]) MCHC 36.9(H) 32.3 - 35.7 g/dL [facility] ([place]) RDW CV 11.8 11.1 - 14.9 % [facility] ([place]) RDW SD 35.8 35.7 - 48.1 fL [facility] ([place]) Plt 278 150 - 400 K/cumm [facility] ([place]) MPV 9.5 9.1 - 12.3 fL [facility] ([place]) NRBC abs 0.00 0.00 - 0.01 K/cumm [facility] ([place]) Blood specimen (specimen) 11/08/2017 9:42 AM CDT 11/08/2017 9:46 AM CDT Narrative [facility]) - 11/08/2017 9:56 AM CDT Anaid Hidalgo MD LAB BLOOD ORDERABLES Final Result [facility]) 1 [facility] Department [place] [address] * DISCHARGE LABORATORY CUMULATIVE REPORT (11/08/2017 12:00 AM CDT) Narrative 11/08/2017 12:00 AM CDT Ordered by an unspecified provider. Historical Provider LAB BLOOD ORDERABLES Sandra l Result documented in this encounter Visit Diagnoses Diagnosis Acute right flank pain- Primary documented in this encounter Administered Medications Inactive Administered Medications - up to 3 most recent administrations Medication Order MAR Action Action Date Dose Rate Site HYDROcodone-acetaminophen (NORCO) 5-325 mg per tablet 1 tablet 1 tablet, oral, Once, On Sat11/08/17 at 1030, For 1 dose, Indications: PainIndications:Pain Given 11/08/2017 10:32 AM CDT 1 tablet HYDROcodone-acetaminophen (NORCO) 5-325 mg per tablet 1 tablet 1 tablet, oral, Once, On Sat11/08/17 at 1030, For 1 dose, Indications: PainIndications:Pain Given 11/08/2017 10:32 AM CDT 1 tablet morphine injection 4 mg 4 mg, intravenous, Once, On Sat11/08/17 at 0945, For 1 dose Given 11/08/2017 9:51 AM CDT 4 mg Right Hand ondansetron ODT (ZOFRAN-ODT) disintegrating tablet 4 mg 4 mg, sublingual, Once, On Sat11/08/17 at 0945, For 1 dose Given 11/08/2017 9:50 AM CDT 4 mg sodium chloride 0.9% bolus 1,000 mL 1,000 mL, intravenous, at 1,000 mL/hr, Administer over 1 Hours, Once, On Sat11/08/17 at 0945, For 1 dose New Bag 11/08/2017 9:55 AM CDT 1,000 mL 1000 mL/hr documented in this encounter Historical Medications * This list may reflect changes made after this encounter. MULTIVIT-MINERAL S/FERROUS FUM (MULTI VITAMIN ORAL)Indications :health Take 1 tablet by mouth director of early childhood education 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 omeprazole (PriLOSEC) 20 mg capsuleIndicatio ns:Treatment of Non-Bleeding Gastric Disorder Take 1 capsule (20 mg total) by mouth director of early childhood education 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 lisinopril (PRINIVIL,ZESTRI L) 20 mg tablet Take 20 mg by mouth daily. 2 added in this encounter Active and Recently Administered Medications Times are shown in CDT. Scheduled Medication Order 11/06/2017 11/07/2017 11/08/2017 HYDROcodone-acetaminophen (NORCO) 5-325 mg per tablet 1 tablet (COMPLETED) 1 tablet, oral, Once, On Sat11/08/17 at 1030, For 1 dose, Indications: Pain 1032 (Given - Provid er: Joaquin Langley RN) HYDROcodone-acetaminophen (NORCO) 5-325 mg per tablet 1 tablet (COMPLETED) 1 tablet, oral, Once, On Sat11/08/17 at 1030, For 1 dose, Indications: Pain 1032 (Given - Provid er: Joaquin Langley RN) morphine injection 4 mg (COMPLETED) 4 mg, intravenous, Once, On Sat11/08/17 at 0945, For 1 dose 0951 (Given - Provid er: Joaquin Langley RN) ondansetron ODT (ZOFRAN-ODT) disintegrating tablet 4 mg (COMPLETED) 4 mg, sublingual, Once, On Sat11/08/17 at 0945, For 1 dose 0950 (Given - Provid er: Joaquin Langley RN) sodium chloride 0.9% bolus 1,000 mL (COMPLETED) 1,000 mL, intravenous, at 1,000 mL/hr, Administer over 1 Hours, Once, On Sat11/08/17 at 0945, For 1 dose 0955 (New Bag - Prov ider: Joaquin Langley RN - Comment: Alarus pump)1100 (Stopped - Provider: Kristi Lilly RN) documented in this encounter Orders Medications Ordered That Noe ht Not Have Been Administered Count Last Ordered Date First Ordered Date ondansetron (ZOFRAN) injection 4 mg 1 11/08 IV Count Last Ordered Date First Orde red Date INSERT PERIPHERAL IV 1 11/08/2017 documented in this encounter Care Teams Front Desk Host Relationship Specialty Start Date End Date Damian Sadler MD PCP - General 11/29/16 05/18/22 documented as of this encounter
--- OUTSIDE RECORDS SUMMARY | 2024-08-17 01:55 | XMS_ITS | Encounter Summary ---
Author Organization [facility] Care Team Providers Care Director Of Operations Name Role Phone Damian Sadler MD Primary Care Provider [phone] Encounter Details Date Type Department Care Team (Latest Contact Info) Description 06/05/2019 Travel Social History Tobacco Use Types Packs/Day Years Used Date Smoking Tobacco: Every Day Cigarettes Smokeless Tobacco: Never Alcohol Use Standard Drinks/Week Comments No 0 (1 standard drink = 0.6 oz pur e alcohol) Comments No Sex and Gender Information Value Date Recorded Sex Assigned at Not on file Legal Sex Female 9:06 PM TEST DESK SUPERVISOR Gender Identity Female 10/01/2023 8:44 AM TEST DESK SUPERVISOR Sexual Orientation Straight 10/01/2023 8: 44 AM TEST DESK SUPERVISOR documented as of this encounter Plan of Treatment Not on file documented as of this encounter Visit Diagnoses Not on filedocumented in this encounter Care Teams Director Of Operations Relationship Specialty Start Date End Date Damian Sadler MD PCP - General 11/29/16 05/18/22 documented as of this encounter
--- OUTSIDE RECORDS SUMMARY | 2024-08-17 01:55 | XMS_ITS | Encounter Summary ---
Author Organization [facility] Healthcare Address [address] [place] [address] Care Team Providers Care New Car Sales Manager Name Role Phone Damian Sadler MD Primary Care Provider [phone] Encounter Details Date Type Department Care Team (Late st Contact Info) Description 05/25/2018 Telephone [facility] Emergency Department [address] [place] [address] Brianna Novak RN Social History Tobacco Use Types Packs/Day Years Used Date Smoking Tobacco: Every Day Cigarettes Smokeless Tobacco: Never Alcohol Use Standard Drinks/Week Comments No 0 (1 standard drink = 0.6 oz pur e alcohol) Comments No Sex and Gender Information Value Date Recorded Sex Assigned at Not on file Legal Sex Female 9:06 PM REINSURANCE CLAIMS ANALYST Gender Identity Female 10/01/2023 8:44 AM REINSURANCE CLAIMS ANALYST Sexual Orientation Straight 10/01/2023 8: 44 AM REINSURANCE CLAIMS ANALYST documented as of this encounter ED Notes * Brianna Novak RN - 05/25/2018 8:17 AM CDT After multiple attempts to contact pt by phone, certified letter sent to address list on facesheet.Cert letter #[id number] [phone] Brianna Novak RN 05/25/18 0819 documented in this encounter Miscellaneous Notes * Telephone Encounter - Brianna Novak RN - 05/25/2018 8:16 AM CDT ----- Message from Destinee Mcgrath NP sent at 05/22/2018 2:07 PM CDT ----- Attempted to contact regarding urine culture. Need to contact and obtain pharmacy info. Call in Nitrofurantoin 100 mg PO BID x 5 days. documented in this encounter Plan of Treatment Not on file documented as of this encounter Visit Diagnoses Not on filedocumented in this encounter Care Teams New Car Sales Manager Relationship Specialty Start Date End Date Damian Sadler MD PCP - General 11/29/16 05/18/22 documented as of this encounter
--- OUTSIDE RECORDS SUMMARY | 2024-08-17 01:55 | XMS_ITS | Encounter Summary ---
Author Organization [facility] Healthcare Address [address] [place] [address] Care Team Providers Care Millroom Supervisor Name Role Phone Unavailable Primary Care Provider Unavailabl e Encounter Details Date Type Department Care Team (Late st Contact Info) Description 04/19/2016 5:06 PM CDT - 04/19/2016 8:10 PM CDT Hospital Encounter [facility] Tripp Seth MD [address] [place] [address] Abdominal pain Social History Tobacco Use Types Packs/Day Years Used Date Smoking Tobacco: Never Assessed Comments Unknown Sex and Gender Information Value Date Recorded Sex Assigned at Not on file 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 Gender Identity Female 10/01/2023 8:44 AM ENVIRONMENTAL MARKETER Sexual Orientation Straight 10/01/2023 8: 44 AM ENVIRONMENTAL MARKETER documented as of this encounter Last Filed Vital Signs Vital Sign Reading Time Taken Comments Blood Pressure 177/104 04/19/2016 5:07 PM CDT Pulse 74 04/19/2016 5:07 PM CDT Temperature 37 ??C (98.6 ??F) 04/19/2016 5:07 PM CDT Respiratory Rate - - Oxygen Saturation 100% 04/19/2016 5:07 PM CDT Inhaled Oxygen Concentration - - Weight 74.8 kg (165 lb) 04/19/2016 5:07 PM CDT Height 160 cm (5' 3 ) 04/19/2016 5:07 PM CDT Body Mass Index 29.23 04/19/2016 5:07 PM CDT documented in this encounter Plan of Treatment Not on file documented as of this encounter Procedures Procedure Name Priority Date/Time Associated Diagnosis Comments CBC WITH AUTO DIFFERENTIAL Routine 04/19/2016 5:21 PM CDT APTT Routine 04/19/2016 5:21 PM CDT PROTIME-INR Routine 04/19/2016 5:21 PM CDT LIPASE Routine 04/19/2016 5:21 PM CDT COMPREHENSIVE METABOLIC PANEL Routine 04/19/2016 5:21 PM CDT URINALYSIS AND REFLEX TO MICROSCOPIC AND CULTURE Routine 04/19/2016 5:[address] ABDOMEN PELVIS W CONTRAST Routine 04/19/2016 5:11 PM CDT documented in this encounter Results * Protime-INR (04/19/2016 5:21 PM CDT) PT 13.5 11.8 - 14.5 SECONDS 04/19/2016 5:55 PM CDT [facility] HISTORICAL RESULTS INR 1.02 0.01 - 5.99 04/19/2016 5:55 PM CDT [facility] HISTORICAL RESULTS Comment: Recommended Therapeutic range for Oral Anticoagulant Therapy No anti-coagulation therapy ? Normal Range: ?0.8-1.4 Anti-coagulation therapy ? Low intensity therapy ?2.0-3.0 ? High intensity therapy ?? 2.5-3.5 Critical Value ? Greater than or equal to 6.0 Patients should be monitored for serious bleeding. ?? 04/19/2016 5:21 PM CDT 04/19/2016 5:23 PM CDT us Historical Provider LAB BLOOD ORDERABLES Sandra clifton Result [facility] HISTORICAL RESULTS * aPTT (04/19/2016 5:21 PM CDT) APTT 27 26 - 33 SECONDS 04/19/2016 5:57 PM T [facility] HISTORICAL RESULTS 04/19/2016 5:21 PM CDT 04/19/2016 5:23 PM CDT Historical Provider LAB BLOOD ORDERABLES Sandra l Result Performing Organization Address [facility] Co de Phone Number [facility] HISTORICAL RESULTS * Lipase (04/19/2016 5:21 PM CDT) Pathologist [facility] Lipase 47 13 - 60 U/L 04/19/2016 6:30 PM T [facility] HISTORICAL RESULTS 04/19/2016 5:21 PM CDT 04/19/2016 5:23 PM CDT Historical Provider LAB BLOOD ORDERABLES Sandra l Result Performing Organization Address [facility] de Phone Number [facility] HISTORICAL RESULTS * (ABNORMAL) Comprehensive metabolic panel (04/19/2016 5:21 PM CDT) Pathologist [facility] Sodium 143 135 - 145 mmol/L Potassium 4.1 3.3 - 5.1 mmol/L Chloride 102 96 - 108 mmol/L Carbon Dioxide 24 22 - 32 mmol/L Anion Gap 17(H) 7 - 16 Glucose 76 70 - 100 mg/dL BUN 9 6 - 20 mg/dL Creatinine 0.6 0.5 - 1.1 mg/dL Comment: NOTE: Estimated GFR (Cockroft-Gault) will NOT be calculated unless patient Height and Weight were entered. Also, Kidney Disease Stage (GFR) and Estimated GFR (Cockroft-Gault) will NOT be calculated if Creatinine result is <0.2. Kidney Disease Stage > 90 mL/MIN Comment: NOTE; ??The GFR is an estimated value using the creatinine, sex, age, and race of the patient. THE ESTIMATED GFR IS VALIDATED FOR AGES 18-70 YEARS STAGE ?mL/Min ?DESCRIPTION ??1 ?90 mL/min or more ?Normal or elevated GFR ??2 ? 60-89 mL/min ?Mildly decreased GFR ??3 ? 30-59 mL/min ?Moderately decreased GFR ??4 ? 15-29 mL/min ?Severely decreased GFR ??5 ? <15 mL/min ? Kidney failure or on dialysis @ Est GFR (Cockcroft-G) 124 ml/MIN Calcium 9.2 8.6 - 10.0 mg/dL Total Protein 7.7 6.4 - 8.3 g/dL Albumin 4.6 3.5 - 5.2 g/dL Globulin 3.1 2.3 - 3.5 gm/dL Albumin/Globulin Ratio 1.5 1.1 - 1.8 Total Bilirubin 0.3 0.0 - 1.2 mg/dL 04/19/2016 6:30 PM CDT [facility] HISTORICAL RESULTS AST 25 0 - 32 U/L 04/19/2016 6:30 PM T [facility] HISTORICAL RESULTS ALT 40(H) 0 - 33 U/L 04/19/2016 6:30 PM CDT [facility] HISTORICAL RESULTS Alkaline Phosphatase 85 35 - 104 U/L 04/19/2016 6:30 PM T [facility] HISTORICAL RESULTS 04/19/2016 5:21 PM CDT 04/19/2016 5:23 PM CDT us Historical Provider LAB BLOOD ORDERABLES Sandra clifton Result [facility] HISTORICAL RESULTS * CBC with auto differential (04/19/2016 5:21 PM CDT) WBC 8.4 4.6 - 10.2 x10 3/ul 04/19/2016 5:27 PM T [facility] HISTORICAL RESULTS RBC 4.75 3.76 - 4.80 x10 6/ul 04/19/2016 5:27 PM T [facility] HISTORICAL RESULTS Hemoglobin 14.3 11.0 - 15.0 g/dl 04/19/2016 5:27 PM T [facility] HISTORICAL RESULTS Hct 40.7 33.0 - 43.0 % 04/19/2016 5:27 PM T [facility] HISTORICAL RESULTS MCV 85.7 80.0 - 97.0 fl 04/19/2016 5:27 PM T [facility] HISTORICAL RESULTS MCH 30.1 27.0 - 31.2 pg 04/19/2016 5:27 PM T [facility] HISTORICAL RESULTS MCHC 35.1 31.8 - 35.4 g/dl 04/19/2016 5:27 PM T [facility] HISTORICAL RESULTS RDW 11.9 11.6 - 14.8 % 04/19/2016 5:27 PM T [facility] HISTORICAL RESULTS Plt Count 273 124 - 400 x10 3/ul 04/19/2016 5:27 PM T [facility] HISTORICAL RESULTS MPV 9.1 7.4 - 10.4 fl 04/19/2016 5:27 PM T [facility] HISTORICAL RESULTS Neut % 55.7 37.0 - 85.0 % Immature Gran % 0.2 0.0 - 3.0 % Lymph % 32.9 5.0 - 45.0 % 04/19/2016 5:27 PM T [facility] HISTORICAL RESULTS [place] % 8.6 3.0 - 15.0 % Eos % 2.2 0.0 - 7.0 % Baso % 0.4 0.0 - 2.0 % Absolute Neuts (auto) 4.7 1.7 - 8.7 x10 3/ul Immature Gran # 0.0 0.0 - 0.3 x10 3/ul Absolute Lymphs (auto) 2.8 0.2 - 4.6 x10 3/ul Absolute Monos (auto) 0.7 0.1 - 1.5 x10 3/ul Absolute Eos (auto) 0.2 0.0 - 0.7 x10 3/ul Absolute Basos (auto) 0.0 0.0 - 0.2 x10 3/ul 04/19/2016 5:21 PM CDT 04/19/2016 5:23 PM CDT us Historical Provider LAB BLOOD ORDERABLES Sandra l Result [facility] HISTORICAL RESULTS * (ABNORMAL) Urinalysis reflex to microscopic and culture (04/19/2016 5:15 PM T) Ur Collection Type CLEAN CATCH Ur Culture Indicated? C&S NOT INDICATED Urine Color YELLOW YELLOW Urine Clarity CLEAR CLEAR Urine Glucose (UA) NORMAL NORMAL mg/dL Urine Bilirubin NEGATIVE NEGATIVE mg/dl Urine Ketones NEGATIVE NEGATIVE mg/dL Ur Specific [place] 1.004(L) 1.005 - 1.025 Urine Blood NEGATIVE NEGATIVE mg/dl Urine pH 6.0 5.0 - 8.0 Urine Protein NEGATIVE NEGATIVE mg/dL Urine Urobilinogen NORMAL NORMAL mg/dL Urine Nitrite NEGATIVE NEGATIVE Ur Leukocyte Esterase NEGATIVE NEGATIVE Matilde/ul Ur Microscopic Review Indicated or Ordered Urine RBC <1 0 - 2 /HPF Urine WBC 1 0 - 2 /HPF Urine Bacteria Rare /HPF Ur Squamous Epith Cells Rare /HPF 04/19/2016 5:15 PM CDT 04/19/2016 5:30 PM CDT us Historical Provider LAB MICROBIOLOGY - GENERA L ORDERABLES Final Result [facility] HISTORICAL RESULTS * CT Abdomen Pelvis W Contrast (04/19/2016 5:11 PM CDT) Anatomical Region Laterality Modality Body N/A Computed Tomogra phy 04/19/2016 5:11 PM CDT Impressions 04/19/2016 7:48 PM CDT ?? 1. ??No urinary tract stone, obstruction or abnormal enhancement. ??Probable sub centimeter cyst in the right kidney. ??Perhaps a short-term follow-up non emergent renal ultrasound to ensure stability and presumed cyst etiology may be appropriate. 2. ??Mild diffuse hepatic steatosis. 3. ??Colonic diverticula with no acute diverticulitis. THIS IS AN ELECTRONICALLY VERIFIED REPORT 04/19/2016 7:44 PM: ??Carlyle Mayfield M.D. ?? Carlyle Mayfield M.D. RN:ed 07:44 PM 07:44 PM MON [EOD] Narrative 04/19/2016 7:48 PM CDT EXAMINATION: CT ABDOMEN AND PELVIS WITH IV CONTRAST HISTORY: Right-sided flank pain for last 2 days, worsening today with urinary frequency and decreased output. ??Concern for urinary tract stone or pyelonephritis. COMPARISON: ??No prior exam. TECHNIQUE: Patient received 100 mL Omnipaque 350 via left antecubital fossa venous catheter. FINDINGS: ??Lung bases are grossly clear. ??There is no appreciable urinary tract stone, obstruction or abnormal enhancement to suggest pyelonephritis. Sub-centimeter probable cyst in the right kidney is noted. Ureters and urinary bladder appear unremarkable. Mild diffuse hepatic steatosis. ??Gallbladder is unremarkable. ??Spleen is not enlarged. ??Pancreas and adrenal glands are normal. ??Uterus and right ovary are surgically absent and/or atrophic. ??Left ovary is unremarkable. ??There is no bowel obstruction or free air. ??The appendix is normal. ??Colonic diverticula with no acute diverticulitis noted. ?? There is no adenopathy or free fluid. ??No abdominal aortic aneurysm. ??Skeletal structures are grossly intact. ?? Procedure Note Provider, Margarita, - 12/27/2020 EXAMINATION: CT ABDOMEN AND PELVIS WITH IV CONTRAST HISTORY: Right-sided flank pain for last 2 days, worsening today withurinary frequency and decreased output. Concern for urinary tract stone or pyelonephritis. COMPARISON: No prior exam. TECHNIQUE: Patient received 100 mL Omnipaque 350 via left antecubitalfossa venous catheter. FINDINGS: Lung bases are grossly clear. There is no appreciable urinary tract stone, obstruction or abnormal enhancement to suggestpyelonephritis. Sub-centimeter probable cyst in the right kidney is noted. Ureters andurinary bladder appear unremarkable. Mild diffuse hepatic steatosis. Gallbladderis unremarkable. Spleen is not enlarged. Pancreas and adrenal glands are normal. Uterus and right ovary are surgically absent and/or atrophic.Left ovary is unremarkable. There is no bowel obstruction or free air. The appendix is normal. Colonic diverticula with no acute diverticulitisnoted. There is no adenopathy or free fluid. No abdominal aortic aneurysm.Skeletal structures are grossly intact. IMPRESSION: 1. No urinary tract stone, obstruction or abnormal enhancement. Probablesub centimeter cyst in the right kidney. Perhaps a short-term follow-up non emergent renal ultrasound to ensure stability and presumed cyst etiologymay be appropriate. 2. Mild diffuse hepatic steatosis. 3. Colonic diverticula with no acute diverticulitis. THIS IS AN ELECTRONICALLY VERIFIED REPORT 04/19/2016 7:44 PM: Carlyle Mayfield M.D. Carlyle Mayfield M.D. RN:ed 07:44 PM 07:44 PM MON [EOD] Historical Provider MD [facility] CT PROCEDURES Final R esult documented in this encounter Visit Diagnoses Diagnosis Abdominal pain Abdominal pain, unspecified site documented in this encounter
--- OUTSIDE RECORDS SUMMARY | 2024-08-17 01:55 | XMS_ITS | Encounter Summary ---
Author Organization [facility] Healthcare Address [address] [place] [address] Care Team Providers Care Statistical Secretary Name Role Phone Unavailable Primary Care Provider Unavailabl e Encounter Details Date Type Department Care Team (Latest Contact Info) Description 04/25/2016 9:44 AM CDT Hospital Encounter [facility] Tripp Seth MD [address] [place] [address] Acquired cyst of kidney Social History Tobacco Use Types Packs/Day Years Used Date Smoking Tobacco: Never Assessed Comments Unknown Sex and Gender Information Value Date Recorded Sex Assigned at Not on file 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 ??Probable tiny cyst on the right. ??Normal appearing parenchyma. THIS IS AN ELECTRONICALLY VERIFIED REPORT 04/25/2016 2:05 PM: ??Lucas Bal M.D. ?? Lucas Bal M.D. DA:da 02:05 PM 02:05 PM SCM [EOD] Narrative 04/25/2016 2:08 PM CDT EXAMINATION: ??Renal ultrasound. HISTORY: ??Abnormal findings on CT. COMPARISON: ??CT scan of abdomen and pelvis 04/19/16. TECHNIQUE: ??Transverse and longitudinal basilio scale imaging. ??Color flow. FINDINGS: ??The right kidney measures 12.0 x 4.7 x 4.9 cm. ??The cortex measures 1.35 cm. ??The left kidney measures 11.4 x 5.3 x 6.1 cm. ??The cortex measures 2 cm. ??No hydronephrosis in either kidney. ??There are bilateral ureteral jets demonstrated in the urinary bladder. ??There is a 5 mm sonolucent lesion in the right kidney posteriorly. ??This probably represents a tiny cyst. Procedure Note Provider, MD Margarita - 12/27/2020 EXAMINATION: Renal ultrasound. HISTORY: Abnormal findings on CT. COMPARISON: CT scan of abdomen and pelvis 04/19/16. TECHNIQUE: Transverse and longitudinal basilio scale imaging. Color flow. FINDINGS: The right kidney measures 12.0 x 4.7 x 4.9 cm. The cortexmeasures 1.35 cm. The left kidney measures 11.4 x 5.3 x 6.1 cm. The cortexmeasures 2 cm. No hydronephrosis in either kidney. There are bilateral ureteraljets demonstrated in the urinary bladder. There is a 5 mm sonolucent lesion inthe right kidney posteriorly. This probably represents a tiny cyst. IMPRESSION: Normal sized kidneys. Probable tiny cyst on the right.Normal appearing parenchyma. THIS IS AN ELECTRONICALLY VERIFIED REPORT 04/25/2016 2:05 PM: Lucas Bal M.D. Lucas Bal M.D. DA:milly 02:05 PM 02:05 PM SCM [EOD] Tripp Seth MD [facility] PROCEDURES Fin al Result documented in this encounter Visit Diagnoses Diagnosis Acquired cyst of kidney documented in this encounter
--- OUTSIDE RECORDS SUMMARY | 2024-08-17 01:55 | XMS_ITS | Encounter Summary ---
Author Organization [facility] Healthcare Address [address] [place] [address] Care Team Providers Care Conservation Officer Name Role Phone Damian Sadler MD Primary Care Provider Encounter Details Date Type Department Care Team (Late st Contact Info) Description 09/24/2018 Telephone [facility] [address] [place] [address] [address] [place] [address] Huma Hensley Social History Tobacco Use Types Packs/Day Years Used Date Smoking Tobacco: Every Day Cigarettes Smokeless Tobacco: Never Alcohol Use Standard Drinks/Week Comments No 0 (1 standard drink = 0.6 oz pur e alcohol) Comments No Sex and Gender Information Value Date Recorded Sex Assigned at Not on file 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 Gender Identity Female 10/01/2023 8:44 AM DEMURRAGE WORKER Sexual Orientation Straight 10/01/2023 8: 44 AM DEMURRAGE WORKER documented as of this encounter Miscellaneous Notes * Telephone Encounter - Huma Hensley - 09/24/2018 9:27 AM CST [phone] [facility] pharmacy has a refill request Tearra RRAGE WORKER documented in this encounter Plan of Treatment Not on file documented as of this encounter Visit Diagnoses Not on filedocumented in this encounter Care Teams Conservation Officer Relationship Specialty Start Date End Date Damian Sadler MD PCP - General 11/29/16 05/18/22 documented as of this encounter
--- OUTSIDE RECORDS SUMMARY | 2024-08-17 01:55 | XMS_ITS | Encounter Summary ---
Author Organization [facility] Healthcare Address [address] [place] [address] Care Team Providers Care Tree Worker Name Role Phone Damian Sadler MD Primary Care Provider + [phone] Encounter Details Date Type Department Care Team (Late st Contact Info) Description 05/23/2018 Telephone [facility] Emergency Department [address] [place], [place] [id number] Maria Victoria Yee RN Social History Tobacco Use Types Packs/Day Years Used Date Smoking Tobacco: Every Day Cigarettes Smokeless Tobacco: Never Alcohol Use Standard Drinks/Week Comments No 0 (1 standard drink = 0.6 oz pur e alcohol) Comments No Sex and Gender Information Value Date Recorded Sex Assigned at Not on file 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 Maria Victoria Tellez RN 05/23/18 [id number] documented in this encounter Miscellaneous Notes * Telephone Encounter - Maria Victoria Tellez RN - 05/23/2018 6:05 PM CDT ----- Message from Destinee Mcgrath NP sent at 05/22/2018 2:07 PM CDT ----- Attempted to contact regarding urine culture. Need to contact and obtain pharmacy info. Call in Nitrofurantoin 100 mg PO BID x 5 days. * Telephone Encounter - Maria Victoria eTllez RN - 05/23/2018 2:19 PM CDT ----- Message from Destinee Mcgrath NP sent at 05/22/2018 2:07 PM CDT ----- Attempted to contact regarding urine culture. Need to contact and obtain pharmacy info. Call in Nitrofurantoin 100 mg PO BID x 5 days. documented in this encounter Plan of Treatment Not on file documented as of this encounter Visit Diagnoses Not on filedocumented in this encounter Care Teams Tree Worker Relationship Specialty Start Date End Date Damian Sadler MD PCP - General 11/29/16 05/18/22 documented as of this encounter
--- OUTSIDE RECORDS SUMMARY | 2024-08-17 01:55 | XMS_ITS | Encounter Summary ---
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 Name Role Phone Damian Sadler MD Primary Care Provider [phone] Reason for Visit * Reason Comments Back Pain Encounter Details Date Type Department Care Team (Late st Contact Info) Description 10/31/2020 2:27 PM CDT - 10/31/2020 7:42 PM CDT Emergency [facility] Emergency Department [address] [place] [address] Thoracic myofascial strain, initial encounter (Primary Dx); History of hypertension; Contusion of back, unspecified laterality, initial encounter Discharge Disposition: Discharge to home or self care Social History Tobacco Use Types Packs/Day Years Used Date Smoking Tobacco: Every Day Cigarettes Smokeless Tobacco: Never Alcohol Use Standard Drinks/Week Comments No 0 (1 standard drink = 0.6 oz pur e alcohol) Comments No Sex and Gender Information Value Date Recorded Sex Assigned at Not on file Legal Sex Female 9:06 PM TURN DOWN MAN Gender Identity Female 10/01/2023 8:44 AM TURN DOWN MAN Sexual Orientation Straight 10/01/2023 8: 44 AM TURN DOWN MAN documented as of this encounter Last Filed Vital Signs Vital Sign Reading Time Taken Comments Blood Pressure 113/73 10/31/2020 5:30 PM CDT Pulse 71 10/31/2020 5:30 PM CDT Temperature 36.7 ??C (98 ??F) 10/31/2020 2:12 PM CDT Respiratory Rate 16 10/31/2020 5:30 PM CDT Oxygen Saturation 96% 10/31/2020 5:30 PM CDT Inhaled Oxygen Concentration - - Weight 77.1 kg (170 lb) 10/31/2020 2:12 PM CDT Height 160 cm (5' 3 ) 10/31/2020 2:12 PM CDT Body Mass Index 30.11 10/31/2020 2:12 PM CDT documented in this encounter Discharge Diagnoses Diagnosis Essential (primary) hypertension - ESSENTIAL (PRIMARY) HYPERTENSION Unspecified essential hypertension Strain of muscle and tendon of back wall of thorax, initial encounter - STRAIN OF MUSCLE AND TENDON OF BACK WALL OF THORAX, INITIAL ENCOUNTER Contusion of unspecified back wall of thorax, initial encounter - CONTUSION OF UNSPECIFIED BACK WALL OF THORAX, INITIAL ENCOUNTER Fall on same level from slipping, tripping and stumbling without subsequent striking against object, initial encounter - FALL ON SAME LEVEL FROM SLIPPING, TRIPPING AND STUMBLING WITHOUT SUBSEQUENT STRIKING AGAINST OBJECT, Activity, unspecified - ACTIVITY, UNSPECIFIED Unspecified place or not applicable - UNSPECIFIED PLACE OR NOT APPLICABLE Nicotine dependence, cigarettes, uncomplicated - NICOTINE DEPENDENCE, CIGARETTES, UNCOMPLICATED Personal history of urinary calculi - PERSONAL HISTORY OF URINARY CALCULI Allergy status to narcotic agent - ALLERGY STATUS TO NARCOTIC AGENT Allergy status to other drugs, medicaments and biological substances - ALLERGY STATUS TO OTHER DRUGS, MEDICAMENTS AND BIOLOGICAL SUBSTANCES documented in this encounter Discharge Instructions * Attachments The following attachments cannot be sent through Care Everywhere. * Soft Tissue Contusion (Kyrgyz) * Back Pain (AfterCare(R) Instructions(ER/ED)) (Kyrgyz) documented in this encounter Medications at Time of Discharge MULTIVIT-MINERAL S/FERROUS FUM (MULTI VITAMIN ORAL)Indications :health Take 1 tablet by mouth systems operator 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 omeprazole (PriLOSEC) 20 mg capsuleIndicatio ns:Treatment of Non-Bleeding Gastric Disorder Take 1 capsule (20 mg total) by mouth systems operator 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 cyclobenzaprine (FLEXERIL) 10 mg tablet Take 1 tablet (10 mg total) by mouth every 8 (eight) hours as needed for muscle spasms 12 tablet 10/31/2020 2 HYDROcodone-acet aminophen (NORCO) 5-325 mg per tabletIndication s:Pain Take 1-2 tablets by mouth every 6 (six) hours as needed for pain 6 tablet 10/31/2020 1 lidocaine (LIDODERM) 5 % Apply 1 patch topically daily Remove after 12 hours (need 12 hour patch free period). 10 patch 10/31/2020 1 lisinopril (PRINIVIL,ZESTRI L) 20 mg tablet Take 20 mg by mouth daily. 2 documented as of this encounter Ordered Prescriptions Prescription Sig Dispense Quantity Refills Last Filled Start Date End Date HYDROcodone-acetam inophen (NORCO) 5-325 mg per tabletIndications: Pain Take 1-2 tablets by mouth every 6 (six) hours as needed for pain 6 tablet 10/31/2020 1 cyclobenzaprine (FLEXERIL) 10 mg tablet Take 1 tablet (10 mg total) by mouth every 8 (eight) hours as needed for muscle spasms 12 tablet 10/31/2020 2 lidocaine (LIDODERM) 5 % Apply 1 patch topically daily Remove after 12 hours (need 12 hour patch free period). 10 patch 10/31/2020 1 documented in this encounter Discharge Disposition Disposition Code Departure Means Destination Discharge to home or self care documented in this encounter ED Notes * Lucas Grajeda PA - 10/31/2020 5:45 PM CDT Visit Date: 10/31/20 Triage Time: 1427 Age: 40 y.o. Service: Emergency Medicine ER Provider: AMISH Landers Patient Name: Renee Luke : 1980 Gender: female PCP: Damian Sadler MD Code Status: No Order Allergies: Allergies Allergen Reactions ??? Ketorolac Hives and Itching ??? Tramadol Hives and Urticaria Chief Complaint Patient presents with ??? Back Pain HISTORY OF PRESENT ILLNESS This is a 40-year-old female comes emergency room with past medical history of hypertension, migrainous headaches, kidney stones, ovarian torsion. Patient states that she had a slip and fall on the 27 of October (4 days ago) while walking down the stairs. She states that she fell backwards and struck the area between the shoulder blades on the ground. She initially had onset of pain, however, over the last several days the pain has been radiating to the lower extremities in a ???spasm?? type scenario. Patient states that the pain is continued to occur between the shoulder blades, worse with standing and moving. She denies any numbness tingling or muscle weakness to any extremity. Also, she denies any loss of consciousness, or head injury during the fall. She has had no nausea or vomiting, however, she did note she had pain in the ???kidneys?? . Therefore, patient was concerned with kidney function as she has had kidney stones in the past and similar pain with the kidney stones. Patient denies any fever, no upper respiratory infection symptoms. Patient History: Patient [...] 08/31/2014 Past Medical History: Diagnosis Date ??? Hypertension [...] Social History Narrative ??? 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 SUBJECTIVE Review of Systems Constitutional: Negative. HENT: Negative. Eyes: Negative. Respiratory: Negative. Cardiovascular: Negative. Gastrointestinal: Negative. Endocrine: Negative. Genitourinary: Positive for flank pain. Musculoskeletal: Positive for back pain. Skin: Negative. Allergic/Immunologic: Negative. Neurological: Negative. Hematological: Negative. Psychiatric/Behavioral: Negative. All other systems reviewed and are negative. Breast: Negative. OBJECTIVE ED Triage Vitals [10/31/20 1412] Temp Pulse Resp BP SpO2 36.7 ??C (98 ??F) 103 16 (!) 158/114 98 % Temp src Heart Rate Source Patient Position BP Location FiO2 (%) Oral -- -- -- -- Physical Exam Vitals and nursing note reviewed. Constitutional: Appearance: Normal appearance. She is normal weight. HENT: Head: Normocephalic and atraumatic. Right Ear: External ear normal. Left Ear: External ear normal. Nose: Nose normal. Mouth/Throat: Mouth: Mucous membranes are moist. Pharynx: Oropharynx is clear. Eyes: Extraocular Movements: Extraocular movements intact. Conjunctiva/sclera: Conjunctivae normal. Pupils: Pupils are equal, round, and reactive to light. Cardiovascular: Rate and Rhythm: Normal rate and regular rhythm. Pulses: Normal pulses. Heart sounds: Normal heart sounds. Pulmonary: Effort: Pulmonary effort is normal. Breath sounds: Normal breath sounds. Abdominal: General: Bowel sounds are normal. Palpations: Abdomen is soft. Tenderness: There is no right CVA tenderness or left CVA tenderness. Musculoskeletal: General: Tenderness and signs of injury present. Normal range of motion. Cervical back: Normal range of motion and neck supple. Comments: Patient has tenderness to palpation to the upper thoracic spine, at the posterior spinousprocess, no pain with palpation to the posterior spinous process of the cervical and or lumbar spine. Patient also has mild pain with palpation to the paravertebral spinal muscles of the thoracic spine. Patient has negative straight leg raise, negative opposite straight leg raise. Patient has good strength bilaterally in upper extremities. Extremities are unremarkable for pain or tenderness to palpation. Skin: General: Skin is warm and dry. Capillary Refill: Capillary refill takes less than 2 seconds. Neurological: General: No focal deficit present. Mental Status: She is alert and oriented to person, place, and time. Sensory: No sensory deficit. Motor: No weakness. Gait: Gait normal. Psychiatric: Mood and Affect: Mood normal. Behavior: Behavior normal. Thought Content: Thought content normal. Judgment: Judgment normal. Labs Ordered Labs Reviewed URINALYSIS AND REFLEX TO MICROSCOPIC AND CULTURE - Abnormal Result Value Color, ur Yellow Clarity, ur Cloudy (*) Specific gravity, ur 1.040 (*) pH, urine 5 Protein, ur ql 2+ (*) Glucose, ur ql Negative Ketones, ur Trace Bilirubin, ur 1+ (*) Blood, ur Negative Urobilinogen, ur <2.0 Nitrite, [...] tendency for uric acid stone formation. Source: [employer] [employer].Last revised 08-22-2017 URINALYSIS, MICROSCOPIC ONLY - Abnormal WBC, ur 0-5 RBC, ur 0-2 Epithelial cells, squamous, ur 11-20 (*) Bacteria, ur Trace (*) Mucous, ur Present (*) Culture Reflex Comment Value: Reflex conditions for urine culture (WBC >10) not met. POCT HCG, URINE - Normal HCG, ur, POC Negative Lot Number [id number] QC Backgroud Clear Acceptable QC Control Line Acceptable CBC WITH AUTO DIFFERENTIAL WBC 9.4 Hgb 14.1 Hct 39.7 Plt 275 MPV 10.1 RBC 4.52 MCV 87.8 MCH 31.2 MCHC 35.5 RDW CV 12.5 RDW SD 40.5 NRBC abs 0.00 BASIC METABOLIC PANEL Sodium 142 Potassium, pl 3.6 Chloride 107 CO2 24 Anion gap 11 BUN 10 Creatinine 0.73 Glucose 104 Calcium 9.6 DIFFERENTIAL AUTO Neutrophil abs 6.4 Imm gran abs 0.0 Lymphocyte abs 2.3 Monocyte abs 0.7 Eosinophil abs 0.0 Basophil abs 0.0 Neutrophil pct 67.8 Imm gran pct 0.2 Lymphocyte pct 24.0 Monocyte pct 7.4 Eosinophil pct 0.4 Basophil pct 0.[address] Thoracic Spine WO Contrast Final Result No evidence of thoracic spine fracture. Dictated by: Marilu Cotter M.D. The radiology attending physician has personally reviewed this study, and had reviewed and/or edited this written report and agrees with it. Electronically signed by: Carlyle Bob M.D. XR Spine Thoracic 3 Vw Final Result 1. Mild multilevel thoracic spine degenerative disc disease. 2. No acute fracture. Dictated by: Diallo Martins M.D. The radiology attending physician has personally reviewed this study, and had reviewed and/or edited this written report and agrees with it. Electronically signed by: Slime Meek M.D. CT Lumbar Spine WO Contrast Final Result No acute fracture in the lumbar spine. 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 The radiology attending physician has personally reviewed this study, and had reviewed and/or edited this written report and agrees with it. Electronically signed by: Samy Donahue M.D. ASSESSMENT & CARE Sequential Vitals Patient Vitals for the past 24 hrs: BP Temp Temp src Pulse Resp SpO2 Height Weight 10/31/20 1730 113/73 -- -- 71 16 96 % -- -- 10/31/20 1530 (!) 157/117 -- -- 79 -- 95 % -- -- 10/31/20 1412 (!) 158/114 36.7 ??C (98 ??F) Oral 103 16 98 % 160 cm (5' 3 ) 77.1 kg (170 lb) ED Course ED Course as of Oct 31 1928 Time: 10/31 154 Comment: Reports pain improved By: Maya Ulloa NP Time: 10/31 206 Comment: Patient has point tenderness to the thoracic spine, no evidence of acute compression fracture, however, patient has increased pain with deep inspiration and movement of bilateral upper extremities. Therefore, patient is okay to stay for CT scan of thoracic spine to rule out possible fracture not visualized on plain x-ray films. By: Lucas Grajeda PA Medications Given in the ED ED Medication Administration from 10/31/2020 1410 to 10/31/2020 1929 Date/Time Order Dose Route Action Action by 10/31/2020 1500 acetaminophen (TYLENOL) tablet 1,000 mg 1,000 mg oral Given Ricky, Kaylan 10/31/2020 1500 cyclobenzaprine (FLEXERIL) tablet 10 mg 10 mg oral Given Ricky B 10/31/2020 1500 lisinopriL (PRINIVIL,ZESTRIL) tablet 20 mg 20 mg oral Given Ricky B 10/31/2020 1550 cloNIDine (CATAPRES) tablet 0.1 mg 0.1 mg oral Given Ricky, B 10/31/2020 1607 morphine injection 2 mg 2 mg intravenous Given Ricky, B 10/31/2020 1842 morphine injection 4 mg 4 mg intravenous Given Carlos Ramirez Medical Decision Making MDM Number of Diagnoses or Management Options History of hypertension Lumbar strain, initial encounter Diagnosis management comments: Differential: 1. Likely contusion thoracic and lumbar spine 2. Less likely fracture 3. Possible compression fracture 4. Likely sciatica secondary to lumbar /thoracic contusion Plan: 1. IV, labs, urinalysis 2. Analgesia 3. Patient will likely need follow-up with primary care Amount and/or Complexity of Data Reviewed Clinical lab tests: reviewed DISPOSITION Disposition Decision Discharge Outpatient Medications Prescribed ED Prescriptions Medication Sig Dispense Start Date End Date Auth. Provider lidocaine (LIDODERM) 5 % Apply 1 patch topically daily Remove after 12 hours (need 12 hour patch free period). 10 patch 10/31/2020 11/30/2020 Lucas Grajeda PA cyclobenzaprine (FLEXERIL) 10 mg tablet Take 1 tablet (10 mg total) by mouth every 8 (eight) hours as needed for muscle spasms 12 tablet 10/31/2020 Lucas Grajeda PA HYDROcodone-acetaminophen (NORCO) 5-325 mg per tablet Take 1-2 tablets by mouth every 6 (six) hoursas needed for pain 6 tablet 10/31/2020 Lucas Ramires MD Final Diagnosis and Plan Final diagnoses: History of hypertension Thoracic myofascial strain, initial encounter Contusion of back, unspecified laterality, initial encounter Discharge Instructions Discharge Instructions None Patient Instructed to Follow Up With Damian Sadler MD [address] [facility] [address] [place] [address] Schedule an appointment as soon as possible for a visit Condition on Departure Vitals: 10/31/20 1412 10/31/20 1530 10/31/20 1730 BP: (!) 158/114 (!) 157/117 113/73 Pulse: 103 79 71 Resp: 16 16 Temp: 36.7 ??C (98 ??F) SpO2: 98% 95% 96% Lucas Grajeda MS [facility], [facility] Lucas Grajeda PA 10/31/20 193 * Maya Ulloa, CARLO - 10/31/2020 2:36 PM CDT HPI 40 year old female with PMH of HTN, kidney stones, migraines, bilateral leg weakness, numbness,ovarian torsion and arachnoid cyst c/o low back pain since a slip and fall that occurred on 10/27/2020. Denies hitting head or LOC. Reports pain is pain that shoots and radiates in to bilateral legsthat make her feel weak . No saddle anesthesia and no incontinence. Reports that she took Tylenol a nd Ibuprofen 3-4 hours ago with minimal relief of pain. She also reports history of kidney stones and stents. She endorses having dark colored urine. No fevers, chills, hematuria. Or any other symptoms. Chief Complaint Patient presents with ??? Back Pain History provided by: Medical records and patient Patient History: Patient Active Problem List Diagnosis [...] 08/31/2014 Past Medical History: Diagnosis Date ??? Hypertension [...] Systems Constitutional: Negative for chills and fever. Gastrointestinal: Negative for abdominal pain. Genitourinary: Negative for dysuria, flank pain and hematuria. Musculoskeletal: Positive for back pain. All other systems reviewed and are negative. Physical Exam ED Triage Vitals [10/31/20 1412] Temp Pulse Resp BP SpO2 36.7 ??C (98 ??F) 103 16 (!) 158/114 98 % Temp src Heart Rate Source Patient Position BP Location FiO2 (%) Oral -- -- -- -- Physical Exam Vitals and nursing note reviewed. Constitutional: General: She is not in acute distress. Appearance: Normal appearance. She is not ill-appearing, toxic-appearing or diaphoretic. HENT: Head: Normocephalic and atraumatic. Cardiovascular: Rate and Rhythm: Normal rate and regular rhythm. Heart sounds: Normal heart sounds. No murmur. No gallop. Pulmonary: Effort: Pulmonary effort is normal. No respiratory distress. Breath sounds: Normal breath sounds. Abdominal: Palpations: Abdomen is soft. Tenderness: There is no abdominal tenderness. Musculoskeletal: Right lower leg: No edema. Left lower leg: No edema. Comments: Normal gait 5/5 BLE strength Skin: General: Skin is warm and dry. Findings: No rash. Neurological: General: No focal deficit present. Mental Status: She is alert and oriented to person, place, and time. Psychiatric: Mood and Affect: Mood normal. Behavior: Behavior normal. MDM Ddx: lumbar strain, bulging disc, herniated disc, DDD, UA, kidney stones Plan: CT L spine, labs, UA. Analgesics Anticipate discharge home. Medical Decision Making Reviewed previous records: Previous admission(s) Summarize previous history: 04/28/2020 pt was at [facility] with c/o right lower rib pain. Pt had labs and RUQ US to r/o cholecystitis. Pt work up with no significant fidings, pt was discharged home. Critical care performed: No ED Course as of Nov 04 911 Time: 10/31 1545 Comment: Reports pain improved By: Maya Ulloa NP Time: 10/31 1835 Comment: Patient has point tenderness to the thoracic spine, no evidence of acute compression fracture, however, patient has increased pain with deep inspiration and movement of bilateral upper extremities. Therefore, patient is okay to stay for CT scan of thoracic spine to rule out possible fracture not visualized on plain x-ray films. By: Lucas Grajeda PA Final diagnoses: History of hypertension Thoracic myofascial strain, initial encounter Contusion of back, unspecified laterality, initial encounter Maya Ulloa NP 10/31/20 1446 Maya Ulloa NP 11/03/20 0912 * Laura Wiley RN - 10/31/2020 2:27 PM CDT Bed: ED3-12 Expected date: Expected time: Means of arrival: Car Comments: Laura Wiley, KHADAR 10/31/20 1427 * Korin Murray RN - 10/31/2020 2:13 PM CDT Pt to ED c/o back pain starting in her L spine and going all the way down her back. Pt states 10/27 she slipped and fell on her porch and landed on her back. Pt states since then she has been having shooting pains down her spine and into her bilateral legs that make her feel weak. Pt also endorses what she describes as squeezing pains to her bilateral kidneys. Pt states she has had kidney stones before and this pain feels very different. Pt states her urine is dark in color. Pt hypertensive in triage. Other VSS documented in this encounter Plan of Treatment Not on file documented as of this encounter Procedures Procedure Name Priority Date/Time Associated Diagnosis Comments CT THORACIC SPINE WO CONTRAST ED 10/31/2020 6:57 PM CDT XR SPINE THORACIC 3 VIEWS ED 10/31/2020 6:04 PM CDT POCT HCG, URINE Routine 10/31/2020 6:[address] LUMBAR SPINE WO CONTRAST ED 10/31/2020 3:06 PM CDT DIFFERENTIAL AUTO STAT 10/31/2020 2:4 5 PM CDT URINALYSIS AND REFLEX TO MICROSCOPIC AND CULTURE STAT 10/31/2020 2:45 PM CDT CBC WITH AUTO DIFFERENTIAL STAT 10/31/2020 2:45 PM CDT URINALYSIS, MICROSCOPIC ONLY STAT 10/31/2020 2:45 PM CDT BASIC METABOLIC PANEL STAT 10/31/2020 2:45 PM CDT documented in this encounter Results * CT Thoracic Spine WO Contrast (10/31/2020 6:57 PM CDT) Anatomical Region Laterality Modality Spine N/A Computed Tomogra phy 10/31/2020 7:17 PM CDT Impressions 10/31/2020 7:25 PM CDT No evidence of thoracic spine fracture. Dictated by: Marilu Cotter M.D. The radiology attending physician has personally reviewed this study, and had reviewed and/or edited this written report and agrees with it. Electronically signed by: Carlyle Bob M.D. Narrative 10/31/2020 7:25 PM CDT EXAMINATION: CT of the thoracic spine without contrast HISTORY: Pain after fall TECHNIQUE: CT of the thoracic spine was performed according to standard protocol without intravenous contrast. COMPARISON: 05/15/2016 05/15/[address] of the abdomen and pelvis from 11/11/2018. FINDINGS: There are 12 rib-bearing thoracic vertebra. The alignment of the thoracic spine is normal. There is mild kyphosis of the lower lumbar spine, unchanged. There is no acute fracture. Vertebral bodies are normal in height without compression fractures. There is multilevel degenerative disc disease. There are nonobstructive left renal calculi. The thoracic aorta is normal. There is mild facet hypertrophy. There is no neuroforaminal stenosis. There is no spinal canal stenosis. Procedure Note Carlyle Bob III, MD PhD - 10/31/2020 EXAMINATION: CT of the thoracic spine without contrast HISTORY: Pain after fall TECHNIQUE: CT of the thoracic spine was performed according to standard protocol without intravenous contrast. COMPARISON: 05/15/2016 05/15/[address] of the abdomen and pelvis from 11/11/2018. FINDINGS: There are 12 rib-bearing thoracic vertebra. The alignment of the thoracic spine is normal. There is mild kyphosis of the lower lumbar spine, unchanged. There is no acute fracture. Vertebral bodies are normal in height without compression fractures. There is multilevel degenerative disc disease. There are nonobstructive left renal calculi. The thoracic aorta is normal. There is mild facet hypertrophy. There is no neuroforaminal stenosis. There is no spinal canal stenosis. IMPRESSION: No evidence of thoracic spine fracture. Dictated by: Marilu Cotter M.D. The radiology attending physician has personally reviewed this study, and had reviewed and/or edited this written report and agrees with it. Electronically signed by: Carlyle Bob M.D. [facility] CT PROCEDURES Final Resu lt * XR Spine Thoracic 3 Vw (10/31/2020 6:04 PM CDT) Anatomical Region Laterality Modality Spine N/A Computed Radiogr aphy 10/31/2020 6:08 PM CDT Impressions 10/31/2020 6:11 PM CDT 1. Mild multilevel thoracic spine degenerative disc disease. 2. No acute fracture. Dictated by: Diallo Martins M.D. The radiology attending physician has personally reviewed this study, and had reviewed and/or edited this written report and agrees with it. Electronically signed by: Slime Meek M.D. Narrative 10/31/2020 6:11 PM CDT EXAMINATION: XR SPINE THORACIC 3 VIEWS HISTORY: Back pain. COMPARISON: None. FINDINGS: 3 views of the thoracic spine are submitted for interpretation. Alignment of the thoracic spine is normal. Vertebral body heights are normal. There is mild multilevel degenerative disc disease. Procedure Note Slime Meek MD - 10/31/2020 EXAMINATION: XR SPINE THORACIC 3 VIEWS HISTORY: Back pain. COMPARISON: None. FINDINGS: 3 views of the thoracic spine are submitted for interpretation. Alignment of the thoracic spine is normal. Vertebral body heights are normal. There is mild multilevel degenerative disc disease. IMPRESSION: 1. Mild multilevel thoracic spine degenerative disc disease. 2. No acute fracture. Dictated by: Diallo Martins M.D. The radiology attending physician has personally reviewed this study, and had reviewed and/or edited this written report and agrees with it. Electronically signed by: Slime Meek M.D. [facility] XR PROCEDURES Final Resu lt * POCT hCG, urine (10/31/2020 6:00 PM CDT) HCG, ur, POC Negative Lot Number [id number] QC Backgroud Clear Acceptable QC Control Line Acceptable Urine 10/31/2020 6:00 PM CDT [facility] POINT OF CARE TEST ORDERABLE S Final Result * CT Lumbar Spine WO Contrast (10/31/2020 3:06 PM CDT) Anatomical Region Laterality Modality Spine N/A Computed Tomogra phy 10/31/2020 4:08 PM CDT Impressions 10/31/2020 4:46 PM CDT No acute fracture in the lumbar spine. 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 The radiology attending physician has personally reviewed this study, and had reviewed and/or edited this written report and agrees with it. Electronically signed by: Samy Donahue M.D. Narrative 10/31/2020 4:46 PM CDT EXAMINATION: CT of the lumbar spine without contrast HISTORY: Lumbar back pain status post slip and fall TECHNIQUE: CT of the lumbar spine was performed according to standard protocol without intravenous contrast. Contrast Information: None COMPARISON: MRI dated 05/15/2016 FINDINGS: The alignment of the lumbar spine is normal. There is no acute fracture. The vertebral bodies are normal in height without compression fractures. Mild multilevel degenerative disc disease, most pronounced and mild at L1-L2 vertebral bodies. 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 There is no soft tissue abnormality. The abdominal aorta appears normal. No acute fracture is seen. Procedure Note Samy Donahue MD PhD - 10/31/2020 EXAMINATION: CT of the lumbar spine without contrast HISTORY: Lumbar back pain status post slip and fall TECHNIQUE: CT of the lumbar spine was performed according to standard protocol without intravenous contrast. Contrast Information: None COMPARISON: MRI dated 05/15/2016 FINDINGS: The alignment of the lumbar spine is normal. There is no acute fracture. The vertebral bodies are normal in height without compression fractures. Mild multilevel degenerative disc disease, most pronounced and mild at L1-L2 vertebral bodies. 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 There is no soft tissue abnormality. The abdominal aorta appears normal. No acute fracture is seen. IMPRESSION: No acute fracture in the lumbar spine. 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 The radiology attending physician has personally reviewed this study, and had reviewed and/or edited this written report and agrees with it. Electronically signed by: Samy Donahue M.D. Maya Ulloa FAST FOOD DELIVERY DRIVER IMG CT PROCEDURES Final Res ult * (ABNORMAL) Urinalysis, microscopic only (10/31/2020 2:45 PM CDT) WBC, ur 0-5 0 - 5 /HPF [facility] RBC, ur 0-2 0 - 2 /HPF [facility] Epithelial cells, squamous, ur 11-20(A) 0 - 5 /HPF [facility] Comment:Suggestive of contam ination. Consider recollection by clean catch. Bacteria, ur Trace(A) [facility] Mucous, ur Present(A) [facility] Culture Reflex Comment Reflex conditions for urine culture (WBC >10) not met. [facility] Urine 10/31/2020 2:45 PM CDT 10/31/2020 3:00 PM CDT Maya Ulloa FAST FOOD DELIVERY DRIVER LAB URINE ORDERABLES Final Result [facility] [place] [address] * Differential, auto (10/31/2020 2:45 PM CDT) Neutrophil abs 6.4 1.7 - 6.5 K/cumm [facility] Imm gran abs 0.0 0.0 - 0.1 K/cumm [facility] Lymphocyte abs 2.3 0.8 - 3.3 K/cumm [facility] Monocyte abs 0.7 0.2 - 0.8 K/cumm [facility] Eosinophil abs 0.0 0.0 - 0.5 K/cumm [facility] Basophil abs 0.0 0.0 - 0.1 K/cumm [facility] Neutrophil pct 67.8 % [facility] Comment: Interpretive Data Percent cell count reference ranges are not reported, since discordance with absolute values may lead to misinterpretation of CBC data. Current Interpretive Data was last revised on 2017. Imm gran pct 0.2 % [facility] Comment: Interpretive Data Percent cell count reference ranges are not reported, since discordance with absolute values may lead to misinterpretation of CBC data. Current Interpretive Data was last revised on 2017. Lymphocyte pct 24.0 % [facility] Comment: Interpretive Data Percent cell count reference ranges are not reported, since discordance with absolute values may lead to misinterpretation of CBC data. Current Interpretive Data was last revised on 2017. Monocyte pct 7.4 % [facility] Comment: Interpretive Data Percent cell count reference ranges are not reported, since discordance with absolute values may lead to misinterpretation of CBC data. Current Interpretive Data was last revised on 2017. Eosinophil pct 0.4 % [facility] Comment: Interpretive Data Percent cell count reference ranges are not reported, since discordance with absolute values may lead to misinterpretation of CBC data. Current Interpretive Data was last revised on 2017. Basophil pct 0.2 % [facility] Comment: Interpretive Data Percent cell count reference ranges are not reported, since discordance with absolute values may lead to misinterpretation of CBC data. Current Interpretive Data was last revised on 2017. Blood specimen (specimen) 10/31/2020 2:45 PM CDT 10/31/2020 3:06 PM CDT us Maya Ulloa NP LAB BLOOD ORDERABLES Final Result [facility] [place] [address] * Basic metabolic panel (10/31/2020 2:45 PM CDT) [facility] Sodium 142 135 - 145 mmol/L [facility] Potassium, pl 3.6 3.3 - 4.9 mmol/L [facility] Chloride 107 97 - 110 mmol/L [facility] CO2 24 22 - 32 mmol/L [facility] Anion gap 11 2 - 15 mmol/L [facility] BUN 10 8 - 25 mg/dL [facility] Creatinine 0.73 0.60 - 1.10 mg/dL [facility] Glucose 104 70 - 199 mg/dL [facility] Comment: Interpretive Data Fasting glucose [...] interpretive data was last revised 2017. Calcium 9.6 8.5 - 10.3 mg/dL [facility] Blood specimen (specimen) 10/31/2020 2:45 PM CDT 10/31/2020 3:06 PM CDT Maya Ulloa NP LAB BLOOD ORDERABLES Final Result [facility] [place] [address] * CBC with auto differential (10/31/2020 2:45 PM CDT) [facility] WBC 9.4 3.8 - 9.9 K/cumm [facility] Hgb 14.1 11.9 - 15.5 g/dL [facility] Hct 39.7 35.6 - 45.5 % [facility] Plt 275 150 - 400 K/cumm [facility] MPV 10.1 9.1 - 12.3 fL [facility] RBC 4.52 3.90 - 5.20 M/cumm [facility] MCV 87.8 81.3 - 96.4 fL [facility] MCH 31.2 27.1 - 33.3 pg [facility] MCHC 35.5 32.3 - 35.7 g/dL [facility] RDW CV 12.5 11.1 - 14.9 % [facility] RDW SD 40.5 35.7 - 48.1 fL [facility] NRBC abs 0.00 0.00 - 0.01 K/cumm [facility] Blood specimen (specimen) 10/31/2020 2:45 PM CDT 10/31/2020 3:06 PM CDT us Maya Ulloa FAST FOOD DELIVERY DRIVER LAB BLOOD ORDERABLES Final Result [facility] [place] [address] * (ABNORMAL) Urinalysis reflex to microscopic and culture Urine (10/31/2020 2:45 PM CDT) Color, ur Yellow Yellow [facility] Clarity, ur Cloudy(A) Clear [facility] Specific gravity, ur 1.040(H) 1.010 - 1.025 [facility] pH, urine 5 [facility] Protein, ur ql 2+(A) Negative [facility] Glucose, ur ql Negative Negative [facility] Ketones, ur Trace Negative [facility] Bilirubin, ur 1+(A) Negative [facility] Blood, ur Negative Negative [facility] Comment:Ascorbic acid identi fied in urine; possible false negative blood result. A microscopic exam will be added to identify RBCs. Urobilinogen, ur <2.0 <2.0 mg/dL [facility] Nitrite, ur Negative Negative [facility] Leukocyte esterase, ur Negative Negative [facility] UA reflex comment Reflex to microscopic UA will be performed. [facility] Urine 10/31/2020 2:45 PM CDT 10/31/2020 3:00 PM CDT Narrative CHARLEEN PINTO - 10/31/2020 3:16 PM CDT ?? Urine pH is affected by diet, medications, systemic acid-base disturbances, and renal tubular function. ??pH may affect urinary stone formation. ??For example, urine pH below 6.0 may help reduce the tendency for calcium phosphate stones and pH greater than 6.0 may reduce the tendency for uric acid stone formation. Source: [employer] Last revised 08-22-2017 us Maya Ulloa NP LAB MICROBIOLOGY - GENERAL ORDERABLES Final Result [facility] [place] [address] documented in this encounter Visit Diagnoses Diagnosis Thoracic myofascial strain, initial encounter- Primary History of hypertension Personal history of other diseases of circulatory system Contusion of back, unspecified laterality, initial encounter documented in this encounter Administered Medications Inactive Administered Medications - up to 3 most recent administrations Medication Order MAR Action Action Date Dose Rate Site acetaminophen (TYLENOL) tablet 1,000 mg 1,000 mg, oral, Once, On Sat10/31/20 at 1445, For 1 dose Given 10/31/2020 3:00 PM CDT 1,000 mg cloNIDine (CATAPRES) tablet 0.1 mg 0.1 mg, oral, Once, On Sat10/31/20 at 1546, For 1 dose Given 10/31/2020 3:50 PM CDT 0.1 mg cyclobenzaprine (FLEXERIL) tablet 10 mg 10 mg, oral, Once, On Sat10/31/20 at 1445, For 1 dose Given 10/31/2020 3:00 PM CDT 10 mg lisinopriL (PRINIVIL,ZESTRIL) tablet 20 mg 20 mg, oral, Once, On Sat10/31/20 at 1446, For 1 dose Given 10/31/2020 3:00 PM CDT 20 mg morphine injection 2 mg 2 mg, intravenous, Administer over 4 Minutes, Once, On Sat10/31/20 at 1602, For 1 dose, Indications: PainIndications:Pain Given 10/31/2020 4:07 PM CDT 2 mg morphine injection 4 mg 4 mg, intravenous, Administer over 4 Minutes, Once, On Sat10/31/20 at 1839, For 1 dose Given 10/31/2020 6:42 PM CDT 4 mg documented in this encounter Discontinued Medications Medication Sig Discontinue Reason Start Date End Da te cyclobenzaprine (FLEXERIL) 10 mg tablet Take 1 tablet (10 mg total) by mouth 2 (two) times a day as needed for muscle spasms. 03/19/2018 10/31/2020 HYDROcodone-acetaminophe n (NORCO) 5-325 mg per tabletIndications:Pain Take 1 tablet by mouth every 6 (six) hours as needed for pain 04/28/2020 10/31/2020 documented as of this encounter Active and Recently Administered Medications Times are shown in CDT. Scheduled Medication Order 10/29/2020 10/30/2020 10/31/2020 acetaminophen (TYLENOL) tablet 1,000 mg (COMPLETED) 1,000 mg, oral, Once, On Sat10/31/20 at 1445, For 1 dose 1500 (Given - Provid er: Marisabel García RN) cloNIDine (CATAPRES) tablet 0.1 mg (COMPLETED) 0.1 mg, oral, Once, On Sat10/31/20 at 1546, For 1 dose 1550 (Given - Provid er: Marisabel García RN) cyclobenzaprine (FLEXERIL) tablet 10 mg (COMPLETED) 10 mg, oral, Once, On Sat10/31/20 at 1445, For 1 dose 1500 (Given - Provid er: Marisabel García RN) lisinopriL (PRINIVIL,ZESTRIL) tablet 20 mg (COMPLETED) 20 mg, oral, Once, On Sat10/31/20 at 1446, For 1 dose 1500 (Given - Provid er: Marisabel García RN) morphine injection 2 mg (COMPLETED) 2 mg, intravenous, Administer over 4 Minutes, Once, On Sat10/31/20 at 1602, For 1 dose, Indications: Pain 1607 (Given - Provid er: Marisabel García RN) morphine injection 4 mg (COMPLETED) 4 mg, intravenous, Administer over 4 Minutes, Once, On Sat10/31/20 at 1839, For 1 dose 1842 (Given - Provid er: Braden Ramirez, KHADAR) documented in this encounter Orders IV Count Last Ordered Date First Orde red Date INSERT PERIPHERAL IV 1 10/31/2020 SALINE LOCK IV 1 10/31/2020 documented in this encounter Care Teams Land Reclamation Specialist Relationship Specialty Start Date End Date Damian Sadler MD PCP - General 11/29/16 05/18/22 documented as of this encounter
--- OUTSIDE RECORDS SUMMARY | 2024-08-17 01:55 | XMS_ITS | Encounter Summary ---
Author Organization [facility] Healthcare Address [address] [place] [address] Care Team Providers Care Distillery Supervisor Name Role Phone Damian Sadler MD Primary Care Provider [phone] Encounter Details Date Type Department Care Team (Late st Contact Info) Description 05/24/2018 Telephone [facility] Emergency Department [address] [place] [address] Brianna Novak RN Social History Tobacco Use Types Packs/Day Years Used Date Smoking Tobacco: Every Day Cigarettes Smokeless Tobacco: Never Alcohol Use Standard Drinks/Week Comments No 0 (1 standard drink = 0.6 oz pur e alcohol) Comments No Sex and Gender Information Value Date Recorded Sex Assigned at Not on file Legal Sex Female 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 No answer but message left on voicemail. Brianna Novak RN 05/24/18 1320 documented in this encounter Miscellaneous Notes * Telephone Encounter - Brianna Novak RN - 05/24/2018 1:19 PM CDT ----- Message from Destinee Mcgrath NP sent at 05/22/2018 2:07 PM CDT ----- Attempted to contact regarding urine culture. Need to contact and obtain pharmacy info. Call in Nitrofurantoin 100 mg PO BID x 5 days. documented in this encounter Plan of Treatment Not on file documented as of this encounter Visit Diagnoses Not on filedocumented in this encounter Care Teams Distillery Supervisor Relationship Specialty Start Date End Date Damian Sadler MD PCP - General 11/29/16 05/18/22 documented as of this encounter
--- OUTSIDE RECORDS SUMMARY | 2024-08-17 01:55 | XMS_ITS | Encounter Summary ---
Author Organization [facility] Facility Care Team Providers Care Windows Laptop Technician Name Role Phone Unavailable Primary Care Provider Unavailabl e Encounter Details Date Type Department Care Team (Late st Contact Info) Description 06/07/2016 12:30 PM CDT - 06/07/2016 11:59 PM CDT Hospital Encounter [facility] Filiberto Dhaliwal MD [address] [address] Other cervical disc degeneration at C5-C6 level Social History Tobacco Use Types Packs/Day Years Used Date Smoking Tobacco: Never Assessed Comments Unknown Sex and Gender Information Value Date Recorded Sex Assigned at Not on file Legal Sex Female 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 ROOM 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 Gender Identity Female 10/01/2023 8:44 AM PRINT ROOM WORKER Sexual Orientation Straight 10/01/2023 8: 44 AM PRINT ROOM WORKER documented as of this encounter Plan of Treatment Not on file documented as of this encounter Procedures Procedure Name Priority Date/Time Associated Diagnosis Comments XR SPINE CERVICAL W FLEXION AND EXTENSION 6 OR MORE VIEWS Routine 06/07/2016 12:46 PM CDT documented in this encounter Results * XR Spine Cervical W Flexion And Extension 6 or More Views (06/07/2016 12:46 PM CDT) Anatomical Region Laterality Modality Spine N/A Radiographic Sweta ging 06/07/2016 12:4 6 PM CDT Narrative 06/07/2016 12:51 PM CDT GITA RODRIGUEZ M.D. FINAL REPORT ACC# ??Date Time ??Exam [id number] Jun 07, 2016 12:46:00 [id number] Spine Cerv 6 or more views EXAMINATION: ?? 1. Cervical spine 6 or more views HISTORY: Cervical spondylosis FINDINGS: A 6 view submitted with comparison 05/15/2016. 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 There no acute fractures. There is no prevertebral soft tissue swelling. There is mild C5-C6 degenerative disc disease. Flexion-extension views demonstrate no abnormal translation. The right-sided osseous neural foramina are patent. The left-sided are incompletely evaluated. IMPRESSION: ?? 1. Mild C5-C6 degenerative disc disease. Requested By: FILIBERTO DHALIWAL M.D. Dictated By: ?? GITA RODRIGUEZ M.D. ??on Jun 07 2016 12:51P This document has been electronically signed by: GITA RODRIGUEZ M.D. on Jun 07 2016 12:51P [id number] Procedure Note Provider, MD Margarita - 12/17/2016 GITA RODRIGUEZ M.D. FINAL REPORT ACC# Date Time Exam [id number] Jun 07, 2016 12:46:00 [id number] Spine Cerv 6 or more views EXAMINATION: 1. Cervical spine 6 or more views HISTORY: Cervical spondylosis FINDINGS: A 6 view submitted with comparison 05/15/2016. 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 There no acute fractures. There is no prevertebral soft tissue swelling. There is mild C5-C6 degenerative disc disease. Flexion-extension views demonstrate no abnormal translation. The right-sided osseous neural foramina are patent. The left-sided are incompletely evaluated. IMPRESSION: 1. Mild C5-C6 degenerative disc disease. Requested By: FILIBERTO DHALIWAL M.D. Dictated By: GITA RODRIGUEZ M.D. on Jun 07 2016 12:51P This document has been electronically signed by: GITA RODRIGUEZ M.D. on Jun 07 2016 12:51P [id number] us Historical Provider MD HOLDEN XR PROCEDURES Final R esult documented in this encounter Visit Diagnoses Diagnosis Other cervical disc degeneration at C5-C6 level documented in this encounter
--- OUTSIDE RECORDS SUMMARY | 2024-08-17 01:55 | XMS_ITS | Encounter Summary ---
Author Organization [facility] Healthcare Address [address] [place] [address] Care Team Providers Care Regrader Name Role Phone Damian Sadler MD Primary Care Provider Reason for Visit * Reason Comments Flank Pain Encounter Details Date Type Department Care Team (Late st Contact Info) Description 03/18/2018 9:12 PM CDT - 03/19/2018 2:54 AM CDT Emergency [facility] Emergency Department [address] [place] [address] Hayley Watkins MD [address] [place] [address] Damián Garcia MD [address] [place] [address] Chest wall pain (Primary Dx); Flank pain Discharge Disposition: Discharge to home or self care Social History Tobacco Use Types Packs/Day Years Used Date Smoking Tobacco: Every Day Cigarettes Smokeless Tobacco: Never Comments No Sex and Gender Information Value Date Recorded Sex Assigned at Not on file 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 Gender Identity Female 10/01/2023 8:44 AM SWAGE TOOLSETTER Sexual Orientation Straight 10/01/2023 8: 44 AM SWAGE TOOLSETTER documented as of this encounter Last Filed Vital Signs Vital Sign Reading Time Taken Comments Blood Pressure 127/79 03/19/2018 2:00 AM CDT Pulse 80 03/19/2018 2:00 AM CDT Temperature 37.2 ??C (99 ??F) 03/18/2018 2:59 PM CDT Respiratory Rate 18 03/19/2018 2:00 AM CDT Oxygen Saturation 99% 03/19/2018 2:00 AM CDT Inhaled Oxygen Concentration - - Weight 77.1 kg (170 lb) 03/18/2018 2:59 PM CDT Height 160 cm (5' 3 ) 03/18/2018 2:59 PM CDT Body Mass Index 30.11 03/18/2018 2:59 PM CDT documented in this encounter Discharge Instructions * Attachments The following attachments cannot be sent through Care Everywhere. 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 20 tablet 03/19/2018 1 lisinopril (PRINIVIL,ZESTRI L) 20 mg tablet Take 20 mg by mouth daily. 2 documented as of this encounter Ordered Prescriptions Prescription Sig Dispense Quantity Refills Last Filled Start Date End Date cyclobenzaprine (FLEXERIL) 10 mg tablet Take 1 tablet (10 mg total) by mouth 2 (two) times a day as needed for muscle spasms. 20 tablet 03/19/2018 10/31/2020 documented in this encounter Discharge Disposition Disposition Code Departure Means Destination Comment s Discharge to home or self care ambulatory, states understanding of discharge instructions, left with prescription and work note documented in this encounter ED Notes * Justo Nuñez MD - 03/18/2018 10:26 PM CDT HPI Chief Complaint Patient presents with ??? Flank Pain 38-year-old female with a past medical history of hypertension and renal colic presents with right axillary chest wall pain and right flank pain for 3 weeks. Axillary chest wall pain is described as sharp, 7/10, worse with palpation, better with laying in the left lateral decubitus. No associated trauma. Denied chest pain or shortness of breath. Her right flank pain is described as intermittent, colicky, 5/10, worse with palpation of the right costovertebral angle, slightly improved with [id number] pain medication. She denied dysuria, hematuria, vaginal discharge, pelvic pain, fevers, chills, nausea, vomiting. Patient History There are no active problems to display for this patient. Past Medical History: Diagnosis Date ??? Hypertension Past Surgical History: Procedure Laterality Date ??? SECTION ??? HYSTERECTOMY ??? KIDNEY SURGERY History reviewed. No pertinent family history. Social History Substance Use Topics ??? Smoking status: Current Every Day Smoker Packs/day: 0.50 ??? Smokeless tobacco: Never Used ??? Alcohol use Not on file Social History Social History Narrative ??? No narrative on file Review of Systems Review of Systems HENT: Negative. Eyes: Negative. Respiratory: Negative. Cardiovascular: Negative. Gastrointestinal: Negative. Endocrine: Negative. Genitourinary: Positive for flank pain. Negative for difficulty urinating, dyspareunia, dysuria, frequency, genital sores, hematuria, pelvic pain, urgency, vaginal bleeding, vaginal discharge and vaginal pain. Musculoskeletal: Positive for back pain. Skin: Negative. Allergic/Immunologic: Negative. Neurological: Negative. Hematological: Negative. Breast: Right lateral chest wall pain Physical Exam ED Triage Vitals [03/18/18 1459] Temp Pulse Resp BP SpO2 37.2 ??C (99 ??F) 77 19 (!) 139/110 96 % Temp src Heart Rate Source Patient Position BP Location FiO2 (%) Oral -- -- -- -- Physical Exam Constitutional: She is oriented to person, place, and time. She appears well- developed and well-nourished. HENT: Head: Normocephalic and atraumatic. Eyes: Pupils are equal, round, and reactive to light. EOM are normal. Neck: Normal range of motion. Neck supple. Cardiovascular: Normal rate, regular rhythm and normal heart sounds. Pulmonary/Chest: Effort normal and breath sounds normal. Abdominal: Soft. Bowel sounds are normal. Musculoskeletal: Tender to palpation in the right lateral chest wall, right CVA tenderness to palpation Neurological: She is alert and oriented to person, place, and time. Skin: Skin is warm and dry. MDM MDM Number of Diagnoses or Management Options Diagnosis management comments: 38-year-old female with above past medical history presents with right lateral chest wall pain, right flank pain for 3 weeks. Differential diagnosis for right flank pain includes nephrolithiasis (less likely given recent negative studies) versus ureterolithiasis (lesslikely given negative recent studies) versus renal infarct (moderate likelihood given continued flank pain in the absence of renal stones) versus urinary tract infection versus. Differential diagnosis for lateral chest wall pain includes musculoskeletal pain (moderate likelihood given reproducibility of pain) versus rib fracture (less likely given no history of trauma) versus muscle strain (moderate likelihood given pain with active movement). Will get CBC, BMP, UA, chest x-ray, CT abdomen and pelvis with contrast (to rule out stone versus renal infarct). Disposition pending workup. Attending Summary of Care ED Course as of Mar 19 2237 Time: 03/19 233 Comment: I explained to the patient her CT scan is negative. Explained that we look for any infectious or vascular causes of her pain. I explained to her that we have ruled out all the emergent causes of her pain that would need immediate treatment. She understands and is willing to go home. Her diagnosis is most likely musculoskeletal pain. I will send her home with a few doses of muscle relaxant to see if this helps with her symptoms. By: George Meehan MD Chest wall pain Flank pain Justo Nuñez MD Resident 03/18/182344 Justo Nuñez MD Resident 03/19/182236 Cosigned by Hayley Watkins MD at 03/20/2018 8:59 AM CDT Associated attestation - Hayley Watkins MD - 03/20/2018 8:59 AM CDT I have seen and examined the patient on 03/18/2018 . I agree with the findings and plan of care as documented in the resident's note. This is a 38 year old female with h/o renal colic in the past from kidney stones presenting with right sided chest pain, which is worse with movement, better with lying still, on going for last 3 weeks, constant, improved with some PO analgesics at home. Pain is slightly worse with deep breathing as well but resolves completely with rest. She also has right flank pain that she does not feel is similar to her prior episodes of renal colic. This particular pain started 3 days ago, constant, sudden onset. Our concern is for vascular etiology such as renal infarct, more so than infectious work upsuch as appendicitis. Will obtain infectious workup and CT abd w/contrast to evaluate for renal etiology of pain. PERC negative, lower concern for PE. Given CP has been on going for 3 weeks, and constant, lower concern for ACS. Much of workup pending however if the CT is normal and pt is improved symptomatically, likely ok for discharge with outpatient follow up. Labs / imaging pending. Pt was signed out to oncoming team. Jeb CURIEL * Alisha Corbin RN - 03/18/2018 9:12 PM CDT Bed: ED1-15 Expected date: Expected time: Means of arrival: Car Comments: Alisha Corbin RN 03/18/182111 * Florencia Stack RN - 03/18/2018 2:56 PM CDT Patient presents with right arm pain x3 weeks ago with numbness and tingling, special needs nanny strength is equal. Patient states she cannot raise her arm more than 90 degrees. Denies trauma. Right sided flank pain that wraps around the abdomen started x3 days ago. PMH of kidney stones. Denies urinary symptoms,but states her kidney just hurts . documented in this encounter Miscellaneous Notes * ED Re-evaluation Note - George Meehan MD - 03/18/2018 11:22 PM CDT ED Re-evaluation ED Course as of Mar 19 738 Time: 03/19 023 Comment: I explained to the patient her CT scan is negative. Explained that we look for any infectious or vascular causes of her pain. I explained to her that we have ruled out all the emergent causes of her pain that would need immediate treatment. She understands and is willing to go home. Her diagnosis is most likely musculoskeletal pain. I will send her home with a few doses of muscle relaxant to see if this helps with her symptoms. By: George Meehan MD 38F pmh htn, renal colic p/w right lateral chest wall pain x3 weeks, likely msk, worse with arm mvmt. Also right flank pain. No dysuria/hematuria and clear UA. CT a/p to evaluate for renal infarct. If negative, then d/c home with sx control. George Meehan MD Resident 03/19/18737 Cosigned by Damián Garcia MD at 03/21/2018 7:35 AM CDT Associated attestation - Damián Garcia MD - 03/21/2018 7:35 AM CDT I, Damián Garcia MD, personally reviewed the patient???s chart and discussed the case with the resident providing care for this encounter. I agree with the assessment, treatment plan and disposition of the patient as recorded by the resident. * ED Procedure Note - Hayley Watkins MD - 03/18/2018 10:19 PM CDTAssociated Order(s): ECG 12-LEAD Procedure ECG 12 lead Date/Time: 03/18/2018 10:19 PM Performed by: HAYLEY WATKINS Authorized by: HAYLEY WATKINS Rate: ECG rate assessment: normal Rhythm: Rhythm: sinus rhythm Ectopy: Ectopy: none QRS: QRS axis: Normal Conduction: Conduction: normal ST segments: ST segments: Normal T waves: T waves: normal Previous ECG: Previous ECG: Unavailable Interpretation: Interpretation: No significant change Recommended Follow-up: Recommended follow up: further workup in the ED Hayley Watkins MD 03/18/182219 documented in this encounter Plan of Treatment Not on file documented as of this encounter Procedures Procedure Name Priority Date/Time Associated Diagnosis Comments XR CHEST PA LATERAL 2 VIEWS ED 03/19/2018 1:[address] ABDOMEN PELVIS W CONTRAST ED 03/19/2018 12:49 AM CDT ECG 12-LEAD Routine 03/18/2018 10:19 PM CDT DIFFERENTIAL AUTO STAT 03/18/2018 9:5 6 PM CDT CBC WITH AUTO DIFFERENTIAL STAT 03/18/2018 9:56 PM CDT LIPASE STAT 03/18/2018 9:56 PM CDT HEPATIC FUNCTION PANEL STAT 03/18/2018 9:56 PM CDT BASIC METABOLIC PANEL STAT 03/18/2018 9:56 PM CDT POCT HCG, URINE Routine 03/18/2018 5:11 PM CDT URINALYSIS AND REFLEX TO MICROSCOPIC AND CULTURE STAT 03/18/2018 5:10 PM CDT documented in this encounter Results * XR Chest Pa Lateral 2 Vw (03/19/2018 1:46 AM CDT) Anatomical Region Laterality Modality Body, Chest N/A Computed Radiogr aphy 03/19/2018 1:52 AM CDT Impressions 03/19/2018 1:47 PM CDT 2 views of the chest are submitted for interpretation without comparison. The lungs are clear with no pneumothorax, pleural effusion, pulmonary edema, or focal consolidation. The cardiomediastinal silhouette is within normal limits. ??Contrast is noted in the renal collecting systems. Electronically signed by: Josh Haile M.D. Narrative 03/19/2018 1:47 PM CDT EXAMINATION: 2 view chest radiograph HISTORY: Chest wall pain Procedure Note Josh Haile MD - 03/19/2018 EXAMINATION: 2 view chest radiograph HISTORY: Chest wall pain IMPRESSION: 2 views of the chest are submitted for interpretation without comparison. The lungs are clear with no pneumothorax, pleural effusion, pulmonary edema, or focal consolidation. The cardiomediastinal silhouette is within normal limits. Contrast is noted in the renal collecting systems. Electronically signed by: Josh Haile M.D. Justo Nuñez MD IMG XR PROCEDURES Final Re sult * CT Abdomen Pelvis W Contrast (03/19/2018 12:49 AM CDT) Anatomical Region Laterality Modality Body N/A Computed Tomogra phy 03/19/2018 1:50 AM CDT Impressions 03/19/2018 1:29 PM CDT 1. ??No CT explanation for patient's right flank/chest wall pain. Electronically signed by: Josh Haile M.D. Narrative 03/19/2018 1:29 PM CDT EXAMINATION: ??Computed tomography of the abdomen and pelvis with intravenous contrast HISTORY: 38-year-old female with hypertension and renal colic presents with right axillary chest wall pain and right flank pain for 3 weeks TECHNIQUE: ??Transaxial computed tomographic images of the abdomen and pelvis were obtained with intravenous contrast according to the standard protocol after the uneventful administration of 100 mL Opti-Ray 350 intravenous contrast. COMPARISON: 12/29/2015 FINDINGS: The lung bases are clear. ??There is hepatic steatosis. ??The gallbladder, pancreas, spleen, adrenal glands and kidneys are normal in appearance. ??There is no hydronephrosis. ??The bladder is partially decompressed. ??1.2 cm left-sided corpus luteal cyst is noted with a small amount of surrounding hemorrhage or large and small bowel are normal in appearance without evidence of obstruction. ??The abdominal aorta is normal in course and caliber. ??There is no abdominal, pelvic or retroperitoneal lymphadenopathy. Mild multilevel degenerative disc disease is noted. ??There is mild anterior wedging at the T11 level unchanged compared to 12/29/2015. Procedure Note Josh Haile MD - 03/19/2018 EXAMINATION: Computed tomography of the abdomen and pelvis with intravenous contrast HISTORY: 38-year-old female with hypertension and renal colic presents with right axillary chest wall pain and right flank pain for 3 weeks TECHNIQUE: Transaxial computed tomographic images of the abdomen and pelvis were obtained with intravenous contrast according to the standard protocol after the uneventful administration of 100 mL Opti-Ray 350 intravenous contrast. COMPARISON: 12/29/2015 FINDINGS: The lung bases are clear. There is hepatic steatosis. The gallbladder, pancreas, spleen, adrenal glands and kidneys are normal in appearance. There is no hydronephrosis. The bladder is partially decompressed. 1.2 cm left-sided corpus luteal cyst is noted with a small amount of surrounding hemorrhage or large and small bowel are normal in appearance without evidence of obstruction. The abdominal aorta is normal in course and caliber. There is no abdominal, pelvic or retroperitoneal lymphadenopathy. Mild multilevel degenerative disc disease is noted. There is mild anterior wedging at the T11 level unchanged compared to 12/29/2015. IMPRESSION: 1. No CT explanation for patient's right flank/chest wall pain. Electronically signed by: Josh Haile M.D. us Justo Nuñez MD IM CT PROCEDURES Final Re sult * ECG 12-LEAD (03/18/2018 10:19 PM CDT) Narrative [facility] - 03/18/2018 10:19 PM CDT Hayley Watkins MD ? 03/18/2018 10:20 PM ECG 12 lead Date/Time: 03/18/2018 10:19 PM Performed by: HAYLEY WATKINS Authorized by: HAYLEY WATKINS Rate: ??ECG rate assessment: normal ?? Rhythm: ??Rhythm: sinus rhythm ?? Ectopy: ??Ectopy: none ?? QRS: ??QRS axis: ??Normal Conduction: ??Conduction: normal ?? ST segments: ??ST segments: ??Normal T waves: ??T waves: normal ?? Previous ECG: ??Previous ECG: ??Unavailable Interpretation: ??Interpretation: No significant change ?? Recommended Follow-up: ??Recommended follow up: further workup in the ED ?? Procedure Note Hayley Watkins MD - 03/18/2018 10:19 PM CDT Procedure ECG 12 lead Date/Time: 03/18/2018 10:19 PM Performed by: HAYLEY WATKINS Authorized by: HAYLEY WATKINS Rate: ECG rate assessment: normal Rhythm: Rhythm: sinus rhythm Ectopy: Ectopy: none QRS: QRS axis: Normal Conduction: Conduction: normal ST segments: ST segments: Normal T waves: T waves: normal Previous ECG: Previous ECG: Unavailable Interpretation: Interpretation: No significant change Recommended Follow-up: Recommended follow up: further workup in the ED Hayley Watkins MD 03/18/18 7680 us Hayley Watkins MD ECG ORDERABLES Final Result [facility] * Differential, auto (03/18/2018 9:56 PM CDT) Neutrophil abs 4.8 1.7 - 6.5 K/cumm [facility] Imm gran abs 0.0 0.0 - 0.1 K/cumm [facility] Lymphocyte abs 2.8 0.8 - 3.3 K/cumm [facility] Monocyte abs 0.6 0.2 - 0.8 K/cumm [facility] Eosinophil abs 0.1 0.0 - 0.5 K/cumm [facility] Basophil abs 0.0 0.0 - 0.1 K/cumm [facility] Neutrophil pct 57.4 % [facility] Comment: Interpretive Data Percent cell count reference ranges are not reported, since discordance with absolute values may lead to misinterpretation of CBC data. Current Interpretive Data was last revised on 2017. Imm gran pct 0.5 % [facility] Comment: Interpretive Data Percent cell count reference ranges are not reported, since discordance with absolute values may lead to misinterpretation of CBC data. Current Interpretive Data was last revised on 2017. Lymphocyte pct 33.8 % [facility] Comment: Interpretive Data Percent cell count reference ranges are not reported, since discordance with absolute values may lead to misinterpretation of CBC data. Current Interpretive Data was last revised on 2017. Monocyte pct 6.7 % [facility] Comment: Interpretive Data Percent cell count reference ranges are not reported, since discordance with absolute values may lead to misinterpretation of CBC data. Current Interpretive Data was last revised on 2017. Eosinophil pct 1.2 % [facility] Comment: Interpretive Data Percent cell count reference ranges are not reported, since discordance with absolute values may lead to misinterpretation of CBC data. Current Interpretive Data was last revised on 2017. Basophil pct 0.4 % [facility] Comment: Interpretive Data Percent cell count reference ranges are not reported, since discordance with absolute values may lead to misinterpretation of CBC data. Current Interpretive Data was last revised on 2017. Blood specimen (specimen) 03/18/2018 9:56 PM CDT 03/18/2018 10:22 PM CDT [facility] - 03/18/2018 10:32 PM CDT us Justo Nuñez MD LAB BLOOD ORDERABLES Final Result [facility] Department [place] [address] * (ABNORMAL) Hepatic function panel (03/18/2018 9:56 PM CDT) Bilirubin, total 0.5 0.1 - 1.2 mg/dL [facility] Bilirubin, direct <0.2 0.1 - 0.3 mg/dL [facility] Protein, pl 7.3 6.5 - 8.5 g/dL [facility] Albumin 4.3 3.5 - 5.0 g/dL [facility] Alk phos 61 40 - 130 Units/L [facility] ALT 53(H) 7 - 45 Units/L [facility] AST 30 10 - 45 Units/L [facility] Blood specimen (specimen) 03/18/2018 9:56 PM CDT 03/18/2018 10:22 PM CDT Narrative [facility] - 03/18/2018 10:54 PM CDT THE COLLECTION LOCATION IS [facility] ED1-15 Justo Nuñez MD LAB BLOOD ORDERABLES Final Result [facility] Department [place] [address] * Basic metabolic panel (03/18/2018 9:56 PM CDT) Sodium 139 135 - 145 mmol/L [facility] Potassium, pl 3.4 3.3 - 4.9 mmol/L [facility] Chloride 106 97 - 110 mmol/L [facility] CO2 23 22 - 32 mmol/L [facility] Anion gap 10 2 - 15 mmol/L [facility] BUN 10 8 - 25 mg/dL [facility] Creatinine 0.75 0.60 - 1.10 mg/dL [facility] Glucose 78 70 - 199 mg/dL [facility] Comment: Interpretive Data Fasting glucose >/= [...] interpretive data was last revised 2017. Calcium 9.1 8.5 - 10.3 mg/dL [facility] Blood specimen (specimen) 03/18/2018 9:56 PM CDT 03/18/2018 10:22 PM CDT Narrative [facility] - 03/18/2018 10:51 PM CDT THE [facility] COLLECTION LOCATION IS [facility] ED1-15 Justo Nuñez MD LAB BLOOD ORDERABLES Final Result Performing Organization Address City/[facility] Co de Phone Number [facility] [place] [address] * Lipase (03/18/2018 9:56 PM CDT) Pathologist [facility] Lipase 34 10 - 99 Units/L [facility] Blood specimen (specimen) 03/18/2018 9:56 PM CDT 03/18/2018 10:22 PM CDT Narrative [facility] - 03/18/2018 10:51 PM CDT THE COLLECTION LOCATION IS [facility] ED115 Justo Nuñez MD LAB BLOOD ORDERABLES Final Result Performing Organization Address [facility] Co de Phone Number [facility] [place] [address] * CBC with auto differential (03/18/2018 9:56 PM CDT) WBC 8.4 3.8 - 9.9 K/cumm [facility] Hgb 13.7 11.9 - 15.5 g/dL [facility] Hct 39.6 35.6 - 45.5 % [facility] Plt 253 150 - 400 K/cumm [facility] MPV 9.8 9.1 - 12.3 fL [facility] RBC 4.51 3.90 - 5.20 M/cumm [facility] MCV 87.8 81.3 - 96.4 fL [facility] MCH 30.4 27.1 - 33.3 pg [facility] MCHC 34.6 32.3 - 35.7 g/dL [facility] RDW CV 12.6 11.1 - 14.9 % [facility] RDW SD 39.9 35.7 - 48.1 fL [facility] NRBC abs 0.00 0.00 - 0.01 K/cumm [facility] Blood specimen (specimen) 03/18/2018 9:56 PM CDT 03/18/2018 10:22 PM CDT Narrative [facility] - 03/18/2018 10:32 PM CDT THE [facility] COLLECTION LOCATION IS [facility] ED1-15 Justo Nuñez MD LAB BLOOD ORDERABLES Final Result [facility] Department [place] [address] * POCT hCG, urine (03/18/2018 5:11 PM CDT) HCG, ur, POC Negative Lot Number [id number] QC Backgroud Clear Acceptable QC Control Line Acceptable Urine 03/18/2018 5:11 PM CDT Hayley Watkins MD POINT OF CARE TEST ORDERABLES Final Result * Urinalysis reflex to microscopic and culture Urine (03/18/2018 5:10 PM CDT) Color, ur Yellow Yellow [facility] Clarity, ur Clear Clear [facility] Specific gravity, ur 1.011 1.010 - 1.025 [facility] pH, urine 6.0 [facility] Protein, ur ql Negative Negative [facility] Glucose, ur ql Negative Negative [facility] Ketones, ur Negative Negative [facility] Bilirubin, ur Negative Negative [facility] Blood, ur Negative Negative [facility] Urobilinogen, ur <2.0 <2.0 mg/dL [facility] Nitrite, ur Negative Negative [facility] Leukocyte esterase, ur Negative Negative [facility] Urine 03/18/2018 5:10 PM CDT 03/18/2018 5:25 PM CDT Narrative [facility] - 03/18/2018 5:40 PM CDT THE [facility] COLLECTION LOCATION IS Urine pH is affected by diet, medications, systemic acid-base disturbances, and renal tubular function. ??pH may affect urinary stone formation. ??For example, urine pH below 6.0 may help reduce the tendency for calcium phosphate stones and pH greater than 6.0 may reduce the tendency for uric acid stone formation. Source: [place]. Last revised 08-22-2017 us Hayley Watkins MD LAB MICROBIOLOGY - GENERAL ORD ERABLES Final Result [facility] Department [place] [address] documented in this encounter Visit Diagnoses Diagnosis Chest wall pain- Primary Painful respiration Flank pain Abdominal pain, unspecified site documented in this encounter Administered Medications Inactive Administered Medications - up to 3 most recent administrations Medication Order MAR Action Action Date Dose Rate Site acetaminophen (TYLENOL) tablet 1,000 mg 1,000 mg, oral, Once, On Sat03/18/18 at 1503, For 1 dose, Indications: PainIndications:Pain Given 03/18/2018 3:05 PM CDT 1,000 mg diphenhydrAMINE (BENADRYL) injection 25 mg 25 mg, intravenous, Administer over 1 Minutes, Once, On Sat03/18/18 at 2310, For 1 dose Given 03/18/2018 11:22 PM CDT 25 mg ioversol (OPTIRAY 350) syringe syringe 100 mL 100 mL, intravenous, Once in imaging, contrast, Starting on Sat03/19/18 at 0036, For 1 dose Given 03/19/2018 12:50 AM CDT 100 mL Left Antecubital orphenadrine (NORFLEX) injection 60 mg 60 mg, intramuscular, Once, On Sat03/18/18 at 2157, For 1 dose, Indications: Muscle SpasmIndications:Muscle Spasm Given 03/18/2018 11:18 PM CDT 60 mg Right Deltoid prochlorperazine (COMPAZINE) injection 10 mg 10 mg, intravenous, Once, On Sat03/18/18 at 2310, For 1 dose Given 03/18/2018 11:21 PM CDT 10 mg documented in this encounter Discontinued Medications Medication Sig Discontinue Reason Start Date End Da te HYDROcodone-acetaminophen (NORCO) 5-325 mg per tabletIndications:Pain Take 1-2 tablets by mouth every 4 (four) hours as needed for pain (1 tablet for mild to moderate pain or 2 tablets for severe pain). Do not exceed 8 tablets/day. 11/08/2017 03/18/2018 ondansetron ODT (ZOFRAN-ODT) 4 mg disintegrating tablet Dissolve 1 tablet for mild to moderate nausea or vomiting or 2 tablets for severe nausea or vomiting oral twice a day as needed. 11/08/2017 03/18/2018 documented as of this encounter Active and Recently Administered Medications Times are shown in CDT. Scheduled Medication Order 03/17/2018 03/18/2018 03/19/2018 acetaminophen (TYLENOL) tablet 1,000 mg (COMPLETED) 1,000 mg, oral, Once, On Sat03/18/18 at 1503, For 1 dose, Indications: Pain 1505 (Given - Provider: Cash Stack RN) diphenhydrAMINE (BENADRYL) injection 25 mg (COMPLETED) 25 mg, intravenous, Administer over 1 Minutes, Once, On Sat03/18/18 at 2310, For 1 dose 2322 (Given - Provider: Priscilla Alexandre, KHADAR) orphenadrine (NORFLEX) injection 60 mg (COMPLETED) 60 mg, intramuscular, Once, On Sat03/18/18 at 2157, For 1 dose, Indications: Muscle Spasm 2318 (Given - Provider: Priscilla Alexandre, RN - Comment: from pharmacy) prochlorperazine (COMPAZINE) injection 10 mg (COMPLETED) 10 mg, intravenous, Once, On Sat03/18/18 at 2310, For 1 dose 2321 (Given - Provider: Priscilla Alexandre, RN) PRN Medication Order 03/17/2018 03/18/2018 03/19/2018 ioversol (OPTIRAY 350) syringe syringe 100 mL (COMPLETED) 100 mL, intravenous, Once in imaging, contrast, Starting on Sat03/19/18 at 0036, For 1 dose 0050 (Given - Provid er: Destinee Sal, RT) documented in this encounter Orders Nursing Count Last Ordered Date First Orde red Date NURSING COMMUNICATION 2 03/18/2018 documented in this encounter Care Teams Regrader Relationship Specialty Start Date End Date Damian Sadler MD PCP - General 11/29/16 05/18/22 documented as of this encounter
--- OUTSIDE RECORDS SUMMARY | 2024-08-17 01:55 | XMS_ITS | Encounter Summary ---
Author Organization [facility] Healthcare Address [address] [place] [address] Care Team Providers Care Preschool Special Education Teacher Name Role Phone Damian Sadler MD Primary Care Provider [phone] Encounter Details Date Type Department Care Team (Latest Contact Info) Description 10/08/2017 5:05 PM CYLINDER HONER - 10/08/2017 10:54 PM CYLINDER HONER Hospital Encounter [facility] Emergency Department [address] [place] [address] Vijay Mancini MD [address] [facility] [address] [place], [place] [id number] Discharge Disposition: Discharge to home or self care Social History Tobacco Use Types Packs/Day Years Used Date Smoking Tobacco: Never Assessed Comments Unknown Sex and Gender Information Value Date Recorded Sex Assigned at Not on file Legal Sex Female 9:06 PM CYLINDER HONER Gender Identity Female 10/01/2023 8:44 AM CYLINDER HONER Sexual Orientation Straight 10/01/2023 8: 44 AM CYLINDER HONER documented as of this encounter Discharge Disposition Disposition Code Departure Means Destination Discharge to home or self care documented in this encounter Plan of Treatment Not on file documented as of this encounter Procedures Procedure Name Priority Date/Time Associated Diagnosis Comments CT HEAD WO CONTRAST Routine 10/08/2017 1 1:30 PM CYLINDER HONER URINALYSIS AND REFLEX TO MICROSCOPIC STAT 10/08/2017 9:32 PM CYLINDER HONER URINALYSIS, MICROSCOPIC ONLY STAT 10/08/2017 9:32 PM CYLINDER HONER GLUCOSE POC Routine Gen Lab 10/08/2017 6:10 PM CYLINDER HONER TROPONIN I STAT 10/08/2017 5:34 PM CYLINDER HONER APTT STAT 10/08/2017 5:34 PM CYLINDER HONER CBC WITHOUT DIFFERENTIAL STAT 10/08/2017 5:34 PM CYLINDER HONER BASIC METABOLIC PANEL STAT 10/08/2017 5:34 PM CYLINDER HONER PT - PROTHROMBIN TIME, WHOLE BLOOD, POC Routine Gen Lab 10/08/2017 5:31 PM CYLINDER HONER DISCHARGE LABORATORY CUMULATIVE REPORT 10/08/2017 12:00 AM CYLINDER HONER documented in this encounter Results * CT Head WO Contrast (10/08/2017 11:30 PM CYLINDER HONER) Anatomical Region Laterality Modality Head and Neck N/A Computed Tomogra phy 10/08/2017 11:3 0 PM CYLINDER HONER Narrative 10/09/2017 3:02 PM CYLINDER HONER BRYNN SANDOVAL M.D. AARON VALENZUELA M.D. FINAL REPORT The radiology attending physician has personally reviewed this study, and has reviewed and/or edited this written report and agrees with it. ACC# ??Date Time ??Exam [id number] Oct 08, 2017 17:30:[id number] Head or Brain w/o cont EXAMINATION: ??Noncontrast head CT HISTORY: Left facial numbness and left eye double vision. TECHNIQUE: Noncontrast CT of the brain was performed with images acquired from skull base to vertex. COMPARISON: None available. FINDINGS: Topogram demonstrates no lytic lesions or fractures. There is no acute intracranial hemorrhage. Ventricles are of normal size and morphology. No mass effect or midline shift is present. The basilio-white matter differentiation is normal. The visualized portions of the orbits are normal. The visualized portions of the mastoids are normal. The visualized portions of the paranasal sinuses are normal. No fractures are identified. IMPRESSION: ??No acute intracranial abnormality. Electronically signed by: Brynn Sandoval M.D. Requested By: CASEY ACOSTA M.D. Dictated By: ?? AARON VALENZUELA M.D. ??on Oct 08 2017 ??5:41P This document has been electronically signed by: BRYNN SANDOVAL M.D. on Oct 09 2017 ??9:00A [id number] MOULTON M.D. FINAL REPORT The radiology attending physician has personally reviewed this study, and has reviewed and/or edited this written report and agrees with it. Attending: ??TYRA, ??VIJAY Requesting: ??DAVE, ??CASEY Requesting Fax: ?? Attending Fax: ?? Attending ID: ??[id number] Requesting ID: ??[id number] Report To 1 ID: ??[id number] ? Report To 1 Name: ??, ?? Report To 1 FAX: ?? NextGen Order #: ?? Procedure Note Miscellaneous, Not In File - 10/09/2017 Jillian MOULTON M.D. FINAL REPORT The radiology attending physician has personally reviewed this study, and has reviewed and/or edited this written report and agrees with it. ACC# Date Time Exam [id number] Oct 08, 2017 17:30:[id number] Head or Brain w/o cont EXAMINATION: Noncontrast head CT HISTORY: Left facial numbness and left eye double vision. TECHNIQUE: Noncontrast CT of the brain was performed with images acquired from skull base to vertex. COMPARISON: None available. FINDINGS: Topogram demonstrates no lytic lesions or fractures. There is no acute intracranial hemorrhage. Ventricles are of normal size and morphology. No mass effect or midline shift is present. The basilio-white matter differentiation is normal. The visualized portions of the orbits are normal. The visualized portions of the mastoids are normal. The visualized portions of the paranasal sinuses are normal. No fractures are identified. IMPRESSION: No acute intracranial abnormality. Electronically signed by: Brynn Sandoval M.D. Requested By: CASEY ACOSTA M.D. Dictated By: AARON VALENZUELA M.D. on Oct 08 2017 5:41P This document has been electronically signed by: BRYNN SANDOVAL M.D. on Oct 09 2017 9:00A [id number] EDDY M.D. FINAL REPORT The radiology attending physician has personally reviewed this study, and has reviewed and/or edited this written report and agrees with it. Attending: VIJAY MANCINI Requesting: CASEY ACOSTA Requesting Fax: Attending Fax: Attending ID: [id number] Requesting ID: [id number] Report To 1 ID: [id number] Report To 1 Name: , Report To 1 FAX: NextGen Order #: us Casey Acosta MD IMG CT PROCEDURES Final Result * (ABNORMAL) Urinalysis, microscopic only (10/08/2017 9:32 PM CYLINDER HONER) RBC, ur 0 0 - 3 /HPF [facility] WBC, ur 28(H) 0 - 5 /HPF [facility] Bacteria, ur 1+ Trace [facility] Epithelial cells, renal, ur 0 0 - 0 /HPF [facility] Epithelial cells, squamous, ur >20 /LPF [facility] Mucus, ur Small /HPF [facility] Hyaline casts, ur 1(H) 0 - 0 /LPF [facility] Urine 10/08/2017 9:32 PM CYLINDER HONER 10/08/2017 9:38 PM CYLINDER HONER Narrative [facility] - 10/08/2017 10:02 PM CYLINDER HONER us Casey Acosta MD LAB URINE ORDERABLES Final Res ult [facility] Department [place] [address] * (ABNORMAL) Urinalysis reflex to microscopic (10/08/2017 9:32 PM CYLINDER HONER) Pathologist [facility] Color, ur Straw Yellow [facility] Clarity, ur Cloudy(A) Clear [facility] Specific gravity, ur 1.006 1.003 - 1.030 [facility] pH, ur 6.0 5.0 - 8.0 [facility] Albumin, ur Negative Trace [facility] Glucose, ur ql Negative Negative [facility] Ketones, ur Negative Negative [facility] Bilirubin, ur Negative Negative [facility] Blood, ur Negative Negative [facility] Urobilinogen, ur <2.0 <2.0 mg/dL [facility] Nitrites, ur Negative Negative [facility] Leukocyte esterase, ur 3+(A) Negative [facility] Urine 10/08/2017 9:32 PM CYLINDER HONER 10/08/2017 9:38 PM CYLINDER HONER Narrative [facility] - 10/08/2017 9:51 PM CYLINDER HONER us Casey Acosta MD LAB URINE ORDERABLES Final Res ult [facility] Department [place] [address] * Glucose POC (10/08/2017 6:10 PM CYLINDER HONER) [facility] Glucose, POC 91 70 - 199 mg/dL [facility] Blood specimen (specimen) 10/08/2017 6:10 PM CYLINDER HONER 10/08/2017 6:10 PM CYLINDER HONER Narrative [facility] - 10/08/2017 6:32 PM CYLINDER HONER us Notinfile Unknown POINT OF CARE TEST ORDERABLES Final Result [facility] [place] [address] * Troponin I (10/08/2017 5:34 PM CYLINDER HONER) [facility] Troponin I <0.03 0.00 - 0.03 ng/mL [facility] Comment: Interpretive Data Serial determinations are recommended for the diagnosis of myocardial infarction (Third [place] Definition of Myocardial Infarction. ??J Am Haris Cardiol 2012;60:1581-98). Current interpretive data was last revised on 13. Blood specimen (specimen) 10/08/2017 5:34 PM CYLINDER HONER 10/08/2017 5:56 PM CYLINDER HONER Narrative [facility] - 10/08/2017 6:27 PM CYLINDER HONER us Casey Acosta MD LAB BLOOD ORDERABLES Final Res ult [facility] Department [place] [address] * Basic metabolic panel (10/08/2017 5:34 PM CYLINDER HONER) Sodium 140 135 - 145 mmol/L [facility] Potassium, pl 3.8 3.3 - 4.9 mmol/L [facility] Chloride 106 97 - 110 mmol/L [facility] CO2 24 22 - 32 mmol/L [facility] BUN 9 8 - 25 mg/dL [facility] Glucose 78 70 - 199 mg/dL [facility] Comment: Interpretive Data Fasting glucose >/= 126 [...] interpretive data was last revised 2017. Creatinine 0.65 0.60 - 1.10 mg/dL [facility] Calcium 9.4 8.5 - 10.3 mg/dL [facility] Anion gap 10 2 - 15 mmol/L [facility] Blood specimen (specimen) 10/08/2017 5:34 PM CYLINDER HONER 10/08/2017 5:56 PM CYLINDER HONER Narrative [facility] - 10/08/2017 6:22 PM CYLINDER HONER us Casey Acosta MD LAB BLOOD ORDERABLES Final Res ult Performing Organization Address [facility] Co de Phone Number [facility] Department [place] [address] * CBC without differential (10/08/2017 5:34 PM CYLINDER HONER) WBC 9.6 3.8 - 9.9 K/cumm [facility] RBC 4.79 3.90 - 5.20 M/cumm [facility] Hgb 14.4 11.9 - 15.5 g/dL [facility] Hct 42.1 35.6 - 45.5 % [facility] MCV 87.9 81.3 - 96.4 fL [facility] MCH 30.1 27.1 - 33.3 pg [facility] MCHC 34.2 32.3 - 35.7 g/dL [facility] RDW CV 12.4 11.1 - 14.9 % [facility] RDW SD 40.1 35.7 - 48.1 fL [facility] NRBC abs 0.00 0.00 - 0.01 K/cumm [facility] Plt 252 150 - 400 K/cumm [facility] MPV 9.9 9.1 - 12.3 fL [facility] Blood specimen (specimen) 10/08/2017 5:34 PM CYLINDER HONER 10/08/2017 5:56 PM CYLINDER HONER Narrative [facility] - 10/08/2017 6:04 PM CYLINDER HONER us Casey Acosta MD LAB BLOOD ORDERABLES Final Res ult Performing Organization Address City/[facility]/ZIP Co de Phone Number [facility] Department [place] [address] * aPTT (10/08/2017 5:34 PM CYLINDER HONER) aPTT 29.5 25.0 - 37.0 sec [facility] Comment: Interpretive Data Therapeutic heparin range:60.0 - 94.0 sec based on correlation with therapeutic heparin activity range of 0.3 -0.7 Units/mL. Current interpretive data was last revised on 2011. Blood specimen (specimen) 10/08/2017 5:34 PM CYLINDER HONER 10/08/2017 5:48 PM CYLINDER HONER Narrative [facility] - 10/08/2017 6:04 PM CYLINDER HONER Casey Acosta MD LAB BLOOD ORDERABLES Final Res ult Performing Organization Address City/[facility]/ZIP Co de Phone Number [facility] [place] [address] * PT - Prothrombin Time, Whole Blood, POC (10/08/2017 5:31 PM CYLINDER HONER) PT, POC 11.9 10.6 - 13.5 sec [facility] INR, bld, POC 1.0 0.8 - 1.2 [facility] Blood specimen (specimen) 10/08/2017 5:31 PM CYLINDER HONER 10/08/2017 5:31 PM CYLINDER HONER Narrative [facility] - 10/08/2017 5:43 PM CYLINDER HONER Notinfile Unknown LAB BLOOD ORDERABLES Final Res ult Performing Organization Address [facility]/ZIP Co de Phone Number [facility] Department [place] [address] * DISCHARGE LABORATORY CUMULATIVE REPORT (10/08/2017 12:00 AM CYLINDER HONER) Narrative 10/08/2017 12:00 AM CYLINDER HONER Ordered by an unspecified provider. Historical Provider LAB BLOOD ORDERABLES Sandra l Result documented in this encounter Visit Diagnoses Not on filedocumented in this encounter Care Teams Preschool Special Education Teacher Relationship Specialty Start Date End Date Damian Sadler MD PCP - General 11/29/16 05/18/22 documented as of this encounter
--- OUTSIDE RECORDS SUMMARY | 2024-08-17 01:55 | XMS_ITS | Encounter Summary ---
Author Organization [facility] Healthcare Address [address] [place] [address] Care Team Providers Care Event Producer Name Role Phone Damian Sadler MD Primary Care Provider [phone] Encounter Details Date Type Department Care Team (Late st Contact Info) Description 11/08/2017 11:07 AM CDT - 11/08/2017 11:59 PM CDT Hospital Encounter [facility] [address] [place] [address] Unknown, Anaid Burrell MD [address] [place] [id number] Right flank pain Discharge Disposition: Discharge to home or self care Social History Tobacco Use Types Packs/Day Years Used Date Smoking Tobacco: Every Day Cigarettes Smokeless Tobacco: Never Comments No Sex and Gender Information Value Date Recorded Sex Assigned at Not on file Legal Sex Female 9:06 PM PRODUCTION CONTROL MANAGER Gender Identity Female 10/01/2023 8:44 AM PRODUCTION CONTROL MANAGER Sexual Orientation Straight 10/01/2023 8: 44 AM PRODUCTION CONTROL MANAGER documented as of this encounter Medications at Time of Discharge MULTIVIT-MINERALS/FE RROUS FUM (MULTI VITAMIN ORAL)Indications:hea lth Take 1 tablet by mouth channeler outsole 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 omeprazole (PriLOSEC) 20 mg capsuleIndications:T reatment of Non-Bleeding Gastric Disorder Take 1 capsule (20 mg total) by mouth channeler outsole 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 HYDROcodone-acetamin ophen (NORCO) 5-325 mg [...] 11/08/2017 8 documented as of this encounter Discharge Disposition Disposition Code Departure Means Destination Discharge to home or self care documented in this encounter Plan of Treatment Not on file documented as of this encounter Procedures Procedure Name Priority Date/Time Associated Diagnosis Comments NM DIURETIC RENAL IMAGING (LASIX RENAL SCAN) Schedule Routine, Read Routine (OP Routine) 11/08/2017 12:03 PM CDT Right flank pain documented in this encounter Results * NM Renal Imaging Flow and Function W Pharmacologic Intervention (11/08/2017 12:03 PM CDT) Anatomical Region Laterality Modality Body N/A Nuclear Medicine Impressions 11/08/2017 2:31 PM CDT 1. ??NO EVIDENCE OF OBSTRUCTION. 2. ??EVIDENCE OF MILDLY DIMINISHED FUNCTION FOR BOTH KIDNEYS. Electronically signed by: Louise Key 11/08/2017 2:31 PM CDT NM RENAL IMAGING FLOW AND FUNCTION W PHARMACOLOGIC INTERVENTION HISTORY: Unspecified abdominal pain. ??Right flank pain. ??History of kidney stones. TECHNIQUE: 5.2 mCi technetium 99m MAG3. ??40 mg of Lasix administered intravenously. COMPARISON: CT from [facility] of 12/29/2015. FINDINGS: On the flow study prompt activity is seen for both kidneys bilaterally. ??On the renogram portion examination prompt uptake and excretion is seen by the kidneys bilaterally. The peak for the right kidney is at 9.60 minutes. ??The peak for the left kidney is at 8.73 minutes. ??Both peaks are somewhat delayed, supporting diminished renal function. ??Rapidly downgoing slow for both kidneys. ??Relative function gives 51% for the right kidney 49% for left kidney.. Procedure Note Anson Ritter MD - 11/08/2017 NM RENAL IMAGING FLOW AND FUNCTION W PHARMACOLOGIC INTERVENTION HISTORY: Unspecified abdominal pain. Right flank pain. History of kidney stones. TECHNIQUE: 5.2 mCi technetium 99m MAG3. 40 mg of Lasix administered intravenously. COMPARISON: CT from [facility] of 12/29/2015. FINDINGS: On the flow study prompt activity is seen for both kidneys bilaterally. On the renogram portion examination prompt uptake and excretion is seen by the kidneys bilaterally. The peak for the right kidney is at 9.60 minutes. The peak for the left kidney is at 8.73 minutes. Both peaks are somewhat delayed, supporting diminished renal function. Rapidly downgoing slow for both kidneys. Relative function gives 51% for the right kidney 49% for left kidney.. IMPRESSION: 1. NO EVIDENCE OF OBSTRUCTION. 2. EVIDENCE OF MILDLY DIMINISHED FUNCTION FOR BOTH KIDNEYS. Electronically signed by: Anson Ritter M.D us Notinfile Unknown IMG NM PROCEDURES Final Result documented in this encounter Visit Diagnoses Diagnosis Right flank pain Abdominal pain, unspecified site documented in this encounter Administered Medications Inactive Administered Medications - up to 3 most recent administrations Medication Order MAR Action Action Date Dose Rate Site furosemide (LASIX) injection 40 mg 40 mg, intravenous, Once, On Sat11/08/17 at 1300, For 1 dose, Room temperature only Given 11/08/2017 11:35 AM CDT 40 mg tc-99m mertiatide (MAG3) injection 5.2 millicurie 5.2 millicurie, intravenous, Once in imaging, radiopharmaceutical, Starting on Sat11/08/17 at 1130, For 1 dose Given 11/08/2017 11:25 AM CDT 5.2 millicuries documented in this encounter Care Teams Event Producer Relationship Specialty Start Date End Date Damian Sadler MD PCP - General 11/29/16 05/18/22 documented as of this encounter
--- OUTSIDE RECORDS SUMMARY | 2024-08-17 01:55 | XMS_ITS | Encounter Summary ---
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 Name Role Phone Unavailable Primary Care Provider Unavailabl e Encounter Details Date Type Department Care Team (Latest Contact Info) Description 05/14/2016 9:01 PM CDT - 05/15/2016 8:19 PM CDT Hospital Encounter [facility] Tomasz Ross MD PhD [address] [place] [address] Other dorsalgia; Other disturbances of skin sensation; Other disorders of meninges, not elsewhere classified; Disease of spinal cord (CMS/HCC); Cigarette nicotine dependence, uncomplicated; Acquired absence of both cervix and uterus Social History Tobacco Use Types Packs/Day Years Used Date Smoking Tobacco: Never Assessed Comments Unknown Sex and Gender Information Value Date Recorded Sex Assigned at Not on file Legal Sex Female 9:06 PM SOCIAL SERVICE ASSISTANT Gender Identity Female 10/01/2023 8:44 AM SOCIAL SERVICE ASSISTANT Sexual Orientation Straight 10/01/2023 8: 44 AM SOCIAL SERVICE ASSISTANT documented as of this encounter Consult Notes * Provider, MD Margarita - 05/15/2016 12:00 AM CDT Patient: TITA MARSH Reg No: [id number] U H #: [id number] Admit Dt.: 05/14/2016 : 1980 Room No: Attending: Tomasz Jane MD PHD Consulting: Filiberto Holt M.D. Dictating: Israel Knapp M.D. Service Dt: 05/15/2016 CONSULTATION REPORT REASON FOR CONSULTATION: Gait abnormality. BRIEF HISTORY: This is a 36-year-old right-handed female with a history of hypertension and gastroesophageal reflux who presents for evaluation of lower extremity instability, as well as bilateral upper and lower extremity paresthesias. She states that her symptoms began approximately two months ago with bilateral lower extremity paresthesias that travel down the backs of both legs to the bottoms of her feet. She states that these paresthesias have given her difficulty with ambulation and they have gotten worse over time. She also states she has had paresthesias in her bilateral upper extremities that radiate down the inner part of her arm to her third and fourth digits bilaterally. She says that these are intermittent and usually occur when exerting herself or holding her arms out in front of her against resistance. She presented to the emergency room for evaluation of these issues. On evaluation, a magnetic resonance imaging of the entire spine was performed. This demonstrated a couple of different findings. First, she was noted to have degenerative cervical disease primarily at C3-4 and C4-5 with evidence of autofusion at the area of C6-7. In addition to this, on her thoracic spine she was found to have an extradural cyst at T11 and T12 causing minimal compression. Cervical spine lesions also caused abutment of the cord but no specific compression and no T2 signal change. Initially, Orthopedic Surgery was consulted for evaluation and saw the patient. The Orthopedic Spine Team requested a second opinion from the Neurosurgery Team, which initiated this consult. On evaluation, the patient denies any back pain or neck pain. She denies any weakness or numbness in her bilateral upper or lower extremities. she does complain of gait instability. REVIEW OF SYSTEMS: A 10-point review of systems is negative unless otherwise indicated in the history of present illness. PAST MEDICAL HISTORY: 1. Hypertension. 2. Gastroesophageal reflux disease. PAST SURGICAL HISTORY: 1. Three prior sections. 2. Left elbow surgery. ALLERGIES: No known drug allergies. MEDICATIONS: 1. Lisinopril. 2. Omeprazole. FAMILY HISTORY: Father had trigeminal neuralgia. Paternal grandparents had strokes. Her mother's side of the family has diabetes. SOCIAL HISTORY: The patient is a uhya-blcs-yss-day smoker. She does not drink and does not use illicit drugs. 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 She is . She has six kids, three of whom are stepchildren. PHYSICAL EXAMINATION: Neurologic: The patient opens eyes spontaneously, follows commands, regards. Her speech is clear and fluent. She is alert and oriented times three to person, place and time. Pupils equal, reactive to light. Extraocular muscles intact. Face is symmetric. Tongue is midline. She has no pronator drift. Strength is 5/5 in bilateral upper and lower extremities, including intrinsic hand conservation enforcement officer, biceps, triceps, deltoids, iliopsoas, quadriceps, hamstrings, tibialis anterior and extensor hallucis longus. She has sensation intact to light touch and pinprick throughout upper and lower extremities. Reflexes are 1+ in biceps, 1+ in triceps, 1+ in brachioradialis, 3+ in patellar, 2+ in Achilles. She has a negative Dyer's, negative Babinski, no clonus. Her reflexes are all symmetric. Her gait is somewhat unstable. IMPRESSION: This is a 36-year-old female with evidence of cervical degenerative disk disease and a T11-T12 extradural minimally compressive cyst. RECOMMENDATIONS: Would recommend patient followup in Neurosurgery Clinic with Dr. Filiberto Holt for further evaluation of these abnormalities. No urgent neurosurgical intervention is indicated. This plan was discussed with the chief resident, Dr. Sara Wilson, as well as with the attending physician, Dr. Filiberto Holt, who agreed with the plan. Electronically Authenticated and Edited by: Filiberto Holt MD On 05/16/2016 04:02 PM CDT Israel Knapp M.D. Filiberto Holt M.D. PTS:lp #[id number] Editing MT: TD: 05/15/2016 10:29 PM cc: Jillian Lai MD PHD Filiberto Holt M.D. documented in this encounter Plan of Treatment Not on file documented as of this encounter Procedures Procedure Name Priority Date/Time Associated Diagnosis Comments CT LUMBAR SPINE WO CONTRAST Routine 05/15/2016 1:[address] THORACIC SPINE WO CONTRAST Routine 05/15/2016 1:10 PM CDT MRI LUMBAR SPINE W WO CONTRAST Routine 05/15/2016 9:45 AM CDT MRI THORACIC SPINE W WO CONTRAST Routine 05/15/2016 9:45 AM CDT MRI CERVICAL SPINE W WO CONTRAST Routine 05/15/2016 9:[address] CERVICAL SPINE WO CONTRAST Routine 05/15/2016 5:[address] HEAD WO CONTRAST Routine 05/15/2016 5 :49 AM CDT XR SPINE CERVICAL 2 OR 3 VIEWS Routine 05/14/2016 10:21 PM CDT XR SPINE LUMBAR 2 OR 3 VIEWS Routine 05/14/2016 10:18 PM CDT XR SPINE THORACIC 3 VIEWS Routine 05/14/2016 10:18 PM CDT documented in this encounter Results * CT Thoracic Spine WO Contrast (05/15/2016 1:10 PM CDT) Anatomical Region Laterality Modality Spine N/A Computed Tomogra phy 05/15/2016 1:10 PM CDT Narrative 05/15/2016 10:03 PM CDT QASIM ANDERSON M.D. CHANNING CORDOVA M.D. FINAL REPORT The radiology attending physician has personally reviewed this study, and has reviewed and/or edited this written report and agrees with it. ACC# ??Date Time ??Exam [id number] May 15, 2016 13:10:[id number] Thoracic Spine w/o con [id number] May 15, 2016 13:10:[id number] Lumbar Spine w/o con EXAMINATION: ?? CT of the thoracic spine without contrast CT of the lumbar spine without contrast HISTORY: 36-year-old woman that felt a pop in her neck and now has shooting pain down both legs. TECHNIQUE: CT of the thoracic and lumbar spine was performed according to standard protocols without intravenous contrast. 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 There is disc osteophyte complexes at C4-C5 and C5-C6. There are 12 rib-bearing thoracic vertebrae. The alignment of the thoracolumbar spine is normal. There is increased kyphosis at T11-T12. There is no acute fracture. Vertebral bodies are normal in height without compression fractures. Intervertebral disk heights are normal. There is a disc bulge at T10-T11 and T11-T12. ??There is no soft tissue abnormality. The aorta appears normal. The lumbar spine demonstrates normal alignment, normal disc configuration, no neuroforaminal stenosis, and no spinal canal stenosis. IMPRESSION: ?? 1. Disc bulge at T10-T11 and T11-T12 2. Normal lumbar spine. Requested By: ROSANNA RODRIGUEZ ANP Dictated By: ?? CHANNING CORDOVA M.D. ??on May?2015 ??3:48P This document has been electronically signed by: QASIM ANDERSON M.D. on May ??2015 10:03P [id number] Procedure Note Provider, MD Magrarita - 12/17/2016 QASIM ANDERSON M.D. CHANNING CORDOVA M.D. FINAL REPORT The radiology attending physician has personally reviewed this study, and has reviewed and/or edited this written report and agrees with it. ACC# Date Time Exam [id number] May 15, 2016 13:10:[id number] Thoracic Spine w/o con [id number] May 15, 2016 13:10:[id number] Lumbar Spine w/o con EXAMINATION: CT of the thoracic spine without contrast CT of the lumbar spine without contrast HISTORY: 36-year-old woman that felt a pop in her neck and now has shooting pain down both legs. TECHNIQUE: CT of the thoracic and lumbar spine was performed according to standard protocols without intravenous contrast. 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 There is disc osteophyte complexes at C4-C5 and C5-C6. There are 12 rib-bearing thoracic vertebrae. The alignment of the thoracolumbar spine is normal. There is increased kyphosis at T11-T12. There is no acute fracture. Vertebral bodies are normal in height without compression fractures. Intervertebral disk heights are normal. There is a disc bulge at T10-T11 and T11-T12. There is no soft tissue abnormality. The aorta appears normal. The lumbar spine demonstrates normal alignment, normal disc configuration, no neuroforaminal stenosis, and no spinal canal stenosis. IMPRESSION: 1. Disc bulge at T10-T11 and T11-T12 2. Normal lumbar spine. Requested By: ROSANNA RODRIGUEZ ANP Dictated By: CHANNING CORDOVA M.D. on May 15 2016 3:48P This document has been electronically signed by: QASIM ANDERSON M.D. on May 15 2016 10:03P [id number] Historical Provider MD HOLDEN CT PROCEDURES Final R esult * CT Lumbar Spine WO Contrast (05/15/2016 1:10 PM CDT) Anatomical Region Laterality Modality Spine N/A Computed Tomogra phy 05/15/2016 1:10 PM CDT Narrative 05/15/2016 10:03 PM CDT Jillian LEONG M.D. FINAL REPORT The radiology attending physician has personally reviewed this study, and has reviewed and/or edited this written report and agrees with it. ACC# ??Date Time ??Exam [id number] May 15, 2016 13:10:[id number] Thoracic Spine w/o con [id number] May 15, 2016 13:10:[id number] Lumbar Spine w/o con EXAMINATION: ?? CT of the thoracic spine without contrast CT of the lumbar spine without contrast HISTORY: 36-year-old woman that felt a pop in her neck and now has shooting pain down both legs. TECHNIQUE: CT of the thoracic and lumbar spine was performed according to standard protocols without intravenous contrast. 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 There is disc osteophyte complexes at C4-C5 and C5-C6. There are 12 rib-bearing thoracic vertebrae. The alignment of the thoracolumbar spine is normal. There is increased kyphosis at T11-T12. There is no acute fracture. Vertebral bodies are normal in height without compression fractures. Intervertebral disk heights are normal. There is a disc bulge at T10-T11 and T11-T12. ??There is no soft tissue abnormality. The aorta appears normal. The lumbar spine demonstrates normal alignment, normal disc configuration, no neuroforaminal stenosis, and no spinal canal stenosis. IMPRESSION: ?? 1. Disc bulge at T10-T11 and T11-T12 2. Normal lumbar spine. Requested By: ROSANNA RODRIGUEZ ANP Dictated By: ?? CHANNING CORDOVA M.D. ??on May?2015 ??3:48P This document has been electronically signed by: QASIM ANDERSON M.D. on May?2015 10:03P [id number] Procedure Note Provider, MD Margarita - 12/17/2016 QASIM ANDERSON M.D. CHANNING CORDOVA M.D. FINAL REPORT The radiology attending physician has personally reviewed this study, and has reviewed and/or edited this written report and agrees with it. ACC# Date Time Exam [id number] May 15, 2016 13:10:[id number] Thoracic Spine w/o con [id number] May 15, 2016 13:10:[id number] Lumbar Spine w/o con EXAMINATION: CT of the thoracic spine without contrast CT of the lumbar spine without contrast HISTORY: 36-year-old woman that felt a pop in her neck and now has shooting pain down both legs. TECHNIQUE: CT of the thoracic and lumbar spine was performed according to standard protocols without intravenous contrast. 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 There is disc osteophyte complexes at C4-C5 and C5-C6. There are 12 rib-bearing thoracic vertebrae. The alignment of the thoracolumbar spine is normal. There is increased kyphosis at T11-T12. There is no acute fracture. Vertebral bodies are normal in height without compression fractures. Intervertebral disk heights are normal. There is a disc bulge at T10-T11 and T11-T12. There is no soft tissue abnormality. The aorta appears normal. The lumbar spine demonstrates normal alignment, normal disc configuration, no neuroforaminal stenosis, and no spinal canal stenosis. IMPRESSION: 1. Disc bulge at T10-T11 and T11-T12 2. Normal lumbar spine. Requested By: ROSANNA RODRIGUEZ ANP Dictated By: CHANNING CORDOVA M.D. on May 15 2016 3:48P This document has been electronically signed by: QASIM ANDERSON M.D. on May 15 2016 10:03P [id number] us Historical Provider MD HOLDEN CT PROCEDURES Final R esult * MRI Cervical Spine W WO Contrast (05/15/2016 9:45 AM CDT) Anatomical Region Laterality Modality Spine N/A Magnetic Resonan ce 05/15/2016 9:45 AM CDT Narrative 05/15/2016 1:00 PM CDT HAMMAD MATOS M.D. SARA CARRASCO M.D. FINAL REPORT The radiology attending physician has personally reviewed this study, and has reviewed and/or edited this written report and agrees with it. ACC# ??Date Time ??Exam [id number] May 15, 2016 09:45:00 [id number] MRI Cervical Spn wo&wi con [id number] May 15, 2016 09:45:00 [id number] MRI ThoracicSpn wo&wi cont [id number] May 15, 2016 09:45:00 [id number] MRI Lumbar Spn wo&wi cont EXAMINATION: ?? Magnetic resonance imaging (MRI) of the cervical spine without and with contrast Magnetic resonance imaging (MRI) of the thoracic spine without and with contrast Magnetic resonance imaging (MRI) of the lumbar spine without and with contrast HISTORY: Sensory changes TECHNIQUE: Multiplanar multi-weighted MRI of the entire spine was performed without and with intravenous contrast using the standard total spine protocol. Contrast information: 20 mL Dotarem COMPARISON: None available. FINDINGS: CERVICAL SPINE: There is mild retrolisthesis of C4 and 5, C5 on 6. 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 Vertebral bodies demonstrate normal signal intensity on all sequences. No acute fracture is identified; however, if trauma is suspected, a CT scan would be a more sensitive examination for fractures. The craniocervical junction is normal. The visualized portions of the skull base and the posterior fossa are normal. The spinal cord demonstrates normal signal intensity on all sequences. There is multilevel degenerative disc disease of the cervical spine, most prominent at C4-C5, C5-C6.. There are no annular fissures identified. No soft tissue abnormality is identified. Normal signal voids are present in the vertebral arteries. There are no areas of abnormal contrast enhancement. C2-C3: The disk is normal in configuration. There is no facet arthropathy. There is no uncovertebral joint disease. There is no neuroforaminal stenosis. There is no spinal canal stenosis. C3-C4: The disk is normal in configuration. There is no facet arthropathy. There is no uncovertebral joint disease. There is no neuroforaminal stenosis. There is no spinal canal stenosis. C4-C5: Small paracentral disc protrusion. There is no facet arthropathy. There is no uncovertebral joint disease. There is no neuroforaminal stenosis. There is mild spinal canal stenosis. C5-C6: Minimal disc bulge. There is no facet arthropathy. There is mild bilateral uncovertebral joint disease. There is mild bilateral neuroforaminal stenosis. There is no spinal canal stenosis. C6-C7: The disk is normal in configuration. There is no facet arthropathy. There is no uncovertebral joint disease. There is no neuroforaminal stenosis. There is no spinal canal stenosis. C7-T1: The disk is normal in configuration. There is no facet arthropathy. There is no uncovertebral joint disease. There is no neuroforaminal stenosis. There is no spinal canal stenosis. THORACIC SPINE: The alignment of the thoracic spine is normal. Vertebral bodies demonstrate normal signal intensity on all sequences. There are no compression fractures. The spinal cord demonstrates normal signal intensity on all sequences. Mild multilevel disc desiccation and bulge, most prominent at T10-T11, T11-T12. Limited views of the chest and abdomen show no soft tissue abnormality. The aorta is normal. There are no areas of abnormal contrast enhancement. On the lateral aspect of the thecal sac at the level of T6-T7, there is a T2 hyperintense extradural mass, centered in the region of the lateral recess, which may represent a heike- neural cyst. 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 This lesions causes mild scalloping of the adjacent vertebral body and neuroforamen. This lesion demonstrates mild mass effect of the thecal sac in conjunction with disc bulge causing leftward displacement of the thecal sac, resulting in mild left neuroforaminal and spinal canal stenosis at T11-T12. There is no evidence of cord signal abnormality within the lower thoracic cord. LUMBAR SPINE: The alignment of the lumbar spine is normal. Vertebral bodies demonstrate normal signal intensity on all sequences. There are no compression fractures. The conus medullaris terminates at the level of L1-L2. The distal spinal cord signal intensity is normal. Intervertebral disks have normal height and signal intensity. There are no annular fissures identified. Limited views of the abdomen and pelvis show no soft tissue abnormality. The aorta is normal. There are no areas of abnormal contrast enhancement. L1-L2: The disc is normal in configuration. There is no facet arthropathy. There is no neuroforaminal stenosis. There is no spinal canal stenosis. L2-L3: The disc is normal in configuration. There is no facet arthropathy. There is no neuroforaminal stenosis. There is no spinal canal stenosis. L3-L4: The disc is normal in configuration. There is no facet arthropathy. There is no neuroforaminal stenosis. There is no spinal canal stenosis. L4-L5: The disc is normal in configuration. There is no facet arthropathy. There is no neuroforaminal stenosis. There is no spinal canal stenosis. L5-S1: The disc is normal in configuration. There is no facet arthropathy. There is no neuroforaminal stenosis. There is no spinal canal stenosis. IMPRESSION: ?? 1. 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 2. No abnormal cord signal abnormality in the entire spine. 3. Minimal degenerative changes of the lower cervical spine, most prominent at C4-C5, C5-C6, leading to mild spinal canal stenosis at C4-C5 an mild bilateral or foraminal stenosis at C5-C6. 4. No significant foraminal or spinal canal stenosis in the lumbar spine. Requested By: GUICHO DIAS M.D. Dictated By: ?? SARA CARRASCO M.D. ??on May ??2015 11:04A This document has been electronically signed by: HAMMAD MATOS M.D. on May ??2015 ??1:00P [id number] Procedure Note Provider, MD Margarita - 12/17/2016 HAMMAD MATOS M.D. SARA CARRASCO M.D. FINAL REPORT The radiology attending physician has personally reviewed this study, and has reviewed and/or edited this written report and agrees with it. ACC# Date Time Exam [id number] May 15, 2016 09:45:00 [id number] MRI Cervical Spn wo&wi con [id number] May 15, 2016 09:45:00 [id number] MRI ThoracicSpn wo&wi cont [id number] May 15, 2016 09:45:00 [id number] MRI Lumbar Spn wo&wi cont EXAMINATION: Magnetic resonance imaging (MRI) of the cervical spine without and with contrast Magnetic resonance imaging (MRI) of the thoracic spine without and with contrast Magnetic resonance imaging (MRI) of the lumbar spine without and with contrast HISTORY: Sensory changes TECHNIQUE: Multiplanar multi-weighted MRI of the entire spine was performed without and with intravenous contrast using the standard total spine protocol. Contrast information: 20 mL Dotarem COMPARISON: None available. FINDINGS: CERVICAL SPINE: There is mild retrolisthesis of C4 and 5, C5 on 6. 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 Vertebral bodies demonstrate normal signal intensity on all sequences. No acute fracture is identified; however, if trauma is suspected, a CT scan would be a more sensitive examination for fractures. The craniocervical junction is normal. The visualized portions of the skull base and the posterior fossa are normal. The spinal cord demonstrates normal signal intensity on all sequences. There is multilevel degenerative disc disease of the cervical spine, most prominent at C4-C5, C5-C6.. There are no annular fissures identified. No soft tissue abnormality is identified. Normal signal voids are present in the vertebral arteries. There are no areas of abnormal contrast enhancement. C2-C3: The disk is normal in configuration. There is no facet arthropathy. There is no uncovertebral joint disease. There is no neuroforaminal stenosis. There is no spinal canal stenosis. C3-C4: The disk is normal in configuration. There is no facet arthropathy. There is no uncovertebral joint disease. There is no neuroforaminal stenosis. There is no spinal canal stenosis. C4-C5: Small paracentral disc protrusion. There is no facet arthropathy. There is no uncovertebral joint disease. There is no neuroforaminal stenosis. There is mild spinal canal stenosis. C5-C6: Minimal disc bulge. There is no facet arthropathy. There is mild bilateral uncovertebral joint disease. There is mild bilateral neuroforaminal stenosis. There is no spinal canal stenosis. C6-C7: The disk is normal in configuration. There is no facet arthropathy. There is no uncovertebral joint disease. There is no neuroforaminal stenosis. There is no spinal canal stenosis. C7-T1: The disk is normal in configuration. There is no facet arthropathy. There is no uncovertebral joint disease. There is no neuroforaminal stenosis. There is no spinal canal stenosis. THORACIC SPINE: The alignment of the thoracic spine is normal. Vertebral bodies demonstrate normal signal intensity on all sequences. There are no compression fractures. The spinal cord demonstrates normal signal intensity on all sequences. Mild multilevel disc desiccation and bulge, most prominent at T10-T11, T11-T12. Limited views of the chest and abdomen show no soft tissue abnormality. The aorta is normal. There are no areas of abnormal contrast enhancement. On the lateral aspect of the thecal sac at the level of T6-T7, there is a T2 hyperintense extradural mass, centered in the region of the lateral recess, which may represent a heike- neural cyst. 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 This lesions causes mild scalloping of the adjacent vertebral body and neuroforamen. This lesion demonstrates mild mass effect of the thecal sac in conjunction with disc bulge causing leftward displacement of the thecal sac, resulting in mild left neuroforaminal and spinal canal stenosis at T11-T12. There is no evidence of cord signal abnormality within the lower thoracic cord. LUMBAR SPINE: The alignment of the lumbar spine is normal. Vertebral bodies demonstrate normal signal intensity on all sequences. There are no compression fractures. The conus medullaris terminates at the level of L1-L2. The distal spinal cord signal intensity is normal. Intervertebral disks have normal height and signal intensity. There are no annular fissures identified. Limited views of the abdomen and pelvis show no soft tissue abnormality. The aorta is normal. There are no areas of abnormal contrast enhancement. L1-L2: The disc is normal in configuration. There is no facet arthropathy. There is no neuroforaminal stenosis. There is no spinal canal stenosis. L2-L3: The disc is normal in configuration. There is no facet arthropathy. There is no neuroforaminal stenosis. There is no spinal canal stenosis. L3-L4: The disc is normal in configuration. There is no facet arthropathy. There is no neuroforaminal stenosis. There is no spinal canal stenosis. L4-L5: The disc is normal in configuration. There is no facet arthropathy. There is no neuroforaminal stenosis. There is no spinal canal stenosis. L5-S1: The disc is normal in configuration. There is no facet arthropathy. There is no neuroforaminal stenosis. There is no spinal canal stenosis. IMPRESSION: 1. 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 2. No abnormal cord signal abnormality in the entire spine. 3. Minimal degenerative changes of the lower cervical spine, most prominent at C4-C5, C5-C6, leading to mild spinal canal stenosis at C4-C5 an mild bilateral or foraminal stenosis at C5-C6. 4. No significant foraminal or spinal canal stenosis in the lumbarspine. Requested By: GUICHO DIAS M.D. Dictated By: SARA CARRASCO M.D. on May 15 2016 11:04A This document has been electronically signed by: HAMMAD MATOS M.D. on May 15 2016 1:00P [id number] us Historical Provider MD [facility] MRI PROCEDURES Final Result * MRI Thoracic Spine W WO Contrast (05/15/2016 9:45 AM CDT) Anatomical Region Laterality Modality Spine N/A Magnetic Resonan ce 05/15/2016 9:45 AM CDT Narrative 05/15/2016 1:00 PM CDT HAMMAD MATOS M.D. SARA CARRASCO M.D. FINAL REPORT The radiology attending physician has personally reviewed this study, and has reviewed and/or edited this written report and agrees with it. ACC# ??Date Time ??Exam [id number] May 15, 2016 09:45:00 [id number] MRI Cervical Spn wo&wi con [id number] May 15, 2016 09:45:00 [id number] MRI ThoracicSpn wo&wi cont [id number] May 15, 2016 09:45:00 [id number] MRI Lumbar Spn wo&wi cont EXAMINATION: ?? Magnetic resonance imaging (MRI) of the cervical spine without and with contrast Magnetic resonance imaging (MRI) of the thoracic spine without and with contrast Magnetic resonance imaging (MRI) of the lumbar spine without and with contrast HISTORY: Sensory changes TECHNIQUE: Multiplanar multi-weighted MRI of the entire spine was performed without and with intravenous contrast using the standard total spine protocol. Contrast information: 20 mL Dotarem COMPARISON: None available. FINDINGS: CERVICAL SPINE: There is mild retrolisthesis of C4 and 5, C5 on 6. 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 Vertebral bodies demonstrate normal signal intensity on all sequences. No acute fracture is identified; however, if trauma is suspected, a CT scan would be a more sensitive examination for fractures. The craniocervical junction is normal. The visualized portions of the skull base and the posterior fossa are normal. The spinal cord demonstrates normal signal intensity on all sequences. There is multilevel degenerative disc disease of the cervical spine, most prominent at C4-C5, C5-C6.. There are no annular fissures identified. No soft tissue abnormality is identified. Normal signal voids are present in the vertebral arteries. There are no areas of abnormal contrast enhancement. C2-C3: The disk is normal in configuration. There is no facet arthropathy. There is no uncovertebral joint disease. There is no neuroforaminal stenosis. There is no spinal canal stenosis. C3-C4: The disk is normal in configuration. There is no facet arthropathy. There is no uncovertebral joint disease. There is no neuroforaminal stenosis. There is no spinal canal stenosis. C4-C5: Small paracentral disc protrusion. There is no facet arthropathy. There is no uncovertebral joint disease. There is no neuroforaminal stenosis. There is mild spinal canal stenosis. C5-C6: Minimal disc bulge. There is no facet arthropathy. There is mild bilateral uncovertebral joint disease. There is mild bilateral neuroforaminal stenosis. There is no spinal canal stenosis. C6-C7: The disk is normal in configuration. There is no facet arthropathy. There is no uncovertebral joint disease. There is no neuroforaminal stenosis. There is no spinal canal stenosis. C7-T1: The disk is normal in configuration. There is no facet arthropathy. There is no uncovertebral joint disease. There is no neuroforaminal stenosis. There is no spinal canal stenosis. THORACIC SPINE: The alignment of the thoracic spine is normal. Vertebral bodies demonstrate normal signal intensity on all sequences. There are no compression fractures. The spinal cord demonstrates normal signal intensity on all sequences. Mild multilevel disc desiccation and bulge, most prominent at T10-T11, T11-T12. Limited views of the chest and abdomen show no soft tissue abnormality. The aorta is normal. There are no areas of abnormal contrast enhancement. On the lateral aspect of the thecal sac at the level of T6-T7, there is a T2 hyperintense extradural mass, centered in the region of the lateral recess, which may represent a heike- neural cyst. 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 This lesions causes mild scalloping of the adjacent vertebral body and neuroforamen. This lesion demonstrates mild mass effect of the thecal sac in conjunction with disc bulge causing leftward displacement of the thecal sac, resulting in mild left neuroforaminal and spinal canal stenosis at T11-T12. There is no evidence of cord signal abnormality within the lower thoracic cord. LUMBAR SPINE: The alignment of the lumbar spine is normal. Vertebral bodies demonstrate normal signal intensity on all sequences. There are no compression fractures. The conus medullaris terminates at the level of L1-L2. The distal spinal cord signal intensity is normal. Intervertebral disks have normal height and signal intensity. There are no annular fissures identified. Limited views of the abdomen and pelvis show no soft tissue abnormality. The aorta is normal. There are no areas of abnormal contrast enhancement. L1-L2: The disc is normal in configuration. There is no facet arthropathy. There is no neuroforaminal stenosis. There is no spinal canal stenosis. L2-L3: The disc is normal in configuration. There is no facet arthropathy. There is no neuroforaminal stenosis. There is no spinal canal stenosis. L3-L4: The disc is normal in configuration. There is no facet arthropathy. There is no neuroforaminal stenosis. There is no spinal canal stenosis. L4-L5: The disc is normal in configuration. There is no facet arthropathy. There is no neuroforaminal stenosis. There is no spinal canal stenosis. L5-S1: The disc is normal in configuration. There is no facet arthropathy. There is no neuroforaminal stenosis. There is no spinal canal stenosis. IMPRESSION: ?? 1. 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 2. No abnormal cord signal abnormality in the entire spine. 3. Minimal degenerative changes of the lower cervical spine, most prominent at C4-C5, C5-C6, leading to mild spinal canal stenosis at C4-C5 an mild bilateral or foraminal stenosis at C5-C6. 4. No significant foraminal or spinal canal stenosis in the lumbar spine. Requested By: GUICHO DIAS M.D. Dictated By: ?? SARA CARRASCO M.D. ??on May?2015 11:04A This document has been electronically signed by: HAMMAD MATOS M.D. on May ??2015 ??1:00P [id number] Procedure Note Provider, MD Margarita - 12/17/2016 HAMMAD MATOS M.D. SARA CARRASCO M.D. FINAL REPORT The radiology attending physician has personally reviewed this study, and has reviewed and/or edited this written report and agrees with it. ACC# Date Time Exam [id number] May 15, 2016 09:45:00 [id number] MRI Cervical Spn wo&wi con [id number] May 15, 2016 09:45:00 [id number] MRI ThoracicSpn wo&wi cont [id number] May 15, 2016 09:45:00 [id number] MRI Lumbar Spn wo&wi cont EXAMINATION: Magnetic resonance imaging (MRI) of the cervical spine without and with contrast Magnetic resonance imaging (MRI) of the thoracic spine without and with contrast Magnetic resonance imaging (MRI) of the lumbar spine without and with contrast HISTORY: Sensory changes TECHNIQUE: Multiplanar multi-weighted MRI of the entire spine was performed without and with intravenous contrast using the standard total spine protocol. Contrast information: 20 mL Dotarem COMPARISON: None available. FINDINGS: CERVICAL SPINE: There is mild retrolisthesis of C4 and 5, C5 on 6. 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 Vertebral bodies demonstrate normal signal intensity on all sequences. No acute fracture is identified; however, if trauma is suspected, a CT scan would be a more sensitive examination for fractures. The craniocervical junction is normal. The visualized portions of the skull base and the posterior fossa are normal. The spinal cord demonstrates normal signal intensity on all sequences. There is multilevel degenerative disc disease of the cervical spine, most prominent at C4-C5, C5-C6.. There are no annular fissures identified. No soft tissue abnormality is identified. Normal signal voids are present in the vertebral arteries. There are no areas of abnormal contrast enhancement. C2-C3: The disk is normal in configuration. There is no facet arthropathy. There is no uncovertebral joint disease. There is no neuroforaminal stenosis. There is no spinal canal stenosis. C3-C4: The disk is normal in configuration. There is no facet arthropathy. There is no uncovertebral joint disease. There is no neuroforaminal stenosis. There is no spinal canal stenosis. C4-C5: Small paracentral disc protrusion. There is no facet arthropathy. There is no uncovertebral joint disease. There is no neuroforaminal stenosis. There is mild spinal canal stenosis. C5-C6: Minimal disc bulge. There is no facet arthropathy. There is mild bilateral uncovertebral joint disease. There is mild bilateral neuroforaminal stenosis. There is no spinal canal stenosis. C6-C7: The disk is normal in configuration. There is no facet arthropathy. There is no uncovertebral joint disease. There is no neuroforaminal stenosis. There is no spinal canal stenosis. C7-T1: The disk is normal in configuration. There is no facet arthropathy. There is no uncovertebral joint disease. There is no neuroforaminal stenosis. There is no spinal canal stenosis. THORACIC SPINE: The alignment of the thoracic spine is normal. Vertebral bodies demonstrate normal signal intensity on all sequences. There are no compression fractures. The spinal cord demonstrates normal signal intensity on all sequences. Mild multilevel disc desiccation and bulge, most prominent at T10-T11, T11-T12. Limited views of the chest and abdomen show no soft tissue abnormality. The aorta is normal. There are no areas of abnormal contrast enhancement. On the lateral aspect of the thecal sac at the level of T6-T7, there is a T2 hyperintense extradural mass, centered in the region of the lateral recess, which may represent a heike- neural cyst. 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 This lesions causes mild scalloping of the adjacent vertebral body and neuroforamen. This lesion demonstrates mild mass effect of the thecal sac in conjunction with disc bulge causing leftward displacement of the thecal sac, resulting in mild left neuroforaminal and spinal canal stenosis at T11-T12. There is no evidence of cord signal abnormality within the lower thoracic cord. LUMBAR SPINE: The alignment of the lumbar spine is normal. Vertebral bodies demonstrate normal signal intensity on all sequences. There are no compression fractures. The conus medullaris terminates at the level of L1-L2. The distal spinal cord signal intensity is normal. Intervertebral disks have normal height and signal intensity. There are no annular fissures identified. Limited views of the abdomen and pelvis show no soft tissue abnormality. The aorta is normal. There are no areas of abnormal contrast enhancement. L1-L2: The disc is normal in configuration. There is no facet arthropathy. There is no neuroforaminal stenosis. There is no spinal canal stenosis. L2-L3: The disc is normal in configuration. There is no facet arthropathy. There is no neuroforaminal stenosis. There is no spinal canal stenosis. L3-L4: The disc is normal in configuration. There is no facet arthropathy. There is no neuroforaminal stenosis. There is no spinal canal stenosis. L4-L5: The disc is normal in configuration. There is no facet arthropathy. There is no neuroforaminal stenosis. There is no spinal canal stenosis. L5-S1: The disc is normal in configuration. There is no facet arthropathy. There is no neuroforaminal stenosis. There is no spinal canal stenosis. IMPRESSION: 1. 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 2. No abnormal cord signal abnormality in the entire spine. 3. Minimal degenerative changes of the lower cervical spine, most prominent at C4-C5, C5-C6, leading to mild spinal canal stenosis at C4-C5 an mild bilateral or foraminal stenosis at C5-C6. 4. No significant foraminal or spinal canal stenosis in the lumbarspine. Requested By: GUICHO DIAS M.D. Dictated By: SARA CARRASCO M.D. on May 15 2016 11:04A This document has been electronically signed by: HAMMAD MATOS M.D. on May 15 2016 1:00P [id number] us Historical Provider MD [facility] MRI PROCEDURES Final Result * MRI Lumbar Spine W WO Contrast (05/15/2016 9:45 AM CDT) Anatomical Region Laterality Modality Spine N/A Magnetic Resonan ce 05/15/2016 9:45 AM CDT Narrative 05/15/2016 1:00 PM CDT Jillian VERMA M.D. FINAL REPORT The radiology attending physician has personally reviewed this study, and has reviewed and/or edited this written report and agrees with it. ACC# ??Date Time ??Exam [id number] May 15, 2016 09:45:00 [id number] MRI Cervical Spn wo&wi con [id number] May 15, 2016 09:45:00 [id number] MRI ThoracicSpn wo&wi cont [id number] May 15, 2016 09:45:00 [id number] MRI Lumbar Spn wo&wi cont EXAMINATION: ?? Magnetic resonance imaging (MRI) of the cervical spine without and with contrast Magnetic resonance imaging (MRI) of the thoracic spine without and with contrast Magnetic resonance imaging (MRI) of the lumbar spine without and with contrast HISTORY: Sensory changes TECHNIQUE: Multiplanar multi-weighted MRI of the entire spine was performed without and with intravenous contrast using the standard total spine protocol. Contrast information: 20 mL Dotarem COMPARISON: None available. FINDINGS: CERVICAL SPINE: There is mild retrolisthesis of C4 and 5, C5 on 6. 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 Vertebral bodies demonstrate normal signal intensity on all sequences. No acute fracture is identified; however, if trauma is suspected, a CT scan would be a more sensitive examination for fractures. The craniocervical junction is normal. The visualized portions of the skull base and the posterior fossa are normal. The spinal cord demonstrates normal signal intensity on all sequences. There is multilevel degenerative disc disease of the cervical spine, most prominent at C4-C5, C5-C6.. There are no annular fissures identified. No soft tissue abnormality is identified. Normal signal voids are present in the vertebral arteries. There are no areas of abnormal contrast enhancement. C2-C3: The disk is normal in configuration. There is no facet arthropathy. There is no uncovertebral joint disease. There is no neuroforaminal stenosis. There is no spinal canal stenosis. C3-C4: The disk is normal in configuration. There is no facet arthropathy. There is no uncovertebral joint disease. There is no neuroforaminal stenosis. There is no spinal canal stenosis. C4-C5: Small paracentral disc protrusion. There is no facet arthropathy. There is no uncovertebral joint disease. There is no neuroforaminal stenosis. There is mild spinal canal stenosis. C5-C6: Minimal disc bulge. There is no facet arthropathy. There is mild bilateral uncovertebral joint disease. There is mild bilateral neuroforaminal stenosis. There is no spinal canal stenosis. C6-C7: The disk is normal in configuration. There is no facet arthropathy. There is no uncovertebral joint disease. There is no neuroforaminal stenosis. There is no spinal canal stenosis. C7-T1: The disk is normal in configuration. There is no facet arthropathy. There is no uncovertebral joint disease. There is no neuroforaminal stenosis. There is no spinal canal stenosis. THORACIC SPINE: The alignment of the thoracic spine is normal. Vertebral bodies demonstrate normal signal intensity on all sequences. There are no compression fractures. The spinal cord demonstrates normal signal intensity on all sequences. Mild multilevel disc desiccation and bulge, most prominent at T10-T11, T11-T12. Limited views of the chest and abdomen show no soft tissue abnormality. The aorta is normal. There are no areas of abnormal contrast enhancement. On the lateral aspect of the thecal sac at the level of T6-T7, there is a T2 hyperintense extradural mass, centered in the region of the lateral recess, which may represent a heike- neural cyst. 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 This lesions causes mild scalloping of the adjacent vertebral body and neuroforamen. This lesion demonstrates mild mass effect of the thecal sac in conjunction with disc bulge causing leftward displacement of the thecal sac, resulting in mild left neuroforaminal and spinal canal stenosis at T11-T12. There is no evidence of cord signal abnormality within the lower thoracic cord. LUMBAR SPINE: The alignment of the lumbar spine is normal. Vertebral bodies demonstrate normal signal intensity on all sequences. There are no compression fractures. The conus medullaris terminates at the level of L1-L2. The distal spinal cord signal intensity is normal. Intervertebral disks have normal height and signal intensity. There are no annular fissures identified. Limited views of the abdomen and pelvis show no soft tissue abnormality. The aorta is normal. There are no areas of abnormal contrast enhancement. L1-L2: The disc is normal in configuration. There is no facet arthropathy. There is no neuroforaminal stenosis. There is no spinal canal stenosis. L2-L3: The disc is normal in configuration. There is no facet arthropathy. There is no neuroforaminal stenosis. There is no spinal canal stenosis. L3-L4: The disc is normal in configuration. There is no facet arthropathy. There is no neuroforaminal stenosis. There is no spinal canal stenosis. L4-L5: The disc is normal in configuration. There is no facet arthropathy. There is no neuroforaminal stenosis. There is no spinal canal stenosis. L5-S1: The disc is normal in configuration. There is no facet arthropathy. There is no neuroforaminal stenosis. There is no spinal canal stenosis. IMPRESSION: ?? 1. 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 2. No abnormal cord signal abnormality in the entire spine. 3. Minimal degenerative changes of the lower cervical spine, most prominent at C4-C5, C5-C6, leading to mild spinal canal stenosis at C4-C5 an mild bilateral or foraminal stenosis at C5-C6. 4. No significant foraminal or spinal canal stenosis in the lumbar spine. Requested By: GUICHO DIAS M.D. Dictated By: ?? SARA CARRASCO M.D. ??on May ??2015 11:04A This document has been electronically signed by: HAMMAD MATOS M.D. on May?2015 ??1:00P [id number] Procedure Note Provider, MD Margarita - 12/17/2016 HAMMAD MATOS M.D. SARA CARRASCO M.D. FINAL REPORT The radiology attending physician has personally reviewed this study, and has reviewed and/or edited this written report and agrees with it. ACC# Date Time Exam [id number] May 15, 2016 09:45:00 [id number] MRI Cervical Spn wo&wi con [id number] May 15, 2016 09:45:00 [id number] MRI ThoracicSpn wo&wi cont [id number] May 15, 2016 09:45:00 [id number] MRI Lumbar Spn wo&wi cont EXAMINATION: Magnetic resonance imaging (MRI) of the cervical spine without and with contrast Magnetic resonance imaging (MRI) of the thoracic spine without and with contrast Magnetic resonance imaging (MRI) of the lumbar spine without and with contrast HISTORY: Sensory changes TECHNIQUE: Multiplanar multi-weighted MRI of the entire spine was performed without and with intravenous contrast using the standard total spine protocol. Contrast information: 20 mL Dotarem COMPARISON: None available. FINDINGS: CERVICAL SPINE: There is mild retrolisthesis of C4 and 5, C5 on 6. 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 Vertebral bodies demonstrate normal signal intensity on all sequences. No acute fracture is identified; however, if trauma is suspected, a CT scan would be a more sensitive examination for fractures. The craniocervical junction is normal. The visualized portions of the skull base and the posterior fossa are normal. The spinal cord demonstrates normal signal intensity on all sequences. There is multilevel degenerative disc disease of the cervical spine, most prominent at C4-C5, C5-C6.. There are no annular fissures identified. No soft tissue abnormality is identified. Normal signal voids are present in the vertebral arteries. There are no areas of abnormal contrast enhancement. C2-C3: The disk is normal in configuration. There is no facet arthropathy. There is no uncovertebral joint disease. There is no neuroforaminal stenosis. There is no spinal canal stenosis. C3-C4: The disk is normal in configuration. There is no facet arthropathy. There is no uncovertebral joint disease. There is no neuroforaminal stenosis. There is no spinal canal stenosis. C4-C5: Small paracentral disc protrusion. There is no facet arthropathy. There is no uncovertebral joint disease. There is no neuroforaminal stenosis. There is mild spinal canal stenosis. C5-C6: Minimal disc bulge. There is no facet arthropathy. There is mild bilateral uncovertebral joint disease. There is mild bilateral neuroforaminal stenosis. There is no spinal canal stenosis. C6-C7: The disk is normal in configuration. There is no facet arthropathy. There is no uncovertebral joint disease. There is no neuroforaminal stenosis. There is no spinal canal stenosis. C7-T1: The disk is normal in configuration. There is no facet arthropathy. There is no uncovertebral joint disease. There is no neuroforaminal stenosis. There is no spinal canal stenosis. THORACIC SPINE: The alignment of the thoracic spine is normal. Vertebral bodies demonstrate normal signal intensity on all sequences. There are no compression fractures. The spinal cord demonstrates normal signal intensity on all sequences. Mild multilevel disc desiccation and bulge, most prominent at T10-T11, T11-T12. Limited views of the chest and abdomen show no soft tissue abnormality. The aorta is normal. There are no areas of abnormal contrast enhancement. On the lateral aspect of the thecal sac at the level of T6-T7, there is a T2 hyperintense extradural mass, centered in the region of the lateral recess, which may represent a heike- neural cyst. 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 This lesions causes mild scalloping of the adjacent vertebral body and neuroforamen. This lesion demonstrates mild mass effect of the thecal sac in conjunction with disc bulge causing leftward displacement of the thecal sac, resulting in mild left neuroforaminal and spinal canal stenosis at T11-T12. There is no evidence of cord signal abnormality within the lower thoracic cord. LUMBAR SPINE: The alignment of the lumbar spine is normal. Vertebral bodies demonstrate normal signal intensity on all sequences. There are no compression fractures. The conus medullaris terminates at the level of L1-L2. The distal spinal cord signal intensity is normal. Intervertebral disks have normal height and signal intensity. There are no annular fissures identified. Limited views of the abdomen and pelvis show no soft tissue abnormality. The aorta is normal. There are no areas of abnormal contrast enhancement. L1-L2: The disc is normal in configuration. There is no facet arthropathy. There is no neuroforaminal stenosis. There is no spinal canal stenosis. L2-L3: The disc is normal in configuration. There is no facet arthropathy. There is no neuroforaminal stenosis. There is no spinal canal stenosis. L3-L4: The disc is normal in configuration. There is no facet arthropathy. There is no neuroforaminal stenosis. There is no spinal canal stenosis. L4-L5: The disc is normal in configuration. There is no facet arthropathy. There is no neuroforaminal stenosis. There is no spinal canal stenosis. L5-S1: The disc is normal in configuration. There is no facet arthropathy. There is no neuroforaminal stenosis. There is no spinal canal stenosis. IMPRESSION: 1. 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 2. No abnormal cord signal abnormality in the entire spine. 3. Minimal degenerative changes of the lower cervical spine, most prominent at C4-C5, C5-C6, leading to mild spinal canal stenosis at C4-C5 an mild bilateral or foraminal stenosis at C5-C6. 4. No significant foraminal or spinal canal stenosis in the lumbarspine. Requested By: GUICHO DIAS M.D. Dictated By: SARA CARRASCO M.D. on May 15 2016 11:04A This document has been electronically signed by: HAMMAD MATOS M.D. on May 15 2016 1:00P [id number] us Historical Provider MD [facility] MRI PROCEDURES Final Result * CT Head WO Contrast (05/15/2016 5:49 AM CDT) Anatomical Region Laterality Modality Head and Neck N/A Computed Tomogra phy 05/15/2016 5:49 AM CDT Narrative 05/15/2016 2:13 PM CDT CONCETTA LEUNG M.D. MARYBEL LANGLEY M.D. FINAL REPORT The radiology attending physician has personally reviewed this study, and has reviewed and/or edited this written report and agrees with it. ACC# ??Date Time ??Exam [id number] May 15, 2016 05:49:[id number] Head or Brain w/o cont [id number] May 15, 2016 05:49:[address] Cervical Spine w/o cont ACC# ??Date Time ??Exam [id number] May 15, 2016 05:49:[address] Head or Brain w/o cont [id number] May 15, 2016 05:49:[id number] Cervical Spine w/o cont EXAMINATION: Noncontrast head CT CT of the cervical spine without contrast HISTORY: Pop in neck, now pain shooting down legs. TECHNIQUE: Noncontrast CT of the brain was performed with images acquired from skull base to vertex. Computed tomography of the cervical spine was performed without contrast according to standard protocol. COMPARISON: None available. FINDINGS: Topogram demonstrates no [...] sinuses are normal. No fractures are identified. Mild focal kyphosis at C4-C5. There is no acute fracture. There is developmental lack of segmentation at C6-C7. Mild multilevel degenerative disc disease is seen with mild mid cervical uncovertebral joint osteoarthritis. Disc bulge is seen at C4-C5. ??There is no severe spinal canal stenosis. The craniocervical junction is normal. The facets are normal. No soft tissue abnormality is identified. ?? IMPRESSION: Normal noncontrast head CT. No evidence of acute fracture in the cervical spine with multilevel degenerative disc disease. If further evaluation for disc herniation is desired, recommend MRI. ?? Requested By: GUICHO DIAS M.D. Dictated By: ?? MARYBEL LANGLEY M.D. ??on May ??2015 ??8:59A This document has been electronically signed by: CONCETTA LEUNG M.D. on May ?? 2015 ??2:13P [id number] Procedure Note Provider, MD Margarita - 12/17/2016 CONCETTA LEUNG M.D. MARYBEL LANGLEY M.D. FINAL REPORT The radiology attending physician has personally reviewed this study, and has reviewed and/or edited this written report and agrees with it. ACC# Date Time Exam [id number] May 15, 2016 05:49:[id number] Head or Brain w/o cont [id number] May 15, 2016 05:49:[address] Cervical Spine w/o cont ACC# Date Time Exam [id number] May 15, 2016 05:49:[address] Head or Brain w/o cont [id number] May 15, 2016 05:49:[address] Cervical Spine w/o cont EXAMINATION: Noncontrast head CT CT of the cervical spine without contrast HISTORY: Pop in neck, now pain shooting down legs. TECHNIQUE: Noncontrast CT of the brain was performed with images acquired from skull base to vertex. Computed tomography of the cervical spine was performed without contrast according to standard protocol. COMPARISON: None available. FINDINGS: Topogram demonstrates no [...] sinuses are normal. No fractures are identified. Mild focal kyphosis at C4-C5. There is no acute fracture. There is developmental lack of segmentation at C6-C7. Mild multilevel degenerative disc disease is seen with mild mid cervical uncovertebral joint osteoarthritis. Disc bulge is seen at C4-C5. There is no severe spinal canal stenosis. The craniocervical junction is normal. The facets are normal. No soft tissue abnormality is identified. IMPRESSION: Normal noncontrast head CT. No evidence of acute fracture in the cervical spine with multilevel degenerative disc disease. If further evaluation for disc herniation is desired, recommend MRI. Requested By: GUICHO DIAS M.D. Dictated By: MARYBEL LANGLEY M.D. on May 15 2016 8:59A This document has been electronically signed by: CONCETTA LEUNG M.D. on May 15 2016 2:13P [id number] us Historical Provider [facility] CT PROCEDURES Final R esult * CT Cervical Spine WO Contrast (05/15/2016 5:49 AM CDT) Anatomical Region Laterality Modality Spine N/A Computed Tomogra phy 05/15/2016 5:49 AM CDT Narrative 05/15/2016 2:13 PM CDT Jillian CARROLL M.D. FINAL REPORT The radiology attending physician has personally reviewed this study, and has reviewed and/or edited this written report and agrees with it. ACC# ??Date Time ??Exam [id number] May 15, 2016 05:49:[address] Head or Brain w/o cont [id number] May 15, 2016 05:49:[address] Cervical Spine w/o cont ACC# ??Date Time ??Exam [id number] May 15, 2016 05:49:[address] Head or Brain w/o cont [id number] May 15, 2016 05:49:[address] Cervical Spine w/o cont EXAMINATION: Noncontrast head CT CT of the cervical spine without contrast HISTORY: Pop in neck, now pain shooting down legs. TECHNIQUE: Noncontrast CT of the brain was performed with images acquired from skull base to vertex. Computed tomography of the cervical spine was performed without contrast according to standard protocol. COMPARISON: None available. FINDINGS: Topogram demonstrates no [...] sinuses are normal. No fractures are identified. Mild focal kyphosis at C4-C5. There is no acute fracture. There is developmental lack of segmentation at C6-C7. Mild multilevel degenerative disc disease is seen with mild mid cervical uncovertebral joint osteoarthritis. Disc bulge is seen at C4-C5. ??There is no severe spinal canal stenosis. The craniocervical junction is normal. The facets are normal. No soft tissue abnormality is identified. ?? IMPRESSION: Normal noncontrast head CT. No evidence of acute fracture in the cervical spine with multilevel degenerative disc disease. If further evaluation for disc herniation is desired, recommend MRI. ?? Requested By: GUICOH DIAS M.D. Dictated By: ?? MARYBEL LANGLEY M.D. ??on May ??2015 ??8:59A This document has been electronically signed by: CONCETTA LEUNG M.D. on May ?? 2015 ??2:13P [id number] Procedure Note Provider, MD Margarita - 12/17/2016 Jillian CARROLL M.D. FINAL REPORT The radiology attending physician has personally reviewed this study, and has reviewed and/or edited this written report and agrees with it. ACC# Date Time Exam [id number] May 15, 2016 05:49:[id number] Head or Brain w/o cont [id number] May 15, 2016 05:49:[id number] Cervical Spine w/o cont ACC# Date Time Exam [id number] May 15, 2016 05:49:[address] Head or Brain w/o cont [id number] May 15, 2016 05:49:[id number] Cervical Spine w/o cont EXAMINATION: Noncontrast head CT CT of the cervical spine without contrast HISTORY: Pop in neck, now pain shooting down legs. TECHNIQUE: Noncontrast CT of the brain was performed with images acquired from skull base to vertex. Computed tomography of the cervical spine was performed without contrast according to standard protocol. COMPARISON: None available. FINDINGS: Topogram demonstrates no [...] sinuses are normal. No fractures are identified. Mild focal kyphosis at C4-C5. There is no acute fracture. There is developmental lack of segmentation at C6-C7. Mild multilevel degenerative disc disease is seen with mild mid cervical uncovertebral joint osteoarthritis. Disc bulge is seen at C4-C5. There is no severe spinal canal stenosis. The craniocervical junction is normal. The facets are normal. No soft tissue abnormality is identified. IMPRESSION: Normal noncontrast head CT. No evidence of acute fracture in the cervical spine with multilevel degenerative disc disease. If further evaluation for disc herniation is desired, recommend MRI. Requested By: GUICHO DIAS M.D. Dictated By: MARYBEL LANGLEY M.D. on May 15 2016 8:59A This document has been electronically signed by: CONCETTA LEUNG M.D. on May 15 2016 2:13P [id number] us Historical Provider MD [facility] CT PROCEDURES Final R esult * XR Spine Cervical 2 or 3 Views (05/14/2016 10:21 PM CDT) Anatomical Region Laterality Modality Spine N/A Radiographic Sweta ging 05/14/2016 10:2 1 PM CDT Narrative 05/15/2016 11:05 AM CDT MANUEL HENDRICKS M.D. KARIN VILLALOBOS M.D. FINAL REPORT The radiology attending physician has personally reviewed this study, and has reviewed and/or edited this written report and agrees with it. ACC# ??Date Time ??Exam [id number] May 14, 2016 22:18:00 [id number] Spine Lumbar 2 or 3 views [id number] May 14, 2016 22:18:00 37403 Spine Thoracic 3 views [id number] May 14, 2016 22:21:00 18494 Spine Cerv 3views or less EXAMINATION: ?? 1. Cervical spine 3 views or less 2. Thoracic spine 3 views 3. Lumbar spine 2 or 3 views HISTORY: ??[place] pop in neck, now pain shooting down legs. IMPRESSION: ?? Three views of the cervical spine are submitted for interpretation without comparison. There is straightening of the cervical lordosis. Fusion of C6-C7 is seen. No acute fracture is identified. Multilevel facet arthropathy is seen. Three views of the thoracic spine are submitted for interpretation without comparison. Minimal levocurvature of the thoracic spine is seen. The vertebral body heights are normal. Minimal degenerative disc changes are seen throughout the thoracic spine. Three views of the lumbar spine are submitted for interpretation without comparison. Alignment is normal. Vertebral body heights are normal. Degenerative disc changes are seen at T12-L1. A phlebolith is incidentally noted in the pelvis. Requested By: JESSICA DOBSON M.D. Dictated By: ?? KARIN VILLALOBOS M.D. ??on May?2015 ??7:46A This document has been electronically signed by: MANUEL HENDRICKS M.D. on May?2015 11:03A [id number] Procedure Note Provider, MD Margarita - 12/17/2016 MANUEL HENDRICKS M.D. KARIN VILLALOBOS M.D. FINAL REPORT The radiology attending physician has personally reviewed this study, and has reviewed and/or edited this written report and agrees with it. ACC# Date Time Exam [id number] May 14, 2016 22:18:00 [id number] Spine Lumbar 2 or 3 views [id number] May 14, 2016 22:18:00 [id number] Spine Thoracic 3 views [id number] May 14, 2016 22:21:00 70767 Spine Cerv 3views or less EXAMINATION: 1. Cervical spine 3 views or less 2. Thoracic spine 3 views 3. Lumbar spine 2 or 3 views HISTORY: [place] pop in neck, now pain shooting down legs. IMPRESSION: Three views of the cervical spine are submitted for interpretation without comparison. There is straightening of the cervical lordosis. Fusion of C6-C7 is seen. No acute fracture is identified. Multilevel facet arthropathy is seen. Three views of the thoracic spine are submitted for interpretation without comparison. Minimal levocurvature of the thoracic spine is seen. The vertebral body heights are normal. Minimal degenerative disc changes are seen throughout the thoracic spine. Three views of the lumbar spine are submitted for interpretation without comparison. Alignment is normal. Vertebral body heights are normal. Degenerative disc changes are seen at T12-L1. A phlebolith is incidentally noted in the pelvis. Requested By: JESSICA DOBSON M.D. Dictated By: KARIN VILLALOBOS M.D. on May 15 2016 7:46A This document has been electronically signed by: MANUEL HENDRICKS M.D. on May 15 2016 11:03A [id number] us Historical Provider IMG XR PROCEDURES Final R esult * XR Spine Lumbar 2 or 3 Views (05/14/2016 10:18 PM CDT) Anatomical Region Laterality Modality Spine N/A Radiographic Sweta ging 05/14/2016 10:1 8 PM CDT Narrative 05/15/2016 11:05 AM CDT MANUEL HENDRICKS M.D. KARIN VILLALOBOS M.D. FINAL REPORT The radiology attending physician has personally reviewed this study, and has reviewed and/or edited this written report and agrees with it. ACC# ??Date Time ??Exam [id number] May 14, 2016 22:18:00 73596 Spine Lumbar 2 or 3 views [id number] May 14, 2016 22:18:00 17738 Spine Thoracic 3 views [id number] May 14, 2016 22:21:00 26570 Spine Cerv 3views or less EXAMINATION: ?? 1. Cervical spine 3 views or less 2. Thoracic spine 3 views 3. Lumbar spine 2 or 3 views HISTORY: ??[place] pop in neck, now pain shooting down legs. IMPRESSION: ?? Three views of the cervical spine are submitted for interpretation without comparison. There is straightening of the cervical lordosis. Fusion of C6-C7 is seen. No acute fracture is identified. Multilevel facet arthropathy is seen. Three views of the thoracic spine are submitted for interpretation without comparison. Minimal levocurvature of the thoracic spine is seen. The vertebral body heights are normal. Minimal degenerative disc changes are seen throughout the thoracic spine. Three views of the lumbar spine are submitted for interpretation without comparison. Alignment is normal. Vertebral body heights are normal. Degenerative disc changes are seen at T12-L1. A phlebolith is incidentally noted in the pelvis. Requested By: JESSICA DOBSON M.D. Dictated By: ?? KARIN VILLALOBOS M.D. ??on May?2015 ??7:46A This document has been electronically signed by: MANUEL HENDRICKS M.D. on May ??2015 11:03A [id number] Procedure Note Provider, MD Margarita - 12/17/2016 Jillian MATA M.D. FINAL REPORT The radiology attending physician has personally reviewed this study, and has reviewed and/or edited this written report and agrees with it. ACC# Date Time Exam [id number] May 14, 2016 22:18:00 15615 Spine Lumbar 2 or 3 views [id number] May 14, 2016 22:18:00 78949 Spine Thoracic 3 views [id number] May 14, 2016 22:21:00 37062 Spine Cerv 3views or less EXAMINATION: 1. Cervical spine 3 views or less 2. Thoracic spine 3 views 3. Lumbar spine 2 or 3 views HISTORY: [place] pop in neck, now pain shooting down legs. IMPRESSION: Three views of the cervical spine are submitted for interpretation without comparison. There is straightening of the cervical lordosis. Fusion of C6-C7 is seen. No acute fracture is identified. Multilevel facet arthropathy is seen. Three views of the thoracic spine are submitted for interpretation without comparison. Minimal levocurvature of the thoracic spine is seen. The vertebral body heights are normal. Minimal degenerative disc changes are seen throughout the thoracic spine. Three views of the lumbar spine are submitted for interpretation without comparison. Alignment is normal. Vertebral body heights are normal. Degenerative disc changes are seen at T12-L1. A phlebolith is incidentally noted in the pelvis. Requested By: JESSICA DOBSON M.D. Dictated By: KARIN VILLALOBOS M.D. on May 15 2016 7:46A This document has been electronically signed by: MANUEL HENDRICKS M.D. on May 15 2016 11:03A [id number] us Historical Provider MD [facility] XR PROCEDURES Final R esult * XR Spine Thoracic 3 Vw (05/14/2016 10:18 PM CDT) Anatomical Region Laterality Modality Spine N/A Radiographic Sweta ging 05/14/2016 10:1 8 PM CDT Narrative 05/15/2016 11:05 AM CDT Jillian MATA M.D. FINAL REPORT The radiology attending physician has personally reviewed this study, and has reviewed and/or edited this written report and agrees with it. ACC# ??Date Time ??Exam [id number] May 14, 2016 22:18:00 18543 Spine Lumbar 2 or 3 views [id number] May 14, 2016 22:18:00 82332 Spine Thoracic 3 views [id number] May 14, 2016 22:21:00 25977 Spine Cerv 3views or less EXAMINATION: ?? 1. Cervical spine 3 views or less 2. Thoracic spine 3 views 3. Lumbar spine 2 or 3 views HISTORY: ??[place] pop in neck, now pain shooting down legs. IMPRESSION: ?? Three views of the cervical spine are submitted for interpretation without comparison. There is straightening of the cervical lordosis. Fusion of C6-C7 is seen. No acute fracture is identified. Multilevel facet arthropathy is seen. Three views of the thoracic spine are submitted for interpretation without comparison. Minimal levocurvature of the thoracic spine is seen. The vertebral body heights are normal. Minimal degenerative disc changes are seen throughout the thoracic spine. Three views of the lumbar spine are submitted for interpretation without comparison. Alignment is normal. Vertebral body heights are normal. Degenerative disc changes are seen at T12-L1. A phlebolith is incidentally noted in the pelvis. Requested By: JESSICA DOBSON M.D. Dictated By: ?? KARIN VILLALOBOS M.D. ??on May?2015 ??7:46A This document has been electronically signed by: MANUEL HENDRICKS M.D. on May?2015 11:03A [id number] Procedure Note Provider, Margarita, - 12/17/2016 MANUEL HENDRICKS M.D. KARIN VILLALOBOS M.D. FINAL REPORT The radiology attending physician has personally reviewed this study, and has reviewed and/or edited this written report and agrees with it. ACC# Date Time Exam [id number] May 14, 2016 22:18:00 [id number] Spine Lumbar 2 or 3 views [id number] May 14, 2016 22:18:00 24791 Spine Thoracic 3 views [id number] May 14, 2016 22:21:00 [id number] Spine Cerv 3views or less EXAMINATION: 1. Cervical spine 3 views or less 2. Thoracic spine 3 views 3. Lumbar spine 2 or 3 views HISTORY: [place] pop in neck, now pain shooting down legs. IMPRESSION: Three views of the cervical spine are submitted for interpretation without comparison. There is straightening of the cervical lordosis. Fusion of C6-C7 is seen. No acute fracture is identified. Multilevel facet arthropathy is seen. Three views of the thoracic spine are submitted for interpretation without comparison. Minimal levocurvature of the thoracic spine is seen. The vertebral body heights are normal. Minimal degenerative disc changes are seen throughout the thoracic spine. Three views of the lumbar spine are submitted for interpretation without comparison. Alignment is normal. Vertebral body heights are normal. Degenerative disc changes are seen at T12-L1. A phlebolith is incidentally noted in the pelvis. Requested By: JESSICA DOBSON M.D. Dictated By: KARIN VILLALOBOS M.D. on May 15 2016 7:46A This document has been electronically signed by: MANUEL HENDRICKS M.D. on May 15 2016 11:03A [id number] us Historical Provider IMG XR PROCEDURES Final R esult documented in this encounter Visit Diagnoses Diagnosis Other dorsalgia Other disturbances of skin sensation Other disorders of meninges, not elsewhere classified Disease of spinal cord (HCC) Unspecified disease of spinal cord Cigarette nicotine dependence, uncomplicated Acquired absence of both cervix and uterus documented in this encounter
--- OUTSIDE RECORDS SUMMARY | 2024-08-17 01:55 | XMS_ITS | Encounter Summary ---
Author Organization [facility] Healthcare Address [address] [place] [address] Care Team Providers Care Chopping Machine Operator Name Role Phone Damian Sadler MD Primary Care Provider + [phone] Encounter Details Date Type Department Care Team (Late st Contact Info) Description 01/21/2017 5:54 PM CDT - 01/22/2017 11:[address] [facility] Emergency Department [address] [place] [address] Sabas Ny MD [address] [facility] [address] [place] [address] Discharge Disposition: Discharge to home or self care Social History Tobacco Use Types Packs/Day Years Used Date Smoking Tobacco: Never Assessed Comments Unknown Sex and Gender Information Value Date Recorded Sex Assigned at Not on file Legal Sex Female 9:06 PM [employer] Gender Identity Female 10/01/2023 8:44 AM [employer] Sexual Orientation Straight 10/01/2023 8: 44 AM [employer] documented as of this encounter Discharge Disposition Disposition Code Departure Means Destination Discharge to home or self care documented in this encounter Plan of Treatment Not on file documented as of this encounter Procedures Procedure Name Priority Date/Time Associated Diagnosis Comments DIFFERENTIAL AUTO STAT 01/21/2017 8:0 6 PM CDT CBC WITH AUTO DIFFERENTIAL STAT 01/21/2017 8:06 PM CDT LIPASE STAT 01/21/2017 8:06 PM CDT HEPATIC FUNCTION PANEL STAT 01/21/2017 8:06 PM CDT BASIC METABOLIC PANEL STAT 01/21/2017 8:06 PM CDT HCG, QUAL, URINE, POC STAT 01/21/2017 7:52 PM CDT URINALYSIS AND REFLEX TO MICROSCOPIC STAT 01/21/2017 7:45 PM CDT DISCHARGE LABORATORY CUMULATIVE REPORT 01/21/2017 documented in this encounter Results * Hepatic function panel (01/21/2017 8:06 PM CDT) AST 29 10 - 45 Units/L [facility] ALT 31 7 - 45 Units/L [facility] Alk phos 86 40 - 130 Units/L [facility] Bilirubin, total 0.3 0.1 - 1.2 mg/dL [facility] Bilirubin, direct <0.2 0.1 - 0.3 mg/dL [facility] Protein, pl 8.0 6.5 - 8.5 g/dL [facility] Albumin 4.5 3.5 - 5.0 g/dL [facility] Blood specimen (specimen) 01/21/2017 8:06 PM CDT 01/21/2017 8:08 PM CDT Casey Benton MD LAB BLOOD ORDERABLES Final Res ult Performing Organization Address [facility]/State/ZIP Co de Phone Number [facility] Department [place] [address] * Lipase (01/21/2017 8:06 PM CDT) Lipase 52 10 - 99 Units/L [facility] Blood specimen (specimen) 01/21/2017 8:06 PM CDT 01/21/2017 8:08 PM CDT Casey Benton MD LAB BLOOD ORDERABLES Final Res ult Performing Organization Address City/[facility] Co de Phone Number [facility] Department [place] [address] * Basic metabolic panel (01/21/2017 8:06 PM CDT) [facility] Sodium 141 135 - 145 mmol/L [facility] Potassium, pl 4.0 3.3 - 4.9 mmol/L [facility] Chloride 108 97 - 110 mmol/L [facility] CO2 22 22 - 32 mmol/L [facility] BUN 13 8 - 25 mg/dL [facility] Glucose 92 70 - 199 mg/dL [facility] Creatinine 0.69 0.60 - 1.10 mg/dL [facility] Calcium 9.6 8.5 - 10.3 mg/dL [facility] Anion gap 11 2 - 15 mmol/L [facility] Blood specimen (specimen) 01/21/2017 8:06 PM CDT 01/21/2017 8:08 PM CDT us Casey Benton MD LAB BLOOD ORDERABLES Final Res ult Performing Organization Address [facility] Co de Phone Number [facility] Department [place] [address] * (ABNORMAL) Differential, auto (01/21/2017 8:06 PM CDT) [facility] Neutrophil pct 57.9 % [facility] Imm gran pct 0.3 % [facility] Lymphocyte pct 30.4 % [facility] Monocyte pct 9.8 % [facility] Eosinophil pct 1.2 % [facility] Basophil pct 0.4 % [facility] Neutrophil abs 5.32 1.70 - 6.50 K/cumm [facility] Imm gran abs 0.03 0.00 - 0.10 K/cumm [facility] Lymphocyte abs 2.80 0.80 - 3.30 K/cumm [facility] Monocyte abs 0.90(H) 0.20 - 0.80 K/cumm [facility] Eosinophil abs 0.11 0.00 - 0.50 K/cumm [facility] Basophil abs 0.04 0.00 - 0.10 K/cumm [facility] Blood specimen (specimen) 01/21/2017 8:06 PM CDT 01/21/2017 8:08 PM CDT us Casey Benton MD LAB BLOOD ORDERABLES Final Res ult Performing Organization Address [facility] de Phone Number [facility] Department [place] [employer] [place] [address] * CBC with auto differential (01/21/2017 8:06 PM CDT) Pathologist [facility] WBC 9.20 3.80 - 9.90 K/cumm [facility] RBC 4.89 3.90 - 5.20 M/cumm [facility] Hgb 14.1 11.9 - 15.5 g/dL [facility] Hct 41.4 35.6 - 45.5 % [facility] MCV 84.7 81.3 - 96.4 fL [facility] MCH 28.8 27.1 - 33.3 pg [facility] MCHC 34.1 32.3 - 35.7 g/dL [facility] RDW CV 12.5 11.1 - 14.9 % [facility] RDW SD 38.1 35.7 - 48.1 fL [facility] Plt 260 150 - 400 K/cumm [facility] MPV 9.8 9.1 - 12.3 fL [facility] NRBC 0.0 0.0 - 0.2 % [facility] NRBC abs 0.00 0.00 - 0.01 K/cumm [facility] Blood specimen (specimen) 01/21/2017 8:06 PM CDT 01/21/2017 8:08 PM CDT us Casey Benton MD LAB BLOOD ORDERABLES Final Res ult Performing Organization Address [facility]/ZIP Co de Phone Number [facility] [place] [employer] [place] [address] * hCG, Qual, Urine, POC (01/21/2017 7:52 PM CDT) HCG, ur, POC Negative [facility] Urine 01/21/2017 7:52 PM CDT 01/22/2017 10:08 AM CDT us Casey Benton MD LAB BLOOD ORDERABLES Final Res ult [facility] Department [place] [address] * Urinalysis reflex to microscopic (01/21/2017 7:45 PM CDT) Color, ur Yellow Yellow [facility] Clarity, ur Clear Clear [facility] Specific gravity, ur 1.026 1.003 - 1.030 [facility] pH, ur 5.0 5.0 - 8.0 [facility] Albumin, ur Negative Trace [facility] Glucose, ur ql Negative Negative [facility] Ketones, ur Negative Negative [facility] Bilirubin, ur Negative Negative [facility] Blood, ur Negative Negative [facility] Urobilinogen, ur <2.0 <2.0 mg/dL [facility] Nitrites, ur Negative Negative [facility] Leukocyte esterase, ur Negative Negative [facility] Urine 01/21/2017 7:45 PM CDT 01/21/2017 8:03 PM CDT us Casey Benton MD LAB URINE ORDERABLES Final Res ult Performing Organization Address City/[facility]/ZIP Co de Phone Number [facility] [place] [address] * DISCHARGE LABORATORY CUMULATIVE REPORT (01/21/2017) us Provider Scanning LAB BLOOD ORDERABLES Final Res ult documented in this encounter Visit Diagnoses Not on filedocumented in this encounter Care Teams Chopping Machine Operator Relationship Specialty Start Date End Date Damian Sadler MD PCP - General 11/29/16 05/18/22 documented as of this encounter
--- OUTSIDE RECORDS SUMMARY | 2024-08-17 01:55 | XMS_ITS | Encounter Summary ---
Author Organization [facility] Address [address] [place] [address] Phone Care Team Providers Care Engraver Pantograph Name Role Phone Damian Sadler MD Primary Care Provider [phone] Reason for Referral * Consultation (Routine) - Closed Specialty Diagnoses / Procedures Referred By Lluvia webb Referred To Contact Physical Therapy Diagnoses Urge incontinence Chronic bladder pain Emma Anderson NP Phone: tel: fax: [facility] (All Locations) Referral ID Status Reason Start Date Expiration Date V isits Requested Visits Authorized [id number] Closed Specialty Services Required 10/08/2019 04/18/2021 10 10 Question Answer PTRFR PT Evaluate and Treat Therapy options discussed with patient? Yes Location provided for therapy services is: Patient requested/Patient preferred Please select the performing region: [facility] (All Locations) [[id number]] # of visits: 10 TRIC INSTALLER Reason for Visit * Reason Comments Gynecologic Exam Right Breast Pain Encounter Details Date Type Department Care Team (Late st Contact Info) Description 10/08/2019 11:00 AM ELECTRIC INSTALLER Office Visit [facility] Obstetrics and Gynecology [address] [place] [address] Emma Anderson NP [address] [address] Encntr for crayon sawyer exam (general) (routine) w abnormal findings (Primary Dx); Screening for breast cancer; Breast pain, right; Urge incontinence; Tobacco abuse; Elevated blood pressure reading; Chronic bladder pain Social History Tobacco Use Types Packs/Day Years Used Date Smoking Tobacco: Every Day Cigarettes Smokeless Tobacco: Never Alcohol Use Standard Drinks/Week Comments No 0 (1 standard drink = 0.6 oz pur e alcohol) Comments No Sex and Gender Information Value Date Recorded Sex Assigned at Not on file Legal Sex Female 9:06 PM ELECTRIC INSTALLER Gender Identity Female 10/01/2023 8:44 AM ELECTRIC INSTALLER Sexual Orientation Straight 10/01/2023 8: 44 AM ELECTRIC INSTALLER documented as of this encounter Last Filed Vital Signs Vital Sign Reading Time Taken Comments Blood Pressure 157/113 10/08/2019 10:59 AM ELECTRIC INSTALLER Pulse 67 10/08/2019 10:59 AM ELECTRIC INSTALLER Temperature - - Respiratory Rate - - Oxygen Saturation - - Inhaled Oxygen Concentration - - Weight 79.4 kg (175 lb) 10/08/2019 10:59 AM ELECTRIC INSTALLER Height 160 cm (5' 3 ) 10/08/2019 10:59 AM ELECTRIC INSTALLER Body Mass Index 31 10/08/2019 10:59 AM ELECTRIC INSTALLER documented in this encounter Patient Instructions * Patient Instructions* Emma Anderson, CARLO - 10/08/2019 11:00 AM ELECTRIC INSTALLER Patient Education How to Stop Smoking VICE PRESIDENT AND PORTFOLIO MANAGER: You will improve your health and the health of others around you if you stop smoking. Your risk forheart and lung disease, cancer, stroke, heart attack, and vision problems will also decrease. You can benefit from quitting no matter how long you have smoked. Prepare to stop smoking: Nicotine is a highly addictive drug found in cigarettes. Withdrawal symptoms can happen when you stop smoking and make it hard to quit. These include anxiety, depression, irritability, trouble sleeping, and increased appetite. You increase your chances of success if you prepare to quit. ?? Set a quit date. Pick a date that is within the next 2 weeks. Do not pick a day that you think may be stressful or busy. Write down the day or [place] it on your calender. ?? Tell friends and family that you plan to quit. Explain that you may have withdrawal symptoms when you try to quit. Ask them to support you. They may be able to encourage you and help reduce your stress to make it easier for you to quit. ?? Make a list of your reasons for quitting. Put the list somewhere you will see it every day, suchas your refrigerator. You can look at the list when you have a craving. ?? Remove all tobacco and nicotine products from your home, car, and workplace. Also, remove anything else that will tempt you to smoke, such as lighters, matches, or ashtrays. Clean your car, home, and places at work that smell like smoke. The smell of smoke can trigger a craving. ?? Identify triggers that make you want to smoke. This may include activities, feelings, or people.Also write down 1 way you can deal with each of your triggers. For example, if you want to smoke assoon as you wake up, plan another activity during this time, such as exercise. ?? Make a plan for how you will quit. Learn about the tools that can help you quit, such as medicine, counseling, or nicotine replacement therapy. Choose at least 2 options to help you quit. Tools to help you stop smoking: ?? Counseling from a trained healthcare provider can provide you with support and skills to quit smoking. The provider will also teach you to manage your withdrawal symptoms and cravings. You may receive counseling from one counselor, in group therapy, or through phone therapy called a quit line. ?? Nicotine replacement therapy (NRT) such as nicotine patches, gum, or lozenges may help reduce your nicotine cravings. You may get these without a doctor's order. Do not use e-cigarettes or smokeless tobacco in place of cigarettes or to help you quit. They still contain nicotine. ?? Prescription medicines such as nasal sprays or nicotine inhalers may help reduce your withdrawalsymptoms. Other medicines may also be used to reduce your urge to smoke. Ask your healthcare provider about these medicines. You may need to start certain medicines 2 weeks before your quit date for them to work well. ?? Hypnosis is a practice that helps guide you through thoughts and feelings. Hypnosis may help decrease your cravings and make you more willing to quit. ?? Acupuncture therapy uses very thin needles to balance energy channels in the body. This is thought to help decrease cravings and symptoms of nicotine withdrawal. ?? Support groups let you talk to others who are trying to quit or have already quit. It may be helpful to speak with others about how they quit. Manage your cravings: ?? Avoid situations, people, and places that tempt you to smoke. Go to nonsmoking places, such as libraries or restaurants. Understand what tempts you and try to avoid these things. ?? Keep your hands busy. Hold things such as a stress ball or pen. ?? Put candy or toothpicks in your mouth. Keep lollipops, sugarless gum, or toothpicks with you at all times. ?? Do not have alcohol or caffeine. These drinks may tempt you to smoke. Drink healthy liquids suchas water or juice instead. ?? Reward yourself when you resist your cravings. Rewards will motivate you and help you stay positive. ?? Do an activity that distracts you from your craving. Examples include going for a walk, exercising, or cleaning. Prevent weight gain after you quit: You may gain a few pounds after you quit smoking. It is healthier for you to gain a few pounds than to continue to smoke. The following can help you prevent weightgain: ?? Eat healthy foods. These include fruits, vegetables, whole-grain breads, low- fat dairy products,beans, lean meats, and fish. Eat healthy snacks, such as low- fat yogurt, if you get hungry between meals. ?? Drink water before, during, and between meals. This will make your stomach feel full and help prevent you from overeating. Ask your healthcare provider how much liquid to drink each day and which liquids are best for you. ?? Exercise. Take a walk or do some kind of exercise every day. Ask your healthcare provider what exercise is right for you. This may help reduce your cravings and reduce stress. For more support and information: ?? Smokefree.gov Phone: Web Address: www.[employer].gov ?? 2017 [employer] Information is for End User's use only and may not be sold, redistributed or otherwise used for commercial purposes. All illustrations and images included in CareNotes?? are the copyrighted property of [employer] or [employer]. The above information is an educational assistant only. It is not intended as medical advice for individual conditions or treatments. Talk to your doctor, nurse or pharmacist before following any medical regimen to see if it is safe and effective for you. TRIC INSTALLER documented in this encounter Progress Notes * Emma Anderson NP - 10/08/2019 11:00 AM CST Images from the original note were not included. Well Woman Exam Patient ID: Renee Luke is a 39 y.o. female Subjective: Chief Complaint: Gynecologic Exam and Right Breast Pain HPI: Renee Luke is a 39 y.o. female who presents for a well woman exam. Former Dr. Pedersen pt. Last in office 2015. She complains of right breast and axilla pain since mid 06/2019. First noticed soreness when 9yo daughter gently leaned on patient. Worst has been 7:10 on pain scale. Currently 4:10. Denies any trauma, nipple d/c, breast skin change. Wearing a bra is painful. States It feels like something is stabbing me all of the way to my shoulder blade. Went to [facility] for eval. Given cyclobenzaprine which pt states did help but pt cannot take atc and work. S/p uterine ablation in 2009; 12/23/2015 EUA, Lap RSO for complex ov cyst, 01/24/2016 EUA; [facility] STI Screen: declines Bones: no routine exercise, consumes 2 servings of calcium in daily diet. 1/2pk/d smoker x 20 yrs; interested in quitting Family history of reproductive cancers: No HPV vaccine series completed: No Mamm: never Last saw PCP 12/2016, at [facility] extended b/p med Rx. Pt due to see PCP. Reports taking otc ibuprofen 800mg bid because my body hurts all over. No formal eval. Pt thinks ibuprofen use has contributed to need for omeprazole. 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 B/p 112/. Rare SUNNI, more UI when I have to go, I have to go If I have the least bit of urine in my bladder, sex is a no go. Too painful. Review of systems and past medical, surgical, social and family history reviewed as documented. Review of Systems Constitutional: Fatigue Eyes: Denies Eye Problems Cardiovascular: Denies Cardiovascular Problems Respiratory: Denies Respiratory Problems Gastrointestinal: Nausea, Vomiting, Diarrhea, Heartburn/GERD Genitourinary: (pelvic pain and painful intercourse) Sexual Dysfunction: No Musculoskeletal: Muscle Weakness, Joint Pain Skin/Breast/Axillae: Denies Skin/Axillae problems Breast: Breast Pain, Lumps Neurological: Headaches, Dizziness Psychosocial: Denies Psychiatric Problems Endocrine: Hot Flashes Hematologic/Lymphatic: Denies Hematologic/Lymphatic Problems Allergic/Immunologic: Denies Allergies All other Review of Systems are Negative: All other Review of Systems are negative Have you been to the emergency room, urgent care, or hospital for any reason since the last visit: No Histories: Medical Past Medical History: Diagnosis Date ??? Hypertension ??? Migraine Surgical Past Surgical History: Procedure Laterality Date ??? SECTION ??? HYSTERECTOMY ??? KIDNEY SURGERY Ob History OB History Para Term AB Living 3 3 3 3 SAB TAB Ectopic Multiple Live Births 3 # Outcome Date GA Lbr Jeffery/2nd Weight Sex Delivery Anes PTL Lv 3 Term 2009 F CS-Unspec PATRICIA 2 Term 2001 M CS-Unspec PATRICIA 1 Term 2000 F CS-Unspec PATRICIA Complications: Gestational hypertension Extension Service Supervisor History No LMP recorded. Patient has had a hysterectomy. Social History Substance and Sexual Activity Sexual Activity Yes ??? Partners: Male ??? control/protection: Hysterectomy Pap History: Previous PAP Tests Date of Last Pap if Known: 01/11/2016 Negative History of Abnormal Paps: No Menstrual history: Menstrual History Menarche Age: 8 years Period Pattern: None Reason: Hysterectomy Family Family History Problem Relation Age of Onset ??? Diabetes Neg Hx Social Social History Socioeconomic History ??? Marital status: Spouse name: None ??? Number of children: None ??? Years of education: None ??? Highest education level: None Occupational History ??? None Social Needs ??? Financial resource strain: None ??? Food insecurity Worry: None Inability: None ??? Transportation needs Medical: None Non-medical: None Tobacco Use ??? Smoking status: Current Every Day Smoker Packs/day: 0.50 ??? Smokeless tobacco: Never Used Substance and Sexual Activity ??? Alcohol use: No ??? Drug use: No ??? Sexual activity: Yes Partners: Male control/protection: Hysterectomy Lifestyle ??? Physical activity Days per week: None Minutes per session: None ??? Stress: None Relationships ??? Social connections Talks on phone: None Gets together: None Attends tenriism service: None Active member of club or organization: None Attends meetings of clubs or organizations: None Relationship status: None ??? Intimate partner violence Fear of current or ex partner: None Emotionally abused: None Physically abused: None Forced sexual activity: None Other Topics Concern ??? None Social History Narrative ??? None Medications: Current Outpatient Medications: ??? cyclobenzaprine (FLEXERIL) 10 mg tablet, Take 1 tablet (10 mg total) by mouth 2 (two) times a day as needed for muscle spasms., Disp: 20 tablet, Rfl: 0 ??? lisinopril (PRINIVIL,ZESTRIL) 20 mg tablet, Take 20 mg by mouth daily., Disp: , Rfl: ??? MULTIVIT-MINERALS/FERROUS FUM (MULTI VITAMIN ORAL), Take by mouth., Disp: , Rfl: ??? omeprazole (PriLOSEC) 20 mg capsule, Take 20 mg by mouth 2 (two) times a day., Disp: , Rfl: Allergies: Ketorolac and Tramadol Health Care Maintenance: Health Maintenance Topics with due status: Overdue Topic Date Due Depression Screening-PHQ 1979 Cervical Cancer Screening-Pap and HPV 1979 Regular Well Visit/Exam 1979 Breast Cancer Screening-Mammogram 1979 DTaP/Tdap/Td Vaccine 1990 Influenza Vaccine 04/12/2019 Pap smear: 2016 NILM Mammography: Never Colonoscopy: 2016, normal, done for eval of abd pain Objective: BP (!) 157/113 Pulse 67 Ht 160 cm (5' 3 ) Wt 175 lb (79.4 kg) BMI 31.00 kg/m?? Physical Exam Constitutional: Appearance: She is well-developed. HENT: Head: Normocephalic and atraumatic. Eyes: Pupils: Pupils are equal, round, and reactive to light. Neck: Musculoskeletal: Normal range of motion. Thyroid: No thyromegaly. Cardiovascular: Comments: Normal peripheral vascular exam Pulmonary: Effort: Pulmonary effort is normal. Chest: Breasts: Right: Tenderness present. No inverted nipple, mass, nipple discharge or skin change. Left: Normal. No inverted nipple, mass, nipple discharge or skin change. Comments: [place]: area of pain Abdominal: General: There is no distension. Palpations: Abdomen is soft. Tenderness: There is no abdominal tenderness. There is no guarding. Genitourinary: Pelvic exam was performed with patient supine. Rectum normal and vagina normal. Right labia: normal. There is no rash, tenderness or lesion on the left labia. Left Labia: normal. There is no rash, tenderness or lesion on the left labia. Left adnexa: normal. Cervix is absent. Cervix: Surgically Absent. Uterus is Surgically absent. Genitourinary Comments: Without myofascial tenderness Right inguinal canal: normal. Left inguinal canal: normal. Musculoskeletal: Normal range of motion. Lymphadenopathy: Upper Body: Right upper body: No supraclavicular or axillary adenopathy. Left upper body: No supraclavicular or axillary adenopathy. Skin: General: Skin is warm and dry. Neurological: Mental Status: She is alert and oriented to person, place, and time. Psychiatric: Speech: Speech normal. Behavior: Behavior normal. Thought Content: Thought content normal. Judgment: Judgment normal. Assessment/Plan: Renee Luke is a 39 y.o. female who presents for a well woman exam. Diagnoses and all orders for this visit: Encntr for crayon sawyer exam (general) (routine) w abnormal findings Screening for breast cancer - SCREENING MAMMOGRAM LEFT W JORGE LUIS UNILATERAL ONLY; Future Breast pain, right - Diagnostic Mammogram Right W Jorge Luis; Future - US if needed - Low suspicion of malignancy, more likely etiology is chest wall musculoskeletal pain. Urge incontinence - Ambulatory referral order to Physical Therapy - Tobacco abuse/Elevated blood pressure reading - Encouraged cessation, printed material given. Referred back to PCP for b/p mgmt and possible medsfor smoking cessation. - Pt denies Bhandari, CP, SOB, visual changes. States she needs to take b/p meds today. Chronic bladder pain - Ambulatory referral order to Physical Therapy - Recommended screenings and preventive care discussed: Pap smear: Not Indicated Breast health reviewed: SBE discussed, Mammogram: Recommended Sexually transmitted disease screening: patient declined Bone health: Calcium and vitamin D intake discussed. Dexa Scan: Not indicated Colon Cancer: Colonoscopy: not indicated Diet and exercise discussed. Body mass index is 31 kg/m??.; Reviewed recommendation/goal of >/= 150 minutes/week moderate-intensity aerobic exercise. Preventative health labs per PCP Smoking Cessation Discussed. Handouts provided: Smoking cessation, [facility] PF PT RTO 1 year/prn Emma Anderson APRN, WHNP, NCMP Cosigned by Meghan Adams MD at 10/08/2019 7:29 PM ELECTRIC INSTALLER TRIC INSTALLER TRIC INSTALLER Associated attestation - Meghan Adams MD - 10/08/2019 7:29 PM ELECTRIC INSTALLER I have reviewed the patient's history and physical and agree with the assessment and plan per Tello. documented in this encounter Plan of Treatment Scheduled Referrals Name Type Priority Associated Diagnoses Order Schedule Ambulatory referral order to Physical Therapy - Outpatient Referral Routine Urge incontinence Chronic bladder pain Ordered: 10/08/2019 documented as of this encounter Visit Diagnoses Diagnosis Encntr for crayon sawyer exam (general) (routine) w abnormal findings- Primary Breast pain, right Urge incontinence Tobacco abuse Tobacco use disorder Elevated blood pressure reading Elevated blood pressure reading without diagnosis of hypertension Chronic bladder pain documented in this encounter Discontinued Medications Medication Sig Discontinue Reason Start Date End Da te acetaminophen-codeine (TYLENOL with CODEINE #3) 300-30 mg per tablet Take 1-2 tablets by mouth every 6 (six) hours as needed for pain Patient Discharge 07/20/2019 10/08/2019 acetaminophen-codeine (TYLENOL with CODEINE #3) 300-30 mg per tablet Take 1 tablet by mouth every 6 (six) hours as needed for pain Take with food as directed for pain. Patient Discharge 11/11/2018 10/08/2019 acetaminophen (TYLENOL) 500 mg tablet Take 1-2 tablets (500-1,000 mg total) by mouth every 6 (six) hours as needed for pain (1 tablet for mild to moderate pain. 2 tablets for severe pain) Patient Discharge 06/05/2019 10/08/2019 chlorhexidine (PERIDEX) 0.12 % solution Swish 15 mL in mouth for 30 seconds then spit out twice a day after brushing teeth, Patient Discharge 06/05/2019 10/08/2019 ondansetron ODT (ZOFRAN-ODT) 4 mg disintegrating tablet Dissolve 1 tablet oral every 4 hours as needed for nausea or vomiting. Patient Discharge 05/20/2018 10/08/2019 tiZANidine (ZANAFLEX) 4 mg tablet Take 1 tablet (4 mg total) by mouth every 6 (six) hours as needed (To relax muscles) Patient Discharge 11/11/2018 10/08/2019 documented as of this encounter Care Teams Engraver Pantograph Relationship Specialty Start Date End Date Damian Sadler MD PCP - General 11/29/16 05/18/22 documented as of this encounter
--- OUTSIDE RECORDS SUMMARY | 2024-08-17 01:55 | XMS_ITS | Encounter Summary ---
Author Organization [facility] Address [address] [place] [address] Care Team Providers Care Account Development Specialist Name Role Phone Damian Sadler MD Primary Care Provider [phone] Encounter Details Date Type Department Care Team (Late st Contact Info) Description 05/29/2018 Telephone [facility] Emergency Department [address] [place], [place] [id number] Brianna Nvoak RN Social History Tobacco Use Types Packs/Day Years Used Date Smoking Tobacco: Every Day Cigarettes Smokeless Tobacco: Never Alcohol Use Standard Drinks/Week Comments No 0 (1 standard drink = 0.6 oz pur e alcohol) Comments No Sex and Gender Information Value Date Recorded Sex Assigned at Not on file Legal Sex Female 9:06 PM 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 Made aware of culture results and call Rxinto [facility] in [place] per pt request. Brianna Novak RN 05/29/18 190 documented in this encounter Plan of Treatment Not on file documented as of this encounter Visit Diagnoses Not on filedocumented in this encounter Care Teams Account Development Specialist Relationship Specialty Start Date End Date Damian Sadler MD PCP - General 11/29/16 05/18/22 documented as of this encounter
--- OUTSIDE RECORDS SUMMARY | 2024-08-17 01:55 | XMS_ITS | Encounter Summary ---
Author Organization [facility] Healthcare Address [address] [place] [address] Care Team Providers Care Historical Records Administrator Name Role Phone Damian Sadler MD Primary Care Provider Reason for Visit * Reason Comments Dental Pain Encounter Details Date Type Department Care Team (Late st Contact Info) Description 06/05/2019 4:34 PM CDT - 06/05/2019 6:20 PM CDT Emergency [facility] Emergency Department [address] [place] [phone] Dental abscess (Primary Dx) Discharge Disposition: Discharge [...] file Legal Sex Female 9:06 PM SUPERVISOR TESTING Gender Identity Female 10/01/2023 8:44 AM SUPERVISOR TESTING Sexual Orientation Straight 10/01/2023 8: 44 AM SUPERVISOR TESTING documented as of this encounter Last Filed Vital Signs Vital Sign Reading Time Taken Comments Blood Pressure 161/112 06/05/2019 6:20 PM CDT Pulse 67 06/05/2019 6:20 PM CDT Temperature 36.4 ??C (97.5 ??F) 06/05/2019 3:29 PM CD T Respiratory Rate 18 06/05/2019 6:20 PM CDT Oxygen Saturation 99% 06/05/2019 6:20 PM CDT Inhaled Oxygen Concentration - - Weight 77.1 kg (170 lb) 06/05/2019 3:29 PM CDT Height 160 cm (5' 3 ) 06/05/2019 3:29 PM CDT Body Mass Index 30.11 06/05/2019 3:29 PM CDT documented in this encounter Discharge Diagnoses Diagnosis Periapical abscess without sinus - PERIAPICAL ABSCESS WITHOUT SINUS Essential (primary) hypertension - ESSENTIAL (PRIMARY) HYPERTENSION Unspecified essential hypertension Nicotine dependence, cigarettes, uncomplicated - NICOTINE DEPENDENCE, CIGARETTES, UNCOMPLICATED documented in this encounter Discharge Instructions * Discharge Instructions* Evelyne Bowser NP - 06/05/2019 5:53 PM CDT Be sure to keep your dental appointment on for follow up. Be sure to complete the entire course of antibiotics. * Attachments The following attachments cannot be sent through Care Everywhere. * Dental Abscess (Property Administrator) (Georgian) documented in this encounter Medications at Time of Discharge MULTIVIT-MINERALS/FE RROUS FUM (MULTI VITAMIN ORAL)Indications:hea lth Take 1 tablet by mouth community health worker 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 omeprazole (PriLOSEC) 20 mg capsuleIndications:T reatment of Non-Bleeding Gastric Disorder Take 1 capsule (20 mg total) by mouth community health worker 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 clindamycin (CLEOCIN) 150 mg capsule Take 2 capsules (300 mg total) by mouth 4 (four) times a day for 10 days 80 capsule 06/05/2019 9 acetaminophen (TYLENOL) 500 mg tablet Take [...] directed for pain. 15 tablet 11/11/2018 0 chlorhexidine (PERIDEX) 0.12 % solution Swish [...] Refills Last Filled Start Date End Date acetaminophen (TYLENOL) 500 mg tablet Take 1-2 tablets (500-1,000 mg total) by mouth every 6 (six) hours as needed for pain (1 tablet for mild to moderate pain. 2 tablets for severe pain) 30 tablet 06/05/2019 0 clindamycin (CLEOCIN) 150 mg capsule Take 2 capsules (300 mg total) by mouth 4 (four) times a day for 10 days 80 capsule 06/05/2019 9 chlorhexidine (PERIDEX) 0.12 % solution Swish 15 mL in mouth for 30 seconds then spit out twice a day after brushing teeth, 473 mL 06/05/2019 0 documented in this encounter Discharge Disposition Disposition Code Departure Means Destination Discharge to home or self care documented in this encounter ED Notes * Evelyne Bowser, CARLO - 06/05/2019 5:22 PM CDT Images from the original note were not included. HPI Chief Complaint Patient presents with ??? Dental Pain Pt is a 39 y.o. WF here with the cc of left upper dental pain and swelling. Pt state she broke a upper molar approximately 1 month ago and has had 3 infections episodes since. Pt states she was seen at [facility] and had I&D which helped tremendously. Pt states she has had 3 rounds of antibiotics as soon as they are down it starts hurting again. Pt states she has an appointment with h dentist on June 23 but comes in today because I think it needs to be drained . Denies anyf/c/n/v/d. Denies any trismus. Denies any difficutly swallowing or eating. History provided by: Patient Patient History Patient Active Problem List Diagnosis [...] Systems Review of Systems Constitutional: Negative. HENT: Positive for dental problem. Negative for drooling and facial swelling. Eyes: Negative. Respiratory: Negative. Cardiovascular: Negative. Gastrointestinal: Negative. Skin: Negative. All other systems reviewed and are negative. Physical Exam ED Triage Vitals [06/05/19 1529] Temp Pulse Resp BP SpO2 36.4 ??C (97.5 ??F) 70 16 (!) 185/115 100 % Temp src Heart Rate Source Patient Position BP Location FiO2 (%) Oral -- -- -- -- Physical Exam Vitals signs and nursing note reviewed. Constitutional: General: She is not in acute distress. Appearance: Normal appearance. She is not ill-appearing, toxic-appearing or diaphoretic. HENT: Head: Normocephalic and atraumatic. Mouth/Throat: Neurological: Mental Status: She is alert. [facility] ED Course as of Jun 05 1753 Time: 06/05 1747 Comment: Discussed plan for discharge home with peridex, antibiotics, discussed keeping the scheduled appointment on 06/23. Pt agrees and stated understanding. By: Evelyne Bowser NP Dental abscess Evelyne Bowser NP 06/05/191752 Evelyne Bowser NP 06/05/191752 * Cass Smalls RN - 06/05/2019 3:32 PM CDT Pt presents to ED c/o dental pain. Pt reports broken upper left molar x1 month, was prescribed abx 3 times since symptom onset and completed treatments. Patient states the infection is coming back again, they wont pull the tooth until June 23. Airway intact, tolerating secretions. Denies fevers/chills/abd pain, confirms NV today-patient states I don't know if its from the pain or what. documented in this encounter Miscellaneous Notes * ED Procedure Note - Evelyne Bowser NP - 06/05/2019 5:43 PM CDTAssociated Order(s): Incision and Drainage Procedure Incision and Drainage Date/Time: 06/05/2019 5:43 PM Performed by: Evelyne Bowesr NP Authorized by: Elijah Hensley MD RN Notified of Procedure: yes Informed consent: Risks, benefits, alternatives discussed Patient's stated name/ matches armband: Yes Allergies confirmed: yes Consent form signed, dated, timed; matches correct patient, intended procedure and site: Yes (verbal consent) Imaging: N/a Lab/Diag test results: N/a Supplies, devices and special equipment are available: yes Site/side marked: yes Immediately prior to the procedure a time out was called: a verbal verification by the procedure participants confirmed correct patient identity, correct site/side marked and visible (if applicable);agreement on procedure to be done; and correct patient positioning Type: Abscess Location: Mouth Mouth location: gingival Anesthesia method: Topical application Topical anesthesia: benzicaine. Needle aspiration: no Incision types: Single straight Incision depth: Dermal Scalpel size: 18 G. Drainage: Purulent Drainage amount: Moderate Wound treatment: Wound left open Packing materials: None Patient tolerance of procedure: Tolerated well, no immediate complications All guidewires, needles, sponges or other items are accounted for: yes Any special post procedure monitoring, testing or other considerations: n/a All specimens identified, labeled and matched to patient identification: n/a Responsible democrat for transporting specimen(s) to lab determined: n/a Evelyne Bowser NP 06/05/19 1747 documented in this encounter Plan of Treatment Not on file documented as of this encounter Procedures Procedure Name Priority Date/Time Associated Diagnosis Comments MO INCISION & DRAINAGE ABSCESS SIMPLE/SINGLE Routine 06/05/2019 5:43 PM CDT documented in this encounter Results * MO INCISION & DRAINAGE ABSCESS SIMPLE/SINGLE (06/05/2019 5:43 PM CDT) Narrative Evelyne Bowser NP - 06/05/2019 5:43 PM CDT Evelyne Bowser NP ? 06/05/2019 ??5:47 PM Incision and Drainage Date/Time: 06/05/2019 5:43 PM Performed by: Evelyne Bowser NP Authorized by: Elijah Hensley MD RN Notified of Procedure: yes ?? Informed consent: ??Risks, benefits, alternatives discussed Patient's stated name/ matches armband: ??Yes Allergies confirmed: yes ?? Consent form signed, dated, timed; matches correct patient, intended procedure and site: ??Yes (verbal consent) Imaging: ??N/a Lab/Diag test results: ??N/a Supplies, devices and special equipment are available: yes ?? Site/side marked: yes ?? Immediately prior to the procedure a time out was called: a verbal verification by the procedure participants confirmed correct patient identity, correct site/side marked and visible (if applicable); agreement on procedure to be done; and correct patient positioning ?? Type: ??Abscess Location: ??Mouth Mouth location: gingival Anesthesia method: ??Topical application Topical anesthesia: benzicaine. Needle aspiration: no ?? Incision types: ??Single straight Incision depth: ??Dermal Scalpel size: 18 G. Drainage: ??Purulent Drainage amount: ??Moderate Wound treatment: ??Wound left open Packing materials: ??None Patient tolerance of procedure: ??Tolerated well, no immediate complications All guidewires, needles, sponges or other items are accounted for: yes ?? Any special post procedure monitoring, testing or other considerations: n/a ?? All specimens identified, labeled and matched to patient identification: n/a ?? Responsible democrat for transporting specimen(s) to lab determined: n/a ?? us Elijah Hensley MD IN CLINIC/BEDSIDE [facility] Final Result documented in this encounter Visit Diagnoses Diagnosis Dental abscess- Primary Periapical abscess without sinus documented in this encounter Care Teams Historical Records Administrator Relationship Specialty Start Date End Date Damian Sadler MD PCP - General 11/29/16 05/18/22 documented as of this encounter
--- OUTSIDE RECORDS SUMMARY | 2024-08-17 01:55 | XMS_ITS | Encounter Summary ---
Author Organization [facility] Healthcare Address [address] [place] [address] Care Team Providers Care [place] Hand Name Role Phone Damian Sadler MD Primary Care Provider [phone] Reason for Visit * Reason Comments Leg Pain Back Pain Encounter Details Date Type Department Care Team (Late st Contact Info) Description 11/27/2020 4:47 PM CDT - 11/27/2020 10:59 PM CDT Emergency [facility] Emergency Department [address] [place] [address] Left nephrolithiasis (Primary Dx); Left leg pain Discharge Disposition: Discharge to home or self care Social History Tobacco Use Types Packs/Day Years Used Date Smoking Tobacco: Every Day Cigarettes Smokeless Tobacco: Never Alcohol Use Standard Drinks/Week Comments No 0 (1 standard drink = 0.6 oz pur e alcohol) Comments No Sex and Gender Information Value Date Recorded Sex Assigned at Not on file 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 Gender Identity Female 10/01/2023 8:44 AM 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 Sexual Orientation Straight 10/01/2023 8: 44 AM 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 documented as of this encounter Last Filed Vital Signs Vital Sign Reading Time Taken Comments Blood Pressure 151/114 11/27/2020 3:43 PM CDT Pulse 92 11/27/2020 3:43 PM CDT Temperature 36.8 ??C (98.3 ??F) 11/27/2020 3:43 PM CD T Respiratory Rate 18 11/27/2020 3:43 PM CDT Oxygen Saturation 98% 11/27/2020 3:43 PM CDT Inhaled Oxygen Concentration - - Weight 77.1 kg (170 lb) 11/27/2020 2:01 PM CDT Height 160 cm (5' 3 ) 11/27/2020 2:01 PM CDT Body Mass Index 30.11 11/27/2020 2:01 PM CDT documented in this encounter Discharge Diagnoses Diagnosis Calculus of kidney with calculus of ureter - CALCULUS OF KIDNEY WITH CALCULUS OF URETER Pain in left leg - PAIN IN LEFT LEG Pain in left hip - PAIN IN LEFT HIP Essential (primary) hypertension - ESSENTIAL (PRIMARY) HYPERTENSION Unspecified essential hypertension Nicotine dependence, cigarettes, uncomplicated - NICOTINE DEPENDENCE, CIGARETTES, UNCOMPLICATED documented in this encounter Discharge Instructions * Discharge Instructions* Anaid Self PA - 11/27/2020 10:37 PM CDT Please stay hydrated with 2-4 liters of fluid a day. Return to the ER for fever 101.1 or greater or decrease urine output. * Attachments The following attachments cannot be sent through Care Everywhere. 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 omeprazole (PriLOSEC) 20 mg capsuleIndicatio ns:Treatment of Non-Bleeding Gastric Disorder Take 1 capsule (20 mg total) by mouth metallographer 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 sulfamethoxazole -trimethoprim (BACTRIM DS) 800-160 mg per tablet Take 2 tablets by mouth 2 (two) times a day for 7 days 28 tablet 11/27/2020 1 cyclobenzaprine (FLEXERIL) 10 mg tablet Take 1 tablet (10 mg total) by mouth every 8 (eight) hours as needed for muscle spasms 12 tablet 10/31/2020 2 HYDROcodone-acet aminophen (NORCO) 5-325 mg per tabletIndication s:Pain Take 1-2 tablets by mouth every 4 (four) hours as needed for pain 10 tablet 11/27/2020 2 lisinopril (PRINIVIL,ZESTRI L) 20 mg tablet Take 20 mg by mouth daily. 2 tamsulosin (FLOMAX) 0.4 mg extended release capsule Take 1 capsule (0.4 mg total) by mouth daily 30 capsule 11/27/2020 2 documented as of this encounter Ordered Prescriptions Prescription Sig Dispense Quantity Refills Last Filled Start Date End Date HYDROcodone-acetam inophen (NORCO) 5-325 mg per tabletIndications: Pain Take 1-2 tablets by mouth every 4 (four) hours as needed for pain 10 tablet 11/27/2020 2 sulfamethoxazole-t rimethoprim (BACTRIM DS) 800-160 mg per tablet Take 2 tablets by mouth 2 (two) times a day for 7 days 28 tablet 11/27/2020 1 tamsulosin (FLOMAX) 0.4 mg extended release capsule Take 1 capsule (0.4 mg total) by mouth daily 30 capsule 11/27/2020 2 documented in this encounter Discharge Disposition Disposition Code Departure Means Destination Discharge to home or self care documented in this encounter ED Notes * Anaid Self PA - 11/27/2020 5:47 PM CDT HPI Chief Complaint Patient presents with ??? Leg Pain ??? Back Pain HPI This is a 40-year-old female h/o dental abscess recently on penicillin prednisone, kidney stones followed by urologist currently at [facility] s/p urinary stents insertion and removal and lithotripsies, 3 Caesarean sections, hypertension who presents to the emergency room with low back and left leg pain. My leg has not hurt like this since my last then laid on my sciatic nerve. [place] and immediately had to sit back down. She denies falls or traumas. She reports she has not been doing any yard work, my does that. She denies falls or traumas. She denies bowel or bladder incontinence. Patient History: Patient Active Problem List Diagnosis [...] Constitutional: Negative for chills, fatigue and fever. Gastrointestinal: Negative for constipation, diarrhea, nausea and vomiting. Genitourinary: Positive for frequency and urgency. Negative for decreased urine volume, difficulty urinating, dyspareunia, dysuria, flank pain, hematuria and pelvic pain. Musculoskeletal: Left leg pain All other systems reviewed and are negative. Physical Exam ED Triage Vitals [11/27/20 1401] Temp Pulse Resp BP SpO2 36.9 ??C (98.4 ??F) 102 18 (!) 153/103 100 % Temp src Heart Rate Source Patient Position BP Location FiO2 (%) Oral -- -- -- -- Physical Exam Vitals and nursing note reviewed. Constitutional: Appearance: Normal appearance. She is not ill-appearing or toxic-appearing. HENT: Head: Normocephalic and atraumatic. Right Ear: External ear normal. Left Ear: External ear normal. Nose: Nose normal. Eyes: Extraocular Movements: Extraocular movements intact. Conjunctiva/sclera: Conjunctivae normal. Pupils: Pupils are equal, round, and reactive to light. Cardiovascular: Rate and Rhythm: Normal rate and regular rhythm. Heart sounds: No murmur. No friction rub. No gallop. Pulmonary: Effort: No respiratory distress. Breath sounds: No stridor. No wheezing or rales. Abdominal: General: Bowel sounds are normal. Palpations: Abdomen is soft. Tenderness: There is right CVA tenderness and left CVA tenderness. Musculoskeletal: General: No swelling or tenderness. Cervical back: Normal range of motion and neck supple. Right lower leg: No edema. Left lower leg: No edema. Comments: Pain with rotation of the left hip socket. No tenderness to palpation of the left bursa of the hip or IT Band. Skin: General: Skin is warm. Capillary Refill: Capillary refill takes less than 2 seconds. Neurological: Mental Status: She is alert and oriented to person, place, and time. Comments: Negative SLR bilateral MAEW 5/5 Negative Babinski bilateral Ambulates unassisted but does favor left leg. Sensation intact throughout her body to pinprick MDM Medical Decision Making Differential Diagnosis or Management Options: 40-year-old female who presents to the emergency roomwith low back pain and left leg pain that was nontraumatic in nature. On exam patient is well-appearing. Regular rate rhythm. Well warm perfused. Abdomen soft nontender.Clear to auscultation. Patient had tenderness CVA bilateral without midline or paraspinal muscle tenderness. Negative straight leg raise bilateral. Negative hip exam in right leg. Pain with rotation of left hip. No tenderness noted to left hip bursa or left iliotibial band. Given her exam findings I him suspicious for osteoarthritis of her left hip less likely fracture dislocation given the history. Leg pain does not follow a dermatomal pattern. She does carry a significant h/o bilateral kidney stones and she is actively being followed by urologist at an outside hospital at [place] she could actively have a urinary tract infection or pyelonephritis. Will get screening lab work CBC, BMP, UA and an x-ray of the left hip. Portions of the record may have been created with voice recognition software. Occasional wrong-word or '[id number]' substitutions may have occurred due to the inherent limitations of voice recognition software. Read the chart carefully and recognize, using context, where substitutions have occurred. ED Course as of Nov 28 2355 Time: 11/27 1824 Comment: Kayla Fernandez. By: Anaid Self PA Time: 11/27 2045 Comment: IMPRESSION: Normal left hip radiographs. By: Anaid Self PA Time: 11/27 2052 Comment: Pain has improved after the norco. By: Anaid Self PA Time: 11/27 2053 Comment: I reviewed her lab work in the x-ray of her hip with her. She is aware the next step is a CT of her abdomen and pelvis By: Anaid Self PA Time: 11/27 2220 Comment: IMPRESSION: 1. 2 mm stone within the left proximal ureter without evidence of hydronephrosis. Tiny hyperdensity within the region of the right ureter may represent a punctate stone. By: Anaid Self PA Time: 11/28 2231 Comment: Reviewed lab work with the patient, UA contaminated with epithelial cells but given the stone will treat her with an antibiotic prophylactically. Patient to contact her urologist tomorrow. Discussed her leg pain could be irritation of the nerve roots versus mechanical pain. This would not change my current workup at this point as she denies trauma soap x-ray would be of little use, I have a low suspicion of nontraumatic compression fracture given her age. I have asked her to contact her PCP to get a physical therapy prescription. Return precautions bowel or bladder incontinence or muscle weakness. Reviewed findings, plan of care and return precautions with pt. Shared decision making used. Pt verbalizes understanding of all and agrees with POC. By: Anaid Self PA Time: 11/27 2240 Comment: Due to the following reason, I printed a controlled substance for this patient: Technical issue with EPCS. By: Suman Lang MD PhD Final diagnoses: None Anaid Self PA 11/27/201908 Anaid Self PA 11/27/202231 Anaid Self PA 11/27/202233 Anaid Self PA 11/27/20 2356 * Yanni Suarez RN - 11/27/2020 4:47 PM CDT Bed: ED3-02 Expected date: Expected time: Means of arrival: Car Comments: Yanni Suarez RN 11/27/20 1647 * Laura Wiley RN - 11/27/2020 2:00 PM CDT Pt presents with left leg pain, also felt sharp pop over lower back, states she is also losing mobility to left leg that started this am, denies injury or fall documented in this encounter Plan of Treatment Not on file documented as of this encounter Procedures Procedure Name Priority Date/Time Associated Diagnosis Comments CT ABDOMEN PELVIS WO CONTRAST ED 11/27/2020 9:27 PM CDT XR HIP LEFT 2 OR 3 VIEWS ED 11/27/2020 8:11 PM CDT DIFFERENTIAL AUTO STAT 11/27/2020 6:5 0 PM CDT URINALYSIS AND REFLEX TO MICROSCOPIC AND CULTURE STAT 11/27/2020 6:50 PM CDT CBC WITH AUTO DIFFERENTIAL STAT 11/27/2020 6:50 PM CDT URINALYSIS, MICROSCOPIC ONLY STAT 11/27/2020 6:50 PM CDT BASIC METABOLIC PANEL STAT 11/27/2020 6:50 PM CDT POCT HCG, URINE Routine 11/27/2020 6:30 PM CDT documented in this encounter Results * CT Abdomen Pelvis WO Contrast (11/27/2020 9:27 PM CDT) Anatomical Region Laterality Modality Body N/A Computed Tomogra phy 11/27/2020 9:56 PM CDT Impressions 11/28/2020 9:58 AM CDT 1. 2 mm stone within the left proximal ureter without evidence of hydronephrosis. Tiny hyperdensity within the region of the right ureter may represent a punctate stone. Dictated by: Kain Tucker M.D. The radiology attending physician has personally reviewed this study, and had reviewed and/or edited this written report and agrees with it. Electronically signed by: Diallo Saab M.D. Narrative 11/28/2020 9:58 AM CDT EXAMINATION: CT abdomen and pelvis without intravenous contrast. HISTORY: 40-year-old woman with right lower rib pain. TECHNIQUE: Computed tomographic images of the abdomen and pelvis were obtained without the use of intravenous contrast according to standard protocol. COMPARISON: CT abdomen and pelvis dated 11/11/2018. FINDINGS: The lung bases are clear. The heart is normal in size without evidence of pericardial effusion. The liver is steatotic. ??The gallbladder is normal. An area of hypoattenuation within segment IVb of the liver may represent focal fatty infiltration of the liver. There is no biliary ductal dilation. The spleen, pancreas, adrenals, and kidneys are normal with the exception of a nonobstructing renal stone within the left renal collecting system. A 2 mm stone is present within the proximal left ureter. There may be a tiny punctate stone within the mid aspect of the right ureter (series 2 image 140) There is no hydronephrosis of either kidney. The bladder is normal. The uterus is surgically absent. No adnexal masses are seen. The large bowel is normal course and caliber without evidence of obstruction. The appendix is normal. The esophagus, stomach, and small bowel are normal. The abdominal aorta and its branches are normal course and caliber and contain scattered atherosclerotic calcifications. There is no free intra-abdominal air or free pelvic fluid. There is no suspicious retroperitoneal, mesenteric, or pelvic lymphadenopathy. There are no suspicious osseous lytic blastic lesions. There are no acute fractures. There is unchanged slight wedging of the T11 vertebral body. Procedure Note Diallo Saab MD - 11/28/2020 EXAMINATION: CT abdomen and pelvis without intravenous contrast. HISTORY: 40-year-old woman with right lower rib pain. TECHNIQUE: Computed tomographic images of the abdomen and pelvis were obtained without the use of intravenous contrast according to standard protocol. COMPARISON: CT abdomen and pelvis dated 11/11/2018. FINDINGS: The lung bases are clear. The heart is normal in size without evidence of pericardial effusion. The liver is steatotic. The gallbladder is normal. An area of hypoattenuation within segment IVb of the liver may represent focal fatty infiltration of the liver. There is no biliary ductal dilation. The spleen, pancreas, adrenals, and kidneys are normal with the exception of a nonobstructing renal stone within the left renal collecting system. A 2 mm stone is present within the proximal left ureter. There may be a tiny punctate stone within the mid aspect of the right ureter (series 2 image 140) There is no hydronephrosis of either kidney. The bladder is normal. The uterus is surgically absent. No adnexal masses are seen. The large bowel is normal course and caliber without evidence of obstruction. The appendix is normal. The esophagus, stomach, and small bowel are normal. The abdominal aorta and its branches are normal course and caliber and contain scattered atherosclerotic calcifications. There is no free intra-abdominal air or free pelvic fluid. There is no suspicious retroperitoneal, mesenteric, or pelvic lymphadenopathy. There are no suspicious osseous lytic blastic lesions. There are no acute fractures. There is unchanged slight wedging of the T11 vertebral body. IMPRESSION: 1. 2 mm stone within the left proximal ureter without evidence of hydronephrosis. Tiny hyperdensity within the region of the right ureter may represent a punctate stone. Dictated by: Kain Tucker M.D. The radiology attending physician has personally reviewed this study, and had reviewed and/or edited this written report and agrees with it. Electronically signed by: Diallo Saab M.D. [facility] CT PROCEDURES Final R esult * XR Hip Left 2 or 3 Views (11/27/2020 8:11 PM CDT) Anatomical Region Laterality Modality Lower Extremities, Hip, Pelvis Left C omputed Radiography 11/27/2020 8:18 PM CDT Impressions 11/27/2020 8:59 PM CDT Normal left hip radiographs. Dictated by: Diallo Martins M.D. The radiology attending physician has personally reviewed this study, and had reviewed and/or edited this written report and agrees with it. Electronically signed by: Zack Lake M.D. Narrative 11/27/2020 8:59 PM CDT EXAMINATION: XR HIP LEFT 2 OR 3 VIEWS HISTORY: Pain with manual rotation of the left hip. COMPARISON: None. FINDINGS: 2 views of the left hip are submitted for interpretation. Alignment of the left hip is normal. There is no acute fracture. Normal left hip joint spaces. Procedure Note Zack Lake MD PhD - 11/27/2020 EXAMINATION: XR HIP LEFT 2 OR 3 VIEWS HISTORY: Pain with manual rotation of the left hip. COMPARISON: None. FINDINGS: 2 views of the left hip are submitted for interpretation. Alignment of the left hip is normal. There is no acute fracture. Normal left hip joint spaces. IMPRESSION: Normal left hip radiographs. Dictated by: Diallo Martins M.D. The radiology attending physician has personally reviewed this study, and had reviewed and/or edited this written report and agrees with it. Electronically signed by: Zack Lake M.D. [facility] XR PROCEDURES Final R esult * (ABNORMAL) Differential, auto (11/27/2020 6:50 PM CDT) Neutrophil abs 10.2(H) 1.7 - 6.5 K/cumm [facility] Imm gran abs 0.1 0.0 - 0.1 K/cumm [facility] Lymphocyte abs 5.1(H) 0.8 - 3.3 K/cumm [facility] Monocyte abs 1.0(H) 0.2 - 0.8 K/cumm [facility] Eosinophil abs 0.2 0.0 - 0.5 K/cumm [facility] Basophil abs 0.1 0.0 - 0.1 K/cumm [facility] Neutrophil pct 61.6 % [facility] Comment: Confirmed by smear review Interpretive Data Percent cell count reference ranges are not reported, since discordance with absolute values may lead to misinterpretation of CBC data. Current Interpretive Data was last revised on 2017. Imm gran pct 0.4 % [facility] Comment: Interpretive Data Percent cell count reference ranges are not reported, since discordance with absolute values may lead to misinterpretation of CBC data. Current Interpretive Data was last revised on 2017. Lymphocyte pct 30.8 % [facility] Comment: Interpretive Data Percent cell count reference ranges are not reported, since discordance with absolute values may lead to misinterpretation of CBC data. Current Interpretive Data was last revised on 2017. Monocyte pct 5.8 % [facility] Comment: Interpretive Data Percent cell count reference ranges are not reported, since discordance with absolute values may lead to misinterpretation of CBC data. Current Interpretive Data was last revised on 2017. Eosinophil pct 1.0 % [facility] Comment: Interpretive Data Percent cell count reference ranges are not reported, since discordance with absolute values may lead to misinterpretation of CBC data. Current Interpretive Data was last revised on 2017. Basophil pct 0.4 % [facility] Comment: Interpretive Data Percent cell count reference ranges are not reported, since discordance with absolute values may lead to misinterpretation of CBC data. Current Interpretive Data was last revised on 2017. Blood specimen (specimen) 11/27/2020 6:50 PM CDT 11/27/2020 7:37 PM CDT us [facility] BLOOD ORDERABLES Sandra clifton Result [facility] Department [place] [address] * (ABNORMAL) Urinalysis, microscopic only (11/27/2020 6:50 PM CDT) WBC, ur 6-10(A) 0 - 5 /HPF [facility] RBC, ur 6-10(A) 0 - 2 /HPF [facility] Epithelial cells, squamous, ur 21-50(A) 0 - 5 /HPF [facility] Comment:Suggestive of contam ination. Consider recollection by clean catch. Bacteria, ur 4+(A) [facility] Mucous, ur Present(A) [facility] Calcium oxalate crystals, ur 1+(A) [facility] Culture Reflex Comment Reflex conditions for urine culture (WBC >10) not met. [facility] Urine, clean voided 11/27/2020 6:50 PM CDT 11/27/2020 7:20 PM CDT [facility] URINE ORDERABLES Sandra l Result Performing Organization Address City/State/[facility] Co de Phone Number [facility] Department [place] [address] * Basic metabolic panel (11/27/2020 6:50 PM CDT) Sodium 138 135 - 145 mmol/L [facility] Potassium, pl 3.7 3.3 - 4.9 mmol/L [facility] Chloride 104 97 - 110 mmol/L [facility] CO2 24 22 - 32 mmol/L [facility] Anion gap 10 2 - 15 mmol/L [facility] BUN 13 8 - 25 mg/dL [facility] Creatinine 0.66 0.60 - 1.10 mg/dL [facility] Glucose 76 70 - 199 mg/dL [facility] Comment: Interpretive Data Fasting glucose >/= [...] interpretive data was last revised 2017. Calcium 9.4 8.5 - 10.3 mg/dL [facility] Blood specimen (specimen) 11/27/2020 6:50 PM CDT 11/27/2020 7:37 PM CDT [facility] BLOOD ORDERABLES Sandra l Result Performing Organization Address City/[facility] de Phone Number [facility] Department [place] [address] * (ABNORMAL) CBC with auto differential (11/27/2020 6:50 PM CDT) WBC 16.5(H) 3.8 - 9.9 K/cumm [facility] Hgb 14.8 11.9 - 15.5 g/dL [facility] Hct 42.2 35.6 - 45.5 % [facility] Plt 282 150 - 400 K/cumm [facility] MPV 9.6 9.1 - 12.3 fL [facility] RBC 4.76 3.90 - 5.20 M/cumm [facility] MCV 88.7 81.3 - 96.4 fL [facility] MCH 31.1 27.1 - 33.3 pg [facility] MCHC 35.1 32.3 - 35.7 g/dL [facility] RDW CV 12.7 11.1 - 14.9 % [facility] RDW SD 41.4 35.7 - 48.1 fL [facility] NRBC abs 0.00 0.00 - 0.01 K/cumm [facility] Blood specimen (specimen) 11/27/2020 6:50 PM CDT 11/27/2020 7:37 PM CDT us An[facility] BLOOD ORDERABLES Sandra l Result Performing Organization Address [facility] Co de Phone Number [facility] Department [place] [address] * (ABNORMAL) Urinalysis reflex to microscopic and culture Urine, clean voided (11/27/2020 6:50 PM CDT) Color, ur Yellow Yellow [facility] Clarity, ur Cloudy(A) Clear [facility] Specific gravity, ur 1.026(H) 1.010 - 1.025 [facility] pH, urine 6 [facility] Protein, ur ql 2+(A) Negative [facility] Glucose, ur ql Negative Negative [facility] Ketones, ur Negative Negative [facility] Bilirubin, ur Negative Negative [facility] Blood, ur Negative Negative [facility] Urobilinogen, ur <2.0 <2.0 mg/dL [facility] Nitrite, ur Negative Negative [facility] Leukocyte esterase, ur 1+(A) Negative [facility] UA reflex comment Reflex to microscopic UA will be performed. [facility] Urine, clean voided 11/27/2020 6:50 PM CDT 11/27/2020 7:20 PM CDT Narrative [facility] - 11/27/2020 7:37 PM CDT ?? Urine pH is affected by diet, medications, systemic acid-base disturbances, and renal tubular function. ??pH may affect urinary stone formation. ??For example, urine pH below 6.0 may help reduce the tendency for calcium phosphate stones and pH greater than 6.0 may reduce the tendency for uric acid stone formation. Source: [employer]oo. Last revised 08-22-2017 [facility] MICROBIOLOGY - GENERA L ORDERABLES Final Result [facility] Department [place] [address] * POCT hCG, urine (11/27/2020 6:30 PM CDT) HCG, ur, POC Negative Lot Number [id number] QC Backgroud Clear Acceptable QC Control Line Acceptable Urine 11/27/2020 6:30 PM CDT [facility] POINT OF CARE TEST ORDERA BLES Final Result documented in this encounter Visit Diagnoses Diagnosis Left nephrolithiasis- Primary Left leg pain Pain in soft tissues of limb documented in this encounter Administered Medications Inactive Administered Medications - up to 3 most recent administrations Medication Order MAR Action Action Date Dose Rate Site acetaminophen (TYLENOL) tablet 650 mg 650 mg, oral, Once, On 11/27/20 at 1736, For 1 dose Given 11/27/2020 6:00 PM CDT 650 mg HYDROcodone-acetaminophen (NORCO) 5-325 mg per tablet 1 tablet 1 tablet, oral, Once, On 11/27/20 at 1913, For 1 dose, Indications: PainIndications:Pain Given 11/27/2020 7:53 PM CDT 1 tablet ondansetron ODT (ZOFRAN-ODT) disintegrating tablet 4 mg 4 mg, oral, Once, On 11/27/20 at 1736, For 1 dose Given 11/27/2020 6:00 PM CDT 4 mg documented in this encounter Discontinued Medications Medication Sig Discontinue Reason Start Date End Da te HYDROcodone-acetaminoph en (NORCO) 5-325 mg per tabletIndications:Pain Take 1-2 tablets by mouth every 6 (six) hours as needed for pain 10/31/2020 11/27/2020 lidocaine (LIDODERM) 5 % Apply 1 patch topically daily Remove after 12 hours (need 12 hour patch free period). 10/31/2020 11/27/2020 documented as of this encounter Active and Recently Administered Medications Times are shown in CDT. Scheduled Medication Order 11/25/2020 11/26/2020 11/27/2020 acetaminophen (TYLENOL) tablet 650 mg (COMPLETED) 650 mg, oral, Once, On 11/27/20 at 1736, For 1 dose 1800 (Given - Provid er: Lucas Raza RN) HYDROcodone-acetaminophen (NORCO) 5-325 mg per tablet 1 tablet (COMPLETED) 1 tablet, oral, Once, On 11/27/20 at 1913, For 1 dose, Indications: Pain 1952 (Given - Provid er: Lucas Raza RN) ondansetron ODT (ZOFRAN-ODT) disintegrating tablet 4 mg (COMPLETED) 4 mg, oral, Once, On 11/27/20 at 1736, For 1 dose 1800 (Given - Provid er: Lucas Raza RN) documented in this encounter Care Teams [place] Hand Relationship Specialty Start Date End Date Damian Sadler MD PCP - General 11/29/16 05/18/22 documented as of this encounter
--- OUTSIDE RECORDS SUMMARY | 2024-08-17 01:55 | XMS_ITS | Encounter Summary ---
Author Organization [facility] Facility Care Team Providers Care Client Relationship Manager Name Role Phone Damian Sadler MD Primary Care Provider [phone] Encounter Details Date Type Department Care Team (Latest Contact Info) Description 11/11/2018 Travel Social History Tobacco Use Types Packs/Day Years Used Date Smoking Tobacco: Every Day Cigarettes Smokeless Tobacco: Never Alcohol Use Standard Drinks/Week Comments No 0 (1 standard drink = 0.6 oz pur e alcohol) Comments No Sex and Gender Information Value Date Recorded Sex Assigned at Not on file Legal Sex Female 9:06 PM CHAPLAINCY Gender Identity Female 10/01/2023 8:44 AM CHAPLAINCY Sexual Orientation Straight 10/01/2023 8: 44 AM CHAPLAINCY documented as of this encounter Plan of Treatment Not on file documented as of this encounter Visit Diagnoses Not on filedocumented in this encounter Care Teams Client Relationship Manager Relationship Specialty Start Date End Date Damian Sadler MD PCP - General 11/29/16 05/18/22 documented as of this encounter
--- OUTSIDE RECORDS SUMMARY | 2024-08-17 01:55 | XMS_ITS | Encounter Summary ---
Author Organization [facility] Healthcare Address [address] [place] [address] Care Team Providers Care Stakeholder Manager Name Role Phone Damian Sadler MD Primary Care Provider [phone] Reason for Visit * Reason Comments Abdominal Pain Encounter Details Date Type Department Care Team (Late st Contact Info) Description 05/20/2018 9:42 AM CDT - 05/20/2018 1:04 PM CDT Emergency [facility] Emergency Department [address] [place] [address] Joao Hensley MD [address] [place] [id number] Gastroenteritis (Primary Dx) Discharge Disposition: Discharge to home or self care Social History Tobacco Use Types Packs/Day Years Used Date Smoking Tobacco: Every Day Cigarettes Smokeless Tobacco: Never Alcohol Use Standard Drinks/Week Comments No 0 (1 standard drink = 0.6 oz pur e alcohol) Comments No Sex and Gender Information Value Date Recorded Sex Assigned at Not on file 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[employer] Gender Identity Female 10/01/2023 8:44 AM [employer] Sexual Orientation Straight 10/01/2023 8: 44 AM [employer]SE[employer] documented as of this encounter Last Filed Vital Signs Vital Sign Reading Time Taken Comments Blood Pressure 149/107 05/20/2018 11:00 AM CDT Pulse 98 05/20/2018 9:52 AM CDT Temperature 37 ??C (98.6 ??F) 05/20/2018 9:52 AM CDT Respiratory Rate 18 05/20/2018 9:52 AM CDT Oxygen Saturation 99% 05/20/2018 11:00 AM CDT Inhaled Oxygen Concentration - - Weight 77.1 kg (170 lb) 05/20/2018 9:52 AM CDT Height 160 cm (5' 3 ) 05/20/2018 9:52 AM CDT Body Mass Index 30.11 05/20/2018 9:52 AM CDT documented in this encounter Discharge Instructions * Attachments The following attachments cannot be sent through Care Everywhere. * Gastroenteritis (AfterCare(R) Instructions(ER/ED)) (Romanian) documented in this encounter Medications at Time of Discharge MULTIVIT-MINERALS/FE RROUS FUM (MULTI VITAMIN ORAL)Indications:hea lth Take 1 tablet by mouth sandblaster paint sprayer 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 omeprazole (PriLOSEC) 20 mg capsuleIndications:T reatment of Non-Bleeding Gastric Disorder Take 1 capsule (20 mg total) by mouth sandblaster paint sprayer 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 cyclobenzaprine (FLEXERIL) 10 mg tablet [...] nausea or vomiting. 15 tablet 05/20/2018 0 documented as of this encounter Ordered Prescriptions Prescription Sig Dispense Quantity Refills Last Filled Start Date End Date ondansetron ODT (ZOFRAN-ODT) 4 mg disintegrating tablet Dissolve 1 tablet oral every 4 hours as needed for nausea or vomiting. 15 tablet 05/20/2018 0 documented in this encounter Discharge Disposition Disposition Code Departure Means Destination Discharge to home or self care documented in this encounter ED Notes * Asha Chris RN - 05/20/2018 9:49 AM CDT Pt C/O lower abdominal pain in her LLQ and RLQ that began Saturday and is accompanied by N/V/D. Pt denies fever and is afebrile upon assessment. Pt has hx of hysterectomy and states she cannot be . Pt reports that her was recently sick with fever and body aches, but no NVD. * Joao Hensley MD - 05/20/2018 9:44 AM CDT HPI No chief complaint on file. Patient is a 38-year-old female who presents emergency room complaining of bilateral lower abdominal pain which started 4 days ago. Patient also complains of nausea vomiting or diarrhea. No blood in stool or emesis. No fevers or chills. Patient does complain of urinary frequency. No flank pain. No chest pain or respiratory complaints. No aggravating or alleviating factors. There is no other complaints of further review of symptoms negative Patient History There are no active problems to display for this patient. Past Medical History: Diagnosis Date ??? Hypertension Past Surgical History: Procedure Laterality Date ??? SECTION ??? HYSTERECTOMY ??? KIDNEY SURGERY No family history on file. Social History Substance Use Topics ??? Smoking status: Current Every Day Smoker Packs/day: 0.50 ??? Smokeless tobacco: Never Used ??? Alcohol use Not on file Social History Social History Narrative ??? No narrative on file Review of Systems Review of Systems All other systems reviewed and are negative. Physical Exam ED Triage Vitals Temp Pulse Resp BP SpO2 -- -- -- -- -- Temp src Heart Rate Source Patient Position BP Location FiO2 (%) -- -- -- -- -- Physical Exam Constitutional: She appears well-developed and well-nourished. No distress. HENT: Head: Normocephalic and atraumatic. Right Ear: External ear normal. Left Ear: External ear normal. Mouth/Throat: Oropharynx is clear and moist. Eyes: Pupils are equal, round, and reactive to light. Conjunctivae and EOM are normal. Neck: Normal range of motion. Neck supple. Cardiovascular: Normal rate, regular rhythm, normal heart sounds and intact distal pulses. Pulmonary/Chest: Effort normal and breath sounds normal. No respiratory distress. Abdominal: Soft. Bowel sounds are normal. There is no tenderness. Musculoskeletal: Normal range of motion. Neurological: She is alert. Skin: Skin is warm and dry. Capillary refill takes less than 2 seconds. She is not diaphoretic. Psychiatric: She has a normal mood and affect. Nursing note and vitals reviewed. [facility] ED Course as of May 20 1210 Time: 05/20 115 Comment: Patient aware of test and CT results, sitting in examination room in no acute distress By: Joao Hensley MD No diagnosis found. Joao Hensley MD 05/20/18 1210 documented in this encounter Plan of Treatment Not on file documented as of this encounter Procedures Procedure Name Priority Date/Time Associated Diagnosis Comments CT ABDOMEN PELVIS W CONTRAST ED 05/20/2018 11:21 AM CDT EGFR STAT 05/20/2018 10:07 AM CDT DIFFERENTIAL AUTO STAT 05/20/2018 10: 07 AM CDT CBC WITH AUTO DIFFERENTIAL STAT 05/20/2018 10:07 AM CDT LIPASE STAT 05/20/2018 10:07 AM CDT COMPREHENSIVE METABOLIC PANEL STAT 05/20/2018 10:07 AM CDT URINALYSIS AND REFLEX TO MICROSCOPIC AND CULTURE STAT 05/20/2018 10:03 AM CDT URINALYSIS, MICROSCOPIC ONLY STAT 05/20/2018 10:03 AM CDT URINE CULTURE STAT 05/20/2018 10:03 AM CDT documented in this encounter Results * CT Abdomen Pelvis W Contrast (05/20/2018 11:21 AM CDT) Anatomical Region Laterality Modality Body N/A Computed Tomogra phy 05/20/2018 11:2 2 AM CDT Impressions 05/20/2018 11:24 AM CDT 1. ??Hepatomegaly and hepatic steatosis. Electronically signed by: Alfonso Veliz M.D. Narrative 05/20/2018 11:24 AM CDT EXAM: CT ABDOMEN PELVIS W CONTRAST HISTORY: Lower abdominal pain COMPARISON: 03/19/2018 at [facility] TECHNIQUE: Following administration of 100 mL Optiray 320 axial images of the abdomen and pelvis were obtained. Sagittal and coronal reconstructions were performed. FINDINGS: Abdomen: Views through the lung bases reveal no acute pulmonary findings. ??The attenuation of the liver is significantly lower than the spleen consistent with fatty change of the liver. ??Focal fat sparing along the gallbladder fossa is noted. ??The liver is enlarged as it measures 20.5 cm in the craniocaudal dimension. ??The gallbladder, spleen, pancreas, kidneys, and adrenal glands are normal. ??The large and small bowel appear overall normal in caliber and configuration. ??The appendix is not well seen. ??No secondary findings of acute appendicitis are evident. ??No free intraperitoneal air or obstruction is seen. ??The abdominal aorta appears overall normal in course and caliber. ??No significant mesenteric or retroperitoneal lymphadenopathy is noted. Pelvis: The urinary bladder is unremarkable. ??The pelvic viscera are normal. ??No free pelvic fluid is seen. ??No pelvic or lymphadenopathy is noted. Procedure Note Alfonso Veliz MD - 05/20/2018 EXAM: CT ABDOMEN PELVIS W CONTRAST HISTORY: Lower abdominal pain COMPARISON: 03/19/2018 at [facility] TECHNIQUE: Following administration of 100 mL Optiray 320 axial images of the abdomen and pelvis were obtained. Sagittal and coronal reconstructions were performed. FINDINGS: Abdomen: Views through the lung bases reveal no acute pulmonary findings. The attenuation of the liver is significantly lower than the spleen consistent with fatty change of the liver. Focal fat sparing along the gallbladder fossa is noted. The liver is enlarged as it measures 20.5 cm in the craniocaudal dimension. The gallbladder, spleen, pancreas, kidneys, and adrenal glands are normal. The large and small bowel appear overall normal in caliber and configuration. The appendix is not well seen. No secondary findings of acute appendicitis are evident. No free intraperitoneal air or obstruction is seen. The abdominal aorta appears overall normal in course and caliber. No significant mesenteric or retroperitoneal lymphadenopathy is noted. Pelvis: The urinary bladder is unremarkable. The pelvic viscera are normal. No free pelvic fluid is seen. No pelvic or lymphadenopathy is noted. IMPRESSION: 1. Hepatomegaly and hepatic steatosis. Electronically signed by: Alfonso Veliz M.D. us Joao Hensley MD IMG CT PROCEDURES Final Resul t * eGFR (05/20/2018 10:07 AM CDT) eGFR >60 mL/min/1.7 3 m2 [facility] ([place]) Comment: Interpretive Data Reference Interval Normal ?>/= 90 mL/min/1.73m2 Mildly decreased* ? 60 - 89 mL/min/1.73m2 Mildly to moderately decreased ?45 - 59 mL/min/1.73m2 Moderately to severely decreased ??30 - 44 mL/min/1.73m2 Severely decreased ?15 - 29 mL/min/1.73m2 Kidney Failure ?< 15 ??mL/min/1.73m2 *Relative to young adult level If -Armenian multiply value by 1.16. Estimated glomerular filtration [...] was last reviewed 2016. Blood specimen (specimen) 05/20/2018 10:07 AM CDT 05/20/2018 10:17 AM CDT Narrative [facility] ([place]) - 05/20/2018 10:45 AM CDT us Joao Hensley MD LAB BLOOD ORDERABLES Final Re sult [facility] ([place]) 1 [facility] Department [place] [address] * (ABNORMAL) Differential, auto (05/20/2018 10:07 AM CDT) Neutrophil abs 8.3(H) 1.7 - 6.5 K/cumm [facility] ([place]) Imm gran abs 0.0 0.0 - 0.1 K/cumm [facility] ([place]) Lymphocyte abs 1.9 0.8 - 3.3 K/cumm [facility] ([place]) Monocyte abs 0.6 0.2 - 0.8 K/cumm [facility] ([place]) Eosinophil abs 0.0 0.0 - 0.5 K/cumm [facility] ([place]) Basophil abs 0.1 0.0 - 0.1 K/cumm [facility] ([place]) Neutrophil pct 75.7 % [facility] ([place]) Comment: Interpretive Data Percent cell count reference ranges are not reported, since discordance with absolute values may lead to misinterpretation of CBC data. Current Interpretive Data was last revised on 2017. Imm gran pct 0.3 % [facility] ([place]) Comment: Interpretive Data Percent cell count reference ranges are not reported, since discordance with absolute values may lead to misinterpretation of CBC data. Current Interpretive Data was last revised on 2017. Lymphocyte pct 17.5 % [facility] ([place]) Comment: Interpretive Data Percent cell count reference ranges are not reported, since discordance with absolute values may lead to misinterpretation of CBC data. Current Interpretive Data was last revised on 2017. Monocyte pct 5.4 % [facility] ([place]) Comment: Interpretive Data Percent cell count reference ranges are not reported, since discordance with absolute values may lead to misinterpretation of CBC data. Current Interpretive Data was last revised on 2017. Eosinophil pct 0.5 % [facility] ([place]) Comment: Interpretive Data Percent cell count reference ranges are not reported, since discordance with absolute values may lead to misinterpretation of CBC data. Current Interpretive Data was last revised on 2017. Basophil pct 0.6 % [facility] ([place]) Comment: Interpretive Data Percent cell count reference ranges are not reported, since discordance with absolute values may lead to misinterpretation of CBC data. Current Interpretive Data was last revised on 2017. Blood specimen (specimen) 05/20/2018 10:07 AM CDT 05/20/2018 10:17 AM CDT Narrative [facility] ([place]) - 05/20/2018 10:22 AM CDT us Joao Hensley MD LAB BLOOD ORDERABLES Final Re sult Performing Organization Address [facility] Co de Phone Number [facility] ([place]) 1 [facility] [place] [address] * Lipase (05/20/2018 10:07 AM CDT) Lipase 35 10 - 99 Units/L [facility] ([place]) Blood specimen (specimen) 05/20/2018 10:07 AM CDT 05/20/2018 10:17 AM CDT Narrative [facility] ([place]) - 05/20/2018 10:45 AM CDT us Joao Hensley MD LAB BLOOD ORDERABLES Final Re sult Performing Organization Address [facility] Co de Phone Number [facility] ([place]) 1 [facility] [place] [address] * (ABNORMAL) Comprehensive metabolic panel (05/20/2018 10:07 AM CDT) Sodium 140 135 - 145 mmol/L [facility] ([place]) Potassium, pl 3.8 3.3 - 4.9 mmol/L [facility] ([place]) Chloride 108 97 - 110 mmol/L [facility] ([place]) CO2 17(L) 22 - 32 mmol/L [facility] ([place]) Anion gap 15 2 - 15 mmol/L [facility] ([place]) BUN 9 8 - 25 mg/dL [facility] ([place]) Creatinine 0.61 0.60 - 1.10 mg/dL [facility] ([place]) Glucose 103 70 - 199 mg/dL [facility] ([place]) [...] Calcium 9.7 8.5 - 10.3 mg/dL [facility] ([place]) Bilirubin, total 0.5 0.1 - 1.2 mg/dL [facility] ([place]) Protein, pl 7.8 6.5 - 8.5 g/dL [facility] ([place]) Albumin 4.7 3.5 - 5.0 g/dL [facility] ([place]) Alk phos 75 40 - 130 Units/L [facility] ([place]) ALT 49(H) 7 - 45 Units/L [facility] ([place]) AST 30 10 - 45 Units/L [facility] ([place]) Blood specimen (specimen) 05/20/2018 10:07 AM CDT 05/20/2018 10:17 AM CDT Narrative [facility] ([place]) - 05/20/2018 10:45 AM CDT us Joao Hensley MD LAB BLOOD ORDERABLES Final Re sult [facility] ([place]) 1 [facility] Department [place] [address] * (ABNORMAL) CBC with auto differential (05/20/2018 10:07 AM CDT) WBC 10.9(H) 3.8 - 9.9 K/cumm [facility] ([place]) Hgb 16.0(H) 11.9 - 15.5 g/dL [facility] ([place]) Hct 44.1 35.6 - 45.5 % [facility] ([place]) Plt 297 150 - 400 K/cumm [facility] ([place]) MPV 9.7 9.1 - 12.3 fL [facility] ([place]) RBC 5.15 3.90 - 5.20 M/cumm [facility] ([place]) MCV 85.6 81.3 - 96.4 fL [facility] ([place]) MCH 31.1 27.1 - 33.3 pg [facility] ([place]) MCHC 36.3(H) 32.3 - 35.7 g/dL [facility] ([place]) RDW CV 11.5 11.1 - 14.9 % [facility] ([place]) RDW SD 35.9 35.7 - 48.1 fL [facility] ([place]) NRBC abs 0.00 0.00 - 0.01 K/cumm [facility] ([place]) Blood specimen (specimen) 05/20/2018 10:07 AM CDT 05/20/2018 10:17 AM CDT Narrative [facility] ([place]) - 05/20/2018 10:22 AM CDT us Joao Hensley MD LAB BLOOD ORDERABLES Final Re sult [facility] ([place]) 1 [facility] Department [place] [address] * (ABNORMAL) Urine culture (05/20/2018 10:03 AM CDT) Report Final Report: Greater than or equal to 100,000 colonies/mL of Escherichia coli (.) [facility] ([place]) Comment:Testing performed by : [facility], [address] [facility], [place]., [address] Organism ESCHERICHIA COLI [facility] ([place]) Urine 05/20/2018 10:0 3 AM CDT 05/20/2018 2:38 PM CDT Narrative [facility] ([place]) - 05/21/2018 8:30 AM CDT Urine culture reflexed based upon urinalysis results. Testing performed by [facility] ([phone]) Organism Antibiotic Method Susceptibility Escherichia coli Ampicillin INTERPRETATION Susceptible Escherichia coli Cefazolin INTERPRETATION Susceptible Escherichia coli Nitrofurantoin INTERPRETATION Susceptible Escherichia coli Gentamicin INTERPRETATION Susceptible Escherichia coli Trimethoprim with Sulfamethoxazole IN TERPRETATION Susceptible Escherichia coli Meropenem INTERPRETATION Susceptible Escherichia coli Cefepime INTERPRETATION Susceptible Escherichia coli Ciprofloxacin INTERPRETATION Susceptible Escherichia coli Ceftazidime INTERPRETATION Susceptible Escherichia coli Ceftriaxone INTERPRETATION Susceptible Escherichia coli Piperacillin/Tazobactam INTERPRETATIO N Susceptible Escherichia coli Cephalexin INTERPRETATION Susceptible Escherichia coli Cefuroxime-axetil INTERPRETATION Susceptible Escherichia coli Cefdinir INTERPRETATION Susceptible Joao Hensley MD LAB MICROBIOLOGY - GENERAL OR DERABLES Final Result Performing Organization Address [facility]/ZIP Co de Phone Number [facility] ([place]) [address] [place] [address] [place] [address] * (ABNORMAL) Urinalysis, microscopic only (05/20/2018 10:03 AM CDT) WBC, ur 11-20(A) 0 - 5 /HPF [facility] ([place]) RBC, ur 0-5 0 - 5 /HPF [facility] ([place]) Epithelial cells, squamous, ur 1-5 0 - 5 /HPF [facility] ([place]) Bacteria, ur 2+(A) [facility] ([place]) Hyaline casts, ur 1-5 0 - 10 /LPF [facility] ([place]) Urine 05/20/2018 10:0 3 AM CDT 05/20/2018 10:06 AM CDT Narrative [facility] ([place]) - 05/20/2018 10:51 AM CDT Joao Hensley MD LAB URINE ORDERABLES Final Re sult Performing Organization Address City/[facility]/ZIP Co de Phone Number [facility] ([place]) [address] [place] [address] [place] [address] * (ABNORMAL) Urinalysis reflex to microscopic and culture Urine (05/20/2018 10:03 AM CDT) Color, ur Yellow Yellow [facility] ([place]) Clarity, ur Clear Clear [facility] ([place]) Specific gravity, ur 1.016 1.010 - 1.025 [facility] ([place]) pH, urine 5.0 [facility] ([place]) Protein, ur ql Negative Negative [facility] ([place]) Glucose, ur ql Negative Negative [facility] ([place]) Ketones, ur Negative Negative [facility] ([place]) Bilirubin, ur Negative Negative [facility] ([place]) Blood, ur Trace(A) Negative [facility] ([place]) Urobilinogen, ur 0.2 mg/dL [facility] ([place]) Nitrite, ur Negative Negative [facility] ([place]) Leukocyte esterase, ur 1+(A) Negative [facility] ([place]) Urine 05/20/2018 10:0 3 AM CDT 05/20/2018 10:06 AM CDT Narrative [facility] ([place]) - 05/20/2018 10:51 AM CDT ?? Urine pH is affected by diet, medications, systemic acid-base disturbances, and renal tubular function. ??pH may affect urinary stone formation. ??For example, urine pH below 6.0 may help reduce the tendency for calcium phosphate stones and pH greater than 6.0 may reduce the tendency for uric acid stone formation. Source: Cyphort. Last revised 08-22-2017 Joao Hensley MD LAB MICROBIOLOGY - GENERAL OR DERABLES Final Result [facility] ([place]) 1 [facility] Department [place] [address] documented in this encounter Visit Diagnoses Diagnosis Gastroenteritis- Primary Other and unspecified noninfectious gastroenteritis and colitis documented in this encounter Administered Medications Inactive Administered Medications - up to 3 most recent administrations Medication Order MAR Action Action Date Dose Rate Site acetaminophen (TYLENOL) tablet 1,000 mg 1,000 mg, oral, Once, On Sat05/20/18 at 1259, For 1 dose Given 05/20/2018 1:01 PM CDT 1,000 mg ioversol intravenous syringe 100 mL 100 mL, intravenous, Once in imaging, contrast, Starting on Sat05/20/18 at 1111, For 1 dose Given 05/20/2018 11:15 AM CDT 100 mL documented in this encounter Active and Recently Administered Medications Times are shown in CDT. Scheduled Medication Order 05/18/2018 05/19/2018 05/20/2018 acetaminophen (TYLENOL) tablet 1,000 mg (COMPLETED) 1,000 mg, oral, Once, On Sat05/20/18 at 1259, For 1 dose 1301 (Given - Provid er: Asha Chris RN) HYDROmorphone (DILAUDID) injection 0.5 mg 0.5 mg, intramuscular, Once, On Sat05/20/18 at 1210, For 1 dose 1210 (Due) ondansetron (ZOFRAN) injection 4 mg 4 mg, intramuscular, Once, On Sat05/20/18 at 1210, For 1 dose 1210 (Due) PRN Medication Order 05/18/2018 05/19/2018 05/20/2018 ioversol intravenous syringe 100 mL (COMPLETED) 100 mL, intravenous, Once in imaging, contrast, Starting on Sat05/20/18 at 1111, For 1 dose 1115 (Given - Provid er: Rosa Eric, R-RT) documented in this encounter Orders Medications Ordered That Noe ht Not Have Been Administered Count Last Ordered Date First Ordered Date acetaminophen (TYLENOL) 500 mg tablet - ADS Override Pull 1 05/20/2018 HYDROmorphone (DILAUDID) injection 0.5 mg 1 05/20/2018 ondansetron (ZOFRAN) injection 4 mg 1 05/20 documented in this encounter Care Teams Stakeholder Manager Relationship Specialty Start Date End Date Damian Sadler MD PCP - General 11/29/16 05/18/22 documented as of this encounter
--- OUTSIDE RECORDS SUMMARY | 2024-08-17 01:55 | XMS_ITS | Encounter Summary ---
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 Gender Identity Female 10/01/2023 8:44 AM SCRATCH FINISHER Sexual Orientation Straight 10/01/2023 8: 44 AM SCRATCH FINISHER documented as of this encounter Last Filed Vital Signs Vital Sign Reading Time Taken Comments Blood Pressure 138/96 04/28/2020 3:00 PM CDT Pulse 66 04/28/2020 3:10 PM CDT Temperature 36.6 ??C (97.9 ??F) 04/28/2020 11:59 AM C DT Respiratory Rate 18 04/28/2020 11:59 AM CDT Oxygen Saturation 100% 04/28/2020 3:10 PM CDT Inhaled Oxygen Concentration - - Weight - - Height - - Body Mass Index - - documented in this encounter Discharge Diagnoses Diagnosis Unspecified abdominal pain - UNSPECIFIED ABDOMINAL PAIN Calculus of kidney - CALCULUS OF KIDNEY Personal history of urinary calculi - PERSONAL HISTORY OF URINARY CALCULI Essential (primary) hypertension - ESSENTIAL (PRIMARY) HYPERTENSION Unspecified essential hypertension Nicotine dependence, cigarettes, uncomplicated - NICOTINE DEPENDENCE, CIGARETTES, UNCOMPLICATED 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 20 tablet 03/19/2018 1 HYDROcodone-acet aminophen (NORCO) 5-325 mg per tabletIndication s:Pain Take 1 tablet by mouth every 6 (six) hours as needed for pain 6 tablet 04/28/2020 1 lisinopril (PRINIVIL,ZESTRI L) 20 mg tablet Take 20 mg by mouth daily. 2 documented as of this encounter Ordered Prescriptions Prescription Sig Dispense Quantity Refills Last Filled Start Date End Date HYDROcodone-acetam inophen (NORCO) 5-325 mg per tabletIndications: Pain Take 1 tablet by mouth every 6 (six) hours as needed for pain 6 tablet 04/28/2020 10/31/2020 documented in this encounter Discharge Disposition Disposition Code Departure Means Destination Discharge to home or self care documented in this encounter ED Notes * Rebecca Arthur MD - 04/28/2020 2:39 PM CDT HPI Chief Complaint Patient presents with ??? Abdominal Pain 40-year-old female with complaint of right lower rib pain beginning of sudden onset at 4:00 a.m. today. Pain was intermittent at 1st and has become more constant since 9:00 a.m. this morning. Patientdescribes the pain as sharp and stabbing with radiation to her chest and back. Patient has had decreased appetite last meal was yesterday evening, ate a pork steak. Pain is rated at a 7/10 right now.Patient is nauseated and had 1 episode of emesis. Patient states that the pain is similar to her kidney stones and previous gallbladder pain. Past medical history includes hypertension, kidney stones and gallbladder pain. Past surgical history includes x3, hysterectomy and elbow surgery. Patient is allergic to tramadol and Toradol Patient smokes half a pack a day. Patient denies alcohol or drug use. Abdominal Pain Pain location: RUQ Pain quality: sharp and stabbing Pain radiates to: Chest and back Pain severity: Moderate Onset quality: Sudden Duration: 11 hours Timing: Constant Progression: Worsening Chronicity: Recurrent Context: awakening from sleep Worsened by: Nothing Relieved by: Pressure. Ineffective treatments: None tried Associated symptoms: anorexia, nausea and vomiting Associated symptoms: no chest pain, no chills, no cough, no diarrhea, no dysuria, no fever, no hematuria, no shortness of breath and no sore throat Risk factors: no alcohol abuse Patient History Patient Active Problem List Diagnosis [...] and palpitations. Gastrointestinal: Positive for abdominal pain, anorexia, nausea and vomiting. Negative for diarrhea. Genitourinary: Negative for dysuria and hematuria. Musculoskeletal: Negative for arthralgias and back pain. Skin: Negative for color change and rash. Neurological: Negative for seizures and syncope. All other systems reviewed and are negative. Physical Exam ED Triage Vitals Temp Pulse Resp BP SpO2 04/28/20 1159 04/28/20 1159 04/28/20 1159 04/28/20 1200 04/28/20 1159 36.6 ??C (97.9 ??F) 72 18 142/99 99 % Temp src Heart Rate Source Patient Position BP Location FiO2 (%) 04/28/20 1159 -- -- -- -- Temporal Physical Exam Vitals signs and nursing note reviewed. Constitutional: General: She is not in acute distress. Appearance: She is well-developed. HENT: Head: Normocephalic and atraumatic. Eyes: Conjunctiva/sclera: Conjunctivae normal. Neck: Musculoskeletal: Neck supple. Cardiovascular: Rate and Rhythm: Normal rate and regular rhythm. Heart sounds: Normal heart sounds. No murmur. Pulmonary: Effort: Pulmonary effort is normal. No respiratory distress. Breath sounds: Normal breath sounds. Abdominal: General: Bowel sounds are normal. There is no distension. Palpations: Abdomen is soft. Tenderness: There is abdominal tenderness in the right upper quadrant. There is no guarding. Skin: General: Skin is warm and dry. Neurological: Mental Status: She is alert and oriented to person, place, and time. Labs Reviewed DIFFERENTIAL AUTO - Abnormal Result Value Neutrophil abs 4.3 Imm gran abs 0.0 Lymphocyte abs 3.7 (*) Monocyte abs 0.6 Eosinophil abs 0.1 Basophil abs 0.0 Neutrophil pct 49.0 Imm gran pct 0.2 Lymphocyte pct 41.7 Monocyte pct 7.2 Eosinophil pct 1.4 Basophil pct 0.5 CBC WITH AUTO DIFFERENTIAL WBC 8.8 Hgb 14.8 Hct 42.7 Plt 262 MPV 9.8 RBC 4.77 MCV 89.5 MCH 31.0 MCHC 34.7 RDW CV 11.9 RDW SD 38.5 NRBC abs 0.00 COMPREHENSIVE METABOLIC PANEL Sodium 138 Potassium, pl 3.6 Chloride 100 CO2 26 Anion gap 12 BUN 15 Creatinine 0.75 Glucose 94 Calcium 9.7 Bilirubin, total 0.4 Protein, pl 7.3 Albumin 4.5 Alk phos 63 ALT 27 AST 20 EGFR GFR 99 LIPASE Lipase 31 FINDINGS: ?? Liver: The liver is normal in size. The echotexture is normal. The echogenicity is increased. There is no surface nodularity. No focal solid lesions are visualized. ?? Gallbladder: The gallbladder is normal in size. There are no stones or sludge within the gallbladder. There is no gallbladder wall thickening. ?? Bile Duct: There is no intrahepatic bile duct dilatation. The common duct measures 4 mm distally. ?? Right Kidney: There is no hydronephrosis in the visualized portions of the right kidney. ?? Pancreas: The visualized portions of the head and body of the pancreas are normal. ?? Inferior vena cava: The proximal IVC is normal. ?? Other Findings: There is no ascites. ? IMPRESSION: 1. Diffuse hepatic steatosis. ?? 2. Normal gallbladder without evidence of acute cholecystitis. ?? Electronically signed by: Damian Rizo M.D. [facility] Medical Decision Making Differential Diagnosis or Management Options: Will evaluate the patient for cholecystitis and pancreatitis. Labs will be ordered and analgesia ordered. I have ordered right upper quadrant ultrasound. 4:21 PM I have rechecked the patient and her pain has improved. She denies any further nausea. I have discussed the results of the labs and imaging studies with the patient she demonstrates understanding of her diagnosis. She states that she has an appointment with her primary care provider Dr. Sadler at the beginning of May and will follow-up with him tomorrow. The patient will continue with clear liquids and then advance to a bland diet this evening. She has been advised to return if her symptoms return, she develops fever or she is unable to tolerate p.o.. Patient is medically stable for discharge at this time. Final diagnoses: Abdominal pain Disposition: Discharged to home Rebecca Arthur MD 04/28/20 1624 documented in this encounter Plan of Treatment Not on file documented as of this encounter Procedures Procedure Name Priority Date/Time Associated Diagnosis Comments US ABDOMEN LIMITED ED 04/28/2020 3: 46 PM CDT LIPASE STAT 04/28/2020 3:21 PM CDT EGFR STAT 04/28/2020 12:20 PM CDT DIFFERENTIAL AUTO STAT 04/28/2020 12: 20 PM CDT CBC WITH AUTO DIFFERENTIAL STAT 04/28/2020 12:20 PM CDT COMPREHENSIVE METABOLIC PANEL STAT 04/28/2020 12:20 PM CDT documented in this encounter Results * US Abdomen Limited (04/28/2020 3:46 PM CDT) Anatomical Region Laterality Modality Abdomen N/A Ultrasound 04/28/2020 3:48 PM CDT Impressions 04/28/2020 3:53 PM CDT 1. Diffuse hepatic steatosis. 2. Normal gallbladder without evidence of acute cholecystitis. Electronically signed by: Damian Rizo M.D. Narrative 04/28/2020 3:53 PM CDT EXAMINATION: US ABDOMEN LIMITED ORDERING HEALTHCARE PROVIDER: REBECCA ARTHUR HISTORY: abdominal pain of unknown cause; RUQ pain. COMPARISON: CT on 11/11/2018 FINDINGS: ?? Liver: The liver is normal in size. ??The echotexture is normal. ??The echogenicity is increased. There is no surface nodularity. No focal solid lesions are visualized. ?? Gallbladder: The gallbladder is normal in size. There are no stones or sludge within the gallbladder. There is no gallbladder wall thickening. Bile Duct: There is no intrahepatic bile duct dilatation. The common duct measures 4 mm distally. ?? Right Kidney: There is no hydronephrosis in the visualized portions of the right kidney. Pancreas: The visualized portions of the head and body of the pancreas are normal. Inferior vena cava: The proximal IVC is normal. Other Findings: There is no ascites. Procedure Note Damian Rizo MD - 04/28/2020 EXAMINATION: US ABDOMEN LIMITED ORDERING HEALTHCARE PROVIDER: REBECCA ARTHUR HISTORY: abdominal pain of unknown cause; RUQ pain. COMPARISON: CT on 11/11/2018 FINDINGS: Liver: The liver is normal in size. The echotexture is normal. The echogenicity is increased. There is no surface nodularity. No focal solid lesions are visualized. Gallbladder: The gallbladder is normal in size. There are no stones or sludge within the gallbladder. There is no gallbladder wall thickening. Bile Duct: There is no intrahepatic bile duct dilatation. The common duct measures 4 mm distally. Right Kidney: There is no hydronephrosis in the visualized portions of the right kidney. Pancreas: The visualized portions of the head and body of the pancreas are normal. Inferior vena cava: The proximal IVC is normal. Other Findings: There is no ascites. IMPRESSION: 1. Diffuse hepatic steatosis. 2. Normal gallbladder without evidence of acute cholecystitis. Electronically signed by: Damian Rizo M.D. Rebecca Arthur MD [facility] US PROCEDURES Final Result * Lipase (04/28/2020 3:21 PM CDT) Lipase 31 10 - 99 Units/L [facility] ([place] Blood specimen (specimen) 04/28/2020 3:21 PM CDT 04/28/2020 3:22 PM CDT Rebecca Arthur MD LAB BLOOD ORDERABLES Final Resul t [facility] ([place]) [facility] [place] [address] * eGFR (04/28/2020 12:20 PM CDT) eGFR 99 mL/min/1.7 3 m2 [facility] ([place]) Comment: Interpretive Data Reference Interval Normal ?>/= 90 mL/min/1.73m2 Mildly decreased* ? 60 - 89 mL/min/1.73m2 Mildly to moderately decreased ?45 - 59 mL/min/1.73m2 Moderately to severely decreased ??30 - 44 mL/min/1.73m2 Severely decreased ?15 - 29 mL/min/1.73m2 Kidney Failure ?< 15 ??mL/min/1.73m2 *Relative to young adult level If -N[place]ian multiply value by 1.16. Estimated glomerular filtration [...] was last reviewed 2016. Blood specimen (specimen) 04/28/2020 12:20 PM CDT 04/28/2020 12:27 PM CDT us Rebecca Arthur MD LAB BLOOD ORDERABLES Final Resul t [facility] [address] [facility] [place] [address] * (ABNORMAL) Differential, auto (04/28/2020 12:20 PM CDT) Neutrophil abs 4.3 1.7 - 6.5 K/cumm [facility] ([place]) Imm gran abs 0.0 0.0 - 0.1 K/cumm [facility] ([place]) Lymphocyte abs 3.7(H) 0.8 - 3.3 K/cumm [facility] ([place]) Monocyte abs 0.6 0.2 - 0.8 K/cumm [facility] ([place]) Eosinophil abs 0.1 0.0 - 0.5 K/cumm [facility] ([place]) Basophil abs 0.0 0.0 - 0.1 K/cumm [facility] ([place]) Neutrophil pct 49.0 % [facility] ([place]) Comment: Interpretive [...] was last revised on 2017. Lymphocyte pct 41.7 % [facility] ([place]) Comment: Interpretive Data Percent cell count reference ranges are not reported, since discordance with absolute values may lead to misinterpretation of CBC data. Current Interpretive Data was last revised on 2017. Monocyte pct 7.2 % [facility] ([place]) Comment: Interpretive Data Percent cell count reference ranges are not reported, since discordance with absolute values may lead to misinterpretation of CBC data. Current Interpretive Data was last revised on 2017. Eosinophil pct 1.4 % [facility] ([place]) Comment: Interpretive Data Percent cell count reference ranges are not reported, since discordance with absolute values may lead to misinterpretation of CBC data. Current Interpretive Data was last revised on 2017. Basophil pct 0.5 % [facility] ([place]) Comment: Interpretive Data Percent cell count reference ranges are not reported, since discordance with absolute values may lead to misinterpretation of CBC data. Current Interpretive Data was last revised on 2017. Blood specimen (specimen) 04/28/2020 12:20 PM CDT 04/28/2020 12:27 PM CDT us Rebecca Arthur MD LAB BLOOD ORDERABLES Final Resul t [facility] ([place]) [address] [facility] [place] [address] * Comprehensive metabolic panel (04/28/2020 12:20 PM CDT) Sodium 138 135 - 145 mmol/L [facility] ([place]) Potassium, pl 3.6 3.3 - 4.9 mmol/L [facility] ([place]) Chloride 100 97 - 110 mmol/L [facility] ([place]) CO2 26 22 - 32 mmol/L [facility] ([place]) Anion gap 12 2 - 15 mmol/L [facility] ([place]) BUN 15 8 - 25 mg/dL [facility] ([place]) Creatinine 0.75 0.60 - 1.10 mg/dL [facility] ([place]) Glucose 94 70 - 199 mg/dL [facility] ([place] [...] 10.3 mg/dL [facility] ([place]) Bilirubin, total 0.4 0.1 - 1.2 mg/dL [facility] ([place]) Protein, pl 7.3 6.5 - 8.5 g/dL [facility] ([place]) Albumin 4.5 3.5 - 5.0 g/dL [facility] ([place]) Alk phos 63 40 - 130 Units/L [facility] ([place]) ALT 27 7 - 45 Units/L [facility]) AST 20 10 - 45 Units/L [facility] ([place]) Blood specimen (specimen) 04/28/2020 12:20 PM CDT 04/28/2020 12:27 PM CDT us Rebecca Arthur MD LAB BLOOD ORDERABLES Final Resul t [facility] ([place]) [address] [facility] [place] [address] * CBC with auto differential (04/28/2020 12:20 PM CDT) WBC 8.8 3.8 - 9.9 K/cumm [facility] ([place]) Hgb 14.8 11.9 - 15.5 g/dL [facility] ([place]) Hct 42.7 35.6 - 45.5 % [facility] ([place]) Plt 262 150 - 400 K/cumm [facility] ([place]) MPV 9.8 9.1 - 12.3 fL [facility] ([place]) RBC 4.77 3.90 - 5.20 M/cumm [facility] ([place]) MCV 89.5 81.3 - 96.4 fL [facility] ([place]) MCH 31.0 27.1 - 33.3 pg [facility] ([place]) MCHC 34.7 32.3 - 35.7 g/dL [facility] ([place]) RDW CV 11.9 11.1 - 14.9 % [facility] ([place]) RDW SD 38.5 35.7 - 48.1 fL [facility] ([place]) NRBC abs 0.00 0.00 - 0.01 K/cumm [facility] ([place]) Blood specimen (specimen) 04/28/2020 12:20 PM CDT 04/28/2020 12:27 PM CDT us Rebecca Arthur MD LAB BLOOD ORDERABLES Final Resul t [facility] ([place]) [address] [facility] [place] [address] documented in this encounter Visit Diagnoses Diagnosis Abdominal pain- Primary Abdominal pain, unspecified site documented in this encounter Administered Medications Inactive Administered Medications - up to 3 most recent administrations Medication Order MAR Action Action Date Dose Rate Site morphine injection 2 mg 2 mg, intravenous, Administer over 4 Minutes, Once, On [place] 04/28/20 at 1505, For 1 dose Given 04/28/2020 3:15 PM CDT 2 mg ondansetron (ZOFRAN) injection 4 mg 4 mg, intravenous, Administer over 2 Minutes, Once, On [place] 04/28/20 at 1505, For 1 dose Given 04/28/2020 3:15 PM CDT 4 mg sodium chloride 0.9% bolus 1,000 mL 1,000 mL, intravenous, at 500 mL/hr, Administer over 2 Hours, Once, On [place] 04/28/20 at 1505, For 1 dose New Bag 04/28/2020 4:12 PM CDT 1,000 mL 500 mL/hr documented in this encounter Active and Recently Administered Medications Times are shown in CDT. Scheduled Medication Order 04/26/2020 04/27/2020 04/28/2020 morphine injection 2 mg (COMPLETED) 2 mg, intravenous, Administer over 4 Minutes, Once, On Seble 04/28/20 at 1505, For 1 dose 1515 (Given - Provid er: Shelbi Domingo RN) ondansetron (ZOFRAN) injection 4 mg (COMPLETED) 4 mg, intravenous, Administer over 2 Minutes, Once, On Seble 04/28/20 at 1505, For 1 dose 1515 (Given - Provid er: Shelbi Domingo RN) sodium chloride 0.9% bolus 1,000 mL (COMPLETED) 1,000 mL, intravenous, at 500 mL/hr, Administer over 2 Hours, Once, On [place] 04/28/20 at 1505, For 1 dose 1612 (New Bag - Prov ider: Angelina Mendoza, RN - Comment: Pt was in [place])1638 (Stopped - Provider: Angelina Mendoza RN) documented in this encounter Care Teams Partition Notcher Relationship Specialty Start Date End Date Damian Sadler MD PCP - General 11/29/16 05/18/22 documented as of this encounter
--- OUTSIDE RECORDS SUMMARY | 2024-08-17 01:55 | XMS_ITS | Encounter Summary ---
Author Organization [facility] Healthcare Address [address] [place] [address] Care Team Providers Care Experimental Electronics Developer Name Role Phone Damian Sadler MD Primary Care Provider Reason for Visit * Reason Comments Flank Pain Encounter Details Date Type Department Care Team (Late st Contact Info) Description 11/26/2021 8:21 PM CDT - 11/26/2021 11:13 PM CDT Emergency [facility] Emergency Department [address] [place] [address] [place] [address] [id number] [place] [address] Kidney stone on right side (Primary Dx); Nausea; Right flank pain Discharge Disposition: Discharge to [...] on file Legal Sex Female 9:06 PM MEDICAL INSURANCE BILLER Gender Identity Female 10/01/2023 8:44 AM MEDICAL INSURANCE BILLER Sexual Orientation Straight 10/01/2023 8: 44 AM MEDICAL INSURANCE BILLER documented as of this encounter Last Filed Vital Signs Vital Sign Reading Time Taken Comments Blood Pressure 155/97 11/26/2021 11:00 PM CDT Pulse 87 11/26/2021 11:00 PM CDT Temperature 36.9 ??C (98.4 ??F) 11/26/2021 8:12 PM CD T Respiratory Rate 16 11/26/2021 11:00 PM CDT Oxygen Saturation 98% 11/26/2021 11:00 PM CDT Inhaled Oxygen Concentration - - Weight 81.8 kg (180 lb 5.4 oz) 11/26/2021 8:12 P M CDT Height 160 cm (5' 3 ) 11/26/2021 8:12 PM CDT Body Mass Index 31.95 11/26/2021 8:12 PM CDT documented in this encounter Discharge Instructions * Discharge Instructions* Glo Ford PA - 11/26/2021 10:52 PM CDT Begin taking Flomax daily to help facilitate passage of kidney stone. Take Tylenol ibuprofen [id number] for pain relief, if pain is persistent take Columbia as prescribed. Be cautious because thismedication does have addictive potential. You can take Zofran if needed for relief of nausea. Return if you develop new or worsening symptoms or pain is persistent with these of these medicines. Schedule appointment with your urologist for further evaluation if your symptoms persist. Follow-up as recommended is mandatory. You have [...] sent through Care Everywhere. * Kidney Stones (AfterCare(R) Instructions(ER/ED)) (Burmese) documented in this encounter Medications at Time of Discharge MULTIVIT-MINERAL S/FERROUS FUM (MULTI VITAMIN ORAL)Indications :health Take 1 tablet by mouth loan analyst 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 omeprazole (PriLOSEC) 20 mg capsuleIndicatio ns:Treatment of Non-Bleeding Gastric Disorder Take 1 capsule (20 mg total) by mouth loan analyst 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 HYDROcodone-acet aminophen (NORCO) 5-325 mg per tabletIndication s:Pain Take 1 tablet by mouth every 6 (six) hours as needed for pain for up to 10 days 10 tablet 11/26/2021 2 cyclobenzaprine (FLEXERIL) 10 mg tablet Take 1 tablet (10 mg total) by mouth every 8 (eight) hours as needed for muscle spasms 12 tablet 10/31/2020 2 lisinopril (PRINIVIL,ZESTRI L) 20 mg tablet Take 20 mg by mouth daily. 2 ondansetron (ZOFRAN) 4 mg tablet Take 1 tablet (4 mg total) by mouth every 6 (six) hours 12 tablet 11/26/2021 2 tamsulosin (FLOMAX) 0.4 mg extended release capsule Take 1 capsule (0.4 mg total) by mouth daily for 14 days 14 capsule 11/26/2021 2 documented as of this encounter Ordered Prescriptions Prescription Sig Dispense Quantity Refills Last Filled Start Date End Date ondansetron (ZOFRAN) 4 mg tablet Take 1 tablet (4 mg total) by mouth every 6 (six) hours 12 tablet 11/26/2021 2 HYDROcodone-acetam inophen (NORCO) 5-325 mg per tabletIndications: Pain Take 1 tablet by mouth every 6 (six) hours as needed for pain for up to 10 days 10 tablet 11/26/2021 2 tamsulosin (FLOMAX) 0.4 mg extended release capsule Take 1 capsule (0.4 mg total) by mouth daily for 14 days 14 capsule 11/26/2021 2 documented in this encounter Discharge Disposition Disposition Code Departure Means Destination Discharge to home or self care documented in this encounter ED Notes * Glo Ford PA - 11/26/2021 8:18 PM CDT HPI Chief Complaint Patient presents with ??? Flank Pain HPI 8:18 PM Renee Luke is a 41 y.o. female presenting to the ED c/o right-sided low back and flank pain that began today along with difficulty urinating since 4:00 a.m. this morning. Patient states shehas been able to urinate a little bit, states she has to bear down and it is only a trickle. Deniespain or burning with urination, no blood in urine. Has history of kidney stones and feels this painis similar. States she has had some nausea, denies fever, chills, vomiting. She has been taking ibuprofen at home for pain relief. Also has history of hypertension, BP is elevated on presentation. Patient History: Past Medical History: Diagnosis Date [...] Alcohol use: No ??? Drug use: No No current facility-administered medications for this encounter. Current Outpatient Medications: ??? cyclobenzaprine (FLEXERIL) 10 mg tablet ??? HYDROcodone-acetaminophen (NORCO) 5-325 mg per tablet ??? lisinopril (PRINIVIL,ZESTRIL) 20 mg tablet ??? MULTIVIT-MINERALS/FERROUS FUM (MULTI VITAMIN ORAL) ??? omeprazole (PriLOSEC) 20 mg capsule ??? ondansetron (ZOFRAN) 4 mg tablet ??? tamsulosin (FLOMAX) 0.4 mg extended release capsule Review of Systems Review of Systems All systems reviewed and are neg or non contributory for this patients presentation today other than as stated in the HPI . Physical Exam ED Triage Vitals Temp Pulse Resp BP SpO2 11/26/21201111/26/21201111/26/21201111/26/21201111/26/212011 36.9 ??C (98.4 ??F) 104 20 (!) 197/130 98 % Temp src Heart Rate Source Patient Position BP Location FiO2 (%) 11/26/21201111/26/21203511/26/21203511/26/212035 -- Oral Monitor Sitting Right arm Physical Exam Vitals and nursing note reviewed. [...] Abdomen is soft. Tenderness: There is abdominal tenderness. There is right CVA tenderness. There is no left CVA tenderness or guarding. Musculoskeletal: Cervical back: Neck supple. Skin: General: Skin is warm and dry. Neurological: Mental Status: She is alert and oriented to person, place, and time. Procedures MDM Labs Reviewed CBC WITH AUTO DIFFERENTIAL - Abnormal Result Value WBC 13.1 (*) Hgb 15.4 Hct 43.0 Plt 267 MPV 9.4 RBC 4.97 MCV 86.5 MCH 31.0 MCHC 35.8 (*) RDW CV 12.0 RDW SD 37.8 NRBC abs 0.00 COMPREHENSIVE METABOLIC PANEL - Abnormal Sodium 140 Potassium, pl 3.9 Chloride 107 CO2 20 (*) Anion gap 13 BUN 10 Creatinine 0.60 Glucose 99 Calcium 9.5 Bilirubin, total 0.2 Protein, pl 7.5 Albumin 4.9 Alk phos 85 ALT 30 AST 21 MANUAL DIFFERENTIAL - Abnormal Differential Manual Cells Counted 100 Neutrophil abs 6.7 (*) Lymphocyte abs 5.5 (*) Monocyte abs 0.9 (*) Neutrophil pct 51.0 Lymphocyte pct 31.0 Monocyte pct 7.0 Variant lymphs 11.0 (*) RBC morphology Normal Platelet estimate Adequate URINALYSIS AND REFLEX TO MICROSCOPIC AND CULTURE Color, ur Straw Clarity, ur Clear Specific gravity, ur 1.012 pH, urine 7.0 Protein, ur ql Negative Glucose, ur ql [...] tendency for uric acid stone formation. Source: [employer].Last revised 08-22-[address] Abdomen Pelvis WO Contrast Final Result FINDINGS: The sensitivity for detection of visceral lesions is diminished without the use of intravenous contrast. ? LOWER CHEST: No significant pulmonary abnormalities. No effusion. ? LIVER: Normal size. No identified cystic or solid masses. ? GALLBLADDER: The gallbladder is contracted limiting evaluation. No stones identified. No wall thickening or inflammatory changes. ? BILE DUCTS: No intrahepatic or extrahepatic ductal dilatation. ? SPLEEN: Normal size. No focal lesions. ? PANCREAS: No identified cystic or solid masses. No significant calcifications. No adjacent inflammation or peripancreatic fluid collections. Pancreatic duct not dilated. ? ADRENALS: Normal. ? KIDNEYS/URINARY TRACT: There is a 4 x 3 mm right ureteral vesicular junction stone. No significant right hydroureter or hydronephrosis. There is a nonobstructing left renal calculus measuring 3 mm within the superior pole. No left hydroureter or hydronephrosis. No identified significant cystic or solid masses. Urinary bladder is unremarkable. ? GI: No dilated bowel loops. No obvious wall thickening. Normal appendix. No significant diverticular disease. ? PERITONEUM: No ascites or free air. ? RETROPERITONEUM: No mass or adenopathy. ? REPRODUCTIVE: No significant abnormality. ? VASCULATURE: Mild aortoiliac atherosclerosis. No abdominal aortic aneurysm. ? MUSCULOSKELETAL: No acute abnormality. Mild multilevel degenerative changes of the thoracic spine. ? OTHER: No other abnormality. ? IMPRESSION: 1 4 x 3 mm right distal ureteral stone at the right UVJ. No significant hydroureter or hydronephrosis. ? 2. Left nephrolithiasis. ? 3. Additional findings, as detailed. ? THIS IS AN ELECTRONICALLY VERIFIED FINAL REPORT 11/26/2021 9:55 PM - Electronically signed by Damian Jean M.D. BP 155/97 (BP Location: Left arm, Patient Position: Lying) Pulse 87 Temp 36.9 ??C (98.4 ??F) (Oral) Resp 16 Ht 160 cm (5' 3 ) Wt 81.8 kg (180 lb 5.4 oz) SpO2 98% BMI 31.95 kg/m?? MDM ED Course as of 11/28/21904 Time: 11/26 2130 Value: WBC(!): 13.1 Comment: (Reviewed) By: Glo Ford PA Time: 11/263 Comment: IMPRESSION: 1 4 x 3 mm right distal ureteral stone at the right UVJ. No significant hydroureter or hydronephrosis. ? 2. Left nephrolithiasis. ? 3. Additional findings, as detailed. By: Glo oFrd PA Time: 11/26 3681 Comment: Patient states pain is improved with Columbia given. CT results and kidney stone discussed with patient, who feels she can be discharged home with Columbia prescription for pain control. Discharged home with Columbia, Zofran, and tamsulosin to help facilitate passage of a kidney stone. Advised follow-up with urologist if symptoms persist without improvement. Return symptoms discussed, patient expressed understanding and is agreeable to plan and discharge. All questions answered. By: Glo Ford PA This examination was transcribed using the [employer] voice recognition system without human research staff member. In an effort to expedite patient care, this report has not been adjusted for typographical, grammatical, and syntax by a trained emergency medical tech. Close outpatient follow-up with a low threshold to return has been mandated , concerning symptoms have been emphasized in detail, and this patient expresses understanding Clinical Impression: Kidney stone on right side Nausea Right flank pain Glo Ford PA 11/28/21 0905 Cosigned by Jana Rizo DO at 12/13/2021 2:53 AM CDT Associated attestation - Jana Rizo DO - 12/13/2021 2:53 AM CDT ED Attestation I did not see this patient. However, I was personally available for consultation in the ED for thispatient if the Advanced Practice Provider (RIA) needed any assistance. The RIA evaluated the patient independently and completed their own examination, documentation, and disposition. * Cynthia Barbour RN - 11/26/2021 8:09 PM CDT Pt reports R flank pain and difficulty urinating since 0 today. Pt reports that she has to bear down to get a small amount of urine out but feels like she need to pee. documented in this encounter Plan of Treatment Not on file documented as of this encounter Procedures Procedure Name Priority Date/Time Associated Diagnosis Comments CT ABDOMEN PELVIS WO CONTRAST ED 11/26/2021 8:43 PM CDT URINALYSIS AND REFLEX TO MICROSCOPIC AND CULTURE STAT 11/26/2021 8:28 PM CDT EGFR STAT 11/26/2021 8:25 PM CDT CBC WITH AUTO DIFFERENTIAL STAT 11/26/2021 8:25 PM CDT MANUAL DIFFERENTIAL STAT 11/26/2021 8 :25 PM CDT COMPREHENSIVE METABOLIC PANEL STAT 11/26/2021 8:25 PM CDT documented in this encounter Results * CT Abdomen Pelvis WO Contrast (11/26/2021 8:43 PM CDT) Anatomical Region Laterality Modality Body N/A Computed Tomogra phy 11/26/2021 9:33 PM CDT Narrative 11/26/2021 9:55 PM CDT EXAM DESCRIPTION: ?? CT ABDOMEN PELVIS WO CONTRAST REASON FOR STUDY: ?? Flank pain, kidney stone suspected ?? Right flank pain onset 0400 this am. Denies other complaints. History of hysterectomy ? TECHNIQUE: CT scan of the abdomen and pelvis performed without intravenous and ??without ??oral contrast using helical scanning technique. Reconstructed coronal and sagittal MPR images reviewed. All images stored on PACS. ?? Automated exposure control was used as a dose optimization technique for this examination. COMPARISON: CT of the abdomen and pelvis dated 11/27/2020. FINDINGS: The sensitivity for detection of visceral lesions is diminished without the use of intravenous contrast. LOWER CHEST: ?? No significant pulmonary abnormalities. No effusion. LIVER: ?? Normal size. ??No identified cystic or solid masses. GALLBLADDER: The gallbladder is contracted limiting evaluation. ?? No stones identified. No wall thickening or inflammatory changes. BILE DUCTS: ?? No intrahepatic or extrahepatic ductal dilatation. SPLEEN: ?? Normal size. ??No focal lesions. PANCREAS: ?? No identified cystic or solid masses. ??No significant calcifications. No adjacent inflammation or peripancreatic fluid collections. Pancreatic duct not dilated. ADRENALS: ?? Normal. KIDNEYS/URINARY TRACT: There is a 4 x 3 mm right ureteral vesicular junction stone. ??No significant right hydroureter or hydronephrosis. ??There is a nonobstructing left renal calculus measuring 3 mm within the superior pole. ?? No left hydroureter or hydronephrosis. ?? No identified significant cystic or solid masses. ?Urinary bladder is unremarkable. GI: ?? No dilated bowel loops. No obvious wall thickening. ??Normal appendix. ?? No significant diverticular disease. PERITONEUM: ?? No ascites or free air. RETROPERITONEUM: ?? No mass or adenopathy. REPRODUCTIVE: ?? No significant abnormality. VASCULATURE: Mild aortoiliac atherosclerosis. ?? No abdominal aortic aneurysm. MUSCULOSKELETAL: ?? No acute abnormality. ?? Mild multilevel degenerative changes of the thoracic spine. OTHER: ?? No other abnormality. IMPRESSION: 1 ??4 x 3 mm right distal ureteral stone at the right UVJ. ?? No significant hydroureter or hydronephrosis. 2. ??Left nephrolithiasis. 3. ??Additional findings, as detailed. THIS IS AN ELECTRONICALLY VERIFIED FINAL REPORT 11/26/2021 9:55 PM - Electronically signed by ??Damian Jean M.D. MF: CHALO D: ??11/26/2021 9:55 PM T: ??11/26/2021 9:55 PM Report ID: [id number] Reading Location: ??[id number] Procedure Note Damian Jean, DO - 11/26/2021 EXAM DESCRIPTION: CT ABDOMEN PELVIS WO CONTRAST REASON FOR STUDY: Flank pain, kidney stone suspected Right flank pain onset 0400 this am. Denies other complaints. History of hysterectomy TECHNIQUE: CT scan of the abdomen and pelvis performed without intravenousand without oral contrast using helical scanning technique. Reconstructed coronal and sagittal MPR images reviewed. All images stored on PACS. Automated exposure control was used as a dose optimization technique forthis examination. COMPARISON: CT of the abdomen and pelvis dated 11/27/2020. FINDINGS: The sensitivity for detection of visceral lesions is diminished without the use of intravenous contrast. LOWER CHEST: No significant pulmonary abnormalities. No effusion. LIVER: Normal size. No identified cystic or solid masses. GALLBLADDER: The gallbladder is contracted limiting evaluation. Nostones identified. No wall thickening or inflammatory changes. BILE DUCTS: No intrahepatic or extrahepatic ductal dilatation. SPLEEN: Normal size. No focal lesions. PANCREAS: No identified cystic or solid masses. No significant calcifications. No adjacent inflammation or peripancreatic fluidcollections. Pancreatic duct not dilated. ADRENALS: Normal. KIDNEYS/URINARY TRACT: There is a 4 x 3 mm right ureteral vesicularjunction stone. No significant right hydroureter or hydronephrosis. There is a nonobstructing left renal calculus measuring 3 mm within the superiorpole. No left hydroureter or hydronephrosis. No identified significant cysticor solid masses. Urinary bladder is unremarkable. GI: No dilated bowel loops. No obvious wall thickening. Normalappendix. No significant diverticular disease. PERITONEUM: No ascites or free air. RETROPERITONEUM: No mass or adenopathy. REPRODUCTIVE: No significant abnormality. VASCULATURE: Mild aortoiliac atherosclerosis. No abdominal aorticaneurysm. MUSCULOSKELETAL: No acute abnormality. Mild multilevel degenerative changes of the thoracic spine. OTHER: No other abnormality. IMPRESSION: 1 4 x 3 mm right distal ureteral stone at the right UVJ. No significant hydroureter or hydronephrosis. 2. Left nephrolithiasis. 3. Additional findings, as detailed. THIS IS AN ELECTRONICALLY VERIFIED FINAL REPORT 11/26/2021 9:55 PM - Electronically signed by Damian Jean M.D. MF: CHALO Report ID: [id number] Reading Location: [place] [address] [address] [facility] PROCEDURES Final Res ult * Urinalysis reflex to microscopic and culture Urine (11/26/2021 8:28 PM CDT) Color, ur Straw Yellow CHARLEEN Comment:Testing performed by : [address] [address] Clarity, ur Clear Clear CHARLEEN Comment:Testing performed by : [address] [address] Specific gravity, ur 1.012 1.003 - 1.030 CHARLEEN Comment:Testing performed by : [address] [address] pH, urine 7.0 CHARLEEN Comment:Testing performed by : [address] [address] Protein, ur ql Negative Negative CHARLEEN Comment:Testing performed by : [address] [address] Glucose, ur ql Negative Negative CHARLEEN Comment:Testing performed by : [address] [address] Ketones, ur Negative Negative CHARLEEN Comment:Testing performed by : [address] [address] Bilirubin, ur Negative Negative CHARLEEN Comment:Testing performed by : [facility], [address] [place] [address]., [address] Blood, ur Negative Negative CHARLEEN Comment:Testing performed by : [facility], [address] [place] [address], [place]., [address] Urobilinogen, ur <2.0 <2.0 mg/dL CHARLEEN Comment:Testing performed by : [address], [place]., [address] Nitrite, ur Negative Negative CHARLEEN Comment:Testing performed by : [address], [place]., [address] Leukocyte esterase, ur Negative Negative CHARLEEN Comment:Testing performed by : [address], [place]., [address] UA reflex comment Reflex conditions for microscopic UA and culture not met. CHARLEEN Comment:Testing performed by : [address], [place]., [address] Urine 11/26/2021 8:28 PM CDT 11/26/2021 8:32 PM CDT Narrative CHARLEEN - 11/26/2021 8:37 PM CDT ?? Urine pH is affected by diet, medications, systemic acid-base disturbances, and renal tubular function. ??pH may affect urinary stone formation. ??For example, urine pH below 6.0 may help reduce the tendency for calcium phosphate stones and pH greater than 6.0 may reduce the tendency for uric acid stone formation. Source: [facility]. Last revised 08-22-2017 us [facility] MICROBIOLOGY - GENERAL ORDERABLES Final Result CHARLEEN [address] [facility] Department [place] [address] * (ABNORMAL) Manual Differential (11/26/2021 8:25 PM CDT) Differential Manual CHARLEEN Comment:Testing performed by : [address], [place]., [address] Cells Counted 100 CHARLEEN Comment:Testing performed by : [address] [address] Neutrophil abs 6.7(H) 1.7 - 6.5 K/cumm CHARLEEN Comment:Testing performed by : [address] [address] Lymphocyte abs 5.5(H) 0.8 - 3.3 K/cumm CHARLEEN Comment:Testing performed by : [address] [address] Monocyte abs 0.9(H) 0.2 - 0.8 K/cumm CHARLEEN Comment:Testing performed by : [address] [address] Neutrophil pct 51.0 % CERKAY Comment: Interpretive Data Percent cell count reference ranges are not reported, since discordance with absolute values may lead to misinterpretation of CBC data. Current Interpretive Data was last revised on 2017. Testing performed by: [address] [address] Lymphocyte pct 31.0 % CHARLEEN Comment: Interpretive Data Percent cell count reference ranges are not reported, since discordance with absolute values may lead to misinterpretation of CBC data. Current Interpretive Data was last revised on 2017. Testing performed by: [address] [address] Monocyte pct 7.0 % CERKAY Comment: Interpretive Data Percent cell count reference ranges are not reported, since discordance with absolute values may lead to misinterpretation of CBC data. Current Interpretive Data was last revised on 2017. Testing performed by: [address] [address] Variant lymph pct 11.0(H) 0.0 - 0.0 % CERKAY Comment:Testing performed by : [address] [address] RBC morphology Normal CHARLEEN Comment:Testing performed by : [address] [address] Platelet estimate Adequate CHARLEEN Comment:Testing performed by : [address] [address] Blood 11/26/2021 8:25 PM CDT 11/26/2021 8:32 PM CDT us [facility] BLOOD ORDERABLES Final Result Performing Organization Address City/[facility]/ZIP Co de Phone Number CHARLEEN WILKINSON [address] [facility] Department [place] [address] * eGFR (11/26/2021 8:25 PM CDT) eGFR 115 mL/min/1. 73 m2 CHARLEEN WILKINSON [...] was last reviewed 2021. Testing performed by: [facility], [address] [place] [address], [place]., [address] Blood 11/26/2021 8:25 PM CDT 11/26/2021 8:32 PM CDT us [facility] BLOOD ORDERABLES Final Result CHARLEEN WILKINSON [address] [facility] Department [place] [address] * (ABNORMAL) Comprehensive metabolic panel (11/26/2021 8:25 PM CDT) Sodium 140 135 - 145 mmol/L CHARLEEN Comment:Testing performed by : [address] [address] Potassium, pl 3.9 3.3 - 4.9 mmol/L CHARLEEN Comment:Testing performed by : [address] [address] Chloride 107 97 - 110 mmol/L CHARLEEN Comment:Testing performed by : [address] [address] CO2 20(L) 22 - 32 mmol/L CHARLEEN Comment:Testing performed by : [address] [address] Anion gap 13 2 - 15 mmol/L CHARLEEN Comment:Testing performed by : [address] [address] BUN 10 8 - 25 mg/dL CHARLEEN Comment:Testing performed by : [address] [address] Creatinine 0.60 0.60 - 1.10 mg/dL CHARLEEN Comment:Testing performed by : [address] [address] Glucose 99 70 - 199 mg/dL CHARLEEN [...] was last revised 2017. Testing performed by: [address] [address] Calcium 9.5 8.5 - 10.3 mg/dL CHARLEEN WILKINSON Comment:Testing performed by : [address] [address] Bilirubin, total 0.2 0.1 - 1.2 mg/dL CHARLEEN WILKINSON Comment:Testing performed by : [address] [address] Protein, pl 7.5 6.5 - 8.5 g/dL CHARLEEN Comment:Testing performed by : [address] [address] Albumin 4.9 3.5 - 5.0 g/dL CHARLEEN Comment:Testing performed by : [address] [address] Alk phos 85 40 - 130 Units/L CHARLEEN Comment:Testing performed by : [address] [address] ALT 30 7 - 45 Units/L CHARLEEN Comment:Testing performed by : [address] [address] AST 21 10 - 45 Units/L CHARLEEN Comment:Testing performed by : [address] [address] Blood 11/26/2021 8:25 PM CDT 11/26/2021 8:32 PM CDT us [facility] BLOOD ORDERABLES Final Result Performing Organization Address City/State/[facility] Co de Phone Number CHARLEEN [address] [facility] Department [place] [address] * (ABNORMAL) CBC with auto differential (11/26/2021 8:25 PM CDT) WBC 13.1(H) 3.8 - 9.9 K/cumm CHARLEEN WILKINSON Comment:Testing performed by : [address] [address] Hgb 15.4 11.9 - 15.5 g/dL CHARLEEN WILKINSON Comment:Testing performed by : [address] [address] Hct 43.0 35.6 - 45.5 % CHARLEEN Comment:Testing performed by : [address] [address] Plt 267 150 - 400 K/cumm CHARLEEN WILKINSON Comment:Testing performed by : [address] [address] MPV 9.4 9.1 - 12.3 fL CHARLEEN Comment:Testing performed by : [address] [address] RBC 4.97 3.90 - 5.20 M/cumm CHARLEEN Comment:Testing performed by : [address] [address] MCV 86.5 81.3 - 96.4 fL CHARLEEN Comment:Testing performed by : [address] [address] MCH 31.0 27.1 - 33.3 pg CHARLEEN Comment:Testing performed by : [address] [address] MCHC 35.8(H) 32.3 - 35.7 g/dL CHARLEEN Comment:Testing performed by : [address] [address] RDW CV 12.0 11.1 - 14.9 % CHARLEEN Comment:Testing performed by : [address] [address] RDW SD 37.8 35.7 - 48.1 fL CHARLEEN Comment:Testing performed by : [address] [address] NRBC abs 0.00 0.00 - 0.01 K/cumm CHARLEEN Comment:Testing performed by : [address] [address] Blood 11/26/2021 8:25 PM CDT 11/26/2021 8:32 PM CDT us [facility] BLOOD ORDERABLES Edited Result - Final CHARLEEN [address] [facility] Department [place] [address] documented in this encounter Visit Diagnoses Diagnosis Kidney stone on right side- Primary Nausea Nausea alone Right flank pain Abdominal pain, unspecified site documented in this encounter Administered Medications Inactive Administered Medications - up to 3 most recent administrations Medication Order MAR Action Action Date Dose Rate Site hydrALAZINE (APRESOLINE) tablet 10 mg 10 mg, oral, Once, On 11/26/21 at 2044, For 1 dose, Indications: hypertensionIndications:hyp ertension Given 11/26/2021 8:35 PM CDT 10 mg HYDROcodone-acetaminophen (NORCO) 5-325 mg per tablet 1 tablet 1 tablet, oral, Once, On 11/26/21 at 2132, For 1 dose, Indications: PainIndications:Pain Given 11/26/2021 9:48 PM CDT 1 tablet lisinopriL (PRINIVIL,ZESTRIL) tablet 20 mg 20 mg, oral, Once, On 11/26/21 at 2208, For 1 dose Given 11/26/2021 10:13 PM CDT 20 mg sodium chloride 0.9% bolus 1,000 mL 1,000 mL, intravenous, at 1,000 mL/hr, Administer over 1 Hours, Once, On 11/26/21 at 2132, For 1 dose New Bag 11/26/2021 9:47 PM CDT 1,000 mL 100 0 mL/hr documented in this encounter Discontinued Medications Medication Sig Discontinue Reason Start Date End Da te tamsulosin (FLOMAX) 0.4 mg extended release capsule Take 1 capsule (0.4 mg total) by mouth daily 11/27/2020 11/26/2021 HYDROcodone-acetaminophe n (NORCO) 5-325 mg per tabletIndications:Pain Take 1-2 tablets by mouth every 4 (four) hours as needed for pain 11/27/2020 11/26/2021 documented as of this encounter Active and Recently Administered Medications Times are shown in CDT. Scheduled Medication Order 11/24/2021 11/25/2021 11/26/2021 hydrALAZINE (APRESOLINE) tablet 10 mg (COMPLETED) 10 mg, oral, Once, On 11/26/21 at 2044, For 1 dose, Indications: hypertension 2034 (Given - Provid er: Lupe Parker RN) HYDROcodone-acetaminophen (NORCO) 5-325 mg per tablet 1 tablet (COMPLETED) 1 tablet, oral, Once, On 11/26/21 at 2132, For 1 dose, Indications: Pain 2147 (Given - Provid er: Lupe Parker, KHADAR) lisinopriL (PRINIVIL,ZESTRIL) tablet 20 mg (COMPLETED) 20 mg, oral, Once, On 11/26/21 at 2208, For 1 dose 221 (Given - Provid er: Lupe Parker, KHADAR) sodium chloride 0.9% bolus 1,000 mL (COMPLETED) 1,000 mL, intravenous, at 1,000 mL/hr, Administer over 1 Hours, Once, On 11/26/21 at 2132, For 1 dose 2146 (New Bag - Prov ider: Lupe Parker RN)2312 (Stopped - Provider: Brendan Longoria RN) documented in this encounter Care Teams Experimental Electronics Developer Relationship Specialty Start Date End Date Dmaian Sadler MD PCP - General 11/29/16 05/18/22 documented as of this encounter
--- OUTSIDE RECORDS SUMMARY | 2024-08-17 01:56 | XMS_ITS | Encounter Summary ---
Author Organization [facility] Facility Care Team Providers Care Prep Manager Name Role Phone Unavailable Primary Care Provider Unavailabl e Encounter Details Date Type Department Care Team (Late st Contact Info) Description 08/06/2014 11:43 AM BUSINESS LIBRARIAN - 08/06/2014 4:00 PM BUSINESS LIBRARIAN Hospital Encounter [facility] Mynor Ruano MD [address] [place] [address] Closed fracture of head of radius; Degeneration of cervical intervertebral disc; Mononeuritis of upper limb; Mononeuritis of lower limb; Degeneration of lumbar or lumbosacral intervertebral disc; Essential hypertension; Tobacco use disorder; Tubal ligation status; Fall from roller skates; Activities involving roller skating (inline) and skateboarding Social History Tobacco Use Types Packs/Day Years Used Date Smoking Tobacco: Never Assessed Comments Unknown Sex and Gender Information Value Date Recorded Sex Assigned at Not on file Legal Sex Female 9:06 PM BUSINESS LIBRARIAN Gender Identity Female 10/01/2023 8:44 AM BUSINESS LIBRARIAN Sexual Orientation Straight 10/01/2023 8: 44 AM BUSINESS LIBRARIAN documented as of this encounter Miscellaneous Notes * Op Note - Provider, MD Margarita - 08/06/2014 12:00 AM CST Patient: Renee Luke Reg No: [id number] U H #: [id number] Admit Dt.: 08/06/2014 : 1980 Pt Type: 200 Room No: [facility] Attending: Mynor Francisco M.D. Surgeon: Mynor Francisco M.D. Dictating: Mynor Francisco M.D. Service Dt: 08/06/2014 OPERATIVE REPORT FIRST REGULATORY CONSULTANT: Darío Miranda. ANESTHESIA: General anesthesia. PREOPERATIVE DIAGNOSIS (ES): Left radial head fracture. POSTOPERATIVE DIAGNOSIS (ES): Left radial head fracture. NAME OF OPERATION: Open reduction and internal fixation of left radial head fracture using micro AcuTrak 2 screws. INDICATIONS FOR PROCEDURE: This patient presented to my office with a displaced radial head fracture. We went over the risks and benefits of the above surgery which I recommended. I explained the risks to include and not be limited to risk of anesthesia, bleeding, infection, nerve injury, tendon injury, possibility of persistent pain or problems healing. I did recommend she quit smoking. She understood and wished to proceed. DESCRIPTION OF PROCEDURE: After consent was reviewed and the operative site was marked, the patient was brought to the operating room and kept supine on the operative stretcher. She underwent induction of general anesthesia and preoperative antibiotics were given. The left arm was prepped and draped with Chlorhexidine with high arm tourniquet. We performed a verbal time out to verify the above information. We exsanguinated the limb and inflated to tourniquet. We began the case with a longitudinal incision over the line of the radiocapitellar joint. This was carried sharply through the skin and subcutaneous tissue down to the fascia layer. We again palpated the radiocapitellar and incised in its midline. We then carefully went down through the muscle and fascia. Visualized the leading edge of the supinator. We then incised deep capsule and supinator over the radiocapitellar joint equator. There was blood within the joint. We elevated the anterior tissues off the front of the lateral humerus keeping the lateral collateral ligament intact. We then saw the displaced radial head fracture which had an articular gap and step off. The anterior half of the joint was impacted. We gently worked with a [place] to get this off the radial neck and once we were able to move this piece, it was able to reduce it very nicely. We then put two micro AcuTrak guide pins. Each of these were placed. We measured. We drilled. Then, we placed two micro AcuTrak screws. Each of these were buried just under the subchondral bone of the fracture site. At this point then, we had full rotation of the forearm. There was no crepitance. We took AP, lateral and oblique FluoroScan images with rotation of the forearm and did not see any prominence of screws beyond the other side of the radial head. Articular reduction was nearly anatomic under direct vision as was the periphery which would provide supination and pronation. Happy with all of this, the wound was irrigated. We went ahead and closed the deep fascia with a #1 Ethibond suture. Superficial fascia also closed with that. Vicryl and Monocryl used to close the skin. 0.5% Marcaine and epinephrine injected subcutaneously. Soft dressing and splint applied. Of note, before the case, I also did a stress examination on the medial side of the elbow under fluoroscopy and it did not demonstrate any gapping on the medial side indicating the medial collateral ligament was intact. Once the patient was splinted. She was awakened, taken to the recovery room in stable condition. I was present for the entire case. SPECIMENS REMOVED: None. ESTIMATED BLOOD LOSS: Minimal. INTRAOPERATIVE FLUIDS: Per the anesthesia record. SPONGE/INSTRUMENT/NEEDLE COUNTS: Correct. CONDITION ON DISCHARGE FROM OPERATING ROOM: Stable to recovery. COMPLICATIONS: None. Electronically Signed By Mynor Francisco M.D. 08/25/2014 07:03 A Jillian Markham/nighat #[id number] Editing MT: TD: 08/06/2014 15:24:00 cc: Orthopedic Billing Mynor Francisco M.D. documented in this encounter Plan of Treatment Not on file documented as of this encounter Visit Diagnoses Diagnosis Closed fracture of head of radius Degeneration of cervical intervertebral disc Mononeuritis of upper limb Unspecified mononeuritis of upper limb Mononeuritis of lower limb Unspecified mononeuritis of lower limb Degeneration of lumbar or lumbosacral intervertebral disc Essential hypertension Unspecified essential hypertension Tobacco use disorder Tubal ligation status Fall from roller skates Activities involving roller skating (inline) and skateboarding documented in this encounter
--- OUTSIDE RECORDS SUMMARY | 2024-08-17 01:56 | XMS_ITS | Encounter Summary ---
Author Organization [facility] Facility Care Team Providers Care Wardrobe Attendant Name Role Phone Unavailable Primary Care Provider Unavailabl e Encounter Details Date Type Department Care Team (Latest Contact Info) Description 12/28/2015 7:16 PM CDT - 12/29/2015 6:24 AM CDT Hospital Encounter [facility] Boom Holley MD [address] [facility] [facility] [address] [place] [address] Lower abdominal pain; Cigarette nicotine dependence, uncomplicated; Essential (primary) hypertension; Other specified postprocedural state; 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 Social History Tobacco Use Types Packs/Day Years Used Date Smoking Tobacco: Never Assessed Comments Unknown Sex and Gender Information Value Date Recorded Sex Assigned at Not on file Legal Sex Female 9:06 PM SELF PROPELLED DREDGE OPERATOR Gender Identity Female 10/01/2023 8:44 AM SELF PROPELLED DREDGE OPERATOR Sexual Orientation Straight 10/01/2023 8: 44 AM SELF PROPELLED DREDGE OPERATOR documented as of this encounter Plan of Treatment Not on file documented as of this encounter Procedures Procedure Name Priority Date/Time Associated Diagnosis Comments CT ABDOMEN PELVIS W CONTRAST Routine 12/29/2015 5:01 AM CDT BLOOD LACTIC ACID Routine 12/29/2015 3:2 2 AM CDT URINE CHORIONIC GONADOTROPIN (HCG) Routine 12/29/2015 12:34 AM CDT URINALYSIS Routine 12/29/2015 12:05 AM CDT DISCHARGE LABORATORY CUMULATIVE REPORT 12/29/2015 SERUM LIPASE Routine 12/28/2015 9:09 PM CDT PLASMA HEPATIC FUNCTION PANEL Routine 12/28/2015 9:09 PM CDT PLASMA BASIC METABOLIC PANEL Routine 12/28/2015 9:09 PM CDT BLOOD CELL COUNT (CBC) Routine 12/28/2015 9:09 PM CDT BLOOD CELL MORPHOLOGIC EXAM Routine 12/28/2015 9:09 PM CDT documented in this encounter Results * CT Abdomen Pelvis W Contrast (12/29/2015 5:01 AM CDT) Anatomical Region Laterality Modality Body N/A Computed Tomogra phy 12/29/2015 5:01 AM CDT Narrative 12/29/2015 11:04 AM CDT SHARAD MONROY M.D. LEVY VELA M.D. FINAL REPORT The radiology attending physician has personally reviewed this study, and has reviewed and/or edited this written report and agrees with it. ACC# ??Date Time ??Exam [id number] December 29, 2015 05:01:[address] Abd & Pelvis with cont EXAMINATION: ?CT OF THE ABDOMEN AND PELVIS with INTRAVENOUS ??CONTRAST HISTORY: ??35-year-old woman 6 days postop from right salpingo-oophorectomy for ovarian torsion. The patient is now having severe suprapubic pain. TECHNIQUE: Transaxial computed tomographic images of the abdomen and pelvis were obtained following administration of 92 mL Optiray 350 intravenous ??contrast according to standard protocol. ??No immediate complications following contrast administration. FINDINGS: Comparison is made to prior study dated 12/22/2015. Mild mosaic attenuation within the lung bases bilaterally likely reflects small airways disease. The heart is normal in size without pericardial effusion. The liver enhances homogeneously without evidence of lesion. The spleen, pancreas, gallbladder, and adrenal glands are normal. No biliary ductal dilatation. The kidneys enhance homogeneously without hydronephrosis. No renal or ureteral stones. The bladder is unremarkable. There has been interval right salpingo-oophorectomy. No free pelvic fluid or free intraperitoneal gas. Follicles are present within the left ovary. Low-attenuation, tubular structure running along the broad ligament may represent a small focal fluid collection versus residual fallopian tube or ovarian tissue. The large and small bowel is normal in caliber without evidence of obstruction. The appendix is visualized in its entirety and is normal. The aorta is normal in course and caliber. No pelvic or abdominal lymphadenopathy. No suspicious osseous lytic or blastic lesions. IMPRESSION: ? 1. No CT explanation for the patient's abdominal pain. 2. Postoperative changes of right salpingo-oophorectomy. Requested By: NABIL ZAMORA M.D. Dictated By: ?? LEVY VELA M.D. ??on Dec 29 2015 ??5:20A This document has been electronically signed by: SHARAD MONROY M.D. on Dec 29 2015 11:03A [id number] Procedure Note Provider, MD Margarita - 12/09/2016 SHARAD MONROY M.D. LEVY VELA M.D. FINAL REPORT The radiology attending physician has personally reviewed this study, and has reviewed and/or edited this written report and agrees with it. [facility]# Date Time Exam [id number] December 29, 2015 05:01:[address] Abd & Pelvis with cont EXAMINATION: CT OF THE ABDOMEN AND PELVIS with INTRAVENOUS CONTRAST HISTORY: 35-year-old woman 6 days postop from right salpingo-oophorectomy for ovarian torsion. The patient is now having severe suprapubic pain. TECHNIQUE: Transaxial computed tomographic images of the abdomen and pelvis were obtained following administration of 92 mL Optiray 350 intravenous contrast according to standard protocol. No immediate complications following contrast administration. FINDINGS: Comparison is made to prior study dated 12/22/2015. Mild mosaic attenuation within the lung bases bilaterally likely reflects small airways disease. The heart is normal in size without pericardial effusion. The liver enhances homogeneously without evidence of lesion. The spleen, pancreas, gallbladder, and adrenal glands are normal. No biliary ductal dilatation. The kidneys enhance homogeneously without hydronephrosis. No renal or ureteral stones. The bladder isunremarkable. There has been interval right salpingo-oophorectomy. No free pelvic fluid or free intraperitoneal gas. Follicles are present within the left ovary. Low-attenuation, tubular structure running along the broad ligament may represent a small focal fluid collection versus residual fallopian tube or ovarian tissue. The large and small bowel is normal in caliber without evidence of obstruction. The appendix is visualized in its entirety and is normal. The aorta is normal in course and caliber. No pelvic or abdominal lymphadenopathy. No suspicious osseous lytic or blastic lesions. IMPRESSION: 1. No CT explanation for the patient's abdominal pain. 2. Postoperative changes of right salpingo-oophorectomy. Requested By: NABIL ZAMORA M.D. Dictated By: LEVY VELA M.D. on Dec 29 2015 5:20A This document has been electronically signed by: SHARAD MONROY M.D. on Dec 29 2015 11:03A [id number] Historical Provider IMG CT PROCEDURES Final R esult * Blood lactic acid (12/29/2015 3:22 AM CDT) Lactic acid 1.3 0.7 - 2.2 mmol/L HISTORICAL RESULTS Blood specimen (specimen) 12/29/2015 3:22 AM CDT Result [facility] Historical Julio C CURIEL LAB BLOOD ORDERABLES Sandra l Result HISTORICAL RESULTS * Urine chorionic gonadotropin (HCG) (12/29/2015 12:34 AM CDT) HCG, ur Negative HISTORICAL RESULTS Urine 12/29/2015 12:3 4 AM CDT Casey Benton MD LAB BLOOD ORDERABLES Final Res ult HISTORICAL RESULTS * (ABNORMAL) Urinalysis (12/29/2015 12:05 AM CDT) Color, ur Yellow Yellow HISTORICAL RESULTS Clarity, ur Cloudy(A) Clear HISTORIC AL RESULTS Specific gravity, ur 1.020 1.003 - 1.030 HISTORICAL RESULTS pH, ur 5.0 5.0 - 8.0 HISTORICAL RESULTS Protein, ur Negative Trace HISTORIC AL RESULTS Glucose, ur Negative Negative HISTORIC AL RESULTS Ketones, ur Negative Negative HISTORIC AL RESULTS Bilirubin, ur Negative Negative HISTOR ICAL RESULTS U Blood Negative Negative HISTORICAL RESULTS Urobilinogen, quant, ur <2.0 <2.0 mg/dl HISTORICAL RESULTS Nitrites, ur Negative Negative HISTORI SWTEA RESULTS Leukocyte esterase, ur Negative Negative HISTORICAL RESULTS Urine 12/29/2015 12:0 5 AM CDT Casey Benton MD LAB BLOOD ORDERABLES Final Res ult Performing Organization Address [facility] de Phone Number HISTORICAL RESULTS * DISCHARGE LABORATORY CUMULATIVE REPORT (12/29/2015) Narrative 12/29/2015 Ordered by an unspecified provider. Historical Provider LAB BLOOD ORDERABLES Sandra l Result * Plasma hepatic function panel (12/28/2015 9:09 PM CDT) Protein, pl 7.6 6.5 - 8.5 g/dl HISTORICAL RESULTS Alb 4.6 3.5 - 5.0 g/dl HISTORICAL RESULTS Bilirubin 0.3 0.1 - 1.2 mg/dl HISTORICAL RESULTS Alk phos 77 40 - 130 Units/L HISTORICAL RESULTS AST 32 10 - 45 Units/L HISTORICAL RESULTS ALT 30 7 - 45 Units/L HISTORICAL RESULTS Bilirubin, direct <0.2 0.1 - 0.3 mg/dl HISTORICAL RESULTS Plasma 12/28/2015 9:09 PM CDT Casey Benton MD LAB BLOOD ORDERABLES Final Res ult Performing Organization Address [facility] Co de Phone Number HISTORICAL RESULTS * Plasma basic metabolic panel (12/28/2015 9:09 PM CDT) Sodium 141 135 - 145 mmol/L HISTORICAL RESULTS K, pl 4.3 3.3 - 4.9 mmol/L HISTORICAL RESULTS Chloride 102 97 - 110 mmol/L HISTORICAL RESULTS CO2 25 22 - 32 mmol/L HISTORICAL RESULTS A. gap 14 2 - 15 mmol/L HISTORICAL RESULTS Glucose 83 70 - 199 mg/dl HISTORICAL RESULTS BUN 12 8 - 25 mg/dl HISTORICAL RESULTS Creatinine 0.71 0.60 - 1.10 mg/dl HISTORICAL RESULTS Calcium 9.8 8.5 - 10.3 mg/dl HISTORICAL RESULTS Plasma 12/28/2015 9:09 PM CDT Casey Benton MD LAB BLOOD ORDERABLES Final Res ult Performing Organization Address [facility] de Phone Number HISTORICAL RESULTS * Serum lipase (12/28/2015 9:09 PM CDT) Lip 32 10 - 99 Units/L HISTORICAL RESULTS Serum 12/28/2015 9:09 PM CDT Casey Benton MD LAB BLOOD ORDERABLES Final Res ult Performing Organization Address [facility] de Phone Number HISTORICAL RESULTS * Blood cell count (CBC) (12/28/2015 9:09 PM CDT) WBC 9.7 3.8 - 9.9 K/cumm HISTORICAL RESULTS RBC 4.66 3.90 - 5.20 M/cumm HISTORICAL RESULTS Hgb 14.2 11.9 - 15.5 g/dl HISTORICAL RESULTS Hct 41.2 35.6 - 45.5 % HISTORICAL RESULTS MCV 88.4 81.3 - 96.4 fl HISTORICAL RESULTS MCH 30.5 27.1 - 33.3 pg HISTORICAL RESULTS MCHC 34.5 32.3 - 35.7 g/dl HISTORICAL RESULTS Rdw 12.2 11.1 - 14.9 % HISTORICAL RESULTS RDW 38.9 35.7 - 48.1 fl HISTORICAL RESULTS Platelets 279 150 - 400 K/cumm HISTORICAL RESULTS MPV 9.5 9.1 - 12.3 fl HISTORICAL RESULTS NRBC 0.0 0.0 - 0.2 % HISTORIC AL RESULTS NRBC, abs 0.00 0.00 - 0.01 K/cumm HISTORICAL RESULTS Blood specimen (specimen) 12/28/2015 9:09 PM CDT Casey Benton MD LAB BLOOD ORDERABLES Final Res ult HISTORICAL RESULTS * Blood cell morphologic exam (12/28/2015 9:09 PM CDT) Neutrophils 58.2 % HISTORIC AL RESULTS Immature granulocytes 0.2 % HISTORICAL RESULTS Lymphocytes 32.0 % HISTORIC AL RESULTS Monos 7.3 % HISTORICAL RESULTS Eosinophils 1.8 % HISTORIC AL RESULTS Basophils 0.5 % HISTORICAL RESULTS Neutrophils, abs 5.6 1.7 - 6.5 K/cumm HISTORICAL RESULTS Immature granulocyte, abs 0.0 0.0 - 0.1 K/cumm HISTORICAL RESULTS Lymphocytes, abs 3.1 0.8 - 3.3 K/cumm HISTORICAL RESULTS Monocytes, absolute 0.7 0.2 - 0.8 K/cumm HISTORICAL RESULTS Eosinophils, abs 0.2 0.0 - 0.5 K/cumm HISTORICAL RESULTS Basophils, abs 0.0 0.0 - 0.1 K/cumm HISTORICAL RESULTS Blood specimen (specimen) 12/28/2015 9:09 PM CDT Casey Benton MD LAB BLOOD ORDERABLES Final Res ult Performing Organization Address [facility] Co de Phone Number HISTORICAL RESULTS documented in this encounter Visit Diagnoses Diagnosis Lower abdominal pain Abdominal pain, other specified site Cigarette nicotine dependence, uncomplicated Essential (primary) hypertension Unspecified essential hypertension Other specified postprocedural state 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
--- OUTSIDE RECORDS SUMMARY | 2024-08-17 01:56 | XMS_ITS | Encounter Summary ---
Author Organization [facility] Facility Care Team Providers Care Licensed Veterinary Technician Name Role Phone Unavailable Primary Care Provider Unavailabl e Encounter Details Date Type Department Care Team (Late st Contact Info) Description 12/22/2015 4:05 PM CDT - 12/23/2015 3:31 AM CDT Hospital Encounter [facility] Suman Cowan MD PhD [address] [facility] [address] [place] [address] Other ovarian cyst; Elevated white blood cell count; Essential (primary) hypertension; Gastro-esophageal reflux disease without esophagitis; Irritable bowel syndrome without diarrhea; Cigarette nicotine dependence, uncomplicated; 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) 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; Family history of ischemic heart disease and other diseases of the circulatory system Social History Tobacco Use Types Packs/Day Years Used Date Smoking Tobacco: Never Assessed Comments Unknown Sex and Gender Information Value Date Recorded Sex Assigned at Not on file Legal Sex Female 9:06 PM 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 Surgeon: Natalee Pedersen M.D. Dictating: Cherry Leiva M.D. Service Dt: 12/23/2015 OPERATIVE REPORT FACILITY: [facility] STE[employer] TENDERIZER MACHINE: Cherry Leiva MD ANESTHESIA: General endotracheal anesthesia. PREOPERATIVE DIAGNOSIS (ES): 1. Right adnexal mass. 2. Concern for ovarian torsion. POSTOPERATIVE DIAGNOSIS (ES): 1. Complex right ovarian cyst. 2. No ovarian torsion. NAME OF OPERATION: 1. Examination under anesthesia. 2. Laparoscopic right salpingo-oophorectomy. INDICATIONS FOR PROCEDURE: Ms. Luke is a 35-year-old, 3, para 3-0-0-3, with last menstrual period in 2009. She presented with sharp right lower quadrant pain. The patient stated that she had been developing the right lower quadrant pain over the last year that comes and goes and most recently has started to worsen. On 12/13, she was seen at [facility] where a CT of the abdomen and pelvis revealed a 3 cm right ovarian cyst with no other abdominal pelvic cause for her pain. The patient then reported that she developed the pain acutely yesterday morning and it suddenly became much worse today. She describes it as stabbing in her right side and radiating to her back. Nothing makes it better or worse. She did endorse nausea but no vomiting. She underwent a repeat CT scan which revealed enlargement of this right adnexal cyst to now 5.9 x 4.3 cm. The orientation of the cyst is now more posteriorly located near the midline with a small amount of free fluid adjacent to the ovary. The large and small bowel were found to be normal in caliber without wall thickening or obstruction. Given these CT findings, there was concern for possible ovarian torsion. A vaginal ultrasound subsequently revealed large posterior masses with septations with the first mass measuring 5.10 x 4.17 x 3.56 cm. The second mass which was adjacent to this with a septation measuring 3.57 x 3.46 x 4.28, and the last adnexal mass which is also adjacent to this structure by septation measured 2.73 x 3.0 x 2.53 cm. Overall, this structure appeared to be in the midline posterior cul-de-sac and was complex in character. Given this imaging finding in addition to acute onset of pelvic pain, as well as physical examination findings concerning for possible ovarian torsion, the decision was made to proceed to the operating room for an examination under anesthesia, diagnostic laparoscopy, and a possible unilateral oophorectomy. Consents had been signed prior to arrival to the operating room. OPERATIVE FINDINGS: Examination under anesthesia revealed a mass in the posterior cul-de-sac that was freely mobile. She was found to have a freely mobile anteverted uterus. There was no parametrial or nodularity noted. Laparoscopic findings revealed a normal-appearing anteverted uterus, normal-appearing left ovary and left fallopian tube. She was found to have a large complex right cystic-appearing ovarian mass. Her appendix appeared normal. She had normal-appearing liver, bowel, and gastric edge. She was found to have omental adhesion in the midline of her abdomen that was easily maneuverable in terms of operative visualization. There were no pelvic adhesions within the area of the uterus and the adnexa despite history of three prior sections. DESCRIPTION OF PROCEDURE: After obtaining the appropriate operative consents, the patient was taken to the operating room where general endotracheal anesthesia was obtained without difficulty. She was prepped and draped in the usual sterile fashion. Her examination under anesthesia revealed the above findings. The Jarrett catheter was placed and the anterior lip of the cervix was grasped with a tenaculum. She was subsequently dilated and a Hulka tenaculum was placed in the normal fashion for uterine manipulation. Attention was then turned to the abdomen where 0.25% Marcaine was injected into the caudad fold of the umbilicus. A 5 mm skin incision was then made in this location. A 5 mm umbilical visual trocar was then advanced into the peritoneal cavity while tenting up the abdominal wall under visualization. Intraperitoneal placement was confirmed with the laparoscope. Pneumoperitoneum was achieved to 15 mmHg with carbon dioxide gas. At this time, a survey of the abdomen and pelvis revealed the findings as above. The patient was placed in the Trendelenburg position to facilitate movement of the bowel into the upper abdomen. Even though there was found to be an omental adhesion in the midline of the abdomen, the adhesion was not significant such that it impaired operative visualization and maneuverability was excellent. As such, secondary port with 5 mm laparoscopic trocars were then placed after injection of local anesthesia similar to above and the scalpel was used to make the skin incisions. The trocars were placed in the left lower quadrant and the right lower quadrant in the usual fashion under visualization with care taken to avoid the abdominal wall vasculature. With operative ports in place, instruments were advanced into the abdomen. A thorough survey was made of the adnexal structures. She was found to not have a torsed right ovary but instead what appeared to be a large complex cystic-appearing mass. Given the patient's history of right lower quadrant pain and acute onset of pelvic pain and changes in the appearance of this mass over a short interval time, the decision was made to proceed with a right salpingo-oophorectomy. The right adnexa was then lifted so as to visualize the right ureter coursing distally. It was noted to be well posterior to the infundibulopelvic ligament. The infundibulopelvic ligament was then grasped with the EnSeal device and was desiccated and divided. The EnSeal device was then advanced along the infundibulopelvic ligament within the mesosalpinx so as to completely release the connection between the right tube and the right ovary from the infundibulopelvic ligament in the mesosalpinx. She was noted to have excellent hemostasis along the desiccation sites. At this time, the right lower quadrant port was removed and the skin incision was extended to 10 mm to allow accommodation for a 10 mm laparoscopic trocar. This was placed in the usual fashion under visualization with the laparoscope. The 10 mm EndoCatch bag was then placed in the abdomen where the right adnexal mass and tube were placed within the bag and this was removed via the right lower quadrant under direct visualization with no rupture within the abdomen. The specimen was then removed from the abdomen. Hemostasis was assured. The right lower quadrant secondary port was then closed with a Alireza-Andria fascial closure device using 0 Vicryl suture. Hemostasis and an air-tight closure was noted. The small amount of pelvic fluid was then removed from the abdomen. The pneumoperitoneum was then reduced to 5 mmHg and hemostasis was again assured across the infundibulopelvic ligament and the mesosalpinx. The pneumoperitoneum was then desufflated from the abdomen and the patient was given two large breaths from the anesthesia team to facilitate removal of any remaining pneumoperitoneum and the umbilical ports were then removed under visualization and noted to be hemostatic. The three skin incisions were then closed with 4-0 Monocryl in a running subcuticular fashion in addition to a subcuticular box stitch. Bandages were applied. The Hulka tenaculum was removed from the patient's cervix and the site was noted to be hemostatic. The patient's Jarrett was removed. The patient tolerated the procedure well. She was taken to the recovery room in stable condition. SPECIMENS REMOVED: Right ovary and portion of tube. ESTIMATED BLOOD LOSS: Less than 20 mL. URINE OUTPUT: 60 mL of clear yellow urine was seen at the end of the procedure. INTRAOPERATIVE FLUIDS: SPONGE/INSTRUMENT/NEEDLE COUNTS: Sponge, lap and needle counts were correct times two. CONDITION ON DISCHARGE FROM OPERATING ROOM: Stable. COMPLICATIONS: None. ATTESTATION STATEMENT: The attending Dr. Natalee Pedersen was present for the entire procedure. Electronically Authenticated by: Natalee Pedersen MD On 01/03/2016 10:07 AM CDT Electronically Authenticated by: Cherry Leiva MD On 04/05/2016 10:24 AM CDT Cherry Leiva M.D. Natalee Pedersen M.D. HOLLI:cl #[id number] Editing MT: TD: 12/23/2015 11:39 AM documented in this encounter Plan of Treatment Not on file documented as of this encounter Procedures Procedure Name Priority Date/Time Associated Diagnosis Comments DISCHARGE LABORATORY CUMULATIVE REPORT 12/23/2015 SURGICAL PATHOLOGY 12/23/2015 PLASMA PROTHROMBIN TIME (PT) Routine 12/22/2015 11:05 PM CDT PLASMA PARTIAL THROMBOPLASTIN TIME (PTT) Routine 12/22/2015 11:05 PM CDT BLOOD ABO, RH, INDIRECT AB SCREEN Routine 12/22/2015 11:[address] ABDOMEN PELVIS W CONTRAST Routine 12/22/2015 10:07 PM CDT URINE CHORIONIC GONADOTROPIN (HCG) Routine 12/22/2015 9:37 PM CDT SERUM LIPASE Routine 12/22/2015 4:54 PM CDT PLASMA HEPATIC FUNCTION PANEL Routine 12/22/2015 4:54 PM CDT PLASMA BASIC METABOLIC PANEL Routine 12/22/2015 4:54 PM CDT BLOOD CELL COUNT (CBC) Routine 6 4:54 PM CDT BLOOD CELL MORPHOLOGIC EXAM Routine 12/22/2015 4:54 PM CDT URINE CHORIONIC GONADOTROPIN (HCG) Routine 12/22/2015 4:32 PM CDT URINALYSIS Routine 12/22/2015 4:30 PM CDT documented in this encounter Results * Surgical pathology (12/23/2015) Narrative 12/23/2015 Ordered by an unspecified provider. Historical Provider MD LAB PATHOLOGY ORDERABLES Final Result * DISCHARGE LABORATORY CUMULATIVE REPORT (12/23/2015) Narrative 12/23/2015 Ordered by an unspecified provider. Historical Provider MD LAB BLOOD ORDERABLES Sandra l Result * Plasma partial thromboplastin time (PTT) (12/22/2015 11:05 PM CDT) APTT 29.3 25.0 - 37.0 seconds HISTORICAL RESULTS Comment: Interpretive Data Therapeutic heparin range:60.0 - 94.0 sec based on correlation with therapeutic heparin activity range of 0.3 -0.7 Units/mL. Current interpretive data was last revised on 2011. Plasma 12/22/2015 11:0 5 PM CDT Angi Hensley PRIVATE DUTY LPN LAB BLOOD ORDERABLES Final Result HISTORICAL RESULTS * Plasma prothrombin time (PT) (12/22/2015 11:05 PM CDT) Prothrombin time (PT) 12.6 9.2 - 13.0 seconds HISTORICAL RESULTS INR 1.16 0.90 - 1.20 HISTORIC AL RESULTS Comment: Interpretive Data Inpatient therapeutic ranges* Atrial fibrillation ?2.0-3.0 INR Venous thrombo-embolism ?2.0-3.0 INR Bioprosthetic heart valve ?* Mechanical heart valve, bileaflet or tilting disk,aortic position ? 2.0-3.0 INR All other,or bileaflet or tilting disk, in mitral position ? 2.5-3.5 INR *See the pharmacy resource directory (PHRED) for an updated copy of the Tool Book at [email or web address].nsf Current Interpretive Data was last revised 2011. Plasma 12/22/2015 11:0 5 PM CDT Result [facility] Angi Hensley PRIVATE D[employer]Y LPN LAB BLOOD ORDERABLES Final Result HISTORICAL RESULTS * Blood ABO, Rh, indirect ab screen (12/22/2015 11:05 PM CDT) Jorge, indirect Negative HISTORICAL RESULTS ABO, Rho(D) B Positive HISTORI SWETA RESULTS Blood specimen (specimen) 12/22/2015 11:05 PM CDT Result [facility] Angi Hensley [employer] LPN LAB BLOOD ORDERABLES Final Result HISTORICAL RESULTS * CT Abdomen Pelvis W Contrast (12/22/2015 10:07 PM CDT) Anatomical Region Laterality Modality Body N/A Computed Tomogra phy 12/22/2015 10:0 7 PM CDT Narrative 12/23/2015 8:51 AM CDT MANUEL HENDRICKS M.D. LEVY VELA M.D. FINAL REPORT The radiology attending physician has personally reviewed this study, and has reviewed and/or edited this written report and agrees with it. ACC# ??Date Time ??Exam [id number] December 22, 2015 22:07:[id number] Abd & Pelvis with cont EXAMINATION: ?CT OF THE ABDOMEN AND PELVIS with INTRAVENOUS ??CONTRAST HISTORY: ??Right flank pain, history of renal stents and renal stones. Rebound tenderness. TECHNIQUE: Transaxial computed tomographic images of the abdomen and pelvis were obtained following administration of 94 mL Optiray 350 intravenous ??contrast according to standard protocol. ??No immediate complications following contrast administration. FINDINGS: Comparison is made to prior study dated 12/14/2015 There are minimal groundglass opacities in the bilateral lung bases. No focal consolidation. The heart is normal in size without pericardial effusion. The liver enhances in a homogeneously without focal region. The spleen, pancreas and, gallbladder, and adrenal glands are normal. The kidneys enhance symmetrically without focal lesion. No renal or ureteral stones. There has been interval increase in the size of a right adnexal cyst, previously measuring 4.2 by 2.4 cm and now measuring 5.9 by 4.3 cm. The orientation of this cyst has now also changed, with the cyst present more posteriorly and near midline. A small amount of free fluid is present adjacent to the ovary. The large and small bowel is normal in caliber without wall thickening or obstruction. ??The appendix is visualized in its entirety and is normal. The aorta is normal in course and caliber. No abdominal, retroperitoneal or pelvic lymphadenopathy. ??No free intraperitoneal air. ?? No suspicious osseous lytic or blastic lesions. IMPRESSION: ? 1. Interval increase in size and change in position position of right ovarian cyst, which is now located midline with a small amount of surrounding free fluid. These findings can be seen in ovarian torsion. Recommend evaluation by gynecology and further evaluation with ultrasound as clinically warranted. Dr. Vela discussed the above findings with Dr. Major at 10:30 p.m. on 12/22/2015. Requested By: ALICIA MAJOR [facility] Dictated By: ?? LEVY VELA M.D. ??on Dec 22 2015 10:36P This document has been electronically signed by: MANUEL HENDRICKS M.D. on Dec 23 2015 ??8:51A [id number] Procedure Note Provider, MD Margarita - 12/09/2016 MANUEL HENDRICKS M.D. LEVY VELA M.D. FINAL REPORT The radiology attending physician has personally reviewed this study, and has reviewed and/or edited this written report and agrees with it. ACC# Date Time Exam [id number] December 22, 2015 22:07:[address] Abd & Pelvis with cont EXAMINATION: CT OF THE ABDOMEN AND PELVIS with INTRAVENOUS CONTRAST HISTORY: Right flank pain, history of renal stents and renal stones. Rebound tenderness. TECHNIQUE: Transaxial computed tomographic images of the abdomen and pelvis were obtained following administration of 94 mL Optiray 350 intravenous contrast according to standard protocol. No immediate complications following contrast administration. FINDINGS: Comparison is made to prior study dated 12/14/2015 There are minimal groundglass opacities in the bilateral lung bases. No focal consolidation. The heart is normal in size without pericardial effusion. The liver enhances in a homogeneously without focal region. The spleen, pancreas and, gallbladder, and adrenal glands are normal. The kidneys enhance symmetrically without focal lesion. No renal or ureteral stones. There has been interval increase in the size of a right adnexal cyst, previously measuring 4.2 by 2.4 cm and now measuring 5.9 by 4.3 cm. The orientation of this cyst has now also changed, with the cyst present more posteriorly and near midline. A small amount of free fluid is present adjacent to the ovary. The large and small bowel is normal in caliber without wall thickening or obstruction. The appendix is visualized in its entirety and is normal. The aorta is normal in course and caliber. No abdominal, retroperitoneal or pelvic lymphadenopathy. No free intraperitoneal air. No suspicious osseous lytic or blastic lesions. IMPRESSION: 1. Interval increase in size and change in position position of right ovarian cyst, which is now located midline with a small amount of surrounding free fluid. These findings can be seen in ovarian torsion. Recommend evaluation by gynecology and further evaluation with ultrasound as clinically warranted. Dr. Vela discussed the above findings with Dr. Major at 10:30 p.m. on 12/22/2015. Requested By: ALICIA MAJOR [facility] Dictated By: LEVY VELA M.D. on Dec 22 2015 10:36P This document has been electronically signed by: MANUEL HENDRICKS M.D. on Dec 23 2015 8:51A [id number] us Historical Provider IMG CT PROCEDURES Final R esult * Urine chorionic gonadotropin (HCG) (12/22/2015 9:37 PM CDT) HCG, ur Negative HISTORICAL RESULTS Urine 12/22/2015 9:37 PM CDT Alicia Major PR[employer] LPN LAB BLOOD ORDERABL ES Final Result HISTORICAL RESULTS * Plasma hepatic function panel (12/22/2015 4:54 PM CDT) Protein, pl 7.4 6.5 - 8.5 g/dl HISTORICAL RESULTS Alb 4.5 3.5 - 5.0 g/dl HISTORICAL RESULTS Bilirubin 0.2 0.1 - 1.2 mg/dl HISTORICAL RESULTS Bilirubin, direct <0.2 0.1 - 0.3 mg/dl HISTORICAL RESULTS Alk phos 79 40 - 130 Units/L HISTORICAL RESULTS AST 28 10 - 45 Units/L HISTORICAL RESULTS ALT 25 7 - 45 Units/L HISTORICAL RESULTS Plasma 12/22/2015 4:54 PM CDT Casey Benton MD LAB BLOOD ORDERABLES Final Res ult HISTORICAL RESULTS * Plasma basic metabolic panel (12/22/2015 4:54 PM CDT) Pathologist [facility] A. gap 14 2 - 15 mmol/L HISTORICAL RESULTS Sodium 141 135 - 145 mmol/L HISTORICAL RESULTS K, pl 4.3 3.3 - 4.9 mmol/L HISTORICAL RESULTS Chloride 104 97 - 110 mmol/L HISTORICAL RESULTS CO2 23 22 - 32 mmol/L HISTORICAL RESULTS Glucose 81 70 - 199 mg/dl HISTORICAL RESULTS BUN 13 8 - 25 mg/dl HISTORICAL RESULTS Creatinine 0.70 0.60 - 1.10 mg/dl HISTORICAL RESULTS Calcium 9.7 8.5 - 10.3 mg/dl HISTORICAL RESULTS Plasma 12/22/2015 4:54 PM CDT Casey Benton MD LAB BLOOD ORDERABLES Final Res ult Performing Organization Address [facility] de Phone Number HISTORICAL RESULTS * Serum lipase (12/22/2015 4:54 PM CDT) Pathologist [facility] Lip 44 10 - 99 Units/L HISTORICAL RESULTS Serum 12/22/2015 4:54 PM CDT Casey Benton MD LAB BLOOD ORDERABLES Final Res ult Performing Organization Address [facility] de Phone Number HISTORICAL RESULTS * (ABNORMAL) Blood cell count (CBC) (12/22/2015 4:54 PM CDT) [facility] WBC 11.1(H) 3.8 - 9.9 K/cumm HISTORICAL RESULTS RBC 4.35 3.90 - 5.20 M/cumm HISTORICAL RESULTS Hgb 13.4 11.9 - 15.5 g/dl HISTORICAL RESULTS Hct 38.8 35.6 - 45.5 % HISTORICAL RESULTS MCV 89.2 81.3 - 96.4 fl HISTORICAL RESULTS MCH 30.8 27.1 - 33.3 pg HISTORICAL RESULTS MCHC 34.5 32.3 - 35.7 g/dl HISTORICAL RESULTS Rdw 12.6 11.1 - 14.9 % HISTORICAL RESULTS RDW 41.0 35.7 - 48.1 fl HISTORICAL RESULTS Platelets 276 150 - 400 K/cumm HISTORICAL RESULTS MPV 9.9 9.1 - 12.3 fl HISTORICAL RESULTS NRBC 0.0 0.0 - 0.2 % HISTORIC AL RESULTS NRBC, abs 0.00 0.00 - 0.01 K/cumm HISTORICAL RESULTS Blood specimen (specimen) 12/22/2015 4:54 PM CDT Casey Benton MD LAB BLOOD ORDERABLES Final Res ult Performing Organization Address [facility]/ZIP Co de Phone Number HISTORICAL RESULTS * (ABNORMAL) Blood cell morphologic exam (12/22/2015 4:54 PM CDT) Neutrophils 61.6 % HISTORIC AL RESULTS Immature granulocytes 0.4 % HISTORICAL RESULTS Lymphocytes 28.6 % HISTORIC AL RESULTS Monos 7.5 % HISTORICAL RESULTS Eosinophils 1.4 % HISTORIC AL RESULTS Basophils 0.5 % HISTORICAL RESULTS Neutrophils, abs 6.8(H) 1.7 - 6.5 K/cumm HISTORICAL RESULTS Immature granulocyte, abs 0.0 0.0 - 0.1 K/cumm HISTORICAL RESULTS Lymphocytes, abs 3.2 0.8 - 3.3 K/cumm HISTORICAL RESULTS Monocytes, absolute 0.8(H) 0.2 - 0.8 K/cumm HISTORICAL RESULTS Eosinophils, abs 0.2 0.0 - 0.5 K/cumm HISTORICAL RESULTS Basophils, abs 0.0 0.0 - 0.1 K/cumm HISTORICAL RESULTS Blood specimen (specimen) 12/22/2015 4:54 PM CDT Casey Benton MD LAB BLOOD ORDERABLES Final Res ult Performing Organization Address [facility] de Phone Number HISTORICAL RESULTS * Urine chorionic gonadotropin (HCG) (12/22/2015 4:32 PM CDT) HCG, ur Negative HISTORICAL RESULTS Urine 12/22/2015 4:32 PM CDT Casey Benton MD LAB BLOOD ORDERABLES Final Res ult HISTORICAL RESULTS * Urinalysis (12/22/2015 4:30 PM CDT) Color, ur Yellow Yellow HISTORICAL RESULTS Clarity, ur Clear Clear HISTORIC AL RESULTS Specific gravity, ur 1.011 1.003 - 1.030 HISTORICAL RESULTS pH, ur 5.0 5.0 - 8.0 HISTORICAL RESULTS Protein, ur Negative Trace HISTORIC AL RESULTS Glucose, ur Negative Negative HISTORIC AL RESULTS Ketones, ur Negative Negative HISTORIC AL RESULTS Bilirubin, ur Negative Negative HISTOR ICAL RESULTS U Blood Negative Negative HISTORICAL RESULTS Urobilinogen, quant, ur <2.0 <2.0 mg/dl HISTORICAL RESULTS Nitrites, ur Negative Negative HISTORI SWETA RESULTS Leukocyte esterase, ur Negative Negative HISTORICAL RESULTS Urine 12/22/2015 4:30 PM CDT us Casey Benton MD LAB BLOOD ORDERABLES Final Res ult HISTORICAL RESULTS documented in this encounter Visit Diagnoses Diagnosis Other ovarian cyst Elevated white blood cell count Leukocytosis, unspecified Essential (primary) hypertension Unspecified essential hypertension Gastro-esophageal reflux disease without esophagitis Irritable bowel syndrome without diarrhea Cigarette nicotine dependence, uncomplicated Other halfway (current) 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 Family history of ischemic heart disease and other diseases of the circulatory system documented in this encounter
--- OUTSIDE RECORDS SUMMARY | 2024-08-17 01:56 | XMS_ITS | Encounter Summary ---
Author Organization [facility] Facility Care Team Providers Care Machine Taper Name Role Phone Unavailable Primary Care Provider Unavailabl e Encounter Details Date Type Department Care Team (Late st Contact Info) Description 01/13/2016 - 01/13/2016 11:59 PM CDT Hospital Encounter [facility] Natalee Montes MD [address] [facility] [phone] [place] [address] Pelvic and perineal pain; Abdominal pain Social History Tobacco Use Types Packs/Day Years Used Date Smoking Tobacco: Never Assessed Comments Unknown Sex and Gender Information Value Date Recorded Sex Assigned at Not on file Legal Sex Female 9:06 PM 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 Gender Identity Female 10/01/2023 8:44 AM 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 Sexual Orientation Straight 10/01/2023 8: 44 AM 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 documented as of this encounter Plan of Treatment Not on file documented as of this encounter Procedures Procedure Name Priority Date/Time Associated Diagnosis Comments PLASMA COMPREHENSIVE METABOLIC PANEL Routine 01/13/2016 9:36 AM CDT BLOOD CELL COUNT (CBC) Routine 6 9:36 AM CDT BLOOD CELL MORPHOLOGIC EXAM Routine 01/13/2016 9:36 AM CDT DISCHARGE LABORATORY CUMULATIVE REPORT 01/13/2016 documented in this encounter Results * Plasma comprehensive metabolic panel (01/13/2016 9:36 AM CDT) Sodium 141 135 - 145 mmol/L HISTORICAL RESULTS K, pl 4.4 3.3 - 4.9 mmol/L HISTORICAL RESULTS Chloride 107 97 - 110 mmol/L HISTORICAL RESULTS CO2 24 22 - 32 mmol/L HISTORICAL RESULTS A. gap 10 2 - 15 mmol/L HISTORICAL RESULTS Glucose 77 70 - 199 mg/dl HISTORICAL RESULTS BUN 10 8 - 25 mg/dl HISTORICAL RESULTS Creatinine 0.71 0.60 - 1.10 mg/dl HISTORICAL RESULTS Calcium 9.9 8.5 - 10.3 mg/dl HISTORICAL RESULTS Protein, pl 7.9 6.5 - 8.5 g/dl HISTORICAL RESULTS Alb 4.7 3.5 - 5.0 g/dl HISTORICAL RESULTS Bilirubin 0.7 0.1 - 1.2 mg/dl HISTORICAL RESULTS Alk phos 78 40 - 130 Units/L HISTORICAL RESULTS AST 21 10 - 45 Units/L HISTORICAL RESULTS ALT 23 7 - 45 Units/L HISTORICAL RESULTS Plasma 01/13/2016 9:36 AM CDT Natalee Pedersen MD LAB BLOOD ORDERABLES Final Re sult HISTORICAL RESULTS * (ABNORMAL) Blood cell count (CBC) (01/13/2016 9:36 AM CDT) Pathologist [facility] WBC 12.0(H) 3.8 - 9.9 K/cumm HISTORICAL RESULTS Platelets 274 150 - 400 K/cumm HISTORICAL RESULTS RBC 4.83 3.90 - 5.20 M/cumm HISTORICAL RESULTS MPV 10.1 9.1 - 12.3 fl HISTORICAL RESULTS Hgb 14.8 11.9 - 15.5 g/dl HISTORICAL RESULTS NRBC 0.0 0.0 - 0.2 % HISTORIC AL RESULTS Hct 42.0 35.6 - 45.5 % HISTORICAL RESULTS NRBC, abs 0.00 0.00 - 0.01 K/cumm HISTORICAL RESULTS MCV 87.0 81.3 - 96.4 fl HISTORICAL RESULTS MCH 30.6 27.1 - 33.3 pg HISTORICAL RESULTS MCHC 35.2 32.3 - 35.7 g/dl HISTORICAL RESULTS Rdw 12.1 11.1 - 14.9 % HISTORICAL RESULTS RDW 38.9 35.7 - 48.1 fl HISTORICAL RESULTS Blood specimen (specimen) 01/13/2016 9:36 AM CDT Natalee Pedersen MD LAB BLOOD ORDERABLES Final Re sult HISTORICAL RESULTS * (ABNORMAL) Blood cell morphologic exam (01/13/2016 9:36 AM CDT) Neutrophils 73.7 % HISTORIC AL RESULTS Immature granulocytes 0.4 % HISTORICAL RESULTS Lymphocytes 17.2 % HISTORIC AL RESULTS Monos 7.6 % HISTORICAL RESULTS Eosinophils 0.8 % HISTORIC AL RESULTS Basophils 0.3 % HISTORICAL RESULTS Neutrophils, abs 8.8(H) 1.7 - 6.5 K/cumm HISTORICAL RESULTS Immature granulocyte, abs 0.0 0.0 - 0.1 K/cumm HISTORICAL RESULTS Lymphocytes, abs 2.1 0.8 - 3.3 K/cumm HISTORICAL RESULTS Monocytes, absolute 0.9(H) 0.2 - 0.8 K/cumm HISTORICAL RESULTS Eosinophils, abs 0.1 0.0 - 0.5 K/cumm HISTORICAL RESULTS Basophils, abs 0.0 0.0 - 0.1 K/cumm HISTORICAL RESULTS Blood specimen (specimen) 01/13/2016 9:36 AM CDT Natalee Pedersen MD LAB BLOOD ORDERABLES Final Re sult HISTORICAL RESULTS * DISCHARGE LABORATORY CUMULATIVE REPORT (01/13/2016) Narrative 01/13/2016 Ordered by an unspecified provider. Historical Provider LAB BLOOD ORDERABLES Sandra l Result documented in this encounter Visit Diagnoses Diagnosis Pelvic and perineal pain Abdominal pain Abdominal pain, unspecified site documented in this encounter
--- OUTSIDE RECORDS SUMMARY | 2024-08-17 01:56 | XMS_ITS | Encounter Summary ---
Author Organization [facility] Facility Care Team Providers Care Auto Body Man Name Role Phone Unavailable Primary Care Provider Unavailabl e Encounter Details Date Type Department Care Team (Latest Contact Info) Description 01/24/2016 7:46 AM CDT - 01/25/2016 11:51 AM CDT Hospital Encounter [facility] Natalee Montes MD [address] [facility] [phone] [place], [place] [id number] Pelvic and perineal pain; Abnormal uterine and vaginal bleeding, unspecified; Essential (primary) hypertension; Nicotine dependence, uncomplicated Social History Tobacco Use Types Packs/Day Years Used Date Smoking Tobacco: Never Assessed Comments Unknown Sex and Gender Information Value Date Recorded Sex Assigned at Not on file Legal Sex 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 Gender Identity Female 10/01/2023 8:44 AM MATERIALS ASSISTANT Sexual Orientation Straight 10/01/2023 8: 44 AM MATERIALS ASSISTANT documented as of this encounter Last Filed Vital Signs Vital Sign Reading Time Taken Comments Blood Pressure 110/66 01/25/2016 8:01 AM CDT Pulse 61 01/25/2016 8:01 AM CDT Temperature - - Respiratory Rate - - Oxygen Saturation 99% 01/25/2016 8:01 AM CDT Inhaled Oxygen Concentration - - Weight 74.8 kg (164 lb 15.9 oz) 01/24/2016 4:19 PM CDT Height 160 cm (5' 3 ) 01/24/2016 4:19 PM CDT Body Mass Index 29.23 01/24/2016 4:19 PM CDT documented in this encounter Miscellaneous Notes * Op Note - Provider, MD Margarita - 01/24/2016 12:00 AM CDT Patient: TITA LUKE Reg No: [id number] [facility] #: [id number] Admit Dt.: 01/24/2016 : 1980 Pt Type: [facility] Room No: 99896-17 Attending: Natalee Pedersen M.D. Surgeon: Natalee Pedersen M.D. Dictating: Kaylee Diggs M.D. Service Dt: 01/24/2016 OPERATIVE REPORT FACILITY: [facility] CHUCKER: Kaylee Diggs M.D. ANESTHESIA: General endotracheal anesthesia. PREOPERATIVE DIAGNOSIS (ES): 1. Pelvic pain. 2. Abnormal uterine bleeding. POSTOPERATIVE DIAGNOSIS (ES): 1. Pelvic pain. 2. Abnormal uterine bleeding. NAME OF OPERATION: 1. Examination under anesthesia. 2. Total laparoscopic hysterectomy. 3. Cystoscopy. INDICATIONS FOR PROCEDURE: The patient is a 35-year-old 3, para 3, 0-0-3 with a history of three prior sections, status post endometrial ablation, who originally presented to the emergency department with right lower quadrant pain in December 2015. She was diagnosed with likely right ovarian torsion in the setting of a 6 cm right adnexal cyst and underwent laparoscopic right salpingo-oophorectomy. At her postoperative visit, she complained of persistent pelvic pain and significant tenderness of her uterus was noted on physical examination. She underwent formal ultrasound which revealed two myometrial foci of possible adenomyosis, but otherwise normal uterus and normal left ovary. Given a mildly elevated white blood cell count, she was treated empirically for possible pelvic inflammatory disease and postoperative endomyometritis with ceftriaxone, Flagyl, and doxycycline. This treatment resulted in minimal improvement in her pain, and after counseling on the risks, benefits, and alternatives of further surgery, she opted for further surgical management with total laparoscopic hysterectomy. The risks were discussed preoperatively, including bleeding, infection, and damage to surrounding structures, including bowel, bladder, and blood vessels. After reviewing these risks, the patient decided to proceed with surgery and consents were signed following preoperative counseling. OPERATIVE FINDINGS: On examination under anesthesia, normal size uterus with normal left adnexa. Operative findings - normal uterus and normal left fallopian tube and left ovary with evidence of previous left tubal ligation. Absent right tube and ovary consistent with patient's known history of right salpingo-oophorectomy. Small amount of filmy adhesions noted between the omentum and the anterior abdominal wall. Minimal adhesive disease between the bladder and lower uterine segment. Uterine manipulator placement complicated by uterine perforation in the anterior lower uterine segment, without injury to surrounding structures. DESCRIPTION OF PROCEDURE: After confirming appropriate operative consents, the patient was taken to the operating room where general anesthesia was obtained without difficulty and found to be adequate. She was positioned in the dorsal lithotomy position in [facility] and examined under anesthesia with the above findings. She was then prepped and draped in the normal sterile fashion after placing sequential compression devices for deep venous thrombosis prophylaxis. A Jarrett catheter was placed. A bivalve speculum was then placed in the patient's vagina and a single-tooth tenaculum placed on the anterior lip of the cervix. The cervix was serially dilated and a VCare uterine manipulator was placed and the balloon inflated. The single-tooth tenaculum and bivalve speculum were then removed. The patient received 2 grams of Ancef prior to skin incision. Attention was then turned to the patient's abdomen where 5 mL of 0.25% Marcaine was infiltrated into the inferior aspect of the umbilical fold. A 5 mm incision was made with a scalpel. The anterior abdominal wall was tented up and a 5 mm trocar was inserted into this infraumbilical incision using an optical trocar insertion technique. A pneumoperitoneum was obtained. After placement in steep Trendelenburg positioning, the above findings were noted. At this point, a uterine perforation at the anterior lower uterine segment with the uterine manipulator was noted. The manipulator balloon was therefore deflated and the manipulator removed. The speculum and what was replaced on the tenaculum placed on the posterior lip of the cervix to allow proper replacement of the uterine manipulator under direct visualization. Attention was then returned to the abdomen where additional 5 mm skin incisions were made in the right and left lower quadrants, approximately 10 cm from the midline, assisted between the anterior/superior iliac spine and the umbilicus. Two 5 mm trocars were then placed under direct visualization. The laparoscope was replaced in the lateral trocar to visualize the umbilical trocar which was found to be normal. At this time, the harmonic Forrest was used to coagulate and cut a small amount of filmy adhesions of the omentum to the anterior abdominal wall, with adequate hemostasis noted. The harmonic Forrest was used to coagulate and cut the round ligament on the left. The anterior and posterior leaflets of the broad were opened and the bladder flap was created. Continued slow bleeding was noted in the left mesosalpinx underlying the site of dissection of the round ligament which was controlled with further coagulation using the harmonic Forrest. The left uteroovarian ligament was then coagulated and cut and this dissection carried down to the level of the posterior leaf of the broad ligament. At this time, hemostasis was noted to be adequate, and attention was turned to the right round ligament which, in a similar fashion, was coagulated and cut. The anterior and posterior leaflets of the broad ligament were opened and the bladder flap was continued anteriorly. The posterior leaf of the broad was further taken down and the right uterine artery skeletonized, allowing the uterine artery to be coagulated and cut just above the level of the cup on the right. The exact same procedure was then repeated on the left after further skeletonization of the left uterine artery. The uterus was then inspected and noted to be devascularized. Dissection of the bladder flap was continued anteriorly until the pubovesicocervical fascia was exposed and the uterine pedicles were dropped down past the level of the cervical cup bilaterally. A colpotomy was then performed using the harmonic Forrest. The uterus and cervix were then pulled through the vagina. An Asepto bulb was placed in the vagina with an 0 V-Lock 180 suture to maintain the pneumoperitoneum. The vaginal cuff was then closed using 0 V-Lock 180 suture in a running fashion, with incorporation of bilateral uterosacral ligaments. Hemostasis was noted to be excellent. Cystoscopy was then performed, and bilateral ureteral jets were noted with no evidence of incidental cystotomy or suture noted in the bladder. A final survey of the abdomen and pelvis revealed excellent hemostasis after the intraabdominal pressure was dropped to 5 mmHg. The trocars were then removed after allowing all intraperitoneal gas to fully escape. The incisions were closed with 4-0 Monocryl and Band-Aids were applied. SPECIMENS REMOVED: Uterus and cervix. ESTIMATED BLOOD LOSS: 150 mL. INTRAOPERATIVE FLUIDS: 1,600 mL of crystalloid. URINE OUTPUT: 195 mL clear urine at the end of the procedure. SPONGE/INSTRUMENT/NEEDLE COUNTS: Sponge, instrument, and needle counts were correct x three. COMPLICATIONS: None. PRESENT STATEMENT: The attending, Dr. Natalee Pedersen, was present for the entire procedure. Electronically Authenticated by: Natalee Pedersen MD On 01/27/2016 06:15 AM CDT Kaylee Diggs M.D. Jillian Rutherford:francisco #[id number] Editing MT: TD: 01/26/2016 07:25 AM documented in this encounter Plan of Treatment Not on file documented as of this encounter Procedures Procedure Name Priority Date/Time Associated Diagnosis Comments DISCHARGE LABORATORY CUMULATIVE REPORT 01/25/2016 PLASMA BASIC METABOLIC PANEL Routine 01/24/2016 9:45 PM CDT BLOOD CELL COUNT Routine 01/24/2016 9:45 PM CDT URINE CHORIONIC GONADOTROPIN (HCG) Routine 01/24/2016 8:28 AM CDT BLOOD ABO, RH, INDIRECT AB SCREEN Routine 01/24/2016 7:12 AM CDT SURGICAL PATHOLOGY 01/24/2016 documented in this encounter Results * DISCHARGE LABORATORY CUMULATIVE REPORT (01/25/2016) Narrative 01/25/2016 Ordered by an unspecified provider. us Historical Provider LAB BLOOD ORDERABLES Sandra l Result * Plasma basic metabolic panel (01/24/2016 9:45 PM CDT) Sodium 137 135 - 145 mmol/L HISTORICAL RESULTS K, pl 4.4 3.3 - 4.9 mmol/L HISTORICAL RESULTS Chloride 103 97 - 110 mmol/L HISTORICAL RESULTS CO2 23 22 - 32 mmol/L HISTORICAL RESULTS A. gap 11 2 - 15 mmol/L HISTORICAL RESULTS Glucose 117 70 - 199 mg/dl HISTORICAL RESULTS BUN 10 8 - 25 mg/dl HISTORICAL RESULTS Creatinine 0.64 0.60 - 1.10 mg/dl HISTORICAL RESULTS Calcium 8.9 8.5 - 10.3 mg/dl HISTORICAL RESULTS Plasma 01/24/2016 9:45 PM CDT Kaylee Diggs MD LAB BLOOD ORDERABLES Final Result HISTORICAL RESULTS * (ABNORMAL) Blood cell count [CBC] express (01/24/2016 9:45 PM CDT) WBC 13.0(H) 3.8 - 9.9 K/cumm HISTORICAL RESULTS RBC 4.01 3.90 - 5.20 M/cumm HISTORICAL RESULTS Hgb 12.4 11.9 - 15.5 g/dl HISTORICAL RESULTS Hct 35.2(L) 35.6 - 45.5 % HISTORICAL RESULTS MCV 87.8 81.3 - 96.4 fl HISTORICAL RESULTS MCH 30.9 27.1 - 33.3 pg HISTORICAL RESULTS MCHC 35.2 32.3 - 35.7 g/dl HISTORICAL RESULTS Rdw 11.9 11.1 - 14.9 % HISTORICAL RESULTS RDW 38.6 35.7 - 48.1 fl HISTORICAL RESULTS NRBC 0.0 0.0 - 0.2 % HISTORIC AL RESULTS NRBC, abs 0.00 0.00 - 0.01 K/cumm HISTORICAL RESULTS Platelets 239 150 - 400 K/cumm HISTORICAL RESULTS MPV 10.0 9.1 - 12.3 fl HISTORICAL RESULTS Blood specimen (specimen) 01/24/2016 9:45 PM CDT Kaylee Diggs MD LAB BLOOD ORDERABLES Final Result HISTORICAL RESULTS * Urine chorionic gonadotropin (HCG) (01/24/2016 8:28 AM CDT) HCG, ur Negative HISTORICAL RESULTS Urine 01/24/2016 8:28 AM CDT Natalee Pedersen MD LAB BLOOD ORDERABLES Final Re sult HISTORICAL RESULTS * Blood ABO, Rh, indirect ab screen (01/24/2016 7:12 AM CDT) Jorge, indirect Negative HISTORICAL RESULTS ABO, Rho(D) B Positive HISTORI SWETA RESULTS Blood specimen (specimen) 01/24/2016 7:12 AM CDT Natalee Pedersen MD LAB BLOOD ORDERABLES Final Re sult Performing Organization Address [facility] Co de Phone Number HISTORICAL RESULTS * Surgical pathology (01/24/2016) Narrative 01/24/2016 Ordered by an unspecified provider. Historical Provider LAB PATHOLOGY ORDERABLES Final Result documented in this encounter Visit Diagnoses Diagnosis Pelvic and perineal pain Abnormal uterine and vaginal bleeding, unspecified Essential (primary) hypertension Unspecified essential hypertension Nicotine dependence, uncomplicated documented in this encounter
--- OUTSIDE RECORDS SUMMARY | 2024-08-17 01:56 | XMS_ITS | Encounter Summary ---
Author Organization [facility] Facility Care Team Providers Care Florist'S Decorator Name Role Phone Unavailable Primary Care Provider Unavailabl e Encounter Details Date Type Department Care Team (Latest Contact Info) Description 02/16/2014 9:51 AM CDT - 02/16/2014 2:29 PM CDT Hospital Encounter [facility] Brice Carroll MD [address] [facility] [address] [place] [address] Coxsackievirus infection; Gastritis and gastroduodenitis; Duodenitis; Tobacco use disorder; Encounter for long-term (current) use of other medications; Family history of other cardiovascular diseases Social History Tobacco Use Types Packs/Day Years Used Date Smoking Tobacco: Never Assessed Comments Unknown Sex and Gender Information Value Date Recorded Sex Assigned at Not on file 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 Gender Identity Female 10/01/2023 8:44 AM FIRESTOPPER TECHNICIAN Sexual Orientation Straight 10/01/2023 8: 44 AM FIRESTOPPER TECHNICIAN documented as of this encounter Plan of Treatment Not on file documented as of this encounter Procedures Procedure Name Priority Date/Time Associated Diagnosis Comments URINE CHORIONIC GONADOTROPIN (HCG) Routine 02/16/2014 1:07 PM CDT BLOOD CREATININE, POINT OF CARE Routine 02/16/2014 11:12 AM CDT URINALYSIS Routine 02/16/2014 11:12 AM CDT BLOOD GLUCOSE, POC Routine 02/16/2014 11 :06 AM CDT DISCHARGE LABORATORY CUMULATIVE REPORT Routine 02/16/2014 12:00 AM CDT documented in this encounter Results * Urine chorionic gonadotropin (HCG) (02/16/2014 1:07 PM CDT) HCG, ur Negative HISTORICAL RESULTS Urine 02/16/2014 1:07 PM CDT Brice Oconnell MD LAB BLOOD ORDERABLES Final Result Performing Organization Address [facility] de Phone Number HISTORICAL RESULTS * Blood creatinine, point of care (02/16/2014 11:12 AM CDT) Pathologist [facility] Creatinine, POC, bld 0.7 0.6 - 1.1 mg/dl HISTORICAL RESULTS Blood specimen (specimen) 02/16/2014 11:12 AM CDT Historical Provider LAB BLOOD ORDERABLES Sandra l Result Performing Organization Address [facility] de Phone Number HISTORICAL RESULTS * (ABNORMAL) Urinalysis (02/16/2014 11:12 AM CDT) Color, ur Yellow Yellow HISTORICAL RESULTS Clarity, ur Cloudy(A) Clear HISTORIC AL RESULTS Specific gravity, ur 1.019 1.003 - 1.030 HISTORICAL RESULTS pH, ur 5.0 5.0 - 8.0 HISTORICAL RESULTS Protein, ur Negative Trace HISTORIC AL RESULTS Glucose, ur Negative Negative HISTORIC AL RESULTS Ketones, ur Negative Negative HISTORIC AL RESULTS Bilirubin, ur Negative Negative HISTOR ICAL RESULTS U Blood Negative Negative HISTORICAL RESULTS Urobilinogen, quant, ur <2.0 0.0 - 2.0 mg/dl HISTORICAL RESULTS Nitrites, ur Negative Negative HISTORI SWETA RESULTS Leukocyte esterase, ur Negative Negative HISTORICAL RESULTS Urine 02/16/2014 11:1 2 AM CDT Brice Oconnell MD LAB BLOOD ORDERABLES Final Result Performing Organization Address [facility] Co de Phone Number HISTORICAL RESULTS * Blood glucose, POC (02/16/2014 11:06 AM CDT) Glucose, POC, bld 131 70 - 199 mg/dl HISTORICAL RESULTS Blood specimen (specimen) 02/16/2014 11:06 AM CDT us Historical Provider MD LAB BLOOD ORDERABLES Sandra l Result HISTORICAL RESULTS * Discharge Laboratory Cumulative Report (02/16/2014 12:00 AM CDT) 02/16/2014 Narrative HISTORICAL RESULTS - 02/17/2014 11:17 AM CDT ?[facility] ?Department of Laboratories ? [address] [facility] [address] ? [place] [address] Patient Name: ??TITA LUKE Med Rec Number: [id number] Fin Number: ?[id number] Date: ?1980 Sex/Age: ? Female 33 years Admit Date: ?02/16/2014 Discharge Date: 02/16/2014 Doctor: ?Brice Oconnell Facility: ?[facility] Location: ?EM-27 Chart Printed: 02/17/2014 11:17 ?? * Abnormal ?? C Critical ?? f Footnote ?? ^ Corrected ?? L Low ?? H High ? i Interp Data ?? @ Reference Lab ?Chart Type:Cumulative ?URINE HORMONES ?Test: hCG Ur Qual ? Reference: ? Units: 02/16/2014 ?? 13:07:00 ?? Negative ?URINALYSIS ?Macroscopic ?Test: Color ? Clarity ?Specific [place] ? Reference: [Yellow] ??[Clear] ?[1.003-1.030] ? Units: 02/16/2014 ?? 11:12:17 ?? Yellow ?Cloudy ??* ??1.019 ?Test: pH ? Albumin ?? Glucose ? Ketones ? Reference: [5.0-8.0] ??[Trace] ?? [Negative] ??[Negative] ? Units: 02/16/2014 ?? 11:12:17 ?? 5.0 ?Negative ??Negative ?Negative ?Test: Bilirubin ?? Blood ? Urobilinogen ? Reference: [Negative] ??[Negative] ??[0.0-2.0] ? Units: ? mg/dL 02/16/2014 ?? 11:12:17 ?? Negative ?Negative ?<2.0 ?Test: Nitrite ? Leuk Esterase ? Reference: [Negative] ??[Negative] ? Units: 02/16/2014 ?? 11:12:17 ?? Negative ?Negative ?POINT OF CARE TESTS ? Chemistry ?Test: Creat iPOC ??Glucose POC ? Reference: [0.6-1.1] ?? [70-199] ? Units: mg/dL ? mg/dL 02/16/2014 ?? 11:12:00 ?? 0.7 02/16/2014 ?? 11:06:00 ? 131 us Historical Provider LAB BLOOD ORDERABLES Sandra clifton Result HISTORICAL RESULTS documented in this encounter Visit Diagnoses Diagnosis Coxsackievirus infection Coxsackievirus infection in conditions classified elsewhere and of unspecified site Gastritis and gastroduodenitis Unspecified gastritis and gastroduodenitis without mention of hemorrhage Duodenitis Tobacco use disorder Encounter for long-term (current) use of other medications Family history of other cardiovascular diseases documented in this encounter
--- OUTSIDE RECORDS SUMMARY | 2024-08-17 01:56 | XMS_ITS | Encounter Summary ---
Author Organization [facility] Healthcare Address [address] [place] [address] Care Team Providers Care Dump Worker Name Role Phone Unavailable Primary Care Provider Unavailabl e Encounter Details Date Type Department Care Team (Late st Contact Info) Description 12/14/2015 6:09 PM CDT - 12/14/2015 10:06 PM CDT Hospital Encounter [facility] Jb Barton MD [address] [id number] Ovarian cyst; Encounter for test with result negative Social History Tobacco Use Types Packs/Day Years Used Date Smoking Tobacco: Never Assessed Comments Unknown Sex and Gender Information Value Date Recorded Sex Assigned at Not on file Legal Sex Female 9:06 PM COAL SHOVELER Gender Identity Female 10/01/2023 8:44 AM COAL SHOVELER Sexual Orientation Straight 10/01/2023 8: 44 AM COAL SHOVELER documented as of this encounter Plan of Treatment Not on file documented as of this encounter Procedures Procedure Name Priority Date/Time Associated Diagnosis Comments CT ABDOMEN PELVIS W CONTRAST Routine 12/14/2015 9:17 PM CDT SERUM LIPASE Routine 12/14/2015 7:08 PM CDT SERUM ESTIMATED GLOMERULAR FILTRATION RATE Routine 12/14/2015 7:08 PM CDT SERUM AMYLASE Routine 12/14/2015 7:08 PM CDT PLASMA COMPREHENSIVE METABOLIC PANEL Routine 12/14/2015 7:08 PM CDT BLOOD CELL COUNT (CBC), MORPHOLOGIC EXAM Routine 12/14/2015 7:08 PM CDT BLOOD CELL MORPHOLOGIC EXAM Routine 12/14/2015 7:08 PM CDT URINE CHORIONIC GONADOTROPIN (HCG) Routine 12/14/2015 6:45 PM CDT URINALYSIS Routine 12/14/2015 6:45 PM CDT DISCHARGE LABORATORY CUMULATIVE REPORT 12/14/2015 documented in this encounter Results * CT Abdomen Pelvis W Contrast (12/14/2015 9:17 PM CDT) Anatomical Region Laterality Modality Body N/A Computed Tomogra phy 12/14/2015 9:17 PM CDT Narrative 12/15/2015 11:[address] ABD/PEL W IV ONLY ??Acc#: ??[id number] DATE OF EXAM: ??December ??2015 CLINICAL HISTORY: Right lower quadrant and right flank pain. Normal white blood cell count. RESULT: Post IV contrast (100 mL Optiray 320), spiral axial scans were obtained from lung bases to ischial tuberosities. Axial as well as coronal and sagittal reformatted images were reviewed. Comparison was made to CT KUB stone on 26 April 2015. Partially visualized lung bases are clear. Liver, contracted gallbladder, bile ducts, pancreas, spleen, adrenal glands, kidneys, ureters and urinary bladder appear normal. Uterus and left ovary are normal. A 3 cm thin-walled cyst is present in the right ovary, a new finding since previous exam. A single phlebolith is present in the lower pelvis on the left and a tiny one even lower in the right side of the pelvis. These are old. The appendix is normal. No dilated or thickened loops of bowel are evident. There is no lymphadenopathy or ascites. Abdominal aorta and inferior vena cava are normal. Abdominal and pelvic wall structures are intact. IMPRESSION: 1. ??A 3 CM RIGHT OVARIAN CYST. 2. ??NO OTHER SIGNIFICANT ABDOMINAL OR PELVIC FINDINGS. REPORT CALLED TO NURSE PRACTITIONER, MEKHI IVERSON [facility] ON 14 DEC 2015 AT 2135 HOURS. Interpreting Physician: ??DR ALMITA DA SILVA M.D. ??Read on: ??May ??2015 9:40P Transcribed by: ??TXD ??On: May ??5 2016 ??8:42A Approved Electronically by: ??AVINASH Walsh, DR RECIO ??on: ??May ??2015 11:22A Attending: ??JB FARR Requesting: ??MEKHI IVERSON Requesting Fax: ??-- Attending Fax: ??-- Attending ID: ??[id number] Requesting ID: ??[id number] Report To 1 ID: ??[id number] Report To 1 Name: ??JB FARR Report To 1 FAX: ??-- NextGen Order #: Procedure Note Provider, MD Margarita - 12/09/2016 CT ABD/PEL W IV ONLY Acc#: [id number] DATE OF EXAM: Dec 14 2015 CLINICAL HISTORY: Right lower quadrant and right flank pain. Normal white blood cellcount. RESULT: Post IV contrast (100 mL Optiray 320), spiral axial scans were obtainedfrom lung bases to ischial tuberosities. Axial as well as coronal andsagittal reformatted images were reviewed. Comparison was made to CT KUBstone on 26 April 2015. Partially visualized lung bases are clear.Liver, contracted gallbladder, bile ducts, pancreas, spleen, adrenalglands, kidneys, ureters and urinary bladder appear normal. Uterus andleft ovary are normal. A 3 cm thin-walled cyst is present in the rightovary, a new finding since previous exam. A single phlebolith is presentin the lower pelvis on the left and a tiny one even lower in the rightside of the pelvis. These are old. The appendix is normal. No dilated orthickened loops of bowel are evident. There is no lymphadenopathy orascites. Abdominal aorta and inferior vena cava are normal. Abdominal andpelvic wall structures are intact. IMPRESSION: 1. A 3 CM RIGHT OVARIAN CYST. 2. NO OTHER SIGNIFICANT ABDOMINAL OR PELVIC FINDINGS. REPORT CALLED [facility] MEKHI MARQUIS IN [facility] ON 14 DEC 2015 AT 2135HOURS. Interpreting Physician: DR ALMITA DA SILVA M.D. Read on: Dec 14 20159:[id number] Transcribed by: TXD On: Dec 15 2015 8:42A Approved Electronically by: DR ALMITA DA SILVA M.D. on: Dec 15 201511:22A Attending: JB FARR Requesting: MEKHI IVERSON Requesting Fax: -- Attending Fax: -- Attending ID: [id number] Requesting ID: [id number] Report To 1 ID: [id number] Report To 1 Name: JB FARR Report To 1 FAX: -- NextGen Order #: Historical Provider MD HOLDEN CT PROCEDURES Final R esult * Serum lipase (12/14/2015 7:08 PM CDT) Pathologist [facility] Lip 41 10 - 70 Units/L HISTORICAL RESULTS Serum 12/14/2015 7:08 PM CDT Result [facility] SECONDARY ART TEACHER LAB BLOOD ORDERABLES Fi nal Result Performing Organization Address [facility] [[email or web address]] de Phone Number HISTORICAL RESULTS * Serum amylase (12/14/2015 7:08 PM CDT) [place], pl 77 30 - 100 Units/L HISTORICAL RESULTS Serum 12/14/2015 7:08 PM CDT Result [facility] SECONDARY ART TEACHER LAB BLOOD ORDERABLES Fi nal Result Performing Organization Address [facility] [[email or web address]] de Phone Number HISTORICAL RESULTS * (ABNORMAL) Plasma comprehensive metabolic panel (12/14/2015 7:08 PM CDT) Pathologist [facility] Sodium 141 135 - 145 mmol/L HISTORICAL RESULTS K, pl 4.1 3.5 - 5.1 mmol/L HISTORICAL RESULTS Chloride 102 97 - 110 mmol/L HISTORICAL RESULTS CO2 25 22 - 32 mmol/L HISTORICAL RESULTS A. gap 18(H) 8 - 16 mmol/L HISTORICAL RESULTS Glucose 88 70 - 199 mg/dl HISTORICAL RESULTS Comment: Interpretive Data Note:The glucose is assumed non fasting Fastin-99 mg/dL Random: ??70-199 mg/dL Either a fasting glucose > 126 mg/dL or a random glucose > 200 mg/dL plus symptoms is diagnostic of diabetes when confirmed on another day. Fasting values > 100 mg/dL but < 125 mg/dL are diagnostic of impaired fasting glucose. Current interpretive data was last revised on 2014. BUN 13.5 8.0 - 25.0 mg/dl HISTORICAL RESULTS Creatinine 0.70 0.60 - 1.10 mg/dl HISTORICAL RESULTS BUN/creat ratio 19 10 - 20 HIST ORICAL RESULTS Calcium 9.7 8.6 - 10.2 mg/dl HISTORICAL RESULTS Protein, sr 7.1 6.0 - 8.4 g/dl HISTORICAL RESULTS Alb 4.3 3.6 - 5.0 g/dl HISTORICAL RESULTS Alb/glob ratio 1.5 1.1 - 1.8 ratio HISTORICAL RESULTS Alk phos 79 40 - 130 Units/L HISTORICAL RESULTS ALT 23 5 - 45 Units/L HISTORICAL RESULTS AST 19 10 - 40 Units/L HISTORICAL RESULTS Bilirubin <0.2 <=1.2 mg/dl HISTORICAL RESULTS Plasma 12/14/2015 7:08 PM CDT us Historical Provider LAB BLOOD ORDERABLES Sandra l Result HISTORICAL RESULTS * Blood cell morphologic exam (12/14/2015 7:08 PM CDT) Neutrophils 56.9 44.0 - 80.0 % HISTORICAL RESULTS Immature granulocytes 0.3 0.0 - 1.0 % HISTORICAL RESULTS Lymphocytes 32.2 13.0 - 44.0 % HISTORICAL RESULTS Monos 8.5 2.0 - 11.0 % HISTORICAL RESULTS Eosinophils 1.7 0.0 - 6.0 % HISTORICAL RESULTS Basophils 0.4 0.0 - 3.0 % HISTORICAL RESULTS Neutrophils, abs 5.1 1.6 - 7.0 K/cumm HISTORICAL RESULTS Immature granulocyte, abs 0.0 0.0 - 0.2 K/cumm HISTORICAL RESULTS Lymphocytes, abs 2.9 0.5 - 4.3 K/cumm HISTORICAL RESULTS Monocytes, absolute 0.8 0.1 - 1.0 K/cumm HISTORICAL RESULTS Eosinophils, abs 0.2 0.0 - 0.6 K/cumm HISTORICAL RESULTS Basophils, abs 0.0 0.0 - 0.3 K/cumm HISTORICAL RESULTS Blood specimen (specimen) 12/14/2015 7:08 PM CDT Historical Provider LAB BLOOD ORDERABLES Sandra l Result HISTORICAL RESULTS * Blood cell count (CBC), morphologic exam (12/14/2015 7:08 PM CDT) Pathologist [facility] WBC 9.0 3.8 - 9.8 K/cumm HISTORICAL RESULTS RBC 4.15 3.90 - 5.00 M/cumm HISTORICAL RESULTS Hgb 12.8 12.1 - 15.1 g/dl HISTORICAL RESULTS Hct 37.0 36.1 - 44.3 % HISTORICAL RESULTS MCV 89.2 80.0 - 100.0 fl HISTORICAL RESULTS MCH 30.8 26.7 - 33.7 pg HISTORICAL RESULTS MCHC 34.6 32.7 - 36.0 g/dl HISTORICAL RESULTS Rdw 12.3 11.5 - 14.6 % HISTORICAL RESULTS Platelets 245 140 - 440 K/cumm HISTORICAL RESULTS MPV 9.7 8.0 - 12.0 fl HISTORICAL RESULTS NRBC 0.0 0.0 - 0.0 % HISTORIC AL RESULTS NRBC, abs 0.00 0.00 - 0.00 K/cumm HISTORICAL RESULTS Blood specimen (specimen) 12/14/2015 7:08 PM CDT Historical Provider LAB BLOOD ORDERABLES Sandra l Result Performing Organization Address City/[facility] [[email or web address]] Co de Phone Number HISTORICAL RESULTS * Serum estimated glomerular filtration rate (12/14/2015 7:08 PM CDT) Pathologist [facility] eGFR >60 ml/min/1.7 3 m2 HISTORICAL RESULTS Comment: Interpretation of Estimated GFR (eGFR): Normal ?>/= 60 mL/min/1.73m2 Possible Chronic Kidney Disease ??15 - 59 mL/min/1.73m2 Possible Kidney Failure ?< 15 ??mL/min/1.73m2 If -Armenian multiply value by 1.16. ??Estimated glomerular filtration rate is determined by the CKD-EPI equation recommended by the National Kidney Foundation (KDIGO 2012 Clinical Practice Guideline for the Evaluation and Management of Chronic Kidney Disease. ??Kidney Intnl Suppl Aug 2012;3:1). ??The CKD-EPI equation should not be used in acute renal failure or acute kidney injury and is not valid in children. Serum 12/14/2015 7:08 PM CDT Historical Provider LAB BLOOD ORDERABLES Sandra l Result Performing Organization Address [facility] [[email or web address]] de Phone Number HISTORICAL RESULTS * Urine chorionic gonadotropin (HCG) (12/14/2015 6:45 PM CDT) HCG, ur Negative Negative HISTORICAL RESULTS Urine 12/14/2015 6:45 PM CDT Result [facility] Historical Provider LAB BLOOD ORDERABLES Sandra l Result Performing Organization Address [facility] de Phone Number HISTORICAL RESULTS * Urinalysis (12/14/2015 6:45 PM CDT) Color, ur Yellow Yellow HISTORICAL RESULTS Clarity, ur Clear Clear HISTORIC AL RESULTS Specific gravity, ur 1.019 1.003 - 1.030 HISTORICAL RESULTS Comment:Normal Ranges: 1.003 -1.030 pH, ur 7.0 4.5 - 8.0 HISTORICAL RESULTS Comment:Normal ranges: 4.5-8 .0 Protein, ur, quant Negative Negative mg/dl HISTORICAL RESULTS Glucose, ur, quant Negative Negative mg/dl HISTORICAL RESULTS Ketones, ur Negative Negative HISTORIC AL RESULTS Bilirubin, ur Negative Negative HISTOR ICAL RESULTS U Blood Negative Negative HISTORICAL RESULTS Urobilinogen, quant, ur 0.2 0.2 - 1.0 Gurjit Units/dl HISTORICAL RESULTS Comment:Normal Ranges: 0.2-1 .0 EU/dL Nitrites, ur Negative Negative HISTORI SWETA RESULTS Leukocyte esterase, ur Negative Negative HISTORICAL RESULTS Urine 12/14/2015 6:45 PM CDT Historical Provider LAB BLOOD ORDERABLES Sandra l Result Performing Organization Address [facility] [[email or web address]] de Phone Number HISTORICAL RESULTS * DISCHARGE LABORATORY CUMULATIVE REPORT (12/14/2015) Narrative 12/14/2015 Ordered by an unspecified provider. us Historical Provider LAB BLOOD ORDERABLES Sandra l Result documented in this encounter Visit Diagnoses Diagnosis Ovarian cyst Other and unspecified ovarian cyst Encounter for test with result negative documented in this encounter
--- OUTSIDE RECORDS SUMMARY | 2024-08-17 01:56 | XMS_ITS | Encounter Summary ---
Author Organization [facility] Facility Care Team Providers Care Assistant Counsel Name Role Phone Unavailable Primary Care Provider Unavailabl e Encounter Details Date Type Department Care Team (Late st Contact Info) Description 02/22/2016 5:40 PM CDT - 02/23/2016 2:30 AM CDT Hospital Encounter [facility] Crow Pittman MD [address] [facility] [address] [place] [address] Low back pain; Myalgia; Dizziness and giddiness; Nausea; Essential (primary) hypertension; Gastro-esophageal reflux disease without esophagitis; Other chronic pain; Headache; Anesthesia of skin; Cigarette nicotine dependence, uncomplicated; Other prison (current) 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 Social History Tobacco Use Types Packs/Day Years Used Date Smoking Tobacco: Never Assessed Comments Unknown Sex and Gender Information Value Date Recorded Sex Assigned at Not on file Legal Sex Female 9:06 PM GUEST EXPERIENCE REPRESENTATIVE Gender Identity Female 10/01/2023 8:44 AM GUEST EXPERIENCE REPRESENTATIVE Sexual Orientation Straight 10/01/2023 8: 44 AM GUEST EXPERIENCE REPRESENTATIVE documented as of this encounter Plan of Treatment Not on file documented as of this encounter Procedures Procedure Name Priority Date/Time Associated Diagnosis Comments BLOOD D-DIMER Routine 02/23/2016 1:03 AM CDT SERUM TROPONIN I Routine 02/23/2016 12:3 4 AM CDT PLASMA BASIC METABOLIC PANEL Routine 02/23/2016 12:34 AM CDT BLOOD CELL COUNT (CBC) Routine 02/23/2016 12:34 AM CDT BLOOD CELL MORPHOLOGIC EXAM Routine 02/23/2016 12:34 AM CDT DISCHARGE LABORATORY CUMULATIVE REPORT 02/23/2016 documented in this encounter Results * Blood D-dimer (02/23/2016 1:03 AM CDT) Pathologist [facility] D-dimer 220 110 - 230 ng/ml D-DU CDR HISTORICAL RESULTS Comment: Interpretive Data This D-dimer test is approved by the FDA to exclude suspected PE and DVT in outpatients when the result is <230 ng/mL in conjunction with a pre-test probability score of low or moderate using the Wells criteria. Current Interpretive Data was last revised on 2012. Blood specimen (specimen) 02/23/2016 1:03 AM CDT Rafy Pulido MD LAB BLOOD ORDERABLES Final Result Performing Organization Address [facility] de Phone Number CDR HISTORICAL RESULTS * Plasma basic metabolic panel (02/23/2016 12:34 AM CDT) [facility] Sodium 140 135 - 145 mmol/L CDR HISTORICAL RESULTS K, pl 3.5 3.3 - 4.9 mmol/L CDR HISTORICAL RESULTS Chloride 104 97 - 110 mmol/L CDR HISTORICAL RESULTS CO2 24 22 - 32 mmol/L CDR HISTORICAL RESULTS A. gap 12 2 - 15 mmol/L CDR HISTORICAL RESULTS Glucose 88 70 - 199 mg/dl CDR HISTORICAL RESULTS BUN 13 8 - 25 mg/dl CDR HISTORICAL RESULTS Creatinine 0.65 0.60 - 1.10 mg/dl CDR HISTORICAL RESULTS Calcium 9.7 8.5 - 10.3 mg/dl CDR HISTORICAL RESULTS Plasma 02/23/2016 12:3 4 AM CDT Rafy Pulido MD LAB BLOOD ORDERABLES Final Result Performing Organization Address [facility] Co de Phone Number CDR HISTORICAL RESULTS * Serum troponin I (02/23/2016 12:34 AM CDT) Troponin I <0.03 0.00 - 0.03 ng/ml CDR HISTORICAL RESULTS Comment: Interpretive Data Serial determinations are recommended for the diagnosis of myocardial infarction (Third Ames Definition of Myocardial Infarction. ??J Am Haris Cardiol 2012;60:1581-98). Current interpretive data was last revised on 13. Serum 02/23/2016 12:3 4 AM CDT Rafy Pulido MD LAB BLOOD ORDERABLES Final Result Performing Organization Address City/[facility] Co de Phone Number CDR HISTORICAL RESULTS * Blood cell count (CBC) (02/23/2016 12:34 AM CDT) Pathologist [facility] WBC 7.7 3.8 - 9.9 K/cumm CDR HISTORICAL RESULTS RBC 4.47 3.90 - 5.20 M/cumm CDR HISTORICAL RESULTS Hgb 13.8 11.9 - 15.5 g/dl CDR HISTORICAL RESULTS Hct 39.1 35.6 - 45.5 % CDR HISTORICAL RESULTS MCV 87.5 81.3 - 96.4 fl CDR HISTORICAL RESULTS MCH 30.9 27.1 - 33.3 pg CDR HISTORICAL RESULTS MCHC 35.3 32.3 - 35.7 g/dl CDR HISTORICAL RESULTS Rdw 12.3 11.1 - 14.9 % CDR HISTORICAL RESULTS RDW 39.5 35.7 - 48.1 fl CDR HISTORICAL RESULTS Platelets 244 150 - 400 K/cumm CDR HISTORICAL RESULTS MPV 10.2 9.1 - 12.3 fl CDR HISTORICAL RESULTS NRBC 0.0 0.0 - 0.2 % CDR HIST ORICAL RESULTS NRBC, abs 0.00 0.00 - 0.01 K/cumm CDR HISTORICAL RESULTS Blood specimen (specimen) 02/23/2016 12:34 AM CDT Rafy Pulido MD LAB BLOOD ORDERABLES Final Result Performing Organization Address [facility] de Phone Number CDR HISTORICAL RESULTS * (ABNORMAL) Blood cell morphologic exam (02/23/2016 12:34 AM CDT) Pathologist [facility] Neutrophils 41.8 % CDR HIST ORICAL RESULTS Immature granulocytes 0.4 % CDR HISTORICAL RESULTS Lymphocytes 46.2 % CDR HIST ORICAL RESULTS Monos 9.3 % CDR HISTOR ICAL RESULTS Eosinophils 1.8 % CDR HIST ORICAL RESULTS Basophils 0.5 % CDR HISTOR ICAL RESULTS Neutrophils, abs 3.2 1.7 - 6.5 K/cumm CDR HISTORICAL RESULTS Immature granulocyte, abs 0.0 0.0 - 0.1 K/cumm CDR HISTORICAL RESULTS Lymphocytes, abs 3.6(H) 0.8 - 3.3 K/cumm CDR HISTORICAL RESULTS Monocytes, absolute 0.7 0.2 - 0.8 K/cumm CDR HISTORICAL RESULTS Eosinophils, abs 0.1 0.0 - 0.5 K/cumm CDR HISTORICAL RESULTS Basophils, abs 0.0 0.0 - 0.1 K/cumm CDR HISTORICAL RESULTS Blood specimen (specimen) 02/23/2016 12:34 AM CDT Rafy Pulido MD LAB BLOOD ORDERABLES Final Result CDR HISTORICAL RESULTS * DISCHARGE LABORATORY CUMULATIVE REPORT (02/23/2016) Narrative 02/23/2016 Ordered by an unspecified provider. Historical Provider LAB BLOOD ORDERABLES Sandra l Result documented in this encounter Visit Diagnoses Diagnosis Low back pain Lumbago Myalgia Unspecified myalgia and myositis Dizziness and giddiness Nausea Nausea alone Essential (primary) hypertension Unspecified essential hypertension Gastro-esophageal reflux disease without esophagitis Other chronic pain Headache Anesthesia of skin Disturbance of skin sensation Cigarette nicotine dependence, uncomplicated Other prison (current) 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 documented in this encounter
--- OUTSIDE RECORDS SUMMARY | 2024-08-17 01:56 | XMS_ITS | Encounter Summary ---
Author Organization [facility] Facility Care Team Providers Care Lead Data Entry Operator Name Role Phone Unavailable Primary Care Provider Unavailabl e Encounter Details Date Type Department Care Team (Latest Contact Info) Description 01/17/2016 4:17 PM CDT - 01/17/2016 11:59 PM CDT Hospital Encounter [facility] Natalee Montes MD [address] [facility] [id number] [place], [place] [id number] Encounter for other preprocedural examination; Other specified conditions associated with female genital organs and menstrual cycle; Torsion of ovary and ovarian pedicle; Essential (primary) hypertension; Gastro-esophageal reflux disease without esophagitis; Nicotine dependence, uncomplicated Social History Tobacco Use Types Packs/Day Years Used Date Smoking Tobacco: Never Assessed Comments Unknown Sex and Gender Information Value Date Recorded Sex Assigned at Not on file Legal Sex Female 9:06 PM CYTOTECHNOLOGIST/HISTOTECHNOLOGIST Gender Identity Female 10/01/2023 8:44 AM CYTOTECHNOLOGIST/HISTOTECHNOLOGIST Sexual Orientation Straight 10/01/2023 8: 44 AM CYTOTECHNOLOGIST/HISTOTECHNOLOGIST documented as of this encounter Plan of Treatment Not on file documented as of this encounter Procedures Procedure Name Priority Date/Time Associated Diagnosis Comments PLASMA BASIC METABOLIC PANEL Routine 01/17/2016 5:45 PM CDT BLOOD CELL COUNT (CBC) Routine 01/17/2016 5:45 PM CDT BLOOD ABO, RH, INDIRECT AB SCREEN Routine 01/17/2016 5:45 PM CDT BLOOD CELL MORPHOLOGIC EXAM Routine 01/17/2016 5:45 PM CDT documented in this encounter Results * Blood ABO, Rh, indirect ab screen (01/17/2016 5:45 PM CDT) Pathologist [facility] Jorge, indirect Negative HISTORICAL RESULTS ABO, Rho(D) B Positive HISTORI SWETA RESULTS Blood specimen (specimen) 01/17/2016 5:45 PM CDT Casandra Acevedo LAB BLOOD ORDERABLES Sandra l Result Performing Organization Address [facility] de Phone Number HISTORICAL RESULTS * (ABNORMAL) Plasma basic metabolic panel (01/17/2016 5:45 PM CDT) Pathologist [facility] Sodium 139 135 - 145 mmol/L HISTORICAL RESULTS K, pl 3.7 3.3 - 4.9 mmol/L HISTORICAL RESULTS Chloride 102 97 - 110 mmol/L HISTORICAL RESULTS CO2 21(L) 22 - 32 mmol/L HISTORICAL RESULTS A. gap 16(H) 2 - 15 mmol/L HISTORICAL RESULTS Glucose 61(L) 70 - 199 mg/dl HISTORICAL RESULTS BUN 16 8 - 25 mg/dl HISTORICAL RESULTS Creatinine 0.67 0.60 - 1.10 mg/dl HISTORICAL RESULTS Calcium 9.7 8.5 - 10.3 mg/dl HISTORICAL RESULTS Plasma 01/17/2016 5:45 PM CDT Casandra Acevedo SECURITY INTELLIGENCE ANALYST LAB BLOOD ORDERABLES Sandra l Result Performing Organization Address [facility] de Phone Number HISTORICAL RESULTS * (ABNORMAL) Blood cell count (CBC) (01/17/2016 5:45 PM CDT) Pathologist [facility] WBC 11.5(H) 3.8 - 9.9 K/cumm HISTORICAL RESULTS RBC 4.96 3.90 - 5.20 M/cumm HISTORICAL RESULTS Hgb 15.1 11.9 - 15.5 g/dl HISTORICAL RESULTS Hct 42.7 35.6 - 45.5 % HISTORICAL RESULTS MCV 86.1 81.3 - 96.4 fl HISTORICAL RESULTS MCH 30.4 27.1 - 33.3 pg HISTORICAL RESULTS MCHC 35.4 32.3 - 35.7 g/dl HISTORICAL RESULTS Rdw 12.3 11.1 - 14.9 % HISTORICAL RESULTS RDW 38.5 35.7 - 48.1 fl HISTORICAL RESULTS Platelets 278 150 - 400 K/cumm HISTORICAL RESULTS MPV 10.4 9.1 - 12.3 fl HISTORICAL RESULTS NRBC 0.0 0.0 - 0.2 % HISTORIC AL RESULTS NRBC, abs 0.00 0.00 - 0.01 K/cumm HISTORICAL RESULTS Blood specimen (specimen) 01/17/2016 5:45 PM CDT Casandra Acevedo SECURITY INTELLIGENCE ANALYST LAB BLOOD ORDERABLES Sandra l Result Performing Organization Address [facility] Co de Phone Number HISTORICAL RESULTS * (ABNORMAL) Blood cell morphologic exam (01/17/2016 5:45 PM CDT) Neutrophils 56.1 % HISTORIC AL RESULTS Immature granulocytes 0.4 % HISTORICAL RESULTS Lymphocytes 32.6 % HISTORIC AL RESULTS Monos 9.0 % HISTORICAL RESULTS Eosinophils 1.6 % HISTORIC AL RESULTS Basophils 0.3 % HISTORICAL RESULTS Neutrophils, abs 6.5 1.7 - 6.5 K/cumm HISTORICAL RESULTS Immature granulocyte, abs 0.0 0.0 - 0.1 K/cumm HISTORICAL RESULTS Lymphocytes, abs 3.8(H) 0.8 - 3.3 K/cumm HISTORICAL RESULTS Monocytes, absolute 1.0(H) 0.2 - 0.8 K/cumm HISTORICAL RESULTS Eosinophils, abs 0.2 0.0 - 0.5 K/cumm HISTORICAL RESULTS Basophils, abs 0.0 0.0 - 0.1 K/cumm HISTORICAL RESULTS Blood specimen (specimen) 01/17/2016 5:45 PM CDT Casandra Acevedo SECURITY INTELLIGENCE ANALYST LAB BLOOD ORDERABLES Sandra l Result Performing Organization Address [facility] de Phone Number HISTORICAL RESULTS documented in this encounter Visit Diagnoses Diagnosis Encounter for other preprocedural examination Other specified conditions associated with female genital organs and menstrual cycle Torsion of ovary and ovarian pedicle Essential (primary) hypertension Unspecified essential hypertension Gastro-esophageal reflux disease without esophagitis Nicotine dependence, uncomplicated documented in this encounter
--- OUTSIDE RECORDS SUMMARY | 2024-08-17 01:56 | XMS_ITS | Encounter Summary ---
Author Organization [facility] Healthcare Address [facility] [place] [address] Care Team Providers Care Logging Specialist Name Role Phone Unavailable Primary Care Provider Unavailabl e Encounter Details Date Type Department Care Team (Late st Contact Info) Description 04/26/2015 1:45 PM CDT - 04/26/2015 4:51 PM CDT Hospital Encounter [facility] Melvin Duff, DO [address] [place] [address] Calculus of gallbladder; Tobacco use disorder; Personal history of urinary calculi Social History Tobacco Use Types Packs/Day Years Used Date Smoking Tobacco: Never Assessed Comments Unknown Sex and Gender Information Value Date Recorded Sex Assigned at Not on file Legal Sex Female 9:06 PM PATIENT FINANCIAL ADVOCATE Gender Identity Female 10/01/2023 8:44 AM PATIENT FINANCIAL ADVOCATE Sexual Orientation Straight 10/01/2023 8: 44 AM PATIENT FINANCIAL ADVOCATE documented as of this encounter Plan of Treatment Not on file documented as of this encounter Procedures Procedure Name Priority Date/Time Associated Diagnosis Comments RENAL COMPUTED TOMOGRAPHY (CT) WITHOUT CONTRAST, STONE PROTOCOL Routine 04/26/2015 4:05 PM CDT SERUM ESTIMATED GLOMERULAR FILTRATION RATE Routine 04/26/2015 3:10 PM CDT PLASMA COMPREHENSIVE METABOLIC PANEL Routine 04/26/2015 3:10 PM CDT BLOOD CELL COUNT (CBC), MORPHOLOGIC EXAM Routine 04/26/2015 3:10 PM CDT BLOOD CELL MORPHOLOGIC EXAM Routine 04/26/2015 3:10 PM CDT SERUM LIPASE Routine 04/26/2015 2:50 PM CDT SERUM AMYLASE Routine 04/26/2015 2:50 PM CDT DISCHARGE LABORATORY CUMULATIVE REPORT 04/26/2015 documented in this encounter Results * RENAL COMPUTED TOMOGRAPHY (CT) WITHOUT CONTRAST, STONE PROTOCOL (04/26/2015 4:05 PM CDT) Anatomical Region Laterality Modality N/A Computed Tomogra phy 04/26/2015 4:05 PM CDT Narrative 04/27/2015 6:[address] ??[id number] ??Acc#: ??[id number] DATE OF EXAM: ??Apr 26 2015 CLINICAL HISTORY: Right flank and abdominal pain. RESULT: Noncontrast spiral axial scans were obtained from above kidneys to ischial tuberosities. ??Axial as well as coronal and sagittal reformatted images were reviewed. No urinary tract calcification is seen. ??A few phleboliths are seen on each side of the pelvis. ??No renal mass, cyst or hydronephrosis/hydroureter is demonstrated. ??Urinary bladder caliber and contour are normal. ??Uterus and ovaries appear normal. ??A few diverticula are present in the sigmoid colon. ??No dilated or thickened loops of bowel are evident. ??Normal appendix extends into midline presacral region. There is no lymphadenopathy or ascites. ??Abdominal aorta and inferior vena cava are normal. ??Visualized portions of liver and spleen are normal. ??Fluid-fluid level in gallbladder suggests the presence of sludge. ??No calculi or wall thickening are seen. ??Bile ducts are not dilated. ??Pancreas and adrenal glands are normal. ??Very small fat containing umbilical hernia is noted. ??Abdominal and pelvic wall structures are otherwise unremarkable. ??Bony structures are unremarkable. IMPRESSION: 1. NO URINARY TRACT CALCIFICATION OR OTHER ABNORMALITY SEEN. 2. NORMAL APPENDIX. 3. SMALL FAT CONTAINING UMBILICAL HERNIA. 4. VERY MINIMAL DIVERTICULOSIS SIGMOID COLON. 5. PROBABLE SLUDGE IN GALLBLADDER. ??SUGGEST CORRELATION REGARDING POSSIBLE FASTING. 6. NO OTHER SIGNIFICANT ABDOMINAL OR PELVIC FINDINGS. Report called to Dr. Duff in Emergency Dept on April 26 at 1620 hours. Interpreting Physician: ??DR ALMITA DA SILVA M.D. ??Read on: ??Apr 26 2015 4:23P Transcribed by: ??fabrice ??On: Apr 26 2015 ??7:56P Approved Electronically by: ??AVINASH Walsh, DR RECIO ??on: ??Apr 27 2015 6:31P Attending: ??MELVIN DUFF Requesting: ??ALANA ACOSTA Requesting Fax: ??-- Attending Fax: ??-- Attending ID: ??[id number] Requesting ID: ??[id number] Report To 1 ID: ??[id number] Report To 1 Name: ??MELVIN DUFF Report To 1 FAX: ??-- NextGen Order #: Procedure Note Provider, MD Margarita - 12/09/[address] [place] [id number] Acc#: [id number] DATE OF EXAM: Apr 26 2015 CLINICAL HISTORY: Right flank and abdominal pain. RESULT: Noncontrast spiral axial scans were obtained from above kidneys toischial tuberosities. Axial as well as coronal and sagittal reformattedimages were reviewed. No urinary tract calcification is seen. A fewphleboliths are seen on each side of the pelvis. No renal mass, cyst orhydronephrosis/hydroureter is demonstrated. Urinary bladder caliber andcontour are normal. Uterus and ovaries appear normal. A few diverticulaare present in the sigmoid colon. No dilated or thickened loops of bowelare evident. Normal appendix extends into midline presacral region. Thereis no lymphadenopathy or ascites. Abdominal aorta and inferior vena cavaare normal. Visualized portions of liver and spleen are normal.Fluid-fluid level in gallbladder suggests the presence of sludge. Nocalculi or wall thickening are seen. Bile ducts are not dilated.Pancreas and adrenal glands are normal. Very small fat containingumbilical hernia is noted. Abdominal and pelvic wall structures are otherwise unremarkable. Bony structures are unremarkable. IMPRESSION: 1. NO URINARY TRACT CALCIFICATION OR OTHER ABNORMALITY SEEN. 2. NORMAL APPENDIX. 3. SMALL FAT CONTAINING UMBILICAL HERNIA. 4. VERY MINIMAL DIVERTICULOSIS SIGMOID COLON. 5. PROBABLE SLUDGE IN GALLBLADDER. SUGGEST CORRELATION REGARDING POSSIBLEFASTING. 6. NO OTHER SIGNIFICANT ABDOMINAL OR PELVIC FINDINGS. Report called to in Emergency Dept on April 26 at 1620 hours. Interpreting Physician: DR ALMITA DA SILVA M.D. Read on: Apr 26 [id number] Transcribed by: fabrice On: Apr 26 2015 7:56P Approved Electronically by: AVINASH Walsh, DR RECIO on: Apr 27 20156:31P Attending: MELVIN DUFF Requesting: ALANA ACOSTA Requesting Fax: -- Attending Fax: -- Attending ID: [id number] Requesting ID: [id number] Report To 1 ID: [id number] Report To 1 Name: MELVIN DUFF Report To 1 FAX: -- NextGen Order #: us Historical Provider MD HOLDEN CT PROCEDURES Final R esult * (ABNORMAL) Plasma comprehensive metabolic panel (04/26/2015 3:10 PM CDT) Sodium 138 135 - 145 mmol/L HISTORICAL RESULTS K, pl 3.5 3.5 - 5.1 mmol/L HISTORICAL RESULTS Chloride 104 97 - 110 mmol/L HISTORICAL RESULTS CO2 21(L) 22 - 32 mmol/L HISTORICAL RESULTS A. gap 16 8 - 16 mmol/L HISTORICAL RESULTS Glucose 77 70 - 199 mg/dl HISTORICAL RESULTS Comment: [...] data was last revised on 2014. BUN 8.3 8.0 - 25.0 mg/dl HISTORICAL RESULTS Creatinine 0.59(L) 0.60 - 1.10 mg/dl HISTORICAL RESULTS BUN/creat ratio 14 10 - 20 HIST ORICAL RESULTS Calcium 8.9 8.6 - 10.2 mg/dl HISTORICAL RESULTS Protein, sr 6.9 6.0 - 8.4 g/dl HISTORICAL RESULTS Alb 4.4 3.6 - 5.0 g/dl HISTORICAL RESULTS Alb/glob ratio 1.8 1.1 - 1.8 ratio HISTORICAL RESULTS Alk phos 69 40 - 130 Units/L HISTORICAL RESULTS ALT 40 5 - 45 Units/L HISTORICAL RESULTS AST 27 10 - 40 Units/L HISTORICAL RESULTS Bilirubin 0.4 <=1.2 mg/dl HISTORICAL RESULTS Plasma 04/26/2015 3:10 PM CDT Result [facility] Historical Provider LAB BLOOD ORDERABLES Sandra l Result Performing Organization Address [facility] de Phone Number HISTORICAL RESULTS * Blood cell morphologic exam (04/26/2015 3:10 PM CDT) Neutrophils 62.4 44.0 - 80.0 % HISTORICAL RESULTS Immature granulocytes 0.1 0.0 - 1.0 % HISTORICAL RESULTS Lymphocytes 29.7 13.0 - 44.0 % HISTORICAL RESULTS Monos 6.3 2.0 - 11.0 % HISTORICAL RESULTS Eosinophils 1.2 0.0 - 6.0 % HISTORICAL RESULTS Basophils 0.3 0.0 - 3.0 % HISTORICAL RESULTS Neutrophils, abs 4.6 1.6 - 7.0 K/cumm HISTORICAL RESULTS Immature granulocyte, abs 0.0 0.0 - 0.2 K/cumm HISTORICAL RESULTS Lymphocytes, abs 2.2 0.5 - 4.3 K/cumm HISTORICAL RESULTS Monocytes, absolute 0.5 0.1 - 1.0 K/cumm HISTORICAL RESULTS Eosinophils, abs 0.1 0.0 - 0.6 K/cumm HISTORICAL RESULTS Basophils, abs 0.0 0.0 - 0.3 K/cumm HISTORICAL RESULTS Blood specimen (specimen) 04/26/2015 3:10 PM CDT Historical Provider LAB BLOOD ORDERABLES Sandra l Result HISTORICAL RESULTS * Blood cell count (CBC), morphologic exam (04/26/2015 3:10 PM CDT) WBC 7.3 3.8 - 9.8 K/cumm HISTORICAL RESULTS Rdw 11.7 11.5 - 14.6 % HISTORICAL RESULTS RBC 4.15 3.90 - 5.00 M/cumm HISTORICAL RESULTS Platelets 247 140 - 440 K/cumm HISTORICAL RESULTS Hgb 12.7 12.1 - 15.1 g/dl HISTORICAL RESULTS MPV 9.7 8.0 - 12.0 fl HISTORICAL RESULTS Hct 36.2 36.1 - 44.3 % HISTORICAL RESULTS NRBC 0.0 0.0 - 0.0 % HISTORIC AL RESULTS MCV 87.2 80.0 - 100.0 fl HISTORICAL RESULTS NRBC, abs 0.00 0.00 - 0.00 K/cumm HISTORICAL RESULTS MCH 30.6 26.7 - 33.7 pg HISTORICAL RESULTS MCHC 35.1 32.7 - 36.0 g/dl HISTORICAL RESULTS Blood specimen (specimen) 04/26/2015 3:10 PM CDT Historical Provider LAB BLOOD ORDERABLES Sandra l Result Performing Organization Address [facility] de Phone Number HISTORICAL RESULTS * Serum estimated glomerular filtration rate (04/26/2015 3:10 PM CDT) eGFR >60 ml/min/1.7 3 m2 HISTORICAL RESULTS Comment: Interpretation of Estimated GFR (eGFR): Normal ?>/= 60 mL/min/1.73m2 Possible Chronic Kidney Disease ??15 - 59 mL/min/1.73m2 Possible Kidney Failure ?< 15 ??mL/min/1.73m2 If -Libyan multiply value by 1.16. ??Estimated glomerular filtration rate is determined by the CKD-EPI equation recommended by the National Kidney Foundation (KDIGO 2012 Clinical Practice Guideline for the Evaluation and Management of Chronic Kidney Disease. ??Kidney Intnl Suppl Aug 2012;3:1). ??The CKD-EPI equation should not be used in acute renal failure or acute kidney injury and is not valid in children. Serum 04/26/2015 3:10 PM CDT Historical Provider LAB BLOOD ORDERABLES Sandra l Result Performing Organization Address [facility] Co de Phone Number HISTORICAL RESULTS * Serum lipase (04/26/2015 2:50 PM CDT) Lip 24 10 - 70 Units/L HISTORICAL RESULTS Serum 04/26/2015 2:50 PM CDT Historical Provider LAB BLOOD ORDERABLES Sandra l Result Performing Organization Address [facility] Co de Phone Number HISTORICAL RESULTS * Serum amylase (04/26/2015 2:50 PM CDT) [place], pl 40 30 - 100 Units/L HISTORICAL RESULTS Serum 04/26/2015 2:50 PM CDT Historical Provider LAB BLOOD ORDERABLES Sandra l Result Performing Organization Address [facility] Co de Phone Number HISTORICAL RESULTS * DISCHARGE LABORATORY CUMULATIVE REPORT (04/26/2015) Narrative 04/26/2015 Ordered by an unspecified provider. Historical Provider LAB BLOOD ORDERABLES Sandra l Result documented in this encounter Visit Diagnoses Diagnosis Calculus of gallbladder Calculus of gallbladder without mention of cholecystitis or obstruction Tobacco use disorder Personal history of urinary calculi documented in this encounter
== END 2024-08-10 04:03 | disposition home or self-care (01) ==
PROVIDERS: Emergency Provider Emergency Medicine; PCP Internal Medicine
DX: N39.0 Urinary tract infection, site not specified (principal); I10 Essential (primary) hypertension; K21.9 Gastro-esophageal reflux disease without esophagitis; F17.210 Nicotine dependence, cigarettes, uncomplicated
CPT/HCPCS: 36415; 74176; 80053; 81001; 81025; 85025; 87086; 93005; 96361; 96374; 96375; 99284; A9270; J1171; J2405; J7030

== ENCOUNTER 2024-08-23 01:52 | Emergency (ER) | payer OTHER, SELFPAY ==
--- NOTE | ~2024-08-23 | CT_ITS ---
EXAMINATION: CT abdomen pelvis wo con DATE: 08/23/2024 09:37 INDICATION: Flank pain TECHNIQUE: Computed tomography (CT) of the abdomen and pelvis was performed without intravenous contr ast. Automated exposure control and iterative reconstruction technique were employed. Exam dose: 229 .15 mGy-cm total exam DLP. COMPARISON: 08/10/2024 CT abdomen pelvis FINDINGS: The lung bases are clear. Normal heart size. No pericardial or pleural effusion. Diffuse hepatic steatosis. No hepatic space-occupying mass lesion. Status post cholecystectomy. No bile duct or pancreatic duct dilatation. No pancreatic mass lesion or calcification. Normal splenic size. Normal morphology of the adrenal glands. No renal mass lesion or scarring is detected. Small nonobstructing calculus in each kidney. No ureteral calculus or hydroureteronephrosis. The urinary bladder is unremarkable. Status post hysterectomy. Normal-appearing left ovary. There is atherosclerotic calcification but normal caliber of the abdominal aorta. No intraperitoneal or retroperitoneal or pelvic mass lesion or adenopathy or ascites. Normal appendix. Minimal sigmoid diverticulosis; no CT evidence of diverticulitis. No bowel obstruction, bowel wall thickening, pneumatosis or intraperitoneal free air. Included skeletal structures are unremarkable; no suspicious osteolytic or osteoblastic lesions. IMPRESSION: Small pinpoint nonobstructing calculus in each kidney; no urinary tract calculus or hydr oureteronephrosis Normal appendix Hepatic steatosis Status post cholecystectomy Status post hysterectomy Reviewed, dictated and finalized at [facility]. Reviewed, dictated and finalized at [facility]. [employer] WORK[employer] IMPRESSION: Small pinpoint nonobstructing calculus in each kidney; no urinary tract calculus or hydroureteronephrosis Normal appendix Hepatic steatosis Status post cholecystectomy Status post hysterectomy
[2024-08-23 01:58] VITALS: BP 168/120; PULSE 105; RESP 20; TEMP 36.7; O2SAT 100
[2024-08-23 03:09] LABS: Add Urine Microscopic? YES; Appearance Urine Cloudy (Clear); Bacteria Urine 1+ /hpf; Bilirubin Urine Negative (Negative); Blood Urine 1+ (Negative); Calcium Oxalate Crystals Urine Present /hpf; Color Urine Yellow (Yellow); Glucose Urine UA Negative (Negative); Ketones Urine Trace mg/dL (Negative); Leukocyte Esterase Ur Negative LEU/UL (Negative); Mucus Urine Present /lpf; Need Manual Microscopic Reviewed; Nitrate Urine Negative (Negative); Non Pathogenic Casts 0-2; Protein Urine Trace mg/dL (Negative); Specific Grav Ur 1.027 (1.001-1.035); Squamous Epithelial Cell Urine Moderate /hpf (Few); Urobilinogen Urine 0.2 mg/dL (<2.0); pH Urine 5.5 (5.0-9.0)
[2024-08-23 03:10] LABS: BEDSIDEPREGUCG Negative (Negative)
[2024-08-23 05:25] VITALS: BP 235/145; PULSE 92; RESP 18; TEMP 36.8; O2SAT 100
--- NOTE | 2024-08-23 05:34 | PC.NURSE ---
This RN informed feeder driver of patients BP with hypertensive hx. feeder driver requested patient be moved to next in line for room.
[2024-08-23 08:18] VITALS: BP 217/146; PULSE 85; RESP 16; TEMP 36.4; O2SAT 99
[2024-08-23 09:27] VITALS: BP 216/148; PULSE 80; RESP 18; O2SAT 97
[2024-08-23] MEDS: LOSARTAN POTASSIUM 50 MG TABLET PO (09:45)
[2024-08-23] MEDS: HYDROmorphone HCL INJ (*CRX) 1 MG/ML SYR IV PUSH (09:55)
[2024-08-23] MEDS: ONDANSETRON INJ 4 MG/2 ML VIAL IV PUSH (09:55)
[2024-08-23 10:18] VITALS: BP 173/119; PULSE 70; RESP 19; O2SAT 98
--- NOTE | 2024-08-23 11:44 | ED.GENADULT ---
HPI - General Adult General Chief complaint: Urogenital-Female Stated complaint: Left sided kidney stone Time Seen by Provider: 08/23/24 09:10 History of Present Illness HPI narrative: Patient is a 44-year-old female who presents ER with flank pain. Has history kidney stones. No fevers or chills or sweats. Has paroxysm is a pain with vomiting that are similar to passing previous kidney stones. No alleviating factors. Pain radiates into the abdomen. From a she is reporting right-sided pain, for triage she reported left-sided pain. Related Data Home Medications ?Medication ?Instructions ?Recorded ?Confirmed ?Last Taken ?Type multivitamin 1 tablet PO DAILY 04/04/22 02/21/24 Unknown History acetaminophen 650 mg 650 mg PO Q8H PRN Pain 12/31/22 02/21/24 Unknown History tablet,extended release ibuprofen 800 mg tablet 200 mg PO TID PRN pain 12/31/22 02/21/24 Unknown History tamsulosin 0.4 mg capsule (Flomax) 0.4 mg PO DAILY 09/21/23 02/21/24 Unknown History amlodipine 10 mg tablet 10 mg PO DAILY 02/21/24 02/21/24 Unknown History pregabalin 150 mg capsule 150 mg PO ONCE 02/21/24 02/21/24 Unknown History Allergies Allergy/AdvReac Type Severity Reaction Status Date / Time ketorolac (From Toradol) Allergy Headache,Rash, Verified 08/23/24 02:01 Swollen tongue tramadol AdvReac Mild VOMITING/HE Verified 08/23/24 02:01 ADACHE hydralazine AdvReac Headache Verified 08/23/24 02:01 Review of Systems Review of Systems: All systems reviewed & are unremarkable except as noted in HPI and below Constitutional: Constitutional: Reports no additional constitutional complaints ENT: Reports system reviewed and no additional complaints, except as documented Cardiovascular: Cardiovascular: Reports no additional cardiovascular complaints Respiratory: Respiratory: Reports no additional respiratory complaints Gastrointestinal: Gastrointestinal: Reports no additional gastrointestinal complaints Genitourinary: Genitourinary: Reports no additional female genitourinary complaints [facility] Past Medical History Medical History Hypertension Gastroesophageal reflux disease Sleep paralysis, recurrent isolated Smoker Obesity Depression Multiple kidney stones Seasonal allergies Surgical History Surgical History History of laparoscopic cholecystectomy on 04/25/23 PDC History of tubal ligation History of endometrial ablation (2009) History of hysterectomy (2016) History of open reduction and internal fixation (ORIF) procedure (2012) Left elbow. History of section 2000, 2001, 2009 Status post cystoscopy with ureteral stent placement Family History Family History Mother Diabetes mellitus Depression Alcoholism Father Hypertension Sibling Congenital heart disease Son Asthma Grandparent Diabetes mellitus Cerebrovascular accident Social History Social History Social History: Surrogate medical decision maker: Bang Luke, spouse. Code status: Full code. Smoking packs per day: 0.5 Smoking cigarettes per day: 10.0 Years smoked: 32 Smoking pack-years: 16.00 Smoking status: Current every day smoker Tobacco type: cigarettes Alcohol intake: never Alcohol use details: Social alcohol use in moderation. Substance use: never Substance use type: does not use Do You Feel Safe in your Home?: Yes Lack of Transportation: No Lack of Food: Never True Current Housing: I Have Housing Concerned About Future Housing: No Difficulty Paying Gas/Electric Bills: No Difficulty Paying for Meds: No Currently Unemployed: No Education: High School Diploma/GED Difficulty w/ Childcare or Family Care: No Living arrangements: with family Spiritual care concerns: No Exam Narrative: GENERAL: Well-appearing, obese, and in no acute distress. HEAD: Normocephalic, atraumatic. ENT: Mucous membranes moist. CHEST: Clear to auscultation. No respiratory distress. HEART: Regular rate and rhythm. Normal peripheral pulses. ABDOMEN: Soft, nontender, nondistended, no CVA tenderness. EXTREMITIES: Normal range of motion. No edema. SKIN: Warm, dry, no rash. NEURO: Alert and oriented x3. PSYCH: Normal mood and affect. Course Course Emergency Course: Pain improved with Dilaudid. Informed of imaging and lab results. Will discharge on a small supply of antibiotics given bacteria in urine and white blood cells. She has follow-up with Urology this week. Vital Signs Vital signs: Vital Signs Temperature 98.1 F 08/23/24 01:58 Pulse Rate 105 H 08/23/24 01:58 Respiratory Rate 20 08/23/24 01:58 Blood Pressure 168/120 H 08/23/24 01:58 Pulse Oximetry 100 08/23/24 01:58 Oxygen Delivery Room Air 08/23/24 01:58 Temperature 97.6 F 08/23/24 08:18 Pulse Rate 70 08/23/24 10:18 Respiratory Rate 19 08/23/24 10:18 Blood Pressure 173/119 H 08/23/24 10:18 Pulse Oximetry 98 08/23/24 10:18 Oxygen Delivery Room Air 08/23/24 01:58 Medical Decision Making Vital Signs Vital Signs: Vital Signs Temperature 98.1 F 08/23/24 01:58 Pulse Rate 105 H 08/23/24 01:58 Respiratory Rate 20 08/23/24 01:58 Blood Pressure 168/120 H 08/23/24 01:58 Pulse Oximetry 100 08/23/24 01:58 Oxygen Delivery Room Air 08/23/24 01:58 Temperature 97.6 F 08/23/24 08:18 Pulse Rate 70 08/23/24 10:18 Respiratory Rate 19 08/23/24 10:18 Blood Pressure 173/119 H 08/23/24 10:18 Pulse Oximetry 98 08/23/24 10:18 Oxygen Delivery Room Air 08/23/24 01:58 Lab Data Labs: Lab Results 08/23/24 08/23/24 Range/Units 02:48 03:08 Urine Color Yellow (Yellow) Urine Appearance Cloudy H (Clear) Urine pH 5.5 (5.0-9.0) Ur Specific Lawrence 1.027 (1.001-1.035) Urine Protein Trace (Negative) mg/dL Urine Glucose (UA) Negative (Negative) mg/dL Urine Ketones Trace H (Negative) mg/dL Ur Blood (Man) 1+ H (Negative) Urine Nitrate Negative (Negative) Urine Bilirubin Negative (Negative) Urine Urobilinogen 0.2 (<2.0) mg/dL Add Ur Microanalysis Reviewed Leukocyte Esterase Rfl Negative (Negative) ALEKSANDRA/UL Urine RBC 11-20 H (0-2) /hpf Urine WBC 6-10 H (0-3) /hpf Ur Squamous Epith Cells Moderate (Few) /hpf Calcium Oxalate Crystal Present (None) /hpf Urine Bacteria 1+ H /hpf Urine Casts 0-2 Urine Mucus Present /lpf POC Urine HCG, Qual Negative (Negative) Imaging Data Radiologist's impression: ITS Impressions Abdomen/Pelvis CT 08/23/24 09:53 IMPRESSION: Small pinpoint nonobstructing calculus in each kidney; no urinary tract calculus or hydroureteronephrosis Normal appendix Hepatic steatosis Status post cholecystectomy Status post hysterectomy Discharge Plan Discharge Clinical Impression: Flank pain, acute, UTI (urinary tract infection) Patient Disposition: Home, Self-Care Condition: Stable Instructions: Urinary Tract Infection in Women (ED) Additional Instructions: Return to the emergency department if you develop severe abdominal pain, severe nausea and vomiting to the point where you are unable to keep down fluids, if you develop chest pain or difficulty breathing, blood in your stool, dizziness or fainting, or if you develop any other new or concerning symptoms as these could be signs of more serious medical illness. Try to stay well hydrated. Patient Language: Serbian Prescriptions: New cephalexin 500 mg capsule 500 mg PO Q12H Qty: 10 0RF No Action multivitamin Tablet 1 tablet PO DAILY acetaminophen 650 mg tablet extended release 650 mg PO Q8H PRN (Reason: Pain) Rx Instructions: take with 800mg ibuprofen pregabalin 150 mg capsule 150 mg PO ONCE varenicline tartrate [Chantix Starting Month Box] 0.5 mg (11)- 1 mg (42) tablets,dose pack See Rx Instructions PO PER PKG DIR Qty: 53 0RF Rx Instructions: PO PER PKG DIR amlodipine 10 mg tablet 10 mg PO DAILY nebivolol [Bystolic] 10 mg tablet 10 mg PO BID 30 Days Qty: 60 1RF ondansetron 4 mg tablet,disintegrating 4 mg PO Q8H PRN (Reason: nausea and vomiting) Qty: 30 0RF ondansetron 4 mg tablet,disintegrating 4 mg PO Q8H PRN (Reason: nausea and vomiting) Qty: 10 0RF cefdinir 300 mg capsule 300 mg PO Q12H Qty: 14 0RF dicyclomine 20 mg tablet 20 mg PO TID PRN (Reason: abdominal pain) Qty: 30 0RF cefdinir 300 mg capsule 300 mg PO Q12H Qty: 14 0RF ondansetron 4 mg tablet,disintegrating 4 mg PO Q8H PRN (Reason: nausea and vomiting) Qty: 10 0RF ibuprofen 800 mg tablet 200 mg PO TID PRN (Reason: pain) tamsulosin [Flomax] 0.4 mg Capsule 0.4 mg PO DAILY potassium chloride 20 mEq tablet extended release 20 meq PO DAILY Qty: 30 0RF phenazopyridine [Pyridium] 100 mg tablet 100 mg PO TID PRN (Reason: pain) Qty: 6 0RF cyclobenzaprine 10 mg tablet 10 mg PO TID PRN (Reason: muscle spasm) Qty: 14 0RF ondansetron 4 mg tablet,disintegrating 4 mg PO Q8H PRN (Reason: nausea and vomiting) Qty: 10 0RF hydrocodone-acetaminophen 5-325 mg tablet 1 tablet PO Q6H PRN (Reason: pain) Qty: 7 0RF tamsulosin [Flomax] 0.4 mg capsule 0.4 mg PO HS Qty: 14 0RF ondansetron 4 mg tablet,disintegrating 4 mg PO Q8H Qty: 14 0RF cefdinir 300 mg capsule 300 mg PO Q12H 10 Days Qty: 20 0RF tamsulosin [Flomax] 0.4 mg capsule 0.4 mg PO DAILY Qty: 20 0RF hydrocodone-acetaminophen 5-325 mg tablet 1 tablet PO Q6H PRN (Reason: pain) 3 Days Qty: 12 0RF hydrochlorothiazide 25 mg tablet 25 mg PO QAM Qty: 90 1RF losartan 50 mg tablet 50 mg PO BID Qty: 180 0RF Follow-up/Referrals: Lucas Carter DO [Primary Care Provider] - 1 Week
[2024-08-23 12:19] VITALS: BP 178/102; PULSE 76; RESP 16; O2SAT 97
== END 2024-08-23 12:19 | disposition home or self-care (01) ==
PROVIDERS: Emergency Medicine; Emergency Provider Emergency Medicine; PCP Internal Medicine
DX: N39.0 Urinary tract infection, site not specified (principal); N20.0 Calculus of kidney; F17.210 Nicotine dependence, cigarettes, uncomplicated
CPT/HCPCS: 74176; 81001; 81025; 87086; 96374; 96375; 99284; A9270; J1171; J2405

== ENCOUNTER 2024-10-12 18:03 | Emergency (ER) | payer OTHER, SELFPAY ==
[2024-10-12 18:13] VITALS: BP 229/123; PULSE 80; RESP 20; TEMP 36.3; O2SAT 98
--- NOTE | 2024-10-12 18:20 | ED.HA ---
HPI - Headache General Chief Complaint: Abdominal Pain <Cecelia Fall APRN - Last Filed: 10/12/24 18:23> Stated Complaint: right flank pain <Cecelia Fall APRN - Last Filed: 10/12/24 18:23> Time Seen by Provider: 10/12/24 18:10 <Cecelia Fall SPECIALIST ICU - Last Filed: 10/12/24 18:23> Focused HPI: Patient is a 44-year-old female who presents to the ER with concerns of a left kidney stone, headache, elevated blood pressure, and ?vision changes. She reports her symptoms started approximately 4 days ago with left flank pain and streaks of blood in her urine. Patient endorses a history of kidney stones and reports she has a urologist. She reports this morning she took her blood pressure and it was elevated. Patient endorses her headache started this morning with the elevated BP. She reports this is the ?worst headache of my life. Patient denies any one-sided weakness/tingling/numbness, chest pain, abdominal pain, recent fevers. She does endorse vomiting twice prior to arrival. GENERAL: Well-appearing, well-nourished, and in no acute distress. HEAD: Normocephalic, atraumatic. CHEST: Clear to auscultation. ?No respiratory distress. HEART: Regular rate and rhythm.? NEURO: ?Alert and oriented x3. Patient screened in triage and initial orders placed.? ?Additional care and disposition to be based upon?diagnostic testing and treatment. <Cecelia Fall APRN - Last Filed: 10/12/24 18:23> History of Present Illness HPI Narrative: 44-year-old female presents emergency department with concerns for kidney stone. Patient states she began developing right flank pain that radiates to her right upper quadrant over the past few days. She reports a history kidney stones this is how they presented in the past. She states she developed nausea about 1 hour ago but has not had any vomiting. She denies dysuria, hematuria, urinary frequency urgency. Patient also found to be hypertensive upon arrival. She states she checked her blood pressure today after developing a right temporal headache and was found to be very elevated. She states that her blood pressure increases when she is in pain which is which she is attributing her acutely elevated blood pressure to. She takes losartan, nebivolol and amlodipine as directed and has not missed any doses, although she has yet to take her nighttime dose of nebivolol. She denies chest pain or shortness of breath. She does note some black spots in her vision but states this only occurs when her right flank pain increases, then resolves immediately when her pain wanes. She describes the vision changes as ?lightheadedness? that occurs with the kidney stone pain. Her urologist is Dr. Gonzalez. <Winnie Bowers PA-C - Last Filed: 10/12/24 23:56> Related Data Home Medications: Home Medications ?Medication ?Instructions ?Recorded ?Confirmed ?Last Taken ?Type multivitamin 1 tablet PO DAILY 04/04/22 02/21/24 Unknown History amlodipine 10 mg tablet 10 mg PO DAILY 02/21/24 02/21/24 Unknown History pregabalin 150 mg capsule 150 mg PO ONCE 02/21/24 02/21/24 Unknown History <Cecelia Fall, CHRISTINE - Last Filed: 10/12/24 18:23> Allergies/Adverse Reactions: Allergies Allergy/AdvReac Type Severity Reaction Status Date / Time ketorolac (From Toradol) Allergy Headache,Rash, Verified 08/23/24 02:01 Swollen tongue tramadol AdvReac Mild VOMITING/HE Verified 08/23/24 02:01 ADACHE hydralazine AdvReac Headache Verified 08/23/24 02:01 <Ceeclia Fall, SPECIALIST ICU - Last Filed: 10/12/24 18:23> Review of Systems Review of Systems: All systems reviewed & are unremarkable except as noted in HPI and below <Winnie Bowers PA-C - Last Filed: 10/12/24 23:56> PMFSH Past Medical History Medical History: Medical History Hypertension Gastroesophageal reflux disease Sleep paralysis, recurrent isolated Smoker Obesity Depression Multiple kidney stones Seasonal allergies <Cecelia Fall APRN - Last Filed: 10/12/24 18:23> Surgical History Surgical History: Surgical History History of laparoscopic cholecystectomy on 04/25/23 PDC History of tubal ligation History of endometrial ablation (2010) History of hysterectomy (2016) History of open reduction and internal fixation (ORIF) procedure (2012) Left elbow. History of section 2000, 2001, 2009 Status post cystoscopy with ureteral stent placement <Cecelia Fall, SPECIALIST ICU - Last Filed: 10/12/24 18:23> Family History Family History: Family History Mother Diabetes mellitus Depression Alcoholism Father Hypertension Sibling Congenital heart disease Son Asthma Grandparent Diabetes mellitus Cerebrovascular accident <Cecelia Fall, SPECIALIST ICU - Last Filed: 10/12/24 18:23> Social History Social History: Social History Social History: Surrogate medical decision maker: Bang Luke, spouse. Code status: Full code. Smoking packs per day: 0.5 Smoking cigarettes per day: 10.0 Years smoked: 32 Smoking pack-years: 16.00 Smoking status: Current every day smoker Tobacco type: cigarettes Alcohol intake: never Alcohol use details: Social alcohol use in moderation. Substance use: never Substance use type: does not use Do You Feel Safe in your Home?: Yes Lack of Transportation: No Lack of Food: Never True Current Housing: I Have Housing Concerned About Future Housing: No Difficulty Paying Gas/Electric Bills: No Difficulty Paying for Meds: No Currently Unemployed: No Education: High School Diploma/GED Difficulty w/ Childcare or Family Care: No Living arrangements: with family Spiritual care concerns: No <Cecelia Fall, SPECIALIST ICU - Last Filed: 10/12/24 18:23> Exam Narrative: GENERAL: Well-appearing, well-nourished, and in no acute distress. HEAD: Normocephalic, atraumatic. EYES: PERRLA and EOMI. ENT: Nares clear, no rhinorrhea or epistaxis. Mucous membranes moist. NECK: Supple. CHEST: Clear to auscultation. No respiratory distress. HEART: Regular rate and rhythm. No murmur heard. Normal peripheral pulses. ABDOMEN: Soft, nontender, nondistended, normal active bowel sounds. Right CVA tenderness EXTREMITIES: Normal range of motion. No edema. SKIN: Warm, dry, no rash. NEURO: No focal deficits. Alert and oriented x3. Cranial nerves 2-12 intact. Strength 5/5 in BUE and BLE. Sensation intact throughout <Winnie Bowers PA-C - Last Filed: 10/12/24 23:56> Course Vital Signs Vital signs: Vital Signs Temperature 97.3 F L 10/12/24 18:13 Pulse Rate 80 10/12/24 18:13 Respiratory Rate 20 10/12/24 18:13 Blood Pressure 229/123 H 10/12/24 18:13 Pulse Oximetry 98 10/12/24 18:13 Oxygen Delivery Room Air 10/12/24 18:13 Temperature 97.3 F L 10/12/24 18:13 Pulse Rate 80 10/12/24 18:13 Respiratory Rate 20 10/12/24 18:13 Blood Pressure 229/123 H 10/12/24 18:13 Pulse Oximetry 98 10/12/24 18:13 Oxygen Delivery Room Air 10/12/24 18:13 <Cecelia Fall, CHRISTINE - Last Filed: 10/12/24 18:23> Vital Signs Temperature 97.3 F L 10/12/24 18:13 Pulse Rate 80 10/12/24 18:13 Respiratory Rate 20 10/12/24 18:13 Blood Pressure 229/123 H 10/12/24 18:13 Pulse Oximetry 98 10/12/24 18:13 Oxygen Delivery Room Air 10/12/24 18:13 Temperature 97.3 F L 10/12/24 18:13 Pulse Rate 80 10/12/24 18:13 Respiratory Rate 20 10/12/24 18:13 Blood Pressure 229/123 H 10/12/24 18:13 Pulse Oximetry 98 10/12/24 18:13 Oxygen Delivery Room Air 10/12/24 18:13 <Winnie Bowers PA-C - Last Filed: 10/12/24 23:56> MDM - Headache MDM Narrative Medical decision making narrative: 44-year-old female with history of kidney stones and hypertension presents to the emergency department with concerns for right-sided kidney stone for 4 days. Patient reporting pain to the right flank and right upper abdomen with associated nausea. She also developed a right temporal headache today and checked her blood pressure which was found to be elevated. She is on 3 antihypertensives which she has been compliant with, however has not taken her nighttime dose of nebivolol. Upon arrival to the ED patient is hypertensive at 229/123. She denies chest pain shortness of breath. She does note ?vision changes?, however upon further questioning she describes vision changes that only occurred or when her kidney stone pain flares, then resolves when her pain resolves. She describes the vision changes that occur as lightheadedness due to the pain. Lab work stress no leukocytosis or anemia. Chemistries reveal mild hypokalemia of 3.3 which is been orally repleted. Magnesium within normal limits. Bicarb is 19 with an anion gap of 13 which is likely due to dehydration, fluids provided. AST and ALT are chronically elevated, normal bilirubin and alk-phos. UA shows trace ketones, trace leuk esterase, 3 5 RBCs and 21-50 wbc's. No nitrites. Urine cultures pending. EKG obtained in triage shows sinus rhythm with mild ST depressions in the lateral leads and lead 2 and AVF, no ST elevations. Again patient continues to denies chest pain and shortness of breath. Repeat EKG is unchanged. No significant changes when compared to prior EKG in July 2024. CT brain shows no acute intracranial hemorrhage or mass effect. CT abdomen pelvis shows right-sided hydroureteronephrosis secondary to a 4 mm calculus proximal right ureter. Patient updated on results. She received IV fluids, morphine and headache cocktail with improvement in symptoms. She is requesting to be discharged home. She was also given a nighttime dose of her nebivolol. Repeat blood pressure improved. Headache has resolved. I discussed findings with Urology on-call, Dr. Alejandro, who agrees to [place], Zofran, Flomax and urine strainer, advises outpatient follow-up and Keflex pending urine culture. I advised to follow closely with her urologist as well as PCP. Advised her to take a blood pressure log. Additionally given EKG findings, will provide cardiology follow-up. Discussed return precautions. She is agreeable to plan verbalized understanding. Discharged in stable condition. <Winnie Bowers PA-C - Last Filed: 10/12/24 23:56> Lab Data Result diagrams: 10/12/24 18:33 10/12/24 18:33 <Cecelia Fall, SPECIALIST ICU - Last Filed: 10/12/24 18:23> Labs: Lab Results 10/12/24 Range/Units 18:33 WBC 8.1 (4.5-10.0) K/mm3 RBC 4.82 (4.2-5.4) M/mm3 Hgb 14.8 (12.0-15.0) g/dL Hct 42.1 (37.0-47.0) % MCV 87.3 (80-100) fl MCH 30.7 (26-34) pg MCHC 35.2 (32-36) g/dl RDW 12.8 (11.5-14.5) % Plt Count 232 (150-375) k/mm3 MPV 9.3 (7.4-10.4) fl Immature Gran % (Auto) 0.2 (0-0.5) % Neut % (Auto) 60.3 (45.5-73.1) % Lymph % (Auto) 31.5 (18.3-44.2) % [place] % (Auto) 5.4 (2.6-8.5) % Eos % (Auto) 2.0 (0-4.4) % Baso % (Auto) 0.6 (0.2-1.2) % Lymph # (Auto) 2.55 (0.9-3.2) K/mm3 [place] # (Auto) 0.4 (0.1-0.6) K/mm3 Eos # (Auto) 0.2 (0-0.3) K/mm3 Baso # (Auto) 0.1 (0.0-0.1) K/mm3 Abs Immat Gran (auto) 0.02 (0.00-0.031) K/mm3 Absolute Neuts (auto) 4.9 (1.3-6.7) K/mm3 Absolute Nucleated RBC 0.000 (0.0-0.012) K/mm3 Nucleated RBC % 0.0 (0.0-0.2) % PT 14.6 (11.1-14.7) Seconds INR 1.1 APTT 26.8 (22.3-36.8) Seconds Sodium 138 (137-145) mmol/L Potassium 3.3 L (3.4-5.0) mmol/L Chloride 106 (98-107) mmol/L Carbon Dioxide 19 L (22-30) mmol/L Anion Gap 13 H (4-12) mmol/L BUN 11 D (7-17) mg/dL Creatinine 0.57 L (0.7-1.0) mg/dL Estim Creat Clear Calc 106 ml/min Estimated GFR > 60 (59 - ) Glucose 121 H (65-110) mg/dL Calcium 9.0 (8.4-10.2) mg/dL Total Bilirubin 0.7 (0.2-1.3) mg/dL AST 43 H (14-36) U/L ALT 58 H (6-35) U/L Alkaline Phosphatase 83 (38-126) U/L Troponin I < 0.012 (0.000-0.034) ng/mL Total Protein 7.0 (6.3-8.2) g/dL Albumin 4.2 (3.5-5.1) g/dL Lipase 91 (23-300) U/L Urine Color Dark yellow (Yellow) Urine Appearance Cloudy H (Clear) Urine pH 5.5 (5.0-9.0) Ur Specific [place] 1.030 (1.001-1.035) Urine Protein Trace (Negative) mg/dL Urine Glucose (UA) Negative (Negative) mg/dL Urine Ketones Trace H (Negative) mg/dL Ur Blood (Man) Negative (Negative) Urine Nitrate Negative (Negative) Urine Bilirubin Negative (Negative) Urine Urobilinogen 1.0 (<2.0) mg/dL Add Ur Microanalysis Reviewed Leukocyte Esterase Rfl Trace H (Negative) ALEKSANDRA/UL Urine RBC 3-5 H (0-2) /hpf Urine WBC 21-50 H (0-3) /hpf Ur Squamous Epith Cells Few (Few) /hpf Urine Bacteria Rare /hpf Urine Casts 0-2 <Cecelia Fall, SPECIALIST ICU - Last Filed: 10/12/24 18:23> Lab Results 10/12/24 Range/Units 18:33 WBC 8.1 (4.5-10.0) K/mm3 RBC 4.82 (4.2-5.4) M/mm3 Hgb 14.8 (12.0-15.0) g/dL Hct 42.1 (37.0-47.0) % MCV 87.3 (80-100) fl MCH 30.7 (26-34) pg MCHC 35.2 (32-36) g/dl RDW 12.8 (11.5-14.5) % Plt Count 232 (150-375) k/mm3 MPV 9.3 (7.4-10.4) fl Immature Gran % (Auto) 0.2 (0-0.5) % Neut % (Auto) 60.3 (45.5-73.1) % Lymph % (Auto) 31.5 (18.3-44.2) % [place] % (Auto) 5.4 (2.6-8.5) % Eos % (Auto) 2.0 (0-4.4) % Baso % (Auto) 0.6 (0.2-1.2) % Lymph # (Auto) 2.55 (0.9-3.2) K/mm3 [place] # (Auto) 0.4 (0.1-0.6) K/mm3 Eos # (Auto) 0.2 (0-0.3) K/mm3 Baso # (Auto) 0.1 (0.0-0.1) K/mm3 Abs Immat Gran (auto) 0.02 (0.00-0.031) K/mm3 Absolute Neuts (auto) 4.9 (1.3-6.7) K/mm3 Absolute Nucleated RBC 0.000 (0.0-0.012) K/mm3 Nucleated RBC % 0.0 (0.0-0.2) % PT 14.6 (11.1-14.7) Seconds INR 1.1 APTT 26.8 (22.3-36.8) Seconds Sodium 138 (137-145) mmol/L Potassium 3.3 L (3.4-5.0) mmol/L Chloride 106 (98-107) mmol/L Carbon Dioxide 19 L (22-30) mmol/L Anion Gap 13 H (4-12) mmol/L BUN 11 D (7-17) mg/dL Creatinine 0.57 L (0.7-1.0) mg/dL Estim Creat Clear Calc 106 ml/min Estimated GFR > 60 (59 - ) Glucose 121 H (65-110) mg/dL Calcium 9.0 (8.4-10.2) mg/dL Total Bilirubin 0.7 (0.2-1.3) mg/dL AST 43 H (14-36) U/L ALT 58 H (6-35) U/L Alkaline Phosphatase 83 (38-126) U/L Troponin I < 0.012 (0.000-0.034) ng/mL Total Protein 7.0 (6.3-8.2) g/dL Albumin 4.2 (3.5-5.1) g/dL Lipase 91 (23-300) U/L Urine Color Dark yellow (Yellow) Urine Appearance Cloudy H (Clear) Urine pH 5.5 (5.0-9.0) Ur Specific [place] 1.030 (1.001-1.035) Urine Protein Trace (Negative) mg/dL Urine Glucose (UA) Negative (Negative) mg/dL Urine Ketones Trace H (Negative) mg/dL Ur Blood (Man) Negative (Negative) Urine Nitrate Negative (Negative) Urine Bilirubin Negative (Negative) Urine Urobilinogen 1.0 (<2.0) mg/dL Add Ur Microanalysis Reviewed Leukocyte Esterase Rfl Trace H (Negative) ALEKSANDRA/UL Urine RBC 3-5 H (0-2) /hpf Urine WBC 21-50 H (0-3) /hpf Ur Squamous Epith Cells Few (Few) /hpf Urine Bacteria Rare /hpf Urine Casts 0-2 <Winnie Bowers PA-C - Last Filed: 10/12/24 23:56> Discharge Plan Discharge Clinical Impression: Asymptomatic hypertension, Hypokalemia, Right ureteral stone, Abnormal ECG <Cecelia Fall APRN - Last Filed: 10/12/24 18:23> Patient Disposition: Home, Self-Care <Cecelia Fall APRN - Last Filed: 10/12/24 18:23> Condition: Stable <Cecelia Fall APRN - Last Filed: 10/12/24 18:23> Instructions: Antibiotic Form, Kidney Stones (ED), Hypokalemia (ED), How to Strain Your Urine (ED), Hypertension (ED) <Cecelia Fall APRN - Last Filed: 10/12/24 18:23> Additional Instructions: Your evaluated in the emergency department for right flank pain. Your found have a 4 mm proximal right kidney stone as discussed. Please strain your urine as directed and take the stone to your urologist if you catch it. Take the medications as prescribed. You also found have elevated blood pressure, please continue taking her blood pressure medications. Take a blood pressure log daily and follow-up with primary care provider. Your EKG showed some findings that are concerning for underlying coronary artery disease. Please follow-up with the therapeutic case manager. Return to the emergency department if you develop chest pain, shortness of breath, fever, you are unable to tolerate food or fluids, or other concerning symptoms. <Cecelia Fall APRN - Last Filed: 10/12/24 18:23> Patient Language: [place]e <Cecelia Fall APRN - Last Filed: 10/12/24 18:23> Prescriptions: New tamsulosin [Flomax] 0.4 mg capsule 0.4 mg PO HS Qty: 14 0RF cephalexin 500 mg capsule 500 mg PO Q6H Qty: 28 0RF ondansetron 4 mg tablet,disintegrating 4 mg PO Q8H Qty: 14 0RF hydrocodone-acetaminophen 5-325 mg tablet 1 tablet PO Q8H PRN (Reason: pain) Qty: 14 0RF No Action multivitamin Tablet 1 tablet PO DAILY pregabalin 150 mg capsule 150 mg PO ONCE amlodipine 10 mg tablet 10 mg PO DAILY nebivolol [Bystolic] 10 mg tablet 10 mg PO BID 30 Days Qty: 60 1RF cephalexin 500 mg capsule 500 mg PO Q12H Qty: 10 0RF potassium chloride 20 mEq tablet extended release 20 meq PO DAILY Qty: 30 0RF losartan 50 mg tablet 50 mg PO BID Qty: 180 0RF <Cecelia Fall APRN - Last Filed: 10/12/24 18:23> Follow-up/Referrals: Volodymyr Alan MD [Physician] - Maximino Gonzalez MD [Physician] - Lucas Carter DO [Primary Care Provider] - <Cecelia Fall APRN - Last Filed: 10/12/24 18:23>
[2024-10-12 18:41] LABS: Basophils Absolute Auto 0.1 K/mm3 (0.0-0.1); Basophils Percent Auto 0.6 % (0.2-1.2); Eosinophils Absolute Auto 0.2 K/mm3 (0-0.3); Hematocrit 42.1 % (37.0-47.0); Hemoglobin 14.8 g/dL (12.0-15.0); Immature Granulocyte Absolute 0.02 K/mm3 (0.00-0.031); Immature Granulocyte Percent A 0.2 % (0-0.5); Lymphocytes Absolute Auto 2.55 K/mm3 (0.9-3.2); Lymphocytes Percent Auto 31.5 % (18.3-44.2); Mean Corpuscular HGB Conc 35.2 g/dl (32-36); Mean Corpuscular Hemoglobin 30.7 pg (26-34); Mean Corpuscular Volume 87.3 fl (80-100); Mean Platelet Volume 9.3 fl (7.4-10.4); Monocytes Absolute Auto 0.4 K/mm3 (0.1-0.6); Monocytes Percent Auto 5.4 % (2.6-8.5); Neutrophils Absolute Auto 4.9 K/mm3 (1.3-6.7); Neutrophils Percent Auto 60.3 % (45.5-73.1); Platelet Count Result 232 k/mm3 (150-375); Red Blood Count 4.82 M/mm3 (4.2-5.4); Red Cell Distribution Width 12.8 % (11.5-14.5); White Blood Count 8.1 K/mm3 (4.5-10.0)
[2024-10-12 18:54] LABS: Alanine Aminotransferase 58 U/L (6-35); Albumin Level 4.2 g/dL (3.5-5.1); Alkaline Phosphatase 83 U/L (38-126); Anion Gap 13 mmol/L (4-12); Aspartate Amino Transferase 43 U/L (14-36); Bilirubin,Total 0.7 mg/dL (0.2-1.3); Blood Urea Nitrogen 11 mg/dL (7-17); Carbon Dioxide 19 mmol/L (22-30); Chloride 106 mmol/L (98-107); Estimated CRCL calculation 106 ml/min; Estimated Glomerular Filt Rate > 60; Glucose 121 mg/dL (65-110); Lipase 91 U/L (23-300); Potassium 3.3 mmol/L (3.4-5.0); Sodium 138 mmol/L (137-145)
[2024-10-12 18:57] LABS: INR 1.1; Prothrombin Time 14.6 Seconds (11.1-14.7)
[2024-10-12 18:58] LABS: Partial Thromboplastin Time 26.8 Seconds (22.3-36.8)
[2024-10-12 19:05] LABS: Troponin I < 0.012 ng/mL (0.000-0.034)
[2024-10-12 19:06] LABS: Add Urine Microscopic? YES; Appearance Urine Cloudy (Clear); Bacteria Urine Rare /hpf; Bilirubin Urine Negative (Negative); Blood Urine Negative (Negative); Color Urine Dark Yellow (Yellow); Glucose Urine UA Negative (Negative); Ketones Urine Trace mg/dL (Negative); Leukocyte Esterase Ur Trace LEU/UL (Negative); Need Manual Microscopic Reviewed; Nitrate Urine Negative (Negative); Non Pathogenic Casts 0-2; Protein Urine Trace mg/dL (Negative); Squamous Epithelial Cell Urine Few /hpf (Few); WBC Urine 21-50 /hpf (0-3); pH Urine 5.5 (5.0-9.0)
[2024-10-12] MEDS: ACETAMINOPHEN 500 MG TABLET 1000 MG PO (23:21)
[2024-10-12] MEDS: SODIUM CHLORIDE 0.9% IV 1,000 ML 999 ML IV CONT (23:21)
[2024-10-12] MEDS: MORPHINE SULFATE (*CRX) 4 MG/ML INJ IV PUSH (23:22)
[2024-10-12] MEDS: diphenhydrAMINE HCl CAP 25 MG CAPSULE PO (23:26)
[2024-10-12] MEDS: METOCLOPRAMIDE HCL 10 MG TABLET PO (23:26)
[2024-10-12 23:53] VITALS: BP 192/140; PULSE 65; RESP 17; O2SAT 98
[2024-10-13] MEDS: POTASSIUM CHLORIDE 20 MEQ PACKET (FOR LIQUID) PO (00:03)
[2024-10-13] MEDS: CEPHALEXIN 500 MG CAPSULE PO (00:04)
[2024-10-13] MEDS: TAMSULOSIN HCL 0.4 MG CAPSULE PO (00:04)
[2024-10-13 00:05] VITALS: PULSE 66
[2024-10-13] MEDS: NEBIVOLOL HCL 5 MG TABLET 10 MG PO (00:05)
[2024-10-13 00:15] LABS: Magnesium 1.8 mg/dL (1.6-2.3)
[2024-10-13 00:44] VITALS: BP 208/112; PULSE 64; RESP 15; O2SAT 96
[2024-10-13 01:02] VITALS: BP 208/112; PULSE 64; RESP 15; O2SAT 96
== END 2024-10-13 01:03 | disposition home or self-care (01) ==
PROVIDERS: Registered Nurse; Emergency Provider Physician Assistant; PCP Internal Medicine
DX: N13.2 Hydronephrosis with renal and ureteral calculous obstruction (principal); E87.6 Hypokalemia; I10 Essential (primary) hypertension; R94.31 Abnormal electrocardiogram [ECG] [EKG]; K21.9 Gastro-esophageal reflux disease without esophagitis; G47.53 Recurrent isolated sleep paralysis; Z87.442 Personal history of urinary calculi; E66.9 Obesity, unspecified; Z68.31 Body mass index [BMI] 31.0-31.9, adult; Z90.49 Acquired absence of other specified parts of digestive tract; Z90.710 Acquired absence of both cervix and uterus; F17.210 Nicotine dependence, cigarettes, uncomplicated; Z79.899 Other long term (current) 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; I51.7 Cardiomegaly
CPT/HCPCS: 36415; 70450; 74176; 80053; 81001; 83690; 83735; 84484; 85025; 85610; 85730; 87086; 93005; 96361; 96374; 99284; A9270; J2270; J7030

== ENCOUNTER 2024-10-17 21:58 | Emergency (ER) | payer MEDICAID, SELFPAY ==
--- NOTE | ~2024-10-17 | CT_ITS ---
Non-contrast CT scan of the Abdomen and Pelvis Clinical indication: Right flank pain Technique: 2.5 mm axial scans were obtained through the abdomen and pelvis without intravenous or or al contrast. Dose reduction technique was used on this scan by utilizing automated exposure control a nd iterative reconstruction technique. The dose-length product (DLP) was 250.92 mGy-cm. COMPARISON: 10/12/2024 Findings: Images through the lung bases reveal no abnormalities. Small bilateral nonobstructing renal stones are present, measuring up to 2 mm. No definite ureteral s tones seen. No hydronephrosis. The liver, spleen, pancreas, and adrenals appear normal. Cholecystectomy clips are present. There is no aortic aneurysm. There is no evidence of bowel obstruction. Images through the pelvis were performed. There is no evidence of ascites or lymphadenopathy. Urinary bladder unremarkable no pelvic mass. No ascites. Impression: Nonobstructing renal stones measuring up to 2 mm. Proximal right ureteral stone seen on prior exam ap pears to have migrated retrograde back into the renal collecting system on the right side. No definit e ureteral stone or hydronephrosis seen currently. Reviewed, dictated and finalized at location . Impression: Nonobstructing renal stones measuring up to 2 mm. Proximal right ureteral stone seen on prior exam appears to have migrated retrograde back into the renal col lecting system on the right side. No definite ureteral stone or hydronephrosis seen currently.
--- OUTSIDE RECORDS SUMMARY | 2024-10-17 22:00 | XMS_ITS | Patient Health Summary ---
Author Organization [facility] Address [address] [place] [address] Care Team Providers Care Rn Oncology Research Name Role Phone Damian Sadler MD Primary Care Provider [phone] Note from Formerly named [facility],non-owned Affiliates and Associated Physician Practices is amultiple site organization consisting of ambulatory clinics and hospital sitesin [place], [place], [place] and [place]. This disclosure is being madepursuant to the Care Everywhere program and may not contain all information available regarding this patient. Last updated 18.[facility] Allergies * Hydralazine(Vomiting) * [...] 86 02/20/2024 9:18 AM CDT Temperature 36.2 C (97.1 F) 02/03/2024 2:00 AM CDT Respiratory Rate 16 02/20/2024 9:18 AM CDT [...] PM Narrative 02/20/2024 12:05 PM CDT PROCEDURE: XR HAND BILAT 2VW DATE/TIME OF EXAM: 02/20/2024 11:46 AM CLINICAL INFORMATION: None relevant/not provided if blank. Indication: M25.50: Pain in unspecified joint R20.0: Anesthesia of skin M79.18: Myalgia, other site M54.59: Other low back pain M54.2: Cervicalgia R53.83: Other fatigue Z79.899: Other shelter (current) 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 Additional History: COMPARISON: None. [...] M54.2: Cervicalgia R53.83: Other fatigue Z79.899: Other shelter (current) 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 Additional History: COMPARISON: None. [...] PM Narrative 02/20/2024 12:18 PM CDT PROCEDURE: XR SI JOINTS 3VW OR MORE, XR LUMBAR SPINE 2 OR 3VW DATE/TIME OF EXAM: 02/20/2024 11:46 AM CLINICAL INFORMATION: None relevant/not provided if blank. Indication: M25.50: Pain in unspecified joint. R20.0: Anesthesia of skin. M79.18: Myalgia, other site. M54.59: Other low back pain. M54.2: Cervicalgia. R53.83: Other fatigue. Z79.899: Other termination clerk (current) 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. Additional History: COMPARISON: None. [...] M54.2: Cervicalgia. R53.83: Other fatigue. Z79.899: Other termination clerk (current) 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. Additional History: COMPARISON: None. [...] PM Narrative 02/20/2024 12:18 PM CDT PROCEDURE: XR SI JOINTS 3VW OR MORE, XR LUMBAR SPINE 2 OR 3VW DATE/TIME OF EXAM: 02/20/2024 11:46 AM CLINICAL INFORMATION: None relevant/not provided if blank. Indication: M25.50: Pain in unspecified joint. R20.0: Anesthesia of skin. M79.18: Myalgia, other site. M54.59: Other low back pain. M54.2: Cervicalgia. R53.83: Other fatigue. Z79.899: Other shelter (current) 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. Additional History: COMPARISON: None. [...] M54.2: Cervicalgia. R53.83: Other fatigue. Z79.899: Other shelter (current) 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. Additional History: COMPARISON: None. [...] Resulting Agency Comment Lab Testing performed at: [facility] [address] [id number] Nancy Cotto MD LAB - CHEMISTRY TOBY BILLY [facility] Organization Address City/State/ZIP Co de Phone Number [facility] INSURANCE BILL [address] [place] [address] * HEPATITIS SCREEN ACUTE ([facility]) (02/20/2024 10:47 [...] Resulting Agency Comment Lab Testing performed [facility]: [facility] [address] [facility] [id number] Nancy Cotto MD LAB - CHEMISTRY TOBY BILLY [facility] INSURANCE BILL [address] [place] [address] * RHEUMATOID ARTHRITIS 14-3-3 ETA (02/20/2024 10:47 AM CDT) 14.3.3 eta Protein <0.20 ng/mL [facility] INSURANCE BILL Comment: Reference Range: < 0.20 Comments: 14-3-3 eta protein is a joint-derived, proinflammatory head of ethics and compliance that is implicated in the joint erosion process and pathogenesis of RA. Serum 14-3-3 eta is elevated in both early and established RA. - Diagnostic value: 14-3-3 eta is highly specific for RA. Serum 14-3-3 eta may be especially helpful in identifying patients with early RA where it provides a 15% incremental benefit to the diagnostic sensitivity of markers, Rheumatoid Arthritis (RA) Factor and Cyclic Citrullinated Peptide (CCP) Antibodies, i.e. An additional 15% of early RA patients may be detected by 14-3-3 eta (1). - Correlation with radiographic evidence of joint damage. Positive serum 14-3-3 eta levels are associated with higher rates of joint damage as measured by radiographic assessments (Sharp/van debra Heijde Score) (2). - Serum 14-3-3 eta levels above a threshold of 0.50 ng/ml identify RA patients who will have more rapid radiographic progression, even those who may be in SDAI remission (1). References: 1. Faustina Gold, et al. Serum levels of 14-3-3 eta protein supplement C-reactive protein and rheumatoid arthritis- associated antibodies to predict clinical and radiographic outcomes in a prospective cohort of patients with recent-onset inflammatory polyarthritis. Arthritis Res Ther 2016;18:37 2. Rivas SOTO, et al. 14-3-3 eta is a novel head of ethics and compliance associated with the pathogenesis of rheumatoid arthritis and joint damage. Arthritis Res Ther 2014;16:R99. This test was developed and its performance characteristics determined by [employer]. It has not been cleared or approved by the Food and Drug Administration. Blood BLOOD SPECIMEN / Unknown 02/20/2024 10:47 AM CDT 02/20/2024 Narrative Resulting Agency Comment Lab Testing performed at: [facility] [address] [place] [address] [phone] Nancy Cotto MD LAB - CHEMISTRY ORDE RABLES Performing Organization Address [facility]/ZIP Co de Phone Number [facility] INSURANCE BILL [address] [place] [address] * INTERPRETATION REFLEXED (02/20/2024 10:47 AM CDT) Interpretation [facility] INSURANCE BILL Comment: Not infected with HCV unless early or acute infection is suspected (which may be delayed in an immunocompromised individual), or other evidence exists to indicate HCV infection. 02/20/2024 10:4 7 AM CDT 02/20/2024 Narrative Resulting Agency Comment Lab Testing performed at: [facility] [address] [phone] Nancy Cotto MD LAB - SEROLOGY ORDER ROLANDA Performing Organization Address City/[facility] Co de Phone Number [facility] INSURANCE BILL [address] [place] [address] * (ABNORMAL) IMMUNOFIXATION BLOOD (02/20/2024 10:47 AM CDT) Only the most recent of2 resultswithin the time period is included. Immunofixation Result [facility] INSURANCE BILL Comment:No monoclonality det ected. IgG Quantitative 814 586 - 1,602 mg/dL [facility] INSURANCE BILL IgA Quantitative 429(H) 87 - 352 mg/dL [facility] INSURANCE BILL IgM Quantitative 112 26 - 217 mg/dL [facility] INSURANCE BILL Blood BLOOD SPECIMEN / Unknown 02/20/2024 10:47 AM CDT 02/20/2024 Narrative Resulting Agency Comment Lab Testing performed at: [facility] [address] [facility] [phone] Nancy Cotto MD LAB - CHEMISTRY TOBY BILLY [facility] INSURANCE BILL [address] [place] [address] * RHEUMATOID FACTOR BLOOD QUANTITATIVE (02/20/2024 10:47 AM CDT) Rheumatoid Factor <10.0 <14.0 IU/mL [facility] INSURANCE BILL Blood BLOOD SPECIMEN / Unknown 02/20/2024 10:47 AM CDT 02/20/2024 Narrative Resulting Agency Comment Lab Testing performed at: [address] [phone] Nancy Cotto MD LAB - CHEMISTRY TOBY BILLY Performing Organization Address [facility]/ZIP Co de Phone Number [facility] INSURANCE BILL [address] [place] [address] * C-REACTIVE PROTEIN (02/20/2024 10:47 AM CDT) Only the most recent of2 resultswithin the time period is included. C-Reactive Protein <1 0 - 10 mg/L [facility] INSURANCE BILL Blood BLOOD SPECIMEN / Unknown 02/20/2024 10:47 AM CDT 02/20/2024 Narrative Resulting Agency Comment Lab Testing performed at: [facility] [address] [facility] [phone] Nancy Cotto MD LAB - CHEMISTRY TOBY BILLY [facility] INSURANCE BILL [address] [place] [address] * HLA TYPING B27 (02/20/2024 10:47 AM CDT) HLA-B27 Negative [facility] INSURANCE BILL Comment: HLA-B*27 Negative B27 allele interpretation for all loci based on IMGT/HLA database version 3.51.0 This test was developed and its performance characteristics determined by [employer]. It has not been cleared or approved by the Food and Drug Administration. HLA Lab CLIA ID Number [id number] This test was performed using Polymerase Chain Reaction (PCR) and Sequence Specific Oligonucleotide Probes (SSOP) technique. Sequence Based Typing (SBT) may be used as a supplemental method when necessary. If you have questions, please call [facility] customer service at or email at [email or web address]. Blood BLOOD SPECIMEN / Unknown 02/20/2024 10:47 AM CDT 02/20/2024 Narrative Resulting Agency Comment Lab Testing performed at: [place] [id number] [facility] [phone] Nancy Cotto MD LAB - CHEMISTRY TOBY BILLY Performing Organization Address City/[facility]/ZIP Co de Phone Number [facility] [address] [place] [address] * ANGIOTENSIN CONVERTING ENZYME BLOOD (02/20/2024 10:47 AM CDT) Angiotensin-Con verting Enzyme 77 14 - 82 U/L [facility] Blood BLOOD SPECIMEN / Unknown 02/20/2024 10:47 AM CDT 02/20/2024 Narrative Resulting Agency Comment Lab Testing performed at: [place] [id number] [facility] [id number] Nancy Cotto MD LAB - CHEMISTRY TBOY BILLY Performing Organization Address City/[facility]/ZIP Co de Phone Number [facility] INSURANCE BILL [address] [place] [address] * ALDOLASE (02/20/2024 10:47 AM CDT) Aldolase 6.9 3.3 - 10.3 U/L [facility] INS[facility] Blood BLOOD SPECIMEN / Unknown 02/20/2024 10:47 AM CDT 02/20/2024 Narrative Resulting Agency Comment Lab Testing performed at: [place] [id number] [facility] [id number] Nancy Cotto MD LAB - CHEMISTRY TOBY BILLY Performing Organization Address [facility]/ZIP Co de Phone Number [facility] INSURANCE BILL [address] [place] [address] * CYCLIC CITRULLINATED PEPTIDE(CCP) AB IGG (02/20/2024 10:47 AM CDT) CCP Antibodies IgG/IgA <20 <20 Units [facility] INSURANCE BILL Comment: Negative: <20 Weak Positive: 20-39 Moderate Positive: 40-59 Strong Positive: >59 Blood BLOOD SPECIMEN / Unknown 02/20/2024 10:47 AM CDT 02/20/2024 Narrative Resulting Agency Comment Lab Testing performed at: [facility] [address] [place] [address] [phone] Nancy Cotto MD LAB - CHEMISTRY TOBY BILLY Performing Organization Address [facility] Co de Phone Number [facility] INSURANCE BILL [address] [place] [address] * ERYTHROCYTE SEDIMENTATION RATE (02/20/2024 10:47 AM CDT) Only the most recent of2 resultswithin the time period is included. Erythrocyte Sedimentation Rate Westergren 10 0 - 32 mm/hr [facility] INSURANCE BILL Blood BLOOD SPECIMEN / Unknown 02/20/2024 10:47 AM CDT 02/20/2024 Narrative Resulting Agency Comment Lab Testing performed at: [facility] [address] [facility] [phone] Nancy Cotto MD LAB - HEMATOLOGY ORD ERABLES Performing Organization Address City/[facility]/ZIP Co de Phone Number [facility] INSURANCE BILL [address] [place] [address] * COMPLEMENT C4 (02/20/2024 10:47 AM CDT) Complement C4 26 14 - 44 mg/dL [facility] INSURANCE BILL Blood BLOOD SPECIMEN / Unknown 02/20/2024 10:47 AM CDT 02/20/2024 Narrative Resulting Agency Comment Lab Testing performed at: [facility] [address] [facility] [phone] Nancy Cotto MD LAB - SEROLOGY ORDER ROLANDA [facility] INSURANCE BILL [address] [place] [address] * CK BLOOD (02/20/2024 10:47 AM CDT) Pathologist [facility] CK 73 32 - 182 U/L [facility] INSURANCE BILL Blood BLOOD SPECIMEN / Unknown 02/20/2024 10:47 AM CDT 02/20/2024 Narrative Resulting Agency Comment Lab Testing performed at: [facility] [place] [address] [id number] Nancy Cotto MD LAB - CHEMISTRY ORDE RABLES Performing Organization Address City/[facility]/ZIP Co de Phone Number [facility] INSURANCE BILL [address] [place] [address] * PROTEIN ELECTROPHORESIS BLOOD (02/20/2024 10:47 AM CDT) Only the most recent of2 resultswithin the time period is included. Pathologist [facility] Protein Total 6.7 6.0 - 8.5 g/dL [facility] INSURANCE BILL Albumin 3.8 2.9 - 4.4 g/dL [facility] INSURANCE BILL Alpha-1 Globulin 0.2 0.0 - 0.4 g/dL [facility] INSURANCE BILL Ygmaj-0-Aewggsjj 0.6 0.4 - 1.0 g/dL [facility] INSURANCE [...] scan will follow via computer, mail, or belt loop machine operator delivery. P E Interpretation, S [facility] INSURANCE BILL Comment: The SPE pattern appears unremarkable. Evidence of monoclonal protein is not apparent. Blood BLOOD SPECIMEN / Unknown 02/20/2024 10:47 AM CDT 02/20/2024 Narrative Resulting Agency Comment Lab Testing performed at: [facility] [address] [phone] Nancy Cotto MD LAB - CHEMISTRY TOBY BILLY Performing Organization Address [facility]/ZIP Co de Phone Number [facility] INSURANCE BILL [address] [place] [address] * (ABNORMAL) COMPLEMENT C3 (02/20/2024 10:47 AM CDT) Complement C3 187(H) 82 - 167 mg/dL [facility] INSURANCE BILL Blood BLOOD SPECIMEN / Unknown 02/20/2024 10:47 AM CDT 02/20/2024 Narrative Resulting Agency Comment Lab Testing performed at: [facility] [address] [facility] [id number] Nancy Cotto MD LAB - CHEMISTRY TOBY BILLY Performing Organization Address [facility]/ZIP Co de Phone Number [facility] INSURANCE BILL [address] [place] [address] * MERLIN PANEL COMPREHENSIVE (02/20/2024 10:46 AM CDT) Anti-dsDNA Quantitative <1 0 - 9 IU/mL [facility] INSURANCE BILL Comment: Negative <5 Equivocal 5 - 9 Positive >9 BRAIDING OPERATOR Antibody 0.2 0.0 - 0.9 AI [facility] [...] See Below [facility] INSURANCE BILL Comment: Autoantibody Disease Association Condition Frequency --------- Antinuclear Antibody, SLE, mixed connective Direct (MERLIN-D) tissue diseases --------- dsDNA SLE 40 - 60% --------- Chromatin Drug induced SLE 90% SLE 48 - 97% --------- SSA (Ro) SLE 25 - 35% Sjogren's Syndrome 40 - 70% Lupus 100% --------- SSB (La) SLE 10% Sjogren's Syndrome 30% --------- Sm (anti-Tellez) SLE 15 - 30% --------- BRAIDING OPERATOR Mixed Connective Tissue Disease 95% (U1 nRNP, SLE 30 - 50% anti-ribonucleoprotein) Polymyositis and/or Dermatomyositis 20% --------- Scl-70 (antiDNA Scleroderma (diffuse) 20 - 35% topoisomerase) Crest 13% --------- Lorna-1 Polymyositis and/or Dermatomyositis 20 - 40% --------- Centromere B Scleroderma - Crest variant 80% Blood BLOOD SPECIMEN / Unknown 02/20/2024 10:46 AM CDT 02/20/2024 Narrative Resulting Agency Comment Lab Testing performed at: [facility] [address] [id number] Nancy Cotto MD LAB - SEROLOGY ORDER ROLANDA [facility] INSURANCE BILL [address] [place] [address] * ANCA VASCULITIS PANEL (02/20/2024 10:46 AM [...] be based solely on ANCA IFA results. The International ANCA [employer] Consensus recommends follow up testing of positive sera with both CA-3 and MPO-ANCA enzyme immunoassays. As many as [...] Resulting Agency Comment Lab Testing performed at: [address] [phone] Nancy Cotto MD LAB - CHEMISTRY TOBY BILLY [facility] [address] [place] [address] * THIOPURINE METHYLTRANSFERASE (02/20/2024 10:46 AM CDT) TPMT Activity 25.6 Units/mL RBC [facility] Comment: Reference Range: Normal: 15.1 - 26.4 Heterozygous for low TPMT variant: 6.3 - 15.0 Homozygous for low TPMT variant: <6.3 Interpretation [facility] INSURANCE BILL Comment: The above results can be interpreted as Normal for red blood cell Thiopurine Methyltransferase activity. For patients having an intrinsic low level of TPMT, recent RBC transfusion can variably increase their assayed enzymatic activity depending on the amount and circulating half-life of the transfused red blood cells. This test was developed and its performance characteristics determined by [facility]. It has not been cleared or approved by the Food and Drug Administration. This case has been reviewed, approved, interpreted and electronically signed by Kodi Weldon, PhD, [facility]. Methodology [facility] Comment: Enzymatic Endpoint/Liquid Chromatography - Tandem Mass Spectrometry (LC-MS/MS) Blood BLOOD SPECIMEN / Unknown 02/20/2024 10:46 AM CDT 02/20/2024 Narrative Resulting Agency Comment Lab Testing performed at: [facility] [phone] Nancy Cotto MD LAB - CHEMISTRY TOBY BILLY Performing Organization Address City/[facility]/ZIP Co de Phone Number [facility] [address] [place] [address] * IRON + TIBC PANEL (02/20/2024 10:46 [...] Resulting Agency Comment Lab Testing performed at: [facility] [place] [address] [facility] [id number] Nancy Cotto MD LAB - CHEMISTRY TOBY BILLY Performing Organization Address City/[facility]/ZIP Co de Phone Number [facility] INSURANCE BILL [address] [place] [address] * CBC W AUTO DIFFERENTIAL (02/03/2024 1:03 AM CDT) Only the most recent of2 resultswithin the time period is included. WBC 7.8 4.0 - 10.7 x10E9/L 02/03/2024 1:27 AM CDT [facility] RBC Count 5.03 3.90 - 5.20 x10E12/L 02/03/2024 1:27 AM CDT [facility] Hemoglobin 15.3 11.9 - 15.8 g/dL 02/03/2024 1:27 AM CDT [facility] Hematocrit 42.7 34.8 - 46.1 % 02/03/2024 1:27 AM CDT [facility] MCV 84.9 80.0 - 98.0 fL 02/03/2024 1:27 AM [facility] MCH 30.4 26.7 - 33.6 pg 02/03/2024 1:27 AM [facility] MCHC 35.8 31.7 - 36.3 g/dL 02/03/2024 1:27 AM [facility] RDW-CV 11.7 11.3 - 14.8 % 02/03/2024 1:27 AM [facility] Platelet Count 273 150 - 420 x10E9/L 02/03/2024 1:27 AM [facility] MPV 9.4 7.8 - 11.4 fL 02/03/2024 1:27 AM [facility] Neutrophil % 61.8 41.0 - 74.0 % 02/03/2024 1:27 AM [facility] Lymphocyte % 28.0 17.0 - 47.0 % 02/03/2024 1:27 AM [facility] Monocyte % 7.7 3.0 - 11.0 % 02/03/2024 1:27 AM [facility] Eosinophil % 2.0 0.0 - 7.0 % 02/03/2024 1:27 AM [facility] Basophil % 0.4 0.0 - 1.6 % 02/03/2024 1:27 AM [facility] Immature Granulocytes % 0.1 0.0 - 1.0 % 02/03/2024 1:27 AM [facility] Neutrophil Absolute 4.84 1.60 - 7.50 x10E9/L 02/03/2024 1:27 AM [facility] Lymphocyte Absolute 2.19 1.00 - 4.40 x10E9/L 02/03/2024 1:27 AM [facility] Monocyte Absolute 0.60 0.15 - 1.00 x10E9/L 02/03/2024 1:27 AM [facility] Eosinophil Absolute 0.16 0.00 - 0.60 x10E9/L 02/03/2024 1:27 AM [facility] Basophil Absolute 0.03 0.00 - 0.13 x10E9/L 02/03/2024 1:27 AM [facility] Blood BLOOD SPECIMEN / Unknown Venipuncture / Unknown 02/03/2024 1:03 AM CDT 02/03/2024 1:17 AM CDT Kaylee Reyes MD LAB - HEMATOLOGY ORD ERABLES [facility] [address] [place] [address], [facility] [phone] * (ABNORMAL) COMPREHENSIVE METABOLIC PANEL (02/03/2024 1:03 AM CDT) Only the most recent of2 resultswithin the time period is included. BUN 9 7 - 26 mg/dL 02/03/2024 1:45 AM [facility] Creatinine 0.64 0.56 - 0.96 mg/dL 02/03/2024 1:45 AM [facility] Sodium 139 136 - 145 mmol/L 02/03/2024 1:45 AM [facility] Potassium 3.4(L) 3.5 - 4.5 mmol/L 02/03/2024 1:45 AM [facility] Chloride 107 98 - 107 mmol/L 02/03/2024 1:45 AM [facility] CO2 21(L) 22 - 29 mmol/L 02/03/2024 1:45 AM [facility] Glucose 78 70 - 115 mg/dL 02/03/2024 1:45 AM [facility] Calcium 9.9 8.4 - 10.2 mg/dL 02/03/2024 1:45 AM [facility] Protein Total 7.7 6.0 - 8.3 g/dL 02/03/2024 1:45 AM [facility] Albumin 4.4 3.4 - 5.0 g/dL 02/03/2024 1:45 AM [facility] Bilirubin Total 0.4 0.2 - 1.2 mg/dL 02/03/2024 1:45 AM [facility] Alkaline Phosphatase 81 40 - 150 U/L 02/03/2024 1:45 AM [facility] ALT 58(H) 5 - 55 U/L 02/03/2024 1:45 AM [facility] AST 33 5 - 34 U/L 02/03/2024 1:45 AM [facility] Anion Gap 11 6 - 16 02/03/2024 1:45 AM [facility] BUN/Creatinine Ratio 14 7 - 23 02/03/2024 1:45 AM [facility] Osmolality Calculated 286 275 - 295 mOsm/kg 02/03/2024 1:45 AM [facility] Albumin/Globulin Ratio 1.3 1.1 - 2.3 02/03/2024 1:45 AM [facility] eGFR by CKD-EPI >90 >=90 mL/min/1.7 3 m2 02/03/2024 1:45 AM [facility] Blood BLOOD SPECIMEN / Unknown Venipuncture / Unknown 02/03/2024 1:03 AM CDT 02/03/2024 1:17 AM [facility] Kaylee Reyes MD LAB - CHEMISTRY ORDRei [facility] Organization Address City/State/ZIP Co de Phone Number [facility] [address] [place] [phone], [facility] [phone] * (ABNORMAL) URINALYSIS W/MICROSCOPIC NO CULTURE (02/03/2024 12:57 AM T) Color UA Yellow Straw, Yellow 02/03/2024 1:40 AM [facility] Clarity UA t Cloudy(A) Clear 02/03/2024 1:40 AM [facility] Specific [place] UA 1.020 1.005 - 1.030 02/03/2024 1:40 AM [facility] pH UA 5.0 5.0 - 8.0 pH 02/03/2024 1:40 AM [facility] Protein UA Negative Negative 02/03/2024 1:40 AM [facility] Glucose UA Negative Negative 02/03/2024 1:40 AM [facility] Ketone UA Negative Negative 02/03/2024 1:40 AM [facility] Bilirubin UA Negative Negative 02/03/2024 1:40 AM CDT [facility] Blood UA Negative Negative 02/03/2024 1:40 AM CDT [facility] Nitrite UA Negative Negative 02/03/2024 1:40 AM CDT [facility] Leukocyte Esterase Negative Negative 02/03/2024 1:40 AM CDT [facility] Urobilinogen UA Negative Negative mg/dL 02/03/2024 1:40 AM CDT [facility] RBC UA 6-10(A) None Seen, 0-2, 3-5 /HPF 02/03/2024 1:40 AM CDT [facility] WBC UA 0-5 None Seen, 0-5 /HPF 02/03/2024 1:40 AM T [facility] Squamous Epithelial Cells UA 6-10(A) None Seen, 0-2, 3-5 /HPF 02/03/2024 1:40 AM CDT [facility] Mucus UA 2+ /LPF 02/03/2024 1:40 AM CDT [facility] Urine URINE SPECIMEN OBTAINED BY CLEAN CATCH PROCEDURE / Unknown Collection / Unknown 02/03/2024 12:57 AM CDT 02/03/2024 1:13 AM CDT Narrative [facility] - 02/03/2024 1:40 AM CDT Kaylee Reyes MD LAB - URINALYSIS ORD ERABLES [facility] [address] [place] [address], [facility] [phone] * CT RENAL STONE (02/03/2024 12:19 AM [...] > Dictated by Samy Johnson MD, PhD (sales and marketing vice president). I, Haylee Lopez MD have personally reviewed and interpreted this examination/study. > Interpreting Provider: Haylee Lopez MD on 02/03/2024 10:15 AM Narrative 02/03/2024 10:15 AM CDT PROCEDURE: CT RENAL STONE, DATE/TIME OF EXAM: 02/03/2024 12:19 AM, LOCATION [facility] INDICATION: R10.9: Flank pain ADDITIONAL CLINICAL INFORMATION: [...] DATE/TIME OF EXAM: 02/03/2024 12:19 AM, LOCATION [facility] INDICATION: R10.9: Flank pain ADDITIONAL CLINICAL INFORMATION: [...] > Dictated by Samy Johnson MD, PhD (sales and marketing vice president). I, Haylee Lopez MD have personally reviewed and interpreted this examination/study. > Interpreting Provider: Haylee Lopez MD on 410:15 AM Kaylee Reyes MD CT ORDERABLES * HCG URINE QUAL POCT NOTIFICATION (06/04/2019 1:02 PM CDT) Comment Notification Label Only - See Separate Report 06/04/2019 1:02 PM CDT [facility] Urine URINE / Unknown 11:47 AM CDT Tarun Garcia MD LAB - URINALYSIS OR DERABLES [facility] [address] [place] [address] * CT ABDOMEN AND PELVIS WITH IV [...] on 06/04/2019 at 1:11 PM Luna Durant PHYSICAL CHEMIST-EXECUTIVE ACCOUNT MANAGER CT ORDERABLES * URINALYSIS REFLEX MICROSCOPIC REFLEX CULTURE (06/04/2019 12:07 PM CDT) Color UA Straw Straw, Yellow 06/04/2019 12:14 PM CDT [facility] [facility] Clarity UA Clear Clear 06/04/2019 12:14 PM CDT [facility] Glucose UA Negative Negative 06/04/2019 12:14 PM [facility] Bilirubin UA Negative Negative 06/04/2019 12:14 PM [facility] Ketone UA Negative Negative 06/04/2019 12:14 PM [facility] Specific [place] UA 1.006 1.005 - 1.030 06/04/2019 12:14 PM CDT [facility] Blood UA Negative Negative 06/04/2019 12:14 PM [facility] pH UA 7.0 5.0 - 8.0 pH 06/04/2019 12:14 PM [facility] Protein UA Negative Negative 06/04/2019 12:14 PM CDT [facility] Urobilinogen UA Negative Negative mg/dL 06/04/2019 12:14 PM CDT [facility] Nitrite UA Negative Negative 06/04/2019 12:14 PM CDT [facility] Leukocyte UA Negative Negative 06/04/2019 12:14 PM [facility] Urine Microscopy Urine microscopy not indicated 06/04/2019 12:14 PM [facility] Reflex Status Culture not indicated 06/04/2019 12:14 PM CDT [facility] Urine URINE SPECIMEN OBTAINED BY CLEAN CATCH PROCEDURE / Unknown Collection / Unknown 06/04/2019 12:07 PM CDT 06/04/2019 12:09 PM CDT Narrative [facility] - 06/04/2019 12:14 PM CDT Tarun Garcia MD LAB - URINALYSIS OR DERABLES Performing Organization Address City/[facility]/ZIP Co de Phone Number [facility] [address] [place] [address] * HCG URINE QUALITATIVE - POCT (IP) INTERFACED (06/04/2019 12:06 PM CDT) HCG Qual Urine Negative Negative 06/04/2019 12:12 PM CDT [facility] Urine URINE / Unknown 06/04/2019 1 2:06 PM CDT 06/04/2019 12:12 PM CDT Provider Unknown LAB - POINT OF CARE ORDERABLES Performing Organization Address City/[facility]/ZIP Co de Phone Number [facility] [address] [place] [address] * LIPASE BLOOD (06/04/2019 11:56 AM CDT) Lipase 29 8 - 78 U/L 06/04/2019 12:59 PM CDT [facility] Blood BLOOD SPECIMEN / Unknown Venipuncture / Unknown 06/04/2019 11:56 AM CDT 06/04/2019 12:06 PM CDT Luna Durant PHYSICAL CHEMIST-EXECUTIVE ACCOUNT MANAGER LAB - CHEMISTRY O RDERABLES [facility] [address] [place] [address] * RPR (08/27/2016 3:46 PM CROP SUPERVISOR) RPR Non Reactive Non Reactive [facility] ACCOUNT BILL Blood BLOOD SPECIMEN / Unknown 08/27/2016 3:46 PM CROP SUPERVISOR 08/27/2016 Narrative Resulting Agency Comment [facility] [address] [id number] Albert Hutchinson MD LAB - CHEMISTRY TOBY BILLY Performing Organization Address City/[facility]/ZIP Co de Phone Number [facility] ACCOUNT BILL [address] [place] [address] * VITAMIN B6 (08/27/2016 3:46 PM CROP SUPERVISOR) Vitamin B6 14.9 2.0 - 32.8 ug/L [facility] ACCOUNT BILL Blood BLOOD SPECIMEN / Unknown 08/27/2016 3:46 PM CROP SUPERVISOR 08/27/2016 Narrative Resulting Agency Comment [facility] [address] [id number] Albert Hutchinson MD LAB - CHEMISTRY TOBY BILLY Performing Organization Address [facility] Co de Phone Number [facility] ACCOUNT BILL [address] [place] [address] * VITAMIN B12 FOLATE PANEL (08/27/2016 3:46 PM CROP SUPERVISOR) Vitamin B12 879 211 - 911 pg/mL [facility] ACCOUNT BILL Folate 13.6 3.1 - 17.5 ng/mL [facility] ACCOUNT BILL Blood BLOOD SPECIMEN / Unknown 08/27/2016 3:46 PM CROP SUPERVISOR 08/27/2016 Narrative Resulting Agency Comment [facility] [address] [address] [phone] Albert Hutchinson MD LAB - CHEMISTRY TOBY BILLY Performing Organization Address City/[facility] Co de Phone Number [facility] ACCOUNT BILL [address] [place] [address] * (ABNORMAL) TSH (08/27/2016 3:46 PM CROP SUPERVISOR) TSH 0.280(L) 0.358 - 3.740 uIU/mL [facility] ACCOUNT BILL Blood BLOOD SPECIMEN / Unknown 08/27/2016 3:46 PM CROP SUPERVISOR 08/27/2016 Narrative Resulting Agency Comment [facility] [address] [address] [id number] Albert Hutchinson MD LAB - CHEMISTRY DARIARei WENCESLAO [facility] ACCOUNT [place] [place] [address] * IMAGING/RADIOLOGY/XRAY RESULTS ORDER (10/20/2009 6:02 AM CROP SUPERVISOR) Anatomical Region Laterality Modality Other Narrative 10/20/2009 6:02 AM CROP SUPERVISOR Ordered by an unspecified provider. Transcriptions Document, Scanned - 09/20/2009 12:00 AM CROP SUPERVISOR Scanned Document IMAGING * CHROMOSOME ANALYSIS AMNIO PANEL (08/31/2009 12:00 PM CROP SUPERVISOR) Chromosome Analysis Amniotic Fluid See Scanned Report [facility] Comment Amniotic Fluid [facility] AMNIOTIC FLUID SPECIMEN / Unknown 08/31/2009 12:00 PM CROP SUPERVISOR 08/31/2009 12:40 PM CROP SUPERVISOR Arvin Anderson MD LAB - PATHOLOGY/CYTO LOGY ORDERABLES [facility] [address] [place] [address] Care Teams Rn Oncology Research Relationship Specialty Start Date End Date Damian Sadler MD PCP - General Internal Medicine 07/04/16
--- OUTSIDE RECORDS SUMMARY | 2024-10-17 22:00 | XMS_ITS | Referral Summary ---
Author Organization [facility] al Address [address] [place] [address] Care Team Providers Care Railroad Design Consultant Name Role Phone Lucas Carter DO Primary Care Provider [phone] Allergies Active Allergy Reactions Criticality Noted Date Comments Hydralazine Headache,Vomiting Low 01/21/2024 Ketorolac Hives,Itching Medium 10/17/2017 Tramadol Hives,Urticaria Medium 08/27/2016 Medications omeprazole (PriLOSEC) 20 mg capsuleIndications :Treatment of Non-Bleeding Gastric Disorder Take 1 capsule (20 mg total) by mouth mailer 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 Active MULTIVIT-MINERALS/ FERROUS FUM (MULTI VITAMIN ORAL)Indications:h ealth Take 1 tablet by mouth mailer 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 Active ondansetron ODT (ZOFRAN-ODT) 4 [...] 1 tablet (25 mg total) by mouth mailer 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 Active nebivoloL (BYSTOLIC) 10 mg [...] mg total) by mouth nightly 03/03/20 Active ibuprofen 200 mg tab/cap Take 2 tablet/capsule (400 mg total) by mouth every 6 (six) hours as needed for pain Active HYDROcodone-acetam inophen (NORCO) 5-325 mg per tabletIndications: Pain Take 1 tablet by mouth every 6 (six) hours as needed for pain 8 tablet 07/01/20 24 Active pregabalin (LYRICA) 150 mg capsule TAKE 1 CAPSULE(150 MG) BY MOUTH TWICE DAILY 60 capsule 09/14/19 Active Active Problems Problem Noted Date Diagnosed [...] Fracture of head of radius 08/31/2014 Immunizations Immunization Administration Dates Next Due Influenza, Trivalent, Preservative Free, Intramu scular 05/12/2015 Social History Tobacco Use Types Packs/Day Years Used Date Smoking Tobacco: Every Day Cigarettes 0.7 32.9 Started: 11/11/1991 Smokeless Tobacco: Never Tobacco Cessation:Ready [...] on file Legal Sex Female 9:06 PM BULK MATERIALS HANDLING PLANT OPERATOR Gender Identity Female 10/01/2023 8:44 AM BULK MATERIALS HANDLING PLANT OPERATOR Sexual Orientation Straight 10/01/2023 8: 44 AM BULK MATERIALS HANDLING PLANT OPERATOR Last Filed Vital Signs Vital Sign Reading Time Taken Comments Blood Pressure 125/82 06/29/2024 10:05 AM BULK MATERIALS HANDLING PLANT OPERATOR Pulse 75 06/29/2024 10:05 AM BULK MATERIALS HANDLING PLANT OPERATOR Temperature 36.2 C (97.2 F) 06/29/2024 9:28 AM BULK MATERIALS HANDLING PLANT OPERATOR Respiratory Rate 15 06/29/2024 10:0 5 AM BULK MATERIALS HANDLING PLANT OPERATOR Oxygen Saturation 96% 06/29/2024 10: 05 AM BULK MATERIALS HANDLING PLANT OPERATOR Inhaled Oxygen Concentration - - Weight 83.4 kg (183 lb 12.8 oz) 06/29/2024 7:50 AM BULK MATERIALS HANDLING PLANT OPERATOR Height 160 cm (5' 3 ) 06/29/2024 7:50 AM BULK MATERIALS HANDLING PLANT OPERATOR Body Mass Index 32.56 06/29/2024 7:50 AM BULK MATERIALS HANDLING PLANT OPERATOR Plan of Treatment Not on file Goals [...] home safety. Medical Devices Implanted Type Area Rehabilitation Services Director Device Identifier Shelf Expiration Date Model / Serial / Lot Screw Left: Elbow Insurance IDPA [facility] CHOICE PLUS [facility] Advance Directives For more information, please contact: [phone] * Full Code (Latest Code Status on File) Date Activated Date Inactivated Comments 08/15/2022 3:10 PM 08/18/2022 6:09 PM Care Teams Railroad Design Consultant Relationship Specialty Start Date End Date Lucas Carter DO PCP - General Internal Medicine 08/15/22
--- OUTSIDE RECORDS SUMMARY | 2024-10-17 22:00 | XMS_ITS | Clinical Summary ---
Author Organization [facility] al Address [address] [place] [address] Care Team Providers Care Beauty Shop Manager Name Role Phone Lucas Carter DO Primary Care Provider [phone] Allergies Active Allergy Reactions Criticality Noted Date Comments Hydralazine Headache,Vomiting Low 01/21/2024 Ketorolac Hives,Itching Medium 10/17/2017 Tramadol Hives,Urticaria Medium 08/27/2016 Medications omeprazole (PriLOSEC) 20 mg capsuleIndications :Treatment of Non-Bleeding Gastric Disorder Take 1 capsule (20 mg total) by mouth early intervention specialist 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 Active MULTIVIT-MINERALS/ FERROUS FUM (MULTI VITAMIN ORAL)Indications:h ealth Take 1 tablet by mouth early intervention specialist 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 Active ondansetron ODT (ZOFRAN-ODT) 4 [...] tablet (25 mg total) by mouth early intervention specialist 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 Active nebivoloL (BYSTOLIC) 10 mg [...] Grandfather Beka Sr. Hearing loss Maternal Grandmother Cinthya Alcohol abuse Mother Lisae Arthritis Mother Melelizabethe COPD Mother Melodye Depression Mother Melelizabethe Hearing loss Mother Melodye Obesity Mother Melelizabethe Stroke Paternal Grandfather Dusty Obesity Sister Sarai Relation Name Status Comments Brother Dusty Father Israel Maternal Grandfather Beka Sr. Maternal Grandmother [place] Mother Gretchen Paternal Grandfather Dusty Sister Sarai Social History [...] on file Legal Sex Female 9:06 PM CLINICAL SCIENTIST Gender Identity Female 10/01/2023 8:44 AM CLINICAL SCIENTIST Sexual Orientation Straight 10/01/2023 8: 44 AM CLINICAL SCIENTIST Obstetrics History Para Term AB IAB SAB [...] Comments Blood Pressure 125/82 06/29/2024 10:05 AM CLINICAL SCIENTIST Pulse 75 06/29/2024 10:05 AM CLINICAL SCIENTIST Temperature 36.2 C (97.2 F) 06/29/2024 9:28 AM CLINICAL SCIENTIST Respiratory Rate 15 06/29/2024 10:0 5 AM CLINICAL SCIENTIST Oxygen Saturation 96% 06/29/2024 10: 05 AM CLINICAL SCIENTIST Inhaled Oxygen Concentration - - Weight 83.4 kg (183 lb 12.8 oz) 06/29/2024 7:50 AM CLINICAL SCIENTIST Height 160 cm (5' 3 ) 06/29/2024 7:50 AM CLINICAL SCIENTIST Body Mass Index 32.56 06/29/2024 7:50 AM CLINICAL SCIENTIST Plan of Treatment Health Maintenance Due Date Last Done Comments Breast Cancer Screening-Mammogram 1979 Colon Cancer Screening-Colonoscopy 1979 Depression Screening 1979 Hepatitis C Screening 1979 DTaP/Tdap/Td Vaccine (1 - Tdap) 1990 Hepatitis B Screening 1997 Pneumococcal vaccine <65 (1 of 2 - PCV) 1998 Regular Well Visit/Exam 18-64 10/08/2020 10/08/2019 Influenza [...] on stairs Contact your local community or [facility] for information on exercise, fall prevention programs, or options for improving home safety. Medical Devices Implanted Type Area Portfolio Assistant Device Identifier Shelf Expiration Date Model / Serial / Lot Screw Left: Elbow Insurance IDPA [facility] CHOICE PLUS [facility] HMO/PPO Address: [address] [address] [place] [address] [facility] Advance Directives For more information, please contact: [phone] * Full Code (Latest Code Status on File) Date Activated Date Inactivated Comments 08/15/2022 3:10 PM 08/18/2022 6:09 PM Care Teams Beauty Shop Manager Relationship Specialty Start Date End Date Lucas Carter DO PCP - General Internal Medicine 08/15/22
--- OUTSIDE RECORDS SUMMARY | 2024-10-17 22:00 | XMS_ITS | CONTINUITY OF CARE DOCUMENT ---
Author Name [email or web address] Address Unknown Organization [facility] Address [address] [place] [address] Phone [phone] Care Team Providers Care Distribution Driver Name Role Phone William CURIEL, Herlinda Unavailable SHAWNEE CURIEL, NABIL Schmidt Unavailable INSURANCE PROVIDERS Payer name Policy type / Coverage type Bj red libertarian [place] [employer] Medicaid [id number] [facility] [id number]
--- OUTSIDE RECORDS SUMMARY | 2024-10-17 22:00 | XMS_ITS | Clinical Summary ---
Author Organization [facility] Address [address] [place] [address] Care Team Providers Care Undercar Specialist Name Role Phone Damian Sadler MD Primary Care Provider [phone] Source Comments [facility],non-owned Affiliates and Associated Physician Practices is amultiple site organization consisting of ambulatory clinics and hospital sitesin [place], [place], [place] and [place]. This disclosure is being madepursuant to the Care Everywhere program and may not contain all information available regarding this patient. Last updated 18.[facility] Allergies Active Allergy Reactions Criticality Noted Date [...] TESTING 1979 MAMMOGRAM 1979 PAP SMEAR 1979 HIV SCREENING 1994 DTAP/TDAP/TD VACCINES (1 - Tdap) 1998 HEPATITIS B VACCINE (1 of 3 - 19+ 3-dose series) 1998 PNEUMOCOCCAL VACCINE (1 of 2 - PCV) 1998 COVID-19 VACCINE (1 - 2023-2 5 season) 2024 INFLUENZA VACCINE (#1) 2024 5, 05/12/2015 DEPRESSION SCREENING 08/12/2024 SCREENING FOR DIABETES 02/02/2027 4, 06/04/2019 ZOSTER VACCINE (1 of 2) 2029 HEPATITIS C SCREENING Completed 02/20/2024 HIB VACCINE Aged Out No longer eligi ble based on patient's age to complete this topic HPV VACCINE Aged Out No longer eligi ble based on patient's age to complete this topic MENINGOCOCCAL (Group B) VACCINE Aged Out No longer eligible b ased on patient's age to complete this topic [...] Agency Comment Lab Testing performed at: [facility] [address] [id number] Nancy Cotto MD LAB - CHEMISTRY TOBY BILLY [facility] INSURANCE BILL [address] [place] [address] * (ABNORMAL) COMPREHENSIVE METABOLIC PANEL (02/03/2024 1:03 AM [facility]) BUN 9 7 - 26 mg/dL 02/03/2024 1:45 AM [facility] Creatinine 0.64 0.56 - 0.96 mg/dL 02/03/2024 1:45 AM [facility] Sodium 139 136 - 145 mmol/L 02/03/2024 1:45 AM [facility] Potassium 3.4(L) 3.5 - 4.5 mmol/L 02/03/2024 1:45 AM [facility] Chloride 107 98 - 107 mmol/L 02/03/2024 1:45 AM [facility] CO2 21(L) 22 - 29 mmol/L 02/03/2024 1:45 AM [facility] Glucose 78 70 - 115 mg/dL 02/03/2024 1:45 AM [facility] Calcium 9.9 8.4 - 10.2 mg/dL 02/03/2024 1:45 AM [facility] Protein Total 7.7 6.0 - 8.3 g/dL 02/03/2024 1:45 AM [facility] Albumin 4.4 3.4 - 5.0 g/dL 02/03/2024 1:45 AM [facility] Bilirubin Total 0.4 0.2 - 1.2 mg/dL 02/03/2024 1:45 AM [facility] Alkaline Phosphatase 81 40 - 150 U/L 02/03/2024 1:45 AM [facility] ALT 58(H) 5 - 55 U/L 02/03/2024 1:45 AM [facility] AST 33 5 - 34 U/L 02/03/2024 1:45 AM [facility] Anion Gap 11 6 - 16 02/03/2024 1:45 AM [facility] BUN/Creatinine Ratio 14 7 - 23 02/03/2024 1:45 AM [facility] Osmolality Calculated 286 275 - 295 mOsm/kg 02/03/2024 1:45 AM [facility] Albumin/Globulin Ratio 1.3 1.1 - 2.3 02/03/2024 1:45 AM CDT [facility] eGFR by CKD-EPI >90 >=90 mL/min/1.7 3 m2 02/03/2024 1:45 AM CDT [facility] Blood BLOOD SPECIMEN / Unknown Venipuncture / Unknown 02/03/2024 1:03 AM CDT 02/03/2024 1:17 AM CDT Kaylee Reyes MD LAB - CHEMISTRY TOBY BILLY [facility] [address] [place] [address], [facility] [phone] from Last 3 Months or Most Recently Relevant to Health Maintenance Care Teams Undercar Specialist Relationship Specialty Start Date End Date Damian Sadler MD PCP - General Internal Medicine 07/04/16
--- OUTSIDE RECORDS SUMMARY | 2024-10-17 22:00 | XMS_ITS | Referral Summary ---
Author Organization [facility] Address [address] [place] [address] Care Team Providers Care Account Services Representative Name Role Phone Damian Sadler MD Primary Care Provider [phone] Source Comments [facility],non-owned Affiliates and Associated Physician Practices is amultiple site organization consisting of ambulatory clinics and hospital sitesin [place], [place], [place] and [place]. This disclosure is being madepursuant to the Care Everywhere program and may not contain all information available regarding this patient. Last updated 18.[facility] Allergies Active Allergy Reactions Criticality Noted Date [...] Resulting Agency Comment [facility]: [facility] [address] [id number] Nancy Cotto MD LAB - CHEMISTRY TOBY BILLY [facility] INSURANCE BILL [address] [place] [address] * (ABNORMAL) COMPREHENSIVE METABOLIC PANEL (02/03/2024 1:03 AM CDT) BUN 9 7 - 26 mg/dL 02/03/2024 1:45 AM [facility] Creatinine 0.64 0.56 - 0.96 mg/dL 02/03/2024 1:45 AM [facility] Sodium 139 136 - 145 mmol/L 02/03/2024 1:45 AM [facility] Potassium 3.4(L) 3.5 - 4.5 mmol/L 02/03/2024 1:45 AM [facility] Chloride 107 98 - 107 mmol/L 02/03/2024 1:45 AM [facility] CO2 21(L) 22 - 29 mmol/L 02/03/2024 1:45 AM [facility] Glucose 78 70 - 115 mg/dL 02/03/2024 1:45 AM [facility] Calcium 9.9 8.4 - 10.2 mg/dL 02/03/2024 1:45 AM [facility] Protein Total 7.7 6.0 - 8.3 g/dL 02/03/2024 1:45 AM [facility] Albumin 4.4 3.4 - 5.0 g/dL 02/03/2024 1:45 AM [facility] Bilirubin Total 0.4 0.2 - 1.2 mg/dL 02/03/2024 1:45 AM [facility] Alkaline Phosphatase 81 40 - 150 U/L 02/03/2024 1:45 AM [facility] ALT 58(H) 5 - 55 U/L 02/03/2024 1:45 AM [facility] AST 33 5 - 34 U/L 02/03/2024 1:45 AM [facility] Anion Gap 11 6 - 16 02/03/2024 1:45 AM [facility] BUN/Creatinine Ratio 14 7 - 23 02/03/2024 1:45 AM [facility] Osmolality Calculated 286 275 - 295 mOsm/kg 02/03/2024 1:45 AM [facility] Albumin/Globulin Ratio 1.3 1.1 - 2.3 02/03/2024 1:45 AM [facility] eGFR by CKD-EPI >90 >=90 mL/min/1.7 3 m2 02/03/2024 1:45 AM [facility] Blood BLOOD SPECIMEN / Unknown Venipuncture / Unknown 02/03/2024 1:03 AM CDT 02/03/2024 1:17 AM [facility] Kaylee Reyes MD LAB - CHEMISTRY TOBY BILLY [facility] Organization Address City/State/ZIP Co de Phone Number [facility] [address] [place] [address], [facility] [phone] from Last 3 Months or Most Recently Relevant to Health Maintenance Care Teams Account Services Representative Relationship Specialty Start Date End Date Damian Sadler MD PCP - General Internal Medicine 07/04/16
[2024-10-17 22:06] VITALS: BP 230/113; PULSE 77; RESP 18; TEMP 36.4; O2SAT 100
--- OUTSIDE RECORDS SUMMARY | 2024-10-17 22:25 | XMS_ITS | Referral Summary ---
Author Organization [facility] al Address [address] [place] [address] Care Team Providers Care Mobile Plant Operators Name Role Phone Lucas Carter DO Primary Care Provider [phone] Allergies Active Allergy Reactions Criticality Noted Date Comments Hydralazine Headache,Vomiting Low 01/21/2024 Ketorolac Hives,Itching Medium 10/17/2017 Tramadol Hives,Urticaria Medium 08/27/2016 Medications omeprazole (PriLOSEC) 20 mg capsuleIndications :Treatment of Non-Bleeding Gastric Disorder Take 1 capsule (20 mg total) by mouth sap gatherer 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 Active MULTIVIT-MINERALS/ FERROUS FUM (MULTI VITAMIN ORAL)Indications:h ealth Take 1 tablet by mouth sap gatherer 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 Active ondansetron ODT (ZOFRAN-ODT) 4 [...] 1 tablet (25 mg total) by mouth sap gatherer 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 Active nebivoloL (BYSTOLIC) 10 mg [...] on file Legal Sex Female 9:06 PM PREKINDERGARTEN TEACHER Gender Identity Female 10/01/2023 8:44 AM PREKINDERGARTEN TEACHER Sexual Orientation Straight 10/01/2023 8: 44 AM PREKINDERGARTEN TEACHER Last Filed Vital Signs Vital Sign Reading Time Taken Comments Blood Pressure 125/82 06/29/2024 10:05 AM PREKINDERGARTEN TEACHER Pulse 75 06/29/2024 10:05 AM PREKINDERGARTEN TEACHER Temperature 36.2 C (97.2 F) 06/29/2024 9:28 AM PREKINDERGARTEN TEACHER Respiratory Rate 15 06/29/2024 10:0 5 AM PREKINDERGARTEN TEACHER Oxygen Saturation 96% 06/29/2024 10: 05 AM PREKINDERGARTEN TEACHER Inhaled Oxygen Concentration - - Weight 83.4 kg (183 lb 12.8 oz) 06/29/2024 7:50 AM PREKINDERGARTEN TEACHER Height 160 cm (5' 3 ) 06/29/2024 7:50 AM PREKINDERGARTEN TEACHER Body Mass Index 32.56 06/29/2024 7:50 AM PREKINDERGARTEN TEACHER Plan of Treatment Not on file Goals [...] home safety. Medical Devices Implanted Type Area Wind Turbine Blade Repair Technician Device Identifier Shelf Expiration Date Model / Serial / Lot Screw Left: Elbow Insurance IDPA [facility] CHOICE PLUS [facility] HMO/PPO Address: [address] [address] [place] [address] [facility] Advance Directives For more information, please contact: [phone] * Full Code (Latest Code Status on File) Date Activated Date Inactivated Comments 08/15/2022 3:10 PM 08/18/2022 6:09 PM Care Teams Mobile Plant Operators Relationship Specialty Start Date End Date Lucas Carter DO PCP - General Internal Medicine 08/15/22
--- OUTSIDE RECORDS SUMMARY | 2024-10-17 22:25 | XMS_ITS | Clinical Summary ---
Author Organization [facility] al Address [address] [place] [address] Care Team Providers Care Pizza Maker Name Role Phone Lucas Carter DO Primary Care Provider [phone] Allergies Active Allergy Reactions Criticality Noted Date Comments Hydralazine Headache,Vomiting Low 01/21/2024 Ketorolac Hives,Itching Medium 10/17/2017 Tramadol Hives,Urticaria Medium 08/27/2016 Medications omeprazole (PriLOSEC) 20 mg capsuleIndications :Treatment of Non-Bleeding Gastric Disorder Take 1 capsule (20 mg total) by mouth timber sizer operator 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 Active MULTIVIT-MINERALS/ FERROUS FUM (MULTI VITAMIN ORAL)Indications:h ealth Take 1 tablet by mouth timber sizer operator 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 Active ondansetron ODT (ZOFRAN-ODT) 4 [...] 1 tablet (25 mg total) by mouth timber sizer operator 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 Active nebivoloL (BYSTOLIC) 10 mg [...] [place] Maternal Grandfather Beka Sr. Maternal Grandmother Davison Mother Gretchen Paternal Grandfather Dusty Sister Sarai [...] file Legal Sex Female 9:06 PM SYSTEMS TECHNOLOGIST Gender Identity Female 10/01/2023 8:44 AM SYSTEMS TECHNOLOGIST Sexual Orientation Straight 10/01/2023 8: 44 AM SYSTEMS TECHNOLOGIST Obstetrics History Para Term AB IAB SAB [...] Comments Blood Pressure 125/82 06/29/2024 10:05 AM SYSTEMS TECHNOLOGIST Pulse 75 06/29/2024 10:05 AM SYSTEMS TECHNOLOGIST Temperature 36.2 C (97.2 F) 06/29/2024 9:28 AM SYSTEMS TECHNOLOGIST Respiratory Rate 15 06/29/2024 10:0 5 AM SYSTEMS TECHNOLOGIST Oxygen Saturation 96% 06/29/2024 10: 05 AM SYSTEMS TECHNOLOGIST Inhaled Oxygen Concentration - - Weight 83.4 kg (183 lb 12.8 oz) 06/29/2024 7:50 AM SYSTEMS TECHNOLOGIST Height 160 cm (5' 3 ) 06/29/2024 7:50 AM SYSTEMS TECHNOLOGIST Body Mass Index 32.56 06/29/2024 7:50 AM SYSTEMS TECHNOLOGIST Plan of Treatment Health Maintenance Due Date [...] on stairs Contact your local community or [facility] for information on exercise, fall prevention programs, or options for improving home safety. Medical Devices Implanted Type Area Service Secretary Device Identifier Shelf Expiration Date Model / Serial / Lot Screw Left: El[employer] Insurance [employer] [facility] CHOICE PLUS [facility] Advance Directives For more information, please contact: [phone] * Full Code (Latest Code Status on File) Date Activated Date Inactivated Comments 08/15/2022 3:10 PM 08/18/2022 6:09 PM Care Teams Pizza Maker Relationship Specialty Start Date End Date Lucas Carter DO PCP - General Internal Medicine 08/15/22
--- OUTSIDE RECORDS SUMMARY | 2024-10-17 22:25 | XMS_ITS | CONTINUITY OF CARE DOCUMENT ---
Author Name [email or web address] Address Unknown Organization [facility] Address [address] [place] [address] Phone [phone] Care Team Providers Care Rack Carrier Name Role Phone William CURIEL, Herlinda Unavailable [phone] [place] CURIEL, NABIL Schmidt Unavailable [phone] INSURANCE PROVIDERS Payer name Policy type / Coverage type Bj red democrat [place] [employer] Medicaid [id number] [facility] [id number]
--- OUTSIDE RECORDS SUMMARY | 2024-10-17 22:25 | XMS_ITS | Clinical Summary ---
Author Organization [facility] [employer] Address [address] [place] [address] Care Team Providers Care Core Sucker Name Role Phone Damian Sadler MD Primary Care Provider Source Comments [facility] [employer],non-owned Affiliates and Associated Physician Practices is amultiple site organization consisting of ambulatory clinics and hospital sitesin [place], [place], [place] and [place]. This disclosure is being madepursuant to the Care Everywhere program and may not contain all information available regarding this patient. Last updated 18.[facility] [employer] Allergies Active Allergy Reactions Criticality Noted Date [...] Resulting Agency Comment Lab Testing performed at: [facility] [address] [id number] Nancy Cotto MD LAB - CHEMISTRY TOBY BILLY [facility] INSURANCE BILL [address] [place] [address] * (ABNORMAL) COMPREHENSIVE METABOLIC PANEL (02/03/2024 1:03 AM [facility]) BUN 9 7 - 26 mg/dL 02/03/2024 1:45 AM [facility] Creatinine 0.64 0.56 - 0.96 mg/dL 02/03/2024 1:45 AM [facility] Sodium 139 136 - 145 mmol/L 02/03/2024 1:45 AM [facility] Potassium 3.4(L) 3.5 - 4.5 mmol/L 02/03/2024 1:45 AM [facility] Chloride 107 98 - 107 mmol/L 02/03/2024 1:45 AM [facility] CO2 21(L) 22 - 29 mmol/L 02/03/2024 1:45 AM [facility] Glucose 78 70 - 115 mg/dL 02/03/2024 1:45 AM [facility] Calcium 9.9 8.4 - 10.2 mg/dL 02/03/2024 1:45 AM [facility] Protein Total 7.7 6.0 - 8.3 g/dL 02/03/2024 1:45 AM [facility] Albumin 4.4 3.4 - 5.0 g/dL 02/03/2024 1:45 AM [facility] Bilirubin Total 0.4 0.2 - 1.2 mg/dL 02/03/2024 1:45 AM [facility] Alkaline Phosphatase 81 40 - 150 U/L 02/03/2024 1:45 AM [facility] ALT 58(H) 5 - 55 U/L 02/03/2024 1:45 AM [facility] AST 33 5 - 34 U/L 02/03/2024 1:45 AM [facility] Anion Gap 11 6 - 16 02/03/2024 1:45 AM [facility] BUN/Creatinine Ratio 14 7 - 23 02/03/2024 1:45 AM [facility] Osmolality Calculated 286 275 - 295 mOsm/kg 02/03/2024 1:45 AM [facility] Albumin/Globulin Ratio 1.3 1.1 - 2.3 02/03/2024 1:45 AM [facility]T [facility] eGFR by CKD-EPI >90 >=90 mL/min/1.7 3 m2 02/03/2024 1:45 AM CDT [facility] Blood BLOOD SPECIMEN / Unknown Venipuncture / Unknown 02/03/2024 1:03 AM CDT 02/03/2024 1:17 AM CDT Kaylee Reyes MD LAB - CHEMISTRY TOBY BILLY [facility] [address] [place] [address], [facility] [phone] from Last 3 Months or Most Recently Relevant to Health Maintenance Care Teams Core Sucker Relationship Specialty Start Date End Date Damian Sadler MD PCP - General Internal Medicine 07/04/16
--- OUTSIDE RECORDS SUMMARY | 2024-10-17 22:25 | XMS_ITS | Referral Summary ---
Author Organization [facility] [employer] Address [address] [place] [address] Care Team Providers Care Garment Looper Name Role Phone Damian Sadler MD Primary Care Provider [phone] Source Comments [facility] [employer],non-owned Affiliates and Associated Physician Practices is amultiple site organization consisting of ambulatory clinics and hospital sitesin [place], [place], [place] and [place]. This disclosure is being madepursuant to the Care Everywhere program and may not contain all information available regarding this patient. Last updated 18.[facility] [employer] Allergies Active Allergy Reactions Criticality Noted Date [...] Resulting Agency Comment Lab Testing performed at: [facility] [address] [facility] [address] [id number] Nancy Cotto MD LAB - CHEMISTRY TOBY BILLY [facility] INSURANCE BILL [address] [place] [address] * (ABNORMAL) COMPREHENSIVE METABOLIC PANEL (02/03/2024 1:03 AM CDT) BUN 9 7 - 26 mg/dL 02/03/2024 1:45 AM [facility] Creatinine 0.64 0.56 - 0.96 mg/dL 02/03/2024 1:45 AM [facility] Sodium 139 136 - 145 mmol/L 02/03/2024 1:45 AM [facility] Potassium 3.4(L) 3.5 - 4.5 mmol/L 02/03/2024 1:45 AM [facility] Chloride 107 98 - 107 mmol/L 02/03/2024 1:45 AM [facility] CO2 21(L) 22 - 29 mmol/L 02/03/2024 1:45 AM [facility] Glucose 78 70 - 115 mg/dL 02/03/2024 1:45 AM [facility] Calcium 9.9 8.4 - 10.2 mg/dL 02/03/2024 1:45 AM [facility] Protein Total 7.7 6.0 - 8.3 g/dL 02/03/2024 1:45 AM [facility] Albumin 4.4 3.4 - 5.0 g/dL 02/03/2024 1:45 AM [facility] Bilirubin Total 0.4 0.2 - 1.2 mg/dL 02/03/2024 1:45 AM [facility] Alkaline Phosphatase 81 40 - 150 U/L 02/03/2024 1:45 AM [facility] ALT 58(H) 5 - 55 U/L 02/03/2024 1:45 AM [facility] AST 33 5 - 34 U/L 02/03/2024 1:45 AM [facility] Anion Gap 11 6 - 16 02/03/2024 1:45 AM [facility] BUN/Creatinine Ratio 14 7 - 23 02/03/2024 1:45 AM [facility] Osmolality Calculated 286 275 - 295 mOsm/kg 02/03/2024 1:45 AM [facility] Albumin/Globulin Ratio 1.3 1.1 - 2.3 02/03/2024 1:45 AM [facility] eGFR by CKD-EPI >90 >=90 mL/min/1.7 3 m2 02/03/2024 1:45 AM [facility] Blood BLOOD SPECIMEN / Unknown Venipuncture / Unknown 02/03/2024 1:03 AM CDT 02/03/2024 1:17 AM [facility] Kaylee Reyes MD LAB - CHEMISTRY TOBY BILLY [facility] Organization Address City/State/ZIP Co de Phone Number [facility] [address] [place] [address], [facility] [phone] from Last 3 Months or Most Recently Relevant to Health Maintenance Care Teams Garment Looper Relationship Specialty Start Date End Date Damian Sadler MD PCP - General Internal Medicine 07/04/16
--- OUTSIDE RECORDS SUMMARY | 2024-10-17 22:25 | XMS_ITS | Patient Health Summary ---
Author Organization [facility] Address [address] [place] [address] Care Team Providers Care Principal Trainer Name Role Phone Damian Sadler MD Primary Care Provider [phone] Note from [facility],non-owned Affiliates and Associated Physician Practices is amultiple site organization consisting of ambulatory clinics and hospital sitesin [place], [place], [place] and [place]. This disclosure is being madepursuant to the Care Everywhere program and may not contain all information available regarding this patient. Last updated 18.[facility] Allergies * Hydralazine(Vomiting) * Ketorolac(Itching) * Tramadol(Urticaria) [...] M54.2: Cervicalgia R53.83: Other fatigue Z79.899: Other detention (current) 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 Additional History: COMPARISON: None. [...] M54.2: Cervicalgia R53.83: Other fatigue Z79.899: Other detention (current) 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 Additional History: COMPARISON: None. [...] M54.2: Cervicalgia. R53.83: Other fatigue. Z79.899: Other ad terminal makeup operator (current) 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. Additional History: COMPARISON: None. [...] M54.2: Cervicalgia. R53.83: Other fatigue. Z79.899: Other ad terminal makeup operator (current) 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. Additional History: COMPARISON: None. [...] M54.2: Cervicalgia. R53.83: Other fatigue. Z79.899: Other detention (current) 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. Additional History: COMPARISON: None. [...] M54.2: Cervicalgia. R53.83: Other fatigue. Z79.899: Other detention (current) 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. Additional History: COMPARISON: None. [...] Resulting Agency Comment Lab Testing performed at: [facility] [address] [facility] [id number] Nancy Cotto MD LAB - CHEMISTRY TBOY BILLY [facility] Organization Address City/State/ZIP Co de Phone Number [facility] INSURANCE BILL [address] [place] [address] * HEPATITIS SCREEN ACUTE ([facility]) (02/20/2024 10:47 [...] Agency Comment Lab Testing performed [facility]: [facility] [address] [facility] [id number] Nancy Cotto MD LAB - CHEMISTRY TOBY BILLY [facility] INSURANCE BILL [address] [place] [address] * RHEUMATOID ARTHRITIS 14-3-3 ETA (02/20/2024 10:47 AM CDT) 14.3.3 eta Protein <0.20 ng/mL [facility] INSURANCE BILL Comment: Reference Range: < 0.20 Comments: 14-3-3 eta protein is a joint-derived, proinflammatory fishing line winding machine operator that is implicated in the joint erosion [...] et al. 14-3-3 eta is a novel fishing line winding machine operator associated with the pathogenesis of rheumatoid arthritis and joint damage. Arthritis Res Ther 2014;16:R99. This test was developed and its performance characteristics determined by [employer]. It has not been cleared or approved by the Food and Drug Administration. Blood BLOOD SPECIMEN / Unknown 02/20/2024 10:47 AM CDT 02/20/2024 Narrative Resulting Agency Comment Lab Testing performed at: [employer] [employer] [address] [place] [address] [id number] Nancy Cotto MD LAB - CHEMISTRY ORDE RABLES Performing Organization Address [facility]/ZIP Co de Phone Number [facility] INSURANCE BILL [address] [place] [address] * INTERPRETATION REFLEXED (02/20/2024 10:47 AM CDT) Interpretation [facility] INSURANCE BILL Comment: Not infected with HCV unless early or acute infection is suspected (which may be delayed in an immunocompromised individual), or other evidence exists to indicate HCV infection. 02/20/2024 10:4 7 AM CDT 02/20/2024 Narrative Resulting Agency Comment Lab Testing performed at: [facility] [address] [facility] [phone] Nancy Cotto MD LAB - SEROLOGY ORDER ROLANDA Performing Organization Address City/[facility] Co de Phone Number [facility] INSURANCE BILL [address] [place] [address] * (ABNORMAL) IMMUNOFIXATION BLOOD (02/20/2024 10:47 AM [...] Agency Comment Lab Testing performed at: [facility] [address] [facility] [phone] Nancy Cotto MD LAB - CHEMISTRY TOBY BILLY [facility] INSURANCE BILL [address] [place] [address] * RHEUMATOID FACTOR BLOOD QUANTITATIVE (02/20/2024 10:47 AM CDT) Rheumatoid Factor <10.0 <14.0 IU/mL [facility] INSURANCE BILL Blood BLOOD SPECIMEN / Unknown 02/20/2024 10:47 AM CDT 02/20/2024 Narrative Resulting Agency Comment Lab Testing performed at: [address] [id number] Nancy Cotto MD LAB - CHEMISTRY TOBY BILLY Performing Organization Address [facility]/ZIP Co de Phone Number [facility] INSURANCE BILL [address] [place] [address] * C-REACTIVE PROTEIN (02/20/2024 10:47 AM CDT) Only the most recent of2 resultswithin the time period is included. C-Reactive Protein <1 0 - 10 mg/L [facility] INSURANCE BILL Blood BLOOD SPECIMEN / Unknown 02/20/2024 10:47 AM CDT 02/20/2024 Narrative Resulting Agency Comment Lab Testing performed at: [facility] [address] [facility] [phone] Nancy Cotto MD LAB - CHEMISTRY TOBY BILLY [facility] INSURANCE BILL [address] [place] [address] * HLA TYPING B27 (02/20/2024 10:47 AM CDT) HLA-B27 Negative [facility] INSURANCE BILL Comment: HLA-B*27 Negative B27 allele interpretation for all loci based on IMGT/HLA database version 3.51.0 This test was developed and its performance characteristics determined by [employer]. It has not been cleared or approved by the Food and Drug Administration. HLA Lab CLIA ID Number [id number] This test was performed using Polymerase Chain Reaction (PCR) and Sequence Specific Oligonucleotide Probes (SSOP) technique. Sequence Based Typing (SBT) may be used as a supplemental method when necessary. If you have questions, please call [facility] customer service at or email at [email or web address]. Blood BLOOD SPECIMEN / Unknown 02/20/2024 10:47 AM CDT 02/20/2024 Narrative Resulting Agency Comment Lab Testing performed at: [place] [address] [facility] [id number] Nancy Cotto MD LAB - CHEMISTRY TOBY BILLY Performing Organization Address City/[facility]/ZIP Co de Phone Number [facility] INSURANCE BILL [address] [place] [address] * ANGIOTENSIN CONVERTING ENZYME BLOOD (02/20/2024 10:47 AM CDT) Angiotensin-Con verting Enzyme 77 14 - 82 U/L [facility] INS[facility] BILL Blood BLOOD SPECIMEN / Unknown 02/20/2024 10:47 AM CDT 02/20/2024 Narrative Resulting Agency Comment Lab Testing performed at: [place] [id number] [facility] [id number] Nancy Cotto MD LAB - CHEMISTRY TOBY BILLY Performing Organization Address City/[facility]/ZIP Co de Phone Number [facility] INSURANCE BILL [address] [place] [address] * ALDOLASE (02/20/2024 10:47 AM CDT) Aldolase 6.9 3.3 - 10.3 U/L [facility] INSURANCE BILL Blood BLOOD SPECIMEN / Unknown 02/20/2024 10:47 AM CDT 02/20/2024 Narrative Resulting Agency Comment Lab Testing performed at: [place] [id number] [facility] [id number] Nancy Cotto MD LAB - CHEMISTRY TOBY BILLY Performing Organization Address [facility]/ZIP Co de Phone Number [facility] INSURANCE BILL [address] [place] [address] * CYCLIC CITRULLINATED PEPTIDE(CCP) AB IGG (02/20/2024 10:47 AM CDT) CCP Antibodies IgG/IgA <20 <20 Units [facility] INSURANCE BILL Comment: Negative: <20 Weak Positive: 20-39 Moderate Positive: 40-59 Strong Positive: >59 Blood BLOOD SPECIMEN / Unknown 02/20/2024 10:47 AM CDT 02/20/2024 Narrative Resulting Agency Comment Lab Testing performed at: [employer] [address] [place] [address] [id number] Nancy Cotto MD LAB - CHEMISTRY TOBY BILLY Performing Organization Address [facility] Co de Phone Number [facility] INSURANCE BILL [address] [place] [address] * ERYTHROCYTE SEDIMENTATION RATE (02/20/2024 10:47 AM CDT) Only the most recent of2 resultswithin the time period is included. Erythrocyte Sedimentation Rate Westergren 10 0 - 32 mm/hr [facility] INSURANCE BILL Blood BLOOD SPECIMEN / Unknown 02/20/2024 10:47 AM CDT 02/20/2024 Narrative Resulting Agency Comment Lab Testing performed at: [facility] [address] [facility] [id number] Nancy Cotto MD LAB - HEMATOLOGY ORD ERABLES Performing Organization Address City/[facility]/ZIP Co de Phone Number [facility] INSURANCE BILL [address] [place] [address] * COMPLEMENT C4 (02/20/2024 10:47 AM CDT) Complement C4 26 14 - 44 mg/dL [facility] INSURANCE BILL Blood BLOOD SPECIMEN / Unknown 02/20/2024 10:47 AM CDT 02/20/2024 Narrative Resulting Agency Comment Lab Testing performed at: [employer] [address] [facility] [id number] Nancy Cotto MD LAB - SEROLOGY ORDER ROLANDA [facility] INSURANCE BILL [address] [place] [address] * CK BLOOD (02/20/2024 10:47 AM CDT) Pathologist [facility] CK 73 32 - 182 U/L [facility] INSURANCE BILL Blood BLOOD SPECIMEN / Unknown 02/20/2024 10:47 AM CDT 02/20/2024 Narrative Resulting Agency Comment Lab Testing performed at: [email or web address] [place] [address] [facility] [phone] Nancy Cotto MD LAB - CHEMISTRY ORDE RABLES Performing Organization Address City/[facility]/ZIP Co de Phone Number [facility] INSURANCE BILL [address] [place] [address] * PROTEIN ELECTROPHORESIS BLOOD (02/20/2024 10:47 AM CDT) Only the most recent of2 resultswithin the time period is included. Pathologist [facility] Protein Total 6.7 6.0 - 8.5 g/dL [facility] INSURANCE BILL Albumin 3.8 2.9 - 4.4 g/dL [facility] INSURANCE BILL Alpha-1 Globulin 0.2 0.0 - 0.4 g/dL [facility] INSURANCE BILL Xcxdw-2-Lxkazmni 0.6 0.4 - 1.0 g/dL [facility] INSURANCE [...] scan will follow via computer, mail, or cardboard inserter delivery. P E Interpretation, S [facility] INSURANCE BILL Comment: The SPE pattern appears unremarkable. Evidence of monoclonal protein is not apparent. Blood BLOOD SPECIMEN / Unknown 02/20/2024 10:47 AM CDT 02/20/2024 Narrative Resulting Agency Comment Lab Testing performed at: [facility] [place] [address] [facility] [id number] Nancy Cotto MD LAB - CHEMISTRY TOBY BILLY Performing Organization Address [facility]/ZIP Co de Phone Number [facility] INSURANCE BILL [address] [place] [address] * (ABNORMAL) COMPLEMENT C3 (02/20/2024 10:47 AM CDT) Complement C3 187(H) 82 - 167 mg/dL [facility] INSURANCE BILL Blood BLOOD SPECIMEN / Unknown 02/20/2024 10:47 AM CDT 02/20/2024 Narrative Resulting Agency Comment Lab Testing performed at: [employer] [address] [facility] [id number] Nancy Cotto MD LAB - CHEMISTRY TOBY BILLY Performing Organization Address [facility]/ZIP Co de Phone Number [facility] INSURANCE BILL [address] [place] [address] * MERLIN PANEL COMPREHENSIVE (02/20/2024 10:46 AM CDT) Anti-dsDNA Quantitative <1 0 - 9 IU/mL [facility] INSURANCE BILL Comment: Negative <5 Equivocal 5 - 9 Positive >9 CHIEF CONTROLLER Antibody 0.2 0.0 - 0.9 AI [facility] [...] Sm (anti-Tellez) SLE 15 - 30% --------- CHIEF CONTROLLER Mixed Connective Tissue Disease 95% (U1 nRNP, SLE 30 - 50% anti-ribonucleoprotein) Polymyositis and/or Dermatomyositis 20% --------- Scl-70 (antiDNA Scleroderma (diffuse) 20 - 35% topoisomerase) Crest 13% --------- Lorna-1 Polymyositis and/or Dermatomyositis 20 - 40% --------- Centromere B Scleroderma - Crest variant 80% Blood BLOOD SPECIMEN / Unknown 02/20/2024 10:46 AM CDT 02/20/2024 Narrative Resulting Agency Comment Lab Testing performed at: [email or web address] [address] [facility] [id number] Nancy Cotto MD LAB - SEROLOGY ORDER ROLANDA [facility] INSURANCE BILL [address] [place] [address] * ANCA VASCULITIS PANEL (02/20/2024 10:46 AM [...] up testing of positive sera with both UT-3 and MPO-ANCA enzyme immunoassays. As many as [...] Resulting Agency Comment Lab Testing performed at: [address] [phone] Nancy Cotto MD LAB - CHEMISTRY TOBY BILLY [facility] INSURANCE BILL [address] [place] [address] * THIOPURINE METHYLTRANSFERASE (02/20/2024 10:46 AM CDT) TPMT Activity 25.6 Units/mL RBC [facility] INSURANCE BILL Comment: Reference Range: Normal: 15.1 - 26.4 Heterozygous for low TPMT variant: 6.3 - 15.0 Homozygous for low TPMT variant: <6.3 Interpretation [facility] INSURANCE BILL Comment: The above results can be interpreted as Normal for red blood cell Thiopurine Methyltransferase activity. For patients having an intrinsic low level of TPMT, recent RBC transfusion can variably increase their assayed enzymatic activity depending on the amount and circulating half-life of the transfused red blood cells. This test was developed and its performance characteristics determined by [facility]. It has not been cleared or approved by the Food and Drug Administration. This case has been reviewed, approved, interpreted and electronically signed by Kodi Weldon, PhD, [facility]. Methodology [facility] INSURANCE BILL Comment: Enzymatic Endpoint/Liquid Chromatography - Tandem Mass Spectrometry (LC-MS/MS) Blood BLOOD SPECIMEN / Unknown 02/20/2024 10:46 AM CDT 02/20/2024 Narrative Resulting Agency Comment Lab Testing performed at: [employer] [facility] [id number] Nancy Cotto MD LAB - CHEMISTRY TOBY BILLY Performing Organization Address City/[facility]/ZIP Co de Phone Number [facility] INSURANCE BILL [address] [place] [address] * IRON + TIBC PANEL (02/20/2024 10:46 [...] Resulting Agency Comment Lab Testing performed at: [employer] [place] [address] [facility] [phone] Nancy Cotto MD LAB - CHEMISTRY TOBY BILLY Performing Organization Address City/[facility]/ZIP Co de Phone Number [facility] INSURANCE BILL [address] [place] [address] * CBC W AUTO DIFFERENTIAL (02/03/2024 1:03 AM CDT) Only the most recent of2 resultswithin the time period is included. WBC 7.8 4.0 - 10.7 x10E9/L 02/03/2024 1:27 AM CDT [facility] RBC Count 5.03 3.90 - 5.20 x10E12/L 02/03/2024 1:27 AM CDT [facility] Hemoglobin 15.3 11.9 - 15.8 g/dL 02/03/2024 1:27 AM CDT [facility] Hematocrit 42.7 34.8 - 46.1 % 02/03/2024 1:27 AM CDT [facility] MCV 84.9 80.0 - 98.0 [...] Reyes MD LAB - HEMATOLOGY ORD ERABLES [facility] [address] [place] [address], [facility] [phone] * (ABNORMAL) COMPREHENSIVE METABOLIC PANEL (02/03/2024 1:03 [...] 02/03/2024 1:03 AM CDT 02/03/2024 1:17 AM [facility] Kaylee Reyes MD LAB - CHEMISTRY ORDRei [facility] Organization Address City/State/ZIP Co de Phone Number [facility] [address] [place] [address], [facility] [phone] * (ABNORMAL) URINALYSIS W/MICROSCOPIC NO CULTURE (02/03/2024 12:57 AM T) Color UA Yellow Straw, Yellow 02/03/2024 1:40 AM [facility] Clarity UA t Cloudy(A) Clear 02/03/2024 1:40 AM [facility] Specific [place] UA 1.020 1.005 - 1.030 02/03/2024 1:40 AM [facility] pH UA 5.0 5.0 - 8.0 pH 02/03/2024 1:40 AM [facility] Protein UA Negative Negative 02/03/2024 1:40 AM [facility] Glucose UA Negative Negative 02/03/2024 1:40 AM [facility] Ketone UA Negative Negative 02/03/2024 1:40 AM [facility] Bilirubin UA Negative Negative 02/03/2024 1:40 AM CDT [facility] Blood UA Negative Negative 02/03/2024 1:40 AM CDT [facility] Nitrite UA Negative Negative 02/03/2024 1:40 AM CDT [facility] Leukocyte Esterase Negative Negative 02/03/2024 1:40 AM CDT [facility] Urobilinogen UA Negative Negative mg/dL 02/03/2024 1:40 AM CDT [facility] RBC UA 6-10(A) None Seen, 0-2, 3-5 /HPF 02/03/2024 1:40 AM CDT [facility] WBC UA 0-5 None Seen, 0-5 /HPF 02/03/2024 1:40 AM T [facility] Squamous Epithelial Cells UA 6-10(A) None Seen, 0-2, 3-5 /HPF 02/03/2024 1:40 AM CDT [facility] Mucus UA 2+ /LPF 02/03/2024 1:40 AM CDT [facility] Urine URINE SPECIMEN OBTAINED BY CLEAN CATCH PROCEDURE / Unknown Collection / Unknown 02/03/2024 12:57 AM CDT 02/03/2024 1:13 AM CDT Narrative [facility] - 02/03/2024 1:40 AM CDT Kaylee Reyes MD LAB - URINALYSIS ORD ERABLES [facility] [address] [place] [address], [facility] [phone] * CT RENAL STONE (02/03/2024 12:19 AM [...] > Dictated by Samy Johnson MD, PhD (radiology orderly). I, Haylee Lopez MD have personally reviewed and interpreted this examination/study. > Interpreting Provider: Haylee Lopez MD on 02/03/2024 10:15 AM Narrative 02/03/2024 10:15 AM CDT PROCEDURE: CT RENAL STONE, DATE/TIME OF EXAM: 02/03/2024 12:19 AM, LOCATION [facility] INDICATION: R10.9: Flank pain ADDITIONAL CLINICAL INFORMATION: [...] DATE/TIME OF EXAM: 02/03/2024 12:19 AM, LOCATION [facility] INDICATION: R10.9: Flank pain ADDITIONAL CLINICAL INFORMATION: [...] > Dictated by Samy Johnson MD, PhD (radiology orderly). I, Haylee Lopez MD have personally reviewed and interpreted this examination/study. > Interpreting Provider: Haylee Lopez MD on 410:15 AM Kaylee Reyes MD CT ORDERABLES * HCG URINE QUAL POCT NOTIFICATION (06/04/2019 1:02 PM CDT) Comment Notification Label Only - See Separate Report 06/04/2019 1:02 PM CDT [facility] Urine URINE / Unknown 11:47 AM CDT Tarun Garcia MD LAB - URINALYSIS OR DERABLES [facility] [address] [place] [address] * CT ABDOMEN AND PELVIS WITH IV [...] on 06/04/2019 at 1:11 PM Luna Durant HR CLERK-PREVOCATIONAL/REHABILITATION COUNSELOR CT ORDERABLES * URINALYSIS REFLEX MICROSCOPIC REFLEX CULTURE (06/04/2019 12:07 PM CDT) Color UA Straw Straw, Yellow 06/04/2019 12:14 PM CDT [facility] Clarity UA Clear Clear 06/04/2019 12:14 PM CDT [facility] Glucose UA Negative Negative 06/04/2019 12:[address] [facility] Bilirubin UA Negative Negative 06/04/2019 12:14 [facility] Ketone UA Negative Negative 06/04/2019 12:14 PM [facility] Specific [place] UA 1.006 1.005 - 1.030 06/04/2019 12:14 PM CDT [facility] Blood UA Negative Negative 06/04/2019 12:14 PM [facility] pH UA 7.0 5.0 - 8.0 pH 06/04/2019 12:14 [facility] Protein UA Negative Negative 06/04/2019 12:14 PM CDT [facility] Urobilinogen UA Negative Negative mg/dL 06/04/2019 12:14 PM CDT [facility] Nitrite UA Negative Negative 06/04/2019 12:14 PM CDT [facility] Leukocyte UA Negative Negative 06/04/2019 12:14 [facility] Urine Microscopy Urine microscopy not indicated 06/04/2019 12:[address] [facility] Reflex Status Culture not indicated 06/04/2019 12:14 PM CDT [facility] Urine URINE SPECIMEN OBTAINED BY CLEAN CATCH PROCEDURE / Unknown Collection / Unknown 06/04/2019 12:07 PM CDT 06/04/2019 12:09 PM CDT Narrative [facility] - 06/04/2019 12:14 PM CDT Tarun Garcia MD LAB - URINALYSIS OR DERABLES Performing Organization Address City/[facility]/ZIP Co de Phone Number [facility] [address] [place] [address] * HCG URINE QUALITATIVE - POCT (IP) INTERFACED (06/04/2019 12:06 PM CDT) HCG Qual Urine Negative Negative 06/04/2019 12:12 PM CDT [facility] Urine URINE / Unknown 06/04/2019 1 2:06 PM CDT 06/04/2019 12:12 PM CDT Provider Unknown LAB - POINT OF CARE ORDERABLES Performing Organization Address City/[facility]/ZIP Co de Phone Number [facility] [address] [place] [address] * LIPASE BLOOD (06/04/2019 11:56 AM CDT) Lipase 29 8 - 78 U/L 06/04/2019 12:59 PM CDT [facility] Blood BLOOD SPECIMEN / Unknown Venipuncture / Unknown 06/04/2019 11:56 AM CDT 06/04/2019 12:06 PM CDT Luna Durant HR CLERK-PREVOCATIONAL/REHABILITATION COUNSELOR LAB - CHEMISTRY O RDERABLES [facility] [address] [place] [address] * RPR (08/27/2016 3:46 PM VOCATIONAL REHABILITATION SPECIALIST) RPR Non Reactive Non Reactive [facility] ACCOUNT BILL Blood BLOOD SPECIMEN / Unknown 08/27/2016 3:46 PM VOCATIONAL REHABILITATION SPECIALIST 08/27/2016 Narrative Resulting Agency Comment [facility] [address] [address] [place] [phone] Albert Hutchinson MD LAB - CHEMISTRY TOBY BILLY Performing Organization Address City/[facility]/ZIP Co de Phone Number [facility] ACCOUNT BILL [address] [place] [address] * VITAMIN B6 (08/27/2016 3:46 PM VOCATIONAL REHABILITATION SPECIALIST) Vitamin B6 14.9 2.0 - 32.8 ug/L [facility] ACCOUNT BILL Blood BLOOD SPECIMEN / Unknown 08/27/2016 3:46 PM VOCATIONAL REHABILITATION SPECIALIST 08/27/2016 Narrative Resulting Agency Comment [facility] [address] [phone] Albert Hutchinson MD LAB - CHEMISTRY TOBY BILLY Performing Organization Address [facility] Co de Phone Number [facility] ACCOUNT BILL [address] [place] [address] * VITAMIN B12 FOLATE PANEL (08/27/2016 3:46 PM VOCATIONAL REHABILITATION SPECIALIST) Vitamin B12 879 211 - 911 pg/mL [facility] ACCOUNT BILL Folate 13.6 3.1 - 17.5 ng/mL [facility] ACCOUNT BILL Blood BLOOD SPECIMEN / Unknown 08/27/2016 3:46 PM VOCATIONAL REHABILITATION SPECIALIST 08/27/2016 Narrative Resulting Agency Comment [facility] [address] [address] [place] [phone] Albert Hutchinson MD LAB - CHEMISTRY TOBY BILLY Performing Organization Address City/[facility] Co de Phone Number [facility] ACCOUNT BILL [address] [place] [address] * (ABNORMAL) TSH (08/27/2016 3:46 PM VOCATIONAL REHABILITATION SPECIALIST) TSH 0.280(L) 0.358 - 3.740 uIU/mL [facility] ACCOUNT BILL Blood BLOOD SPECIMEN / Unknown 08/27/2016 3:46 PM VOCATIONAL REHABILITATION SPECIALIST 08/27/2016 Narrative Resulting Agency Comment [facility] [address] [address] [place] [phone] Albert Hutchinson MD LAB - CHEMISTRY DARIARei WENCESLAO [facility] ACCOUNT [place] [address] * IMAGING/RADIOLOGY/XRAY RESULTS ORDER (10/20/2009 6:02 AM VOCATIONAL REHABILITATION SPECIALIST) Anatomical Region Laterality Modality Other Narrative 10/20/2009 6:02 AM VOCATIONAL REHABILITATION SPECIALIST Ordered by an unspecified provider. Transcriptions Document, Scanned - 09/20/2009 12:00 AM VOCATIONAL REHABILITATION SPECIALIST Scanned Document IMAGING * CHROMOSOME ANALYSIS AMNIO PANEL (08/31/2009 12:00 PM VOCATIONAL REHABILITATION SPECIALIST) Chromosome Analysis Amniotic Fluid See Scanned Report [facility] Comment Amniotic Fluid [facility] AMNIOTIC FLUID SPECIMEN / Unknown 08/31/2009 12:00 PM VOCATIONAL REHABILITATION SPECIALIST 08/31/2009 12:40 PM VOCATIONAL REHABILITATION SPECIALIST Arvin Anderson MD LAB - PATHOLOGY/CYTO LOGY ORDERABLES [facility] [address] [place] [address] Care Teams Principal Trainer Relationship Specialty Start Date End Date Damian Sadler MD PCP - General Internal Medicine 07/04/16
[2024-10-17] MEDS: ONDANSETRON INJ 4 MG/2 ML VIAL IV PUSH (22:52)
[2024-10-17] MEDS: MORPHINE SULFATE (*CRX) 4 MG/ML INJ IV PUSH (22:53)
[2024-10-17 22:54] LABS: BEDSIDEPREGUCG Negative (Negative)
[2024-10-17 22:57] LABS: Basophils Percent Auto 0.4 % (0.2-1.2); Eosinophils Absolute Auto 0.1 K/mm3 (0-0.3); Eosinophils Percent Auto 1.6 % (0-4.4); Hematocrit 39.5 % (37.0-47.0); Hemoglobin 13.9 g/dL (12.0-15.0); Immature Granulocyte Absolute 0.01 K/mm3 (0.00-0.031); Immature Granulocyte Percent A 0.1 % (0-0.5); Lymphocytes Absolute Auto 2.46 K/mm3 (0.9-3.2); Lymphocytes Percent Auto 35.7 % (18.3-44.2); Mean Corpuscular HGB Conc 35.2 g/dl (32-36); Mean Corpuscular Hemoglobin 30.8 pg (26-34); Mean Corpuscular Volume 87.4 fl (80-100); Mean Platelet Volume 9.5 fl (7.4-10.4); Monocytes Absolute Auto 0.7 K/mm3 (0.1-0.6); Monocytes Percent Auto 9.6 % (2.6-8.5); Neutrophils Absolute Auto 3.6 K/mm3 (1.3-6.7); Neutrophils Percent Auto 52.6 % (45.5-73.1); Platelet Count Result 221 k/mm3 (150-375); Red Blood Count 4.52 M/mm3 (4.2-5.4); Red Cell Distribution Width 12.4 % (11.5-14.5); White Blood Count 6.9 K/mm3 (4.5-10.0)
--- NOTE | 2024-10-17 23:00 | ED_ITS ---
HPI - Abdominal Pain General Chief Complaint: Urogenital-Female Stated Complaint: HTN, trying to pass 4mm kidney stone Time Seen by Provider: 10/17/24 22:05 Source: patient Mode of arrival: ambulatory Limitations: no limitations History of Present Illness HPI narrative: This is a 44-year-old female with history of hypertension and previous kidney stones requiring removal (the last happening 1 year ago) who returns to the emergency department complaining of right flank pain. Patient was seen here 5 days ago and diagnosed with a 4 mm ureteral stone. She states despite Flomax, her pain persists. She states her blood pressure remains high as a result. She denies fevers, chills, vomiting or bleeding. She complains of intermittent nausea with episodes of severe pain. She rates her baseline pain 6/10. Related Data Home Medications ?Medication ?Instructions ?Recorded ?Confirmed ?Last Taken ?Type multivitamin 1 tablet PO DAILY 04/04/22 02/21/24 Unknown History amlodipine 10 mg tablet 10 mg PO DAILY 02/21/24 02/21/24 Unknown History pregabalin 150 mg capsule 150 mg PO ONCE 02/21/24 02/21/24 Unknown History Allergies Allergy/AdvReac Type Severity Reaction Status Date / Time ketorolac (From Toradol) Allergy Headache,Rash, Verified 10/17/24 21:59 Swollen tongue tramadol AdvReac Mild VOMITING/HE Verified 10/17/24 21:59 ADACHE hydralazine AdvReac Headache Verified 10/17/24 21:59 Review of Systems 2 Review of Systems: All systems reviewed & are unremarkable except as noted in HPI and below PMFSH Past Medical History Medical History Hypertension Gastroesophageal reflux disease Sleep paralysis, recurrent isolated Smoker Obesity Depression Multiple kidney stones Seasonal allergies Surgical History Surgical History History of laparoscopic cholecystectomy on 04/25/23 PDC History of tubal ligation History of endometrial ablation (2009) History of hysterectomy (2015) History of open reduction and internal fixation (ORIF) procedure (2012) Left elbow. History of section 2000, 2001, 2009 Status post cystoscopy with ureteral stent placement Family History Family History Mother Diabetes mellitus Depression Alcoholism Father Hypertension Sibling Congenital heart disease Son Asthma Grandparent Diabetes mellitus Cerebrovascular accident Social History Social History Social History: Surrogate medical decision maker: Bang Luke, spouse. Code status: Full code. Smoking packs per day: 0.5 Smoking cigarettes per day: 10.0 Years smoked: 32 Smoking pack-years: 16.00 Smoking status: Current every day smoker Tobacco type: cigarettes Alcohol intake: never Alcohol use details: Social alcohol use in moderation. Substance use: never Substance use type: does not use Do You Feel Safe in your Home?: Yes Lack of Transportation: No Lack of Food: Never True Current Housing: I Have Housing Concerned About Future Housing: No Difficulty Paying Gas/Electric Bills: No Difficulty Paying for Meds: No Currently Unemployed: No Education: High School Diploma/GED Difficulty w/ Childcare or Family Care: No Living arrangements: with family Spiritual care concerns: No Exam 2 Narrative: GENERAL: Well-developed, well-nourished, and in no acute distress. Appears uncomfortable HEAD: Normocephalic, atraumatic. EYES: PERRLA and EOMI. CHEST: Clear to auscultation. No respiratory distress. No wheezes rales or rhonchi HEART: Regular rate and rhythm. No murmur heard. Normal peripheral pulses. ABDOMEN: Soft, nontender, nondistended, normal active bowel sounds. Right CVA tenderness to palpation. No left CVA tenderness EXTREMITIES: Normal range of motion. No edema. SKIN: Warm, dry, no rash. NEURO: Alert and oriented x3. No focal deficit. Moving all 4 limbs spontaneously PSYCH: Normal mood and affect. Course Course Emergency Course: 01:33 - CBC unremarkable. Chemistries unremarkable with creatinine of 0.49. Urinalysis demonstrates greater than 100 rbc's, 6-10 white blood cells but is not concerning for urinary tract infection. STAT Rad interpretation of CT abdomen pelvis demonstrates ?no hydronephrosis or visualized obstructing nephrolithiasis. Nonobstructing bilateral renal calculi are present. Hepatomegaly and fatty infiltration of the liver. ? An incidental finding of subtle airspace opacity is noted in the right lower lobe. ?Question atypical infection is noted. I have low suspicion for pneumonia. It appears the patient has passed this stone. I suspect residual pain. The patient's blood pressure improved to 181/103 after amlodipine and pain medications. The patient prefers to follow-up with her urologist. Will discharge with pain medications, tamsulosin and recommendation for primary care and Neurology follow-up. Vital Signs Vital signs: Vital Signs Temperature 97.6 F 10/17/24 22:06 Pulse Rate 77 10/17/24 22:06 Respiratory Rate 18 10/17/24 22:06 Blood Pressure 230/113 H 10/17/24 22:06 Pulse Oximetry 100 10/17/24 22:06 Oxygen Delivery Room Air 10/17/24 22:06 Temperature 97.6 F 10/17/24 22:06 Pulse Rate 82 10/18/24 01:29 Respiratory Rate 16 10/18/24 01:29 Blood Pressure 181/103 H 10/18/24 01:29 Pulse Oximetry 98 10/18/24 01:29 Oxygen Delivery Room Air 10/17/24 22:06 MDM - Abdominal Pain MDM Narrative Medical decision making narrative: Plan: Labs co-pay rigors roll, antihypertensives, imaging, reassess Differential Diagnosis Differential diagnosis: Likely abdominal pain, calculus of kidney, diverticulitis, gastroenteritis, pancreatitis, small bowel obstruction and other (Pyelonephritis, UTI, metabolic abnormality, uncontrolled hypertension, other) Lab Data 10/17/24 22:48 10/17/24 22:48 Labs: Lab Results 10/17/24 10/17/24 Range/Units 22:48 22:53 WBC 6.9 (4.5-10.0) K/mm3 RBC 4.52 (4.2-5.4) M/mm3 Hgb 13.9 (12.0-15.0) g/dL Hct 39.5 (37.0-47.0) % MCV 87.4 (80-100) fl MCH 30.8 (26-34) pg MCHC 35.2 (32-36) g/dl RDW 12.4 (11.5-14.5) % Plt Count 221 (150-375) k/mm3 MPV 9.5 (7.4-10.4) fl Immature Gran % (Auto) 0.1 (0-0.5) % Neut % (Auto) 52.6 (45.5-73.1) % Lymph % (Auto) 35.7 (18.3-44.2) % [place] % (Auto) 9.6 H (2.6-8.5) % Eos % (Auto) 1.6 (0-4.4) % Baso % (Auto) 0.4 (0.2-1.2) % Lymph # (Auto) 2.46 (0.9-3.2) K/mm3 [place] # (Auto) 0.7 H (0.1-0.6) K/mm3 Eos # (Auto) 0.1 (0-0.3) K/mm3 Baso # (Auto) 0.0 (0.0-0.1) K/mm3 Abs Immat Gran (auto) 0.01 (0.00-0.031) K/mm3 Absolute Neuts (auto) 3.6 (1.3-6.7) K/mm3 Absolute Nucleated RBC 0.000 (0.0-0.012) K/mm3 Nucleated RBC % 0.0 (0.0-0.2) % PT 14.3 (11.1-14.7) Seconds INR 1.1 Sodium 140 (137-145) mmol/L Potassium 3.7 (3.4-5.0) mmol/L Chloride 106 (98-107) mmol/L Carbon Dioxide 22 (22-30) mmol/L Anion Gap 12 (4-12) mmol/L BUN 11 (7-17) mg/dL Creatinine 0.49 L (0.7-1.0) mg/dL Estim Creat Clear Calc 122 ml/min Estimated GFR > 60 (59 - ) Glucose 91 (65-110) mg/dL Calcium 9.2 (8.4-10.2) mg/dL Total Bilirubin 0.3 (0.2-1.3) mg/dL AST 27 (14-36) U/L ALT 35 (6-35) U/L Alkaline Phosphatase 85 (38-126) U/L Total Protein 7.0 (6.3-8.2) g/dL Albumin 4.4 (3.5-5.1) g/dL Urine Color Yellow (Yellow) Urine Appearance Cloudy H (Clear) Urine pH 6.5 (5.0-9.0) Ur Specific [place] 1.021 (1.001-1.035) Urine Protein Negative (Negative) mg/dL Urine Glucose (UA) Negative (Negative) mg/dL Urine Ketones Negative (Negative) mg/dL Ur Blood (Man) 3+ H (Negative) Urine Nitrate Negative (Negative) Urine Bilirubin Negative (Negative) Urine Urobilinogen 0.2 (<2.0) mg/dL Leukocyte Esterase Rfl Negative (Negative) ALEKSANDRA/UL Urine RBC >100 H (0-2) /hpf Urine WBC 6-10 H (0-3) /hpf Ur Squamous Epith Cells Moderate (Few) /hpf Urine Bacteria 1+ H /hpf Urine Casts 0-2 POC Urine HCG, Qual Negative (Negative) Discharge Plan Discharge Clinical Impression: Acute right flank pain, Hypertension Patient Disposition: Home, Self-Care Condition: Stable Instructions: Antibiotic Form, Renal Colic (ED) Additional Instructions: You were seen in the emergency department. Your labs are not concerning for kidney injury. Urinalysis was not concerning for urinary tract infection. A CT scan did not show a kidney stone in the ureter. It appears you have passed the stone. I suspect your pain is due to soft tissue injuries from the stone. I recommend pain medications and follow-up with your urologist. If you develop fevers with severe abdominal pain, persistent vomiting, or if you have other emergent concerns for life, limb, or eyesight, return to the emergency department. Patient Language: Korean Prescriptions: New hydrocodone-acetaminophen 5-325 mg tablet 1 tablet PO Q8H PRN (Reason: pain) Qty: 15 0RF tamsulosin 0.4 mg capsule 0.4 mg PO DAILY Qty: 14 0RF No Action multivitamin Tablet 1 tablet PO DAILY pregabalin 150 mg capsule 150 mg PO ONCE amlodipine 10 mg tablet 10 mg PO DAILY nebivolol [Bystolic] 10 mg tablet 10 mg PO BID 30 Days Qty: 60 1RF cephalexin 500 mg capsule 500 mg PO Q12H Qty: 10 0RF tamsulosin [Flomax] 0.4 mg capsule 0.4 mg PO HS Qty: 14 0RF cephalexin 500 mg capsule 500 mg PO Q6H Qty: 28 0RF ondansetron 4 mg tablet,disintegrating 4 mg PO Q8H Qty: 14 0RF hydrocodone-acetaminophen 5-325 mg tablet 1 tablet PO Q8H PRN (Reason: pain) Qty: 14 0RF potassium chloride 20 mEq tablet extended release 20 meq PO DAILY Qty: 30 0RF losartan 50 mg tablet 50 mg PO BID Qty: 180 0RF Follow-up/Referrals: Maximino Gonzalez MD [Physician] - 1 Week Lucas Carter DO [Primary Care Provider] - 2 Weeks Time of Disposition: 01:38
[2024-10-17 23:04] LABS: Add Urine Microscopic? YES; Appearance Urine Cloudy (Clear); Bacteria Urine 1+ /hpf; Bilirubin Urine Negative (Negative); Blood Urine 3+ (Negative); Color Urine Yellow (Yellow); Glucose Urine UA Negative (Negative); Ketones Urine Negative (Negative); Leukocyte Esterase Ur Negative LEU/UL (Negative); Nitrate Urine Negative (Negative); Non Pathogenic Casts 0-2; Protein Urine Negative (Negative); RBC Urine >100 /hpf (0-2); Specific Grav Ur 1.021 (1.001-1.035); Squamous Epithelial Cell Urine Moderate /hpf (Few); Urobilinogen Urine 0.2 mg/dL (<2.0); pH Urine 6.5 (5.0-9.0)
[2024-10-17 23:10] LABS: INR 1.1; Prothrombin Time 14.3 Seconds (11.1-14.7)
[2024-10-17 23:17] LABS: Alanine Aminotransferase 35 U/L (6-35); Albumin Level 4.4 g/dL (3.5-5.1); Alkaline Phosphatase 85 U/L (38-126); Anion Gap 12 mmol/L (4-12); Aspartate Amino Transferase 27 U/L (14-36); Bilirubin,Total 0.3 mg/dL (0.2-1.3); Blood Urea Nitrogen 11 mg/dL (7-17); Calcium 9.2 mg/dL (8.4-10.2); Carbon Dioxide 22 mmol/L (22-30); Chloride 106 mmol/L (98-107); Estimated CRCL calculation 122 ml/min; Estimated Glomerular Filt Rate > 60; Glucose 91 mg/dL (65-110); Potassium 3.7 mmol/L (3.4-5.0); Sodium 140 mmol/L (137-145)
[2024-10-17] MEDS: amLODIPine BESYLATE 10 MG TABLET PO (23:37)
[2024-10-18] MEDS: HYDROmorphone HCL INJ (*CRX) 1 MG/ML SYR 0.5 MG IV PUSH (00:14)
[2024-10-18 00:30] VITALS: BP 207/110; PULSE 79; RESP 20; O2SAT 94
[2024-10-18 01:29] VITALS: BP 181/103; PULSE 82; RESP 16; O2SAT 98
== END 2024-10-18 01:51 | disposition home or self-care (01) ==
PROVIDERS: Emergency Provider Preventive Medicine Aerospace Medicine; PCP Internal Medicine
DX: R10.9 Unspecified abdominal pain (principal); I10 Essential (primary) hypertension; E66.9 Obesity, unspecified; Z68.31 Body mass index [BMI] 31.0-31.9, adult; K21.9 Gastro-esophageal reflux disease without esophagitis; G47.53 Recurrent isolated sleep paralysis; F17.210 Nicotine dependence, cigarettes, uncomplicated; Z87.442 Personal history of urinary calculi; Z90.49 Acquired absence of other specified parts of digestive tract; Z90.710 Acquired absence of both cervix and uterus; Z79.899 Other long term (current) 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; N20.2 Calculus of kidney with calculus of ureter
CPT/HCPCS: 36415; 74176; 80053; 81001; 81025; 85025; 85610; 96374; 96375; 99284; A9270; J1171; J2270; J2405

== ENCOUNTER 2024-10-20 22:29 | Observation (INO) | payer MEDICAID, SELFPAY ==
--- NOTE | ~2024-10-20 | XR_ITS ---
Supine and upright views of the abdomen Clinical history: Right UPJ stone Findings: Bowel gas pattern is nonspecific. No evidence for obstruction or free air. No abnormal mass lesion or calcification is seen. Osseous structures are intact. Impression: No definite stone seen on plain radiographs. Reviewed, dictated and finalized at [facility]. Impression: No definite stone seen on plain radiographs.
--- NOTE | ~2024-10-20 | XR_ITS ---
INTRAOPERATIVE FLUOROSCOPY: CLINICAL HISTORY: 44 years old Female; CYSTO RIGHT SPECIAL PROCEDURE COMMENTS: Limited intraoperative fluoroscopy of the pelvis was performed. CUMULATIVE DOSE: 8.9 mGy FLUOROSCOPY TIME: 23.5 seconds FINDINGS/IMPRESSION: Please refer to operative note for further details. Reviewed, dictated and finalized at location A.
--- NOTE | ~2024-10-20 | CT_ITS ---
Non-contrast CT scan of the Abdomen and Pelvis Clinical indication: Right flank pain Technique: 2.5 mm axial scans were obtained through the abdomen and pelvis without intravenous or or al contrast. Dose reduction technique was used on this scan by utilizing automated exposure control a nd iterative reconstruction technique. The dose-length product (DLP) was 693.44 mGy-cm. COMPARISON: 10/17/2024 Findings: Images through the lung bases reveal no abnormalities. Small bilateral nonobstructing renal stones are present, largest measuring 3 mm in the left kidney. T here is a 3 mm stone in the proximal right ureter (axial image 78). No distinct hydronephrosis. The liver, spleen, pancreas, and adrenals appear normal. Cholecystectomy clips are present. There is no aortic aneurysm. There is no evidence of bowel obstruction. Images through the pelvis were performed. There is no evidence of ascites or lymphadenopathy. Urinary bladder unremarkable. Status post hysterectomy. Impression: 3 mm proximal right ureteral stone, without hydronephrosis. Additional small bilateral nonobstructing renal stones, as above. Reviewed, dictated and finalized at location M. Impression: 3 mm proximal right ureteral stone, without hydronephrosis. Additional small bilateral nonobstructing renal stones, as above.
--- OUTSIDE RECORDS SUMMARY | 2024-10-20 22:31 | XMS_ITS | Clinical Summary ---
Author Organization [facility] al Address [address] [place] [address] Care Team Providers Care Diesel Lube Tech Name Role Phone Lucas Carter DO Primary Care Provider [phone] Allergies Active Allergy Reactions Criticality Noted Date Comments Hydralazine Headache,Vomiting Low 01/21/2024 Ketorolac Hives,Itching Medium 10/17/2017 Tramadol Hives,Urticaria Medium 08/27/2016 Medications omeprazole (PriLOSEC) 20 mg capsuleIndications :Treatment of Non-Bleeding Gastric Disorder Take 1 capsule (20 mg total) by mouth filemaker developer 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 Active MULTIVIT-MINERALS/ FERROUS FUM (MULTI VITAMIN ORAL)Indications:h ealth Take 1 tablet by mouth filemaker developer 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 Active ondansetron ODT (ZOFRAN-ODT) 4 [...] 1 tablet (25 mg total) by mouth filemaker developer 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 Active nebivoloL (BYSTOLIC) 10 mg [...] total) by mouth nightly 03/03/20 24 Active ibuprofen 200 mg tab/cap Take 2 [...] BY MOUTH TWICE DAILY 60 capsule 09/14/19 25 Active Active Problems Problem Noted Date Diagnosed [...] Grandfather Beka Sr. Hearing loss Maternal Grandmother [place] Alcohol abuse Mother Lisae Arthritis Mother Melodye COPD Mother Melodye Depression Mother Melodye Hearing loss Mother Melodye Obesity Mother Melelizabethe Stroke Paternal Grandfather Dusty Obesity Sister Sarai Relation Name Status Comments Brother Dusty Father Israel Maternal Grandfather Beka Sr. Maternal Grandmother [place] Mother Gretchen Paternal Grandfather Dusty Sister Sarai Social History Tobacco Use Types Packs/Day Years Used Date Smoking Tobacco: Every Day Cigarettes 0.8 32.9 Started: 11/11/1991 Smokeless Tobacco: Never Tobacco [...] on file Legal Sex Female 9:06 PM GIS CONSULTANT Gender Identity Female 10/01/2023 8:44 AM GIS CONSULTANT Sexual Orientation Straight 10/01/2023 8: 44 AM GIS CONSULTANT Obstetrics History Para Term AB IAB SAB [...] Comments Blood Pressure 125/82 06/29/2024 10:05 AM GIS CONSULTANT Pulse 75 06/29/2024 10:05 AM GIS CONSULTANT Temperature 36.2 C (97.2 F) 06/29/2024 9:28 AM GIS CONSULTANT Respiratory Rate 15 06/29/2024 10:0 5 AM GIS CONSULTANT Oxygen Saturation 96% 06/29/2024 10: 05 AM GIS CONSULTANT Inhaled Oxygen Concentration - - Weight 83.4 kg (183 lb 12.8 oz) 06/29/2024 7:50 AM GIS CONSULTANT Height 160 cm (5' 3 ) 06/29/2024 7:50 AM GIS CONSULTANT Body Mass Index 32.56 06/29/2024 7:50 AM GIS CONSULTANT Plan of Treatment Health Maintenance Due Date [...] on stairs Contact your local community or [facility] for information on exercise, fall prevention programs, or options for improving home safety. Medical Devices Implanted Type Area Building Inspector Device Identifier Shelf Expiration Date Model / Serial / Lot Screw Left: Elbow Insurance IDPA [facility] CHOICE [facility]US [facility] HMO/PPO Address: [address] [address] [place] [address] [facility] Advance Directives For more information, please contact: [phone] * Full Code (Latest Code Status on File) Date Activated Date Inactivated Comments 08/15/2022 3:10 PM 08/18/2022 6:09 PM Care Teams Diesel Lube Tech Relationship Specialty Start Date End Date Lucas Carter DO PCP - General Internal Medicine 08/15/22
--- OUTSIDE RECORDS SUMMARY | 2024-10-20 22:31 | XMS_ITS | CONTINUITY OF CARE DOCUMENT ---
Author Name [email or web address] Address Unknown Organization [facility] Address [address] [place] [address] Phone [phone] Care Team Providers Care Supervisor Process Testing Name Role Phone William CURIEL, Herlinda Unavailable [phone] SHAWNEE CURIEL, NABIL Schmidt Unavailable INSURANCE PROVIDERS Payer name Policy type / Coverage type Bj red green party ID [employer] Medicaid [id number] [facility] [id number]
--- OUTSIDE RECORDS SUMMARY | 2024-10-20 22:31 | XMS_ITS | Patient Health Summary ---
Author Organization [facility] Address [address] [place] [address] Care Team Providers Care Supervisor Color Making Name Role Phone Damian Sadler MD Primary Care Provider [phone] Note from [facility],non-owned Affiliates and Associated Physician Practices is amultiple site organization consisting of ambulatory clinics and hospital sitesin [place], [place], [place] and [place]. This disclosure is being madepursuant to the Care Everywhere program and may not contain all information available regarding this patient. 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 [...] M54.2: Cervicalgia. R53.83: Other fatigue. 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 Additional History: COMPARISON: None. [...] M54.2: Cervicalgia. R53.83: Other fatigue. 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 Additional History: COMPARISON: None. [...] M54.2: Cervicalgia. R53.83: Other fatigue. 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 Additional History: COMPARISON: None. [...] Resulting Agency Comment Lab Testing performed at: [facility] [address] [facility] [id number] Nancy Cotto MD LAB - CHEMISTRY TOBY BILLY [facility] Organization Address City/State/ZIP Co de Phone Number [facility] INSURANCE BILL [address] [place] [address] * HEPATITIS SCREEN ACUTE ([facility]) (02/20/2024 10:47 [...] Resulting Agency Comment Lab Testing performed at: [facility] [address] [facility] [phone] Nancy Cotto MD LAB - CHEMISTRY TOBY BILLY [facility] INSURANCE BILL [address] [place] [address] * RHEUMATOID ARTHRITIS 14-3-3 ETA (02/20/2024 10:47 AM CDT) 14.3.3 eta Protein <0.20 ng/mL [facility] INSURANCE BILL Comment: Reference Range: < 0.20 Comments: 14-3-3 eta protein is a joint-derived, proinflammatory risk officer that is implicated in the joint erosion [...] et al. 14-3-3 eta is a novel risk officer associated with the pathogenesis of rheumatoid arthritis and joint damage. Arthritis Res Ther 2014;16:R99. This test was developed and its performance characteristics determined by [employer]?. It has not been cleared or approved by the Food and Drug Administration. Blood BLOOD SPECIMEN / Unknown 02/20/2024 10:47 AM CDT 02/20/2024 Narrative Resulting Agency Comment Lab Testing performed at: [employer] [address] [place] [address] [phone] Nancy Cotto MD LAB - CHEMISTRY ORDE RABLES Performing Organization Address [facility]/ZIP Co de Phone Number [facility] INSURANCE BILL [address] [place] [address] * INTERPRETATION REFLEXED (02/20/2024 10:47 AM CDT) Interpretation [facility] INSURANCE BILL Comment: Not infected with HCV unless early or acute infection is suspected (which may be delayed in an immunocompromised individual), or other evidence exists to indicate HCV infection. 02/20/2024 10:4 7 AM CDT 02/20/2024 Narrative Resulting Agency Comment Lab Testing performed at: [facility] [facility] [address] [facility] [phone] Nancy Cotto MD LAB - SEROLOGY ORDER ROLANDA Performing Organization Address City/[facility]/RUST Co de Phone Number [facility] INSURANCE BILL [address] [place] [address] * (ABNORMAL) IMMUNOFIXATION BLOOD (02/20/2024 10:47 AM [...] Resulting Agency Comment Lab Testing performed at: [facility] [address] [facility] [phone] Nancy Cotto MD LAB - CHEMISTRY TOBY BILLY [facility] INSURANCE BILL [address] [place] [address] * RHEUMATOID FACTOR BLOOD QUANTITATIVE (02/20/2024 10:47 AM CDT) Rheumatoid Factor <10.0 <14.0 IU/mL [facility] INSURANCE BILL Blood BLOOD SPECIMEN / Unknown 02/20/2024 10:47 AM CDT 02/20/2024 Narrative Resulting Agency Comment Lab Testing performed at: [address] [phone] Nancy Cotto MD LAB - CHEMISTRY TOBY BILLY Performing Organization Address [facility]/ZIP Co de Phone Number [facility] INSURANCE BILL [address] [place] [address] * C-REACTIVE PROTEIN (02/20/2024 10:47 AM CDT) Only the most recent of2 resultswithin the time period is included. C-Reactive Protein <1 0 - 10 mg/L [facility] INSURANCE BILL Blood BLOOD SPECIMEN / Unknown 02/20/2024 10:47 AM CDT 02/20/2024 Narrative Resulting Agency Comment Lab Testing performed at: [facility] [address] [facility] [phone] Nancy Cotto MD LAB - CHEMISTRY TOBY BILLY [facility] INSURANCE BILL [address] [place] [address] * HLA TYPING B27 (02/20/2024 10:47 AM CDT) HLA-B27 Negative [facility] INSURANCE BILL Comment: HLA-B*27 Negative B27 allele interpretation for all loci based on IMGT/HLA database version 3.51.0 This test was developed and its performance characteristics determined by [employer]. It has not been cleared or approved by the Food and Drug Administration. HLA Lab CLIA ID Number [id number] This test was performed using Polymerase Chain Reaction (PCR) and Sequence Specific Oligonucleotide Probes (SSOP) technique. Sequence Based Typing (SBT) may be used as a supplemental method when necessary. If you have questions, please call [facility] customer service at or email at [email or web address]. Blood BLOOD SPECIMEN / Unknown 02/20/2024 10:47 AM CDT 02/20/2024 Narrative Resulting Agency Comment Lab Testing performed at: [place] [address] [facility] [phone] Nancy Cotto MD LAB - CHEMISTRY TOBY BILLY Performing Organization Address City/[facility]/ZIP Co de Phone Number [facility] B[facility] [address] [place] [address] * ANGIOTENSIN CONVERTING ENZYME BLOOD (02/20/2024 10:47 AM CDT) Angiotensin-Con verting Enzyme 77 14 - 82 U/L [facility] Blood BLOOD SPECIMEN / Unknown 02/20/2024 10:47 AM CDT 02/20/2024 Narrative Resulting Agency Comment Lab Testing performed at: [place] [id number] [facility] [id number] Nancy Cotto MD LAB - CHEMISTRY TOBY BILLY Performing Organization Address City/[facility]/ZIP Co de Phone Number [facility] INSURANCE BILL [address] [place] [address] * ALDOLASE (02/20/2024 10:47 AM CDT) Aldolase 6.9 3.3 - 10.3 U/L [facility] INSURANCE BILL Blood BLOOD SPECIMEN / Unknown 02/20/2024 10:47 AM CDT 02/20/2024 Narrative Resulting Agency Comment Lab Testing performed at: [place] [id number] [facility] [id number] Nancy Cotto MD LAB - CHEMISTRY TOBY BILLY Performing Organization Address [facility]/ZIP Co de Phone Number [facility] INSURANCE BILL [address] [place] [address] * CYCLIC CITRULLINATED PEPTIDE(CCP) AB IGG (02/20/2024 10:47 AM CDT) CCP Antibodies IgG/IgA <20 <20 Units [facility] INSURANCE BILL Comment: Negative: <20 Weak Positive: 20-39 Moderate Positive: 40-59 Strong Positive: >59 Blood BLOOD SPECIMEN / Unknown 02/20/2024 10:47 AM CDT 02/20/2024 Narrative Resulting Agency Comment Lab Testing performed at: [employer] [address] [place] [id number] Nancy Cotto MD LAB - CHEMISTRY TOBY BILLY Performing Organization Address [facility]/RUST Co de Phone Number [facility] INSURANCE BILL [address] [place] [address] * ERYTHROCYTE SEDIMENTATION RATE (02/20/2024 10:47 AM CDT) Only the most recent of2 resultswithin the time period is included. Erythrocyte Sedimentation Rate Westergren 10 0 - 32 mm/hr [facility] INSURANCE BILL Blood BLOOD SPECIMEN / Unknown 02/20/2024 10:47 AM CDT 02/20/2024 Narrative Resulting Agency Comment Lab Testing performed at: [facility] [address] [facility] [phone] Nancy Cotto MD LAB - HEMATOLOGY ORD ERABLES Performing Organization Address City/[facility]/ZIP Co de Phone Number [facility] INSURANCE BILL [address] [place] [address] * COMPLEMENT C4 (02/20/2024 10:47 AM CDT) Complement C4 26 14 - 44 mg/dL [facility] INSURANCE BILL Blood BLOOD SPECIMEN / Unknown 02/20/2024 10:47 AM CDT 02/20/2024 Narrative Resulting Agency Comment Lab Testing performed at: [employer] [address] [facility] [phone] Nancy Cotto MD LAB - SEROLOGY ORDER ROLANDA [facility] INSURANCE BILL [address] [place] [address] * CK BLOOD (02/20/2024 10:47 AM CDT) Pathologist [facility] CK 73 32 - 182 U/L [facility] INSURANCE BILL Blood BLOOD SPECIMEN / Unknown 02/20/2024 10:47 AM CDT 02/20/2024 Narrative Resulting Agency Comment Lab Testing performed at: [facility] [address] [facility] [phone] Nancy Cotto MD LAB - CHEMISTRY ORDE RABLES Performing Organization Address City/[facility]/ZIP Co de Phone Number [facility] INSURANCE BILL [address] [place] [address] * PROTEIN ELECTROPHORESIS BLOOD (02/20/2024 10:47 AM CDT) Only the most recent of2 resultswithin the time period is included. Pathologist [facility] Protein Total 6.7 6.0 - 8.5 g/dL [facility] INSURANCE BILL Albumin 3.8 2.9 - 4.4 g/dL [facility] INSURANCE BILL Alpha-1 Globulin 0.2 0.0 - 0.4 g/dL [facility] INSURANCE BILL Hfdif-6-Qifufwps 0.6 0.4 - 1.0 g/dL [facility] INSURANCE [...] scan will follow via computer, mail, or vp ancillary delivery. P E Interpretation, S [facility] INSURANCE BILL Comment: The SPE pattern appears unremarkable. Evidence of monoclonal protein is not apparent. Blood BLOOD SPECIMEN / Unknown 02/20/2024 10:47 AM CDT 02/20/2024 Narrative Resulting Agency Comment Lab Testing performed at: [facility] [address] [facility] [phone] Nancy Cotto MD LAB - CHEMISTRY TOBY BILLY Performing Organization Address [facility]/ZIP Co de Phone Number [facility] INSURANCE BILL [address] [place] [address] * (ABNORMAL) COMPLEMENT C3 (02/20/2024 10:47 AM CDT) Complement C3 187(H) 82 - 167 mg/dL [facility] INSURANCE BILL Blood BLOOD SPECIMEN / Unknown 02/20/2024 10:47 AM CDT 02/20/2024 Narrative Resulting Agency Comment Lab Testing performed at: [employer] [address] [facility] [phone] Nancy Cotto MD LAB - CHEMISTRY TOBY BILLY Performing Organization Address [facility]/ZIP Co de Phone Number [facility] INSURANCE BILL [address] [place] [address] * MERLIN PANEL COMPREHENSIVE (02/20/2024 10:46 AM CDT) Anti-dsDNA Quantitative <1 0 - 9 IU/mL [facility] INSURANCE BILL Comment: Negative <5 Equivocal 5 - 9 Positive >9 SCRAP WORKER Antibody 0.2 0.0 - 0.9 AI [facility] [...] Sm (anti-Tellez) SLE 15 - 30% --------- SCRAP WORKER Mixed Connective Tissue Disease 95% (U1 nRNP, SLE 30 - 50% anti-ribonucleoprotein) Polymyositis and/or Dermatomyositis 20% --------- Scl-70 (antiDNA Scleroderma (diffuse) 20 - 35% topoisomerase) Crest 13% --------- Lorna-1 Polymyositis and/or Dermatomyositis 20 - 40% --------- Centromere B Scleroderma - Crest variant 80% Blood BLOOD SPECIMEN / Unknown 02/20/2024 10:46 AM CDT 02/20/2024 Narrative Resulting Agency Comment Lab Testing performed at: [facility] [address] [facility] [phone] Nancy Cotto MD LAB - SEROLOGY ORDER ROLANDA [facility] INSURANCE BILL [address] [place] [address] * ANCA VASCULITIS PANEL (02/20/2024 10:46 AM [...] up testing of positive sera with both AR-3 and MPO-ANCA enzyme immunoassays. As many as [...] Resulting Agency Comment Lab Testing performed at: [address] [phone] Nancy Cotto MD LAB - CHEMISTRY TOBY BILLY [facility] [address] [place] [address] * THIOPURINE METHYLTRANSFERASE (02/20/2024 10:46 AM CDT) TPMT Activity 25.6 Units/mL RBC [facility] Comment: Reference Range: Normal: 15.1 - 26.4 Heterozygous for low TPMT variant: 6.3 - 15.0 Homozygous for low TPMT variant: <6.3 Interpretation [facility] INSURANCE BILL Comment: The above results can be interpreted as Normal for red blood cell Thiopurine Methyltransferase activity. For patients having an intrinsic low level of TPMT, recent RBC transfusion can variably increase their assayed enzymatic activity depending on the amount and circulating half-life of the transfused red blood cells. This test was developed and its performance characteristics determined by [facility]. It has not been cleared or approved by the Food and Drug Administration. This case has been reviewed, approved, interpreted and electronically signed by Kodi Weldon, PhD, [facility]. Methodology [facility] Comment: Enzymatic Endpoint/Liquid Chromatography - Tandem Mass Spectrometry (LC-MS/MS) Blood BLOOD SPECIMEN / Unknown 02/20/2024 10:46 AM CDT 02/20/2024 Narrative Resulting Agency Comment Lab Testing performed at: [employer] [address] [place] [facility] [phone] Nancy Cotto MD LAB - CHEMISTRY TOBY BILLY Performing Organization Address City/[facility]/ZIP Co de Phone Number [facility] [address] [place] [address] * IRON + TIBC PANEL (02/20/2024 10:46 [...] Resulting Agency Comment Lab Testing performed at: [facility] [address] [facility] [phone] Nancy Cotto MD LAB - CHEMISTRY TOBY BILLY Performing Organization Address City/[facility]/ZIP Co de Phone Number [facility] INSURANCE BILL [address] [place] [address] * CBC W AUTO DIFFERENTIAL (02/03/2024 1:03 AM CDT) Only the most recent of2 resultswithin the time period is included. WBC 7.8 4.0 - 10.7 x10E9/L 02/03/2024 1:27 AM CDT [facility] RBC Count 5.03 3.90 - 5.20 x10E12/L 02/03/2024 1:27 AM CDT [facility] Hemoglobin 15.3 11.9 - 15.8 g/dL 02/03/2024 1:27 AM CDT [facility] Hematocrit 42.7 34.8 - 46.1 % 02/03/2024 1:27 AM CDT [facility] MCV 84.9 80.0 - 98.0 fL 02/03/2024 1:27 AM [facility] MCH 30.4 26.7 - 33.6 pg 02/03/2024 1:27 AM [facility] MCHC 35.8 31.7 - 36.3 g/dL 02/03/2024 1:27 AM [facility] RDW-CV 11.7 11.3 - 14.8 % 02/03/2024 1:27 AM [facility] Platelet Count 273 150 - 420 x10E9/L 02/03/2024 1:27 AM [facility] MPV 9.4 7.8 - 11.4 fL 02/03/2024 1:27 AM [facility] Neutrophil % 61.8 41.0 - 74.0 % 02/03/2024 1:27 AM [facility] Lymphocyte % 28.0 17.0 - 47.0 % 02/03/2024 1:27 AM [facility] Monocyte % 7.7 3.0 - 11.0 % 02/03/2024 1:27 AM [facility] Eosinophil % 2.0 0.0 - 7.0 % 02/03/2024 1:27 AM [facility] Basophil % 0.4 0.0 - 1.6 % 02/03/2024 1:27 AM [facility] Immature Granulocytes % 0.1 0.0 - 1.0 % 02/03/2024 1:27 AM [facility] Neutrophil Absolute 4.84 1.60 - 7.50 x10E9/L 02/03/2024 1:27 AM [facility] Lymphocyte Absolute 2.19 1.00 - 4.40 x10E9/L 02/03/2024 1:27 AM [facility] Monocyte Absolute 0.60 0.15 - 1.00 x10E9/L 02/03/2024 1:27 AM [facility] Eosinophil Absolute 0.16 0.00 - 0.60 x10E9/L 02/03/2024 1:27 AM [facility] Basophil Absolute 0.03 0.00 - 0.13 x10E9/L 02/03/2024 1:27 AM [facility] Blood BLOOD SPECIMEN / Unknown Venipuncture / Unknown 02/03/2024 1:03 AM CDT 02/03/2024 1:17 AM CDT Kaylee Reyes MD LAB - HEMATOLOGY ORD ERABLES [facility] [address] [place] [address], [facility] [phone] * (ABNORMAL) COMPREHENSIVE METABOLIC PANEL (02/03/2024 1:03 AM CDT) Only the most recent of2 resultswithin the time period is included. BUN 9 7 - 26 mg/dL 02/03/2024 1:45 AM [facility] Creatinine 0.64 0.56 - 0.96 mg/dL 02/03/2024 1:45 AM [facility] Sodium 139 136 - 145 mmol/L 02/03/2024 1:45 AM [facility] Potassium 3.4(L) 3.5 - 4.5 mmol/L 02/03/2024 1:45 AM [facility] Chloride 107 98 - 107 mmol/L 02/03/2024 1:45 AM [facility] CO2 21(L) 22 - 29 mmol/L 02/03/2024 1:45 AM [facility] Glucose 78 70 - 115 mg/dL 02/03/2024 1:45 AM [facility] Calcium 9.9 8.4 - 10.2 mg/dL 02/03/2024 1:45 AM [facility] Protein Total 7.7 6.0 - 8.3 g/dL 02/03/2024 1:45 AM [facility] Albumin 4.4 3.4 - 5.0 g/dL 02/03/2024 1:45 AM [facility] Bilirubin Total 0.4 0.2 - 1.2 mg/dL 02/03/2024 1:45 AM [facility] Alkaline Phosphatase 81 40 - 150 U/L 02/03/2024 1:45 AM [facility] ALT 58(H) 5 - 55 U/L 02/03/2024 1:45 AM [facility] AST 33 5 - 34 U/L 02/03/2024 1:45 AM [facility] Anion Gap 11 6 - 16 02/03/2024 1:45 AM [facility] BUN/Creatinine Ratio 14 7 - 23 02/03/2024 1:45 AM [facility] Osmolality Calculated 286 275 - 295 mOsm/kg 02/03/2024 1:45 AM [facility] Albumin/Globulin Ratio 1.3 1.1 - 2.3 02/03/2024 1:45 AM [facility] eGFR by CKD-EPI >90 >=90 mL/min/1.7 3 m2 02/03/2024 1:45 AM [facility] Blood BLOOD SPECIMEN / Unknown Venipuncture / Unknown 02/03/2024 1:03 AM CDT 02/03/2024 1:17 AM [facility] Kaylee Reyes MD LAB - CHEMISTRY ORDRei [facility] Organization Address City/State/ZIP Co de Phone Number [facility] [address] [place] [address], [facility] [phone] * (ABNORMAL) URINALYSIS W/MICROSCOPIC NO CULTURE (02/03/2024 12:57 AM T) Color UA Yellow Straw, Yellow 02/03/2024 1:40 AM [facility] Clarity UA t Cloudy(A) Clear 02/03/2024 1:40 AM [facility] Specific Dunlo UA 1.020 1.005 - 1.030 02/03/2024 1:40 AM [facility] pH UA 5.0 5.0 - 8.0 pH 02/03/2024 1:40 AM [facility] Protein UA Negative Negative 02/03/2024 1:40 AM [facility] Glucose UA Negative Negative 02/03/2024 1:40 AM [facility] Ketone UA Negative Negative 02/03/2024 1:40 AM [facility] Bilirubin UA Negative Negative 02/03/2024 1:40 AM CDT [facility] Blood UA Negative Negative 02/03/2024 1:40 AM CDT [facility] Nitrite UA Negative Negative 02/03/2024 1:40 AM CDT [facility] Leukocyte Esterase Negative Negative 02/03/2024 1:40 AM CDT [facility] Urobilinogen UA Negative Negative mg/dL 02/03/2024 1:40 AM CDT [facility] RBC UA 6-10(A) None Seen, 0-2, 3-5 /HPF 02/03/2024 1:40 AM CDT [facility] WBC UA 0-5 None Seen, 0-5 /HPF 02/03/2024 1:40 AM T [facility] Squamous Epithelial Cells UA 6-10(A) None Seen, 0-2, 3-5 /HPF 02/03/2024 1:40 AM CDT [facility] Mucus UA 2+ /LPF 02/03/2024 1:40 AM CDT [facility] Urine URINE SPECIMEN OBTAINED BY CLEAN CATCH PROCEDURE / Unknown Collection / Unknown 02/03/2024 12:57 AM CDT 02/03/2024 1:13 AM CDT Narrative [facility] - 02/03/2024 1:40 AM CDT Kaylee Reyes MD LAB - URINALYSIS ORD ERABLES [facility] [address] [place] [address], [facility] [phone] * CT RENAL STONE (02/03/2024 12:19 AM [...] Dictated by Samy Johnson MD, PhD (residential subcontractor). I, Haylee Lopez MD have personally reviewed and interpreted this examination/study. > Interpreting Provider: Haylee Lopez MD on 02/03/2024 10:15 AM Narrative 02/03/2024 10:15 AM CDT PROCEDURE: CT RENAL STONE, DATE/TIME OF EXAM: 02/03/2024 12:19 AM, LOCATION [facility] INDICATION: R10.9: Flank pain ADDITIONAL CLINICAL INFORMATION: [...] DATE/TIME OF EXAM: 02/03/2024 12:19 AM, LOCATION [facility] INDICATION: R10.9: Flank pain ADDITIONAL CLINICAL INFORMATION: [...] Dictated by Samy Johnson MD, PhD (residential subcontractor). I, Haylee Lopez MD have personally reviewed and interpreted this examination/study. > Interpreting Provider: Haylee Lopez MD on 410:15 AM Kaylee Reyes MD CT ORDERABLES * HCG URINE QUAL POCT NOTIFICATION (06/04/2019 1:02 PM CDT) Comment Notification Label Only - See Separate Report 06/04/2019 1:02 PM CDT [facility] Urine URINE / Unknown 11:47 AM CDT Tarun Garcia MD LAB - URINALYSIS OR DERABLES [facility] [address] [place] [address] * CT ABDOMEN AND PELVIS WITH IV [...] on 06/04/2019 at 1:11 PM Luna Durant BOX PRINTING MACHINE OPERATOR-TICKET WRITER CT ORDERABLES * URINALYSIS REFLEX MICROSCOPIC REFLEX CULTURE (06/04/2019 12:07 PM CDT) Color UA Straw Straw, Yellow 06/04/2019 12:14 PM CDT [facility] Clarity UA Clear Clear 06/04/2019 12:14 PM CDT [facility] Glucose UA Negative Negative 06/04/2019 12:14 PM [facility] Bilirubin UA Negative Negative 06/04/2019 12:14 PM [facility] Ketone UA Negative Negative 06/04/2019 12:14 PM [facility] Specific Dunlo UA 1.006 1.005 - 1.030 06/04/2019 12:14 PM CDT [facility] Blood UA Negative Negative 06/04/2019 12:14 PM [facility] pH UA 7.0 5.0 - 8.0 pH 06/04/2019 12:14 PM [facility] Protein UA Negative Negative 06/04/2019 12:14 PM CDT [facility] Urobilinogen UA Negative Negative mg/dL 06/04/2019 12:14 PM CDT [facility] Nitrite UA Negative Negative 06/04/2019 12:14 PM CDT [facility] Leukocyte UA Negative Negative 06/04/2019 12:14 PM [facility] Urine Microscopy Urine microscopy not indicated 06/04/2019 12:14 PM [facility] Reflex Status Culture not indicated 06/04/2019 12:14 PM CDT [facility] Urine URINE SPECIMEN OBTAINED BY CLEAN CATCH PROCEDURE / Unknown Collection / Unknown 06/04/2019 12:07 PM CDT 06/04/2019 12:09 PM CDT Narrative [facility] - 06/04/2019 12:14 PM CDT Tarun Garcia MD LAB - URINALYSIS OR DERABLES Performing Organization Address City/[facility]/ZIP Co de Phone Number [facility] [address] [place] [address] * HCG URINE QUALITATIVE - POCT (IP) INTERFACED (06/04/2019 12:06 PM CDT) HCG Qual Urine Negative Negative 06/04/2019 12:12 PM CDT [facility] Urine URINE / Unknown 06/04/2019 1 2:06 PM CDT 06/04/2019 12:12 PM CDT Provider Unknown LAB - POINT OF CARE ORDERABLES Performing Organization Address City/[facility]/ZIP Co de Phone Number [facility] [address] [place] [address] * LIPASE BLOOD (06/04/2019 11:56 AM CDT) Lipase 29 8 - 78 U/L 06/04/2019 12:59 PM CDT [facility] Blood BLOOD SPECIMEN / Unknown Venipuncture / Unknown 06/04/2019 11:56 AM CDT 06/04/2019 12:06 PM CDT Luna Durant BOX PRINTING MACHINE OPERATOR-TICKET WRITER LAB - CHEMISTRY O RDERABLES [facility] [address] [place] [address] * RPR (08/27/2016 3:46 PM MECHANICAL INSPECTOR) RPR Non Reactive Non Reactive [facility] ACCOUNT BILL Blood BLOOD SPECIMEN / Unknown 08/27/2016 3:46 PM MECHANICAL INSPECTOR 08/27/2016 Narrative Resulting Agency Comment [facility] [address] [id number] Albert Hutchinson MD LAB - CHEMISTRY TOBY BILLY Performing Organization Address City/[facility]/ZIP Co de Phone Number [facility] ACCOUNT BILL [address] [place] [address] * VITAMIN B6 (08/27/2016 3:46 PM MECHANICAL INSPECTOR) Vitamin B6 14.9 2.0 - 32.8 ug/L [facility] ACCOUNT BILL Blood BLOOD SPECIMEN / Unknown 08/27/2016 3:46 PM MECHANICAL INSPECTOR 08/27/2016 Narrative Resulting Agency Comment [facility] [address] [id number] Albert Hutchinson MD LAB - CHEMISTRY TOBY BILLY Performing Organization Address [facility]/RUST Co de Phone Number [facility] ACCOUNT BILL [address] [place] [address] * VITAMIN B12 FOLATE PANEL (08/27/2016 3:46 PM MECHANICAL INSPECTOR) Vitamin B12 879 211 - 911 pg/mL [facility] ACCOUNT BILL Folate 13.6 3.1 - 17.5 ng/mL [facility] ACCOUNT BILL Blood BLOOD SPECIMEN / Unknown 08/27/2016 3:46 PM MECHANICAL INSPECTOR 08/27/2016 Narrative Resulting Agency Comment [facility] [address] [address] [phone] Albert Hutchinson MD LAB - CHEMISTRY TOBY BILLY Performing Organization Address City/[facility]/[place]UST Co de Phone Number [facility] ACCOUNT BILL [address] [place] [address] * (ABNORMAL) TSH (08/27/2016 3:46 PM MECHANICAL INSPECTOR) TSH 0.280(L) 0.358 - 3.740 uIU/mL [facility] ACCOUNT BILL Blood BLOOD SPECIMEN / Unknown 08/27/2016 3:46 PM MECHANICAL INSPECTOR 08/27/2016 Narrative Resulting Agency Comment [facility] [address] [address] [id number] Albert Hutchinson MD LAB - CHEMISTRY DARIARei WENCESLAO [facility] ACCOUNT BILL [place] [address] * IMAGING/RADIOLOGY/XRAY RESULTS ORDER (10/20/2009 6:02 AM MECHANICAL INSPECTOR) Anatomical Region Laterality Modality Other Narrative 10/20/2009 6:02 AM MECHANICAL INSPECTOR Ordered by an unspecified provider. Transcriptions Document, Scanned - 09/20/2009 12:00 AM MECHANICAL INSPECTOR Scanned Document IMAGING * CHROMOSOME ANALYSIS AMNIO PANEL (08/31/2009 12:00 PM MECHANICAL INSPECTOR) Chromosome Analysis Amniotic Fluid See Scanned Report [facility] Comment Amniotic Fluid [facility] AMNIOTIC FLUID SPECIMEN / Unknown 08/31/2009 12:00 PM MECHANICAL INSPECTOR 08/31/2009 12:40 PM MECHANICAL INSPECTOR Arvin Anderson MD LAB - PATHOLOGY/CYTO LOGY ORDERABLES [facility] [address] [place] [address] Care Teams Supervisor Color Making Relationship Specialty Start Date End Date Damian Sadler MD PCP - General Internal Medicine 07/04/16
--- OUTSIDE RECORDS SUMMARY | 2024-10-20 22:31 | XMS_ITS | Referral Summary ---
Author Organization [facility] [employer] Address [address] [place] [address] Care Team Providers Care Food Supervisor Name Role Phone Damian Sadler MD Primary Care Provider [phone] Source Comments [facility] [employer],non-owned Affiliates and Associated Physician Practices is amultiple site organization consisting of ambulatory clinics and hospital sitesin [place], [place], [place] and [place]. This disclosure is being madepursuant to the Care Everywhere program and may not contain all information available regarding this patient. Last updated 18.[facility] [employer] Allergies Active Allergy Reactions Criticality Noted Date [...] Resulting Agency Comment [facility]: [facility] [address] [facility] [phone] Nancy Cotto MD LAB - CHEMISTRY TOBY BILLY [facility] INSURANCE BILL [address] [place] [address] * (ABNORMAL) COMPREHENSIVE METABOLIC PANEL (02/03/2024 1:03 AM CDT) BUN 9 7 - 26 mg/dL 02/03/2024 1:45 AM [facility] Creatinine 0.64 0.56 - 0.96 mg/dL 02/03/2024 1:45 AM [facility] Sodium 139 136 - 145 mmol/L 02/03/2024 1:45 AM [facility] Potassium 3.4(L) 3.5 - 4.5 mmol/L 02/03/2024 1:45 AM [facility] Chloride 107 98 - 107 mmol/L 02/03/2024 1:45 AM [facility] CO2 21(L) 22 - 29 mmol/L 02/03/2024 1:45 AM [facility] Glucose 78 70 - 115 mg/dL 02/03/2024 1:45 AM [facility] Calcium 9.9 8.4 - 10.2 mg/dL 02/03/2024 1:45 AM [facility] Protein Total 7.7 6.0 - 8.3 g/dL 02/03/2024 1:45 AM [facility] Albumin 4.4 3.4 - 5.0 g/dL 02/03/2024 1:45 AM [facility] Bilirubin Total 0.4 0.2 - 1.2 mg/dL 02/03/2024 1:45 AM [facility] Alkaline Phosphatase 81 40 - 150 U/L 02/03/2024 1:45 AM [facility] ALT 58(H) 5 - 55 U/L 02/03/2024 1:45 AM [facility] AST 33 5 - 34 U/L 02/03/2024 1:45 AM [facility] Anion Gap 11 6 - 16 02/03/2024 1:45 AM [facility] BUN/Creatinine Ratio 14 7 - 23 02/03/2024 1:45 AM [facility] Osmolality Calculated 286 275 - 295 mOsm/kg 02/03/2024 1:45 AM [facility] Albumin/Globulin Ratio 1.3 1.1 - 2.3 02/03/2024 1:45 AM [facility] eGFR by CKD-EPI >90 >=90 mL/min/1.7 3 m2 02/03/2024 1:45 AM [facility] Blood BLOOD SPECIMEN / Unknown Venipuncture / Unknown 02/03/2024 1:03 AM CDT 02/03/2024 1:17 AM [facility] Kaylee Reyes MD LAB - CHEMISTRY TOBY BILLY [facility] Organization Address City/State/ZIP Co de Phone Number [facility] [address] [place] [address], [facility] [phone] from Last 3 Months or Most Recently Relevant to Health Maintenance Care Teams Food Supervisor Relationship Specialty Start Date End Date Damian Sadler MD PCP - General Internal Medicine 07/04/16
--- OUTSIDE RECORDS SUMMARY | 2024-10-20 22:31 | XMS_ITS | Referral Summary ---
Author Organization [facility] Address [address] [place] [address] Care Team Providers Care Staff Occupational Therapist Name Role Phone Lucas Carter DO Primary Care Provider [phone] Allergies Active Allergy Reactions Criticality Noted Date Comments Hydralazine Headache,Vomiting Low 01/21/2024 Ketorolac Hives,Itching Medium 10/17/2017 Tramadol Hives,Urticaria Medium 08/27/2016 Medications omeprazole (PriLOSEC) 20 mg capsuleIndications :Treatment of Non-Bleeding Gastric Disorder Take 1 capsule (20 mg total) by mouth early morning babysitter 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 Active MULTIVIT-MINERALS/ FERROUS FUM (MULTI VITAMIN ORAL)Indications:h ealth Take 1 tablet by mouth early morning babysitter 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 Active ondansetron ODT (ZOFRAN-ODT) 4 [...] tablet (25 mg total) by mouth early morning babysitter 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 Active nebivoloL (BYSTOLIC) 10 mg [...] on file Legal Sex Female 9:06 PM [employer] Gender Identity Female 10/01/2023 8:44 AM [employer]ADER AND TONER Sexual Orientation Straight 10/01/2023 8: 44 AM SHADER AND TONER Last Filed Vital Signs Vital Sign Reading Time Taken Comments Blood Pressure 125/82 06/29/2024 10:05 AM [employer]ER [employer]ONER Pulse 75 06/29/2024 10:05 AM [employer] Temperature 36.2 C (97.2 F) 06/29/2024 9:28 AM [employer]ER AND TONER Respiratory Rate 15 06/29/2024 10:0 5 AM [employer]ER [employer]ONER Oxygen Saturation 96% 06/29/2024 10: 05 AM [employer]ER [employer]ONER Inhaled Oxygen Concentration - - Weight 83.4 kg (183 lb 12.8 oz) 06/29/2024 7:50 AM [employer]ER [employer]ONER Height 160 cm (5' 3 ) 06/29/2024 7:50 AM [employer]ER [employer]ONER Body Mass Index 32.56 06/29/2024 7:50 AM [employer]ADER AND TONER Plan of Treatment Not on file Goals [...] home safety. Medical Devices Implanted Type Area Flexographic Press Set Up Operator Device Identifier Shelf Expiration Date Model / Serial / Lot Screw Left: Elbow Insurance IDPA [facility] CHOICE PLUS [facility] [employer] [place] [employer] [place] Advance Directives For more information, please contact: [phone] * Full Code (Latest Code Status on File) Date Activated Date Inactivated Comments 08/15/2022 3:10 PM 08/18/2022 6:09 PM Care Teams Staff Occupational Therapist Relationship Specialty Start Date End Date Lucas Carter DO PCP - General Internal Medicine 08/15/22
--- OUTSIDE RECORDS SUMMARY | 2024-10-20 22:31 | XMS_ITS | Clinical Summary ---
Author Organization [facility] [employer] Address [address] [place] [address] Care Team Providers Care Director Of Provider Relations Name Role Phone Damian Sadler MD Primary Care Provider [phone] Source Comments [facility] [employer],non-owned Affiliates and Associated Physician Practices is amultiple site organization consisting of ambulatory clinics and hospital sitesin [place], [place], [place] and [place]. This disclosure is being madepursuant to the Care Everywhere program and may not contain all information available regarding this patient. Last updated 18.[facility] [employer] Allergies Active Allergy Reactions Criticality Noted Date [...] Resulting Agency Comment [facility]: [facility] [address] [id number] Nancy Cotto MD LAB - CHEMISTRY TOBY BILLY [facility] INSURANCE BILL [address] [place] [address] * (ABNORMAL) COMPREHENSIVE METABOLIC PANEL (02/03/2024 1:03 AM [facility]) BUN 9 7 - 26 mg/dL 02/03/2024 [...] 1.1 - 2.3 02/03/2024 1:45 AM CDT [facility] eGFR by CKD-EPI >90 >=90 mL/min/1.7 3 m2 02/03/2024 1:45 AM CDT [facility] Blood BLOOD SPECIMEN / Unknown Venipuncture / Unknown 02/03/2024 1:03 AM CDT 02/03/2024 1:17 AM CDT Kaylee Reyes MD LAB - CHEMISTRY TOBY BILLY [facility] [address] [place] [address], [facility] [phone] from Last 3 Months or Most Recently Relevant to Health Maintenance Care Teams Director Of Provider Relations Relationship Specialty Start Date End Date Damian Sadler MD PCP - General Internal Medicine 07/04/16
[2024-10-20 22:34] VITALS: BP 223/132; PULSE 84; RESP 18; TEMP 36.4; O2SAT 98
--- NOTE | 2024-10-20 23:32 | ED_ITS ---
HPI - Recheck/Abnormal Lab/Rx General Chief Complaint: Recheck/Abnormal Lab/Rx <Sabas Elliott PA-C - Last Filed: 10/21/24 17:06> Stated Complaint: lodged kidney stone on left side <Sabas Elliott PA-C - Last Filed: 10/21/24 17:06> Time Seen by Provider: 10/20/24 23:23 <Sabas Elliott PA-C - Last Filed: 10/21/24 17:06> Source: patient <Sabas Elliott PA-C - Last Filed: 10/21/24 17:06> Mode of arrival: ambulatory <ASHA Adams Last Filed: 10/21/24 17:06> Limitations: no limitations <Sabas Elliott PA-C - Last Filed: 10/21/24 17:06> History of Present Illness HPI narrative: This is a 44-year-old female who presents to the ED for chief complaint of right flank pain over the past week. Patient states that she has been to this ER twice this week for right-sided 4 mm kidney stone. She follows with Dr. Gonzalez for stones in the past. States that she has been unable to control pain at home and is feeling nauseous. She has been taking her antibiotics as prescribed although she has not had any fever or systemic signs of infection. Denies diarrhea, chest pain, shortness of breath, cough. <Sabas Elliott PA-C - Last Filed: 10/21/24 17:06> Related Data Home Medications: Home Medications ?Medication ?Instructions ?Recorded ?Confirmed ?Last Taken ?Type multivitamin 1 tablet PO DAILY 04/04/22 10/21/24 10/20/24 History pregabalin 150 mg capsule 150 mg PO Q8H PRN pain 02/21/24 10/21/24 10/20/24 History hydrochlorothiazide 25 mg tablet 25 mg PO DAILY 10/21/24 10/21/24 10/20/24 History nebivolol 10 mg tablet (Bystolic) 10 mg PO DAILY 10/21/24 10/21/24 10/20/24 History <ASHA Adams Last Filed: 10/21/24 17:06> Allergies/Adverse Reactions: Allergies Allergy/AdvReac Type Severity Reaction Status Date / Time ketorolac (From Toradol) Allergy Headache,Rash, Verified 10/20/24 22:39 Swollen tongue tramadol AdvReac Mild VOMITING/HE Verified 10/20/24 22:39 ADACHE hydralazine AdvReac Headache Verified 10/20/24 22:39 <Sabas Elliott PA-C - Last Filed: 10/21/24 17:06> Review of Systems 2 Review of Systems: All systems as dictated in HPI <Sabas Elliott PA-C - Last Filed: 10/21/24 17:06> [facility] Past Medical History Medical History: Medical History Hypertension Gastroesophageal reflux disease Sleep paralysis, recurrent isolated Smoker Obesity Depression Multiple kidney stones Seasonal allergies <Sabas Elliott PA-C - Last Filed: 10/21/24 17:06> Surgical History Surgical History: Surgical History History of laparoscopic cholecystectomy on 04/25/23 PDC History of tubal ligation History of endometrial ablation (2009) History of hysterectomy (2015) History of open reduction and internal fixation (ORIF) procedure (2012) Left elbow. History of section 2000, 2001, 2009 Status post cystoscopy with ureteral stent placement <Sabas Elliott PA-C - Last Filed: 10/21/24 17:06> Family History Family History: Family History Mother Diabetes mellitus Depression Alcoholism Father Hypertension Sibling Congenital heart disease Son Asthma Grandparent Diabetes mellitus Cerebrovascular accident <ASHA Adams Last Filed: 10/21/24 17:06> Social History Social History: Social History Social History: Surrogate medical decision maker: Bang Luke, spouse. Code status: Full code. Smoking packs per day: 0.5 Smoking cigarettes per day: 10.0 Years smoked: 32 Smoking pack-years: 16.00 Smoking status: Current every day smoker Tobacco type: cigarettes Alcohol intake: never Alcohol use details: Social alcohol use in moderation. Substance use: never Substance use type: does not use Do You Feel Safe in your Home?: Yes Lack of Transportation: No Lack of Food: Never True Current Housing: I Have Housing Concerned About Future Housing: No Difficulty Paying Gas/Electric Bills: No Difficulty Paying for Meds: No Currently Unemployed: No Education: High School Diploma/GED Difficulty w/ Childcare or Family Care: No Living arrangements: with family Spiritual care concerns: No <Sabas Elliott PA-C - Last Filed: 10/21/24 17:06> Exam 2 Narrative: GENERAL: Well-appearing, well-nourished, and in no acute distress. HEAD: Normocephalic, atraumatic. EYES: PERRLA and EOMI. ENT: Nares clear, no rhinorrhea or epistaxis. Mucous membranes moist. Oropharynx without tonsillar hypertrophy exudate or other lesions. NECK: Supple. No adenopathy or masses. CHEST: No respiratory distress. Clear to auscultation. No wheezes rales or rhonchi HEART: Regular rate and rhythm. No murmur heard. Normal peripheral pulses. ABDOMEN: Right flank tenderness. Negative left flank tenderness. Soft, otherwise nontender, nondistended, normal active bowel sounds. MSK: Normal range of motion. No edema. SKIN: Warm, dry, no rash. NEURO: Alert and oriented x4. No focal deficits. PSYCH: Normal mood and affect. <Sabas Elliott PA-C - Last Filed: 10/21/24 17:06> Course GUARDIAN FAMILY MEMBER/PA Physician Supervision For this patient encounter, I reviewed the GUARDIAN FAMILY MEMBER or PA documentation, treatment plan, and medical decision making and had [id number] time with this patient. I performed all aspects of the MDM as documented. <Rebekah Dillon MD - Last Filed: 10/21/24 03:19> Vital Signs Vital signs: Vital Signs Temperature 97.5 F L 10/20/24 22:34 Pulse Rate 84 10/20/24 22:34 Respiratory Rate 18 10/20/24 22:34 Blood Pressure 223/132 H 10/20/24 22:34 Pulse Oximetry 98 10/20/24 22:34 Oxygen Delivery Room Air 10/20/24 22:34 Temperature 98.0 F 10/21/24 16:26 Pulse Rate 70 03/12/25 16:48 Respiratory Rate 18 10/21/24 16:26 Blood Pressure 210/132 H 10/21/24 16:26 Pulse Oximetry 93 10/21/24 16:26 Oxygen Delivery Room Air 10/21/24 14:15 Oxygen Flow Rate 2 10/21/24 14:10 <Sabas Elliott PA-C - Last Filed: 10/21/24 17:06> Vital Signs Temperature 97.5 F L 10/20/24 22:34 Pulse Rate 84 10/20/24 22:34 Respiratory Rate 18 10/20/24 22:34 Blood Pressure 223/132 H 10/20/24 22:34 Pulse Oximetry 98 10/20/24 22:34 Oxygen Delivery Room Air 10/20/24 22:34 Temperature 98.0 F 10/21/24 16:26 Pulse Rate 70 10/21/24 16:48 Respiratory Rate 18 10/21/24 16:26 Blood Pressure 210/132 H 10/21/24 16:26 Pulse Oximetry 93 10/21/24 16:26 Oxygen Delivery Room Air 10/21/24 14:15 Oxygen Flow Rate 2 10/21/24 14:10 <Rebekah Dillon MD - Last Filed: 10/21/24 03:19> MDM - Recheck/Abnormal Lab/Rx MDM Narrative Medical decision making narrative: This is a 44-year-old female who presents to the ED for chief complaint of right flank pain x1 week. This is her 3rd visit this week for the same ureteral stone. Vitals show elevated blood pressure on arrival. Exam remarkable for the above. Lab work shows normal white see kidney function preserved with creatinine of 0.63. Urinalysis shows evidence of some dehydration but no UTI. CT abdomen pelvis without contrast today from Stat Rad read shows there are small bilateral renal calcifications. There is mild right hydronephrosis due to a 5 mm calculus at the UPJ. Patient has gone through multiple rounds of pain medications here and is still uncomfortable. I spoke with urologist, Dr. Cabral recommends admission to the hospitalist keeping the patient NPO. They will likely proceed procedurally remove this stone in the coming morning. Patient is understanding and agreeable with the plan. She does not feel well enough to go home today and would like to stay in the hospital. Case was discussed with the on-call GUARDIAN FAMILY MEMBER moe at 0315 and she accepted admission. <Sabas Elliott PA-C - Last Filed: 10/21/24 17:06> This is a 44-year-old female who presents to the ED for chief complaint of right flank pain x1 week. This is her 3rd visit this week for the same ureteral stone. Vitals show elevated blood pressure on arrival. Exam remarkable for the above. Lab work shows normal white see kidney function preserved with creatinine of 0.63. Urinalysis shows evidence of some dehydration but no UTI. CT abdomen pelvis without contrast today from Stat Rad read shows there are small bilateral renal calcifications. There is mild right hydronephrosis due to a 5 mm calculus at the UPJ. Patient has gone through multiple rounds of pain medications here and is still uncomfortable. I spoke with urologist, Dr. Cabral recommends admission to the hospitalist keeping the patient NPO. They will likely proceed usually remove this stone in the coming morning. Patient is understanding and agreeable with the plan. She does not feel well enough to go home today and would like to stay in the hospital. Case was discussed with the on-call GUARDIAN FAMILY MEMBER moe at 0315 and she accepted admission. <Rebekah Dillon MD - Last Filed: 10/21/24 03:19> Lab Data Result diagrams: 10/21/24 06:37 10/21/24 06:37 <Sabas Elliott PA-C - Last Filed: 10/21/24 17:06> Labs: Lab Results 10/20/24 10/20/24 Range/Units 23:35 23:38 WBC 6.8 (4.5-10.0) K/mm3 RBC 4.69 (4.2-5.4) M/mm3 Hgb 14.6 (12.0-15.0) g/dL Hct 41.4 (37.0-47.0) % MCV 88.3 (80-100) fl MCH 31.1 (26-34) pg MCHC 35.3 (32-36) g/dl RDW 12.8 (11.5-14.5) % Plt Count 224 (150-375) k/mm3 MPV 9.5 (7.4-10.4) fl Immature Gran % (Auto) 0.1 (0-0.5) % Neut % (Auto) 45.8 (45.5-73.1) % Lymph % (Auto) 39.7 (18.3-44.2) % [place] % (Auto) 11.3 H (2.6-8.5) % Eos % (Auto) 2.5 (0-4.4) % Baso % (Auto) 0.6 (0.2-1.2) % Lymph # (Auto) 2.68 (0.9-3.2) K/mm3 [place] # (Auto) 0.8 H (0.1-0.6) K/mm3 Eos # (Auto) 0.2 (0-0.3) K/mm3 Baso # (Auto) 0.0 (0.0-0.1) K/mm3 Abs Immat Gran (auto) 0.01 (0.00-0.031) K/mm3 Absolute Neuts (auto) 3.1 (1.3-6.7) K/mm3 Absolute Nucleated RBC 0.000 (0.0-0.012) K/mm3 Nucleated RBC % 0.0 (0.0-0.2) % Sodium 140 (137-145) mmol/L Potassium 3.8 (3.4-5.0) mmol/L Chloride 107 (98-107) mmol/L Carbon Dioxide 21 L (22-30) mmol/L Anion Gap 12 (4-12) mmol/L BUN 16 (7-17) mg/dL Creatinine 0.63 L (0.7-1.0) mg/dL Estim Creat Clear Calc 98 ml/min Estimated GFR > 60 (59 - ) Glucose 101 (65-110) mg/dL Calcium 9.5 (8.4-10.2) mg/dL Magnesium 1.8 (1.6-2.3) mg/dL Total Bilirubin 0.3 (0.2-1.3) mg/dL AST 33 (14-36) U/L ALT 39 H (6-35) U/L Alkaline Phosphatase 82 (38-126) U/L Total Protein 7.0 (6.3-8.2) g/dL Albumin 4.4 (3.5-5.1) g/dL Lipase 112 (23-300) U/L Urine Color Yellow (Yellow) Urine Appearance Clear (Clear) Urine pH 5.5 (5.0-9.0) Ur Specific [place] 1.036 H (1.001-1.035) Urine Protein Trace (Negative) mg/dL Urine Glucose (UA) Negative (Negative) mg/dL Urine Ketones Trace H (Negative) mg/dL Ur Blood (Man) 1+ H (Negative) Urine Nitrate Negative (Negative) Urine Bilirubin Negative (Negative) Urine Urobilinogen 1.0 (<2.0) mg/dL Leukocyte Esterase Rfl Negative (Negative) ALEKSANDRA/UL Urine RBC 11-20 H (0-2) /hpf Urine WBC 6-10 H (0-3) /hpf Ur Squamous Epith Cells Few (Few) /hpf Urine Bacteria Rare /hpf Urine Casts 0-2 POC Urine HCG, Qual Negative (Negative) <Sabas Elliott PA-C - Last Filed: 10/21/24 17:06> Lab Results 10/20/24 10/20/24 Range/Units 23:35 23:38 WBC 6.8 (4.5-10.0) K/mm3 RBC 4.69 (4.2-5.4) M/mm3 Hgb 14.6 (12.0-15.0) g/dL Hct 41.4 (37.0-47.0) % MCV 88.3 (80-100) fl MCH 31.1 (26-34) pg MCHC 35.3 (32-36) g/dl RDW 12.8 (11.5-14.5) % Plt Count 224 (150-375) k/mm3 MPV 9.5 (7.4-10.4) fl Immature Gran % (Auto) 0.1 (0-0.5) % Neut % (Auto) 45.8 (45.5-73.1) % Lymph % (Auto) 39.7 (18.3-44.2) % [place] % (Auto) 11.3 H (2.6-8.5) % Eos % (Auto) 2.5 (0-4.4) % Baso % (Auto) 0.6 (0.2-1.2) % Lymph # (Auto) 2.68 (0.9-3.2) K/mm3 [place] # (Auto) 0.8 H (0.1-0.6) K/mm3 Eos # (Auto) 0.2 (0-0.3) K/mm3 Baso # (Auto) 0.0 (0.0-0.1) K/mm3 Abs Immat Gran (auto) 0.01 (0.00-0.031) K/mm3 Absolute Neuts (auto) 3.1 (1.3-6.7) K/mm3 Absolute Nucleated RBC 0.000 (0.0-0.012) K/mm3 Nucleated RBC % 0.0 (0.0-0.2) % Sodium 140 (137-145) mmol/L Potassium 3.8 (3.4-5.0) mmol/L Chloride 107 (98-107) mmol/L Carbon Dioxide 21 L (22-30) mmol/L Anion Gap 12 (4-12) mmol/L BUN 16 (7-17) mg/dL Creatinine 0.63 L (0.7-1.0) mg/dL Estim Creat Clear Calc 98 ml/min Estimated GFR > 60 (59 - ) Glucose 101 (65-110) mg/dL Calcium 9.5 (8.4-10.2) mg/dL Magnesium 1.8 (1.6-2.3) mg/dL Total Bilirubin 0.3 (0.2-1.3) mg/dL AST 33 (14-36) U/L ALT 39 H (6-35) U/L Alkaline Phosphatase 82 (38-126) U/L Total Protein 7.0 (6.3-8.2) g/dL Albumin 4.4 (3.5-5.1) g/dL Lipase 112 (23-300) U/L Urine Color Yellow (Yellow) Urine Appearance Clear (Clear) Urine pH 5.5 (5.0-9.0) Ur Specific [place] 1.036 H (1.001-1.035) Urine Protein Trace (Negative) mg/dL Urine Glucose (UA) Negative (Negative) mg/dL Urine Ketones Trace H (Negative) mg/dL Ur Blood (Man) 1+ H (Negative) Urine Nitrate Negative (Negative) Urine Bilirubin Negative (Negative) Urine Urobilinogen 1.0 (<2.0) mg/dL Leukocyte Esterase Rfl Negative (Negative) ALEKSANDRA/UL Urine RBC 11-20 H (0-2) /hpf Urine WBC 6-10 H (0-3) /hpf Ur Squamous Epith Cells Few (Few) /hpf Urine Bacteria Rare /hpf Urine Casts 0-2 POC Urine HCG, Qual Negative (Negative) <Rebekah Dillon MD - Last Filed: 10/21/24 03:19> Discharge Plan Discharge Clinical Impression: Calculus of proximal right ureter <Sabas Elliott PA-C - Last Filed: 10/21/24 17:06> Patient Disposition: Still a Patient <Sabas Elliott PA-C - Last Filed: 10/21/24 17:06> Condition: Stable <Sabas Elliott PA-C - Last Filed: 10/21/24 17:06>
[2024-10-20] MEDS: SODIUM CHLORIDE 0.9% IV 1,000 ML 999 ML IV CONT (23:33)
[2024-10-20] MEDS: ONDANSETRON INJ 4 MG/2 ML VIAL IV PUSH (23:33)
[2024-10-20] MEDS: MORPHINE SULFATE (*CRX) 2 MG/ML INJ IV PUSH (23:34)
[2024-10-20 23:40] LABS: BEDSIDEPREGUCG Negative (Negative)
[2024-10-20 23:42] LABS: Basophils Percent Auto 0.6 % (0.2-1.2); Eosinophils Absolute Auto 0.2 K/mm3 (0-0.3); Eosinophils Percent Auto 2.5 % (0-4.4); Hematocrit 41.4 % (37.0-47.0); Hemoglobin 14.6 g/dL (12.0-15.0); Immature Granulocyte Absolute 0.01 K/mm3 (0.00-0.031); Immature Granulocyte Percent A 0.1 % (0-0.5); Lymphocytes Absolute Auto 2.68 K/mm3 (0.9-3.2); Lymphocytes Percent Auto 39.7 % (18.3-44.2); Mean Corpuscular HGB Conc 35.3 g/dl (32-36); Mean Corpuscular Hemoglobin 31.1 pg (26-34); Mean Corpuscular Volume 88.3 fl (80-100); Mean Platelet Volume 9.5 fl (7.4-10.4); Monocytes Absolute Auto 0.8 K/mm3 (0.1-0.6); Monocytes Percent Auto 11.3 % (2.6-8.5); Neutrophils Absolute Auto 3.1 K/mm3 (1.3-6.7); Neutrophils Percent Auto 45.8 % (45.5-73.1); Platelet Count Result 224 k/mm3 (150-375); Red Blood Count 4.69 M/mm3 (4.2-5.4); Red Cell Distribution Width 12.8 % (11.5-14.5); White Blood Count 6.8 K/mm3 (4.5-10.0)
[2024-10-20 23:55] LABS: Alanine Aminotransferase 39 U/L (6-35); Albumin Level 4.4 g/dL (3.5-5.1); Alkaline Phosphatase 82 U/L (38-126); Anion Gap 12 mmol/L (4-12); Aspartate Amino Transferase 33 U/L (14-36); Bilirubin,Total 0.3 mg/dL (0.2-1.3); Blood Urea Nitrogen 16 mg/dL (7-17); Calcium 9.5 mg/dL (8.4-10.2); Carbon Dioxide 21 mmol/L (22-30); Chloride 107 mmol/L (98-107); Estimated CRCL calculation 98 ml/min; Estimated Glomerular Filt Rate > 60; Glucose 101 mg/dL (65-110); Lipase 112 U/L (23-300); Magnesium 1.8 mg/dL (1.6-2.3); Potassium 3.8 mmol/L (3.4-5.0); Sodium 140 mmol/L (137-145)
[2024-10-20 23:57] LABS: Add Urine Microscopic? YES; Appearance Urine Clear (Clear); Bacteria Urine Rare /hpf; Bilirubin Urine Negative (Negative); Blood Urine 1+ (Negative); Color Urine Yellow (Yellow); Glucose Urine UA Negative (Negative); Ketones Urine Trace mg/dL (Negative); Leukocyte Esterase Ur Negative LEU/UL (Negative); Nitrate Urine Negative (Negative); Non Pathogenic Casts 0-2; Protein Urine Trace mg/dL (Negative); Specific Grav Ur 1.036 (1.001-1.035); Squamous Epithelial Cell Urine Few /hpf (Few); pH Urine 5.5 (5.0-9.0)
[2024-10-21] VITALS (24 sets, daily range): BP systolic 119–210; BP diastolic 77–138; PULSE 59–78; RESP 13–20; TEMP 35.7–36.7; O2SAT 93–98; BMI 34.7
--- OUTSIDE RECORDS SUMMARY | 2024-10-21 00:34 | XMS_ITS | Referral Summary ---
Author Organization [facility] Address [address] [place] [address] Care Team Providers Care Slice Plug Cutter Operator Name Role Phone Damian Sadler MD Primary Care Provider [phone] Source Comments [facility],non-owned Affiliates and Associated Physician Practices is amultiple site organization consisting of ambulatory clinics and hospital sitesin [place], [place], [place] and [place]. This disclosure is being madepursuant to the Care Everywhere program and may not contain all information available regarding this patient. Last updated 18.[facility] Allergies Active Allergy Reactions Criticality Noted Date [...] Resulting Agency Comment Lab Testing performed at: [facility] [address] [id number] Nancy Cotto MD LAB - CHEMISTRY TOBY BILLY [facility] INSURANCE BILL [address] [place] [address] * (ABNORMAL) COMPREHENSIVE METABOLIC PANEL (02/03/2024 1:03 AM CDT) BUN 9 7 - 26 mg/dL 02/03/2024 1:45 AM [facility] Creatinine 0.64 0.56 - 0.96 mg/dL 02/03/2024 1:45 AM [facility] Sodium 139 136 - 145 mmol/L 02/03/2024 1:45 AM [facility] Potassium 3.4(L) 3.5 - 4.5 mmol/L 02/03/2024 1:45 AM [facility] Chloride 107 98 - 107 mmol/L 02/03/2024 1:45 AM [facility] CO2 21(L) 22 - 29 mmol/L 02/03/2024 1:45 AM [facility] Glucose 78 70 - 115 mg/dL 02/03/2024 1:45 AM [facility] Calcium 9.9 8.4 - 10.2 mg/dL 02/03/2024 1:45 AM [facility] Protein Total 7.7 6.0 - 8.3 g/dL 02/03/2024 1:45 AM [facility] Albumin 4.4 3.4 - 5.0 g/dL 02/03/2024 1:45 AM [facility] Bilirubin Total 0.4 0.2 - 1.2 mg/dL 02/03/2024 1:45 AM [facility] Alkaline Phosphatase 81 40 - 150 U/L 02/03/2024 1:45 AM [facility] ALT 58(H) 5 - 55 U/L 02/03/2024 1:45 AM [facility] AST 33 5 - 34 U/L 02/03/2024 1:45 AM [facility] Anion Gap 11 6 - 16 02/03/2024 1:45 AM [facility] BUN/Creatinine Ratio 14 7 - 23 02/03/2024 1:45 AM [facility] Osmolality Calculated 286 275 - 295 mOsm/kg 02/03/2024 1:45 AM [facility] Albumin/Globulin Ratio 1.3 1.1 - 2.3 02/03/2024 1:45 AM [facility] eGFR by CKD-EPI >90 >=90 mL/min/1.7 3 m2 02/03/2024 1:45 AM [facility] Blood BLOOD SPECIMEN / Unknown Venipuncture / Unknown 02/03/2024 1:03 AM CDT 02/03/2024 1:17 AM [facility] Kaylee Reyes MD LAB - CHEMISTRY TOBY BILLY [facility] Organization Address City/State/ZIP Co de Phone Number [facility] [address] [place] [address], [facility] [phone] from Last 3 Months or Most Recently Relevant to Health Maintenance Care Teams Slice Plug Cutter Operator Relationship Specialty Start Date End Date Damian Sadler MD PCP - General Internal Medicine 07/04/16
--- OUTSIDE RECORDS SUMMARY | 2024-10-21 00:34 | XMS_ITS | CONTINUITY OF CARE DOCUMENT ---
Author Name [email or web address] Address Unknown Organization [facility] Address [address] [place] [address] Phone [phone] Care Team Providers Care Outside Barrel Lathe Operator Name Role Phone William CURIEL, Herlinda Unavailable SHAWNEE CURIEL, NABIL Schmidt Unavailable [phone] INSURANCE PROVIDERS Payer name Policy type / Coverage type Bj red constitution party ID [employer] Medicaid [id number] [facility] [id number]
--- OUTSIDE RECORDS SUMMARY | 2024-10-21 00:34 | XMS_ITS | Clinical Summary ---
Author Organization [facility] Address [address] [place] [address] Care Team Providers Care Corporate Investigator Name Role Phone Damian Sadler MD Primary Care Provider [phone] Source Comments [facility],non-owned Affiliates and Associated Physician Practices is amultiple site organization consisting of ambulatory clinics and hospital sitesin [place], [place], [place] and [place]. This disclosure is being madepursuant to the Care Everywhere program and may not contain all information available regarding this patient. Last updated 18.[facility] Allergies Active Allergy Reactions Criticality Noted Date [...] Resulting Agency Comment [facility] at: [facility] [address] [id number] Nancy Cotto MD LAB - CHEMISTRY TOBY BILLY [facility] INSURANCE BILL [address] [place] [address] * (ABNORMAL) COMPREHENSIVE METABOLIC PANEL (02/03/2024 1:03 AM [facility]) BUN 9 7 - 26 mg/dL 02/03/2024 1:45 AM [facility] Creatinine 0.64 0.56 - 0.96 mg/dL 02/03/2024 1:45 AM [facility] Sodium 139 136 - 145 mmol/L 02/03/2024 1:45 AM [facility] Potassium 3.4(L) 3.5 - 4.5 mmol/L 02/03/2024 1:45 AM [facility] Chloride 107 98 - 107 mmol/L 02/03/2024 1:45 AM [facility] CO2 21(L) 22 - 29 mmol/L 02/03/2024 1:45 AM [facility] Glucose 78 70 - 115 mg/dL 02/03/2024 1:45 AM [facility] Calcium 9.9 8.4 - 10.2 mg/dL 02/03/2024 1:45 AM [facility] Protein Total 7.7 6.0 - 8.3 [...] 1.1 - 2.3 02/03/2024 1:45 AM CDT [facility] eGFR by CKD-EPI >90 >=90 mL/min/1.7 3 m2 02/03/2024 1:45 AM CDT [facility] Blood BLOOD SPECIMEN / Unknown Venipuncture / Unknown 02/03/2024 1:03 AM CDT 02/03/2024 1:17 AM CDT Kaylee Reyes MD LAB - CHEMISTRY TOBY BILLY [facility] [address] [place] [address], [facility] [phone] from Last 3 Months or Most Recently Relevant to Health Maintenance Care Teams Corporate Investigator Relationship Specialty Start Date End Date Damian Sadler MD PCP - General Internal Medicine 07/04/16
--- OUTSIDE RECORDS SUMMARY | 2024-10-21 00:34 | XMS_ITS | Patient Health Summary ---
Author Organization [facility] Address [address] [place] [address] Care Team Providers Care Wheelchair Rental Clerk Name Role Phone Damian Sadler MD Primary Care Provider [phone] [facility],non-owned Affiliates and Associated Physician Practices is amultiple site organization consisting of ambulatory clinics and hospital sitesin [place], [place], [place] and [place]. This disclosure is being madepursuant to the Care Everywhere program and may not contain all information available regarding this patient. Last updated 18.[facility] Allergies * Hydralazine(Vomiting) * Ketorolac(Itching) * Tramadol(Urticaria) [...] M54.2: Cervicalgia R53.83: Other fatigue Z79.899: Other joint terminal attack controller (current) 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 Additional History: COMPARISON: None. [...] M54.2: Cervicalgia R53.83: Other fatigue Z79.899: Other mcc (current) 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 Additional History: COMPARISON: None. [...] M54.2: Cervicalgia. R53.83: Other fatigue. Z79.899: Other mcc (current) 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. Additional History: COMPARISON: None. [...] M54.2: Cervicalgia. R53.83: Other fatigue. Z79.899: Other joint terminal attack controller (current) 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. Additional History: COMPARISON: None. [...] M54.2: Cervicalgia. R53.83: Other fatigue. Z79.899: Other joint terminal attack controller (current) 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. Additional History: COMPARISON: None. [...] M54.2: Cervicalgia. R53.83: Other fatigue. Z79.899: Other joint terminal attack controller (current) 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. Additional History: COMPARISON: None. [...] Resulting Agency Comment Lab Testing performed at: [facility] [address] [facility] [phone] Nancy Cotto MD LAB - CHEMISTRY TOBY BILLY [facility] Organization Address City/State/ZIP Co de Phone Number [facility] INSURANCE BILL [address] [place] [address] * HEPATITIS SCREEN ACUTE ([facility]) (02/20/2024 10:47 [...] Resulting Agency Comment Lab Testing performed at: [facility] [address] [facility] [phone] Nancy Cotto MD LAB - CHEMISTRY TOBY BILLY [facility] INSURANCE BILL [address] [place] [address] * RHEUMATOID ARTHRITIS 14-3-3 ETA (02/20/2024 10:47 AM CDT) 14.3.3 eta Protein <0.20 ng/mL [facility] INSURANCE BILL Comment: Reference Range: < 0.20 Comments: 14-3-3 eta protein is a joint-derived, proinflammatory plastic tile layer that is implicated in the joint erosion [...] et al. 14-3-3 eta is a novel plastic tile layer associated with the pathogenesis of rheumatoid arthritis and joint damage. Arthritis Res Ther 2014;16:R99. This test was developed and its performance characteristics determined by [employer]. It has not been cleared or approved by the Food and Drug Administration. Blood BLOOD SPECIMEN / Unknown 02/20/2024 10:47 AM CDT 02/20/2024 Narrative Resulting Agency Comment Lab Testing performed at: [facility] [address] [place] [address] [phone] Nancy Cotto MD LAB - CHEMISTRY ORDE RABLES Performing Organization Address [facility]/ZIP Co de Phone Number [facility] INSURANCE BILL [address] [place] [address] * INTERPRETATION REFLEXED (02/20/2024 10:47 AM CDT) Interpretation [facility] INSURANCE BILL Comment: Not infected with HCV unless early or acute infection is suspected (which may be delayed in an immunocompromised individual), or other evidence exists to indicate HCV infection. 02/20/2024 10:4 7 AM CDT 02/20/2024 Narrative Resulting Agency Comment Lab Testing performed at: [facility] [address] [facility] [phone] Nancy Cotto MD LAB - SEROLOGY ORDER ROLANDA Performing Organization Address City/[facility] Co de Phone Number [facility] INSURANCE BILL [address] [place] [address] * (ABNORMAL) IMMUNOFIXATION BLOOD (02/20/2024 10:47 AM [...] Resulting Agency Comment Lab Testing performed at: [facility] [address] [facility] [phone] Nancy Cotto MD LAB - CHEMISTRY TOBY BILLY [facility] INSURANCE BILL [address] [place] [address] * RHEUMATOID FACTOR BLOOD QUANTITATIVE (02/20/2024 10:47 AM CDT) Rheumatoid Factor <10.0 <14.0 IU/mL [facility] INSURANCE BILL Blood BLOOD SPECIMEN / Unknown 02/20/2024 10:47 AM CDT 02/20/2024 Narrative Resulting Agency Comment Lab Testing performed at: [address] [phone] Nancy Cotto MD LAB - CHEMISTRY TOBY BILLY Performing Organization Address [facility]/ZIP Co de Phone Number [facility] INSURANCE BILL [address] [place] [address] * C-REACTIVE PROTEIN (02/20/2024 10:47 AM CDT) Only the most recent of2 resultswithin the time period is included. C-Reactive Protein <1 0 - 10 mg/L [facility] INSURANCE BILL Blood BLOOD SPECIMEN / Unknown 02/20/2024 10:47 AM CDT 02/20/2024 Narrative Resulting Agency Comment Lab Testing performed at: [facility] [address] [facility] [phone] Nancy Cotto MD LAB - CHEMISTRY TOBY BILLY [facility] INSURANCE BILL [address] [place] [address] * HLA TYPING B27 (02/20/2024 10:47 AM CDT) HLA-B27 Negative [facility] INSURANCE BILL Comment: HLA-B*27 Negative B27 allele interpretation for all loci based on IMGT/HLA database version 3.51.0 This test was developed and its performance characteristics determined by [employer]. It has not been cleared or approved by the Food and Drug Administration. HLA Lab CLIA ID Number [id number] This test was performed using Polymerase Chain Reaction (PCR) and Sequence Specific Oligonucleotide Probes (SSOP) technique. Sequence Based Typing (SBT) may be used as a supplemental method when necessary. If you have questions, please call [facility] customer service at or email at [email or web address]. Blood BLOOD SPECIMEN / Unknown 02/20/2024 10:47 AM CDT 02/20/2024 Narrative Resulting Agency Comment Lab Testing performed at: [place] [id number] [facility] [phone] Nancy Cotto MD LAB - CHEMISTRY TOBY BILLY Performing Organization Address City/[facility]/ZIP Co de Phone Number [facility] INSURANCE BILL [address] [place] [address] * ANGIOTENSIN CONVERTING ENZYME BLOOD (02/20/2024 10:47 AM CDT) Angiotensin-Con verting Enzyme 77 14 - 82 U/L [facility] Blood BLOOD SPECIMEN / Unknown 02/20/2024 10:47 AM CDT 02/20/2024 Narrative Resulting Agency Comment Lab Testing performed at: [place] [id number] [facility] [phone] Nancy Cotto MD LAB - CHEMISTRY TOBY BILLY Performing Organization Address City/[facility]/ZIP Co de Phone Number [facility] INSURANCE BILL [address] [place] [address] * ALDOLASE (02/20/2024 10:47 AM CDT) Aldolase 6.9 3.3 - 10.3 U/L [facility] INSURANCE BILL Blood BLOOD SPECIMEN / Unknown 02/20/2024 10:47 AM CDT 02/20/2024 Narrative Resulting Agency Comment Lab Testing performed at: [place] [id number] [facility] [phone] Nancy Cotto MD LAB - CHEMISTRY TOBY BILLY Performing Organization Address [facility]/ZIP Co de Phone Number [facility] INSURANCE BILL [address] [place] [address] * CYCLIC CITRULLINATED PEPTIDE(CCP) AB IGG (02/20/2024 10:47 AM CDT) CCP Antibodies IgG/IgA <20 <20 Units [facility] INSURANCE BILL Comment: Negative: <20 Weak Positive: 20-39 Moderate Positive: 40-59 Strong Positive: >59 Blood BLOOD SPECIMEN / Unknown 02/20/2024 10:47 AM CDT 02/20/2024 Narrative Resulting Agency Comment Lab Testing performed at: [facility] [address] [place] [address] [phone] Nancy Cotto MD LAB - CHEMISTRY TOBY BILLY Performing Organization Address [facility] Co de Phone Number [facility] INSURANCE BILL [address] [place] [address] * ERYTHROCYTE SEDIMENTATION RATE (02/20/2024 10:47 AM CDT) Only the most recent of2 resultswithin the time period is included. Erythrocyte Sedimentation Rate Westergren 10 0 - 32 mm/hr [facility] INSURANCE BILL Blood BLOOD SPECIMEN / Unknown 02/20/2024 10:47 AM CDT 02/20/2024 Narrative Resulting Agency Comment Lab Testing performed at: [facility] [address] [facility] [phone] Nancy Cotto MD LAB - HEMATOLOGY ORD ERABLES Performing Organization Address City/[facility]/ZIP Co de Phone Number [facility] INSURANCE BILL [address] [place] [address] * COMPLEMENT C4 (02/20/2024 10:47 AM CDT) Complement C4 26 14 - 44 mg/dL [facility] INSURANCE BILL Blood BLOOD SPECIMEN / Unknown 02/20/2024 10:47 AM CDT 02/20/2024 Narrative Resulting Agency Comment Lab Testing performed at: [facility] [address] [facility] [phone] Nancy Cotto MD LAB - SEROLOGY ORDER ROLANDA [facility] INSURANCE BILL [address] [place] [address] * CK BLOOD (02/20/2024 10:47 AM CDT) Pathologist [facility] CK 73 32 - 182 U/L [facility] INSURANCE BILL Blood BLOOD SPECIMEN / Unknown 02/20/2024 10:47 AM CDT 02/20/2024 Narrative Resulting Agency Comment Lab Testing performed at: [facility] [place] [address] [facility] [phone] Nancy Cotto MD LAB - CHEMISTRY ORDE RABLES Performing Organization Address City/[facility]/ZIP Co de Phone Number [facility] INSURANCE BILL [address] [place] [address] * PROTEIN ELECTROPHORESIS BLOOD (02/20/2024 10:47 AM CDT) Only the most recent of2 resultswithin the time period is included. Pathologist [facility] Protein Total 6.7 6.0 - 8.5 g/dL [facility] INSURANCE BILL Albumin 3.8 2.9 - 4.4 g/dL [facility] INSURANCE BILL Alpha-1 Globulin 0.2 0.0 - 0.4 g/dL [facility] INSURANCE BILL Shove-6-Vktuargm 0.6 0.4 - 1.0 g/dL [facility] INSURANCE [...] scan will follow via computer, mail, or audit analyst delivery. P E Interpretation, S [facility] INSURANCE BILL Comment: The SPE pattern appears unremarkable. Evidence of monoclonal protein is not apparent. Blood BLOOD SPECIMEN / Unknown 02/20/2024 10:47 AM CDT 02/20/2024 Narrative Resulting Agency Comment Lab Testing performed at: [facility] [place] [address] [facility] [phone] Nancy Cotto MD LAB - CHEMISTRY TOBY BILLY Performing Organization Address [facility]/ZIP Co de Phone Number [facility] INSURANCE BILL [address] [place] [address] * (ABNORMAL) COMPLEMENT C3 (02/20/2024 10:47 AM CDT) Complement C3 187(H) 82 - 167 mg/dL [facility] INSURANCE BILL Blood BLOOD SPECIMEN / Unknown 02/20/2024 10:47 AM CDT 02/20/2024 Narrative Resulting Agency Comment Lab Testing performed at: [facility] [address] [facility] [phone] Nancy Cotto MD LAB - CHEMISTRY TOBY BILLY Performing Organization Address [facility]/ZIP Co de Phone Number [facility] INSURANCE BILL [address] [place] [address] * MERLIN PANEL COMPREHENSIVE (02/20/2024 10:46 AM CDT) Anti-dsDNA Quantitative <1 0 - 9 IU/mL [facility] INSURANCE BILL Comment: Negative <5 Equivocal 5 - 9 Positive >9 ASSISTANT SPA MANAGER Antibody 0.2 0.0 - 0.9 AI [...] Sm (anti-Tellez) SLE 15 - 30% --------- ASSISTANT SPA MANAGER Mixed Connective Tissue Disease 95% (U1 nRNP, SLE 30 - 50% anti-ribonucleoprotein) Polymyositis and/or Dermatomyositis 20% --------- Scl-70 (antiDNA Scleroderma (diffuse) 20 - 35% topoisomerase) Crest 13% --------- Lorna-1 Polymyositis and/or Dermatomyositis 20 - 40% --------- Centromere B Scleroderma - Crest variant 80% Blood BLOOD SPECIMEN / Unknown 02/20/2024 10:46 AM CDT 02/20/2024 Narrative Resulting Agency Comment Lab Testing performed at: [facility] [address] [facility] [phone] Nancy Cotto MD LAB - SEROLOGY ORDER ROLANDA [facility] INSURANCE BILL [address] [place] [address] * ANCA VASCULITIS PANEL (02/20/2024 10:46 AM [...] up testing of positive sera with both CO-3 and MPO-ANCA enzyme immunoassays. As many as [...] Resulting Agency Comment Lab Testing performed at: [address] [phone] Nancy Cotto MD LAB - CHEMISTRY TOBY BILLY [facility] [address] [place] [address] * THIOPURINE METHYLTRANSFERASE (02/20/2024 10:46 AM CDT) TPMT Activity 25.6 Units/mL RBC [facility] Comment: Reference Range: Normal: 15.1 - 26.4 Heterozygous for low TPMT variant: 6.3 - 15.0 Homozygous for low TPMT variant: <6.3 Interpretation [facility] INSURANCE BILL Comment: The above results can be interpreted as Normal for red blood cell Thiopurine Methyltransferase activity. For patients having an intrinsic low level of TPMT, recent RBC transfusion can variably increase their assayed enzymatic activity depending on the amount and circulating half-life of the transfused red blood cells. This test was developed and its performance characteristics determined by [facility]. It has not been cleared or approved by the Food and Drug Administration. This case has been reviewed, approved, interpreted and electronically signed by Kodi Weldon, PhD, [facility]. Methodology [facility] Comment: Enzymatic Endpoint/Liquid Chromatography - Tandem Mass Spectrometry (LC-MS/MS) Blood BLOOD SPECIMEN / Unknown 02/20/2024 10:46 AM CDT 02/20/2024 Narrative Resulting Agency Comment Lab Testing performed at: [facility] [phone] Nancy Cotto MD LAB - CHEMISTRY TOBY BILLY Performing Organization Address City/[facility]/ZIP Co de Phone Number [facility]ILL [address] [place] [address] * IRON + TIBC PANEL (02/20/2024 10:46 [...] Resulting Agency Comment Lab Testing performed at: [employer] [place] [address] [facility] [phone] Nancy Cotto MD LAB - CHEMISTRY TOBY BLILY Performing Organization Address City/[facility]/ZIP Co de Phone Number [facility] INSURANCE BILL [address] [place] [address] * CBC W AUTO DIFFERENTIAL (02/03/2024 1:03 AM CDT) Only the most recent of2 resultswithin the time period is included. WBC 7.8 4.0 - 10.7 x10E9/L 02/03/2024 1:27 AM CDT [facility] RBC Count 5.03 3.90 - 5.20 x10E12/L 02/03/2024 1:27 AM CDT [facility] Hemoglobin 15.3 11.9 - 15.8 g/dL 02/03/2024 1:27 AM CDT [facility] Hematocrit 42.7 34.8 - 46.1 % 02/03/2024 1:27 AM CDT [facility] MCV 84.9 80.0 - 98.0 fL 02/03/2024 1:27 AM [facility] MCH 30.4 26.7 - 33.6 pg 02/03/2024 1:27 AM [facility] MCHC 35.8 31.7 - 36.3 g/dL 02/03/2024 1:27 AM [facility] RDW-CV 11.7 11.3 - 14.8 % 02/03/2024 1:27 AM [facility] Platelet Count 273 150 - 420 x10E9/L 02/03/2024 1:27 AM [facility] MPV 9.4 7.8 - 11.4 fL 02/03/2024 1:27 AM [facility] Neutrophil % 61.8 41.0 - 74.0 % 02/03/2024 1:27 AM [facility] Lymphocyte % 28.0 17.0 - 47.0 % 02/03/2024 1:27 AM [facility] Monocyte % 7.7 3.0 - 11.0 % 02/03/2024 1:27 AM [facility] Eosinophil % 2.0 0.0 - 7.0 % 02/03/2024 1:27 AM [facility] Basophil % 0.4 0.0 - 1.6 % 02/03/2024 1:27 AM [facility] Immature Granulocytes % 0.1 0.0 - 1.0 % 02/03/2024 1:27 AM [facility] Neutrophil Absolute 4.84 1.60 - 7.50 x10E9/L 02/03/2024 1:27 AM [facility] Lymphocyte Absolute 2.19 1.00 - 4.40 x10E9/L 02/03/2024 1:27 AM [facility] Monocyte Absolute 0.60 0.15 - 1.00 x10E9/L 02/03/2024 1:27 AM [facility] Eosinophil Absolute 0.16 0.00 - 0.60 x10E9/L 02/03/2024 1:27 AM [facility] Basophil Absolute 0.03 0.00 - 0.13 x10E9/L 02/03/2024 1:27 AM [facility] Blood BLOOD SPECIMEN / Unknown Venipuncture / Unknown 02/03/2024 1:03 AM CDT 02/03/2024 1:17 AM CDT Kaylee Reyes MD LAB - HEMATOLOGY ORD ERABLES [facility] [address] [place] [address], [facility] [phone] * (ABNORMAL) COMPREHENSIVE METABOLIC PANEL (02/03/2024 1:03 AM CDT) Only the most recent of2 resultswithin the time period is included. BUN 9 7 - 26 mg/dL 02/03/2024 1:45 AM [facility] Creatinine 0.64 0.56 - 0.96 mg/dL 02/03/2024 1:45 AM [facility] Sodium 139 136 - 145 mmol/L 02/03/2024 1:45 AM [facility] Potassium 3.4(L) 3.5 - 4.5 mmol/L 02/03/2024 1:45 AM [facility] Chloride 107 98 - 107 mmol/L 02/03/2024 1:45 AM [facility] CO2 21(L) 22 - 29 mmol/L 02/03/2024 1:45 AM [facility] Glucose 78 70 - 115 mg/dL 02/03/2024 1:45 AM [facility] Calcium 9.9 8.4 - 10.2 mg/dL 02/03/2024 1:45 AM [facility] Protein Total 7.7 6.0 - 8.3 [...] 02/03/2024 1:03 AM CDT 02/03/2024 1:17 AM [facility] Kaylee [facility]yes MD [facility] Organization Address City/State/ZIP Co de Phone Number [facility] [address] [place] [address], [facility] [phone] * (ABNORMAL) URINALYSIS W/MICROSCOPIC NO CULTURE (02/03/2024 12:57 AM T) Color UA Yellow Straw, Yellow 02/03/2024 1:40 AM [facility] Clarity UA t Cloudy(A) Clear 02/03/2024 1:40 AM [facility] Specific [place] UA 1.020 1.005 - 1.030 02/03/2024 1:40 AM [facility] pH UA 5.0 5.0 - 8.0 pH 02/03/2024 1:40 AM [facility] Protein UA Negative Negative 02/03/2024 1:40 AM [facility] Glucose UA Negative Negative 02/03/2024 1:40 AM [facility] Ketone UA Negative Negative 02/03/2024 1:40 AM [facility] Bilirubin UA Negative Negative 02/03/2024 1:40 AM CDT [facility] Blood UA Negative Negative 02/03/2024 1:40 AM CDT [facility] Nitrite UA Negative Negative 02/03/2024 1:40 AM CDT [facility] Leukocyte Esterase Negative Negative 02/03/2024 1:40 AM CDT [facility] Urobilinogen UA Negative Negative mg/dL 02/03/2024 1:40 AM CDT [facility] RBC UA 6-10(A) None Seen, 0-2, 3-5 /HPF 02/03/2024 1:40 AM CDT [facility] WBC UA 0-5 None Seen, 0-5 /HPF 02/03/2024 1:40 AM T [facility] Squamous Epithelial Cells UA 6-10(A) None Seen, 0-2, 3-5 /HPF 02/03/2024 1:40 AM CDT [facility] Mucus UA 2+ /LPF 02/03/2024 1:40 AM CDT [facility] Urine URINE SPECIMEN OBTAINED BY CLEAN CATCH PROCEDURE / Unknown Collection / Unknown 02/03/2024 12:57 AM CDT 02/03/2024 1:13 AM CDT Narrative [facility] - 02/03/2024 1:40 AM CDT Kaylee Reyes MD LAB - URINALYSIS ORD ERABLES [facility] [address] [place] [address], [facility] [phone] * CT RENAL STONE (02/03/2024 12:19 AM [...] > Dictated by Samy Johnson MD, PhD (echocardiography radiology technologist). I, Haylee Lopez MD have personally reviewed and interpreted this examination/study. > Interpreting Provider: Haylee Lopez MD on 02/03/2024 10:15 AM Narrative 02/03/2024 10:15 AM CDT PROCEDURE: CT RENAL STONE, DATE/TIME OF EXAM: 02/03/2024 12:19 AM, LOCATION [facility] INDICATION: R10.9: Flank pain ADDITIONAL CLINICAL [...] DATE/TIME OF EXAM: 02/03/2024 12:19 AM, LOCATION [facility] INDICATION: R10.9: Flank pain ADDITIONAL CLINICAL [...] > Dictated by Samy Johnson MD, PhD (echocardiography radiology technologist). I, Haylee Lopez MD have personally reviewed [...] DERABLES [facility] [address] [place] [address] * CT ABDOMEN AND PELVIS WITH IV [...] on 06/04/2019 at 1:11 PM Luna Durant FOOD SAMPLER-COMMUNITY LIVING INSTRUCTOR CT ORDERABLES * URINALYSIS REFLEX MICROSCOPIC REFLEX CULTURE (06/04/2019 12:07 PM CDT) Color UA Straw Straw, Yellow 06/04/2019 12:14 PM CDT [facility] Clarity UA Clear Clear 06/04/2019 12:14 PM CDT [facility] Glucose UA Negative Negative 06/04/2019 12:14 PM [facility] Bilirubin UA Negative Negative 06/04/2019 12:14 PM [facility] Ketone UA Negative Negative 06/04/2019 12:14 PM [facility] Specific [place] UA 1.006 1.005 - 1.030 06/04/2019 12:14 PM CDT [facility] Blood UA Negative Negative 06/04/2019 12:14 PM [facility] pH UA 7.0 5.0 - 8.0 pH 06/04/2019 12:14 PM [facility] Protein UA Negative Negative 06/04/2019 12:14 PM CDT [facility] Urobilinogen UA Negative Negative mg/dL 06/04/2019 12:14 PM CDT [facility] Nitrite UA Negative Negative 06/04/2019 12:14 PM CDT [facility] Leukocyte UA Negative Negative 06/04/2019 12:14 PM [facility] Urine Microscopy Urine microscopy not indicated 06/04/2019 12:14 PM [facility] Reflex Status Culture not indicated 06/04/2019 12:14 PM CDT [facility] Urine URINE SPECIMEN OBTAINED BY CLEAN CATCH PROCEDURE / Unknown Collection / Unknown 06/04/2019 12:07 PM CDT 06/04/2019 12:09 PM CDT Narrative [facility] - 06/04/2019 12:14 PM CDT Tarun Garcia MD LAB - URINALYSIS OR DERABLES Performing Organization Address City/[facility]/ZIP Co de Phone Number [facility] [address] [place] [address] * HCG URINE QUALITATIVE - POCT (IP) INTERFACED (06/04/2019 12:06 PM CDT) HCG Qual Urine Negative Negative 06/04/2019 12:12 PM CDT [facility] Urine URINE / Unknown 06/04/2019 1 2:06 PM CDT 06/04/2019 12:12 PM CDT Provider Unknown LAB - POINT OF CARE ORDERABLES Performing Organization Address City/[facility]/ZIP Co de Phone Number [facility] [address] [place] [address] * LIPASE BLOOD (06/04/2019 11:56 AM CDT) Lipase 29 8 - 78 U/L 06/04/2019 12:59 PM CDT [facility] Blood BLOOD SPECIMEN / Unknown Venipuncture / Unknown 06/04/2019 11:56 AM CDT 06/04/2019 12:06 PM CDT Luna Durant FOOD SAMPLER-COMMUNITY LIVING INSTRUCTOR LAB - CHEMISTRY O RDERABLES [facility] [address] [place] [address] * RPR (08/27/2016 3:46 PM HOUSE DETECTIVE) RPR Non Reactive Non Reactive [facility] ACCOUNT BILL Blood BLOOD SPECIMEN / Unknown 08/27/2016 3:46 PM HOUSE DETECTIVE 08/27/2016 Narrative Resulting Agency Comment [facility] [address] [address] [phone] Albert Hutchinson MD LAB - CHEMISTRY TOBY BILLY Performing Organization Address City/[facility]/ZIP Co de Phone Number [facility] ACCOUNT BILL [address] [place] [address] * VITAMIN B6 (08/27/2016 3:46 PM HOUSE DETECTIVE) Vitamin B6 14.9 2.0 - 32.8 ug/L [facility] ACCOUNT BILL Blood BLOOD SPECIMEN / Unknown 08/27/2016 3:46 PM HOUSE DETECTIVE 08/27/2016 Narrative Resulting Agency Comment [facility] [address] [phone] Albert Hutchinson MD LAB - CHEMISTRY TOBY BILLY Performing Organization Address [facility] Co de Phone Number [facility] ACCOUNT BILL [address] [place] [address] * VITAMIN B12 FOLATE PANEL (08/27/2016 3:46 PM HOUSE DETECTIVE) Vitamin B12 879 211 - 911 pg/mL [facility] ACCOUNT BILL Folate 13.6 3.1 - 17.5 ng/mL [facility] ACCOUNT BILL Blood BLOOD SPECIMEN / Unknown 08/27/2016 3:46 PM HOUSE DETECTIVE 08/27/2016 Narrative Resulting Agency Comment [facility] [address] [address]OULD [phone] Albert Hutchinson MD LAB - CHEMISTRY TOBY BILLY Performing Organization Address City/[facility] Co de Phone Number [facility] ACCOUNT BILL [address] [place] [address] * (ABNORMAL) TSH (08/27/2016 3:46 PM HOUSE DETECTIVE) TSH 0.280(L) 0.358 - 3.740 uIU/mL [facility] ACCOUNT BILL Blood BLOOD SPECIMEN / Unknown 08/27/2016 3:46 PM HOUSE DETECTIVE 08/27/2016 Narrative Resulting Agency Comment [facility] [address] [address]OULD [id number] Albert Hutchinson MD LAB - CHEMISTRY DARIARei WENCESLAO [facility] ACCOUNT [place]ILL [place] [address] * IMAGING/RADIOLOGY/XRAY RESULTS ORDER (10/20/2009 6:02 AM HOUSE DETECTIVE) Anatomical Region Laterality Modality Other Narrative 10/20/2009 6:02 AM HOUSE DETECTIVE Ordered by an unspecified provider. Transcriptions Document, Scanned - 09/20/2009 12:00 AM HOUSE DETECTIVE Scanned Document IMAGING * CHROMOSOME ANALYSIS AMNIO PANEL (08/31/2009 12:00 PM HOUSE DETECTIVE) Chromosome Analysis Amniotic Fluid See Scanned Report [facility] Comment Amniotic Fluid [facility] AMNIOTIC FLUID SPECIMEN / Unknown 08/31/2009 12:00 PM HOUSE DETECTIVE 08/31/2009 12:40 PM HOUSE DETECTIVE Arvin Anderson MD LAB - PATHOLOGY/CYTO LOGY ORDERABLES [facility] [address] [place] [address] Care Teams Wheelchair Rental Clerk Relationship Specialty Start Date End Date Damian Sadler MD PCP - General Internal Medicine 07/04/16
--- OUTSIDE RECORDS SUMMARY | 2024-10-21 00:34 | XMS_ITS | Referral Summary ---
Author Organization [facility] al Address [address] [place] [address] Care Team Providers Care Cubing Machine Tender Name Role Phone Lucas Carter DO Primary Care Provider [phone]- [phone] Allergies Active Allergy Reactions Criticality Noted Date Comments Hydralazine Headache,Vomiting Low 01/21/2024 Ketorolac Hives,Itching Medium 10/17/2017 Tramadol Hives,Urticaria Medium 08/27/2016 Medications omeprazole (PriLOSEC) 20 mg capsuleIndications :Treatment of Non-Bleeding Gastric Disorder Take 1 capsule (20 mg total) by mouth reception manager 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 Active MULTIVIT-MINERALS/ FERROUS FUM (MULTI VITAMIN ORAL)Indications:h ealth Take 1 tablet by mouth reception manager 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 Active ondansetron ODT (ZOFRAN-ODT) 4 [...] 1 tablet (25 mg total) by mouth reception manager 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 Active nebivoloL (BYSTOLIC) 10 mg [...] on file Legal Sex Female 9:06 PM GLASS CRUSHER Gender Identity Female 10/01/2023 8:44 AM GLASS CRUSHER Sexual Orientation Straight 10/01/2023 8: 44 AM GLASS CRUSHER Last Filed Vital Signs Vital Sign Reading Time Taken Comments Blood Pressure 125/82 06/29/2024 10:05 AM GLASS CRUSHER Pulse 75 06/29/2024 10:05 AM GLASS CRUSHER Temperature 36.2 C (97.2 F) 06/29/2024 9:28 AM GLASS CRUSHER Respiratory Rate 15 06/29/2024 10:0 5 AM GLASS CRUSHER Oxygen Saturation 96% 06/29/2024 10: 05 AM GLASS CRUSHER Inhaled Oxygen Concentration - - Weight 83.4 kg (183 lb 12.8 oz) 06/29/2024 7:50 AM GLASS CRUSHER Height 160 cm (5' 3 ) 06/29/2024 7:50 AM GLASS CRUSHER Body Mass Index 32.56 06/29/2024 7:50 AM GLASS CRUSHER Plan of Treatment Not on file Goals [...] home safety. Medical Devices Implanted Type Area Medical Record Librarian Device Identifier Shelf Expiration Date Model / Serial / Lot Screw Left: Elbow Insurance IDPA [facility] CHOICE PLUS [facility] Advance Directives For more information, please contact: [phone] * Full Code (Latest Code Status on File) Date Activated Date Inactivated Comments 08/15/2022 3:10 PM 08/18/2022 6:09 PM Care Teams Cubing Machine Tender Relationship Specialty Start Date End Date Lucas Carter DO PCP - General Internal Medicine 08/15/22
--- OUTSIDE RECORDS SUMMARY | 2024-10-21 00:34 | XMS_ITS | Clinical Summary ---
Author Organization [facility] al Address [address] [place] [address] Care Team Providers Care Washroom Operator Name Role Phone Lucas Carter DO Primary Care Provider [phone]- [phone] Allergies Active Allergy Reactions Criticality Noted Date Comments Hydralazine Headache,Vomiting Low 01/21/2024 Ketorolac Hives,Itching Medium 10/17/2017 Tramadol Hives,Urticaria Medium 08/27/2016 Medications omeprazole (PriLOSEC) 20 mg capsuleIndications :Treatment of Non-Bleeding Gastric Disorder Take 1 capsule (20 mg total) by mouth flame cutter 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 Active MULTIVIT-MINERALS/ FERROUS FUM (MULTI VITAMIN ORAL)Indications:h ealth Take 1 tablet by mouth flame cutter 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 Active ondansetron ODT (ZOFRAN-ODT) 4 [...] 1 tablet (25 mg total) by mouth flame cutter 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 Active nebivoloL (BYSTOLIC) 10 mg [...] Grandfather Beka Sr. Hearing loss Maternal Grandmother [place] Alcohol abuse Mother Lisae Arthritis Mother Melodye COPD Mother Melodye Depression Mother Melodye Hearing loss Mother Melodye Obesity Mother Melelizabethe Stroke Paternal Grandfather Dusty Obesity Sister Sarai Relation Name Status Comments Brother Dusty Father Israel Maternal Grandfather Beka Sr. Maternal Grandmother [place] Mother Gretchen Paternal Grandfather Dusty Sister Sarai [...] on file Legal Sex Female 9:06 PM SNAKER DRIVING HORSES Gender Identity Female 10/01/2023 8:44 AM SNAKER DRIVING HORSES Sexual Orientation Straight 10/01/2023 8: 44 AM SNAKER DRIVING HORSES Obstetrics History Para Term AB IAB SAB [...] Comments Blood Pressure 125/82 06/29/2024 10:05 AM SNAKER DRIVING HORSES Pulse 75 06/29/2024 10:05 AM SNAKER DRIVING HORSES Temperature 36.2 C (97.2 F) 06/29/2024 9:28 AM SNAKER DRIVING HORSES Respiratory Rate 15 06/29/2024 10:0 5 AM SNAKER DRIVING HORSES Oxygen Saturation 96% 06/29/2024 10: 05 AM SNAKER DRIVING HORSES Inhaled Oxygen Concentration - - Weight 83.4 kg (183 lb 12.8 oz) 06/29/2024 7:50 AM SNAKER DRIVING HORSES Height 160 cm (5' 3 ) 06/29/2024 7:50 AM SNAKER DRIVING HORSES Body Mass Index 32.56 06/29/2024 7:50 AM SNAKER DRIVING HORSES Plan of Treatment Health Maintenance Due Date [...] on stairs Contact your local community or [facility] for information on exercise, fall prevention programs, or options for improving home safety. Medical Devices Implanted Type Area Cane Furniture Maker Device Identifier Shelf Expiration Date Model / Serial / Lot Screw Left: Elbow Insurance IDPA [facility] CHOICE PLUS [facility] Advance Directives For more information, please contact: [phone] * Full Code (Latest Code Status on File) Date Activated Date Inactivated Comments 08/15/2022 3:10 PM 08/18/2022 6:09 PM Care Teams Washroom Operator Relationship Specialty Start Date End Date Lucas Carter DO PCP - General Internal Medicine 08/15/22
[2024-10-21] MEDS: HYDROmorphone HCL INJ (*CRX) 1 MG/ML SYR 0.5 MG IV PUSH ×6 (00:37→14:54)
[2024-10-21] MEDS: SODIUM CHLORIDE 0.9% IV 1,000 ML 999 ML IV CONT (01:58)
[2024-10-21] MEDS: SODIUM CHLORIDE 0.9% IV 1,000 ML 100 ML IV CONT ×2 (03:24→06:32)
[2024-10-21] MEDS: LABETALOL HCL INJ 100 MG/20 ML VIAL 20 MG IV PUSH ×2 (04:01→16:48)
--- NOTE | 2024-10-21 04:33 | ADMGEN ---
This patient, Renee Luke, was admitted to [facility] Surg Room 311-01. Patient/family oriented to hospital policies and general routines including ID bracelet, bed and alarms, visiting hours, pain management, procedures, bathroom and other care routines, personal items, smoking policy, room service/diet, and visiting hours. Information on how to activate the Rapid Response Team has been discussed. Patient/Family are encouraged to report perceived risks to care and to ask questions if they do not understand what they are told or what they should do.
--- NOTE | 2024-10-21 06:12 | P.HP_ITS ---
H&P: HPI History of Present Illness Date/Time: 10/21/24 06:12 Chief Complaint: Right flank pain, nausea Narrative: This is a 44-year-old female with a significant past medical history of kidney stones, hypertension, GERD, obesity, depression, tobacco abuse who presented to the hospital with right flank pain and nausea. Patient is followed by Dr. Gonzalez for stones on an outpatient basis. She recently was in the ER on 10/17/2024 with right flank pain and was found to have a 4 mm ureteral stone. At that time she was on Flomax however her pain persisted and she had associated nausea. She was discharged from the emergency room as she wanted to follow-up with her urologist on an outpatient basis and she was discharged with pain medication and tamsulosin. She presented again today with right flank pain and nausea. Workup in the hospital included an abdomen pelvis CT which showed 3 mm proximal right ureteral stone without hydronephrosis, additional small bilateral nonobstructing renal stones. Abdominal x-ray did not reveal a definite stone. Initial labs showed a normal white blood cell count of 6.8, bicarb 21, creatinine 0.63, ALT 39. UA was obtained and showed a 1 point 036 urine specific gravity, trace urine ketone, 1+ urine blood, 11-20 urine RBC, 6-10 urine WBC, rare bacteria. Urine test was negative. Urine culture was obtained and pending. EKG showed sinus rhythm with a rate of 72, QTC 435. Patient was given 2 L of normal saline, Zofran, morphine, dilaudid, labetalol and started on maintenance IV fluids at 100 mL/hour while in the ED. Urology was consulted. Review of Systems Review of Systems: All systems reviewed & are unremarkable except as noted in HPI and below PMFSH Past Medical History Medical History Hypertension Gastroesophageal reflux disease Sleep paralysis, recurrent isolated Smoker Obesity Depression Multiple kidney stones Seasonal allergies Surgical History Surgical History History of laparoscopic cholecystectomy on 04/25/23 PDC History of tubal ligation History of endometrial ablation (2009) History of hysterectomy (2015) History of open reduction and internal fixation (ORIF) procedure (2012) Left elbow. History of section 2000, 2001, 2009 Status post cystoscopy with ureteral stent placement Family History Family History Mother Diabetes mellitus Depression Alcoholism Father Hypertension Sibling Congenital heart disease Son Asthma Grandparent Diabetes mellitus Cerebrovascular accident Social History Social History Social History: Surrogate medical decision maker: Bang Luke, spouse. Code status: Full code. Smoking packs per day: 0.5 Smoking cigarettes per day: 10.0 Years smoked: 32 Smoking pack-years: 16.00 Smoking status: Current every day smoker Tobacco type: cigarettes Alcohol intake: never Alcohol use details: Social alcohol use in moderation. Substance use: never Substance use type: does not use Do You Feel Safe in your Home?: Yes Lack of Transportation: No Lack of Food: Never True Current Housing: I Have Housing Concerned About Future Housing: No Difficulty Paying Gas/Electric Bills: No Difficulty Paying for Meds: No Currently Unemployed: No Education: High School Diploma/GED Difficulty w/ Childcare or Family Care: No Living arrangements: with family Spiritual care concerns: No Meds Home Medications and Allergies Home Medications ?Medication ?Instructions ?Recorded ?Confirmed ?Type multivitamin 1 tablet PO DAILY 04/04/22 10/21/24 History pregabalin 150 mg capsule 150 mg PO Q8H PRN pain 02/21/24 10/21/24 History losartan 50 mg tablet 50 mg PO BID #180 tabs 03/30/24 10/21/24 Rx cephalexin 500 mg capsule 500 mg PO Q12H #10 caps 08/23/24 10/21/24 Rx ondansetron 4 mg disintegrating 4 mg PO Q8H #14 tabs 10/12/24 10/21/24 Rx tablet hydrocodone 5 mg-acetaminophen 325 1 tablet PO Q8H PRN pain #15 tabs 10/18/24 10/21/24 Rx mg tablet tamsulosin 0.4 mg capsule 0.4 mg PO DAILY #14 caps 10/18/24 10/21/24 Rx hydrochlorothiazide 25 mg tablet 25 mg PO DAILY 10/21/24 10/21/24 History nebivolol 10 mg tablet (Bystolic) 10 mg PO DAILY 03/12/25 03/12/25 History Allergies Allergy/AdvReac Type Severity Reaction Status Date / Time ketorolac (From Toradol) Allergy Headache,Rash, Verified 10/20/24 22:39 Swollen tongue tramadol AdvReac Mild VOMITING/HE Verified 10/20/24 22:39 ADACHE hydralazine AdvReac Headache Verified 10/20/24 22:39 Vital Signs Vital Signs - 24 hr 10/20/24 22:34 10/21/24 01:21 10/21/24 03:10 Temperature 97.5 F L 98.1 F 97.9 F Pulse Rate 84 78 71 Respiratory Rate 18 19 16 Blood Pressure 223/132 H 185/117 H 195/106 H Pulse Oximetry 98 94 95 Oxygen Delivery Room Air 10/21/24 04:16 Temperature Pulse Rate 72 Respiratory Rate 16 Blood Pressure 169/104 H Pulse Oximetry 95 Oxygen Delivery Exam Narrative: General: In no acute distress, well nourished Head: atraumatic, no encephalopathy Eyes: PERRLA, sclera clear ENT: moist mucous membranes, nasal passages clear Neck: supple, no JVD, no adenopathy, trachea midline Cardiac: Normal S1 and S2. No murmur, gallops or friction rubs, peripheral pulses intact. Respiratory: Lungs clear to auscultation, no adventitious lung sounds, currently on room air Gastrointestinal: soft, non-distended, non-tender, normoactive bowel sounds. : Reporting right flank pain 9/10, urinating Extremities: moves all extremities well, no edema Skin: clean, dry, intact. No wounds or lesions. Neuro: Alert and oriented x4, cranial nerves intact, no neuro deficits. Psych: normal mood, normal affect, interactive H&P: Results Labs Labs: Short CBC 10/20/24 Range/Units 23:35 WBC 6.8 (4.5-10.0) K/mm3 Hgb 14.6 (12.0-15.0) g/dL Hct 41.4 (37.0-47.0) % Plt Count 224 (150-375) k/mm3 BMP 10/20/24 23:35 Sodium 140 Potassium 3.8 Chloride 107 Carbon Dioxide 21 L BUN 16 Creatinine 0.63 L Glucose 101 Calcium 9.5 Liver Function 10/20/24 Range/Units 23:35 Total Bilirubin 0.3 (0.2-1.3) mg/dL AST 33 (14-36) U/L ALT 39 H (6-35) U/L Alkaline Phosphatase 82 (38-126) U/L Albumin 4.4 (3.5-5.1) g/dL Urine 10/20/24 Range/Units 23:35 Urine Color Yellow (Yellow) Urine Appearance Clear (Clear) Urine pH 5.5 (5.0-9.0) Ur Specific [place] 1.036 H (1.001-1.035) Urine Protein Trace (Negative) mg/dL Urine Glucose (UA) Negative (Negative) mg/dL Imaging Abdomen/pelvis CT: Radiologist's impression: Non-contrast CT scan of the Abdomen and Pelvis Clinical indication: Right flank pain Technique: 2.5 mm axial scans were obtained through the abdomen and pelvis without intravenous or oral contrast. Dose reduction technique was used on this scan by utilizing automated exposure control and iterative reconstruction technique. The dose-length product (DLP) was 693.44 mGy-cm. COMPARISON: 10/17/2024 Findings: Images through the lung bases reveal no abnormalities. Small bilateral nonobstructing renal stones are present, largest measuring 3 mm in the left kidney. There is a 3 mm stone in the proximal right ureter (axial image 78). No distinct hydronephrosis. The liver, spleen, pancreas, and adrenals appear normal. Cholecystectomy clips are present. There is no aortic aneurysm. There is no evidence of bowel obstruction. Images through the pelvis were performed. There is no evidence of ascites or lymphadenopathy. Urinary bladder unremarkable. Status post hysterectomy. Impression: 3 mm proximal right ureteral stone, without hydronephrosis. Additional small bilateral nonobstructing renal stones, as above. Reviewed, dictated and finalized at [facility]. Assessment and Plan Assessment and plan (1) Calculus of distal right ureter: Code(s): N20.1 - Calculus of ureter Status: Acute Assessment and Plan: * Abdomen/pelvis CT shown 3 mm proximal right ureteral stone without hydronephrosis, additional small bilateral nonobstructing renal stones * Continue pain control * Continue nausea control * Continue tamsulosin * Urology consulted * Keep NPO for cystoscopy today at 1530 (2) Acute abdominal pain in right flank: Code(s): R10.9 - Unspecified abdominal pain Status: Acute Assessment and Plan: * Related to the above * Continue pain control (3) HTN (hypertension): Qualifiers: Hypertension type: primary hypertension Qualified Code(s): I10 - Essential (primary) hypertension Code(s): I10 - Essential (primary) hypertension Status: Acute Assessment and Plan: * Blood pressures ranging 169/104 to 223/132 * Patient was given 20 mg IV push labetalol while in the ED * Continue losartan 50 mg b.i.d. * Continue hydrochlorothiazide 25 mg daily * Continue Bystolic 10 mg daily (4) Gastroesophageal reflux disease: Qualifiers: Esophagitis presence: esophagitis presence not specified Qualified Code(s): K21.9 - Gastro-esophageal reflux disease without esophagitis Code(s): K21.9 - Gastro-esophageal reflux disease without esophagitis Status: Acute Assessment and Plan: * Protonix ordered (5) Tobacco abuse: Code(s): Z72.0 - Tobacco use Status: Acute Assessment and Plan: * Half pack smoker times 32 years * Encourage smoking cessation Quality VTE Prophylaxis VTE prophylaxis: mechanical ordered Hospitalist MIPS Advance Care Plan I have confirmed that the patient's Advanced Care Plan is present, code status is documented, or surrogate decision maker is listed in patient medical record.: Yes Medication Reconciliation I have utilized all available resources to obtain, update and review the patients current medications (includes all prescriptions, OTC, herbals, cannabis, and nutritional supplements).: Yes
[2024-10-21] MEDS: MORPHINE SULFATE (*CRX) 2 MG/ML INJ IV PUSH (06:32)
--- NOTE | 2024-10-21 06:55 | P.CONUR_ITS ---
Assessment and Plan Assessment and plan (1) Left nephrolithiasis: Code(s): N20.0 - Calculus of kidney Status: Inactive (2) Right ureteral stone: Code(s): N20.1 - Calculus of ureter Status: Inactive Assessment and Plan: * Cystoscopy, right ureteroscopy with stone extraction, possible laser lithotripsy, retrograde pyelography and stent placement Urology Consult Note HPI Date Seen: 10/21/24 Requesting Physician: Pamela Tao MD Primary Care Provider: Lucas Carter, Consult Narrative Narrative: Renee Luke is a 44 year old female with history of recurrent urolithiasis. She has been in the emergency department 3 times in the last several days with the obstructing painful small right proximal ureteral stone which is not progressed. This been associated with nausea but no fevers chills or gross hematuria. Review of Systems 2 Review of Systems: All systems reviewed & are unremarkable except as noted in HPI and below PMFSH Past Medical History Medical History Hypertension Gastroesophageal reflux disease Sleep paralysis, recurrent isolated Smoker Obesity Depression Multiple kidney stones Seasonal allergies Surgical History Surgical History History of laparoscopic cholecystectomy on 04/25/23 PDC History of tubal ligation History of endometrial ablation (2009) History of hysterectomy (2015) History of open reduction and internal fixation (ORIF) procedure (2012) Left elbow. History of section 2000, 2001, 2009 Status post cystoscopy with ureteral stent placement Family History Family History Mother Diabetes mellitus Depression Alcoholism Father Hypertension Sibling Congenital heart disease Son Asthma Grandparent Diabetes mellitus Cerebrovascular accident Social History Social History Social History: Surrogate medical decision maker: Bang Luke, spouse. Code status: Full code. Smoking packs per day: 0.5 Smoking cigarettes per day: 10.0 Years smoked: 32 Smoking pack-years: 16.00 Smoking status: Current every day smoker Tobacco type: cigarettes Alcohol intake: never Alcohol use details: Social alcohol use in moderation. Substance use: never Substance use type: does not use Do You Feel Safe in your Home?: Yes Lack of Transportation: No Lack of Food: Never True Current Housing: I Have Housing Concerned About Future Housing: No Difficulty Paying Gas/Electric Bills: No Difficulty Paying for Meds: No Currently Unemployed: No Education: High School Diploma/GED Difficulty w/ Childcare or Family Care: No Living arrangements: with family Spiritual care concerns: No Meds Home Medications and Allergies Home Medications ?Medication ?Instructions ?Recorded ?Confirmed ?Type multivitamin 1 tablet PO DAILY 04/04/22 10/21/24 History pregabalin 150 mg capsule 150 mg PO Q8H PRN pain 02/21/24 10/21/24 History losartan 50 mg tablet 50 mg PO BID #180 tabs 03/30/24 10/21/24 Rx cephalexin 500 mg capsule 500 mg PO Q12H #10 caps 08/23/24 10/21/24 Rx ondansetron 4 mg disintegrating 4 mg PO Q8H #14 tabs 10/12/24 10/21/24 Rx tablet hydrocodone 5 mg-acetaminophen 325 1 tablet PO Q8H PRN pain #15 tabs 10/18/24 10/21/24 Rx mg tablet tamsulosin 0.4 mg capsule 0.4 mg PO DAILY #14 caps 10/18/24 10/21/24 Rx hydrochlorothiazide 25 mg tablet 25 mg PO DAILY 10/21/24 10/21/24 History nebivolol 10 mg tablet (Bystolic) 10 mg PO DAILY 10/21/24 10/21/24 History Allergies Allergy/AdvReac Type Severity Reaction Status Date / Time ketorolac (From Toradol) Allergy Headache,Rash, Verified 10/20/24 22:39 Swollen tongue tramadol AdvReac Mild VOMITING/HE Verified 10/20/24 22:39 ADACHE hydralazine AdvReac Headache Verified 10/20/24 22:39 Vital Signs Vital Signs - 24 hr 10/20/24 22:34 10/21/24 01:21 10/21/24 03:10 Temperature 97.5 F L 98.1 F 97.9 F Pulse Rate 84 78 71 Respiratory Rate 18 19 16 Blood Pressure 223/132 H 185/117 H 195/106 H Pulse Oximetry 98 94 95 Oxygen Delivery Room Air 10/21/24 04:16 10/21/24 04:30 Temperature 97.6 F Pulse Rate 72 68 Respiratory Rate 16 20 Blood Pressure 169/104 H 180/100 H Pulse Oximetry 95 96 Oxygen Delivery Exam 2 Const: General: no acute distress Resp: Effort & Inspection: normal respiratory effort GI: Inspection: non-distended GI Palp: No abdominal tenderness and No Guarding due to palpation present (GI) Auscultation: normal bowel sounds Results Labs 10/20/24 23:35 10/20/24 23:35 Labs: Short CBC 10/20/24 Range/Units 23:35 WBC 6.8 (4.5-10.0) K/mm3 Hgb 14.6 (12.0-15.0) g/dL Hct 41.4 (37.0-47.0) % Plt Count 224 (150-375) k/mm3 BMP 10/20/24 23:35 Sodium 140 Potassium 3.8 Chloride 107 Carbon Dioxide 21 L BUN 16 Creatinine 0.63 L Glucose 101 Calcium 9.5 Liver Function 10/20/24 Range/Units 23:35 Total Bilirubin 0.3 (0.2-1.3) mg/dL AST 33 (14-36) U/L ALT 39 H (6-35) U/L Alkaline Phosphatase 82 (38-126) U/L Albumin 4.4 (3.5-5.1) g/dL Urine 10/20/24 Range/Units 23:35 Urine Color Yellow (Yellow) Urine Appearance Clear (Clear) Urine pH 5.5 (5.0-9.0) Ur Specific [place] 1.036 H (1.001-1.035) Urine Protein Trace (Negative) mg/dL Urine Glucose (UA) Negative (Negative) mg/dL
--- NOTE | 2024-10-21 06:59 | WPDHPUPDATE1 ---
History and Physical Update Update Date/Time: 10/21/24 06:59 History and Physical has been reviewed, including an updated exam of the patient. There are NO changes in the patient's condition. Risks, benefits, and alternatives have been discussed and questions answered. Patient agrees to proceed with procedure.
[2024-10-21 07:01] LABS: Basophils Percent Auto 0.6 % (0.2-1.2); Eosinophils Absolute Auto 0.2 K/mm3 (0-0.3); Eosinophils Percent Auto 2.8 % (0-4.4); Hemoglobin 12.7 g/dL (12.0-15.0); Immature Granulocyte Absolute 0.01 K/mm3 (0.00-0.031); Immature Granulocyte Percent A 0.2 % (0-0.5); Lymphocytes Absolute Auto 2.28 K/mm3 (0.9-3.2); Lymphocytes Percent Auto 42.1 % (18.3-44.2); Mean Corpuscular HGB Conc 33.4 g/dl (32-36); Mean Corpuscular Hemoglobin 30.7 pg (26-34); Mean Corpuscular Volume 91.8 fl (80-100); Mean Platelet Volume 9.7 fl (7.4-10.4); Monocytes Absolute Auto 0.6 K/mm3 (0.1-0.6); Monocytes Percent Auto 10.2 % (2.6-8.5); Neutrophils Absolute Auto 2.4 K/mm3 (1.3-6.7); Neutrophils Percent Auto 44.1 % (45.5-73.1); Platelet Count Result 204 k/mm3 (150-375); Red Blood Count 4.14 M/mm3 (4.2-5.4); White Blood Count 5.4 K/mm3 (4.5-10.0)
[2024-10-21 07:08] LABS: Magnesium 1.7 mg/dL (1.6-2.3)
[2024-10-21 07:10] LABS: Alanine Aminotransferase 34 U/L (6-35); Albumin Level 3.8 g/dL (3.5-5.1); Alkaline Phosphatase 75 U/L (38-126); Anion Gap 9 mmol/L (4-12); Aspartate Amino Transferase 30 U/L (14-36); Bilirubin,Total 0.2 mg/dL (0.2-1.3); Blood Urea Nitrogen 15 mg/dL (7-17); Calcium 8.5 mg/dL (8.4-10.2); Carbon Dioxide 24 mmol/L (22-30); Chloride 107 mmol/L (98-107); Estimated CRCL calculation 105 ml/min; Estimated Glomerular Filt Rate > 60; Glucose 85 mg/dL (65-110); Potassium 3.9 mmol/L (3.4-5.0); Sodium 140 mmol/L (137-145)
[2024-10-21] MEDS: HYDROcodone/acetaminophen (*CRX) 5-325 MG TABLET 1 TAB PO ×2 (07:31→16:23)
[2024-10-21] MEDS: NEBIVOLOL HCL 5 MG TABLET 10 MG PO (07:39)
--- OUTSIDE RECORDS SUMMARY | 2024-10-21 09:21 | XMS_ITS | Referral Summary ---
Author Organization [facility] [employer] Address [address] [place] [address] Care Team Providers Care Associate Agent Insurance Sales Name Role Phone Damian Sadler MD Primary Care Provider [phone] Source Comments [facility] [employer],non-owned Affiliates and Associated Physician Practices is amultiple site organization consisting of ambulatory clinics and hospital sitesin [place], [place], [place] and [place]. This disclosure is being madepursuant to the Care Everywhere program and may not contain all information available regarding this patient. Last updated 18.[facility] [employer] Allergies Active Allergy Reactions Criticality Noted Date [...] Resulting Agency Comment Lab Testing performed at: [facility] [address] [phone] Nancy Cotto MD LAB - CHEMISTRY TOBY BILLY [facility] INSURANCE BILL [address] [place] [address] * (ABNORMAL) COMPREHENSIVE METABOLIC PANEL (02/03/2024 1:03 AM CDT) BUN 9 7 - 26 mg/dL 02/03/2024 1:45 AM [facility] Creatinine 0.64 0.56 - 0.96 mg/dL 02/03/2024 1:45 AM [facility] Sodium 139 136 - 145 mmol/L 02/03/2024 1:45 AM [facility] Potassium 3.4(L) 3.5 - 4.5 mmol/L 02/03/2024 1:45 AM [facility] Chloride 107 98 - 107 mmol/L 02/03/2024 1:45 AM [facility] CO2 21(L) 22 - 29 mmol/L 02/03/2024 1:45 AM [facility] Glucose 78 70 - 115 mg/dL 02/03/2024 1:45 AM [facility] Calcium 9.9 8.4 - 10.2 mg/dL 02/03/2024 1:45 AM [facility] Protein Total 7.7 6.0 - 8.3 g/dL 02/03/2024 1:45 AM [facility] Albumin 4.4 3.4 - 5.0 g/dL 02/03/2024 1:45 AM [facility] Bilirubin Total 0.4 0.2 - 1.2 mg/dL 02/03/2024 1:45 AM [facility] Alkaline Phosphatase 81 40 - 150 U/L 02/03/2024 1:45 AM [facility] ALT 58(H) 5 - 55 U/L 02/03/2024 1:45 AM [facility] AST 33 5 - 34 U/L 02/03/2024 1:45 AM [facility] Anion Gap 11 6 - 16 02/03/2024 1:45 AM [facility] BUN/Creatinine Ratio 14 7 - 23 02/03/2024 1:45 AM [facility] Osmolality Calculated 286 275 - 295 mOsm/kg 02/03/2024 1:45 AM [facility] Albumin/Globulin Ratio 1.3 1.1 - 2.3 02/03/2024 1:45 AM [facility] eGFR by CKD-EPI >90 >=90 mL/min/1.7 3 m2 02/03/2024 1:45 AM [facility] Blood BLOOD SPECIMEN / Unknown Venipuncture / Unknown 02/03/2024 1:03 AM CDT 02/03/2024 1:17 AM [facility] Kaylee Reyes MD LAB - CHEMISTRY TOBY BILLY [facility] Organization Address City/State/ZIP Co de Phone Number [facility] [address] [place] [address], [facility] [phone] from Last 3 Months or Most Recently Relevant to Health Maintenance Care Teams Associate Agent Insurance Sales Relationship Specialty Start Date End Date Damian Sadler MD PCP - General Internal Medicine 07/04/16
--- OUTSIDE RECORDS SUMMARY | 2024-10-21 09:21 | XMS_ITS | Clinical Summary ---
Author Organization [facility] [employer] Address [address] [place] [address] Care Team Providers Care Customer Success Advocate Name Role Phone Damian Sadler MD Primary Care Provider [phone] Source Comments [facility] [employer],non-owned Affiliates and Associated Physician Practices is amultiple site organization consisting of ambulatory clinics and hospital sitesin [place], [place], [place] and [place]. This disclosure is being madepursuant to the Care Everywhere program and may not contain all information available regarding this patient. Last updated 18.[facility] [employer] Allergies Active Allergy Reactions Criticality Noted Date [...] of 2 - PCV) 1998 COVID-19 VACCINE (2023-2 5 season) 2024 INFLUENZA VACCINE (#1) 2024 [...] complete this topic MENINGOCOCCAL (Group B) VACCINE SHARED DECISION-MAKING Aged Out No longer eligible based on patient's age to complete this topic MENINGOCOCCAL GROUPS A/C/Y/W VACCINE Aged Out No longer eligible b [...] Resulting Agency Comment Lab Testing performed at: [address] [phone] Nancy Cotto MD LAB - CHEMISTRY [facility]BY BILLY [facility] INSURANCE BILL [address] [facility] [place] [address] * (ABNORMAL) COMPREHENSIVE METABOLIC PANEL (02/03/2024 1:03 AM [facility]) BUN 9 7 - 26 mg/dL 02/03/2024 1:45 AM [facility] Creatinine 0.64 0.56 - 0.96 mg/dL 02/03/2024 1:45 AM [facility] Sodium 139 136 - 145 mmol/L 02/03/2024 1:45 AM [facility] Potassium 3.4(L) 3.5 - 4.5 mmol/L 02/03/2024 1:45 AM [facility] Chloride 107 98 - 107 mmol/L 02/03/2024 1:45 AM [facility] CO2 21(L) 22 - 29 mmol/L 02/03/2024 1:45 AM [facility] Glucose 78 70 - 115 mg/dL 02/03/2024 1:45 AM [facility] Calcium 9.9 8.4 - 10.2 mg/dL 02/03/2024 1:45 AM [facility] Protein Total 7.7 6.0 - 8.3 g/dL 02/03/2024 1:45 AM [facility] Albumin 4.4 3.4 - 5.0 g/dL 02/03/2024 1:45 AM [facility] Bilirubin Total 0.4 0.2 - 1.2 mg/dL 02/03/2024 1:45 AM [facility] Alkaline Phosphatase 81 40 - 150 U/L 02/03/2024 1:45 AM [facility] ALT 58(H) 5 - 55 U/L 02/03/2024 1:45 AM [facility] AST 33 5 - 34 U/L 02/03/2024 1:45 AM [facility] Anion Gap 11 6 - 16 02/03/2024 1:45 AM [facility] BUN/Creatinine Ratio 14 7 - 23 02/03/2024 1:45 AM [facility] Osmolality Calculated 286 275 - 295 mOsm/kg 02/03/2024 1:45 AM [facility] Albumin/Globulin Ratio 1.3 1.1 - 2.3 02/03/2024 1:45 AM CDT [facility] eGFR by CKD-EPI >90 >=90 mL/min/1.7 3 m2 02/03/2024 1:45 AM [facility] Blood BLOOD SPECIMEN / Unknown Venipuncture / Unknown 02/03/2024 1:03 AM CDT 02/03/2024 1:17 AM CDT Kaylee Reyes MD LAB - CHEMISTRY TOBY BILLY [facility] [address] [place] [address], [facility] [phone] from Last 3 Months or Most Recently Relevant to Health Maintenance Care Teams Customer Success Advocate Relationship Specialty Start Date End Date Damian Sadler MD PCP - General Internal Medicine 07/04/16
--- OUTSIDE RECORDS SUMMARY | 2024-10-21 09:21 | XMS_ITS | CONTINUITY OF CARE DOCUMENT ---
Author Name [email or web address] Address Unknown Organization [facility] Address [address] [place] [address] Phone [phone] Care Team Providers Care Skein Bander Name Role Phone William CURIEL, Herlinda Unavailable SHAWNEE CURIEL, NABIL Schmidt Unavailable INSURANCE PROVIDERS Payer name Policy type / Coverage type Bj red constitution party ID [employer] Medicaid [id number] [facility] [id number]
--- OUTSIDE RECORDS SUMMARY | 2024-10-21 09:22 | XMS_ITS | Patient Health Summary ---
Author Organization [facility] Address [address] [place] [address] Care Team Providers Care Gauge Inspector Name Role Phone Damian Sadler MD Primary Care Provider [phone] Note from [facility],non-owned Affiliates and Associated Physician Practices is amultiple site organization consisting of ambulatory clinics and hospital sitesin [place], [place], [place] and [place]. This disclosure is being madepursuant to the Care Everywhere program and may not contain all information available regarding this patient. Last updated 18.[facility] Allergies * Hydralazine(Vomiting) * Ketorolac(Itching) * [...] M54.2: Cervicalgia R53.83: Other fatigue Z79.899: Other exterminator termite (current) 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 Additional History: COMPARISON: None. [...] M54.2: Cervicalgia R53.83: Other fatigue Z79.899: Other fpc (current) 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 Additional History: COMPARISON: None. [...] M54.2: Cervicalgia. R53.83: Other fatigue. Z79.899: Other fpc (current) 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. Additional History: COMPARISON: None. [...] M54.2: Cervicalgia. R53.83: Other fatigue. Z79.899: Other exterminator termite (current) 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. Additional History: COMPARISON: None. [...] Darcy Alfaro MD on 02/20/2024 12:18 PM Nnacy Cotto MD DIAGNOSTIC IMAGING O RDERABLES * [...] M54.2: Cervicalgia. R53.83: Other fatigue. Z79.899: Other exterminator termite (current) 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. Additional History: COMPARISON: None. [...] M54.2: Cervicalgia. R53.83: Other fatigue. Z79.899: Other exterminator termite (current) 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. Additional History: COMPARISON: None. [...] Resulting Agency Comment Lab Testing performed at: [facility] [address] [facility] [id number] Nancy Cotto MD LAB - CHEMISTRY TOBY BILLY [facility] Organization Address City/State/ZIP Co de Phone Number [facility] INSURANCE BILL [address] [place] [address] * HEPATITIS SCREEN ACUTE ([facility]) (02/20/2024 10:47 [...] Resulting Agency Comment Lab Testing performed at: [facility] [address] [facility] [phone] Nancy Cotto MD LAB - CHEMISTRY TOBY BILLY [facility] INSURANCE BILL [address] [place] [address] * RHEUMATOID ARTHRITIS 14-3-3 ETA (02/20/2024 10:47 AM CDT) 14.3.3 eta Protein <0.20 ng/mL [facility] INSURANCE BILL Comment: Reference Range: < 0.20 Comments: 14-3-3 eta protein is a joint-derived, proinflammatory multicraft operator that is implicated in the joint [...] et al. 14-3-3 eta is a novel multicraft operator associated with the pathogenesis of rheumatoid arthritis and joint damage. Arthritis Res Ther 2014;16:R99. This test was developed and its performance characteristics determined by [employer]. It has not been cleared or approved by the Food and Drug Administration. Blood BLOOD SPECIMEN / Unknown 02/20/2024 10:47 AM CDT 02/20/2024 Narrative Resulting Agency Comment Lab Testing performed at: [facility] [address] [place] [address] [phone] Nancy Cotto MD LAB - CHEMISTRY ORDE RABLES Performing Organization Address [facility]/ZIP Co de Phone Number [facility] INSURANCE BILL [address] [place] [address] * INTERPRETATION REFLEXED (02/20/2024 10:47 AM CDT) Interpretation [facility] INSURANCE BILL Comment: Not infected with HCV unless early or acute infection is suspected (which may be delayed in an immunocompromised individual), or other evidence exists to indicate HCV infection. 02/20/2024 10:4 7 AM CDT 02/20/2024 Narrative Resulting Agency Comment Lab Testing performed at: [facility] [address] [facility] [phone] Nancy Cotto MD LAB - SEROLOGY ORDER ROLANDA Performing Organization Address City/[facility] Co de Phone Number [facility] INSURANCE BILL [address] [place] [address] * (ABNORMAL) IMMUNOFIXATION BLOOD (02/20/2024 10:47 AM [...] Resulting Agency Comment Lab Testing performed at: [facility] [address] [facility] [phone] Nancy Cotto MD LAB - CHEMISTRY TOBY BILLY [facility] INSURANCE BILL [address] [place] [address] * RHEUMATOID FACTOR BLOOD QUANTITATIVE (02/20/2024 10:47 AM CDT) Rheumatoid Factor <10.0 <14.0 IU/mL [facility] INSURANCE BILL Blood BLOOD SPECIMEN / Unknown 02/20/2024 10:47 AM CDT 02/20/2024 Narrative Resulting Agency Comment Lab Testing performed at: [address] [phone] Nancy Cotto MD LAB - CHEMISTRY TOBY BILLY Performing Organization Address [facility]/ZIP Co de Phone Number [facility] INSURANCE BILL [address] [place] [address] * C-REACTIVE PROTEIN (02/20/2024 10:47 AM CDT) Only the most recent of2 resultswithin the time period is included. C-Reactive Protein <1 0 - 10 mg/L [facility] INSURANCE BILL Blood BLOOD SPECIMEN / Unknown 02/20/2024 10:47 AM CDT 02/20/2024 Narrative Resulting Agency Comment Lab Testing performed at: [facility] [address] [facility] [phone] Nancy Cotto MD LAB - CHEMISTRY TOBY BILLY [facility] INSURANCE BILL [address] [place] [address] * HLA TYPING B27 (02/20/2024 10:47 AM CDT) HLA-B27 Negative [facility] INSURANCE BILL Comment: HLA-B*27 Negative B27 allele interpretation for all loci based on IMGT/HLA database version 3.51.0 This test was developed and its performance characteristics determined by [employer]. It has not been cleared or approved by the Food and Drug Administration. HLA Lab CLIA ID Number [id number] This test was performed using Polymerase Chain Reaction (PCR) and Sequence Specific Oligonucleotide Probes (SSOP) technique. Sequence Based Typing (SBT) may be used as a supplemental method when necessary. If you have questions, please call [facility] customer service at or email at [email or web address]. Blood BLOOD SPECIMEN / Unknown 02/20/2024 10:47 AM CDT 02/20/2024 Narrative Resulting Agency Comment Lab Testing performed at: [place] [address] [facility] [phone] Nancy Cotto MD LAB - CHEMISTRY TOBY BILLY Performing Organization Address City/[facility]/ZIP Co de Phone Number [facility] [address] [place] [address] * ANGIOTENSIN CONVERTING ENZYME BLOOD (02/20/2024 10:47 AM CDT) Angiotensin-Con verting Enzyme 77 14 - 82 U/L [facility] Blood BLOOD SPECIMEN / Unknown 02/20/2024 10:47 AM CDT 02/20/2024 Narrative Resulting Agency Comment Lab Testing performed at: [place] [id number] [facility] [id number] Nancy Cotto MD LAB - CHEMISTRY TOBY BILLY Performing Organization Address City/[facility]/ZIP Co de Phone Number [facility] INSURANCE BILL [address] [place] [address] * ALDOLASE (02/20/2024 10:47 AM CDT) Aldolase 6.9 3.3 - 10.3 U/L [facility] INSURANCE BILL Blood BLOOD SPECIMEN / Unknown 02/20/2024 10:47 AM CDT 02/20/2024 Narrative Resulting Agency Comment Lab Testing performed at: [place] [id number] [facility] [phone] Nancy Cotto MD LAB - CHEMISTRY TOBY BILLY Performing Organization Address [facility]/ZIP Co de Phone Number [facility] INSURANCE BILL [address] [place] [address] * CYCLIC CITRULLINATED PEPTIDE(CCP) AB IGG (02/20/2024 10:47 AM CDT) CCP Antibodies IgG/IgA <20 <20 Units [facility] INSURANCE BILL Comment: Negative: <20 Weak Positive: 20-39 Moderate Positive: 40-59 Strong Positive: >59 Blood BLOOD SPECIMEN / Unknown 02/20/2024 10:47 AM CDT 02/20/2024 Narrative Resulting Agency Comment Lab Testing performed at: [facility] [address] [place] [address] [phone] Nancy Cotto MD LAB - CHEMISTRY TOBY BILLY Performing Organization Address [facility] Co de Phone Number [facility] INSURANCE BILL [address] [place] [address] * ERYTHROCYTE SEDIMENTATION RATE (02/20/2024 10:47 AM CDT) Only the most recent of2 resultswithin the time period is included. Erythrocyte Sedimentation Rate Westergren 10 0 - 32 mm/hr [facility] INSURANCE BILL Blood BLOOD SPECIMEN / Unknown 02/20/2024 10:47 AM CDT 02/20/2024 Narrative Resulting Agency Comment Lab Testing performed at: [facility] [address] [facility] [phone] Nancy Cotto MD LAB - HEMATOLOGY ORD ERABLES Performing Organization Address City/[facility]/ZIP Co de Phone Number [facility] INSURANCE BILL [address] [place] [address] * COMPLEMENT C4 (02/20/2024 10:47 AM CDT) Complement C4 26 14 - 44 mg/dL [facility] INSURANCE BILL Blood BLOOD SPECIMEN / Unknown 02/20/2024 10:47 AM CDT 02/20/2024 Narrative Resulting Agency Comment Lab Testing performed at: [facility] [address] [facility] [phone] Nancy Cotto MD LAB - SEROLOGY ORDER ROLANDA [facility] INSURANCE BILL [address] [place] [address] * CK BLOOD (02/20/2024 10:47 AM CDT) Pathologist [facility] CK 73 32 - 182 U/L [facility] INSURANCE BILL Blood BLOOD SPECIMEN / Unknown 02/20/2024 10:47 AM CDT 02/20/2024 Narrative Resulting Agency Comment Lab Testing performed at: [facility] [place] [address] [facility] [phone] Nancy Cotto MD LAB - CHEMISTRY ORDE RABLES Performing Organization Address City/[facility]/ZIP Co de Phone Number [facility] INSURANCE BILL [address] [place] [address] * PROTEIN ELECTROPHORESIS BLOOD (02/20/2024 10:47 AM CDT) Only the most recent of2 resultswithin the time period is included. Pathologist [facility] Protein Total 6.7 6.0 - 8.5 g/dL [facility] INSURANCE BILL Albumin 3.8 2.9 - 4.4 g/dL [facility] INSURANCE BILL Alpha-1 Globulin 0.2 0.0 - 0.4 g/dL [facility] INSURANCE BILL Hvscr-4-Wntqiyvu 0.6 0.4 - 1.0 g/dL [facility] INSURANCE [...] scan will follow via computer, mail, or plant machinist delivery. P E Interpretation, S [facility] INSURANCE BILL Comment: The SPE pattern appears unremarkable. Evidence of monoclonal protein is not apparent. Blood BLOOD SPECIMEN / Unknown 02/20/2024 10:47 AM CDT 02/20/2024 Narrative Resulting Agency Comment Lab Testing performed at: [facility] [place] [address] [facility] [phone] Nancy Cotto MD LAB - CHEMISTRY TOBY BILLY Performing Organization Address [facility]/ZIP Co de Phone Number [facility] INSURANCE BILL [address] [place] [address] * (ABNORMAL) COMPLEMENT C3 (02/20/2024 10:47 AM CDT) Complement C3 187(H) 82 - 167 mg/dL [facility] INSURANCE BILL Blood BLOOD SPECIMEN / Unknown 02/20/2024 10:47 AM CDT 02/20/2024 Narrative Resulting Agency Comment Lab Testing performed at: [facility] [address] [facility] [phone] Nancy Cotto MD LAB - CHEMISTRY TOBY BILLY Performing Organization Address [facility]/ZIP Co de Phone Number [facility] INSURANCE BILL [address] [place] [address] * MERLIN PANEL COMPREHENSIVE (02/20/2024 10:46 AM CDT) Anti-dsDNA Quantitative <1 0 - 9 IU/mL [facility] INSURANCE BILL Comment: Negative <5 Equivocal 5 - 9 Positive >9 EVS TECH Antibody 0.2 0.0 - 0.9 AI [facility] [...] Sm (anti-Tellez) SLE 15 - 30% --------- EVS TECH Mixed Connective Tissue Disease 95% (U1 nRNP, SLE 30 - 50% anti-ribonucleoprotein) Polymyositis and/or Dermatomyositis 20% --------- Scl-70 (antiDNA Scleroderma (diffuse) 20 - 35% topoisomerase) Crest 13% --------- Lorna-1 Polymyositis and/or Dermatomyositis 20 - 40% --------- Centromere B Scleroderma - Crest variant 80% Blood BLOOD SPECIMEN / Unknown 02/20/2024 10:46 AM CDT 02/20/2024 Narrative Resulting Agency Comment Lab Testing performed at: [facility] [address] [facility] [phone] Nancy Cotto MD LAB - SEROLOGY ORDER ROLANDA [facility] INSURANCE BILL [address] [place] [address] * ANCA VASCULITIS PANEL (02/20/2024 10:46 AM [...] Resulting Agency Comment Lab Testing performed at: [address] [phone] Nancy Cotto MD LAB - CHEMISTRY TOBY BILLY [facility] INS[facility] [address] [place] [address] * THIOPURINE METHYLTRANSFERASE (02/20/2024 10:46 AM CDT) TPMT Activity 25.6 Units/mL RBC [facility] Comment: Reference Range: Normal: 15.1 - 26.4 Heterozygous for low TPMT variant: 6.3 - 15.0 Homozygous for low TPMT variant: <6.3 Interpretation [facility] INSURANCE BILL Comment: The above results can be interpreted as Normal for red blood cell Thiopurine Methyltransferase activity. For patients having an intrinsic low level of TPMT, recent RBC transfusion can variably increase their assayed enzymatic activity depending on the amount and circulating half-life of the transfused red blood cells. This test was developed and its performance characteristics determined by [facility]. It has not been cleared or approved by the Food and Drug Administration. This case has been reviewed, approved, interpreted and electronically signed by Kodi Weldon, PhD, [facility]. Methodology [facility] Comment: Enzymatic Endpoint/Liquid Chromatography - Tandem Mass Spectrometry (LC-MS/MS) Blood BLOOD SPECIMEN / Unknown 02/20/2024 10:46 AM CDT 02/20/2024 Narrative Resulting Agency Comment Lab Testing performed at: [facility] [phone] Nancy Cotto MD LAB - CHEMISTRY TOBY BILLY Performing Organization Address City/[facility]/ZIP Co de Phone Number [facility] [address] [place] [address] * IRON + TIBC PANEL (02/20/2024 10:46 [...] Resulting Agency Comment Lab Testing performed at: [email or web address] [place] [address] [facility] [phone] Nancy Cotto MD LAB - CHEMISTRY TOBY BILLY Performing Organization Address City/[facility]/ZIP Co de Phone Number [facility] INSURANCE BILL [address] [place] [address] * CBC W AUTO DIFFERENTIAL (02/03/2024 1:03 AM CDT) Only the most recent of2 resultswithin the time period is included. WBC 7.8 4.0 - 10.7 x10E9/L 02/03/2024 1:27 AM CDT [facility] RBC Count 5.03 3.90 - 5.20 x10E12/L 02/03/2024 1:27 AM CDT [facility] Hemoglobin 15.3 11.9 - 15.8 g/dL 02/03/2024 1:27 AM CDT [facility] Hematocrit 42.7 34.8 - 46.1 % 02/03/2024 1:27 AM CDT [facility] MCV 84.9 80.0 - 98.0 fL 02/03/2024 1:27 AM [facility] MCH 30.4 26.7 - 33.6 pg 02/03/2024 1:27 AM [facility] MCHC 35.8 31.7 - 36.3 g/dL 02/03/2024 1:27 AM [facility] RDW-CV 11.7 11.3 - 14.8 % 02/03/2024 1:27 AM [facility] Platelet Count 273 150 - 420 x10E9/L 02/03/2024 1:27 AM [facility] MPV 9.4 7.8 - 11.4 fL 02/03/2024 1:27 AM [facility] Neutrophil % 61.8 41.0 - 74.0 % 02/03/2024 1:27 AM [facility] Lymphocyte % 28.0 17.0 - 47.0 % 02/03/2024 1:27 AM [facility] Monocyte % 7.7 3.0 - 11.0 % 02/03/2024 1:27 AM [facility] Eosinophil % 2.0 0.0 - 7.0 % 02/03/2024 1:27 AM [facility] Basophil % 0.4 0.0 - 1.6 % 02/03/2024 1:27 AM [facility] Immature Granulocytes % 0.1 0.0 - 1.0 % 02/03/2024 1:27 AM [facility] Neutrophil Absolute 4.84 1.60 - 7.50 x10E9/L 02/03/2024 1:27 AM [facility] Lymphocyte Absolute 2.19 1.00 - 4.40 x10E9/L 02/03/2024 1:27 AM [facility] Monocyte Absolute 0.60 0.15 - 1.00 x10E9/L 02/03/2024 1:27 AM [facility] Eosinophil Absolute 0.16 0.00 - 0.60 x10E9/L 02/03/2024 1:27 AM [facility] Basophil Absolute 0.03 0.00 - 0.13 x10E9/L 02/03/2024 1:27 AM [facility] Blood BLOOD SPECIMEN / Unknown Venipuncture / Unknown 02/03/2024 1:03 AM CDT 02/03/2024 1:17 AM CDT Kaylee Reyes MD LAB - HEMATOLOGY ORD ERABLES [facility] [address] [place] [address], [facility] [phone] * (ABNORMAL) COMPREHENSIVE METABOLIC PANEL (02/03/2024 1:03 AM CDT) Only the most recent of2 resultswithin the time period is included. BUN 9 7 - 26 mg/dL 02/03/2024 1:45 AM [facility] Creatinine 0.64 0.56 - 0.96 mg/dL 02/03/2024 1:45 AM [facility] Sodium 139 136 - 145 mmol/L 02/03/2024 1:45 AM [facility] Potassium 3.4(L) 3.5 - 4.5 mmol/L 02/03/2024 1:45 AM [facility] Chloride 107 98 - 107 mmol/L 02/03/2024 1:45 AM [facility] CO2 21(L) 22 - 29 mmol/L 02/03/2024 1:45 AM [facility] Glucose 78 70 - 115 mg/dL 02/03/2024 1:45 AM [facility] Calcium 9.9 8.4 - 10.2 mg/dL 02/03/2024 1:45 AM [facility] Protein Total 7.7 6.0 - 8.3 g/dL 02/03/2024 1:45 AM [facility] Albumin 4.4 3.4 - 5.0 g/dL 02/03/2024 1:45 AM [facility] Bilirubin Total 0.4 0.2 - 1.2 mg/dL 02/03/2024 1:45 AM [facility] Alkaline Phosphatase 81 40 - 150 U/L 02/03/2024 1:45 AM [facility] ALT 58(H) 5 - 55 U/L 02/03/2024 1:45 AM [facility] AST 33 5 - 34 U/L 02/03/2024 1:45 AM [facility] Anion Gap 11 6 - 16 02/03/2024 1:45 AM [facility] BUN/Creatinine Ratio 14 7 - 23 02/03/2024 1:45 AM [facility] Osmolality Calculated 286 275 - 295 mOsm/kg 02/03/2024 1:45 AM [facility] Albumin/Globulin Ratio 1.3 1.1 - 2.3 02/03/2024 1:45 AM [facility] eGFR by CKD-EPI >90 >=90 mL/min/1.7 3 m2 02/03/2024 1:45 AM [facility] Blood BLOOD SPECIMEN / Unknown Venipuncture / Unknown 02/03/2024 1:03 AM CDT 02/03/2024 1:17 AM [facility] Kaylee Reyes MD LAB - CHEMISTRY ORDRei [facility] Organization Address City/State/ZIP Co de Phone Number [facility] [address] [place] [address], [facility] [phone] * (ABNORMAL) URINALYSIS W/MICROSCOPIC NO CULTURE (02/03/2024 12:57 AM T) Color UA Yellow Straw, Yellow 02/03/2024 1:40 AM [facility] Clarity UA t Cloudy(A) Clear 02/03/2024 1:40 AM [facility] Specific [place] UA 1.020 1.005 - 1.030 02/03/2024 1:40 AM [facility] pH UA 5.0 5.0 - 8.0 pH 02/03/2024 1:40 AM [facility] Protein UA Negative Negative 02/03/2024 1:40 AM [facility] Glucose UA Negative Negative 02/03/2024 1:40 AM [facility] Ketone UA Negative Negative 02/03/2024 1:40 AM [facility] Bilirubin UA Negative Negative 02/03/2024 1:40 AM CDT [facility] Blood UA Negative Negative 02/03/2024 1:40 AM CDT [facility] Nitrite UA Negative Negative 02/03/2024 1:40 AM CDT [facility] Leukocyte Esterase Negative Negative 02/03/2024 1:40 AM CDT [facility] Urobilinogen UA Negative Negative mg/dL 02/03/2024 1:40 AM CDT [facility] RBC UA 6-10(A) None Seen, 0-2, 3-5 /HPF 02/03/2024 1:40 AM CDT [facility] WBC UA 0-5 None Seen, 0-5 /HPF 02/03/2024 1:40 AM T [facility] Squamous Epithelial Cells UA 6-10(A) None Seen, 0-2, 3-5 /HPF 02/03/2024 1:40 AM CDT [facility] Mucus UA 2+ /LPF 02/03/2024 1:40 AM CDT [facility] Urine URINE SPECIMEN OBTAINED BY CLEAN CATCH PROCEDURE / Unknown Collection / Unknown 02/03/2024 12:57 AM CDT 02/03/2024 1:13 AM CDT Narrative [facility] - 02/03/2024 1:40 AM CDT Kaylee Reyes MD LAB - URINALYSIS ORD ERABLES [facility] [address] [place] [address], [facility] [phone] * CT RENAL STONE (02/03/2024 12:19 AM [...] Dictated by Samy Johnson MD, PhD (radiology scheduler). I, Haylee Lopez MD have personally reviewed and interpreted this examination/study. > Interpreting Provider: Haylee Lopez MD on 02/03/2024 10:15 AM Narrative 02/03/2024 10:15 AM CDT PROCEDURE: CT RENAL STONE, DATE/TIME OF EXAM: 02/03/2024 12:19 AM, LOCATION [facility] INDICATION: R10.9: Flank pain ADDITIONAL CLINICAL [...] DATE/TIME OF EXAM: 02/03/2024 12:19 AM, LOCATION [facility] INDICATION: R10.9: Flank pain ADDITIONAL CLINICAL [...] Dictated by Samy Johnson MD, PhD (radiology scheduler). I, Haylee Lopez MD have personally reviewed and interpreted this examination/study. > Interpreting Provider: Haylee Lopez MD on 410:15 AM Kaylee Reyes MD CT ORDERABLES * HCG URINE QUAL POCT NOTIFICATION (06/04/2019 1:02 PM CDT) Comment Notification Label Only - See Separate Report 06/04/2019 1:02 PM CDT [facility] Urine URINE / Unknown 11:47 AM CDT Tarun Garcia MD LAB - URINALYSIS OR DERABLES [facility] [address] [place] [address] * CT ABDOMEN AND PELVIS WITH IV [...] on 06/04/2019 at 1:11 PM Luna Durant EXPERIENCE PLANNING STRATEGIST-CLINICAL REHABILITATION LIAISON CT ORDERABLES * URINALYSIS REFLEX MICROSCOPIC REFLEX CULTURE (06/04/2019 12:07 PM CDT) Color UA Straw Straw, Yellow 06/04/2019 12:14 PM CDT [facility] Clarity UA Clear Clear 06/04/2019 12:14 PM CDT [facility] Glucose UA Negative Negative 06/04/2019 12:14 PM [facility] Bilirubin UA Negative Negative 06/04/2019 12:14 PM [facility] Ketone UA Negative Negative 06/04/2019 12:14 PM [facility] Specific [place] UA 1.006 1.005 - 1.030 06/04/2019 12:14 PM CDT [facility] Blood UA Negative Negative 06/04/2019 12:14 PM [facility] pH UA 7.0 5.0 - 8.0 pH 06/04/2019 12:14 PM [facility] Protein UA Negative Negative 06/04/2019 12:14 PM CDT [facility] Urobilinogen UA Negative Negative mg/dL 06/04/2019 12:14 PM CDT [facility] Nitrite UA Negative Negative 06/04/2019 12:14 PM CDT [facility] Leukocyte UA Negative Negative 06/04/2019 12:14 PM [facility] Urine Microscopy Urine microscopy not indicated 06/04/2019 12:14 PM [facility] Reflex Status Culture not indicated 06/04/2019 12:14 PM CDT [facility] Urine URINE SPECIMEN OBTAINED BY CLEAN CATCH PROCEDURE / Unknown Collection / Unknown 06/04/2019 12:07 PM CDT 06/04/2019 12:09 PM CDT Narrative [facility] - 06/04/2019 12:14 PM CDT Tarun Garcia MD LAB - URINALYSIS OR DERABLES Performing Organization Address City/[facility]/ZIP Co de Phone Number [facility] [address] [place] [address] * HCG URINE QUALITATIVE - POCT (IP) INTERFACED (06/04/2019 12:06 PM CDT) HCG Qual Urine Negative Negative 06/04/2019 12:12 PM CDT [facility] Urine URINE / Unknown 06/04/2019 1 2:06 PM CDT 06/04/2019 12:12 PM CDT Provider Unknown LAB - POINT OF CARE ORDERABLES Performing Organization Address City/[facility]/ZIP Co de Phone Number [facility] [address] [place] [address] * LIPASE BLOOD (06/04/2019 11:56 AM CDT) Lipase 29 8 - 78 U/L 06/04/2019 12:59 PM CDT [facility] Blood BLOOD SPECIMEN / Unknown Venipuncture / Unknown 06/04/2019 11:56 AM CDT 06/04/2019 12:06 PM CDT Luna Durant EXPERIENCE PLANNING STRATEGIST-CLINICAL REHABILITATION LIAISON LAB - CHEMISTRY O RDERABLES [facility] [address] [place] [address] * RPR (08/27/2016 3:46 PM CRANK HAND) RPR Non Reactive Non Reactive [facility] ACCOUNT BILL Blood BLOOD SPECIMEN / Unknown 08/27/2016 3:46 PM CRANK HAND 08/27/2016 Narrative Resulting Agency Comment [facility] [address] [phone] Albert Hutchinson MD LAB - CHEMISTRY TOBY BILLY Performing Organization Address City/[facility]/ZIP Co de Phone Number [facility] ACCOUNT BILL [address] [place] [address] * VITAMIN B6 (08/27/2016 3:46 PM CRANK HAND) Vitamin B6 14.9 2.0 - 32.8 ug/L [facility] ACCOUNT BILL Blood BLOOD SPECIMEN / Unknown 08/27/2016 3:46 PM CRANK HAND 08/27/2016 Narrative Resulting Agency Comment [facility] [address] [phone] Albert Hutchinson MD LAB - CHEMISTRY TOBY BILLY Performing Organization Address [facility] Co de Phone Number [facility] ACCOUNT BILL [address] [place] [address] * VITAMIN B12 FOLATE PANEL (08/27/2016 3:46 PM CRANK HAND) Vitamin B12 879 211 - 911 pg/mL [facility] ACCOUNT BILL Folate 13.6 3.1 - 17.5 ng/mL [facility] ACCOUNT BILL Blood BLOOD SPECIMEN / Unknown 08/27/2016 3:46 PM CRANK HAND 08/27/2016 Narrative Resulting Agency Comment [facility] [address] [phone] Albert Hutchinson MD LAB - CHEMISTRY TOBY BILLY Performing Organization Address City/[facility] Co de Phone Number [facility] ACCOUNT BILL [address] [place] [address] * (ABNORMAL) TSH (08/27/2016 3:46 PM CRANK HAND) TSH 0.280(L) 0.358 - 3.740 uIU/mL [facility] ACCOUNT BILL Blood BLOOD SPECIMEN / Unknown 08/27/2016 3:46 PM CRANK HAND 08/27/2016 Narrative Resulting Agency Comment [facility] [address] [phone] Albert Hutchinson MD LAB - CHEMISTRY DARIARei WENCESLAO [facility] ACCOUNT [place] [address] * IMAGING/RADIOLOGY/XRAY RESULTS ORDER (10/20/2009 6:02 AM CRANK HAND) Anatomical Region Laterality Modality Other Narrative 10/20/2009 6:02 AM CRANK HAND Ordered by an unspecified provider. Transcriptions Document, Scanned - 09/20/2009 12:00 AM CRANK HAND Scanned Document IMAGING * CHROMOSOME ANALYSIS AMNIO PANEL (08/31/2009 12:00 PM CRANK HAND) Chromosome Analysis Amniotic Fluid See Scanned Report [facility] Comment Amniotic Fluid [facility] AMNIOTIC FLUID SPECIMEN / Unknown 08/31/2009 12:00 PM CRANK HAND 08/31/2009 12:40 PM CRANK HAND Arvin Anderson MD LAB - PATHOLOGY/CYTO LOGY ORDERABLES [facility] [address] [place] [address] Care Teams Gauge Inspector Relationship Specialty Start Date End Date Damian Sadler MD PCP - General Internal Medicine 07/04/16
[2024-10-21] MEDS: LACTATED RINGERS 1,000 ML 30 ML IV CONT (11:05)
--- NOTE | 2024-10-21 11:53 | P.PNAN_ITS ---
Anes - Initial Pre Proc Eval Procedure: Operation Date: 10/21/24 15:30 Proposed Procedures p Cystoscopy, Right Retrograde Pyelogram,Right Ureteroscopy, Right Stone Extraction, Possible Holmium Laser, Possible Stent Placement - Maximino Gonzalez MD Date/Time: 10/21/24 11:53 Surgeon: Pamela Tao MD Pre Op Diagnosis: Kidney Stone, nausea vomiting decreased p.o. intak Patient Data Age: 44 Gender: F Height: 1.6 m Weight: 88.8 kg Last Vital Signs Temp 36.3 C L 10/21/24 11:05 Pulse 63 10/21/24 11:05 Resp 18 10/21/24 11:05 BP 168/92 H 10/21/24 11:05 Pulse Ox 96 10/21/24 11:05 O2 Del Method Room Air 10/21/24 11:05 Allergies Allergy/AdvReac Type Severity Reaction Status Date / Time ketorolac (From Toradol) Allergy Headache,Rash, Verified 10/20/24 22:39 Swollen tongue tramadol AdvReac Mild VOMITING/HE Verified 10/20/24 22:39 ADACHE hydralazine AdvReac Headache Verified 10/20/24 22:39 Home Medications ?Medication ?Instructions ?Recorded ?Confirmed ?Type multivitamin 1 tablet PO DAILY 04/04/22 10/21/24 History pregabalin 150 mg capsule 150 mg PO Q8H PRN pain 02/21/24 10/21/24 History losartan 50 mg tablet 50 mg PO BID #180 tabs 03/30/24 10/21/24 Rx cephalexin 500 mg capsule 500 mg PO Q12H #10 caps 08/23/24 10/21/24 Rx ondansetron 4 mg disintegrating 4 mg PO Q8H #14 tabs 10/12/24 10/21/24 Rx tablet hydrocodone 5 mg-acetaminophen 325 1 tablet PO Q8H PRN pain #15 tabs 10/18/24 10/21/24 Rx mg tablet tamsulosin 0.4 mg capsule 0.4 mg PO DAILY #14 caps 10/18/24 10/21/24 Rx hydrochlorothiazide 25 mg tablet 25 mg PO DAILY 10/21/24 10/21/24 History nebivolol 10 mg tablet (Bystolic) 10 mg PO DAILY 10/21/24 10/21/24 History Laboratory Tests 10/20/24 10/20/24 10/21/24 23:35 23:38 06:37 WBC 6.8 K/mm3 5.4 K/mm3 (4.5-10.0) (4.5-10.0) RBC 4.69 M/mm3 4.14 L M/mm3 (4.2-5.4) (4.2-5.4) Hgb 14.6 g/dL 12.7 g/dL (12.0-15.0) (12.0-15.0) Hct 41.4 % 38.0 % (37.0-47.0) (37.0-47.0) MCV 88.3 fl 91.8 fl (80-100) (80-100) MCH 31.1 pg 30.7 pg (26-34) (26-34) MCHC 35.3 g/dl 33.4 g/dl (32-36) (32-36) RDW 12.8 % 13.0 % (11.5-14.5) (11.5-14.5) Plt Count 224 k/mm3 204 k/mm3 (150-375) (150-375) MPV 9.5 fl 9.7 fl (7.4-10.4) (7.4-10.4) Immature Gran % (Auto) 0.1 % 0.2 % (0-0.5) (0-0.5) Neut % (Auto) 45.8 % 44.1 L % (45.5-73.1) (45.5-73.1) Lymph % (Auto) 39.7 % 42.1 % (18.3-44.2) (18.3-44.2) Butts % (Auto) 11.3 H % 10.2 H % (2.6-8.5) (2.6-8.5) Eos % (Auto) 2.5 % 2.8 % (0-4.4) (0-4.4) Baso % (Auto) 0.6 % 0.6 % (0.2-1.2) (0.2-1.2) Lymph # (Auto) 2.68 K/mm3 2.28 K/mm3 (0.9-3.2) (0.9-3.2) Butts # (Auto) 0.8 H K/mm3 0.6 K/mm3 (0.1-0.6) (0.1-0.6) Eos # (Auto) 0.2 K/mm3 0.2 K/mm3 (0-0.3) (0-0.3) Baso # (Auto) 0.0 K/mm3 0.0 K/mm3 (0.0-0.1) (0.0-0.1) Abs Immat Gran (auto) 0.01 K/mm3 0.01 K/mm3 (0.00-0.031) (0.00-0.031) Absolute Neuts (auto) 3.1 K/mm3 2.4 K/mm3 (1.3-6.7) (1.3-6.7) Absolute Nucleated RBC 0.000 K/mm3 0.000 K/mm3 (0.0-0.012) (0.0-0.012) Nucleated RBC % 0.0 % 0.0 % (0.0-0.2) (0.0-0.2) Sodium 140 mmol/L 140 mmol/L (137-145) (137-145) Potassium 3.8 mmol/L 3.9 mmol/L (3.4-5.0) (3.4-5.0) Chloride 107 mmol/L 107 mmol/L (98-107) (98-107) Carbon Dioxide 21 L mmol/L 24 mmol/L (22-30) (22-30) Anion Gap 12 mmol/L 9 mmol/L (4-12) (4-12) BUN 16 mg/dL 15 mg/dL (7-17) (7-17) Creatinine 0.63 L mg/dL 0.61 L mg/dL (0.7-1.0) (0.7-1.0) Estim Creat Clear Calc 98 ml/min 105 ml/min Estimated GFR > 60 > 60 (59 - ) (59 - ) Glucose 101 mg/dL 85 mg/dL (65-110) (65-110) Calcium 9.5 mg/dL 8.5 mg/dL (8.4-10.2) (8.4-10.2) Magnesium 1.8 mg/dL 1.7 mg/dL (1.6-2.3) (1.6-2.3) Total Bilirubin 0.3 mg/dL 0.2 mg/dL (0.2-1.3) (0.2-1.3) AST 33 U/L 30 U/L (14-36) (14-36) ALT 39 H U/L 34 U/L (6-35) (6-35) Alkaline Phosphatase 82 U/L 75 U/L (38-126) (38-126) Total Protein 7.0 g/dL 7.0 g/dL (6.3-8.2) (6.3-8.2) Albumin 4.4 g/dL 3.8 g/dL (3.5-5.1) (3.5-5.1) Lipase 112 U/L (23-300) TSH 1.570 uIU/mL (0.465-4.680) Urine Color Yellow (Yellow) Urine Appearance Clear (Clear) Urine pH 5.5 (5.0-9.0) Ur Specific [place] 1.036 H (1.001-1.035) Urine Protein Trace mg/dL (Negative) Urine Glucose (UA) Negative mg/dL (Negative) Urine Ketones Trace H mg/dL (Negative) Ur Blood (Man) 1+ H (Negative) Urine Nitrate Negative (Negative) Urine Bilirubin Negative (Negative) Urine Urobilinogen 1.0 mg/dL (<2.0) Leukocyte Esterase Rfl Negative ALEKSANDRA/UL (Negative) Urine RBC 11-20 H /hpf (0-2) Urine WBC 6-10 H /hpf (0-3) Ur Squamous Epith Cells Few /hpf (Few) Urine Bacteria Rare /hpf Urine Casts 0-2 POC Urine HCG, Qual Negative (Negative) Patient hx anesthesia problems: none Family hx anesthesia problems: none Results Review: All pre-operative results and documents have been reviewed as part of the pre- operative evaluation. [facility] Past Medical History Medical History Hypertension Gastroesophageal reflux disease Sleep paralysis, recurrent isolated Smoker Obesity Depression Multiple kidney stones Seasonal allergies Surgical History Surgical History History of laparoscopic cholecystectomy on 04/25/23 PDC History of tubal ligation History of endometrial ablation (2009) History of hysterectomy (2016) History of open reduction and internal fixation (ORIF) procedure (2012) Left elbow. History of section 2000, 2001, 2010 Status post cystoscopy with ureteral stent placement Family History Family History Mother Diabetes mellitus Depression Alcoholism Father Hypertension Sibling Congenital heart disease Son Asthma Grandparent Diabetes mellitus Cerebrovascular accident Social History Social History Social History: Surrogate medical decision maker: Bang Luke, spouse. Code status: Full code. Smoking packs per day: 0.5 Smoking cigarettes per day: 10.0 Years smoked: 32 Smoking pack-years: 16.00 Smoking status: Current every day smoker Tobacco type: cigarettes Alcohol intake: never Alcohol use details: Social alcohol use in moderation. Substance use: never Substance use type: does not use Do You Feel Safe in your Home?: Yes Lack of Transportation: No Lack of Food: Never True Current Housing: I Have Housing Concerned About Future Housing: No Difficulty Paying Gas/Electric Bills: No Difficulty Paying for Meds: No Currently Unemployed: No Education: High School Diploma/GED Difficulty w/ Childcare or Family Care: No Living arrangements: with family Spiritual care concerns: No Anes - Eval Final PreProcedure Day of Procedure 10/21/24 11:53 Patient weight: obese Heart: regular rate and rhythm Lungs: clear to auscultation Airway: Mallampati scale class II Neurological: alert and oriented Last oral intake: >/= 8 hours ASA classification: III Emergent: no Anesthetic plan: proceed Anesthesia type and monitoring: general LMA and standard monitoring Results Review: All pre-operative results and documents have been reviewed as part of the pre- operative evaluation. Informed Consent: The patient's anesthetic plan and its attendant risks and benefits were discussed with the patient/family/POA. Questions were solicited and answers provided to the satisfaction of the patient/family/POA.
[2024-10-21] MEDS: ceFAZolin 2 GM/D5W 50 ML 2 GM/50 ML BAG IVPB (12:07)
--- NOTE | 2024-10-21 12:39 | W.PM.PROC2 ---
Procedure Note - Detailed Date of Procedure 10/21/24 Pre-op Diagnosis Right proximal ureteral stone Post-op Diagnosis Same Procedure Performed Cystoscopy, right ureteroscopy with stone extraction Surgeon Maximino Gonzalez MD Anesthesia General Description of Procedure Patient is brought to the operative suite where she was prepped and draped in routine sterile fashion while in dorsal lithotomy position after the uneventful induction of a general LMA anesthetic. Cystoscopy was undertaken with a 19 F rigid cystoscope. Bladder neck and urethra normal. Bladder mucosa is normal. There is no intravesical foreign body or neoplasm. 0.035 in glidewire was advanced into her solitary right ureteral orifice and into the right collecting system. Distal ureter was dilated with an 8 F 10 F dilator. Ureteroscopy was 1st undertaken with a short tapered semi-rigid ureteral scope. Could not reach the proximal ureteral stone. A 7.5 F flexible scope was placed. Stone was identified in the proximal ureter. With grasping the stone it immediately fractured into multiple small pieces all less than 1 mm. I did grab a couple ease with a 1.9 F disposable stone basket. Because of this ease of this manipulation and absence of any identifiable mucosal injury opted not to place ureteral stent. Scopes and wires removed she was taken recovery room good condition. Complications No immediate complications Condition Stable
--- NOTE | 2024-10-21 14:01 | SUR.PHASEI ---
1350 - dr. hernandez called and aware of b/p. 174/108. no orders at this time
[2024-10-21] MEDS: fentaNYL CITRATE INJ (*CRX) 100 MCG/2 ML VIAL 25 MCG IV PUSH ×2 (14:06→14:10)
[2024-10-21] MEDS: MULTIVITAMINS THERAPEUTIC TAB (*BKC) 1 TABLET PO (14:53)
[2024-10-21] MEDS: TAMSULOSIN HCL 0.4 MG CAPSULE PO (14:53)
[2024-10-21] MEDS: LOSARTAN POTASSIUM 50 MG TABLET PO (14:53)
[2024-10-21] MEDS: PANTOPRAZOLE 40 MG TABLET PO (14:53)
[2024-10-21] MEDS: hydroCHLOROthiazide 25 MG TABLET PO (14:53)
--- NOTE | 2024-10-21 14:57 | PC.NURSE ---
BP 198/130 Claudia De Jesus PLASTICS FITTER at bedside and aware.
--- NOTE | 2024-10-21 15:00 | P.DS_ITS ---
DS: Admitting Diagnosis Discharge Date 10/21/2024 Admitting Diagnosis 4 mm right ureteral stone DS: Discharge Diagnosis Discharge Diagnosis (1) Calculus of distal right ureter: Code(s): N20.1 - Calculus of ureter Status: Acute (2) Acute abdominal pain in right flank: Code(s): R10.9 - Unspecified abdominal pain Status: Acute (3) HTN (hypertension): Qualifiers: Hypertension type: primary hypertension Qualified Code(s): I10 - Essential (primary) hypertension Code(s): I10 - Essential (primary) hypertension Status: Acute (4) Gastroesophageal reflux disease: Qualifiers: Esophagitis presence: esophagitis presence not specified Qualified Code(s): K21.9 - Gastro-esophageal reflux disease without esophagitis Code(s): K21.9 - Gastro-esophageal reflux disease without esophagitis Status: Acute (5) Tobacco abuse: Code(s): Z72.0 - Tobacco use Status: Acute DS: Summary Hospital Course Reason for hospitalization: Right ureteral stone Hospital Course: Patient was a 44-year-old female with a significant past medical history of kidney stones, hypertension, GERD, obesity, depression, tobacco abuse who presented to the hospital with right flank pain and nausea. Patient is followed by Dr. Gonzalez for stones on an outpatient basis. She recently was in the ER on 10/17/2024 with right flank pain and was found to have a 4 mm ureteral stone. At that time she was on Flomax however her pain persisted and she had associated nausea. She was discharged from the emergency room as she wanted to follow-up with her urologist on an outpatient basis and she was discharged with pain medication and tamsulosin. She presented again today with right flank pain and nausea. Workup in the hospital included an abdomen pelvis CT which showed 3 mm proximal right ureteral stone without hydronephrosis, additional small bilateral nonobstructing renal stones. Abdominal x-ray did not reveal a definite stone. Patient was given 2 L of normal saline, Zofran, morphine, dilaudid, labetalol and started on maintenance IV fluids at 100 mL/hour while in the ED. Urology was consulted and patient was to the medical unit. Patient was then scheduled for cystoscopy with Urology and had a right ureteroscopy with stone extraction completed patient tolerated procedure well was seen after procedure no acute issues but did have some hypertension likely secondary to patient not getting her losartan prior to surgery. Resumed her losartan and improved. Patient was alert oriented prior to discharge and minimal right-sided pain postprocedure no acute issues or complaints at time of assessment. Patient had already completed 5 day course of Keflex UA negative for UTI. Patient was then discharged home after extraction stone with no stent placement I will have follow-up with Urology in 2-3 weeks. Patient is in no acute distress plan was discharged Status at Discharge Functional status at discharge: independent ambulation Overall status at discharge: patient is back to baseline Time Spent with Patient Time attestation: Total time spent providing and/or coordinating discharge services: Time spent: Greater than 30 minutes Exam Const: General: comfortable and no acute distress HENMT: Mouth: Yes moist mucous membranes Eyes: General: appearance normal, both eyes and all related structures Neck: Neck: supple and no JVD Resp: Effort & Inspection: normal respiratory effort Cardio: Rate: regular rate GI: GI Palp: Yes Soft to palpation Auscultation: normal bowel sounds Skin: General skin exam: normal color Neuro: Other: Alert and oriented, no neurological deficits noted DS: Data Data Completed and Pending Pending studies at discharge: Pending at discharge 10/21/24 12:35 Surgical [PTH] Routine Labs on day of discharge: Labs from last 24 hours 10/21/24 10/20/24 10/20/24 06:37 23:38 23:35 WBC 5.4 6.8 RBC 4.14 L 4.69 Hgb 12.7 14.6 Hct 38.0 41.4 MCV 91.8 88.3 MCH 30.7 31.1 MCHC 33.4 35.3 RDW 13.0 12.8 Plt Count 204 224 MPV 9.7 9.5 Immature Gran % (Auto) 0.2 0.1 Neut % (Auto) 44.1 L 45.8 Lymph % (Auto) 42.1 39.7 King % (Auto) 10.2 H 11.3 H Eos % (Auto) 2.8 2.5 Baso % (Auto) 0.6 0.6 Lymph # (Auto) 2.28 2.68 King # (Auto) 0.6 0.8 H Eos # (Auto) 0.2 0.2 Baso # (Auto) 0.0 0.0 Abs Immat Gran (auto) 0.01 0.01 Absolute Neuts (auto) 2.4 3.1 Absolute Nucleated RBC 0.000 0.000 Nucleated RBC % 0.0 0.0 Sodium 140 140 Potassium 3.9 3.8 Chloride 107 107 Carbon Dioxide 24 21 L Anion Gap 9 12 BUN 15 16 Creatinine 0.61 L 0.63 L Estim Creat Clear Calc 105 98 Estimated GFR > 60 > 60 Glucose 85 101 Calcium 8.5 9.5 Magnesium 1.7 1.8 Total Bilirubin 0.2 0.3 AST 30 33 ALT 34 39 H Alkaline Phosphatase 75 82 Total Protein 7.0 7.0 Albumin 3.8 4.4 Lipase 112 TSH 1.570 Urine Color Yellow Urine Appearance Clear Urine pH 5.5 Ur Specific [place] 1.036 H Urine Protein Trace Urine Glucose (UA) Negative Urine Ketones Trace H Ur Blood (Man) 1+ H Urine Nitrate Negative Urine Bilirubin Negative Urine Urobilinogen 1.0 Leukocyte Esterase Rfl Negative Urine RBC 11-20 H Urine WBC 6-10 H Ur Squamous Epith Cells Few Urine Bacteria Rare Urine Casts 0-2 POC Urine HCG, Qual Negative Imaging Radiologist's impression: Non-contrast CT scan of the Abdomen and Pelvis Clinical indication: Right flank pain Technique: 2.5 mm axial scans were obtained through the abdomen and pelvis without intravenous or oral contrast. Dose reduction technique was used on this scan by utilizing automated exposure control and iterative reconstruction technique. The dose-length product (DLP) was 693.44 mGy-cm. COMPARISON: 10/17/2024 Findings: Images through the lung bases reveal no abnormalities. Small bilateral nonobstructing renal stones are present, largest measuring 3 mm in the left kidney. There is a 3 mm stone in the proximal right ureter (axial image 78). No distinct hydronephrosis. The liver, spleen, pancreas, and adrenals appear normal. Cholecystectomy clips are present. There is no aortic aneurysm. There is no evidence of bowel obstruction. Images through the pelvis were performed. There is no evidence of ascites or lymphadenopathy. Urinary bladder unremarkable. Status post hysterectomy. Impression: 3 mm proximal right ureteral stone, without hydronephrosis. Additional small bilateral nonobstructing renal stones, as above INTRAOPERATIVE FLUOROSCOPY: CLINICAL HISTORY: 44 years old Female; CYSTO RIGHT SPECIAL PROCEDURE COMMENTS: Limited intraoperative fluoroscopy of the pelvis was performed. CUMULATIVE DOSE: 8.9 mGy FLUOROSCOPY TIME: 23.5 seconds FINDINGS/IMPRESSION: Please refer to operative note for further details. Discharge Plan Discharge Attending physician on discharge: Pamela Tao Consulting providers: Kaylee De Jesus; Maximino Gonzalez Discharging Clinician: Maximino Gonzalez Anticipated Discharge Date/Time: 10/21/24 14:37 Patient Disposition: Home, Self-Care Activity: other - see discharge instructions Diet: other - see discharge instructions Discharge Instructions: 1) Activity: no driving or important decisions x24 hours. 2) Diet: resume your normal, pre-admission diet. 3) Follow-up: 2-3 weeks / call for appointment ([phone]). Patient Instructions: Antibiotic Form Patient Language: Yi Stand Alone Forms: General Discharge Information Follow-up/Referrals: Maximino Gonzalez MD [Physician] - Discharge Medications: Continued multivitamin Tablet 1 tablet PO DAILY pregabalin 150 mg capsule 150 mg PO Q8H PRN (Reason: pain) ondansetron 4 mg tablet,disintegrating 4 mg PO Q8H Qty: 14 0RF hydrochlorothiazide 25 mg tablet 25 mg PO DAILY nebivolol [Bystolic] 10 mg tablet 10 mg PO DAILY cephalexin 500 mg capsule 500 mg PO Q12H Qty: 10 0RF hydrocodone-acetaminophen 5-325 mg tablet 1 tablet PO Q8H PRN (Reason: pain) Qty: 10 0RF tamsulosin 0.4 mg capsule 0.4 mg PO DAILY Qty: 14 0RF losartan 50 mg tablet 50 mg PO BID Qty: 180 0RF Date of admission: 10/21/24 03:18 Primary Care Provider: Lucas Carter Admitting Provider: Pamela Tao Attending physician on admission: Pamela Tao Condition: Stable Quality VTE Prophylaxis VTE prophylaxis: mechanical ordered -Patient's previous records reviewed on admission -ER notes reviewed in detail on admission -discussed all findings and current treatment plan with patient/Family/POA -Consultations reviewed for recommendations -Patient's disposition for safe discharge discussed with medical case manager Dictation performed by [email or web address] direct speech recognition software, therefore envelope adjuster variants and typographical errors may occur. Hospitalist MIPS Heart Failure (Exclusion) Patient has history of Heart Transplant or Left Ventricular Assistive Device?: No IF YES, STOP HERE Heart Failure (Qualifier) Patient has current or prior documentation of LVEF less than or equal to 40%, or mod/servere depressed LVSF?: No IF NO, STOP HERE
--- NOTE | 2024-10-21 16:33 | PC.NURSE ---
Bp still elevated 210/132, Claudia De Jesus DYE RANGE OPERATOR CLOTH notified new orders received.
--- NOTE | 2024-10-21 18:20 | PC.NURSE ---
Bp 158/108, Vika De Jesus ADVANCED DEVELOPER notified ok to discharge
== END 2024-10-21 19:12 | disposition home or self-care (01) ==
LOC: ANHED 10-21 03:00 → ANH3MEDSUR 10-21 07:06
PROVIDERS: Nurse Practitioner Acute Care; Urology; Admitting Provider Hospitalist; Emergency Provider Emergency Medicine; PCP Internal Medicine; Visit Provider Hospitalist
PROC: (CPT 52352; principal; 2024-10-21 15:30)
DX: N20.1 Calculus of ureter (principal); N20.0 Calculus of kidney; I10 Essential (primary) hypertension; F17.210 Nicotine dependence, cigarettes, uncomplicated; K21.9 Gastro-esophageal reflux disease without esophagitis; G47.53 Recurrent isolated sleep paralysis; F32.A Depression, unspecified; E66.9 Obesity, unspecified; Z68.34 Body mass index [BMI] 34.0-34.9, adult; Z79.899 Other long term (current) 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; Z98.51 Tubal ligation status; Z90.710 Acquired absence of both cervix and uterus; Z90.49 Acquired absence of other specified parts of digestive tract
CPT/HCPCS: 52352; 36415; 51600; 74018; 74176; 74430; 80053; 81001; 81025; 82365; 83690; 83735; 84443; 85025; 87086; 88300; 96361; 96374; 96375; 96376; 99285; A9270; C1769; G0378; G0379; J0690; J1100; J1171; J2250; J2270; J2405; J2704; J3010; J7030; J7120; Q9967

== ENCOUNTER 2024-10-24 23:35 | Emergency (ER) | payer MEDICAID, SELFPAY ==
--- NOTE | ~2024-10-24 | CT_ITS ---
CT abdomen pelvis wo con Ordering provider: Deirdre Oates MD History: 44 years Female with . kidney stone . Comparison: None. Technique: CT abdomen and pelvis without IV and without oral contrast. Automated exposure control and iterative reconstruction technique were employed. The dose-length product was 267.25 mGy-cm. Findings: VISUALIZED LOWER CHEST: Normal. UPPER ABDOMINAL ORGANS: Liver: Hepatomegaly. Liver measures 22 cm. Gallbladder: Status post cholecystectomy. Spleen: Normal. Stomach/duodenum: Normal. Pancreas: Normal. Adrenals: Normal. Kidneys: 2 mm Tiny stone in the left kidney lower pole. 4 mm stone in the left kidney upper pole is a lso noted. Tiny stone in the right kidney upper pole. Minimal fullness of the right renal pelvis. Calcifications seen adjacent to the right mid ureter which is most likely outside the ureter. PELVIC ORGANS: The bladder is underfilled. BOWEL AND MESENTERY: Colon: No evidence of diverticulitis. Normal appendix. Small Bowel: Normal. No obstruction. Peritoneum/mesentery: No free air or free fluid. No mesenteric lymphadenopathy. RETROPERITONEUM: Mild atheromatous disease of the abdominal aorta. No retroperitoneal lymphadenopat hy. MUSCULOSKELETAL: Superficial soft tissues: The superficial soft tissues are normal. Bones: Age appropriate degenerative changes of the spine. IMPRESSION: 1. Calcification seen near to the mid right ureter most likely outside the ureter. Minimal fullness of the right renal pelvis. Follow-up advised. 2. Bilateral kidney tiny stones. 3. Hepatomegaly. Reviewed, dictated and finalized at location A. IMPRESSION: 1. Calcification seen near to the mid right ureter most likely outside the ure ter. Minimal fullness of the right renal pelvis. Follow-up advised. 2. Bilateral kidney tiny stones. 3. Hepatomegaly.
[2024-10-24 23:37] VITALS: BP 179/128; PULSE 96; RESP 16; TEMP 36.1; O2SAT 100
--- OUTSIDE RECORDS SUMMARY | 2024-10-24 23:37 | XMS_ITS | Referral Summary ---
Author Organization [facility] Address [address] [address] Care Team Providers Care Economic Development Director Name Role Phone Damian Sadler MD Primary Care Provider [phone] Source Comments [facility],non-owned Affiliates and Associated Physician Practices is amultiple site organization consisting of ambulatory clinics and hospital sitesin [place], [place], [place] and [place]. This disclosure is being madepursuant to the Care Everywhere program and may not contain all information available regarding this patient. Last updated 18.[facility] Allergies Active Allergy Reactions Criticality Noted Date [...] Resulting Agency Comment Lab Testing performed at: [facility] [address] [id number] Nancy Cotto MD LAB - CHEMISTRY [facility] INSURANCE BILL [address] [place] [address] * (ABNORMAL) COMPREHENSIVE METABOLIC PANEL (02/03/2024 1:03 AM CDT) BUN 9 7 - 26 mg/dL 02/03/2024 1:45 AM [facility] Creatinine 0.64 0.56 - 0.96 mg/dL 02/03/2024 1:45 AM [facility] Sodium 139 136 - 145 mmol/L 02/03/2024 1:45 AM [facility] Potassium 3.4(L) 3.5 - 4.5 mmol/L 02/03/2024 1:45 AM [facility] Chloride 107 98 - 107 mmol/L 02/03/2024 1:45 AM [facility] CO2 21(L) 22 - 29 mmol/L 02/03/2024 1:45 AM [facility] Glucose 78 70 - 115 mg/dL 02/03/2024 1:45 AM [facility] Calcium 9.9 8.4 - 10.2 mg/dL 02/03/2024 1:45 AM [facility] Protein Total 7.7 6.0 - 8.3 g/dL 02/03/2024 1:45 AM [facility] Albumin 4.4 3.4 - 5.0 g/dL 02/03/2024 1:45 AM [facility] Bilirubin Total 0.4 0.2 - 1.2 mg/dL 02/03/2024 1:45 AM [facility] Alkaline Phosphatase 81 40 - 150 U/L 02/03/2024 1:45 AM [facility] ALT 58(H) 5 - 55 U/L 02/03/2024 1:45 AM [facility] AST 33 5 - 34 U/L 02/03/2024 1:45 AM [facility] Anion Gap 11 6 - 16 02/03/2024 1:45 AM [facility] BUN/Creatinine Ratio 14 7 - 23 02/03/2024 1:45 AM [facility] Osmolality Calculated 286 275 - 295 mOsm/kg 02/03/2024 1:45 AM [facility] Albumin/Globulin Ratio 1.3 1.1 - 2.3 02/03/2024 1:45 AM [facility] eGFR by CKD-EPI >90 >=90 mL/min/1.7 3 m2 02/03/2024 1:45 AM [facility] Blood BLOOD SPECIMEN / Unknown Venipuncture / Unknown 02/03/2024 1:03 AM CDT 02/03/2024 1:17 AM [facility] Kaylee Reyes MD LAB - CHEMISTRY [facility] Organization Address City/State/ZIP Co de Phone Number [facility] [address] [place] [address], [facility] [phone] from Last 3 Months or Most Recently Relevant to Health Maintenance Care Teams Economic Development Director Relationship Specialty Start Date End Date Damian Sadler MD PCP - General Internal Medicine 07/04/16
--- OUTSIDE RECORDS SUMMARY | 2024-10-24 23:37 | XMS_ITS | CONTINUITY OF CARE DOCUMENT ---
Author Name [email or web address] Address Unknown Organization [facility] Address [address] [place] [address] Phone [phone] Care Team Providers Care Practical Nursing Instructor Name Role Phone William CURIEL, Herlinda Unavailable SHAWNEE CURIEL, NABIL Schmidt Unavailable INSURANCE PROVIDERS Payer name Policy type / Coverage type Bj red constitution party ID [employer] Medicaid [id number] [facility] [id number]
--- OUTSIDE RECORDS SUMMARY | 2024-10-24 23:37 | XMS_ITS | Patient Health Summary ---
Author Organization [facility] Address [address] [place] [address] Care Team Providers Care Route Sales Specialist Name Role Phone Damian Sadler MD Primary Care Provider [phone] Note from [facility],non-owned Affiliates and Associated Physician Practices is amultiple site organization consisting of ambulatory clinics and hospital sitesin [place], [place], [place] and [place]. This disclosure is being madepursuant to the Care Everywhere program and may not contain all information available regarding this patient. 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 [...] M54.2: Cervicalgia R53.83: Other fatigue Z79.899: Other snf (current) 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 Additional History: COMPARISON: None. [...] M54.2: Cervicalgia. R53.83: Other fatigue. Z79.899: Other snf (current) 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. Additional History: COMPARISON: None. [...] M54.2: Cervicalgia. R53.83: Other fatigue. 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 Additional History: COMPARISON: None. [...] M54.2: Cervicalgia. R53.83: Other fatigue. 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 Additional History: COMPARISON: None. [...] M54.2: Cervicalgia. R53.83: Other fatigue. 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 Additional History: COMPARISON: None. [...] Resulting Agency Comment Lab Testing performed at: [facility] [address] [phone] Nancy Cotto MD LAB - CHEMISTRY TOBY BILLY [facility] Organization Address City/State/ZIP Co de Phone Number [facility] INSURANCE BILL [address] [place] [address] * HEPATITIS SCREEN ACUTE ([facility]) (02/20/2024 10:47 [...] Resulting Agency Comment Lab Testing performed at: [facility] [address] [id number] Nancy Cotto MD LAB - CHEMISTRY TOBY BILLY [facility] INSURANCE BILL [address] [place] [address] * RHEUMATOID ARTHRITIS 14-3-3 ETA (02/20/2024 10:47 AM CDT) 14.3.3 eta Protein <0.20 ng/mL [facility] INSURANCE BILL Comment: Reference Range: < 0.20 Comments: 14-3-3 eta protein is a joint-derived, proinflammatory environmental services floor tech that is implicated in the joint [...] et al. 14-3-3 eta is a novel environmental services floor tech associated with the pathogenesis of rheumatoid arthritis and joint damage. Arthritis Res Ther 2014;16:R99. This test was developed and its performance characteristics determined by [employer]. It has not been cleared or approved by the Food and Drug Administration. Blood BLOOD SPECIMEN / Unknown 02/20/2024 10:47 AM CDT 02/20/2024 Narrative Resulting Agency Comment Lab Testing performed at: [email or web address] [address] [place] [address] [phone] Nancy Cotto MD LAB - CHEMISTRY ORDE RABLES Performing Organization Address [facility]/ZIP Co de Phone Number [facility] INSURANCE BILL [address] [place] [address] * INTERPRETATION REFLEXED (02/20/2024 10:47 AM CDT) Interpretation [facility] INSURANCE BILL Comment: Not infected with HCV unless early or acute infection is suspected (which may be delayed in an immunocompromised individual), or other evidence exists to indicate HCV infection. 02/20/2024 10:4 7 AM CDT 02/20/2024 Narrative Resulting Agency Comment Lab Testing performed at: [facility] [address] [phone] Nancy Cotto MD LAB - SEROLOGY ORDER ROLANDA Performing Organization Address City/[facility] Co de Phone Number [facility] INSURANCE BILL [address] [place] [address] * (ABNORMAL) IMMUNOFIXATION BLOOD (02/20/2024 10:47 AM [...] Resulting Agency Comment Lab Testing performed at: [facility] [address] [id number] Nancy Cotto MD LAB - CHEMISTRY TOBY BILLY [facility] INSURANCE BILL [address] [place] [address] * RHEUMATOID FACTOR BLOOD QUANTITATIVE (02/20/2024 10:47 AM CDT) Rheumatoid Factor <10.0 <14.0 IU/mL [facility] INSURANCE BILL Blood BLOOD SPECIMEN / Unknown 02/20/2024 10:47 AM CDT 02/20/2024 Narrative Resulting Agency Comment Lab Testing performed at: [address] [id number] Nancy Cotto MD LAB - CHEMISTRY TOBY BILLY Performing Organization Address [facility]/ZIP Co de Phone Number [facility] INSURANCE BILL [address] [place] [address] * C-REACTIVE PROTEIN (02/20/2024 10:47 AM CDT) Only the most recent of2 resultswithin the time period is included. C-Reactive Protein <1 0 - 10 mg/L [facility] INSURANCE BILL Blood BLOOD SPECIMEN / Unknown 02/20/2024 10:47 AM CDT 02/20/2024 Narrative Resulting Agency Comment Lab Testing performed at: [facility] [address] [phone] Nancy Cotto MD LAB - CHEMISTRY TOBY BILLY [facility] INSURANCE BILL [address] [place] [address] * HLA TYPING B27 (02/20/2024 10:47 AM CDT) HLA-B27 Negative [facility] INSURANCE BILL Comment: HLA-B*27 Negative B27 allele interpretation for all loci based on IMGT/HLA database version 3.51.0 This test was developed and its performance characteristics determined by [employer]. It has not been cleared or approved by the Food and Drug Administration. HLA Lab CLIA ID Number [id number] This test was performed using Polymerase Chain Reaction (PCR) and Sequence Specific Oligonucleotide Probes (SSOP) technique. Sequence Based Typing (SBT) may be used as a supplemental method when necessary. If you have questions, please call [facility] customer service at or email at [email or web address]. Blood BLOOD SPECIMEN / Unknown 02/20/2024 10:47 AM CDT 02/20/2024 Narrative Resulting Agency Comment Lab Testing performed at: [place] [address] [facility] [id number] Nancy Cotto MD LAB - CHEMISTRY TOBY BILLY Performing Organization Address City/[facility]/ZIP Co de Phone Number [facility] [address] [place] [address] * ANGIOTENSIN CONVERTING ENZYME BLOOD (02/20/2024 10:47 AM CDT) Angiotensin-Con verting Enzyme 77 14 - 82 U/L [facility] Blood BLOOD SPECIMEN / Unknown 02/20/2024 10:47 AM CDT 02/20/2024 Narrative Resulting Agency Comment Lab Testing performed at: [place] [id number] [facility] [id number] Nancy Cotto MD LAB - CHEMISTRY TOBY BILLY Performing Organization Address City/[facility]/ZIP Co de Phone Number [facility] INSURANCE BILL [address] [place] [address] * ALDOLASE (02/20/2024 10:47 AM CDT) Aldolase 6.9 3.3 - 10.3 U/L [facility] INSURANCE BILL Blood BLOOD SPECIMEN / Unknown 02/20/2024 10:47 AM CDT 02/20/2024 Narrative Resulting Agency Comment Lab Testing performed at: [place] [id number] [facility] [phone] Nancy Cotto MD LAB - CHEMISTRY TOBY BILLY Performing Organization Address [facility]/ZIP Co de Phone Number [facility] INSURANCE BILL [address] [place] [address] * CYCLIC CITRULLINATED PEPTIDE(CCP) AB IGG (02/20/2024 10:47 AM CDT) CCP Antibodies IgG/IgA <20 <20 Units [facility] INSURANCE BILL Comment: Negative: <20 Weak Positive: 20-39 Moderate Positive: 40-59 Strong Positive: >59 Blood BLOOD SPECIMEN / Unknown 02/20/2024 10:47 AM CDT 02/20/2024 Narrative Resulting Agency Comment Lab Testing performed at: [email or web address] [address] [place] [address] [phone] Nancy Cotto MD LAB - CHEMISTRY TOBY BILLY Performing Organization Address [facility] Co de Phone Number [facility] INSURANCE BILL [address] [place] [address] * ERYTHROCYTE SEDIMENTATION RATE (02/20/2024 10:47 AM CDT) Only the most recent of2 resultswithin the time period is included. Erythrocyte Sedimentation Rate Westergren 10 0 - 32 mm/hr [facility] INSURANCE BILL Blood BLOOD SPECIMEN / Unknown 02/20/2024 10:47 AM CDT 02/20/2024 Narrative Resulting Agency Comment Lab Testing performed at: [facility] [address] [id number] Nancy Cotto MD LAB - HEMATOLOGY ORD ERABLES Performing Organization Address City/[facility]/ZIP Co de Phone Number [facility] INSURANCE BILL [address] [place] [address] * COMPLEMENT C4 (02/20/2024 10:47 AM CDT) Complement C4 26 14 - 44 mg/dL [facility] INSURANCE BILL Blood BLOOD SPECIMEN / Unknown 02/20/2024 10:47 AM CDT 02/20/2024 Narrative Resulting Agency Comment Lab Testing performed at: [email or web address] [address] [facility] [phone] Nancy Cotto MD LAB - SEROLOGY ORDER ROLANDA [facility] INSURANCE BILL [address] [place] [address] * CK BLOOD (02/20/2024 10:47 AM CDT) Pathologist [facility] CK 73 32 - 182 U/L [facility] INSURANCE BILL Blood BLOOD SPECIMEN / Unknown 02/20/2024 10:47 AM CDT 02/20/2024 Narrative Resulting Agency Comment Lab Testing performed at: [facility] [place] [address] [id number] Nancy Cotto MD LAB - CHEMISTRY ORDE RABLES Performing Organization Address City/[facility]/ZIP Co de Phone Number [facility] INSURANCE BILL [address] [place] [address] * PROTEIN ELECTROPHORESIS BLOOD (02/20/2024 10:47 AM CDT) Only the most recent of2 resultswithin the time period is included. Pathologist [facility] Protein Total 6.7 6.0 - 8.5 g/dL [facility] INSURANCE BILL Albumin 3.8 2.9 - 4.4 g/dL [facility] INSURANCE BILL Alpha-1 Globulin 0.2 0.0 - 0.4 g/dL [facility] INSURANCE BILL Yvvpp-9-Aucblisw 0.6 0.4 - 1.0 g/dL [facility] INSURANCE [...] scan will follow via computer, mail, or discharge specialist delivery. P E Interpretation, S [facility] INSURANCE BILL Comment: The SPE pattern appears unremarkable. Evidence of monoclonal protein is not apparent. Blood BLOOD SPECIMEN / Unknown 02/20/2024 10:47 AM CDT 02/20/2024 Narrative Resulting Agency Comment Lab Testing performed at: [facility] [place] [address] [id number] Nancy Cotto MD LAB - CHEMISTRY TOBY BILLY Performing Organization Address [facility]/ZIP Co de Phone Number [facility] INSURANCE BILL [address] [place] [address] * (ABNORMAL) COMPLEMENT C3 (02/20/2024 10:47 AM CDT) Complement C3 187(H) 82 - 167 mg/dL [facility] INSURANCE BILL Blood BLOOD SPECIMEN / Unknown 02/20/2024 10:47 AM CDT 02/20/2024 Narrative Resulting Agency Comment Lab Testing performed at: [email or web address] [address] [facility] [id number] Nancy Cotto MD LAB - CHEMISTRY TOBY BILLY Performing Organization Address [facility]/ZIP Co de Phone Number [facility] INSURANCE BILL [address] [place] [address] * MERLIN PANEL COMPREHENSIVE (02/20/2024 10:46 AM CDT) Anti-dsDNA Quantitative <1 0 - 9 IU/mL [facility] INSURANCE BILL Comment: Negative <5 Equivocal 5 - 9 Positive >9 JAVA SYBASE DEVELOPER Antibody 0.2 0.0 - 0.9 AI [facility] [...] Sm (anti-Tellez) SLE 15 - 30% --------- JAVA SYBASE DEVELOPER Mixed Connective Tissue Disease 95% (U1 nRNP, SLE 30 - 50% anti-ribonucleoprotein) Polymyositis and/or Dermatomyositis 20% --------- Scl-70 (antiDNA Scleroderma (diffuse) 20 - 35% topoisomerase) Crest 13% --------- Lorna-1 Polymyositis and/or Dermatomyositis 20 - 40% --------- Centromere B Scleroderma - Crest variant 80% Blood BLOOD SPECIMEN / Unknown 02/20/2024 10:46 AM CDT 02/20/2024 Narrative Resulting Agency Comment Lab Testing performed at: [facility] [address] [phone] Nancy Cotto MD LAB - SEROLOGY ORDER ROLANDA [facility] INSURANCE BILL [address] [place] [address] * ANCA VASCULITIS PANEL (02/20/2024 10:46 AM [...] up testing of positive sera with both WA-3 and MPO-ANCA enzyme immunoassays. As many as [...] Resulting Agency Comment Lab Testing performed at: [address] [phone] Nancy Cotto MD LAB - CHEMISTRY TOBY BILLY [facility] [address] [place] [address] * THIOPURINE METHYLTRANSFERASE (02/20/2024 10:46 AM CDT) TPMT Activity 25.6 Units/mL RBC [facility] Comment: Reference Range: Normal: 15.1 - 26.4 Heterozygous for low TPMT variant: 6.3 - 15.0 Homozygous for low TPMT variant: <6.3 Interpretation [facility] INSURANCE BILL Comment: The above results can be interpreted as Normal for red blood cell Thiopurine Methyltransferase activity. For patients having an intrinsic low level of TPMT, recent RBC transfusion can variably increase their assayed enzymatic activity depending on the amount and circulating half-life of the transfused red blood cells. This test was developed and its performance characteristics determined by [facility]. It has not been cleared or approved by the Food and Drug Administration. This case has been reviewed, approved, interpreted and electronically signed by Kodi Weldon, PhD, [facility]. Methodology [facility] INS[facility] Comment: Enzymatic Endpoint/Liquid Chromatography - Tandem Mass Spectrometry (LC-MS/MS) Blood BLOOD SPECIMEN / Unknown 02/20/2024 10:46 AM CDT 02/20/2024 Narrative Resulting Agency Comment Lab Testing performed at: [email or web address] [facility] [id number] Nancy Cotto MD LAB - CHEMISTRY TOBY BILLY Performing Organization Address City/[facility]/ZIP Co de Phone Number [facility] INS[facility] BILL [address] [place] [address] * IRON + TIBC PANEL (02/20/2024 10:46 [...] Resulting Agency Comment Lab Testing performed at: [facility] [place] [address] [id number] Nancy Cotto MD LAB - CHEMISTRY TOBY BILLY Performing Organization Address City/[facility]/ZIP Co de Phone Number [facility] INSURANCE BILL [address] [place] [address] * CBC W AUTO DIFFERENTIAL (02/03/2024 1:03 AM CDT) Only the most recent of2 resultswithin the time period is included. WBC 7.8 4.0 - 10.7 x10E9/L 02/03/2024 1:27 AM CDT [facility] RBC Count 5.03 3.90 - 5.20 x10E12/L 02/03/2024 1:27 AM CDT [facility] Hemoglobin 15.3 11.9 - 15.8 g/dL 02/03/2024 1:27 AM CDT [facility] Hematocrit 42.7 34.8 - 46.1 % 02/03/2024 1:27 AM CDT [facility] MCV 84.9 80.0 - 98.0 fL 02/03/2024 1:27 AM [facility] MCH 30.4 26.7 - 33.6 pg 02/03/2024 1:27 AM [facility] MCHC 35.8 31.7 - 36.3 g/dL 02/03/2024 1:27 AM [facility] RDW-CV 11.7 11.3 - 14.8 % 02/03/2024 1:27 AM [facility] Platelet Count 273 150 - 420 x10E9/L 02/03/2024 1:27 AM [facility] MPV 9.4 7.8 - 11.4 fL 02/03/2024 1:27 AM [facility] Neutrophil % 61.8 41.0 - 74.0 % 02/03/2024 1:27 AM [facility] Lymphocyte % 28.0 17.0 - 47.0 % 02/03/2024 1:27 AM [facility] Monocyte % 7.7 3.0 - 11.0 % 02/03/2024 1:27 AM [facility] Eosinophil % 2.0 0.0 - 7.0 % 02/03/2024 1:27 AM [facility] Basophil % 0.4 0.0 - 1.6 % 02/03/2024 1:27 AM [facility] Immature Granulocytes % 0.1 0.0 - 1.0 % 02/03/2024 1:27 AM [facility] Neutrophil Absolute 4.84 1.60 - 7.50 x10E9/L 02/03/2024 1:27 AM [facility] Lymphocyte Absolute 2.19 1.00 - 4.40 x10E9/L 02/03/2024 1:27 AM [facility] Monocyte Absolute 0.60 0.15 - 1.00 x10E9/L 02/03/2024 1:27 AM [facility] Eosinophil Absolute 0.16 0.00 - 0.60 x10E9/L 02/03/2024 1:27 AM [facility] Basophil Absolute 0.03 0.00 - 0.13 x10E9/L 02/03/2024 1:27 AM [facility] Blood BLOOD SPECIMEN / Unknown Venipuncture / Unknown 02/03/2024 1:03 AM CDT 02/03/2024 1:17 AM CDT Kaylee Reyes MD LAB - HEMATOLOGY ORD ERABLES [facility] [address] [place] [address], [facility] [phone] * (ABNORMAL) COMPREHENSIVE METABOLIC PANEL (02/03/2024 1:03 AM CDT) Only the most recent of2 resultswithin the time period is included. BUN 9 7 - 26 mg/dL 02/03/2024 1:45 AM [facility] Creatinine 0.64 0.56 - 0.96 mg/dL 02/03/2024 1:45 AM [facility] Sodium 139 136 - 145 mmol/L 02/03/2024 1:45 AM [facility] Potassium 3.4(L) 3.5 - 4.5 mmol/L 02/03/2024 1:45 AM [facility] Chloride 107 98 - 107 mmol/L 02/03/2024 1:45 AM [facility] CO2 21(L) 22 - 29 mmol/L 02/03/2024 1:45 AM [facility] Glucose 78 70 - 115 mg/dL 02/03/2024 1:45 AM [facility] Calcium 9.9 8.4 - 10.2 mg/dL 02/03/2024 1:45 AM [facility] Protein Total 7.7 6.0 - 8.3 g/dL 02/03/2024 1:45 AM [facility] Albumin 4.4 3.4 - 5.0 g/dL 02/03/2024 1:45 AM [facility] Bilirubin Total 0.4 0.2 - 1.2 mg/dL 02/03/2024 1:45 AM [facility] Alkaline Phosphatase 81 40 - 150 U/L 02/03/2024 1:45 AM [facility] ALT 58(H) 5 - 55 U/L 02/03/2024 1:45 AM [facility] AST 33 5 - 34 U/L 02/03/2024 1:45 AM [facility] Anion Gap 11 6 - 16 02/03/2024 1:45 AM [facility] BUN/Creatinine Ratio 14 7 - 23 02/03/2024 1:45 AM [facility] Osmolality Calculated 286 275 - 295 mOsm/kg 02/03/2024 1:45 AM [facility] Albumin/Globulin Ratio 1.3 1.1 - 2.3 02/03/2024 1:45 AM [facility] eGFR by CKD-EPI >90 >=90 mL/min/1.7 3 m2 02/03/2024 1:45 AM [facility] Blood BLOOD SPECIMEN / Unknown Venipuncture / Unknown 02/03/2024 1:03 AM CDT 02/03/2024 1:[address] [facility] Kaylee Reyes MD LAB - CHEMISTRY ORDRei [facility] Organization Address City/State/ZIP Co de Phone Number [facility] [address] [place] [address], [facility] [phone] * (ABNORMAL) URINALYSIS W/MICROSCOPIC NO CULTURE (02/03/2024 12:57 AM T) Color UA Yellow Straw, Yellow 02/03/2024 1:40 AM [facility] Clarity UA t Cloudy(A) Clear 02/03/2024 1:40 AM [facility] Specific Katy UA 1.020 1.005 - 1.030 02/03/2024 1:40 AM [facility] pH UA 5.0 5.0 - 8.0 pH 02/03/2024 1:40 AM [facility] Protein UA Negative Negative 02/03/2024 1:40 AM [facility] Glucose UA Negative Negative 02/03/2024 1:40 AM [facility] Ketone UA Negative Negative 02/03/2024 1:40 AM [facility] Bilirubin UA Negative Negative 02/03/2024 1:40 AM CDT [facility] Blood UA Negative Negative 02/03/2024 1:40 AM CDT [facility] Nitrite UA Negative Negative 02/03/2024 1:40 AM CDT [facility] Leukocyte Esterase Negative Negative 02/03/2024 1:40 AM CDT [facility] Urobilinogen UA Negative Negative mg/dL 02/03/2024 1:40 AM CDT [facility] RBC UA 6-10(A) None Seen, 0-2, 3-5 /HPF 02/03/2024 1:40 AM CDT [facility] WBC UA 0-5 None Seen, 0-5 /HPF 02/03/2024 1:40 AM T [facility] Squamous Epithelial Cells UA 6-10(A) None Seen, 0-2, 3-5 /HPF 02/03/2024 1:40 AM CDT [facility] Mucus UA 2+ /LPF 02/03/2024 1:40 AM CDT [facility] Urine URINE SPECIMEN OBTAINED BY CLEAN CATCH PROCEDURE / Unknown Collection / Unknown 02/03/2024 12:57 AM CDT 02/03/2024 1:13 AM CDT Narrative [facility] - 02/03/2024 1:40 AM CDT Kaylee Reyes MD LAB - URINALYSIS ORD ERABLES [facility] [address] [place] [address], [facility] [phone] * CT RENAL STONE (02/03/2024 12:19 AM [...] Dictated by Samy Johnson MD, PhD (radiology interventional physician). I, Haylee Lopez MD have personally reviewed and interpreted this examination/study. > Interpreting Provider: Haylee Lopez MD on 02/03/2024 10:15 AM Narrative 02/03/2024 10:15 AM CDT PROCEDURE: CT RENAL STONE, DATE/TIME OF EXAM: 02/03/2024 12:19 AM, LOCATION [facility] INDICATION: R10.9: Flank pain [...] DATE/TIME OF EXAM: 02/03/2024 12:19 AM, LOCATION [facility] INDICATION: R10.9: Flank pain [...] Dictated by Samy Johnson MD, PhD (radiology interventional physician). I, Haylee Lopez MD have personally reviewed and interpreted this examination/study. > Interpreting Provider: Haylee Lopez MD on 410:15 AM Kaylee Reyes MD CT ORDERABLES * HCG URINE QUAL POCT NOTIFICATION (06/04/2019 1:02 PM CDT) Comment Notification Label Only - See Separate Report 06/04/2019 1:02 PM CDT [facility] Urine URINE / Unknown 11:47 AM CDT Tarun Garcia MD LAB - URINALYSIS OR DERABLES [facility] [address] [place] [address] * CT ABDOMEN AND PELVIS WITH IV [...] on 06/04/2019 at 1:11 PM Luna Durant SOLAR ENERGY ADVISOR-COLLET MAKING MACHINE OPERATOR CT ORDERABLES * URINALYSIS REFLEX MICROSCOPIC REFLEX CULTURE (06/04/2019 12:07 PM CDT) Color UA Straw Straw, Yellow 06/04/2019 12:14 PM CDT [facility] Clarity UA Clear Clear 06/04/2019 12:14 PM CDT [facility] Glucose UA Negative Negative 06/04/2019 12:14 PM [facility] Bilirubin UA Negative Negative 06/04/2019 12:14 PM [facility] Ketone UA Negative Negative 06/04/2019 12:14 PM [facility] Specific Katy UA 1.006 1.005 - 1.030 06/04/2019 12:14 PM CDT [facility] Blood UA Negative Negative 06/04/2019 12:14 PM [facility] pH UA 7.0 5.0 - 8.0 pH 06/04/2019 12:14 PM [facility] Protein UA Negative Negative 06/04/2019 12:14 PM CDT [facility] Urobilinogen UA Negative Negative mg/dL 06/04/2019 12:14 PM CDT [facility] Nitrite UA Negative Negative 06/04/2019 12:14 PM CDT [facility] Leukocyte UA Negative Negative 06/04/2019 12:14 PM [facility] Urine Microscopy Urine microscopy not indicated 06/04/2019 12:14 PM [facility] Reflex Status Culture not indicated 06/04/2019 12:14 PM CDT [facility] Urine URINE SPECIMEN OBTAINED BY CLEAN CATCH PROCEDURE / Unknown Collection / Unknown 06/04/2019 12:07 PM CDT 06/04/2019 12:09 PM CDT Narrative [facility] - 06/04/2019 12:14 PM CDT Tarun Garcia MD LAB - URINALYSIS OR DERABLES Performing Organization Address City/[facility]/ZIP Co de Phone Number [facility] [address] [place] [address] * HCG URINE QUALITATIVE - POCT (IP) INTERFACED (06/04/2019 12:06 PM CDT) HCG Qual Urine Negative Negative 06/04/2019 12:12 PM CDT [facility] Urine URINE / Unknown 06/04/2019 1 2:06 PM CDT 06/04/2019 12:12 PM CDT Provider Unknown LAB - POINT OF CARE ORDERABLES Performing Organization Address City/[facility]/ZIP Co de Phone Number [facility] [address] [place] [address] * LIPASE BLOOD (06/04/2019 11:56 AM CDT) Lipase 29 8 - 78 U/L 06/04/2019 12:59 PM CDT [facility] Blood BLOOD SPECIMEN / Unknown Venipuncture / Unknown 06/04/2019 11:56 AM CDT 06/04/2019 12:06 PM CDT Luna Durant SOLAR ENERGY ADVISOR-COLLET MAKING MACHINE OPERATOR LAB - CHEMISTRY O RDERABLES [facility] [address] [place] [address] * RPR (08/27/2016 3:46 PM VOLCANOLOGY PROFESSOR) RPR Non Reactive Non Reactive [facility] ACCOUNT BILL Blood BLOOD SPECIMEN / Unknown 08/27/2016 3:46 PM VOLCANOLOGY PROFESSOR 08/27/2016 Narrative Resulting Agency Comment [facility] [address] [phone] Albert Hutchinson MD LAB - CHEMISTRY TOBY BILLY Performing Organization Address City/[facility]/ZIP Co de Phone Number [facility] ACCOUNT BILL [address] [place] [address] * VITAMIN B6 (08/27/2016 3:46 PM VOLCANOLOGY PROFESSOR) Vitamin B6 14.9 2.0 - 32.8 ug/L [facility] ACCOUNT BILL Blood BLOOD SPECIMEN / Unknown 08/27/2016 3:46 PM VOLCANOLOGY PROFESSOR 08/27/2016 Narrative Resulting Agency Comment [facility] [address] [phone] Albert Hutchinson MD LAB - CHEMISTRY TOBY BILLY Performing Organization Address [facility] Co de Phone Number [facility] ACCOUNT BILL [address] [place] [address] * VITAMIN B12 FOLATE PANEL (08/27/2016 3:46 PM VOLCANOLOGY PROFESSOR) Vitamin B12 879 211 - 911 pg/mL [facility] ACCOUNT BILL Folate 13.6 3.1 - 17.5 ng/mL [facility] ACCOUNT BILL Blood BLOOD SPECIMEN / Unknown 08/27/2016 3:46 PM VOLCANOLOGY PROFESSOR 08/27/2016 Narrative Resulting Agency Comment [facility] [address] [address] [phone] Albert Hutchinson MD LAB - CHEMISTRY TOBY BILLY Performing Organization Address City/[facility] Co de Phone Number [facility] ACCOUNT BILL [address] [place] [address] * (ABNORMAL) TSH (08/27/2016 3:46 PM VOLCANOLOGY PROFESSOR) TSH 0.280(L) 0.358 - 3.740 uIU/mL [facility] ACCOUNT BILL Blood BLOOD SPECIMEN / Unknown 08/27/2016 3:46 PM VOLCANOLOGY PROFESSOR 08/27/2016 Narrative Resulting Agency Comment [facility] [address] [address] [id number] Albert Hutchinson MD LAB - CHEMISTRY DARIARei WENCESLAO [facility] ACCOUNT [place] [place] [address] * IMAGING/RADIOLOGY/XRAY RESULTS ORDER (10/20/2009 6:02 AM VOLCANOLOGY PROFESSOR) Anatomical Region Laterality Modality Other Narrative 10/20/2009 6:02 AM VOLCANOLOGY PROFESSOR Ordered by an unspecified provider. Transcriptions Document, Scanned - 09/20/2009 12:00 AM VOLCANOLOGY PROFESSOR Scanned Document IMAGING * CHROMOSOME ANALYSIS AMNIO PANEL (08/31/2009 12:00 PM VOLCANOLOGY PROFESSOR) Chromosome Analysis Amniotic Fluid See Scanned Report [facility] Comment Amniotic Fluid [facility] AMNIOTIC FLUID SPECIMEN / Unknown 08/31/2009 12:00 PM VOLCANOLOGY PROFESSOR 08/31/2009 12:40 PM VOLCANOLOGY PROFESSOR Arvin Anderson MD LAB - PATHOLOGY/CYTO LOGY ORDERABLES [facility] [address] [place] [address] Care Teams Route Sales Specialist Relationship Specialty Start Date End Date Damian Sadler MD PCP - General Internal Medicine 07/04/16
--- OUTSIDE RECORDS SUMMARY | 2024-10-24 23:37 | XMS_ITS | Clinical Summary ---
Author Organization [facility] Address [address] [place] [address] Care Team Providers Care Sugar Chipper Machine Operator Name Role Phone Lucas Carter DO Primary Care Provider [phone] Allergies Active Allergy Reactions Criticality Noted Date Comments Hydralazine Headache,Vomiting Low 01/21/2024 Ketorolac Hives,Itching Medium 10/17/2017 Tramadol Hives,Urticaria Medium 08/27/2016 Medications omeprazole (PriLOSEC) 20 mg capsuleIndications :Treatment of Non-Bleeding Gastric Disorder Take 1 capsule (20 mg total) by mouth truck manager 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 Active MULTIVIT-MINERALS/ FERROUS FUM (MULTI VITAMIN ORAL)Indications:h ealth Take 1 tablet by mouth truck manager 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 Active ondansetron ODT (ZOFRAN-ODT) [...] 1 tablet (25 mg total) by mouth truck manager 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 Active nebivoloL (BYSTOLIC) 10 [...] Grandfather Beka Sr. Hearing loss Maternal Grandmother [place] Alcohol abuse Mother Lisae Arthritis Mother Melodye COPD Mother Melodye Depression Mother Melodye Hearing loss Mother Melodye Obesity Mother Melelizabethe Stroke Paternal Grandfather Dusty Obesity Sister Sarai Relation Name Status Comments Brother Dusty Father Israel Maternal Grandfather Beka Sr. Maternal Grandmother [place] Mother Gretchen Paternal Grandfather Dusty Sister Sarai Social History Tobacco Use Types Packs/Day Years Used Date Smoking Tobacco: Every Day Cigarettes 0.8 33 Started: 11/11/1991 Smokeless Tobacco: Never Tobacco Cessation:Ready [...] on file Legal Sex Female 9:06 PM EDGE CUTTER Gender Identity Female 10/01/2023 8:44 AM EDGE CUTTER Sexual Orientation Straight 10/01/2023 8: 44 AM EDGE CUTTER Obstetrics History Para Term AB IAB SAB [...] Comments Blood Pressure 125/82 06/29/2024 10:05 AM EDGE CUTTER Pulse 75 06/29/2024 10:05 AM EDGE CUTTER Temperature 36.2 C (97.2 F) 06/29/2024 9:28 AM EDGE CUTTER Respiratory Rate 15 06/29/2024 10:0 5 AM EDGE CUTTER Oxygen Saturation 96% 06/29/2024 10: 05 AM EDGE CUTTER Inhaled Oxygen Concentration - - Weight 83.4 kg (183 lb 12.8 oz) 06/29/2024 7:50 AM EDGE CUTTER Height 160 cm (5' 3 ) 06/29/2024 7:50 AM EDGE CUTTER Body Mass Index 32.56 06/29/2024 7:50 AM EDGE CUTTER Plan of Treatment Health Maintenance Due Date [...] on stairs Contact your local community or [facility] for information on exercise, fall prevention programs, or options for improving home safety. Medical Devices Implanted Type Area Restuarant Crew Worker Device Identifier Shelf Expiration Date Model / Serial / Lot Screw Left: Elbow Insurance IDPA [facility] CHOICE PLUS [facility] HMO/PPO Address: [address] [address] [place] [address] [facility] Member Subscriber Plan / Payer (Ef fective 2024-Present) Name:Renee Luke Relation to Subscriber:Self Name:Renee Luke Payer ID:[id number] (NAIC) Type:MEDICAID RISK OTHER Address: [place] [id number] Advance Directives For more information, please contact: [phone] * Full Code (Latest Code Status on File) Date Activated Date Inactivated Comments 08/15/2022 3:10 PM 08/18/2022 6:09 PM Care Teams Sugar Chipper Machine Operator Relationship Specialty Start Date End Date Lucas Carter DO PCP - General Internal Medicine 08/15/22
--- OUTSIDE RECORDS SUMMARY | 2024-10-24 23:37 | XMS_ITS | Clinical Summary ---
Author Organization [facility] Address [address] [place] [address] Care Team Providers Care Director Of Outpatient Services Name Role Phone Damian Sadler MD Primary Care Provider [phone] Source Comments [facility],non-owned Affiliates and Associated Physician Practices is amultiple site organization consisting of ambulatory clinics and hospital sitesin [place], [place], [place] and [place]. This disclosure is being madepursuant to the Care Everywhere program and may not contain all information available regarding this patient. Last updated 18.[facility] Allergies Active Allergy Reactions Criticality Noted Date [...] Resulting Agency Comment Lab Testing performed at: [address] [phone] Nancy Cotto MD LAB - CHEMISTRY TOBY BILLY [facility] INSURANCE BILL [address] [place] [address] * (ABNORMAL) COMPREHENSIVE METABOLIC PANEL (02/03/2024 1:03 AM [facility]) BUN 9 7 - 26 mg/dL 02/03/2024 [...] 1.1 - 2.3 02/03/2024 1:45 AM CDT [facility] eGFR by CKD-EPI >90 >=90 mL/min/1.7 3 m2 02/03/2024 1:45 AM T [facility] Blood BLOOD SPECIMEN / Unknown Venipuncture / Unknown 02/03/2024 1:03 AM CDT 02/03/2024 1:17 AM CDT Kaylee Reyes MD LAB - CHEMISTRY TOBY BILLY [facility] [address] [place] [address], [facility] [phone] from Last 3 Months or Most Recently Relevant to Health Maintenance Care Teams Director Of Outpatient Services Relationship Specialty Start Date End Date Damian Sadler MD PCP - General Internal Medicine 07/04/16
--- OUTSIDE RECORDS SUMMARY | 2024-10-24 23:37 | XMS_ITS | Referral Summary ---
Author Organization [facility] Address [address] [place] [address] Care Team Providers Care Shoe Handler Name Role Phone Lucas Carter DO Primary Care Provider [phone] Allergies Active Allergy Reactions Criticality Noted Date Comments Hydralazine Headache,Vomiting Low 01/21/2024 Ketorolac Hives,Itching Medium 10/17/2017 Tramadol Hives,Urticaria Medium 08/27/2016 Medications omeprazole (PriLOSEC) 20 mg capsuleIndications :Treatment of Non-Bleeding Gastric Disorder Take 1 capsule (20 mg total) by mouth iron carrier 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 Active MULTIVIT-MINERALS/ FERROUS FUM (MULTI VITAMIN ORAL)Indications:h ealth Take 1 tablet by mouth iron carrier 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 Active ondansetron ODT (ZOFRAN-ODT) 4 [...] 1 tablet (25 mg total) by mouth iron carrier 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 Active nebivoloL (BYSTOLIC) 10 mg [...] Legal Sex Female 9:06 PM DIRECTOR OF MARKETING [employer] PERFORMANCE ADS Gender Identity Female 10/01/2023 8:44 AM DIRECTOR OF MARKETING [employer] PERFORMANCE ADS Sexual Orientation Straight 10/01/2023 8: 44 AM DIRECTOR OF MARKETING [employer]FORMANCE ADS Last Filed Vital Signs Vital Sign Reading Time Taken Comments Blood Pressure 125/82 06/29/2024 10:05 AM DIRECTOR OF MARKETING [employer] PERFORMANCE ADS Pulse 75 06/29/2024 10:05 AM DIRECTOR OF MARKETING [employer] PERFORMANCE ADS Temperature 36.2 C (97.2 F) 06/29/2024 9:28 AM DIRECTOR OF MARKETING [employer] PERFORMANCE ADS Respiratory Rate 15 06/29/2024 10:0 5 AM DIRECTOR OF MARKETING [employer] PERFORMANCE ADS Oxygen Saturation 96% 06/29/2024 10: 05 AM DIRECTOR OF MARKETING [employer] PERFORMANCE ADS Inhaled Oxygen Concentration - - Weight 83.4 kg (183 lb 12.8 oz) 06/29/2024 7:50 AM DIRECTOR OF MARKETING [employer] PERFORMANCE ADS Height 160 cm (5' 3 ) 06/29/2024 7:50 AM DIRECTOR OF MARKETING [employer] PERFORMANCE ADS Body Mass Index 32.56 06/29/2024 7:50 AM DIRECTOR OF MARKETING [employer] PERFORMANCE ADS Plan of Treatment Not on file Goals [...] home safety. Medical Devices Implanted Type Area Material Expediter Device Identifier Shelf Expiration Date Model / Serial / Lot Screw Left: Elbow Insurance IDPA [facility] CHOICE PLUS [facility] Member Subscriber Plan / Payer ( fective 2024-Present) Name:Renee Luke Relation to Subscriber:Self Name:Renee Luke Payer ID:[id number] (NAIC) Type:MEDICAID RISK OTHER Address: [place] [id number] Advance Directives For more information, please contact: [phone] * Full Code (Latest Code Status on File) Date Activated Date Inactivated Comments 08/15/2022 3:10 PM 08/18/2022 6:09 PM Care Teams Shoe Handler Relationship Specialty Start Date End Date Lucas Carter DO PCP - General Internal Medicine 08/15/22
[2024-10-25] VITALS (25 sets, daily range): BP systolic 158–231; BP diastolic 110–139; PULSE 68–88; RESP 16–18; TEMP 36.5–36.6; O2SAT 94–99
[2024-10-25 01:46] LABS: BEDSIDEPREGUCG Negative (Negative)
[2024-10-25 01:50] LABS: Basophils Percent Auto 0.5 % (0.2-1.2); Eosinophils Absolute Auto 0.2 K/mm3 (0-0.3); Eosinophils Percent Auto 2.9 % (0-4.4); Hematocrit 43.1 % (37.0-47.0); Hemoglobin 15.1 g/dL (12.0-15.0); Immature Granulocyte Absolute 0.02 K/mm3 (0.00-0.031); Immature Granulocyte Percent A 0.2 % (0-0.5); Lymphocytes Absolute Auto 2.81 K/mm3 (0.9-3.2); Lymphocytes Percent Auto 33.6 % (18.3-44.2); Mean Corpuscular Hemoglobin 30.6 pg (26-34); Mean Corpuscular Volume 87.4 fl (80-100); Mean Platelet Volume 9.1 fl (7.4-10.4); Monocytes Percent Auto 12.3 % (2.6-8.5); Neutrophils Absolute Auto 4.2 K/mm3 (1.3-6.7); Neutrophils Percent Auto 50.5 % (45.5-73.1); Platelet Count Result 237 k/mm3 (150-375); Red Blood Count 4.93 M/mm3 (4.2-5.4); Red Cell Distribution Width 12.6 % (11.5-14.5); White Blood Count 8.4 K/mm3 (4.5-10.0)
--- OUTSIDE RECORDS SUMMARY | 2024-10-25 01:51 | XMS_ITS | Patient Health Summary ---
Author Organization [facility] Address [address] [place] [address] Care Team Providers Care Bonsai Culturist Name Role Phone Damian Sadler MD Primary Care Provider [phone] [facility],non-owned Affiliates and Associated Physician Practices is amultiple site organization consisting of ambulatory clinics and hospital sitesin [place], [place], [place] and [place]. This disclosure is being madepursuant to the Care Everywhere program and may not contain all information available regarding this patient. 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 [...] M54.2: Cervicalgia R53.83: Other fatigue Z79.899: Other longterm (current) 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 Additional History: COMPARISON: None. [...] M54.2: Cervicalgia. R53.83: Other fatigue. Z79.899: Other longterm (current) 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. Additional History: COMPARISON: None. [...] M54.2: Cervicalgia. R53.83: Other fatigue. 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 Additional History: COMPARISON: None. [...] M54.2: Cervicalgia. R53.83: Other fatigue. 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 Additional History: COMPARISON: None. [...] M54.2: Cervicalgia. R53.83: Other fatigue. 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 Additional History: COMPARISON: None. [...] Resulting Agency Comment Lab Testing performed at: [facility] [address] [phone] Nancy Cotto MD LAB - CHEMISTRY TOBY BILLY [facility] Organization Address City/State/ZIP Co de Phone Number [facility] INSURANCE BILL [address] [place] [address] * HEPATITIS SCREEN ACUTE ([facility]) (02/20/2024 10:47 [...] Resulting Agency Comment [facility] performed [facility]: [facility] [address] [phone] Nancy Cotto MD LAB - CHEMISTRY TOBY BILLY [facility] INSURANCE BILL [address] [place] [address] * RHEUMATOID ARTHRITIS 14-3-3 ETA (02/20/2024 10:47 AM CDT) 14.3.3 eta Protein <0.20 ng/mL [facility] INSURANCE BILL Comment: Reference Range: < 0.20 Comments: 14-3-3 eta protein is a joint-derived, proinflammatory promotional demonstrator that is implicated in the joint erosion [...] et al. 14-3-3 eta is a novel promotional demonstrator associated with the pathogenesis of rheumatoid arthritis and joint damage. Arthritis Res Ther 2014;16:R99. This test was developed and its performance characteristics determined by [facility]. It has not been cleared or approved by the Food and Drug Administration. Blood BLOOD SPECIMEN / Unknown 02/20/2024 10:47 AM CDT 02/20/2024 Narrative Resulting Agency Comment Lab Testing performed at: [facility] [address] [place] [address] [phone] Nancy Cotto MD LAB - CHEMISTRY ORDE RABLES Performing Organization Address [facility]/ZIP Co de Phone Number [facility] INSURANCE BILL [address] [place] [address] * INTERPRETATION REFLEXED (02/20/2024 10:47 AM CDT) Interpretation [facility] INSURANCE BILL Comment: Not infected with HCV unless early or acute infection is suspected (which may be delayed in an immunocompromised individual), or other evidence exists to indicate HCV infection. 02/20/2024 10:4 7 AM CDT 02/20/2024 Narrative Resulting Agency Comment Lab Testing performed at: [facility] [address] [facility] [phone] Nancy Cotto MD LAB - SEROLOGY ORDER ROLANDA Performing Organization Address City/[facility] Co de Phone Number [facility] INSURANCE BILL [address] [place] [address] * (ABNORMAL) IMMUNOFIXATION BLOOD (02/20/2024 10:47 AM [...] Resulting Agency Comment Lab Testing performed [facility]: [facility] [address] [facility] [phone] Nancy Cotto MD LAB - CHEMISTRY TOBY BILLY [facility] INSURANCE BILL [address] [place] [address] * RHEUMATOID FACTOR BLOOD QUANTITATIVE (02/20/2024 10:47 AM CDT) Rheumatoid Factor <10.0 <14.0 IU/mL [facility] INSURANCE BILL Blood BLOOD SPECIMEN / Unknown 02/20/2024 10:47 AM CDT 02/20/2024 Narrative Resulting Agency Comment Lab Testing performed at: [address] [phone] Nancy Cotto MD LAB - CHEMISTRY TOBY BILLY Performing Organization Address [facility]/ZIP Co de Phone Number [facility] INSURANCE BILL [address] [place] [address] * C-REACTIVE PROTEIN (02/20/2024 10:47 AM CDT) Only the most recent of2 resultswithin the time period is included. C-Reactive Protein <1 0 - 10 mg/L [facility] INSURANCE BILL Blood BLOOD SPECIMEN / Unknown 02/20/2024 10:47 AM CDT 02/20/2024 Narrative Resulting Agency Comment Lab Testing performed [facility]: [facility] [address] [facility] [facility] [address] [phone] Nancy Cotto MD LAB - CHEMISTRY TOBY BILLY [facility] INSURANCE BILL [address] [place] [address] * HLA TYPING B27 (02/20/2024 10:47 AM CDT) HLA-B27 Negative [facility] INSURANCE BILL Comment: HLA-B*27 Negative B27 allele interpretation for all loci based on IMGT/HLA database version 3.51.0 This test was developed and its performance characteristics determined by [employer]. It has not been cleared or approved by the Food and Drug Administration. HLA Lab CLIA ID Number [id number] This test was performed using Polymerase Chain Reaction (PCR) and Sequence Specific Oligonucleotide Probes (SSOP) technique. Sequence Based Typing (SBT) may be used as a supplemental method when necessary. If you have questions, please call [facility] customer service at or email at [email or web address] Blood BLOOD SPECIMEN / Unknown 02/20/2024 10:47 AM CDT 02/20/2024 Narrative Resulting Agency Comment Lab Testing performed at: [place] [address] [facility] [phone] Nancy Cotto MD LAB - CHEMISTRY TOBY BILLY Performing Organization Address City/[facility]/ZIP Co de Phone Number [facility] [address] [place] [address] * ANGIOTENSIN CONVERTING ENZYME BLOOD (02/20/2024 10:47 AM CDT) Angiotensin-Con verting Enzyme 77 14 - 82 U/L [facility] Blood BLOOD SPECIMEN / Unknown 02/20/2024 10:47 AM CDT 02/20/2024 Narrative Resulting Agency Comment Lab Testing performed at: [place] [id number] [facility] [id number] Nancy Cotto MD LAB - CHEMISTRY TOBY BILLY Performing Organization Address City/[facility]/ZIP Co de Phone Number [facility] INSURANCE BILL [address] [place] [address] * ALDOLASE (02/20/2024 10:47 AM CDT) Aldolase 6.9 3.3 - 10.3 U/L [facility] INSURANCE BILL Blood BLOOD SPECIMEN / Unknown 02/20/2024 10:47 AM CDT 02/20/2024 Narrative Resulting Agency Comment Lab Testing performed at: [place] [id number] [facility] [phone] Nancy Cotto MD LAB - CHEMISTRY TOBY BILLY Performing Organization Address [facility]/ZIP Co de Phone Number [facility] INSURANCE BILL [address] [place] [address] * CYCLIC CITRULLINATED PEPTIDE(CCP) AB IGG (02/20/2024 10:47 AM CDT) CCP Antibodies IgG/IgA <20 <20 Units [facility] INSURANCE BILL Comment: Negative: <20 Weak Positive: 20-39 Moderate Positive: 40-59 Strong Positive: >59 Blood BLOOD SPECIMEN / Unknown 02/20/2024 10:47 AM CDT 02/20/2024 Narrative Resulting Agency Comment Lab Testing performed at: [facility] [address] [place] [address] [phone] Nancy Cotto MD LAB - CHEMISTRY TOBY BILLY Performing Organization Address [facility] Co de Phone Number [facility] INSURANCE BILL [address] [place] [address] * ERYTHROCYTE SEDIMENTATION RATE (02/20/2024 10:47 AM CDT) Only the most recent of2 resultswithin the time period is included. Erythrocyte Sedimentation Rate Westergren 10 0 - 32 mm/hr [facility] INSURANCE BILL Blood BLOOD SPECIMEN / Unknown 02/20/2024 10:47 AM CDT 02/20/2024 Narrative Resulting Agency Comment Lab Testing performed at: [facility] [address] [facility] [facility] [phone] Nancy Cotto MD LAB - HEMATOLOGY ORD ERABLES Performing Organization Address City/[facility]/ZIP Co de Phone Number [facility] INSURANCE BILL [address] [place] [address] * COMPLEMENT C4 (02/20/2024 10:47 AM CDT) Complement C4 26 14 - 44 mg/dL [facility] INSURANCE BILL Blood BLOOD SPECIMEN / Unknown 02/20/2024 10:47 AM CDT 02/20/2024 Narrative Resulting Agency Comment Lab Testing performed at: [facility] [address] [facility] [phone] Nancy Cotto MD LAB - SEROLOGY ORDER ROLANDA [facility] INSURANCE BILL [address] [place] [address] * CK BLOOD (02/20/2024 10:47 AM CDT) Pathologist [facility] CK 73 32 - 182 U/L [facility] INSURANCE BILL Blood BLOOD SPECIMEN / Unknown 02/20/2024 10:47 AM CDT 02/20/2024 Narrative Resulting Agency Comment Lab Testing performed at: [facility] [place] [address] [facility] [facility] [phone] Nancy Cotto MD LAB - CHEMISTRY ORDE RABLES Performing Organization Address City/[facility]/ZIP Co de Phone Number [facility] INSURANCE BILL [address] [place] [address] * PROTEIN ELECTROPHORESIS BLOOD (02/20/2024 10:47 AM CDT) Only the most recent of2 resultswithin the time period is included. Pathologist [facility] Protein Total 6.7 6.0 - 8.5 g/dL [facility] INSURANCE BILL Albumin 3.8 2.9 - 4.4 g/dL [facility] INSURANCE BILL Alpha-1 Globulin 0.2 0.0 - 0.4 g/dL [facility] INSURANCE BILL Jzyfb-2-Ixaswyea 0.6 0.4 - 1.0 g/dL [facility] INSURANCE [...] scan will follow via computer, mail, or egg pasteurizer delivery. P E Interpretation, S [facility] INSURANCE BILL Comment: The SPE pattern appears unremarkable. Evidence of monoclonal protein is not apparent. Blood BLOOD SPECIMEN / Unknown 02/20/2024 10:47 AM CDT 02/20/2024 Narrative Resulting Agency Comment Lab Testing performed at: [facility] [place] [address] [facility] [facility] [phone] Nancy Cotto MD LAB - CHEMISTRY TOBY BILLY Performing Organization Address [facility]/ZIP Co de Phone Number [facility] INSURANCE BILL [address] [place] [address] * (ABNORMAL) COMPLEMENT C3 (02/20/2024 10:47 AM CDT) Complement C3 187(H) 82 - 167 mg/dL [facility] INSURANCE BILL Blood BLOOD SPECIMEN / Unknown 02/20/2024 10:47 AM CDT 02/20/2024 Narrative Resulting Agency Comment Lab Testing performed at: [facility] [address] [facility] [id number] Nancy Cotto MD LAB - CHEMISTRY TOBY BILLY Performing Organization Address [facility]/ZIP Co de Phone Number [facility] INSURANCE BILL [address] [place] [address] * MERLIN PANEL COMPREHENSIVE (02/20/2024 10:46 AM CDT) Anti-dsDNA Quantitative <1 0 - 9 IU/mL [facility] INSURANCE BILL Comment: Negative <5 Equivocal 5 - 9 Positive >9 INSTRUCTOR [employer]IVATE Antibody 0.2 0.0 - 0.9 AI [facility] [...] Sm (anti-Tellez) SLE 15 - 30% --------- INSTRUCTOR [employer] Mixed Connective Tissue Disease 95% (U1 nRNP, SLE 30 - 50% anti-ribonucleoprotein) Polymyositis and/or Dermatomyositis 20% --------- Scl-70 (antiDNA Scleroderma (diffuse) 20 - 35% topoisomerase) Crest 13% --------- Lorna-1 Polymyositis and/or Dermatomyositis 20 - 40% --------- Centromere B Scleroderma - Crest variant 80% Blood BLOOD SPECIMEN / Unknown 02/20/2024 10:46 AM CDT 02/20/2024 Narrative Resulting Agency Comment Lab Testing performed at: [facility] [address] [facility] [facility] [phone] Nancy Cotto MD LAB - SEROLOGY ORDER ROLANDA [facility] INSURANCE BILL [address] [place] [address] * ANCA VASCULITIS PANEL (02/20/2024 10:46 AM [...] up testing of positive sera with both HI-3 and MPO-ANCA enzyme immunoassays. As many as [...] Resulting Agency Comment Lab Testing performed at: [address] [phone] Nancy Cotto MD LAB - CHEMISTRY TOBY BILLY [facility] INS[facility] B[facility] [address] [place] [address] * THIOPURINE METHYLTRANSFERASE (02/20/2024 10:46 AM CDT) TPMT Activity 25.6 Units/mL RBC [facility] INS[facility] Comment: Reference Range: Normal: 15.1 - 26.4 Heterozygous for low TPMT variant: 6.3 - 15.0 Homozygous for low TPMT variant: <6.3 Interpretation [facility] INSURANCE BILL Comment: The above results can be interpreted as Normal for red blood cell Thiopurine Methyltransferase activity. For patients having an intrinsic low level of TPMT, recent RBC transfusion can variably increase their assayed enzymatic activity depending on the amount and circulating half-life of the transfused red blood cells. This test was developed and its performance characteristics determined by [facility]. It has not been cleared or approved by the Food and Drug Administration. This case has been reviewed, approved, interpreted and electronically signed by Kodi Weldon, PhD, [facility]. Methodology [facility] INS[facility] B[facility] Comment: Enzymatic Endpoint/Liquid Chromatography - Tandem Mass Spectrometry (LC-MS/MS) Blood BLOOD SPECIMEN / Unknown 02/20/2024 10:46 AM CDT 02/20/2024 Narrative Resulting Agency Comment Lab Testing performed at: [facility] [id number] Nancy Cotto MD LAB - CHEMISTRY TOBY BILLY Performing Organization Address City/[facility]/ZIP Co de Phone Number [facility] INS[facility] BILL [address] [place] [address] * IRON + TIBC PANEL (02/20/2024 10:46 [...] Resulting Agency Comment Lab Testing performed at: [facility] [place] [address] [facility] [phone] Nancy Cotto MD LAB - CHEMISTRY TOBY BILLY Performing Organization Address City/[facility]/ZIP Co de Phone Number [facility] INSURANCE BILL [address] [place] [address] * CBC W AUTO DIFFERENTIAL (02/03/2024 1:03 AM CDT) Only the most recent of2 resultswithin the time period is included. WBC 7.8 4.0 - 10.7 x10E9/L 02/03/2024 1:27 AM CDT [facility] RBC Count 5.03 3.90 - 5.20 x10E12/L 02/03/2024 1:27 AM CDT [facility] Hemoglobin 15.3 11.9 - 15.8 g/dL 02/03/2024 1:27 AM CDT [facility] Hematocrit 42.7 34.8 - 46.1 % 02/03/2024 1:27 AM CDT [facility] MCV 84.9 80.0 - 98.0 [...] Reyes MD LAB - HEMATOLOGY ORD ERABLES [facility] [address] [place] [address], [facility] [phone] * (ABNORMAL) COMPREHENSIVE METABOLIC PANEL (02/03/2024 1:03 [...] 02/03/2024 1:03 AM CDT 02/03/2024 1:17 AM [facility] Kaylee Reyes MD LAB - CHEMISTRY ORDRei [facility] Organization Address City/State/ZIP Co de Phone Number [facility] [address] [place] [address], [facility] [phone] * (ABNORMAL) URINALYSIS W/MICROSCOPIC NO CULTURE (02/03/2024 12:57 AM T) Color UA Yellow Straw, Yellow 02/03/2024 1:40 AM [facility] Clarity UA t Cloudy(A) Clear 02/03/2024 1:40 AM [facility] Specific Kewadin UA 1.020 1.005 - 1.030 02/03/2024 1:40 [...] UA Negative Negative 02/03/2024 1:40 AM CDT [facility] Blood UA Negative Negative 02/03/2024 1:40 AM CDT [facility] Nitrite UA Negative Negative 02/03/2024 1:40 AM CDT [facility] Leukocyte Esterase Negative Negative 02/03/2024 1:40 AM CDT [facility] Urobilinogen UA Negative Negative mg/dL 02/03/2024 1:40 AM CDT [facility] RBC UA 6-10(A) None Seen, 0-2, 3-5 /HPF 02/03/2024 1:40 AM CDT [facility] WBC UA 0-5 None Seen, 0-5 /HPF 02/03/2024 1:40 AM T [facility] Squamous Epithelial Cells UA 6-10(A) None Seen, 0-2, 3-5 /HPF 02/03/2024 1:40 AM CDT [facility] Mucus UA 2+ /LPF 02/03/2024 1:40 AM CDT [facility] Urine URINE SPECIMEN OBTAINED BY CLEAN CATCH PROCEDURE / Unknown Collection / Unknown 02/03/2024 12:57 AM CDT 02/03/2024 1:13 AM CDT Narrative [facility] - 02/03/2024 1:40 AM CDT Kaylee Reyes MD LAB - URINALYSIS ORD ERABLES [facility] [address] [place] [address], [facility] [phone] * CT RENAL STONE (02/03/2024 12:19 AM [...] Dictated by Samy Johnson MD, PhD (residential specialist). I, Haylee Lopez MD have personally reviewed and interpreted this examination/study. > Interpreting Provider: Haylee Lopez MD on 02/03/2024 10:15 AM Narrative 02/03/2024 10:15 AM CDT PROCEDURE: CT RENAL STONE, DATE/TIME OF EXAM: 02/03/2024 12:19 AM, LOCATION [facility] INDICATION: R10.9: Flank pain ADDITIONAL CLINICAL INFORMATION: [...] DATE/TIME OF EXAM: 02/03/2024 12:19 AM, LOCATION [facility] INDICATION: R10.9: Flank pain ADDITIONAL CLINICAL INFORMATION: [...] Dictated by Samy Johnson MD, PhD (residential specialist). I, Haylee Lopez MD have personally reviewed and interpreted this examination/study. > Interpreting Provider: Haylee Lopez MD on 410:15 AM Kaylee Reyes MD CT ORDERABLES * HCG URINE QUAL POCT NOTIFICATION (06/04/2019 1:02 PM CDT) Comment Notification Label Only - See Separate Report 06/04/2019 1:02 PM CDT [facility] Urine URINE / Unknown 11:47 AM CDT Tarun Garcia MD LAB - URINALYSIS OR DERABLES [facility] [address] [place] [address] * CT ABDOMEN AND PELVIS WITH IV [...] on 06/04/2019 at 1:11 PM Luna Durant ORGANIC LAB WORKER-JAVA TECHNICAL ARCHITECT CT ORDERABLES * URINALYSIS REFLEX MICROSCOPIC REFLEX CULTURE (06/04/2019 12:07 PM CDT) Color UA Straw Straw, Yellow 06/04/2019 12:14 PM CDT [facility] Clarity UA Clear Clear 06/04/2019 12:14 PM CDT [facility] Glucose UA Negative Negative 06/04/2019 12:14 PM [facility] Bilirubin UA Negative Negative 06/04/2019 12:14 PM [facility] Ketone UA Negative Negative 06/04/2019 12:14 PM [facility] Specific [place]ewadin UA 1.006 1.005 - 1.030 06/04/2019 12:14 PM CDT [facility] Blood UA Negative Negative 06/04/2019 12:14 PM [facility] pH UA 7.0 5.0 - 8.0 pH 06/04/2019 12:14 PM [facility] Protein UA Negative Negative 06/04/2019 12:14 PM CDT [facility] Urobilinogen UA Negative Negative mg/dL 06/04/2019 12:14 PM CDT [facility] Nitrite UA Negative Negative 06/04/2019 12:14 PM CDT [facility] Leukocyte UA Negative Negative 06/04/2019 12:14 PM [facility] Urine Microscopy Urine microscopy not indicated 06/04/2019 12:14 PM [facility] Reflex Status Culture not indicated 06/04/2019 12:14 PM CDT [facility] Urine URINE SPECIMEN OBTAINED BY CLEAN CATCH PROCEDURE / Unknown Collection / Unknown 06/04/2019 12:07 PM CDT 06/04/2019 12:09 PM CDT Narrative [facility] - 06/04/2019 12:14 PM CDT Tarun Garcia MD LAB - URINALYSIS OR DERABLES Performing Organization Address City/[facility]/ZIP Co de Phone Number [facility] [address] [place] [address] * HCG URINE QUALITATIVE - POCT (IP) INTERFACED (06/04/2019 12:06 PM CDT) HCG Qual Urine Negative Negative 06/04/2019 12:12 PM CDT [facility] Urine URINE / Unknown 06/04/2019 1 2:06 PM CDT 06/04/2019 12:12 PM CDT Provider Unknown LAB - POINT OF CARE ORDERABLES Performing Organization Address City/[facility]/ZIP Co de Phone Number [facility] [address] [place] [address] * LIPASE BLOOD (06/04/2019 11:56 AM CDT) Lipase 29 8 - 78 U/L 06/04/2019 12:59 PM CDT [facility] Blood BLOOD SPECIMEN / Unknown Venipuncture / Unknown 06/04/2019 11:56 AM CDT 06/04/2019 12:06 PM CDT Luna Durant ORGANIC LAB WORKER-JAVA TECHNICAL ARCHITECT LAB - CHEMISTRY O RDERABLES [facility] [address] [place] [address] * RPR (08/27/2016 3:46 PM MICROBIOLOGY MANAGER) RPR Non Reactive Non Reactive [facility] ACCOUNT BILL Blood BLOOD SPECIMEN / Unknown 08/27/2016 3:46 PM MICROBIOLOGY MANAGER 08/27/2016 Narrative Resulting Agency Comment [facility] [address] [address] [place] [phone] Albert Hutchinson MD LAB - CHEMISTRY TOBY BILLY Performing Organization Address City/[facility]/ZIP Co de Phone Number [facility] ACCOUNT BILL [address] [place] [address] * VITAMIN B6 (08/27/2016 3:46 PM MICROBIOLOGY MANAGER) Vitamin B6 14.9 2.0 - 32.8 ug/L [facility] ACCOUNT BILL Blood BLOOD SPECIMEN / Unknown 08/27/2016 3:46 PM MICROBIOLOGY MANAGER 08/27/2016 Narrative Resulting Agency Comment [facility] [address] [phone] Albert Hutchinson MD LAB - CHEMISTRY TOBY BILLY Performing Organization Address [facility] Co de Phone Number [facility] ACCOUNT BILL [address] [place] [address] * VITAMIN B12 FOLATE PANEL (08/27/2016 3:46 PM MICROBIOLOGY MANAGER) Vitamin B12 879 211 - 911 pg/mL [facility] ACCOUNT BILL Folate 13.6 3.1 - 17.5 ng/mL [facility] ACCOUNT BILL Blood BLOOD SPECIMEN / Unknown 08/27/2016 3:46 PM MICROBIOLOGY MANAGER 08/27/2016 Narrative Resulting Agency Comment [facility] [address] [address] [place] [phone] Albert Hutchinson MD LAB - CHEMISTRY TOBY BILLY Performing Organization Address City/[facility] Co de Phone Number [facility] ACCOUNT BILL [address] [place] [address] * (ABNORMAL) TSH (08/27/2016 3:46 PM MICROBIOLOGY MANAGER) TSH 0.280(L) 0.358 - 3.740 uIU/mL [facility] ACCOUNT BILL Blood BLOOD SPECIMEN / Unknown 08/27/2016 3:46 PM MICROBIOLOGY MANAGER 08/27/2016 Narrative Resulting Agency Comment [facility] [address] [address] [phone] Albert Hutchinson MD LAB - CHEMISTRY DARIARei WENCESLAO [facility] ACCOUNT [place] [place] [address] * IMAGING/RADIOLOGY/XRAY RESULTS ORDER (10/20/2009 6:02 AM MICROBIOLOGY MANAGER) Anatomical Region Laterality Modality Other Narrative 10/20/2009 6:02 AM MICROBIOLOGY MANAGER Ordered by an unspecified provider. Transcriptions Document, Scanned - 09/20/2009 12:00 AM MICROBIOLOGY MANAGER Scanned Document IMAGING * CHROMOSOME ANALYSIS AMNIO PANEL (08/31/2009 12:00 PM MICROBIOLOGY MANAGER) Chromosome Analysis Amniotic Fluid See Scanned Report [facility] Comment Amniotic Fluid [facility] AMNIOTIC FLUID SPECIMEN / Unknown 08/31/2009 12:00 PM MICROBIOLOGY MANAGER 08/31/2009 12:40 PM MICROBIOLOGY MANAGER Arvin Anderson MD LAB - PATHOLOGY/CYTO LOGY ORDERABLES [facility] [facility] [address] [place] [address] Care Teams Bonsai Culturist Relationship Specialty Start Date End Date Damian Sadler MD PCP - General Internal Medicine 07/04/16
--- OUTSIDE RECORDS SUMMARY | 2024-10-25 01:51 | XMS_ITS | Referral Summary ---
Author Organization [facility] Address [address] [facility] [place] [address] Care Team Providers Care Financial Aids Officer Name Role Phone Damian Sadler MD Primary Care Provider [phone] Source Comments [facility],non-owned Affiliates and Associated Physician Practices is amultiple site organization consisting of ambulatory clinics and hospital sitesin [place], [place], [place] and [place]. This disclosure is being madepursuant to the Care Everywhere program and may not contain all information available regarding this patient. Last updated 18.[facility] Allergies Active Allergy Reactions Criticality Noted Date [...] Resulting Agency Comment Lab Testing performed at: [facility] [address] [facility] [id number] Nancy Cotto MD LAB - CHEMISTRY TOBY BILLY [facility] INSURANCE BILL [address] [place] [address] * (ABNORMAL) COMPREHENSIVE METABOLIC PANEL (02/03/2024 1:03 AM CDT) BUN 9 7 - 26 mg/dL 02/03/2024 1:45 AM [facility] Creatinine 0.64 0.56 - 0.96 mg/dL 02/03/2024 1:45 AM [facility] Sodium 139 136 - 145 mmol/L 02/03/2024 1:45 AM [facility] Potassium 3.4(L) 3.5 - 4.5 mmol/L 02/03/2024 1:45 AM [facility] Chloride 107 98 - 107 mmol/L 02/03/2024 1:45 AM [facility] CO2 21(L) 22 - 29 mmol/L 02/03/2024 1:45 AM [facility] Glucose 78 70 - 115 mg/dL 02/03/2024 1:45 AM [facility] Calcium 9.9 8.4 - 10.2 mg/dL 02/03/2024 1:45 AM [facility] Protein Total 7.7 6.0 - 8.3 [...] 02/03/2024 1:03 AM CDT 02/03/2024 1:17 AM [facility] Kaylee Reyes MD LAB - CHEMISTRY TOBY BILLY [facility] Organization Address City/State/ZIP Co de Phone Number [facility] [address] [place] [address], [facility] [phone] from Last 3 Months or Most Recently Relevant to Health Maintenance Care Teams Financial Aids Officer Relationship Specialty Start Date End Date Damian Sadler MD PCP - General Internal Medicine 07/04/16
--- OUTSIDE RECORDS SUMMARY | 2024-10-25 01:51 | XMS_ITS | Clinical Summary ---
Author Organization [facility] Address [address] [facility] [place] [address] Care Team Providers Care Pillowcase Cutter Name Role Phone Damian Sadler MD Primary Care Provider [phone] Source Comments [facility],non-owned Affiliates and Associated Physician Practices is amultiple site organization consisting of ambulatory clinics and hospital sitesin [place], [place], [place] and [place]. This disclosure is being madepursuant to the Care Everywhere program and may not contain all information available regarding this patient. Last updated 18.[facility] Allergies Active Allergy Reactions Criticality Noted Date [...] Resulting Agency Comment Lab Testing performed at: [address] [id number] Nancy Cotto MD LAB - CHEMISTRY TOBY BILLY [facility] INSURANCE BILL [address] [facility] [place] [address] * (ABNORMAL) COMPREHENSIVE METABOLIC PANEL (02/03/2024 1:03 AM [facility]) BUN 9 7 - 26 mg/dL 02/03/2024 1:45 AM [facility] Creatinine 0.64 0.56 - 0.96 mg/dL 02/03/2024 1:45 AM [facility] Sodium 139 136 - 145 mmol/L 02/03/2024 1:45 AM [facility] Potassium 3.4(L) 3.5 - 4.5 mmol/L 02/03/2024 1:45 AM [facility] Chloride 107 98 - 107 mmol/L 02/03/2024 1:45 AM [facility] CO2 21(L) 22 - 29 mmol/L 02/03/2024 1:45 AM [facility] Glucose 78 70 - 115 mg/dL 02/03/2024 1:45 AM [facility] Calcium 9.9 8.4 - 10.2 mg/dL 02/03/2024 1:45 AM [facility] Protein Total 7.7 6.0 - 8.3 g/dL 02/03/2024 1:45 AM [facility] Albumin 4.4 3.4 - 5.0 g/dL 02/03/2024 1:45 AM [facility] Bilirubin Total 0.4 0.2 - 1.2 mg/dL 02/03/2024 1:45 AM [facility] Alkaline Phosphatase 81 40 - 150 U/L 02/03/2024 1:45 AM [facility] ALT 58(H) 5 - 55 U/L 02/03/2024 1:45 AM [facility] AST 33 5 - 34 U/L 02/03/2024 1:45 AM [facility] Anion Gap 11 6 - 16 02/03/2024 1:45 AM [facility] BUN/Creatinine Ratio 14 7 - 23 02/03/2024 1:45 AM [facility] Osmolality Calculated 286 275 - 295 mOsm/kg 02/03/2024 1:45 AM [facility] Albumin/Globulin Ratio 1.3 1.1 - 2.3 02/03/2024 1:45 AM CDT [facility] eGFR by CKD-EPI >90 >=90 mL/min/1.7 3 m2 02/03/2024 1:45 AM [facility] Blood BLOOD SPECIMEN / Unknown Venipuncture / Unknown 02/03/2024 1:03 AM CDT 02/03/2024 1:17 AM CDT Kaylee Reyes MD LAB - CHEMISTRY TOBY BILLY [facility] [address] [place] [address], [facility] [phone] from Last 3 Months or Most Recently Relevant to Health Maintenance Care Teams Pillowcase Cutter Relationship Specialty Start Date End Date Damian Sadler MD PCP - General Internal Medicine 07/04/16
--- OUTSIDE RECORDS SUMMARY | 2024-10-25 01:51 | XMS_ITS | Clinical Summary ---
Author Organization [facility] al Address [address] [place] [address] Care Team Providers Care Lamps Tester And Inspector Name Role Phone Lucas Carter DO Primary Care Provider [phone] Allergies Active Allergy Reactions Criticality Noted Date Comments Hydralazine Headache,Vomiting Low 01/21/2024 Ketorolac Hives,Itching Medium 10/17/2017 Tramadol Hives,Urticaria Medium 08/27/2016 Medications omeprazole (PriLOSEC) 20 mg capsuleIndications :Treatment of Non-Bleeding Gastric Disorder Take 1 capsule (20 mg total) by mouth locomotive mechanic 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 Active MULTIVIT-MINERALS/ FERROUS FUM (MULTI VITAMIN ORAL)Indications:h ealth Take 1 tablet by mouth locomotive mechanic 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 Active ondansetron ODT (ZOFRAN-ODT) 4 [...] 1 tablet (25 mg total) by mouth locomotive mechanic 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 Active nebivoloL (BYSTOLIC) 10 mg [...] Grandfather Beka Sr. Hearing loss Maternal Grandmother [place] Alcohol abuse Mother Lisae Arthritis Mother Melodye COPD Mother Melodye Depression Mother Melodye Hearing loss Mother Melodye Obesity Mother Melelizabethe Stroke Paternal Grandfather Dusty Obesity Sister Sarai Relation Name Status Comments Brother Dusty Father Israel Maternal Grandfather Beka Sr. Maternal Grandmother [place] Mother Gretchen Paternal Grandfather Dusty Sister Sarai [...] on file Legal Sex Female 9:06 PM FROZEN FOOD SELECTOR Gender Identity Female 10/01/2023 8:44 AM FROZEN FOOD SELECTOR Sexual Orientation Straight 10/01/2023 8: 44 AM FROZEN FOOD SELECTOR Obstetrics History Para Term AB IAB SAB [...] Comments Blood Pressure 125/82 06/29/2024 10:05 AM [employer]OZEN FOOD SELECTOR Pulse 75 06/29/2024 10:05 AM [employer]OZEN FOOD SELECTOR Temperature 36.2 C (97.2 F) 06/29/2024 9:28 AM [employer]ZEN FOOD SELECTOR Respiratory Rate 15 06/29/2024 10:0 5 AM FROZEN FOOD SELECTOR Oxygen Saturation 96% 06/29/2024 10: 05 AM FROZEN FOOD SELECTOR Inhaled Oxygen Concentration - - Weight 83.4 kg (183 lb 12.8 oz) 06/29/2024 7:50 AM FROZEN FOOD SELECTOR Height 160 cm (5' 3 ) 06/29/2024 7:50 AM FROZEN FOOD SELECTOR Body Mass Index 32.56 06/29/2024 7:50 AM FROZEN FOOD SELECTOR Plan of Treatment Health Maintenance Due Date [...] on stairs Contact your local community or [facility] for information on exercise, fall prevention programs, or options for improving home safety. Medical Devices Implanted Type Area Commercial Sales Consultant Device Identifier Shelf Expiration Date Model / Serial / Lot Screw Left: Elbow Insurance IDPA [facility] CHOICE PLUS [facility] HMO/PPO Address: [address] [address] [place] [address] [facility] Member Subscriber Plan / Payer (Ef fective 2024-Present) Name:Renee Luke Relation to Subscriber:Self Name:Renee Luke Payer ID:[id number] (NAIC) Type:MEDICAID RISK OTHER Address: [place] [id number] Advance Directives For more information, please contact: [phone] * Full Code (Latest Code Status on File) Date Activated Date Inactivated Comments 08/15/2022 3:10 PM 08/18/2022 6:09 PM Care Teams Lamps Tester And Inspector Relationship Specialty Start Date End Date Lucas Carter DO PCP - General Internal Medicine 08/15/22
--- OUTSIDE RECORDS SUMMARY | 2024-10-25 01:51 | XMS_ITS | Referral Summary ---
Author Organization [facility] al Address [address] [place] [address] Care Team Providers Care Safety Belt Installer Name Role Phone Lucas Carter DO Primary Care Provider [phone] Allergies Active Allergy Reactions Criticality Noted Date Comments Hydralazine Headache,Vomiting Low 01/21/2024 Ketorolac Hives,Itching Medium 10/17/2017 Tramadol Hives,Urticaria Medium 08/27/2016 Medications omeprazole (PriLOSEC) 20 mg capsuleIndications :Treatment of Non-Bleeding Gastric Disorder Take 1 capsule (20 mg total) by mouth gas torch solderer 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 Active MULTIVIT-MINERALS/ FERROUS FUM (MULTI VITAMIN ORAL)Indications:h ealth Take 1 tablet by mouth gas torch solderer 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 Active ondansetron ODT (ZOFRAN-ODT) 4 [...] 1 tablet (25 mg total) by mouth gas torch solderer 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 Active nebivoloL (BYSTOLIC) 10 mg [...] on file Legal Sex Female 9:06 PM DISTANCE EDUCATION DIRECTOR Gender Identity Female 10/01/2023 8:44 AM DISTANCE EDUCATION DIRECTOR Sexual Orientation Straight 10/01/2023 8: 44 AM DISTANCE EDUCATION DIRECTOR Last Filed Vital Signs Vital Sign Reading Time Taken Comments Blood Pressure 125/82 06/29/2024 10:05 AM DISTANCE EDUCATION DIRECTOR Pulse 75 06/29/2024 10:05 AM DISTANCE EDUCATION DIRECTOR Temperature 36.2 C (97.2 F) 06/29/2024 9:28 AM DISTANCE EDUCATION DIRECTOR Respiratory Rate 15 06/29/2024 10:0 5 AM DISTANCE EDUCATION DIRECTOR Oxygen Saturation 96% 06/29/2024 10: 05 AM DISTANCE EDUCATION DIRECTOR Inhaled Oxygen Concentration - - Weight 83.4 kg (183 lb 12.8 oz) 06/29/2024 7:50 AM DISTANCE EDUCATION DIRECTOR Height 160 cm (5' 3 ) 06/29/2024 7:50 AM DISTANCE EDUCATION DIRECTOR Body Mass Index 32.56 06/29/2024 7:50 AM DISTANCE EDUCATION DIRECTOR Plan of Treatment Not on file Goals [...] home safety. Medical Devices Implanted Type Area Loss Control Engineer Device Identifier Shelf Expiration Date Model / Serial / Lot Screw Left: Elbow Insurance IDPA [facility] CHOICE PLUS [facility] HMO/PPO Address: [address] [address] [place] [address] [facility] Member Subscriber Plan / Payer ( fective 2024-Present) Name:Renee Luke Relation to Subscriber:Self Name:Renee Luke Payer ID:[id number] (NAIC) Type:MEDICAID RISK OTHER Address: [place] [id number] Advance Directives For more information, please contact: [phone] * Full Code (Latest Code Status on File) Date Activated Date Inactivated Comments 08/15/2022 3:10 PM 08/18/2022 6:09 PM Care Teams Safety Belt Installer Relationship Specialty Start Date End Date Lucas Carter DO PCP - General Internal Medicine 08/15/22
--- OUTSIDE RECORDS SUMMARY | 2024-10-25 01:51 | XMS_ITS | CONTINUITY OF CARE DOCUMENT ---
Author Name [email or web address] Address Unknown Organization [facility] Address [address] [facility] [address] [place] [address] Phone [phone] Care Team Providers Care Pcb Design Engineer Name Role Phone William CURIEL, Herlinda Unavailable [phone] [place] CURIEL, NABIL Schmidt Unavailable INSURANCE PROVIDERS Payer name Policy type / Coverage type Bj red republican ID [employer] Medicaid [id number] [facility] [id number]
[2024-10-25 01:53] LABS: Add Urine Microscopic? NO; Appearance Urine Clear (Clear); Bacteria Urine None Seen /hpf; Bilirubin Urine Negative (Negative); Blood Urine Non-Hemolyzed Trace (Negative); Color Urine Yellow (Yellow); Glucose Urine UA Negative (Negative); Ketones Urine Negative (Negative); Leukocyte Esterase Ur Negative LEU/UL (Negative); Nitrate Urine Negative (Negative); Non Pathogenic Casts 0-2; Protein Urine Negative (Negative); Specific Grav Ur 1.012 (1.001-1.035); Squamous Epithelial Cell Urine None Seen /hpf (Few); Urobilinogen Urine 0.2 mg/dL (<2.0); WBC Urine 0-5 /hpf (0-3)
[2024-10-25 02:04] LABS: Alanine Aminotransferase 47 U/L (6-35); Albumin Level 4.5 g/dL (3.5-5.1); Alkaline Phosphatase 86 U/L (38-126); Anion Gap 11 mmol/L (4-12); Aspartate Amino Transferase 35 U/L (14-36); Bilirubin,Total 0.4 mg/dL (0.2-1.3); Blood Urea Nitrogen 14 mg/dL (7-17); Calcium 9.4 mg/dL (8.4-10.2); Carbon Dioxide 24 mmol/L (22-30); Chloride 103 mmol/L (98-107); Estimated CRCL calculation 103 ml/min; Estimated Glomerular Filt Rate > 60; Glucose 98 mg/dL (65-110); Lipase 82 U/L (23-300); Potassium 3.8 mmol/L (3.4-5.0); Sodium 138 mmol/L (137-145)
--- NOTE | 2024-10-25 04:10 | ED.FEMALEGU ---
HPI - Female Genitourinary General Chief complaint: Urogenital-Female Stated complaint: kidney stones on the left side Time Seen by Provider: 10/25/24 01:48 Source: patient Mode of arrival: ambulatory Limitations: no limitations History of Present Illness HPI Narrative: Patient presents with concern for kidney stone. She recently underwent lithotripsy and surgical procedure on the right but not requiring a stent with urologist Dr. Gonzalez. Shortly thereafter, she started having pain on the left. She notes she has history longstanding of kidney stones. She states that she has a known history of kidney stones on the left but they had not moved and were otherwise stable. Denies any fevers or chills. She had a headache initially but it was better known. She does note that she nauseated and clammy. She is concerned she may have an infection given that she was having dysuria. She took ibuprofen. She states that she recently was treated for an infection and is status post 10 day course of cephalexin which she finished 3 days ago. Denies fevers or chills. She notes that she has a history of hypertension but did not take her beta-soila. Related Data Home Medications ?Medication ?Instructions ?Recorded ?Confirmed ?Last Taken ?Type multivitamin 1 tablet PO DAILY 04/04/22 10/21/24 10/20/24 History pregabalin 150 mg capsule 150 mg PO Q8H PRN pain 02/21/24 10/21/24 10/20/24 History hydrochlorothiazide 25 mg tablet 25 mg PO DAILY 10/21/24 10/21/24 10/20/24 History nebivolol 10 mg tablet (Bystolic) 10 mg PO DAILY 10/21/24 10/21/24 10/20/24 History Allergies Allergy/AdvReac Type Severity Reaction Status Date / Time ketorolac (From Toradol) Allergy Headache,Rash, Verified 10/25/24 07:33 Swollen tongue tramadol AdvReac Mild VOMITING/HE Verified 10/25/24 07:33 ADACHE hydralazine AdvReac Headache Verified 10/25/24 07:33 COUNT INCLUDES THE [facility] Past Medical History Medical History (Updated 10/25/24 @ 08:30 by Deirdre Oates MD) Hypertension Gastroesophageal reflux disease Sleep paralysis, recurrent isolated Smoker Obesity Depression Multiple kidney stones Seasonal allergies Surgical History Surgical History H/O ureteroscopy 10/21/24 on the right due to proximal ureteral stone; Dr Gonzalez History of laparoscopic cholecystectomy on 04/25/23 PDC History of tubal ligation History of endometrial ablation (2009) History of hysterectomy (2016) History of open reduction and internal fixation (ORIF) procedure (2012) Left elbow. History of section 2000, 2001, 2009 Status post cystoscopy with ureteral stent placement Family History Family History Mother Diabetes mellitus Depression Alcoholism Father Hypertension Sibling Congenital heart disease Son Asthma Grandparent Diabetes mellitus Cerebrovascular accident Social History Social History Social History: Surrogate medical decision maker: Bang Luke, spouse. Code status: Full code. Smoking packs per day: 0.5 Smoking cigarettes per day: 10.0 Years smoked: 32 Smoking pack-years: 16.00 Smoking status: Current every day smoker Tobacco type: cigarettes Alcohol intake: never Alcohol use details: Social alcohol use in moderation. Substance use: never Substance use type: does not use Do You Feel Safe in your Home?: Yes Lack of Transportation: No Lack of Food: Never True Current Housing: I Have Housing Concerned About Future Housing: No Difficulty Paying Gas/Electric Bills: No Difficulty Paying for Meds: No Currently Unemployed: No Education: High School Diploma/GED Difficulty w/ Childcare or Family Care: No Living arrangements: with family Spiritual care concerns: No Exam Narrative: GENERAL: well-nourished,in mild acute distress. HEAD: Normocephalic, atraumatic. EYES: Non injected, non icteric ENT: Nares clear, no rhinorrhea or epistaxis. NECK: Supple. CHEST: Speaking in full sentences. No respiratory distress. HEART: Regular rate and rhythm. . ABDOMEN: Obese/protubererant but Soft, nondistended. : Left CVA tenderness. No CVA tenderness R. EXTREMITIES: Normal range of motion. No lower extremity edema. SKIN: Warm, dry, no rash. NEURO: No focal deficits. Alert and oriented x3. PSYCH: Normal mood and affect. Course Vital Signs Vital signs: Vital Signs Temperature 97 F L 10/24/24 23:37 Pulse Rate 96 10/24/24 23:37 Respiratory Rate 16 10/24/24 23:37 Blood Pressure 179/128 H 10/24/24 23:37 Pulse Oximetry 100 10/24/24 23:37 Oxygen Delivery Room Air 10/24/24 23:37 Temperature 97.9 F 10/25/24 08:57 Pulse Rate 68 10/25/24 08:57 Respiratory Rate 16 10/25/24 08:57 Blood Pressure 158/110 H 10/25/24 08:57 Pulse Oximetry 98 10/25/24 08:57 Oxygen Delivery Room Air 10/24/24 23:37 MDM - Female Genitourinary MDM Narrative Medical decision making narrative: Patient presents with left flank pain. History of multiple episodes of kidney stones and she recently underwent lithotripsy and surgical procedure with Dr. Gonzalez for ureteral stone on the right. In the emergency department she is afebrile with vital signs notable for hypertension although she does state that she has underlying hypertension and she was unable to take her beta soila. Isolated ALT elevation. Has been noted previously. Hematuria on urinalysis. Hemoglobin mildly elevated, likely due to a degree of hemoconcentration. Negative test. CT scan with renal calculi but based on this location the should not be painful. Patient reassessed approximately 6:45 a.m.. She states the nausea is gone. The pain is improving although not yet resolved. Patient lists an allergy to ketorolac. Will give acetaminophen and a small dose of Valium. Patient also remains hypertensive. Her home antihypertensives are ordered given it is now morning. Patient reassessed approximately 8 a.m.. She continues to state pain is still present although better. Now states it feels like it is in her LLQ, at my bladder. Will given another dose of Dilaudid while await over read of CT scan. Will also give Bentyl in case this is related GI tract spasm/cramping and a dose of Pyridium. Called radiologist to request this read be performed and discussed that she was continuing to have pain despite initial read being only renal calculi bilaterally. Read as a calcification external to/adjacent to ureter. However, out of an abundance of caution and given patient symptomatic, will treat as ureteral stone. Patient noticed she has plenty of tamsulosin at home. Analgesic meciation and Zofran prescribed. She has a follow-up appointment already scheduled with Dr. Gonzalez on Saturday. Differential Diagnosis Differential diagnosis: Likely urinary tract infection, ovarian cyst, ruptured ovarian cyst, cystitis and other (Kidney stone/ureteral stone, pyelonephritis, constipation) Lab Data Attestation: I reviewed the patient's lab results. 10/25/24 01:43 10/25/24 01:43 Labs: Lab Results 10/25/24 Range/Units 01:43 WBC 8.4 (4.5-10.0) K/mm3 RBC 4.93 (4.2-5.4) M/mm3 Hgb 15.1 H (12.0-15.0) g/dL Hct 43.1 (37.0-47.0) % MCV 87.4 (80-100) fl MCH 30.6 (26-34) pg MCHC 35.0 (32-36) g/dl RDW 12.6 (11.5-14.5) % Plt Count 237 (150-375) k/mm3 MPV 9.1 (7.4-10.4) fl Immature Gran % (Auto) 0.2 (0-0.5) % Neut % (Auto) 50.5 (45.5-73.1) % Lymph % (Auto) 33.6 (18.3-44.2) % [place]anan % (Auto) 12.3 H (2.6-8.5) % Eos % (Auto) 2.9 (0-4.4) % Baso % (Auto) 0.5 (0.2-1.2) % Lymph # (Auto) 2.81 (0.9-3.2) K/mm3 [place] # (Auto) 1.0 H (0.1-0.6) K/mm3 Eos # (Auto) 0.2 (0-0.3) K/mm3 Baso # (Auto) 0.0 (0.0-0.1) K/mm3 Abs Immat Gran (auto) 0.02 (0.00-0.031) K/mm3 Absolute Neuts (auto) 4.2 (1.3-6.7) K/mm3 Absolute Nucleated RBC 0.000 (0.0-0.012) K/mm3 Nucleated RBC % 0.0 (0.0-0.2) % Sodium 138 (137-145) mmol/L Potassium 3.8 (3.4-5.0) mmol/L Chloride 103 (98-107) mmol/L Carbon Dioxide 24 (22-30) mmol/L Anion Gap 11 (4-12) mmol/L BUN 14 (7-17) mg/dL Creatinine 0.59 L (0.7-1.0) mg/dL Estim Creat Clear Calc 103 ml/min Estimated GFR > 60 (59 - ) Glucose 98 (65-110) mg/dL Calcium 9.4 (8.4-10.2) mg/dL Total Bilirubin 0.4 (0.2-1.3) mg/dL AST 35 (14-36) U/L ALT 47 H (6-35) U/L Alkaline Phosphatase 86 (38-126) U/L Total Protein 8.0 (6.3-8.2) g/dL Albumin 4.5 (3.5-5.1) g/dL Lipase 82 (23-300) U/L Urine Color Yellow (Yellow) Urine Appearance Clear (Clear) Urine pH 7.0 (5.0-9.0) Ur Specific [place] 1.012 (1.001-1.035) Urine Protein Negative (Negative) mg/dL Urine Glucose (UA) Negative (Negative) mg/dL Urine Ketones Negative (Negative) mg/dL Ur Blood (Man) Non-hemolyzed trace H (Negative) Urine Nitrate Negative (Negative) Urine Bilirubin Negative (Negative) Urine Urobilinogen 0.2 (<2.0) mg/dL Leukocyte Esterase Rfl Negative (Negative) ALEKSANDRA/UL Urine RBC 6-10 H (0-2) /hpf Urine WBC 0-5 (0-3) /hpf Ur Squamous Epith Cells None seen (Few) /hpf Urine Bacteria None seen /hpf Urine Casts 0-2 POC Urine HCG, Qual Negative (Negative) Imaging Data Attestation: I personally reviewed and interpreted this imaging study as follows: My impression: I do appreciate kidney stones. No significant stool burden on left hemipelvis on my independent interpretation of CT scan Radiologist's impression: Stat Rad CT abd/pelvis: Bilateral obstructing renal calculi measuring up to 3 mm. No hydronephrosis or ureteral calculi. IMPRESSION: 1. Calcification seen near to the mid right ureter most likely outside the ureter. Minimal fullness of the right renal pelvis. Follow-up advised. 2. Bilateral kidney tiny stones. 3. Hepatomegaly. Discharge Plan Discharge Clinical Impression: Elevated ALT measurement, Bilateral renal stones, Hypertension, Left flank pain, Hepatomegaly, Abnormal computed tomography of abdomen and pelvis Patient Disposition: Home, Self-Care Condition: Stable Instructions: Antibiotic Form, Kidney Stones (ED), Narcotic Safety (ED), How to Strain Your Urine (ED), Hypertension (ED), Flank Pain (ED), Safe Disposal of Narcotics (ED) Additional Instructions: As we discussed, you do have evidence of kidney stones on both sides but they are in the kidneys themselves which tend not to be painful. It is safe to take a maximum of 4000 mg per day of acetaminophen/Tylenol. Given the questionable finding of calcification at/adjacent to the ureter, and that your symptoms otherwise sound consistent with ureteral stone, will treat as such. Prescribing opiate medication but remember that each of these contain 325mg acetaminophen/tylenol so take that into account so you don't accidentally overdose. Keep her follow-up appointment coming up on Saturday that is already scheduled with Dr. Gonzalez. Return to the emergency department with any new or worsening symptoms. Given your high blood pressure, you received your morning dose of your home blood pressure medications so no need to take them again this morning. Follow up with your primary care for continued management of this and otherwise take your medications as prescribed. Although no evidence of urinary tract infection, you were noting pain with urination and at your bladder. Pyridium/phenazopyridine can help with the pain . It can discolor your urine and tears (turn them orange). Do not wear contact lenses while taking this medication. You already receive a dose of this in the ED. Patient Language: Burundian Prescriptions: New acetaminophen 500 mg capsule 1,000 mg PO Q6H PRN (Reason: pain) Qty: 30 0RF phenazopyridine 100 mg tablet 100 mg PO TID PRN (Reason: pain) 2 Days Qty: 5 0RF Rx Instructions: after meals; received first dose in ED 3/16 AM hydrocodone-acetaminophen 5-325 mg tablet 1 tablet PO Q8H PRN (Reason: pain) Qty: 10 0RF ondansetron 4 mg tablet,disintegrating 4 mg PO Q8H PRN (Reason: nausea and vomiting) Qty: 7 0RF No Action multivitamin Tablet 1 tablet PO DAILY pregabalin 150 mg capsule 150 mg PO Q8H PRN (Reason: pain) ondansetron 4 mg tablet,disintegrating 4 mg PO Q8H Qty: 14 0RF hydrochlorothiazide 25 mg tablet 25 mg PO DAILY nebivolol [Bystolic] 10 mg tablet 10 mg PO DAILY cephalexin 500 mg capsule 500 mg PO Q12H Qty: 10 0RF hydrocodone-acetaminophen 5-325 mg tablet 1 tablet PO Q8H PRN (Reason: pain) Qty: 10 0RF tamsulosin 0.4 mg capsule 0.4 mg PO DAILY Qty: 14 0RF losartan 50 mg tablet 50 mg PO BID Qty: 180 0RF Follow-up/Referrals: Maximino Gonzalez MD [Physician] - (urology) Lucas Carter DO [Primary Care Provider] - Stand Alone Forms: Work/School Release IP Time of Disposition: 07:21
[2024-10-25] MEDS: ONDANSETRON INJ 4 MG/2 ML VIAL IV PUSH (04:46)
[2024-10-25] MEDS: HYDROmorphone HCL INJ (*CRX) 1 MG/ML SYR 0.5 MG IV PUSH (04:46)
[2024-10-25] MEDS: ACETAMINOPHEN 500 MG TABLET 1000 MG PO (07:22)
[2024-10-25] MEDS: diazePAM INJ (*CRX) 10 MG/2 ML SYRINGE 2.5 MG IV PUSH (07:23)
--- NOTE | 2024-10-25 07:34 | PC.NURSE ---
Assumed care of pt. Pt c/o pain to left flank, stabbing in nature. Pt remains hypertensive. Dr. Oates aware & orders received.
[2024-10-25] MEDS: hydroCHLOROthiazide 25 MG TABLET PO (07:42)
[2024-10-25] MEDS: NEBIVOLOL HCL 5 MG TABLET 10 MG PO (07:42)
[2024-10-25] MEDS: LOSARTAN POTASSIUM 50 MG TABLET PO (07:42)
[2024-10-25] MEDS: DICYCLOMINE HCL 10 MG CAPSULE 20 MG PO (08:10)
[2024-10-25] MEDS: HYDROmorphone HCL INJ (*CRX) 1 MG/ML SYR IV PUSH (08:11)
[2024-10-25] MEDS: TAMSULOSIN HCL 0.4 MG CAPSULE PO (08:33)
[2024-10-25] MEDS: PHENAZOPYRIDINE HCL 100 MG TABLET PO (08:33)
== END 2024-10-25 08:57 | disposition home or self-care (01) ==
PROVIDERS: Physician Assistant; Emergency Provider Student in an Organized Health Care Education/Training Program; PCP Internal Medicine
DX: N20.0 Calculus of kidney (principal); R74.01 Elevation of levels of liver transaminase levels; R16.0 Hepatomegaly, not elsewhere classified; I10 Essential (primary) hypertension; R93.41 Abnormal radiologic findings on diagnostic imaging of renal pelvis, ureter, or bladder; E66.9 Obesity, unspecified; Z68.31 Body mass index [BMI] 31.0-31.9, adult; K21.9 Gastro-esophageal reflux disease without esophagitis; G47.53 Recurrent isolated sleep paralysis; F32.A Depression, unspecified; F17.210 Nicotine dependence, cigarettes, uncomplicated; Z87.442 Personal history of urinary calculi; Z90.49 Acquired absence of other specified parts of digestive tract; Z90.710 Acquired absence of both cervix and uterus; Z79.899 Other long term (current) 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
CPT/HCPCS: 36415; 74176; 80053; 81003; 81025; 83690; 85025; 96374; 96375; 96376; 99284; A9270; J1171; J2405; J3360

== ENCOUNTER 2024-10-30 19:46 | Emergency (ER) | payer MEDICAID, SELFPAY ==
[2024-10-30] VITALS (10 sets, daily range): BP systolic 161–177; BP diastolic 107–131; PULSE 82–87; RESP 18–20; TEMP 36.6–36.7; O2SAT 97–100
--- NOTE | ~2024-10-30 | XR_ITS ---
Exam: Abdomen 1V HISTORY: concern for kidney stone, multiple recent CT scans COMPARISON: 10/25/2024 TECHNIQUE: Supine images of the abdomen FINDINGS: Bowel gas pattern is non-obstructive. There is no free air or deep sulci. No pathologic calcifications are seen. Clips projecting over the right upper quadrant consistent with prior cholecystectomy. Fecal stasis projects over the mid abdomen, to the left of midline, precluding adequate evaluation fo r the presence or absence of left renal calculi. On CT examination dated 10/25/2024, a 2 mm calculus was demonstrated in the lower pole of the left kid steve and a 4 mm calculus was demonstrated in the upper pole. Bones and soft tissues are unremarkable. IMPRESSION: Fecal stasis precludes adequate evaluation for the presence or absence of renal calculi, as detailed above. Reviewed, dictated and finalized at location A.
--- NOTE | ~2024-10-30 | CT_ITS ---
CLINICAL INDICATION: Left flank pain COMPARISON: 10/25/2024. TECHNIQUE: Multiple contiguous axial images of the abdomen and pelvis were performed following the ad ministration of with 100 mL Omnipaque-350 intravenous contrast The dose-length product (DLP) was 668.33 mGy-cm. Automated exposure control and iterative reconstruction technique were employed. FINDINGS/OBSERVATIONS: Visualized lower thorax: The bilateral lung bases are clear. The heart is of normal size, without pericardial effusion. Small hiatal hernia is present. Liver: The liver demonstrates homogeneously decreased enhancement (consistent with fatty infiltration) and i s enlarged measuring 22 cm in longitudinal dimension. Gallbladder and biliary system: The gallbladder is surgically absent Pancreas: The pancreas enhances homogeneously without ductal dilatation. Spleen: The spleen enhances homogeneously and is not enlarged measuring 11 cm in longitudinal dimension. Kidneys: The bilateral kidneys enhance symmetrically without hydronephrosis or obstructing renal calculi. Multiple nonobstructing stones within the bilateral kidneys, unchanged from 10/25/2024 2 mm calculus within the lower pole left kidney. 4 mm calculus within the upper pole of the left kidney. 3 mm calculus within the upper pole of the right kidney Adrenal glands: Unremarkable. Gastrointestinal tract: Rectosigmoid diverticulosis without surrounding inflammatory change. Appendix: The appendix is not definitively visualized. However, no pericecal inflammatory change is identified suggest the presence of acute appendicitis. Vasculature: Unremarkable. Lymph nodes: No pathologically enlarged or morphologically suspicious lymph nodes within the retroperitoneum or at the root of the mesentery. Pelvic structures: The bladder is decompressed and otherwise unremarkable. The uterus is either atrophic or surgically absent. Body wall and musculoskeletal: Small fat-containing umbilical hernia. No significant degenerative disease within the lower thoracic or lumbosacral spine. IMPRESSION: No obstructive uropathy. Redemonstration of nonobstructing 2, 3 and 4 mm calculi within the bilateral kidneys. Reviewed, dictated and finalized at location A. IMPRESSION: No obstructive uropathy. Redemonstration of nonobstructing 2, 3 and 4 mm calculi within the bilateral ki dneys.
--- OUTSIDE RECORDS SUMMARY | 2024-10-30 19:48 | XMS_ITS | CONTINUITY OF CARE DOCUMENT ---
Author Name sylviaisabelhugo Address Unknown Organization [facility] Address [address] [place] [address] Phone [phone] Care Team Providers Care Windows Consultant Name Role Phone William CURIEL, Herlinda Unavailable [phone] SHAWNEE CURIEL, NABIL Schmidt Unavailable [phone] INSURANCE PROVIDERS Payer name Policy type / Coverage type Bj red libertarian [place] [employer] MEDICA[employer] Medicaid [id number] [facility] [id number]
--- OUTSIDE RECORDS SUMMARY | 2024-10-30 19:48 | XMS_ITS | Clinical Summary ---
Author Organization [facility] al Address [address] [place] [address] Care Team Providers Care Oil Gas And Pipe Tester Name Role Phone Lucas Carter DO Primary Care Provider [phone] Allergies Active Allergy Reactions Criticality Noted Date Comments Hydralazine Headache,Vomiting Low 01/21/2024 Ketorolac Hives,Itching Medium 10/17/2017 Tramadol Hives,Urticaria Medium 08/27/2016 Medications omeprazole (PriLOSEC) 20 mg capsuleIndications :Treatment of Non-Bleeding Gastric Disorder Take 1 capsule (20 mg total) by mouth cashier checker 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 Active MULTIVIT-MINERALS/ FERROUS FUM (MULTI VITAMIN ORAL)Indications:h ealth Take 1 tablet by mouth cashier checker 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 Active ondansetron ODT (ZOFRAN-ODT) 4 [...] 1 tablet (25 mg total) by mouth cashier checker 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 Active nebivoloL (BYSTOLIC) 10 mg [...] Grandfather Beka Sr. Hearing loss Maternal Grandmother [place] Alcohol abuse Mother Lisae Arthritis Mother Melodye COPD Mother Melodye Depression Mother Melodye Hearing loss Mother Melodye Obesity Mother Melelizabethe Stroke Paternal Grandfather Dusty Obesity Sister Sarai Relation Name Status Comments Brother Dusty Father Israel Maternal Grandfather Beka Sr. Maternal Grandmother [place] Mother Gretchen Paternal Grandfather Dusty Sister Sarai [...] on file Legal Sex Female 9:06 PM SLICE CUTTING MACHINE OPERATOR Gender Identity Female 10/01/2023 8:44 AM SLICE CUTTING MACHINE OPERATOR Sexual Orientation Straight 10/01/2023 8: 44 AM SLICE CUTTING MACHINE OPERATOR Obstetrics History Para Term AB IAB SAB [...] Comments Blood Pressure 125/82 06/29/2024 10:05 AM SLICE CUTTING MACHINE OPERATOR Pulse 75 06/29/2024 10:05 AM SLICE CUTTING MACHINE OPERATOR Temperature 36.2 C (97.2 F) 06/29/2024 9:28 AM SLICE CUTTING MACHINE OPERATOR Respiratory Rate 15 06/29/2024 10:0 5 AM SLICE CUTTING MACHINE OPERATOR Oxygen Saturation 96% 06/29/2024 10: 05 AM SLICE CUTTING MACHINE OPERATOR Inhaled Oxygen Concentration - - Weight 83.4 kg (183 lb 12.8 oz) 06/29/2024 7:50 AM SLICE CUTTING MACHINE OPERATOR Height 160 cm (5' 3 ) 06/29/2024 7:50 AM SLICE CUTTING MACHINE OPERATOR Body Mass Index 32.56 06/29/2024 7:50 AM SLICE CUTTING MACHINE OPERATOR Plan of Treatment Health Maintenance Due Date [...] on stairs Contact your local community or [facility] for information on exercise, fall prevention programs, or options for improving home safety. Medical Devices Implanted Type Area Side Seam Envelope Machine Operator Device Identifier Shelf Expiration Date Model / Serial / Lot Screw Left: Elbow Insurance IDPA [facility] CHOICE PLUS [facility] IDPA IDPA Advance Directives For more information, please contact: [phone] * Full Code (Latest Code Status on File) Date Activated Date Inactivated Comments 08/15/2022 3:10 PM 08/18/2022 6:09 PM Care Teams Oil Gas And Pipe Tester Relationship Specialty Start Date End Date Lucas Carter DO PCP - General Internal Medicine 08/15/22
--- OUTSIDE RECORDS SUMMARY | 2024-10-30 19:48 | XMS_ITS | Referral Summary ---
Author Organization [facility] al Address [address] [place] [address] Care Team Providers Care Spring Upholsterer Name Role Phone Lucas Carter DO Primary Care Provider [phone] Allergies Active Allergy Reactions Criticality Noted Date Comments Hydralazine Headache,Vomiting Low 01/21/2024 Ketorolac Hives,Itching Medium 10/17/2017 Tramadol Hives,Urticaria Medium 08/27/2016 Medications omeprazole (PriLOSEC) 20 mg capsuleIndications :Treatment of Non-Bleeding Gastric Disorder Take 1 capsule (20 mg total) by mouth tour consultant 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 Active MULTIVIT-MINERALS/ FERROUS FUM (MULTI VITAMIN ORAL)Indications:h ealth Take 1 tablet by mouth tour consultant 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 Active ondansetron ODT (ZOFRAN-ODT) 4 [...] 1 tablet (25 mg total) by mouth tour consultant 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 Active nebivoloL (BYSTOLIC) 10 mg [...] on file Legal Sex Female 9:06 PM POWERTRAIN DESIGN ENGINEER Gender Identity Female 10/01/2023 8:44 AM POWERTRAIN DESIGN ENGINEER Sexual Orientation Straight 10/01/2023 8: 44 AM POWERTRAIN DESIGN ENGINEER Last Filed Vital Signs Vital Sign Reading Time Taken Comments Blood Pressure 125/82 06/29/2024 10:05 AM POWERTRAIN DESIGN ENGINEER Pulse 75 06/29/2024 10:05 AM POWERTRAIN DESIGN ENGINEER Temperature 36.2 C (97.2 F) 06/29/2024 9:28 AM POWERTRAIN DESIGN ENGINEER Respiratory Rate 15 06/29/2024 10:0 5 AM POWERTRAIN DESIGN ENGINEER Oxygen Saturation 96% 06/29/2024 10: 05 AM POWERTRAIN DESIGN ENGINEER Inhaled Oxygen Concentration - - Weight 83.4 kg (183 lb 12.8 oz) 06/29/2024 7:50 AM POWERTRAIN DESIGN ENGINEER Height 160 cm (5' 3 ) 06/29/2024 7:50 AM POWERTRAIN DESIGN ENGINEER Body Mass Index 32.56 06/29/2024 7:50 AM POWERTRAIN DESIGN ENGINEER Plan of Treatment Not on file Goals [...] home safety. Medical Devices Implanted Type Area Sports Statistician Device Identifier Shelf Expiration Date Model / Serial / Lot Screw Left: Elbow Insurance IDPA [facility] PLUS [facility] H[facility]PPO Address: [address] [address] [place] [address] [facility] IDPA IDPA Advance Directives For more information, please contact: [phone] * Full Code (Latest Code Status on File) Date Activated Date Inactivated Comments 08/15/2022 3:10 PM 08/18/2022 6:09 PM Care Teams Spring Upholsterer Relationship Specialty Start Date End Date Lucas Carter DO PCP - General Internal Medicine 08/15/22
--- OUTSIDE RECORDS SUMMARY | 2024-10-30 19:48 | XMS_ITS | Clinical Summary ---
Author Organization [facility] Address [address] [place] [address] Care Team Providers Care Kettle Operator Name Role Phone Damian Sadler MD Primary Care Provider [phone] Source Comments [facility],non-owned Affiliates and Associated Physician Practices is amultiple site organization consisting of ambulatory clinics and hospital sitesin [place], [place], [place] and [place]. This disclosure is being madepursuant to the Care Everywhere program and may not contain all information available regarding this patient. Last updated 18.[facility] Allergies Active Allergy Reactions Criticality Noted Date [...] of 2 - PCV) 1998 COVID-19 VACCINE ( - 2023-2 5 season) 2024 INFLUENZA VACCINE [...] Resulting Agency Comment Lab Testing performed at: [facility] [id number] [facility] [id number] Nancy Cotto MD LAB - CHEMISTRY [facility] INSURANCE BILL [address] [place] [address] * (ABNORMAL) COMPREHENSIVE METABOLIC PANEL (02/03/2024 1:03 AM [facility]) BUN 9 7 - 26 mg/dL 02/03/2024 [...] 1.1 - 2.3 02/03/2024 1:45 AM CDT [facility] eGFR by CKD-EPI >90 >=90 mL/min/1.7 3 m2 02/03/2024 1:45 AM CDT [facility] Blood BLOOD SPECIMEN / Unknown Venipuncture / Unknown 02/03/2024 1:03 AM CDT 02/03/2024 1:17 AM CDT Kaylee Reyes MD LAB - CHEMISTRY [facility] [address] [place] [address], [facility] [phone] from Last 3 Months or Most Recently Relevant to Health Maintenance Care Teams Kettle Operator Relationship Specialty Start Date End Date Damian Sadler MD PCP - General Internal Medicine 07/04/16
[2024-10-30 20:03] LABS: Add Urine Microscopic? NO; Appearance Urine Clear (Clear); Bilirubin Urine Negative (Negative); Blood Urine Negative (Negative); Color Urine Yellow (Yellow); Glucose Urine UA Negative (Negative); Ketones Urine Negative (Negative); Leukocyte Esterase Ur Negative LEU/UL (Negative); Nitrate Urine Negative (Negative); Protein Urine Negative (Negative); Specific Grav Ur 1.014 (1.001-1.035); Urobilinogen Urine 0.2 mg/dL (<2.0)
--- OUTSIDE RECORDS SUMMARY | 2024-10-30 20:31 | XMS_ITS | Referral Summary ---
Author Organization [facility] al Address [address] [place] [address] Care Team Providers Care Chain Builder Loom Control Name Role Phone Lucas Carter DO Primary Care Provider [phone] Allergies Active Allergy Reactions Criticality Noted Date Comments Hydralazine Headache,Vomiting Low 01/21/2024 Ketorolac Hives,Itching Medium 10/17/2017 Tramadol Hives,Urticaria Medium 08/27/2016 Medications omeprazole (PriLOSEC) 20 mg capsuleIndications :Treatment of Non-Bleeding Gastric Disorder Take 1 capsule (20 mg total) by mouth patient care associate 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 Active MULTIVIT-MINERALS/ FERROUS FUM (MULTI VITAMIN ORAL)Indications:h ealth Take 1 tablet by mouth patient care associate 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 Active ondansetron ODT (ZOFRAN-ODT) 4 [...] 1 tablet (25 mg total) by mouth patient care associate 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 Active nebivoloL (BYSTOLIC) 10 mg [...] on file Legal Sex Female 9:06 PM ORGANIC CHEMISTRY TEACHER Gender Identity Female 10/01/2023 8:44 AM ORGANIC CHEMISTRY TEACHER Sexual Orientation Straight 10/01/2023 8: 44 AM ORGANIC CHEMISTRY TEACHER Last Filed Vital Signs Vital Sign Reading Time Taken Comments Blood Pressure 125/82 06/29/2024 10:05 AM ORGANIC CHEMISTRY TEACHER Pulse 75 06/29/2024 10:05 AM ORGANIC CHEMISTRY TEACHER Temperature 36.2 C (97.2 F) 06/29/2024 9:28 AM ORGANIC CHEMISTRY TEACHER Respiratory Rate 15 06/29/2024 10:0 5 AM ORGANIC CHEMISTRY TEACHER Oxygen Saturation 96% 06/29/2024 10: 05 AM ORGANIC CHEMISTRY TEACHER Inhaled Oxygen Concentration - - Weight 83.4 kg (183 lb 12.8 oz) 06/29/2024 7:50 AM ORGANIC CHEMISTRY TEACHER Height 160 cm (5' 3 ) 06/29/2024 7:50 AM ORGANIC CHEMISTRY TEACHER Body Mass Index 32.56 06/29/2024 7:50 AM ORGANIC CHEMISTRY TEACHER Plan of Treatment Not on file [...] home safety. Medical Devices Implanted Type Area Etl Bi Developer Device Identifier Shelf Expiration Date Model / Serial / Lot Screw Left: Elbow Insurance IDPA [facility] CHOICE PLUS [facility] IDPA IDPA Advance Directives For more information, please contact: [phone] * Full Code (Latest Code Status on File) Date Activated Date Inactivated Comments 08/15/2022 3:10 PM 08/18/2022 6:09 PM Care Teams Chain Builder Loom Control Relationship Specialty Start Date End Date Lucas Carter DO PCP - General Internal Medicine 08/15/22
--- OUTSIDE RECORDS SUMMARY | 2024-10-30 20:31 | XMS_ITS | CONTINUITY OF CARE DOCUMENT ---
Author Name sylviaisabelhugo Address Unknown Organization [facility] Address [address] [place] [address] Phone [phone] Care Team Providers Care Cut Off Tender Glass Name Role Phone William CURIEL, Herlinda Unavailable SHAWNEE CURIEL, NABIL Schmidt Unavailable INSURANCE PROVIDERS Payer name Policy type / Coverage type Bj red democrat ID [employer] MEDICAID Medicaid [id number] [facility] [id number]
--- OUTSIDE RECORDS SUMMARY | 2024-10-30 20:31 | XMS_ITS | Clinical Summary ---
Author Organization [facility] al Address [address] [place] [address] Care Team Providers Care Space Systems Operations Superintendent Name Role Phone Lucas Carter DO Primary Care Provider [phone] Allergies Active Allergy Reactions Criticality Noted Date Comments Hydralazine Headache,Vomiting Low 01/21/2024 Ketorolac Hives,Itching Medium 10/17/2017 Tramadol Hives,Urticaria Medium 08/27/2016 Medications omeprazole (PriLOSEC) 20 mg capsuleIndications :Treatment of Non-Bleeding Gastric Disorder Take 1 capsule (20 mg total) by mouth early childhood associate 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 Active MULTIVIT-MINERALS/ FERROUS FUM (MULTI VITAMIN ORAL)Indications:h ealth Take 1 tablet by mouth early childhood associate 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 Active ondansetron ODT (ZOFRAN-ODT) [...] mg total) by mouth early childhood associate 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 Active nebivoloL (BYSTOLIC) 10 [...] Grandfather Beka Sr. Hearing loss Maternal Grandmother [place] Alcohol abuse Mother Lisae Arthritis Mother Melodye COPD Mother Melodye Depression Mother Melodye Hearing loss Mother Melodye Obesity Mother Melelizabethe Stroke Paternal Grandfather Dusty Obesity Sister Sarai Relation Name Status Comments Brother Dusty Father Israel Maternal Grandfather Beka Sr. Maternal Grandmother [place] Mother Gretchen Paternal Grandfather Dusty Sister Sarai [...] on file Legal Sex Female 9:06 PM [employer] Gender Identity Female 10/01/2023 8:44 AM [employer] Sexual Orientation Straight 10/01/2023 8: 44 AM [employer] Obstetrics History Para Term AB IAB SAB [...] Comments Blood Pressure 125/82 06/29/2024 10:05 AM [employer] Pulse 75 06/29/2024 10:05 AM [employer] Temperature 36.2 C (97.2 F) 06/29/2024 9:28 AM [employer] Respiratory Rate 15 06/29/2024 10:0 5 AM [employer] Oxygen Saturation 96% 06/29/2024 10: 05 AM [employer] Inhaled Oxygen Concentration - - Weight 83.4 kg (183 lb 12.8 oz) 06/29/2024 7:50 AM [employer] Height 160 cm (5' 3 ) 06/29/2024 7:50 AM [employer] Body Mass Index 32.56 06/29/2024 7:50 AM [employer] Plan of Treatment Health Maintenance Due Date [...] on stairs Contact your local community or [facility] for information on exercise, fall prevention programs, or options for improving home safety. Medical Devices Implanted Type Area Taxi Proprietor Device Identifier Shelf Expiration Date Model / Serial / Lot Screw Left: Elbow Insurance IDPA [facility] CHOICE PLUS [facility] IDPA IDPA Advance Directives For more information, please contact: [phone] * Full Code (Latest Code Status on File) Date Activated Date Inactivated Comments 08/15/2022 3:10 PM 08/18/2022 6:09 PM Care Teams Space Systems Operations Superintendent Relationship Specialty Start Date End Date Lucas Carter DO PCP - General Internal Medicine 08/15/22
--- OUTSIDE RECORDS SUMMARY | 2024-10-30 20:31 | XMS_ITS | Clinical Summary ---
Author Organization [facility] Address [address] [place] [address] Care Team Providers Care Yard Jacker Name Role Phone Damian Sadler MD Primary Care Provider [phone] Source Comments [facility],non-owned Affiliates and Associated Physician Practices is amultiple site organization consisting of ambulatory clinics and hospital sitesin [place], [place], [place] and [place]. This disclosure is being madepursuant to the Care Everywhere program and may not contain all information available regarding this patient. Last updated 18.[facility] Allergies Active Allergy Reactions Criticality Noted Date [...] Resulting Agency Comment Lab Testing performed at: [facility] [place] [id number] [facility] [id number] Nancy Cotto MD LAB - CHEMISTRY TOBY BILLY [facility] INSURANCE BILL [address] [place] [address] * (ABNORMAL) COMPREHENSIVE METABOLIC PANEL (02/03/2024 1:[address] [facility]) BUN 9 7 - 26 mg/dL 02/03/2024 1:45 AM [facility] Creatinine 0.64 0.56 - 0.96 mg/dL 02/03/2024 1:45 AM [facility] Sodium 139 136 - 145 mmol/L 02/03/2024 1:45 AM [facility] Potassium 3.4(L) 3.5 - 4.5 mmol/L 02/03/2024 1:45 AM [facility] Chloride 107 98 - 107 mmol/L 02/03/2024 1:45 AM [facility] CO2 21(L) 22 - 29 mmol/L 02/03/2024 1:45 AM [facility] Glucose 78 70 - 115 mg/dL 02/03/2024 1:45 AM [facility] Calcium 9.9 8.4 - 10.2 mg/dL 02/03/2024 1:45 AM [facility] Protein Total 7.7 6.0 - 8.3 g/dL 02/03/2024 1:45 AM [facility] Albumin 4.4 3.4 - 5.0 g/dL 02/03/2024 1:45 AM [facility] Bilirubin Total 0.4 0.2 - 1.2 mg/dL 02/03/2024 1:45 AM [facility] Alkaline Phosphatase 81 40 - 150 U/L 02/03/2024 1:45 AM [facility] ALT 58(H) 5 - 55 U/L 02/03/2024 1:45 AM [facility] AST 33 5 - 34 U/L 02/03/2024 1:45 AM [facility] Anion Gap 11 6 - 16 02/03/2024 1:45 AM [facility] BUN/Creatinine Ratio 14 7 - 23 02/03/2024 1:45 AM [facility] Osmolality Calculated 286 275 - 295 mOsm/kg 02/03/2024 1:45 AM [facility] Albumin/Globulin Ratio 1.3 1.1 - 2.3 02/03/2024 1:45 AM CDT [facility] eGFR by CKD-EPI >90 >=90 mL/min/1.7 3 m2 02/03/2024 1:45 AM CDT [facility] Blood BLOOD SPECIMEN / Unknown Venipuncture / Unknown 02/03/2024 1:03 AM CDT 02/03/2024 1:17 AM CDT Kaylee Reyes MD LAB - CHEMISTRY TOBY BILLY [facility] [address] [place] [address], [facility] [phone] from Last 3 Months or Most Recently Relevant to Health Maintenance Care Teams Yard Jacker Relationship Specialty Start Date End Date Damian Sadler MD PCP - General Internal Medicine 07/04/16
[2024-10-30] MEDS: HYDROcodone/acetaminophen (*CRX) 5-325 MG TABLET 1 TAB PO (21:30)
--- NOTE | 2024-10-30 21:46 | ED.FEMALEGU ---
HPI - Female Genitourinary General Chief complaint: Urogenital-Female Stated complaint: Left side flank pain Time Seen by Provider: 10/30/24 20:05 History of Present Illness HPI Narrative: Patient is a 44-year-old female who presents to the ER with complaints of left flank pain is been going on for the past 3 days. She has significant history of kidney stones. Patient recently had a lithotripsy on her right side. She presents to the ER today with increased pain along her left flank. Patient reports she is supposed to see Dr. Gonzalez this coming Saturday, although a note from her most recent visit indicates she was supposed to see him this past week. She also reports she finished a dose of Keflex 3 days ago, but she also reported this and her most recent visit on October 24, 2024 and no new antibiotic was prescribed at that time. Patient reports she has a follow-up appointment with her primary care provider on November 10, 2024. She endorses a history of kidney stones but no other significant medical history relevant to this ER visit. Patient denies any recent fevers, vaginal discharge, pelvic pain, rashes, urinary continence, concern of . Related Data Home Medications ?Medication ?Instructions ?Recorded ?Confirmed ?Last Taken ?Type multivitamin 1 tablet PO DAILY 04/04/22 10/21/24 10/20/24 History pregabalin 150 mg capsule 150 mg PO Q8H PRN pain 02/21/24 10/21/24 10/20/24 History hydrochlorothiazide 25 mg tablet 25 mg PO DAILY 10/21/24 10/21/24 10/20/24 History nebivolol 10 mg tablet (Bystolic) 10 mg PO DAILY 10/21/24 10/21/24 10/20/24 History Allergies Allergy/AdvReac Type Severity Reaction Status Date / Time ketorolac (From Toradol) Allergy Headache,Rash, Verified 10/25/24 07:33 Swollen tongue tramadol AdvReac Mild VOMITING/HE Verified 10/25/24 07:33 ADACHE hydralazine AdvReac Headache Verified 10/25/24 07:33 Review of Systems Review of Systems: All systems reviewed & are unremarkable except as noted in HPI and below PMFSH Past Medical History Medical History Hypertension Gastroesophageal reflux disease Sleep paralysis, recurrent isolated Smoker Obesity Depression Multiple kidney stones Seasonal allergies Surgical History Surgical History H/O ureteroscopy 10/21/24 on the right due to proximal ureteral stone; Dr Gonzalez History of laparoscopic cholecystectomy on 04/25/23 PDC History of tubal ligation History of endometrial ablation (2009) History of hysterectomy (2015) History of open reduction and internal fixation (ORIF) procedure (2012) Left elbow. History of section 2000, 2001, 2009 Status post cystoscopy with ureteral stent placement Family History Family History Mother Diabetes mellitus Depression Alcoholism Father Hypertension Sibling Congenital heart disease Son Asthma Grandparent Diabetes mellitus Cerebrovascular accident Social History Social History Social History: Surrogate medical decision maker: Bang Luke, spouse. Code status: Full code. Smoking packs per day: 0.5 Smoking cigarettes per day: 10.0 Years smoked: 32 Smoking pack-years: 16.00 Smoking status: Current every day smoker Tobacco type: cigarettes Alcohol intake: never Alcohol use details: Social alcohol use in moderation. Substance use: never Substance use type: does not use Do You Feel Safe in your Home?: Yes Lack of Transportation: No Lack of Food: Never True Current Housing: I Have Housing Concerned About Future Housing: No Difficulty Paying Gas/Electric Bills: No Difficulty Paying for Meds: No Currently Unemployed: No Education: High School Diploma/GED Difficulty w/ Childcare or Family Care: No Living arrangements: with family Spiritual care concerns: No Exam Narrative: GENERAL: Well appearing, well-nourished, non-toxic, in no acute distress. HEAD: Normocephalic, atraumatic. NECK: Supple. No adenopathy, no masses. RESPIRATORY: Airway patent, respirations nonlabored. Clear to auscultation bilaterally, no rales, rhonchi, wheezing. CARDIOVASCULAR: Regular rate and rhythm without murmurs, rubs, or gallops. Peripheral pulses 2+ and equal bilaterally. ABDOMINAL: Soft, tender L flank, nondistended, no hepatosplenomegaly. Normoactive BS. MUSCULOSKELETAL: Moves all extremities. Strength/ROM intact without gross deformities. SKIN: Warm, dry, normal color. No rashes. NEURO: A&O X3. Speech clear. Cranial nerves II-XII intact. No ataxic movements. PSYCHIATRIC: Appropriate mood and affect. Normal interaction. Course Vital Signs Vital signs: Vital Signs Temperature 36.6 C 10/30/24 19:47 Pulse Rate 87 10/30/24 19:47 Respiratory Rate 20 10/30/24 19:47 Blood Pressure 161/107 H 10/30/24 19:47 Pulse Oximetry 100 10/30/24 19:47 Oxygen Delivery Room Air 10/30/24 19:47 Temperature 36.7 C 10/30/24 21:27 Pulse Rate 86 10/30/24 23:01 Respiratory Rate 19 10/30/24 23:01 Blood Pressure 177/131 H 10/30/24 23:01 Pulse Oximetry 97 10/30/24 23:01 Oxygen Delivery Room Air 10/30/24 19:47 MDM - Female Genitourinary MDM Narrative Medical decision making narrative: Patient is a 44-year-old female who presents to the ER with complaints of left flank pain is been going on for the past 3 days. She has significant history of kidney stones. Patient recently had a lithotripsy on her right side. She presents to the ER today with increased pain along her left flank. Patient reports she is supposed to see Dr. Gonzalez this coming Saturday, although a note from her most recent visit indicates she was supposed to see him this past week. She also reports she finished a dose of Keflex 3 days ago, but she also reported this and her most recent visit on October 24, 2024 and no new antibiotic was prescribed at that time. Patient reports she has a follow-up appointment with her primary care provider on November 10, 2024. She endorses a history of kidney stones but no other significant medical history relevant to this ER visit. Patient denies any recent fevers, vaginal discharge, pelvic pain, rashes, urinary continence, concern of . Labs Ordered: CBC, CMP, UA Imaging Ordered: KUB, CT abdomen pelvis Medications Ordered: Korbel p.o., 1 L normal saline IV bolus Results: Pt's CT abdomen/pelvis indicates he bilateral kidneys enhance symmetrically without hydronephrosis or obstructing renal calculi. Multiple nonobstructing stones within the bilateral kidneys, unchanged from 10/25/2024 2 mm calculus within the lower pole left kidney. 4 mm calculus within the upper pole of the left kidney. 3 mm calculus within the upper pole of the right kidney Diagnosis: renal colic, nonobstructing kidney stones Consults: urology (outpatient) Patient Education/Shared MDM: Results of blood work and imaging shared with patient. She endorses improvement following medication administration. 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 She may take Tylenol and ibuprofen together short term for pain relief, which can be as effective as a narcotic when taken together. Patient strongly advised to maintain hydration status upon discharge and follow-up with her urologist on Saturday. Pt's blood pressure continues to remain elevated. She will be given her morning dose of blood pressure medications before she is discharged home. Pt was STRONGLY advised to call her PCP on Saturday to re-evaluate her blood pressure medication regime. She will be discharged home with a prescription for Pyridium and Zofran. Strict return precautions provided. Patient verbalized understanding is in agreement with plan. Vital signs stable at time of discharge. All questions answered. Differential Diagnosis Differential diagnosis: Likely urinary tract infection, cystitis, dysmenorrhea and other (kidney stone) Lab Data Attestation: I reviewed the patient's lab results. 10/30/24 22:56 10/30/24 22:56 Labs: Lab Results 10/30/24 10/30/24 10/30/24 Range/Units 19:55 22:55 22:56 WBC 8.5 (4.5-10.0) K/mm3 RBC 5.16 (4.2-5.4) M/mm3 Hgb 15.7 H (12.0-15.0) g/dL Hct 44.7 (37.0-47.0) % MCV 86.6 (80-100) fl MCH 30.4 (26-34) pg MCHC 35.1 (32-36) g/dl RDW 12.4 (11.5-14.5) % Plt Count 285 (150-375) k/mm3 MPV 9.0 (7.4-10.4) fl Immature Gran % (Auto) 0.4 (0-0.5) % Neut % (Auto) 54.3 (45.5-73.1) % Lymph % (Auto) 34.7 (18.3-44.2) % [place] % (Auto) 8.4 (2.6-8.5) % Eos % (Auto) 1.5 (0-4.4) % Baso % (Auto) 0.7 (0.2-1.2) % Lymph # (Auto) 2.93 (0.9-3.2) K/mm3 [place] # (Auto) 0.7 H (0.1-0.6) K/mm3 Eos # (Auto) 0.1 (0-0.3) K/mm3 Baso # (Auto) 0.1 (0.0-0.1) K/mm3 Abs Immat Gran (auto) 0.03 (0.00-0.031) K/mm3 Absolute Neuts (auto) 4.6 (1.3-6.7) K/mm3 Absolute Nucleated RBC 0.000 (0.0-0.012) K/mm3 Nucleated RBC % 0.0 (0.0-0.2) % Sodium 138 (137-145) mmol/L Potassium 3.8 (3.4-5.0) mmol/L Chloride 106 (98-107) mmol/L Carbon Dioxide 18 L (22-30) mmol/L Anion Gap 14 H (4-12) mmol/L BUN 12 (7-17) mg/dL Creatinine 0.67 L (0.7-1.0) mg/dL Estim Creat Clear Calc 92 ml/min Estimated GFR > 60 (59 - ) Glucose 91 (65-110) mg/dL Calcium 9.6 (8.4-10.2) mg/dL Total Bilirubin 0.7 (0.2-1.3) mg/dL AST 46 H (14-36) U/L ALT 65 H (6-35) U/L Alkaline Phosphatase 97 (38-126) U/L Total Protein 8.0 (6.3-8.2) g/dL Albumin 4.9 (3.5-5.1) g/dL Urine Color Yellow (Yellow) Urine Appearance Clear (Clear) Urine pH 5.0 (5.0-9.0) Ur Specific [place] 1.014 (1.001-1.035) Urine Protein Negative (Negative) mg/dL Urine Glucose (UA) Negative (Negative) mg/dL Urine Ketones Negative (Negative) mg/dL Ur Blood (Man) Negative (Negative) Urine Nitrate Negative (Negative) Urine Bilirubin Negative (Negative) Urine Urobilinogen 0.2 (<2.0) mg/dL Leukocyte Esterase Rfl Negative (Negative) ALEKSANDRA/UL POC Urine HCG, Qual Negative (Negative) Imaging Data Attestation: I personally reviewed and interpreted this imaging study as follows: Radiologist's impression: Impressions Abdomen X-Ray 10/30/24 22:16 IMPRESSION: Fecal stasis precludes adequate evaluation for the presence or absence of renal calculi, as detailed above. Abdomen/Pelvis CT 10/30/24 23:58 IMPRESSION: No obstructive uropathy. Redemonstration of nonobstructing 2, 3 and 4 mm calculi within the bilateral kidneys. Discharge Plan Discharge Clinical Impression: Renal colic, Kidney stone on right side Patient Disposition: Home, Self-Care Condition: Stable Instructions: Antibiotic Form, Kidney Stones (ED), Narcotic Use Disorder (ED) Additional Instructions: Please return to the ER with any worsening symptoms. Follow-up with your urologist on Saturday as discussed. Take all medications as prescribed, including regularly scheduled medications. Patient Language: Slovenian Prescriptions: New ondansetron 4 mg tablet,disintegrating 4 mg PO Q6H PRN (Reason: nausea and vomiting) Qty: 14 0RF phenazopyridine [Pyridium] 200 mg tablet 200 mg PO TID PRN (Reason: pain) Qty: 20 0RF No Action multivitamin Tablet 1 tablet PO DAILY pregabalin 150 mg capsule 150 mg PO Q8H PRN (Reason: pain) ondansetron 4 mg tablet,disintegrating 4 mg PO Q8H Qty: 14 0RF hydrochlorothiazide 25 mg tablet 25 mg PO DAILY nebivolol [Bystolic] 10 mg tablet 10 mg PO DAILY cephalexin 500 mg capsule 500 mg PO Q12H Qty: 10 0RF hydrocodone-acetaminophen 5-325 mg tablet 1 tablet PO Q8H PRN (Reason: pain) Qty: 10 0RF acetaminophen 500 mg capsule 1,000 mg PO Q6H PRN (Reason: pain) Qty: 30 0RF phenazopyridine 100 mg tablet 100 mg PO TID PRN (Reason: pain) 2 Days Qty: 5 0RF Rx Instructions: after meals; received first dose in ED 3/16 AM hydrocodone-acetaminophen 5-325 mg tablet 1 tablet PO Q8H PRN (Reason: pain) Qty: 10 0RF ondansetron 4 mg tablet,disintegrating 4 mg PO Q8H PRN (Reason: nausea and vomiting) Qty: 7 0RF tamsulosin 0.4 mg capsule 0.4 mg PO DAILY Qty: 14 0RF losartan 50 mg tablet 50 mg PO BID Qty: 180 0RF Follow-up/Referrals: Lucas Carter DO [Primary Care Provider] - Time of Disposition: 01:41
[2024-10-30 22:58] LABS: BEDSIDEPREGUCG Negative (Negative)
[2024-10-30] MEDS: SODIUM CHLORIDE 0.9% IV 1,000 ML 999 ML IV CONT (23:01)
[2024-10-30 23:02] LABS: Basophils Absolute Auto 0.1 K/mm3 (0.0-0.1); Basophils Percent Auto 0.7 % (0.2-1.2); Eosinophils Absolute Auto 0.1 K/mm3 (0-0.3); Eosinophils Percent Auto 1.5 % (0-4.4); Hematocrit 44.7 % (37.0-47.0); Hemoglobin 15.7 g/dL (12.0-15.0); Immature Granulocyte Absolute 0.03 K/mm3 (0.00-0.031); Immature Granulocyte Percent A 0.4 % (0-0.5); Lymphocytes Absolute Auto 2.93 K/mm3 (0.9-3.2); Lymphocytes Percent Auto 34.7 % (18.3-44.2); Mean Corpuscular HGB Conc 35.1 g/dl (32-36); Mean Corpuscular Hemoglobin 30.4 pg (26-34); Mean Corpuscular Volume 86.6 fl (80-100); Monocytes Absolute Auto 0.7 K/mm3 (0.1-0.6); Monocytes Percent Auto 8.4 % (2.6-8.5); Neutrophils Absolute Auto 4.6 K/mm3 (1.3-6.7); Neutrophils Percent Auto 54.3 % (45.5-73.1); Platelet Count Result 285 k/mm3 (150-375); Red Blood Count 5.16 M/mm3 (4.2-5.4); Red Cell Distribution Width 12.4 % (11.5-14.5); White Blood Count 8.5 K/mm3 (4.5-10.0)
--- NOTE | 2024-10-30 23:03 | PC.NURSE ---
care and report given to KHADAR Sandy. all questions answered.
[2024-10-30 23:12] LABS: Alanine Aminotransferase 65 U/L (6-35); Albumin Level 4.9 g/dL (3.5-5.1); Alkaline Phosphatase 97 U/L (38-126); Anion Gap 14 mmol/L (4-12); Aspartate Amino Transferase 46 U/L (14-36); Bilirubin,Total 0.7 mg/dL (0.2-1.3); Blood Urea Nitrogen 12 mg/dL (7-17); Calcium 9.6 mg/dL (8.4-10.2); Carbon Dioxide 18 mmol/L (22-30); Chloride 106 mmol/L (98-107); Estimated CRCL calculation 92 ml/min; Estimated Glomerular Filt Rate > 60; Glucose 91 mg/dL (65-110); Potassium 3.8 mmol/L (3.4-5.0); Sodium 138 mmol/L (137-145)
[2024-10-31] VITALS (13 sets, daily range): BP systolic 188–218; BP diastolic 128–150; O2SAT 94–99
[2024-10-31] MEDS: HYDROmorphone HCL INJ (*CRX) 1 MG/ML SYR 0.5 MG IV PUSH (00:13)
[2024-10-31] MEDS: ONDANSETRON INJ 4 MG/2 ML VIAL IV PUSH (00:13)
[2024-10-31] MEDS: hydroCHLOROthiazide 25 MG TABLET PO (01:42)
[2024-10-31] MEDS: LOSARTAN POTASSIUM 50 MG TABLET PO (01:42)
== END 2024-10-31 02:15 | disposition home or self-care (01) ==
PROVIDERS: Emergency Medicine; Emergency Provider Registered Nurse; PCP Internal Medicine
DX: N20.0 Calculus of kidney (principal); I10 Essential (primary) hypertension; E66.9 Obesity, unspecified; Z68.31 Body mass index [BMI] 31.0-31.9, adult; G47.53 Recurrent isolated sleep paralysis; K21.9 Gastro-esophageal reflux disease without esophagitis; F32.A Depression, unspecified; F17.210 Nicotine dependence, cigarettes, uncomplicated; Z87.442 Personal history of urinary calculi; Z90.49 Acquired absence of other specified parts of digestive tract; Z90.710 Acquired absence of both cervix and uterus; Z79.899 Other long term (current) 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
CPT/HCPCS: 36415; 74018; 74177; 80053; 81003; 81025; 85025; 96361; 96374; 96375; 99284; A9270; J1171; J2405; J7030; Q9967

== ENCOUNTER 2024-11-07 18:11 | Emergency (ER) | payer MEDICAID, SELFPAY ==
--- NOTE | ~2024-11-07 | CT_ITS ---
CLINICAL INDICATION: Flank pain COMPARISON: 10/30/2024. TECHNIQUE: Multiple contiguous axial images of the abdomen and pelvis were performed without the admi nistration of intravenous contrast The dose-length product (DLP) was 267.27 mGy-cm. Automated exposure control and iterative reconstruction technique were employed. FINDINGS/OBSERVATIONS: Visualized lower thorax: Trace left basilar atelectasis. The remainder of the bilateral lung moreno are clear. The heart is of normal size, without pericardial effusion. Small hiatal hernia is present. Liver: The liver demonstrates homogeneous attenuation and is enlarged measuring 22 cm in longitudinal dimens ion. Gallbladder and biliary system: The gallbladder is surgically absent. Pancreas: Limited evaluation of the pancreas secondary to the lack of intravenous contrast. Spleen: The spleen demonstrates homogeneous attenuation and is not enlarged. Kidneys: Redemonstration of a nonobstructing 2 mm calculus within the lower pole of the left kidney. Redemonst ration of a nonobstructing 3 mm calculus within the upper pole of the right kidney. Interval development of a 4 mm calculus within the proximal left ureter. A 3 mm calculus is identified within the distal right ureter, possibly adjacent to and not within, al though today's examination is more convincing than on prior. Limited evaluation of the more distal right and left ureters, with multiple calcifications within the pelvis, not believed to be along the path of either ureter. No discrete hydronephrosis or global enlargement of either kidney is present. Adrenal glands: Unremarkable. Gastrointestinal tract: Colonic diverticulosis without surrounding inflammatory change. Appendix: The appendix is not definitively visualized. However, no pericecal inflammatory change is identified suggest the presence of acute appendicitis. Vasculature: Unremarkable. Lymph nodes: Limited evaluation without intravenous contrast Pelvic structures: The bladder is decompressed, limiting its evaluation Uterus is retroverted and retroflexed. Body wall and musculoskeletal: Small fat-containing umbilical hernia. No significant degenerative disease within the lower thoracic or lumbosacral spine. IMPRESSION: Bilateral partially obstructing ureteral calculi, questionable on the right but definitively on the l eft. Multiple nonobstructing bilateral renal calculi, as detailed above. Reviewed, dictated and finalized at location A. IMPRESSION: Bilateral partially obstructing ureteral calculi, questionable on the right but definitively on the left. Multiple nonobstructing bilateral renal calculi, as detailed above.
--- OUTSIDE RECORDS SUMMARY | 2024-11-07 18:13 | XMS_ITS | Clinical Summary ---
Author Organization [facility] Address [address] [place] [address] Care Team Providers Care Lead Systems Engineer Name Role Phone Damian Sadler MD Primary Care Provider [phone] Source Comments [facility],non-owned Affiliates and Associated Physician Practices is amultiple site organization consisting of ambulatory clinics and hospital sitesin [place] and [place]. This disclosure is being madepursuant to the Care Everywhere program and may not contain all information available regarding this patient. Last updated 18.[facility] Allergies Active Allergy Reactions Criticality Noted Date [...] Resulting Agency Comment Lab Testing performed at: [facility] [id number] [facility] [id number] Nancy Cotto MD LAB - CHEMISTRY TOBY BILLY [facility] INSURANCE BILL [address] [place] [address] * (ABNORMAL) COMPREHENSIVE METABOLIC PANEL (02/03/2024 1:03 AM [facility]) BUN 9 7 - 26 [...] 1.1 - 2.3 02/03/2024 1:45 AM CDT [facility] eGFR by CKD-EPI >90 >=90 mL/min/1.7 3 m2 02/03/2024 1:45 AM CDT [facility] Blood BLOOD SPECIMEN / Unknown Venipuncture / Unknown 02/03/2024 1:03 AM CDT 02/03/2024 1:17 AM CDT Kaylee Reyes MD LAB - CHEMISTRY TOBY BILLY [facility] [address] [place] [address], [facility] [phone] from Last 3 Months or Most Recently Relevant to Health Maintenance Care Teams Lead Systems Engineer Relationship Specialty Start Date End Date Damian Sadler MD PCP - General Internal Medicine 07/04/16
--- OUTSIDE RECORDS SUMMARY | 2024-11-07 18:13 | XMS_ITS | CONTINUITY OF CARE DOCUMENT ---
Author Name [email or web address] Address Unknown Organization [facility] Address [address] [place] [address] Phone [phone] Care Team Providers Care Sales Center Manager Name Role Phone William CURIEL, Herlinda Unavailable SHAWNEE CURIEL, NABIL Schmidt Unavailable [phone] INSURANCE PROVIDERS Payer name Policy type / Coverage type Bj red alliance party ID [employer] Medicaid [id number] [facility] [address] [id number]
[2024-11-07 18:14] VITALS: BP 224/129; PULSE 102; RESP 18; TEMP 36.1; O2SAT 98
[2024-11-07 18:39] VITALS: BP 183/133; PULSE 110; RESP 18; TEMP 36.6; O2SAT 95
[2024-11-07 18:40] LABS: BEDSIDEPREGUCG Negative (Negative)
[2024-11-07 18:43] LABS: Basophils Percent Auto 0.6 % (0.2-1.2); Eosinophils Absolute Auto 0.1 K/mm3 (0-0.3); Hematocrit 41.1 % (37.0-47.0); Hemoglobin 14.5 g/dL (12.0-15.0); Immature Granulocyte Absolute 0.02 K/mm3 (0.00-0.031); Immature Granulocyte Percent A 0.3 % (0-0.5); Lymphocytes Absolute Auto 2.22 K/mm3 (0.9-3.2); Lymphocytes Percent Auto 34.6 % (18.3-44.2); Mean Corpuscular HGB Conc 35.3 g/dl (32-36); Mean Corpuscular Hemoglobin 30.7 pg (26-34); Mean Corpuscular Volume 87.1 fl (80-100); Mean Platelet Volume 9.4 fl (7.4-10.4); Monocytes Absolute Auto 0.5 K/mm3 (0.1-0.6); Neutrophils Absolute Auto 3.5 K/mm3 (1.3-6.7); Neutrophils Percent Auto 54.5 % (45.5-73.1); Platelet Count Result 233 k/mm3 (150-375); Red Blood Count 4.72 M/mm3 (4.2-5.4); Red Cell Distribution Width 12.8 % (11.5-14.5); White Blood Count 6.4 K/mm3 (4.5-10.0)
[2024-11-07 18:48] LABS: Add Urine Microscopic? YES; Appearance Urine Cloudy (Clear); Bacteria Urine 2+ /hpf; Bilirubin Urine Negative (Negative); Blood Urine 3+ (Negative); Color Urine Dark Yellow (Yellow); Glucose Urine UA Negative (Negative); Ketones Urine Trace mg/dL (Negative); Leukocyte Esterase Ur Negative LEU/UL (Negative); Nitrate Urine Negative (Negative); Protein Urine 1+ mg/dL (Negative); RBC Urine 51-100 /hpf (0-2); Specific Grav Ur 1.037 (1.001-1.035); Squamous Epithelial Cell Urine Moderate /hpf (Few); pH Urine 5.5 (5.0-9.0)
[2024-11-07 18:56] LABS: Alanine Aminotransferase 72 U/L (6-35); Albumin Level 4.5 g/dL (3.5-5.1); Alkaline Phosphatase 91 U/L (38-126); Anion Gap 12 mmol/L (4-12); Aspartate Amino Transferase 58 U/L (14-36); Bilirubin,Total 0.5 mg/dL (0.2-1.3); Blood Urea Nitrogen 15 mg/dL (7-17); Calcium 9.1 mg/dL (8.4-10.2); Carbon Dioxide 20 mmol/L (22-30); Chloride 106 mmol/L (98-107); Estimated CRCL calculation 101 ml/min; Estimated Glomerular Filt Rate > 60; Glucose 139 mg/dL (65-110); Potassium 3.3 mmol/L (3.4-5.0); Sodium 138 mmol/L (137-145)
[2024-11-07] MEDS: ONDANSETRON INJ 4 MG/2 ML VIAL IV PUSH (19:20)
[2024-11-07] MEDS: HYDROmorphone HCL INJ (*CRX) 1 MG/ML SYR IV PUSH ×2 (19:21→20:22)
--- OUTSIDE RECORDS SUMMARY | 2024-11-07 19:21 | XMS_ITS | Clinical Summary ---
Author Organization [facility] al Address [address] [place] [address] Care Team Providers Care Lottery Sales Clerk Name Role Phone Lucas Carter DO Primary Care Provider [phone] Allergies Active Allergy Reactions Criticality Noted Date Comments Hydralazine Headache,Vomiting Low 01/21/2024 Ketorolac Hives,Itching Medium 10/17/2017 Tramadol Hives,Urticaria Medium 08/27/2016 Medications omeprazole (PriLOSEC) 20 mg capsuleIndications :Treatment of Non-Bleeding Gastric Disorder Take 1 capsule (20 mg total) by mouth early childhood education coordinator 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 Active MULTIVIT-MINERALS/ FERROUS FUM (MULTI VITAMIN ORAL)Indications:h ealth Take 1 tablet by mouth early childhood education coordinator 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 Active ondansetron ODT (ZOFRAN-ODT) 4 [...] (25 mg total) by mouth early childhood education coordinator 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 Active nebivoloL (BYSTOLIC) 10 mg [...] Encounters Date Type Department Care Team Description 10/31/2024 4:48 PM CDT - 10/31/2024 10:51 PM CDT Emergency [facility] Emergency Department [address] [place] [address] Yanni Garcia MD Flank pain (Primary Dx) Discharge Disposition: Discharge to home or self care from Last 3 Months Immunizations Immunization Administration Dates Next Due Influenza, [...] Grandfather Beka Sr. Hearing loss Maternal Grandmother [place] Alcohol abuse Mother Melodye Arthritis Mother Melodye COPD Mother Melodye Depression Mother Melodye Hearing loss Mother Melodye Obesity Mother Melodye Stroke Paternal Grandfather Dusty Obesity Sister Sarai Relation Name Status Comments Brother Dusty Father Israel Maternal Grandfather Beka Sr. Maternal Grandmother Cinthya Mother Melelizabethe Paternal Grandfather Dusty Sister Sarai Social History [...] making you feel afraid or unsafe? Denies 10/31/2024 Comments No Sex and Gender Information Value Date Recorded Sex Assigned at Not on file Legal Sex Female 9:06 PM TOOL WORKER Gender Identity Female 10/01/2023 8:44 AM TOOL WORKER Sexual Orientation Straight 10/01/2023 8: 44 AM TOOL WORKER Obstetrics History Para Term AB IAB SAB [...] Sign Reading Time Taken Comments Blood Pressure 129/92 10/31/2024 10:00 PM CDT Pulse 76 10/31/2024 10:00 PM CDT Temperature 36.7 C (98 F) 10/31/2024 4:17 PM CDT Respiratory Rate 18 10/31/2024 10:0 0 PM CDT Oxygen Saturation 96% 10/31/2024 10: 00 PM CDT Inhaled Oxygen Concentration - - Weight 83.4 kg (183 lb 13.8 oz) 10/31/2024 4:17 PM CDT Height 160 cm (5' 3 ) 06/29/2024 7:50 AM TOOL WORKER Body Mass Index 32.57 06/29/2024 7:50 AM TOOL WORKER Plan of Treatment Health Maintenance Due Date [...] home safety. Medical Devices Implanted Type Area Driver/Guide Device Identifier Shelf Expiration Date Model / Serial / Lot Screw Left: Elbow Procedures Procedure Name Priority Date/Time Associated Diagnosis Comments CT ABDOMEN PELVIS WO CONTRAST ED 10/31/2024 7:02 PM CDT POCT HCG, URINE Routine 10/31/2024 6:32 PM CDT EGFR STAT 10/31/2024 5:42 PM CDT DIFFERENTIAL AUTO STAT 10/31/2024 5:4 2 PM CDT LIPASE STAT 10/31/2024 5:42 PM CDT COMPREHENSIVE METABOLIC PANEL STAT 10/31/2024 5:42 PM CDT CBC WITH AUTO DIFFERENTIAL STAT 10/31/2024 5:42 PM CDT URINALYSIS AND REFLEX TO MICROSCOPIC AND CULTURE STAT 10/31/2024 5:42 PM CDT ECG 12-LEAD STAT 10/31/2024 4:30 PM CDT from Last 3 Months Results * CT Abdomen Pelvis WO Contrast (10/31/2024 7:02 PM CDT) Anatomical Region Laterality Modality Body N/A Computed Tomogra phy 10/31/2024 7:09 PM CDT Impressions 10/31/2024 7:28 PM CDT 1. No acute abnormality within the abdomen or pelvis. No ureteral calculi or hydronephrosis. 2. Few small bilateral nonobstructing renal calculi measuring up to 2 mm in the right kidney and 3 mm in the left kidney. Dictated by: Paul Schneider MD The radiology attending physician has personally reviewed this study, and had reviewed and/or edited this written report and agrees with it. Electronically signed by: Mike Olmstead MD, PHD Narrative 10/31/2024 7:28 PM CDT EXAMINATION: Computed tomography of the abdomen and pelvis without intravenous contrast HISTORY: Flank pain, concern for stones TECHNIQUE: Transaxial computed tomographic images of the abdomen and pelvis were obtained without intravenous contrast according to the standard protocol. COMPARISON: 01/22/2024 FINDINGS: Heart size normal. Mild aortic and branch vessel calcifications. Minimal right basilar atelectasis. No pleural effusion. Diffuse hepatic steatosis. Cholecystectomy with reservoir effect. Pancreas, spleen, and adrenals are normal. Nonobstructing subcentimeter nephrolithiasis. No ureterolithiasis or hydronephrosis. Bladder is decompressed. Hysterectomy. No suspicious adnexal mass. No free pelvic fluid. Colonic diverticulosis. Appendix is normal. No bowel obstruction or free air. Distal esophagus, stomach, and duodenum are normal. No abdominal or pelvic lymphadenopathy. No suspicious osseous lesions. Procedure Note Mike Olmstead MD PhD - 10/31/2024 EXAMINATION: Computed tomography of the abdomen and pelvis without intravenous contrast HISTORY: Flank pain, concern for stones TECHNIQUE: Transaxial computed tomographic images of the abdomen and pelvis were obtained without intravenous contrast according to the standard protocol. COMPARISON: 01/22/2024 FINDINGS: Heart size normal. Mild aortic and branch vessel calcifications. Minimal right basilar atelectasis. No pleural effusion. Diffuse hepatic steatosis. Cholecystectomy with reservoir effect. Pancreas, spleen, and adrenals are normal. Nonobstructing subcentimeter nephrolithiasis. No ureterolithiasis or hydronephrosis. Bladder is decompressed. Hysterectomy. No suspicious adnexal mass. No free pelvic fluid. Colonic diverticulosis. Appendix is normal. No bowel obstruction or free air. Distal esophagus, stomach, and duodenum are normal. No abdominal or pelvic lymphadenopathy. No suspicious osseous lesions. IMPRESSION: 1. No acute abnormality within the abdomen or pelvis. No ureteral calculi or hydronephrosis. 2. Few small bilateral nonobstructing renal calculi measuring up to 2 mm in the right kidney and 3 mm in the left kidney. Dictated by: Paul Schneider MD The radiology attending physician has personally reviewed this study, and had reviewed and/or edited this written report and agrees with it. Electronically signed by: Mike Olmstead MD, PHD Minda Gurrola MD IMG CT PROCEDURES Final Result * POCT hCG, urine (10/31/2024 6:32 PM CDT) HCG, ur, POC Negative Negative Lot Number [id number] QC Backgroud Clear Acceptable QC Control Line Acceptable Urine 10/31/2024 6:32 PM CDT Yanni Garcia MD POINT OF CARE TEST ORDERABL ES Final Result * eGFR (10/31/2024 5:42 PM CDT) Pathologist [facility] eGFR >90 >=60 mL/min/1. 73 m2 Comment: Interpretive Data Reference Interval Normal >/= 90 mL/min/1.73m2 Mildly decreased* 60 - 89 mL/min/1.73m2 Mildly to moderately decreased 45 - 59 mL/min/1.73m2 Moderately to severely decreased 30 - 44 mL/min/1.73m2 Severely decreased 15 - 29 mL/min/1.73m2 Kidney Failure < 15 mL/min/1.73m2 *Relative to young adult level Estimated glomerular [...] interpretive data was last reviewed 2021. Blood 10/31/2024 5:42 PM CDT 10/31/2024 5:51 PM CDT Severo Mckeon MD LAB BLOOD ORDERABLES Final R esult [facility] Department [place] [address] * (ABNORMAL) Differential, auto (10/31/2024 5:42 PM CDT) Neutrophil abs 5.6 1.5 - 6.5 K/cumm Imm gran abs 0.0 0.0 - 0.1 K/cumm [facility] Lymphocyte abs 2.3 0.8 - 3.3 K/cumm [facility] Monocyte abs 0.9(H) 0.2 - 0.8 K/cumm [facility] Eosinophil abs 0.1 0.0 - 0.5 K/cumm [facility] Basophil abs 0.1 0.0 - 0.1 K/[facility]umm [facility] Neutrophil pct 62.4 % [facility] Comment: Interpretive Data Percent cell count reference ranges are not reported, since discordance with absolute values may lead to misinterpretation of CBC data. Current Interpretive Data was last revised on 2017. Imm gran pct 0.3 % [facility] Comment: Interpretive Data Percent cell count reference ranges are not reported, since discordance with absolute values may lead to misinterpretation of CBC data. Current Interpretive Data was last revised on 2017. Lymphocyte pct 25.2 % [facility] Comment: Interpretive Data Percent cell count reference ranges are not reported, since discordance with absolute values may lead to misinterpretation of CBC data. Current Interpretive Data was last revised on 2017. Monocyte pct 10.0 % [facility] Comment: Interpretive Data Percent cell count reference ranges are not reported, since discordance with absolute values may lead to misinterpretation of CBC data. Current Interpretive Data was last revised on 2017. Eosinophil pct 1.5 % [facility] Comment: Interpretive Data Percent cell count reference ranges are not reported, since discordance with absolute values may lead to misinterpretation of CBC data. Current Interpretive Data was last revised on 2017. Basophil pct 0.6 % [facility] Comment: Interpretive Data Percent cell count reference ranges are not reported, since discordance with absolute values may lead to misinterpretation of CBC data. Current Interpretive Data was last revised on 2017. Blood 10/31/2024 5:42 PM CDT 10/31/2024 5:51 PM CDT us Severo Mckeon MD LAB BLOOD ORDERABLES Final R esult [facility] Department [place] [address] * Urinalysis reflex to microscopic and culture Urine (10/31/2024 5:42 PM CDT) Color, ur Straw Yellow Clarity, ur Clear Clear [facility] Specific gravity, ur 1.011 1.003 - 1.030 [facility] pH, urine 5.5 [facility] Comment: Interpretive Data U rine pH is affected by diet, medications, systemic acid-base disturbances, and renal tubular function. pH may affect urinary stone formation. For example, urine pH below 6.0 may help reduce the tendency for calcium phosphate stones and pH greater than 6.0 may reduce the tendency for uric acid stone formation. Source: [facility] Current Interpretive Data was last revised on 2017 Protein, ur ql Negative Negative [facility] Glucose, ur ql Negative Negative [facility] Ketones, ur Negative Negative [facility] Bilirubin, ur Negative Negative [facility] Blood, ur Negative Negative [facility] Urobilinogen, ur <2.0 <2.0 mg/dL [facility] Nitrite, ur Negative Negative [facility] Leukocyte esterase, ur Negative Negative [facility] UA reflex comment Reflex conditions for microscopic UA and culture not met. [facility] Urine 10/31/2024 5:42 PM CDT 10/31/2024 5:49 PM CDT us Minda Gurrola MD LAB MICROBIOLOGY - GENER AL ORDERABLES Final Result [facility] Department [place] [address] * (ABNORMAL) CBC with auto differential (10/31/2024 5:42 PM CDT) [facility] WBC 8.9 3.8 - 9.9 K/cumm Hgb 16.1(H) 11.9 - 15.5 g/dL [facility] Hct 45.8(H) 35.6 - 45.5 % [facility] Plt 319 150 - 400 K/cumm [facility] MPV 9.2 9.1 - 12.3 fL [facility] RBC 5.35(H) 3.90 - 5.20 M/cumm [facility] MCV 85.6 81.3 - 96.4 fL [facility] MCH 30.1 27.1 - 33.3 pg [facility] MCHC 35.2 32.3 - 35.7 g/dL [facility] RDW CV 12.5 11.1 - 14.9 % [facility] RDW SD 38.8 35.7 - 48.1 fL [facility] NRBC abs 0.00 0.00 - 0.01 K/cumm [facility] Blood Venous blood specimen / Unknown 10/31/2024 5:42 PM CDT 10/31/2024 5:51 PM CDT us Yanni Garcia MD LAB BLOOD ORDERABLES Final Result [facility] [place] [address] * Lipase (10/31/2024 5:42 PM CDT) [facility] Lipase 41 10 - 99 Units/L Blood Venous blood specimen / Unknown 10/31/2024 5:42 PM CDT 10/31/2024 5:51 PM CDT us Yanni Garcia MD LAB BLOOD [place] [address] * (ABNORMAL) Comprehensive metabolic panel (10/31/2024 5:42 PM CDT) Sodium 142 135 - 145 mmol/L Potassium, pl 4.2 3.3 - 4.9 mmol/L [facility] Chloride 105 97 - 110 mmol/L [facility] CO2 24 22 - 32 mmol/L [facility] Anion gap 13 2 - 15 mmol/L [facility] BUN 9 6 - 25 mg/dL [facility] Creatinine 0.65 0.60 - 1.10 mg/dL [facility] Glucose 84 70 - 199 mg/dL [facility] Comment: Interpretive Data Fasting glucose >/= 126 mg/dl is diagnostic for diabetes. Fasting is defined as no caloric intake [...] classification and Diagnosis of Diabetes Diabetes Care 202; 46: S19-S40. Current interpretive data was last revised 2022. Calcium 10.3 8.5 - 10.3 mg/dL [facility] Bilirubin, total 0.3 0.1 - 1.2 mg/dL [facility] Protein, pl 8.3 6.5 - 8.5 g/dL [facility] Albumin 4.7 3.5 - 5.0 g/dL [facility] Alk phos 105 40 - 130 Units/L [facility] ALT 68(H) 7 - 45 Units/L [facility] AST 48(H) 10 - 45 Units/L [facility] Blood Venous blood specimen / Unknown 10/31/2024 5:42 PM CDT 10/31/2024 5:51 PM CDT us Yanni Garcia MD LAB BLOOD ORDERABLES Final Result [facility] Department [place] [address] * ECG 12-LEAD (10/31/2024 4:30 PM CDT) Narrative [facility] - 10/31/2024 4:30 PM CDT Yanni Garcia MD 10/31/2024 4:32 PM ECG 12 lead Date/Time: 10/31/2024 4:30 PM Performed by: Yanni Garcia MD Authorized by: Severo Mckeon MD Rate: ECG rate: 101 ECG rate assessment: tachycardic Rhythm: Rhythm: sinus tachycardia Ectopy: Ectopy: none QRS: QRS axis: Normal QRS intervals: Normal Conduction: Conduction: normal ST segments: ST segments: Abnormal Elevation: AVR Depression: II and I T waves: T waves: normal Previous ECG: Previous ECG: Compared to current Date of previous EC11/11/2023 Similarity: No change Interpretation: Interpretation: No acute injury pattern Recommended Follow-up: Recommended follow up: further workup in the ED Procedure Note Yanni Garcia MD - 10/31/2024 4:30 PM CDT Procedure ECG 12 lead Date/Time: 10/31/2024 4:30 PM Performed by: Yanni Garcia MD Authorized by: Severo Mckeon MD Rate: ECG rate: 101 ECG rate assessment: tachycardic Rhythm: Rhythm: sinus tachycardia Ectopy: Ectopy: none QRS: QRS axis: Normal QRS intervals: Normal Conduction: Conduction: normal ST segments: ST segments: Abnormal Elevation: AVR Depression: II and I T waves: T waves: normal Previous ECG: Previous ECG: Compared to current Date of previous EC11/11/2023 Similarity: No change Interpretation: Interpretation: No acute injury pattern Recommended Follow-up: Recommended follow up: further workup in the ED Yanni Garcia MD 10/31/24 [id number] us Yanni Garcia MD ECG ORDERABLES Final Resul t [facility] from Last 3 Months Insurance IDPA [facility] CHOICE PLUS [address] [employer] Advance Directives For more information, please contact: [phone] * Full Code (Latest Code Status on File) Date Activated Date Inactivated Comments 08/15/2022 3:10 PM 08/18/2022 6:09 PM Care Teams Lottery Sales Clerk Relationship Specialty Start Date End Date Lucas Carter DO PCP - General Internal Medicine 08/15/22
--- OUTSIDE RECORDS SUMMARY | 2024-11-07 19:21 | XMS_ITS | CONTINUITY OF CARE DOCUMENT ---
Author Name [email or web address] Address Unknown Organization [facility] Address [address] [place] [address] Phone [phone] Care Team Providers Care Media Liaison Officer Name Role Phone William CURIEL, Herlinda Unavailable [phone] [place] CURIEL, NABIL Schmidt Unavailable INSURANCE PROVIDERS Payer name Policy type / Coverage type Bj red democrat [place] [employer] Medicaid [id number] [facility] [id number]
--- OUTSIDE RECORDS SUMMARY | 2024-11-07 19:21 | XMS_ITS | Referral Summary ---
Author Organization [facility] Address [address] [place] [address] Care Team Providers Care Hvac Controls Technician Name Role Phone Lucas Carter DO Primary Care Provider [phone] Encounters Date Type Department Care Team Description 10/31/2024 4:48 PM CDT - 10/31/2024 10:51 PM CDT Emergency [facility] Emergency Department [address] [place] [address] Yanni Garcia MD Flank pain (Primary Dx) Discharge Disposition: Discharge to home or self care from Last 3 Months Allergies Active Allergy Reactions Criticality Noted Date Comments Hydralazine Headache,Vomiting Low 01/21/2024 Ketorolac Hives,Itching Medium 10/17/2017 Tramadol Hives,Urticaria Medium 08/27/2016 Medications omeprazole (PriLOSEC) 20 mg capsuleIndications :Treatment of Non-Bleeding Gastric Disorder Take 1 capsule (20 mg total) by mouth interlocking and signal mechanic 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 Active MULTIVIT-MINERALS/ FERROUS FUM (MULTI VITAMIN ORAL)Indications:h ealth Take 1 tablet by mouth interlocking and signal mechanic 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 Active ondansetron ODT (ZOFRAN-ODT) [...] 1 tablet (25 mg total) by mouth interlocking and signal mechanic 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 Active nebivoloL (BYSTOLIC) 10 [...] on file Legal Sex Female 9:06 PM SHIP PROPELLER FINISHER Gender Identity Female 10/01/2023 8:44 AM SHIP PROPELLER FINISHER Sexual Orientation Straight 10/01/2023 8: 44 AM SHIP PROPELLER FINISHER Last Filed Vital Signs Vital Sign Reading [...] cm (5' 3 ) 06/29/2024 7:50 AM SHIP PROPELLER FINISHER Body Mass Index 32.57 06/29/2024 7:50 AM SHIP PROPELLER FINISHER Plan of Treatment Not on file Goals Goal Patient Goal Type Associated Problems Recent Progress Patient-Stated? Author CCM Chronic Pain Care Plan Chronic Care Management Steph Wilson, RN Note: Problem: Chronic Pain Goals: 1. Minimize further functional decline 2. Maximize quality of life 3. Control pain Strategies: - Activity/exercise program recommendation - Conservative stepwise pain medicine strategy with multi-disciplinary approach - Recommend healthy lifestyle strategies and compensatory methods as needed Reduce the likelihood of falling Lifestyle Steph Wilson, KHADAR Note: Below are four things you [...] on stairs Contact your local community or [facility] for information on exercise, fall prevention programs, or options for improving home safety. Medical Devices Implanted Type Area Financial Advisor Trainee Device Identifier Shelf Expiration Date Model / [...] in the left kidney. Dictated by: Paul Schnieder MD The radiology attending physician has personally [...] Result * eGFR (10/31/2024 5:42 PM CDT) eGFR >90 >=60 mL/min/1. 73 [...] MD LAB BLOOD ORDERABLES Final R esult [facility] [place] [address] * (ABNORMAL) Differential, auto (10/31/2024 5:42 PM CDT) Neutrophil abs 5.6 1.5 - 6.5 K/cumm Imm gran abs 0.0 0.0 - 0.1 K/cumm [facility] Lymphocyte abs 2.3 0.8 - 3.3 K/cumm [facility] Monocyte abs 0.9(H) 0.2 - 0.8 K/cumm [facility] Eosinophil abs 0.1 0.0 - 0.5 K/cumm [facility] Basophil abs 0.1 0.0 - 0.1 K/cumm [facility] Neutrophil pct 62.4 % [facility] Comment: Interpretive Data Percent cell count reference ranges are not reported, since discordance with absolute values may lead to misinterpretation of CBC data. Current Interpretive Data was last revised on 2017. Imm gran pct 0.3 % [facility] Comment: Interpretive Data Percent cell count reference ranges are not reported, since discordance with absolute values may lead to misinterpretation of CBC data. Current Interpretive Data was last revised on 2017. Lymphocyte pct 25.2 % [facility] Comment: Interpretive Data Percent cell count reference ranges are not reported, since discordance with absolute values may lead to misinterpretation of CBC data. Current Interpretive Data was last revised on 2017. Monocyte pct 10.0 % [facility] Comment: Interpretive Data Percent cell count reference ranges are not reported, since discordance with absolute values may lead to misinterpretation of CBC data. Current Interpretive Data was last revised on 2017. Eosinophil pct 1.5 % [facility] Comment: Interpretive Data Percent cell count reference ranges are not reported, since discordance with absolute values may lead to misinterpretation of CBC data. Current Interpretive Data was last revised on 2017. Basophil pct 0.6 % [facility] Comment: Interpretive Data Percent cell count reference ranges are not reported, since discordance with absolute values may lead to misinterpretation of CBC data. Current Interpretive Data was last revised on 2017. Blood 10/31/2024 5:42 PM CDT 10/31/2024 5:51 PM CDT us Severo Mckeon MD LAB BLOOD ORDERABLES Final R esult [facility] [place] [address] * Urinalysis reflex to microscopic and culture Urine (10/31/2024 5:42 PM CDT) Color, ur Straw Yellow Clarity, ur Clear Clear [facility] Specific gravity, ur 1.011 1.003 - 1.030 [facility] pH, urine 5.5 [facility] Comment: Interpretive Data U rine pH is affected by diet, medications, systemic acid-base disturbances, and renal tubular function. pH may affect urinary stone formation. For example, urine pH below 6.0 may help reduce the tendency for calcium phosphate stones and pH greater than 6.0 may reduce the tendency for uric acid stone formation. Source: [facility] Laboratories Current Interpretive Data was last revised on 2017 Protein, ur ql Negative Negative [facility] Glucose, ur ql Negative Negative [facility] Ketones, ur Negative Negative [facility] Bilirubin, ur Negative Negative [facility] Blood, ur Negative Negative [facility] Urobilinogen, ur <2.0 <2.0 mg/dL [facility] Nitrite, ur Negative Negative [facility] Leukocyte esterase, ur Negative Negative [facility] UA reflex comment Reflex conditions for microscopic UA and culture not met. [facility] Urine 10/31/2024 5:42 PM CDT 10/31/2024 5:49 PM CDT Minda Gurrola MD LAB MICROBIOLOGY - GENER AL ORDERABLES Final Result Performing Organization Address [facility] Co de Phone Number [facility] Department [place] [address] * (ABNORMAL) CBC with auto differential (10/31/2024 5:42 PM CDT) Pathologist [facility] WBC 8.9 3.8 - 9.9 K/cumm Hgb 16.1(H) 11.9 - 15.5 g/dL [facility] Hct 45.8(H) 35.6 - 45.5 % [facility] Plt 319 150 - 400 K/cumm [facility] MPV 9.2 9.1 - 12.3 fL [facility] RBC 5.35(H) 3.90 - 5.20 M/cumm [facility] MCV 85.6 81.3 - 96.4 fL [facility] MCH 30.1 27.1 - 33.3 pg [facility] MCHC 35.2 32.3 - 35.7 g/dL [facility] RDW CV 12.5 11.1 - 14.9 % [facility] RDW SD 38.8 35.7 - 48.1 fL [facility] NRBC abs 0.00 0.00 - 0.01 K/cumm [facility] Blood Venous blood specimen / Unknown 10/31/2024 5:42 PM CDT 10/31/2024 5:51 PM CDT us Yanni Garcia MD LAB BLOOD ORDERABLES Final Result Performing Organization Address [facility]/ZIP Co de Phone Number [facility] Department [place] [address] * Lipase (10/31/2024 5:42 PM CDT) Pathologist [facility] Lipase 41 10 - 99 Units/L Blood Venous blood specimen / Unknown 10/31/2024 5:42 PM CDT 10/31/2024 5:51 PM CDT Yanni Garcia MD LAB BLOOD ORDERABLES Final Result [facility] [place] [address] * (ABNORMAL) Comprehensive metabolic panel (10/31/2024 5:42 PM CDT) Sodium 142 135 - 145 mmol/L Potassium, pl 4.2 3.3 - 4.9 mmol/L [facility] Chloride 105 97 - 110 mmol/L [facility] CO2 24 22 - 32 mmol/L [facility] Anion gap 13 2 - 15 mmol/L [facility] BUN 9 6 - 25 mg/dL [facility] Creatinine 0.65 0.60 - 1.10 mg/dL [facility] Glucose 84 70 - 199 mg/dL [facility] Comment: Interpretive Data Fasting glucose >/= 126 [...] 2022. Calcium 10.3 8.5 - 10.3 mg/dL [facility] Bilirubin, total 0.3 0.1 - 1.2 mg/dL [facility] Protein, pl 8.3 6.5 - 8.5 g/dL [facility] Albumin 4.7 3.5 - 5.0 g/dL [facility] Alk phos 105 40 - 130 Units/L [facility] ALT 68(H) 7 - 45 Units/L [facility] AST 48(H) 10 - 45 Units/L [facility] Blood Venous blood specimen / Unknown 10/31/2024 5:42 PM CDT 10/31/2024 5:51 PM CDT Yanni Garcia MD LAB BLOOD ORDERABLES Final Result [facility] [place] [address] * ECG 12-LEAD (10/31/2024 4:30 PM CDT) Narrative [facility] - 10/31/2024 4:30 PM CDT Yanni Garcia [...] in the ED Yanni Garcia MD 10/31/24 [id number] Yanni Garcia MD ECG ORDERABLES Final Resul t [facility] from Last 3 Months Insurance IDPA [facility] H[facility]/PPO Address: [address] [address] [place] [address] [facility] IDPA IDPA Advance Directives For more information, please contact: [phone] * Full Code (Latest Code Status on File) Date Activated Date Inactivated Comments 08/15/2022 3:10 PM 08/18/2022 6:09 PM Care Teams Hvac Controls Technician Relationship Specialty Start Date End Date Lucas Carter DO PCP - General Internal Medicine 08/15/22
--- OUTSIDE RECORDS SUMMARY | 2024-11-07 19:21 | XMS_ITS | Clinical Summary ---
Author Organization [facility] Address [address] [place] [address] Care Team Providers Care Manager Pacu Name Role Phone Damian Sadler MD Primary Care Provider [phone] Source Comments [facility],non-owned Affiliates and Associated Physician Practices is amultiple site organization consisting of ambulatory clinics and hospital sitesin [place], [place], [place]. This disclosure is being madepursuant to the Care Everywhere program and may not contain all information available regarding this patient. Last updated 18.[facility] Allergies Active Allergy Reactions Criticality Noted Date [...] Resulting Agency Comment Lab Testing performed at: [facility] [place] [id number] [facility] [id number] Nancy Cotto MD LAB - CHEMISTRY [facility] INSURANCE BILL [address] [place] [address] * (ABNORMAL) COMPREHENSIVE METABOLIC PANEL (02/03/2024 1:03 AM [facility] BUN 9 7 - 26 mg/dL 02/03/2024 1:45 AM [facility] Creatinine 0.64 0.56 - 0.96 mg/dL 02/03/2024 1:45 AM [facility] Sodium 139 136 - 145 mmol/L 02/03/2024 1:45 AM [facility] Potassium 3.4(L) 3.5 - 4.5 mmol/L 02/03/2024 1:45 AM [facility] Chloride 107 98 - 107 mmol/L 02/03/2024 1:45 AM [facility] CO2 21(L) 22 - 29 mmol/L 02/03/2024 1:45 AM [facility] Glucose 78 70 - 115 mg/dL 02/03/2024 1:45 AM [facility] Calcium 9.9 8.4 - 10.2 mg/dL 02/03/2024 1:45 AM [facility] Protein Total 7.7 6.0 - 8.3 g/dL 02/03/2024 1:45 AM [facility] Albumin 4.4 3.4 - 5.0 g/dL 02/03/2024 1:45 AM [facility] Bilirubin Total 0.4 0.2 - 1.2 mg/dL 02/03/2024 1:45 AM [facility] Alkaline Phosphatase 81 40 - 150 U/L 02/03/2024 1:45 AM [facility] ALT 58(H) 5 - 55 U/L 02/03/2024 1:45 AM [facility] AST 33 5 - 34 U/L 02/03/2024 1:45 AM [facility] Anion Gap 11 6 - 16 02/03/2024 1:45 AM [facility] BUN/Creatinine Ratio 14 7 - 23 02/03/2024 1:45 AM [facility] Osmolality Calculated 286 275 - 295 mOsm/kg 02/03/2024 1:45 AM [facility] Albumin/Globulin Ratio 1.3 1.1 - 2.3 02/03/2024 1:45 AM CDT [facility] eGFR by CKD-EPI >90 >=90 mL/min/1.7 3 m2 02/03/2024 1:45 AM CDT [facility] Blood BLOOD SPECIMEN / Unknown Venipuncture / Unknown 02/03/2024 1:03 AM CDT 02/03/2024 1:17 AM CDT Kaylee Reyes MD LAB - CHEMISTRY [facility]BY [facility] [address] [place] [address], [facility] [phone] from Last 3 Months or Most Recently Relevant to Health Maintenance Care Teams Manager Pacu Relationship Specialty Start Date End Date Damian Sadler MD PCP - General Internal Medicine 07/04/16
--- NOTE | 2024-11-07 20:21 | ED.GENADULT ---
HPI - General Adult General Chief complaint: Urogenital-Female Stated complaint: Vomiting- passing kidney stone , elevated BP Time Seen by Provider: 11/07/24 19:15 Related Data Home Medications ?Medication ?Instructions ?Recorded ?Confirmed ?Last Taken ?Type multivitamin 1 tablet PO DAILY 04/04/22 10/21/24 10/20/24 History pregabalin 150 mg capsule 150 mg PO Q8H PRN pain 02/21/24 10/21/24 10/20/24 History hydrochlorothiazide 25 mg tablet 25 mg PO DAILY 10/21/24 10/21/24 10/20/24 History nebivolol 10 mg tablet (Bystolic) 10 mg PO DAILY 10/21/24 10/21/24 10/20/24 History Allergies Allergy/AdvReac Type Severity Reaction Status Date / Time ketorolac (From Toradol) Allergy Headache,Rash, Verified 11/07/24 18:12 Swollen tongue tramadol AdvReac Mild VOMITING/HE Verified 11/07/24 18:12 ADACHE hydralazine AdvReac Headache Verified 11/07/24 18:12 PMFSH Past Medical History Medical History Hypertension Gastroesophageal reflux disease Sleep paralysis, recurrent isolated Smoker Obesity Depression Multiple kidney stones Seasonal allergies Surgical History Surgical History H/O ureteroscopy 10/21/24 on the right due to proximal ureteral stone; Dr Gonzalez History of laparoscopic cholecystectomy on 04/25/23 PDC History of tubal ligation History of endometrial ablation (2009) History of hysterectomy (2015) History of open reduction and internal fixation (ORIF) procedure (2012) Left elbow. History of section 2000, 2001, 2009 Status post cystoscopy with ureteral stent placement Family History Family History Mother Diabetes mellitus Depression Alcoholism Father Hypertension Sibling Congenital heart disease Son Asthma Grandparent Diabetes mellitus Cerebrovascular accident Social History Social History Social History: Surrogate medical decision maker: Bang Luke, spouse. Code status: Full code. Smoking packs per day: 0.5 Smoking cigarettes per day: 10.0 Years smoked: 32 Smoking pack-years: 16.00 Smoking status: Current every day smoker Tobacco type: cigarettes Alcohol intake: never Alcohol use details: Social alcohol use in moderation. Substance use: never Substance use type: does not use Do You Feel Safe in your Home?: Yes Lack of Transportation: No Lack of Food: Never True Current Housing: I Have Housing Concerned About Future Housing: No Difficulty Paying Gas/Electric Bills: No Difficulty Paying for Meds: No Currently Unemployed: No Education: High School Diploma/GED Difficulty w/ Childcare or Family Care: No Living arrangements: with family Spiritual care concerns: No Exam Narrative: APPEARANCE: No apparent distress. Head: atraumatic. EYES: EOMI, NOSE: Atraumatic NECK: Trachea midline RESPIRATORY: No increased rate of breathing CARDIOVASCULAR: RRR, ABDOMINAL: Soft nontender no guarding, left CVA tenderness MUSCULOSKELETAl: No obvious deformities NEURO: Alert. Moving 4/4 extremities SKIN:: Warm, dry. Normal color PSYCHIATRIC: Normal affect Course Vital Signs Vital signs: Vital Signs Temperature 96.9 F L 11/07/24 18:14 Pulse Rate 102 H 11/07/24 18:14 Respiratory Rate 18 11/07/24 18:14 Blood Pressure 224/129 H 11/07/24 18:14 Pulse Oximetry 98 11/07/24 18:14 Temperature 97.9 F 11/07/24 18:39 Pulse Rate 110 H 11/07/24 18:39 Respiratory Rate 18 11/07/24 18:39 Blood Pressure 183/133 H 11/07/24 18:39 Pulse Oximetry 95 11/07/24 18:39 Medical Decision Making [facility] Narrative Medical decision making narrative: -Course: 44-year-old female with history of kidney stones presenting with left flank pain. She has a 4 mm stone in the proximal ureter. Pain was controlled in the ED. normal white count. Urine is not infected. Patient has close follow-up with her urologist next Saturday. She is comfortable going home with pain medication. Given return precautions. -DDX includes but is not limited to: Kidney stone, infected stone, ureteral spasm Vital Signs Vital Signs: Vital Signs Temperature 96.9 F L 11/07/24 18:14 Pulse Rate 102 H 11/07/24 18:14 Respiratory Rate 18 11/07/24 18:14 Blood Pressure 224/129 H 11/07/24 18:14 Pulse Oximetry 98 11/07/24 18:14 Temperature 97.9 F 11/07/24 18:39 Pulse Rate 110 H 11/07/24 18:39 Respiratory Rate 18 11/07/24 18:39 Blood Pressure 183/133 H 11/07/24 18:39 Pulse Oximetry 95 11/07/24 18:39 Lab Data 11/07/24 18:36 11/07/24 18:36 Labs: Lab Results 11/07/24 11/07/24 Range/Units 18:36 18:38 WBC 6.4 (4.5-10.0) K/mm3 RBC 4.72 (4.2-5.4) M/mm3 Hgb 14.5 (12.0-15.0) g/dL Hct 41.1 (37.0-47.0) % MCV 87.1 (80-100) fl MCH 30.7 (26-34) pg MCHC 35.3 (32-36) g/dl RDW 12.8 (11.5-14.5) % Plt Count 233 (150-375) k/mm3 MPV 9.4 (7.4-10.4) fl Immature Gran % (Auto) 0.3 (0-0.5) % Neut % (Auto) 54.5 (45.5-73.1) % Lymph % (Auto) 34.6 (18.3-44.2) % [place] % (Auto) 8.0 (2.6-8.5) % Eos % (Auto) 2.0 (0-4.4) % Baso % (Auto) 0.6 (0.2-1.2) % Lymph # (Auto) 2.22 (0.9-3.2) K/mm3 [place] # (Auto) 0.5 (0.1-0.6) K/mm3 Eos # (Auto) 0.1 (0-0.3) K/mm3 Baso # (Auto) 0.0 (0.0-0.1) K/mm3 Abs Immat Gran (auto) 0.02 (0.00-0.031) K/mm3 Absolute Neuts (auto) 3.5 (1.3-6.7) K/mm3 Absolute Nucleated RBC 0.000 (0.0-0.012) K/mm3 Nucleated RBC % 0.0 (0.0-0.2) % Sodium 138 (137-145) mmol/L Potassium 3.3 L (3.4-5.0) mmol/L Chloride 106 (98-107) mmol/L Carbon Dioxide 20 L (22-30) mmol/L Anion Gap 12 (4-12) mmol/L BUN 15 (7-17) mg/dL Creatinine 0.61 L (0.7-1.0) mg/dL Estim Creat Clear Calc 101 ml/min Estimated GFR > 60 (59 - ) Glucose 139 H (65-110) mg/dL Calcium 9.1 (8.4-10.2) mg/dL Total Bilirubin 0.5 (0.2-1.3) mg/dL AST 58 H (14-36) U/L ALT 72 H (6-35) U/L Alkaline Phosphatase 91 (38-126) U/L Total Protein 8.0 (6.3-8.2) g/dL Albumin 4.5 (3.5-5.1) g/dL Urine Color Dark yellow (Yellow) Urine Appearance Cloudy H (Clear) Urine pH 5.5 (5.0-9.0) Ur Specific [place] 1.037 H (1.001-1.035) Urine Protein 1+ H (Negative) mg/dL Urine Glucose (UA) Negative (Negative) mg/dL Urine Ketones Trace H (Negative) mg/dL Ur Blood (Man) 3+ H (Negative) Urine Nitrate Negative (Negative) Urine Bilirubin Negative (Negative) Urine Urobilinogen 1.0 (<2.0) mg/dL Leukocyte Esterase Rfl Negative (Negative) ALEKSANDRA/UL Urine RBC 51-100 H (0-2) /hpf Urine WBC 6-10 H (0-3) /hpf Ur Squamous Epith Cells Moderate (Few) /hpf Urine Bacteria 2+ H /hpf Urine Casts 3-5 POC Urine HCG, Qual Negative (Negative) Discharge Plan Discharge Clinical Impression: Kidney stone Patient Disposition: Home, Self-Care Condition: Stable Instructions: Antibiotic Form, Kidney Stones (ED) Additional Instructions: You were seen in the emergency department for a kidney stone. Please use Motrin/Tylenol for pain. Use oxycodone for breakthrough pain. Use Zofran for nausea. Please follow-up with your Urologist for further management. Please return if you develop severe pain, fevers or intractable nausea and vomiting. Patient Language: Palestinian Prescriptions: New acetaminophen 500 mg tablet 1,000 mg PO TID PRN (Reason: carmen) 7 Days Qty: 42 0RF oxycodone 5 mg tablet 5 mg PO Q4H PRN (Reason: pain) Qty: 20 0RF No Action multivitamin Tablet 1 tablet PO DAILY pregabalin 150 mg capsule 150 mg PO Q8H PRN (Reason: pain) ondansetron 4 mg tablet,disintegrating 4 mg PO Q8H Qty: 14 0RF hydrochlorothiazide 25 mg tablet 25 mg PO DAILY nebivolol [Bystolic] 10 mg tablet 10 mg PO DAILY cephalexin 500 mg capsule 500 mg PO Q12H Qty: 10 0RF hydrocodone-acetaminophen 5-325 mg tablet 1 tablet PO Q8H PRN (Reason: pain) Qty: 10 0RF acetaminophen 500 mg capsule 1,000 mg PO Q6H PRN (Reason: pain) Qty: 30 0RF phenazopyridine 100 mg tablet 100 mg PO TID PRN (Reason: pain) 2 Days Qty: 5 0RF Rx Instructions: after meals; received first dose in ED 3/16 AM hydrocodone-acetaminophen 5-325 mg tablet 1 tablet PO Q8H PRN (Reason: pain) Qty: 10 0RF ondansetron 4 mg tablet,disintegrating 4 mg PO Q8H PRN (Reason: nausea and vomiting) Qty: 7 0RF tamsulosin 0.4 mg capsule 0.4 mg PO DAILY Qty: 14 0RF ondansetron 4 mg tablet,disintegrating 4 mg PO Q6H PRN (Reason: nausea and vomiting) Qty: 14 0RF phenazopyridine [Pyridium] 200 mg tablet 200 mg PO TID PRN (Reason: pain) Qty: 20 0RF losartan 50 mg tablet 50 mg PO BID Qty: 180 0RF Follow-up/Referrals: Lucas Carter, [Primary Care Provider] -
[2024-11-07 20:46] VITALS: BP 168/116; PULSE 104; RESP 16; TEMP 36.7; O2SAT 99
== END 2024-11-07 20:47 | disposition home or self-care (01) ==
PROVIDERS: Emergency Medicine; Emergency Provider Emergency Medicine; PCP Internal Medicine
DX: N20.2 Calculus of kidney with calculus of ureter (principal); I10 Essential (primary) hypertension; E66.9 Obesity, unspecified; Z68.32 Body mass index [BMI] 32.0-32.9, adult; K21.9 Gastro-esophageal reflux disease without esophagitis; G47.53 Recurrent isolated sleep paralysis; F32.A Depression, unspecified; Z87.442 Personal history of urinary calculi; Z90.49 Acquired absence of other specified parts of digestive tract; Z90.710 Acquired absence of both cervix and uterus; F17.210 Nicotine dependence, cigarettes, uncomplicated
CPT/HCPCS: 36415; 74176; 80053; 81001; 81025; 85025; 96374; 96375; 96376; 99284; J1171; J2405

== ENCOUNTER 2024-11-13 21:51 | Observation (INO) | payer OTHER, SELFPAY ==
--- NOTE | ~2024-11-13 | US_ITS ---
EXAM: RENAL DOPPLER ULTRASOUND HISTORY: rule out renal artery stenosis COMPARISON: None FINDINGS: Peak systolic velocity (PSV) in cm/sec; Resistive Index (RI) Abdominal Aorta: 52; 0.8 Proximal Right renal artery: 63; 0.6 Mid Right renal artery: 106; 0.6 Distal Right renal artery: 42; 0.6 RIGHT Renal artery;Aortic Ratio (RAR): 2.1 (normal is less than 3.5) Proximal Left renal artery: 83; 0.6 Mid Left renal artery: 68; 0.6 Distal Left renal artery: 45; 0.7 LEFT Renal artery;Aortic Ratio (RAR): 1.6 (normal is less than 3.5) IMPRESSION: Unremarkable Doppler evaluation of the bilateral renal arteries, as detailed above. Reviewed, dictated and finalized at location A. IMPRESSION: Unremarkable Doppler evaluation of the bilateral renal arteries, as detailed ab ove.
--- NOTE | ~2024-11-13 | XR_ITS ---
EXAMINATION: XR retrograde pyelo w/stent LT DATE: 11/14/2024 09:53 INDICATION: Left ureteral stone TECHNIQUE: 2 fluoroscopic images of the abdomen and pelvis were obtained during procedure performed b sunday Alejandro. Radiologist was not present for the imaging or procedure. The amount of fluoroscopy t melissa used during this procedure was 0.3 minutes. Total DAP was 0.334 mGym^2. COMPARISON: None. FINDINGS: Subtle density seen injecting lateral to the left transverse process of L2 on the linderman machine operator deandre ge which likely represents the previously noted proximal left ureteral stone. Cholecystectomy clips i n right upper quadrant. Subsequent image demonstrates a catheter advanced to the left renal pelvis wi th retrograde contrast injections opacify in the nondilated left renal collecting system. The stone i s no longer visualized and has either been extracted cores obscured by contrast. IMPRESSION: 1. Fluoroscopy utilized during left retrograde pyelogram likely proximal left ureteral stone extracti on. See procedure note for further detail. Reviewed, dictated and finalized at location A. IMPRESSION: 1. Fluoroscopy utilized during left retrograde pyelogram likely proximal left u reteral stone extraction. See procedure note for further detail.
--- NOTE | ~2024-11-13 | XR_ITS ---
EXAMINATION: XR abdomen/kub 1V DATE: 11/14/2024 01:40 INDICATION: Proximal left ureteral stone TECHNIQUE: A supine view of the abdomen on 2 radiographs was obtained. COMPARISON: CT dated 11/13/2024 FINDINGS: There is residual excreted contrast from recent contrast enhanced CT in the bilateral kidneys and in a small segment of the distal right ureter. No hydronephrosis. The proximal left ureteral stone is no t visualized however is in the region of contrast opacification and may be obscured. Cholecystectomy clips in right upper quadrant. Normal bowel gas pattern. IMPRESSION: 1. Excreted contrast in the bilateral renal collecting systems from recent contrast-enhanced CT witho ut hydronephrosis. 2. Previous noted proximal left ureteral stone not visualized but is in the region of contrast opacif ication and may be obscured. Reviewed, dictated and finalized at location A. IMPRESSION: 1. Excreted contrast in the bilateral renal collecting systems from recent cont rast-enhanced CT without hydronephrosis. 2. Previous noted proximal left ureteral stone not visualized but is in the reg ion of contrast opacification and may be obscured.
--- NOTE | ~2024-11-13 | CT_ITS ---
CLINICAL INDICATION: Left flank pain and microhematuria COMPARISON: 11/07/2024. TECHNIQUE: Multiple contiguous axial images of the abdomen and pelvis were performed following the ad ministration of with 100 mL Omnipaque-350 intravenous contrast The dose-length product (DLP) was 792.26 mGy-cm. Automated exposure control and iterative reconstruction technique were employed. FINDINGS/OBSERVATIONS: Visualized lower thorax: The bilateral lung bases are clear. The heart is of normal size, without pericardial effusion. Small hiatal hernia is present. Liver: The liver demonstrates homogeneously decreased enhancement and is markedly enlarged measuring 23 cm i n longitudinal dimension. Gallbladder and biliary system: The gallbladder is surgically absent. Pancreas: The pancreas enhances homogeneously without ductal dilatation. Spleen: The spleen enhances homogeneously and is not enlarged measuring 11 cm in longitudinal dimension. Kidneys: Redemonstration of a partially obstructing 4 mm calculus proximal left ureter, likely the so urce of patient's left flank pain. No obstructive uropathy within the right kidney or ureter. Limited evaluation for the absence of nonobstructing stones within the bilateral kidneys, secondary t o the administration of intravenous contrast. Adrenal glands: Unremarkable. Gastrointestinal tract: Colonic diverticulosis without surrounding inflammatory change. Appendix: The air-filled appendix is of normal caliber (axial series, images 127 through 144). Vasculature: Unremarkable. Lymph nodes: No pathologically enlarged or morphologically suspicious lymph nodes within the retroperitoneum or at the root of the mesentery. Pelvic structures: The bladder is decompressed and otherwise unremarkable. The uterus is retroverted and retroflexed. Body wall and musculoskeletal: Small fat-containing umbilical hernia. No significant degenerative disease within the lower thoracic or lumbosacral spine. IMPRESSION: Redemonstration of a partially obstructing 4 mm calculus within the proximal left ureter, unchanged f rom prior. Fatty infiltration of a markedly enlarged liver. Reviewed, dictated and finalized at location A. IMPRESSION: Redemonstration of a partially obstructing 4 mm calculus within the proximal le ft ureter, unchanged from prior. Fatty infiltration of a markedly enlarged liver.
[2024-11-13 21:53] VITALS: BP 198/123; PULSE 74; RESP 14; TEMP 36.4; O2SAT 98
--- OUTSIDE RECORDS SUMMARY | 2024-11-13 21:53 | XMS_ITS | CONTINUITY OF CARE DOCUMENT ---
Author Name [email or web address] Address Unknown Organization [facility] Address [address] [place] [address] Phone [phone] Care Team Providers Care Night Coordinator Name Role Phone iWlliam CURIEL, Herlinda Unavailable [place]AWNEE CURIEL, NABIL Schmidt Unavailable INSURANCE PROVIDERS Payer name Policy type / Coverage type Bj red constitution party ID [employer] [employer] Medicaid [id number] [facility] [id number]
--- OUTSIDE RECORDS SUMMARY | 2024-11-13 21:53 | XMS_ITS | Referral Summary ---
Author Organization [facility] Address [address] [place] [address] Care Team Providers Care Hydroelectric Plant Structural Engineer Name Role Phone Lucas Carter DO Primary Care Provider [phone] Encounters Date Type Department Care Team Description 10/31/2024 4:48 PM CDT - 10/31/2024 10:51 PM CDT Emergency [facility] Emergency Department [address] [place] [address] Yanni Garcia MD Flank pain (Primary Dx) Discharge Disposition: Discharge to home or self care from Last 3 Months Allergies Active Allergy Reactions Criticality Noted Date Comments Hydralazine Headache,Vomiting Low 01/21/2024 Ketorolac Hives,Itching Medium 10/17/2017 Tramadol Hives,Urticaria Medium 08/27/2016 Medications omeprazole (PriLOSEC) 20 mg capsuleIndications :Treatment of Non-Bleeding Gastric Disorder Take 1 capsule (20 mg total) by mouth structural metal worker 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 Active MULTIVIT-MINERALS/ FERROUS FUM (MULTI VITAMIN ORAL)Indications:h ealth Take 1 tablet by mouth structural metal worker 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 Active ondansetron ODT (ZOFRAN-ODT) 4 [...] 1 tablet (25 mg total) by mouth structural metal worker 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 Active nebivoloL (BYSTOLIC) 10 mg [...] 24 Active pregabalin (LYRICA) 150 mg capsule Take 1 capsule (150 mg total) by mouth nightly 90 capsule 11/22/19 25 Active pregabalin (LYRICA) 150 mg capsule TAKE 1 CAPSULE(150 MG) BY MOUTH TWICE DAILY 60 capsule 09/14/19 25 025 Discontin ued(Reord er) Active Problems Problem Noted Date Diagnosed Date [...] on file Legal Sex Female 9:06 PM DRAWBRIDGE OPERATOR Gender Identity Female 10/01/2023 8:44 AM DRAWBRIDGE OPERATOR Sexual Orientation Straight 10/01/2023 8: 44 AM DRAWBRIDGE OPERATOR Last Filed Vital Signs Vital Sign [...] cm (5' 3 ) 06/29/2024 7:50 AM DRAWBRIDGE OPERATOR Body Mass Index 32.57 06/29/2024 7:50 AM DRAWBRIDGE OPERATOR Plan of Treatment Not on file [...] the likelihood of falling Lifestyle Steph Wilson, RN Note: Below are four things you [...] on stairs Contact your local community or [facility] for information on exercise, fall prevention programs, or options for improving home safety. Medical Devices Implanted Type Area Pad Machine Feeder Device Identifier Shelf Expiration Date Model / [...] MD LAB BLOOD ORDERABLES Final R esult [facility] Department [place] [address] * (ABNORMAL) Differential, auto (10/31/2024 5:42 PM CDT) Neutrophil abs 5.6 1.5 - 6.5 K/cumm Imm gran abs 0.0 0.0 - 0.1 K/cumm [facility] Lymphocyte abs 2.3 0.8 - 3.3 K/cumm [facility] Monocyte abs 0.9(H) 0.2 - 0.8 K/cumm [facility] Eosinophil abs 0.1 0.0 - 0.5 K/cumm [facility] Basophil abs 0.1 0.0 - 0.1 K/cumm [facility] Neutrophil pct 62.4 % [facility] Comment: Interpretive Data Percent cell count reference ranges are not reported, since discordance with absolute values may lead to misinterpretation of CBC data. Current Interpretive Data was last revised on 2017. Imm gran pct 0.3 % [facility] Comment: Interpretive Data Percent cell count reference ranges are not reported, since discordance with absolute values may lead to misinterpretation of CBC data. Current Interpretive Data was last revised on 2017. Lymphocyte pct 25.2 % [facility] Comment: Interpretive Data Percent cell count reference ranges are not reported, since discordance with absolute values may lead to misinterpretation of CBC data. Current Interpretive Data was last revised on 2017. Monocyte pct 10.0 % [facility] Comment: Interpretive Data Percent cell count reference ranges are not reported, since discordance with absolute values may lead to misinterpretation of CBC data. Current Interpretive Data was last revised on 2017. Eosinophil pct 1.5 % [facility] Comment: Interpretive Data Percent cell count reference ranges are not reported, since discordance with absolute values may lead to misinterpretation of CBC data. Current Interpretive Data was last revised on 2017. Basophil pct 0.6 % [facility] Comment: Interpretive Data Percent cell count reference ranges are not reported, since discordance with absolute values may lead to misinterpretation of CBC data. Current Interpretive Data was last revised on 2017. Blood 10/31/2024 5:42 PM CDT 10/31/2024 5:51 PM CDT us Severo Mckeon MD LAB BLOOD ORDERABLES Final R esult [facility] Department [place] [address] * Urinalysis reflex to microscopic and culture Urine (10/31/2024 5:42 PM CDT) Color, ur Straw Yellow Clarity, ur Clear Clear [facility] Specific gravity, ur 1.011 1.003 - 1.030 [facility] pH, urine 5.5 [facility] Comment: Interpretive Data U rine pH is affected by diet, medications, systemic acid-base disturbances, and renal tubular function. pH may affect urinary stone formation. For example, urine pH below 6.0 may help reduce the tendency for calcium phosphate stones and pH greater than 6.0 may reduce the tendency for uric acid stone formation. Source: [facility] [employer] Current Interpretive Data was last revised on 2017 Protein, ur ql Negative Negative [facility] Glucose, ur ql Negative Negative [facility] Ketones, ur Negative Negative [facility] Bilirubin, ur Negative Negative [facility] Blood, ur Negative Negative [facility] Urobilinogen, ur <2.0 <2.0 mg/dL [facility] Nitrite, ur Negative Negative [facility] Leukocyte esterase, ur Negative Negative [facility] UA reflex comment Reflex conditions for microscopic UA and culture not met. [facility] Urine 10/31/2024 5:42 PM CDT 10/31/2024 5:49 PM CDT us Minda Gurrola MD LAB MICROBIOLOGY - GENER AL ORDERABLES Final Result [facility] Department [place] [address] * (ABNORMAL) CBC with auto differential (10/31/2024 5:42 PM CDT) WBC 8.9 3.8 - 9.9 K/cumm Hgb 16.1(H) 11.9 - 15.5 g/dL [facility] Hct 45.8(H) 35.6 - 45.5 % [facility] Plt 319 150 - 400 K/cumm [facility] MPV 9.2 9.1 - 12.3 fL [facility] RBC 5.35(H) 3.90 - 5.20 M/cumm [facility] MCV 85.6 81.3 - 96.4 fL [facility] MCH 30.1 27.1 - 33.3 pg [facility] MCHC 35.2 32.3 - 35.7 g/dL [facility] RDW CV 12.5 11.1 - 14.9 % [facility] RDW SD 38.8 35.7 - 48.1 fL [facility] NRBC abs 0.00 0.00 - 0.01 K/cumm [facility] Blood Venous blood specimen / Unknown 10/31/2024 5:42 PM CDT 10/31/2024 5:51 PM CDT us Yanni Garcia MD LAB BLOOD ORDERABLES Final Result [facility] Department [place] [address] * Lipase (10/31/2024 5:42 PM CDT) Pathologist [facility] Lipase 41 10 - 99 Units/L Blood Venous blood specimen / Unknown 10/31/2024 5:42 PM CDT 10/31/2024 5:51 PM CDT us Yanni Garcia MD LAB BLOOD ORDERABLES Final Result [facility] Department [place] [address] * (ABNORMAL) Comprehensive metabolic panel (10/31/2024 5:42 PM CDT) Sodium 142 135 - 145 mmol/L Potassium, pl 4.2 3.3 - 4.9 mmol/L [facility] Chloride 105 97 - 110 mmol/L [facility] CO2 24 22 - 32 mmol/L [facility] Anion gap 13 2 - 15 mmol/L [facility] BUN 9 6 - 25 mg/dL [facility] Creatinine 0.65 0.60 - 1.10 mg/dL [facility] Glucose 84 70 - 199 mg/dL [facility] Comment: Interpretive Data Fasting glucose [...] 2022. Calcium 10.3 8.5 - 10.3 mg/dL [facility] Bilirubin, total 0.3 0.1 - 1.2 mg/dL [facility] Protein, pl 8.3 6.5 - 8.5 g/dL [facility] Albumin 4.7 3.5 - 5.0 g/dL [facility] Alk phos 105 40 - 130 Units/L [facility] ALT 68(H) 7 - 45 Units/L [facility] AST 48(H) 10 - 45 Units/L [facility] Blood Venous blood specimen / Unknown 10/31/2024 5:42 PM CDT 10/31/2024 5:51 PM CDT Yanni Garcia MD LAB BLOOD ORDERABLES Final Result [facility] [place] [address] * ECG 12-LEAD (10/31/2024 4:30 PM CDT) Narrative [facility] - 10/31/2024 4:30 PM CDT Yanni Garcia [...] in the ED Yanni Garcia MD 10/31/24 1632 us Yanni Garcia MD ECG ORDERABLES Final Resul t [facility] from Last 3 Months Insurance IDPA [facility] CHOICE PLUS [facility] HMO/PPO Address: [address] [address] [place] [address] [facility] IDPA [employer]PA Advance Directives For more information, please contact: [phone] * Full Code (Latest Code Status on File) Date Activated Date Inactivated Comments 08/15/2022 3:10 PM 08/18/2022 6:09 PM Care Teams Hydroelectric Plant Structural Engineer Relationship Specialty Start Date End Date Lucas Carter DO PCP - General Internal Medicine 08/15/22
--- OUTSIDE RECORDS SUMMARY | 2024-11-13 21:53 | XMS_ITS | Encounter Summary ---
Author Organization [facility] Care Team Providers Care Assistant Professor Of Marine Biology Name Role Phone Unavailable Primary Care Provider Unavailabl e Encounter Details Date Type Department Care Team (Latest Contact Info) Description 11/13/2024 Travel Social History Tobacco Use Types Packs/Day Years Used Date Smoking Tobacco: Every Day Cigarettes Smokeless Tobacco: Never Alcohol Use Standard Drinks/Week Comments Not Currently 0 (1 standard drink = 0.6 oz pur e alcohol) Comments Unknown Sex and Gender Information Value Date Recorded Sex Assigned at Not on file Legal Sex Female 3:04 PM CDT Gender Identity Not on file Sexual Orientation Not on file documented as of this encounter Plan of Treatment Upcoming Encounters Date Type Department Care Team (Latest Contact Info) Description 11/16/2024 12:10 PM CDT Hospital Encounter [facility] [address] [place] [address] Carlyle Calderon MD [address] [address] 11/16/2024 12:10 PM CDT - 11/16/2024 1:40 PM CDT Surgery [facility] [address] [place] [address] Carlyle Calderon MD [address] [address] BILATERAL URETEROSCOPY WITH HOLMIUM LASER LITHOTRIPSY AND STONE EXTRACTION Scheduled Procedures Name Priority Associated Diagnoses Date/Ti me URETEROSCOPY WITH HOLMIUM LASER RIGHT URETERAL STONE 11/16/2024 12:10 PM CDT CYSTOSCOPY RETROGRADE PYELOGRAMS RIGHT URETERAL STONE 11/16/2024 12:10 PM CDT CYSTOSCOPY STENT INSERTION (SINGLE / BILATERAL) RIGHT URETERAL STONE 11/16/2024 12:10 PM CDT documented as of this encounter Visit Diagnoses Not on filedocumented in this encounter
--- OUTSIDE RECORDS SUMMARY | 2024-11-13 21:53 | XMS_ITS | Clinical Summary ---
Author Organization [facility] Address [address] [place] [address] Care Team Providers Care Garment Finisher Name Role Phone Lucas Carter DO Primary Care Provider [phone] Allergies Active Allergy Reactions Criticality Noted Date Comments Hydralazine Headache,Vomiting Low 01/21/2024 Ketorolac Hives,Itching Medium 10/17/2017 Tramadol Hives,Urticaria Medium 08/27/2016 Medications omeprazole (PriLOSEC) 20 mg capsuleIndications :Treatment of Non-Bleeding Gastric Disorder Take 1 capsule (20 mg total) by mouth talent acquisition program manager 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 Active MULTIVIT-MINERALS/ FERROUS FUM (MULTI VITAMIN ORAL)Indications:h ealth Take 1 tablet by mouth talent acquisition program manager 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 Active ondansetron ODT (ZOFRAN-ODT) [...] 1 tablet (25 mg total) by mouth talent acquisition program manager 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 Active nebivoloL (BYSTOLIC) 10 [...] CDT - 10/31/2024 10:51 PM CDT Emergency [facility] Emergency Department [address] [place] [address] Yanni Garcia MD Flank pain (Primary Dx) [...] loss Maternal Grandmother Cinthya Alcohol abuse Mother Melodye Arthritis Mother Melodye [...] on file Legal Sex Female 9:06 PM POWERHOUSE ENGINEER Gender Identity Female 10/01/2023 8:44 AM POWERHOUSE ENGINEER Sexual Orientation Straight 10/01/2023 8: 44 AM POWERHOUSE ENGINEER Obstetrics History Para Term AB IAB SAB [...] cm (5' 3 ) 06/29/2024 7:50 AM POWERHOUSE ENGINEER Body Mass Index 32.57 06/29/2024 7:50 AM POWERHOUSE ENGINEER Plan of Treatment Health Maintenance Due Date Last Done Comments Breast Cancer Screening-Mammogram 1979 Colon Cancer Screening-Colonoscopy 1979 Depression Screening 1979 Hepatitis C Screening 1979 DTaP/Tdap/Td Vaccine (1 - Tdap) 1990 Hepatitis B Screening 1997 Pneumococcal vaccine <65 (1 of 2 - PCV) 1998 Regular Well Visit/Exam 18-64 10/08/2020 10/08/2019 Influenza Vaccine (Season Ended) 2025 06/24/2015, 05/12/2015 HPV Vaccines Aged Out No longer [...] Reduce the likelihood of falling Lifestyle Steph Wilson RN Note: Below are four things you [...] on stairs Contact your local community or [facility] for information on exercise, fall prevention programs, or options for improving home safety. Medical Devices Implanted Type Area Assembling Machine Operator Device Identifier Shelf Expiration Date [...] MD LAB BLOOD ORDERABLES Final R esult [facility] Department [place] [address] * (ABNORMAL) Differential, auto (10/31/2024 5:42 PM CDT) Pathologist [facility] Neutrophil abs 5.6 1.5 - 6.5 K/cumm Imm gran abs 0.0 0.0 - 0.1 K/cumm [facility] Lymphocyte abs 2.3 0.8 - 3.3 K/cumm [facility] Monocyte abs 0.9(H) 0.2 - 0.8 K/cumm [facility] Eosinophil abs 0.1 0.0 - 0.5 K/cumm [facility] Basophil abs 0.1 0.0 - 0.1 K/cumm [facility] Neutrophil pct 62.4 % [facility] Comment: Interpretive Data Percent cell count reference ranges are not reported, since discordance with absolute values may lead to misinterpretation of CBC data. Current Interpretive Data was last revised on 2017. Imm gran pct 0.3 % [facility] Comment: Interpretive Data Percent cell count reference ranges are not reported, since discordance with absolute values may lead to misinterpretation of CBC data. Current Interpretive Data was last revised on 2017. Lymphocyte pct 25.2 % [facility] Comment: Interpretive Data Percent cell count reference ranges are not reported, since discordance with absolute values may lead to misinterpretation of CBC data. Current Interpretive Data was last revised on 2017. Monocyte pct 10.0 % [facility] Comment: Interpretive Data Percent cell count reference ranges are not reported, since discordance with absolute values may lead to misinterpretation of CBC data. Current Interpretive Data was last revised on 2017. Eosinophil pct 1.5 % [facility] Comment: Interpretive Data Percent cell count reference ranges are not reported, since discordance with absolute values may lead to misinterpretation of CBC data. Current Interpretive Data was last revised on 2017. Basophil pct 0.6 % [facility] Comment: Interpretive Data Percent cell count reference ranges are not reported, since discordance with absolute values may lead to misinterpretation of CBC data. Current Interpretive Data was last revised on 2017. Blood 10/31/2024 5:42 PM CDT 10/31/2024 5:51 PM CDT Severo Mckeon MD LAB BLOOD ORDERABLES Final R esult [facility] [place] [address] * Urinalysis reflex to microscopic and culture Urine (10/31/2024 5:42 PM CDT) Color, ur Straw Yellow Clarity, ur Clear Clear [facility] Specific gravity, ur 1.011 1.003 - 1.030 [facility] pH, urine 5.5 [facility] Comment: Interpretive Data U rine pH is affected by diet, medications, systemic acid-base disturbances, and renal tubular function. pH may affect urinary stone formation. For example, urine pH below 6.0 may help reduce the tendency for calcium phosphate stones and pH greater than 6.0 may reduce the tendency for uric acid stone formation. Source: [facility] Current Interpretive Data was last revised on 2017 Protein, ur ql Negative Negative [facility] Glucose, ur ql Negative Negative [facility] Ketones, ur Negative Negative [facility] Bilirubin, ur Negative Negative [facility] Blood, ur Negative Negative [facility] Urobilinogen, ur <2.0 <2.0 mg/dL [facility] Nitrite, ur Negative Negative [facility] Leukocyte esterase, ur Negative Negative [facility] UA reflex comment Reflex conditions for microscopic UA and culture not met. [facility] Urine 10/31/2024 5:42 PM CDT 10/31/2024 5:49 PM CDT Minda Gurrola MD LAB MICROBIOLOGY - [facility] AL ORDERABLES Final Result Performing Organization Address [facility]/ZIP Co de Phone Number [facility] Department [place] [address] * (ABNORMAL) CBC with auto differential (10/31/2024 5:42 PM CDT) [facility] WBC 8.9 3.8 - 9.9 K/cumm Hgb 16.1(H) 11.9 - 15.5 g/dL [facility] Hct 45.8(H) 35.6 - 45.5 % [facility] Plt 319 150 - 400 K/cumm [facility] MPV 9.2 9.1 - 12.3 fL [facility] RBC 5.35(H) 3.90 - 5.20 M/cumm [facility] MCV 85.6 81.3 - 96.4 fL [facility] MCH 30.1 27.1 - 33.3 pg [facility] MCHC 35.2 32.3 - 35.7 g/dL [facility] RDW CV 12.5 11.1 - 14.9 % [facility] RDW SD 38.8 35.7 - 48.1 fL [facility] NRBC abs 0.00 0.00 - 0.01 K/cumm [facility] Blood Venous blood specimen / Unknown 10/31/2024 5:42 PM CDT 10/31/2024 5:51 PM CDT Yanni Garcia MD LAB BLOOD ORDERABLES Final Result [facility] Department [place] [address] * Lipase (10/31/2024 5:42 PM CDT) [facility] Lipase 41 10 - 99 Units/L Blood Venous blood specimen / Unknown 10/31/2024 5:42 PM CDT 10/31/2024 5:51 PM CDT Yanni Garcia MD LAB BLOOD ORDERABLES Final Result [facility] Department [place] [address] * (ABNORMAL) Comprehensive metabolic panel (10/31/2024 5:42 PM CDT) Sodium 142 135 - 145 mmol/L Potassium, pl 4.2 3.3 - 4.9 mmol/L [facility] Chloride 105 97 - 110 mmol/L [facility] CO2 24 22 - 32 mmol/L [facility] Anion gap 13 2 - 15 mmol/L [facility] BUN 9 6 - 25 mg/dL [facility] Creatinine 0.65 0.60 - 1.10 mg/dL [facility] Glucose 84 70 - 199 mg/dL [facility] Comment: Interpretive Data Fasting glucose [...] 2022. Calcium 10.3 8.5 - 10.3 mg/dL [facility] Bilirubin, total 0.3 0.1 - 1.2 mg/dL [facility] Protein, pl 8.3 6.5 - 8.5 g/dL [facility] Albumin 4.7 3.5 - 5.0 g/dL [facility] Alk phos 105 40 - 130 Units/L [facility] ALT 68(H) 7 - 45 Units/L [facility] AST 48(H) 10 - 45 Units/L [facility] Blood Venous blood specimen / Unknown 10/31/2024 5:42 PM CDT 10/31/2024 5:51 PM CDT Yanni Garcia MD LAB BLOOD ORDERABLES Final Result Performing Organization Address City/[facility]/ZIP Co de Phone Number [facility] Department [place] [address] * ECG 12-LEAD (10/31/2024 4:30 PM CDT) Narrative [facility] - 10/31/2024 4:30 PM CDT Yanni [...] in the ED Yanni Garcia MD 10/31/24 0902 us Yanni Garcia MD ECG ORDERABLES Final Resul t [facility] from Last 3 Months Insurance IDPA [facility] CHOICE PLUS [facility] IDPA IDPA Advance Directives For more information, please contact: [phone] * Full Code (Latest Code Status on File) Date Activated Date Inactivated Comments 08/15/2022 3:10 PM 08/18/2022 6:09 PM Care Teams Garment Finisher Relationship Specialty Start Date End Date Lucas Carter DO PCP - General Internal Medicine 08/15/22
--- OUTSIDE RECORDS SUMMARY | 2024-11-13 21:53 | XMS_ITS | Clinical Summary ---
Author Organization [facility] Address [address] [place] [address] Phone Care Team Providers Care Union Representative Name Role Phone Unavailable Primary Care Provider Unavailabl e Allergies Active Allergy Reactions Criticality Noted Date Comments Hydralazine Vomiting 11/13/2024 Ketorolac Tromethamine Swelling,Vomiting ,Ot her (see Comments) 11/13/2024 Headache, tongue swells Tramadol Swelling,Vomiting 11/13/2024 Swelling of tongue, vomitung Medications losartan (COZAAR) 50 MG Tablet Take 50 mg by mouth 2 times daily. Active hydroCHLOROthiaz sandeep 25 MG Tablet Take 25 mg by mouth daily. Active Nebivolol HCl 10 MG Tablet Take by mouth nightly. Active omeprazole (PriLOSEC) 20 MG CAPSULE DELAYED RELEASE Take 20 mg by mouth nightly. Active Encounters Date Type Department Care Team Description 11/13/2024 Travel 11/13/2024 Telephone [facility] [address] [place] [address] Carlyle Calderon MD 11/12/2024 Telephone [facility] [address] [place] [address] Carlyle Calderon MD from Last 3 Months Family History Medical History Relation Name Comments Diabetes Father Hypertension Father trigeminal Father trigeminal neur algia Atrial fibrillation Mother Hypothyroidism Mother Relation Name Status Comments Father Alive Mother Social History Tobacco Use Types Packs/Day Years Used Date Smoking Tobacco: Every Day Cigarettes Smokeless Tobacco: Never Tobacco Cessation:Ready to Q uit: Not Asked; Counseling Given: Not Answered Alcohol Use Standard Drinks/Week Comments Not Currently 0 (1 standard drink = 0.6 oz pur e alcohol) Comments Unknown Sex and Gender Information Value Date Recorded Sex Assigned at Not on file Legal Sex Female 3:04 PM CDT Gender Identity Not on file Sexual Orientation Not on file Last Filed Vital Signs Vital Sign Reading Time Taken Comments Blood Pressure - - Pulse - - Temperature - - Respiratory Rate - - Oxygen Saturation - - Inhaled Oxygen Concentration - - Weight 81.6 kg (180 lb) 11/13/2024 3:13 PM CDT Height 160 cm (5' 3 ) 11/13/2024 3:13 PM CDT Body Mass Index 31.89 11/13/2024 3:13 PM CDT Plan of Treatment Upcoming Encounters Date Type Department Care Team (Latest Contact Info) Description 11/16/2024 12:10 PM CDT [facility] [address] [place] [address] Carlyle Calderon MD [address] [address] 11/16/2024 12:10 PM CDT - 11/16/2024 1:40 PM CDT [facility] [address] [place] [address] Carlyle Calderon MD [address] [address] BILATERAL URETEROSCOPY WITH HOLMIUM LASER LITHOTRIPSY AND STONE EXTRACTION Scheduled Procedures Name Priority Associated Diagnoses Date/Ti me URETEROSCOPY WITH HOLMIUM LASER RIGHT URETERAL STONE 11/16/2024 12:10 PM CDT CYSTOSCOPY RETROGRADE PYELOGRAMS RIGHT URETERAL STONE 11/16/2024 12:10 PM CDT CYSTOSCOPY STENT INSERTION (SINGLE / BILATERAL) RIGHT URETERAL STONE 11/16/2024 12:10 PM CDT Health Maintenance Due Date Last Done Comments Hepatitis C Virus (HCV) Screening 1979 Mammogram 1979 TdaP Immunization 1979 Hepatitis B Immunization (1 of 3 - 19+ 3-dose series) 1998 Discussion re Starting/Frequ ency of Mammograms 2019 Colonoscopy 02/26/2024 Colorectal Cancer Screening 02/26/2024 SARS-COV-2 Immunization (2023- season) 2024 Influenza Immunization (Seas on Ended) 2025 Respiratory Syncytial Virus (RSV) Immunization (Adult) (1 - 1-dose 75+ series) 2054 Meningococcal Immunization (ACWY) Aged Out No longer eligible based on patient's age to complete this topic Pneumococcal Immunization Combined Aged Out No longer eligible based on patient's age to complete this topic Rotavirus Immunization Aged Out No lo nger eligible based on patient's age to complete this topic Insurance MEDICAID [place]
--- OUTSIDE RECORDS SUMMARY | 2024-11-13 21:54 | XMS_ITS | Encounter Summary ---
Author Organization [facility] Address [address] [place] [address] Phone Care Team Providers Care Clinical Fellow Name Role Phone Unavailable Primary Care Provider Unavailabl e Encounter Details Date Type Department Care Team (Late st Contact Info) Description 11/12/[address] [facility] [address] [place] [address] Carlyle Calderon MD [address] [address] Social History Tobacco Use Types Packs/Day Years Used Date Smoking Tobacco: Never Assessed Comments Unknown Sex and Gender Information Value Date Recorded Sex Assigned at Not on file Legal Sex Female 3:04 PM CDT Gender Identity Not on file Sexual Orientation Not on file documented as of this encounter Miscellaneous Notes * Telephone Encounter - Rylie Garcia RN - 11/12/2024 10:15 AM CDT Spoke with Dr. Calderon about pt. MD is wanting to schedule surgery for pt. Called pt to schedulesurgery. No answer. Left message on voicemail for pt to call back. documented in this encounter Plan of Treatment Upcoming Encounters Date Type Department Care Team (Latest Contact Info) Description 11/16/2024 12:10 PM CDT [facility] [address] [place] [address] Carlyle Calderon MD [address]2 [facility] [address] [place] [address] 11/16/2024 12:10 PM CDT - 11/16/2024 1:40 PM CDT Surgery [facility] Periop [address] [place] [address] Carlyle Calderon MD [address]IN, [address] [address] BILATERAL URETEROSCOPY WITH HOLMIUM LASER LITHOTRIPSY AND STONE EXTRACTION Scheduled Procedures Name Priority Associated Diagnoses Date/Ti pa URETEROSCOPY WITH HOLMIUM LASER RIGHT URETERAL STONE 11/16/2024 12:10 PM CDT CYSTOSCOPY RETROGRADE PYELOGRAMS RIGHT URETERAL STONE 11/16/2024 12:10 PM CDT CYSTOSCOPY STENT INSERTION (SINGLE / BILATERAL) RIGHT URETERAL STONE 11/16/2024 12:10 PM CDT documented as of this encounter Visit Diagnoses Not on filedocumented in this encounter
--- OUTSIDE RECORDS SUMMARY | 2024-11-13 21:54 | XMS_ITS | Encounter Summary ---
Author Organization [facility] Address [address] [place] [address] Phone Care Team Providers Care Director Of Marketing Operations Name Role Phone Unavailable Primary Care Provider Unavailabl e Reason for Referral * Other (Routine) - Open Specialty Diagnoses / Procedures Referred By Lluvia t Referred To Contact Urology Diagnoses Right ureteral stone Procedures UROLOGY PROCEDURE Carlyle Calderon MD [address] [address] Phone: tel: fax: Referral ID Status Reason Start Date Expiration Date Visits Re quested Visits Authorized [id number] Open 11/13/2024 1 1 Encounter Details Date Type Department Care Team (Late st Contact Info) Description 11/13/2024 Telephone [facility] [address] [place] [address] Carlyle Calderon MD #[address] [address] Social History Tobacco Use Types [...] Telephone Encounter - Rylie Garcia RN - 11/13/2024 1:38 PM CDT Cystoscopy, bilateral ureteroscopy with stone extraction, possible retrograde pyelography, laser lithotripsy and stent placement [id number] scheduled for 11/16/2024. documented in this encounter Plan of Treatment Upcoming Encounters Date Type Department Care Team (Latest Contact Info) Description 11/16/2024 12:10 PM CDT [facility] [address] [place] [address] Carlyle Claderon MD #[address] [address] 11/16/2024 12:10 PM CDT - 11/16/2024 1:40 PM CDT [facility] [address] [place] [address] Carlyle Calderon MD [address] [address] BILATERAL URETEROSCOPY WITH HOLMIUM LASER LITHOTRIPSY AND STONE EXTRACTION Scheduled Orders Name Type Priority Associated Diagnoses Orde r Schedule UROLOGY PROCEDURE Procedures Routine Right ureteral stone Expected: 11/16/2024, Expires: 11/13/2025 Scheduled Procedures Name Priority Associated Diagnoses Date/Ti me URETEROSCOPY WITH HOLMIUM LASER RIGHT URETERAL STONE 11/16/2024 12:10 PM CDT CYSTOSCOPY RETROGRADE PYELOGRAMS RIGHT URETERAL STONE 11/16/2024 12:10 PM CDT CYSTOSCOPY STENT INSERTION (SINGLE / BILATERAL) RIGHT URETERAL STONE 11/16/2024 12:10 PM CDT documented as of this encounter Visit Diagnoses Diagnosis Right ureteral stone- Primary Calculus of ureter documented in this encounter
--- OUTSIDE RECORDS SUMMARY | 2024-11-13 21:54 | XMS_ITS | Clinical Summary ---
Author Organization [facility] Address [address] [place] [address] Care Team Providers Care Jig Maker Name Role Phone Damian Sadler MD Primary Care Provider [phone] Source Comments [facility],non-owned Affiliates and Associated Physician Practices is amultiple site organization consisting of ambulatory clinics and hospital sitesin [place], [place], [place]. This disclosure is being madepursuant to the Care Everywhere program and may not contain all information available regarding this patient. Last updated 18.[facility] Allergies Active Allergy Reactions Criticality Noted Date [...] VACCINE (1 - 2023-2 5 season) 2024 DEPRESSION SCREENING 08/12/2024 INFLUENZA VACCINE (Season Ended) 2025 06/24/2015, 05/12/2015 SCREENING FOR DIABETES 02/02/2027 , 06/04/2019 ZOSTER VACCINE (1 of 2) 2029 [...] Resulting Agency Comment [facility]: [facility] [address] [facility] [address] [facility] [id number] Nancy Cotto MD LAB - CHEMISTRY [facility] INSURANCE BILL [address] [place] [address] * (ABNORMAL) COMPREHENSIVE METABOLIC PANEL (02/03/2024 1:03 AM [facility]) BUN 9 7 - 26 mg/dL [...] 1.1 - 2.3 02/03/2024 1:45 AM CDT [facility] eGFR by CKD-EPI >90 >=90 mL/min/1.7 3 m2 02/03/2024 1:45 AM T [facility] Blood BLOOD SPECIMEN / Unknown Venipuncture / Unknown 02/03/2024 1:03 AM CDT 02/03/2024 1:17 AM CDT Kaylee Reyes MD LAB - CHEMISTRY [facility] [address] [place] [address], [facility] [phone] from Last 3 Months or Most Recently Relevant to Health Maintenance Care Teams Jig Maker Relationship Specialty Start Date End Date Damian Sadler MD PCP - General Internal Medicine 07/04/16
--- NOTE | 2024-11-13 22:33 | ED.FEMALEGU ---
HPI - Female Genitourinary General Chief complaint: Urogenital-Female Stated complaint: Bilat flank pain-left worse than right Time Seen by Provider: 11/13/24 22:13 History of Present Illness HPI Narrative: Patient is a 44-year-old female who presents to the ER with complaints of left flank pain is been going on intermittently for the past three weeks. She has a significant history of kidney stones. Patient recently had a lithotripsy on her right side. She presents to the ER today with increased pain along her left flank. Patient reports she is supposed to have a procedure with Dr. Gonzalez this coming Saturday. She reports she messaged him and he told her if she developed significant pain she should come into the ER for pain control and earlier surgery evaluation. Pt denies any other significant medical history relevant to this ER visit. She denies any recent fevers, vaginal discharge, pelvic pain, rashes, urinary incontinence, concern of . Related Data Home Medications ?Medication ?Instructions ?Recorded ?Confirmed ?Last Taken ?Type multivitamin 1 tablet PO DAILY 04/04/22 10/21/24 10/20/24 History pregabalin 150 mg capsule 150 mg PO Q8H PRN pain 02/21/24 10/21/24 10/20/24 History hydrochlorothiazide 25 mg tablet 25 mg PO DAILY 10/21/24 10/21/24 10/20/24 History nebivolol 10 mg tablet (Bystolic) 10 mg PO DAILY 10/21/24 10/21/24 10/20/24 History Allergies Allergy/AdvReac Type Severity Reaction Status Date / Time ketorolac (From Toradol) Allergy Headache,Rash, Verified 11/13/24 21:52 Swollen tongue tramadol AdvReac Mild VOMITING/HE Verified 11/13/24 21:52 ADACHE hydralazine AdvReac Headache Verified 11/13/24 21:52 [facility] Past Medical History Medical History Hypertension Gastroesophageal reflux disease Sleep paralysis, recurrent isolated Smoker Obesity Depression Multiple kidney stones Seasonal allergies Surgical History Surgical History H/O ureteroscopy 10/21/24 on the right due to proximal ureteral stone; Dr Gonzalez History of laparoscopic cholecystectomy on 04/25/23 PDC History of tubal ligation History of endometrial ablation (2010) History of hysterectomy (2016) History of open reduction and internal fixation (ORIF) procedure (2012) Left elbow. History of section 2000, 2001, 2009 Status post cystoscopy with ureteral stent placement Family History Family History Mother Diabetes mellitus Depression Alcoholism Father Hypertension Sibling Congenital heart disease Son Asthma Grandparent Diabetes mellitus Cerebrovascular accident Social History Social History Social History: Surrogate medical decision maker: Bang Luke, spouse. Code status: Full code. Smoking packs per day: 0.5 Smoking cigarettes per day: 10.0 Years smoked: 32 Smoking pack-years: 16.00 Smoking status: Current every day smoker Tobacco type: cigarettes Alcohol intake: never Alcohol use details: Social alcohol use in moderation. Substance use: never Substance use type: does not use Do You Feel Safe in your Home?: Yes Lack of Transportation: No Lack of Food: Never True Current Housing: I Have Housing Concerned About Future Housing: No Difficulty Paying Gas/Electric Bills: No Difficulty Paying for Meds: No Currently Unemployed: No Education: High School Diploma/GED Difficulty w/ Childcare or Family Care: No Living arrangements: with family Spiritual care concerns: No Course Vital Signs Vital signs: Vital Signs Temperature 36.4 C 11/13/24 21:53 Pulse Rate 74 11/13/24 21:53 Respiratory Rate 14 11/13/24 21:53 Blood Pressure 198/123 H 11/13/24 21:53 Pulse Oximetry 98 11/13/24 21:53 Oxygen Delivery Room Air 11/13/24 21:53 Temperature 36.4 C 11/13/24 21:53 Pulse Rate 80 11/14/24 02:22 Respiratory Rate 20 11/14/24 02:21 Blood Pressure 163/136 H 11/14/24 02:21 Pulse Oximetry 95 11/14/24 02:21 Oxygen Delivery Room Air 11/13/24 21:53 MDM - Female Genitourinary MDM Narrative Medical decision making narrative: Patient is a 44-year-old female who presents to the ER with complaints of left flank pain is been going on intermittently for the past three weeks. She has a significant history of kidney stones. Patient recently had a lithotripsy on her right side. She presents to the ER today with increased pain along her left flank. Patient reports she is supposed to have a procedure with Dr. Gonzalez this coming Saturday. She reports she messaged him and he told her if she developed significant pain she should come into the ER for pain control and earlier surgery evaluation. Pt denies any other significant medical history relevant to this ER visit. She denies any recent fevers, vaginal discharge, pelvic pain, rashes, urinary incontinence, concern of . Labs Ordered: CBC, CMP, UA Imaging Ordered: CT abdomen pelvis Medications Ordered: Zofran 4 mg IV, 1 L normal saline IV, Dilaudid 0.5 mg IV, Dilaudid 1 mg IV Results: Patient's CT abdomen pelvis indicates Redemonstration of a partially obstructing 4 mm calculus within the proximal left ureter, unchanged from prior. Fatty infiltration of a markedly enlarged liver. Diagnosis: Partially obstructing 4 mm calculus in left ureter, renal colic, chronic uncontrolled HTN Consults: 2430- Spoke with Dr. Alejandro who agrees to consult pt once she is admitted to the hospital. He requested pt receive a KUB. Dr. Alejandro reports pt can be admitted under the hospital service and should be NPO at midnight. Patient Education/Shared MDM: Results of CT scan shared with patient. She endorses improvement mild improvement following pain medication administration. 0155- Spoke with hospitalist, who is in agreement with plan for admission. He requested pt's BP medications be given prior to her admission to the hospitalist. Differential Diagnosis Differential diagnosis: Likely urinary tract infection Lab Data Attestation: I reviewed the patient's lab results. 11/13/24 22:58 11/13/24 22:58 Labs: Lab Results 11/13/24 11/13/24 Range/Units 22:42 22:58 WBC 9.6 (4.5-10.0) K/mm3 RBC 4.47 (4.2-5.4) M/mm3 Hgb 13.7 (12.0-15.0) g/dL Hct 39.7 (37.0-47.0) % MCV 88.8 (80-100) fl MCH 30.6 (26-34) pg MCHC 34.5 (32-36) g/dl RDW 12.8 (11.5-14.5) % Plt Count 228 (150-375) k/mm3 MPV 10.3 (7.4-10.4) fl Immature Gran % (Auto) 0.4 (0-0.5) % Neut % (Auto) 58.9 (45.5-73.1) % Lymph % (Auto) 29.2 (18.3-44.2) % [place] % (Auto) 9.1 H (2.6-8.5) % Eos % (Auto) 2.0 (0-4.4) % Baso % (Auto) 0.4 (0.2-1.2) % Lymph # (Auto) 2.80 (0.9-3.2) K/mm3 [place] # (Auto) 0.9 H (0.1-0.6) K/mm3 Eos # (Auto) 0.2 (0-0.3) K/mm3 Baso # (Auto) 0.0 (0.0-0.1) K/mm3 Abs Immat Gran (auto) 0.04 H (0.00-0.031) K/mm3 Absolute Neuts (auto) 5.7 (1.3-6.7) K/mm3 Absolute Nucleated RBC 0.000 (0.0-0.012) K/mm3 Nucleated RBC % 0.0 (0.0-0.2) % Sodium 139 (137-145) mmol/L Potassium 3.7 (3.4-5.0) mmol/L Chloride 104 (98-107) mmol/L Carbon Dioxide 22 (22-30) mmol/L Anion Gap 13 H (4-12) mmol/L BUN 14 (7-17) mg/dL Creatinine 0.59 L (0.7-1.0) mg/dL Estim Creat Clear Calc 107 ml/min Estimated GFR > 60 (59 - ) Glucose 87 (65-110) mg/dL Calcium 9.4 (8.4-10.2) mg/dL Total Bilirubin 0.3 (0.2-1.3) mg/dL AST 34 (14-36) U/L ALT 49 H (6-35) U/L Alkaline Phosphatase 79 (38-126) U/L Total Protein 7.0 (6.3-8.2) g/dL Albumin 4.3 (3.5-5.1) g/dL Urine Color Yellow (Yellow) Urine Appearance Clear (Clear) Urine pH 5.5 (5.0-9.0) Ur Specific [place] 1.026 (1.001-1.035) Urine Protein Negative (Negative) mg/dL Urine Glucose (UA) Negative (Negative) mg/dL Urine Ketones Trace H (Negative) mg/dL Ur Blood (Man) 1+ H (Negative) Urine Nitrate Negative (Negative) Urine Bilirubin Negative (Negative) Urine Urobilinogen 0.2 (<2.0) mg/dL Leukocyte Esterase Rfl Negative (Negative) ALEKSANDRA/UL Urine RBC 6-10 H (0-2) /hpf Urine WBC 0-5 (0-3) /hpf Ur Squamous Epith Cells Few (Few) /hpf Urine Bacteria None seen /hpf Urine Casts 0-2 Imaging Data Attestation: I personally reviewed and interpreted this imaging study as follows: Radiologist's impression: Impressions Abdomen/Pelvis CT 11/13/24 23:38 IMPRESSION: Redemonstration of a partially obstructing 4 mm calculus within the proximal left ureter, unchanged from prior. Fatty infiltration of a markedly enlarged liver. Discharge Plan Discharge Clinical Impression: Renal colic, Kidney stone on left side, Chronic hypertension Patient Disposition: Still a Patient Condition: Stable Time of Disposition: 02:01
[2024-11-13 22:56] LABS: Add Urine Microscopic? YES; Appearance Urine Clear (Clear); Bacteria Urine None Seen /hpf; Bilirubin Urine Negative (Negative); Blood Urine 1+ (Negative); Color Urine Yellow (Yellow); Glucose Urine UA Negative (Negative); Ketones Urine Trace mg/dL (Negative); Leukocyte Esterase Ur Negative LEU/UL (Negative); Nitrate Urine Negative (Negative); Non Pathogenic Casts 0-2; Protein Urine Negative (Negative); Specific Grav Ur 1.026 (1.001-1.035); Squamous Epithelial Cell Urine Few /hpf (Few); Urobilinogen Urine 0.2 mg/dL (<2.0); WBC Urine 0-5 /hpf (0-3); pH Urine 5.5 (5.0-9.0)
--- OUTSIDE RECORDS SUMMARY | 2024-11-13 22:57 | XMS_ITS | CONTINUITY OF CARE DOCUMENT ---
Author Name [email or web address] Address Unknown Organization [facility] Address [address] [place] [address] Phone [phone] Care Team Providers Care Pattern Painter Name Role Phone William CURIEL, Herlinda Unavailable SHAWNEE CURIEL, NABIL Schmidt Unavailable INSURANCE PROVIDERS Payer name Policy type / Coverage type Bj red libertarian [place] [employer] Medicaid [id number] [facility] [id number]
--- OUTSIDE RECORDS SUMMARY | 2024-11-13 22:57 | XMS_ITS | Clinical Summary ---
Author Organization [facility] Address [address] [place] [address] Care Team Providers Care Marketing Assistant Manager Name Role Phone Damian Sadler MD Primary Care Provider [phone] Source Comments [facility],non-owned Affiliates and Associated Physician Practices is amultiple site organization consisting of ambulatory clinics and hospital sitesin [place], [place] and [place]. This disclosure is being madepursuant to the Care Everywhere program and may not contain all information available regarding this patient. Last updated 18.[facility] Allergies Active Allergy Reactions Criticality Noted Date [...] Resulting Agency Comment [facility]: [facility] [address] [id number] Nancy Cotto MD LAB - CHEMISTRY [facility] INSURANCE BILL [address] [place] [address] * (ABNORMAL) COMPREHENSIVE METABOLIC PANEL (02/03/2024 1:03 AM [facility]) BUN 9 7 - 26 mg/dL 02/03/2024 1:45 AM [facility] Creatinine 0.64 0.56 - 0.96 mg/dL 02/03/2024 1:45 AM [facility] Sodium 139 136 - 145 mmol/L 02/03/2024 1:45 AM [facility] Potassium 3.4(L) 3.5 - 4.5 mmol/L 02/03/2024 1:45 AM [facility] Chloride 107 98 - 107 mmol/L 02/03/2024 1:45 AM [facility] CO2 21(L) 22 - 29 mmol/L 02/03/2024 1:45 AM [facility] Glucose 78 70 - 115 mg/dL 02/03/2024 1:45 AM [facility] Calcium 9.9 8.4 - 10.2 mg/dL 02/03/2024 1:45 AM [facility] Protein Total 7.7 6.0 - 8.3 [...] mL/min/1.7 3 m2 02/03/2024 1:45 AM [facility] Blood BLOOD SPECIMEN / Unknown Venipuncture / Unknown 02/03/2024 1:03 AM CDT 02/03/2024 1:17 AM CDT Kaylee Reyes MD LAB - CHEMISTRY [facility] [address] [place] [address], [facility] [phone] from Last 3 Months or Most Recently Relevant to Health Maintenance Care Teams Marketing Assistant Manager Relationship Specialty Start Date End Date Damian Sadler MD PCP - General Internal Medicine 07/04/16
--- OUTSIDE RECORDS SUMMARY | 2024-11-13 22:57 | XMS_ITS | Referral Summary ---
Author Organization [facility] Address [address] [place] [address] Care Team Providers Care Optometrist/Practice Owner Name Role Phone Lucas Carter DO Primary Care Provider [phone] Encounters Date Type Department Care Team Description 10/31/2024 4:48 PM CDT - 10/31/2024 10:51 PM CDT Emergency [facility] Emergency Department [address] [place] [address] Yanni Garcia MD Flank pain (Primary Dx) Discharge Disposition: Discharge to home or self care from Last 3 Months Allergies Active Allergy Reactions Criticality Noted Date Comments Hydralazine Headache,Vomiting Low 01/21/2024 Ketorolac Hives,Itching Medium 10/17/2017 Tramadol Hives,Urticaria Medium 08/27/2016 Medications omeprazole (PriLOSEC) 20 mg capsuleIndications :Treatment of Non-Bleeding Gastric Disorder Take 1 capsule (20 mg total) by mouth money counter 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 Active MULTIVIT-MINERALS/ FERROUS FUM (MULTI VITAMIN ORAL)Indications:h ealth Take 1 tablet by mouth money counter 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 Active ondansetron ODT (ZOFRAN-ODT) 4 [...] 1 tablet (25 mg total) by mouth money counter 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 Active nebivoloL (BYSTOLIC) 10 mg [...] on file Legal Sex Female 9:06 PM [employer] Gender Identity Female 10/01/2023 8:44 AM [employer] Sexual Orientation Straight 10/01/2023 8: 44 AM [employer] Last Filed Vital Signs Vital Sign Reading [...] cm (5' 3 ) 06/29/2024 7:50 AM [employer] Body Mass Index 32.57 06/29/2024 7:50 AM [employer] Plan of Treatment Not on file Goals [...] on stairs Contact your local community or [facility] for information on exercise, fall prevention programs, or options for improving home safety. Medical Devices Implanted Type Area Garment Examiner Device Identifier Shelf Expiration Date Model / [...] MD LAB BLOOD ORDERABLES Final R esult [facility] Department [place] [address] * (ABNORMAL) Differential, auto (10/31/2024 5:42 PM CDT) Neutrophil abs 5.6 1.5 - 6.5 K/cumm Imm gran abs 0.0 0.0 - 0.1 K/cumm [facility] Lymphocyte abs 2.3 0.8 - 3.3 K/cumm [facility] Monocyte abs 0.9(H) 0.2 - 0.8 K/cumm [facility] Eosinophil abs 0.1 0.0 - 0.5 K/cumm [facility] Basophil abs 0.1 0.0 - 0.1 K/cumm [facility] Neutrophil pct 62.4 % [facility] Comment: Interpretive Data Percent cell count reference ranges are not reported, since discordance with absolute values may lead to misinterpretation of CBC data. Current Interpretive Data was last revised on 2017. Imm gran pct 0.3 % [facility] Comment: Interpretive Data Percent cell count reference ranges are not reported, since discordance with absolute values may lead to misinterpretation of CBC data. Current Interpretive Data was last revised on 2017. Lymphocyte pct 25.2 % [facility] Comment: Interpretive Data Percent cell count reference ranges are not reported, since discordance with absolute values may lead to misinterpretation of CBC data. Current Interpretive Data was last revised on 2017. Monocyte pct 10.0 % [facility] Comment: Interpretive Data Percent cell count reference ranges are not reported, since discordance with absolute values may lead to misinterpretation of CBC data. Current Interpretive Data was last revised on 2017. Eosinophil pct 1.5 % [facility] Comment: Interpretive Data Percent cell count reference ranges are not reported, since discordance with absolute values may lead to misinterpretation of CBC data. Current Interpretive Data was last revised on 2017. Basophil pct 0.6 % [facility] Comment: Interpretive Data Percent cell count reference ranges are not reported, since discordance with absolute values may lead to misinterpretation of CBC data. Current Interpretive Data was last revised on 2017. Blood 10/31/2024 5:42 PM CDT 10/31/2024 5:51 PM CDT us Severo Mckeon MD LAB BLOOD ORDERABLES Final R esult [facility] Department [place] [address] * Urinalysis reflex to microscopic and culture Urine (10/31/2024 5:42 PM CDT) Color, ur Straw Yellow Clarity, ur Clear Clear [facility] Specific gravity, ur 1.011 1.003 - 1.030 [facility] pH, urine 5.5 [facility] Comment: Interpretive Data U rine pH is affected by diet, medications, systemic acid-base disturbances, and renal tubular function. pH may affect urinary stone formation. For example, urine pH below 6.0 may help reduce the tendency for calcium phosphate stones and pH greater than 6.0 may reduce the tendency for uric acid stone formation. Source: [facility] Current Interpretive Data was last revised on 2017 Protein, ur ql Negative Negative [facility] Glucose, ur ql Negative Negative [facility] Ketones, ur Negative Negative [facility] Bilirubin, ur Negative Negative [facility] Blood, ur Negative Negative [facility] Urobilinogen, ur <2.0 <2.0 mg/dL [facility] Nitrite, ur Negative Negative [facility] Leukocyte esterase, ur Negative Negative [facility] UA reflex comment Reflex conditions for microscopic UA and culture not met. [facility] Urine 10/31/2024 5:42 PM CDT 10/31/2024 5:49 PM CDT us Minda Gurrola MD LAB MICROBIOLOGY - GENER AL ORDERABLES Final Result [facility] [place] [address] * (ABNORMAL) CBC with auto differential (10/31/2024 5:42 PM CDT) WBC 8.9 3.8 - 9.9 K/cumm Hgb 16.1(H) 11.9 - 15.5 g/dL [facility] Hct 45.8(H) 35.6 - 45.5 % [facility] Plt 319 150 - 400 K/cumm [facility] MPV 9.2 9.1 - 12.3 fL [facility] RBC 5.35(H) 3.90 - 5.20 M/cumm [facility] MCV 85.6 81.3 - 96.4 fL [facility] MCH 30.1 27.1 - 33.3 pg [facility] MCHC 35.2 32.3 - 35.7 g/dL [facility] RDW CV 12.5 11.1 - 14.9 % [facility] RDW SD 38.8 35.7 - 48.1 fL [facility] NRBC abs 0.00 0.00 - 0.01 K/cumm [facility] Blood Venous blood specimen / Unknown 10/31/2024 5:42 PM CDT 10/31/2024 5:51 PM CDT us Yanni Garcia MD LAB BLOOD ORDERABLES Final Result [facility] [place] [address] * Lipase (10/31/2024 5:42 PM CDT) Pathologist [facility] Lipase 41 10 - 99 Units/L Blood Venous blood specimen / Unknown 10/31/2024 5:42 PM CDT 10/31/2024 5:51 PM CDT us Yanni Garcia MD LAB BLOOD ORDERABLES Final Result [facility] Department [place] [address] * (ABNORMAL) Comprehensive metabolic panel (10/31/2024 5:42 PM CDT) Sodium 142 135 - 145 mmol/L Potassium, pl 4.2 3.3 - 4.9 mmol/L [facility] Chloride 105 97 - 110 mmol/L [facility] CO2 24 22 - 32 mmol/L [facility] Anion gap 13 2 - 15 mmol/L [facility] BUN 9 6 - 25 mg/dL [facility] Creatinine 0.65 0.60 - 1.10 mg/dL [facility] Glucose 84 70 - 199 mg/dL [facility] [...] 2022. Calcium 10.3 8.5 - 10.3 mg/dL [facility] Bilirubin, total 0.3 0.1 - 1.2 mg/dL [facility] Protein, pl 8.3 6.5 - 8.5 g/dL [facility] Albumin 4.7 3.5 - 5.0 g/dL [facility] Alk phos 105 40 - 130 Units/L [facility] ALT 68(H) 7 - 45 Units/L [facility] AST 48(H) 10 - 45 Units/L [facility] Blood Venous blood specimen / Unknown 10/31/2024 5:42 PM CDT 10/31/2024 5:51 PM CDT Yanni Garcia MD LAB BLOOD ORDERABLES Final Result [facility] [place] [address] * ECG 12-LEAD (10/31/2024 4:30 PM CDT) [...] MD ECG ORDERABLES Final Resul t [facility] from Last 3 Months Insurance IDPA [facility] CHO[employer] [facility] HMO/PPO Address: [address] [address] [place] [address] [facility] IDPA IDPA Advance Directives For more information, please contact: [phone] * Full Code (Latest Code Status on File) Date Activated Date Inactivated Comments 08/15/2022 3:10 PM 08/18/2022 6:09 PM Care Teams Optometrist/Practice Owner Relationship Specialty Start Date End Date Lucas Carter DO PCP - General Internal Medicine 08/15/22
--- OUTSIDE RECORDS SUMMARY | 2024-11-13 22:57 | XMS_ITS | Encounter Summary ---
Author Organization [facility] Address [address] [place] [address] Phone Care Team Providers Care Hardening Machine Operator Name Role Phone Unavailable Primary Care Provider Unavailabl e Encounter Details Date Type Department Care Team (Late st Contact Info) Description 11/12/2024 Telephone [facility] [address] [place] [address] Carlyle Calderon MD [address] [address] Social History Tobacco Use Types [...] Description 11/16/2024 12:10 PM CDT [facility] [address] [place] [address] Carlyle Calderon MD #2 [facility] [address] [place] [address] 11/16/2024 12:10 PM CDT - 11/16/2024 1:40 PM CDT Surgery [facility] Periop [address] [place] [address] Carlyle Calderon MD [address]2 JULIENNE MARIN, [address] [address] BILATERAL URETEROSCOPY WITH HOLMIUM LASER LITHOTRIPSY AND STONE EXTRACTION Scheduled Procedures Name Priority Associated Diagnoses Date/Ti ok URETEROSCOPY WITH HOLMIUM LASER RIGHT URETERAL STONE 11/16/2024 12:10 PM CDT CYSTOSCOPY RETROGRADE PYELOGRAMS RIGHT URETERAL STONE 11/16/2024 12:10 PM CDT CYSTOSCOPY STENT INSERTION (SINGLE / BILATERAL) RIGHT URETERAL STONE 11/16/2024 12:10 PM CDT documented as of this encounter Visit Diagnoses Not on filedocumented in this encounter
--- OUTSIDE RECORDS SUMMARY | 2024-11-13 22:57 | XMS_ITS | Clinical Summary ---
Author Organization [facility] al Address [address] [place] [address] Care Team Providers Care Cadd Manager Name Role Phone Lucas Carter DO Primary Care Provider [phone] Allergies Active Allergy Reactions Criticality Noted Date Comments Hydralazine Headache,Vomiting Low 01/21/2024 Ketorolac Hives,Itching Medium 10/17/2017 Tramadol Hives,Urticaria Medium 08/27/2016 Medications omeprazole (PriLOSEC) 20 mg capsuleIndications :Treatment of Non-Bleeding Gastric Disorder Take 1 capsule (20 mg total) by mouth wildlife control agent 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 Active MULTIVIT-MINERALS/ FERROUS FUM (MULTI VITAMIN ORAL)Indications:h ealth Take 1 tablet by mouth wildlife control agent 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 Active ondansetron ODT (ZOFRAN-ODT) 4 [...] 1 tablet (25 mg total) by mouth wildlife control agent 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 Active nebivoloL (BYSTOLIC) 10 mg [...] CDT - 10/31/2024 10:51 PM CDT Emergency [facility] Emergency Department [address] [place] [address] Yanni Garcia MD Flank pain (Primary Dx) [...] on file Legal Sex Female 9:06 PM INFORMATICS SPECIALIST Gender Identity Female 10/01/2023 8:44 AM INFORMATICS SPECIALIST Sexual Orientation Straight 10/01/2023 8: 44 AM INFORMATICS SPECIALIST Obstetrics History Para Term AB IAB SAB [...] cm (5' 3 ) 06/29/2024 7:50 AM INFORMATICS SPECIALIST Body Mass Index 32.57 06/29/2024 7:50 AM INFORMATICS SPECIALIST Plan of Treatment Health Maintenance Due Date [...] on stairs Contact your local community or [facility] for information on exercise, fall prevention programs, or options for improving home safety. Medical Devices Implanted Type Area Tree Topper Device Identifier Shelf Expiration Date Model / [...] MD LAB BLOOD ORDERABLES Final R esult [facility] [place] [address] * (ABNORMAL) Differential, auto (10/31/2024 5:42 PM CDT) Pathologist [facility] Neutrophil abs 5.6 1.5 - 6.5 K/cumm Imm gran abs 0.0 0.0 - 0.1 K/cumm [facility] Lymphocyte abs 2.3 0.8 - 3.3 K/cumm [facility] Monocyte abs 0.9(H) 0.2 - 0.8 K/cumm [facility] Eosinophil abs 0.1 0.0 - 0.5 K/cumm [facility] Basophil abs 0.1 0.0 - 0.1 K/cumm [facility] Neutrophil pct 62.4 % [facility] Comment: Interpretive Data Percent cell count reference ranges are not reported, since discordance with absolute values may lead to misinterpretation of CBC data. Current Interpretive Data was last revised on 2017. Imm gran pct 0.3 % [facility] Comment: Interpretive Data Percent cell count reference ranges are not reported, since discordance with absolute values may lead to misinterpretation of CBC data. Current Interpretive Data was last revised on 2017. Lymphocyte pct 25.2 % [facility] Comment: Interpretive Data Percent cell count reference ranges are not reported, since discordance with absolute values may lead to misinterpretation of CBC data. Current Interpretive Data was last revised on 2017. Monocyte pct 10.0 % [facility] Comment: Interpretive Data Percent cell count reference ranges are not reported, since discordance with absolute values may lead to misinterpretation of CBC data. Current Interpretive Data was last revised on 2017. Eosinophil pct 1.5 % [facility] Comment: Interpretive Data Percent cell count reference ranges are not reported, since discordance with absolute values may lead to misinterpretation of CBC data. Current Interpretive Data was last revised on 2017. Basophil pct 0.6 % [facility] Comment: Interpretive Data Percent cell count reference ranges are not reported, since discordance with absolute values may lead to misinterpretation of CBC data. Current Interpretive Data was last revised on 2017. Blood 10/31/2024 5:42 PM CDT 10/31/2024 5:51 PM CDT Severo Mckeon MD LAB BLOOD ORDERABLES Final R esult [facility] [place] [address] * Urinalysis reflex to microscopic and culture Urine (10/31/2024 5:42 PM CDT) Color, ur Straw Yellow Clarity, ur Clear Clear [facility] Specific gravity, ur 1.011 1.003 - 1.030 [facility] pH, urine 5.5 [facility] Comment: Interpretive Data U rine pH is affected by diet, medications, systemic acid-base disturbances, and renal tubular function. pH may affect urinary stone formation. For example, urine pH below 6.0 may help reduce the tendency for calcium phosphate stones and pH greater than 6.0 may reduce the tendency for uric acid stone formation. Source: [facility] Current Interpretive Data was last revised on 2017 Protein, ur ql Negative Negative [facility] Glucose, ur ql Negative Negative [facility] Ketones, ur Negative Negative [facility] Bilirubin, ur Negative Negative [facility] Blood, ur Negative Negative [facility] Urobilinogen, ur <2.0 <2.0 mg/dL [facility] Nitrite, ur Negative Negative [facility] Leukocyte esterase, ur Negative Negative [facility] UA reflex comment Reflex conditions for microscopic UA and culture not met. [facility] Urine 10/31/2024 5:42 PM CDT 10/31/2024 5:49 PM CDT Minda Grurola MD LAB MICROBIOLOGY - [facility] ORDERABLES Final Result Performing Organization Address [facility]/ZIP Co de Phone Number [facility] Department [place] [address] * (ABNORMAL) CBC with auto differential (10/31/2024 5:42 PM CDT) [facility] WBC 8.9 3.8 - 9.9 K/cumm Hgb 16.1(H) 11.9 - 15.5 g/dL [facility] Hct 45.8(H) 35.6 - 45.5 % [facility] Plt 319 150 - 400 K/cumm [facility] MPV 9.2 9.1 - 12.3 fL [facility] RBC 5.35(H) 3.90 - 5.20 M/cumm [facility] MCV 85.6 81.3 - 96.4 fL [facility] MCH 30.1 27.1 - 33.3 pg [facility] MCHC 35.2 32.3 - 35.7 g/dL [facility] RDW CV 12.5 11.1 - 14.9 % [facility] RDW SD 38.8 35.7 - 48.1 fL [facility] NRBC abs 0.00 0.00 - 0.01 K/cumm [facility] Blood Venous blood specimen / Unknown 10/31/2024 5:42 PM CDT 10/31/2024 5:51 PM CDT Yanni Garcia MD LAB BLOOD ORDERABLES Final Result [facility] Department [place] [address] * Lipase (10/31/2024 5:42 PM CDT) [facility] Lipase 41 10 - 99 Units/L Blood Venous blood specimen / Unknown 10/31/2024 5:42 PM CDT 10/31/2024 5:51 PM CDT Yanni Garcia MD LAB BLOOD ORDERABLES Final Result [facility] [place] [address] * (ABNORMAL) Comprehensive metabolic panel (10/31/2024 5:42 PM CDT) Sodium 142 135 - 145 mmol/L Potassium, pl 4.2 3.3 - 4.9 mmol/L [facility] Chloride 105 97 - 110 mmol/L [facility] CO2 24 22 - 32 mmol/L [facility] Anion gap 13 2 - 15 mmol/L [facility] BUN 9 6 - 25 mg/dL [facility] Creatinine 0.65 0.60 - 1.10 mg/dL [facility] Glucose 84 70 - 199 mg/dL [facility] Comment: Interpretive Data Fasting glucose >/= [...] Calcium 10.3 8.5 - 10.3 mg/dL [facility] Bilirubin, total 0.3 0.1 - 1.2 mg/dL [facility] Protein, pl 8.3 6.5 - 8.5 g/dL [facility] Albumin 4.7 3.5 - 5.0 g/dL [facility] Alk phos 105 40 - 130 Units/L [facility] ALT 68(H) 7 - 45 Units/L [facility] AST 48(H) 10 - 45 Units/L [facility] Blood Venous blood specimen / Unknown 10/31/2024 5:42 PM CDT 10/31/2024 5:51 PM CDT Yanni Garcia MD LAB BLOOD ORDERABLES Final Result Performing Organization Address City/[facility]/ZIP Co de Phone Number [facility] [place] [address] * ECG 12-LEAD (10/31/2024 4:30 PM CDT) Narrative [facility] - 10/31/2024 4:30 PM CDT Yanni [...] in the ED Yanni Garcia MD 10/31/24 9482 us Yanni Garcia MD ECG ORDERABLES Final Resul t [facility] from Last 3 Months Insurance IDPA [facility] CHOICE PLUS [facility] HMO/PPO Address: [address] [address] [place] [address] [facility] IDPA IDPA Advance Directives For more information, please contact: [phone] * Full Code (Latest Code Status on File) Date Activated Date Inactivated Comments 08/15/2022 3:10 PM 08/18/2022 6:09 PM Care Teams Cadd Manager Relationship Specialty Start Date End Date Lucas Carter DO PCP - General Internal Medicine 08/15/22
--- OUTSIDE RECORDS SUMMARY | 2024-11-13 22:57 | XMS_ITS | Clinical Summary ---
Author Organization [facility] Address [address] [place] [address] Phone Care Team Providers Care Professor Of Rhetoric Name Role Phone Unavailable Primary Care Provider [...] Care Team Description 11/13/2024 Travel 11/13/2024 Telephone [facility] [address] [place] [address] Carlyle Calderon MD 11/12/2024 Telephone [facility] [address] [place] [address] Carlyel Calderon MD from Last 3 Months Family [...] Description 11/16/2024 12:10 PM CDT Hospital Encounter [facility] [address] [place] [address] Carlyle Calderon MD [address] [address] 11/16/2024 12:10 PM CDT - 11/16/2024 1:40 PM CDT Surgery [facility] Periop [address] [place] [address] Carlyle Calderon MD [address] [address] BILATERAL URETEROSCOPY WITH HOLMIUM LASER LITHOTRIPSY AND [...]
--- OUTSIDE RECORDS SUMMARY | 2024-11-13 22:57 | XMS_ITS | Encounter Summary ---
Author Organization [facility] Address [address] [place] [address] Phone Care Team Providers Care Qualification Engineer Name Role Phone Unavailable Primary Care Provider Unavailabl e Reason for Referral * Other (Routine) - Open Specialty Diagnoses / Procedures Referred By Lluvia t Referred To Contact Urology Diagnoses Right ureteral stone Procedures UROLOGY PROCEDURE Carlyle Calderon MD [address] [address] Phone: tel: fax: Referral ID Status Reason Start Date Expiration Date Visits Re quested Visits Authorized [id number] Open 11/13/2024 1 1 Encounter Details Date Type Department Care Team (Late st Contact Info) Description 11/13/2024 Telephone [facility] [address] [place] [address] Carlyle Calderon MD [address] [address] Social History Tobacco Use Types [...] retrograde pyelography, laser lithotripsy and stent placement [id number] scheduled for 11/16/2024. documented in this encounter Plan of Treatment Upcoming Encounters Date Type Department Care Team (Latest Contact Info) Description 11/16/2024 12:10 PM CDT [facility] [address] [place] [address] Carlyle Calderon MD [address] [address] 11/16/2024 12:10 PM CDT - 11/16/2024 1:40 PM CDT [facility] [address] [place] [address] Carlyle Calderon MD [address] [address] BILATERAL URETEROSCOPY WITH HOLMIUM LASER LITHOTRIPSY AND [...]
--- OUTSIDE RECORDS SUMMARY | 2024-11-13 22:57 | XMS_ITS | Encounter Summary ---
Author Organization [facility] Care Team Providers Care Fbi Investigator Name Role Phone Unavailable Primary Care Provider [...] Description 11/16/2024 12:10 PM CDT [facility] [address] [place] [address] Carlyle Calderon MD #[address] [address] 11/16/2024 12:10 PM CDT - 11/16/2024 1:40 PM CDT [facility] [address] [place] [address] Carlyle Calderon MD #[address] [address] BILATERAL URETEROSCOPY WITH HOLMIUM LASER LITHOTRIPSY AND [...]
[2024-11-13] MEDS: SODIUM CHLORIDE 0.9% IV 1,000 ML 999 ML IV CONT (22:58)
[2024-11-13] MEDS: HYDROmorphone HCL INJ (*CRX) 1 MG/ML SYR 0.5 MG IV PUSH (22:59)
[2024-11-13] MEDS: ONDANSETRON INJ 4 MG/2 ML VIAL IV PUSH (22:59)
[2024-11-13 23:04] VITALS: BP 204/126; PULSE 76; RESP 18; O2SAT 95
[2024-11-13 23:09] LABS: Basophils Percent Auto 0.4 % (0.2-1.2); Eosinophils Absolute Auto 0.2 K/mm3 (0-0.3); Hematocrit 39.7 % (37.0-47.0); Hemoglobin 13.7 g/dL (12.0-15.0); Immature Granulocyte Absolute 0.04 K/mm3 (0.00-0.031); Immature Granulocyte Percent A 0.4 % (0-0.5); Lymphocytes Percent Auto 29.2 % (18.3-44.2); Mean Corpuscular HGB Conc 34.5 g/dl (32-36); Mean Corpuscular Hemoglobin 30.6 pg (26-34); Mean Corpuscular Volume 88.8 fl (80-100); Mean Platelet Volume 10.3 fl (7.4-10.4); Monocytes Absolute Auto 0.9 K/mm3 (0.1-0.6); Monocytes Percent Auto 9.1 % (2.6-8.5); Neutrophils Absolute Auto 5.7 K/mm3 (1.3-6.7); Neutrophils Percent Auto 58.9 % (45.5-73.1); Platelet Count Result 228 k/mm3 (150-375); Red Blood Count 4.47 M/mm3 (4.2-5.4); Red Cell Distribution Width 12.8 % (11.5-14.5); White Blood Count 9.6 K/mm3 (4.5-10.0)
[2024-11-13 23:19] LABS: Alanine Aminotransferase 49 U/L (6-35); Albumin Level 4.3 g/dL (3.5-5.1); Alkaline Phosphatase 79 U/L (38-126); Anion Gap 13 mmol/L (4-12); Aspartate Amino Transferase 34 U/L (14-36); Bilirubin,Total 0.3 mg/dL (0.2-1.3); Blood Urea Nitrogen 14 mg/dL (7-17); Calcium 9.4 mg/dL (8.4-10.2); Carbon Dioxide 22 mmol/L (22-30); Chloride 104 mmol/L (98-107); Estimated CRCL calculation 107 ml/min; Estimated Glomerular Filt Rate > 60; Glucose 87 mg/dL (65-110); Potassium 3.7 mmol/L (3.4-5.0); Sodium 139 mmol/L (137-145)
[2024-11-14] VITALS (19 sets, daily range): BP systolic 129–184; BP diastolic 86–136; PULSE 57–90; RESP 14–20; TEMP 36.1–37; O2SAT 92–99; BMI 34.9
[2024-11-14] MEDS: HYDROmorphone HCL INJ (*CRX) 1 MG/ML SYR IV PUSH ×4 (00:14→10:58)
[2024-11-14] MEDS: NEBIVOLOL HCL 5 MG TABLET 10 MG PO ×2 (02:22→06:26)
--- NOTE | 2024-11-14 02:58 | ADMGEN ---
This patient, Renee Luke, was admitted to Medical Room 343-01. Patient/family oriented to hospital policies and general routines including ID bracelet, bed and alarms, visiting hours, pain management, procedures, bathroom and other care routines, personal items, smoking policy, room service/diet, and visiting hours. Information on how to activate the Rapid Response Team has been discussed. Patient/Family are encouraged to report perceived risks to care and to ask questions if they do not understand what they are told or what they should do.
[2024-11-14] MEDS: SODIUM CHLORIDE 0.9% IV 1,000 ML 125 ML IV CONT (04:11)
--- NOTE | 2024-11-14 05:54 | PM.IMHP ---
H&P: HPI History of Present Illness Date/Time: 11/14/24 05:54 Chief Complaint: Flank pain Narrative: This is a 44-year-old female who presents to [place] ER with complaint of left flank pain going on intermittently for 3 weeks. She has history of kidney stones, hypertension, GERD, obesity, tobacco dependence. Patient was scheduled for procedure on November [address] Gonzalez. She again contacted him was told to present to the ER for pain control and surgical evaluation. ER evaluation included CT abdomen pelvis demonstrating a partially obstructing 4 mm calculus within the proximal left ureter which is unchanged from prior. Patient was given Zofran, 1 L normal saline, Dilaudid total 1.5 mg IV. SBP elevated to 180. Review of Systems Review of Systems: All systems reviewed & are unremarkable except as noted in HPI and below (HPI) [facility] Past Medical History Medical History Hypertension Gastroesophageal reflux disease Sleep paralysis, recurrent isolated Smoker Obesity Depression Multiple kidney stones Seasonal allergies Surgical History Surgical History H/O ureteroscopy 10/21/24 on the right due to proximal ureteral stone; Dr Gonzalez History of laparoscopic cholecystectomy on 04/25/23 PDC History of tubal ligation History of endometrial ablation (2009) History of hysterectomy (2015) History of open reduction and internal fixation (ORIF) procedure (2012) Left elbow. History of section 2000, 2001, 2009 Status post cystoscopy with ureteral stent placement Family History Family History Mother Diabetes mellitus Depression Alcoholism Father Hypertension Sibling Congenital heart disease Son Asthma Grandparent Diabetes mellitus Cerebrovascular accident Social History Social History Social History: Surrogate medical decision maker: Bang Luke, spouse. Code status: Full code. Smoking packs per day: 0.5 Smoking cigarettes per day: 10.0 Years smoked: 32 Smoking pack-years: 16.00 Smoking status: Current every day smoker Tobacco type: cigarettes Second hand tobacco smoke exposure: Yes Alcohol intake: never Alcohol use details: Social alcohol use in moderation. Substance use: never Substance use type: does not use Do You Feel Safe in your Home?: Yes Lack of Transportation: No Lack of Food: Never True Current Housing: I Have Housing Concerned About Future Housing: No Difficulty Paying Gas/Electric Bills: No Difficulty Paying for Meds: No Currently Unemployed: No Education: Associate Degree Difficulty w/ Childcare or Family Care: No Living arrangements: with family Spiritual care concerns: No Meds Home Medications and Allergies Home Medications ?Medication ?Instructions ?Recorded ?Confirmed ?Type multivitamin 1 tablet PO DAILY 04/04/22 11/14/24 History pregabalin 150 mg capsule 150 mg PO Q8H PRN pain 02/21/24 11/14/24 History losartan 50 mg tablet 50 mg PO BID #180 tabs 03/30/24 11/14/24 Rx ondansetron 4 mg disintegrating 4 mg PO Q8H #14 tabs 10/12/24 11/14/24 Rx tablet tamsulosin 0.4 mg capsule 0.4 mg PO DAILY #14 caps 10/18/24 11/14/24 Rx cephalexin 500 mg capsule 500 mg PO Q12H #10 caps 10/21/24 11/14/24 Rx hydrochlorothiazide 25 mg tablet 25 mg PO DAILY 10/21/24 11/14/24 History hydrocodone 5 mg-acetaminophen 325 1 tablet PO Q8H PRN pain #10 tabs 10/21/24 11/14/24 Rx mg tablet nebivolol 10 mg tablet (Bystolic) 10 mg PO DAILY 10/21/24 11/14/24 History acetaminophen 500 mg capsule 1,000 mg (2 x 500 mg) PO Q6H PRN 10/25/24 11/14/24 Rx pain #30 caps hydrocodone 5 mg-acetaminophen 325 1 tablet PO Q8H PRN pain #10 tabs 10/25/24 11/14/24 Rx mg tablet ondansetron 4 mg disintegrating 4 mg PO Q8H PRN nausea and 10/25/24 11/14/24 Rx tablet vomiting #7 tabs phenazopyridine 100 mg tablet 100 mg PO TID PRN pain 2 days #5 10/25/24 11/14/24 Rx tabs ondansetron 4 mg disintegrating 4 mg PO Q6H PRN nausea and 10/31/24 11/14/24 Rx tablet vomiting #14 tabs phenazopyridine 200 mg tablet 200 mg PO TID PRN pain #20 tabs 10/31/24 11/14/24 Rx (Pyridium) acetaminophen 500 mg tablet 1,000 mg (2 x 500 mg) PO TID PRN 11/07/24 11/14/24 Rx carmen 7 days #42 tabs oxycodone 5 mg tablet 5 mg PO Q4H PRN pain #20 tabs 11/07/24 11/14/24 Rx Allergies Allergy/AdvReac Type Severity Reaction Status Date / Time ketorolac (From Toradol) Allergy Headache,Rash, Verified 11/13/24 21:52 Swollen tongue tramadol AdvReac Mild VOMITING/HE Verified 11/13/24 21:52 ADACHE hydralazine AdvReac Headache Verified 11/13/24 21:52 Vital Signs Vital Signs - 24 hr 11/13/24 21:53 11/13/24 23:04 11/14/24 00:37 Temperature 97.6 F Pulse Rate 74 76 90 Respiratory Rate 14 18 16 Blood Pressure 198/123 H 204/126 H 184/116 H Pulse Oximetry 98 95 96 Oxygen Delivery Room Air 11/14/24 02:21 11/14/24 02:22 11/14/24 03:42 Temperature Pulse Rate 80 80 Respiratory Rate 20 Blood Pressure 163/136 H Pulse Oximetry 95 Oxygen Delivery Room Air 11/14/24 04:16 Temperature 97.0 F L Pulse Rate 72 Respiratory Rate 18 Blood Pressure 182/111 H Pulse Oximetry 97 Oxygen Delivery Exam Const: General: comfortable and no acute distress Other: A&O x3 HENMT: Mouth: Yes moist mucous membranes Eyes: Pupils: Equal, round and reactive pupils present Neck: Neck: supple Resp: Effort & Inspection: normal respiratory effort Auscultation: clear to auscultation bilaterally Cardio: Rate: regular rate Rhythm: regular rhythm GI: Inspection: non-distended GI Palp: Yes Soft to palpation : General: Yes bladder normal to palpation Neuro: Motor exam (neuro): 5/5 motor strength present throughout Extrem: General: no edema H&P: Results Labs Labs: Short CBC 11/13/24 Range/Units 22:58 WBC 9.6 (4.5-10.0) K/mm3 Hgb 13.7 (12.0-15.0) g/dL Hct 39.7 (37.0-47.0) % Plt Count 228 (150-375) k/mm3 BMP 11/13/24 22:58 Sodium 139 Potassium 3.7 Chloride 104 Carbon Dioxide 22 BUN 14 Creatinine 0.59 L Glucose 87 Calcium 9.4 Liver Function 11/13/24 Range/Units 22:58 Total Bilirubin 0.3 (0.2-1.3) mg/dL AST 34 (14-36) U/L ALT 49 H (6-35) U/L Alkaline Phosphatase 79 (38-126) U/L Albumin 4.3 (3.5-5.1) g/dL Urine 11/13/24 Range/Units 22:42 Urine Color Yellow (Yellow) Urine Appearance Clear (Clear) Urine pH 5.5 (5.0-9.0) Ur Specific [place] 1.026 (1.001-1.035) Urine Protein Negative (Negative) mg/dL Urine Glucose (UA) Negative (Negative) mg/dL Assessment and Plan Assessment and plan (1) Hypertensive urgency: Code(s): I16.0 - Hypertensive urgency Status: Acute (2) Chronic hypertension: Code(s): I10 - Essential (primary) hypertension Status: Acute (3) Obesity: Code(s): E66.9 - Obesity, unspecified Status: Acute (4) Flank pain: Code(s): R10.9 - Unspecified abdominal pain Status: Acute (5) Left ureteral stone: Code(s): N20.1 - Calculus of ureter Status: Acute Plan This is a 44-year-old female who presents to [place] ER with complaint of left flank pain going on intermittently for 3 weeks. She has history of kidney stones, hypertension, GERD, obesity, tobacco dependence. Patient was scheduled for procedure on November [address] Gonzalez. She again contacted him was told to present to the ER for pain control and surgical evaluation. ER evaluation included CT abdomen pelvis demonstrating a partially obstructing 4 mm calculus within the proximal left ureter which is unchanged from prior. Patient was given Zofran, 1 L normal saline, Dilaudid total 1.5 mg IV. SBP elevated to 180. ----- Dilaudid p.r.n.. NPO. Awaiting official surgical evaluation by Urology. Pain is better controlled however systolic blood pressure still 180. Restarting home meds. Continue interval blood pressure check. ----- Full code. SCDs. Normal saline at 100 cc/hours. Hospitalist MIPS Advance Care Plan I have confirmed that the patient's Advanced Care Plan is present, code status is documented, or surrogate decision maker is listed in patient medical record.: Yes Medication Reconciliation I have utilized all available resources to obtain, update and review the patients current medications (includes all prescriptions, OTC, herbals, cannabis, and nutritional supplements).: Yes
[2024-11-14] MEDS: LOSARTAN POTASSIUM 50 MG TABLET PO ×2 (06:26→17:17)
[2024-11-14] MEDS: SODIUM CHLORIDE 0.9% IV 1,000 ML 100 ML IV CONT (06:27)
--- NOTE | 2024-11-14 06:56 | P.PNIM_ITS ---
Progress Note: A&P Assessment and Plan (1) Hypertensive urgency: Code(s): I16.0 - Hypertensive urgency Status: Acute Assessment and Plan: Chronic poorly controlled blood pressure, per patient not uncommon to be in 200 systolic at home Per chart review patient was last seen by PCP in February 2024 where she was to remain on losartan 50 BID, HCTZ 25 mg, amlodipine 10 mg daily, and had her dose of nebivolol increased to 10 mg BID. - Current home medications resumed: HCTZ 25 mg daily, losartan 50 mg BID, and nebivolol 10 mg daily - Started amlodipine 10 mg daily - Renal US ordered to rule out RENÉ - Continue to monitor (2) Left ureteral stone: Code(s): N20.1 - Calculus of ureter Status: Acute Assessment and Plan: Patient recently admitted on 10/21 for right flank pain and underwent a cystoscopy with right ureteroscopy and stone extraction with Dr. Gonzalez prior to same day discharge. Patient was to have a lithotripsy with Dr. Gonzalez in the outpatient setting for the left stone on Saturday, 11/16. - CT abdomen/pelvis showed redemonstration of a partially obstructed 4 mm calculus within the proximal left ureter - Started on tamsulosin 0.4 mg daily - Analgesics - Urology consulted, appreciate recommendations s/p cystoscopy, left retrograde, left ureteroscopy with stone extraction, left stent placement on 11/[address] Alejandro Time Spent With Patient Time with patient: 25 - 35 minutes Subjective Date/time seen: 11/14/24 06:56 Interval history: 44 year old female with past medical history of hypertension, GERD, depression, obesity, kidney stones and tobacco use presents to the hospital for left flank pain. Patient is pleasant lying comfortably in bed. She continues to endorse left flank pain but states that this is well controlled on the current regimen. Plan for urology procedure today. Patient continues to be hypertensive and notes that she has had poorly controlled hypertension for a long time. She notes that is not uncommon for blood pressure to be in the 200 systolic. Per chart review patient was last seen by PCP in February 2024 where she was to remain on losartan 50 BID, HCTZ 25 mg, amlodipine 10 mg daily, and had her dose of nebivolol increased to 10 mg BID. She states she is unsure why she is no longer taking the amlodipine. She endorses medication compliance. Patient has no other complaints denying chest pain, shortness of breath, palpitations, nauesa/vomiting and abdominal pain. Review of Systems Review of Systems: All systems reviewed & are unremarkable except as noted in HPI and below Exam Narrative: AF HR 59 RR 18 SPO2 92 BP 159/107 General: female in no acute respiratory distress who is nontoxic appearing, lying semi recumbent in bed. HEENT: Normocephalic. Atraumatic. Extraocular movement intact. Sclera clear and anicteric. No facial asymmetry. Chest: Lungs are clear to auscultation bilaterally. No wheezes or crackles. CV: Heart was regular rate and rhythm. S1-S2. No murmurs, gallops, or rubs. Abd: Abdomen was soft. Nontender. Nondistended. Positive bowel sounds. Left flank tenderness. Ext: No clubbing, cyanosis, or edema. DP pulses bilaterally. Neuro: Patient is alert and oriented x3. Speech is clear. Objective Data Vital Signs Vital Signs: Vital Signs - 24 hr 11/13/24 21:53 11/13/24 23:04 11/14/24 00:37 Temperature 97.6 F Pulse Rate 74 76 90 Respiratory Rate 14 18 16 Blood Pressure 198/123 H 204/126 H 184/116 H Pulse Oximetry 98 95 96 Oxygen Delivery Room Air 11/14/24 02:21 11/14/24 02:22 11/14/24 03:42 Temperature Pulse Rate 80 80 Respiratory Rate 20 Blood Pressure 163/136 H Pulse Oximetry 95 Oxygen Delivery Room Air 11/14/24 04:16 11/14/24 06:26 Temperature 97.0 F L Pulse Rate 72 68 Respiratory Rate 18 Blood Pressure 182/111 H Pulse Oximetry 97 Oxygen Delivery Intake/Output Intake/Output: Intake & Output 11/11/24 11/12/24 11/13/24 11/14/24 23:59 23:59 23:59 23:59 Intake Total 1000 Balance 1000 Meds/Results Medications: Active Medications Generic Name Dose Route Start Last Admin Trade Name Freq PRN Reason Stop Dose Admin Hydrochlorothiazide 25 mg 11/14/24 09:00 Hydrochlorothiazide 25 Mg Tablet PO QAM MARINA Hydromorphone HCl 1 mg 11/14/24 01:58 11/14/24 05:43 Hydromorphone Hcl Inj (*Crx) 1 Mg/Ml Syr IV PUSH 1 mg Q4H PRN Administration Pain Rated 7-10 Sodium Chloride 1,000 mls @ 100 mls/hr 11/14/24 05:50 11/14/24 06:27 Normal Saline Iv IV CONT 100 mls/hr .Q10H MARINA Administration Losartan Potassium 50 mg 11/14/24 05:50 11/14/24 06:26 Losartan Potassium 50 Mg Tablet PO 50 mg BID MARINA Administration Multivitamins Therapeutic 1 tablet 11/14/24 09:00 Multivitamins Therapeutic Tab (*Bkc) PO DAILY MARINA Nebivolol 10 mg 11/14/24 05:50 11/14/24 06:26 Nebivolol Hcl 5 Mg Tablet PO 10 mg DAILY MARINA Administration Ondansetron HCl 4 mg 11/14/24 01:58 Ondansetron Inj 4 Mg/2 Ml Vial IV PUSH Q4H PRN Nausea Tamsulosin HCl 0.4 mg 11/14/24 09:00 Tamsulosin Hcl 0.4 Mg Capsule PO DAILY [facility] Radiology Results: ITS Impressions Abdomen/Pelvis CT 11/13/24 23:38 IMPRESSION: Redemonstration of a partially obstructing 4 mm calculus within the proximal left ureter, unchanged from prior. Fatty infiltration of a markedly enlarged liver. Labs Labs: Laboratory Results - last 24 hr 11/13/24 11/13/24 22:42 22:58 WBC 9.6 RBC 4.47 Hgb 13.7 Hct 39.7 MCV 88.8 MCH 30.6 MCHC 34.5 RDW 12.8 Plt Count 228 MPV 10.3 Immature Gran % (Auto) 0.4 Neut % (Auto) 58.9 Lymph % (Auto) 29.2 [place] % (Auto) 9.1 H Eos % (Auto) 2.0 Baso % (Auto) 0.4 Lymph # (Auto) 2.80 [place] # (Auto) 0.9 H Eos # (Auto) 0.2 Baso # (Auto) 0.0 Abs Immat Gran (auto) 0.04 H Absolute Neuts (auto) 5.7 Absolute Nucleated RBC 0.000 Nucleated RBC % 0.0 Sodium 139 Potassium 3.7 Chloride 104 Carbon Dioxide 22 Anion Gap 13 H BUN 14 Creatinine 0.59 L Estim Creat Clear Calc 107 Estimated GFR > 60 Glucose 87 Calcium 9.4 Total Bilirubin 0.3 AST 34 ALT 49 H Alkaline Phosphatase 79 Total Protein 7.0 Albumin 4.3 Urine Color Yellow Urine Appearance Clear Urine pH 5.5 Ur Specific [place] 1.026 Urine Protein Negative Urine Glucose (UA) Negative Urine Ketones Trace H Ur Blood (Man) 1+ H Urine Nitrate Negative Urine Bilirubin Negative Urine Urobilinogen 0.2 Leukocyte Esterase Rfl Negative Urine RBC 6-10 H Urine WBC 0-5 Ur Squamous Epith Cells Few Urine Bacteria None seen Urine Casts 0-2 Quality VTE Prophylaxis VTE prophylaxis: mechanical ordered
[2024-11-14] MEDS: ONDANSETRON INJ 4 MG/2 ML VIAL IV PUSH ×2 (08:09→23:30)
--- NOTE | 2024-11-14 08:45 | PC.NURSE ---
To OR per bed, IV saline locked. Report given to KHADAR Bello.
[2024-11-14] MEDS: FAMOTIDINE 20 MG/2 ML VIAL IV PUSH (09:00)
--- NOTE | 2024-11-14 09:15 | P.PNAN_ITS ---
Anes - Initial Pre Proc Eval Procedure: Operation Date: 11/14/24 09:15 Proposed Procedures p Cysto, RPG, Stone Ext, Stent Placement(Left) - Drew Alejandro MD Date/Time: 11/14/24 09:15 Surgeon: Valeria Dumont PA-C Pre Op Diagnosis: partially obstructing kidney stone, renal colic, Patient Data Age: 44 Gender: F Height: 1.6 m Weight: 89.3 kg Last Vital Signs Temp 36.1 C L 11/14/24 04:16 Pulse 68 11/14/24 06:26 Resp 18 11/14/24 04:16 BP 162/86 H 11/14/24 07:15 Pulse Ox 97 11/14/24 04:16 O2 Del Method Room Air 11/14/24 03:42 Allergies Allergy/AdvReac Type Severity Reaction Status Date / Time ketorolac (From Toradol) Allergy Headache,Rash, Verified 11/13/24 21:52 Swollen tongue tramadol AdvReac Mild VOMITING/HE Verified 11/13/24 21:52 ADACHE hydralazine AdvReac Headache Verified 11/13/24 21:52 Home Medications ?Medication ?Instructions ?Recorded ?Confirmed ?Type multivitamin 1 tablet PO DAILY 04/04/22 11/14/24 History pregabalin 150 mg capsule 150 mg PO Q8H PRN pain 02/21/24 11/14/24 History losartan 50 mg tablet 50 mg PO BID #180 tabs 03/30/24 11/14/24 Rx ondansetron 4 mg disintegrating 4 mg PO Q8H #14 tabs 10/12/24 11/14/24 Rx tablet tamsulosin 0.4 mg capsule 0.4 mg PO DAILY #14 caps 10/18/24 11/14/24 Rx cephalexin 500 mg capsule 500 mg PO Q12H #10 caps 10/21/24 11/14/24 Rx hydrochlorothiazide 25 mg tablet 25 mg PO DAILY 10/21/24 11/14/24 History hydrocodone 5 mg-acetaminophen 325 1 tablet PO Q8H PRN pain #10 tabs 10/21/24 11/14/24 Rx mg tablet nebivolol 10 mg tablet (Bystolic) 10 mg PO DAILY 10/21/24 11/14/24 History acetaminophen 500 mg capsule 1,000 mg (2 x 500 mg) PO Q6H PRN 10/25/24 11/14/24 Rx pain #30 caps hydrocodone 5 mg-acetaminophen 325 1 tablet PO Q8H PRN pain #10 tabs 10/25/24 11/14/24 Rx mg tablet ondansetron 4 mg disintegrating 4 mg PO Q8H PRN nausea and 10/25/24 11/14/24 Rx tablet vomiting #7 tabs phenazopyridine 100 mg tablet 100 mg PO TID PRN pain 2 days #5 10/25/24 11/14/24 Rx tabs ondansetron 4 mg disintegrating 4 mg PO Q6H PRN nausea and 10/31/24 11/14/24 Rx tablet vomiting #14 tabs phenazopyridine 200 mg tablet 200 mg PO TID PRN pain #20 tabs 10/31/24 11/14/24 Rx (Pyridium) acetaminophen 500 mg tablet 1,000 mg (2 x 500 mg) PO TID PRN 11/07/24 11/14/24 Rx carmen 7 days #42 tabs oxycodone 5 mg tablet 5 mg PO Q4H PRN pain #20 tabs 11/07/24 11/14/24 Rx Laboratory Tests 11/13/24 11/13/24 22:42 22:58 WBC 9.6 K/mm3 (4.5-10.0) RBC 4.47 M/mm3 (4.2-5.4) Hgb 13.7 g/dL (12.0-15.0) Hct 39.7 % (37.0-47.0) MCV 88.8 fl (80-100) MCH 30.6 pg (26-34) MCHC 34.5 g/dl (32-36) RDW 12.8 % (11.5-14.5) Plt Count 228 k/mm3 (150-375) MPV 10.3 fl (7.4-10.4) Immature Gran % (Auto) 0.4 % (0-0.5) Neut % (Auto) 58.9 % (45.5-73.1) Lymph % (Auto) 29.2 % (18.3-44.2) [place] % (Auto) 9.1 H % (2.6-8.5) Eos % (Auto) 2.0 % (0-4.4) Baso % (Auto) 0.4 % (0.2-1.2) Lymph # (Auto) 2.80 K/mm3 (0.9-3.2) [place] # (Auto) 0.9 H K/mm3 (0.1-0.6) Eos # (Auto) 0.2 K/mm3 (0-0.3) Baso # (Auto) 0.0 K/mm3 (0.0-0.1) Abs Immat Gran (auto) 0.04 H K/mm3 (0.00-0.031) Absolute Neuts (auto) 5.7 K/mm3 (1.3-6.7) Absolute Nucleated RBC 0.000 K/mm3 (0.0-0.012) Nucleated RBC % 0.0 % (0.0-0.2) Sodium 139 mmol/L (137-145) Potassium 3.7 mmol/L (3.4-5.0) Chloride 104 mmol/L (98-107) Carbon Dioxide 22 mmol/L (22-30) Anion Gap 13 H mmol/L (4-12) BUN 14 mg/dL (7-17) Creatinine 0.59 L mg/dL (0.7-1.0) Estim Creat Clear Calc 107 ml/min Estimated GFR > 60 (59 - ) Glucose 87 mg/dL (65-110) Calcium 9.4 mg/dL (8.4-10.2) Total Bilirubin 0.3 mg/dL (0.2-1.3) AST 34 U/L (14-36) ALT 49 H U/L (6-35) Alkaline Phosphatase 79 U/L (38-126) Total Protein 7.0 g/dL (6.3-8.2) Albumin 4.3 g/dL (3.5-5.1) Urine Color Yellow (Yellow) Urine Appearance Clear (Clear) Urine pH 5.5 (5.0-9.0) Ur Specific [place] 1.026 (1.001-1.035) Urine Protein Negative mg/dL (Negative) Urine Glucose (UA) Negative mg/dL (Negative) Urine Ketones Trace H mg/dL (Negative) Ur Blood (Man) 1+ H (Negative) Urine Nitrate Negative (Negative) Urine Bilirubin Negative (Negative) Urine Urobilinogen 0.2 mg/dL (<2.0) Leukocyte Esterase Rfl Negative ALEKSANDRA/UL (Negative) Urine RBC 6-10 H /hpf (0-2) Urine WBC 0-5 /hpf (0-3) Ur Squamous Epith Cells Few /hpf (Few) Urine Bacteria None seen /hpf Urine Casts 0-2 Patient hx anesthesia problems: none Family hx anesthesia problems: none Results Review: All pre-operative results and documents have been reviewed as part of the pre- operative evaluation. [facility] Past Medical History Medical History Hypertension Gastroesophageal reflux disease Sleep paralysis, recurrent isolated Smoker Obesity Depression Multiple kidney stones Seasonal allergies Surgical History Surgical History H/O ureteroscopy 10/21/24 on the right due to proximal ureteral stone; Dr Gonzalez History of laparoscopic cholecystectomy on 04/25/23 PDC History of tubal ligation History of endometrial ablation (2009) History of hysterectomy (2015) History of open reduction and internal fixation (ORIF) procedure (2012) Left elbow. History of section 2000, 2001, 2009 Status post cystoscopy with ureteral stent placement Family History Family History Mother Diabetes mellitus Depression Alcoholism Father Hypertension Sibling Congenital heart disease Son Asthma Grandparent Diabetes mellitus Cerebrovascular accident Social History Social History Social History: Surrogate medical decision maker: Bang Luke, spouse. Code status: Full code. Smoking packs per day: 0.5 Smoking cigarettes per day: 10.0 Years smoked: 32 Smoking pack-years: 16.00 Smoking status: Current every day smoker Tobacco type: cigarettes Second hand tobacco smoke exposure: Yes Alcohol intake: never Alcohol use details: Social alcohol use in moderation. Substance use: never Substance use type: does not use Do You Feel Safe in your Home?: Yes Lack of Transportation: No Lack of Food: Never True Current Housing: I Have Housing Concerned About Future Housing: No Difficulty Paying Gas/Electric Bills: No Difficulty Paying for Meds: No Currently Unemployed: No Education: Associate Degree Difficulty w/ Childcare or Family Care: No Living arrangements: with family Spiritual care concerns: No Anes - Eval Final PreProcedure Day of Procedure 11/14/24 09:15 Patient weight: obese Heart: regular rate and rhythm Lungs: clear to auscultation Airway: Mallampati scale class II Neurological: alert and oriented Last oral intake: >/= 8 hours ASA classification: III Emergent: no Anesthetic plan: proceed Anesthesia type and monitoring: general LMA and standard monitoring Results Review: All pre-operative results and documents have been reviewed as part of the pre- operative evaluation. Informed Consent: The patient's anesthetic plan and its attendant risks and benefits were discussed with the patient/family/POA. Questions were solicited and answers provided to the satisfaction of the patient/family/POA.
--- NOTE | 2024-11-14 09:17 | WPDURCON ---
Assessment and Plan Assessment and plan (1) Left ureteral stone: Code(s): N20.1 - Calculus of ureter Status: Acute Assessment and Plan: Proceed with cystoscopy, left retrograde, left ureteroscopy with stone extraction, possible laser stent placement. Urology Consult Note HPI Date Seen: 11/14/24 Time Seen: 09:18 Requesting Physician: Valeria Dumont PA-C Primary Care Provider: Lucas Carter, DO Consult Narrative Reason for consult: Left proximal ureteral calculus Narrative: Renee Luke is a 44 year old female who has had recurrent stones. She presented to the emergency room with left flank pain and a CT scan revealing a 4 mm proximal left ureteral calculus. She was having quite a bit of pain was admitted and now is here for definitive treatment. Review of Systems Review of Systems: All systems reviewed & are unremarkable except as noted in HPI and below PMFSH Past Medical History Medical History (Updated 11/14/24 @ 09:19 by Drew Alejandro MD) Left ureteral stone Hypertension Gastroesophageal reflux disease Sleep paralysis, recurrent isolated Smoker Obesity Depression Multiple kidney stones Seasonal allergies Surgical History Surgical History H/O ureteroscopy 10/21/24 on the right due to proximal ureteral stone; Dr Gonzalez History of laparoscopic cholecystectomy on 04/25/23 PDC History of tubal ligation History of endometrial ablation (2009) History of hysterectomy (2015) History of open reduction and internal fixation (ORIF) procedure (2012) Left elbow. History of section 2000, 2001, 2009 Status post cystoscopy with ureteral stent placement Family History Family History Mother Diabetes mellitus Depression Alcoholism Father Hypertension Sibling Congenital heart disease Son Asthma Grandparent Diabetes mellitus Cerebrovascular accident Social History Social History Social History: Surrogate medical decision maker: Bang Luke, spouse. Code status: Full code. Smoking packs per day: 0.5 Smoking cigarettes per day: 10.0 Years smoked: 32 Smoking pack-years: 16.00 Smoking status: Current every day smoker Tobacco type: cigarettes Second hand tobacco smoke exposure: Yes Alcohol intake: never Alcohol use details: Social alcohol use in moderation. Substance use: never Substance use type: does not use Do You Feel Safe in your Home?: Yes Lack of Transportation: No Lack of Food: Never True Current Housing: I Have Housing Concerned About Future Housing: No Difficulty Paying Gas/Electric Bills: No Difficulty Paying for Meds: No Currently Unemployed: No Education: Associate Degree Difficulty w/ Childcare or Family Care: No Living arrangements: with family Spiritual care concerns: No Meds Home Medications and Allergies Home Medications ?Medication ?Instructions ?Recorded ?Confirmed ?Type multivitamin 1 tablet PO DAILY 04/04/22 11/14/24 History pregabalin 150 mg capsule 150 mg PO Q8H PRN pain 02/21/24 11/14/24 History losartan 50 mg tablet 50 mg PO BID #180 tabs 03/30/24 11/14/24 Rx ondansetron 4 mg disintegrating 4 mg PO Q8H #14 tabs 10/12/24 11/14/24 Rx tablet tamsulosin 0.4 mg capsule 0.4 mg PO DAILY #14 caps 10/18/24 11/14/24 Rx cephalexin 500 mg capsule 500 mg PO Q12H #10 caps 10/21/24 11/14/24 Rx hydrochlorothiazide 25 mg tablet 25 mg PO DAILY 10/21/24 11/14/24 History hydrocodone 5 mg-acetaminophen 325 1 tablet PO Q8H PRN pain #10 tabs 10/21/24 11/14/24 Rx mg tablet nebivolol 10 mg tablet (Bystolic) 10 mg PO DAILY 10/21/24 11/14/24 History acetaminophen 500 mg capsule 1,000 mg (2 x 500 mg) PO Q6H PRN 10/25/24 11/14/24 Rx pain #30 caps hydrocodone 5 mg-acetaminophen 325 1 tablet PO Q8H PRN pain #10 tabs 10/25/24 11/14/24 Rx mg tablet ondansetron 4 mg disintegrating 4 mg PO Q8H PRN nausea and 10/25/24 11/14/24 Rx tablet vomiting #7 tabs phenazopyridine 100 mg tablet 100 mg PO TID PRN pain 2 days #5 10/25/24 11/14/24 Rx tabs ondansetron 4 mg disintegrating 4 mg PO Q6H PRN nausea and 10/31/24 11/14/24 Rx tablet vomiting #14 tabs phenazopyridine 200 mg tablet 200 mg PO TID PRN pain #20 tabs 10/31/24 11/14/24 Rx (Pyridium) acetaminophen 500 mg tablet 1,000 mg (2 x 500 mg) PO TID PRN 11/07/24 11/14/24 Rx carmen 7 days #42 tabs oxycodone 5 mg tablet 5 mg PO Q4H PRN pain #20 tabs 11/07/24 11/14/24 Rx Allergies Allergy/AdvReac Type Severity Reaction Status Date / Time ketorolac (From Toradol) Allergy Headache,Rash, Verified 11/13/24 21:52 Swollen tongue tramadol AdvReac Mild VOMITING/HE Verified 11/13/24 21:52 ADACHE hydralazine AdvReac Headache Verified 11/13/24 21:52 Vital Signs Vital Signs - 24 hr 11/13/24 21:53 11/13/24 23:04 11/14/24 00:37 Temperature 36.4 C Pulse Rate 74 76 90 Respiratory Rate 14 18 16 Blood Pressure 198/123 H 204/126 H 184/116 H Pulse Oximetry 98 95 96 Oxygen Delivery Room Air 11/14/24 02:21 11/14/24 02:22 11/14/24 03:42 Temperature Pulse Rate 80 80 Respiratory Rate 20 Blood Pressure 163/136 H Pulse Oximetry 95 Oxygen Delivery Room Air 11/14/24 04:16 11/14/24 06:26 11/14/24 07:15 Temperature 36.1 C L Pulse Rate 72 68 Respiratory Rate 18 Blood Pressure 182/111 H 162/86 H Pulse Oximetry 97 Oxygen Delivery Exam Const: General: cooperative Resp: Effort & Inspection: normal respiratory effort Cardio: Rate: regular rate Rhythm: regular rhythm Results Labs 11/13/24 22:58 11/13/24 22:58 Labs: Short CBC 11/13/24 Range/Units 22:58 WBC 9.6 (4.5-10.0) K/mm3 Hgb 13.7 (12.0-15.0) g/dL Hct 39.7 (37.0-47.0) % Plt Count 228 (150-375) k/mm3 BMP 11/13/24 22:58 Sodium 139 Potassium 3.7 Chloride 104 Carbon Dioxide 22 BUN 14 Creatinine 0.59 L Glucose 87 Calcium 9.4 Liver Function 11/13/24 Range/Units 22:58 Total Bilirubin 0.3 (0.2-1.3) mg/dL AST 34 (14-36) U/L ALT 49 H (6-35) U/L Alkaline Phosphatase 79 (38-126) U/L Albumin 4.3 (3.5-5.1) g/dL Urine 11/13/24 Range/Units 22:42 Urine Color Yellow (Yellow) Urine Appearance Clear (Clear) Urine pH 5.5 (5.0-9.0) Ur Specific [place] 1.026 (1.001-1.035) Urine Protein Negative (Negative) mg/dL Urine Glucose (UA) Negative (Negative) mg/dL
--- NOTE | 2024-11-14 09:20 | WPDHPUPDATE1 ---
History and Physical Update Update Date/Time: 11/14/24 09:20 History and Physical has been reviewed, including an updated exam of the patient. There are NO changes in the patient's condition. Risks, benefits, and alternatives have been discussed and questions answered. Patient agrees to proceed with procedure.
[2024-11-14] MEDS: LIDOCAINE 2% GEL UROJET 10 ML PKG MUCOUS MEM (09:22)
[2024-11-14] MEDS: ceFAZolin SODIUM 1 GM VIAL 2 GM IV PUSH (09:27)
--- NOTE | 2024-11-14 09:54 | P.OP_ITS ---
Procedure Note - Detailed Date of Procedure 11/14/24 Pre-op Diagnosis Left ureteral calculus Post-op Diagnosis Same Procedure Performed Cystoscopy, left retrograde, left ureteroscopy with stone extraction, left stent placement Surgeon Drew Alejandro MD Anesthesia General Description of Procedure Patient was taken to the operative suite correctly identified. Once anesthesia was obtained she was placed in dorsal lithotomy position and prepped draped usual sterile fashion. Twenty-two Upper Sorbian scope was inserted the bladder. There were no tumors noted both ureteral orifices were visualized normal anatomic position. Left ureteral orifice was cannulated with a wire. I dilated with an 8/10 dilator. Mini flexible scope was inserted. A very small stone was seen in the proximal ureter. Placement of the escape basket essentially fragmented this stone. This very small piece was then retrieved sent for analysis. Reinspection revealed no residual stones in the ureter. Pyelogram was then performed. 4.8 Upper Sorbian contour stent was then placed with the proximal end coiled in the renal pelvis and the distal in the bladder. The string was left attached. Bladder was drained. 2% viscous lidocaine was inserted into the urethra patient is taken recovery stable condition. From my standpoint she will be discharged home later today and have the stent removed by herself on Saturday if she wishes to remove it. This completes dictation. Please send a copy of op note to my office Estimated Blood Loss 0 Urine Output 300 Drains Yes Packing No Pathology Yes Complications No immediate complications Condition Stable Disposition PACU
[2024-11-14] MEDS: LACTATED RINGERS 1,000 ML 30 ML IV CONT (09:57)
[2024-11-14] MEDS: fentaNYL CITRATE INJ (*CRX) 100 MCG/2 ML VIAL 25 MCG IV PUSH ×4 (10:18→10:29)
[2024-11-14] MEDS: hydroCHLOROthiazide 25 MG TABLET PO (10:57)
[2024-11-14] MEDS: TAMSULOSIN HCL 0.4 MG CAPSULE PO (10:57)
[2024-11-14] MEDS: MULTIVITAMINS THERAPEUTIC TAB (*BKC) 1 TABLET PO (10:57)
[2024-11-14] MEDS: HYDROcodone/acetaminophen (*CRX) 5-325 MG TABLET 1 TAB PO ×3 (13:31→22:47)
[2024-11-14] MEDS: amLODIPine BESYLATE 10 MG TABLET PO (13:31)
[2024-11-14] MEDS: HYDROmorphone HCL INJ (*CRX) 1 MG/ML SYR 0.5 MG IV PUSH ×2 (15:12→19:17)
[2024-11-15] MEDS: HYDROmorphone HCL INJ (*CRX) 1 MG/ML SYR 0.5 MG IV PUSH ×4 (01:01→18:16)
[2024-11-15] MEDS: HYDROcodone/acetaminophen (*CRX) 5-325 MG TABLET 1 TAB PO ×3 (04:50→16:12)
[2024-11-15 05:45] LABS: Hematocrit 39.8 % (37.0-47.0); Hemoglobin 13.8 g/dL (12.0-15.0); Mean Corpuscular HGB Conc 34.7 g/dl (32-36); Mean Corpuscular Hemoglobin 30.9 pg (26-34); Mean Platelet Volume 9.6 fl (7.4-10.4); Platelet Count Result 210 k/mm3 (150-375); Red Blood Count 4.47 M/mm3 (4.2-5.4); White Blood Count 13.2 K/mm3 (4.5-10.0)
[2024-11-15 06:00] VITALS: BP 156/94; PULSE 58; RESP 18; TEMP 36.1; O2SAT 96
[2024-11-15 06:00] LABS: Alanine Aminotransferase 57 U/L (6-35); Albumin Level 4.1 g/dL (3.5-5.1); Alkaline Phosphatase 86 U/L (38-126); Anion Gap 10 mmol/L (4-12); Aspartate Amino Transferase 42 U/L (14-36); Bilirubin,Total 0.5 mg/dL (0.2-1.3); Blood Urea Nitrogen 12 mg/dL (7-17); Calcium 8.7 mg/dL (8.4-10.2); Carbon Dioxide 23 mmol/L (22-30); Chloride 103 mmol/L (98-107); Estimated CRCL calculation 101 ml/min; Estimated Glomerular Filt Rate > 60; Glucose 116 mg/dL (65-110); Potassium 3.5 mmol/L (3.4-5.0); Sodium 136 mmol/L (137-145)
[2024-11-15 06:40] LABS: Cortisol Random 0.83 ug/dL
[2024-11-15] MEDS: MULTIVITAMINS THERAPEUTIC TAB (*BKC) 1 TABLET PO (07:46)
[2024-11-15 07:49] VITALS: PULSE 66
[2024-11-15] MEDS: LOSARTAN POTASSIUM 50 MG TABLET PO ×2 (07:49→16:12)
[2024-11-15] MEDS: hydroCHLOROthiazide 25 MG TABLET PO (07:49)
[2024-11-15] MEDS: amLODIPine BESYLATE 10 MG TABLET PO (07:49)
[2024-11-15] MEDS: NEBIVOLOL HCL 5 MG TABLET 10 MG PO (07:49)
[2024-11-15] MEDS: TAMSULOSIN HCL 0.4 MG CAPSULE PO (07:49)
--- NOTE | 2024-11-15 08:34 | P.PNIM_ITS ---
Progress Note: A&P Assessment and Plan (1) Hypertensive urgency: Code(s): I16.0 - Hypertensive urgency Status: Acute Assessment and Plan: Chronic poorly controlled blood pressure, per patient not uncommon to be in 200 systolic at home Per chart review patient was last seen by PCP in February 2024 where she was to remain on losartan 50 BID, HCTZ 25 mg, amlodipine 10 mg daily, and had her dose of nebivolol increased to 10 mg BID. - Current home medications resumed: HCTZ 25 mg daily, losartan 50 mg BID, and nebivolol 10 mg daily - Started amlodipine 10 mg daily, unable to increase nebivolol frequency given H R - Renal US ordered to rule out RENÉ: Unremarkable - Continue to monitor (2) Left ureteral stone: Code(s): N20.1 - Calculus of ureter Status: Acute Assessment and Plan: Patient recently admitted on 10/21 for right flank pain and underwent a cystosc opy with right ureteroscopy and stone extraction with Dr. Gonzalez prior to same day discharge. Patient was to have a lithotripsy with Dr. Gonzalez in the outpatient setting for the left stone on Saturday, 11/16. - CT abdomen/pelvis showed redemonstration of a partially obstructed 4 mm calculus within the proximal left ureter - Started on tamsulosin 0.4 mg daily - Analgesics - Urology consulted, appreciate recommendations s/p cystoscopy, left retrograde, left ureteroscopy with stone extraction, left stent placement on 11/[address] Alejandro Patient continues to require IV pain medication, endorsing sharp stabbing pain. Hx of poorly controlled chronic pain for which she was sent to pain management for. Per PCP note in 02/2025, there is concern for opioid dependence though patient denies. Patient has been discharged on pain medications several times over the past few months for ongoing kidney issues. Time Spent With Patient Time with patient: 25 - 35 minutes Subjective Date/time seen: 11/15/24 08:34 Interval history: 44 year old female with past medical history of hypertension, GERD, depression, obesity, kidney stones and tobacco use presents to the hospital for left flank pain. Patient is pleasant lying in bed. She continues to endorse severe left flank pain that she describes as a stabbing. She is still requiring IV pain management. Discussed with patient that we need to start weaning off the IV in order to prepare for discharge. She states understanding. Patient continues to have good urine output and denies pain with urinary or hematuria. She endorses nausea with the pain but denies vomiting or abdominal pain. She has a history of poorly controlled chronic pain for which she was sent to pain management for. Per PCP note in 02/2025, noted that there is concern for opioid dependence. She has no other complaints denying chest pain, palpitations, and shortness of breath. She states that her headache has completely resolved with blood pressure improvement. Review of Systems Review of Systems: All systems reviewed & are unremarkable except as noted in HPI and below Exam Narrative: AF HR 58 RR 18 Spo2 96 BP 156/94 General: female in no acute respiratory distress who is nontoxic appearing, lying semi recumbent in bed. HEENT: Normocephalic. Atraumatic. Extraocular movement intact. Sclera clear and anicteric. No facial asymmetry. Chest: Lungs are clear to auscultation bilaterally. CV: Heart was regular rate and rhythm. Abd: Abdomen was soft. Nontender. Nondistended. Positive bowel sounds. Left flank tenderness. Neuro: Patient is alert and oriented x3. Speech is clear. Objective Data Vital Signs Vital Signs: Vital Signs - 24 hr 11/14/24 09:57 11/14/24 10:10 11/14/24 10:20 Temperature 97 F L Pulse Rate 60 64 Respiratory Rate 17 18 Blood Pressure 129/87 141/99 H Pulse Oximetry 98 99 Oxygen Delivery Simple Face Mask Simple Face Mask Room Air Oxygen Flow Rate 8 8 Fraction of Inspired Oxygen 11/14/24 10:25 11/14/24 10:35 11/14/24 10:57 Temperature 98.4 F Pulse Rate 65 62 62 Respiratory Rate 14 14 18 Blood Pressure 163/103 H 154/100 H 178/99 H Pulse Oximetry 97 95 93 Oxygen Delivery Room Air Room Air Oxygen Flow Rate Fraction of Inspired Oxygen 11/14/24 11:12 11/14/24 12:43 11/14/24 13:39 Temperature 98.0 F 97.5 F L Pulse Rate 63 59 L 59 L Respiratory Rate 20 18 16 Blood Pressure 158/95 H 159/107 H 178/100 H Pulse Oximetry 94 92 96 Oxygen Delivery Oxygen Flow Rate Fraction of Inspired Oxygen 11/14/24 14:27 11/14/24 15:43 04/05/25 17:24 Temperature 98.3 F 98.5 F 98.6 F Pulse Rate 69 57 L 64 Respiratory Rate 20 18 20 Blood Pressure 164/89 H 153/94 H 155/100 H Pulse Oximetry 98 93 92 Oxygen Delivery Oxygen Flow Rate Fraction of Inspired Oxygen 11/14/24 20:00 11/14/24 21:30 11/14/24 21:50 Temperature 97.0 F L Pulse Rate 68 Respiratory Rate 16 Blood Pressure 147/89 H Pulse Oximetry 92 95 Oxygen Delivery Room Air Room Air Oxygen Flow Rate Fraction of Inspired Oxygen 21 11/15/24 07:49 Temperature Pulse Rate 66 Respiratory Rate Blood Pressure Pulse Oximetry Oxygen Delivery Oxygen Flow Rate Fraction of Inspired Oxygen Intake/Output Intake/Output: Intake & Output 11/12/24 11/13/24 11/14/24 11/15/24 23:59 23:59 23:59 23:59 Intake Total 2370 Output Total 2800 Balance -430 Meds/Results Medications: Active Medications Generic Name Dose Route Start Last Admin Trade Name Freq PRN Reason Stop Dose Admin Acetaminophen 650 mg 11/14/24 13:00 Acetaminophen 325 Mg Tablet PO Q6H PRN Mild Pain (1-3) or Fever Hydrocodone Bitart/Acetaminophen 1 tab 11/14/24 13:00 11/15/24 04:50 Hydrocodone/Acetaminophen (*Crx) 5-325 Mg Tablet PO 1 tab Q4H PRN Administration Pain Rated 4-6 Amlodipine Besylate 10 mg 11/14/24 13:00 11/15/24 07:49 Amlodipine Besylate 10 Mg Tablet PO 10 mg DAILY MARINA Administration Hydrochlorothiazide 25 mg 11/14/24 09:00 11/15/24 07:49 Hydrochlorothiazide 25 Mg Tablet PO 25 mg QAM MARINA Administration Hydromorphone HCl 0.5 mg 11/14/24 13:01 11/15/24 07:45 Hydromorphone Hcl Inj (*Crx) 1 Mg/Ml Syr IV PUSH 0.5 mg Q4H PRN Administration Pain Rated 7-10 Losartan Potassium 50 mg 11/14/24 05:50 11/15/24 07:49 Losartan Potassium 50 Mg Tablet PO 50 mg BID MARINA Administration Multivitamins Therapeutic 1 tablet 11/14/24 09:00 11/15/24 07:46 Multivitamins Therapeutic Tab (*Bkc) PO 1 tablet DAILY MARINA Administration Nebivolol 10 mg 11/14/24 05:50 11/15/24 07:49 Nebivolol Hcl 5 Mg Tablet PO 10 mg DAILY MARINA Administration Ondansetron HCl 4 mg 11/14/24 01:58 11/14/24 23:30 Ondansetron Inj 4 Mg/2 Ml Vial IV PUSH 4 mg Q4H PRN Administration Nausea Tamsulosin HCl 0.4 mg 11/14/24 09:00 11/15/24 07:49 Tamsulosin Hcl 0.4 Mg Capsule PO 0.4 mg DAILY MARINA Administration Radiology Results: ITS Impressions Abdomen/Pelvis CT 11/13/24 23:38 IMPRESSION: Redemonstration of a partially obstructing 4 mm calculus within the proximal left ureter, unchanged from prior. Fatty infiltration of a markedly enlarged liver. Abdomen X-Ray 11/14/24 07:11 IMPRESSION: 1. Excreted contrast in the bilateral renal collecting systems from recent contrast-enhanced CT without hydronephrosis. 2. Previous noted proximal left ureteral stone not visualized but is in the region of contrast opacification and may be obscured. Retrograde Pyelogram 11/14/24 09:56 IMPRESSION: 1. Fluoroscopy utilized during left retrograde pyelogram likely proximal left ureteral stone extraction. See procedure note for further detail. Labs Labs: Laboratory Results - last 24 hr 11/15/24 05:22 WBC 13.2 H RBC 4.47 Hgb 13.8 Hct 39.8 MCV 89.0 MCH 30.9 MCHC 34.7 RDW 13.0 Plt Count 210 MPV 9.6 Sodium 136 L Potassium 3.5 Chloride 103 Carbon Dioxide 23 Anion Gap 10 BUN 12 Creatinine 0.64 L Estim Creat Clear Calc 101 Estimated GFR > 60 Glucose 116 H Calcium 8.7 Total Bilirubin 0.5 AST 42 H ALT 57 H Alkaline Phosphatase 86 Total Protein 7.0 Albumin 4.1 Random Cortisol 0.83 Quality VTE Prophylaxis VTE prophylaxis: mechanical ordered
[2024-11-15 22:06] VITALS: BP 157/90; PULSE 59; RESP 16; TEMP 36.3; O2SAT 95
[2024-11-16] MEDS: HYDROmorphone HCL INJ (*CRX) 1 MG/ML SYR 0.5 MG IV PUSH ×2 (00:17→06:09)
--- NOTE | 2024-11-16 02:03 | PC.NURSE ---
Pt pulled her stent at midnight
[2024-11-16 05:43] LABS: Hematocrit 42.7 % (37.0-47.0); Hemoglobin 14.1 g/dL (12.0-15.0); Mean Corpuscular Hemoglobin 30.3 pg (26-34); Mean Corpuscular Volume 91.6 fl (80-100); Mean Platelet Volume 9.4 fl (7.4-10.4); Platelet Count Result 200 k/mm3 (150-375); Red Blood Count 4.66 M/mm3 (4.2-5.4); Red Cell Distribution Width 13.4 % (11.5-14.5); White Blood Count 10.4 K/mm3 (4.5-10.0)
[2024-11-16 05:59] LABS: Alanine Aminotransferase 53 U/L (6-35); Albumin Level 3.9 g/dL (3.5-5.1); Alkaline Phosphatase 76 U/L (38-126); Anion Gap 8 mmol/L (4-12); Aspartate Amino Transferase 37 U/L (14-36); Bilirubin,Total 0.4 mg/dL (0.2-1.3); Blood Urea Nitrogen 14 mg/dL (7-17); Calcium 8.7 mg/dL (8.4-10.2); Carbon Dioxide 25 mmol/L (22-30); Chloride 103 mmol/L (98-107); Estimated CRCL calculation 105 ml/min; Estimated Glomerular Filt Rate > 60; Glucose 83 mg/dL (65-110); Potassium 3.7 mmol/L (3.4-5.0); Sodium 136 mmol/L (137-145)
[2024-11-16 06:00] VITALS: BP 155/95; PULSE 62; RESP 16; TEMP 36.1; O2SAT 93
[2024-11-16] MEDS: HYDROcodone/acetaminophen (*CRX) 5-325 MG TABLET 1 TAB PO ×2 (08:04→13:21)
[2024-11-16 08:05] VITALS: PULSE 68
[2024-11-16] MEDS: NEBIVOLOL HCL 5 MG TABLET 10 MG PO (08:05)
[2024-11-16] MEDS: amLODIPine BESYLATE 10 MG TABLET PO (08:05)
[2024-11-16] MEDS: hydroCHLOROthiazide 25 MG TABLET PO (08:05)
[2024-11-16] MEDS: LOSARTAN POTASSIUM 50 MG TABLET PO (08:05)
[2024-11-16] MEDS: MULTIVITAMINS THERAPEUTIC TAB (*BKC) 1 TABLET PO (08:05)
[2024-11-16] MEDS: TAMSULOSIN HCL 0.4 MG CAPSULE PO (08:05)
--- NOTE | 2024-11-16 09:20 | P.PNIM_ITS ---
Progress Note: A&P Assessment and Plan (1) Hypertensive urgency: Code(s): I16.0 - Hypertensive urgency Status: Acute Assessment and Plan: Chronic poorly controlled blood pressure, per patient not uncommon to be in 200 systolic at home Per chart review patient was last seen by PCP in February 2024 where she was to remain on losartan 50 BID, HCTZ 25 mg, amlodipine 10 mg daily, and had her dose of nebivolol increased to 10 mg BID. - Current home medications resumed: HCTZ 25 mg daily, losartan 50 mg BID, and nebivolol 10 mg daily - Started amlodipine 10 mg daily, unable to increase nebivolol frequency given H R - Renal US ordered to rule out RENÉ: Unremarkable - Continue to monitor (2) Left ureteral stone: Code(s): N20.1 - Calculus of ureter Status: Acute Assessment and Plan: Patient recently admitted on 10/21 for right flank pain and underwent a cystosc opy with right ureteroscopy and stone extraction with Dr. Gonzalez prior to same day discharge. Patient was to have a lithotripsy with Dr. Gonzalez in the outpatient setting for the left stone on Saturday, 11/16. - CT abdomen/pelvis showed redemonstration of a partially obstructed 4 mm calculus within the proximal left ureter - Started on tamsulosin 0.4 mg daily - Analgesics - Urology consulted, appreciate recommendations s/p cystoscopy, left retrograde, left ureteroscopy with stone extraction, left stent placement on 11/[address] Alejandro Patient continues to require IV pain medication, endorsing sharp stabbing pain. Hx of poorly controlled chronic pain for which she was sent to pain management for. Per PCP note in 02/2025, there is concern for opioid dependence though patient denies. Patient has been discharged on pain medications several times over the past few months for ongoing kidney issues. Subjective Date/time seen: 11/16/24 09:20 Interval history: 44 year old female with past medical history of hypertension, GERD, depression, obesity, kidney stones and tobacco use presents to the hospital for left flank pain. Review of Systems Review of Systems: All systems reviewed & are unremarkable except as noted in HPI and below Exam Narrative: AF HR General: female in no acute respiratory distress who is nontoxic appearing, lying semi recumbent in bed. HEENT: Normocephalic. Atraumatic. Extraocular movement intact. Sclera clear and anicteric. No facial asymmetry. Chest: Lungs are clear to auscultation bilaterally. CV: Heart was regular rate and rhythm. Abd: Abdomen was soft. Nontender. Nondistended. Positive bowel sounds. Left flank tenderness. Neuro: Patient is alert and oriented x3. Speech is clear. Objective Data Vital Signs Vital Signs: Vital Signs - 24 hr 11/15/24 20:00 11/15/24 22:06 11/16/24 06:00 Temperature 97.4 F L 97.0 F L Pulse Rate 59 L 62 Respiratory Rate 16 16 Blood Pressure 157/90 H 155/95 H Pulse Oximetry 95 93 Oxygen Delivery Room Air 11/16/24 08:00 11/16/24 08:05 Temperature Pulse Rate 68 Respiratory Rate Blood Pressure Pulse Oximetry Oxygen Delivery Room Air Intake/Output Intake/Output: Intake & Output 11/13/24 11/14/24 11/15/24 11/16/24 23:59 23:59 23:59 23:59 Intake Total 2370 1240 720 Output Total 3400 1200 1550 Balance -1030 40 -830 Meds/Results Medications: Active Medications Generic Name Dose Route Start Last Admin Trade Name Freq PRN Reason Stop Dose Admin Acetaminophen 650 mg 11/14/24 13:00 Acetaminophen 325 Mg Tablet PO Q6H PRN Mild Pain (1-3) or Fever Hydrocodone Bitart/Acetaminophen 1 tab 11/14/24 13:00 11/16/24 08:04 Hydrocodone/Acetaminophen (*Crx) 5-325 Mg Tablet PO 1 tab Q4H PRN Administration Pain Rated 4-6 Amlodipine Besylate 10 mg 11/14/24 13:00 11/16/24 08:05 Amlodipine Besylate 10 Mg Tablet PO 10 mg DAILY MARINA Administration Hydrochlorothiazide 25 mg 11/14/24 09:00 11/16/24 08:05 Hydrochlorothiazide 25 Mg Tablet PO 25 mg QAM MARINA Administration Hydromorphone HCl 0.5 mg 11/15/24 14:59 11/16/24 06:09 Hydromorphone Hcl Inj (*Crx) 1 Mg/Ml Syr IV PUSH 0.5 mg Q6H PRN Administration Pain Rated 7-10 Losartan Potassium 50 mg 11/14/24 05:50 11/16/24 08:05 Losartan Potassium 50 Mg Tablet PO 50 mg BID MARINA Administration Multivitamins Therapeutic 1 tablet 11/14/24 09:00 11/16/24 08:05 Multivitamins Therapeutic Tab (*Bkc) PO 1 tablet DAILY MARINA Administration Nebivolol 10 mg 11/14/24 05:50 11/16/24 08:05 Nebivolol Hcl 5 Mg Tablet PO 10 mg DAILY MARINA Administration Ondansetron HCl 4 mg 11/14/24 01:58 11/14/24 23:30 Ondansetron Inj 4 Mg/2 Ml Vial IV PUSH 4 mg Q4H PRN Administration Nausea Tamsulosin HCl 0.4 mg 11/14/24 09:00 11/16/24 08:05 Tamsulosin Hcl 0.4 Mg Capsule PO 0.4 mg DAILY MARINA Administration Radiology Results: ITS Impressions Abdomen/Pelvis CT 11/13/24 23:38 IMPRESSION: Redemonstration of a partially obstructing 4 mm calculus within the proximal left ureter, unchanged from prior. Fatty infiltration of a markedly enlarged liver. Abdomen X-Ray 11/14/24 07:11 IMPRESSION: 1. Excreted contrast in the bilateral renal collecting systems from recent contrast-enhanced CT without hydronephrosis. 2. Previous noted proximal left ureteral stone not visualized but is in the region of contrast opacification and may be obscured. Retrograde Pyelogram 11/14/24 09:56 IMPRESSION: 1. Fluoroscopy utilized during left retrograde pyelogram likely proximal left ureteral stone extraction. See procedure note for further detail. Arterial/Peripheral Duplex 11/15/24 14:08 IMPRESSION: Unremarkable Doppler evaluation of the bilateral renal arteries, as detailed above. Labs Labs: Laboratory Results - last 24 hr 11/16/24 05:29 WBC 10.4 H RBC 4.66 Hgb 14.1 Hct 42.7 MCV 91.6 MCH 30.3 MCHC 33.0 RDW 13.4 Plt Count 200 MPV 9.4 Sodium 136 L Potassium 3.7 Chloride 103 Carbon Dioxide 25 Anion Gap 8 BUN 14 Creatinine 0.61 L Estim Creat Clear Calc 105 Estimated GFR > 60 Glucose 83 Calcium 8.7 Total Bilirubin 0.4 AST 37 H ALT 53 H Alkaline Phosphatase 76 Total Protein 7.0 Albumin 3.9 Quality VTE Prophylaxis VTE prophylaxis: mechanical ordered
--- NOTE | 2024-11-16 16:15 | P.DS_ITS ---
DS: Admitting Diagnosis Discharge Date 11/16/24 Admitting Diagnosis hypertensive urgency left ureteral stone DS: Discharge Diagnosis Discharge Diagnosis (1) Hypertensive urgency: Code(s): I16.0 - Hypertensive urgency Status: Acute (2) Left ureteral stone: Code(s): N20.1 - Calculus of ureter Status: Acute DS: Summary Hospital Course Reason for hospitalization: hypertensive urgency left ureteral stone Hospital Course: 44 year old female with past medical history of hypertension, GERD, depression, obesity, kidney stones and tobacco use presents to the hospital for left flank pain. Patient recently admitted on 10/21 for right flank pain and underwent a cystoscopy with right ureteroscopy and stone extraction with Dr. Gonzalez prior to same day discharge. Patient was to have a lithotripsy with Dr. Gonzalez in the outpatient setting for the left stone on Saturday, 11/16. CT abdomen/pelvis showed redemonstration of a partially obstructed 4 mm calculus within the proximal left ureter. Started on flomax and pain regimen. Urology consulted and patient underwent a cystoscopy, left retrograde, left ureteroscopy with stone extraction, left stent placement on 11/[address] Alejandro. Following the procedure patient continued to require IV pain medication. She remained inpatient for ongoing pain management. Patient pulled her stent out on 11/16 as per urology recommendations. At time of discharge patient stated she felt she was ready to go home and that discomfort was tolerable on the oral medication. On admission patient noted to be severely hypertensive. Chronic poorly controlled blood pressure, per patient not uncommon to be in 200 systolic at home. Per chart review patient was last seen by PCP in February 2024 where she was to remain on losartan 50 BID, HCTZ 25 mg, amlodipine 10 mg daily, and had her dose of nebivolol increased to 10 mg BID. Patient states she has been compliant with medications but is not taking the amlodipine or nebivolol in the afternoon. She states she is unsure why she stopped taking these medications. Renal US obtained to evaluate for renal artery stenosis contributing to poorly controlled pressures. US was unremarkable. Restarted patient on amlodipine but was unable to make nebivolol BID as heart rate was to low. Blood pressures improved. Discussed with patient the importance of compliance and that she is to monitor her blood pressures at home and record them for PCP review. She states understanding. At time of discharge patient states she feels ready to go home. She denies any chest pain, shortness of breath, palpitations, nausea/vomiting and abdominal pain. Patient discharged home in a stable condition. She is to follow up with her PCP in 1 week and urology as scheduled. Status at Discharge Functional status at discharge: independent ambulation Time Spent with Patient Time attestation: Total time spent providing and/or coordinating discharge services: Time spent: Greater than 30 minutes Exam Narrative: AF HR 62 RR 16 SPO2 93 BP 155/95 General: female in no acute respiratory distress who is nontoxic appearing, lying semi recumbent in bed. HEENT: Normocephalic. Atraumatic. Extraocular movement intact. Sclera clear and anicteric. No facial asymmetry. Chest: Lungs are clear to auscultation bilaterally. CV: Heart was regular rate and rhythm. Abd: Abdomen was soft. Nontender. Nondistended. Positive bowel sounds. Left flank tenderness. Neuro: Patient is alert and oriented x3. Speech is clear. DS: Data Data Completed and Pending Completed studies during hospitalization: arterial/peripheral duplex retrograde pyelogram abdomen xr abdomen/pelvis ct Pending studies at discharge: Pending at discharge 11/14/24 09:38 Surgical [PTH] Routine Labs on day of discharge: Labs from last 24 hours 11/16/24 05:29 WBC 10.4 H RBC 4.66 Hgb 14.1 Hct 42.7 MCV 91.6 MCH 30.3 MCHC 33.0 RDW 13.4 Plt Count 200 MPV 9.4 Sodium 136 L Potassium 3.7 Chloride 103 Carbon Dioxide 25 Anion Gap 8 BUN 14 Creatinine 0.61 L Estim Creat Clear Calc 105 Estimated GFR > 60 Glucose 83 Calcium 8.7 Total Bilirubin 0.4 AST 37 H ALT 53 H Alkaline Phosphatase 76 Total Protein 7.0 Albumin 3.9 Discharge Plan Discharge Attending physician on discharge: Che Chang Consulting providers: Drew Alejandro Discharging Clinician: Valeria Dumont Anticipated Discharge Date/Time: 11/16/24 13:48 Patient Disposition: Home Activity: as tolerated Diet: as tolerated and heart healthy Discharge Instructions: Discharge disposition: Patient admitted to the hospital for flank pain secondary to kidney stones Underwent cystoscopy, left retrograde, left ureteroscopy with stone extraction, left stent placement on 11/[address] Alejandro Take medications as prescribed Tylenol and norco for break through pain Attached is information on this medication Do not drive or operate heavy machinery on this medication Attached is the urology office information Monitor blood pressures, record blood pressures daily Continue losartan, nebivolol and hydrochlorothiazide as prescribed Started on amlodipine 10 mg daily, attached is information on this medication Take caution while standing, rising, or moving Change positions slowly taking a break between each position change If you standing feel dizzy sit back down and take a break Follow up with pain management as it appears you have not been taking the pain medications they previously prescribed Encouraged to continue with yearly vaccinations Return to the emergency department if he developed sudden shortness of breath, chest pain, nausea, vomiting, upset stomach or intractable diarrhea Return to the emergency department if you develop fever greater than 101.5 Follow-up with the primary care physician within 1-2 weeks Thank you for choosing [facility] for your healthcare needs Patient Instructions: Hydrocodone/Acetaminophen (By mouth), Amlodipine (By mouth), Kidney Stones (DC), Hypertension (DC), Cystoscopy (DC), Ureteroscopy (DC) Patient Language: Bulgarian Stand Alone Forms: General Discharge Information Follow-up/Referrals: Drew Alejandro MD [Physician] - Lucas aCrter DO [Primary Care Provider] - 1 Week Discharge Medications: New hydrocodone-acetaminophen 5-325 mg Tablet 1 tablet PO Q4H PRN (Reason: Pain Rated 4-6) Qty: 12 0RF amlodipine 10 mg Tablet 10 mg PO DAILY Qty: 30 0RF Continued multivitamin Tablet 1 tablet PO DAILY ondansetron 4 mg tablet,disintegrating 4 mg PO Q8H Qty: 14 0RF hydrochlorothiazide 25 mg tablet 25 mg PO DAILY nebivolol [Bystolic] 10 mg tablet 10 mg PO DAILY acetaminophen 500 mg capsule 1,000 mg PO Q6H PRN (Reason: pain) Qty: 30 0RF tamsulosin 0.4 mg capsule 0.4 mg PO DAILY Qty: 14 0RF losartan 50 mg tablet 50 mg PO BID Qty: 180 0RF Discontinued pregabalin 150 mg capsule 150 mg PO Q8H PRN (Reason: pain) cephalexin 500 mg capsule 500 mg PO Q12H Qty: 10 0RF hydrocodone-acetaminophen 5-325 mg tablet 1 tablet PO Q8H PRN (Reason: pain) Qty: 10 0RF phenazopyridine 100 mg tablet 100 mg PO TID PRN (Reason: pain) 2 Days Qty: 5 0RF Rx Instructions: after meals; received first dose in ED 3/16 AM hydrocodone-acetaminophen 5-325 mg tablet 1 tablet PO Q8H PRN (Reason: pain) Qty: 10 0RF ondansetron 4 mg tablet,disintegrating 4 mg PO Q8H PRN (Reason: nausea and vomiting) Qty: 7 0RF acetaminophen 500 mg tablet 1,000 mg PO TID PRN (Reason: carmen) 7 Days Qty: 42 0RF oxycodone 5 mg tablet 5 mg PO Q4H PRN (Reason: pain) Qty: 20 0RF ondansetron 4 mg tablet,disintegrating 4 mg PO Q6H PRN (Reason: nausea and vomiting) Qty: 14 0RF phenazopyridine [Pyridium] 200 mg tablet 200 mg PO TID PRN (Reason: pain) Qty: 20 0RF Date of admission: 11/14/24 01:58 Primary Care Provider: Lucas Catrer Admitting Provider: Linda Up Attending physician on admission: Valeria Dumont Condition: Stable Hospitalist MIPS Heart Failure (Exclusion) Patient has history of Heart Transplant or Left Ventricular Assistive Device?: No IF YES, STOP HERE Heart Failure (Qualifier) Patient has current or prior documentation of LVEF less than or equal to 40%, or mod/servere depressed LVSF?: No IF NO, STOP HERE
== END 2024-11-16 15:45 | disposition home or self-care (01) ==
LOC: ANHED 11-14 01:58 → ANH3MED 11-14 06:30
PROVIDERS: Student in an Organized Health Care Education/Training Program; Urology; Admitting Provider General Practice; Emergency Provider Registered Nurse; PCP Internal Medicine; Visit Provider Student in an Organized Health Care Education/Training Program
PROC: (CPT 52352; principal; 2024-11-14 09:15)
DX: N20.1 Calculus of ureter (principal); I16.0 Hypertensive urgency; I10 Essential (primary) hypertension; E66.9 Obesity, unspecified; Z68.34 Body mass index [BMI] 34.0-34.9, adult; K21.9 Gastro-esophageal reflux disease without esophagitis; F17.210 Nicotine dependence, cigarettes, uncomplicated; F32.A Depression, unspecified; Z87.442 Personal history of urinary calculi; Z90.710 Acquired absence of both cervix and uterus; Z90.49 Acquired absence of other specified parts of digestive tract; Z79.899 Other long term (current) 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
CPT/HCPCS: 52352; 52332; 36415; 74018; 74177; 74420; 80053; 81001; 82088; 82365; 82533; 85025; 85027; 88300; 93976; 96361; 96374; 96375; 99285; A9270; C1769; C1894; C2617; G0378; G0379; J0690; J1100; J1171; J2405; J2704; J3010; J7030; J7120; Q9966; Q9967

== ENCOUNTER 2024-11-23 14:28 | Emergency (ER) | payer OTHER, SELFPAY ==
--- NOTE | ~2024-11-23 | CT_ITS ---
EXAMINATION: CT abdomen pelvis wo con DATE: 11/23/2024 16:30 INDICATION: Flank pain, right greater than left. TECHNIQUE: Computed tomography (CT) of the abdomen and pelvis was performed without intravenous contr ast. Automated exposure control and iterative reconstruction technique were employed. The dose-length product was 240.46 mGy-cm. COMPARISON: 11/13/2024 FINDINGS: Heart size is normal. No pericardial or pleural effusion. Diffuse hepatic steatosis. Cholecystectomy clips the gallbladder fossa. Spleen, pancreas and bilateral adrenal glands are normal bilateral nonob structing nephrolithiasis with couple stones measuring up to 2 mm in the left kidney and one stone me asuring up to 1-2 mm in the right kidney. No ureteral stones or hydronephrosis. Unchanged phleboliths in the pelvis. Persistent 0.5 cm left adnexal cyst. The uterus and right ovary are not identified an d have likely been surgically resected. Bladder is normal. Bowels including the appendix are normal. No free intraperitoneal gas or fluid. No pathologically enlarged abdominal or pelvic lymphadenopathy. IMPRESSION: 1. Bilateral nonobstructing nephrolithiasis. No ureteral stones or hydronephrosis. 2. Diffuse hepatic steatosis. Reviewed, dictated and finalized at location A. IMPRESSION: 1. Bilateral nonobstructing nephrolithiasis. No ureteral stones or hydronephros is. 2. Diffuse hepatic steatosis.
[2024-11-23 14:31] VITALS: BP 171/124; PULSE 98; RESP 16; TEMP 36.9; O2SAT 98
[2024-11-23 15:41] LABS: Basophils Percent Auto 0.6 % (0.2-1.2); Eosinophils Absolute Auto 0.1 K/mm3 (0-0.3); Hematocrit 43.3 % (37.0-47.0); Immature Granulocyte Absolute 0.01 K/mm3 (0.00-0.031); Immature Granulocyte Percent A 0.1 % (0-0.5); Lymphocytes Absolute Auto 1.95 K/mm3 (0.9-3.2); Lymphocytes Percent Auto 28.3 % (18.3-44.2); Mean Corpuscular HGB Conc 34.6 g/dl (32-36); Mean Corpuscular Hemoglobin 30.7 pg (26-34); Mean Corpuscular Volume 88.5 fl (80-100); Mean Platelet Volume 10.1 fl (7.4-10.4); Monocytes Absolute Auto 0.5 K/mm3 (0.1-0.6); Monocytes Percent Auto 7.8 % (2.6-8.5); Neutrophils Absolute Auto 4.2 K/mm3 (1.3-6.7); Neutrophils Percent Auto 61.2 % (45.5-73.1); Platelet Count Result 222 k/mm3 (150-375); Red Blood Count 4.89 M/mm3 (4.2-5.4); Red Cell Distribution Width 13.2 % (11.5-14.5); White Blood Count 6.9 K/mm3 (4.5-10.0)
[2024-11-23 15:51] LABS: Alanine Aminotransferase 83 U/L (6-35); Albumin Level 4.5 g/dL (3.5-5.1); Alkaline Phosphatase 88 U/L (38-126); Anion Gap 10 mmol/L (4-12); Aspartate Amino Transferase 74 U/L (14-36); Bilirubin,Total 0.5 mg/dL (0.2-1.3); Blood Urea Nitrogen 12 mg/dL (7-17); Calcium 9.2 mg/dL (8.4-10.2); Carbon Dioxide 22 mmol/L (22-30); Chloride 106 mmol/L (98-107); Estimated CRCL calculation 111 ml/min; Estimated Glomerular Filt Rate > 60; Glucose 136 mg/dL (65-110); Potassium 3.8 mmol/L (3.4-5.0); Sodium 138 mmol/L (137-145)
--- NOTE | 2024-11-23 15:58 | WPDEDEXPGENP ---
HPI - General Ped General Chief complaint: Urogenital-Female Stated complaint: right flank pain Time Seen by Provider: 11/23/24 14:58 History of Present Illness HPI narrative: This is a 54-year-old female is well known to our emergency department for frequent urologic complaints. She is coming today because she developed bilateral flank pain. Patient recently had a stent placed for kidney stones and was removed on November 16. She has been doing well until yesterday when she developed sharp pain in the flanks bilaterally worse in the right. She has had subjective fevers or chills. Denies nausea vomiting diarrhea chest pain difficulty breathing. Related Data Home Medications ?Medication ?Instructions ?Recorded ?Confirmed ?Last Taken ?Type multivitamin 1 tablet PO DAILY 04/04/22 11/23/24 11/13/24 09:00 History nebivolol 10 mg tablet (Bystolic) 10 mg PO DAILY 10/21/24 11/23/24 11/14/24 02:20 History 10 mg omeprazole 20 mg capsule,delayed 20 mg PO DAILY 11/23/24 11/23/24 Unknown History release Allergies Allergy/AdvReac Type Severity Reaction Status Date / Time ketorolac (From Toradol) Allergy Headache,Rash, Verified 11/13/24 21:52 Swollen tongue tramadol AdvReac Mild VOMITING/HE Verified 11/13/24 21:52 ADACHE hydralazine AdvReac Headache Verified 11/13/24 21:52 [facility] Past Medical History Medical History (Updated 11/23/24 @ 17:02 by Adam Carver MD) Left ureteral stone Hypertension Gastroesophageal reflux disease Sleep paralysis, recurrent isolated Smoker Obesity Depression Multiple kidney stones Seasonal allergies Surgical History Surgical History H/O ureteroscopy 10/21/24 on the right due to proximal ureteral stone; Dr Gonzalez History of laparoscopic cholecystectomy on 04/25/23 PDC History of tubal ligation History of endometrial ablation (2009) History of hysterectomy (2015) History of open reduction and internal fixation (ORIF) procedure (2012) Left elbow. History of section 2000, 2001, 2009 Status post cystoscopy with ureteral stent placement Family History Family History Mother Diabetes mellitus Depression Alcoholism Father Hypertension Sibling Congenital heart disease Son Asthma Grandparent Diabetes mellitus Cerebrovascular accident Social History Social History Social History: Surrogate medical decision maker: Bang Luke, spouse. Code status: Full code. Smoking packs per day: 0.5 Smoking cigarettes per day: 10.0 Years smoked: 32 Smoking pack-years: 16.00 Smoking status: Current every day smoker Tobacco type: cigarettes Second hand tobacco smoke exposure: Yes Alcohol intake: never Alcohol use details: Social alcohol use in moderation. Substance use: never Substance use type: does not use Do You Feel Safe in your Home?: Yes Lack of Transportation: No Lack of Food: Never True Current Housing: I Have Housing Concerned About Future Housing: No Difficulty Paying Gas/Electric Bills: No Difficulty Paying for Meds: No Currently Unemployed: No Education: Associate Degree Difficulty w/ Childcare or Family Care: No Living arrangements: with family Spiritual care concerns: No Pediatric Exam Narrative: Physical exam: APPEARANCE: No apparent distress. Head: atraumatic. EYES: EOMI, NOSE: Atraumatic NECK: Trachea midline RESPIRATORY: No increased rate of breathing, CTAB CARDIOVASCULAR: RRR, no peripheral edema ABDOMINAL: Non-distended soft nontender no rebound, CVA tenderness worse left than right MUSCULOSKELETAl: No obvious deformities NEURO: Alert. Moving 4/4 extremities SKIN:: Warm, dry. Normal color PSYCHIATRIC: Normal affect Course Vital Signs Vital signs: Vital Signs Temperature 98.5 F 11/23/24 14:31 Pulse Rate 98 11/23/24 14:31 Respiratory Rate 16 11/23/24 14:31 Blood Pressure 171/124 H 11/23/24 14:31 Pulse Oximetry 98 11/23/24 14:31 Oxygen Delivery Room Air 11/23/24 14:31 Temperature 98.5 F 11/23/24 14:31 Pulse Rate 98 11/23/24 14:31 Respiratory Rate 16 11/23/24 14:31 Blood Pressure 171/124 H 11/23/24 14:31 Pulse Oximetry 98 11/23/24 14:31 Oxygen Delivery Room Air 11/23/24 14:31 Medical Decision Making MDM Narrative Medical decision making narrative: -Course: 44-year-old female presenting with urinary symptoms and flank pain after stent removal. CTA negative for kidney stones. Urine is indicative infection. Patient has been on Keflex, Cipro will be added. She is not septic. she has normal v/s and is well appearing overall. Patient will be discharged follow-up with Urology. Given return precautions. -DDX includes but is not limited to: Kidney stone, pyelonephritis, ureteral spasm Vital Signs Vital Signs: Vital Signs Temperature 98.5 F 11/23/24 14:31 Pulse Rate 98 11/23/24 14:31 Respiratory Rate 16 11/23/24 14:31 Blood Pressure 171/124 H 11/23/24 14:31 Pulse Oximetry 98 11/23/24 14:31 Oxygen Delivery Room Air 11/23/24 14:31 Temperature 98.5 F 11/23/24 14:31 Pulse Rate 98 11/23/24 14:31 Respiratory Rate 16 11/23/24 14:31 Blood Pressure 171/124 H 11/23/24 14:31 Pulse Oximetry 98 11/23/24 14:31 Oxygen Delivery Room Air 11/23/24 14:31 Lab Data 11/23/24 15:31 11/23/24 15:31 Labs: Lab Results 11/23/24 Range/Units 15:31 WBC 6.9 (4.5-10.0) K/mm3 RBC 4.89 (4.2-5.4) M/mm3 Hgb 15.0 (12.0-15.0) g/dL Hct 43.3 (37.0-47.0) % MCV 88.5 (80-100) fl MCH 30.7 (26-34) pg MCHC 34.6 (32-36) g/dl RDW 13.2 (11.5-14.5) % Plt Count 222 (150-375) k/mm3 MPV 10.1 (7.4-10.4) fl Immature Gran % (Auto) 0.1 (0-0.5) % Neut % (Auto) 61.2 (45.5-73.1) % Lymph % (Auto) 28.3 (18.3-44.2) % [facility] % (Auto) 7.8 (2.6-8.5) % Eos % (Auto) 2.0 (0-4.4) % Baso % (Auto) 0.6 (0.2-1.2) % Lymph # (Auto) 1.95 (0.9-3.2) K/mm3 [facility] # (Auto) 0.5 (0.1-0.6) K/mm3 Eos # (Auto) 0.1 (0-0.3) K/mm3 Baso # (Auto) 0.0 (0.0-0.1) K/mm3 Abs Immat Gran (auto) 0.01 (0.00-0.031) K/mm3 Absolute Neuts (auto) 4.2 (1.3-6.7) K/mm3 Absolute Nucleated RBC 0.000 (0.0-0.012) K/mm3 Nucleated RBC % 0.0 (0.0-0.2) % Sodium 138 (137-145) mmol/L Potassium 3.8 (3.4-5.0) mmol/L Chloride 106 (98-107) mmol/L Carbon Dioxide 22 (22-30) mmol/L Anion Gap 10 (4-12) mmol/L BUN 12 (7-17) mg/dL Creatinine 0.56 L (0.7-1.0) mg/dL Estim Creat Clear Calc 111 ml/min Estimated GFR > 60 (59 - ) Glucose 136 H (65-110) mg/dL Calcium 9.2 (8.4-10.2) mg/dL Total Bilirubin 0.5 (0.2-1.3) mg/dL AST 74 H (14-36) U/L ALT 83 H (6-35) U/L Alkaline Phosphatase 88 (38-126) U/L Total Protein 8.0 (6.3-8.2) g/dL Albumin 4.5 (3.5-5.1) g/dL Urine Color Yellow (Yellow) Urine Appearance Clear (Clear) Urine pH 5.0 (5.0-9.0) Ur Specific [place] 1.029 (1.001-1.035) Urine Protein 1+ H (Negative) mg/dL Urine Glucose (UA) Negative (Negative) mg/dL Urine Ketones Trace H (Negative) mg/dL Ur Blood (Man) Trace (Negative) Urine Nitrate Negative (Negative) Urine Bilirubin Negative (Negative) Urine Urobilinogen 0.2 (<2.0) mg/dL Add Ur Microanalysis Reviewed Leukocyte Esterase Rfl 1+ H (Negative) ALEKSANDRA/UL Urine RBC 3-5 H (0-2) /hpf Urine WBC 21-50 H (0-3) /hpf Ur Squamous Epith Cells Occasional (Few) /hpf Calcium Oxalate Crystal Present (None) /hpf Urine Bacteria Rare /hpf Urine Casts 0-2 Urine Mucus Present /lpf Discharge Plan Discharge Clinical Impression: Pyelonephritis Patient Disposition: Home Condition: Stable Instructions: Antibiotic Form, Kidney Infection (ED) Additional Instructions: You were seen in the emergency department for kidney infection. Please take Keppra twice a day for 14 days. Please follow-up with urologist in 5-7 days. If you feel you are getting worse (fevers, increasing pain, fatigue, weakness) return to the ED immediately. Patient Language: Albanian Prescriptions: New ciprofloxacin HCl [Cipro] 500 mg tablet 500 mg PO Q12H 14 Days Qty: 28 0RF No Action multivitamin Tablet 1 tablet PO DAILY ondansetron 4 mg tablet,disintegrating 4 mg PO Q8H Qty: 14 0RF nebivolol [Bystolic] 10 mg tablet 10 mg PO DAILY acetaminophen 500 mg capsule 1,000 mg PO Q6H PRN (Reason: pain) Qty: 30 0RF hydrocodone-acetaminophen 5-325 mg Tablet 1 tablet PO Q4H PRN (Reason: Pain Rated 4-6) Qty: 12 0RF tamsulosin 0.4 mg capsule 0.4 mg PO DAILY Qty: 14 0RF omeprazole 20 mg capsule,delayed release(DR/EC) 20 mg PO DAILY amlodipine 10 mg tablet See Rx Instructions .ROUTE .COMPLEX Qty: 90 0RF Dose Instruction: TAKE 1 TABLET BY MOUTH DAILY Rx Instructions: TAKE 1 TABLET BY MOUTH DAILY losartan 50 mg tablet See Rx Instructions .ROUTE .COMPLEX Qty: 180 0RF Dose Instruction: TAKE 1 TABLET BY MOUTH TWICE DAILY Rx Instructions: TAKE 1 TABLET BY MOUTH TWICE DAILY hydrochlorothiazide 25 mg tablet See Rx Instructions .ROUTE .COMPLEX Qty: 90 0RF Dose Instruction: TAKE 1 TABLET BY MOUTH EVERY MORNING Rx Instructions: TAKE 1 TABLET BY MOUTH EVERY MORNING Follow-up/Referrals: Drew Alejandro MD [Physician] - 1 Week Lucas Carter DO [Primary Care Provider] -
[2024-11-23 16:03] LABS: Add Urine Microscopic? YES; Appearance Urine Clear (Clear); Bacteria Urine Rare /hpf; Bilirubin Urine Negative (Negative); Blood Urine Trace (Negative); Calcium Oxalate Crystals Urine Present /hpf; Color Urine Yellow (Yellow); Glucose Urine UA Negative (Negative); Ketones Urine Trace mg/dL (Negative); Leukocyte Esterase Ur 1+ LEU/UL (Negative); Mucus Urine Present /lpf; Need Manual Microscopic Reviewed; Nitrate Urine Negative (Negative); Non Pathogenic Casts 0-2; Protein Urine 1+ mg/dL (Negative); Specific Grav Ur 1.029 (1.001-1.035); Squamous Epithelial Cell Urine Occasional /hpf (Few); Urobilinogen Urine 0.2 mg/dL (<2.0); WBC Urine 21-50 /hpf (0-3)
--- OUTSIDE RECORDS SUMMARY | 2024-11-23 16:12 | XMS_ITS | Referral Summary ---
Author Organization [facility] Address [address] [place] [address] Care Team Providers Care Costume Cutter Name Role Phone Lucas Carter DO Primary Care Provider [phone]- [phone] Encounters Date Type Department Care Team Description 10/31/2024 4:48 PM CDT - 10/31/2024 10:51 PM CDT Emergency [facility] Emergency Department [address] [place] [address] Yanni Garcia MD Flank pain (Primary Dx) Discharge Disposition: Discharge to home or self care from Last 3 Months Allergies Active Allergy Reactions Criticality Noted Date Comments Hydralazine Headache,Vomiting Low 01/21/2024 Ketorolac Hives,Itching Medium 10/17/2017 Tramadol Hives,Urticaria Medium 08/27/2016 Medications omeprazole (PriLOSEC) 20 mg capsuleIndications :Treatment of Non-Bleeding Gastric Disorder Take 1 capsule (20 mg total) by mouth professor of early childhood education 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 Active MULTIVIT-MINERALS/ FERROUS FUM (MULTI VITAMIN ORAL)Indications:h ealth Take 1 tablet by mouth professor of early childhood education 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 Active ondansetron ODT (ZOFRAN-ODT) 4 [...] 1 tablet (25 mg total) by mouth professor of early childhood education 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 Active nebivoloL (BYSTOLIC) 10 mg [...] on file Legal Sex Female 9:06 PM SAWMILL HAND Gender Identity Female 10/01/2023 8:44 AM SAWMILL HAND Sexual Orientation Straight 10/01/2023 8: 44 AM SAWMILL HAND Last Filed Vital Signs Vital Sign Reading [...] cm (5' 3 ) 06/29/2024 7:50 AM SAWMILL HAND Body Mass Index 32.57 06/29/2024 7:50 AM SAWMILL HAND Plan of Treatment Not on file Goals [...] on stairs Contact your local community or [facility] for information on exercise, fall prevention programs, or options for improving home safety. Medical Devices Implanted Type Area Welder Fitter Gas Device Identifier Shelf Expiration Date Model / [...] MD LAB BLOOD ORDERABLES Final R esult [facility] [place] [address] * (ABNORMAL) Differential, auto (10/31/2024 5:42 PM CDT) Neutrophil abs 5.6 1.5 - 6.5 K/cumm Imm gran abs 0.0 0.0 - 0.1 K/cumm [facility] Lymphocyte abs 2.3 0.8 - 3.3 K/cumm [facility] Monocyte abs 0.9(H) 0.2 - 0.8 K/cumm [facility] Eosinophil abs 0.1 0.0 - 0.5 K/cumm [facility] Basophil abs 0.1 0.0 - 0.1 K/cumm [facility] Neutrophil pct 62.4 % [facility] Comment: Interpretive Data Percent cell count reference ranges are not reported, since discordance with absolute values may lead to misinterpretation of CBC data. Current Interpretive Data was last revised on 2017. Imm gran pct 0.3 % [facility] Comment: Interpretive Data Percent cell count reference ranges are not reported, since discordance with absolute values may lead to misinterpretation of CBC data. Current Interpretive Data was last revised on 2017. Lymphocyte pct 25.2 % [facility] Comment: Interpretive Data Percent cell count reference ranges are not reported, since discordance with absolute values may lead to misinterpretation of CBC data. Current Interpretive Data was last revised on 2017. Monocyte pct 10.0 % [facility] Comment: Interpretive Data Percent cell count reference ranges are not reported, since discordance with absolute values may lead to misinterpretation of CBC data. Current Interpretive Data was last revised on 2017. Eosinophil pct 1.5 % [facility] Comment: Interpretive Data Percent cell count reference ranges are not reported, since discordance with absolute values may lead to misinterpretation of CBC data. Current Interpretive Data was last revised on 2017. Basophil pct 0.6 % [facility] Comment: Interpretive Data Percent cell count reference ranges are not reported, since discordance with absolute values may lead to misinterpretation of CBC data. Current Interpretive Data was last revised on 2017. Blood 10/31/2024 5:42 PM CDT 10/31/2024 5:51 PM CDT us Severo Mckeon MD LAB BLOOD ORDERABLES Final R esult [facility] [place] [address] * Urinalysis reflex to microscopic and culture Urine (10/31/2024 5:42 PM CDT) Color, ur Straw Yellow Clarity, ur Clear Clear [facility] Specific gravity, ur 1.011 1.003 - 1.030 [facility] pH, urine 5.5 [facility] Comment: Interpretive Data U rine pH is affected by diet, medications, systemic acid-base disturbances, and renal tubular function. pH may affect urinary stone formation. For example, urine pH below 6.0 may help reduce the tendency for calcium phosphate stones and pH greater than 6.0 may reduce the tendency for uric acid stone formation. Source: [facility] [employer] Current Interpretive Data was last revised on 2017 Protein, ur ql Negative Negative [facility] Glucose, ur ql Negative Negative [facility] Ketones, ur Negative Negative [facility] Bilirubin, ur Negative Negative [facility] Blood, ur Negative Negative [facility] Urobilinogen, ur <2.0 <2.0 mg/dL [facility] Nitrite, ur Negative Negative [facility] Leukocyte esterase, ur Negative Negative [facility] UA reflex comment Reflex conditions for microscopic UA and culture not met. [facility] Urine 10/31/2024 5:42 PM CDT 10/31/2024 5:49 PM CDT us Minda Gurrola MD LAB MICROBIOLOGY - GENER AL ORDERABLES Final Result [facility] [place] [address] * (ABNORMAL) CBC with auto differential (10/31/2024 5:42 PM CDT) WBC 8.9 3.8 - 9.9 K/cumm Hgb 16.1(H) 11.9 - 15.5 g/dL [facility] Hct 45.8(H) 35.6 - 45.5 % [facility] Plt 319 150 - 400 K/cumm [facility] MPV 9.2 9.1 - 12.3 fL [facility] RBC 5.35(H) 3.90 - 5.20 M/cumm [facility] MCV 85.6 81.3 - 96.4 fL [facility] MCH 30.1 27.1 - 33.3 pg [facility] MCHC 35.2 32.3 - 35.7 g/dL [facility] RDW CV 12.5 11.1 - 14.9 % [facility] RDW SD 38.8 35.7 - 48.1 fL [facility] NRBC abs 0.00 0.00 - 0.01 K/cumm [facility] Blood Venous blood specimen / Unknown 10/31/2024 5:42 PM CDT 10/31/2024 5:51 PM CDT us Yanni Garcia MD LAB BLOOD ORDERABLES Final Result [facility] [place] [address] * Lipase (10/31/2024 5:42 PM CDT) Pathologist [facility] Lipase 41 10 - 99 Units/L Blood Venous blood specimen / Unknown 10/31/2024 5:42 PM CDT 10/31/2024 5:51 PM CDT us Yanni Garcia MD LAB BLOOD ORDERABLES Final Result [facility] [place] [address] * (ABNORMAL) Comprehensive metabolic panel (10/31/2024 5:42 PM CDT) Sodium 142 135 - 145 mmol/L Potassium, pl 4.2 3.3 - 4.9 mmol/L [facility] Chloride 105 97 - 110 mmol/L [facility] CO2 24 22 - 32 mmol/L [facility] Anion gap 13 2 - 15 mmol/L [facility] BUN 9 6 - 25 mg/dL [facility] Creatinine 0.65 0.60 - 1.10 mg/dL [facility] Glucose 84 70 - 199 mg/dL [facility] [...] 2022. Calcium 10.3 8.5 - 10.3 mg/dL [facility] Bilirubin, total 0.3 0.1 - 1.2 mg/dL [facility] Protein, pl 8.3 6.5 - 8.5 g/dL [facility] Albumin 4.7 3.5 - 5.0 g/dL [facility] Alk phos 105 40 - 130 Units/L [facility] ALT 68(H) 7 - 45 Units/L [facility] AST 48(H) 10 - 45 Units/L [facility] Blood Venous blood specimen / Unknown 10/31/2024 5:42 PM CDT 10/31/2024 5:51 PM CDT Yanni Garcia MD LAB BLOOD ORDERABLES Final Result [facility] [place] [address] * ECG 12-LEAD (10/31/2024 4:30 PM CDT) [...] MD ECG ORDERABLES Final Resul t [facility] from Last 3 Months Insurance IDPA [facility] H[facility]/PPO Address: [address] [address] [place] [address] [facility] IDPA IDPA Advance Directives For more information, please contact: [phone] * Full Code (Latest Code Status on File) Date Activated Date Inactivated Comments 08/15/2022 3:10 PM 08/18/2022 6:09 PM Care Teams Costume Cutter Relationship Specialty Start Date End Date Lucsa Carter DO PCP - General Internal Medicine 08/15/22
--- OUTSIDE RECORDS SUMMARY | 2024-11-23 16:12 | XMS_ITS | Clinical Summary ---
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 Hearing loss Maternal Grandmother [place] Alcohol abuse Mother Melodye Arthritis Mother Melodye [...] on file Legal Sex Female 9:06 PM WASTE MANAGEMENT ENGINEER Gender Identity Female 10/01/2023 8:44 AM WASTE MANAGEMENT ENGINEER Sexual Orientation Straight 10/01/2023 8: 44 AM WASTE MANAGEMENT ENGINEER Obstetrics History Para Term AB IAB [...] cm (5' 3 ) 06/29/2024 7:50 AM WASTE MANAGEMENT ENGINEER Body Mass Index 32.57 06/29/2024 7:50 AM WASTE MANAGEMENT ENGINEER Plan of Treatment Health Maintenance Due [...] on stairs Contact your local community or [facility] for information on exercise, fall prevention programs, or options for improving home safety. Medical Devices Implanted Type Area Senior System Operator Device Identifier Shelf Expiration Date Model [...] MD LAB BLOOD ORDERABLES Final R esult [facility] [place] [address] * (ABNORMAL) Differential, auto (10/31/2024 5:42 PM CDT) Pathologist [facility] Neutrophil abs 5.6 1.5 - 6.5 K/cumm Imm gran abs 0.0 0.0 - 0.1 K/cumm [facility] Lymphocyte abs 2.3 0.8 - 3.3 K/cumm [facility] Monocyte abs 0.9(H) 0.2 - 0.8 K/cumm [facility] Eosinophil abs 0.1 0.0 - 0.5 K/cumm [facility] Basophil abs 0.1 0.0 - 0.1 K/cumm [facility] Neutrophil pct 62.4 % [facility] Comment: Interpretive Data Percent cell count reference ranges are not reported, since discordance with absolute values may lead to misinterpretation of CBC data. Current Interpretive Data was last revised on 2017. Imm gran pct 0.3 % [facility] Comment: Interpretive Data Percent cell count reference ranges are not reported, since discordance with absolute values may lead to misinterpretation of CBC data. Current Interpretive Data was last revised on 2017. Lymphocyte pct 25.2 % [facility] Comment: Interpretive Data Percent cell count reference ranges are not reported, since discordance with absolute values may lead to misinterpretation of CBC data. Current Interpretive Data was last revised on 2017. Monocyte pct 10.0 % [facility] Comment: Interpretive Data Percent cell count reference ranges are not reported, since discordance with absolute values may lead to misinterpretation of CBC data. Current Interpretive Data was last revised on 2017. Eosinophil pct 1.5 % [facility] Comment: Interpretive Data Percent cell count reference ranges are not reported, since discordance with absolute values may lead to misinterpretation of CBC data. Current Interpretive Data was last revised on 2017. Basophil pct 0.6 % [facility] Comment: Interpretive Data Percent cell count reference ranges are not reported, since discordance with absolute values may lead to misinterpretation of CBC data. Current Interpretive Data was last revised on 2017. Blood 10/31/2024 5:42 PM CDT 10/31/2024 5:51 PM CDT Severo Mckeon MD LAB BLOOD ORDERABLES Final R esult [facility] [place] [address] * Urinalysis reflex to microscopic and culture Urine (10/31/2024 5:42 PM CDT) Color, ur Straw Yellow Clarity, ur Clear Clear [facility] Specific gravity, ur 1.011 1.003 - 1.030 [facility] pH, urine 5.5 [facility] Comment: Interpretive Data U rine pH is affected by diet, medications, systemic acid-base disturbances, and renal tubular function. pH may affect urinary stone formation. For example, urine pH below 6.0 may help reduce the tendency for calcium phosphate stones and pH greater than 6.0 may reduce the tendency for uric acid stone formation. Source: [facility] Current Interpretive Data was last revised on 2017 Protein, ur ql Negative Negative [facility] Glucose, ur ql Negative Negative [facility] Ketones, ur Negative Negative [facility] Bilirubin, ur Negative Negative [facility] Blood, ur Negative Negative [facility] Urobilinogen, ur <2.0 <2.0 mg/dL [facility] Nitrite, ur Negative Negative [facility] Leukocyte esterase, ur Negative Negative [facility] UA reflex comment Reflex conditions for microscopic UA and culture not met. [facility] Urine 10/31/2024 5:42 PM CDT 10/31/2024 5:49 PM CDT Minda Gurrola MD LAB MICROBIOLOGY - [facility] AL ORDERABLES Final Result Performing Organization Address [facility]/ZIP Co de Phone Number [facility] [place] [address] * (ABNORMAL) CBC with auto differential (10/31/2024 5:42 PM CDT) [facility] WBC 8.9 3.8 - 9.9 K/cumm Hgb 16.1(H) 11.9 - 15.5 g/dL [facility] Hct 45.8(H) 35.6 - 45.5 % [facility] Plt 319 150 - 400 K/cumm [facility] MPV 9.2 9.1 - 12.3 fL [facility] RBC 5.35(H) 3.90 - 5.20 M/cumm [facility] MCV 85.6 81.3 - 96.4 fL [facility] MCH 30.1 27.1 - 33.3 pg [facility] MCHC 35.2 32.3 - 35.7 g/dL [facility] RDW CV 12.5 11.1 - 14.9 % [facility] RDW SD 38.8 35.7 - 48.1 fL [facility] NRBC abs 0.00 0.00 - 0.01 K/cumm [facility] Blood Venous blood specimen / Unknown 10/31/2024 5:42 PM CDT 10/31/2024 5:51 PM CDT Yanni Garcia MD LAB BLOOD ORDERABLES Final Result [facility] [place] [address] * Lipase (10/31/2024 5:42 PM CDT) [facility] Lipase 41 10 - 99 Units/L Blood Venous blood specimen / Unknown 10/31/2024 5:42 PM CDT 10/31/2024 5:51 PM CDT Yanni Garcia MD LAB BLOOD ORDERABLES Final Result [facility] [place] [address] * (ABNORMAL) Comprehensive metabolic panel (10/31/2024 5:42 PM CDT) Sodium 142 135 - 145 mmol/L Potassium, pl 4.2 3.3 - 4.9 mmol/L [facility] Chloride 105 97 - 110 mmol/L [facility] CO2 24 22 - 32 mmol/L [facility] Anion gap 13 2 - 15 mmol/L [facility] BUN 9 6 - 25 mg/dL [facility] Creatinine 0.65 0.60 - 1.10 mg/dL [facility] Glucose 84 70 - 199 mg/dL [facility] Comment: Interpretive Data Fasting glucose >/= 126 [...] Calcium 10.3 8.5 - 10.3 mg/dL [facility] Bilirubin, total 0.3 0.1 - 1.2 mg/dL [facility] Protein, pl 8.3 6.5 - 8.5 g/dL [facility] Albumin 4.7 3.5 - 5.0 g/dL [facility] Alk phos 105 40 - 130 Units/L [facility] ALT 68(H) 7 - 45 Units/L [facility] AST 48(H) 10 - 45 Units/L [facility] Blood Venous blood specimen / Unknown 10/31/2024 5:42 PM CDT 10/31/2024 5:51 PM CDT Yanni Garcia MD LAB BLOOD ORDERABLES Final Result Performing Organization Address City/[facility]/ZIP Co de Phone Number [facility] [place] [address] * ECG 12-LEAD (10/31/2024 4:30 PM CDT) Narrative [facility] - 10/31/2024 4:30 PM CDT Yanni Garcia [...] in the ED Yanni Garcia MD 10/31/24 [id number] us Yanni Garcia MD ECG ORDERABLES Final Resul t [facility] from Last 3 Months Insurance IDPA [facility] CHOICE PLUS [facility] IDPA IDPA Advance Directives For more information, please contact: [phone] * Full Code (Latest Code Status on File) Date Activated Date Inactivated Comments 08/15/2022 3:10 PM 08/18/2022 6:09 PM Care Teams Marine Gear Keeper Relationship Specialty Start Date End Date Lucas Carter DO PCP - General Internal Medicine 08/15/22
--- OUTSIDE RECORDS SUMMARY | 2024-11-23 16:12 | XMS_ITS | CONTINUITY OF CARE DOCUMENT ---
Author Name [email or web address] Address Unknown Organization [facility] Address [address] [place] [address] Phone [phone] Care Team Providers Care Urgent Care Technician Name Role Phone William CURIEL, Herlinda Unavailable SHAWNEE CURIEL, NABIL Schmidt Unavailable INSURANCE PROVIDERS Payer name Policy type / Coverage type Bj red republican [place] [employer] MED[place] Medicaid [id number] [facility] [id number]
--- OUTSIDE RECORDS SUMMARY | 2024-11-23 16:13 | XMS_ITS | Clinical Summary ---
Author Organization [facility] Address [address] [place] [address] Care Team Providers Care Non Destructive Evaluation Technician Name Role Phone Damian Sadler MD Primary Care Provider [phone] Source Comments [facility],non-owned Affiliates and Associated Physician Practices is amultiple site organization consisting of ambulatory clinics and hospital sitesin [place], [place], [place] and [place]. This disclosure is being madepursuant to the Care Everywhere program and may not contain all information available regarding this patient. Last updated 18.[facility] Allergies Active Allergy Reactions Criticality Noted Date Comments Hydralazine Vomiting 02/02/2024 Ketorolac Itching 06/04/2019 Tramadol Urticaria Medium 08/27/2016 Medications * Be aware that medications may not be up to date on this document. Alwaysverify current medications with the patient. omeprazole (PRILOSEC) 20 MG capsule Take 1 (one) capsule by mouth daily 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 Active tamsulosin (Flomax) 0.4 MG capsule Take 1 (one) capsule by mouth once daily after breakfast At the same time every day after a meal. 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 Not on file Not on file Not on f ile Last Filed Vital Signs Vital Sign Reading [...] Resulting Agency Comment [facility] [address] [id number] us Nancy Cotto MD LAB - CHEMISTRY ORDERABLES Final Result [facility] INSURANCE BILL [address] [place] [address] * (ABNORMAL) COMPREHENSIVE METABOLIC PANEL (02/03/2024 1:03 AM [facility]) BUN 9 7 - 26 mg/dL 02/03/2024 1:45 AM [facility] Creatinine 0.64 0.56 - 0.96 mg/dL 02/03/2024 1:45 AM [facility] Sodium 139 136 - 145 mmol/L 02/03/2024 1:45 AM [facility] Potassium 3.4(L) 3.5 - 4.5 mmol/L 02/03/2024 1:45 AM [facility] Chloride 107 98 - 107 mmol/L 02/03/2024 1:45 AM [facility] CO2 21(L) 22 - 29 mmol/L 02/03/2024 1:45 AM [facility] Glucose 78 70 - 115 mg/dL 02/03/2024 1:45 AM [facility] Calcium 9.9 8.4 - 10.2 mg/dL 02/03/2024 1:45 AM [facility] Protein Total 7.7 6.0 - 8.3 g/dL 02/03/2024 1:45 AM [facility] Albumin 4.4 3.4 - 5.0 g/dL 02/03/2024 1:45 AM [facility] Bilirubin Total 0.4 0.2 - 1.2 mg/dL 02/03/2024 1:45 AM [facility] Alkaline Phosphatase 81 40 - 150 U/L 02/03/2024 1:45 AM [facility] ALT 58(H) 5 - 55 U/L 02/03/2024 1:45 AM [facility] AST 33 5 - 34 U/L 02/03/2024 1:45 AM [facility] Anion Gap 11 6 - 16 02/03/2024 1:45 AM [facility] BUN/Creatinine Ratio 14 7 - 23 02/03/2024 1:45 AM [facility] Osmolality Calculated 286 275 - 295 mOsm/kg 02/03/2024 1:45 AM [facility] Albumin/Globulin Ratio 1.3 1.1 - 2.3 02/03/2024 1:45 AM T [facility] eGFR by CKD-EPI >90 >=90 mL/min/1.7 3 m2 02/03/2024 1:45 AM T [facility] Blood BLOOD SPECIMEN / Unknown Venipuncture / Unknown 02/03/2024 1:03 AM CDT 02/03/2024 1:17 AM CDT Kaylee Reyes MD LAB - CHEMISTRY ORDERABLES Fi nal Result [facility] [address] [place] [address], [facility] [phone] from Last 3 Months or Most Recently Relevant to Health Maintenance Insurance [phone] (Work) [address] [place] [id number] MEDICAID [place] SELF PAY NO INSURANCE Member Subscriber Plan / Payer (Ef fective for All Dates) Name:Tita Luke Member ID:Not on file Relation to Subscriber:Not on file Name:TITA LUKE Subscriber ID:Not on file (Home) Address: [address] [place] [id number] Payer ID:Not on file Group ID:Not on file Type:Self Pay Address: [facility] Care Teams Non Destructive Evaluation Technician Relationship Specialty Start Date End Date Damian Sadler MD PCP - General Internal Medicine 07/04/16
--- OUTSIDE RECORDS SUMMARY | 2024-11-23 16:13 | XMS_ITS | Clinical Summary ---
Author Organization [facility] Address [address] [place] [address] Phone Care Team Providers Care Kinesiotherapist Name Role Phone Unavailable Primary Care Provider Unavailabl e Allergies Active Allergy Reactions Criticality Noted Date Comments Hydralazine Vomiting 11/13/2024 Ketorolac Tromethamine Swelling,Vomiting ,Ot her (see Comments) 11/13/2024 Headache, tongue swells Tramadol Swelling,Vomiting 11/13/2024 Swelling of tongue, vomitung Medications losartan (COZAAR) 50 MG Tablet Take 50 mg by mouth 2 times daily. 11/17/19 Discontinu ed(Patient Discharge) hydroCHLOROthia zide 25 MG Tablet Take 25 mg by mouth daily. 11/17/19 Discontinu ed(Patient Discharge) Nebivolol HCl 10 MG Tablet Take by mouth nightly. 11/17/19 Discontinu ed(Patient Discharge) omeprazole (PriLOSEC) 20 MG CAPSULE DELAYED RELEASE Take 20 mg by mouth nightly. 11/17/19 Discontinu ed(Patient Discharge) Encounters Date Type Department Care Team Description 11/13/2024 Travel 11/13/2024 Telephone [facility] [address] [place] [address] Carlyle Calderon MD 11/12/2024 Telephone [facility] [address] [place] [address] Carlyle Calderon MD from Last [...] 11/13/2024 3:13 PM CDT Plan of Treatment Health Maintenance Due Date Last Done Comments Hepatitis C Virus (HCV) Screening 1979 Mammogram 1979 TdaP Immunization 1979 Hepatitis B Immunization (1 of 3 - 19+ 3-dose series) 1998 Pneumococcal Immunization Co mbined (1 of 2 - PCV) 1998 Discussion re Starting/Frequ ency of Mammograms 2019 Colonoscopy 02/26/2024 Colorectal Cancer Screening 02/26/2024 SARS-COV-2 Immunization ( - season) 2024 Influenza Immunization (Seas on Ended) 2025 Respiratory Syncytial Virus (RSV) Immunization (Adult) (1 - 1-dose 75+ series) 2054 Meningococcal Immunization (ACWY) Aged Out No longer eligible based on patient's age to complete this topic Rotavirus Immunization Aged Out No lo nger eligible based on patient's age to complete this topic Insurance MEDICAID [place]
[2024-11-23] MEDS: CIPROFLOXACIN 500 MG TAB PO (17:08)
[2024-11-23 17:09] VITALS: TEMP 36.6
[2024-11-23] MEDS: IBUPROFEN IV 800 MG/200 ML 800 MG/200 ML BAG 400 MG IVPB (17:09)
--- OUTSIDE RECORDS SUMMARY | 2024-11-23 17:17 | XMS_ITS | CONTINUITY OF CARE DOCUMENT ---
Author Name [email or web address] Address Unknown Organization [facility] Address [address] [place] [address] Phone [phone] Care Team Providers Care Chairlift Operator Name Role Phone William CURIEL, Herlinda Unavailable SHAWNEE CURIEL, NABIL Schmidt Unavailable INSURANCE PROVIDERS Payer name Policy type / Coverage type Bj red green party ID [place] MED[place] Medicaid [id number] [facility] [id number]
--- OUTSIDE RECORDS SUMMARY | 2024-11-23 17:17 | XMS_ITS | Clinical Summary ---
Author Organization [facility] Address [address] [place] [address] Care Team Providers Care Transportation Engineering Technician Name Role Phone Damian Sadler MD Primary Care Provider [phone] Source Comments [facility],non-owned Affiliates and Associated Physician Practices is amultiple site organization consisting of ambulatory clinics and hospital sitesin [place], [place], [place] and [place]. This disclosure is being madepursuant to the Care Everywhere program and may not contain all information available regarding this patient. Last updated 18.[facility] Allergies Active Allergy Reactions Criticality Noted Date [...] on file Legal Sex Female 11:41 AM VP CARDIOVASCULAR Gender Identity Not on file Sexual Orientation [...] Agency Comment [facility] [address] [address] [facility] [phone] [place] Nancy Cotto MD LAB - CHEMISTRY ORDERABLES Final Result [facility] INSURANCE BILL [address] [place] [address] * (ABNORMAL) COMPREHENSIVE METABOLIC PANEL (02/03/2024 1:[address] [facility]) BUN 9 7 - 26 mg/dL 02/03/2024 1:45 AM [facility] Creatinine 0.64 0.56 - 0.96 mg/dL 02/03/2024 1:45 AM [facility] Sodium 139 136 - 145 mmol/L 02/03/2024 1:45 AM [facility] Potassium 3.4(L) 3.5 - 4.5 mmol/L 02/03/2024 1:45 AM [facility] Chloride 107 98 - 107 mmol/L 02/03/2024 1:45 AM [facility] CO2 21(L) 22 - 29 mmol/L 02/03/2024 1:45 AM [facility] Glucose 78 70 - 115 mg/dL 02/03/2024 1:45 AM [facility] Calcium 9.9 8.4 - 10.2 mg/dL 02/03/2024 1:45 AM [facility] Protein Total 7.7 6.0 - 8.3 [...] 7 - 23 02/03/2024 1:45 AM [facility] Osmolality Calculated 286 275 - 295 mOsm/kg 02/03/2024 1:45 AM [facility] Albumin/Globulin Ratio 1.3 1.1 - 2.3 02/03/2024 1:45 AM [facility] eGFR by CKD-EPI >90 >=90 mL/min/1.7 3 m2 02/03/2024 1:45 AM [facility] Blood BLOOD SPECIMEN / Unknown Venipuncture / Unknown 02/03/2024 1:03 AM CDT 02/03/2024 1:17 AM CDT Kaylee Reyes MD LAB - CHEMISTRY ORDERABLES Fi nal Result [facility] [address] [place] [address], [facility] [phone] from Last 3 Months or Most Recently Relevant to Health Maintenance Insurance [phone] (Work) [address] [place] [id number] MEDICAID [place] SELF PAY NO INSURANCE Member Subscriber Plan / Payer (Ef fective for All Dates) Name:Tita Luke Member ID:Not on file Relation to Subscriber:Not on file Name:TITA LUKE Subscriber ID:Not on file (Home) Address: [address] [place] [phone] Payer ID:Not on file Group ID:Not on file Type:Self Pay Address: [facility] Care Teams Transportation Engineering Technician Relationship Specialty Start Date End Date Damian Sadler MD PCP - General Internal Medicine 07/04/16
--- OUTSIDE RECORDS SUMMARY | 2024-11-23 17:17 | XMS_ITS | Clinical Summary ---
Author Organization [facility] Address [address] [place] [address] Care Team Providers Care Claims Adjuster Name Role Phone Lucas Carter DO Primary Care Provider [phone] Allergies Active Allergy Reactions Criticality Noted Date Comments Hydralazine Headache,Vomiting Low 01/21/2024 Ketorolac Hives,Itching Medium 10/17/2017 Tramadol Hives,Urticaria Medium 08/27/2016 Medications omeprazole (PriLOSEC) 20 mg capsuleIndication s:Treatment of Non-Bleeding Gastric Disorder Take 1 capsule (20 mg total) by mouth visual merchandising coordinator 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 Active MULTIVIT-MINERALS /FERROUS FUM (MULTI VITAMIN ORAL)Indications: health Take 1 tablet by mouth visual merchandising coordinator 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 Active ondansetron ODT (ZOFRAN-ODT) 4 mg disintegrating tablet Take 1 tablet (4 mg total) by mouth every 8 (eight) hours as needed for nausea or vomiting 20 tablet 08/10/20 23 Active losartan (COZAAR) 50 mg tabletIndications :hypertension Take 1 tablet (50 mg total) by mouth 2 (two) times a day Active hydroCHLOROthiazi de (HYDRODIURIL) 25 mg tabletIndications :hypertension Take 1 tablet (25 mg total) by mouth visual merchandising coordinator 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 Active nebivoloL (BYSTOLIC) 10 mg tabletIndications :hypertension Take 1 tablet (10 mg total) by mouth every other day 01/03/20 24 Active amLODIPine (NORVASC) 10 mg tabletIndications :hypertension Take 1 tablet (10 mg total) by mouth nightly 03/03/20 24 Active ibuprofen 200 mg tab/cap Take 2 tablet/capsu le (400 mg total) by mouth every 6 (six) hours as needed for pain Active HYDROcodone-aceta minophen (NORCO) 5-325 mg per tabletIndications :Pain Take 1 tablet by mouth every 6 (six) hours as needed for pain 8 tablet 07/01/20 24 Active pregabalin (LYRICA) 150 mg capsule Take 1 capsule (150 mg total) by mouth nightly 90 capsule 11/22/19 25 Active cyclobenzaprine (FLEXERIL) 10 mg tablet TAKE 1 TABLET(10 MG) BY MOUTH THREE TIMES DAILY NEEDED FOR MUSCLE SPASMS 90 tablet 1 11/24/19 25 Active cyclobenzaprine (FLEXERIL) 10 mg tablet Take 1 tablet (10 mg total) by mouth 3 (three) times a day as needed for muscle spasms 90 tablet 1 01/29/20 24 2024 Discontinued pregabalin (LYRICA) 150 mg capsule TAKE 1 CAPSULE(150 MG) BY MOUTH TWICE DAILY 60 capsule 09/14/19 25 2024 Discontinued(R himanshu) Active Problems Problem Noted Date Diagnosed Date [...] Emergency [facility] Emergency Department [address] [place] [address] Yanni Garcia MD Flank pain (Primary Dx) [...] Grandfather Beka Sr. 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 Medical Devices Implanted Type Area Training Development Manager Device Identifier Shelf Expiration Date Model / [...] Electronically signed by: Mike Olmstead MD, PHD Midna Gurrola MD IMG CT PROCEDURES Final Result [...] MD LAB BLOOD ORDERABLES Final R esult [facility] Department [place] [address] * (ABNORMAL) Differential, auto (10/31/2024 5:42 PM CDT) Neutrophil abs 5.6 1.5 - 6.5 K/cumm Imm gran abs 0.0 0.0 - 0.1 K/cumm [facility] Lymphocyte abs 2.3 0.8 - 3.3 K/cumm [facility] Monocyte abs 0.9(H) 0.2 - 0.8 K/cumm [facility] Eosinophil abs 0.1 0.0 - 0.5 K/cumm [facility] Basophil abs 0.1 0.0 - 0.1 K/cumm [facility] Neutrophil pct 62.4 % [facility] Comment: Interpretive Data Percent cell count reference ranges are not reported, since discordance with absolute values may lead to misinterpretation of CBC data. Current Interpretive Data was last revised on 2017. Imm gran pct 0.3 % [facility] Comment: Interpretive Data Percent cell count reference ranges are not reported, since discordance with absolute values may lead to misinterpretation of CBC data. Current Interpretive Data was last revised on 2017. Lymphocyte pct 25.2 % [facility] Comment: Interpretive Data Percent cell count reference ranges are not reported, since discordance with absolute values may lead to misinterpretation of CBC data. Current Interpretive Data was last revised on 2017. Monocyte pct 10.0 % [facility] Comment: Interpretive Data Percent cell count reference ranges are not reported, since discordance with absolute values may lead to misinterpretation of CBC data. Current Interpretive Data was last revised on 2017. Eosinophil pct 1.5 % [facility] Comment: Interpretive Data Percent cell count reference ranges are not reported, since discordance with absolute values may lead to misinterpretation of CBC data. Current Interpretive Data was last revised on 2017. Basophil pct 0.6 % [facility] Comment: Interpretive Data Percent cell count reference ranges are not reported, since discordance with absolute values may lead to misinterpretation of CBC data. Current Interpretive Data was last revised on 2017. Blood 10/31/2024 5:42 PM CDT 10/31/2024 5:51 PM CDT Severo Mckeon MD LAB BLOOD ORDERABLES Final R esult [facility] Department [place] [address] * Urinalysis reflex to microscopic and culture Urine (10/31/2024 5:42 PM CDT) Color, ur Straw Yellow Clarity, ur Clear Clear [facility] Specific gravity, ur 1.011 1.003 - 1.030 [facility] pH, urine 5.5 [facility] Comment: Interpretive Data U rine pH is affected by diet, medications, systemic acid-base disturbances, and renal tubular function. pH may affect urinary stone formation. For example, urine pH below 6.0 may help reduce the tendency for calcium phosphate stones and pH greater than 6.0 may reduce the tendency for uric acid stone formation. Source: [facility] Current Interpretive Data was last revised on 2017 Protein, ur ql Negative Negative [facility] Glucose, ur ql Negative Negative [facility] Ketones, ur Negative Negative [facility] Bilirubin, ur Negative Negative [facility] Blood, ur Negative Negative [facility] Urobilinogen, ur <2.0 <2.0 mg/dL [facility] Nitrite, ur Negative Negative [facility] Leukocyte esterase, ur Negative Negative [facility] UA reflex comment Reflex conditions for microscopic UA and culture not met. [facility] Urine 10/31/2024 5:42 PM CDT 10/31/2024 5:49 PM CDT us Minda Gurrola MD LAB MICROBIOLOGY - GENER AL ORDERABLES Final Result [facility] [place] [address] * (ABNORMAL) CBC with auto differential (10/31/2024 5:42 PM CDT) Pathologist [facility] WBC 8.9 3.8 - 9.9 K/cumm Hgb 16.1(H) 11.9 - 15.5 g/dL [facility] Hct 45.8(H) 35.6 - 45.5 % [facility] Plt 319 150 - 400 K/cumm [facility] MPV 9.2 9.1 - 12.3 fL [facility] RBC 5.35(H) 3.90 - 5.20 M/cumm [facility] MCV 85.6 81.3 - 96.4 fL [facility] MCH 30.1 27.1 - 33.3 pg [facility] MCHC 35.2 32.3 - 35.7 g/dL [facility] RDW CV 12.5 11.1 - 14.9 % [facility] RDW SD 38.8 35.7 - 48.1 fL [facility] NRBC abs 0.00 0.00 - 0.01 K/cumm [facility] Blood Venous blood specimen / Unknown 10/31/2024 5:42 PM CDT 10/31/2024 5:51 PM CDT Yanni Garcia MD LAB BLOOD ORDERABLES Final Result [facility] Department [place] [address] * Lipase (10/31/2024 5:42 PM CDT) Pathologist [facility] Lipase 41 10 - 99 Units/L Blood Venous blood specimen / Unknown 10/31/2024 5:42 PM CDT 10/31/2024 5:51 PM CDT Yanni Garcia MD LAB BLOOD ORDERABLES Final Result [facility] Department [place] [address] * (ABNORMAL) Comprehensive metabolic panel (10/31/2024 5:42 PM CDT) Sodium 142 135 - 145 mmol/L Potassium, pl 4.2 3.3 - 4.9 mmol/L [facility] Chloride 105 97 - 110 mmol/L [facility] CO2 24 22 - 32 mmol/L [facility] Anion gap 13 2 - 15 mmol/L [facility] BUN 9 6 - 25 mg/dL [facility] Creatinine 0.65 0.60 - 1.10 mg/dL [facility] Glucose 84 70 - 199 mg/dL [facility] Comment: Interpretive Data Fasting glucose >/= 126 [...] 2022. Calcium 10.3 8.5 - 10.3 mg/dL [facility] Bilirubin, total 0.3 0.1 - 1.2 mg/dL [facility] Protein, pl 8.3 6.5 - 8.5 g/dL [facility] Albumin 4.7 3.5 - 5.0 g/dL [facility] Alk phos 105 40 - 130 Units/L [facility] ALT 68(H) 7 - 45 Units/L [facility] AST 48(H) 10 - 45 Units/L [facility] Blood Venous blood specimen / Unknown 10/31/2024 5:42 PM CDT 10/31/2024 5:51 PM CDT us Yanni Garcia MD LAB BLOOD ORDERABLES Final Result Performing Organization Address [facility]/ZIP Co de Phone Number CHARLEEN SINGH [facility] Department [place] [address] * ECG 12-LEAD (10/31/2024 4:30 PM CDT) [...] in the ED Yanni Garcia MD 10/31/24 [id number] us Yanni Garcia MD ECG ORDERABLES Final Resul t MUSE [facility] BJC from Last 3 Months Insurance IDPA [facility] CHOICE [facility] IDPA [employer] Advance Directives For more information, please contact: [phone] * Full Code (Latest Code Status on File) Date Activated Date Inactivated Comments 08/15/2022 3:10 PM 08/18/2022 6:09 PM Care Teams Claims Adjuster Relationship Specialty Start Date End Date Lucas Carter DO PCP - General Internal Medicine 08/15/22
--- OUTSIDE RECORDS SUMMARY | 2024-11-23 17:17 | XMS_ITS | Referral Summary ---
Author Organization [facility] Address [address] [place] [address] Care Team Providers Care Chief Medical Physicist Name Role Phone Lucas Carter DO Primary Care Provider [phone]- [phone] Encounters Date Type Department Care Team Description 10/31/2024 4:48 PM CDT - 10/31/2024 10:51 PM CDT Emergency [facility] Emergency Department [address] [place] [address] Yanni Garcia MD Flank pain (Primary Dx) Discharge Disposition: Discharge to home or self care from Last 3 Months Allergies Active Allergy Reactions Criticality Noted Date Comments Hydralazine Headache,Vomiting Low 01/21/2024 Ketorolac Hives,Itching Medium 10/17/2017 Tramadol Hives,Urticaria Medium 08/27/2016 Medications omeprazole (PriLOSEC) 20 mg capsuleIndication s:Treatment of Non-Bleeding Gastric Disorder Take 1 capsule (20 mg total) by mouth folder machine 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 Active MULTIVIT-MINERALS /FERROUS FUM (MULTI VITAMIN ORAL)Indications: health Take 1 tablet by mouth folder machine 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 Active ondansetron ODT (ZOFRAN-ODT) 4 [...] 1 tablet (25 mg total) by mouth folder machine 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 Active nebivoloL (BYSTOLIC) 10 mg [...] on file Legal Sex Female 9:06 PM PRESCHOOL ADVISER Gender Identity Female 10/01/2023 8:44 AM PRESCHOOL ADVISER Sexual Orientation Straight 10/01/2023 8: 44 AM PRESCHOOL ADVISER Last Filed Vital Signs Vital Sign Reading [...] cm (5' 3 ) 06/29/2024 7:50 AM PRESCHOOL ADVISER Body Mass Index 32.57 06/29/2024 7:50 AM PRESCHOOL ADVISER Plan of Treatment Not on file Goals [...] on stairs Contact your local community or [facility] for information on exercise, fall prevention programs, or options for improving home safety. Medical Devices Implanted Type Area Architect Intern Device Identifier Shelf Expiration Date Model / [...] POCT hCG, urine (10/31/2024 6:32 PM CDT) Pathologist [facility] HCG, ur, POC Negative Negative Lot Number [id number] QC Backgroud Clear Acceptable QC Control Line Acceptable Urine 10/31/2024 6:32 PM CDT Yanni Garcia MD POINT OF CARE TEST ORDERABL ES Final Result * eGFR (10/31/2024 5:42 PM CDT) Pathologist [facility] eGFR >90 >=60 mL/min/1. 73 m2 Comment: [...] MD LAB BLOOD ORDERABLES Final R esult [facility] One [facility] Department [place] [address] * (ABNORMAL) Differential, auto (10/31/2024 5:42 PM CDT) Neutrophil abs 5.6 1.5 - 6.5 K/cumm Imm gran abs 0.0 0.0 - 0.1 K/cumm [facility] Lymphocyte abs 2.3 0.8 - 3.3 K/cumm [facility] Monocyte abs 0.9(H) 0.2 - 0.8 K/cumm [facility] Eosinophil abs 0.1 0.0 - 0.5 K/cumm [facility] Basophil abs 0.1 0.0 - 0.1 K/cumm [facility] Neutrophil pct 62.4 % [facility] Comment: Interpretive Data Percent cell count reference ranges are not reported, since discordance with absolute values may lead to misinterpretation of CBC data. Current Interpretive Data was last revised on 2017. Imm gran pct 0.3 % [facility] Comment: Interpretive Data Percent cell count reference ranges are not reported, since discordance with absolute values may lead to misinterpretation of CBC data. Current Interpretive Data was last revised on 2017. Lymphocyte pct 25.2 % [facility] Comment: Interpretive Data Percent cell count reference ranges are not reported, since discordance with absolute values may lead to misinterpretation of CBC data. Current Interpretive Data was last revised on 2017. Monocyte pct 10.0 % [facility] Comment: Interpretive Data Percent cell count reference ranges are not reported, since discordance with absolute values may lead to misinterpretation of CBC data. Current Interpretive Data was last revised on 2017. Eosinophil pct 1.5 % [facility] Comment: Interpretive Data Percent cell count reference ranges are not reported, since discordance with absolute values may lead to misinterpretation of CBC data. Current Interpretive Data was last revised on 2017. Basophil pct 0.6 % [facility] Comment: Interpretive Data Percent cell count reference ranges are not reported, since discordance with absolute values may lead to misinterpretation of CBC data. Current Interpretive Data was last revised on 2017. Blood 10/31/2024 5:42 PM CDT 10/31/2024 5:51 PM CDT us Severo Mckeon MD LAB BLOOD ORDERABLES Final R esult [facility] One [facility] Department [place] [address] * Urinalysis reflex to microscopic and culture Urine (10/31/2024 5:42 PM CDT) Color, ur Straw Yellow Clarity, ur Clear Clear [facility] Specific gravity, ur 1.011 1.003 - 1.030 [facility] pH, urine 5.5 [facility] Comment: Interpretive Data U rine pH is affected by diet, medications, systemic acid-base disturbances, and renal tubular function. pH may affect urinary stone formation. For example, urine pH below 6.0 may help reduce the tendency for calcium phosphate stones and pH greater than 6.0 may reduce the tendency for uric acid stone formation. Source: [facility] Current Interpretive Data was last revised on 2017 Protein, ur ql Negative Negative [facility] Glucose, ur ql Negative Negative [facility] Ketones, ur Negative Negative [facility] Bilirubin, ur Negative Negative [facility] Blood, ur Negative Negative [facility] Urobilinogen, ur <2.0 <2.0 mg/dL [facility] Nitrite, ur Negative Negative [facility] Leukocyte esterase, ur Negative Negative [facility] UA reflex comment Reflex conditions for microscopic UA and culture not met. [facility] Urine 10/31/2024 5:42 PM CDT 10/31/2024 5:49 PM CDT us Minda Gurrola MD LAB MICROBIOLOGY - GENER AL ORDERABLES Final Result [facility] Department [place] [address] * (ABNORMAL) CBC with auto differential (10/31/2024 5:42 PM CDT) WBC 8.9 3.8 - 9.9 K/cumm Hgb 16.1(H) 11.9 - 15.5 g/dL [facility] Hct 45.8(H) 35.6 - 45.5 % [facility] Plt 319 150 - 400 K/cumm [facility] MPV 9.2 9.1 - 12.3 fL [facility] RBC 5.35(H) 3.90 - 5.20 M/cumm [facility] MCV 85.6 81.3 - 96.4 fL [facility] MCH 30.1 27.1 - 33.3 pg [facility] MCHC 35.2 32.3 - 35.7 g/dL [facility] RDW CV 12.5 11.1 - 14.9 % [facility] RDW SD 38.8 35.7 - 48.1 fL [facility] NRBC abs 0.00 0.00 - 0.01 K/cumm [facility] Blood Venous blood specimen / Unknown 10/31/2024 5:42 PM CDT 10/31/2024 5:51 PM CDT us Yanni Garcia MD LAB BLOOD ORDERABLES Final Result [facility] Department [place] [address] * Lipase (10/31/2024 5:42 PM CDT) Lipase 41 10 - 99 Units/L Blood Venous blood specimen / Unknown 10/31/2024 5:42 PM CDT 10/31/2024 5:51 PM CDT us Yanni Garcia MD LAB BLOOD ORDERABLES Final Result [facility] One [facility] Department [place] [address] * (ABNORMAL) Comprehensive metabolic panel (10/31/2024 5:42 PM CDT) Pathologist [facility] Sodium 142 135 - 145 mmol/L Potassium, pl 4.2 3.3 - 4.9 mmol/L [facility] Chloride 105 97 - 110 mmol/L [facility] CO2 24 22 - 32 mmol/L [facility] Anion gap 13 2 - 15 mmol/L [facility] BUN 9 6 - 25 mg/dL [facility] Creatinine 0.65 0.60 - 1.10 mg/dL [facility] Glucose 84 70 - 199 mg/dL [facility] Comment: Interpretive Data Fasting glucose [...] Calcium 10.3 8.5 - 10.3 mg/dL [facility] Bilirubin, total 0.3 0.1 - 1.2 mg/dL [facility] Protein, pl 8.3 6.5 - 8.5 g/dL [facility] Albumin 4.7 3.5 - 5.0 g/dL [facility] Alk phos 105 40 - 130 Units/L [facility] ALT 68(H) 7 - 45 Units/L [facility] AST 48(H) 10 - 45 Units/L [facility] Blood Venous blood specimen / Unknown 10/31/2024 5:42 PM CDT 10/31/2024 5:51 PM CDT Yanni Garcia MD LAB BLOOD ORDERABLES Final Result [facility] Department [place] [address] * ECG 12-LEAD (10/31/2024 4:30 PM CDT) [...] Garcia MD ECG ORDERABLES Final Resul t [facility] from Last 3 Months Insurance IDPA [facility] H[facility]PPO Address: [address] [address] [place] [address] [facility] IDPA IDPA Advance Directives For more information, please contact: [phone] * Full Code (Latest Code Status on File) Date Activated Date Inactivated Comments 08/15/2022 3:10 PM 08/18/2022 6:09 PM Care Teams Chief Medical Physicist Relationship Specialty Start Date End Date Lucas Carter DO PCP - General Internal Medicine 08/15/22
--- OUTSIDE RECORDS SUMMARY | 2024-11-23 17:17 | XMS_ITS | Clinical Summary ---
Author Organization [facility] Address [address] [place] [address] Phone Care Team Providers Care Mastic Worker Name Role Phone Unavailable Primary Care [...] Care Team Description 11/13/2024 Travel 11/13/2024 Telephone [facility] [address] [place] [address] Carlyle Calderon MD 11/12/2024 Telephone [facility] [address] [place] [address] Carlyle Calderon MD from Last [...]
[2024-11-23 18:05] VITALS: BP 132/80; PULSE 82; RESP 17; O2SAT 100
== END 2024-11-23 18:06 | disposition home or self-care (01) ==
PROVIDERS: Emergency Provider Emergency Medicine; PCP Internal Medicine
DX: N12 Tubulo-interstitial nephritis, not specified as acute or chronic (principal); I10 Essential (primary) hypertension; E66.9 Obesity, unspecified; Z68.33 Body mass index [BMI] 33.0-33.9, adult; G47.53 Recurrent isolated sleep paralysis; K21.9 Gastro-esophageal reflux disease without esophagitis; F17.210 Nicotine dependence, cigarettes, uncomplicated; Z87.442 Personal history of urinary calculi; Z90.49 Acquired absence of other specified parts of digestive tract; Z90.710 Acquired absence of both cervix and uterus; K76.0 Fatty (change of) liver, not elsewhere classified; N20.0 Calculus of kidney
CPT/HCPCS: 36415; 74176; 80053; 81001; 85025; 87086; 87186; 99284; A9270; J1741

== ENCOUNTER 2024-11-25 20:15 | Inpatient (IN) | payer OTHER, SELFPAY ==
--- NOTE | ~2024-11-25 | CT_ITS ---
CT abdomen pelvis wo con Ordering provider: Nubia Gomez PA-C History: 44 years Female with . L flank pain, uti, hx stones . Comparison: None. Technique: CT abdomen and pelvis without IV and without oral contrast. Automated exposure control and iterative reconstruction technique were employed. The dose-length product was 278.44 mGy-cm. Findings: VISUALIZED LOWER CHEST: Normal. UPPER ABDOMINAL ORGANS: Liver: Fat infiltration. Hepatomegaly. Gallbladder: Status post cholecystectomy. Spleen: Normal. Stomach/duodenum: Normal. Pancreas: Normal. Adrenals: Normal. Kidneys: Tiny stone in the right kidney upper pole. Tiny stone in the left kidney lower pole. PELVIC ORGANS: The bladder is underfilled. Cyst in the left ovary measuring 3.2 cm. BOWEL AND MESENTERY: Colon: No evidence of diverticulitis. Normal appendix. Small Bowel: Normal. No obstruction. Peritoneum/mesentery: No free air or free fluid. No mesenteric lymphadenopathy. RETROPERITONEUM: Mild atheromatous disease of the abdominal aorta. No retroperitoneal lymphadenopat hy. MUSCULOSKELETAL: Superficial soft tissues: The superficial soft tissues are normal. Bones: Age appropriate degenerative changes of the spine. Bilateral sacroiliacs. IMPRESSION: 1. Bilateral kidney stones. 2. Hepatomegaly with fat infiltration. 3. Left ovarian cyst. Reviewed, dictated and finalized at location A.
--- OUTSIDE RECORDS SUMMARY | 2024-11-25 20:18 | XMS_ITS | Referral Summary ---
Author Organization [facility] Address [address] [place] [address] Care Team Providers Care Metals Analyst Name Role Phone Lucas Carter DO Primary Care Provider +1- [phone] Encounters Date Type Department Care Team Description 10/31/2024 4:48 PM CDT - 10/31/2024 10:51 PM CDT Emergency [facility] Emergency Department [address] [place] [address] Yanni Garcia MD Flank pain (Primary Dx) Discharge Disposition: Discharge to home or self care from Last 3 Months Allergies Active Allergy Reactions Criticality Noted Date Comments Hydralazine Headache,Vomiting Low 01/21/2024 Ketorolac Hives,Itching Medium 10/17/2017 Tramadol Hives,Urticaria Medium 08/27/2016 Medications omeprazole (PriLOSEC) 20 mg capsuleIndication s:Treatment of Non-Bleeding Gastric Disorder Take 1 capsule (20 mg total) by mouth energy projects lead 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 Active MULTIVIT-MINERALS /FERROUS FUM (MULTI VITAMIN ORAL)Indications: health Take 1 tablet by mouth energy projects lead 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 Active ondansetron ODT (ZOFRAN-ODT) 4 [...] 1 tablet (25 mg total) by mouth energy projects lead 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 Active nebivoloL (BYSTOLIC) 10 mg [...] SPASMS 90 tablet 1 11/24/19 25 Active meloxicam (MOBIC) 15 mg tablet TAKE 1 TABLET(15 MG) BY MOUTH DAILY 30 tablet 11/24/19 25 Active cyclobenzaprine (FLEXERIL) 10 mg [...] on file Legal Sex Female 9:06 PM RETURN TO FACTORY CLERK Gender Identity Female 10/01/2023 8:44 AM RETURN TO FACTORY CLERK Sexual Orientation Straight 10/01/2023 8: 44 AM RETURN TO FACTORY CLERK Last Filed Vital Signs Vital Sign Reading [...] cm (5' 3 ) 06/29/2024 7:50 AM RETURN TO FACTORY CLERK Body Mass Index 32.57 06/29/2024 7:50 AM RETURN TO FACTORY CLERK Plan of Treatment Not on file Goals [...] on stairs Contact your local community or [facility] for information on exercise, fall prevention programs, or options for improving home safety. Medical Devices Implanted Type Area Hearing Aid Repair Technician Device Identifier Shelf Expiration Date [...] POCT hCG, urine (10/31/2024 6:32 PM CDT) [facility] HCG, ur, POC Negative Negative Lot Number [id number] QC Backgroud Clear Acceptable QC Control Line Acceptable Urine 10/31/2024 6:32 PM CDT Yanni Garcia MD POINT OF CARE TEST ORDERABL ES Final Result * eGFR (10/31/2024 5:42 PM CDT) [facility] eGFR >90 >=60 mL/min/1. 73 m2 Comment: [...] LAB BLOOD ORDERABLES Final R esult [facility] One [facility] Department [place] [address] * (ABNORMAL) Differential, auto (10/31/2024 5:42 PM CDT) Neutrophil abs 5.6 1.5 - 6.5 K/cumm Imm gran abs 0.0 0.0 - 0.1 K/cumm [facility] Lymphocyte abs 2.3 0.8 - 3.3 K[facility] Monocyte abs 0.9(H) 0.2 - 0.8 K/cumm [facility] Eosinophil abs 0.1 0.0 - 0.5 K/cumm [facility] Basophil abs 0.1 0.0 - 0.1 K/cumm [facility] Neutrophil pct 62.4 % [facility] Comment: Interpretive Data Percent cell count reference ranges are not reported, since discordance with absolute values may lead to misinterpretation of CBC data. Current Interpretive Data was last revised on 2017. Imm gran pct 0.3 % [facility] Comment: Interpretive Data Percent cell count reference ranges are not reported, since discordance with absolute values may lead to misinterpretation of CBC data. Current Interpretive Data was last revised on 2017. Lymphocyte pct 25.2 % [facility] Comment: Interpretive Data Percent cell count reference ranges are not reported, since discordance with absolute values may lead to misinterpretation of CBC data. Current Interpretive Data was last revised on 2017. Monocyte pct 10.0 % [facility] Comment: Interpretive Data Percent cell count reference ranges are not reported, since discordance with absolute values may lead to misinterpretation of CBC data. Current Interpretive Data was last revised on 2017. Eosinophil pct 1.5 % [facility] Comment: Interpretive Data Percent cell count reference ranges are not reported, since discordance with absolute values may lead to misinterpretation of CBC data. Current Interpretive Data was last revised on 2017. Basophil pct 0.6 % [facility] Comment: Interpretive Data Percent cell count reference ranges are not reported, since discordance with absolute values may lead to misinterpretation of CBC data. Current Interpretive Data was last revised on 2017. Blood 10/31/2024 5:42 PM CDT 10/31/2024 5:51 PM CDT us Severo Mckeon MD LAB BLOOD ORDERABLES Final R esult [facility] One [facility] Department [place] [address] * Urinalysis reflex to microscopic and culture Urine (10/31/2024 5:42 PM CDT) Color, ur Straw Yellow Clarity, ur Clear Clear [facility] Specific gravity, ur 1.011 1.003 - 1.030 [facility] pH, urine 5.5 [facility] Comment: Interpretive Data U rine pH is affected by diet, medications, systemic acid-base disturbances, and renal tubular function. pH may affect urinary stone formation. For example, urine pH below 6.0 may help reduce the tendency for calcium phosphate stones and pH greater than 6.0 may reduce the tendency for uric acid stone formation. Source: [facility] [employer] Current Interpretive Data was last revised on 2017 Protein, ur ql Negative Negative [facility] Glucose, ur ql Negative Negative [facility] Ketones, ur Negative Negative [facility] Bilirubin, ur Negative Negative [facility] Blood, ur Negative Negative [facility] Urobilinogen, ur <2.0 <2.0 mg/dL [facility] Nitrite, ur Negative Negative [facility] Leukocyte esterase, ur Negative Negative [facility] UA reflex comment Reflex conditions for microscopic UA and culture not met. [facility] Urine 10/31/2024 5:42 PM CDT 10/31/2024 5:49 PM CDT Minda Gurrola MD LAB MICROBIOLOGY - GENER AL ORDERABLES Final Result [facility] Department [place] [address] * (ABNORMAL) CBC with auto differential (10/31/2024 5:42 PM CDT) WBC 8.9 3.8 - 9.9 K/cumm Hgb 16.1(H) 11.9 - 15.5 g/dL [facility] Hct 45.8(H) 35.6 - 45.5 % [facility] Plt 319 150 - 400 K/cumm [facility] MPV 9.2 9.1 - 12.3 fL [facility] RBC 5.35(H) 3.90 - 5.20 M/cumm [facility] MCV 85.6 81.3 - 96.4 fL [facility] MCH 30.1 27.1 - 33.3 pg [facility] MCHC 35.2 32.3 - 35.7 g/dL [facility] RDW CV 12.5 11.1 - 14.9 % [facility] RDW SD 38.8 35.7 - 48.1 fL [facility] NRBC abs 0.00 0.00 - 0.01 K/cumm [facility] Blood Venous blood specimen / Unknown 10/31/2024 5:42 PM CDT 10/31/2024 5:51 PM CDT us Yanni Garcia MD LAB BLOOD ORDERABLES Final Result [facility] Department [place] [address] * Lipase (10/31/2024 5:42 PM CDT) Lipase 41 10 - 99 Units/L Blood Venous blood specimen / Unknown 10/31/2024 5:42 PM CDT 10/31/2024 5:51 PM CDT us Yanni Garcia MD LAB BLOOD ORDERABLES Final Result [facility] One [facility] Department [place] [address] * (ABNORMAL) Comprehensive metabolic panel (10/31/2024 5:42 PM CDT) Pathologist [facility] Sodium 142 135 - 145 mmol/L Potassium, pl 4.2 3.3 - 4.9 mmol/L [facility] Chloride 105 97 - 110 mmol/L [facility] CO2 24 22 - 32 mmol/L [facility] Anion gap 13 2 - 15 mmol/L [facility] BUN 9 6 - 25 mg/dL [facility] Creatinine 0.65 0.60 - 1.10 mg/dL [facility] Glucose 84 70 - 199 mg/dL [facility] Comment: Interpretive Data Fasting glucose >/= [...] Calcium 10.3 8.5 - 10.3 mg/dL [facility] Bilirubin, total 0.3 0.1 - 1.2 mg/dL [facility] Protein, pl 8.3 6.5 - 8.5 g/dL [facility] Albumin 4.7 3.5 - 5.0 g/dL [facility] Alk phos 105 40 - 130 Units/L [facility] ALT 68(H) 7 - 45 Units/L [facility] AST 48(H) 10 - 45 Units/L [facility] Blood Venous blood specimen / Unknown 10/31/2024 5:42 PM CDT 10/31/2024 5:51 PM CDT Yanni Garcia MD LAB BLOOD ORDERABLES Final Result [facility] One [facility] Department [place] [address] * ECG 12-LEAD (10/31/2024 4:30 PM CDT) Narrative [facility] - 10/31/2024 4:30 PM CDT Yanni Garcia MD 10/31/2024 4:32 PM ECG 12 lead Date/Time: 10/31/2024 4:30 PM Performed by: Yanni Garica MD Authorized by: Severo Mckeon MD Rate: [...] MD ECG ORDERABLES Final Resul t [facility] from Last 3 Months Insurance IDPA [facility] CHOICE PLUS [facility] IDPA IDPA Advance Directives For more information, please contact: [phone] * Full Code (Latest Code Status on File) Date Activated Date Inactivated Comments 08/15/2022 3:10 PM 08/18/2022 6:09 PM Care Teams Metals Analyst Relationship Specialty Start Date End Date Lucas Carter DO PCP - General Internal Medicine 08/15/22
--- OUTSIDE RECORDS SUMMARY | 2024-11-25 20:18 | XMS_ITS | Clinical Summary ---
Author Organization [facility] al Address [address] [place] [address] Care Team Providers Care Quality Intern Name Role Phone Lucas Carter DO Primary Care Provider [phone] Allergies Active Allergy Reactions Criticality Noted Date Comments Hydralazine Headache,Vomiting Low 01/21/2024 Ketorolac Hives,Itching Medium 10/17/2017 Tramadol Hives,Urticaria Medium 08/27/2016 Medications omeprazole (PriLOSEC) 20 mg capsuleIndication s:Treatment of Non-Bleeding Gastric Disorder Take 1 capsule (20 mg total) by mouth early childhood services coordinator 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 Active MULTIVIT-MINERALS /FERROUS FUM (MULTI VITAMIN ORAL)Indications: health Take 1 tablet by mouth early childhood services coordinator 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 Active ondansetron ODT (ZOFRAN-ODT) [...] (25 mg total) by mouth early childhood services coordinator before breakfast Active nebivoloL (BYSTOLIC) 10 [...] CDT - 10/31/2024 10:51 PM CDT Emergency [facility] Emergency Department [address] [place] [address] Yanni Garcia MD Flank pain (Primary Dx) [...] file Legal Sex Female 9:06 PM MEDICAL CLAIMS ANALYST Gender Identity Female 10/01/2023 8:44 AM MEDICAL CLAIMS ANALYST Sexual Orientation Straight 10/01/2023 8: 44 AM MEDICAL CLAIMS ANALYST Obstetrics History Para Term AB IAB SAB [...] cm (5' 3 ) 06/29/2024 7:50 AM MEDICAL CLAIMS ANALYST Body Mass Index 32.57 06/29/2024 7:50 AM MEDICAL CLAIMS ANALYST Plan of Treatment Health Maintenance Due Date [...] on stairs Contact your local community or [facility] for information on exercise, fall prevention programs, or options for improving home safety. Medical Devices Implanted Type Area County Administrator Device Identifier Shelf Expiration Date Model / [...] hCG, urine (10/31/2024 6:32 PM CDT) Pathologist [facility] HCG, ur, POC Negative Negative Lot Number [id number] QC Backgroud Clear Acceptable QC Control Line Acceptable Urine 10/31/2024 6:32 PM CDT Yanni Garcia MD POINT OF CARE TEST ORDERABL ES Final Result * eGFR (10/31/2024 5:42 PM CDT) Pathologist [facility] eGFR >90 >=60 mL/min/1. 73 m2 Comment: [...] MD LAB BLOOD ORDERABLES Final R esult [facility] One [facility] Department [place] [address] * (ABNORMAL) Differential, auto (10/31/2024 5:42 PM CDT) Neutrophil abs 5.6 1.5 - 6.5 K/cumm Imm gran abs 0.0 0.0 - 0.1 K/cumm [facility] Lymphocyte abs 2.3 0.8 - 3.3 K/cumm [facility] Monocyte abs 0.9(H) 0.2 - 0.8 K/cumm [facility] Eosinophil abs 0.1 0.0 - 0.5 K/cumm [facility] Basophil abs 0.1 0.0 - 0.1 K/cumm [facility] Neutrophil pct 62.4 % [facility] Comment: Interpretive Data Percent cell count reference ranges are not reported, since discordance with absolute values may lead to misinterpretation of CBC data. Current Interpretive Data was last revised on 2017. Imm gran pct 0.3 % [facility] Comment: Interpretive Data Percent cell count reference ranges are not reported, since discordance with absolute values may lead to misinterpretation of CBC data. Current Interpretive Data was last revised on 2017. Lymphocyte pct 25.2 % [facility] Comment: Interpretive Data Percent cell count reference ranges are not reported, since discordance with absolute values may lead to misinterpretation of CBC data. Current Interpretive Data was last revised on 2017. Monocyte pct 10.0 % [facility] Comment: Interpretive Data Percent cell count reference ranges are not reported, since discordance with absolute values may lead to misinterpretation of CBC data. Current Interpretive Data was last revised on 2017. Eosinophil pct 1.5 % [facility] Comment: Interpretive Data Percent cell count reference ranges are not reported, since discordance with absolute values may lead to misinterpretation of CBC data. Current Interpretive Data was last revised on 2017. Basophil pct 0.6 % [facility] Comment: Interpretive Data Percent cell count reference ranges are not reported, since discordance with absolute values may lead to misinterpretation of CBC data. Current Interpretive Data was last revised on 2017. Blood 10/31/2024 5:42 PM CDT 10/31/2024 5:51 PM CDT us Severo Mckeon MD LAB BLOOD ORDERABLES Final R esult [facility] One [facility] Department [place] [address] * Urinalysis reflex to microscopic and culture Urine (10/31/2024 5:42 PM CDT) Color, ur Straw Yellow Clarity, ur Clear Clear [facility] Specific gravity, ur 1.011 1.003 - 1.030 [facility] pH, urine 5.5 [facility] Comment: Interpretive Data U rine pH is affected by diet, medications, systemic acid-base disturbances, and renal tubular function. pH may affect urinary stone formation. For example, urine pH below 6.0 may help reduce the tendency for calcium phosphate stones and pH greater than 6.0 may reduce the tendency for uric acid stone formation. Source: [facility] [employer] Current Interpretive Data was last revised on 2017 Protein, ur ql Negative Negative [facility] Glucose, ur ql Negative Negative [facility] Ketones, ur Negative Negative [facility] Bilirubin, ur Negative Negative [facility] Blood, ur Negative Negative [facility] Urobilinogen, ur <2.0 <2.0 mg/dL [facility] Nitrite, ur Negative Negative [facility] Leukocyte esterase, ur Negative Negative [facility] UA reflex comment Reflex conditions for microscopic UA and culture not met. [facility] Urine 10/31/2024 5:42 PM CDT 10/31/2024 5:49 PM CDT us Minda Gurrola MD LAB MICROBIOLOGY - GENER AL ORDERABLES Final Result [facility] Department [place] [address] * (ABNORMAL) CBC with auto differential (10/31/2024 5:42 PM CDT) WBC 8.9 3.8 - 9.9 K/cumm Hgb 16.1(H) 11.9 - 15.5 g/dL [facility] Hct 45.8(H) 35.6 - 45.5 % [facility] Plt 319 150 - 400 K/cumm [facility] MPV 9.2 9.1 - 12.3 fL [facility] RBC 5.35(H) 3.90 - 5.20 M/cumm [facility] MCV 85.6 81.3 - 96.4 fL [facility] MCH 30.1 27.1 - 33.3 pg [facility] MCHC 35.2 32.3 - 35.7 g/dL [facility] RDW CV 12.5 11.1 - 14.9 % [facility] RDW SD 38.8 35.7 - 48.1 fL [facility] NRBC abs 0.00 0.00 - 0.01 K/cumm [facility] Blood Venous blood specimen / Unknown 10/31/2024 5:42 PM CDT 10/31/2024 5:51 PM CDT us Yanni Garcia MD LAB BLOOD ORDERABLES Final Result [facility] Department [place] [address] * Lipase (10/31/2024 5:42 PM CDT) Pathologist [facility] Lipase 41 10 - 99 Units/L Blood Venous blood specimen / Unknown 10/31/2024 5:42 PM CDT 10/31/2024 5:51 PM CDT us Yanni Garcia MD LAB BLOOD ORDERABLES Final Result [facility] Department [place] [address] * (ABNORMAL) Comprehensive metabolic panel (10/31/2024 5:42 PM CDT) Sodium 142 135 - 145 mmol/L Potassium, pl 4.2 3.3 - 4.9 mmol/L [facility] Chloride 105 97 - 110 mmol/L [facility] CO2 24 22 - 32 mmol/L [facility] Anion gap 13 2 - 15 mmol/L [facility] BUN 9 6 - 25 mg/dL [facility] Creatinine 0.65 0.60 - 1.10 mg/dL [facility] Glucose 84 70 - 199 mg/dL [facility] Comment: Interpretive Data Fasting glucose >/= [...] 2022. Calcium 10.3 8.5 - 10.3 mg/dL [facility] Bilirubin, total 0.3 0.1 - 1.2 mg/dL [facility] Protein, pl 8.3 6.5 - 8.5 g/dL [facility] Albumin 4.7 3.5 - 5.0 g/dL [facility] Alk phos 105 40 - 130 Units/L [facility] ALT 68(H) 7 - 45 Units/L [facility] AST 48(H) 10 - 45 Units/L [facility] Blood Venous blood specimen / Unknown 10/31/2024 5:42 PM CDT 10/31/2024 5:51 PM CDT Yanni Garcia MD LAB BLOOD ORDERABLES Final Result [facility] Department [place] [address] * ECG 12-LEAD (10/31/2024 4:30 PM CDT) [...] MD ECG ORDERABLES Final Resul t [facility] from Last 3 Months Insurance IDPA [facility] CHOICE PLUS [facility] IDPA IDPA Advance Directives For more information, please contact: [phone] * Full Code (Latest Code Status on File) Date Activated Date Inactivated Comments 08/15/2022 3:10 PM 08/18/2022 6:09 PM Care Teams Quality Intern Relationship Specialty Start Date End Date Lucas Carter DO PCP - General Internal Medicine 08/15/22
--- OUTSIDE RECORDS SUMMARY | 2024-11-25 20:18 | XMS_ITS | Clinical Summary ---
Author Organization [facility] Address [address] [place] [address] Phone Care Team Providers Care Sheet Metal Apprentice Name Role Phone Unavailable Primary Care Provider [...] Care Team Description 11/13/2024 Travel 11/13/2024 Telephone [facility] [address] [place] [address] Carlyle Calderon MD 11/12/2024 Telephone [facility] UROLOGY [address] [place] [address] Carlyle Calderon MD from Last [...]
--- OUTSIDE RECORDS SUMMARY | 2024-11-25 20:18 | XMS_ITS | Clinical Summary ---
Author Organization [facility] Address [address] [place] [address] Care Team Providers Care Support Group Manager Name Role Phone Damian Sadler MD Primary Care Provider [phone] Source Comments [facility],non-owned Affiliates and Associated Physician Practices is amultiple site organization consisting of ambulatory clinics and hospital sitesin [place], [place], [place] and [place]. This disclosure is being madepursuant to the Care Everywhere program and may not contain all information available regarding this patient. Last updated 18.[facility] Allergies Active Allergy Reactions Criticality Noted Date [...] on file Legal Sex Female 11:41 AM HEALTHCARE REPRESENTATIVE Gender Identity Not on file Sexual Orientation [...] Resulting Agency Comment [facility] [address] [facility] [phone] us Nancy Cotto MD LAB - CHEMISTRY ORDERABLES Final Result [facility] INSURANCE BILL [address] [place] [address] * (ABNORMAL) COMPREHENSIVE METABOLIC PANEL (02/03/2024 1:03 AM [facility]) BUN 9 7 - 26 mg/dL 02/03/2024 1:45 AM [facility] Creatinine 0.64 0.56 - 0.96 mg/dL 02/03/2024 1:45 AM [facility] Sodium 139 136 - 145 mmol/L 02/03/2024 1:45 AM [facility] Potassium 3.4(L) 3.5 - 4.5 mmol/L 02/03/2024 1:45 AM [facility] Chloride 107 98 - 107 mmol/L 02/03/2024 1:45 AM [facility] CO2 21(L) 22 - 29 mmol/L 02/03/2024 1:45 AM [facility] Glucose 78 70 - 115 mg/dL 02/03/2024 1:45 AM [facility] Calcium 9.9 8.4 - 10.2 mg/dL 02/03/2024 1:45 AM [facility] Protein Total 7.7 6.0 - 8.3 g/dL 02/03/2024 1:45 AM [facility] Albumin 4.4 3.4 - 5.0 g/dL 02/03/2024 1:45 AM [facility] Bilirubin Total 0.4 0.2 - 1.2 mg/dL 02/03/2024 1:45 AM [facility] Alkaline Phosphatase 81 40 - 150 U/L 02/03/2024 1:45 AM [facility] ALT 58(H) 5 - 55 U/L 02/03/2024 1:45 AM [facility] AST 33 5 - 34 U/L 02/03/2024 1:45 AM [facility] Anion Gap 11 6 - 16 02/03/2024 1:45 AM [facility] BUN/Creatinine Ratio 14 7 - 23 02/03/2024 1:45 AM [facility] Osmolality Calculated 286 275 - 295 mOsm/kg 02/03/2024 1:45 AM [facility] Albumin/Globulin Ratio 1.3 1.1 - 2.3 02/03/2024 1:45 AM [facility] eGFR by CKD-EPI >90 >=90 mL/min/1.7 3 m2 02/03/2024 1:45 AM [facility] Blood BLOOD SPECIMEN / Unknown Venipuncture / Unknown 02/03/2024 1:03 AM CDT 02/03/2024 1:17 AM CDT Kaylee Reyes MD LAB - CHEMISTRY ORDERABLES Fi nal Result [facility] [address] [place] [address], [facility] [phone] from Last 3 Months or Most Recently Relevant to Health Maintenance Insurance [phone] (Work) [address] [place] [address] MEDICAID [place] SELF PAY NO INSURANCE Member Subscriber Plan / Payer (Ef fective for All Dates) Name:Tita Luke Member ID:Not on file Relation to Subscriber:Not on file Name:TITA LUKE Subscriber ID:Not on file (Home) Address: [address] [place] [id number] Payer ID:Not on file Group ID:Not on file Type:Self Pay Address: [facility] Care Teams Support Group Manager Relationship Specialty Start Date End Date Damian Sadler MD PCP - General Internal Medicine 07/04/16
--- OUTSIDE RECORDS SUMMARY | 2024-11-25 20:18 | XMS_ITS | CONTINUITY OF CARE DOCUMENT ---
Author Name sylviaisabelhugo Address Unknown Organization [facility] Address [address] [place] [address] Phone [phone] Care Team Providers Care Fruit Stuffer Name Role Phone William CURIEL, Herlinda Unavailable [phone] SHAWNEE CURIEL, NABIL Schmidt Unavailable [phone] INSURANCE PROVIDERS Payer name Policy type / Coverage type Bj red constitution party ID [employer] [employer] Medicaid [id number] [facility] [id number]
[2024-11-25 20:25] VITALS: BP 159/94; PULSE 82; RESP 14; TEMP 36.6; O2SAT 97
[2024-11-25 22:11] LABS: Add Urine Microscopic? YES; Appearance Urine Cloudy (Clear); Bacteria Urine 4+ /hpf; Bilirubin Urine Negative (Negative); Blood Urine 3+ (Negative); Color Urine Yellow (Yellow); Glucose Urine UA Negative (Negative); Ketones Urine Negative (Negative); Leukocyte Esterase Ur 2+ LEU/UL (Negative); Need Manual Microscopic Reviewed; Nitrate Urine Positive (Negative); Non Pathogenic Casts 0-2; Protein Urine 1+ mg/dL (Negative); RBC Urine 51-100 /hpf (0-2); Specific Grav Ur 1.021 (1.001-1.035); Squamous Epithelial Cell Urine Occasional /hpf (Few); Urobilinogen Urine 0.2 mg/dL (<2.0); WBC Urine >100 /hpf (0-3); pH Urine 5.5 (5.0-9.0)
--- OUTSIDE RECORDS SUMMARY | 2024-11-25 22:38 | XMS_ITS | CONTINUITY OF CARE DOCUMENT ---
Author Name sylviaisabelhugo Address Unknown Organization [facility] Address [address] [place] [address] Phone [phone] Care Team Providers Care Behavioral Interventionist Name Role Phone William CURIEL, Herlinda Unavailable SHAWNEE CURIEL, NABIL Schmidt Unavailable [phone] INSURANCE PROVIDERS Payer name Policy type / Coverage type Bj red democrat ID [employer] [employer] Medicaid [id number] [facility] [id number]
--- OUTSIDE RECORDS SUMMARY | 2024-11-25 22:38 | XMS_ITS | Clinical Summary ---
Author Organization [facility] Address [address] [place] [address] Phone Care Team Providers Care Outreach Liaison Name Role Phone Unavailable Primary Care Provider [...] Care Team Description 11/13/2024 Travel 11/13/2024 Telephone [facility] UR[facility] [address] [place] [address] Carlyle Calderon MD 11/12/2024 Telephone [facility] [address] [place] [address] Carlyle Calderon MD from Last [...]
--- OUTSIDE RECORDS SUMMARY | 2024-11-25 22:38 | XMS_ITS | Clinical Summary ---
Author Organization [facility] al Address [address] [place] [address] Care Team Providers Care Director Of Music Therapy Name Role Phone Lucas Carter DO Primary Care Provider [phone] Allergies Active Allergy Reactions Criticality Noted Date Comments Hydralazine Headache,Vomiting Low 01/21/2024 Ketorolac Hives,Itching Medium 10/17/2017 Tramadol Hives,Urticaria Medium 08/27/2016 Medications omeprazole (PriLOSEC) 20 mg capsuleIndication s:Treatment of Non-Bleeding Gastric Disorder Take 1 capsule (20 mg total) by mouth piece worker before breakfast Active MULTIVIT-MINERALS /FERROUS FUM (MULTI VITAMIN ORAL)Indications: health Take 1 tablet by mouth piece worker before breakfast Active ondansetron ODT (ZOFRAN-ODT) [...] 1 tablet (25 mg total) by mouth piece worker before breakfast Active nebivoloL (BYSTOLIC) 10 [...] CDT - 10/31/2024 10:51 PM CDT Emergency [facility] Emergency Department [address] [place] [address] Yanni Garcia MD Flank pain (Primary Dx) [...] on file Legal Sex Female 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 Medical Devices Implanted Type Area Bell Captain Device Identifier Shelf Expiration Date Model / [...] hCG, urine (10/31/2024 6:32 PM CDT) Pathologist [facility] HCG, ur, POC Negative Negative Lot Number [id number] QC Backgroud Clear Acceptable QC Control Line Acceptable Urine 10/31/2024 6:32 PM CDT Yanni Garcia MD POINT OF CARE TEST ORDERABL ES Final Result * eGFR (10/31/2024 5:42 PM CDT) Pathologist [facility] eGFR >90 >=60 mL/min/1. 73 m2 Comment: [...] MD LAB BLOOD ORDERABLES Final R esult [facility] One [facility] [place] [address] * (ABNORMAL) Differential, auto (10/31/2024 5:42 PM CDT) Neutrophil abs 5.6 1.5 - 6.5 K/cumm Imm gran abs 0.0 0.0 - 0.1 K/cumm [facility] Lymphocyte abs 2.3 0.8 - 3.3 K/cumm [facility] Monocyte abs 0.9(H) 0.2 - 0.8 K/cumm [facility] Eosinophil abs 0.1 0.0 - 0.5 K/cumm [facility] Basophil abs 0.1 0.0 - 0.1 K/cumm [facility] Neutrophil pct 62.4 % [facility] Comment: Interpretive Data Percent cell count reference ranges are not reported, since discordance with absolute values may lead to misinterpretation of CBC data. Current Interpretive Data was last revised on 2017. Imm gran pct 0.3 % [facility] Comment: Interpretive Data Percent cell count reference ranges are not reported, since discordance with absolute values may lead to misinterpretation of CBC data. Current Interpretive Data was last revised on 2017. Lymphocyte pct 25.2 % [facility] Comment: Interpretive Data Percent cell count reference ranges are not reported, since discordance with absolute values may lead to misinterpretation of CBC data. Current Interpretive Data was last revised on 2017. Monocyte pct 10.0 % [facility] Comment: Interpretive Data Percent cell count reference ranges are not reported, since discordance with absolute values may lead to misinterpretation of CBC data. Current Interpretive Data was last revised on 2017. Eosinophil pct 1.5 % [facility] Comment: Interpretive Data Percent cell count reference ranges are not reported, since discordance with absolute values may lead to misinterpretation of CBC data. Current Interpretive Data was last revised on 2017. Basophil pct 0.6 % [facility] Comment: Interpretive Data Percent cell count reference ranges are not reported, since discordance with absolute values may lead to misinterpretation of CBC data. Current Interpretive Data was last revised on 2017. Blood 10/31/2024 5:42 PM CDT 10/31/2024 5:51 PM CDT us Severo Mckeon MD LAB BLOOD ORDERABLES Final R esult [facility] One [facility] [place] [address] * Urinalysis reflex to microscopic and culture Urine (10/31/2024 5:42 PM CDT) Color, ur Straw Yellow Clarity, ur Clear Clear [facility] Specific gravity, ur 1.011 1.003 - 1.030 [facility] pH, urine 5.5 [facility] Comment: Interpretive Data U rine pH is affected by diet, medications, systemic acid-base disturbances, and renal tubular function. pH may affect urinary stone formation. For example, urine pH below 6.0 may help reduce the tendency for calcium phosphate stones and pH greater than 6.0 may reduce the tendency for uric acid stone formation. Source: [facility] Current Interpretive Data was last revised on 2017 Protein, ur ql Negative Negative [facility] Glucose, ur ql Negative Negative [facility] Ketones, ur Negative Negative [facility] Bilirubin, ur Negative Negative [facility] Blood, ur Negative Negative [facility] Urobilinogen, ur <2.0 <2.0 mg/dL [facility] Nitrite, ur Negative Negative [facility] Leukocyte esterase, ur Negative Negative [facility] UA reflex comment Reflex conditions for microscopic UA and culture not met. [facility] Urine 10/31/2024 5:42 PM CDT 10/31/2024 5:49 PM CDT us Minda Gurrola MD LAB MICROBIOLOGY - GENER AL ORDERABLES Final Result [facility] [place] [address] * (ABNORMAL) CBC with auto differential (10/31/2024 5:42 PM CDT) WBC 8.9 3.8 - 9.9 K/cumm Hgb 16.1(H) 11.9 - 15.5 g/dL [facility] Hct 45.8(H) 35.6 - 45.5 % [facility] Plt 319 150 - 400 K/cumm [facility] MPV 9.2 9.1 - 12.3 fL [facility] RBC 5.35(H) 3.90 - 5.20 M/cumm [facility] MCV 85.6 81.3 - 96.4 fL [facility] MCH 30.1 27.1 - 33.3 pg [facility] MCHC 35.2 32.3 - 35.7 g/dL [facility] RDW CV 12.5 11.1 - 14.9 % [facility] RDW SD 38.8 35.7 - 48.1 fL [facility] NRBC abs 0.00 0.00 - 0.01 K/cumm [facility] Blood Venous blood specimen / Unknown 10/31/2024 5:42 PM CDT 10/31/2024 5:51 PM CDT us Yanni Garcia MD LAB BLOOD ORDERABLES Final Result [facility] [place] [address] * Lipase (10/31/2024 5:42 PM CDT) Pathologist [facility] Lipase 41 10 - 99 Units/L Blood Venous blood specimen / Unknown 10/31/2024 5:42 PM CDT 10/31/2024 5:51 PM CDT us Yanni Garcia MD LAB BLOOD ORDERABLES Final Result [facility] [place] [address] * (ABNORMAL) Comprehensive metabolic panel (10/31/2024 5:42 PM CDT) Sodium 142 135 - 145 mmol/L Potassium, pl 4.2 3.3 - 4.9 mmol/L [facility] Chloride 105 97 - 110 mmol/L [facility] CO2 24 22 - 32 mmol/L [facility] Anion gap 13 2 - 15 mmol/L [facility] BUN 9 6 - 25 mg/dL [facility] Creatinine 0.65 0.60 - 1.10 mg/dL [facility] Glucose 84 70 - 199 mg/dL [facility] Comment: Interpretive Data Fasting [...] 2022. Calcium 10.3 8.5 - 10.3 mg/dL [facility] Bilirubin, total 0.3 0.1 - 1.2 mg/dL [facility] Protein, pl 8.3 6.5 - 8.5 g/dL [facility] Albumin 4.7 3.5 - 5.0 g/dL [facility] Alk phos 105 40 - 130 Units/L [facility] ALT 68(H) 7 - 45 Units/L [facility] AST 48(H) 10 - 45 Units/L [facility] Blood Venous blood specimen / Unknown 10/31/2024 5:42 PM CDT 10/31/2024 5:51 PM CDT Yanni Garcia MD LAB BLOOD ORDERABLES Final Result [facility] [place] [address] * ECG 12-LEAD (10/31/2024 4:30 PM CDT) [...] MD ECG ORDERABLES Final Resul t [facility] from Last 3 Months Insurance IDPA [facility] CHOICE PLUS [facility] IDPA IDPA Advance Directives For more information, please contact: [phone] * Full Code (Latest Code Status on File) Date Activated Date Inactivated Comments 08/15/2022 3:10 PM 08/18/2022 6:09 PM Care Teams Director Of Music Therapy Relationship Specialty Start Date End Date Lucas Carter DO PCP - General Internal Medicine 08/15/22
--- OUTSIDE RECORDS SUMMARY | 2024-11-25 22:38 | XMS_ITS | Clinical Summary ---
Author Organization [facility] Address [address] [place] [address] Care Team Providers Care Business Relationship Manager Name Role Phone Damian Sadler MD Primary Care Provider [phone] Source Comments [facility],non-owned Affiliates and Associated Physician Practices is amultiple site organization consisting of ambulatory clinics and hospital sitesin [place], [place], [place] and [place]. This disclosure is being madepursuant to the Care Everywhere program and may not contain all information available regarding this patient. 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 [facility] [phone] us Nancy Cotto MD LAB - CHEMISTRY ORDERABLES Final Result [facility] INSURANCE BILL [address] [place] [address] * (ABNORMAL) COMPREHENSIVE METABOLIC PANEL (02/03/2024 1:03 AM [facility]) BUN 9 7 - 26 mg/dL 02/03/2024 1:45 AM [facility] Creatinine 0.64 0.56 - 0.96 mg/dL 02/03/2024 1:45 AM [facility] Sodium 139 136 - 145 mmol/L 02/03/2024 1:45 AM [facility] Potassium 3.4(L) 3.5 - 4.5 mmol/L 02/03/2024 1:45 AM [facility] Chloride 107 98 - 107 mmol/L 02/03/2024 1:45 AM [facility] CO2 21(L) 22 - 29 mmol/L 02/03/2024 1:45 AM [facility] Glucose 78 70 - 115 mg/dL 02/03/2024 1:45 AM [facility] Calcium 9.9 8.4 - 10.2 mg/dL 02/03/2024 1:45 AM [facility] Protein Total 7.7 6.0 - 8.3 g/dL 02/03/2024 1:45 AM [facility] Albumin 4.4 3.4 - 5.0 g/dL 02/03/2024 1:45 AM [facility] Bilirubin Total 0.4 0.2 - 1.2 mg/dL 02/03/2024 1:45 AM [facility] Alkaline Phosphatase 81 40 - 150 U/L 02/03/2024 1:45 AM [facility] ALT 58(H) 5 - 55 U/L 02/03/2024 1:45 AM [facility] AST 33 5 - 34 U/L 02/03/2024 1:45 AM [facility] Anion Gap 11 6 - 16 02/03/2024 1:45 AM [facility] BUN/Creatinine Ratio 14 7 - 23 02/03/2024 1:45 AM [facility] Osmolality Calculated 286 275 - 295 mOsm/kg 02/03/2024 1:45 AM [facility] Albumin/Globulin Ratio 1.3 1.1 - 2.3 02/03/2024 1:45 AM T [facility] eGFR by CKD-EPI >90 >=90 mL/min/1.7 3 m2 02/03/2024 1:45 AM T [facility] Blood BLOOD SPECIMEN / Unknown Venipuncture / Unknown 02/03/2024 1:03 AM CDT 02/03/2024 1:17 AM CDT Kaylee Reyes MD LAB - CHEMISTRY ORDERABLES Fi nal Result [facility] [address] [place] [address], [facility] [phone] from Last 3 Months or Most Recently Relevant to Health Maintenance Insurance [phone] (Work) [address] [place] [id number] MEDICAID [place] SELF PAY NO INSURANCE Member Subscriber Plan / Payer (Ef fective for All Dates) Name:Tita Luke Member ID:Not on file Relation to Subscriber:Not on file Name:TITA LUKE Subscriber ID:Not on file (Home) Address: [address] [place] [id number] Payer ID:Not on file Group ID:Not on file Type:Self Pay Address: [facility] Care Teams Business Relationship Manager Relationship Specialty Start Date End Date Damian Sadler MD PCP - General Internal Medicine 07/04/16
--- OUTSIDE RECORDS SUMMARY | 2024-11-25 22:38 | XMS_ITS | Referral Summary ---
Author Organization [facility] Address [address] [place] [address] Care Team Providers Care Rehab Spec Name Role Phone Lucas Carter DO Primary Care Provider [phone] Encounters Date Type Department Care Team Description 10/31/2024 4:48 PM CDT - 10/31/2024 10:51 PM CDT Emergency [facility] Emergency Department [address] [place] [address] Yanni Garcia MD Flank pain (Primary Dx) Discharge Disposition: Discharge to home or self care from Last 3 Months Allergies Active Allergy Reactions Criticality Noted Date Comments Hydralazine Headache,Vomiting Low 01/21/2024 Ketorolac Hives,Itching Medium 10/17/2017 Tramadol Hives,Urticaria Medium 08/27/2016 Medications omeprazole (PriLOSEC) 20 mg capsuleIndication s:Treatment of Non-Bleeding Gastric Disorder Take 1 capsule (20 mg total) by mouth distributed energy systems consultant before breakfast Active MULTIVIT-MINERALS /FERROUS FUM (MULTI VITAMIN ORAL)Indications: health Take 1 tablet by mouth distributed energy systems consultant before breakfast Active ondansetron ODT (ZOFRAN-ODT) [...] 1 tablet (25 mg total) by mouth distributed energy systems consultant before breakfast Active nebivoloL (BYSTOLIC) 10 [...] on file 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 Medical Devices Implanted Type Area Level Vial Inspector And Tester Device Identifier Shelf Expiration Date Model / [...] POCT hCG, urine (10/31/2024 6:32 PM CDT) [facility] HCG, ur, POC Negative Negative Lot Number [id number] QC Backgroud Clear Acceptable QC Control Line Acceptable Urine 10/31/2024 6:32 PM CDT Yanni Garcia MD POINT OF CARE TEST ORDERABL ES Final Result * eGFR (10/31/2024 5:42 PM CDT) [facility] eGFR >90 >=60 mL/min/1. 73 m2 Comment: [...] MD LAB BLOOD ORDERABLES Final R esult [facility] Department [place] [address] * (ABNORMAL) Differential, auto (10/31/2024 5:42 PM CDT) Neutrophil abs 5.6 1.5 - 6.5 K/cumm Imm gran abs 0.0 0.0 - 0.1 K/cumm [facility] Lymphocyte abs 2.3 0.8 - 3.3 K/cumm [facility] Monocyte abs 0.9(H) 0.2 - 0.8 K/cumm [facility] Eosinophil abs 0.1 0.0 - 0.5 K/cumm [facility] Basophil abs 0.1 0.0 - 0.1 K/cumm [facility] Neutrophil pct 62.4 % [facility] Comment: Interpretive Data Percent cell count reference ranges are not reported, since discordance with absolute values may lead to misinterpretation of CBC data. Current Interpretive Data was last revised on 2017. Imm gran pct 0.3 % [facility] Comment: Interpretive Data Percent cell count reference ranges are not reported, since discordance with absolute values may lead to misinterpretation of CBC data. Current Interpretive Data was last revised on 2017. Lymphocyte pct 25.2 % [facility] Comment: Interpretive Data Percent cell count reference ranges are not reported, since discordance with absolute values may lead to misinterpretation of CBC data. Current Interpretive Data was last revised on 2017. Monocyte pct 10.0 % [facility] Comment: Interpretive Data Percent cell count reference ranges are not reported, since discordance with absolute values may lead to misinterpretation of CBC data. Current Interpretive Data was last revised on 2017. Eosinophil pct 1.5 % [facility] Comment: Interpretive Data Percent cell count reference ranges are not reported, since discordance with absolute values may lead to misinterpretation of CBC data. Current Interpretive Data was last revised on 2017. Basophil pct 0.6 % [facility] Comment: Interpretive Data Percent cell count reference ranges are not reported, since discordance with absolute values may lead to misinterpretation of CBC data. Current Interpretive Data was last revised on 2017. Blood 10/31/2024 5:42 PM CDT 10/31/2024 5:51 PM CDT us Severo Mckeon MD LAB BLOOD ORDERABLES Final R esult [facility] [place] [address] * Urinalysis reflex to microscopic and culture Urine (10/31/2024 5:42 PM CDT) Color, ur Straw Yellow Clarity, ur Clear Clear [facility] Specific gravity, ur 1.011 1.003 - 1.030 [facility] pH, urine 5.5 [facility] Comment: Interpretive Data U rine pH is affected by diet, medications, systemic acid-base disturbances, and renal tubular function. pH may affect urinary stone formation. For example, urine pH below 6.0 may help reduce the tendency for calcium phosphate stones and pH greater than 6.0 may reduce the tendency for uric acid stone formation. Source: [facility] [employer] Current Interpretive Data was last revised on 2017 Protein, ur ql Negative Negative [facility] Glucose, ur ql Negative Negative [facility] Ketones, ur Negative Negative [facility] Bilirubin, ur Negative Negative [facility] Blood, ur Negative Negative [facility] Urobilinogen, ur <2.0 <2.0 mg/dL [facility] Nitrite, ur Negative Negative [facility] Leukocyte esterase, ur Negative Negative [facility] UA reflex comment Reflex conditions for microscopic UA and culture not met. [facility] Urine 10/31/2024 5:42 PM CDT 10/31/2024 5:49 PM CDT Minda Gurrola MD LAB MICROBIOLOGY - GENER AL ORDERABLES Final Result [facility] Department [place] [address] * (ABNORMAL) CBC with auto differential (10/31/2024 5:42 PM CDT) WBC 8.9 3.8 - 9.9 K/cumm Hgb 16.1(H) 11.9 - 15.5 g/dL [facility] Hct 45.8(H) 35.6 - 45.5 % [facility] Plt 319 150 - 400 K/cumm [facility] MPV 9.2 9.1 - 12.3 fL [facility] RBC 5.35(H) 3.90 - 5.20 M/cumm [facility] MCV 85.6 81.3 - 96.4 fL [facility] MCH 30.1 27.1 - 33.3 pg [facility] MCHC 35.2 32.3 - 35.7 g/dL [facility] RDW CV 12.5 11.1 - 14.9 % [facility] RDW SD 38.8 35.7 - 48.1 fL [facility] NRBC abs 0.00 0.00 - 0.01 K/cumm [facility] Blood Venous blood specimen / Unknown 10/31/2024 5:42 PM CDT 10/31/2024 5:51 PM CDT us Yanni Garcia MD LAB BLOOD ORDERABLES Final Result [facility] Department [place] [address] * Lipase (10/31/2024 5:42 PM CDT) Lipase 41 10 - 99 Units/L Blood Venous blood specimen / Unknown 10/31/2024 5:42 PM CDT 10/31/2024 5:51 PM CDT us Yanni Garcia MD LAB BLOOD ORDERABLES Final Result [facility] [place] [address] * (ABNORMAL) Comprehensive metabolic panel (10/31/2024 5:42 PM CDT) Pathologist [facility] Sodium 142 135 - 145 mmol/L Potassium, pl 4.2 3.3 - 4.9 mmol/L [facility] Chloride 105 97 - 110 mmol/L [facility] CO2 24 22 - 32 mmol/L [facility] Anion gap 13 2 - 15 mmol/L [facility] BUN 9 6 - 25 mg/dL [facility] Creatinine 0.65 0.60 - 1.10 mg/dL [facility] Glucose 84 70 - 199 mg/dL [facility] [...] 2022. Calcium 10.3 8.5 - 10.3 mg/dL [facility] Bilirubin, total 0.3 0.1 - 1.2 mg/dL [facility] Protein, pl 8.3 6.5 - 8.5 g/dL [facility] Albumin 4.7 3.5 - 5.0 g/dL [facility] Alk phos 105 40 - 130 Units/L [facility] ALT 68(H) 7 - 45 Units/L [facility] AST 48(H) 10 - 45 Units/L [facility] Blood Venous blood specimen / Unknown 10/31/2024 5:42 PM CDT 10/31/2024 5:51 PM CDT Yanni Garcia MD LAB BLOOD ORDERABLES Final Result [facility] [place] [address] * ECG 12-LEAD (10/31/2024 4:30 PM CDT) [...] MD ECG ORDERABLES Final Resul t [facility] from Last 3 Months Insurance IDPA [facility] CHOICE PLUS [facility] IDPA IDPA Advance Directives For more information, please contact: [phone] * Full Code (Latest Code Status on File) Date Activated Date Inactivated Comments 08/15/2022 3:10 PM 08/18/2022 6:09 PM Care Teams Rehab Spec Relationship Specialty Start Date End Date Lucas Carter DO PCP - General Internal Medicine 08/15/22
[2024-11-25 23:01] LABS: Basophils Percent Auto 0.4 % (0.2-1.2); Eosinophils Absolute Auto 0.2 K/mm3 (0-0.3); Hematocrit 40.8 % (37.0-47.0); Hemoglobin 13.7 g/dL (12.0-15.0); Immature Granulocyte Absolute 0.02 K/mm3 (0.00-0.031); Immature Granulocyte Percent A 0.3 % (0-0.5); Lymphocytes Absolute Auto 2.06 K/mm3 (0.9-3.2); Mean Corpuscular HGB Conc 33.6 g/dl (32-36); Mean Corpuscular Hemoglobin 30.2 pg (26-34); Mean Corpuscular Volume 90.1 fl (80-100); Mean Platelet Volume 9.3 fl (7.4-10.4); Monocytes Absolute Auto 0.7 K/mm3 (0.1-0.6); Monocytes Percent Auto 9.3 % (2.6-8.5); Neutrophils Absolute Auto 4.7 K/mm3 (1.3-6.7); Platelet Count Result 225 k/mm3 (150-375); Red Blood Count 4.53 M/mm3 (4.2-5.4); Red Cell Distribution Width 13.1 % (11.5-14.5); White Blood Count 7.6 K/mm3 (4.5-10.0)
[2024-11-25 23:11] LABS: Anion Gap 10 mmol/L (4-12); Blood Urea Nitrogen 12 mg/dL (7-17); Calcium 8.9 mg/dL (8.4-10.2); Carbon Dioxide 23 mmol/L (22-30); Chloride 106 mmol/L (98-107); Estimated CRCL calculation 108 ml/min; Estimated Glomerular Filt Rate > 60; Glucose 83 mg/dL (65-110); Potassium 3.9 mmol/L (3.4-5.0); Sodium 139 mmol/L (137-145)
--- NOTE | 2024-11-25 23:35 | ED_ITS ---
HPI - Female Genitourinary General Chief complaint: Urogenital-Female <Nubia Gomez PA-C - Last Filed: 11/26/24 00:50> Stated complaint: Lt side bladder pain, N, high BP, chest lion <ASHA Velasquez Last Filed: 11/26/24 00:50> Time Seen by Provider: 11/25/24 21:46 <Nubia Gomez PA-C - Last Filed: 11/26/24 00:50> Source: patient and old records reviewed <ASHA Velasquez Last Filed: 11/26/24 00:50> Mode of arrival: ambulatory <ASHA Velasquez Last Filed: 11/26/24 00:50> Limitations: no limitations <ASHA Velasquez Last Filed: 11/26/24 00:50> History of Present Illness HPI Narrative: Patient is a 44-year-old female who presents the ED with report of left- sided flank pain. Patient has long history of kidney stones and urinary tract infections. She has had multiple procedures for her kidney stones over the past couple of months. Was seen in the ED here on Saturday, diagnosed with pyelonephritis. Started on ciprofloxacin. Had previously been on Keflex prior to that r/t having stent removed. Patient reports since Saturday, she has been having worsening pain throughout her left flank, worsening nausea, difficulty keeping down food and drink, chills. She is also now having contreras blood in her urine. Concerned she was passing another kidney stones. Per records, urine culture at that time grew back positive for E coli, multiple resistances including Cipro. Denies known fever. Follows w/ Dr. Gonzalez and Dr. Alejandro. <ASHA Velasquez Last Filed: 11/26/24 00:50> Related Data Home medications: Home Medications ?Medication ?Instructions ?Recorded ?Confirmed ?Last Taken ?Type multivitamin 1 tablet PO DAILY 04/04/22 11/26/24 11/13/24 09:00 History nebivolol 10 mg tablet (Bystolic) 10 mg PO DAILY 10/21/24 11/26/24 11/14/24 02:20 History 10 mg omeprazole 20 mg capsule,delayed 20 mg PO DAILY 11/23/24 11/26/24 Unknown History release tamsulosin 0.4 mg capsule 0.4 mg PO DAILY PRN urinary 11/26/24 11/26/24 Unknown History retention <Nubia Gomez PA-C - Last Filed: 11/26/24 00:50> Allergies/Adverse reactions: Allergies Allergy/AdvReac Type Severity Reaction Status Date / Time ketorolac (From Toradol) Allergy Headache,Rash, Verified 11/26/24 01:19 Swollen tongue tramadol AdvReac Mild VOMITING/HE Verified 11/26/24 01:19 ADACHE hydralazine AdvReac Headache Verified 11/26/24 01:19 <Nubia Gomez PA-C - Last Filed: 11/26/24 00:50> Review of Systems 2 Review of Systems: All systems reviewed & are unremarkable except as noted in HPI. <Nubia Gomez PA-C - Last Filed: 11/26/24 00:50> All systems reviewed & are unremarkable except as noted in HPI and below < Nubia Gomez PA-C - Last Filed: 11/26/24 00:50> [facility] Past Medical History Medical History: Medical History Left ureteral stone Hypertension Gastroesophageal reflux disease Sleep paralysis, recurrent isolated Smoker Obesity Depression Multiple kidney stones Seasonal allergies <Nubia Gomez PA-C - Last Filed: 11/26/24 00:50> Surgical History Surgical History: Surgical History H/O ureteroscopy 10/21/24 on the right due to proximal ureteral stone; Dr Gonzalez History of laparoscopic cholecystectomy on 04/25/23 PDC History of tubal ligation History of endometrial ablation (2009) History of hysterectomy (2015) History of open reduction and internal fixation (ORIF) procedure (2012) Left elbow. History of section 2000, 2001, 2009 Status post cystoscopy with ureteral stent placement <Nubia Gomez PA-C - Last Filed: 11/26/24 00:50> Family History Family History: Family History Mother Diabetes mellitus Depression Alcoholism Father Hypertension Sibling Congenital heart disease Son Asthma Grandparent Diabetes mellitus Cerebrovascular accident <Nubia Gomez PA-C - Last Filed: 11/26/24 00:50> Social History Social History: Social History Social History: Surrogate medical decision maker: Bang Luke, spouse. Code status: Full code. Smoking packs per day: 0.5 Smoking cigarettes per day: 10.0 Years smoked: 32 Smoking pack-years: 16.00 Smoking status: Current every day smoker Tobacco type: cigarettes Second hand tobacco smoke exposure: Yes Alcohol intake: never Alcohol use details: Social alcohol use in moderation. Substance use: never Substance use type: does not use Do You Feel Safe in your Home?: Yes Lack of Transportation: No Lack of Food: Never True Current Housing: I Have Housing Concerned About Future Housing: No Difficulty Paying Gas/Electric Bills: No Difficulty Paying for Meds: No Currently Unemployed: No Education: High School Diploma/GED Difficulty w/ Childcare or Family Care: No Living arrangements: with family Spiritual care concerns: No <Nubia Gomez PA-C - Last Filed: 11/26/24 00:50> Exam 2 Narrative: GENERAL: Well appearing, obese with BMI of 31.9, non-toxic, in no acute distress. HEAD: Normocephalic, atraumatic. RESPIRATORY: Airway patent, respirations nonlabored. Clear to auscultation bilaterally, no rales, rhonchi, wheezing. CARDIOVASCULAR: Regular rate and rhythm without murmurs, rubs, or gallops. ABDOMINAL: Soft, minimal tenderness in left lower quadrant, nondistended. Normoactive BS. MUSCULOSKELETAL: Moves all extremities. No gross deformities. Mild tenderness palpation throughout left CVA region. SKIN: Warm, dry, normal color. NEURO: A&O X3. Speech clear. Cranial nerves II-XII grossly intact. Steady gait. No ataxic movements. PSYCHIATRIC: Appropriate mood and affect. Normal interaction. <HERBERT VelasquezC - Last Filed: 11/26/24 00:50> Course PROTECTION SPECIALIST/PA Physician Supervision For this patient encounter, I reviewed the PROTECTION SPECIALIST or PA documentation, treatment plan, and medical decision making and had [id number] time with this patient. I performed all aspects of the MDM as documented. <Rebekah Dillon MD - Last Filed: 11/26/24 04:25> Vital Signs Vital signs: Vital Signs Temperature 97.9 F 11/25/24 20:25 Pulse Rate 82 11/25/24 20:25 Respiratory Rate 14 11/25/24 20:25 Blood Pressure 159/94 H 11/25/24 20:25 Pulse Oximetry 97 11/25/24 20:25 Oxygen Delivery Room Air 11/25/24 20:25 Temperature 98 F 11/26/24 02:15 Pulse Rate 66 11/26/24 02:15 Respiratory Rate 16 11/26/24 02:15 Blood Pressure 108/67 11/26/24 04:22 Pulse Oximetry 99 11/26/24 02:15 Oxygen Delivery Room Air 11/25/24 20:25 <Nubia Gomez PA-C - Last Filed: 11/26/24 00:50> Vital Signs Temperature 97.9 F 11/25/24 20:25 Pulse Rate 82 11/25/24 20:25 Respiratory Rate 14 11/25/24 20:25 Blood Pressure 159/94 H 11/25/24 20:25 Pulse Oximetry 97 11/25/24 20:25 Oxygen Delivery Room Air 11/25/24 20:25 Temperature 98 F 11/26/24 02:15 Pulse Rate 66 11/26/24 02:15 Respiratory Rate 16 11/26/24 02:15 Blood Pressure 108/67 11/26/24 04:22 Pulse Oximetry 99 11/26/24 02:15 Oxygen Delivery Room Air 11/25/24 20:25 <Rebekah Dillon MD - Last Filed: 11/26/24 04:25> MDM - Female Genitourinary MDM Narrative Medical decision making narrative: Patient presented to ED with worsening left flank pain, long history of kidney stones and infections. Recently diagnosed with pyelonephritis 2 days ago, started on ciprofloxacin. Review of records show multi-drug resistant E coli on urine culture from 11/23. Vital signs are stable upon arrival today. Patient is afebrile. Laboratory studies are unremarkable. No leukocytosis. Stable H&H. Stable kidney function. Urine sample with positive nitrates, greater than 100 WBC, 4+ urine bacteria, progressively worsening from recent UA. CT of abdomen/pelvis does not show any actively passing ureteral stones at this time, does show bilateral renal stones. Patient will require IV antibiotics for infection. Will discuss with hospitalist. Discussed with Dr. Zheng, hospitalist, accepted patient for admission. Meropenem started in the ED. Patient in agreement with plan and need for admission. <Nubia Gomez PA-C - Last Filed: 11/26/24 00:50> Medical Records Attestation: I reviewed the patient's medical records. <Nubia Gomez PA-C - Last Filed: 11/26/24 00:50> Lab Data Attestation: I reviewed the patient's lab results. <ASHA Velasquez Last Filed: 11/26/24 00:50> Result diagrams: 11/25/24 22:56 11/25/24 22:56 <ASHA Velasquez Last Filed: 11/26/24 00:50> Labs: Lab Results 11/25/24 11/25/24 Range/Units 21:48 22:56 WBC 7.6 (4.5-10.0) K/mm3 RBC 4.53 (4.2-5.4) M/mm3 Hgb 13.7 (12.0-15.0) g/dL Hct 40.8 (37.0-47.0) % MCV 90.1 (80-100) fl MCH 30.2 (26-34) pg MCHC 33.6 (32-36) g/dl RDW 13.1 (11.5-14.5) % Plt Count 225 (150-375) k/mm3 MPV 9.3 (7.4-10.4) fl Immature Gran % (Auto) 0.3 (0-0.5) % Neut % (Auto) 61.0 (45.5-73.1) % Lymph % (Auto) 27.0 (18.3-44.2) % [place] % (Auto) 9.3 H (2.6-8.5) % Eos % (Auto) 2.0 (0-4.4) % Baso % (Auto) 0.4 (0.2-1.2) % Lymph # (Auto) 2.06 (0.9-3.2) K/mm3 [place] # (Auto) 0.7 H (0.1-0.6) K/mm3 Eos # (Auto) 0.2 (0-0.3) K/mm3 Baso # (Auto) 0.0 (0.0-0.1) K/mm3 Abs Immat Gran (auto) 0.02 (0.00-0.031) K/mm3 Absolute Neuts (auto) 4.7 (1.3-6.7) K/mm3 Absolute Nucleated RBC 0.000 (0.0-0.012) K/mm3 Nucleated RBC % 0.0 (0.0-0.2) % Sodium 139 (137-145) mmol/L Potassium 3.9 (3.4-5.0) mmol/L Chloride 106 (98-107) mmol/L Carbon Dioxide 23 (22-30) mmol/L Anion Gap 10 (4-12) mmol/L BUN 12 (7-17) mg/dL Creatinine 0.56 L (0.7-1.0) mg/dL Estim Creat Clear Calc 108 ml/min Estimated GFR > 60 (59 - ) Glucose 83 (65-110) mg/dL Calcium 8.9 (8.4-10.2) mg/dL Urine Color Yellow (Yellow) Urine Appearance Cloudy H (Clear) Urine pH 5.5 (5.0-9.0) Ur Specific [place] 1.021 (1.001-1.035) Urine Protein 1+ H (Negative) mg/dL Urine Glucose (UA) Negative (Negative) mg/dL Urine Ketones Negative (Negative) mg/dL Ur Blood (Man) 3+ H (Negative) Urine Nitrate Positive H (Negative) Urine Bilirubin Negative (Negative) Urine Urobilinogen 0.2 (<2.0) mg/dL Add Ur Microanalysis Reviewed Leukocyte Esterase Rfl 2+ H (Negative) ALEKSANDRA/UL Urine RBC 51-100 H (0-2) /hpf Urine WBC >100 H (0-3) /hpf Ur Squamous Epith Cells Occasional (Few) /hpf Urine Bacteria 4+ H /hpf Urine Casts 0-2 <Nubia Gomez PA-C - Last Filed: 11/26/24 00:50> Lab Results 11/25/24 11/25/24 Range/Units 21:48 22:56 WBC 7.6 (4.5-10.0) K/mm3 RBC 4.53 (4.2-5.4) M/mm3 Hgb 13.7 (12.0-15.0) g/dL Hct 40.8 (37.0-47.0) % MCV 90.1 (80-100) fl MCH 30.2 (26-34) pg MCHC 33.6 (32-36) g/dl RDW 13.1 (11.5-14.5) % Plt Count 225 (150-375) k/mm3 MPV 9.3 (7.4-10.4) fl Immature Gran % (Auto) 0.3 (0-0.5) % Neut % (Auto) 61.0 (45.5-73.1) % Lymph % (Auto) 27.0 (18.3-44.2) % [place] % (Auto) 9.3 H (2.6-8.5) % Eos % (Auto) 2.0 (0-4.4) % Baso % (Auto) 0.4 (0.2-1.2) % Lymph # (Auto) 2.06 (0.9-3.2) K/mm3 [place] # (Auto) 0.7 H (0.1-0.6) K/mm3 Eos # (Auto) 0.2 (0-0.3) K/mm3 Baso # (Auto) 0.0 (0.0-0.1) K/mm3 Abs Immat Gran (auto) 0.02 (0.00-0.031) K/mm3 Absolute Neuts (auto) 4.7 (1.3-6.7) K/mm3 Absolute Nucleated RBC 0.000 (0.0-0.012) K/mm3 Nucleated RBC % 0.0 (0.0-0.2) % Sodium 139 (137-145) mmol/L Potassium 3.9 (3.4-5.0) mmol/L Chloride 106 (98-107) mmol/L Carbon Dioxide 23 (22-30) mmol/L Anion Gap 10 (4-12) mmol/L BUN 12 (7-17) mg/dL Creatinine 0.56 L (0.7-1.0) mg/dL Estim Creat Clear Calc 108 ml/min Estimated GFR > 60 (59 - ) Glucose 83 (65-110) mg/dL Calcium 8.9 (8.4-10.2) mg/dL Urine Color Yellow (Yellow) Urine Appearance Cloudy H (Clear) Urine pH 5.5 (5.0-9.0) Ur Specific [place] 1.021 (1.001-1.035) Urine Protein 1+ H (Negative) mg/dL Urine Glucose (UA) Negative (Negative) mg/dL Urine Ketones Negative (Negative) mg/dL Ur Blood (Man) 3+ H (Negative) Urine Nitrate Positive H (Negative) Urine Bilirubin Negative (Negative) Urine Urobilinogen 0.2 (<2.0) mg/dL Add Ur Microanalysis Reviewed Leukocyte Esterase Rfl 2+ H (Negative) ALEKSANDRA/UL Urine RBC 51-100 H (0-2) /hpf Urine WBC >100 H (0-3) /hpf Ur Squamous Epith Cells Occasional (Few) /hpf Urine Bacteria 4+ H /hpf Urine Casts 0-2 <Rebekah Dillon MD - Last Filed: 11/26/24 04:25> Imaging Data Attestation: I personally reviewed and interpreted this imaging study as follows: < Nubia Gomez PA-C - Last Filed: 11/26/24 00:50> Radiologist's impression: ITS Impressions Abdomen/Pelvis CT 11/25/24 23:26 IMPRESSION: 1. Bilateral kidney stones. 2. Hepatomegaly with fat infiltration. 3. Left ovarian cyst. <ASHA Velasquez Last Filed: 11/26/24 00:50> Discharge Plan Discharge Clinical Impression: Drug (multiple) resistant infection, Left flank pain UTI (urinary tract infection) Qualifiers: Urinary tract infection type: acute cystitis Hematuria presence: with hematuria Qualified Code(s): N30.01 - Acute cystitis with hematuria <Nubia Gomez PA-C - Last Filed: 11/26/24 00:50> Patient Disposition: Still a Patient <Nubia Gomez PA-C - Last Filed: 11/26/24 00:50> Condition: Stable <Nubia Gomez PA-C - Last Filed: 11/26/24 00:50>
[2024-11-25] MEDS: ONDANSETRON INJ 4 MG/2 ML VIAL IV PUSH (23:38)
[2024-11-25] MEDS: MORPHINE SULFATE (*CRX) 4 MG/ML INJ IV PUSH (23:39)
[2024-11-25] MEDS: SODIUM CHLORIDE 0.9% IV 1,000 ML 999 ML IV CONT (23:46)
[2024-11-25 23:58] VITALS: BP 126/88; PULSE 69; RESP 13; TEMP 36.7; O2SAT 96
[2024-11-26] VITALS (8 sets, daily range): BP systolic 108–165; BP diastolic 60–112; PULSE 60–77; RESP 14–16; TEMP 36.4–36.6; O2SAT 95–99; BMI 34.4
[2024-11-26] MEDS: MEROPENEM 1 GM/NS 100 ML 1 GM/100 ML BAG IVPB ×3 (01:02→16:44)
[2024-11-26] MEDS: MORPHINE SULFATE (*CRX) 4 MG/ML INJ IV PUSH ×4 (01:02→10:09)
[2024-11-26] MEDS: SODIUM CHLORIDE 0.9% IV 1,000 ML 100 ML IV CONT (01:30)
--- NOTE | 2024-11-26 01:57 | ADMGEN ---
This patient, Renee Luke, was admitted to Medical Room 248-. Patient/family oriented to hospital policies and general routines including ID bracelet, bed and alarms, visiting hours, pain management, procedures, bathroom and other care routines, personal items, smoking policy, room service/diet, and visiting hours. Information on how to activate the Rapid Response Team has been discussed. Patient/Family are encouraged to report perceived risks to care and to ask questions if they do not understand what they are told or what they should do.
[2024-11-26] MEDS: HYDROcodone/acetaminophen (*CRX) 5-325 MG TABLET 1 TAB PO ×3 (02:13→16:45)
--- NOTE | 2024-11-26 07:40 | P.HP_ITS ---
H&P: HPI History of Present Illness Date/Time: 11/26/24 07:40 Chief Complaint: Left flank pain Narrative: 44-year-old female with past medical history of kidney stones and stents presents the hospital with left-sided flank pain. Patient states that over the last month she has had several procedures with stent placements and stone removals on bilateral kidneys. She states since then her kidneys and ureters argueta ve been very tender. Last night she had symptoms kidney stone pain and increasing UTI symptoms so she came to the emergency room. Was seen in the ED here on Saturday, diagnosed with pyelonephritis. Started on ciprofloxacin which she states did not help. Her CBC and BMP were within normal limits, UA shows cloudy with positive nitrates 2+ leukocyte esterase over 100 wbc's 4+ bacteria, CT of the abdomen pelvis showed bilateral kidney stones, hepatomegaly with fatty infiltrate, and left ovarian cyst, which all have previously been seen on CTs. Patient had a culture and sensitivity of her UA on 11/23/2024 the was sensitive to cefepime, meropenem and Zosyn. She was started on meropenem in the ED and given a L bolus of fluid. Review of Systems Review of Systems: 12 systems were reviewed and are negativ e except for as per HPI. [facility] Past Medical History Medical History Left ureteral stone Hypertension Gastroesophageal reflux disease Sleep paralysis, recurrent isolated Smoker Obesity Depression Multiple kidney stones Seasonal allergies Surgical History Surgical History H/O ureteroscopy 10/21/24 on the right due to proximal ureteral stone; Dr Gonzalez History of laparoscopic cholecystectomy on 04/25/23 PDC History of tubal ligation History of endometrial ablation (2009) History of hysterectomy (2016) History of open reduction and internal fixation (ORIF) procedure (2012) Left elbow. History of section 2000, 2001, 2009 Status post cystoscopy with ureteral stent placement Family History Family History Mother Diabetes mellitus Depression Alcoholism Father Hypertension Sibling Congenital heart disease Son Asthma Grandparent Diabetes mellitus Cerebrovascular accident Social History Social History Social History: Surrogate medical decision maker: Bang Luke, spouse. Code status: Full code. Smoking packs per day: 0.5 Smoking cigarettes per day: 10.0 Years smoked: 32 Smoking pack-years: 16.00 Smoking status: Current every day smoker Tobacco type: cigarettes Second hand tobacco smoke exposure: Yes Alcohol intake: never Alcohol use details: Social alcohol use in moderation. Substance use: never Substance use type: does not use Do You Feel Safe in your Home?: Yes Lack of Transportation: No Lack of Food: Never True Current Housing: I Have Housing Concerned About Future Housing: No Difficulty Paying Gas/Electric Bills: No Difficulty Paying for Meds: No Currently Unemployed: No Education: High School Diploma/GED Difficulty w/ Childcare or Family Care: No Living arrangements: with family Spiritual care concerns: No Meds Home Medications and Allergies Home Medications ?Medication ?Instructions ?Recorded ?Confirmed ?Type multivitamin 1 tablet PO DAILY 04/04/22 11/26/24 History ondansetron 4 mg disintegrating 4 mg PO Q8H #14 tabs 10/12/24 11/26/24 Rx tablet nebivolol 10 mg tablet (Bystolic) 10 mg PO DAILY 10/21/24 11/26/24 History acetaminophen 500 mg capsule 1,000 mg (2 x 500 mg) PO Q6H PRN 10/25/24 11/26/24 Rx pain #30 caps hydrocodone 5 mg-acetaminophen 325 1 tablet PO Q4H PRN Pain Rated 4-6 11/16/24 11/26/24 Rx mg tablet #12 tabs amlodipine 10 mg tablet See Rx Instructions .Route 11/23/24 11/26/24 Rx .COMPLEX #90 tabs hydrochlorothiazide 25 mg tablet See Rx Instructions .Route 11/23/24 11/26/24 Rx .COMPLEX #90 tabs losartan 50 mg tablet See Rx Instructions .Route 11/23/24 11/26/24 Rx .COMPLEX #180 tabs omeprazole 20 mg capsule,delayed 20 mg PO DAILY 11/23/24 11/26/24 History release tamsulosin 0.4 mg capsule 0.4 mg PO DAILY PRN urinary 11/26/24 11/26/24 History retention Allergies Allergy/AdvReac Type Severity Reaction Status Date / Time ketorolac (From Toradol) Allergy Headache,Rash, Verified 11/26/24 01:19 Swollen tongue tramadol AdvReac Mild VOMITING/HE Verified 11/26/24 01:19 ADACHE hydralazine AdvReac Headache Verified 11/26/24 01:19 Vital Signs Vital Signs - 24 hr 11/25/24 20:25 11/25/24 23:58 11/26/24 01:35 Temperature 97.9 F 98.1 F Pulse Rate 82 69 65 Respiratory Rate 14 13 16 Blood Pressure 159/94 H 126/88 132/65 Pulse Oximetry 97 96 96 Oxygen Delivery Room Air 11/26/24 02:15 11/26/24 04:22 11/26/24 06:03 Temperature 98 F Pulse Rate 66 Respiratory Rate 16 Blood Pressure 165/112 H 108/67 121/79 Pulse Oximetry 99 Oxygen Delivery Exam Narrative: General: well appearing, appears stated age. HEENT: normocephalic, atraumatic. Mucous membranes moist. EOMI, PERRLA, bilateral sclera anicteric, no conjunctival injection. Neck supple without JVD, lymphadenopathy, or bruit. Respiratory: clear to ascultation bilaterally. No rales/rhonic/wheezes. Cardiovascular: Regular rate and rhythm, normal S1-S2 upon ascultation. No murmurs, rubs, or clicks. PMI is nondisplaced, capillary refill less than 3 second. Abdomen: Soft, round, no pulsatile masses, nondistended and nontender. No rebound, no guarding. No CVA tenderness, no hepatosplenomegaly. Bowel sounds present to all four quadrants. No high pitch or tinkling sounds, resonant to percussion. Extremities: No cyanosis, clubbing, or edema present. Pulses are palpable 2/2. Active ROM to all four extremities. Neuro: Alert and orientated x 4. PERRLA. Cranial nerves 2-12 intact without focal deficit. Skin: Warm, dry, and intact, without rash, erythema, or lesion. Psych: pleasant, cooperative, normal speech, normal affect, no hallucinations, no dysarthia H&P: Results Labs Labs: Short CBC 11/25/24 Range/Units 22:56 WBC 7.6 (4.5-10.0) K/mm3 Hgb 13.7 (12.0-15.0) g/dL Hct 40.8 (37.0-47.0) % Plt Count 225 (150-375) k/mm3 BMP 11/25/24 22:56 Sodium 139 Potassium 3.9 Chloride 106 Carbon Dioxide 23 BUN 12 Creatinine 0.56 L Glucose 83 Calcium 8.9 Urine 11/25/24 Range/Units 21:48 Urine Color Yellow (Yellow) Urine Appearance Cloudy H (Clear) Urine pH 5.5 (5.0-9.0) Ur Specific [place] 1.021 (1.001-1.035) Urine Protein 1+ H (Negative) mg/dL Urine Glucose (UA) Negative (Negative) mg/dL Assessment and Plan Assessment and plan (1) UTI (urinary tract infection): Qualifiers: Hematuria presence: with hematuria Urinary tract infection type: acute cystitis Qualified Code(s): N30.01 - Acute cystitis with hematuria Code(s): N39.0 - Urinary tract infection, site not specified Status: Acute Assessment and Plan: Meropenem x7 days 11/23 culture positive for E coli with sensitivity to meropenem Repeat culture and sensitivity pending IVF for hydration Restart Flomax (2) HTN (hypertension): Qualifiers: Hypertension type: primary hypertension Qualified Code(s): I10 - Essential (primary) hypertension Code(s): I10 - Essential (primary) hypertension Status: Acute Assessment and Plan: Restart home antihypertensives (3) Flank pain: Code(s): R10.9 - Unspecified abdominal pain Status: Acute Assessment and Plan: Bilateral nonobstructing small kidney stones Dilaudid, ibuprofen and aggressive fluid hydration Quality VTE Prophylaxis VTE prophylaxis: mechanical ordered Hospitalist MIPS Advance Care Plan I have confirmed that the patient's Advanced Care Plan is present, code status is documented, or surrogate decision maker is listed in patient medical record.: Yes Medication Reconciliation I have utilized all available resources to obtain, update and review the patients current medications (includes all prescriptions, OTC, herbals, cannabis, and nutritional supplements).: Yes
[2024-11-26] MEDS: LOSARTAN POTASSIUM 50 MG TABLET BY MOUTH ×2 (08:31→20:46)
[2024-11-26] MEDS: ENOXAPARIN 40 MG/0.4 ML SYRINGE SUB-Q (08:32)
[2024-11-26] MEDS: DOCUSATE SODIUM 100 MG CAPSULE PO (08:32)
[2024-11-26] MEDS: hydroCHLOROthiazide 25 MG TABLET BY MOUTH (08:32)
[2024-11-26] MEDS: amLODIPine BESYLATE 10 MG TABLET BY MOUTH (08:32)
--- OUTSIDE RECORDS SUMMARY | 2024-11-26 09:37 | XMS_ITS | Clinical Summary ---
Author Organization [facility] [employer] Address [address] [place] [address] Care Team Providers Care Chief Risk Officer Name Role Phone Damian Sadler MD Primary Care Provider [phone] Source Comments [facility] [employer],non-owned Affiliates and Associated Physician Practices is amultiple site organization consisting of ambulatory clinics and hospital sitesin [place], [place], [place] and [place]. This disclosure is being madepursuant to the Care Everywhere program and may not contain all information available regarding this patient. 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 Gender Identity Not on file Sexual Orientation [...] Resulting Agency Comment Lab Testing performed at: [facility] [address] [phone] us Nancy Cotto MD LAB - CHEMISTRY ORDERABLES Final Result [facility] INSURANCE BILL [address] [place] [address] * (ABNORMAL) COMPREHENSIVE METABOLIC PANEL (02/03/2024 1:03 AM [facility] BUN 9 7 - 26 mg/dL 02/03/2024 [...] 7 - 23 02/03/2024 1:45 AM [facility] Osmolality Calculated 286 275 - 295 mOsm/kg 02/03/2024 1:45 AM [facility] Albumin/Globulin Ratio 1.3 1.1 - 2.3 02/03/2024 1:45 AM T [facility] eGFR by CKD-EPI >90 >=90 mL/min/1.7 3 m2 02/03/2024 1:45 AM T [facility] Blood BLOOD SPECIMEN / Unknown Venipuncture / Unknown 02/03/2024 1:03 AM CDT 02/03/2024 1:17 AM CDT Kaylee Reyes MD LAB - CHEMISTRY ORDERABLES Fi nal Result [facility] [address] [place] [address], [place] [phone] from Last 3 Months or Most Recently Relevant to Health Maintenance Insurance [phone] (Work) [address] [place] [phone] MEDICAID [place] SELF PAY NO INSURANCE Member Subscriber Plan / Payer (Ef fective for All Dates) Name:Tita Luke Member ID:Not on file Relation to Subscriber:Not on file Name:TITA LUKE Subscriber ID:Not on file (Home) Address: [address] [place] [id number] Payer ID:Not on file Group ID:Not on file Type:Self Pay Address: [facility] Care Teams Chief Risk Officer Relationship Specialty Start Date End Date Damian Sadler MD PCP - General Internal Medicine 07/04/16
--- OUTSIDE RECORDS SUMMARY | 2024-11-26 09:37 | XMS_ITS | Clinical Summary ---
Author Organization [facility] Address [address] [place] [address] Care Team Providers Care Senior Architect/Design Manager Name Role Phone Lucas Carter DO Primary Care Provider [phone] Allergies Active Allergy Reactions Criticality Noted Date Comments Hydralazine Headache,Vomiting Low 01/21/2024 Ketorolac Hives,Itching Medium 10/17/2017 Tramadol Hives,Urticaria Medium 08/27/2016 Medications omeprazole (PriLOSEC) 20 mg capsuleIndication s:Treatment of Non-Bleeding Gastric Disorder Take 1 capsule (20 mg total) by mouth glass deposition tender before breakfast Active MULTIVIT-MINERALS /FERROUS FUM (MULTI VITAMIN ORAL)Indications: health Take 1 tablet by mouth glass deposition tender before breakfast Active ondansetron ODT (ZOFRAN-ODT) 4 [...] 1 tablet (25 mg total) by mouth glass deposition tender before breakfast Active nebivoloL (BYSTOLIC) 10 mg [...] CDT - 10/31/2024 10:51 PM CDT Emergency [facility] Emergency Department [address] [place] [address] Yanni Garcia MD Flank pain (Primary Dx) [...] on file Legal Sex Female 9:06 PM 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 Medical Devices Implanted Type Area Digital Developer Device Identifier Shelf Expiration Date Model [...] hCG, urine (10/31/2024 6:32 PM CDT) Pathologist [facility] HCG, ur, POC Negative Negative Lot Number [id number] QC Backgroud Clear Acceptable QC Control Line Acceptable Urine 10/31/2024 6:32 PM CDT Yanni Garcia MD POINT OF CARE TEST ORDERABL ES Final Result * eGFR (10/31/2024 5:42 PM CDT) Pathologist [facility] eGFR >90 >=60 mL/min/1. 73 m2 Comment: [...] MD LAB BLOOD ORDERABLES Final R esult [facility] [address] [facility] [place] [address] * (ABNORMAL) Differential, auto (10/31/2024 5:42 PM CDT) Neutrophil abs 5.6 1.5 - 6.5 K/cumm Imm gran abs 0.0 0.0 - 0.1 K/cumm [facility] Lymphocyte abs 2.3 0.8 - 3.3 K/cumm [facility] Monocyte abs 0.9(H) 0.2 - 0.8 K/cumm [facility] Eosinophil abs 0.1 0.0 - 0.5 K/cumm [facility] Basophil abs 0.1 0.0 - 0.1 K/cumm [facility] Neutrophil pct 62.4 % [facility] Comment: Interpretive Data Percent cell count reference ranges are not reported, since discordance with absolute values may lead to misinterpretation of CBC data. Current Interpretive Data was last revised on 2017. Imm gran pct 0.3 % [facility] Comment: Interpretive Data Percent cell count reference ranges are not reported, since discordance with absolute values may lead to misinterpretation of CBC data. Current Interpretive Data was last revised on 2017. Lymphocyte pct 25.2 % [facility] Comment: Interpretive Data Percent cell count reference ranges are not reported, since discordance with absolute values may lead to misinterpretation of CBC data. Current Interpretive Data was last revised on 2017. Monocyte pct 10.0 % [facility] Comment: Interpretive Data Percent cell count reference ranges are not reported, since discordance with absolute values may lead to misinterpretation of CBC data. Current Interpretive Data was last revised on 2017. Eosinophil pct 1.5 % [facility] Comment: Interpretive Data Percent cell count reference ranges are not reported, since discordance with absolute values may lead to misinterpretation of CBC data. Current Interpretive Data was last revised on 2017. Basophil pct 0.6 % [facility] Comment: Interpretive Data Percent cell count reference ranges are not reported, since discordance with absolute values may lead to misinterpretation of CBC data. Current Interpretive Data was last revised on 2017. Blood 10/31/2024 5:42 PM CDT 10/31/2024 5:51 PM CDT us Severo Mckeon MD LAB BLOOD ORDERABLES Final R esult [facility] [address] [facility] [place] [address] * Urinalysis reflex to microscopic and culture Urine (10/31/2024 5:42 PM CDT) Color, ur Straw Yellow Clarity, ur Clear Clear [facility] Specific gravity, ur 1.011 1.003 - 1.030 [facility] pH, urine 5.5 [facility] Comment: Interpretive Data U rine pH is affected by diet, medications, systemic acid-base disturbances, and renal tubular function. pH may affect urinary stone formation. For example, urine pH below 6.0 may help reduce the tendency for calcium phosphate stones and pH greater than 6.0 may reduce the tendency for uric acid stone formation. Source: [facility] [employer] Current Interpretive Data was last revised on 2017 Protein, ur ql Negative Negative [facility] Glucose, ur ql Negative Negative [facility] Ketones, ur Negative Negative [facility] Bilirubin, ur Negative Negative [facility] Blood, ur Negative Negative [facility] Urobilinogen, ur <2.0 <2.0 mg/dL [facility] Nitrite, ur Negative Negative [facility] Leukocyte esterase, ur Negative Negative [facility] UA reflex comment Reflex conditions for microscopic UA and culture not met. [facility] Urine 10/31/2024 5:42 PM CDT 10/31/2024 5:49 PM CDT us Minda Gurrola MD LAB MICROBIOLOGY - GENER AL ORDERABLES Final Result [facility] Department [place] [address] * (ABNORMAL) CBC with auto differential (10/31/2024 5:42 PM CDT) WBC 8.9 3.8 - 9.9 K/cumm Hgb 16.1(H) 11.9 - 15.5 g/dL [facility] Hct 45.8(H) 35.6 - 45.5 % [facility] Plt 319 150 - 400 K/cumm [facility] MPV 9.2 9.1 - 12.3 fL [facility] RBC 5.35(H) 3.90 - 5.20 M/cumm [facility] MCV 85.6 81.3 - 96.4 fL [facility] MCH 30.1 27.1 - 33.3 pg [facility] MCHC 35.2 32.3 - 35.7 g/dL [facility] RDW CV 12.5 11.1 - 14.9 % [facility] RDW SD 38.8 35.7 - 48.1 fL [facility] NRBC abs 0.00 0.00 - 0.01 K/cumm [facility] Blood Venous blood specimen / Unknown 10/31/2024 5:42 PM CDT 10/31/2024 5:51 PM CDT us Yanni Garcia MD LAB BLOOD ORDERABLES Final Result [facility] Department [place] [address] * Lipase (10/31/2024 5:42 PM CDT) Pathologist [facility] Lipase 41 10 - 99 Units/L Blood Venous blood specimen / Unknown 10/31/2024 5:42 PM CDT 10/31/2024 5:51 PM CDT us Yanni Garcia MD LAB BLOOD ORDERABLES Final Result [facility] [address] [facility] Department [place] [address] * (ABNORMAL) Comprehensive metabolic panel (10/31/2024 5:42 PM CDT) Sodium 142 135 - 145 mmol/L Potassium, pl 4.2 3.3 - 4.9 mmol/L [facility] Chloride 105 97 - 110 mmol/L [facility] CO2 24 22 - 32 mmol/L [facility] Anion gap 13 2 - 15 mmol/L [facility] BUN 9 6 - 25 mg/dL [facility] Creatinine 0.65 0.60 - 1.10 mg/dL [facility] Glucose 84 70 - 199 mg/dL [facility] Comment: Interpretive Data Fasting glucose [...] 2022. Calcium 10.3 8.5 - 10.3 mg/dL [facility] Bilirubin, total 0.3 0.1 - 1.2 mg/dL [facility] Protein, pl 8.3 6.5 - 8.5 g/dL [facility] Albumin 4.7 3.5 - 5.0 g/dL [facility] Alk phos 105 40 - 130 Units/L [facility] ALT 68(H) 7 - 45 Units/L [facility] AST 48(H) 10 - 45 Units/L [facility] Blood Venous blood specimen / Unknown 10/31/2024 5:42 PM CDT 10/31/2024 5:51 PM CDT Yanni Garcia MD LAB BLOOD ORDERABLES Final Result [facility] Department [place] [address] * ECG 12-LEAD (10/31/2024 4:30 PM CDT) [...] MD ECG ORDERABLES Final Resul t [facility] from Last 3 Months Insurance IDPA [facility] CHO[facility] IDPA IDPA Advance Directives For more information, please contact: [phone] * Full Code (Latest Code Status on File) Date Activated Date Inactivated Comments 08/15/2022 3:10 PM 08/18/2022 6:09 PM Care Teams Senior Architect/Design Manager Relationship Specialty Start Date End Date Lucas Carter DO PCP - General Internal Medicine 08/15/22
--- OUTSIDE RECORDS SUMMARY | 2024-11-26 09:37 | XMS_ITS | CONTINUITY OF CARE DOCUMENT ---
Author Name sylviaisabelhugo Address Unknown Organization [facility] Address [address] [place] [address] Phone [phone] Care Team Providers Care Computer Systems Information Director Name Role Phone William CURIEL, Herlinda Unavailable SHAWNEE CURIEL, NABIL Schmidt Unavailable [phone] INSURANCE PROVIDERS Payer name Policy type / Coverage type Bj red libertarian [place] [employer] Medicaid [id number] [facility] [id number]
--- OUTSIDE RECORDS SUMMARY | 2024-11-26 09:37 | XMS_ITS | Clinical Summary ---
Author Organization [facility] Address [address] [place] [address] Phone Care Team Providers Care Dispersion Mixer Name Role Phone Unavailable Primary Care Provider [...] Care Team Description 11/13/2024 Travel 11/13/2024 Telephone [facility] [address] [place] [address] Carlyle Calderon MD 11/12/2024 Telephone [facility] [address] [place] [address] Carlyle Calderon MD from Last [...]
--- OUTSIDE RECORDS SUMMARY | 2024-11-26 09:37 | XMS_ITS | Referral Summary ---
Author Organization [facility] Address [address] [place] [address] Care Team Providers Care Repairer Hairspring Name Role Phone Lucas Carter DO Primary Care Provider [phone] Encounters Date Type Department Care Team Description 10/31/2024 4:48 PM CDT - 10/31/2024 10:51 PM CDT Emergency [facility] Emergency Department [address] [place] [address] Yanni Garcia MD Flank pain (Primary Dx) Discharge Disposition: Discharge to home or self care from Last 3 Months Allergies Active Allergy Reactions Criticality Noted Date Comments Hydralazine Headache,Vomiting Low 01/21/2024 Ketorolac Hives,Itching Medium 10/17/2017 Tramadol Hives,Urticaria Medium 08/27/2016 Medications omeprazole (PriLOSEC) 20 mg capsuleIndication s:Treatment of Non-Bleeding Gastric Disorder Take 1 capsule (20 mg total) by mouth healthcare economics consultant before breakfast Active MULTIVIT-MINERALS /FERROUS FUM (MULTI VITAMIN ORAL)Indications: health Take 1 tablet by mouth healthcare economics consultant before breakfast Active ondansetron ODT (ZOFRAN-ODT) [...] 1 tablet (25 mg total) by mouth healthcare economics consultant before breakfast Active nebivoloL (BYSTOLIC) 10 [...] on file 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 Medical Devices Implanted Type Area A And P Technician Device Identifier Shelf Expiration Date Model [...] POCT hCG, urine (10/31/2024 6:32 PM CDT) [facility] HCG, ur, POC Negative Negative Lot Number [id number] QC Backgroud Clear Acceptable QC Control Line Acceptable Urine 10/31/2024 6:32 PM CDT Yanni Garcia MD POINT OF CARE TEST ORDERABL ES Final Result * eGFR (10/31/2024 5:42 PM CDT) [facility] eGFR >90 >=60 mL/min/1. 73 m2 [...] MD LAB BLOOD ORDERABLES Final R esult [facility] [place] [address] * (ABNORMAL) Differential, auto (10/31/2024 5:42 PM CDT) Neutrophil abs 5.6 1.5 - 6.5 K/cumm Imm gran abs 0.0 0.0 - 0.1 K/cumm [facility] Lymphocyte abs 2.3 0.8 - 3.3 K/cumm [facility] Monocyte abs 0.9(H) 0.2 - 0.8 K/cumm [facility] Eosinophil abs 0.1 0.0 - 0.5 K/cumm [facility] Basophil abs 0.1 0.0 - 0.1 K/cumm [facility] Neutrophil pct 62.4 % [facility] Comment: Interpretive Data Percent cell count reference ranges are not reported, since discordance with absolute values may lead to misinterpretation of CBC data. Current Interpretive Data was last revised on 2017. Imm gran pct 0.3 % [facility] Comment: Interpretive Data Percent cell count reference ranges are not reported, since discordance with absolute values may lead to misinterpretation of CBC data. Current Interpretive Data was last revised on 2017. Lymphocyte pct 25.2 % [facility] Comment: Interpretive Data Percent cell count reference ranges are not reported, since discordance with absolute values may lead to misinterpretation of CBC data. Current Interpretive Data was last revised on 2017. Monocyte pct 10.0 % [facility] Comment: Interpretive Data Percent cell count reference ranges are not reported, since discordance with absolute values may lead to misinterpretation of CBC data. Current Interpretive Data was last revised on 2017. Eosinophil pct 1.5 % [facility] Comment: Interpretive Data Percent cell count reference ranges are not reported, since discordance with absolute values may lead to misinterpretation of CBC data. Current Interpretive Data was last revised on 2017. Basophil pct 0.6 % [facility] Comment: Interpretive Data Percent cell count reference ranges are not reported, since discordance with absolute values may lead to misinterpretation of CBC data. Current Interpretive Data was last revised on 2017. Blood 10/31/2024 5:42 PM CDT 10/31/2024 5:51 PM CDT us Severo Mckeon MD LAB BLOOD ORDERABLES Final R esult [facility] [place] [address] * Urinalysis reflex to microscopic and culture Urine (10/31/2024 5:42 PM CDT) Color, ur Straw Yellow Clarity, ur Clear Clear [facility] Specific gravity, ur 1.011 1.003 - 1.030 [facility] pH, urine 5.5 [facility] Comment: Interpretive Data U rine pH is affected by diet, medications, systemic acid-base disturbances, and renal tubular function. pH may affect urinary stone formation. For example, urine pH below 6.0 may help reduce the tendency for calcium phosphate stones and pH greater than 6.0 may reduce the tendency for uric acid stone formation. Source: [facility] Current Interpretive Data was last revised on 2017 Protein, ur ql Negative Negative [facility] Glucose, ur ql Negative Negative [facility] Ketones, ur Negative Negative [facility] Bilirubin, ur Negative Negative [facility] Blood, ur Negative Negative [facility] Urobilinogen, ur <2.0 <2.0 mg/dL [facility] Nitrite, ur Negative Negative [facility] Leukocyte esterase, ur Negative Negative [facility] UA reflex comment Reflex conditions for microscopic UA and culture not met. [facility] Urine 10/31/2024 5:42 PM CDT 10/31/2024 5:49 PM CDT Minda Gurrola MD LAB MICROBIOLOGY - GENER AL ORDERABLES Final Result [facility] [place] [address] * (ABNORMAL) CBC with auto differential (10/31/2024 5:42 PM CDT) WBC 8.9 3.8 - 9.9 K/cumm Hgb 16.1(H) 11.9 - 15.5 g/dL [facility] Hct 45.8(H) 35.6 - 45.5 % [facility] Plt 319 150 - 400 K/cumm [facility] MPV 9.2 9.1 - 12.3 fL [facility] RBC 5.35(H) 3.90 - 5.20 M/cumm [facility] MCV 85.6 81.3 - 96.4 fL [facility] MCH 30.1 27.1 - 33.3 pg [facility] MCHC 35.2 32.3 - 35.7 g/dL [facility] RDW CV 12.5 11.1 - 14.9 % [facility] RDW SD 38.8 35.7 - 48.1 fL [facility] NRBC abs 0.00 0.00 - 0.01 K/cumm [facility] Blood Venous blood specimen / Unknown 10/31/2024 5:42 PM CDT 10/31/2024 5:51 PM CDT us Yanni Garcia MD LAB BLOOD ORDERABLES Final Result [facility] [place] [address] * Lipase (10/31/2024 5:42 PM CDT) Lipase 41 10 - 99 Units/L Blood Venous blood specimen / Unknown 10/31/2024 5:42 PM CDT 10/31/2024 5:51 PM CDT us Yanni Garcia MD LAB BLOOD ORDERABLES Final Result [facility] [place] [address] * (ABNORMAL) Comprehensive metabolic panel (10/31/2024 5:42 PM CDT) Pathologist [facility] Sodium 142 135 - 145 mmol/L Potassium, pl 4.2 3.3 - 4.9 mmol/L [facility] Chloride 105 97 - 110 mmol/L [facility] CO2 24 22 - 32 mmol/L [facility] Anion gap 13 2 - 15 mmol/L [facility] BUN 9 6 - 25 mg/dL [facility] Creatinine 0.65 0.60 - 1.10 mg/dL [facility] Glucose 84 70 - 199 mg/dL [facility] Comment: Interpretive Data Fasting glucose >/= [...] 2022. Calcium 10.3 8.5 - 10.3 mg/dL [facility] Bilirubin, total 0.3 0.1 - 1.2 mg/dL [facility] Protein, pl 8.3 6.5 - 8.5 g/dL [facility] Albumin 4.7 3.5 - 5.0 g/dL [facility] Alk phos 105 40 - 130 Units/L [facility] ALT 68(H) 7 - 45 Units/L [facility] AST 48(H) 10 - 45 Units/L [facility] Blood Venous blood specimen / Unknown 10/31/2024 5:42 PM CDT 10/31/2024 5:51 PM CDT Yanni Garcia MD LAB BLOOD ORDERABLES Final Result [facility] [place] [address] * ECG 12-LEAD (10/31/2024 4:30 PM CDT) [...] MD ECG ORDERABLES Final Resul t [facility] from Last 3 Months Insurance IDPA [facility] CHOICE PLUS [facility] H[facility]/PPO Address: [address] [address] [place] [address] [facility] IDPA IDPA Advance Directives For more information, please contact: [phone] * Full Code (Latest Code Status on File) Date Activated Date Inactivated Comments 08/15/2022 3:10 PM 08/18/2022 6:09 PM Care Teams Repairer Hairspring Relationship Specialty Start Date End Date Lucas Carter DO PCP - General Internal Medicine 08/15/22
--- OUTSIDE RECORDS SUMMARY | 2024-11-26 09:38 | XMS_ITS | CONTINUITY OF CARE DOCUMENT ---
Author Name sylviaisabeluhgo Address Unknown Organization [facility] Address [address] [place] [address] Phone [phone] Care Team Providers Care Guide Travel Name Role Phone William CURIEL, Herlinda Unavailable [phone] SHAWNEE CURIEL, NABIL Schmidt Unavailable INSURANCE PROVIDERS Payer name Policy type / Coverage type Bj red libertarian [place] [employer] Medicaid [id number] [facility] [id number]
[2024-11-26] MEDS: SODIUM CHLORIDE 0.9% IV 1,000 ML 125 ML IV CONT ×2 (10:52→20:49)
[2024-11-26] MEDS: TAMSULOSIN HCL 0.4 MG CAPSULE PO (11:32)
[2024-11-26] MEDS: IBUPROFEN 400 MG TABLET PO ×2 (11:32→18:00)
[2024-11-26] MEDS: HYDROmorphone HCL INJ (*CRX) 2 MG/ML VIAL 0.5 MG IV PUSH ×3 (12:48→21:27)
[2024-11-26] MEDS: FAMOTIDINE 20 MG TABLET PO (20:46)
[2024-11-26] MEDS: NEBIVOLOL HCL 5 MG TABLET 10 MG PO (20:46)
[2024-11-27] MEDS: HYDROmorphone HCL INJ (*CRX) 2 MG/ML VIAL 0.5 MG IV PUSH ×7 (00:25→23:51)
[2024-11-27] MEDS: MEROPENEM 1 GM/NS 100 ML 1 GM/100 ML BAG IVPB ×3 (00:27→17:01)
[2024-11-27] MEDS: IBUPROFEN 400 MG TABLET PO ×4 (00:30→23:55)
[2024-11-27 05:16] VITALS: BP 128/77; PULSE 66; RESP 16; TEMP 36.6; O2SAT 98
--- NOTE | 2024-11-27 05:27 | PC.NURSE ---
computer downtime from 1-5:15
[2024-11-27] MEDS: SODIUM CHLORIDE 0.9% IV 1,000 ML 125 ML IV CONT ×3 (05:58→22:53)
[2024-11-27 06:06] LABS: Hematocrit 35.1 % (37.0-47.0); Hemoglobin 12.1 g/dL (12.0-15.0); Mean Corpuscular HGB Conc 34.5 g/dl (32-36); Mean Corpuscular Hemoglobin 30.7 pg (26-34); Mean Corpuscular Volume 89.1 fl (80-100); Mean Platelet Volume 9.4 fl (7.4-10.4); Platelet Count Result 179 k/mm3 (150-375); Red Blood Count 3.94 M/mm3 (4.2-5.4); Red Cell Distribution Width 12.5 % (11.5-14.5); White Blood Count 5.4 K/mm3 (4.5-10.0)
[2024-11-27 06:16] LABS: Anion Gap 5 mmol/L (4-12); Blood Urea Nitrogen 9 mg/dL (7-17); Calcium 8.1 mg/dL (8.4-10.2); Carbon Dioxide 24 mmol/L (22-30); Chloride 107 mmol/L (98-107); Estimated CRCL calculation 125 ml/min; Estimated Glomerular Filt Rate > 60; Glucose 110 mg/dL (65-110); Potassium 3.6 mmol/L (3.4-5.0); Sodium 136 mmol/L (137-145)
[2024-11-27 06:50] LABS: Band Neutrophils Percent 0 % (0-6); Basophils Absolute Manual 0.05 K/mm3 (0.0-0.1); Basophils Percent Manual 1 % (0-1); Eosinophils Absolute Manual 0.05 K/mm3 (0.02-0.50); Eosinophils Percent Manual 1 % (0-4); Lymphocytes Absolute Manual 2.16 K/mm3 (1.1-4.5); Lymphocytes Percent Manual 40 % (18-44); Monocytes Absolute Manual 0.37 K/mm3 (0.1-0.90); Monocytes Percent Manual 7 % (3-9); Neutrophils Absolute Manual 2.75 K/mm3 (1.7-7.2); Neutrophils Percent Manual 51 % (46-73); Total Cells Counted 100
[2024-11-27 06:51] LABS: Anisocytosis 1+; Platelet Estimate Adequate (Adequate); Schistocytes None Seen
[2024-11-27] MEDS: LOSARTAN POTASSIUM 50 MG TABLET BY MOUTH ×2 (08:27→20:45)
[2024-11-27] MEDS: hydroCHLOROthiazide 25 MG TABLET BY MOUTH (08:27)
[2024-11-27] MEDS: DOCUSATE SODIUM 100 MG CAPSULE PO (08:27)
[2024-11-27] MEDS: amLODIPine BESYLATE 10 MG TABLET BY MOUTH (08:27)
[2024-11-27] MEDS: TAMSULOSIN HCL 0.4 MG CAPSULE PO (08:28)
[2024-11-27] MEDS: ENOXAPARIN 40 MG/0.4 ML SYRINGE SUB-Q (08:28)
--- NOTE | 2024-11-27 11:45 | P.PNIM_ITS ---
Progress Note: A&P Assessment and Plan (1) UTI (urinary tract infection): Qualifiers: Hematuria presence: with hematuria Urinary tract infection type: acute cystitis Qualified Code(s): N30.01 - Acute cystitis with hematuria Code(s): N39.0 - Urinary tract infection, site not specified Status: Acute Assessment and Plan: Meropenem x7 days 11/23 culture positive for E coli with sensitivity to meropenem Repeat culture and sensitivity pending IVF for hydration On tamsulosin Flomax (2) HTN (hypertension): Qualifiers: Hypertension type: primary hypertension Qualified Code(s): I10 - Essential (primary) hypertension Code(s): I10 - Essential (primary) hypertension Status: Acute Assessment and Plan: Restart home antihypertensives (3) Flank pain: Code(s): R10.9 - Unspecified abdominal pain Status: Acute Assessment and Plan: Bilateral nonobstructing small kidney stones Dilaudid, ibuprofen and aggressive fluid hydration Urology consulted for intractable pain Plan DVT prophylaxis on Sq Lovenox Subjective Date/time seen: 11/27/24 11:45 Interval history: Patient complaining of severe left flank pain Urology consulted Review of Systems Review of Systems: 12 systems were reviewed and are negativ e except for as per HPI. Exam Narrative: General: well appearing, appears stated age. HEENT: normocephalic, atraumatic. Mucous membranes moist. EOMI, PERRLA, bilateral sclera anicteric, no conjunctival injection. Neck supple without JVD, lymphadenopathy, or bruit. Respiratory: clear to ascultation bilaterally. No rales/rhonic/wheezes. Cardiovascular: Regular rate and rhythm, normal S1-S2 upon ascultation. No murmurs, rubs, or clicks. PMI is nondisplaced, capillary refill less than 3 second. Abdomen: Soft, round, no pulsatile masses, nondistended and nontender. No rebound, no guarding. No CVA tenderness, no hepatosplenomegaly. Bowel sounds present to all four quadrants. No high pitch or tinkling sounds, resonant to percussion. Extremities: No cyanosis, clubbing, or edema present. Pulses are palpable 2/2. Active ROM to all four extremities. Neuro: Alert and orientated x 4. PERRLA. Cranial nerves 2-12 intact without focal deficit. Skin: Warm, dry, and intact, without rash, erythema, or lesion. Psych: pleasant, cooperative, normal speech, normal affect, no hallucinations, no dysarthia Objective Data Vital Signs Vital Signs: Vital Signs - 24 hr 11/26/24 14:00 11/26/24 20:43 11/26/24 20:46 Temperature 97.6 F 97.6 F Pulse Rate 61 60 76 Respiratory Rate 14 16 Blood Pressure 113/60 130/85 Pulse Oximetry 96 97 Oxygen Delivery 11/27/24 05:16 11/27/24 08:30 Temperature 97.8 F Pulse Rate 66 Respiratory Rate 16 Blood Pressure 128/77 Pulse Oximetry 98 Oxygen Delivery Room Air Intake/Output Intake/Output: Intake & Output 11/24/24 11/25/24 11/26/24 11/27/24 23:59 23:59 23:59 23:59 Intake Total 7138.7 1890 Output Total 100 Balance 7038.7 1890 Meds/Results Medications: Active Medications Generic Name Dose Route Start Last Admin Trade Name Freq PRN Reason Stop Dose Admin Acetaminophen 650 mg 11/26/24 07:51 Acetaminophen 325 Mg Tablet PO Q4H PRN Mild Pain (1-3) or Fever Hydrocodone Bitart/Acetaminophen 1 tab 11/26/24 00:42 11/26/24 16:45 Hydrocodone/Acetaminophen (*Crx) 5-325 Mg Tablet PO 1 tab Q4H PRN Administration Pain Rated 4-6 Amlodipine Besylate 10 mg 11/26/24 09:00 11/27/24 08:27 Amlodipine Besylate 10 Mg Tablet BY MOUTH 10 mg DAILY MARINA Administration Docusate Sodium 100 mg 11/26/24 09:00 11/27/24 08:27 Docusate Sodium 100 Mg Capsule PO 100 mg DAILY MARINA Administration Enoxaparin Sodium 40 mg 11/26/24 09:00 11/27/24 08:28 Enoxaparin 40 Mg/0.4 Ml Syringe SUB-Q 40 mg DAILY MARINA Administration Famotidine 20 mg 11/26/24 21:00 11/26/24 20:46 Famotidine 20 Mg Tablet PO 20 mg BEDTIME MARINA Administration Hydrochlorothiazide 25 mg 11/26/24 09:00 11/27/24 08:27 Hydrochlorothiazide 25 Mg Tablet BY MOUTH 25 mg DAILY MARINA Administration Hydromorphone HCl 0.5 mg 11/26/24 10:41 11/27/24 08:28 Hydromorphone Hcl Inj (*Crx) 2 Mg/Ml Vial IV PUSH 0.5 mg Q3H PRN Administration Pain Rated 7-10 Meropenem 1 gm in 100 mls @ 200 mls/hr 11/26/24 09:00 11/27/24 08:58 IVPB 12/02/24 17:29 Infused Q8H MARINA Infusion Sodium Chloride 1,000 mls @ 125 mls/hr 11/26/24 00:45 11/27/24 05:58 Normal Saline Iv IV CONT 125 mls/hr .Q8H MARINA Administration Ibuprofen 400 mg 11/26/24 12:00 11/27/24 06:00 Ibuprofen 400 Mg Tablet PO 400 mg Q6H MARINA Administration Losartan Potassium 50 mg 11/26/24 09:00 11/27/24 08:27 Losartan Potassium 50 Mg Tablet BY MOUTH 50 mg Q12HR MARINA Administration Nebivolol 10 mg 11/26/24 21:00 11/26/24 20:46 Nebivolol Hcl 5 Mg Tablet PO 10 mg HS MARINA Administration Ondansetron HCl 4 mg 11/26/24 00:42 Ondansetron Inj 4 Mg/2 Ml Vial IV PUSH Q4H PRN Nausea Tamsulosin HCl 0.4 mg 11/26/24 10:45 11/27/24 08:28 Tamsulosin Hcl 0.4 Mg Capsule PO 0.4 mg QAM MARINA Administration Radiology Results: ITS Impressions Abdomen/Pelvis CT 11/25/24 23:26 IMPRESSION: 1. Bilateral kidney stones. 2. Hepatomegaly with fat infiltration. 3. Left ovarian cyst. Labs Labs: Laboratory Results - last 24 hr 11/27/24 05:52 WBC 5.4 RBC 3.94 L Hgb 12.1 Hct 35.1 L MCV 89.1 MCH 30.7 MCHC 34.5 RDW 12.5 Plt Count 179 MPV 9.4 Immature Gran % (Auto) Not Reportable Neut % (Auto) Not Reportable Lymph % (Auto) Not Reportable [place]eman % (Auto) Not Reportable Eos % (Auto) Not Reportable Baso % (Auto) Not Reportable Lymph # (Auto) Not Reportable Hardeman # (Auto) Not Reportable Eos # (Auto) Not Reportable Baso # (Auto) Not Reportable Abs Immat Gran (auto) Not Reportable Absolute Neuts (auto) Not Reportable Absolute Nucleated RBC Not Reportable Total Counted 100 Neutrophils % (Manual) 51 Band Neutrophils % 0 Lymphocytes % (Manual) 40 Monocytes % (Manual) 7 Eosinophils % (Manual) 1 Basophils % (Manual) 1 Nucleated RBC % Not Reportable Abs Neuts (Manual) 2.75 Abs Lymphs (Manual) 2.16 Abs Monocytes (Manual) 0.37 Absolute Eos (Manual) 0.05 Abs Basophils (Manual) 0.05 Platelet Estimate Adequate Anisocytosis 1+ Schistocytes None seen Sodium 136 L Potassium 3.6 Chloride 107 Carbon Dioxide 24 Anion Gap 5 BUN 9 Creatinine 0.50 L Estim Creat Clear Calc 125 Estimated GFR > 60 Glucose 110 Calcium 8.1 L Quality VTE Prophylaxis VTE prophylaxis: mechanical ordered
[2024-11-27] MEDS: HYDROcodone/acetaminophen (*CRX) 5-325 MG TABLET 1 TAB PO (12:02)
[2024-11-27 14:00] VITALS: BP 139/85; PULSE 72; RESP 12; TEMP 36.6; O2SAT 96
--- NOTE | 2024-11-27 14:45 | P.CONUR_ITS ---
Assessment and Plan Assessment and plan (1) Urinary tract infection: Qualifiers: Urinary tract infection type: acute cystitis Hematuria presence: with hematuria Qualified Code(s): N30.01 - Acute cystitis with hematuria Code(s): N39.0 - Urinary tract infection, site not specified Status: Acute (2) Left flank pain: Code(s): R10.9 - Unspecified abdominal pain Status: Acute (3) Bilateral renal stones: Code(s): N20.0 - Calculus of kidney Status: Chronic Plan Multi-drug resistant E. coli UTI on IV meropenem, present on admission Bilateral small nonobstructing renal stones Low suspicion for pyelonephritis - Agree with culture-directed antibiotics for E. coli UTI - No indication for surgical intervention given afebrile status, normal renal function, and no ureteral abnormality on CT. - Urology service to follow peripherally. Please call with questions. - Follow-up in clinic as previously scheduled. Urology Consult Note HPI Date Seen: 11/27/24 Requesting Physician: Mike Samano MD Primary Care Provider: Lucas Carter DO Consult Narrative Reason for consult: Left flank pain, E.coli UTI Narrative: Renee Luke is a 44-year-old female with a history of recurrent urolithiasis admitted on 11/25/24 for left flank pain and E. coli UTI. She reports passing four stones since 10/12/24, three of which were surgically removed. She currently has one small stone in each kidney. She has presented to the ER nine times since 10/10/24 with urologic complaints, typically abdominal and flank pain. She was previously admitted on 11/14/24 for a left proximal ureteral calculus requiring cystoscopy, left retrograde pyelogram, left ureteroscopy with stone extraction, and left stent placement (removed by the patient at home on 11/16/24). She was also admitted on 10/21/24 for a right ureteral stone, which was treated with cystoscopy and right ureteroscopy with stone extraction. She reports being on antibiotics for the past month with persistent dysuria and flank pain. -PERTINENT LABS: 11/27/24 - WBC 5.4, HGB 12.1, Cr 0.5 11/25/24 - Urinalysis: 3+ blood, +nitrate, 2+ LE, 51-100 RBC, >100 WBC; Urine culture: E. coli (susceptibilities pending) 11/23/24 - Urine culture: E. coli (resistant to Unasyn, cefazolin, ceftriaxone, ciprofloxacin, levofloxacin, Bactrim) -PERTINENT IMAGIN11/25/24 CT ABD/PEL WO CON - Tiny stone in right kidney upper pole. Tiny stone in left kidney lower pole. No hydronephrosis. No ureteral stones. Review of Systems 2 Respiratory: Respiratory: Denies dyspnea Gastrointestinal: Gastrointestinal: Denies nausea and Denies vomiting Genitourinary: Genitourinary: Reports dysuria and Reports flank pain PMFSH Past Medical History Medical History Left ureteral stone Hypertension Gastroesophageal reflux disease Sleep paralysis, recurrent isolated Smoker Obesity Depression Multiple kidney stones Seasonal allergies Surgical History Surgical History H/O ureteroscopy 10/21/24 on the right due to proximal ureteral stone; Dr Gonzalez History of laparoscopic cholecystectomy on 04/25/23 PDC History of tubal ligation History of endometrial ablation (2009) History of hysterectomy (2016) History of open reduction and internal fixation (ORIF) procedure (2012) Left elbow. History of section 2000, 2001, 2009 Status post cystoscopy with ureteral stent placement Family History Family History Mother Diabetes mellitus Depression Alcoholism Father Hypertension Sibling Congenital heart disease Son Asthma Grandparent Diabetes mellitus Cerebrovascular accident Social History Social History Social History: Surrogate medical decision maker: Bang Luke, spouse. Code status: Full code. Smoking packs per day: 0.5 Smoking cigarettes per day: 10.0 Years smoked: 32 Smoking pack-years: 16.00 Smoking status: Current every day smoker Tobacco type: cigarettes Second hand tobacco smoke exposure: Yes Alcohol intake: never Alcohol use details: Social alcohol use in moderation. Substance use: never Substance use type: does not use Do You Feel Safe in your Home?: Yes Lack of Transportation: No Lack of Food: Never True Current Housing: I Have Housing Concerned About Future Housing: No Difficulty Paying Gas/Electric Bills: No Difficulty Paying for Meds: No Currently Unemployed: No Education: High School Diploma/GED Difficulty w/ Childcare or Family Care: No Living arrangements: with family Spiritual care concerns: No Meds Home Medications and Allergies Home Medications ?Medication ?Instructions ?Recorded ?Confirmed ?Type multivitamin 1 tablet PO DAILY 04/04/22 11/26/24 History ondansetron 4 mg disintegrating 4 mg PO Q8H #14 tabs 10/12/24 11/26/24 Rx tablet nebivolol 10 mg tablet (Bystolic) 10 mg PO DAILY 10/21/24 11/26/24 History acetaminophen 500 mg capsule 1,000 mg (2 x 500 mg) PO Q6H PRN 10/25/24 11/26/24 Rx pain #30 caps hydrocodone 5 mg-acetaminophen 325 1 tablet PO Q4H PRN Pain Rated 4-6 11/16/24 11/26/24 Rx mg tablet #12 tabs amlodipine 10 mg tablet See Rx Instructions .Route 11/23/24 11/26/24 Rx .COMPLEX #90 tabs hydrochlorothiazide 25 mg tablet See Rx Instructions .Route 11/23/24 11/26/24 Rx .COMPLEX #90 tabs losartan 50 mg tablet See Rx Instructions .Route 11/23/24 11/26/24 Rx .COMPLEX #180 tabs omeprazole 20 mg capsule,delayed 20 mg PO DAILY 11/23/24 11/26/24 History release tamsulosin 0.4 mg capsule 0.4 mg PO DAILY PRN urinary 11/26/24 11/26/24 History retention Allergies Allergy/AdvReac Type Severity Reaction Status Date / Time ketorolac (From Toradol) Allergy Headache,Rash, Verified 11/26/24 01:19 Swollen tongue tramadol AdvReac Mild VOMITING/HE Verified 11/26/24 01:19 ADACHE hydralazine AdvReac Headache Verified 11/26/24 01:19 Vital Signs Vital Signs - 24 hr 11/26/24 20:43 11/26/24 20:46 11/27/24 05:16 Temperature 97.6 F 97.8 F Pulse Rate 60 76 66 Respiratory Rate 16 16 Blood Pressure 130/85 128/77 Pulse Oximetry 97 98 Oxygen Delivery 11/27/24 08:30 11/27/24 14:00 Temperature 97.8 F Pulse Rate 72 Respiratory Rate 12 Blood Pressure 139/85 Pulse Oximetry 96 Oxygen Delivery Room Air Exam 2 Const: General: comfortable and no acute distress Resp: Effort & Inspection: normal respiratory effort GI: Inspection: non-distended : Other: Left flank tenderness Skin: General skin exam: normal color Psych: Speech and movement: Normal speech and movement present Affect: n ormal affect Results Labs 11/27/24 05:52 11/27/24 05:52 Labs: Short CBC 11/27/24 Range/Units 05:52 WBC 5.4 (4.5-10.0) K/mm3 Hgb 12.1 (12.0-15.0) g/dL Hct 35.1 L (37.0-47.0) % Plt Count 179 (150-375) k/mm3 BMP 11/27/24 05:52 Sodium 136 L Potassium 3.6 Chloride 107 Carbon Dioxide 24 BUN 9 Creatinine 0.50 L Glucose 110 Calcium 8.1 L
[2024-11-27 20:00] VITALS: PULSE 78; RESP 16; O2SAT 97
[2024-11-27 20:44] VITALS: PULSE 70
[2024-11-27] MEDS: NEBIVOLOL HCL 5 MG TABLET 10 MG PO (20:44)
[2024-11-27] MEDS: FAMOTIDINE 20 MG TABLET PO (20:45)
[2024-11-27 21:34] VITALS: BP 144/88; PULSE 78; RESP 16; TEMP 36.4; O2SAT 97
[2024-11-28] MEDS: MEROPENEM 1 GM/NS 100 ML 1 GM/100 ML BAG IVPB ×3 (00:01→17:03)
[2024-11-28] MEDS: HYDROmorphone HCL INJ (*CRX) 2 MG/ML VIAL 0.5 MG IV PUSH ×6 (04:06→21:36)
[2024-11-28 05:04] VITALS: BP 140/90; PULSE 63; RESP 14; TEMP 36.4; O2SAT 97
[2024-11-28 05:14] LABS: Basophils Percent Auto 0.7 % (0.2-1.2); Eosinophils Absolute Auto 0.2 K/mm3 (0-0.3); Eosinophils Percent Auto 3.3 % (0-4.4); Hematocrit 37.4 % (37.0-47.0); Hemoglobin 12.8 g/dL (12.0-15.0); Immature Granulocyte Absolute 0.01 K/mm3 (0.00-0.031); Immature Granulocyte Percent A 0.2 % (0-0.5); Lymphocytes Absolute Auto 2.14 K/mm3 (0.9-3.2); Lymphocytes Percent Auto 36.9 % (18.3-44.2); Mean Corpuscular HGB Conc 34.2 g/dl (32-36); Mean Corpuscular Hemoglobin 30.3 pg (26-34); Mean Corpuscular Volume 88.6 fl (80-100); Mean Platelet Volume 9.4 fl (7.4-10.4); Monocytes Absolute Auto 0.7 K/mm3 (0.1-0.6); Monocytes Percent Auto 11.4 % (2.6-8.5); Neutrophils Absolute Auto 2.8 K/mm3 (1.3-6.7); Neutrophils Percent Auto 47.5 % (45.5-73.1); Platelet Count Result 217 k/mm3 (150-375); Red Blood Count 4.22 M/mm3 (4.2-5.4); Red Cell Distribution Width 12.7 % (11.5-14.5); White Blood Count 5.8 K/mm3 (4.5-10.0)
[2024-11-28 05:23] LABS: Alanine Aminotransferase 69 U/L (6-35); Albumin Level 3.6 g/dL (3.5-5.1); Alkaline Phosphatase 71 U/L (38-126); Anion Gap 7 mmol/L (4-12); Aspartate Amino Transferase 46 U/L (14-36); Bilirubin,Total 0.2 mg/dL (0.2-1.3); Blood Urea Nitrogen 8 mg/dL (7-17); Calcium 8.4 mg/dL (8.4-10.2); Carbon Dioxide 26 mmol/L (22-30); Chloride 106 mmol/L (98-107); Estimated CRCL calculation 125 ml/min; Estimated Glomerular Filt Rate > 60; Glucose 83 mg/dL (65-110); Potassium 3.9 mmol/L (3.4-5.0); Sodium 139 mmol/L (137-145)
[2024-11-28] MEDS: IBUPROFEN 400 MG TABLET PO ×3 (05:41→17:03)
[2024-11-28] MEDS: SODIUM CHLORIDE 0.9% IV 1,000 ML 125 ML IV CONT ×2 (08:15→15:58)
[2024-11-28] MEDS: TAMSULOSIN HCL 0.4 MG CAPSULE PO (09:13)
[2024-11-28] MEDS: hydroCHLOROthiazide 25 MG TABLET BY MOUTH (09:13)
[2024-11-28] MEDS: ENOXAPARIN 40 MG/0.4 ML SYRINGE SUB-Q (09:13)
[2024-11-28] MEDS: LOSARTAN POTASSIUM 50 MG TABLET BY MOUTH ×2 (09:13→21:37)
[2024-11-28] MEDS: DOCUSATE SODIUM 100 MG CAPSULE PO (09:18)
[2024-11-28] MEDS: amLODIPine BESYLATE 10 MG TABLET BY MOUTH (09:54)
[2024-11-28 15:09] VITALS: BP 120/90; PULSE 67; RESP 16; TEMP 36.1; O2SAT 96
[2024-11-28 20:00] VITALS: PULSE 90; RESP 20; O2SAT 100
[2024-11-28 21:10] VITALS: BP 142/90; PULSE 66; RESP 20; TEMP 36.3; O2SAT 100
[2024-11-28 21:37] VITALS: PULSE 90
[2024-11-28] MEDS: NEBIVOLOL HCL 5 MG TABLET 10 MG PO (21:37)
[2024-11-28] MEDS: FAMOTIDINE 20 MG TABLET PO (21:37)
[2024-11-29] MEDS: IBUPROFEN 400 MG TABLET PO ×4 (00:01→17:58)
[2024-11-29] MEDS: MEROPENEM 1 GM/NS 100 ML 1 GM/100 ML BAG IVPB ×3 (00:01→17:59)
[2024-11-29] MEDS: SODIUM CHLORIDE 0.9% IV 1,000 ML 125 ML IV CONT ×2 (00:42→08:53)
[2024-11-29] MEDS: HYDROmorphone HCL INJ (*CRX) 2 MG/ML VIAL 0.5 MG IV PUSH ×7 (00:42→20:54)
[2024-11-29 05:40] VITALS: BP 146/79; PULSE 66; RESP 20; TEMP 36.4; O2SAT 99
--- NOTE | 2024-11-29 08:19 | P.PNIM_ITS ---
Progress Note: A&P Assessment and Plan (1) UTI (urinary tract infection): Qualifiers: Hematuria presence: with hematuria Urinary tract infection type: acute cystitis Qualified Code(s): N30.01 - Acute cystitis with hematuria Code(s): N39.0 - Urinary tract infection, site not specified Status: Acute Assessment and Plan: Meropenem 3/7 days 11/23 culture positive for E coli with sensitivity to meropenem Repeat culture and sensitivity pending IVF for hydration On tamsulosin Flomax (2) HTN (hypertension): Qualifiers: Hypertension type: primary hypertension Qualified Code(s): I10 - Essential (primary) hypertension Code(s): I10 - Essential (primary) hypertension Status: Acute Assessment and Plan: Restart home antihypertensives (3) Flank pain: Code(s): R10.9 - Unspecified abdominal pain Status: Acute Assessment and Plan: Bilateral nonobstructing small kidney stones Dilaudid, ibuprofen and aggressive fluid hydration Urology evaluated and no intervention needed Plan DVT prophylaxis on Sq Lovenox Subjective Date/time seen: 11/28/24 08:19 Interval history: Comfortable at bedside Review of Systems Review of Systems: 12 systems were reviewed and are negativ e except for as per HPI. Exam Narrative: General: well appearing, appears stated age. HEENT: normocephalic, atraumatic. Mucous membranes moist. EOMI, PERRLA, bilateral sclera anicteric, no conjunctival injection. Neck supple without JVD, lymphadenopathy, or bruit. Respiratory: clear to ascultation bilaterally. No rales/rhonic/wheezes. Cardiovascular: Regular rate and rhythm, normal S1-S2 upon ascultation. No murmurs, rubs, or clicks. PMI is nondisplaced, capillary refill less than 3 second. Abdomen: Soft, round, no pulsatile masses, nondistended and nontender. No rebound, no guarding. No CVA tenderness, no hepatosplenomegaly. Bowel sounds present to all four quadrants. No high pitch or tinkling sounds, resonant to percussion. Extremities: No cyanosis, clubbing, or edema present. Pulses are palpable 2/2. Active ROM to all four extremities. Neuro: Alert and orientated x 4. PERRLA. Cranial nerves 2-12 intact without focal deficit. Skin: Warm, dry, and intact, without rash, erythema, or lesion. Psych: pleasant, cooperative, normal speech, normal affect, no hallucinations, no dysarthia Objective Data Vital Signs Vital Signs: Vital Signs - 24 hr 11/28/24 15:09 11/28/24 20:00 11/28/24 21:10 Temperature 97.0 F L 97.3 F L Pulse Rate 67 90 66 Respiratory Rate 16 20 20 Blood Pressure 120/90 142/90 H Pulse Oximetry 96 100 100 Oxygen Delivery Room Air 11/28/24 21:37 11/29/24 05:40 Temperature 97.5 F L Pulse Rate 90 66 Respiratory Rate 20 Blood Pressure 146/79 H Pulse Oximetry 99 Oxygen Delivery Intake/Output Intake/Output: Intake & Output 11/26/24 11/27/24 11/28/24 11/29/24 23:59 23:59 23:59 23:59 Intake Total 7138.7 5260 4274.6 350 Output Total 100 Balance 7038.7 5260 4274.6 350 Meds/Results Medications: Active Medications Generic Name Dose Route Start Last Admin Trade Name Freq PRN Reason Stop Dose Admin Acetaminophen 650 mg 11/26/24 07:51 Acetaminophen 325 Mg Tablet PO Q4H PRN Mild Pain (1-3) or Fever Hydrocodone Bitart/Acetaminophen 1 tab 11/26/24 00:42 11/27/24 12:02 Hydrocodone/Acetaminophen (*Crx) 5-325 Mg Tablet PO 1 tab Q4H PRN Administration Pain Rated 4-6 Amlodipine Besylate 10 mg 11/26/24 09:00 11/28/24 09:54 Amlodipine Besylate 10 Mg Tablet BY MOUTH 10 mg DAILY MARINA Administration Docusate Sodium 100 mg 11/26/24 09:00 11/28/24 09:18 Docusate Sodium 100 Mg Capsule PO 100 mg DAILY MARINA Administration Enoxaparin Sodium 40 mg 11/26/24 09:00 11/28/24 09:13 Enoxaparin 40 Mg/0.4 Ml Syringe SUB-Q 40 mg DAILY MARINA Administration Famotidine 20 mg 11/26/24 21:00 11/28/24 21:37 Famotidine 20 Mg Tablet PO 20 mg BEDTIME MARINA Administration Hydrochlorothiazide 25 mg 11/26/24 09:00 11/28/24 09:13 Hydrochlorothiazide 25 Mg Tablet BY MOUTH 25 mg DAILY MARINA Administration Hydromorphone HCl 0.5 mg 11/28/24 03:56 11/29/24 05:51 Hydromorphone Hcl Inj (*Crx) 2 Mg/Ml Vial IV PUSH 0.5 mg Q3H PRN Administration Pain Rated 7-10 Meropenem 1 gm in 100 mls @ 200 mls/hr 11/26/24 09:00 11/29/24 00:01 IVPB 12/02/24 17:29 200 mls/hr Q8H MARINA Administration Sodium Chloride 1,000 mls @ 125 mls/hr 11/26/24 00:45 11/29/24 00:42 Normal Saline Iv IV CONT 125 mls/hr .Q8H MARINA Administration Ibuprofen 400 mg 11/26/24 12:00 11/29/24 05:51 Ibuprofen 400 Mg Tablet PO 400 mg Q6H MARINA Administration Losartan Potassium 50 mg 11/26/24 09:00 11/28/24 21:37 Losartan Potassium 50 Mg Tablet BY MOUTH 50 mg Q12HR MARINA Administration Nebivolol 10 mg 11/26/24 21:00 11/28/24 21:37 Nebivolol Hcl 5 Mg Tablet PO 10 mg HS MARINA Administration Ondansetron HCl 4 mg 11/26/24 00:42 Ondansetron Inj 4 Mg/2 Ml Vial IV PUSH Q4H PRN Nausea Tamsulosin HCl 0.4 mg 11/26/24 10:45 11/28/24 09:13 Tamsulosin Hcl 0.4 Mg Capsule PO 0.4 mg QAM MARINA Administration Radiology Results: ITS Impressions Abdomen/Pelvis CT 11/25/24 23:26 IMPRESSION: 1. Bilateral kidney stones. 2. Hepatomegaly with fat infiltration. 3. Left ovarian cyst. Quality VTE Prophylaxis VTE prophylaxis: mechanical ordered
[2024-11-29] MEDS: ENOXAPARIN 40 MG/0.4 ML SYRINGE SUB-Q (08:54)
[2024-11-29] MEDS: TAMSULOSIN HCL 0.4 MG CAPSULE PO (08:54)
[2024-11-29] MEDS: amLODIPine BESYLATE 10 MG TABLET BY MOUTH (08:54)
[2024-11-29] MEDS: LOSARTAN POTASSIUM 50 MG TABLET BY MOUTH ×2 (08:54→20:54)
[2024-11-29] MEDS: hydroCHLOROthiazide 25 MG TABLET BY MOUTH (08:54)
--- NOTE | 2024-11-29 11:40 | P.PNIM_ITS ---
Progress Note: A&P Assessment and Plan (1) UTI (urinary tract infection): Qualifiers: Hematuria presence: with hematuria Urinary tract infection type: acute cystitis Qualified Code(s): N30.01 - Acute cystitis with hematuria Code(s): N39.0 - Urinary tract infection, site not specified Status: Acute Assessment and Plan: Meropenem 4/7 days 11/23 culture positive for E coli with sensitivity to meropenem Repeat culture and sensitivity pending s/p IVF On tamsulosin Flomax (2) HTN (hypertension): Qualifiers: Hypertension type: primary hypertension Qualified Code(s): I10 - Essential (primary) hypertension Code(s): I10 - Essential (primary) hypertension Status: Acute Assessment and Plan: Restart home antihypertensives (3) Flank pain: Code(s): R10.9 - Unspecified abdominal pain Status: Acute Assessment and Plan: Bilateral nonobstructing small kidney stones Dilaudid, ibuprofen and aggressive fluid hydration Urology evaluated and no intervention needed Plan DVT prophylaxis on Sq Lovenox Subjective Date/time seen: 11/29/24 11:40 Interval history: Comfortable at bedside Review of Systems Review of Systems: 12 systems were reviewed and are negativ e except for as per HPI. Exam Narrative: General: well appearing, appears stated age. HEENT: normocephalic, atraumatic. Mucous membranes moist. EOMI, PERRLA, bilateral sclera anicteric, no conjunctival injection. Neck supple without JVD, lymphadenopathy, or bruit. Respiratory: clear to ascultation bilaterally. No rales/rhonic/wheezes. Cardiovascular: Regular rate and rhythm, normal S1-S2 upon ascultation. No murmurs, rubs, or clicks. PMI is nondisplaced, capillary refill less than 3 second. Abdomen: Soft, round, no pulsatile masses, nondistended and nontender. No rebound, no guarding. No CVA tenderness, no hepatosplenomegaly. Bowel sounds present to all four quadrants. No high pitch or tinkling sounds, resonant to percussion. Extremities: No cyanosis, clubbing, or edema present. Pulses are palpable 2/2. Active ROM to all four extremities. Neuro: Alert and orientated x 4. PERRLA. Cranial nerves 2-12 intact without focal deficit. Skin: Warm, dry, and intact, without rash, erythema, or lesion. Psych: pleasant, cooperative, normal speech, normal affect, no hallucinations, no dysarthia Objective Data Vital Signs Vital Signs: Vital Signs - 24 hr 11/28/24 15:09 11/28/24 20:00 11/28/24 21:10 Temperature 97.0 F L 97.3 F L Pulse Rate 67 90 66 Respiratory Rate 16 20 20 Blood Pressure 120/90 142/90 H Pulse Oximetry 96 100 100 Oxygen Delivery Room Air 11/28/24 21:37 11/29/24 05:40 Temperature 97.5 F L Pulse Rate 90 66 Respiratory Rate 20 Blood Pressure 146/79 H Pulse Oximetry 99 Oxygen Delivery Intake/Output Intake/Output: Intake & Output 11/26/24 11/27/24 11/28/24 11/29/24 23:59 23:59 23:59 23:59 Intake Total 7138.7 5260 4274.6 1790 Output Total 100 Balance 7038.7 5260 4274.6 1790 Meds/Results Medications: Active Medications Generic Name Dose Route Start Last Admin Trade Name Freq PRN Reason Stop Dose Admin Acetaminophen 650 mg 11/26/24 07:51 Acetaminophen 325 Mg Tablet PO Q4H PRN Mild Pain (1-3) or Fever Hydrocodone Bitart/Acetaminophen 1 tab 11/26/24 00:42 11/27/24 12:02 Hydrocodone/Acetaminophen (*Crx) 5-325 Mg Tablet PO 1 tab Q4H PRN Administration Pain Rated 4-6 Amlodipine Besylate 10 mg 11/26/24 09:00 11/29/24 08:54 Amlodipine Besylate 10 Mg Tablet BY MOUTH 10 mg DAILY MARINA Administration Docusate Sodium 100 mg 11/26/24 09:00 11/29/24 08:54 Docusate Sodium 100 Mg Capsule PO Not Given DAILY MARINA Enoxaparin Sodium 40 mg 11/26/24 09:00 11/29/24 08:54 Enoxaparin 40 Mg/0.4 Ml Syringe SUB-Q 40 mg DAILY MARINA Administration Famotidine 20 mg 11/26/24 21:00 11/28/24 21:37 Famotidine 20 Mg Tablet PO 20 mg BEDTIME MARINA Administration Hydrochlorothiazide 25 mg 11/26/24 09:00 11/29/24 08:54 Hydrochlorothiazide 25 Mg Tablet BY MOUTH 25 mg DAILY MARINA Administration Hydromorphone HCl 0.5 mg 11/28/24 03:56 11/29/24 08:56 Hydromorphone Hcl Inj (*Crx) 2 Mg/Ml Vial IV PUSH 0.5 mg Q3H PRN Administration Pain Rated 7-10 Meropenem 1 gm in 100 mls @ 200 mls/hr 11/26/24 09:00 11/29/24 09:25 IVPB 12/02/24 17:29 Infused Q8H MARINA Infusion Sodium Chloride 1,000 mls @ 125 mls/hr 11/26/24 00:45 11/29/24 08:53 Normal Saline Iv IV CONT 125 mls/hr .Q8H MARINA Administration Ibuprofen 400 mg 11/26/24 12:00 11/29/24 05:51 Ibuprofen 400 Mg Tablet PO 400 mg Q6H MARINA Administration Losartan Potassium 50 mg 11/26/24 09:00 11/29/24 08:54 Losartan Potassium 50 Mg Tablet BY MOUTH 50 mg Q12HR MARINA Administration Nebivolol 10 mg 11/26/24 21:00 11/28/24 21:37 Nebivolol Hcl 5 Mg Tablet PO 10 mg HS MARINA Administration Ondansetron HCl 4 mg 11/26/24 00:42 Ondansetron Inj 4 Mg/2 Ml Vial IV PUSH Q4H PRN Nausea Tamsulosin HCl 0.4 mg 11/26/24 10:45 11/29/24 08:54 Tamsulosin Hcl 0.4 Mg Capsule PO 0.4 mg QAM MARINA Administration Radiology Results: ITS Impressions Abdomen/Pelvis CT 11/25/24 23:26 IMPRESSION: 1. Bilateral kidney stones. 2. Hepatomegaly with fat infiltration. 3. Left ovarian cyst. Quality VTE Prophylaxis VTE prophylaxis: mechanical ordered
[2024-11-29 14:00] VITALS: BP 151/9; PULSE 65; RESP 18; TEMP 36.6; O2SAT 99
[2024-11-29 20:00] VITALS: PULSE 76; RESP 18; O2SAT 99
[2024-11-29 20:54] VITALS: PULSE 76
[2024-11-29] MEDS: NEBIVOLOL HCL 5 MG TABLET 10 MG PO (20:54)
[2024-11-29] MEDS: FAMOTIDINE 20 MG TABLET PO (20:54)
[2024-11-29 22:00] VITALS: BP 148/82; PULSE 66; RESP 18; TEMP 36.4; O2SAT 96
[2024-11-30] MEDS: HYDROmorphone HCL INJ (*CRX) 2 MG/ML VIAL 0.5 MG IV PUSH ×7 (03:40→21:09)
[2024-11-30 05:12] LABS: Basophils Absolute Auto 0.1 K/mm3 (0.0-0.1); Basophils Percent Auto 0.8 % (0.2-1.2); Eosinophils Absolute Auto 0.2 K/mm3 (0-0.3); Eosinophils Percent Auto 2.9 % (0-4.4); Hematocrit 36.7 % (37.0-47.0); Hemoglobin 12.5 g/dL (12.0-15.0); Immature Granulocyte Absolute 0.01 K/mm3 (0.00-0.031); Immature Granulocyte Percent A 0.2 % (0-0.5); Lymphocytes Absolute Auto 2.24 K/mm3 (0.9-3.2); Lymphocytes Percent Auto 36.1 % (18.3-44.2); Mean Corpuscular HGB Conc 34.1 g/dl (32-36); Mean Corpuscular Hemoglobin 30.6 pg (26-34); Mean Corpuscular Volume 89.7 fl (80-100); Mean Platelet Volume 9.4 fl (7.4-10.4); Monocytes Absolute Auto 0.8 K/mm3 (0.1-0.6); Monocytes Percent Auto 13.4 % (2.6-8.5); Neutrophils Absolute Auto 2.9 K/mm3 (1.3-6.7); Neutrophils Percent Auto 46.6 % (45.5-73.1); Platelet Count Result 205 k/mm3 (150-375); Red Blood Count 4.09 M/mm3 (4.2-5.4); Red Cell Distribution Width 12.8 % (11.5-14.5); White Blood Count 6.2 K/mm3 (4.5-10.0)
[2024-11-30 05:24] LABS: Alanine Aminotransferase 71 U/L (6-35); Albumin Level 3.7 g/dL (3.5-5.1); Alkaline Phosphatase 75 U/L (38-126); Anion Gap 9 mmol/L (4-12); Aspartate Amino Transferase 50 U/L (14-36); Bilirubin,Total 0.2 mg/dL (0.2-1.3); Blood Urea Nitrogen 12 mg/dL (7-17); Carbon Dioxide 25 mmol/L (22-30); Chloride 103 mmol/L (98-107); Estimated CRCL calculation 127 ml/min; Estimated Glomerular Filt Rate > 60; Glucose 86 mg/dL (65-110); Potassium 3.4 mmol/L (3.4-5.0); Sodium 137 mmol/L (137-145)
[2024-11-30] MEDS: IBUPROFEN 400 MG TABLET PO ×4 (05:56→17:04)
[2024-11-30 06:00] VITALS: BP 145/85; PULSE 61; RESP 18; TEMP 36.4; O2SAT 96
[2024-11-30] MEDS: LOSARTAN POTASSIUM 50 MG TABLET BY MOUTH ×2 (08:41→21:09)
[2024-11-30] MEDS: TAMSULOSIN HCL 0.4 MG CAPSULE PO (08:41)
[2024-11-30 08:42] VITALS: RESP 18; O2SAT 96
[2024-11-30] MEDS: DOCUSATE SODIUM 100 MG CAPSULE PO (08:42)
[2024-11-30] MEDS: MEROPENEM 1 GM/NS 100 ML 1 GM/100 ML BAG IVPB ×3 (08:42→16:29)
[2024-11-30] MEDS: hydroCHLOROthiazide 25 MG TABLET BY MOUTH (08:42)
[2024-11-30] MEDS: ENOXAPARIN 40 MG/0.4 ML SYRINGE SUB-Q (08:42)
[2024-11-30] MEDS: amLODIPine BESYLATE 10 MG TABLET BY MOUTH (08:42)
--- NOTE | 2024-11-30 11:32 | P.PNIM_ITS ---
Progress Note: A&P Assessment and Plan (1) UTI (urinary tract infection): Qualifiers: Hematuria presence: with hematuria Urinary tract infection type: acute cystitis Qualified Code(s): N30.01 - Acute cystitis with hematuria Code(s): N39.0 - Urinary tract infection, site not specified Status: Acute Assessment and Plan: Meropenem 5/7 days 11/23 culture positive for E coli with sensitivity to meropenem Repeat culture and sensitivity pending to complete antibiotics and discharge on 12/02 (2) HTN (hypertension): Qualifiers: Hypertension type: primary hypertension Qualified Code(s): I10 - Essential (primary) hypertension Code(s): I10 - Essential (primary) hypertension Status: Acute Assessment and Plan: Restart home antihypertensives (3) Flank pain: Code(s): R10.9 - Unspecified abdominal pain Status: Acute Assessment and Plan: Bilateral nonobstructing small kidney stones Dilaudid, ibuprofen and aggressive fluid hydration Urology evaluated and no intervention needed Plan DVT prophylaxis on Sq Lovenox awaiting antibiotics completion of abx on 12/02 for discharge Subjective Date/time seen: 11/30/24 11:32 Interval history: Comfortable at bedside Review of Systems Review of Systems: 12 systems were reviewed and are negativ e except for as per HPI. Exam Narrative: General: well appearing, appears stated age. HEENT: normocephalic, atraumatic. Mucous membranes moist. EOMI, PERRLA, bilateral sclera anicteric, no conjunctival injection. Neck supple without JVD, lymphadenopathy, or bruit. Respiratory: clear to ascultation bilaterally. No rales/rhonic/wheezes. Cardiovascular: Regular rate and rhythm, normal S1-S2 upon ascultation. No murmurs, rubs, or clicks. PMI is nondisplaced, capillary refill less than 3 second. Abdomen: Soft, round, no pulsatile masses, nondistended and nontender. No rebound, no guarding. No CVA tenderness, no hepatosplenomegaly. Bowel sounds present to all four quadrants. No high pitch or tinkling sounds, resonant to percussion. Extremities: No cyanosis, clubbing, or edema present. Pulses are palpable 2/2. Active ROM to all four extremities. Neuro: Alert and orientated x 4. PERRLA. Cranial nerves 2-12 intact without focal deficit. Skin: Warm, dry, and intact, without rash, erythema, or lesion. Psych: pleasant, cooperative, normal speech, normal affect, no hallucinations, no dysarthia Objective Data Vital Signs Vital Signs: Vital Signs - 24 hr 11/29/24 14:00 11/29/24 20:00 11/29/24 20:54 Temperature 97.9 F Pulse Rate 65 76 76 Respiratory Rate 18 18 Blood Pressure 151/9 H Pulse Oximetry 99 99 Oxygen Delivery Room Air 11/29/24 22:00 11/30/24 06:00 11/30/24 08:42 Temperature 97.6 F 97.5 F L Pulse Rate 66 61 Respiratory Rate 18 18 18 Blood Pressure 148/82 H 145/85 H Pulse Oximetry 96 96 96 Oxygen Delivery Room Air Intake/Output Intake/Output: Intake & Output 11/27/24 11/28/24 11/29/24 11/30/24 23:59 23:59 23:59 23:59 Intake Total 5260 4274.6 3550 440.0 Output Total 0 Balance 5260 4274.6 3550 440.0 Meds/Results Medications: Active Medications Generic Name Dose Route Start Last Admin Trade Name Freq PRN Reason Stop Dose Admin Acetaminophen 650 mg 11/26/24 07:51 Acetaminophen 325 Mg Tablet PO Q4H PRN Mild Pain (1-3) or Fever Hydrocodone Bitart/Acetaminophen 1 tab 11/26/24 00:42 11/27/24 12:02 Hydrocodone/Acetaminophen (*Crx) 5-325 Mg Tablet PO 1 tab Q4H PRN Administration Pain Rated 4-6 Amlodipine Besylate 10 mg 11/26/24 09:00 11/30/24 08:42 Amlodipine Besylate 10 Mg Tablet BY MOUTH 10 mg DAILY MARINA Administration Docusate Sodium 100 mg 11/26/24 09:00 11/30/24 08:42 Docusate Sodium 100 Mg Capsule PO 100 mg DAILY MARINA Administration Enoxaparin Sodium 40 mg 11/26/24 09:00 11/30/24 08:42 Enoxaparin 40 Mg/0.4 Ml Syringe SUB-Q 40 mg DAILY MARINA Administration Famotidine 20 mg 11/26/24 21:00 11/29/24 20:54 Famotidine 20 Mg Tablet PO 20 mg BEDTIME MARINA Administration Hydrochlorothiazide 25 mg 11/26/24 09:00 11/30/24 08:42 Hydrochlorothiazide 25 Mg Tablet BY MOUTH 25 mg DAILY MARINA Administration Hydromorphone HCl 0.5 mg 11/28/24 03:56 11/30/24 11:15 Hydromorphone Hcl Inj (*Crx) 2 Mg/Ml Vial IV PUSH 0.5 mg Q3H PRN Administration Pain Rated 7-10 Meropenem 1 gm in 100 mls @ 200 mls/hr 11/26/24 09:00 11/30/24 09:45 IVPB 12/02/24 17:29 Infused Q8H MARINA Infusion Ibuprofen 400 mg 11/26/24 12:00 11/30/24 11:16 Ibuprofen 400 Mg Tablet PO 400 mg Q6H MARINA Administration Losartan Potassium 50 mg 11/26/24 09:00 11/30/24 08:41 Losartan Potassium 50 Mg Tablet BY MOUTH 50 mg Q12HR MARINA Administration Nebivolol 10 mg 11/26/24 21:00 11/29/24 20:54 Nebivolol Hcl 5 Mg Tablet PO 10 mg HS MARINA Administration Ondansetron HCl 4 mg 11/26/24 00:42 Ondansetron Inj 4 Mg/2 Ml Vial IV PUSH Q4H PRN Nausea Tamsulosin HCl 0.4 mg 11/26/24 10:45 11/30/24 08:41 Tamsulosin Hcl 0.4 Mg Capsule PO 0.4 mg QAM MARINA Administration Radiology Results: ITS Impressions Abdomen/Pelvis CT 11/25/24 23:26 IMPRESSION: 1. Bilateral kidney stones. 2. Hepatomegaly with fat infiltration. 3. Left ovarian cyst. Labs Labs: Laboratory Results - last 24 hr 11/30/24 04:37 WBC 6.2 RBC 4.09 L Hgb 12.5 Hct 36.7 L MCV 89.7 MCH 30.6 MCHC 34.1 RDW 12.8 Plt Count 205 MPV 9.4 Immature Gran % (Auto) 0.2 Neut % (Auto) 46.6 Lymph % (Auto) 36.1 [place] % (Auto) 13.4 H Eos % (Auto) 2.9 Baso % (Auto) 0.8 Lymph # (Auto) 2.24 [place] # (Auto) 0.8 H Eos # (Auto) 0.2 Baso # (Auto) 0.1 Abs Immat Gran (auto) 0.01 Absolute Neuts (auto) 2.9 Absolute Nucleated RBC 0.000 Nucleated RBC % 0.0 Sodium 137 Potassium 3.4 Chloride 103 Carbon Dioxide 25 Anion Gap 9 BUN 12 Creatinine 0.49 L Estim Creat Clear Calc 127 Estimated GFR > 60 Glucose 86 Calcium 9.0 Magnesium 2.0 Total Bilirubin 0.2 AST 50 H ALT 71 H Alkaline Phosphatase 75 Total Protein 7.0 Albumin 3.7 Quality VTE Prophylaxis VTE prophylaxis: mechanical ordered
[2024-11-30 13:39] VITALS: BP 142/90; PULSE 72; RESP 16; TEMP 37.1; O2SAT 99
[2024-11-30] MEDS: ONDANSETRON INJ 4 MG/2 ML VIAL IV PUSH (14:25)
[2024-11-30] MEDS: CALCIUM CARBONATE (TUMS) 500 MG (200 MG ELEMENTAL) PO (17:04)
[2024-11-30 20:00] VITALS: PULSE 61; RESP 20; O2SAT 97
[2024-11-30] MEDS: FAMOTIDINE 20 MG TABLET PO (21:08)
[2024-11-30 21:09] VITALS: PULSE 66
[2024-11-30] MEDS: NEBIVOLOL HCL 5 MG TABLET 10 MG PO (21:09)
[2024-11-30 21:36] VITALS: BP 108/75; PULSE 61; RESP 20; TEMP 36.5; O2SAT 97
[2024-12-01] MEDS: HYDROmorphone HCL INJ (*CRX) 2 MG/ML VIAL 0.5 MG IV PUSH ×7 (00:03→23:55)
[2024-12-01] MEDS: IBUPROFEN 400 MG TABLET PO ×5 (00:03→23:55)
[2024-12-01] MEDS: MEROPENEM 1 GM/NS 100 ML 1 GM/100 ML BAG IVPB ×4 (00:03→23:57)
[2024-12-01 04:52] VITALS: BP 124/80; PULSE 61; RESP 20; TEMP 36.6; O2SAT 98
--- NOTE | 2024-12-01 09:00 | P.PNIM_ITS ---
Progress Note: A&P Assessment and Plan (1) UTI (urinary tract infection): Qualifiers: Hematuria presence: with hematuria Urinary tract infection type: acute cystitis Qualified Code(s): N30.01 - Acute cystitis with hematuria Code(s): N39.0 - Urinary tract infection, site not specified Status: Acute Assessment and Plan: Meropenem 5/7 days 11/23 culture positive for E coli with sensitivity to meropenem Repeat culture and sensitivity pending to complete antibiotics and discharge on 12/02 (2) HTN (hypertension): Qualifiers: Hypertension type: primary hypertension Qualified Code(s): I10 - Essential (primary) hypertension Code(s): I10 - Essential (primary) hypertension Status: Acute Assessment and Plan: Restart home antihypertensives (3) Flank pain: Code(s): R10.9 - Unspecified abdominal pain Status: Acute Assessment and Plan: Bilateral nonobstructing small kidney stones Dilaudid, ibuprofen and aggressive fluid hydration Urology evaluated and no intervention needed Plan DVT prophylaxis on Sq Lovenox awaiting antibiotics completion of abx on 12/02 for discharge Subjective Date/time seen: 12/01/24 09:00 Interval history: Feeling comfortable. Complains of mild dysuria. Review of Systems Review of Systems: 12 systems were reviewed and are negativ e except for as per HPI. Exam Narrative: General: well appearing, appears stated age. HEENT: normocephalic, atraumatic. Mucous membranes moist. EOMI, PERRLA, bilateral sclera anicteric, no conjunctival injection. Neck supple without JVD, lymphadenopathy, or bruit. Respiratory: clear to ascultation bilaterally. No rales/rhonic/wheezes. Cardiovascular: Regular rate and rhythm, normal S1-S2 upon ascultation. No murm urs, rubs, or clicks. PMI is nondisplaced, capillary refill less than 3 second. Abdomen: Soft, round, no pulsatile masses, nondistended and nontender. No rebound, no guarding. No CVA tenderness, no hepatosplenomegaly. Bowel sounds present to all four quadrants. No high pitch or tinkling sounds, resonant to percussion. Extremities: No cyanosis, clubbing, or edema present. Pulses are palpable 2/2. Active ROM to all four extremities. Neuro: Alert and orientated x 4. PERRLA. Cranial nerves 2-12 intact without focal deficit. Skin: Warm, dry, and intact, without rash, erythema, or lesion. Psych: pleasant, cooperative, normal speech, normal affect, no hallucinations, no dysarthia Objective Data Vital Signs Vital Signs: Vital Signs - 24 hr 11/30/24 13:39 11/30/24 20:00 11/30/24 21:09 Temperature 98.8 F Pulse Rate 72 61 66 Respiratory Rate 16 20 Blood Pressure 142/90 H Pulse Oximetry 99 97 Oxygen Delivery Room Air 11/30/24 21:36 12/01/24 04:52 Temperature 97.7 F 97.8 F Pulse Rate 61 61 Respiratory Rate 20 20 Blood Pressure 108/75 124/80 Pulse Oximetry 97 98 Oxygen Delivery Intake/Output Intake/Output: Intake & Output 11/28/24 11/29/24 11/30/24 12/01/24 23:59 23:59 23:59 23:59 Intake Total 4274.6 3550 1570.0 510 Output Total 0 Balance 4274.6 3550 1570.0 510 Meds/Results Medications: Active Medications Generic Name Dose Route Start Last Admin Trade Name Freq PRN Reason Stop Dose Admin Acetaminophen 650 mg 11/26/24 07:51 Acetaminophen 325 Mg Tablet PO Q4H PRN Mild Pain (1-3) or Fever Hydrocodone Bitart/Acetaminophen 1 tab 11/26/24 00:42 11/27/24 12:02 Hydrocodone/Acetaminophen (*Crx) 5-325 Mg Tablet PO 1 tab Q4H PRN Administration Pain Rated 4-6 Amlodipine Besylate 10 mg 11/26/24 09:00 11/30/24 08:42 Amlodipine Besylate 10 Mg Tablet BY MOUTH 10 mg DAILY MARINA Administration Calcium Carbonate 200 mg 11/30/24 16:39 11/30/24 17:04 Calcium Carbonate (Tums) 500 Mg (200 Mg Elemental) PO 200 mg Q6H PRN Administration Indigestion Docusate Sodium 100 mg 11/26/24 09:00 11/30/24 08:42 Docusate Sodium 100 Mg Capsule PO 100 mg DAILY MARINA Administration Enoxaparin Sodium 40 mg 11/26/24 09:00 11/30/24 08:42 Enoxaparin 40 Mg/0.4 Ml Syringe SUB-Q 40 mg DAILY MARINA Administration Famotidine 20 mg 11/26/24 21:00 11/30/24 21:08 Famotidine 20 Mg Tablet PO 20 mg BEDTIME MARINA Administration Hydrochlorothiazide 25 mg 11/26/24 09:00 11/30/24 08:42 Hydrochlorothiazide 25 Mg Tablet BY MOUTH 25 mg DAILY MARINA Administration Hydromorphone HCl 0.5 mg 11/28/24 03:56 12/01/24 05:17 Hydromorphone Hcl Inj (*Crx) 2 Mg/Ml Vial IV PUSH 0.5 mg Q3H PRN Administration Pain Rated 7-10 Meropenem 1 gm in 100 mls @ 200 mls/hr 11/26/24 09:00 12/01/24 00:33 IVPB 12/02/24 17:29 Infused Q8H MARINA Infusion Ibuprofen 400 mg 11/26/24 12:00 12/01/24 05:17 Ibuprofen 400 Mg Tablet PO 400 mg Q6H MARINA Administration Losartan Potassium 50 mg 11/26/24 09:00 11/30/24 21:09 Losartan Potassium 50 Mg Tablet BY MOUTH 50 mg Q12HR MARINA Administration Nebivolol 10 mg 11/26/24 21:00 11/30/24 21:09 Nebivolol Hcl 5 Mg Tablet PO 10 mg HS MARINA Administration Ondansetron HCl 4 mg 11/26/24 00:42 11/30/24 14:25 Ondansetron Inj 4 Mg/2 Ml Vial IV PUSH 4 mg Q4H PRN Administration Nausea Tamsulosin HCl 0.4 mg 11/26/24 10:45 11/30/24 08:41 Tamsulosin Hcl 0.4 Mg Capsule PO 0.4 mg QAM MARINA Administration Radiology Results: ITS Impressions Abdomen/Pelvis CT 11/25/24 23:26 IMPRESSION: 1. Bilateral kidney stones. 2. Hepatomegaly with fat infiltration. 3. Left ovarian cyst. Quality VTE Prophylaxis VTE prophylaxis: mechanical ordered Hospitalist [facility] Advance Care Plan I have confirmed that the patient's Advanced Care Plan is present, code status is documented, or surrogate decision maker is listed in patient medical record.: Yes Medication Reconciliation I have utilized all available resources to obtain, update and review the patients current medications (includes all prescriptions, OTC, herbals, cannabis, and nutritional supplements).: Yes
[2024-12-01] MEDS: TAMSULOSIN HCL 0.4 MG CAPSULE PO (09:12)
[2024-12-01] MEDS: ENOXAPARIN 40 MG/0.4 ML SYRINGE SUB-Q (09:12)
[2024-12-01] MEDS: CALCIUM CARBONATE (TUMS) 500 MG (200 MG ELEMENTAL) PO (09:12)
[2024-12-01 09:13] VITALS: RESP 20; O2SAT 98
[2024-12-01] MEDS: amLODIPine BESYLATE 10 MG TABLET BY MOUTH (09:13)
[2024-12-01] MEDS: hydroCHLOROthiazide 25 MG TABLET BY MOUTH (09:13)
[2024-12-01] MEDS: LOSARTAN POTASSIUM 50 MG TABLET BY MOUTH ×2 (09:13→20:53)
[2024-12-01 14:00] VITALS: BP 118/74; PULSE 66; RESP 18; TEMP 36.4; O2SAT 97
[2024-12-01 20:52] VITALS: BP 144/96; PULSE 72; RESP 16; TEMP 36.2; O2SAT 99
[2024-12-01] MEDS: NEBIVOLOL HCL 5 MG TABLET 10 MG PO (20:53)
[2024-12-01] MEDS: FAMOTIDINE 20 MG TABLET PO (20:53)
[2024-12-02] MEDS: HYDROmorphone HCL INJ (*CRX) 2 MG/ML VIAL 0.5 MG IV PUSH ×2 (04:02→06:56)
[2024-12-02 05:07] VITALS: BP 94/54; PULSE 56; RESP 18; TEMP 36.5; O2SAT 98
[2024-12-02 05:41] LABS: Hematocrit 40.9 % (37.0-47.0); Hemoglobin 13.9 g/dL (12.0-15.0); Mean Corpuscular Hemoglobin 30.3 pg (26-34); Mean Corpuscular Volume 89.1 fl (80-100); Mean Platelet Volume 9.1 fl (7.4-10.4); Platelet Count Result 209 k/mm3 (150-375); Red Blood Count 4.59 M/mm3 (4.2-5.4); Red Cell Distribution Width 12.7 % (11.5-14.5); White Blood Count 6.4 K/mm3 (4.5-10.0)
[2024-12-02] MEDS: IBUPROFEN 400 MG TABLET PO ×2 (05:44→12:05)
[2024-12-02] MEDS: HYDROcodone/acetaminophen (*CRX) 5-325 MG TABLET 1 TAB PO ×3 (05:54→14:37)
[2024-12-02 05:59] LABS: Alanine Aminotransferase 90 U/L (6-35); Alkaline Phosphatase 75 U/L (38-126); Anion Gap 6 mmol/L (4-12); Aspartate Amino Transferase 54 U/L (14-36); Bilirubin,Total 0.3 mg/dL (0.2-1.3); Blood Urea Nitrogen 16 mg/dL (7-17); Calcium 9.1 mg/dL (8.4-10.2); Carbon Dioxide 29 mmol/L (22-30); Chloride 102 mmol/L (98-107); Estimated CRCL calculation 118 ml/min; Estimated Glomerular Filt Rate > 60; Glucose 96 mg/dL (65-110); Potassium 4.3 mmol/L (3.4-5.0); Sodium 137 mmol/L (137-145)
[2024-12-02 08:34] VITALS: BP 114/78
[2024-12-02] MEDS: LOSARTAN POTASSIUM 50 MG TABLET BY MOUTH (08:38)
[2024-12-02] MEDS: hydroCHLOROthiazide 25 MG TABLET BY MOUTH (08:38)
[2024-12-02] MEDS: ENOXAPARIN 40 MG/0.4 ML SYRINGE SUB-Q (08:38)
[2024-12-02] MEDS: amLODIPine BESYLATE 10 MG TABLET BY MOUTH (08:38)
[2024-12-02] MEDS: TAMSULOSIN HCL 0.4 MG CAPSULE PO (08:38)
[2024-12-02] MEDS: MEROPENEM 1 GM/NS 100 ML 1 GM/100 ML BAG IVPB ×2 (08:39→14:37)
--- NOTE | 2024-12-02 09:09 | P.DS_ITS ---
DS: Admitting Diagnosis Discharge Date 12/02/2024 Admitting Diagnosis UTI DS: Discharge Diagnosis Discharge Diagnosis (1) UTI (urinary tract infection): Qualifiers: Hematuria presence: with hematuria Urinary tract infection type: acute cystitis Qualified Code(s): N30.01 - Acute cystitis with hematuria Code(s): N39.0 - Urinary tract infection, site not specified Status: Acute Assessment and Plan: Completed Meropenem Culture positive for E coli with sensitivity to meropenem (2) HTN (hypertension): Qualifiers: Hypertension type: primary hypertension Qualified Code(s): I10 - Essential (primary) hypertension Code(s): I10 - Essential (primary) hypertension Status: Acute Assessment and Plan: Restart home antihypertensives (3) Flank pain: Code(s): R10.9 - Unspecified abdominal pain Status: Acute Assessment and Plan: Bilateral nonobstructing small kidney stones Dilaudid, ibuprofen and aggressive fluid hydration Urology evaluated and no intervention needed Plan DVT prophylaxis on Sq Lovenox awaiting antibiotics completion of abx on 12/02 for discharge DS: Summary Hospital Course Hospital Course: 44-year-old female with past medical history of kidney stones and stents presents the hospital with left-sided flank pain. Patient states that over the last month she has had several procedures with stent placements and stone removals on bilateral kidneys. She states since then her kidneys and ureters have been very tender. Last night she had symptoms kidney stone pain and increasing UTI symptoms so she came to the emergency room. Was seen in the ED here on Saturday, diagnosed with pyelonephritis. Started on ciprofloxacin which she states did not help. Her CBC and BMP were within normal limits, UA shows cloudy with positive nitrates 2+ leukocyte esterase over 100 wbc's 4+ bacteria, CT of the abdomen pelvis showed bilateral kidney stones, hepatomegaly with fatty infiltrate, and left ovarian cyst, which all have previously been seen on CTs. Patient had a culture and sensitivity of her UA on 11/23/2024 the was sensitive to cefepime, meropenem and Zosyn. She was started on meropenem in the ED and given a L bolus of fluid. In regards to UTI.Completed Meropenem .Culture positive for E coli with sensitivity to meropenem. As per urology:She reports passing four stones since 10/12/24, three of which were surgically removed. She currently has one small stone in each kidney. She has presented to the ER nine times since 10/10/24 with urologic complaints, typically abdominal and flank pain. She was previously admitted on 11/14/24 for a left proximal ureteral calculus requiring cystoscopy, left retrograde pyelogram, left ureteroscopy with stone extraction, and left stent placement (removed by the patient at home on 11/16/24). She was also admitted on 10/21/24 for a right ureteral stone, which was treated with cystoscopy and right ureteroscopy with stone extraction. She reports being on antibiotics for the past month with persistent dysuria and flank pain. Urology indicates no surgical intervention at this admission. Status at Discharge Cognitive/behavioral status at discharge: Stable Time Spent with Patient Time attestation: Total time spent providing and/or coordinating discharge services: 45 minute Exam Narrative: General: well appearing, appears stated age. HEENT: normocephalic, atraumatic. Mucous membranes moist. EOMI, PERRLA, bilateral sclera anicteric, no conjunctival injection. Neck supple without JVD, lymphadenopathy, or bruit. Respiratory: clear to ascultation bilaterally. No rales/rhonic/wheezes. Cardiovascular: Regular rate and rhythm, normal S1-S2 upon ascultation. No murmurs, rubs, or clicks. PMI is nondisplaced, capillary refill less than 3 second. Abdomen: Soft, round, no pulsatile masses, nondistended and nontender. No rebound, no guarding. No CVA tenderness, no hepatosplenomegaly. Bowel sounds present to all four quadrants. No high pitch or tinkling sounds, resonant to percussion. Extremities: No cyanosis, clubbing, or edema present. Pulses are palpable 2/2. Active ROM to all four extremities. Neuro: Alert and orientated x 4. PERRLA. Cranial nerves 2-12 intact without focal deficit. Skin: Warm, dry, and intact, without rash, erythema, or lesion. Psych: pleasant, cooperative, normal speech, normal affect, no hallucinations, n o dysarthia DS: Data Data Completed and Pending Labs on day of discharge: Labs from last 24 hours 12/02/24 05:32 WBC 6.4 RBC 4.59 Hgb 13.9 Hct 40.9 MCV 89.1 MCH 30.3 MCHC 34.0 RDW 12.7 Plt Count 209 MPV 9.1 Sodium 137 Potassium 4.3 Chloride 102 Carbon Dioxide 29 Anion Gap 6 BUN 16 Creatinine 0.53 L Estim Creat Clear Calc 118 Estimated GFR > 60 Glucose 96 Calcium 9.1 Total Bilirubin 0.3 AST 54 H ALT 90 H Alkaline Phosphatase 75 Total Protein 7.0 Albumin 4.0 Discharge Plan Discharge Attending physician on discharge: Yaya Chan Consulting providers: Maximino Gonzalez Discharging Clinician: Yaya Chan Anticipated Discharge Date/Time: 12/02/24 09:19 Patient Disposition: Home Activity: as tolerated Diet: regular Discharge Instructions: Check blood pressure 1 to 2 times a day. Record and bring into your doctor for review. Call your doctor if your blood pressure is greater than 180/110 or less than 90/45. Walk with cane or other assist device. Take precautions to avoid falls. Rise slowly from a lying or sitting position. Pause before standing or walking. Contact your doctor or call 911 and come to the Emergency Room if you have any type of trauma, lightheadedness with standing or other worrisome symptoms. Avoid NSAIDs (ibuprofen, naproxen, Aleve). Tylenol is safe to take. Follow-up with your primary care provider in 1-2 weeks. Please call for appointment. Follow-up with Urology in 2-4 weeks. Please call for an appointment. Thank you for using [facility] for your health care needs. Patient Instructions: Antibiotic Form Patient Language: Belarusian Stand Alone Forms: General Discharge Information Follow-up/Referrals: Maximino Gonzalez MD [Physician] - Lucsa Carter, [Primary Care Provider] - Discharge Medications: New docusate sodium 100 mg Capsule 100 mg PO DAILY Qty: 30 0RF hydrocodone-acetaminophen 5-325 mg tablet 1 tablet PO DAILY PRN (Reason: pain) Qty: 10 0RF Continued multivitamin Tablet 1 tablet PO DAILY ondansetron 4 mg tablet,disintegrating 4 mg PO Q8H Qty: 14 0RF nebivolol [Bystolic] 10 mg tablet 10 mg PO DAILY acetaminophen 500 mg capsule 1,000 mg PO Q6H PRN (Reason: pain) Qty: 30 0RF hydrocodone-acetaminophen 5-325 mg Tablet 1 tablet PO Q4H PRN (Reason: Pain Rated 4-6) Qty: 12 0RF tamsulosin 0.4 mg capsule 0.4 mg PO DAILY PRN (Reason: urinary retention) Rx Instructions: kidney stones omeprazole 20 mg capsule,delayed release(DR/EC) 20 mg PO DAILY amlodipine 10 mg tablet See Rx Instructions .ROUTE .COMPLEX Qty: 90 0RF Dose Instruction: TAKE 1 TABLET BY MOUTH DAILY Rx Instructions: TAKE 1 TABLET BY MOUTH DAILY losartan 50 mg tablet See Rx Instructions .ROUTE .COMPLEX Qty: 180 0RF Dose Instruction: TAKE 1 TABLET BY MOUTH TWICE DAILY Rx Instructions: TAKE 1 TABLET BY MOUTH TWICE DAILY hydrochlorothiazide 25 mg tablet See Rx Instructions .ROUTE .COMPLEX Qty: 90 0RF Dose Instruction: TAKE 1 TABLET BY MOUTH EVERY MORNING Rx Instructions: TAKE 1 TABLET BY MOUTH EVERY MORNING Date of admission: 11/28/24 13:12 Primary Care Provider: Lucas Carter Admitting Provider: Kim Zheng Attending physician on admission: Mike Samano Condition: Stable
== END 2024-12-02 15:50 | disposition home or self-care (01) | DRG 463 ==
LOC: ANHED 11-26 00:50 → ANH2MED 11-26 09:12
PROVIDERS: Emergency Medicine; Internal Medicine; Nurse Practitioner Gerontology; Admitting Provider Internal Medicine; Emergency Provider Physician Assistant; PCP Internal Medicine; Visit Provider General Practice
DX: N39.0 Urinary tract infection, site not specified (principal); N20.0 Calculus of kidney; I10 Essential (primary) hypertension; K21.9 Gastro-esophageal reflux disease without esophagitis; F32.A Depression, unspecified; F17.210 Nicotine dependence, cigarettes, uncomplicated; Z87.442 Personal history of urinary calculi
CPT/HCPCS: 36415; 74176; 80048; 80053; 81001; 83735; 85025; 85027; 87086; 87186; 96360; 96361; 96365; 96366; 96374; 96375; 96376; 99285; A9270; G0378; J1171; J1650; J2185; J2270; J2405; J7030

== ENCOUNTER 2024-12-09 14:57 | Outpatient (CLI) | payer OTHER, SELFPAY ==
--- OUTSIDE RECORDS SUMMARY | 2024-12-09 15:58 | XMS_ITS | Clinical Summary ---
Author Organization [facility] Address [address] [place] [address] Care Team Providers Care Associate Relations Specialist Name Role Phone Damian Sadler MD Primary Care Provider [phone] Source Comments [facility],non-owned Affiliates and Associated Physician Practices is amultiple site organization consisting of ambulatory clinics and hospital sitesin [place], [place], [place] and [place]. This disclosure is being madepursuant to the Care Everywhere program and may not contain all information available regarding this patient. 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 Gender Identity Not on file Sexual Orientation [...] Comment [facility] [address] [id number] us Nancy Cotto MD LAB - CHEMISTRY ORDERABLES Final Result [facility] INSURANCE BILL [address] [place] [address] * (ABNORMAL) COMPREHENSIVE METABOLIC PANEL (02/03/2024 1:03 AM [facility]) BUN 9 7 - 26 mg/dL 02/03/2024 1:45 AM [facility] Creatinine 0.64 0.56 - 0.96 mg/dL 02/03/2024 1:45 AM [facility] Sodium 139 136 - 145 mmol/L 02/03/2024 1:45 AM [facility] Potassium 3.4(L) 3.5 - 4.5 mmol/L 02/03/2024 1:45 AM [facility] Chloride 107 98 - 107 mmol/L 02/03/2024 1:45 AM [facility] CO2 21(L) 22 - 29 mmol/L 02/03/2024 1:45 AM [facility] Glucose 78 70 - 115 mg/dL 02/03/2024 1:45 AM [facility] Calcium 9.9 8.4 - 10.2 mg/dL 02/03/2024 1:45 AM [facility] Protein Total 7.7 6.0 - 8.3 g/dL 02/03/2024 1:45 AM [facility] Albumin 4.4 3.4 - 5.0 g/dL 02/03/2024 1:45 AM [facility] Bilirubin Total 0.4 0.2 - 1.2 mg/dL 02/03/2024 1:45 AM [facility] Alkaline Phosphatase 81 40 - 150 U/L 02/03/2024 1:45 AM [facility] ALT 58(H) 5 - 55 U/L 02/03/2024 1:45 AM [facility] AST 33 5 - 34 U/L 02/03/2024 1:45 AM [facility] Anion Gap 11 6 - 16 02/03/2024 1:45 AM [facility] BUN/Creatinine Ratio 14 7 - 23 02/03/2024 1:45 AM [facility] Osmolality Calculated 286 275 - 295 mOsm/kg 02/03/2024 1:45 AM [facility] Albumin/Globulin Ratio 1.3 1.1 - 2.3 02/03/2024 1:45 AM T [facility] eGFR by CKD-EPI >90 >=90 mL/min/1.7 3 m2 02/03/2024 1:45 AM T [facility] Blood BLOOD SPECIMEN / Unknown Venipuncture / Unknown 02/03/2024 1:03 AM CDT 02/03/2024 1:17 AM CDT Kaylee Reyes MD LAB - CHEMISTRY ORDERABLES Fi nal Result [facility] [address] [place] [address], [place] [phone] from Last 3 Months or Most Recently Relevant to Health Maintenance Insurance [phone] (Work) [address] [place] [phone] MEDICAID - [place] SELF PAY NO INSURANCE Member Subscriber Plan / Payer (Ef fective for All Dates) Name:Tita Luke Member ID:Not on file Relation to Subscriber:Not on file Name:TITA LUKE Subscriber ID:Not on file (Home) Address: [address] [place] [phone] Payer ID:Not on file Group ID:Not on file Type:Self Pay Address: [facility] Care Teams Associate Relations Specialist Relationship Specialty Start Date End Date Damian Sadler MD PCP - General Internal Medicine 07/04/16
--- OUTSIDE RECORDS SUMMARY | 2024-12-09 15:58 | XMS_ITS | CONTINUITY OF CARE DOCUMENT ---
Author Name [email or web address] Address Unknown Organization [facility] Address [address] [place] [address] Phone [phone] Care Team Providers Care Memory Care Program Director Name Role Phone William CURIEL, Herlinda Unavailable SHAWNEE CURIEL, NABIL Schmidt Unavailable INSURANCE PROVIDERS Payer name Policy type / Coverage type Bj red republican ID [employer] MEDICA[employer] Medicaid [id number] [facility] [id number]
--- OUTSIDE RECORDS SUMMARY | 2024-12-09 15:58 | XMS_ITS | Clinical Summary ---
Author Organization [facility] Address [address] [place] [address] Phone Care Team Providers Care Meat Smoker Name Role Phone Unavailable Primary Care Provider [...] Care Team Description 11/13/2024 Travel 11/13/2024 Telephone [facility] [address] [place] [address] Carlyle aClderon MD 11/12/2024 Telephone [facility] [address] [place] [address] Carlyle Calderon MD from Last [...] Upcoming Encounters Date Type Department Care Team (Late st Contact Info) Description 01/13/2025 12:30 PM CDT Office Visit [facility] [address] [place] [address] Damian Diamond MD [address] [address] Health Maintenance Due Date Last Done Comments Hepatitis C Virus (HCV) Screening 1979 Mammogram 1979 TdaP Immunization 1979 Hepatitis B Immunization (1 of 3 - 19+ 3-dose series) 1998 Pneumococcal Immunization Combined (1 of 2 - PCV) 1998 Discussion re Starting/Frequency of Mammograms 2019 Colonoscopy 02/26/2024 Colorectal Cancer Screening 02/26/2024 SARS-COV-2 Immunization ( - season) 2024 Influenza Immunization (Seas on Ended) 2025 06/24/2015, 05/12/2015 Respiratory Syncytial Virus (RSV) Immunization (Adult) (1 - 1-dose 75+ series) 2054 Meningococcal Immunization (ACWY) Aged Out No longer eligible b ased on patient's age to complete this topic Rotavirus Immunization Aged Out No lo nger eligible based on patient's age to complete this topic Insurance MEDICAID [place]
--- OUTSIDE RECORDS SUMMARY | 2024-12-09 15:58 | XMS_ITS | Clinical Summary ---
Author Organization [facility] al Address [address] [place] [address] Care Team Providers Care Occupational Health Nurse Supervisor Name Role Phone Lucas Carter DO Primary Care Provider [phone]- [phone] Allergies Active Allergy Reactions Criticality Noted Date Comments Hydralazine Headache,Vomiting Low 01/21/2024 Ketorolac Hives,Itching Medium 10/17/2017 Tramadol Hives,Urticaria Medium 08/27/2016 Medications omeprazole (PriLOSEC) 20 mg capsuleIndication s:Treatment of Non-Bleeding Gastric Disorder Take 1 capsule (20 mg total) by mouth early childhood before breakfast Active MULTIVIT-MINERALS /FERROUS FUM (MULTI VITAMIN ORAL)Indications: health Take 1 tablet by mouth early childhood before breakfast Active ondansetron ODT (ZOFRAN-ODT) 4 [...] (25 mg total) by mouth early childhood before breakfast Active nebivoloL (BYSTOLIC) 10 mg [...] CDT - 10/31/2024 10:51 PM CDT Emergency [facility] Emergency Department [address] [place] [address] Yanni Garcia MD Flank pain (Primary Dx) [...] Date Smoking Tobacco: Every Day Cigarettes 0.7 33.1 Started: 11/11/1991 Smokeless Tobacco: Never Tobacco Cessation:Ready [...] on file Legal Sex Female 9:06 PM THEATER USHER Gender Identity Female 10/01/2023 8:44 AM THEATER USHER Sexual Orientation Straight 10/01/2023 8: 44 AM THEATER USHER Obstetrics History Para Term AB IAB SAB [...] cm (5' 3 ) 06/29/2024 7:50 AM THEATER USHER Body Mass Index 32.57 06/29/2024 7:50 AM THEATER USHER Plan of Treatment Health Maintenance Due Date [...] on stairs Contact your local community or [facility] for information on exercise, fall prevention programs, or options for improving home safety. Medical Devices Implanted Type Area Tub Rider Device Identifier Shelf Expiration Date Model / [...] MD LAB BLOOD ORDERABLES Final R esult [facility] One [facility] Department [place] [address] * (ABNORMAL) Differential, auto (10/31/2024 5:42 PM CDT) Neutrophil abs 5.6 1.5 - 6.5 K/cumm Imm gran abs 0.0 0.0 - 0.1 K/cumm [facility] Lymphocyte abs 2.3 0.8 - 3.3 K/cumm [facility] Monocyte abs 0.9(H) 0.2 - 0.8 K/cumm [facility] Eosinophil abs 0.1 0.0 - 0.5 K/cumm [facility] Basophil abs 0.1 0.0 - 0.1 K/cumm [facility] Neutrophil pct 62.4 % [facility] Comment: Interpretive Data Percent cell count reference ranges are not reported, since discordance with absolute values may lead to misinterpretation of CBC data. Current Interpretive Data was last revised on 2017. Imm gran pct 0.3 % [facility] Comment: Interpretive Data Percent cell count reference ranges are not reported, since discordance with absolute values may lead to misinterpretation of CBC data. Current Interpretive Data was last revised on 2017. Lymphocyte pct 25.2 % [facility] Comment: Interpretive Data Percent cell count reference ranges are not reported, since discordance with absolute values may lead to misinterpretation of CBC data. Current Interpretive Data was last revised on 2017. Monocyte pct 10.0 % [facility] Comment: Interpretive Data Percent cell count reference ranges are not reported, since discordance with absolute values may lead to misinterpretation of CBC data. Current Interpretive Data was last revised on 2017. Eosinophil pct 1.5 % [facility] Comment: Interpretive Data Percent cell count reference ranges are not reported, since discordance with absolute values may lead to misinterpretation of CBC data. Current Interpretive Data was last revised on 2017. Basophil pct 0.6 % [facility] Comment: Interpretive Data Percent cell count reference ranges are not reported, since discordance with absolute values may lead to misinterpretation of CBC data. Current Interpretive Data was last revised on 2017. Blood 10/31/2024 5:42 PM CDT 10/31/2024 5:51 PM CDT us Severo Mckeon MD LAB BLOOD ORDERABLES Final R esult [facility] One [facility] Department [place] [address] * Urinalysis reflex to microscopic and culture Urine (10/31/2024 5:42 PM CDT) Color, ur Straw Yellow Clarity, ur Clear Clear [facility] Specific gravity, ur 1.011 1.003 - 1.030 [facility] pH, urine 5.5 [facility] Comment: Interpretive Data U rine pH is affected by diet, medications, systemic acid-base disturbances, and renal tubular function. pH may affect urinary stone formation. For example, urine pH below 6.0 may help reduce the tendency for calcium phosphate stones and pH greater than 6.0 may reduce the tendency for uric acid stone formation. Source: [facility] Current Interpretive Data was last revised on 2017 Protein, ur ql Negative Negative [facility] Glucose, ur ql Negative Negative [facility] Ketones, ur Negative Negative [facility] Bilirubin, ur Negative Negative [facility] Blood, ur Negative Negative [facility] Urobilinogen, ur <2.0 <2.0 mg/dL [facility] Nitrite, ur Negative Negative [facility] Leukocyte esterase, ur Negative Negative [facility] UA reflex comment Reflex conditions for microscopic UA and culture not met. [facility] Urine 10/31/2024 5:42 PM CDT 10/31/2024 5:49 PM CDT us Minda Gurrola MD LAB MICROBIOLOGY - GENER AL ORDERABLES Final Result [facility] Department [place] [address] * (ABNORMAL) CBC with auto differential (10/31/2024 5:42 PM CDT) WBC 8.9 3.8 - 9.9 K/cumm Hgb 16.1(H) 11.9 - 15.5 g/dL [facility] Hct 45.8(H) 35.6 - 45.5 % [facility] Plt 319 150 - 400 K/cumm [facility] MPV 9.2 9.1 - 12.3 fL [facility] RBC 5.35(H) 3.90 - 5.20 M/cumm [facility] MCV 85.6 81.3 - 96.4 fL [facility] MCH 30.1 27.1 - 33.3 pg [facility] MCHC 35.2 32.3 - 35.7 g/dL [facility] RDW CV 12.5 11.1 - 14.9 % [facility] RDW SD 38.8 35.7 - 48.1 fL [facility] NRBC abs 0.00 0.00 - 0.01 K/cumm [facility] Blood Venous blood specimen / Unknown 10/31/2024 5:42 PM CDT 10/31/2024 5:51 PM CDT us Yanni Garcia MD LAB BLOOD ORDERABLES Final Result [facility] Department [place] [address] * Lipase (10/31/2024 5:42 PM CDT) Pathologist [facility] Lipase 41 10 - 99 Units/L Blood Venous blood specimen / Unknown 10/31/2024 5:42 PM CDT 10/31/2024 5:51 PM CDT us Yanni Garcia MD LAB BLOOD ORDERABLES Final Result [facility] Department [place] [address] * (ABNORMAL) Comprehensive metabolic panel (10/31/2024 5:42 PM CDT) Pathologist [facility] Sodium 142 135 - 145 mmol/L Potassium, pl 4.2 3.3 - 4.9 mmol/L [facility] Chloride 105 97 - 110 mmol/L [facility] CO2 24 22 - 32 mmol/L [facility] Anion gap 13 2 - 15 mmol/L [facility] BUN 9 6 - 25 mg/dL [facility] Creatinine 0.65 0.60 - 1.10 mg/dL [facility] Glucose 84 70 - 199 mg/dL [facility] Comment: Interpretive Data Fasting glucose [...] 2022. Calcium 10.3 8.5 - 10.3 mg/dL [facility] Bilirubin, total 0.3 0.1 - 1.2 mg/dL [facility] Protein, pl 8.3 6.5 - 8.5 g/dL [facility] Albumin 4.7 3.5 - 5.0 g/dL [facility] Alk phos 105 40 - 130 Units/L [facility] ALT 68(H) 7 - 45 Units/L [facility] AST 48(H) 10 - 45 Units/L [facility] Blood Venous blood specimen / Unknown 10/31/2024 5:42 PM CDT 10/31/2024 5:51 PM CDT Yanni Garcia MD LAB BLOOD ORDERABLES Final Result [facility] Department [place] [address] * ECG 12-LEAD (10/31/2024 4:30 PM CDT) [...] ECG ORDERABLES Final Resul t [facility] from Last 3 Months Insurance IDPA [facility] IDPA IDPA Advance Directives For more information, please contact: [phone] * Full Code (Latest Code Status on File) Date Activated Date Inactivated Comments 08/15/2022 3:10 PM 08/18/2022 6:09 PM Care Teams Occupational Health Nurse Supervisor Relationship Specialty Start Date End Date Lucas Carter DO PCP - General Internal Medicine 08/15/22
--- OUTSIDE RECORDS SUMMARY | 2024-12-09 15:58 | XMS_ITS | Referral Summary ---
Author Organization [facility] Address [address] [place] [address] Care Team Providers Care Owner Professional Engineer Name Role Phone Lucas Carter DO Primary Care Provider [phone]- [phone] Encounters Date Type Department Care Team Description 10/31/2024 4:48 PM CDT - 10/31/2024 10:51 PM CDT Emergency [facility] Emergency Department [address] [place] [address] Yanni Garcia MD Flank pain (Primary Dx) Discharge Disposition: Discharge to home or self care from Last 3 Months Allergies Active Allergy Reactions Criticality Noted Date Comments Hydralazine Headache,Vomiting Low 01/21/2024 Ketorolac Hives,Itching Medium 10/17/2017 Tramadol Hives,Urticaria Medium 08/27/2016 Medications omeprazole (PriLOSEC) 20 mg capsuleIndication s:Treatment of Non-Bleeding Gastric Disorder Take 1 capsule (20 mg total) by mouth substation mechanic before breakfast Active MULTIVIT-MINERALS /FERROUS FUM (MULTI VITAMIN ORAL)Indications: health Take 1 tablet by mouth substation mechanic before breakfast Active ondansetron ODT (ZOFRAN-ODT) [...] 1 tablet (25 mg total) by mouth substation mechanic before breakfast Active nebivoloL (BYSTOLIC) 10 [...] on file Legal Sex Female 9:06 PM ANTIQUE FURNITURE RESTORER Gender Identity Female 10/01/2023 8:44 AM ANTIQUE FURNITURE RESTORER Sexual Orientation Straight 10/01/2023 8: 44 AM ANTIQUE FURNITURE RESTORER Last Filed Vital Signs Vital Sign Reading [...] cm (5' 3 ) 06/29/2024 7:50 AM ANTIQUE FURNITURE RESTORER Body Mass Index 32.57 06/29/2024 7:50 AM ANTIQUE FURNITURE RESTORER Plan of Treatment Not on file Goals [...] on stairs Contact your local community or [employer] for information on exercise, fall prevention programs, or options for improving home safety. Medical Devices Implanted Type Area Purchasing Intern Device Identifier Shelf Expiration Date Model [...] POCT hCG, urine (10/31/2024 6:32 PM CDT) [facility] HCG, ur, POC Negative Negative Lot Number [id number] QC Backgroud Clear Acceptable QC Control Line Acceptable Urine 10/31/2024 6:32 PM CDT Yanni Garcia MD POINT OF CARE TEST ORDERABL ES Final Result * eGFR (10/31/2024 5:42 PM CDT) [facility] eGFR >90 >=60 mL/min/1. 73 m2 [...] MD LAB BLOOD ORDERABLES Final R esult [facility] One [facility] Department [place] [address] * (ABNORMAL) Differential, auto (10/31/2024 5:42 PM CDT) Neutrophil abs 5.6 1.5 - 6.5 K/cumm Imm gran abs 0.0 0.0 - 0.1 K/cumm [facility] Lymphocyte abs 2.3 0.8 - 3.3 K/cumm [facility] Monocyte abs 0.9(H) 0.2 - 0.8 K/cumm [facility] Eosinophil abs 0.1 0.0 - 0.5 K/cumm [facility] Basophil abs 0.1 0.0 - 0.1 K/cumm [facility] Neutrophil pct 62.4 % [facility] Comment: Interpretive Data Percent cell count reference ranges are not reported, since discordance with absolute values may lead to misinterpretation of CBC data. Current Interpretive Data was last revised on 2017. Imm gran pct 0.3 % [facility] Comment: Interpretive Data Percent cell count reference ranges are not reported, since discordance with absolute values may lead to misinterpretation of CBC data. Current Interpretive Data was last revised on 2017. Lymphocyte pct 25.2 % [facility] Comment: Interpretive Data Percent cell count reference ranges are not reported, since discordance with absolute values may lead to misinterpretation of CBC data. Current Interpretive Data was last revised on 2017. Monocyte pct 10.0 % [facility] Comment: Interpretive Data Percent cell count reference ranges are not reported, since discordance with absolute values may lead to misinterpretation of CBC data. Current Interpretive Data was last revised on 2017. Eosinophil pct 1.5 % [facility] Comment: Interpretive Data Percent cell count reference ranges are not reported, since discordance with absolute values may lead to misinterpretation of CBC data. Current Interpretive Data was last revised on 2017. Basophil pct 0.6 % [facility] Comment: Interpretive Data Percent cell count reference ranges are not reported, since discordance with absolute values may lead to misinterpretation of CBC data. Current Interpretive Data was last revised on 2017. Blood 10/31/2024 5:42 PM CDT 10/31/2024 5:51 PM CDT us Severo Mckeon MD LAB BLOOD ORDERABLES Final R esult [facility] One [facility] Department [place] [address] * Urinalysis reflex to microscopic and culture Urine (10/31/2024 5:42 PM CDT) Color, ur Straw Yellow Clarity, ur Clear Clear [facility] Specific gravity, ur 1.011 1.003 - 1.[address] [facility] pH, urine 5.[address] [facility] Comment: Interpretive Data U rine pH is affected by diet, medications, systemic acid-base disturbances, and renal tubular function. pH may affect urinary stone formation. For example, urine pH below 6.0 may help reduce the tendency for calcium phosphate stones and pH greater than 6.0 may reduce the tendency for uric acid stone formation. Source: [facility] [employer] Current Interpretive Data was last revised on 2017 Protein, ur ql Negative Negative [facility] Glucose, ur ql Negative Negative [facility] Ketones, ur Negative Negative [facility] Bilirubin, ur Negative Negative [facility] Blood, ur Negative Negative [facility] Urobilinogen, ur <2.0 <2.0 mg/dL [facility] Nitrite, ur Negative Negative [facility] Leukocyte esterase, ur Negative Negative [facility] UA reflex comment Reflex conditions for microscopic UA and culture not met. [facility] Urine 10/31/2024 5:42 PM CDT 10/31/2024 5:49 PM CDT us Minda Gurrola MD LAB MICROBIOLOGY - GENER AL ORDERABLES Final Result Performing Organization Address [facility]/ZIP Co de Phone Number [facility] Department [place] [address] * (ABNORMAL) CBC with auto differential (10/31/2024 5:42 PM CDT) WBC 8.9 3.8 - 9.9 K/cumm Hgb 16.1(H) 11.9 - 15.5 g/dL [facility] Hct 45.8(H) 35.6 - 45.5 % [facility] Plt 319 150 - 400 K/cumm [facility] MPV 9.2 9.1 - 12.[address] [facility] RBC 5.35(H) 3.90 - 5.20 M/cumm [facility] MCV 85.6 81.3 - 96.[address] [facility] MCH 30.1 27.1 - 33.[address] [facility] MCHC 35.2 32.3 - 35.7 g/dL [facility] RDW CV 12.5 11.1 - 14.9 % [facility] RDW SD 38.8 35.7 - 48.[address] [facility] NRBC abs 0.00 0.00 - 0.01 K/cumm [facility] Blood Venous blood specimen / Unknown 10/31/2024 5:42 PM CDT 10/31/2024 5:51 PM CDT us Yanni Garcia MD LAB BLOOD ORDERABLES Final Result Performing Organization Address City/[facility]/ZIP Co de Phone Number [facility] Department [place] [address] * Lipase (10/31/2024 5:42 PM CDT) Lipase 41 10 - 99 Units/L Blood Venous blood specimen / Unknown 10/31/2024 5:42 PM CDT 10/31/2024 5:51 PM CDT us Yanni Garcia MD LAB BLOOD ORDERABLES Final Result [facility] One [facility] Department [place] [address] * (ABNORMAL) Comprehensive metabolic panel (10/31/2024 5:42 PM CDT) Sodium 142 135 - 145 mmol/L Potassium, pl 4.2 3.3 - 4.9 mmol/L [facility] Chloride 105 97 - 110 mmol/L [facility] CO2 24 22 - 32 mmol/L [facility] Anion gap 13 2 - 15 mmol/L [facility] BUN 9 6 - 25 mg/dL [facility] Creatinine 0.65 0.60 - 1.10 mg/dL [facility] Glucose 84 70 - 199 mg/dL [facility] Comment: Interpretive Data Fasting glucose >/= [...] 10.3 8.5 - 10.3 mg/dL [facility] Bilirubin, total 0.3 0.1 - 1.2 mg/dL [facility] Protein, pl 8.3 6.5 - 8.5 g/dL [facility] Albumin 4.7 3.5 - 5.0 g/dL [facility] Alk phos 105 40 - 130 Units/L [facility] ALT 68(H) 7 - 45 Units/L [facility] AST 48(H) 10 - 45 Units/L [facility] Blood Venous blood specimen / Unknown 10/31/2024 5:42 PM CDT 10/31/2024 5:51 PM CDT Yanni Garcia MD LAB BLOOD ORDERABLES Final Result [facility] One [facility] [place] [address] * ECG 12-LEAD (10/31/2024 4:30 PM CDT) [...] MD ECG ORDERABLES Final Resul t [facility] from Last 3 Months Insurance IDPA [facility] CHO[facility] IDPA IDPA Advance Directives For more information, please contact: [phone] * Full Code (Latest Code Status on File) Date Activated Date Inactivated Comments 08/15/2022 3:10 PM 08/18/2022 6:09 PM Care Teams Owner Professional Engineer Relationship Specialty Start Date End Date Lucas Carter DO PCP - General Internal Medicine 08/15/22
[2024-12-09 20:21] LABS: Add Urine Microscopic? YES; Appearance Urine Turbid (Clear); Bacteria Urine 4+ /hpf; Bilirubin Urine 1+ (Negative); Blood Urine Trace (Negative); Calcium Oxalate Crystals Urine Present /hpf; Color Urine Dark Yellow (Yellow); Glucose Urine UA Negative (Negative); Ketones Urine Trace mg/dL (Negative); Leukocyte Esterase Ur 1+ LEU/UL (Negative); Mucus Urine Present /lpf; Need Manual Microscopic Reviewed; Nitrate Urine Negative (Negative); Protein Urine 1+ mg/dL (Negative); Squamous Epithelial Cell Urine Many /hpf (Few); WBC Urine 21-50 /hpf (0-3); pH Urine 5.5 (5.0-9.0)
[2024-12-09 22:01] LABS: Cortisol Random 2.31 ug/dL
[2024-12-15 11:33] LABS: PRA 13.11 ng/mL/h (0.25-5.82)
== END 2024-12-09 14:58 | disposition home or self-care (01) ==
LOC: ANHGOSHLAB 15:00
PROVIDERS: PCP Internal Medicine; Visit Provider Nurse Practitioner
DX: R30.0 Dysuria (principal); N20.0 Calculus of kidney; N30.01 Acute cystitis with hematuria; I16.0 Hypertensive urgency; I10 Essential (primary) hypertension
CPT/HCPCS: 36415; 81001; 82088; 82533; 84244

== ENCOUNTER 2024-12-11 00:21 | Emergency (ER) | payer OTHER, SELFPAY ==
--- NOTE | ~2024-12-11 | CT_ITS ---
CT of the Abdomen and Pelvis: Indication: Abdominal pain Technique: 2.5 mm axial scans were obtained through the abdomen and pelvis following intravenous adm inistration of 100 cc of Omnipaque 350. Dose reduction technique was used on this scan by utilizing a utomated exposure control and iterative reconstruction technique. The dose-length product (DLP) was 7 10.63 mGy-cm. COMPARISON: 11/25/2024 Findings: Scans through the lung bases are unremarkable. There is diffuse hepatic steatosis. Cholecystectomy clips are present. 2 mm nonobstructing left renal stone present. The spleen, pancreas, adrenals and right kidney are within normal limits. There are a therosclerotic calcifications of the aorta. No lymphadenopathy. No bowel obstruction or bowel wall thickening. There is no evidence to suggest acute appendicitis. Images through the pelvis were performed. Urinary bladder unremarkable. No pelvic mass seen. No ascit es. Impression: No acute abnormality. 2 mm nonobstructing left renal stone. Diffuse hepatic steatosis. Reviewed, dictated and finalized at [facility]. Impression: No acute abnormality. 2 mm nonobstructing left renal stone. Diffuse hepatic steatosis.
--- OUTSIDE RECORDS SUMMARY | 2024-12-11 00:24 | XMS_ITS | Clinical Summary ---
Author Organization [facility] Address [address] [place] [address] Phone Care Team Providers Care Pattern Chain Maker Supervisor Name Role Phone Unavailable Primary Care [...] Care Team Description 11/13/2024 Travel 11/13/2024 Telephone [facility] PHYSICIAN [facility] [address] [place] [address] Carlyle Calderon MD 11/12/2024 Telephone [facility] [address] [place] [address] Carlyle Calderon MD from Last [...] Visit [facility] [address] [place] [address] Damian Daimond MD [address] [address] Health Maintenance Due Date Last Done Comments [...] age to complete this topic Insurance MEDICAID [place]
--- OUTSIDE RECORDS SUMMARY | 2024-12-11 00:24 | XMS_ITS | Referral Summary ---
Author Organization [facility] Address [address] [place] [address] Care Team Providers Care Correctional Officer Sergeant Name Role Phone Lucas Carter DO Primary Care Provider [phone] Encounters Date Type Department Care Team Description 10/31/2024 4:48 PM CDT - 10/31/2024 10:51 PM CDT Emergency [facility] Emergency Department [address] [place] [address] Yanni Garcia MD Flank pain (Primary Dx) Discharge Disposition: Discharge to home or self care from Last 3 Months Allergies Active Allergy Reactions Criticality Noted Date Comments Hydralazine Headache,Vomiting Low 01/21/2024 Ketorolac Hives,Itching Medium 10/17/2017 Tramadol Hives,Urticaria Medium 08/27/2016 Medications omeprazole (PriLOSEC) 20 mg capsuleIndication s:Treatment of Non-Bleeding Gastric Disorder Take 1 capsule (20 mg total) by mouth louver mortiser operator before breakfast Active MULTIVIT-MINERALS /FERROUS FUM (MULTI VITAMIN ORAL)Indications: health Take 1 tablet by mouth louver mortiser operator before breakfast Active ondansetron ODT (ZOFRAN-ODT) [...] 1 tablet (25 mg total) by mouth louver mortiser operator before breakfast Active nebivoloL (BYSTOLIC) 10 [...] on file Legal Sex Female 9:06 PM SCALPING MACHINE OPERATOR Gender Identity Female 10/01/2023 8:44 AM SCALPING MACHINE OPERATOR Sexual Orientation Straight 10/01/2023 8: 44 AM SCALPING MACHINE OPERATOR Last Filed Vital Signs Vital Sign [...] cm (5' 3 ) 06/29/2024 7:50 AM SCALPING MACHINE OPERATOR Body Mass Index 32.57 06/29/2024 7:50 AM SCALPING MACHINE OPERATOR Plan of Treatment Not on file [...] on stairs Contact your local community or [facility] for information on exercise, fall prevention programs, or options for improving home safety. Medical Devices Implanted Type Area Patient Financial Coordinator Device Identifier Shelf Expiration Date Model / [...] POCT hCG, urine (10/31/2024 6:32 PM CDT) [facility] HCG, ur, POC Negative Negative Lot Number [id number] QC Backgroud Clear Acceptable QC Control Line Acceptable Urine 10/31/2024 6:32 PM CDT Yanni Garcia MD POINT OF CARE TEST ORDERABL ES Final Result * eGFR (10/31/2024 5:42 PM CDT) [facility] eGFR >90 >=60 mL/min/1. 73 m2 [...] Final R esult [facility] [place] [address] * (ABNORMAL) Differential, auto (10/31/2024 5:42 PM CDT) Neutrophil abs 5.6 1.5 - 6.5 K/cumm Imm gran abs 0.0 0.0 - 0.1 K/cumm [facility] Lymphocyte abs 2.3 0.8 - 3.3 K/cumm [facility] Monocyte abs 0.9(H) 0.2 - 0.8 K/cumm [facility] Eosinophil abs 0.1 0.0 - 0.5 K/cumm [facility] Basophil abs 0.1 0.0 - 0.1 K/cumm [facility] Neutrophil pct 62.4 % [facility] [...] Final R esult [facility] [place] [address] * Urinalysis reflex to microscopic and culture [...] tendency for uric acid stone formation. Source: [facility] [employer] Current Interpretive Data was last revised on 2017 Protein, ur ql Negative Negative [facility] Glucose, ur ql Negative Negative [facility] Ketones, ur Negative Negative [facility] Bilirubin, ur Negative Negative [facility] Blood, ur Negative Negative [facility] Urobilinogen, ur <2.0 <2.0 mg/dL [facility] Nitrite, ur Negative Negative [facility] Leukocyte esterase, ur Negative Negative [facility] UA reflex comment Reflex conditions for microscopic UA and culture not met. [facility] Urine 10/31/2024 5:42 PM CDT 10/31/2024 5:49 PM CDT us Minda Gurrola MD LAB MICROBIOLOGY - GENER AL ORDERABLES Final Result Performing Organization Address [facility]/ZIP Co de Phone Number [facility] [place] [address] * (ABNORMAL) CBC with auto differential (10/31/2024 [...] [facility]/ZIP Co de Phone Number [facility] [place] [address] * Lipase (10/31/2024 5:42 PM CDT) Lipase 41 10 - 99 Units/L Blood Venous blood specimen / Unknown 10/31/2024 5:42 PM CDT 10/31/2024 5:51 PM CDT us Yanni Garcia MD LAB BLOOD ORDERABLES Final Result [facility] [place] [address] * (ABNORMAL) Comprehensive metabolic panel (10/31/2024 5:42 [...] HOSPITAL ALT 68(H) 7 - 45 Units/L [facility] AST 48(H) 10 - 45 Units/L [facility] Blood Venous blood specimen / Unknown 10/31/2024 5:42 PM CDT 10/31/2024 5:51 PM CDT Yanni Garcia MD LAB BLOOD ORDERABLES Final Result [facility] [place] [address] * ECG 12-LEAD (10/31/2024 4:30 PM CDT) [...] MD ECG ORDERABLES Final Resul t [employer] from Last 3 Months Insurance IDPA [facility] CHOICE PLUS [facility] IDPA IDPA Advance Directives For more information, please contact: [phone] * Full Code (Latest Code Status on File) Date Activated Date Inactivated Comments 08/15/2022 3:10 PM 08/18/2022 6:09 PM Care Teams Correctional Officer Sergeant Relationship Specialty Start Date End Date Lucas Carter DO PCP - General Internal Medicine 08/15/22
--- OUTSIDE RECORDS SUMMARY | 2024-12-11 00:24 | XMS_ITS | CONTINUITY OF CARE DOCUMENT ---
Author Name sylviaisabelhugo Address Unknown Organization [facility] Address [address] [place] [address] Phone [phone] Care Team Providers Care Sustainable Products Marketing Manager Name Role Phone William CURIEL, Herlinda Unavailable SHAWNEE CURIEL, NABIL Schmidt Unavailable [phone] INSURANCE PROVIDERS Payer name Policy type / Coverage type Bj red alliance party ID [employer] Medicaid [id number] [facility] [id number]
--- OUTSIDE RECORDS SUMMARY | 2024-12-11 00:24 | XMS_ITS | Clinical Summary ---
Author Organization [facility] Address [address] [place] [address] Care Team Providers Care Supervisor Farm Equipment Maintenance Name Role Phone Damian Sadler MD Primary Care Provider [phone] Source Comments [facility],non-owned Affiliates and Associated Physician Practices is amultiple site organization consisting of ambulatory clinics and hospital sitesin [place], [place], [place] and [place]. This disclosure is being madepursuant to the Care Everywhere program and may not contain all information available regarding this patient. 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 Gender Identity Not on file Sexual Orientation [...] Resulting Agency Comment Lab [facility]: [facility] [address] [id number] us Nancy Cotto MD LAB - CHEMISTRY ORDERABLES Final Result [facility] INSURANCE BILL [address] [place] [address] * (ABNORMAL) COMPREHENSIVE METABOLIC PANEL (02/03/2024 1:03 AM [facility]) BUN 9 7 - 26 mg/dL 02/03/2024 [...] 7 - 23 02/03/2024 1:45 AM T [facility] Osmolality Calculated 286 275 - 295 mOsm/kg 02/03/2024 1:45 AM [facility] Albumin/Globulin Ratio 1.3 1.1 - 2.3 02/03/2024 1:45 AM T [facility] eGFR by CKD-EPI >90 >=90 mL/min/1.7 3 m2 02/03/2024 1:45 AM T [facility] Blood BLOOD SPECIMEN / Unknown Venipuncture / Unknown 02/03/2024 1:03 AM CDT 02/03/2024 1:17 AM CDT Kaylee Reyes MD LAB - CHEMISTRY ORDERABLES Fi nal Result [facility] [address] [place] [address], [facility] [phone] from Last 3 Months or Most Recently Relevant to Health Maintenance Insurance [phone] (Work) [address] [place] [id number] MEDICAID [place] SELF PAY NO INSURANCE Member Subscriber Plan / Payer (Ef fective for All Dates) Name:Tita Luke Member ID:Not on file Relation to Subscriber:Not on file Name:TITA LUKE Subscriber ID:Not on file (Home) Address: [address] [place] [id number] Payer ID:Not on file Group ID:Not on file Type:Self Pay Address: [facility] Care Teams Supervisor Farm Equipment Maintenance Relationship Specialty Start Date End Date Damian Sadler MD PCP - General Internal Medicine 07/04/16
--- OUTSIDE RECORDS SUMMARY | 2024-12-11 00:24 | XMS_ITS | Clinical Summary ---
Author Organization [facility] Address [address] [place] [address] Care Team Providers Care Installation Drafter Name Role Phone Lucas Carter DO Primary Care Provider [phone] Allergies Active Allergy Reactions Criticality Noted Date Comments Hydralazine Headache,Vomiting Low 01/21/2024 Ketorolac Hives,Itching Medium 10/17/2017 Tramadol Hives,Urticaria Medium 08/27/2016 Medications omeprazole (PriLOSEC) 20 mg capsuleIndication s:Treatment of Non-Bleeding Gastric Disorder Take 1 capsule (20 mg total) by mouth farm products shipper before breakfast Active MULTIVIT-MINERALS /FERROUS FUM (MULTI VITAMIN ORAL)Indications: health Take 1 tablet by mouth farm products shipper before breakfast Active ondansetron ODT (ZOFRAN-ODT) 4 [...] 1 tablet (25 mg total) by mouth farm products shipper before breakfast Active nebivoloL (BYSTOLIC) 10 mg [...] [facility] Emergency Department [address] [place] [address] Yanni Garcia MD Flank pain (Primary Dx) [...] on file Legal Sex Female 9:06 PM YARD COUPLER Gender Identity Female 10/01/2023 8:44 AM YARD COUPLER Sexual Orientation Straight 10/01/2023 8: 44 AM YARD COUPLER Obstetrics History Para Term AB IAB SAB [...] cm (5' 3 ) 06/29/2024 7:50 AM YARD COUPLER Body Mass Index 32.57 06/29/2024 7:50 AM YARD COUPLER Plan of Treatment Health Maintenance Due Date [...] Care Plan Chronic Care Management No Steph Millrad, RN Note: Problem: Chronic Pain Goals: 1. [...] on stairs Contact your local community or [facility] for information on exercise, fall prevention programs, or options for improving home safety. Medical Devices Implanted Type Area Skiver Sock Linings Device Identifier Shelf Expiration Date Model / [...] hCG, urine (10/31/2024 6:32 PM CDT) Pathologist [facility] HCG, ur, POC Negative Negative Lot Number [id number] QC Backgroud Clear Acceptable QC Control Line Acceptable Urine 10/31/2024 6:32 PM CDT Yanni Garcia MD POINT OF CARE TEST ORDERABL ES Final Result * eGFR (10/31/2024 5:42 PM CDT) Pathologist [facility] eGFR >90 >=60 mL/min/1. 73 m2 [...] MD LAB BLOOD ORDERABLES Final R esult [facility] [place] [address] * (ABNORMAL) Differential, auto (10/31/2024 5:42 PM CDT) Neutrophil abs 5.6 1.5 - 6.5 K/cumm Imm gran abs 0.0 0.0 - 0.1 K/cumm [facility] Lymphocyte abs 2.3 0.8 - 3.3 K/cumm [facility] Monocyte abs 0.9(H) 0.2 - 0.8 K/cumm [facility] Eosinophil abs 0.1 0.0 - 0.5 K/cumm [facility] Basophil abs 0.1 0.0 - 0.1 K/cumm [facility] Neutrophil pct 62.4 % [facility] Comment: Interpretive Data Percent cell count reference ranges are not reported, since discordance with absolute values may lead to misinterpretation of CBC data. Current Interpretive Data was last revised on 2017. Imm gran pct 0.3 % [facility] Comment: Interpretive Data Percent cell count reference ranges are not reported, since discordance with absolute values may lead to misinterpretation of CBC data. Current Interpretive Data was last revised on 2017. Lymphocyte pct 25.2 % [facility] Comment: Interpretive Data Percent cell count reference ranges are not reported, since discordance with absolute values may lead to misinterpretation of CBC data. Current Interpretive Data was last revised on 2017. Monocyte pct 10.0 % [facility] Comment: Interpretive Data Percent cell count reference ranges are not reported, since discordance with absolute values may lead to misinterpretation of CBC data. Current Interpretive Data was last revised on 2017. Eosinophil pct 1.5 % [facility] Comment: Interpretive Data Percent cell count reference ranges are not reported, since discordance with absolute values may lead to misinterpretation of CBC data. Current Interpretive Data was last revised on 2017. Basophil pct 0.6 % [facility] Comment: Interpretive Data Percent cell count reference ranges are not reported, since discordance with absolute values may lead to misinterpretation of CBC data. Current Interpretive Data was last revised on 2017. Blood 10/31/2024 5:42 PM CDT 10/31/2024 5:51 PM CDT us Severo Mckeon MD LAB BLOOD ORDERABLES Final R esult [facility] [place] [address] * Urinalysis reflex to microscopic and culture Urine (10/31/2024 5:42 PM CDT) Color, ur Straw Yellow Clarity, ur Clear Clear [facility] Specific gravity, ur 1.011 1.003 - 1.030 [facility] pH, urine 5.5 [facility] Comment: Interpretive Data U rine pH is affected by diet, medications, systemic acid-base disturbances, and renal tubular function. pH may affect urinary stone formation. For example, urine pH below 6.0 may help reduce the tendency for calcium phosphate stones and pH greater than 6.0 may reduce the tendency for uric acid stone formation. Source: [facility] [employer] Current Interpretive Data was last revised on 2017 Protein, ur ql Negative Negative [facility] Glucose, ur ql Negative Negative [facility] Ketones, ur Negative Negative [facility] Bilirubin, ur Negative Negative [facility] Blood, ur Negative Negative [facility] Urobilinogen, ur <2.0 <2.0 mg/dL [facility] Nitrite, ur Negative Negative [facility] Leukocyte esterase, ur Negative Negative [facility] UA reflex comment Reflex conditions for microscopic UA and culture not met. [facility] Urine 10/31/2024 5:42 PM CDT 10/31/2024 5:49 PM CDT us Minda Gurrola MD LAB MICROBIOLOGY - GENER AL ORDERABLES Final Result [facility] [place] [address] * (ABNORMAL) CBC with auto differential (10/31/2024 5:42 PM CDT) WBC 8.9 3.8 - 9.9 K/cumm Hgb 16.1(H) 11.9 - 15.5 g/dL [facility] Hct 45.8(H) 35.6 - 45.5 % [facility] Plt 319 150 - 400 K/cumm [facility] MPV 9.2 9.1 - 12.3 fL [facility] RBC 5.35(H) 3.90 - 5.20 M/cumm [facility] MCV 85.6 81.3 - 96.4 fL [facility] MCH 30.1 27.1 - 33.3 pg [facility] MCHC 35.2 32.3 - 35.7 g/dL [facility] RDW CV 12.5 11.1 - 14.9 % [facility] RDW SD 38.8 35.7 - 48.1 fL [facility] NRBC abs 0.00 0.00 - 0.01 K/cumm [facility] Blood Venous blood specimen / Unknown 10/31/2024 5:42 PM CDT 10/31/2024 5:51 PM CDT us Yanni Garcia MD LAB BLOOD ORDERABLES Final Result [facility] [place] [address] * Lipase (10/31/2024 5:42 PM CDT) Pathologist [facility] Lipase 41 10 - 99 Units/L Blood Venous blood specimen / Unknown 10/31/2024 5:42 PM CDT 10/31/2024 5:51 PM CDT us Yanni Garcia MD LAB BLOOD ORDERABLES Final Result [facility] [place] [address] * (ABNORMAL) Comprehensive metabolic panel (10/31/2024 5:42 PM CDT) Pathologist [facility] Sodium 142 135 - 145 mmol/L Potassium, pl 4.2 3.3 - 4.9 mmol/L [facility] Chloride 105 97 - 110 mmol/L [facility] CO2 24 22 - 32 mmol/L [facility] Anion gap 13 2 - 15 mmol/L [facility] BUN 9 6 - 25 mg/dL [facility] Creatinine 0.65 0.60 - 1.10 mg/dL [facility] Glucose 84 70 - 199 mg/dL [facility] Comment: Interpretive Data Fasting glucose >/= [...] 2022. Calcium 10.3 8.5 - 10.3 mg/dL [facility] Bilirubin, total 0.3 0.1 - 1.2 mg/dL [facility] Protein, pl 8.3 6.5 - 8.5 g/dL [facility] Albumin 4.7 3.5 - 5.0 g/dL [facility] Alk phos 105 40 - 130 Units/L [facility] ALT 68(H) 7 - 45 Units/L [facility] AST 48(H) 10 - 45 Units/L [facility] Blood Venous blood specimen / Unknown 10/31/2024 5:42 PM CDT 10/31/2024 5:51 PM CDT Yanni Garcia MD LAB BLOOD ORDERABLES Final Result [facility] [place] [address] * ECG 12-LEAD (10/31/2024 4:30 PM CDT) [...] [facility]J from Last 3 Months Insurance IDPA [facility] CHOICE PLUS [facility] IDPA IDPA Advance Directives For more information, please contact: [phone] * Full Code (Latest Code Status on File) Date Activated Date Inactivated Comments 08/15/2022 3:10 PM 08/18/2022 6:09 PM Care Teams Installation Drafter Relationship Specialty Start Date End Date Lucas Caretr DO PCP - General Internal Medicine 08/15/22
[2024-12-11] MEDS: SODIUM CHLORIDE 0.9% IV 1,000 ML 999 ML IV CONT (00:49)
[2024-12-11 00:52] VITALS: BP 135/100; PULSE 65; RESP 18; O2SAT 99
--- OUTSIDE RECORDS SUMMARY | 2024-12-11 00:53 | XMS_ITS | CONTINUITY OF CARE DOCUMENT ---
Author Name sylviaisabelhugo Address Unknown Organization [facility] Address [address] [place] [address] Phone [phone] Care Team Providers Care Mechanical Assembly Technician Name Role Phone William CURIEL, Herlinda Unavailable [phone] SHAWNEE CURIEL, NABIL Schmidt Unavailable [phone] INSURANCE PROVIDERS Payer name Policy type / Coverage type Bj red alliance party ID [employer] [employer] Medicaid [id number] [facility] [id number]
--- OUTSIDE RECORDS SUMMARY | 2024-12-11 00:53 | XMS_ITS | Clinical Summary ---
Author Organization [facility] al Address [address] [place] [address] Care Team Providers Care Loan Representative Name Role Phone Lucas Carter DO Primary Care Provider [phone] Allergies Active Allergy Reactions Criticality Noted Date Comments Hydralazine Headache,Vomiting Low 01/21/2024 Ketorolac Hives,Itching Medium 10/17/2017 Tramadol Hives,Urticaria Medium 08/27/2016 Medications omeprazole (PriLOSEC) 20 mg capsuleIndication s:Treatment of Non-Bleeding Gastric Disorder Take 1 capsule (20 mg total) by mouth cardiovascular radiologic technologist before breakfast Active MULTIVIT-MINERALS /FERROUS FUM (MULTI VITAMIN ORAL)Indications: health Take 1 tablet by mouth cardiovascular radiologic technologist before breakfast Active ondansetron ODT (ZOFRAN-ODT) 4 [...] 1 tablet (25 mg total) by mouth cardiovascular radiologic technologist before breakfast Active nebivoloL (BYSTOLIC) 10 mg [...] 10/31/2024 10:51 PM CDT Emergency [facility] Emergency Department [address] [place] [address] Yanni Garcia MD Flank pain (Primary Dx) [...] on file Legal Sex Female 9:06 PM QUALITY CONTROL DIRECTOR Gender Identity Female 10/01/2023 8:44 AM QUALITY CONTROL DIRECTOR Sexual Orientation Straight 10/01/2023 8: 44 AM QUALITY CONTROL DIRECTOR Obstetrics History Para Term AB IAB SAB [...] cm (5' 3 ) 06/29/2024 7:50 AM QUALITY CONTROL DIRECTOR Body Mass Index 32.57 06/29/2024 7:50 AM QUALITY CONTROL DIRECTOR Plan of Treatment Health Maintenance Due Date [...] on stairs Contact your local community or [facility] for information on exercise, fall prevention programs, or options for improving home safety. Medical Devices Implanted Type Area Asbestos Microscopist Device Identifier Shelf Expiration Date Model / [...] lymphadenopathy. No suspicious osseous lesions. Procedure Note iMke Olmstead MD PhD - 10/31/2024 EXAMINATION: Computed [...] MD LAB BLOOD ORDERABLES Final R esult [facility] [place] [address] * (ABNORMAL) Differential, auto (10/31/2024 5:42 PM CDT) Neutrophil abs 5.6 1.5 - 6.5 K/cumm Imm gran abs 0.0 0.0 - 0.1 K/cumm [facility] Lymphocyte abs 2.3 0.8 - 3.3 K/cumm [facility] Monocyte abs 0.9(H) 0.2 - 0.8 K/cumm [facility] Eosinophil abs 0.1 0.0 - 0.5 K/cumm [facility] Basophil abs 0.1 0.0 - 0.1 K/cumm [facility] Neutrophil pct 62.4 % [facility] Comment: Interpretive Data Percent cell count reference ranges are not reported, since discordance with absolute values may lead to misinterpretation of CBC data. Current Interpretive Data was last revised on 2017. Imm gran pct 0.3 % [facility] Comment: Interpretive Data Percent cell count reference ranges are not reported, since discordance with absolute values may lead to misinterpretation of CBC data. Current Interpretive Data was last revised on 2017. Lymphocyte pct 25.2 % [facility] Comment: Interpretive Data Percent cell count reference ranges are not reported, since discordance with absolute values may lead to misinterpretation of CBC data. Current Interpretive Data was last revised on 2017. Monocyte pct 10.0 % [facility] Comment: Interpretive Data Percent cell count reference ranges are not reported, since discordance with absolute values may lead to misinterpretation of CBC data. Current Interpretive Data was last revised on 2017. Eosinophil pct 1.5 % [facility] Comment: Interpretive Data Percent cell count reference ranges are not reported, since discordance with absolute values may lead to misinterpretation of CBC data. Current Interpretive Data was last revised on 2017. Basophil pct 0.6 % [facility] Comment: Interpretive Data Percent cell count reference ranges are not reported, since discordance with absolute values may lead to misinterpretation of CBC data. Current Interpretive Data was last revised on 2017. Blood 10/31/2024 5:42 PM CDT 10/31/2024 5:51 PM CDT us Severo Mckeon MD LAB BLOOD ORDERABLES Final R esult [facility] [place] [address] * Urinalysis reflex to microscopic and culture Urine (10/31/2024 5:42 PM CDT) Color, ur Straw Yellow Clarity, ur Clear Clear [facility] Specific gravity, ur 1.011 1.003 - 1.030 [facility] pH, urine 5.5 [facility] Comment: Interpretive Data U rine pH is affected by diet, medications, systemic acid-base disturbances, and renal tubular function. pH may affect urinary stone formation. For example, urine pH below 6.0 may help reduce the tendency for calcium phosphate stones and pH greater than 6.0 may reduce the tendency for uric acid stone formation. Source: [facility] [place] Current Interpretive Data was last revised on 2017 Protein, ur ql Negative Negative [facility] Glucose, ur ql Negative Negative [facility] Ketones, ur Negative Negative [facility] Bilirubin, ur Negative Negative [facility] Blood, ur Negative Negative [facility] Urobilinogen, ur <2.0 <2.0 mg/dL [facility] Nitrite, ur Negative Negative [facility] Leukocyte esterase, ur Negative Negative [facility] UA reflex comment Reflex conditions for microscopic UA and culture not met. [facility] Urine 10/31/2024 5:42 PM CDT 10/31/2024 5:49 PM CDT us Minda Gurrola MD LAB MICROBIOLOGY - GENER AL ORDERABLES Final Result [facility] [place] [address] * (ABNORMAL) CBC with auto differential (10/31/2024 5:42 PM CDT) WBC 8.9 3.8 - 9.9 K/cumm Hgb 16.1(H) 11.9 - 15.5 g/dL [facility] Hct 45.8(H) 35.6 - 45.5 % [facility] Plt 319 150 - 400 K/cumm [facility] MPV 9.2 9.1 - 12.3 fL [facility] RBC 5.35(H) 3.90 - 5.20 M/cumm [facility] MCV 85.6 81.3 - 96.4 fL [facility] MCH 30.1 27.1 - 33.3 pg [facility] MCHC 35.2 32.3 - 35.7 g/dL [facility] RDW CV 12.5 11.1 - 14.9 % [facility] RDW SD 38.8 35.7 - 48.1 fL [facility] NRBC abs 0.00 0.00 - 0.01 K/cumm [facility] Blood Venous blood specimen / Unknown 10/31/2024 5:42 PM CDT 10/31/2024 5:51 PM CDT us Yanni Garcia MD LAB BLOOD ORDERABLES Final Result [facility] [place] [address] * Lipase (10/31/2024 5:42 PM CDT) Pathologist [facility] Lipase 41 10 - 99 Units/L Blood Venous blood specimen / Unknown 10/31/2024 5:42 PM CDT 10/31/2024 5:51 PM CDT us Yanni Garcia MD LAB BLOOD ORDERABLES Final Result [facility] [place] [address] * (ABNORMAL) Comprehensive metabolic panel (10/31/2024 5:42 PM CDT) Pathologist [facility] Sodium 142 135 - 145 mmol/L Potassium, pl 4.2 3.3 - 4.9 mmol/L [facility] Chloride 105 97 - 110 mmol/L [facility] CO2 24 22 - 32 mmol/L [facility] Anion gap 13 2 - 15 mmol/L [facility] BUN 9 6 - 25 mg/dL [facility] Creatinine 0.65 0.60 - 1.10 mg/dL [facility] Glucose 84 70 - 199 mg/dL [facility] Comment: Interpretive Data Fasting glucose >/= 126 [...] 2022. Calcium 10.3 8.5 - 10.3 mg/dL [facility] Bilirubin, total 0.3 0.1 - 1.2 mg/dL [facility] Protein, pl 8.3 6.5 - 8.5 g/dL [facility] Albumin 4.7 3.5 - 5.0 g/dL [facility] Alk phos 105 40 - 130 Units/L [facility] ALT 68(H) 7 - 45 Units/L [facility] AST 48(H) 10 - 45 Units/L [facility] Blood Venous blood specimen / Unknown 10/31/2024 5:42 PM CDT 10/31/2024 5:51 PM CDT Yanni Garcia MD LAB BLOOD ORDERABLES Final Result [facility] [place] [address] * ECG 12-LEAD (10/31/2024 4:30 PM CDT) [...] BJ from Last 3 Months Insurance IDPA [facility] CHOICE PLUS [facility] HMO/PPO Address: [address] [address] [place] [address] [facility] IDPA IDPA Advance Directives For more information, please contact: [phone] * Full Code (Latest Code Status on File) Date Activated Date Inactivated Comments 08/15/2022 3:10 PM 08/18/2022 6:09 PM Care Teams Loan Representative Relationship Specialty Start Date End Date Lucas Carter DO PCP - General Internal Medicine 08/15/22
--- OUTSIDE RECORDS SUMMARY | 2024-12-11 00:54 | XMS_ITS | Referral Summary ---
Author Organization [facility] Address [address] [place] [address] Care Team Providers Care New Car Sales Manager Name Role Phone Lucas Carter DO Primary Care Provider [phone]- [phone] Encounters Date Type Department Care Team Description 10/31/2024 4:48 PM CDT - 10/31/2024 10:51 PM CDT Emergency [facility] Emergency Department [address] [place] [address] Yanni Garcia MD Flank pain (Primary Dx) Discharge Disposition: Discharge to home or self care from Last 3 Months Allergies Active Allergy Reactions Criticality Noted Date Comments Hydralazine Headache,Vomiting Low 01/21/2024 Ketorolac Hives,Itching Medium 10/17/2017 Tramadol Hives,Urticaria Medium 08/27/2016 Medications omeprazole (PriLOSEC) 20 mg capsuleIndication s:Treatment of Non-Bleeding Gastric Disorder Take 1 capsule (20 mg total) by mouth metal crafts teacher before breakfast Active MULTIVIT-MINERALS /FERROUS FUM (MULTI VITAMIN ORAL)Indications: health Take 1 tablet by mouth metal crafts teacher before breakfast Active ondansetron ODT (ZOFRAN-ODT) 4 [...] tablet (25 mg total) by mouth metal crafts teacher before breakfast Active nebivoloL (BYSTOLIC) 10 mg [...] on file Legal Sex Female 9:06 PM COUNTERINTELLIGENCE SPECIALIST Gender Identity Female 10/01/2023 8:44 AM COUNTERINTELLIGENCE SPECIALIST Sexual Orientation Straight 10/01/2023 8: 44 AM COUNTERINTELLIGENCE SPECIALIST Last Filed Vital Signs Vital Sign [...] cm (5' 3 ) 06/29/2024 7:50 AM COUNTERINTELLIGENCE SPECIALIST Body Mass Index 32.57 06/29/2024 7:50 AM COUNTERINTELLIGENCE SPECIALIST Plan of Treatment Not on file [...] on stairs Contact your local community or [facility] for information on exercise, fall prevention programs, or options for improving home safety. Medical Devices Implanted Type Area It Infrastructure Engineer Device Identifier Shelf Expiration Date Model [...] POCT hCG, urine (10/31/2024 6:32 PM CDT) [facility] HCG, ur, POC Negative Negative Lot Number [id number] QC Backgroud Clear Acceptable QC Control Line Acceptable Urine 10/31/2024 6:32 PM CDT Yanni Garcia MD POINT OF CARE TEST ORDERABL ES Final Result * eGFR (10/31/2024 5:42 PM CDT) [facility] eGFR >90 >=60 mL/min/1. 73 m2 Comment: [...] BLOOD ORDERABLES Final R esult [facility] One [facility] [place] [address] * (ABNORMAL) Differential, auto (10/31/2024 5:42 PM CDT) Neutrophil abs 5.6 1.5 - 6.5 K/cumm Imm gran abs 0.0 0.0 - 0.1 K/cumm [facility] Lymphocyte abs 2.3 0.8 - 3.3 K/cumm [facility] Monocyte abs 0.9(H) 0.2 - 0.8 K/cumm [facility] Eosinophil abs 0.1 0.0 - 0.5 K/cumm [facility] Basophil abs 0.1 0.0 - 0.1 K/cumm [facility] Neutrophil pct 62.4 % [facility] Comment: Interpretive Data Percent cell count reference ranges are not reported, since discordance with absolute values may lead to misinterpretation of CBC data. Current Interpretive Data was last revised on 2017. Imm gran pct 0.3 % [facility] Comment: Interpretive Data Percent cell count reference ranges are not reported, since discordance with absolute values may lead to misinterpretation of CBC data. Current Interpretive Data was last revised on 2017. Lymphocyte pct 25.2 % [facility] Comment: Interpretive Data Percent cell count reference ranges are not reported, since discordance with absolute values may lead to misinterpretation of CBC data. Current Interpretive Data was last revised on 2017. Monocyte pct 10.0 % [facility] Comment: Interpretive Data Percent cell count reference ranges are not reported, since discordance with absolute values may lead to misinterpretation of CBC data. Current Interpretive Data was last revised on 2017. Eosinophil pct 1.5 % [facility] Comment: Interpretive Data Percent cell count reference ranges are not reported, since discordance with absolute values may lead to misinterpretation of CBC data. Current Interpretive Data was last revised on 2017. Basophil pct 0.6 % [facility] Comment: Interpretive Data Percent cell count reference ranges are not reported, since discordance with absolute values may lead to misinterpretation of CBC data. Current Interpretive Data was last revised on 2017. Blood 10/31/2024 5:42 PM CDT 10/31/2024 5:51 PM CDT us Severo Mckeon MD LAB BLOOD ORDERABLES Final R esult [facility] Department [place] [address] * Urinalysis reflex to microscopic and culture Urine (10/31/2024 5:42 PM CDT) Color, ur Straw Yellow Clarity, ur Clear Clear [facility] Specific gravity, ur 1.011 1.003 - 1.030 [facility] pH, urine 5.5 [facility] Comment: Interpretive Data U rine pH is affected by diet, medications, systemic acid-base disturbances, and renal tubular function. pH may affect urinary stone formation. For example, urine pH below 6.0 may help reduce the tendency for calcium phosphate stones and pH greater than 6.0 may reduce the tendency for uric acid stone formation. Source: [facility] [place] Current Interpretive Data was last revised on 2017 Protein, ur ql Negative Negative [facility] Glucose, ur ql Negative Negative [facility] Ketones, ur Negative Negative [facility] Bilirubin, ur Negative Negative [facility] Blood, ur Negative Negative [facility] Urobilinogen, ur <2.0 <2.0 mg/dL [facility] Nitrite, ur Negative Negative [facility] Leukocyte esterase, ur Negative Negative [facility] UA reflex comment Reflex conditions for microscopic UA and culture not met. [facility] Urine 10/31/2024 5:42 PM CDT 10/31/2024 5:49 PM CDT us Minda Gurrola MD LAB MICROBIOLOGY - GENER AL ORDERABLES Final Result Performing Organization Address [facility]/ZIP Co de Phone Number [facility] Department [place] [address] * (ABNORMAL) CBC with auto differential (10/31/2024 5:42 PM CDT) WBC 8.9 3.8 - 9.9 K/cumm Hgb 16.1(H) 11.9 - 15.5 g/dL [facility] Hct 45.8(H) 35.6 - 45.5 % [facility] Plt 319 150 - 400 K/cumm [facility] MPV 9.2 9.1 - 12.3 fL [facility] RBC 5.35(H) 3.90 - 5.20 M/cumm [facility] MCV 85.6 81.3 - 96.4 fL [facility] MCH 30.1 27.1 - 33.3 pg [facility] MCHC 35.2 32.3 - 35.7 g/dL [facility] RDW CV 12.5 11.1 - 14.9 % [facility] RDW SD 38.8 35.7 - 48.1 fL [facility] NRBC abs 0.00 0.00 - 0.01 K/cumm [facility] Blood Venous blood specimen / Unknown 10/31/2024 5:42 PM CDT 10/31/2024 5:51 PM CDT us Yanni Garcia MD LAB BLOOD ORDERABLES Final Result Performing Organization Address City/[facility]/ZIP Co de Phone Number [facility] Department [place] [address] * Lipase (10/31/2024 5:42 PM CDT) Lipase 41 10 - 99 Units/L Blood Venous blood specimen / Unknown 10/31/2024 5:42 PM CDT 10/31/2024 5:51 PM CDT us Yanni Garcia MD LAB BLOOD ORDERABLES Final Result [facility] Department [place] [address] * (ABNORMAL) Comprehensive metabolic panel (10/31/2024 5:42 PM CDT) Sodium 142 135 - 145 mmol/L Potassium, pl 4.2 3.3 - 4.9 mmol/L [facility] Chloride 105 97 - 110 mmol/L [facility] CO2 24 22 - 32 mmol/L [facility] Anion gap 13 2 - 15 mmol/L [facility] BUN 9 6 - 25 mg/dL [facility] Creatinine 0.65 0.60 - 1.10 mg/dL [facility] Glucose 84 70 - 199 mg/dL [facility] Comment: Interpretive Data Fasting glucose [...] 10.3 8.5 - 10.3 mg/dL [facility] Bilirubin, total 0.3 0.1 - 1.2 mg/dL [facility] Protein, pl 8.3 6.5 - 8.5 g/dL [facility] Albumin 4.7 3.5 - 5.0 g/dL [facility] Alk phos 105 40 - 130 Units/L [facility] ALT 68(H) 7 - 45 Units/L [facility] AST 48(H) 10 - 45 Units/L [facility] Blood Venous blood specimen / Unknown 10/31/2024 5:42 PM CDT 10/31/2024 5:51 PM CDT Yanni Garcia MD LAB BLOOD ORDERABLES Final Result [facility] [place] [address] * ECG 12-LEAD (10/31/2024 4:30 PM CDT) [...] MD ECG ORDERABLES Final Resul t [facility] from Last 3 Months Insurance IDPA [facility] CHOICE PLUS [facility] IDPA IDPA Advance Directives For more information, please contact: [phone] * Full Code (Latest Code Status on File) Date Activated Date Inactivated Comments 08/15/2022 3:10 PM 08/18/2022 6:09 PM Care Teams New Car Sales Manager Relationship Specialty Start Date End Date Lucas Carter DO PCP - General Internal Medicine 08/15/22
--- OUTSIDE RECORDS SUMMARY | 2024-12-11 00:54 | XMS_ITS | Clinical Summary ---
Author Organization 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 Name Role Phone Unavailable Primary Care Provider [...] Care Team Description 11/13/2024 Travel 11/13/2024 Telephone [facility] [address] [place] [address] Carlyle Calderon MD 11/12/2024 Telephone [facility] [address] [place] [address] Carlyle Calderon MD from [...] Visit [facility] [address] [place] [address] Damian Diamond MD [address] [address] Health Maintenance Due Date Last Done Comments [...] age to complete this topic Insurance MEDICAID [place]
--- OUTSIDE RECORDS SUMMARY | 2024-12-11 00:54 | XMS_ITS | Clinical Summary ---
Author Organization [facility] Address [address] [place] [address] Care Team Providers Care Welding Rod Coater Name Role Phone Damian Sadler MD Primary Care Provider [phone] Source Comments [facility],non-owned Affiliates and Associated Physician Practices is amultiple site organization consisting of ambulatory clinics and hospital sitesin [place], [place], [place] and [place]. This disclosure is being madepursuant to the Care Everywhere program and may not contain all information available regarding this patient. Last updated 18.[facility] Allergies Active Allergy Reactions Criticality Noted Date [...] on file Legal Sex Female 11:41 AM KAIAKO KURA TUARUA Gender Identity Not on file Sexual Orientation [...] Resulting Agency Comment [facility] [address] [facility] [id number] us Nancy Cotto MD LAB - CHEMISTRY ORDERABLES Final Result [facility] INSURANCE BILL [address] [place] [address] * (ABNORMAL) COMPREHENSIVE METABOLIC PANEL (02/03/2024 1:03 AM [facility]) BUN 9 7 - 26 mg/dL 02/03/2024 [...] 7 - 23 02/03/2024 1:45 AM [facility] Osmolality Calculated 286 275 - 295 mOsm/kg 02/03/2024 1:45 AM [facility] Albumin/Globulin Ratio 1.3 1.1 - 2.3 02/03/2024 1:45 AM [facility] eGFR by CKD-EPI >90 >=90 mL/min/1.7 3 m2 02/03/2024 1:45 AM [facility] Blood BLOOD SPECIMEN / Unknown Venipuncture / Unknown 02/03/2024 1:03 AM CDT 02/03/2024 1:17 AM CDT Kaylee Reyes MD LAB - CHEMISTRY ORDERABLES Fi nal Result [facility] [address] [place] [address], [facility] [phone] from Last 3 Months or Most Recently Relevant to Health Maintenance Insurance [phone] (Work) [address] [place] [id number] MEDICAID [place] SELF PAY NO INSURANCE Member Subscriber Plan / Payer (Ef fective for All Dates) Name:Tita Luke Member ID:Not on file Relation to Subscriber:Not on file Name:TITA LUKE Subscriber ID:Not on file (Home) Address: [address] [place] [id number] Payer ID:Not on file Group ID:Not on file Type:Self Pay Address: [facility] Care Teams Welding Rod Coater Relationship Specialty Start Date End Date Damian Sadler MD PCP - General Internal Medicine 07/04/16
[2024-12-11 01:02] LABS: Basophils Absolute Auto 0.1 K/mm3 (0.0-0.1); Basophils Percent Auto 0.5 % (0.2-1.2); Eosinophils Absolute Auto 0.2 K/mm3 (0-0.3); Eosinophils Percent Auto 1.8 % (0-4.4); Hematocrit 41.1 % (37.0-47.0); Immature Granulocyte Absolute 0.06 K/mm3 (0.00-0.031); Immature Granulocyte Percent A 0.6 % (0-0.5); Lymphocytes Absolute Auto 3.32 K/mm3 (0.9-3.2); Lymphocytes Percent Auto 34.3 % (18.3-44.2); Mean Corpuscular HGB Conc 34.1 g/dl (32-36); Mean Corpuscular Hemoglobin 30.4 pg (26-34); Mean Corpuscular Volume 89.3 fl (80-100); Mean Platelet Volume 9.7 fl (7.4-10.4); Monocytes Absolute Auto 0.8 K/mm3 (0.1-0.6); Monocytes Percent Auto 8.7 % (2.6-8.5); Neutrophils Absolute Auto 5.2 K/mm3 (1.3-6.7); Neutrophils Percent Auto 54.1 % (45.5-73.1); Platelet Count Result 238 k/mm3 (150-375); Red Cell Distribution Width 12.6 % (11.5-14.5); White Blood Count 9.7 K/mm3 (4.5-10.0)
--- NOTE | 2024-12-11 01:06 | ED.FEMALEGU ---
HPI - Female Genitourinary General Chief complaint: Urogenital-Female Stated complaint: severe kidney pain Time Seen by Provider: 12/11/24 00:36 History of Present Illness HPI Narrative: Patient is a 44-year-old female who presents to the emergency department this evening complaining of bilateral flank pain, nausea and 1 episode of vomiting. Patient states that she was recently admitted to our facility for 1 week the end of last month due to multi-drug resistant UTI. Patient does have a history of kidney stones as well and at that time had 2 small bilateral kidney stones. She was discharged home after 7 day course of IV antibiotics and states that her symptoms of dysuria improved. States that she is currently still taking peridium and denies any urinary symptoms including dysuria or hematuria. Patient saw her primary care physician this past Saturday and had blood work and urinalysis at that time. Her PCP informed her that if she develops any flank pain to come to the emergency department for further evaluation. Patient denies any fevers or chills at home, no additional symptoms or concerns at this time. Related Data Home Medications ?Medication ?Instructions ?Recorded ?Confirmed ?Last Taken ?Type multivitamin 1 tablet PO DAILY 04/04/22 12/09/24 11/13/24 09:00 History nebivolol 10 mg tablet (Bystolic) 10 mg PO DAILY 10/21/24 12/09/24 11/14/24 02:20 History 10 mg omeprazole 20 mg capsule,delayed 20 mg PO DAILY 11/23/24 12/09/24 Unknown History release tamsulosin 0.4 mg capsule 0.4 mg PO DAILY PRN urinary 11/26/24 12/09/24 Unknown History retention Allergies Allergy/AdvReac Type Severity Reaction Status Date / Time ketorolac (From Toradol) Allergy Headache,Rash, Verified 12/11/24 00:23 Swollen tongue tramadol AdvReac Mild VOMITING/HE Verified 12/11/24 00:23 ADACHE hydralazine AdvReac Headache Verified 12/11/24 00:23 Review of Systems Review of Systems: All systems are reviewed and are negative unless stated otherwise in the HPI. [facility] Past Medical History Medical History Left ureteral stone Hypertension Gastroesophageal reflux disease Sleep paralysis, recurrent isolated Smoker Obesity Depression Multiple kidney stones Seasonal allergies Surgical History Surgical History H/O ureteroscopy 10/21/24 on the right due to proximal ureteral stone; Dr Gonzalez History of laparoscopic cholecystectomy on 04/25/23 PDC History of tubal ligation History of endometrial ablation (2009) History of hysterectomy (2015) History of open reduction and internal fixation (ORIF) procedure (2012) Left elbow. History of section 2000, 2001, 2009 Status post cystoscopy with ureteral stent placement Family History Family History Mother Diabetes mellitus Depression Alcoholism Father Hypertension Diabetes mellitus Sibling Congenital heart disease Son Asthma Grandparent Diabetes mellitus Cerebrovascular accident Social History Social History Social History: Surrogate medical decision maker: Bang Luke, spouse. Code status: Full code. Smoking packs per day: 0.5 Smoking cigarettes per day: 10.0 Years smoked: 32 Smoking pack-years: 16.00 Smoking status: Current every day smoker Tobacco type: cigarettes Second hand tobacco smoke exposure: Yes Alcohol intake: never Alcohol use details: Social alcohol use in moderation. Substance use: never Substance use type: does not use Do You Feel Safe in your Home?: Yes Lack of Transportation: No Lack of Food: Never True Current Housing: I Have Housing Concerned About Future Housing: No Difficulty Paying Gas/Electric Bills: No Difficulty Paying for Meds: No Currently Unemployed: YES Education: High School Diploma/GED Difficulty w/ Childcare or Family Care: No Living arrangements: with family Spiritual care concerns: No Exam Narrative: General: Alert, awake, afebrile, in no acute distress. HEENT: PERRL, no rhinorrhea, no post nasal drip, oropharynx clear. Neck: Trachea midline, no JVD, no lymphadenopathy. Cardiovascular: Regular rate and rhythm, no murmurs, rubs or gallops, no peripheral edema. Respiratory: Clear to auscultation bilaterally, no tachypnea, no wheezing, no rhonchi, no rubs, no respiratory distress. Abdomen: Soft, nontender, nondistended, no rebound, no guarding, no peritoneal signs. Musculoskeletal: No joint swelling or deformity, normal muscle tone. Skin: No rashes or petechia, no signs of infection. Psychiatric: Alert and oriented, normal behavior and judgment for situation. Neurological: Alert and oriented to person, place, and time. Follows all commands. No focal deficits, speech is clear and fluent. Course Vital Signs Vital signs: Vital Signs Pulse Rate 65 12/11/24 00:52 Respiratory Rate 18 12/11/24 00:52 Blood Pressure 135/100 H 12/11/24 00:52 Pulse Oximetry 99 12/11/24 00:52 Oxygen Delivery Room Air 12/11/24 00:52 Pulse Rate 75 12/11/24 01:52 Respiratory Rate 16 12/11/24 01:52 Blood Pressure 130/87 12/11/24 01:52 Pulse Oximetry 98 12/11/24 01:52 Oxygen Delivery Room Air 12/11/24 00:52 MDM - Female Genitourinary MDM Narrative Medical decision making narrative: The patient was evaluated by myself in the emergency department. History is obtained from patient who is an independent historian and physical exam was performed. External medical records were reviewed at this time. IV was established and pertinent tests were ordered. Patient was administered 1 L IV fluid bolus with normal saline, 4 mg of IV morphine for pain and 4 mg IV Zofran for nausea/vomiting. Laboratory results obtained revealing no acute process. Urinalysis revealed trace ketones, 1+ leuk esterases, 21-50 wbc's, 1+ bacteria, and budding yeast. Given that the patient is asymptomatic, I did not recommend treating this urinalysis with antibiotics at this time due to concern for worsening her multi-drug resistant recurrent UTIs and patient is in agreement. When compared to her most recent urinary tract infection, patient's urinalysis has significantly improved. Patient's urine culture from November 23 approximately 2 weeks ago revealed an E coli urinary tract infection that is susceptible to Augmentin, ceftazidime, cefepime, gentamicin, imipenem/meropenem, nitrofurantoin and Zosyn. Imaging studies obtained included CT abdomen and pelvis with IV contrast which was independently interpreted by me revealing hepatic steatosis otherwise unremarkable. Differential diagnosis considerations include renal colic, pyelonephritis, nephrolithiasis. Comorbidities impacting this visit include history of recurrent multi-drug resistant UTI and kidney stones. I have evaluated and discussed social determinants of health with the patient that could potentially impact subsequent diagnosis and treatment plans. On repeat assessment of the patient, reevaluation revealed that the patient is doing well and is in no acute distress. Patient symptoms have improved since she arrived to our emergency department. Repeat vital signs were all reviewed and noted to be stable. Differential diagnosis and treatment plan were discussed with the patient at bedside. Patient agrees with discussion and after shared medical decision making agrees with discharge. All questions were answered to the patient's satisfaction. Patient will follow up with her primary care physician/urologist in 3-5 days. Patient was provided with strict return precautions and instructed to return to the emergency department if any new or worsening symptoms develop. The patient was discharged in stable condition. Lab Data 12/11/24 00:46 12/11/24 00:46 Labs: Lab Results 12/11/24 Range/Units 00:46 WBC 9.7 (4.5-10.0) K/mm3 RBC 4.60 (4.2-5.4) M/mm3 Hgb 14.0 (12.0-15.0) g/dL Hct 41.1 (37.0-47.0) % MCV 89.3 (80-100) fl MCH 30.4 (26-34) pg MCHC 34.1 (32-36) g/dl RDW 12.6 (11.5-14.5) % Plt Count 238 (150-375) k/mm3 MPV 9.7 (7.4-10.4) fl Immature Gran % (Auto) 0.6 H (0-0.5) % Neut % (Auto) 54.1 (45.5-73.1) % Lymph % (Auto) 34.3 (18.3-44.2) % Ogle % (Auto) 8.7 H (2.6-8.5) % Eos % (Auto) 1.8 (0-4.4) % Baso % (Auto) 0.5 (0.2-1.2) % Lymph # (Auto) 3.32 H (0.9-3.2) K/mm3 Ogle # (Auto) 0.8 H (0.1-0.6) K/mm3 Eos # (Auto) 0.2 (0-0.3) K/mm3 Baso # (Auto) 0.1 (0.0-0.1) K/mm3 Abs Immat Gran (auto) 0.06 H (0.00-0.031) K/mm3 Absolute Neuts (auto) 5.2 (1.3-6.7) K/mm3 Absolute Nucleated RBC 0.000 (0.0-0.012) K/mm3 Nucleated RBC % 0.0 (0.0-0.2) % Sodium 139 (137-145) mmol/L Potassium 3.6 (3.4-5.0) mmol/L Chloride 104 (98-107) mmol/L Carbon Dioxide 22 (22-30) mmol/L Anion Gap 13 H (4-12) mmol/L BUN 15 (7-17) mg/dL Creatinine 0.53 L (0.7-1.0) mg/dL Estim Creat Clear Calc 118 ml/min Estimated GFR > 60 (59 - ) Glucose 84 (65-110) mg/dL Calcium 9.0 (8.4-10.2) mg/dL Magnesium 1.8 (1.6-2.3) mg/dL Total Bilirubin 0.5 (0.2-1.3) mg/dL AST 47 H (14-36) U/L ALT 75 H (6-35) U/L Alkaline Phosphatase 89 (38-126) U/L Total Protein 8.0 (6.3-8.2) g/dL Albumin 4.7 (3.5-5.1) g/dL Lipase 113 (23-300) U/L Urine Color Yellow (Yellow) Urine Appearance Clear (Clear) Urine pH 5.5 (5.0-9.0) Ur Specific [place] 1.026 (1.001-1.035) Urine Protein Trace (Negative) mg/dL Urine Glucose (UA) Negative (Negative) mg/dL Urine Ketones Trace H (Negative) mg/dL Ur Blood (Man) Negative (Negative) Urine Nitrate Negative (Negative) Urine Bilirubin Negative (Negative) Urine Urobilinogen 0.2 (<2.0) mg/dL Add Ur Microanalysis Reviewed Leukocyte Esterase Rfl 1+ H (Negative) ALEKSANDRA/UL Urine RBC 0-2 (0-2) /hpf Urine WBC 21-50 H (0-3) /hpf Ur Squamous Epith Cells Moderate (Few) /hpf Urine Bacteria 1+ H /hpf Urine Casts 0-2 Urine Mucus Present /lpf Urine Yeast (Budding) Present H (None) /hpf Discharge Plan Discharge Clinical Impression: Bilateral flank pain Patient Disposition: Home Condition: Improved Instructions: Antibiotic Form, Flank Pain (ED) Additional Instructions: Please follow-up with urologist/family doctor within the next 3-5 days. Return to the emergency department if any new or worsening symptoms develop. Patient Language: Georgian Prescriptions: No Action multivitamin Tablet 1 tablet PO DAILY ondansetron 4 mg tablet,disintegrating 4 mg PO Q8H Qty: 14 0RF nebivolol [Bystolic] 10 mg tablet 10 mg PO DAILY acetaminophen 500 mg capsule 1,000 mg PO Q6H PRN (Reason: pain) Qty: 30 0RF tamsulosin 0.4 mg capsule 0.4 mg PO DAILY PRN (Reason: urinary retention) Rx Instructions: kidney stones docusate sodium 100 mg Capsule 100 mg PO DAILY Qty: 30 0RF omeprazole 20 mg capsule,delayed release(DR/EC) 20 mg PO DAILY amlodipine 10 mg tablet See Rx Instructions .ROUTE .COMPLEX Qty: 90 0RF Dose Instruction: TAKE 1 TABLET BY MOUTH DAILY Rx Instructions: TAKE 1 TABLET BY MOUTH DAILY losartan 50 mg tablet See Rx Instructions .ROUTE .COMPLEX Qty: 180 0RF Dose Instruction: TAKE 1 TABLET BY MOUTH TWICE DAILY Rx Instructions: TAKE 1 TABLET BY MOUTH TWICE DAILY hydrochlorothiazide 25 mg tablet See Rx Instructions .ROUTE .COMPLEX Qty: 90 0RF Dose Instruction: TAKE 1 TABLET BY MOUTH EVERY MORNING Rx Instructions: TAKE 1 TABLET BY MOUTH EVERY MORNING Follow-up/Referrals: Lucas Carter DO [Primary Care Provider] - 3 Days Time of Disposition: 04:47
[2024-12-11 01:09] LABS: Alanine Aminotransferase 75 U/L (6-35); Albumin Level 4.7 g/dL (3.5-5.1); Alkaline Phosphatase 89 U/L (38-126); Anion Gap 13 mmol/L (4-12); Aspartate Amino Transferase 47 U/L (14-36); Bilirubin,Total 0.5 mg/dL (0.2-1.3); Blood Urea Nitrogen 15 mg/dL (7-17); Carbon Dioxide 22 mmol/L (22-30); Chloride 104 mmol/L (98-107); Estimated CRCL calculation 118 ml/min; Estimated Glomerular Filt Rate > 60; Glucose 84 mg/dL (65-110); Lipase 113 U/L (23-300); Magnesium 1.8 mg/dL (1.6-2.3); Potassium 3.6 mmol/L (3.4-5.0); Sodium 139 mmol/L (137-145)
[2024-12-11] MEDS: ONDANSETRON INJ 4 MG/2 ML VIAL IV PUSH (01:14)
[2024-12-11] MEDS: MORPHINE SULFATE (*CRX) 4 MG/ML INJ IV PUSH ×2 (01:16→02:32)
[2024-12-11 01:20] LABS: Add Urine Microscopic? YES; Appearance Urine Clear (Clear); Bacteria Urine 1+ /hpf; Bilirubin Urine Negative (Negative); Blood Urine Negative (Negative); Budding Yeast Urine Present /hpf; Color Urine Yellow (Yellow); Glucose Urine UA Negative (Negative); Ketones Urine Trace mg/dL (Negative); Leukocyte Esterase Ur 1+ LEU/UL (Negative); Mucus Urine Present /lpf; Need Manual Microscopic Reviewed; Nitrate Urine Negative (Negative); Non Pathogenic Casts 0-2; Protein Urine Trace mg/dL (Negative); RBC Urine 0-2 /hpf (0-2); Specific Grav Ur 1.026 (1.001-1.035); Squamous Epithelial Cell Urine Moderate /hpf (Few); Urobilinogen Urine 0.2 mg/dL (<2.0); WBC Urine 21-50 /hpf (0-3); pH Urine 5.5 (5.0-9.0)
[2024-12-11 01:52] VITALS: BP 130/87; PULSE 75; RESP 16; O2SAT 98
[2024-12-11 02:46] VITALS: BP 147/82; PULSE 66; RESP 20; O2SAT 97
[2024-12-11] MEDS: MORPHINE SULFATE (*CRX) 2 MG/ML INJ IV PUSH (04:36)
[2024-12-11 05:00] VITALS: BP 138/97; PULSE 73; RESP 16; TEMP 37.1; O2SAT 96
== END 2024-12-11 05:08 | disposition home or self-care (01) ==
PROVIDERS: Emergency Provider Emergency Medicine; PCP Internal Medicine
DX: R10.9 Unspecified abdominal pain (principal); I10 Essential (primary) hypertension; E66.9 Obesity, unspecified; Z68.33 Body mass index [BMI] 33.0-33.9, adult; K21.9 Gastro-esophageal reflux disease without esophagitis; G47.53 Recurrent isolated sleep paralysis; F32.A Depression, unspecified; F17.210 Nicotine dependence, cigarettes, uncomplicated; Z87.442 Personal history of urinary calculi; Z90.49 Acquired absence of other specified parts of digestive tract; Z90.710 Acquired absence of both cervix and uterus
CPT/HCPCS: 36415; 74177; 80053; 81001; 83690; 83735; 85025; 96361; 96374; 96375; 96376; 99284; J2270; J2405; J7030; Q9967

== ENCOUNTER 2024-12-27 22:06 | Emergency (ER) | payer OTHER, SELFPAY ==
--- NOTE | ~2024-12-27 | XR_ITS ---
XR chest 2V Ordering provider: Pau Sewell MD History: 44 years Female with . CHEST PAIN HTN . Comparison: March 12, 2023 FINDINGS: MEDIASTINUM: The cardiac silhouette is not enlarged. LUNGS: No infiltrates, effusions or pneumothorax. OTHER: No free air under the diaphragm. IMPRESSION: No acute cardiopulmonary pathology. Reviewed, dictated and finalized at location A.
--- OUTSIDE RECORDS SUMMARY | 2024-12-27 22:08 | XMS_ITS | Clinical Summary ---
Author Organization [facility] Address [address] [place] [address] Phone Care Team Providers Care Manager Icu Name Role Phone Unavailable Primary Care Provider Unavailabl e Allergies Active Allergy Reactions Criticality Noted Date Comments Hydralazine Vomiting 11/13/2024 Ketorolac Tromethamine Swelling,Vomiting ,Ot her (see Comments) 11/13/2024 Headache, tongue swells Tramadol Swelling,Vomiting 11/13/2024 Swelling of tongue, vomitung Medications No known medications Encounters Date Type Department Care Team Description 11/13/2024 Travel 11/13/2024 Telephone [facility] [address] [place] [address] Carlyle Calderon MD 11/12/2024 Telephone [facility] [address] [place] [address] Carlyle Calderon MD from Last [...] Visit [facility] Family [facility] [address] [place] [address] Damian Diamond MD [address] [address] Health Maintenance Due Date Last Done Comments Hepatitis C Virus (HCV) Screening 1979 Mammogram 1979 TdaP Immunization 1979 Hepatitis B Immunization (1 of 3 - 19+ 3-dose series) 1998 Pneumococcal Immunization Combined (1 of 2 - PCV) 1998 Discussion re Starting/Frequency of Mammograms 2019 Colonoscopy 02/26/2024 Colorectal Cancer Screening 02/26/2024 SARS-COV-2 Immunization ( - 2023- season) 2024 Influenza Immunization ([place] on Ended) [...]
--- OUTSIDE RECORDS SUMMARY | 2024-12-27 22:08 | XMS_ITS | Clinical Summary ---
Author Organization [facility] al Address [address] [place] [address] Care Team Providers Care Prospect Manager Name Role Phone Lucas Carter DO Primary Care Provider [phone] Allergies Active Allergy Reactions Criticality Noted Date Comments Hydralazine Headache,Vomiting Low 01/21/2024 Ketorolac Hives,Itching Medium 10/17/2017 Tramadol Hives,Urticaria Medium 08/27/2016 Medications omeprazole (PriLOSEC) 20 mg capsuleIndications :Treatment of Non-Bleeding Gastric Disorder Take 1 capsule (20 mg total) by mouth specialty transformer assembler before breakfast Active MULTIVIT-MINERALS/ FERROUS FUM (MULTI VITAMIN ORAL)Indications:h ealth Take 1 tablet by mouth specialty transformer assembler before breakfast Active ondansetron ODT (ZOFRAN-ODT) 4 mg disintegrating tablet Take 1 tablet (4 mg total) by mouth every 8 (eight) hours as needed for nausea or vomiting 20 tablet 3 Active losartan (COZAAR) 50 mg tabletIndications: hypertension Take 1 tablet (50 mg total) by mouth 2 (two) times a day Active hydroCHLOROthiazid e (HYDRODIURIL) 25 mg tabletIndications: hypertension Take 1 tablet (25 mg total) by mouth specialty transformer assembler before breakfast Active nebivoloL (BYSTOLIC) 10 mg tabletIndications: hypertension Take 1 tablet (10 mg total) by mouth every other day 4 Active amLODIPine (NORVASC) 10 mg tabletIndications: hypertension Take 1 tablet (10 mg total) by mouth nightly 4 Active ibuprofen 200 mg tab/cap Take 2 tablet/capsul e (400 mg total) by mouth every 6 (six) hours as needed for pain Active HYDROcodone-acetam inophen (NORCO) 5-325 mg per tabletIndications: Pain Take 1 tablet by mouth every 6 (six) hours as needed for pain 8 tablet 4 Active pregabalin (LYRICA) 150 mg capsule Take 1 capsule (150 mg total) by mouth nightly 90 capsule 5 Active cyclobenzaprine (FLEXERIL) 10 mg tablet TAKE 1 TABLET(10 MG) BY MOUTH THREE TIMES DAILY NEEDED FOR MUSCLE SPASMS 90 tablet 1 5 Active meloxicam (MOBIC) 15 mg tablet TAKE 1 TABLET(15 MG) BY MOUTH DAILY 30 tablet 5 Active Active Problems Problem Noted Date Diagnosed [...] CDT - 10/31/2024 10:51 PM CDT Emergency [facility] Emergency Department 1 [place] [address] Yanni Garcia MD Flank pain (Primary Dx) [...] [place] Maternal Grandfather Beka Sr. Maternal Grandmother [place] Mother Lisae Paternal Grandfather Dusty Sister Sarai Social History [...] on file Legal Sex Female 9:06 PM PLASTIC DUPLICATOR Gender Identity Female 10/01/2023 8:44 AM PLASTIC DUPLICATOR Sexual Orientation Straight 10/01/2023 8: 44 AM PLASTIC DUPLICATOR Obstetrics History Para Term AB IAB SAB [...] cm (5' 3 ) 06/29/2024 7:50 AM PLASTIC DUPLICATOR Body Mass Index 32.57 06/29/2024 7:50 AM PLASTIC DUPLICATOR Plan of Treatment Health Maintenance Due Date [...] home safety. Medical Devices Implanted Type Area Molder Feeder Device Identifier Shelf Expiration Date Model [...] hCG, urine (10/31/2024 6:32 PM CDT) Pathologist [facility] Emergency Department HCG, ur, POC Negative Negative Lot Number [id number] QC Backgroud Clear Acceptable QC Control Line Acceptable Urine 10/31/2024 6:32 PM CDT Result [facility] Yanni Garcia MD POINT OF CARE TEST ORDERABL ES Final Result * eGFR (10/31/2024 5:42 PM CDT) Pathologist [facility] Emergency Department eGFR >90 >=60 mL/min/1. 73 m2 Comment: [...] MD LAB BLOOD ORDERABLES Final R esult [facility] [place] [address] * (ABNORMAL) Differential, auto (10/31/2024 5:42 PM CDT) Neutrophil abs 5.6 1.5 - 6.5 K/cumm Imm gran abs 0.0 0.0 - 0.1 K/cumm [facility] Lymphocyte abs 2.3 0.8 - 3.3 K/cumm [facility] Monocyte abs 0.9(H) 0.2 - 0.8 K/cumm [facility] Eosinophil abs 0.1 0.0 - 0.5 K/cumm [facility] Basophil abs 0.1 0.0 - 0.1 K/cumm [facility] Neutrophil pct 62.4 % [facility] Comment: Interpretive Data Percent cell count reference ranges are not reported, since discordance with absolute values may lead to misinterpretation of CBC data. Current Interpretive Data was last revised on 2017. Imm gran pct 0.3 % [facility] Comment: Interpretive Data Percent cell count reference ranges are not reported, since discordance with absolute values may lead to misinterpretation of CBC data. Current Interpretive Data was last revised on 2017. Lymphocyte pct 25.2 % [facility] Comment: Interpretive Data Percent cell count reference ranges are not reported, since discordance with absolute values may lead to misinterpretation of CBC data. Current Interpretive Data was last revised on 2017. Monocyte pct 10.0 % [facility] Comment: Interpretive Data Percent cell count reference ranges are not reported, since discordance with absolute values may lead to misinterpretation of CBC data. Current Interpretive Data was last revised on 2017. Eosinophil pct 1.5 % [facility] Comment: Interpretive Data Percent cell count reference ranges are not reported, since discordance with absolute values may lead to misinterpretation of CBC data. Current Interpretive Data was last revised on 2017. Basophil pct 0.6 % [facility] Comment: Interpretive Data Percent cell count reference ranges are not reported, since discordance with absolute values may lead to misinterpretation of CBC data. Current Interpretive Data was last revised on 2017. Blood 10/31/2024 5:42 PM CDT 10/31/2024 5:51 PM CDT Severo Mckeon MD LAB BLOOD ORDERABLES Final R esult Performing Organization Address City/[facility]/ZIP Co de Phone Number [facility] [place] [address] * Urinalysis reflex to microscopic and culture Urine (10/31/2024 5:42 PM CDT) Color, ur Straw Yellow Clarity, ur Clear Clear [facility] Specific gravity, ur 1.011 1.003 - 1.030 [facility] pH, urine 5.5 [facility] Comment: Interpretive Data U rine pH is affected by diet, medications, systemic acid-base disturbances, and renal tubular function. pH may affect urinary stone formation. For example, urine pH below 6.0 may help reduce the tendency for calcium phosphate stones and pH greater than 6.0 may reduce the tendency for uric acid stone formation. Source: [facility] Current Interpretive Data was last revised on 2017 Protein, ur ql Negative Negative [facility] Glucose, ur ql Negative Negative [facility] Ketones, ur Negative Negative [facility] Bilirubin, ur Negative Negative [facility] Blood, ur Negative Negative [facility] Urobilinogen, ur <2.0 <2.0 mg/dL [facility] Nitrite, ur Negative Negative [facility] Leukocyte esterase, ur Negative Negative [facility] UA reflex comment Reflex conditions for microscopic UA and culture not met. [facility] Urine 10/31/2024 5:42 PM CDT 10/31/2024 5:49 PM CDT Minda Gurrola MD LAB MICROBIOLOGY - GENER AL ORDERABLES Final Result [facility] [place] [address] * (ABNORMAL) CBC with auto differential (10/31/2024 5:42 PM CDT) [facility] WBC 8.9 3.8 - 9.9 K/cumm Hgb 16.1(H) 11.9 - 15.5 g/dL [facility] Hct 45.8(H) 35.6 - 45.5 % [facility] Plt 319 150 - 400 K/cumm [facility] MPV 9.2 9.1 - 12.3 fL [facility] RBC 5.35(H) 3.90 - 5.20 M/cumm [facility] MCV 85.6 81.3 - 96.4 fL [facility] MCH 30.1 27.1 - 33.3 pg [facility] MCHC 35.2 32.3 - 35.7 g/dL [facility] RDW CV 12.5 11.1 - 14.9 % [facility] RDW SD 38.8 35.7 - 48.1 fL [facility] NRBC abs 0.00 0.00 - 0.01 K/cumm [facility] Blood Venous blood specimen / Unknown 10/31/2024 5:42 PM CDT 10/31/2024 5:51 PM CDT us Yanni Garcia MD LAB BLOOD ORDERABLES Final Result Performing Organization Address City/[facility]/ZIP Co de Phone Number [facility] [place] [address] * Lipase (10/31/2024 5:42 PM CDT) [facility] Lipase 41 10 - 99 Units/L Blood Venous blood specimen / Unknown 10/31/2024 5:42 PM CDT 10/31/2024 5:51 PM CDT Yanni Garcia MD LAB BLOOD ORDERABLES Final Result [facility] [place] [address] * (ABNORMAL) Comprehensive metabolic panel (10/31/2024 5:42 PM CDT) Sodium 142 135 - 145 mmol/L Potassium, pl 4.2 3.3 - 4.9 mmol/L [facility] Chloride 105 97 - 110 mmol/L [facility] CO2 24 22 - 32 mmol/L [facility] Anion gap 13 2 - 15 mmol/L [facility] BUN 9 6 - 25 mg/dL [facility] Creatinine 0.65 0.60 - 1.10 mg/dL [facility] Glucose 84 70 - 199 mg/dL [facility] Comment: Interpretive Data Fasting glucose >/= [...] 10.3 8.5 - 10.3 mg/dL [facility] Bilirubin, total 0.3 0.1 - 1.2 mg/dL [facility] Protein, pl 8.3 6.5 - 8.5 g/dL [facility] Albumin 4.7 3.5 - 5.0 g/dL [facility] Alk phos 105 40 - 130 Units/L [facility] ALT 68(H) 7 - 45 Units/L [facility] AST 48(H) 10 - 45 Units/L [facility] Blood Venous blood specimen / Unknown 10/31/2024 5:42 PM CDT 10/31/2024 5:51 PM CDT us Yanni Garcia MD LAB BLOOD ORDERABLES Final Result [facility] [place] [address] * ECG 12-LEAD (10/31/2024 4:30 PM CDT) Narrative [facility] - 10/31/2024 4:30 PM CDT Yanni Garcia [...] in the ED Yanni Garcia MD 10/31/24 8509 us Yanni Garcia MD ECG ORDERABLES Final Resul t [facility] from Last 3 Months Insurance IDSD [facility] CHOICE PLUS [facility] H[facility]/PPO Address: [address] [address] [place], [place] [address] [place] [address] IDPA IDPA Advance Directives For more information, please contact: [phone] * Full Code (Latest Code Status on File) Date Activated Date Inactivated Comments 08/15/2022 3:10 PM 08/18/2022 6:09 PM Care Teams Prospect Manager Relationship Specialty Start Date End Date Lucas Carter DO PCP - General Internal Medicine 08/15/22
--- OUTSIDE RECORDS SUMMARY | 2024-12-27 22:08 | XMS_ITS | Clinical Summary ---
Author Organization [facility] Address [address] [place] [address] Care Team Providers Care Kiln Furniture Caster Name Role Phone Damian Sadler MD Primary Care Provider [phone] Source Comments [facility],non-owned Affiliates and Associated Physician Practices is amultiple site organization consisting of ambulatory clinics and hospital sitesin [place], [place], [place] and [place]. This disclosure is being madepursuant to the Care Everywhere program and may not contain all information available regarding this patient. 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1 - 2.3 02/03/2024 1:45 AM T [facility] eGFR by CKD-EPI >90 >=90 mL/min/1.7 3 m2 02/03/2024 1:45 AM T [facility] Blood BLOOD SPECIMEN / Unknown Venipuncture / Unknown 02/03/2024 1:03 AM CDT 02/03/2024 1:17 AM CDT Kaylee Reyes MD LAB - CHEMISTRY ORDERABLES Fi nal Result [facility] [address] [place] [address], [facility] [phone] from Last 3 Months or Most Recently Relevant to Health Maintenance Insurance [phone] (Work) [address] [place] [id number] MEDICAID [place] SELF PAY NO INSURANCE Member Subscriber Plan / Payer (Ef fective for All Dates) Name:Tita Luke Member ID:Not on file Relation to Subscriber:Not on file Name:TITA LUKE Subscriber ID:Not on file (Home) Address: [address] [place] [id number] Payer ID:Not on file Group ID:Not on file Type:Self Pay Address: [facility] Care Teams Kiln Furniture Caster Relationship Specialty Start Date End Date Damian Sadler MD PCP - General Internal Medicine 07/04/16
--- OUTSIDE RECORDS SUMMARY | 2024-12-27 22:08 | XMS_ITS | Referral Summary ---
Author Organization [facility] Address [address] [place] [address] Care Team Providers Care Library Circulation Assistant Name Role Phone Lucas Cartre DO Primary Care Provider [phone] Encounters Date Type Department Care Team Description 10/31/2024 4:48 PM CDT - 10/31/2024 10:51 PM CDT Emergency [facility] Emergency Department [address] [place] [address] Yanni Garcia MD Flank pain (Primary Dx) Discharge Disposition: Discharge to home or self care from Last 3 Months Allergies Active Allergy Reactions Criticality Noted Date Comments Hydralazine Headache,Vomiting Low 01/21/2024 Ketorolac Hives,Itching Medium 10/17/2017 Tramadol Hives,Urticaria Medium 08/27/2016 Medications omeprazole (PriLOSEC) 20 mg capsuleIndications :Treatment of Non-Bleeding Gastric Disorder Take 1 capsule (20 mg total) by mouth roof foreman before breakfast Active MULTIVIT-MINERALS/ FERROUS FUM (MULTI VITAMIN ORAL)Indications:h ealth Take 1 tablet by mouth roof foreman before breakfast Active ondansetron ODT (ZOFRAN-ODT) 4 [...] 1 tablet (25 mg total) by mouth roof foreman before breakfast Active nebivoloL (BYSTOLIC) 10 mg [...] on file Legal Sex Female 9:06 PM PAINTINGS CONSERVATOR Gender Identity Female 10/01/2023 8:44 AM PAINTINGS CONSERVATOR Sexual Orientation Straight 10/01/2023 8: 44 AM PAINTINGS CONSERVATOR Last Filed Vital Signs Vital Sign Reading [...] cm (5' 3 ) 06/29/2024 7:50 AM PAINTINGS CONSERVATOR Body Mass Index 32.57 06/29/2024 7:50 AM PAINTINGS CONSERVATOR Plan of Treatment Not on file Goals [...] Reduce the likelihood of falling Lifestyle No Freeman, Steph Miranda, KHADAR Note: Below are four things you [...] on stairs Contact your local community or [facility] for information on exercise, fall prevention programs, or options for improving home safety. Medical Devices Implanted Type Area Horseradish Maker Device Identifier Shelf Expiration Date Model [...] BLOOD ORDERABLES Final R esult [facility] Department [place] [address] * (ABNORMAL) Differential, auto (10/31/2024 5:42 PM CDT) Neutrophil abs 5.6 1.5 - 6.5 K/cumm Imm gran abs 0.0 0.0 - 0.1 K/cumm [facility] Lymphocyte abs 2.3 0.8 - 3.3 K/cumm [facility] Monocyte abs 0.9(H) 0.2 - 0.8 K/cumm [facility] Eosinophil abs 0.1 0.0 - 0.5 K/cumm [facility] Basophil abs 0.1 0.0 - 0.1 K/cumm [facility] Neutrophil pct 62.4 % [facility] Comment: Interpretive Data Percent cell count reference ranges are not reported, since discordance with absolute values may lead to misinterpretation of CBC data. Current Interpretive Data was last revised on 2017. Imm gran pct 0.3 % [facility] Comment: Interpretive Data Percent cell count reference ranges are not reported, since discordance with absolute values may lead to misinterpretation of CBC data. Current Interpretive Data was last revised on 2017. Lymphocyte pct 25.2 % [facility] Comment: Interpretive Data Percent cell count reference ranges are not reported, since discordance with absolute values may lead to misinterpretation of CBC data. Current Interpretive Data was last revised on 2017. Monocyte pct 10.0 % [facility] Comment: Interpretive Data Percent cell count reference ranges are not reported, since discordance with absolute values may lead to misinterpretation of CBC data. Current Interpretive Data was last revised on 2017. Eosinophil pct 1.5 % [facility] Comment: Interpretive Data Percent cell count reference ranges are not reported, since discordance with absolute values may lead to misinterpretation of CBC data. Current Interpretive Data was last revised on 2017. Basophil pct 0.6 % [facility] Comment: Interpretive Data Percent cell count reference ranges are not reported, since discordance with absolute values may lead to misinterpretation of CBC data. Current Interpretive Data was last revised on 2017. Blood 10/31/2024 5:42 PM CDT 10/31/2024 5:51 PM CDT Severo Mckeon MD LAB BLOOD ORDERABLES Final R esult Performing Organization Address City/State/[facility] Co de Phone Number [facility] Department [place] [address] * Urinalysis reflex to microscopic and culture Urine (10/31/2024 5:42 PM CDT) Color, ur Straw Yellow Clarity, ur Clear Clear [facility] Specific gravity, ur 1.011 1.003 - 1.030 [facility] pH, urine 5.5 [facility] Comment: Interpretive Data U rine pH is affected by diet, medications, systemic acid-base disturbances, and renal tubular function. pH may affect urinary stone formation. For example, urine pH below 6.0 may help reduce the tendency for calcium phosphate stones and pH greater than 6.0 may reduce the tendency for uric acid stone formation. Source: [facility] Current Interpretive Data was last revised on 2017 Protein, ur ql Negative Negative [facility] Glucose, ur ql Negative Negative [facility] Ketones, ur Negative Negative [facility] Bilirubin, ur Negative Negative [facility] Blood, ur Negative Negative [facility] Urobilinogen, ur <2.0 <2.0 mg/dL [facility] Nitrite, ur Negative Negative [facility] Leukocyte esterase, ur Negative Negative [facility] UA reflex comment Reflex conditions for microscopic UA and culture not met. [facility] Urine 10/31/2024 5:42 PM CDT 10/31/2024 5:49 PM CDT Minda Gurrola MD LAB MICROBIOLOGY - GENER AL ORDERABLES Final Result Performing Organization Address City/[facility] Co de Phone Number [facility] [place] [address] * (ABNORMAL) CBC with auto differential (10/31/2024 5:42 PM CDT) Pathologist [facility] WBC 8.9 3.8 - 9.9 K/cumm Hgb 16.1(H) 11.9 - 15.5 g/dL [facility] Hct 45.8(H) 35.6 - 45.5 % [facility] Plt 319 150 - 400 K/cumm [facility] MPV 9.2 9.1 - 12.3 fL [facility] RBC 5.35(H) 3.90 - 5.20 M/cumm [facility] MCV 85.6 81.3 - 96.4 fL [facility] MCH 30.1 27.1 - 33.3 pg [facility] MCHC 35.2 32.3 - 35.7 g/dL [facility] RDW CV 12.5 11.1 - 14.9 % [facility] RDW SD 38.8 35.7 - 48.1 fL [facility] NRBC abs 0.00 0.00 - 0.01 K/cumm [facility] Blood Venous blood specimen / Unknown 10/31/2024 5:42 PM CDT 10/31/2024 5:51 PM CDT us Yanni Garcia MD LAB BLOOD ORDERABLES Final Result [facility] Department [place] [address] * Lipase (10/31/2024 5:42 PM CDT) Pathologist [facility] Lipase 41 10 - 99 Units/L Blood Venous blood specimen / Unknown 10/31/2024 5:42 PM CDT 10/31/2024 5:51 PM CDT Yanni Garcia MD LAB BLOOD ORDERABLES Final Result [facility] Department [place] [address] * (ABNORMAL) Comprehensive metabolic panel (10/31/2024 5:42 PM CDT) Sodium 142 135 - 145 mmol/L Potassium, pl 4.2 3.3 - 4.9 mmol/L [facility] Chloride 105 97 - 110 mmol/L [facility] CO2 24 22 - 32 mmol/L [facility] Anion gap 13 2 - 15 mmol/L [facility] BUN 9 6 - 25 mg/dL [facility] Creatinine 0.65 0.60 - 1.10 mg/dL [facility] Glucose 84 70 - 199 mg/dL [facility] Comment: Interpretive Data Fasting glucose [...] Calcium 10.3 8.5 - 10.3 mg/dL [facility] Bilirubin, total 0.3 0.1 - 1.2 mg/dL [facility] Protein, pl 8.3 6.5 - 8.5 g/dL [facility] Albumin 4.7 3.5 - 5.0 g/dL [facility] Alk phos 105 40 - 130 Units/L [facility] ALT 68(H) 7 - 45 Units/L [facility] AST 48(H) 10 - 45 Units/L [facility] Blood Venous blood specimen / Unknown 10/31/2024 5:42 PM CDT 10/31/2024 5:51 PM CDT Yanni Garcia MD LAB BLOOD ORDERABLES Final Result [facility] [place] [address] * ECG 12-LEAD (10/31/2024 4:30 PM CDT) Narrative [facility] - 10/31/2024 4:30 PM CDT Yanni Garcia [...] in the ED Yanni Garcia MD 10/31/24 8865 us Yanni Garcia MD ECG ORDERABLES Final Resul t [facility] from Last 3 Months Insurance IDPA [facility] CHO[facility] IDPA IDPA Advance Directives For more information, please contact: [phone] * Full Code (Latest Code Status on File) Date Activated Date Inactivated Comments 08/15/2022 3:10 PM 08/18/2022 6:09 PM Care Teams Library Circulation Assistant Relationship Specialty Start Date End Date Lucas Carter DO PCP - General Internal Medicine 08/15/22
--- OUTSIDE RECORDS SUMMARY | 2024-12-27 22:08 | XMS_ITS | CONTINUITY OF CARE DOCUMENT ---
Author Name [email or web address] Address Unknown Organization [facility] Address [address] [place] [address] Phone [phone] Care Team Providers Care Book Canvasser Name Role Phone William CURIEL, Herlinda Unavailable SHAWNEE CURIEL, NABIL Schmidt Unavailable [phone] INSURANCE PROVIDERS Payer name Policy type / Coverage type Bj red alliance party ID [employer] Medicaid [id number] [facility] [id number]
[2024-12-27 22:21] VITALS: BP 160/118; PULSE 91; RESP 20; TEMP 36.5; O2SAT 100
--- NOTE | 2024-12-27 22:21 | ECG_ITS ---
Test Date: 2024-12-27 22:24:41 Measurements Intervals Vest Rate: 81 P: 47 MT: 187 QRS: 16 QRSD: 89 T: 55 QT: 380 QTc: 444 Interpretive Statements SINUS RHYTHM NONSPECIFIC T-WAVE ABNORMALITY Compared to ECG 10/12/2024 22:45:39 T-wave abnormality now present Left ventricular hypertrophy no longer present ST (T wave) deviation no longer present Electronically Signed On 12-28-2024 10:45:48 CDT by Volodymyr Alan M.D.
[2024-12-27 22:37] LABS: BEDSIDEPREGUCG Negative (Negative)
[2024-12-27 22:39] LABS: Basophils Percent Auto 0.4 % (0.2-1.2); Eosinophils Absolute Auto 0.2 K/mm3 (0-0.3); Eosinophils Percent Auto 2.3 % (0-4.4); Hemoglobin 13.9 g/dL (12.0-15.0); Immature Granulocyte Absolute 0.02 K/mm3 (0.00-0.031); Immature Granulocyte Percent A 0.3 % (0-0.5); Lymphocytes Absolute Auto 2.75 K/mm3 (0.9-3.2); Mean Corpuscular HGB Conc 34.8 g/dl (32-36); Mean Corpuscular Hemoglobin 30.9 pg (26-34); Mean Corpuscular Volume 88.9 fl (80-100); Mean Platelet Volume 9.1 fl (7.4-10.4); Monocytes Absolute Auto 0.5 K/mm3 (0.1-0.6); Monocytes Percent Auto 6.6 % (2.6-8.5); Neutrophils Absolute Auto 3.5 K/mm3 (1.3-6.7); Neutrophils Percent Auto 50.4 % (45.5-73.1); Platelet Count Result 239 k/mm3 (150-375); Red Cell Distribution Width 13.2 % (11.5-14.5); White Blood Count 6.9 K/mm3 (4.5-10.0)
[2024-12-27 22:45] LABS: Add Urine Microscopic? YES; Appearance Urine Clear (Clear); Bacteria Urine Rare /hpf; Bilirubin Urine Negative (Negative); Blood Urine 1+ (Negative); Color Urine Yellow (Yellow); Glucose Urine UA Negative (Negative); Ketones Urine Negative (Negative); Leukocyte Esterase Ur Negative LEU/UL (Negative); Nitrate Urine Negative (Negative); Non Pathogenic Casts 0-2; Protein Urine Trace mg/dL (Negative); Specific Grav Ur 1.032 (1.001-1.035); Squamous Epithelial Cell Urine Occasional /hpf (Few); pH Urine 5.5 (5.0-9.0)
[2024-12-27 22:50] LABS: Alanine Aminotransferase 57 U/L (6-35); Albumin Level 4.3 g/dL (3.5-5.1); Alkaline Phosphatase 87 U/L (38-126); Anion Gap 10 mmol/L (4-12); Aspartate Amino Transferase 59 U/L (14-36); Bilirubin,Total 0.4 mg/dL (0.2-1.3); Blood Urea Nitrogen 15 mg/dL (7-17); Carbon Dioxide 20 mmol/L (22-30); Chloride 110 mmol/L (98-107); Estimated CRCL calculation 100 ml/min; Estimated Glomerular Filt Rate > 60; Glucose 141 mg/dL (65-110); Lipase 80 U/L (23-300); Potassium 3.6 mmol/L (3.4-5.0); Sodium 140 mmol/L (137-145)
[2024-12-27 22:51] LABS: INR 1.1; Prothrombin Time 14.4 Seconds (11.1-14.7)
[2024-12-27 22:52] LABS: Partial Thromboplastin Time 27.2 Seconds (22.3-36.8)
[2024-12-27 23:03] LABS: Troponin I < 0.012 ng/mL (0.000-0.034)
--- OUTSIDE RECORDS SUMMARY | 2024-12-28 00:23 | XMS_ITS | Referral Summary ---
Author Organization [facility] Address [address] [place] [address] Care Team Providers Care Lawn Caretaker Name Role Phone Lucas Carter DO Primary Care Provider [phone] Encounters Date Type Department Care Team Description 10/31/2024 4:48 PM CDT - 10/31/2024 10:51 PM CDT Emergency [facility] Emergency Department [address] [place] [address] Yanni Garcia MD Flank pain (Primary Dx) Discharge Disposition: Discharge to home or self care from Last 3 Months Allergies Active Allergy Reactions Criticality Noted Date Comments Hydralazine Headache,Vomiting Low 01/21/2024 Ketorolac Hives,Itching Medium 10/17/2017 Tramadol Hives,Urticaria Medium 08/27/2016 Medications omeprazole (PriLOSEC) 20 mg capsuleIndications :Treatment of Non-Bleeding Gastric Disorder Take 1 capsule (20 mg total) by mouth early head start teacher before breakfast Active MULTIVIT-MINERALS/ FERROUS FUM (MULTI VITAMIN ORAL)Indications:h ealth Take 1 tablet by mouth early head start teacher before breakfast Active ondansetron ODT (ZOFRAN-ODT) [...] tablet (25 mg total) by mouth early head start teacher before breakfast Active nebivoloL (BYSTOLIC) 10 [...] Date Smoking Tobacco: Every Day Cigarettes 0.8 33.1 Started: 11/11/1991 Smokeless Tobacco: Never Tobacco [...] on file Legal Sex Female 9:06 PM RELIEF MANAGER Gender Identity Female 10/01/2023 8:44 AM RELIEF MANAGER Sexual Orientation Straight 10/01/2023 8: 44 AM RELIEF MANAGER Last Filed Vital Signs Vital Sign Reading [...] cm (5' 3 ) 06/29/2024 7:50 AM RELIEF MANAGER Body Mass Index 32.57 06/29/2024 7:50 AM RELIEF MANAGER Plan of Treatment Not on file Goals [...] on stairs Contact your local community or [facility] for information on exercise, fall prevention programs, or options for improving home safety. Medical Devices Implanted Type Area Rope Maker Device Identifier Shelf Expiration Date Model [...] LAB BLOOD ORDERABLES Final R esult [facility] Department [place] [address] * (ABNORMAL) Differential, auto (10/31/2024 5:42 PM CDT) Neutrophil abs 5.6 1.5 - 6.5 K/cumm Imm gran abs 0.0 0.0 - 0.1 K/cumm [facility] Lymphocyte abs 2.3 0.8 - 3.3 K/cumm [facility] Monocyte abs 0.9(H) 0.2 - 0.8 K/cumm [facility] Eosinophil abs 0.1 0.0 - 0.5 K/cumm [facility] Basophil abs 0.1 0.0 - 0.1 K/cumm [facility] Neutrophil pct 62.4 % [facility] Comment: Interpretive Data Percent cell count reference ranges are not reported, since discordance with absolute values may lead to misinterpretation of CBC data. Current Interpretive Data was last revised on 2017. Imm gran pct 0.3 % [facility] Comment: Interpretive Data Percent cell count reference ranges are not reported, since discordance with absolute values may lead to misinterpretation of CBC data. Current Interpretive Data was last revised on 2017. Lymphocyte pct 25.2 % [facility] Comment: Interpretive Data Percent cell count reference ranges are not reported, since discordance with absolute values may lead to misinterpretation of CBC data. Current Interpretive Data was last revised on 2017. Monocyte pct 10.0 % [facility] Comment: Interpretive Data Percent cell count reference ranges are not reported, since discordance with absolute values may lead to misinterpretation of CBC data. Current Interpretive Data was last revised on 2017. Eosinophil pct 1.5 % [facility] Comment: Interpretive Data Percent cell count reference ranges are not reported, since discordance with absolute values may lead to misinterpretation of CBC data. Current Interpretive Data was last revised on 2017. Basophil pct 0.6 % [facility] Comment: Interpretive Data Percent cell count reference ranges are not reported, since discordance with absolute values may lead to misinterpretation of CBC data. Current Interpretive Data was last revised on 2017. Blood 10/31/2024 5:42 PM CDT 10/31/2024 5:51 PM CDT Severo Mckeon MD LAB BLOOD ORDERABLES Final R esult Performing Organization Address City/State/[facility] Co de Phone Number [facility] Department [place] [address] * Urinalysis reflex to microscopic and culture Urine (10/31/2024 5:42 PM CDT) Color, ur Straw Yellow Clarity, ur Clear Clear [facility] Specific gravity, ur 1.011 1.003 - 1.030 [facility] pH, urine 5.5 [facility] Comment: Interpretive Data U rine pH is affected by diet, medications, systemic acid-base disturbances, and renal tubular function. pH may affect urinary stone formation. For example, urine pH below 6.0 may help reduce the tendency for calcium phosphate stones and pH greater than 6.0 may reduce the tendency for uric acid stone formation. Source: [facility] Current Interpretive Data was last revised on 2017 Protein, ur ql Negative Negative [facility] Glucose, ur ql Negative Negative [facility] Ketones, ur Negative Negative [facility] Bilirubin, ur Negative Negative [facility] Blood, ur Negative Negative [facility] Urobilinogen, ur <2.0 <2.0 mg/dL [facility] Nitrite, ur Negative Negative [facility] Leukocyte esterase, ur Negative Negative [facility] UA reflex comment Reflex conditions for microscopic UA and culture not met. [facility] Urine 10/31/2024 5:42 PM CDT 10/31/2024 5:49 PM CDT Minda Gurrola MD LAB MICROBIOLOGY - GENER AL ORDERABLES Final Result Performing Organization Address City[facility] Co de Phone Number [facility] Department [place] [address] * (ABNORMAL) CBC with auto differential (10/31/2024 5:42 PM CDT) Pathologist [facility] WBC 8.9 3.8 - 9.9 K/cumm Hgb 16.1(H) 11.9 - 15.5 g/dL [facility] Hct 45.8(H) 35.6 - 45.5 % [facility] Plt 319 150 - 400 K/cumm [facility] MPV 9.2 9.1 - 12.3 fL [facility] RBC 5.35(H) 3.90 - 5.20 M/cumm [facility] MCV 85.6 81.3 - 96.4 fL [facility] MCH 30.1 27.1 - 33.3 pg [facility] MCHC 35.2 32.3 - 35.7 g/dL [facility] RDW CV 12.5 11.1 - 14.9 % [facility] RDW SD 38.8 35.7 - 48.1 fL [facility] NRBC abs 0.00 0.00 - 0.01 K/cumm [facility] Blood Venous blood specimen / Unknown 10/31/2024 5:42 PM CDT 10/31/2024 5:51 PM CDT us Yanni Garcia MD LAB BLOOD ORDERABLES Final Result [facility] Department [place] [address] * Lipase (10/31/2024 5:42 PM CDT) Pathologist [facility] Lipase 41 10 - 99 Units/L Blood Venous blood specimen / Unknown 10/31/2024 5:42 PM CDT 10/31/2024 5:51 PM CDT Yanni Garcia MD LAB BLOOD ORDERABLES Final Result [facility] Department [place] [address] * (ABNORMAL) Comprehensive metabolic panel (10/31/2024 5:42 PM CDT) Sodium 142 135 - 145 mmol/L Potassium, pl 4.2 3.3 - 4.9 mmol/L [facility] Chloride 105 97 - 110 mmol/L [facility] CO2 24 22 - 32 mmol/L [facility] Anion gap 13 2 - 15 mmol/L [facility] BUN 9 6 - 25 mg/dL [facility] Creatinine 0.65 0.60 - 1.10 mg/dL [facility] Glucose 84 70 - 199 mg/dL [facility] Calcium 10.3 8.5 - 10.3 mg/dL [facility] Bilirubin, total 0.3 0.1 - 1.2 mg/dL [facility] Protein, pl 8.3 6.5 - 8.5 g/dL [facility] Albumin 4.7 3.5 - 5.0 g/dL [facility] Alk phos 105 40 - 130 Units/L [facility] ALT 68(H) 7 - 45 Units/L [facility] AST 48(H) 10 - 45 Units/L [facility] Blood Venous blood specimen / Unknown 10/31/2024 5:42 PM CDT 10/31/2024 5:51 PM CDT Yanni Garcia MD LAB BLOOD ORDERABLES Final Result [facility] Department [place] [address] * ECG 12-LEAD (10/31/2024 4:30 PM CDT) [...] in the ED Yanni Garcia MD 10/31/24 [id number] us Yanni Garcia MD ECG ORDERABLES Final Resul t [facility] from Last 3 Months Insurance IDPA [facility] CHOICE PLUS [facility] IDPA IDPA Advance Directives For more information, please contact: [phone] * Full Code (Latest Code Status on File) Date Activated Date Inactivated Comments 08/15/2022 3:10 PM 08/18/2022 6:09 PM Care Teams Lawn Caretaker Relationship Specialty Start Date End Date Lucas Carter DO PCP - General Internal Medicine 08/15/22
--- OUTSIDE RECORDS SUMMARY | 2024-12-28 00:23 | XMS_ITS | Clinical Summary ---
Author Organization [facility] Address [address] [place] [address] Phone Care Team Providers Care Customer Service Consultant Name Role Phone Unavailable Primary Care Provider Unavailabl e Allergies Active Allergy Reactions Criticality Noted Date Comments Hydralazine Vomiting 11/13/2024 Ketorolac Tromethamine Swelling,Vomiting ,Ot her (see Comments) 11/13/2024 Headache, tongue swells Tramadol Swelling,Vomiting 11/13/2024 Swelling of tongue, vomitung Medications No known medications Encounters Date Type Department Care Team Description 11/13/2024 Travel 11/13/2024 Telephone [facility] [address] [place] [address] Carlyle Calderon MD 11/12/2024 Telephone [facility] [address] [place] [address] Carlyle Calderon MD from Last [...] Visit [facility] [address] [place] [address] Damian Diamond MD [address] [address] Health Maintenance Due Date Last Done Comments [...]
--- OUTSIDE RECORDS SUMMARY | 2024-12-28 00:23 | XMS_ITS | CONTINUITY OF CARE DOCUMENT ---
Author Name [email or web address] Address Unknown Organization [facility] Address [address] [place] [address] Phone [phone] Care Team Providers Care Technician Trainee Name Role Phone William CURIEL, Herlinda Unavailable SHAWNEE CURIEL, NABIL Schmidt Unavailable INSURANCE PROVIDERS Payer name Policy type / Coverage type Bj red republican [place] [employer] Medicaid [id number] [facility] [id number]
--- OUTSIDE RECORDS SUMMARY | 2024-12-28 00:23 | XMS_ITS | Clinical Summary ---
Author Organization [facility] [employer] Address [address] [place] [address] Care Team Providers Care Patient Service Coordinator Name Role Phone Damian Sadlre MD Primary Care Provider [phone] Source Comments [facility] [employer],non-owned Affiliates and Associated Physician Practices is amultiple site organization consisting of ambulatory clinics and hospital sitesin [place], [place], [place] and [place]. This disclosure is being madepursuant to the Care Everywhere program and may not contain all information available regarding this patient. Last updated 18.[facility] [employer] Allergies Active Allergy Reactions Criticality Noted Date [...] on file Legal Sex Female 11:41 AM CHEMICAL CHECKER Gender Identity Not on file Sexual Orientation [...] Resulting Agency Comment Lab Testing performed at: [facility] [address] [phone] us Nancy Cotto MD LAB - CHEMISTRY ORDERABLES Final Result [facility] INSURANCE BILL [address] [place] [address] * (ABNORMAL) COMPREHENSIVE METABOLIC PANEL (02/03/2024 1:03 AM [facility]) BUN 9 7 - 26 mg/dL 02/03/2024 1:45 AM [facility] Creatinine 0.64 0.56 - 0.96 mg/dL 02/03/2024 1:45 AM [facility] Sodium 139 136 - 145 mmol/L 02/03/2024 1:45 AM [facility] Potassium 3.4(L) 3.5 - 4.5 mmol/L 02/03/2024 1:45 AM [facility] Chloride 107 98 - 107 mmol/L 02/03/2024 1:45 AM [facility] CO2 21(L) 22 - 29 mmol/L 02/03/2024 1:45 AM [facility] Glucose 78 70 - 115 mg/dL 02/03/2024 1:45 AM [facility] Calcium 9.9 8.4 - 10.2 mg/dL 02/03/2024 1:45 AM [facility] Protein Total 7.7 6.0 - 8.3 g/dL 02/03/2024 1:45 AM [facility] Albumin 4.4 3.4 - 5.0 g/dL 02/03/2024 1:45 AM [facility] Bilirubin Total 0.4 0.2 - 1.2 mg/dL 02/03/2024 1:45 AM [facility] Alkaline Phosphatase 81 40 - 150 U/L 02/03/2024 1:45 AM [facility] ALT 58(H) 5 - 55 U/L 02/03/2024 1:45 AM [facility] AST 33 5 - 34 U/L 02/03/2024 1:45 AM [facility] Anion Gap 11 6 - 16 02/03/2024 1:45 AM [facility] BUN/Creatinine Ratio 14 7 - 23 02/03/2024 1:45 AM [facility] Osmolality Calculated 286 275 - 295 mOsm/kg 02/03/2024 1:45 AM [facility] Albumin/Globulin Ratio 1.3 1.1 - 2.3 02/03/2024 1:45 AM [facility] eGFR by CKD-EPI >90 >=90 mL/min/1.7 3 m2 02/03/2024 1:45 AM [facility] Blood BLOOD SPECIMEN / Unknown Venipuncture / Unknown 02/03/2024 1:03 AM CDT 02/03/2024 1:17 AM CDT Kaylee Reyes MD LAB - CHEMISTRY ORDERABLES Fi nal Result [facility] [address] [place] [address], [facility] [phone] from Last 3 Months or Most Recently Relevant to Health Maintenance Insurance [phone] (Work) [address] [place] [id number] MEDICAID [place] SELF PAY NO INSURANCE Member Subscriber Plan / Payer (Ef fective for All Dates) Name:Tita Luke Member ID:Not on file Relation to Subscriber:Not on file Name:TITA LUKE Subscriber ID:Not on file (Home) Address: [address] [place] [phone] Payer ID:Not on file Group ID:Not on file Type:Self Pay Address: [facility] Care Teams Patient Service Coordinator Relationship Specialty Start Date End Date Damian Sadler MD PCP - General Internal Medicine 07/04/16
--- OUTSIDE RECORDS SUMMARY | 2024-12-28 00:23 | XMS_ITS | Clinical Summary ---
Author Organization [facility] al Address [address] [place] [address] Care Team Providers Care Measurement Technician Name Role Phone Lucas Carter DO Primary Care Provider [phone] Allergies Active Allergy Reactions Criticality Noted Date Comments Hydralazine Headache,Vomiting Low 01/21/2024 Ketorolac Hives,Itching Medium 10/17/2017 Tramadol Hives,Urticaria Medium 08/27/2016 Medications omeprazole (PriLOSEC) 20 mg capsuleIndications :Treatment of Non-Bleeding Gastric Disorder Take 1 capsule (20 mg total) by mouth coal hiker before breakfast Active MULTIVIT-MINERALS/ FERROUS FUM (MULTI VITAMIN ORAL)Indications:h ealth Take 1 tablet by mouth coal hiker before breakfast Active ondansetron ODT (ZOFRAN-ODT) 4 [...] 1 tablet (25 mg total) by mouth coal hiker before breakfast Active nebivoloL (BYSTOLIC) 10 mg [...] CDT - 10/31/2024 10:51 PM CDT Emergency [facility] Emergency Department [address] [place] [address] Yanni Garcia MD Flank pain (Primary Dx) [...] [place] Maternal Grandfather Beka Sr. Maternal Grandmother [place] Mother Lisae Paternal Grandfather Dusty Sister Sarai [...] file Legal Sex Female 9:06 PM DIRECTOR CLINICAL PHARMACOLOGY Gender Identity Female 10/01/2023 8:44 AM DIRECTOR CLINICAL PHARMACOLOGY Sexual Orientation Straight 10/01/2023 8: 44 AM DIRECTOR CLINICAL PHARMACOLOGY Obstetrics History Para Term AB IAB SAB [...] (5' 3 ) 06/29/2024 7:50 AM DIRECTOR CLINICAL PHARMACOLOGY Body Mass Index 32.57 06/29/2024 7:50 AM DIRECTOR CLINICAL PHARMACOLOGY Plan of Treatment Health Maintenance Due Date [...] home safety. Medical Devices Implanted Type Area Mat Tester Device Identifier Shelf Expiration Date Model [...] in the left kidney. Dictated by: Paul cShneider MD The radiology attending physician has personally reviewed this study, and had reviewed and/or edited this written report and agrees with it. Electronically signed by: Mike Olmstead MD, PHD Minda Gurrola MD IMG CT PROCEDURES Final Result * POCT hCG, urine (10/31/2024 6:32 PM CDT) Pathologist [facility] HCG, ur, POC Negative Negative Lot Number [id number] QC Backgroud Clear Acceptable QC Control Line Acceptable Urine 10/31/2024 6:32 PM CDT Result [facility] Yanni Garcia MD POINT OF CARE TEST ORDERABL ES Final Result * eGFR (10/31/2024 5:42 PM CDT) Pathologist [facility] eGFR >90 >=60 mL/min/1. 73 m2 Comment: [...] LAB BLOOD ORDERABLES Final R esult [facility] Department [place] [address] * (ABNORMAL) Differential, auto (10/31/2024 5:42 PM CDT) Neutrophil abs 5.6 1.5 - 6.5 K/cumm Imm gran abs 0.0 0.0 - 0.1 K/cumm [facility] Lymphocyte abs 2.3 0.8 - 3.3 K/cumm [facility] Monocyte abs 0.9(H) 0.2 - 0.8 K/cumm [facility] Eosinophil abs 0.1 0.0 - 0.5 K/cumm [facility] Basophil abs 0.1 0.0 - 0.1 K/cumm [facility] Neutrophil pct 62.4 % [facility] Comment: Interpretive Data Percent cell count reference ranges are not reported, since discordance with absolute values may lead to misinterpretation of CBC data. Current Interpretive Data was last revised on 2017. Imm gran pct 0.3 % [facility] Comment: Interpretive Data Percent cell count reference ranges are not reported, since discordance with absolute values may lead to misinterpretation of CBC data. Current Interpretive Data was last revised on 2017. Lymphocyte pct 25.2 % [facility] Comment: Interpretive Data Percent cell count reference ranges are not reported, since discordance with absolute values may lead to misinterpretation of CBC data. Current Interpretive Data was last revised on 2017. Monocyte pct 10.0 % [facility] Comment: Interpretive Data Percent cell count reference ranges are not reported, since discordance with absolute values may lead to misinterpretation of CBC data. Current Interpretive Data was last revised on 2017. Eosinophil pct 1.5 % [facility] Comment: Interpretive Data Percent cell count reference ranges are not reported, since discordance with absolute values may lead to misinterpretation of CBC data. Current Interpretive Data was last revised on 2017. Basophil pct 0.6 % [facility] Comment: Interpretive Data Percent cell count reference ranges are not reported, since discordance with absolute values may lead to misinterpretation of CBC data. Current Interpretive Data was last revised on 2017. Blood 10/31/2024 5:42 PM CDT 10/31/2024 5:51 PM CDT Severo Mckeon MD LAB BLOOD ORDERABLES Final R esult Performing Organization Address City/[facility]/ZIP Co de Phone Number [facility] Department [place] [address] * Urinalysis reflex to microscopic and culture Urine (10/31/2024 5:42 PM CDT) Color, ur Straw Yellow Clarity, ur Clear Clear [facility] Specific gravity, ur 1.011 1.003 - 1.030 [facility] pH, urine 5.5 [facility] Comment: Interpretive Data U rine pH is affected by diet, medications, systemic acid-base disturbances, and renal tubular function. pH may affect urinary stone formation. For example, urine pH below 6.0 may help reduce the tendency for calcium phosphate stones and pH greater than 6.0 may reduce the tendency for uric acid stone formation. Source: [facility] Current Interpretive Data was last revised on 2017 Protein, ur ql Negative Negative [facility] Glucose, ur ql Negative Negative [facility] Ketones, ur Negative Negative [facility] Bilirubin, ur Negative Negative [facility] Blood, ur Negative Negative [facility] Urobilinogen, ur <2.0 <2.0 mg/dL [facility] Nitrite, ur Negative Negative [facility] Leukocyte esterase, ur Negative Negative [facility] UA reflex comment Reflex conditions for microscopic UA and culture not met. [facility] Urine 10/31/2024 5:42 PM CDT 10/31/2024 5:49 PM CDT Minda Gurrola MD LAB MICROBIOLOGY - GENER AL ORDERABLES Final Result [facility] Department [place] [address] * (ABNORMAL) CBC with auto differential (10/31/2024 5:42 PM CDT) [facility] WBC 8.9 3.8 - 9.9 K/cumm Hgb 16.1(H) 11.9 - 15.5 g/dL [facility] Hct 45.8(H) 35.6 - 45.5 % [facility] Plt 319 150 - 400 K/cumm [facility] MPV 9.2 9.1 - 12.3 fL [facility] RBC 5.35(H) 3.90 - 5.20 M/cumm [facility] MCV 85.6 81.3 - 96.4 fL [facility] MCH 30.1 27.1 - 33.3 pg [facility] MCHC 35.2 32.3 - 35.7 g/dL [facility] RDW CV 12.5 11.1 - 14.9 % [facility] RDW SD 38.8 35.7 - 48.1 fL [facility] NRBC abs 0.00 0.00 - 0.01 K/cumm [facility] Blood Venous blood specimen / Unknown 10/31/2024 5:42 PM CDT 10/31/2024 5:51 PM CDT us Yanni Garcia MD LAB BLOOD ORDERABLES Final Result Performing Organization Address City/[facility]/ZIP Co de Phone Number [facility] Department [place] [employer] [address] * Lipase (10/31/2024 5:42 PM CDT) [facility] Lipase 41 10 - 99 Units/L Blood Venous blood specimen / Unknown 10/31/2024 5:42 PM CDT 10/31/2024 5:51 PM CDT Yanni Garcia MD LAB BLOOD ORDERABLES Final Result [facility] Department [place] [employer] [address] * (ABNORMAL) Comprehensive metabolic panel (10/31/2024 5:42 PM CDT) Sodium 142 135 - 145 mmol/L Potassium, pl 4.2 3.3 - 4.9 mmol/L [facility] Chloride 105 97 - 110 mmol/L [facility] CO2 24 22 - 32 mmol/L [facility] Anion gap 13 2 - 15 mmol/L [facility] BUN 9 6 - 25 mg/dL [facility] Creatinine 0.65 0.60 - 1.10 mg/dL [facility] Glucose 84 70 - 199 mg/dL [facility] Comment: Interpretive Data Fasting glucose >/= 126 [...] 10.3 8.5 - 10.3 mg/dL [facility] Bilirubin, total 0.3 0.1 - 1.2 mg/dL [facility] Protein, pl 8.3 6.5 - 8.5 g/dL [facility] Albumin 4.7 3.5 - 5.0 g/dL [facility] Alk phos 105 40 - 130 Units/L [facility] ALT 68(H) 7 - 45 Units/L [facility] AST 48(H) 10 - 45 Units/L [facility] Blood Venous blood specimen / Unknown 10/31/2024 5:42 PM CDT 10/31/2024 5:51 PM CDT us Yanni Garcia MD LAB BLOOD ORDERABLES Final Result [facility] Department [place] [address] * ECG 12-LEAD (10/31/2024 4:30 PM CDT) Narrative [facility] - 10/31/2024 4:30 PM CDT Yanni Garcia MD 10/31/2024 4:32 PM ECG 12 lead Date/Time: 10/31/2024 4:30 PM Performed by: Yanni aGrcia MD Authorized by: Severo Mckeon MD Rate: [...] in the ED Yanni Garcia MD 10/31/24 [id number] us Yanni Garcia MD ECG ORDERABLES Final Resul t [facility] from Last 3 Months Insurance [employer] [facility] [place] [address] [place] [address] IDPA IDPA Advance Directives For more information, please contact: [phone] * Full Code (Latest Code Status on File) Date Activated Date Inactivated Comments 08/15/2022 3:10 PM 08/18/2022 6:09 PM Care Teams Measurement Technician Relationship Specialty Start Date End Date Lucas Carter DO PCP - General Internal Medicine 08/15/22
[2024-12-28] MEDS: ONDANSETRON HCL ODT 4 MG TABLET PO (00:47)
[2024-12-28 01:03] VITALS: BP 182/110; PULSE 87; RESP 18; O2SAT 98
--- NOTE | 2024-12-28 04:24 | ED_ITS ---
HPI - Abdominal Pain General Chief Complaint: Abdominal Pain Stated Complaint: kidney stones, chest pain, htn Time Seen by Provider: 12/28/24 00:14 History of Present Illness HPI narrative: Patient with frequent renal colic presents here with some; L flank pain, had recent CT a week or so ago, same pain. States that when this happened she has some associated chest discomfort but mostly it is actually just flank pain and nausea Related Data Home Medications Medication Instructions Recorded Confirmed Last Taken Type multivitamin 1 tablet PO DAILY 04/04/22 12/23/24 11/13/24 09:00 History nebivolol 10 mg tablet (Bystolic) 10 mg PO BID 10/21/24 12/23/24 11/14/24 02:20 History 10 mg omeprazole 20 mg capsule,delayed 20 mg PO DAILY 11/23/24 12/23/24 Unknown History release tamsulosin 0.4 mg capsule 0.4 mg PO DAILY PRN urinary 11/26/24 12/23/24 12/04/24 History retention Allergies Allergy/AdvReac Type Severity Reaction Status Date / Time ketorolac (From Toradol) Allergy Headache,Rash, Verified 12/27/24 22:26 Swollen tongue tramadol AdvReac Mild VOMITING/HE Verified 12/27/24 22:26 ADACHE hydralazine AdvReac Headache Verified 12/27/24 22:26 Review of Systems 2 Review of Systems: All systems reviewed & are unremarkable except as noted in HPI and below PMFSH Past Medical History Medical History Left ureteral stone Hypertension Gastroesophageal reflux disease Sleep paralysis, recurrent isolated Smoker Obesity Depression Multiple kidney stones Seasonal allergies Surgical History Surgical History H/O ureteroscopy 10/21/24 on the right due to proximal ureteral stone; Dr Gonzalez History of laparoscopic cholecystectomy on 04/25/23 PDC History of tubal ligation History of endometrial ablation (2009) History of hysterectomy (2015) History of open reduction and internal fixation (ORIF) procedure (2012) Left elbow. History of section 2000, 2001, 2009 Status post cystoscopy with ureteral stent placement Family History Family History Mother Diabetes mellitus Depression Alcoholism Father Hypertension Diabetes mellitus Sibling Congenital heart disease Son Asthma Grandparent Diabetes mellitus Cerebrovascular accident Social History Social History Social History: Surrogate medical decision maker: Bang Luke, spouse. Code status: Full code. Smoking packs per day: 0.5 Smoking cigarettes per day: 10.0 Years smoked: 32 Smoking pack-years: 16.00 Smoking status: Current every day smoker Tobacco type: cigarettes Second hand tobacco smoke exposure: Yes Alcohol intake: never Alcohol use details: Social alcohol use in moderation. Substance use: never Substance use type: does not use Do You Feel Safe in your Home?: Yes Lack of Transportation: No Lack of Food: Never True Current Housing: I Have Housing Concerned About Future Housing: No Difficulty Paying Gas/Electric Bills: No Difficulty Paying for Meds: No Currently Unemployed: YES Education: High School Diploma/GED Difficulty w/ Childcare or Family Care: No Living arrangements: with family Spiritual care concerns: No Exam 2 Narrative: EXAMINATION OF ORGAN SYSTEMS/BODY AREAS: Constitutional: Vital signs per nursing GENERAL:[No acute distress, non-toxic appearing.] HEAD: Normal with no signs of head trauma. EYES: EOMI, conjunctiva normal ENT: Hearing grossly intact LUNGS: Nonlabored breathing. HEART: [Regular rate and rhythm] ABD: [Soft], [nontender to palpation], no CVA tenderness EXT: Normal range of motion SKIN: [No rashes or lesions.] NEURO: [Alert and oriented x 3. No gross focal sensory or strength deficits.] PSYCH: Normal affect Course Vital Signs Vital signs: Vital Signs Temperature 97.7 F 12/27/24 22:21 Pulse Rate 91 12/27/24 22:21 Respiratory Rate 20 12/27/24 22:21 Blood Pressure 160/118 H 12/27/24 22:21 Pulse Oximetry 100 12/27/24 22:21 Oxygen Delivery Room Air 12/27/24 22:21 Temperature 97.7 F 12/27/24 22:21 Pulse Rate 87 12/28/24 01:03 Respiratory Rate 18 12/28/24 01:03 Blood Pressure 182/110 H 12/28/24 01:03 Pulse Oximetry 98 12/28/24 01:03 Oxygen Delivery Room Air 12/27/24 22:21 MDM - Abdominal Pain MDM Narrative Medical decision making narrative: ED COURSE AND MEDICAL DECISION MAKINF presenting with flank pain resulting in some chest pain. EKG done in triage negative for acute ischemic changes. Cardiac workup is initiated. EKG: Performed in triage and interpreted by me. Normal sinus rhythm. Rate [81]. Normal axis. ND normal. QRS duration normal. QTc normal. No pathologic Q waves. No ST segment elevation or depression to suggest acute ischemia. No RV strain pattern. CXR on my independent interpretation without cardiomegaly, consolidations or pneumothorax HEART score is 1 with no acute ischemic changes on EKG and negative troponin making ACS unlikely. Wells low risk with negative PERC making PE unlikely. Presentation not consistent with dissection or aneurysm without radiation of pain or pulse deficits. CXR negative for mediastinal widening. No abdominal pain or signs of sepsis that would be concerning for esophageal perforation or mediastinitis. No cardiomegaly or JVD to suggest pericardial effusion/tamponade. Patient would just like to have some pain medicine for her renal colic and nausea medicine. With shared decision-making, will defer repeat CT since she has had 1 very recently and no new symptoms On repeat evaluation just prior to discharge, the patient is no acute distress. I had a long discussion with the patient and with shared decision making, she is comfortable with outpatient management. She was given clear return instructions by myself in person as well as on discharge paperwork. Procedures: Pulse oximetry interpretation - not hypoxic. EKG interpretation. Review of medical records. Lab Data 12/27/24 22:27 12/27/24 22:27 Labs: Lab Results 12/27/24 12/27/24 12/27/24 Range/Units 22:27 22:29 22:35 WBC 6.9 (4.5-10.0) K/mm3 RBC 4.50 (4.2-5.4) M/mm3 Hgb 13.9 (12.0-15.0) g/dL Hct 40.0 (37.0-47.0) % MCV 88.9 (80-100) fl MCH 30.9 (26-34) pg MCHC 34.8 (32-36) g/dl RDW 13.2 (11.5-14.5) % Plt Count 239 (150-375) k/mm3 MPV 9.1 (7.4-10.4) fl Immature Gran % (Auto) 0.3 (0-0.5) % Neut % (Auto) 50.4 (45.5-73.1) % Lymph % (Auto) 40.0 (18.3-44.2) % [place] % (Auto) 6.6 (2.6-8.5) % Eos % (Auto) 2.3 (0-4.4) % Baso % (Auto) 0.4 (0.2-1.2) % Lymph # (Auto) 2.75 (0.9-3.2) K/mm3 [place] # (Auto) 0.5 (0.1-0.6) K/mm3 Eos # (Auto) 0.2 (0-0.3) K/mm3 Baso # (Auto) 0.0 (0.0-0.1) K/mm3 Abs Immat Gran (auto) 0.02 (0.00-0.031) K/mm3 Absolute Neuts (auto) 3.5 (1.3-6.7) K/mm3 Absolute Nucleated RBC 0.000 (0.0-0.012) K/mm3 Nucleated RBC % 0.0 (0.0-0.2) % PT 14.4 (11.1-14.7) Seconds INR 1.1 APTT 27.2 (22.3-36.8) Seconds Sodium 140 (137-145) mmol/L Potassium 3.6 (3.4-5.0) mmol/L Chloride 110 H (98-107) mmol/L Carbon Dioxide 20 L (22-30) mmol/L Anion Gap 10 (4-12) mmol/L BUN 15 (7-17) mg/dL Creatinine 0.62 L (0.7-1.0) mg/dL Estim Creat Clear Calc 100 ml/min Estimated GFR > 60 (59 - ) Glucose 141 H (65-110) mg/dL Calcium 9.0 (8.4-10.2) mg/dL Total Bilirubin 0.4 (0.2-1.3) mg/dL AST 59 H (14-36) U/L ALT 57 H (6-35) U/L Alkaline Phosphatase 87 (38-126) U/L Troponin I < 0.012 (0.000-0.034) ng/mL Total Protein 7.0 (6.3-8.2) g/dL Albumin 4.3 (3.5-5.1) g/dL Lipase 80 (23-300) U/L Urine Color Yellow (Yellow) Urine Appearance Clear (Clear) Urine pH 5.5 (5.0-9.0) Ur Specific [place] 1.032 (1.001-1.035) Urine Protein Trace (Negative) mg/dL Urine Glucose (UA) Negative (Negative) mg/dL Urine Ketones Negative (Negative) mg/dL Ur Blood (Man) 1+ H (Negative) Urine Nitrate Negative (Negative) Urine Bilirubin Negative (Negative) Urine Urobilinogen 1.0 (<2.0) mg/dL Leukocyte Esterase Rfl Negative (Negative) ALEKSANDRA/UL Urine RBC 6-10 H (0-2) /hpf Urine WBC 6-10 H (0-3) /hpf Ur Squamous Epith Cells Occasional (Few) /hpf Urine Bacteria Rare /hpf Urine Casts 0-2 POC Urine HCG, Qual Negative (Negative) Discharge Plan Discharge Clinical Impression: Renal colic Patient Disposition: Home Condition: Stable Instructions: Kidney Stones (ED) Additional Instructions: Please follow-up with urologist. If your pain returns or worsens or is not better despite medications, you can always return to the emergency room. Patient Language: Romanian Prescriptions: New ondansetron 4 mg tablet,disintegrating 4 mg PO Q8H PRN (Reason: nausea and vomiting) Qty: 14 0RF oxycodone 5 mg tablet 5 mg PO Q8H PRN (Reason: pain) Qty: 5 0RF No Action multivitamin Tablet 1 tablet PO DAILY ondansetron 4 mg tablet,disintegrating 4 mg PO Q8H Qty: 14 0RF nebivolol [Bystolic] 10 mg tablet 10 mg PO BID acetaminophen 500 mg capsule 1,000 mg PO Q6H PRN (Reason: pain) Qty: 30 0RF tamsulosin 0.4 mg capsule 0.4 mg PO DAILY PRN (Reason: urinary retention) Rx Instructions: kidney stones docusate sodium 100 mg Capsule 100 mg PO DAILY Qty: 30 0RF omeprazole 20 mg capsule,delayed release(DR/EC) 20 mg PO DAILY amlodipine 10 mg tablet See Rx Instructions .ROUTE .COMPLEX Qty: 90 0RF Dose Instruction: TAKE 1 TABLET BY MOUTH DAILY Rx Instructions: TAKE 1 TABLET BY MOUTH DAILY losartan 50 mg tablet See Rx Instructions .ROUTE .COMPLEX Qty: 180 0RF Dose Instruction: TAKE 1 TABLET BY MOUTH TWICE DAILY Rx Instructions: TAKE 1 TABLET BY MOUTH TWICE DAILY hydrochlorothiazide 25 mg tablet See Rx Instructions .ROUTE .COMPLEX Qty: 90 0RF Dose Instruction: TAKE 1 TABLET BY MOUTH EVERY MORNING Rx Instructions: TAKE 1 TABLET BY MOUTH EVERY MORNING Follow-up/Referrals: Lucas Carter, [Primary Care Provider] -
== END 2024-12-28 01:05 | disposition home or self-care (01) ==
PROVIDERS: Emergency Provider Emergency Medicine; PCP Internal Medicine
DX: N23 Unspecified renal colic (principal); I10 Essential (primary) hypertension; K21.9 Gastro-esophageal reflux disease without esophagitis; F17.210 Nicotine dependence, cigarettes, uncomplicated
CPT/HCPCS: 36415; 71046; 80053; 81001; 81025; 83690; 84484; 85025; 85610; 85730; 87086; 93005; 99284; A9270

== ENCOUNTER 2024-12-29 00:52 | Day surgery (SDC) | payer OTHER, SELFPAY ==
[2024-12-23 13:09] VITALS: BMI 33.5
[2024-12-29] VITALS (9 sets, daily range): BP systolic 135–186; BP diastolic 72–133; PULSE 74–99; RESP 13–25; TEMP 36.1; O2SAT 95–100; BMI 33.7
--- OUTSIDE RECORDS SUMMARY | 2024-12-29 00:55 | XMS_ITS | Clinical Summary ---
Author Organization [facility] al Address [address] [place] [address] Care Team Providers Care Narcotics Detective Name Role Phone Lucas Carter DO Primary Care Provider [phone] Allergies Active Allergy Reactions Criticality Noted Date Comments Hydralazine Headache,Vomiting Low 01/21/2024 Ketorolac Hives,Itching Medium 10/17/2017 Tramadol Hives,Urticaria Medium 08/27/2016 Medications omeprazole (PriLOSEC) 20 mg capsuleIndications :Treatment of Non-Bleeding Gastric Disorder Take 1 capsule (20 mg total) by mouth energy trader before breakfast Active MULTIVIT-MINERALS/ FERROUS FUM (MULTI VITAMIN ORAL)Indications:h ealth Take 1 tablet by mouth energy trader before breakfast Active ondansetron ODT (ZOFRAN-ODT) 4 [...] tablet (25 mg total) by mouth energy trader before breakfast Active nebivoloL (BYSTOLIC) 10 mg [...] CDT - 10/31/2024 10:51 PM CDT Emergency [facility] Emergency Department [address] [place] [address] Yanni Garcia MD Flank pain (Primary Dx) [...] [place] Maternal Grandfather Beka Sr. 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 Medical Devices Implanted Type Area Electron Beam Machine Welder Setter Device Identifier Shelf Expiration Date Model / [...] hCG, urine (10/31/2024 6:32 PM CDT) Pathologist [facility] HCG, ur, POC Negative Negative Lot Number [id number] QC Backgroud Clear Acceptable QC Control Line Acceptable Urine 10/31/2024 6:32 PM CDT Result [facility] Yanni Garcia MD POINT OF CARE TEST ORDERABL ES Final Result * eGFR (10/31/2024 5:42 PM CDT) Pathologist [facility] eGFR >90 >=60 mL/min/1. 73 [...] LAB BLOOD ORDERABLES Final R esult [facility] Department [place] [address] * (ABNORMAL) Differential, auto (10/31/2024 5:42 PM CDT) Neutrophil abs 5.6 1.5 - 6.5 K/cumm Imm gran abs 0.0 0.0 - 0.1 K/cumm [facility] Lymphocyte abs 2.3 0.8 - 3.3 K/cumm [facility] Monocyte abs 0.9(H) 0.2 - 0.8 K/cumm [facility] Eosinophil abs 0.1 0.0 - 0.5 K/cumm [facility] Basophil abs 0.1 0.0 - 0.1 K/cumm [facility] Neutrophil pct 62.4 % [facility] Comment: Interpretive Data Percent cell count reference ranges are not reported, since discordance with absolute values may lead to misinterpretation of CBC data. Current Interpretive Data was last revised on 2017. Imm gran pct 0.3 % [facility] Comment: Interpretive Data Percent cell count reference ranges are not reported, since discordance with absolute values may lead to misinterpretation of CBC data. Current Interpretive Data was last revised on 2017. Lymphocyte pct 25.2 % [facility] Comment: Interpretive Data Percent cell count reference ranges are not reported, since discordance with absolute values may lead to misinterpretation of CBC data. Current Interpretive Data was last revised on 2017. Monocyte pct 10.0 % [facility] Comment: Interpretive Data Percent cell count reference ranges are not reported, since discordance with absolute values may lead to misinterpretation of CBC data. Current Interpretive Data was last revised on 2017. Eosinophil pct 1.5 % [facility] Comment: Interpretive Data Percent cell count reference ranges are not reported, since discordance with absolute values may lead to misinterpretation of CBC data. Current Interpretive Data was last revised on 2017. Basophil pct 0.6 % [facility] Comment: Interpretive Data Percent cell count reference ranges are not reported, since discordance with absolute values may lead to misinterpretation of CBC data. Current Interpretive Data was last revised on 2017. Blood 10/31/2024 5:42 PM CDT 10/31/2024 5:51 PM CDT Severo Mckeon MD LAB BLOOD ORDERABLES Final R esult Performing Organization Address City/[facility]/ZIP Co de Phone Number [facility] Department [place] [address] * Urinalysis reflex to microscopic and culture Urine (10/31/2024 5:42 PM CDT) Color, ur Straw Yellow Clarity, ur Clear Clear [facility] Specific gravity, ur 1.011 1.003 - 1.030 [facility] pH, urine 5.5 [facility] Comment: Interpretive Data U rine pH is affected by diet, medications, systemic acid-base disturbances, and renal tubular function. pH may affect urinary stone formation. For example, urine pH below 6.0 may help reduce the tendency for calcium phosphate stones and pH greater than 6.0 may reduce the tendency for uric acid stone formation. Source: [facility] Current Interpretive Data was last revised on 2017 Protein, ur ql Negative Negative [facility] Glucose, ur ql Negative Negative [facility] Ketones, ur Negative Negative [facility] Bilirubin, ur Negative Negative [facility] Blood, ur Negative Negative [facility] Urobilinogen, ur <2.0 <2.0 mg/dL [facility] Nitrite, ur Negative Negative [facility] Leukocyte esterase, ur Negative Negative [facility] UA reflex comment Reflex conditions for microscopic UA and culture not met. [facility] Urine 10/31/2024 5:42 PM CDT 10/31/2024 5:49 PM CDT Minda Gurrola MD LAB MICROBIOLOGY - GENER AL ORDERABLES Final Result [facility] Department [place] [address] * (ABNORMAL) CBC with auto differential (10/31/2024 5:42 PM CDT) [facility] WBC 8.9 3.8 - 9.9 K/cumm Hgb 16.1(H) 11.9 - 15.5 g/dL [facility] Hct 45.8(H) 35.6 - 45.5 % [facility] Plt 319 150 - 400 K/cumm [facility] MPV 9.2 9.1 - 12.3 fL [facility] RBC 5.35(H) 3.90 - 5.20 M/cumm [facility] MCV 85.6 81.3 - 96.4 fL [facility] MCH 30.1 27.1 - 33.3 pg [facility] MCHC 35.2 32.3 - 35.7 g/dL [facility] RDW CV 12.5 11.1 - 14.9 % [facility] RDW SD 38.8 35.7 - 48.1 fL [facility] NRBC abs 0.00 0.00 - 0.01 K/cumm [facility] Blood Venous blood specimen / Unknown 10/31/2024 5:42 PM CDT 10/31/2024 5:51 PM CDT us Yanni Garcia MD LAB BLOOD ORDERABLES Final Result Performing Organization Address City/[facility]/ZIP Co de Phone Number [facility] Department [place] [address] * Lipase (10/31/2024 5:42 PM CDT) [facility] Lipase 41 10 - 99 Units/L Blood Venous blood specimen / Unknown 10/31/2024 5:42 PM CDT 10/31/2024 5:51 PM CDT Yanni Garcia MD LAB BLOOD ORDERABLES Final Result [facility] [place] [address] * (ABNORMAL) Comprehensive metabolic panel (10/31/2024 5:42 PM CDT) Sodium 142 135 - 145 mmol/L Potassium, pl 4.2 3.3 - 4.9 mmol/L [facility] Chloride 105 97 - 110 mmol/L [facility] CO2 24 22 - 32 mmol/L [facility] Anion gap 13 2 - 15 mmol/L [facility] BUN 9 6 - 25 mg/dL [facility] Creatinine 0.65 0.60 - 1.10 mg/dL [facility] Glucose 84 70 - 199 mg/dL [facility] Comment: Interpretive Data Fasting glucose >/= 126 [...] 2022. Calcium 10.3 8.5 - 10.3 mg/dL [facility] Bilirubin, total 0.3 0.1 - 1.2 mg/dL [facility] Protein, pl 8.3 6.5 - 8.5 g/dL [facility] Albumin 4.7 3.5 - 5.0 g/dL [facility] Alk phos 105 40 - 130 Units/L [facility] ALT 68(H) 7 - 45 Units/L [facility] AST 48(H) 10 - 45 Units/L [facility] Blood Venous blood specimen / Unknown 10/31/2024 5:42 PM CDT 10/31/2024 5:51 PM CDT us Yanni Garcia MD LAB BLOOD ORDERABLES Final Result [facility] Department [place] [address] * ECG 12-LEAD (10/31/2024 4:30 PM CDT) Narrative [facility] - 10/31/2024 4:30 [...] in the ED Yanni Garcia MD 10/31/24 3679 us Yanni Garcia MD ECG ORDERABLES Final Resul t [facility] from Last 3 Months Insurance [facility] CHO[place] [address] [address] IDPA IDPA Advance Directives For more information, please contact: [phone] * Full Code (Latest Code Status on File) Date Activated Date Inactivated Comments 08/15/2022 3:10 PM 08/18/2022 6:09 PM Care Teams Narcotics Detective Relationship Specialty Start Date End Date Lucas Carter DO PCP - General Internal Medicine 08/15/22
--- OUTSIDE RECORDS SUMMARY | 2024-12-29 00:55 | XMS_ITS | Clinical Summary ---
Author Organization [facility] Address [address] [place] [address] Phone Care Team Providers Care Head Housekeeper Name Role Phone Unavailable Primary Care Provider Unavailabl e Allergies Active Allergy Reactions Criticality Noted Date Comments Hydralazine Vomiting 11/13/2024 Ketorolac Tromethamine Swelling,Vomiting ,Ot her (see Comments) 11/13/2024 Headache, tongue swells Tramadol Swelling,Vomiting 11/13/2024 Swelling of tongue, vomitung Medications No known medications Encounters Date Type Department Care Team Description 11/13/2024 Travel 11/13/2024 Telephone [facility] [address] [place] [address] Carlyle Calderon MD 11/12/2024 Telephone [facility] [address] [place] [address] Carlyle Calderon MD from Last [...] Visit [facility] [address] [place] [address] Damian Diamond MD [address] [address] Health Maintenance Due Date Last Done Comments [...] (Adult) (1 - 1-dose 75+ series) 2054 Human Papillomavirus (HPV) Immunization Aged Out No longer eligible b ased on patient's age to complete this topic Meningococcal Immunization (ACWY) Aged Out No longer eligible b ased on patient's age to complete this topic Rotavirus Immunization Aged Out No lo nger eligible based on patient's age to complete this topic Insurance MEDICAID [place]
--- OUTSIDE RECORDS SUMMARY | 2024-12-29 00:55 | XMS_ITS | Clinical Summary ---
Author Organization [facility] Address [address] [place] [address] Care Team Providers Care President Sales And Marketing Name Role Phone Damian Sadler MD Primary Care Provider [phone] Source Comments [facility],non-owned Affiliates and Associated Physician Practices is amultiple site organization consisting of ambulatory clinics and hospital sitesin [place], [place], [place] and [place]. This disclosure is being madepursuant to the Care Everywhere program and may not contain all information available regarding this patient. 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 Gender Identity Not on file Sexual Orientation [...] Resulting Agency Comment Lab [facility] at: [facility] [address] [phone] us Nancy Cotto MD LAB - CHEMISTRY ORDERABLES Final Result [facility] INSURANCE BILL [address] [place] [address] * (ABNORMAL) COMPREHENSIVE METABOLIC PANEL (02/03/2024 1:03 AM [facility]) BUN 9 7 - 26 [...] 7 - 23 02/03/2024 1:45 AM [facility] Osmolality Calculated 286 275 - 295 mOsm/kg 02/03/2024 1:45 AM [facility] Albumin/Globulin Ratio 1.3 1.1 - 2.3 02/03/2024 1:45 AM T [facility] eGFR by CKD-EPI >90 >=90 mL/min/1.7 3 m2 02/03/2024 1:45 AM T [facility] Blood BLOOD SPECIMEN / Unknown Venipuncture / Unknown 02/03/2024 1:03 AM CDT 02/03/2024 1:17 AM CDT Kaylee Reyes MD LAB - CHEMISTRY ORDERABLES Fi nal Result [facility] [address] [place] [address], [facility] [[email or web address]] [phone] from Last 3 Months or Most Recently Relevant to Health Maintenance Insurance [phone] (Work) [address] [place] [id number] MEDICAID [place] SELF PAY NO INSURANCE Member Subscriber Plan / Payer (Ef fective for All Dates) Name:Tita Luke Member ID:Not on file Relation to Subscriber:Not on file Name:TITA LUKE Subscriber ID:Not on file (Home) Address: [address] [place] [id number] Payer ID:Not on file Group ID:Not on file Type:Self Pay Address: [facility] Care Teams President Sales And Marketing Relationship Specialty Start Date End Date Damian Sadler MD PCP - General Internal Medicine 07/04/16
--- OUTSIDE RECORDS SUMMARY | 2024-12-29 00:55 | XMS_ITS | Referral Summary ---
Author Organization [facility] Address [address] [place] [address] Care Team Providers Care Jailer Chief Name Role Phone Lucas Carter DO Primary Care Provider [phone] Encounters Date Type Department Care Team Description 10/31/2024 4:48 PM CDT - 10/31/2024 10:51 PM CDT Emergency [facility] Emergency Department [address] [place] [address] Yanni Garcia MD Flank pain (Primary Dx) Discharge Disposition: Discharge to home or self care from Last 3 Months Allergies Active Allergy Reactions Criticality Noted Date Comments Hydralazine Headache,Vomiting Low 01/21/2024 Ketorolac Hives,Itching Medium 10/17/2017 Tramadol Hives,Urticaria Medium 08/27/2016 Medications omeprazole (PriLOSEC) 20 mg capsuleIndications :Treatment of Non-Bleeding Gastric Disorder Take 1 capsule (20 mg total) by mouth cisco network engineer before breakfast Active MULTIVIT-MINERALS/ FERROUS FUM (MULTI VITAMIN ORAL)Indications:h ealth Take 1 tablet by mouth cisco network engineer before breakfast Active ondansetron ODT (ZOFRAN-ODT) 4 [...] 1 tablet (25 mg total) by mouth cisco network engineer before breakfast Active nebivoloL (BYSTOLIC) 10 mg [...] on file Legal Sex Female 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 Medical Devices Implanted Type Area Naphtha Washing System Operator Device Identifier Shelf Expiration Date [...] MD LAB BLOOD ORDERABLES Final R esult [facility] One [facility] Department [place] [address] * (ABNORMAL) Differential, auto (10/31/2024 5:42 PM CDT) Neutrophil abs 5.6 1.5 - 6.5 K/cumm Imm gran abs 0.0 0.0 - 0.1 K/cumm [facility] Lymphocyte abs 2.3 0.8 - 3.3 K/cumm [facility] Monocyte abs 0.9(H) 0.2 - 0.8 K/cumm [facility] Eosinophil abs 0.1 0.0 - 0.5 K/cumm [facility] Basophil abs 0.1 0.0 - 0.1 K/cumm [facility] Neutrophil pct 62.4 % [facility] Comment: Interpretive Data Percent cell count reference ranges are not reported, since discordance with absolute values may lead to misinterpretation of CBC data. Current Interpretive Data was last revised on 2017. Imm gran pct 0.3 % [facility] Comment: Interpretive Data Percent cell count reference ranges are not reported, since discordance with absolute values may lead to misinterpretation of CBC data. Current Interpretive Data was last revised on 2017. Lymphocyte pct 25.2 % [facility] Comment: Interpretive Data Percent cell count reference ranges are not reported, since discordance with absolute values may lead to misinterpretation of CBC data. Current Interpretive Data was last revised on 2017. Monocyte pct 10.0 % [facility] Comment: Interpretive Data Percent cell count reference ranges are not reported, since discordance with absolute values may lead to misinterpretation of CBC data. Current Interpretive Data was last revised on 2017. Eosinophil pct 1.5 % [facility] Comment: Interpretive Data Percent cell count reference ranges are not reported, since discordance with absolute values may lead to misinterpretation of CBC data. Current Interpretive Data was last revised on 2017. Basophil pct 0.6 % [facility] Comment: Interpretive Data Percent cell count reference ranges are not reported, since discordance with absolute values may lead to misinterpretation of CBC data. Current Interpretive Data was last revised on 2017. Blood 10/31/2024 5:42 PM CDT 10/31/2024 5:51 PM CDT Severo Mckeon MD LAB BLOOD ORDERABLES Final R esult Performing Organization Address City/State/[facility] Co de Phone Number [facility] One [facility] Department [place] [address] * Urinalysis reflex to microscopic and culture Urine (10/31/2024 5:42 PM CDT) Color, ur Straw Yellow Clarity, ur Clear Clear [facility] Specific gravity, ur 1.011 1.003 - 1.030 [facility] pH, urine 5.5 [facility] Comment: Interpretive Data U rine pH is affected by diet, medications, systemic acid-base disturbances, and renal tubular function. pH may affect urinary stone formation. For example, urine pH below 6.0 may help reduce the tendency for calcium phosphate stones and pH greater than 6.0 may reduce the tendency for uric acid stone formation. Source: [facility] Current Interpretive Data was last revised on 2017 Protein, ur ql Negative Negative [facility] Glucose, ur ql Negative Negative [facility] Ketones, ur Negative Negative [facility] Bilirubin, ur Negative Negative [facility] Blood, ur Negative Negative [facility] Urobilinogen, ur <2.0 <2.0 mg/dL [facility] Nitrite, ur Negative Negative [facility] Leukocyte esterase, ur Negative Negative [facility] UA reflex comment Reflex conditions for microscopic UA and culture not met. [facility] Urine 10/31/2024 5:42 PM CDT 10/31/2024 5:49 PM CDT Minda Gurrola MD LAB MICROBIOLOGY - GENER AL ORDERABLES Final Result Performing Organization Address City/[facility] Co de Phone Number [facility] Department [place] [address] * (ABNORMAL) CBC with auto differential (10/31/2024 5:42 PM CDT) Pathologist [facility] WBC 8.9 3.8 - 9.9 K/cumm Hgb 16.1(H) 11.9 - 15.5 g/dL [facility] Hct 45.8(H) 35.6 - 45.5 % [facility] Plt 319 150 - 400 K/cumm [facility] MPV 9.2 9.1 - 12.3 fL [facility] RBC 5.35(H) 3.90 - 5.20 M/cumm [facility] MCV 85.6 81.3 - 96.4 fL [facility] MCH 30.1 27.1 - 33.3 pg [facility] MCHC 35.2 32.3 - 35.7 g/dL [facility] RDW CV 12.5 11.1 - 14.9 % [facility] RDW SD 38.8 35.7 - 48.1 fL [facility] NRBC abs 0.00 0.00 - 0.01 K/cumm [facility] Blood Venous blood specimen / Unknown 10/31/2024 5:42 PM CDT 10/31/2024 5:51 PM CDT us Yanni Garcia MD LAB BLOOD ORDERABLES Final Result [facility] Department [place] [address] * Lipase (10/31/2024 5:42 PM CDT) Pathologist [facility] Lipase 41 10 - 99 Units/L Blood Venous blood specimen / Unknown 10/31/2024 5:42 PM CDT 10/31/2024 5:51 PM CDT Yanni Garcia MD LAB BLOOD ORDERABLES Final Result [facility] One [facility] [place] [address] * (ABNORMAL) Comprehensive metabolic panel (10/31/2024 5:42 PM CDT) Sodium 142 135 - 145 mmol/L Potassium, pl 4.2 3.3 - 4.9 mmol/L [facility] Chloride 105 97 - 110 mmol/L [facility] CO2 24 22 - 32 mmol/L [facility] Anion gap 13 2 - 15 mmol/L [facility] BUN 9 6 - 25 mg/dL [facility] Creatinine 0.65 0.60 - 1.10 mg/dL [facility] Glucose 84 70 - 199 mg/dL [facility] Comment: Interpretive Data Fasting glucose [...] Calcium 10.3 8.5 - 10.3 mg/dL [facility] Bilirubin, total 0.3 0.1 - 1.2 mg/dL [facility] Protein, pl 8.3 6.5 - 8.5 g/dL [facility] Albumin 4.7 3.5 - 5.0 g/dL [facility] Alk phos 105 40 - 130 Units/L [facility] ALT 68(H) 7 - 45 Units/L [facility] AST 48(H) 10 - 45 Units/L [facility] Blood Venous blood specimen / Unknown 10/31/2024 5:42 PM CDT 10/31/2024 5:51 PM CDT Yanni Garcia MD LAB BLOOD ORDERABLES Final Result [facility] [place] [address] * ECG 12-LEAD (10/31/2024 4:30 PM CDT) [...] in the ED Yanni Garcia MD 10/31/24 1830 us Yanni Garcia MD ECG ORDERABLES Final Resul t [facility] from Last 3 Months Insurance IDPA [facility]US [facility] HMO/PPO Address: [address] [address] [place] [address] [facility] IDPA IDPA Advance Directives For more information, please contact: [phone] * Full Code (Latest Code Status on File) Date Activated Date Inactivated Comments 08/15/2022 3:10 PM 08/18/2022 6:09 PM Care Teams Jailer Chief Relationship Specialty Start Date End Date Lucas Carter DO PCP - General Internal Medicine 08/15/22
--- OUTSIDE RECORDS SUMMARY | 2024-12-29 00:55 | XMS_ITS | CONTINUITY OF CARE DOCUMENT ---
Author Name [email or web address] Address Unknown Organization [facility] Address [address] [place] [address] Phone [phone] Care Team Providers Care Wellness Nurse Name Role Phone William CURIEL, Herlinda Unavailable SHAWNEE CURIEL, NABIL Schmidt Unavailable [phone] INSURANCE PROVIDERS Payer name Policy type / Coverage type Bj red alliance party ID [place] MED[place] Medicaid [id number] [facility] [id number]
[2024-12-29] MEDS: LACTATED RINGERS 1,000 ML 150 ML IV CONT (09:54)
[2024-12-29] MEDS: LABETALOL HCL INJ 100 MG/20 ML VIAL IV PUSH (09:59)
[2024-12-29] MEDS: hydrALAZINE HCL 20 MG/ML VIAL 5 MG IV PUSH (10:26)
--- NOTE | 2024-12-29 10:42 | SUR.PREOP ---
Dr. Qiu notified of hypertension following Labetolol 5mg IVP. Pt 180's/120's, asymptomatic. Received orders to give Hydralazine 5mg IVP x1. Hydralazine listed as an allergy. Patient states adverse reaction to oral form of Hydralazine. States that when she takes PO Hydralazine in addition to her other BP medications, it causes her hypotension and a headache. Notified Dr. Qiu of this and okay to proceed with administration. Patient verbalizes understanding and gives consent to receive the Hydralazine IVP x1. Following hydralazine, BP 146/111. Uyen aware and no further interventions necessary.
--- NOTE | 2024-12-31 20:28 | PM.IMHP ---
H&P: HPI History of Present Illness Date/Time: 12/31/24 20:28 (note corresponding to 12/29/2024) Chief Complaint: screening colonoscopy Narrative: Patient referred for screning colonoscopy, first time. No family history of colon cancer. Review of Systems Review of Systems: All systems reviewed & are unremarkable except as noted in HPI and below PMFSH Past Medical History Medical History Left ureteral stone Hypertension Gastroesophageal reflux disease Sleep paralysis, recurrent isolated Smoker Obesity Depression Multiple kidney stones Seasonal allergies Surgical History Surgical History H/O ureteroscopy 10/21/24 on the right due to proximal ureteral stone; Dr Gonzalez History of laparoscopic cholecystectomy on 04/25/23 PDC History of tubal ligation History of endometrial ablation (2009) History of hysterectomy (2015) History of open reduction and internal fixation (ORIF) procedure (2012) Left elbow. History of section 2000, 2001, 2009 Status post cystoscopy with ureteral stent placement Family History Family History Mother Diabetes mellitus Depression Alcoholism Father Hypertension Diabetes mellitus Sibling Congenital heart disease Son Asthma Grandparent Diabetes mellitus Cerebrovascular accident Social History Social History Social History: Surrogate medical decision maker: Bang Luke, spouse. Code status: Full code. Smoking packs per day: 0.5 Smoking cigarettes per day: 10.0 Years smoked: 32 Smoking pack-years: 16.00 Smoking status: Current every day smoker Tobacco type: cigarettes Second hand tobacco smoke exposure: Yes Alcohol intake: never Alcohol use details: Social alcohol use in moderation. Substance use: never Substance use type: does not use Do You Feel Safe in your Home?: Yes Lack of Transportation: No Lack of Food: Never True Current Housing: I Have Housing Concerned About Future Housing: No Difficulty Paying Gas/Electric Bills: No Difficulty Paying for Meds: No Currently Unemployed: YES Education: High School Diploma/GED Difficulty w/ Childcare or Family Care: No Living arrangements: with family Spiritual care concerns: No Meds Home Medications and Allergies Home Medications Medication Instructions Recorded Confirmed Type multivitamin 1 tablet PO DAILY 08/24/22 05/20/25 History ondansetron 4 mg disintegrating 4 mg PO Q8H #14 tabs 10/12/24 12/23/24 Rx tablet nebivolol 10 mg tablet (Bystolic) 10 mg PO BID 10/21/24 12/29/24 History acetaminophen 500 mg capsule 1,000 mg (2 x 500 mg) PO Q6H PRN 10/25/24 12/23/24 Rx pain #30 caps amlodipine 10 mg tablet See Rx Instructions .Route 11/23/24 12/29/24 Rx .COMPLEX #90 tabs hydrochlorothiazide 25 mg tablet See Rx Instructions .Route 11/23/24 12/29/24 Rx .COMPLEX #90 tabs losartan 50 mg tablet See Rx Instructions .Route 11/23/24 12/29/24 Rx .COMPLEX #180 tabs omeprazole 20 mg capsule,delayed 20 mg PO DAILY 11/23/24 12/29/24 History release tamsulosin 0.4 mg capsule 0.4 mg PO DAILY PRN urinary 11/26/24 12/29/24 History retention docusate sodium 100 mg capsule 100 mg PO DAILY #30 caps 12/02/24 12/29/24 Rx ondansetron 4 mg disintegrating 4 mg PO Q8H PRN nausea and 12/28/24 Rx tablet vomiting #14 tabs oxycodone 5 mg tablet 5 mg PO Q8H PRN pain #5 tabs 12/28/24 Rx Allergies Allergy/AdvReac Type Severity Reaction Status Date / Time ketorolac (From Toradol) Allergy Headache,Rash, Verified 12/29/24 09:44 Swollen tongue tramadol AdvReac Mild VOMITING/HE Verified 12/29/24 09:44 ADACHE hydralazine AdvReac Headache Verified 12/29/24 09:44 Exam Const: General: cooperative and healthy appearing Resp: Effort & Inspection: normal respiratory effort and able to speak in complete sentences Auscultation: clear to auscultation bilaterally Cardio: Rate: regular rate Rhythm: regular rhythm GI: Inspection: normal to inspection GI Palp: No No hepatosplenomegaly present Auscultation: normal bowel sounds Rectal Exam: deferred Skin: General skin exam: normal color Psych: Appearance: grossly normal Mental Status: mental status grossly normal Assessment and Plan Assessment and plan (1) Encounter for screening colonoscopy: Code(s): Z12.11 - Encounter for screening for malignant neoplasm of colon Status: Acute Assessment and Plan: Patient deemed a good candidate for screening colonoscopy. Will proceed.
== END 2024-12-29 11:38 | disposition home or self-care (01) ==
PROVIDERS: PCP Internal Medicine; Visit Provider Internal Medicine Gastroenterology
PROC: 0DJD8ZZ Inspection of Lower Intestinal Tract, Via Natural or Artificial Opening Endoscopic (ICD-10-PCS; CPT 45378; principal; 2024-12-29 11:00)
DX: Z12.11 Encounter for screening for malignant neoplasm of colon (principal); K57.30 Diverticulosis of large intestine without perforation or abscess without bleeding; F17.210 Nicotine dependence, cigarettes, uncomplicated
CPT/HCPCS: 45378; J0360; J2003; J2704; J7120

== ENCOUNTER 2025-01-10 12:02 | Emergency (ER) | payer OTHER, SELFPAY ==
--- NOTE | ~2025-01-10 | CT_ITS ---
EXAMINATION: CT abdomen pelvis wo con DATE: 01/10/2025 12:56 INDICATION: Nephrolithiasis presenting with left lower abdominal and flank pain. TECHNIQUE: Computed tomography (CT) of the abdomen and pelvis was performed without intravenous contr ast. Automated exposure control and iterative reconstruction technique were employed. The dose-length product was 205.69 mGy-cm. COMPARISON: 12/11/2024 FINDINGS: Lung bases are clear. Heart size is normal. No pericardial or pleural effusion. Cholecystectomy clips at the gallbladder fossa. Diffuse hepatic steatosis. Spleen, pancreas, bilateral adrenal glands and left kidney are normal. Couple small bilateral renal stones the larger measuring 2 to 3 mm upper pole the right kidney with 1-2 mm stone in the lower pole the left kidney. Unchanged pattern of several p hleboliths in the pelvis. No nephrolithiasis or evident ureteral stones. Bladder is normal. The uteru s and right ovary are not identified and has likely been surgically resected. Left adnexa is unremark able. There are a few diverticula along the sigmoid colon without adjacent from trace stranding to medel ggest diverticular colitis. Small bowel and appendix are normal. No free intraperitoneal gas or fluid . No pathologically enlarged abdominal or pelvic lymphadenopathy. Chronic mild anterior wedging at T1 1 with moderate lower thoracic and mild lumbar spondylosis. IMPRESSION: 1. Bilateral nonobstructing nephrolithiasis. No ureteral stones or hydronephrosis. 2. Prominent diffuse hepatic steatosis. Reviewed, dictated and finalized at location A. IMPRESSION: 1. Bilateral nonobstructing nephrolithiasis. No ureteral stones or hydronephros is. 2. Prominent diffuse hepatic steatosis.
[2025-01-10 12:15] VITALS: BP 175/115; PULSE 103; RESP 16; TEMP 36.2; O2SAT 99
--- NOTE | 2025-01-10 12:38 | ED.GENADULT ---
HPI - General Adult General Chief complaint: Urogenital-Female Stated complaint: Left flank pain-history kidney stone Time Seen by Provider: 01/10/25 12:35 Source: patient Mode of arrival: ambulatory History of Present Illness HPI narrative: 44 years old white female came to the ED with left lower abdominal pain radiating to left flank area started yesterday morning. History of kidney stone. She denies any fever, chills, nausea, vomiting. Patient believes that her symptom consistent with her history of kidney stone. Related Data Home Medications ?Medication ?Instructions ?Recorded ?Confirmed ?Last Taken ?Type multivitamin 1 tablet PO DAILY 04/04/22 12/29/24 12/28/24 History nebivolol 10 mg tablet (Bystolic) 10 mg PO BID 10/21/24 12/29/24 12/29/24 History omeprazole 20 mg capsule,delayed 20 mg PO DAILY 11/23/24 12/29/24 12/28/24 History release tamsulosin 0.4 mg capsule 0.4 mg PO DAILY PRN urinary 11/26/24 12/29/24 12/28/24 History retention Allergies Allergy/AdvReac Type Severity Reaction Status Date / Time ketorolac (From Toradol) Allergy Headache,Rash, Verified 01/19/25 03:07 Swollen tongue tramadol AdvReac Mild VOMITING/HE Verified 01/19/25 03:07 ADACHE hydralazine AdvReac Headache Verified 01/19/25 03:07 Review of Systems Review of Systems: All systems reviewed & are unremarkable except as noted in HPI and below PMFSH Past Medical History Medical History Left ureteral stone Hypertension Gastroesophageal reflux disease Sleep paralysis, recurrent isolated Smoker Obesity Depression Multiple kidney stones Seasonal allergies Surgical History Surgical History H/O ureteroscopy 10/21/24 on the right due to proximal ureteral stone; Dr Gonzalez History of laparoscopic cholecystectomy on 04/25/23 PDC History of tubal ligation History of endometrial ablation (2009) History of hysterectomy (2015) History of open reduction and internal fixation (ORIF) procedure (2012) Left elbow. History of section 2000, 2001, 2009 Status post cystoscopy with ureteral stent placement Family History Family History Mother Diabetes mellitus Depression Alcoholism Father Hypertension Diabetes mellitus Sibling Congenital heart disease Son Asthma Grandparent Diabetes mellitus Cerebrovascular accident Social History Social History Social History: Surrogate medical decision maker: Bang Luke, spouse. Code status: Full code. Smoking packs per day: 0.5 Smoking cigarettes per day: 10.0 Years smoked: 32 Smoking pack-years: 16.00 Smoking status: Current every day smoker Tobacco type: cigarettes Second hand tobacco smoke exposure: Yes Alcohol intake: never Alcohol use details: Social alcohol use in moderation. Substance use: never Substance use type: does not use Do You Feel Safe in your Home?: Yes Lack of Transportation: No Lack of Food: Never True Current Housing: I Have Housing Concerned About Future Housing: No Difficulty Paying Gas/Electric Bills: No Difficulty Paying for Meds: No Currently Unemployed: YES Education: High School Diploma/GED Difficulty w/ Childcare or Family Care: No Living arrangements: with family Spiritual care concerns: No Exam Narrative: General appearance: Well-developed, well-nourished Skin: Normal color Head: Normocephalic, nontraumatic Eyes: Clear conjunctiva ENT: Oropharynx normal, ears normal, nose normal Neck: Supple, nontender Chest and respiratory: Airway patent, no respiratory distress, no accessory muscle use Heart: Regular rate/rhythm Abdomen: Soft, Severe tenderness left lower quadrant and left flank area, no bruises, no swelling or rash, no organomegaly, quiet bowel sounds Vascular: Normal peripheral pulses, normal capillary refill. Musculoskeletal: Normal range of motion, nontender back Neurologic: Alert and oriented ?3, INSERTING OPERATOR is normal as tested, no gross motor deficit Course Vital Signs Vital signs: Vital Signs Temperature 36.2 C L 01/10/25 12:15 Pulse Rate 103 H 01/10/25 12:15 Respiratory Rate 16 01/10/25 12:15 Blood Pressure 175/115 H 01/10/25 12:15 Pulse Oximetry 99 01/10/25 12:15 Oxygen Delivery Room Air 01/10/25 12:15 Temperature 36.2 C L 01/10/25 12:15 Pulse Rate 103 H 01/10/25 12:15 Respiratory Rate 16 01/10/25 12:15 Blood Pressure 175/115 H 01/10/25 12:15 Pulse Oximetry 99 01/10/25 12:15 Oxygen Delivery Room Air 01/10/25 12:15 Medical Decision Making [facility] Narrative Medical decision making narrative: Patient came with left flank pain, Vital signs showing blood pressure 175/115, heart rate 103 otherwise within normal limit Physical examination showing slight tenderness left flank area Differential diagnosis include kidney stone, urinary tract infection, musculoskeletal pain Blood workup today includes CBC, CMP, lipase showed insignificant abnormality Urinalysis showed no evidence of infection CT abdomen and pelvis without contrast showed no kidney stone Diagnosis left flank pain Discharged on Tylenol, ibuprofen as needed. Discharge the pt was discharged to home.the pt,s condition upon discharge was fair,education was provided to the pt in reference to the final impression,discharge study results,treatment,prognosis and need for follow up . Vital Signs Vital Signs: Vital Signs Temperature 36.2 C L 01/10/25 12:15 Pulse Rate 103 H 01/10/25 12:15 Respiratory Rate 16 01/10/25 12:15 Blood Pressure 175/115 H 01/10/25 12:15 Pulse Oximetry 99 01/10/25 12:15 Oxygen Delivery Room Air 01/10/25 12:15 Temperature 36.2 C L 01/10/25 12:15 Pulse Rate 103 H 01/10/25 12:15 Respiratory Rate 16 01/10/25 12:15 Blood Pressure 175/115 H 01/10/25 12:15 Pulse Oximetry 99 01/10/25 12:15 Oxygen Delivery Room Air 01/10/25 12:15 Lab Data 01/10/25 13:57 01/10/25 13:57 Labs: Lab Results 01/10/25 Range/Units 13:57 WBC 10.4 H (4.5-10.0) K/mm3 RBC 5.10 (4.2-5.4) M/mm3 Hgb 15.6 H (12.0-15.0) g/dL Hct 44.4 (37.0-47.0) % MCV 87.1 (80-100) fl MCH 30.6 (26-34) pg MCHC 35.1 (32-36) g/dl RDW 12.8 (11.5-14.5) % Plt Count 275 (150-375) k/mm3 MPV 9.2 (7.4-10.4) fl Immature Gran % (Auto) 0.4 (0-0.5) % Neut % (Auto) 75.4 H (45.5-73.1) % Lymph % (Auto) 17.0 L (18.3-44.2) % [place] % (Auto) 6.3 (2.6-8.5) % Eos % (Auto) 0.5 (0-4.4) % Baso % (Auto) 0.4 (0.2-1.2) % Lymph # (Auto) 1.77 (0.9-3.2) K/mm3 [place] # (Auto) 0.7 H (0.1-0.6) K/mm3 Eos # (Auto) 0.1 (0-0.3) K/mm3 Baso # (Auto) 0.0 (0.0-0.1) K/mm3 Abs Immat Gran (auto) 0.04 H (0.00-0.031) K/mm3 Absolute Neuts (auto) 7.8 H (1.3-6.7) K/mm3 Absolute Nucleated RBC 0.000 (0.0-0.012) K/mm3 Nucleated RBC % 0.0 (0.0-0.2) % Sodium 139 (137-145) mmol/L Potassium 4.1 (3.4-5.0) mmol/L Chloride 107 (98-107) mmol/L Carbon Dioxide 21 L (22-30) mmol/L Anion Gap 11 (4-12) mmol/L BUN 9 D (7-17) mg/dL Creatinine 0.53 L (0.7-1.0) mg/dL Estim Creat Clear Calc 117 ml/min Estimated GFR > 60 (59 - ) Glucose 93 (65-110) mg/dL Calcium 9.9 (8.4-10.2) mg/dL Total Bilirubin 0.6 (0.2-1.3) mg/dL AST 49 H (14-36) U/L ALT 53 H (6-35) U/L Alkaline Phosphatase 94 (38-126) U/L Total Protein 8.0 (6.3-8.2) g/dL Albumin 4.6 (3.5-5.1) g/dL Lipase 88 (23-300) U/L Urine Color Yellow (Yellow) Urine Appearance Clear (Clear) Urine pH 7.0 (5.0-9.0) Ur Specific [place] 1.008 (1.001-1.035) Urine Protein Negative (Negative) mg/dL Urine Glucose (UA) Negative (Negative) mg/dL Urine Ketones Negative (Negative) mg/dL Ur Blood (Man) Negative (Negative) Urine Nitrate Negative (Negative) Urine Bilirubin Negative (Negative) Urine Urobilinogen 0.2 (<2.0) mg/dL Leukocyte Esterase Rfl Negative (Negative) ALEKSANDRA/UL Imaging Data Radiologist's impression: Impressions Abdomen/Pelvis CT 01/10/25 13:00 IMPRESSION: 1. Bilateral nonobstructing nephrolithiasis. No ureteral stones or hydronephrosis. 2. Prominent diffuse hepatic steatosis. Critical Care Time Critical Care Time Critical Care Time: No Discharge Plan Discharge Clinical Impression: Acute flank pain Patient Disposition: Home Condition: Stable Instructions: Flank Pain (ED) Patient Language: Marshallese Prescriptions: No Action multivitamin Tablet 1 tablet PO DAILY ondansetron 4 mg tablet,disintegrating 4 mg PO Q8H Qty: 14 0RF nebivolol [Bystolic] 10 mg tablet 10 mg PO BID acetaminophen 500 mg capsule 1,000 mg PO Q6H PRN (Reason: pain) Qty: 30 0RF tamsulosin 0.4 mg capsule 0.4 mg PO DAILY PRN (Reason: urinary retention) Rx Instructions: kidney stones docusate sodium 100 mg Capsule 100 mg PO DAILY Qty: 30 0RF omeprazole 20 mg capsule,delayed release(DR/EC) 20 mg PO DAILY ondansetron 4 mg tablet,disintegrating 4 mg PO Q8H PRN (Reason: nausea and vomiting) Qty: 14 0RF oxycodone 5 mg tablet 5 mg PO Q8H PRN (Reason: pain) Qty: 5 0RF amlodipine 10 mg tablet See Rx Instructions .ROUTE .COMPLEX Qty: 90 0RF Dose Instruction: TAKE 1 TABLET BY MOUTH DAILY Rx Instructions: TAKE 1 TABLET BY MOUTH DAILY losartan 50 mg tablet See Rx Instructions .ROUTE .COMPLEX Qty: 180 0RF Dose Instruction: TAKE 1 TABLET BY MOUTH TWICE DAILY Rx Instructions: TAKE 1 TABLET BY MOUTH TWICE DAILY hydrochlorothiazide 25 mg tablet See Rx Instructions .ROUTE .COMPLEX Qty: 90 0RF Dose Instruction: TAKE 1 TABLET BY MOUTH EVERY MORNING Rx Instructions: TAKE 1 TABLET BY MOUTH EVERY MORNING Follow-up/Referrals: Lucas Carter, DO [Primary Care Provider] -
[2025-01-10] MEDS: TAMSULOSIN HCL 0.4 MG CAPSULE PO (13:58)
[2025-01-10] MEDS: HYDROmorphone HCL INJ (*CRX) 2 MG/ML VIAL 0.5 MG IV PUSH (13:58)
[2025-01-10] MEDS: ONDANSETRON INJ 4 MG/2 ML VIAL IV PUSH (13:58)
[2025-01-10] MEDS: SODIUM CHLORIDE 0.9% IV 1,000 ML 999 ML IV CONT (13:58)
[2025-01-10 14:11] LABS: Basophils Percent Auto 0.4 % (0.2-1.2); Eosinophils Absolute Auto 0.1 K/mm3 (0-0.3); Eosinophils Percent Auto 0.5 % (0-4.4); Hematocrit 44.4 % (37.0-47.0); Hemoglobin 15.6 g/dL (12.0-15.0); Immature Granulocyte Absolute 0.04 K/mm3 (0.00-0.031); Immature Granulocyte Percent A 0.4 % (0-0.5); Lymphocytes Absolute Auto 1.77 K/mm3 (0.9-3.2); Mean Corpuscular HGB Conc 35.1 g/dl (32-36); Mean Corpuscular Hemoglobin 30.6 pg (26-34); Mean Corpuscular Volume 87.1 fl (80-100); Mean Platelet Volume 9.2 fl (7.4-10.4); Monocytes Absolute Auto 0.7 K/mm3 (0.1-0.6); Monocytes Percent Auto 6.3 % (2.6-8.5); Neutrophils Absolute Auto 7.8 K/mm3 (1.3-6.7); Neutrophils Percent Auto 75.4 % (45.5-73.1); Platelet Count Result 275 k/mm3 (150-375); Red Cell Distribution Width 12.8 % (11.5-14.5); White Blood Count 10.4 K/mm3 (4.5-10.0)
[2025-01-10 14:15] LABS: Add Urine Microscopic? NO; Appearance Urine Clear (Clear); Bilirubin Urine Negative (Negative); Blood Urine Negative (Negative); Color Urine Yellow (Yellow); Glucose Urine UA Negative (Negative); Ketones Urine Negative (Negative); Leukocyte Esterase Ur Negative LEU/UL (Negative); Nitrate Urine Negative (Negative); Protein Urine Negative (Negative); Specific Grav Ur 1.008 (1.001-1.035); Urobilinogen Urine 0.2 mg/dL (<2.0)
[2025-01-10 14:38] LABS: Alanine Aminotransferase 53 U/L (6-35); Albumin Level 4.6 g/dL (3.5-5.1); Alkaline Phosphatase 94 U/L (38-126); Anion Gap 11 mmol/L (4-12); Aspartate Amino Transferase 49 U/L (14-36); Bilirubin,Total 0.6 mg/dL (0.2-1.3); Blood Urea Nitrogen 9 mg/dL (7-17); Calcium 9.9 mg/dL (8.4-10.2); Carbon Dioxide 21 mmol/L (22-30); Chloride 107 mmol/L (98-107); Estimated CRCL calculation 117 ml/min; Estimated Glomerular Filt Rate > 60; Glucose 93 mg/dL (65-110); Lipase 88 U/L (23-300); Potassium 4.1 mmol/L (3.4-5.0); Sodium 139 mmol/L (137-145)
--- OUTSIDE RECORDS SUMMARY | 2025-01-10 18:04 | XMS_ITS | Clinical Summary ---
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 5 Active ondansetron (ZOFRAN-ODT) 4 MG TABLET DISPERSIBLE DISSOLVE 1 TABLET ON TONGUE EVERY 6 HOURS NEEDED FOR NAUSEA AND VOMITING 5 Active naproxen (NAPROSYN) 500 MG Tablet TAKE 1 TABLET BY MOUTH EVERY 12 HOURS WITH FOOD NEEDED FOR PAIN 5 Active acetaminophen Extra Strength (TYLENOL) 500 MG Tablet TAKE 2 TABLETS (1000 MG) BY MOUTH THREE TIMES A DAY NEEDED FOR PAIN FOR 7 DAYS 5 Active losartan (COZAAR) 50 MG Tablet Take 50 mg by mouth 2 times daily. Active hydroCHLOROthiaz sandeep 25 MG Tablet Take 25 mg by mouth daily. Active amLODIPine (NORVASC) 10 MG Tablet Take 10 mg by mouth daily. Active nebivolol (Bystolic) 5 MG Tablet Take by mouth 2 times daily. Active Encounters Date Type Department Care Team Description 12/30/2024 Telephone [facility] - Family Medicine [facility] [address] [place] [address] Damian Diamond MD 11/13/2024 Travel 11/13/2024 Telephone [facility] [address] [place] [phone] Carlyle Calderon MD 11/12/2024 Telephone [facility] [address] [place] [address] Carlyle Calderon MD from Last 3 Months Immunizations Immunization Administration Dates Next Due Influenza Vaccine, Quadrivalent, PF 06/24/2015 Influenza,Split Virus,Trivalent,Injectable,PF Family History Medical History Relation Name Comments No Known Problems Brother Diabetes Father Hypertension Father trigeminal Father trigeminal neur algia Alcohol Abuse Mother Alzheimer's Disease Mother Atrial fibrillation Mother Hypothyroidism Mother Congenital Heart Disease Sister 1 Migraines Sister 2 Relation Name Status Comments Brother Alive Father Alive Mother Sister 1 Sister 2 Alive Social History Tobacco Use Types Packs/Day Years Used Date Smoking Tobacco: Every Day Cigarettes Smokeless Tobacco: Never Tobacco Cessation:Ready to Q uit: Not Asked; Counseling Given: Not Answered Alcohol Use Standard Drinks/Week Comments Not Currently 0 (1 standard drink = 0.6 oz pur e alcohol) Sexually Active Control Partners Comments Not Currently Male Comments Unknown Sex and Gender Information Value Date Recorded Sex Assigned at Female 01/08/2025 1:59 AM CDT Legal Sex Female 3:04 PM CDT Gender Identity Female 01/08/2025 1:59 AM CDT Sexual Orientation Straight 01/08/2025 1: 59 AM CDT Last Filed Vital Signs Vital Sign Reading Time Taken Comments Blood Pressure - - Pulse - - Temperature - - Respiratory Rate - - Oxygen Saturation - - Inhaled Oxygen Concentration - - Weight 81.6 kg (180 lb) 11/13/2024 3:13 PM CDT Height 160 cm (5' 3) 11/13/2024 3:13 PM CDT Body Mass Index 31.89 11/13/2024 3:13 PM CDT Plan of Treatment Upcoming Encounters Date Type Department Care Team (Late st Contact Info) Description 01/11/2025 7:45 AM CDT Appointment [facility] [address] [place] [phone] Mammo Self Referred, [facility] 01/13/2025 12:30 PM CDT Office Visit [facility] - Family Medicine [facility] [address] [place] [address] Damian Diamond MD [address] [address] Health Maintenance Due Date Last Done Comments [...]
--- OUTSIDE RECORDS SUMMARY | 2025-01-10 18:04 | XMS_ITS | CONTINUITY OF CARE DOCUMENT ---
Author Name [email or web address] Address Unknown Organization [facility] Address [address] [place] [address] Phone [phone] Care Team Providers Care Sheet Metal Erector Name Role Phone William CURIEL, Herlinda Unavailable SHAWNEE CURIEL, NABIL Schmidt Unavailable INSURANCE PROVIDERS Payer name Policy type / Coverage type Bj red democrat [place] Medicaid [id number] [facility] [id number]
--- OUTSIDE RECORDS SUMMARY | 2025-01-10 18:04 | XMS_ITS | Referral Summary ---
Author Organization [facility] Address 1 [place] [address] Care Team Providers Care Rn Plastic Surgery Name Role Phone Lucas Carter DO Primary Care Provider [phone] Encounters Date Type Department Care Team Description 10/31/2024 4:48 PM CDT - 10/31/2024 10:51 PM CDT Emergency [facility] Emergency Department 1 [place] [address] Yanni Garcia MD Flank pain (Primary Dx) Discharge Disposition: Discharge to home or self care from Last 3 Months Allergies Active Allergy Reactions Criticality Noted Date Comments Hydralazine Headache,Vomiting Low 01/21/2024 Ketorolac Hives,Itching Medium 10/17/2017 Tramadol Hives,Urticaria Medium 08/27/2016 Medications omeprazole (PriLOSEC) 20 mg capsuleIndications :Treatment of Non-Bleeding Gastric Disorder Take 1 capsule (20 mg total) by mouth loading dock hand before breakfast Active MULTIVIT-MINERALS/ FERROUS FUM (MULTI VITAMIN ORAL)Indications:h ealth Take 1 tablet by mouth loading dock hand before breakfast Active ondansetron ODT (ZOFRAN-ODT) 4 [...] 1 tablet (25 mg total) by mouth loading dock hand before breakfast Active nebivoloL (BYSTOLIC) 10 mg [...] Date Smoking Tobacco: Every Day Cigarettes 0.8 33.2 Started: 11/11/1991 Smokeless Tobacco: Never Tobacco Cessation:Ready [...] on file Legal Sex Female 9:06 PM CABLE HOOKER Gender Identity Female 10/01/2023 8:44 AM CABLE HOOKER Sexual Orientation Straight 10/01/2023 8: 44 AM CABLE HOOKER Last Filed Vital Signs Vital Sign Reading [...] 4:17 PM CDT Height 160 cm (5' 3) 06/29/2024 7:50 AM CABLE HOOKER Body Mass Index 32.57 06/29/2024 7:50 AM CABLE HOOKER Plan of Treatment Not on file Goals [...] stairs Contact your local community or [facility] for information on exercise, fall prevention programs, or options for improving home safety. Medical Devices Implanted Type Area Line Haul Owner Operator Device Identifier Shelf Expiration Date Model [...] MD LAB BLOOD ORDERABLES Final R esult [facility] [place] [address] * (ABNORMAL) Differential, auto (10/31/2024 5:42 PM CDT) Neutrophil abs 5.6 1.5 - 6.5 K/cumm Imm gran abs 0.0 0.0 - 0.1 K/cumm [facility] Lymphocyte abs 2.3 0.8 - 3.3 K/cumm [facility] Monocyte abs 0.9(H) 0.2 - 0.8 K/cumm [facility] Eosinophil abs 0.1 0.0 - 0.5 K/cumm [facility] Basophil abs 0.1 0.0 - 0.1 K/cumm [facility] Neutrophil pct 62.4 % [facility] Comment: Interpretive Data Percent cell count reference ranges are not reported, since discordance with absolute values may lead to misinterpretation of CBC data. Current Interpretive Data was last revised on 2017. Imm gran pct 0.3 % [facility] Comment: Interpretive Data Percent cell count reference ranges are not reported, since discordance with absolute values may lead to misinterpretation of CBC data. Current Interpretive Data was last revised on 2017. Lymphocyte pct 25.2 % [facility] Comment: Interpretive Data Percent cell count reference ranges are not reported, since discordance with absolute values may lead to misinterpretation of CBC data. Current Interpretive Data was last revised on 2017. Monocyte pct 10.0 % [facility] Comment: Interpretive Data Percent cell count reference ranges are not reported, since discordance with absolute values may lead to misinterpretation of CBC data. Current Interpretive Data was last revised on 2017. Eosinophil pct 1.5 % [facility] Comment: Interpretive Data Percent cell count reference ranges are not reported, since discordance with absolute values may lead to misinterpretation of CBC data. Current Interpretive Data was last revised on 2017. Basophil pct 0.6 % [facility] Comment: Interpretive Data Percent cell count reference ranges are not reported, since discordance with absolute values may lead to misinterpretation of CBC data. Current Interpretive Data was last revised on 2017. Blood 10/31/2024 5:42 PM CDT 10/31/2024 5:51 PM CDT Severo Mckeon MD LAB BLOOD ORDERABLES Final R esult Performing Organization Address City/State/[facility] Co de Phone Number [facility] Department [place] [address] * Urinalysis reflex to microscopic and culture Urine (10/31/2024 5:42 PM CDT) Color, ur Straw Yellow Clarity, ur Clear Clear [facility] Specific gravity, ur 1.011 1.003 - 1.030 [facility] pH, urine 5.5 [facility] Comment: Interpretive Data U rine pH is affected by diet, medications, systemic acid-base disturbances, and renal tubular function. pH may affect urinary stone formation. For example, urine pH below 6.0 may help reduce the tendency for calcium phosphate stones and pH greater than 6.0 may reduce the tendency for uric acid stone formation. Source: [facility] Current Interpretive Data was last revised on 2017 Protein, ur ql Negative Negative [facility] Glucose, ur ql Negative Negative [facility] Ketones, ur Negative Negative [facility] Bilirubin, ur Negative Negative [facility] Blood, ur Negative Negative [facility] Urobilinogen, ur <2.0 <2.0 mg/dL [facility] Nitrite, ur Negative Negative [facility] Leukocyte esterase, ur Negative Negative [facility] UA reflex comment Reflex conditions for microscopic UA and culture not met. [facility] Urine 10/31/2024 5:42 PM CDT 10/31/2024 5:49 PM CDT Minda Gurrola MD LAB MICROBIOLOGY - GENER AL ORDERABLES Final Result Performing Organization Address City/[facility] Co de Phone Number [facility] [place] [address] * (ABNORMAL) CBC with auto differential (10/31/2024 5:42 PM CDT) Pathologist [facility] WBC 8.9 3.8 - 9.9 K/cumm Hgb 16.1(H) 11.9 - 15.5 g/dL [facility] Hct 45.8(H) 35.6 - 45.5 % [facility] Plt 319 150 - 400 K/cumm [facility] MPV 9.2 9.1 - 12.3 fL [facility] RBC 5.35(H) 3.90 - 5.20 M/cumm [facility] MCV 85.6 81.3 - 96.4 fL [facility] MCH 30.1 27.1 - 33.3 pg [facility] MCHC 35.2 32.3 - 35.7 g/dL [facility] RDW CV 12.5 11.1 - 14.9 % [facility] RDW SD 38.8 35.7 - 48.1 fL [facility] NRBC abs 0.00 0.00 - 0.01 K/cumm [facility] Blood Venous blood specimen / Unknown 10/31/2024 5:42 PM CDT 10/31/2024 5:51 PM CDT us Yanni Garcia MD LAB BLOOD ORDERABLES Final Result [facility] [place] [address] * Lipase (10/31/2024 5:42 PM CDT) Pathologist [facility] Lipase 41 10 - 99 Units/L Blood Venous blood specimen / Unknown 10/31/2024 5:42 PM CDT 10/31/2024 5:51 PM CDT Yanni Garcia MD LAB BLOOD ORDERABLES Final Result [facility] [place] [address] * (ABNORMAL) Comprehensive metabolic panel (10/31/2024 5:42 PM CDT) Sodium 142 135 - 145 mmol/L Potassium, pl 4.2 3.3 - 4.9 mmol/L [facility] Chloride 105 97 - 110 mmol/L [facility] CO2 24 22 - 32 mmol/L [facility] Anion gap 13 2 - 15 mmol/L [facility] BUN 9 6 - 25 mg/dL [facility] Creatinine 0.65 0.60 - 1.10 mg/dL [facility] Glucose 84 70 - 199 mg/dL [facility] Comment: Interpretive Data Fasting glucose [...] Calcium 10.3 8.5 - 10.3 mg/dL [facility] Bilirubin, total 0.3 0.1 - 1.2 mg/dL [facility] Protein, pl 8.3 6.5 - 8.5 g/dL [facility] Albumin 4.7 3.5 - 5.0 g/dL [facility] Alk phos 105 40 - 130 Units/L [facility] ALT 68(H) 7 - 45 Units/L [facility] AST 48(H) 10 - 45 Units/L [facility] Blood Venous blood specimen / Unknown 10/31/2024 5:42 PM CDT 10/31/2024 5:51 PM CDT Yanni Garcia MD LAB BLOOD ORDERABLES Final Result [facility] [place] [address] * ECG 12-LEAD (10/31/2024 4:30 PM CDT) [...] in the ED Yanni Garcia MD 10/31/24 7377 us Yanni Garcia MD ECG ORDERABLES Final Resul t [facility] from Last 3 Months Insurance [employer]PA [facility] CHOICE PLUS [facility] IDPA IDPA Advance Directives For more information, please contact: [phone] * Full Code (Latest Code Status on File) Date Activated Date Inactivated Comments 08/15/2022 3:10 PM 08/18/2022 6:09 PM Care Teams Rn Plastic Surgery Relationship Specialty Start Date End Date Lucas Carter DO PCP - General Internal Medicine 08/15/22
--- OUTSIDE RECORDS SUMMARY | 2025-01-10 18:04 | XMS_ITS | Clinical Summary ---
Author Organization [facility] al Address [address] [place] [address] Care Team Providers Care State Inspector Name Role Phone Lucas Carter DO Primary Care Provider [phone]- [phone] Allergies Active Allergy Reactions Criticality Noted Date Comments Hydralazine Headache,Vomiting Low 01/21/2024 Ketorolac Hives,Itching Medium 10/17/2017 Tramadol Hives,Urticaria Medium 08/27/2016 Medications omeprazole (PriLOSEC) 20 mg capsuleIndications :Treatment of Non-Bleeding Gastric Disorder Take 1 capsule (20 mg total) by mouth dry janitor before breakfast Active MULTIVIT-MINERALS/ FERROUS FUM (MULTI VITAMIN ORAL)Indications:h ealth Take 1 tablet by mouth dry janitor before breakfast Active ondansetron ODT (ZOFRAN-ODT) 4 [...] 1 tablet (25 mg total) by mouth dry janitor before breakfast Active nebivoloL (BYSTOLIC) 10 mg [...] CDT - 10/31/2024 10:51 PM CDT Emergency [facility] Emergency Department 1 [place] [address] Yanni Garcia MD Flank pain (Primary Dx) [...] [place] Maternal Grandfather Beka Sr. Maternal Grandmother [place] Mother Lisae Paternal Grandfather Dusty Sister Sarai [...] on file Legal Sex Female 9:06 PM MANAGER SIMULATION Gender Identity Female 10/01/2023 8:44 AM MANAGER SIMULATION Sexual Orientation Straight 10/01/2023 8: 44 AM MANAGER SIMULATION Obstetrics History Para Term AB IAB SAB [...] 160 cm (5' 3) 06/29/2024 7:50 AM MANAGER SIMULATION Body Mass Index 32.57 06/29/2024 7:50 AM MANAGER SIMULATION Plan of Treatment Health Maintenance Due Date [...] home safety. Medical Devices Implanted Type Area [employer] Emergency Services Manager Device Identifier Shelf Expiration Date Model [...] hCG, urine (10/31/2024 6:32 PM CDT) Pathologist [facility] HCG, ur, POC Negative Negative Lot Number [id number] QC Backgroud Clear Acceptable QC Control Line Acceptable Urine 10/31/2024 6:[address] [facility] Yanni Garcia MD POINT OF CARE TEST ORDERABL ES Final Result * eGFR (10/31/2024 5:42 PM CDT) Pathologist [facility] eGFR >90 >=60 mL/min/1. 73 m2 Comment: [...] LAB BLOOD ORDERABLES Final R esult [facility] [place] [address] * (ABNORMAL) Differential, auto (10/31/2024 5:42 PM CDT) Neutrophil abs 5.6 1.5 - 6.5 K/cumm Imm gran abs 0.0 0.0 - 0.1 K/cumm [facility] Lymphocyte abs 2.3 0.8 - 3.3 K/cumm [facility] Monocyte abs 0.9(H) 0.2 - 0.8 K/cumm [facility] Eosinophil abs 0.1 0.0 - 0.5 K/cumm [facility] Basophil abs 0.1 0.0 - 0.1 K/cumm [facility] Neutrophil pct 62.4 % [facility] Comment: Interpretive Data Percent cell count reference ranges are not reported, since discordance with absolute values may lead to misinterpretation of CBC data. Current Interpretive Data was last revised on 2017. Imm gran pct 0.3 % [facility] Comment: Interpretive Data Percent cell count reference ranges are not reported, since discordance with absolute values may lead to misinterpretation of CBC data. Current Interpretive Data was last revised on 2017. Lymphocyte pct 25.2 % [facility] Comment: Interpretive Data Percent cell count reference ranges are not reported, since discordance with absolute values may lead to misinterpretation of CBC data. Current Interpretive Data was last revised on 2017. Monocyte pct 10.0 % [facility] Comment: Interpretive Data Percent cell count reference ranges are not reported, since discordance with absolute values may lead to misinterpretation of CBC data. Current Interpretive Data was last revised on 2017. Eosinophil pct 1.5 % [facility] Comment: Interpretive Data Percent cell count reference ranges are not reported, since discordance with absolute values may lead to misinterpretation of CBC data. Current Interpretive Data was last revised on 2017. Basophil pct 0.6 % [facility] Comment: Interpretive Data Percent cell count reference ranges are not reported, since discordance with absolute values may lead to misinterpretation of CBC data. Current Interpretive Data was last revised on 2017. Blood 10/31/2024 5:42 PM CDT 10/31/2024 5:51 PM CDT Severo Mckeon MD LAB BLOOD ORDERABLES Final R esult Performing Organization Address City/[facility]/ZIP Co de Phone Number [facility] [place] [address] * Urinalysis reflex to microscopic and culture Urine (10/31/2024 5:42 PM CDT) Color, ur Straw Yellow Clarity, ur Clear Clear [facility] Specific gravity, ur 1.011 1.003 - 1.030 [facility] pH, urine 5.5 [facility] Comment: Interpretive Data U rine pH is affected by diet, medications, systemic acid-base disturbances, and renal tubular function. pH may affect urinary stone formation. For example, urine pH below 6.0 may help reduce the tendency for calcium phosphate stones and pH greater than 6.0 may reduce the tendency for uric acid stone formation. Source: [facility] Current Interpretive Data was last revised on 2017 Protein, ur ql Negative Negative [facility] Glucose, ur ql Negative Negative [facility] Ketones, ur Negative Negative [facility] Bilirubin, ur Negative Negative [facility] Blood, ur Negative Negative [facility] Urobilinogen, ur <2.0 <2.0 mg/dL [facility] Nitrite, ur Negative Negative [facility] Leukocyte esterase, ur Negative Negative [facility] UA reflex comment Reflex conditions for microscopic UA and culture not met. [facility] Urine 10/31/2024 5:42 PM CDT 10/31/2024 5:49 PM CDT Minda Gurrola MD LAB MICROBIOLOGY - GENER AL ORDERABLES Final Result [facility] [place] [address] * (ABNORMAL) CBC with auto differential (10/31/2024 5:42 PM CDT) [facility] WBC 8.9 3.8 - 9.9 K/cumm Hgb 16.1(H) 11.9 - 15.5 g/dL [facility] Hct 45.8(H) 35.6 - 45.5 % [facility] Plt 319 150 - 400 K/cumm [facility] MPV 9.2 9.1 - 12.3 fL [facility] RBC 5.35(H) 3.90 - 5.20 M/cumm [facility] MCV 85.6 81.3 - 96.4 fL [facility] MCH 30.1 27.1 - 33.3 pg [facility] MCHC 35.2 32.3 - 35.7 g/dL [facility] RDW CV 12.5 11.1 - 14.9 % [facility] RDW SD 38.8 35.7 - 48.1 fL [facility] NRBC abs 0.00 0.00 - 0.01 K/cumm [facility] Blood Venous blood specimen / Unknown 10/31/2024 5:42 PM CDT 10/31/2024 5:51 PM CDT us Yanni Garcia MD LAB BLOOD ORDERABLES Final Result Performing Organization Address City/[facility]/ZIP Co de Phone Number [facility] [place] [address] * Lipase (10/31/2024 5:42 PM CDT) [facility] Lipase 41 10 - 99 Units/L Blood Venous blood specimen / Unknown 10/31/2024 5:42 PM CDT 10/31/2024 5:51 PM CDT Yanni Garcia MD LAB BLOOD ORDERABLES Final Result [facility] [place] [address] * (ABNORMAL) Comprehensive metabolic panel (10/31/2024 5:42 PM CDT) Sodium 142 135 - 145 mmol/L Potassium, pl 4.2 3.3 - 4.9 mmol/L [facility] Chloride 105 97 - 110 mmol/L [facility] CO2 24 22 - 32 mmol/L [facility] Anion gap 13 2 - 15 mmol/L [facility] BUN 9 6 - 25 mg/dL [facility] Creatinine 0.65 0.60 - 1.10 mg/dL [facility] Glucose 84 70 - 199 mg/dL [facility] Comment: Interpretive Data Fasting glucose >/= [...] 2022. Calcium 10.3 8.5 - 10.3 mg/dL [facility] Bilirubin, total 0.3 0.1 - 1.2 mg/dL [facility] Protein, pl 8.3 6.5 - 8.5 g/dL [facility] Albumin 4.7 3.5 - 5.0 g/dL [facility] Alk phos 105 40 - 130 Units/L [facility] ALT 68(H) 7 - 45 Units/L [facility] AST 48(H) 10 - 45 Units/L [facility] Blood Venous blood specimen / Unknown 10/31/2024 5:42 PM CDT 10/31/2024 5:51 PM CDT us Yanni Garcia MD LAB BLOOD ORDERABLES Final Result [facility] [place] [address] * ECG 12-LEAD (10/31/2024 4:30 PM CDT) Narrative [facility] - 10/31/2024 4:30 PM CDT [...] in the ED Yanni Garcia MD 10/31/24 7428 us Yanni Garica MD ECG ORDERABLES Final Resul t [facility] from Last 3 Months Insurance [employer] [facility] [place] [place] [address] IDPA IDPA Advance Directives For more information, please contact: [phone] * Full Code (Latest Code Status on File) Date Activated Date Inactivated Comments 08/15/2022 3:10 PM 08/18/2022 6:09 PM Care Teams State Inspector Relationship Specialty Start Date End Date Lucas Carter DO PCP - General Internal Medicine 08/15/22
--- OUTSIDE RECORDS SUMMARY | 2025-01-10 18:04 | XMS_ITS | Clinical Summary ---
Author Organization [facility] Address [address] [place] [address] Care Team Providers Care Transformation Consultant Name Role Phone Damian Sadler MD Primary Care Provider [phone] Source Comments [facility],non-owned Affiliates and Associated Physician Practices is amultiple site organization consisting of ambulatory clinics and hospital sitesin [place], [place], [place] and [place]. This disclosure is being madepursuant to the Care Everywhere program and may not contain all information available regarding this patient. Last updated 18.[facility] Allergies Active Allergy Reactions Criticality Noted Date [...] on file Legal Sex Female 11:41 AM ENOLOGIST Gender Identity Not on file Sexual Orientation [...] 9:18 AM CDT Height 160 cm (5' 3) 02/20/2024 9:18 AM CDT Body Mass Index [...] Comment [facility] [address] [id number] us Nancy Cotto MD LAB - CHEMISTRY ORDERABLES Final Result [facility] INSURANCE BILL [address] [place] [address] * (ABNORMAL) COMPREHENSIVE METABOLIC PANEL (02/03/2024 1:03 AM [facility] BUN 9 7 - 26 mg/dL 02/03/2024 1:45 AM [facility] Creatinine 0.64 0.56 - 0.96 mg/dL 02/03/2024 1:45 AM [facility] Sodium 139 136 - 145 mmol/L 02/03/2024 1:45 AM [facility] Potassium 3.4(L) 3.5 - 4.5 mmol/L 02/03/2024 1:45 AM [facility] Chloride 107 98 - 107 mmol/L 02/03/2024 1:45 AM [facility] CO2 21(L) 22 - 29 mmol/L 02/03/2024 1:45 AM [facility] Glucose 78 70 - 115 mg/dL 02/03/2024 1:45 AM [facility] Calcium 9.9 8.4 - 10.2 mg/dL 02/03/2024 1:45 AM [facility] Protein Total 7.7 6.0 - 8.3 g/dL 02/03/2024 1:45 AM [facility] Albumin 4.4 3.4 - 5.0 g/dL 02/03/2024 1:45 AM [facility] Bilirubin Total 0.4 0.2 - 1.2 mg/dL 02/03/2024 1:45 AM [facility] Alkaline Phosphatase 81 40 - 150 U/L 02/03/2024 1:45 AM [facility] ALT 58(H) 5 - 55 U/L 02/03/2024 1:45 AM [facility] AST 33 5 - 34 U/L 02/03/2024 1:45 AM [facility] Anion Gap 11 6 - 16 02/03/2024 1:45 AM [facility] BUN/Creatinine Ratio 14 7 - 23 02/03/2024 1:45 AM [facility] Osmolality Calculated 286 275 - 295 mOsm/kg 02/03/2024 1:45 AM [facility] Albumin/Globulin Ratio 1.3 1.1 - 2.3 02/03/2024 1:45 AM [facility] eGFR by CKD-EPI >90 >=90 mL/min/1.7 3 m2 02/03/2024 1:45 AM [facility] Blood BLOOD SPECIMEN / Unknown Venipuncture / Unknown 02/03/2024 1:03 AM CDT 02/03/2024 1:17 AM CDT Kaylee Reyes MD LAB - CHEMISTRY ORDERABLES Fi nal Result [facility] [address] [place] [address], [facility] [phone] from Last 3 Months or Most Recently Relevant to Health Maintenance Insurance [phone] (Work) [address] [place] [id number] MEDICAID [place] SELF PAY NO INSURANCE Member Subscriber Plan / Payer (Ef fective for All Dates) Name:Tita Luke Member ID:Not on file Relation to Subscriber:Not on file Name:TITA LUKE Subscriber ID:Not on file (Home) Address: [address] [place] [id number] Payer ID:Not on file Group ID:Not on file Type:Self Pay Address: [facility] Care Teams Transformation Consultant Relationship Specialty Start Date End Date Damian Sadler MD PCP - General Internal Medicine 07/04/16
--- OUTSIDE RECORDS SUMMARY | 2025-01-10 18:05 | XMS_ITS | CONTINUITY OF CARE DOCUMENT ---
Author Name [email or web address] Address Unknown Organization [facility] Address [address] [facility] [address] [place] [address] Phone [phone] Care Team Providers Care Acquisitions Analyst Name Role Phone William CURIEL, Herlinda Unavailable [phone] SHAWNEE CURIEL, NABIL Schmidt Unavailable INSURANCE PROVIDERS Payer name Policy type / Coverage type Bj red republican ID [employer] MED[employer] Medicaid [id number] [facility] [id number]
== END 2025-01-10 15:02 | disposition home or self-care (01) ==
PROVIDERS: Emergency Provider Emergency Medicine; PCP Internal Medicine
DX: R10.32 Left lower quadrant pain (principal); I10 Essential (primary) hypertension; K21.9 Gastro-esophageal reflux disease without esophagitis; G47.53 Recurrent isolated sleep paralysis; F32.A Depression, unspecified; E66.9 Obesity, unspecified; Z68.33 Body mass index [BMI] 33.0-33.9, adult; Z87.442 Personal history of urinary calculi; Z90.49 Acquired absence of other specified parts of digestive tract; Z90.710 Acquired absence of both cervix and uterus
CPT/HCPCS: 36415; 74176; 80053; 81003; 83690; 85025; 96361; 96374; 96375; 99284; A9270; J1171; J2405; J7030

== ENCOUNTER 2025-01-19 03:03 | Emergency (ER) | payer OTHER, SELFPAY ==
--- NOTE | ~2025-01-19 | CT_ITS ---
Non-contrast CT scan of the Abdomen and Pelvis Clinical indication: Left flank pain Technique: 2.5 mm axial scans were obtained through the abdomen and pelvis without intravenous or or al contrast. Dose reduction technique was used on this scan by utilizing automated exposure control a nd iterative reconstruction technique. The dose-length product (DLP) was 715.54 mGy-cm. COMPARISON: 01/10/2025 Findings: Images through the lung bases reveal no abnormalities. There is no evidence of renal or ureteral calculi. The kidneys and the ureters are nondilated. There is diffuse hepatic steatosis. Cholecystectomy clips are present. The spleen, pancreas, and adre nals appear normal. There is no aortic aneurysm. There is no evidence of bowel obstruction. Images through the pelvis were performed. There is no evidence of ascites or lymphadenopathy. Urinary bladder unremarkable. Status post hysterectomy. Suspected 3.3 cm left ovarian cyst.. Impression: Suspected 3.3 cm left ovarian cyst. Consider pelvic ultrasound as indicated. No renal, ureteral, or bladder stone. No hydronephrosis. Diffuse hepatic steatosis. Reviewed, dictated and finalized at [facility]. Impression: Suspected 3.3 cm left ovarian cyst. Consider pelvic ultrasound as indicated. No renal, ureteral, or bladder stone. No hydronephrosis. Diffuse hepatic steatosis.
--- OUTSIDE RECORDS SUMMARY | 2025-01-19 03:05 | XMS_ITS | CONTINUITY OF CARE DOCUMENT ---
Author Name [email or web address] Address Unknown Organization [facility] Address [address] [place] [address] Phone [phone] Care Team Providers Care Securities Trader Name Role Phone William CURIEL, Herlinda Unavailable [phone] SH[place]NEE CURIEL, NABIL Schmidt Unavailable [phone] INSURANCE PROVIDERS Payer name Policy type / Coverage type Bj red alliance party ID [place] MED[place] Medicaid [id number] [facility] [id number]
--- OUTSIDE RECORDS SUMMARY | 2025-01-19 03:06 | XMS_ITS | Clinical Summary ---
Author Organization [facility] Address [address] [place] [address] Phone Care Team Providers Care Entry Level Software Engineer Name Role Phone Damian Diamond MD Primary Care Provider [phone] Allergies Active Allergy Reactions Criticality Noted Date Comments Hydralazine Vomiting High 11/13/2024 Ketorolac Tromethamine Swelling,Vomiting ,Ot her (see Comments) High 11/13/2024 Headache, tongue swells Tramadol Swelling,Vomiting High 11/13/2024 Swelling of tongue, vomitung Medications losartan (COZAAR) 50 MG Tablet Take 50 mg by mouth 2 times daily. Active hydroCHLOROthiaz sandeep 25 MG Tablet Take 25 mg by mouth daily. Active amLODIPine (NORVASC) 10 MG Tablet Take 10 mg by mouth 2 times daily. Active nebivolol (Bystolic) 5 MG Tablet Take by mouth 2 times daily. Active predniSONE (DELTASONE) 20 MG Tablet Take 1 Tablet by mouth daily for 10 days. 10 Tablet 5 01/24/20 25 Active pregabalin (LYRICA) 150 MG Capsule Take 150 mg by mouth 2 times daily. 5 01/14/20 25 Discontinu ed(Med List Clean Up) ondansetron (ZOFRAN-ODT) 4 MG TABLET DISPERSIBLE DISSOLVE 1 TABLET ON TONGUE EVERY 6 HOURS NEEDED FOR NAUSEA AND VOMITING 5 01/14/20 25 Discontinu ed(Med List Clean Up) naproxen (NAPROSYN) 500 MG Tablet TAKE 1 TABLET BY MOUTH EVERY 12 HOURS WITH FOOD NEEDED FOR PAIN 5 01/14/20 25 Discontinu ed(Med List Clean Up) acetaminophen Extra Strength (TYLENOL) 500 MG Tablet TAKE 2 TABLETS (1000 MG) BY MOUTH THREE TIMES A DAY NEEDED FOR PAIN FOR 7 DAYS 5 01/14/20 25 Discontinu ed(Med List Clean Up) Encounters Date Type Department Care Team Description 01/13/2025 12:30 PM CDT Office Visit [facility] [address] [place] [address] Damian Diamond MD Physical exam, annual (Adult) (Primary Dx); Encounter for screening mammogram for breast cancer Discharge Disposition: Discharged to home or Selfcare 01/11/2025 Travel 12/30/2024 Telephone [facility] [address] [place] [address] Damian Diamond MD 11/13/2024 Travel 11/13/2024 Telephone [facility] [address] [place] [address] Carlyle Calderon MD 11/12/2024 Telephone [facility] [address] [place] [address] Carlyle Calderon MD from Last 3 Months [...] Tobacco: Never Tobacco Cessation:Ready to Q uit: No; Counseling Given: No Alcohol Use Standard Drinks/Week Comments Not Currently 0 (1 standard drink = 0.6 oz pur e alcohol) [facility] Utilities Answer Date Recorded In the past 12 months has e electric, gas, oil, or water company threatened to shut off services in your home? No 01/11/2025 Social Connection and Isolation Panel Answer Date Recorded In a typical week, how many times do you talk on the phone with family, friends, or neighbors? Three times a week 01/11/2025 How often do you get togethe r with friends or relatives? Once a week 01/11/2025 How often do you attend chur ch or yarsanism services? Never 01/11/2025 Do you belong to any clubs o r organizations such as mosque groups, unions, fraternal or athletic groups, or school groups? No 01/11/2025 How often do you attend meet ings of the clubs or organizations you belong to? Never 01/11/2025 Are you , , di vorced, , never , or living with a partner? 01/11/2025 AUDIT-C Answer Date Recorded Q1: How often do you have a drink containing alcohol? Never 01/11/2025 Q2: How many drinks containi ng alcohol do you have on a typical day when you are drinking? Patient does not drink Q3: How often do you have si x or more drinks on one occasion? Never 01/11/2025 Overall Financial Resource Strain (CARDIA) Answe r Date Recorded How hard is it for you to pa y for the very basics like food, housing, medical care, and heating? Somewhat hard 01/11/2025 [facility] - Occupational Stress Questionnaire Answer Date Recorded Do you feel stress - tense, restless, nervous, or anxious, or unable to sleep at night because your mind is troubled all the time - these days? To some extent 01/11/2025 Exercise Vital Sign Answer Date Recorde d On average, how many days pe r week do you engage in moderate to strenuous exercise (like a brisk walk)? 0 days 01/11/2025 On average, how many minutes do you engage in exercise at this level? 0 min 01/11/2025 Hunger Vital Sign Answer Date Recorded Within the past 12 months, y ou worried that your food would run out before you got the money to buy more. Never true 01/12/20 Within the past 12 months, t he food you bought just didn't last and you didn't have money to get more. Never true 01/11/2025 PRAPARE - Transportation Answer Date Re corded In the past 12 months, has l ack of transportation kept you from medical appointments or from getting medications? No 09/2024 In the past 12 months, has l ack of transportation kept you from meetings, work, or from getting things needed for daily living? No 01/11/2025 Housing Stability Vital Sign Answer Jordan e Recorded In the last 12 months, was t here a time when you were not able to pay the mortgage or rent on time? Yes 01/11/2025 In the past 12 months, how m any times have you moved where you were living? 1 01/11/2025 At any time in the past 12 m [facility], were you homeless or living in a nursing home (including now)? No 01/11/2025 Sexually Active Control Partners Comments Not Currently Male Comments Unknown Sex and Gender Information Value Date Recorded Sex Assigned at Female 01/08/2025 1:59 AM CDT Legal Sex Female 3:04 PM CDT Gender Identity Female 01/08/2025 1:59 AM CDT Sexual Orientation Straight 01/08/2025 1: 59 AM CDT Last Filed Vital Signs Vital Sign Reading Time Taken Comments Blood Pressure 162/80 01/13/2025 12:55 PM CDT Pulse 82 01/13/2025 12:20 PM CDT Temperature 36.1 C (97 F) 01/13/2025 12:20 PM CDT Respiratory Rate 16 01/13/2025 12:20 PM CDT Oxygen Saturation 97% 01/13/2025 12:20 PM CDT Inhaled Oxygen Concentration - - Weight 86.4 kg (190 lb 6.4 oz) 01/13/2025 12:20 PM CDT Height 160 cm (5' 3) 01/13/2025 12:20 PM CDT Body Mass Index 33.73 01/13/2025 12:20 PM CDT Plan of Treatment Upcoming Encounters Date Type Department Care Team (Late st Contact Info) Description 01/19/2025 10:45 AM CDT Appointment [facility] [address] [facility] [place] [address] Damian Diamond MD [address] [place] [address] [address] [address] Health Maintenance Due Date Last Done Comments Mammogram 1979 TdaP Immunization 1979 Human Papillomavirus (HPV) Immunization (1 - 3-dose series) 1994 Hepatitis B Immunization (1 of 3 - 19+ 3-dose series) 1998 Pneumococcal Immunization Combined (1 of 2 - PCV) 1998 Discussion re Starting/Frequency of Mammograms 2019 Cologuard 02/26/2024 Colonoscopy 02/26/2024 Colorectal Cancer Screening 02/26/2024 Immunochemical Fecal Occult Blood 02/26/2024 SARS-COV-2 Immunization ( - season) 2024 Influenza Immunization (Seas on Ended) 2025 06/24/2015, 05/12/2015 Respiratory Syncytial Virus (RSV) Immunization (Adult) (1 - 1-dose 75+ series) 2054 Hepatitis C Virus (HCV) Screening Completed 02/20/2024 Meningococcal Immunization (ACWY) Aged Out No longer eligible b ased on patient's age to complete this topic Rotavirus Immunization Aged Out No lo nger eligible based on patient's age to complete this topic Insurance MEDICAID [place] Care Teams Entry Level Software Engineer Relationship Specialty Start Date End Date Damian Diamond MD [address] [address] PCP - General Family Medicine 01/13/25
--- OUTSIDE RECORDS SUMMARY | 2025-01-19 03:06 | XMS_ITS | Referral Summary ---
Author Organization [facility] Address [address] [place] [address] Care Team Providers Care Service Crew Supervisor Name Role Phone Lucas Carter DO Primary Care Provider [phone] Encounters Date Type Department Care Team Description 10/31/2024 4:48 PM CDT - 10/31/2024 10:51 PM CDT Emergency [facility] [address] [place] [address] [...] capsule (20 mg total) by mouth early interventionist before breakfast Active MULTIVIT-MINERALS/ FERROUS FUM (MULTI VITAMIN ORAL)Indications:h ealth Take 1 tablet by mouth early interventionist before breakfast Active ondansetron ODT (ZOFRAN-ODT) 4 [...] tablet (25 mg total) by mouth early interventionist before breakfast Active nebivoloL (BYSTOLIC) 10 mg [...] on file Legal Sex Female 9:06 PM ANGIO TECHNOLOGIST Gender Identity Female 10/01/2023 8:44 AM ANGIO TECHNOLOGIST Sexual Orientation Straight 10/01/2023 8: 44 AM ANGIO TECHNOLOGIST Last Filed Vital Signs Vital Sign Reading [...] 160 cm (5' 3) 06/29/2024 7:50 AM ANGIO TECHNOLOGIST Body Mass Index 32.57 06/29/2024 7:50 AM ANGIO TECHNOLOGIST Plan of Treatment Not on file Goals [...] on stairs Contact your local community or [facility] for information on exercise, fall prevention programs, or options for improving home safety. Medical Devices Implanted Type Area Rejogger Device Identifier Shelf Expiration Date Model / [...] and agrees with it. Electronically signed by: Miek Olmstead MD, PHD Minda Gurrola MD IMG [...] esult [facility] [place] [address] * (ABNORMAL) Differential, auto (10/31/2024 5:42 PM CDT) Neutrophil abs 5.6 1.5 - 6.5 K/cumm Imm gran abs 0.0 0.0 - 0.1 K/cumm [facility] Lymphocyte abs 2.3 0.8 - 3.3 K/cumm [facility] Monocyte abs 0.9(H) 0.2 - 0.8 K/cumm [facility] Eosinophil abs 0.1 0.0 - 0.5 K/cumm [facility] Basophil abs 0.1 0.0 - 0.1 K/cumm [facility] Neutrophil pct 62.4 % [facility] [...] ORDERABLES Final R esult Performing Organization Address City/State/[facility] Co de Phone Number [facility] [place] [address] * Urinalysis reflex to microscopic and culture [...] stone formation. Source: [facility] Current Interpretive Data was last revised on 2017 Protein, ur ql Negative Negative [facility] Glucose, ur ql Negative Negative [facility] Ketones, ur Negative Negative [facility] Bilirubin, ur Negative Negative [facility] Blood, ur Negative Negative [facility] Urobilinogen, ur <2.0 <2.0 mg/dL [facility] Nitrite, ur Negative Negative [facility] Leukocyte esterase, ur Negative Negative [facility] UA reflex comment Reflex conditions for microscopic UA and culture not met. [facility] Urine 10/31/2024 5:42 PM CDT 10/31/2024 5:49 PM CDT Minda Gurrola MD LAB MICROBIOLOGY - GENER AL ORDERABLES Final Result Performing Organization Address City/[facility] Co de Phone Number [facility] Department [place] [address] * (ABNORMAL) CBC with auto differential (10/31/2024 [...] Garcia MD LAB BLOOD ORDERABLES Final Result [facility] [place] [address] * Lipase (10/31/2024 5:42 PM CDT) Pathologist [facility] Lipase 41 10 - 99 Units/L Blood Venous blood specimen / Unknown 10/31/2024 5:42 PM CDT 10/31/2024 5:51 PM CDT Yanni Garcia MD LAB BLOOD ORDERABLES Final Result [facility] [place] [address] * (ABNORMAL) Comprehensive metabolic panel (10/31/2024 5:42 PM CDT) Sodium 142 135 - 145 mmol/L Potassium, pl 4.2 3.3 - 4.9 mmol/L [facility] Chloride 105 97 - 110 mmol/L [facility] CO2 24 22 - 32 mmol/L [facility] Anion gap 13 2 - 15 mmol/L [facility] BUN 9 6 - 25 mg/dL [facility] Creatinine 0.65 0.60 - 1.10 mg/dL [facility] Glucose 84 70 - 199 mg/dL [...] 10.3 8.5 - 10.3 mg/dL [facility] Bilirubin, total 0.3 0.1 - 1.2 mg/dL [facility] Protein, pl 8.3 6.5 - 8.5 g/dL [facility] Albumin 4.7 3.5 - 5.0 g/dL [facility] Alk phos 105 40 - 130 Units/L [facility] ALT 68(H) 7 - 45 Units/L [facility] AST 48(H) 10 - 45 Units/L [facility] Blood Venous blood specimen / Unknown 10/31/2024 5:42 PM CDT 10/31/2024 5:51 PM CDT Yanni Garcia MD LAB BLOOD ORDERABLES Final Result [facility] [place] [address] * ECG 12-LEAD (10/31/2024 4:30 PM CDT) [...] in the ED Yanni Garcia MD 10/31/24 5553 us Yanni Garcia MD ECG ORDERABLES Final Resul t [facility] from Last 3 Months Insurance [facility] CHO[facility] PLUS [facility] IDPA IDPA Advance Directives For more information, please contact: [phone] * Full Code (Latest Code Status on File) Date Activated Date Inactivated Comments 08/15/2022 3:10 PM 08/18/2022 6:09 PM Care Teams Service Crew Supervisor Relationship Specialty Start Date End Date Lucas Carter DO PCP - General Internal Medicine 08/15/22
--- OUTSIDE RECORDS SUMMARY | 2025-01-19 03:06 | XMS_ITS | Clinical Summary ---
Author Organization [facility] Address [address] [place] [address] Care Team Providers Care Weight Engineer Name Role Phone Damian Sadler MD Primary Care Provider [phone] Source Comments [facility],non-owned Affiliates and Associated Physician Practices is amultiple site organization consisting of ambulatory clinics and hospital sitesin [place], [place], [place] and [place]. This disclosure is being madepursuant to the Care Everywhere program and may not contain all information available regarding this patient. Last updated 18.[facility] Allergies Active Allergy Reactions Criticality Noted Date [...] on file Legal Sex Female 11:41 AM CONTINUOUS IMPROVEMENT ENGINEER Gender Identity Not on file Sexual Orientation [...] Last Done Comments COLOGUARD (AGES 45-75) - COLON CA SCREENING 1979 COLON MONITORING 1979 COLONOSCOPY [...] - PCV) 1998 COVID-19 VACCINE (1 - 2023- season) 2024 DEPRESSION SCREENING 08/12/2024 INFLUENZA VACCINE (Season Ended) 2025 06/24/2015, 05/12/2015 SCREENING FOR DIABETES 02/02/2027 , 12/24/2022, 12/24/2022, Additional history exists ZOSTER VACCINE (1 of 2) 2029 HEPATITIS [...] A/C/Y/W VACCINE Aged Out No longer eligible based on [...] Agency Comment Lab Testing performed at: [facility] [address] [facility] [phone] us Nancy Cotto MD LAB - CHEMISTRY ORDERABLES Final Result [facility] INSURANCE BILL [address] [place] [address] * (ABNORMAL) COMPREHENSIVE METABOLIC PANEL (02/03/2024 1:03 AM [facility]) BUN 9 7 - 26 mg/dL 02/03/2024 1:45 AM [facility] Creatinine 0.64 0.56 - 0.96 mg/dL 02/03/2024 1:45 AM [facility] Sodium 139 136 - 145 mmol/L 02/03/2024 1:45 AM [facility] Potassium 3.4(L) 3.5 - 4.5 mmol/L 02/03/2024 1:45 AM [facility] Chloride 107 98 - 107 mmol/L 02/03/2024 1:45 AM [facility] CO2 21(L) 22 - 29 mmol/L 02/03/2024 1:45 AM [facility] Glucose 78 70 - 115 mg/dL 02/03/2024 1:45 AM [facility] Calcium 9.9 8.4 - 10.2 mg/dL 02/03/2024 1:45 AM [facility] Protein Total 7.7 6.0 - [...] 11 6 - 16 02/03/2024 1:45 AM CDT [facility] BUN/Creatinine Ratio 14 7 - 23 02/03/2024 1:45 AM CDT [facility] Osmolality Calculated 286 275 - 295 mOsm/kg 02/03/2024 1:45 AM [facility] Albumin/Globulin Ratio 1.3 1.1 - 2.3 02/03/2024 1:45 AM T [facility] eGFR by CKD-EPI >90 >=90 mL/min/1.7 3 m2 02/03/2024 1:45 AM T [facility] Blood BLOOD SPECIMEN / Unknown Venipuncture / Unknown 02/03/2024 1:03 AM CDT 02/03/2024 1:17 AM CDT Kaylee Reyes MD LAB - CHEMISTRY ORDERABLES Fi nal Result Performing Organization Address City/State/[facility] Co de Phone Number [facility] [address] [place] [address], [facility] [phone] from Last 3 Months or Most Recently Relevant to Health Maintenance Insurance [phone] (Work) [address] [place] [phone] MEDICAID - [place] SELF PAY NO INSURANCE Member Subscriber Plan / Payer (Ef fective for All Dates) Name:Tita Luke Member ID:Not on file Relation to Subscriber:Not on file Name:TITA LUKE Subscriber ID:Not on file (Home) Address: [address] [place] [id number] Payer ID:Not on file Group ID:Not on file Type:Self Pay Address: [facility] [id number] [place] [address] Care Teams Weight Engineer Relationship Specialty Start Date End Date Damian Sadler MD PCP - General Internal Medicine 07/04/16
--- OUTSIDE RECORDS SUMMARY | 2025-01-19 03:06 | XMS_ITS | Clinical Summary ---
Author Organization [facility] al Address [address] [place] [address] Care Team Providers Care Manager It Security Name Role Phone Lucas Carter DO Primary Care Provider [phone] Allergies Active Allergy Reactions Criticality Noted Date Comments Hydralazine Headache,Vomiting Low 01/21/2024 Ketorolac Hives,Itching Medium 10/17/2017 Tramadol Hives,Urticaria Medium 08/27/2016 Medications omeprazole (PriLOSEC) 20 mg capsuleIndications :Treatment of Non-Bleeding Gastric Disorder Take 1 capsule (20 mg total) by mouth hollow handle knife assembler before breakfast Active MULTIVIT-MINERALS/ FERROUS FUM (MULTI VITAMIN ORAL)Indications:h ealth Take 1 tablet by mouth hollow handle knife assembler before breakfast Active ondansetron ODT (ZOFRAN-ODT) [...] 1 tablet (25 mg total) by mouth hollow handle knife assembler before breakfast Active nebivoloL (BYSTOLIC) 10 [...] CDT - 10/31/2024 10:51 PM CDT Emergency [facility] Emergency Department 1 [place] [address] Yanni Garcia MD Flank pain (Primary Dx) [...] Grandfather Beka Sr. Hearing loss Maternal Grandmother [place] Alcohol abuse Mother Melodye Arthritis Mother Melodye COPD Mother Melodye Depression Mother Melodye Hearing loss Mother Melodye Obesity Mother Melodye Stroke Paternal Grandfather Dusty Obesity Sister Sarai Relation Name Status Comments Brother Dusty Father Israel Maternal Grandfather Beka Sr. Maternal Grandmother [place] Mother Lisae Paternal Grandfather Dusty Sister Sarai [...] on file Legal Sex Female 9:06 PM SPECK DYER Gender Identity Female 10/01/2023 8:44 AM SPECK DYER Sexual Orientation Straight 10/01/2023 8: 44 AM SPECK DYER Obstetrics History Para Term AB IAB SAB [...] 160 cm (5' 3) 06/29/2024 7:50 AM SPECK DYER Body Mass Index 32.57 06/29/2024 7:50 AM SPECK DYER Plan of Treatment Health Maintenance Due Date [...] home safety. Medical Devices Implanted Type Area Title One Reading Teacher Device Identifier Shelf Expiration Date Model / [...] Acceptable Urine 10/31/2024 6:32 PM CDT Result [facility] Yanni Garcia MD POINT OF [...] LAB BLOOD ORDERABLES Final R esult [facility] Department [place] [address] * (ABNORMAL) Differential, auto (10/31/2024 5:42 PM CDT) Neutrophil abs 5.6 1.5 - 6.5 K/cumm Imm gran abs 0.0 0.0 - 0.1 K/cumm [facility] Lymphocyte abs 2.3 0.8 - 3.3 K/cumm [facility] Monocyte abs 0.9(H) 0.2 - 0.8 K/cumm [facility] Eosinophil abs 0.1 0.0 - 0.5 K/cumm [facility] Basophil abs 0.1 0.0 - 0.1 K/cumm [facility] Neutrophil pct 62.4 % [facility] Comment: Interpretive Data Percent cell count reference ranges are not reported, since discordance with absolute values may lead to misinterpretation of CBC data. Current Interpretive Data was last revised on 2017. Imm gran pct 0.3 % [facility] Comment: Interpretive Data Percent cell count reference ranges are not reported, since discordance with absolute values may lead to misinterpretation of CBC data. Current Interpretive Data was last revised on 2017. Lymphocyte pct 25.2 % [facility] Comment: Interpretive Data Percent cell count reference ranges are not reported, since discordance with absolute values may lead to misinterpretation of CBC data. Current Interpretive Data was last revised on 2017. Monocyte pct 10.0 % [facility] Comment: Interpretive Data Percent cell count reference ranges are not reported, since discordance with absolute values may lead to misinterpretation of CBC data. Current Interpretive Data was last revised on 2017. Eosinophil pct 1.5 % [facility] Comment: Interpretive Data Percent cell count reference ranges are not reported, since discordance with absolute values may lead to misinterpretation of CBC data. Current Interpretive Data was last revised on 2017. Basophil pct 0.6 % [facility] Comment: Interpretive Data Percent cell count reference ranges are not reported, since discordance with absolute values may lead to misinterpretation of CBC data. Current Interpretive Data was last revised on 2017. Blood 10/31/2024 5:42 PM CDT 10/31/2024 5:51 PM CDT Severo Mckeon MD LAB BLOOD ORDERABLES Final R esult Performing Organization Address City/[facility]/ZIP Co de Phone Number [facility] Department [place] [address] * Urinalysis reflex to microscopic and culture Urine (10/31/2024 5:42 PM CDT) Color, ur Straw Yellow Clarity, ur Clear Clear [facility] Specific gravity, ur 1.011 1.003 - 1.030 [facility] pH, urine 5.5 [facility] Comment: Interpretive Data U rine pH is affected by diet, medications, systemic acid-base disturbances, and renal tubular function. pH may affect urinary stone formation. For example, urine pH below 6.0 may help reduce the tendency for calcium phosphate stones and pH greater than 6.0 may reduce the tendency for uric acid stone formation. Source: [facility] Current Interpretive Data was last revised on 2017 Protein, ur ql Negative Negative [facility] Glucose, ur ql Negative Negative [facility] Ketones, ur Negative Negative [facility] Bilirubin, ur Negative Negative [facility] Blood, ur Negative Negative [facility] Urobilinogen, ur <2.0 <2.0 mg/dL [facility] Nitrite, ur Negative Negative [facility] Leukocyte esterase, ur Negative Negative [facility] UA reflex comment Reflex conditions for microscopic UA and culture not met. [facility] Urine 10/31/2024 5:42 PM CDT 10/31/2024 5:49 PM CDT Minda Gurrola MD LAB MICROBIOLOGY - GENER AL ORDERABLES Final Result [facility] Department [place] [address] * (ABNORMAL) CBC with auto differential (10/31/2024 5:42 PM CDT) [facility] WBC 8.9 3.8 - 9.9 K/cumm Hgb 16.1(H) 11.9 - 15.5 g/dL [facility] Hct 45.8(H) 35.6 - 45.5 % [facility] Plt 319 150 - 400 K/cumm [facility] MPV 9.2 9.1 - 12.3 fL [facility] RBC 5.35(H) 3.90 - 5.20 M/cumm [facility] MCV 85.6 81.3 - 96.4 fL [facility] MCH 30.1 27.1 - 33.3 pg [facility] MCHC 35.2 32.3 - 35.7 g/dL [facility] RDW CV 12.5 11.1 - 14.9 % [facility] RDW SD 38.8 35.7 - 48.1 fL [facility] NRBC abs 0.00 0.00 - 0.01 K/cumm [facility] Blood Venous blood specimen / Unknown 10/31/2024 5:42 PM CDT 10/31/2024 5:51 PM CDT us Yanni Garcia MD LAB BLOOD ORDERABLES Final Result Performing Organization Address City/[facility]/ZIP Co de Phone Number [facility] [place] [address] * Lipase (10/31/2024 5:42 PM CDT) [facility] Lipase 41 10 - 99 Units/L Blood Venous blood specimen / Unknown 10/31/2024 5:42 PM CDT 10/31/2024 5:51 PM CDT Yanni Garcia MD LAB BLOOD ORDERABLES Final Result [facility] [place] [address] * (ABNORMAL) Comprehensive metabolic panel (10/31/2024 5:42 PM CDT) Sodium 142 135 - 145 mmol/L Potassium, pl 4.2 3.3 - 4.9 mmol/L [facility] Chloride 105 97 - 110 mmol/L [facility] CO2 24 22 - 32 mmol/L [facility] Anion gap 13 2 - 15 mmol/L [facility] BUN 9 6 - 25 mg/dL [facility] Creatinine 0.65 0.60 - 1.10 mg/dL [facility] Glucose 84 70 - 199 mg/dL [facility] [...] Calcium 10.3 8.5 - 10.3 mg/dL [facility] Bilirubin, total 0.3 0.1 - 1.2 mg/dL [facility] Protein, pl 8.3 6.5 - 8.5 g/dL [facility] Albumin 4.7 3.5 - 5.0 g/dL [facility] Alk phos 105 40 - 130 Units/L [facility] ALT 68(H) 7 - 45 Units/L [facility] AST 48(H) 10 - 45 Units/L [facility] Blood Venous blood specimen / Unknown 10/31/2024 5:42 PM CDT 10/31/2024 5:51 PM CDT us Yanni Garcia MD LAB BLOOD ORDERABLES Final Result [facility] Department [place] [address] * ECG 12-LEAD (10/31/2024 4:30 PM CDT) Narrative [facility] - 10/31/2024 4:30 PM CDT Yanni Garcia [...] in the ED Yanni Garcia MD 10/31/24 9569 us Yanni Garcia MD ECG ORDERABLES Final Resul t [facility] from Last 3 Months Insurance IDMD [facility] PLUS [facility] HMO/PPO Address: [address] [address] [place], [place] [address] [place] [address] IDPA IDPA Advance Directives For more information, please contact: [phone] * Full Code (Latest Code Status on File) Date Activated Date Inactivated Comments 08/15/2022 3:10 PM 08/18/2022 6:09 PM Care Teams Manager It Security Relationship Specialty Start Date End Date Lucas Carter DO PCP - General Internal Medicine 08/15/22
[2025-01-19 03:14] VITALS: BP 181/150; PULSE 106; RESP 18; TEMP 36.4; O2SAT 96
[2025-01-19 03:23] LABS: Basophils Absolute Auto 0.1 K/mm3 (0.0-0.1); Basophils Percent Auto 0.5 % (0.2-1.2); Eosinophils Absolute Auto 0.1 K/mm3 (0-0.3); Eosinophils Percent Auto 1.3 % (0-4.4); Hematocrit 45.1 % (37.0-47.0); Hemoglobin 15.4 g/dL (12.0-15.0); Immature Granulocyte Absolute 0.02 K/mm3 (0.00-0.031); Immature Granulocyte Percent A 0.2 % (0-0.5); Lymphocytes Absolute Auto 3.07 K/mm3 (0.9-3.2); Lymphocytes Percent Auto 29.8 % (18.3-44.2); Mean Corpuscular HGB Conc 34.1 g/dl (32-36); Mean Corpuscular Hemoglobin 30.5 pg (26-34); Mean Corpuscular Volume 89.3 fl (80-100); Mean Platelet Volume 9.4 fl (7.4-10.4); Monocytes Absolute Auto 0.9 K/mm3 (0.1-0.6); Monocytes Percent Auto 8.8 % (2.6-8.5); Neutrophils Absolute Auto 6.1 K/mm3 (1.3-6.7); Neutrophils Percent Auto 59.4 % (45.5-73.1); Platelet Count Result 242 k/mm3 (150-375); Red Blood Count 5.05 M/mm3 (4.2-5.4); Red Cell Distribution Width 13.1 % (11.5-14.5); White Blood Count 10.3 K/mm3 (4.5-10.0)
[2025-01-19 03:36] LABS: Add Urine Microscopic? NO; Appearance Urine Clear (Clear); Bilirubin Urine Negative (Negative); Blood Urine Negative (Negative); Color Urine Yellow (Yellow); Glucose Urine UA Negative (Negative); Ketones Urine Negative (Negative); Leukocyte Esterase Ur Negative LEU/UL (Negative); Nitrate Urine Negative (Negative); Protein Urine Negative (Negative); Specific Grav Ur 1.005 (1.001-1.035); Urobilinogen Urine 0.2 mg/dL (<2.0)
--- OUTSIDE RECORDS SUMMARY | 2025-01-19 03:36 | XMS_ITS | Clinical Summary ---
Author Organization [facility] [employer] Address [address] [place] [address] Care Team Providers Care Chimney Supervisor Brick Name Role Phone Damian Sadler MD Primary Care Provider [phone] Source Comments [facility] [employer],non-owned Affiliates and Associated Physician Practices is amultiple site organization consisting of ambulatory clinics and hospital sitesin [place], [place], [place] and [place]. This disclosure is being madepursuant to the Care Everywhere program and may not contain all information available regarding this patient. 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 BUN/Creatinine Ratio 14 7 - 23 02/03/2024 1:[address] [facility] Osmolality Calculated 286 275 - 295 mOsm/kg 02/03/2024 1:45 AM [facility] Albumin/Globulin Ratio 1.3 1.1 - 2.3 02/03/2024 1:[address] [facility] eGFR by CKD-EPI >90 >=90 mL/min/1.7 3 m2 02/03/2024 1:[address] [facility] Blood BLOOD SPECIMEN / Unknown Venipuncture / Unknown 02/03/2024 1:03 AM CDT 02/03/2024 1:17 AM CDT Kaylee Reyes MD LAB - CHEMISTRY ORDERABLES Fi nal Result Performing Organization Address City/State/[facility] Co de Phone Number [facility] [address] [place] [address], [facility] [phone] from Last 3 Months or Most Recently Relevant to Health Maintenance Insurance [phone] (Work) [address] [place] [id number] MEDICAID [place] SELF PAY NO INSURANCE Member Subscriber Plan / Payer (Ef fective for All Dates) Name:Tita Luke Member ID:Not on file Relation to Subscriber:Not on file Name:TITA LUKE Subscriber ID:Not on file (Home) Address: [address] [place] [id number] Payer ID:Not on file Group ID:Not on file Type:Self Pay Address: [facility] [id number] [place] [address] Care Teams Chimney Supervisor Brick Relationship Specialty Start Date End Date Damian Sadler MD PCP - General Internal Medicine 07/04/16
--- OUTSIDE RECORDS SUMMARY | 2025-01-19 03:36 | XMS_ITS | Clinical Summary ---
Author Organization [facility] Address [address] [place] [address] Phone Care Team Providers Care Hat Brim And Crown Laminating Operator Name Role Phone Damian Diamond MD Primary Care Provider Allergies Active Allergy Reactions Criticality Noted Date [...] Description 01/13/2025 12:30 PM CDT Office Visit [facility] [address] [place] [address] Damian Diamond MD Physical exam, annual (Adult) (Primary Dx); Encounter for screening mammogram for breast cancer Discharge Disposition: Discharged to home or Selfcare 01/11/2025 Travel 12/30/2024 Telephone [facility] [address] [place] [address] Damian Diamond MD 11/13/2024 Travel 11/13/2024 Telephone [facility] [address] [place] [address] Carlyle Calderon MD 11/12/2024 Telephone [facility] [address] [place] [address] Carlyle Calderon MD from Last 3 Months [...] drink = 0.6 oz pur e alcohol) [facility] Utilities Answer Date Recorded In the [...] often do you attend chur ch or confucianism services? Never 01/11/2025 Do you belong to [...] medical care, and heating? Somewhat hard 01/11/2025 [facility] [...] any time in the past 12 m [facility], were you homeless or living in a fdc (including now)? No 01/11/2025 Sexually Active Control [...] Info) Description 01/19/2025 10:45 AM CDT Appointment [facility] Mammography [address] [facility] [place] [address] Damian Diamond MD [address] [place] [address] [address] Health Maintenance Due Date Last Done Comments [...] this topic Insurance MEDICAID [employer] Care Teams Hat Brim And Crown Laminating Operator Relationship Specialty Start Date End Date Damian Diamond MD [id number] [address] PCP - General Family Medicine 01/13/25
--- OUTSIDE RECORDS SUMMARY | 2025-01-19 03:36 | XMS_ITS | Clinical Summary ---
Author Organization [facility] al Address [address] [place] [address] Care Team Providers Care Land Acquisition Analyst Name Role Phone Lucas Carter DO Primary Care Provider [phone] Allergies Active Allergy Reactions Criticality Noted Date Comments Hydralazine Headache,Vomiting Low 01/21/2024 Ketorolac Hives,Itching Medium 10/17/2017 Tramadol Hives,Urticaria Medium 08/27/2016 Medications omeprazole (PriLOSEC) 20 mg capsuleIndications :Treatment of Non-Bleeding Gastric Disorder Take 1 capsule (20 mg total) by mouth certified scrub tech before breakfast Active MULTIVIT-MINERALS/ FERROUS FUM (MULTI VITAMIN ORAL)Indications:h ealth Take 1 tablet by mouth certified scrub tech before breakfast Active ondansetron ODT (ZOFRAN-ODT) 4 [...] 1 tablet (25 mg total) by mouth certified scrub tech before breakfast Active nebivoloL (BYSTOLIC) 10 mg [...] - 10/31/2024 10:51 PM CDT Emergency [facility] Emergency Department [address] [place] [address] Yanni Garcia MD Flank pain (Primary Dx) [...] Grandfather Beka Sr. Hearing loss Maternal Grandmother [place] Alcohol abuse Mother Melodye Arthritis Mother Melodye COPD Mother Melodye Depression Mother Melodye Hearing loss Mother Melodye Obesity Mother Melodye Stroke Paternal Grandfather Dusty Obesity Sister Sarai Relation Name Status Comments Brother Dusty Father Israel Maternal Grandfather Beka Sr. 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 Medical Devices Implanted Type Area Portable Track Crew Chief Device Identifier Shelf Expiration Date Model / [...] Acceptable Urine 10/31/2024 6:32 PM CDT Result [facility] Yanni Garcia MD POINT OF CARE [...] LAB BLOOD ORDERABLES Final R esult [facility] One [facility] Department [place] [address] * (ABNORMAL) Differential, auto (10/31/2024 5:42 PM CDT) Neutrophil abs 5.6 1.5 - 6.5 K/cumm Imm gran abs 0.0 0.0 - 0.1 K/cumm [facility] Lymphocyte abs 2.3 0.8 - 3.3 K/cumm [facility] Monocyte abs 0.9(H) 0.2 - 0.8 K/cumm [facility] Eosinophil abs 0.1 0.0 - 0.5 K/cumm [facility] Basophil abs 0.1 0.0 - 0.1 K/cumm [facility] Neutrophil pct 62.4 % [facility] [...] on 2017. Lymphocyte pct 25.2 % [facility] Comment: Interpretive Data [...] revised on 2017. Basophil pct 0.6 % [facility] Comment: Interpretive Data Percent cell count reference ranges are not reported, since discordance with absolute values may lead to misinterpretation of CBC data. Current Interpretive Data was last revised on 2017. Blood 10/31/2024 5:42 PM CDT 10/31/2024 5:51 PM CDT Severo Mckeon MD LAB BLOOD ORDERABLES Final R esult Performing Organization Address City/[facility]/ZIP Co de Phone Number [facility] Department [place] [address] * Urinalysis reflex to microscopic and culture [...] formation. Source: [facility] Current Interpretive Data was last revised on 2017 Protein, ur ql Negative Negative [facility] Glucose, ur ql Negative Negative [facility] Ketones, ur Negative Negative [facility] Bilirubin, ur Negative Negative [facility] Blood, ur Negative Negative [facility] Urobilinogen, ur <2.0 <2.0 mg/dL [facility] Nitrite, ur Negative Negative [facility] Leukocyte esterase, ur Negative Negative [facility] UA reflex comment Reflex conditions for microscopic UA and culture not met. [facility] Urine 10/31/2024 5:42 PM CDT 10/31/2024 5:49 PM CDT Minda Gurrola MD LAB MICROBIOLOGY - GENER AL ORDERABLES Final Result [facility] Department [place] [address] * (ABNORMAL) CBC with auto differential (10/31/2024 5:42 PM CDT) [facility] WBC 8.9 3.8 - 9.9 K/cumm [...] BLOOD ORDERABLES Final Result Performing Organization Address City/[facility]/ZIP Co de Phone Number [facility] Department [place] [address] * Lipase (10/31/2024 5:42 PM CDT) [facility] Lipase 41 10 - 99 Units/L Blood Venous blood specimen / Unknown 10/31/2024 5:42 PM CDT 10/31/2024 5:51 PM CDT Yanni Garcia MD LAB BLOOD ORDERABLES Final Result [facility] Department [place] [address] * (ABNORMAL) Comprehensive metabolic panel (10/31/2024 5:42 [...] ORDERABLES Final Result [facility] One [facility] Department [place] [address] * ECG 12-LEAD (10/31/2024 4:30 PM CDT) Narrative [facility] - 10/31/2024 4:30 PM [...] in the ED Yanni Garcia MD 10/31/24 8169 us Yanni Garcia MD ECG ORDERABLES Final Resul t [facility] from Last 3 Months Insurance [employer] [facility] [place] [place] [address] [place] [address] IDPA IDPA Advance Directives For more information, please contact: [phone] * Full Code (Latest Code Status on File) Date Activated Date Inactivated Comments 08/15/2022 3:10 PM 08/18/2022 6:09 PM Care Teams Land Acquisition Analyst Relationship Specialty Start Date End Date Lucas Carter DO PCP - General Internal Medicine 08/15/22
--- OUTSIDE RECORDS SUMMARY | 2025-01-19 03:36 | XMS_ITS | Referral Summary ---
Author Organization [facility] Address [address] [place] [address] Care Team Providers Care Oyster Unloader Name Role Phone Lucas Carter DO Primary Care Provider [phone] Encounters Date Type Department Care Team Description 10/31/2024 4:48 PM CDT - 10/31/2024 10:51 PM CDT Emergency [facility] Emergency Department [address] [place] [address] Yanni Garcia MD Flank pain (Primary Dx) Discharge Disposition: Discharge to home or self care from Last 3 Months Allergies Active Allergy Reactions Criticality Noted Date Comments Hydralazine Headache,Vomiting Low 01/21/2024 Ketorolac Hives,Itching Medium 10/17/2017 Tramadol Hives,Urticaria Medium 08/27/2016 Medications omeprazole (PriLOSEC) 20 mg capsuleIndications :Treatment of Non-Bleeding Gastric Disorder Take 1 capsule (20 mg total) by mouth banquet attendant before breakfast Active MULTIVIT-MINERALS/ FERROUS FUM (MULTI VITAMIN ORAL)Indications:h ealth Take 1 tablet by mouth banquet attendant before breakfast Active ondansetron ODT (ZOFRAN-ODT) 4 [...] 1 tablet (25 mg total) by mouth banquet attendant before breakfast Active nebivoloL (BYSTOLIC) 10 mg [...] on file Legal Sex Female 9:06 PM CASHIER GAMBLING Gender Identity Female 10/01/2023 8:44 AM CASHIER GAMBLING Sexual Orientation Straight 10/01/2023 8: 44 AM CASHIER GAMBLING Last Filed Vital Signs Vital Sign Reading [...] 160 cm (5' 3) 06/29/2024 7:50 AM CASHIER GAMBLING Body Mass Index 32.57 06/29/2024 7:50 AM CASHIER GAMBLING Plan of Treatment Not on file Goals [...] on stairs Contact your local community or [facility] for information on exercise, fall prevention programs, or options for improving home safety. Medical Devices Implanted Type Area Guest Relations Officer Device Identifier Shelf Expiration Date Model / [...] MD LAB BLOOD ORDERABLES Final R esult [facility] [place] [address] * (ABNORMAL) Differential, auto (10/31/2024 5:42 PM CDT) Neutrophil abs 5.6 1.5 - 6.5 K/cumm Imm gran abs 0.0 0.0 - 0.1 K/cumm [facility] Lymphocyte abs 2.3 0.8 - 3.3 K/cumm [facility] Monocyte abs 0.9(H) 0.2 - 0.8 K/cumm [facility] Eosinophil abs 0.1 0.0 - 0.5 K/cumm [facility] Basophil abs 0.1 0.0 - 0.1 [...] revised on 2017. Basophil pct 0.6 % [facility] Comment: Interpretive Data Percent cell count reference ranges are not reported, since discordance with absolute values may lead to misinterpretation of CBC data. Current Interpretive Data was last revised on 2017. Blood 10/31/2024 5:42 PM CDT 10/31/2024 5:51 PM CDT Severo Mckeon MD LAB BLOOD ORDERABLES Final R esult Performing Organization Address City/State/[facility] Co de Phone Number [facility] [place] [address] * Urinalysis reflex to microscopic and culture [...] Negative [facility] Bilirubin, ur Negative Negative [facility] Blood, ur Negative Negative [facility] Urobilinogen, ur <2.0 <2.0 mg/dL [facility] Nitrite, ur Negative Negative [facility] Leukocyte esterase, ur Negative Negative [facility] UA reflex comment Reflex conditions for microscopic UA and culture not met. [facility] Urine 10/31/2024 5:42 PM CDT 10/31/2024 5:49 PM CDT Minda Gurrola MD LAB MICROBIOLOGY - GENER AL ORDERABLES Final Result Performing Organization Address City/[facility] Co de Phone Number [facility] [place] [address] * (ABNORMAL) CBC with auto differential (10/31/2024 5:42 PM CDT) Pathologist [facility] WBC 8.9 3.8 - 9.9 K/cumm Hgb [...] MD LAB BLOOD ORDERABLES Final Result [facility] [place] [address] * Lipase (10/31/2024 5:42 PM CDT) Pathologist [facility] Lipase 41 10 - 99 Units/L Blood Venous blood specimen / Unknown 10/31/2024 5:42 PM CDT 10/31/2024 5:51 PM CDT Yanni Garcia MD LAB BLOOD ORDERABLES Final Result [facility] [place] [address] * (ABNORMAL) Comprehensive metabolic panel (10/31/2024 5:42 PM CDT) Sodium 142 135 - 145 mmol/L Potassium, pl 4.2 3.3 - 4.9 mmol/L [facility] Chloride 105 97 - 110 mmol/L [facility] CO2 24 22 - 32 mmol/L [facility] Anion gap 13 2 - 15 mmol/L [facility] BUN 9 6 - 25 mg/dL [facility] Creatinine 0.65 0.60 - 1.10 mg/dL [facility] Glucose 84 70 - 199 mg/dL [facility] [...] Calcium 10.3 8.5 - 10.3 mg/dL [facility] Bilirubin, total 0.3 0.1 - 1.2 mg/dL [facility] Protein, pl 8.3 6.5 - 8.5 g/dL [facility] Albumin 4.7 3.5 - 5.0 g/dL [facility] Alk phos 105 40 - 130 Units/L [facility] ALT 68(H) 7 - 45 Units/L [facility] AST 48(H) 10 - 45 Units/L [facility] Blood Venous blood specimen / Unknown 10/31/2024 5:42 PM CDT 10/31/2024 5:51 PM CDT Yanni Garcia MD LAB BLOOD ORDERABLES Final Result [facility] [place] [address] * ECG 12-LEAD (10/31/2024 4:30 PM CDT) [...] in the ED Yanni Garcia MD 10/31/24 2845 us Yanni Garcia MD ECG ORDERABLES Final Resul t [facility] from Last 3 Months Insurance IDPA [facility] CHOICE PLUS [facility] HMO/PPO Address: [address] [address] [place] [address] [facility] IDPA IDPA Advance Directives For more information, please contact: [phone] * Full Code (Latest Code Status on File) Date Activated Date Inactivated Comments 08/15/2022 3:10 PM 08/18/2022 6:09 PM Care Teams Oyster Unloader Relationship Specialty Start Date End Date Lucas Carter DO PCP - General Internal Medicine 08/15/22
--- OUTSIDE RECORDS SUMMARY | 2025-01-19 03:36 | XMS_ITS | CONTINUITY OF CARE DOCUMENT ---
Author Name [email or web address] Address Unknown Organization [facility] Address [address] [place] [address] Phone [phone] Care Team Providers Care Neurology Technician Name Role Phone William CURIEL, Herlinda Unavailable SHAWNEE CURIEL, NABIL Schmidt Unavailable INSURANCE PROVIDERS Payer name Policy type / Coverage type Bj red democrat [place] [employer] Medicaid [id number] [facility] [id number]
--- NOTE | 2025-01-19 03:39 | ED_ITS ---
HPI - Abdominal Pain General Chief Complaint: Abdominal Pain Stated Complaint: kidney stones Time Seen by Provider: 01/19/25 03:08 History of Present Illness HPI narrative: Patient is a 44-year-old female who presents emergency department this evening complaining of bilateral flank pain worse on the left side. Patient states that she has a long history of kidney stones and they have been persistently bothering her since October. Patient is to followed up with Dr. Gonzalez and Dr. Alejandro but she was recently informed that they do not accept her insurance anymore so she is currently pending a referral to a urologist out of all 10. Patient states that she has had ureteral stents placed and removed in November of 2024. She does have known bilateral kidney stones. She has noticed that her urine output has decreased and is concerned of an obstructing stone. Rates her pain an 8/10 on the left side. Patient is resting comfortably and does not appear to be in any distress at this time. Related Data Home Medications ?Medication ?Instructions ?Recorded ?Confirmed ?Last Taken ?Type multivitamin 1 tablet PO DAILY 04/04/22 12/29/24 12/28/24 History nebivolol 10 mg tablet (Bystolic) 10 mg PO BID 10/21/24 12/29/24 12/29/24 History omeprazole 20 mg capsule,delayed 20 mg PO DAILY 11/23/24 12/29/24 12/28/24 History release tamsulosin 0.4 mg capsule 0.4 mg PO DAILY PRN urinary 11/26/24 12/29/24 12/28/24 History retention Allergies Allergy/AdvReac Type Severity Reaction Status Date / Time ketorolac (From Toradol) Allergy Headache,Rash, Verified 01/19/25 03:07 Swollen tongue tramadol AdvReac Mild VOMITING/HE Verified 01/19/25 03:07 ADACHE hydralazine AdvReac Headache Verified 01/19/25 03:07 Review of Systems 2 Review of Systems: All systems are reviewed and are negative unless stated otherwise in the HPI. [facility] Past Medical History Medical History Left ureteral stone Hypertension Gastroesophageal reflux disease Sleep paralysis, recurrent isolated Smoker Obesity Depression Multiple kidney stones Seasonal allergies Surgical History Surgical History H/O ureteroscopy 10/21/24 on the right due to proximal ureteral stone; Dr Gonzalez History of laparoscopic cholecystectomy on 04/25/23 PDC History of tubal ligation History of endometrial ablation (2009) History of hysterectomy (2015) History of open reduction and internal fixation (ORIF) procedure (2012) Left elbow. History of section 2000, 2001, 2009 Status post cystoscopy with ureteral stent placement Family History Family History Mother Diabetes mellitus Depression Alcoholism Father Hypertension Diabetes mellitus Sibling Congenital heart disease Son Asthma Grandparent Diabetes mellitus Cerebrovascular accident Social History Social History Social History: Surrogate medical decision maker: Bang Luke, spouse. Code status: Full code. Smoking packs per day: 0.5 Smoking cigarettes per day: 10.0 Years smoked: 32 Smoking pack-years: 16.00 Smoking status: Current every day smoker Tobacco type: cigarettes Second hand tobacco smoke exposure: Yes Alcohol intake: never Alcohol use details: Social alcohol use in moderation. Substance use: never Substance use type: does not use Do You Feel Safe in your Home?: Yes Lack of Transportation: No Lack of Food: Never True Current Housing: I Have Housing Concerned About Future Housing: No Difficulty Paying Gas/Electric Bills: No Difficulty Paying for Meds: No Currently Unemployed: YES Education: High School Diploma/GED Difficulty w/ Childcare or Family Care: No Living arrangements: with family Spiritual care concerns: No Exam 2 Narrative: General: Alert, awake, afebrile, in no acute distress. HEENT: PERRL, no rhinorrhea, no post nasal drip, oropharynx clear. Neck: Trachea midline, no JVD, no lymphadenopathy. Cardiovascular: Regular rate and rhythm, no murmurs, rubs or gallops, no peripheral edema. Respiratory: Clear to auscultation bilaterally, no tachypnea, no wheezing, no rhonchi, no rubs, no respiratory distress. Abdomen: Soft, nontender, nondistended, no rebound, no guarding, no peritoneal signs. Musculoskeletal: No joint swelling or deformity, normal muscle tone. Skin: No rashes or petechia, no signs of infection. Psychiatric: Alert and oriented, normal behavior and judgment for situation. Neurological: Alert and oriented to person, place, and time. Follows all commands. No focal deficits, speech is clear and fluent. Course Vital Signs Vital signs: Vital Signs Temperature 97.5 F L 01/19/25 03:14 Pulse Rate 106 H 01/19/25 03:14 Respiratory Rate 18 01/19/25 03:14 Blood Pressure 181/150 H 01/19/25 03:14 Pulse Oximetry 96 01/19/25 03:14 Temperature 97.5 F L 01/19/25 03:14 Pulse Rate 106 H 01/19/25 03:14 Respiratory Rate 18 01/19/25 03:14 Blood Pressure 181/150 H 01/19/25 03:14 Pulse Oximetry 96 01/19/25 03:14 MDM - Abdominal Pain MDM Narrative Medical decision making narrative: The patient was evaluated by myself in the emergency department. History is obtained from patient who is an independent historian and physical exam was performed. External medical records were reviewed at this time. IV was established and pertinent tests were ordered. Patient was administered 2 mg of IV morphine for pain and 4 mg IV Zofran for nausea. Laboratory results obtained revealing no acute process. Urinalysis unremarkable. At this time, I discussed with the patient obtaining a CT scan. I did not recommend repeat CT of her abdomen pelvis without IV contrast as she just had 1 last week revealing no obstructive uropathy. Given the patient's clear urinalysis, I did inform her that I do not believe she is suffering from any obstructive uropathy and did discuss with her the amount of CT scans/radiation that she has had since October, however, patient is persistent that she still wants to CT scan. Imaging studies obtained included CT abdomen and pelvis without IV contrast which was independently interpreted by me revealing no obstructive uropathy/no acute process, which is pending final radiology interpretation. Patient was provided with a printout of her CT report. Instructed that she will need to follow-up with urology. Differential diagnosis considerations include kidney stones, pyelonephritis/UTI, musculoskeletal strain, pancreatitis. Comorbidities impacting this visit include history of kidney stones. I have evaluated and discussed social determinants of health with the patient that could potentially impact subsequent diagnosis and treatment plans. On repeat assessment of the patient, reevaluation revealed that the patient is doing well and is in no acute distress. Patient symptoms have improved since she arrived to our emergency department. Repeat vital signs were all reviewed and noted to be stable. Differential diagnosis and treatment plan were discussed with the patient at bedside. Patient agrees with discussion and after shared medical decision making agrees with discharge. All questions were answered to the patient's satisfaction. Patient will follow up with Urology in 3-5 days. Patient was provided with strict return precautions and instructed to return to the emergency department if any new or worsening symptoms develop. The patient was discharged in stable condition. Lab Data 01/19/25 03:16 01/19/25 03:16 Labs: Lab Results 01/19/25 Range/Units 03:16 WBC 10.3 H (4.5-10.0) K/mm3 RBC 5.05 (4.2-5.4) M/mm3 Hgb 15.4 H (12.0-15.0) g/dL Hct 45.1 (37.0-47.0) % MCV 89.3 (80-100) fl MCH 30.5 (26-34) pg MCHC 34.1 (32-36) g/dl RDW 13.1 (11.5-14.5) % Plt Count 242 (150-375) k/mm3 MPV 9.4 (7.4-10.4) fl Immature Gran % (Auto) 0.2 (0-0.5) % Neut % (Auto) 59.4 (45.5-73.1) % Lymph % (Auto) 29.8 (18.3-44.2) % [place] % (Auto) 8.8 H (2.6-8.5) % Eos % (Auto) 1.3 (0-4.4) % Baso % (Auto) 0.5 (0.2-1.2) % Lymph # (Auto) 3.07 (0.9-3.2) K/mm3 [place] # (Auto) 0.9 H (0.1-0.6) K/mm3 Eos # (Auto) 0.1 (0-0.3) K/mm3 Baso # (Auto) 0.1 (0.0-0.1) K/mm3 Abs Immat Gran (auto) 0.02 (0.00-0.031) K/mm3 Absolute Neuts (auto) 6.1 (1.3-6.7) K/mm3 Absolute Nucleated RBC 0.000 (0.0-0.012) K/mm3 Nucleated RBC % 0.0 (0.0-0.2) % Sodium 137 (137-145) mmol/L Potassium 3.4 (3.4-5.0) mmol/L Chloride 107 (98-107) mmol/L Carbon Dioxide 18 L (22-30) mmol/L Anion Gap 12 (4-12) mmol/L BUN 14 D (7-17) mg/dL Creatinine 0.54 L (0.7-1.0) mg/dL Estim Creat Clear Calc Not Reportable Estimated GFR > 60 (59 - ) Glucose 107 (65-110) mg/dL Calcium 9.7 (8.4-10.2) mg/dL Magnesium 2.0 (1.6-2.3) mg/dL Total Bilirubin 0.6 (0.2-1.3) mg/dL AST 42 H (14-36) U/L ALT 47 H (6-35) U/L Alkaline Phosphatase 86 (38-126) U/L Total Protein 7.9 (6.3-8.2) g/dL Albumin 4.6 (3.5-5.1) g/dL Lipase 101 (23-300) U/L Urine Color Yellow (Yellow) Urine Appearance Clear (Clear) Urine pH 6.0 (5.0-9.0) Ur Specific [place] 1.005 (1.001-1.035) Urine Protein Negative (Negative) mg/dL Urine Glucose (UA) Negative (Negative) mg/dL Urine Ketones Negative (Negative) mg/dL Ur Blood (Man) Negative (Negative) Urine Nitrate Negative (Negative) Urine Bilirubin Negative (Negative) Urine Urobilinogen 0.2 (<2.0) mg/dL Leukocyte Esterase Rfl Negative (Negative) ALEKSANDRA/UL Urine Test Negative Discharge Plan Discharge Clinical Impression: Chronic flank pain Patient Disposition: Home Condition: Improved Instructions: Antibiotic Form, Flank Pain (ED) Additional Instructions: Please follow-up with your urologist within the next 3-5 days. Return to ED if any new or worsening symptoms develop. Patient Language: Croatian Prescriptions: No Action multivitamin Tablet 1 tablet PO DAILY ondansetron 4 mg tablet,disintegrating 4 mg PO Q8H Qty: 14 0RF nebivolol [Bystolic] 10 mg tablet 10 mg PO BID acetaminophen 500 mg capsule 1,000 mg PO Q6H PRN (Reason: pain) Qty: 30 0RF tamsulosin 0.4 mg capsule 0.4 mg PO DAILY PRN (Reason: urinary retention) Rx Instructions: kidney stones docusate sodium 100 mg Capsule 100 mg PO DAILY Qty: 30 0RF omeprazole 20 mg capsule,delayed release(DR/EC) 20 mg PO DAILY ondansetron 4 mg tablet,disintegrating 4 mg PO Q8H PRN (Reason: nausea and vomiting) Qty: 14 0RF oxycodone 5 mg tablet 5 mg PO Q8H PRN (Reason: pain) Qty: 5 0RF amlodipine 10 mg tablet See Rx Instructions .ROUTE .COMPLEX Qty: 90 0RF Dose Instruction: TAKE 1 TABLET BY MOUTH DAILY Rx Instructions: TAKE 1 TABLET BY MOUTH DAILY losartan 50 mg tablet See Rx Instructions .ROUTE .COMPLEX Qty: 180 0RF Dose Instruction: TAKE 1 TABLET BY MOUTH TWICE DAILY Rx Instructions: TAKE 1 TABLET BY MOUTH TWICE DAILY hydrochlorothiazide 25 mg tablet See Rx Instructions .ROUTE .COMPLEX Qty: 90 0RF Dose Instruction: TAKE 1 TABLET BY MOUTH EVERY MORNING Rx Instructions: TAKE 1 TABLET BY MOUTH EVERY MORNING Follow-up/Referrals: Lucas Caretr DO [Primary Care Provider] - Time of Disposition: 04:57
[2025-01-19 03:44] LABS: Pregnancy On Board Control Positive; Urine Pregnancy Test Negative
[2025-01-19 03:47] LABS: Lipase 101 U/L (23-300)
[2025-01-19 03:48] LABS: Alanine Aminotransferase 47 U/L (6-35); Albumin Level 4.6 g/dL (3.5-5.1); Alkaline Phosphatase 86 U/L (38-126); Anion Gap 12 mmol/L (4-12); Aspartate Amino Transferase 42 U/L (14-36); Bilirubin,Total 0.6 mg/dL (0.2-1.3); Blood Urea Nitrogen 14 mg/dL (7-17); Calcium 9.7 mg/dL (8.4-10.2); Carbon Dioxide 18 mmol/L (22-30); Chloride 107 mmol/L (98-107); Estimated Glomerular Filt Rate > 60; Glucose 107 mg/dL (65-110); Potassium 3.4 mmol/L (3.4-5.0); Sodium 137 mmol/L (137-145); Total Protein 7.9 g/dL (6.3-8.2)
[2025-01-19] MEDS: ONDANSETRON INJ 4 MG/2 ML VIAL IV PUSH (03:49)
[2025-01-19] MEDS: SODIUM CHLORIDE 0.9% IV 1,000 ML 999 ML IV CONT (03:49)
[2025-01-19] MEDS: MORPHINE SULFATE (*CRX) 2 MG/ML INJ IV PUSH (03:49)
== END 2025-01-19 05:15 | disposition home or self-care (01) ==
PROVIDERS: Emergency Provider Emergency Medicine; PCP Internal Medicine
DX: R10.9 Unspecified abdominal pain (principal); G89.29 Other chronic pain; I10 Essential (primary) hypertension; K21.9 Gastro-esophageal reflux disease without esophagitis; G47.53 Recurrent isolated sleep paralysis; F32.A Depression, unspecified; F17.210 Nicotine dependence, cigarettes, uncomplicated; Z87.442 Personal history of urinary calculi; Z90.49 Acquired absence of other specified parts of digestive tract; Z90.710 Acquired absence of both cervix and uterus; Z79.899 Other long term (current) 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
CPT/HCPCS: 36415; 74176; 80053; 81003; 81025; 83690; 83735; 85025; 96361; 96374; 96375; 99284; J2270; J2405; J7030

== ENCOUNTER 2025-02-21 18:34 | Inpatient (IN) | payer OTHER, SELFPAY ==
--- NOTE | ~2025-02-21 | CT_ITS ---
CT abdomen pelvis wo con Ordering provider: Rebekah Dillon MD History: 44 years Female with . l flank pain . Comparison: None. Technique: CT abdomen and pelvis without IV and without oral contrast. Automated exposure control and iterative reconstruction technique were employed. The dose-length product was 270.84 mGy-cm. Findings: VISUALIZED LOWER CHEST: Normal. UPPER ABDOMINAL ORGANS: Liver: Fat infiltration. Hepatomegaly. Gallbladder: Status post cholecystectomy. Spleen: Normal. Stomach/duodenum: Normal. Pancreas: Normal. Adrenals: Normal. Kidneys: Tiny stone in the right kidney upper pole. PELVIC ORGANS: The bladder is underfilled. BOWEL AND MESENTERY: Colon: No evidence of diverticulitis. No evidence of appendicitis SmaNormal. No obstruction.struction. Peritoneum/mNo free air or free fluid.rNo mesenteric lymphadenopathy.d ishaan. RETROPERMild atheromatous disease of the abdominal aorta.Michael retroperitoneal lymphadenopathy.denopat hy. MUSCULOSKELETAL: Superficial softThe superficial soft tissues are normal.re normalAge appropriate degenerative changes of the spine.the spine. Bilateral sacroiliitis. Mild bilateral hip osteoarthritic changes. IMP JOSE: 1. No evidence of appendicitis, diverticulitis or intestinal obstruction. 2. Right kidney stone with no hydronephrotic changes. 3. Fat infiltration of the liver. Hepatomegaly. Reviewed, dictated and finalized at location A.
--- OUTSIDE RECORDS SUMMARY | 2025-02-21 18:36 | XMS_ITS | Clinical Summary ---
Author Organization [facility] Address [address] [place] [address] Phone Care Team Providers Care Repossession Agent Name Role Phone Damian Diamond MD Primary Care Provider [phone] Allergies Active Allergy Reactions Criticality Noted Date Comments Hydralazine Vomiting High 11/13/2024 Ketorolac Tromethamine Swelling,Vomiting ,Ot her (see Comments) High 11/13/2024 Headache, tongue swells Tramadol Swelling,Vomiting High 11/13/2024 Swelling of tongue, vomitung Medications losartan (COZAAR) 50 MG Tablet Take 50 mg by mouth 2 times daily. Active hydroCHLOROthia zide 25 MG Tablet Take 25 mg by mouth daily. Active amLODIPine (NORVASC) 10 MG Tablet Take 10 mg by mouth 2 times daily. Active nebivolol (Bystolic) 5 MG Tablet Take by mouth 2 times daily. Active predniSONE (DELTASONE) 20 MG Tablet Take 1 Tablet by mouth daily as needed for Other. 30 Tablet 02/10/2025 Active predniSONE (DELTASONE) 20 MG Tablet Take 1 Tablet by mouth daily for 10 days. 10 Tablet 01/13/2025 Encounters Date Type Department Care Team Description 02/18/2025 8:51 AM CDT - 02/18/2025 11:59 PM CDT Hospital Encounter [facility] Ultrasound [address] [place] [address] Damian Diamond MD Discharge Disposition: Discharged to home or Selfcare 02/18/2025 7:44 AM CDT - 02/18/2025 8:50 AM CDT Hospital Encounter [facility] Mammography [address] [place] [address] Damian Diamond MD Discharge Disposition: Discharged to home or Selfcare 02/17/2025 Travel 02/10/2025 3:30 PM CDT Office Visit [facility] [address] [place] [address] Damian Diamond MD Primary hypertension (Primary Dx); Polyarthralgia Pain in unspecified joint Discharge Disposition: Discharged to home or Selfcare 02/10/2025 Travel 02/05/2025 10:51 PM CDT - 02/06/2025 1:23 AM CDT Emergency [facility] Emergency [address] [place] [address] Mike Melgar MD Chronic abdominal pain Discharge Disposition: Discharged to home or Selfcare 02/05/2025 Travel 01/19/2025 Telephone [facility] [address] [place] [address] Damian Diamond MD 01/19/2025 Travel 01/13/2025 12:30 PM CDT Office Visit [facility] [address] [place] [address] Damian Diamond MD Physical exam, annual (Adult) (Primary Dx); Encounter for screening mammogram for breast cancer Discharge Disposition: Discharged to home or Selfcare 01/11/2025 Travel 12/30/2024 Telephone [facility] [address] [place] [address] Damian Diamond MD from Last 3 Months Immunizations Immunization [...] drink = 0.6 oz pur e alcohol) [facility] Utilities Answer Date Recorded In the past 12 months has [employer] electric, gas, oil, or water company threatened [...] often do you attend chur ch or uatsdin services? Never 01/11/2025 Do you belong to any clubs o r organizations such as mormon groups, unions, fraternal or athletic groups, or [...] medical care, and heating? Somewhat hard 01/11/2025 [facility] - Occupational Stress [...] money to buy more. Never true 01/12/20 25 Within the past 12 months, t he [...] any time in the past 12 m [facility], were you homeless or living in a retirement (including now)? No 01/11/2025 Sexually Active Control Partners Comments Not Currently Male Comments No Sex and Gender Information Value Date Recorded Sex Assigned at Female 01/08/2025 1:59 AM CDT Legal Sex Female 3:04 PM CDT Gender Identity Female 01/08/2025 1:59 AM CDT Sexual Orientation Straight 01/08/2025 1: 59 AM CDT Last Filed Vital Signs Vital Sign Reading Time Taken Comments Blood Pressure 165/110 02/10/2025 3:27 PM CDT Pulse 92 02/10/2025 3:10 PM CDT Temperature 36.8 C (98.2 F) 02/10/2025 3:10 PM CDT Respiratory Rate 18 02/10/2025 3:10 PM CDT Oxygen Saturation 97% 02/10/2025 3:10 PM CDT Inhaled Oxygen Concentration - - Weight 86.3 kg (190 lb 4.8 oz) 02/10/2025 3:10 P M CDT Height 160 cm (5' 3) 02/10/2025 3:10 PM CDT Body Mass Index 33.71 02/10/2025 3:10 PM CDT Plan of Treatment Health Maintenance Due Date Last Done Comments TdaP Immunization 1979 Human Papillomavirus (HPV) Immunization (1 - 3-dose series) 1994 Hepatitis B Immunization (1 of 3 - 19+ 3-dose series) 1998 Pneumococcal Immunization Combined (1 of 2 - PCV) 1998 Cologuard 02/26/2024 Colonoscopy 02/26/2024 Colorectal Cancer Screening 02/26/2024 Immunochemical Fecal Occult Blood 02/26/2024 SARS-COV-2 Immunization ( season) 2024 Influenza Immunization (#1) 04/12/202506/12, 05/12/2015 Mammogram 02/18/2026 02/18/2025 Respiratory Syncytial Virus (RSV) Immunization (Adult) (1 - 1-dose 75+ series) 2054 Hepatitis C Virus (HCV) Screening Completed 02/20/2024 Discussion re Starting/Frequency of Mammograms Completed 02/18/2025 Meningococcal Immunization (ACWY) Aged Out No longer eligible b ased on patient's age to complete this topic Rotavirus Immunization Aged Out No lo nger eligible based on patient's age to complete this topic Procedures Procedure Name Priority Date/Time Associated Diagnosis Comments [facility] US BREAST LIMITED RT Routine 02/18/2025 9:35 AM CDT Abnormal mammogram [facility] DIAG BILATERAL DIGITAL W CAD W [place]ENT[place] Routine 02/18/2025 8:53 AM CDT Abnormal mammogram CT RENAL STONE STUDY (ABDOMEN AND PELVIS W/O CONTRAST) Stat with Interpretation 02/06/2025 12:44 AM CDT URINALYSIS REFLEX IF INDICATED BY ABNORMAL RESULTS STAT 02/05/2025 11:10 PM CDT CBC WITH AUTO DIFFERENTIAL STAT 02/05/2025 10:58 PM CDT MAGNESIUM (MG) STAT 02/05/2025 10:58 PM CDT LIPASE STAT 02/05/2025 10:58 PM CDT CMP (COMPREHENSIVE METABOLIC PANEL) STAT 02/05/2025 10:58 PM CDT COMPLETE BLOOD COUNT (CBC) WITH DIFF STAT 02/05/2025 10:58 PM CDT INTERNAL MEDICINE CONSULT 12/09/2024 12:00 AM CDT from Last 3 Months Results * [facility] US BREAST LIMITED RT (02/18/2025 9:35 AM CDT) Anatomical Region Laterality Modality breast Right Ultrasound 02/18/2025 7:57 AM CDT Narrative 02/18/2025 10:49 AM CDT - [facility] DIAG BILATERAL DIGITAL W CAD W DENT[place] - [facility] US BREAST LIMITED RT BILATERAL DIGITAL DIAGNOSTIC MAMMOGRAM 3D/2D WITH CAD WITH MEDIOLATERAL OBLIQUE CRANIOCAUDAL AND TARGETED RIGHT ULTRASOUND: 02/18/2025 The study was acquired using digital technology and interpreted from soft copy. Current study was also evaluated with ICAD version 7.2. 2D digital mammographic views, as well as 3D digital tomosynthesis were performed in the CC and MLO projections. CLINICAL: New baseline. Patient complains of right lateral breast and axillary tenderness daily for 1 year. She states every 2-3 months the area feels firmer or thicker and becomes painful to raise her right arm. No personal history of cancer. No family history of breast cancer. COMPARISONS: No prior exams were available for comparison. BREAST TISSUE:There are scattered areas of fibroglandular density. FINDINGS: BILATERAL DIAGNOSTIC MAMMOGRAM No significant masses or calcifications are seen in either breast on the mammogram. TARGETED RIGHT BREAST ULTRASOUND Targeted right breast ultrasound was performed in the region of interest as indicated by the patient. This correlates as the 9 o'clock position of the breast 8 cm from the nipple as well as the right axilla. No sonographic abnormality is appreciated. IMPRESSION: OVERALL STUDY BIRADS: CATEGORY 1: NEGATIVE There is no mammographic or sonographic evidence of malignancy. Right breast pain should be managed clinically. A 1 year screening mammogram is recommended. The results and recommendations were discussed with the patient. Electronically signed by: Cris Quintana M.D. ab/:02/18/2025 09:33:34 Die Reamer(s): Jana Mei, RT(R)(M), [facility]; Jessica Vazquez RDMS OBGYN, [facility] letter sent: Normal Exam Abnormal History Reading location: [facility] [place] OVERALL STUDY BIRADS: Category 1: Negative Procedure Note Cris Quintana MD - 02/18/2025 - [facility] DIAG BILATERAL DIGITAL W CAD W [place] - [facility] US BREAST LIMITED RT BILATERAL DIGITAL DIAGNOSTIC MAMMOGRAM 3D/2D WITH CAD WITH MEDIOLATERAL OBLIQUE CRANIOCAUDAL AND TARGETED RIGHT ULTRASOUND: 02/18/2025 The study was acquired using digital technology and interpreted from soft copy. Current study was also evaluated with ICAD version 7.2. 2D digital mammographic views, as well as 3D digital tomosynthesis were performed in the CC and MLO projections. CLINICAL: New baseline. Patient complains of right lateral breast and axillary tenderness daily for 1 year. She states every 2-3 months the area feels firmer or thicker and becomes painful to raise her right arm. No personal history of cancer. No family history of breast cancer. COMPARISONS: No prior exams were available for comparison. BREAST TISSUE:There are scattered areas of fibroglandular density. FINDINGS: BILATERAL DIAGNOSTIC MAMMOGRAM No significant masses or calcifications are seen in either breast on the mammogram. TARGETED RIGHT BREAST ULTRASOUND Targeted right breast ultrasound was performed in the region of interest as indicated by the patient. This correlates as the 9 o'clock position of the breast 8 cm from the nipple as well as the right axilla. No sonographic abnormality is appreciated. IMPRESSION: OVERALL STUDY BIRADS: CATEGORY 1: NEGATIVE There is no mammographic or sonographic evidence of malignancy. Right breast pain should be managed clinically. A 1 year screening mammogram is recommended. The results and recommendations were discussed with the patient. Electronically signed by: Cris Quintana M.D. ab/:02/18/2025 09:33:34 Die Reamer(s): RT Jocelin(R)(M), [facility]; Jessica Vazquez RDMS OBGURU, [facility] letter sent: Normal Exam Abnormal History Reading location: [facility] [place] OVERALL STUDY BIRADS: Category 1: Negative us Damian Diamond MD IMG MAMMO ORDERABLES Final Re sult * [facility] DIAG BILATERAL DIGITAL W CAD W [place] (02/18/2025 8:53 AM CDT) Anatomical Region Laterality Modality breast Bilateral Mammography 02/18/2025 7:57 AM CDT Narrative 02/18/2025 10:49 AM CDT - [facility] DIAG BILATERAL DIGITAL W CAD W [place] - [facility] US BREAST LIMITED RT BILATERAL DIGITAL DIAGNOSTIC MAMMOGRAM 3D/2D WITH CAD WITH MEDIOLATERAL OBLIQUE CRANIOCAUDAL AND TARGETED RIGHT ULTRASOUND: 02/18/2025 The study was acquired using digital technology and interpreted from soft copy. Current study was also evaluated with ICAD version 7.2. 2D digital mammographic views, as well as 3D digital tomosynthesis were performed in the CC and MLO projections. CLINICAL: New baseline. Patient complains of right lateral breast and axillary tenderness daily for 1 year. She states every 2-3 months the area feels firmer or thicker and becomes painful to raise her right arm. No personal history of cancer. No family history of breast cancer. COMPARISONS: No prior exams were available for comparison. BREAST TISSUE:There are scattered areas of fibroglandular density. FINDINGS: BILATERAL DIAGNOSTIC MAMMOGRAM No significant masses or calcifications are seen in either breast on the mammogram. TARGETED RIGHT BREAST ULTRASOUND Targeted right breast ultrasound was performed in the region of interest as indicated by the patient. This correlates as the 9 o'clock position of the breast 8 cm from the nipple as well as the right axilla. No sonographic abnormality is appreciated. IMPRESSION: OVERALL STUDY BIRADS: CATEGORY 1: NEGATIVE There is no mammographic or sonographic evidence of malignancy. Right breast pain should be managed clinically. A 1 year screening mammogram is recommended. The results and recommendations were discussed with the patient. Electronically signed by: Cris Quintana M.D. ab/:02/18/2025 09:33:34 Die Reamer(s): RT Jocelin(R)(M), [facility]; MARCELO Rowley, [facility] letter sent: Normal Exam Abnormal History Reading location: [facility] [place] OVERALL STUDY BIRADS: Category 1: Negative Procedure Note Cris Quintana MD - 02/18/2025 - [facility] DIAG BILATERAL DIGITAL W CAD W [place] - [facility] US BREAST LIMITED RT BILATERAL DIGITAL DIAGNOSTIC MAMMOGRAM 3D/2D WITH CAD WITH MEDIOLATERAL OBLIQUE CRANIOCAUDAL AND TARGETED RIGHT ULTRASOUND: 02/18/2025 The study was acquired using digital technology and interpreted from soft copy. Current study was also evaluated with BioData version 7.2. 2D digital mammographic views, as well as 3D digital tomosynthesis were performed in the CC and MLO projections. CLINICAL: New baseline. Patient complains of right lateral breast and axillary tenderness daily for 1 year. She states every 2-3 months the area feels firmer or thicker and becomes painful to raise her right arm. No personal history of cancer. No family history of breast cancer. COMPARISONS: No prior exams were available for comparison. BREAST TISSUE:There are scattered areas of fibroglandular density. FINDINGS: BILATERAL DIAGNOSTIC MAMMOGRAM No significant masses or calcifications are seen in either breast on the mammogram. TARGETED RIGHT BREAST ULTRASOUND Targeted right breast ultrasound was performed in the region of interest as indicated by the patient. This correlates as the 9 o'clock position of the breast 8 cm from the nipple as well as the right axilla. No sonographic abnormality is appreciated. IMPRESSION: OVERALL STUDY BIRADS: CATEGORY 1: NEGATIVE There is no mammographic or sonographic evidence of malignancy. Right breast pain should be managed clinically. A 1 year screening mammogram is recommended. The results and recommendations were discussed with the patient. Electronically signed by: Cris Quintana M.D. ab/:02/18/2025 09:33:34 Die Reamer(s): RT Jocelin(R)(M), [facility]; MARCELO Rowley, [facility] letter sent: Normal Exam Abnormal History Reading location: [facility] [place] OVERALL STUDY BIRADS: Category 1: Negative us Damian Diamond MD IMG MAMMO ORDERABLES Final Re sult * CT RENAL STONE STUDY (ABDOMEN AND PELVIS W/O CONTRAST) (02/06/2025 12:44 AM CDT) Anatomical Region Laterality Modality Abdomen N/A Computed Tomogra phy 02/06/2025 1:03 AM CDT Impressions 02/06/2025 1:06 AM CDT IMPRESSION: 1. No obstructing renal or ureteral calculus. 2. Punctate nonobstructing bilateral renal stones. 3. Fatty infiltration of the liver. 4. Surgical absence of the gallbladder. 5. Diverticulosis. No evidence of diverticulitis. Narrative 02/06/2025 1:06 AM CDT EXAM DESCRIPTION: CT RENAL STONE STUDY (ABDOMEN AND PELVIS W/O CONTRAST) REASON FOR STUDY: c/o left flank pain x 3 days. Pt reports dark colored urine with urinary urgency. HX: Kidney stones, Spinal stenosis, Cholecystectomy, Partial hysterectomy TECHNIQUE: CT scan of the abdomen and pelvis performed without intravenous and without oral contrast using helical scanning technique. Reconstructed coronal and sagittal MPR images reviewed. All images stored on PACS. Automated exposure control was used as a dose optimization technique for this examination. COMPARISON: None FINDINGS: The sensitivity for detection of visceral lesions is diminished without the use of intravenous contrast. LOWER CHEST: No significant pulmonary abnormalities. No effusion. LIVER: Decreased attenuation as seen with fibrofatty changes. GALLBLADDER: Surgically absent. BILE DUCTS: No intrahepatic or extrahepatic ductal dilatation. SPLEEN: Normal size. No focal lesions. PANCREAS: No identified cystic or solid masses. No significant calcifications. No adjacent inflammation or peripancreatic fluid collections. Pancreatic duct not dilated. ADRENALS: Normal. KIDNEYS/URINARY TRACT: No identified significant cystic or solid masses. Punctate nonobstructing bilateral renal stones. No obstructing renal or ureteral calculus. No hydronephrosis or hydroureter. Urinary bladder is unremarkable. GI: No dilated bowel loops. No obvious wall thickening. Normal appendix. Scattered diverticular disease without diverticulitis. PERITONEUM: No ascites or free air. RETROPERITONEUM: No mass or adenopathy. REPRODUCTIVE: No significant abnormality. VASCULATURE: No abdominal aortic aneurysm. MUSCULOSKELETAL: No significant abnormality. OTHER: No other abnormality. THIS IS AN ELECTRONICALLY VERIFIED FINAL REPORT 02/06/2025 1:03 AM - Electronically signed by Jose R Carrillo M.D. KT: SHUN Report ID: [id number] Reading Location: [place] [address] Procedure Note Jose R Carrillo MD - 02/06/2025 EXAM DESCRIPTION: CT RENAL STONE STUDY (ABDOMEN AND PELVIS W/O CONTRAST) REASON FOR STUDY: c/o left flank pain x 3 days. Pt reports dark colored urine with urinary urgency. HX: Kidney stones, Spinal stenosis, Cholecystectomy, Partial hysterectomy TECHNIQUE: CT scan of the abdomen and pelvis performed without intravenous and without oral contrast using helical scanning technique. Reconstructed coronal and sagittal MPR images reviewed. All images stored on PACS. Automated exposure control was used as a dose optimization technique for this examination. COMPARISON: None FINDINGS: The sensitivity for detection of visceral lesions is diminished without the use of intravenous contrast. LOWER CHEST: No significant pulmonary abnormalities. No effusion. LIVER: Decreased attenuation as seen with fibrofatty changes. GALLBLADDER: Surgically absent. BILE DUCTS: No intrahepatic or extrahepatic ductal dilatation. SPLEEN: Normal size. No focal lesions. PANCREAS: No identified cystic or solid masses. No significant calcifications. No adjacent inflammation or peripancreatic fluid collections. Pancreatic duct not dilated. ADRENALS: Normal. KIDNEYS/URINARY TRACT: No identified significant cystic or solid masses. Punctate nonobstructing bilateral renal stones. No obstructing renal or ureteral calculus. No hydronephrosis or hydroureter. Urinary bladder is unremarkable. GI: No dilated bowel loops. No obvious wall thickening. Normal appendix. Scattered diverticular disease without diverticulitis. PERITONEUM: No ascites or free air. RETROPERITONEUM: No mass or adenopathy. REPRODUCTIVE: No significant abnormality. VASCULATURE: No abdominal aortic aneurysm. MUSCULOSKELETAL: No significant abnormality. OTHER: No other abnormality. THIS IS AN ELECTRONICALLY VERIFIED FINAL REPORT 02/06/2025 1:03 AM - Electronically signed by Jose R Carrillo M.D. KT: SHUN Report ID: [id number] Reading Location: [id number] IMPRESSION: 1. No obstructing renal or ureteral calculus. 2. Punctate nonobstructing bilateral renal stones. 3. Fatty infiltration of the liver. 4. Surgical absence of the gallbladder. 5. Diverticulosis. No evidence of diverticulitis. Mike Melgar MD IMG CT ORDERABLES Final R esult * Urinalysis w/ Reflex (02/05/2025 11:10 PM CDT) SPECIFIC GRAVITY 1.010 1.003 - 1.030 02/06/2025 12:01 AM CDT [facility] URINE PH 6.0 5.0 - 9.0 02/06/2025 12:01 AM CDT [facility] WBC ESTERASE Negative Negative 02/06/2025 12:01 AM CDT [facility] NITRITE Negative Negative 02/06/2025 12:01 AM CDT [facility] PROTEIN, RANDOM URINE Negative Negative 02/06/2025 12:01 AM CDT [facility] URINE GLUCOSE, QUAL Negative Negative 02/06/2025 12:01 AM CDT [facility] URINE KETONES Negative Negative 02/06/2025 12:01 AM CDT [facility] UROBILINOGEN Normal Normal mg/dL 02/06/2025 12:01 AM CDT [facility] URINE BLOOD Negative Negative thais/ul 02/06/2025 12:01 AM CDT [facility] URINALYSIS COLOR Yellow 02/07/20 12:01 AM CDT [facility] URINALYSIS CLARITY Clear 02/06/2025 12:01 AM CDT [facility] Urine URINE SPECIMEN OBTAINED BY CLEAN CATCH PROCEDURE / Unknown Non-Phlebotomy Collection / Unknown 02/05/2025 11:10 PM CDT 02/05/2025 11:52 PM CDT Mike Melgar MD URINE ORDERABLES Final Re sult [facility] [address] [place] [address] * (ABNORMAL) CBC with Auto Differential (02/05/2025 10:58 PM CDT) WBC 9.30 4.00 - 12.00 10(3)/mcL 02/05/2025 11:20 PM CDT [facility] RBC 4.96 3.80 - 5.30 10(6)/mcL 02/05/2025 11:20 PM CDT [facility] HEMOGLOBIN (HGB) 15.1 12.0 - 15.8 g/dL 02/05/2025 11:20 PM CDT [facility] HEMATOCRIT (HCT) 43.4 36.0 - 47.0 % 02/05/2025 11:20 PM CDT [facility] MCV 87.5 82.0 - 96.0 fL 02/05/2025 11:20 PM CDT [facility] MCH 30.4 26.0 - 34.0 pg 02/05/2025 11:20 PM CDT [facility] MCHC 34.8 31.0 - 36.0 g/dL 02/05/2025 11:20 PM CDT [facility] PLATELET COUNT 263 140 - 440 10(3)/mcL 02/05/2025 11:20 PM CDT [facility] RDW 12.3 11.8 - 15.5 % 02/05/2025 11:20 PM CDT [facility] MPV 9.6(L) 9.7 - 12.4 fL 02/05/2025 11:20 PM CDT [facility] NEUTROPHILS 59.3 47.0 - 73.0 % 02/05/2025 11:20 PM CDT [facility] LYMPHOCYTES 30.9 18.0 - 42.0 % 02/05/2025 11:20 PM CDT [facility] MONOCYTES 7.4 4.0 - 12.0 % 02/05/2025 11:20 PM CDT [facility] EOSINOPHILS 1.6 0.0 - 5.0 % 02/05/2025 11:20 PM CDT [facility] BASOPHILS 0.5 0.0 - 1.0 % 02/05/2025 11:20 PM CDT [facility] IMMATURE GRANULOCYTE 0.3 0.0 - 0.4 % 02/05/2025 11:20 PM CDT [facility] Comment:Immature Granulocyte s includes Metamyelocytes, Myelocytes, and Promyelocytes. ABSOLUTE NEUTROPHILS 5.51 1.60 - 7.70 10(3)/[facility] 02/05/2025 11:20 PM CDT [facility] ABSOLUTE LYMPHOCYTES 2.87 1.30 - 3.20 10(3)/[facility] 02/05/2025 11:20 PM CDT [facility] ABSOLUTE MONOCYTES 0.69 0.20 - 1.00 10(3)/[facility] 02/05/2025 11:20 PM CDT [facility] ABSOLUTE EOSINOPHIL 0.15 0.00 - 0.40 10(3)/[facility] 02/05/2025 11:20 PM CDT [facility] ABSOLUTE BASOPHILS 0.05 0.00 - 0.10 10(3)/[facility] 02/05/2025 11:20 PM CDT [facility] ABSOLUTE IMMATURE GRANULOCYTE 0.03 0.00 - 0.03 10 (3) [facility]. 02/05/2025 11:20 PM CDT [facility] NRBC PER 100 WBC 0 02/06/20 11:20 PM CDT [facility] Blood Venipuncture / Unknown 02/05/2025 10:58 PM CDT 02/05/2025 11:18 PM CDT us Mike Melgar MD HEMATOLOGY ORDERABLES Fin al Result [facility] [address] [place] [address] * Magnesium Level (02/05/2025 10:58 PM CDT) Pathologist [facility] MAGNESIUM 1.8 1.6 - 2.6 mg/dL 02/05/2025 11:43 PM CDT [facility] Blood Venipuncture / Unknown 02/05/2025 10:58 PM CDT 02/05/2025 11:18 PM CDT us Mike Melgar MD CHEMISTRY ORDERABLES Sandra l Result [facility] [address] [place] [address] * Lipase (02/05/2025 10:58 PM CDT) Pathologist [facility] LIPASE 22 8 - 78 U/L 02/05/2025 11:43 PM CDT [facility] Blood Venipuncture / Unknown 02/05/2025 10:58 PM CDT 02/05/2025 11:18 PM CDT Mike Melgar MD CHEMISTRY ORDERABLES Sandra l Result Performing Organization Address City/[facility]/ZIP Co de Phone Number [facility] [address] [place] [address] * (ABNORMAL) CMP (02/05/2025 10:58 PM CDT) Pathologist [facility] SODIUM 137 136 - 145 mmol/L 02/05/2025 11:43 PM CDT [facility] POTASSIUM 3.0(L) 3.5 - 5.1 mmol/L 02/05/2025 11:43 PM CDT [facility] CHLORIDE 105 98 - 107 mmol/L 02/05/2025 11:43 PM CDT [facility] CO2, VENOUS 22 22 - 30 mmol/L 02/05/2025 11:43 PM CDT [facility] ANION GAP 13.0 <18.0 mmol/L 02/05/2025 11:43 PM [facility] GLUCOSE 77 70 - 99 mg/dL 02/05/2025 11:43 PM T [facility] BUN 7 5 - 18 mg/dL 02/05/2025 11:43 PM [facility] CREATININE, BLOOD 0.71 0.60 - 1.00 mg/dL 02/05/2025 11:43 PM [facility] BUN/CREATININE RATIO 10(L) 12 - 20 ratio 02/05/2025 11:43 PM [facility] TOTAL PROTEIN 7.9 6.0 - 8.0 g/dL 02/05/2025 11:43 PM [facility] ALBUMIN 4.7 3.5 - 5.0 g/dL 02/05/2025 11:43 PM [facility] A/G RATIO 1.5 1.0 - 2.2 02/05/2025 11:43 PM [facility] CALCIUM 9.2 8.7 - 10.5 mg/dL 02/05/2025 11:43 PM [facility] T BILI 0.6 0.2 - 1.2 mg/dL 02/05/2025 11:43 PM [facility] SGOT (AST) 43(H) <43 U/L 02/05/2025 11:43 PM [facility] SGPT (ALT) 61(H) <56 U/L 02/05/2025 11:43 PM [facility] ALKALINE PHOSPHATASE 89 40 - 150 U/L 02/05/2025 11:43 PM [facility] GFR, ESTIMATED >60 >=60 02/05/2025 11:43 PM [facility] Comment: Creatinine Clearance is the preferred criteria for selecting drug dose adjustments in renally impaired patients. The GFR is provided as additional pertinent clinical information. GFR is reported in mL/min/1.73 sq m. Calculation based on the Chronic Kidney Disease Epidemiology Collaboration (CKD- EPI) equation refit without adjustment for race. GFR, EST. >60 >=60 025 11:43 PM CDT [facility] GFR, EST. NONAFRICAN >60 >=60 02/05/2025 11:43 PM CDT [facility] Blood Venipuncture / Unknown 02/05/2025 10:58 PM CDT 02/05/2025 11:18 PM CDT us Mike Melgar MD CHEMISTRY ORDERABLES Sandra l Result Performing Organization Address City/[facility]/ZIP Co de Phone Number [facility] [address] [place] [address] * INTERNAL MEDICINE CONSULT (12/09/2024 12:00 AM CDT) 12/09/2024 us Provider Scan GENERIC SCAN ORDERS CONSULT Sandra l Result SCAN from Last 3 Months Insurance MEDICAID [place] Care Teams Repossession Agent Relationship Specialty Start Date End Date Damian Diamond MD [id number] [address] PCP - General Family Medicine 01/13/25
--- OUTSIDE RECORDS SUMMARY | 2025-02-21 18:36 | XMS_ITS | Clinical Summary ---
Author Organization 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 MULTIVIT-MINERALS/ FERROUS FUM (MULTI VITAMIN ORAL)Indications:h ealth Take 1 tablet by mouth 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 operator before 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 Active ondansetron ODT [...] 1 tablet (25 mg total) by mouth 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 operator 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 Active nebivoloL (BYSTOLIC) 10 mg tabletIndications: hypertension Take 1 tablet (10 mg total) by mouth every other day 01/03/20 24 Active amLODIPine (NORVASC) 10 mg tabletIndications: hypertension Take 1 tablet (10 mg total) by mouth nightly 03/03/20 24 Active ibuprofen 200 mg tab/cap Take 2 tablet/capsul e (400 mg total) by mouth every 6 (six) hours as needed for pain Active cyclobenzaprine (FLEXERIL) 10 mg tablet TAKE 1 TABLET(10 MG) BY MOUTH THREE TIMES DAILY NEEDED FOR MUSCLE SPASMS 90 tablet 1 11/24/19 25 Active meloxicam (MOBIC) 15 mg tablet TAKE 1 TABLET(15 MG) BY MOUTH DAILY 30 tablet 11/24/19 25 Active pregabalin (LYRICA) 150 mg capsule Take 1 capsule (150 mg total) by mouth nightly 90 capsule 02/19/20 25 Active oxyCODONE-acetamin ophen (PERCOCET) 5-325 mg per tabletIndications: Pain Take 1 tablet by mouth every 8 (eight) hours as needed for pain for up to 3 days 9 tablet 02/20/20 25 025 Active HYDROcodone-acetam inophen (NORCO) 5-325 mg per tabletIndications: Pain Take 1 tablet by mouth every 6 (six) hours as needed for pain 8 tablet 07/01/20 24 025 Discontin ued(Patie nt Reported) pregabalin (LYRICA) 150 mg capsule Take 1 capsule (150 mg total) by mouth nightly 90 capsule 11/22/19 25 025 Discontin ued(Reord er) oxyCODONE (ROXICODONE) 5 mg immediate release tabletIndications: Pain Take 1 tablet (5 mg total) by mouth every 4 (four) hours as needed for pain 12 tablet 01/28/20 25 025 Discontin ued(Patie nt Reported) oxyCODONE (ROXICODONE) 5 mg immediate release tabletIndications: Pain Take 1 tablet (5 mg total) by mouth every 6 (six) hours as needed for pain for up to 4 days 6 tablet 02/17/20 25 025 Discontin ued(Patie nt Reported) Active Problems Problem Noted Date Diagnosed Date [...] Encounters Date Type Department Care Team Description 02/19/2025 5:24 PM CDT - 02/19/2025 11:02 PM CDT Emergency [facility] Emergency Department [address] [place] [phone] Laci Vo MD Hypertensive urgency (Primary Dx); Cystic disease of ovary; Abdominal pain Discharge Disposition: Discharge to home or self care 02/19/2025 3:15 PM CDT Office Visit [facility] [address] [place] [address] Outpatient Health 3rd Floor [address] [place] [address] Christina Torres MD Pelvic pain 02/16/2025 Orders Only [address] [phone] Olivia Caro MD Pain in female pelvis (Primary Dx) 02/15/2025 11:39 PM CDT - 02/16/2025 5:51 AM CDT Emergency [facility] Emergency Department [address] [place] [phone] Mine Arias MD Hemorrhagic ovarian cyst (Primary Dx); Hypertension, unspecified type; Pelvic pain Discharge Disposition: Discharge to home or self care 01/27/2025 2:29 AM CDT - 01/27/2025 7:19 AM CDT Emergency [facility] Emergency Department [address] [place] [phone] Evan Velazquez MD Pelvic pain (Primary Dx) Discharge Disposition: Discharge to [...] [place] Maternal Grandfather Beka Sr. Maternal Grandmother [place] Mother Melelizabethe Paternal Grandfather Dusty Sister Sarai Social History Tobacco Use Types Packs/Day Years Used Date Smoking Tobacco: Every Day Cigarettes 0.8 33.3 Started: 11/11/1991 Smokeless Tobacco: Never Tobacco Cessation:Ready [...] making you feel afraid or unsafe? Denies 02/19/2025 Comments No Sex and Gender Information Value Date Recorded Sex Assigned at Not on file Legal Sex Female 9:06 PM BANANA LOAD[employer] Gender Identity Female 10/01/2023 8:44 AM BANANA LOADER Sexual Orientation Straight 10/01/2023 8: 44 AM BANANA LOADER Obstetrics History Para Term AB IAB SAB [...] Reading Time Taken Comments Blood Pressure 165/110 02/19/2025 10:30 PM CDT Pulse 65 02/19/2025 10:30 PM CDT Temperature 37 C (98.6 F) 02/19/2025 4:29 PM CDT Respiratory Rate 16 02/19/2025 10:30 PM CDT Oxygen Saturation 94% 02/19/2025 10:30 PM CDT Inhaled Oxygen Concentration - - Weight 87.1 kg (192 lb) 02/19/2025 4:29 PM CDT Height 160 cm (5' 3) 02/19/2025 4:29 PM CDT Body Mass Index 34.01 02/19/2025 4:29 PM CDT Plan of Treatment Health Maintenance Due Date Last Done Comments Colon Cancer Screening-Colonoscopy 1979 Depression Screening 1979 Hepatitis C Screening 1979 DTaP/Tdap/Td Vaccine (1 - Tdap) 1990 Hepatitis B Screening 1997 Pneumococcal vaccine <65 (1 of 2 - PCV) 1998 Regular Well Visit/Exam 18-64 10/08/2020 10/08/2019 Influenza Vaccine (#1) 2025 5, 05/12/2015 Breast Cancer Screening-Mammogram 02/18/2026 02/18/2025, 02/18/2025 HPV Vaccines Aged Out No longer eligi [...] on stairs Contact your local community or federal medical center, [place] for information on exercise, fall prevention programs, or options for improving home safety. 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 Device Identifier Shelf Expiration Date Model / Serial / Lot Screw Left: Elbow Procedures Procedure Name Priority Date/Time Associated Diagnosis Comments TROPONIN I HIGH-SENSITIVITY 4-HOUR Timed 02/19/2025 9:24 PM CDT URINALYSIS, MICROSCOPIC ONLY STAT 02/19/2025 8:42 PM CDT URINALYSIS AND REFLEX TO MICROSCOPIC AND CULTURE STAT 02/19/2025 8:42 PM CDT TROPONIN I HIGH-SENSITIVITY 2-HOUR Timed 02/19/2025 8:41 PM CDT ECG 12-LEAD Routine 02/19/2025 7:20 PM CDT APTT STAT 02/19/2025 7:13 PM CDT TYPE AND SCREEN STAT 02/19/2025 7:13 PM CDT XR CHEST PA LATERAL 2 VIEWS ED 02/19/2025 6:[address] HEAD WO CONTRAST ED 02/19/2025 6 :23 PM CDT [place] CRITICAL C[facility] ILL/INJURED PATIENT INIT 30-74 MIN Routine 02/19/2025 5:47 PM CDT EGFR STAT 02/19/2025 5:47 PM CDT DIFFERENTIAL AUTO STAT 02/19/2025 5:4 7 PM CDT CBC WITH AUTO DIFFERENTIAL STAT 02/19/2025 5:47 PM CDT COMPREHENSIVE METABOLIC PANEL STAT 02/19/2025 5:47 PM CDT TROPONIN I HIGH-SENSITIVITY SERIES (BASELINE, 2HR, 4HR, 6HR) STAT 02/19/2025 5:46 PM CDT URINALYSIS AND REFLEX TO MICROSCOPIC STAT 02/15/2025 11:53 PM CDT POCT HCG, URINE Routine 02/15/2025 11:49 PM CDT EGFR STAT 02/15/2025 11:44 PM CDT DIFFERENTIAL AUTO STAT 02/15/2025 11: 44 PM CDT LIPASE STAT 02/15/2025 11:44 PM CDT COMPREHENSIVE METABOLIC PANEL STAT 02/15/2025 11:44 PM CDT CBC WITH AUTO DIFFERENTIAL STAT 02/15/2025 11:44 PM CDT URINALYSIS, MICROSCOPIC ONLY STAT 01/27/2025 5:33 AM CDT PROTIME-INR STAT 01/27/2025 5:33 AM CDT APTT STAT 01/27/2025 5:33 AM CDT URINALYSIS AND REFLEX TO MICROSCOPIC STAT 01/27/2025 5:33 AM CDT POCT HCG, URINE Routine 01/27/2025 5:[address] ABDOMEN PELVIS W CONTRAST ED 01/27/2025 3:56 AM CDT CRITICAL RESULT CALLBACK HEMATOLOGY STAT 01/27/2025 3:05 AM CDT THROMBIN TIME STAT 01/27/2025 3:05 AM CDT TYPE AND SCREEN STAT 01/27/2025 3:05 AM CDT APTT STAT 01/27/2025 3:05 AM CDT PROTIME-INR STAT 01/27/2025 3:05 AM CDT EGFR STAT 01/27/2025 2:47 AM CDT DIFFERENTIAL AUTO STAT 01/27/2025 2:4 7 AM CDT COMPREHENSIVE METABOLIC PANEL STAT 01/27/2025 2:47 AM CDT CBC WITH AUTO DIFFERENTIAL STAT 01/27/2025 2:47 AM CDT from Last 3 Months Results * Troponin I high-sensitivity 4-hour (02/19/2025 9:24 PM CDT) Trop I hs 5 <=17 ng/L Comment: Interpretive Data For further hscTnI resources including the diagnostic algorithm and an aid in interpretation, copy and paste this link: https://bjhlab.testcatalog.org/show/hsTrop-1 Current Interpretive Data last revised 2020. Trop I hs delta -2 ng/L [facility] Trop I hs interp Insignificant [facility] Blood 02/19/2025 9:24 PM CDT 02/19/2025 9:50 PM CDT us Devante Freedman MD LAB BLOOD ORDERABLES Fi nal Result [facility] [place] [address] * (ABNORMAL) Urinalysis reflex to microscopic and culture Urine, clean voided (02/19/2025 8:42 PM CDT) Color, ur Yellow Yellow Clarity, ur Cloudy(A) Clear [facility] Specific gravity, ur 1.030 1.003 - 1.030 [facility] pH, urine 6.0 [facility] Comment: Interpretive Data U rine pH is affected by diet, medications, systemic acid-base disturbances, and renal tubular function. pH may affect urinary stone formation. For example, urine pH below 6.0 may help reduce the tendency for calcium phosphate stones and pH greater than 6.0 may reduce the tendency for uric acid stone formation. Source: [facility] Current Interpretive Data was last revised on 2017 Protein, ur ql Trace Negative [facility] Glucose, ur ql Negative Negative [facility] Ketones, ur Negative Negative [facility] Bilirubin, ur Negative Negative [facility] Blood, ur 2+(A) Negative [facility] Urobilinogen, ur <2.0 <2.0 mg/dL [facility] Nitrite, ur Negative Negative [facility] Leukocyte esterase, ur Negative Negative [facility] UA reflex comment Reflex to microscopic UA will be performed. [facility] Urine, clean voided 02/19/2025 8:42 PM CDT 02/19/2025 8:49 PM CDT Devante Lois Freedman MD LAB MICROBIOLOGY - [facility] ORDERABLES Final Result [facility] S[facility] [place] [address] * (ABNORMAL) Urinalysis, microscopic only (02/19/2025 8:42 PM CDT) WBC, ur 6-10(A) 0 - 5 /HPF RBC, ur 21-50(A) 0 - 2 /HPF [facility] Epithelial cells, squamous, ur 11-20(A) 0 - 5 /HPF [facility] Comment:Suggestive of contam ination. Consider recollection by clean catch. Mucous, ur Present(A) [facility] Culture Reflex Comment Reflex conditions for urine culture (WBC >10) not met. [facility] Urine, clean voided 02/19/2025 8:42 PM CDT 02/19/2025 8:49 PM CDT Devante Freedman MD LAB URINE ORDERABLES Fi nal Result Performing Organization Address [facility] de Phone Number [facility] [place] [address] * Troponin I high-sensitivity 2-hour (02/19/2025 8:41 PM CDT) Trop I hs 6 <=17 ng/L Comment: Interpretive Data For further hscTnI resources including the diagnostic algorithm and an aid in interpretation, copy and paste this link: https://bjhlab.testcatalog.org/show/hsTrop-1 Current Interpretive Data last revised 2020. Trop I hs delta -1 ng/L [facility] Trop I hs interp Insignificant [facility] Blood 02/19/2025 8:41 PM CDT 02/19/2025 8:53 PM CDT Devante Freedman MD LAB BLOOD ORDERABLES Fi nal Result Performing Organization Address [facility] Co de Phone Number [facility] [place] [address] * ECG 12-LEAD (02/19/2025 7:20 PM CDT) Narrative [facility] - 02/19/2025 7:20 PM CDT Laci Vo MD 02/19/2025 7:20 PM ECG 12 lead Date/Time: 02/19/2025 7:20 PM Performed by: Laci Vo MD Authorized by: Devante Freedman MD Rate: ECG rate: Rate 67, narrow complex, regular, sinus, no STEMI Devante Freedman MD ECG ORDERABLES Final R esult Performing Organization Address [facility] Co de Phone Number [facility] * aPTT (02/19/2025 7:13 PM CDT) aPTT 34 28 - 38 sec Comment: Interpretive Data Heparin therapeutic range: 66.0 - 100.0 seconds. Range based on correlation with therapeutic heparin activity range of 0.3 - 0.7 Units/mL. Current interpretive data was last revised on 2023. Blood 02/19/2025 7:13 PM CDT 02/19/2025 7:34 PM CDT Devante Freedman MD LAB BLOOD ORDERABLES Fi nal Result Performing Organization Address [facility] de Phone Number [facility] [place] [address] * Type and screen (02/19/2025 7:13 PM CDT) ABO Rh B Positive Jorge, indirect Negative [facility] Blood 02/19/2025 7:13 PM CDT 02/19/2025 7:31 PM CDT Narrative [facility] - 02/19/2025 8:27 PM CDT Has the patient had Daratumumab or Isatuximab in the past 6 months?->Unknown Devante Freedman MD LAB BLOOD BANK TEST ORD ERABLES Final Result Performing Organization Address [facility] Co de Phone Number [facility] [place] [address] * XR Chest PA Lateral 2 Views (02/19/2025 6:33 PM CDT) Anatomical Region Laterality Modality Body, Chest N/A Computed Radiogr aphy 02/19/2025 6:40 PM CDT Impressions 02/19/2025 8:00 PM CDT PA and lateral views of the chest were obtained, with comparison to prior chest radiographs dated most recently 05/19/2022. No consolidation, pleural effusion, or pneumothorax. Normal cardiomediastinal silhouette. Cholecystectomy clips noted. Dictated by: Elis Robertson M.D. The radiology attending physician has personally reviewed this study, and had reviewed and/or edited this written report and agrees with it. Electronically signed by: Piedad Galo M.D. Narrative 02/19/2025 8:00 PM CDT EXAMINATION: XR CHEST PA LATERAL 2 VIEWS HISTORY: 44-year-old woman presenting from outpatient clinic with hypertension. Concern for pulmonary edema and aortic dissection. Procedure Note Piedad Galo MD - 02/19/2025 EXAMINATION: XR CHEST PA LATERAL 2 VIEWS HISTORY: 44-year-old woman presenting from outpatient clinic with hypertension. Concern for pulmonary edema and aortic dissection. IMPRESSION: PA and lateral views of the chest were obtained, with comparison to prior chest radiographs dated most recently 05/19/2022. No consolidation, pleural effusion, or pneumothorax. Normal cardiomediastinal silhouette. Cholecystectomy clips noted. Dictated by: Elis Robertson M.D. The radiology attending physician has personally reviewed this study, and had reviewed and/or edited this written report and agrees with it. Electronically signed by: Piedad Galo M.D. Devante Lois Freedman MD IMG XR PROCEDURES Final Result * CT Head WO Contrast (02/19/2025 6:23 PM CDT) Anatomical Region Laterality Modality Head and Neck N/A Computed Tomogra phy 02/19/2025 6:42 PM CDT Impressions 02/19/2025 6:46 PM CDT No intracranial hemorrhage or large acute edematous infarct. Dictated by: John Morrow MD The radiology attending physician has personally reviewed this study, and had reviewed and/or edited this written report and agrees with it. Electronically signed by: Carey Nguyen M.D. Narrative 02/19/2025 6:46 PM CDT EXAMINATION: CT head without contrast HISTORY: Sudden headache. TECHNIQUE: CT of the head was performed with images acquired from skull base to vertex without intravenous contrast. COMPARISON: CT from 11/11/2023 FINDINGS: There is no acute intracranial hemorrhage. Ventricles are of normal size and morphology. No mass effect or midline shift is present. The basilio-white matter differentiation is normal. The visualized portions of the orbits are normal. The visualized portions of the mastoids are normal. The visualized portions of the paranasal sinuses are normal. No fractures are identified. Procedure Note Carey Fiore MD - 02/19/2025 EXAMINATION: CT head without contrast HISTORY: Sudden headache. TECHNIQUE: CT of the head was performed with images acquired from skull base to vertex without intravenous contrast. COMPARISON: CT from 11/11/2023 FINDINGS: There is no acute intracranial hemorrhage. Ventricles are of normal size and morphology. No mass effect or midline shift is present. The basilio-white matter differentiation is normal. The visualized portions of the orbits are normal. The visualized portions of the mastoids are normal. The visualized portions of the paranasal sinuses are normal. No fractures are identified. IMPRESSION: No intracranial hemorrhage or large acute edematous infarct. Dictated by: John Morrow MD The radiology attending physician has personally reviewed this study, and had reviewed and/or edited this written report and agrees with it. Electronically signed by: Carey Nguyen M.D. [facility] Lois Freedman MD IMG CT PROCEDURES Final Result * [place] CRITICAL CARE ILL/INJURED PATIENT INIT 30-74 MIN (02/19/2025 5:47 PM CDT) Narrative Laci Vo MD - 02/19/2025 5:47 PM CDT Laci Vo MD 02/19/2025 11:18 PM Critical Care Performed by: Laci Vo MD Authorized by: Laci Vo MD Critical care provider statement: As reflected in the history, physical exam, orders, notes, and/or MDM, I was personally present while the patient was critically ill and provided critical care services for 41 minutes, excluding time involved in separately billable procedures. Critical care was necessary to treat or prevent imminent or life-threatening deterioration of the following condition(s): unstable vital signs hypertensive crisis Ovarian torsion rule out Critical care was time spent by me providing the following: frequent neurologic exams initiation and active titration of vasoactive medications acute pain control I provided emergent necessary [...] time documenting in the medical record. us Laci Vo MD IN CLINIC/BEDSIDE ORDERABLES Final Result * eGFR (02/19/2025 5:47 PM CDT) eGFR >90 >=60 mL/min/1. 73 [...] interpretive data was last reviewed 2021. Blood 02/19/2025 5:47 PM CDT 02/19/2025 5:55 PM CDT us Devante Freedman MD LAB BLOOD ORDERABLES Fi nal Result [facility] [place] [address] * Differential, auto (02/19/2025 5:47 PM CDT) Neutrophil abs 4.35 1.50 - 6.50 K/cumm Imm gran abs 0.02 0.00 - 0.10 K/cumm [facility] Lymphocyte abs 2.31 0.80 - 3.30 K/cumm [facility] Monocyte abs 0.56 0.20 - 0.80 K/cumm [facility] Eosinophil abs 0.14 0.00 - 0.50 K/cumm [facility] Basophil abs 0.03 0.00 - 0.10 K/cumm [facility] Neutrophil pct 58.6 % [facility] Comment: Interpretive Data Percent cell count reference ranges are not reported, since discordance with absolute values may lead to misinterpretation of CBC data. Current Interpretive Data was last revised on 2017. Imm gran pct 0.3 % [facility] Comment: Interpretive Data Percent cell count reference ranges are not reported, since discordance with absolute values may lead to misinterpretation of CBC data. Current Interpretive Data was last revised on 2017. Lymphocyte pct 31.2 % [facility] Comment: Interpretive Data Percent cell count reference ranges are not reported, since discordance with absolute values may lead to misinterpretation of CBC data. Current Interpretive Data was last revised on 2017. Monocyte pct 7.6 % [facility] Comment: Interpretive Data Percent cell count reference ranges are not reported, since discordance with absolute values may lead to misinterpretation of CBC data. Current Interpretive Data was last revised on 2017. Eosinophil pct 1.9 % [facility] Comment: Interpretive Data Percent cell count reference ranges are not reported, since discordance with absolute values may lead to misinterpretation of CBC data. Current Interpretive Data was last revised on 2017. Basophil pct 0.4 % [facility] Comment: Interpretive Data Percent cell count reference ranges are not reported, since discordance with absolute values may lead to misinterpretation of CBC data. Current Interpretive Data was last revised on 2017. Blood 02/19/2025 5:47 PM CDT 02/19/2025 5:55 PM CDT Devante Freedman MD LAB BLOOD ORDERABLES Fi nal Result Performing Organization Address City/[facility]/ZIP Co de Phone Number [facility] [place] [address] * (ABNORMAL) CBC with auto differential (02/19/2025 5:47 PM CDT) WBC 7.41 3.80 - 9.90 K/cumm Hgb 14.9 11.9 - 15.5 g/dL [facility] Hct 41.1 35.6 - 45.5 % [facility] Plt 214 150 - 400 K/cumm [facility] MPV 9.4 9.1 - 12.3 fL [facility] RBC 4.78 3.90 - 5.20 M/cumm [facility] MCV 86.0 81.3 - 96.4 fL [facility] MCH 31.2 27.1 - 33.3 pg [facility] MCHC 36.3(H) 32.3 - 35.7 g/dL [facility] RDW CV 12.6 11.1 - 14.9 % [facility] RDW SD 39.3 35.7 - 48.1 fL [facility] NRBC abs 0.00 0.00 - 0.01 K/cumm [facility] Blood 02/19/2025 5:47 PM CDT 02/19/2025 5:55 PM CDT Devante Freedman MD LAB BLOOD ORDERABLES Fi nal Result Performing Organization Address City/[facility]/ZIP Co de Phone Number [facility] [place] [address] * (ABNORMAL) Comprehensive metabolic panel (02/19/2025 5:47 PM CDT) Sodium 137 135 - 145 mmol/L Potassium, pl 4.1 3.3 - 4.9 mmol/L [facility] Chloride 105 97 - 110 mmol/L [facility] CO2 25 22 - 32 mmol/L [facility] Anion gap 7 2 - 15 mmol/L [facility] BUN 13 6 - 25 mg/dL [facility] Creatinine 0.70 0.60 - 1.10 mg/dL [facility] Glucose 75 70 - 199 mg/dL [facility] Comment: Interpretive Data Fasting glucose >/= [...] 2022. Calcium 9.4 8.5 - 10.3 mg/dL [facility] Bilirubin, total 0.4 0.1 - 1.2 mg/dL [facility] Protein, pl 7.6 6.5 - 8.5 g/dL [facility] Albumin 4.4 3.5 - 5.0 g/dL [facility] Alk phos 93 40 - 130 Units/L [facility] ALT 84(H) 7 - 45 Units/L [facility] AST 93(H) 10 - 45 Units/L [facility] Blood 02/19/2025 5:47 PM CDT 02/19/2025 5:55 PM CDT us Devante Freedman MD LAB BLOOD ORDERABLES Fi nal Result [facility] [place] [address] * Troponin I high-sensitivity series (baseline, 2hr, 4hr, 6hr) (02/19/2025 5:46 PM CDT) Trop I hs 7 <=17 ng/L Comment: Interpretive Data For further hscTnI resources including the diagnostic algorithm and an aid in interpretation, copy and paste this link: https://bjhlab.testcatalog.org/show/hsTrop-[email or web address] Current Interpretive Data last revised 2020. Blood 02/19/2025 5:46 PM CDT 02/19/2025 5:55 PM CDT us Devante Lois Freedman MD LAB BLOOD ORDERABLES Fi nal Result [facility] [place] [address] * Urinalysis reflex to microscopic (02/15/2025 11:53 PM CDT) Pathologist [facility] Color, ur Straw Yellow Clarity, ur Clear Clear [facility] Specific gravity, ur 1.007 1.003 - 1.030 [facility] pH, urine 6.0 [facility] Comment: Interpretive Data U rine pH is affected by diet, medications, systemic acid-base disturbances, and renal tubular function. pH may affect urinary stone formation. For example, urine pH below 6.0 may help reduce the tendency for calcium phosphate stones and pH greater than 6.0 may reduce the tendency for uric acid stone formation. Source: [facility] [employer] Current Interpretive Data was last revised on 2017 Protein, ur ql Negative Negative [facility] Glucose, ur ql Negative Negative [facility] Ketones, ur Negative Negative [facility] Bilirubin, ur Negative Negative [facility] Blood, ur Negative Negative [facility] Urobilinogen, ur <2.0 <2.0 mg/dL [facility] Nitrite, ur Negative Negative [facility] Leukocyte esterase, ur Negative Negative [facility] UA reflex comment Reflex conditions for microscopic UA not met. [facility] Urine 02/15/2025 11:5 3 PM CDT 02/15/2025 11:59 PM CDT us Mine Arias MD LAB URINE ORDERABLES Final Result [facility] PINTO [facility] [place] [address] * POCT hCG, urine (02/15/2025 11:49 PM CDT) HCG, ur, POC Negative Negative Lot Number [id number] QC Backgroud Clear Acceptable QC Control Line Acceptable Urine 02/15/2025 11:4 9 PM CDT us Mine Arias MD POINT OF CARE TEST OR DERABLES Final Result * eGFR (02/15/2025 11:44 PM CDT) eGFR >90 >=60 mL/min/1. [...] interpretive data was last reviewed 2021. Blood 02/15/2025 11:4 4 PM CDT 02/15/2025 11:58 PM CDT us Mine Arias MD LAB BLOOD ORDERABLES Final Result CHARLEEN Arias [facility] [place] [address] * (ABNORMAL) Differential, auto (02/15/2025 11:44 PM CDT) Neutrophil abs 6.35 1.50 - 6.50 K/cumm Imm gran abs 0.04 0.00 - 0.10 K/cumm [facility] Lymphocyte abs 2.80 0.80 - 3.30 K/cumm [facility] Monocyte abs 0.81(H) 0.20 - 0.80 K/cumm [facility] Eosinophil abs 0.10 0.00 - 0.50 K/cumm [facility] Basophil abs 0.05 0.00 - 0.10 K/cumm [facility] Neutrophil pct 62.5 % [facility] Comment: Interpretive Data Percent cell count reference ranges are not reported, since discordance with absolute values may lead to misinterpretation of CBC data. Current Interpretive Data was last revised on 2017. Imm gran pct 0.4 % [facility] Comment: Interpretive Data Percent cell count reference ranges are not reported, since discordance with absolute values may lead to misinterpretation of CBC data. Current Interpretive Data was last revised on 2017. Lymphocyte pct 27.6 % [facility] Comment: Interpretive Data Percent cell count reference ranges are not reported, since discordance with absolute values may lead to misinterpretation of CBC data. Current Interpretive Data was last revised on 2017. Monocyte pct 8.0 % [facility] Comment: Interpretive Data Percent cell count reference ranges are not reported, since discordance with absolute values may lead to misinterpretation of CBC data. Current Interpretive Data was last revised on 2017. Eosinophil pct 1.0 % [facility] Comment: Interpretive Data Percent cell count reference ranges are not reported, since discordance with absolute values may lead to misinterpretation of CBC data. Current Interpretive Data was last revised on 2017. Basophil pct 0.5 % [facility] Comment: Interpretive Data Percent cell count reference ranges are not reported, since discordance with absolute values may lead to misinterpretation of CBC data. Current Interpretive Data was last revised on 2017. Blood 02/15/2025 11:4 4 PM CDT 02/15/2025 11:58 PM CDT Mine Arias MD LAB BLOOD ORDERABLES Final Result [facility] [place] [address] * (ABNORMAL) CBC with auto differential (02/15/2025 11:44 PM CDT) Pathologist [facility] WBC 10.15(H) 3.80 - 9.90 K/cumm Hgb 15.7(H) 11.9 - 15.5 g/dL [facility] Hct 43.5 35.6 - 45.5 % [facility] Plt 229 150 - 400 K/cumm [facility] MPV 9.8 9.1 - 12.3 fL [facility] RBC 5.06 3.90 - 5.20 M/cumm [facility] MCV 86.0 81.3 - 96.4 fL [facility] MCH 31.0 27.1 - 33.3 pg [facility] MCHC 36.1(H) 32.3 - 35.7 g/dL [facility] RDW CV 12.6 11.1 - 14.9 % [facility] RDW SD 38.7 35.7 - 48.1 fL [facility] NRBC abs 0.00 0.00 - 0.01 K/cumm [facility] Blood Venous blood specimen / Unknown 02/15/2025 11:44 PM CDT 02/15/2025 11:58 PM CDT Mine Arias MD LAB BLOOD ORDERABLES Final Result [facility] [place] [address] * Lipase (02/15/2025 11:44 PM CDT) Pathologist [facility] Lipase 24 10 - 99 Units/L Blood Venous blood specimen / Unknown 02/15/2025 11:44 PM CDT 02/15/2025 11:58 PM CDT Mine Arias MD LAB BLOOD ORDERABLES Final Result [facility] [place] [address] * Comprehensive metabolic panel (02/15/2025 11:44 PM CDT) Pathologist [facility] Sodium 141 135 - 145 mmol/L Potassium, pl 3.7 3.3 - 4.9 mmol/L [facility] Chloride 105 97 - 110 mmol/L [facility] CO2 23 22 - 32 mmol/L [facility] Anion gap 13 2 - 15 mmol/L [facility] BUN 9 6 - 25 mg/dL [facility] Creatinine 0.63 0.60 - 1.10 mg/dL [facility] Glucose 79 70 - 199 mg/dL [facility] Comment: Interpretive Data Fasting glucose >/= [...] interpretive data was last revised 2022. Calcium 9.7 8.5 - 10.3 mg/dL [facility] Bilirubin, total 0.3 0.1 - 1.2 mg/dL [facility] Protein, pl 7.8 6.5 - 8.5 g/dL [facility] Albumin 4.4 3.5 - 5.0 g/dL [facility] Alk phos 97 40 - 130 Units/L [facility] ALT 44 7 - 45 Units/L [facility] AST 34 10 - 45 Units/L [facility] Blood 02/15/2025 11:4 4 PM CDT 02/15/2025 11:58 PM CDT us Mine Arias MD LAB BLOOD ORDERABLES Final Result Performing Organization Address City/[facility] Co de Phone Number [facility] [place] [address] * (ABNORMAL) Urinalysis reflex to microscopic (01/27/2025 5:33 AM CDT) [facility] Signature Color, ur Straw Yellow Clarity, ur Clear Clear [facility] Specific gravity, ur >1.042(H) 1.003 - 1.030 [facility] pH, urine 6.5 [facility] Comment: Interpretive Data U rine pH is affected by diet, medications, systemic acid-base disturbances, and renal tubular function. pH may affect urinary stone formation. For example, urine pH below 6.0 may help reduce the tendency for calcium phosphate stones and pH greater than 6.0 may reduce the tendency for uric acid stone formation. Source: [facility] Current Interpretive Data was last revised on 2017 Protein, ur ql 1+(A) Negative [facility] Glucose, ur ql Negative Negative [facility] Ketones, ur Negative Negative [facility] Bilirubin, ur Negative Negative [facility] Blood, ur Negative Negative [facility] Urobilinogen, ur <2.0 <2.0 mg/dL [facility] Nitrite, ur Negative Negative [facility] Leukocyte esterase, ur Negative Negative [facility] UA reflex comment Reflex to microscopic UA will be performed. [facility] Urine 01/27/2025 5:3 3 AM CDT 01/27/2025 5:40 AM CDT us Evan Velazquez MD LAB URINE ORDERABLES Final Resul t Performing Organization Address City/[facility] Co de Phone Number [facility] [place] [address] * (ABNORMAL) Urinalysis, microscopic only (01/27/2025 5:33 AM CDT) WBC, ur 0-5 0 - 5 /HPF RBC, ur 0-2 0 - 2 /HPF [facility] Epithelial cells, squamous, ur 1-5 0 - 5 /HPF [facility] Bacteria, ur Trace(A) [facility] Mucous, ur Present(A) [facility] Urine 01/27/2025 5:33 AM CDT 01/27/2025 5:40 AM CDT Evan Velazquez MD LAB URINE ORDERABLES Final Resul t Performing Organization Address [facility] de Phone Number [facility] [place] [employer] [address] * aPTT (01/27/2025 5:33 AM CDT) aPTT 33 28 - 38 sec Comment: Interpretive Data Heparin therapeutic range: 66.0 - 100.0 seconds. Range based on correlation with therapeutic heparin activity range of 0.3 - 0.7 Units/mL. Current interpretive data was last revised on 2023. Blood 01/27/2025 5:33 AM CDT 01/27/2025 5:40 AM CDT us Evan Velazquez MD LAB BLOOD ORDERABLES Final Resul t Performing Organization Address [facility] de Phone Number [facility] [place] [address] * (ABNORMAL) Protime-INR (01/27/2025 5:33 AM CDT) PT 14.2(H) 9.7 - 13.0 sec INR 1.31(H) 0.90 - 1.20 [facility] Comment: Interpretive data Oral anticoagulant therapeutic ranges: Venous thromboembolism prophylaxis or treatment: 2.0-3.0 CARDIOLOGY Standard range: 2.0-3.0 High-intensity range: 2.5-3.5 Refer to indication-specific guidelines for appropriate target ranges for prosthetic heart valve replacement. Current interpretive data was last revised on 2019. Blood 01/27/2025 5:33 AM CDT 01/27/2025 5:40 AM CDT us Evan Velazquez MD LAB BLOOD ORDERABLES Final Resul t [facility]EN [facility] [place] [address] * POCT hCG, urine (01/27/2025 5:28 AM CDT) HCG, ur, POC Negative Negative Lot Number [id number] QC Backgroud Clear Acceptable QC Control Line Acceptable Urine 01/27/2025 5:28 AM CDT us Evan Velazquez MD POINT OF CARE TEST ORDERABLES Fi nal Result * CT Abdomen Pelvis W Contrast (01/27/2025 3:56 AM CDT) Anatomical Region Laterality Modality Body N/A Computed Tomogra phy 01/27/2025 4:48 AM CDT Impressions 01/27/2025 8:44 AM CDT 1. No findings to account for the patient's abdominal pain. 2. Hepatic steatosis. Dictated by: Olivia Lam MD The radiology attending physician has personally reviewed this study, and had reviewed and/or edited this written report and agrees with it. Electronically signed by: Tyrel Joya M.D. Narrative 01/27/2025 8:44 AM CDT EXAMINATION: Computed tomography of the abdomen and pelvis with intravenous contrast HISTORY: Severe left lower quadrant pain. TECHNIQUE: Transaxial computed tomographic images of the abdomen and pelvis were obtained with intravenous contrast according to the standard protocol after the uneventful administration of 93 mL Opti-Ray 350 intravenous contrast. COMPARISON: 10/31/2024 FINDINGS: Imaged lung bases are clear. No pneumothorax or pleural effusion. Imaged heart is normal in size without pericardial effusion. Diffuse hepatic steatosis. Cholecystectomy. No extrahepatic biliary ductal dilatation in keeping with reservoir effect. Portal, superior mesenteric, and splenic veins are patent. Spleen, pancreas, and adrenal glands are normal. Kidneys enhance symmetrically without hydronephrosis or nephrolithiasis. Bladder normal. Colonic diverticulosis without diverticulitis. No bowel obstruction. No ascites or pneumoperitoneum. Appendix normal. Follicles within the left ovary. Right ovary is not definitely identified. Abdominal aorta is mildly atherosclerotic but normal in caliber. No lymphadenopathy. Multilevel degenerative changes to the spine without suspicious osseous lesion Procedure Note Tyrel Joya MD - 01/27/2025 EXAMINATION: Computed tomography of the abdomen and pelvis with intravenous contrast HISTORY: Severe left lower quadrant pain. TECHNIQUE: Transaxial computed tomographic images of the abdomen and pelvis were obtained with intravenous contrast according to the standard protocol after the uneventful administration of 93 mL Opti-Ray 350 intravenous contrast. COMPARISON: 10/31/2024 FINDINGS: Imaged lung bases are clear. No pneumothorax or pleural effusion. Imaged heart is normal in size without pericardial effusion. Diffuse hepatic steatosis. Cholecystectomy. No extrahepatic biliary ductal dilatation in keeping with reservoir effect. Portal, superior mesenteric, and splenic veins are patent. Spleen, pancreas, and adrenal glands are normal. Kidneys enhance symmetrically without hydronephrosis or nephrolithiasis. Bladder normal. Colonic diverticulosis without diverticulitis. No bowel obstruction. No ascites or pneumoperitoneum. Appendix normal. Follicles within the left ovary. Right ovary is not definitely identified. Abdominal aorta is mildly atherosclerotic but normal in caliber. No lymphadenopathy. Multilevel degenerative changes to the spine without suspicious osseous lesion IMPRESSION: 1. No findings to account for the patient's abdominal pain. 2. Hepatic steatosis. Dictated by: Olivia Lam MD The radiology attending physician has personally reviewed this study, and had reviewed and/or edited this written report and agrees with it. Electronically signed by: Tyrel Joya M.D. Jorge Jerome MD IM CT PROCEDURES Final Result * Critical Result Callback Hematology (01/27/2025 3:05 AM CDT) Date Notified [id number] Time Notified 525 CHARLEEN PINTO TestName PTT,PT,TT CHARLEEN PINTO Called/Read Back Mishel PINTO Credentials RN CHARLEEN PINTO Called By YUE SINGH Blood 01/27/2025 3:05 AM CDT 01/27/2025 3:17 AM CDT Jorge Jerome MD LAB BLOOD ORDERABLES Final Res ult Performing Organization Address [facility] Co de Phone Number [facility] [place] [address] * aPTT (01/27/2025 3:05 AM CDT) aPTT See Comment 28 - 38 sec Comment: Interpretive Data Heparin therapeutic range: 66.0 - 100.0 seconds. Range based on correlation with therapeutic heparin activity range of 0.3 - 0.7 Units/mL. Current interpretive data was last revised on 2023. No clot detected in sample Repeated and verified - [id number] - 01/27/25, 4:41 AM Repeated and verified. Credited: Sample investigated and is suggestive of an improper collection (e.g., IV fluid contamination, improper tube type). Deleted at the Request of Mishel MOHAN on 01/27/2025 05:30:06 CDT by YUE . Blood 01/27/2025 3:05 AM CDT 01/27/2025 3:17 AM CDT Jorge Jerome MD LAB BLOOD ORDERABLES Edited Re sult - Final Performing Organization Address City/[facility]/ZIP Co de Phone Number [facility] [place] [address] * Thrombin time (01/27/2025 3:05 AM CDT) Thrombin time See Comment 10.0 - 15.0 sec Comment: Repeated and verified. Credited: Sample investigated and is suggestive of an improper collection (e.g., IV fluid contamination, improper tube type). Deleted at the Request of Mishel MOHAN on 01/27/2025 05:30:06 CDT by YUE . Blood 01/27/2025 3:05 AM CDT 01/27/2025 3:17 AM CDT Jorge Jerome MD LAB BLOOD ORDERABLES Edited Re sult - Final Performing Organization Address [facility] de Phone Number [facility] [place] [address] * Protime-INR (01/27/2025 3:05 AM CDT) PT See Comment 9.7 - 13.0 sec Comment: Repeated and verified. Credited: Sample investigated and is suggestive of an improper collection (e.g., IV fluid contamination, improper tube type). Deleted at the Request of Mishel MOHAN on 01/27/2025 05:30:06 CDT by YUE . INR See Comment 0.90 - 1.20 [facility] Comment: Interpretive data Oral anticoagulant therapeutic ranges: Venous thromboembolism prophylaxis or treatment: 2.0-3.0 CARDIOLOGY Standard range: 2.0-3.0 High-intensity range: 2.5-3.5 Refer to indication-specific guidelines for appropriate target ranges for prosthetic heart valve replacement. Current interpretive data was last revised on 2019. Repeated and verified. Repeated and verified. Credited: Sample investigated and is suggestive of an improper collection (e.g., IV fluid contamination, improper tube type). Deleted at the Request of Mishel MOHAN on 01/27/2025 05:30:06 CDT by YUE . Blood 01/27/2025 3:05 AM CDT 01/27/2025 3:17 AM CDT us Jorge Jerome MD LAB BLOOD ORDERABLES Edited Re sult - Final Performing Organization Address [facility] Co de Phone Number [facility] [place] [employer] [place] [address] * Type and screen (01/27/2025 3:05 AM CDT) Jorge, indirect Negative ABO Rh B Positive [facility] Blood 01/27/2025 3:05 AM CDT 01/27/2025 3:23 AM CDT Narrative [facility] - 01/27/2025 4:11 AM CDT Has the patient had Daratumumab or Isatuximab in the past 6 months?->Unknown Jorge Jerome MD LAB BLOOD BANK TEST ORDERABLES Final Result Performing Organization Address [facility]/ZIP Co de Phone Number [facility] [place] [address] * eGFR (01/27/2025 2:47 AM CDT) Pathologist [facility] eGFR >90 >=60 [...] interpretive data was last reviewed 2021. Blood 01/27/2025 2:47 AM CDT 01/27/2025 2:59 AM CDT Summer Masters MD LAB BLOOD ORDERABLES Sandra l Result Performing Organization Address City/[facility]/ZIP Co de Phone Number [facility] [place] [address] * Differential, auto (01/27/2025 2:47 AM CDT) Neutrophil abs 5.16 1.50 - 6.50 K/cumm Imm gran abs 0.02 0.00 - 0.10 K/cumm [facility] Lymphocyte abs 2.32 0.80 - 3.30 K/cumm [facility] Monocyte abs 0.76 0.20 - 0.80 K/cumm [facility] Eosinophil abs 0.09 0.00 - 0.50 K/cumm [facility] Basophil abs 0.05 0.00 - 0.10 K/cumm [facility] Neutrophil pct 61.5 % [facility] Comment: Interpretive Data Percent cell count reference ranges are not reported, since discordance with absolute values may lead to misinterpretation of CBC data. Current Interpretive Data was last revised on 2017. Imm gran pct 0.2 % [facility] Comment: Interpretive Data Percent cell count reference ranges are not reported, since discordance with absolute values may lead to misinterpretation of CBC data. Current Interpretive Data was last revised on 2017. Lymphocyte pct 27.6 % [facility] Comment: Interpretive Data Percent cell count reference ranges are not reported, since discordance with absolute values may lead to misinterpretation of CBC data. Current Interpretive Data was last revised on 2017. Monocyte pct 9.0 % [facility] Comment: Interpretive Data Percent cell count reference ranges are not reported, since discordance with absolute values may lead to misinterpretation of CBC data. Current Interpretive Data was last revised on 2017. Eosinophil pct 1.1 % [facility] Comment: Interpretive Data Percent cell count reference ranges are not reported, since discordance with absolute values may lead to misinterpretation of CBC data. Current Interpretive Data was last revised on 2017. Basophil pct 0.6 % [facility] Comment: Interpretive Data Percent cell count reference ranges are not reported, since discordance with absolute values may lead to misinterpretation of CBC data. Current Interpretive Data was last revised on 2017. Blood 01/27/2025 2:47 AM CDT 01/27/2025 2:59 AM CDT Evan Velazquez MD LAB BLOOD ORDERABLES Final Resul t [facility] [place] [address] * CBC with auto differential (01/27/2025 2:47 AM CDT) [facility] WBC 8.40 3.80 - 9.90 K/cumm Hgb 15.4 11.9 - 15.5 g/dL [facility] Hct 43.1 35.6 - 45.5 % [facility] Plt 264 150 - 400 K/cumm [facility] MPV 9.6 9.1 - 12.3 fL [facility] RBC 5.02 3.90 - 5.20 M/cumm [facility] MCV 85.9 81.3 - 96.4 fL [facility] MCH 30.7 27.1 - 33.3 pg [facility] MCHC 35.7 32.3 - 35.7 g/dL [facility] RDW CV 12.8 11.1 - 14.9 % [facility] RDW SD 40.1 35.7 - 48.1 fL [facility] NRBC abs 0.00 0.00 - 0.01 K/cumm [facility] Blood Venous blood specimen / Unknown 01/27/2025 2:47 AM CDT 01/27/2025 2:59 AM CDT Evan Velazquez MD LAB BLOOD ORDERABLES Final Resul t [facility] [place] [address] * (ABNORMAL) Comprehensive metabolic panel (01/27/2025 2:47 AM CDT) Pathologist [facility] Sodium 139 135 - 145 mmol/L Potassium, pl 3.5 3.3 - 4.9 mmol/L [facility] Chloride 104 97 - 110 mmol/L [facility] CO2 22 22 - 32 mmol/L [facility] Anion gap 13 2 - 15 mmol/L [facility] BUN 10 6 - 25 mg/dL [facility] Creatinine 0.68 0.60 - 1.10 mg/dL [facility] Glucose 99 70 - 199 mg/dL [facility] Comment: Interpretive Data Fasting glucose >/= [...] interpretive data was last revised 2022. Calcium 9.3 8.5 - 10.3 mg/dL [facility] Bilirubin, total 0.5 0.1 - 1.2 mg/dL [facility] Protein, pl 8.3 6.5 - 8.5 g/dL [facility] Albumin 4.6 3.5 - 5.0 g/dL [facility] Alk phos 105 40 - 130 Units/L [facility] ALT 67(H) 7 - 45 Units/L [facility] AST 55(H) 10 - 45 Units/L [facility] Blood 01/27/2025 2:47 AM CDT 01/27/2025 2:59 AM CDT us Evan Velazquez MD LAB BLOOD ORDERABLES Final Resul t [facility] [place] [address] from Last 3 Months Insurance [facility] CHOICE [place] [address] [address] [address] [facility] Advance Directives For more information, please contact: [phone] * Full Code (Latest Code Status on File) Date Activated Date Inactivated Comments 08/15/2022 3:10 PM 08/18/2022 6:09 PM Care Teams Laboratory Director Relationship Specialty Start Date End Date Lucas Carter DO PCP - General Internal Medicine 08/15/22
--- OUTSIDE RECORDS SUMMARY | 2025-02-21 18:36 | XMS_ITS | Encounter Summary ---
Author Organization [facility] Healthcare Address [address] [place] [address] Care Team Providers Care Director Home Name Role Phone Lucas Carter DO Primary Care Provider [phone]- [phone] Reason for Visit * Reason Comments Hypertension Encounter Details Date Type Department Care Team (Late st Contact Info) Description 02/19/2025 5:24 PM CDT - 02/19/2025 11:02 PM CDT Emergency [facility] Emergency Department [address] [place] [address] Laci Vo MD [address] [place] [address] Hypertensive urgency (Primary Dx); Cystic disease of ovary; Abdominal pain Discharge Disposition: Discharge to home or self care Social History Tobacco Use Types Packs/Day Years Used Date Smoking Tobacco: Every Day Cigarettes 0.8 33.3 Started: 11/11/1991 Smokeless Tobacco: Never Alcohol Use [...] on file 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 Our evaluation including labs, imaging, and exam was reassuring for a non emergency cause of your symptoms. Please follow up with the outpatient gynecology clinic for the cystic ovarian pain. Follow up with your primary care doctor about your hypertensive urgency episodes. You can take ibuprofen and acetaminophen interchangeably every 4-6 hours as needed for pain within dosing recommendations. We have prescribed you Percocet 5 mg for breakthrough pain. Please only use this medicine if over the counter meds do not help your pain and please use sparingly. Return to the ED if you have concerns for serious illness. * Attachments The following attachments cannot be sent through Care Everywhere. 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 ibuprofen 200 mg tab/cap Take 2 tablet/capsule (400 mg total) by mouth every 6 (six) hours as needed for pain losartan (COZAAR) 50 mg tabletIndications:hy pertension Take 1 tablet (50 mg total) by mouth 2 (two) times a day meloxicam (MOBIC) 15 mg tablet TAKE 1 TABLET(15 MG) BY MOUTH DAILY 30 tablet 11/23/2024 MULTIVIT-MINERALS/FE RROUS FUM (MULTI VITAMIN ORAL)Indications:hea lth Take 1 tablet by mouth 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 nebivoloL (BYSTOLIC) 10 mg tabletIndications:hy pertension Take 1 tablet (10 mg total) by mouth every other day 01/03/2024 omeprazole (PriLOSEC) 20 mg capsuleIndications:T reatment of Non-Bleeding Gastric Disorder Take 1 capsule (20 mg total) by mouth 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 ondansetron ODT (ZOFRAN-ODT) 4 mg disintegrating tablet Take 1 tablet (4 mg total) by mouth every 8 (eight) hours as needed for nausea or vomiting 20 tablet 08/10/2023 oxyCODONE-acetaminop hen (PERCOCET) 5-325 mg per tabletIndications:Pa in Take 1 tablet by mouth every 8 (eight) hours as needed for pain for up to 3 days 9 tablet 02/19/2025 pregabalin (LYRICA) 150 mg capsule Take 1 capsule (150 mg total) by mouth nightly 90 capsule 02/18/2025 documented as of this encounter Ordered Prescriptions Prescription Sig Dispense Quantity Refills Last Filled Start Date End Date oxyCODONE-acetamin ophen (PERCOCET) 5-325 mg per tabletIndications: Pain Take 1 tablet by mouth every 8 (eight) hours as needed for pain for up to 3 days 9 tablet 02/19/2025 02/22/2025 documented in this encounter Discharge Disposition Disposition Code Departure Means Destination Comment s Discharge to home or self care documented in this encounter ED Notes * Apoorva Roberson RN - 02/19/2025 5:24 PM CDT Bed: ED2-17 Expected date: 02/19/25 Expected time: 3:40 PM Means of arrival: Car Comments: Apoorva Roberson RN 02/19/25 1724 * Kalpana Nava RN - 02/19/2025 4:24 PM CDT Pt to ED from OBGY outpt clinic for HTN. She is here because she has an ovary that is twisting. She had a hysterectomy where they removed her uterus, both fallopian tubes, and right ovary. Her left ovary has a bunch of large cysts causing it to flip and causing her BP to rise. BP in triage is 221/150. She is compliant on 50mg losartan BID, 25mg hydrochlorothiazide, 10mg amlodipine BID, and 10mg bystalic BID. Pt is now seeing floaters in bilateral eyes, headache, dizziness when ambulating. Of note, she was admitted 02/15/25 for a hemorrhagic ovarian cyst where they were c/f torsion at that time. documented in this encounter Miscellaneous Notes * ED Procedure Note - Laci Vo MD - 02/19/2025 7:20 PM CDTAssociated Order(s): ECG 12 lead Procedure ECG 12 lead Date/Time: 02/19/2025 7:20 PM Performed by: Laci Vo MD Authorized by: Devante Freedman MD Rate: ECG rate: Rate 67, narrow complex, regular, sinus, no STEMI Laci Vo MD 02/19/251919 * ED Procedure Note - Laci Vo MD - 02/19/2025 5:47 PM CDTAssociated Order(s): Critical Care Procedure Critical Care Performed by: Laci Vo MD Authorized by: Laci Vo MD Critical care provider statement: As reflected in the history, physical exam, orders, notes, and/or MDM, I was personally present while the patient was critically ill and provided critical care services for 41 minutes, excluding timeinvolved in separately billable procedures. Critical care was necessary to treat or prevent imminent or life- threatening deterioration of the following condition(s): unstable vital [...] spent time documenting in the medical record. Laci Vo MD 02/19/252317 * ED Pre-Arrival Note - Ayla Blake RN - 02/19/2025 3:41 PM CDT Pre-Arrival Note Call [facility] where pt had outpatient appointment today. On arrival pt had significant pain due to kidney stones vs. Ovarian cyst. BP at clinic 220 systolic. Sending to ED for hypertension. Ayla Blake RN documented in this encounter Plan of Treatment [...] on stairs Contact your local community or [facility] [place] for information on exercise, fall prevention programs, or options for improving home safety. documented as of this encounter Procedures Procedure Name Priority Date/Time Associated Diagnosis Comments TROPONIN I HIGH-SENSITIVITY 4-HOUR Timed 02/19/2025 9:24 PM CDT URINALYSIS AND REFLEX TO MICROSCOPIC AND CULTURE STAT 02/19/2025 8:42 PM CDT URINALYSIS, MICROSCOPIC ONLY STAT 02/19/2025 8:42 PM CDT TROPONIN I HIGH-SENSITIVITY 2-HOUR Timed 02/19/2025 8:41 PM CDT ECG 12-LEAD Routine 02/19/2025 7:20 PM CDT APTT STAT 02/19/2025 7:13 PM CDT TYPE AND SCREEN STAT 02/19/2025 7:13 PM CDT XR CHEST PA LATERAL 2 VIEWS ED 02/19/2025 6:[address] HEAD WO CONTRAST ED 02/19/2025 6 :23 PM CDT [place] CRITICAL CARE ILL/INJURED PATIENT INIT 30-74 MIN Routine 02/19/2025 5:47 PM CDT EGFR STAT 02/19/2025 5:47 PM CDT DIFFERENTIAL AUTO STAT 02/19/2025 5:4 7 PM CDT CBC WITH AUTO DIFFERENTIAL STAT 02/19/2025 5:47 PM CDT COMPREHENSIVE METABOLIC PANEL STAT 02/19/2025 5:47 PM CDT TROPONIN I HIGH-SENSITIVITY SERIES (BASELINE, 2HR, 4HR, 6HR) STAT 02/19/2025 5:46 PM CDT documented in this encounter Results * Troponin I high-sensitivity 4-hour (02/19/2025 9:24 PM CDT) [facility] Trop I hs 5 <=17 ng/L Comment: Interpretive Data For further hscTnI resources including the diagnostic algorithm and an aid in interpretation, copy and paste this link: https://bjhlab.testcatalog.org/show/hsTrop-1 Current Interpretive Data last revised 2020. Trop I hs delta -2 ng/L [facility] Trop I hs interp Insignificant [facility] Blood 02/19/2025 9:24 PM CDT 02/19/2025 9:50 PM CDT us Devante Lois Freedman MD LAB BLOOD ORDERABLES Fi nal Result [facility] Department [place] [address] * (ABNORMAL) Urinalysis, microscopic only (02/19/2025 8:42 PM CDT) WBC, ur 6-10(A) 0 - 5 /HPF RBC, ur 21-50(A) 0 - 2 /HPF [facility] Epithelial cells, squamous, ur 11-20(A) 0 - 5 /HPF [facility] Comment:Suggestive of contam ination. Consider recollection by clean catch. Mucous, ur Present(A) [facility] Culture Reflex Comment Reflex conditions for urine culture (WBC >10) not met. [facility] Urine, clean voided 02/19/2025 8:42 PM CDT 02/19/2025 8:49 PM CDT us Devante Lois Freedman MD LAB URINE ORDERABLES Fi nal Result [facility] [place] [address] * (ABNORMAL) Urinalysis reflex to microscopic and culture Urine, clean voided (02/19/2025 8:42 PM CDT) Color, ur Yellow Yellow Clarity, ur Cloudy(A) Clear [facility] Specific gravity, ur 1.030 1.003 - 1.030 [facility] pH, urine 6.0 [facility] Comment: Interpretive Data U rine pH is affected by diet, medications, systemic acid-base disturbances, and renal tubular function. pH may affect urinary stone formation. For example, urine pH below 6.0 may help reduce the tendency for calcium phosphate stones and pH greater than 6.0 may reduce the tendency for uric acid stone formation. Source: [facility] INFUSD Current Interpretive Data was last revised on 2017 Protein, ur ql Trace Negative [facility] Glucose, ur ql Negative Negative [facility] Ketones, ur Negative Negative [facility] Bilirubin, ur Negative Negative [facility] Blood, ur 2+(A) Negative [facility] Urobilinogen, ur <2.0 <2.0 mg/dL [facility] Nitrite, ur Negative Negative [facility] Leukocyte esterase, ur Negative Negative [facility] UA reflex comment Reflex to microscopic UA will be performed. [facility] Urine, clean voided 02/19/2025 8:42 PM CDT 02/19/2025 8:49 PM CDT Devante Freedman MD LAB MICROBIOLOGY - GENE RAL ORDERABLES Final Result Performing Organization Address [facility] de Phone Number [facility] [place] [address] * Troponin I high-sensitivity 2-hour (02/19/2025 8:41 PM CDT) Trop I hs 6 <=17 ng/L Comment: Interpretive Data For further hscTnI resources including the diagnostic algorithm and an aid in interpretation, copy and paste this link: https://bjhlab.testcatalog.org/show/hsTrop-1 Current Interpretive Data last revised 2020. Trop I hs delta -1 ng/L [facility] Trop I hs interp Insignificant [facility] Blood 02/19/2025 8:41 PM CDT 02/19/2025 8:53 PM CDT Devante Freedman MD LAB BLOOD ORDERABLES Fi nal Result Performing Organization Address [facility] de Phone Number [facility] [place] [address] * ECG 12-LEAD (02/19/2025 7:20 PM CDT) Narrative [facility] - 02/19/2025 7:20 PM CDT Laci Vo MD 02/19/2025 7:20 PM ECG 12 lead Date/Time: 02/19/2025 7:20 PM Performed by: Laci Vo MD Authorized by: Devante Freedman MD Rate: ECG rate: Rate 67, narrow complex, regular, sinus, no STEMI Devante Freedman MD ECG ORDERABLES Final R esult Performing Organization Address [facility] Co de Phone Number [facility] * aPTT (02/19/2025 7:13 PM CDT) aPTT [...] ORDERABLES Fi nal Result Performing Organization Address [facility] Co de Phone Number [facility] Department [place] [address] * Type and screen (02/19/2025 7:13 PM CDT) ABO Rh B Positive Jorge, indirect Negative [facility] Blood 02/19/2025 7:13 PM CDT 02/19/2025 7:31 PM CDT Narrative [facility] - 02/19/2025 8:27 PM CDT Has the patient had Daratumumab or Isatuximab in the past 6 months?->Unknown Devante Freedman MD LAB BLOOD BANK TEST ORD ERABLES Final Result Performing Organization Address [facility] Co de Phone Number [facility] Department [place] [address] * XR Chest PA Lateral 2 Views [...] it. Electronically signed by: Piedad Galo M.D. [facility] Lois Freedman MD IMG XR PROCEDURES Final [...] it. Electronically signed by: Carey Nguyen M.D. [facility] Lois Freedman MD IMG CT PROCEDURES Final Result * [place] CRITICAL CARE ILL/INJURED PATIENT INIT 30-74 MIN [...] MD LAB BLOOD ORDERABLES Fi nal Result [facility] [place] [address] * Differential, auto (02/19/2025 5:47 PM CDT) Neutrophil abs 4.35 1.50 - 6.50 K/cumm Imm gran abs 0.02 0.00 - 0.10 K/cumm [facility] Lymphocyte abs 2.31 0.80 - 3.30 K/cumm [facility] Monocyte abs 0.56 0.20 - 0.80 K/cumm [facility] Eosinophil abs 0.14 0.00 - 0.50 K/cumm [facility] Basophil abs 0.03 0.00 - 0.10 K/cumm [facility] Neutrophil pct 58.6 % [facility] Comment: Interpretive [...] revised on 2017. Lymphocyte pct 31.2 % [facility] Comment: Interpretive Data Percent cell count reference ranges are not reported, since discordance with absolute values may lead to misinterpretation of CBC data. Current Interpretive Data was last revised on 2017. Monocyte pct 7.6 % [facility] Comment: Interpretive Data Percent cell count reference ranges are not reported, since discordance with absolute values may lead to misinterpretation of CBC data. Current Interpretive Data was last revised on 2017. Eosinophil pct 1.9 % [facility] Comment: Interpretive Data Percent cell count reference ranges are not reported, since discordance with absolute values may lead to misinterpretation of CBC data. Current Interpretive Data was last revised on 2017. Basophil pct 0.4 % [facility] Comment: Interpretive Data Percent cell count reference ranges are not reported, since discordance with absolute values may lead to misinterpretation of CBC data. Current Interpretive Data was last revised on 2017. Blood 02/19/2025 5:47 PM CDT 02/19/2025 5:55 PM CDT Devante Freedman MD LAB BLOOD ORDERABLES Fi nal Result Performing Organization Address [facility]/ZIP Co de Phone Number [facility] Department [place] [address] * (ABNORMAL) CBC with auto differential (02/19/2025 5:47 PM CDT) Pathologist [facility] WBC 7.41 3.80 - 9.90 K/cumm Hgb 14.9 11.9 - 15.5 g/dL [facility] Hct 41.1 35.6 - 45.5 % [facility] Plt 214 150 - 400 K/cumm [facility] MPV 9.4 9.1 - 12.3 fL [facility] RBC 4.78 3.90 - 5.20 M/cumm [facility] MCV 86.0 81.3 - 96.4 fL [facility] MCH 31.2 27.1 - 33.3 pg [facility] MCHC 36.3(H) 32.3 - 35.7 g/dL [facility] RDW CV 12.6 11.1 - 14.9 % [facility] RDW SD 39.3 35.7 - 48.1 fL [facility] NRBC abs 0.00 0.00 - 0.01 K/cumm [facility] Blood 02/19/2025 5:47 PM CDT 02/19/2025 5:55 PM CDT Devante Freedman MD LAB BLOOD ORDERABLES Fi nal Result Performing Organization Address City/[facility]/ZIP Co de Phone Number [facility] [place] [address] * (ABNORMAL) Comprehensive metabolic panel (02/19/2025 5:47 PM CDT) Pathologist [facility] Sodium 137 135 - 145 mmol/L Potassium, pl 4.1 3.3 - 4.9 mmol/L [facility] Chloride 105 97 - 110 mmol/L [facility] CO2 25 22 - 32 mmol/L [facility] Anion gap 7 2 - 15 mmol/L [facility] BUN 13 6 - 25 mg/dL [facility] Creatinine 0.70 0.60 - 1.10 mg/dL [facility] Glucose 75 70 - 199 mg/dL [facility] [...] 2022. Calcium 9.4 8.5 - 10.3 mg/dL [facility] Bilirubin, total 0.4 0.1 - 1.2 mg/dL [facility] Protein, pl 7.6 6.5 - 8.5 g/dL [facility] Albumin 4.4 3.5 - 5.0 g/dL [facility] Alk phos 93 40 - 130 Units/L [facility] ALT 84(H) 7 - 45 Units/L [facility] AST 93(H) 10 - 45 Units/L [facility] Blood 02/19/2025 5:47 PM CDT 02/19/2025 5:55 PM CDT Devante Freedman MD LAB BLOOD ORDERABLES Fi nal Result [facility] [place] [address] * Troponin I high-sensitivity series (baseline, 2hr, [...] LAB BLOOD ORDERABLES Fi nal Result [facility] [place] [address] documented in this encounter Visit Diagnoses Diagnosis Hypertensive urgency- Primary Cystic disease of ovary Polycystic ovaries Abdominal pain Abdominal pain, unspecified site documented in this encounter Administered Medications Inactive Administered Medications - up to 3 most recent administrations Medication Order MAR Action Action Date Dose Rate Site acetaminophen (TYLENOL) tablet 1,000 mg 1,000 mg, oral, Once, On Sat02/19/25 at 2115, For 1 dose Given 02/19/2025 9:21 PM CDT 1,000 mg HYDROmorphone (DILAUDID) injection 1 mg 1 mg, intravenous, Administer over 2 Minutes, Once, On Sat02/19/25 at 1903, For 1 dose Given 02/19/2025 7:07 PM CDT 1 mg labetaloL (NORMODYNE,TRANDATE) injection 20 mg 20 mg, intravenous, at 120 mL/hr, Administer over 2 Minutes, Once, On Sat02/19/25 at 1748, For 1 dose Given 02/19/2025 6:03 PM CDT 20 mg 120 mL/hr labetaloL (NORMODYNE,TRANDATE) injection 20 mg 20 mg, intravenous, at 120 mL/hr, Administer over 2 Minutes, Once, On Sat02/19/25 at 1903, For 1 dose Given 02/19/2025 7:06 PM CDT 20 mg 120 mL/hr ondansetron (ZOFRAN) injection 4 mg 4 mg, intravenous, Administer over 2 Minutes, Once, On Sat02/19/25 at 1758, For 1 dose Given 02/19/2025 6:04 PM CDT 4 mg oxyCODONE (ROXICODONE) tablet 5 mg 5 mg, oral, Once, On Sat02/19/25 at 2115, For 1 dose, Indications: PainIndications:Pain Given 02/19/2025 9:20 PM CDT 5 mg documented in this encounter Active and Recently Administered Medications Times are shown in CDT. Scheduled Medication Order 02/17/2025 02/18/2025 02/19/2025 acetaminophen (TYLENOL) tablet 1,000 mg (COMPLETED) 1,000 mg, oral, Once, On Sat02/19/25 at 2115, For 1 dose 2120 (Given - Provid er: Siva Philip RN) HYDROmorphone (DILAUDID) injection 1 mg (COMPLETED) 1 mg, intravenous, Administer over 2 Minutes, Once, On Sat02/19/25 at 1903, For 1 dose 1906 (Given - Provid er: Siva Philip RN) labetaloL (NORMODYNE,TRANDATE) injection 20 mg (COMPLETED) 20 mg, intravenous, at 120 mL/hr, Administer over 2 Minutes, Once, On Sat02/19/25 at 1748, For 1 dose 1802 (Given - Provid er: Eric Thomas RN) labetaloL (NORMODYNE,TRANDATE) injection 20 mg (COMPLETED) 20 mg, intravenous, at 120 mL/hr, Administer over 2 Minutes, Once, On Sat02/19/25 at 1903, For 1 dose 1905 (Given - Provid er: Siva Philip RN) ondansetron (ZOFRAN) injection 4 mg (COMPLETED) 4 mg, intravenous, Administer over 2 Minutes, Once, On Sat02/19/25 at 1758, For 1 dose 1803 (Given - Provid er: Eric Thomas RN) oxyCODONE (ROXICODONE) tablet 5 mg (COMPLETED) 5 mg, oral, Once, On Sat02/19/25 at 211, For 1 dose, Indications: Pain 2119 (Given - Provid er: Siva Philip RN) documented in this encounter Orders Medications Ordered That Noe ht Not Have Been Administered Count Last Ordered Date First Ordered Date labetaloL (NORMODYNE,TRANDAT E) injection 40 mg 1 02/19/2025 documented in this encounter Care Teams Director Home Relationship Specialty Start Date End Date Lucas Carter DO PCP - General Internal Medicine 08/15/22 documented as of this encounter
--- OUTSIDE RECORDS SUMMARY | 2025-02-21 18:36 | XMS_ITS | Referral Summary ---
Author Organization [facility] Address [address] [place] [address] Care Team Providers Care Curtain Fitter Name Role Phone Guanakojasper Lucas Homero BELL Primary Care Provider [phone]- [phone] Encounters Date Type Department Care Team Description 02/19/2025 5:24 PM CDT - 02/19/2025 11:02 PM CDT Emergency [facility] Emergency Department [address] [place] [address] [phone] Laci Vo MD Hypertensive urgency (Primary Dx); Cystic disease of ovary; Abdominal pain Discharge Disposition: Discharge to home or self care 02/19/2025 3:15 PM CDT Office Visit [facility]st[facility]s [facility] 3rd Floor [address] [place] [address] Christina Torres MD Pelvic pain 02/16/2025 Orders Only [address] [phone] Olivia Caro MD Pain in female pelvis (Primary Dx) 02/15/2025 11:39 PM CDT - 02/16/2025 5:51 AM CDT Emergency [facility] Emergency Department [address] [place] [address] [phone] Mine Arias MD Hemorrhagic ovarian cyst (Primary Dx); Hypertension, unspecified type; Pelvic pain Discharge Disposition: Discharge to home or self care 01/27/2025 2:29 AM CDT - 01/27/2025 7:19 AM CDT Emergency [facility] Emergency Department [address] [place] [address] Evan Velazquez MD Pelvic pain (Primary Dx) Discharge Disposition: Discharge to home or self care from Last 3 Months Allergies Active Allergy Reactions Criticality Noted Date Comments Hydralazine Headache,Vomiting Low 01/21/2024 Ketorolac Hives,Itching Medium 10/17/2017 Tramadol Hives,Urticaria Medium 08/27/2016 Medications omeprazole (PriLOSEC) 20 mg capsuleIndications :Treatment of Non-Bleeding Gastric Disorder Take 1 capsule (20 mg total) by mouth chain carrier before breakfast Active MULTIVIT-MINERALS/ FERROUS FUM (MULTI VITAMIN ORAL)Indications:h ealth Take 1 tablet by mouth chain carrier before breakfast Active ondansetron ODT (ZOFRAN-ODT) [...] 1 tablet (25 mg total) by mouth chain carrier before breakfast Active nebivoloL (BYSTOLIC) 10 [...] on file Legal Sex Female 9:06 PM HR ADVISOR Gender Identity Female 10/01/2023 8:44 AM HR ADVISOR Sexual Orientation Straight 10/01/2023 8: 44 AM HR ADVISOR Last Filed Vital Signs Vital Sign Reading [...] 02/19/2025 4:29 PM CDT Plan of Treatment Not on file Goals [...] home safety. Medical Devices Implanted Type Area Top Polisher Device Identifier Shelf Expiration Date Model / [...] CONTRAST ED 02/19/2025 6 :23 PM CDT [place] CRITICAL CARE ILL/INJURED PATIENT INIT 30-74 MIN [...] 2020. Trop I hs delta -2 ng/L [facility] Trop I hs interp Insignificant [facility] Blood 02/19/2025 9:24 PM CDT 02/19/2025 9:50 PM CDT Devante Freedman MD LAB BLOOD ORDERABLES Fi nal Result CHARLEEN PINTO [facility] [place] [address] * (ABNORMAL) Urinalysis reflex to microscopic and culture Urine, clean voided (02/19/2025 8:42 PM CDT) Color, ur Yellow Yellow Clarity, ur Cloudy(A) Clear [facility] Specific gravity, ur 1.030 1.003 - 1.030 [facility] pH, urine 6.0 [facility] Comment: Interpretive Data U rine pH is affected by diet, medications, systemic acid-base disturbances, and renal tubular function. pH may affect urinary stone formation. For example, urine pH below 6.0 may help reduce the tendency for calcium phosphate stones and pH greater than 6.0 may reduce the tendency for uric acid stone formation. Source: [facility] Current Interpretive Data was last revised on 2017 Protein, ur ql Trace Negative [facility] Glucose, ur ql Negative Negative [facility] Ketones, ur Negative Negative [facility] Bilirubin, ur Negative Negative [facility] Blood, ur 2+(A) Negative [facility] Urobilinogen, ur <2.0 <2.0 mg/dL [facility] Nitrite, ur Negative Negative [facility] Leukocyte esterase, ur Negative Negative [facility] UA reflex comment Reflex to microscopic UA will be performed. [facility] Urine, clean voided 02/19/2025 8:42 PM CDT 02/19/2025 8:49 PM CDT Devante Freedman MD LAB MICROBIOLOGY - GENE RAL ORDERABLES Final Result CHARLEEN PINTO [facility] [place] [address] * (ABNORMAL) Urinalysis, microscopic only (02/19/2025 8:42 PM CDT) WBC, ur 6-10(A) 0 - 5 /HPF RBC, ur 21-50(A) 0 - 2 /HPF [facility] Epithelial cells, squamous, ur 11-20(A) 0 - 5 /HPF [facility] Comment:Suggestive of contam ination. Consider recollection by clean catch. Mucous, ur Present(A) [facility] Culture Reflex Comment Reflex conditions for urine culture (WBC >10) not met. [facility] Urine, clean voided 02/19/2025 8:42 PM CDT 02/19/2025 8:49 PM CDT Devante Freedman MD LAB URINE ORDERABLES Fi nal Result Performing Organization Address [facility] Co de Phone Number [facility] [place] [address] * Troponin I high-sensitivity 2-hour (02/19/2025 8:41 PM CDT) Trop I hs 6 <=17 ng/L Comment: Interpretive Data For further hscTnI resources including the diagnostic algorithm and an aid in interpretation, copy and paste this link: https://bjhlab.testcatalog.org/show/[email or web address] Current Interpretive Data last revised 2020. Trop I hs delta -1 ng/L [facility] Trop I hs interp Insignificant [facility] Blood 02/19/2025 8:41 PM CDT 02/19/2025 8:53 PM CDT Devante Freedman MD LAB BLOOD ORDERABLES Fi nal Result Performing Organization Address [facility]/ZIP Co de Phone Number [facility] [place] [address] * ECG 12-LEAD (02/19/2025 7:20 PM CDT) Narrative [facility] - 02/19/2025 7:20 PM CDT Laci Vo MD 02/19/2025 7:20 PM ECG 12 lead Date/Time: 02/19/2025 7:20 PM Performed by: Laci Vo MD Authorized by: Devante Freedman MD Rate: ECG rate: Rate 67, narrow complex, regular, sinus, no STEMI Devante Freedman MD ECG ORDERABLES Final R esult Performing Organization Address [facility] Co de Phone Number [facility] * aPTT (02/19/2025 7:13 PM CDT) aPTT [...] ORDERABLES Fi nal Result Performing Organization Address [facility] de Phone Number [facility] [place] [address] * Type and screen (02/19/2025 7:13 PM CDT) Pathologist [facility] ABO Rh B Positive Jorge, indirect Negative [facility] Blood 02/19/2025 7:13 PM CDT 02/19/2025 7:31 PM CDT Narrative [facility] - 02/19/2025 8:27 PM CDT Has the patient had Daratumumab or Isatuximab in the past 6 months?->Unknown Result [facility] Devante Freedman MD LAB BLOOD BANK TEST ORD ERABLES Final Result Performing Organization Address [facility] Co de Phone Number [facility] [place] [address] * XR Chest PA Lateral 2 Views [...] it. Electronically signed by: Carey Nguyen M.D. Devante Lois Freedman MD IM CT PROCEDURES Final Result * [place] CRITICAL CARE ILL/INJURED PATIENT INIT 30-74 MIN [...] MD LAB BLOOD ORDERABLES Fi nal Result [facility] One [facility] [place] [address] * Differential, auto (02/19/2025 5:47 PM CDT) Neutrophil abs 4.35 1.50 - 6.50 K/cumm Imm gran abs 0.02 0.00 - 0.10 K/cumm [facility] Lymphocyte abs 2.31 0.80 - 3.30 K/cumm [facility] Monocyte abs 0.56 0.20 - 0.80 K/cumm [facility] Eosinophil abs 0.14 0.00 - 0.50 K/cumm [facility] Basophil abs 0.03 0.00 - 0.10 K/cumm [facility] Neutrophil pct 58.6 % [facility] Comment: Interpretive Data Percent cell count reference ranges are not reported, since discordance with absolute values may lead to misinterpretation of CBC data. Current Interpretive Data was last revised on 2017. Imm gran pct 0.3 % [facility] Comment: Interpretive Data Percent cell count reference ranges are not reported, since discordance with absolute values may lead to misinterpretation of CBC data. Current Interpretive Data was last revised on 2017. Lymphocyte pct 31.2 % [facility] Comment: Interpretive Data Percent cell count reference ranges are not reported, since discordance with absolute values may lead to misinterpretation of CBC data. Current Interpretive Data was last revised on 2017. Monocyte pct 7.6 % [facility] Comment: Interpretive Data Percent cell count reference ranges are not reported, since discordance with absolute values may lead to misinterpretation of CBC data. Current Interpretive Data was last revised on 2017. Eosinophil pct 1.9 % [facility] Comment: Interpretive Data Percent cell count reference ranges are not reported, since discordance with absolute values may lead to misinterpretation of CBC data. Current Interpretive Data was last revised on 2017. Basophil pct 0.4 % [facility] Comment: Interpretive Data Percent cell count reference ranges are not reported, since discordance with absolute values may lead to misinterpretation of CBC data. Current Interpretive Data was last revised on 2017. Blood 02/19/2025 5:47 PM CDT 02/19/2025 5:55 PM CDT Devante Freedman MD LAB BLOOD ORDERABLES Fi nal Result Performing Organization Address City/[facility]/ZIP Co de Phone Number [facility] [place] [address] * (ABNORMAL) CBC with auto differential (02/19/2025 5:47 PM CDT) WBC 7.41 3.80 - 9.90 K/cumm Hgb 14.9 11.9 - 15.5 g/dL [facility] Hct 41.1 35.6 - 45.5 % [facility] Plt 214 150 - 400 K/cumm [facility] MPV 9.4 9.1 - 12.3 fL [facility] RBC 4.78 3.90 - 5.20 M/cumm [facility] MCV 86.0 81.3 - 96.4 fL [facility] MCH 31.2 27.1 - 33.3 pg [facility] MCHC 36.3(H) 32.3 - 35.7 g/dL [facility] RDW CV 12.6 11.1 - 14.9 % [facility] RDW SD 39.3 35.7 - 48.1 fL [facility] NRBC abs 0.00 0.00 - 0.01 K/cumm [facility] Blood 02/19/2025 5:47 PM CDT 02/19/2025 5:55 PM CDT Devante Freedman MD LAB BLOOD ORDERABLES Fi nal Result Performing Organization Address City/[facility]/ZIP Co de Phone Number [facility] [place] [address] * (ABNORMAL) Comprehensive metabolic panel (02/19/2025 5:47 PM CDT) Sodium 137 135 - 145 mmol/L Potassium, pl 4.1 3.3 - 4.9 mmol/L [facility] Chloride 105 97 - 110 mmol/L [facility] CO2 25 22 - 32 mmol/L [facility] Anion gap 7 2 - 15 mmol/L [facility] BUN 13 6 - 25 mg/dL [facility] Creatinine 0.70 0.60 - 1.10 mg/dL [facility] Glucose 75 70 - 199 mg/dL [facility] Comment: Interpretive Data Fasting glucose [...] 2022. Calcium 9.4 8.5 - 10.3 mg/dL [facility] Bilirubin, total 0.4 0.1 - 1.2 mg/dL [facility] Protein, pl 7.6 6.5 - 8.5 g/dL [facility] Albumin 4.4 3.5 - 5.0 g/dL [facility] Alk phos 93 40 - 130 Units/L [facility] ALT 84(H) 7 - 45 Units/L [facility] AST 93(H) 10 - 45 Units/L [facility] Blood 02/19/2025 5:47 PM CDT 02/19/2025 5:55 PM CDT us Devante Freedman MD LAB BLOOD ORDERABLES Fi nal Result [facility] One [facility] [place] [address] * Troponin I high-sensitivity series (baseline, 2hr, [...] MD LAB BLOOD ORDERABLES Fi nal Result [facility] One [facility] [place] [address] * Urinalysis reflex to microscopic (02/15/2025 11:53 PM CDT) Color, ur Straw Yellow Clarity, ur Clear Clear [facility] Specific gravity, ur 1.007 1.003 - 1.030 [facility] pH, urine 6.0 [facility] Comment: Interpretive Data U rine pH is affected by diet, medications, systemic acid-base disturbances, and renal tubular function. pH may affect urinary stone formation. For example, urine pH below 6.0 may help reduce the tendency for calcium phosphate stones and pH greater than 6.0 may reduce the tendency for uric acid stone formation. Source: [facility] Current Interpretive Data was last revised on 2017 Protein, ur ql Negative Negative [facility] Glucose, ur ql Negative Negative [facility] Ketones, ur Negative Negative [facility] Bilirubin, ur Negative Negative [facility] Blood, ur Negative Negative [facility] Urobilinogen, ur <2.0 <2.0 mg/dL [facility] Nitrite, ur Negative Negative [facility] Leukocyte esterase, ur Negative Negative [facility] UA reflex comment Reflex conditions for microscopic UA not met. [facility] Urine 02/15/2025 11:5 3 PM CDT 02/15/2025 11:59 PM CDT us Mine Arias MD LAB URINE ORDERABLES Final Result [facility] [place] [address] * POCT hCG, urine (02/15/2025 11:49 PM [...] MD LAB BLOOD ORDERABLES Final Result CHARLEEN [facility] [place] [address] * (ABNORMAL) Differential, auto (02/15/2025 11:44 PM CDT) Neutrophil abs 6.35 1.50 - 6.50 K/cumm Imm gran abs 0.04 0.00 - 0.10 K/cumm [facility] Lymphocyte abs 2.80 0.80 - 3.30 K/cumm [facility] Monocyte abs 0.81(H) 0.20 - 0.80 K/cumm [facility] Eosinophil abs 0.10 0.00 - 0.50 K/cumm [facility] Basophil abs 0.05 0.00 - 0.10 K/cumm [facility] Neutrophil pct 62.5 % [facility] Comment: Interpretive Data Percent cell count reference ranges are not reported, since discordance with absolute values may lead to misinterpretation of CBC data. Current Interpretive Data was last revised on 2017. Imm gran pct 0.4 % [facility] Comment: Interpretive Data Percent cell count reference ranges are not reported, since discordance with absolute values may lead to misinterpretation of CBC data. Current Interpretive Data was last revised on 2017. Lymphocyte pct 27.6 % [facility] Comment: Interpretive Data Percent cell count reference ranges are not reported, since discordance with absolute values may lead to misinterpretation of CBC data. Current Interpretive Data was last revised on 2017. Monocyte pct 8.0 % [facility] Comment: Interpretive Data Percent cell count reference ranges are not reported, since discordance with absolute values may lead to misinterpretation of CBC data. Current Interpretive Data was last revised on 2017. Eosinophil pct 1.0 % CERN[facility] Comment: Interpretive Data Percent cell count reference ranges are not reported, since discordance with absolute values may lead to misinterpretation of CBC data. Current Interpretive Data was last revised on 2017. Basophil pct 0.5 % [facility] Comment: Interpretive Data Percent cell count reference ranges are not reported, since discordance with absolute values may lead to misinterpretation of CBC data. Current Interpretive Data was last revised on 2017. Blood 02/15/2025 11:4 4 PM CDT 02/15/2025 11:58 PM CDT Mine Arias MD LAB BLOOD ORDERABLES Final Result [facility] [place] [address] * (ABNORMAL) CBC with auto differential (02/15/2025 11:44 PM CDT) WBC 10.15(H) 3.80 - 9.90 K/cumm Hgb 15.7(H) 11.9 - 15.5 g/dL [facility] Hct 43.5 35.6 - 45.5 % [facility] Plt 229 150 - 400 K/cumm [facility] MPV 9.8 9.1 - 12.3 fL [facility] RBC 5.06 3.90 - 5.20 M/cumm [facility] MCV 86.0 81.3 - 96.4 fL [facility] MCH 31.0 27.1 - 33.3 pg [facility] MCHC 36.1(H) 32.3 - 35.7 g/dL [facility] RDW CV 12.6 11.1 - 14.9 % [facility] RDW SD 38.7 35.7 - 48.1 fL [facility] NRBC abs 0.00 0.00 - 0.01 K/cumm [facility] Blood Venous blood specimen / Unknown 02/15/2025 11:44 PM CDT 02/15/2025 11:58 PM CDT Mine Arias MD LAB BLOOD ORDERABLES Final Result [facility] [place] [address] * Lipase (02/15/2025 11:44 PM CDT) Lipase 24 10 - 99 Units/L Blood Venous blood specimen / Unknown 02/15/2025 11:44 PM CDT 02/15/2025 11:58 PM CDT Mine Arias MD LAB BLOOD ORDERABLES Final Result [facility] One [facility] [place] [address] * Comprehensive metabolic panel (02/15/2025 11:44 PM CDT) Sodium 141 135 - 145 mmol/L Potassium, pl 3.7 3.3 - 4.9 mmol/L [facility] Chloride 105 97 - 110 mmol/L [facility] CO2 23 22 - 32 mmol/L [facility] Anion gap 13 2 - 15 mmol/L [facility] BUN 9 6 - 25 mg/dL [facility] Creatinine 0.63 0.60 - 1.10 mg/dL [facility] Glucose 79 70 - 199 mg/dL [facility] Comment: Interpretive Data Fasting glucose [...] 2022. Calcium 9.7 8.5 - 10.3 mg/dL [facility] Bilirubin, total 0.3 0.1 - 1.2 mg/dL [facility] Protein, pl 7.8 6.5 - 8.5 g/dL [facility] Albumin 4.4 3.5 - 5.0 g/dL [facility] Alk phos 97 40 - 130 Units/L [facility] ALT 44 7 - 45 Units/L [facility] AST 34 10 - 45 Units/L [facility] Blood 02/15/2025 11:4 4 PM CDT 02/15/2025 11:58 PM CDT us Mine Arias MD LAB BLOOD ORDERABLES Final Result Performing Organization Address [facility] Co de Phone Number [facility] [place] [address] * (ABNORMAL) Urinalysis reflex to microscopic (01/27/2025 5:33 AM CDT) Color, ur Straw Yellow Clarity, ur Clear Clear [facility] Specific gravity, ur >1.042(H) 1.003 - 1.030 [facility] pH, urine 6.5 [facility] Comment: Interpretive Data U rine pH is affected by diet, medications, systemic acid-base disturbances, and renal tubular function. pH may affect urinary stone formation. For example, urine pH below 6.0 may help reduce the tendency for calcium phosphate stones and pH greater than 6.0 may reduce the tendency for uric acid stone formation. Source: [facility] Current Interpretive Data was last revised on 2017 Protein, ur ql 1+(A) Negative [facility] Glucose, ur ql Negative Negative [facility] Ketones, ur Negative Negative [facility] Bilirubin, ur Negative Negative [facility] Blood, ur Negative Negative [facility] Urobilinogen, ur <2.0 <2.0 mg/dL [facility] Nitrite, ur Negative Negative [facility] Leukocyte esterase, ur Negative Negative [facility] UA reflex comment Reflex to microscopic UA will be performed. [facility] Urine 01/27/2025 5:33 AM CDT 01/27/2025 5:40 AM CDT us Evan Velazquez MD LAB URINE ORDERABLES Final Resul t Performing Organization Address [facility] Co de Phone Number [facility] [place] [address] * (ABNORMAL) Urinalysis, microscopic only (01/27/2025 5:33 AM CDT) WBC, ur 0-5 0 - 5 /HPF RBC, ur 0-2 0 - 2 /HPF [facility] Epithelial cells, squamous, ur 1-5 0 - 5 /HPF [facility] Bacteria, ur Trace(A) [facility] Mucous, ur Present(A) [facility] Urine 01/27/2025 5:33 AM CDT 01/27/2025 5:40 AM CDT Evan Velazquez MD LAB URINE ORDERABLES Final Resul t Performing Organization Address [facility] de Phone Number [facility] [place] [address] * aPTT (01/27/2025 5:33 AM CDT) Pathologist [facility] aPTT 33 28 - 38 sec Comment: Interpretive Data Heparin therapeutic range: 66.0 - 100.0 seconds. Range based on correlation with therapeutic heparin activity range of 0.3 - 0.7 Units/mL. Current interpretive data was last revised on 2023. Blood 01/27/2025 5:33 AM CDT 01/27/2025 5:40 AM CDT Evan Velazquez MD LAB BLOOD ORDERABLES Final Resul t Performing Organization Address [facility] de Phone Number [facility] [place] [address] * (ABNORMAL) Protime-INR (01/27/2025 5:33 AM CDT) Pathologist [facility] PT 14.2(H) 9.7 - 13.0 sec INR 1.31(H) 0.90 - 1.20 [facility] Comment: Interpretive data Oral anticoagulant therapeutic ranges: Venous thromboembolism prophylaxis or treatment: 2.0-3.0 CARDIOLOGY Standard range: 2.0-3.0 High-intensity range: 2.5-3.5 Refer to indication-specific guidelines for appropriate target ranges for prosthetic heart valve replacement. Current interpretive data was last revised on 2019. Blood 01/27/2025 5:33 AM CDT 01/27/2025 5:40 AM CDT us Evan Velazquez MD LAB BLOOD ORDERABLES Final Resul t CHARLEEN [facility] One [facility] [place] [address] * POCT hCG, urine (01/27/2025 5:28 AM CDT) HCG, ur, POC Negative Negative Lot Number [id number] QC Backgroud Clear Acceptable QC Control Line Acceptable Urine 01/27/2025 5:28 AM CDT Evan Velazquez MD POINT OF CARE TEST [...] by: Tyrel Joya M.D. Jorge Jerome MD IMG CT PROCEDURES Final Result * Critical Result Callback Hematology (01/27/2025 3:05 AM CDT) Date Notified [id number] Time Notified 525 CHARLEEN [facility] TestName PTT,PT,TT CHARLEEN PINTO Called/Read Back Mishel VILLASEÑOR [facility] Credentials KHADAR VILLASEÑOR [facility] Called By YUE SINGH Blood 01/27/2025 3:05 AM CDT 01/27/2025 3:17 AM CDT Jorge Jerome MD LAB BLOOD ORDERABLES Final Res ult Performing Organization Address [facility]/ZIP Co de Phone Number [facility] [place] [address] * aPTT (01/27/2025 3:05 AM CDT) aPTT See Comment 28 - 38 sec Comment: Interpretive Data Heparin therapeutic range: 66.0 - 100.0 seconds. Range based on correlation with therapeutic heparin activity range of 0.3 - 0.7 Units/mL. Current interpretive data was last revised on 2023. No clot detected in sample Repeated and verified - [id number] - 01/27/25, 4:41 AM Repeated and verified. Credited: Sample investigated and is suggestive of an improper collection (e.g., IV fluid contamination, improper tube type). Deleted at the Request of Mishel MOHAN on 01/27/2025 05:30:06 CDT by YUE . Blood 01/27/2025 3:05 AM CDT 01/27/2025 3:17 AM CDT Jorge Jerome MD LAB BLOOD ORDERABLES Edited Re sult - Final Performing Organization Address [facility]/ZIP Co de Phone Number [facility] [place] [address] * Thrombin time (01/27/2025 3:05 AM CDT) [...] Re sult - Final Performing Organization Address [facility] de Phone Number [facility] [place] [address] * Protime-INR (01/27/2025 3:05 AM CDT) PT See Comment 9.7 - 13.0 sec Comment: Repeated and verified. Credited: Sample investigated and is suggestive of an improper collection (e.g., IV fluid contamination, improper tube type). Deleted at the Request of Mishel MOHNA on 01/27/2025 05:30:06 CDT by YUE . INR See Comment 0.90 - 1.20 [facility] Comment: Interpretive data Oral anticoagulant therapeutic ranges: [...] Re sult - Final Performing Organization Address [facility]/ZIP Co de Phone Number [facility] [place] [address] * Type and screen (01/27/2025 3:05 AM CDT) Jorge, indirect Negative ABO Rh B Positive [facility] Blood 01/27/2025 3:05 AM CDT 01/27/2025 3:23 AM CDT Narrative [facility] - 01/27/2025 4:11 AM CDT Has the patient had Daratumumab or Isatuximab in the past 6 months?->Unknown us Jorge Jerome MD LAB BLOOD BANK TEST ORDERABLES Final Result [facility] One [facility] [place] [address] * eGFR (01/27/2025 2:47 AM CDT) eGFR >90 >=60 mL/min/1. 73 m2 [...] AM CDT 01/27/2025 2:59 AM CDT us Summer Masters MD LAB BLOOD ORDERABLES Sandra l Result [facility] One [facility] [place] [address] * Differential, auto (01/27/2025 2:47 AM CDT) Neutrophil abs 5.16 1.50 - 6.50 K/cumm Imm gran abs 0.02 0.00 - 0.10 K/cumm [facility] Lymphocyte abs 2.32 0.80 - 3.30 K/cumm [facility] Monocyte abs 0.76 0.20 - 0.80 K/cumm [facility] Eosinophil abs 0.09 0.00 - 0.50 K/cumm [facility] Basophil abs 0.05 0.00 - 0.10 K/cumm [facility] Neutrophil pct 61.5 % [facility] Comment: Interpretive Data Percent cell count reference ranges are not reported, since discordance with absolute values may lead to misinterpretation of CBC data. Current Interpretive Data was last revised on 2017. Imm gran pct 0.2 % [facility] Comment: Interpretive Data Percent cell count reference ranges are not reported, since discordance with absolute values may lead to misinterpretation of CBC data. Current Interpretive Data was last revised on 2017. Lymphocyte pct 27.6 % [facility] Comment: Interpretive Data Percent cell count reference ranges are not reported, since discordance with absolute values may lead to misinterpretation of CBC data. Current Interpretive Data was last revised on 2017. Monocyte pct 9.0 % [facility] Comment: Interpretive Data Percent cell count reference ranges are not reported, since discordance with absolute values may lead to misinterpretation of CBC data. Current Interpretive Data was last revised on 2017. Eosinophil pct 1.1 % [facility] Comment: Interpretive Data Percent cell count reference ranges are not reported, since discordance with absolute values may lead to misinterpretation of CBC data. Current Interpretive Data was last revised on 2017. Basophil pct 0.6 % [facility] Comment: Interpretive Data Percent cell count reference ranges are not reported, since discordance with absolute values may lead to misinterpretation of CBC data. Current Interpretive Data was last revised on 2017. Blood 01/27/2025 2:47 AM CDT 01/27/2025 2:59 AM CDT Evan Velazquez MD LAB BLOOD ORDERABLES Final Resul t Performing Organization Address City/[facility]/ZIP Co de Phone Number [facility] [place] [address] * CBC with auto differential (01/27/2025 2:47 AM CDT) WBC 8.40 3.80 - 9.90 K/cumm Hgb 15.4 11.9 - 15.5 g/dL [facility] Hct 43.1 35.6 - 45.5 % [facility] Plt 264 150 - 400 K/cumm [facility] MPV 9.6 9.1 - 12.3 fL [facility] RBC 5.02 3.90 - 5.20 M/cumm [facility] MCV 85.9 81.3 - 96.4 fL [facility] MCH 30.7 27.1 - 33.3 pg [facility] MCHC 35.7 32.3 - 35.7 g/dL [facility] RDW CV 12.8 11.1 - 14.9 % [facility] RDW SD 40.1 35.7 - 48.1 fL [facility] NRBC abs 0.00 0.00 - 0.01 K/cumm [facility] Blood Venous blood specimen / Unknown 01/27/2025 2:47 AM CDT 01/27/2025 2:59 AM CDT Evan Velazquez MD LAB BLOOD ORDERABLES Final Resul t Performing Organization Address City/[facility]/ZIP Co de Phone Number [facility] [place] [address] * (ABNORMAL) Comprehensive metabolic panel (01/27/2025 2:47 AM CDT) Sodium 139 135 - 145 mmol/L Potassium, pl 3.5 3.3 - 4.9 mmol/L [facility] Chloride 104 97 - 110 mmol/L [facility] CO2 22 22 - 32 mmol/L [facility] Anion gap 13 2 - 15 mmol/L [facility] BUN 10 6 - 25 mg/dL [facility] Creatinine 0.68 0.60 - 1.10 mg/dL [facility] Glucose 99 70 - 199 mg/dL [facility] Comment: Interpretive Data Fasting glucose [...] 2022. Calcium 9.3 8.5 - 10.3 mg/dL [facility] Bilirubin, total 0.5 0.1 - 1.2 mg/dL [facility] Protein, pl 8.3 6.5 - 8.5 g/dL [facility] Albumin 4.6 3.5 - 5.0 g/dL [facility] Alk phos 105 40 - 130 Units/L [facility] ALT 67(H) 7 - 45 Units/L [facility] AST 55(H) 10 - 45 Units/L [facility] Blood 01/27/2025 2:47 AM CDT 01/27/2025 2:59 AM CDT us Evan Velazquez MD LAB BLOOD ORDERABLES Final Resul t [facility] One [facility] Department [place] [address] from Last 3 Months Insurance [facility] CHOICE [facility] HMO/PPO Address: [address] [address] [place], [place] [id number] [place] [address] [facility] Advance Directives For more information, please contact: [phone] * Full Code (Latest Code Status on File) Date Activated Date Inactivated Comments 08/15/2022 3:10 PM 08/18/2022 6:09 PM Care Teams Curtain Fitter Relationship Specialty Start Date End Date Lucas Carter DO PCP - General Internal Medicine 08/15/22
--- OUTSIDE RECORDS SUMMARY | 2025-02-21 18:37 | XMS_ITS | Clinical Summary ---
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 This disclosure is being madepursuant to the Care Everywhere program and may not contain all information available regarding this patient. 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 Gender Identity Not on file Sexual [...] SCREENING 1979 LIPID TESTING 1979 MAMMOGRAM 1979 HIV SCREENING 1994 DTAP/TDAP/TD VACCINES (1 - Tdap) 1998 HEPATITIS B VACCINE (1 of 3 - 19+ 3-dose series) 1998 PNEUMOCOCCAL VACCINE (1 of 2 - PCV) 1998 PAP SMEAR 02/26/2000 HPV VACCINE (1 - 3-dose SCDM series) 2006 COVID-19 VACCINE (1 - 2023- season) 2024 DEPRESSION SCREENING 08/12/2024 INFLUENZA VACCINE (#1) 2025 06/24/2015, 2014 SCREENING FOR DIABETES 02/02/2027 , 12/24/2022, 12/24/2022, [...] Resulting Agency Comment Lab Testing performed at: [facility] [id number] Nancy Cotto MD LAB - CHEMISTRY ORDERABLES Final Result [facility] INSURANCE BILL [address] [place] [address] * (ABNORMAL) COMPREHENSIVE METABOLIC PANEL (02/03/2024 1:03 AM [facility]) BUN 9 7 - 26 mg/dL 02/03/2024 1:45 AM [facility] Creatinine 0.64 0.56 - 0.96 mg/dL 02/03/2024 1:45 AM [facility] Sodium 139 136 - 145 mmol/L 02/03/2024 1:45 AM [facility] Potassium 3.4(L) 3.5 - 4.5 mmol/L 02/03/2024 1:45 AM [facility] Chloride 107 98 - 107 mmol/L 02/03/2024 1:45 AM [facility] CO2 21(L) 22 - 29 mmol/L 02/03/2024 1:45 AM [facility] Glucose 78 70 - 115 mg/dL 02/03/2024 1:45 AM [facility] Calcium 9.9 8.4 - 10.2 mg/dL 02/03/2024 1:45 AM [facility] Protein Total 7.7 6.0 - 8.3 g/dL 02/03/2024 1:45 AM [facility] Albumin 4.4 3.4 - 5.0 g/dL 02/03/2024 1:45 AM [facility] Bilirubin Total 0.4 0.2 - 1.2 mg/dL 02/03/2024 1:45 AM [facility] Alkaline Phosphatase 81 40 - 150 U/L 02/03/2024 1:45 AM [facility] ALT 58(H) 5 - 55 U/L 02/03/2024 1:45 AM [facility] AST 33 5 - 34 U/L 02/03/2024 1:45 AM [facility] Anion Gap 11 6 - 16 02/03/2024 1:45 AM [facility] BUN/Creatinine Ratio 14 7 - 23 02/03/2024 1:45 AM [facility] Osmolality Calculated 286 275 - 295 mOsm/kg 02/03/2024 1:45 AM [facility] Albumin/Globulin Ratio 1.3 1.1 - 2.3 02/03/2024 1:45 AM [facility] eGFR by CKD-EPI >90 >=90 mL/min/1.7 3 m2 02/03/2024 1:45 AM T [facility] Blood BLOOD SPECIMEN / Unknown Venipuncture / Unknown 02/03/2024 1:03 AM CDT 02/03/2024 1:17 AM CDT us Kaylee Reyes MD LAB - CHEMISTRY ORDERABLES [facility] Result [facility] [address] [place] [address], [facility] [phone] from Last 3 Months or Most Recently Relevant to Health Maintenance Insurance [phone] (Work) [address] [place] [id number] MEDICAID [place] SELF PAY NO INSURANCE Member Subscriber Plan / Payer (Ef fective for All Dates) Name:Tita Luke Member ID:Not on file Relation to Subscriber:Not on file Name:TITA LUKE Subscriber ID:Not on file (Home) Address: [address] [place] [id number] Payer ID:Not on file Group ID:Not on file Type:Self Pay Address: [facility] Care Teams Go Cart Mechanic Relationship Specialty Start Date End Date Damian Sadler MD PCP - General Internal Medicine 07/04/16
[2025-02-21 18:40] VITALS: BP 221/152; PULSE 99; RESP 19; TEMP 36.7; O2SAT 98
--- NOTE | 2025-02-21 19:10 | ED_ITS ---
HPI - Female Genitourinary General Chief complaint: Urogenital-Female Stated complaint: L sided kidney pain, HTN Time Seen by Provider: 02/21/25 19:04 History of Present Illness HPI Narrative: Patient is a 44-year-old female who presents to the emergency department this evening complaining of left-sided flank pain since Saturday. Patient admits that she does have a history of kidney stones. States that she has also been struggling to keep her blood pressure in a normal range it despite taking her pain. She even took an extra amlodipine today at 3:30 p.m. States that her blood pressures at home have been ranging above 200 systolic. Denies any additional symptoms or concerns at this time. Related Data Home Medications ?Medication ?Instructions ?Recorded ?Confirmed ?Last Taken ?Type multivitamin 1 tablet PO DAILY 04/04/22 12/29/24 12/28/24 History nebivolol 10 mg tablet (Bystolic) 10 mg PO BID 10/21/24 12/29/24 12/29/24 History omeprazole 20 mg capsule,delayed 20 mg PO DAILY 11/23/24 12/29/24 12/28/24 History release tamsulosin 0.4 mg capsule 0.4 mg PO DAILY PRN urinary 11/26/24 12/29/24 12/28/24 History retention Allergies Allergy/AdvReac Type Severity Reaction Status Date / Time ketorolac (From Toradol) Allergy Headache,Rash, Verified 02/21/25 18:51 Swollen tongue tramadol AdvReac Mild VOMITING/HE Verified 02/21/25 18:51 ADACHE hydralazine AdvReac Headache Verified 02/21/25 18:51 Review of Systems 2 Review of Systems: All systems are reviewed and are negative unless stated otherwise in the HPI. [facility] Past Medical History Medical History Left ureteral stone Hypertension Gastroesophageal reflux disease Sleep paralysis, recurrent isolated Smoker Obesity Depression Multiple kidney stones Seasonal allergies Surgical History Surgical History H/O ureteroscopy 10/21/24 on the right due to proximal ureteral stone; Dr Gonzalez History of laparoscopic cholecystectomy on 04/25/23 PDC History of tubal ligation History of endometrial ablation (2009) History of hysterectomy (2016) History of open reduction and internal fixation (ORIF) procedure (2012) Left elbow. History of section 2000, 2001, 2010 Status post cystoscopy with ureteral stent placement Family History Family History Mother Diabetes mellitus Depression Alcoholism Father Hypertension Diabetes mellitus Sibling Congenital heart disease Son Asthma Grandparent Diabetes mellitus Cerebrovascular accident Social History Social History Social History: Surrogate medical decision maker: Bang Luke, spouse. Code status: Full code. Smoking packs per day: 0.5 Smoking cigarettes per day: 10.0 Years smoked: 32 Smoking pack-years: 16.00 Smoking status: Current every day smoker Tobacco type: cigarettes Second hand tobacco smoke exposure: Yes Alcohol intake: never Alcohol use details: Social alcohol use in moderation. Substance use: never Substance use type: does not use Do You Feel Safe in your Home?: Yes Lack of Transportation: No Lack of Food: Never True Current Housing: I Have Housing Concerned About Future Housing: No Difficulty Paying Gas/Electric Bills: No Difficulty Paying for Meds: No Currently Unemployed: YES Education: High School Diploma/GED Difficulty w/ Childcare or Family Care: No Living arrangements: with family Spiritual care concerns: No Exam 2 Narrative: General: Alert, awake, afebrile, in no acute distress. HEENT: PERRL, no rhinorrhea, no post nasal drip, oropharynx clear. Neck: Trachea midline, no JVD, no lymphadenopathy. Cardiovascular: Regular rate and rhythm, no murmurs, rubs or gallops, no peripheral edema. Respiratory: Clear to auscultation bilaterally, no tachypnea, no wheezing, no rhonchi, no rubs, no respiratory distress. Abdomen: Soft, nontender, nondistended, no rebound, no guarding, no peritoneal signs. Musculoskeletal: No joint swelling or deformity, normal muscle tone. Skin: No rashes or petechia, no signs of infection. Psychiatric: Alert and oriented, normal behavior and judgment for situation. Neurological: Alert and oriented to person, place, and time. Follows all commands. No focal deficits, speech is clear and fluent. Course Vital Signs Vital signs: Vital Signs Temperature 98.1 F 02/21/25 18:40 Pulse Rate 99 02/21/25 18:40 Respiratory Rate 19 02/21/25 18:40 Blood Pressure 221/152 H 02/21/25 18:40 Pulse Oximetry 98 02/21/25 18:40 Temperature 98.1 F 02/21/25 18:40 Pulse Rate 99 02/21/25 18:40 Respiratory Rate 19 02/21/25 18:40 Blood Pressure 205/150 H 02/21/25 21:48 Pulse Oximetry 98 02/21/25 18:40 MDM - Female Genitourinary MDM Narrative Medical decision making narrative: The patient was evaluated by myself in the emergency department. History is obtained from patient who is an independent historian and physical exam was performed. External medical records were reviewed at this time. IV was established and pertinent tests were ordered. Patient was administered a total of 4 mg IV morphine, 4 mg of IV Zofran and a Lidoderm patch. Laboratory results obtained revealing no acute process. Urinalysis unremarkable. Imaging studies obtained included CT abdomen and pelvis without IV contrast which was independently interpreted by me revealing no acute process, which is pending final radiology interpretation. Patient was informed of these findings at bedside. At this time, patient's blood pressure continues to remain elevated, 200 systolic. She was administered a total of 60 mg of IV labetalol with no improvement of her blood pressure. I do believe the patient is pain seeking and not compliant with her home blood pressure medications. She has been admitted to our facility in the past for these blood pressure issues and as soon as she gets placed on her home regimen her blood pressure normalizes. At this time, case was discussed with the on-call electronic controls repairer supervisor Dr. Dorado regarding ICU admission and [place] wing and he accepted. Case was discussed with him at 2215. Differential diagnosis considerations include kidney stones, pyelonephritis, musculoskeletal strain, cholecystitis, pancreatitis. Comorbidities impacting this visit include history of kidney stones, chronic pain, uncontrolled hypertension I have evaluated and discussed social determinants of health with the patient that could potentially impact subsequent diagnosis and treatment plans. On repeat assessment of the patient, reevaluation revealed that the patient is doing well and is in no acute distress. Patient symptoms have improved since she arrived to our emergency department. Repeat vital signs were all reviewed and noted to be stable. Differential diagnosis and treatment plan were discussed with the patient at bedside. Patient agrees with discussion and after shared medical decision making agrees with admission. All questions were answered to the patient's satisfaction. Case discussed with the on-call hospitalist Dr. Up at 2252 he accepted admission. Patient was started on a Cardene drip for hypertensive emergency. Critical care time of 75 minutes, exclusive of separately performed procedures, necessary for treating or preventing eminent or life-threatening deterioration of patient's condition of hypertensive emergency, focused on patient care provided personally by me and time spent during initial evaluation, physical examination, ordering and performing treatments and interventions, ordering and reviewing laboratory studies, ordering and reviewing radiographic studies, re- evaluation of the patient's condition, evaluation of the patient's response to treatment, and discussion of patient case with multiple consultants. Lab Data 02/21/25 19:07 02/21/25 19:07 Labs: Lab Results 02/21/25 Range/Units 19:07 WBC 7.8 (4.5-10.0) K/mm3 RBC 4.94 (4.2-5.4) M/mm3 Hgb 15.1 H (12.0-15.0) g/dL Hct 43.5 (37.0-47.0) % MCV 88.1 (80-100) fl MCH 30.6 (26-34) pg MCHC 34.7 (32-36) g/dl RDW 12.5 (11.5-14.5) % Plt Count 248 (150-375) k/mm3 MPV 9.2 (7.4-10.4) fl Immature Gran % (Auto) 0.1 (0-0.5) % Neut % (Auto) 63.0 (45.5-73.1) % Lymph % (Auto) 27.3 (18.3-44.2) % Baxter % (Auto) 7.4 (2.6-8.5) % Eos % (Auto) 1.7 (0-4.4) % Baso % (Auto) 0.5 (0.2-1.2) % Lymph # (Auto) 2.14 (0.9-3.2) K/mm3 Baxter # (Auto) 0.6 (0.1-0.6) K/mm3 Eos # (Auto) 0.1 (0-0.3) K/mm3 Baso # (Auto) 0.0 (0.0-0.1) K/mm3 Abs Immat Gran (auto) 0.01 (0.00-0.031) K/mm3 Absolute Neuts (auto) 4.9 (1.3-6.7) K/mm3 Absolute Nucleated RBC 0.000 (0.0-0.012) K/mm3 Nucleated RBC % 0.0 (0.0-0.2) % Sodium 136 L (137-145) mmol/L Potassium 3.8 (3.4-5.0) mmol/L Chloride 105 (98-107) mmol/L Carbon Dioxide 22 (22-30) mmol/L Anion Gap 9 (4-12) mmol/L BUN 10 (7-17) mg/dL Creatinine 0.62 L (0.7-1.0) mg/dL Estim Creat Clear Calc 102 ml/min Estimated GFR > 60 (59 - ) Glucose 124 H (65-110) mg/dL Lactic Acid 1.6 (0.7-2.0) mmol/L Calcium 9.9 (8.4-10.2) mg/dL Magnesium 1.8 (1.6-2.3) mg/dL Total Bilirubin 0.4 (0.2-1.3) mg/dL AST 67 H (14-36) U/L ALT 81 H (6-35) U/L Alkaline Phosphatase 79 (38-126) U/L Total Protein 8.0 (6.3-8.2) g/dL Albumin 4.4 (3.5-5.1) g/dL Lipase 123 (23-300) U/L Urine Color Yellow (Yellow) Urine Appearance Clear (Clear) Urine pH 5.5 (5.0-9.0) Ur Specific [place] 1.022 (1.001-1.035) Urine Protein Negative (Negative) mg/dL Urine Glucose (UA) Negative (Negative) mg/dL Urine Ketones Trace H (Negative) mg/dL Ur Blood (Man) Negative (Negative) Urine Nitrate Negative (Negative) Urine Bilirubin Negative (Negative) Urine Urobilinogen 0.2 (<2.0) mg/dL Leukocyte Esterase Rfl Negative (Negative) ALEKSANDRA/UL Critical Care Time Critical Care Time Critical Care Time: Yes Total Critical Care Time: 75 (High please refer to [facility] for attestation) Discharge Plan Discharge Clinical Impression: Hypertensive emergency, Left flank pain Patient Disposition: Still a Patient Condition: Stable Patient Language: Lao Prescriptions: No Action multivitamin Tablet 1 tablet PO DAILY ondansetron 4 mg tablet,disintegrating 4 mg PO Q8H Qty: 14 0RF nebivolol [Bystolic] 10 mg tablet 10 mg PO BID acetaminophen 500 mg capsule 1,000 mg PO Q6H PRN (Reason: pain) Qty: 30 0RF tamsulosin 0.4 mg capsule 0.4 mg PO DAILY PRN (Reason: urinary retention) Rx Instructions: kidney stones docusate sodium 100 mg Capsule 100 mg PO DAILY Qty: 30 0RF omeprazole 20 mg capsule,delayed release(DR/EC) 20 mg PO DAILY ondansetron 4 mg tablet,disintegrating 4 mg PO Q8H PRN (Reason: nausea and vomiting) Qty: 14 0RF oxycodone 5 mg tablet 5 mg PO Q8H PRN (Reason: pain) Qty: 5 0RF amlodipine 10 mg tablet See Rx Instructions .ROUTE .COMPLEX Qty: 90 0RF Dose Instruction: TAKE 1 TABLET BY MOUTH DAILY Rx Instructions: TAKE 1 TABLET BY MOUTH DAILY losartan 50 mg tablet See Rx Instructions .ROUTE .COMPLEX Qty: 180 0RF Dose Instruction: TAKE 1 TABLET BY MOUTH TWICE DAILY Rx Instructions: TAKE 1 TABLET BY MOUTH TWICE DAILY hydrochlorothiazide 25 mg tablet See Rx Instructions .ROUTE .COMPLEX Qty: 90 0RF Dose Instruction: TAKE 1 TABLET BY MOUTH EVERY MORNING Rx Instructions: TAKE 1 TABLET BY MOUTH EVERY MORNING Follow-up/Referrals: Lucas Carter, [Primary Care Provider] -
--- NOTE | 2025-02-21 19:13 | PC.NURSE ---
Pt blood pressure elevated upon arrival to room. Pt states her PCP is aware of this and increased her meds which helped yesterday but today her pain is worse and the extra BP meds have not brought her BP down is why she is in the ER.
--- OUTSIDE RECORDS SUMMARY | 2025-02-21 19:14 | XMS_ITS | Clinical Summary ---
Author Organization 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 Emergency Department [address] [place] [phone] Laci Vo MD Hypertensive urgency (Primary Dx); Cystic disease of ovary; Abdominal pain Discharge Disposition: Discharge to home or self care 02/19/2025 3:15 PM CDT Office Visit [facility] [address] [place] [address] Outpatient Health 3rd Floor [address] [place] [phone] Christina Torres MD Pelvic pain 02/16/2025 Orders Only [address] [phone] Olivia Caro MD Pain in female pelvis (Primary Dx) 02/15/2025 11:39 PM CDT - 02/16/2025 5:[address] [facility] Emergency Department [address] [place] [phone] Mine Arisa MD Hemorrhagic ovarian cyst (Primary Dx); Hypertension, unspecified type; Pelvic pain Discharge Disposition: Discharge to home or self care 01/27/2025 2:29 AM CDT - 01/27/2025 7:[address] [facility] Emergency Department [address] [place] [phone] Evan Velazquez MD Pelvic pain (Primary Dx) [...] Israel Maternal Grandfather Beka Sr. 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 Medical Devices Implanted Type Area Form Setter Metal Road Forms Device Identifier Shelf Expiration Date Model / [...] CONTRAST ED 02/19/2025 6 :23 PM CDT PA CRITICAL CARE ILL/INJURED PATIENT INIT 30-74 MIN [...] LAB BLOOD ORDERABLES Fi nal Result [facility] [place] [address] * (ABNORMAL) Urinalysis reflex to microscopic and culture Urine, clean voided (02/19/2025 8:42 PM CDT) Color, ur Yellow Yellow Clarity, ur Cloudy(A) Clear [facility] Specific gravity, ur 1.030 1.003 - 1.030 [facility] pH, urine 6.0 [facility] Comment: Interpretive Data U rine pH is affected by diet, medications, systemic acid-base disturbances, and renal tubular function. pH may affect urinary stone formation. For example, urine pH below 6.0 may help reduce the tendency for calcium phosphate stones and pH greater than 6.0 may reduce the tendency for uric acid stone formation. Source: [facility] Current Interpretive Data was last revised on 2017 Protein, ur ql Trace Negative [facility] Glucose, ur ql Negative Negative [facility] Ketones, ur Negative Negative [facility] Bilirubin, ur Negative Negative [facility] Blood, ur 2+(A) Negative [facility] Urobilinogen, ur <2.0 <2.0 mg/dL [facility] Nitrite, ur Negative Negative [facility] Leukocyte esterase, ur Negative Negative [facility] UA reflex comment Reflex to microscopic UA will be performed. [facility] Urine, clean voided 02/19/2025 8:42 PM CDT 02/19/2025 8:49 PM CDT Devante Lois Freedman MD LAB MICROBIOLOGY - [facility] ORDERABLES Final Result [facility] Department [place] [address] * (ABNORMAL) Urinalysis, microscopic only (02/19/2025 8:42 PM CDT) WBC, ur 6-10(A) 0 - 5 /HPF RBC, ur 21-50(A) 0 - 2 /HPF [facility] Epithelial cells, squamous, ur 11-20(A) 0 - 5 /HPF [facility] Comment:Suggestive of contam ination. Consider recollection by clean catch. Mucous, ur Present(A) [facility] Culture Reflex Comment Reflex conditions for urine culture (WBC >10) not met. [facility] Urine, clean voided 02/19/2025 8:42 PM CDT 02/19/2025 8:49 PM CDT Devante Freedman MD LAB URINE ORDERABLES Fi nal Result Performing Organization Address [facility] de Phone Number [facility] [place] [address] * Troponin I high-sensitivity 2-hour (02/19/2025 8:41 PM CDT) Trop I hs 6 <=17 ng/L Comment: Interpretive Data For further hscTnI resources including the diagnostic algorithm and an aid in interpretation, copy and paste this link: https://bjhlab.testcatalog.org/show/[email or web address] Current Interpretive Data last revised 2020. Trop I hs delta -1 ng/L [facility] Trop I hs interp Insignificant [facility] Blood 02/19/2025 8:41 PM CDT 02/19/2025 8:53 PM CDT Devante Freedman MD LAB BLOOD ORDERABLES Fi nal Result Performing Organization Address [facility] Co de Phone Number [facility] [place] [address] * ECG 12-LEAD (02/19/2025 7:20 PM CDT) Narrative [facility] - 02/19/2025 7:20 PM CDT Laci Vo MD 02/19/2025 7:20 PM ECG 12 lead Date/Time: 02/19/2025 7:20 PM Performed by: Laci Vo MD Authorized by: Devante Freedman MD Rate: ECG rate: Rate 67, narrow complex, regular, sinus, no STEMI Devante Freedman MD ECG ORDERABLES Final R esult Performing Organization Address [facility] Co de Phone Number [facility] * aPTT (02/19/2025 7:13 PM [...] ORDERABLES Fi nal Result Performing Organization Address [facility] de Phone Number [facility] Department [place] [address] * Type and screen (02/19/2025 7:13 PM CDT) ABO Rh B Positive Jorge, indirect Negative [facility] Blood 02/19/2025 7:13 PM CDT 02/19/2025 7:31 PM CDT Narrative [facility] - 02/19/2025 8:27 PM CDT Has the patient had Daratumumab or Isatuximab in the past 6 months?->Unknown Devante Freedman MD LAB BLOOD BANK TEST ORD ERABLES Final Result Performing Organization Address [facility] Co de Phone Number [facility] [place] [address] * XR Chest PA Lateral 2 Views [...] it. Electronically signed by: Piedad Galo M.D. [facility] Lois Freedman MD IMG XR PROCEDURES Final [...] it. Electronically signed by: Carey Nguyen M.D. [facility] Lois Freedman MD IMG CT PROCEDURES Final Result * PA CRITICAL CARE ILL/INJURED PATIENT INIT 30-74 MIN [...] MD LAB BLOOD ORDERABLES Fi nal Result [facility] Department [place] [address] * Differential, auto (02/19/2025 5:47 PM CDT) Neutrophil abs 4.35 1.50 - 6.50 K/cumm Imm gran abs 0.02 0.00 - 0.10 K/cumm [facility] Lymphocyte abs 2.31 0.80 - 3.30 K/cumm [facility] Monocyte abs 0.56 0.20 - 0.80 K/cumm [facility] Eosinophil abs 0.14 0.00 - 0.50 K/cumm [facility] Basophil abs 0.03 0.00 - 0.10 K/cumm [facility] Neutrophil pct 58.6 % [facility] Comment: Interpretive Data [...] revised on 2017. Lymphocyte pct 31.2 % [facility] Comment: Interpretive Data Percent cell count reference ranges are not reported, since discordance with absolute values may lead to misinterpretation of CBC data. Current Interpretive Data was last revised on 2017. Monocyte pct 7.6 % [facility] Comment: Interpretive Data Percent cell count reference ranges are not reported, since discordance with absolute values may lead to misinterpretation of CBC data. Current Interpretive Data was last revised on 2017. Eosinophil pct 1.9 % [facility] Comment: Interpretive Data Percent cell count reference ranges are not reported, since discordance with absolute values may lead to misinterpretation of CBC data. Current Interpretive Data was last revised on 2017. Basophil pct 0.4 % [facility] Comment: Interpretive Data Percent cell count reference ranges are not reported, since discordance with absolute values may lead to misinterpretation of CBC data. Current Interpretive Data was last revised on 2017. Blood 02/19/2025 5:47 PM CDT 02/19/2025 5:55 PM CDT Devante Freedman MD LAB BLOOD ORDERABLES Fi nal Result Performing Organization Address City/[facility]/ZIP Co de Phone Number [facility] Department [place] [address] * (ABNORMAL) CBC with auto differential (02/19/2025 5:47 PM CDT) WBC 7.41 3.80 - 9.90 K/cumm Hgb 14.9 11.9 - 15.5 g/dL [facility] Hct 41.1 35.6 - 45.5 % [facility] Plt 214 150 - 400 K/cumm [facility] MPV 9.4 9.1 - 12.3 fL [facility] RBC 4.78 3.90 - 5.20 M/cumm [facility] MCV 86.0 81.3 - 96.4 fL [facility] MCH 31.2 27.1 - 33.3 pg [facility] MCHC 36.3(H) 32.3 - 35.7 g/dL [facility] RDW CV 12.6 11.1 - 14.9 % [facility] RDW SD 39.3 35.7 - 48.1 fL [facility] NRBC abs 0.00 0.00 - 0.01 K/cumm [facility] Blood 02/19/2025 5:47 PM CDT 02/19/2025 5:55 PM CDT Devante Freedman MD LAB BLOOD ORDERABLES Fi nal Result Performing Organization Address City/[facility]/ZIP Co de Phone Number [facility] Department [place] [address] * (ABNORMAL) Comprehensive metabolic panel (02/19/2025 5:47 PM CDT) Sodium 137 135 - 145 mmol/L Potassium, pl 4.1 3.3 - 4.9 mmol/L [facility] Chloride 105 97 - 110 mmol/L [facility] CO2 25 22 - 32 mmol/L [facility] Anion gap 7 2 - 15 mmol/L [facility] BUN 13 6 - 25 mg/dL [facility] Creatinine 0.70 0.60 - 1.10 mg/dL [facility] Glucose 75 70 - 199 mg/dL [facility] [...] 2022. Calcium 9.4 8.5 - 10.3 mg/dL [facility] Bilirubin, total 0.4 0.1 - 1.2 mg/dL [facility] Protein, pl 7.6 6.5 - 8.5 g/dL [facility] Albumin 4.4 3.5 - 5.0 g/dL [facility] Alk phos 93 40 - 130 Units/L [facility] ALT 84(H) 7 - 45 Units/L [facility] AST 93(H) 10 - 45 Units/L [facility] Blood 02/19/2025 5:47 PM CDT 02/19/2025 5:55 PM CDT us Devante Freedman MD LAB BLOOD ORDERABLES Fi nal Result [facility] Department [place] [address] * Troponin I high-sensitivity series (baseline, 2hr, [...] MD LAB BLOOD ORDERABLES Fi nal Result [facility] Department [place] [address] * Urinalysis reflex to microscopic (02/15/2025 11:53 PM CDT) Pathologist [facility] [place] Color, ur Straw Yellow Clarity, ur Clear Clear [facility] Specific gravity, ur 1.007 1.003 - 1.030 [facility] pH, urine 6.0 [facility] Comment: Interpretive Data U rine pH is affected by diet, medications, systemic acid-base disturbances, and renal tubular function. pH may affect urinary stone formation. For example, urine pH below 6.0 may help reduce the tendency for calcium phosphate stones and pH greater than 6.0 may reduce the tendency for uric acid stone formation. Source: [facility] Current Interpretive Data was last revised on 2017 Protein, ur ql Negative Negative [facility] Glucose, ur ql Negative Negative [facility] Ketones, ur Negative Negative [facility] Bilirubin, ur Negative Negative [facility] Blood, ur Negative Negative [facility] Urobilinogen, ur <2.0 <2.0 mg/dL [facility] Nitrite, ur Negative Negative [facility] Leukocyte esterase, ur Negative Negative [facility] UA reflex comment Reflex conditions for microscopic UA not met. [facility] Urine 02/15/2025 11:5 3 PM CDT 02/15/2025 11:59 PM CDT us Mine Arias MD LAB URINE ORDERABLES Final Result [facility] PINTO [facility] Department [place] [address] * POCT hCG, urine (02/15/2025 11:49 PM [...] LAB BLOOD ORDERABLES Final Result CHARLEEN Arias [facility] Department [place] [address] * (ABNORMAL) Differential, auto (02/15/2025 11:44 PM CDT) Neutrophil abs 6.35 1.50 - 6.50 K/cumm Imm gran abs 0.04 0.00 - 0.10 K/cumm [facility] Lymphocyte abs 2.80 0.80 - 3.30 K/cumm [facility] Monocyte abs 0.81(H) 0.20 - 0.80 K/cumm [facility] Eosinophil abs 0.10 0.00 - 0.50 K/cumm [facility] Basophil abs 0.05 0.00 - 0.10 K/cumm [facility] Neutrophil pct 62.5 % [facility] Comment: Interpretive Data Percent cell count reference ranges are not reported, since discordance with absolute values may lead to misinterpretation of CBC data. Current Interpretive Data was last revised on 2017. Imm gran pct 0.4 % [facility] Comment: Interpretive Data Percent cell count reference ranges are not reported, since discordance with absolute values may lead to misinterpretation of CBC data. Current Interpretive Data was last revised on 2017. Lymphocyte pct 27.6 % [facility] Comment: Interpretive Data [...] on 2017. Eosinophil pct 1.0 % [facility] Comment: Interpretive Data Percent cell count reference ranges are not reported, since discordance with absolute values may lead to misinterpretation of CBC data. Current Interpretive Data was last revised on 2017. Basophil pct 0.5 % [facility] Comment: Interpretive Data Percent cell count reference ranges are not reported, since discordance with absolute values may lead to misinterpretation of CBC data. Current Interpretive Data was last revised on 2017. Blood 02/15/2025 11:4 4 PM CDT 02/15/2025 11:58 PM CDT Mine Arias MD LAB BLOOD ORDERABLES Final Result [facility] Department [place] [address] * (ABNORMAL) CBC with auto differential (02/15/2025 11:44 PM CDT) Pathologist [facility] [place] WBC 10.15(H) 3.80 - 9.90 K/cumm Hgb 15.7(H) 11.9 - 15.5 g/dL [facility] Hct 43.5 35.6 - 45.5 % [facility] Plt 229 150 - 400 K/cumm [facility] MPV 9.8 9.1 - 12.3 fL [facility] RBC 5.06 3.90 - 5.20 M/cumm [facility] MCV 86.0 81.3 - 96.4 fL [facility] MCH 31.0 27.1 - 33.3 pg [facility] MCHC 36.1(H) 32.3 - 35.7 g/dL [facility] RDW CV 12.6 11.1 - 14.9 % [facility] RDW SD 38.7 35.7 - 48.1 fL [facility] NRBC abs 0.00 0.00 - 0.01 K/cumm [facility] Blood Venous blood specimen / Unknown 02/15/2025 11:44 PM CDT 02/15/2025 11:58 PM CDT Mine Arias MD LAB BLOOD ORDERABLES Final Result [facility] Department [place] [address] * Lipase (02/15/2025 11:44 PM CDT) Pathologist [facility] [place] Lipase 24 10 - 99 Units/L Blood Venous blood specimen / Unknown 02/15/2025 11:44 PM CDT 02/15/2025 11:58 PM CDT Mine Arias MD LAB BLOOD ORDERABLES Final Result [facility] Department [place] [address] * Comprehensive metabolic panel (02/15/2025 11:44 PM CDT) Pathologist [facility] [place] Sodium 141 135 - 145 mmol/L Potassium, pl 3.7 3.3 - 4.9 mmol/L [facility] Chloride 105 97 - 110 mmol/L [facility] CO2 23 22 - 32 mmol/L [facility] Anion gap 13 2 - 15 mmol/L [facility] BUN 9 6 - 25 mg/dL [facility] Creatinine 0.63 0.60 - 1.10 mg/dL [facility] Glucose 79 70 - 199 mg/dL [facility] [...] Calcium 9.7 8.5 - 10.3 mg/dL [facility] Bilirubin, total 0.3 0.1 - 1.2 mg/dL [facility] Protein, pl 7.8 6.5 - 8.5 g/dL [facility] Albumin 4.4 3.5 - 5.0 g/dL [facility] Alk phos 97 40 - 130 Units/L [facility] ALT 44 7 - 45 Units/L [facility] AST 34 10 - 45 Units/L [facility] Blood 02/15/2025 11:4 4 PM CDT 02/15/2025 11:58 PM CDT us Mine Arias MD LAB BLOOD ORDERABLES Final Result Performing Organization Address City/[facility] Co de Phone Number [facility] Department [place] [address] * (ABNORMAL) Urinalysis reflex to microscopic (01/27/2025 5:33 AM CDT) [facility] Signature Color, ur Straw Yellow Clarity, ur Clear Clear [facility] Specific gravity, ur >1.042(H) 1.003 - 1.030 [facility] pH, urine 6.5 [facility] Comment: Interpretive Data U rine pH is affected by diet, medications, systemic acid-base disturbances, and renal tubular function. pH may affect urinary stone formation. For example, urine pH below 6.0 may help reduce the tendency for calcium phosphate stones and pH greater than 6.0 may reduce the tendency for uric acid stone formation. Source: [facility] Current Interpretive Data was last revised on 2017 Protein, ur ql 1+(A) Negative [facility] Glucose, ur ql Negative Negative [facility] Ketones, ur Negative Negative [facility] Bilirubin, ur Negative Negative [facility] Blood, ur Negative Negative [facility] Urobilinogen, ur <2.0 <2.0 mg/dL [facility] Nitrite, ur Negative Negative [facility] Leukocyte esterase, ur Negative Negative [facility] UA reflex comment Reflex to microscopic UA will be performed. [facility] Urine 01/27/2025 5:3 3 AM CDT 01/27/2025 5:40 AM CDT us Evan Velazquez MD LAB URINE ORDERABLES Final Resul t Performing Organization Address City/[facility] Co de Phone Number [facility] Department [place] [address] * (ABNORMAL) Urinalysis, microscopic only (01/27/2025 5:33 AM CDT) WBC, ur 0-5 0 - 5 /HPF RBC, ur 0-2 0 - 2 /HPF [facility] Epithelial cells, squamous, ur 1-5 0 - 5 /HPF [facility] Bacteria, ur Trace(A) [facility] Mucous, ur Present(A) [facility] Urine 01/27/2025 5:33 AM CDT 01/27/2025 5:40 AM CDT Evan Velazquez MD LAB URINE ORDERABLES Final Resul t Performing Organization Address [facility] de Phone Number [facility] [place] [address] * aPTT (01/27/2025 5:33 AM CDT) aPTT [...] ORDERABLES Final Resul t Performing Organization Address [facility] de Phone Number [facility] [place] [address] * (ABNORMAL) Protime-INR (01/27/2025 5:33 AM CDT) PT 14.2(H) 9.7 - 13.0 sec INR 1.31(H) 0.90 - 1.20 [facility] Comment: Interpretive data Oral anticoagulant therapeutic ranges: Venous thromboembolism prophylaxis or treatment: 2.0-3.0 CARDIOLOGY Standard range: 2.0-3.0 High-intensity range: 2.5-3.5 Refer to indication-specific guidelines for appropriate target ranges for prosthetic heart valve replacement. Current interpretive data was last revised on 2019. Blood 01/27/2025 5:33 AM CDT 01/27/2025 5:40 AM CDT us Evan Velazquez MD LAB BLOOD ORDERABLES Final Resul t [facility] Department [place] [address] * POCT hCG, urine (01/27/2025 5:28 AM [...] ORDERABLES Final Res ult Performing Organization Address [facility] Co de Phone Number [facility] Department [place] [address] * aPTT (01/27/2025 3:05 AM CDT) aPTT See Comment 28 - 38 sec Comment: Interpretive Data Heparin therapeutic range: 66.0 - 100.0 seconds. Range based on correlation with therapeutic heparin activity range of 0.3 - 0.7 Units/mL. Current interpretive data was last revised on 2023. No clot detected in sample Repeated and verified - [id number] - 01/27/25, 4:41 AM Repeated and verified. Credited: Sample investigated and is suggestive of an improper collection (e.g., IV fluid contamination, improper tube type). Deleted at the Request of Mishel MOHAN on 01/27/2025 05:30:06 CDT by YUE . Blood 01/27/2025 3:05 AM CDT 01/27/2025 3:17 AM CDT Jorge Jerome MD LAB BLOOD ORDERABLES Edited Re sult - Final Performing Organization Address City/[facility]/ZIP Co de Phone Number [facility] Department [place] [address] * Thrombin time (01/27/2025 3:05 AM CDT) [...] Re sult - Final Performing Organization Address [facility] de Phone Number [facility] [place] [address] * Protime-INR (01/27/2025 3:05 AM CDT) PT See Comment 9.7 - 13.0 sec Comment: Repeated and verified. Credited: Sample investigated and is suggestive of an improper collection (e.g., IV fluid contamination, improper tube type). Deleted at the Request of Mishel MOHAN on 01/27/2025 05:30:06 CDT by YUE . INR See Comment 0.90 - 1.20 [facility] Comment: Interpretive data Oral anticoagulant therapeutic ranges: [...] tube type). Deleted at the Request of Misehl MOHAN on 01/27/2025 05:30:06 CDT by YUE . Blood 01/27/2025 3:05 AM CDT 01/27/2025 3:17 AM CDT us Jorge Jerome MD LAB BLOOD ORDERABLES Edited Re sult - Final Performing Organization Address [facility] Co de Phone Number [facility] [place] [address] * Type and screen (01/27/2025 3:05 AM CDT) Jorge, indirect Negative ABO Rh B Positive [facility] Blood 01/27/2025 3:05 AM CDT 01/27/2025 3:23 AM CDT Narrative [facility] - 01/27/2025 4:11 AM CDT Has the patient had Daratumumab or Isatuximab in the past 6 months?->Unknown Jorge Jerome MD LAB BLOOD BANK TEST ORDERABLES Final Result Performing Organization Address [facility]/ZIP Co de Phone Number [facility] [place] [address] * eGFR (01/27/2025 2:47 AM CDT) Pathologist [facility] [place] [...] ORDERABLES Sandra l Result Performing Organization Address City/[facility]/ZIP Co de Phone Number [facility] Department [place] [address] * Differential, auto (01/27/2025 2:47 AM CDT) Neutrophil abs 5.16 1.50 - 6.50 K/cumm Imm gran abs 0.02 0.00 - 0.10 K/cumm [facility] Lymphocyte abs 2.32 0.80 - 3.30 K/cumm [facility] Monocyte abs 0.76 0.20 - 0.80 K/cumm [facility] Eosinophil abs 0.09 0.00 - 0.50 K/cumm [facility] Basophil abs 0.05 0.00 - 0.10 K/cumm [facility] Neutrophil pct 61.5 % [facility] Comment: Interpretive Data Percent cell [...] revised on 2017. Lymphocyte pct 27.6 % [facility] Comment: Interpretive Data Percent cell count reference ranges are not reported, since discordance with absolute values may lead to misinterpretation of CBC data. Current Interpretive Data was last revised on 2017. Monocyte pct 9.0 % [facility] Comment: Interpretive Data Percent cell count reference ranges are not reported, since discordance with absolute values may lead to misinterpretation of CBC data. Current Interpretive Data was last revised on 2017. Eosinophil pct 1.1 % [facility] Comment: Interpretive Data [...] MD LAB BLOOD ORDERABLES Final Resul t [facility] [place] [address] * CBC with auto differential (01/27/2025 2:47 AM CDT) [facility] WBC 8.40 3.80 - 9.90 K/cumm Hgb 15.4 11.9 - 15.5 g/dL [facility] Hct 43.1 35.6 - 45.5 % [facility] Plt 264 150 - 400 K/cumm [facility] MPV 9.6 9.1 - 12.3 fL [facility] RBC 5.02 3.90 - 5.20 M/cumm [facility] MCV 85.9 81.3 - 96.4 fL [facility] MCH 30.7 27.1 - 33.3 pg [facility] MCHC 35.7 32.3 - 35.7 g/dL [facility] RDW CV 12.8 11.1 - 14.9 % [facility] RDW SD 40.1 35.7 - 48.1 fL [facility] NRBC abs 0.00 0.00 - 0.01 K/cumm [facility] Blood Venous blood specimen / Unknown 01/27/2025 2:47 AM CDT 01/27/2025 2:59 AM CDT Evan Velazquez MD LAB BLOOD ORDERABLES Final Resul t [facility] Department [place] [address] * (ABNORMAL) Comprehensive metabolic panel (01/27/2025 2:47 AM CDT) Pathologist [facility] [place] Sodium 139 135 - 145 mmol/L Potassium, pl 3.5 3.3 - 4.9 mmol/L [facility] Chloride 104 97 - 110 mmol/L [facility] CO2 22 22 - 32 mmol/L [facility] Anion gap 13 2 - 15 mmol/L [facility] BUN 10 6 - 25 mg/dL [facility] Creatinine 0.68 0.60 - 1.10 mg/dL [facility] Glucose 99 70 - 199 mg/dL [facility] [...] 2022. Calcium 9.3 8.5 - 10.3 mg/dL [facility] Bilirubin, total 0.5 0.1 - 1.2 mg/dL [facility] Protein, pl 8.3 6.5 - 8.5 g/dL [facility] Albumin 4.6 3.5 - 5.0 g/dL [facility] Alk phos 105 40 - 130 Units/L [facility] ALT 67(H) 7 - 45 Units/L [facility] AST 55(H) 10 - 45 Units/L [facility] Blood 01/27/2025 2:47 AM CDT 01/27/2025 2:59 AM CDT us Evan Velazquez MD LAB BLOOD ORDERABLES Final Resul t [facility] Department [place] [address] from Last 3 Months Insurance ID[employer] [facility] CHOICE [facility] HMO/PPO Address: [facility] [id number] [place] [id number] [place] [address] [facility] Advance Directives For more information, please contact: [phone] * Full Code (Latest Code Status on File) Date Activated Date Inactivated Comments 08/15/2022 3:10 PM 08/18/2022 6:09 PM Care Teams Client Strategist Relationship Specialty Start Date End Date Lucas Carter DO PCP - General Internal Medicine 08/15/22
--- OUTSIDE RECORDS SUMMARY | 2025-02-21 19:14 | XMS_ITS | Encounter Summary ---
Author Organization [facility] Healthcare Address [address] [place] [address] Care Team Providers Care Tile And Marble Setter Name Role Phone Lucas Carter DO Primary Care Provider [phone] Reason for Visit * Reason Comments Hypertension Encounter Details Date Type Department Care Team (Late st Contact Info) Description 02/19/2025 5:24 PM CDT - 02/19/2025 11:02 PM CDT Emergency [facility] Emergency Department [address] [place] [address] Laci Vo MD [address] [place] [address] Hypertensive urgency (Primary Dx); Cystic disease of [...] on file Legal Sex Female 9:06 PM LEGAL REFEREE Gender Identity Female 10/01/2023 8:44 AM LEGAL REFEREE Sexual Orientation Straight 10/01/2023 8: 44 AM LEGAL REFEREE documented as of this encounter Last Filed [...] sent through Care Everywhere. * Ovarian Cyst (Gabonese) * Hypertensive Crisis (Discharge Care) (Gabonese) documented in this encounter Medications at Time of Discharge amLODIPine (NORVASC) 10 mg tabletIndications:hy pertension Take 1 tablet (10 mg total) by mouth nightly 03/03/2024 cyclobenzaprine (FLEXERIL) 10 mg tablet TAKE 1 TABLET(10 MG) BY MOUTH THREE TIMES DAILY NEEDED FOR MUSCLE SPASMS 90 tablet 1 11/23/2024 hydroCHLOROthiazide (HYDRODIURIL) 25 mg tabletIndications:hy pertension Take 1 tablet (25 mg total) by mouth independent insurance adjuster before breakfast ibuprofen 200 mg tab/cap Take [...] ORAL)Indications:hea lth Take 1 tablet by mouth independent insurance adjuster before breakfast nebivoloL (BYSTOLIC) 10 mg tabletIndications:hy pertension Take 1 tablet (10 mg total) by mouth every other day 01/03/2024 omeprazole (PriLOSEC) 20 mg capsuleIndications:T reatment of Non-Bleeding Gastric Disorder Take 1 capsule (20 mg total) by mouth independent insurance adjuster before breakfast ondansetron ODT (ZOFRAN-ODT) 4 mg [...] 3:41 PM CDT Pre-Arrival Note Call [facility] where pt had outpatient appointment today. [...] Contact your local community or [facility] for information on exercise, fall prevention [...] CONTRAST ED 02/19/2025 6 :23 PM CDT [facility]-74 MIN [...] I high-sensitivity 4-hour (02/19/2025 9:24 PM CDT) [facility] Trop I hs 5 <=17 ng/L Comment: Interpretive Data For further hscTnI resources including the diagnostic algorithm and an aid in interpretation, copy and paste this link: https://bjhlab.testcatalog.org/show/hsTrop-1 Current Interpretive Data last revised 2020. Trop I hs delta -2 ng/L [facility] Trop I hs interp Insignificant [facility] Blood 02/19/2025 9:24 PM CDT 02/19/2025 9:50 PM CDT us Devante Lois Freedman MD LAB BLOOD ORDERABLES Fi nal Result [facility] Department [place] [address] * (ABNORMAL) Urinalysis, microscopic only (02/19/2025 8:42 PM CDT) WBC, ur 6-10(A) 0 - 5 /HPF RBC, ur 21-50(A) 0 - 2 /HPF [facility] Epithelial cells, squamous, ur 11-20(A) 0 - 5 /HPF [facility] Comment:Suggestive of contam ination. Consider recollection by clean catch. Mucous, ur Present(A) [facility] Culture Reflex Comment Reflex conditions for urine culture (WBC >10) not met. [facility] Urine, clean voided 02/19/2025 8:42 PM CDT 02/19/2025 8:49 PM CDT us Devante Lois Freedman MD LAB URINE ORDERABLES Fi nal Result [facility] Department [place] [address] * (ABNORMAL) Urinalysis reflex to microscopic and culture Urine, clean voided (02/19/2025 8:42 PM CDT) Color, ur Yellow Yellow Clarity, ur Cloudy(A) Clear [facility] Specific gravity, ur 1.030 1.003 - 1.[address] [facility] pH, urine 6.[address] [facility] Comment: Interpretive Data U rine pH is affected by diet, medications, systemic acid-base disturbances, and renal tubular function. pH may affect urinary stone formation. For example, urine pH below 6.0 may help reduce the tendency for calcium phosphate stones and pH greater than 6.0 may reduce the tendency for uric acid stone formation. Source: [facility] [employer] Current Interpretive Data was last revised on 2017 Protein, ur ql Trace Negative [facility] Glucose, ur ql Negative Negative [facility] Ketones, ur Negative Negative [facility] Bilirubin, ur Negative Negative [facility] Blood, ur 2+(A) Negative [facility] Urobilinogen, ur <2.0 <2.0 mg/dL [facility] Nitrite, ur Negative Negative [facility] Leukocyte esterase, ur Negative Negative [facility] UA reflex comment Reflex to microscopic UA will be performed. [facility] Urine, clean voided 02/19/2025 8:42 PM CDT 02/19/2025 8:49 PM CDT Devante Freedman MD LAB MICROBIOLOGY - GENE RAL ORDERABLES Final Result Performing Organization Address [facility] de Phone Number [facility] [place] [address] * Troponin I high-sensitivity 2-hour (02/19/2025 8:41 PM CDT) Trop I hs 6 <=17 ng/L Comment: Interpretive Data For further hscTnI resources including the diagnostic algorithm and an aid in interpretation, copy and paste this link: https://bjhlab.testcatalog.org/show/hsTrop-1 Current Interpretive Data last revised 2020. Trop I hs delta -1 ng/L [facility] Trop I hs interp Insignificant [facility] Blood 02/19/2025 8:41 PM CDT 02/19/2025 8:53 PM CDT Devante Freedman MD LAB BLOOD ORDERABLES Fi nal Result Performing Organization Address [facility] de Phone Number [facility] [place] [address] * ECG 12-LEAD (02/19/2025 7:20 PM CDT) Narrative [facility] - 02/19/2025 7:20 PM CDT Laci Vo MD 02/19/2025 7:20 PM ECG 12 lead Date/Time: 02/19/2025 7:20 PM Performed by: Laci Vo MD Authorized by: Devante Freedman MD Rate: ECG rate: Rate 67, narrow complex, regular, sinus, no STEMI Devante Freedman MD ECG ORDERABLES Final R esult Performing Organization Address City/[facility] Co de Phone Number [facility] * aPTT (02/19/2025 7:13 PM CDT) [...] ORDERABLES Fi nal Result Performing Organization Address [facility] Co de Phone Number [facility] Department [place] [address] * Type and screen (02/19/2025 7:13 PM CDT) ABO Rh B Positive Jorge, indirect Negative [facility] Blood 02/19/2025 7:13 PM CDT 02/19/2025 7:31 PM CDT Narrative [facility] - 02/19/2025 8:27 PM CDT Has the patient had Daratumumab or Isatuximab in the past 6 months?->Unknown Devante Freedman MD LAB BLOOD BANK TEST ORD ERABLES Final Result Performing Organization Address [facility] Co de Phone Number [facility] Department [place] [address] * XR Chest PA Lateral 2 Views [...] it. Electronically signed by: Piedad Galo M.D. [facility] Lois Freedman MD IMG XR PROCEDURES Final Result * CT Head WO Contrast (02/19/2025 6:23 PM CDT) Anatomical Region Laterality Modality Head and Neck N/A Computed Tomogra phy 02/19/2025 6:42 PM CDT Impressions 02/19/2025 6:46 PM CDT No intracranial hemorrhage or large acute edematous infarct. Dictated by: Jonh Morrow MD The radiology attending physician has [...] it. Electronically signed by: Carey Nguyen M.D. [facility] Lois Freedman MD IMG CT PROCEDURES Final Result * [facility] PATIENT INIT 30-74 MIN [...] MD LAB BLOOD ORDERABLES Fi nal Result [facility] Department [place] [address] * Differential, auto (02/19/2025 5:47 PM CDT) Neutrophil abs 4.35 1.50 - 6.50 K/cumm Imm gran abs 0.02 0.00 - 0.10 K/cumm [facility] Lymphocyte abs 2.31 0.80 - 3.30 K/cumm [facility] Monocyte abs 0.56 0.20 - 0.80 K/cumm [facility] Eosinophil abs 0.14 0.00 - 0.50 K/cumm [facility] Basophil abs 0.03 0.00 - 0.10 K/cumm [facility] Neutrophil pct 58.6 % [facility] Comment: [...] 2017. Lymphocyte pct 31.2 % [facility] Comment: Interpretive Data Percent cell count reference ranges are not reported, since discordance with absolute values may lead to misinterpretation of CBC data. Current Interpretive Data was last revised on 2017. Monocyte pct 7.6 % [facility] Comment: Interpretive Data Percent cell count reference ranges are not reported, since discordance with absolute values may lead to misinterpretation of CBC data. Current Interpretive Data was last revised on 2017. Eosinophil pct 1.9 % [facility] Comment: Interpretive Data Percent cell count reference ranges are not reported, since discordance with absolute values may lead to misinterpretation of CBC data. Current Interpretive Data was last revised on 2017. Basophil pct 0.4 % [facility] Comment: Interpretive Data Percent cell count reference ranges are not reported, since discordance with absolute values may lead to misinterpretation of CBC data. Current Interpretive Data was last revised on 2017. Blood 02/19/2025 5:47 PM CDT 02/19/2025 5:55 PM CDT Devante Freedman MD LAB BLOOD ORDERABLES Fi nal Result Performing Organization Address [facility]/ZIP Co de Phone Number [facility] Department [place] [address] * (ABNORMAL) CBC with auto differential (02/19/2025 5:47 PM CDT) Pathologist [facility] WBC 7.41 3.80 - 9.90 K/cumm Hgb 14.9 11.9 - 15.5 g/dL [facility] Hct 41.1 35.6 - 45.5 % [facility] Plt 214 150 - 400 K/cumm [facility] MPV 9.4 9.1 - 12.[address] [facility] RBC 4.78 3.90 - 5.20 M/cumm [facility] MCV 86.0 81.3 - 96.[address] [facility] MCH 31.2 27.1 - 33.[address] [facility] MCHC 36.3(H) 32.3 - 35.7 g/dL [facility] RDW CV 12.6 11.1 - 14.9 % [facility] RDW SD 39.3 35.7 - 48.[address] [facility] NRBC abs 0.00 0.00 - 0.01 K/cumm [facility] Blood 02/19/2025 5:47 PM CDT 02/19/2025 5:55 PM CDT Devante Freedman MD LAB BLOOD ORDERABLES Fi nal Result Performing Organization Address City/[facility]/ZIP Co de Phone Number [facility] Department [place] [address] * (ABNORMAL) Comprehensive metabolic panel (02/19/2025 5:47 PM CDT) Pathologist [facility] Sodium 137 135 - 145 mmol/L Potassium, pl 4.1 3.3 - 4.9 mmol/L [facility] Chloride 105 97 - 110 mmol/L [facility] CO2 25 22 - 32 mmol/L [facility] Anion gap 7 2 - 15 mmol/L [facility] BUN 13 6 - 25 mg/dL [facility] Creatinine 0.70 0.60 - 1.10 mg/dL [facility] Glucose 75 70 - 199 mg/dL [facility] [...] 9.4 8.5 - 10.3 mg/dL [facility] Bilirubin, total 0.4 0.1 - 1.2 mg/dL [facility] Protein, pl 7.6 6.5 - 8.5 g/dL [facility] Albumin 4.4 3.5 - 5.0 g/dL [facility] Alk phos 93 40 - 130 Units/L [facility] ALT 84(H) 7 - 45 Units/L [facility] AST 93(H) 10 - 45 Units/L [facility] Blood 02/19/2025 5:47 PM CDT 02/19/2025 5:55 PM CDT Devante Freedman MD LAB BLOOD ORDERABLES Fi nal Result [facility] Department [place] [address] * Troponin I high-sensitivity series (baseline, 2hr, [...] LAB BLOOD ORDERABLES Fi nal Result [facility] Department [place] [address] documented in this encounter Visit Diagnoses Diagnosis [...] 02/19/2025 documented in this encounter Care Teams Tile And Marble Setter Relationship Specialty Start Date End Date Lucas Carter DO PCP - General Internal Medicine 08/15/22 documented as of this encounter
--- OUTSIDE RECORDS SUMMARY | 2025-02-21 19:14 | XMS_ITS | Clinical Summary ---
Author Organization [facility] Address [address] [place] [address] Phone Care Team Providers Care Soyfreeze Operator Name Role Phone Damian Diamond MD [...] 11:59 PM CDT Hospital Encounter [facility] Ultrasound [address] [place] [address] Daiman Diamond MD Discharge Disposition: Discharged to home or Selfcare 02/18/2025 7:44 AM CDT - 02/18/2025 8:50 AM CDT Hospital Encounter [facility] Mammography [address] [place] [address] Damian Diamond MD Discharge Disposition: Discharged to home or Selfcare 02/17/2025 Travel 02/10/2025 3:30 PM CDT Office Visit [facility] [address] [place] [address] Damian Diamond MD Primary hypertension (Primary Dx); Polyarthralgia Pain in unspecified joint Discharge Disposition: Discharged to home or Selfcare 02/10/2025 Travel 02/05/2025 10:51 PM CDT - 02/06/2025 1:23 AM CDT [facility] [address] [place] [address] Mike Melgar MD Chronic abdominal pain Discharge Disposition: Discharged to home or Selfcare 02/05/2025 Travel 01/19/2025 Telephone [facility] [address] [place] [address] Damian Diamond MD 01/19/2025 Travel 01/13/2025 12:30 PM CDT Office Visit [facility] [address] [place] [address] Damian Diamond MD Physical exam, annual (Adult) (Primary Dx); Encounter for screening mammogram for breast cancer Discharge Disposition: Discharged to home or Selfcare 01/11/2025 Travel 12/30/2024 Telephone [facility] [address] [place] [address] Damian Diamond MD from Last 3 Months [...] drink = 0.6 oz pur e alcohol) [facility] Utilities Answer Date Recorded In the past 12 months has [employer], gas, oil, or water company threatened [...] often do you attend chur ch or latter-day services? Never 01/11/2025 Do you belong to any clubs o r organizations such as latter-day groups, unions, fraternal or athletic groups, or [...] medical care, and heating? Somewhat hard 01/11/2025 [facility] of Occupat ional Health - Occupational Stress [...] any time in the past 12 m [facility], were you homeless or living in a halfway (including now)? No 01/11/2025 Sexually Active Control [...] Procedure Name Priority Date/Time Associated Diagnosis Comments [facility] US BREAST LIMITED RT Routine 02/18/2025 9:35 AM CDT Abnormal mammogram [facility] DIAG BILATERAL DIGITAL W CAD W [...] signed by: Cris Quintana M.D. ab/:02/18/2025 09:33:34 Assisted Sales Representative(s): Jana Mei, RT(R)(M), [facility]; Jessica Vazquez RDMS OBGYN, [facility] letter sent: Normal Exam Abnormal History Reading location: [facility] OVERALL STUDY BIRADS: Category 1: Negative Procedure [...] signed by: Cris Quintana M.D. ab/:02/18/2025 09:33:34 Assisted Sales Representative(s): RT Jocelin(R)(M), [facility]; Jessica Vazquez RDMS [facility]URU, [facility] letter sent: Normal Exam Abnormal History Reading location: [facility] OVERALL STUDY BIRADS: Category 1: Negative us [...] signed by: Cris Quintana M.D. ab/:02/18/2025 09:33:34 Assisted Sales Representative(s): RT Jocelin(R)(M), [facility]; MARCELO Rowley, [facility] letter sent: Normal Exam Abnormal History Reading location: [facility] OVERALL STUDY BIRADS: Category 1: Negative Procedure Note Cris Quintana MD - 02/18/2025 - [facility] DIAG BILATERAL DIGITAL W CAD W [facility] [facility] US BREAST LIMITED RT BILATERAL DIGITAL DIAGNOSTIC MAMMOGRAM 3D/2D WITH CAD WITH MEDIOLATERAL OBLIQUE CRANIOCAUDAL AND TARGETED RIGHT ULTRASOUND: 02/18/2025 The study was acquired using digital technology and interpreted from soft copy. Current study was also evaluated with YesPlz! version 7.2. 2D digital mammographic views, as [...] signed by: Cris Quintana M.D. ab/:02/18/2025 09:33:34 Assisted Sales Representative(s): RT Jocelin(R)(M), [facility]; MARCELO Rowley, [facility] letter sent: Normal Exam Abnormal History Reading location: [facility] OVERALL STUDY BIRADS: Category 1: Negative us [...] R Carrillo M.D. KT: SHUN Report ID: [id number] Reading Location: [place] [address] Procedure Note Jose R Carrillo MD - [...] R Carrillo M.D. KT: SHUN Report ID: [id number] Reading Location: [id number] IMPRESSION: 1. No obstructing renal or ureteral calculus. 2. Punctate nonobstructing bilateral renal stones. 3. Fatty infiltration of the liver. 4. Surgical absence of the gallbladder. 5. Diverticulosis. No evidence of diverticulitis. Mike Melgar MD IMG CT ORDERABLES Final R esult * Urinalysis w/ Reflex (02/05/2025 11:10 PM CDT) SPECIFIC GRAVITY 1.010 1.003 - 1.030 02/06/2025 12:01 AM CDT [facility] URINE PH 6.0 5.0 - 9.0 02/06/2025 12:01 AM CDT [facility] WBC ESTERASE Negative Negative 02/06/2025 12:01 AM CDT [facility] NITRITE Negative Negative 02/06/2025 12:01 AM CDT [facility] PROTEIN, RANDOM URINE Negative Negative 02/06/2025 12:01 AM CDT [facility] URINE GLUCOSE, QUAL Negative Negative 02/06/2025 12:01 AM CDT [facility] URINE KETONES Negative Negative 02/06/2025 12:01 AM CDT [facility] UROBILINOGEN Normal Normal mg/dL 02/06/2025 12:01 AM CDT [facility] URINE BLOOD Negative Negative thais/ul 02/06/2025 12:01 AM CDT [facility] URINALYSIS COLOR Yellow 02/07/20 12:01 AM CDT [facility] URINALYSIS CLARITY Clear 02/06/2025 12:01 AM CDT [facility] Urine URINE SPECIMEN OBTAINED BY CLEAN CATCH PROCEDURE / Unknown Non-Phlebotomy Collection / Unknown 02/05/2025 11:10 PM CDT 02/05/2025 11:52 PM CDT Mike Melgar MD URINE ORDERABLES Final Re sult [facility] [address] [place] [address] * (ABNORMAL) CBC with Auto Differential (02/05/2025 10:58 PM CDT) WBC 9.30 4.00 - 12.00 10(3)/mcL 02/05/2025 11:20 PM CDT [facility] RBC 4.96 3.80 - 5.30 10(6)/mcL 02/05/2025 11:20 PM CDT [facility] HEMOGLOBIN (HGB) 15.1 12.0 - 15.8 g/dL 02/05/2025 11:20 PM CDT [facility] HEMATOCRIT (HCT) 43.4 36.0 - 47.0 % 02/05/2025 11:20 PM CDT [facility] MCV 87.5 82.0 - 96.0 fL 02/05/2025 11:20 PM CDT [facility] MCH 30.4 26.0 - 34.0 pg 02/05/2025 11:20 PM CDT [facility] MCHC 34.8 31.0 - 36.0 g/dL 02/05/2025 11:20 PM CDT [facility] PLATELET COUNT 263 140 - 440 10(3)/mcL 02/05/2025 11:20 PM CDT [facility] RDW 12.3 11.8 - 15.5 % 02/05/2025 11:20 PM CDT [facility] MPV 9.6(L) 9.7 - 12.4 fL 02/05/2025 11:20 PM CDT [facility] NEUTROPHILS 59.3 47.0 - 73.0 % 02/05/2025 11:20 PM CDT [facility] LYMPHOCYTES 30.9 18.0 - 42.0 % 02/05/2025 11:20 PM CDT [facility] MONOCYTES 7.4 4.0 - 12.0 % 02/05/2025 11:20 PM CDT [facility] EOSINOPHILS 1.6 0.0 - 5.0 % 02/05/2025 11:20 PM CDT [facility] BASOPHILS 0.5 0.0 - 1.0 % 02/05/2025 11:20 PM CDT [facility] IMMATURE GRANULOCYTE 0.3 0.0 - 0.4 % 02/05/2025 11:20 PM CDT [facility] Comment:Immature Granulocyte s includes Metamyelocytes, Myelocytes, and Promyelocytes. ABSOLUTE NEUTROPHILS 5.51 1.60 - 7.70 10(3)/[facility] 02/05/2025 11:20 PM CDT [facility] ABSOLUTE LYMPHOCYTES 2.87 1.30 - 3.20 10(3)/[facility] 02/05/2025 11:20 PM CDT [facility] ABSOLUTE MONOCYTES 0.69 0.20 - 1.00 10(3)/[facility] 02/05/2025 11:20 PM CDT [facility] ABSOLUTE EOSINOPHIL 0.15 0.00 - 0.40 10(3)/[facility] 02/05/2025 11:20 PM CDT [facility] ABSOLUTE BASOPHILS 0.05 0.00 - 0.10 10(3)/[facility] 02/05/2025 11:20 PM CDT [facility] ABSOLUTE IMMATURE GRANULOCYTE 0.03 0.00 - 0.03 10 (3) [facility]. 02/05/2025 11:20 PM CDT [facility] NRBC PER 100 WBC 0 02/06/20 11:20 PM CDT [facility] Blood Venipuncture / Unknown 02/05/2025 10:58 PM CDT 02/05/2025 11:18 PM CDT us Mike Melgar MD HEMATOLOGY ORDERABLES Fin al Result [facility] [address] [place] [address] * Magnesium Level (02/05/2025 10:58 PM CDT) Pathologist [facility] MAGNESIUM 1.8 1.6 - 2.6 mg/dL 02/05/2025 11:43 PM CDT [facility] Blood Venipuncture / Unknown 02/05/2025 10:58 PM CDT 02/05/2025 11:18 PM CDT us Mike Melgar MD CHEMISTRY ORDERABLES Sandra l Result [facility] [address] [place] [address] * Lipase (02/05/2025 10:58 PM CDT) Pathologist [facility] LIPASE 22 8 - 78 U/L 02/05/2025 11:43 PM CDT [facility] Blood Venipuncture / Unknown 02/05/2025 10:58 PM CDT 02/05/2025 11:18 PM CDT Mike Melgar MD CHEMISTRY ORDERABLES Sandra l Result Performing Organization Address City/[facility]/ZIP Co de Phone Number [facility] [address] [place] [address] * (ABNORMAL) CMP (02/05/2025 10:58 PM CDT) Pathologist [facility] SODIUM 137 136 - 145 mmol/L 02/05/2025 11:43 PM CDT [facility] POTASSIUM 3.0(L) 3.5 - 5.1 mmol/L 02/05/2025 11:43 PM CDT [facility] CHLORIDE 105 98 - 107 mmol/L 02/05/2025 11:43 PM CDT [facility] CO2, VENOUS 22 22 - 30 mmol/L 02/05/2025 11:43 PM CDT [facility] ANION GAP 13.0 <18.0 mmol/L 02/05/2025 11:43 PM [facility] GLUCOSE 77 70 - 99 mg/dL 02/05/2025 11:43 PM T [facility] BUN 7 5 - 18 mg/dL 02/05/2025 11:43 PM [facility] CREATININE, BLOOD 0.71 0.60 - 1.00 mg/dL 02/05/2025 11:43 PM [facility] BUN/CREATININE RATIO 10(L) 12 - 20 ratio 02/05/2025 11:43 PM [facility] TOTAL PROTEIN 7.9 6.0 - 8.0 g/dL 02/05/2025 11:43 PM [facility] ALBUMIN 4.7 3.5 - 5.0 g/dL 02/05/2025 11:43 PM [facility] A/G RATIO 1.5 1.0 - 2.2 02/05/2025 11:43 PM [facility] CALCIUM 9.2 8.7 - 10.5 mg/dL 02/05/2025 11:43 PM [facility] T BILI 0.6 0.2 - 1.2 mg/dL 02/05/2025 11:43 PM [facility] SGOT (AST) 43(H) <43 U/L 02/05/2025 11:43 PM [facility] SGPT (ALT) 61(H) <56 U/L 02/05/2025 11:43 PM [facility] ALKALINE PHOSPHATASE 89 40 - 150 U/L 02/05/2025 11:43 PM [facility] GFR, ESTIMATED >60 >=60 02/05/2025 11:43 PM [facility] Comment: Creatinine Clearance is the preferred criteria for selecting drug dose adjustments in renally impaired patients. The GFR is provided as additional pertinent clinical information. GFR is reported in mL/min/1.73 sq m. Calculation based on the Chronic Kidney Disease Epidemiology Collaboration (CKD- EPI) equation refit without adjustment for race. GFR, EST. >60 >=60 025 11:43 PM CDT [facility] GFR, EST. NONAFRICAN >60 >=60 02/05/2025 11:43 PM CDT [facility] Blood Venipuncture / Unknown 02/05/2025 10:58 PM CDT 02/05/2025 11:18 PM CDT us Mike Melgar MD CHEMISTRY ORDERABLES Sandra l Result Performing Organization Address City/[facility]/ZIP Co de Phone Number [facility] [address] [place] [address] * INTERNAL MEDICINE CONSULT (12/09/2024 12:00 AM CDT) 12/09/2024 us Provider Scan GENERIC SCAN ORDERS CONSULT Sandra l Result SCAN from Last 3 Months Insurance MEDICAID [place] Care Teams Soyfreeze Operator Relationship Specialty Start Date End Date Damian Diamond MD [id number] [address] PCP - General Family Medicine 01/13/25
--- OUTSIDE RECORDS SUMMARY | 2025-02-21 19:14 | XMS_ITS | Referral Summary ---
Author Organization [facility] Address [address] [place] [address] Care Team Providers Care Searchlight Operator Name Role Phone Guanakojasper Lucas Homero BELL Primary Care Provider [phone] Encounters Date Type Department Care Team Description 02/19/2025 5:24 PM CDT - 02/19/2025 11:02 PM CDT Emergency [facility] Emergency Department [address] [place] [phone] Laci Vo MD Hypertensive urgency (Primary Dx); Cystic disease of ovary; Abdominal pain Discharge Disposition: Discharge to home or self care 02/19/2025 3:15 PM CDT Office Visit Obstetrics and Gynecology Clinic [facility] 3rd Floor [address] [place] [address] Christina Torres MD Pelvic pain 02/16/2025 Orders Only [address] [phone] Olivia Caro MD Pain in female pelvis (Primary Dx) 02/15/2025 11:39 PM CDT - 02/16/2025 5:51 AM CDT Emergency [facility] Emergency Department [address] [place] [phone] Mine Arias MD Hemorrhagic ovarian cyst (Primary Dx); Hypertension, unspecified type; Pelvic pain Discharge Disposition: Discharge to home or self care 01/27/2025 2:29 AM CDT - 01/27/2025 7:19 AM CDT Emergency [facility] Emergency Department [address] [place] [address] Evan Velazquez MD Pelvic pain (Primary Dx) Discharge Disposition: Discharge to home or self care from Last 3 Months Allergies Active Allergy Reactions Criticality Noted Date Comments Hydralazine Headache,Vomiting Low 01/21/2024 Ketorolac Hives,Itching Medium 10/17/2017 Tramadol Hives,Urticaria Medium 08/27/2016 Medications omeprazole (PriLOSEC) 20 mg capsuleIndications :Treatment of Non-Bleeding Gastric Disorder Take 1 capsule (20 mg total) by mouth reed repairer before breakfast Active MULTIVIT-MINERALS/ FERROUS FUM (MULTI VITAMIN ORAL)Indications:h ealth Take 1 tablet by mouth reed repairer before breakfast Active ondansetron ODT (ZOFRAN-ODT) 4 [...] 1 tablet (25 mg total) by mouth reed repairer before breakfast Active nebivoloL (BYSTOLIC) 10 mg [...] on file 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 Medical Devices Implanted Type Area Paralegal Internship Device Identifier Shelf Expiration Date Model / [...] CONTRAST ED 02/19/2025 6 :23 PM CDT [place] CRITICAL CARE ILL/INJURED PATIENT INIT 30-74 MIN [...] BLOOD ORDERABLES Fi nal Result [facility] Department [place] [address] * (ABNORMAL) Urinalysis reflex to microscopic and culture Urine, clean voided (02/19/2025 8:42 PM CDT) Color, ur Yellow Yellow Clarity, ur Cloudy(A) Clear [facility] Specific gravity, ur 1.030 1.003 - 1.030 [facility] pH, urine 6.0 [facility] Comment: Interpretive Data U rine pH is affected by diet, medications, systemic acid-base disturbances, and renal tubular function. pH may affect urinary stone formation. For example, urine pH below 6.0 may help reduce the tendency for calcium phosphate stones and pH greater than 6.0 may reduce the tendency for uric acid stone formation. Source: [facility] Current Interpretive Data was last revised on 2017 Protein, ur ql Trace Negative [facility] Glucose, ur ql Negative Negative [facility] Ketones, ur Negative Negative [facility] Bilirubin, ur Negative Negative [facility] Blood, ur 2+(A) Negative [facility] Urobilinogen, ur <2.0 <2.0 mg/dL [facility] Nitrite, ur Negative Negative [facility] Leukocyte esterase, ur Negative Negative [facility] UA reflex comment Reflex to microscopic UA will be performed. [facility] Urine, clean voided 02/19/2025 8:42 PM CDT 02/19/2025 8:49 PM CDT Devnate Freedman MD LAB MICROBIOLOGY - GENE RAL ORDERABLES Final Result [facility] Department [place] [address] * (ABNORMAL) Urinalysis, microscopic only (02/19/2025 8:42 PM CDT) WBC, ur 6-10(A) 0 - 5 /HPF RBC, ur 21-50(A) 0 - 2 /HPF [facility] Epithelial cells, squamous, ur 11-20(A) 0 - 5 /HPF [facility] Comment:Suggestive of contam ination. Consider recollection by clean catch. Mucous, ur Present(A) [facility] Culture Reflex Comment Reflex conditions for urine culture (WBC >10) not met. [facility] Urine, clean voided 02/19/2025 8:42 PM CDT 02/19/2025 8:49 PM CDT Devante Freedman MD LAB URINE ORDERABLES Fi nal Result Performing Organization Address [facility] Co de Phone Number [facility] Department [place] [employer] [address] * Troponin I high-sensitivity 2-hour (02/19/2025 8:41 PM CDT) Trop I hs 6 <=17 ng/L Comment: Interpretive Data For further hscTnI resources including the diagnostic algorithm and an aid in interpretation, copy and paste this link: https://bjhlab.testcatalog.org/show/[email or web address] Current Interpretive Data last revised 2020. Trop I hs delta -1 ng/L [facility] Trop I hs interp Insignificant [facility] Blood 02/19/2025 8:41 PM CDT 02/19/2025 8:53 PM CDT Devante Freedman MD LAB BLOOD ORDERABLES Fi nal Result Performing Organization Address [facility]/ZIP Co de Phone Number [facility] [place] [employer] [place] [address] * ECG 12-LEAD (02/19/2025 7:20 PM CDT) Narrative MUSE BJ - 02/19/2025 7:20 PM CDT Laci Vo MD 02/19/2025 7:20 PM ECG 12 lead Date/Time: 02/19/2025 7:20 PM Performed by: Laci Vo MD Authorized by: Devante Freedman MD Rate: ECG rate: Rate 67, narrow complex, regular, sinus, no STEMI Devante Freedman MD ECG ORDERABLES Final R esult Performing Organization Address [facility] Co de Phone Number [facility] * aPTT (02/19/2025 7:13 PM CDT) aPTT [...] nal Result Performing Organization Address [facility] de Phone Number [facility] Department [place] [address] * Type and screen (02/19/2025 7:13 PM CDT) Pathologist [facility] ABO Rh B Positive Jorge, indirect Negative [facility] Blood 02/19/2025 7:13 PM CDT 02/19/2025 7:31 PM CDT Narrative [facility] - 02/19/2025 8:27 PM CDT Has the patient had Daratumumab or Isatuximab in the past 6 months?->Unknown Result [facility] Devante Freedman MD LAB BLOOD BANK TEST ORD ERABLES Final Result Performing Organization Address [facility] Co de Phone Number [facility] Department [place] [address] * XR Chest PA Lateral 2 Views [...] MD IM CT PROCEDURES Final Result * [place] CRITICAL CARE ILL/INJURED PATIENT INIT 30-74 MIN (02/19/2025 5:47 PM CDT) Narrative Laci Vo MD - 02/19/2025 5:47 PM CDT Laci Vo MD 02/19/2025 11:18 PM Critical Care Performed by: Laci oV MD Authorized by: Laci Vo MD Critical [...] MD LAB BLOOD ORDERABLES Fi nal Result [facility] Department [place] [address] * Differential, auto (02/19/2025 5:47 PM CDT) Neutrophil abs 4.35 1.50 - 6.50 K/cumm Imm gran abs 0.02 0.00 - 0.10 K/cumm [facility] Lymphocyte abs 2.31 0.80 - 3.30 K/cumm [facility] Monocyte abs 0.56 0.20 - 0.80 K/cumm [facility] Eosinophil abs 0.14 0.00 - 0.50 K/cumm [facility] Basophil abs 0.03 0.00 - 0.10 K/cumm [facility] Neutrophil pct 58.6 % [facility] Comment: Interpretive Data Percent cell count reference ranges are not reported, since discordance with absolute values may lead to misinterpretation of CBC data. Current Interpretive Data was last revised on 2017. Imm gran pct 0.3 % [facility] Comment: Interpretive Data Percent cell count reference ranges are not reported, since discordance with absolute values may lead to misinterpretation of CBC data. Current Interpretive Data was last revised on 2017. Lymphocyte pct 31.2 % [facility] Comment: Interpretive Data Percent cell count reference ranges are not reported, since discordance with absolute values may lead to misinterpretation of CBC data. Current Interpretive Data was last revised on 2017. Monocyte pct 7.6 % [facility] Comment: Interpretive Data Percent cell count reference ranges are not reported, since discordance with absolute values may lead to misinterpretation of CBC data. Current Interpretive Data was last revised on 2017. Eosinophil pct 1.9 % [facility] Comment: Interpretive Data Percent cell count reference ranges are not reported, since discordance with absolute values may lead to misinterpretation of CBC data. Current Interpretive Data was last revised on 2017. Basophil pct 0.4 % [facility] Comment: Interpretive Data Percent cell count reference ranges are not reported, since discordance with absolute values may lead to misinterpretation of CBC data. Current Interpretive Data was last revised on 2017. Blood 02/19/2025 5:47 PM CDT 02/19/2025 5:55 PM CDT Devante Freedman MD LAB BLOOD ORDERABLES Fi nal Result Performing Organization Address [facility]/ZIP Co de Phone Number [facility] Department [place] [employer] [place] [address] * (ABNORMAL) CBC with auto differential (02/19/2025 5:47 PM CDT) WBC 7.41 3.80 - 9.90 K/cumm Hgb 14.9 11.9 - 15.5 g/dL [facility] Hct 41.1 35.6 - 45.5 % [facility] Plt 214 150 - 400 K/cumm [facility] MPV 9.4 9.1 - 12.3 fL [facility] RBC 4.78 3.90 - 5.20 M/cumm [facility] MCV 86.0 81.3 - 96.4 fL [facility] MCH 31.2 27.1 - 33.3 pg [facility] MCHC 36.3(H) 32.3 - 35.7 g/dL [facility] RDW CV 12.6 11.1 - 14.9 % [facility] RDW SD 39.3 35.7 - 48.1 fL [facility] NRBC abs 0.00 0.00 - 0.01 K/cumm [facility] Blood 02/19/2025 5:47 PM CDT 02/19/2025 5:55 PM CDT Devante Freedman MD LAB BLOOD ORDERABLES Fi nal Result Performing Organization Address [facility]/ZIP Co de Phone Number [facility] Department [place] [address] * (ABNORMAL) Comprehensive metabolic panel (02/19/2025 5:47 PM CDT) Sodium 137 135 - 145 mmol/L Potassium, pl 4.1 3.3 - 4.9 mmol/L [facility] Chloride 105 97 - 110 mmol/L [facility] CO2 25 22 - 32 mmol/L [facility] Anion gap 7 2 - 15 mmol/L [facility] BUN 13 6 - 25 mg/dL [facility] Creatinine 0.70 0.60 - 1.10 mg/dL [facility] Glucose 75 70 - 199 mg/dL [facility] Comment: Interpretive Data Fasting glucose >/= 126 [...] 2022. Calcium 9.4 8.5 - 10.3 mg/dL [facility] Bilirubin, total 0.4 0.1 - 1.2 mg/dL [facility] Protein, pl 7.6 6.5 - 8.5 g/dL [facility] Albumin 4.4 3.5 - 5.0 g/dL [facility] Alk phos 93 40 - 130 Units/L [facility] ALT 84(H) 7 - 45 Units/L [facility] AST 93(H) 10 - 45 Units/L [facility] Blood 02/19/2025 5:47 PM CDT 02/19/2025 5:55 PM CDT us Devante Freedman MD LAB BLOOD ORDERABLES Fi nal Result [facility] Department [place] [address] * Troponin I high-sensitivity series (baseline, 2hr, [...] MD LAB BLOOD ORDERABLES Fi nal Result [facility] Department [place] [address] * Urinalysis reflex to microscopic (02/15/2025 11:53 PM CDT) Color, ur Straw Yellow Clarity, ur Clear Clear [facility] Specific gravity, ur 1.007 1.003 - 1.030 [facility] pH, urine 6.0 [facility] Comment: Interpretive Data U rine pH is affected by diet, medications, systemic acid-base disturbances, and renal tubular function. pH may affect urinary stone formation. For example, urine pH below 6.0 may help reduce the tendency for calcium phosphate stones and pH greater than 6.0 may reduce the tendency for uric acid stone formation. Source: [facility] [employer] Current Interpretive Data was last revised on 2017 Protein, ur ql Negative Negative [facility] Glucose, ur ql Negative Negative [facility] Ketones, ur Negative Negative [facility] Bilirubin, ur Negative Negative [facility] Blood, ur Negative Negative [facility] Urobilinogen, ur <2.0 <2.0 mg/dL [facility] Nitrite, ur Negative Negative [facility] Leukocyte esterase, ur Negative Negative [facility] UA reflex comment Reflex conditions for microscopic UA not met. [facility] Urine 02/15/2025 11:5 3 PM CDT 02/15/2025 11:59 PM CDT us Mine Arias MD LAB URINE ORDERABLES Final Result [facility] Department [place] [address] * POCT hCG, urine (02/15/2025 11:49 PM [...] MD LAB BLOOD ORDERABLES Final Result [facility] Department [place] [address] * (ABNORMAL) Differential, auto (02/15/2025 11:44 PM CDT) Neutrophil abs 6.35 1.50 - 6.50 K/cumm Imm gran abs 0.04 0.00 - 0.10 K/cumm [facility] Lymphocyte abs 2.80 0.80 - 3.30 K/cumm [facility] Monocyte abs 0.81(H) 0.20 - 0.80 K/cumm [facility] Eosinophil abs 0.10 0.00 - 0.50 K/cumm [facility] Basophil abs 0.05 0.00 - 0.10 K/cumm [facility] Neutrophil pct 62.5 % [facility] Comment: Interpretive Data Percent cell count reference ranges are not reported, since discordance with absolute values may lead to misinterpretation of CBC data. Current Interpretive Data was last revised on 2017. Imm gran pct 0.4 % [facility] Comment: Interpretive Data Percent cell count reference ranges are not reported, since discordance with absolute values may lead to misinterpretation of CBC data. Current Interpretive Data was last revised on 2017. Lymphocyte pct 27.6 % [facility] Comment: Interpretive Data Percent cell count reference ranges are not reported, since discordance with absolute values may lead to misinterpretation of CBC data. Current Interpretive Data was last revised on 2017. Monocyte pct 8.0 % [facility] Comment: Interpretive Data Percent cell count reference ranges are not reported, since discordance with absolute values may lead to misinterpretation of CBC data. Current Interpretive Data was last revised on 2017. Eosinophil pct 1.0 % [facility] Comment: Interpretive Data Percent cell count reference ranges are not reported, since discordance with absolute values may lead to misinterpretation of CBC data. Current Interpretive Data was last revised on 2017. Basophil pct 0.5 % [facility] Comment: Interpretive Data Percent cell count reference ranges are not reported, since discordance with absolute values may lead to misinterpretation of CBC data. Current Interpretive Data was last revised on 2017. Blood 02/15/2025 11:4 4 PM CDT 02/15/2025 11:58 PM CDT Mine Arias MD LAB BLOOD ORDERABLES Final Result [facility] Department [place] [address] * (ABNORMAL) CBC with auto differential (02/15/2025 11:44 PM CDT) WBC 10.15(H) 3.80 - 9.90 K/cumm Hgb 15.7(H) 11.9 - 15.5 g/dL [facility] Hct 43.5 35.6 - 45.5 % [facility] Plt 229 150 - 400 K/cumm [facility] MPV 9.8 9.1 - 12.3 fL [facility] RBC 5.06 3.90 - 5.20 M/cumm [facility] MCV 86.0 81.3 - 96.4 fL [facility] MCH 31.0 27.1 - 33.3 pg [facility] MCHC 36.1(H) 32.3 - 35.7 g/dL [facility] RDW CV 12.6 11.1 - 14.9 % [facility] RDW SD 38.7 35.7 - 48.1 fL [facility] NRBC abs 0.00 0.00 - 0.01 K/cumm [facility] Blood Venous blood specimen / Unknown 02/15/2025 11:44 PM CDT 02/15/2025 11:58 PM CDT Mine Arias MD LAB BLOOD ORDERABLES Final Result [facility] [place] [address] * Lipase (02/15/2025 11:44 PM CDT) Lipase 24 10 - 99 Units/L Blood Venous blood specimen / Unknown 02/15/2025 11:44 PM CDT 02/15/2025 11:58 PM CDT Mine Arias MD LAB BLOOD ORDERABLES Final Result [facility] [place] [address] * Comprehensive metabolic panel (02/15/2025 11:44 PM CDT) Sodium 141 135 - 145 mmol/L Potassium, pl 3.7 3.3 - 4.9 mmol/L [facility] Chloride 105 97 - 110 mmol/L [facility] CO2 23 22 - 32 mmol/L [facility] Anion gap 13 2 - 15 mmol/L [facility] BUN 9 6 - 25 mg/dL [facility] Creatinine 0.63 0.60 - 1.10 mg/dL [facility] Glucose 79 70 - 199 mg/dL [facility] Comment: Interpretive Data Fasting glucose >/= 126 [...] 2022. Calcium 9.7 8.5 - 10.3 mg/dL [facility] Bilirubin, total 0.3 0.1 - 1.2 mg/dL [facility] Protein, pl 7.8 6.5 - 8.5 g/dL [facility] Albumin 4.4 3.5 - 5.0 g/dL [facility] Alk phos 97 40 - 130 Units/L [facility] ALT 44 7 - 45 Units/L [facility] AST 34 10 - 45 Units/L [facility] Blood 02/15/2025 11:4 4 PM CDT 02/15/2025 11:58 PM CDT us Mine Arias MD LAB BLOOD ORDERABLES Final Result Performing Organization Address [facility] Co de Phone Number [facility] Department [place] [address] * (ABNORMAL) Urinalysis reflex to microscopic (01/27/2025 5:33 AM CDT) Color, ur Straw Yellow Clarity, ur Clear Clear [facility] Specific gravity, ur >1.042(H) 1.003 - 1.030 [facility] pH, urine 6.5 [facility] Comment: Interpretive Data U rine pH is affected by diet, medications, systemic acid-base disturbances, and renal tubular function. pH may affect urinary stone formation. For example, urine pH below 6.0 may help reduce the tendency for calcium phosphate stones and pH greater than 6.0 may reduce the tendency for uric acid stone formation. Source: [facility] Current Interpretive Data was last revised on 2017 Protein, ur ql 1+(A) Negative [facility] Glucose, ur ql Negative Negative [facility] Ketones, ur Negative Negative [facility] Bilirubin, ur Negative Negative [facility] Blood, ur Negative Negative [facility] Urobilinogen, ur <2.0 <2.0 mg/dL [facility] Nitrite, ur Negative Negative [facility] Leukocyte esterase, ur Negative Negative [facility] UA reflex comment Reflex to microscopic UA will be performed. [facility] Urine 01/27/2025 5:33 AM CDT 01/27/2025 5:40 AM CDT us Evan Velazquez MD LAB URINE ORDERABLES Final Resul t Performing Organization Address [facility] Co de Phone Number [facility] Department [place] [address] * (ABNORMAL) Urinalysis, microscopic only (01/27/2025 5:33 AM CDT) WBC, ur 0-5 0 - 5 /HPF RBC, ur 0-2 0 - 2 /HPF [facility] Epithelial cells, squamous, ur 1-5 0 - 5 /HPF [facility] Bacteria, ur Trace(A) [facility] Mucous, ur Present(A) [facility] Urine 01/27/2025 5:33 AM CDT 01/27/2025 5:40 AM CDT Evan Velazquez MD LAB URINE ORDERABLES Final Resul t Performing Organization Address [facility] de Phone Number [facility] [place] [employer] [place] [address] * aPTT (01/27/2025 5:33 AM CDT) Pathologist [facility] aPTT 33 28 - 38 sec Comment: Interpretive Data Heparin therapeutic range: 66.0 - 100.0 seconds. Range based on correlation with therapeutic heparin activity range of 0.3 - 0.7 Units/mL. Current interpretive data was last revised on 2023. Blood 01/27/2025 5:33 AM CDT 01/27/2025 5:40 AM CDT Evan Velazquez MD LAB BLOOD ORDERABLES Final Resul t Performing Organization Address [facility] de Phone Number [facility] Department [place] [employer] [place] [address] * (ABNORMAL) Protime-INR (01/27/2025 5:33 AM CDT) Pathologist [facility] PT 14.2(H) 9.7 - 13.0 sec INR 1.31(H) 0.90 - 1.20 [facility] Comment: Interpretive data Oral anticoagulant therapeutic ranges: Venous thromboembolism prophylaxis or treatment: 2.0-3.0 CARDIOLOGY Standard range: 2.0-3.0 High-intensity range: 2.5-3.5 Refer to indication-specific guidelines for appropriate target ranges for prosthetic heart valve replacement. Current interpretive data was last revised on 2019. Blood 01/27/2025 5:33 AM CDT 01/27/2025 5:40 AM CDT us Evan Velazquez MD LAB BLOOD ORDERABLES Final Resul t [facility] Department [place] [address] * POCT hCG, urine (01/27/2025 5:28 AM [...] Date Notified [id number] Time Notified 525 [facility] TestName PTT,PT,TT CHAR[facility]EN PINTO Called/Read Back Mishel [facility] Credentials KHADAR [facility] Called By YUE SINGH Blood 01/27/2025 3:05 AM CDT 01/27/2025 3:17 AM CDT Jorge Jerome MD LAB BLOOD ORDERABLES Final Res ult Performing Organization Address [facility]/ZIP Co de Phone Number [facility] [place] [address] * aPTT (01/27/2025 3:05 AM CDT) aPTT See Comment 28 - 38 sec Comment: Interpretive Data Heparin therapeutic range: 66.0 - 100.0 seconds. Range based on correlation with therapeutic heparin activity range of 0.3 - 0.7 Units/mL. Current interpretive data was last revised on 2023. No clot detected in sample Repeated and verified - [id number] - 01/27/25, 4:41 AM Repeated and verified. Credited: Sample investigated and is suggestive of an improper collection (e.g., IV fluid contamination, improper tube type). Deleted at the Request of Mishel MOHAN on 01/27/2025 05:30:06 CDT by YUE . Blood 01/27/2025 3:05 AM CDT 01/27/2025 3:17 AM CDT Jorge Jerome MD LAB BLOOD ORDERABLES Edited Re sult - Final Performing Organization Address [facility]/ZIP Co de Phone Number [facility] [employer] [address] * Thrombin time (01/27/2025 3:05 AM CDT) [...] Re sult - Final Performing Organization Address [facility] de Phone Number [facility] [place] [address] * Protime-INR (01/27/2025 3:05 AM CDT) PT See Comment 9.7 - 13.0 sec Comment: Repeated and verified. Credited: Sample investigated and is suggestive of an improper collection (e.g., IV fluid contamination, improper tube type). Deleted at the Request of Mishel MOHAN on 01/27/2025 05:30:06 CDT by YUE . INR See Comment 0.90 - 1.20 [facility] Comment: Interpretive data Oral anticoagulant therapeutic ranges: [...] Re sult - Final Performing Organization Address [facility]/ZIP Co de Phone Number [facility] [place] [address] * Type and screen (01/27/2025 3:05 AM CDT) Jorge, indirect Negative ABO Rh B Positive [facility] Blood 01/27/2025 3:05 AM CDT 01/27/2025 3:23 AM CDT Narrative [facility] - 01/27/2025 4:11 AM CDT Has the patient had Daratumumab or Isatuximab in the past 6 months?->Unknown us Jorge Jerome MD LAB BLOOD BANK TEST ORDERABLES Final Result [facility] [place] [address] * eGFR (01/27/2025 2:47 AM CDT) eGFR [...] ORDERABLES Sandra l Result [facility] [place] [address] * Differential, auto (01/27/2025 2:47 AM CDT) Neutrophil abs 5.16 1.50 - 6.50 K/cumm Imm gran abs 0.02 0.00 - 0.10 K/cumm [facility] Lymphocyte abs 2.32 0.80 - 3.30 K/cumm [facility] Monocyte abs 0.76 0.20 - 0.80 K/cumm [facility] Eosinophil abs 0.09 0.00 - 0.50 K/cumm [facility] Basophil abs 0.05 0.00 - 0.10 K/cumm [facility] Neutrophil pct 61.5 % [facility] Comment: Interpretive Data Percent cell count reference ranges are not reported, since discordance with absolute values may lead to misinterpretation of CBC data. Current Interpretive Data was last revised on 2017. Imm gran pct 0.2 % [facility] Comment: Interpretive Data Percent cell count reference ranges are not reported, since discordance with absolute values may lead to misinterpretation of CBC data. Current Interpretive Data was last revised on 2017. Lymphocyte pct 27.6 % [facility] Comment: Interpretive Data Percent cell count reference ranges are not reported, since discordance with absolute values may lead to misinterpretation of CBC data. Current Interpretive Data was last revised on 2017. Monocyte pct 9.0 % [facility] Comment: Interpretive Data Percent cell count reference ranges are not reported, since discordance with absolute values may lead to misinterpretation of CBC data. Current Interpretive Data was last revised on 2017. Eosinophil pct 1.1 % [facility] Comment: Interpretive Data Percent cell count reference ranges are not reported, since discordance with absolute values may lead to misinterpretation of CBC data. Current Interpretive Data was last revised on 2017. Basophil pct 0.6 % [facility] Comment: Interpretive Data Percent cell count reference ranges are not reported, since discordance with absolute values may lead to misinterpretation of CBC data. Current Interpretive Data was last revised on 2017. Blood 01/27/2025 2:47 AM CDT 01/27/2025 2:59 AM CDT Evan Velazquez MD LAB BLOOD ORDERABLES Final Resul t Performing Organization Address City[facility]/ZIP Co de Phone Number [facility] [place] [address] * CBC with auto differential (01/27/2025 2:47 AM CDT) WBC 8.40 3.80 - 9.90 K/cumm Hgb 15.4 11.9 - 15.5 g/dL [facility] Hct 43.1 35.6 - 45.5 % [facility] Plt 264 150 - 400 K/cumm [facility] MPV 9.6 9.1 - 12.3 fL [facility] RBC 5.02 3.90 - 5.20 M/cumm [facility] MCV 85.9 81.3 - 96.4 fL [facility] MCH 30.7 27.1 - 33.3 pg [facility] MCHC 35.7 32.3 - 35.7 g/dL [facility] RDW CV 12.8 11.1 - 14.9 % [facility] RDW SD 40.1 35.7 - 48.1 fL [facility] NRBC abs 0.00 0.00 - 0.01 K/cumm [facility] Blood Venous blood specimen / Unknown 01/27/2025 2:47 AM CDT 01/27/2025 2:59 AM CDT Evan Velazquez MD LAB BLOOD ORDERABLES Final Resul t Performing Organization Address [facility]/ZIP Co de Phone Number [facility] Department [place] [address] * (ABNORMAL) Comprehensive metabolic panel (01/27/2025 2:47 AM CDT) Sodium 139 135 - 145 mmol/L Potassium, pl 3.5 3.3 - 4.9 mmol/L [facility] Chloride 104 97 - 110 mmol/L [facility] CO2 22 22 - 32 mmol/L [facility] Anion gap 13 2 - 15 mmol/L [facility] BUN 10 6 - 25 mg/dL [facility] Creatinine 0.68 0.60 - 1.10 mg/dL [facility] Glucose 99 70 - 199 mg/dL [facility] Comment: Interpretive Data Fasting glucose >/= 126 [...] 2022. Calcium 9.3 8.5 - 10.3 mg/dL [facility] Bilirubin, total 0.5 0.1 - 1.2 mg/dL [facility] Protein, pl 8.3 6.5 - 8.5 g/dL [facility] Albumin 4.6 3.5 - 5.0 g/dL [facility] Alk phos 105 40 - 130 Units/L [facility] ALT 67(H) 7 - 45 Units/L [facility] AST 55(H) 10 - 45 Units/L [facility] Blood 01/27/2025 2:47 AM CDT 01/27/2025 2:59 AM CDT us Evan Velazquez MD LAB BLOOD ORDERABLES Final Resul t [facility] Department [place] [address] from Last 3 Months Insurance [facility] CHOICE [place] [address] [address] [facility] Advance Directives For more information, please contact: [phone] * Full Code (Latest Code Status on File) Date Activated Date Inactivated Comments 08/15/2022 3:10 PM 08/18/2022 6:09 PM Care Teams Searchlight Operator Relationship Specialty Start Date End Date Lucas Carter DO PCP - General Internal Medicine 08/15/22
[2025-02-21 19:15] LABS: Hematocrit 43.5 % (37.0-47.0); Hemoglobin 15.1 g/dL (12.0-15.0); Immature Granulocyte Percent A 0.1 % (0-0.5); Lymphocytes Absolute Auto 2.14 K/mm3 (0.9-3.2); Mean Corpuscular HGB Conc 34.7 g/dl (32-36); Mean Corpuscular Hemoglobin 30.6 pg (26-34); Mean Corpuscular Volume 88.1 fl (80-100); Nucleated Red Blood Cells Absolute Auto 0.000 K/mm3 (0.0-0.012); Nucleated Red Blood Cells Perc 0.0 % (0.0-0.2); Platelet Count Result 248 k/mm3 (150-375); Red Blood Count 4.94 M/mm3 (4.2-5.4); White Blood Count 7.8 K/mm3 (4.5-10.0)
--- OUTSIDE RECORDS SUMMARY | 2025-02-21 19:16 | XMS_ITS | Clinical Summary ---
Author Organization [facility] [employer] Address [address] [place] [address] Care Team Providers Care Aviation Technical Systems Specialist Name Role Phone Damian Sadler MD Primary Care Provider [phone] Source Comments [facility],non-owned Affiliates and Associated Physician Practices is amultiple site organization consisting of ambulatory clinics and hospital sitesin [place], [place], [place] and [place]. This disclosure is being madepursuant to the Care Everywhere program and may not contain all information available regarding this patient. Last updated [email or web address] 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 Gender Identity Not on file Sexual Orientation [...] Resulting Agency Comment Lab Testing performed at: [id number] [id number] Nanyc Cotto MD LAB - CHEMISTRY ORDERABLES Final Result [facility] INSURANCE BILL [address] [place] [address] * (ABNORMAL) COMPREHENSIVE METABOLIC PANEL (02/03/2024 1:03 AM [facility] BUN 9 7 - 26 mg/dL 02/03/2024 1:45 AM [facility] Creatinine 0.64 0.56 - 0.96 mg/dL 02/03/2024 1:45 AM [facility] Sodium 139 136 - 145 mmol/L 02/03/2024 1:45 AM [facility] Potassium 3.4(L) 3.5 - 4.5 mmol/L 02/03/2024 1:45 AM [facility] Chloride 107 98 - 107 mmol/L 02/03/2024 1:45 AM [facility] CO2 21(L) 22 - 29 mmol/L 02/03/2024 1:45 AM [facility] Glucose 78 70 - 115 mg/dL 02/03/2024 1:45 AM [facility] Calcium 9.9 8.4 - 10.2 mg/dL 02/03/2024 1:45 AM [facility] Protein Total 7.7 6.0 - 8.3 g/dL 02/03/2024 1:45 AM [facility] Albumin 4.4 3.4 - 5.0 g/dL 02/03/2024 1:45 AM [facility] Bilirubin Total 0.4 0.2 - [...] Kaylee Reyes MD LAB - CHEMISTRY ORDERABLES [facility] Result [facility] [address] [place] [address], [facility] [phone] from Last 3 Months or Most Recently Relevant to Health Maintenance Insurance [phone] (Work) [address] [place] [id number] MEDICAID [place] SELF PAY NO INSURANCE Member Subscriber Plan / Payer (Ef fective for All Dates) Name:Tita Luke Member ID:Not on file Relation to Subscriber:Not on file Name:TITA LUKE Subscriber ID:Not on file (Home) Address: [address] [place] [id number] Payer ID:Not on file Group ID:Not on file Type:Self Pay Address: [facility] Care Teams Aviation Technical Systems Specialist Relationship Specialty Start Date End Date Damian Sadler MD PCP - General Internal Medicine 07/04/16
[2025-02-21 19:17] LABS: Add Urine Microscopic? NO; Appearance Urine Clear (Clear); Glucose Urine UA Negative (Negative); Leukocyte Esterase Ur Negative LEU/UL (Negative); Nitrate Urine Negative (Negative); Specific Grav Ur 1.022 (1.001-1.035)
[2025-02-21 19:30] LABS: Alanine Aminotransferase 81 U/L (6-35); Albumin Level 4.4 g/dL (3.5-5.1); Alkaline Phosphatase 79 U/L (38-126); Anion Gap 9 mmol/L (4-12); Aspartate Amino Transferase 67 U/L (14-36); Bilirubin,Total 0.4 mg/dL (0.2-1.3); Blood Urea Nitrogen 10 mg/dL (7-17); Calcium 9.9 mg/dL (8.4-10.2); Carbon Dioxide 22 mmol/L (22-30); Chloride 105 mmol/L (98-107); Estimated CRCL calculation 102 ml/min; Estimated Glomerular Filt Rate > 60; Glucose 124 mg/dL (65-110); Lipase 123 U/L (23-300); Magnesium 1.8 mg/dL (1.6-2.3); Potassium 3.8 mmol/L (3.4-5.0); Sodium 136 mmol/L (137-145); Total Protein 8.0 g/dL (6.3-8.2)
--- NOTE | 2025-02-21 19:51 | PC.NURSE ---
Pt to CT at this time.
[2025-02-21] MEDS: MORPHINE SULFATE (*CRX) 2 MG/ML INJ IV PUSH ×2 (20:08→23:10)
[2025-02-21] MEDS: ONDANSETRON INJ 4 MG/2 ML VIAL IV PUSH (20:08)
[2025-02-21] MEDS: LIDOCAINE 5% PATCH 1 PATCH TRANSDERM (21:35)
[2025-02-21 21:48] VITALS: BP 205/150
[2025-02-21 23:51] VITALS: BP 176/120; PULSE 71
[2025-02-22] VITALS (18 sets, daily range): BP systolic 128–166; BP diastolic 79–109; PULSE 66–92; RESP 11–19; TEMP 36.4–36.7; O2SAT 92–97; BMI 33.9
--- NOTE | 2025-02-22 00:21 | ADMGEN ---
This patient, Renee Luek, was admitted to Intensive Care Unit-2 at 0013. Patient/family oriented to hospital policies and general routines including ID bracelet, bed and alarms, visiting hours, pain management, procedures, bathroom and other care routines, personal items, smoking policy, room service/diet, and visiting hours. Information on how to activate the Rapid Response Team has been discussed. Patient/Family are encouraged to report perceived risks to care and to ask questions if they do not understand what they are told or what they should do.
[2025-02-22 00:59] LABS: MRSA (PCR) NOT DETECTED (NOT DETECTE)
--- NOTE | 2025-02-22 02:13 | P.HP_ITS ---
H&P: HPI History of Present Illness Date/Time: 02/22/25 02:13 Chief Complaint: Uncontrolled hypertension Narrative: This is a 44-year-old female with a history of kidney stones, hypertension, GERD, sleep paralysis, obesity, depression, allergies presented to [facility] ER on 02/21/2025 with the complaint of left-sided flank pain since 2 days prior. Patient thinks that her kidney stones but then later said it migrated down and was her ovarian cyst on the left side. She reports she had a right oophorectomy before. She sees a OB Gyne at [facility]. Reports she has been struggling to keep her blood pressure in a good range she even took extra amlodipine and has been taking her blood pressure medications as prescribed. In the ER she was given 4 mg of morphine and 4 mg of IV Zofran and lidocaine patch. UA was unremarkable. A CT abdomen and pelvis without IV contrast was performed with a preliminary interpretation not revealing anything acute. Her blood pressure was elevated to 200 systolic and she was given a total of 60 mg IV labetalol without improvement. There have been multiple admissions recently where she presents with elevated blood pressures and after being placed on her home medication regimen her blood pressure normalizes. Cardene is in drip was started and patient admitted to the ICU. Review of Systems Review of Systems: All systems reviewed & are unremarkable except as noted in HPI and below (Subjective) PMFSH Past Medical History Medical History Left ureteral stone Hypertension Gastroesophageal reflux disease Sleep paralysis, recurrent isolated Smoker Obesity Depression Multiple kidney stones Seasonal allergies Surgical History Surgical History H/O ureteroscopy 10/21/24 on the right due to proximal ureteral stone; Dr Gonzalez History of laparoscopic cholecystectomy on 04/25/23 PDC History of tubal ligation History of endometrial ablation (2009) History of hysterectomy (2015) History of open reduction and internal fixation (ORIF) procedure (2012) Left elbow. History of section 2000, 2001, 2009 Status post cystoscopy with ureteral stent placement Family History Family History Mother Diabetes mellitus Depression Alcoholism Father Hypertension Diabetes mellitus Sibling Congenital heart disease Son Asthma Grandparent Diabetes mellitus Cerebrovascular accident Social History Social History Social History: Surrogate medical decision maker: Bang Luke, spouse. Code status: Full code. Smoking packs per day: 0.5 Smoking cigarettes per day: 10.0 Years smoked: 32 Smoking pack-years: 16.00 Smoking status: Current every day smoker Tobacco type: cigarettes Second hand tobacco smoke exposure: Yes Alcohol intake: current Alcohol use details: Social alcohol use in moderation. Substance use: never Substance use type: does not use Do You Feel Safe in your Home?: Yes Lack of Transportation: No Lack of Food: Never True Current Housing: I Have Housing Concerned About Future Housing: No Difficulty Paying Gas/Electric Bills: No Difficulty Paying for Meds: No Currently Unemployed: No Education: Associate Degree Difficulty w/ Childcare or Family Care: No Living arrangements: with family Spiritual care concerns: No Meds Home Medications and Allergies Home Medications ?Medication ?Instructions ?Recorded ?Confirmed ?Type multivitamin 1 tablet PO DAILY 04/04/22 02/22/25 History ondansetron 4 mg disintegrating 4 mg PO Q8H #14 tabs 10/12/24 02/22/25 Rx tablet nebivolol 10 mg tablet (Bystolic) 10 mg PO BID 10/21/24 02/22/25 History acetaminophen 500 mg capsule 1,000 mg (2 x 500 mg) PO Q6H PRN 10/25/24 02/22/25 Rx pain #30 caps hydrochlorothiazide 25 mg tablet See Rx Instructions .Route 11/23/24 02/22/25 Rx .COMPLEX #90 tabs losartan 50 mg tablet See Rx Instructions .Route 11/23/24 02/22/25 Rx .COMPLEX #180 tabs omeprazole 20 mg capsule,delayed 20 mg PO DAILY 11/23/24 02/22/25 History release tamsulosin 0.4 mg capsule 0.4 mg PO DAILY PRN urinary 11/26/24 02/22/25 History retention amlodipine 10 mg tablet 10 mg PO BID 02/22/25 02/22/25 History Allergies Allergy/AdvReac Type Severity Reaction Status Date / Time ketorolac (From Toradol) Allergy Headache,Rash, Verified 02/21/25 18:51 Swollen tongue tramadol AdvReac Mild VOMITING/HE Verified 02/21/25 18:51 ADACHE hydralazine AdvReac Headache Verified 02/21/25 18:51 Vital Signs Vital Signs - 24 hr 02/21/25 18:40 02/21/25 21:48 02/21/25 23:51 Temperature 98.1 F Pulse Rate 99 71 Respiratory Rate 19 Blood Pressure 221/152 H 205/150 H 176/120 H Pulse Oximetry 98 Oxygen Delivery 02/22/25 00:19 02/22/25 00:30 02/22/25 00:30 Temperature 98.1 F Pulse Rate 76 77 Respiratory Rate 16 Blood Pressure 162/92 H 148/94 H Pulse Oximetry 95 94 Oxygen Delivery Room Air 02/22/25 00:32 02/22/25 00:45 02/22/25 01:00 Temperature Pulse Rate 77 75 83 Respiratory Rate 11 L 16 Blood Pressure 148/94 H 145/88 H 155/91 H Pulse Oximetry 95 94 Oxygen Delivery 02/22/25 01:15 02/22/25 01:30 Temperature Pulse Rate 84 92 Respiratory Rate 17 19 Blood Pressure 154/100 H 166/108 H Pulse Oximetry 95 96 Oxygen Delivery Exam Const: General: comfortable and no acute distress HENMT: Mouth: Yes moist mucous membranes Eyes: Pupils: Equal, round and reactive pupils present Neck: Neck: supple Resp: Effort & Inspection: normal respiratory effort Auscultation: clear to auscultation bilaterally Cardio: Rate: regular rate Rhythm: regular rhythm Heart sounds: no gallops, no murmurs and no rubs GI: Inspection: non-distended GI Palp: Yes Soft to palpation Extrem: General: no edema H&P: Results Labs Labs: Short CBC 02/21/25 Range/Units 19:07 WBC 7.8 (4.5-10.0) K/mm3 Hgb 15.1 H (12.0-15.0) g/dL Hct 43.5 (37.0-47.0) % Plt Count 248 (150-375) k/mm3 BMP 02/21/25 19:07 Sodium 136 L Potassium 3.8 Chloride 105 Carbon Dioxide 22 BUN 10 Creatinine 0.62 L Glucose 124 H Calcium 9.9 Liver Function 02/21/25 Range/Units 19:07 Total Bilirubin 0.4 (0.2-1.3) mg/dL AST 67 H (14-36) U/L ALT 81 H (6-35) U/L Alkaline Phosphatase 79 (38-126) U/L Albumin 4.4 (3.5-5.1) g/dL Urine 02/21/25 Range/Units 19:07 Urine Color Yellow (Yellow) Urine Appearance Clear (Clear) Urine pH 5.5 (5.0-9.0) Ur Specific [place] 1.022 (1.001-1.035) Urine Protein Negative (Negative) mg/dL Urine Glucose (UA) Negative (Negative) mg/dL Assessment and Plan Assessment and plan (1) HTN (hypertension): Qualifiers: Hypertension type: primary hypertension Qualified Code(s): I10 - Essential (primary) hypertension Code(s): I10 - Essential (primary) hypertension Status: Acute (2) Resistant hypertension: Code(s): I1A.0 - Resistant hypertension Status: Acute Plan This is a 44-year-old female with a history of kidney stones, hypertension, GERD, sleep paralysis, obesity, depression, allergies presented to [facility] ER on 02/21/2025 with the complaint of left-sided flank pain since 2 days prior. Patient thinks that her kidney stones but then later said it migrated down and was her ovarian cyst on the left side. She reports she had a right oophorectomy before. She sees a OB Gyne at [facility]. Reports she has been struggling to keep her blood pressure in a good range she even took extra amlodipine and has been taking her blood pressure medications as prescribed. In the ER she was given 4 mg of morphine and 4 mg of IV Zofran and lidocaine patch. UA was unremarkable. A CT abdomen and pelvis without IV contrast was performed with a preliminary interpretation not revealing anything acute. Hepatomegaly with fatty infiltration liver, right kidney stone with no hydronephrotic changes no evidence of appendicitis diverticulitis or intestinal obstruction. Her blood pressure was elevated to 200 systolic and she was given a total of 60 mg IV labetalol without improvement. There have been multiple admissions recently where she presents with elevated blood pressures and after being placed on her home medication regimen her blood pressure normalizes. Cardene is in drip was started and patient admitted to the ICU. ----- Shortly after admission to the ICU her blood pressures dropped to 160/100. Restart her [employer]STER COAST[employer] YACHT medications and will further evaluate with repeat blood pressures. 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 She has received Flexeril as well as pregabalin in larger quantities. She reports she received those from her spine doctor. Abdominal exam completely benign upon deep pressure with stethoscope, upon presenting the patient with an official abdominal exam she has a heightened response to palpation with grimacing. Ot herwise, she is resting completely comfortable at all times. In an attempt to stave off plausible unfounded opioid dependence, will not prescribe any narcotics this stay. She is prescribed acetaminophen and lidocaine patch. A referral to Psychiatry/Psychology may prove beneficial. Anticipate discharge if her blood pressures remained stable after re-initiation of her home regimen. Full code. Saline lock IV. Heart healthy diet. Restart [employer]ACHT antihypertensives and omeprazole. SCDs. Hospitalist MIPS Advance Care Plan I have confirmed that the patient's Advanced Care Plan is present, code status is documented, or surrogate decision maker is listed in patient medical record.: Yes Medication Reconciliation I have utilized all available resources to obtain, update and review the patients current medications (includes all prescriptions, OTC, herbals, cannabis, and nutritional supplements).: Yes
[2025-02-22] MEDS: ACETAMINOPHEN 325 MG TABLET 650 MG PO ×2 (02:56→08:09)
[2025-02-22] MEDS: ONDANSETRON HCL ODT 4 MG TABLET PO (02:57)
[2025-02-22] MEDS: NEBIVOLOL HCL 5 MG TABLET 10 MG PO ×2 (02:57→08:08)
[2025-02-22] MEDS: PANTOPRAZOLE 40 MG TABLET PO (08:02)
[2025-02-22] MEDS: LOSARTAN POTASSIUM 50 MG TABLET BY MOUTH (08:02)
[2025-02-22] MEDS: MULTIVITAMINS THERAPEUTIC TAB (*BKC) 1 TABLET PO (08:02)
[2025-02-22] MEDS: LIDOCAINE 5% PATCH 1 PATCH TRANSDERM (08:03)
--- NOTE | 2025-02-22 08:33 | WPDCNINT ---
Assessment and Plan Assessment and plan (1) Hypertensive urgency: Code(s): I16.0 - Hypertensive urgency Status: Acute Assessment and Plan: Patient presented was right-sided flank pain, unable to control her blood pressures at home. In the ER patient had systolic blood pressures > 200 mmHg, received labetalol 60 mg IV in all for blood pressure control. Despite which the SBP remained greater than 200. Patient was started on nicardipine infusion and transferred to the ICU for further management -upon evaluation by hospitalist the ICU patient's blood pressures were much improved and was started on p.o. medications and nicardipine infusion was discontinued shortly after arrival to the ICU. -this morning patient's blood pressures were stable -patient on amlodipine, hydrochlorothiazide, losartan, Bystolic -p.r.n. Labetalol (2) Flank pain: Code(s): R10.9 - Unspecified abdominal pain Status: Acute Assessment and Plan: Patient also complained of right flank pain, CT scan of the abdomen and pelvis showed right kidney kidney stone without hydronephrosis -consult Urology as she has a history of left-sided renal stones which were treated by Urology here at [facility] Plan DVT prophylaxis: SCDs Stress ulcer prophylaxis: For chronic Nutrition: Heart healthy diet Code Status: Full code Critical Care Time Spent: 48 minutes Due to a high probability of clinically significant, life threatening deterioration, the patient required my highest level of preparedness to intervene emergently and I personally spent this critical care time directly and personally managing the patient. This critical care time included obtaining a history; examining the patient; pulse oximetry; ordering and review of studies; arranging urgent treatment with development of a management plan; evaluation of patient's response to treatment; frequent reassessment; and discussions with other providers. It was exclusive of separately billable procedures and treating other patients and teaching time. Please see Assessment and Plan section and the rest of the note for further information on patient assessment and treatment This dictation may have been done utilizing a voice recognition system. Attempts have been made to correct errors. However, there may be uncorrected grammatical, spelling, and recognitions errors present. [employer] Consult Note Consult date: 02/22/25 Reason for consult: Hypertensive urgency HPI: Renee Luke is a 44 year old female with past medical history of left ureteral stone, essential hypertension, GERD, sleep paralysis, tobacco use, obesity, depression, allergies presented the ED on 02/21/2025 with complains of left-sided flank pain has been ongoing for 2 days. She also complained that she was struggling to keep a blood pressures in the normal range. In the ER shoes given morphine, Zofran lidocaine patch. UA was unremarkable, CT abdomen and pelvis with no event dense of appendicitis, diverticulitis, intestinal obstruction. Right kidney stone with no hydronephrotic changes, fat infiltration of the liver, hepatomegaly. In the ED patient was given labetalol 60 mg IV without improvement in her blood pressures, systolic blood pressures remain greater than 200, patient was started on nicardipine infusion. Patient has had multiple admissions recently for kidneys stone pain and hypertension. Patient was transferred to the ICU for further manage Patient seen and examined the ICU, is awake, alert, states she feels much better. Denies any chest pain, shortness of breath, abdominal pain, nausea, vomiting at this time blood pressures were stable overnight after taking oral medication. Nicardipine infusion was discontinued soon after she arrived in the ICU as the systolic blood pressures were in the 120s and 130s. Patient denies any headaches, vision issues. Urine output has been adequate, afebrile Review of Systems Review of Systems: All systems reviewed & are unremarkable except as noted in HPI and below PMFSH Past Medical History Medical History Left ureteral stone Hypertension Gastroesophageal reflux disease Sleep paralysis, recurrent isolated Smoker Obesity Depression Multiple kidney stones Seasonal allergies Surgical History Surgical History H/O ureteroscopy 10/21/24 on the right due to proximal ureteral stone; Dr Gonzalez History of laparoscopic cholecystectomy on 04/25/23 PDC History of tubal ligation History of endometrial ablation (2009) History of hysterectomy (2015) History of open reduction and internal fixation (ORIF) procedure (2012) Left elbow. History of section 2000, 2001, 2009 Status post cystoscopy with ureteral stent placement Family History Family History Mother Diabetes mellitus Depression Alcoholism Father Hypertension Diabetes mellitus Sibling Congenital heart disease Son Asthma Grandparent Diabetes mellitus Cerebrovascular accident Social History Social History Social History: Surrogate medical decision maker: Bang Luke, spouse. Code status: Full code. Smoking packs per day: 0.5 Smoking cigarettes per day: 10.0 Years smoked: 32 Smoking pack-years: 16.00 Smoking status: Current every day smoker Tobacco type: cigarettes Second hand tobacco smoke exposure: Yes Alcohol intake: current Alcohol use details: Social alcohol use in moderation. Substance use: never Substance use type: does not use Do You Feel Safe in your Home?: Yes Lack of Transportation: No Lack of Food: Never True Current Housing: I Have Housing Concerned About Future Housing: No Difficulty Paying Gas/Electric Bills: No Difficulty Paying for Meds: No Currently Unemployed: No Education: Associate Degree Difficulty w/ Childcare or Family Care: No Living arrangements: with family Spiritual care concerns: No Meds Home Medications and Allergies Home Medications ?Medication ?Instructions ?Recorded ?Confirmed ?Type multivitamin 1 tablet PO DAILY 04/04/22 02/22/25 History ondansetron 4 mg disintegrating 4 mg PO Q8H #14 tabs 10/12/24 02/22/25 Rx tablet nebivolol 10 mg tablet (Bystolic) 10 mg PO BID 10/21/24 02/22/25 History acetaminophen 500 mg capsule 1,000 mg (2 x 500 mg) PO Q6H PRN 10/25/24 02/22/25 Rx pain #30 caps hydrochlorothiazide 25 mg tablet See Rx Instructions .Route 11/23/24 02/22/25 Rx .COMPLEX #90 tabs losartan 50 mg tablet See Rx Instructions .Route 11/23/24 02/22/25 Rx .COMPLEX #180 tabs omeprazole 20 mg capsule,delayed 20 mg PO DAILY 11/23/24 02/22/25 History release tamsulosin 0.4 mg capsule 0.4 mg PO DAILY PRN urinary 11/26/24 02/22/25 History retention amlodipine 10 mg tablet 10 mg PO BID 02/22/25 02/22/25 History Allergies Allergy/AdvReac Type Severity Reaction Status Date / Time ketorolac (From Toradol) Allergy Headache,Rash, Verified 02/21/25 18:51 Swollen tongue tramadol AdvReac Mild VOMITING/HE Verified 02/21/25 18:51 ADACHE hydralazine AdvReac Headache Verified 02/21/25 18:51 Vital Signs Vital Signs - 24 hr 02/21/25 18:40 02/21/25 21:48 02/21/25 23:51 Temperature 98.1 F Pulse Rate 99 71 Respiratory Rate 19 Blood Pressure 221/152 H 205/150 H 176/120 H Pulse Oximetry 98 Oxygen Delivery 02/22/25 00:19 02/22/25 00:19 02/22/25 00:30 Temperature Pulse Rate 76 77 Respiratory Rate Blood Pressure 162/92 H Pulse Oximetry 95 Oxygen Delivery Room Air 02/22/25 00:30 02/22/25 00:32 02/22/25 00:45 Temperature 98.1 F Pulse Rate 77 77 75 Respiratory Rate 16 11 L Blood Pressure 148/94 H 148/94 H 145/88 H Pulse Oximetry 94 95 Oxygen Delivery 02/22/25 01:00 02/22/25 01:15 02/22/25 01:30 Temperature Pulse Rate 83 84 92 Respiratory Rate 16 17 19 Blood Pressure 155/91 H 154/100 H 166/108 H Pulse Oximetry 94 95 96 Oxygen Delivery 02/22/25 01:45 02/22/25 02:00 02/22/25 02:00 Temperature Pulse Rate 79 81 81 Respiratory Rate 17 Blood Pressure 163/108 H 162/102 H Pulse Oximetry 96 Oxygen Delivery 02/22/25 02:30 02/22/25 02:57 02/22/25 03:00 Temperature Pulse Rate 83 77 78 Respiratory Rate 16 16 Blood Pressure 149/107 H 165/109 H Pulse Oximetry 97 95 Oxygen Delivery 02/22/25 04:00 02/22/25 04:00 02/22/25 04:00 Temperature 98.0 F Pulse Rate 75 73 Respiratory Rate 17 Blood Pressure 137/86 Pulse Oximetry 94 94 Oxygen Delivery Room Air 02/22/25 06:00 02/22/25 07:26 02/22/25 08:08 Temperature 97.5 F L Pulse Rate 69 67 74 Respiratory Rate 19 18 Blood Pressure 146/85 H 128/92 H Pulse Oximetry 92 93 Oxygen Delivery Exam Narrative: General: Pleasant female in no acute distress HEENT:? Pupils equal and reactive, sclera is clear, moist oral mucosa Neck:? Supple Respiratory:? Clear to auscultation bilaterally, no wheezing, adequate air entry Cardiac:? S1-S2 is normal: Regular rate and rhythm Abdomen:? Soft, nontender, nondistended, right flank tender Extremities:? No edema, palpable pedal pulses Neuro:? Patient is awake, alert, oriented, nonfocal Skin:? No lesions no Psych:? Normal mentation and affect Results Labs 02/21/25 19:07 02/21/25 19:07 Labs: Short CBC 02/21/25 Range/Units 19:07 WBC 7.8 (4.5-10.0) K/mm3 Hgb 15.1 H (12.0-15.0) g/dL Hct 43.5 (37.0-47.0) % Plt Count 248 (150-375) k/mm3 BMP 02/21/25 19:07 Sodium 136 L Potassium 3.8 Chloride 105 Carbon Dioxide 22 BUN 10 Creatinine 0.62 L Glucose 124 H Calcium 9.9 Liver Function 02/21/25 Range/Units 19:07 Total Bilirubin 0.4 (0.2-1.3) mg/dL AST 67 H (14-36) U/L ALT 81 H (6-35) U/L Alkaline Phosphatase 79 (38-126) U/L Albumin 4.4 (3.5-5.1) g/dL Urine 02/21/25 Range/Units 19:07 Urine Color Yellow (Yellow) Urine Appearance Clear (Clear) Urine pH 5.5 (5.0-9.0) Ur Specific [place] 1.022 (1.001-1.035) Urine Protein Negative (Negative) mg/dL Urine Glucose (UA) Negative (Negative) mg/dL Quality VTE Prophylaxis VTE prophylaxis: mechanical ordered Hospitalist MIPS Advance Care Plan I have confirmed that the patient's Advanced Care Plan is present, code status is documented, or surrogate decision maker is listed in patient medical record.: Yes Medication Reconciliation I have utilized all available resources to obtain, update and review the patients current medications (includes all prescriptions, OTC, herbals, cannabis, and nutritional supplements).: Yes
== END 2025-02-22 14:03 | disposition left against medical advice (07) | DRG 199 ==
LOC: ANHED 22:53 → ANHICU 23:21
PROVIDERS: Emergency Medicine; Admitting Provider General Practice; Emergency Provider Emergency Medicine; PCP Internal Medicine; Visit Provider General Practice
DX: I16.0 Hypertensive urgency (principal); N20.0 Calculus of kidney; K21.9 Gastro-esophageal reflux disease without esophagitis; E66.9 Obesity, unspecified; G47.53 Recurrent isolated sleep paralysis; F17.210 Nicotine dependence, cigarettes, uncomplicated; Z68.34 Body mass index [BMI] 34.0-34.9, adult; Z87.442 Personal history of urinary calculi; Z90.49 Acquired absence of other specified parts of digestive tract; Z90.710 Acquired absence of both cervix and uterus
CPT/HCPCS: 36415; 74176; 80053; 81003; 83605; 83690; 83735; 85025; 87641; 96374; 96375; 96376; 99285; A9270; J2270; J2404; J2405

== ENCOUNTER 2025-04-07 00:51 | Emergency (ER) | payer OTHER, SELFPAY ==
[2025-04-07 01:01] VITALS: BP 191/137; PULSE 104; RESP 16; TEMP 36.5; O2SAT 97
--- NOTE | 2025-04-07 01:05 | ECG_ITS ---
Test Date: 2025-04-07 02:03:06 Measurements Intervals [place] Rate: 77 P: 10 [place]: 189 QRS: 25 QRSD: 88 T: 53 QT: 412 QTc: 468 Interpretive Statements SINUS RHYTHM NONSPECIFIC ST & T-WAVE ABNORMALITY- DIFFUSE LEADS BORDERLINE ECG Compared to ECG 12/27/2024 22:24:41 No significant changes Electronically Signed On 04-07-2025 06:42:50 CDT by Leonel Méndez D.O.
--- OUTSIDE RECORDS SUMMARY | 2025-04-07 01:20 | XMS_ITS | Clinical Summary ---
Author Organization [facility] [employer] Address [address] [place] [address] Care Team Providers Care Laboratory [facility] Name Role Phone Damian Sadler MD Primary Care Provider [phone] Source Comments [facility] [employer],non-owned Affiliates and Associated Physician Practices is amultiple site organization consisting of ambulatory clinics and hospital sitesin [place], [place], [place] and [place]. This disclosure is being madepursuant to the Care Everywhere program and may not contain all information available regarding this patient. Last updated 18.[employer] Allergies Active Allergy Reactions Criticality Noted Date [...] on file Legal Sex Female 11:41 AM [employer] Gender Identity Not on file Sexual Orientation [...] - PCV) 1998 COVID-19 VACCINE (1 - 2023-25 season) 2024 DEPRESSION SCREENING 08/12/2024 INFLUENZA VACCINE [...] Resulting Agency Comment Lab Testing performed at: [facility] [id number] Nancy Cotto MD LAB - CHEMISTRY ORDERABLES Final Result [facility] INSURANCE BILL [address] [place] [address] * (ABNORMAL) COMPREHENSIVE METABOLIC PANEL (02/03/2024 1:03 AM [facility]) BUN 9 7 - 26 mg/dL 02/03/2024 1:45 AM [facility] Creatinine 0.64 0.56 - 0.96 mg/dL 02/03/2024 1:45 AM [facility] Sodium 139 136 - 145 mmol/L 02/03/2024 1:45 AM [facility] Potassium 3.4(L) 3.5 - 4.5 mmol/L 02/03/2024 1:45 AM [facility] Chloride 107 98 - 107 mmol/L 02/03/2024 1:45 AM [facility] CO2 21(L) 22 - 29 mmol/L 02/03/2024 1:45 AM [facility] Glucose 78 70 - 115 mg/dL 02/03/2024 1:45 AM [facility] Calcium 9.9 8.4 - 10.2 mg/dL 02/03/2024 1:45 AM [facility] Protein Total 7.7 6.0 - 8.3 g/dL 02/03/2024 1:45 AM [facility] Albumin 4.4 3.4 - 5.0 g/dL 02/03/2024 1:45 AM [facility] Bilirubin Total 0.4 0.2 - 1.2 mg/dL 02/03/2024 1:45 AM [facility] Alkaline Phosphatase 81 40 - 150 U/L 02/03/2024 1:45 AM [facility] ALT 58(H) 5 - 55 U/L 02/03/2024 1:45 AM [facility] AST 33 5 - 34 U/L 02/03/2024 1:45 AM [facility] Anion Gap 11 6 - 16 02/03/2024 1:45 AM [facility] BUN/Creatinine Ratio 14 7 - 23 02/03/2024 1:45 AM [facility] Osmolality Calculated 286 275 - 295 mOsm/kg 02/03/2024 1:45 AM CDT [facility] Albumin/Globulin Ratio 1.3 1.1 - 2.3 02/03/2024 1:45 AM CDT [facility] eGFR by CKD-EPI >90 >=90 mL/min/1.7 3 m2 02/03/2024 1:45 AM CDT [facility] Blood BLOOD SPECIMEN / Unknown Venipuncture / Unknown 02/03/2024 1:03 AM CDT 02/03/2024 1:17 AM CDT us Kaylee Reyes MD LAB - CHEMISTRY ORDERABLES [facility] Result [facility] [address] [place] [address], [place] [phone] from Last 3 Months or Most Recently Relevant to Health Maintenance Insurance [phone] (Work) [address] [place] [phone] MEDICAID [place] SELF PAY NO INSURANCE Member Subscriber Plan / Payer (Ef fective for All Dates) Name:Tita Luke Member ID:Not on file Relation to Subscriber:Not on file Name:TITA LUKE Subscriber ID:Not on file (Home) Address: [address] [place] [id number] Payer ID:Not on file Group ID:Not on file Type:Self Pay Address: [address] [address] * Guarantor: TITA LUKE Account Type Relation to Patient Date of Phone Billing Address Personal/Family Spouse [address] [place] [phone] Care Teams Laboratory [facility] Relationship Specialty Start Date End Date Damian Sadler MD PCP - General Internal Medicine 07/04/16
--- OUTSIDE RECORDS SUMMARY | 2025-04-07 01:20 | XMS_ITS | Clinical Summary ---
Author Organization [facility] Address [address] [place] [address] Phone Care Team Providers Care Steam[employer] Att[employer] Name Role Phone Damian Diamond MD Primary Care Provider [phone] Allergies Active Allergy Reactions Criticality Noted Date [...] needed for Other. 30 Tablet 02/10/2025 Active Encounters Date Type Department Care Team Description 04/04/2025 Travel 02/18/2025 8:51 AM CDT - 02/18/2025 11:59 PM CDT Hospital Encounter [facility] Ultrasound [address] [place] [address] Damian Diamond MD Discharge Disposition: Discharged to home or Selfcare 02/18/2025 7:44 AM CDT - 02/18/2025 8:50 AM CDT [facility] [address] [place] [address] Damian Diamond MD Discharge Disposition: Discharged to home or Selfcare 02/17/2025 Travel 02/10/2025 3:30 PM CDT Office Visit [facility] [address] [place] [address] Damian Diamond MD Primary hypertension (Primary Dx); Chronic neck pain; Low back pain, unspecified back pain laterality, unspecified chronicity, unspecified whether sciatica present Discharge Disposition: Discharged to home or Selfcare 02/10/2025 Travel 02/05/2025 10:51 PM CDT - 02/06/2025 1:23 AM CDT [facility] [address] [facility] [place] [address] Mike Melgar MD Chronic abdominal pain Discharge Disposition: Discharged to home or Selfcare 02/05/2025 Travel 01/19/2025 Telephone [facility] [address] [place] [address] Damian Diamond MD 01/19/2025 Travel 01/13/2025 12:30 PM CDT Office Visit [facility] [address] [place] [address] Damian Diamond MD Physical exam, annual (Adult) (Primary Dx); Encounter for screening mammogram for breast cancer Discharge Disposition: Discharged to home or Selfcare 01/11/2025 Travel from Last 3 Months Immunizations Immunization Administration [...] drink = 0.6 oz pur e alcohol) [facility] Utilities Answer Date Recorded In the [...] often do you attend chur ch or baptist services? Never 01/11/2025 Do you belong to any clubs o r organizations such as congregational groups, unions, fraternal or athletic groups, or [...] medical care, and heating? Somewhat hard 01/11/2025 [facility] of Occupat ional Health - Occupational Stress [...] time in the past 12 m [facility], were you homeless or living in [...] 02/10/2025 3:10 PM CDT Plan of Treatment Upcoming Encounters Date Type Department Care Team (Late st Contact Info) Description 04/13/2025 7:30 AM CDT Office Visit [facility] [address] [place] [address] Bessie Manzanares APRN, SUPERVISOR [employer] [address] [address] Health Maintenance Due Date Last Done Comments TdaP Immunization 1980 Hepatitis B Immunization (1 [...] Discussion re Starting/Frequency of Mammograms Completed 02/18/2025 Human Papillomavirus (HPV) Immunization Aged Out No longer eligible b ased on patient's age to complete this topic Meningococcal Immunization (ACWY) Aged Out No longer eligible b ased on patient's age to complete this topic Rotavirus Immunization Aged Out No lo nger eligible based on patient's age to complete this topic Procedures Procedure Name Priority Date/Time Associated Diagnosis Comments RUDOLPH US BREAST LIMITED RT Routine 02/18/2025 9:35 AM CDT Abnormal mammogram RUDOLPH DIAG BILATERAL DIGITAL W CAD W [...] WITH DIFF STAT 02/05/2025 10:58 PM CDT from Last 3 Months Results [...] signed by: Cris Quintana M.D. ab/:02/18/2025 09:33:34 Family Program Specialist(s): Jana Mei, (R)(M), [facility]; MARCELO Rowley, [facility] letter sent: Normal Exam Abnormal History Reading location: [place] [facility]: Category 1: Negative Procedure [...] signed by: Cris Quintana M.D. ab/:02/18/2025 09:33:34 Family Program Specialist(s): Jana Mei, RT(R)(M), [facility]; Jessica Vazquez RDMS OBGYAsif, [facility] letter sent: Normal Exam Abnormal History Reading location: [place] [facility]: Category 1: Negative us [...] signed by: Cris Quintana M.D. ab/:02/18/2025 09:33:34 Family Program Specialist(s): Jana Mei, RT(R)(M), [facility]; Jessica Vazquez RDMS OBGYN, [facility] letter sent: Normal Exam Abnormal History Reading location: [place] [facility]: Category 1: Negative Procedure [...] signed by: Cris Quintana M.D. ab/:02/18/2025 09:33:34 Family Program Specialist(s): Jana Mei, RT(R)(M), [facility]; Jessica Vazquez RDMS OBGYN, [facility] letter sent: Normal Exam Abnormal History Reading location: [place] [facility]: Category 1: Negative us [...] R Carrillo M.D. KT: SHUN Report ID: [id number] Reading Location: [id number] Procedure Note Jose R Carrillo MD - [...] signed by Jose R Carrillo M.D. KT: KT Report ID: [id number] Reading Location: [id number] IMPRESSION: 1. No obstructing renal or ureteral calculus. 2. Punctate nonobstructing bilateral renal stones. 3. Fatty infiltration of the liver. 4. Surgical absence of the gallbladder. 5. Diverticulosis. No evidence of diverticulitis. Mike Melgar MD IM CT ORDERABLES Final R esult * Urinalysis w/ Reflex (02/05/2025 11:10 PM CDT) SPECIFIC GRAVITY 1.010 1.003 - 1.030 02/06/2025 12:01 AM CDT [facility] URINE PH 6.0 5.0 - 9.0 02/06/2025 12:01 AM CDT [facility] WBC ESTERASE Negative Negative 02/06/2025 12:01 AM CDT [facility] NITRITE Negative Negative 02/06/2025 12:01 AM CDT [facility] PROTEIN, RANDOM URINE Negative Negative 02/06/2025 12:01 AM CDT [facility] URINE GLUCOSE, QUAL Negative Negative 02/06/2025 12:01 AM CDT [facility] URINE KETONES Negative Negative 02/06/2025 12:01 AM CDT [facility] UROBILINOGEN Normal Normal mg/dL 02/06/2025 12:01 AM CDT [facility] URINE BLOOD Negative Negative thais/ul 02/06/2025 12:01 AM CDT [facility] URINALYSIS COLOR Yellow 02/07/20 12:01 AM CDT [facility] URINALYSIS CLARITY Clear 02/06/2025 12:01 AM T [facility] Urine URINE SPECIMEN OBTAINED BY CLEAN CATCH PROCEDURE / Unknown Non-Phlebotomy Collection / Unknown 02/05/2025 11:10 PM CDT 02/05/2025 11:52 PM CDT us Mike Melgar MD URINE ORDERABLES Final Re sult [facility] [address] [place] [address] * (ABNORMAL) CBC with Auto Differential (02/05/2025 10:58 PM CDT) WBC 9.30 4.00 - 12.00 10(3)/mcL 02/05/2025 11:20 PM CDT [facility] RBC 4.96 3.80 - 5.30 10(6)/[facility] 02/05/2025 11:20 PM CDT [facility] HEMOGLOBIN (HGB) 15.1 12.0 - 15.8 g/dL 02/05/2025 11:20 PM CDT [facility] HEMATOCRIT (HCT) 43.4 36.0 - 47.0 % 02/05/2025 11:20 PM CDT [facility] MCV 87.5 82.0 - 96.0 fL 02/05/2025 11:20 PM CDT [facility] MCH 30.4 26.0 - 34.0 pg 02/05/2025 11:20 PM CDT [facility] MCHC 34.8 31.0 - 36.0 g/dL 02/05/2025 11:20 PM CDT [facility] PLATELET COUNT 263 140 - 440 10(3)/mcL 02/05/2025 11:20 PM CDT [facility] RDW 12.3 11.8 - 15.5 % 02/05/2025 11:20 PM CDT [facility] MPV 9.6(L) 9.7 - 12.4 fL 02/05/2025 11:20 PM CDT [facility] NEUTROPHILS 59.3 47.0 - 73.0 % 02/05/2025 11:20 PM CDT [facility] LYMPHOCYTES 30.9 18.0 - 42.0 % 02/05/2025 11:20 PM CDT [facility] MONOCYTES 7.4 4.0 - 12.0 % 02/05/2025 11:20 PM CDT [facility] EOSINOPHILS 1.6 0.0 - 5.0 % 02/05/2025 11:20 PM CDT [facility] BASOPHILS 0.5 0.0 - 1.0 % 02/05/2025 11:20 PM CDT [facility] IMMATURE GRANULOCYTE 0.3 0.0 - 0.4 % 02/05/2025 11:20 PM CDT [facility] Comment:Immature Granulocyte s includes Metamyelocytes, Myelocytes, and Promyelocytes. ABSOLUTE NEUTROPHILS 5.51 1.60 - 7.70 10(3)/mcL 02/05/2025 11:20 PM CDT [facility] ABSOLUTE LYMPHOCYTES 2.87 1.30 - 3.20 10(3)/[facility] 02/05/2025 11:20 PM CDT [facility] ABSOLUTE MONOCYTES 0.69 0.20 - 1.00 10(3)/[facility] 02/05/2025 11:20 PM CDT [facility] ABSOLUTE EOSINOPHIL 0.15 0.00 - 0.40 10(3)/[facility] 02/05/2025 11:20 PM CDT [facility] ABSOLUTE BASOPHILS 0.05 0.00 - 0.10 10(3)/[facility] 02/05/2025 11:20 PM CDT [facility] ABSOLUTE IMMATURE GRANULOCYTE 0.03 0.00 - 0.03 10 (3) mcL. 02/05/2025 11:20 PM CDT [facility] NRBC PER 100 WBC 0 02/06/20 11:20 PM CDT [facility] Blood Venipuncture / Unknown 02/05/2025 10:58 PM CDT 02/05/2025 11:18 PM CDT us Mike Melgar MD HEMATOLOGY ORDERABLES Fin al Result Performing Organization Address City/[facility]/ZIP Co de Phone Number [facility] [address] [place] [address] * Magnesium Level (02/05/2025 10:58 PM CDT) Pathologist [facility] MAGNESIUM 1.8 1.6 - 2.6 mg/dL 02/05/2025 11:43 PM CDT [facility] Blood Venipuncture / Unknown 02/05/2025 10:58 PM CDT 02/05/2025 11:18 PM CDT Mike Melgar MD CHEMISTRY ORDERABLES Sandra l Result Performing Organization Address City/[facility]/ZIP Co de Phone Number [facility] [address] [place] [address] * Lipase (02/05/2025 10:58 PM CDT) Pathologist [facility] LIPASE 22 8 - 78 U/L 02/05/2025 11:43 PM CDT [facility] Blood Venipuncture / Unknown 02/05/2025 10:58 PM CDT 02/05/2025 11:18 PM CDT Mike Melgar MD CHEMISTRY ORDERABLES Sandra l Result Performing Organization Address [facility]/ZIP Co de Phone Number [facility] [address] [place] [address] * (ABNORMAL) CMP (02/05/2025 10:58 PM CDT) Pathologist [facility] SODIUM 137 136 - 145 mmol/L 02/05/2025 11:43 PM CDT [facility] POTASSIUM 3.0(L) 3.5 - 5.1 mmol/L 02/05/2025 11:43 PM CDT [facility] CHLORIDE 105 98 - 107 mmol/L 02/05/2025 11:43 PM CDT [facility] CO2, VENOUS 22 22 - 30 mmol/L 02/05/2025 11:43 PM T [facility] ANION GAP 13.0 <18.0 mmol/L 02/05/2025 11:43 PM CDT [facility] GLUCOSE 77 70 - 99 mg/dL 02/05/2025 11:43 PM T [facility] BUN 7 5 - 18 mg/dL 02/05/2025 11:43 PM CDT [facility] CREATININE, BLOOD 0.71 0.60 - 1.00 mg/dL 02/05/2025 11:43 PM T [facility] BUN/CREATININE RATIO 10(L) 12 - 20 ratio 02/05/2025 11:43 PM T [facility] TOTAL PROTEIN 7.9 6.0 - 8.0 g/dL 02/05/2025 11:43 PM T [facility] ALBUMIN 4.7 3.5 - 5.0 g/dL 02/05/2025 11:43 PM T [facility] A/G RATIO 1.5 1.0 - 2.2 02/05/2025 11:43 PM T [facility] CALCIUM 9.2 8.7 - 10.5 mg/dL 02/05/2025 11:43 PM T [facility] T BILI 0.6 0.2 - 1.2 mg/dL 02/05/2025 11:43 PM T [facility] SGOT (AST) 43(H) <43 U/L 02/05/2025 11:43 PM T [facility] SGPT (ALT) 61(H) <56 U/L 02/05/2025 11:43 PM T [facility] ALKALINE PHOSPHATASE 89 40 - 150 U/L 02/05/2025 11:43 PM T [facility] GFR, ESTIMATED >60 >=60 02/05/2025 11:43 PM T [facility] Comment: Creatinine Clearance is the preferred criteria for selecting drug dose adjustments in renally impaired patients. The GFR is provided as additional pertinent clinical information. GFR is reported in mL/min/1.73 sq m. Calculation based on the Chronic Kidney Disease Epidemiology Collaboration (CKD- EPI) equation refit without adjustment for race. GFR, EST. >60 >=60 025 11:43 PM CDT [facility] GFR, EST. NONAFRICAN >60 >=60 02/05/2025 11:43 PM CDT [facility] Blood Venipuncture / Unknown 02/05/2025 10:58 PM CDT 02/05/2025 11:18 PM CDT us Mike Melgar MD CHEMISTRY ORDERABLES Sandra l Result [facility] [address] [place] [address] from Last 3 Months Insurance MEDICAID [place] Care Teams [employer] Relationship Specialty Start Date End Date Damian Diamond MD [address] [address] PCP - General Family Medicine 01/13/25
[2025-04-07 01:25] LABS: Hematocrit 46.0 % (37.0-47.0); Hemoglobin 15.9 g/dL (12.0-15.0); Immature Granulocyte Percent A 0.3 % (0-0.5); Lymphocytes Absolute Auto 2.69 K/mm3 (0.9-3.2); Mean Corpuscular HGB Conc 34.6 g/dl (32-36); Mean Corpuscular Hemoglobin 30.1 pg (26-34); Mean Corpuscular Volume 87.0 fl (80-100); Nucleated Red Blood Cells Absolute Auto 0.000 K/mm3 (0.0-0.012); Nucleated Red Blood Cells Perc 0.0 % (0.0-0.2); Platelet Count Result 271 k/mm3 (150-375); Red Blood Count 5.29 M/mm3 (4.2-5.4); White Blood Count 8.7 K/mm3 (4.5-10.0)
[2025-04-07 01:34] VITALS: BP 183/122; PULSE 101; RESP 17; TEMP 36.8; O2SAT 97
[2025-04-07 01:35] LABS: Alanine Aminotransferase 65 U/L (6-35); Albumin Level 4.7 g/dL (3.5-5.1); Alkaline Phosphatase 93 U/L (38-126); Anion Gap 11 mmol/L (4-12); Aspartate Amino Transferase 58 U/L (14-36); Bilirubin,Total 0.8 mg/dL (0.2-1.3); Blood Urea Nitrogen 13 mg/dL (7-17); Calcium 9.4 mg/dL (8.4-10.2); Carbon Dioxide 21 mmol/L (22-30); Chloride 105 mmol/L (98-107); Estimated CRCL calculation 91 ml/min; Estimated Glomerular Filt Rate > 60; Glucose 114 mg/dL (65-110); Lipase 85 U/L (23-300); Magnesium 2.0 mg/dL (1.6-2.3); Potassium 3.1 mmol/L (3.4-5.0); Sodium 137 mmol/L (137-145); Total Protein 8.3 g/dL (6.3-8.2)
--- NOTE | 2025-04-07 01:37 | ED.GENADULT ---
HPI - General Adult General Chief complaint: Recheck/Abnormal Lab/Rx Stated complaint: bilateral flank pain, htn 190/137 Time Seen by Provider: 04/07/25 01:11 History of Present Illness HPI narrative: Patient is a 45-year-old female who presents to the emergency department this evening complaining of bilateral flank pain. This is a chronic condition for the patient she has been seen here multiple times in the past. She does have a history of kidney stones but she has not had 1 in a while. Patient also has a history of hypertension that is poorly controlled with multiple home medications. Denies any dysuria or hematuria. No additional symptoms or concerns at this time. Related Data Home Medications ?Medication ?Instructions ?Recorded ?Confirmed ?Last Taken ?Type multivitamin 1 tablet PO DAILY 04/04/22 02/22/25 02/21/25 10:00 History nebivolol 10 mg tablet (Bystolic) 10 mg PO BID 10/21/24 02/22/25 02/21/25 10:00 History omeprazole 20 mg capsule,delayed 20 mg PO DAILY 11/23/24 02/22/25 02/20/25 22:00 History release tamsulosin 0.4 mg capsule 0.4 mg PO DAILY PRN urinary 11/26/24 02/22/25 02/19/25 22:00 History retention amlodipine 10 mg tablet 10 mg PO BID 02/22/25 02/22/25 02/21/25 15:00 History Allergies Allergy/AdvReac Type Severity Reaction Status Date / Time ketorolac (From Toradol) Allergy Headache,Rash, Verified 04/07/25 01:03 Swollen tongue tramadol AdvReac Mild VOMITING/HE Verified 04/07/25 01:03 ADACHE hydralazine AdvReac Headache Verified 04/07/25 01:03 Review of Systems Review of Systems: All systems are reviewed and are negative unless stated otherwise in the HPI. [facility] Past Medical History Medical History Left ureteral stone Hypertension Gastroesophageal reflux disease Sleep paralysis, recurrent isolated Smoker Obesity Depression Multiple kidney stones Seasonal allergies Surgical History Surgical History H/O ureteroscopy 10/21/24 on the right due to proximal ureteral stone; Dr Gonzalez History of laparoscopic cholecystectomy on 04/25/23 PDC History of tubal ligation History of endometrial ablation (2010) History of hysterectomy (2016) History of open reduction and internal fixation (ORIF) procedure (2012) Left elbow. History of section 2000, 2001, 2010 Status post cystoscopy with ureteral stent placement Family History Family History Mother Diabetes mellitus Depression Alcoholism Father Hypertension Diabetes mellitus Sibling Congenital heart disease Son Asthma Grandparent Diabetes mellitus Cerebrovascular accident Social History Social History Social History: Surrogate medical decision maker: Bang Luke, spouse. Code status: Full code. Smoking packs per day: 0.5 Smoking cigarettes per day: 10.0 Years smoked: 32 Smoking pack-years: 16.00 Smoking status: Current every day smoker Tobacco type: cigarettes Second hand tobacco smoke exposure: Yes Alcohol intake: current Alcohol use details: Social alcohol use in moderation. Substance use: never Substance use type: does not use Do You Feel Safe in your Home?: Yes Lack of Transportation: No Lack of Food: Never True Current Housing: I Have Housing Concerned About Future Housing: No Difficulty Paying Gas/Electric Bills: No Difficulty Paying for Meds: No Currently Unemployed: No Education: Associate Degree Difficulty w/ Childcare or Family Care: No Living arrangements: with family Spiritual care concerns: No Exam Narrative: General: Alert, awake, afebrile, in no acute distress. HEENT: PERRL, no rhinorrhea, no post nasal drip, oropharynx clear. Neck: Trachea midline, no JVD, no lymphadenopathy. Cardiovascular: Regular rate and rhythm, no murmurs, rubs or gallops, no peripheral edema. Respiratory: Clear to auscultation bilaterally, no tachypnea, no wheezing, no rhonchi, no rubs, no respiratory distress. Abdomen: Soft, nontender, nondistended, no rebound, no guarding, no peritoneal signs. Musculoskeletal: No joint swelling or deformity, normal muscle tone. Skin: No rashes or petechia, no signs of infection. Psychiatric: Alert and oriented, normal behavior and judgment for situation. Neurological: Alert and oriented to person, place, and time. Follows all commands. No focal deficits, speech is clear and fluent. Course Vital Signs Vital signs: Vital Signs Temperature 97.7 F 04/07/25 01:01 Pulse Rate 104 H 04/07/25 01:01 Respiratory Rate 16 04/07/25 01:01 Blood Pressure 191/137 H 04/07/25 01:01 Pulse Oximetry 97 04/07/25 01:01 Oxygen Delivery Room Air 04/07/25 01:01 Temperature 98.3 F 04/07/25 01:34 Pulse Rate 77 04/07/25 02:27 Respiratory Rate 15 04/07/25 02:27 Blood Pressure 168/113 H 04/07/25 02:27 Pulse Oximetry 94 04/07/25 02:27 Oxygen Delivery Room Air 04/07/25 01:34 Medical Decision Making MDM Narrative Medical decision making narrative: The patient was evaluated by myself in the emergency department. History is obtained from patient who is an independent historian and physical exam was performed. External medical records were reviewed at this time. IV was established and pertinent tests were ordered. Patient was administered a total of 40mg of IV Labetalol with improvement of her BP to 168/113 mmHg. EKG was obtained which revealed sinus rhythm rate of 72 beats per minute. No ST changes, T wave inversions or evidence of acute ischemia. EKG was independently interpreted by me and is currently pending official cardiology read. Laboratory results obtained revealing a potassium level of 3.1 otherwise no acute process. Urinalysis unremarkable. patient was administered for the 40mEq oral potassium. Shared medical decision making with patient regarding obtaining imaging was discussed at this time. I did inform the patient given her clear urine with no evidence of UTI or hematuria /RBCs, CT is not indicated at this time as I am not concern for pyelo or kidney stones. Patient is in agreement. This is a chronic condition patient has been seen in the emergency department for multiple times. Patient was informed that her pain will be controlled in the emergency department with pain medications but she does follow-up with urologist regarding this chronic pain. Differential diagnosis considerations include pain seeking behavior, chronic pain, kidney stones, pyelonephritis. Comorbidities impacting this visit include history of chronic bilateral flank pain and kidney stones. I have evaluated and discussed social determinants of health with the patient that could potentially impact subsequent diagnosis and treatment plans. On repeat assessment of the patient, reevaluation revealed that the patient is doing well and is in no acute distress. Patient symptoms have improved since she arrived to our emergency department. Repeat vital signs were all reviewed and noted to be stable. Differential diagnosis and treatment plan were discussed with the patient at bedside. Patient agrees with discussion and after shared medical decision making agrees with discharge. All questions were answered to the patient's satisfaction. Patient will follow up with Urology in 3-5 days. Patient was provided with strict return precautions and instructed to return to the emergency department if any new or worsening symptoms develop. The patient was discharged in stable condition. Vital Signs Vital Signs: Vital Signs Temperature 97.7 F 04/07/25 01:01 Pulse Rate 104 H 04/07/25 01:01 Respiratory Rate 16 04/07/25 01:01 Blood Pressure 191/137 H 04/07/25 01:01 Pulse Oximetry 97 04/07/25 01:01 Oxygen Delivery Room Air 04/07/25 01:01 Temperature 98.3 F 04/07/25 01:34 Pulse Rate 77 04/07/25 02:27 Respiratory Rate 15 04/07/25 02:27 Blood Pressure 168/113 H 04/07/25 02:27 Pulse Oximetry 94 04/07/25 02:27 Oxygen Delivery Room Air 04/07/25 01:34 Lab Data 04/07/25 01:21 04/07/25 01:21 Labs: Lab Results 04/07/25 04/07/25 Range/Units 01:17 01:21 WBC 8.7 (4.5-10.0) K/mm3 RBC 5.29 (4.2-5.4) M/mm3 Hgb 15.9 H (12.0-15.0) g/dL Hct 46.0 (37.0-47.0) % MCV 87.0 (80-100) fl MCH 30.1 (26-34) pg MCHC 34.6 (32-36) g/dl RDW 12.6 (11.5-14.5) % Plt Count 271 (150-375) k/mm3 MPV 9.1 (7.4-10.4) fl Immature Gran % (Auto) 0.3 (0-0.5) % Neut % (Auto) 58.7 (45.5-73.1) % Lymph % (Auto) 30.9 (18.3-44.2) % [place] % (Auto) 8.0 (2.6-8.5) % Eos % (Auto) 1.5 (0-4.4) % Baso % (Auto) 0.6 (0.2-1.2) % Lymph # (Auto) 2.69 (0.9-3.2) K/mm3 [place] # (Auto) 0.7 H (0.1-0.6) K/mm3 Eos # (Auto) 0.1 (0-0.3) K/mm3 Baso # (Auto) 0.1 (0.0-0.1) K/mm3 Abs Immat Gran (auto) 0.03 (0.00-0.031) K/mm3 Absolute Neuts (auto) 5.1 (1.3-6.7) K/mm3 Absolute Nucleated RBC 0.000 (0.0-0.012) K/mm3 Nucleated RBC % 0.0 (0.0-0.2) % Sodium 137 (137-145) mmol/L Potassium 3.1 L (3.4-5.0) mmol/L Chloride 105 (98-107) mmol/L Carbon Dioxide 21 L (22-30) mmol/L Anion Gap 11 (4-12) mmol/L BUN 13 (7-17) mg/dL Creatinine 0.68 L (0.7-1.0) mg/dL Estim Creat Clear Calc 91 ml/min Estimated GFR > 60 (59 - ) Glucose 114 H (65-110) mg/dL Calcium 9.4 (8.4-10.2) mg/dL Magnesium 2.0 (1.6-2.3) mg/dL Total Bilirubin 0.8 (0.2-1.3) mg/dL AST 58 H (14-36) U/L ALT 65 H (6-35) U/L Alkaline Phosphatase 93 (38-126) U/L Total Protein 8.3 H (6.3-8.2) g/dL Albumin 4.7 (3.5-5.1) g/dL Lipase 85 (23-300) U/L Urine Color Yellow (Yellow) Urine Appearance Cloudy H (Clear) Urine pH 6.0 (5.0-9.0) Ur Specific [place] 1.018 (1.001-1.035) Urine Protein Negative (Negative) mg/dL Urine Glucose (UA) Negative (Negative) mg/dL Urine Ketones Trace H (Negative) mg/dL Ur Blood (Man) Negative (Negative) Urine Nitrate Negative (Negative) Urine Bilirubin Negative (Negative) Urine Urobilinogen 0.2 (<2.0) mg/dL Add Ur Microanalysis Reviewed Leukocyte Esterase Rfl Negative (Negative) ALEKSANDRA/UL Urine RBC 0-2 (0-2) /hpf Urine WBC 6-10 H (0-3) /hpf Ur Squamous Epith Cells Occasional (Few) /hpf Urine Bacteria 2+ H /hpf Urine Casts 0-2 Discharge Plan Discharge Clinical Impression: Acute hypokalemia, Hypertensive urgency, Chronic flank pain Patient Disposition: Home Condition: Improved Instructions: Antibiotic Form, Hypertension (ED), Flank Pain (ED) Additional Instructions: Please follow-up with urologist regarding her chronic flank pain within the next 3-5 days. You also instructed follow-up with your primary care physician or whoever manages your blood pressure medications as you may need to have your blood pressure medications readjusted. Return to the ED if any new or worsening symptoms develop. Patient Language: Greek Prescriptions: No Action multivitamin Tablet 1 tablet PO DAILY ondansetron 4 mg tablet,disintegrating 4 mg PO Q8H Qty: 14 0RF nebivolol [Bystolic] 10 mg tablet 10 mg PO BID acetaminophen 500 mg capsule 1,000 mg PO Q6H PRN (Reason: pain) Qty: 30 0RF tamsulosin 0.4 mg capsule 0.4 mg PO DAILY PRN (Reason: urinary retention) Rx Instructions: kidney stones omeprazole 20 mg capsule,delayed release(DR/EC) 20 mg PO DAILY amlodipine 10 mg tablet 10 mg PO BID Rx Instructions: TAKE 1 TABLET BY MOUTH DAILY losartan 50 mg tablet See Rx Instructions .ROUTE .COMPLEX Qty: 180 0RF Dose Instruction: TAKE 1 TABLET BY MOUTH TWICE DAILY Rx Instructions: TAKE 1 TABLET BY MOUTH TWICE DAILY hydrochlorothiazide 25 mg tablet See Rx Instructions .ROUTE .COMPLEX Qty: 90 0RF Dose Instruction: TAKE 1 TABLET BY MOUTH EVERY MORNING Rx Instructions: TAKE 1 TABLET BY MOUTH EVERY MORNING Follow-up/Referrals: Lucas Carter DO [Primary Care Provider, Internal Medicine] - 3 Days Time of Disposition: 01:56
[2025-04-07 01:41] LABS: Add Urine Microscopic? YES; Appearance Urine Cloudy (Clear); Glucose Urine UA Negative (Negative); Leukocyte Esterase Ur Negative LEU/UL (Negative); Need Manual Microscopic Reviewed; Nitrate Urine Negative (Negative); Non Pathogenic Casts 0-2; Specific Grav Ur 1.018 (1.001-1.035)
[2025-04-07] MEDS: POTASSIUM CHLORIDE 20 MEQ PACKET (FOR LIQUID) 40 MEQ PO (01:43)
[2025-04-07 02:01] VITALS: BP 178/125; PULSE 79; RESP 13; O2SAT 95
[2025-04-07] MEDS: ONDANSETRON INJ 4 MG/2 ML VIAL IV PUSH (02:04)
[2025-04-07] MEDS: MORPHINE SULFATE (*CRX) 4 MG/ML INJ IV PUSH (02:04)
[2025-04-07 02:15] VITALS: PULSE 82; RESP 19; O2SAT 93
[2025-04-07 02:17] VITALS: BP 168/113; PULSE 78; RESP 13; O2SAT 93
[2025-04-07 02:27] VITALS: BP 168/113; PULSE 77; RESP 15; O2SAT 94
== END 2025-04-07 02:23 | disposition home or self-care (01) ==
PROVIDERS: Emergency Provider Emergency Medicine; PCP Internal Medicine
DX: E87.6 Hypokalemia (principal); I16.0 Hypertensive urgency; R10.9 Unspecified abdominal pain; G89.29 Other chronic pain; Z87.442 Personal history of urinary calculi; I10 Essential (primary) hypertension; K21.9 Gastro-esophageal reflux disease without esophagitis; F32.A Depression, unspecified; F17.210 Nicotine dependence, cigarettes, uncomplicated
CPT/HCPCS: 36415; 80053; 81001; 83690; 83735; 85025; 87086; 93005; 96374; 96375; 96376; 99284; A9270; J2270; J2405

== ENCOUNTER 2025-05-03 18:38 | Emergency (ER) | payer OTHER, SELFPAY ==
--- NOTE | ~2025-05-03 | CT_ITS ---
CT ABDOMEN AND PELVIS WITHOUT CONTRAST Clinical History: right flank pain, hx kidney stones Comparison: 02/21/2025 Technique: Unenhanced axial images lung bases to symphysis pubis Coronal, sagittal reformats CT images acquired with automatic exposure control for dose reduction DLP: 284 mGy-cm Findings: Without intravenous contrast, sensitivity for detecting visceral parenchymal abnormalities decreased. Lung bases: Clear. Visualized heart and pericardium: Unremarkable. Liver: Steatosis. Enlarged. Gallbladder: Removed. Spleen: Unremarkable. Pancreas: Unremarkable. Adrenal glands: Unremarkable. Kidneys: Right kidney- No hydronephrosis. 2 mm stone. Left kidney- No hydronephrosis. No renal stones. Distal esophagus/stomach: Unremarkable. Small bowel loops: Normal caliber and wall thickness. Air fluid levels. Colon: Normal caliber and wall thickness. Normal RLQ appendix. Nodes: No enlarged nodes. Peritoneum: No ascites. No free intraperitoneal air. Urinary bladder: Unremarkable. Adnexa: No masses. Bones: No acute bony abnormality. Soft tissues: Unremarkable. Unopacified abdominal aorta: No aneurysmal dilatation. Atherosclerotic disease. IMPRESSION: 1. Enteritis. 2. No other acute abnormality. 3. Small right renal stone persists. No hydronephrosis. Reviewed, dictated and finalized at location R.
--- OUTSIDE RECORDS SUMMARY | 2025-05-03 18:40 | XMS_ITS | Clinical Summary ---
Author Organization [facility] [employer] Address [address] [place] [address] Care Team Providers Care [employer] Name Role Phone Damian Sadler MD Primary Care Provider [phone] Source Comments [facility] [employer],non-owned Affiliates and Associated Physician Practices is amultiple site organization consisting of ambulatory clinics and hospital sitesin [place], [place], [place] and [place]. This disclosure is being madepursuant to the Care Everywhere program and may not contain all information available regarding this patient. 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 Gender Identity Not on file Sexual Orientation [...] VACCINE (1 of 2 - PCV) 1998 DEPRESSION SCREENING 08/12/2024 COVID-19 VACCINE (1 - 2023-2 5 season) 2025 INFLUENZA VACCINE (#1) 2025 5, 05/12/2015 SCREENING FOR DIABETES 02/02/2027 4, [...] Resulting Agency Comment Lab Testing performed at: [email or web address] [id number] Nancy Cotto MD LAB - CHEMISTRY ORDERABLES Final Result [facility] INSURANCE BILL [address] [place] [address] * (ABNORMAL) COMPREHENSIVE METABOLIC PANEL (02/03/2024 1:03 [...] 7 - 23 02/03/2024 1:45 AM [facility] Osmolality Calculated 286 275 - 295 mOsm/kg 02/03/2024 1:45 AM CDT [facility] Albumin/Globulin Ratio 1.3 1.1 - 2.3 02/03/2024 1:45 AM CDT [facility] eGFR by CKD-EPI >90 >=90 mL/min/1.7 3 m2 02/03/2024 1:45 AM CDT [facility] Blood BLOOD SPECIMEN / Unknown Venipuncture / Unknown 02/03/2024 1:03 AM CDT 02/03/2024 1:17 AM CDT us Kaylee Reyes MD LAB - CHEMISTRY ORDERABLES Fi nal Result [facility] [address] [place] [address], [facility] [phone] from Last 3 Months or Most Recently Relevant to Health Maintenance Insurance [phone] (Work) [address] [place] [place] [id number] MEDICAID [place] SELF PAY NO INSURANCE Member Subscriber Plan / Payer (Ef fective for All Dates) Name:Tita Luke Member ID:Not on file Relation to Subscriber:Not on file Name:TITA LUKE Subscriber ID:Not on file (Home) Address: [address] [place] [id number] Payer ID:Not on file Group ID:Not on file Type:Self Pay Address: [facility] [id number] [place] [address] * Guarantor: TITA LUKE Account Type Relation to Patient Date of Phone Billing Address Personal/Family Spouse [address] [place] [phone] Care Teams [employer] Relationship Specialty Start Date End Date Sadler, Damian C, MD PCP - General Internal Medicine 07/04/16
--- OUTSIDE RECORDS SUMMARY | 2025-05-03 18:41 | XMS_ITS | Clinical Summary ---
Author Organization [facility] Address [address] [place] [address] Phone Care Team Providers Care Public Health Physician Name Role Phone Damian Diamond MD Primary Care Provider [phone] Allergies Active Allergy Reactions Criticality Noted Date [...] needed for Other. 30 Tablet 02/10/2025 Active HYDROcodone-rafa taminophen (NORCO) 5-325 MG TabletIndicatio ns:Acute cystitis without hematuria Take 1-2 Tablets by mouth every 4 hours as needed for Severe pain. 10 Tablet 04/20/2025 Active cephALEXin (KEFLEX) 500 MG Capsule Take 1 Capsule by mouth 2 times daily for 7 days. 14 Capsule 04/27/2025 Active Potassium Chloride ER (KLORCON) 20 MEQ Tablet Controlled Release Take 1 Tablet by mouth daily for 7 days. 7 Tablet 04/27/2025 Active meloxicam (VIVLODEX) 10 MG Capsule Take 1 Capsule by mouth daily for 15 days. 15 Capsule 04/27/2025 Active Encounters Date Type Department Care Team Description 04/26/2025 9:49 PM CDT - 04/27/2025 2:14 AM CDT [facility] [address] [place] [address] Paul Daniels MD Cystitis Discharge Disposition: Discharged to home or Selfcare 04/26/2025 Travel 04/20/2025 7:00 PM CDT - 04/20/2025 8:55 PM CDT Emergency [facility] Emergency [address] [place] [address] Paul Daniels MD Acute cystitis without hematuria Discharge Disposition: Discharged to home or Selfcare 04/20/2025 Travel 04/04/2025 Travel 02/18/2025 8:51 AM CDT - 02/18/2025 11:59 PM CDT [facility] Ul[facility]ound [address] [place] [address] Damian Diamond MD Discharge Disposition: Discharged to home or Selfcare 02/18/2025 7:44 AM CDT - 02/18/2025 8:50 AM CDT [facility] M[facility] [address] [place] [address] Damian Diamond MD Discharge Disposition: Discharged to home or Selfcare 02/17/2025 Travel 02/10/2025 3:30 PM CDT Office Visit [facility] - Family Medicine [facility] [address] [place] [address] Damian Diamond MD Primary hypertension (Primary Dx); Chronic neck pain; Low back pain, unspecified back pain laterality, unspecified chronicity, unspecified whether sciatica present Discharge Disposition: Discharged to home or Selfcare 02/10/2025 Travel 02/05/2025 10:51 PM CDT - 02/06/2025 1:23 AM CDT Emergency [facility] Emergency 1 [facility] [place] [address] Mike Melgar MD Chronic abdominal pain Discharge Disposition: Discharged to home or Selfcare 02/05/2025 Travel from Last 3 Months Immunizations Immunization [...] drink = 0.6 oz pur e alcohol) [facility] Utilities Answer Date Recorded In the past 12 months has [employer], gas, oil, or water company threatened [...] week 01/11/2025 How often do you attend [facility] or faith services? Never 01/11/2025 Do you belong to any clubs o r organizations such as baptist groups, unions, fraternal or athletic groups, or [...] 01/11/2025 [facility] - Occupational Stress Questionnaire Answer Date Recorded [...] time in the past 12 m [facility], were you homeless or living in a assisted (including now)? No 01/11/2025 Sexually Active Control Partners Comments Not Currently Male Comments No Sex and Gender Information Value Date Recorded Sex Assigned at Female 01/08/2025 1:59 AM CDT Legal Sex Female 3:04 PM CDT Gender Identity Female 01/08/2025 1:59 AM CDT Sexual Orientation Straight 01/08/2025 1: 59 AM CDT Last Filed Vital Signs Vital Sign Reading Time Taken Comments Blood Pressure 205/124 04/27/2025 2:00 AM CDT Pulse 89 04/27/2025 2:00 AM CDT Temperature 36.6 C (97.8 F) 04/26/2025 10:03 PM CDT Respiratory Rate 18 04/26/2025 10:03 PM CDT Oxygen Saturation 97% 04/27/2025 2:00 AM CDT Inhaled Oxygen Concentration - - Weight 86.2 kg (190 lb) 04/26/2025 10:03 PM CDT Height 160 cm (5' 3) 04/26/2025 10:03 PM CDT Body Mass Index 33.66 04/26/2025 10:03 PM CDT Plan of Treatment Health Maintenance Due Date Last Done Comments TdaP Immunization 1980 Hepatitis B Immunization (1 of 3 - 19+ 3-dose series) 1998 Pneumococcal Immunization Combined (1 of 2 - PCV) 1998 Cologuard 02/26/2024 Colonoscopy 02/26/2024 Colorectal Cancer Screening 02/26/2024 Immunochemical Fecal Occult Blood 02/26/2024 Influenza Immunization (#1) 04/12/202506/12, 05/12/2015 SARS-COV-2 Immunization ( season) 2025 Mammogram 02/18/2026 02/18/2025 Respiratory Syncytial Virus (RSV) [...] Date/Time Associated Diagnosis Comments CT ABDOMEN PELVIS W/ CONTRAST Stat with Interpretation 04/26/2025 11:47 PM CDT URINALYSIS REFLEX IF INDICATED BY ABNORMAL RESULTS STAT 04/26/2025 10:03 PM CDT CULTURE, URINE STAT 04/26/2025 10:03 PM CDT GOLD TOP TUBE STAT 04/26/2025 10:01 PM CDT BLUE TOP TUBE STAT 04/26/2025 10:01 PM CDT CBC WITH AUTO DIFFERENTIAL STAT 04/26/2025 10:01 PM CDT EXTRA TUBES STAT 04/26/2025 10:01 PM CDT CMP (COMPREHENSIVE METABOLIC PANEL) STAT 04/26/2025 10:01 PM CDT COMPLETE BLOOD COUNT (CBC) WITH DIFF STAT 04/26/2025 10:[address] - ABDOMEN/PELVIS 04/26/2025 12:00 AM CDT URINALYSIS REFLEX IF INDICATED BY ABNORMAL RESULTS STAT 04/20/2025 7:15 PM CDT CULTURE, URINE STAT 04/20/2025 7:15 PM CDT CBC WITH AUTO DIFFERENTIAL STAT 04/20/2025 6:04 PM CDT CMP (COMPREHENSIVE METABOLIC PANEL) STAT 04/20/2025 6:04 PM CDT COMPLETE BLOOD COUNT (CBC) WITH DIFF STAT 04/20/2025 6:04 PM CDT [facility] US BREAST LIMITED RT Routine 02/18/2025 9:35 AM CDT Abnormal mammogram [facility] DIAG BILATERAL DIGITAL W CAD W [...] from Last 3 Months Results * CT ABDOMEN PELVIS W/ CONTRAST (04/26/2025 11:47 PM CDT) Anatomical Region Laterality Modality Abdomen N/A Computed Tomogra phy 04/26/2025 11:4 7 PM CDT Impressions 04/27/2025 6:04 AM CDT IMPRESSION: 1. Mild wall thickening of the colon suggestive of colitis. Trace amounts of fluid within the colon raises the possibility of diarrhea. 2. Hepatic steatosis. 3. Left ovarian cyst most likely representing a follicle. 4. Punctate nonobstructing right nephrolithiasis. The preliminary report and any related communication were provided by [facility]'s After Hours service, as documented in the medical record. Narrative 04/27/2025 6:04 AM CDT DICTATING PHYSICIAN: Zack Byrnes M.D., [facility] EXAM: CT ABDOMEN PELVIS W/ CONTRAST 04/26/2025 11:47 PM Patient : 1980 Age: 45 years Gender: Female NUMBER OF IMAGES \ views: 750 INDICATION: Right-sided pain and dysuria starting 15 days ago, nausea, chills COMPARISON: 02/06/2025 TECHNIQUE: Axial computerized tomography sections of the abdomen and pelvis with coronal MPR reconstructions were obtained from the top of the diaphragm to the pelvis. Postcontrast imaging was obtained during the portal venous and delayed phases. A total of 100 mL of Isovue-300 intravenous contrast was utilized. This study is limited in its evaluation of the gastrointestinal tract due to the lack of oral contrast. Low-dose CT acquisition technique included one of following options; 1 . Automated exposure control, 2. Adjustment of MA and or KV according to patient's size or 3. Use of iterative reconstruction. FINDINGS: THORACIC BASE: Unremarkable. LIVER: Diffuse hypoattenuation of the liver is compatible with steatosis. BILIARY: The gallbladder is surgically absent. PANCREAS: Unremarkable. SPLEEN: Unremarkable. ADRENALS: Unremarkable. KIDNEYS: No hydronephrosis is present. A 0.3 cm stone is seen within the right kidney, similar to the prior exam. PELVIS: The uterus is not visualized. A 2.7 cm cyst is seen within the left ovary, most likely due to a follicle. GI: No evidence of free air or bowel obstruction. The appendix is unremarkable. Mild wall thickening of the colon is seen. A small amount of fluid within the colon is present. The GI tract is largely decompressed. MSK: No acute osseous findings. LYMPH NODES: Unremarkable. OTHER: A few atherosclerotic calcifications are seen within the abdominal aorta. Procedure Note Zack Fry MD - 04/27/2025 DICTATING PHYSICIAN: Zack Byrnes M.D., [facility] EXAM: CT ABDOMEN PELVIS W/ CONTRAST 04/26/2025 11:47 PM Patient : 1980 Age: 45 years Gender: Female NUMBER OF IMAGES \ views: 750 INDICATION: Right-sided pain and dysuria starting 15 days ago, nausea,chills COMPARISON: 02/06/2025 TECHNIQUE: Axial computerized tomography sections of the abdomen andpelvis with coronal MPR reconstructions were obtained from the top of thediaphragm to the pelvis. Postcontrast imaging was obtained during theportal venous and delayed phases. A total of 100 mL of Isovue-300intravenous contrast was utilized. This study is limited in its evaluationof the gastrointestinal tract due to the lack of oral contrast. Low-dose CT acquisition technique included one of following options; 1 .Automated exposure control, 2. Adjustment of MA and or KV according topatient's size or 3. Use of iterative reconstruction. FINDINGS: THORACIC BASE: Unremarkable. LIVER: Diffuse hypoattenuation of the liver is compatible withsteatosis. BILIARY: The gallbladder is surgically absent. PANCREAS: Unremarkable. SPLEEN: Unremarkable. ADRENALS: Unremarkable. KIDNEYS: No hydronephrosis is present. A 0.3 cm stone is seen within theright kidney, similar to the prior exam. PELVIS: The uterus is not visualized. A 2.7 cm cyst is seen within theleft ovary, most likely due to a follicle. GI: No evidence of free air or bowel obstruction. The appendix isunremarkable. Mild wall thickening of the colon is seen. A small amount offluid within the colon is present. The GI tract is largely decompressed. MSK: No acute osseous findings. LYMPH NODES: Unremarkable. OTHER: A few atherosclerotic calcifications are seen within the abdominalaorta. IMPRESSION: 1. Mild wall thickening of the colon suggestive of colitis. Trace amountsof fluid within the colon raises the possibility of diarrhea. 2. Hepatic steatosis. 3. Left ovarian cyst most likely representing a follicle. 4. Punctate nonobstructing right nephrolithiasis. The preliminary report and any related [facility], as documented in the medical record. Paul Daniels MD IM CT ORDERABLES Final Re sult * (ABNORMAL) URINALYSIS REFLEX IF INDICATED BY ABNORMAL RESULTS (04/26/2025 10:03 PM CDT) Only the most recent of3 resultswithin the time period is included. SPECIFIC GRAVITY 1.025 1.003 - 1.030 04/26/2025 10:33 PM CDT [facility] URINE PH 6.0 5.0 - 9.0 04/26/2025 10:33 PM CDT [facility] WBC ESTERASE 25 /ul(A) Negative 04/26/2025 10:33 PM CDT [facility] NITRITE Negative Negative 04/26/2025 10:33 PM CDT [facility] PROTEIN, RANDOM URINE 30 mg/dL(A) Negative 04/26/2025 10:33 PM CDT [facility] URINE GLUCOSE, QUAL Negative Negative 04/26/2025 10:33 PM CDT [facility] URINE KETONES Negative Negative 04/26/2025 10:33 PM CDT [facility] UROBILINOGEN Normal Normal mg/dL 04/26/2025 10:33 PM CDT [facility] URINE BLOOD 250 /uL(A) Negative thais/ul 04/26/2025 10:33 PM CDT [facility] URINALYSIS COLOR Yellow 04/26/20 10:33 PM CDT [facility] URINALYSIS CLARITY Slightly Cloudy 04/26/2025 10:33 PM CDT [facility] WBC (Urine) 6-10(A) Negative, 0-5 /hpf 04/26/2025 10:33 PM CDT [facility] URINE RBC'S 21-50(A) Negative, 0-2 /hpf 04/26/2025 10:33 PM CDT [facility] EPITHELIAL CELLS Small amount /lpf 2024 10:33 PM CDT [facility] BACTERIA, URINE Many(A) Negative /hpf 04/26/2025 10:33 PM CDT [facility] CRYSTALS Calcium oxalate 04/26/2025 10:33 PM CDT [facility] Urine URINE SPECIMEN / Unknown Non-Phlebotomy Collection / Unknown 04/26/2025 10:03 PM CDT 04/26/2025 10:11 PM CDT us Paul Daniels MD URINE ORDERABLES Final Res ult [facility] [address] [place] [address] * Culture, Urine (04/26/2025 10:03 PM CDT) Only the most recent of2 resultswithin the time period is included. CULTURE RESULTS Mixed Growth of One or More Distal Urethral Contaminants 04/28/2025 9:21 AM CDT [facility] Urine URINE SPECIMEN / Unknown Non-Phlebotomy Collection / Unknown 04/26/2025 10:03 PM CDT 04/26/2025 10:11 PM CDT Paul Daniels MD MICROBIOLOGY - GENERAL ORD ERABLES Final Result [facility] [address] [place] [address], [place] * Gold Top Tube (04/26/2025 10:01 PM CDT) Blood No Phlebotomy Charged / Unknown 04/26/2025 10:01 PM CDT 04/26/2025 10:11 PM CDT Paul Daniels MD CHEMISTRY ORDERABLES Final Result [facility] [address] [place] [address] * Blue Top Tube (04/26/2025 10:01 PM CDT) Blood No Phlebotomy Charged / Unknown 04/26/2025 10:01 PM CDT 04/26/2025 10:11 PM CDT Paul Daniels MD HEMATOLOGY ORDERABLES Sandra l Result Performing Organization Address City/[facility]/ZIP Co de Phone Number [facility] [address] [place] [address] * CBC with Auto Differential (04/26/2025 10:01 PM CDT) Only the most recent of3 resultswithin the time period is included. WBC 8.33 4.00 - 12.00 10(3)/mcL 04/26/2025 10:18 PM CDT [facility] RBC 4.91 3.80 - 5.30 10(6)/mcL 04/26/2025 10:18 PM CDT [facility] HEMOGLOBIN (HGB) 15.1 12.0 - 15.8 g/dL 04/26/2025 10:18 PM CDT [facility] HEMATOCRIT (HCT) 42.6 36.0 - 47.0 % 04/26/2025 10:18 PM CDT [facility] MCV 86.8 82.0 - 96.0 fL 04/26/2025 10:18 PM CDT [facility] MCH 30.8 26.0 - 34.0 pg 04/26/2025 10:18 PM CDT [facility] MCHC 35.4 31.0 - 36.0 g/dL 04/26/2025 10:18 PM CDT [facility] PLATELET COUNT 229 140 - 440 10(3)/mcL 04/26/2025 10:18 PM CDT [facility] RDW 12.3 11.8 - 15.5 % 04/26/2025 10:18 PM CDT [facility] MPV 10.3 9.7 - 12.4 fL 04/26/2025 10:18 PM CDT [facility] NEUTROPHILS 57.9 47.0 - 73.0 % 04/26/2025 10:18 PM CDT [facility] LYMPHOCYTES 33.0 18.0 - 42.0 % 04/26/2025 10:18 PM CDT [facility] MONOCYTES 7.4 4.0 - 12.0 % 04/26/2025 10:18 PM CDT [facility] EOSINOPHILS 1.1 0.0 - 5.0 % 04/26/2025 10:18 PM CDT [facility] BASOPHILS 0.4 0.0 - 1.0 % 04/26/2025 10:18 PM CDT [facility] IMMATURE GRANULOCYTE 0.2 0.0 - 0.4 % 04/26/2025 10:18 PM CDT [facility] ABSOLUTE NEUTROPHILS 4.82 1.60 - 7.70 10(3)/mcL 04/26/2025 10:18 PM CDT [facility] ABSOLUTE LYMPHOCYTES 2.75 1.30 - 3.20 10(3)/mcL 04/26/2025 10:18 PM CDT [facility] ABSOLUTE MONOCYTES 0.62 0.20 - 1.00 10(3)/mcL 04/26/2025 10:18 PM CDT [facility] ABSOLUTE EOSINOPHIL 0.09 0.00 - 0.40 10(3)/[facility] 04/26/2025 10:18 PM CDT [facility] ABSOLUTE BASOPHILS 0.03 0.00 - 0.10 10(3)/[facility] 04/26/2025 10:18 PM CDT [facility] ABSOLUTE IMMATURE GRANULOCYTE 0.02 0.00 - 0.03 10 (3) [facility]. 04/26/2025 10:18 PM CDT [facility] NRBC PER 100 WBC 0 04/26/20 25 10:18 PM CDT [facility] Blood Venipuncture / Unknown 04/26/2025 10:01 PM CDT 04/26/2025 10:12 PM CDT us Paul Daniels MD HEMATOLOGY ORDERABLES Sandra l Result [facility] [address] [place] [address] * (ABNORMAL) CMP (Comprehensive Metabolic Panel) (04/26/2025 10:01 PM CDT) Only the most recent of3 resultswithin the time period is included. SODIUM 141 136 - 145 mmol/L 04/26/2025 10:46 PM CDT [facility] POTASSIUM 2.7(LL) 3.5 - 5.1 mmol/L 04/26/2025 10:46 PM CDT [facility] CHLORIDE 104 98 - 107 mmol/L 04/26/2025 10:46 PM CDT [facility] CO2, VENOUS 22 22 - 30 mmol/L 04/26/2025 10:46 PM CDT [facility] ANION GAP 17.7 <18.0 mmol/L 04/26/2025 10:46 PM T [facility] GLUCOSE 140(H) 70 - 99 mg/dL 04/26/2025 10:46 PM CDT [facility] BUN 14 5 - 18 mg/dL 04/26/2025 10:46 PM [facility] CREATININE, BLOOD 0.80 0.60 - 1.00 mg/dL 04/26/2025 10:46 PM T [facility] BUN/CREATININE RATIO 18 12 - 20 ratio 04/26/2025 10:46 PM T [facility] TOTAL PROTEIN 7.5 6.0 - 8.0 g/dL 04/26/2025 10:46 PM T [facility] ALBUMIN 4.8 3.5 - 5.0 g/dL 04/26/2025 10:46 PM [facility] A/G RATIO 1.8 1.0 - 2.2 04/26/2025 10:46 PM CDT [facility] CALCIUM 9.5 8.7 - 10.5 mg/dL 04/26/2025 10:46 PM [facility] T BILI 0.6 0.2 - 1.2 mg/dL 04/26/2025 10:46 PM [facility] SGOT (AST) 33 <43 U/L 04/26/2025 10:46 PM [facility] SGPT (ALT) 43 <56 U/L 04/26/2025 10:46 PM T [facility] ALKALINE PHOSPHATASE 81 40 - 150 U/L 04/26/2025 10:46 PM [facility] GFR, ESTIMATED >60 >=60 04/26/2025 10:46 PM [facility] Comment: Creatinine Clearance is the preferred criteria for selecting drug dose adjustments in renally impaired patients. The GFR is provided as additional pertinent clinical information. GFR is reported in mL/min/1.73 sq m. Calculation based on the 2020 Chronic Kidney Disease Epidemiology Collaboration (CKD-EPI) equation refit without adjustment for race. GFR, EST. >60 >=60 025 10:46 PM CDT [facility] Comment: Creatinine Clearance is the preferred criteria for selecting drug dose adjustments in renally impaired patients. The GFR is provided as additional pertinent clinical information. GFR is reported in mL/min/1.73 sq m. Calculation based on the 2009 Chronic Kidney Disease Epidemiology Collaboration (CKD-EPI). GFR, EST. NONAFRICAN >60 >=60 04/26/2025 10:46 PM CDT [facility] Comment: Creatinine Clearance is the preferred criteria for selecting drug dose adjustments in renally impaired patients. The GFR is provided as additional pertinent clinical information. GFR is reported in mL/min/1.73 sq m. Calculation based on the 2009 Chronic Kidney Disease Epidemiology Collaboration (CKD-EPI). Blood Venipuncture / Unknown 04/26/2025 10:01 PM CDT 04/26/2025 10:12 PM CDT us Paul Daniels MD CHEMISTRY ORDERABLES Final Result Performing Organization Address [facility] Co de Phone Number [facility] [address] [place] [address] * CT - ABDOMEN/PELVIS (04/26/2025 12:00 AM CDT) 04/26/2025 us Provider Scan IMG CT ORDERABLES Final Result Performing Organization Address City/[facility]/ZIP Co de Phone Number SCAN * RUDOLPH US BREAST LIMITED RT (02/18/2025 [...] signed by: Cris Quintana M.D. ab/:02/18/2025 09:33:34 Electric Trucker(s): RT Jocelin(R)(M), [facility]; Jessica Vazquez RDMS OBGURU, [facility] letter sent: Normal Exam Abnormal History Reading location: [facility] STUDY BIRADS: Category 1: Negative Procedure Note [...] with the patient. Electronically signed by: Cris Qunitana M.D. ab/:02/18/2025 09:33:34 Electric Trucker(s): [facility] Vazquez RD[facility], [facility] letter sent: Normal Exam Abnormal History Reading location: [facility] OVERALL STUDY BIRADS: Category 1: [...] signed by: Cris Quintana M.D. ab/:02/18/2025 09:33:34 Electric Trucker(s): RT Jocelin(R)(M), [facility]; Jessica Vazquez RDMS OBGYAsif, [facility] letter sent: Normal Exam Abnormal History Reading location: [facility] STUDY BIRADS: Category 1: Negative Procedure Note [...] signed by: Cris Quintana M.D. ab/:02/18/2025 09:33:34 Electric Trucker(s): RT Jocelin(R)(M), [facility]; Jessica Vazquez RDMS OBGURU, [facility] letter sent: Normal Exam Abnormal History Reading location: [facility] OVERALL STUDY BIRADS: Category 1: Negative Damian Diamond MD IMG MAMMO ORDERABLES Final [...] R Carrillo M.D. KT: SHUN Report ID: [id number] Reading Location: [id number] Procedure Note Jose R Carrillo MD - [...] R Carrillo M.D. KT: SHUN Report ID: [id number] Reading Location: [place] [address] IMPRESSION: 1. No obstructing renal or ureteral calculus. 2. Punctate nonobstructing bilateral renal stones. 3. Fatty infiltration of the liver. 4. Surgical absence of the gallbladder. 5. Diverticulosis. No evidence of diverticulitis. Mike Melgar MD IMG CT ORDERABLES Final R esult * Magnesium Level (02/05/2025 10:58 PM CDT) Pathologist [facility] MAGNESIUM 1.8 1.6 - 2.6 mg/dL 02/05/2025 11:43 PM CDT [facility] Blood Venipuncture / Unknown 02/05/2025 10:58 PM CDT 02/05/2025 11:18 PM CDT Mike Melgar MD CHEMISTRY ORDERABLES Sandra l Result [facility] [address] [place] [address] * Lipase (02/05/2025 10:58 PM CDT) LIPASE 22 8 - 78 U/L 02/05/2025 11:43 PM CDT [facility] Blood Venipuncture / Unknown 02/05/2025 10:58 PM CDT 02/05/2025 11:18 PM CDT us Mike Melgar MD CHEMISTRY ORDERABLES Sandra l Result [facility] [address] [place] [address] from Last 3 Months Insurance MEDICAID [place] Care Teams Public Health Physician Relationship Specialty Start Date End Date Damian Diamond MD [address] [address] PCP - General Family Medicine 01/13/25
[2025-05-03 19:16] VITALS: BP 187/146; PULSE 98; RESP 18; TEMP 36.7; O2SAT 97
[2025-05-03 19:16] LABS: Add Urine Microscopic? YES; Appearance Urine Cloudy (Clear); Glucose Urine UA Negative (Negative); Leukocyte Esterase Ur Trace LEU/UL (Negative); Nitrate Urine Negative (Negative); Specific Grav Ur 1.018 (1.001-1.035)
--- NOTE | 2025-05-03 19:54 | PC.NURSE ---
Rn called out for pt name to take back to pt room at this time. Pt did not respond at this time to call out. official court interpreter notified.
--- NOTE | 2025-05-03 20:13 | PC.NURSE ---
Pt presents to ED c/o / R flank pain radiating to back, nausea and vomiting. Per pt has a kidney stone 4mm and kidney infection, was taking cipro and levofloxin- last dose today. Pt states pain has not improved, and she ran out of flomax, and zofran.
[2025-05-03 20:15] VITALS: BP 188/128; PULSE 95; RESP 20; TEMP 36.4; O2SAT 98
[2025-05-03 20:35] LABS: Hematocrit 41.4 % (37.0-47.0); Hemoglobin 14.6 g/dL (12.0-15.0); Immature Granulocyte Percent A 0.2 % (0-0.5); Lymphocytes Absolute Auto 1.91 K/mm3 (0.9-3.2); Mean Corpuscular HGB Conc 35.3 g/dl (32-36); Mean Corpuscular Hemoglobin 30.0 pg (26-34); Mean Corpuscular Volume 85.2 fl (80-100); Nucleated Red Blood Cells Absolute Auto 0.000 K/mm3 (0.0-0.012); Nucleated Red Blood Cells Perc 0.0 % (0.0-0.2); Platelet Count Result 222 k/mm3 (150-375); Red Blood Count 4.86 M/mm3 (4.2-5.4); White Blood Count 8.5 K/mm3 (4.5-10.0)
[2025-05-03 20:49] LABS: Alanine Aminotransferase 46 U/L (6-35); Albumin Level 4.4 g/dL (3.5-5.1); Alkaline Phosphatase 100 U/L (38-126); Anion Gap 9 mmol/L (4-12); Aspartate Amino Transferase 40 U/L (14-36); Bilirubin,Total 0.6 mg/dL (0.2-1.3); Blood Urea Nitrogen 10 mg/dL (7-17); Calcium 9.4 mg/dL (8.4-10.2); Carbon Dioxide 22 mmol/L (22-30); Chloride 104 mmol/L (98-107); Estimated CRCL calculation 96 ml/min; Estimated Glomerular Filt Rate > 60; Glucose 83 mg/dL (65-110); Potassium 3.2 mmol/L (3.4-5.0); Sodium 135 mmol/L (137-145); Total Protein 7.6 g/dL (6.3-8.2)
[2025-05-03] MEDS: ONDANSETRON INJ 4 MG/2 ML VIAL IV PUSH (21:17)
[2025-05-03] MEDS: MORPHINE SULFATE (*CRX) 4 MG/ML INJ IV PUSH (21:19)
[2025-05-03 21:47] LABS: Magnesium 1.7 mg/dL (1.6-2.3)
--- NOTE | 2025-05-03 21:55 | ED.ABDPAIN ---
HPI - Abdominal Pain General Chief Complaint: Back Pain/Injury Stated Complaint: right sided kidney stone. Nausea Time Seen by Provider: 05/03/25 20:18 Source: patient Mode of arrival: ambulatory Limitations: no limitations History of Present Illness HPI narrative: This is a 45-year-old female that presents to the emergency department for right flank pain. Worsening since yesterday. Reports longstanding history of kidney stones. Denies fevers, vomiting, dysuria. Related Data Home Medications ?Medication ?Instructions ?Recorded ?Confirmed ?Last Taken ?Type multivitamin 1 tablet PO DAILY 04/04/22 02/22/25 02/21/25 10:00 History nebivolol 10 mg tablet (Bystolic) 10 mg PO BID 10/21/24 05/03/25 05/03/25 History omeprazole 20 mg capsule,delayed 20 mg PO DAILY 11/23/24 02/22/25 02/20/25 22:00 History release tamsulosin 0.4 mg capsule 0.4 mg PO DAILY PRN urinary 11/26/24 02/22/25 02/19/25 22:00 History retention amlodipine 10 mg tablet 10 mg PO BID 02/22/25 05/03/25 05/02/25 History Allergies Allergy/AdvReac Type Severity Reaction Status Date / Time ketorolac (From Toradol) Allergy Headache,Rash, Verified 05/03/25 19:22 Swollen tongue tramadol AdvReac Mild VOMITING/HE Verified 05/03/25 19:22 ADACHE hydralazine AdvReac Headache Verified 05/03/25 19:22 Review of Systems Review of Systems: All systems reviewed & are unremarkable except as noted in HPI and below PMFSH Past Medical History Medical History Left ureteral stone Hypertension Gastroesophageal reflux disease Sleep paralysis, recurrent isolated Smoker Obesity Depression Multiple kidney stones Seasonal allergies Surgical History Surgical History H/O ureteroscopy 10/21/24 on the right due to proximal ureteral stone; Dr Gonzalez History of laparoscopic cholecystectomy on 04/25/23 PDC History of tubal ligation History of endometrial ablation (2009) History of hysterectomy (2015) History of open reduction and internal fixation (ORIF) procedure (2012) Left elbow. History of section 2000, 2001, 2009 Status post cystoscopy with ureteral stent placement Family History Family History Mother Diabetes mellitus Depression Alcoholism Father Hypertension Diabetes mellitus Sibling Congenital heart disease Son Asthma Grandparent Diabetes mellitus Cerebrovascular accident Social History Social History Social History: Surrogate medical decision maker: Bang Luke, spouse. Code status: Full code. Smoking packs per day: 0.5 Smoking cigarettes per day: 10.0 Years smoked: 32 Smoking pack-years: 16.00 Smoking status: Current every day smoker Tobacco type: cigarettes Second hand tobacco smoke exposure: Yes Alcohol intake: current Alcohol use details: Social alcohol use in moderation. Substance use: never Substance use type: does not use Do You Feel Safe in your Home?: Yes Lack of Transportation: No Lack of Food: Never True Current Housing: I Have Housing Concerned About Future Housing: No Difficulty Paying Gas/Electric Bills: No Difficulty Paying for Meds: No Currently Unemployed: No Education: Associate Degree Difficulty w/ Childcare or Family Care: No Living arrangements: with family Spiritual care concerns: No Exam Narrative: GENERAL: Well-appearing, well-nourished, and in no acute distress. HEAD: Normocephalic, atraumatic. EYES: EOMI. CHEST: Clear to auscultation. No respiratory distress. No wheezes rales or rhonchi HEART: Regular rate and rhythm. No murmur heard. Normal peripheral pulses. ABDOMEN: Soft, nontender, nondistended, normal active bowel sounds. EXTREMITIES: Normal range of motion. No edema. SKIN: Warm, dry, no rash. NEURO: No focal deficits. Alert and oriented x3. PSYCH: Normal mood and affect Course Vital Signs Vital signs: Vital Signs Temperature 98.0 F 05/03/25 19:16 Pulse Rate 98 05/03/25 19:16 Respiratory Rate 18 05/03/25 19:16 Blood Pressure 187/146 H 05/03/25 19:16 Pulse Oximetry 97 05/03/25 19:16 Oxygen Delivery Room Air 05/03/25 19:16 Temperature 97.6 F 05/03/25 20:15 Pulse Rate 81 05/04/25 01:12 Respiratory Rate 19 05/04/25 01:12 Blood Pressure 150/120 H 05/04/25 01:12 Pulse Oximetry 96 05/04/25 01:12 Oxygen Delivery Room Air 05/03/25 19:16 MDM - Abdominal Pain MDM Narrative Medical decision making narrative: Patient presents emergency department for right flank pain. She is afebrile and nontoxic appearing. Hypertensive upon arrival, this down trended with management of her pain. Cbc without leukocytosis. Metabolic panel with mild hypokalemia, this was replaced. Urine with 6-10 white blood cells, also squamous epithelial cells. This will be sent for culture, likely contaminated catch. CT abdomen pelvis without evidence of obstructing stone. Patient was updated on her workup and agrees with plan of care. She is to follow up with primary provider. She was given warnings to return to the ER Differential Diagnosis Differential diagnosis: Likely calculus of kidney and other (UTI) Lab Data Attestation: I reviewed the patient's lab results. 05/03/25 20:29 05/03/25 20:29 Labs: Lab Results 05/03/25 05/03/25 Range/Units 19:05 20:29 WBC 8.5 (4.5-10.0) K/mm3 RBC 4.86 (4.2-5.4) M/mm3 Hgb 14.6 (12.0-15.0) g/dL Hct 41.4 (37.0-47.0) % MCV 85.2 (80-100) fl MCH 30.0 (26-34) pg MCHC 35.3 (32-36) g/dl RDW 12.5 (11.5-14.5) % Plt Count 222 (150-375) k/mm3 MPV 9.7 (7.4-10.4) fl Immature Gran % (Auto) 0.2 (0-0.5) % Neut % (Auto) 68.8 (45.5-73.1) % Lymph % (Auto) 22.5 (18.3-44.2) % [place] % (Auto) 7.4 (2.6-8.5) % Eos % (Auto) 0.7 (0-4.4) % Baso % (Auto) 0.4 (0.2-1.2) % Lymph # (Auto) 1.91 (0.9-3.2) K/mm3 [place] # (Auto) 0.6 (0.1-0.6) K/mm3 Eos # (Auto) 0.1 (0-0.3) K/mm3 Baso # (Auto) 0.0 (0.0-0.1) K/mm3 Abs Immat Gran (auto) 0.02 (0.00-0.031) K/mm3 Absolute Neuts (auto) 5.8 (1.3-6.7) K/mm3 Absolute Nucleated RBC 0.000 (0.0-0.012) K/mm3 Nucleated RBC % 0.0 (0.0-0.2) % Sodium 135 L (137-145) mmol/L Potassium 3.2 L (3.4-5.0) mmol/L Chloride 104 (98-107) mmol/L Carbon Dioxide 22 (22-30) mmol/L Anion Gap 9 (4-12) mmol/L BUN 10 (7-17) mg/dL Creatinine 0.63 L (0.7-1.0) mg/dL Estim Creat Clear Calc 96 ml/min Estimated GFR > 60 (59 - ) Glucose 83 (65-110) mg/dL Calcium 9.4 (8.4-10.2) mg/dL Magnesium 1.7 (1.6-2.3) mg/dL Total Bilirubin 0.6 (0.2-1.3) mg/dL AST 40 H (14-36) U/L ALT 46 H (6-35) U/L Alkaline Phosphatase 100 (38-126) U/L Total Protein 7.6 (6.3-8.2) g/dL Albumin 4.4 (3.5-5.1) g/dL Urine Color Yellow (Yellow) Urine Appearance Cloudy H (Clear) Urine pH 6.0 (5.0-9.0) Ur Specific [place] 1.018 (1.001-1.035) Urine Protein Negative (Negative) mg/dL Urine Glucose (UA) Negative (Negative) mg/dL Urine Ketones Negative (Negative) mg/dL Ur Blood (Man) 2+ H (Negative) Urine Nitrate Negative (Negative) Urine Bilirubin Negative (Negative) Urine Urobilinogen 0.2 (<2.0) mg/dL Leukocyte Esterase Rfl Trace H (Negative) ALEKSANDRA/UL Urine RBC 21-50 H (0-2) /hpf Urine WBC 6-10 H (0-3) /hpf Ur Squamous Epith Cells Occasional (Few) /hpf Urine Bacteria 1+ H /hpf Urine Casts 3-5 Imaging Data Radiologist's impression: CT abdomen pelvis: Small nonobstructing right renal stone. No hydronephrosis or obstructing ureteral stone Critical Care Time Critical Care Time Critical Care Time: No Discharge Plan Discharge Clinical Impression: Right flank pain, Abnormal urinalysis, Hypokalemia Patient Disposition: Home Condition: Stable Instructions: Hypokalemia (ED), Flank Pain (ED) Additional Instructions: Return to the emergency department if you experience fever, abdominal pain with nausea and vomiting, pain or burning with urination, blood in the urine, or any other symptoms that are concerning to you. Follow up with your primary care doctor Patient Language: Greenlandic Prescriptions: No Action multivitamin Tablet 1 tablet PO DAILY ondansetron 4 mg tablet,disintegrating 4 mg PO Q8H Qty: 14 0RF nebivolol [Bystolic] 10 mg tablet 10 mg PO BID acetaminophen 500 mg capsule 1,000 mg PO Q6H PRN (Reason: pain) Qty: 30 0RF tamsulosin 0.4 mg capsule 0.4 mg PO DAILY PRN (Reason: urinary retention) Rx Instructions: kidney stones omeprazole 20 mg capsule,delayed release(DR/EC) 20 mg PO DAILY amlodipine 10 mg tablet 10 mg PO BID Rx Instructions: TAKE 1 TABLET BY MOUTH DAILY losartan 50 mg tablet See Rx Instructions .ROUTE .COMPLEX Qty: 180 0RF Dose Instruction: TAKE 1 TABLET BY MOUTH TWICE DAILY Rx Instructions: TAKE 1 TABLET BY MOUTH TWICE DAILY hydrochlorothiazide 25 mg tablet See Rx Instructions .ROUTE .COMPLEX Qty: 90 0RF Dose Instruction: TAKE 1 TABLET BY MOUTH EVERY MORNING Rx Instructions: TAKE 1 TABLET BY MOUTH EVERY MORNING Follow-up/Referrals: Lucas Carter, [Primary Care Provider, Internal Medicine]
[2025-05-04] MEDS: POTASSIUM CHLORIDE 20 MEQ ER TABLET 40 MEQ PO (01:09)
[2025-05-04] MEDS: MORPHINE SULFATE (*CRX) 4 MG/ML INJ IV PUSH (01:09)
[2025-05-04 01:12] VITALS: BP 150/120; PULSE 81; RESP 19; O2SAT 96
== END 2025-05-04 02:11 | disposition home or self-care (01) ==
PROVIDERS: Emergency Medicine; Emergency Provider Physician Assistant; PCP Internal Medicine
DX: R10.9 Unspecified abdominal pain (principal); E87.6 Hypokalemia; R82.998 Other abnormal findings in urine; I10 Essential (primary) hypertension; E66.9 Obesity, unspecified; Z68.31 Body mass index [BMI] 31.0-31.9, adult; G47.53 Recurrent isolated sleep paralysis; K21.9 Gastro-esophageal reflux disease without esophagitis; F17.210 Nicotine dependence, cigarettes, uncomplicated; Z87.442 Personal history of urinary calculi; Z90.710 Acquired absence of both cervix and uterus; Z90.49 Acquired absence of other specified parts of digestive tract; Z79.899 Other long term (current) 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
CPT/HCPCS: 36415; 74176; 80053; 81001; 83735; 85025; 87086; 96374; 96375; 99284; A9270; J2270; J2405

== ENCOUNTER 2025-06-26 01:54 | Emergency (ER) | payer OTHER, SELFPAY ==
[2025-06-26] VITALS (8 sets, daily range): BP systolic 220–240; BP diastolic 108–125; PULSE 60–73; RESP 13–19; TEMP 36.7; O2SAT 96–100
--- NOTE | ~2025-06-26 | CT_ITS ---
CT ABDOMEN AND PELVIS WITHOUT CONTRAST Clinical History: R flank pain, hx of stones Comparison: 05/03/2025 Technique: Unenhanced axial images lung bases to symphysis pubis Coronal, sagittal reformats CT images acquired with automatic exposure control for dose reduction DLP: 225 mGy-cm Findings: Without intravenous contrast, sensitivity for detecting visceral parenchymal abnormalities decreased. Lung bases: Clear. Visualized heart and pericardium: Unremarkable. Liver: Enlarged. Steatosis. Gallbladder: Removed. Spleen: Unremarkable. Pancreas: Unremarkable. Adrenal glands: Unremarkable. Kidneys: Right kidney- Hydronephrosis. No renal stones. 4 mm stone distal ureter. Left kidney- No hydronephrosis. No renal stones. Distal esophagus/stomach: Unremarkable. Small bowel loops: Normal caliber and wall thickness. Colon: Diverticula. Normal caliber and wall thickness. Normal RLQ appendix. Nodes: No enlarged nodes. Peritoneum: No ascites. No free intraperitoneal air. Urinary bladder: Unremarkable. Uterus: Removed. Adnexa: No masses. Bones: No acute bony abnormality. Soft tissues: Unremarkable. Unopacified abdominal aorta: No aneurysmal dilatation. IMPRESSION: 1. Hydronephrosis right kidney due to 4 mm distal ureteral stone. Reviewed, dictated and finalized at location R. ITY DIRECTOR
[2025-06-26] MEDS: ACETAMINOPHEN 500 MG TABLET 1000 MG PO (02:28)
[2025-06-26 02:32] LABS: Hematocrit 41.9 % (37.0-47.0); Hemoglobin 14.5 g/dL (12.0-15.0); Immature Granulocyte Percent A 0.3 % (0-0.5); Lymphocytes Absolute Auto 2.33 K/mm3 (0.9-3.2); Mean Corpuscular HGB Conc 34.6 g/dl (32-36); Mean Corpuscular Hemoglobin 30.1 pg (26-34); Mean Corpuscular Volume 86.9 fl (80-100); Nucleated Red Blood Cells Absolute Auto 0.000 K/mm3 (0.0-0.012); Nucleated Red Blood Cells Perc 0.0 % (0.0-0.2); Platelet Count Result 238 k/mm3 (150-375); Red Blood Count 4.82 M/mm3 (4.2-5.4); White Blood Count 8.0 K/mm3 (4.5-10.0)
--- NOTE | 2025-06-26 02:39 | ED_ITS ---
HPI - General Adult General Chief complaint: Abdominal Pain Stated complaint: r sided kidney stone- hx of kidney stones Time Seen by Provider: 06/26/25 02:11 History of Present Illness HPI narrative: This is a 45-year-old female is well known to our emergency department for flank pain and elevated blood pressures. She is presenting to our ED today with right-sided flank pain. She says she has been passing trying to pass a kidney stone for the last 7 days. She has a sharp pain in her right flank radiating into her abdomen. She says her urine is dark. She does not have any fevers. She does not have dysuria urgency or frequency. Patient has multiple visits to our emergency department with identical complaints with no objective evidence of kidney stones. Additionally patient's blood pressure is elevated today. No chest pain, difficulty breathing, or stroke symptoms. Related Data Home Medications ?Medication ?Instructions ?Recorded ?Confirmed ?Last Taken ?Type multivitamin 1 tablet PO DAILY 04/04/22 0 02/22/25 02/21/25 10:00 History nebivolol 10 mg tablet (Bystolic) 10 mg PO BID 5 05/03/25 05/03/25 History omeprazole 20 mg capsule,delayed 20 mg PO DAILY 02/22/25 02/20/25 22:00 History release tamsulosin 0.4 mg capsule 0.4 mg PO DAILY PRN urinary 11/26/24 02/22/25 02/19/25 22:00 History retention amlodipine 10 mg tablet 10 mg PO BID 02/22/2505/02/25 History Allergies Allergy/AdvReac Type Severity Reaction Status Date / Time ketorolac (From Toradol) Allergy Headache,Rash, Verified 06/26/25 02:19 Swollen tongue tramadol AdvReac Mild VOMITING/HE Verified 06/26/25 02:19 ADACHE hydralazine AdvReac Headache Verified 06/26/25 02:19 PMFSH Past Medical History Medical History Left ureteral stone Hypertension Gastroesophageal reflux disease Sleep paralysis, recurrent isolated Smoker Obesity Depression Multiple kidney stones Seasonal allergies Surgical History Surgical History H/O ureteroscopy 10/21/24 on the right due to proximal ureteral stone; Dr Gonzalez History of laparoscopic cholecystectomy on 04/25/23 PDC History of tubal ligation History of endometrial ablation (2009) History of hysterectomy (2015) History of open reduction and internal fixation (ORIF) procedure (2012) Left elbow. History of section 2000, 2001, 2009 Status post cystoscopy with ureteral stent placement Family History Family History Mother Diabetes mellitus Depression Alcoholism Father Hypertension Diabetes mellitus Sibling Congenital heart disease Son Asthma Grandparent Diabetes mellitus Cerebrovascular accident Social History Social History Social History: Surrogate medical decision maker: Bang Ti, spouse. Code status: Full code. Smoking packs per day: 0.5 Smoking cigarettes per day: 10.0 Years smoked: 32 Smoking pack-years: 16.00 Smoking status: Current every day smoker Tobacco type: cigarettes Second hand tobacco smoke exposure: Yes Alcohol intake: current Alcohol use details: Social alcohol use in moderation. Substance use: never Substance use type: does not use Do You Feel Safe in your Home?: Yes Lack of Transportation: No Lack of Food: Never True Current Housing: I Have Housing Concerned About Future Housing: No Difficulty Paying Gas/Electric Bills: No Difficulty Paying for Meds: No Currently Unemployed: No Education: Associate Degree Difficulty w/ Childcare or Family Care: No Living arrangements: with family Spiritual care concerns: No Exam 2 Narrative: APPEARANCE: No apparent distress. Well appearing overall. Elevated blood pressure Head: atraumatic. EYES: EOMI, NOSE: Atraumatic NECK: Trachea midline RESPIRATORY: No increased rate of breathing clear to auscultation CARDIOVASCULAR: RRR, no peripheral edema ABDOMINAL: Non-distended soft nontender, no CVA tenderness MUSCULOSKELETAl: No obvious deformities NEURO: Alert. Moving 4/4 extremities SKIN:: Warm, dry. Normal color PSYCHIATRIC: Normal affect Course Vital Signs Vital signs: Vital Signs Temperature 98.1 F 06/26/25 02:04 Pulse Rate 72 06/26/25 02:04 Respiratory Rate 19 06/26/25 02:04 Blood Pressure 232/108 H 06/26/25 02:04 Pulse Oximetry 98 06/26/25 02:04 Oxygen Delivery Room Air 06/26/25 02:04 Temperature 98.1 F 06/26/25 02:04 Pulse Rate 70 06/26/25 02:29 Respiratory Rate 18 06/26/25 02:29 Blood Pressure 232/108 H 06/26/25 02:29 Pulse Oximetry 98 06/26/25 02:29 Oxygen Delivery Room Air 06/26/25 02:04 Medical Decision Making MDM Narrative Medical decision making narrative: -Course: 45-year-old female is well known to our emergency department for flank pain and elevated blood pressures. Regards to her flank pain, we will obtain a CT abdomen pelvis to look for kidney stones. She will receive Tylenol for pain control until a stone was confirmed. No opiate pain medication until then. CT abdomen pelvis showed a 3-4 mm stone in the right distal ureter. Patient is treated with Dilaudid and Motrin. Urine with greater than 100 red blood cells, 6-10 white blood cells and +1 leuk esterase. No dysuria urgency or frequency. No fevers. Given 1 dose of ceftriaxone here and will be discharged on cefdinir. Patient will be discharged with Flomax, Zofran and pain medication. She has follow-up with her urologist Dr. Gonzalez. The patient has chronically elevated blood pressures. She has been admitted to our hospital multiple times for this in the past and once she takes her p.o. home regimen they normalize. I suspect she is not compliant. Patient is not symptomatic from her elevated blood pressure. Lowering her BP in the ED does not help patient and can possibly cause harm if she is not taking her medications at home. This was discussed with the patient she is agreeable with not addressing her blood pressure today. She has been encouraged to take her blood pressure medications as directed follow-up with your primary care physician. -DDX includes but is not limited to: drug-seeking /malingering/secondary gain, kidney stones, renal colic, UTI/pyelo /appendicitis /gallbladder disease -Co-morbidities complicating care: chronic flank pain, hypertension -External Chart Review: review of numerous ER notes for identical presentation. Review of [facility] ER notes -Independent interpretation of studies: labs and imaging reviewed Vital Signs Vital Signs: Vital Signs Temperature 98.1 F 06/26/25 02:04 Pulse Rate 72 06/26/25 02:04 Respiratory Rate 19 06/26/25 02:04 Blood Pressure 232/108 H 06/26/25 02:04 Pulse Oximetry 98 06/26/25 02:04 Oxygen Delivery Room Air 06/26/25 02:04 Temperature 98.1 F 06/26/25 02:04 Pulse Rate 70 06/26/25 02:29 Respiratory Rate 18 06/26/25 02:29 Blood Pressure 232/108 H 06/26/25 02:29 Pulse Oximetry 98 06/26/25 02:29 Oxygen Delivery Room Air 06/26/25 02:04 Lab Data 06/26/25 02:20 06/26/25 02:20 Labs: Lab Results 06/26/25 Range/Units 02:20 WBC 8.0 (4.5-10.0) K/mm3 RBC 4.82 (4.2-5.4) M/mm3 Hgb 14.5 (12.0-15.0) g/dL Hct 41.9 (37.0-47.0) % MCV 86.9 (80-100) fl MCH 30.1 (26-34) pg MCHC 34.6 (32-36) g/dl RDW 12.5 (11.5-14.5) % Plt Count 238 (150-375) k/mm3 MPV 9.4 (7.4-10.4) fl Immature Gran % (Auto) 0.3 (0-0.5) % Neut % (Auto) 60.7 (45.5-73.1) % Lymph % (Auto) 29.3 (18.3-44.2) % [place] % (Auto) 7.7 (2.6-8.5) % Eos % (Auto) 1.6 (0-4.4) % Baso % (Auto) 0.4 (0.2-1.2) % Lymph # (Auto) 2.33 (0.9-3.2) K/mm3 [place] # (Auto) 0.6 (0.1-0.6) K/mm3 Eos # (Auto) 0.1 (0-0.3) K/mm3 Baso # (Auto) 0.0 (0.0-0.1) K/mm3 Abs Immat Gran (auto) 0.02 (0.00-0.031) K/mm3 Absolute Neuts (auto) 4.8 (1.3-6.7) K/mm3 Absolute Nucleated RBC 0.000 (0.0-0.012) K/mm3 Nucleated RBC % 0.0 (0.0-0.2) % Sodium 136 L (137-145) mmol/L Potassium 3.3 L (3.4-5.0) mmol/L Chloride 105 (98-107) mmol/L Carbon Dioxide 22 (22-30) mmol/L Anion Gap 9 (4-12) mmol/L BUN 12 (7-17) mg/dL Creatinine 0.63 L (0.7-1.0) mg/dL Estim Creat Clear Calc 99 ml/min Estimated GFR > 60 (59 - ) Glucose 91 (65-110) mg/dL Calcium 9.2 (8.4-10.2) mg/dL Total Bilirubin 0.8 (0.2-1.3) mg/dL AST 42 H (14-36) U/L ALT 44 H (6-35) U/L Alkaline Phosphatase 91 (38-126) U/L Total Protein 8.0 (6.3-8.2) g/dL Albumin 4.7 (3.5-5.1) g/dL Lipase 77 (23-300) U/L Urine Color Yellow (Yellow) Urine Appearance Cloudy H (Clear) Urine pH 6.0 (5.0-9.0) Ur Specific [place] 1.020 (1.001-1.035) Urine Protein 1+ H (Negative) mg/dL Urine Glucose (UA) Negative (Negative) mg/dL Urine Ketones Negative (Negative) mg/dL Ur Blood (Man) 3+ H (Negative) Urine Nitrate Negative (Negative) Urine Bilirubin Negative (Negative) Urine Urobilinogen 1.0 (<2.0) mg/dL Leukocyte Esterase Rfl 1+ H (Negative) ALEKSANDRA/UL Urine RBC >100 H (0-2) /hpf Urine WBC 6-10 H (0-3) /hpf Ur Squamous Epith Cells None seen (Few) /hpf Urine Bacteria Rare /hpf Urine Casts 0-2 Urine Opiates Screen Positive A (Negative) Urine Methadone Screen Negative (Negative) Ur Barbiturates Screen Negative (Negative) Ur Phencyclidine Scrn Negative (Negative) Ur Amphetamine Screen Negative (Negative) U Benzodiazepines Scrn Negative (Negative) Urine Cocaine Screen Negative (Negative) U Cannabinoids Screen Negative (Negative) Discharge Plan Discharge Clinical Impression: Kidney stone, Asymptomatic hypertension Patient Disposition: Home Condition: Stable Instructions: Antibiotic Form, Kidney Stones (ED), Hypertension (ED) Additional Instructions: You were seen in the emergency department for a kidney stone. Please use Motrin/Tylenol for pain. Use oxycodone for breakthrough pain. Take Flomax to help pass the stone. Complete a course of cefdinir. Use Zofran for nausea. Please follow-up with your Urologist for further management. Please return if you develop severe pain, fevers or intractable nausea and vomiting. Your blood pressures were elevated again today. Please resume taking your home blood pressure medications as directed. Please follow-up with your primary care physician for further management. If you develop chest pain difficulty breathing or weakness to any extremity please return to ED for re-evaluation. Patient Language: Ukrainian Prescriptions: New acetaminophen 500 mg tablet 1,000 mg PO TID PRN (Reason: carmen) 7 Days Qty: 42 0RF ibuprofen 600 mg tablet 600 mg PO TID 7 Days Qty: 42 0RF ondansetron 4 mg tablet,disintegrating 4 mg PO Q8H PRN (Reason: nausea and vomiting) Qty: 30 0RF oxycodone 5 mg tablet 5 mg PO Q4H PRN (Reason: pain) Qty: 14 0RF tamsulosin [Flomax] 0.4 mg capsule 0.4 mg PO DAILY Qty: 30 0RF cefdinir 300 mg capsule 300 mg PO Q12H Qty: 14 0RF No Action multivitamin Tablet 1 tablet PO DAILY ondansetron 4 mg tablet,disintegrating 4 mg PO Q8H Qty: 14 0RF nebivolol [Bystolic] 10 mg tablet 10 mg PO BID acetaminophen 500 mg capsule 1,000 mg PO Q6H PRN (Reason: pain) Qty: 30 0RF tamsulosin 0.4 mg capsule 0.4 mg PO DAILY PRN (Reason: urinary retention) Rx Instructions: kidney stones omeprazole 20 mg capsule,delayed release(DR/EC) 20 mg PO DAILY amlodipine 10 mg tablet 10 mg PO BID Rx Instructions: TAKE 1 TABLET BY MOUTH DAILY losartan 50 mg tablet See Rx Instructions .ROUTE .COMPLEX Qty: 180 0RF Dose Instruction: TAKE 1 TABLET BY MOUTH TWICE DAILY Rx Instructions: TAKE 1 TABLET BY MOUTH TWICE DAILY hydrochlorothiazide 25 mg tablet See Rx Instructions .ROUTE .COMPLEX Qty: 90 0RF Dose Instruction: TAKE 1 TABLET BY MOUTH EVERY MORNING Rx Instructions: TAKE 1 TABLET BY MOUTH EVERY MORNING Follow-up/Referrals: Maximino Gonzalez MD [Physician, Urology] - 1 Week Clinical Impression: Kidney stone Lucas Carter DO [Physician, Internal Medicine]
[2025-06-26 02:42] LABS: Alanine Aminotransferase 44 U/L (6-35); Albumin Level 4.7 g/dL (3.5-5.1); Alkaline Phosphatase 91 U/L (38-126); Anion Gap 9 mmol/L (4-12); Aspartate Amino Transferase 42 U/L (14-36); Bilirubin,Total 0.8 mg/dL (0.2-1.3); Blood Urea Nitrogen 12 mg/dL (7-17); Calcium 9.2 mg/dL (8.4-10.2); Carbon Dioxide 22 mmol/L (22-30); Chloride 105 mmol/L (98-107); Estimated CRCL calculation 99 ml/min; Estimated Glomerular Filt Rate > 60; Glucose 91 mg/dL (65-110); Lipase 77 U/L (23-300); Potassium 3.3 mmol/L (3.4-5.0); Sodium 136 mmol/L (137-145); Total Protein 8.0 g/dL (6.3-8.2)
--- OUTSIDE RECORDS SUMMARY | 2025-06-26 02:45 | XMS_ITS | Clinical Summary ---
Author Organization [facility] al Address [address] [place] [address] Care Team Providers Care Kitchen Porter Name Role Phone Lucas Carter DO Primary Care Provider [phone] Allergies Active Allergy Reactions Criticality Noted Date Comments Hydralazine Headache,Vomiting Low 01/21/2024 Ketorolac Hives,Itching Medium 10/17/2017 Tramadol Hives,Urticaria Medium 08/27/2016 Medications omeprazole (PriLOSEC) 20 mg capsuleIndications :Treatment of Non-Bleeding Gastric Disorder Take 1 capsule (20 mg total) by mouth guide escort before breakfast Active MULTIVIT-MINERALS/ FERROUS FUM (MULTI VITAMIN ORAL)Indications:h ealth Take 1 tablet by mouth guide escort before breakfast Active ondansetron ODT (ZOFRAN-ODT) 4 [...] 1 tablet (25 mg total) by mouth guide escort before breakfast Active nebivoloL (BYSTOLIC) 10 mg tabletIndications: hypertension Take 1 tablet (10 mg total) by mouth nightly 01/03/20 24 Active amLODIPine (NORVASC) 10 mg tabletIndications: hypertension Take 1 tablet (10 mg total) by mouth 2 (two) times a day 03/03/20 24 Active ibuprofen 200 mg tab/cap Take 2 tablet/capsule (400 mg total) by mouth every 6 (six) hours as needed for pain Active cyclobenzaprine (FLEXERIL) 10 mg tablet TAKE 1 TABLET(10 MG) BY MOUTH THREE TIMES DAILY NEEDED FOR MUSCLE SPASMS 90 tablet 1 11/24/19 25 Active Additional Information Patient not taking.Reported on 03/15/2025 meloxicam (MOBIC) 15 mg tablet TAKE 1 TABLET(15 MG) BY MOUTH DAILY 30 tablet 11/24/19 25 Active meloxicam (MOBIC) 7.5 mg tablet Take 1 tablet (7.5 mg total) by mouth daily 90 tablet 3 03/15/20 25 026 Active meloxicam (MOBIC) 7.5 mg tablet Take 1 tablet (7.5 mg total) by mouth 2 (two) times a day 40 tablet 03/15/20 25 Active lidocaine (LIDODERM) 5 % Place 1 patch on the skin daily for 12 hours Remove & discard patch within 12 hours or as directed by MD. 30 patch 3 03/15/20 25 Active methocarbamoL (ROBAXIN) 500 mg tablet Take 1 tablet (500 mg total) by mouth 4 (four) times a day 360 tablet 3 03/15/20 25 Active acetaminophen (TYLENOL) 500 mg tablet Take 1-2 tablets (500-1,000 mg total) by mouth every 6 (six) hours as needed for pain (1 tablet for mild to moderate pain. 2 tablets for severe pain) 30 tablet 04/13/20 25 Active pregabalin (LYRICA) 150 mg capsule TAKE 1 CAPSULE BY MOUTH NIGHTLY 90 capsule 05/24/20 25 Active Active Problems Problem Noted Date [...] urination 01/06/2016 Pain in female pelvis 01/06/2016 Overview (03/16/2025): - 1 year of acute on chronic LLQ pain exacerbated with sudden movement. Multiple ED visits with CIGAR HEAD PUNCHER consults for r/o torsion. Bedside TVUS with few, small simple vs hemorrhagic cyst and no evidence of torsion. - CT A/P 01/27/25 with Colonic diverticulosis without diverticulitis...follicles within the left ovary A/P: - Overall clinical picture more consistent with MSK etiology given response to topical treatments. Rx sent for meloxicam, robaxin, and lidocaine patches. Possible GI role given CT findings of diverticular disease - Will continue CIGAR HEAD PUNCHER etiology work up with formal pelvic US. Pending US findings, could be a candidate for ovulation suppression with progesterone only method as bridge until menopause. Will collect FSH and estradiol today to assess heike-menopausal status. - Given medical co morbidities (particularly poorly controlled hypertension), the patient is not an surgical candidate at this time. Risk of surgery at this time do not necessarily outweigh the benefits given etiology of pain remains unclear and no guarantee an oophorectomy would resolve her symptoms. Patient will continue to work on smoking cessation and BP control with he PCP in case surgery is indicated at a later time. Fracture of head of radius 08/31/2014 Encounters Date Type Department Care Team Description 06/11/2025 Telephone Obstetrics and Gynecology Clinic [address] [facility] 3rd Floor [address] [place] [address] Juliet Mace 04/13/2025 12:05 AM CDT - 04/13/2025 7:44 AM CDT Emergency [facility] Emergency Department [address] [place] [id number] Brice Oconnell MD Smith, Miya Alys, MD Acute UTI (Primary Dx); Kidney stone Discharge Disposition: Discharge to home or self [...] Israel Maternal Grandfather Beka Sr. Maternal Grandmother Sandy Mother Melelizabethe Paternal Grandfather Dusty Sister Sarai Social History Tobacco Use Types Packs/Day Years Used Date Smoking Tobacco: Every Day Cigarettes 0.8 33.6 Started: 11/11/1991 Smokeless Tobacco: Never Tobacco Cessation:Ready [...] more drinks on one occasion? Never 06/23/2024 Hunger Vital Sign Answer Date Recorded Within the past 12 months, y ou worried that your food would run out before you got the money to buy more. Never true 03/15/20 25 Within the past 12 months, t he food you bought just didn't last and you didn't have money to get more. Never true 03/15/2025 Personal Safety Answer Date Recorded Have you ever been in or are you currently in a harmful physical or emotional relationship or is someone making you feel afraid or unsafe? 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66 04/12/2025 7:54 PM CDT Plan of Treatment Health Maintenance [...] on stairs Contact your local community or [facility] for information on exercise, fall prevention programs, or options for improving home safety. Medical Devices Implanted Type Area Development Architect Device Identifier Shelf Expiration Date Model / Serial / Lot Screw Left: Elbow Procedures Procedure Name Priority Date/Time Associated Diagnosis Comments CT ABDOMEN PELVIS WO CONTRAST ED 04/13/2025 5:02 AM CDT POCT CREATININE - DEVICE Routine 04/13/2025 12:54 AM CDT EGFR STAT 04/13/2025 12:46 AM CDT URINALYSIS, MICROSCOPIC ONLY STAT 04/13/2025 12:46 AM CDT DIFFERENTIAL AUTO STAT 04/13/2025 12: 46 AM CDT TYPE AND SCREEN STAT 04/13/2025 12:46 AM CDT LACTATE STAT 04/13/2025 12:46 AM CDT COMPREHENSIVE METABOLIC PANEL STAT 04/13/2025 12:46 AM CDT CBC WITH AUTO DIFFERENTIAL STAT 04/13/2025 12:46 AM CDT URINE CULTURE STAT 04/13/2025 12:46 AM CDT URINALYSIS AND REFLEX TO MICROSCOPIC AND CULTURE STAT 04/13/2025 12:46 AM CDT from Last 3 Months Results * CT Abdomen Pelvis WO Contrast (04/13/2025 5:02 AM CDT) Anatomical Region Laterality Modality Body N/A Computed Tomogra phy 04/13/2025 6:17 AM CDT Impressions 04/13/2025 6:44 AM CDT 1. Nonobstructing nephrolithiasis in the superior pole of the right kidney. No hydronephrosis. 2. Otherwise, no acute findings in the abdomen or pelvis. Dictated by: Adrienne Danielson M.D. The radiology attending physician has personally reviewed this study, and had reviewed and/or edited this written report and agrees with it. Electronically signed by: Christina Ta M.D. Narrative 04/13/2025 6:44 AM CDT EXAMINATION: CT ABDOMEN PELVIS WO CONTRAST HISTORY: Right lower quadrant abdominal pain. Kidney stone suspected. TECHNIQUE: Transaxial computed tomographic images of the abdomen and pelvis were obtained without intravenous contrast according to the standard protocol. COMPARISON: CT dated 01/27/2025 FINDINGS: The lung bases are clear. No pleural effusion. Heart size is normal. No pericardial effusion. Hypoattenuating appearance of the hepatic parenchyma, which may reflect hepatic steatosis. Noncontrast appearance of the liver is otherwise unremarkable. Noncontrast appearance of the spleen, pancreas, and adrenal glands is normal. The gallbladder is surgically absent. There is a nonobstructing 4 mm calculus in the superior pole of the right kidney. No additional calculi are identified. Noncontrast appearance of the kidneys is otherwise unremarkable. No hydronephrosis. The urinary bladder is nondistended. Small bowel and colon are normal in caliber without evidence of obstruction or wall thickening. No ascites or pneumoperitoneum. The appendix is normal. Normal caliber abdominal aorta. No retroperitoneal or pelvic lymphadenopathy. Multilevel degenerative changes of the thoracolumbar spine. Procedure Note Christina Ta MD - 04/13/2025 EXAMINATION: CT ABDOMEN PELVIS WO CONTRAST HISTORY: Right lower quadrant abdominal pain. Kidney stone suspected. TECHNIQUE: Transaxial computed tomographic images of the abdomen and pelvis were obtained without intravenous contrast according to the standard protocol. COMPARISON: CT dated 01/27/2025 FINDINGS: The lung bases are clear. No pleural effusion. Heart size is normal. No pericardial effusion. Hypoattenuating appearance of the hepatic parenchyma, which may reflect hepatic steatosis. Noncontrast appearance of the liver is otherwise unremarkable. Noncontrast appearance of the spleen, pancreas, and adrenal glands is normal. The gallbladder is surgically absent. There is a nonobstructing 4 mm calculus in the superior pole of the right kidney. No additional calculi are identified. Noncontrast appearance of the kidneys is otherwise unremarkable. No hydronephrosis. The urinary bladder is nondistended. Small bowel and colon are normal in caliber without evidence of obstruction or wall thickening. No ascites or pneumoperitoneum. The appendix is normal. Normal caliber abdominal aorta. No retroperitoneal or pelvic lymphadenopathy. Multilevel degenerative changes of the thoracolumbar spine. IMPRESSION: 1. Nonobstructing nephrolithiasis in the superior pole of the right kidney. No hydronephrosis. 2. Otherwise, no acute findings in the abdomen or pelvis. Dictated by: Adrienne Danielson M.D. The radiology attending physician has personally reviewed this study, and had reviewed and/or edited this written report and agrees with it. Electronically signed by: Christina Ta M.D. us Helen Chanel MD IM CT PROCEDURES Final R esult * POCT creatinine (04/13/2025 12:54 AM CDT) Creatinine POC 0.8 0.6 - 1.1 mg/dL Blood 04/13/2025 12:5 4 AM CDT 04/13/2025 12:54 AM CDT us Notinfile Unknown LAB POCT ORDERABLES - DEVICE F inal Result [facility] [place] [address] * Lactate (04/13/2025 12:46 AM CDT) Lactate 1.0 0.7 - 2.0 mmol/L Blood 04/13/2025 12:4 6 AM CDT 04/13/2025 12:58 AM CDT Helen Chanel MD LAB BLOOD ORDERABLES Sandra l Result [facility] [employer] [place] [address] * eGFR (04/13/2025 12:46 AM CDT) eGFR >90 >=60 mL/min/1. 73 [...] interpretive data was last reviewed 2021. Blood 04/13/2025 12:4 6 AM CDT 04/13/2025 12:58 AM CDT Helen Chanel MD LAB BLOOD ORDERABLES Sandra l Result [facility] [place] [address] * Differential, auto (04/13/2025 12:46 AM CDT) Neutrophil abs 3.40 1.50 - 6.50 K/cumm Imm gran abs 0.01 0.00 - 0.10 K/cumm [facility] Lymphocyte abs 2.73 0.80 - 3.30 K/cumm [facility] Monocyte abs 0.56 0.20 - 0.80 K/cumm [facility] Eosinophil abs 0.10 0.00 - 0.50 K/cumm [facility] Basophil abs 0.04 0.00 - 0.10 K/cumm [facility] Neutrophil pct 49.7 % [facility] Comment: Interpretive Data Percent cell count reference ranges are not reported, since discordance with absolute values may lead to misinterpretation of CBC data. Current Interpretive Data was last revised on 2017. Imm gran pct 0.1 % [facility] Comment: Interpretive Data Percent cell count reference ranges are not reported, since discordance with absolute values may lead to misinterpretation of CBC data. Current Interpretive Data was last revised on 2017. Lymphocyte pct 39.9 % [facility] Comment: Interpretive Data Percent cell count reference ranges are not reported, since discordance with absolute values may lead to misinterpretation of CBC data. Current Interpretive Data was last revised on 2017. Monocyte pct 8.2 % [facility] Comment: Interpretive Data Percent cell count reference ranges are not reported, since discordance with absolute values may lead to misinterpretation of CBC data. Current Interpretive Data was last revised on 2017. Eosinophil pct 1.5 % [facility] Comment: Interpretive Data Percent cell count reference ranges are not reported, since discordance with absolute values may lead to misinterpretation of CBC data. Current Interpretive Data was last revised on 2017. Basophil pct 0.6 % [facility] Comment: Interpretive Data Percent cell count reference ranges are not reported, since discordance with absolute values may lead to misinterpretation of CBC data. Current Interpretive Data was last revised on 2017. Blood 04/13/2025 12:4 6 AM CDT 04/13/2025 12:58 AM CDT Helen Chanel MD LAB BLOOD ORDERABLES Sandra l Result Performing Organization Address City/[facility]/ZIP Co de Phone Number [facility] Department [place] [address] * (ABNORMAL) Urinalysis reflex to microscopic and culture Urine (04/13/2025 12:46 AM CDT) Color, ur Yellow Yellow Clarity, ur Clear Clear [facility] Specific gravity, ur 1.035(H) 1.003 - 1.030 [facility] pH, urine 6.0 [facility] Comment: Interpretive Data U rine pH [...] on 2017 Protein, ur ql 1+(A) Negative [facility] Glucose, ur ql Negative Negative [facility] Ketones, ur Negative Negative [facility] Bilirubin, ur Negative Negative [facility] Blood, ur 1+(A) Negative [facility] Urobilinogen, ur <2.0 <2.0 mg/dL [facility] Nitrite, ur Negative Negative [facility] Leukocyte esterase, ur Trace(A) Negative [facility] UA reflex comment Reflex to microscopic UA will be performed. [facility] Urine 04/13/2025 12:4 6 AM CDT 04/13/2025 12:52 AM CDT Helen Chanel MD LAB MICROBIOLOGY - GENERA L ORDERABLES Final Result Performing Organization Address [facility] Co de Phone Number [facility] Department [place] [address] * CBC with auto differential (04/13/2025 12:46 AM CDT) Pathologist [facility] WBC 6.84 3.80 - 9.90 K/cumm Hgb 15.1 11.9 - 15.5 g/dL [facility] Hct 43.6 35.6 - 45.5 % [facility] Plt 244 150 - 400 K/cumm [facility] MPV 9.7 9.1 - 12.3 fL [facility] RBC 5.10 3.90 - 5.20 M/cumm [facility] MCV 85.5 81.3 - 96.4 fL [facility] MCH 29.6 27.1 - 33.3 pg [facility] MCHC 34.6 32.3 - 35.7 g/dL [facility] RDW CV 12.2 11.1 - 14.9 % [facility] RDW SD 38.2 35.7 - 48.1 fL [facility] NRBC abs 0.00 0.00 - 0.01 K/cumm [facility] Blood 04/13/2025 12:4 6 AM CDT 04/13/2025 12:58 AM CDT Helen Chanel MD LAB BLOOD ORDERABLES Sandra l Result [facility] Department [place] [address] * (ABNORMAL) Urinalysis, microscopic only (04/13/2025 12:46 AM CDT) Pathologist [facility] WBC, ur 11-20(A) 0 - 5 /HPF RBC, ur 11-20(A) 0 - 2 /HPF [facility] Epithelial cells, squamous, ur 1-5 0 - 5 /HPF [facility] Bacteria, ur Trace(A) [facility] Mucous, ur Present(A) [facility] Calcium oxalate crystals, ur Trace(A) [facility] Culture Reflex Comment Reflex to urine culture will be performed. [facility] Urine 04/13/2025 12:4 6 AM CDT 04/13/2025 12:52 AM CDT Helen Chanel MD LAB URINE ORDERABLES Sandra l Result Performing Organization Address City/[facility]/ZIP Co de Phone Number [facility] Department [place] [address] * Type and screen (04/13/2025 12:46 AM CDT) Pathologist [facility] Jorge, indirect Negative ABO Rh B Positive [facility] Blood 04/13/2025 12:4 6 AM CDT 04/13/2025 12:55 AM CDT Narrative [facility] - 04/13/2025 1:41 AM CDT Has the patient had Daratumumab or Isatuximab in the past 6 months?->Unknown Helen Chanel MD LAB BLOOD BANK TEST ORDER ROLANDA Final Result Performing Organization Address [facility] Co de Phone Number [facility] [place] [address] * Urine culture Urine (04/13/2025 12:46 AM CDT) [facility] Report Final Report: Less than 100,000 colonies/mL (clinically insignificant growth based on current clinical standards) Organism (CLINICALLY INSIGNIFICANT GROWTH [facility] Urine 04/13/2025 12:4 6 AM CDT 04/13/2025 1:41 AM CDT Narrative [facility] - 04/14/2025 10:43 AM CDT Urine culture reflexed based upon urinalysis results. Testing performed by [facility] ([phone]) Helen Chanel MD LAB MICROBIOLOGY - GENERA L ORDERABLES Final Result Performing Organization Address City/[facility]/ZIP Co de Phone Number [facility] [place] [address] * (ABNORMAL) Comprehensive metabolic panel (04/13/2025 12:46 AM CDT) Sodium 140 135 - 145 mmol/L Potassium, pl 3.4 3.3 - 4.9 mmol/L [facility] Comment:Hemolyzed; Potassium value may be falsely elevated by as much as 0.3-0.5 mmol/L. Suggest redraw and reanalysis. Chloride 106 97 - 110 mmol/L [facility] CO2 22 22 - 32 mmol/L [facility] Anion gap 12 2 - 15 mmol/L [facility] BUN 13 6 - 25 mg/dL [facility] Creatinine 0.79 0.60 - 1.10 mg/dL [facility] Glucose 86 70 - 199 mg/dL [facility] Comment: Interpretive Data Fasting glucose >/= [...] interpretive data was last revised 2022. Calcium 9.2 8.5 - 10.3 mg/dL [facility] Bilirubin, total 0.3 0.1 - 1.2 mg/dL [facility] Protein, pl 7.8 6.5 - 8.5 g/dL [facility] Albumin 4.4 3.5 - 5.0 g/dL [facility] Alk phos 94 40 - 130 Units/L [facility] ALT 56(H) 7 - 45 Units/L [facility] AST 45 10 - 45 Units/L [facility] Comment:Hemolyzed; result ma y be falsely elevated Blood 04/13/2025 12:4 6 AM CDT 04/13/2025 12:58 AM CDT us Heeln Chanel MD LAB BLOOD ORDERABLES Sandra l Result [facility] Department [place] [address] from Last 3 Months Insurance [facility] CHOICE PLUS PATIENT'S CHOICE [facility] Advance Directives For more information, please contact: [phone] * Full Code (Latest Code Status on File) Date Activated Date Inactivated Comments 08/15/2022 3:10 PM 08/18/2022 6:09 PM Care Teams Kitchen Porter Relationship Specialty Start Date End Date Lucas Carter DO PCP - General Internal Medicine 08/15/22
--- OUTSIDE RECORDS SUMMARY | 2025-06-26 02:45 | XMS_ITS | Clinical Summary ---
Author Organization [facility] [employer] Address [address] [place] [address] Care Team Providers Care Library Services Coordinator Name Role Phone Damian Sadler MD Primary Care Provider [phone] Source Comments [facility] [employer],non-owned Affiliates and Associated Physician Practices is amultiple site organization consisting of ambulatory clinics and hospital sitesin [place], [place], [place] and [place]. This disclosure is being madepursuant to the Care Everywhere program and may not contain all information available regarding this patient. 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 Gender Identity Not on file Sexual Orientation [...] Resulting Agency Comment Lab Testing performed at: [facility] [id number] Nancy Cotto MD LAB - CHEMISTRY ORDERABLES Final Result [facility] INSURANCE BILL [address] [place] [address] * (ABNORMAL) COMPREHENSIVE METABOLIC PANEL (02/03/2024 1:03 AM [facility]) BUN 9 7 - 26 mg/dL 02/03/2024 [...] - 295 mOsm/kg 02/03/2024 1:45 AM CDT [facility] Albumin/Globulin Ratio 1.3 1.1 - 2.3 02/03/2024 1:45 AM CDT [facility] eGFR by CKD-EPI >90 >=90 mL/min/1.7 3 m2 02/03/2024 1:45 AM CDT [facility] Blood BLOOD SPECIMEN / Unknown Venipuncture / Unknown 02/03/2024 1:03 AM CDT 02/03/2024 1:17 AM CDT us Kaylee Reyes MD LAB - CHEMISTRY ORDERABLES Fi nal Result [facility] [address] [place] [address], [facility] [phone] from Last 3 Months or Most Recently Relevant to Health Maintenance Insurance [phone] (Work) [address] [place] [id number] MEDICAID [place] SELF PAY NO INSURANCE Member Subscriber Plan / Payer (Ef fective for All Dates) Name:Tita Luke Member ID:Not on file Relation to Subscriber:Not on file Name:TITA LUKE Subscriber ID:Not on file (Home) Address: [address] [place] [id number] Payer ID:Not on file Group ID:Not on file Type:Self Pay Address: [facility] [id number] [place] [address] * Guarantor: TITA LUKE Account Type Relation to Patient Date of Phone Billing Address Personal/Family Spouse [address] [place] [phone] Care Teams Library Services Coordinator Relationship Specialty Start Date End Date Sadler, Damian C, MD PCP - General Internal Medicine 07/04/16
--- OUTSIDE RECORDS SUMMARY | 2025-06-26 02:46 | XMS_ITS | Clinical Summary ---
Author Organization [facility] Address [address] [place] [address] Phone Care Team Providers Care Nurse Specialist Name Role Phone Damian Diamond MD Primary Care Provider [phone] Allergies Active Allergy Reactions Criticality Noted Date [...] for Severe pain. 10 Tablet 04/20/2025 Active Encounters Date Type Department Care Team Description 04/26/2025 9:49 PM CDT - 04/27/2025 2:14 AM CDT Emergency [facility] Emergency [address] [place] [address] Paul Daniels MD Cystitis Discharge Disposition: Discharged to home or Selfcare 04/26/2025 Travel 04/20/2025 7:00 PM CDT - 04/20/2025 8:55 PM CDT Emergency [facility] Emergency 1 [facility] [place] [address] Paul Daniels MD Acute cystitis without hematuria Discharge Disposition: Discharged to home or Selfcare 04/20/2025 Travel 04/04/2025 Travel from Last 3 Months Immunizations Immunization [...] drink = 0.6 oz pur e alcohol) [facility] Utilities Answer Date Recorded In the past [...] often do you attend chur ch or holiness services? Never 01/11/2025 Do you belong to any clubs o r organizations such as yazidi groups, unions, fraternal or athletic groups, or [...] medical care, and heating? Somewhat hard 01/11/2025 [facility] [place] [facility] Occup[facility] ional [facility] - Occupational Stress [...] any time in the past 12 m [facility], were you homeless or living in a [...] WITH DIFF STAT 04/20/2025 6:04 PM CDT [facility] DIAG BILATERAL DIGITAL W CAD W [place] Routine 02/18/2025 8:53 AM CDT Abnormal mammogram from Last 3 Months or Most Recently Relevant to Health Maintenance Results * CT ABDOMEN PELVIS W/ CONTRAST [...] and any related communication were provided by [facility] Hours [facility], as documented in the medical record. Narrative 04/27/2025 6:04 AM CDT DICTATING PHYSICIAN: Zack Byrnes M.D., [facility] EXAM: CT ABDOMEN PELVIS W/ [...] - 04/27/2025 DICTATING PHYSICIAN: Zack Byrnes M.D., [facility] EXAM: CT ABDOMEN PELVIS W/ CONTRAST [...] [facility] and [facility], as documented in the medical record. Paul Daniels MD IMG CT ORDERABLES Final Re sult * (ABNORMAL) URINALYSIS REFLEX IF INDICATED BY ABNORMAL RESULTS (04/26/2025 10:03 PM CDT) Only the most recent of2 resultswithin the time period is included. SPECIFIC GRAVITY 1.025 1.003 - 1.030 04/26/2025 10:33 PM CDT [facility] URINE PH 6.0 5.0 - 9.0 04/26/2025 10:33 PM CDT [facility] WBC ESTERASE 25 /ul(A) Negative 04/26/2025 10:33 PM CDT [facility] NITRITE Negative Negative 04/26/2025 10:33 PM CDT [facility] PROTEIN, RANDOM URINE 30 mg/dL(A) Negative 04/26/2025 10:33 PM CDT [facility] URINE GLUCOSE, QUAL Negative Negative 04/26/2025 10:33 PM CDT [facility] URINE KETONES Negative Negative 04/26/2025 10:33 PM CDT [facility] UROBILINOGEN Normal Normal mg/dL 04/26/2025 10:33 PM CDT [facility] URINE BLOOD 250 /uL(A) Negative thais/ul 04/26/2025 10:33 PM CDT [facility] URINALYSIS COLOR Yellow 04/26/20 10:33 PM CDT [facility] URINALYSIS CLARITY Slightly Cloudy 04/26/2025 10:33 PM CDT [facility] WBC (Urine) 6-10(A) Negative, 0-5 /hpf 04/26/2025 10:33 PM CDT [facility] URINE RBC'S 21-50(A) Negative, 0-2 /hpf 04/26/2025 10:33 PM CDT [facility] EPITHELIAL CELLS Small amount /lpf 2024 10:33 PM CDT [facility] BACTERIA, URINE Many(A) Negative /hpf 04/26/2025 10:33 PM CDT [facility] CRYSTALS Calcium oxalate 04/26/2025 10:33 PM CDT [facility] Urine URINE SPECIMEN / Unknown Non-Phlebotomy Collection / Unknown 04/26/2025 10:03 PM CDT 04/26/2025 10:11 PM CDT Paul Daniels MD URINE ORDERABLES Final Res ult [facility] [address] [place] [address] * Culture, Urine (04/26/2025 10:03 PM CDT) Only the most recent of2 resultswithin the time period is included. CULTURE RESULTS Mixed Growth of One or More Distal Urethral Contaminants 04/28/2025 9:21 AM CDT [facility] URINE SPECIMEN / Unknown Non-Phlebotomy Collection / Unknown 04/26/2025 10:03 PM CDT 04/26/2025 10:11 PM CDT Paul Daniels MD MICROBIOLOGY - GENERAL ORD ERABLES Final Result [facility] [address] [place] [address], [place] * Gold Top Tube (04/26/2025 10:01 PM CDT) Blood No Phlebotomy Charged / Unknown 04/26/2025 10:01 PM CDT 04/26/2025 10:11 PM CDT Paul Daniels MD CHEMISTRY ORDERABLES Final Result [facility] [address] [place] [address] * Blue Top Tube (04/26/2025 10:01 PM CDT) Blood No Phlebotomy Charged / Unknown 04/26/2025 10:01 PM CDT 04/26/2025 10:11 PM CDT us Paul Daniels MD HEMATOLOGY ORDERABLES Sandra l Result [facility] [address] [place] [address] * CBC with Auto Differential (04/26/2025 10:01 PM CDT) Only the most recent of2 resultswithin the time period is included. WBC 8.33 4.00 - 12.00 10(3)/mcL 04/26/2025 10:18 PM CDT [facility] RBC 4.91 3.80 - 5.30 10(6)/[facility] 04/26/2025 10:18 PM CDT [facility] HEMOGLOBIN (HGB) 15.1 12.0 - 15.8 g/dL 04/26/2025 10:18 PM CDT [facility] HEMATOCRIT (HCT) 42.6 36.0 - 47.0 % 04/26/2025 10:18 PM CDT [facility] MCV 86.8 82.0 - 96.0 fL 04/26/2025 10:18 PM CDT [facility] MCH 30.8 26.0 - 34.0 pg 04/26/2025 10:18 PM CDT [facility] MCHC 35.4 31.0 - 36.0 g/dL 04/26/2025 10:18 PM CDT [facility] PLATELET COUNT 229 140 - 440 10(3)/mcL 04/26/2025 10:18 PM CDT [facility] RDW 12.3 11.8 - 15.5 % 04/26/2025 10:18 PM CDT [facility] MPV 10.3 9.7 - 12.4 fL 04/26/2025 10:18 PM CDT [facility] NEUTROPHILS 57.9 47.0 - 73.0 % 04/26/2025 10:18 PM CDT [facility] LYMPHOCYTES 33.0 18.0 - 42.0 % 04/26/2025 10:18 PM CDT [facility] MONOCYTES 7.4 4.0 - 12.0 % 04/26/2025 10:18 PM CDT [facility] EOSINOPHILS 1.1 0.0 - 5.0 % 04/26/2025 10:18 PM CDT [facility] BASOPHILS 0.4 0.0 - 1.0 % 04/26/2025 10:18 PM CDT [facility] IMMATURE GRANULOCYTE 0.2 0.0 - 0.4 % 04/26/2025 10:18 PM CDT [facility] ABSOLUTE NEUTROPHILS 4.82 1.60 - 7.70 10(3)/[facility] 04/26/2025 10:18 PM CDT [facility] ABSOLUTE LYMPHOCYTES 2.75 1.30 - 3.20 10(3)/[facility] 04/26/2025 10:18 PM CDT [facility] ABSOLUTE MONOCYTES 0.62 0.20 - 1.00 10(3)/[facility] 04/26/2025 10:18 PM CDT [facility] ABSOLUTE EOSINOPHIL 0.09 0.00 - 0.40 10(3)/[facility] 04/26/2025 10:18 PM CDT [facility] ABSOLUTE BASOPHILS 0.03 0.00 - 0.10 10(3)/[facility] 04/26/2025 10:18 PM CDT [facility] ABSOLUTE IMMATURE GRANULOCYTE 0.02 0.00 - 0.03 10 (3) mcL. 04/26/2025 10:18 PM CDT [facility] NRBC PER 100 WBC 0 04/26/20 10:18 PM CDT [facility] Blood Venipuncture / Unknown 04/26/2025 10:01 PM CDT 04/26/2025 10:12 PM CDT us Paul Daniels MD HEMATOLOGY ORDERABLES Sandra etienne Result [facility] [address] [place] [address] * (ABNORMAL) CMP (Comprehensive Metabolic Panel) (04/26/2025 10:01 PM CDT) Only the most recent of2 resultswithin the time period is included. SODIUM 141 136 - 145 mmol/L 04/26/2025 10:46 PM CDT [facility] POTASSIUM 2.7(LL) 3.5 - 5.1 mmol/L 04/26/2025 10:46 PM CDT [facility] CHLORIDE 104 98 - 107 mmol/L 04/26/2025 10:46 PM CDT [facility] CO2, VENOUS 22 22 - 30 mmol/L 04/26/2025 10:46 PM CDT [facility] ANION GAP 17.7 <18.0 mmol/L 04/26/2025 10:46 PM CDT [facility] GLUCOSE 140(H) 70 - 99 mg/dL 04/26/2025 10:46 PM CDT [facility] BUN 14 5 - 18 mg/dL 04/26/2025 10:46 PM CDT [facility] CREATININE, BLOOD 0.80 0.60 - 1.00 mg/dL 04/26/2025 10:46 PM CDT [facility] BUN/CREATININE RATIO 18 12 - 20 ratio 04/26/2025 10:46 PM CDT [facility] TOTAL PROTEIN 7.5 6.0 - 8.0 g/dL 04/26/2025 10:46 PM CDT [facility] ALBUMIN 4.8 3.5 - 5.0 g/dL 04/26/2025 10:46 PM CDT [facility] A/G RATIO 1.8 1.0 - 2.2 04/26/2025 10:46 PM CDT [facility] CALCIUM 9.5 8.7 - 10.5 mg/dL 04/26/2025 10:46 PM T [facility] T BILI 0.6 0.2 - 1.2 mg/dL 04/26/2025 10:46 PM CDT [facility] SGOT (AST) 33 <43 U/L 04/26/2025 10:46 PM T [facility] SGPT (ALT) 43 <56 U/L 04/26/2025 10:46 PM T [facility] ALKALINE PHOSPHATASE 81 40 - 150 U/L 04/26/2025 10:46 PM [facility] GFR, ESTIMATED >60 >=60 04/26/2025 10:46 PM [facility] Comment: Creatinine Clearance is the preferred criteria for selecting drug dose adjustments in renally impaired patients. The GFR is provided as additional pertinent clinical information. GFR is reported in mL/min/1.73 sq m. Calculation based on the 2020 Chronic Kidney Disease Epidemiology Collaboration (CKD-EPI) equation refit without adjustment for race. GFR, EST. >60 >=60 025 10:46 PM [facility] Comment: Creatinine Clearance is the preferred criteria for selecting drug dose adjustments in renally impaired patients. The GFR is provided as additional pertinent clinical information. GFR is reported in mL/min/1.73 sq m. Calculation based on the 2009 Chronic Kidney Disease Epidemiology Collaboration (CKD-EPI). GFR, EST. NONAFRICAN >60 >=60 04/26/2025 10:46 PM [facility] Comment: Creatinine Clearance is the [...] Paul Daniels MD CHEMISTRY ORDERABLES Final Result [facility] [address] [place] [address] * CT - ABDOMEN/PELVIS (04/26/2025 12:00 AM CDT) 04/26/2025 us Provider Scan IMG CT ORDERABLES Final Result Performing Organization Address City/[facility]/ZIP Co de Phone Number SCAN * [facility]OL[facility] DIAG BILATERAL DIGITAL W CAD [...] signed by: Cris Quintana M.D. ab/:02/18/2025 09:33:34 Forest Ecology Professor(s): Jana Mei, RT(R)(M), [facility]; Jessica Vazquez RDMS OBGYN, [facility] letter sent: Normal Exam Abnormal History Reading location: [facility] OVERALL STUDY BIRADS: Category 1: Negative Procedure [...] signed by: Cris Quintana M.D. ab/:02/18/2025 09:33:34 Forest Ecology Professor(s): RT Jocelin(R)(M), [facility]; MARCELO Rowley, [facility] letter sent: Normal Exam Abnormal History Reading location: [facility] STUDY BIRADS: Category 1: Negative Damian Diamond MD IMG MAMMO ORDERABLES Final Re sult from Last 3 Months or Most Recently Relevant to Health Maintenance Insurance [employer] Care Teams Nurse Specialist Relationship Specialty Start Date End Date Damian Diamond MD [address] [place] [address] PCP - General Family Medicine 01/13/25
--- NOTE | 2025-06-26 03:01 | PC.NURSE ---
This RN attempted to call lab to add on urine drug screen and received no answer. Charge notified.
[2025-06-26 03:19] LABS: Add Urine Microscopic? YES; Appearance Urine Cloudy (Clear); Glucose Urine UA Negative (Negative); Leukocyte Esterase Ur 1+ LEU/UL (Negative); Nitrate Urine Negative (Negative); Non Pathogenic Casts 0-2; Specific Grav Ur 1.020 (1.001-1.035)
[2025-06-26 03:37] LABS: Cannabinoid Screen Urine Negative (Negative)
[2025-06-26] MEDS: HYDROmorphone HCL INJ (*CRX) 1 MG/ML SYR IV PUSH (04:09)
[2025-06-26] MEDS: IBUPROFEN 600 MG TABLET PO (04:37)
[2025-06-26] MEDS: cefTRIAXone 1 GM in SODIUM CHLORIDE 0.9% IV 50 ML 100 ML IVPB (04:38)
== END 2025-06-26 05:05 | disposition home or self-care (01) ==
PROVIDERS: Emergency Provider Emergency Medicine; PCP Internal Medicine
DX: N13.2 Hydronephrosis with renal and ureteral calculous obstruction (principal); I10 Essential (primary) hypertension; T46.5X6A Underdosing of other antihypertensive drugs, initial encounter; E66.9 Obesity, unspecified; Z68.33 Body mass index [BMI] 33.0-33.9, adult; K21.9 Gastro-esophageal reflux disease without esophagitis; G47.53 Recurrent isolated sleep paralysis; F17.210 Nicotine dependence, cigarettes, uncomplicated; Z87.442 Personal history of urinary calculi; Z90.710 Acquired absence of both cervix and uterus; Z90.49 Acquired absence of other specified parts of digestive tract; Z79.899 Other long term (current) 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
CPT/HCPCS: 36415; 74176; 80053; 80307; 81001; 83690; 85025; 87086; 96365; 96375; 99284; A9270; J0696; J1171